=== PATIENT | female | born 1975 | race Caucasian/White ===

== ENCOUNTER 2020-10-15 09:43 | Emergency (ER) | payer OTHER, SELFPAY ==
--- NOTE | ~2020-10-15 | XR_ITS ---
EXAMINATION: XR wrist RT min 3V DATE: 10/15/2020 10:00 INDICATION: Right wrist injury and pain. TECHNIQUE: 4 views of right wrist were obtained. COMPARISON: None. FINDINGS: Bone alignment is normal. No fracture. Joint spaces are well maintained. IMPRESSION: 1. Normal right wrist. Reviewed, dictated and finalized at location A. IMPRESSION: 1. Normal right wrist.
[2020-10-15 09:50] VITALS: BP 150/79; PULSE 80; RESP 16; TEMP 36.3; O2SAT 100
--- NOTE | 2020-10-15 10:13 | ED.UPPEXIN ---
HPI - Extremity Injury (Upper) General Chief Complaint: Extremity Injury, Upper Stated Complaint: rt wrist injury Time Seen by Provider: 10/15/20 10:05 Source: patient and RN notes reviewed Mode of arrival: ambulatory Limitations: no limitations History of Present Illness HPI narrative: Patient presents today complaining of right wrist pain. Around midnight, she slammed her printer drawer closed at home and experienced sudden pain in her wrist. Denies numbness or tingling. Pain increases with movement of the wrist or thumb. She has been taking ibuprofen with some relief. She has also been wearing a wrist brace since the injury. Currently rates her pain at rest 2/10, which increases to 4/10 with movement. MD complaint: injury to: right and wrist Related Data Home Medications Medication Instructions Recorded Confirmed aspirin [Adult Low Dose Aspirin] 81 mg PO DAILY 10/15/20 10/15/20 atorvastatin 10/15/20 canagliflozin [Invokana] mg 10/15/20 liraglutide [Victoza 3-Marvel] mg SUBCUT 10/15/20 lisinopril 10/15/20 loratadine [Claritin] 10 mg PO DAILY 10/15/20 10/15/20 montelukast mg 10/15/20 Allergies Allergy/AdvReac Type Severity Reaction Status Date / Time amoxicillin Allergy Unknown Nausea and Verified 10/15/20 10:02 Vomiting glipizide Allergy Unknown NAUSEA AND Verified 10/15/20 10:02 VOMITING metformin Allergy Unknown Nausea and Verified 10/15/20 10:02 Vomiting hydrocodone AdvReac Unknown Nausea and Verified 10/15/20 10:02 Vomiting Review of Systems Review of Systems: Narrative: CONSTITUTIONAL: Denies body aches, fever, chills, or sweats. EYES: Denies visual changes, redness, or discharge. ENT: Denies rhinorrhea, congestion, sore throat, or otalgia. CARDIOVASCULAR: Denies chest pain, palpitations, or edema. RESPIRATORY: Denies cough or dyspnea. GASTROINTESTINAL: Denies abdominal pain, nausea, vomiting, or diarrhea. GENITOURINARY: Denies dysuria or hematuria. SKIN: Denies rash, itching, or wounds. MUSCULOSKELETAL: Denies back pain, or myalgia. + Right wrist injury NEUROLOGIC: Denies headache, numbness, tingling, or weakness. PSYCH: Denies depression or anxiety. [facility] Past Medical History Medical History (Updated 10/15/20 @ 10:18 by Rosanne Orlando, [employer], ) Diabetes Hypercholesterolemia Hypertension Comments At time of signature, I have reviewed and agree with nursing past medical, surgical, social and family history unless otherwise noted. Please see nursing chart for further information. There is no relevant family history pertinent to the presenting complaint Exam Narrative: Exam Narrative: GENERAL: Well-appearing, well-nourished, and in no acute distress. HEAD: Normocephalic, atraumatic. EYES: EOMI. No redness or drainage. Conjunctivae normal. ENT: Mucous membranes pink and moist. NECK: Normal AROM. CHEST: No respiratory distress. EXTREMITIES: Right wrist: Tenderness to the distal radius and thenar eminence without edema, ecchymosis, or erythema. No deformity noted. Full range of motion with increased pain with pronation. Distal sensation intact. Capillary refill normal. Radial pulse normal. SKIN: Warm, dry, no rash. Capillary refill normal. Normal skin turgor. NEURO: No focal deficits. Alert and oriented x3. Gait steady. PSYCH: Normal affect. No signs of depression or anxiety. Course Vital Signs Vital signs: Vital Signs Temperature 97.4 F L 10/15/20 09:50 Pulse Rate 80 10/15/20 09:50 Respiratory Rate 16 10/15/20 09:50 Blood Pressure 150/79 H 10/15/20 09:50 Pulse Oximetry 100 10/15/20 09:50 Temperature 97.4 F L 10/15/20 09:50 Pulse Rate 80 10/15/20 09:50 Respiratory Rate 16 10/15/20 09:50 Blood Pressure 150/79 H 10/15/20 09:50 Pulse Oximetry 100 10/15/20 09:50 Reviewed. Pt has been instructed to follow up with her PCP regarding her elevated blood pressure today. MDM - Extremity Injury (Upper) Differential Diagnosis
== END 2020-10-15 10:37 | disposition home or self-care (01) ==
PROVIDERS: Emergency Provider Nurse Practitioner; PCP Internal Medicine
DX: S63.501A Unspecified sprain of right wrist, initial encounter (principal); X50.9XXA Other and unspecified overexertion or strenuous movements or postures, initial encounter; E11.9 Type 2 diabetes mellitus without complications; E78.00 Pure hypercholesterolemia, unspecified; I10 Essential (primary) hypertension
CPT/HCPCS: 73110; 99203; G0463

== ENCOUNTER 2023-05-25 10:28 | Inpatient (IN) | payer OTHER, SELFPAY ==
[2023-05-25] VITALS (8 sets, daily range): BP systolic 146–175; BP diastolic 83–98; PULSE 108–119; RESP 18–19; TEMP 36.6–38.9; O2SAT 98–100; BMI 48.0
--- NOTE | ~2023-05-25 | XR_ITS ---
Clinical Indication: Cough PA and lateral views of the chest: Comparison: None Findings: The lungs are clear, without evidence of focal consolidation or pleural effusion. Cardiome diastinal silhouette is within normal limits. Bones and soft tissues are unremarkable. Impression: Normal chest. Reviewed, dictated and finalized at location . Impression: Normal chest.
--- NOTE | ~2023-05-25 | XR_ITS ---
EXAMINATION: XR tibia fibula RT 2V DATE: 05/26/2023 18:06 INDICATION: Right lower leg cellulitis. TECHNIQUE: 2 views of right tibia and fibula on 3 radiographs were obtained. COMPARISON: Right knee radiographs 05/09/2013 FINDINGS: Bone alignment is normal. No fracture. There is mild right knee osteoarthritis. There is dill bcutaneous edema in the lower leg. IMPRESSION: 1. Mild right knee osteoarthritis. Reviewed, dictated and finalized at location E.
--- NOTE | ~2023-05-25 | US_ITS ---
EXAMINATION:US venous doppler LE BI INDICATION:Leg swelling TECHNIQUE: Multiple grayscale, color flow and Doppler images of the right and left lower extremity de ep venous systems were obtained and reviewed. COMPARISON:No prior studies for comparison. FINDINGS: The common femoral, superficial femoral and popliteal veins demonstrate normal respiratory variation, augmentation and compressibility. Color flow is also seen within the posterior tibial, pe roneal, greater saphenous and profunda veins. There is right inguinal lymphadenopathy, largest measuring 3.9 x 2.6 x 1.9 cm. IMPRESSION: 1: No lower extremity deep venous thrombosis. 2: Right inguinal lymphadenopathy. Reviewed, dictated and finalized at location B.
--- NOTE | 2023-05-25 10:51 | ED.GENADULT ---
HPI - General Adult General Chief complaint: Unspecified Stated complaint: body aches, fever, lower leg red pain Time Seen by Provider: 05/25/23 10:42 History of Present Illness HPI narrative: Pt presents with low grade fever and body aches and redness to right leg since yesterday. Pt is daibetic as well. Pt has no prior history of celllulitis. Pt also has runny nose. Related Data Home Medications Medication Instructions Recorded Confirmed aspirin 81 mg tablet 81 mg PO DAILY 10/15/20 10/15/20 atorvastatin 20 mg tablet 10/15/20 canagliflozin 300 mg tablet mg 10/15/20 (Invokana) liraglutide 0.6 mg/0.1 mL (18 mg/3 mg subcut 10/15/20 mL) subcutaneous pen injector (Victoza 3-Marvel) lisinopril 10 mg tablet 10/15/20 loratadine 10 mg tablet (Claritin) 10 mg PO DAILY 10/15/20 10/15/20 montelukast 10 mg tablet mg 10/15/20 Allergies Allergy/AdvReac Type Severity Reaction Status Date / Time amoxicillin AdvReac Unknown Nausea and Verified 05/25/23 13:37 Vomiting glipizide AdvReac Unknown NAUSEA AND Verified 05/25/23 13:37 VOMITING hydrocodone AdvReac Unknown Nausea and Verified 05/25/23 10:43 Vomiting metformin AdvReac Unknown Nausea and Verified 05/25/23 13:37 Vomiting Review of Systems Review of Systems: All systems reviewed & are unremarkable except as noted in HPI and below PMFSH Past Medical History Medical History (Updated 05/25/23 @ 17:43 by Jose Jacobson APRN) Diabetes Hypercholesterolemia Hypertension JEREMY on CPAP Exam Const: General: cooperative, comfortable, no acute distress and well developed Nutritional Appearance: obese Orientation/consciousness: patient oriented x3 Limitations: no limitations Eyes: Conjunctivae: conjunctivae normal Neck: Neck: normal visual inspection and full ROM Resp: Effort & Inspection: normal respiratory effort and able to speak in complete sentences Auscultation: clear to auscultation bilaterally Cardio: Rate: regular rate Rhythm: regular rhythm GI: GI Palp: Yes Soft to palpation Percussion: Yes normal to percussion Auscultation: normal bowel sounds Skin: General skin exam: erythema (erythema to rle from ankle to just above knee) Neuro: General: patient oriented x3, moves all extremities and no meningeal signs Cranial nerves: Yes CN's II-XII intact bilaterally Extrem: General: full ROM and capillary refill normal Psych: Appearance: grossly normal Mental Status: mental status grossly normal Speech and movement: Normal speech and movement present Affect: normal affect Attitude: cooperative Thought content: Yes Normal thought content present Course Vital Signs Vital signs: Vital Signs Temperature 97.8 F 05/25/23 10:30 Pulse Rate 115 H 05/25/23 10:30 Respiratory Rate 18 05/25/23 10:30 Blood Pressure 154/98 H 05/25/23 10:30 Pulse Oximetry 100 05/25/23 10:30 Oxygen Delivery Room Air 05/25/23 10:30 Temperature 98.7 F 05/25/23 15:15 Pulse Rate 108 H 05/25/23 15:15 Respiratory Rate 19 05/25/23 15:15 Blood Pressure 175/89 H 05/25/23 15:15 Pulse Oximetry 98 05/25/23 15:15 Oxygen Delivery Room Air 05/25/23 10:30 Medical Decision Making MDM Narrative Medical decision making narrative: pt has what appears to be simple cellulitis but has progressed failrly quickly. pt is diabetic as well. will give ancef and check labs. wbc elevated glucose elevated others relativley normal. will admit for IV antibiotics. discussed with Tvao Nguyen and agrees to admit. Vital Signs Vital Signs: Vital Signs Temperature 97.8 F 05/25/23 10:30 Pulse Rate 115 H 05/25/23 10:30 Respiratory Rate 18 05/25/23 10:30 Blood Pressure 154/98 H 05/25/23 10:30 Pulse Oximetry 100 05/25/23 10:30 Oxygen Delivery Room Air 05/25/23 10:30 Temperature 98.7 F 05/25/23 15:15 Pulse Rate 108 H 05/25/23 15:15 Respiratory Rate 19 05/25/23 15:15 Blood Pressure 175/89 H 05/25/23 15:15
[2023-05-25 11:12] LABS: Hematocrit 39.3 % (37.0-47.0); Hemoglobin 12.9 g/dL (12.0-15.0); Mean Corpuscular HGB Conc 32.8 g/dl (32-36); Mean Corpuscular Hemoglobin 28.5 pg (26-34); Mean Corpuscular Volume 86.8 fl (80-100); Mean Platelet Volume 10.9 fl (7.4-10.4); Platelet Count Result 212 k/mm3 (150-375); Red Blood Count 4.53 M/mm3 (4.2-5.4); Red Cell Distribution Width 13.9 % (11.5-14.5); White Blood Count 13.6 K/mm3 (4.5-10.0)
[2023-05-25 11:22] LABS: Prothrombin Time 13.8 Seconds (11.1-14.7)
[2023-05-25 11:24] LABS: Lactic Acid Reflex 1.6 mmol/L (0.7-2.0); Partial Thromboplastin Time 41.1 SECONDS (22.3-36.8)
[2023-05-25 11:25] LABS: Alanine Aminotransferase 52 U/L (6-35); Albumin Level 3.5 g/dL (3.5-5.1); Alkaline Phosphatase 132 U/L (38-126); Anion Gap 7 mmol/L (8-16); Aspartate Amino Transferase 48 U/L (14-36); Bilirubin,Total 0.9 mg/dL (0.2-1.3); Blood Urea Nitrogen 16 mg/dL (7-17); Calcium 9.1 mg/dL (8.4-10.2); Carbon Dioxide 24 mmol/L (22-30); Chloride 98 mmol/L (98-107); Estimated CRCL calculation 122 ml/min; Estimated Glomerular Filt Rate > 60; Glucose 346 mg/dL (65-110); Potassium 3.9 mmol/L (3.4-5.0); Sodium 129 mmol/L (137-145)
[2023-05-25 11:27] LABS: Band Neutrophils Percent 15 % (0-6); Lymphocytes Absolute Manual 0.81 K/mm3 (1.1-4.5); Monocytes Absolute Manual 0.27 K/mm3 (0.1-0.90); Monocytes Percent Manual 2 % (3-9); Neutrophils Absolute Manual 12.51 K/mm3 (1.7-7.2); Neutrophils Percent Manual 77 % (46-73); Total Cells Counted 100
[2023-05-25 11:28] LABS: Platelet Estimate Adequate (Adequate); Schistocytes None Seen (NORMAL)
[2023-05-25 11:35] LABS: Appearance Urine Turbid (Clear); Bacteria Urine 4+ /hpf; Bilirubin Urine 2+ (Negative); Blood Urine Negative (Negative); Budding Yeast Urine Present /hpf; Color Urine Dark Yellow (Yellow); Glucose Urine UA 3+ mg/dL (Negative); Ketones Urine 3+ mg/dL (Negative); Leukocyte Esterase Ur Negative LEU/UL (Negative); Nitrate Urine Negative (Negative); Non Pathogenic Casts >20; Protein Urine 2+ mg/dL (Negative); RBC Urine >100 /hpf (0-2); Squamous Epithelial Cell Urine Many /hpf (Few); pH Urine 5.5 (5.0-9.0)
[2023-05-25 11:36] LABS: Specific Grav Ur 1.051 (1.001-1.035)
[2023-05-25 11:37] LABS: Add Urine Microscopic? YES
[2023-05-25] MEDS: ceFAZolin 1 GM/NS 50 ML 1 GM/50 ML BAG IVPB (11:46)
[2023-05-25 11:57] LABS: Influenza A QL RT-PCR Negative (Negative); Influenza B QL RT-PCR Negative (Negative); RSV RNA, RT-PCR Negative (Negative); SARS-CoV-2 RNA PCR Negative (Negative)
[2023-05-25 12:15] LABS: CRP 38.8 mg/dL (<1.0)
[2023-05-25 13:40] LABS: Glucose Point of Care 300 mg/dl (65-105)
--- NOTE | 2023-05-25 14:08 | PM.IMHP ---
H&P: HPI History of Present Illness Date/Time: 05/25/23 14:08 Chief Complaint: Cellulitis right lower extremity Narrative: This is a 47-year-old female patient insulin-dependent diabetic who presents to the emergency department with 2 day history viral symptoms as well as right lower extremity warmth erythema swelling and tenderness. Patient reports that her blood sugars have been higher than usual recently. She reports her some viral symptoms for several days and then she developed symptoms on Thursday (2 days ago) that included runny nose lightheadedness nausea fever. Patient reports noticing her right lower extremity being red tender so she presented to the emergency department today for evaluation. Patient does not recall any injury to the extremity. Patient reports a history of hypertension diabetes and seasonal allergies. She is also cholesterol medication for preventative measures. She also has a history of obstructive sleep apnea for which she uses CPAP. Patient denies smoking drug use or significant alcohol use. She has a past surgical history right knee arthroscopy and myomectomy. Review of Systems Review of Systems: All systems reviewed & are unremarkable except as noted in HPI and below PMFSH Past Medical History Medical History (Updated 05/25/23 @ 17:43 by Jose Jacobson APRN) Diabetes Hypercholesterolemia Hypertension JEREMY on CPAP Meds Home Medications and Allergies Home Medications Medication Instructions Recorded Confirmed Type aspirin 81 mg tablet 81 mg PO DAILY 10/15/20 10/15/20 History atorvastatin 20 mg tablet 10/15/20 History canagliflozin 300 mg tablet mg 10/15/20 History (Invokana) liraglutide 0.6 mg/0.1 mL (18 mg/3 mg subcut 10/15/20 History mL) subcutaneous pen injector (Victoza 3-Marvel) lisinopril 10 mg tablet 10/15/20 History loratadine 10 mg tablet (Claritin) 10 mg PO DAILY 10/15/20 10/15/20 History montelukast 10 mg tablet mg 10/15/20 History Allergies Allergy/AdvReac Type Severity Reaction Status Date / Time amoxicillin AdvReac Unknown Nausea and Verified 05/25/23 13:37 Vomiting glipizide AdvReac Unknown NAUSEA AND Verified 05/25/23 13:37 VOMITING hydrocodone AdvReac Unknown Nausea and Verified 05/25/23 10:43 Vomiting metformin AdvReac Unknown Nausea and Verified 05/25/23 13:37 Vomiting Vital Signs Vital Signs - 24 hr 05/25/23 10:30 05/25/23 12:31 05/25/23 12:46 Temperature 36.6 C Pulse Rate 115 H Respiratory Rate 18 Blood Pressure 154/98 H 148/96 H 146/90 H Pulse Oximetry 100 Oxygen Delivery Room Air 05/25/23 13:46 Temperature Pulse Rate Respiratory Rate Blood Pressure 159/86 H Pulse Oximetry Oxygen Delivery Exam Narrative: GENERAL: Generally well appearing, alert and oriented, in no apparent distress. She is pleasant and conversant in full sentences. HEENT: Pupils are equally round and briskly reactive to light. Extraocular muscles are intact. Oral mucous membranes are moist without lesions. NECK: The patient has no noted JVD. No adenopathy is appreciated. CHEST/LUNGS: Lungs are clear bilaterally without rhonchi, rales, or wheezes. There is no subcutaneous air appreciated. There is no tenderness to the chest wall. HEART: The patient has a regular rate and rhythm. No murmurs, rubs, or gallops are appreciated. Distal pulses are 2+. No carotid bruits appreciated. ABDOMEN: The patient?s abdomen is obese, soft, nontender, and nondistended. Bowel sounds are positive. No organomegaly is appreciated. No masses are appreciated. There are no peritoneal signs. There is no Morris?s sign. EXTREMITIES: Right lower extremity has blanchable erythema just above the knee down to mid foot that is mildly swollen tender to the touch and erythematous with mild breaking skin likely from shaving in a couple spots. Equivocal Homans. There is no focal long bone tenderness or deformity. SKIN: The patient?s skin is oth
[2023-05-25] MEDS: ceFAZolin 2 GM/D5W 50 ML 2 GM/50 ML BAG IVPB ×2 (15:52→22:51)
[2023-05-25 17:01] LABS: Glucose Point of Care 343 mg/dl (65-105)
[2023-05-25 17:40] LABS: Hemoglobin A1C 9.9 % (<5.7)
[2023-05-25] MEDS: ENOXAPARIN 40 MG/0.4 ML SYRINGE SUB-Q (18:28)
[2023-05-25] MEDS: INSULIN ASPART (*BKC) 100 UNITS/ML 10 UNITS SUB-Q (18:29)
[2023-05-25] MEDS: INSULIN ASPART (*BKC) 100 UNITS/ML SUB-Q ×2 (18:29→21:29)
[2023-05-25] MEDS: SODIUM CHLORIDE 0.9% IV 1,000 ML 999 ML IV CONT (18:34)
[2023-05-25] MEDS: INSULIN GLARGINE (*BKC) 100 UNITS/ML 25 UNITS SUB-Q (21:28)
[2023-05-25] MEDS: ACETAMINOPHEN 500 MG TABLET 1000 MG PO (21:29)
[2023-05-25] MEDS: MONTELUKAST SODIUM 10 MG TABLET PO (21:29)
[2023-05-25] MEDS: ATORVASTATIN 20 MG TABLET PO (21:29)
[2023-05-25 22:23] LABS: Glucose Point of Care 320 mg/dl (65-105)
[2023-05-26 00:37] VITALS: TEMP 37.2
[2023-05-26] MEDS: ACETAMINOPHEN 500 MG TABLET 1000 MG PO ×2 (05:28→12:50)
[2023-05-26] MEDS: ceFAZolin 2 GM/D5W 50 ML 2 GM/50 ML BAG IVPB ×2 (05:29→14:09)
[2023-05-26 06:00] VITALS: BP 176/102; PULSE 110; RESP 18; TEMP 37.7; O2SAT 96
[2023-05-26 06:52] LABS: Basophils Absolute Auto 0.1 K/mm3 (0.0-0.1); Basophils Percent Auto 0.4 % (0.2-1.2); Eosinophils Percent Auto 0.2 % (0-4.4); Hemoglobin 11.7 g/dL (12.0-15.0); Immature Granulocyte Percent A 1.4 % (0-0.5); Lymphocytes Absolute Auto 1.05 K/mm3 (0.9-3.2); Lymphocytes Percent Auto 7.6 % (18.3-44.2); Mean Corpuscular HGB Conc 31.6 g/dl (32-36); Mean Corpuscular Volume 88.5 fl (80-100); Monocytes Absolute Auto 0.6 K/mm3 (0.1-0.6); Monocytes Percent Auto 4.5 % (2.6-8.5); Neutrophils Absolute Auto 11.9 K/mm3 (1.3-6.7); Neutrophils Percent Auto 85.9 % (45.5-73.1); Platelet Count Result 213 k/mm3 (150-375); Red Blood Count 4.18 M/mm3 (4.2-5.4); Red Cell Distribution Width 14.3 % (11.5-14.5); White Blood Count 13.8 K/mm3 (4.5-10.0)
[2023-05-26 07:50] LABS: Glucose Point of Care 222 mg/dl (65-105)
[2023-05-26 08:12] LABS: Albumin Level 3.5 g/dL (3.5-5.1); Anion Gap 11 mmol/L (8-16); Blood Urea Nitrogen 12 mg/dL (7-17); Calcium 8.6 mg/dL (8.4-10.2); Carbon Dioxide 22 mmol/L (22-30); Chloride 98 mmol/L (98-107); Estimated CRCL calculation 141 ml/min; Estimated Glomerular Filt Rate > 60; Glucose 232 mg/dL (65-110); Phosphorus 2.8 mg/dL (2.5-4.5); Potassium 3.4 mmol/L (3.4-5.0); Sodium 131 mmol/L (137-145)
[2023-05-26] MEDS: INSULIN ASPART (*BKC) 100 UNITS/ML SUB-Q ×4 (08:38→20:55)
[2023-05-26 08:40] VITALS: O2SAT 93
[2023-05-26] MEDS: INSULIN GLARGINE (*BKC) 100 UNITS/ML 25 UNITS SUB-Q ×2 (08:40→20:54)
[2023-05-26] MEDS: LORATADINE 10 MG TABLET PO (08:41)
[2023-05-26] MEDS: VENLAFAXINE HCL XR 75 MG CAP.ER.24H 150 MG PO (08:42)
[2023-05-26] MEDS: ASPIRIN 81 MG ENTERIC TABLET PO (08:42)
[2023-05-26] MEDS: lisinopriL 20 MG TABLET PO (08:42)
--- NOTE | 2023-05-26 09:09 | P.PNIM_ITS ---
Progress Note: A&P Assessment and Plan (1) Sepsis: Onset Date: ~05/25/23 Code(s): A41.9 - Sepsis, unspecified organism Status: Acute Assessment and Plan: 05/26/23: * patient meeting sepsis criteria on admission white blood cell count 13.6, temp 102?, pulse 115 * blood and urine cultures obtained * currently on cefazolin IV, will switch to ampicillin 3 g q.6 hour and we will be adding vancomycin IV. * Will check a toxoplasma IgG and toxoplasma IgM antibodies considering she has new cats in the home. * white blood cell count 13.8, absolute neutrophils 11.9 temp this morning 99.8, pulse 110, blood pressure 176/102, she remains on room air. * Continue to monitor labs (2) Cellulitis: Code(s): L03.90 - Cellulitis, unspecified Status: Acute Assessment and Plan: 05/25/23:(Copied from chart) * Right lower extremity appearance of cellulitis started on Ancef in the emergency department will continue Ancef 2 g q.8 hours. * White blood cell count elevated at 13.6, trend daily labs 05/26/23: * white blood cell count 13.8 * patient originally on Ancef 2 g Q 8 hours, we switched to ampicillin 3 g to 6 hour and vancomycin IV * checking toxoplasma IgG and IgM antibodies since she reported new cats in the home and currently has a scratch on her right leg and a small scabbed area. * May need to get Infectious Disease involved if she does not start responding to treatment. * tib-fib x-ray showing subcutaneous edema in the lower leg, mild right knee osteoarthritis. (3) Diabetes mellitus, insulin dependent (IDDM), uncontrolled: Status: Acute Assessment and Plan: 05/25/23:(copied from chart) * Patient reports poor glycemic control with last A1c greater than. She is combination long-acting and short-acting insulin. We will continue therapeutic substitution patient's insulin regimen as well as ACHS fingerstick glucose and high-dose corrective insulin. A1c ordered. 05/26/23: * Hemoglobin A1c 9.9, blood sugars ranging 222-312 today * continue Lantus 25 units b.i.d. as this is her home regimen * continue aspart 10 units subQ daily as this is her home regimen * added high-dose sliding scale * she will need tight glycemic control considering this new sepsis related to her cellulitis, may need adjustments in her Lantus tomorrow. (4) Hypertension: Qualifiers: Hypertension type: primary hypertension Qualified Code(s): I10 - Essential (primary) hypertension Code(s): I10 - Essential (primary) hypertension Status: Acute Assessment and Plan: 05/25/23: (copied from chart) * Stable, continue home medications. Blood pressure reviewed on 05/25. 05/26/23: * blood pressure ranging 176/102 to 190/102 * continue lisinopril 20 mg daily * I added hydralazine 10 mg IV push Q 8 hour p.r.n. with parameters * I also started patient on Norvasc 2.5 mg to start as this is not part of her daily regimen. If she still remains hypertensive tomorrow we may be able to make adjustments here. (5) JEREMY on CPAP: Code(s): G47.33 - Obstructive sleep apnea (adult) (pediatric) Status: Acute Assessment and Plan: 05/25/23: (copied from chart) * Patient plans on bring in home CPAP unit. Encourage compliance. 05/26/23: * Patient will use home CPAP * no change in current treatment plan (6) Hyponatremia: Code(s): E87.1 - Hypo-osmolality and hyponatremia Status: Acute Assessment and Plan: 05/25/23: (copied from chart) * Mild hyponatremia somewhat suppressed by elevated glucose.
--- NOTE | 2023-05-26 09:09 | PM.IMPN ---
Progress Note: A&P Assessment and Plan (1) Sepsis: Onset Date: ~05/25/23 Code(s): A41.9 - Sepsis, unspecified organism Status: Acute Assessment and Plan: 05/26/23: patient meeting sepsis criteria on admission white blood cell count 13.6, temp 102?, pulse 115 blood and urine cultures obtained currently on cefazolin IV, will switch to ampicillin 3 g q.6 hour and we will be adding vancomycin IV. Will check a toxoplasma IgG and toxoplasma IgM antibodies considering she has new cats in the home. white blood cell count 13.8, absolute neutrophils 11.9 temp this morning 99.8, pulse 110, blood pressure 176/102, she remains on room air. Continue to monitor labs (2) Cellulitis: Code(s): L03.90 - Cellulitis, unspecified Status: Acute Assessment and Plan: 05/25/23:(Copied from chart) Right lower extremity appearance of cellulitis started on Ancef in the emergency department will continue Ancef 2 g q.8 hours. White blood cell count elevated at 13.6, trend daily labs 05/26/23: white blood cell count 13.8 patient originally on Ancef 2 g Q 8 hours, we switched to ampicillin 3 g to 6 hour and vancomycin IV checking toxoplasma IgG and IgM antibodies since she reported new cats in the home and currently has a scratch on her right leg and a small scabbed area. May need to get Infectious Disease involved if she does not start responding to treatment. tib-fib x-ray showing subcutaneous edema in the lower leg, mild right knee osteoarthritis. (3) Diabetes mellitus, insulin dependent (IDDM), uncontrolled: Status: Acute Assessment and Plan: 05/25/23:(copied from chart) Patient reports poor glycemic control with last A1c greater than. She is combination long-acting and short-acting insulin. We will continue therapeutic substitution patient's insulin regimen as well as ACHS fingerstick glucose and high-dose corrective insulin. A1c ordered. 05/26/23: Hemoglobin A1c 9.9, blood sugars ranging 222-312 today continue Lantus 25 units b.i.d. as this is her home regimen continue aspart 10 units subQ daily as this is her home regimen added high-dose sliding scale she will need tight glycemic control considering this new sepsis related to her cellulitis, may need adjustments in her Lantus tomorrow. (4) Hypertension: Qualifiers: Hypertension type: primary hypertension Qualified Code(s): I10 - Essential (primary) hypertension Code(s): I10 - Essential (primary) hypertension Status: Acute Assessment and Plan: 05/25/23: (copied from chart) Stable, continue home medications. Blood pressure reviewed on 05/25. 05/26/23: blood pressure ranging 176/102 to 190/102 continue lisinopril 20 mg daily I added hydralazine 10 mg IV push Q 8 hour p.r.n. with parameters I also started patient on Norvasc 2.5 mg to start as this is not part of her daily regimen. If she still remains hypertensive tomorrow we may be able to make adjustments here. (5) JEREMY on CPAP: Code(s): G47.33 - Obstructive sleep apnea (adult) (pediatric) Status: Acute Assessment and Plan: 05/25/23: (copied from chart) Patient plans on bring in home CPAP unit. Encourage compliance. 05/26/23: Patient will use home CPAP no change in current treatment plan (6) Hyponatremia: Code(s): E87.1 - Hypo-osmolality and hyponatremia Status: Acute Assessment and Plan: 05/25/23: (copied from chart) Mild hyponatremia somewhat suppressed by elevated glucose. Initial level 129. Trend with daily labs. Likely related to elevated glucose and active infection. 05/26/23: sodium level 132 continue to trend labs (7) Dehydration: Code(s): E86.0 - Dehydration Status: Acute Assessment and Plan: 05/25/23: (copied from chart) Urinalysis shows elevated specific gravity, positive ketones and greater than 20 urine casts. Overall it is a
[2023-05-26 10:01] LABS: Lactic Acid Reflex 1.2 mmol/L (0.7-2.0); Magnesium 1.8 mg/dL (1.6-2.3)
[2023-05-26 10:03] LABS: Alanine Aminotransferase 34 U/L (6-35); Albumin Level 3.3 g/dL (3.5-5.1); Alkaline Phosphatase 114 U/L (38-126); Anion Gap 9 mmol/L (8-16); Aspartate Amino Transferase 33 U/L (14-36); Bilirubin,Total 0.7 mg/dL (0.2-1.3); Blood Urea Nitrogen 12 mg/dL (7-17); Calcium 8.2 mg/dL (8.4-10.2); Carbon Dioxide 22 mmol/L (22-30); Chloride 99 mmol/L (98-107); Estimated CRCL calculation 141 ml/min; Estimated Glomerular Filt Rate > 60; Glucose 297 mg/dL (65-110); Potassium 3.4 mmol/L (3.4-5.0); Sodium 130 mmol/L (137-145)
[2023-05-26 11:29] LABS: Glucose Point of Care 312 mg/dl (65-105)
[2023-05-26 12:12] VITALS: BP 190/102
[2023-05-26] MEDS: amLODIPine BESYLATE 2.5 MG TABLET PO (12:50)
[2023-05-26 14:00] VITALS: BP 152/89; PULSE 106; RESP 26; TEMP 35.8; O2SAT 99
[2023-05-26] MEDS: traMADol HCL (*CRX) 50 MG TABLET PO ×2 (14:09→20:53)
[2023-05-26 16:42] LABS: Glucose Point of Care 279 mg/dl (65-105)
[2023-05-26] MEDS: VANCOMYCIN 1,250 MG/NS 250 ML 1,250 MG/250 ML BAG 166.67 MG IVPB ×2 (16:42)
[2023-05-26] MEDS: ENOXAPARIN 40 MG/0.4 ML SYRINGE SUB-Q (18:22)
[2023-05-26] MEDS: INSULIN ASPART (*BKC) 100 UNITS/ML 10 UNITS SUB-Q (18:25)
[2023-05-26 20:26] LABS: Glucose Point of Care 293 mg/dl (65-105)
[2023-05-26] MEDS: AMPICILLIN SULB 3 GM/NS 100 ML 3 GM/100 ML VIAL IVPB (20:27)
[2023-05-26 20:50] LABS: Procalcitonin 1.9 ng/mL
[2023-05-26] MEDS: ATORVASTATIN 20 MG TABLET PO (20:53)
[2023-05-26] MEDS: MONTELUKAST SODIUM 10 MG TABLET PO (20:53)
[2023-05-26 22:00] VITALS: BP 191/92; PULSE 116; RESP 16; TEMP 36.1; O2SAT 96
[2023-05-26] MEDS: hydrALAZINE HCL 20 MG/ML VIAL 10 MG IV PUSH (22:07)
[2023-05-27] MEDS: AMPICILLIN SULB 3 GM/NS 100 ML 3 GM/100 ML VIAL IVPB ×2 (00:30→06:36)
[2023-05-27 06:00] VITALS: BP 180/97; PULSE 102; RESP 18; TEMP 35.8; O2SAT 97
[2023-05-27 06:12] LABS: Basophils Absolute Auto 0.1 K/mm3 (0.0-0.1); Basophils Percent Auto 0.5 % (0.2-1.2); Eosinophils Percent Auto 0.2 % (0-4.4); Hematocrit 35.4 % (37.0-47.0); Hemoglobin 11.3 g/dL (12.0-15.0); Immature Granulocyte Percent A 2.1 % (0-0.5); Lymphocytes Absolute Auto 1.51 K/mm3 (0.9-3.2); Lymphocytes Percent Auto 10.4 % (18.3-44.2); Mean Corpuscular HGB Conc 31.9 g/dl (32-36); Mean Corpuscular Volume 87.8 fl (80-100); Mean Platelet Volume 10.8 fl (7.4-10.4); Monocytes Percent Auto 6.9 % (2.6-8.5); Neutrophils Absolute Auto 11.7 K/mm3 (1.3-6.7); Neutrophils Percent Auto 79.9 % (45.5-73.1); Platelet Count Result 218 k/mm3 (150-375); Red Blood Count 4.03 M/mm3 (4.2-5.4); Red Cell Distribution Width 14.4 % (11.5-14.5); White Blood Count 14.6 K/mm3 (4.5-10.0)
[2023-05-27 06:24] LABS: Albumin Level 3.3 g/dL (3.5-5.1); Anion Gap 8 mmol/L (8-16); Blood Urea Nitrogen 9 mg/dL (7-17); Calcium 8.1 mg/dL (8.4-10.2); Carbon Dioxide 26 mmol/L (22-30); Chloride 94 mmol/L (98-107); Estimated CRCL calculation 141 ml/min; Estimated Glomerular Filt Rate > 60; Glucose 245 mg/dL (65-110); Phosphorus 2.9 mg/dL (2.5-4.5); Potassium 3.4 mmol/L (3.4-5.0); Sodium 128 mmol/L (137-145)
[2023-05-27] MEDS: traMADol HCL (*CRX) 50 MG TABLET PO ×2 (06:44→21:13)
[2023-05-27 07:58] LABS: Glucose Point of Care 227 mg/dl (65-105)
[2023-05-27] MEDS: lisinopriL 20 MG TABLET PO (09:10)
[2023-05-27] MEDS: ASPIRIN 81 MG ENTERIC TABLET PO (09:10)
[2023-05-27] MEDS: VENLAFAXINE HCL XR 75 MG CAP.ER.24H 150 MG PO (09:10)
[2023-05-27] MEDS: LORATADINE 10 MG TABLET PO (09:10)
[2023-05-27] MEDS: amLODIPine BESYLATE 2.5 MG TABLET PO (09:10)
[2023-05-27] MEDS: INSULIN ASPART (*BKC) 100 UNITS/ML SUB-Q ×4 (09:11→21:14)
[2023-05-27] MEDS: INSULIN ASPART (*BKC) 100 UNITS/ML 10 UNITS SUB-Q (09:11)
[2023-05-27] MEDS: INSULIN GLARGINE (*BKC) 100 UNITS/ML 25 UNITS SUB-Q (09:19)
[2023-05-27 11:37] LABS: Glucose Point of Care 261 mg/dl (65-105)
[2023-05-27] MEDS: SULFAMETHOXAZOLE/TRIMETHOPRIM 800/160 MG DS TABLET 2 TAB PO ×2 (12:23→21:13)
[2023-05-27] MEDS: predniSONE 20 MG TABLET 60 MG PO (12:38)
--- NOTE | 2023-05-27 12:38 | P.PNIM_ITS ---
Progress Note: A&P Assessment and Plan (1) Sepsis: Onset Date: ~05/25/23 Code(s): A41.9 - Sepsis, unspecified organism Status: Acute Assessment and Plan: 05/26/23: * patient meeting sepsis criteria on admission white blood cell count 13.6, temp 102?, pulse 115 * blood and urine cultures obtained * currently on cefazolin IV, will switch to ampicillin 3 g q.6 hour and we will be adding vancomycin IV. * Will check a toxoplasma IgG and toxoplasma IgM antibodies considering she has new cats in the home. * white blood cell count 13.8, absolute neutrophils 11.9 temp this morning 99.8, pulse 110, blood pressure 176/102, she remains on room air. * Continue to monitor labs 05/27: Cultures negative to date. No change in borders erythema despite escalation of antibiotics. Suspect vasculitis redness cellulitis. Changed antibiotics to Bactrim 2 tabs b.i.d. and added prednisone. (2) Cellulitis: Code(s): L03.90 - Cellulitis, unspecified Status: Acute Assessment and Plan: 05/25/23:(Copied from chart) * Right lower extremity appearance of cellulitis started on Ancef in the emergency department will continue Ancef 2 g q.8 hours. * White blood cell count elevated at 13.6, trend daily labs 05/26/23: * white blood cell count 13.8 * patient originally on Ancef 2 g Q 8 hours, we switched to ampicillin 3 g to 6 hour and vancomycin IV * checking toxoplasma IgG and IgM antibodies since she reported new cats in the home and currently has a scratch on her right leg and a small scabbed area. * tib-fib x-ray showing subcutaneous edema in the lower leg, mild right knee osteoarthritis. 05/27: Cultures negative to date. No change in borders erythema despite escalation of antibiotics. Suspect vasculitis redness cellulitis. Changed antibiotics to Bactrim 2 tabs b.i.d. and added prednisone. (3) Diabetes mellitus, insulin dependent (IDDM), uncontrolled: Status: Acute Assessment and Plan: 05/25/23:(copied from chart) * Patient reports poor glycemic control with last A1c greater than. She is combination long-acting and short-acting insulin. We will continue therapeutic substitution patient's insulin regimen as well as ACHS fingerstick glucose and high-dose corrective insulin. A1c ordered. 05/26/23: * Hemoglobin A1c 9.9, blood sugars ranging 222-312 today * continue Lantus 25 units b.i.d. as this is her home regimen * continue aspart 10 units subQ daily as this is her home regimen * added high-dose sliding scale * she will need tight glycemic control considering this new sepsis related to her cellulitis, may need adjustments in her Lantus tomorrow. 05/27: Added prednisone which will escalate blood sugars. Will increase Lantus while on steroids. (4) Hypertension: Qualifiers: Hypertension type: primary hypertension Qualified Code(s): I10 - Essential (primary) hypertension Code(s): I10 - Essential (primary) hypertension Status: Acute Assessment and Plan: 05/25/23: (copied from chart) * Stable, continue home medications. Blood pressure reviewed on 05/25. 05/26/23: * blood pressure ranging 176/102 to 190/102 * continue lisinopril 20 mg daily * I added hydralazine 10 mg IV push Q 8 hour p.r.n. with parameters * I also started patient on Norvasc 2.5 mg to start as this is not part of her daily regimen. If she still remains hypertensive tomorrow we may be able to make adjustments here. 05/27: Blood pressures remain elevated. Patient notes forearm BP being used and incorrect size cuff in room. I alerted RN and they wi
--- NOTE | 2023-05-27 12:38 | PM.IMPN ---
Progress Note: A&P Assessment and Plan (1) Sepsis: Onset Date: ~05/25/23 Code(s): A41.9 - Sepsis, unspecified organism Status: Acute Assessment and Plan: 05/26/23: patient meeting sepsis criteria on admission white blood cell count 13.6, temp 102?, pulse 115 blood and urine cultures obtained currently on cefazolin IV, will switch to ampicillin 3 g q.6 hour and we will be adding vancomycin IV. Will check a toxoplasma IgG and toxoplasma IgM antibodies considering she has new cats in the home. white blood cell count 13.8, absolute neutrophils 11.9 temp this morning 99.8, pulse 110, blood pressure 176/102, she remains on room air. Continue to monitor labs 05/27: Cultures negative to date. No change in borders erythema despite escalation of antibiotics. Suspect vasculitis redness cellulitis. Changed antibiotics to Bactrim 2 tabs b.i.d. and added prednisone. (2) Cellulitis: Code(s): L03.90 - Cellulitis, unspecified Status: Acute Assessment and Plan: 05/25/23:(Copied from chart) Right lower extremity appearance of cellulitis started on Ancef in the emergency department will continue Ancef 2 g q.8 hours. White blood cell count elevated at 13.6, trend daily labs 05/26/23: white blood cell count 13.8 patient originally on Ancef 2 g Q 8 hours, we switched to ampicillin 3 g to 6 hour and vancomycin IV checking toxoplasma IgG and IgM antibodies since she reported new cats in the home and currently has a scratch on her right leg and a small scabbed area. tib-fib x-ray showing subcutaneous edema in the lower leg, mild right knee osteoarthritis. 05/27: Cultures negative to date. No change in borders erythema despite escalation of antibiotics. Suspect vasculitis redness cellulitis. Changed antibiotics to Bactrim 2 tabs b.i.d. and added prednisone. (3) Diabetes mellitus, insulin dependent (IDDM), uncontrolled: Status: Acute Assessment and Plan: 05/25/23:(copied from chart) Patient reports poor glycemic control with last A1c greater than. She is combination long-acting and short-acting insulin. We will continue therapeutic substitution patient's insulin regimen as well as ACHS fingerstick glucose and high-dose corrective insulin. A1c ordered. 05/26/23: Hemoglobin A1c 9.9, blood sugars ranging 222-312 today continue Lantus 25 units b.i.d. as this is her home regimen continue aspart 10 units subQ daily as this is her home regimen added high-dose sliding scale she will need tight glycemic control considering this new sepsis related to her cellulitis, may need adjustments in her Lantus tomorrow. 05/27: Added prednisone which will escalate blood sugars. Will increase Lantus while on steroids. (4) Hypertension: Qualifiers: Hypertension type: primary hypertension Qualified Code(s): I10 - Essential (primary) hypertension Code(s): I10 - Essential (primary) hypertension Status: Acute Assessment and Plan: 05/25/23: (copied from chart) Stable, continue home medications. Blood pressure reviewed on 05/25. 05/26/23: blood pressure ranging 176/102 to 190/102 continue lisinopril 20 mg daily I added hydralazine 10 mg IV push Q 8 hour p.r.n. with parameters I also started patient on Norvasc 2.5 mg to start as this is not part of her daily regimen. If she still remains hypertensive tomorrow we may be able to make adjustments here. 05/27: Blood pressures remain elevated. Patient notes forearm BP being used and incorrect size cuff in room. I alerted RN and they will obtain new BP with proper sized equipment and document. (5) JEREMY on CPAP: Code(s): G47.33 - Obstructive sleep apnea (adult) (pediatric) Status: Acute Assessment and Plan: 05/25/23: (copied from chart) Patient plans on bring in home CPAP unit. Encourage compliance. 05/26/23: Patient will use home CPAP no change in current treatment plan
[2023-05-27 14:00] VITALS: BP 145/88; PULSE 88; RESP 18; TEMP 36.5; O2SAT 97
[2023-05-27 16:58] LABS: Glucose Point of Care 264 mg/dl (65-105)
[2023-05-27] MEDS: ENOXAPARIN 40 MG/0.4 ML SYRINGE SUB-Q (17:27)
[2023-05-27] MEDS: ATORVASTATIN 20 MG TABLET PO (21:13)
[2023-05-27] MEDS: MONTELUKAST SODIUM 10 MG TABLET PO (21:13)
[2023-05-27] MEDS: INSULIN GLARGINE (*BKC) 100 UNITS/ML 35 UNITS SUB-Q (21:14)
[2023-05-27 21:15] LABS: Glucose Point of Care 332 mg/dl (65-105)
[2023-05-27 22:00] VITALS: BP 172/85; PULSE 103; RESP 24; TEMP 36.2; O2SAT 96
[2023-05-28 06:00] VITALS: BP 147/85; PULSE 78; RESP 22; TEMP 36.2; O2SAT 100
[2023-05-28 06:14] LABS: Hematocrit 35.5 % (37.0-47.0); Hemoglobin 11.4 g/dL (12.0-15.0); Mean Corpuscular HGB Conc 32.1 g/dl (32-36); Mean Corpuscular Hemoglobin 27.9 pg (26-34); Mean Corpuscular Volume 86.8 fl (80-100); Mean Platelet Volume 10.8 fl (7.4-10.4); Platelet Count Result 241 k/mm3 (150-375); Red Blood Count 4.09 M/mm3 (4.2-5.4); Red Cell Distribution Width 14.5 % (11.5-14.5); White Blood Count 16.9 K/mm3 (4.5-10.0)
[2023-05-28 06:27] LABS: Albumin Level 3.3 g/dL (3.5-5.1); Anion Gap 8 mmol/L (8-16); Blood Urea Nitrogen 11 mg/dL (7-17); Calcium 8.5 mg/dL (8.4-10.2); Carbon Dioxide 27 mmol/L (22-30); Chloride 97 mmol/L (98-107); Estimated CRCL calculation 166 ml/min; Estimated Glomerular Filt Rate > 60; Glucose 232 mg/dL (65-110); Potassium 3.5 mmol/L (3.4-5.0); Sodium 132 mmol/L (137-145)
[2023-05-28 07:00] LABS: Band Neutrophils Percent 4 % (0-6); Lymphocytes Absolute Manual 1.52 K/mm3 (1.1-4.5); Metamyelocytes Percent 2 %; Monocytes Percent Manual 3 % (3-9); Neutrophils Absolute Manual 14.53 K/mm3 (1.7-7.2); Neutrophils Percent Manual 82 % (46-73); Total Cells Counted 100
[2023-05-28 07:01] LABS: Platelet Estimate Adequate (Adequate); Schistocytes None Seen (NORMAL)
[2023-05-28 07:53] LABS: Glucose Point of Care 211 mg/dl (65-105)
[2023-05-28] MEDS: amLODIPine BESYLATE 2.5 MG TABLET PO (08:30)
[2023-05-28] MEDS: predniSONE 20 MG TABLET 60 MG PO (08:30)
[2023-05-28] MEDS: lisinopriL 20 MG TABLET PO (08:31)
[2023-05-28] MEDS: SULFAMETHOXAZOLE/TRIMETHOPRIM 800/160 MG DS TABLET 2 TAB PO ×2 (08:31→21:21)
[2023-05-28] MEDS: ASPIRIN 81 MG ENTERIC TABLET PO (08:31)
[2023-05-28] MEDS: VENLAFAXINE HCL XR 75 MG CAP.ER.24H 150 MG PO (08:31)
[2023-05-28] MEDS: LORATADINE 10 MG TABLET PO (08:31)
[2023-05-28] MEDS: INSULIN GLARGINE (*BKC) 100 UNITS/ML 35 UNITS SUB-Q ×2 (08:35→21:21)
[2023-05-28] MEDS: INSULIN ASPART (*BKC) 100 UNITS/ML SUB-Q ×4 (08:36→21:22)
[2023-05-28 09:10] LABS: Procalcitonin 0.9 ng/mL
[2023-05-28 11:38] LABS: Glucose Point of Care 390 mg/dl (65-105)
--- NOTE | 2023-05-28 11:51 | PM.IMPN ---
Progress Note: A&P Assessment and Plan (1) Sepsis: Onset Date: ~05/25/23 Code(s): A41.9 - Sepsis, unspecified organism Status: Acute Assessment and Plan: 05/26/23: patient meeting sepsis criteria on admission white blood cell count 13.6, temp 102?, pulse 115 blood and urine cultures obtained currently on cefazolin IV, will switch to ampicillin 3 g q.6 hour and we will be adding vancomycin IV. Will check a toxoplasma IgG and toxoplasma IgM antibodies considering she has new cats in the home. white blood cell count 13.8, absolute neutrophils 11.9 temp this morning 99.8, pulse 110, blood pressure 176/102, she remains on room air. Continue to monitor labs 05/27: Cultures negative to date. No change in borders erythema despite escalation of antibiotics. Suspect vasculitis redness cellulitis. Changed antibiotics to Bactrim 2 tabs b.i.d. and added prednisone. 05/28: Erythema beginning to resolve and splotchy areas and overall swelling of the leg is improved. No further extension of erythema. White blood cell count remains elevated but she is on steroids. Procalcitonin is improving. No fevers no chills. Tachycardia is resolved. (2) Vasculitis: Code(s): I77.6 - Arteritis, unspecified Status: Acute Assessment and Plan: Improving with steroids. Will plan to DC with total 7 days burst of steroids. (3) Diabetes mellitus, insulin dependent (IDDM), uncontrolled: Status: Acute Assessment and Plan: 05/25/23:(copied from chart) Patient reports poor glycemic control with last A1c greater than. She is combination long-acting and short-acting insulin. We will continue therapeutic substitution patient's insulin regimen as well as ACHS fingerstick glucose and high-dose corrective insulin. A1c ordered. 05/26/23: Hemoglobin A1c 9.9, blood sugars ranging 222-312 today continue Lantus 25 units b.i.d. as this is her home regimen continue aspart 10 units subQ daily as this is her home regimen added high-dose sliding scale she will need tight glycemic control considering this new sepsis related to her cellulitis, may need adjustments in her Lantus tomorrow. 05/27: Added prednisone which will escalate blood sugars. Will increase Lantus while on steroids. 05/28: Discussed increased Lantus regimen with patient. Will plan steroids for 7 days total and patient will increase Lantus for same duration. Blood sugars are much improved. (4) Hypertension: Qualifiers: Hypertension type: primary hypertension Qualified Code(s): I10 - Essential (primary) hypertension Code(s): I10 - Essential (primary) hypertension Status: Acute Assessment and Plan: 05/25/23: (copied from chart) Stable, continue home medications. Blood pressure reviewed on 05/25. 05/26/23: blood pressure ranging 176/102 to 190/102 continue lisinopril 20 mg daily I added hydralazine 10 mg IV push Q 8 hour p.r.n. with parameters I also started patient on Norvasc 2.5 mg to start as this is not part of her daily regimen. If she still remains hypertensive tomorrow we may be able to make adjustments here. 05/27: Blood pressures remain elevated. Patient notes forearm BP being used and incorrect size cuff in room. I alerted RN and they will obtain new BP with proper sized equipment and document. 05/28: Blood pressure much improved. (5) JEREMY on CPAP: Code(s): G47.33 - Obstructive sleep apnea (adult) (pediatric) Status: Acute Assessment and Plan: 05/25/23: (copied from chart) Patient plans on bring in home CPAP unit. Encourage compliance. 05/26/23: Patient will use home CPAP no change in current treatment plan No concerns (6) Hyponatremia: Code(s): E87.1 - Hypo-osmolality and hyponatremia Status: Acute Assessment and Plan: 05/25/23: (copied from chart) Mild hyponatremia somewhat suppressed by elevated glucose. Initial level
[2023-05-28 13:56] LABS: Sodium Urine Random 109 meq/L
[2023-05-28 14:00] VITALS: BP 143/79; PULSE 96; RESP 18; TEMP 36.2; O2SAT 97
[2023-05-28 16:41] LABS: Glucose Point of Care 389 mg/dl (65-105)
[2023-05-28] MEDS: INSULIN ASPART (*BKC) 100 UNITS/ML 10 UNITS SUB-Q (17:23)
[2023-05-28] MEDS: ENOXAPARIN 40 MG/0.4 ML SYRINGE SUB-Q (17:25)
[2023-05-28 20:49] VITALS: BP 151/85; PULSE 95; RESP 18; TEMP 35.9; O2SAT 99
[2023-05-28] MEDS: MONTELUKAST SODIUM 10 MG TABLET PO (21:21)
[2023-05-28] MEDS: ATORVASTATIN 20 MG TABLET PO (21:21)
[2023-05-28 21:40] LABS: Glucose Point of Care 319 mg/dl (65-105)
[2023-05-28 23:18] VITALS: PULSE 96; O2SAT 97
[2023-05-29 06:00] VITALS: BP 142/73; PULSE 92; RESP 14; TEMP 36.1; O2SAT 98
[2023-05-29 07:09] LABS: Mean Corpuscular HGB Conc 31.6 g/dl (32-36); Mean Corpuscular Hemoglobin 27.5 pg (26-34); Mean Corpuscular Volume 87.2 fl (80-100); Mean Platelet Volume 10.3 fl (7.4-10.4); Platelet Count Result 364 k/mm3 (150-375); Red Blood Count 4.36 M/mm3 (4.2-5.4); Red Cell Distribution Width 14.6 % (11.5-14.5); White Blood Count 18.2 K/mm3 (4.5-10.0)
[2023-05-29 07:21] LABS: Albumin Level 3.5 g/dL (3.5-5.1); Anion Gap 10 mmol/L (8-16); Blood Urea Nitrogen 13 mg/dL (7-17); Calcium 8.6 mg/dL (8.4-10.2); Carbon Dioxide 25 mmol/L (22-30); Chloride 100 mmol/L (98-107); Estimated CRCL calculation 141 ml/min; Estimated Glomerular Filt Rate > 60; Glucose 90 mg/dL (65-110); Potassium 3.3 mmol/L (3.4-5.0); Sodium 135 mmol/L (137-145)
[2023-05-29 07:34] LABS: Total Cells Counted 100
[2023-05-29 07:35] LABS: Band Neutrophils Percent 2 % (0-6); Lymphocytes Absolute Manual 2.91 K/mm3 (1.1-4.5); Lymphocytes Percent Manual 16 % (18-44); Metamyelocytes Percent 4 %; Monocytes Absolute Manual 1.09 K/mm3 (0.1-0.90); Monocytes Percent Manual 6 % (3-9); Myelocytes Percent 1 %; Neutrophils Absolute Manual 13.28 K/mm3 (1.7-7.2); Neutrophils Percent Manual 71 % (46-73); Platelet Estimate Adequate (Adequate); Schistocytes None Seen (NORMAL)
[2023-05-29 08:26] LABS: Glucose Point of Care 92 mg/dl (65-105)
[2023-05-29] MEDS: POTASSIUM CHLORIDE 20 MEQ ER TABLET 40 MEQ PO (08:28)
[2023-05-29] MEDS: predniSONE 20 MG TABLET 60 MG PO (08:29)
[2023-05-29] MEDS: VENLAFAXINE HCL XR 75 MG CAP.ER.24H 150 MG PO (08:29)
[2023-05-29] MEDS: lisinopriL 20 MG TABLET PO (08:29)
[2023-05-29] MEDS: ASPIRIN 81 MG ENTERIC TABLET PO (08:30)
[2023-05-29] MEDS: SULFAMETHOXAZOLE/TRIMETHOPRIM 800/160 MG DS TABLET 2 TAB PO (08:30)
[2023-05-29] MEDS: amLODIPine BESYLATE 2.5 MG TABLET PO (08:30)
[2023-05-29] MEDS: LORATADINE 10 MG TABLET PO (08:30)
[2023-05-29 09:41] LABS: Glucose Point of Care 148 mg/dl (65-105)
[2023-05-29 11:30] LABS: Glucose Point of Care 214 mg/dl (65-105)
--- NOTE | 2023-05-29 11:56 | PM.DS ---
DS: Admitting Diagnosis Discharge Date 05/29/2023 Admitting Diagnosis Cellulitis, diabetes mellitus insulin-dependent diabetes uncontrolled, hypertension, JEREMY on CPAP, hyponatremia, dehydration DS: Discharge Diagnosis Discharge Diagnosis (1) Sepsis: Onset Date: ~05/25/23 Code(s): A41.9 - Sepsis, unspecified organism Status: Acute (2) Vasculitis: Code(s): I77.6 - Arteritis, unspecified Status: Acute (3) Diabetes mellitus, insulin dependent (IDDM), uncontrolled: Status: Acute (4) Hypertension: Qualifiers: Hypertension type: primary hypertension Qualified Code(s): I10 - Essential (primary) hypertension Code(s): I10 - Essential (primary) hypertension Status: Acute (5) JEREMY on CPAP: Code(s): G47.33 - Obstructive sleep apnea (adult) (pediatric) Status: Acute Assessment and Plan: 05/25/23: (copied from chart) Patient plans on bring in home CPAP unit. Encourage compliance. 05/26/23: Patient will use home CPAP no change in current treatment plan No concerns (6) Hyponatremia: Code(s): E87.1 - Hypo-osmolality and hyponatremia Status: Acute (7) Dehydration: Code(s): E86.0 - Dehydration Status: Acute (8) Cellulitis: Qualifiers: Site of cellulitis: extremity Site of cellulitis of extremity: lower extremity Laterality: right Qualified Code(s): L03.115 - Cellulitis of right lower limb Code(s): L03.90 - Cellulitis, unspecified Status: Acute DS: Summary Hospital Course Reason for hospitalization: Patient admitted for presumed right lower extremity cellulitis Hospital Course: Patient was admitted for presumed right lower extremity cellulitis that was sudden onset prior to patient arrival. The erythema was extensive right lower extremity from the knee to the ankle and circumferential. There was an area excoriation presumed to be the nidus for cellulitic extension. Patient was admitted on IV antibiotics where she later spiked a fever and met sepsis criteria. Patient continued on IV antibiotics for several days without even minor improvement in location erythema and a continued darkening the erythematous tissue and loss of capillary refill in such tissue. Venous Doppler was negative for blood clot. The appearance of the erythema area now most consistent with vasculitis. Antibiotics changed to oral Bactrim (concern for toxoplasmosis/cat scratch fever by previous provider) and patient started on moderate burst of prednisone. After initiating prednisone patient had improvement in swelling improvement in erythema, improvement in sodium levels and patient feeling much better. Patient was kept overnight last night to make sure sodium stabilized and that she continued to improve. Today there was a marked improvement in erythema around the ankle as well as below the knee. Patient was noted to be hypertensive throughout the entire hospital stay. She was initiated on low-dose amlodipine as an additional blood pressure medication which we will continue on discharge. Patient informed lower extremity swelling as the most common side effect. Follow-up with primary care strongly emphasized as well as encouragement rheumatology and taking daily pictures her leg as it improves. Status at Discharge Cognitive/behavioral status at discharge: Awake alert oriented and very pleasant Functional status at discharge: independent ambulation Overall status at discharge: patient is back to baseline Time Spent with Patient Time attestation: Total time spent providing and/or coordinating discharge services: 40 minutes Time spent: Greater than 30 minutes Exam Narrative: General: Well nourished female, obese, in no acute distress Eyes: PERRLA, EOMI, Sclera clear Neck: supple, no JVD, trachea midline Respiratory: lungs clear to auscultation bilaterally, no adventitious lung sounds Cardiac: Minimally tachycardic, norm
[2023-05-29] MEDS: INSULIN ASPART (*BKC) 100 UNITS/ML SUB-Q (12:45)
[2023-05-29 19:35] LABS: Toxoplasma IgG Antibody <7.20 IU/mL (<7.20); Toxoplasma IgM Antibody <8.00 AU/mL (<8.00)
[2023-06-01 19:57] LABS: Osmolality, Urine 785 mOsm/kg (50-1200)
[2023-06-02 13:29] LABS: Chloride Rand Ur 68 mmol/L (32-290); Chloride/Creatinine Rand Ur 55 (38-318); Creatinine Random Urine 124 mg/dL (20-275)
--- NOTE | 2023-06-04 07:00 | PC.NURSE ---
Blood cx from 05/29 are negative.
--- NOTE | 2023-06-17 07:22 | PC.NURSE ---
Faxed referral to [facility] per pt request. Vu Jacobson APRN agrees with referral.
== END 2023-05-29 13:45 | disposition home or self-care (01) | DRG 872 ==
LOC: ANHED 13:25 → ANH3MEDSUR 14:57
PROVIDERS: Nurse Practitioner Acute Care; Admitting Provider Chiropractor; Emergency Provider Emergency Medicine; PCP Internal Medicine; Visit Provider Nurse Practitioner
DX: A41.9 Sepsis, unspecified organism (principal); L03.115 Cellulitis of right lower limb; E87.1 Hypo-osmolality and hyponatremia; Z68.42 Body mass index [BMI] 45.0-49.9, adult; S80.811A Abrasion, right lower leg, initial encounter; W55.03XA Scratched by cat, initial encounter; I77.6 Arteritis, unspecified; E11.9 Type 2 diabetes mellitus without complications; G47.33 Obstructive sleep apnea (adult) (pediatric); I10 Essential (primary) hypertension; E86.0 Dehydration; E66.9 Obesity, unspecified; E78.00 Pure hypercholesterolemia, unspecified; M17.11 Unilateral primary osteoarthritis, right knee; Z20.822 Contact with and (suspected) exposure to COVID-19
CPT/HCPCS: 36415; 71046; 73590; 80053; 80069; 81001; 82436; 82570; 82948; 83036; 83605; 83735; 83930; 83935; 84145; 84300; 85025; 85610; 85730; 86140; 86777; 87040; 87086; 87088; 87637; 93970; 96365; 96372; 96374; 99285; A9270; G0378; J0295; J0360; J0690; J1650; J1815; J3370; J7030; J7512

== ENCOUNTER 2023-08-09 22:49 | Observation (INO) | payer OTHER, SELFPAY ==
--- NOTE | ~2023-08-09 | XR_ITS ---
Clinical Indication: Cough PA and lateral views of the chest: Comparison: 05/25/2023 Findings: The lungs are clear, without evidence of focal consolidation or pleural effusion. Cardiome diastinal silhouette is within normal limits. Bones and soft tissues are unremarkable. Impression: Normal chest. Reviewed, dictated and finalized at location . [employer] Impression: Normal chest.
--- NOTE | ~2023-08-09 | CT_ITS ---
Clinical Indication: Shortness of breath, chest pain CT Scan of the Chest with Contrast: Technique: Contiguous sections were acquired throughout the chest after intravenous administration of 100 cc of Omnipaque 350. Dose reduction technique was used on this scan by utilizing automated expos ure control and iterative reconstruction technique. The dose-length product (DLP) was 1006.59 mGy-cm. Findings: There is no evidence of any significant mediastinal, hilar or axillary lymphadenopathy. There is no f illing defect in the pulmonary arterial tree to suggest pulmonary embolus. There is no evidence of ao rtic dissection or aneurysm. There is no evidence of pleural or pericardial effusion. There is focal airspace consolidation in the lingula, most likely focal pneumonia. Images through the upper abdomen reveal no abnormalities. Impression: No evidence of pulmonary embolus, aortic dissection, or aortic aneurysm. Probable focal lingular pneumonia. Reviewed, dictated and finalized at [facility]. [employer] Impression: No evidence of pulmonary embolus, aortic dissection, or aortic aneurysm. Probable focal lingular pneumonia.
[2023-08-09 23:08] VITALS: BP 105/80; PULSE 120; RESP 18; TEMP 36.8; O2SAT 97
--- NOTE | 2023-08-09 23:15 | ECG_ITS ---
Measurements Intervals [place] Rate: 118 P: 48 MA: 128 QRS: 5 QRSD: 94 T: 89 QT: 310 QTc: 435 Interpretive Statements SINUS TACHYCARDIA DELAYED PRECORDIAL R/S TRANSITION NONSPECIFIC ST & T-WAVE ABNORMALITY- HIGH LATERAL LEADS ABNORMAL ECG NO PREVIOUS ECG AVAILABLE FOR COMPARISON Electronically Signed On 08-10-2023 6:57:59 CLINICAL PSYCHOLOGIST by Cordell So D.O.
[2023-08-09 23:41] LABS: Basophils Percent Auto 0.4 % (0.2-1.2); Eosinophils Percent Auto 0.2 % (0-4.4); Hematocrit 40.1 % (37.0-47.0); Hemoglobin 13.1 g/dL (12.0-15.0); Immature Granulocyte Absolute 0.07 K/mm3 (0.00-0.031); Immature Granulocyte Percent A 0.7 % (0-0.5); Lymphocytes Absolute Auto 1.35 K/mm3 (0.9-3.2); Lymphocytes Percent Auto 12.7 % (18.3-44.2); Mean Corpuscular HGB Conc 32.7 g/dl (32-36); Mean Corpuscular Hemoglobin 28.6 pg (26-34); Mean Corpuscular Volume 87.6 fl (80-100); Mean Platelet Volume 10.1 fl (7.4-10.4); Monocytes Absolute Auto 0.7 K/mm3 (0.1-0.6); Monocytes Percent Auto 6.3 % (2.6-8.5); Neutrophils Absolute Auto 8.5 K/mm3 (1.3-6.7); Neutrophils Percent Auto 79.7 % (45.5-73.1); Platelet Count Result 266 k/mm3 (150-375); Red Blood Count 4.58 M/mm3 (4.2-5.4); White Blood Count 10.7 K/mm3 (4.5-10.0)
[2023-08-10] VITALS (21 sets, daily range): BP systolic 131–167; BP diastolic 73–97; PULSE 98–122; RESP 10–20; TEMP 36.4–37.1; O2SAT 93–100; BMI 48.5
[2023-08-10 00:01] LABS: Alanine Aminotransferase 46 U/L (6-35); Albumin Level 3.8 g/dL (3.5-5.1); Alkaline Phosphatase 112 U/L (38-126); Anion Gap 11 mmol/L (8-16); Aspartate Amino Transferase 26 U/L (14-36); Bilirubin,Total 0.9 mg/dL (0.2-1.3); Blood Urea Nitrogen 11 mg/dL (7-17); Calcium 8.8 mg/dL (8.4-10.2); Carbon Dioxide 25 mmol/L (22-30); Chloride 93 mmol/L (98-107); Estimated CRCL calculation 165 ml/min; Estimated Glomerular Filt Rate > 60; Glucose 557 mg/dL (65-110); Potassium 3.7 mmol/L (3.4-5.0); Sodium 129 mmol/L (137-145)
[2023-08-10 00:12] LABS: Glucose Point of Care 497 mg/dl (65-105)
[2023-08-10 00:16] LABS: Influenza A QL RT-PCR Negative (Negative); Influenza B QL RT-PCR Negative (Negative); RSV RNA, RT-PCR Negative (Negative); SARS-CoV-2 RNA PCR Positive (Negative)
[2023-08-10 01:18] LABS: Hemoglobin A1C > 14.0 % (<5.7)
[2023-08-10 01:22] LABS: Beta-Hydroxybutyrate/Acetoacetate 0.98 mmol/L (0.02-0.27)
[2023-08-10] MEDS: SODIUM CHLORIDE 0.9% IV 1,000 ML 999 ML IV CONT ×3 (01:45→05:20)
--- NOTE | 2023-08-10 01:48 | ED.SOB ---
HPI - SOB/Dyspnea General Chief Complaint: Shortness of Breath/Dyspnea Stated Complaint: sob, cough, covid positive Time Seen by Provider: 08/10/23 00:38 Source: patient and old records reviewed Mode of arrival: ambulatory Limitations: no limitations History of Present Illness HPI Narrative: Patient is a 48-year-old female who presents the ED with report of shortness of breath. Patient reports she has had ongoing URI symptoms since the beginning of the year. She tested positive for COVID-19 Thursday. She is vaccinated for COVID. Over the last 1-2 days, patient has had increased cough, increased difficulty breathing, chest pain, pain with taking deep breath. She also noted subjective wheezing and chest tightness. Denies fevers, abdominal pain, nausea, vomiting. She has had adequate p.o. intake. Denies new pain or swelling in lower extremities. States she has been dealing with a recurrent cellulitis/possible vasculitis in her right lower extremity for several month. Denies previous history of blood clots. Related Data Home Medications Medication Instructions Recorded Confirmed aspirin 81 mg tablet 81 mg PO DAILY 10/15/20 08/10/23 atorvastatin 20 mg tablet 20 mg PO HS 10/15/20 08/10/23 lisinopril 10 mg tablet 20 mg PO DAILY 10/15/20 08/10/23 loratadine 10 mg tablet (Claritin) 10 mg PO DAILY 10/15/20 08/10/23 montelukast 10 mg tablet 10 mg PO HS 10/15/20 08/10/23 insulin glargine-yfgn 100 unit/mL 25 unit subcut BID 05/25/23 08/10/23 (3 mL) subcutaneous pen (Semglee (insulin glargine-yfgn) Pen) insulin lispro-aabc 100 unit/mL 10 unit subcut HS 05/25/23 08/10/23 subcutaneous pen (Lyumjev KwikPen U-100 Insulin) tirzepatide 5 mg/0.5 mL 5 mg subcut WEEKLY 05/25/23 08/10/23 subcutaneous pen injector (Stephan) venlafaxine 150 mg 150 mg PO DAILY 05/25/23 08/10/23 capsule,extended release 24 hr albuterol sulfate 2.5 mg/3 mL 2.5 mg inhalation DAILY PRN 08/10/23 08/10/23 (0.083 %) solution for nebulization Shortness Of Breath cetirizine 10 mg tablet (All Day 10 mg PO DAILY 08/10/23 08/10/23 Allergy (cetirizine)) ergocalciferol (vitamin D2) 50,000 unit PO DAILY 08/10/23 08/10/23 fluticasone propionate 50 1 spray intranasal DAILY 08/10/23 08/10/23 mcg/actuation nasal spray,suspension mycophenolate mofetil 500 mg tablet 800 mg PO Q12H 08/10/23 08/10/23 prednisone 20 mg tablet 40 mg PO DAILY@0800 08/10/23 08/10/23 Allergies Allergy/AdvReac Type Severity Reaction Status Date / Time amoxicillin AdvReac Unknown Nausea and Verified 08/10/23 09:57 Vomiting glipizide AdvReac Unknown NAUSEA AND Verified 08/10/23 09:57 VOMITING hydrocodone AdvReac Unknown Nausea and Verified 08/10/23 09:57 Vomiting metformin AdvReac Unknown Nausea and Verified 08/10/23 09:57 Vomiting Review of Systems Review of Systems: CONSTITUTIONAL: Denies fever, chills, or sweats. ENT: Denies rhinorrhea, congestion, sore throat. CARDIOVASCULAR: See HPI. RESPIRATORY: See HPI. GASTROINTESTINAL: Denies abdominal pain, nausea, vomiting, or diarrhea. GENITOURINARY: Denies dysuria or hematuria. MUSCULOSKELETAL: See HPI. NEUROLOGIC: Denies headache, dizziness, numbness, or weakness. All systems reviewed & are unremarkable except as noted in HPI and below PMFSH Past Medical History Medical History Depression Diabetes Hypercholesterolemia Hypertension JEREMY on CPAP Surgical History Surgical History H/O arthroscopy H/O myomectomy Family History Family History Mother Myocardial infarction Diabetes mellitus Social History Social History Smoking status: Never smoker Alcohol intake: current Drinks per week: 1 Substance use: never Substance use type: does not use Do
[2023-08-10] MEDS: INSULIN HUMAN REGULAR (*BKC) 100 UNITS/ML IV PUSH ×2 (02:22→04:06)
[2023-08-10 02:33] LABS: Glucose Point of Care 466 mg/dl (65-105)
[2023-08-10 02:54] LABS: Appearance Urine Clear (Clear); Bilirubin Urine Negative (Negative); Blood Urine Negative (Negative); Color Urine Yellow (Yellow); Glucose Urine UA 3+ mg/dL (Negative); Ketones Urine 2+ mg/dL (Negative); Leukocyte Esterase Ur Negative LEU/UL (Negative); Nitrate Urine Negative (Negative); Protein Urine Negative (Negative); Urobilinogen Urine 0.2 mg/dL (<2.0); pH Urine 5.5 (5.0-9.0)
[2023-08-10 02:55] LABS: Add Urine Microscopic? NO; Specific Grav Ur 1.048 (1.001-1.035)
[2023-08-10 03:08] LABS: Magnesium 1.7 mg/dL (1.6-2.3)
[2023-08-10 03:20] LABS: NT Pro B Type Natriuretic Pept 29 pg/mL (19.9-100); Troponin I < 0.012 ng/mL (0.000-0.034)
[2023-08-10 03:25] LABS: INR 0.9; Partial Thromboplastin Time 27.3 SECONDS (22.3-36.8); Prothrombin Time 12.4 Seconds (11.1-14.7)
[2023-08-10 04:14] LABS: Glucose Point of Care 363 mg/dl (65-105)
[2023-08-10] MEDS: AZITHROMYCIN 500 MG/NS 250 ML 500 MG/250 ML BAG 250 MG IVPB (04:29)
[2023-08-10] MEDS: METOPROLOL TARTRATE INJ 5 MG/5 ML VIAL IV PUSH (05:02)
[2023-08-10] MEDS: INSULIN GLARGINE (*BKC) 100 UNITS/ML 25 UNITS SUB-Q (05:20)
[2023-08-10] MEDS: ACETAMINOPHEN 325 MG TABLET 650 MG PO ×3 (06:56→22:05)
[2023-08-10 08:34] LABS: Glucose Point of Care 337 mg/dl (65-105)
--- NOTE | 2023-08-10 09:13 | PM.IMHP ---
H&P: HPI History of Present Illness Date/Time: 08/10/23 09:13 Chief Complaint: cough, SOB Narrative: This is a 48-year-old female with past medical history of uncontrolled diabetes, hypertension, hyperlipidemia and depression the presents to the ED due to progressive cough and worsening shortness of breath. Patient states that she had been with friends and 1 of their friends stated that he tested positive for COVID and she soon started feeling ill and tested positive on 08/04/2023. Since then she has had uncontrollable cough and sinus congestion. She denies any fever, nausea, vomiting, diarrhea and chest pain. She does have some sputum production but not much. When she arrived to the ED she was found to have a O2 saturation of 98 on room air. Since arrival to the ED she has remained tachycardia between 100 and 120. Her sugars on arrival for 557 and she was given 10 units of regular insulin and fluids were started.?Blood sugar still elevated into upper 300s. Patient states that she takes 30 long-acting insulin in the morning and 30 at night. She does not slide herself but she is also Mounjaro once weekly and Lyumjev 10 units HS. patient states that she is compliant with her blood sugars after further questioning she states that she has been on 40 mg of prednisone since May that has been prescribed by her lithographic etcher for possible vasculitis. The vasculitis has improved but her sugars have been out of control. She is not test her sugars as she should due to state that it makes her depressed testing them. she also sees a ob gyn. Her last A1c was 9.9 and repeat was greater than 14. patient admitted for better control of her sugars and symptomatic control of COVID. [facility] Past Medical History Medical History Depression Diabetes Hypercholesterolemia Hypertension JEREMY on CPAP Surgical History Surgical History H/O arthroscopy H/O myomectomy Family History Family History Mother Myocardial infarction Diabetes mellitus Social History Social History Smoking status: Never smoker Alcohol intake: current Drinks per week: 1 Substance use: never Substance use type: does not use Lack of Transportation: No Lack of Food: Never True Current Housing: I Have Housing Concerned About Future Housing: No Difficulty Paying Gas/Electric Bills: No Difficulty Paying for Meds: YES Currently Unemployed: No Education: Associate Degree Difficulty w/ Childcare or Family Care: No Spiritual care concerns: No Meds Home Medications and Allergies Home Medications Medication Instructions Recorded Confirmed Type aspirin 81 mg tablet 81 mg PO DAILY 10/15/20 05/25/23 History atorvastatin 20 mg tablet 20 mg PO HS 10/15/20 05/25/23 History lisinopril 10 mg tablet 20 mg PO DAILY 10/15/20 05/25/23 History loratadine 10 mg tablet (Claritin) 10 mg PO DAILY 10/15/20 05/25/23 History montelukast 10 mg tablet 10 mg PO HS 10/15/20 05/25/23 History insulin glargine-yfgn 100 unit/mL 25 unit subcut BID 05/25/23 05/25/23 History (3 mL) subcutaneous pen (Semglee (insulin glargine-yfgn) Pen) insulin lispro-aabc 100 unit/mL 10 unit subcut HS 05/25/23 05/25/23 History subcutaneous pen (Lyumjev KwikPen U-100 Insulin) tirzepatide 5 mg/0.5 mL 5 mg subcut WEEKLY 05/25/23 05/25/23 History subcutaneous pen injector (Stephan) venlafaxine 150 mg 150 mg PO DAILY 05/25/23 05/25/23 History capsule,extended release 24 hr acetaminophen 500 mg tablet 1,000 mg PO Q6H PRN Pain Or Fever 05/29/23 Rx #0 tabs amlodipine 2.5 mg tablet 2.5 mg PO QAM #90 tabs 05/29/23 Rx prednisone 20 mg tablet 60 mg PO DAILY@0800 4 days #12 tabs 05/29/23 Rx sulfamethoxazole 800 2 tab PO Q12HR 5
[2023-08-10] MEDS: INSULIN ASPART (*BKC) 100 UNITS/ML SUB-Q ×3 (09:32→17:12)
[2023-08-10] MEDS: REMDESIVIR 200 MG/NS 250 ML 200 MG/250 ML BAG 250 MG IVPB (09:34)
--- NOTE | 2023-08-10 10:37 | PC.NURSE ---
Dietary called inquiring about last 2 phone request for a breakfast tray for pt. Per dietary they will send a new tray
--- NOTE | 2023-08-10 10:38 | PC.NURSE ---
Noted bilateral swelling, redness to bilateral lower extremities. Pt states she has had treatment for vasculitis since May 2023. Pedal pulse palpable, no open areas noted. Pt denies pain. Hospitalist aware.
[2023-08-10 11:37] LABS: Glucose Point of Care 307 mg/dl (65-105)
[2023-08-10] MEDS: SODIUM CHLORIDE 0.9% IV 1,000 ML 100 ML IV CONT ×2 (11:55→22:06)
[2023-08-10 13:51] LABS: Glucose Point of Care 268 mg/dl (65-105)
[2023-08-10 18:11] LABS: Glucose Point of Care 257 mg/dl (65-105)
--- NOTE | 2023-08-10 19:28 | ADMGEN ---
This patient, Camila Huitron, was admitted to Medical Room 244-. Patient/family oriented to hospital policies and general routines including ID bracelet, bed and alarms, visiting hours, pain management, procedures, bathroom and other care routines, personal items, smoking policy, room service/diet, and visiting hours. Information on how to activate the Rapid Response Team has been discussed. Patient/Family are encouraged to report perceived risks to care and to ask questions if they do not understand what they are told or what they should do.
[2023-08-10] MEDS: INSULIN GLARGINE (*BKC) 100 UNITS/ML 30 UNITS SUB-Q (20:24)
[2023-08-10 20:32] LABS: Glucose Point of Care 273 mg/dl (65-105)
[2023-08-11] VITALS (7 sets, daily range): BP systolic 140–151; BP diastolic 78–84; PULSE 100–119; RESP 18; TEMP 36.9–37.1; O2SAT 97–98; BMI 48.4
[2023-08-11] MEDS: AZITHROMYCIN 500 MG/NS 250 ML 500 MG/250 ML BAG 250 MG IVPB (04:48)
--- NOTE | 2023-08-11 05:35 | PC.NURSE ---
PATIENT IS C/O SEVERE IV SITE PAIN WITH AZITHROMYCIN INFUSION. HER NURSE DEIDRE FLUSHED IV WITHOUT DIFFICULTY, OBTAINED EXCELLENT BLOOD RETURN. SITE IS CLEAR OF EDEMA OR REDNESS. HE ALSO SLOWED RATE OF ABX. SHE IS CRYING WITH C/O OF INCREASING PAIN, EVEN WITH NO FLUIDS OR MEDS INFUSING. THIS FIBER OPTICS SUPERVISOR THEN WENT IN, FLUSHED IV EASILY, OBTAINED GOOD BLOOD RETURN, AND INSPECTED SITE THAT WAS FREE OF REDNESS OR EDEMA. PATIENT STATES TAKE IT OUT OR KNOCK ME OUT . HAS INCREASING SOBBING. DISCUSSED WITH DEIDRE AND DR. KEYS, WITH RECOMMENDATION TO HOLD PRESENTLY UNTIL DAY TEAM ARRIVES, MAY BE ABLE TO SWITCH TO ORAL ABX. APPROACHED ROOM, PATIENT QUITE, FIBER OPT[employer] SUPERVISOR ENTERED ROOM, PATIENT BEGAN SOBBING LOUDLY AND REFUSES TO LISTEN TO THIS NURSE, TALKING OVER FIBER OPTICS SUPERVISOR. INSTRUCTED DEIDRE TO REMOVE IV PER PATIENT REQUEST.
--- NOTE | 2023-08-11 06:00 | ECHO_ITS ---
Patient Info Name: Camila Huitron Age: 48 years : 1975 Gender: Female Ht: 65 in Wt: 300 lbs BSA: 2.58 m2 HR: 106 bpm BP: 151 / 84 mmHg Heart Rhythm: Tachycardia Technical Quality: Poor Exam Date: 08/11/2023 9:02 AM Exam Location: Echo Lab Patient Status: Inpatient Admit Date: 08/10/2023 Staff Ordering Physician: Josette Morillo PA-C Crew Leader Gluing: Simone Gannon RDCS Attending Provider: Marj Hernández DO Referring Physician: Ilia LARKIN; Exam Type: CA echo dop color flow w con Study Info Indications - pulmonary HTN Complete two-dimensional, color flow and Doppler transthoracic echocardiogram is performed with contrast to opacify the left ventricle and to improve the deliniation of the left ventricle endocardial borders. Contrast/Agitated Saline Contrast/Ag. Saline: Definity Amount: 3.00 ml Reason for Poor Study: poor echocardiographic windows Summary 1. Technically difficult study with limited views. 2. Left ventricular chamber dimension is normal. 3. Left ventricular systolic function is hyperdynamic, estimated at >70%. 4. The left ventricular diastolic function is grade I diastolic dysfunction. 5. Right ventricular systolic function is normal. 6. There is trace mitral valve regurgitation. 7. There is trace tricuspid valve regurgitation. Left Ventricle Left ventricular chamber dimension is normal. Left ventricular systolic function is hyperdynamic, estimated at >70%. The left ventricular diastolic function is grade I diastolic dysfunction. Right Ventricle Right ventricular chamber dimension is normal. Right ventricular systolic function is normal. Left Atria Left atrial chamber dimension is normal. Right Atria Right atrial chamber dimension is normal. Atrial Septum Intact interatrial septum visualized by color flow imaging. Aortic Valve The aortic valve is not well visualized. There is no aortic valve stenosis. There is no aortic valve regurgitation. Pulmonic Valve The pulmonic valve is not well visualized. Mitral Valve There is trace mitral valve regurgitation. Tricuspid Valve There is trace tricuspid valve regurgitation. Pericardium/Pleural There is no pericardial effusion. Inferior Vena Cava Inferior vena cava is not well visualized. Aorta The aortic root size at the sinus of Valsalva is normal. Left Ventricular Outflow Tract Name Value Normal LVOT 2D LVOT Diameter 2.01 cm LVOT Doppler LVOT Peak Gradient 4 mmHg LVOT Mean Gradient 2 mmHg LVOT VTI 18.85 cm LVOT VTI/AV VTI Ratio 0.83 LVOT Stroke Volume 59.59 ml LVOT CO 5.63 l/min LVOT CI 2.18 L/min/m2 Pulmonic Valve Name Value Normal RVOT Doppler RVOT Peak Gradient 3 mmHg
--- NOTE | 2023-08-11 06:01 | PC.NURSE ---
PATIENT CONTINUING TO BE BELLIGERENT WITH NURSING STAFF AND SUPERVISOR PATCHING STAFF. SHE IS SOBBING IN THE ROOM SCREAMING AT SUPERVISOR PATCHING STATING SHE IS HURTING FROM HER IV SITE THAT HAS BEEN FLUSHED MULTIPLE TIMES SHOWING GREAT BLOOD RETURN. SHE INSISTED RN TAKE OUT THIS IV AND THEN WAS COMPLIANT WITH PHLEBOTOMISTS.
--- NOTE | 2023-08-11 06:31 | PC.NURSE ---
PATIENTS RELAYS BETTER NUMBER TO BE REACHED AT IS [phone]
[2023-08-11 08:33] LABS: Glucose Point of Care 221 mg/dl (65-105)
[2023-08-11] MEDS: PERFLUTREN LIPID MICROSPHERES 1.5 ML VIAL DILUTED TO 10 ML TOTAL VOLUME IV PUSH (09:15)
[2023-08-11] MEDS: INSULIN ASPART (*BKC) 100 UNITS/ML SUB-Q ×2 (10:16→12:44)
[2023-08-11] MEDS: amLODIPine BESYLATE 2.5 MG TABLET PO (10:17)
[2023-08-11] MEDS: LORATADINE 10 MG TABLET PO (10:17)
[2023-08-11] MEDS: VENLAFAXINE HCL XR 75 MG CAP.ER.24H 150 MG PO (10:17)
[2023-08-11] MEDS: ASPIRIN 81 MG ENTERIC TABLET PO (10:17)
[2023-08-11] MEDS: predniSONE 20 MG TABLET 40 MG PO (10:18)
[2023-08-11] MEDS: FLUTICASONE PROPIONATE 0.05% NA SPR 16 GM BTL (*BKC) 1 SPRAY NASAL (10:18)
[2023-08-11] MEDS: lisinopriL 20 MG TABLET PO (10:18)
[2023-08-11] MEDS: INSULIN GLARGINE (*BKC) 100 UNITS/ML 30 UNITS SUB-Q (10:19)
--- NOTE | 2023-08-11 11:26 | IVDEFINITY ---
Prior to administration of IV Definity the patient was educated on the risks and benefits of the imaging enhancing agent including potential adverse side effects. The patient verbalized understanding. Allergies were verified. No exclusion criteria were identified and at least one of the following inclusion criteria were met: 1) physician request, 2) patient technically difficult to image (per the [place] [employer]ocardi[employer] guidelines of two or more segments not discernable within the apical view), or 3) questionable left ventricular function. ?
--- NOTE | 2023-08-11 11:36 | PM.DS ---
DS: Admitting Diagnosis Discharge Date 08/11/23 Admitting Diagnosis COVID positive, uncontrolled diabetes DS: Discharge Diagnosis Discharge Diagnosis (1) COVID-19: Code(s): U07.1 - COVID-19 Status: Acute Assessment and Plan: Patient tested positive for COVID on 08/04/2023. Patient requiring oxygen thus will not start on remdesivir or dexamethasone. Cough suppressant as needed. Contact isolation initiated Inhalers p.r.n. Labs have remained stable (2) Pneumonia: Qualifiers: Laterality: unspecified laterality Lung location: unspecified part of lung Pneumonia type: due to unspecified organism Qualified Code(s): J18.9 - Pneumonia, unspecified organism Code(s): J18.9 - Pneumonia, unspecified organism Status: Acute Assessment and Plan: CT of the chest showing focal lingular pneumonia. Patient started on Rocephin and azithromycin. Inhalers p.r.n. Not requiring oxygen at this time (3) Uncontrolled diabetes mellitus: Qualifiers: Diabetes mellitus type: type 2 Glycemic state: with hyperglycemia Qualified Code(s): E11.65 - Type 2 diabetes mellitus with hyperglycemia Status: Acute Assessment and Plan: Patient with history of uncontrolled diabetes. A1c greater than 14 at this time. Lantus 30 mg b.i.d. High-dose sliding scale Patient on prednisone and this is increasing her sugars. Patient does not check sugars regularly. (4) Vasculitis: Code(s): I77.6 - Arteritis, unspecified Status: Acute Assessment and Plan: Patient sees Rheumatology as an outpatient. Currently on prednisone daily. (5) Hypertension: Qualifiers: Hypertension type: unspecified Qualified Code(s): I10 - Essential (primary) hypertension Code(s): I10 - Essential (primary) hypertension Status: Acute Assessment and Plan: restart home medication once med list is reconciled DS: Summary Hospital Course Hospital Course: This is a 48-year-old female with past medical history of? uncontrolled diabetes, hypertension, hyperlipidemia and depression the presents to the ED due to progressive cough and worsening shortness of breath.? Patient states that she had been with friends and 1 of their friends stated that he tested positive for COVID and she soon started feeling ill and tested positive on 08/04/2023.? Since then she has had uncontrollable cough and sinus congestion.? She denies any fever, nausea, vomiting, diarrhea and chest pain.? She does have some sputum production but not much.? When she arrived to the ED she was found to have a O2 saturation of 98 on room air.? Since arrival to the ED she has remained tachycardia between 100 and 120.? Her sugars on arrival for 557 and she was given 10 units of regular insulin and fluids were started.?Blood sugar still elevated into upper 300s.? Patient states that she takes 30 long-acting insulin in the morning and 30 at night.? She does not slide herself but she is also Mounjaro once weekly and Lyumjev 10 units HS.? patient states that she is compliant with her blood sugars after further questioning she states that she has been on 40 mg of prednisone since May that has been prescribed by her liquor blender for possible vasculitis.? The vasculitis has improved but her sugars have been out of control.? She is not test her sugars as she should due to state that it makes her depressed testing them. she also sees a mounted police officer.? Her last A1c was 9.9 and repeat was greater than 14. patient admitted for better control of her sugars and symptomatic control of COVID. CT of the chest showed focal lingular pneumonia and she was started on Rocephin and azithromycin. Patient not requiring any further oxygen supplementation. Patient was transition to p.o. antibiotics. It was advised that the patient speak with her liquor blender about discontinuing/tapering her prednisone due to t
[2023-08-11 12:17] LABS: Glucose Point of Care 314 mg/dl (65-105)
[2023-08-11] MEDS: AZITHROMYCIN 250 MG TABLET 500 MG PO (12:44)
[2023-08-11 17:01] LABS: Glucose Point of Care 387 mg/dl (65-105)
--- NOTE | 2023-08-12 10:40 | PC.NURSE ---
ECHO report shown to Gabby Costa PA-C.
== END 2023-08-11 16:55 | disposition home or self-care (01) ==
LOC: ANHED 08-10 04:44 → ANH3MEDSUR 08-10 05:51 → ANH2MED 08-10 16:26
PROVIDERS: Emergency Medicine; Admitting Provider Internal Medicine; Emergency Provider Physician Assistant; PCP Internal Medicine; Visit Provider Internal Medicine
DX: U07.1 COVID-19 (principal); J18.9 Pneumonia, unspecified organism; E11.65 Type 2 diabetes mellitus with hyperglycemia; I77.6 Arteritis, unspecified; I11.9 Hypertensive heart disease without heart failure; E87.1 Hypo-osmolality and hyponatremia; I27.20 Pulmonary hypertension, unspecified; F32.A Depression, unspecified; E78.00 Pure hypercholesterolemia, unspecified; L03.115 Cellulitis of right lower limb; K76.0 Fatty (change of) liver, not elsewhere classified; R94.31 Abnormal electrocardiogram [ECG] [EKG]; G47.33 Obstructive sleep apnea (adult) (pediatric); Z99.89 Dependence on other enabling machines and devices; F10.90 Alcohol use, unspecified, uncomplicated; Z79.82 Long term (current) use of aspirin; Z79.4 Long term (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; Z79.51 Long term (current) use of inhaled steroids; Z79.52 Long term (current) use of 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s; Z79.899 Other long term (current) drug therapy
CPT/HCPCS: 36415; 71046; 71275; 80053; 81003; 82010; 82948; 83036; 83735; 83880; 84484; 85025; 85610; 85730; 87637; 93005; 96361; 96365; 96366; 96367; 96375; 96376; 99285; A9270; C8929; G0378; J0248; J0456; J0696; J1815; J7030; J7512; Q9957; Q9967

== ENCOUNTER 2023-08-18 20:20 | Emergency (ER) | payer OTHER, SELFPAY ==
--- NOTE | ~2023-08-18 | XR_ITS ---
EXAMINATION: XR chest 2V DATE: 08/18/2023 21:01 INDICATION: Productive cough. TECHNIQUE: Frontal and lateral views of the chest were obtained. COMPARISON: Chest 2 views 08/10/2023, chest CT 08/10/2023 FINDINGS: There are airspace opacities in lingula. No pleural effusion or pneumothorax. The heart siz e is normal. IMPRESSION: 1. Airspace opacities in lingula, consistent with atelectasis versus pneumonia. Reviewed, dictated and finalized at location E. ICAL APPEALS REVIEWER
[2023-08-18 20:41] VITALS: BP 166/113; PULSE 118; RESP 20; TEMP 36.7; O2SAT 97
--- NOTE | 2023-08-18 23:22 | ECG_ITS ---
Measurements Intervals Tamiment Rate: 113 P: 29 WV: 108 QRS: 7 QRSD: 93 T: 66 QT: 335 QTc: 460 Interpretive Statements SINUS TACHYCARDIA WITH SHORT WV INTERVAL NONSPECIFIC ST-T WAVE ABNORMALITY- HIGH LATERAL LEADS ABNORMAL ECG COMPARED TO ECG 08/09/2023 23:23:02 NO SIGNIFICANT CHANGES Electronically Signed On 08-19-2023 6:38:34 SOCIAL WORK LECTURER by Cordell So D.O.
--- NOTE | 2023-08-18 23:43 | ED.URI ---
HPI - URI/Sore Throat General Chief Complaint: Upper Respiratory Infection Stated Complaint: cough Time Seen by Provider: 08/18/23 22:40 Source: patient and old records reviewed Mode of arrival: ambulatory Limitations: no limitations History of Present Illness HPI Narrative: Patient is a 48-year-old female, with past medical history of diabetes, who presents to the ED with report of cough and shortness breath. Patient reports she was recently admitted to the hospital here for pneumonia, COVID-19, hyperglycemia. She received IV antibiotics while inpatient and was discharged on Levaquin and azithromycin. She finished the antibiotics on Thursday, but reports having worsening cough, worsening production of sputum, worsening shortness of breath. States she feels winded with exertion. Reports chest pain with coughing. Denies chest pain at rest. Denies fevers. Denies abdominal pain, nausea, vomiting, hemoptysis, lower extremity pain or swelling. Related Data Home Medications Medication Instructions Recorded Confirmed aspirin 81 mg tablet 81 mg PO DAILY 10/15/20 08/10/23 atorvastatin 20 mg tablet 20 mg PO HS 10/15/20 08/10/23 lisinopril 10 mg tablet 20 mg PO DAILY 10/15/20 08/10/23 loratadine 10 mg tablet (Claritin) 10 mg PO DAILY 10/15/20 08/10/23 montelukast 10 mg tablet 10 mg PO HS 10/15/20 08/10/23 insulin glargine-yfgn 100 unit/mL 25 unit subcut BID 05/25/23 08/10/23 (3 mL) subcutaneous pen (Semglee (insulin glargine-yfgn) Pen) insulin lispro-aabc 100 unit/mL 10 unit subcut HS 05/25/23 08/10/23 subcutaneous pen (Lyumjev KwikPen U-100 Insulin) tirzepatide 5 mg/0.5 mL 5 mg subcut WEEKLY 05/25/23 08/10/23 subcutaneous pen injector (Stephan) venlafaxine 150 mg 150 mg PO DAILY 05/25/23 08/10/23 capsule,extended release 24 hr albuterol sulfate 2.5 mg/3 mL 2.5 mg inhalation DAILY PRN 08/10/23 08/10/23 (0.083 %) solution for nebulization Shortness Of Breath cetirizine 10 mg tablet (All Day 10 mg PO DAILY 08/10/23 08/10/23 Allergy (cetirizine)) ergocalciferol (vitamin D2) 50,000 unit PO DAILY 08/10/23 08/10/23 fluticasone propionate 50 1 spray intranasal DAILY 08/10/23 08/10/23 mcg/actuation nasal spray,suspension mycophenolate mofetil 500 mg tablet 800 mg PO Q12H 08/10/23 08/10/23 prednisone 20 mg tablet 40 mg PO DAILY@0800 08/10/23 08/10/23 Allergies Allergy/AdvReac Type Severity Reaction Status Date / Time amoxicillin AdvReac Unknown Nausea and Verified 08/18/23 20:49 Vomiting glipizide AdvReac Unknown NAUSEA AND Verified 08/18/23 20:49 VOMITING hydrocodone AdvReac Unknown Nausea and Verified 08/18/23 20:49 Vomiting metformin AdvReac Unknown Nausea and Verified 08/18/23 20:49 Vomiting Review of Systems Review of Systems: CONSTITUTIONAL: Denies fever, chills, or sweats. CARDIOVASCULAR: See HPI RESPIRATORY: See HPI GASTROINTESTINAL: Denies abdominal pain, nausea, vomiting, or diarrhea. All systems reviewed & are unremarkable except as noted in HPI and below PMFSH Past Medical History Medical History Depression Diabetes Hypercholesterolemia Hypertension JEREMY on CPAP Surgical History Surgical History H/O arthroscopy H/O myomectomy Family History Family History Mother Myocardial infarction Diabetes mellitus Social History Social History Smoking status: Never smoker Alcohol intake: current Drinks per week: 1 Substance use: never Substance use type: does not use Do You Feel Safe in your Home?: Yes Lack of Transportation: No Lack of Food: Never True Current Housing: I Have Housing Concerned About Future Housing: No Difficulty Paying Gas/Electric Bills: No Difficulty Paying for Meds: YES Currently Une
[2023-08-19 00:03] LABS: Basophils Absolute Auto 0.1 K/mm3 (0.0-0.1); Basophils Percent Auto 0.4 % (0.2-1.2); Eosinophils Percent Auto 0.1 % (0-4.4); Hematocrit 41.8 % (37.0-47.0); Hemoglobin 13.8 g/dL (12.0-15.0); Immature Granulocyte Absolute 0.18 K/mm3 (0.00-0.031); Immature Granulocyte Percent A 1.5 % (0-0.5); Lymphocytes Absolute Auto 1.46 K/mm3 (0.9-3.2); Lymphocytes Percent Auto 12.4 % (18.3-44.2); Mean Corpuscular Hemoglobin 28.5 pg (26-34); Mean Corpuscular Volume 86.2 fl (80-100); Mean Platelet Volume 9.5 fl (7.4-10.4); Monocytes Absolute Auto 0.5 K/mm3 (0.1-0.6); Monocytes Percent Auto 3.9 % (2.6-8.5); Neutrophils Absolute Auto 9.7 K/mm3 (1.3-6.7); Neutrophils Percent Auto 81.7 % (45.5-73.1); Platelet Count Result 427 k/mm3 (150-375); Red Blood Count 4.85 M/mm3 (4.2-5.4); Red Cell Distribution Width 13.5 % (11.5-14.5); White Blood Count 11.8 K/mm3 (4.5-10.0)
[2023-08-19 00:27] LABS: D Dimer 0.33 ug/mL (<0.48); Troponin I < 0.012 ng/mL (0.000-0.034)
[2023-08-19 00:32] LABS: Alanine Aminotransferase 41 U/L (6-35); Albumin Level 4.2 g/dL (3.5-5.1); Alkaline Phosphatase 81 U/L (38-126); Anion Gap 7 mmol/L (8-16); Aspartate Amino Transferase 27 U/L (14-36); Bilirubin,Total 0.7 mg/dL (0.2-1.3); Blood Urea Nitrogen 12 mg/dL (7-17); Calcium 9.4 mg/dL (8.4-10.2); Carbon Dioxide 28 mmol/L (22-30); Chloride 97 mmol/L (98-107); Estimated CRCL calculation 165 ml/min; Estimated Glomerular Filt Rate > 60; Glucose 320 mg/dL (65-110); Potassium 4.2 mmol/L (3.4-5.0); Sodium 132 mmol/L (137-145)
[2023-08-19 01:43] VITALS: BP 158/88; PULSE 121; RESP 18; O2SAT 96
[2023-08-19 02:28] VITALS: O2SAT 100
== END 2023-08-19 02:30 | disposition home or self-care (01) ==
PROVIDERS: Emergency Provider Physician Assistant; PCP Internal Medicine
DX: J40 Bronchitis, not specified as acute or chronic (principal); J18.9 Pneumonia, unspecified organism; E11.9 Type 2 diabetes mellitus without complications; I10 Essential (primary) hypertension
CPT/HCPCS: 36415; 71046; 80053; 84484; 85025; 85380; 93005; 99284

== ENCOUNTER 2024-01-26 07:43 | Emergency (ER) | payer OTHER, SELFPAY ==
[2024-01-26 07:44] VITALS: BP 172/109; PULSE 109; RESP 17; TEMP 36.4; O2SAT 100
[2024-01-26 08:57] VITALS: BP 156/94; PULSE 100; RESP 20; O2SAT 100
[2024-01-26] MEDS: DOXYCYCLINE HYCLATE 100 MG TABLET PO (08:57)
--- NOTE | 2024-01-26 17:33 | ED.EAR ---
HPI - Ear Problem General Chief complaint: Ear Stated complaint: r ear pain Time Seen by Provider: 01/26/24 07:52 History of Present Illness HPI Narrative: 48-year-old female presenting to the emergency department for evaluation of bilateral ear pain. Patient reports symptoms started few days ago. Patient states initially was left and then migrated to the right. Patient also does have symptoms of sinus congestion. Related Data Home Medications Medication Instructions Recorded Confirmed aspirin 81 mg tablet 81 mg PO DAILY 10/15/20 08/10/23 atorvastatin 20 mg tablet 20 mg PO HS 10/15/20 08/10/23 lisinopril 10 mg tablet 20 mg PO DAILY 10/15/20 08/10/23 loratadine 10 mg tablet (Claritin) 10 mg PO DAILY 10/15/20 08/10/23 montelukast 10 mg tablet 10 mg PO HS 10/15/20 08/10/23 insulin glargine-yfgn 100 unit/mL 25 unit subcut BID 05/25/23 08/10/23 (3 mL) subcutaneous pen (Semglee (insulin glargine-yfgn) Pen) insulin lispro-aabc 100 unit/mL 10 unit subcut HS 05/25/23 08/10/23 subcutaneous pen (Lyumjev KwikPen U-100 Insulin) tirzepatide 5 mg/0.5 mL 5 mg subcut WEEKLY 05/25/23 08/10/23 subcutaneous pen injector (Mounjaro) venlafaxine 150 mg 150 mg PO DAILY 05/25/23 08/10/23 capsule,extended release 24 hr albuterol sulfate 2.5 mg/3 mL 2.5 mg inhalation DAILY PRN 08/10/23 08/10/23 (0.083 %) solution for nebulization Shortness Of Breath cetirizine 10 mg tablet (All Day 10 mg PO DAILY 08/10/23 08/10/23 Allergy (cetirizine)) ergocalciferol (vitamin D2) 50,000 unit PO DAILY 08/10/23 08/10/23 fluticasone propionate 50 1 spray intranasal DAILY 08/10/23 08/10/23 mcg/actuation nasal spray,suspension mycophenolate mofetil 500 mg tablet 800 mg PO Q12H 08/10/23 08/10/23 prednisone 20 mg tablet 40 mg PO DAILY@0800 08/10/23 08/10/23 Allergies Allergy/AdvReac Type Severity Reaction Status Date / Time amoxicillin AdvReac Unknown Nausea and Verified 01/26/24 08:38 Vomiting glipizide AdvReac Unknown NAUSEA AND Verified 01/26/24 08:38 VOMITING hydrocodone AdvReac Unknown Nausea and Verified 01/26/24 08:38 Vomiting metformin AdvReac Unknown Nausea and Verified 01/26/24 08:38 Vomiting Review of Systems Review of Systems: All systems reviewed & are unremarkable except as noted in HPI and below PMFSH Past Medical History Medical History Depression Diabetes Hypercholesterolemia Hypertension JEREMY on CPAP Surgical History Surgical History H/O arthroscopy H/O myomectomy Family History Family History Mother Myocardial infarction Diabetes mellitus Social History Social History Smoking status: Never smoker Alcohol intake: current Drinks per week: 1 Substance use: never Substance use type: does not use Do You Feel Safe in your Home?: Yes Lack of Transportation: No Lack of Food: Never True Current Housing: I Have Housing Concerned About Future Housing: No Difficulty Paying Gas/Electric Bills: No Difficulty Paying for Meds: YES Currently Unemployed: No Education: Associate Degree Difficulty w/ Childcare or Family Care: No Spiritual care concerns: No Exam Narrative: APPEARANCE: Well appearing, no pain, no distress, well-nourished. HEAD: normocephalic, atraumatic. EYES: PERRLA/EOMI, conjunctivae clear. NOSE: Normal no drainage EARS: Bilateral otitis media THROAT: Pharynx clear, no exudate. NECK: Supple. No adenopathy, no masses. RESPIRATORY: Airway patent, respirations nonlabored. Clear to auscultation bilaterally, no rales, rhonchi, wheezing. CARDIOVASCULAR: Regular rate and rhythm without murmurs rubs or gallops. ABDOMINAL: Soft, nontender, nondistended, normal bowel sounds MUSCULOSKELETAL: Moves all extremities
== END 2024-01-26 08:59 | disposition home or self-care (01) ==
PROVIDERS: Emergency Provider Emergency Medicine; PCP Internal Medicine
DX: H66.93 Otitis media, unspecified, bilateral (principal); E11.9 Type 2 diabetes mellitus without complications; I10 Essential (primary) hypertension
CPT/HCPCS: 99283; A9270

== ENCOUNTER 2024-02-06 13:42 | Emergency (ER) | payer OTHER, SELFPAY ==
--- NOTE | ~2024-02-06 | XR_ITS ---
EXAMINATION: XR chest 2V Exam Date/Time: 02/06/2024 14:40 CDT HISTORY: cough, congestion X 3 WEEKS Comparison: 08/18/2023. RESULT: Lines, tubes, and devices: None. Lungs and pleura: Clear. Cardiomediastinal silhouette: Stable. Other: No acute osseous or upper abdominal finding. IMPRESSION: No acute cardiopulmonary process. Reviewed, dictated and finalized at location K.
[2024-02-06 13:44] VITALS: BP 165/93; PULSE 116; RESP 20; TEMP 36.2; O2SAT 99
--- NOTE | 2024-02-06 14:07 | ED.URI ---
HPI - URI/Sore Throat General Chief Complaint: Upper Respiratory Infection Stated Complaint: ear infection Time Seen by Provider: 02/06/24 14:00 Source: patient Mode of arrival: ambulatory Limitations: no limitations History of Present Illness HPI Narrative: Patient is a 48 y/o female, with PMH of DM, vasculitis on chronic daily steroid therapy, who presents to the ED with c/o URI sx's. Patient reports she has had sinus drainage/pressure, elisa ear pain and ringing, cough, congestion, body aches, chills/diaphoresis intermittently for the past 3 weeks. Has been seen in the ED for this and Rx'd doxycycline. Reported initial improvement with doxycycline, though sx's persisted after completing the abx. Her PCP rx'd her another course of doxycycline, but patient denies improvement. She has also been taking dayquil, nyquil, sudafed w/o improvement. Denies known fevers. Denies ear drainage. Denies sob, CP, known sick contacts. Related Data Home Medications Medication Instructions Recorded Confirmed aspirin 81 mg tablet 81 mg PO DAILY 10/15/20 08/10/23 atorvastatin 20 mg tablet 20 mg PO HS 10/15/20 08/10/23 lisinopril 10 mg tablet 20 mg PO DAILY 10/15/20 08/10/23 loratadine 10 mg tablet (Claritin) 10 mg PO DAILY 10/15/20 08/10/23 montelukast 10 mg tablet 10 mg PO HS 10/15/20 08/10/23 insulin glargine-yfgn 100 unit/mL 25 unit subcut BID 05/25/23 08/10/23 (3 mL) subcutaneous pen (Semglee (insulin glargine-yfgn) Pen) insulin lispro-aabc 100 unit/mL 10 unit subcut HS 05/25/23 08/10/23 subcutaneous pen (Lyumjev KwikPen U-100 Insulin) tirzepatide 5 mg/0.5 mL 5 mg subcut WEEKLY 05/25/23 08/10/23 subcutaneous pen injector (Yonasunzakro) venlafaxine 150 mg 150 mg PO DAILY 05/25/23 08/10/23 capsule,extended release 24 hr albuterol sulfate 2.5 mg/3 mL 2.5 mg inhalation DAILY PRN 08/10/23 08/10/23 (0.083 %) solution for nebulization Shortness Of Breath cetirizine 10 mg tablet (All Day 10 mg PO DAILY 08/10/23 08/10/23 Allergy (cetirizine)) ergocalciferol (vitamin D2) 50,000 unit PO DAILY 08/10/23 08/10/23 fluticasone propionate 50 1 spray intranasal DAILY 08/10/23 08/10/23 mcg/actuation nasal spray,suspension mycophenolate mofetil 500 mg tablet 800 mg PO Q12H 08/10/23 08/10/23 prednisone 20 mg tablet 40 mg PO DAILY@0800 08/10/23 08/10/23 Allergies Allergy/AdvReac Type Severity Reaction Status Date / Time amoxicillin AdvReac Unknown Nausea and Verified 02/06/24 14:29 Vomiting glipizide AdvReac Unknown NAUSEA AND Verified 02/06/24 14:29 VOMITING hydrocodone AdvReac Unknown Nausea and Verified 02/06/24 14:29 Vomiting metformin AdvReac Unknown Nausea and Verified 02/06/24 14:29 Vomiting Review of Systems Review of Systems: CONSTITUTIONAL: See HPI. ENT: see HPI. CARDIOVASCULAR: Denies chest pain, palpitations, or edema. RESPIRATORY: See HPI. MUSCULOSKELETAL: Reports myalgia. NEUROLOGIC: Denies headache, dizziness, numbness, or weakness. All systems reviewed & are unremarkable except as noted in HPI and below PMFSH Past Medical History Medical History Depression Diabetes Hypercholesterolemia Hypertension JEREMY on CPAP Surgical History Surgical History H/O arthroscopy H/O myomectomy Family History Family History Mother Myocardial infarction Diabetes mellitus Social History Social History Smoking status: Never smoker Alcohol intake: current Drinks per week: 1 Substance use: never Substance use type: does not use Do You Feel Safe in your Home?: Yes Lack of Transportation: No Lack of Food: Never True Current Housing: I Have Housing Concerned About Future Housing: No Difficulty Paying Gas/Electric Bills: No Difficulty Pa
[2024-02-06 14:30] VITALS: O2SAT 99
[2024-02-06] MEDS: methylPREDNISolone SOD SUCC 125 MG VIAL IM (14:30)
[2024-02-06 14:43] LABS: Influenza A QL RT-PCR Negative (Negative); Influenza B QL RT-PCR Negative (Negative); RSV RNA, RT-PCR Negative (Negative); SARS-CoV-2 RNA PCR Negative (Negative)
[2024-02-06 15:21] VITALS: BP 170/90; PULSE 102; RESP 18; TEMP 36.4; O2SAT 100
== END 2024-02-06 15:24 | disposition home or self-care (01) ==
PROVIDERS: Emergency Medicine; Emergency Provider Physician Assistant; PCP Internal Medicine
DX: J01.90 Acute sinusitis, unspecified (principal); J06.9 Acute upper respiratory infection, unspecified; J40 Bronchitis, not specified as acute or chronic; I10 Essential (primary) hypertension; E11.9 Type 2 diabetes mellitus without complications; Z20.822 Contact with and (suspected) exposure to COVID-19
CPT/HCPCS: 71046; 87637; 96372; 99283; J2919

== ENCOUNTER 2024-09-22 19:53 | Observation (INO) | payer OTHER, SELFPAY ==
--- NOTE | ~2024-09-22 | CT_ITS ---
EXAMINATION: CTA chest PE protocol DATE: 09/22/2024 23:44 INDICATION: Shortness of breath. TECHNIQUE: Computed tomography angiography (CTA) of the chest was performed with 100 mL Omnipaque-350 intravenous contrast timed to evaluate the pulmonary arteries. Coronal maximum intensity projection 3D-reconstructions were created by the technologist. Automated exposure control and iterative reconst ruction technique were employed. The dose-length product was 1173.22 mGy-cm. COMPARISON: Chest CT 08/12/2024 FINDINGS: There is elevation of right hemidiaphragm. There is mild atelectasis in inferior right lung . No pleural effusion. The heart size is normal. No pericardial effusion. There is no pulmonary embol us. There is moderate thoracic spondylosis. IMPRESSION: 1. No pulmonary embolus. 2. Elevation of right hemidiaphragm with mild atelectasis at right lung base. Reviewed, dictated and finalized at location A. E RIDE OPERATOR
--- NOTE | ~2024-09-22 | XR_ITS ---
EXAMINATION: XR chest 1V portable DATE: 09/24/2024 10:41 INDICATION: Right basilar atelectasis TECHNIQUE: frontal view of the chest was obtained. COMPARISON: Chest radiograph dated 09/22/2024 FINDINGS: Again seen is elevation the right hemidiaphragm. Lungs remain clear with no focal airspace opacities, pulmonary edema, pleural effusion or pneumothorax. The cardiomediastinal silhouette is normal. IMPRESSION: 1. Unchanged elevation right hemidiaphragm. No other acute cardiopulmonary disease. Reviewed, dictated and finalized at location A. RATOR MAN IMPRESSION: 1. Unchanged elevation right hemidiaphragm. No other acute cardiopulmonary dise ase.
--- NOTE | ~2024-09-22 | XR_ITS ---
EXAMINATION: SNIFF TEST W/O CXR +FLUORO<1HR DATE: 07/02/11 11:13:00 INDICATION: Right diaphragmatic paralysis. Dyspnea. TECHNIQUE: Fluoroscopy was utilized for evaluation of diaphragmatic excursion with rapid inspiration. Fluoroscopy exposure time was 0.1 minutes. Total DAP was 17.528 Gycm^2 COMPARISON: None. FINDINGS: There is mild elevation the right hemidiaphragm. There is relatively symmetric caudal excursion of rivka th the left and right leaves of the diaphragm with rapid inspiration. Visualized portions of lung are clear. Heart size is normal. IMPRESSION: 1. Elevated right hemidiaphragm but with normal sniff test. No evidence of phrenic nerve palsy. Reviewed, dictated and finalized at location A. TOP MECHANIC IMPRESSION: 1. Elevated right hemidiaphragm but with normal sniff test. No evidence of phr enic nerve palsy.
--- NOTE | ~2024-09-22 | XR_ITS ---
EXAMINATION: XR chest 2V DATE: 09/22/2024 20:56 INDICATION: Shortness of breath. TECHNIQUE: Frontal and lateral views of the chest were obtained. COMPARISON: Chest single view 08/13/2024 FINDINGS: There is elevation of right hemidiaphragm. There is mild atelectasis at right lung base. No pleural effusion or pneumothorax. The heart size is normal. IMPRESSION: 1. Elevation of right hemidiaphragm with mild atelectasis at right lung base. Reviewed, dictated and finalized at location A. C ASSISTANT
--- OUTSIDE RECORDS SUMMARY | 2024-09-22 19:55 | XMS_ITS | Encounter Summary ---
Author Organization [facility] Healthcare Address [address] [place] [address] Care Team Providers Care Endorsement Clerk Name Role Phone Ann Serrano MD Unavailable [phone] Lynn Rodriguez MD Primary Care Provider Reason for Visit * Reason Onset Date Comments Cancel 09/02/2024 Encounter Details Date Type Department Care Team (Late st Contact Info) Description 09/02/2024 Telephone [facility] [place] [address] Tiffanie Cantu, PT Cancel Social History Tobacco Use Types Packs/Day Years Used Date Smoking Tobacco: Never Cigarettes Smokeless Tobacco: Never Alcohol Use Standard Drinks/Week Comments No 0 (1 standard drink = 0.6 oz pur e alcohol) AUDIT-C Answer Date Recorded Q1: How often do you have a drink containing alc ohol? Monthly or less 06/08/2023 Q2: How many drinks containi ng alcohol do you have on a typical day when you are drinking? 1 or 2 06/08/2023 Q3: How often do you have si x or more drinks on one occasion? Never 06/08/2023 PHQ-2 Answer Date Recorded PHQ-2 Total Score (If total score is 3 or more points, staff should administer the PHQ-9) 0 08/23/2024 Comments Unknown Sex and Gender Information Value Date Recorded Sex Assigned at Not on file Legal Sex Female 11:54 PM SENIOR REGULATORY AFFAIRS SPECIALIST Gender Identity Female 09/19/2020 8:37 AM SENIOR REGULATORY AFFAIRS SPECIALIST Sexual Orientation Straight 09/19/2020 8: 37 AM SENIOR REGULATORY AFFAIRS SPECIALIST documented as of this encounter Miscellaneous Notes * Telephone Encounter - Andria Ge - 09/02/2024 10:13 AM CST Pt cancelled their NEXT SCHEDULED Appt that was scheduled on 09/05/24. Reason Given: Patient comments: still recovering from hospital stay; limited mobility Action Taken: No Action Required OR REGULATORY AFFAIRS SPECIALIST documented in this encounter Plan of Treatment Not on file documented as of this encounter Visit Diagnoses Not on filedocumented in this encounter Care Teams Endorsement Clerk Relationship Specialty [place] [id number] [address] PCP - General Internal Medicine 04/06/24 Ann Serrano MD Referring Physician Endocrinology Diabetes & Metabolism 06/08/20 documented as of this encounter
--- OUTSIDE RECORDS SUMMARY | 2024-09-22 19:55 | XMS_ITS | Clinical Summary ---
Author Organization [facility] Address [address] [place] [address] Phone Care Team Providers Care Can Solderer Name Role Phone Masoud Hayes MD Primary Care Provider [phone] Allergies Active Allergy Reactions Criticality Noted Date Comments Amlodipine Nausea and Vomiting Low 07/31/2023 Amoxicillin-Pot Clavulanate Nausea and Vomiting Low 07/31/2023 Glipizide Nausea and Vomiting Low 07/31/2023 Hydrochlorothiazide Nausea and Vomiting Low 023 Hydrocodone Nausea and Vomiting Low 07/31/2023 Liraglutide Nausea and Vomiting Low 07/31/2023 Metformin Nausea and Vomiting Low 07/31/2023 Medications diphenhydrAMINE hcl (UNISOM SLEEPGELS) 50 mg Oral capsule Take 50 mg by mouth Daily LATE. Active loratadine (CLARITIN) 10 mg Oral tablet Take 10 mg by mouth daily. Active lisinopril (PRINIVIL) 20 mg Oral tabletIndicatio ns:Dyspnea,Ovidio a,Hyperlipidemi a,Diabetes mellitus (CMS/HCC),HTN (hypertension) Take 1 Tab by mouth daily. 90 Tab 1 2 Active cetirizine (ZyrTEC) 10 mg tablet Take 1 Tablet (10 mg) by mouth daily. 30 Tablet 08/13/2022 2:47 PM SUPERVISOR SHEARING 3 Active amLODIPine (NORVASC) 2.5 mg tablet Take 1 Tablet (2.5 mg) by mouth daily in the morning. 90 Tablet 05/29/2023 5:55 PM CDT 3 Active cyclobenzaprine (FLEXERIL) 5 mg Tablet TAKE 1-2 TABLETS BY MOUTH NIGHTLY TO REDUCE MUSCLE CRAMPS 60 Tablet 3 07/10/2023 3:38 PM SUPERVISOR SHEARING 3 Active hydroxychloroqu ine (PLAQUENIL) 200 mg tablet TAKE 2 TABLETS BY MOUTH ONCE DAILY 60 Tablet 3 07/10/2023 3:38 PM SUPERVISOR SHEARING 3 Active mycophenolate mofetil (CELLCEPT) 500 mg tablet TAKE 3 TABLETS BY MOUTH TWICE DAILY 180 Tablet 4 07/10/2023 3:38 PM SUPERVISOR SHEARING 3 Active insulin glargine (LANTUS) 100 unit/mL pen syringe Use what insurance will cover either lantus, basaglar or semglee: 40 units AM and 40 units before dinnertime; MDD is 100 units. 30 mL 3 11/19/2023 11:05 AM CDT 4 Active traMADoL (ULTRAM) 50 mg tablet Take 1 tablet (50 mg total) by mouth every 8 (eight) hours as needed for pain 30 Tablet 07/13/2024 12:19 PM SUPERVISOR SHEARING 4 Active methylPREDNISol one (Medrol, Marvel,) 4 mg Tablets, Dose Pack Take by oral route as directed per package instructions on package for 6 days. 21 Tablet 04/29/2024 5:14 PM CDT 4 Active venlafaxine (EFFEXOR XR) 150 mg Extended Release 24 hour capsule Take 150 mg by mouth daily. 3 Active atorvastatin (LIPITOR) 20 mg tablet Take 20 mg by mouth daily. 3 Active diclofenac sodium (VOLTAREN) 75 mg Tablet, Delayed Release (E.C.) Take 75 mg by mouth 2 times daily. 4 Active ergocalciferol (VITAMIN D2) 50,000 unit capsule Take 50,000 Units by mouth. 3 Active fluticasone propionate (FLONASE) 50 mcg/spray [place], Suspension nasal inhaler Administer 2 Sprays in each nostril 1 time daily as needed. 3 Active folic acid (FOLVITE) 1 mg tablet 4 Active gabapentin (NEURONTIN) 300 mg capsule 4 Active glucagon (BAQSIMI) 3 mg/spray [place], Non-Aerosol Administer 1 [place] in each nostril. 4 Active insulin glargine-yfgn 100 unit/mL pen syringe Inject 20 AM and 30 units PM daily; MDD is 70 units. 3 Active Lyumjev KwikPen U-100 Insulin 100 unit/mL Insulin Pen Inject 15 units before meals plus sliding scale 1 unit for every 25 points >150 ; MDD is 55 units. 3 Active methotrexate (RHEUMATREX) 2.5 mg Tablet 4 Active montelukast (SINGULAIR) 10 mg tablet Take 1 Tablet by mouth late in the day. 3 Active pantoprazole (PROTONIX) 40 mg Tablet, Delayed Release (E.C.) 4 Active medroxyPROGESTE Enoch (Provera) 10 mg tablet Take 1 Tablet (10 mg) by mouth from the 1st to the 10th of the month. 30 Tablet 2 05/25/2024 1:28 PM CDT 4 Active predniSONE (DELTASONE) 10 mg tablet Take 4 Tablets (40 mg) by mouth daily. 120 Tablet 3 09/11/2024 3:51 PM SUPERVISOR SHEARING 4 Active venlafaxine (EFFEXOR XR) 150 mg Extended Release 24 hour capsule Take 1 capsule (150 mg total) by mouth daily 30 Capsule 07/13/2024 12:19 PM SUPERVISOR SHEARING 4 Active tirzepatide (Mounjaro) 10 mg/0.5 mL Pen Injector Inject 10 mg under the skin every 7 days 2 mL 3 09/04/2024 11:00 AM SUPERVISOR SHEARING 4 Active Active Problems Patient Care Coordination No te Formatting of this note migh t be different from the original. Multisensor Intelligence Officer: Dr. Peraza Problem Noted Date Diagnosed Date Dyspnea 03/19/2012 Overview (03/22/2012): 02/11 EKG: NSR at 92 02/11 echo (TDS): EF 55%, trace MR, PA 24 Edema 03/19/2012 Hyperlipidemia 03/19/2012 Overview (03/19/2012): 02/11 cholesterol 235 HDL 51 LDL 153 triglyceride 155 Diabetes mellitus 03/19/2012 Overview (03/19/2012): 02/11 hemoglobin A1c 8.2 HTN (hypertension) Encounters Date Type Department Care Team Description 08/24/2024 External Device Data STL ABSTRACTION Provider, Abstract 08/23/2024 External Device Data [facility] ABSTRACTION Provider, Abstract 08/16/2024 External Device Data [facility] ABSTRACTION Provider, Abstract 08/09/2024 External Device Data ST[facility] ABSTRACTION Provider, Abstract 06/28/2024 Telephone [facility] Clinical Support [address] [place] [id number] Torri Nicholson RN Results from Last 3 Months Family History Medical History Relation Name Comments Diabetes Maternal Grandmother Bleeding Problem Mother Diabetes Mother Heart Attack Mother Uterine Cancer Mother Diabetes Paternal Grandmother Depression Sister Diabetes Sister Relation Name Status Comments Father Alive no heart diseas e Maternal Grandmother Mother Alive CAD & CM at 60 (Zora Peguero) Paternal Grandmother Sister Alive no heart diseas e Social History Tobacco Use Types Packs/Day Years Used Date Smoking Tobacco: Never Smokeless Tobacco: Never Alcohol Use Standard Drinks/Week Comments No 0 (1 standard drink = 0.6 oz pur e alcohol) Comments No Sex and Gender Information Value Date Recorded Sex Assigned at Not on file Legal Sex Female 6:10 AM SUPERVISOR SHEARING Gender Identity Not on file Sexual Orientation Not on file 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 file Not on file Not on file Last Filed Vital Signs Vital Sign Reading Time Taken Comments Blood Pressure 128/90 06/21/2024 10:51 AM SUPERVISOR SHEARING Pulse 82 03/22/2012 2:23 PM CDT Temperature - - Respiratory Rate 18 03/22/2012 2:23 PM CDT Oxygen Saturation 97% 03/22/2012 1:51 PM CDT Inhaled Oxygen Concentration - - Weight 141.2 kg (311 lb 3.2 oz) 024 10:51 AM SUPERVISOR SHEARING Height 167.6 cm (5' 6 ) 05/17/2024 11:2 7 AM CDT Body Mass Index 50.23 05/17/2024 11:27 AM CDT Plan of Treatment Health Maintenance Due Date Last Done Comments DIABETES ANNUAL RETINAL EXAM 1994 DIABETES MICROALBUMIN ANNUAL SCREEN 1994 LDL CHOLESTEROL ANNUAL 1994 HEPATITIS B VACCINES (1 of 3 - 19+ 3-dose series) 1995 DTAP/TDAP/TD VACCINES (2 - T d or Tdap) 10/03/2017 10/04/2007 COVID-19 Vaccine (2 - Jansse n risk series) 11/02/2020 10/05/2020 FIT-DNA Q 3 years 2021 FIT/FOBT Q 1 year 2021 Flex Sig/CT Colonography Q 5 years 2021 INFLUENZA VACCINE (#1) 2024 , 05/23/2022, 05/16/2020, Additional history exists BREAST CANCER SCREENING 12/28/2024 12/29/19 24, 02/25/2023, 01/01/2022 DIABETES HBA1C Q 6 MONTHS 02/11/2025 08/14/2024, DIABETES ANNUAL FOOT EXAM 04/06/2025 04/06/2024 CERVICAL CANCER SCREENING 05/17/2027 05/17/2024 COLORECTAL SCREENING 04/02/2032 04/02/2022, 04/02/20 Colorectal Cancer Screening 04/02/2032 Procedures Procedure Name Priority Date/Time Associated Diagnosis Comments CERV/VAG CYTO AGE BASED SCREEN PAP Routine 05/17/2024 4:26 PM CDT Screening for malignant neoplasm of cervix from Last 3 Months or Most Recently Relevant to Health Maintenance Results * CERV/VAG CYTO AGE BASED SCREEN PAP (05/17/2024 4:26 PM CDT) COMMENT (PAP): [facility] Comment: This order for age-based cervical cancer and STI screening follows ACOG guidelines(PB 168, 140, TVK384). See individual assays for performing site location. CLINICAL INFORMATION [facility] Comment:None given LAST MENSTRUAL PERIOD [facility] Comment:10/02/2023 PREV PAP: [facility] Comment:NONE GIVEN PREV BX: [facility] Comment:NONE GIVEN SOURCE [facility] Comment:Endocervix ADEQUACY: [facility] Comment: Satisfactory for evaluation. Endocervical/transformation zone component absent. PAP INTERP NICE- Ashley Comment: Cytology Results: Negative for intraepithelial lesion or malignancy. COMMENT (PAP TEST) Q uest Tixers[facility]ikki Ramirez Comment: This Pap test has been evaluated with computer assisted technology. MAINSPRING WINDER: Ni Ramirez Comment: MEF, CT(ASCP) CT screening location: [place] [address] [place] [address] EXPLANATORY NOTE Que TixersRikki Ramirez Comment: EXPLANATORY NOTE: The Pap is a screening test for cervical cancer. It is not a diagnostic test and is subject to false negative and false positive results. It is most reliable when a satisfactory sample, regularly obtained, is submitted with relevant clinical findings and history, and when the Pap result is evaluated along with historic and current clinical information. HPV E6/E7 Not Detected Not Detected NICERikki Ramirez Comment: Methodology: Orthodontic Laboratory Technician-Mediated Amplification This assay detects E6/E7 viral messenger RNA (mRNA) from 14 high-risk HPV types (16,18,31,33,35,39,45,51,52,56,58,59,66,68). Cervical sources are required for HPV testing. If a vaginal source from a patient who has had a total hysterectomy with removal of cervix was submitted, please contact the testing laboratory for alternative testing options. For additional information, please refer to http://education.[employer]/faq/XFJ816v8 (This link if provided for information/ educational purposes only.) Test Performed at: [facility] [id number] [id number] Torin Dunn MD SL Genital SWAB OF ENDOCERVIX / Unknown 05/17/2024 4:26 PM CDT 05/18/2024 3:48 AM CDT us Kendrick Teague MD PATHOLOGY/CYTOLOGY ORDERABLE S Final Result [facility] [phone] [employer] [id number] [id number] from Last 3 Months or Most Recently Relevant to Health Maintenance Insurance RX [employer] RX Member Subscriber Plan / Payer (Ef fective 2023-Present) Name:Walt Huitron Relation to Subscriber:Self Name:Walt Huitron Subscriber ID:Not on file Payer ID:Not on file Group ID:[id number] Type:RX Commercial Address: [address] [employer] (INTERNAL) [facility] Care Teams Can Solderer Relationship Specialty Start Date End Date Masoud Hayes MD PCP - General Internal Medicine 03/08/12
--- OUTSIDE RECORDS SUMMARY | 2024-09-22 19:55 | XMS_ITS | Encounter Summary ---
Author Organization [facility] Address [address] [place] [address] Phone Care Team Providers Care Leave Manager Name Role Phone Kishor Saleh MD Primary Care Provider [phone] Ann Serrano MD Unavailable [phone] No, Physician Primary Care Provider [phone] Kishor Saleh MD Primary Care Provider [phone] Lynn Rodriguez MD Primary Care Provider Encounter Details Date Type Department Care Team (Late st Contact Info) Description 09/30/2017 Orders Only [facility] Care ProviderStephenie MD [address] [place] [address] Social History Tobacco Use Types Packs/Day Years Used Date Smoking Tobacco: Never Smokeless Tobacco: Never Alcohol Use Standard Drinks/Week Comments No 0 (1 standard drink = 0.6 oz pur e alcohol) Comments Unknown Sex and Gender Information Value Date Recorded Sex Assigned at Not on file Legal Sex Female 11:54 PM LAB TESTER Gender Identity Female 09/19/2020 8:37 AM LAB TESTER Sexual Orientation Straight 09/19/2020 8: 37 AM LAB TESTER documented as of this encounter Plan of Treatment Not on file documented as of this encounter Procedures Procedure Name Priority Date/Time Associated Diagnosis Comments DISCHARGE LABORATORY CUMULATIVE REPORT 09/30/2017 12:00 AM LAB TESTER documented in this encounter Results * DISCHARGE LABORATORY CUMULATIVE REPORT (09/30/2017 12:00 AM LAB TESTER) Narrative 09/30/2017 12:00 AM LAB TESTER Ordered by an unspecified provider. us Historical Provider LAB BLOOD ORDERABLES Flora l Result documented in this encounter Visit Diagnoses Not on filedocumented in this encounter Additional Health Concerns Infection Onset Date Last Indicated Resolved Time COVID: Suspected 08/13/2022 08/13/2022 08/13/2022 1:16 PM LAB TESTER documented as of this encounter Care Teams Leave Manager Relationship Specialty Start Date End Date Kishor Saleh MD PCP - General 09/28/08 11/16/23 No, Physician PCP - General 11/17/23 12/28/23 Kishor Saleh MD [address] [facility] [address], [place] [address] PCP - General Internal Medicine 12/29/23 04/05/24 [place] [address] [facility] [address], [place] [address] PCP - General Internal Medicine 04/06/24 Ann Serrano MD Referring Physician Endocrinology Diabetes & Metabolism 06/08/20 documented as of this encounter
--- OUTSIDE RECORDS SUMMARY | 2024-09-22 19:55 | XMS_ITS | Continuity of Care Document ---
Author Organization [facility] [place] Address [address] [place] [address] Phone Care Team Providers Care Associate Professor Of English Name Role Phone Alex Ingram MD Unavailable Unavailable Allergies, Adverse Reactions, Alerts Substance Reaction Status Criticality No Known Allergies Active No Inform ation Medications Medication Instructions Dosage Effective Dates (start - stop) Status Comments atorvastatin 20 mg tablet take 1 tablet by oral route every day 20 MG - Active montelukast 10 mg tablet take 1 tablet by oral route every day in the evening 10 MG - Active lisinopril 10 mg tablet take 1 tablet by oral route every day 10 MG - Active Ozempic 1 mg/dose (2 mg/1.5 mL) subcutaneous pen injector inject (1MG) by subcutaneous route every week on the same day of each week - Active Ergocal 62.5 mcg (2,500 unit) capsule take one tablet daily - Active Proair Digihaler 90 mcg/actuation aerosol powder breath act, sensor inhale 2 puff by inhalation route every 4 - 6 hours as needed - Active loratadine 10 mg tablet take 1 tablet by oral route every day 10 MG - Active aspirin 81 mg chewable tablet chew 1 tablet by oral route every day 81 MG - Active Invokana 300 mg tablet take 1 tablet by oral route every day before the first meal of the day 300 MG - Active Procedures Procedure Date Refraction No Charge Optomap Fundus Photos 023 SCODI, Retina Eye Exam & Treatment No Charge Refraction No Charge [facility] Fundus Photos 022 Eye Exam & Treatment Office/outpatient Visit, Est Office/outpatient Visit, New Advance Directives Directive Yes / No Effective Date File Name No Information Encounters Encounter Description Practice Location Reason(s) For Visit Diagnoses Date Provider Providers Copied on Encounter [facility], [address], [place], [place], [id number], [place] [phone] SEC [place] Professional Complete Exam (chief complaint) Diabetes mellitus without complication 3 Juan Jose Johnson. [address] [facility], [facility] [address], [place], [place], [id number], [place]. tel:[phone] Specialist: Ann Serrano MD, [address] [place], [address]. tel:[phone] alist: Ann Serrano MD, [facility] [place], [address]. tel:[phone] ring Provider: Kishor Saleh MD, [address] [facility] [address], [place], [address]. tel:[phone] [facility], [address], [place], [place], [id number], [place] tel:[phone] SEC [place] Professional diabetic eye exam (chief complaint) Diabetes mellitus without complicationE pidemic keratoconjunc tivitis of both eyes 2 Juan Jose Johnson. [address] [facility], [address], [place], [place], [id number], [place]. tel:[phone] Specialist: Ann Serrano MD, [address] [place], [address]. tel:[phone] ring Provider: Kishor Saleh MD, [address] [facility] [address], [place], [address]. tel:[phone] Office/outpa tient Visit, Est [facility], [address], [place], [place], [id number], [place] tel:[phone] SEC Alexandre UNDERWOOD Professional 2 week EKC f/u (chief complaint) Epidemic keratoconjunc tivitis of both eyes 1 Juan Jose Johnson. [address], [facility] [address], [place], [place], [id number], [place]. tel:[phone] Specialist: Ann Serrano MD, [address] [place], [address]. tel:[phone] ring Provider: Kishor Saleh MD, [address] [facility] [address], [place], [address]. tel:[phone] Office/outpa tient Visit, [facility], [address] [place] [address] [address], [place], [place], [id number], tel:[phone] SEC Alexandre UNDERWOOD Professional Complete Exam (chief complaint) Epidemic keratoconjunc tivitis of both eyesCorneal opacity of both eyes 1 Juan Jose Johnson. [address], [facility] [address], [place], [place], [id number], [place]. tel:[phone] Specialist: Ann Serrano MD, [address] [place], [address]. tel:[phone] ring Provider: Kishor Saleh MD, [address] [facility] [address], [place], [address]. tel:[phone] Family History Family Member Type Diagnosis Age At Onset Problem Family history of Diabetes m anna Payers Payer name Insurance type Covered alliance party ID Boby altman(s) R CI [id number] Social History Type Description Quantity Date Captured Comments Alcohol Use Details Caffeine Use Details Tobacco Use Status Current non-smoker Smoking Status Never smoker Non-Smoking Tobacco Use Details : No Details Available : No Details Available Sex Female Chief Complaint And Reason For Visit From encounter dated '11/10/2022 08:30'. Complete Exam (chief complaint). Description: The 47 year old patient presents for evaluation of Complete Exam with OCT-MAC in the right eye and left eye. Pt is NIDDM II x 6 yrs, followed by Dr. Serrano, pt reports she hasn't checked BS lately and A1C was 8.9 in July. Pt reports she has been noticing difficulty seeing the computer and playing the piano, OU, x couple mos. Reason For Referral Reason For Referral No Information Plan Of Treatment Date Type Action Status Patient Education How to Give a Glucagon Shot: Care Instructions completed Patient Education Type 2 Diabetes: Care I nstructions completed Patient Education Pinkeye: Care Instructi ons completed Patient Education Pinkeye: Care Instructi ons completed History Of Present Illness Encounter Date Complaint History Of Prese nt Illness Complete Exam The 47 year old patient presents for evaluation of Complete Exam with OCT-MAC in the right eye and left eye. Pt is NIDDM II x 6 yrs, followed by Dr. Serrano, pt reports she hasn't checked BS lately and A1C was 8.9 in July. Pt reports she has been noticing difficulty seeing the computer and playing the piano, OU, x couple mos. diabetic eye exam The 46 year ol d client presents for a complete Type II diabetic exam ou. BS was 300 yesterday due to what she ate and last A1C was 7.1. Patient denies any changes in vision ou. 2 week EKC f/u The 45 year old female presents for evaluation of 2 week EKC f/u in the right eye and left eye. Patient states eyes were improving when she was using the FML qid but when she went down to BID OU she started having the same symptoms again. Patient using FML BID OU. BS checked this am @ 180. Complete Exam The 45 year old female presents for evaluation of Complete Exam in the right eye and left eye. DM2, Last A1c 8.5, last tested 10/21, BS 150 as of yesterday, followed by Dr. Serrano. Pt reports burning, tearing, milky discharge, light sensitivity, and blurred vision OU x 2 weeks. Pt went to her PCP and was given Polytrim, but stopped taking it because Polytrim started burning after a couple uses. Pt reports milky discharge has subsided, but still has all other symptoms. Functional Status Date Functional Assessmen t No Information Instructions Date Instruction Additional Infor ibrahima Impression/Plan Impression/Plan Impression/Plan Impression/Plan Assessments Type Assessment Date assessment Diabetes mellitus without compli cation Patient Care Teams Name Effective Dates (start - stop) Status Members No Information
--- OUTSIDE RECORDS SUMMARY | 2024-09-22 19:55 | XMS_ITS | Encounter Summary ---
Author Organization [facility] Address [address] [place] [address] Care Team Providers Care Assistant Professor Of Art Name Role Phone Ann Serrano MD Unavailable Lynn Rodriguez MD Primary Care Provider Reason for Visit * Reason Onset Date Comments Cancel 08/30/2024 Encounter Details Date Type Department Care Team (Late st Contact Info) Description 08/30/2024 Telephone [facility] at [address] [place] [address] Ele Vazquez, PT Cancel Social History Tobacco Use Types [...] on file Legal Sex Female 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 Reason Given: Reason for cancellation: Canceled via MyChart Patient comments: still recovering from hospital stay Action Taken: No Action Required UROY BRUSHER OPERATOR documented in this encounter Plan of Treatment Not on file documented as of this encounter Visit Diagnoses Not on filedocumented in this encounter Care Teams Assistant Professor Of Art Relationship Specialty [place] [id number] [address] PCP - General Internal Medicine 04/06/24 Ann Serrano MD Referring Physician Endocrinology Diabetes & Metabolism 06/08/20 documented as of this encounter
--- OUTSIDE RECORDS SUMMARY | 2024-09-22 19:55 | XMS_ITS | Referral Summary ---
Author Organization [facility] A Address [address] [place] [address] Care Team Providers Care Manager Flight Operations Name Role Phone Ann Serrano MD Unavailable [phone] Lynn Rodriguez MD Primary Care Provider Encounters Date Type Department Care Team Description 09/09/2024 Documentation [facility] at [address] [address] Tiffanie Cantu, PT PT Discharge 09/02/2024 Telephone [facility] at [address] [address] Tiffanie Cantu, PT Cancel 08/30/2024 Telephone [facility] at [address] [address] Ele Vazquez, PT Cancel 08/24/2024 Telephone [facility] [address] [place] [address] Yuki Mccain RN 08/23/2024 11:00 AM GUN FERTILIZER Office Visit [facility] Primary Care - [facility] [id number] [place] [address] [address], [place] [address] Lynn Rodriguez MD Mild intermittent extrinsic asthma without complication (Primary Dx); Impaired mobility; Acute hypoxic respiratory failure (HCC); History of respiratory syncytial virus (RSV) vaccination; Class 3 severe obesity due to excess calories with serious comorbidity and body mass index (BMI) of 45.0 to 49.9 in adult (HCC) 08/19/2024 Telephone [facility] [address] [place] [phone] Sarah Baird, RN Medical Question/Miscellane ous 08/19/2024 Telephone [facility] [address] [place] [phone] Sarah Baird, RN 08/18/2024 Telephone [facility] [address] [place] [phone] Sarah Baird, RN 08/17/2024 Telephone [facility] [address] [place] [phone] Sarah Baird, RN 08/09/2024 Orders Only [facility] Endocrinology Metabolism and Lipid [address] [facility] 13[address] [place] [address] [place] [address] Stephanie Sandoval RMA Uncontrolled type 2 diabetes mellitus with hyperglycemia (HCC) 08/09/2024 Telephone [facility] at [address] [address] Ele Vazquez, PT Cancel 08/05/2024 Telephone [facility] at [address] [address] Ele Vazquez, PT Cancel (excused) 08/04/2024 Telephone [facility] at [address] [address] Tiffanie Cantu, PT Appointment 07/29/2024 Plan of Care Documentation [facility] at [address] [address] 07/29/2024 12:00 PM GUN FERTILIZER Therapy [facility] at [address] [address] Tiffanie Cantu, PT Impaired mobility (Primary Dx); Lymphedema 07/13/2024 9:00 AM GUN FERTILIZER Office Visit 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) from Last 3 Months Allergies Active Allergy Reactions Criticality Noted Date Comments Amlodipine Swelling,Nausea And Vomiting Low 07/31/2023 Reaction: Swelling, Amoxicillin Nausea only Reaction: nausea, , Reaction: Nausea, Glipizide Nausea only Reaction: nausea, , Reaction: Nausea, Hydrochlorothiazide Stomach upset Reaction: GI upset, Hydrocodone Nausea only Reaction: Nausea, Metformin Nausea only,Vomiting Reaction: nausea, , Reaction: Nausea, , Reaction: Vomiting, Liraglutide Other (See comments) Low 09/01/2018 bruising Medications fluticasone (FLONASE) 50 mcg/actuation nasal spray Administer 2 sprays into each nostril daily. 16 g 11 018 Active Additional Information Patient taking differently:2 spray each nostrilAs needed, Reported on 01/17/2022 albuterol HFA (ProAir HFA) 90 mcg/actuation inhaler Inhale 2 puffs every 4 (four) hours as needed for wheezing or shortness of breath 8.5 g 1 020 Active ibuprofen (ADVIL,MOTRIN) 600 mg tabletIndication s:Acute sinusitis, recurrence not specified, unspecified location Take 1 tablet (600 mg total) by mouth every 6 (six) hours as needed for pain, fever or headaches (pain) 60 tablet 023 Active cetirizine (ZyrTEC) 10 mg tabletIndication s:Acute sinusitis, recurrence not specified, unspecified location Take 1 tablet (10 mg total) by mouth daily 30 tablet 023 Active albuterol 2.5 mg /3 mL (0.083 %) nebulizer solution Take 3 mL (2.5 mg total) by nebulization every 6 (six) hours as needed for wheezing 75 mL 1 024 Active clobetasoL (TEMOVATE) 0.05 % ointment APPLY TO AFFECTED AREA(S) TWICE DAILY FOR 2 WEEKS Active cyclobenzaprine (FLEXERIL) 5 mg tablet Take 2 tablets (10 mg total) by mouth nightly as needed 023 Active hydroxychloroqui ne (PLAQUENIL) 200 mg tablet Take 1 tablet (200 mg total) by mouth 2 (two) times a day 023 Active loratadine (CLARITIN) 10 mg tablet Take 1 tablet (10 mg total) by mouth daily Active glucagon (BAQSIMI) 3 mg/actuation spray,non-aeroso lIndications:Unc ontrolled type 2 diabetes mellitus with hyperglycemia (HCC) Administer 1 spray into one nostril as needed (In case of emergency low blood sugars) 1 each [address] (VOLTAREN) 75 mg EC tablet Take 1 tablet (75 mg total) by mouth 2 (two) times a day 024 Active lisinopriL (PRINIVIL,ZESTRI L) 20 mg tablet TAKE 1 TABLET BY MOUTH DAILY 90 tablet 3 024 Active atorvastatin (LIPITOR) 20 mg tablet TAKE 1 TABLET BY MOUTH DAILY 90 tablet 3 024 Active insulin glargine (LANTUS) 100 unit/mL (3 mL) pen for injectionIndicat ions:Uncontrolle d type 2 diabetes mellitus with hyperglycemia (HCC) 45 units twice daily 024 Active LYUMJEV 100 unit/mL pen for injectionIndicat ions:Uncontrolle d type 2 diabetes mellitus with hyperglycemia (HCC) Inject 15 units before meals plus sliding scale 1 unit for every 25 points >150 ; MDD is 55 units. 024 Active predniSONE (DELTASONE) 10 mg tablet Active traMADoL (ULTRAM) 50 mg tablet Take 1 tablet (50 mg total) by mouth every 8 (eight) hours as needed for pain 30 tablet Active ergocalciferol (Vitamin D2) 50,000 unit capsule TAKE 1 CAPSULE BY MOUTH TWICE A WEEK 26 capsule 1 Active venlafaxine XR (EFFEXOR-XR) 150 mg 24 hr capsule Take 1 capsule (150 mg total) by mouth daily 30 capsule Active Protonix 40 mg EC tablet 024 Active pamabrom (DIUREX MAX ORAL) 024 Active gabapentin (NEURONTIN) 300 mg capsule Active folic acid (FOLVITE) 1 mg tablet Active lancets 33 gauge miscIndications: Uncontrolled type 2 diabetes mellitus with hyperglycemia (HCC) Use to check blood sugar as directed up to 4 times daily. 400 each 3 024 Active tirzepatide (Mounjaro) 10 mg/0.5 mL pen injectorIndicati ons:Uncontrolled type 2 diabetes mellitus with hyperglycemia (HCC),Morbid obesity with BMI of 50.0-59.9, adult (HCC) Inject 10 mg under the skin every 7 days 2 mL 3 024 Active pen needle, diabetic (Pen Needle) 32 gauge x 5/32 needleIndication s:Uncontrolled type 2 diabetes mellitus with hyperglycemia (HCC) Use to inject insulin up as directed to 5 times daily. 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 Change sensor every 10 days. 9 each 3 024 Active blood glucose diagnostic stripIndications :Uncontrolled type 2 diabetes mellitus with hyperglycemia (HCC) Use to check blood sugar as directed up to 4 times dialy. 400 strip 3 025 Active acetaminophen (TYLENOL) 500 mg tablet Take 1 tablet (500 mg total) by mouth every 6 (six) hours as needed Active medroxyPROGESTER one (PROVERA) 10 mg tablet Take 1 tablet (10 mg total) by mouth Active methotrexate 2.5 mg tablet Take 5 tablets (12.5 mg total) by mouth Active methylPREDNISolo ne (MEDROL DOSEPACK) 4 mg Dosepack Take by oral route as directed per package instructions on package for 6 days. 024 Active montelukast (SINGULAIR) 10 mg tablet Take 1 tablet (10 mg total) by mouth nightly Active cyclobenzaprine (FLEXERIL) 10 mg tablet 3 Active FOLIC ACID ORAL Active gabapentin Active blood-glucose sensor (FreeStyle Silva 3 Sensor) deviceIndication s:Uncontrolled type 2 diabetes mellitus with hyperglycemia (HCC),nursing home (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) Use for continuous glucose monitoring. 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 Okay to use Tylenol or ibuprofen as needed for pain. Call back with any change in symptoms. Rest, fluids, avoiding heavy physical activity recommended until symptoms resolved. Plantar fasciitis 01/17/2022 Assessment & Plan (01/17/2022 10:23 AM CDT): Stretching exercises demonstrated. Ice her foot routinely. Increase ibuprofen to 600 mg 3 times a day with food and warned of GI and cardiovascular side effects. Wear shoes at all times. Podiatry referral if no improvement. Has immunity to COVID-19 virus 06/21/2021 Overview (06/30/2022): Pito vaccine 10/05/2020, Moderna booster and Pfizer bivalent booster Assessment & Plan (06/24/2021 3:28 PM GUN FERTILIZER): Pito vaccine 10/05/2020 and Moderna booster Jun 2021 Major depressive disorder 04/22/2021 Assessment & Plan (01/06/2024 9:09 AM CDT): Stable on current medication regimen. Assessment & Plan (01/17/2022 10:21 AM CDT): Stable on current medication regimen. Assessment & Plan (07/17/2021 2:07 PM GUN FERTILIZER): Better controlled on venlafaxine. Assessment & Plan (04/22/2021 8:25 AM CDT): Restart venlafaxine and warned of side effects and call back if any develop or if no improvement. Type 2 diabetes mellitus with hyperlipidemia 06/2020 Assessment & Plan (01/06/2024 9:09 AM CDT): A1c above goal. Will start Mounjaro soon. Continue other medications as directed by her windows administrator. Diet exercise discussed. Hopefully may be able to wean prednisone in the near future as well. Assessment & Plan (06/15/2023 10:48 AM GUN FERTILIZER): She knows that the steroids will exacerbate her hyperglycemia and should be in contact with her windows administrator for management. Assessment & Plan (06/08/2023 5:26 PM GUN FERTILIZER): Poor control of her diabetes prior to this hospitalization and even worse now on prednisone. Follow-up with her windows administrator for management. Diet exercise weight loss recommended. Assessment & Plan (01/21/2023 9:50 AM CDT): Blood sugars remain above goal. Hopefully the recent addition of mounjaro will help significantly. Discuss up titration of this and her mealtime insulin with her windows administrator. Diet exercise discussed. Check A1c and fasting blood sugar before next visit. Assessment & Plan (08/02/2022 12:16 PM GUN FERTILIZER): A1c poorly controlled. Importance of diet exercise weight loss discussed at length. Continue her Ozempic and insulin and needs to contact her windows administrator soon as possible for guidance on further therapy. Assessment & Plan (01/17/2022 10:22 AM CDT): Patient aware A1c grossly uncontrolled. Must work on diet exercise and weight loss. She has to get back on her insulin and should discuss this today with her windows administrator. Risks posed her health with poor glycemic control discussed. Assessment & Plan (07/13/2020 8:34 AM GUN FERTILIZER): A1c above goal. Importance of diet exercise weight loss discussed. Continue current medication regimen and follow-up with her windows administrator as they direct. 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 Unfortunately lab work and skin biopsy inconclusive. Discussed possible rheumatology 2nd opinion here at [facility] and patient will call back if desired. Assessment & Plan (06/15/2023 10:48 AM GUN FERTILIZER): Certainly making a case for underlying vasculitis as her condition changes rapidly with either the addition or subtraction of steroids. Restart prednisone taper. Call back when few days left so we can decrease her to 10 mg for a few days and plan on leaving her on 5 mg indefinitely. Dermatology referral for evaluation and possible biopsy. Call back with any change condition. Assessment & Plan (06/20/2020 9:35 AM GUN FERTILIZER): Unclear etiology but I am thinking of possible folliculitis/impetigo. She should wear disposable masks. Will try Keflex. Warned of side effects and call back if any develop. If she fails to improve would recommend prednisone taper for contact dermatitis. Call back if no improvement next week for further instructions. Will hold off on topical Neosporin. Class 3 severe obesity due t o excess calories with serious comorbidity and body mass index (BMI) of 45.0 to 49.9 in adult 07/08/2019 Assessment & Plan (08/26/2024 6:10 PM GUN FERTILIZER): Body mass index is 49.1 kg/m . BMI Follow-up includes: nutrition counseling, exercise counseling, and education provided. Assessment & Plan (07/13/2024 12:20 PM GUN FERTILIZER): - Increase Mounjaro to 10 mg weekly - Physical activity is limited due to chronic pain, encouraged her to increase physical activity as tolerated Assessment & Plan (04/06/2024 4:09 PM CDT): Counseled on weight loss and continuing DM medications and working on blood sugar control, exercising more, and limiting snacks and fatty foods Assessment & Plan (12/29/2023 12:58 PM CDT): - Weight has recently increased - Did not discuss lifestyle modifications in detail. Briefly discussed healthier snack options. She would greatly benefit from a CDE appointment. - Restarting Mounjaro 5 mg for once month --> 7.5 mg weekly injection. - Will continue to titrate up as tolerated. Assessment & Plan (11/18/2023 8:34 AM CDT): - Did not discuss lifestyle modifications in detail. Will address at next visit. - Restarting Mounjaro 5 mg for once month --> 7.5 mg weekly injection. - Will continue to titrate up as tolerated. Assessment & Plan (06/08/2023 5:23 PM GUN FERTILIZER): Patient is encouraged to lose weight with a combination of caloric reduction and increased exercise. Various strategies discussed. The long-term risks associated with continued morbid obesity discussed. Assessment & Plan (09/04/2022 2:34 PM GUN FERTILIZER): Patient is encouraged to lose weight with a combination of caloric reduction and increased exercise. Various strategies discussed. The long-term risks associated with continued morbid obesity discussed. Assessment & Plan (08/02/2022 12:16 PM GUN FERTILIZER): Patient is encouraged to lose weight with a combination of caloric reduction and increased exercise. Various strategies discussed. The long-term risks associated with continued morbid obesity discussed. Assessment & Plan (01/17/2022 10:21 AM CDT): Patient is encouraged to lose weight with a combination of caloric reduction and increased exercise. Various strategies discussed. The long-term risks associated with continued morbid obesity discussed. Assessment & Plan (04/22/2021 8:25 AM CDT): Patient is encouraged to lose weight with a combination of caloric reduction and increased exercise. Various strategies discussed. The long-term risks associated with continued morbid obesity discussed. Assessment & Plan (07/13/2020 8:34 AM GUN FERTILIZER): Patient is encouraged to lose weight with a combination of caloric reduction and increased exercise. Various strategies discussed. The long-term risks associated with continued morbid obesity discussed. Assessment & Plan (06/20/2020 9:35 AM GUN FERTILIZER): Patient is encouraged to lose weight with a combination of caloric reduction and increased exercise. Various strategies discussed. The long-term risks associated with continued morbid obesity discussed. Assessment & Plan (07/08/2019 8:44 AM GUN FERTILIZER): Patient is encouraged to lose weight with a combination of caloric reduction and increased exercise. Various strategies discussed. The long-term risks associated with continued morbid obesity discussed. Irregular menses 06/03/2019 Allergic rhinitis 07/05/2018 Assessment & Plan (02/23/2023 1:30 PM CDT): Nasal saline spray (Simply saline, Little Remedies, [place], [place]) 2 second sprays or 2 squeezes into each nostril while looking down over the sink, do not need to sniff in twice daily and as needed Followed by Flonase 2 sprays into each nostril while looking down over the sink, do not sniff in or blow nose after use for at least 30 minutes daily in the evening 30-60 minutes before CPAP use. Blood allergy testing - call with results Continue Claritin and Singulair daily Assessment & Plan (07/17/2021 2:07 PM GUN FERTILIZER): Claritin montelukast. Assessment & Plan (04/22/2021 8:25 AM CDT): Currently using Claritin and montelukast. She has not been trying Flonase as her nose is being to congested. Recommended sinus rinses her using a hot warm shower. Could also try Afrin for few days. Assessment & Plan (07/08/2019 8:43 AM GUN FERTILIZER): Add montelukast to her Claritin. She struggles with nasal sprays due to chronic congestion. Assessment & Plan (07/05/2018 9:24 AM GUN FERTILIZER): Try Afrin for 3 days along with initiating fluticasone. Stop Afrin in3 days and continue fluticasone indefinitely. continue Zyrtec. Mixed hyperlipidemia 07/02/2017 Assessment & Plan (07/13/2024 12:21 PM GUN FERTILIZER): - Last LDL 103, TG 308, TC 233 (12/2023), above goal - Need to optimize glycemic control. Plan to recheck FLP when glycemic control has improved - Continue Lipitor 20 mg daily - Consider increasing and/or adding another medication in order to further reduce LDL to goal < 70 mg/dL Assessment & Plan (04/06/2024 4:07 PM CDT): Labs up to date discussed continue current dose of statin and limiting carbs, fast foods, and snacking Discussed methods of weight loss including: -counseling on diet, exercise, and goals for weight loss - balanced low-calorie, low-fat/low-calorie, moderate-fat/low-calorie, or low-carbohydrate diets, as well as the Mediterranean diet - physical activity approximately 30 minutes or more, five to seven days a week, to prevent weight gain and to improve cardiovascular health Assessment & Plan (03/13/2024 7:39 PM CDT): Continue statin and optimize glycemic control Assessment & Plan (01/06/2024 9:07 AM CDT): Levels close to goal on her atorvastatin 20 mg daily. When other medical issues improved may consider increasing dose to 40 mg daily. Continue efforts at diet exercise. Assessment & Plan (12/29/2023 12:55 PM CDT): - Last LDL 96, TRIG 325 (07/2022), above goal - Ordered lipid panel today - Continue lipitor 20 mg daily. May consider increasing and/or adding another agent to reduce LDL to goal of <70 mg/dL and to reduce triglycerides. Assessment & Plan (11/18/2023 8:30 AM CDT): - Last LDL 96, TRIG 325 (07/2022), above goal - Plans to redraw lipid panel at next visit - Continue lipitor 20 mg daily. May consider increasing and/or adding another agent to reduce LDL to goal of <70 mg/dL and to reduce triglycerides. Assessment & Plan (09/12/2023 8:12 PM GUN FERTILIZER): Continue statin and optimize glycemic control Assessment & Plan (02/16/2023 8:14 PM CDT): Continue statin and optimize glycemic control Assessment & Plan (01/21/2023 9:50 AM CDT): Continue her atorvastatin and work on diet exercise and check lipids and LFTs before next visit. Assessment & Plan (08/02/2022 12:15 PM GUN FERTILIZER): Well controlled on current therapy and will check a lipid panel and LFTs in 6 months. Assessment & Plan (01/17/2022 10:21 AM CDT): Well controlled on current therapy and will check a lipid panel and LFTs in 6 months. Assessment & Plan (07/17/2021 2:06 PM GUN FERTILIZER): Well controlled on current therapy and will check a lipid panel and LFTs in 6 months. Assessment & Plan (06/24/2021 3:28 PM GUN FERTILIZER): Continue statin and optimize glycemic control Assessment & Plan (12/19/2020 7:53 AM CDT): Continue statin and optimize glycemic control Assessment & Plan (07/13/2020 8:34 AM GUN FERTILIZER): Well controlled on current therapy and will check a lipid panel and LFTs in 6 months. Assessment & Plan (06/08/2020 8:31 AM GUN FERTILIZER): LDL within goal. Continue statin and optimize glycemic control Assessment & Plan (07/08/2019 8:42 AM GUN FERTILIZER): Well controlled on current therapy and will check a lipid panel and LFTs in 12 months. Assessment & Plan (09/01/2018 2:22 PM GUN FERTILIZER): Continue statin, optimize glycemic control Assessment & Plan (07/05/2018 9:23 AM GUN FERTILIZER): Well controlled on current therapy and will check a lipid panel and LFTs in 6 months. Assessment & Plan (08/26/2017 4:27 PM GUN FERTILIZER): Start atorvastatin and check lipids and LFTs in 3-4 months. Call back for results. Vitamin D deficiency 07/02/2017 Assessment & Plan (07/13/2024 12:22 PM GUN FERTILIZER): - Last Vitamin D 42 (12/2023), replete - Continue chronic supplementation Assessment & Plan (03/13/2024 7:37 PM CDT): Continue long-term supplement Assessment & Plan (12/29/2023 12:57 PM CDT): - Last Vitamin D 37 (07/2022), at goal - Obtain new level today - Continue taking 50,000 units twice a week Assessment & Plan (11/18/2023 8:30 AM CDT): - Last Vitamin D 37 (07/2022), at goal - Obtain new level at next visit - Continue taking 50,000 units twice a week Assessment & Plan (09/12/2023 8:12 PM GUN FERTILIZER): Continue long-term supplement Assessment & Plan (02/16/2023 8:14 PM CDT): Continue long-term supplement Assessment & Plan (08/02/2022 12:15 PM GUN FERTILIZER): Continue current supplementation and check level in 1 year. Assessment & Plan (07/17/2021 2:06 PM GUN FERTILIZER): Continue current supplementation and check level in 1 year. Assessment & Plan (06/24/2021 3:29 PM GUN FERTILIZER): Continue long-term supplement Assessment & Plan (12/19/2020 7:53 AM CDT): Continue long-term supplement Assessment & Plan (07/13/2020 8:33 AM GUN FERTILIZER): Continue current supplementation and check level in 1 year. Assessment & Plan (06/08/2020 8:31 AM GUN FERTILIZER): Vitamin-D level within goal, continue chronic supplement Assessment & Plan (07/08/2019 8:42 AM GUN FERTILIZER): Continue current supplementation and check level in 1 year. Assessment & Plan (06/03/2019 8:24 AM CDT): Recently ran out of supplement, so we will restart and check her level today. Also check B12 Assessment & Plan (09/01/2018 2:22 PM GUN FERTILIZER): Continue supplement Assessment & Plan (07/05/2018 9:23 AM GUN FERTILIZER): Continue current supplementation and check level in 1 year. Assessment & Plan (08/26/2017 4:26 PM GUN FERTILIZER): Continue current supplementation and check level in 1 year. Uncontrolled type 2 diabetes mellitus with hyper glycemia 03/24/2016 Overview (07/05/2018): Cannot tolerate metformin, glipizide due to nausea/vomiting; Invokana works better than jardiance. Does not tolerate acarbose Assessment & Plan (08/26/2024 6:10 PM GUN FERTILIZER): Assessment & Plan (07/13/2024 12:20 PM GUN FERTILIZER): - Diabetes is complicated by hyperlipidemia, hypertension, morbid obesity and chronic steroid use. Uncontrolled. Lab Results Component Value Date HGBA1C 11.7 07/13/2024 Per [place], goal A1c is less 7% without significant hypoglycemia. - Management Goal: single digit A1c - New Regimen - Multiple Daily Injections Increase Mounjaro 10 mg weekly Lantus 45 units twice daily - AM and dinnertime Increase Lyumjev 18 units before each meal plus sliding scale 1:25 for glucoses >150 - She would greatly benefit for a CGM to titrate her insulin throughout the day. Studies have shown that just wearing a CGM can reduce an A1c by 1-2%, which would be greatly impactful for her glycemic control. Sent in prescriptions for both Dexcom G7 and SocialSafe Silva 3 CGM for olivares checking. Also discussed use of Dexcom Stelo. - Advised bolusing 10-15 minutes before each meal. - Advised annual dilated eye exam - due. Encouraged her to schedule this. - Advised checking blood glucose before driving - Discussed hypoglycemia risk, and treatment such as the rule of 15s and the use of glucagon - Annual labs are UTD. - Update me on consistent glycemia excursions or if there is any hypoglycemia. - Advised and ensured that I am available via phone or MyChart if they have any concerns for hypo/hyperglycemia, medication refills, etc. Assessment & Plan (04/06/2024 4:04 PM CDT): Last A1C Lab Results Component Value Date HGBA1C 11.4 (H) 12/29/2023 Not controlled Recommend diet change and exercise Low carb diet Continue current medication follows endo Dr. Serrano recently seen 03/2024 changes made: Increase Lantus to 45 units bid Increase Lyumjev to 15 units with meals, plus sliding scale. She should notify him of glucoses so we can adjust therapy, as indicated. Return visit 3 months to see the MANAGER BABY/PA, 6 months to see me. Assessment & Plan (03/13/2024 7:38 PM CDT): Still somewhat high glucoses; needs to increase basal insulin, take tid mealtime insulin plus a sliding scale. Hopefully someday her insurance will cover CGM of some sort. Assessment & Plan (12/29/2023 12:51 PM CDT): - Diabetes is complicated by HTN, HLD, steroid use, hyperglycemia and obesity. Uncontrolled. Lab Results Component Value Date HGBA1C 12.5 11/17/2023 Per [place] [employer], goal A1c is less 7% without significant hypoglycemia. - Continue current medication regimen at this time. Encouraged to start giving 10 units of Lyumjev for snacks. - She has still not received Mounjaro, states she thinks she may get a supply later today. Advised her to reach out and let us know, we could switch back to Ozempic. - Insurance does not cover CGMs. Will continue using glucometer. - Advised bolusing 5-10 minutes before each meal. - Advised annual dilated eye exam. - Advised checking blood glucose before driving - Discussed hypoglycemia risk, and treatment such as the rule of 15s and the use of glucagon. - Discussed sick rules, checking ketones if > 300 or if ill. - Labs ordered. - Update me on consistent glycemia excursions or if there is any hypoglycemia. - Advised and ensured that I am available via phone or [employer]hart if they have any concerns for hypo/hyperglycemia, medication refills, etc. Assessment & Plan (11/18/2023 8:23 AM CDT): - Diabetes is complicated by HTN, HLD, steroid use, hyperglycemia and obesity. Uncontrolled. Lab Results Component Value Date HGBA1C 12.5 11/17/2023 Per [place] [employer], goal A1c is less 7% without significant hypoglycemia. - Management Goal: re-start and adherence to medication regimen - Continue current medication regimen at this time. - Patient called local pharmacy to confirm that they do have prescriptions for her Semglee. She is going to fiber picker today after this visit. - Insurance does not cover CGMs. Will continue using glucometer. - Advised bolusing 10-15 minutes before each meal. - Advised annual dilated eye exam. - Advised checking blood glucose before driving - Discussed hypoglycemia risk, and treatment such as the rule of 15s and the use of glucagon. New prescription sent. - Discussed sick rules, checking ketones if > 300 or if ill. - Defer labs to later visit. - Update me on consistent glycemia excursions or if there is any hypoglycemia. - Advised and ensured that I am available via phone or MyChart if they have any concerns for hypo/hyperglycemia, medication refills, etc. Assessment & Plan (09/12/2023 8:13 PM GUN FERTILIZER): Very high glucoses; multifactorial including steroid therapy, recent COVID and general insulin resistance. Increasing Mounjaro but needs to also increase basal insulin, take tid mealtime insulin plus a sliding scale. Assessment & Plan (02/16/2023 8:15 PM CDT): Gucoses very high still; Semglee also tends to wear off so need to split dose. Also need to increase Mounjaro. Assessment & Plan (12/21/2022 5:05 PM CDT): Her most recent Hemoglobin A1c increased to 11.9% in 07/2022. BG logs were reviewed today. She is tolerating Ozempic 1mg well and without side effects at this time. Recommend switching to Mounjaro to help better manage BG and promote weight loss. She has been taking Semglee PM daily, consistently. Dosing has been recently increased. Recommend starting mealtime insulin with the biggest meal of the day. She is also taking lisinopril 20mg and atorvastatin 20mg daily. Assessment & Plan (06/24/2021 3:29 PM GUN FERTILIZER): Much improved but needs a little more basal insulin. Assessment & Plan (12/19/2020 7:53 AM CDT): Multiple medications, but now requires insulin. We can gradually adjust her Lantus based on her clinical response. Assessment & Plan (06/08/2020 8:32 AM GUN FERTILIZER): Glucoses somewhat better now that she is on Victoza (Ozempic was denied by her insurance). She may need additional medication, but for now we will see how she does with her current regimen with better diet and lifestyle. She also may do better with a Silva testing device or she can monitor more often, serving as a cue motivator. Assessment & Plan (07/08/2019 8:43 AM GUN FERTILIZER): Continue increased dose of Ozempic and also continue Invokana. Importance of dietary changes increase exercise weight loss discussed. Follow-up with her windows administrator as they direct. Assessment & Plan (06/03/2019 8:25 AM CDT): Somewhat suboptimal, would benefit from increasing Ozempic and continuing efforts with diet and lifestyle. Needs follow-up labs Assessment & Plan (09/01/2018 2:22 PM GUN FERTILIZER): Glucoses a little high, but she has bruising with Victoza so she may benefit by changing to weekly Ozempic, which is a little stronger, as well. Jardiance is been ineffective, so we may need to provide preauthorization for Invokana Assessment & Plan (07/05/2018 9:23 AM GUN FERTILIZER): A1c above goal. We stressed importance of increased exercise, reduce calories, weight loss. Could consider switching Victoza to ozempic. Otherwise does not tolerate metformin or sulfonylureas. May need insulin soon. She is directed to follow up with her windows administrator more quickly than her next scheduled appointment in November. Assessment & Plan (08/26/2017 4:26 PM GUN FERTILIZER): Continue current medication regimen and follow up with her windows administrator as they direct. Low carb diet weight loss recommended. Check blood sugars once daily. Start atorvastatin and check lipids and LFTs in 3-4 months. Anxiety state 12/17/2013 Overview (11/07/2016): ANXIETY STATE NOS Benign hypertension 12/17/2013 Overview (11/07/2016): BENIGN HYPERTENSION Assessment & Plan (07/13/2024 12:21 PM GUN FERTILIZER): - Above goal today - Encouraged her to monitor this at home - If elevated at next visit, consider increasing lisinopril Assessment & Plan (04/06/2024 4:05 PM CDT): Goal BP <130/80 Well controlled Continue current prescribed medication at current dose Encouraged low salt diet exercise 30mins daily and weight lose Assessment & Plan (01/06/2024 9:06 AM CDT): Pressure well controlled on lisinopril Assessment & Plan (12/29/2023 12:57 PM CDT): - Slightly above goal today - Continue Lisinopril and will continue to monitor. Was on Amlodipine in the past. - Consider increasing and/or adding another medication to further reduce blood pressure to goal <130/80 mmHg Assessment & Plan (11/18/2023 9:30 AM CDT): - Slightly above goal today - Recently stopped Amlodipine due to concerns of swelling - Continue Lisinopril and will continue to monitor. Assessment & Plan (06/08/2023 5:25 PM GUN FERTILIZER): Stop amlodipine with current issues of swelling. Pressure currently well controlled and should monitor at home Assessment & Plan (01/21/2023 9:49 AM CDT): Blood pressure well controlled on lisinopril Assessment & Plan (09/04/2022 2:34 PM GUN FERTILIZER): Blood pressure well controlled on her lisinopril. Assessment & Plan (08/02/2022 12:15 PM GUN FERTILIZER): Increase lisinopril to 20 mg daily. Monitor blood pressure at home call back if no improvement. Assessment & Plan (01/17/2022 10:21 AM CDT): Well controlled on the current regimen. Avoidance of salt, proper body weight, and routine exercise recommended. Assessment & Plan (07/17/2021 2:06 PM GUN FERTILIZER): Well controlled on the current regimen. Avoidance of salt, proper body weight, and routine exercise recommended. Assessment & Plan (04/22/2021 8:24 AM CDT): Well controlled on the current regimen. Avoidance of salt, proper body weight, and routine exercise recommended. Assessment & Plan (07/13/2020 8:34 AM GUN FERTILIZER): Well controlled on the current regimen. Avoidance of salt, proper body weight, and routine exercise recommended. Assessment & Plan (07/08/2019 8:42 AM GUN FERTILIZER): Well controlled on the current regimen. Avoidance of salt, proper body weight, and routine exercise recommended. Assessment & Plan (09/01/2018 2:21 PM GUN FERTILIZER): Blood pressure close to target, working on diet and lifestyle Assessment & Plan (07/05/2018 9:23 AM GUN FERTILIZER): Well controlled on the current regimen. Avoidance of salt, proper body weight, and routine exercise recommended. Assessment & Plan (08/26/2017 4:25 PM GUN FERTILIZER): Well controlled on the current regimen. Avoidance of salt, proper body weight, and routine exercise recommended. Anemia 12/29/2012 Extrinsic asthma 08/19/2012 Overview (06/03/2019): Description: frequent flares Assessment & Plan (08/26/2024 6:08 PM GUN FERTILIZER): Recent exacerbation due to CAP followed by RSV Symptoms improved Continue present plan and medication--albuterol prn, montelukast Assessment & Plan (07/13/2020 8:36 AM GUN FERTILIZER): Doing well on her Symbicort. Okay to discontinue and use albuterol only as needed. Restart Symbicort if uses her albuterol more than 2 times a week. Sleep apnea syndrome 04/01/2012 Overview (11/12/2017): Description: CPAP Assessment & Plan (01/06/2024 9:08 AM CDT): Patient is compliant with the CPAP machine and gets symptomatic relief. Assessment & Plan (08/02/2022 12:15 PM GUN FERTILIZER): Patient is compliant with the CPAP machine and gets symptomatic relief. Assessment & Plan (07/17/2021 2:06 PM GUN FERTILIZER): Repeat sleep study confirmed obstructive sleep apnea and waiting on insurance and supplier for her new APAP machine. Assessment & Plan (04/22/2021 8:25 AM CDT): Repeat sleep study to ensure continued presence of obstructive sleep apnea. Then order a new APAP machine and supplies. Call back if hypersomnia does not improve. Also call back if her leg twitching does not resolve with her new machine and may warrant treatment of restless leg syndrome. Assessment & Plan (07/13/2020 8:34 AM GUN FERTILIZER): Patient is compliant with the CPAP machine and gets symptomatic relief. Assessment & Plan (07/08/2019 8:42 AM GUN FERTILIZER): Patient is compliant with the CPAP machine and gets symptomatic relief. Female infertility associated with anovulation 0 09/21/2011 Resolved Problems Problem Noted Date Diagnosed Date Resolved Date Lymphedema 04/06/2024 08/26/2024 Assessment & Plan (04/06/2024 4:13 PM CDT): Chronic leg cellulitis with noted swelling, edema and discoloration Discussed order for occupational therapy for leg wrapping techniques, exercises, and physical health of legs to prevent infection and further swelling and/or damage to legs Hyperglycemia 11/18/2023 08/26/2024 Assessment & Plan (11/18/2023 8:28 AM CDT): - Glucose in clinic today is 444 mg/dL with small ketones. Given a bottle of water to drink. She is asymptomatic - no nausea/vomiting or abdominal pain. - Patient self administered 10 units of Lyumjev at 1:42 pm. - Upon sugar recheck, her blood sugar was 450 mg/dL and urine was still positive for small ketones. - Consulted plan with Dr. Mccullough. - Offered to send her to the ER, she declined. - Advised that since she is a Type 2 diabetic, she is less at risk for DKA. Counseled to keep drinking water, to take Semglee when she gets home, to monitor her blood sugars closely, and take additional corrective short acting in 2-3 hours if her blood sugars do not start to go down. Advised that if her high blood sugars do not resolve, if she starts feeling ill, develops nausea/vomiting and/or abdominal pain to go to the ED. Patient demonstrates understanding and is in agreement. Cellulitis 06/08/2023 08/26/2024 Assessment & Plan (04/06/2024 4:13 PM CDT): Chronic leg cellulitis with noted swelling, edema and discoloration Discussed order for occupational therapy for leg wrapping techniques, exercises, and physical health of legs to prevent infection and further swelling and/or damage to legs Assessment & Plan (06/15/2023 10:47 AM GUN FERTILIZER): Improved after addition of doxycycline to her Bactrim. Call back if symptoms worsen after doxycycline runs out Assessment & Plan (06/08/2023 5:25 PM GUN FERTILIZER): Seems like cellulitis slow to improve either due to poorly-controlled diabetes or resistant bacteria to Ancef seems more likely then vasculitis. Could also have has cat scratch disease. Z-Marvel and start doxycycline. Finish prednisone taper. Will see her back in the office in 1 week. Depending on her course, may need Dermatology/rheumatology evaluation for vasculitis if does not fully improve with the above therapy. Dyslipidemia 06/03/2019 07/13/2020 Healthcare maintenance 08/26/201708/26 Assessment & Plan (04/06/2024 4:08 PM CDT): -Pt feeling well without complaints Reviewed major chronic conditions, muscle aches, and lymphedema in legs Recommendations added Labs up to date Assessment & Plan (01/06/2024 9:08 AM CDT): Flu shot each May. Tetanus booster due July 2028.. Pneumovax completed. Consider Prevnar 20. COVID booster last done in May 2023.. Mammogram yearly. Colonoscopy due March 2027. Follow-up the cardiac care nurse for breast exam pelvic exam as they direct. Will see her back in about 6 months sooner if needed. Assessment & Plan (08/02/2022 12:17 PM GUN FERTILIZER): Flu shot each May. Tetanus booster every 10 years. Pneumovax completed. COVID booster recommended. Mammogram yearly. Colonoscopy due March 2027. Follow-up the cardiac care nurse for breast exam pelvic exam as they direct. Will see her back in 6 months with lab sooner if needed. Assessment & Plan (07/17/2021 2:08 PM GUN FERTILIZER): Flu shot each May. Tetanus booster every 10 years. Pneumovax completed. COVID vaccine completed. Mammogram yearly. Colonoscopy ordered and she should verify coverage before proceeding. Follow-up the cardiac care nurse for breast exam and pelvic exam as they direct. We will see her back in 1 year for physical and fasting lab sooner if needed. Assessment & Plan (07/13/2020 8:35 AM GUN FERTILIZER): Flu shot each May. Tetanus booster every 10 years. She has had a Pneumovax. Mammogram was abnormal back in August and she has delayed follow-up studies until now and she is urged to get her diagnostic and ultrasound studies done at her earliest convenience and she is aware of the risks posed her health with delay in proceeding. Follow-up the cardiac care nurse for breast exam and pelvic exam as they direct. We will see her back in 1 year for wellness visit fasting lab sooner if needed. Assessment & Plan (07/08/2019 8:43 AM GUN FERTILIZER): Flu shot each May. Tetanus booster every 10 years. Mammogram ordered. Will see her back in 1 year for physical and fasting lab sooner if needed. Assessment & Plan (07/05/2018 9:24 AM GUN FERTILIZER): Tetanus booster today. Flu shot each May. Mammogram ordered. Patient should follow-up the cardiac care nurse breast exam and pelvic exam. We will see her back in 1 year for wellness visit fasting lab sooner if needed. Assessment & Plan (08/26/2017 4:27 PM GUN FERTILIZER): Flu shot each May. Tetanus booster every 10 years. See her cardiac care nurse for breast exam mammogram and Pap smear is a direct. We will see her back in 1 year with fasting lab sooner if needed. Morbid obesity 08/26/2017 07/05/2018 Assessment & Plan (08/26/2017 4:28 PM GUN FERTILIZER): Patient is encouraged to lose weight with a combination of caloric reduction and increased exercise. Various strategies discussed. The long-term risks associated with continued morbid obesity discussed. Sinusitis, acute 02/04/2017 07/02/2017 Assessment & Plan (02/04/2017 4:02 PM CDT): Possibly more ethmoid sinusitis with presentation/assessment. Based on allergies and previous failed abx, recommended levaquin 500mg Qday x 10 days and flonase nasal spray Pt was advised to use OTC antihistamines, increase fluids and humidification, and mucinex OTC for alleviate of congestion and cough. Certainly, without improvement in symptoms, I advised her to f/u in office and we may complete a sinus CT Hypertension 05/13/2013 07/02/2017 Overview (11/07/2016): Hypertension Contact with or exposure to tuberculosis 03/21/2013 08/26/2024 Insomnia 08/19/2012 08/26/2024 Dyspnea 03/19/2012 08/26/2024 Overview (06/03/2019): 02/11 EKG: NSR at 92 02/11 echo (TDS): EF 55%, trace MR, PA 24 Edema 09/21/2011 08/26/2024 Immunizations Immunization Administration Dates Next Due Influenza, Quadrivalent, Rosita l Culture-based MDCK, Preservative Free, Antibiotic Free, Intramuscular 05/13/2023,05/23/2022 Influenza, Quadrivalent, Spl it, Intramuscular 05/03/2015 Influenza, Quadrivalent, Spl it, Preservative Free, Intramuscular 05/16/2020,05/07/2018 Influenza, Unspecified 05/16/2021,2020,04/22/2021(Defer red: Patient Refused),03/19/2021(Deferred: Patient Refused),05/12/2019,05/07/2017 [place] ([employer]) SARS-CoV-2 Vaccination 10/05/2020 Pneumococcal Conjugate Pcv20 04/06/2024 Pneumococcal Polysaccharide PPV23 08/03/2010, Td, adsorbed 07/05/2018 Tdap 10/04/2007 Social History Tobacco Use Types Packs/Day Years Used Date Smoking Tobacco: Never Cigarettes Smokeless Tobacco: Never Tobacco Cessation:Counseling Given: Not Answered Alcohol Use Standard Drinks/Week Comments No 0 [...] on file Legal Sex Female 11:54 PM GUN FERTILIZER Gender Identity Female 09/19/2020 8:37 AM GUN FERTILIZER Sexual Orientation Straight 09/19/2020 8: 37 AM GUN FERTILIZER Last Filed Vital Signs Vital Sign Reading Time Taken Comments Blood Pressure 124/88 08/23/2024 10:35 AM GUN FERTILIZER Pulse 91 08/23/2024 10:35 AM GUN FERTILIZER Temperature 36.5 C (97.7 F) 08/23/2024 10:35 AM GUN FERTILIZER Respiratory Rate 24 08/23/2024 10:35 AM GUN FERTILIZER Oxygen Saturation 98% 08/23/2024 10:35 AM GUN FERTILIZER Inhaled Oxygen Concentration - - Weight 138 kg (304 lb 3.8 oz) 08/23/2024 10:35 A M GUN FERTILIZER Height 167.6 cm (5' 6 ) 08/23/2024 10:35 AM GUN FERTILIZER Body Mass Index 49.1 08/23/2024 10:35 AM GUN FERTILIZER Plan of Treatment Not on file Procedures Procedure Name Priority Date/Time Associated Diagnosis Comments POCT HEMOGLOBIN A1C Routine 07/13/2024 9 :08 AM GUN FERTILIZER Uncontrolled type 2 diabetes mellitus with hyperglycemia (HCC) POCT GLUCOSE [id number] Routine 07/13/2024 9: 08 AM GUN FERTILIZER Uncontrolled type 2 diabetes mellitus with hyperglycemia (HCC) COMPREHENSIVE METABOLIC PANEL Routine 12/29/2023 1:40 PM CDT Benign hypertension Mixed hyperlipidemia LIPID PANEL Routine 12/29/2023 12:26 PM CDT Uncontrolled type 2 diabetes mellitus with hyperglycemia (HCC) Mixed hyperlipidemia ALBUMIN CREATININE RATIO, URINE Routine 12/29/2023 12:26 PM CDT Uncontrolled type 2 diabetes mellitus with hyperglycemia (HCC) SCREENING MAMMOGRAM BILATERAL W [facility] Schedule Routine, Read Routine (OP Routine) 12/29/2023 9:26 AM CDT Screening mammogram for breast cancer DIABETIC EYE EXAM Routine 11/10/2022 COLONOSCOPY 04/02/2022 9:28 AM CDT DIABETIC FOOT EXAM Routine 03/26/2021 from Last 3 Months or Most Recently Relevant to Health Maintenance Results * POCT glucose (07/13/2024 9:08 AM GUN FERTILIZER) Glucose Blood, POC 161 mg/dL Blood 07/13/2024 9:08 AM GUN FERTILIZER Shirley CHUN POINT OF CARE TEST ORDERA BLES Final Result * POCT hemoglobin A1c (07/13/2024 9:08 AM GUN FERTILIZER) Pathologist [facility] [place] Hemoglobin A1C, POC 11.7 4.0 - 5.6 % Blood 07/13/2024 9:08 AM GUN FERTILIZER Shirley CHUN POINT OF CARE TEST ORDERA BLES Final Result * (ABNORMAL) Comprehensive metabolic panel (12/29/2023 1:40 PM CDT) Pathologist [facility] [place] Glucose 121(H) 65 - 99 mg/dL [facility] Comment: Fasting reference interval For someone without known diabetes, a glucose value between 100 and 125 mg/dL is consistent with prediabetes and should be confirmed with a follow-up test. BUN 15 7 - 25 mg/dL [facility] [employer] ian Sheehan Creatinine 0.69 0.50 - 0.99 mg/dL [facility] [employer] ian Sheehan eGFR 108 > OR = 60 mL/min/1.7 3m2 [employer] ian Sheehan BUN/creat ratio SEE NOTE: 6 - 22 (calc) [employer] ian Sheehan Comment: Not Reported: BUN and Creatinine are within reference range. Sodium 138 135 - 146 mmol/L [employer] ian Sheehan Potassium, pl 4.1 3.5 - 5.3 mmol/L [employer] ian Sheehan Chloride 97(L) 98 - 110 mmol/L [facility] CO2 30 20 - 32 mmol/L [facility] Calcium 9.7 8.6 - 10.2 mg/dL [facility] [employer] ian Sheehan Protein, sr 7.0 6.1 - 8.1 g/dL [facility] Albumin 4.3 3.6 - 5.1 g/dL [facility] GLOBULIN 2.7 1.9 - 3.7 g/dL (calc) [facility] [employer] ian Sheehan Alb/glob ratio 1.6 1.0 - 2.5 (calc) [facility] Bilirubin, total 0.6 0.2 - 1.2 mg/dL [facility] [employer] ian Sheehan Alk phos 46 31 - 125 U/L [employer] ian Sheehan AST 13 10 - 35 U/L [facility] ian Sheehan ALT (SGPT) 32(H) 6 - 29 U/L [facility] ian Sheehan Blood 12/29/2023 1:40 PM CDT 12/29/2023 1:42 PM CDT Narrative [facility] - 12/30/2023 3:37 PM CDT FASTING:YES FASTING: YES Kishor Saleh MD LAB BLOOD ORDERABLES Final R esult Performing Organization Address City/[facility]/ZIP Co de Phone Number [facility] [address] [place] [address] * Albumin Creatinine Ratio, Urine (12/29/2023 12:26 PM CDT) Albumin Ur 14.1 mg/L Comment: Interpretive Data No reference range established. Current interpretive data was last revised 2018. Creatinine Ur 117.0 mg/dL [facility] Comment: Interpretive Data No reference range established. Current interpretive data was last revised 2018. Albumin Creatinine Ratio, Ur 12 1 - 29 mg/g [facility] Urine 12/29/2023 12:2 6 PM CDT 12/29/2023 1:04 PM CDT Shirley CHUN LAB URINE ORDERABLES Flora l Result Performing Organization Address [facility] Co de Phone Number [facility] Department [place] [address] * (ABNORMAL) Lipid panel (12/29/2023 12:26 PM CDT) Cholesterol 208(H) 30 - 199 mg/dL Comment: Interpretive Data Ages < or = 19 years Acceptable: <170 mg/dL Borderline high: 170-199 mg/dL High: >or= 200 mg/dL Ages > or = 20 years Desirable: <200 mg/dL Borderline high: 200-239 mg/dL High: >or= 240 mg/dL Literature References: 1. Expert Panel on Integrated Guidelines for Cardiovascular Health and Risk Reduction in Children and Adolescents. Pediatrics 2011;128:S213 2. NCEP Expert Panel. Circulation 2004;110:227 Current Interpretive Data was last revised on 2018. Triglycerides 265(H) <=149 mg/dL [facility] Comment: Interpretive Data Ages < or = 9 years Acceptable: <75 mg/dL Borderline high: 75-99 mg/dL High: >or= 100 mg/dL Ages 10 to 20 years Acceptable: <90 mg/dL Borderline high: 90-129 mg/dL High: >or= 130 mg/dL Ages > or = 20 years Desirable: <150 mg/dL Borderline high: 150-199 mg/dL High: 200-499 mg/dL Very high: >or= 499 mg/dL Literature References: 1. Expert Panel on Integrated Guidelines for Cardiovascular Health and Risk Reduction in Children and Adolescents. Pediatrics 2011;128:S213 2. NCEP Expert Panel. Circulation 2004;110:227 Current Interpretive Data was last revised on 2018. HDL 87 >=40 mg/dL [facility] Comment: Interpretive Data Ages < or = 19 years Acceptable: >45 mg/dL Borderline low: 40-45 mg/dL Low: <40 mg/dL Ages > or = 20 years Desirable: >or= 60 mg/dL Low: <40 mg/dL Literature References: 1. Expert Panel on Integrated Guidelines for Cardiovascular Health and Risk Reduction in Children and Adolescents. Pediatrics 2011;128:S213 2. NCEP Expert Panel. Circulation 2004;110:227 Current Interpretive Data was last revised on 2018. LDL, calculated 68 <=129 mg/dL [facility] Comment: Interpretive Data Ages < or = 19 years Acceptable: <110 mg/dL Borderline high: 110-129 mg/dL High: >or= 130 mg/dL Ages > or = 20 years Optimal: <100 mg/dL Near optimal: 100-129 mg/dL Borderline high: 130-159 mg/dL High: >160 mg/dL Literature References: 1. Expert Panel on Integrated Guidelines for Cardiovascular Health and Risk Reduction in Children and Adolescents. Pediatrics 2011;128:S213 2. NCEP Expert Panel. Circulation 2004;110:227 Current Interpretive Data was last revised on 2018. Non-HDL Cholesterol 121 mg/dL [facility] Comment: Interpretive Data Ages < or = 19 years Acceptable: <120 mg/dL Borderline high: 120-144 mg/dL High: >145 mg/dL Ages > or = 20 years When triglycerides are >200 mg/dL, Non-HDL cholesterol is a secondary target of therapy with treatment goals that are 30 mg/dL greater than the LDL cholesterol target. Literature References: 1. Expert Panel on Integrated Guidelines for Cardiovascular Health and Risk Reduction in Children and Adolescents. Pediatrics 2011;128:S213 2. NCEP Expert Panel. Circulation 2004;110:227 Current Interpretive Data was last revised on 2018. Chol/HDL ratio 2 [facility] Blood 12/29/2023 12:2 6 PM CDT 12/29/2023 1:04 PM CDT Shirley CHUN LAB BLOOD ORDERABLES Flora dowd Result [facility] Department [place] [address] * Screening Mammogram Bilateral W Vincenzo (12/29/2023 9:26 AM CDT) Anatomical Region Laterality Modality Breast Bilateral Mammography Narrative 12/30/2023 2:01 PM CDT Mammogram Technique: Bilateral Digital Breast Tomosynthesis, Bilateral C-view 2D Screening mammogram. Views obtained: bilateral craniocaudal and bilateral mediolateral oblique. Computer Aided Detection was performed. Mammogram Findings: The present examination has been compared to prior imaging studies performed at [facility] on 01/01/2022 and 02/25/2023, and at [facility]. [place], [place] on 09/12/2020. There are scattered areas of fibroglandular density. There is no suspicious abnormality in either breast. Impression: There is no mammographic evidence of malignancy. Annual screening mammography is recommended. OVERALL FINAL ASSESSMENT: BI-RADS CATEGORY 1: Negative. Procedure Note Vanna Mancia MD - 12/30/2023 Mammogram Technique: Bilateral Digital Breast Tomosynthesis, Bilateral C-view 2D Screening mammogram. Views obtained: bilateral craniocaudal and bilateral mediolateral oblique. Computer Aided Detection was performed. Mammogram Findings: The present examination has been compared to prior imaging studies performed at [facility] on 01/01/2022 and 02/25/2023, and at [facility]. [place], [place] on 09/12/2020. There are scattered areas of fibroglandular density. There is no suspicious abnormality in either breast. Impression: There is no mammographic evidence of malignancy. Annual screening mammography is recommended. OVERALL FINAL ASSESSMENT: BI-RADS CATEGORY 1: Negative. Kishor Saleh MD IMG MAMMO PROCEDURES Final R esult * Diabetic Eye Exam (11/10/2022) us Generic External Data Provider [facility] MA[facility] E Final Result * COLONOSCOPY (04/02/2022 9:28 AM CDT) Anatomical Region Laterality Modality Other Narrative Procedure Note Ad Camacho MD - 04/02/2022 9:28 AM CDT [facility] Patient Name: Camila Huitron Procedure Date: 04/02/2022 9:28 AM Date of : 1975 Admit Type: Outpatient Age: 46 Gender: Female Attending MD: Ad Camacho M.D. Room: [facility] ENDOSCOPY [facility]OM 2 Note Status: Finalized Patient Profile: This is a 46 year old female hx o HTN, morbidobesity, HLD, IDDM2 here for colon cancer screening. Noprior colonoscopies and no family hx of colon cance Procedure: Colonoscopy Indications: Screening for colorectal malignant neoplasm, Thisis the patient's first colonoscopy Referring MD: Kishor Saleh M.D. Providers: Ad Camacho M.D. Impression: - Two 3 to 4 mm polyps in the transverse colon, removed with a jumbo cold forceps. Resected and retrieved. - Three 3 to 4 mm polyps in the descending colon, removed with a jumbo cold forceps. Resected and retrieved. - One 3 mm polyp in the rectum, removed with ajumbo cold forceps. Resected and retrieved. - The distal rectum and anal verge are normal on retroflexion view. Recommendation: - Patient has a contact number available for emergencies. The signs and symptoms of potential delayed complications were discussed with thepatient. Return to normal activities tomorrow. Written discharge instructions were provided to thepatient. - Discharge patient to home (with escort). - Resume previous diet. - Continue present medications. - Await pathology results. - Repeat colonoscopy for surveillance based on pathology results. - Return to primary care physician as previously scheduled. Medicines: Monitored Anesthesia Care Complications: No immediate complications. Estimated Blood Loss: Estimated blood loss was minimal. Procedure: Pre-Anesthesia Assessment: - Prior to the procedure, a History and Physicalwas performed, and patient medications and allergieswere reviewed. The patient is competent. The risks and benefits of the procedure and the sedation optionsand risks were discussed with the patient. Allquestions were answered and informed consent was obtained. Patient identification and proposed procedure were verified by the physician, the nurse and the anesthesiologist in the endoscopy suite. MentalStatus Examination: normal. Prophylactic Antibiotics: The patient does not require prophylactic antibiotics. Prior Anticoagulants: The patient has taken no anticoagulant or antiplatelet agents. ASA Grade Assessment: II - A patient with mild systemicdisease. After reviewing the risks and benefits, the patient was deemed in satisfactory condition to undergo the procedure. The anesthesia plan was to use monitored anesthesia care (MAC). Immediately prior to administration of medications, the patient was re-assessed for adequacy to receive sedatives. The heart rate, respiratory rate, oxygen saturations, blood pressure, adequacy of pulmonary ventilation,and response to care were monitored throughout the procedure. The physical status of the patient was re-assessed after the procedure. The benefits, risks and alternatives of theprocedure and sedation were discussed and informed consentwas obtained. All questions were answered. Please referto the signed informed consent document in the medical record. The bowel preparation used was Miralax via split dose instruction. The bowel preparation usedwas bisacodyl tablets via split dose instruction. The scope was passed under direct vision. TheColonoscope [id number] was introduced through the anus and advanced to the the cecum, identified by appendiceal orifice and ileocecal valve. Thequality of the bowel preparation was good. Bowel prep was administered using a split dose. Findings: The perianal and digital rectal examinations were normal. Two sessile polyps were found in the transverse colon. The polypswere 3 to 4 mm in size. These polyps were removed with a jumbo cold forceps. Resection and retrieval were complete. Three sessile polyps were found in the descending colon. The polypswere 3 to 4 mm in size. These polyps were removed with a jumbo coldforceps. Resection and retrieval were complete. A 3 mm polyp was found in the rectum. The polyp was sessile. Thepolyp was removed with a jumbo cold forceps. Resection and retrieval were complete. The retroflexed view of the distal rectum and anal verge was normaland showed no anal or rectal abnormalities. Ad Camacho M.D. 04/02/2022 12:04:38 PM Number of Addenda: 0 Note Initiated On: 04/02/2022 9:28 AM Procedure Code(s): --- Professional --- 32031, Colonoscopy, flexible; with biopsy, single or multiple Diagnosis Code(s): --- Professional --- Z12.11, Encounter for screening for malignant neoplasm of colon D12.3, Benign neoplasm of transverse colon (hepatic flexure orsplenic flexure) D12.4, Benign neoplasm of descending colon D12.8, Benign neoplasm of rectum CPT copyright 2020 [employer]. All rights reserved. The codes documented in this report are preliminary and upon vegetable farmworker reviewmay be revised to meet current compliance requirements. Recognized by the [place] [employer] for promoting quality in endoscopy Ad Camacho MD ENDOSCOPY PROCEDURES Final Resul t * Diabetic Foot Exam (03/26/2021) Impressions Art Staley MA - 03/26/2021 In care everywhere Historical Provider HEALTH MAINTENANCE Final Result from Last 3 Months or Most Recently Relevant to Health Maintenance Insurance [employer] [facility] H[facility]/PPO Address: [address] [address] [place] [address] [facility]/PPO Address: [address] [address] Advance Directives For more information, please contact: [phone] * Full Code (Latest Code Status on File) Date Activated Date Inactivated Comments 04/02/2022 9:27 AM 04/02/2022 4:47 PM * Full Code Date Activated Date Inactivated Comments 04/02/2022 9:27 AM 04/02/2022 9:27 AM Care Teams Manager Flight Operations Relationship Specialty [place] [id number] [facility] [address] [place] [address] PCP - General Internal Medicine 04/06/24 Ann Serrano MD Referring Physician Endocrinology Diabetes & Metabolism 06/08/20
--- OUTSIDE RECORDS SUMMARY | 2024-09-22 19:55 | XMS_ITS | Clinical Summary ---
Author Organization [facility] Office Building A Address [address] [place] [address] Care Team Providers Care Manager Hi Name Role Phone Ann Serrano MD Unavailable [phone] Lynn Rodriguez MD Primary Care Provider Allergies Active Allergy Reactions Criticality Noted Date [...] with hyperglycemia (HCC) 45 units twice daily Active LYUMJEV 100 unit/mL pen for injectionIndicat ions:Uncontrolle d type 2 diabetes mellitus with hyperglycemia (HCC) Inject 15 units before meals plus sliding scale 1 unit for every 25 points >150 ; MDD is 55 units. 08/08/2 024 Active predniSONE (DELTASONE) 10 mg tablet Active traMADoL (ULTRAM) 50 mg tablet Take 1 tablet (50 mg total) by mouth every 8 (eight) hours as needed for pain 30 tablet Active ergocalciferol (Vitamin D2) 50,000 unit capsule TAKE 1 CAPSULE BY MOUTH TWICE A WEEK 26 capsule 1 024 Active venlafaxine XR (EFFEXOR-XR) 150 mg 24 hr capsule Take 1 capsule (150 mg total) by mouth daily 30 capsule 024 Active Protonix 40 mg EC tablet 024 Active pamabrom (DIUREX MAX ORAL) 024 Active gabapentin (NEURONTIN) 300 mg capsule 024 Active folic acid (FOLVITE) 1 mg tablet [...] s:Uncontrolled type 2 diabetes mellitus with hyperglycemia (HCC),snf (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) Use for [...] package instructions on package for 6 days. 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 07/13/2024 Assessment & Plan (07/13/2024 12:22 PM STATUARY PAINTER): - Further complicates diabetes management Need for vaccination 04/06/2024 Assessment & Plan (04/06/2024 4:14 PM CDT): Received pneumonia vaccine today history of pneumonia currently no complaints last bout in 08/2023 Head trauma 09/04/2022 Assessment & Plan (09/04/2022 2:35 PM STATUARY PAINTER): No signs of neurological abnormality on examination [...] booster Assessment & Plan (06/24/2021 3:28 PM STATUARY PAINTER): Pito vaccine 10/05/2020 and Moderna booster Jun 2021 Major depressive disorder 04/22/2021 Assessment & Plan (01/06/2024 9:09 AM CDT): Stable on current medication regimen. Assessment & Plan (01/17/2022 10:21 AM CDT): Stable on current medication regimen. Assessment & Plan (07/17/2021 2:07 PM STATUARY PAINTER): Better controlled on venlafaxine. Assessment & Plan (04/22/2021 8:25 AM CDT): Restart venlafaxine and warned of side effects and call back if any develop or if no improvement. Type 2 diabetes mellitus with hyperlipidemia 06/2020 Assessment & Plan (01/06/2024 9:09 AM CDT): A1c above goal. Will start Mounjaro soon. Continue other medications as directed by her flyer repairer. Diet exercise discussed. Hopefully may be able to wean prednisone in the near future as well. Assessment & Plan (06/15/2023 10:48 AM STATUARY PAINTER): She knows that the steroids will exacerbate her hyperglycemia and should be in contact with her flyer repairer for management. Assessment & Plan (06/08/2023 5:26 PM STATUARY PAINTER): Poor control of her diabetes prior to this hospitalization and even worse now on prednisone. Follow-up with her flyer repairer for management. Diet exercise weight loss recommended. Assessment & Plan (01/21/2023 9:50 AM CDT): Blood sugars remain above goal. Hopefully the recent addition of mounjaro will help significantly. Discuss up titration of this and her mealtime insulin with her flyer repairer. Diet exercise discussed. Check A1c and fasting blood sugar before next visit. Assessment & Plan (08/02/2022 12:16 PM STATUARY PAINTER): A1c poorly controlled. Importance of diet exercise weight loss discussed at length. Continue her Ozempic and insulin and needs to contact her flyer repairer soon as possible for guidance on further therapy. Assessment & Plan (01/17/2022 10:22 AM CDT): Patient aware A1c grossly uncontrolled. Must work on diet exercise and weight loss. She has to get back on her insulin and should discuss this today with her flyer repairer. Risks posed her health with poor glycemic control discussed. Assessment & Plan (07/13/2020 8:34 AM STATUARY PAINTER): A1c above goal. Importance of diet exercise weight loss discussed. Continue current medication regimen and follow-up with her flyer repairer as they direct. 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 Unfortunately lab work and skin biopsy inconclusive. Discussed possible rheumatology 2nd opinion here at [facility] and patient will call back if desired. Assessment & Plan (06/15/2023 10:48 AM STATUARY PAINTER): Certainly making a case for underlying vasculitis [...] condition. Assessment & Plan (06/20/2020 9:35 AM STATUARY PAINTER): Unclear etiology but I am thinking of [...] 07/08/2019 Assessment & Plan (08/26/2024 6:10 PM STATUARY PAINTER): Body mass index is 49.1 kg/m . BMI Follow-up includes: nutrition counseling, exercise counseling, and education provided. Assessment & Plan (07/13/2024 12:20 PM STATUARY PAINTER): - Increase Mounjaro to 10 mg weekly [...] tolerated. Assessment & Plan (06/08/2023 5:23 PM STATUARY PAINTER): Patient is encouraged to lose weight with a combination of caloric reduction and increased exercise. Various strategies discussed. The long-term risks associated with continued morbid obesity discussed. Assessment & Plan (09/04/2022 2:34 PM STATUARY PAINTER): Patient is encouraged to lose weight with a combination of caloric reduction and increased exercise. Various strategies discussed. The long-term risks associated with continued morbid obesity discussed. Assessment & Plan (08/02/2022 12:16 PM STATUARY PAINTER): Patient is encouraged to lose weight with [...] discussed. Assessment & Plan (07/13/2020 8:34 AM STATUARY PAINTER): Patient is encouraged to lose weight with a combination of caloric reduction and increased exercise. Various strategies discussed. The long-term risks associated with continued morbid obesity discussed. Assessment & Plan (06/20/2020 9:35 AM STATUARY PAINTER): Patient is encouraged to lose weight with a combination of caloric reduction and increased exercise. Various strategies discussed. The long-term risks associated with continued morbid obesity discussed. Assessment & Plan (07/08/2019 8:44 AM STATUARY PAINTER): Patient is encouraged to lose weight with a combination of caloric reduction and increased exercise. Various strategies discussed. The long-term risks associated with continued morbid obesity discussed. Irregular menses 06/03/2019 Allergic rhinitis 07/05/2018 Assessment & Plan (02/23/2023 1:30 PM CDT): Nasal saline spray (Simply saline, [employer] Remedies, [place], [place]) 2 second sprays or 2 squeezes into [...] daily Assessment & Plan (07/17/2021 2:07 PM STATUARY PAINTER): Claritin montelukast. Assessment & Plan (04/22/2021 8:25 AM CDT): Currently using Claritin and montelukast. She has not been trying Flonase as her nose is being to congested. Recommended sinus rinses her using a hot warm shower. Could also try Afrin for few days. Assessment & Plan (07/08/2019 8:43 AM STATUARY PAINTER): Add montelukast to her Claritin. She struggles with nasal sprays due to chronic congestion. Assessment & Plan (07/05/2018 9:24 AM STATUARY PAINTER): Try Afrin for 3 days along with initiating fluticasone. Stop Afrin in3 days and continue fluticasone indefinitely. continue Zyrtec. Mixed hyperlipidemia 07/02/2017 Assessment & Plan (07/13/2024 12:21 PM STATUARY PAINTER): - Last LDL 103, TG 308, TC [...] triglycerides. Assessment & Plan (09/12/2023 8:12 PM STATUARY PAINTER): Continue statin and optimize glycemic control Assessment & Plan (02/16/2023 8:14 PM CDT): Continue statin and optimize glycemic control Assessment & Plan (01/21/2023 9:50 AM CDT): Continue her atorvastatin and work on diet exercise and check lipids and LFTs before next visit. Assessment & Plan (08/02/2022 12:15 PM STATUARY PAINTER): Well controlled on current therapy and will check a lipid panel and LFTs in 6 months. Assessment & Plan (01/17/2022 10:21 AM CDT): Well controlled on current therapy and will check a lipid panel and LFTs in 6 months. Assessment & Plan (07/17/2021 2:06 PM STATUARY PAINTER): Well controlled on current therapy and will check a lipid panel and LFTs in 6 months. Assessment & Plan (06/24/2021 3:28 PM STATUARY PAINTER): Continue statin and optimize glycemic control Assessment & Plan (12/19/2020 7:53 AM CDT): Continue statin and optimize glycemic control Assessment & Plan (07/13/2020 8:34 AM STATUARY PAINTER): Well controlled on current therapy and will check a lipid panel and LFTs in 6 months. Assessment & Plan (06/08/2020 8:31 AM STATUARY PAINTER): LDL within goal. Continue statin and optimize glycemic control Assessment & Plan (07/08/2019 8:42 AM STATUARY PAINTER): Well controlled on current therapy and will check a lipid panel and LFTs in 12 months. Assessment & Plan (09/01/2018 2:22 PM STATUARY PAINTER): Continue statin, optimize glycemic control Assessment & Plan (07/05/2018 9:23 AM STATUARY PAINTER): Well controlled on current therapy and will check a lipid panel and LFTs in 6 months. Assessment & Plan (08/26/2017 4:27 PM STATUARY PAINTER): Start atorvastatin and check lipids and LFTs in 3-4 months. Call back for results. Vitamin D deficiency 07/02/2017 Assessment & Plan (07/13/2024 12:22 PM STATUARY PAINTER): - Last Vitamin D 42 (12/2023), replete [...] week Assessment & Plan (09/12/2023 8:12 PM STATUARY PAINTER): Continue long-term supplement Assessment & Plan (02/16/2023 8:14 PM CDT): Continue long-term supplement Assessment & Plan (08/02/2022 12:15 PM STATUARY PAINTER): Continue current supplementation and check level in 1 year. Assessment & Plan (07/17/2021 2:06 PM STATUARY PAINTER): Continue current supplementation and check level in 1 year. Assessment & Plan (06/24/2021 3:29 PM STATUARY PAINTER): Continue long-term supplement Assessment & Plan (12/19/2020 7:53 AM CDT): Continue long-term supplement Assessment & Plan (07/13/2020 8:33 AM STATUARY PAINTER): Continue current supplementation and check level in 1 year. Assessment & Plan (06/08/2020 8:31 AM STATUARY PAINTER): Vitamin-D level within goal, continue chronic supplement Assessment & Plan (07/08/2019 8:42 AM STATUARY PAINTER): Continue current supplementation and check level in 1 year. Assessment & Plan (06/03/2019 8:24 AM CDT): Recently ran out of supplement, so we will restart and check her level today. Also check B12 Assessment & Plan (09/01/2018 2:22 PM STATUARY PAINTER): Continue supplement Assessment & Plan (07/05/2018 9:23 AM STATUARY PAINTER): Continue current supplementation and check level in 1 year. Assessment & Plan (08/26/2017 4:26 PM STATUARY PAINTER): Continue current supplementation and check level in 1 year. Uncontrolled type 2 diabetes mellitus with hyper glycemia 03/24/2016 Overview (07/05/2018): Cannot tolerate metformin, glipizide due to nausea/vomiting; Invokana works better than jardiance. Does not tolerate acarbose Assessment & Plan (08/26/2024 6:10 PM STATUARY PAINTER): Assessment & Plan (07/13/2024 12:20 PM STATUARY PAINTER): - Diabetes is complicated by hyperlipidemia, hypertension, morbid obesity and chronic steroid use. Uncontrolled. Lab Results Component Value Date HGBA1C 11.7 07/13/2024 Per [place] [employer], goal A1c is less 7% [...] in prescriptions for both Dexcom G7 and Buzzoo Silva 3 CGM for olivares checking. Also [...] Return visit 3 months to see the INSTALLATION SUPERINTENDENT/PA, 6 months to see me. Assessment & [...] Component Value Date HGBA1C 12.5 11/17/2023 Per [place] [employer], goal A1c is less 7% [...] that I am available via phone or Emtricshart if they have any concerns for hypo/hyperglycemia, medication refills, etc. Assessment & Plan (11/18/2023 8:23 AM CDT): - Diabetes is complicated by HTN, HLD, steroid use, hyperglycemia and obesity. Uncontrolled. Lab Results Component Value Date HGBA1C 12.5 11/17/2023 Per [place] [employer], goal A1c is less 7% without significant hypoglycemia. - Management Goal: re-start and adherence to medication regimen - Continue current medication regimen at this time. - Patient called local pharmacy to confirm that they do have prescriptions for her Semglee. She is going to pickle pumper today after this visit. - Insurance does [...] etc. Assessment & Plan (09/12/2023 8:13 PM STATUARY PAINTER): Very high glucoses; multifactorial including steroid therapy, [...] daily. Assessment & Plan (06/24/2021 3:29 PM STATUARY PAINTER): Much improved but needs a little more basal insulin. Assessment & Plan (12/19/2020 7:53 AM CDT): Multiple medications, but now requires insulin. We can gradually adjust her Lantus based on her clinical response. Assessment & Plan (06/08/2020 8:32 AM STATUARY PAINTER): Glucoses somewhat better now that she is [...] motivator. Assessment & Plan (07/08/2019 8:43 AM STATUARY PAINTER): Continue increased dose of Ozempic and also continue Invokana. Importance of dietary changes increase exercise weight loss discussed. Follow-up with her flyer repairer as they direct. Assessment & Plan (06/03/2019 8:25 AM CDT): Somewhat suboptimal, would benefit from increasing Ozempic and continuing efforts with diet and lifestyle. Needs follow-up labs Assessment & Plan (09/01/2018 2:22 PM STATUARY PAINTER): Glucoses a little high, but she has bruising with Victoza so she may benefit by changing to weekly Ozempic, which is a little stronger, as well. Jardiance is been ineffective, so we may need to provide preauthorization for Invokana Assessment & Plan (07/05/2018 9:23 AM STATUARY PAINTER): A1c above goal. We stressed importance of increased exercise, reduce calories, weight loss. Could consider switching Victoza to ozempic. Otherwise does not tolerate metformin or sulfonylureas. May need insulin soon. She is directed to follow up with her flyer repairer more quickly than her next scheduled appointment in November. Assessment & Plan (08/26/2017 4:26 PM STATUARY PAINTER): Continue current medication regimen and follow up with her flyer repairer as they direct. Low carb diet weight loss recommended. Check blood sugars once daily. Start atorvastatin and check lipids and LFTs in 3-4 months. Anxiety state 12/17/2013 Overview (11/07/2016): ANXIETY STATE NOS Benign hypertension 12/17/2013 Overview (11/07/2016): BENIGN HYPERTENSION Assessment & Plan (07/13/2024 12:21 PM STATUARY PAINTER): - Above goal today - Encouraged her [...] monitor. Assessment & Plan (06/08/2023 5:25 PM STATUARY PAINTER): Stop amlodipine with current issues of swelling. Pressure currently well controlled and should monitor at home Assessment & Plan (01/21/2023 9:49 AM CDT): Blood pressure well controlled on lisinopril Assessment & Plan (09/04/2022 2:34 PM STATUARY PAINTER): Blood pressure well controlled on her lisinopril. Assessment & Plan (08/02/2022 12:15 PM STATUARY PAINTER): Increase lisinopril to 20 mg daily. Monitor blood pressure at home call back if no improvement. Assessment & Plan (01/17/2022 10:21 AM CDT): Well controlled on the current regimen. Avoidance of salt, proper body weight, and routine exercise recommended. Assessment & Plan (07/17/2021 2:06 PM STATUARY PAINTER): Well controlled on the current regimen. Avoidance of salt, proper body weight, and routine exercise recommended. Assessment & Plan (04/22/2021 8:24 AM CDT): Well controlled on the current regimen. Avoidance of salt, proper body weight, and routine exercise recommended. Assessment & Plan (07/13/2020 8:34 AM STATUARY PAINTER): Well controlled on the current regimen. Avoidance of salt, proper body weight, and routine exercise recommended. Assessment & Plan (07/08/2019 8:42 AM STATUARY PAINTER): Well controlled on the current regimen. Avoidance of salt, proper body weight, and routine exercise recommended. Assessment & Plan (09/01/2018 2:21 PM STATUARY PAINTER): Blood pressure close to target, working on diet and lifestyle Assessment & Plan (07/05/2018 9:23 AM STATUARY PAINTER): Well controlled on the current regimen. Avoidance of salt, proper body weight, and routine exercise recommended. Assessment & Plan (08/26/2017 4:25 PM STATUARY PAINTER): Well controlled on the current regimen. Avoidance of salt, proper body weight, and routine exercise recommended. Anemia 12/29/2012 Extrinsic asthma 08/19/2012 Overview (06/03/2019): Description: frequent flares Assessment & Plan (08/26/2024 6:08 PM STATUARY PAINTER): Recent exacerbation due to CAP followed by RSV Symptoms improved Continue present plan and medication--albuterol prn, montelukast Assessment & Plan (07/13/2020 8:36 AM STATUARY PAINTER): Doing well on her Symbicort. Okay to discontinue and use albuterol only as needed. Restart Symbicort if uses her albuterol more than 2 times a week. Sleep apnea syndrome 04/01/2012 Overview (11/12/2017): Description: CPAP Assessment & Plan (01/06/2024 9:08 AM CDT): Patient is compliant with the CPAP machine and gets symptomatic relief. Assessment & Plan (08/02/2022 12:15 PM STATUARY PAINTER): Patient is compliant with the CPAP machine and gets symptomatic relief. Assessment & Plan (07/17/2021 2:06 PM STATUARY PAINTER): Repeat sleep study confirmed obstructive sleep apnea [...] syndrome. Assessment & Plan (07/13/2020 8:34 AM STATUARY PAINTER): Patient is compliant with the CPAP machine and gets symptomatic relief. Assessment & Plan (07/08/2019 8:42 AM STATUARY PAINTER): Patient is compliant with the CPAP machine [...] legs Assessment & Plan (06/15/2023 10:47 AM STATUARY PAINTER): Improved after addition of doxycycline to her Bactrim. Call back if symptoms worsen after doxycycline runs out Assessment & Plan (06/08/2023 5:25 PM STATUARY PAINTER): Seems like cellulitis slow to improve either [...] yearly. Colonoscopy due March 2027. Follow-up the parent aide for breast exam pelvic exam as they direct. Will see her back in about 6 months sooner if needed. Assessment & Plan (08/02/2022 12:17 PM STATUARY PAINTER): Flu shot each May. Tetanus booster every 10 years. Pneumovax completed. COVID booster recommended. Mammogram yearly. Colonoscopy due March 2027. Follow-up the parent aide for breast exam pelvic exam as they direct. Will see her back in 6 months with lab sooner if needed. Assessment & Plan (07/17/2021 2:08 PM STATUARY PAINTER): Flu shot each May. Tetanus booster every 10 years. Pneumovax completed. COVID vaccine completed. Mammogram yearly. Colonoscopy ordered and she should verify coverage before proceeding. Follow-up the parent aide for breast exam and pelvic exam as they direct. We will see her back in 1 year for physical and fasting lab sooner if needed. Assessment & Plan (07/13/2020 8:35 AM STATUARY PAINTER): Flu shot each May. Tetanus booster every 10 years. She has had a Pneumovax. Mammogram was abnormal back in August and she has delayed follow-up studies until now and she is urged to get her diagnostic and ultrasound studies done at her earliest convenience and she is aware of the risks posed her health with delay in proceeding. Follow-up the parent aide for breast exam and pelvic exam as they direct. We will see her back in 1 year for wellness visit fasting lab sooner if needed. Assessment & Plan (07/08/2019 8:43 AM STATUARY PAINTER): Flu shot each May. Tetanus booster every 10 years. Mammogram ordered. Will see her back in 1 year for physical and fasting lab sooner if needed. Assessment & Plan (07/05/2018 9:24 AM STATUARY PAINTER): Tetanus booster today. Flu shot each May. Mammogram ordered. Patient should follow-up the parent aide breast exam and pelvic exam. We will see her back in 1 year for wellness visit fasting lab sooner if needed. Assessment & Plan (08/26/2017 4:27 PM STATUARY PAINTER): Flu shot each May. Tetanus booster every 10 years. See her parent aide for breast exam mammogram and Pap smear is a direct. We will see her back in 1 year with fasting lab sooner if needed. Morbid obesity 08/26/2017 07/05/2018 Assessment & Plan (08/26/2017 4:28 PM STATUARY PAINTER): Patient is encouraged to lose weight with [...] trace MR, PA 24 Edema 09/21/2011 08/26/2024 Encounters Date Type Department Care Team Description 09/09/2024 Documentation [facility] Services at [address] [address] Tiffanie Cantu, PT PT Discharge 09/02/2024 Telephone [facility] Services at [address] [address] Tiffanie Cantu, PT Cancel 08/30/2024 Telephone [facility] Services at [address] [address] Ele Vazquez, PT Cancel 08/24/2024 Telephone [facility] [address] [phone] Yuki Mccain RN 08/23/2024 11:00 AM STATUARY PAINTER Office Visit [facility] Primary Care - [address] [phone] Lynn Rodriguez MD Mild intermittent extrinsic asthma without complication (Primary Dx); Impaired mobility; Acute hypoxic respiratory failure (HCC); History of respiratory syncytial virus (RSV) vaccination; Class 3 severe obesity due to excess calories with serious comorbidity and body mass index (BMI) of 45.0 to 49.9 in adult (HCC) 08/19/2024 Telephone [facility] Services [address] [place] [id number] Sarah Baird, JOSHUA Medical Question/Miscellane ous 08/19/2024 Telephone [facility] [address] [address] Sarah Baird, RN 08/18/2024 Telephone [facility] [address] [place] [address] Sarah Baird, RN 08/17/2024 Telephone [facility] [address] [place] [phone] Sarah Baird, RN 08/09/2024 Orders Only [facility] Endocrinology Metabolism and Lipid [address] [facility] 13th [place] [address] [place] [phone] Stephanie Sandoval RMA Uncontrolled type 2 diabetes mellitus with hyperglycemia (HCC) 08/09/2024 Telephone [facility] Services at [address] [address] Ele Vazquez, PT Cancel 08/05/2024 Telephone [facility] Services at [address] [address] Ele Vazquez, PT Cancel (excused) 08/04/2024 Telephone [facility] Services at [address] [phone] Tiffanie Cantu, PT Appointment 07/29/2024 12:00 PM STATUARY PAINTER Therapy [facility] Services at [address] [id number] Tiffanie Cantu, PT Impaired mobility (Primary Dx); Lymphedema 07/29/2024 Plan of Care Documentation [facility] Services at [address] [address] 07/13/2024 9:00 AM STATUARY PAINTER Office Visit [facility] Endocrinology Metabolism and Lipid [address] 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; snf (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) from Last 3 Months Immunizations Immunization Administration Dates Next Due Influenza, Quadrivalent, Rosita l Culture-based MDCK, Preservative Free, Antibiotic Free, Intramuscular 05/13/2023,05/23/2022 Influenza, Quadrivalent, Spl it, Intramuscular 05/03/2015 Influenza, Quadrivalent, Spl it, Preservative Free, Intramuscular 05/16/2020,05/07/2018 Influenza, Unspecified 05/16/2021,2020,04/22/2021(Defer red: Patient Refused),03/19/2021(Deferred: Patient Refused),05/12/2019,05/07/2017 [employer] SARS-CoV-2 Vaccination 10/05/2020 Pneumococcal Conjugate Pcv20 04/06/2024 Pneumococcal Polysaccharide PPV23 08/03/2010, Td, adsorbed 07/05/2018 Tdap 10/04/2007 Surgical History Surgery Date Site/Laterality Comments OTHER SURGICAL HISTORY Sleep apnea: CPAP OTHER SURGICAL HISTORY Internal derangement of the knee: knee arthroscopy MYOMECTOMY Myomectomy COLONOSCOPY 04/02/2022 KNEE ARTHROSCOPY W/ LATERAL RELEASE ABDOMINAL SURGERY Medical History Medical History Date Comments Hypertension Hypertension Hx Other Medical Hyperlipidemia; Comments: [facility] 04/11/2014 - Hx Other Medical Diabetes; Comme nts: [facility] 04/11/2014 - Hx Other Medical Seasonal allerg ies; Comments: [facility] 04/11/2014 - Hx Other Medical Sleep apnea; Co mments: [facility] 04/11/2014 - Hx Other Medical 2012 Internal derang ement of the knee; Comments: [facility] 04/11/2014 - Hx Other Medical Depression; Com ments: [facility] 04/11/2014 - Hx Other Medical D and C Hx Other Medical D/C 02/2016 Hx Other Medical R knee meniscal repair 05/2014 Hx Other Medical Large uterine f ibroid resected 04/2015, uterine darby Hx Other Medical IVF transfer 2015 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 Morbid obesity (HCC) Hyperlipidemia Type 2 diabetes mellitus (HCC) Sleep apnea Depression Arthritis Family History Medical History Relation Name Comments Cancer Father Adam Skin cancer Father Adam Cancer, skin; Alzheimer's disease Maternal Grandmother Naomi Diabetes Maternal Grandmother Naomi Diabete s; Arthritis Mother Zora Diabetes Mother Zora Diabetes; Diabetes type II Mother Zora Diabetes me llitus type 2; Heart attack Mother Zora Myocardial infa rction; Heart disease Mother Zora Heart disease; Hyperlipidemia Mother Zora Hyperlipidemi a; Hypertension Mother Zora Hypertension; Diabetes Sister 1 Diabetes; Diabetes type II Sister 2 Diabetes me llitus type 2; Depression Sister 3 Scarlet Depression; Diabetes Sister 3 Scarlet Relation Name Status Comments Father Adam Maternal Grandmother Naomi Mother Zora Alive Paternal Grandmother Sister 1 Sister 2 Sister 3 Scarlet Social History Tobacco Use Types Packs/Day Years [...] on file Legal Sex Female 11:54 PM 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 PAINTER Gender Identity Female 09/19/2020 8:37 AM STATUARY PAINTER Sexual Orientation Straight 09/19/2020 8: 37 AM STATUARY PAINTER Obstetrics History Para Term AB IAB SAB Ectopic Multiple Livin g Live Births 1 1 1 Date Outcome GA Total Labor Labor/2nd/3rd Weight Sex Type Anes PTL Guillermina A1 A5 Name Clin Term Last Filed Vital Signs Vital Sign Reading Time Taken Comments Blood Pressure 124/88 08/23/2024 10:35 AM STATUARY PAINTER Pulse 91 08/23/2024 10:35 AM STATUARY PAINTER Temperature 36.5 C (97.7 F) 08/23/2024 10:35 AM STATUARY PAINTER Respiratory Rate 24 08/23/2024 10:35 AM STATUARY PAINTER Oxygen Saturation 98% 08/23/2024 10:35 AM STATUARY PAINTER Inhaled Oxygen Concentration - - Weight 138 kg (304 lb 3.8 oz) 08/23/2024 10:35 A M STATUARY PAINTER Height 167.6 cm (5' 6 ) 08/23/2024 10:35 AM STATUARY PAINTER Body Mass Index 49.1 08/23/2024 10:35 AM STATUARY PAINTER Plan of Treatment Health Maintenance Due Date Last Done Comments Cervical Cancer Screening 1975 Hepatitis C Screening 1975 Hepatitis B Screening 1994 Zoster Vaccine (1 of 2) 1995 Covid-19 Vaccine ( season) 2024 05/13/2023, 05/23/2022, 06/20/2021, Additional history exists Dilated Eye Exam 11/10/2024 11/10/2022, 03/2022, 04/23/2021, Additional history exists Albumin Creatinine Ratio, Urine 12/28/2024 12/29/2023, 12/29/2023, 07/08/2022, Additional history exists Breast Cancer Screening-Mammogram 12/28/2024 12/29/2023, 02/25/2023, 01/01/2022, Additional history exists Lipid Panel 12/28/2024 12/29/2023, 12/02, 07/08/2022, Additional history exists eGFR 12/28/2024 12/29/2023, 1201/2022, 01/14/2022, Additional history exists Regular Well Visit/Exam 18-64 01/04/2025 01/05/2024, 07/18/2022, 07/17/2021, Additional history exists Hemoglobin A1C 01/11/2025 07/13/2024, 12/02, 11/17/2023, Additional history exists Influenza Vaccine (#1) 2025 , 05/23/2022, 05/16/2021, Additional history exists Postponed from 04/03/2024 (Patient declined, but will receive in the future) Foot Exam 04/06/2025 04/06/2024, 07/03, 03/26/2021, Additional history exists Depression Screening 08/23/2025 08/23/2024, 06/15/2023, 06/08/2023, Additional history exists Colon Cancer Screening-Colonoscopy 04/02/2027 04/02/2022 DTaP/Tdap/Td Vaccine (3 - Td or Tdap) 07/05/2028 07/05/2018, 10/04/2007 Pneumococcal vaccine <65 Completed 024, 08/03/2010, 08/17/2009 Procedures Procedure Name Priority Date/Time Associated Diagnosis Comments POCT HEMOGLOBIN A1C Routine 07/13/2024 9 :08 AM STATUARY PAINTER Uncontrolled type 2 diabetes mellitus with hyperglycemia (HCC) POCT GLUCOSE 82216 Routine 07/13/2024 9: 08 AM STATUARY PAINTER Uncontrolled type 2 diabetes mellitus with hyperglycemia [...] Results * POCT glucose (07/13/2024 9:08 AM STATUARY PAINTER) Glucose Blood, POC 161 mg/dL Blood 07/13/2024 9:08 AM STATUARY PAINTER Shirley CHUN POINT OF CARE TEST ORDERA BLES Final Result * POCT hemoglobin A1c (07/13/2024 9:08 AM STATUARY PAINTER) Hemoglobin A1C, POC 11.7 4.0 - 5.6 % Blood 07/13/2024 9:08 AM STATUARY PAINTER Shirley CHUN POINT OF CARE TEST ORDERA BLES Final Result * (ABNORMAL) Comprehensive metabolic panel (12/29/2023 1:40 PM CDT) Glucose 121(H) 65 - 99 mg/dL [facility] Comment: Fasting reference interval For someone without known diabetes, a glucose value between 100 and 125 mg/dL is consistent with prediabetes and should be confirmed with a follow-up test. BUN 15 7 - 25 mg/dL [facility] Creatinine 0.69 0.50 - 0.99 mg/dL [facility] eGFR 108 > OR = 60 mL/min/1.7 3m2 [facility] BUN/creat ratio SEE NOTE: 6 - 22 (calc) [facility] Comment: Not Reported: BUN and Creatinine are within reference range. Sodium 138 135 - 146 mmol/L [facility] Potassium, pl 4.1 3.5 - 5.3 mmol/L [facility] Chloride 97(L) 98 - 110 mmol/L [facility] CO2 30 20 - 32 mmol/L [facility] Calcium 9.7 8.6 - 10.2 mg/dL [facility] Protein, sr 7.0 6.1 - 8.1 g/dL [facility] Albumin 4.3 3.6 - 5.1 g/dL [facility] GLOBULIN 2.7 1.9 - 3.7 g/dL (calc) [facility] Alb/glob ratio 1.6 1.0 - 2.5 (calc) [facility] Bilirubin, total 0.6 0.2 - 1.2 mg/dL [facility] Alk phos 46 31 - 125 U/L [facility] AST 13 10 - 35 U/L [facility] ALT (SGPT) 32(H) 6 - 29 U/L [facility] Blood 12/29/2023 1:40 PM CDT 12/29/2023 1:42 PM CDT Narrative [facility] - 12/30/2023 3:37 PM CDT FASTING:YES FASTING: YES Kishor Saleh MD LAB BLOOD ORDERABLES Final R esult Performing Organization Address City/[facility]/ZIP Co de Phone Number [employer] [facility] [address] [place] [address] * Albumin Creatinine Ratio, Urine (12/29/2023 12:26 PM CDT) Albumin Ur 14.1 mg/L Comment: Interpretive Data No reference range established. Current interpretive data was last revised 2018. Creatinine Ur 117.0 mg/dL [facility] Comment: Interpretive Data No reference range established. Current interpretive data was last revised 2018. Albumin Creatinine Ratio, Ur 12 1 - 29 mg/g [facility] Urine 12/29/2023 12:2 6 PM CDT 12/29/2023 1:04 PM CDT Shirley CHUN LAB URINE ORDERABLES Flora l Result Performing Organization Address [facility] Co de Phone Number [facility] [place] [address] * (ABNORMAL) Lipid panel (12/29/2023 12:26 PM [...] revised on 2018. Triglycerides 265(H) <=149 mg/dL [facility] Comment: Interpretive Data Ages < or = [...] revised on 2018. HDL 87 >=40 mg/dL [facility] Comment: Interpretive Data Ages < or = [...] on 2018. LDL, calculated 68 <=129 mg/dL [facility] Comment: Interpretive Data Ages < or = [...] revised on 2018. Non-HDL Cholesterol 121 mg/dL [facility] Comment: Interpretive Data Ages < or = [...] last revised on 2018. Chol/HDL ratio 2 [facility] Blood 12/29/2023 12:2 6 PM CDT 12/29/2023 1:04 PM CDT us Shirley CHUN LAB BLOOD ORDERABLES Flora dowd Result [facility] [place] [address] * Screening Mammogram Bilateral W Vincenzo (12/29/2023 9:26 AM CDT) Anatomical Region Laterality Modality Breast Bilateral Mammography Narrative 12/30/2023 2:01 PM CDT Mammogram Technique: Bilateral Digital Breast Tomosynthesis, Bilateral C-view 2D Screening mammogram. Views obtained: bilateral craniocaudal and bilateral mediolateral oblique. Computer Aided Detection was performed. Mammogram Findings: The present examination has been compared to prior imaging studies performed at [facility] on 01/01/2022 and 02/25/2023, and at [facility]. [place], [place] on 09/12/2020. There are scattered areas [...] compared to prior imaging studies performed at [facility] on 01/01/2022 and 02/25/2023, and at [facility]. [place], [place] on 09/12/2020. There are scattered areas of fibroglandular density. There is no suspicious abnormality in either breast. Impression: There is no mammographic evidence of malignancy. Annual screening mammography is recommended. OVERALL FINAL ASSESSMENT: BI-RADS CATEGORY 1: Negative. us Kishor Saleh MD IMG MAMMO PROCEDURES Final R esult * Diabetic Eye Exam (11/10/2022) us Generic External Data Provider [facility] MAINTENANC E Final Result * COLONOSCOPY (04/02/2022 9:28 AM CDT) Anatomical Region Laterality Modality Other Narrative Procedure Note Ad Camacho MD - 04/02/2022 9:28 AM CDT [facility] Patient Name: Camila Huitron Procedure Date: 04/02/2022 9:28 AM Date of : 1975 Admit Type: Outpatient Age: 46 Gender: Female Attending MD: Ad Camacho M.D. Room: [facility] ENDOSCOPY ROOM 2 Note Status: Finalized [...] scope was passed under direct vision. TheColonoscope [id number] was introduced through the anus and advanced [...] 9:28 AM Procedure Code(s): --- Professional --- 85249, Colonoscopy, flexible; with biopsy, single or multiple Diagnosis Code(s): --- Professional --- Z12.11, Encounter for screening for malignant neoplasm of colon D12.3, Benign neoplasm of transverse colon (hepatic flexure orsplenic flexure) D12.4, Benign neoplasm of descending colon D12.8, Benign neoplasm of rectum CPT copyright 2020 [employer]. All rights reserved. The codes documented in this report are preliminary and upon section repairer reviewmay be revised to meet current compliance requirements. Recognized by the [place] [employer] for promoting quality in endoscopy Ad Camacho MD ENDOSCOPY PROCEDURES Final Resul t * Diabetic Foot Exam (03/26/2021) Impressions Art Staley MA - 03/26/2021 In care everywhere Historical Provider HEALTH MAINTENANCE Final Result from Last 3 Months or Most Recently Relevant to Health Maintenance Insurance [facility] Advance Directives For more information, please contact: [phone] * Full Code (Latest Code Status on File) Date Activated Date Inactivated Comments 04/02/2022 9:27 AM 04/02/2022 4:47 PM * Full Code Date Activated Date Inactivated Comments 04/02/2022 9:27 AM 04/02/2022 9:27 AM Care Teams Manager Hi Relationship Specialty [place] [address] [facility] [address] [place] [address] PCP - General Internal Medicine 04/06/24 Ann Serrano MD Referring Physician Endocrinology Diabetes & Metabolism 06/08/20
--- OUTSIDE RECORDS SUMMARY | 2024-09-22 19:55 | XMS_ITS | Continuity of Care Document ---
Author Organization [facility] Address [address] [place] [address] Phone Care Team Providers Care Neurobiologist Name Role Phone Tiffany Cox MD Unavailable Unavai lable Allergies, Adverse Reactions, Alerts Substance Reaction Status Criticality glipizide Active No Information METFORMIN HCL Active No Information POTASSIUM CLAVULANATE Active No Inf ormation AMOXICILLIN TRIHYDRATE Active No In formation Medications Medication Instructions Dosage Effective Dates (start - stop) Status Comments LISINOPRIL 20 MG TABLET TAKE 1 TABLET BY MOUTH DAILY. 20 MG - Active cetirizine 10 mg tablet TAKE ONE TABLET BY MOUTH AT BEDTIME NO LATER THAN 10:00 IN THE EVENING 10 MG - Active Victoza 2-Marvel 0.6 mg/0.1 mL (18 mg/3 mL) Sub-Q Pen Injector inject 1.8 milliliter by subcutaneous route every day 10.8 MG - Active Tylenol-Codeine #3 300 mg-30 mg tablet take 1 by Oral route every 4 - 6 hours as needed for pain 1 - Active Flexeril 5 mg tablet take 1 tablet by or al route 3 times every day - Active Lovaza 1 gram capsule take 1 Capsule by Oral route 2 times every day 1 Capsule - Active Lasix 20 mg tablet take 1 Tablet by Ora l route 3 times every week Take Thursday, , Thursday as needed for leg swelling 1 Tablet - Active Klor-Con 10 mEq tablet,extended release take 1 Tablet by oral route 3 times every week take with food. Take only when you take the Lasix 10 MEQ - Active albuterol sulfate HFA 90 mcg/actuation Aerosol Inhaler inhale 2 - 4 puff by inhalation route every 4 hours as needed 2-4 puff - Active Advair HFA 115 mcg-21 mcg/actuation Aerosol Inhaler inhale 2 puff by inhalation route 2 times every day in the morning and evening 2.00 puff - Active Flonase 50 mcg/actuation Nasal [place] spray 1 spray by intranasal route every day in each nostril as needed - Active albuterol sulfate 2.5 mg/3 mL (0.083 %) Neb Solution inhale 1 Packet by Inhalation route every 4 hours PRN SHORTNESS OF BREATH 1 Packet - Active Lantus Solostar 100 unit/mL (3 mL) Sub-Q Insulin Pen inject 25 Unit by subcutaneous route every evening as per insulin protocol 25 Unit - Active venlafaxine ER 75 mg tablet,24 hr extended release take 1 tablet (75MG) by oral route every day in the evening at the same time each day with food 75 MG - Active Invokana 100 mg tablet take 1 tablet by oral route every day before the first meal of the day 100 MG - Active Advance Directives Directive Yes / No Effective Date File Name No Information Encounters Encounter Description Practice Location Reason(s) For Visit Diagnoses Date Provider Providers Copied on Encounter [facility], [address], [place], [place], [id number] , tel: [phone] [facility] No Information 5 Damien Allen. [address] [place] [address], [id number]. tel:[phone] [facility], [address], [place], [place], [address] , [place] tel: [phone] [facility] No Information 5-201 5 Damien Allen. [address] [place] [address], [id number]. tel:[phone] [facility], [address], [place], [place], [address] , [place] tel: [phone] [facility] No Information 4 Lee Zulma Allen. [address] [place] [address], [facility] [address], [place], [place], [address]. tel:[phone] [facility], [address], [place], [place], [address] , [place] tel: [phone] [facility] No Information 3 Lee Threats Tiffany. [address] [place] [address], [facility] [address], [place], [place], [id number]. tel:[phone] [facility], [address], [place], [place], [address] , [place] tel: [phone] [facility] Strain of right knee and leg 3 Shahmarcell Castellanos. [address] [place] [address], [facility], [place], [place], [id number], [place]. tel:[phone] Referring Provider: Tiffany Maya, [address] [place] [address], [place], [address] . tel:[phone] [facility], [address], [place], [place], [address] , [place] tel: [phone] [facility] No Information 3 Damienmissy Allen. [address] [place] [address], [facility] [address], [place], [place], [id number]. tel:[phone] [facility], [address], [place], [place], [id number] , [place] tel: [phone] [facility] Type II diabetes mellitusDyslipidemi aContact with or exposure to tuberculosis 3 Lee Zulma Carrizalesan. [address] [place] [address], [place], [place], [address]. tel:[phone] Referring Provider: Tiffany Maya, [address] [place] [address] [address], [place], [address] . tel:[phone] [facility], [address], [place], [place], [address] , [place] tel: [phone] [facility] Diabetes mellitus without mention of complication, type II or unspecified type, uncontrolledAllergi c rhinitis, cause unspecifiedExtrinsi c asthmaMorbid obesityDiabetes mellitus without mention of complication, type II or unspecified type, not stated as uncontrolled 0 3 Damien Allen. [address] [place] [address], [place] [address], [place], [place], [id number]. tel:[phone] Referring Provider: Tiffany Maya, [address] [place] [address], [place], [address] . tel:[phone] [facility], [address], [place], [place], [id number] , tel: [phone] [facility] No Information 3 Damien Allen. [address] [place] [address], [id number]. tel:[phone] [facility], [address], [place], [place], [address] , [place] tel: [phone] [facility] No Information 3 Sarah Cutler. [address] [place] [address], [place], [place], [id number], [place]. tel:[phone] [facility], [address], [place], [place], [address] , tel: [phone] [facility] Bronchitis, not specified as acute or chronicBronchitis, not specified as acute or chronic 3 Damien Allen. [address] [place] [address], [address], [id number]. tel:[phone] Referring Provider: Tiffany Maya, [address] [place] [address], [place], [address] . tel:[phone] [facility], [address], [place], [place], [id number] , tel: [phone] [facility] No Information 0 3 Sarah Cutler. [address], [address], [place], [place], [address], [place]. [phone] [facility], [address], [place], [place], [address] , tel: [phone] [facility] Diabetes mellitus without mention of complication, type II or unspecified type, uncontrolledEdemaIn fertility, female, associated with anovulationAllergic rhinitis, cause unspecifiedRoutine medical examMorbid obesityIrregular menses 3 Damien Maya Tiffany. [address], [address], [place], [place], [address]. [phone] Referring Provider: Tiffany Maya, [facility], [place], [address] . tel:[phone] Family History Family Member Type Diagnosis Age At Onset Problem (finding) Family history of migra ine Problem (finding) Family history of alzhe rj's disease Problem (finding) Family history of coronary arteriosclerosis Problem (finding) Family history of Menta l illness Problem (finding) Family history of Diabe sheila mellitus Problem (finding) Family history of depre ssion Payers Payer name Insurance type Covered constitution party ID Authoriza tion(s) Infinio OPEN ACCESS I II III CI [id number] Social History Type Description Quantity Date Captured Comments Sex Female Smoking Status No Information Chief Complaint And Reason For Visit No Information Reason For Referral Reason For Referral No Information History Of Present Illness Encounter Date Complaint History Of Prese nt Illness No Information Functional Status Date Functional Assessmen t No Information Instructions Date Instruction Additional Infor mation No Information Assessments Type Assessment Date No Information Patient Care Teams Name Effective Dates (start - stop) Status Members No Information
--- OUTSIDE RECORDS SUMMARY | 2024-09-22 19:56 | XMS_ITS | Clinical Summary ---
Author Organization [facility] Address [address] [place] [address] Care Team Providers Care Chief Deputy Sheriff Name Role Phone Kishor Saleh MD Primary Care Provider Source Comments [facility],non-owned Affiliates and Associated Physician Practices is amultiple site organization consisting of ambulatory clinics and hospital sitesin [place], [place], [place] and [place]. This disclosure is being madepursuant to the Care Everywhere program and may not contain all information available regarding this patient. Last updated 18.[facility] Allergies Active Allergy Reactions Criticality Noted Date Comments Amlodipine Base Nausea and/or Vomiting 07/31/20 23 Amoxicillin-Pot Clavulanate Nausea and/or Vomiting 07/31/2023 Glipizide Nausea and/or Vomiting 07/31/2023 Hydrochlorothiazide Nausea and/or Vomiting 07/04 Hydrocodone Nausea and/or Vomiting 07/31/2023 Liraglutide Nausea and/or Vomiting 07/31/2023 Metformin Nausea and/or Vomiting 07/31/2023 Medications * Be aware that medications may not be up to date on this document. Alwaysverify current medications with the patient. Medication Sig Dispensed Refills Start Date End Date Status albuterol (Proventil;Lara martin) (2.5 MG/3ML) 0.083% nebulizer solution Inhale 2.5 (two and one-half) mg by mouth every 6 hours as needed for Shortness of Breath or Wheezing Active atorvastatin (Lipitor) 20 MG tablet Take 1 (one) tablet by mouth at bedtime Active cetirizine (ZyrTEC) 10 MG tablet Take 1 (one) tablet by mouth once daily Active cyclobenzaprine (Flexeril) 10 MG tablet Take 1 (one) tablet by mouth nightly as needed for Muscle Spasms Active diphenhydrAMINE (Benadryl) 50 MG capsule Take 1 (one) capsule by mouth every 6 hours as needed for Itching or Allergies Active fluticasone propionate (Flonase) 50 MCG/ACT nasal spray [place] 2 (two) sprays into each nostril once daily as needed Active hydroxychloroqui ne (Plaquenil) 200 MG tablet Take 2 (two) tablets by mouth once daily Active insulin glargine (Lantus/Semglee) 100 units/mL pen Inject 40 (forty) Units subcutaneously 2 times daily, before breakfast and supper Active Insulin Lispro-aabc, 1 U Dial, (Lyumjev KwikPen) 100 UNIT/ML SOPN Inject 10-15 Units subcutaneously 3 times daily before meals Inject 10 units TID before each meal in addition to sliding scale of 1 unit for every glucose 50 mg/dL over 150 mg/dL (1:50 for BG > 150) Active montelukast (Singulair) 10 MG tablet Take 1 (one) tablet by mouth at bedtime Active tirzepatide (Mounjaro) 10 MG/0.5ML injection Inject 10 (ten) mg subcutaneously every 7 days on Thursday Active traMADol (Ultram) 50 MG tablet Take 1 (one) tablet by mouth every 8 hours as needed for Pain Active venlafaxine XR 24hr (Effexor XR) 150 MG capsule Take 1 (one) capsule by mouth at bedtime Active vitamin D, ergocalciferol, (Drisdol) 1.25 MG (21999 UT) capsule Take 1 (one) capsule by mouth every Thursday & Thursday Active acetaminophen (Tylenol) 500 MG tablet Take 1 (one) tablet by mouth every 6 hours as needed for Fever or Pain Maximum allowable Acetaminophen amount = 4 Grams (4000 mg) / 24 hours. Active diclofenac sodium EC (Voltaren) 75 MG tablet Take 1 (one) tablet by mouth 2 times daily Active folic acid (Folvite) 1 MG tablet Take 1 (one) tablet by mouth once daily Active gabapentin (Neurontin) 300 MG capsule Take 1 (one) capsule by mouth 3 times daily as needed Active methotrexate 2.5 MG tablet Take 5 (five) tablets by mouth twice daily once a week on Active pantoprazole EC (Protonix) 40 MG tablet Take 1 (one) tablet by mouth once daily Active predniSONE (Deltasone) 10 MG tablet Take 6 (six) tablets by mouth once daily for 5 days, THEN 5 (five) tablets once daily for 5 days, THEN 4 (four) tablets once daily for 60 days. 295 tablet 08/18/2024 10/27/2024 Active Active Problems Problem Noted Date Diagnosed Date Morbid obesity 08/14/2024 Uncontrolled diabetes mellitus with hyperglycemi a 08/14/2024 Acute hypoxic respiratory failure 08/13/2024 Encounters Date Type Department Care Team Description 08/13/2024 3:[address] - 08/18/2024 5:[address]ER Hospital Encounter [facility] [address] Telemetry [address] [place] [address] Alexus Ramirez MD Ramgopal, Britney Martin, MD Fatima, Noor E, MD Yu, Yang, MD Zhu, He, MD Hospitalist Discharge Disposition: Home or Self Care 08/13/2024 Travel from Last 3 Months Family History Medical History Relation Name Comments CAD (Coronary Artery Disease) Mother Diabetes - Type 2 Mother Relation Name Status Comments Mother Social History Tobacco Use Types Packs/Day Years Used Date Smoking Tobacco: Never Smokeless Tobacco: Never Tobacco Cessation:Counseling Given: Not Answered Alcohol Use Standard Drinks/Week Comments Yes 0 (1 standard drink = 0.6 oz pur e alcohol) 1 time per month AUDIT-C Answer Date Recorded Q1: How often do you have a drink containing alcohol? Patient unable to answer 08/13/2024 Q2: How many drinks containi ng alcohol do you have on a typical day when you are drinking? Patient unable to answer Q3: How often do you have si x or more drinks on one occasion? Patient unable to answer 08/13/2024 Overall Financial Resource Strain (CARDIA) Answe r Date Recorded How hard is it for you to pa y for the very basics like food, housing, medical care, and heating? Not hard at all 08/15/2024 Hunger Vital Sign Answer Date Recorded Within the past 12 months, y ou worried that your food would run out before you got the money to buy more. Never true 08/15/19 25 Within the past 12 months, t he food you bought just didn't last and you didn't have money to get more. Never true 08/15/2024 PRAPARE - Transportation Answer Date Re corded In the past 12 months, has l ack of transportation kept you from medical appointments or from getting medications? No 08/03 In the past 12 months, has l ack of transportation kept you from meetings, work, or from getting things needed for daily living? No 08/15/2024 Housing Stability Vital Sign Answer Lan e Recorded In the last 12 months, was t here a time when you were not able to pay the mortgage or rent on time? No 08/15/2024 Number of Times Moved in the Last Year Not on fi le 08/15/2024 At any time in the past 12 m [facility], were you homeless or living in a mcc (including now)? No 08/15/2024 Sex and Gender Information Value Date Recorded Sex Assigned at Not on file Gender Identity Not on file Sexual Orientation Not on file Last Filed Vital Signs Vital Sign Reading Time Taken Comments Blood Pressure 154/92 08/18/2024 12:[address] Pulse 102 08/18/2024 12:[address] Temperature 36.7 C (98.1 F) 08/18/2024 12:[address] Respiratory Rate 23 08/18/2024 12:[address] Oxygen Saturation 90% 08/18/2024 12: [address] Inhaled Oxygen Concentration 21% 08/18/2024 2 :[address] Weight 132.6 kg (292 lb 4.8 oz) 08/18/2024 4:[address] Height 167.6 cm (5' 6 ) 08/13/2024 5:[address] Body Mass Index 47.18 08/13/2024 5:[address] Plan of Treatment Health Maintenance Due Date Last Done Comments COLOGUARD (AGES 45-75) - COLON CA SCREENING [address] COLONOGRAPHY - COLON CA SCREENING 1976 FIT - COLON CA SCREENING 1976 FLEX SIG - COLON CA SCREENING 1976 Opioid Medication Agreement - Annual 1976 Opioid Medication Urine Drug Screening 1976 PAP SMEAR 1976 HIV SCREENING 1991 HEPATITIS C SCREENING 06/09/1994 DTAP/TDAP/TD VACCINES (1 - Tdap) 1995 HEPATITIS B VACCINE (1 of 3 - 19+ 3-dose series) 1995 PNEUMOCOCCAL VACCINE (1 of 2 - PCV) 1995 COVID-19 VACCINE (5 - season) 2024 05/13/2023, 05/23/2022, 06/20/2021, Additional history exists INFLUENZA VACCINE (#1) 2024 , 05/23/2022, 05/16/2021, Additional history exists DEPRESSION SCREENING 08/03/2024 DIABETES - URINE PROTEIN SCREENING 08/03/2024 DIABETES RETINOPATHY SCREENING 08/14/2024 DIABETES-FOOT EXAM WITH MONOFILAMENT 08/14/2024 DIABETES-HGB A1C 02/11/2025 08/14/2024, 06/2024, 11/17/2023 DIABETES-SERUM CREATININE 08/17/20252024, 08/16/2024, 08/15/2024, Additional history exists MAMMOGRAM 12/28/2025 12/29/2023, 12/02, 02/25/2023, Additional history exists ZOSTER VACCINE (1 of 2) 2026 COLONOSCOPY - COLON CA SCREENING 04/02/2032 04/02/2022 Colorectal Cancer Screening 04/02/2032 HIB VACCINE Aged Out No longer eligi ble based on patient's age to complete this topic HPV VACCINE Aged Out No longer eligi ble based on patient's age to complete this topic MENINGOCOCCAL (Group B) VACCINE Aged Out No longer eligible based on patient's age to complete this topic MENINGOCOCCAL VACCINE Aged Out No yamileth jack eligible based on patient's age to complete this topic Procedures Procedure Name Priority Date/Time Associated Diagnosis Comments CARDIAC RHYTHM STRIP ORDER 08/23/2024 2:[address] HOME O2 EVAL (DESATURATION SCREEN) Routine 08/18/2024 10:[address] GLUCOSE - POINT OF CARE Routine 08/18/2024 7:[address] GLUCOSE - POINT OF CARE Routine 08/17/2024 9:[address] GLUCOSE - POINT OF CARE Routine 08/17/2024 5:[address]ER GLUCOSE - POINT OF CARE Routine 08/17/2024 12:[address] GLUCOSE - POINT OF CARE Routine 08/17/2024 7:[address] CBC W/O DIFFERENTIAL AM Draw 08/17/2024 4:[address] BASIC METABOLIC PANEL (CALCIUM TOTAL) AM Draw 08/17/2024 4:[address] GLUCOSE - POINT OF CARE Routine 08/17/2024 12:[address] VANCOMYCIN LEVEL TROUGH Timed 08/16/2024 6:[address] GLUCOSE - POINT OF CARE Routine 08/16/2024 6:[address]ER CBC W/O DIFFERENTIAL AM Draw 08/16/2024 4:[address] BASIC METABOLIC PANEL (CALCIUM TOTAL) AM Draw 08/16/2024 4:[address] GLUCOSE - POINT OF CARE Routine 08/15/2024 10:[address]ER GLUCOSE - POINT OF CARE Routine 08/15/2024 4:[address] GLUCOSE - POINT OF CARE Routine 08/15/2024 2:[address] GLUCOSE - POINT OF CARE Routine 08/15/2024 12:[address] CULTURE BLOOD Timed 08/15/2024 8:[address]ER CULTURE BLOOD Timed 08/15/2024 8:[address] GLUCOSE - POINT OF CARE Routine 08/15/2024 5:[address] CBC W/O DIFFERENTIAL AM Draw 08/15/2024 3:[address] BASIC METABOLIC PANEL (CALCIUM TOTAL) AM Draw 08/15/2024 3:[address] GLUCOSE - POINT OF CARE Routine 08/14/2024 11:[address] GLUCOSE - POINT OF CARE Routine 08/14/2024 6:[address]ER GLUCOSE - POINT OF CARE Routine 08/14/2024 12:[address] GLUCOSE - POINT OF CARE Routine 08/14/2024 10:[address]ER GLUCOSE - POINT OF CARE Routine 08/14/2024 9:[address]ER GLUCOSE - POINT OF CARE Routine 08/14/2024 8:[address]ER GLUCOSE - POINT OF CARE Routine 08/14/2024 7:[address]ER GLUCOSE - POINT OF CARE Routine 08/14/2024 6:[address]ER GLUCOSE - POINT OF CARE Routine 08/14/2024 5:[address]ER GLUCOSE - POINT OF CARE Routine 08/14/2024 4:[address]ER GLUCOSE - POINT OF CARE Routine 08/14/2024 3:[address] HEMOGLOBIN A1C Routine 08/14/2024 3:[address]ER CBC W/O DIFFERENTIAL AM Draw 08/14/2024 3:[address] BASIC METABOLIC PANEL (CALCIUM TOTAL) AM Draw 08/14/2024 3:[address] GLUCOSE - POINT OF CARE Routine 08/14/2024 2:[address] GLUCOSE - POINT OF CARE Routine 08/14/2024 1:[address]ER GLUCOSE - POINT OF CARE Routine 08/14/2024 12:[address] GLUCOSE - POINT OF CARE Routine 08/13/2024 8:[address]ER STREP PNEUMONIAE ANTIGEN URINE Routine 08/13/2024 5:[address]ER LEGIONELLA ANTIGEN URINE Routine 08/13/2024 5:[address] RESPIRATORY PANEL WITH SARS-COV-2 BY PCR (STL) Routine 08/13/2024 5:[address] CULTURE BLOOD Timed 08/13/2024 5:[address] CULTURE MRSA Routine 08/13/2024 5:[address] DIFFERENTIAL MANUAL STAT 08/13/2024 5 :[address]ER PTT STAT 08/13/2024 5:[address] PT-INR STAT 08/13/2024 5:[address] PHOSPHORUS BLOOD STAT 08/13/2024 5:[address] MAGNESIUM BLOOD STAT 08/13/2024 5:[address] LIPASE BLOOD STAT 08/13/2024 5:[address] LACTIC ACID BLOOD STAT 08/13/2024 5:[address] COMPREHENSIVE METABOLIC PANEL STAT 08/13/2024 5:[address]ER CBC W AUTO DIFFERENTIAL STAT 08/13/2024 5:[address] B-TYPE NATRIURETIC PEPTIDE STAT 08/13/2024 5:[address] BCID PANEL Routine 08/13/2024 5:[address] CULTURE BLOOD Timed 08/13/2024 5:[address] GLUCOSE - POINT OF CARE Routine 08/13/2024 4:[address] BLOOD GASES ARTERIAL STAT 08/13/2024 4:[address] XR CHEST 1VW PORTABLE STAT 08/13/2024 4:[address] Acute hypoxic respiratory failure (HCC) from Last 3 Months Results * CARDIAC RHYTHM STRIP ORDER (08/23/2024 2:[address]) Narrative 08/23/2024 2:[address] Ordered by an unspecified provider. Scanned Document CARDIAC SERVICES ORD ERABLES * GLUCOSE - POINT OF CARE (08/18/2024 7:[address]) Only the most recent of28 resultswithin the time period is included. Glucose WB/POC 81 70 - 99 mg/dL 08/18/2024 7:[address] [facility] Specimen Type Cap Fingerstick 2024 7:[address] [facility] Blood BLOOD SPECIMEN / Unknown 08/18/2024 7:[address] 08/18/2024 7:[address] Young Mcwilliams MD LAB - POINT OF CARE ORDERABLES [facility] [address] [place] [address] * (ABNORMAL) CBC W/O DIFFERENTIAL (08/17/2024 4:[address]) Only the most recent of4 resultswithin the time period is included. WBC 16.3(H) 4.0 - 10.7 x10E9/L 08/17/2024 4:[address] [facility] RBC Count 3.51(L) 3.90 - 5.20 x10E12/L 08/17/2024 4:44 AM [facility] Hemoglobin 10.3(L) 11.9 - 15.8 g/dL 08/17/2024 4:44 AM [facility] Hematocrit 32.6(L) 34.8 - 46.1 % 08/17/2024 4:44 AM [facility] MCV 92.9 80.0 - 98.0 fL 08/17/2024 4:44 AM [facility] MCH 29.3 26.7 - 33.6 pg 08/17/2024 4:44 AM [facility] MCHC 31.6(L) 31.7 - 36.3 g/dL 08/17/2024 4:44 AM [facility] RDW-CV 15.8(H) 11.3 - 14.8 % 08/17/2024 4:44 AM [facility] Platelet Count 478(H) 150 - 420 x10E9/L 08/17/2024 4:44 AM [facility] MPV 10.4 7.8 - 11.4 fL 08/17/2024 4:44 AM [facility] NRBC 0.8(H) <=0.0 /100 WBC 08/17/2024 4:44 AM [facility] Blood BLOOD SPECIMEN / Unknown Venipuncture / Unknown 08/17/2024 4:[address] 08/17/2024 4:30 AM [facility] Alexus Ramirez MD LAB - HEMATOLOGY ORD ERABLES [facility] [address] [place] [address] * (ABNORMAL) BASIC METABOLIC PANEL (CALCIUM TOTAL) (08/17/2024 4:[address]) Only the most recent of4 resultswithin the time period is included. Glucose 139(H) 70 - 99 mg/dL 08/17/2024 4:53 AM [facility] Sodium 140 136 - 145 mmol/L 08/17/2024 4:53 AM [facility] Potassium 3.5 3.5 - 5.1 mmol/L 08/17/2024 4:53 AM [facility] Chloride 108(H) 98 - 107 mmol/L 08/17/2024 4:53 AM [facility] CO2 24 22 - 29 mmol/L 08/17/2024 4:53 AM [facility] Calcium 8.9 8.4 - 10.4 mg/dL 08/17/2024 4:53 AM [facility] Anion Gap 8 6 - 16 mmol/L 08/17/2024 4:53 AM [facility] BUN 15 5.3 - 18.7 mg/dL 08/17/2024 4:53 AM [facility] Creatinine 0.65 0.57 - 1.11 mg/dL 08/17/2024 4:53 AM [facility] eGFR by CKD-EPI >90 >=90 mL/min/1.7 3 m2 08/17/2024 4:53 AM [facility] Blood BLOOD SPECIMEN / Unknown Venipuncture / Unknown 08/17/2024 4:[address] 08/17/2024 4:[address] Alexus Ramirez MD LAB - CHEMISTRY MICHAEL [facility] Performing Organization Address City/[facility] Co de Phone Number [facility] [address] [place] [address] * (ABNORMAL) VANCOMYCIN LEVEL TROUGH (08/16/2024 6:[address]) [facility] Vancomycin Trough 6.1(L) 10.0 - 20.0 ug/mL 08/16/2024 7:[address] [facility] Blood BLOOD SPECIMEN / Unknown Venipuncture / Unknown 08/16/2024 6:[address] 08/16/2024 7:[address] Anatoliy Wyman MD LAB - CHEMISTRY ORDMarkos [facility]TGOMERY Performing Organization Address [facility] Co de Phone Number [facility] [address] [place], [place] [id number] * CULTURE BLOOD (08/15/2024 8:[address]) Only the most recent of4 resultswithin the time period is included. [facility] Signature Culture No growth day 5 LORENZO 08/20/2024 1:[address] [facility] Blood PERIPHERAL BLOOD / Unknown Venipuncture / Unknown 08/15/2024 8:[address] 08/15/2024 9:[address] Amadeo Milner MD LAB - MICROBIOLOGY O RDERABLES [facility] [address] [place] [address], [facility] [phone] * (ABNORMAL) HEMOGLOBIN A1C (08/14/2024 3:[address]) Hemoglobin A1c 10.1(H) <5.7 % 08/14/2024 3:[address] [facility] Estimated Average Glucose 243 mg/dL 08/14/2024 3:[address] [facility] Blood BLOOD SPECIMEN / Unknown Venipuncture / Unknown 08/14/2024 3:[address] 08/14/2024 3:[address] Narrative [facility] - 08/14/2024 3:[address] HbA1c Interpretation: Normal: < 5.7% Pre-diabetes: 5.7-6.4% Diabetes: Equal to or greater than 6.5% Test results diagnostic of diabetes should be repeated for confirmation. Treatment target values recommended by ADA and other clinical organizations should be used to evaluate metabolic control in patients. This test should not replace glucose testing for patients with Type 1 diabetes, pediatric patients, or women. Falsely low HbA1c results may be observed in patients with clinical conditions that shorten erythrocyte life span or decrease mean erythrocyte age such as the presence of unstable hemoglobin variants, elevated hemoglobin F level or other causes of hemolytic anemia. HbA1c may not accurately reflect glycemic control when clinical conditions that affect erythrocyte survival are present. Severe Iron deficiency anemia may yield falsely high results. Hemoglobin A1c assay should not be used to diagnose or monitor diabetes in patients with malignancy, recent blood transfusion, chronic kidney or liver disease. This method may yield falsely low results when hemoglobin (HbF) exceeds 5% in the specimen. The [facility] assay for the measurement of HbA1c is a National Glycohemoglobin Standardization Program (NGSP) certified method. Alexus Ramirez MD LAB - CHEMISTRY MIGUELMarkos MONTGOMERY Performing Organization Address City/[facility]/ZIP Co de Phone Number [facility] [address] [place] [address] * STREP PNEUMONIAE ANTIGEN URINE (08/13/2024 5:[address]) Streptococcus pneumoniae Antigen Urine Negative Negative 08/14/2024 8:[address] [facility] Urine URINE / Unknown Collection / Unknown 08/13/2024 5:[address] 08/13/2024 5:[address] Narrative [facility] - 08/14/2024 8:[address] Patients who have received the Streptococcus pneumoniae vaccines may test positive in the 48 hours following vaccination. It is recommended to avoid testing within five days of receiving vaccination. Testing pediatric patients is discouraged because of their high rates of nasal colonization with Streptococcus pneumoniae leading to false positive results. Samples from patients taking antibiotics for more than 24 hours may cause false negatives. Alexus Ramirez MD LAB - MICROBIOLOGY Blayne BABCOCK Performing Organization Address [facility] Co de Phone Number [facility] [address] [place] [id number] [phone] * LEGIONELLA ANTIGEN URINE (08/13/2024 5:[address]) Legionella Antigen Urine Negative Negative 08/14/2024 8:[address] [facility] Urine URINE / Unknown Collection / Unknown 08/13/2024 5:[address] 08/13/2024 5:[address] Narrative [facility] - 08/14/2024 8:[address] This assay detects Legionella pneumophila serogroup one (1) antigen. A negative test result does not rule out the possibility of Legionella infection due to other serogroups or species of Legionella. A positive result may indicate a recent or remote infection with serogroup 1. Alexus Ramirez MD LAB - MICROBIOLOGY [place] Performing Organization Address City/[facility]/ZIP Co de Phone Number [facility] [address] [place] [address], [facility] [phone] * (ABNORMAL) RESPIRATORY PANEL WITH SARS-COV-2 BY PCR (STL) (08/13/2024 5:[address]) Adenovirus PCR Not detected Not detected 08/13/2024 11:[address] [facility] Coronavirus 229E PCR Not detected Not detected 08/13/2024 11:[address] [facility] Coronavirus HKU1 PCR Not detected Not detected 08/13/2024 11:[address] [facility] Coronavirus NL63 PCR Not detected Not detected 08/13/2024 11:[address] [facility] Coronavirus OC43 PCR Not detected Not detected 08/13/2024 11:[address] [facility] COVID-19 PCR Not detected Not detected 08/13/2024 11:[address] [facility] Human Metapneumovirus PCR Not detected Not detected 08/13/2024 11:[address] [facility] Human Rhinovirus/Enterov irus PCR Not detected Not detected 08/13/2024 11:[address] [facility] Influenza A PCR Not detected Not detected 08/13/2024 11:[address] [facility] Influenza B PCR Not detected Not detected 08/13/2024 11:[address] [facility] Parainfluenza Virus 1 PCR Not detected Not detected 08/13/2024 11:[address] [facility] Parainfluenza Virus 2 PCR Not detected Not detected 08/13/2024 11:[address] [facility] Parainfluenza Virus 3 PCR Not detected Not detected 08/13/2024 11:[address] [facility] Parainfluenza Virus 4 PCR Not detected Not detected 08/13/2024 11:[address] [facility] Respiratory Syncytial Virus PCR Detected(A) Not detected 08/13/2024 11:[address] [facility] Bordetella parapertussis PCR Not detected Not detected 08/13/2024 11:[address] [facility] Bordetella pertussis PCR Not detected Not detected 08/13/2024 11:[address] [facility] Chlamydia pneumoniae PCR Not detected Not detected 08/13/2024 11:[address] [facility] Mycoplasma pneumoniae PCR Not detected Not detected 08/13/2024 11:[address] [facility] Microbiology SPECIMEN FROM NASOPHARYNGEAL STRUCTURE / Unknown Collection / Unknown 08/13/2024 5:[address] 08/13/2024 5:[address] Narrative [facility] - 08/13/2024 11:[address] Contact and Droplet Precautions Required. This nucleic amplification assay has received FDA authorization via the [place] Pathway. Alexus Ramirez MD LAB - MICROBIOLOGY [place] [facility] MICROBIOLOGY [address] [place] [address], [facility] [phone] * CULTURE MRSA (08/13/2024 5:[address]) Culture Negative for methicillin-resist ant Staphylococcus aureus (MRSA) LOERNZO 08/15/2024 8:[address] [facility] MICROBIOLOGY Microbiology SPECIMEN FROM NASAL FOSSAE / Unknown Collection / Unknown 08/13/2024 5:[address] 08/13/2024 5:[address] Alexus Ramirez MD LAB - MICROBIOLOGY O [place] [facility] MICROBIOLOGY [address] [place] [address], [facility] [phone] * (ABNORMAL) BCID PANEL (08/13/2024 5:[address]) Staphylococcus epidermidis Detected (A) Not detected 08/15/2024 2:[address] [facility] MICROBIOLOGY MECA/C (Methicillin-Resi stance Gene) Detected (A) Not detected 08/15/2024 2:03 AM [facility] MICROBIOLOGY Comment:Results indicate met hicillin-resistant Staphylococcus epidermidis. Methicillin-resistance detected. Blood PERIPHERAL BLOOD / Unknown Venipuncture / Unknown 08/13/2024 5:[address] 08/13/2024 5:[address] Narrative [facility] MICROBIOLOGY - 08/15/2024 2:[address] Blood Culture ID Panel performed by PointAcross multiplex PCR. The Test panel includes: Gram Positive Bacteria: Enterococcus faecalis, Enterococcus faecium, Listeria monocytogenes, Staphylococcus (genus), Staphylococcus aureus, Staphylococcus epidermidis, Staphylococcus lugdunensis, Streptococcus (genus), Streptococcus agalactiae (Group B), Streptococcus pneumoniae, Streptococcus pyogenes (Group A). Gram Negative Bacteria: Acinetobacter baumannii complex, Bacteroides fragilis, Haemophilus influenzae, Neisseria meningitidis (encapsulated), Pseudomonas aeruginosa, Stenotrophomonas maltophilia, Enterobacterales (formerly Enterobacteriaceae family), Enterobacter cloacae complex, Escherichia coli, Klebsiella (formerly Enterobacter) aerogenes, Klebsiella oxytoca, Klebsiella pneumoniae group, Proteus (genus), Salmonella species, Serratia marcescens. YEAST: Caroline albicans, Caroline auris, Caroline glabrata, Caroline krusei, Caroline parapsilosis, Caroline tropicalis, Cryptococcus neoformans/gattii. Antimicrobial Resistance Genes: CTX-M (extended-spectrum beta-lactamase), IMP (metallo beta-lactamase), KPC (carbapenemase), mcr-1 (colistin resistance determinant) mecA/C (methicillin-resistance), mecA/C and MREJ (methicillin-resistance - MRSA), NDM ([place]ira jgihnol-vbja-yovtfiyns), OXA-48-like (oxacillinase beta-lactamase),Ashly/B (vancomycin-resistance), VIM (Noa Intergrom-Encoded Metallo beta-lactamase). Alexus Ramirez MD LAB - MICROBIOLOGY O RDERABLES [facility] MICROBIOLOGY [address] [facility] [address] [place] [phone] * PTT (08/13/2024 5:[address]) PTT 28.4 23.0 - 38.4 sec 08/13/2024 5:[address] [facility] Blood BLOOD SPECIMEN / Unknown Venipuncture / Unknown 08/13/2024 5:[address] 08/13/2024 5:[address] Narrative [facility] - 08/13/2024 5:[address] Heparin Therapeutic Range for PTT: 69.0 - 110.0 seconds. Alexus Ramirez MD LAB - COAGULATION OR DERABLES Performing Organization Address [facility] Co de Phone Number [facility] [id number] [place] [address] * PT-INR (08/13/2024 5:[address]) PT 14.1 12.1 - 14.8 sec 08/13/2024 5:[address] [facility] INR 1.1 0.9 - 1.1 08/13/2024 5:[address] [facility] Blood BLOOD SPECIMEN / Unknown Venipuncture / Unknown 08/13/2024 5:[address] 08/13/2024 5:[address] Narrative [facility] - 08/13/2024 5:[address] Conventional Warfarin Anticoagulant Therapy: INR Reference Range: 2.0-3.0 Intensive Warfarin Anticoagulant Therapy: INR Reference Range: 2.5-3.5 Alexus Ramirez MD LAB - COAGULATION OR DERABLES Performing Organization Address [facility] de Phone Number [facility] [address] [place] [address] * (ABNORMAL) DIFFERENTIAL MANUAL (08/13/2024 5:[address]) Neutrophil % 90(H) 41 - 74 % 08/13/2024 6:[address] [facility] Lymphocyte % 4(L) 17 - 47 % 08/13/2024 6:34 PM [facility] Monocyte % 1(L) 3 - 11 % 08/13/2024 6:34 PM [facility] Basophil % 1 0 - 2 % 08/13/2024 6:34 PM [facility] Myelocyte % 3(H) 0% % 08/13/2024 6:[address] [facility] Promyelocyte % 1(H) 0% % 08/13/2024 6:34 PM [facility] Neutrophil Absolute 17.91(H) 1.60 - 7.50 x10E9/L 08/13/2024 6:34 PM [facility] Lymphocyte Absolute 0.80(L) 1.00 - 4.40 x10E9/L 08/13/2024 6:34 PM [facility] Monocyte Absolute 0.20 0.15 - 1.00 x10E9/L 08/13/2024 6:34 PM [facility] Basophil Absolute 0.20(H) 0.00 - 0.13 x10E9/L 08/13/2024 6:34 PM [facility] RBC Morphology REVIEWED 08/13/2024 6:34 PM [facility] Blood BLOOD SPECIMEN / Unknown Venipuncture / Unknown 08/13/2024 5:[address] 08/13/2024 5:[address] Alexus Ramirez MD LAB - HEMATOLOGY ORD ERABLES [facility] [address] [place] [address] * (ABNORMAL) CBC W AUTO DIFFERENTIAL (08/13/2024 5:[address]) WBC 19.9(H) 4.0 - 10.7 x10E9/L 08/13/2024 6:34 PM [facility] RBC Count 3.41(L) 3.90 - 5.20 x10E12/L 08/13/2024 6:34 PM [facility] Hemoglobin 10.1(L) 11.9 - 15.8 g/dL 08/13/2024 6:34 PM [facility] Hematocrit 31.0(L) 34.8 - 46.1 % 08/13/2024 6:34 PM [facility] MCV 90.9 80.0 - 98.0 fL 08/13/2024 6:34 PM [facility] MCH 29.6 26.7 - 33.6 pg 08/13/2024 6:34 PM [facility] MCHC 32.6 31.7 - 36.3 g/dL 08/13/2024 6:34 PM [facility] RDW-CV 15.2(H) 11.3 - 14.8 % 08/13/2024 6:34 PM [facility] Platelet Count 340 150 - 420 x10E9/L 08/13/2024 6:[address] [facility] MPV 11.4 7.8 - 11.4 fL 08/13/2024 6:[address] [facility] Blood BLOOD SPECIMEN / Unknown Venipuncture / Unknown 08/13/2024 5:[address] 08/13/2024 5:[address] Alexus Ramirez MD LAB - HEMATOLOGY ORD ERABLES Performing Organization Address [facility] Co de Phone Number [facility] [address] [place] [address] * B-TYPE NATRIURETIC PEPTIDE (08/13/2024 5:[address]ER) Pathologist [facility] BNP 43 <=100 pg/mL 08/13/2024 5:45 PM [facility] Blood BLOOD SPECIMEN / Unknown Venipuncture / Unknown 08/13/2024 5:[address] 08/13/2024 5:[address] Alexus Ramirez MD LAB - CHEMISTRY ORDE RABLES Performing Organization Address [facility] de Phone Number [facility] [address] [place] [address] * (ABNORMAL) COMPREHENSIVE METABOLIC PANEL (08/13/2024 5:[address]) Glucose 396(H) 70 - 99 mg/dL 08/13/2024 5:39 PM [facility] Sodium 135(L) 136 - 145 mmol/L 08/13/2024 5:39 PM [facility] Potassium 5.0 3.5 - 5.1 mmol/L 08/13/2024 5:39 PM [facility] Chloride 99 98 - 107 mmol/L 08/13/2024 5:39 PM [facility] CO2 26 22 - 29 mmol/L 08/13/2024 5:39 PM [facility] Calcium 9.2 8.4 - 10.4 mg/dL 08/13/2024 5:39 PM [facility] Anion Gap 10 6 - 16 mmol/L 08/13/2024 5:39 PM [facility] BUN 28(H) 5.3 - 18.7 mg/dL 08/13/2024 5:[address] [facility] Creatinine 0.89 0.57 - 1.11 mg/dL 08/13/2024 5:39 PM [facility] Alkaline Phosphatase 111 40 - 150 U/L 08/13/2024 5:[address] [facility] ALT 40 0 - 55 U/L 08/13/2024 5:[address] [facility] AST 15 5 - 34 U/L 08/13/2024 5:39 PM [facility] Protein Total 6.8 6.4 - 8.3 gm/dL 08/13/2024 5:39 PM [facility] Albumin 2.6(L) 3.4 - 5.0 gm/dL 08/13/2024 5:39 PM [facility] Bilirubin Total 0.2 0.2 - 1.2 mg/dL 08/13/2024 5:39 PM [facility] eGFR by CKD-EPI 80(L) >=90 mL/min/1.7 3 m2 08/13/2024 5:[address] [facility] Blood BLOOD SPECIMEN / Unknown Venipuncture / Unknown 08/13/2024 5:[address] 08/13/2024 5:[address] Alexus Ramirez MD LAB - CHEMISTRY [place]DMarkos [place] Performing Organization Address City/[facility]/ZIP Co de Phone Number [facility] [address] [place] [address] * PHOSPHORUS BLOOD (08/13/2024 5:[address]) Phosphorus 3.3 2.5 - 4.5 mg/dL 08/13/2024 5:[address] [facility] Blood BLOOD SPECIMEN / Unknown Venipuncture / Unknown 08/13/2024 5:[address] 08/13/2024 5:[address] Alexus Ramirez MD LAB - CHEMISTRY [place]arkos [place] Performing Organization Address City/[facility]/ZIP Co de Phone Number [facility] [address] [place] [address] * MAGNESIUM BLOOD (08/13/2024 5:[address]) Pathologist [facility] Magnesium 2.0 1.6 - 2.6 mg/dL 08/13/2024 5:[address] [facility] Blood BLOOD SPECIMEN / Unknown Venipuncture / Unknown 08/13/2024 5:[address] 08/13/2024 5:[address] Alexus Ramirez MD LAB - CHEMISTRY [place]HAEL [place] Performing Organization Address City/[facility]/ZIP Co de Phone Number [facility] [address] [place] [phone] * LIPASE BLOOD (08/13/2024 5:[address]) Pathologist [facility] Lipase 25 <60 U/L 08/13/2024 5:[address] [facility] Blood BLOOD SPECIMEN / Unknown Venipuncture / Unknown 08/13/2024 5:[address] 08/13/2024 5:[address] Alexus Ramierz MD LAB - CHEMISTRY [place]EL [place] Performing Organization Address [facility] Co de Phone Number [facility] [address] [place] [phone] * LACTIC ACID BLOOD (08/13/2024 5:[address]) [facility] Lactic Acid 1.5 <=2.0 mmol/L 08/13/2024 5:[address] [facility] Blood BLOOD SPECIMEN / Unknown Venipuncture / Unknown 08/13/2024 5:[address] 08/13/2024 5:[address] Alexus Ramirez MD LAB - CHEMISTRY [place]HAEL [place] Performing Organization Address [facility] Co de Phone Number [facility] [phone] [place] [address] [phone] * (ABNORMAL) BLOOD GASES ARTERIAL (08/13/2024 4:[address]) Pathologist [facility] pH Arterial 7.47(H) 7.35 - 7.45 pH 08/13/2024 4:[address] [facility] pO2 Arterial 99 80 - 100 mmHg 08/13/2024 4:[address] [facility] pCO2 Arterial 39 35 - 45 mmHg 08/13/2024 4:[address] [facility] HCO3 Arterial 28.4(H) 22.0 - 26.0 mmol/L 08/13/2024 4:[address] [facility] BE Arterial 4.5(H) -2.0 - 2.0 mmol/L 08/13/2024 4:[address] [facility] O2 Saturation Arterial 99 90 - 100 % 08/13/2024 4:[address] [facility] Sample Site Right RA 08/13/2024 4:[address] [facility] Mode APVcmv 08/13/2024 4:[address] [facility] O2 Device VENT 08/13/2024 4:[address] [facility] FI O2 50.0 % 08/13/2024 4:[address] [facility] Mechanical Tidal Volume (mL) 380 08/13/2024 4:[address] [facility] Mechanical Respiratory Rate (bpm) 22 08/13/2024 4:[address] [facility] PEEP (cmH2O) 10 08/13/2024 4:[address] [facility] Blood, arterial ARTERIAL BLOOD SPECIMEN / Unknown 08/13/2024 4:[address] 08/13/2024 4:[address] Alexus Ramirez MD LAB - BLOOD GASES OR DERABLES [facility] [id number] [phone] * XR CHEST 1VW PORTABLE (08/13/2024 4:[address]) Anatomical Region Laterality Modality Chest Computed Radiogr aphy 08/13/2024 4:[address] Impressions 08/13/2024 4:[address] IMPRESSION: Multiple tubing placements as noted above. Subtle linear streak is present in the left lung. Also the diaphragm.? Atelectasis or scarring. Unfortunately, we have no previous chest imaging studies available at this time. > Interpreting Provider: Ko Olguin MD on 08/13/2024 4:12 PM Narrative 08/13/2024 4:[address] PROCEDURE: XR CHEST 1VW PORTABLE DATE/TIME OF EXAM: 08/13/2024 4:05 PM CLINICAL INFORMATION: None relevant/not provided if blank. Indication: J96.01: Acute respiratory failure with hypoxia (HCC) Additional History: COMPARISON: None. FINDINGS: A single portable view of the chest is available. An endotracheal tube is present with the tip located an estimated 5.2 cm superior to the sherrie. An NG tube is present but the tip is off the lower edge of the image in the abdomen. A right jugular central line is present with the tip extending to the level of the right atrium. publicity manager wires obscure the chest bilaterally. Heart size is at the upper limits of normal. The right lung is clear. The left lung is clear with exception ill-defined streak of density parallel to the left diaphragm. Procedure Note Ko Olguin MD - 08/13/2024 PROCEDURE: XR CHEST 1VW PORTABLE DATE/TIME OF EXAM: 08/13/2024 4:05 PM CLINICAL INFORMATION: None relevant/not provided if blank. Indication: J96.01: Acute respiratory failure with hypoxia (HCC) Additional History: COMPARISON: None. FINDINGS: A single portable view of the chest is available. An endotracheal tubeis present with the tip located an estimated 5.2 cm superior to the sherrie.An NG tube is present but the tip is off the lower edge of the image in the abdomen. A right jugular central line is present with the tip extendingto the level of the right atrium. publicity manager wires obscure the chest bilaterally. Heart size is at the upper limits of normal. The right lungis clear. The left lung is clear with exception ill-defined streak ofdensity parallel to the left diaphragm. IMPRESSION: Multiple tubing placements as noted above. Subtle linear streak is present in the left lung. Also the diaphragm.? Atelectasis or scarring. Unfortunately, we have no previous chestimaging studies available at this time. > Interpreting Provider: Ko Olguin MD on 08/13/2024 4:12 PM Alexus Ramirez MD DIAGNOSTIC IMAGING O RDERABLES from Last 3 Months Advance Directives * Full Code (Latest Code Status on File) Date Activated Date Inactivated Comments 08/13/2024 3:54 PM 08/18/2024 6:24 PM Care Teams Chief Deputy Sheriff Relationship Specialty Start Date End Date Kishor Saleh MD [address] [facility] [address] [address] PCP - General Internal Medicine 07/31/23
--- OUTSIDE RECORDS SUMMARY | 2024-09-22 19:56 | XMS_ITS | Encounter Summary ---
Author Organization [facility] Address [address] [facility] [place] [address] Care Team Providers Care News Writer Name Role Phone Tiffany Cox MD Primary Care Provider Unavailable Kishor Saleh MD Primary Care Provider Encounter Details Date Type Department Care Team (Late st Contact Info) Description 07/03/2023 Lab Requisition [facility] [address] [place] [phone] [place] [address] [facility] [address] [place] [address] [place] [phone] Social History Tobacco Use Types Packs/Day Years Used Date Smoking Tobacco: Never Assessed Sex and Gender Information Value Date Recorded Sex Assigned at Not on file Gender Identity Not on file Sexual Orientation Not on file documented as of this encounter Plan of Treatment Not on file documented as of this encounter Visit Diagnoses Not on filedocumented in this encounter Additional Health Concerns Infection Onset Date Last Indicated Resolved Time COVID-19 Under Investigation 08/13/2024 08/13/2024 08/13/2024 11:30 PM MANAGER PAID documented as of this encounter Care Teams News Writer Relationship Specialty Start Date End Date Tiffany Cox MD PCP - General Internal Medicine 05/16/13 07/30/23 Kishor Saleh MD [address] [place] [address] [address] [place] [address] [place] [id number] PCP - General Internal Medicine 07/31/23 documented as of this encounter
--- OUTSIDE RECORDS SUMMARY | 2024-09-22 19:56 | XMS_ITS | Patient Health Summary ---
Author Organization [facility] [employer] Address [address] [place] [address] Care Team Providers Care Fruit Checker Name Role Phone Kishor Saleh MD Primary Care Provider [phone] Note from [facility],non-owned Affiliates and Associated Physician Practices is amultiple site organization consisting of ambulatory clinics and hospital sitesin [place], [place], [place] and [place]. This disclosure is being madepursuant to the Care Everywhere program and may not contain all information available regarding this patient. Last updated 18.[facility] Allergies * Amlodipine Base(Nausea and/or Vomiting) * Amoxicillin-Pot Clavulanate(Nausea and/or Vomiting) * Glipizide(Nausea and/or Vomiting) * Hydrochlorothiazide(Nausea and/or Vomiting) * Hydrocodone(Nausea and/or Vomiting) * Liraglutide(Nausea and/or Vomiting) * Metformin(Nausea and/or Vomiting) Medications * Be aware that medications may not be up to date on this document. Alwaysverify current medications with the patient. * albuterol (Proventil;Ventolin) (2.5 MG/3ML) 0.083% nebulizer solution Inhale 2.5 (two and one-half) mg by mouth every 6 hours as needed for Shortness of Breath or Wheezing * atorvastatin (Lipitor) 20 MG tablet Take 1 (one) tablet by mouth at bedtime * cetirizine (ZyrTEC) 10 MG tablet Take 1 (one) tablet by mouth once daily * cyclobenzaprine (Flexeril) 10 MG tablet Take 1 (one) tablet by mouth nightly as needed for Muscle Spasms * diphenhydrAMINE (Benadryl) 50 MG capsule Take 1 (one) capsule by mouth every 6 hours as needed for Itching or Allergies * fluticasone propionate (Flonase) 50 MCG/ACT nasal spray Badger 2 (two) sprays into each nostril once daily as needed * hydroxychloroquine (Plaquenil) 200 MG tablet Take 2 (two) tablets by mouth once daily * insulin glargine (Lantus/Semglee) 100 units/mL pen Inject 40 (forty) Units subcutaneously 2 times daily, before breakfast and supper * Insulin Lispro-aabc, 1 U Dial, (Lyumjev KwikPen) 100 UNIT/ML SOPN Inject 10-15 Units subcutaneously 3 times daily before meals Inject 10 units TID before each meal in addition to sliding scale of 1 unit for every glucose 50 mg/dL over 150 mg/dL (1:50 for BG > 150) * montelukast (Singulair) 10 MG tablet Take 1 (one) tablet by mouth at bedtime * tirzepatide (Mounjaro) 10 MG/0.5ML injection Inject 10 (ten) mg subcutaneously every 7 days on Thursday * traMADol (Ultram) 50 MG tablet Take 1 (one) tablet by mouth every 8 hours as needed for Pain * venlafaxine XR 24hr (Effexor XR) 150 MG capsule Take 1 (one) capsule by mouth at bedtime * vitamin D, ergocalciferol, (Drisdol) 1.25 MG (12878 UT) capsule Take 1 (one) capsule by mouth every Thursday & Thursday * acetaminophen (Tylenol) 500 MG tablet Take 1 (one) tablet by mouth every 6 hours as needed for Fever or Pain Maximum allowable Acetaminophen amount = 4 Grams (4000 mg) / 24 hours. * diclofenac sodium EC (Voltaren) 75 MG tablet Take 1 (one) tablet by mouth 2 times daily * folic acid (Folvite) 1 MG tablet Take 1 (one) tablet by mouth once daily * gabapentin (Neurontin) 300 MG capsule Take 1 (one) capsule by mouth 3 times daily as needed * methotrexate 2.5 MG tablet Take 5 (five) tablets by mouth twice daily once a week on * pantoprazole EC (Protonix) 40 MG tablet Take 1 (one) tablet by mouth once daily * predniSONE (Deltasone) 10 MG tablet(Started 08/18/2024) Take 6 (six) tablets by mouth once daily for 5 days, THEN 5 (five) tablets once daily for 5 days, THEN 4 (four) tablets once daily for 60 days. Active Problems Problem Noted Date Diagnosed Date Morbid obesity 08/14/2024 Uncontrolled diabetes mellitus with hyperglycemi a 08/14/2024 Acute hypoxic respiratory failure 08/13/2024 Social History Tobacco Use Types Packs/Day Years [...] any time in the past [address] [facility], were you homeless or living in a skilled nursing (including now)? No 08/15/2024 Sex and Gender Information Value Date Recorded Sex Assigned at Not on file Gender Identity Not on file Sexual Orientation Not on file Last Filed Vital Signs Vital Sign Reading Time Taken Comments Blood Pressure 154/92 08/18/2024 12:25 PM [facility] Pulse 102 08/18/2024 12:25 PM [facility] Temperature 36.7 C (98.1 F) 08/18/2024 12:25 PM [facility] Respiratory Rate 23 08/18/2024 12:2 5 PM [facility] Oxygen Saturation 90% 08/18/2024 12: 25 PM [facility] Inhaled Oxygen Concentration 21% 08/18/2024 2 :00 PM [facility] Weight 132.6 kg (292 lb 4.8 oz) 08/18/2024 4:00 AM [facility]AL [facility] Height 167.6 cm (5' 6 ) 08/13/2024 5:14 PM [facility] Body Mass Index 47.18 08/13/2024 5:14 PM [facility] Procedures * CARDIAC RHYTHM STRIP ORDER(Performed 08/23/2024) * HOME O2 EVAL (DESATURATION SCREEN)(Performed 08/18/2024) * GLUCOSE - POINT OF CARE(Performed 08/18/2024) * GLUCOSE - POINT OF CARE(Performed 08/17/2024) * GLUCOSE - POINT OF CARE(Performed 08/17/2024) * GLUCOSE - POINT OF CARE(Performed 08/17/2024) * GLUCOSE - POINT OF CARE(Performed 08/17/2024) * CBC W/O DIFFERENTIAL(Performed 08/17/2024) * BASIC METABOLIC PANEL (CALCIUM TOTAL)(Performed 08/17/2024) * GLUCOSE - POINT OF CARE(Performed 08/17/2024) * VANCOMYCIN LEVEL TROUGH(Performed 08/16/2024) * GLUCOSE - POINT OF CARE(Performed 08/16/2024) * CBC W/O DIFFERENTIAL(Performed 08/16/2024) * BASIC METABOLIC PANEL (CALCIUM TOTAL)(Performed 08/16/2024) * GLUCOSE - POINT OF CARE(Performed 08/15/2024) * GLUCOSE - POINT OF CARE(Performed 08/15/2024) * GLUCOSE - POINT OF CARE(Performed 08/15/2024) * GLUCOSE - POINT OF CARE(Performed 08/15/2024) * CULTURE BLOOD(Performed 08/15/2024) * CULTURE BLOOD(Performed 08/15/2024) * GLUCOSE - POINT OF CARE(Performed 08/15/2024) * CBC W/O DIFFERENTIAL(Performed 08/15/2024) * BASIC METABOLIC PANEL (CALCIUM TOTAL)(Performed 08/15/2024) * GLUCOSE - POINT OF CARE(Performed 08/14/2024) * GLUCOSE - POINT OF CARE(Performed 08/14/2024) * GLUCOSE - POINT OF CARE(Performed 08/14/2024) * GLUCOSE - POINT OF CARE(Performed 08/14/2024) * GLUCOSE - POINT OF CARE(Performed 08/14/2024) * GLUCOSE - POINT OF CARE(Performed 08/14/2024) * GLUCOSE - POINT OF CARE(Performed 08/14/2024) * GLUCOSE - POINT OF CARE(Performed 08/14/2024) * GLUCOSE - POINT OF CARE(Performed 08/14/2024) * GLUCOSE - POINT OF CARE(Performed 08/14/2024) * GLUCOSE - POINT OF CARE(Performed 08/14/2024) * HEMOGLOBIN A1C(Performed 08/14/2024) * CBC W/O DIFFERENTIAL(Performed 08/14/2024) * BASIC METABOLIC PANEL (CALCIUM TOTAL)(Performed 08/14/2024) * GLUCOSE - POINT OF CARE(Performed 08/14/2024) * GLUCOSE - POINT OF CARE(Performed 08/14/2024) * GLUCOSE - POINT OF CARE(Performed 08/14/2024) * GLUCOSE - POINT OF CARE(Performed 08/13/2024) * STREP PNEUMONIAE ANTIGEN URINE(Performed 08/13/2024) * LEGIONELLA ANTIGEN URINE(Performed 08/13/2024) * RESPIRATORY PANEL WITH SARS-COV-2 BY PCR (STL)(Performed 08/13/2024) * CULTURE BLOOD(Performed 08/13/2024) * CULTURE MRSA(Performed 08/13/2024) * DIFFERENTIAL MANUAL(Performed 08/13/2024) * PTT(Performed 08/13/2024) * PT-INR(Performed 08/13/2024) * PHOSPHORUS BLOOD(Performed 08/13/2024) * MAGNESIUM BLOOD(Performed 08/13/2024) * LIPASE BLOOD(Performed 08/13/2024) * LACTIC ACID BLOOD(Performed 08/13/2024) * COMPREHENSIVE METABOLIC PANEL(Performed 08/13/2024) * CBC W AUTO DIFFERENTIAL(Performed 08/13/2024) * B-TYPE NATRIURETIC PEPTIDE(Performed 08/13/2024) * BCID PANEL(Performed 08/13/2024) * CULTURE BLOOD(Performed 08/13/2024) * GLUCOSE - POINT OF CARE(Performed 08/13/2024) * BLOOD GASES ARTERIAL(Performed 08/13/2024) * XR CHEST 1VW PORTABLE(Performed 08/13/2024) Performed for Acute hypoxic respiratory failure (HCC) * IMMUNOFLUORESCENT STUDY DERM(Performed 07/01/2023) * DERMATOPATHOLOGY(Performed 07/01/2023) Results * CARDIAC RHYTHM STRIP ORDER (08/23/2024 2:41 AM [facility]) Narrative 08/23/2024 2:41 AM [facility] Ordered by an unspecified provider. Scanned Document CARDIAC SERVICES ORD ERABLES * GLUCOSE - POINT OF CARE (08/18/2024 7:46 AM [facility]) Only the most recent of28 resultswithin the time period is included. [facility] Glucose WB/POC 81 70 - 99 mg/dL 08/18/2024 7:51 AM [facility] Specimen Type Cap Fingerstick 2024 7:51 AM [facility] Blood BLOOD SPECIMEN / Unknown 08/18/2024 7:46 AM [facility] 08/18/2024 7:51 AM [facility] Young Mcwilliams MD LAB - POINT OF CARE ORDERABLES [facility] [address] [place] [address] * (ABNORMAL) CBC W/O DIFFERENTIAL (08/17/2024 4:16 AM [facility]) Only the most recent of4 resultswithin the time period is included. Pathologist [facility] WBC 16.3(H) 4.0 - 10.7 x10E9/L 08/17/2024 4:44 AM [facility] RBC Count 3.51(L) 3.90 - 5.20 x10E12/L 08/17/2024 4:44 AM [facility] Hemoglobin 10.3(L) 11.9 - 15.8 g/dL 08/17/2024 4:44 AM [facility] Hematocrit 32.6(L) 34.8 - 46.1 % 08/17/2024 4:44 AM [facility] MCV 92.9 80.0 - 98.0 fL 08/17/2024 4:44 AM [facility] MCH 29.3 26.7 - 33.6 pg 08/17/2024 4:44 AM [facility] MCHC 31.6(L) 31.7 - 36.3 g/dL 08/17/2024 4:44 AM [facility] RDW-CV 15.8(H) 11.3 - 14.8 % 08/17/2024 4:44 AM [facility] Platelet Count 478(H) 150 - 420 x10E9/L 08/17/2024 4:44 AM [facility] MPV 10.4 7.8 - 11.4 fL 08/17/2024 4:44 AM [facility] NRBC 0.8(H) <=0.0 /100 WBC 08/17/2024 4:44 AM [facility] Blood BLOOD SPECIMEN / Unknown Venipuncture / Unknown 08/17/2024 4:16 AM [facility] 08/17/2024 4:30 AM [facility] Alexus Ramirez MD LAB - HEMATOLOGY ORD ERABLES [facility] [address] [place] [address] * (ABNORMAL) BASIC METABOLIC PANEL (CALCIUM TOTAL) (08/17/2024 4:16 AM [facility]) Only the most recent of4 resultswithin the time period is included. Glucose 139(H) 70 - 99 mg/dL 08/17/2024 4:53 AM [facility] Sodium 140 136 - 145 mmol/L 08/17/2024 4:53 AM [facility] Potassium 3.5 3.5 - 5.1 mmol/L 08/17/2024 4:53 AM [facility] Chloride 108(H) 98 - 107 mmol/L 08/17/2024 4:53 AM [facility] CO2 24 22 - 29 mmol/L 08/17/2024 4:53 AM [facility] Calcium 8.9 8.4 - 10.4 mg/dL 08/17/2024 4:53 AM [facility] Anion Gap 8 6 - 16 mmol/L 08/17/2024 4:53 AM [facility] BUN 15 5.3 - 18.7 mg/dL 08/17/2024 4:53 AM [facility] Creatinine 0.65 0.57 - 1.11 mg/dL 08/17/2024 4:53 AM [facility] eGFR by CKD-EPI >90 >=90 mL/min/1.7 3 m2 08/17/2024 4:53 AM [facility] Blood BLOOD SPECIMEN / Unknown Venipuncture / Unknown 08/17/2024 4:16 AM [facility] 08/17/2024 4:30 AM [facility] Alexus Ramirez MD LAB - CHEMISTRY MICHAEL MONTGOMERY Performing Organization Address [facility] de Phone Number [facility] [address] [place] [address] * (ABNORMAL) VANCOMYCIN LEVEL TROUGH (08/16/2024 6:35 PM [facility]) [facility] Vancomycin Trough 6.1(L) 10.0 - 20.0 ug/mL 08/16/2024 7:22 PM [facility] Blood BLOOD SPECIMEN / Unknown Venipuncture / Unknown 08/16/2024 6:35 PM [facility] 08/16/2024 7:02 PM [facility] Anatoliy Wyman MD LAB - CHEMISTRY MICHAEL MONTGOMERY Performing Organization Address [facility] de Phone Number [facility] [address] [place] [address] * CULTURE BLOOD (08/15/2024 8:54 AM [facility]) Only the most recent of4 resultswithin the time period is included. [facility] Culture No growth day 5 LORENZO 08/20/2024 1:31 PM [facility] Blood PERIPHERAL BLOOD / Unknown Venipuncture / Unknown 08/15/2024 8:54 AM [facility] 08/15/2024 9:13 AM [facility] Amadeo Milner MD LAB - MICROBIOLOGY O RDERABLES [facility] [address] [place] [address], [facility] [phone] * (ABNORMAL) HEMOGLOBIN A1C (08/14/2024 3:27 AM [facility]) Hemoglobin A1c 10.1(H) <5.7 % 08/14/2024 3:48 AM [facility] Estimated Average Glucose 243 mg/dL 08/14/2024 3:48 AM [facility] Blood BLOOD SPECIMEN / Unknown Venipuncture / Unknown 08/14/2024 3:27 AM [facility] 08/14/2024 3:37 AM [facility] - 08/14/2024 3:48 AM [facility] HbA1c Interpretation: Normal: < 5.7% Pre-diabetes: 5.7-6.4% [...] exceeds 5% in the specimen. The [place]vo Alinity assay for the measurement of HbA1c is a National Glycohemoglobin Standardization Program (NGSP) certified method. Alexus Ramirez MD LAB - CHEMISTRY MICHAEL MONTGOMERY [facility] [address] [place] [address] * STREP PNEUMONIAE ANTIGEN URINE (08/13/2024 5:17 PM [facility]) Streptococcus pneumoniae Antigen Urine Negative Negative 08/14/2024 8:17 AM [facility] Urine URINE / Unknown Collection / Unknown 08/13/2024 5:17 PM [facility] 08/13/2024 5:22 PM [facility] Narrative [facility] - 08/14/2024 8:17 AM [facility] Patients who have received the Streptococcus pneumoniae [...] - MICROBIOLOGY Blayne BABCOCK Performing Organization Address [facility] Co de Phone Number [facility] [address] [place] [address], [facility] [phone] * LEGIONELLA ANTIGEN URINE (08/13/2024 5:17 PM METAL [facility]ONDER) Pathologist [facility] Legionella Antigen Urine Negative Negative 08/14/2024 8:21 AM [facility] Urine URINE / Unknown Collection / Unknown 08/13/2024 5:17 PM [facility] 08/13/2024 5:22 PM [facility] - 08/14/2024 8:21 AM [facility] This assay detects Legionella pneumophila serogroup one (1) antigen. A negative test result does not rule out the possibility of Legionella infection due to other serogroups or species of Legionella. A positive result may indicate a recent or remote infection with serogroup 1. Alexus Ramirez MD LAB - MICROBIOLOGY [place] Performing Organization Address City/[facility]/ZIP Co de Phone Number [facility] [address] [place] [address], [facility] [phone] * (ABNORMAL) RESPIRATORY PANEL WITH SARS-COV-2 BY PCR (STL) (08/13/2024 5:09 PM [facility]) Adenovirus PCR Not detected Not detected 08/13/2024 11:30 PM [facility] Coronavirus 229E PCR Not detected Not detected 08/13/2024 11:30 PM [facility] Coronavirus HKU1 PCR Not detected Not detected 08/13/2024 11:30 PM [facility] Coronavirus NL63 PCR Not detected Not detected 08/13/2024 11:30 PM [facility] Coronavirus OC43 PCR Not detected Not detected 08/13/2024 11:30 PM [facility] COVID-19 PCR Not detected Not detected 08/13/2024 11:30 PM [facility] Human Metapneumovirus PCR Not detected Not detected 08/13/2024 11:30 PM [facility] Human Rhinovirus/Enterov irus PCR Not detected Not detected 08/13/2024 11:30 PM [facility] Influenza A PCR Not detected Not detected 08/13/2024 11:30 PM [facility] Influenza B PCR Not detected Not detected 08/13/2024 11:30 PM [facility] Parainfluenza Virus 1 PCR Not detected Not detected 08/13/2024 11:30 PM [facility] Parainfluenza Virus 2 PCR Not detected Not detected 08/13/2024 11:30 PM [facility] Parainfluenza Virus 3 PCR Not detected Not detected 08/13/2024 11:30 PM [facility] Parainfluenza Virus 4 PCR Not detected Not detected 08/13/2024 11:30 PM [facility] Respiratory Syncytial Virus PCR Detected(A) Not detected 08/13/2024 11:30 PM [facility] Bordetella parapertussis PCR Not detected Not detected 08/13/2024 11:30 PM [facility] Bordetella pertussis PCR Not detected Not detected 08/13/2024 11:30 PM [facility] Chlamydia pneumoniae PCR Not detected Not detected 08/13/2024 11:30 PM [facility] Mycoplasma pneumoniae PCR Not detected Not detected 08/13/2024 11:30 PM [facility]DER [facility] Microbiology SPECIMEN FROM NASOPHARYNGEAL STRUCTURE / Unknown Collection / Unknown 08/13/2024 5:09 PM [facility] 08/13/2024 5:20 PM [facility] Narrative [facility] - 08/13/2024 11:30 PM [facility] Contact and Droplet Precautions Required. This nucleic amplification assay has received FDA authorization via the [place] Pathway. Alexus Ramirez MD LAB - MICROBIOLOGY [place] Performing Organization Address [facility]/ZIP Co de Phone Number [facility] [address] [place] [address], [facility] [phone] * CULTURE MRSA (08/13/2024 5:09 PM [facility]AL [facility]ONDER) Culture Negative for methicillin-resist ant Staphylococcus aureus (MRSA) LORENZO 08/15/2024 8:16 AM [facility]AL [facility]ONDER [facility] Microbiology SPECIMEN FROM NASAL FOSSAE / Unknown Collection / Unknown 08/13/2024 5:09 PM [facility] 08/13/2024 5:21 PM [facility] Aelxus Ramirez MD LAB - MICROBIOLOGY [place] Performing Organization Address [facility] de Phone Number [facility] [address] [place] [address], [facility] [phone] * (ABNORMAL) BCID PANEL (08/13/2024 5:08 PM [facility]AL [facility]DER) Staphylococcus epidermidis Detected (A) Not detected 08/15/2024 2:03 AM METAL BONDER [facility] MECA/C (Methicillin-Resi stance Gene) Detected (A) Not detected 08/15/2024 2:03 AM METAL BONDER [facility] Comment:Results indicate met hicillin-resistant Staphylococcus epidermidis. Methicillin-resistance detected. Blood PERIPHERAL BLOOD / Unknown Venipuncture / Unknown 08/13/2024 5:08 PM [facility]DER 08/13/2024 5:19 PM [facility] Narrative [facility] - 08/15/2024 2:03 AM [facility] Blood Culture ID Panel performed by [employer] multiplex PCR. The Test panel includes: Gram [...] and MREJ (methicillin-resistance - MRSA), NDM ([place] [id number]-grjqjkihe), OXA-48-like (oxacillinase beta-lactamase),Ashly/B (vancomycin-resistance), VIM (Noa Intergrom-Encoded Metallo beta-lactamase). Alexus Ramirez MD LAB - MICROBIOLOGY O RDERABLES [facility] [address] [place] [address], [facility] [phone] * PTT (08/13/2024 5:08 PM METAL [facility]ONDER) PTT 28.4 23.0 - 38.4 sec 08/13/2024 5:43 PM METAL BONDER [facility] Blood BLOOD SPECIMEN / Unknown Venipuncture / Unknown 08/13/2024 5:08 PM METAL [facility]ONDER 08/13/2024 5:21 PM METAL [facility]ONDER Narrative [facility] - 08/13/2024 5:43 PM METAL [facility]ONDER Heparin Therapeutic Range for PTT: 69.0 - 110.0 seconds. Alexus Ramirez MD LAB - COAGULATION OR DERABLES Performing Organization Address [facility] de Phone Number [facility] [address] [place] [address] * PT-INR (08/13/2024 5:08 PM METAL BONDER) [facility] PT 14.1 12.1 - 14.8 sec 08/13/2024 5:43 PM METAL [facility]ONDER [facility] INR 1.1 0.9 - 1.1 08/13/2024 5:43 PM METAL BONDER [facility] Blood BLOOD SPECIMEN / Unknown Venipuncture / Unknown 08/13/2024 5:08 PM METAL [facility]ONDER 08/13/2024 5:21 PM METAL BONDER Narrative [facility] - 08/13/2024 5:43 PM METAL BONDER Conventional Warfarin Anticoagulant Therapy: INR Reference Range: 2.0-3.0 Intensive Warfarin Anticoagulant Therapy: INR Reference Range: 2.5-3.5 Alexus Ramirez MD LAB - COAGULATION OR DERABLES Performing Organization Address [facility] de Phone Number [facility] [address] [place] [id number] * (ABNORMAL) DIFFERENTIAL MANUAL (08/13/2024 5:08 PM METAL BONDER) [facility] Neutrophil % 90(H) 41 - 74 % 08/13/2024 6:34 PM [facility] Lymphocyte % 4(L) 17 - 47 % 08/13/2024 6:34 PM [facility] Monocyte % 1(L) 3 - 11 % 08/13/2024 6:34 PM [facility] Basophil % 1 0 - 2 % 08/13/2024 6:34 PM [facility] Myelocyte % 3(H) 0% % 08/13/2024 6:34 PM METAL [facility]ONDER [facility] Promyelocyte % 1(H) 0% % 08/13/2024 6:34 PM [facility] Neutrophil Absolute 17.91(H) 1.60 - 7.50 x10E9/L 08/13/2024 6:34 PM METAL BONDER [facility] Lymphocyte Absolute 0.80(L) 1.00 - 4.40 x10E9/L 08/13/2024 6:34 PM METAL BONDER [facility] Monocyte Absolute 0.20 0.15 - 1.00 x10E9/L 08/13/2024 6:34 PM [facility] Basophil Absolute 0.20(H) 0.00 - 0.13 x10E9/L 08/13/2024 6:34 PM [facility] RBC Morphology REVIEWED 08/13/2024 6:34 PM [facility] Blood BLOOD SPECIMEN / Unknown Venipuncture / Unknown 08/13/2024 5:08 PM METAL BONDER 08/13/2024 5:21 PM METAL [facility]ONDER Alexus Ramirez MD LAB - HEMATOLOGY ORD ERABLES [facility] [address] [place] [address] * (ABNORMAL) CBC W AUTO DIFFERENTIAL (08/13/2024 5:08 PM METAL BONDER) WBC 19.9(H) 4.0 - 10.7 x10E9/L 08/13/2024 6:34 PM [facility] RBC Count 3.41(L) 3.90 - 5.20 x10E12/L 08/13/2024 6:34 PM [facility] Hemoglobin 10.1(L) 11.9 - 15.8 g/dL 08/13/2024 6:34 PM [facility] Hematocrit 31.0(L) 34.8 - 46.1 % 08/13/2024 6:34 PM [facility] MCV 90.9 80.0 - 98.0 fL 08/13/2024 6:34 PM [facility] MCH 29.6 26.7 - 33.6 pg 08/13/2024 6:34 PM [facility] MCHC 32.6 31.7 - 36.3 g/dL 08/13/2024 6:34 PM [facility] RDW-CV 15.2(H) 11.3 - 14.8 % 08/13/2024 6:34 PM [facility] Platelet Count 340 150 - 420 x10E9/L 08/13/2024 6:34 PM [facility] MPV 11.4 7.8 - 11.4 fL 08/13/2024 6:34 PM METAL BONDER [facility] Blood BLOOD SPECIMEN / Unknown Venipuncture / Unknown 08/13/2024 5:08 PM METAL BONDER 08/13/2024 5:21 PM METAL BONDER Alexus Ramirez MD LAB - HEMATOLOGY ORD ERABLES Performing Organization Address [facility] Co de Phone Number [facility] [id number] [place] [phone] * B-TYPE NATRIURETIC PEPTIDE (08/13/2024 5:08 PM METAL BONDER) BNP 43 <=100 pg/mL 08/13/2024 5:45 PM [facility] Blood BLOOD SPECIMEN / Unknown Venipuncture / Unknown 08/13/2024 5:08 PM METAL BONDER 08/13/2024 5:21 PM METAL BONDER Alexus Ramirez MD LAB - CHEMISTRY ORDE RABLES Performing Organization Address [facility] Co de Phone Number [facility] [id number] [place] [phone] * (ABNORMAL) COMPREHENSIVE METABOLIC PANEL (08/13/2024 5:08 PM METAL BONDER) Glucose 396(H) 70 - 99 mg/dL 08/13/2024 5:39 PM [facility] Sodium 135(L) 136 - 145 mmol/L 08/13/2024 5:39 PM [facility] Potassium 5.0 3.5 - 5.1 mmol/L 08/13/2024 5:39 PM [facility] Chloride 99 98 - 107 mmol/L 08/13/2024 5:39 PM [facility] CO2 26 22 - 29 mmol/L 08/13/2024 5:39 PM [facility] Calcium 9.2 8.4 - 10.4 mg/dL 08/13/2024 5:39 PM [facility] Anion Gap 10 6 - 16 mmol/L 08/13/2024 5:39 PM [facility] BUN 28(H) 5.3 - 18.7 mg/dL 08/13/2024 5:39 PM METAL BONDER [facility] Creatinine 0.89 0.57 - 1.11 mg/dL 08/13/2024 5:39 PM METAL BONDER [facility] Alkaline Phosphatase 111 40 - 150 U/L 08/13/2024 5:39 PM METAL BONDER [facility] ALT 40 0 - 55 U/L 08/13/2024 5:39 PM METAL BONDER [facility] AST 15 5 - 34 U/L 08/13/2024 5:39 PM METAL BONDER [facility] Protein Total 6.8 6.4 - 8.3 gm/dL 08/13/2024 5:39 PM METAL BONDER [facility] Albumin 2.6(L) 3.4 - 5.0 gm/dL 08/13/2024 5:39 PM METAL BONDER [facility] Bilirubin Total 0.2 0.2 - 1.2 mg/dL 08/13/2024 5:39 PM [facility] eGFR by CKD-EPI 80(L) >=90 mL/min/1.7 3 m2 08/13/2024 5:39 PM METAL BONDER [facility] Blood BLOOD SPECIMEN / Unknown Venipuncture / Unknown 08/13/2024 5:08 PM METAL BONDER 08/13/2024 5:21 PM METAL BONDER Alexus Ramirez MD LAB - CHEMISTRY MICHAEL MONTGOMERY Performing Organization Address City/[facility]/ZIP Co de Phone Number [facility] [address] [place], [place] [phone] * PHOSPHORUS BLOOD (08/13/2024 5:08 PM METAL BONDER) Phosphorus 3.3 2.5 - 4.5 mg/dL 08/13/2024 5:39 PM METAL BONDER [facility] Blood BLOOD SPECIMEN / Unknown Venipuncture / Unknown 08/13/2024 5:08 PM METAL BONDER 08/13/2024 5:21 PM METAL BONDER Alexus Ramirez MD LAB - CHEMISTRY MICHAEL MONTGOMERY Performing Organization Address City/[facility]/ZIP Co de Phone Number [facility] [address] [place], [place] [phone] * MAGNESIUM BLOOD (08/13/2024 5:08 PM METAL BONDER) Magnesium 2.0 1.6 - 2.6 mg/dL 08/13/2024 5:39 PM METAL BONDER [facility] Blood BLOOD SPECIMEN / Unknown Venipuncture / Unknown 08/13/2024 5:08 PM METAL BONDER 08/13/2024 5:21 PM METAL BONDER Alexus Ramirez MD LAB - CHEMISTRY MICHAEL MONTGOMERY Performing Organization Address [facility] Co de Phone Number [facility] [address] [place] [phone] * LIPASE BLOOD (08/13/2024 5:08 PM METAL BONDER) Lipase 25 <60 U/L 08/13/2024 5:39 PM METAL BONDER [facility] Blood BLOOD SPECIMEN / Unknown Venipuncture / Unknown 08/13/2024 5:08 PM METAL BONDER 08/13/2024 5:21 PM METAL BONDER Alexus Ramirez MD LAB - CHEMISTRY MICHAEL MONTGOMERY Performing Organization Address [facility] de Phone Number [facility] [address] [place] [phone] * LACTIC ACID BLOOD (08/13/2024 5:08 PM METAL BONDER) Lactic Acid 1.5 <=2.0 mmol/L 08/13/2024 5:39 PM METAL BONDER [facility] Blood BLOOD SPECIMEN / Unknown Venipuncture / Unknown 08/13/2024 5:08 PM METAL BONDER 08/13/2024 5:21 PM METAL BONDER Alexus Ramirez MD LAB - CHEMISTRY MICHAEL MONTGOMERY Performing Organization Address [facility] de Phone Number [facility] [address] [place] [phone] * (ABNORMAL) BLOOD GASES ARTERIAL (08/13/2024 4:16 PM METAL BONDER) pH Arterial 7.47(H) 7.35 - 7.45 pH 08/13/2024 4:34 PM METAL BONDER [facility] pO2 Arterial 99 80 - 100 mmHg 08/13/2024 4:34 PM METAL BONDER [facility] pCO2 Arterial 39 35 - 45 mmHg 08/13/2024 4:34 PM METAL BONDER [facility] HCO3 Arterial 28.4(H) 22.0 - 26.0 mmol/L 08/13/2024 4:34 PM METAL BONDER [facility] BE Arterial 4.5(H) -2.0 - 2.0 mmol/L 08/13/2024 4:34 PM METAL BONDER [facility] O2 Saturation Arterial 99 90 - 100 % 08/13/2024 4:34 PM METAL BONDER [facility] Sample Site Right RA 08/13/2024 4:34 PM METAL BONDER [facility] Mode APVcmv 08/13/2024 4:34 PM METAL BONDER [facility] O2 Device VENT 08/13/2024 4:34 PM METAL BONDER [facility] FI O2 50.0 % 08/13/2024 4:34 PM METAL BONDER [facility] Mechanical Tidal Volume (mL) 380 08/13/2024 4:34 PM METAL BONDER [facility] Mechanical Respiratory Rate (bpm) 22 08/13/2024 4:34 PM METAL BONDER [facility] PEEP (cmH2O) 10 08/13/2024 4:34 PM METAL BONDER [facility] Blood, arterial ARTERIAL BLOOD SPECIMEN / Unknown 08/13/2024 4:16 PM METAL BONDER 08/13/2024 4:16 PM METAL BONDER Alexus Ramirez MD LAB - BLOOD GASES OR DERABLES [facility] [address] [phone] * XR CHEST 1VW PORTABLE (08/13/2024 4:04 PM METAL BONDER) Anatomical Region Laterality Modality Chest Computed Radiogr aphy 08/13/2024 4:10 PM METAL BONDER Impressions 08/13/2024 4:12 PM METAL BONDER IMPRESSION: Multiple tubing placements as noted above. Subtle linear streak is present in the left lung. Also the diaphragm.? Atelectasis or scarring. Unfortunately, we have no previous chest imaging studies available at this time. > Interpreting Provider: Ko Olguin MD on 08/13/2024 4:12 PM Narrative 08/13/2024 4:12 PM METAL BONDER PROCEDURE: XR CHEST 1VW PORTABLE DATE/TIME OF [...] to the level of the right atrium. teletypesetter monitor wires obscure the chest bilaterally. Heart size [...] extendingto the level of the right atrium. teletypesetter monitor wires obscure the chest bilaterally. Heart size [...] Alexus Ramirez MD DIAGNOSTIC IMAGING O RDERABLES * IMMUNOFLUORESCENT STUDY DERM (07/01/2023 3:33 AM METAL BONDER) Case Report Dermatopathol ogmarcell Report Case: [id number] Authorizing Provider: Kendrick Christopher MD Collected: 07/01/2023 03:33 AM Ordering Location: [facility] DermPath Lab Received: 07/03/2023 12:13 PM Pathologist: Bella Schwab MD Specimen: Skin, right superior han 3:46 PM METAL BONDER DERMATOPATHOLOGY LABORATORY Final Diagnosis Specimen A. SKIN, right superior han: COLLOID BODIES (L98.9) (see microscopic description) (see fixed tissue results) 3:46 PM [facility] DERMATOPATHOLOGY [facility]OR[facility] Direct Immunofluorescence Report - Specimen A Specimen A IgA IgM IgG C3 CollV Fibrinogen Epidermis Negative Negative Negative Negative Negative Negative Basement Membrane Negative Negative Negative Negative 2+ Negative Vessels Negative Negative Negative Negative 2+ Negative Interstitium Colloid Colloid Colloid Negative Negative Non specific 3:46 PM [facility]AL [facility]ONDER DERMATOPATHOLOGY LABORATORY Clinical History Rash; R/O Leukocytoclas tic Vasculitis, Livedo Reticularis 3:46 PM [facility]Y [facility] Gross Description Specimen A: Received is one Jatinder's media filled container labeled with the patient's name and designated right superior han. The specimen consists of a punch biopsy measuring 5x4x4 mm. The specimen is submitted in whole for direct immunofluores cence testing. 3:46 PM [facility] Microscopic Description Specimen A. SKIN, right superior han: Controls were run in parallel. There is IgA, IgG and IgM in the papillary dermis consistent with colloid bodies. Staining is negative with C3. Collagen IV stains the basement membrane zone and vessels. Fibrinogen shows non-specific staining. Colloid bodies represent dyskeratotic keratinocytes that can be seen in lichenoid / interface dermatitis or in areas of chronic irritation / rubbing. See fixed tissue results. 3:46 PM [facility]ERMAT[facility] Disclaimer An external and internal positive and negative controls are appropriate for the histochemical , immunohistoch emical and immunofluores cence stain(s) in this case (if any), except where stated explicitly. The performance characteristi cs of the stain(s) cited in this report were developed and its performance characteristi c determined by the Dermatopathol ogy Laboratory at [facility], directed by Dr. Arnol Perea. These tests need not be, and therefore are not, approved by the [place] Food and Drug Administratio n. The tests are used for clinical purposes. Billing Codes Specimen Charges Stain Charges 04771 16520 56380 [id number] [id number] 44952 1 1 1 1 1 1 3 3:46 PM METAL BONDER DERMATOPATHOLOGY LABORATORY Embedded Images 3:46 PM METAL BONDER DERMATOPATHOLOGY LABORATORY Pathology/Cytolo gy TISSUE SPECIMEN FROM SKIN / Unknown 07/01/2023 3:33 AM METAL BONDER 07/03/2023 12:13 PM METAL BONDER Kendrick Christopher MD LAB - PATHOLOGY/CY TOLOGY ORDERABLES DERMATOPATHOLOGY LABORATORY [facility] - Department of Dermatology [facility] Medicine [address] [place] [address], [address] [phone] * DERMATOPATHOLOGY (07/01/2023 3:33 AM METAL BONDER) Case Report Dermatopathology Report Case: [id number] Authorizing Provider: Kendrick Christopher MD Collected: 07/01/2023 03:33 AM Ordering Location: [facility] DermPath Lab Received: 07/03/2023 12:12 PM Pathologist: Bella Schwab MD Specimen: Skin, right inferior knee 3:45 PM METAL BONDER DERMATOPATHOLOGY LABORATORY Final Diagnosis Specimen A. SKIN, right inferior knee: STASIS DERMATITIS (L30.8) DERMAL FIBROSIS (L90.5) (see microscopic description) 3:45 PM METAL [facility]ONDER DERMATOPATHOLOGY LABORATORY Clinical History Rash; R/O Leukocytoclastic Vasculitis, Livedo Reticularis 3 3:45 PM METAL BONDER DERMATOPATHOLOGY LABORATORY Gross Description Specimen A: Received is one formalin filled container labeled with the patient's name and designated right inferior knee. The specimen consists of a punch biopsy measuring 6x5x6 mm. Jar 0. 3 3:45 PM [facility] DERMATOPATH[facility]Y [facility] Microscopic Description Specimen A. SKIN, right inferior knee: There is focal spongiosis. The dermis shows a perivascular lymphocytic infiltrate surrounding dilated, thick-walled vessels, which are increased in number. There is dermal fibrosis. No vasculitis or vasculopathy of the dermal vessels is appreciated. Periodic acid-Migel (PAS) stain fails to highlight fungal elements in the available sections. Additional deeper sections were obtained and reviewed. 3 3:45 PM [facility] DERMATOPATHOLOGY [facility]ATORY Disclaimer An external and internal positive and negative controls are appropriate for the histochemical, immunohistochemical and immunofluorescence stain(s) in this case (if any), except where stated explicitly. The performance characteristics of the stain(s) cited in this report were developed and its performance characteristic determined by the Dermatopathology Laboratory at [facility], directed by Dr. Arnol Perea. These tests need not be, and therefore are not, approved by the [place] Food and Drug Administration. The tests are used for clinical purposes. Billing Codes Specimen Charges Stain Charges 34346 1 41157 1 3 3:45 PM [facility] DERMATOPATHOLOGY LABORATORY Embedded Images 3 3:45 PM [facility] DERMATOPATHOLOGY LAB[facility]ORY Pathology/Cytolo gy TISSUE SPECIMEN FROM SKIN / Unknown 07/01/2023 3:33 AM METAL BONDER 07/03/2023 12:12 PM METAL BONDER Kendrick Christopher MD LAB - PATHOLOGY/CY TOLOGY ORDERABLES DERMATOPATHOLOGY LABORATORY [facility] - Department of Dermatology [facility] [address] [place] [address], [address] [phone] Care Teams Fruit Checker Relationship Specialty Start Date End Date Kishor Saleh MD [address] [place] [address] DR SUT[place] [address] [place] [address] PCP - General Internal Medicine 07/31/23
--- OUTSIDE RECORDS SUMMARY | 2024-09-22 19:56 | XMS_ITS | Encounter Summary ---
Author Organization [facility] Address [address] [facility] [place] [address] Care Team Providers Care Firing Pin Gauger Name Role Phone Tiffany Cox MD Primary Care Provider Unavailable Kishor Saleh MD Primary Care Provider [phone] Encounter Details Date Type Department Care Team (Late st Contact Info) Description 07/03/2023 Lab Requisition [facility] - DermPath Lab [address] [place] [phone] [place] [address] [facility] [address] S[place] [address] [place] [address] Social History Tobacco Use Types Packs/Day [...] Under Investigation 08/13/2024 08/13/2024 08/13/2024 11:30 PM MACHINE 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
--- OUTSIDE RECORDS SUMMARY | 2024-09-22 19:56 | XMS_ITS | Encounter Summary ---
Author Organization [facility] Address [address] [place] [address] Care Team Providers Care Planting Material Carrier Name Role Phone Tiffany Cox MD Primary Care Provider Unavailable Kishor Saleh MD Primary Care Provider Encounter Details Date Type Department Care Team (Late st Contact Info) Description 07/03/2023 Lab Requisition [facility] - DermPath Lab [address] [facility] [place] [address] [place] [address] [address] Social History Tobacco Use Types Packs/Day Years Used Date Smoking Tobacco: Never Assessed Sex and Gender Information Value Date Recorded Sex Assigned at Not on file Gender Identity Not on file Sexual Orientation Not on file documented as of this encounter Plan of Treatment Not on file documented as of this encounter Procedures Procedure Name Priority Date/Time Associated Diagnosis Comments DERMATOPATHOLOGY Routine 07/01/2023 3:33 AM STATEMENT PROCESSOR documented in this encounter Results * DERMATOPATHOLOGY (07/01/2023 3:33 AM STATEMENT PROCESSOR) Case Report Dermatopathology Report Case: [id number] Authorizing Provider: Kendrick Christopher MD Collected: 07/01/2023 03:33 AM Ordering Location: [facility] DermPath Lab Received: 07/03/2023 12:12 PM Pathologist: Bella Schwab MD Specimen: Skin, right inferior knee 3:45 PM [facility] DERMATOPATHOLOGY LABORATORY Final Diagnosis Specimen A. SKIN, right inferior knee: STASIS DERMATITIS (L30.8) DERMAL FIBROSIS (L90.5) (see microscopic description) 3 3:45 PM [facility] DERMATOPATHOLOGY LABORATORY Clinical History Rash; R/O Leukocytoclastic Vasculitis, Livedo Reticularis 3 3:45 PM [facility] DERMATOPATHOLOGY LABORATORY Gross Description Specimen A: Received is one formalin filled container labeled with the patient's name and designated right inferior knee. The specimen consists of a punch biopsy measuring 6x5x6 mm. Jar 0. 3 3:45 PM [facility] DERMATOPATHOLOGY LABORATORY Microscopic Description Specimen [...] were obtained and reviewed. 3 3:45 PM [facility] DERMATOPATHOLOGY LABORATORY Disclaimer An external and internal positive and negative controls are appropriate for the histochemical, immunohistochemical and immunofluorescence stain(s) in this case (if any), except where stated explicitly. The performance characteristics of the stain(s) cited in this report were developed and its performance characteristic determined by the Dermatopathology Laboratory at [facility], directed by Dr. Arnol Perea. These tests need not be, and therefore are not, approved by the [place] Food and Drug Administration. The tests are used for clinical purposes. Billing Codes Specimen Charges Stain Charges 42834 1 70579 1 3 3:45 PM [facility] DERMATOPATHOLOGY LABORATORY Embedded Images 3 3:45 PM [facility] DERMATOPATHOLOGY LABORATORY Pathology/Cytolo gy TISSUE SPECIMEN FROM SKIN / Unknown 07/01/2023 3:33 AM STATEMENT PROCESSOR 07/03/2023 12:12 PM STATEMENT PROCESSOR Kendrick Christopher MD LAB - PATHOLOGY/CY TOLOGY ORDERABLES DERMATOPATHOLOGY LABORATORY [facility] - Department of Dermatology [facility] [address] [facility], [address]rd [address] [phone] documented in this encounter Visit Diagnoses Not on filedocumented in this encounter Additional Health Concerns Infection Onset Date Last Indicated Resolved Time COVID-19 Under Investigation 08/13/2024 08/13/2024 08/13/2024 11:30 PM STATEMENT PROCESSOR documented as of this encounter Care Teams Planting Material Carrier Relationship Specialty Start Date End Date Tiffany Cox MD PCP - General Internal Medicine 05/16/13 07/30/23 Kishor Saleh MD [address] [facility] [address] [address] PCP - General Internal Medicine 07/31/23 documented as of this encounter
--- OUTSIDE RECORDS SUMMARY | 2024-09-22 19:56 | XMS_ITS | Encounter Summary ---
Author Organization [facility] Address [address] [facility] [place] [address] Care Team Providers Care Sustainability Project Coordinator Name Role Phone Tiffany Cox MD Primary Care Provider Unavailable Kishor Saleh MD Primary Care Provider [phone] Encounter Details Date Type Department Care Team (Late st Contact Info) Description 07/03/2023 Lab Requisition [facility] - DermPath Lab [address] [place] [phone] [place] [address] [facility] [address] S[place] [address] [place] [address] Social History Tobacco Use Types Packs/Day [...] Under Investigation 08/13/2024 08/13/2024 08/13/2024 11:30 PM JEWEL 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
--- OUTSIDE RECORDS SUMMARY | 2024-09-22 19:56 | XMS_ITS | Encounter Summary ---
Author Organization [facility] Address [address] [place], [place] [address] Care Team Providers Care Headend Technician Name Role Phone Tiffany Cox MD Primary Care Provider Unavailable Kishor Saleh MD Primary Care Provider [phone] Encounter Details Date Type Department Care Team (Late st Contact Info) Description 07/03/2023 Lab Requisition [facility] - Derm[facility] Lab [address] [facility] [address] [place] [address] [place] [id number] [address] Social History Tobacco Use Types Packs/Day Years Used Date Smoking Tobacco: Never Assessed Sex and Gender Information Value Date Recorded Sex Assigned at Not on file Gender Identity Not on file Sexual Orientation Not on file documented as of this encounter Plan of Treatment Not on file documented as of this encounter Procedures Procedure Name Priority Date/Time Associated Diagnosis Comments IMMUNOFLUORESCENT STUDY DERM Routine 07/01/2023 3:33 AM [facility] documented in this encounter Results * IMMUNOFLUORESCENT STUDY DERM (07/01/2023 3:33 AM [facility]) Case Report Dermatopathol ogy Report Case: [id number] Authorizing Provider: Kendrick Christopher MD Collected: 07/01/2023 03:33 AM Ordering Location: [facility] Lab Received: 07/03/2023 12:13 PM Pathologist: Bella Schwab MD Specimen: Skin, right superior han 3:46 PM [facility] Final Diagnosis Specimen A. SKIN, right superior han: COLLOID BODIES (L98.9) (see microscopic description) (see fixed tissue results) 3 3:46 PM [facility] Direct Immunofluorescence Report - Specimen A Specimen A IgA IgM IgG C3 CollV Fibrinogen Epidermis Negative Negative Negative Negative Negative Negative Basement Membrane Negative Negative Negative Negative 2+ Negative Vessels Negative Negative Negative Negative 2+ Negative Interstitium Colloid Colloid Colloid Negative Negative Non specific 3 3:46 PM [facility] Clinical History Rash; R/O Leukocytoclas tic Vasculitis, Livedo Reticularis 3:46 PM [facility] Gross Description Specimen A: Received is one [employer] media filled container labeled with the patient's name and designated right superior han. The specimen consists of a punch biopsy measuring 5x4x4 mm. The specimen is submitted in whole for direct immunofluores cence testing. 3:46 PM [facility] Microscopic Description [...] irritation / rubbing. See fixed tissue results. 3 3:46 PM [facility] Disclaimer An external and internal positive and negative controls are appropriate for the histochemical , immunohistoch emical and immunofluores cence stain(s) in this case (if any), except where stated explicitly. The performance characteristi cs of the stain(s) cited in this report were developed and its performance characteristi c determined by the Dermatopathol ogy Laboratory at [facility], directed by Dr. Arnol Perea. These tests need not be, and therefore are not, approved by the [place] Food and Drug Administratio n. The tests are used for clinical purposes. Billing Codes Specimen Charges Stain Charges 31851 [id number] 1 1 1 1 1 1 3 3:46 PM [facility] Embedded Images 3 3:46 PM [facility] Pathology/Cytolo gy TISSUE SPECIMEN FROM SKIN / Unknown 07/01/2023 3:33 AM [facility] 07/03/2023 12:13 PM [facility] Kendrick Christopher MD LAB - PATHOLOGY/CY TOLOGY ORDERABLES DERMATOPATHOLOGY LABORATORY [facility] - Department of Dermatology [facility] [address] [place] [address], [address] [phone] documented in this encounter Visit Diagnoses Not on filedocumented in this encounter Additional Health Concerns Infection Onset Date Last Indicated Resolved Time COVID-19 Under Investigation 08/13/2024 08/13/2024 08/13/2024 11:30 PM [facility] documented as of this encounter Care Teams Headend Technician Relationship Specialty Start Date End Date Tiffany Cox MD PCP - General Internal Medicine 05/16/13 07/30/23 Kishor Saleh MD [address] [address] [place] [address] [place] [id number] PCP - General Internal Medicine 07/31/23 documented as of this encounter
--- OUTSIDE RECORDS SUMMARY | 2024-09-22 19:56 | XMS_ITS | Referral Summary ---
Author Organization [facility] Address [address] [place] [address] Care Team Providers Care Assisted Living Executive Director Name Role Phone Kishor Saleh MD Primary Care Provider Source Comments [facility],non-owned Affiliates and Associated Physician Practices is amultiple site organization consisting of ambulatory clinics and hospital sitesin [place], [place], [place] and [place]. This disclosure is being madepursuant to the Care Everywhere program and may not contain all information available regarding this patient. Last updated 18.[facility] Encounters Date Type Department Care Team Description 08/13/2024 3:43 PM FIRE SAFETY INSPECTOR - 08/18/2024 5:19 PM FIRE SAFETY INSPECTOR Hospital Encounter [facility] [address] [place], [place] [id number] Alexus Ramirez MD Ramgopal, Britney Martin, MD Fatima, Noor E, MD Yu, Yang, MD Zhu, He, MD Hospitalist Discharge Disposition: Home or Self Care 08/13/2024 Travel from Last 3 Months Allergies Active Allergy [...] fluticasone propionate (Flonase) 50 MCG/ACT nasal spray [place] 2 (two) sprays into each nostril once daily as needed Active hydroxychloroqui ne (Plaquenil) 200 MG tablet Take 2 (two) tablets by mouth once daily Active insulin glargine (Lantus/Semglee) 100 units/mL pen Inject 40 (forty) Units subcutaneously 2 times daily, before breakfast and supper Active Insulin Lispro-aabc, 1 U Dial, (Lorenza Flood) 100 UNIT/ML SOPN Inject 10-15 Units subcutaneously [...] Active vitamin D, ergocalciferol, (Drisdol) 1.25 MG (29321 UT) capsule Take 1 (one) capsule by [...] any time in the past 12 m [facility], were you homeless or living in a nursing home (including now)? No 08/15/2024 Sex and Gender Information Value Date Recorded Sex Assigned at Not on file Gender Identity Not on file Sexual Orientation Not on file Last Filed Vital Signs Vital Sign Reading Time Taken Comments Blood Pressure 154/92 08/18/2024 12:25 PM FIRE SAFETY INSPECTOR Pulse 102 08/18/2024 12:25 PM FIRE SAFETY INSPECTOR Temperature 36.7 C (98.1 F) 08/18/2024 12:25 PM FIRE SAFETY INSPECTOR Respiratory Rate 23 08/18/2024 12:2 5 PM FIRE SAFETY INSPECTOR Oxygen Saturation 90% 08/18/2024 12: 25 PM FIRE SAFETY INSPECTOR Inhaled Oxygen Concentration 21% 08/18/2024 2 :00 PM FIRE SAFETY INSPECTOR Weight 132.6 kg (292 lb 4.8 oz) 08/18/2024 4:00 AM FIRE SAFETY INSPECTOR Height 167.6 cm (5' 6 ) 08/13/2024 5:14 PM FIRE SAFETY INSPECTOR Body Mass Index 47.18 08/13/2024 5:14 PM FIRE SAFETY INSPECTOR Functional Status Functional Status Response Date of Assess ment Is person deaf or have serious hearing difficult y? No 08/15/2024 Is person blind or have serious difficulty seein g? No 08/15/2024 Does person have serious dif ficulty walking/climbing stairs? Yes 08/15/2024 Does person have difficulty dressing/bathing? Ye s 08/15/2024 Does person have difficulty doing errands alone? Yes 08/15/2024 Cognitive Status Response Date of Assessm ent Does person have difficulty concentrating/remembering/making decisions? No 08/15/2024 Plan of Treatment Not on file Procedures Procedure Name Priority Date/Time Associated Diagnosis Comments CARDIAC RHYTHM STRIP ORDER 08/23/2024 2:41 AM FIRE SAFETY INSPECTOR HOME O2 EVAL (DESATURATION SCREEN) Routine 08/18/2024 10:39 AM FIRE SAFETY INSPECTOR GLUCOSE - POINT OF CARE Routine 08/18/2024 7:46 AM FIRE SAFETY INSPECTOR GLUCOSE - POINT OF CARE Routine 08/17/2024 9:47 PM FIRE SAFETY INSPECTOR GLUCOSE - POINT OF CARE Routine 08/17/2024 5:03 PM FIRE SAFETY INSPECTOR GLUCOSE - POINT OF CARE Routine 08/17/2024 12:36 PM FIRE SAFETY INSPECTOR GLUCOSE - POINT OF CARE Routine 08/17/2024 7:48 AM FIRE SAFETY INSPECTOR CBC W/O DIFFERENTIAL AM Draw 08/17/2024 4:16 AM FIRE SAFETY INSPECTOR BASIC METABOLIC PANEL (CALCIUM TOTAL) AM Draw 08/17/2024 4:16 AM FIRE SAFETY INSPECTOR GLUCOSE - POINT OF CARE Routine 08/17/2024 12:18 AM FIRE SAFETY INSPECTOR VANCOMYCIN LEVEL TROUGH Timed 08/16/2024 6:35 PM FIRE SAFETY INSPECTOR GLUCOSE - POINT OF CARE Routine 08/16/2024 6:43 AM FIRE SAFETY INSPECTOR CBC W/O DIFFERENTIAL AM Draw 08/16/2024 4:59 AM FIRE SAFETY INSPECTOR BASIC METABOLIC PANEL (CALCIUM TOTAL) AM Draw 08/16/2024 4:59 AM FIRE SAFETY INSPECTOR GLUCOSE - POINT OF CARE Routine 08/15/2024 10:15 PM FIRE SAFETY INSPECTOR GLUCOSE - POINT OF CARE Routine 08/15/2024 4:36 PM FIRE SAFETY INSPECTOR GLUCOSE - POINT OF CARE Routine 08/15/2024 2:22 PM FIRE SAFETY INSPECTOR GLUCOSE - POINT OF CARE Routine 08/15/2024 12:24 PM FIRE SAFETY INSPECTOR CULTURE BLOOD Timed 08/15/2024 8:54 AM FIRE SAFETY INSPECTOR CULTURE BLOOD Timed 08/15/2024 8:45 AM FIRE SAFETY INSPECTOR GLUCOSE - POINT OF CARE Routine 08/15/2024 5:48 AM FIRE SAFETY INSPECTOR CBC W/O DIFFERENTIAL AM Draw 08/15/2024 3:33 AM FIRE SAFETY INSPECTOR BASIC METABOLIC PANEL (CALCIUM TOTAL) AM Draw 08/15/2024 3:33 AM FIRE SAFETY INSPECTOR GLUCOSE - POINT OF CARE Routine 08/14/2024 11:41 PM FIRE SAFETY INSPECTOR GLUCOSE - POINT OF CARE Routine 08/14/2024 6:04 PM FIRE SAFETY INSPECTOR GLUCOSE - POINT OF CARE Routine 08/14/2024 12:04 PM FIRE SAFETY INSPECTOR GLUCOSE - POINT OF CARE Routine 08/14/2024 10:07 AM FIRE SAFETY INSPECTOR GLUCOSE - POINT OF CARE Routine 08/14/2024 9:14 AM FIRE SAFETY INSPECTOR GLUCOSE - POINT OF CARE Routine 08/14/2024 8:22 AM FIRE SAFETY INSPECTOR GLUCOSE - POINT OF CARE Routine 08/14/2024 7:16 AM FIRE SAFETY INSPECTOR GLUCOSE - POINT OF CARE Routine 08/14/2024 6:28 AM FIRE SAFETY INSPECTOR GLUCOSE - POINT OF CARE Routine 08/14/2024 5:31 AM FIRE SAFETY INSPECTOR GLUCOSE - POINT OF CARE Routine 08/14/2024 4:30 AM FIRE SAFETY INSPECTOR GLUCOSE - POINT OF CARE Routine 08/14/2024 3:27 AM FIRE SAFETY INSPECTOR HEMOGLOBIN A1C Routine 08/14/2024 3:27 AM FIRE SAFETY INSPECTOR CBC W/O DIFFERENTIAL AM Draw 08/14/2024 3:27 AM FIRE SAFETY INSPECTOR BASIC METABOLIC PANEL (CALCIUM TOTAL) AM Draw 08/14/2024 3:27 AM FIRE SAFETY INSPECTOR GLUCOSE - POINT OF CARE Routine 08/14/2024 2:33 AM FIRE SAFETY INSPECTOR GLUCOSE - POINT OF CARE Routine 08/14/2024 1:29 AM FIRE SAFETY INSPECTOR GLUCOSE - POINT OF CARE Routine 08/14/2024 12:23 AM FIRE SAFETY INSPECTOR GLUCOSE - POINT OF CARE Routine 08/13/2024 8:07 PM FIRE SAFETY INSPECTOR STREP PNEUMONIAE ANTIGEN URINE Routine 08/13/2024 5:17 PM FIRE SAFETY INSPECTOR LEGIONELLA ANTIGEN URINE Routine 08/13/2024 5:17 PM FIRE SAFETY INSPECTOR RESPIRATORY PANEL WITH SARS-COV-2 BY PCR (STL) Routine 08/13/2024 5:09 PM FIRE SAFETY INSPECTOR CULTURE BLOOD Timed 08/13/2024 5:09 PM FIRE SAFETY INSPECTOR CULTURE MRSA Routine 08/13/2024 5:09 PM FIRE SAFETY INSPECTOR DIFFERENTIAL MANUAL STAT 08/13/2024 5 :08 PM FIRE SAFETY INSPECTOR PTT STAT 08/13/2024 5:08 PM FIRE SAFETY INSPECTOR PT-INR STAT 08/13/2024 5:08 PM FIRE SAFETY INSPECTOR PHOSPHORUS BLOOD STAT 08/13/2024 5:08 PM FIRE SAFETY INSPECTOR MAGNESIUM BLOOD STAT 08/13/2024 5:08 PM FIRE SAFETY INSPECTOR LIPASE BLOOD STAT 08/13/2024 5:08 PM FIRE SAFETY INSPECTOR LACTIC ACID BLOOD STAT 08/13/2024 5:0 8 PM FIRE SAFETY INSPECTOR COMPREHENSIVE METABOLIC PANEL STAT 08/13/2024 5:08 PM FIRE SAFETY INSPECTOR CBC W AUTO DIFFERENTIAL STAT 08/13/2024 5:08 PM FIRE SAFETY INSPECTOR B-TYPE NATRIURETIC PEPTIDE STAT 08/13/2024 5:08 PM FIRE SAFETY INSPECTOR BCID PANEL Routine 08/13/2024 5:08 PM FIRE SAFETY INSPECTOR CULTURE BLOOD Timed 08/13/2024 5:08 PM FIRE SAFETY INSPECTOR GLUCOSE - POINT OF CARE Routine 08/13/2024 4:48 PM FIRE SAFETY INSPECTOR BLOOD GASES ARTERIAL STAT 08/13/2024 4:16 PM FIRE SAFETY INSPECTOR XR CHEST 1VW PORTABLE STAT 08/13/2024 4:04 PM FIRE SAFETY INSPECTOR Acute hypoxic respiratory failure (HCC) from Last 3 Months Results * CARDIAC RHYTHM STRIP ORDER (08/23/2024 2:41 AM FIRE SAFETY INSPECTOR) Narrative 08/23/2024 2:41 AM FIRE SAFETY INSPECTOR Ordered by an unspecified provider. Scanned Document CARDIAC SERVICES ORD ERABLES * GLUCOSE - POINT OF CARE (08/18/2024 7:46 AM FIRE SAFETY INSPECTOR) Only the most recent of28 resultswithin the time period is included. Glucose WB/POC 81 70 - 99 mg/dL 08/18/2024 7:51 AM FIRE SAFETY INSPECTOR [facility] Specimen Type Cap Fingerstick 2024 7:51 AM FIRE SAFETY INSPECTOR [facility] Blood BLOOD SPECIMEN / Unknown 08/18/2024 7:46 AM FIRE SAFETY INSPECTOR 08/18/2024 7:51 AM FIRE SAFETY INSPECTOR Young Mcwilliams MD LAB - POINT OF CARE ORDERABLES [facility] [address] [place] [address] * (ABNORMAL) CBC W/O DIFFERENTIAL (08/17/2024 4:16 AM FIRE SAFETY INSPECTOR) Only the most recent of4 resultswithin the time period is included. WBC 16.3(H) 4.0 - 10.7 x10E9/L 08/17/2024 4:44 AM [facility] RBC Count 3.51(L) 3.90 - 5.20 x10E12/L 08/17/2024 4:44 AM [facility] Hemoglobin 10.3(L) 11.9 - 15.8 g/dL 08/17/2024 4:44 AM [facility] Hematocrit 32.6(L) 34.8 - 46.1 % 08/17/2024 4:44 AM [facility] MCV 92.9 80.0 - 98.0 fL 08/17/2024 4:44 AM [facility] MCH 29.3 26.7 - 33.6 pg 08/17/2024 4:44 AM [facility] MCHC 31.6(L) 31.7 - 36.3 g/dL 08/17/2024 4:44 AM [facility] RDW-CV 15.8(H) 11.3 - 14.8 % 08/17/2024 4:44 AM [facility] Platelet Count 478(H) 150 - 420 x10E9/L 08/17/2024 4:44 AM [facility] MPV 10.4 7.8 - 11.4 fL 08/17/2024 4:44 AM [facility] NRBC 0.8(H) <=0.0 /100 WBC 08/17/2024 4:44 AM [facility] Blood BLOOD SPECIMEN / Unknown Venipuncture / Unknown 08/17/2024 4:16 AM FIRE SAFETY INSPECTOR 08/17/2024 4:30 AM FIRE SAFETY INSPECTOR Alexus Ramirez MD LAB - HEMATOLOGY ORD ERABLES [facility] [id number] [place] [id number] * (ABNORMAL) BASIC METABOLIC PANEL (CALCIUM TOTAL) (08/17/2024 4:16 AM FIRE SAFETY INSPECTOR) Only the most recent of4 resultswithin the time period is included. Glucose 139(H) 70 - 99 mg/dL 08/17/2024 4:53 AM FIRE SAFETY INSPECTOR [facility] Sodium 140 136 - 145 mmol/L 08/17/2024 4:53 AM [facility] Potassium 3.5 3.5 - 5.1 mmol/L 08/17/2024 4:53 AM [facility] Chloride 108(H) 98 - 107 mmol/L 08/17/2024 4:53 AM [facility] CO2 24 22 - 29 mmol/L 08/17/2024 4:53 AM [facility] Calcium 8.9 8.4 - 10.4 mg/dL 08/17/2024 4:53 AM [facility] Anion Gap 8 6 - 16 mmol/L 08/17/2024 4:53 AM [facility] BUN 15 5.3 - 18.7 mg/dL 08/17/2024 4:53 AM [facility] Creatinine 0.65 0.57 - 1.11 mg/dL 08/17/2024 4:53 AM [facility] eGFR by CKD-EPI >90 >=90 mL/min/1.7 3 m2 08/17/2024 4:53 AM [facility] Blood BLOOD SPECIMEN / Unknown Venipuncture / Unknown 08/17/2024 4:16 AM FIRE SAFETY INSPECTOR 08/17/2024 4:30 AM [facility] Alexus Ramirez MD LAB - CHEMISTRY MICHAEL MONTGOMERY [facility] Organization Address City/State/ZIP Co de Phone Number [facility] [address] [place] [address] * (ABNORMAL) VANCOMYCIN LEVEL TROUGH (08/16/2024 6:35 PM FIRE SAFETY INSPECTOR) Vancomycin Trough 6.1(L) 10.0 - 20.0 ug/mL 08/16/2024 7:22 PM FIRE SAFETY INSPECTOR [facility] Blood BLOOD SPECIMEN / Unknown Venipuncture / Unknown 08/16/2024 6:35 PM FIRE SAFETY INSPECTOR 08/16/2024 7:02 PM FIRE SAFETY INSPECTOR Anatoliy Wyman MD LAB - CHEMISTRY MICHAEL MONTGOMERY [facility] [address] [place] [address] * CULTURE BLOOD (08/15/2024 8:54 AM FIRE SAFETY INSPECTOR) Only the most recent of4 resultswithin the time period is included. Culture No growth day 5 LORENZO 08/20/2024 1:31 [address] FIRE S[address]ETY INS[address]OR [facility] Blood PERIPHERAL BLOOD / Unknown Venipuncture / Unknown 08/15/2024 8:54 AM FIRE SAFETY INSPECTOR 08/15/2024 9:13 AM FIRE SAFETY INSPECTOR Amadeo Mliner MD LAB - MICROBIOLOGY O RDERAJANETTE Performing Organization Address City/[facility]/ZIP Co de Phone Number [facility] [address] [place], [place] [address] [phone] * (ABNORMAL) HEMOGLOBIN A1C (08/14/2024 3:27 AM FIRE SAFETY INSPECTOR) Hemoglobin A1c 10.1(H) <5.7 % 08/14/2024 3:48 AM FIRE SAFETY INSPECTOR [facility] Estimated Average Glucose 243 mg/dL 08/14/2024 3:48 AM FIRE SAFETY INSPECTOR [facility] Blood BLOOD SPECIMEN / Unknown Venipuncture / Unknown 08/14/2024 3:27 AM FIRE SAFETY INSPECTOR 08/14/2024 3:37 AM FIRE SAFETY INSPECTOR Narrative [facility] - 08/14/2024 3:48 AM FIRE SAFETY INSPECTOR HbA1c Interpretation: Normal: < 5.7% Pre-diabetes: 5.7-6.4% [...] MICHAEL MONTGOMERY Performing Organization Address [facility] Co de Phone Number [facility] [address] [place] [phone] * STREP PNEUMONIAE ANTIGEN URINE (08/13/2024 5:17 PM FIRE SAFETY INSPECTOR) Streptococcus pneumoniae Antigen Urine Negative Negative 08/14/2024 8:17 AM FIRE SAFETY INSPECTOR [facility] Urine URINE / Unknown Collection / Unknown 08/13/2024 5:17 PM FIRE SAFETY INSPECTOR 08/13/2024 5:22 PM FIRE SAFETY INSPECTOR Narrative [facility] - 08/14/2024 8:17 AM FIRE SAFETY INSPECTOR Patients who have received the Streptococcus pneumoniae [...] negatives. Alexus Ramirez MD LAB - MICROBIOLOGY O RDERABLES Performing Organization Address City/[facility]/ZIP Co de Phone Number [facility] [address] [place] [address] [phone] * LEGIONELLA ANTIGEN URINE (08/13/2024 5:17 PM FIRE SAFETY INSPECTOR) Legionella Antigen Urine Negative Negative 08/14/2024 8:21 AM FIRE SAFETY INS[address]OR [facility] Urine URINE / Unknown Collection / Unknown 08/13/2024 5:17 PM FIRE SAFETY INSPECTOR 08/13/2024 5:22 PM FIRE SAFETY INSPECTOR Narrative [facility] - 08/14/2024 8:21 AM FIRE SAFETY INSPECTOR This assay detects Legionella pneumophila serogroup one (1) antigen. A negative test result does not rule out the possibility of Legionella infection due to other serogroups or species of Legionella. A positive result may indicate a recent or remote infection with serogroup 1. Alexus Ramirez MD LAB - MICROBIOLOGY O RDERABLES [facility] [address] [place] [address], [facility] [phone] * (ABNORMAL) RESPIRATORY PANEL WITH SARS-COV-2 BY PCR (STL) (08/13/2024 5:09 PM FIRE SAFETY INSPECTOR) Pathologist [facility] Adenovirus PCR Not detected Not detected 08/13/2024 11:30 [address]ETY INS[address]OR [facility] Coronavirus 229E PCR Not detected Not detected 08/13/2024 11:30 PM FIRE SAFETY INSPECTOR [facility] Coronavirus HKU1 PCR Not detected Not detected 08/13/2024 11:30 PM FIRE SAFETY INSPECTOR [facility] Coronavirus NL63 PCR Not detected Not detected 08/13/2024 11:30 PM FIRE SAFETY INSPECTOR [facility] Coronavirus OC43 PCR Not detected Not detected 08/13/2024 11:30 PM FIRE SAFETY INSPECTOR [facility] COVID-19 PCR Not detected Not detected 08/13/2024 11:30 PM FIRE SAFETY INSPECTOR [facility] Human Metapneumovirus PCR Not detected Not detected 08/13/2024 11:30 PM FIRE SAFETY INSPECTOR [facility] Human Rhinovirus/Enterov irus PCR Not detected Not detected 08/13/2024 11:30 PM FIRE SAFETY INSPECTOR [facility] Influenza A PCR Not detected Not detected 08/13/2024 11:30 PM FIRE SAFETY INSPECTOR [facility] Influenza B PCR Not detected Not detected 08/13/2024 11:30 PM FIRE SAFETY INSPECTOR [facility] Parainfluenza Virus 1 PCR Not detected Not detected 08/13/2024 11:30 PM FIRE SAFETY INSPECTOR [facility] Parainfluenza Virus 2 PCR Not detected Not detected 08/13/2024 11:30 PM [address] SAFETY INS[address]OR [facility] Parainfluenza Virus 3 PCR Not detected Not detected 08/13/2024 11:30 PM FIRE SAFETY INSPECTOR [facility] Parainfluenza Virus 4 PCR Not detected Not detected 08/13/2024 11:30 PM FIRE SAFETY INSPECTOR [facility] Respiratory Syncytial Virus PCR Detected(A) Not detected 08/13/2024 11:30 PM FIRE SAFETY INSPECTOR [facility] Bordetella parapertussis PCR Not detected Not detected 08/13/2024 11:30 PM FIRE SAFETY INSPECTOR [facility] Bordetella pertussis PCR Not detected Not detected 08/13/2024 11:30 PM FIRE SAFETY INSPECTOR [facility] Chlamydia pneumoniae PCR Not detected Not detected 08/13/2024 11:30 PM FIRE SAFETY INSPECTOR [facility] Mycoplasma pneumoniae PCR Not detected Not detected 08/13/2024 11:30 PM FIRE SAFETY INSPECTOR [facility] Microbiology SPECIMEN FROM NASOPHARYNGEAL STRUCTURE / Unknown Collection / Unknown 08/13/2024 5:09 PM FIRE SAFETY INSPECTOR 08/13/2024 5:20 PM FIRE SAFETY INSPECTOR Narrative [facility] - 08/13/2024 11:30 PM FIRE SAFETY INSPECTOR Contact and Droplet Precautions Required. This nucleic amplification assay has received FDA authorization via the [place] [employer]. Alexus Ramirez MD LAB - MICROBIOLOGY O RDMERISSA [facility] [address] [place] [address], [facility] [phone] * CULTURE MRSA (08/13/2024 5:09 PM FIRE SAFETY INSPECTOR) Culture Negative for methicillin-resist ant Staphylococcus aureus (MRSA) LORENZO 08/15/2024 8:16 AM FIRE SAFETY INSPECTOR [facility] Microbiology SPECIMEN FROM NASAL FOSSAE / Unknown Collection / Unknown 08/13/2024 5:09 PM FIRE SAFETY INSPECTOR 08/13/2024 5:21 PM FIRE SAFETY INSPECTOR Alexus Ramirez MD LAB - MICROBIOLOGY O RDERAJANETTE Performing Organization Address City/[facility]/ZIP Co de Phone Number [facility] [address] [place] [address], [facility] [phone] * (ABNORMAL) BCID PANEL (08/13/2024 5:08 PM FIRE SAFETY INSPECTOR) Staphylococcus epidermidis Detected (A) Not detected 08/15/2024 2:03 AM FIRE SAFETY INSPECTOR [facility] MECA/C (Methicillin-Resi stance Gene) Detected (A) Not detected 08/15/2024 2:03 AM FIRE SAFETY INSPECTOR [facility] Comment:Results indicate met hicillin-resistant Staphylococcus epidermidis. Methicillin-resistance detected. Blood PERIPHERAL BLOOD / Unknown Venipuncture / Unknown 08/13/2024 5:08 PM FIRE SAFETY INSPECTOR 08/13/2024 5:19 PM FIRE SAFETY INSPECTOR Narrative [facility] - 08/15/2024 2:03 AM FIRE SAFETY INSPECTOR Blood Culture ID Panel performed by [employer] multiplex PCR. The Test panel includes: Gram [...] and MREJ (methicillin-resistance - MRSA), NDM ([place] bwiiedv-tyag-ckpedhxxj), OXA-48-like (oxacillinase beta-lactamase),Ashly/B (vancomycin-resistance), VIM ([place] Intergrom-Encoded [place] beta-lactamase). Alexus Ramirez MD LAB - MICROBIOLOGY O RDERABLES [facility] [address] [place] [address], [facility] [phone] * PTT (08/13/2024 5:08 PM FIRE SAFETY INSPECTOR) [facility] PTT 28.4 23.0 - 38.4 sec 08/13/2024 5:43 PM FIRE SAFETY INSPECTOR [facility] Blood BLOOD SPECIMEN / Unknown Venipuncture / Unknown 08/13/2024 5:08 PM FIRE SAFETY INSPECTOR 08/13/2024 5:21 PM FIRE SAFETY INSPECTOR Narrative [facility] - 08/13/2024 5:43 PM FIRE SAFETY INSPECTOR Heparin Therapeutic Range for PTT: 69.0 - 110.0 seconds. Alexus Ramirez MD LAB - COAGULATION OR DERABLES Performing Organization Address [facility] Co de Phone Number [facility] [id number] [place] [phone] * PT-INR (08/13/2024 5:08 PM FIRE SAFETY INSPECTOR) Pathologist [facility] PT 14.1 12.1 - 14.8 sec 08/13/2024 5:43 PM FIRE SAFETY INSPECTOR [facility] INR 1.1 0.9 - 1.1 08/13/2024 5:43 PM FIRE SAFETY INSPECTOR [facility] Blood BLOOD SPECIMEN / Unknown Venipuncture / Unknown 08/13/2024 5:08 PM FIRE SAFETY INSPECTOR 08/13/2024 5:21 PM FIRE SAFETY INSPECTOR Narrative [facility] - 08/13/2024 5:43 PM FIRE SAFETY INSPECTOR Conventional Warfarin Anticoagulant Therapy: INR Reference Range: 2.0-3.0 Intensive Warfarin Anticoagulant Therapy: INR Reference Range: 2.5-3.5 Alexus Ramirez MD LAB - COAGULATION OR DERABLES Performing Organization Address City/[facility] Co de Phone Number [facility] [id number] [place] [phone] * (ABNORMAL) DIFFERENTIAL MANUAL (08/13/2024 5:08 PM FIRE SAFETY INSPECTOR) Pathologist [facility] Neutrophil % 90(H) 41 - 74 % 08/13/2024 6:34 PM FIRE SAFETY INSPECTOR [facility] Lymphocyte % 4(L) 17 - 47 % 08/13/2024 6:34 PM FIRE SAFETY INSPECTOR [facility] Monocyte % 1(L) 3 - 11 % 08/13/2024 6:34 PM FIRE SAFETY INSPECTOR [facility] Basophil % 1 0 - 2 % 08/13/2024 6:34 PM FIRE SAFETY INSPECTOR [facility] Myelocyte % 3(H) 0% % 08/13/2024 6:34 PM FIRE SAFETY INSPECTOR [facility] Promyelocyte % 1(H) 0% % 08/13/2024 6:34 PM FIRE SAFETY INSPECTOR [facility] Neutrophil Absolute 17.91(H) 1.60 - 7.50 x10E9/L 08/13/2024 6:34 PM FIRE SAFETY INSPECTOR [facility] Lymphocyte Absolute 0.80(L) 1.00 - 4.40 x10E9/L 08/13/2024 6:34 PM FIRE SAFETY INSPECTOR [facility] Monocyte Absolute 0.20 0.15 - 1.00 x10E9/L 08/13/2024 6:34 PM FIRE SAFETY INSPECTOR [facility] Basophil Absolute 0.20(H) 0.00 - 0.13 x10E9/L 08/13/2024 6:34 PM FIRE SAFETY INSPECTOR [facility] RBC Morphology REVIEWED 08/13/2024 6:34 PM FIRE SAFETY INSPECTOR [facility] Blood BLOOD SPECIMEN / Unknown Venipuncture / Unknown 08/13/2024 5:08 PM FIRE SAFETY INSPECTOR 08/13/2024 5:21 PM FIRE SAFETY INSPECTOR Alexus Ramirez MD LAB - HEMATOLOGY ORD ERABLES [facility] [address] [place] [address] * (ABNORMAL) CBC W AUTO DIFFERENTIAL (08/13/2024 5:08 PM FIRE SAFETY INSPECTOR) WBC 19.9(H) 4.0 - 10.7 x10E9/L 08/13/2024 6:34 PM FIRE SAFETY INSPECTOR [facility] RBC Count 3.41(L) 3.90 - 5.20 x10E12/L 08/13/2024 6:34 PM FIRE SAFETY INSPECTOR [facility] Hemoglobin 10.1(L) 11.9 - 15.8 g/dL 08/13/2024 6:34 PM FIRE SAFETY INSPECTOR [facility] Hematocrit 31.0(L) 34.8 - 46.1 % 08/13/2024 6:34 PM FIRE SAFETY INSPECTOR [facility] MCV 90.9 80.0 - 98.0 fL 08/13/2024 6:34 PM FIRE SAFETY INSPECTOR [facility] MCH 29.6 26.7 - 33.6 pg 08/13/2024 6:34 PM [facility] MCHC 32.6 31.7 - 36.3 g/dL 08/13/2024 6:34 PM [facility] LABORATORY RDW-CV 15.2(H) 11.3 - 14.8 % 08/13/2024 6:34 PM [facility] Platelet Count 340 150 - 420 x10E9/L 08/13/2024 6:34 PM [facility] MPV 11.4 7.8 - 11.4 fL 08/13/2024 6:34 PM [facility] Blood BLOOD SPECIMEN / Unknown Venipuncture / Unknown 08/13/2024 5:08 PM FIRE SAFETY INSPECTOR 08/13/2024 5:21 PM FIRE SAFETY INSPECTOR Alexus Ramirez MD LAB - HEMATOLOGY ORD ERABLES Performing Organization Address [facility] Co de Phone Number [facility] [phone] [place] [phone] * B-TYPE NATRIURETIC PEPTIDE (08/13/2024 5:08 PM FIRE SAFETY INSPECTOR) Pathologist [facility] BNP 43 <=100 pg/mL 08/13/2024 5:45 PM [facility] Blood BLOOD SPECIMEN / Unknown Venipuncture / Unknown 08/13/2024 5:08 PM FIRE SAFETY INSPECTOR 08/13/2024 5:21 PM FIRE SAFETY INSPECTOR Alexus Ramirez MD LAB - CHEMISTRY ORDE RABLES Performing Organization Address City/[facility] Co de Phone Number [facility] [address] [place] [address] * (ABNORMAL) COMPREHENSIVE METABOLIC PANEL (08/13/2024 5:08 PM FIRE SAFETY INSPECTOR) Glucose 396(H) 70 - 99 mg/dL 08/13/2024 5:39 PM FIRE SAFETY INSPECTOR [facility] Sodium 135(L) 136 - 145 mmol/L 08/13/2024 5:39 PM [facility] Potassium 5.0 3.5 - 5.1 mmol/L 08/13/2024 5:39 PM FIRE SAFETY INSPECTOR [facility] Chloride 99 98 - 107 mmol/L 08/13/2024 5:39 PM [facility] CO2 26 22 - 29 mmol/L 08/13/2024 5:39 PM [facility] Calcium 9.2 8.4 - 10.4 mg/dL 08/13/2024 5:39 PM [facility] Anion Gap 10 6 - 16 mmol/L 08/13/2024 5:39 PM [facility] BUN 28(H) 5.3 - 18.7 mg/dL 08/13/2024 5:39 PM [facility] Creatinine 0.89 0.57 - 1.11 mg/dL 08/13/2024 5:39 PM [facility] Alkaline Phosphatase 111 40 - 150 U/L 08/13/2024 5:39 PM [facility] ALT 40 0 - 55 U/L 08/13/2024 5:39 PM [facility] AST 15 5 - 34 U/L 08/13/2024 5:39 PM [facility] Protein Total 6.8 6.4 - 8.3 gm/dL 08/13/2024 5:39 PM [facility] Albumin 2.6(L) 3.4 - 5.0 gm/dL 08/13/2024 5:39 PM [facility] Bilirubin Total 0.2 0.2 - 1.2 mg/dL 08/13/2024 5:39 PM [facility] eGFR by CKD-EPI 80(L) >=90 mL/min/1.7 3 m2 08/13/2024 5:39 PM [facility] Blood BLOOD SPECIMEN / Unknown Venipuncture / Unknown 08/13/2024 5:08 PM FIRE SAFETY INSPECTOR 08/13/2024 5:21 PM [facility] Alexus Ramirez MD LAB - CHEMISTRY MICHAEL MONTGOMERY [facility] [address] [place] [address] * PHOSPHORUS BLOOD (08/13/2024 5:08 PM [facility]) [facility] Signature Phosphorus 3.3 2.5 - 4.5 mg/dL 08/13/2024 5:39 PM FIRE SAFETY INSPECTOR [facility] Blood BLOOD SPECIMEN / Unknown Venipuncture / Unknown 08/13/2024 5:08 PM FIRE SAFETY INSPECTOR 08/13/2024 5:21 PM FIRE SAFETY INSPECTOR Alexus Ramirez MD LAB - CHEMISTRY MICHAEL MONTGOMERY Performing Organization Address [facility] Co de Phone Number [facility] [phone] [place] [phone] * MAGNESIUM BLOOD (08/13/2024 5:08 PM FIRE SAFETY INSPECTOR) Magnesium 2.0 1.6 - 2.6 mg/dL 08/13/2024 5:39 PM FIRE SAFETY INSPECTOR [facility] Blood BLOOD SPECIMEN / Unknown Venipuncture / Unknown 08/13/2024 5:08 PM FIRE SAFETY INSPECTOR 08/13/2024 5:21 PM FIRE SAFETY INSPECTOR Alexus Ramirez MD LAB - CHEMISTRY MICHAEL MONTGOMERY Performing Organization Address [facility] Co de Phone Number [facility] [phone] [place] [phone] * LIPASE BLOOD (08/13/2024 5:08 PM FIRE SAFETY INSPECTOR) Lipase 25 <60 U/L 08/13/2024 5:39 PM FIRE SAFETY INSPECTOR [facility] Blood BLOOD SPECIMEN / Unknown Venipuncture / Unknown 08/13/2024 5:08 PM FIRE SAFETY INSPECTOR 08/13/2024 5:21 PM FIRE SAFETY INSPECTOR Alexus Ramirez MD LAB - CHEMISTRY MICHAEL MONTGOMERY Performing Organization Address [facility] de Phone Number [facility] [phone] [place] [phone] * LACTIC ACID BLOOD (08/13/2024 5:08 PM FIRE SAFETY INSPECTOR) Lactic Acid 1.5 <=2.0 mmol/L 08/13/2024 5:39 PM FIRE SAFETY INSPECTOR [facility] Blood BLOOD SPECIMEN / Unknown Venipuncture / Unknown 08/13/2024 5:08 PM FIRE SAFETY INSPECTOR 08/13/2024 5:21 PM FIRE SAFETY INSPECTOR Alexus Ramirez MD LAB - CHEMISTRY MICHAEL MONTGOMERY Performing Organization Address [facility] Co de Phone Number [facility] [address] [place] [address] * (ABNORMAL) BLOOD GASES ARTERIAL (08/13/2024 4:16 PM FIRE SAFETY INSPECTOR) pH Arterial 7.47(H) 7.35 - 7.45 pH 08/13/2024 4:34 PM FIRE SAFETY INSPECTOR [facility] pO2 Arterial 99 80 - 100 mmHg 08/13/2024 4:34 PM FIRE SAFETY INSPECTOR [facility] pCO2 Arterial 39 35 - 45 mmHg 08/13/2024 4:34 PM FIRE SAFETY INSPECTOR [facility] HCO3 Arterial 28.4(H) 22.0 - 26.0 mmol/L 08/13/2024 4:34 PM FIRE SAFETY INSPECTOR [facility] BE Arterial 4.5(H) -2.0 - 2.0 mmol/L 08/13/2024 4:34 PM FIRE SAFETY INSPECTOR [facility] O2 Saturation Arterial 99 90 - 100 % 08/13/2024 4:34 PM FIRE SAFETY INSPECTOR [facility] Sample Site Right RA 08/13/2024 4:34 PM FIRE SAFETY INSPECTOR [facility] Mode APVcmv 08/13/2024 4:34 PM FIRE SAFETY INSPECTOR [facility] O2 Device VENT 08/13/2024 4:34 PM FIRE SAFETY INSPECTOR [facility] FI O2 50.0 % 08/13/2024 4:34 PM FIRE SAFETY INSPECTOR [facility] Mechanical Tidal Volume (mL) 380 08/13/2024 4:34 PM FIRE SAFETY INSPECTOR [facility] Mechanical Respiratory Rate (bpm) 22 08/13/2024 4:34 PM FIRE SAFETY INSPECTOR [facility] PEEP (cmH2O) 10 08/13/2024 4:34 PM FIRE SAFETY INSPECTOR [facility] Blood, arterial ARTERIAL BLOOD SPECIMEN / Unknown 08/13/2024 4:16 PM FIRE SAFETY INSPECTOR 08/13/2024 4:16 PM FIRE SAFETY INSPECTOR Alexus Ramirez MD LAB - BLOOD GASES OR DERABLES Performing Organization Address [facility]/ZIP Co de Phone Number [facility] [address] [place] [address], [place] [phone] * XR CHEST 1VW PORTABLE (08/13/2024 4:04 PM FIRE SAFETY INSPECTOR) Anatomical Region Laterality Modality Chest Computed Radiogr aphy 08/13/2024 4:10 PM FIRE SAFETY INSPECTOR Impressions 08/13/2024 4:12 PM FIRE SAFETY INSPECTOR IMPRESSION: Multiple tubing placements as noted above. Subtle linear streak is present in the left lung. Also the diaphragm.? Atelectasis or scarring. Unfortunately, we have no previous chest imaging studies available at this time. > Interpreting Provider: Ko Olguin MD on 08/13/2024 4:12 PM Narrative 08/13/2024 4:12 PM FIRE SAFETY INSPECTOR PROCEDURE: XR CHEST 1VW PORTABLE DATE/TIME OF [...] to the level of the right atrium. digital product specialist wires obscure the chest bilaterally. Heart size [...] extendingto the level of the right atrium. digital product specialist wires obscure the chest bilaterally. Heart size [...] 3:54 PM 08/18/2024 6:24 PM Care Teams Assisted Living Executive Director Relationship Specialty Start Date End Date Kishor Saleh MD [address] [place] [address] PCP - General Internal Medicine 07/31/23
[2024-09-22 20:28] VITALS: BP 188/96; PULSE 114; RESP 18; TEMP 36.4; O2SAT 97
--- NOTE | 2024-09-22 20:33 | ECG_ITS ---
Test Date: 2024-09-22 21:17:33 Measurements Intervals [place] Rate: P: 0 AK: 0 QRS: 0 QRSD: 0 T: 0 QT: 0 QTc: 0 Interpretive Statements SINUS TACHYCARDIA ATRIAL PREMATURE COMPLEX DELAYED PRECORDIAL R/S TRANSITION LEFT VENTRICULAR HYPERTROPHY WITH ST-T CHANGE BASELINE ARTIFACT- I, II, III, V4-V6 ABNORMAL ECG Compared to ECG 08/06/2024 05:16:52 NO SIGNIFICANT CHANGE Electronically Signed On 09-23-2024 09:44:43 COLOR CHECKER by Cordell So D.O.
[2024-09-22 22:47] VITALS: PULSE 102; O2SAT 97
[2024-09-22 22:52] VITALS: BP 169/86; PULSE 104; RESP 17; O2SAT 97
[2024-09-22 22:54] LABS: Basophils Percent Auto 0.2 % (0.2-1.2); Hematocrit 35.9 % (37.0-47.0); Hemoglobin 11.3 g/dL (12.0-15.0); Immature Granulocyte Absolute 0.24 K/mm3 (0.00-0.031); Immature Granulocyte Percent A 1.4 % (0-0.5); Lymphocytes Absolute Auto 0.65 K/mm3 (0.9-3.2); Lymphocytes Percent Auto 3.9 % (18.3-44.2); Mean Corpuscular HGB Conc 31.5 g/dl (32-36); Mean Corpuscular Hemoglobin 29.1 pg (26-34); Mean Corpuscular Volume 92.5 fl (80-100); Mean Platelet Volume 9.5 fl (7.4-10.4); Monocytes Absolute Auto 0.7 K/mm3 (0.1-0.6); Monocytes Percent Auto 4.3 % (2.6-8.5); Neutrophils Absolute Auto 15.2 K/mm3 (1.3-6.7); Neutrophils Percent Auto 90.2 % (45.5-73.1); Platelet Count Result 394 k/mm3 (150-375); Red Blood Count 3.88 M/mm3 (4.2-5.4); Red Cell Distribution Width 15.9 % (11.5-14.5); White Blood Count 16.8 K/mm3 (4.5-10.0)
[2024-09-22 23:08] LABS: Alanine Aminotransferase 72 U/L (6-35); Albumin Level 4.4 g/dL (3.5-5.1); Alkaline Phosphatase 66 U/L (38-126); Anion Gap 11 mmol/L (4-12); Aspartate Amino Transferase 29 U/L (14-36); Bilirubin,Total 0.6 mg/dL (0.2-1.3); Blood Urea Nitrogen 20 mg/dL (7-17); Calcium 9.4 mg/dL (8.4-10.2); Carbon Dioxide 28 mmol/L (22-30); Chloride 99 mmol/L (98-107); Estimated Glomerular Filt Rate > 60; Glucose 212 mg/dL (65-110); Potassium 4.2 mmol/L (3.4-5.0); Sodium 138 mmol/L (137-145)
--- NOTE | 2024-09-22 23:20 | PC.NURSE ---
Report to Mohini LEWIS
--- NOTE | 2024-09-22 23:21 | ED_ITS ---
HPI - SOB/Dyspnea General Chief Complaint: Shortness of Breath/Dyspnea <Fabienne Aldana APRN - Last Filed: 09/23/24 00:54> Stated Complaint: shortness of breath <Fabienne Aldana APRN - Last Filed: 09/23/24 00:54> Time Seen by Provider: 09/22/24 22:21 <Fabienne Aldana APRN - Last Filed: 09/23/24 00:54> History of Present Illness HPI Narrative: Patient is a 49-year-old female presents to the ER with increased shortness of breath and intermittent wheezing. She reports she had pneumonia last month and was intubated. Patient reports she was healing but then started having increased shortness of breath again 1 week ago. She reports she notices increased shortness of breath with any type of exertion. Patient endorses a history of diabetes, hypertension, autoimmune disorder for which she receives infusions, chronic pain. She denies abdominal pain, urinary symptoms, acute back pain. <Fabienne Aldana APRN - Last Filed: 09/23/24 00:54> Related Data Home Medications: Home Medications ?Medication ?Instructions ?Recorded ?Confirmed ?Last Taken ?Type atorvastatin 20 mg tablet 20 mg PO HS 10/15/20 07/31/24 05/24/23 History lisinopril 10 mg tablet 20 mg PO DAILY 10/15/20 07/31/24 05/24/23 History loratadine 10 mg tablet (Claritin) 10 mg PO DAILY 10/15/20 07/31/24 05/24/23 History montelukast 10 mg tablet 10 mg PO HS 10/15/20 07/31/24 Unknown History insulin glargine-yfgn 100 unit/mL 25 unit subcut BID 05/25/23 07/31/24 05/24/23 History (3 mL) subcutaneous pen (Semglee (insulin glargine-yfgn) Pen) insulin lispro-aabc 100 unit/mL 1 sliding scale dose subcut AC 05/25/23 08/09/24 05/24/23 History subcutaneous pen ([place] UnderwoodPen U-100 Insulin) tirzepatide 5 mg/0.5 mL 5 mg subcut WEEKLY 05/25/23 07/31/24 07/28/24 History subcutaneous pen injector (Stephan) venlafaxine 150 mg 150 mg PO DAILY 05/25/23 07/31/24 05/24/23 History capsule,extended release 24 hr albuterol sulfate 2.5 mg/3 mL 2.5 mg inhalation DAILY PRN 08/10/23 07/31/24 Unknown History (0.083 %) solution for nebulization Shortness Of Breath cetirizine 10 mg tablet (All Day 10 mg PO DAILY 08/10/23 07/31/24 07/30/24 History Allergy (cetirizine)) ergocalciferol (vitamin D2) 50,000 unit PO .COMPLEX 08/10/23 07/31/24 07/27/24 History fluticasone propionate 50 1 spray intranasal DAILY PRN 08/10/23 07/31/24 Unknown History mcg/actuation nasal allergy symptoms spray,suspension prednisone 20 mg tablet 40 mg PO DAILY@0800 08/10/23 07/31/24 Unknown History cyclobenzaprine 10 mg tablet 10 mg PO DAILY 07/31/24 07/31/24 Unknown History diclofenac sodium 75 mg 75 mg PO BID 07/31/24 07/31/24 Unknown History tablet,delayed release folic acid 1 mg tablet 1 mg PO DAILY 07/31/24 07/31/24 Unknown History gabapentin 300 mg capsule 300 mg PO TID 07/31/24 07/31/24 Unknown History hydroxychloroquine 200 mg tablet 200 mg PO BID 07/31/24 07/31/24 Unknown History insulin glargine 100 unit/mL (3 45 unit subcut BID 07/31/24 07/31/24 07/30/24 History mL) subcutaneous pen (Lantus Solostar U-100 Insulin) lisinopril 20 mg tablet 20 mg PO DAILY 07/31/24 07/31/24 Unknown History methotrexate sodium 2.5 mg tablet 12.5 mg PO WEEKLY 07/31/24 07/31/24 07/28/24 History pantoprazole 40 mg tablet,delayed 40 mg PO DAILY 07/31/24 07/31/24 Unknown History release <Fabienne Aldana, ROLLED MATERIALS WORKER - Last Filed: 09/23/24 00:54> Allergies/Adverse Reactions: Allergies Allergy/AdvReac Type Severity Reaction Status Date / Time amoxicillin AdvReac Unknown Nausea and Verified 07/31/24 08:23 Vomiting glipizide AdvReac Unknown NAUSEA AND Verified 02/06/24 14:29 VOMITING hydrocodone AdvReac Unknown Nausea and Verified 02/06/24 14:29 Vomiting metformin AdvReac Unknown Nausea and Verified 02/06/24 14:29 Vomiting <Fabienne Aldana APRN - Last Filed: 09/23/24 00:54> Review of Systems 2 Review of Systems: All systems reviewed & are unremarkable except as noted in HPI and below <Fabienne Aldana APRN - Last Filed: 09/23/24 00:54> REPLACED BY [facility] Past Medical History Medical History: Medical History Vasculitis Depression JEREMY on CPAP Hypertension Hypercholesterolemia Diabetes <Fabienne Aldana APRN - Last Filed: 09/23/24 00:54> Surgical History Surgical History: Surgical History H/O arthroscopy H/O myomectomy <Fabienne Aldana APRN - Last Filed: 09/23/24 00:54> Family History Family History: Family History Mother Diabetes mellitus Myocardial infarction Uterine cancer Father Cancer of blood vessel Sibling Diabetes mellitus <Fabienne Aldana APRN - Last Filed: 09/23/24 00:54> Social History Social History: Social History Smoking status: Never smoker Alcohol intake: never Drinks per week: 1 Substance use: never Substance use type: does not use Do You Feel Safe in your Home?: Yes Lack of Transportation: No Lack of Food: Never True Current Housing: I Have Housing Concerned About Future Housing: No Difficulty Paying Gas/Electric Bills: No Difficulty Paying for Meds: No Currently Unemployed: No Education: High School Diploma/GED Difficulty w/ Childcare or Family Care: No Spiritual care concerns: No <Fabienne Aldana APRN - Last Filed: 09/23/24 00:54> Exam 2 Narrative: GENERAL: Ill-appearing, obese, non-toxic, in no acute distress. HEAD: Normocephalic, atraumatic. NECK: Supple. No adenopathy, no masses. RESPIRATORY: Airway patent, respirations mildly labored. Clear to auscultation bilaterally, no rales, rhonchi, wheezing at time of examination. CARDIOVASCULAR: Tachycardia without murmurs, rubs, or gallops. Peripheral pulses 2+ and equal bilaterally, bilateral lower extremity edema ABDOMINAL: Soft, nontender, nondistended, no hepatosplenomegaly. Normoactive BS. MUSCULOSKELETAL: Moves all extremities. Strength/ROM intact without gross deformities. SKIN: Warm, dry, pallor. No rashes. NEURO: A&O X3. Speech clear. Cranial nerves II-XII grossly intact, No ataxic movements. PSYCHIATRIC: Appropriate mood and affect. Normal interaction. <Fabienne Aldana, BRAD - Last Filed: 09/23/24 00:54> Course COLLECTION SPECIALIST/PA Physician Supervision For this patient encounter, I reviewed the COLLECTION SPECIALIST or PA documentation, treatment plan, and medical decision making and had [id number] time with this patient. I performed all aspects of the MDM as documented. <Evelyne Marcum MD - Last Filed: 09/23/24 00:54> Vital Signs Vital signs: Vital Signs Temperature 97.6 F 09/22/24 20:28 Pulse Rate 114 H 09/22/24 20:28 Respiratory Rate 18 09/22/24 20:28 Blood Pressure 188/96 H 09/22/24 20:28 Pulse Oximetry 97 09/22/24 20:28 Oxygen Delivery Room Air 09/22/24 20:28 Temperature 97.6 F 09/22/24 20:28 Pulse Rate 104 H 09/22/24 22:52 Respiratory Rate 17 09/22/24 22:52 Blood Pressure 169/86 H 09/22/24 22:52 Pulse Oximetry 97 09/22/24 22:52 Oxygen Delivery Room Air 09/22/24 22:47 <Fabienne Aldana APRN - Last Filed: 09/23/24 00:54> Vital Signs Temperature 97.6 F 09/22/24 20:28 Pulse Rate 114 H 09/22/24 20:28 Respiratory Rate 18 09/22/24 20:28 Blood Pressure 188/96 H 09/22/24 20:28 Pulse Oximetry 97 09/22/24 20:28 Oxygen Delivery Room Air 09/22/24 20:28 Temperature 97.6 F 09/22/24 20:28 Pulse Rate 104 H 09/22/24 22:52 Respiratory Rate 17 09/22/24 22:52 Blood Pressure 169/86 H 09/22/24 22:52 Pulse Oximetry 97 09/22/24 22:52 Oxygen Delivery Room Air 09/22/24 22:47 <Evelyne Marcum MD - Last Filed: 09/23/24 00:54> MDM - SOB/Dyspnea MDM Narrative Medical decision making narrative: Patient is a 49-year-old female presents to the ER with increased shortness of breath and intermittent wheezing. She reports she had pneumonia last month and was intubated. Patient reports she was healing but then started having increased shortness of breath again 1 week ago. She reports she notices increased shortness of breath with any type of exertion. Patient endorses a history of diabetes, hypertension, autoimmune disorder for which she receives infusions, chronic pain. She denies abdominal pain, urinary symptoms, acute back pain. Labs Ordered: CBC, CMP, lactic acid, COVID/flu/RSV, CRP, UA, blood culture, TSH, troponin, INR, D-dimer, PTT, magnesium Imaging Ordered: Chest x-ray, CTA chest PE scan Medications Ordered: 1 L normal saline, ceftriaxone, Zithromax Results: Pt's chest CT scan indicates 1. No pulmonary embolus. 2. Elevation of right hemidiaphragm with mild atelectasis at right lung base. Risks: HEART score: high risk HEART Pathway for [email or web address] All calculations should be rechecked by clinician prior to use RESULT SUMMARY: 4 points HEART Pathway Score High risk 12-65% 30-day MACE Admit to hospital or observation. Further testing indicated. INPUTS: History ?> 2 = Highly suspicious EKG ?> 0 = Normal Age ?> 1 = 45-64 Risk factors ?> 1 = 1-2 risk factors Initial troponin ?> 0 = <=Normal limit Diagnosis: sepsis, pneumonia Patient Education/Shared MDM: Results shared with patient. She verbalizes understanding and is in agreement plan for admission. Spoke with hospitalist who also was in agreement for admitting patient. Patient will be given IV rehydration here in the ER and started on IV antibiotics. She will be admitted to the hospital on telemetry due to her tachycardia. <Fabienne Aldana APRN - Last Filed: 09/23/24 00:54> Differential Diagnosis Differential diagnosis: Likely acute exacerbation of chronic obstructive airways disease, congestive heart failure, community acquired pneumonia, asthma with exacerbation and pulmonary embolism <Fabienne Aldana APRN - Last Filed: 09/23/24 00:54> Lab Data Attestation: I reviewed the patient's lab results. <Fabienne Aldana APRN - Last Filed: 09/23/24 00:54> Result diagrams: 09/22/24 22:46 09/22/24 22:46 <Fabienne Aldana APRN - Last Filed: 09/23/24 00:54> Labs: Lab Results 09/22/24 09/22/24 09/23/24 Range/Units 22:46 23:33 00:36 WBC 16.8 H (4.5-10.0) K/mm3 RBC 3.88 L (4.2-5.4) M/mm3 Hgb 11.3 L (12.0-15.0) g/dL Hct 35.9 L (37.0-47.0) % MCV 92.5 (80-100) fl MCH 29.1 (26-34) pg MCHC 31.5 L (32-36) g/dl RDW 15.9 H (11.5-14.5) % Plt Count 394 H (150-375) k/mm3 MPV 9.5 (7.4-10.4) fl Immature Gran % (Auto) 1.4 H (0-0.5) % Neut % (Auto) 90.2 H (45.5-73.1) % Lymph % (Auto) 3.9 L (18.3-44.2) % [place] % (Auto) 4.3 (2.6-8.5) % Eos % (Auto) 0.0 (0-4.4) % Baso % (Auto) 0.2 (0.2-1.2) % Lymph # (Auto) 0.65 L (0.9-3.2) K/mm3 [place] # (Auto) 0.7 H (0.1-0.6) K/mm3 Eos # (Auto) 0.0 (0-0.3) K/mm3 Baso # (Auto) 0.0 (0.0-0.1) K/mm3 Abs Immat Gran (auto) 0.24 H (0.00-0.031) K/mm3 Absolute Neuts (auto) 15.2 H (1.3-6.7) K/mm3 Absolute Nucleated RBC 0.000 (0.0-0.012) K/mm3 Nucleated RBC % 0.0 (0.0-0.2) % PT 12.6 (11.1-14.7) Seconds INR 0.9 APTT 22.7 (22.3-36.8) Seconds D-Dimer 0.59 H (<0.48) ug/mL Sodium 138 (137-145) mmol/L Potassium 4.2 (3.4-5.0) mmol/L Chloride 99 (98-107) mmol/L Carbon Dioxide 28 (22-30) mmol/L Anion Gap 11 (4-12) mmol/L BUN 20 H D (7-17) mg/dL Creatinine 0.48 L (0.7-1.0) mg/dL Estim Creat Clear Calc Not Reportable Estimated GFR > 60 (59 - ) Glucose 212 H (65-110) mg/dL Lactic Acid 2.7 H (0.7-2.0) mmol/L Calcium 9.4 (8.4-10.2) mg/dL Magnesium 2.0 (1.6-2.3) mg/dL Total Bilirubin 0.6 (0.2-1.3) mg/dL AST 29 (14-36) U/L ALT 72 H (6-35) U/L Alkaline Phosphatase 66 (38-126) U/L Troponin I < 0.012 (0.000-0.034) ng/mL C-Reactive Protein 0.5 (<1.0) mg/dL NT-Pro-B Natriuret Pep 204 H (19.9-100) pg/mL Total Protein 8.0 (6.3-8.2) g/dL Albumin 4.4 (3.5-5.1) g/dL TSH (Reflex) 0.245 L (0.465-4.68) uIU/mL Free T4 Pending Influenza A (RT-PCR) Pending Influenza B (RT-PCR) Pending RSV (RT-PCR) Pending SARS-CoV-2 RNA (RT-PCR) Pending <Fabienne Aldana, ROLLED MATERIALS WORKER - Last Filed: 09/23/24 00:54> Lab Results 09/22/24 09/22/24 09/23/24 Range/Units 22:46 23:33 00:36 WBC 16.8 H (4.5-10.0) K/mm3 RBC 3.88 L (4.2-5.4) M/mm3 Hgb 11.3 L (12.0-15.0) g/dL Hct 35.9 L (37.0-47.0) % MCV 92.5 (80-100) fl MCH 29.1 (26-34) pg MCHC 31.5 L (32-36) g/dl RDW 15.9 H (11.5-14.5) % Plt Count 394 H (150-375) k/mm3 MPV 9.5 (7.4-10.4) fl Immature Gran % (Auto) 1.4 H (0-0.5) % Neut % (Auto) 90.2 H (45.5-73.1) % Lymph % (Auto) 3.9 L (18.3-44.2) % [place] % (Auto) 4.3 (2.6-8.5) % Eos % (Auto) 0.0 (0-4.4) % Baso % (Auto) 0.2 (0.2-1.2) % Lymph # (Auto) 0.65 L (0.9-3.2) K/mm3 [place] # (Auto) 0.7 H (0.1-0.6) K/mm3 Eos # (Auto) 0.0 (0-0.3) K/mm3 Baso # (Auto) 0.0 (0.0-0.1) K/mm3 Abs Immat Gran (auto) 0.24 H (0.00-0.031) K/mm3 Absolute Neuts (auto) 15.2 H (1.3-6.7) K/mm3 Absolute Nucleated RBC 0.000 (0.0-0.012) K/mm3 Nucleated RBC % 0.0 (0.0-0.2) % PT 12.6 (11.1-14.7) Seconds INR 0.9 APTT 22.7 (22.3-36.8) Seconds D-Dimer 0.59 H (<0.48) ug/mL Sodium 138 (137-145) mmol/L Potassium 4.2 (3.4-5.0) mmol/L Chloride 99 (98-107) mmol/L Carbon Dioxide 28 (22-30) mmol/L Anion Gap 11 (4-12) mmol/L BUN 20 H D (7-17) mg/dL Creatinine 0.48 L (0.7-1.0) mg/dL Estim Creat Clear Calc Not Reportable Estimated GFR > 60 (59 - ) Glucose 212 H (65-110) mg/dL Lactic Acid 2.7 H (0.7-2.0) mmol/L Calcium 9.4 (8.4-10.2) mg/dL Magnesium 2.0 (1.6-2.3) mg/dL Total Bilirubin 0.6 (0.2-1.3) mg/dL AST 29 (14-36) U/L ALT 72 H (6-35) U/L Alkaline Phosphatase 66 (38-126) U/L Troponin I < 0.012 (0.000-0.034) ng/mL C-Reactive Protein 0.5 (<1.0) mg/dL NT-Pro-B Natriuret Pep 204 H (19.9-100) pg/mL Total Protein 8.0 (6.3-8.2) g/dL Albumin 4.4 (3.5-5.1) g/dL TSH (Reflex) 0.245 L (0.465-4.68) uIU/mL Free T4 Pending Influenza A (RT-PCR) Pending Influenza B (RT-PCR) Pending RSV (RT-PCR) Pending SARS-CoV-2 RNA (RT-PCR) Pending <Evelyne Marcum MD - Last Filed: 09/23/24 00:54> Imaging Data Attestation: I personally reviewed and interpreted this imaging study as follows: < Fabienne Aldana APRN - Last Filed: 09/23/24 00:54> Radiologist's impression: Impressions Chest X-Ray 09/22/24 20:56 IMPRESSION: 1. Elevation of right hemidiaphragm with mild atelectasis at right lung base. Chest CTA 09/22/24 23:51 IMPRESSION: 1. No pulmonary embolus. 2. Elevation of right hemidiaphragm with mild atelectasis at right lung base. <Fabienne Aldana ROLLED MATERIALS WORKER - Last Filed: 09/23/24 00:54> Discharge Plan Discharge Clinical Impression: Sepsis, Community acquired pneumonia, Shortness of breath <Fabienne Aldana ROLLED MATERIALS WORKER - Last Filed: 09/23/24 00:54> Patient Disposition: Still a Patient <Fabienne Aldana APRN - Last Filed: 09/23/24 00:54> Condition: Stable <Fabienne Aldana APRN - Last Filed: 09/23/24 00:54> Patient Language: Azerbaijani <Fabienne Aldana APRN - Last Filed: 09/23/24 00:54> Prescriptions: No Action atorvastatin 20 mg tablet 20 mg PO HS Rx Instructions: Has been off since June due PCP order. lisinopril 10 mg tablet 20 mg PO DAILY montelukast 10 mg tablet 10 mg PO HS loratadine [Claritin] 10 mg Tablet 10 mg PO DAILY venlafaxine 150 mg capsule,extended release 24hr 150 mg PO DAILY Lorenza Flood U-100 Insulin 100 unit/mL insulin pen 1 sliding scale dose SUBCUT AC Rx Instructions: For blood sugar of 150 or less administer 18 units for blood sugar per 25 points greater than 150 administer 1 unit per 25 over insulin glargine-yfgn [Semglee(insulin glarg-yfgn)Pen] 100 unit/mL (3 mL) insulin pen 25 unit SUBCUT BID Mounjaro 5 mg/0.5 mL pen injector 5 mg SUBCUT WEEKLY Patient Comments: on Saturdays acetaminophen 500 mg Tablet 1,000 mg PO Q6H PRN (Reason: Pain Or Fever) Qty: 0 0RF tramadol 50 mg Tablet 50 mg PO Q4H PRN (Reason: Severe pain) Qty: 15 0RF albuterol sulfate 2.5 mg /3 mL (0.083 %) solution for nebulization 2.5 mg inhalation DAILY PRN (Reason: Shortness Of Breath) cetirizine [All Day Allergy (cetirizine)] 10 mg Tablet 10 mg PO DAILY fluticasone propionate 50 mcg/actuation [place],Suspension 1 spray INTRANASAL DAILY PRN (Reason: allergy symptoms) ergocalciferol (vitamin D2) 50,000 unit PO .COMPLEX Patient Comments: Patient takes on Wednesdays and Sundays Rx Instructions: 50,000 units orally twice a week; prednisone 20 mg tablet 40 mg PO DAILY@0800 cyclobenzaprine 10 mg tablet 10 mg PO DAILY Patient Comments: patient takes in the evening lisinopril 20 mg tablet 20 mg PO DAILY methotrexate sodium 2.5 mg tablet 12.5 mg PO WEEKLY Rx Instructions: on gabapentin 300 mg capsule 300 mg PO TID diclofenac sodium 75 mg tablet,delayed release (DR/EC) 75 mg PO BID folic acid 1 mg tablet 1 mg PO DAILY hydroxychloroquine 200 mg tablet 200 mg PO BID insulin glargine [Lantus Solostar U-100 Insulin] 100 unit/mL (3 mL) insulin pen 45 unit SUBCUT BID Patient Comments: in the morning and evening pantoprazole 40 mg tablet,delayed release (DR/EC) 40 mg PO DAILY <Fabienne Aldana APRN - Last Filed: 09/23/24 00:54> Follow-up/Referrals: PHYSICIAN NOT ON STAFF,NONSTAFF [Primary Care Provider] - <Fabienne Aldana APRN - Last Filed: 09/23/24 00:54>
[2024-09-22 23:38] LABS: INR 0.9; Prothrombin Time 12.6 Seconds (11.1-14.7)
[2024-09-22 23:39] LABS: Partial Thromboplastin Time 22.7 Seconds (22.3-36.8)
[2024-09-22 23:43] LABS: D Dimer 0.59 ug/mL (<0.48)
[2024-09-22 23:47] LABS: Lactic Acid Reflex 2.7 mmol/L (0.7-2.0)
[2024-09-22 23:52] LABS: NT Pro B Type Natriuretic Pept 204 pg/mL (19.9-100); Troponin I < 0.012 ng/mL (0.000-0.034)
[2024-09-23] VITALS (17 sets, daily range): BP systolic 147–164; BP diastolic 83–94; PULSE 91–114; RESP 16–20; TEMP 36.4–36.7; O2SAT 96–100; BMI 51.7
[2024-09-23 00:10] LABS: Thyroid Stimulating Hormone Reflex 0.245 uIU/mL (0.465-4.68)
--- OUTSIDE RECORDS SUMMARY | 2024-09-23 00:12 | XMS_ITS | Continuity of Care Document ---
Author Organization [facility] Address [address] [place] [address] Phone Care Team Providers Care Credentialer Name Role Phone Alex Ingram MD Unavailable [...] Diagnoses Date Provider Providers Copied on Encounter [facility], [address], [place], [place], [id number], [place] [phone] Professional Complete Exam (chief complaint) Diabetes mellitus without complication 3 Juan Jose Johnson. [address] [facility], [facility] [address], [place], [place], [id number], [place]. tel:[phone] Specialist: Ann Serrano MD, [address] [place], [address]. tel:[phone] alist: Ann Serrano MD, [facility] [place], [address]. tel:[phone] ring Provider: Kishor Saleh MD, [address] [facility] [address], [place], [address]. tel:[phone] [facility], [address], [place], [place], [id number], [place] tel:[phone] [place] Professional diabetic eye exam (chief complaint) Diabetes mellitus without complicationE pidemic keratoconjunc tivitis of both eyes 2 Juan Jose Johnson. [address] [facility], [address], [place], [place], [id number], [place]. tel:[phone] Specialist: Ann Serrano MD, [address] [place], [address]. tel:[phone] ring Provider: Kishor Saleh MD, [address] [facility] [address], [place], [address]. tel:[phone] Office/outpa tient Visit, Est [facility], [address], [place], [place], [id number], [place] tel:[phone] SEC Alexandre UNDERWOOD Professional 2 week EKC f/u (chief complaint) Epidemic keratoconjunc tivitis of both eyes 1 Juan Jose Johnson. [address] [employer], [facility] [address], [place], [place], [id number], [place]. tel:[phone] Specialist: Ann Serrano MD, [address] [place], [address]. tel:[phone] ring Provider: Kishor Saleh MD, [address] [facility] [address], [place], [address]. tel:[phone] Office/outpa tient Visit, [facility], [id number] [place] [address] [address], [place], [place], [id number], tel:[phone] SEC Alexandre UNDERWOOD Professional Complete Exam (chief complaint) Epidemic keratoconjunc tivitis of both eyesCorneal opacity of both eyes 1 Juan Jose Johnson. [address] [employer], [facility] [address], [place], [place], [id number], [place]. tel:[phone] Specialist: Ann Serrano MD, [address] [place], [address]. tel:[phone] ring Provider: Kishor Saleh MD, [address] [facility] [address], [place], [address]. tel:[phone] Family History Family Member Type Diagnosis Age At Onset Problem Family history of Diabetes m anna Payers Payer name Insurance type Covered libertarian ID Boby altman(s) R CI [id number] Social History Type Description Quantity Date Captured [...]
--- OUTSIDE RECORDS SUMMARY | 2024-09-23 00:12 | XMS_ITS | Encounter Summary ---
Author Organization [facility] Healthcare Address [address] [place] [address] Care Team Providers Care Brush Hand Name Role Phone Ann Serrano MD Unavailable [phone] Lynn Rodriguez MD Primary Care Provider Reason for Visit * Reason Onset Date Comments Cancel 08/30/2024 Encounter Details Date Type Department Care Team (Late st Contact Info) Description 08/30/2024 Telephone [facility] Rehabilitation Services at [address] [place] [address] Ele Vazquez, PT Cancel Social History Tobacco [...] on file Legal Sex Female 11:54 PM REAMING MACHINE TENDER Gender Identity Female 09/19/2020 8:37 AM REAMING MACHINE TENDER Sexual Orientation Straight 09/19/2020 8: 37 AM REAMING MACHINE TENDER documented as of this encounter Miscellaneous Notes * Telephone Encounter - Harry Butler - 08/30/2024 6:02 PM CST Pt cancelled their NEXT SCHEDULED Appt that was scheduled on 09/01/2024. Reason Given: Reason for cancellation: Canceled via MyChart Patient comments: still recovering from hospital stay Action Taken: No Action Required ING MACHINE TENDER documented in this encounter Plan of Treatment Not on file documented as of this encounter Visit Diagnoses Not on filedocumented in this encounter Care Teams Brush Hand Relationship Specialty [place] [address] [address] PCP - General Internal Medicine 04/06/24 Ann Serrano MD Referring Physician Endocrinology Diabetes & Metabolism 06/08/20 documented as of this encounter
--- OUTSIDE RECORDS SUMMARY | 2024-09-23 00:12 | XMS_ITS | Encounter Summary ---
Author Organization [facility] Address [address] [place] [address] Phone Care Team Providers Care Vessel Captain Name Role Phone Kishor Saleh MD Primary Care Provider [phone] Ann Serrano MD Unavailable [phone] No, Physician Primary Care Provider [phone] Kishor Saleh MD Primary Care Provider [phone] Lynn Rodriguez MD Primary Care Provider Encounter Details Date Type Department Care Team (Late st Contact Info) Description 09/30/2017 Orders Only [facility] ProviderStephenie MD [address] [place] [address] Social History Tobacco Use Types Packs/Day Years Used Date Smoking Tobacco: Never Smokeless Tobacco: Never Alcohol Use Standard Drinks/Week Comments No 0 (1 standard drink = 0.6 oz pur e alcohol) Comments Unknown Sex and Gender Information Value Date Recorded Sex Assigned at Not on file Legal Sex Female 11:54 PM CELL TUBER MACHINE Gender Identity Female 09/19/2020 8:37 AM CELL TUBER MACHINE Sexual Orientation Straight 09/19/2020 8: 37 AM CELL TUBER MACHINE documented as of this encounter Plan of Treatment Not on file documented as of this encounter Procedures Procedure Name Priority Date/Time Associated Diagnosis Comments DISCHARGE LABORATORY CUMULATIVE REPORT 09/30/2017 12:00 AM CELL TUBER MACHINE documented in this encounter Results * DISCHARGE LABORATORY CUMULATIVE REPORT (09/30/2017 12:00 AM CELL TUBER MACHINE) Narrative 09/30/2017 12:00 AM CELL TUBER MACHINE Ordered by an unspecified provider. us Historical Provider LAB BLOOD ORDERABLES Flora l Result documented in this encounter Visit Diagnoses Not on filedocumented in this encounter Additional Health Concerns Infection Onset Date Last Indicated Resolved Time COVID: Suspected 08/13/2022 08/13/2022 08/13/2022 1:16 PM CELL TUBER MACHINE documented as of this encounter Care Teams Vessel Captain Relationship Specialty Start Date End Date Kishor Saleh MD PCP - General 09/28/08 11/16/23 No, Physician PCP - General 11/17/23 12/28/23 Kishor Saleh MD [address] [facility] [address], [place] [address] PCP - General Internal Medicine 12/29/23 04/05/24 [place] [address] [facility] [address] [address] PCP - General Internal Medicine 04/06/24 Ann Serrano MD Referring Physician Endocrinology Diabetes & Metabolism 06/08/20 documented as of this encounter
--- OUTSIDE RECORDS SUMMARY | 2024-09-23 00:12 | XMS_ITS | Clinical Summary ---
Author Organization [facility] Address [address] [place] [address] Phone Care Team Providers Care Model Maker Apprentice Name Role Phone Masoud Hayes MD Primary Care Provider [phone] Allergies Active Allergy Reactions Criticality Noted Date [...] mouth daily. 30 Tablet 08/13/2022 2:47 PM DIRECTOR OF CATERING SALES 3 Active amLODIPine (NORVASC) 2.5 mg tablet Take 1 Tablet (2.5 mg) by mouth daily in the morning. 90 Tablet 05/29/2023 5:55 PM CDT 3 Active cyclobenzaprine (FLEXERIL) 5 mg Tablet TAKE 1-2 TABLETS BY MOUTH NIGHTLY TO REDUCE MUSCLE CRAMPS 60 Tablet 3 07/10/2023 3:38 PM DIRECTOR OF CATERING SALES 3 Active hydroxychloroqu ine (PLAQUENIL) 200 mg tablet TAKE 2 TABLETS BY MOUTH ONCE DAILY 60 Tablet 3 07/10/2023 3:38 PM DIRECTOR OF CATERING SALES 3 Active mycophenolate mofetil (CELLCEPT) 500 mg tablet TAKE 3 TABLETS BY MOUTH TWICE DAILY 180 Tablet 4 07/10/2023 3:38 PM DIRECTOR OF CATERING SALES 3 Active insulin glargine (LANTUS) 100 unit/mL [...] for pain 30 Tablet 07/13/2024 12:19 PM DIRECTOR OF CATERING SALES 4 Active methylPREDNISol one (Medrol, Marvel,) 4 [...] 3 Active fluticasone propionate (FLONASE) 50 mcg/spray [place], Suspension nasal inhaler Administer 2 Sprays in each nostril 1 time daily as needed. 3 Active folic acid (FOLVITE) 1 mg tablet 4 Active gabapentin (NEURONTIN) 300 mg capsule 4 Active glucagon (BAQSIMI) 3 mg/spray [place], Non-Aerosol Administer 1 [place] in each nostril. 4 Active insulin glargine-yfgn [...] daily. 120 Tablet 3 09/11/2024 3:51 PM DIRECTOR OF CATERING SALES 4 Active venlafaxine (EFFEXOR XR) 150 mg Extended Release 24 hour capsule Take 1 capsule (150 mg total) by mouth daily 30 Capsule 07/13/2024 12:19 PM DIRECTOR OF CATERING SALES 4 Active tirzepatide (Mounjaro) 10 mg/0.5 mL Pen Injector Inject 10 mg under the skin every 7 days 2 mL 3 09/04/2024 11:00 AM DIRECTOR OF CATERING SALES 4 Active Active Problems Patient Care Coordination No te Formatting of this note migh t be different from the original. Steel Heater: Dr. 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 Not on file Not on file Not on file Last Filed Vital Signs Vital Sign Reading Time Taken Comments Blood Pressure 128/90 06/21/2024 10:51 AM DIRECTOR OF CATERING SALES Pulse 82 03/22/2012 2:23 PM CDT Temperature - - Respiratory Rate 18 03/22/2012 2:23 PM CDT Oxygen Saturation 97% 03/22/2012 1:51 PM CDT Inhaled Oxygen Concentration - - Weight 141.2 kg (311 lb 3.2 oz) 024 10:51 AM DIRECTOR OF CATERING SALES Height 167.6 cm (5' 6 ) 05/17/2024 [...] 4:26 PM CDT) COMMENT (PAP): [facility] Comment: This order for age-based cervical cancer and STI screening follows ACOG guidelines(PB 168, 140, EYO530). See individual assays for performing site location. CLINICAL INFORMATION [facility] Comment:None given LAST MENSTRUAL PERIOD [facility] Comment:10/02/2023 PREV PAP: [facility] Comment:NONE GIVEN PREV BX: [facility] Comment:NONE GIVEN SOURCE [facility] Comment:Endocervix ADEQUACY: [facility] Comment: Satisfactory for evaluation. Endocervical/transformation zone component absent. PAP INTERP [employer] Ashley Comment: Cytology Results: Negative for intraepithelial lesion or malignancy. COMMENT (PAP TEST) Q uest [employer] Comment: This Pap test has been evaluated with computer assisted technology. FLAT SCREEN WORKER: Ni Ramirez Comment: MEF, CT(ASCP) CT screening location: [place] [address] [place] [address] EXPLANATORY NOTE Que [employer] Ramirez Comment: EXPLANATORY NOTE: The Pap is [...] information. HPV E6/E7 Not Detected Not Detected [employer]Rikki Ramirez Comment: Methodology: Pc Maintenance Technician-Mediated Amplification This assay detects E6/E7 viral messenger RNA (mRNA) from 14 high-risk HPV types (16,18,31,33,35,39,45,51,52,56,58,59,66,68). Cervical sources are required for HPV testing. If a vaginal source from a patient who has had a total hysterectomy with removal of cervix was submitted, please contact the testing laboratory for alternative testing options. For additional information, please refer to http://education.[employer]/faq/TBJ867f1 (This link if provided for information/ educational purposes only.) Test Performed at: [facility] [address] [address] Torin Dunn MD SL Genital SWAB OF ENDOCERVIX / Unknown 05/17/2024 4:26 PM CDT 05/18/2024 3:48 AM CDT us Kendrick Teague MD PATHOLOGY/CYTOLOGY ORDERABLE S Final Result [facility] [phone] YOU [employer] [address] [phone] from Last 3 Months or Most Recently Relevant to Health Maintenance Insurance RX [employer] RX Member Subscriber Plan / Payer (Ef fective 2023-Present) Name:Walt Huitron Relation to Subscriber:Self Name:Walt Huitron Subscriber ID:Not on file Payer ID:Not on file Group ID:[id number] Type:RX Commercial Address: [employer] PL[employer] (INTERNAL) [facility] Care Teams Model Maker Apprentice Relationship Specialty Start Date End Date Masoud Hayes MD PCP - General Internal Medicine 03/08/12
--- OUTSIDE RECORDS SUMMARY | 2024-09-23 00:12 | XMS_ITS | Encounter Summary ---
Author Organization [facility] Healthcare Address [address] [place] [address] Care Team Providers Care Prefinish Operator Name Role Phone Ann Serrano MD Unavailable [phone] Lynn Rodriguez MD Primary Care Provider Reason for Visit * Reason Onset Date Comments Cancel 09/02/2024 Encounter Details Date Type Department Care Team (Late st Contact Info) Description 09/02/2024 Telephone [facility] [place] [address] Tiffanie Cantu, PT Cancel Social History Tobacco [...] on file Legal Sex Female 11:54 PM CLEARANCE COORDINATOR Gender Identity Female 09/19/2020 8:37 AM CLEARANCE COORDINATOR Sexual Orientation Straight 09/19/2020 8: 37 AM CLEARANCE COORDINATOR documented as of this encounter Miscellaneous Notes * Telephone Encounter - Andria Ge - 09/02/2024 10:13 AM CST Pt cancelled their NEXT SCHEDULED Appt that was scheduled on 09/05/24. Reason Given: Patient comments: still recovering from hospital stay; limited mobility Action Taken: No Action Required RANCE COORDINATOR documented in this encounter Plan of Treatment Not on file documented as of this encounter Visit Diagnoses Not on filedocumented in this encounter Care Teams Prefinish Operator Relationship Specialty [place] [address] [address] PCP - General Internal Medicine 04/06/24 Ann Serrano MD Referring Physician Endocrinology Diabetes & Metabolism 06/08/20 documented as of this encounter
--- OUTSIDE RECORDS SUMMARY | 2024-09-23 00:12 | XMS_ITS | Continuity of Care Document ---
Author Organization [facility] Address [address] [place] [address] Phone Care Team Providers Care Stereotyper Helper Name Role Phone Tiffany Cox MD Unavailable [...] puff - Active Flonase 50 mcg/actuation Nasal Dingle spray 1 spray by intranasal route every [...] Diagnoses Date Provider Providers Copied on Encounter [facility], [address], [place], [place], [id number] , tel: [phone] [facility] No Information 5 Damien Allen. [address] [place] [address], [id number]. tel:[phone] [facility], [address], [place], [place], [address] , [place] tel: [phone] [facility] No Information 5-201 5 Damien Allen. [address] [place] [address], [id number]. tel:[phone] [facility], [address], [place], [place], [address] , [place] tel: [phone] [facility] No Information 4 Kay Zulma Allen. [address] [place] [address], [facility] [address], [place], [place], [id number]. tel:[phone] [facility], [address], [place], [place], [id number] , [place] tel: [phone] [facility] No Information 3 Kay Threats Tiffany. [address] [place] [address], [facility] [address], [place], [place], [id number]. tel:[phone] [facility], [address], [place], [place], [address] , [place] tel: [phone] [facility] Strain of right knee and leg 3 Shahmarcell Castellanos. [address] [place] [address], [facility], [place], [place], [id number], [place]. tel:[phone] Referring Provider: Tiffany Maya, [address] [place] [address], [place], [address] . tel:[phone] [facility], [address], [place], [place], [address] , [place] tel: [phone] [facility] No Information 3 Damienmissy Allen. [address] [place] [address], [facility] [address], [place], [place], [id number]. tel:[phone] [facility], [address], [place], [place], [address] , [place] tel: [phone] [facility] Type II diabetes mellitusDyslipidemi aContact with or exposure to tuberculosis 3 Kay Zulma Carrizalesan. [address] [place] [address], [place], [place], [id number]. tel:[phone] Referring Provider: Tiffany Maya, [address] [place] [address], [place], [address] . tel:[phone] [facility], [address], [place], [place], [address] , [place] tel: [phone] [facility] Diabetes mellitus without mention of complication, type II or unspecified type, uncontrolledAllergi c rhinitis, cause unspecifiedExtrinsi c asthmaMorbid obesityDiabetes mellitus without mention of complication, type II or unspecified type, not stated as uncontrolled 0 3 Damien Allen. [address] [place] [address], [place] [address], [place], [place], [id number]. tel:[phone] Referring Provider: Tiffany Maya, [address] [place] [address], [place], [address] . tel:[phone] [facility], [address], [place], [place], [id number] , tel: [phone] [facility] No Information 3 Damien Allen. [address] [place] [address], [id number]. tel:[phone] [facility], [address], [place], [place], [address] , [place] tel: [phone] [facility] No Information 3 Sarah Cutler. [address] [place] [address], [place], [place], [id number], [place]. tel:[phone] [employer], [address], [place], [place], [address] , tel: [phone] [facility] Bronchitis, not specified as acute or chronicBronchitis, not specified as acute or chronic 3 Damien Allen. [address] [place] [address], [address], [id number]. tel:[phone] Referring Provider: Tiffany Maya, [address] [place] [address], [place], [address] . tel:[phone] [employer], [address], [place], [place], [address] , tel: [phone] [facility] No Information 0 3 Sarah Cutler. [address], [place], [place], [address], [place]. [phone] [facility], [address], [place], [place], [id number] , tel: [phone] [facility] Diabetes mellitus without mention of complication, type II or unspecified type, uncontrolledEdemaIn fertility, female, associated with anovulationAllergic rhinitis, cause unspecifiedRoutine medical examMorbid obesityIrregular menses 3 Damien Maya Tiffany. [address], [address], [place], [place], [id number]. [phone] Referring Provider: Tiffany Maya, [facility], [place], [address] . tel:[phone] Family History Family Member Type Diagnosis Age At Onset Problem (finding) Family history of migra ine Problem (finding) Family history of alzhe rj's disease Problem (finding) Family history of coronary arteriosclerosis Problem (finding) Family history of Menta l illness Problem (finding) Family history of Diabe sheila mellitus Problem (finding) Family history of depre ssion Payers Payer name Insurance type Covered libertarian ID Authoriza tion(s) [employer] OPEN ACCESS I II III CI [id number] Social History Type Description Quantity Date Captured [...]
--- OUTSIDE RECORDS SUMMARY | 2024-09-23 00:12 | XMS_ITS | Referral Summary ---
Author Organization [facility] A Address [address] [place] [address] Care Team Providers Care Cleat Layer Name Role Phone Ann Serrano MD Unavailable [phone] Lynn Rodriguez MD Primary Care Provider Encounters Date Type Department Care Team Description 09/09/2024 Documentation [facility] at [address] [address] Tiffanie Cantu, PT PT Discharge 09/02/2024 Telephone [facility] at [address] [address] Tiffanie Cantu, PT Cancel 08/30/2024 Telephone [facility] at [address] [address] Ele Vazquez, PT Cancel 08/24/2024 Telephone [facility] [address] [place] [address] Yuki Mccain RN 08/23/2024 11:00 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 Office Visit [facility] - [facility] [id number] [place] [address] [address] [address] Lynn Rodriguez MD Mild intermittent extrinsic asthma without complication (Primary Dx); Impaired mobility; Acute hypoxic respiratory failure (HCC); History of respiratory syncytial virus (RSV) vaccination; Class 3 severe obesity due to excess calories with serious comorbidity and body mass index (BMI) of 45.0 to 49.9 in adult (HCC) 08/19/2024 Telephone [facility] [address] [place] [phone] Sarah Baird, RN Medical Question/Miscellane ous 08/19/2024 Telephone [facility] [address] [place] [phone] Sarah Baird, RN 08/18/2024 Telephone [facility] [address] [place] [phone] Sarah Baird, RN 08/17/2024 Telephone [facility] [address] [place] [phone] Sarah Baird, RN 08/09/2024 Orders Only [facility] Endocrinology Metabolism and Lipid [address] [facility] [address]th [place] [address] [place] [address] Stephanie Sandoval RMA Uncontrolled type 2 diabetes mellitus with hyperglycemia (HCC) 08/09/2024 Telephone [facility] at [address] [address] Ele Vazquez, PT Cancel 08/05/2024 Telephone [facility] at [address] [address] Ele Vazquez, PT Cancel (excused) 08/04/2024 Telephone [facility] at [address] [address] Tiffanie Cantu, PT Appointment 07/29/2024 Plan of Care Documentation [facility] at [address] [address] 07/29/2024 12:00 PM 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 Therapy [facility] at [address] [address] Tiffanie Cantu, PT Impaired mobility (Primary Dx); Lymphedema 07/13/2024 9:00 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 Office Visit [facility] Endocrinology Metabolism and Lipid [address] [facility] 13th [place] [address] [place] [id number] Shirley Teixeira PA Uncontrolled type 2 diabetes mellitus with hyperglycemia (HCC) (Primary Dx); Morbid obesity with BMI of 50.0-59.9, adult (HCC); Benign hypertension; Mixed hyperlipidemia; Vitamin D deficiency; residential 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 user; 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 Change sensor every 14 days 6 each 3 024 2024 Discontinued Active Problems Problem Noted Date Diagnosed Date Uncontrolled diabetes mellitus with hyperglycemi a 08/14/2024 Acute hypoxic respiratory failure 08/13/2024 Assessment & Plan (08/26/2024 6:09 PM 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): Recent hospitalization likely for CAP followed by RSV Symptoms resolved Impaired mobility 07/29/2024 residential (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 07/13/2024 termite renewal inspector 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 user 07/13/2024 Assessment & Plan (07/13/2024 12:22 PM 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): - Further complicates diabetes management Need for vaccination 04/06/2024 Assessment & Plan (04/06/2024 4:14 PM CDT): Received pneumonia vaccine today history of pneumonia currently no complaints last bout in 08/2023 Head trauma 09/04/2022 Assessment & Plan (09/04/2022 2:35 PM 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): No signs of neurological abnormality on examination [...] booster Assessment & Plan (06/24/2021 3:28 PM 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): Pito vaccine 10/05/2020 and Moderna booster Jun 2021 Major depressive disorder 04/22/2021 Assessment & Plan (01/06/2024 9:09 AM CDT): Stable on current medication regimen. Assessment & Plan (01/17/2022 10:21 AM CDT): Stable on current medication regimen. Assessment & Plan (07/17/2021 2:07 PM 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): Better controlled on venlafaxine. Assessment & Plan (04/22/2021 8:25 AM CDT): Restart venlafaxine and warned of side effects and call back if any develop or if no improvement. Type 2 diabetes mellitus with hyperlipidemia 06/2020 Assessment & Plan (01/06/2024 9:09 AM CDT): A1c above goal. Will start Mounjaro soon. Continue other medications as directed by her elementary assistant principal. Diet exercise discussed. Hopefully may be able to wean prednisone in the near future as well. Assessment & Plan (06/15/2023 10:48 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): She knows that the steroids will exacerbate her hyperglycemia and should be in contact with her elementary assistant principal for management. Assessment & Plan (06/08/2023 5:26 PM 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): Poor control of her diabetes prior to this hospitalization and even worse now on prednisone. Follow-up with her elementary assistant principal for management. Diet exercise weight loss recommended. Assessment & Plan (01/21/2023 9:50 AM CDT): Blood sugars remain above goal. Hopefully the recent addition of mounjaro will help significantly. Discuss up titration of this and her mealtime insulin with her elementary assistant principal. Diet exercise discussed. Check A1c and fasting blood sugar before next visit. Assessment & Plan (08/02/2022 12:16 PM 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): A1c poorly controlled. Importance of diet exercise weight loss discussed at length. Continue her Ozempic and insulin and needs to contact her elementary assistant principal soon as possible for guidance on further therapy. Assessment & Plan (01/17/2022 10:22 AM CDT): Patient aware A1c grossly uncontrolled. Must work on diet exercise and weight loss. She has to get back on her insulin and should discuss this today with her elementary assistant principal. Risks posed her health with poor glycemic control discussed. Assessment & Plan (07/13/2020 8:34 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): A1c above goal. Importance of diet exercise weight loss discussed. Continue current medication regimen and follow-up with her elementary assistant principal as they direct. 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 Unfortunately lab work and skin biopsy inconclusive. Discussed possible rheumatology 2nd opinion here at [facility] and patient will call back if desired. Assessment & Plan (06/15/2023 10:48 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): Certainly making a case for underlying vasculitis [...] condition. Assessment & Plan (06/20/2020 9:35 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): Unclear etiology but I am thinking of [...] 07/08/2019 Assessment & Plan (08/26/2024 6:10 PM 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): Body mass index is 49.1 kg/m . BMI Follow-up includes: nutrition counseling, exercise counseling, and education provided. Assessment & Plan (07/13/2024 12:20 PM 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): - Increase Mounjaro to 10 mg weekly [...] tolerated. Assessment & Plan (06/08/2023 5:23 PM 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): Patient is encouraged to lose weight with a combination of caloric reduction and increased exercise. Various strategies discussed. The long-term risks associated with continued morbid obesity discussed. Assessment & Plan (09/04/2022 2:34 PM 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): Patient is encouraged to lose weight with a combination of caloric reduction and increased exercise. Various strategies discussed. The long-term risks associated with continued morbid obesity discussed. Assessment & Plan (08/02/2022 12:16 PM 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): Patient is encouraged to lose weight with [...] discussed. Assessment & Plan (07/13/2020 8:34 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): Patient is encouraged to lose weight with a combination of caloric reduction and increased exercise. Various strategies discussed. The long-term risks associated with continued morbid obesity discussed. Assessment & Plan (06/20/2020 9:35 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): Patient is encouraged to lose weight with a combination of caloric reduction and increased exercise. Various strategies discussed. The long-term risks associated with continued morbid obesity discussed. Assessment & Plan (07/08/2019 8:44 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): Patient is encouraged to lose weight with a combination of caloric reduction and increased exercise. Various strategies discussed. The long-term risks associated with continued morbid obesity discussed. Irregular menses 06/03/2019 Allergic rhinitis 07/05/2018 Assessment & Plan (02/23/2023 1:30 PM CDT): Nasal saline spray (Simply saline, Little Remedies, [place], [place]) 2 second sprays or 2 squeezes into [...] daily Assessment & Plan (07/17/2021 2:07 PM 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): Claritin montelukast. Assessment & Plan (04/22/2021 8:25 AM CDT): Currently using Claritin and montelukast. She has not been trying Flonase as her nose is being to congested. Recommended sinus rinses her using a hot warm shower. Could also try Afrin for few days. Assessment & Plan (07/08/2019 8:43 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): Add montelukast to her Claritin. She struggles with nasal sprays due to chronic congestion. Assessment & Plan (07/05/2018 9:24 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): Try Afrin for 3 days along with initiating fluticasone. Stop Afrin in3 days and continue fluticasone indefinitely. continue Zyrtec. Mixed hyperlipidemia 07/02/2017 Assessment & Plan (07/13/2024 12:21 PM 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): - Last LDL 103, TG 308, TC [...] triglycerides. Assessment & Plan (09/12/2023 8:12 PM 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): Continue statin and optimize glycemic control Assessment & Plan (02/16/2023 8:14 PM CDT): Continue statin and optimize glycemic control Assessment & Plan (01/21/2023 9:50 AM CDT): Continue her atorvastatin and work on diet exercise and check lipids and LFTs before next visit. Assessment & Plan (08/02/2022 12:15 PM 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): Well controlled on current therapy and will check a lipid panel and LFTs in 6 months. Assessment & Plan (01/17/2022 10:21 AM CDT): Well controlled on current therapy and will check a lipid panel and LFTs in 6 months. Assessment & Plan (07/17/2021 2:06 PM 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): Well controlled on current therapy and will check a lipid panel and LFTs in 6 months. Assessment & Plan (06/24/2021 3:28 PM 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): Continue statin and optimize glycemic control Assessment & Plan (12/19/2020 7:53 AM CDT): Continue statin and optimize glycemic control Assessment & Plan (07/13/2020 8:34 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): Well controlled on current therapy and will check a lipid panel and LFTs in 6 months. Assessment & Plan (06/08/2020 8:31 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): LDL within goal. Continue statin and optimize glycemic control Assessment & Plan (07/08/2019 8:42 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): Well controlled on current therapy and will check a lipid panel and LFTs in 12 months. Assessment & Plan (09/01/2018 2:22 PM 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): Continue statin, optimize glycemic control Assessment & Plan (07/05/2018 9:23 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): Well controlled on current therapy and will check a lipid panel and LFTs in 6 months. Assessment & Plan (08/26/2017 4:27 PM 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): Start atorvastatin and check lipids and LFTs in 3-4 months. Call back for results. Vitamin D deficiency 07/02/2017 Assessment & Plan (07/13/2024 12:22 PM 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): - Last Vitamin D 42 (12/2023), replete [...] week Assessment & Plan (09/12/2023 8:12 PM 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): Continue long-term supplement Assessment & Plan (02/16/2023 8:14 PM CDT): Continue long-term supplement Assessment & Plan (08/02/2022 12:15 PM 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): Continue current supplementation and check level in 1 year. Assessment & Plan (07/17/2021 2:06 PM 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): Continue current supplementation and check level in 1 year. Assessment & Plan (06/24/2021 3:29 PM 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): Continue long-term supplement Assessment & Plan (12/19/2020 7:53 AM CDT): Continue long-term supplement Assessment & Plan (07/13/2020 8:33 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): Continue current supplementation and check level in 1 year. Assessment & Plan (06/08/2020 8:31 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): Vitamin-D level within goal, continue chronic supplement Assessment & Plan (07/08/2019 8:42 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): Continue current supplementation and check level in 1 year. Assessment & Plan (06/03/2019 8:24 AM CDT): Recently ran out of supplement, so we will restart and check her level today. Also check B12 Assessment & Plan (09/01/2018 2:22 PM 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): Continue supplement Assessment & Plan (07/05/2018 9:23 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): Continue current supplementation and check level in 1 year. Assessment & Plan (08/26/2017 4:26 PM 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): Continue current supplementation and check level in 1 year. Uncontrolled type 2 diabetes mellitus with hyper glycemia 03/24/2016 Overview (07/05/2018): Cannot tolerate metformin, glipizide due to nausea/vomiting; Invokana works better than jardiance. Does not tolerate acarbose Assessment & Plan (08/26/2024 6:10 PM 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): Assessment & Plan (07/13/2024 12:20 PM 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): - Diabetes is complicated by hyperlipidemia, hypertension, morbid obesity and chronic steroid use. Uncontrolled. Lab Results Component Value Date HGBA1C 11.7 07/13/2024 Per [employer], goal A1c is less 7% [...] in prescriptions for both Dexcom G7 and Sagence Silva 3 CGM for olivares checking. Also [...] Return visit 3 months to see the JAVA DEVELOPER ANALYST/PA, 6 months to see me. Assessment & [...] Component Value Date HGBA1C 12.5 11/17/2023 Per [employer], goal A1c is less 7% [...] that I am available via phone or [employer] if they have any concerns for hypo/hyperglycemia, medication refills, etc. Assessment & Plan (11/18/2023 8:23 AM CDT): - Diabetes is complicated by HTN, HLD, steroid use, hyperglycemia and obesity. Uncontrolled. Lab Results Component Value Date HGBA1C 12.5 11/17/2023 Per [employer], goal A1c is less 7% without significant hypoglycemia. - Management Goal: re-start and adherence to medication regimen - Continue current medication regimen at this time. - Patient called local pharmacy to confirm that they do have prescriptions for her Semglee. She is going to knot picker cloth today after this visit. - Insurance does [...] etc. Assessment & Plan (09/12/2023 8:13 PM 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): Very high glucoses; multifactorial including steroid therapy, [...] daily. Assessment & Plan (06/24/2021 3:29 PM 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): Much improved but needs a little more basal insulin. Assessment & Plan (12/19/2020 7:53 AM CDT): Multiple medications, but now requires insulin. We can gradually adjust her Lantus based on her clinical response. Assessment & Plan (06/08/2020 8:32 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): Glucoses somewhat better now that she is [...] motivator. Assessment & Plan (07/08/2019 8:43 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): Continue increased dose of Ozempic and also continue Invokana. Importance of dietary changes increase exercise weight loss discussed. Follow-up with her elementary assistant principal as they direct. Assessment & Plan (06/03/2019 8:25 AM CDT): Somewhat suboptimal, would benefit from increasing Ozempic and continuing efforts with diet and lifestyle. Needs follow-up labs Assessment & Plan (09/01/2018 2:22 PM 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): Glucoses a little high, but she has bruising with Victoza so she may benefit by changing to weekly Ozempic, which is a little stronger, as well. Jardiance is been ineffective, so we may need to provide preauthorization for Invokana Assessment & Plan (07/05/2018 9:23 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): A1c above goal. We stressed importance of increased exercise, reduce calories, weight loss. Could consider switching Victoza to ozempic. Otherwise does not tolerate metformin or sulfonylureas. May need insulin soon. She is directed to follow up with her elementary assistant principal more quickly than her next scheduled appointment in November. Assessment & Plan (08/26/2017 4:26 PM 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): Continue current medication regimen and follow up with her elementary assistant principal as they direct. Low carb diet weight loss recommended. Check blood sugars once daily. Start atorvastatin and check lipids and LFTs in 3-4 months. Anxiety state 12/17/2013 Overview (11/07/2016): ANXIETY STATE NOS Benign hypertension 12/17/2013 Overview (11/07/2016): BENIGN HYPERTENSION Assessment & Plan (07/13/2024 12:21 PM 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): - Above goal today - Encouraged her [...] monitor. Assessment & Plan (06/08/2023 5:25 PM 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): Stop amlodipine with current issues of swelling. Pressure currently well controlled and should monitor at home Assessment & Plan (01/21/2023 9:49 AM CDT): Blood pressure well controlled on lisinopril Assessment & Plan (09/04/2022 2:34 PM 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): Blood pressure well controlled on her lisinopril. Assessment & Plan (08/02/2022 12:15 PM 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): Increase lisinopril to 20 mg daily. Monitor blood pressure at home call back if no improvement. Assessment & Plan (01/17/2022 10:21 AM CDT): Well controlled on the current regimen. Avoidance of salt, proper body weight, and routine exercise recommended. Assessment & Plan (07/17/2021 2:06 PM 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): Well controlled on the current regimen. Avoidance of salt, proper body weight, and routine exercise recommended. Assessment & Plan (04/22/2021 8:24 AM CDT): Well controlled on the current regimen. Avoidance of salt, proper body weight, and routine exercise recommended. Assessment & Plan (07/13/2020 8:34 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): Well controlled on the current regimen. Avoidance of salt, proper body weight, and routine exercise recommended. Assessment & Plan (07/08/2019 8:42 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): Well controlled on the current regimen. Avoidance of salt, proper body weight, and routine exercise recommended. Assessment & Plan (09/01/2018 2:21 PM 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): Blood pressure close to target, working on diet and lifestyle Assessment & Plan (07/05/2018 9:23 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): Well controlled on the current regimen. Avoidance of salt, proper body weight, and routine exercise recommended. Assessment & Plan (08/26/2017 4:25 PM 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): Well controlled on the current regimen. Avoidance of salt, proper body weight, and routine exercise recommended. Anemia 12/29/2012 Extrinsic asthma 08/19/2012 Overview (06/03/2019): Description: frequent flares Assessment & Plan (08/26/2024 6:08 PM 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): Recent exacerbation due to CAP followed by RSV Symptoms improved Continue present plan and medication--albuterol prn, montelukast Assessment & Plan (07/13/2020 8:36 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): Doing well on her Symbicort. Okay to discontinue and use albuterol only as needed. Restart Symbicort if uses her albuterol more than 2 times a week. Sleep apnea syndrome 04/01/2012 Overview (11/12/2017): Description: CPAP Assessment & Plan (01/06/2024 9:08 AM CDT): Patient is compliant with the CPAP machine and gets symptomatic relief. Assessment & Plan (08/02/2022 12:15 PM 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): Patient is compliant with the CPAP machine and gets symptomatic relief. Assessment & Plan (07/17/2021 2:06 PM 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): Repeat sleep study confirmed obstructive sleep apnea [...] syndrome. Assessment & Plan (07/13/2020 8:34 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): Patient is compliant with the CPAP machine and gets symptomatic relief. Assessment & Plan (07/08/2019 8:42 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): Patient is compliant with the CPAP machine [...] legs Assessment & Plan (06/15/2023 10:47 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): Improved after addition of doxycycline to her Bactrim. Call back if symptoms worsen after doxycycline runs out Assessment & Plan (06/08/2023 5:25 PM 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): Seems like cellulitis slow to improve either [...] yearly. Colonoscopy due March 2027. Follow-up the oss architect for breast exam pelvic exam as they direct. Will see her back in about 6 months sooner if needed. Assessment & Plan (08/02/2022 12:17 PM 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): Flu shot each May. Tetanus booster every 10 years. Pneumovax completed. COVID booster recommended. Mammogram yearly. Colonoscopy due March 2027. Follow-up the oss architect for breast exam pelvic exam as they direct. Will see her back in 6 months with lab sooner if needed. Assessment & Plan (07/17/2021 2:08 PM 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): Flu shot each May. Tetanus booster every 10 years. Pneumovax completed. COVID vaccine completed. Mammogram yearly. Colonoscopy ordered and she should verify coverage before proceeding. Follow-up the oss architect for breast exam and pelvic exam as they direct. We will see her back in 1 year for physical and fasting lab sooner if needed. Assessment & Plan (07/13/2020 8:35 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): Flu shot each May. Tetanus booster every 10 years. She has had a Pneumovax. Mammogram was abnormal back in August and she has delayed follow-up studies until now and she is urged to get her diagnostic and ultrasound studies done at her earliest convenience and she is aware of the risks posed her health with delay in proceeding. Follow-up the oss architect for breast exam and pelvic exam as they direct. We will see her back in 1 year for wellness visit fasting lab sooner if needed. Assessment & Plan (07/08/2019 8:43 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): Flu shot each May. Tetanus booster every 10 years. Mammogram ordered. Will see her back in 1 year for physical and fasting lab sooner if needed. Assessment & Plan (07/05/2018 9:24 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): Tetanus booster today. Flu shot each May. Mammogram ordered. Patient should follow-up the oss architect breast exam and pelvic exam. We will see her back in 1 year for wellness visit fasting lab sooner if needed. Assessment & Plan (08/26/2017 4:27 PM 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): Flu shot each May. Tetanus booster every 10 years. See her oss architect for breast exam mammogram and Pap smear is a direct. We will see her back in 1 year with fasting lab sooner if needed. Morbid obesity 08/26/2017 07/05/2018 Assessment & Plan (08/26/2017 4:28 PM 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): Patient is encouraged to lose weight with [...] Unspecified 05/16/2021,2020,04/22/2021(Defer red: Patient Refused),03/19/2021(Deferred: Patient Refused),05/12/2019,05/07/2017 [facility] SARS-CoV-2 Vaccination 10/05/2020 Pneumococcal Conjugate Pcv20 [...] on file Legal Sex Female 11:54 PM 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 Gender Identity Female 09/19/2020 8:37 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 Sexual Orientation Straight 09/19/2020 8: 37 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 Last Filed Vital Signs Vital Sign Reading Time Taken Comments Blood Pressure 124/88 08/23/2024 10:35 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 Pulse 91 08/23/2024 10:35 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 Temperature 36.5 C (97.7 F) 08/23/2024 10:35 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 Respiratory Rate 24 08/23/2024 10:35 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 Oxygen Saturation 98% 08/23/2024 10:35 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 Inhaled Oxygen Concentration - - Weight 138 kg (304 lb 3.8 oz) 08/23/2024 10:35 A M 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 Height 167.6 cm (5' 6 ) 08/23/2024 10:35 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 Body Mass Index 49.1 08/23/2024 10:35 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 Plan of Treatment Not on file Procedures Procedure Name Priority Date/Time Associated Diagnosis Comments POCT HEMOGLOBIN A1C Routine 07/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 Uncontrolled type 2 diabetes mellitus with hyperglycemia (HCC) POCT GLUCOSE 18857 Routine 07/13/2024 9: 08 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 Uncontrolled type 2 diabetes mellitus with hyperglycemia [...] Results * POCT glucose (07/13/2024 9:08 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) Glucose Blood, POC 161 mg/dL Blood 07/13/2024 9:08 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 Shirley CHUN POINT OF CARE TEST ORDERA BLES Final Result * POCT hemoglobin A1c (07/13/2024 9:08 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 BUN 15 7 - 25 mg/dL [facility] [employer] ian Sheehan Creatinine 0.69 0.50 - 0.99 mg/dL [facility] [employer] ian Sheehan eGFR 108 > OR = 60 mL/min/1.7 3m2 [facility] BUN/creat ratio SEE NOTE: 6 - 22 (calc) [facility] Comment: Not Reported: BUN and Creatinine are within reference range. Sodium 138 135 - 146 mmol/L [facility] Potassium, pl 4.1 3.5 - 5.3 mmol/L [facility] Chloride 97(L) 98 - 110 mmol/L [employer] ian Sheehan CO2 30 20 - 32 mmol/L [employer] ian [facility] Calcium 9.7 8.6 - 10.2 mg/dL [facility] [employer] ian Sheehan Protein, sr 7.0 6.1 - 8.1 g/dL [employer] Albumin 4.3 3.6 - 5.1 g/dL [employer] GLOBULIN 2.7 1.9 - 3.7 g/dL (calc) [facility] [employer] [facility] Alb/glob ratio 1.6 1.0 - 2.5 (calc) [facility] [employer] [facility] Bilirubin, total 0.6 0.2 - 1.2 mg/dL [facility] [employer] ian Sheehan Alk phos 46 31 - 125 U/L [facility] AST 13 10 - 35 U/L [facility] ALT (SGPT) 32(H) 6 - 29 U/L [facility] Blood 12/29/2023 1:40 PM CDT 12/29/2023 1:42 PM CDT Narrative [facility] - 12/30/2023 3:37 PM CDT FASTING:YES FASTING: YES Kishor Saleh MD LAB BLOOD ORDERABLES Final R esult Performing Organization Address City/[facility]/ZIP Co de Phone Number [facility] [address] [place] [address] * Albumin Creatinine Ratio, Urine (12/29/2023 12:26 PM CDT) Albumin Ur 14.1 mg/L Comment: Interpretive Data No reference range established. Current interpretive data was last revised 2018. Creatinine Ur 117.0 mg/dL [facility] Comment: Interpretive Data No reference range established. Current interpretive data was last revised 2018. Albumin Creatinine Ratio, Ur 12 1 - 29 mg/g [facility] Urine 12/29/2023 12:2 6 PM CDT 12/29/2023 1:04 PM CDT Shirley CHUN LAB URINE ORDERABLES Flora l Result Performing Organization Address [facility] Co de Phone Number [facility] [place] [address] * (ABNORMAL) Lipid panel (12/29/2023 12:26 PM [...] on 2018. Triglycerides 265(H) <=149 mg/dL [facility] Comment: Interpretive Data Ages < or [...] on 2018. HDL 87 >=40 mg/dL [facility] Comment: Interpretive Data Ages < or [...] 2018. LDL, calculated 68 <=129 mg/dL [facility] Comment: Interpretive Data Ages < or [...] last revised on 2018. Chol/HDL ratio 2 [facility] Blood 12/29/2023 12:2 6 PM CDT 12/29/2023 1:04 PM CDT Shirley CHUN LAB BLOOD ORDERABLES Flora dowd Result [facility] [place] [address] * Screening Mammogram Bilateral W Vincenzo (12/29/2023 9:26 AM CDT) Anatomical Region Laterality Modality Breast Bilateral Mammography Narrative 12/30/2023 2:01 PM CDT Mammogram Technique: Bilateral Digital Breast Tomosynthesis, Bilateral C-view 2D Screening mammogram. Views obtained: bilateral craniocaudal and bilateral mediolateral oblique. Computer Aided Detection was performed. Mammogram Findings: The present examination has been compared to prior imaging studies performed at [facility]. [facility] on 01/01/2022 and 02/25/2023, and at [facility]. [place], [place] on 09/12/2020. There are scattered areas [...] compared to prior imaging studies performed at [facility]. [facility] on 01/01/2022 and 02/25/2023, and at [facility]. [place], [place] on 09/12/2020. There are scattered areas of fibroglandular density. There is no suspicious abnormality in either breast. Impression: There is no mammographic evidence of malignancy. Annual screening mammography is recommended. OVERALL FINAL ASSESSMENT: BI-RADS CATEGORY 1: Negative. Kishor Saleh MD IMG MAMMO PROCEDURES Final R esult * Diabetic Eye Exam (11/10/2022) us Generic External Data Provider [facility] Final Result * COLONOSCOPY (04/02/2022 9:28 AM CDT) Anatomical Region Laterality Modality Other Narrative Procedure Note Ad Camacho MD - 04/02/2022 9:28 AM CDT [facility] Patient Name: Camila Huitron Procedure Date: 04/02/2022 9:28 AM Date of : 1975 Admit Type: Outpatient Age: 46 Gender: Female Attending MD: Ad Camacho M.D. Room: [facility] ENDOSCOPY ROOM 2 Note Status: Finalized Patient [...] scope was passed under direct vision. TheColonoscope [id number] was introduced through the anus and advanced [...] 9:28 AM Procedure Code(s): --- Professional --- 10056, Colonoscopy, flexible; with biopsy, single or multiple Diagnosis Code(s): --- Professional --- Z12.11, Encounter for screening for malignant neoplasm of colon D12.3, Benign neoplasm of transverse colon (hepatic flexure orsplenic flexure) D12.4, Benign neoplasm of descending colon D12.8, Benign neoplasm of rectum CPT copyright 2020 [employer]. All rights reserved. The codes documented in this report are preliminary and upon woods warden reviewmay be revised to meet current compliance requirements. Recognized by the [employer] for promoting quality in endoscopy Ad Camacho MD ENDOSCOPY PROCEDURES Final Resul t * Diabetic Foot Exam (03/26/2021) Impressions Art Staley MA - 03/26/2021 In care everywhere Historical Provider HEALTH MAINTENANCE Final Result from Last 3 Months or Most Recently Relevant to Health Maintenance Insurance [employer] [facility] Advance Directives For more information, please contact: [phone] * Full Code (Latest Code Status on File) Date Activated Date Inactivated Comments 04/02/2022 9:27 AM 04/02/2022 4:47 PM * Full Code Date Activated Date Inactivated Comments 04/02/2022 9:27 AM 04/02/2022 9:27 AM Care Teams Cleat Layer Relationship Specialty [place] [id number] [facility] [address] [place] [address] PCP - General Internal Medicine 04/06/24 Ann Serrano MD Referring Physician Endocrinology Diabetes & Metabolism 06/08/20
--- OUTSIDE RECORDS SUMMARY | 2024-09-23 00:12 | XMS_ITS | Clinical Summary ---
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 07/13/2024 Assessment & Plan (07/13/2024 12:22 PM WASTEWATER ANALYST LAB ANALYST): - Further complicates diabetes management Need for vaccination 04/06/2024 Assessment & Plan (04/06/2024 4:14 PM CDT): Received pneumonia vaccine today history of pneumonia currently no complaints last bout in 08/2023 Head trauma 09/04/2022 Assessment & Plan (09/04/2022 2:35 PM WASTEWATER ANALYST LAB ANALYST): No signs of neurological abnormality on examination [...] booster Assessment & Plan (06/24/2021 3:28 PM WASTEWATER ANALYST LAB ANALYST): Pito vaccine 10/05/2020 and Moderna booster Jun 2021 Major depressive disorder 04/22/2021 Assessment & Plan (01/06/2024 9:09 AM CDT): Stable on current medication regimen. Assessment & Plan (01/17/2022 10:21 AM CDT): Stable on current medication regimen. Assessment & Plan (07/17/2021 2:07 PM WASTEWATER ANALYST LAB ANALYST): Better controlled on venlafaxine. Assessment & Plan (04/22/2021 8:25 AM CDT): Restart venlafaxine and warned of side effects and call back if any develop or if no improvement. Type 2 diabetes mellitus with hyperlipidemia 06/2020 Assessment & Plan (01/06/2024 9:09 AM CDT): A1c above goal. Will start Mounjaro soon. Continue other medications as directed by her aquatic centre manager. Diet exercise discussed. Hopefully may be able to wean prednisone in the near future as well. Assessment & Plan (06/15/2023 10:48 AM WASTEWATER ANALYST LAB ANALYST): She knows that the steroids will exacerbate her hyperglycemia and should be in contact with her aquatic centre manager for management. Assessment & Plan (06/08/2023 5:26 PM WASTEWATER ANALYST LAB ANALYST): Poor control of her diabetes prior to this hospitalization and even worse now on prednisone. Follow-up with her aquatic centre manager for management. Diet exercise weight loss recommended. Assessment & Plan (01/21/2023 9:50 AM CDT): Blood sugars remain above goal. Hopefully the recent addition of mounjaro will help significantly. Discuss up titration of this and her mealtime insulin with her aquatic centre manager. Diet exercise discussed. Check A1c and fasting blood sugar before next visit. Assessment & Plan (08/02/2022 12:16 PM WASTEWATER ANALYST LAB ANALYST): A1c poorly controlled. Importance of diet exercise weight loss discussed at length. Continue her Ozempic and insulin and needs to contact her aquatic centre manager soon as possible for guidance on further therapy. Assessment & Plan (01/17/2022 10:22 AM CDT): Patient aware A1c grossly uncontrolled. Must work on diet exercise and weight loss. She has to get back on her insulin and should discuss this today with her aquatic centre manager. Risks posed her health with poor glycemic control discussed. Assessment & Plan (07/13/2020 8:34 AM WASTEWATER ANALYST LAB ANALYST): A1c above goal. Importance of diet exercise weight loss discussed. Continue current medication regimen and follow-up with her aquatic centre manager as they direct. 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 Unfortunately lab work and skin biopsy inconclusive. Discussed possible rheumatology 2nd opinion here at [facility] and patient will call back if desired. Assessment & Plan (06/15/2023 10:48 AM WASTEWATER ANALYST LAB ANALYST): Certainly making a case for underlying vasculitis [...] condition. Assessment & Plan (06/20/2020 9:35 AM WASTEWATER ANALYST LAB ANALYST): Unclear etiology but I am thinking of [...] 07/08/2019 Assessment & Plan (08/26/2024 6:10 PM WASTEWATER ANALYST LAB ANALYST): Body mass index is 49.1 kg/m . BMI Follow-up includes: nutrition counseling, exercise counseling, and education provided. Assessment & Plan (07/13/2024 12:20 PM WASTEWATER ANALYST LAB ANALYST): - Increase Mounjaro to 10 mg weekly [...] tolerated. Assessment & Plan (06/08/2023 5:23 PM WASTEWATER ANALYST LAB ANALYST): Patient is encouraged to lose weight with a combination of caloric reduction and increased exercise. Various strategies discussed. The long-term risks associated with continued morbid obesity discussed. Assessment & Plan (09/04/2022 2:34 PM WASTEWATER ANALYST LAB ANALYST): Patient is encouraged to lose weight with a combination of caloric reduction and increased exercise. Various strategies discussed. The long-term risks associated with continued morbid obesity discussed. Assessment & Plan (08/02/2022 12:16 PM WASTEWATER ANALYST LAB ANALYST): Patient is encouraged to lose weight with [...] discussed. Assessment & Plan (07/13/2020 8:34 AM WASTEWATER ANALYST LAB ANALYST): Patient is encouraged to lose weight with a combination of caloric reduction and increased exercise. Various strategies discussed. The long-term risks associated with continued morbid obesity discussed. Assessment & Plan (06/20/2020 9:35 AM WASTEWATER ANALYST LAB ANALYST): Patient is encouraged to lose weight with a combination of caloric reduction and increased exercise. Various strategies discussed. The long-term risks associated with continued morbid obesity discussed. Assessment & Plan (07/08/2019 8:44 AM WASTEWATER ANALYST LAB ANALYST): Patient is encouraged to lose weight with a combination of caloric reduction and increased exercise. Various strategies discussed. The long-term risks associated with continued morbid obesity discussed. Irregular menses 06/03/2019 Allergic rhinitis 07/05/2018 Assessment & Plan (02/23/2023 1:30 PM CDT): Nasal saline spray (Simply saline, [employer] Remedies, [place], [place]) 2 second sprays or 2 squeezes into [...] daily Assessment & Plan (07/17/2021 2:07 PM WASTEWATER ANALYST LAB ANALYST): Claritin montelukast. Assessment & Plan (04/22/2021 8:25 AM CDT): Currently using Claritin and montelukast. She has not been trying Flonase as her nose is being to congested. Recommended sinus rinses her using a hot warm shower. Could also try Afrin for few days. Assessment & Plan (07/08/2019 8:43 AM WASTEWATER ANALYST LAB ANALYST): Add montelukast to her Claritin. She struggles with nasal sprays due to chronic congestion. Assessment & Plan (07/05/2018 9:24 AM WASTEWATER ANALYST LAB ANALYST): Try Afrin for 3 days along with initiating fluticasone. Stop Afrin in3 days and continue fluticasone indefinitely. continue Zyrtec. Mixed hyperlipidemia 07/02/2017 Assessment & Plan (07/13/2024 12:21 PM WASTEWATER ANALYST LAB ANALYST): - Last LDL 103, TG 308, TC [...] triglycerides. Assessment & Plan (09/12/2023 8:12 PM WASTEWATER ANALYST LAB ANALYST): Continue statin and optimize glycemic control Assessment & Plan (02/16/2023 8:14 PM CDT): Continue statin and optimize glycemic control Assessment & Plan (01/21/2023 9:50 AM CDT): Continue her atorvastatin and work on diet exercise and check lipids and LFTs before next visit. Assessment & Plan (08/02/2022 12:15 PM WASTEWATER ANALYST LAB ANALYST): Well controlled on current therapy and will check a lipid panel and LFTs in 6 months. Assessment & Plan (01/17/2022 10:21 AM CDT): Well controlled on current therapy and will check a lipid panel and LFTs in 6 months. Assessment & Plan (07/17/2021 2:06 PM WASTEWATER ANALYST LAB ANALYST): Well controlled on current therapy and will check a lipid panel and LFTs in 6 months. Assessment & Plan (06/24/2021 3:28 PM WASTEWATER ANALYST LAB ANALYST): Continue statin and optimize glycemic control Assessment & Plan (12/19/2020 7:53 AM CDT): Continue statin and optimize glycemic control Assessment & Plan (07/13/2020 8:34 AM WASTEWATER ANALYST LAB ANALYST): Well controlled on current therapy and will check a lipid panel and LFTs in 6 months. Assessment & Plan (06/08/2020 8:31 AM WASTEWATER ANALYST LAB ANALYST): LDL within goal. Continue statin and optimize glycemic control Assessment & Plan (07/08/2019 8:42 AM WASTEWATER ANALYST LAB ANALYST): Well controlled on current therapy and will check a lipid panel and LFTs in 12 months. Assessment & Plan (09/01/2018 2:22 PM WASTEWATER ANALYST LAB ANALYST): Continue statin, optimize glycemic control Assessment & Plan (07/05/2018 9:23 AM WASTEWATER ANALYST LAB ANALYST): Well controlled on current therapy and will check a lipid panel and LFTs in 6 months. Assessment & Plan (08/26/2017 4:27 PM WASTEWATER ANALYST LAB ANALYST): Start atorvastatin and check lipids and LFTs in 3-4 months. Call back for results. Vitamin D deficiency 07/02/2017 Assessment & Plan (07/13/2024 12:22 PM WASTEWATER ANALYST LAB ANALYST): - Last Vitamin D 42 (12/2023), replete [...] week Assessment & Plan (09/12/2023 8:12 PM WASTEWATER ANALYST LAB ANALYST): Continue long-term supplement Assessment & Plan (02/16/2023 8:14 PM CDT): Continue long-term supplement Assessment & Plan (08/02/2022 12:15 PM WASTEWATER ANALYST LAB ANALYST): Continue current supplementation and check level in 1 year. Assessment & Plan (07/17/2021 2:06 PM WASTEWATER ANALYST LAB ANALYST): Continue current supplementation and check level in 1 year. Assessment & Plan (06/24/2021 3:29 PM WASTEWATER ANALYST LAB ANALYST): Continue long-term supplement Assessment & Plan (12/19/2020 7:53 AM CDT): Continue long-term supplement Assessment & Plan (07/13/2020 8:33 AM WASTEWATER ANALYST LAB ANALYST): Continue current supplementation and check level in 1 year. Assessment & Plan (06/08/2020 8:31 AM WASTEWATER ANALYST LAB ANALYST): Vitamin-D level within goal, continue chronic supplement Assessment & Plan (07/08/2019 8:42 AM WASTEWATER ANALYST LAB ANALYST): Continue current supplementation and check level in 1 year. Assessment & Plan (06/03/2019 8:24 AM CDT): Recently ran out of supplement, so we will restart and check her level today. Also check B12 Assessment & Plan (09/01/2018 2:22 PM WASTEWATER ANALYST LAB ANALYST): Continue supplement Assessment & Plan (07/05/2018 9:23 AM WASTEWATER ANALYST LAB ANALYST): Continue current supplementation and check level in 1 year. Assessment & Plan (08/26/2017 4:26 PM WASTEWATER ANALYST LAB ANALYST): Continue current supplementation and check level in 1 year. Uncontrolled type 2 diabetes mellitus with hyper glycemia 03/24/2016 Overview (07/05/2018): Cannot tolerate metformin, glipizide due to nausea/vomiting; Invokana works better than jardiance. Does not tolerate acarbose Assessment & Plan (08/26/2024 6:10 PM WASTEWATER ANALYST LAB ANALYST): Assessment & Plan (07/13/2024 12:20 PM WASTEWATER ANALYST LAB ANALYST): - Diabetes is complicated by hyperlipidemia, hypertension, morbid obesity and chronic steroid use. Uncontrolled. Lab Results Component Value Date HGBA1C 11.7 07/13/2024 Per [place] [employer], goal A1c is less 7% [...] in prescriptions for both Dexcom G7 and [employer] Silva 3 CGM for olivares checking. Also [...] Return visit 3 months to see the PER DIEM/PA, 6 months to see me. Assessment & [...] Component Value Date HGBA1C 12.5 11/17/2023 Per [place] [employer], goal A1c is less 7% [...] that I am available via phone or [employer] Please[employer] if they have any concerns for hypo/hyperglycemia, medication refills, etc. Assessment & Plan (11/18/2023 8:23 AM CDT): - Diabetes is complicated by HTN, HLD, steroid use, hyperglycemia and obesity. Uncontrolled. Lab Results Component Value Date HGBA1C 12.5 11/17/2023 Per [place] [employer], goal A1c is less 7% without significant hypoglycemia. - Management Goal: re-start and adherence to medication regimen - Continue current medication regimen at this time. - Patient called local pharmacy to confirm that they do have prescriptions for her Semglee. She is going to pharmacy picking technician today after this visit. - Insurance does [...] etc. Assessment & Plan (09/12/2023 8:13 PM WASTEWATER ANALYST LAB ANALYST): Very high glucoses; multifactorial including steroid therapy, [...] daily. Assessment & Plan (06/24/2021 3:29 PM WASTEWATER ANALYST LAB ANALYST): Much improved but needs a little more basal insulin. Assessment & Plan (12/19/2020 7:53 AM CDT): Multiple medications, but now requires insulin. We can gradually adjust her Lantus based on her clinical response. Assessment & Plan (06/08/2020 8:32 AM WASTEWATER ANALYST LAB ANALYST): Glucoses somewhat better now that she is [...] motivator. Assessment & Plan (07/08/2019 8:43 AM WASTEWATER ANALYST LAB ANALYST): Continue increased dose of Ozempic and also continue Invokana. Importance of dietary changes increase exercise weight loss discussed. Follow-up with her aquatic centre manager as they direct. Assessment & Plan (06/03/2019 8:25 AM CDT): Somewhat suboptimal, would benefit from increasing Ozempic and continuing efforts with diet and lifestyle. Needs follow-up labs Assessment & Plan (09/01/2018 2:22 PM WASTEWATER ANALYST LAB ANALYST): Glucoses a little high, but she has bruising with Victoza so she may benefit by changing to weekly Ozempic, which is a little stronger, as well. Jardiance is been ineffective, so we may need to provide preauthorization for Invokana Assessment & Plan (07/05/2018 9:23 AM WASTEWATER ANALYST LAB ANALYST): A1c above goal. We stressed importance of increased exercise, reduce calories, weight loss. Could consider switching Victoza to ozempic. Otherwise does not tolerate metformin or sulfonylureas. May need insulin soon. She is directed to follow up with her aquatic centre manager more quickly than her next scheduled appointment in November. Assessment & Plan (08/26/2017 4:26 PM WASTEWATER ANALYST LAB ANALYST): Continue current medication regimen and follow up with her aquatic centre manager as they direct. Low carb diet weight loss recommended. Check blood sugars once daily. Start atorvastatin and check lipids and LFTs in 3-4 months. Anxiety state 12/17/2013 Overview (11/07/2016): ANXIETY STATE NOS Benign hypertension 12/17/2013 Overview (11/07/2016): BENIGN HYPERTENSION Assessment & Plan (07/13/2024 12:21 PM WASTEWATER ANALYST LAB ANALYST): - Above goal today - Encouraged her [...] monitor. Assessment & Plan (06/08/2023 5:25 PM WASTEWATER ANALYST LAB ANALYST): Stop amlodipine with current issues of swelling. Pressure currently well controlled and should monitor at home Assessment & Plan (01/21/2023 9:49 AM CDT): Blood pressure well controlled on lisinopril Assessment & Plan (09/04/2022 2:34 PM WASTEWATER ANALYST LAB ANALYST): Blood pressure well controlled on her lisinopril. Assessment & Plan (08/02/2022 12:15 PM WASTEWATER ANALYST LAB ANALYST): Increase lisinopril to 20 mg daily. Monitor blood pressure at home call back if no improvement. Assessment & Plan (01/17/2022 10:21 AM CDT): Well controlled on the current regimen. Avoidance of salt, proper body weight, and routine exercise recommended. Assessment & Plan (07/17/2021 2:06 PM WASTEWATER ANALYST LAB ANALYST): Well controlled on the current regimen. Avoidance of salt, proper body weight, and routine exercise recommended. Assessment & Plan (04/22/2021 8:24 AM CDT): Well controlled on the current regimen. Avoidance of salt, proper body weight, and routine exercise recommended. Assessment & Plan (07/13/2020 8:34 AM WASTEWATER ANALYST LAB ANALYST): Well controlled on the current regimen. Avoidance of salt, proper body weight, and routine exercise recommended. Assessment & Plan (07/08/2019 8:42 AM WASTEWATER ANALYST LAB ANALYST): Well controlled on the current regimen. Avoidance of salt, proper body weight, and routine exercise recommended. Assessment & Plan (09/01/2018 2:21 PM WASTEWATER ANALYST LAB ANALYST): Blood pressure close to target, working on diet and lifestyle Assessment & Plan (07/05/2018 9:23 AM WASTEWATER ANALYST LAB ANALYST): Well controlled on the current regimen. Avoidance of salt, proper body weight, and routine exercise recommended. Assessment & Plan (08/26/2017 4:25 PM WASTEWATER ANALYST LAB ANALYST): Well controlled on the current regimen. Avoidance of salt, proper body weight, and routine exercise recommended. Anemia 12/29/2012 Extrinsic asthma 08/19/2012 Overview (06/03/2019): Description: frequent flares Assessment & Plan (08/26/2024 6:08 PM WASTEWATER ANALYST LAB ANALYST): Recent exacerbation due to CAP followed by RSV Symptoms improved Continue present plan and medication--albuterol prn, montelukast Assessment & Plan (07/13/2020 8:36 AM WASTEWATER ANALYST LAB ANALYST): Doing well on her Symbicort. Okay to discontinue and use albuterol only as needed. Restart Symbicort if uses her albuterol more than 2 times a week. Sleep apnea syndrome 04/01/2012 Overview (11/12/2017): Description: CPAP Assessment & Plan (01/06/2024 9:08 AM CDT): Patient is compliant with the CPAP machine and gets symptomatic relief. Assessment & Plan (08/02/2022 12:15 PM WASTEWATER ANALYST LAB ANALYST): Patient is compliant with the CPAP machine and gets symptomatic relief. Assessment & Plan (07/17/2021 2:06 PM WASTEWATER ANALYST LAB ANALYST): Repeat sleep study confirmed obstructive sleep apnea [...] syndrome. Assessment & Plan (07/13/2020 8:34 AM WASTEWATER ANALYST LAB ANALYST): Patient is compliant with the CPAP machine and gets symptomatic relief. Assessment & Plan (07/08/2019 8:42 AM WASTEWATER ANALYST LAB ANALYST): Patient is compliant with the CPAP machine [...] legs Assessment & Plan (06/15/2023 10:47 AM WASTEWATER ANALYST LAB ANALYST): Improved after addition of doxycycline to her Bactrim. Call back if symptoms worsen after doxycycline runs out Assessment & Plan (06/08/2023 5:25 PM WASTEWATER ANALYST LAB ANALYST): Seems like cellulitis slow to improve either [...] yearly. Colonoscopy due March 2027. Follow-up the pharmacology professor for breast exam pelvic exam as they direct. Will see her back in about 6 months sooner if needed. Assessment & Plan (08/02/2022 12:17 PM WASTEWATER ANALYST LAB ANALYST): Flu shot each May. Tetanus booster every 10 years. Pneumovax completed. COVID booster recommended. Mammogram yearly. Colonoscopy due March 2027. Follow-up the pharmacology professor for breast exam pelvic exam as they direct. Will see her back in 6 months with lab sooner if needed. Assessment & Plan (07/17/2021 2:08 PM WASTEWATER ANALYST LAB ANALYST): Flu shot each May. Tetanus booster every 10 years. Pneumovax completed. COVID vaccine completed. Mammogram yearly. Colonoscopy ordered and she should verify coverage before proceeding. Follow-up the pharmacology professor for breast exam and pelvic exam as they direct. We will see her back in 1 year for physical and fasting lab sooner if needed. Assessment & Plan (07/13/2020 8:35 AM WASTEWATER ANALYST LAB ANALYST): Flu shot each May. Tetanus booster every 10 years. She has had a Pneumovax. Mammogram was abnormal back in August and she has delayed follow-up studies until now and she is urged to get her diagnostic and ultrasound studies done at her earliest convenience and she is aware of the risks posed her health with delay in proceeding. Follow-up the pharmacology professor for breast exam and pelvic exam as they direct. We will see her back in 1 year for wellness visit fasting lab sooner if needed. Assessment & Plan (07/08/2019 8:43 AM WASTEWATER ANALYST LAB ANALYST): Flu shot each May. Tetanus booster every 10 years. Mammogram ordered. Will see her back in 1 year for physical and fasting lab sooner if needed. Assessment & Plan (07/05/2018 9:24 AM WASTEWATER ANALYST LAB ANALYST): Tetanus booster today. Flu shot each May. Mammogram ordered. Patient should follow-up the pharmacology professor breast exam and pelvic exam. We will see her back in 1 year for wellness visit fasting lab sooner if needed. Assessment & Plan (08/26/2017 4:27 PM WASTEWATER ANALYST LAB ANALYST): Flu shot each May. Tetanus booster every 10 years. See her pharmacology professor for breast exam mammogram and Pap smear is a direct. We will see her back in 1 year with fasting lab sooner if needed. Morbid obesity 08/26/2017 07/05/2018 Assessment & Plan (08/26/2017 4:28 PM WASTEWATER ANALYST LAB ANALYST): Patient is encouraged to lose weight with [...] Type Department Care Team Description 09/09/2024 Documentation [facility] Services at [address] [address] Tiffanie Cantu, PT PT Discharge 09/02/2024 Telephone [facility] Services at [address] [address] Tiffanie Cantu, PT Cancel 08/30/2024 Telephone [facility] Services at [address] [address] Ele Vazquez, PT Cancel 08/24/2024 Telephone [facility] [address] [phone] Yuki Mccain RN 08/23/2024 11:00 AM WASTEWATER ANALYST LAB ANALYST Office Visit [facility] Primary Care - [address] [phone] Lynn Rodriguez MD Mild intermittent extrinsic asthma without complication (Primary Dx); Impaired mobility; Acute hypoxic respiratory failure (HCC); History of respiratory syncytial virus (RSV) vaccination; Class 3 severe obesity due to excess calories with serious comorbidity and body mass index (BMI) of 45.0 to 49.9 in adult (HCC) 08/19/2024 Telephone [facility] Home Care Services [address] [place] [id number] Sarah Baird, JOSHUA Medical Question/Miscellane ous 08/19/2024 Telephone [facility] [address] [address] Sarah Baird, RN 08/18/2024 Telephone [facility] Home Care Services [address] [place] [address] Sarah Baird, RN 08/17/2024 Telephone [facility] Home Care Services [address] [place] [id number] Sarah Baird, RN 08/09/2024 Orders Only [facility] Endocrinology Metabolism and Lipid [address] [facility] [address] [place] [address] [place] [phone] Stephanie Sandoval RMA Uncontrolled type 2 diabetes mellitus with hyperglycemia (HCC) 08/09/2024 Telephone [facility] Services at [address] [address] Ele Vazquez, PT Cancel 08/05/2024 Telephone [facility] at [address] [address] Ele Vazquez, PT Cancel (excused) 08/04/2024 Telephone [facility] Services at [address] [phone] Tiffanie Cantu, PT Appointment 07/29/2024 12:00 PM WASTEWATER ANALYST LAB ANALYST Therapy [facility] at [address] [id number] Tiffanie Cantu, PT Impaired mobility (Primary Dx); Lymphedema 07/29/2024 Plan of Care Documentation [facility] Services at [address] [id number] 07/13/2024 9:00 AM WASTEWATER ANALYST LAB ANALYST Office Visit [facility] Endocrinology Metabolism and Lipid [address] [facility] [address] [place] [address] [place] [phone] Shirley Teixeira PA Uncontrolled type 2 diabetes mellitus with hyperglycemia (HCC) (Primary Dx); Morbid obesity with BMI of 50.0-59.9, adult (HCC); Benign hypertension; Mixed hyperlipidemia; Vitamin D deficiency; terminal block assembler 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 user; MCC (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) from Last 3 Months Immunizations Immunization Administration Dates Next Due Influenza, Quadrivalent, Rosita l Culture-based MDCK, Preservative Free, Antibiotic Free, Intramuscular 05/13/2023,05/23/2022 Influenza, Quadrivalent, Spl it, Intramuscular 05/03/2015 Influenza, Quadrivalent, Spl it, Preservative Free, Intramuscular 05/16/2020,05/07/2018 Influenza, Unspecified 05/16/2021,2020,04/22/2021(Defer red: Patient Refused),03/19/2021(Deferred: Patient Refused),05/12/2019,05/07/2017 AngioScore (J&J) SARS-CoV-2 Vaccination 10/05/2020 Pneumococcal Conjugate Pcv20 04/06/2024 Pneumococcal Polysaccharide PPV23 08/03/2010, Td, adsorbed 07/05/2018 Tdap 10/04/2007 Surgical History Surgery Date Site/Laterality Comments OTHER SURGICAL HISTORY Sleep apnea: CPAP OTHER SURGICAL HISTORY Internal derangement of the knee: knee arthroscopy MYOMECTOMY Myomectomy COLONOSCOPY 04/02/2022 KNEE ARTHROSCOPY W/ LATERAL RELEASE ABDOMINAL SURGERY Medical History Medical History Date Comments Hypertension Hypertension Hx Other Medical Hyperlipidemia; Comments: [facility] 04/11/2014 - Hx Other Medical Diabetes; Comme nts: [facility] 04/11/2014 - Hx Other Medical Seasonal allerg ies; Comments: [facility] 04/11/2014 - Hx Other Medical Sleep apnea; Co mments: [facility] 04/11/2014 - Hx Other Medical 2012 Internal derang ement of the knee; Comments: [facility] 04/11/2014 - Hx Other Medical Depression; Com ments: [facility] 04/11/2014 - Hx Other Medical D and C Hx Other Medical D/C 02/2016 Hx Other Medical R knee meniscal repair 05/2014 Hx Other Medical Large uterine f ibroid resected 04/2015, uterine darby Hx Other Medical IVF transfer 2015 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 Sheikh Morbid obesity (HCC) [...] on file Legal Sex Female 11:54 PM WASTEWATER ANALYST LAB ANALYST Gender Identity Female 09/19/2020 8:37 AM WASTEWATER ANALYST LAB ANALYST Sexual Orientation Straight 09/19/2020 8: 37 AM WASTEWATER ANALYST LAB ANALYST Obstetrics History Para Term AB IAB SAB Ectopic Multiple Livin g Live Births 1 1 1 Date Outcome GA Total Labor Labor/2nd/3rd Weight Sex Type Anes PTL Guillermina A1 A5 Name Clin Term Last Filed Vital Signs Vital Sign Reading Time Taken Comments Blood Pressure 124/88 08/23/2024 10:35 AM WASTEWATER ANALYST LAB ANALYST Pulse 91 08/23/2024 10:35 AM WASTEWATER ANALYST LAB ANALYST Temperature 36.5 C (97.7 F) 08/23/2024 10:35 AM WASTEWATER ANALYST LAB ANALYST Respiratory Rate 24 08/23/2024 10:35 AM WASTEWATER ANALYST LAB ANALYST Oxygen Saturation 98% 08/23/2024 10:35 AM WASTEWATER ANALYST LAB ANALYST Inhaled Oxygen Concentration - - Weight 138 kg (304 lb 3.8 oz) 08/23/2024 10:35 A M WASTEWATER ANALYST LAB ANALYST Height 167.6 cm (5' 6 ) 08/23/2024 10:35 AM WASTEWATER ANALYST LAB ANALYST Body Mass Index 49.1 08/23/2024 10:35 AM WASTEWATER ANALYST LAB ANALYST Plan of Treatment Health Maintenance Due Date [...] HEMOGLOBIN A1C Routine 07/13/2024 9 :08 AM WASTEWATER ANALYST LAB ANALYST Uncontrolled type 2 diabetes mellitus with hyperglycemia (HCC) POCT GLUCOSE 01336 Routine 07/13/2024 9: 08 AM WASTEWATER ANALYST LAB ANALYST Uncontrolled type 2 diabetes mellitus with hyperglycemia [...] Results * POCT glucose (07/13/2024 9:08 AM WASTEWATER ANALYST LAB ANALYST) Glucose Blood, POC 161 mg/dL Blood 07/13/2024 9:08 AM WASTEWATER ANALYST LAB ANALYST Shirley CHUN POINT OF CARE TEST ORDERA BLES Final Result * POCT hemoglobin A1c (07/13/2024 9:08 AM WASTEWATER ANALYST LAB ANALYST) Hemoglobin A1C, POC 11.7 4.0 - 5.6 % Blood 07/13/2024 9:08 AM WASTEWATER ANALYST LAB ANALYST Shirley CHUN POINT OF CARE TEST ORDERA BLES Final Result * (ABNORMAL) Comprehensive metabolic panel (12/29/2023 1:40 PM CDT) Glucose 121(H) 65 - 99 mg/dL Aleshia iRatesPaula Sheehan Comment: Fasting reference interval For someone without known diabetes, a glucose value between 100 and 125 mg/dL is consistent with prediabetes and should be confirmed with a follow-up test. BUN 15 7 - 25 mg/dL Aleshia iRatesPaula Sheehan Creatinine 0.69 0.50 - 0.99 mg/dL Aleshia [employer]Paula Sheehan eGFR 108 > OR = 60 mL/min/1.7 3m2 Skinny MomPaula ian Sheehan BUN/creat ratio SEE NOTE: 6 - 22 (calc) Aleshia iRatesPaula Sheehan Comment: Not Reported: BUN and Creatinine are within reference range. Sodium 138 135 - 146 mmol/L Aleshia iRatesPaula Sheehan Potassium, pl 4.1 3.5 - 5.3 mmol/L Alesh[facility] [employer]-S ian Sheehan Chloride 97(L) 98 - 110 mmol/L [facility]lesh[facility] [employer]Paula Sheehan CO2 30 20 - 32 mmol/L Alesh[facility] [employer] ian Sheehan Calcium 9.7 8.6 - 10.2 mg/dL Alesh[facility] [employer]Paula Sheehan Protein, sr 7.0 6.1 - 8.1 g/dL Alesh[facility] [employer]Paula Sheehan Albumin 4.3 3.6 - 5.1 g/dL Alesh[facility] [employer] ian Sheehan GLOBULIN 2.7 1.9 - 3.7 g/dL (calc) Alesh[facility] [employer]Paula Sheehan Alb/glob ratio 1.6 1.0 - 2.5 (calc) [facility] [employer]Paula Sheehan Bilirubin, total 0.6 0.2 - 1.2 mg/dL [facility] [employer]Paula Sheehan Alk phos 46 31 - 125 U/L Aleshia iRatesS ian Sheehan AST 13 10 - 35 U/L Aleshia iRatesPaula Sheehan ALT (SGPT) 32(H) 6 - 29 U/L Aleshia iRatesPaula Sheehan Blood 12/29/2023 1:40 PM CDT 12/29/2023 1:42 PM CDT Narrative [facility] - 12/30/2023 3:37 PM CDT FASTING:YES FASTING: YES Kishor Saleh MD LAB BLOOD ORDERABLES Final R esult Performing Organization Address City/[facility]/ZIP Co de Phone Number [facility] [address] [place] [address] * Albumin Creatinine Ratio, Urine (12/29/2023 12:26 PM CDT) Albumin Ur 14.1 mg/L Comment: Interpretive Data No reference range established. Current interpretive data was last revised 2018. Creatinine Ur 117.0 mg/dL [facility] Comment: Interpretive Data No reference range established. Current interpretive data was last revised 2018. Albumin Creatinine Ratio, Ur 12 1 - 29 mg/g [facility] Urine 12/29/2023 12:2 6 PM CDT 12/29/2023 1:04 PM CDT Shirley CHUN LAB URINE ORDERABLES Flora l Result Performing Organization Address [facility] Co de Phone Number [facility] Department [place] [address] * (ABNORMAL) Lipid panel (12/29/2023 12:26 PM [...] revised on 2018. Triglycerides 265(H) <=149 mg/dL [facility] Comment: Interpretive Data Ages < [...] revised on 2018. HDL 87 >=40 mg/dL [facility] Comment: Interpretive Data Ages < [...] on 2018. LDL, calculated 68 <=129 mg/dL [facility] Comment: Interpretive Data Ages < [...] revised on 2018. Non-HDL Cholesterol 121 mg/dL [facility] Comment: Interpretive Data Ages < [...] revised on 2018. Chol/HDL ratio 2 [facility] Blood 12/29/2023 12:2 6 PM CDT 12/29/2023 1:04 PM CDT us Shirley CHUN LAB BLOOD ORDERABLES Flora dowd Result [facility] Department [place] [address] * Screening Mammogram Bilateral W Vincenzo (12/29/2023 [...] studies performed at [facility] on 01/01/2022 and 02/25/2023, and at [facility]. [place], [place] on 09/12/2020. There are scattered areas [...] studies performed at [facility] on 01/01/2022 and 02/25/2023, and at [facility]. [place], [place] on 09/12/2020. There are scattered areas of fibroglandular density. There is no suspicious abnormality in either breast. Impression: There is no mammographic evidence of malignancy. Annual screening mammography is recommended. OVERALL FINAL ASSESSMENT: BI-RADS CATEGORY 1: Negative. us Kishor Saleh MD IMG MAMMO PROCEDURES Final R esult * Diabetic Eye Exam (11/10/2022) us Generic External Data Provider [facility] MAINTENANC E Final Result * COLONOSCOPY (04/02/2022 9:28 AM CDT) Anatomical Region Laterality Modality Other Narrative Procedure Note Ad Camacho MD - 04/02/2022 9:28 AM CDT [facility] Patient Name: Camila Huitron Procedure Date: 04/02/2022 9:28 AM Date of : 1975 Admit Type: Outpatient Age: 46 Gender: Female Attending MD: Ad Camacho M.D. Room: [facility] ENDOSCOPY ROOM 2 Note Status: Finalized [...] scope was passed under direct vision. TheColonoscope [id number] was introduced through the anus and advanced [...] 9:28 AM Procedure Code(s): --- Professional --- 10860, Colonoscopy, flexible; with biopsy, single or multiple Diagnosis Code(s): --- Professional --- Z12.11, Encounter for screening for malignant neoplasm of colon D12.3, Benign neoplasm of transverse colon (hepatic flexure orsplenic flexure) D12.4, Benign neoplasm of descending colon D12.8, Benign neoplasm of rectum CPT copyright 2020 [employer]. All rights reserved. The codes documented in this report are preliminary and upon med care manager reviewmay be revised to meet current compliance requirements. Recognized by the [place] [employer] for promoting quality in endoscopy Ad Camacho MD ENDOSCOPY PROCEDURES Final Resul t * Diabetic Foot Exam (03/26/2021) Impressions Art Staley MA - 03/26/2021 In care everywhere Historical Provider HEALTH MAINTENANCE Final Result from Last 3 Months or Most Recently Relevant to Health Maintenance Insurance [employer] [facility] Advance Directives For more information, please contact: [phone] * Full Code (Latest Code Status on File) Date Activated Date Inactivated Comments 04/02/2022 9:27 AM 04/02/2022 4:47 PM * Full Code Date Activated Date Inactivated Comments 04/02/2022 9:27 AM 04/02/2022 9:27 AM Care Teams Infection Control Specialist Relationship Specialty [place] [address] [facility] [address] [place] [address] PCP - General Internal Medicine 04/06/24 Ann Serrano MD Referring Physician Endocrinology Diabetes & Metabolism 06/08/20
--- OUTSIDE RECORDS SUMMARY | 2024-09-23 00:13 | XMS_ITS | Encounter Summary ---
Author Organization [facility] Address [address] [place] [address] Care Team Providers Care Job Service Consultant Name Role Phone Tiffany Cox MD Primary Care Provider Unavailable Kishor Saleh MD Primary Care Provider Encounter Details Date Type Department Care Team (Late st Contact Info) Description 07/03/2023 Lab Requisition [facility] - DermPath Lab [address] [facility] [place] [address] [place] [id number] [address] Social History Tobacco Use Types [...] Diagnosis Comments DERMATOPATHOLOGY Routine 07/01/2023 3:33 AM GUNITE NOZZLE OPERATOR documented in this encounter Results * DERMATOPATHOLOGY (07/01/2023 3:33 AM GUNITE NOZZLE OPERATOR) Case Report Dermatopathology Report Case: [id number] Authorizing Provider: Kendrick Christopher MD Collected: 07/01/2023 03:33 AM Ordering Location: [facility] DermPath Lab Received: 07/03/2023 12:12 PM Pathologist: Bella Schwab MD Specimen: Skin, right inferior knee 3:45 PM [facility] DERMATOPATHOLOGY LABORATORY Final Diagnosis Specimen A. SKIN, right inferior knee: STASIS DERMATITIS (L30.8) DERMAL FIBROSIS (L90.5) (see microscopic description) 3 3:45 PM [facility] DERMATOPATHOLOGY [facility]ORAT[facility] Clinical History Rash; R/O Leukocytoclastic Vasculitis, Livedo Reticularis 3 3:45 PM [facility] DERMATOPATHOLOGY [facility]OR[facility] Gross Description Specimen A: Received is one formalin filled container labeled with the patient's name and designated right inferior knee. The specimen consists of a punch biopsy measuring 6x5x6 mm. Jar 0. 3 3:45 PM [facility] DERMATOPATHOLOGY [facility]OR[facility] Microscopic Description Specimen A. SKIN, [...] were obtained and reviewed. 3 3:45 PM [facility] DERMATOPATHOLOGY [facility]ORATORY Disclaimer An external and internal positive and negative controls are appropriate for the histochemical, immunohistochemical and immunofluorescence stain(s) in this case (if any), except where stated explicitly. The performance characteristics of the stain(s) cited in this report were developed and its performance characteristic determined by the Dermatopathology Laboratory at [facility], directed by Dr. Arnlo Perea. These tests need not be, and therefore are not, approved by the [place] Food and Drug Administration. The tests are used for clinical purposes. Billing Codes Specimen Charges Stain Charges 48356 1 78162 1 3 3:45 PM [facility] DERMATOPATHOLOGY [facility] Embedded Images 3 3:45 PM [facility] DERMATOPATHOLOGY [facility]OR[facility] Pathology/Cytolo gy TISSUE SPECIMEN FROM SKIN / Unknown 07/01/2023 3:33 AM GUNITE NOZZLE OPERATOR 07/03/2023 12:12 PM GUNITE NOZZLE OPERATOR Kendrick Christopher MD LAB - PATHOLOGY/CY TOLOGY ORDERABLES DERMATOPATHOLOGY LABORATORY [facility] - Department of Dermatology [facility] Specialized Medicine [address] [facility], [address] [phone] documented in this encounter Visit Diagnoses Not on filedocumented in this encounter Additional Health Concerns Infection Onset Date Last Indicated Resolved Time COVID-19 Under Investigation 08/13/2024 08/13/2024 08/13/2024 11:30 PM GUNITE NOZZLE OPERATOR documented as of this encounter Care Teams Job Service Consultant Relationship Specialty Start Date End Date Tiffany Cox MD PCP - General Internal Medicine 05/16/13 07/30/23 Kishor Saleh MD [address] [facility] [address] [address] PCP - General Internal Medicine 07/31/23 documented as of this encounter
--- OUTSIDE RECORDS SUMMARY | 2024-09-23 00:13 | XMS_ITS | Encounter Summary ---
Author Organization [facility] Address [address] [facility] [place] [address] Care Team Providers Care Assistant Pressman Name Role Phone Tiffany Cox MD Primary Care Provider Unavailable Kishor Saleh MD Primary Care Provider Encounter Details Date Type Department Care Team (Late st Contact Info) Description 07/03/2023 Lab Requisition [facility] - DermPath Lab [address] [place] [phone] [place] [address] [place] [address] [place] [id number] Social History Tobacco Use Types Packs/Day [...] Under Investigation 08/13/2024 08/13/2024 08/13/2024 11:30 PM 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
--- OUTSIDE RECORDS SUMMARY | 2024-09-23 00:13 | XMS_ITS | Encounter Summary ---
Author Organization [facility] Address [address] [place] [address] Care Team Providers Care Clinical Science Liaison Name Role Phone Tiffany Cox MD Primary Care Provider Unavailable Kishor Saleh MD Primary Care Provider Encounter Details Date Type Department Care Team (Late st Contact Info) Description 07/03/2023 Lab Requisition [facility] - DermPath Lab [address] [place] [phone] [place] [address] [facility] [address] [place] [address] [place] [address] Social History Tobacco Use Types Packs/Day [...] Under Investigation 08/13/2024 08/13/2024 08/13/2024 11:30 PM 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
--- OUTSIDE RECORDS SUMMARY | 2024-09-23 00:13 | XMS_ITS | Patient Health Summary ---
Author Organization [facility] Address [address] [facility] [place] [address] Care Team Providers Care Train Director Name Role Phone Kishor Saleh MD Primary Care Provider + [phone] [facility] from [facility],non-owned Affiliates and Associated Physician Practices is amultiple site organization consisting of ambulatory clinics and hospital sitesin [place], [place], [place] and [place]. This disclosure is being madepursuant to the Care Everywhere program and may not contain all information available regarding this patient. Last updated 18.[facility] Allergies * Amlodipine Base(Nausea and/or Vomiting) * [...] fluticasone propionate (Flonase) 50 MCG/ACT nasal spray [place] 2 (two) sprays into each nostril once [...] * vitamin D, ergocalciferol, (Drisdol) 1.25 MG (88200 UT) capsule Take 1 (one) capsule by [...] any time in the past 12 m [facility], were you homeless or living in a [facility] (including now)? No 08/15/2024 Sex and Gender Information Value Date Recorded Sex Assigned at Not on file Gender Identity Not on file Sexual Orientation Not on file Last Filed Vital Signs Vital Sign Reading Time Taken Comments Blood Pressure 154/92 08/18/2024 12:25 PM SPECIALTY SALES REPRESENTATIVE Pulse 102 08/18/2024 12:25 PM SPECIALTY SALES REPRESENTATIVE Temperature 36.7 C (98.1 F) 08/18/2024 12:25 PM SPECIALTY SALES REPRESENTATIVE Respiratory Rate 23 08/18/2024 12:2 5 PM SPECIALTY SALES REPRESENTATIVE Oxygen Saturation 90% 08/18/2024 12: 25 PM SPECIALTY SALES REPRESENTATIVE Inhaled Oxygen Concentration 21% 08/18/2024 2 :00 PM SPECIALTY SALES REPRESENTATIVE Weight 132.6 kg (292 lb 4.8 oz) 08/18/2024 4:00 AM SPECIALTY SALES REPRESENTATIVE Height 167.6 cm (5' 6 ) 08/13/2024 5:14 PM SPECIALTY SALES REPRESENTATIVE Body Mass Index 47.18 08/13/2024 5:14 PM SPECIALTY SALES REPRESENTATIVE Procedures * CARDIAC RHYTHM STRIP ORDER(Performed 08/23/2024) [...] CARDIAC RHYTHM STRIP ORDER (08/23/2024 2:41 AM SPECIALTY SALES REPRESENTATIVE) Narrative 08/23/2024 2:41 AM SPECIALTY SALES REPRESENTATIVE Ordered by an unspecified provider. Scanned Document CARDIAC SERVICES ORD ERABLES * GLUCOSE - POINT OF CARE (08/18/2024 7:46 AM SPECIALTY SALES REPRESENTATIVE) Only the most recent of28 resultswithin the time period is included. [facility] Glucose WB/POC 81 70 - 99 mg/dL 08/18/2024 7:51 AM SPECIALTY SALES REPRESENTATIVE [facility] Specimen Type Cap Fingerstick 2024 7:51 AM SPECIALTY SALES REPRESENTATIVE [facility] Blood BLOOD SPECIMEN / Unknown 08/18/2024 7:46 AM SPECIALTY SALES REPRESENTATIVE 08/18/2024 7:51 AM SPECIALTY SALES REPRESENTATIVE Young Mcwilliams MD LAB - POINT OF CARE ORDERABLES [facility] [address] [place] [address] * (ABNORMAL) CBC W/O DIFFERENTIAL (08/17/2024 4:16 AM SPECIALTY SALES REPRESENTATIVE) Only the most recent of4 resultswithin the time period is included. Pathologist [facility] WBC 16.3(H) 4.0 - 10.7 x10E9/L 08/17/2024 4:44 AM SPECIALTY SALES REPRESENTATIVE [facility] RBC Count 3.51(L) 3.90 - 5.20 x10E12/L 08/17/2024 4:44 AM SPECIALTY SALES REPRESENTATIVE [facility] Hemoglobin 10.3(L) 11.9 - 15.8 g/dL 08/17/2024 4:44 AM [facility] Hematocrit 32.6(L) 34.8 - 46.1 % 08/17/2024 4:44 AM [facility] MCV 92.9 80.0 - 98.0 fL 08/17/2024 4:44 AM [facility] MCH 29.3 26.7 - 33.6 pg 08/17/2024 4:44 AM [facility] MCHC 31.6(L) 31.7 - 36.3 g/dL 08/17/2024 4:44 AM [facility] RDW-CV 15.8(H) 11.3 - 14.8 % 08/17/2024 4:44 AM [facility] Platelet Count 478(H) 150 - 420 x10E9/L 08/17/2024 4:44 AM [facility] MPV 10.4 7.8 - 11.4 fL 08/17/2024 4:44 AM [facility] NRBC 0.8(H) <=0.0 /100 WBC 08/17/2024 4:44 AM [facility] Blood BLOOD SPECIMEN / Unknown Venipuncture / Unknown 08/17/2024 4:16 AM SPECIALTY SALES REPRESENTATIVE 08/17/2024 4:30 AM [facility] Alexus Ramirez MD LAB - HEMATOLOGY ORD ERABLES [facility] [address] [place] [address] * (ABNORMAL) BASIC METABOLIC PANEL (CALCIUM TOTAL) (08/17/2024 4:16 AM [facility]) Only the most recent of4 resultswithin the time period is included. Glucose 139(H) 70 - 99 mg/dL 08/17/2024 4:53 AM [facility] Sodium 140 136 - 145 mmol/L 08/17/2024 4:53 AM [facility] Potassium 3.5 3.5 - 5.1 mmol/L 08/17/2024 4:53 AM [facility] Chloride 108(H) 98 - 107 mmol/L 08/17/2024 4:53 AM [facility] CO2 24 22 - 29 mmol/L 08/17/2024 4:53 AM [facility] Calcium 8.9 8.4 - 10.4 mg/dL 08/17/2024 4:53 AM [facility] Anion Gap 8 6 - 16 mmol/L 08/17/2024 4:53 AM [facility] BUN 15 5.3 - 18.7 mg/dL 08/17/2024 4:53 AM [facility] Creatinine 0.65 0.57 - 1.11 mg/dL 08/17/2024 4:53 AM [facility] eGFR by CKD-EPI >90 >=90 mL/min/1.7 3 m2 08/17/2024 4:53 AM [facility] Blood BLOOD SPECIMEN / Unknown Venipuncture / Unknown 08/17/2024 4:16 AM SPECIALTY SALES REPRESENTATIVE 08/17/2024 4:30 AM SPECIALTY SALES REPRESENTATIVE Alexus Ramirez MD LAB - CHEMISTRY MICHAEL MONTGOMERY Performing Organization Address [facility] de Phone Number [facility] [address] [place] [address] * (ABNORMAL) VANCOMYCIN LEVEL TROUGH (08/16/2024 6:35 PM SPECIALTY SALES REPRESENTATIVE) [facility] Vancomycin Trough 6.1(L) 10.0 - 20.0 ug/mL 08/16/2024 7:22 PM SPECIALTY SALES REPRESENTATIVE [facility] Blood BLOOD SPECIMEN / Unknown Venipuncture / Unknown 08/16/2024 6:35 PM SPECIALTY SALES REPRESENTATIVE 08/16/2024 7:02 PM SPECIALTY SALES REPRESENTATIVE Anatoliy Wyman MD LAB - CHEMISTRY MICHAEL MONTGOMERY Performing Organization Address [facility] de Phone Number [facility] [address] [place] [address] * CULTURE BLOOD (08/15/2024 8:54 AM SPECIALTY SALES REPRESENTATIVE) Only the most recent of4 resultswithin the time period is included. [facility] Culture No growth day 5 LORENZO 08/20/2024 1:31 PM SPECIALTY SALES REPRESENTATIVE [facility] Blood PERIPHERAL BLOOD / Unknown Venipuncture / Unknown 08/15/2024 8:54 AM SPECIALTY SALES REPRESENTATIVE 08/15/2024 9:13 AM SPECIALTY SALES REPRESENTATIVE Amadeo Milner MD LAB - MICROBIOLOGY O RDERABLES [facility] [address] [place] [address], [facility] [phone] * (ABNORMAL) HEMOGLOBIN A1C (08/14/2024 3:27 AM SPECIALTY SALES REPRESENTATIVE) Hemoglobin A1c 10.1(H) <5.7 % 08/14/2024 3:48 AM SPECIALTY SALES REPRESENTATIVE [facility] Estimated Average Glucose 243 mg/dL 08/14/2024 3:48 AM SPECIALTY SALES REPRESENTATIVE [facility] Blood BLOOD SPECIMEN / Unknown Venipuncture / Unknown 08/14/2024 3:27 AM SPECIALTY SALES REPRESENTATIVE 08/14/2024 3:37 AM SPECIALTY SALES REPRESENTATIVE [facility] - 08/14/2024 3:48 AM SPECIALTY SALES REPRESENTATIVE HbA1c Interpretation: Normal: < 5.7% Pre-diabetes: 5.7-6.4% [...] Ramirez MD LAB - CHEMISTRY MICHAEL MONTGOMERY [facility] [address] [place] [address] * STREP PNEUMONIAE ANTIGEN URINE (08/13/2024 5:17 PM SPECIALTY SALES REPRESENTATIVE) Streptococcus pneumoniae Antigen Urine Negative Negative 08/14/2024 8:17 AM SPECIALTY SALES REPRESENTATIVE [facility] Urine URINE / Unknown Collection / Unknown 08/13/2024 5:17 PM SPECIALTY SALES REPRESENTATIVE 08/13/2024 5:22 PM SPECIALTY SALES REPRESENTATIVE Narrative [facility] - 08/14/2024 8:17 AM SPECIALTY SALES REPRESENTATIVE Patients who have received the Streptococcus pneumoniae [...] - MICROBIOLOGY Blayne BABCOCK Performing Organization Address [facility] Co de Phone Number [facility] [address] [place] [address], [facility] [phone] * LEGIONELLA ANTIGEN URINE (08/13/2024 5:17 PM SPECIALTY SALES REPRESENTATIVE) Pathologist [facility] Legionella Antigen Urine Negative Negative 08/14/2024 8:21 AM SPECIALTY SALES REPRESENTATIVE [facility] Urine URINE / Unknown Collection / Unknown 08/13/2024 5:17 PM SPECIALTY SALES REPRESENTATIVE 08/13/2024 5:22 PM SPECIALTY SALES REPRESENTATIVE [facility] - 08/14/2024 8:21 AM SPECIALTY SALES REPRESENTATIVE This assay detects Legionella pneumophila serogroup one (1) antigen. A negative test result does not rule out the possibility of Legionella infection due to other serogroups or species of Legionella. A positive result may indicate a recent or remote infection with serogroup 1. Alexus Ramirez MD LAB - MICROBIOLOGY O [place] Performing Organization Address City/[facility]/ZIP Co de Phone Number [facility] [address] [place] [address], [facility] [phone] * (ABNORMAL) RESPIRATORY PANEL WITH SARS-COV-2 BY PCR (STL) (08/13/2024 5:09 PM SPECIALTY SALES REPRESENTATIVE) Adenovirus PCR Not detected Not detected 08/13/2024 11:30 PM SPECIALTY SALES REPRESENTATIVE [facility] Coronavirus 229E PCR Not detected Not detected 08/13/2024 11:30 PM SPECIALTY SALES REPRESENTATIVE [facility] Coronavirus HKU1 PCR Not detected Not detected 08/13/2024 11:30 PM SPECIALTY SALES REPRESENTATIVE [facility] Coronavirus NL63 PCR Not detected Not detected 08/13/2024 11:30 PM SPECIALTY SALES REPRESENTATIVE [facility] Coronavirus OC43 PCR Not detected Not detected 08/13/2024 11:30 PM SPECIALTY SALES REPRESENTATIVE [facility] COVID-19 PCR Not detected Not detected 08/13/2024 11:30 PM SPECIALTY SALES REPRESENTATIVE [facility] Human Metapneumovirus PCR Not detected Not detected 08/13/2024 11:30 PM SPECIALTY SALES REPRESENTATIVE [facility] Human Rhinovirus/Enterov irus PCR Not detected Not detected 08/13/2024 11:30 PM SPECIALTY SALES REPRESENTATIVE [facility] Influenza A PCR Not detected Not detected 08/13/2024 11:30 PM SPECIALTY SALES REPRESENTATIVE [facility] Influenza B PCR Not detected Not detected 08/13/2024 11:30 PM SPECIALTY SALES REPRESENTATIVE [facility] Parainfluenza Virus 1 PCR Not detected Not detected 08/13/2024 11:30 PM SPECIALTY SALES REPRESENTATIVE [facility] Parainfluenza Virus 2 PCR Not detected Not detected 08/13/2024 11:30 PM SPECIALTY SALES REPRESENTATIVE [facility] Parainfluenza Virus 3 PCR Not detected Not detected 08/13/2024 11:30 PM SPECIALTY SALES REPRESENTATIVE [facility] Parainfluenza Virus 4 PCR Not detected Not detected 08/13/2024 11:30 PM SPECIALTY SALES REPRESENTATIVE [facility] Respiratory Syncytial Virus PCR Detected(A) Not detected 08/13/2024 11:30 PM SPECIALTY SALES REPRESENTATIVE [facility] Bordetella parapertussis PCR Not detected Not detected 08/13/2024 11:30 PM SPECIALTY SALES REPRESENTATIVE [facility] Bordetella pertussis PCR Not detected Not detected 08/13/2024 11:30 PM SPECIALTY SALES REPRESENTATIVE [facility] Chlamydia pneumoniae PCR Not detected Not detected 08/13/2024 11:30 PM SPECIALTY SALES REPRESENTATIVE [facility] Mycoplasma pneumoniae PCR Not detected Not detected 08/13/2024 11:30 PM SPECIALTY SALES REPRESENTATIVE [facility] Microbiology SPECIMEN FROM NASOPHARYNGEAL STRUCTURE / Unknown Collection / Unknown 08/13/2024 5:09 PM SPECIALTY SALES REPRESENTATIVE 08/13/2024 5:20 PM SPECIALTY SALES REPRESENTATIVE Narrative [facility] - 08/13/2024 11:30 PM SPECIALTY SALES REPRESENTATIVE Contact and Droplet Precautions Required. This nucleic amplification assay has received FDA authorization via the [place] Pathway. Alexus Ramirez MD LAB - MICROBIOLOGY O [place] Performing Organization Address [facility]/ZIP Co de Phone Number [facility] [address] [place] [address], [facility] [phone] * CULTURE MRSA (08/13/2024 5:09 PM SPECIALTY SALES REPRESENTATIVE) Culture Negative for methicillin-resist ant Staphylococcus aureus (MRSA) LORENZO 08/15/2024 8:16 AM SPECIALTY SALES REPRESENTATIVE [facility] Microbiology SPECIMEN FROM NASAL FOSSAE / Unknown Collection / Unknown 08/13/2024 5:09 PM SPECIALTY SALES REPRESENTATIVE 08/13/2024 5:21 PM SPECIALTY SALES REPRESENTATIVE Alexus Ramirez MD LAB - MICROBIOLOGY O [place] Performing Organization Address [facility] de Phone Number [facility] [address] [place] [address], [facility] [phone] * (ABNORMAL) BCID PANEL (08/13/2024 5:08 PM SPECIALTY SALES REPRESENTATIVE) Staphylococcus epidermidis Detected (A) Not detected 08/15/2024 2:03 AM SPECIALTY SALES REPRESENTATIVE [facility] MECA/C (Methicillin-Resi stance Gene) Detected (A) Not detected 08/15/2024 2:03 AM SPECIALTY SALES REPRESENTATIVE [facility] Comment:Results indicate met hicillin-resistant Staphylococcus epidermidis. Methicillin-resistance detected. Blood PERIPHERAL BLOOD / Unknown Venipuncture / Unknown 08/13/2024 5:08 PM SPECIALTY SALES REPRESENTATIVE 08/13/2024 5:19 PM SPECIALTY SALES REPRESENTATIVE Narrative [facility] - 08/15/2024 2:03 AM SPECIALTY SALES REPRESENTATIVE Blood Culture ID Panel performed by [employer] [...] and MREJ (methicillin-resistance - MRSA), NDM (New Ava ephvlum-ihnv-coyzrhsbu), OXA-48-like (oxacillinase beta-lactamase),Ashly/B (vancomycin-resistance), VIM (Noa Intergrom-Encoded Metallo beta-lactamase). Alexus Ramirez MD LAB - MICROBIOLOGY O RDERABLES [facility] [address] [place] [address], [facility] [phone] * PTT (08/13/2024 5:08 PM SPECIALTY SALES REPRESENTATIVE) PTT 28.4 23.0 - 38.4 sec 08/13/2024 5:43 PM SPECIALTY SALES REPRESENTATIVE [facility] Blood BLOOD SPECIMEN / Unknown Venipuncture / Unknown 08/13/2024 5:08 PM SPECIALTY SALES REPRESENTATIVE 08/13/2024 5:21 PM SPECIALTY SALES REPRESENTATIVE Narrative [facility] - 08/13/2024 5:43 PM SPECIALTY SALES REPRESENTATIVE Heparin Therapeutic Range for PTT: 69.0 - 110.0 seconds. Alexus Ramirez MD LAB - COAGULATION OR DERABLES Performing Organization Address [facility] de Phone Number [facility] [address] [place] [address] * PT-INR (08/13/2024 5:08 PM SPECIALTY SALES REPRESENTATIVE) [facility] PT 14.1 12.1 - 14.8 sec 08/13/2024 5:43 PM SPECIALTY SALES REPRESENTATIVE [facility] INR 1.1 0.9 - 1.1 08/13/2024 5:43 PM SPECIALTY SALES REPRESENTATIVE [facility] Blood BLOOD SPECIMEN / Unknown Venipuncture / Unknown 08/13/2024 5:08 PM SPECIALTY SALES REPRESENTATIVE 08/13/2024 5:21 PM SPECIALTY SALES REPRESENTATIVE Narrative [facility] - 08/13/2024 5:43 PM SPECIALTY SALES REPRESENTATIVE Conventional Warfarin Anticoagulant Therapy: INR Reference Range: 2.0-3.0 Intensive Warfarin Anticoagulant Therapy: INR Reference Range: 2.5-3.5 Alexus Ramirez MD LAB - COAGULATION OR DERABLES Performing Organization Address [facility] de Phone Number [facility] [address] [place] [phone] * (ABNORMAL) DIFFERENTIAL MANUAL (08/13/2024 5:08 PM SPECIALTY SALES REPRESENTATIVE) [facility] Neutrophil % 90(H) 41 - 74 % 08/13/2024 6:34 PM [facility] Lymphocyte % 4(L) 17 - 47 % 08/13/2024 6:34 PM [facility] Monocyte % 1(L) 3 - 11 % 08/13/2024 6:34 PM [facility] Basophil % 1 0 - 2 % 08/13/2024 6:34 PM [facility] Myelocyte % 3(H) 0% % 08/13/2024 6:34 PM SPECIALTY SALES REPRESENTATIVE [facility] Promyelocyte % 1(H) 0% % 08/13/2024 6:34 PM [facility] Neutrophil Absolute 17.91(H) 1.60 - 7.50 x10E9/L 08/13/2024 6:34 PM SPECIALTY SALES REPRESENTATIVE [facility] Lymphocyte Absolute 0.80(L) 1.00 - 4.40 x10E9/L 08/13/2024 6:34 PM SPECIALTY SALES REPRESENTATIVE [facility] Monocyte Absolute 0.20 0.15 - 1.00 x10E9/L 08/13/2024 6:34 PM [facility] Basophil Absolute 0.20(H) 0.00 - 0.13 x10E9/L 08/13/2024 6:34 PM [facility] RBC Morphology REVIEWED 08/13/2024 6:34 PM [facility] Blood BLOOD SPECIMEN / Unknown Venipuncture / Unknown 08/13/2024 5:08 PM SPECIALTY SALES REPRESENTATIVE 08/13/2024 5:21 PM SPECIALTY SALES REPRESENTATIVE Alexus Ramirez MD LAB - HEMATOLOGY ORD ERABLES [facility] [address] [place] [address] * (ABNORMAL) CBC W AUTO DIFFERENTIAL (08/13/2024 5:08 PM SPECIALTY SALES REPRESENTATIVE) WBC 19.9(H) 4.0 - 10.7 x10E9/L 08/13/2024 6:34 PM [facility] RBC Count 3.41(L) 3.90 - 5.20 x10E12/L 08/13/2024 6:34 PM [facility] Hemoglobin 10.1(L) 11.9 - 15.8 g/dL 08/13/2024 6:34 PM [facility] Hematocrit 31.0(L) 34.8 - 46.1 % 08/13/2024 6:34 PM [facility] MCV 90.9 80.0 - 98.0 fL 08/13/2024 6:34 PM [facility] MCH 29.6 26.7 - 33.6 pg 08/13/2024 6:34 PM [facility] MCHC 32.6 31.7 - 36.3 g/dL 08/13/2024 6:34 PM [facility] RDW-CV 15.2(H) 11.3 - 14.8 % 08/13/2024 6:34 PM [facility] Platelet Count 340 150 - 420 x10E9/L 08/13/2024 6:34 PM [facility] MPV 11.4 7.8 - 11.4 fL 08/13/2024 6:34 PM SPECIALTY SALES REPRESENTATIVE [facility] Blood BLOOD SPECIMEN / Unknown Venipuncture / Unknown 08/13/2024 5:08 PM SPECIALTY SALES REPRESENTATIVE 08/13/2024 5:21 PM SPECIALTY SALES REPRESENTATIVE Alexus Ramirez MD LAB - HEMATOLOGY ORD ERABLES Performing Organization Address [facility] Co de Phone Number [facility] [id number] [place] [phone] * B-TYPE NATRIURETIC PEPTIDE (08/13/2024 5:08 PM SPECIALTY SALES REPRESENTATIVE) BNP 43 <=100 pg/mL 08/13/2024 5:45 PM [facility] Blood BLOOD SPECIMEN / Unknown Venipuncture / Unknown 08/13/2024 5:08 PM SPECIALTY SALES REPRESENTATIVE 08/13/2024 5:21 PM SPECIALTY SALES REPRESENTATIVE Alexus Ramirez MD LAB - CHEMISTRY ORDE RABLES Performing Organization Address [facility] Co de Phone Number [facility] [address] [place] [address] * (ABNORMAL) COMPREHENSIVE METABOLIC PANEL (08/13/2024 5:08 PM SPECIALTY SALES REPRESENTATIVE) Glucose 396(H) 70 - 99 mg/dL 08/13/2024 5:39 PM [facility] Sodium 135(L) 136 - 145 mmol/L 08/13/2024 5:39 PM [facility] Potassium 5.0 3.5 - 5.1 mmol/L 08/13/2024 5:39 PM [facility] Chloride 99 98 - 107 mmol/L 08/13/2024 5:39 PM [facility] CO2 26 22 - 29 mmol/L 08/13/2024 5:39 PM [facility] Calcium 9.2 8.4 - 10.4 mg/dL 08/13/2024 5:39 PM [facility] Anion Gap 10 6 - 16 mmol/L 08/13/2024 5:39 PM [facility] BUN 28(H) 5.3 - 18.7 mg/dL 08/13/2024 5:39 PM SPECIALTY SALES REPRESENTATIVE [facility] Creatinine 0.89 0.57 - 1.11 mg/dL 08/13/2024 5:39 PM SPECIALTY SALES REPRESENTATIVE [facility] Alkaline Phosphatase 111 40 - 150 U/L 08/13/2024 5:39 PM SPECIALTY SALES REPRESENTATIVE [facility] ALT 40 0 - 55 U/L 08/13/2024 5:39 PM SPECIALTY SALES REPRESENTATIVE [facility] AST 15 5 - 34 U/L 08/13/2024 5:39 PM SPECIALTY SALES REPRESENTATIVE [facility] Protein Total 6.8 6.4 - 8.3 gm/dL 08/13/2024 5:39 PM SPECIALTY SALES REPRESENTATIVE [facility] Albumin 2.6(L) 3.4 - 5.0 gm/dL 08/13/2024 5:39 PM SPECIALTY SALES REPRESENTATIVE [facility] Bilirubin Total 0.2 0.2 - 1.2 mg/dL 08/13/2024 5:39 PM [facility] eGFR by CKD-EPI 80(L) >=90 mL/min/1.7 3 m2 08/13/2024 5:39 PM SPECIALTY SALES REPRESENTATIVE [facility] Blood BLOOD SPECIMEN / Unknown Venipuncture / Unknown 08/13/2024 5:08 PM SPECIALTY SALES REPRESENTATIVE 08/13/2024 5:21 PM SPECIALTY SALES REPRESENTATIVE Alexus Ramirez MD LAB - CHEMISTRY MICHAEL MONTGOMERY Performing Organization Address City/[facility]/ZIP Co de Phone Number [facility] [address] [place], [place] [id number] * PHOSPHORUS BLOOD (08/13/2024 5:08 PM SPECIALTY SALES REPRESENTATIVE) Phosphorus 3.3 2.5 - 4.5 mg/dL 08/13/2024 5:39 PM SPECIALTY SALES REPRESENTATIVE [facility] Blood BLOOD SPECIMEN / Unknown Venipuncture / Unknown 08/13/2024 5:08 PM SPECIALTY SALES REPRESENTATIVE 08/13/2024 5:21 PM SPECIALTY SALES REPRESENTATIVE Alexus Ramirez MD LAB - CHEMISTRY MICHAEL MONTGOMERY Performing Organization Address City/[facility]/ZIP Co de Phone Number [facility] [address] [place], [place] [id number] * MAGNESIUM BLOOD (08/13/2024 5:08 PM SPECIALTY SALES REPRESENTATIVE) Magnesium 2.0 1.6 - 2.6 mg/dL 08/13/2024 5:39 PM SPECIALTY SALES REPRESENTATIVE [facility] Blood BLOOD SPECIMEN / Unknown Venipuncture / Unknown 08/13/2024 5:08 PM SPECIALTY SALES REPRESENTATIVE 08/13/2024 5:21 PM SPECIALTY SALES REPRESENTATIVE Alexus Ramirez MD LAB - CHEMISTRY MICHAEL MONTGOMERY Performing Organization Address [facility] Co de Phone Number [facility] [address] [place] [address] * LIPASE BLOOD (08/13/2024 5:08 PM SPECIALTY SALES REPRESENTATIVE) Lipase 25 <60 U/L 08/13/2024 5:39 PM SPECIALTY SALES REPRESENTATIVE [facility] Blood BLOOD SPECIMEN / Unknown Venipuncture / Unknown 08/13/2024 5:08 PM SPECIALTY SALES REPRESENTATIVE 08/13/2024 5:21 PM SPECIALTY SALES REPRESENTATIVE Alexus Ramirez MD LAB - CHEMISTRY MICHAEL MONTGOMERY Performing Organization Address [facility] de Phone Number [facility] [address] [place] [id number] * LACTIC ACID BLOOD (08/13/2024 5:08 PM SPECIALTY SALES REPRESENTATIVE) Lactic Acid 1.5 <=2.0 mmol/L 08/13/2024 5:39 PM SPECIALTY SALES REPRESENTATIVE [facility] Blood BLOOD SPECIMEN / Unknown Venipuncture / Unknown 08/13/2024 5:08 PM SPECIALTY SALES REPRESENTATIVE 08/13/2024 5:21 PM SPECIALTY SALES REPRESENTATIVE Alexus Ramirez MD LAB - CHEMISTRY MICHAEL MONTGOMERY Performing Organization Address [facility] de Phone Number [facility] [address] [place] [address] [phone] * (ABNORMAL) BLOOD GASES ARTERIAL (08/13/2024 4:16 PM SPECIALTY SALES REPRESENTATIVE) pH Arterial 7.47(H) 7.35 - 7.45 pH 08/13/2024 4:34 PM SPECIALTY SALES REPRESENTATIVE [facility] RESP [facility]ERAP[facility] pO2 Arterial 99 80 - 100 mmHg 08/13/2024 4:34 PM SPECIALTY SALES REPRESENTATIVE [facility] RESP THERAPY pCO2 Arterial 39 35 - 45 mmHg 08/13/2024 4:34 PM SPECIALTY SALES REPRESENTATIVE [facility] RESP THERAPY HCO3 Arterial 28.4(H) 22.0 - 26.0 mmol/L 08/13/2024 4:34 PM SPECIALTY SALES REPRESENTATIVE [facility] RESP THERAPY BE Arterial 4.5(H) -2.0 - 2.0 mmol/L 08/13/2024 4:34 PM SPECIALTY SALES REPRESENTATIVE [facility] RESP THERAPY O2 Saturation Arterial 99 90 - 100 % 08/13/2024 4:34 PM SPECIALTY SALES REPRESENTATIVE [facility] RESP THERAPY Sample Site Right RA 08/13/2024 4:34 PM SPECIALTY SALES REPRESENTATIVE [facility] RESP THERAPY Mode APVcmv 08/13/2024 4:34 PM SPECIALTY SALES REPRESENTATIVE [facility] RESP THERAPY O2 Device VENT 08/13/2024 4:34 PM SPECIALTY SALES REPRESENTATIVE [facility] RESP THERAPY FI O2 50.0 % 08/13/2024 4:34 PM SPECIALTY SALES REPRESENTATIVE [facility] RESP THERAPY Mechanical Tidal Volume (mL) 380 08/13/2024 4:34 PM SPECIALTY SALES REPRESENTATIVE [facility] RESP THERAP[facility] Mechanical Respiratory Rate (bpm) 22 08/13/2024 4:34 PM SPECIALTY SALES REPRESENTATIVE [facility] RESP THERAP[facility] PEEP (cmH2O) 10 08/13/2024 4:34 PM SPECIALTY SALES REPRESENTATIVE [facility] RESP THERAPY Blood, arterial ARTERIAL BLOOD SPECIMEN / Unknown 08/13/2024 4:16 PM SPECIALTY SALES REPRESENTATIVE 08/13/2024 4:16 PM SPECIALTY SALES REPRESENTATIVE Alexus Ramirez MD LAB - BLOOD GASES OR DERABLES [facility] [id number] [phone] * XR CHEST 1VW PORTABLE (08/13/2024 4:04 PM SPECIALTY SALES REPRESENTATIVE) Anatomical Region Laterality Modality Chest Computed Radiogr aphy 08/13/2024 4:10 PM SPECIALTY SALES REPRESENTATIVE Impressions 08/13/2024 4:12 PM SPECIALTY SALES REPRESENTATIVE IMPRESSION: Multiple tubing placements as noted above. Subtle linear streak is present in the left lung. Also the diaphragm.? Atelectasis or scarring. Unfortunately, we have no previous chest imaging studies available at this time. > Interpreting Provider: Ko Olguin MD on 08/13/2024 4:12 PM Narrative 08/13/2024 4:12 PM SPECIALTY SALES REPRESENTATIVE PROCEDURE: XR CHEST 1VW PORTABLE DATE/TIME OF [...] to the level of the right atrium. quality assurance monitor chassis wires obscure the chest bilaterally. Heart size [...] extendingto the level of the right atrium. quality assurance monitor chassis wires obscure the chest bilaterally. Heart size [...] * IMMUNOFLUORESCENT STUDY DERM (07/01/2023 3:33 AM SPECIALTY SALES REPRESENTATIVE) Case Report Dermatopathol ogmarcell Report Case: [id number] Authorizing Provider: Kendrick Christopher MD Collected: 07/01/2023 03:33 AM Ordering Location: [facility] DermPath Lab Received: 07/03/2023 12:13 PM Pathologist: Bella Schwab MD Specimen: Skin, right superior han 3:46 PM SPECIALTY SALES REPRESENTATIVE DERMATOPATHOLOGY LABORATORY Final Diagnosis Specimen A. SKIN, right superior han: COLLOID BODIES (L98.9) (see microscopic description) (see fixed tissue results) 3:46 PM [facility] DERMATOPATHOLOGY LABORATORY Direct Immunofluorescence Report - Specimen A Specimen A IgA IgM IgG C3 CollV Fibrinogen Epidermis Negative Negative Negative Negative Negative Negative Basement Membrane Negative Negative Negative Negative 2+ Negative Vessels Negative Negative Negative Negative 2+ Negative Interstitium Colloid Colloid Colloid Negative Negative Non specific 3:46 PM SPECIALTY SALES REPRESENTATIVE DERMATOPATHOLOGY LABORATORY Clinical History Rash; R/O Leukocytoclas tic Vasculitis, Livedo Reticularis 3:46 PM [facility] DERMATOPATHOLOGY LABORATORY Gross Description Specimen A: Received is one Jatinder's media filled container labeled with the patient's name and designated right superior han. The specimen consists of a punch biopsy measuring 5x4x4 mm. The specimen is submitted in whole for direct immunofluores cence testing. 3:46 PM [facility] DERMATOPATHOLOGY LABORATORY Microscopic Description Specimen [...] rubbing. See fixed tissue results. 3:46 PM [facility] DERMATOPATHOLOGY LABORATORY Disclaimer An external and internal positive and negative controls are appropriate for the histochemical , immunohistoch emical and immunofluores cence stain(s) in this case (if any), except where stated explicitly. The performance characteristi cs of the stain(s) cited in this report were developed and its performance characteristi c determined by the Dermatopathol ogy Laboratory at [facility], directed by Dr. Arnol Perea. These tests need not be, and therefore are not, approved by the [place] Food and Drug Administratio n. The tests are used for clinical purposes. Billing Codes Specimen Charges Stain Charges 83752 68333 70241 43120 49747 06023 1 1 1 1 1 1 3 3:46 PM SPECIALTY SALES REPRESENTATIVE DERMATOPATHOLOGY LABORATORY Embedded Images 3:46 PM SPECIALTY SALES REPRESENTATIVE DERMATOPATHOLOGY LABORATORY Pathology/Cytolo gy TISSUE SPECIMEN FROM SKIN / Unknown 07/01/2023 3:33 AM SPECIALTY SALES REPRESENTATIVE 07/03/2023 12:13 PM SPECIALTY SALES REPRESENTATIVE Kendrick Christopher MD LAB - PATHOLOGY/CY TOLOGY ORDERABLES DERMATOPATHOLOGY LABORATORY [facility] - Department of Dermatology [facility] Medicine [address] [place] [address], [address] [phone] * DERMATOPATHOLOGY (07/01/2023 3:33 AM SPECIALTY SALES REPRESENTATIVE) Case Report Dermatopathology Report Case: [id number] Authorizing Provider: Kendrick Christopher MD Collected: 07/01/2023 03:33 AM Ordering Location: [facility] DermPath Lab Received: 07/03/2023 12:12 PM Pathologist: Bella Schwab MD Specimen: Skin, right inferior knee 3:45 PM SPECIALTY SALES REPRESENTATIVE DERMATOPATHOLOGY LABORATORY Final Diagnosis Specimen A. SKIN, right inferior knee: STASIS DERMATITIS (L30.8) DERMAL FIBROSIS (L90.5) (see microscopic description) 3:45 PM SPECIALTY SALES REPRESENTATIVE DERMATOPATHOLOGY LABORATORY Clinical History Rash; R/O Leukocytoclastic Vasculitis, Livedo Reticularis 3 3:45 PM SPECIALTY SALES REPRESENTATIVE DERMATOPATHOLOGY LABORATORY Gross Description Specimen A: Received is one formalin filled container labeled with the patient's name and designated right inferior knee. The specimen consists of a punch biopsy measuring 6x5x6 mm. Jar 0. 3 3:45 PM [facility] DERMATOPATHOLOGY LABORATORY Microscopic Description Specimen [...] were obtained and reviewed. 3 3:45 PM [facility] DERMATOPATHOLOGY LABORATORY Disclaimer An external and internal positive and negative controls are appropriate for the histochemical, immunohistochemical and immunofluorescence stain(s) in this case (if any), except where stated explicitly. The performance characteristics of the stain(s) cited in this report were developed and its performance characteristic determined by the Dermatopathology Laboratory at [facility], directed by Dr. Arnol Perea. These tests need not be, and therefore are not, approved by the [place] Food and Drug Administration. The tests are used for clinical purposes. Billing Codes Specimen Charges Stain Charges 44412 1 16156 1 3 3:45 PM [facility] DERMATOPATHOLOGY LABORATORY Embedded Images 3 3:45 PM [facility] DERMATOPATHOLOGY LABORATORY Pathology/Cytolo gy TISSUE SPECIMEN FROM SKIN / Unknown 07/01/2023 3:33 AM SPECIALTY SALES REPRESENTATIVE 07/03/2023 12:12 PM SPECIALTY SALES REPRESENTATIVE Kendrick Christopher MD LAB - PATHOLOGY/CY TOLOGY ORDERABLES DERMATOPATHOLOGY LABORATORY [facility] - Department of Dermatology [facility] [address] [place] [address], [address] [phone] Care Teams Train Director Relationship Specialty Start Date End Date Kishor Saleh MD [address] [place] [address] DR S[place] [address] [place] [id number] PCP - General Internal Medicine 07/31/23
--- OUTSIDE RECORDS SUMMARY | 2024-09-23 00:13 | XMS_ITS | Encounter Summary ---
Author Organization [facility] Address [address] [place] [address] Care Team Providers Care Business Segment Manager Name Role Phone Tiffany Cox MD Primary Care Provider Unavailable Kishor Saleh MD Primary Care Provider [phone] Encounter Details Date Type Department Care Team (Late st Contact Info) Description 07/03/2023 Lab Requisition [facility] - DermPath Lab [address] [facility] [place] [address] [place] [id number] [address] Social History Tobacco Use Types [...] IMMUNOFLUORESCENT STUDY DERM Routine 07/01/2023 3:33 AM BUSINESS PROCESS ENGINEER documented in this encounter Results * IMMUNOFLUORESCENT STUDY DERM (07/01/2023 3:33 AM BUSINESS PROCESS ENGINEER) Case Report Dermatopathol ogy Report Case: [id number] Authorizing Provider: Kendrick Christopher MD Collected: 07/01/2023 03:33 AM Ordering Location: [facility] DermPath Lab Received: 07/03/2023 12:13 PM Pathologist: Bella Schwab MD Specimen: Skin, right superior han 3:46 PM [facility] DERMATOPATHOLOGY LABORATORY Final Diagnosis Specimen A. SKIN, right superior han: COLLOID BODIES (L98.9) (see microscopic description) (see fixed tissue results) 3 3:46 PM [facility] DERMATOPATHOLOGY LABORATORY Direct Immunofluorescence Report - Specimen A Specimen A IgA IgM IgG C3 CollV Fibrinogen Epidermis Negative Negative Negative Negative Negative Negative Basement Membrane Negative Negative Negative Negative 2+ Negative Vessels Negative Negative Negative Negative 2+ Negative Interstitium Colloid Colloid Colloid Negative Negative Non specific 3 3:46 PM [facility] DERMATOPATHOLOGY LABORATORY Clinical History Rash; R/O Leukocytoclas tic Vasculitis, Livedo Reticularis 3:46 PM [facility] DERMATOPATHOLOGY LABORATORY Gross Description Specimen A: Received is one Jatinder's media filled container labeled with the patient's name and designated right superior han. The specimen consists of a punch biopsy measuring 5x4x4 mm. The specimen is submitted in whole for direct immunofluores cence testing. 3:46 PM [facility] DERMATOPATHOLOGY LABORATORY Microscopic Description Specimen [...] See fixed tissue results. 3 3:46 PM [facility] DERMATOPATHOLOGY LABORATORY Disclaimer An external and internal positive and negative controls are appropriate for the histochemical , immunohistoch emical and immunofluores cence stain(s) in this case (if any), except where stated explicitly. The performance characteristi cs of the stain(s) cited in this report were developed and its performance characteristi c determined by the Dermatopathol ogy Laboratory at [facility], directed by Dr. Arnol Perea. These tests need not be, and therefore are not, approved by the [place] Food and Drug Administratio n. The tests are used for clinical purposes. Billing Codes Specimen Charges Stain Charges 15670 50222 97263 06180 62269 94747 1 1 1 1 1 1 3 3:46 PM BUSINESS PROCESS ENGINEER DERMATOPATHOLOGY LABORATORY Embedded Images 3 3:46 PM BUSINESS PROCESS ENGINEER DERMATOPATHOLOGY LABORATORY Pathology/Cytolo gy TISSUE SPECIMEN FROM SKIN / Unknown 07/01/2023 3:33 AM BUSINESS PROCESS ENGINEER 07/03/2023 12:13 PM BUSINESS PROCESS ENGINEER Kendrick Christopher MD LAB - PATHOLOGY/CY TOLOGY ORDERABLES DERMATOPATHOLOGY LABORATORY [facility] - Department of Dermatology [facility] [address] [place] [address], [address] [phone] documented in this encounter Visit Diagnoses Not on filedocumented in this encounter Additional Health Concerns Infection Onset Date Last Indicated Resolved Time COVID-19 Under Investigation 08/13/2024 08/13/2024 08/13/2024 11:30 PM BUSINESS PROCESS ENGINEER documented as of this encounter Care Teams Business Segment Manager Relationship Specialty Start Date End Date Tiffany Cox MD PCP - General Internal Medicine 05/16/13 07/30/23 Kishor Saleh MD [address] [facility] [address] S[place] [place] [id number] PCP - General Internal Medicine 07/31/23 documented as of this encounter
--- OUTSIDE RECORDS SUMMARY | 2024-09-23 00:13 | XMS_ITS | Encounter Summary ---
Author Organization [facility] Address [address] [facility] [place] [address] Care Team Providers Care Production Cost Estimator Name Role Phone Tiffany Cox MD Primary Care Provider Unavailable Kishor Saleh MD Primary Care Provider Encounter Details Date Type Department Care Team (Late st Contact Info) Description 07/03/2023 Lab Requisition [facility] - DermPath Lab [address] [place] [phone] [place] [address] [facility] [address] S[place] [address] [place] [id number] Social History Tobacco Use Types Packs/Day [...] Under Investigation 08/13/2024 08/13/2024 08/13/2024 11:30 PM MECHANIC HELPER documented as of this encounter Care Teams Production Cost Estimator Relationship Specialty Start Date End Date Tiffany Cox MD PCP - General Internal Medicine 05/16/13 07/30/23 Kishor Saleh MD [address] [place] [address] DR S[place] [address] [place] [phone] PCP - General Internal Medicine 07/31/23 documented as of this encounter
--- OUTSIDE RECORDS SUMMARY | 2024-09-23 00:13 | XMS_ITS | Clinical Summary ---
Author Organization [facility] Address [address] [place] [address] Care Team Providers Care Behavioral Health Rn Name Role Phone Kishor Saleh MD Primary Care Provider Source Comments [facility],non-owned Affiliates and Associated Physician Practices is amultiple site organization consisting of ambulatory clinics and hospital sitesin [place], [place], [place] and [place]. This disclosure is being madepursuant to the Care Everywhere program and may not contain all information available regarding this patient. Last updated 18.[facility] Allergies Active Allergy Reactions Criticality Noted Date [...] fluticasone propionate (Flonase) 50 MCG/ACT nasal spray [place]ella 2 (two) sprays into each nostril once [...] Active vitamin D, ergocalciferol, (Drisdol) 1.25 MG (14677 UT) capsule Take 1 (one) capsule by [...] Department Care Team Description 08/13/2024 3:43 PM ASSISTANT PRINCIPAL - 08/18/2024 5:19 PM ASSISTANT PRINCIPAL Hospital Encounter DP 6N Telemetry [address] [place] [address] Alexus Ramirez MD Ramgopal, Britney Martin, MD [...] any time in the past 12 m [facility] [place], were you homeless or living in a [facility] (including now)? No 08/15/2024 Sex and Gender Information Value Date Recorded Sex Assigned at Not on file Gender Identity Not on file Sexual Orientation Not on file Last Filed Vital Signs Vital Sign Reading Time Taken Comments Blood Pressure 154/92 08/18/2024 12:25 PM ASSISTANT PRINCIPAL Pulse 102 08/18/2024 12:25 PM ASSISTANT PRINCIPAL Temperature 36.7 C (98.1 F) 08/18/2024 12:25 PM ASSISTANT PRINCIPAL Respiratory Rate 23 08/18/2024 12:2 5 PM ASSISTANT PRINCIPAL Oxygen Saturation 90% 08/18/2024 12: 25 PM ASSISTANT PRINCIPAL Inhaled Oxygen Concentration 21% 08/18/2024 2 :00 PM ASSISTANT PRINCIPAL Weight 132.6 kg (292 lb 4.8 oz) 08/18/2024 4:00 AM ASSISTANT PRINCIPAL Height 167.6 cm (5' 6 ) 08/13/2024 5:14 PM ASSISTANT PRINCIPAL Body Mass Index 47.18 08/13/2024 5:14 PM ASSISTANT PRINCIPAL Plan of Treatment Health Maintenance Due Date [...] CARDIAC RHYTHM STRIP ORDER 08/23/2024 2:41 AM ASSISTANT PRINCIPAL HOME O2 EVAL (DESATURATION SCREEN) Routine 08/18/2024 10:39 AM ASSISTANT PRINCIPAL GLUCOSE - POINT OF CARE Routine 08/18/2024 7:46 AM ASSISTANT PRINCIPAL GLUCOSE - POINT OF CARE Routine 08/17/2024 9:47 PM ASSISTANT PRINCIPAL GLUCOSE - POINT OF CARE Routine 08/17/2024 5:03 PM ASSISTANT PRINCIPAL GLUCOSE - POINT OF CARE Routine 08/17/2024 12:36 PM ASSISTANT PRINCIPAL GLUCOSE - POINT OF CARE Routine 08/17/2024 7:48 AM ASSISTANT PRINCIPAL CBC W/O DIFFERENTIAL AM Draw 08/17/2024 4:16 AM ASSISTANT PRINCIPAL BASIC METABOLIC PANEL (CALCIUM TOTAL) AM Draw 08/17/2024 4:16 AM ASSISTANT PRINCIPAL GLUCOSE - POINT OF CARE Routine 08/17/2024 12:18 AM ASSISTANT PRINCIPAL VANCOMYCIN LEVEL TROUGH Timed 08/16/2024 6:35 PM ASSISTANT PRINCIPAL GLUCOSE - POINT OF CARE Routine 08/16/2024 6:43 AM ASSISTANT PRINCIPAL CBC W/O DIFFERENTIAL AM Draw 08/16/2024 4:59 AM ASSISTANT PRINCIPAL BASIC METABOLIC PANEL (CALCIUM TOTAL) AM Draw 08/16/2024 4:59 AM ASSISTANT PRINCIPAL GLUCOSE - POINT OF CARE Routine 08/15/2024 10:15 PM ASSISTANT PRINCIPAL GLUCOSE - POINT OF CARE Routine 08/15/2024 4:36 PM ASSISTANT PRINCIPAL GLUCOSE - POINT OF CARE Routine 08/15/2024 2:22 PM ASSISTANT PRINCIPAL GLUCOSE - POINT OF CARE Routine 08/15/2024 12:24 PM ASSISTANT PRINCIPAL CULTURE BLOOD Timed 08/15/2024 8:54 AM ASSISTANT PRINCIPAL CULTURE BLOOD Timed 08/15/2024 8:45 AM ASSISTANT PRINCIPAL GLUCOSE - POINT OF CARE Routine 08/15/2024 5:48 AM ASSISTANT PRINCIPAL CBC W/O DIFFERENTIAL AM Draw 08/15/2024 3:33 AM ASSISTANT PRINCIPAL BASIC METABOLIC PANEL (CALCIUM TOTAL) AM Draw 08/15/2024 3:33 AM ASSISTANT PRINCIPAL GLUCOSE - POINT OF CARE Routine 08/14/2024 11:41 PM ASSISTANT PRINCIPAL GLUCOSE - POINT OF CARE Routine 08/14/2024 6:04 PM ASSISTANT PRINCIPAL GLUCOSE - POINT OF CARE Routine 08/14/2024 12:04 PM ASSISTANT PRINCIPAL GLUCOSE - POINT OF CARE Routine 08/14/2024 10:07 AM ASSISTANT PRINCIPAL GLUCOSE - POINT OF CARE Routine 08/14/2024 9:14 AM ASSISTANT PRINCIPAL GLUCOSE - POINT OF CARE Routine 08/14/2024 8:22 AM ASSISTANT PRINCIPAL GLUCOSE - POINT OF CARE Routine 08/14/2024 7:16 AM ASSISTANT PRINCIPAL GLUCOSE - POINT OF CARE Routine 08/14/2024 6:28 AM ASSISTANT PRINCIPAL GLUCOSE - POINT OF CARE Routine 08/14/2024 5:31 AM ASSISTANT PRINCIPAL GLUCOSE - POINT OF CARE Routine 08/14/2024 4:30 AM ASSISTANT PRINCIPAL GLUCOSE - POINT OF CARE Routine 08/14/2024 3:27 AM ASSISTANT PRINCIPAL HEMOGLOBIN A1C Routine 08/14/2024 3:27 AM ASSISTANT PRINCIPAL CBC W/O DIFFERENTIAL AM Draw 08/14/2024 3:27 AM ASSISTANT PRINCIPAL BASIC METABOLIC PANEL (CALCIUM TOTAL) AM Draw 08/14/2024 3:27 AM ASSISTANT PRINCIPAL GLUCOSE - POINT OF CARE Routine 08/14/2024 2:33 AM ASSISTANT PRINCIPAL GLUCOSE - POINT OF CARE Routine 08/14/2024 1:29 AM ASSISTANT PRINCIPAL GLUCOSE - POINT OF CARE Routine 08/14/2024 12:23 AM ASSISTANT PRINCIPAL GLUCOSE - POINT OF CARE Routine 08/13/2024 8:07 PM ASSISTANT PRINCIPAL STREP PNEUMONIAE ANTIGEN URINE Routine 08/13/2024 5:17 PM ASSISTANT PRINCIPAL LEGIONELLA ANTIGEN URINE Routine 08/13/2024 5:17 PM ASSISTANT PRINCIPAL RESPIRATORY PANEL WITH SARS-COV-2 BY PCR (STL) Routine 08/13/2024 5:09 PM ASSISTANT PRINCIPAL CULTURE BLOOD Timed 08/13/2024 5:09 PM ASSISTANT PRINCIPAL CULTURE MRSA Routine 08/13/2024 5:09 PM ASSISTANT PRINCIPAL DIFFERENTIAL MANUAL STAT 08/13/2024 5 :08 PM ASSISTANT PRINCIPAL PTT STAT 08/13/2024 5:08 PM ASSISTANT PRINCIPAL PT-INR STAT 08/13/2024 5:08 PM ASSISTANT PRINCIPAL PHOSPHORUS BLOOD STAT 08/13/2024 5:08 PM ASSISTANT PRINCIPAL MAGNESIUM BLOOD STAT 08/13/2024 5:08 PM ASSISTANT PRINCIPAL LIPASE BLOOD STAT 08/13/2024 5:08 PM ASSISTANT PRINCIPAL LACTIC ACID BLOOD STAT 08/13/2024 5:0 8 PM ASSISTANT PRINCIPAL COMPREHENSIVE METABOLIC PANEL STAT 08/13/2024 5:08 PM ASSISTANT PRINCIPAL CBC W AUTO DIFFERENTIAL STAT 08/13/2024 5:08 PM ASSISTANT PRINCIPAL B-TYPE NATRIURETIC PEPTIDE STAT 08/13/2024 5:08 PM ASSISTANT PRINCIPAL BCID PANEL Routine 08/13/2024 5:08 PM ASSISTANT PRINCIPAL CULTURE BLOOD Timed 08/13/2024 5:08 PM ASSISTANT PRINCIPAL GLUCOSE - POINT OF CARE Routine 08/13/2024 4:48 PM ASSISTANT PRINCIPAL BLOOD GASES ARTERIAL STAT 08/13/2024 4:16 PM ASSISTANT PRINCIPAL XR CHEST 1VW PORTABLE STAT 08/13/2024 4:04 PM ASSISTANT PRINCIPAL Acute hypoxic respiratory failure (HCC) from Last 3 Months Results * CARDIAC RHYTHM STRIP ORDER (08/23/2024 2:41 AM ASSISTANT PRINCIPAL) Narrative 08/23/2024 2:41 AM ASSISTANT PRINCIPAL Ordered by an unspecified provider. Scanned Document CARDIAC SERVICES ORD ERABLES * GLUCOSE - POINT OF CARE (08/18/2024 7:46 AM ASSISTANT PRINCIPAL) Only the most recent of28 resultswithin the time period is included. Glucose WB/POC 81 70 - 99 mg/dL 08/18/2024 7:51 AM ASSISTANT PRINCIPAL [facility] Specimen Type Cap Fingerstick 2024 7:51 AM ASSISTANT PRINCIPAL [facility] Blood BLOOD SPECIMEN / Unknown 08/18/2024 7:46 AM ASSISTANT PRINCIPAL 08/18/2024 7:51 AM ASSISTANT PRINCIPAL Young Mcwilliams MD LAB - POINT OF CARE ORDERABLES [facility] [address] [place] [address] * (ABNORMAL) CBC W/O DIFFERENTIAL (08/17/2024 4:16 AM ASSISTANT PRINCIPAL) Only the most recent of4 resultswithin the time period is included. WBC 16.3(H) 4.0 - 10.7 x10E9/L 08/17/2024 4:44 AM ASSISTANT PRINCIPAL [facility] RBC Count 3.51(L) 3.90 - 5.20 x10E12/L 08/17/2024 4:44 AM [facility] Hemoglobin 10.3(L) 11.9 - 15.8 g/dL 08/17/2024 4:44 AM [facility] Hematocrit 32.6(L) 34.8 - 46.1 % 08/17/2024 4:44 AM [facility] MCV 92.9 80.0 - 98.0 fL 08/17/2024 4:44 AM [facility] MCH 29.3 26.7 - 33.6 pg 08/17/2024 4:44 AM [facility] MCHC 31.6(L) 31.7 - 36.3 g/dL 08/17/2024 4:44 AM [facility] RDW-CV 15.8(H) 11.3 - 14.8 % 08/17/2024 4:44 AM [facility] Platelet Count 478(H) 150 - 420 x10E9/L 08/17/2024 4:44 AM [facility] MPV 10.4 7.8 - 11.4 fL 08/17/2024 4:44 AM [facility] NRBC 0.8(H) <=0.0 /100 WBC 08/17/2024 4:44 AM [facility] Blood BLOOD SPECIMEN / Unknown Venipuncture / Unknown 08/17/2024 4:16 AM ASSISTANT PRINCIPAL 08/17/2024 4:30 AM [facility] Alexus Ramirez MD LAB - HEMATOLOGY ORD ERABLES [facility] [address] [place] [address] * (ABNORMAL) BASIC METABOLIC PANEL (CALCIUM TOTAL) (08/17/2024 4:16 AM ASSISTANT PRINCIPAL) Only the most recent of4 resultswithin the time period is included. Glucose 139(H) 70 - 99 mg/dL 08/17/2024 4:53 AM [facility] Sodium 140 136 - 145 mmol/L 08/17/2024 4:53 AM [facility] Potassium 3.5 3.5 - 5.1 mmol/L 08/17/2024 4:53 AM [facility] Chloride 108(H) 98 - 107 mmol/L 08/17/2024 4:53 AM [facility] CO2 24 22 - 29 mmol/L 08/17/2024 4:53 AM [facility] Calcium 8.9 8.4 - 10.4 mg/dL 08/17/2024 4:53 AM [facility] Anion Gap 8 6 - 16 mmol/L 08/17/2024 4:53 AM [facility] BUN 15 5.3 - 18.7 mg/dL 08/17/2024 4:53 AM [facility] Creatinine 0.65 0.57 - 1.11 mg/dL 08/17/2024 4:53 AM [facility] eGFR by CKD-EPI >90 >=90 mL/min/1.7 3 m2 08/17/2024 4:53 AM [facility] Blood BLOOD SPECIMEN / Unknown Venipuncture / Unknown 08/17/2024 4:16 AM ASSISTANT PRINCIPAL 08/17/2024 4:30 AM ASSISTANT PRINCIPAL Alexus Ramirez MD LAB - CHEMISTRY MICHAEL MONTGOMERY Performing Organization Address City/[facility] Co de Phone Number [facility] [address] [place] [address] * (ABNORMAL) VANCOMYCIN LEVEL TROUGH (08/16/2024 6:35 PM ASSISTANT PRINCIPAL) [facility] Vancomycin Trough 6.1(L) 10.0 - 20.0 ug/mL 08/16/2024 7:22 PM ASSISTANT PRINCIPAL [facility] Blood BLOOD SPECIMEN / Unknown Venipuncture / Unknown 08/16/2024 6:35 PM ASSISTANT PRINCIPAL 08/16/2024 7:02 PM ASSISTANT PRINCIPAL Anatoliy Wyman MD LAB - CHEMISTRY ORDMarkos MONTGOMERY Performing Organization Address [facility] Co de Phone Number [facility] [address] [place], [place] [phone] * CULTURE BLOOD (08/15/2024 8:54 AM ASSISTANT PRINCIPAL) Only the most recent of4 resultswithin the time period is included. [facility] Signature Culture No growth day 5 LORENZO 08/20/2024 1:31 PM ASSISTANT PRINCIPAL [facility] Blood PERIPHERAL BLOOD / Unknown Venipuncture / Unknown 08/15/2024 8:54 AM ASSISTANT PRINCIPAL 08/15/2024 9:13 AM ASSISTANT PRINCIPAL Amadeo Milner MD LAB - MICROBIOLOGY O RDERABLES [facility] [address] [place] [address], [facility] [phone] * (ABNORMAL) HEMOGLOBIN A1C (08/14/2024 3:27 AM ASSISTANT PRINCIPAL) Hemoglobin A1c 10.1(H) <5.7 % 08/14/2024 3:48 AM ASSISTANT PRINCIPAL [facility] Estimated Average Glucose 243 mg/dL 08/14/2024 3:48 AM ASSISTANT PRINCIPAL [facility] Blood BLOOD SPECIMEN / Unknown Venipuncture / Unknown 08/14/2024 3:27 AM ASSISTANT PRINCIPAL 08/14/2024 3:37 AM ASSISTANT PRINCIPAL Narrative [facility] - 08/14/2024 3:48 AM ASSISTANT PRINCIPAL HbA1c Interpretation: Normal: < 5.7% Pre-diabetes: 5.7-6.4% [...] exceeds 5% in the specimen. The [employer] assay for the measurement of HbA1c is a National Glycohemoglobin Standardization Program (NGSP) certified method. Alexus Ramirez MD LAB - CHEMISTRY MIGUELMarkos MONTGOMERY Performing Organization Address City/[facility]/ZIP Co de Phone Number [facility] [address] [place] [address] * STREP PNEUMONIAE ANTIGEN URINE (08/13/2024 5:17 PM ASSISTANT PRINCIPAL) Streptococcus pneumoniae Antigen Urine Negative Negative 08/14/2024 8:17 AM ASSISTANT PRINCIPAL [facility] Urine URINE / Unknown Collection / Unknown 08/13/2024 5:17 PM ASSISTANT PRINCIPAL 08/13/2024 5:22 PM ASSISTANT PRINCIPAL Narrative [facility] - 08/14/2024 8:17 AM ASSISTANT PRINCIPAL Patients who have received the Streptococcus pneumoniae [...] - MICROBIOLOGY Blayne BABCOCK Performing Organization Address [facility] Co de Phone Number [facility] [address] [place] [id number] [phone] * LEGIONELLA ANTIGEN URINE (08/13/2024 5:17 PM ASSISTANT PRINCIPAL) Legionella Antigen Urine Negative Negative 08/14/2024 8:21 AM ASSISTANT PRINCIPAL [facility] Urine URINE / Unknown Collection / Unknown 08/13/2024 5:17 PM ASSISTANT PRINCIPAL 08/13/2024 5:22 PM ASSISTANT PRINCIPAL Narrative [facility] - 08/14/2024 8:21 AM ASSISTANT PRINCIPAL This assay detects Legionella pneumophila serogroup one (1) antigen. A negative test result does not rule out the possibility of Legionella infection due to other serogroups or species of Legionella. A positive result may indicate a recent or remote infection with serogroup 1. Alexus Ramirez MD LAB - MICROBIOLOGY [place] Performing Organization Address City/[facility]/ZIP Co de Phone Number [facility] [address] [place] [address], [facility] [phone] * (ABNORMAL) RESPIRATORY PANEL WITH SARS-COV-2 BY PCR (STL) (08/13/2024 5:09 PM ASSISTANT PRINCIPAL) Adenovirus PCR Not detected Not detected 08/13/2024 11:30 PM ASSISTANT PRINCIPAL [facility] Coronavirus 229E PCR Not detected Not detected 08/13/2024 11:30 PM ASSISTANT PRINCIPAL [facility] Coronavirus HKU1 PCR Not detected Not detected 08/13/2024 11:30 PM ASSISTANT PRINCIPAL [facility] Coronavirus NL63 PCR Not detected Not detected 08/13/2024 11:30 PM ASSISTANT PRINCIPAL [facility] Coronavirus OC43 PCR Not detected Not detected 08/13/2024 11:30 PM ASSISTANT PRINCIPAL [facility] COVID-19 PCR Not detected Not detected 08/13/2024 11:30 PM ASSISTANT PRINCIPAL [facility] Human Metapneumovirus PCR Not detected Not detected 08/13/2024 11:30 PM ASSISTANT PRINCIPAL [facility] Human Rhinovirus/Enterov irus PCR Not detected Not detected 08/13/2024 11:30 PM ASSISTANT PRINCIPAL [facility] Influenza A PCR Not detected Not detected 08/13/2024 11:30 PM ASSISTANT PRINCIPAL [facility] Influenza B PCR Not detected Not detected 08/13/2024 11:30 PM ASSISTANT PRINCIPAL [facility] Parainfluenza Virus 1 PCR Not detected Not detected 08/13/2024 11:30 PM ASSISTANT PRINCIPAL [facility] Parainfluenza Virus 2 PCR Not detected Not detected 08/13/2024 11:30 PM ASSISTANT PRINCIPAL [facility] Parainfluenza Virus 3 PCR Not detected Not detected 08/13/2024 11:30 PM ASSISTANT PRINCIPAL [facility] Parainfluenza Virus 4 PCR Not detected Not detected 08/13/2024 11:30 PM ASSISTANT PRINCIPAL [facility] Respiratory Syncytial Virus PCR Detected(A) Not detected 08/13/2024 11:30 PM ASSISTANT PRINCIPAL [facility] Bordetella parapertussis PCR Not detected Not detected 08/13/2024 11:30 PM ASSISTANT PRINCIPAL [facility] Bordetella pertussis PCR Not detected Not detected 08/13/2024 11:30 PM ASSISTANT PRINCIPAL [facility] Chlamydia pneumoniae PCR Not detected Not detected 08/13/2024 11:30 PM ASSISTANT PRINCIPAL [facility] Mycoplasma pneumoniae PCR Not detected Not detected 08/13/2024 11:30 PM ASSISTANT PRINCIPAL [facility] Microbiology SPECIMEN FROM NASOPHARYNGEAL STRUCTURE / Unknown Collection / Unknown 08/13/2024 5:09 PM ASSISTANT PRINCIPAL 08/13/2024 5:20 PM ASSISTANT PRINCIPAL Narrative [facility] - 08/13/2024 11:30 PM ASSISTANT PRINCIPAL Contact and Droplet Precautions Required. This nucleic amplification assay has received FDA authorization via the [place] Pathway. Alexus Ramirez MD LAB - MICROBIOLOGY O YOKO [facility] [address] [place] [address], [facility] [phone] * CULTURE MRSA (08/13/2024 5:09 PM ASSISTANT PRINCIPAL) Culture Negative for methicillin-resist ant Staphylococcus aureus (MRSA) LORENZO 08/15/2024 8:16 AM ASSISTANT PRINCIPAL [facility] Microbiology SPECIMEN FROM NASAL FOSSAE / Unknown Collection / Unknown 08/13/2024 5:09 PM ASSISTANT PRINCIPAL 08/13/2024 5:21 PM ASSISTANT PRINCIPAL Alexus Ramirez MD LAB - MICROBIOLOGY O Y[place] [facility] [address] [place] [address], [facility] [phone] * (ABNORMAL) BCID PANEL (08/13/2024 5:08 PM ASSISTANT PRINCIPAL) Staphylococcus epidermidis Detected (A) Not detected 08/15/2024 2:03 AM ASSISTANT PRINCIPAL [facility] MECA/C (Methicillin-Resi stance Gene) Detected (A) Not detected 08/15/2024 2:03 AM [facility] Comment:Results indicate met hicillin-resistant Staphylococcus epidermidis. Methicillin-resistance detected. Blood PERIPHERAL BLOOD / Unknown Venipuncture / Unknown 08/13/2024 5:08 PM ASSISTANT PRINCIPAL 08/13/2024 5:19 PM ASSISTANT PRINCIPAL Narrative [facility] - 08/15/2024 2:03 AM ASSISTANT PRINCIPAL Blood Culture ID Panel performed by [employer] multiplex PCR. The Test panel includes: Gram [...] and MREJ (methicillin-resistance - MRSA), NDM ([place] [id number]-qufbafirw), OXA-48-like (oxacillinase beta-lactamase),Ashly/B (vancomycin-resistance), VIM (Noa Intergrom-Encoded Metallo beta-lactamase). Alexus Ramirez MD LAB - MICROBIOLOGY O RDERABLES [facility] [address] [phone] * PTT (08/13/2024 5:08 PM ASSISTANT PRINCIPAL) PTT 28.4 23.0 - 38.4 sec 08/13/2024 5:43 PM ASSISTANT PRINCIPAL [facility] Blood BLOOD SPECIMEN / Unknown Venipuncture / Unknown 08/13/2024 5:08 PM ASSISTANT PRINCIPAL 08/13/2024 5:21 PM ASSISTANT PRINCIPAL Narrative [facility] - 08/13/2024 5:43 PM ASSISTANT PRINCIPAL Heparin Therapeutic Range for PTT: 69.0 - 110.0 seconds. Alexus Ramirez MD LAB - COAGULATION OR DERABLES Performing Organization Address [facility] Co de Phone Number [facility] [id number] [place] [phone] * PT-INR (08/13/2024 5:08 PM ASSISTANT PRINCIPAL) PT 14.1 12.1 - 14.8 sec 08/13/2024 5:43 PM ASSISTANT PRINCIPAL [facility] INR 1.1 0.9 - 1.1 08/13/2024 5:43 PM ASSISTANT PRINCIPAL [facility] Blood BLOOD SPECIMEN / Unknown Venipuncture / Unknown 08/13/2024 5:08 PM ASSISTANT PRINCIPAL 08/13/2024 5:21 PM ASSISTANT PRINCIPAL Narrative [facility] - 08/13/2024 5:43 PM ASSISTANT PRINCIPAL Conventional Warfarin Anticoagulant Therapy: INR Reference Range: 2.0-3.0 Intensive Warfarin Anticoagulant Therapy: INR Reference Range: 2.5-3.5 Alexus Ramirez MD LAB - COAGULATION OR DERABLES Performing Organization Address [facility] de Phone Number [facility] [address] [place] [address] * (ABNORMAL) DIFFERENTIAL MANUAL (08/13/2024 5:08 PM ASSISTANT PRINCIPAL) Neutrophil % 90(H) 41 - 74 % 08/13/2024 6:34 PM ASSISTANT PRINCIPAL [facility] Lymphocyte % 4(L) 17 - 47 % 08/13/2024 6:34 PM [facility] Monocyte % 1(L) 3 - 11 % 08/13/2024 6:34 PM [facility] Basophil % 1 0 - 2 % 08/13/2024 6:34 PM [facility] Myelocyte % 3(H) 0% % 08/13/2024 6:34 PM ASSISTANT PRINCIPAL [facility] Promyelocyte % 1(H) 0% % 08/13/2024 6:34 PM [facility] Neutrophil Absolute 17.91(H) 1.60 - 7.50 x10E9/L 08/13/2024 6:34 PM [facility] Lymphocyte Absolute 0.80(L) 1.00 - 4.40 x10E9/L 08/13/2024 6:34 PM [facility] Monocyte Absolute 0.20 0.15 - 1.00 x10E9/L 08/13/2024 6:34 PM [facility] Basophil Absolute 0.20(H) 0.00 - 0.13 x10E9/L 08/13/2024 6:34 PM [facility] RBC Morphology REVIEWED 08/13/2024 6:34 PM [facility] Blood BLOOD SPECIMEN / Unknown Venipuncture / Unknown 08/13/2024 5:08 PM ASSISTANT PRINCIPAL 08/13/2024 5:21 PM ASSISTANT PRINCIPAL Alexus Ramirez MD LAB - HEMATOLOGY ORD ERABLES [facility] [address] [place] [address] * (ABNORMAL) CBC W AUTO DIFFERENTIAL (08/13/2024 5:08 PM ASSISTANT PRINCIPAL) WBC 19.9(H) 4.0 - 10.7 x10E9/L 08/13/2024 6:34 PM [facility] RBC Count 3.41(L) 3.90 - 5.20 x10E12/L 08/13/2024 6:34 PM [facility] Hemoglobin 10.1(L) 11.9 - 15.8 g/dL 08/13/2024 6:34 PM [facility] Hematocrit 31.0(L) 34.8 - 46.1 % 08/13/2024 6:34 PM [facility] MCV 90.9 80.0 - 98.0 fL 08/13/2024 6:34 PM [facility] MCH 29.6 26.7 - 33.6 pg 08/13/2024 6:34 PM [facility] MCHC 32.6 31.7 - 36.3 g/dL 08/13/2024 6:34 PM [facility] RDW-CV 15.2(H) 11.3 - 14.8 % 08/13/2024 6:34 PM [facility] Platelet Count 340 150 - 420 x10E9/L 08/13/2024 6:34 PM ASSISTANT PRINCIPAL [facility] MPV 11.4 7.8 - 11.4 fL 08/13/2024 6:34 PM ASSISTANT PRINCIPAL [facility] Blood BLOOD SPECIMEN / Unknown Venipuncture / Unknown 08/13/2024 5:08 PM ASSISTANT PRINCIPAL 08/13/2024 5:21 PM ASSISTANT PRINCIPAL Alexus Ramirez MD LAB - HEMATOLOGY ORD ERABLES Performing Organization Address [facility] Co de Phone Number [facility] [address] [place] [address] * B-TYPE NATRIURETIC PEPTIDE (08/13/2024 5:08 PM ASSISTANT PRINCIPAL) Pathologist [facility] BNP 43 <=100 pg/mL 08/13/2024 5:45 PM [facility] LABORATORY Blood BLOOD SPECIMEN / Unknown Venipuncture / Unknown 08/13/2024 5:08 PM ASSISTANT PRINCIPAL 08/13/2024 5:21 PM ASSISTANT PRINCIPAL Alexus Ramirez MD LAB - CHEMISTRY ORDE RABLES Performing Organization Address [facility] de Phone Number [facility] [address] [place] [address] * (ABNORMAL) COMPREHENSIVE METABOLIC PANEL (08/13/2024 5:08 PM ASSISTANT PRINCIPAL) Glucose 396(H) 70 - 99 mg/dL 08/13/2024 5:39 PM [facility] Sodium 135(L) 136 - 145 mmol/L 08/13/2024 5:39 PM [facility] Potassium 5.0 3.5 - 5.1 mmol/L 08/13/2024 5:39 PM [facility] Chloride 99 98 - 107 mmol/L 08/13/2024 5:39 PM [facility] CO2 26 22 - 29 mmol/L 08/13/2024 5:39 PM [facility] Calcium 9.2 8.4 - 10.4 mg/dL 08/13/2024 5:39 PM [facility] Anion Gap 10 6 - 16 mmol/L 08/13/2024 5:39 PM [facility] BUN 28(H) 5.3 - 18.7 mg/dL 08/13/2024 5:39 PM ASSISTANT PRINCIPAL [facility] Creatinine 0.89 0.57 - 1.11 mg/dL 08/13/2024 5:39 PM [facility] Alkaline Phosphatase 111 40 - 150 U/L 08/13/2024 5:39 PM ASSISTANT PRINCIPAL [facility] ALT 40 0 - 55 U/L 08/13/2024 5:39 PM ASSISTANT PRINCIPAL [facility] AST 15 5 - 34 U/L 08/13/2024 5:39 PM [facility] Protein Total 6.8 6.4 - 8.3 gm/dL 08/13/2024 5:39 PM [facility] Albumin 2.6(L) 3.4 - 5.0 gm/dL 08/13/2024 5:39 PM [facility] Bilirubin Total 0.2 0.2 - 1.2 mg/dL 08/13/2024 5:39 PM [facility] eGFR by CKD-EPI 80(L) >=90 mL/min/1.7 3 m2 08/13/2024 5:39 PM ASSISTANT PRINCIPAL [facility] Blood BLOOD SPECIMEN / Unknown Venipuncture / Unknown 08/13/2024 5:08 PM ASSISTANT PRINCIPAL 08/13/2024 5:21 PM ASSISTANT PRINCIPAL Alexus Ramirez MD LAB - CHEMISTRY ORDMarkos [place] Performing Organization Address City/[facility]/ZIP Co de Phone Number [facility] [address] [place] [address] * PHOSPHORUS BLOOD (08/13/2024 5:08 PM ASSISTANT PRINCIPAL) Phosphorus 3.3 2.5 - 4.5 mg/dL 08/13/2024 5:39 PM ASSISTANT PRINCIPAL [facility] Blood BLOOD SPECIMEN / Unknown Venipuncture / Unknown 08/13/2024 5:08 PM ASSISTANT PRINCIPAL 08/13/2024 5:21 PM ASSISTANT PRINCIPAL Alexus Ramirez MD LAB - CHEMISTRY ORDMarkos [place] Performing Organization Address City/[facility]/ZIP Co de Phone Number [facility] [address] [place] [address] * MAGNESIUM BLOOD (08/13/2024 5:08 PM ASSISTANT PRINCIPAL) Pathologist [facility] Magnesium 2.0 1.6 - 2.6 mg/dL 08/13/2024 5:39 PM ASSISTANT PRINCIPAL [facility] Blood BLOOD SPECIMEN / Unknown Venipuncture / Unknown 08/13/2024 5:08 PM ASSISTANT PRINCIPAL 08/13/2024 5:21 PM ASSISTANT PRINCIPAL Alexus Ramirez MD LAB - CHEMISTRY MICHAEL [place] Performing Organization Address City/[facility]/ZIP Co de Phone Number [facility] [address] [place] [address] [phone] * LIPASE BLOOD (08/13/2024 5:08 PM ASSISTANT PRINCIPAL) Pathologist [facility] Lipase 25 <60 U/L 08/13/2024 5:39 PM ASSISTANT PRINCIPAL [facility] Blood BLOOD SPECIMEN / Unknown Venipuncture / Unknown 08/13/2024 5:08 PM ASSISTANT PRINCIPAL 08/13/2024 5:21 PM ASSISTANT PRINCIPAL Alexus Ramirez MD LAB - CHEMISTRY MICHAEL [place] Performing Organization Address [facility] Co de Phone Number [facility] [address] [place] [phone] * LACTIC ACID BLOOD (08/13/2024 5:08 PM ASSISTANT PRINCIPAL) [facility] Lactic Acid 1.5 <=2.0 mmol/L 08/13/2024 5:39 PM ASSISTANT PRINCIPAL [facility] Blood BLOOD SPECIMEN / Unknown Venipuncture / Unknown 08/13/2024 5:08 PM ASSISTANT PRINCIPAL 08/13/2024 5:21 PM ASSISTANT PRINCIPAL Alexus Ramirez MD LAB - CHEMISTRY MICHAEL [place] Performing Organization Address [facility] Co de Phone Number [facility] [id number] [place] [address] [phone] * (ABNORMAL) BLOOD GASES ARTERIAL (08/13/2024 4:16 PM ASSISTANT PRINCIPAL) Pathologist [facility] pH Arterial 7.47(H) 7.35 - 7.45 pH 08/13/2024 4:34 PM ASSISTANT PRINCIPAL [facility] RESP THERAP[facility] pO2 Arterial 99 80 - 100 mmHg 08/13/2024 4:34 PM ASSISTANT PRINCIPAL [facility] RESP THERAP[facility] pCO2 Arterial 39 35 - 45 mmHg 08/13/2024 4:34 PM ASSISTANT PRINCIPAL [facility] RESP THERAP[facility] HCO3 Arterial 28.4(H) 22.0 - 26.0 mmol/L 08/13/2024 4:34 PM ASSISTANT PRINCIPAL [facility] RESP THERAPY BE Arterial 4.5(H) -2.0 - 2.0 mmol/L 08/13/2024 4:34 PM ASSISTANT PRINCIPAL [facility] RESP THERAP[facility] O2 Saturation Arterial 99 90 - 100 % 08/13/2024 4:34 PM ASSISTANT PRINCIPAL [facility]ERAP[facility] Sample Site Right RA 08/13/2024 4:34 PM ASSISTANT PRINCIPAL [facility] RES[facility] THERAP[facility] Mode APVcmv 08/13/2024 4:34 PM ASSISTANT PRINCIPAL [facility] RESP THERAP[facility] O2 Device VENT 08/13/2024 4:34 PM ASSISTANT PRINCIPAL [facility]ERAP[facility] FI O2 50.0 % 08/13/2024 4:34 PM ASSISTANT PRINCIPAL [facility]ER[facility] Mechanical Tidal Volume (mL) 380 08/13/2024 4:34 PM ASSISTANT PRINCIPAL [facility]ERAP[facility] Mechanical Respiratory Rate (bpm) 22 08/13/2024 4:34 PM ASSISTANT PRINCIPAL [facility] RESP [facility]ERAP[facility] PEEP (cmH2O) 10 08/13/2024 4:34 PM ASSISTANT PRINCIPAL [facility] RESP THERAP[facility] Blood, arterial ARTERIAL BLOOD SPECIMEN / Unknown 08/13/2024 4:16 PM ASSISTANT PRINCIPAL 08/13/2024 4:16 PM ASSISTANT PRINCIPAL Alexus Ramirez MD LAB - BLOOD GASES OR DERABLES [facility] [id number] [phone] * XR CHEST 1VW PORTABLE (08/13/2024 4:04 PM ASSISTANT PRINCIPAL) Anatomical Region Laterality Modality Chest Computed Radiogr aphy 08/13/2024 4:10 PM ASSISTANT PRINCIPAL Impressions 08/13/2024 4:12 PM ASSISTANT PRINCIPAL IMPRESSION: Multiple tubing placements as noted above. Subtle linear streak is present in the left lung. Also the diaphragm.? Atelectasis or scarring. Unfortunately, we have no previous chest imaging studies available at this time. > Interpreting Provider: Ko Olguin MD on 08/13/2024 4:12 PM Narrative 08/13/2024 4:12 PM ASSISTANT PRINCIPAL PROCEDURE: XR CHEST 1VW PORTABLE DATE/TIME OF [...] to the level of the right atrium. ophthalmology surgical technician wires obscure the chest bilaterally. Heart size [...] extendingto the level of the right atrium. ophthalmology surgical technician wires obscure the chest bilaterally. Heart size [...] 3:54 PM 08/18/2024 6:24 PM Care Teams Behavioral Health Rn Relationship Specialty Start Date End Date Kishor Saleh MD 2 [facility] [address] [address] PCP - General Internal Medicine 07/31/23
--- OUTSIDE RECORDS SUMMARY | 2024-09-23 00:13 | XMS_ITS | Referral Summary ---
Author Organization [facility] Address [address] [place] [address] Care Team Providers Care Retort Furnace Operator Name Role Phone Kishor Saleh MD Primary Care Provider Source Comments [facility],non-owned Affiliates and Associated Physician Practices is amultiple site organization consisting of ambulatory clinics and hospital sitesin [place] and [place]. This disclosure is being madepursuant to the Care Everywhere program and may not contain all information available regarding this patient. Last updated 18.[facility] Encounters Date Type Department Care Team Description 08/13/2024 3:43 PM SERGEANT OF CORRECTIONS - 08/18/2024 5:19 PM SERGEANT OF CORRECTIONS Hospital Encounter [facility] 6N Tele[address] [place], [place] [id number] Alexus Ramirez MD Ramgopal, Britney Martin, MD [...] fluticasone propionate (Flonase) 50 MCG/ACT nasal spray [place] 2 (two) sprays into each nostril once [...] Active vitamin D, ergocalciferol, (Drisdol) 1.25 MG (80923 UT) capsule Take 1 (one) capsule by [...] any time in the past 12 m [facility], were you homeless or living in a usp (including now)? No 08/15/2024 Sex and Gender Information Value Date Recorded Sex Assigned at Not on file Gender Identity Not on file Sexual Orientation Not on file Last Filed Vital Signs Vital Sign Reading Time Taken Comments Blood Pressure 154/92 08/18/2024 12:25 PM SERGEANT OF CORRECTIONS Pulse 102 08/18/2024 12:25 PM SERGEANT OF CORRECTIONS Temperature 36.7 C (98.1 F) 08/18/2024 12:25 PM SERGEANT OF CORRECTIONS Respiratory Rate 23 08/18/2024 12:2 5 PM SERGEANT OF CORRECTIONS Oxygen Saturation 90% 08/18/2024 12: 25 PM SERGEANT OF CORRECTIONS Inhaled Oxygen Concentration 21% 08/18/2024 2 :00 PM SERGEANT OF CORRECTIONS Weight 132.6 kg (292 lb 4.8 oz) 08/18/2024 4:00 AM SERGEANT OF CORRECTIONS Height 167.6 cm (5' 6 ) 08/13/2024 5:14 PM SERGEANT OF CORRECTIONS Body Mass Index 47.18 08/13/2024 5:14 PM SERGEANT OF CORRECTIONS Functional Status Functional Status Response Date of [...] CARDIAC RHYTHM STRIP ORDER 08/23/2024 2:41 AM SERGEANT OF CORRECTIONS HOME O2 EVAL (DESATURATION SCREEN) Routine 08/18/2024 10:39 AM SERGEANT OF CORRECTIONS GLUCOSE - POINT OF CARE Routine 08/18/2024 7:46 AM SERGEANT OF CORRECTIONS GLUCOSE - POINT OF CARE Routine 08/17/2024 9:47 PM SERGEANT OF CORRECTIONS GLUCOSE - POINT OF CARE Routine 08/17/2024 5:03 PM SERGEANT OF CORRECTIONS GLUCOSE - POINT OF CARE Routine 08/17/2024 12:36 PM SERGEANT OF CORRECTIONS GLUCOSE - POINT OF CARE Routine 08/17/2024 7:48 AM SERGEANT OF CORRECTIONS CBC W/O DIFFERENTIAL AM Draw 08/17/2024 4:16 AM SERGEANT OF CORRECTIONS BASIC METABOLIC PANEL (CALCIUM TOTAL) AM Draw 08/17/2024 4:16 AM SERGEANT OF CORRECTIONS GLUCOSE - POINT OF CARE Routine 08/17/2024 12:18 AM SERGEANT OF CORRECTIONS VANCOMYCIN LEVEL TROUGH Timed 08/16/2024 6:35 PM SERGEANT OF CORRECTIONS GLUCOSE - POINT OF CARE Routine 08/16/2024 6:43 AM SERGEANT OF CORRECTIONS CBC W/O DIFFERENTIAL AM Draw 08/16/2024 4:59 AM SERGEANT OF CORRECTIONS BASIC METABOLIC PANEL (CALCIUM TOTAL) AM Draw 08/16/2024 4:59 AM SERGEANT OF CORRECTIONS GLUCOSE - POINT OF CARE Routine 08/15/2024 10:15 PM SERGEANT OF CORRECTIONS GLUCOSE - POINT OF CARE Routine 08/15/2024 4:36 PM SERGEANT OF CORRECTIONS GLUCOSE - POINT OF CARE Routine 08/15/2024 2:22 PM SERGEANT OF CORRECTIONS GLUCOSE - POINT OF CARE Routine 08/15/2024 12:24 PM SERGEANT OF CORRECTIONS CULTURE BLOOD Timed 08/15/2024 8:54 AM SERGEANT OF CORRECTIONS CULTURE BLOOD Timed 08/15/2024 8:45 AM SERGEANT OF CORRECTIONS GLUCOSE - POINT OF CARE Routine 08/15/2024 5:48 AM SERGEANT OF CORRECTIONS CBC W/O DIFFERENTIAL AM Draw 08/15/2024 3:33 AM SERGEANT OF CORRECTIONS BASIC METABOLIC PANEL (CALCIUM TOTAL) AM Draw 08/15/2024 3:33 AM SERGEANT OF CORRECTIONS GLUCOSE - POINT OF CARE Routine 08/14/2024 11:41 PM SERGEANT OF CORRECTIONS GLUCOSE - POINT OF CARE Routine 08/14/2024 6:04 PM SERGEANT OF CORRECTIONS GLUCOSE - POINT OF CARE Routine 08/14/2024 12:04 PM SERGEANT OF CORRECTIONS GLUCOSE - POINT OF CARE Routine 08/14/2024 10:07 AM SERGEANT OF CORRECTIONS GLUCOSE - POINT OF CARE Routine 08/14/2024 9:14 AM SERGEANT OF CORRECTIONS GLUCOSE - POINT OF CARE Routine 08/14/2024 8:22 AM SERGEANT OF CORRECTIONS GLUCOSE - POINT OF CARE Routine 08/14/2024 7:16 AM SERGEANT OF CORRECTIONS GLUCOSE - POINT OF CARE Routine 08/14/2024 6:28 AM SERGEANT OF CORRECTIONS GLUCOSE - POINT OF CARE Routine 08/14/2024 5:31 AM SERGEANT OF CORRECTIONS GLUCOSE - POINT OF CARE Routine 08/14/2024 4:30 AM SERGEANT OF CORRECTIONS GLUCOSE - POINT OF CARE Routine 08/14/2024 3:27 AM SERGEANT OF CORRECTIONS HEMOGLOBIN A1C Routine 08/14/2024 3:27 AM SERGEANT OF CORRECTIONS CBC W/O DIFFERENTIAL AM Draw 08/14/2024 3:27 AM SERGEANT OF CORRECTIONS BASIC METABOLIC PANEL (CALCIUM TOTAL) AM Draw 08/14/2024 3:27 AM SERGEANT OF CORRECTIONS GLUCOSE - POINT OF CARE Routine 08/14/2024 2:33 AM SERGEANT OF CORRECTIONS GLUCOSE - POINT OF CARE Routine 08/14/2024 1:29 AM SERGEANT OF CORRECTIONS GLUCOSE - POINT OF CARE Routine 08/14/2024 12:23 AM SERGEANT OF CORRECTIONS GLUCOSE - POINT OF CARE Routine 08/13/2024 8:07 PM SERGEANT OF CORRECTIONS STREP PNEUMONIAE ANTIGEN URINE Routine 08/13/2024 5:17 PM SERGEANT OF CORRECTIONS LEGIONELLA ANTIGEN URINE Routine 08/13/2024 5:17 PM SERGEANT OF CORRECTIONS RESPIRATORY PANEL WITH SARS-COV-2 BY PCR (STL) Routine 08/13/2024 5:09 PM SERGEANT OF CORRECTIONS CULTURE BLOOD Timed 08/13/2024 5:09 PM SERGEANT OF CORRECTIONS CULTURE MRSA Routine 08/13/2024 5:09 PM SERGEANT OF CORRECTIONS DIFFERENTIAL MANUAL STAT 08/13/2024 5 :08 PM SERGEANT OF CORRECTIONS PTT STAT 08/13/2024 5:08 PM SERGEANT OF CORRECTIONS PT-INR STAT 08/13/2024 5:08 PM SERGEANT OF CORRECTIONS PHOSPHORUS BLOOD STAT 08/13/2024 5:08 PM SERGEANT OF CORRECTIONS MAGNESIUM BLOOD STAT 08/13/2024 5:08 PM SERGEANT OF CORRECTIONS LIPASE BLOOD STAT 08/13/2024 5:08 PM SERGEANT OF CORRECTIONS LACTIC ACID BLOOD STAT 08/13/2024 5:0 8 PM SERGEANT OF CORRECTIONS COMPREHENSIVE METABOLIC PANEL STAT 08/13/2024 5:08 PM SERGEANT OF CORRECTIONS CBC W AUTO DIFFERENTIAL STAT 08/13/2024 5:08 PM SERGEANT OF CORRECTIONS B-TYPE NATRIURETIC PEPTIDE STAT 08/13/2024 5:08 PM SERGEANT OF CORRECTIONS BCID PANEL Routine 08/13/2024 5:08 PM SERGEANT OF CORRECTIONS CULTURE BLOOD Timed 08/13/2024 5:08 PM SERGEANT OF CORRECTIONS GLUCOSE - POINT OF CARE Routine 08/13/2024 4:48 PM SERGEANT OF CORRECTIONS BLOOD GASES ARTERIAL STAT 08/13/2024 4:16 PM SERGEANT OF CORRECTIONS XR CHEST 1VW PORTABLE STAT 08/13/2024 4:04 PM SERGEANT OF CORRECTIONS Acute hypoxic respiratory failure (HCC) from Last 3 Months Results * CARDIAC RHYTHM STRIP ORDER (08/23/2024 2:41 AM SERGEANT OF CORRECTIONS) Narrative 08/23/2024 2:41 AM SERGEANT OF CORRECTIONS Ordered by an unspecified provider. Scanned Document CARDIAC SERVICES ORD ERABLES * GLUCOSE - POINT OF CARE (08/18/2024 7:46 AM SERGEANT OF CORRECTIONS) Only the most recent of28 resultswithin the time period is included. Glucose WB/POC 81 70 - 99 mg/dL 08/18/2024 7:51 AM SERGEANT OF CORRECTIONS [facility] Specimen Type Cap Fingerstick 2024 7:51 AM SERGEANT OF CORRECTIONS [facility] Blood BLOOD SPECIMEN / Unknown 08/18/2024 7:46 AM SERGEANT OF CORRECTIONS 08/18/2024 7:51 AM SERGEANT OF CORRECTIONS Young Mcwilliams MD LAB - POINT OF CARE ORDERABLES [facility] [address] [place] [address] * (ABNORMAL) CBC W/O DIFFERENTIAL (08/17/2024 4:16 AM SERGEANT OF CORRECTIONS) Only the most recent of4 resultswithin the time period is included. WBC 16.3(H) 4.0 - 10.7 x10E9/L 08/17/2024 4:44 AM [facility] RBC Count 3.51(L) 3.90 - 5.20 x10E12/L 08/17/2024 4:44 AM [facility] Hemoglobin 10.3(L) 11.9 - 15.8 g/dL 08/17/2024 4:44 AM [facility] Hematocrit 32.6(L) 34.8 - 46.1 % 08/17/2024 4:44 AM [facility] MCV 92.9 80.0 - 98.0 fL 08/17/2024 4:44 AM [facility] MCH 29.3 26.7 - 33.6 pg 08/17/2024 4:44 AM [facility] MCHC 31.6(L) 31.7 - 36.3 g/dL 08/17/2024 4:44 AM [facility] RDW-CV 15.8(H) 11.3 - 14.8 % 08/17/2024 4:44 AM [facility] Platelet Count 478(H) 150 - 420 x10E9/L 08/17/2024 4:44 AM [facility] MPV 10.4 7.8 - 11.4 fL 08/17/2024 4:44 AM [facility] NRBC 0.8(H) <=0.0 /100 WBC 08/17/2024 4:44 AM [facility] Blood BLOOD SPECIMEN / Unknown Venipuncture / Unknown 08/17/2024 4:16 AM SERGEANT OF CORRECTIONS 08/17/2024 4:30 AM SERGEANT OF CORRECTIONS Alexus Ramirez MD LAB - HEMATOLOGY ORD ERABLES [facility] [id number] [place] [id number] * (ABNORMAL) BASIC METABOLIC PANEL (CALCIUM TOTAL) (08/17/2024 4:16 AM SERGEANT OF CORRECTIONS) Only the most recent of4 resultswithin the time period is included. Glucose 139(H) 70 - 99 mg/dL 08/17/2024 4:53 AM SERGEANT OF CORRECTIONS [facility] Sodium 140 136 - 145 mmol/L 08/17/2024 4:53 AM [facility] Potassium 3.5 3.5 - 5.1 mmol/L 08/17/2024 4:53 AM [facility] Chloride 108(H) 98 - 107 mmol/L 08/17/2024 4:53 AM [facility] CO2 24 22 - 29 mmol/L 08/17/2024 4:53 AM [facility] Calcium 8.9 8.4 - 10.4 mg/dL 08/17/2024 4:53 AM [facility] Anion Gap 8 6 - 16 mmol/L 08/17/2024 4:53 AM [facility] BUN 15 5.3 - 18.7 mg/dL 08/17/2024 4:53 AM [facility] Creatinine 0.65 0.57 - 1.11 mg/dL 08/17/2024 4:53 AM [facility] eGFR by CKD-EPI >90 >=90 mL/min/1.7 3 m2 08/17/2024 4:53 AM [facility] Blood BLOOD SPECIMEN / Unknown Venipuncture / Unknown 08/17/2024 4:16 AM SERGEANT OF CORRECTIONS 08/17/2024 4:30 AM [facility] Alexus Ramirez MD LAB - CHEMISTRY MICHAEL MONTGOMERY [facility] Organization Address City/State/ZIP Co de Phone Number [facility] [address] [place] [address] * (ABNORMAL) VANCOMYCIN LEVEL TROUGH (08/16/2024 6:35 PM SERGEANT OF CORRECTIONS) Vancomycin Trough 6.1(L) 10.0 - 20.0 ug/mL 08/16/2024 7:22 PM SERGEANT OF CORRECTIONS [facility] Blood BLOOD SPECIMEN / Unknown Venipuncture / Unknown 08/16/2024 6:35 PM SERGEANT OF CORRECTIONS 08/16/2024 7:02 PM SERGEANT OF CORRECTIONS Anatoliy Wyman MD LAB - CHEMISTRY MICHAEL MONTGOMERY [facility] [address] [place] [address] * CULTURE BLOOD (08/15/2024 8:54 AM SERGEANT OF CORRECTIONS) Only the most recent of4 resultswithin the time period is included. Culture No growth day 5 LORENZO 08/20/2024 1:31 PM SERGEANT OF CORRECTIONS [facility] Blood PERIPHERAL BLOOD / Unknown Venipuncture / Unknown 08/15/2024 8:54 AM SERGEANT OF CORRECTIONS 08/15/2024 9:13 AM SERGEANT OF CORRECTIONS Amadeo Milner MD LAB - MICROBIOLOGY O RDERAJANETTE Performing Organization Address City/[facility]/ZIP Co de Phone Number [facility] [address] [place], [place] [address] [phone] * (ABNORMAL) HEMOGLOBIN A1C (08/14/2024 3:27 AM SERGEANT OF CORRECTIONS) Hemoglobin A1c 10.1(H) <5.7 % 08/14/2024 3:48 AM SERGEANT OF CORRECTIONS [facility] Estimated Average Glucose 243 mg/dL 08/14/2024 3:48 AM SERGEANT OF CORRECTIONS [facility] Blood BLOOD SPECIMEN / Unknown Venipuncture / Unknown 08/14/2024 3:27 AM SERGEANT OF CORRECTIONS 08/14/2024 3:37 AM SERGEANT OF CORRECTIONS Narrative [facility] - 08/14/2024 3:48 AM SERGEANT OF CORRECTIONS HbA1c Interpretation: Normal: < 5.7% Pre-diabetes: 5.7-6.4% [...] - CHEMISTRY MICHAEL MONTGOMERY Performing Organization Address [facility] Co de Phone Number [facility] [address] [place] [address] * STREP PNEUMONIAE ANTIGEN URINE (08/13/2024 5:17 PM SERGEANT OF CORRECTIONS) Streptococcus pneumoniae Antigen Urine Negative Negative 08/14/2024 8:17 AM SERGEANT OF CORRECTIONS [facility] Urine URINE / Unknown Collection / Unknown 08/13/2024 5:17 PM SERGEANT OF CORRECTIONS 08/13/2024 5:22 PM SERGEANT OF CORRECTIONS Narrative [facility] - 08/14/2024 8:17 AM SERGEANT OF CORRECTIONS Patients who have received the Streptococcus pneumoniae [...] - MICROBIOLOGY O RDERABLES Performing Organization Address City/[facility]/ZIP Co de Phone Number [facility] [address] [place] [address] [phone] * LEGIONELLA ANTIGEN URINE (08/13/2024 5:17 PM SERGEANT OF CORRECTIONS) Legionella Antigen Urine Negative Negative 08/14/2024 8:21 AM SERGEANT OF CORRECTIONS [facility] Urine URINE / Unknown Collection / Unknown 08/13/2024 5:17 PM SERGEANT OF CORRECTIONS 08/13/2024 5:22 PM SERGEANT OF CORRECTIONS Narrative [facility] - 08/14/2024 8:21 AM SERGEANT OF CORRECTIONS This assay detects Legionella pneumophila serogroup one (1) antigen. A negative test result does not rule out the possibility of Legionella infection due to other serogroups or species of Legionella. A positive result may indicate a recent or remote infection with serogroup 1. Alexus Ramirez MD LAB - MICROBIOLOGY O RDERABLES [facility] [address] [place] [address], [facility] [phone] * (ABNORMAL) RESPIRATORY PANEL WITH SARS-COV-2 BY PCR (STL) (08/13/2024 5:09 PM SERGEANT OF CORRECTIONS) Pathologist [facility] Adenovirus PCR Not detected Not detected 08/13/2024 11:30 PM SERGEANT OF CORRECTIONS [facility] Coronavirus 229E PCR Not detected Not detected 08/13/2024 11:30 PM SERGEANT OF CORRECTIONS [facility] Coronavirus HKU1 PCR Not detected Not detected 08/13/2024 11:30 PM SERGEANT OF CORRECTIONS [facility] Coronavirus NL63 PCR Not detected Not detected 08/13/2024 11:30 PM SERGEANT OF CORRECTIONS [facility] Coronavirus OC43 PCR Not detected Not detected 08/13/2024 11:30 PM SERGEANT OF CORRECTIONS [facility] COVID-19 PCR Not detected Not detected 08/13/2024 11:30 PM SERGEANT OF CORRECTIONS [facility] Human Metapneumovirus PCR Not detected Not detected 08/13/2024 11:30 PM SERGEANT OF CORRECTIONS [facility] Human Rhinovirus/Enterov irus PCR Not detected Not detected 08/13/2024 11:30 PM SERGEANT OF CORRECTIONS [facility] Influenza A PCR Not detected Not detected 08/13/2024 11:30 PM SERGEANT OF CORRECTIONS [facility] Influenza B PCR Not detected Not detected 08/13/2024 11:30 PM SERGEANT OF CORRECTIONS [facility] Parainfluenza Virus 1 PCR Not detected Not detected 08/13/2024 11:30 PM SERGEANT OF CORRECTIONS [facility] Parainfluenza Virus 2 PCR Not detected Not detected 08/13/2024 11:30 PM SERGEANT OF CORRECTIONS [facility] Parainfluenza Virus 3 PCR Not detected Not detected 08/13/2024 11:30 PM SERGEANT OF CORRECTIONS [facility] Parainfluenza Virus 4 PCR Not detected Not detected 08/13/2024 11:30 PM SERGEANT OF CORRECTIONS [facility] Respiratory Syncytial Virus PCR Detected(A) Not detected 08/13/2024 11:30 PM SERGEANT OF CORRECTIONS [facility] Bordetella parapertussis PCR Not detected Not detected 08/13/2024 11:30 PM SERGEANT OF CORRECTIONS [facility] Bordetella pertussis PCR Not detected Not detected 08/13/2024 11:30 PM SERGEANT OF CORRECTIONS [facility] Chlamydia pneumoniae PCR Not detected Not detected 08/13/2024 11:30 PM SERGEANT OF CORRECTIONS [facility] Mycoplasma pneumoniae PCR Not detected Not detected 08/13/2024 11:30 PM SERGEANT OF CORRECTIONS [facility] Microbiology SPECIMEN FROM NASOPHARYNGEAL STRUCTURE / Unknown Collection / Unknown 08/13/2024 5:09 PM SERGEANT OF CORRECTIONS 08/13/2024 5:20 PM SERGEANT OF CORRECTIONS Narrative [facility] - 08/13/2024 11:30 PM SERGEANT OF CORRECTIONS Contact and Droplet Precautions Required. This nucleic amplification assay has received FDA authorization via the [place] [employer]. Alexus Ramirez MD LAB - MICROBIOLOGY O RDMERISSA [facility] [address] [place] [address], [facility] [phone] * CULTURE MRSA (08/13/2024 5:09 PM SERGEANT OF CORRECTIONS) Culture Negative for methicillin-resist ant Staphylococcus aureus (MRSA) LORENZO 08/15/2024 8:16 AM SERGEANT OF CORRECTIONS [facility] Microbiology SPECIMEN FROM NASAL FOSSAE / Unknown Collection / Unknown 08/13/2024 5:09 PM SERGEANT OF CORRECTIONS 08/13/2024 5:21 PM SERGEANT OF CORRECTIONS Alexus Ramirez MD LAB - MICROBIOLOGY O RDERAJANETTE Performing Organization Address City/[facility]/ZIP Co de Phone Number [facility] [address] [place] [address], [facility] [phone] * (ABNORMAL) BCID PANEL (08/13/2024 5:08 PM SERGEANT OF CORRECTIONS) Staphylococcus epidermidis Detected (A) Not detected 08/15/2024 2:03 AM SERGEANT OF CORRECTIONS [facility] MECA/C (Methicillin-Resi stance Gene) Detected (A) Not detected 08/15/2024 2:03 AM SERGEANT OF CORRECTIONS [facility] Comment:Results indicate met hicillin-resistant Staphylococcus epidermidis. Methicillin-resistance detected. Blood PERIPHERAL BLOOD / Unknown Venipuncture / Unknown 08/13/2024 5:08 PM SERGEANT OF CORRECTIONS 08/13/2024 5:19 PM SERGEANT OF CORRECTIONS Narrative [facility] - 08/15/2024 2:03 AM SERGEANT OF CORRECTIONS Blood Culture ID Panel performed by LiveRamp multiplex PCR. The Test panel includes: Gram [...] and MREJ (methicillin-resistance - MRSA), NDM ([place] cuijtae-bnoe-xvouiynyd), OXA-48-like (oxacillinase beta-lactamase),Ashly/B (vancomycin-resistance), VIM (Texline Intergrom-Encoded Metallo beta-lactamase). Alexus Ramirez MD LAB - MICROBIOLOGY O RDERABLES [facility] [address] [place] [address], [facility] [phone] * PTT (08/13/2024 5:08 PM SERGEANT OF CORRECTIONS) [facility] PTT 28.4 23.0 - 38.4 sec 08/13/2024 5:43 PM SERGEANT OF CORRECTIONS [facility] Blood BLOOD SPECIMEN / Unknown Venipuncture / Unknown 08/13/2024 5:08 PM SERGEANT OF CORRECTIONS 08/13/2024 5:21 PM SERGEANT OF CORRECTIONS Narrative [facility] - 08/13/2024 5:43 PM SERGEANT OF CORRECTIONS Heparin Therapeutic Range for PTT: 69.0 - 110.0 seconds. Alexus Ramirez MD LAB - COAGULATION OR DERABLES Performing Organization Address [facility] Co de Phone Number [facility] [phone] [place] [phone] * PT-INR (08/13/2024 5:08 PM SERGEANT OF CORRECTIONS) Pathologist [facility] PT 14.1 12.1 - 14.8 sec 08/13/2024 5:43 PM SERGEANT OF CORRECTIONS [facility] INR 1.1 0.9 - 1.1 08/13/2024 5:43 PM SERGEANT OF CORRECTIONS [facility] Blood BLOOD SPECIMEN / Unknown Venipuncture / Unknown 08/13/2024 5:08 PM SERGEANT OF CORRECTIONS 08/13/2024 5:21 PM SERGEANT OF CORRECTIONS Narrative [facility] - 08/13/2024 5:43 PM SERGEANT OF CORRECTIONS Conventional Warfarin Anticoagulant Therapy: INR Reference Range: 2.0-3.0 Intensive Warfarin Anticoagulant Therapy: INR Reference Range: 2.5-3.5 Alexus Ramirez MD LAB - COAGULATION OR DERABLES Performing Organization Address City/[facility] Co de Phone Number [facility] [phone] [place] [address] * (ABNORMAL) DIFFERENTIAL MANUAL (08/13/2024 5:08 PM SERGEANT OF CORRECTIONS) Pathologist [facility] Neutrophil % 90(H) 41 - 74 % 08/13/2024 6:34 PM SERGEANT OF CORRECTIONS [facility] Lymphocyte % 4(L) 17 - 47 % 08/13/2024 6:34 PM SERGEANT OF CORRECTIONS [facility] Monocyte % 1(L) 3 - 11 % 08/13/2024 6:34 PM SERGEANT OF CORRECTIONS [facility] Basophil % 1 0 - 2 % 08/13/2024 6:34 PM SERGEANT OF CORRECTIONS [facility] Myelocyte % 3(H) 0% % 08/13/2024 6:34 PM SERGEANT OF CORRECTIONS [facility] Promyelocyte % 1(H) 0% % 08/13/2024 6:34 PM SERGEANT OF CORRECTIONS [facility] Neutrophil Absolute 17.91(H) 1.60 - 7.50 x10E9/L 08/13/2024 6:34 PM SERGEANT OF CORRECTIONS [facility] Lymphocyte Absolute 0.80(L) 1.00 - 4.40 x10E9/L 08/13/2024 6:34 PM SERGEANT OF CORRECTIONS [facility] Monocyte Absolute 0.20 0.15 - 1.00 x10E9/L 08/13/2024 6:34 PM SERGEANT OF CORRECTIONS [facility] Basophil Absolute 0.20(H) 0.00 - 0.13 x10E9/L 08/13/2024 6:34 PM SERGEANT OF CORRECTIONS [facility] RBC Morphology REVIEWED 08/13/2024 6:34 PM SERGEANT OF CORRECTIONS [facility] Blood BLOOD SPECIMEN / Unknown Venipuncture / Unknown 08/13/2024 5:08 PM SERGEANT OF CORRECTIONS 08/13/2024 5:21 PM SERGEANT OF CORRECTIONS Alexus Ramirez MD LAB - HEMATOLOGY ORD ERABLES [facility] [address] [place] [address] * (ABNORMAL) CBC W AUTO DIFFERENTIAL (08/13/2024 5:08 PM SERGEANT OF CORRECTIONS) WBC 19.9(H) 4.0 - 10.7 x10E9/L 08/13/2024 6:34 PM SERGEANT OF CORRECTIONS [facility] RBC Count 3.41(L) 3.90 - 5.20 x10E12/L 08/13/2024 6:34 PM SERGEANT OF CORRECTIONS [facility] Hemoglobin 10.1(L) 11.9 - 15.8 g/dL 08/13/2024 6:34 PM SERGEANT OF CORRECTIONS [facility] Hematocrit 31.0(L) 34.8 - 46.1 % 08/13/2024 6:34 PM SERGEANT OF CORRECTIONS [facility] MCV 90.9 80.0 - 98.0 fL 08/13/2024 6:34 PM [employer] [facility] MCH 29.6 26.7 - 33.6 pg 08/13/2024 6:34 PM [facility] MCHC 32.6 31.7 - 36.3 g/dL 08/13/2024 6:34 PM [facility] RDW-CV 15.2(H) 11.3 - 14.8 % 08/13/2024 6:34 PM [facility] Platelet Count 340 150 - 420 x10E9/L 08/13/2024 6:34 PM [facility] MPV 11.4 7.8 - 11.4 fL 08/13/2024 6:34 PM [facility] Blood BLOOD SPECIMEN / Unknown Venipuncture / Unknown 08/13/2024 5:08 PM [employer] [employer] 08/13/2024 5:21 PM [facility] [employer] Alexus Ramirez MD LAB - HEMATOLOGY ORD ERABLES Performing Organization Address [facility] Co de Phone Number [facility] [phone] [place] [id number] * B-TYPE NATRIURETIC PEPTIDE (08/13/2024 5:08 PM [employer] [employer]) Pathologist [facility] BNP 43 <=100 pg/mL 08/13/2024 5:45 PM [facility] Blood BLOOD SPECIMEN / Unknown Venipuncture / Unknown 08/13/2024 5:08 PM [employer] [employer] 08/13/2024 5:21 PM [employer] Alexus Ramirez MD LAB - CHEMISTRY ORDE RABLES Performing Organization Address [facility] Co de Phone Number [facility] [address] [place] [address] * (ABNORMAL) COMPREHENSIVE METABOLIC PANEL (08/13/2024 5:08 PM SERGEANT OF CORRECTIONS) Glucose 396(H) 70 - 99 mg/dL 08/13/2024 5:39 PM [employer]GEANT OF CORRECTIONS [facility] Sodium 135(L) 136 - 145 mmol/L 08/13/2024 5:39 PM [facility] Potassium 5.0 3.5 - 5.1 mmol/L 08/13/2024 5:39 PM SERGEANT OF CORRECTIONS [facility] Chloride 99 98 - 107 mmol/L 08/13/2024 5:39 PM [facility] CO2 26 22 - 29 mmol/L 08/13/2024 5:39 PM [facility] Calcium 9.2 8.4 - 10.4 mg/dL 08/13/2024 5:39 PM [facility] Anion Gap 10 6 - 16 mmol/L 08/13/2024 5:39 PM [facility] BUN 28(H) 5.3 - 18.7 mg/dL 08/13/2024 5:39 PM [facility] Creatinine 0.89 0.57 - 1.11 mg/dL 08/13/2024 5:39 PM [facility] Alkaline Phosphatase 111 40 - 150 U/L 08/13/2024 5:39 PM [facility] ALT 40 0 - 55 U/L 08/13/2024 5:39 PM [facility] AST 15 5 - 34 U/L 08/13/2024 5:39 PM [facility] Protein Total 6.8 6.4 - 8.3 gm/dL 08/13/2024 5:39 PM [facility] Albumin 2.6(L) 3.4 - 5.0 gm/dL 08/13/2024 5:39 PM [facility] Bilirubin Total 0.2 0.2 - 1.2 mg/dL 08/13/2024 5:39 PM [facility] eGFR by CKD-EPI 80(L) >=90 mL/min/1.7 3 m2 08/13/2024 5:39 PM [facility] Blood BLOOD SPECIMEN / Unknown Venipuncture / Unknown 08/13/2024 5:08 PM [facility] [employer] CORRECTIONS 08/13/2024 5:21 PM [facility] Alexus Ramirez MD LAB - CHEMISTRY MICHAEL MONTGOMERY [facility] [address] [place] [address] * PHOSPHORUS BLOOD (08/13/2024 5:08 PM [facility]) [facility] Signature Phosphorus 3.3 2.5 - 4.5 mg/dL 08/13/2024 5:39 PM [employer]GE[employer] OF CORRECTIONS [facility] Blood BLOOD SPECIMEN / Unknown Venipuncture / Unknown 08/13/2024 5:08 PM [employer] CORRECTIONS 08/13/2024 5:21 PM [facility] [employer] Alexus Ramirez MD LAB - CHEMISTRY MICHAEL MONTGOMERY Performing Organization Address [facility] Co de Phone Number [facility] [phone] [place] [phone] * MAGNESIUM BLOOD (08/13/2024 5:08 PM SERGE[facility] OF CORRECTIONS) Magnesium 2.0 1.6 - 2.6 mg/dL 08/13/2024 5:39 PM [employer]GE[employer] OF CORRECTIONS [facility] Blood BLOOD SPECIMEN / Unknown Venipuncture / Unknown 08/13/2024 5:08 PM [employer]GE[employer] CORRECTIONS 08/13/2024 5:21 PM [facility] [employer]RECTIONS Alexus Ramirez MD LAB - CHEMISTRY MICHAEL MONTGOMERY Performing Organization Address [facility] Co de Phone Number [facility] [phone] [place] [phone] * LIPASE BLOOD (08/13/2024 5:08 PM [facility]GE[facility] OF CORRECTIONS) Lipase 25 <60 U/L 08/13/2024 5:39 PM [employer]GE[employer] OF CORRECTIONS [facility] Blood BLOOD SPECIMEN / Unknown Venipuncture / Unknown 08/13/2024 5:08 PM [employer] CORRECTIONS 08/13/2024 5:21 PM [facility] [employer]CTIONS Alexus Ramirez MD LAB - CHEMISTRY MICHAEL MONTGOMERY Performing Organization Address [facility] de Phone Number [facility] [phone] [place] [phone] * LACTIC ACID BLOOD (08/13/2024 5:08 PM SERGE[facility] OF CORRECTIONS) Lactic Acid 1.5 <=2.0 mmol/L 08/13/2024 5:39 PM [employer]GE[employer] OF CORRECTIONS [facility] Blood BLOOD SPECIMEN / Unknown Venipuncture / Unknown 08/13/2024 5:08 PM [employer]GE[employer] CORRECTIONS 08/13/2024 5:21 PM [facility] [employer]RECTIONS Alexus Ramirez MD LAB - CHEMISTRY MICHAEL MONTGOMERY Performing Organization Address [facility] Co de Phone Number [facility] [address] [place] [address] * (ABNORMAL) BLOOD GASES ARTERIAL (08/13/2024 4:16 PM SERGE[facility] OF CORRECTIONS) pH Arterial 7.47(H) 7.35 - 7.45 pH 08/13/2024 4:34 PM [facility] CORRECTIONS [facility] pO2 Arterial 99 80 - 100 mmHg 08/13/2024 4:34 PM [facility] CORRECTIONS [facility] pCO2 Arterial 39 35 - 45 mmHg 08/13/2024 4:34 PM [facility] CORRECTIONS [facility] HCO3 Arterial 28.4(H) 22.0 - 26.0 mmol/L 08/13/2024 4:34 PM [facility] OF CORRECTIONS [facility] BE Arterial 4.5(H) -2.0 - 2.0 mmol/L 08/13/2024 4:34 PM [facility] CORRECTIONS [facility] O2 Saturation Arterial 99 90 - 100 % 08/13/2024 4:34 PM [facility] CORRECTIONS [facility] Sample Site Right RA 08/13/2024 4:34 PM [facility]GE[facility] OF CORRECTIONS [facility] Mode APVcmv 08/13/2024 4:34 PM [facility]GE[facility] OF CORRECTIONS [facility] O2 Device VENT 08/13/2024 4:34 PM [facility]GE[facility] OF CORRECTIONS [facility] FI O2 50.0 % 08/13/2024 4:34 PM [facility]GE[facility] OF CORRECTIONS [facility] Mechanical Tidal Volume (mL) 380 08/13/2024 4:34 PM [facility] OF CORRECTIONS [facility] Mechanical Respiratory Rate (bpm) 22 08/13/2024 4:34 PM [facility]GE[facility] OF CORRECTIONS [facility] PEEP (cmH2O) 10 08/13/2024 4:34 PM [facility]GE[facility] OF CORRECTIONS [facility] Blood, arterial ARTERIAL BLOOD SPECIMEN / Unknown 08/13/2024 4:16 PM SERGE[employer] OF CORRECTIONS 08/13/2024 4:16 PM [facility]GE[employer] OF CORRECTIONS Alexus Ramirez MD LAB - BLOOD GASES OR DERABLES Performing Organization Address [facility]/ZIP Co de Phone Number [facility] [address] [place] [address], [place] [phone] * XR CHEST 1VW PORTABLE (08/13/2024 4:04 PM SERGEANT OF CORRECTIONS) Anatomical Region Laterality Modality Chest Computed Radiogr aphy 08/13/2024 4:10 PM [employer] OF CORRECTIONS Impressions 08/13/2024 4:12 PM SERGEANT OF CORRECTIONS IMPRESSION: Multiple tubing placements as noted above. Subtle linear streak is present in the left lung. Also the diaphragm.? Atelectasis or scarring. Unfortunately, we have no previous chest imaging studies available at this time. > Interpreting Provider: Ko Olguin MD on 08/13/2024 4:12 PM Narrative 08/13/2024 4:12 PM [facility] [employer] CORRECTIONS PROCEDURE: XR CHEST 1VW PORTABLE DATE/TIME OF [...] to the level of the right atrium. nut dehydrator operator wires obscure the chest bilaterally. Heart size [...] extendingto the level of the right atrium. nut dehydrator operator wires obscure the chest bilaterally. Heart size [...] 3:54 PM 08/18/2024 6:24 PM Care Teams Retort Furnace Operator Relationship Specialty Start Date End Date Kishor Saleh MD [address] [facility] [place] [address] PCP - General Internal Medicine 07/31/23
[2024-09-23] MEDS: SODIUM CHLORIDE 0.9% IV 1,000 ML 500 ML IV CONT (00:16)
[2024-09-23 00:17] LABS: CRP 0.5 mg/dL (<1.0)
[2024-09-23] MEDS: SODIUM CHLORIDE 0.9% IV 1,000 ML 999 ML IV CONT (00:17)
--- NOTE | 2024-09-23 00:52 | PM.IMHP ---
H&P: HPI History of Present Illness Date/Time: 09/23/24 00:52 Chief Complaint: Dyspnea, tachycardia, hypoxia at home Narrative: This is a 49-year-old female patient with a history of insulin-dependent type 2 diabetes, hypertension, obstructive sleep apnea, elevated cholesterol, vasculitis and autoimmune disorder who was recently admitted to the hospital about a month ago with pneumonia requiring intubation. Patient stated that she was breathing better after discharge until about a week ago when she started having increased difficulty breathing especially when bending over or with significant activity. Patient also reports that it feels difficult to get a full deep breath for this last week although sometimes she will end up getting 1 good deep breath. She denies fever or chills. She reports that prior to coming to the ER today her oxygen level dropped to 75% at home after she bent over to pick something up. She states that laying on her the right side of her body worsens her difficulty breathing. She states that her activity tolerance has decreased somewhat as well. Patient remains on oral steroids and has been on prednisone for months. She also gets IV infusions of Rituxan and has been on methotrexate. During previous ICU admission patient tested positive for RSV. On this visit her influenza RSV and COVID test are negative. In the emergency department chest x-ray showed elevation of the right hemidiaphragm with mild atelectasis at the right lung base. CTA was obtained negative for pulmonary embolus continues to demonstrate elevation of right hemidiaphragm with mild atelectasis at the right lung base. She was started on Rocephin and azithromycin for potential of infection/pneumonia in the location of this atelectasis. I reviewed the images and compared to prior CT scan and it does appear the right hemidiaphragm is a bit higher than it was previously. Previous nasal swabs have been negative for MRSA. Labs show white blood cell count of 16.8 but she has been chronically elevated while being on steroids. Lactic acid was 2.7 so she was treated with IV fluid bolus and started on Rocephin and azithromycin. Patient reports that she finally came to the ER today due to the low oxygen saturation as well as elevation of her heart rate to 145 while bending over. Review of Systems Review of Systems: All systems reviewed & are unremarkable except as noted in HPI and below PMFSH Past Medical History Medical History Vasculitis Depression JEREMY on CPAP Hypertension Hypercholesterolemia Diabetes Surgical History Surgical History H/O arthroscopy H/O myomectomy Family History Family History Mother Diabetes mellitus Myocardial infarction Uterine cancer Father Cancer of blood vessel Sibling Diabetes mellitus Social History Social History Smoking status: Never smoker Alcohol intake: current Drinks per week: 1 Substance use: never Substance use type: does not use Do You Feel Safe in your Home?: Yes Lack of Transportation: No Lack of Food: Never True Current Housing: I Have Housing Concerned About Future Housing: No Difficulty Paying Gas/Electric Bills: No Difficulty Paying for Meds: No Currently Unemployed: No Education: High School Diploma/GED Difficulty w/ Childcare or Family Care: No Spiritual care concerns: No Meds Home Medications and Allergies Home Medications ?Medication ?Instructions ?Recorded ?Confirmed ?Type atorvastatin 20 mg tablet 20 mg PO HS 10/15/20 09/23/24 History loratadine 10 mg tablet (Claritin) 10 mg PO DAILY 10/15/20 09/23/24 History montelukast 10 mg tablet 10 mg PO HS 10/15/20 09/23/24 History insulin lispro-aabc 100 unit/mL 1 sliding scale dose subcut AC 05/25/23 09/23/24 History subcutaneous pen (Lyumjev KwikPen U-100 Insulin) tirzepatide 5 mg/0.5 mL 10 mg subcut WEEKLY 05/25/23 09/23/24 History subcutaneous pen injector (Mounjaro) venlafaxine 150 mg 150 mg PO QPM 05/25/23 09/23/24 History capsule,extended release 24 hr tramadol 50 mg tablet 50 mg PO Q4H PRN Severe pain #15 05/29/23 09/23/24 Rx tabs albuterol sulfate 2.5 mg/3 mL 2.5 mg inhalation DAILY PRN 08/10/23 09/23/24 History (0.083 %) solution for nebulization Shortness Of Breath cetirizine 10 mg tablet (All Day 10 mg PO DAILY 08/10/23 09/23/24 History Allergy (cetirizine)) ergocalciferol (vitamin D2) 50,000 unit PO .COMPLEX 08/10/23 09/23/24 History fluticasone propionate 50 1 spray intranasal DAILY PRN 08/10/23 09/23/24 History mcg/actuation nasal allergy symptoms spray,suspension prednisone 20 mg tablet 40 mg PO DAILY@0800 08/10/23 09/23/24 History cyclobenzaprine 10 mg tablet 10 mg PO HS 07/31/24 09/23/24 History diclofenac sodium 75 mg 75 mg PO BID 07/31/24 09/23/24 History tablet,delayed release folic acid 1 mg tablet 1 mg PO DAILY 07/31/24 09/23/24 History gabapentin 300 mg capsule 300 mg PO TID 07/31/24 09/23/24 History hydroxychloroquine 200 mg tablet 400 mg PO HS 07/31/24 09/23/24 History insulin glargine 100 unit/mL (3 45 unit subcut BID 07/31/24 09/23/24 History mL) subcutaneous pen (Lantus Solostar U-100 Insulin) lisinopril 20 mg tablet 20 mg PO DAILY 07/31/24 09/23/24 History methotrexate sodium 2.5 mg tablet 12.5 mg PO WEEKLY 07/31/24 09/23/24 History pantoprazole 40 mg tablet,delayed 40 mg PO DAILY 07/31/24 09/23/24 History release acetaminophen 500 mg tablet 1,000 mg PO BID 09/23/24 09/23/24 History famotidine 20 mg tablet (Acid 20 mg PO HS 09/23/24 09/23/24 History Controller) magnesium 200 mg tablet 400 mg PO DAILY 09/23/24 09/23/24 History magnesium salicylate 162.5 1 tablet PO DAILY 09/23/24 09/23/24 History mg-caffeine 50 mg tablet (Diurex) potassium 99 mg tablet 99 mg PO HS 09/23/24 09/23/24 History Allergies Allergy/AdvReac Type Severity Reaction Status Date / Time amoxicillin AdvReac Unknown Nausea and Verified 07/31/24 08:23 Vomiting glipizide AdvReac Unknown NAUSEA AND Verified 02/06/24 14:29 VOMITING hydrocodone AdvReac Unknown Nausea and Verified 02/06/24 14:29 Vomiting metformin AdvReac Unknown Nausea and Verified 02/06/24 14:29 Vomiting Vital Signs Vital Signs - 24 hr 09/22/24 20:28 09/22/24 22:47 09/22/24 22:47 Temperature 36.4 C Pulse Rate 114 H 102 H Respiratory Rate 18 Blood Pressure 188/96 H Pulse Oximetry 97 97 Oxygen Delivery Room Air Room Air 09/22/24 22:52 Temperature Pulse Rate 104 H Respiratory Rate 17 Blood Pressure 169/86 H Pulse Oximetry 97 Oxygen Delivery Exam Narrative: GENERAL: awake, alert, oriented, obese, mild dyspnea noted HEAD: Normocephalic, atraumatic. NECK: Supple. No adenopathy, no masses. RESPIRATORY: Airway patent, respirations mildly labored. Clear to auscultation bilaterally, no rales, no rhonchi, no wheezing at time of examination. CARDIOVASCULAR: Tachycardia without murmurs, rubs, or gallops. Peripheral pulses 2+ and equal bilaterally, bilateral lower extremity edema that patient reports is baseline ABDOMINAL: Soft, nontender, nondistended, Normoactive BS. MUSCULOSKELETAL: Moves all extremities. Strength/ROM intact without gross deformities. Ambulatory with steady gait SKIN: Warm, dry, pallor. Chronic erythema lower extremities (vasculitis/PVD) NEURO: A&O X3. Speech clear. Cranial nerves II-XII grossly intact, No ataxic movements. PSYCHIATRIC: Appropriate mood and affect. Normal interaction. H&P: Results Labs Labs: Short CBC 09/22/24 Range/Units 22:46 WBC 16.8 H (4.5-10.0) K/mm3 Hgb 11.3 L (12.0-15.0) g/dL Hct 35.9 L (37.0-47.0) % Plt Count 394 H (150-375) k/mm3 BMP 09/22/24 22:46 Sodium 138 Potassium 4.2 Chloride 99 Carbon Dioxide 28 BUN 20 H D Creatinine 0.48 L Glucose 212 H Calcium 9.4 Cardiac Enzymes 09/22/24 Range/Units 22:46 Troponin I < 0.012 (0.000-0.034) ng/mL Liver Function 09/22/24 Range/Units 22:46 Total Bilirubin 0.6 (0.2-1.3) mg/dL AST 29 (14-36) U/L ALT 72 H (6-35) U/L Alkaline Phosphatase 66 (38-126) U/L Albumin 4.4 (3.5-5.1) g/dL Pulse Oximetry SpO2 results: 96-100% on room air Attestation: I personally reviewed and interpreted this pulse oximetry as follows: Interpretation: No need for supplemental oxygenation at this time Imaging Chest x-ray: Radiologist's impression: EXAMINATION: XR chest 2V DATE: 09/22/2024 20:56 INDICATION: Shortness of breath. TECHNIQUE: Frontal and lateral views of the chest were obtained. COMPARISON: Chest single view 08/13/2024 FINDINGS: There is elevation of right hemidiaphragm. There is mild atelectasis at right lung base. No pleural effusion or pneumothorax. The heart size is normal. IMPRESSION: 1. Elevation of right hemidiaphragm with mild atelectasis at right lung base. Reviewed, dictated and finalized at location A. VITIES THERAPIST CT scan - chest: Radiologist's impression: EXAMINATION: CTA chest PE protocol DATE: 09/22/2024 23:44 INDICATION: Shortness of breath. TECHNIQUE: Computed tomography angiography (CTA) of the chest was performed with 100 mL Omnipaque-350 intravenous contrast timed to evaluate the pulmonary arteries. Coronal maximum intensity projection 3D-reconstructions were created by the technologist. Automated exposure control and iterative reconstruction technique were employed. The dose-length product was 1173.22 mGy-cm. COMPARISON: Chest CT 08/12/2024 FINDINGS: There is elevation of right hemidiaphragm. There is mild atelectasis in inferior right lung. No pleural effusion. The heart size is normal. No pericardial effusion. There is no pulmonary embolus. There is moderate thoracic spondylosis. IMPRESSION: 1. No pulmonary embolus. 2. Elevation of right hemidiaphragm with mild atelectasis at right lung base. Reviewed, dictated and finalized at location A. VITIES THERAPIST Assessment and Plan Assessment and plan (1) Elevated hemidiaphragm: Code(s): J98.6 - Disorders of diaphragm Status: Acute Assessment and Plan: -Apparent new imaging finding with associated difficulty breathing, hypoxia and tachycardia with bending over -Mild right basal atelectasis on CT/CXR, ER started treatment for pneumonia since patient is immunocompromised -One week history of not feeling like she can get a deep breath most of the time -Worse when laying on right side -Patient recently intubated a month ago but was doing better at home until one week ago -No Botox injections -On Rituxan and methotrexate for autoimmune condition, uncertain significance related to this concern -Ordered Sniff test with 2 view CXR -Consult Pulmonology in the morning (2) Dyspnea: Code(s): R06.00 - Dyspnea, unspecified Status: Acute Assessment and Plan: -Negative for Flu/RSV/Covid -See above -On room air at rest, was 75% saturation at home after bending over to pick something up (3) Hypertension: Qualifiers: Hypertension type: unspecified Qualified Code(s): I10 - Essential (primary) hypertension Code(s): I10 - Essential (primary) hypertension Status: Acute Assessment and Plan: -Blood pressure elevated, likely wrong size BP cuff contributing to this -Patient reports better BP at home on lisinopril daily (4) Diabetes mellitus, insulin dependent (IDDM), uncontrolled: Status: Acute Assessment and Plan: -Glucose elevated, patient has been on prednisone since May 2024 -ACHS fingerstick glucose with high dose SSI -Resume home insulin or equivalent once Med Rec completed -Diet: Heart healthy with carb consistent (5) Morbidly obese: Code(s): E66.01 - Morbid (severe) obesity due to excess calories Status: Chronic Assessment and Plan: -Contributing factor to note (6) JEREMY on CPAP: Code(s): G47.33 - Obstructive sleep apnea (adult) (pediatric) Status: Chronic Assessment and Plan: -Autopap or home unit ordered (7) Lactic acidosis: Code(s): E87.20 - Acidosis, unspecified Status: Acute Assessment and Plan: -Lactic acid 2.7 on initial labs -Received IV fluids and antibiotics, treated for sepsis in ER -More likely related to diabetes than actually sepsis Plan -Admit to med/surg with tele -Sniff test and Pulmonology consult -Continue home medications when verified Quality VTE Prophylaxis VTE prophylaxis: pharmacologic ordered (Lovenox 40 mg BID) Hospitalist MIPS Advance Care Plan I have confirmed that the patient's Advanced Care Plan is present, code status is documented, or surrogate decision maker is listed in patient medical record.: Yes Medication Reconciliation I have utilized all available resources to obtain, update and review the patients current medications (includes all prescriptions, OTC, herbals, cannabis, and nutritional supplements).: Yes
[2024-09-23] MEDS: IPRATROPIUM 0.5 MG/ALBUTEROL SULFATE 2.5 MG AMPUL.NEB 3 ML INHALATION (01:15)
[2024-09-23 03:27] LABS: Reflex Lactic Acid Yes or No Add Lactic
[2024-09-23 04:21] LABS: Influenza A QL RT-PCR Negative (Negative); Influenza B QL RT-PCR Negative (Negative); RSV RNA, RT-PCR Negative (Negative); SARS-CoV-2 RNA PCR Negative (Negative)
[2024-09-23 04:26] LABS: Free T4 Free Thyroxine Reflex 0.92 ng/dL (0.78-2.19)
[2024-09-23 04:27] LABS: Color Urine Yellow (Yellow)
[2024-09-23 04:28] LABS: Add Urine Microscopic? YES; Appearance Urine Clear (Clear); Bilirubin Urine Negative (Negative); Blood Urine Negative (Negative); Glucose Urine UA Negative (Negative); Ketones Urine Negative (Negative); Leukocyte Esterase Ur Negative LEU/UL (Negative); Nitrate Urine Negative (Negative); Protein Urine 2+ mg/dL (Negative); Urobilinogen Urine 0.2 mg/dL (<2.0); pH Urine 6.5 (5.0-9.0)
[2024-09-23 04:44] LABS: Bacteria Urine None Seen /hpf; Non Pathogenic Casts 0-2; RBC Urine 0-2 /hpf (0-2); Squamous Epithelial Cell Urine None Seen /hpf (Few); WBC Urine 0-5 /hpf (0-3)
[2024-09-23] MEDS: AZITHROMYCIN 500 MG/NS 250 ML 500 MG/250 ML BAG 250 MG IVPB (04:58)
--- NOTE | 2024-09-23 05:44 | ADMGEN ---
This patient, Camila Huitron, was admitted to 2 Medical Room 240-. Patient/family oriented to hospital policies and general routines including ID bracelet, bed and alarms, visiting hours, pain management, procedures, bathroom and other care routines, personal items, smoking policy, room service/diet, and visiting hours. Information on how to activate the Rapid Response Team has been discussed. Patient/Family are encouraged to report perceived risks to care and to ask questions if they do not understand what they are told or what they should do.
[2024-09-23 07:58] LABS: Glucose Point of Care 133 mg/dl (65-105)
[2024-09-23 08:31] LABS: Basophils Absolute Auto 0.1 K/mm3 (0.0-0.1); Basophils Percent Auto 0.3 % (0.2-1.2); Eosinophils Percent Auto 0.1 % (0-4.4); Hematocrit 34.7 % (37.0-47.0); Hemoglobin 10.8 g/dL (12.0-15.0); Immature Granulocyte Absolute 0.12 K/mm3 (0.00-0.031); Immature Granulocyte Percent A 0.8 % (0-0.5); Lymphocytes Absolute Auto 1.81 K/mm3 (0.9-3.2); Lymphocytes Percent Auto 12.4 % (18.3-44.2); Mean Corpuscular HGB Conc 31.1 g/dl (32-36); Mean Corpuscular Hemoglobin 29.5 pg (26-34); Mean Corpuscular Volume 94.8 fl (80-100); Mean Platelet Volume 9.5 fl (7.4-10.4); Monocytes Absolute Auto 1.2 K/mm3 (0.1-0.6); Monocytes Percent Auto 8.2 % (2.6-8.5); Neutrophils Absolute Auto 11.5 K/mm3 (1.3-6.7); Neutrophils Percent Auto 78.2 % (45.5-73.1); Platelet Count Result 404 k/mm3 (150-375); Red Blood Count 3.66 M/mm3 (4.2-5.4); Red Cell Distribution Width 16.1 % (11.5-14.5); White Blood Count 14.6 K/mm3 (4.5-10.0)
[2024-09-23 08:42] LABS: Lactic Acid 2.6 mmol/L (0.7-2.0)
[2024-09-23 08:43] LABS: Alanine Aminotransferase 62 U/L (6-35); Albumin Level 4.1 g/dL (3.5-5.1); Alkaline Phosphatase 52 U/L (38-126); Anion Gap 7 mmol/L (4-12); Aspartate Amino Transferase 21 U/L (14-36); Bilirubin,Total 0.6 mg/dL (0.2-1.3); Blood Urea Nitrogen 15 mg/dL (7-17); Calcium 9.1 mg/dL (8.4-10.2); Carbon Dioxide 30 mmol/L (22-30); Chloride 102 mmol/L (98-107); Estimated CRCL calculation 156 ml/min; Estimated Glomerular Filt Rate > 60; Glucose 141 mg/dL (65-110); Magnesium 1.9 mg/dL (1.6-2.3); Phosphorus 3.8 mg/dL (2.5-4.5); Potassium 3.7 mmol/L (3.4-5.0); Sodium 139 mmol/L (137-145)
[2024-09-23 08:55] LABS: Procalcitonin 0.1 ng/mL
[2024-09-23 09:16] LABS: Hemoglobin A1C 7.8 % (<5.7)
--- NOTE | 2024-09-23 10:03 | P.CONPL_ITS ---
Assessment and Plan Assessment and plan (1) JEREMY on CPAP: Code(s): G47.33 - Obstructive sleep apnea (adult) (pediatric) Status: Chronic (2) Shortness of breath: Code(s): R06.02 - Shortness of breath Status: Acute Assessment and Plan: A 49-year-old morbidly obese female with sleep-disordered breathing managed with auto CPAP, autoimmune disease chronically on immunosuppressive treatment, a recent history of bilateral pneumonia treated with mechanical ventilation and a 7-day ICU stay last month, and insulin-dependent diabetes mellitus, presented with a one-week history of exertional dyspnea. Diagnostic imaging has revealed a new elevation of the right hemidiaphragm, accompanied by mild discoid atelectasis in the right lower lobe. The patient exhibits no signs of a respiratory infection and is currently being treated for a possible lower respiratory tract infection. On physical examination, her lungs are clear, and there is no evidence of paradoxical abdominal movement when supine. The clinical findings, along with imaging results, suggest the new right hemidiaphragm elevation could be due to diaphragm paralysis. This is a new development, as previous chest X-rays did not show diaphragm elevation. The left diaphragm appears normal on imaging. There is no history of recent cervical spine injury or other conditions that might explain diaphragm paralysis. Plan: Proceed with a sniff test to confirm right hemidiaphragm paralysis. The patient continues to use her home auto CPAP at night, and she reports no symptoms indicating uncontrolled sleep-disordered breathing prior to this hospitalization. Arrange for an ApneaLink study on home auto CPAP to assess if supplemental oxygen or a different ventilatory mode is necessary, particularly if there is evidence of abnormal nocturnal oxyhemoglobin desaturation. Continue with DVT prophylaxis as previously ordered. Given the absence of signs of a lower respiratory tract infection, it is recommended to discontinue antibiotic therapy. We will continue to monitor the patient in collaboration with your team. (3) Elevated hemidiaphragm: Code(s): J98.6 - Disorders of diaphragm Status: Acute (4) Diabetes mellitus, insulin dependent (IDDM), uncontrolled: Status: Acute (5) Morbidly obese: Code(s): E66.01 - Morbid (severe) obesity due to excess calories Status: Chronic (6) Vasculitis: Code(s): I77.6 - Arteritis, unspecified Status: Acute History of Present Illness History of Present Illness Consult date: 09/23/24 Chief complaint: sepsis, shortness of breath, pneumonia Narrative: A 49-year-old female presented with a one-week history of exertional dyspnea. Her past medical history is notable for morbid obesity, sleep-disordered breathing managed with auto CPAP, a history of autoimmune disease requiring chronic high-dose steroids, and a recent hospitalization for bilateral pneumonia with intubation and mechanical ventilation last month. The patient was in her usual state of health until late July of this year, when she exhibited signs of a respiratory infection. She was diagnosed with bilateral pneumonia, required intubation, and was treated in the intensive care unit for 7 days before being transferred to a tertiary center. She remained on mechanical ventilation for an additional day at [facility]. Following improvement of her bilateral pneumonia, she continued to recover as an outpatient until approximately one week ago, when she began experiencing exertional dyspnea, as well as dyspnea when supine or bending over. She denied other respiratory symptoms such as fever, chills, hemoptysis, wheezing, or lower extremity edema. The patient uses her auto CPAP nightly and reports good sleep quality. Although she had a sleep study several years ago, the specific pressure range of her auto CPAP is unknown. She denied any worsening of sleep quality in the past week since the onset of exertional dyspnea. In the emergency room, a chest X-ray and CT PA revealed a new elevation of the right hemidiaphragm, with minimal atelectasis in the right lower lobe, findings that are new compared to previous X-rays from last month. Regarding her autoimmune disease, the patient is on immunosuppressive treatment with steroids and Rituxan. The disease manifested as a reddish rash on her right thigh and has not been fully characterized. Her wringer machine operator is considering a diagnosis of vasculitis or rheumatoid arthritis. She is currently under the care of a wringer machine operator at the arthritis center. Her medical history also includes hypertension and diabetes mellitus, for which she is on insulin therapy. She is a never-smoker and has no history of asthma or exposure to harmful airborne substances. Review of Systems 2 Review of Systems: Patient has gained approximately 10 lb over the last year while on high-dose steroids. She sleeps with the head of the bed slightly elevated. She has no history of a nasal allergies. She has occasional acid reflux symptoms and using times [id number]. She has no history of abdominal pain. She has no urinary complaints. She has no history of thyroid disease. She has history of anxiety depression. The remainder of the 12 point system review is negative. [facility] Past Medical History Medical History Vasculitis Depression JEREMY on CPAP Hypertension Hypercholesterolemia Diabetes Surgical History Surgical History H/O arthroscopy H/O myomectomy Family History Family History Mother Diabetes mellitus Myocardial infarction Uterine cancer Father Cancer of blood vessel Sibling Diabetes mellitus Social History Social History Smoking status: Never smoker Alcohol intake: current Drinks per week: 1 Substance use: never Substance use type: does not use Do You Feel Safe in your Home?: Yes Lack of Transportation: No Lack of Food: Never True Current Housing: I Have Housing Concerned About Future Housing: No Difficulty Paying Gas/Electric Bills: No Difficulty Paying for Meds: No Currently Unemployed: No Education: High School Diploma/GED Difficulty w/ Childcare or Family Care: No Spiritual care concerns: No Meds Home Medications and Allergies Home Medications ?Medication ?Instructions ?Recorded ?Confirmed ?Type atorvastatin 20 mg tablet 20 mg PO HS 10/15/20 09/23/24 History loratadine 10 mg tablet (Claritin) 10 mg PO DAILY 10/15/20 09/23/24 History montelukast 10 mg tablet 10 mg PO HS 10/15/20 09/23/24 History insulin lispro-aabc 100 unit/mL 1 sliding scale dose subcut AC 05/25/23 09/23/24 History subcutaneous pen (Lyumjev KwikPen U-100 Insulin) tirzepatide 5 mg/0.5 mL 10 mg subcut WEEKLY 05/25/23 09/23/24 History subcutaneous pen injector (Jewellro) venlafaxine 150 mg 150 mg PO QPM 05/25/23 09/23/24 History capsule,extended release 24 hr tramadol 50 mg tablet 50 mg PO Q4H PRN Severe pain #15 05/29/23 09/23/24 Rx tabs albuterol sulfate 2.5 mg/3 mL 2.5 mg inhalation DAILY PRN 08/10/23 09/23/24 History (0.083 %) solution for nebulization Shortness Of Breath cetirizine 10 mg tablet (All Day 10 mg PO DAILY 08/10/23 09/23/24 History Allergy (cetirizine)) ergocalciferol (vitamin D2) 50,000 unit PO .COMPLEX 08/10/23 09/23/24 History fluticasone propionate 50 1 spray intranasal DAILY PRN 08/10/23 09/23/24 History mcg/actuation nasal allergy symptoms spray,suspension prednisone 20 mg tablet 40 mg PO DAILY@0800 08/10/23 09/23/24 History cyclobenzaprine 10 mg tablet 10 mg PO HS 07/31/24 09/23/24 History diclofenac sodium 75 mg 75 mg PO BID 07/31/24 09/23/24 History tablet,delayed release folic acid 1 mg tablet 1 mg PO DAILY 07/31/24 09/23/24 History gabapentin 300 mg capsule 300 mg PO TID 07/31/24 09/23/24 History hydroxychloroquine 200 mg tablet 400 mg PO HS 07/31/24 09/23/24 History insulin glargine 100 unit/mL (3 45 unit subcut BID 07/31/24 09/23/24 History mL) subcutaneous pen (Lantus Solostar U-100 Insulin) lisinopril 20 mg tablet 20 mg PO DAILY 07/31/24 09/23/24 History methotrexate sodium 2.5 mg tablet 12.5 mg PO WEEKLY 07/31/24 09/23/24 History pantoprazole 40 mg tablet,delayed 40 mg PO DAILY 07/31/24 09/23/24 History release acetaminophen 500 mg tablet 1,000 mg PO BID 09/23/24 09/23/24 History famotidine 20 mg tablet (Acid 20 mg PO HS 09/23/24 09/23/24 History Controller) magnesium 200 mg tablet 400 mg PO DAILY 09/23/24 09/23/24 History magnesium salicylate 162.5 1 tablet PO DAILY 09/23/24 09/23/24 History mg-caffeine 50 mg tablet (Diurex) potassium 99 mg tablet 99 mg PO HS 09/23/24 09/23/24 History Allergies Allergy/AdvReac Type Severity Reaction Status Date / Time amoxicillin AdvReac Unknown Nausea and Verified 07/31/24 08:23 Vomiting glipizide AdvReac Unknown NAUSEA AND Verified 02/06/24 14:29 VOMITING hydrocodone AdvReac Unknown Nausea and Verified 02/06/24 14:29 Vomiting metformin AdvReac Unknown Nausea and Verified 02/06/24 14:29 Vomiting Vital Signs Vital Signs - 24 hr 09/22/24 20:28 09/22/24 22:47 09/22/24 22:47 Temperature 36.4 C Pulse Rate 114 H 102 H Respiratory Rate 18 Blood Pressure 188/96 H Pulse Oximetry 97 97 Oxygen Delivery Room Air Room Air 09/22/24 22:52 09/23/24 01:15 09/23/24 01:20 Temperature Pulse Rate 104 H 99 96 Respiratory Rate 17 16 20 Blood Pressure 169/86 H 154/93 H Pulse Oximetry 97 100 Oxygen Delivery 09/23/24 01:25 09/23/24 03:00 09/23/24 05:24 Temperature Pulse Rate 96 92 100 Respiratory Rate 16 20 16 Blood Pressure 147/83 H 162/84 H Pulse Oximetry 96 98 Oxygen Delivery 09/23/24 05:38 09/23/24 05:53 09/23/24 06:04 Temperature 36.7 C Pulse Rate 100 106 H Respiratory Rate 16 20 Blood Pressure 162/84 H 154/90 H Pulse Oximetry 98 98 Oxygen Delivery Room Air 09/23/24 06:33 09/23/24 08:00 Temperature Pulse Rate 101 H 104 H Respiratory Rate Blood Pressure Pulse Oximetry Oxygen Delivery Exam 2 Narrative: GENERAL APPEARANCE: Well developed, well nourished, alert and cooperative, morbidly obese and appears to be in no acute distress while breathing ambient air SKIN: Inspection of the skin reveals no rashes, ulcerations or petechiae. HEENT: Sclerae anicteric and conjunctivae pink and moist. Extraocular movements were intact and pupils were equal, round. The oral mucosa, hard and soft palate, tongue and posterior pharynx were normal. NECK: Supple. There was no thyroid enlargement, and no tenderness, or masses were felt. CHEST: Normal AP diameter and normal contour without any kyphoscoliosis. LUNGS: Auscultation of the lungs revealed normal breath sounds without any other adventitious sounds or rubs. CARDIAC: There was a regular rate and rhythm without any murmurs, gallops, rubs. ABDOMEN: Soft and nontender with normal bowel sounds. There was no organomegaly. No paradoxical abdominal movements in supine position. LYMPH NODES: No lymphadenopathy was appreciated in the neck. EXTREMITIES: No cyanosis, clubbing or edema. NEUROLOGIC: Alert and oriented x 3. Normal affect. Results Laboratory Findings 09/23/24 08:14 09/23/24 08:14 ABG, PT/INR, D-dimer: PT/INR, D-dimer PT 12.6 Seconds (11.1-14.7) 09/22/24 22:46 INR 0.9 09/22/24 22:46 D-Dimer 0.59 ug/mL (<0.48) H 09/22/24 22:46 Abnormal lab findings: Abnormal Labs 09/22/24 09/22/24 09/23/24 22:46 23:33 03:04 WBC 16.8 H RBC 3.88 L Hgb 11.3 L Hct 35.9 L MCHC 31.5 L RDW 15.9 H Plt Count 394 H Immature Gran % (Auto) 1.4 H Neut % (Auto) 90.2 H Lymph % (Auto) 3.9 L Lymph # (Auto) 0.65 L [place]ie # (Auto) 0.7 H Abs Immat Gran (auto) 0.24 H Absolute Neuts (auto) 15.2 H D-Dimer 0.59 H BUN 20 H D Creatinine 0.48 L Glucose 212 H POC Capillary Glucose Hemoglobin A1c 7.8 H Lactic Acid 2.7 H ALT 72 H NT-Pro-B Natriuret Pep 204 H TSH (Reflex) 0.245 L Total T3 0.90 L Urine Protein 2+ H 09/23/24 09/23/24 07:43 08:14 WBC 14.6 H RBC 3.66 L Hgb 10.8 L Hct 34.7 L MCHC 31.1 L RDW 16.1 H Plt Count 404 H Immature Gran % (Auto) 0.8 H Neut % (Auto) 78.2 H Lymph % (Auto) 12.4 L Lymph # (Auto) [place]ie # (Auto) 1.2 H Abs Immat Gran (auto) 0.12 H Absolute Neuts (auto) 11.5 H D-Dimer BUN Creatinine 0.55 L Glucose 141 H POC Capillary Glucose 133 H Hemoglobin A1c Lactic Acid 2.6 H ALT 62 H NT-Pro-B Natriuret Pep TSH (Reflex) Total T3 Urine Protein
[2024-09-23] MEDS: predniSONE 20 MG TABLET 40 MG PO (10:12)
[2024-09-23] MEDS: lisinopriL 20 MG TABLET PO (10:12)
[2024-09-23] MEDS: GABAPENTIN 300 MG CAPSULE PO ×3 (10:12→17:15)
[2024-09-23] MEDS: MAGNESIUM OXIDE 400 MG TABLET PO (10:12)
[2024-09-23] MEDS: PANTOPRAZOLE 40 MG TABLET PO (10:12)
[2024-09-23] MEDS: INSULIN GLARGINE (*BKC) 100 UNITS/ML 35 UNITS SUB-Q ×2 (10:13→21:00)
[2024-09-23] MEDS: FOLIC ACID 1 MG TABLET PO (10:13)
[2024-09-23] MEDS: LORATADINE 10 MG TABLET PO (10:13)
[2024-09-23] MEDS: DICLOFENAC SOD 75 MG TABLET.EC PO ×2 (10:13→17:15)
[2024-09-23] MEDS: ENOXAPARIN 40 MG/0.4 ML SYRINGE SUB-Q ×2 (10:13→20:20)
[2024-09-23 11:56] LABS: Glucose Point of Care 150 mg/dl (65-105)
--- NOTE | 2024-09-23 14:31 | PM.IMPN ---
Progress Note: A&P Assessment and Plan (1) Elevated hemidiaphragm: Code(s): J98.6 - Disorders of diaphragm Status: Acute Assessment and Plan: -Apparent new imaging finding with associated difficulty breathing, hypoxia and tachycardia with bending over -Mild right basal atelectasis on CT/CXR, ER started treatment for pneumonia since patient is immunocompromised -One week history of not feeling like she can get a deep breath most of the time -Worse when laying on right side -Patient recently intubated a month ago but was doing better at home until one week ago -No Botox injections -On Rituxan and methotrexate for autoimmune condition, uncertain significance related to this concern -Ordered Sniff test with 2 view CXR -Consult Pulmonology in the morning (2) Dyspnea: Code(s): R06.00 - Dyspnea, unspecified Status: Acute Assessment and Plan: -Negative for Flu/RSV/Covid -See above -On room air at rest, was 75% saturation at home after bending over to pick something up (3) Hypertension: Qualifiers: Hypertension type: unspecified Qualified Code(s): I10 - Essential (primary) hypertension Code(s): I10 - Essential (primary) hypertension Status: Acute Assessment and Plan: -Blood pressure elevated, likely wrong size BP cuff contributing to this -Patient reports better BP at home on lisinopril daily (4) Diabetes mellitus, insulin dependent (IDDM), uncontrolled: Status: Acute Assessment and Plan: -Glucose elevated, patient has been on prednisone since May 2024 -ACHS fingerstick glucose with high dose SSI -Resume home insulin or equivalent once Med Rec completed -Diet: Heart healthy with carb consistent (5) Morbidly obese: Code(s): E66.01 - Morbid (severe) obesity due to excess calories Status: Chronic Assessment and Plan: -Contributing factor to note (6) JEREMY on CPAP: Code(s): G47.33 - Obstructive sleep apnea (adult) (pediatric) Status: Chronic Assessment and Plan: -Autopap or home unit ordered (7) Lactic acidosis: Code(s): E87.20 - Acidosis, unspecified Status: Acute Assessment and Plan: -Lactic acid 2.7 on initial labs -Received IV fluids and antibiotics, treated for sepsis in ER -More likely related to diabetes than actually sepsis Plan -Admit to med/surg with tele -Sniff test and Pulmonology consult -Continue home medications when verified Subjective Date/time seen: 09/23/24 14:31 Interval history: No acute events reported. Patient underwent a chest fluoroscopy for possible right william diaphragm paralysis. The fluoroscopy showed a normal motion of the right diaphragm. Will advise to use incentive spirometry regularly. As per HPI ,patient was recently admitted in ICU with mechanical ventilation for bilateral pneumonia. Patient is currently on ceftriaxone and azithromycin for possible PNA. Review of Systems Review of Systems: All systems reviewed & are unremarkable except as noted in HPI and below Exam Narrative: GENERAL: awake, alert, oriented, obese, mild dyspnea noted HEAD: Normocephalic, atraumatic. NECK: Supple. No adenopathy, no masses. RESPIRATORY: Airway patent, respirations mildly labored. Clear to auscultation bilaterally, no rales, no rhonchi, no wheezing at time of examination. CARDIOVASCULAR: Tachycardia without murmurs, rubs, or gallops. Peripheral pulses 2+ and equal bilaterally, bilateral lower extremity edema that patient reports is baseline ABDOMINAL: Soft, nontender, nondistended, Normoactive BS. MUSCULOSKELETAL: Moves all extremities. Strength/ROM intact without gross deformities. Ambulatory with steady gait SKIN: Warm, dry, pallor. Chronic erythema lower extremities (vasculitis/PVD) NEURO: A&O X3. Speech clear. Cranial nerves II-XII grossly intact, No ataxic movements. PSYCHIATRIC: Appropriate mood and affect. Normal interaction. Objective Data Vital Signs Vital Signs: Vital Signs - 24 hr 09/22/24 20:28 09/22/24 22:47 09/22/24 22:47 Temperature 97.6 F Pulse Rate 114 H 102 H Respiratory Rate 18 Blood Pressure 188/96 H Pulse Oximetry 97 97 Oxygen Delivery Room Air Room Air 09/22/24 22:52 09/23/24 01:15 09/23/24 01:20 Temperature Pulse Rate 104 H 99 96 Respiratory Rate 17 16 20 Blood Pressure 169/86 H 154/93 H Pulse Oximetry 97 100 Oxygen Delivery 09/23/24 01:25 09/23/24 03:00 09/23/24 05:24 Temperature Pulse Rate 96 92 100 Respiratory Rate 16 20 16 Blood Pressure 147/83 H 162/84 H Pulse Oximetry 96 98 Oxygen Delivery 09/23/24 05:38 09/23/24 05:53 09/23/24 06:04 Temperature 98.0 F Pulse Rate 100 106 H Respiratory Rate 16 20 Blood Pressure 162/84 H 154/90 H Pulse Oximetry 98 98 Oxygen Delivery Room Air 09/23/24 06:33 09/23/24 08:00 09/23/24 09:50 Temperature Pulse Rate 101 H 104 H Respiratory Rate Blood Pressure Pulse Oximetry Oxygen Delivery Room Air 09/23/24 12:00 Temperature Pulse Rate 113 H Respiratory Rate Blood Pressure Pulse Oximetry Oxygen Delivery Intake/Output Intake/Output: Intake & Output 09/20/24 09/21/24 09/22/24 09/23/24 23:59 23:59 23:59 23:59 Intake Total 2772 Balance 2772 Meds/Results Medications: Active Medications Generic Name Dose Route Start Last Admin Trade Name Freq PRN Reason Stop Dose Admin Acetaminophen 1,000 mg 09/23/24 06:39 Acetaminophen 500 Mg Tablet PO Q6H PRN pain/fever Acetylcysteine 200 mg 09/23/24 20:00 Acetylcysteine 20% Inhal Soln 800 Mg/4 Ml Vial INHALATION Q12HRT ZEE Albuterol 2.5 mg 09/23/24 20:00 Albuterol Sulfate Neb 2.5 Mg/3 Ml Inh INHALATION Q6HRT ZEE Albuterol/Ipratropium 3 ml 09/23/24 00:54 09/23/24 01:15 Ipratropium 0.5 Mg/Albuterol Sulfate 2.5 Mg Ampul.Neb 3 Ml INHALATION 3 ml Q6HRT PRN Administration Wheezing Atorvastatin Calcium 20 mg 09/23/24 21:00 Atorvastatin 20 Mg Tablet PO HS ZEE Cyclobenzaprine HCl 10 mg 09/23/24 21:00 Cyclobenzaprine Hcl 10 Mg Tablet PO HS ZEE Dextrose 12.5 gm 09/23/24 05:56 Dextrose 50% 25 Gm/50 Ml Syringe IV PUSH PRN PRN Hypoglycemia Protocol Diclofenac Sodium 75 mg 09/23/24 08:00 09/23/24 10:13 Diclofenac Sod 75 Mg Tablet.Ec PO 75 mg BIDWM ZEE Administration Enoxaparin Sodium 40 mg 09/23/24 09:00 09/23/24 10:13 Enoxaparin 40 Mg/0.4 Ml Syringe SUB-Q 40 mg Q12HR ZEE Administration Famotidine 20 mg 09/23/24 21:00 Famotidine 20 Mg Tablet PO HS ZEE Fluticasone Propionate 2 spray 09/23/24 06:39 Fluticasone Propionate 0.05% Na Spr 16 Gm Btl (*Bkc) NASAL DAILY PRN allergy symptoms Folic Acid 1 mg 09/23/24 09:00 09/23/24 10:13 Folic Acid 1 Mg Tablet PO 1 mg DAILY ZEE Administration Gabapentin 300 mg 09/23/24 09:00 09/23/24 12:37 Gabapentin 300 Mg Capsule PO 300 mg TID ZEE Administration Glucagon 1 mg 09/23/24 05:56 Glucagon For Inj 1 Mg Vial IM PRN PRN Hypoglycemia Protocol Glucose 15 gm 09/23/24 05:56 Glucose Oral Gel 15 Gm Of Glucse In 37.5 Gm Tube PO PRN PRN Hypoglycemia Protocol Hydroxychloroquine Sulfate 400 mg 09/23/24 21:00 Hydroxychloroquine Sulfate 200 Mg Tablet PO HS ZEE Ceftriaxone Sodium 1 gm in 50 mls @ 100 mls/hr 09/24/24 05:00 Rocephin 1 Gm/Ns 50 Ml IVPB Q24H ZEE Azithromycin 500 mg in 250 mls @ 250 mls/hr 09/24/24 05:00 Zithromax IVPB Q24H ZEE Dextrose 1,000 mls @ 100 mls/hr 09/23/24 05:56 Dextrose 5% 1,000 Ml IVPB PRN PRN Hypoglycemia Protocol Insulin Aspart 4 - 8 units 09/23/24 08:00 09/23/24 12:10 Insulin Aspart (*Bkc) 100 Units/Ml SUB-Q Not Given TIDWM [facility] Protocol Insulin Glargine 35 units 09/23/24 09:00 09/23/24 10:13 Insulin Glargine (*Bkc) 100 Units/Ml SUB-Q 35 units Q12HR ZEE Administration Lisinopril 20 mg 09/23/24 09:00 09/23/24 10:12 Lisinopril 20 Mg Tablet PO 20 mg DAILY ZEE Administration Loratadine 10 mg 09/23/24 09:00 09/23/24 10:13 Loratadine 10 Mg Tablet PO 10 mg DAILY ZEE Administration Magnesium Oxide 400 mg 09/23/24 09:00 09/23/24 10:12 Magnesium Oxide 400 Mg Tablet PO 400 mg DAILY ZEE Administration Montelukast Sodium 10 mg 09/23/24 21:00 Montelukast Sodium 10 Mg Tablet PO HS ZEE Pantoprazole Sodium 40 mg 09/23/24 09:00 09/23/24 10:12 Pantoprazole 40 Mg Tablet PO 40 mg DAILY ZEE Administration Prednisone 40 mg 09/23/24 08:00 09/23/24 10:12 Prednisone 20 Mg Tablet PO 40 mg DAILY@0800 ZEE Administration Tramadol HCl 50 mg 09/23/24 06:39 Tramadol Hcl (*Crx) 50 Mg Tablet PO Q4H PRN Severe pain Venlafaxine HCl 150 mg 09/23/24 18:00 Venlafaxine Hcl Xr 75 Mg Cap.Er.24h PO QPM [facility] Radiology Results: ITS Impressions Chest X-Ray 09/22/24 20:56 IMPRESSION: 1. Elevation of right hemidiaphragm with mild atelectasis at right lung base. Chest CTA 09/22/24 23:51 IMPRESSION: 1. No pulmonary embolus. 2. Elevation of right hemidiaphragm with mild atelectasis at right lung base. Chest Fluoroscopy 09/23/24 12:28 IMPRESSION: 1. Elevated right hemidiaphragm but with normal sniff test. No evidence of phrenic nerve palsy. Labs Labs: Laboratory Results - last 24 hr 09/22/24 09/22/24 09/23/24 22:46 23:33 00:36 WBC 16.8 H RBC 3.88 L Hgb 11.3 L Hct 35.9 L MCV 92.5 MCH 29.1 MCHC 31.5 L RDW 15.9 H Plt Count 394 H MPV 9.5 Immature Gran % (Auto) 1.4 H Neut % (Auto) 90.2 H Lymph % (Auto) 3.9 L [place] % (Auto) 4.3 Eos % (Auto) 0.0 Baso % (Auto) 0.2 Lymph # (Auto) 0.65 L [place] # (Auto) 0.7 H Eos # (Auto) 0.0 Baso # (Auto) 0.0 Abs Immat Gran (auto) 0.24 H Absolute Neuts (auto) 15.2 H Absolute Nucleated RBC 0.000 Nucleated RBC % 0.0 PT 12.6 INR 0.9 APTT 22.7 D-Dimer 0.59 H Sodium 138 Potassium 4.2 Chloride 99 Carbon Dioxide 28 Anion Gap 11 BUN 20 H D Creatinine 0.48 L Estim Creat Clear Calc Not Reportable Estimated GFR > 60 Glucose 212 H POC Capillary Glucose Hemoglobin A1c 7.8 H Lactic Acid 2.7 H Calcium 9.4 Phosphorus Magnesium 2.0 Total Bilirubin 0.6 AST 29 ALT 72 H Alkaline Phosphatase 66 Troponin I < 0.012 C-Reactive Protein 0.5 NT-Pro-B Natriuret Pep 204 H Total Protein 8.0 Albumin 4.4 Procalcitonin 0.1 TSH (Reflex) 0.245 L Free T4 0.92 Total T3 0.90 L Urine Color Urine Appearance Urine pH Ur Specific [place] Urine Protein Urine Glucose (UA) Urine Ketones Ur Blood (Man) Urine Nitrate Urine Bilirubin Urine Urobilinogen Leukocyte Esterase Rfl Urine RBC Urine WBC Ur Squamous Epith Cells Urine Bacteria Urine Casts Influenza A (RT-PCR) Negative Influenza B (RT-PCR) Negative RSV (RT-PCR) Negative SARS-CoV-2 RNA (RT-PCR) Negative 09/23/24 09/23/24 09/23/24 03:04 07:43 08:14 WBC 14.6 H RBC 3.66 L Hgb 10.8 L Hct 34.7 L MCV 94.8 MCH 29.5 MCHC 31.1 L RDW 16.1 H Plt Count 404 H MPV 9.5 Immature Gran % (Auto) 0.8 H Neut % (Auto) 78.2 H Lymph % (Auto) 12.4 L [place] % (Auto) 8.2 Eos % (Auto) 0.1 Baso % (Auto) 0.3 Lymph # (Auto) 1.81 [place] # (Auto) 1.2 H Eos # (Auto) 0.0 Baso # (Auto) 0.1 Abs Immat Gran (auto) 0.12 H Absolute Neuts (auto) 11.5 H Absolute Nucleated RBC 0.000 Nucleated RBC % 0.0 PT INR APTT D-Dimer Sodium 139 Potassium 3.7 Chloride 102 Carbon Dioxide 30 Anion Gap 7 BUN 15 D Creatinine 0.55 L Estim Creat Clear Calc 156 Estimated GFR > 60 Glucose 141 H POC Capillary Glucose 133 H Hemoglobin A1c Lactic Acid 2.6 H Calcium 9.1 Phosphorus 3.8 Magnesium 1.9 Total Bilirubin 0.6 AST 21 ALT 62 H Alkaline Phosphatase 52 Troponin I C-Reactive Protein NT-Pro-B Natriuret Pep Total Protein 7.0 Albumin 4.1 Procalcitonin TSH (Reflex) Free T4 Total T3 Urine Color Yellow Urine Appearance Clear Urine pH 6.5 Ur Specific [place] 1.010 Urine Protein 2+ H Urine Glucose (UA) Negative Urine Ketones Negative Ur Blood (Man) Negative Urine Nitrate Negative Urine Bilirubin Negative Urine Urobilinogen 0.2 Leukocyte Esterase Rfl Negative Urine RBC 0-2 Urine WBC 0-5 Ur Squamous Epith Cells None seen Urine Bacteria None seen Urine Casts 0-2 Influenza A (RT-PCR) Influenza B (RT-PCR) RSV (RT-PCR) SARS-CoV-2 RNA (RT-PCR) 09/23/24 11:32 WBC RBC Hgb Hct MCV MCH MCHC RDW Plt Count MPV Immature Gran % (Auto) Neut % (Auto) Lymph % (Auto) [place] % (Auto) Eos % (Auto) Baso % (Auto) Lymph # (Auto) [place] # (Auto) Eos # (Auto) Baso # (Auto) Abs Immat Gran (auto) Absolute Neuts (auto) Absolute Nucleated RBC Nucleated RBC % PT INR APTT D-Dimer Sodium Potassium Chloride Carbon Dioxide Anion Gap BUN Creatinine Estim Creat Clear Calc Estimated GFR Glucose POC Capillary Glucose 150 H Hemoglobin A1c Lactic Acid Calcium Phosphorus Magnesium Total Bilirubin AST ALT Alkaline Phosphatase Troponin I C-Reactive Protein NT-Pro-B Natriuret Pep Total Protein Albumin Procalcitonin TSH (Reflex) Free T4 Total T3 Urine Color Urine Appearance Urine pH Ur Specific [place] Urine Protein Urine Glucose (UA) Urine Ketones Ur Blood (Man) Urine Nitrate Urine Bilirubin Urine Urobilinogen Leukocyte Esterase Rfl Urine RBC Urine WBC Ur Squamous Epith Cells Urine Bacteria Urine Casts Influenza A (RT-PCR) Influenza B (RT-PCR) RSV (RT-PCR) SARS-CoV-2 RNA (RT-PCR) Quality VTE Prophylaxis VTE prophylaxis: pharmacologic ordered (Lovenox 40 mg BID) Hospitalist MIPS Advance Care Plan I have confirmed that the patient's Advanced Care Plan is present, code status is documented, or surrogate decision maker is listed in patient medical record.: Yes Medication Reconciliation I have utilized all available resources to obtain, update and review the patients current medications (includes all prescriptions, OTC, herbals, cannabis, and nutritional supplements).: Yes
[2024-09-23 17:08] LABS: Glucose Point of Care 275 mg/dl (65-105)
[2024-09-23] MEDS: INSULIN ASPART (*BKC) 100 UNITS/ML SUB-Q (17:15)
[2024-09-23] MEDS: VENLAFAXINE HCL XR 75 MG CAP.ER.24H 150 MG PO (17:18)
[2024-09-23] MEDS: ACETYLCYSTEINE 20% INHAL SOLN 800 MG/4 ML VIAL 200 MG INHALATION (19:53)
[2024-09-23] MEDS: ALBUTEROL SULFATE NEB 2.5 MG/3 ML INH INHALATION (19:53)
[2024-09-23] MEDS: MONTELUKAST SODIUM 10 MG TABLET PO (20:18)
[2024-09-23] MEDS: HYDROXYCHLOROQUINE SULFATE 200 MG TABLET 400 MG PO (20:18)
[2024-09-23] MEDS: CYCLOBENZAPRINE HCL 10 MG TABLET PO (20:18)
[2024-09-23] MEDS: FAMOTIDINE 20 MG TABLET PO (20:18)
[2024-09-23] MEDS: ATORVASTATIN 20 MG TABLET PO (20:18)
[2024-09-23 20:39] LABS: Glucose Point of Care 238 mg/dl (65-105)
[2024-09-24] VITALS (7 sets, daily range): BP systolic 154–163; BP diastolic 87–91; PULSE 92–119; RESP 18–70; TEMP 36.2–36.9; O2SAT 93–98
[2024-09-24] MEDS: ALBUTEROL SULFATE NEB 2.5 MG/3 ML INH INHALATION ×3 (01:54→13:55)
[2024-09-24] MEDS: AZITHROMYCIN 500 MG/NS 250 ML 500 MG/250 ML BAG 250 MG IVPB (05:30)
[2024-09-24 06:20] LABS: Basophils Absolute Auto 0.1 K/mm3 (0.0-0.1); Basophils Percent Auto 0.5 % (0.2-1.2); Eosinophils Percent Auto 0.4 % (0-4.4); Hematocrit 35.3 % (37.0-47.0); Hemoglobin 10.9 g/dL (12.0-15.0); Immature Granulocyte Absolute 0.08 K/mm3 (0.00-0.031); Immature Granulocyte Percent A 0.8 % (0-0.5); Lymphocytes Absolute Auto 2.82 K/mm3 (0.9-3.2); Lymphocytes Percent Auto 28.5 % (18.3-44.2); Mean Corpuscular HGB Conc 30.9 g/dl (32-36); Mean Corpuscular Hemoglobin 29.4 pg (26-34); Mean Corpuscular Volume 95.1 fl (80-100); Mean Platelet Volume 9.8 fl (7.4-10.4); Monocytes Absolute Auto 0.8 K/mm3 (0.1-0.6); Monocytes Percent Auto 7.8 % (2.6-8.5); Neutrophils Absolute Auto 6.1 K/mm3 (1.3-6.7); Platelet Count Result 358 k/mm3 (150-375); Red Blood Count 3.71 M/mm3 (4.2-5.4); Red Cell Distribution Width 16.1 % (11.5-14.5); White Blood Count 9.9 K/mm3 (4.5-10.0)
[2024-09-24 07:22] LABS: Alanine Aminotransferase 67 U/L (6-35); Albumin Level 3.8 g/dL (3.5-5.1); Alkaline Phosphatase 49 U/L (38-126); Anion Gap 8 mmol/L (4-12); Aspartate Amino Transferase 22 U/L (14-36); Bilirubin,Total 0.6 mg/dL (0.2-1.3); Blood Urea Nitrogen 16 mg/dL (7-17); Calcium 9.2 mg/dL (8.4-10.2); Carbon Dioxide 30 mmol/L (22-30); Chloride 101 mmol/L (98-107); Estimated CRCL calculation 156 ml/min; Estimated Glomerular Filt Rate > 60; Glucose 89 mg/dL (65-110); Potassium 3.7 mmol/L (3.4-5.0); Sodium 139 mmol/L (137-145)
--- NOTE | 2024-09-24 07:29 | PM.DS ---
DS: Admitting Diagnosis Discharge Date 09/24/2024 Admitting Diagnosis Dyspnea, tachycardia, hypoxia at home DS: Discharge Diagnosis Discharge Diagnosis (1) Elevated hemidiaphragm: Code(s): J98.6 - Disorders of diaphragm Status: Acute Assessment and Plan: -Apparent new imaging finding with associated difficulty breathing, hypoxia and tachycardia with bending over -Mild right basal atelectasis on CT/CXR, ER started treatment for pneumonia since patient is immunocompromised -One week history of not feeling like she can get a deep breath most of the time -Worse when laying on right side -Patient recently intubated a month ago but was doing better at home until one week ago -No Botox injections -On Rituxan and methotrexate for autoimmune condition, uncertain significance related to this concern -Ordered Sniff test with 2 view CXR -Consult Pulmonology in the morning (2) Dyspnea: Code(s): R06.00 - Dyspnea, unspecified Status: Acute Assessment and Plan: -Negative for Flu/RSV/Covid -See above -On room air at rest, was 75% saturation at home after bending over to pick something up (3) Hypertension: Qualifiers: Hypertension type: unspecified Qualified Code(s): I10 - Essential (primary) hypertension Code(s): I10 - Essential (primary) hypertension Status: Acute Assessment and Plan: -Blood pressure elevated, likely wrong size BP cuff contributing to this -Patient reports better BP at home on lisinopril daily (4) Diabetes mellitus, insulin dependent (IDDM), uncontrolled: Status: Acute Assessment and Plan: -Glucose elevated, patient has been on prednisone since May 2024 -ACHS fingerstick glucose with high dose SSI -Resume home insulin or equivalent once Med Rec completed -Diet: Heart healthy with carb consistent (5) Morbidly obese: Code(s): E66.01 - Morbid (severe) obesity due to excess calories Status: Chronic Assessment and Plan: -Contributing factor to note (6) JEREMY on CPAP: Code(s): G47.33 - Obstructive sleep apnea (adult) (pediatric) Status: Chronic Assessment and Plan: -Autopap or home unit ordered (7) Lactic acidosis: Code(s): E87.20 - Acidosis, unspecified Status: Acute Assessment and Plan: -Lactic acid 2.7 on initial labs -Received IV fluids and antibiotics, treated for sepsis in ER -More likely related to diabetes than actually sepsis DS: Summary Hospital Course Hospital Course: This is a 49-year-old female patient with a history of insulin-dependent type 2 diabetes, hypertension, obstructive sleep apnea, elevated cholesterol, vasculitis and autoimmune disorder who was recently admitted to the hospital about a month ago with pneumonia requiring intubation. Patient stated that she was breathing better after discharge until about a week ago when she started having increased difficulty breathing especially when bending over or with significant activity. Patient also reports that it feels difficult to get a full deep breath for this last week although sometimes she will end up getting 1 good deep breath. She denies fever or chills. She reports that prior to coming to the ER today her oxygen level dropped to 75% at home after she bent over to pick something up. She states that laying on her the right side of her body worsens her difficulty breathing. She states that her activity tolerance has decreased somewhat as well. Patient remains on oral steroids and has been on prednisone for months. She also gets IV infusions of Rituxan and has been on methotrexate. During previous ICU admission patient tested positive for RSV. On this visit her influenza RSV and COVID test are negative. In the emergency department chest x-ray showed elevation of the right hemidiaphragm with mild atelectasis at the right lung base. CTA was obtained negative for pulmonary embolus continues to demonstrate elevation of right hemidiaphragm with mild atelectasis at the right lung base. She was started on Rocephin and azithromycin for potential of infection/pneumonia in the location of this atelectasis. I reviewed the images and compared to prior CT scan and it does appear the right hemidiaphragm is a bit higher than it was previously. Previous nasal swabs have been negative for MRSA. Labs show white blood cell count of 16.8 but she has been chronically elevated while being on steroids. Lactic acid was 2.7 so she was treated with IV fluid bolus and started on Rocephin and azithromycin. Patient reports that she finally came to the ER today due to the low oxygen saturation as well as elevation of her heart rate to 145 while bending over. Patient underwent chest fluoroscopy for possible right hemidiaphragm paralysis. Fluoroscopy showed normal motion of the right diaphragm which makes paralysis unlikely. The elevated diaphragm is then related to basal atelectasis. As stated the patient has no signs of a lower respiratory tract infection. She reports no chest congestion or sputum production. Pt needs to continue use incentive spirometry at home and use the nebulized short-acting bronchodilator three times daily. If the X-ray still shows right basal atelectasis with an elevated diaphragm, she will need a follow-up appointment in the pulmonary clinic in approximately two weeks. The patient will also continue using CPAP at home for sleep-disordered breathing. Dsicuss with contact acid plant operator to consider diaphragmatic plication if necessary. Status at Discharge Cognitive/behavioral status at discharge: Stable Time Spent with Patient Time attestation: Total time spent providing and/or coordinating discharge services: 45 minutes Exam Narrative: GENERAL: awake, alert, oriented, obese, mild dyspnea noted HEAD: Normocephalic, atraumatic. NECK: Supple. No adenopathy, no masses. RESPIRATORY: Airway patent, respirations mildly labored. Clear to auscultation bilaterally, no rales, no rhonchi, no wheezing at time of examination. CARDIOVASCULAR: Tachycardia without murmurs, rubs, or gallops. Peripheral pulses 2+ and equal bilaterally, bilateral lower extremity edema that patient reports is baseline ABDOMINAL: Soft, nontender, nondistended, Normoactive BS. MUSCULOSKELETAL: Moves all extremities. Strength/ROM intact without gross deformities. Ambulatory with steady gait SKIN: Warm, dry, pallor. Chronic erythema lower extremities (vasculitis/PVD) NEURO: A&O X3. Speech clear. Cranial nerves II-XII grossly intact, No ataxic movements. PSYCHIATRIC: Appropriate mood and affect. Normal interaction. DS: Data Data Completed and Pending Labs on day of discharge: Labs from last 24 hours 09/24/24 09/23/24 09/23/24 05:22 20:03 16:59 WBC 9.9 RBC 3.71 L Hgb 10.9 L Hct 35.3 L MCV 95.1 MCH 29.4 MCHC 30.9 L RDW 16.1 H Plt Count 358 MPV 9.8 Immature Gran % (Auto) 0.8 H Neut % (Auto) 62.0 Lymph % (Auto) 28.5 [place] % (Auto) 7.8 Eos % (Auto) 0.4 Baso % (Auto) 0.5 Lymph # (Auto) 2.82 [place] # (Auto) 0.8 H Eos # (Auto) 0.0 Baso # (Auto) 0.1 Abs Immat Gran (auto) 0.08 H Absolute Neuts (auto) 6.1 Absolute Nucleated RBC 0.000 Nucleated RBC % 0.0 Sodium 139 Potassium 3.7 Chloride 101 Carbon Dioxide 30 Anion Gap 8 BUN 16 Creatinine 0.55 L Estim Creat Clear Calc 156 Estimated GFR > 60 Glucose 89 POC Capillary Glucose 238 H 275 H Hemoglobin A1c Lactic Acid Calcium 9.2 Phosphorus Magnesium 2.0 Total Bilirubin 0.6 AST 22 ALT 67 H Alkaline Phosphatase 49 Total Protein 7.0 Albumin 3.8 Procalcitonin 09/23/24 09/23/24 09/23/24 11:32 08:14 07:43 WBC 14.6 H RBC 3.66 L Hgb 10.8 L Hct 34.7 L MCV 94.8 MCH 29.5 MCHC 31.1 L RDW 16.1 H Plt Count 404 H MPV 9.5 Immature Gran % (Auto) 0.8 H Neut % (Auto) 78.2 H Lymph % (Auto) 12.4 L [place] % (Auto) 8.2 Eos % (Auto) 0.1 Baso % (Auto) 0.3 Lymph # (Auto) 1.81 [place] # (Auto) 1.2 H Eos # (Auto) 0.0 Baso # (Auto) 0.1 Abs Immat Gran (auto) 0.12 H Absolute Neuts (auto) 11.5 H Absolute Nucleated RBC 0.000 Nucleated RBC % 0.0 Sodium 139 Potassium 3.7 Chloride 102 Carbon Dioxide 30 Anion Gap 7 BUN 15 D Creatinine 0.55 L Estim Creat Clear Calc 156 Estimated GFR > 60 Glucose 141 H POC Capillary Glucose 150 H 133 H Hemoglobin A1c Lactic Acid 2.6 H Calcium 9.1 Phosphorus 3.8 Magnesium 1.9 Total Bilirubin 0.6 AST 21 ALT 62 H Alkaline Phosphatase 52 Total Protein 7.0 Albumin 4.1 Procalcitonin 09/22/24 22:46 WBC RBC Hgb Hct MCV MCH MCHC RDW Plt Count MPV Immature Gran % (Auto) Neut % (Auto) Lymph % (Auto) [place] % (Auto) Eos % (Auto) Baso % (Auto) Lymph # (Auto) [place] # (Auto) Eos # (Auto) Baso # (Auto) Abs Immat Gran (auto) Absolute Neuts (auto) Absolute Nucleated RBC Nucleated RBC % Sodium Potassium Chloride Carbon Dioxide Anion Gap BUN Creatinine Estim Creat Clear Calc Estimated GFR Glucose POC Capillary Glucose Hemoglobin A1c 7.8 H Lactic Acid Calcium Phosphorus Magnesium Total Bilirubin AST ALT Alkaline Phosphatase Total Protein Albumin Procalcitonin 0.1 Preliminary micro results at discharge 09/23/24 00:33 Blood Culture - Preliminary Blood Discharge Plan Discharge Attending physician on discharge: Frank Monk Consulting providers: Frank Buitrago Discharging Clinician: Frank Monk Anticipated Discharge Date/Time: 09/24/24 13:56 Patient Disposition: Home Health Service Activity: as tolerated Diet: heart healthy Discharge Instructions: Per Care Coordination Patient is current with [facility] for RN, PT, OT. Please resume services at discharge. [phone] RN please fax completed discharge instructions to [phone] Patient needs to continue use incentive spirometry at home and use the nebulized short-acting bronchodilator three times daily. Please follow up with Assistant Real Estate Manager. Take precautions to avoid falls. Rise slowly from a lying or sitting position. Pause before standing or walking. Contact your doctor or call 911 and come to the Emergency Room if you have any type of trauma, lightheadedness with standing or other worrisome symptoms. Avoid NSAIDs (ibuprofen, naproxen, Aleve). Tylenol is safe to take. Follow-up with your primary care provider and Assistant Real Estate Manager in 1-2 weeks. Please call for appointment. Thank you for using [facility] for your health care needs. Patient Instructions: Antibiotic Form Patient Language: Tajik Stand Alone Forms: General Discharge Information Follow-up/Referrals: PHYSICIAN NOT ON STAFF,NONSTAFF [Primary Care Provider] - Frank Buitrago MD [Physician] - Discharge Medications: Continued atorvastatin 20 mg tablet 20 mg PO HS Rx Instructions: Has been off since June due PCP order. montelukast 10 mg tablet 10 mg PO HS loratadine [Claritin] 10 mg Tablet 10 mg PO DAILY venlafaxine 150 mg capsule,extended release 24hr 150 mg PO QPM Yaumchato UnderwoodPen U-100 Insulin 100 unit/mL insulin pen 1 sliding scale dose SUBCUT AC Rx Instructions: For blood sugar of 150 or less administer 18 units for blood sugar per 25 points greater than 150 administer 1 unit per 25 over Mounjaro 5 mg/0.5 mL pen injector 10 mg SUBCUT WEEKLY Patient Comments: on Saturdays tramadol 50 mg Tablet 50 mg PO Q4H PRN (Reason: Severe pain) Qty: 15 0RF albuterol sulfate 2.5 mg /3 mL (0.083 %) solution for nebulization 2.5 mg inhalation DAILY PRN (Reason: Shortness Of Breath) cetirizine [All Day Allergy (cetirizine)] 10 mg Tablet 10 mg PO DAILY fluticasone propionate 50 mcg/actuation Goldvein,Suspension 1 spray INTRANASAL DAILY PRN (Reason: allergy symptoms) ergocalciferol (vitamin D2) 50,000 unit PO .COMPLEX Patient Comments: Patient takes on Wednesdays and Sundays Rx Instructions: 50,000 units orally twice a week; prednisone 20 mg tablet 40 mg PO DAILY@0800 cyclobenzaprine 10 mg tablet 10 mg PO HS Patient Comments: patient takes in the evening lisinopril 20 mg tablet 20 mg PO DAILY methotrexate sodium 2.5 mg tablet 12.5 mg PO WEEKLY Rx Instructions: on gabapentin 300 mg capsule 300 mg PO TID diclofenac sodium 75 mg tablet,delayed release (DR/EC) 75 mg PO BID folic acid 1 mg tablet 1 mg PO DAILY hydroxychloroquine 200 mg tablet 400 mg PO HS insulin glargine [Lantus Solostar U-100 Insulin] 100 unit/mL (3 mL) insulin pen 45 unit SUBCUT BID Patient Comments: in the morning and evening pantoprazole 40 mg tablet,delayed release (DR/EC) 40 mg PO DAILY Diurex 162.5-50 mg tablet 1 tablet PO DAILY magnesium 200 mg tablet 400 mg PO DAILY potassium 99 mg tablet 99 mg PO HS famotidine [Acid Controller] 20 mg tablet 20 mg PO HS acetaminophen 500 mg Tablet 1,000 mg PO BID Date of admission: 09/23/24 00:54 Primary Care Provider: PHYSICIAN NOT ON STAFF,NONSTAFF Admitting Provider: Helio Lombardi Attending physician on admission: Helio Lombardi Condition: Stable
[2024-09-24 08:14] LABS: Glucose Point of Care 98 mg/dl (65-105)
[2024-09-24] MEDS: DICLOFENAC SOD 75 MG TABLET.EC PO (09:37)
[2024-09-24] MEDS: GABAPENTIN 300 MG CAPSULE PO ×2 (09:37→14:05)
[2024-09-24] MEDS: MAGNESIUM OXIDE 400 MG TABLET PO (09:37)
[2024-09-24] MEDS: predniSONE 20 MG TABLET 40 MG PO (09:37)
[2024-09-24] MEDS: LORATADINE 10 MG TABLET PO (09:37)
[2024-09-24] MEDS: FOLIC ACID 1 MG TABLET PO (09:37)
[2024-09-24] MEDS: lisinopriL 20 MG TABLET PO (09:37)
[2024-09-24] MEDS: INSULIN GLARGINE (*BKC) 100 UNITS/ML 35 UNITS SUB-Q (09:37)
[2024-09-24] MEDS: PANTOPRAZOLE 40 MG TABLET PO (09:37)
[2024-09-24] MEDS: ENOXAPARIN 40 MG/0.4 ML SYRINGE SUB-Q (09:38)
[2024-09-24] MEDS: ACETYLCYSTEINE 20% INHAL SOLN 800 MG/4 ML VIAL 200 MG INHALATION (09:54)
[2024-09-24 12:10] LABS: Glucose Point of Care 154 mg/dl (65-105)
[2024-09-24] MEDS: INFLUENZA TRIVALENT VACCINE 45 MCG/0.5 ML SYRINGE IM (15:10)
== END 2024-09-24 15:35 | disposition home health service (06) ==
LOC: ANHED 09-23 00:54 → ANH2MED 09-23 13:43 → ANH3MEDSUR 09-26 07:38
PROVIDERS: Emergency Medicine; Nurse Practitioner; Admitting Provider Hospitalist; Emergency Provider Registered Nurse; Visit Provider General Practice
DX: J98.6 Disorders of diaphragm (principal); R06.00 Dyspnea, unspecified; I10 Essential (primary) hypertension; E11.9 Type 2 diabetes mellitus without complications; E66.01 Morbid (severe) obesity due to excess calories; Z68.43 Body mass index [BMI] 50.0-59.9, adult; G47.33 Obstructive sleep apnea (adult) (pediatric); E87.20 Acidosis, unspecified; E78.00 Pure hypercholesterolemia, unspecified; I77.6 Arteritis, unspecified; D89.89 Other specified disorders involving the immune mechanism, not elsewhere classified; Z99.89 Dependence on other enabling machines and devices; Z23 Encounter for immunization; Z20.822 Contact with and (suspected) exposure to COVID-19; Z79.85 Long-term (current) use of injectable non-insulin antidiabetic drugs; Z79.4 Long term (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; Z79.51 Long term (current) use of inhaled steroids; Z79.52 Long term (current) use of 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s; Z79.899 Other long term (current) drug therapy
CPT/HCPCS: 36415; 71045; 71046; 71275; 76000; 80053; 80069; 81001; 82948; 83036; 83605; 83735; 83880; 84145; 84439; 84443; 84480; 84484; 85025; 85380; 85610; 85730; 86140; 87040; 87637; 90471; 90656; 93005; 94640; 94762; 96361; 96365; 96366; 96372; 96376; 99285; A9270; G0008; G0378; J0456; J0696; J1650; J1815; J7030; J7512; Q9967

== ENCOUNTER 2024-10-03 02:23 | Inpatient (IN) | payer OTHER, SELFPAY ==
[2024-10-03] VITALS (31 sets, daily range): BP systolic 148–180; BP diastolic 91–109; PULSE 121–137; RESP 15–26; TEMP 36.4–37.1; O2SAT 93–98; BMI 49.4
--- NOTE | ~2024-10-03 | XR_ITS ---
EXAMINATION: XR chest 1V portable DATE: 10/07/2024 05:55 INDICATION: Pneumonia. TECHNIQUE: A single frontal view of the chest was obtained. COMPARISON: Chest single view 10/03/2024, chest CT 10/03/2024 FINDINGS: There is chronic elevation of right hemidiaphragm. There is mild atelectasis at right lung base. There are mild airspace opacities at left lung base. No pleural effusion or pneumothorax. The h eart size is normal. IMPRESSION: 1. Mild airspace opacities at left lung base, consistent with atelectasis versus pneumonia. 2. Chronic elevation of right hemidiaphragm with mild atelectasis at right lung base. Reviewed, dictated and finalized at location A. FORMER IMPRESSION: 1. Mild airspace opacities at left lung base, consistent with atelectasis versu s pneumonia. 2. Chronic elevation of right hemidiaphragm with mild atelectasis at right lung base.
--- NOTE | ~2024-10-03 | CT_ITS ---
Clinical Indication: Shortness of breath, tachycardia CT Scan of the Chest with Contrast: Technique: Contiguous sections were acquired throughout the chest after intravenous administration of 100 cc of Omnipaque 350. Dose reduction technique was used on this scan by utilizing automated expos ure control and iterative reconstruction technique. The dose-length product (DLP) was 991.84 mGy-cm. COMPARISON: 09/22/2024 Findings: There is no evidence of any significant mediastinal, hilar or axillary lymphadenopathy. There is no f illing defect in the pulmonary arterial tree to suggest pulmonary embolus. There is no evidence of ao rtic dissection or aneurysm. There is no evidence of pleural or pericardial effusion. Interval development of multiple focal, predominantly peripheral areas of groundglass opacity and mil d consolidation. Images through the upper abdomen reveal probable diffuse hepatic steatosis. Impression: No evidence of pulmonary embolus, aortic dissection, or aortic aneurysm. Interval development of multiple focal, predominantly peripheral areas of groundglass opacity and foc al consolidation. Findings suggest infectious/inflammatory process, including possibility of Covid 19 pneumonia. Clinical correlation required. Diffuse hepatic steatosis. Reviewed, dictated and finalized at [facility]. DIRECTOR/FINANCE Impression: No evidence of pulmonary embolus, aortic dissection, or aortic aneurysm. Interval development of multiple focal, predominantly peripheral areas of groun dglass opacity and focal consolidation. Findings suggest infectious/inflammator y process, including possibility of Covid 19 pneumonia. Clinical correlation re quired. Diffuse hepatic steatosis.
--- NOTE | ~2024-10-03 | XR_ITS ---
Portable chest x-ray Comparison: 09/24/2024 Clinical History: Shortness of breath Findings: Lungs are clear, without focal consolidation or pleural effusion. Stable elevation right h emidiaphragm. Cardiomediastinal silhouette is stable. Bones and soft tissues are unremarkable. Impression: No acute abnormality. Reviewed, dictated and finalized at location . [facility] Impression: No acute abnormality.
--- OUTSIDE RECORDS SUMMARY | 2024-10-03 02:24 | XMS_ITS | Encounter Summary ---
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 Reason Given: Patient comments: still recovering from hospital stay; limited mobility Action Taken: No Action Required UTER OPERATIONS TECHNICIAN documented in this encounter Plan of Treatment Not on file documented as of this encounter Visit Diagnoses Not on filedocumented in this encounter Care Teams Supervisor Sample Preparation Relationship Specialty [place] [id number] [address] PCP - General Internal Medicine 04/06/24 Ann Serrano MD Referring Physician Endocrinology Diabetes & Metabolism 06/08/20 documented as of this encounter
--- OUTSIDE RECORDS SUMMARY | 2024-10-03 02:24 | XMS_ITS | Continuity of Care Document ---
Author Organization [facility] Address [address] [place] [address] Phone Care Team Providers Care Metal Sprayer Production Name Role Phone Alex Ingram MD Unavailable [...] Diagnoses Date Provider Providers Copied on Encounter [facility], [address], [place], [place], [id number], [place] [phone] SEC Alexandre [place] Professional Complete Exam (chief complaint) Diabetes mellitus without complication 3 Juan Jose Johnson. [address] [facility], [facility] [address], [place], [place], [id number], [place]. tel:[phone] Specialist: Ann Serrano MD, [address] [place], [address]. tel:[phone] alist: Ann Serrano MD, [facility] [place], [address]. tel:[phone] ring Provider: Kishor Saleh MD, [address] [facility] [address], [place], [address]. tel:[phone] [facility], [address], [place], [place], [id number], [place] tel:[phone] SEC Alexandre [place] Professional diabetic eye exam (chief complaint) Diabetes mellitus without complicationE pidemic keratoconjunc tivitis of both eyes 2 Juan Jose Johnson. [address] [facility], [address], [place], [place], [id number], [place]. tel:[phone] Specialist: Ann Serrano MD, [address] [place], [address]. tel:[phone] ring Provider: Kishor Saleh MD, [address] [facility] [address], [place], [address]. tel:[phone] Office/outpa tient Visit, Est [facility], [address], [place], [place], [id number], [place] tel:[phone] SEC Alexandre UNDERWOOD Professional 2 week EKC f/u (chief complaint) Epidemic keratoconjunc tivitis of both eyes 1 Juan Jose Johnson. [address] [employer] [employer], [facility] [address], [place], [place], [id number], [place]. tel:[phone] Specialist: Ann Serrano MD, [address] [place], [address]. tel:[phone] ring Provider: Kishor Saleh MD, [address] [facility] [address], [place], [address]. tel:[phone] Office/outpa tient Visit, [facility], [address] [place] [address] [address], [place], [place], [id number], tel:[phone] SEC Alexandre UNDER[place]OD Professional Complete Exam (chief complaint) Epidemic keratoconjunc tivitis of both eyesCorneal opacity of both eyes 1 Juan Jose Johnson. [address], [facility] [address], [place], [place], [id number], [place]. tel:[phone] Specialist: Ann Serrano MD, [address] [place], [address]. tel:[phone] ring Provider: Kishor Saleh MD, [address] [facility] [address], [place], [address]. tel:[phone] Family History Family Member Type Diagnosis Age At Onset Problem Family history of Diabetes m anna Payers Payer name Insurance type Covered alliance party ID Boby altman(s) R CI [id number] Social History Type Description Quantity Date Captured [...]
--- OUTSIDE RECORDS SUMMARY | 2024-10-03 02:25 | XMS_ITS | Encounter Summary ---
Author Organization [facility] Address [address] [place] [address] Care Team Providers Care Ceo Na Name Role Phone Tiffany Cox MD Primary Care Provider Unavailable Kishor Saleh MD Primary Care Provider Encounter Details Date Type Department Care Team (Late st Contact Info) Description 07/03/2023 Lab Requisition [facility] [address] [place] [id number] [place] [address] [address] [place] [id number] Social History Tobacco Use Types Packs/Day [...] Under Investigation 08/13/2024 08/13/2024 08/13/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
--- OUTSIDE RECORDS SUMMARY | 2024-10-03 02:25 | XMS_ITS | Referral Summary ---
Author Organization [facility] A Address [address] [place] [address] Care Team Providers Care Fire Fighting Equipment Specialist Name Role Phone Ann Serrano MD Unavailable [phone] Lynn Rodriguez MD Primary Care Provider Encounters Date Type Department Care Team Description 09/09/2024 Documentation [facility] at [address] [address] Tiffanie Cantu, PT PT Discharge 09/02/2024 Telephone [facility] at [address] [address] Tiffanie Cantu, PT Cancel 08/30/2024 Telephone [facility] at [address] [address] Ele Vazquez, PT Cancel 08/24/2024 Telephone [facility] [address] [place] [address] Yuki Mccain RN 08/23/2024 11:00 AM CIRCUITS ENGINEER Office Visit [facility] - [facility] [id number] [place] [address] [address], [place] [address] yLnn Rodriguez MD Mild intermittent extrinsic asthma without complication (Primary Dx); Impaired mobility; Acute hypoxic respiratory failure (HCC); History of respiratory syncytial virus (RSV) vaccination; Class 3 severe obesity due to excess calories with serious comorbidity and body mass index (BMI) of 45.0 to 49.9 in adult (HCC) 08/19/2024 Telephone [facility] [address] [place] [phone] Sarah Baird, RN Medical Question/Miscellane ous 08/19/2024 Telephone [facility] [address] [place] [phone] Sarah Baird, RN 08/18/2024 Telephone [facility] [address] [place] [phone] Sarah Baird, RN 08/17/2024 Telephone [facility] [address] [place] [phone] Sarah Baird, RN 08/09/2024 Orders Only [facility]ocrinology Metabolism and Lipid [address] [facility] 13th [place] [address] [place] [address] Stephanie Sandoval RMA Uncontrolled type 2 diabetes mellitus with hyperglycemia (HCC) 08/09/2024 Telephone [facility] at [address] [address] Ele Vazquez, PT Cancel 08/05/2024 Telephone [facility] at [address] [address] Ele Vazquez, PT Cancel (excused) 08/04/2024 Telephone [facility] at [address] [address] Tiffanie Cantu, PT Appointment 07/29/2024 Plan of Care Documentation [facility] at [address] [address] 07/29/2024 12:00 PM CIRCUITS ENGINEER Therapy [facility] at [address] [address] Tiffanie Cantu, PT Impaired mobility (Primary Dx); Lymphedema 07/13/2024 9:00 AM CIRCUITS ENGINEER Office Visit [facility] Endocrinology Metabolism and Lipid [address] [facility] 13th [place] [address] [place] [id number] Shirley Teixeira PA Uncontrolled type 2 diabetes mellitus with hyperglycemia (HCC) (Primary Dx); Morbid obesity with BMI of 50.0-59.9, adult (HCC); Benign hypertension; Mixed hyperlipidemia; Vitamin D deficiency; 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; shelter (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) from Last [...] spray each nostrilAs needed, Reported on 01/17/2022 ibuprofen (ADVIL,MOTRIN) 600 mg tabletIndication s:Acute sinusitis, recurrence not specified, unspecified location Take 1 tablet (600 mg total) by mouth every 6 (six) hours as needed for pain, fever or headaches (pain) 60 tablet 023 Active cetirizine (ZyrTEC) 10 mg tabletIndication s:Acute sinusitis, recurrence not specified, unspecified location Take 1 tablet (10 mg total) by mouth daily 30 tablet 023 Active clobetasoL (TEMOVATE) 0.05 % ointment APPLY TO AFFECTED AREA(S) TWICE DAILY FOR 2 WEEKS 023 Active cyclobenzaprine (FLEXERIL) 5 mg tablet Take 2 tablets (10 mg total) by mouth nightly as needed 023 Active hydroxychloroqui ne (PLAQUENIL) 200 mg tablet Take 1 tablet (200 mg total) by mouth 2 (two) times a day Active loratadine (CLARITIN) 10 mg tablet Take [...] by mouth 2 (two) times a day Active lisinopriL (PRINIVIL,ZESTRI L) 20 mg tablet TAKE 1 TABLET BY MOUTH DAILY 90 tablet 3 024 Active atorvastatin (LIPITOR) 20 mg tablet TAKE 1 TABLET BY MOUTH DAILY 90 tablet 3 Active insulin glargine (LANTUS) 100 unit/mL (3 mL) pen for injectionIndicat ions:Uncontrolle d type 2 diabetes mellitus with hyperglycemia (HCC) 45 units twice daily 024 Active LYUMJEV 100 unit/mL pen for injectionIndicat ions:Uncontrolle d type 2 diabetes mellitus with hyperglycemia (HCC) Inject 15 units before meals plus sliding scale 1 unit for every 25 points >150 ; MDD is 55 units. Active predniSONE (DELTASONE) 10 mg tablet Active [...] capsule Active Protonix 40 mg EC tablet Active pamabrom (DIUREX MAX ORAL) Active gabapentin (NEURONTIN) 300 mg capsule Active [...] 400 each 3 024 Active blood-glucose sensor ([employer] G7 Sensor) deviceIndication s:Uncontrolled type 2 diabetes mellitus with hyperglycemia (HCC),lobsterman (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) Use for [...] Active cyclobenzaprine (FLEXERIL) 10 mg tablet 3 024 Active FOLIC ACID ORAL Active gabapentin Active albuterol HFA (ProAir HFA) 90 mcg/actuation inhaler Inhale 2 puffs every 4 (four) hours as needed for wheezing or shortness of breath 8.5 g 11 025 2025 Active albuterol 2.5 mg /3 mL (0.083 %) nebulizer solution USE 1 VIAL VIA NEBULIZER EVERY 6 HOURS NEEDED FOR WHEEZING (CAST IRON DIPPER RECOMMENDS NOT EXCEEDING 4 VIALS/DAY) 150 mL 3 025 Active albuterol HFA (ProAir HFA) 90 mcg/actuation inhaler Inhale 2 puffs every 4 (four) hours as needed for wheezing or shortness of breath 8.5 g 1 020 2024 Discontinued(R eorder) albuterol 2.5 mg /3 mL (0.083 %) nebulizer solution Take 3 mL (2.5 mg total) by nebulization every 6 (six) hours as needed for wheezing 75 mL 1 024 2024 Discontinued Active Problems Problem Noted Date Diagnosed Date Uncontrolled diabetes mellitus with hyperglycemi a 08/14/2024 Acute hypoxic respiratory failure 08/13/2024 Assessment & Plan (08/26/2024 6:09 PM CIRCUITS ENGINEER): Recent hospitalization likely for CAP followed by RSV Symptoms resolved Impaired mobility 07/29/2024 shelter (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 07/13/2024 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 07/13/2024 Assessment & Plan (07/13/2024 12:22 PM CIRCUITS ENGINEER): - Further complicates diabetes management Need for vaccination 04/06/2024 Assessment & Plan (04/06/2024 4:14 PM CDT): Received pneumonia vaccine today history of pneumonia currently no complaints last bout in 08/2023 Head trauma 09/04/2022 Assessment & Plan (09/04/2022 2:35 PM CIRCUITS ENGINEER): No signs of neurological abnormality on examination [...] booster Assessment & Plan (06/24/2021 3:28 PM CIRCUITS ENGINEER): Pito vaccine 10/05/2020 and Moderna booster Jun 2021 Major depressive disorder 04/22/2021 Assessment & Plan (01/06/2024 9:09 AM CDT): Stable on current medication regimen. Assessment & Plan (01/17/2022 10:21 AM CDT): Stable on current medication regimen. Assessment & Plan (07/17/2021 2:07 PM CIRCUITS ENGINEER): Better controlled on venlafaxine. Assessment & Plan (04/22/2021 8:25 AM CDT): Restart venlafaxine and warned of side effects and call back if any develop or if no improvement. Type 2 diabetes mellitus with hyperlipidemia 06/2020 Assessment & Plan (01/06/2024 9:09 AM CDT): A1c above goal. Will start Mounjaro soon. Continue other medications as directed by her tagman. Diet exercise discussed. Hopefully may be able to wean prednisone in the near future as well. Assessment & Plan (06/15/2023 10:48 AM CIRCUITS ENGINEER): She knows that the steroids will exacerbate her hyperglycemia and should be in contact with her tagman for management. Assessment & Plan (06/08/2023 5:26 PM CIRCUITS ENGINEER): Poor control of her diabetes prior to this hospitalization and even worse now on prednisone. Follow-up with her tagman for management. Diet exercise weight loss recommended. Assessment & Plan (01/21/2023 9:50 AM CDT): Blood sugars remain above goal. Hopefully the recent addition of mounjaro will help significantly. Discuss up titration of this and her mealtime insulin with her tagman. Diet exercise discussed. Check A1c and fasting blood sugar before next visit. Assessment & Plan (08/02/2022 12:16 PM CIRCUITS ENGINEER): A1c poorly controlled. Importance of diet exercise weight loss discussed at length. Continue her Ozempic and insulin and needs to contact her tagman soon as possible for guidance on further therapy. Assessment & Plan (01/17/2022 10:22 AM CDT): Patient aware A1c grossly uncontrolled. Must work on diet exercise and weight loss. She has to get back on her insulin and should discuss this today with her tagman. Risks posed her health with poor glycemic control discussed. Assessment & Plan (07/13/2020 8:34 AM CIRCUITS ENGINEER): A1c above goal. Importance of diet exercise weight loss discussed. Continue current medication regimen and follow-up with her tagman as they direct. 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 Unfortunately lab work and skin biopsy inconclusive. Discussed possible rheumatology 2nd opinion here at [facility] and patient will call back if desired. Assessment & Plan (06/15/2023 10:48 AM CIRCUITS ENGINEER): Certainly making a case for underlying vasculitis [...] condition. Assessment & Plan (06/20/2020 9:35 AM CIRCUITS ENGINEER): Unclear etiology but I am thinking of [...] 07/08/2019 Assessment & Plan (08/26/2024 6:10 PM CIRCUITS ENGINEER): Body mass index is 49.1 kg/m . BMI Follow-up includes: nutrition counseling, exercise counseling, and education provided. Assessment & Plan (07/13/2024 12:20 PM CIRCUITS ENGINEER): - Increase Mounjaro to 10 mg weekly [...] tolerated. Assessment & Plan (06/08/2023 5:23 PM CIRCUITS ENGINEER): Patient is encouraged to lose weight with a combination of caloric reduction and increased exercise. Various strategies discussed. The long-term risks associated with continued morbid obesity discussed. Assessment & Plan (09/04/2022 2:34 PM CIRCUITS ENGINEER): Patient is encouraged to lose weight with a combination of caloric reduction and increased exercise. Various strategies discussed. The long-term risks associated with continued morbid obesity discussed. Assessment & Plan (08/02/2022 12:16 PM CIRCUITS ENGINEER): Patient is encouraged to lose weight with [...] discussed. Assessment & Plan (07/13/2020 8:34 AM CIRCUITS ENGINEER): Patient is encouraged to lose weight with a combination of caloric reduction and increased exercise. Various strategies discussed. The long-term risks associated with continued morbid obesity discussed. Assessment & Plan (06/20/2020 9:35 AM CIRCUITS ENGINEER): Patient is encouraged to lose weight with a combination of caloric reduction and increased exercise. Various strategies discussed. The long-term risks associated with continued morbid obesity discussed. Assessment & Plan (07/08/2019 8:44 AM CIRCUITS ENGINEER): Patient is encouraged to lose weight with a combination of caloric reduction and increased exercise. Various strategies discussed. The long-term risks associated with continued morbid obesity discussed. Irregular menses 06/03/2019 Allergic rhinitis 07/05/2018 Assessment & Plan (02/23/2023 1:30 PM CDT): Nasal saline spray (Simply saline, [employer], [place], [place]) 2 second sprays or 2 squeezes into [...] daily Assessment & Plan (07/17/2021 2:07 PM CIRCUITS ENGINEER): Claritin montelukast. Assessment & Plan (04/22/2021 8:25 AM CDT): Currently using Claritin and montelukast. She has not been trying Flonase as her nose is being to congested. Recommended sinus rinses her using a hot warm shower. Could also try Afrin for few days. Assessment & Plan (07/08/2019 8:43 AM CIRCUITS ENGINEER): Add montelukast to her Claritin. She struggles with nasal sprays due to chronic congestion. Assessment & Plan (07/05/2018 9:24 AM CIRCUITS ENGINEER): Try Afrin for 3 days along with initiating fluticasone. Stop Afrin in3 days and continue fluticasone indefinitely. continue Zyrtec. Mixed hyperlipidemia 07/02/2017 Assessment & Plan (07/13/2024 12:21 PM CIRCUITS ENGINEER): - Last LDL 103, TG 308, TC [...] triglycerides. Assessment & Plan (09/12/2023 8:12 PM CIRCUITS ENGINEER): Continue statin and optimize glycemic control Assessment & Plan (02/16/2023 8:14 PM CDT): Continue statin and optimize glycemic control Assessment & Plan (01/21/2023 9:50 AM CDT): Continue her atorvastatin and work on diet exercise and check lipids and LFTs before next visit. Assessment & Plan (08/02/2022 12:15 PM CIRCUITS ENGINEER): Well controlled on current therapy and will check a lipid panel and LFTs in 6 months. Assessment & Plan (01/17/2022 10:21 AM CDT): Well controlled on current therapy and will check a lipid panel and LFTs in 6 months. Assessment & Plan (07/17/2021 2:06 PM CIRCUITS ENGINEER): Well controlled on current therapy and will check a lipid panel and LFTs in 6 months. Assessment & Plan (06/24/2021 3:28 PM CIRCUITS ENGINEER): Continue statin and optimize glycemic control Assessment & Plan (12/19/2020 7:53 AM CDT): Continue statin and optimize glycemic control Assessment & Plan (07/13/2020 8:34 AM CIRCUITS ENGINEER): Well controlled on current therapy and will check a lipid panel and LFTs in 6 months. Assessment & Plan (06/08/2020 8:31 AM CIRCUITS ENGINEER): LDL within goal. Continue statin and optimize glycemic control Assessment & Plan (07/08/2019 8:42 AM CIRCUITS ENGINEER): Well controlled on current therapy and will check a lipid panel and LFTs in 12 months. Assessment & Plan (09/01/2018 2:22 PM CIRCUITS ENGINEER): Continue statin, optimize glycemic control Assessment & Plan (07/05/2018 9:23 AM CIRCUITS ENGINEER): Well controlled on current therapy and will check a lipid panel and LFTs in 6 months. Assessment & Plan (08/26/2017 4:27 PM CIRCUITS ENGINEER): Start atorvastatin and check lipids and LFTs in 3-4 months. Call back for results. Vitamin D deficiency 07/02/2017 Assessment & Plan (07/13/2024 12:22 PM CIRCUITS ENGINEER): - Last Vitamin D 42 (12/2023), replete [...] week Assessment & Plan (09/12/2023 8:12 PM CIRCUITS ENGINEER): Continue long-term supplement Assessment & Plan (02/16/2023 8:14 PM CDT): Continue long-term supplement Assessment & Plan (08/02/2022 12:15 PM CIRCUITS ENGINEER): Continue current supplementation and check level in 1 year. Assessment & Plan (07/17/2021 2:06 PM CIRCUITS ENGINEER): Continue current supplementation and check level in 1 year. Assessment & Plan (06/24/2021 3:29 PM CIRCUITS ENGINEER): Continue long-term supplement Assessment & Plan (12/19/2020 7:53 AM CDT): Continue long-term supplement Assessment & Plan (07/13/2020 8:33 AM CIRCUITS ENGINEER): Continue current supplementation and check level in 1 year. Assessment & Plan (06/08/2020 8:31 AM CIRCUITS ENGINEER): Vitamin-D level within goal, continue chronic supplement Assessment & Plan (07/08/2019 8:42 AM CIRCUITS ENGINEER): Continue current supplementation and check level in 1 year. Assessment & Plan (06/03/2019 8:24 AM CDT): Recently ran out of supplement, so we will restart and check her level today. Also check B12 Assessment & Plan (09/01/2018 2:22 PM CIRCUITS ENGINEER): Continue supplement Assessment & Plan (07/05/2018 9:23 AM CIRCUITS ENGINEER): Continue current supplementation and check level in 1 year. Assessment & Plan (08/26/2017 4:26 PM CIRCUITS ENGINEER): Continue current supplementation and check level in 1 year. Uncontrolled type 2 diabetes mellitus with hyper glycemia 03/24/2016 Overview (07/05/2018): Cannot tolerate metformin, glipizide due to nausea/vomiting; Invokana works better than jardiance. Does not tolerate acarbose Assessment & Plan (08/26/2024 6:10 PM CIRCUITS ENGINEER): Assessment & Plan (07/13/2024 12:20 PM CIRCUITS ENGINEER): - Diabetes is complicated by hyperlipidemia, hypertension, morbid obesity and chronic steroid use. Uncontrolled. Lab Results Component Value Date HGBA1C 11.7 07/13/2024 Per [place] [employer], goal A1c is less 7% [...] in prescriptions for both Dexcom G7 and [employer] 3 CGM for olivares checking. Also [...] Return visit 3 months to see the DISPENSING OPTICIAN APPRENTICE/PA, 6 months to see me. Assessment & [...] Component Value Date HGBA1C 12.5 11/17/2023 Per [place] [employer], goal A1c is less 7% [...] that I am available via phone or [employer] if they have any concerns for hypo/hyperglycemia, medication refills, etc. Assessment & Plan (11/18/2023 8:23 AM CDT): - Diabetes is complicated by HTN, HLD, steroid use, hyperglycemia and obesity. Uncontrolled. Lab Results Component Value Date HGBA1C 12.5 11/17/2023 Per [place] [employer], goal A1c is less 7% without significant hypoglycemia. - Management Goal: re-start and adherence to medication regimen - Continue current medication regimen at this time. - Patient called local pharmacy to confirm that they do have prescriptions for her Semglee. She is going to sheepskin pickler today after this visit. - Insurance does [...] etc. Assessment & Plan (09/12/2023 8:13 PM CIRCUITS ENGINEER): Very high glucoses; multifactorial including steroid therapy, [...] daily. Assessment & Plan (06/24/2021 3:29 PM CIRCUITS ENGINEER): Much improved but needs a little more basal insulin. Assessment & Plan (12/19/2020 7:53 AM CDT): Multiple medications, but now requires insulin. We can gradually adjust her Lantus based on her clinical response. Assessment & Plan (06/08/2020 8:32 AM CIRCUITS ENGINEER): Glucoses somewhat better now that she is [...] motivator. Assessment & Plan (07/08/2019 8:43 AM CIRCUITS ENGINEER): Continue increased dose of Ozempic and also continue Invokana. Importance of dietary changes increase exercise weight loss discussed. Follow-up with her tagman as they direct. Assessment & Plan (06/03/2019 8:25 AM CDT): Somewhat suboptimal, would benefit from increasing Ozempic and continuing efforts with diet and lifestyle. Needs follow-up labs Assessment & Plan (09/01/2018 2:22 PM CIRCUITS ENGINEER): Glucoses a little high, but she has bruising with Victoza so she may benefit by changing to weekly Ozempic, which is a little stronger, as well. Jardiance is been ineffective, so we may need to provide preauthorization for Invokana Assessment & Plan (07/05/2018 9:23 AM CIRCUITS ENGINEER): A1c above goal. We stressed importance of increased exercise, reduce calories, weight loss. Could consider switching Victoza to ozempic. Otherwise does not tolerate metformin or sulfonylureas. May need insulin soon. She is directed to follow up with her tagman more quickly than her next scheduled appointment in November. Assessment & Plan (08/26/2017 4:26 PM CIRCUITS ENGINEER): Continue current medication regimen and follow up with her tagman as they direct. Low carb diet weight loss recommended. Check blood sugars once daily. Start atorvastatin and check lipids and LFTs in 3-4 months. Anxiety state 12/17/2013 Overview (11/07/2016): ANXIETY STATE NOS Benign hypertension 12/17/2013 Overview (11/07/2016): BENIGN HYPERTENSION Assessment & Plan (07/13/2024 12:21 PM CIRCUITS ENGINEER): - Above goal today - Encouraged her [...] monitor. Assessment & Plan (06/08/2023 5:25 PM CIRCUITS ENGINEER): Stop amlodipine with current issues of swelling. Pressure currently well controlled and should monitor at home Assessment & Plan (01/21/2023 9:49 AM CDT): Blood pressure well controlled on lisinopril Assessment & Plan (09/04/2022 2:34 PM CIRCUITS ENGINEER): Blood pressure well controlled on her lisinopril. Assessment & Plan (08/02/2022 12:15 PM CIRCUITS ENGINEER): Increase lisinopril to 20 mg daily. Monitor blood pressure at home call back if no improvement. Assessment & Plan (01/17/2022 10:21 AM CDT): Well controlled on the current regimen. Avoidance of salt, proper body weight, and routine exercise recommended. Assessment & Plan (07/17/2021 2:06 PM CIRCUITS ENGINEER): Well controlled on the current regimen. Avoidance of salt, proper body weight, and routine exercise recommended. Assessment & Plan (04/22/2021 8:24 AM CDT): Well controlled on the current regimen. Avoidance of salt, proper body weight, and routine exercise recommended. Assessment & Plan (07/13/2020 8:34 AM CIRCUITS ENGINEER): Well controlled on the current regimen. Avoidance of salt, proper body weight, and routine exercise recommended. Assessment & Plan (07/08/2019 8:42 AM CIRCUITS ENGINEER): Well controlled on the current regimen. Avoidance of salt, proper body weight, and routine exercise recommended. Assessment & Plan (09/01/2018 2:21 PM CIRCUITS ENGINEER): Blood pressure close to target, working on diet and lifestyle Assessment & Plan (07/05/2018 9:23 AM CIRCUITS ENGINEER): Well controlled on the current regimen. Avoidance of salt, proper body weight, and routine exercise recommended. Assessment & Plan (08/26/2017 4:25 PM CIRCUITS ENGINEER): Well controlled on the current regimen. Avoidance of salt, proper body weight, and routine exercise recommended. Anemia 12/29/2012 Extrinsic asthma 08/19/2012 Overview (06/03/2019): Description: frequent flares Assessment & Plan (08/26/2024 6:08 PM CIRCUITS ENGINEER): Recent exacerbation due to CAP followed by RSV Symptoms improved Continue present plan and medication--albuterol prn, montelukast Assessment & Plan (07/13/2020 8:36 AM CIRCUITS ENGINEER): Doing well on her Symbicort. Okay to discontinue and use albuterol only as needed. Restart Symbicort if uses her albuterol more than 2 times a week. Sleep apnea syndrome 04/01/2012 Overview (11/12/2017): Description: CPAP Assessment & Plan (01/06/2024 9:08 AM CDT): Patient is compliant with the CPAP machine and gets symptomatic relief. Assessment & Plan (08/02/2022 12:15 PM CIRCUITS ENGINEER): Patient is compliant with the CPAP machine and gets symptomatic relief. Assessment & Plan (07/17/2021 2:06 PM CIRCUITS ENGINEER): Repeat sleep study confirmed obstructive sleep apnea [...] syndrome. Assessment & Plan (07/13/2020 8:34 AM CIRCUITS ENGINEER): Patient is compliant with the CPAP machine and gets symptomatic relief. Assessment & Plan (07/08/2019 8:42 AM CIRCUITS ENGINEER): Patient is compliant with the CPAP machine [...] legs Assessment & Plan (06/15/2023 10:47 AM CIRCUITS ENGINEER): Improved after addition of doxycycline to her Bactrim. Call back if symptoms worsen after doxycycline runs out Assessment & Plan (06/08/2023 5:25 PM CIRCUITS ENGINEER): Seems like cellulitis slow to improve either [...] yearly. Colonoscopy due March 2027. Follow-up the co founder and chief strategy officer for breast exam pelvic exam as they direct. Will see her back in about 6 months sooner if needed. Assessment & Plan (08/02/2022 12:17 PM CIRCUITS ENGINEER): Flu shot each May. Tetanus booster every 10 years. Pneumovax completed. COVID booster recommended. Mammogram yearly. Colonoscopy due March 2027. Follow-up the co founder and chief strategy officer for breast exam pelvic exam as they direct. Will see her back in 6 months with lab sooner if needed. Assessment & Plan (07/17/2021 2:08 PM CIRCUITS ENGINEER): Flu shot each May. Tetanus booster every 10 years. Pneumovax completed. COVID vaccine completed. Mammogram yearly. Colonoscopy ordered and she should verify coverage before proceeding. Follow-up the co founder and chief strategy officer for breast exam and pelvic exam as they direct. We will see her back in 1 year for physical and fasting lab sooner if needed. Assessment & Plan (07/13/2020 8:35 AM CIRCUITS ENGINEER): Flu shot each May. Tetanus booster every 10 years. She has had a Pneumovax. Mammogram was abnormal back in August and she has delayed follow-up studies until now and she is urged to get her diagnostic and ultrasound studies done at her earliest convenience and she is aware of the risks posed her health with delay in proceeding. Follow-up the co founder and chief strategy officer for breast exam and pelvic exam as they direct. We will see her back in 1 year for wellness visit fasting lab sooner if needed. Assessment & Plan (07/08/2019 8:43 AM CIRCUITS ENGINEER): Flu shot each May. Tetanus booster every 10 years. Mammogram ordered. Will see her back in 1 year for physical and fasting lab sooner if needed. Assessment & Plan (07/05/2018 9:24 AM CIRCUITS ENGINEER): Tetanus booster today. Flu shot each May. Mammogram ordered. Patient should follow-up the co founder and chief strategy officer breast exam and pelvic exam. We will see her back in 1 year for wellness visit fasting lab sooner if needed. Assessment & Plan (08/26/2017 4:27 PM CIRCUITS ENGINEER): Flu shot each May. Tetanus booster every 10 years. See her co founder and chief strategy officer for breast exam mammogram and Pap smear is a direct. We will see her back in 1 year with fasting lab sooner if needed. Morbid obesity 08/26/2017 07/05/2018 Assessment & Plan (08/26/2017 4:28 PM CIRCUITS ENGINEER): Patient is encouraged to lose weight with [...] 92 02/11 echo (TDS): EF 55%, trace MRLAY 24 Edema 09/21/2011 08/26/2024 Immunizations Immunization Administration Dates Next Due Influenza, Quadrivalent, Rosita l Culture-based MDCK, Preservative Free, Antibiotic Free, Intramuscular 05/13/2023,05/23/2022 Influenza, Quadrivalent, Spl it, Intramuscular 05/03/2015 Influenza, Quadrivalent, Spl it, Preservative Free, Intramuscular 05/16/2020,05/07/2018 Influenza, Unspecified 05/16/2021,2020,04/22/2021(Defer red: Patient Refused),03/19/2021(Deferred: Patient Refused),05/12/2019,05/07/2017 Tapvalue (J&J) SARS-CoV-2 Vaccination 10/05/2020 Pneumococcal Conjugate Pcv20 [...] on file Legal Sex Female 11:54 PM CIRCUITS ENGINEER Gender Identity Female 09/19/2020 8:37 AM CIRCUITS ENGINEER Sexual Orientation Straight 09/19/2020 8: 37 AM CIRCUITS ENGINEER Last Filed Vital Signs Vital Sign Reading Time Taken Comments Blood Pressure 124/88 08/23/2024 10:35 AM CIRCUITS ENGINEER Pulse 91 08/23/2024 10:35 AM CIRCUITS ENGINEER Temperature 36.5 C (97.7 F) 08/23/2024 10:35 AM CIRCUITS ENGINEER Respiratory Rate 24 08/23/2024 10:35 AM CIRCUITS ENGINEER Oxygen Saturation 98% 08/23/2024 10:35 AM CIRCUITS ENGINEER Inhaled Oxygen Concentration - - Weight 138 kg (304 lb 3.8 oz) 08/23/2024 10:35 A M CIRCUITS ENGINEER Height 167.6 cm (5' 6 ) 08/23/2024 10:35 AM CIRCUITS ENGINEER Body Mass Index 49.1 08/23/2024 10:35 AM CIRCUITS ENGINEER Plan of Treatment Not on file Procedures Procedure Name Priority Date/Time Associated Diagnosis Comments POCT HEMOGLOBIN A1C Routine 07/13/2024 9 :08 AM CIRCUITS ENGINEER Uncontrolled type 2 diabetes mellitus with hyperglycemia (HCC) POCT GLUCOSE 74230 Routine 07/13/2024 9: 08 AM CIRCUITS ENGINEER Uncontrolled type 2 diabetes mellitus with hyperglycemia [...] Results * POCT glucose (07/13/2024 9:08 AM CIRCUITS ENGINEER) Glucose Blood, POC 161 mg/dL Blood 07/13/2024 9:08 AM CIRCUITS ENGINEER Result [facility] Shirley CHUN POINT OF CARE TEST ORDERA BLES Final Result * POCT hemoglobin A1c (07/13/2024 9:08 AM CIRCUITS ENGINEER) Hemoglobin A1C, POC 11.7 4.0 - 5.6 % Blood 07/13/2024 9:08 AM CIRCUITS ENGINEER Result [facility] Shirley CHUN POINT OF CARE TEST ORDERA BLES Final Result * (ABNORMAL) Comprehensive metabolic panel (12/29/2023 1:40 PM CDT) Glucose 121(H) 65 - 99 mg/dL [facility] Comment: Fasting reference interval For someone without known diabetes, a glucose value between 100 and 125 mg/dL is consistent with prediabetes and should be confirmed with a follow-up test. BUN 15 7 - 25 mg/dL [facility] Creatinine 0.69 0.50 - 0.99 mg/dL [facility] eGFR 108 > OR = 60 mL/min/1.7 3m2 [facility] BUN/creat ratio SEE NOTE: 6 - 22 (calc) [facility] Comment: Not Reported: BUN and Creatinine are within reference range. Sodium 138 135 - 146 mmol/L [facility] Potassium, pl 4.1 3.5 - 5.3 mmol/L [facility] [place] Chloride 97(L) 98 - 110 mmol/L [facility] CO2 30 20 - 32 mmol/L [facility] Calcium 9.7 8.6 - 10.2 mg/dL [facility] Protein, sr 7.0 6.1 - 8.1 g/dL [facility] Albumin 4.3 3.6 - 5.1 g/dL [facility] GLOBULIN 2.7 1.9 - 3.7 g/dL (calc) [facility] Alb/glob ratio 1.6 1.0 - 2.5 (calc) [facility] Bilirubin, total 0.6 0.2 - 1.2 mg/dL [facility] Alk phos 46 31 - 125 U/L [facility] AST 13 10 - 35 U/L [facility] ALT (SGPT) 32(H) 6 - 29 U/L [facility] Blood 12/29/2023 1:40 PM CDT 12/29/2023 1:42 PM CDT Narrative [facility] - 12/30/2023 3:37 PM CDT FASTING:YES FASTING: YES Kishor Saleh MD LAB BLOOD ORDERABLES Final R esult Performing Organization Address City/[facility]/ZIP Co de Phone Number [facility] [address] [place] [address] [place] [address] * Albumin Creatinine Ratio, Urine (12/29/2023 12:26 PM CDT) Albumin Ur 14.1 mg/L Comment: Interpretive Data No reference range established. Current interpretive data was last revised 2018. Creatinine Ur 117.0 mg/dL [facility] Comment: Interpretive Data No reference range established. Current interpretive data was last revised 2018. Albumin Creatinine Ratio, Ur 12 1 - 29 mg/g [facility] Urine 12/29/2023 12:2 6 PM CDT 12/29/2023 1:04 PM CDT Shirley CHUN LAB URINE ORDERABLES Flora l Result Performing Organization Address City/[facility]/ZIP Co de Phone Number [facility] Department [place] [address] * (ABNORMAL) Lipid panel (12/29/2023 12:26 PM [...] revised on 2018. Triglycerides 265(H) <=149 mg/dL [facility] Comment: Interpretive Data Ages < or [...] revised on 2018. HDL 87 >=40 mg/dL [facility] Comment: Interpretive Data Ages < or [...] 2018. LDL, calculated 68 <=129 mg/dL [facility] Comment: Interpretive Data Ages < or [...] revised on 2018. Non-HDL Cholesterol 121 mg/dL [facility] Comment: Interpretive Data Ages < or = [...] last revised on 2018. Chol/HDL ratio 2 [facility] Blood 12/29/2023 12:2 6 PM CDT 12/29/2023 1:04 PM CDT Shirley CHUN LAB BLOOD ORDERABLES Flora dowd Result [facility] Department [place] [address] * Screening Mammogram Bilateral W Vincenzo (12/29/2023 9:26 AM CDT) Anatomical Region Laterality Modality Breast Bilateral Mammography Narrative 12/30/2023 2:01 PM CDT Mammogram Technique: Bilateral Digital Breast Tomosynthesis, Bilateral C-view 2D Screening mammogram. Views obtained: bilateral craniocaudal and bilateral mediolateral oblique. Computer Aided Detection was performed. Mammogram Findings: The present examination has been compared to prior imaging studies performed at [facility] on 01/01/2022 and 02/25/2023, and at [facility] [place], [place] on 09/12/2020. There are scattered areas [...] compared to prior imaging studies performed at [facility] on 01/01/2022 and 02/25/2023, and at [facility] [place], [place] on 09/12/2020. There are scattered areas of fibroglandular density. There is no suspicious abnormality in either breast. Impression: There is no mammographic evidence of malignancy. Annual screening mammography is recommended. OVERALL FINAL ASSESSMENT: BI-RADS CATEGORY 1: Negative. Kishor Saleh MD IMG MAMMO PROCEDURES Final R esult * Diabetic Eye Exam (11/10/2022) Generic External Data Provider [facility] MAINTENANC E Final Result * COLONOSCOPY (04/02/2022 9:28 AM CDT) Anatomical Region Laterality Modality Other Narrative Procedure Note Ad Camacho MD - 04/02/2022 9:28 AM CDT [facility] Patient Name: Camila Huitron Procedure Date: 04/02/2022 9:28 AM Date of : 1975 Admit Type: Outpatient Age: 46 Gender: Female Attending MD: Ad Camacho M.D. Room: [facility] ENDOSCOPY ROOM 2 Note Status: Finalized [...] scope was passed under direct vision. TheColonoscope [id number] was introduced through the anus and advanced [...] 9:28 AM Procedure Code(s): --- Professional --- 80829, Colonoscopy, flexible; with biopsy, single or multiple Diagnosis Code(s): --- Professional --- Z12.11, Encounter for screening for malignant neoplasm of colon D12.3, Benign neoplasm of transverse colon (hepatic flexure orsplenic flexure) D12.4, Benign neoplasm of descending colon D12.8, Benign neoplasm of rectum CPT copyright 2020 [employer]. All rights reserved. The codes documented in this report are preliminary and upon moto mix operator reviewmay be revised to meet current compliance requirements. Recognized by the [employer] for promoting quality in endoscopy Ad Camacho MD ENDOSCOPY PROCEDURES Final Resul t * Diabetic Foot Exam (03/26/2021) Impressions Art Staley MA - 03/26/2021 In care everywhere Historical Provider HEALTH MAINTENANCE Final Result from Last 3 Months or Most Recently Relevant to Health Maintenance Insurance Materialise [facility]/PPO Address: [address] [place] [phone] [facility] H[facility]/PPO Address: [address] [place] [phone] Advance Directives For more information, please contact: [phone] * Full Code (Latest Code Status on File) Date Activated Date Inactivated Comments 04/02/2022 9:27 AM 04/02/2022 4:47 PM * Full Code Date Activated Date Inactivated Comments 04/02/2022 9:27 AM 04/02/2022 9:27 AM Care Teams Fire Fighting Equipment Specialist Relationship Specialty [place] [address] [facility] [address] [place] [address] PCP - General Internal Medicine 04/06/24 Ann Serrano MD Referring Physician Endocrinology Diabetes & Metabolism 06/08/20
--- OUTSIDE RECORDS SUMMARY | 2024-10-03 02:25 | XMS_ITS | Encounter Summary ---
Author Organization [facility] Address [address] [place] [address] Care Team Providers Care Outcomes Manager Name Role Phone Tiffany Cox MD Primary Care Provider Unavailable Kishor Saleh MD Primary Care Provider Encounter Details Date Type Department Care Team (Late st Contact Info) Description 07/03/2023 Lab Requisition [facility] - DermPath Lab [address] [place] [address] [place] [address] [address] Social History Tobacco Use Types [...] Diagnosis Comments DERMATOPATHOLOGY Routine 07/01/2023 3:33 AM STAFF NURSE documented in this encounter Results * DERMATOPATHOLOGY (07/01/2023 3:33 AM STAFF NURSE) Case Report Dermatopathology Report Case: [id number] Authorizing Provider: Kendrick Christopher MD Collected: 07/01/2023 03:33 AM Ordering Location: [facility] Lab Received: 07/03/2023 12:12 PM Pathologist: Bella Schwab MD Specimen: Skin, right inferior knee 3:45 PM [facility] DERMATOPATHOLOGY [facility]ORATORY Final Diagnosis Specimen A. SKIN, right inferior knee: STASIS DERMATITIS (L30.8) DERMAL FIBROSIS (L90.5) (see microscopic description) 3 3:45 PM [facility] DERMATOPATHOLOGY [facility]ORATORY Clinical History Rash; R/O Leukocytoclastic Vasculitis, Livedo Reticularis 3 3:45 PM [facility] DERMATOPATHOLOGY [facility]ORATORY Gross Description Specimen A: Received is one formalin filled container labeled with the patient's name and designated right inferior knee. The specimen consists of a punch biopsy measuring 6x5x6 mm. Jar 0. 3 3:45 PM [facility] DERMATOPATHOLOGY LABORATORY Microscopic Description Specimen A. SKIN, [...] were obtained and reviewed. 3 3:45 PM [facility] DERMATOPATHOLOGY LABORATORY Disclaimer An external and internal positive and negative controls are appropriate for the histochemical, immunohistochemical and immunofluorescence stain(s) in this case (if any), except where stated explicitly. The performance characteristics of the stain(s) cited in this report were developed and its performance characteristic determined by the Dermatopathology Laboratory at [facility], directed by Dr. Arnol Perea. These tests need not be, and therefore are not, approved by the [place] Food and Drug Administration. The tests are used for clinical purposes. Billing Codes Specimen Charges Stain Charges 35677 1 25791 1 3 3:45 PM [facility] DERMATOPATHOLOGY [facility]ORATORY Embedded Images 3 3:45 PM [facility] DERMATOP[facility]Y [facility]ORATORY Pathology/Cytolo gy TISSUE SPECIMEN FROM SKIN / Unknown 07/01/2023 3:33 AM STAFF NURSE 07/03/2023 12:12 PM STAFF NURSE Kendrick Christopher MD LAB - PATHOLOGY/CY TOLOGY ORDERABLES DERMATOPATHOLOGY LABORATORY [facility] - Department of Dermatology [facility] [address] [facility], [address] [phone] documented in this encounter Visit Diagnoses Not on filedocumented in this encounter Additional Health Concerns Infection Onset Date Last Indicated Resolved Time COVID-19 Under Investigation 08/13/2024 08/13/2024 08/13/2024 11:30 PM STAFF NURSE documented as of this encounter Care Teams Outcomes Manager Relationship Specialty Start Date End Date Tiffany Cox MD PCP - General Internal Medicine 05/16/13 07/30/23 Kishor Saleh MD 2 [facility] [address] [address] PCP - General Internal Medicine 07/31/23 documented as of this encounter
--- OUTSIDE RECORDS SUMMARY | 2024-10-03 02:25 | XMS_ITS | Clinical Summary ---
Author Organization [facility] Address [address] [place] [address] Phone Care Team Providers Care Junior Bookkeeper Name Role Phone Masoud Hayes MD Primary Care Provider [phone] Allergies Active Allergy Reactions Criticality Noted Date [...] mouth daily. 30 Tablet 08/13/2022 2:47 PM RADIOTELEPHONE OPERATOR 3 Active amLODIPine (NORVASC) 2.5 mg tablet Take 1 Tablet (2.5 mg) by mouth daily in the morning. 90 Tablet 05/29/2023 5:55 PM CDT 3 Active cyclobenzaprine (FLEXERIL) 5 mg Tablet TAKE 1-2 TABLETS BY MOUTH NIGHTLY TO REDUCE MUSCLE CRAMPS 60 Tablet 3 07/10/2023 3:38 PM RADIOTELEPHONE OPERATOR 3 Active hydroxychloroqu ine (PLAQUENIL) 200 mg tablet TAKE 2 TABLETS BY MOUTH ONCE DAILY 60 Tablet 3 07/10/2023 3:38 PM RADIOTELEPHONE OPERATOR 3 Active mycophenolate mofetil (CELLCEPT) 500 mg tablet TAKE 3 TABLETS BY MOUTH TWICE DAILY 180 Tablet 4 07/10/2023 3:38 PM RADIOTELEPHONE OPERATOR 3 Active insulin glargine (LANTUS) 100 unit/mL [...] for pain 30 Tablet 07/13/2024 12:19 PM RADIOTELEPHONE OPERATOR 4 Active methylPREDNISol one (Medrol, Marvel,) 4 [...] 3 Active fluticasone propionate (FLONASE) 50 mcg/spray Thrall, Suspension nasal inhaler Administer 2 Sprays in each nostril 1 time daily as needed. 3 Active folic acid (FOLVITE) 1 mg tablet 4 Active gabapentin (NEURONTIN) 300 mg capsule 4 Active glucagon (BAQSIMI) 3 mg/spray Thrall, Non-Aerosol Administer 1 Thrall in each nostril. 4 Active insulin glargine-yfgn [...] daily. 120 Tablet 3 09/11/2024 3:51 PM RADIOTELEPHONE OPERATOR 4 Active venlafaxine (EFFEXOR XR) 150 mg Extended Release 24 hour capsule Take 1 capsule (150 mg total) by mouth daily 30 Capsule 07/13/2024 12:19 PM RADIOTELEPHONE OPERATOR 4 Active tirzepatide (Mounjaro) 10 mg/0.5 mL Pen Injector Inject 10 mg under the skin every 7 days 2 mL 3 09/29/2024 4:41 PM RADIOTELEPHONE OPERATOR 4 Active Active Problems Patient Care Coordination No te Formatting of this note migh t be different from the original. Baggage Clerk: Dr. Peraza Problem Noted Date Diagnosed Date Dyspnea 03/19/2012 Overview (03/22/2012): 02/11 EKG: NSR at 92 02/11 echo (TDS): EF 55%, trace MR, PA 24 Edema 03/19/2012 Hyperlipidemia 03/19/2012 Overview (03/19/2012): 02/11 cholesterol 235 HDL 51 LDL 153 triglyceride 155 Diabetes mellitus 03/19/2012 Overview (03/19/2012): 02/11 hemoglobin A1c 8.2 HTN (hypertension) Encounters Date Type Department Care Team Description 09/27/2024 External Device Data STL ABSTRACTION Provider, Abstract 08/24/2024 External Device Data ST[facility] ABSTRACTION Provider, Abstract 08/23/2024 External Device Data ST[facility] ABSTRACTION Provider, Abstract 08/16/2024 External Device Data STL ABSTRACTION Provider, Abstract 08/09/2024 External Device Data STL ABSTRACTION Provider, Abstract from Last 3 Months Family History Medical [...] on file Legal Sex Female 6:10 AM RADIOTELEPHONE OPERATOR Gender Identity Not on file Sexual Orientation Not on file 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 on file Not on file Not on file Last Filed Vital Signs Vital Sign Reading Time Taken Comments Blood Pressure 128/90 06/21/2024 10:51 AM RADIOTELEPHONE OPERATOR Pulse 82 03/22/2012 2:23 PM CDT Temperature - - Respiratory Rate 18 03/22/2012 2:23 PM CDT Oxygen Saturation 97% 03/22/2012 1:51 PM CDT Inhaled Oxygen Concentration - - Weight 141.2 kg (311 lb 3.2 oz) 024 10:51 AM RADIOTELEPHONE OPERATOR Height 167.6 cm (5' 6 ) 05/17/2024 [...] PAP (05/17/2024 4:26 PM CDT) COMMENT (PAP): [facility] Comment: This order for age-based cervical cancer and STI screening follows ACOG guidelines(PB 168, 140, VSW625). See individual assays for performing site location. CLINICAL INFORMATION [facility] Comment:None given LAST MENSTRUAL PERIOD [facility] Comment:10/02/2023 PREV PAP: [facility] Comment:NONE GIVEN PREV BX: [facility] Comment:NONE GIVEN SOURCE [facility] Comment:Endocervix ADEQUACY: [facility] Comment: Satisfactory for evaluation. Endocervical/transformation zone component absent. PAP INTERP [facility] Comment: Cytology Results: Negative for intraepithelial lesion or malignancy. COMMENT (PAP TEST) [facility] Comment: This Pap test has been evaluated with computer assisted technology. SCHOOL HEALTH ASSISTANT: Ni Ramirez Comment: MEF, CT(ASCP) CT screening location: [place] [address] [place] [address] EXPLANATORY NOTE Que [facility] Ramirez Comment: EXPLANATORY NOTE: The Pap is [...] information. HPV E6/E7 Not Detected Not Detected [facility] Comment: Methodology: Management Sme-Mediated Amplification This assay detects E6/E7 viral messenger RNA (mRNA) from 14 high-risk HPV types (16,18,31,33,35,39,45,51,52,56,58,59,66,68). Cervical sources are required for HPV testing. If a vaginal source from a patient who has had a total hysterectomy with removal of cervix was submitted, please contact the testing laboratory for alternative testing options. For additional information, please refer to http://education.[employer]/faq/DHG755i6 (This link if provided for information/ educational purposes only.) Test Performed at: [facility] [address] [place] [address] Torin GUZMAN Genital SWAB OF ENDOCERVIX / Unknown 05/17/2024 4:26 PM CDT 05/18/2024 3:48 AM CDT us Kendrick Teague MD PATHOLOGY/CYTOLOGY ORDERABLE S Final Result [facility] [phone] [facility] [address] [place] [address] from Last 3 Months or Most Recently Relevant to Health Maintenance Insurance [employer] Business Plan [facility] [employer] [id number] [employer] Member Subscriber Plan / Payer (Ef fective 2023-Present) Name:Walt Huitron Relation to Subscriber:Self Name:Walt Huitron Subscriber ID:Not on file Payer ID:Not on file Group ID:[id number] Type:RX Commercial Address: [address] (INTERNAL) [facility] Care Teams Junior Bookkeeper Relationship Specialty Start Date End Date Masoud Hayes MD PCP - General Internal Medicine 03/08/12
--- OUTSIDE RECORDS SUMMARY | 2024-10-03 02:25 | XMS_ITS | Encounter Summary ---
Author Organization [facility] Address [address] [place] [address] Care Team Providers Care Business Account Specialist Name Role Phone Tiffany Cox MD Primary Care Provider Unavailable Kishor Saleh MD Primary Care Provider [phone] Encounter Details Date Type Department Care Team (Late st Contact Info) Description 07/03/2023 Lab Requisition [facility] - DermPath Lab [address] [place] [address] [place] [id number] [address] Social History Tobacco Use Types [...] IMMUNOFLUORESCENT STUDY DERM Routine 07/01/2023 3:33 AM BIZTALK DEVELOPER documented in this encounter Results * IMMUNOFLUORESCENT STUDY DERM (07/01/2023 3:33 AM BIZTALK DEVELOPER) Case Report Dermatopathol ogy Report Case: [id number] Authorizing Provider: Kendrick Christopher MD Collected: 07/01/2023 03:33 AM Ordering Location: [facility] DermPath Lab Received: 07/03/2023 12:13 PM Pathologist: Bella Schwab MD Specimen: Skin, right superior han 3:46 PM [facility] DERMATOPATHOLOGY LABORATORY Final Diagnosis Specimen A. SKIN, right superior han: COLLOID BODIES (L98.9) (see microscopic description) (see fixed tissue results) 3 3:46 PM [facility] DERMATOPATHOLOGY LABORATORY Direct Immunofluorescence Report - Specimen A Specimen A IgA IgM IgG C3 CollV Fibrinogen Epidermis Negative Negative Negative Negative Negative Negative Basement Membrane Negative Negative Negative Negative 2+ Negative Vessels Negative Negative Negative Negative 2+ Negative Interstitium Colloid Colloid Colloid Negative Negative Non specific 3 3:46 PM [facility] DERMATOPATHOLOGY LABORATORY Clinical History Rash; R/O Leukocytoclas tic Vasculitis, Livedo Reticularis 3:46 PM [facility] DERMATOPATHOLOGY LABORATORY Gross Description Specimen A: Received is one Jatinder's media filled container labeled with the patient's name and designated right superior han. The specimen consists of a punch biopsy measuring 5x4x4 mm. The specimen is submitted in whole for direct immunofluores cence testing. 3:46 PM [facility] DERMATOPATHOLOGY LABORATORY Microscopic Description Specimen A. SKIN, [...] See fixed tissue results. 3 3:46 PM [facility] DERMATOPATHOLOGY LABORATORY Disclaimer An external and internal positive and negative controls are appropriate for the histochemical , immunohistoch emical and immunofluores cence stain(s) in this case (if any), except where stated explicitly. The performance characteristi cs of the stain(s) cited in this report were developed and its performance characteristi c determined by the Dermatopathol ogy Laboratory at [facility], directed by Dr. Arnol Perea. These tests need not be, and therefore are not, approved by the [place] Food and Drug Administratio n. The tests are used for clinical purposes. Billing Codes Specimen Charges Stain Charges 33656 78675 09117 24611 35894 68500 1 1 1 1 1 1 3 3:46 PM BIZTALK DEVELOPER DERMATOPATHOLOGY LABORATORY Embedded Images 3 3:46 PM BIZTALK DEVELOPER DERMATOPATHOLOGY LABORATORY Pathology/Cytolo gy TISSUE SPECIMEN FROM SKIN / Unknown 07/01/2023 3:33 AM BIZTALK DEVELOPER 07/03/2023 12:13 PM BIZTALK DEVELOPER Kendrick Christopher MD LAB - PATHOLOGY/CY TOLOGY ORDERABLES DERMATOPATHOLOGY LABORATORY [facility] - Department of Dermatology [facility] [address] [place] [address], [address] [phone] documented in this encounter Visit Diagnoses Not on filedocumented in this encounter Additional Health Concerns Infection Onset Date Last Indicated Resolved Time COVID-19 Under Investigation 08/13/2024 08/13/2024 08/13/2024 11:30 PM BIZTALK DEVELOPER documented as of this encounter Care Teams Business Account Specialist Relationship Specialty Start Date End Date Tiffany Cox MD PCP - General Internal Medicine 05/16/13 07/30/23 Kishor Saleh MD [address] [place] [address] [place] [id number] PCP - General Internal Medicine 07/31/23 documented as of this encounter
--- OUTSIDE RECORDS SUMMARY | 2024-10-03 02:25 | XMS_ITS | Continuity of Care Document ---
Author Organization [facility] Address [address] [place] [address] Phone Care Team Providers Care Surg Nurse Name Role Phone Tiffany Cox MD Unavailable [...] puff - Active Flonase 50 mcg/actuation Nasal [place] spray 1 spray by intranasal route every [...] Diagnoses Date Provider Providers Copied on Encounter [facility], [address], [place], [place], [id number] , tel: [phone] [facility] No Information 5 Damien Allen. [address] [place] [address], [id number]. tel:[phone] [facility], [address], [place], [place], [address] , [place] tel: [phone] [facility] No Information 5-201 5 Damien Allen. [address] [place] [address], [id number]. tel:[phone] [facility], [address], [place], [place], [address] , [place] tel: [phone] [facility] No Information 4 Whitley Zulma Allen. [address] [place] [address], [facility], [place], [place], [id number]. tel:[phone] [facility], [address], [place], [place], [address] , [place] tel: [phone] [facility] No Information 3 Whitley Threats Tiffany. [address] [place] [address], [facility], [place], [place], [id number]. tel:[phone] [facility], [address], [place], [place], [address] , [place] tel: [phone] [facility] Strain of right knee and leg 3 Shahmarcell Castellanos. [address] [place] [address], [facility], [place], [place], [id number], [place]. tel:[phone] Referring Provider: Tiffany Maya, [address] [place] [address], [place], [address] . tel:[phone] [facility], [address], [place], [place], [address] , [place] tel: [phone] [facility] No Information 3 Whitleymissy Allen. [address] [place] [address], [facility], [place], [place], [address]. tel:[phone] [facility], [address], [place], [place], [address] , [place] tel: [phone] [facility] Type II diabetes mellitusDyslipidemi aContact with or exposure to tuberculosis 3 Whitley Zulma Carrizalesan. [address] [place] [address] 107, [place], [place], [address]. tel:[phone] Referring Provider: Tiffany Maya, [address] [place] [address] 107, [place], [address] . tel:[phone] [facility], [address], [place], [place], [address] , [place] tel: [phone] [facility] Diabetes mellitus without mention of complication, type II or unspecified type, uncontrolledAllergi c rhinitis, cause unspecifiedExtrinsi c asthmaMorbid obesityDiabetes mellitus without mention of complication, type II or unspecified type, not stated as uncontrolled 0 3 Dmaien Allen. [address] [place] [address], [place] [address], [place], [place], [address]. tel:[phone] Referring Provider: Tiffany Maya, [address] [place] [address] 107, [place], [address] . tel:[phone] [facility], [address], [place], [place], [address] , tel: [phone] [facility] No Information 3 Damien Allen. [address] [place] [address], [id number]. tel:[phone] [facility], [address], [place], [place], [address] , [place] tel: [phone] [facility] No Information 3 Sarah Cutler. [address] [place] [address], [place], [place], [address], [place]. tel:[phone] [facility], [address], [place], [place], [address] , tel: [phone] [facility] Bronchitis, not specified as acute or chronicBronchitis, not specified as acute or chronic 3 Damien Allen. [address] [place] [address], [address], [id number]. tel:[phone] Referring Provider: Tiffany Maya, [address] [place] [address] 107, [place], [address] . tel:[phone] [facility], [address], [place], [place], [id number] , tel: [phone] [facility] No Information 0 3 Sarah Cutler. [address], [address], [place], [place], [address], [place]. [phone] [facility], [address], [place], [place], [address] , tel: [phone] [facility] Diabetes mellitus without mention of complication, type II or unspecified type, uncontrolledEdemaIn fertility, female, associated with anovulationAllergic rhinitis, cause unspecifiedRoutine medical examMorbid obesityIrregular menses 3 Damien Maya Tiffany. [address], [address], [place], [place], [address]. [phone] Referring Provider: Tiffany Maya, [facility], [place], [address] . tel:[phone] Family History Family Member Type Diagnosis Age At Onset Problem (finding) Family history of depre ssion Problem (finding) Family history of Diabe sheila mellitus Problem (finding) Family history of Menta l illness Problem (finding) Family history of coronary arteriosclerosis Problem (finding) Family history of alzhe rj's disease Problem (finding) Family history of migra ine Payers Payer name Insurance type Covered libertarian ID Authoriza tiradha(s) [employer] OPEN ACCESS I II III CI [id number] Social History Type Description Quantity Date Captured [...]
--- OUTSIDE RECORDS SUMMARY | 2024-10-03 02:25 | XMS_ITS | Encounter Summary ---
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 Name Role Phone Tiffany Cox MD Primary Care Provider Unavailable Kishor Saleh MD Primary Care Provider Encounter Details Date Type Department Care Team (Late st Contact Info) Description 07/03/2023 Lab Requisition [facility] - [facility] Lab [address] [place] [id number] [place] [address] [facility] [address] [place] [address] [place] [address] Social History Tobacco Use Types Packs/Day [...] Under Investigation 08/13/2024 08/13/2024 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
--- OUTSIDE RECORDS SUMMARY | 2024-10-03 02:25 | XMS_ITS | Clinical Summary ---
Author Organization [facility] Address [address] [place] [address] Care Team Providers Care Char Filter Tank Tender Name Role Phone Kishor Saleh MD Primary Care Provider Source Comments [facility],non-owned Affiliates and Associated Physician Practices is amultiple site organization consisting of ambulatory clinics and hospital sitesin [place], [place], [place] and [place]. This disclosure is being madepursuant to the Care Everywhere program and may not contain all information available regarding this patient. Last updated 18.[facility] Allergies Active Allergy Reactions Criticality Noted Date [...] fluticasone propionate (Flonase) 50 MCG/ACT nasal spray [place] 2 (two) sprays into each nostril once [...] Active vitamin D, ergocalciferol, (Drisdol) 1.25 MG (68907 UT) capsule Take 1 (one) capsule by [...] Department Care Team Description 08/13/2024 3:43 PM SURG TECH - 08/18/2024 5:19 PM SURG TECH Hospital Encounter DP 6N Telemetry [address] [place] [address] Alexus Ramirez MD Ramgopal, Britney Martin, MD [...] any time in the past 12 m [facility], were you homeless or living in a long term (including now)? No 08/15/2024 Sex and Gender Information Value Date Recorded Sex Assigned at Not on file Gender Identity Not on file Sexual Orientation Not on file Last Filed Vital Signs Vital Sign Reading Time Taken Comments Blood Pressure 154/92 08/18/2024 12:25 PM SURG TECH Pulse 102 08/18/2024 12:25 PM SURG TECH Temperature 36.7 C (98.1 F) 08/18/2024 12:25 PM SURG TECH Respiratory Rate 23 08/18/2024 12:2 5 PM SURG TECH Oxygen Saturation 90% 08/18/2024 12: 25 PM SURG TECH Inhaled Oxygen Concentration 21% 08/18/2024 2 :00 PM SURG TECH Weight 132.6 kg (292 lb 4.8 oz) 08/18/2024 4:00 AM SURG TECH Height 167.6 cm (5' 6 ) 08/13/2024 5:14 PM SURG TECH Body Mass Index 47.18 08/13/2024 5:14 PM SURG TECH Plan of Treatment Health Maintenance Due Date [...] CARDIAC RHYTHM STRIP ORDER 08/23/2024 2:41 AM SURG TECH HOME O2 EVAL (DESATURATION SCREEN) Routine 08/18/2024 10:39 AM SURG TECH GLUCOSE - POINT OF CARE Routine 08/18/2024 7:46 AM SURG TECH GLUCOSE - POINT OF CARE Routine 08/17/2024 9:47 PM SURG TECH GLUCOSE - POINT OF CARE Routine 08/17/2024 5:03 PM SURG TECH GLUCOSE - POINT OF CARE Routine 08/17/2024 12:36 PM SURG TECH GLUCOSE - POINT OF CARE Routine 08/17/2024 7:48 AM SURG TECH CBC W/O DIFFERENTIAL AM Draw 08/17/2024 4:16 AM SURG TECH BASIC METABOLIC PANEL (CALCIUM TOTAL) AM Draw 08/17/2024 4:16 AM SURG TECH GLUCOSE - POINT OF CARE Routine 08/17/2024 12:18 AM SURG TECH VANCOMYCIN LEVEL TROUGH Timed 08/16/2024 6:35 PM SURG TECH GLUCOSE - POINT OF CARE Routine 08/16/2024 6:43 AM SURG TECH CBC W/O DIFFERENTIAL AM Draw 08/16/2024 4:59 AM SURG TECH BASIC METABOLIC PANEL (CALCIUM TOTAL) AM Draw 08/16/2024 4:59 AM SURG TECH GLUCOSE - POINT OF CARE Routine 08/15/2024 10:15 PM SURG TECH GLUCOSE - POINT OF CARE Routine 08/15/2024 4:36 PM SURG TECH GLUCOSE - POINT OF CARE Routine 08/15/2024 2:22 PM SURG TECH GLUCOSE - POINT OF CARE Routine 08/15/2024 12:24 PM SURG TECH CULTURE BLOOD Timed 08/15/2024 8:54 AM SURG TECH CULTURE BLOOD Timed 08/15/2024 8:45 AM SURG TECH GLUCOSE - POINT OF CARE Routine 08/15/2024 5:48 AM SURG TECH CBC W/O DIFFERENTIAL AM Draw 08/15/2024 3:33 AM SURG TECH BASIC METABOLIC PANEL (CALCIUM TOTAL) AM Draw 08/15/2024 3:33 AM SURG TECH GLUCOSE - POINT OF CARE Routine 08/14/2024 11:41 PM SURG TECH GLUCOSE - POINT OF CARE Routine 08/14/2024 6:04 PM SURG TECH GLUCOSE - POINT OF CARE Routine 08/14/2024 12:04 PM SURG TECH GLUCOSE - POINT OF CARE Routine 08/14/2024 10:07 AM SURG TECH GLUCOSE - POINT OF CARE Routine 08/14/2024 9:14 AM SURG TECH GLUCOSE - POINT OF CARE Routine 08/14/2024 8:22 AM SURG TECH GLUCOSE - POINT OF CARE Routine 08/14/2024 7:16 AM SURG TECH GLUCOSE - POINT OF CARE Routine 08/14/2024 6:28 AM SURG TECH GLUCOSE - POINT OF CARE Routine 08/14/2024 5:31 AM SURG TECH GLUCOSE - POINT OF CARE Routine 08/14/2024 4:30 AM SURG TECH GLUCOSE - POINT OF CARE Routine 08/14/2024 3:27 AM SURG TECH HEMOGLOBIN A1C Routine 08/14/2024 3:27 AM SURG TECH CBC W/O DIFFERENTIAL AM Draw 08/14/2024 3:27 AM SURG TECH BASIC METABOLIC PANEL (CALCIUM TOTAL) AM Draw 08/14/2024 3:27 AM SURG TECH GLUCOSE - POINT OF CARE Routine 08/14/2024 2:33 AM SURG TECH GLUCOSE - POINT OF CARE Routine 08/14/2024 1:29 AM SURG TECH GLUCOSE - POINT OF CARE Routine 08/14/2024 12:23 AM SURG TECH GLUCOSE - POINT OF CARE Routine 08/13/2024 8:07 PM SURG TECH STREP PNEUMONIAE ANTIGEN URINE Routine 08/13/2024 5:17 PM SURG TECH LEGIONELLA ANTIGEN URINE Routine 08/13/2024 5:17 PM SURG TECH RESPIRATORY PANEL WITH SARS-COV-2 BY PCR (STL) Routine 08/13/2024 5:09 PM SURG TECH CULTURE BLOOD Timed 08/13/2024 5:09 PM SURG TECH CULTURE MRSA Routine 08/13/2024 5:09 PM SURG TECH DIFFERENTIAL MANUAL STAT 08/13/2024 5 :08 PM SURG TECH PTT STAT 08/13/2024 5:08 PM SURG TECH PT-INR STAT 08/13/2024 5:08 PM SURG TECH PHOSPHORUS BLOOD STAT 08/13/2024 5:08 PM SURG TECH MAGNESIUM BLOOD STAT 08/13/2024 5:08 PM SURG TECH LIPASE BLOOD STAT 08/13/2024 5:08 PM SURG TECH LACTIC ACID BLOOD STAT 08/13/2024 5:0 8 PM SURG TECH COMPREHENSIVE METABOLIC PANEL STAT 08/13/2024 5:08 PM SURG TECH CBC W AUTO DIFFERENTIAL STAT 08/13/2024 5:08 PM SURG TECH B-TYPE NATRIURETIC PEPTIDE STAT 08/13/2024 5:08 PM SURG TECH BCID PANEL Routine 08/13/2024 5:08 PM SURG TECH CULTURE BLOOD Timed 08/13/2024 5:08 PM SURG TECH GLUCOSE - POINT OF CARE Routine 08/13/2024 4:48 PM SURG TECH BLOOD GASES ARTERIAL STAT 08/13/2024 4:16 PM SURG TECH XR CHEST 1VW PORTABLE STAT 08/13/2024 4:04 PM SURG TECH Acute hypoxic respiratory failure (HCC) from Last 3 Months Results * CARDIAC RHYTHM STRIP ORDER (08/23/2024 2:41 AM SURG TECH) Narrative 08/23/2024 2:41 AM SURG TECH Ordered by an unspecified provider. Scanned Document CARDIAC SERVICES ORD ERABLES * GLUCOSE - POINT OF CARE (08/18/2024 7:46 AM SURG TECH) Only the most recent of28 resultswithin the time period is included. Glucose WB/POC 81 70 - 99 mg/dL 08/18/2024 7:51 AM SURG TECH [facility] Specimen Type Cap Fingerstick 2024 7:51 AM SURG TECH [facility] Blood BLOOD SPECIMEN / Unknown 08/18/2024 7:46 AM SURG TECH 08/18/2024 7:51 AM SURG TECH Young Mcwilliams MD LAB - POINT OF CARE ORDERABLES [facility] [address] [place] [address] * (ABNORMAL) CBC W/O DIFFERENTIAL (08/17/2024 4:16 AM SURG TECH) Only the most recent of4 resultswithin the time period is included. WBC 16.3(H) 4.0 - 10.7 x10E9/L 08/17/2024 4:44 AM SURG TECH [facility] RBC Count 3.51(L) 3.90 - 5.20 x10E12/L 08/17/2024 4:44 AM [facility] Hemoglobin 10.3(L) 11.9 - 15.8 g/dL 08/17/2024 4:44 AM [facility] Hematocrit 32.6(L) 34.8 - 46.1 % 08/17/2024 4:44 AM [facility] MCV 92.9 80.0 - 98.0 fL 08/17/2024 4:44 AM [facility] MCH 29.3 26.7 - 33.6 pg 08/17/2024 4:44 AM [facility] MCHC 31.6(L) 31.7 - 36.3 g/dL 08/17/2024 4:44 AM [facility] RDW-CV 15.8(H) 11.3 - 14.8 % 08/17/2024 4:44 AM [facility] Platelet Count 478(H) 150 - 420 x10E9/L 08/17/2024 4:44 AM [facility] MPV 10.4 7.8 - 11.4 fL 08/17/2024 4:44 AM [facility] NRBC 0.8(H) <=0.0 /100 WBC 08/17/2024 4:44 AM [facility] Blood BLOOD SPECIMEN / Unknown Venipuncture / Unknown 08/17/2024 4:16 AM SURG TECH 08/17/2024 4:30 AM [facility] Alexus Ramirez MD LAB - HEMATOLOGY ORD ERABLES [facility] [address] [place] [address] * (ABNORMAL) BASIC METABOLIC PANEL (CALCIUM TOTAL) (08/17/2024 4:16 AM SURG TECH) Only the most recent of4 resultswithin the time period is included. Glucose 139(H) 70 - 99 mg/dL 08/17/2024 4:53 AM [facility] Sodium 140 136 - 145 mmol/L 08/17/2024 4:53 AM [facility] Potassium 3.5 3.5 - 5.1 mmol/L 08/17/2024 4:53 AM [facility] Chloride 108(H) 98 - 107 mmol/L 08/17/2024 4:53 AM [facility] CO2 24 22 - 29 mmol/L 08/17/2024 4:53 AM [facility] Calcium 8.9 8.4 - 10.4 mg/dL 08/17/2024 4:53 AM [facility] Anion Gap 8 6 - 16 mmol/L 08/17/2024 4:53 AM [facility] BUN 15 5.3 - 18.7 mg/dL 08/17/2024 4:53 AM [facility] Creatinine 0.65 0.57 - 1.11 mg/dL 08/17/2024 4:53 AM [facility] eGFR by CKD-EPI >90 >=90 mL/min/1.7 3 m2 08/17/2024 4:53 AM [facility] Blood BLOOD SPECIMEN / Unknown Venipuncture / Unknown 08/17/2024 4:16 AM SURG TECH 08/17/2024 4:30 AM SURG TECH Alexus Ramirez MD LAB - CHEMISTRY MICHAEL MONTGOMERY Performing Organization Address City/[facility] Co de Phone Number [facility] [address] [place] [address] * (ABNORMAL) VANCOMYCIN LEVEL TROUGH (08/16/2024 6:35 PM SURG TECH) [facility] Vancomycin Trough 6.1(L) 10.0 - 20.0 ug/mL 08/16/2024 7:22 PM SURG TECH [facility] Blood BLOOD SPECIMEN / Unknown Venipuncture / Unknown 08/16/2024 6:35 PM SURG TECH 08/16/2024 7:02 PM SURG TECH Anatoliy Wyman MD LAB - CHEMISTRY ORDMarkos MONTGOMERY Performing Organization Address [facility] Co de Phone Number [facility] [address] [place], [place] [id number] * CULTURE BLOOD (08/15/2024 8:54 AM SURG TECH) Only the most recent of4 resultswithin the time period is included. [facility] Signature Culture No growth day 5 LORENZO 08/20/2024 1:31 PM SURG TECH [facility] Blood PERIPHERAL BLOOD / Unknown Venipuncture / Unknown 08/15/2024 8:54 AM SURG TECH 08/15/2024 9:13 AM SURG TECH Amadeo Milner MD LAB - MICROBIOLOGY O RDERABLES [facility] [address] [place] [address], [facility] [phone] * (ABNORMAL) HEMOGLOBIN A1C (08/14/2024 3:27 AM SURG TECH) Hemoglobin A1c 10.1(H) <5.7 % 08/14/2024 3:48 AM SURG TECH [facility] Estimated Average Glucose 243 mg/dL 08/14/2024 3:48 AM SURG TECH [facility] Blood BLOOD SPECIMEN / Unknown Venipuncture / Unknown 08/14/2024 3:27 AM SURG TECH 08/14/2024 3:37 AM SURG TECH Narrative [facility] - 08/14/2024 3:48 AM SURG TECH HbA1c Interpretation: Normal: < 5.7% Pre-diabetes: 5.7-6.4% [...] exceeds 5% in the specimen. The Montalvo Nebel.TVnity assay for the measurement of HbA1c is a National Glycohemoglobin Standardization Program (NGSP) certified method. Alexus Ramirez MD LAB - CHEMISTRY MIGUELMarkos MONTGOMERY Performing Organization Address City/[facility]/ZIP Co de Phone Number [facility] [address] [place] [address] * STREP PNEUMONIAE ANTIGEN URINE (08/13/2024 5:17 PM SURG TECH) Streptococcus pneumoniae Antigen Urine Negative Negative 08/14/2024 8:17 AM SURG TECH [facility] Urine URINE / Unknown Collection / Unknown 08/13/2024 5:17 PM SURG TECH 08/13/2024 5:22 PM SURG TECH Narrative [facility] - 08/14/2024 8:17 AM SURG TECH Patients who have received the Streptococcus pneumoniae [...] - MICROBIOLOGY Blayne BABCOCK Performing Organization Address [facility] Co de Phone Number [facility] [address] [place] [id number] [phone] * LEGIONELLA ANTIGEN URINE (08/13/2024 5:17 PM SURG TECH) Legionella Antigen Urine Negative Negative 08/14/2024 8:21 AM SURG TECH [facility] Urine URINE / Unknown Collection / Unknown 08/13/2024 5:17 PM SURG TECH 08/13/2024 5:22 PM SURG TECH Narrative [facility] - 08/14/2024 8:21 AM SURG TECH This assay detects Legionella pneumophila serogroup one (1) antigen. A negative test result does not rule out the possibility of Legionella infection due to other serogroups or species of Legionella. A positive result may indicate a recent or remote infection with serogroup 1. Alexus Ramirez MD LAB - MICROBIOLOGY O YOKO Performing Organization Address City/[facility]/ZIP Co de Phone Number [facility] [address] [place] [address], [facility] [phone] * (ABNORMAL) RESPIRATORY PANEL WITH SARS-COV-2 BY PCR (STL) (08/13/2024 5:09 PM SURG TECH) Adenovirus PCR Not detected Not detected 08/13/2024 11:30 PM SURG TECH [facility] Coronavirus 229E PCR Not detected Not detected 08/13/2024 11:30 PM SURG TECH [facility] Coronavirus HKU1 PCR Not detected Not detected 08/13/2024 11:30 PM SURG TECH [facility] Coronavirus NL63 PCR Not detected Not detected 08/13/2024 11:30 PM SURG TECH [facility] Coronavirus OC43 PCR Not detected Not detected 08/13/2024 11:30 PM SURG TECH [facility] COVID-19 PCR Not detected Not detected 08/13/2024 11:30 PM SURG TECH [facility] Human Metapneumovirus PCR Not detected Not detected 08/13/2024 11:30 PM SURG TECH [facility] Human Rhinovirus/Enterov irus PCR Not detected Not detected 08/13/2024 11:30 PM SURG TECH [facility] Influenza A PCR Not detected Not detected 08/13/2024 11:30 PM SURG TECH [facility] Influenza B PCR Not detected Not detected 08/13/2024 11:30 PM SURG TECH [facility] Parainfluenza Virus 1 PCR Not detected Not detected 08/13/2024 11:30 PM SURG TECH [facility] Parainfluenza Virus 2 PCR Not detected Not detected 08/13/2024 11:30 PM SURG TECH [facility] Parainfluenza Virus 3 PCR Not detected Not detected 08/13/2024 11:30 PM SURG TECH [facility] Parainfluenza Virus 4 PCR Not detected Not detected 08/13/2024 11:30 PM SURG TECH [facility] Respiratory Syncytial Virus PCR Detected(A) Not detected 08/13/2024 11:30 PM SURG TECH [facility] Bordetella parapertussis PCR Not detected Not detected 08/13/2024 11:30 PM SURG TECH [facility] Bordetella pertussis PCR Not detected Not detected 08/13/2024 11:30 PM SURG TECH [facility] Chlamydia pneumoniae PCR Not detected Not detected 08/13/2024 11:30 PM SURG TECH [facility] Mycoplasma pneumoniae PCR Not detected Not detected 08/13/2024 11:30 PM SURG TECH [facility] Microbiology SPECIMEN FROM NASOPHARYNGEAL STRUCTURE / Unknown Collection / Unknown 08/13/2024 5:09 PM SURG TECH 08/13/2024 5:20 PM SURG TECH Narrative [facility] - 08/13/2024 11:30 PM SURG TECH Contact and Droplet Precautions Required. This nucleic amplification assay has received FDA authorization via the [place] Pathway. Alexus Ramirez MD LAB - MICROBIOLOGY O YOKO [facility] [address] [place] [address], [facility] [phone] * CULTURE MRSA (08/13/2024 5:09 PM SURG TECH) Culture Negative for methicillin-resist ant Staphylococcus aureus (MRSA) LORENZO 08/15/2024 8:16 AM SURG TECH [facility] Microbiology SPECIMEN FROM NASAL FOSSAE / Unknown Collection / Unknown 08/13/2024 5:09 PM SURG TECH 08/13/2024 5:21 PM SURG TECH Alexus Ramirez MD LAB - MICROBIOLOGY O YOKO [facility] [address] [place] [address], [facility] [phone] * (ABNORMAL) BCID PANEL (08/13/2024 5:08 PM SURG TECH) Staphylococcus epidermidis Detected (A) Not detected 08/15/2024 2:03 AM SURG TECH [facility] MECA/C (Methicillin-Resi stance Gene) Detected (A) Not detected 08/15/2024 2:03 AM [facility] Comment:Results indicate met hicillin-resistant Staphylococcus epidermidis. Methicillin-resistance detected. Blood PERIPHERAL BLOOD / Unknown Venipuncture / Unknown 08/13/2024 5:08 PM SURG TECH 08/13/2024 5:19 PM SURG TECH Narrative [facility] - 08/15/2024 2:03 AM SURG TECH Blood Culture ID Panel performed by Bloominous multiplex PCR. The Test panel includes: Gram [...] and MREJ (methicillin-resistance - MRSA), NDM ([place] dqxleqy-itfj-txkwollcd), OXA-48-like (oxacillinase beta-lactamase),Ashly/B (vancomycin-resistance), VIM (Noa Intergrom-Encoded Metallo beta-lactamase). Alexus Ramirez MD LAB - MICROBIOLOGY O RDERABLES [facility] [address] [facility] [address] [phone] * PTT (08/13/2024 5:08 PM SURG TECH) PTT 28.4 23.0 - 38.4 sec 08/13/2024 5:43 PM SURG TECH [facility] Blood BLOOD SPECIMEN / Unknown Venipuncture / Unknown 08/13/2024 5:08 PM SURG TECH 08/13/2024 5:21 PM SURG TECH Narrative [facility] - 08/13/2024 5:43 PM SURG TECH Heparin Therapeutic Range for PTT: 69.0 - 110.0 seconds. Alexus Ramirez MD LAB - COAGULATION OR DERABLES Performing Organization Address [facility] Co de Phone Number [facility] [phone] [place] [address] * PT-INR (08/13/2024 5:08 PM SURG TECH) PT 14.1 12.1 - 14.8 sec 08/13/2024 5:43 PM SURG TECH [facility] INR 1.1 0.9 - 1.1 08/13/2024 5:43 PM SURG TECH [facility] Blood BLOOD SPECIMEN / Unknown Venipuncture / Unknown 08/13/2024 5:08 PM SURG TECH 08/13/2024 5:21 PM SURG TECH Narrative [facility] - 08/13/2024 5:43 PM SURG TECH Conventional Warfarin Anticoagulant Therapy: INR Reference Range: 2.0-3.0 Intensive Warfarin Anticoagulant Therapy: INR Reference Range: 2.5-3.5 Alexus Ramirez MD LAB - COAGULATION OR DERABLES Performing Organization Address [facility] de Phone Number [facility] [address] [place] [address] * (ABNORMAL) DIFFERENTIAL MANUAL (08/13/2024 5:08 PM SURG TECH) Neutrophil % 90(H) 41 - 74 % 08/13/2024 6:34 PM SURG TECH [facility] Lymphocyte % 4(L) 17 - 47 % 08/13/2024 6:34 PM [facility] Monocyte % 1(L) 3 - 11 % 08/13/2024 6:34 PM [facility] Basophil % 1 0 - 2 % 08/13/2024 6:34 PM [facility] Myelocyte % 3(H) 0% % 08/13/2024 6:34 PM SURG TECH [facility] Promyelocyte % 1(H) 0% % 08/13/2024 6:34 PM [facility] Neutrophil Absolute 17.91(H) 1.60 - 7.50 x10E9/L 08/13/2024 6:34 PM [facility] Lymphocyte Absolute 0.80(L) 1.00 - 4.40 x10E9/L 08/13/2024 6:34 PM [facility] Monocyte Absolute 0.20 0.15 - 1.00 x10E9/L 08/13/2024 6:34 PM [facility] Basophil Absolute 0.20(H) 0.00 - 0.13 x10E9/L 08/13/2024 6:34 PM [facility] RBC Morphology REVIEWED 08/13/2024 6:34 PM [facility] Blood BLOOD SPECIMEN / Unknown Venipuncture / Unknown 08/13/2024 5:08 PM SURG TECH 08/13/2024 5:21 PM SURG TECH Alexus Ramirez MD LAB - HEMATOLOGY ORD ERABLES [facility] [address] [place] [address] * (ABNORMAL) CBC W AUTO DIFFERENTIAL (08/13/2024 5:08 PM SURG TECH) WBC 19.9(H) 4.0 - 10.7 x10E9/L 08/13/2024 6:34 PM [facility] RBC Count 3.41(L) 3.90 - 5.20 x10E12/L 08/13/2024 6:34 PM [facility] Hemoglobin 10.1(L) 11.9 - 15.8 g/dL 08/13/2024 6:34 PM [facility] Hematocrit 31.0(L) 34.8 - 46.1 % 08/13/2024 6:34 PM [facility] MCV 90.9 80.0 - 98.0 fL 08/13/2024 6:34 PM [facility] MCH 29.6 26.7 - 33.6 pg 08/13/2024 6:34 PM [facility] MCHC 32.6 31.7 - 36.3 g/dL 08/13/2024 6:34 PM [facility] RDW-CV 15.2(H) 11.3 - 14.8 % 08/13/2024 6:34 PM [facility] Platelet Count 340 150 - 420 x10E9/L 08/13/2024 6:34 PM SURG TECH [facility] MPV 11.4 7.8 - 11.4 fL 08/13/2024 6:34 PM SURG TECH [facility] Blood BLOOD SPECIMEN / Unknown Venipuncture / Unknown 08/13/2024 5:08 PM SURG TECH 08/13/2024 5:21 PM SURG TECH Alexus Ramirez MD LAB - HEMATOLOGY ORD ERABLES Performing Organization Address [facility] Co de Phone Number [facility] [address] [place] [address] * B-TYPE NATRIURETIC PEPTIDE (08/13/2024 5:08 PM SURG TECH) Pathologist [facility] BNP 43 <=100 pg/mL 08/13/2024 5:45 PM [facility] Blood BLOOD SPECIMEN / Unknown Venipuncture / Unknown 08/13/2024 5:08 PM SURG TECH 08/13/2024 5:21 PM SURG TECH Alexus Ramirez MD LAB - CHEMISTRY ORDE RABLES Performing Organization Address [facility] de Phone Number [facility] [address] [place] [address] * (ABNORMAL) COMPREHENSIVE METABOLIC PANEL (08/13/2024 5:08 PM SURG TECH) Glucose 396(H) 70 - 99 mg/dL 08/13/2024 5:39 PM [facility] Sodium 135(L) 136 - 145 mmol/L 08/13/2024 5:39 PM [facility] Potassium 5.0 3.5 - 5.1 mmol/L 08/13/2024 5:39 PM [facility] Chloride 99 98 - 107 mmol/L 08/13/2024 5:39 PM [facility] CO2 26 22 - 29 mmol/L 08/13/2024 5:39 PM [facility] Calcium 9.2 8.4 - 10.4 mg/dL 08/13/2024 5:39 PM [facility] Anion Gap 10 6 - 16 mmol/L 08/13/2024 5:39 PM [facility] BUN 28(H) 5.3 - 18.7 mg/dL 08/13/2024 5:39 PM SURG TECH [facility] Creatinine 0.89 0.57 - 1.11 mg/dL 08/13/2024 5:39 PM [facility] Alkaline Phosphatase 111 40 - 150 U/L 08/13/2024 5:39 PM SURG TECH [facility] ALT 40 0 - 55 U/L 08/13/2024 5:39 PM SURG TECH [facility] AST 15 5 - 34 U/L 08/13/2024 5:39 PM [facility] Protein Total 6.8 6.4 - 8.3 gm/dL 08/13/2024 5:39 PM [facility] Albumin 2.6(L) 3.4 - 5.0 gm/dL 08/13/2024 5:39 PM [facility] Bilirubin Total 0.2 0.2 - 1.2 mg/dL 08/13/2024 5:39 PM [facility] eGFR by CKD-EPI 80(L) >=90 mL/min/1.7 3 m2 08/13/2024 5:39 PM SURG TECH [facility] Blood BLOOD SPECIMEN / Unknown Venipuncture / Unknown 08/13/2024 5:08 PM SURG TECH 08/13/2024 5:21 PM SURG TECH Alexus Ramirez MD LAB - CHEMISTRY ORDMarkos [place] Performing Organization Address City/[facility]/ZIP Co de Phone Number [facility] [id number] [place] [address] * PHOSPHORUS BLOOD (08/13/2024 5:08 PM SURG TECH) Phosphorus 3.3 2.5 - 4.5 mg/dL 08/13/2024 5:39 PM SURG TECH [facility] Blood BLOOD SPECIMEN / Unknown Venipuncture / Unknown 08/13/2024 5:08 PM SURG TECH 08/13/2024 5:21 PM SURG TECH Alexus Ramirez MD LAB - CHEMISTRY [facility] [place] Performing Organization Address City/[facility]/ZIP Co de Phone Number [facility] [id number] [place] [address] * MAGNESIUM BLOOD (08/13/2024 5:08 PM SURG TECH) Pathologist [facility] Magnesium 2.0 1.6 - 2.6 mg/dL 08/13/2024 5:39 PM SURG TECH [facility] Blood BLOOD SPECIMEN / Unknown Venipuncture / Unknown 08/13/2024 5:08 PM SURG TECH 08/13/2024 5:21 PM SURG TECH Alexus Ramirez MD LAB - CHEMISTRY [facility] Performing Organization Address City/[facility]/ZIP Co de Phone Number [facility] [address] [place] [address] [phone] * LIPASE BLOOD (08/13/2024 5:08 PM SURG TECH) Pathologist [facility] Lipase 25 <60 U/L 08/13/2024 5:39 PM SURG TECH [facility] Blood BLOOD SPECIMEN / Unknown Venipuncture / Unknown 08/13/2024 5:08 PM SURG TECH 08/13/2024 5:21 PM SURG TECH Alexus Ramirez MD LAB - CHEMISTRY [facility] Performing Organization Address [facility] Co de Phone Number [facility] [address] [place] [phone] * LACTIC ACID BLOOD (08/13/2024 5:08 PM SURG TECH) [facility] Lactic Acid 1.5 <=2.0 mmol/L 08/13/2024 5:39 PM SURG TECH [facility] Blood BLOOD SPECIMEN / Unknown Venipuncture / Unknown 08/13/2024 5:08 PM SURG TECH 08/13/2024 5:21 PM SURG TECH Alexus Ramirez MD LAB - CHEMISTRY [facility] Performing Organization Address [facility] Co de Phone Number [facility] [phone] [place] [address] [phone] * (ABNORMAL) BLOOD GASES ARTERIAL (08/13/2024 4:16 PM SURG TECH) Pathologist [facility] pH Arterial 7.47(H) 7.35 - 7.45 pH 08/13/2024 4:34 PM SURG TECH [facility] pO2 Arterial 99 80 - 100 mmHg 08/13/2024 4:34 PM SURG TECH [facility] pCO2 Arterial 39 35 - 45 mmHg 08/13/2024 4:34 PM SURG TECH [facility] HCO3 Arterial 28.4(H) 22.0 - 26.0 mmol/L 08/13/2024 4:34 PM SURG TECH [facility] BE Arterial 4.5(H) -2.0 - 2.0 mmol/L 08/13/2024 4:34 PM SURG TECH [facility] O2 Saturation Arterial 99 90 - 100 % 08/13/2024 4:34 PM SURG TECH [facility] Sample Site Right RA 08/13/2024 4:34 PM SURG TECH [facility] Mode APVcmv 08/13/2024 4:34 PM SURG TECH [facility] O2 Device VENT 08/13/2024 4:34 PM SURG TECH [facility] FI O2 50.0 % 08/13/2024 4:34 PM SURG TECH [facility] Mechanical Tidal Volume (mL) 380 08/13/2024 4:34 PM SURG TECH [facility] Mechanical Respiratory Rate (bpm) 22 08/13/2024 4:34 PM SURG TECH [facility] PEEP (cmH2O) 10 08/13/2024 4:34 PM SURG TECH [facility] Blood, arterial ARTERIAL BLOOD SPECIMEN / Unknown 08/13/2024 4:16 PM SURG TECH 08/13/2024 4:16 PM SURG TECH Alexus Ramirez MD LAB - BLOOD GASES OR DERABLES [facility] [id number] [phone] * XR CHEST 1VW PORTABLE (08/13/2024 4:04 PM SURG TECH) Anatomical Region Laterality Modality Chest Computed Radiogr aphy 08/13/2024 4:10 PM SURG TECH Impressions 08/13/2024 4:12 PM SURG TECH IMPRESSION: Multiple tubing placements as noted above. Subtle linear streak is present in the left lung. Also the diaphragm.? Atelectasis or scarring. Unfortunately, we have no previous chest imaging studies available at this time. > Interpreting Provider: Ko Olguin MD on 08/13/2024 4:12 PM Narrative 08/13/2024 4:12 PM SURG TECH PROCEDURE: XR CHEST 1VW PORTABLE DATE/TIME OF [...] to the level of the right atrium. hydropulper operator wires obscure the chest bilaterally. Heart [...] extendingto the level of the right atrium. hydropulper operator wires obscure the chest bilaterally. Heart [...] 3:54 PM 08/18/2024 6:24 PM Care Teams Char Filter Tank Tender Relationship Specialty Start Date End Date Kishor Saleh MD [address] [facility] [address] [id number] PCP - General Internal Medicine 07/31/23
--- OUTSIDE RECORDS SUMMARY | 2024-10-03 02:25 | XMS_ITS | Clinical Summary ---
Author Organization [facility] Medical Office Building A Address [address] [place] [address] Care Team Providers Care Steam Press Operator Name Role Phone Ann Serrano MD Unavailable [phone] Lynn Rodriguez MD Primary Care Provider Allergies [...] hours as needed for pain 30 tablet 024 Active ergocalciferol (Vitamin D2) 50,000 unit capsule [...] s:Uncontrolled type 2 diabetes mellitus with hyperglycemia (HCC),half-way (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) Use for [...] tablet 3 024 Active FOLIC ACID ORAL 024 Active gabapentin 024 Active albuterol HFA (ProAir HFA) 90 mcg/actuation inhaler Inhale 2 puffs every 4 (four) hours as needed for wheezing or shortness of breath 8.5 g 11 025 2025 Active albuterol 2.5 mg /3 mL (0.083 %) nebulizer solution USE 1 VIAL VIA NEBULIZER EVERY 6 HOURS NEEDED FOR WHEEZING (ADVANCED MANAGER RECOMMENDS NOT EXCEEDING 4 VIALS/DAY) 150 mL [...] 08/13/2024 Assessment & Plan (08/26/2024 6:09 PM CRYPTOGRAPHIC CENTER SPECIALIST): Recent hospitalization likely for CAP followed by RSV Symptoms resolved Impaired mobility 07/29/2024 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 07/13/2024 half-way 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 user 07/13/2024 Assessment & Plan (07/13/2024 12:22 PM CRYPTOGRAPHIC CENTER SPECIALIST): - Further complicates diabetes management Need for vaccination 04/06/2024 Assessment & Plan (04/06/2024 4:14 PM CDT): Received pneumonia vaccine today history of pneumonia currently no complaints last bout in 08/2023 Head trauma 09/04/2022 Assessment & Plan (09/04/2022 2:35 PM CRYPTOGRAPHIC CENTER SPECIALIST): No signs of neurological abnormality on examination [...] booster Assessment & Plan (06/24/2021 3:28 PM CRYPTOGRAPHIC CENTER SPECIALIST): Pito vaccine 10/05/2020 and Moderna booster Jun 2021 Major depressive disorder 04/22/2021 Assessment & Plan (01/06/2024 9:09 AM CDT): Stable on current medication regimen. Assessment & Plan (01/17/2022 10:21 AM CDT): Stable on current medication regimen. Assessment & Plan (07/17/2021 2:07 PM CRYPTOGRAPHIC CENTER SPECIALIST): Better controlled on venlafaxine. Assessment & Plan (04/22/2021 8:25 AM CDT): Restart venlafaxine and warned of side effects and call back if any develop or if no improvement. Type 2 diabetes mellitus with hyperlipidemia 06/2020 Assessment & Plan (01/06/2024 9:09 AM CDT): A1c above goal. Will start Mounjaro soon. Continue other medications as directed by her side stitching machine operator. Diet exercise discussed. Hopefully may be able to wean prednisone in the near future as well. Assessment & Plan (06/15/2023 10:48 AM CRYPTOGRAPHIC CENTER SPECIALIST): She knows that the steroids will exacerbate her hyperglycemia and should be in contact with her side stitching machine operator for management. Assessment & Plan (06/08/2023 5:26 PM CRYPTOGRAPHIC CENTER SPECIALIST): Poor control of her diabetes prior to this hospitalization and even worse now on prednisone. Follow-up with her side stitching machine operator for management. Diet exercise weight loss recommended. Assessment & Plan (01/21/2023 9:50 AM CDT): Blood sugars remain above goal. Hopefully the recent addition of mounjaro will help significantly. Discuss up titration of this and her mealtime insulin with her side stitching machine operator. Diet exercise discussed. Check A1c and fasting blood sugar before next visit. Assessment & Plan (08/02/2022 12:16 PM CRYPTOGRAPHIC CENTER SPECIALIST): A1c poorly controlled. Importance of diet exercise weight loss discussed at length. Continue her Ozempic and insulin and needs to contact her side stitching machine operator soon as possible for guidance on further therapy. Assessment & Plan (01/17/2022 10:22 AM CDT): Patient aware A1c grossly uncontrolled. Must work on diet exercise and weight loss. She has to get back on her insulin and should discuss this today with her side stitching machine operator. Risks posed her health with poor glycemic control discussed. Assessment & Plan (07/13/2020 8:34 AM CRYPTOGRAPHIC CENTER SPECIALIST): A1c above goal. Importance of diet exercise weight loss discussed. Continue current medication regimen and follow-up with her side stitching machine operator as they direct. 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 Unfortunately lab work and skin biopsy inconclusive. Discussed possible rheumatology 2nd opinion here at [facility] and patient will call back if desired. Assessment & Plan (06/15/2023 10:48 AM CRYPTOGRAPHIC CENTER SPECIALIST): Certainly making a case for underlying vasculitis [...] condition. Assessment & Plan (06/20/2020 9:35 AM CRYPTOGRAPHIC CENTER SPECIALIST): Unclear etiology but I am thinking of [...] 07/08/2019 Assessment & Plan (08/26/2024 6:10 PM CRYPTOGRAPHIC CENTER SPECIALIST): Body mass index is 49.1 kg/m . BMI Follow-up includes: nutrition counseling, exercise counseling, and education provided. Assessment & Plan (07/13/2024 12:20 PM CRYPTOGRAPHIC CENTER SPECIALIST): - Increase Mounjaro to 10 mg weekly [...] tolerated. Assessment & Plan (06/08/2023 5:23 PM CRYPTOGRAPHIC CENTER SPECIALIST): Patient is encouraged to lose weight with a combination of caloric reduction and increased exercise. Various strategies discussed. The long-term risks associated with continued morbid obesity discussed. Assessment & Plan (09/04/2022 2:34 PM CRYPTOGRAPHIC CENTER SPECIALIST): Patient is encouraged to lose weight with a combination of caloric reduction and increased exercise. Various strategies discussed. The long-term risks associated with continued morbid obesity discussed. Assessment & Plan (08/02/2022 12:16 PM CRYPTOGRAPHIC CENTER SPECIALIST): Patient is encouraged to lose weight with [...] discussed. Assessment & Plan (07/13/2020 8:34 AM CRYPTOGRAPHIC CENTER SPECIALIST): Patient is encouraged to lose weight with a combination of caloric reduction and increased exercise. Various strategies discussed. The long-term risks associated with continued morbid obesity discussed. Assessment & Plan (06/20/2020 9:35 AM CRYPTOGRAPHIC CENTER SPECIALIST): Patient is encouraged to lose weight with a combination of caloric reduction and increased exercise. Various strategies discussed. The long-term risks associated with continued morbid obesity discussed. Assessment & Plan (07/08/2019 8:44 AM CRYPTOGRAPHIC CENTER SPECIALIST): Patient is encouraged to lose weight with a combination of caloric reduction and increased exercise. Various strategies discussed. The long-term risks associated with continued morbid obesity discussed. Irregular menses 06/03/2019 Allergic rhinitis 07/05/2018 Assessment & Plan (02/23/2023 1:30 PM CDT): Nasal saline spray (Simply saline, [employer] Rem[place], [place], [place]) 2 second sprays or 2 squeezes into [...] daily Assessment & Plan (07/17/2021 2:07 PM CRYPTOGRAPHIC CENTER SPECIALIST): Claritin montelukast. Assessment & Plan (04/22/2021 8:25 AM CDT): Currently using Claritin and montelukast. She has not been trying Flonase as her nose is being to congested. Recommended sinus rinses her using a hot warm shower. Could also try Afrin for few days. Assessment & Plan (07/08/2019 8:43 AM CRYPTOGRAPHIC CENTER SPECIALIST): Add montelukast to her Claritin. She struggles with nasal sprays due to chronic congestion. Assessment & Plan (07/05/2018 9:24 AM CRYPTOGRAPHIC CENTER SPECIALIST): Try Afrin for 3 days along with initiating fluticasone. Stop Afrin in3 days and continue fluticasone indefinitely. continue Zyrtec. Mixed hyperlipidemia 07/02/2017 Assessment & Plan (07/13/2024 12:21 PM CRYPTOGRAPHIC CENTER SPECIALIST): - Last LDL 103, TG 308, TC [...] triglycerides. Assessment & Plan (09/12/2023 8:12 PM CRYPTOGRAPHIC CENTER SPECIALIST): Continue statin and optimize glycemic control Assessment & Plan (02/16/2023 8:14 PM CDT): Continue statin and optimize glycemic control Assessment & Plan (01/21/2023 9:50 AM CDT): Continue her atorvastatin and work on diet exercise and check lipids and LFTs before next visit. Assessment & Plan (08/02/2022 12:15 PM CRYPTOGRAPHIC CENTER SPECIALIST): Well controlled on current therapy and will check a lipid panel and LFTs in 6 months. Assessment & Plan (01/17/2022 10:21 AM CDT): Well controlled on current therapy and will check a lipid panel and LFTs in 6 months. Assessment & Plan (07/17/2021 2:06 PM CRYPTOGRAPHIC CENTER SPECIALIST): Well controlled on current therapy and will check a lipid panel and LFTs in 6 months. Assessment & Plan (06/24/2021 3:28 PM CRYPTOGRAPHIC CENTER SPECIALIST): Continue statin and optimize glycemic control Assessment & Plan (12/19/2020 7:53 AM CDT): Continue statin and optimize glycemic control Assessment & Plan (07/13/2020 8:34 AM CRYPTOGRAPHIC CENTER SPECIALIST): Well controlled on current therapy and will check a lipid panel and LFTs in 6 months. Assessment & Plan (06/08/2020 8:31 AM CRYPTOGRAPHIC CENTER SPECIALIST): LDL within goal. Continue statin and optimize glycemic control Assessment & Plan (07/08/2019 8:42 AM CRYPTOGRAPHIC CENTER SPECIALIST): Well controlled on current therapy and will check a lipid panel and LFTs in 12 months. Assessment & Plan (09/01/2018 2:22 PM CRYPTOGRAPHIC CENTER SPECIALIST): Continue statin, optimize glycemic control Assessment & Plan (07/05/2018 9:23 AM CRYPTOGRAPHIC CENTER SPECIALIST): Well controlled on current therapy and will check a lipid panel and LFTs in 6 months. Assessment & Plan (08/26/2017 4:27 PM CRYPTOGRAPHIC CENTER SPECIALIST): Start atorvastatin and check lipids and LFTs in 3-4 months. Call back for results. Vitamin D deficiency 07/02/2017 Assessment & Plan (07/13/2024 12:22 PM CRYPTOGRAPHIC CENTER SPECIALIST): - Last Vitamin D 42 (12/2023), replete [...] week Assessment & Plan (09/12/2023 8:12 PM CRYPTOGRAPHIC CENTER SPECIALIST): Continue long-term supplement Assessment & Plan (02/16/2023 8:14 PM CDT): Continue long-term supplement Assessment & Plan (08/02/2022 12:15 PM CRYPTOGRAPHIC CENTER SPECIALIST): Continue current supplementation and check level in 1 year. Assessment & Plan (07/17/2021 2:06 PM CRYPTOGRAPHIC CENTER SPECIALIST): Continue current supplementation and check level in 1 year. Assessment & Plan (06/24/2021 3:29 PM CRYPTOGRAPHIC CENTER SPECIALIST): Continue long-term supplement Assessment & Plan (12/19/2020 7:53 AM CDT): Continue long-term supplement Assessment & Plan (07/13/2020 8:33 AM CRYPTOGRAPHIC CENTER SPECIALIST): Continue current supplementation and check level in 1 year. Assessment & Plan (06/08/2020 8:31 AM CRYPTOGRAPHIC CENTER SPECIALIST): Vitamin-D level within goal, continue chronic supplement Assessment & Plan (07/08/2019 8:42 AM CRYPTOGRAPHIC CENTER SPECIALIST): Continue current supplementation and check level in 1 year. Assessment & Plan (06/03/2019 8:24 AM CDT): Recently ran out of supplement, so we will restart and check her level today. Also check B12 Assessment & Plan (09/01/2018 2:22 PM CRYPTOGRAPHIC CENTER SPECIALIST): Continue supplement Assessment & Plan (07/05/2018 9:23 AM CRYPTOGRAPHIC CENTER SPECIALIST): Continue current supplementation and check level in 1 year. Assessment & Plan (08/26/2017 4:26 PM CRYPTOGRAPHIC CENTER SPECIALIST): Continue current supplementation and check level in 1 year. Uncontrolled type 2 diabetes mellitus with hyper glycemia 03/24/2016 Overview (07/05/2018): Cannot tolerate metformin, glipizide due to nausea/vomiting; Invokana works better than jardiance. Does not tolerate acarbose Assessment & Plan (08/26/2024 6:10 PM CRYPTOGRAPHIC CENTER SPECIALIST): Assessment & Plan (07/13/2024 12:20 PM CRYPTOGRAPHIC CENTER SPECIALIST): - Diabetes is complicated by hyperlipidemia, hypertension, morbid obesity and chronic steroid use. Uncontrolled. Lab Results Component Value Date HGBA1C 11.7 07/13/2024 Per [place] [employer], goal A1c is less 7% [...] in prescriptions for both Dexcom G7 and EarnixStyle Silva 3 CGM for olivares checking. Also [...] Return visit 3 months to see the BINDER COVERSTITCH/PA, 6 months to see me. Assessment & [...] Component Value Date HGBA1C 12.5 11/17/2023 Per [place] [employer], goal A1c is less 7% [...] Component Value Date HGBA1C 12.5 11/17/2023 Per [place] [employer], goal A1c is less 7% without significant hypoglycemia. - Management Goal: re-start and adherence to medication regimen - Continue current medication regimen at this time. - Patient called local pharmacy to confirm that they do have prescriptions for her Semglee. She is going to steel pickler today after this visit. - Insurance [...] etc. Assessment & Plan (09/12/2023 8:13 PM CRYPTOGRAPHIC CENTER SPECIALIST): Very high glucoses; multifactorial including steroid therapy, [...] daily. Assessment & Plan (06/24/2021 3:29 PM CRYPTOGRAPHIC CENTER SPECIALIST): Much improved but needs a little more basal insulin. Assessment & Plan (12/19/2020 7:53 AM CDT): Multiple medications, but now requires insulin. We can gradually adjust her Lantus based on her clinical response. Assessment & Plan (06/08/2020 8:32 AM CRYPTOGRAPHIC CENTER SPECIALIST): Glucoses somewhat better now that she is [...] motivator. Assessment & Plan (07/08/2019 8:43 AM CRYPTOGRAPHIC CENTER SPECIALIST): Continue increased dose of Ozempic and also continue Invokana. Importance of dietary changes increase exercise weight loss discussed. Follow-up with her side stitching machine operator as they direct. Assessment & Plan (06/03/2019 8:25 AM CDT): Somewhat suboptimal, would benefit from increasing Ozempic and continuing efforts with diet and lifestyle. Needs follow-up labs Assessment & Plan (09/01/2018 2:22 PM CRYPTOGRAPHIC CENTER SPECIALIST): Glucoses a little high, but she has bruising with Victoza so she may benefit by changing to weekly Ozempic, which is a little stronger, as well. Jardiance is been ineffective, so we may need to provide preauthorization for Invokana Assessment & Plan (07/05/2018 9:23 AM CRYPTOGRAPHIC CENTER SPECIALIST): A1c above goal. We stressed importance of increased exercise, reduce calories, weight loss. Could consider switching Victoza to ozempic. Otherwise does not tolerate metformin or sulfonylureas. May need insulin soon. She is directed to follow up with her side stitching machine operator more quickly than her next scheduled appointment in November. Assessment & Plan (08/26/2017 4:26 PM CRYPTOGRAPHIC CENTER SPECIALIST): Continue current medication regimen and follow up with her side stitching machine operator as they direct. Low carb diet weight loss recommended. Check blood sugars once daily. Start atorvastatin and check lipids and LFTs in 3-4 months. Anxiety state 12/17/2013 Overview (11/07/2016): ANXIETY STATE NOS Benign hypertension 12/17/2013 Overview (11/07/2016): BENIGN HYPERTENSION Assessment & Plan (07/13/2024 12:21 PM CRYPTOGRAPHIC CENTER SPECIALIST): - Above goal today - Encouraged her [...] monitor. Assessment & Plan (06/08/2023 5:25 PM CRYPTOGRAPHIC CENTER SPECIALIST): Stop amlodipine with current issues of swelling. Pressure currently well controlled and should monitor at home Assessment & Plan (01/21/2023 9:49 AM CDT): Blood pressure well controlled on lisinopril Assessment & Plan (09/04/2022 2:34 PM CRYPTOGRAPHIC CENTER SPECIALIST): Blood pressure well controlled on her lisinopril. Assessment & Plan (08/02/2022 12:15 PM CRYPTOGRAPHIC CENTER SPECIALIST): Increase lisinopril to 20 mg daily. Monitor blood pressure at home call back if no improvement. Assessment & Plan (01/17/2022 10:21 AM CDT): Well controlled on the current regimen. Avoidance of salt, proper body weight, and routine exercise recommended. Assessment & Plan (07/17/2021 2:06 PM CRYPTOGRAPHIC CENTER SPECIALIST): Well controlled on the current regimen. Avoidance of salt, proper body weight, and routine exercise recommended. Assessment & Plan (04/22/2021 8:24 AM CDT): Well controlled on the current regimen. Avoidance of salt, proper body weight, and routine exercise recommended. Assessment & Plan (07/13/2020 8:34 AM CRYPTOGRAPHIC CENTER SPECIALIST): Well controlled on the current regimen. Avoidance of salt, proper body weight, and routine exercise recommended. Assessment & Plan (07/08/2019 8:42 AM CRYPTOGRAPHIC CENTER SPECIALIST): Well controlled on the current regimen. Avoidance of salt, proper body weight, and routine exercise recommended. Assessment & Plan (09/01/2018 2:21 PM CRYPTOGRAPHIC CENTER SPECIALIST): Blood pressure close to target, working on diet and lifestyle Assessment & Plan (07/05/2018 9:23 AM CRYPTOGRAPHIC CENTER SPECIALIST): Well controlled on the current regimen. Avoidance of salt, proper body weight, and routine exercise recommended. Assessment & Plan (08/26/2017 4:25 PM CRYPTOGRAPHIC CENTER SPECIALIST): Well controlled on the current regimen. Avoidance of salt, proper body weight, and routine exercise recommended. Anemia 12/29/2012 Extrinsic asthma 08/19/2012 Overview (06/03/2019): Description: frequent flares Assessment & Plan (08/26/2024 6:08 PM CRYPTOGRAPHIC CENTER SPECIALIST): Recent exacerbation due to CAP followed by RSV Symptoms improved Continue present plan and medication--albuterol prn, montelukast Assessment & Plan (07/13/2020 8:36 AM CRYPTOGRAPHIC CENTER SPECIALIST): Doing well on her Symbicort. Okay to discontinue and use albuterol only as needed. Restart Symbicort if uses her albuterol more than 2 times a week. Sleep apnea syndrome 04/01/2012 Overview (11/12/2017): Description: CPAP Assessment & Plan (01/06/2024 9:08 AM CDT): Patient is compliant with the CPAP machine and gets symptomatic relief. Assessment & Plan (08/02/2022 12:15 PM CRYPTOGRAPHIC CENTER SPECIALIST): Patient is compliant with the CPAP machine and gets symptomatic relief. Assessment & Plan (07/17/2021 2:06 PM CRYPTOGRAPHIC CENTER SPECIALIST): Repeat sleep study confirmed obstructive sleep apnea [...] syndrome. Assessment & Plan (07/13/2020 8:34 AM CRYPTOGRAPHIC CENTER SPECIALIST): Patient is compliant with the CPAP machine and gets symptomatic relief. Assessment & Plan (07/08/2019 8:42 AM CRYPTOGRAPHIC CENTER SPECIALIST): Patient is compliant with the CPAP machine [...] legs Assessment & Plan (06/15/2023 10:47 AM CRYPTOGRAPHIC CENTER SPECIALIST): Improved after addition of doxycycline to her Bactrim. Call back if symptoms worsen after doxycycline runs out Assessment & Plan (06/08/2023 5:25 PM CRYPTOGRAPHIC CENTER SPECIALIST): Seems like cellulitis slow to improve either [...] yearly. Colonoscopy due March 2027. Follow-up the agricultural agent for breast exam pelvic exam as they direct. Will see her back in about 6 months sooner if needed. Assessment & Plan (08/02/2022 12:17 PM CRYPTOGRAPHIC CENTER SPECIALIST): Flu shot each May. Tetanus booster every 10 years. Pneumovax completed. COVID booster recommended. Mammogram yearly. Colonoscopy due March 2027. Follow-up the agricultural agent for breast exam pelvic exam as they direct. Will see her back in 6 months with lab sooner if needed. Assessment & Plan (07/17/2021 2:08 PM CRYPTOGRAPHIC CENTER SPECIALIST): Flu shot each May. Tetanus booster every 10 years. Pneumovax completed. COVID vaccine completed. Mammogram yearly. Colonoscopy ordered and she should verify coverage before proceeding. Follow-up the agricultural agent for breast exam and pelvic exam as they direct. We will see her back in 1 year for physical and fasting lab sooner if needed. Assessment & Plan (07/13/2020 8:35 AM CRYPTOGRAPHIC CENTER SPECIALIST): Flu shot each May. Tetanus booster every 10 years. She has had a Pneumovax. Mammogram was abnormal back in August and she has delayed follow-up studies until now and she is urged to get her diagnostic and ultrasound studies done at her earliest convenience and she is aware of the risks posed her health with delay in proceeding. Follow-up the agricultural agent for breast exam and pelvic exam as they direct. We will see her back in 1 year for wellness visit fasting lab sooner if needed. Assessment & Plan (07/08/2019 8:43 AM CRYPTOGRAPHIC CENTER SPECIALIST): Flu shot each May. Tetanus booster every 10 years. Mammogram ordered. Will see her back in 1 year for physical and fasting lab sooner if needed. Assessment & Plan (07/05/2018 9:24 AM CRYPTOGRAPHIC CENTER SPECIALIST): Tetanus booster today. Flu shot each May. Mammogram ordered. Patient should follow-up the agricultural agent breast exam and pelvic exam. We will see her back in 1 year for wellness visit fasting lab sooner if needed. Assessment & Plan (08/26/2017 4:27 PM CRYPTOGRAPHIC CENTER SPECIALIST): Flu shot each May. Tetanus booster every 10 years. See her agricultural agent for breast exam mammogram and Pap smear is a direct. We will see her back in 1 year with fasting lab sooner if needed. Morbid obesity 08/26/2017 07/05/2018 Assessment & Plan (08/26/2017 4:28 PM CRYPTOGRAPHIC CENTER SPECIALIST): Patient is encouraged to lose weight with [...] Type Department Care Team Description 09/09/2024 Documentation [facility] at [address] [address] Tiffanie Cantu, PT PT Discharge 09/02/2024 Telephone [facility] at [address] [address] Tiffanie Cantu, PT Cancel 08/30/2024 Telephone [facility] at [address] [address] Ele Vazquez, PT Cancel 08/24/2024 Telephone [facility] [address] [address] Yuki Mccain RN 08/23/2024 11:00 AM CRYPTOGRAPHIC CENTER SPECIALIST Office Visit [facility] Primary Care - [facility] [id number] [place] [address] [address] [address] Lynn Rodriguez MD Mild intermittent extrinsic asthma without complication (Primary Dx); Impaired mobility; Acute hypoxic respiratory failure (HCC); History of respiratory syncytial virus (RSV) vaccination; Class 3 severe obesity due to excess calories with serious comorbidity and body mass index (BMI) of 45.0 to 49.9 in adult (HCC) 08/19/2024 Telephone [facility] Home Care Services [address] [place] [id number] Sarah Baird, RN Medical Question/Miscellane ous 08/19/2024 Telephone [facility] [address] [place] [phone] Sarah Baird, RN 08/18/2024 Telephone [facility] [address] [place] [address] Sarah Baird, RN 08/17/2024 Telephone [facility] [address] [place] [id number] Sarah Baird, RN 08/09/2024 Orders Only [facility] Endocrinology Metabolism and Lipid [address] [facility] [address] [place] [address] [place] [id number] Stephanie Sandoval RMA Uncontrolled type 2 diabetes mellitus with hyperglycemia (HCC) 08/09/2024 Telephone [facility] at [address] [address] Ele Vazquez, PT Cancel 08/05/2024 Telephone [facility] at [address] [address] Ele Vazquez, PT Cancel (excused) 08/04/2024 Telephone [facility] at [address] [id number] Tiffanie Cantu, PT Appointment 07/29/2024 12:00 PM CRYPTOGRAPHIC CENTER SPECIALIST Therapy [facility] at [address] [address] Tiffanie Cantu, PT Impaired mobility (Primary Dx); Lymphedema 07/29/2024 Plan of Care Documentation [facility] at [address] [address] 07/13/2024 9:00 AM CRYPTOGRAPHIC CENTER SPECIALIST Office Visit [facility] Endocrinology Metabolism and Lipid [address] [facility] [address] [place] [address] [place] [phone] Shirley Teixeira PA Uncontrolled type 2 diabetes mellitus with hyperglycemia (HCC) (Primary Dx); Morbid obesity with BMI of 50.0-59.9, adult (HCC); Benign hypertension; Mixed hyperlipidemia; Vitamin D deficiency; intermodal dispatcher 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 user; half-way (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) from Last 3 Months Immunizations Immunization Administration Dates Next Due Influenza, Quadrivalent, Rosita l Culture-based MDCK, Preservative Free, Antibiotic Free, Intramuscular 05/13/2023,05/23/2022 Influenza, Quadrivalent, Spl it, Intramuscular 05/03/2015 Influenza, Quadrivalent, Spl it, Preservative Free, Intramuscular 05/16/2020,05/07/2018 Influenza, Unspecified 05/16/2021,2020,04/22/2021(Defer red: Patient Refused),03/19/2021(Deferred: Patient Refused),05/12/2019,05/07/2017 Zerply (J&J) SARS-CoV-2 Vaccination 10/05/2020 Pneumococcal Conjugate Pcv20 04/06/2024 Pneumococcal Polysaccharide PPV23 08/03/2010, Td, adsorbed 07/05/2018 Tdap 10/04/2007 Surgical History Surgery Date Site/Laterality Comments OTHER SURGICAL HISTORY Sleep apnea: CPAP OTHER SURGICAL HISTORY Internal derangement of the knee: knee arthroscopy MYOMECTOMY Myomectomy COLONOSCOPY 04/02/2022 KNEE ARTHROSCOPY W/ LATERAL RELEASE ABDOMINAL SURGERY Medical History Medical History Date Comments Hypertension Hypertension Hx Other Medical Hyperlipidemia; Comments: [facility] 04/11/2014 - Hx Other Medical Diabetes; Comme nts: [facility] 04/11/2014 - Hx Other Medical Seasonal allerg ies; Comments: [facility] 04/11/2014 - Hx Other Medical Sleep apnea; Co mments: [facility] 04/11/2014 - Hx Other Medical 2013 Internal derang ement of the knee; Comments: [facility] 04/11/2014 - Hx Other Medical Depression; Com ments: [facility] 04/11/2014 - Hx Other Medical D and C Hx Other Medical D/C 02/2016 Hx Other Medical R knee meniscal repair 05/2014 Hx Other Medical Large uterine f ibroid resected 04/2015, uterine darby Hx Other Medical IVF transfer 2015 Hx Other Medical 01: Bariatric Surgeon -- Dr Estefani Sheikh Morbid obesity (HCC) [...] on file Legal Sex Female 11:54 PM [employer] [employer] Gender Identity Female 09/19/2020 8:37 AM [facility] Sexual Orientation Straight 09/19/2020 8: 37 AM [facility] Obstetrics History Para Term AB IAB SAB Ectopic Multiple Livin g Live Births 1 1 1 Date Outcome GA Total Labor Labor/2nd/3rd Weight Sex Type Anes PTL Guillermina A1 A5 Name Clin Term Last Filed Vital Signs Vital Sign Reading Time Taken Comments Blood Pressure 124/88 08/23/2024 10:35 AM [facility] Pulse 91 08/23/2024 10:35 AM [facility] Temperature 36.5 C (97.7 F) 08/23/2024 10:35 AM [facility] Respiratory Rate 24 08/23/2024 10:35 AM [facility] Oxygen Saturation 98% 08/23/2024 10:35 AM [facility] Inhaled Oxygen Concentration - - Weight 138 kg (304 lb 3.8 oz) 08/23/2024 10:35 A M [facility] Height 167.6 cm (5' 6 ) 08/23/2024 10:35 AM [facility] [employer] Body Mass Index 49.1 08/23/2024 10:35 AM [facility] [employer] Plan of Treatment Health Maintenance Due Date [...] 07/08/2022, Additional history exists eGFR 12/28/2024 12/29/2023, 01/2022, 01/14/2022, Additional history exists Regular Well Visit/Exam [...] HEMOGLOBIN A1C Routine 07/13/2024 9 :08 AM [facility] [employer] Uncontrolled type 2 diabetes mellitus with hyperglycemia (HCC) POCT GLUCOSE 88647 Routine 07/13/2024 9: 08 AM [facility] [employer] [employer] Uncontrolled type 2 diabetes mellitus with hyperglycemia [...] Results * POCT glucose (07/13/2024 9:08 AM [facility] [employer]) Glucose Blood, POC 161 mg/dL Blood 07/13/2024 9:08 AM [facility] Shirley CHUN POINT OF CARE TEST ORDERA BLES Final Result * POCT hemoglobin A1c (07/13/2024 9:08 AM [facility] [employer]) Pathologist [facility] Hemoglobin A1C, POC 11.7 4.0 - 5.6 % Blood 07/13/2024 9:08 AM [facility] [employer] Result [facility] Shirley CHUN POINT OF CARE TEST ORDERA BLES Final Result * (ABNORMAL) Comprehensive metabolic panel (12/29/2023 1:40 PM CDT) Pathologist [facility] Glucose 121(H) 65 - 99 mg/dL [facility] Comment: Fasting reference interval For someone without known diabetes, a glucose value between 100 and 125 mg/dL is consistent with prediabetes and should be confirmed with a follow-up test. BUN 15 7 - 25 mg/dL [facility] Creatinine 0.69 0.50 - 0.99 mg/dL [facility] eGFR 108 > OR = 60 mL/min/1.7 3m2 [facility] ian [facility] BUN/creat ratio SEE NOTE: 6 - 22 (calc) [facility] Comment: Not Reported: BUN and Creatinine are within reference range. Sodium 138 135 - 146 mmol/L [facility] Potassium, pl 4.1 3.5 - 5.3 mmol/L [facility] Chloride 97(L) 98 - 110 mmol/L [facility] CO2 30 20 - 32 mmol/L [facility] ian [facility] Calcium 9.7 8.6 - 10.2 mg/dL [facility] Protein, sr 7.0 6.1 - 8.1 g/dL [facility] Albumin 4.3 3.6 - 5.1 g/dL [facility] GLOBULIN 2.7 1.9 - 3.7 g/dL (calc) [facility] Alb/glob ratio 1.6 1.0 - 2.5 (calc) [facility] Bilirubin, total 0.6 0.2 - 1.2 mg/dL [facility] Alk phos 46 31 - 125 U/L [facility] AST 13 10 - 35 U/L [facility] ALT (SGPT) 32(H) 6 - 29 U/L [facility] Blood 12/29/2023 1:40 PM CDT 12/29/2023 1:42 PM CDT Narrative [facility] - 12/30/2023 3:37 PM CDT FASTING:YES FASTING: YES Kishor Saleh MD LAB BLOOD ORDERABLES Final R esult Performing Organization Address City/[facility]/ZIP Co de Phone Number [facility] [address] [place] [address] * Albumin Creatinine Ratio, Urine (12/29/2023 12:26 PM CDT) Albumin Ur 14.1 mg/L Comment: Interpretive Data No reference range established. Current interpretive data was last revised 2018. Creatinine Ur 117.0 mg/dL [facility] Comment: Interpretive Data No reference range established. Current interpretive data was last revised 2018. Albumin Creatinine Ratio, Ur 12 1 - 29 mg/g [facility] Urine 12/29/2023 12:2 6 PM CDT 12/29/2023 1:04 PM CDT Shirley CHUN LAB URINE ORDERABLES Flora l Result Performing Organization Address City/[facility] Co de Phone Number [facility] [place] [address] * (ABNORMAL) Lipid panel (12/29/2023 12:26 PM [...] revised on 2018. Triglycerides 265(H) <=149 mg/dL [facility] Comment: Interpretive Data Ages < or = [...] revised on 2018. HDL 87 >=40 mg/dL [facility] Comment: Interpretive Data Ages < or [...] on 2018. LDL, calculated 68 <=129 mg/dL [facility] Comment: Interpretive Data Ages < or = [...] revised on 2018. Non-HDL Cholesterol 121 mg/dL [facility] Comment: Interpretive Data Ages < or [...] last revised on 2018. Chol/HDL ratio 2 [facility] Blood 12/29/2023 12:2 6 PM CDT 12/29/2023 1:04 PM CDT us Shirley CHUN LAB BLOOD ORDERABLES Flora dowd Result [facility] [place] [address] * Screening Mammogram Bilateral W Vincenzo (12/29/2023 9:26 AM CDT) Anatomical Region Laterality Modality Breast Bilateral Mammography Narrative 12/30/2023 2:01 PM CDT Mammogram Technique: Bilateral Digital Breast Tomosynthesis, Bilateral C-view 2D Screening mammogram. Views obtained: bilateral craniocaudal and bilateral mediolateral oblique. Computer Aided Detection was performed. Mammogram Findings: The present examination has been compared to prior imaging studies performed at [facility]. [facility] on 01/01/2022 and 02/25/2023, and at [facility]. [place], [place] on 09/12/2020. There are scattered areas [...] compared to prior imaging studies performed at [facility]. [facility] on 01/01/2022 and 02/25/2023, and at [facility]. [place], [place] on 09/12/2020. There are scattered areas of fibroglandular density. There is no suspicious abnormality in either breast. Impression: There is no mammographic evidence of malignancy. Annual screening mammography is recommended. OVERALL FINAL ASSESSMENT: BI-RADS CATEGORY 1: Negative. us Kishor Saleh MD IMG MAMMO PROCEDURES Final R esult * Diabetic Eye Exam (11/10/2022) us Generic External Data Provider HEALTH MAINTENANC E Final Result * COLONOSCOPY (04/02/2022 9:28 AM CDT) Anatomical Region Laterality Modality Other Narrative Procedure Note Ad Camacho MD - 04/02/2022 9:28 AM CDT [facility] Patient Name: Camila Huitron Procedure Date: 04/02/2022 9:28 AM Date of : 1975 Admit Type: Outpatient Age: 46 Gender: Female Attending MD: Ad Camacho M.D. Room: [facility] ENDOSCOPY ROOM 2 Note Status: Finalized [...] scope was passed under direct vision. TheColonoscope [id number] was introduced through the anus and advanced [...] 9:28 AM Procedure Code(s): --- Professional --- 33758, Colonoscopy, flexible; with biopsy, single or multiple Diagnosis Code(s): --- Professional --- Z12.11, Encounter for screening for malignant neoplasm of colon D12.3, Benign neoplasm of transverse colon (hepatic flexure orsplenic flexure) D12.4, Benign neoplasm of descending colon D12.8, Benign neoplasm of rectum CPT copyright 2020 [employer]. All rights reserved. The codes documented in this report are preliminary and upon charge weigher reviewmay be revised to meet current compliance requirements. Recognized by the [employer] for promoting quality in endoscopy Ad Camacho MD ENDOSCOPY PROCEDURES Final Resul t * Diabetic Foot Exam (03/26/2021) Adamariss Art Staley MA - 03/26/2021 In care everywhere Historical Provider HEALTH MAINTENANCE Final Result from Last 3 Months or Most Recently Relevant to Health Maintenance Insurance [employer] [facility] HMO/PPO Address: [address] [address] [place] [address] 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
--- OUTSIDE RECORDS SUMMARY | 2024-10-03 02:25 | XMS_ITS | Referral Summary ---
Author Organization [facility] Address [address] [facility] [place] [address] Care Team Providers Care Solderer Dipper Name Role Phone Kishor Saleh MD Primary Care Provider Source Comments [facility] [employer],non-owned Affiliates and Associated Physician Practices is amultiple site organization consisting of ambulatory clinics and hospital sitesin [place], [place], [place] and [place]. This disclosure is being madepursuant to the Care Everywhere program and may not contain all information available regarding this patient. Last updated 18.[facility] Encounters Date Type Department Care Team Description 08/13/2024 3:43 PM REGIONAL 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 - 08/18/2024 5:19 PM REGIONAL 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 Hospital Encounter [facility] [address]N [address] [place], [place] [id number] Alexus Ramirez MD Ramgopal, Britney Martin, MD Fatima, Noor E, MD Yu, Yang, MD Zhu, He, MD Hospitalist Discharge Disposition: Home or Self Care 08/13/2024 Travel from Last 3 Months Allergies Active Allergy Reactions Criticality Noted Date Comments Amlodipine Base Nausea and/or Vomiting 07/31/20 Amoxicillin-Pot Clavulanate Nausea and/or Vomiting 07/31/2023 Glipizide [...] fluticasone propionate (Flonase) 50 MCG/ACT nasal spray Yulan 2 (two) sprays into each nostril once [...] Active vitamin D, ergocalciferol, (Drisdol) 1.25 MG (68280 UT) capsule Take 1 (one) capsule by [...] time in the past 12 m [facility], were you homeless or living in a [facility] (including now)? No 08/15/2024 Sex and Gender Information Value Date Recorded Sex Assigned at Not on file Gender Identity Not on file Sexual Orientation Not on file Last Filed Vital Signs Vital Sign Reading Time Taken Comments Blood Pressure 154/92 08/18/2024 12:25 PM REGIONAL 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 Pulse 102 08/18/2024 12:25 PM REGIONAL 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 Temperature 36.7 C (98.1 F) 08/18/2024 12:25 PM REGIONAL 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 Respiratory Rate 23 08/18/2024 12:2 5 PM REGIONAL 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 Oxygen Saturation 90% 08/18/2024 12: 25 PM REGIONAL 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 Inhaled Oxygen Concentration 21% 08/18/2024 2 :00 PM REGIONAL 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 Weight 132.6 kg (292 lb 4.8 oz) 08/18/2024 4:00 AM REGIONAL 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 Height 167.6 cm (5' 6 ) 08/13/2024 5:14 PM REGIONAL 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 Body Mass Index 47.18 08/13/2024 5:14 PM REGIONAL 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 Functional Status Functional Status Response Date of [...] CARDIAC RHYTHM STRIP ORDER 08/23/2024 2:41 AM REGIONAL 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 HOME O2 EVAL (DESATURATION SCREEN) Routine 08/18/2024 10:39 AM REGIONAL 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 GLUCOSE - POINT OF CARE Routine 08/18/2024 7:46 AM REGIONAL 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 GLUCOSE - POINT OF CARE Routine 08/17/2024 9:47 PM REGIONAL 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 GLUCOSE - POINT OF CARE Routine 08/17/2024 5:03 PM REGIONAL 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 GLUCOSE - POINT OF CARE Routine 08/17/2024 12:36 PM REGIONAL 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 GLUCOSE - POINT OF CARE Routine 08/17/2024 7:48 AM REGIONAL 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 CBC W/O DIFFERENTIAL AM Draw 08/17/2024 4:16 AM REGIONAL 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 BASIC METABOLIC PANEL (CALCIUM TOTAL) AM Draw 08/17/2024 4:16 AM REGIONAL 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 GLUCOSE - POINT OF CARE Routine 08/17/2024 12:18 AM REGIONAL 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 VANCOMYCIN LEVEL TROUGH Timed 08/16/2024 6:35 PM REGIONAL 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 GLUCOSE - POINT OF CARE Routine 08/16/2024 6:43 AM REGIONAL 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 CBC W/O DIFFERENTIAL AM Draw 08/16/2024 4:59 AM REGIONAL 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 BASIC METABOLIC PANEL (CALCIUM TOTAL) AM Draw 08/16/2024 4:59 AM REGIONAL 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 GLUCOSE - POINT OF CARE Routine 08/15/2024 10:15 PM REGIONAL 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 GLUCOSE - POINT OF CARE Routine 08/15/2024 4:36 PM REGIONAL 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 GLUCOSE - POINT OF CARE Routine 08/15/2024 2:22 PM REGIONAL 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 GLUCOSE - POINT OF CARE Routine 08/15/2024 12:24 PM REGIONAL 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 CULTURE BLOOD Timed 08/15/2024 8:54 AM REGIONAL 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 CULTURE BLOOD Timed 08/15/2024 8:45 AM REGIONAL 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 GLUCOSE - POINT OF CARE Routine 08/15/2024 5:48 AM REGIONAL 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 CBC W/O DIFFERENTIAL AM Draw 08/15/2024 3:33 AM REGIONAL 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 BASIC METABOLIC PANEL (CALCIUM TOTAL) AM Draw 08/15/2024 3:33 AM REGIONAL 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 GLUCOSE - POINT OF CARE Routine 08/14/2024 11:41 PM REGIONAL 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 GLUCOSE - POINT OF CARE Routine 08/14/2024 6:04 PM REGIONAL 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 GLUCOSE - POINT OF CARE Routine 08/14/2024 12:04 PM REGIONAL 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 GLUCOSE - POINT OF CARE Routine 08/14/2024 10:07 AM REGIONAL 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 GLUCOSE - POINT OF CARE Routine 08/14/2024 9:14 AM REGIONAL 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 GLUCOSE - POINT OF CARE Routine 08/14/2024 8:22 AM REGIONAL 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 GLUCOSE - POINT OF CARE Routine 08/14/2024 7:16 AM REGIONAL 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 GLUCOSE - POINT OF CARE Routine 08/14/2024 6:28 AM REGIONAL 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 GLUCOSE - POINT OF CARE Routine 08/14/2024 5:31 AM REGIONAL 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 GLUCOSE - POINT OF CARE Routine 08/14/2024 4:30 AM REGIONAL 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 GLUCOSE - POINT OF CARE Routine 08/14/2024 3:27 AM REGIONAL 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 HEMOGLOBIN A1C Routine 08/14/2024 3:27 AM REGIONAL 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 CBC W/O DIFFERENTIAL AM Draw 08/14/2024 3:27 AM REGIONAL 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 BASIC METABOLIC PANEL (CALCIUM TOTAL) AM Draw 08/14/2024 3:27 AM REGIONAL 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 GLUCOSE - POINT OF CARE Routine 08/14/2024 2:33 AM REGIONAL 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 GLUCOSE - POINT OF CARE Routine 08/14/2024 1:29 AM REGIONAL 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 GLUCOSE - POINT OF CARE Routine 08/14/2024 12:23 AM REGIONAL 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 GLUCOSE - POINT OF CARE Routine 08/13/2024 8:07 PM REGIONAL 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 STREP PNEUMONIAE ANTIGEN URINE Routine 08/13/2024 5:17 PM REGIONAL 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 LEGIONELLA ANTIGEN URINE Routine 08/13/2024 5:17 PM REGIONAL 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 RESPIRATORY PANEL WITH SARS-COV-2 BY PCR (STL) Routine 08/13/2024 5:09 PM REGIONAL 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 CULTURE BLOOD Timed 08/13/2024 5:09 PM REGIONAL 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 CULTURE MRSA Routine 08/13/2024 5:09 PM REGIONAL 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 DIFFERENTIAL MANUAL STAT 08/13/2024 5 :08 PM REGIONAL 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 PTT STAT 08/13/2024 5:08 PM REGIONAL 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 PT-INR STAT 08/13/2024 5:08 PM REGIONAL 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 PHOSPHORUS BLOOD STAT 08/13/2024 5:08 PM REGIONAL 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 MAGNESIUM BLOOD STAT 08/13/2024 5:08 PM REGIONAL 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 LIPASE BLOOD STAT 08/13/2024 5:08 PM REGIONAL 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 LACTIC ACID BLOOD STAT 08/13/2024 5:0 8 PM REGIONAL 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 COMPREHENSIVE METABOLIC PANEL STAT 08/13/2024 5:08 PM REGIONAL 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 CBC W AUTO DIFFERENTIAL STAT 08/13/2024 5:08 PM REGIONAL 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 B-TYPE NATRIURETIC PEPTIDE STAT 08/13/2024 5:08 PM REGIONAL 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 BCID PANEL Routine 08/13/2024 5:08 PM REGIONAL 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 CULTURE BLOOD Timed 08/13/2024 5:08 PM REGIONAL 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 GLUCOSE - POINT OF CARE Routine 08/13/2024 4:48 PM REGIONAL 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 BLOOD GASES ARTERIAL STAT 08/13/2024 4:16 PM REGIONAL 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 XR CHEST 1VW PORTABLE STAT 08/13/2024 4:04 PM REGIONAL 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 Acute hypoxic respiratory failure (HCC) from Last 3 Months Results * CARDIAC RHYTHM STRIP ORDER (08/23/2024 2:41 AM REGIONAL 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) Narrative 08/23/2024 2:41 AM REGIONAL 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 Ordered by an unspecified provider. Scanned Document CARDIAC SERVICES ORD ERABLES * GLUCOSE - POINT OF CARE (08/18/2024 7:46 AM REGIONAL 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) Only the most recent of28 resultswithin the time period is included. Glucose WB/POC 81 70 - 99 mg/dL 08/18/2024 7:51 AM REGIONAL 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 [facility] Specimen Type Cap Fingerstick 2024 7:51 AM REGIONAL 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 [facility] Blood BLOOD SPECIMEN / Unknown 08/18/2024 7:46 AM REGIONAL 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 08/18/2024 7:51 AM REGIONAL 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 Young Mcwilliams MD LAB - POINT OF CARE ORDERABLES [facility] [address] [place] [address] * (ABNORMAL) CBC W/O DIFFERENTIAL (08/17/2024 4:16 AM REGIONAL 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) Only the most recent of4 resultswithin the time period is included. WBC 16.3(H) 4.0 - 10.7 x10E9/L 08/17/2024 4:44 AM [facility] RBC Count 3.51(L) 3.90 - 5.20 x10E12/L 08/17/2024 4:44 AM [facility] Hemoglobin 10.3(L) 11.9 - 15.8 g/dL 08/17/2024 4:44 AM [facility] Hematocrit 32.6(L) 34.8 - 46.1 % 08/17/2024 4:44 AM [facility] MCV 92.9 80.0 - 98.0 fL 08/17/2024 4:44 AM [facility] MCH 29.3 26.7 - 33.6 pg 08/17/2024 4:44 AM [facility] MCHC 31.6(L) 31.7 - 36.3 g/dL 08/17/2024 4:44 AM [facility] RDW-CV 15.8(H) 11.3 - 14.8 % 08/17/2024 4:44 AM [facility] Platelet Count 478(H) 150 - 420 x10E9/L 08/17/2024 4:44 AM [facility] MPV 10.4 7.8 - 11.4 fL 08/17/2024 4:44 AM [facility] NRBC 0.8(H) <=0.0 /100 WBC 08/17/2024 4:44 AM [facility] Blood BLOOD SPECIMEN / Unknown Venipuncture / Unknown 08/17/2024 4:16 AM REGIONAL 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 08/17/2024 4:30 AM REGIONAL 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 Alexus Ramirez MD LAB - HEMATOLOGY ORD ERABLES [facility] [id number] [place] [address] * (ABNORMAL) BASIC METABOLIC PANEL (CALCIUM TOTAL) (08/17/2024 4:16 AM REGIONAL 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) Only the most recent of4 resultswithin the time period is included. Glucose 139(H) 70 - 99 mg/dL 08/17/2024 4:53 AM REGIONAL 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 [facility] Sodium 140 136 - 145 mmol/L 08/17/2024 4:53 AM [facility] Potassium 3.5 3.5 - 5.1 mmol/L 08/17/2024 4:53 AM [facility] Chloride 108(H) 98 - 107 mmol/L 08/17/2024 4:53 AM [facility] CO2 24 22 - 29 mmol/L 08/17/2024 4:53 AM [facility] Calcium 8.9 8.4 - 10.4 mg/dL 08/17/2024 4:53 AM [facility] Anion Gap 8 6 - 16 mmol/L 08/17/2024 4:53 AM [facility] BUN 15 5.3 - 18.7 mg/dL 08/17/2024 4:53 AM [facility] Creatinine 0.65 0.57 - 1.11 mg/dL 08/17/2024 4:53 AM [facility] eGFR by CKD-EPI >90 >=90 mL/min/1.7 3 m2 08/17/2024 4:53 AM [facility] Blood BLOOD SPECIMEN / Unknown Venipuncture / Unknown 08/17/2024 4:16 AM REGIONAL 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 08/17/2024 4:30 AM [facility] Alexus Ramirez MD LAB - CHEMISTRY MICHAEL MONTGOMERY [facility] Organization Address City/State/ZIP Co de Phone Number [facility] [address] [place] [address] * (ABNORMAL) VANCOMYCIN LEVEL TROUGH (08/16/2024 6:35 PM REGIONAL 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) Vancomycin Trough 6.1(L) 10.0 - 20.0 ug/mL 08/16/2024 7:22 PM REGIONAL 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 [facility] Blood BLOOD SPECIMEN / Unknown Venipuncture / Unknown 08/16/2024 6:35 PM REGIONAL 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 08/16/2024 7:02 PM REGIONAL 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 Anatoliy Wyman MD LAB - CHEMISTRY MICHAEL MONTGOMERY [facility] [address] [place] [address] * CULTURE BLOOD (08/15/2024 8:54 AM REGIONAL 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) Only the most recent of4 resultswithin the time period is included. Culture No growth day 5 LORENZO 08/20/2024 1:31 PM REGIONAL 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 [facility] Blood PERIPHERAL BLOOD / Unknown Venipuncture / Unknown 08/15/2024 8:54 AM REGIONAL 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 08/15/2024 9:13 AM REGIONAL 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 Amadeo Milner MD LAB - MICROBIOLOGY O RDERAJANETTE Performing Organization Address City/[facility] [address]/ZIP Co de Phone Number [facility] [address] [place], [place] [address] [phone] * (ABNORMAL) HEMOGLOBIN A1C (08/14/2024 3:27 AM REGIONAL 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) Hemoglobin A1c 10.1(H) <5.7 % 08/14/2024 3:48 AM REGIONAL 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 [facility] Estimated Average Glucose 243 mg/dL 08/14/2024 3:48 AM REGIONAL 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 [facility] Blood BLOOD SPECIMEN / Unknown Venipuncture / Unknown 08/14/2024 3:27 AM REGIONAL 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 08/14/2024 3:37 AM REGIONAL 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 Narrative [facility] - 08/14/2024 3:48 AM REGIONAL 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 HbA1c Interpretation: Normal: < 5.7% Pre-diabetes: 5.7-6.4% [...] MICHAEL MONTGOMERY Performing Organization Address [facility] [address]/[facility] Co de Phone Number [facility] [address] [place] [address] * STREP PNEUMONIAE ANTIGEN URINE (08/13/2024 5:17 PM REGIONAL 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) Streptococcus pneumoniae Antigen Urine Negative Negative 08/14/2024 8:17 AM REGIONAL 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 [facility] Urine URINE / Unknown Collection / Unknown 08/13/2024 5:17 PM REGIONAL 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 08/13/2024 5:22 PM REGIONAL 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 Narrative [facility] - 08/14/2024 8:17 AM REGIONAL 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 Patients who have received the Streptococcus pneumoniae [...] - MICROBIOLOGY O RDERABLES Performing Organization Address City/[facility] [address]/ZIP Co de Phone Number [facility] [address] [place] [address] [phone] * LEGIONELLA ANTIGEN URINE (08/13/2024 5:17 PM REGIONAL 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) Legionella Antigen Urine Negative Negative 08/14/2024 8:21 AM REGIONAL 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 [facility] Urine URINE / Unknown Collection / Unknown 08/13/2024 5:17 PM REGIONAL 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 08/13/2024 5:22 PM REGIONAL 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 Narrative [facility] - 08/14/2024 8:21 AM REGIONAL 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 This assay detects Legionella pneumophila serogroup one (1) antigen. A negative test result does not rule out the possibility of Legionella infection due to other serogroups or species of Legionella. A positive result may indicate a recent or remote infection with serogroup 1. Alexus Ramirez MD LAB - MICROBIOLOGY O RDERABLES [facility] [address] [place] [address], [facility] [phone] * (ABNORMAL) RESPIRATORY PANEL WITH SARS-COV-2 BY PCR (STL) (08/13/2024 5:09 PM REGIONAL 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) Pathologist [facility] Adenovirus PCR Not detected Not detected 08/13/2024 11:30 PM REGIONAL 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 [facility] Coronavirus 229E PCR Not detected Not detected 08/13/2024 11:30 PM REGIONAL 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 [facility] Coronavirus HKU1 PCR Not detected Not detected 08/13/2024 11:30 PM REGIONAL 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 [facility] Coronavirus NL63 PCR Not detected Not detected 08/13/2024 11:30 PM REGIONAL 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 [facility] Coronavirus OC43 PCR Not detected Not detected 08/13/2024 11:30 PM REGIONAL 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 [facility] COVID-19 PCR Not detected Not detected 08/13/2024 11:30 PM REGIONAL 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 [facility] Human Metapneumovirus PCR Not detected Not detected 08/13/2024 11:30 PM REGIONAL 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 [facility] Human Rhinovirus/Enterov irus PCR Not detected Not detected 08/13/2024 11:30 PM REGIONAL 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 [facility] Influenza A PCR Not detected Not detected 08/13/2024 11:30 PM REGIONAL 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 [facility] Influenza B PCR Not detected Not detected 08/13/2024 11:30 PM REGIONAL 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 [facility] Parainfluenza Virus 1 PCR Not detected Not detected 08/13/2024 11:30 PM REGIONAL 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 [facility] Parainfluenza Virus 2 PCR Not detected Not detected 08/13/2024 11:30 PM REGIONAL 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 [facility] Parainfluenza Virus 3 PCR Not detected Not detected 08/13/2024 11:30 PM REGIONAL 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 [facility] Parainfluenza Virus 4 PCR Not detected Not detected 08/13/2024 11:30 PM REGIONAL 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 [facility] Respiratory Syncytial Virus PCR Detected(A) Not detected 08/13/2024 11:30 PM REGIONAL 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 [facility] Bordetella parapertussis PCR Not detected Not detected 08/13/2024 11:30 PM REGIONAL 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 [facility] Bordetella pertussis PCR Not detected Not detected 08/13/2024 11:30 PM REGIONAL 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 [facility] Chlamydia pneumoniae PCR Not detected Not detected 08/13/2024 11:30 PM REGIONAL 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 [facility] Mycoplasma pneumoniae PCR Not detected Not detected 08/13/2024 11:30 PM REGIONAL 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 [facility] Microbiology SPECIMEN FROM NASOPHARYNGEAL STRUCTURE / Unknown Collection / Unknown 08/13/2024 5:09 PM REGIONAL 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 08/13/2024 5:20 PM REGIONAL 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 Narrative [facility] - 08/13/2024 11:30 PM REGIONAL 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 Contact and Droplet Precautions Required. This nucleic amplification assay has received FDA authorization via the [place] [employer]. Alexus Ramirez MD LAB - MICROBIOLOGY O RDMERISSA [facility] [address] [place] [address], [facility] [phone] * CULTURE MRSA (08/13/2024 5:09 PM REGIONAL 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) Culture Negative for methicillin-resist ant Staphylococcus aureus (MRSA) LORENZO 08/15/2024 8:16 AM REGIONAL 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 [facility] Microbiology SPECIMEN FROM NASAL FOSSAE / Unknown Collection / Unknown 08/13/2024 5:09 PM REGIONAL 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 08/13/2024 5:21 PM REGIONAL 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 Alexus Ramirez MD LAB - MICROBIOLOGY O RDERAJANETTE Performing Organization Address City/[facility] [address]/ZIP Co de Phone Number [facility] [address] [place] [address], [facility] [phone] * (ABNORMAL) BCID PANEL (08/13/2024 5:08 PM REGIONAL 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) Staphylococcus epidermidis Detected (A) Not detected 08/15/2024 2:03 AM REGIONAL 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 [facility] MECA/C (Methicillin-Resi stance Gene) Detected (A) Not detected 08/15/2024 2:03 AM REGIONAL 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 [facility] Comment:Results indicate met hicillin-resistant Staphylococcus epidermidis. Methicillin-resistance detected. Blood PERIPHERAL BLOOD / Unknown Venipuncture / Unknown 08/13/2024 5:08 PM REGIONAL 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 08/13/2024 5:19 PM REGIONAL 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 Narrative [facility] - 08/15/2024 2:03 AM REGIONAL 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 Blood Culture ID Panel performed by [employer] multiplex PCR. The Test panel includes: Gram [...] and MREJ (methicillin-resistance - MRSA), NDM ([place] pkiknsh-rhgl-dgudfgrgj), OXA-48-like (oxacillinase beta-lactamase),Ashly/B (vancomycin-resistance), VIM (Noa Intergrom-Encoded Metallo beta-lactamase). Alexus Ramirez MD LAB - MICROBIOLOGY O RDERABLES [facility] [address] [place] [address], [facility] [phone] * PTT (08/13/2024 5:08 PM REGIONAL 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) [facility] PTT 28.4 23.0 - 38.4 sec 08/13/2024 5:43 PM REGIONAL 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 [facility] Blood BLOOD SPECIMEN / Unknown Venipuncture / Unknown 08/13/2024 5:08 PM REGIONAL 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 08/13/2024 5:21 PM REGIONAL 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 Narrative [facility] - 08/13/2024 5:43 PM REGIONAL 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 Heparin Therapeutic Range for PTT: 69.0 - 110.0 seconds. Alexus Ramirez MD LAB - COAGULATION OR DERABLES Performing Organization Address [facility] [address]/[facility] Co de Phone Number [facility] [id number] [place] [address] * PT-INR (08/13/2024 5:08 PM REGIONAL 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) Pathologist [facility] PT 14.1 12.1 - 14.8 sec 08/13/2024 5:43 PM REGIONAL 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 [facility] INR 1.1 0.9 - 1.1 08/13/2024 5:43 PM REGIONAL 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 [facility] Blood BLOOD SPECIMEN / Unknown Venipuncture / Unknown 08/13/2024 5:08 PM REGIONAL 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 08/13/2024 5:21 PM REGIONAL 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 Narrative [facility] - 08/13/2024 5:43 PM REGIONAL 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 Conventional Warfarin Anticoagulant Therapy: INR Reference Range: 2.0-3.0 Intensive Warfarin Anticoagulant Therapy: INR Reference Range: 2.5-3.5 Alexus Ramirez MD LAB - COAGULATION OR DERABLES Performing Organization Address City/[facility] [address]/[facility] Co de Phone Number [facility] [id number] [place] [address] * (ABNORMAL) DIFFERENTIAL MANUAL (08/13/2024 5:08 PM REGIONAL 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) Pathologist [facility] Neutrophil % 90(H) 41 - 74 % 08/13/2024 6:34 PM REGIONAL 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 [facility] Lymphocyte % 4(L) 17 - 47 % 08/13/2024 6:34 PM REGIONAL 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 [facility] Monocyte % 1(L) 3 - 11 % 08/13/2024 6:34 PM REGIONAL 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 [facility] Basophil % 1 0 - 2 % 08/13/2024 6:34 PM REGIONAL 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 [facility] Myelocyte % 3(H) 0% % 08/13/2024 6:34 PM REGIONAL 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 [facility] Promyelocyte % 1(H) 0% % 08/13/2024 6:34 PM REGIONAL 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 [facility] Neutrophil Absolute 17.91(H) 1.60 - 7.50 x10E9/L 08/13/2024 6:34 PM REGIONAL 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 [facility] Lymphocyte Absolute 0.80(L) 1.00 - 4.40 x10E9/L 08/13/2024 6:34 PM REGIONAL 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 [facility] Monocyte Absolute 0.20 0.15 - 1.00 x10E9/L 08/13/2024 6:34 PM 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 [facility] Basophil Absolute 0.20(H) 0.00 - 0.13 x10E9/L 08/13/2024 6:34 PM 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 [facility] RBC Morphology REVIEWED 08/13/2024 6:34 PM 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 [facility] Blood BLOOD SPECIMEN / Unknown Venipuncture / Unknown 08/13/2024 5:08 PM 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 08/13/2024 5:21 PM 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 Alexus Ramirez MD LAB - HEMATOLOGY ORD ERABLES [facility] [id number] [place] [address] * (ABNORMAL) CBC W AUTO DIFFERENTIAL (08/13/2024 5:08 PM 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) WBC 19.9(H) 4.0 - 10.7 x10E9/L 08/13/2024 6:34 PM 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 [facility] RBC Count 3.41(L) 3.90 - 5.20 x10E12/L 08/13/2024 6:34 PM 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 [facility] Hemoglobin 10.1(L) 11.9 - 15.8 g/dL 08/13/2024 6:34 PM 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 [facility] Hematocrit 31.0(L) 34.8 - 46.1 % 08/13/2024 6:34 PM 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 [facility] MCV 90.9 80.0 - 98.0 fL 08/13/2024 6:34 PM 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 [facility] MCH 29.6 26.7 - 33.6 pg 08/13/2024 6:34 PM [facility] MCHC 32.6 31.7 - 36.3 g/dL 08/13/2024 6:34 PM [facility] [facility] RDW-CV 15.2(H) 11.3 - 14.8 % 08/13/2024 6:34 PM [facility] Platelet Count 340 150 - 420 x10E9/L 08/13/2024 6:34 PM [facility] MPV 11.4 7.8 - 11.4 fL 08/13/2024 6:34 PM [facility] Blood BLOOD SPECIMEN / Unknown Venipuncture / Unknown 08/13/2024 5:08 PM REGIONAL 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 08/13/2024 5:21 PM REGIONAL 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 Alexus Ramirez MD LAB - HEMATOLOGY ORD ERABLES Performing Organization Address [facility] [address] [facility] Co de Phone Number [facility] [phone] [place] [phone] * B-TYPE NATRIURETIC PEPTIDE (08/13/2024 5:08 PM REGIONAL 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) Pathologist [facility] BNP 43 <=100 pg/mL 08/13/2024 5:45 PM [facility] Blood BLOOD SPECIMEN / Unknown Venipuncture / Unknown 08/13/2024 5:08 PM REGIONAL 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 08/13/2024 5:21 PM REGIONAL 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 Alexus Ramirez MD LAB - CHEMISTRY ORDE RABLES Performing Organization Address City/[facility] [address]/[facility] Co de Phone Number [facility] [id number] [place] [address] * (ABNORMAL) COMPREHENSIVE METABOLIC PANEL (08/13/2024 5:08 PM REGIONAL 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) Glucose 396(H) 70 - 99 mg/dL 08/13/2024 5:39 PM REGIONAL 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 [facility] Sodium 135(L) 136 - 145 mmol/L 08/13/2024 5:39 PM [facility] Potassium 5.0 3.5 - 5.1 mmol/L 08/13/2024 5:39 PM REGIONAL 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 [facility] Chloride 99 98 - 107 mmol/L 08/13/2024 5:39 PM [facility] CO2 26 22 - 29 mmol/L 08/13/2024 5:39 PM [facility] Calcium 9.2 8.4 - 10.4 mg/dL 08/13/2024 5:39 PM [facility] Anion Gap 10 6 - 16 mmol/L 08/13/2024 5:39 PM [facility] BUN 28(H) 5.3 - 18.7 mg/dL 08/13/2024 5:39 PM [facility] Creatinine 0.89 0.57 - 1.11 mg/dL 08/13/2024 5:39 PM [facility] Alkaline Phosphatase 111 40 - 150 U/L 08/13/2024 5:39 PM [facility] ALT 40 0 - 55 U/L 08/13/2024 5:39 PM [facility] AST 15 5 - 34 U/L 08/13/2024 5:39 PM [facility] Protein Total 6.8 6.4 - 8.3 gm/dL 08/13/2024 5:39 PM [facility] Albumin 2.6(L) 3.4 - 5.0 gm/dL 08/13/2024 5:39 PM [facility] Bilirubin Total 0.2 0.2 - 1.2 mg/dL 08/13/2024 5:39 PM [facility] eGFR by CKD-EPI 80(L) >=90 mL/min/1.7 3 m2 08/13/2024 5:39 PM [facility] Blood BLOOD SPECIMEN / Unknown Venipuncture / Unknown 08/13/2024 5:08 PM REGIONAL 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 08/13/2024 5:21 PM [facility] Alexus Ramirez MD LAB - CHEMISTRY MICHAEL MONTGOMERY [facility] [address] [place] [address] * PHOSPHORUS BLOOD (08/13/2024 5:08 PM [facility]) [facility] Signature Phosphorus 3.3 2.5 - 4.5 mg/dL 08/13/2024 5:39 PM REGIONAL 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 [facility] Blood BLOOD SPECIMEN / Unknown Venipuncture / Unknown 08/13/2024 5:08 PM REGIONAL 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 08/13/2024 5:21 PM REGIONAL 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 Alexus Ramirez MD LAB - CHEMISTRY MICHAEL MONTGOM[facility] Performing Organization Address [facility] [address]/[facility] Co de Phone Number [facility] [phone] [place] [phone] * MAGNESIUM BLOOD (08/13/2024 5:08 PM REGIONAL 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) Magnesium 2.0 1.6 - 2.6 mg/dL 08/13/2024 5:39 PM REGIONAL 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 [facility] Blood BLOOD SPECIMEN / Unknown Venipuncture / Unknown 08/13/2024 5:08 PM REGIONAL 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 08/13/2024 5:21 PM REGIONAL 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 Alexus Ramirez MD LAB - CHEMISTRY MICHAEL MONTGOM[facility] Performing Organization Address [facility] [address]/[facility] Co de Phone Number [facility] [phone] [place] [phone] * LIPASE BLOOD (08/13/2024 5:08 PM REGIONAL 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) Lipase 25 <60 U/L 08/13/2024 5:39 PM REGIONAL 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 [facility] Blood BLOOD SPECIMEN / Unknown Venipuncture / Unknown 08/13/2024 5:08 PM REGIONAL 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 08/13/2024 5:21 PM REGIONAL 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 Alexus Ramirez MD LAB - CHEMISTRY MICHAEL MONTGOMERY Performing Organization Address [facility] de Phone Number [facility] [phone] [place] [phone] * LACTIC ACID BLOOD (08/13/2024 5:08 PM REGIONAL 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) Lactic Acid 1.5 <=2.0 mmol/L 08/13/2024 5:39 PM REGIONAL 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 [facility] Blood BLOOD SPECIMEN / Unknown Venipuncture / Unknown 08/13/2024 5:08 PM REGIONAL 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 08/13/2024 5:21 PM REGIONAL 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 Alexus Ramirez MD LAB - CHEMISTRY MICHAEL MONTGOMERY Performing Organization Address [facility] [address]/[facility] Co de Phone Number [facility] [address] [place] [address] * (ABNORMAL) BLOOD GASES ARTERIAL (08/13/2024 4:16 PM REGIONAL 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) pH Arterial 7.47(H) 7.35 - 7.45 pH 08/13/2024 4:34 PM REGIONAL 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 [facility] pO2 Arterial 99 80 - 100 mmHg 08/13/2024 4:34 PM REGIONAL 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 [facility] pCO2 Arterial 39 35 - 45 mmHg 08/13/2024 4:34 PM REGIONAL MARKETING MANAGER [facility] HCO3 Arterial 28.4(H) 22.0 - 26.0 mmol/L 08/13/2024 4:34 PM REGIONAL MARKETING MANAGER [facility] BE Arterial 4.5(H) -2.0 - 2.0 mmol/L 08/13/2024 4:34 PM REGIONAL MARKETING MANAGER [facility] O2 Saturation Arterial 99 90 - 100 % 08/13/2024 4:34 PM REGIONAL MARKETING MANAGER [facility] Sample Site Right RA 08/13/2024 4:34 PM REGIONAL MARKETING MANAGER [facility] Mode APVcmv 08/13/2024 4:34 PM REGIONAL MARKETING MANAGER [facility] O2 Device VENT 08/13/2024 4:34 PM REGIONAL MARKETING MANAGER [facility] FI O2 50.0 % 08/13/2024 4:34 PM REGIONAL MARKETING MANAGER [facility] Mechanical Tidal Volume (mL) 380 08/13/2024 4:34 PM REGIONAL MARKETING MANAGER [facility] Mechanical Respiratory Rate (bpm) 22 08/13/2024 4:34 PM REGIONAL MARKETING MANAGER [facility] PEEP (cmH2O) 10 08/13/2024 4:34 PM REGIONAL MARKETING MANAGER [facility] Blood, arterial ARTERIAL BLOOD SPECIMEN / Unknown 08/13/2024 4:16 PM REGIONAL MARKETING MANAGER 08/13/2024 4:16 PM REGIONAL MARKETING MANAGER Alexus Ramirez MD LAB - BLOOD GASES OR DERABLES Performing Organization Address [facility] [address]/ZIP Co de Phone Number [facility] [address] [place] [address], [place] [phone] * XR CHEST 1VW PORTABLE (08/13/2024 4:04 PM REGIONAL MARKETING MANAGER) Anatomical Region Laterality Modality Chest Computed Radiogr aphy 08/13/2024 4:10 PM REGIONAL MARKETING MANAGER Impressions 08/13/2024 4:12 PM REGIONAL MARKETING MANAGER IMPRESSION: Multiple tubing placements as noted above. Subtle linear streak is present in the left lung. Also the diaphragm.? Atelectasis or scarring. Unfortunately, we have no previous chest imaging studies available at this time. > Interpreting Provider: Ko Olguin MD on 08/13/2024 4:12 PM Narrative 08/13/2024 4:12 PM REGIONAL MARKETING MANAGER PROCEDURE: XR CHEST 1VW PORTABLE DATE/TIME OF [...] to the level of the right atrium. monitor tech wires obscure the chest bilaterally. Heart size [...] extendingto the level of the right atrium. monitor tech wires obscure the chest bilaterally. Heart size [...] 3:54 PM 08/18/2024 6:24 PM Care Teams Solderer Dipper Relationship Specialty Start Date End Date Kishor Saleh MD [address] [place] [address] PCP - General Internal Medicine 07/31/23
--- OUTSIDE RECORDS SUMMARY | 2024-10-03 02:25 | XMS_ITS | Encounter Summary ---
Author Organization [facility] Address [address] [place] [address] Care Team Providers Care Ammonia Box Operator Name Role Phone Tiffany Cox MD Primary Care Provider Unavailable Kishor Saleh MD Primary Care Provider Encounter Details Date Type Department Care Team (Late st Contact Info) Description 07/03/2023 Lab Requisition [facility] [address] [place] [id number] [place] [address] [facility] [address] [address] [place] [id number] Social History Tobacco Use Types Packs/Day [...] Investigation 08/13/2024 08/13/2024 08/13/2024 11:30 PM MANAGER ANIMATION documented as of this encounter Care Teams Ammonia Box Operator Relationship Specialty Start Date End Date Tiffany Cox MD PCP - General Internal Medicine 05/16/13 07/30/23 Kishor Saleh MD [address] [place] [address] [address] [address] [place] [address] PCP - General Internal Medicine 07/31/23 documented as of this encounter
--- OUTSIDE RECORDS SUMMARY | 2024-10-03 02:25 | XMS_ITS | Encounter Summary ---
Author Organization [facility] Address [address] [place] [address] Phone Care Team Providers Care Modeling And Simulation Analyst Name Role Phone Kishor Saleh MD Primary Care Provider [phone] Ann Serrano MD Unavailable [phone] No, Physician Primary Care Provider [phone] Kishor Saleh MD Primary Care Provider [phone] Lynn Rodriguez MD Primary Care Provider Encounter Details Date Type Department Care Team (Late st Contact Info) Description 09/30/2017 Orders Only [facility] ProviderStephenie MD [address] [place] [address] Social History Tobacco Use Types Packs/Day Years Used Date Smoking Tobacco: Never Smokeless Tobacco: Never Alcohol Use Standard Drinks/Week Comments No 0 (1 standard drink = 0.6 oz pur e alcohol) Comments Unknown Sex and Gender Information Value Date Recorded Sex Assigned at Not on file Legal Sex Female 11:54 PM TREASURY CONSULTANT Gender Identity Female 09/19/2020 8:37 AM TREASURY CONSULTANT Sexual Orientation Straight 09/19/2020 8: 37 AM TREASURY CONSULTANT documented as of this encounter Plan of Treatment Not on file documented as of this encounter Procedures Procedure Name Priority Date/Time Associated Diagnosis Comments DISCHARGE LABORATORY CUMULATIVE REPORT 09/30/2017 12:00 AM TREASURY CONSULTANT documented in this encounter Results * DISCHARGE LABORATORY CUMULATIVE REPORT (09/30/2017 12:00 AM TREASURY CONSULTANT) Narrative 09/30/2017 12:00 AM TREASURY CONSULTANT Ordered by an unspecified provider. us Historical Provider LAB BLOOD ORDERABLES Flora l Result documented in this encounter Visit Diagnoses Not on filedocumented in this encounter Additional Health Concerns Infection Onset Date Last Indicated Resolved Time COVID: Suspected 08/13/2022 08/13/2022 08/13/2022 1:16 PM TREASURY CONSULTANT documented as of this encounter Care Teams Modeling And Simulation Analyst Relationship Specialty Start Date End Date Kishor Saleh MD PCP - General 09/28/08 11/16/23 No, Physician PCP - General 11/17/23 12/28/23 Kishor Saleh MD [address] [facility] [facility], [place] [address] PCP - General Internal Medicine 12/29/23 04/05/24 [place] [address] [facility] [address], [place] [address] PCP - General Internal Medicine 04/06/24 Ann Serrano MD Referring Physician Endocrinology Diabetes & Metabolism 06/08/20 documented as of this encounter
--- OUTSIDE RECORDS SUMMARY | 2024-10-03 02:25 | XMS_ITS | Patient Health Summary ---
Author Organization [facility] [employer] Address [address] [place] [address] Care Team Providers Care Shoe Stock Associate Name Role Phone Kishor Saleh MD Primary Care Provider + [phone] Note from [facility],non-owned Affiliates and Associated Physician Practices is amultiple site organization consisting of ambulatory clinics and hospital sitesin [place], [place], [place] and [place]. This disclosure is being madepursuant to the Care Everywhere program and may not contain all information available regarding this patient. Last updated 18.[facility] Allergies * Amlodipine Base(Nausea and/or Vomiting) * [...] fluticasone propionate (Flonase) 50 MCG/ACT nasal spray [place] 2 (two) sprays into each nostril once [...] * vitamin D, ergocalciferol, (Drisdol) 1.25 MG (60718 UT) capsule Take 1 (one) capsule by [...] in the past 12 m [facility], were you homeless or living in a chcf (including now)? No 08/15/2024 Sex and Gender Information Value Date Recorded Sex Assigned at Not on file Gender Identity Not on file Sexual Orientation Not on file Last Filed Vital Signs Vital Sign Reading Time Taken Comments Blood Pressure 154/92 08/18/2024 12:25 PM TERMINAL MAKE UP OPERATOR Pulse 102 08/18/2024 12:25 PM TERMINAL MAKE UP OPERATOR Temperature 36.7 C (98.1 F) 08/18/2024 12:25 PM TERMINAL MAKE UP OPERATOR Respiratory Rate 23 08/18/2024 12:2 5 PM TERMINAL MAKE UP OPERATOR Oxygen Saturation 90% 08/18/2024 12: 25 PM TERMINAL MAKE UP OPERATOR Inhaled Oxygen Concentration 21% 08/18/2024 2 :00 PM TERMINAL MAKE UP OPERATOR Weight 132.6 kg (292 lb 4.8 oz) 08/18/2024 4:00 AM TERMINAL MAKE UP OPERATOR Height 167.6 cm (5' 6 ) 08/13/2024 5:14 PM TERMINAL MAKE UP OPERATOR Body Mass Index 47.18 08/13/2024 5:14 PM TERMINAL MAKE UP OPERATOR Procedures * CARDIAC RHYTHM STRIP ORDER(Performed 08/23/2024) [...] CARDIAC RHYTHM STRIP ORDER (08/23/2024 2:41 AM TERMINAL MAKE UP OPERATOR) Narrative 08/23/2024 2:41 AM TERMINAL MAKE UP OPERATOR Ordered by an unspecified provider. Scanned Document CARDIAC SERVICES ORD ERABLES * GLUCOSE - POINT OF CARE (08/18/2024 7:46 AM TERMINAL MAKE UP OPERATOR) Only the most recent of28 resultswithin the time period is included. [facility] Glucose WB/POC 81 70 - 99 mg/dL 08/18/2024 7:51 AM TERMINAL MAKE UP OPERATOR [facility] Specimen Type Cap Fingerstick 2024 7:51 AM TERMINAL MAKE UP OPERATOR [facility] Blood BLOOD SPECIMEN / Unknown 08/18/2024 7:46 AM TERMINAL MAKE UP OPERATOR 08/18/2024 7:51 AM TERMINAL MAKE UP OPERATOR Young Mcwilliams MD LAB - POINT OF CARE ORDERABLES [facility] [address] [place] [address] * (ABNORMAL) CBC W/O DIFFERENTIAL (08/17/2024 4:16 AM TERMINAL MAKE UP OPERATOR) Only the most recent of4 resultswithin the time period is included. Pathologist [facility] WBC 16.3(H) 4.0 - 10.7 x10E9/L 08/17/2024 4:44 AM TERMINAL MAKE UP OPERATOR [facility] RBC Count 3.51(L) 3.90 - 5.20 x10E12/L 08/17/2024 4:44 AM TERMINAL MAKE UP OPERATOR [facility] Hemoglobin 10.3(L) 11.9 - 15.8 [...] Unknown Venipuncture / Unknown 08/17/2024 4:16 AM TERMINAL MAKE UP OPERATOR 08/17/2024 4:30 AM [facility] Alexus Ramirez MD LAB - HEMATOLOGY ORD ERABLES [facility] [address] [place] [address] * (ABNORMAL) BASIC METABOLIC PANEL (CALCIUM TOTAL) (08/17/2024 4:16 AM [facility]) Only the most recent of4 resultswithin [...] Unknown Venipuncture / Unknown 08/17/2024 4:16 AM TERMINAL MAKE UP OPERATOR 08/17/2024 4:30 AM TERMINAL MAKE UP OPERATOR Alexus Ramirez MD LAB - CHEMISTRY MICHAEL MONTGOMERY Performing Organization Address [facility] de Phone Number [facility] [address] [place] [address] * (ABNORMAL) VANCOMYCIN LEVEL TROUGH (08/16/2024 6:35 PM TERMINAL MAKE UP OPERATOR) [facility] Vancomycin Trough 6.1(L) 10.0 - 20.0 ug/mL 08/16/2024 7:22 PM TERMINAL MAKE UP OPERATOR [facility] Blood BLOOD SPECIMEN / Unknown Venipuncture / Unknown 08/16/2024 6:35 PM TERMINAL MAKE UP OPERATOR 08/16/2024 7:02 PM TERMINAL MAKE UP OPERATOR Anatoliy Wyman MD LAB - CHEMISTRY MICHAEL [facility] Performing Organization Address [facility] de Phone Number [facility] [address] [place] [address] * CULTURE BLOOD (08/15/2024 8:54 AM TERMINAL MAKE UP OPERATOR) Only the most recent of4 resultswithin the time period is included. [facility] Culture No growth day 5 LORENZO 08/20/2024 1:31 PM TERMINAL MAKE UP OPERATOR [facility] Blood PERIPHERAL BLOOD / Unknown Venipuncture / Unknown 08/15/2024 8:54 AM TERMINAL MAKE UP OPERATOR 08/15/2024 9:13 AM TERMINAL MAKE UP OPERATOR Amadeo Milner MD LAB - MICROBIOLOGY O RDERABLES [facility] [address] [place] [address], [facility] [phone] * (ABNORMAL) HEMOGLOBIN A1C (08/14/2024 3:27 AM TERMINAL MAKE UP OPERATOR) Hemoglobin A1c 10.1(H) <5.7 % 08/14/2024 3:48 AM TERMINAL MAKE UP OPERATOR [facility] Estimated Average Glucose 243 mg/dL 08/14/2024 3:48 AM TERMINAL MAKE UP OPERATOR [facility] Blood BLOOD SPECIMEN / Unknown Venipuncture / Unknown 08/14/2024 3:27 AM TERMINAL MAKE UP OPERATOR 08/14/2024 3:37 AM TERMINAL MAKE UP OPERATOR [facility] - 08/14/2024 3:48 AM TERMINAL MAKE UP OPERATOR HbA1c Interpretation: Normal: < 5.7% Pre-diabetes: 5.7-6.4% [...] Ramirez MD LAB - CHEMISTRY MICHAEL [facility]TG[facility] [address] [place] [address] * STREP PNEUMONIAE ANTIGEN URINE (08/13/2024 5:17 PM TERMINAL MAKE UP OPERATOR) Streptococcus pneumoniae Antigen Urine Negative Negative 08/14/2024 8:17 AM TERMINAL MAKE UP OPERATOR [facility] Urine URINE / Unknown Collection / Unknown 08/13/2024 5:17 PM TERMINAL MAKE UP OPERATOR 08/13/2024 5:22 PM TERMINAL MAKE UP OPERATOR Narrative [facility] - 08/14/2024 8:17 AM TERMINAL MAKE UP OPERATOR Patients who have received the Streptococcus pneumoniae [...] - MICROBIOLOGY Blayne BABCOCK Performing Organization Address [facility] Co de Phone Number [facility] [address] [place] [address], [facility] [phone] * LEGIONELLA ANTIGEN URINE (08/13/2024 5:17 PM TERMINAL MAKE UP OPERATOR) Pathologist [facility] Legionella Antigen Urine Negative Negative 08/14/2024 8:21 AM TERMINAL MAKE UP OPERATOR [facility] Urine URINE / Unknown Collection / Unknown 08/13/2024 5:17 PM TERMINAL MAKE UP OPERATOR 08/13/2024 5:22 PM TERMINAL MAKE UP OPERATOR [facility] MICROBIOLOGY - 08/14/2024 8:21 AM TERMINAL MAKE UP OPERATOR This assay detects Legionella pneumophila serogroup one (1) antigen. A negative test result does not rule out the possibility of Legionella infection due to other serogroups or species of Legionella. A positive result may indicate a recent or remote infection with serogroup 1. Alexus Ramirez MD LAB - MICROBIOLOGY [place] Performing Organization Address City/[facility]/ZIP Co de Phone Number [facility] [address] [place] [address], [facility] [phone] * (ABNORMAL) RESPIRATORY PANEL WITH SARS-COV-2 BY PCR (STL) (08/13/2024 5:09 PM TERMINAL MAKE UP OPERATOR) Adenovirus PCR Not detected Not detected 08/13/2024 11:30 PM TERMINAL MAKE UP OPERATOR [facility] Coronavirus 229E PCR Not detected Not detected 08/13/2024 11:30 PM TERMINAL MAKE UP OPERATOR [facility] Coronavirus HKU1 PCR Not detected Not detected 08/13/2024 11:30 PM TERMINAL MAKE UP OPERATOR [facility] Coronavirus NL63 PCR Not detected Not detected 08/13/2024 11:30 PM TERMINAL MAKE UP OPERATOR [facility] Coronavirus OC43 PCR Not detected Not detected 08/13/2024 11:30 PM TERMINAL MAKE UP OPERATOR [facility] COVID-19 PCR Not detected Not detected 08/13/2024 11:30 PM TERMINAL MAKE UP OPERATOR [facility] Human Metapneumovirus PCR Not detected Not detected 08/13/2024 11:30 PM TERMINAL MAKE UP OPERATOR [facility] Human Rhinovirus/Enterov irus PCR Not detected Not detected 08/13/2024 11:30 PM TERMINAL MAKE UP OPERATOR [facility] Influenza A PCR Not detected Not detected 08/13/2024 11:30 PM TERMINAL MAKE UP OPERATOR [facility] Influenza B PCR Not detected Not detected 08/13/2024 11:30 PM TERMINAL MAKE UP OPERATOR [facility] Parainfluenza Virus 1 PCR Not detected Not detected 08/13/2024 11:30 PM TERMINAL MAKE UP OPERATOR [facility] Parainfluenza Virus 2 PCR Not detected Not detected 08/13/2024 11:30 PM TERMINAL MAKE UP OPERATOR [facility] Parainfluenza Virus 3 PCR Not detected Not detected 08/13/2024 11:30 PM TERMINAL MAKE UP OPERATOR [facility] Parainfluenza Virus 4 PCR Not detected Not detected 08/13/2024 11:30 PM TERMINAL MAKE UP OPERATOR [facility] Respiratory Syncytial Virus PCR Detected(A) Not detected 08/13/2024 11:30 PM TERMINAL MAKE UP OPERATOR [facility] Bordetella parapertussis PCR Not detected Not detected 08/13/2024 11:30 PM TERMINAL MAKE UP OPERATOR [facility] Bordetella pertussis PCR Not detected Not detected 08/13/2024 11:30 PM TERMINAL MAKE UP OPERATOR [facility] Chlamydia pneumoniae PCR Not detected Not detected 08/13/2024 11:30 PM TERMINAL MAKE UP OPERATOR [facility] Mycoplasma pneumoniae PCR Not detected Not detected 08/13/2024 11:30 PM TERMINAL MAKE UP OPERATOR [facility] Microbiology SPECIMEN FROM NASOPHARYNGEAL STRUCTURE / Unknown Collection / Unknown 08/13/2024 5:09 PM TERMINAL MAKE UP OPERATOR 08/13/2024 5:20 PM TERMINAL MAKE UP OPERATOR Narrative [facility] - 08/13/2024 11:30 PM TERMINAL MAKE UP OPERATOR Contact and Droplet Precautions Required. This nucleic amplification assay has received FDA authorization via the [place] Pathway. Alexus Ramirez MD LAB - MICROBIOLOGY [place] Performing Organization Address [facility]/ZIP Co de Phone Number [facility] [address] [place] [address], [facility] [phone] * CULTURE MRSA (08/13/2024 5:09 PM TERMINAL MAKE UP OPERATOR) Culture Negative for methicillin-resist ant Staphylococcus aureus (MRSA) LORENZO 08/15/2024 8:16 AM TERMINAL MAKE UP OPERATOR [facility] Microbiology SPECIMEN FROM NASAL FOSSAE / Unknown Collection / Unknown 08/13/2024 5:09 PM TERMINAL MAKE UP OPERATOR 08/13/2024 5:21 PM TERMINAL MAKE UP OPERATOR Alexus Ramirez MD LAB - MICROBIOLOGY [place] Performing Organization Address [facility] de Phone Number [facility] [address] [place] [address], [facility] [phone] * (ABNORMAL) BCID PANEL (08/13/2024 5:08 PM TERMINAL MAKE UP OPERATOR) Staphylococcus epidermidis Detected (A) Not detected 08/15/2024 2:03 AM TERMINAL MAKE UP OPERATOR [facility] MECA/C (Methicillin-Resi stance Gene) Detected (A) Not detected 08/15/2024 2:03 AM TERMINAL MAKE UP OPERATOR [facility] Comment:Results indicate met hicillin-resistant Staphylococcus epidermidis. Methicillin-resistance detected. Blood PERIPHERAL BLOOD / Unknown Venipuncture / Unknown 08/13/2024 5:08 PM TERMINAL MAKE UP OPERATOR 08/13/2024 5:19 PM TERMINAL MAKE UP OPERATOR Narrative [facility] - 08/15/2024 2:03 AM TERMINAL MAKE UP OPERATOR Blood Culture ID Panel performed by [employer] [...] and MREJ (methicillin-resistance - MRSA), NDM ([place] yyvstnz-fmwl-wjyksnmlg), OXA-48-like (oxacillinase beta-lactamase),Ashly/B (vancomycin-resistance), VIM ([place] Intergrom-Encoded [place] beta-lactamase). Alexus Ramirez MD LAB - MICROBIOLOGY O RDERABLES [facility] [address] [place] [address], [facility] [phone] * PTT (08/13/2024 5:08 PM TERMINAL MAKE UP OPERATOR) PTT 28.4 23.0 - 38.4 sec 08/13/2024 5:43 PM TERMINAL MAKE UP OPERATOR [facility] Blood BLOOD SPECIMEN / Unknown Venipuncture / Unknown 08/13/2024 5:08 PM TERMINAL MAKE UP OPERATOR 08/13/2024 5:21 PM TERMINAL MAKE UP OPERATOR Narrative [facility] - 08/13/2024 5:43 PM TERMINAL MAKE UP OPERATOR Heparin Therapeutic Range for PTT: 69.0 - 110.0 seconds. Alexus Ramirez MD LAB - COAGULATION OR DERABLES Performing Organization Address [facility] de Phone Number [facility] [address] [place] [address] * PT-INR (08/13/2024 5:08 PM TERMINAL MAKE UP OPERATOR) [facility] PT 14.1 12.1 - 14.8 sec 08/13/2024 5:43 PM TERMINAL MAKE UP OPERATOR [facility] INR 1.1 0.9 - 1.1 08/13/2024 5:43 PM TERMINAL MAKE UP OPERATOR [facility] Blood BLOOD SPECIMEN / Unknown Venipuncture / Unknown 08/13/2024 5:08 PM TERMINAL MAKE UP OPERATOR 08/13/2024 5:21 PM TERMINAL MAKE UP OPERATOR Narrative [facility] - 08/13/2024 5:43 PM TERMINAL MAKE UP OPERATOR Conventional Warfarin Anticoagulant Therapy: INR Reference Range: 2.0-3.0 Intensive Warfarin Anticoagulant Therapy: INR Reference Range: 2.5-3.5 Alexus Ramirez MD LAB - COAGULATION OR DERABLES Performing Organization Address [facility] de Phone Number [facility] [address] [place] [phone] * (ABNORMAL) DIFFERENTIAL MANUAL (08/13/2024 5:08 PM TERMINAL MAKE UP OPERATOR) [facility] Neutrophil % 90(H) 41 - 74 [...] % 3(H) 0% % 08/13/2024 6:34 PM TERMINAL MAKE UP OPERATOR [facility] Promyelocyte % 1(H) 0% % 08/13/2024 6:34 PM [facility] Neutrophil Absolute 17.91(H) 1.60 - 7.50 x10E9/L 08/13/2024 6:34 PM TERMINAL MAKE UP OPERATOR [facility] Lymphocyte Absolute 0.80(L) 1.00 - 4.40 x10E9/L 08/13/2024 6:34 PM TERMINAL MAKE UP OPERATOR [facility] Monocyte Absolute 0.20 0.15 - 1.00 x10E9/L 08/13/2024 6:34 PM [facility] Basophil Absolute 0.20(H) 0.00 - 0.13 x10E9/L 08/13/2024 6:34 PM [facility] RBC Morphology REVIEWED 08/13/2024 6:34 PM [facility] Blood BLOOD SPECIMEN / Unknown Venipuncture / Unknown 08/13/2024 5:08 PM TERMINAL MAKE UP OPERATOR 08/13/2024 5:21 PM TERMINAL MAKE UP OPERATOR Alexus Ramirez MD LAB - HEMATOLOGY ORD ERABLES [facility] [address] [place] [address] * (ABNORMAL) CBC W AUTO DIFFERENTIAL (08/13/2024 5:08 PM TERMINAL MAKE UP OPERATOR) WBC 19.9(H) 4.0 - 10.7 x10E9/L 08/13/2024 [...] 7.8 - 11.4 fL 08/13/2024 6:34 PM TERMINAL MAKE UP OPERATOR [facility] Blood BLOOD SPECIMEN / Unknown Venipuncture / Unknown 08/13/2024 5:08 PM TERMINAL MAKE UP OPERATOR 08/13/2024 5:21 PM TERMINAL MAKE UP OPERATOR Alexus Ramirez MD LAB - HEMATOLOGY ORD ERABLES Performing Organization Address [facility] Co de Phone Number [facility] [id number] [place] [phone] * B-TYPE NATRIURETIC PEPTIDE (08/13/2024 5:08 PM TERMINAL MAKE UP OPERATOR) BNP 43 <=100 pg/mL 08/13/2024 5:45 PM [facility] Blood BLOOD SPECIMEN / Unknown Venipuncture / Unknown 08/13/2024 5:08 PM TERMINAL MAKE UP OPERATOR 08/13/2024 5:21 PM TERMINAL MAKE UP OPERATOR Alexus Ramirez MD LAB - CHEMISTRY ORDE RABLES Performing Organization Address [facility] Co de Phone Number [facility] [phone] [place] [phone] * (ABNORMAL) COMPREHENSIVE METABOLIC PANEL (08/13/2024 5:08 PM TERMINAL MAKE UP OPERATOR) Glucose 396(H) 70 - 99 mg/dL 08/13/2024 [...] 5.3 - 18.7 mg/dL 08/13/2024 5:39 PM TERMINAL MAKE UP OPERATOR [facility] Creatinine 0.89 0.57 - 1.11 mg/dL 08/13/2024 5:39 PM TERMINAL MAKE UP OPERATOR [facility] Alkaline Phosphatase 111 40 - 150 U/L 08/13/2024 5:39 PM TERMINAL MAKE UP OPERATOR [facility] ALT 40 0 - 55 U/L 08/13/2024 5:39 PM TERMINAL MAKE UP OPERATOR [facility] AST 15 5 - 34 U/L 08/13/2024 5:39 PM TERMINAL MAKE UP OPERATOR [facility] Protein Total 6.8 6.4 - 8.3 gm/dL 08/13/2024 5:39 PM TERMINAL MAKE UP OPERATOR [facility] Albumin 2.6(L) 3.4 - 5.0 gm/dL 08/13/2024 5:39 PM TERMINAL MAKE UP OPERATOR [facility] Bilirubin Total 0.2 0.2 - 1.2 mg/dL 08/13/2024 5:39 PM [facility] eGFR by CKD-EPI 80(L) >=90 mL/min/1.7 3 m2 08/13/2024 5:39 PM TERMINAL MAKE UP OPERATOR [facility] Blood BLOOD SPECIMEN / Unknown Venipuncture / Unknown 08/13/2024 5:08 PM TERMINAL MAKE UP OPERATOR 08/13/2024 5:21 PM TERMINAL MAKE UP OPERATOR Alexus Ramirez MD LAB - CHEMISTRY MICHAEL MONTGOMERY Performing Organization Address City/[facility]/ZIP Co de Phone Number [facility] [address] [place], [place] [phone] * PHOSPHORUS BLOOD (08/13/2024 5:08 PM TERMINAL MAKE UP OPERATOR) Phosphorus 3.3 2.5 - 4.5 mg/dL 08/13/2024 5:39 PM TERMINAL MAKE UP OPERATOR [facility] Blood BLOOD SPECIMEN / Unknown Venipuncture / Unknown 08/13/2024 5:08 PM TERMINAL MAKE UP OPERATOR 08/13/2024 5:21 PM TERMINAL MAKE UP OPERATOR Alexus Ramirez MD LAB - CHEMISTRY MICHAEL MONTGOMERY Performing Organization Address City/[facility]/ZIP Co de Phone Number [facility] [address] [place], [place] [id number] * MAGNESIUM BLOOD (08/13/2024 5:08 PM TERMINAL MAKE UP OPERATOR) Magnesium 2.0 1.6 - 2.6 mg/dL 08/13/2024 5:39 PM TERMINAL MAKE UP OPERATOR [facility] Blood BLOOD SPECIMEN / Unknown Venipuncture / Unknown 08/13/2024 5:08 PM TERMINAL MAKE UP OPERATOR 08/13/2024 5:21 PM TERMINAL MAKE UP OPERATOR Alexus Ramirez MD LAB - CHEMISTRY MICHAEL MONTGOMERY Performing Organization Address [facility] Co de Phone Number [facility] [address] [place] [address] * LIPASE BLOOD (08/13/2024 5:08 PM TERMINAL MAKE UP OPERATOR) Lipase 25 <60 U/L 08/13/2024 5:39 PM TERMINAL MAKE UP OPERATOR [facility] Blood BLOOD SPECIMEN / Unknown Venipuncture / Unknown 08/13/2024 5:08 PM TERMINAL MAKE UP OPERATOR 08/13/2024 5:21 PM TERMINAL MAKE UP OPERATOR Alexus Ramirez MD LAB - CHEMISTRY MICHAEL MONTGOMERY Performing Organization Address [facility] de Phone Number [facility] [address] [place] [address] * LACTIC ACID BLOOD (08/13/2024 5:08 PM TERMINAL MAKE UP OPERATOR) Lactic Acid 1.5 <=2.0 mmol/L 08/13/2024 5:39 PM TERMINAL MAKE UP OPERATOR [facility] Blood BLOOD SPECIMEN / Unknown Venipuncture / Unknown 08/13/2024 5:08 PM TERMINAL MAKE UP OPERATOR 08/13/2024 5:21 PM TERMINAL MAKE UP OPERATOR Alexus Ramirez MD LAB - CHEMISTRY MICHAEL MONTGOMERY Performing Organization Address [facility] de Phone Number [facility] [address] [place] [phone] * (ABNORMAL) BLOOD GASES ARTERIAL (08/13/2024 4:16 PM TERMINAL MAKE UP OPERATOR) pH Arterial 7.47(H) 7.35 - 7.45 pH 08/13/2024 4:34 PM TERMINAL MAKE UP OPERATOR [facility] pO2 Arterial 99 80 - 100 mmHg 08/13/2024 4:34 PM TERMINAL MAKE UP OPERATOR [facility] pCO2 Arterial 39 35 - 45 mmHg 08/13/2024 4:34 PM TERMINAL MAKE UP OPERATOR [facility] HCO3 Arterial 28.4(H) 22.0 - 26.0 mmol/L 08/13/2024 4:34 PM TERMINAL MAKE UP OPERATOR [facility] BE Arterial 4.5(H) -2.0 - 2.0 mmol/L 08/13/2024 4:34 PM TERMINAL MAKE UP OPERATOR [facility] O2 Saturation Arterial 99 90 - 100 % 08/13/2024 4:34 PM TERMINAL MAKE UP OPERATOR [facility] Sample Site Right RA 08/13/2024 4:34 PM TERMINAL MAKE UP OPERATOR [facility] Mode APVcmv 08/13/2024 4:34 PM TERMINAL MAKE UP OPERATOR [facility] O2 Device VENT 08/13/2024 4:34 PM TERMINAL MAKE UP OPERATOR [facility] FI O2 50.0 % 08/13/2024 4:34 PM TERMINAL MAKE UP OPERATOR [facility] Mechanical Tidal Volume (mL) 380 08/13/2024 4:34 PM TERMINAL MAKE UP OPERATOR [facility] Mechanical Respiratory Rate (bpm) 22 08/13/2024 4:34 PM TERMINAL MAKE UP OPERATOR [facility] PEEP (cmH2O) 10 08/13/2024 4:34 PM TERMINAL MAKE UP OPERATOR [facility] Blood, arterial ARTERIAL BLOOD SPECIMEN / Unknown 08/13/2024 4:16 PM TERMINAL MAKE UP OPERATOR 08/13/2024 4:16 PM TERMINAL MAKE UP OPERATOR Alexus Ramirez MD LAB - BLOOD GASES OR DERABLES [facility] [address] [phone] * XR CHEST 1VW PORTABLE (08/13/2024 4:04 PM TERMINAL MAKE UP OPERATOR) Anatomical Region Laterality Modality Chest Computed Radiogr aphy 08/13/2024 4:10 PM TERMINAL MAKE UP OPERATOR Impressions 08/13/2024 4:12 PM TERMINAL MAKE UP OPERATOR IMPRESSION: Multiple tubing placements as noted above. Subtle linear streak is present in the left lung. Also the diaphragm.? Atelectasis or scarring. Unfortunately, we have no previous chest imaging studies available at this time. > Interpreting Provider: Ko Olguin MD on 08/13/2024 4:12 PM Narrative 08/13/2024 4:12 PM TERMINAL MAKE UP OPERATOR PROCEDURE: XR CHEST 1VW PORTABLE DATE/TIME OF [...] to the level of the right atrium. monitoring analyst wires obscure the chest bilaterally. Heart size [...] an estimated 5.2 cm superior to the sherire.An NG tube is present but the tip is off the lower edge of the image in the abdomen. A right jugular central line is present with the tip extendingto the level of the right atrium. monitoring analyst wires obscure the chest bilaterally. Heart size [...] * IMMUNOFLUORESCENT STUDY DERM (07/01/2023 3:33 AM TERMINAL MAKE UP OPERATOR) Case Report Dermatopathol ogmarcell Report Case: [id number] Authorizing Provider: Kenrdick Christopher MD Collected: 07/01/2023 03:33 AM Ordering Location: [facility] Received: 07/03/2023 12:13 PM Pathologist: Bella Schwab MD Specimen: Skin, right superior han 3:46 PM TERMINAL MAKE UP OPERATOR [facility]ERMATOPATHOLOGY LABORATORY Final Diagnosis Specimen A. SKIN, right superior han: COLLOID BODIES (L98.9) (see microscopic description) (see fixed tissue results) 3:46 PM [facility] Direct Immunofluorescence Report - Specimen A Specimen A IgA IgM IgG C3 CollV Fibrinogen Epidermis Negative Negative Negative Negative Negative Negative Basement Membrane Negative Negative Negative Negative 2+ Negative Vessels Negative Negative Negative Negative 2+ Negative Interstitium Colloid Colloid Colloid Negative Negative Non specific 3:46 PM TERMINAL MAKE UP OPERATOR DERMATOPATHOLOGY LABORATORY Clinical History Rash; R/O Leukocytoclas tic Vasculitis, [place] Reticularis 3:46 PM [facility] LABORATORY Gross Description Specimen A: Received is one Jatinder's media filled container labeled with the patient's name and designated right superior han. The specimen consists of a punch biopsy measuring 5x4x4 mm. The specimen is submitted in whole for direct immunofluores cence testing. 3:46 PM [facility] DERMAT[facility]ORATORY Microscopic Description Specimen A. [...] rubbing. See fixed tissue results. 3:46 PM [facility] Disclaimer An external and internal positive and negative controls are appropriate for the histochemical , immunohistoch emical and immunofluores cence stain(s) in this case (if any), except where stated explicitly. The performance characteristi cs of the stain(s) cited in this report were developed and its performance characteristi c determined by the Dermatopathol ogy Laboratory at [facility], directed by Dr. Arnol Perea. These tests need not be, and therefore are not, approved by the [place] Food and Drug Administratio n. The tests are used for clinical purposes. Billing Codes Specimen Charges Stain Charges 97442 19968 95055 23191 22730 55992 1 1 1 1 1 1 3 3:46 PM [facility] [employer] [facility]PERATOR DERMATOPATHOLOGY LABORATORY Embedded Images 3:46 PM TERMINAL MAKE UP OPERATOR DERMATOPATHOLOGY LABORATORY Pathology/Cytolo gy TISSUE SPECIMEN FROM SKIN / Unknown 07/01/2023 3:33 AM TERMINAL MAKE UP OPERATOR 07/03/2023 12:13 PM TERMINAL MAKE UP OPERATOR Kendrick Christopher MD LAB - PATHOLOGY/CY TOLOGY ORDERABLES DERMATOPATHOLOGY LABORATORY [facility] - Department of Dermatology [facility] Medicine [address] [place] [address], [address] [phone] * DERMATOPATHOLOGY (07/01/2023 3:33 AM TERMINAL MAKE UP OPERATOR) Case Report Dermatopathology Report Case: [id number] Authorizing Provider: Kendrick Christopher MD Collected: 07/01/2023 03:33 AM Ordering Location: [facility] DermPath Lab Received: 07/03/2023 12:12 PM Pathologist: Bella Schwab MD Specimen: Skin, right inferior knee 3:45 PM TERMINAL MAKE UP OPERATOR DERMATOPATHOLOGY LABORATORY Final Diagnosis Specimen A. SKIN, right inferior knee: STASIS DERMATITIS (L30.8) DERMAL FIBROSIS (L90.5) (see microscopic description) 3:45 PM TERMINAL MAKE UP OPERATOR DERMATOPATHOLOGY LABORATORY Clinical History Rash; R/O Leukocytoclastic Vasculitis, Livedo Reticularis 3 3:45 PM TERMINAL MAKE UP OPERATOR DERMATOPATHOLOGY LABORATORY Gross Description Specimen A: Received is one formalin filled container labeled with the patient's name and designated right inferior knee. The specimen consists of a punch biopsy measuring 6x5x6 mm. Jar 0. 3 3:45 PM [facility] Microscopic Description Specimen A. [...] were obtained and reviewed. 3 3:45 PM [facility] Disclaimer An external and internal positive and negative controls are appropriate for the histochemical, immunohistochemical and immunofluorescence stain(s) in this case (if any), except where stated explicitly. The performance characteristics of the stain(s) cited in this report were developed and its performance characteristic determined by the Dermatopathology Laboratory at [facility], directed by Dr. Arnol Perea. These tests need not be, and therefore are not, approved by the [place] Food and Drug Administration. The tests are used for clinical purposes. Billing Codes Specimen Charges Stain Charges 47965 1 62528 1 3 3:45 PM [facility] Embedded Images 3 3:45 PM [facility] Pathology/Cytolo gy TISSUE SPECIMEN FROM SKIN / Unknown 07/01/2023 3:33 AM TERMINAL MAKE UP OPERATOR 07/03/2023 12:12 PM TERMINAL MAKE UP OPERATOR Kendrick Christopher MD LAB - PATHOLOGY/CY TOLOGY ORDERABLES DERMATOPATHOLOGY LABORATORY [facility] - Department of Dermatology [facility] [address] [place] [address], [address] [phone] Care Teams Shoe Stock Associate Relationship Specialty Start Date End Date Kishor Saleh MD [address] [place] [address] DR SUTHERLAND [address] [place] [address] PCP - General Internal Medicine 07/31/23
--- NOTE | 2024-10-03 02:32 | ECG_ITS ---
Test Date: 2024-10-03 02:44:48 Measurements Intervals [place] Rate: 127 P: 51 [place]: 129 QRS: -4 QRSD: 85 T: 88 QT: 308 QTc: 448 Interpretive Statements SINUS TACHYCARDIA LEFT VENTRICULAR HYPERTROPHY WITH ST-T CHANGE Compared to ECG 09/22/2024 21:17:33 NO SIGNIFICANT CHANGES Electronically Signed On 10-04-2024 15:46:04 ANESTHESIA RESIDENT by Gayle Zamarripa M.D.
[2024-10-03 02:46] LABS: Basophils Percent Auto 0.3 % (0.2-1.2); Eosinophils Percent Auto 0.5 % (0-4.4); Hematocrit 41.8 % (37.0-47.0); Hemoglobin 13.4 g/dL (12.0-15.0); Immature Granulocyte Absolute 0.05 K/mm3 (0.00-0.031); Immature Granulocyte Percent A 0.6 % (0-0.5); Lymphocytes Absolute Auto 1.43 K/mm3 (0.9-3.2); Lymphocytes Percent Auto 16.5 % (18.3-44.2); Mean Corpuscular HGB Conc 32.1 g/dl (32-36); Mean Corpuscular Hemoglobin 28.8 pg (26-34); Mean Corpuscular Volume 89.9 fl (80-100); Mean Platelet Volume 9.8 fl (7.4-10.4); Monocytes Absolute Auto 0.5 K/mm3 (0.1-0.6); Monocytes Percent Auto 6.1 % (2.6-8.5); Neutrophils Absolute Auto 6.6 K/mm3 (1.3-6.7); Platelet Count Result 357 k/mm3 (150-375); Red Blood Count 4.65 M/mm3 (4.2-5.4); Red Cell Distribution Width 15.8 % (11.5-14.5); White Blood Count 8.7 K/mm3 (4.5-10.0)
[2024-10-03 03:09] LABS: Alanine Aminotransferase 74 U/L (6-35); Albumin Level 4.1 g/dL (3.5-5.1); Alkaline Phosphatase 77 U/L (38-126); Anion Gap 11 mmol/L (4-12); Aspartate Amino Transferase 34 U/L (14-36); Bilirubin,Total 1.1 mg/dL (0.2-1.3); Blood Urea Nitrogen 8 mg/dL (7-17); Calcium 9.6 mg/dL (8.4-10.2); Carbon Dioxide 28 mmol/L (22-30); Chloride 94 mmol/L (98-107); Estimated CRCL calculation 163 ml/min; Estimated Glomerular Filt Rate > 60; Glucose 251 mg/dL (65-110); Potassium 4.1 mmol/L (3.4-5.0); Sodium 133 mmol/L (137-145)
[2024-10-03 03:23] LABS: Influenza A QL RT-PCR Positive (Negative); Influenza B QL RT-PCR Negative (Negative); RSV RNA, RT-PCR Negative (Negative); SARS-CoV-2 RNA PCR Negative (Negative)
--- OUTSIDE RECORDS SUMMARY | 2024-10-03 04:20 | XMS_ITS | Continuity of Care Document ---
Author Organization [facility] Address [address] [place] [address] Phone Care Team Providers Care Ambulatory Care Nurse Name Role Phone Tiffany Cox MD [...] route every day 10.8 MG - Active Flexeril 5 mg tablet take 1 tablet by or al route 3 times every day - Active Tylenol-Codeine #3 300 mg-30 mg tablet take 1 by Oral route every 4 - 6 hours as needed for pain 1 - Active Lovaza 1 gram capsule take [...] puff - Active Flonase 50 mcg/actuation Nasal [place] spray 1 spray by intranasal route every [...] Diagnoses Date Provider Providers Copied on Encounter [facility], [address], [place], [place], [id number] , tel: [phone] [facility] No Information 5 Damien Allen. [address] [place] [address], [id number]. tel:[phone] [facility], [address], [place], [place], [address] , [place] tel: [phone] [facility] No Information 5-201 5 Damien Allen. [address] [place] [address], [id number]. tel:[phone] [facility], [address], [place], [place], [address] , [place] tel: [phone] [facility] No Information 4 Harney Zulma Allen. [address] [place] [address], [facility] [address], [place], [place], [id number]. tel:[phone] [facility], [address], [place], [place], [address] , [place] tel: [phone] [facility] No Information 3 Harney Threats Tiffany. [address] [place] [address], [facility], [place], [place], [id number]. tel:[phone] [facility], [address], [place], [place], [id number] , [place] tel: [phone] [facility] Strain of right knee and leg 3 Shahmarcell Castellanos. [address] [place] [address], [facility], [place], [place], [id number], [place]. tel:[phone] Referring Provider: Tiffany Maya, [address] [place] [address], [place], [address] . tel:[phone] [facility], [address], [place], [place], [id number] , [place] tel: [phone] [facility] No Information 3 Harneymissy Allen. [address] [place] [address], [facility], [place], [place], [address]. tel:[phone] [facility], [address], [place], [place], [address] , [place] tel: [phone] [facility] Type II diabetes mellitusDyslipidemi aContact with or exposure to tuberculosis 3 Harney Zulma Carrizalesan. [address] [place] [address] 107, [place], [place], [address]. tel:[phone] Referring Provider: Tiffany Maya, [address] [place] [address] 107, [place], [address] . tel:[phone] [facility], [address], [place], [place], [address] , [place] tel: [phone] [facility] Diabetes mellitus without mention of complication, type II or unspecified type, uncontrolledAllergi c rhinitis, cause unspecifiedExtrinsi c asthmaMorbid obesityDiabetes mellitus without mention of complication, type II or unspecified type, not stated as uncontrolled 0 3 Damien Allen. [address] [place] [address], [place] [address], [place], [place], [address]. tel:[phone] Referring Provider: Tiffany Maya, [address] [place] [address], [place], [address] . tel:[phone] [facility], [address], [place], [place], [address] , tel: [phone] [facility] No Information 3 Damien Allen. [address] [place] [address], [id number]. tel:[phone] [facility], [address], [place], [place], [address] , [place] tel: [phone] [facility] No Information 3 Sarah Cutler. [address] [place] [address], [place], [place], [address], [place]. tel:[phone] [facility], [address], [place], [place], [address] , tel: [phone] [facility] Bronchitis, not specified as acute or chronicBronchitis, not specified as acute or chronic 3 Damien Allen. [address] [place] [address], [address], [id number]. tel:[phone] Referring Provider: Tiffany Maya, [address] [place] [address], [place], [address] . tel:[phone] [facility], [address], [place], [place], [address] , tel: [phone] [facility] No Information 0 3 Sarah Cutler. [address], [address], [place], [place], [address], [place]. [phone] [facility], [address], [place], [place], [address] , tel: [phone] [facility] Diabetes mellitus without mention of complication, type II or unspecified type, uncontrolledEdemaIn fertility, female, associated with anovulationAllergic rhinitis, cause unspecifiedRoutine medical examMorbid obesityIrregular menses 3 Damien Maya Tiffany. [address], [address], [place], [place], [id number]. [phone] Referring Provider: Tiffany Maya, [facility], [place], [address] . tel:[phone] Family History Family Member Type Diagnosis Age [...] type Covered constitution party ID Authoriza tion(s) medineering OPEN ACCESS I II III CI [id number] Social History Type Description Quantity Date Captured [...]
--- OUTSIDE RECORDS SUMMARY | 2024-10-03 04:20 | XMS_ITS | Encounter Summary ---
Author Organization [facility] Address [address] [place] [address] Care Team Providers Care Elevator Mechanic Name Role Phone Tiffany Cox MD Primary Care Provider Unavailable Kishor Saleh MD Primary Care Provider Encounter Details Date Type Department Care Team (Late st Contact Info) Description 07/03/2023 Lab Requisition [facility] - DermPath Lab [address] [facility] [place] [address] [place] [address] [address] Social History Tobacco Use Types [...] Diagnosis Comments DERMATOPATHOLOGY Routine 07/01/2023 3:33 AM SALES STORE CHECKER documented in this encounter Results * DERMATOPATHOLOGY (07/01/2023 3:33 AM SALES STORE CHECKER) Case Report Dermatopathology Report Case: [id number] Authorizing Provider: Kendrick Christopher MD Collected: 07/01/2023 03:33 AM Ordering Location: [facility]erm[facility] Lab Received: 07/03/2023 12:12 PM Pathologist: Bella Schwab MD Specimen: Skin, right inferior knee 3:45 PM [facility] DERMATOPATHOLOGY LABORATORY Final Diagnosis Specimen A. SKIN, right inferior knee: STASIS DERMATITIS (L30.8) DERMAL FIBROSIS (L90.5) (see microscopic description) 3 3:45 PM [facility] DERMATOPATHOLOGY LABORATORY Clinical History Rash; R/O Leukocytoclastic Vasculitis, Livedo Reticularis 3 3:45 PM [facility] DERMATOPATHOLOGY LABORATORY Gross Description Specimen A: Received is one formalin filled container labeled with the patient's name and designated right inferior knee. The specimen consists of a punch biopsy measuring 6x5x6 mm. Jar 0. 3 3:45 PM [facility] DERMATOPATHOLOGY LABORATORY Microscopic Description Specimen A. [...] obtained and reviewed. 3 3:45 PM [facility] DERMATOPATHOLOGY LABORATORY Disclaimer An external and internal positive and negative controls are appropriate for the histochemical, immunohistochemical and immunofluorescence stain(s) in this case (if any), except where stated explicitly. The performance characteristics of the stain(s) cited in this report were developed and its performance characteristic determined by the Dermatopathology Laboratory at [facility], directed by Dr. Arnol Perea. These tests need not be, and therefore are not, approved by the [place] Food and Drug Administration. The tests are used for clinical purposes. Billing Codes Specimen Charges Stain Charges 69491 1 89643 1 3 3:45 PM [facility] DERMATOPATHOLOGY LABORATORY Embedded Images 3 3:45 PM [facility] DERMATOPATHOLOGY LABORATORY Pathology/Cytolo gy TISSUE SPECIMEN FROM SKIN / Unknown 07/01/2023 3:33 AM SALES STORE CHECKER 07/03/2023 12:12 PM SALES STORE CHECKER Kendrick Christopher MD LAB - PATHOLOGY/CY TOLOGY ORDERABLES DERMATOPATHOLOGY LABORATORY [facility] - Department of Dermatology [facility] [address] [facility], [address] [phone] documented in this encounter Visit Diagnoses Not on filedocumented in this encounter Additional Health Concerns Infection Onset Date Last Indicated Resolved Time COVID-19 Under Investigation 08/13/2024 08/13/2024 08/13/2024 11:30 PM SALES STORE CHECKER documented as of this encounter Care Teams Elevator Mechanic Relationship Specialty Start Date End Date Tiffany Cox MD PCP - General Internal Medicine 05/16/13 07/30/23 Kishor Saleh MD [address] [facility] [address] [address] PCP - General Internal Medicine 07/31/23 documented as of this encounter
--- OUTSIDE RECORDS SUMMARY | 2024-10-03 04:20 | XMS_ITS | Referral Summary ---
Author Organization [facility] Address [address] [place] [address] Care Team Providers Care Director Of Culture Name Role Phone Kishor Saleh MD Primary Care Provider Source Comments [facility],non-owned Affiliates and Associated Physician Practices is amultiple site organization consisting of ambulatory clinics and hospital sitesin [place], [place], [place] and [place]. This disclosure is being madepursuant to the Care Everywhere program and may not contain all information available regarding this patient. Last updated 18.[facility] Encounters Date Type Department Care Team Description 08/13/2024 3:43 PM RETORT LOAD EXPEDITER - 08/18/2024 5:19 PM RETORT LOAD EXPEDITER Hospital Encounter [facility] [address]N Tele[address] [place], [place] [id number] Alexus Ramirez MD Ramgopal, Britney Martin, MD [...] fluticasone propionate (Flonase) 50 MCG/ACT nasal spray [place] 2 (two) sprays into each nostril once [...] Active vitamin D, ergocalciferol, (Drisdol) 1.25 MG (65079 UT) capsule Take 1 (one) capsule by [...] the past 12 m [facility], were you homeless or living in a half-way (including now)? No 08/15/2024 Sex and Gender Information Value Date Recorded Sex Assigned at Not on file Gender Identity Not on file Sexual Orientation Not on file Last Filed Vital Signs Vital Sign Reading Time Taken Comments Blood Pressure 154/92 08/18/2024 12:25 PM RETORT LOAD EXPEDITER Pulse 102 08/18/2024 12:25 PM RETORT LOAD EXPEDITER Temperature 36.7 C (98.1 F) 08/18/2024 12:25 PM RETORT LOAD EXPEDITER Respiratory Rate 23 08/18/2024 12:2 5 PM RETORT LOAD EXPEDITER Oxygen Saturation 90% 08/18/2024 12: 25 PM RETORT LOAD EXPEDITER Inhaled Oxygen Concentration 21% 08/18/2024 2 :00 PM RETORT LOAD EXPEDITER Weight 132.6 kg (292 lb 4.8 oz) 08/18/2024 4:00 AM RETORT LOAD EXPEDITER Height 167.6 cm (5' 6 ) 08/13/2024 5:14 PM RETORT LOAD EXPEDITER Body Mass Index 47.18 08/13/2024 5:14 PM RETORT LOAD EXPEDITER Functional Status Functional Status Response Date of [...] CARDIAC RHYTHM STRIP ORDER 08/23/2024 2:41 AM RETORT LOAD EXPEDITER HOME O2 EVAL (DESATURATION SCREEN) Routine 08/18/2024 10:39 AM RETORT LOAD EXPEDITER GLUCOSE - POINT OF CARE Routine 08/18/2024 7:46 AM RETORT LOAD EXPEDITER GLUCOSE - POINT OF CARE Routine 08/17/2024 9:47 PM RETORT LOAD EXPEDITER GLUCOSE - POINT OF CARE Routine 08/17/2024 5:03 PM RETORT LOAD EXPEDITER GLUCOSE - POINT OF CARE Routine 08/17/2024 12:36 PM RETORT LOAD EXPEDITER GLUCOSE - POINT OF CARE Routine 08/17/2024 7:48 AM RETORT LOAD EXPEDITER CBC W/O DIFFERENTIAL AM Draw 08/17/2024 4:16 AM RETORT LOAD EXPEDITER BASIC METABOLIC PANEL (CALCIUM TOTAL) AM Draw 08/17/2024 4:16 AM RETORT LOAD EXPEDITER GLUCOSE - POINT OF CARE Routine 08/17/2024 12:18 AM RETORT LOAD EXPEDITER VANCOMYCIN LEVEL TROUGH Timed 08/16/2024 6:35 PM RETORT LOAD EXPEDITER GLUCOSE - POINT OF CARE Routine 08/16/2024 6:43 AM RETORT LOAD EXPEDITER CBC W/O DIFFERENTIAL AM Draw 08/16/2024 4:59 AM RETORT LOAD EXPEDITER BASIC METABOLIC PANEL (CALCIUM TOTAL) AM Draw 08/16/2024 4:59 AM RETORT LOAD EXPEDITER GLUCOSE - POINT OF CARE Routine 08/15/2024 10:15 PM RETORT LOAD EXPEDITER GLUCOSE - POINT OF CARE Routine 08/15/2024 4:36 PM RETORT LOAD EXPEDITER GLUCOSE - POINT OF CARE Routine 08/15/2024 2:22 PM RETORT LOAD EXPEDITER GLUCOSE - POINT OF CARE Routine 08/15/2024 12:24 PM RETORT LOAD EXPEDITER CULTURE BLOOD Timed 08/15/2024 8:54 AM RETORT LOAD EXPEDITER CULTURE BLOOD Timed 08/15/2024 8:45 AM RETORT LOAD EXPEDITER GLUCOSE - POINT OF CARE Routine 08/15/2024 5:48 AM RETORT LOAD EXPEDITER CBC W/O DIFFERENTIAL AM Draw 08/15/2024 3:33 AM RETORT LOAD EXPEDITER BASIC METABOLIC PANEL (CALCIUM TOTAL) AM Draw 08/15/2024 3:33 AM RETORT LOAD EXPEDITER GLUCOSE - POINT OF CARE Routine 08/14/2024 11:41 PM RETORT LOAD EXPEDITER GLUCOSE - POINT OF CARE Routine 08/14/2024 6:04 PM RETORT LOAD EXPEDITER GLUCOSE - POINT OF CARE Routine 08/14/2024 12:04 PM RETORT LOAD EXPEDITER GLUCOSE - POINT OF CARE Routine 08/14/2024 10:07 AM RETORT LOAD EXPEDITER GLUCOSE - POINT OF CARE Routine 08/14/2024 9:14 AM RETORT LOAD EXPEDITER GLUCOSE - POINT OF CARE Routine 08/14/2024 8:22 AM RETORT LOAD EXPEDITER GLUCOSE - POINT OF CARE Routine 08/14/2024 7:16 AM RETORT LOAD EXPEDITER GLUCOSE - POINT OF CARE Routine 08/14/2024 6:28 AM RETORT LOAD EXPEDITER GLUCOSE - POINT OF CARE Routine 08/14/2024 5:31 AM RETORT LOAD EXPEDITER GLUCOSE - POINT OF CARE Routine 08/14/2024 4:30 AM RETORT LOAD EXPEDITER GLUCOSE - POINT OF CARE Routine 08/14/2024 3:27 AM RETORT LOAD EXPEDITER HEMOGLOBIN A1C Routine 08/14/2024 3:27 AM RETORT LOAD EXPEDITER CBC W/O DIFFERENTIAL AM Draw 08/14/2024 3:27 AM RETORT LOAD EXPEDITER BASIC METABOLIC PANEL (CALCIUM TOTAL) AM Draw 08/14/2024 3:27 AM RETORT LOAD EXPEDITER GLUCOSE - POINT OF CARE Routine 08/14/2024 2:33 AM RETORT LOAD EXPEDITER GLUCOSE - POINT OF CARE Routine 08/14/2024 1:29 AM RETORT LOAD EXPEDITER GLUCOSE - POINT OF CARE Routine 08/14/2024 12:23 AM RETORT LOAD EXPEDITER GLUCOSE - POINT OF CARE Routine 08/13/2024 8:07 PM RETORT LOAD EXPEDITER STREP PNEUMONIAE ANTIGEN URINE Routine 08/13/2024 5:17 PM RETORT LOAD EXPEDITER LEGIONELLA ANTIGEN URINE Routine 08/13/2024 5:17 PM RETORT LOAD EXPEDITER RESPIRATORY PANEL WITH SARS-COV-2 BY PCR (STL) Routine 08/13/2024 5:09 PM RETORT LOAD EXPEDITER CULTURE BLOOD Timed 08/13/2024 5:09 PM RETORT LOAD EXPEDITER CULTURE MRSA Routine 08/13/2024 5:09 PM RETORT LOAD EXPEDITER DIFFERENTIAL MANUAL STAT 08/13/2024 5 :08 PM RETORT LOAD EXPEDITER PTT STAT 08/13/2024 5:08 PM RETORT LOAD EXPEDITER PT-INR STAT 08/13/2024 5:08 PM RETORT LOAD EXPEDITER PHOSPHORUS BLOOD STAT 08/13/2024 5:08 PM RETORT LOAD EXPEDITER MAGNESIUM BLOOD STAT 08/13/2024 5:08 PM RETORT LOAD EXPEDITER LIPASE BLOOD STAT 08/13/2024 5:08 PM RETORT LOAD EXPEDITER LACTIC ACID BLOOD STAT 08/13/2024 5:0 8 PM RETORT LOAD EXPEDITER COMPREHENSIVE METABOLIC PANEL STAT 08/13/2024 5:08 PM RETORT LOAD EXPEDITER CBC W AUTO DIFFERENTIAL STAT 08/13/2024 5:08 PM RETORT LOAD EXPEDITER B-TYPE NATRIURETIC PEPTIDE STAT 08/13/2024 5:08 PM RETORT LOAD EXPEDITER BCID PANEL Routine 08/13/2024 5:08 PM RETORT LOAD EXPEDITER CULTURE BLOOD Timed 08/13/2024 5:08 PM RETORT LOAD EXPEDITER GLUCOSE - POINT OF CARE Routine 08/13/2024 4:48 PM RETORT LOAD EXPEDITER BLOOD GASES ARTERIAL STAT 08/13/2024 4:16 PM RETORT LOAD EXPEDITER XR CHEST 1VW PORTABLE STAT 08/13/2024 4:04 PM RETORT LOAD EXPEDITER Acute hypoxic respiratory failure (HCC) from Last 3 Months Results * CARDIAC RHYTHM STRIP ORDER (08/23/2024 2:41 AM RETORT LOAD EXPEDITER) Narrative 08/23/2024 2:41 AM RETORT LOAD EXPEDITER Ordered by an unspecified provider. Scanned Document CARDIAC SERVICES ORD ERABLES * GLUCOSE - POINT OF CARE (08/18/2024 7:46 AM RETORT LOAD EXPEDITER) Only the most recent of28 resultswithin the time period is included. Glucose WB/POC 81 70 - 99 mg/dL 08/18/2024 7:51 AM RETORT LOAD EXPEDITER [facility] Specimen Type Cap Fingerstick 2024 7:51 AM RETORT LOAD EXPEDITER [facility] Blood BLOOD SPECIMEN / Unknown 08/18/2024 7:46 AM RETORT LOAD EXPEDITER 08/18/2024 7:51 AM RETORT LOAD EXPEDITER Young Mcwilliams MD LAB - POINT OF CARE ORDERABLES [facility] [address] [place] [address] * (ABNORMAL) CBC W/O DIFFERENTIAL (08/17/2024 4:16 AM RETORT LOAD EXPEDITER) Only the most recent of4 resultswithin the time period is included. WBC 16.3(H) 4.0 - 10.7 x10E9/L 08/17/2024 4:44 AM [facility] RBC Count 3.51(L) 3.90 - 5.20 x10E12/L 08/17/2024 4:44 AM [facility] Hemoglobin 10.3(L) 11.9 - 15.8 g/dL 08/17/2024 4:44 AM [facility] Hematocrit 32.6(L) 34.8 - 46.1 % 08/17/2024 4:44 AM [facility] MCV 92.9 80.0 - 98.0 fL 08/17/2024 4:44 AM [facility] MCH 29.3 26.7 - 33.6 pg 08/17/2024 4:44 AM [facility] MCHC 31.6(L) 31.7 - 36.3 g/dL 08/17/2024 4:44 AM [facility] RDW-CV 15.8(H) 11.3 - 14.8 % 08/17/2024 4:44 AM [facility] Platelet Count 478(H) 150 - 420 x10E9/L 08/17/2024 4:44 AM [facility] MPV 10.4 7.8 - 11.4 fL 08/17/2024 4:44 AM [facility] NRBC 0.8(H) <=0.0 /100 WBC 08/17/2024 4:44 AM [facility] Blood BLOOD SPECIMEN / Unknown Venipuncture / Unknown 08/17/2024 4:16 AM RETORT LOAD EXPEDITER 08/17/2024 4:30 AM RETORT LOAD EXPEDITER Alexus Ramirez MD LAB - HEMATOLOGY ORD ERABLES [facility] [id number] [place] [address] * (ABNORMAL) BASIC METABOLIC PANEL (CALCIUM TOTAL) (08/17/2024 4:16 AM RETORT LOAD EXPEDITER) Only the most recent of4 resultswithin the time period is included. Glucose 139(H) 70 - 99 mg/dL 08/17/2024 4:53 AM RETORT LOAD EXPEDITER [facility] Sodium 140 136 - 145 mmol/L 08/17/2024 4:53 AM [facility] Potassium 3.5 3.5 - 5.1 mmol/L 08/17/2024 4:53 AM [facility] Chloride 108(H) 98 - 107 mmol/L 08/17/2024 4:53 AM [facility] CO2 24 22 - 29 mmol/L 08/17/2024 4:53 AM [facility] Calcium 8.9 8.4 - 10.4 mg/dL 08/17/2024 4:53 AM [facility] Anion Gap 8 6 - 16 mmol/L 08/17/2024 4:53 AM [facility] BUN 15 5.3 - 18.7 mg/dL 08/17/2024 4:53 AM [facility] Creatinine 0.65 0.57 - 1.11 mg/dL 08/17/2024 4:53 AM [facility] eGFR by CKD-EPI >90 >=90 mL/min/1.7 3 m2 08/17/2024 4:53 AM [facility] Blood BLOOD SPECIMEN / Unknown Venipuncture / Unknown 08/17/2024 4:16 AM RETORT LOAD EXPEDITER 08/17/2024 4:30 AM [facility] Alexus Ramirez MD LAB - CHEMISTRY MICHAEL MONTGOMERY [facility] Organization Address City/State/ZIP Co de Phone Number [facility] [address] [place] [address] * (ABNORMAL) VANCOMYCIN LEVEL TROUGH (08/16/2024 6:35 PM RETORT LOAD EXPEDITER) Vancomycin Trough 6.1(L) 10.0 - 20.0 ug/mL 08/16/2024 7:22 PM RETORT LOAD EXPEDITER [facility] Blood BLOOD SPECIMEN / Unknown Venipuncture / Unknown 08/16/2024 6:35 PM RETORT LOAD EXPEDITER 08/16/2024 7:02 PM RETORT LOAD EXPEDITER Anatoliy Wyman MD LAB - CHEMISTRY MICHAEL MONTGOMERY [facility] [address] [place] [address] * CULTURE BLOOD (08/15/2024 8:54 AM RETORT LOAD EXPEDITER) Only the most recent of4 resultswithin the time period is included. Culture No growth day 5 LORENZO 08/20/2024 1:31 PM RETORT LOAD EXPEDITER [facility] Blood PERIPHERAL BLOOD / Unknown Venipuncture / Unknown 08/15/2024 8:54 AM RETORT LOAD EXPEDITER 08/15/2024 9:13 AM RETORT LOAD EXPEDITER Amadeo Milner MD LAB - MICROBIOLOGY O RDERAJANETTE Performing Organization Address City/[facility]/ZIP Co de Phone Number [facility] [address] [place], [place] [address] [phone] * (ABNORMAL) HEMOGLOBIN A1C (08/14/2024 3:27 AM RETORT LOAD EXPEDITER) Hemoglobin A1c 10.1(H) <5.7 % 08/14/2024 3:48 AM RETORT LOAD EXPEDITER [facility] Estimated Average Glucose 243 mg/dL 08/14/2024 3:48 AM RETORT LOAD EXPEDITER [facility] Blood BLOOD SPECIMEN / Unknown Venipuncture / Unknown 08/14/2024 3:27 AM RETORT LOAD EXPEDITER 08/14/2024 3:37 AM RETORT LOAD EXPEDITER Narrative [facility] - 08/14/2024 3:48 AM RETORT LOAD EXPEDITER HbA1c Interpretation: Normal: < 5.7% Pre-diabetes: 5.7-6.4% [...] - CHEMISTRY MICHAEL MONTGOMERY Performing Organization Address [facility] Co de Phone Number [facility] [address] [place] [address] * STREP PNEUMONIAE ANTIGEN URINE (08/13/2024 5:17 PM RETORT LOAD EXPEDITER) Streptococcus pneumoniae Antigen Urine Negative Negative 08/14/2024 8:17 AM RETORT LOAD EXPEDITER [facility] Urine URINE / Unknown Collection / Unknown 08/13/2024 5:17 PM RETORT LOAD EXPEDITER 08/13/2024 5:22 PM RETORT LOAD EXPEDITER Narrative [facility] - 08/14/2024 8:17 AM RETORT LOAD EXPEDITER Patients who have received the Streptococcus pneumoniae [...] - MICROBIOLOGY O RDERABLES Performing Organization Address City/[facility]/ZIP Co de Phone Number [facility] [address] [place] [address] [phone] * LEGIONELLA ANTIGEN URINE (08/13/2024 5:17 PM RETORT LOAD EXPEDITER) Legionella Antigen Urine Negative Negative 08/14/2024 8:21 AM RETORT LOAD EXPEDITER [facility] Urine URINE / Unknown Collection / Unknown 08/13/2024 5:17 PM RETORT LOAD EXPEDITER 08/13/2024 5:22 PM RETORT LOAD EXPEDITER Narrative [facility] - 08/14/2024 8:21 AM RETORT LOAD EXPEDITER This assay detects Legionella pneumophila serogroup one (1) antigen. A negative test result does not rule out the possibility of Legionella infection due to other serogroups or species of Legionella. A positive result may indicate a recent or remote infection with serogroup 1. Alexus Ramirez MD LAB - MICROBIOLOGY O RDERABLES [facility] [address] [place] [address], [facility] [phone] * (ABNORMAL) RESPIRATORY PANEL WITH SARS-COV-2 BY PCR (STL) (08/13/2024 5:09 PM RETORT LOAD EXPEDITER) Pathologist [facility] Adenovirus PCR Not detected Not detected 08/13/2024 11:30 PM RETORT LOAD EXPEDITER [facility] Coronavirus 229E PCR Not detected Not detected 08/13/2024 11:30 PM RETORT LOAD EXPEDITER [facility] Coronavirus HKU1 PCR Not detected Not detected 08/13/2024 11:30 PM RETORT LOAD EXPEDITER [facility] Coronavirus NL63 PCR Not detected Not detected 08/13/2024 11:30 PM RETORT LOAD EXPEDITER [facility] Coronavirus OC43 PCR Not detected Not detected 08/13/2024 11:30 PM RETORT LOAD EXPEDITER [facility] COVID-19 PCR Not detected Not detected 08/13/2024 11:30 PM RETORT LOAD EXPEDITER [facility] Human Metapneumovirus PCR Not detected Not detected 08/13/2024 11:30 PM RETORT LOAD EXPEDITER [facility] Human Rhinovirus/Enterov irus PCR Not detected Not detected 08/13/2024 11:30 PM RETORT LOAD EXPEDITER [facility] Influenza A PCR Not detected Not detected 08/13/2024 11:30 PM RETORT LOAD EXPEDITER [facility] Influenza B PCR Not detected Not detected 08/13/2024 11:30 PM RETORT LOAD EXPEDITER [facility] Parainfluenza Virus 1 PCR Not detected Not detected 08/13/2024 11:30 PM RETORT LOAD EXPEDITER [facility] Parainfluenza Virus 2 PCR Not detected Not detected 08/13/2024 11:30 PM RETORT LOAD EXPEDITER [facility] Parainfluenza Virus 3 PCR Not detected Not detected 08/13/2024 11:30 PM RETORT LOAD EXPEDITER [facility] Parainfluenza Virus 4 PCR Not detected Not detected 08/13/2024 11:30 PM RETORT LOAD EXPEDITER [facility] Respiratory Syncytial Virus PCR Detected(A) Not detected 08/13/2024 11:30 PM RETORT LOAD EXPEDITER [facility] Bordetella parapertussis PCR Not detected Not detected 08/13/2024 11:30 PM RETORT LOAD EXPEDITER [facility] Bordetella pertussis PCR Not detected Not detected 08/13/2024 11:30 PM RETORT LOAD EXPEDITER [facility] Chlamydia pneumoniae PCR Not detected Not detected 08/13/2024 11:30 PM RETORT LOAD EXPEDITER [facility] Mycoplasma pneumoniae PCR Not detected Not detected 08/13/2024 11:30 PM RETORT LOAD EXPEDITER [facility] Microbiology SPECIMEN FROM NASOPHARYNGEAL STRUCTURE / Unknown Collection / Unknown 08/13/2024 5:09 PM RETORT LOAD EXPEDITER 08/13/2024 5:20 PM RETORT LOAD EXPEDITER Narrative [facility] - 08/13/2024 11:30 PM RETORT LOAD EXPEDITER Contact and Droplet Precautions Required. This nucleic amplification assay has received FDA authorization via the [place] [employer]. Alexus Ramirez MD LAB - MICROBIOLOGY O RDMERISSA [facility] [address] [place] [address], [facility] [phone] * CULTURE MRSA (08/13/2024 5:09 PM RETORT LOAD EXPEDITER) Culture Negative for methicillin-resist ant Staphylococcus aureus (MRSA) LORENZO 08/15/2024 8:16 AM RETORT LOAD EXPEDITER [facility] Microbiology SPECIMEN FROM NASAL FOSSAE / Unknown Collection / Unknown 08/13/2024 5:09 PM RETORT LOAD EXPEDITER 08/13/2024 5:21 PM RETORT LOAD EXPEDITER Alexus Ramirez MD LAB - MICROBIOLOGY O RDERAJANETTE Performing Organization Address City/[facility]/ZIP Co de Phone Number [facility] [address] [place] [address], [facility] [phone] * (ABNORMAL) BCID PANEL (08/13/2024 5:08 PM RETORT LOAD EXPEDITER) Staphylococcus epidermidis Detected (A) Not detected 08/15/2024 2:03 AM RETORT LOAD EXPEDITER [facility] MECA/C (Methicillin-Resi stance Gene) Detected (A) Not detected 08/15/2024 2:03 AM RETORT LOAD EXPEDITER [facility] Comment:Results indicate met hicillin-resistant Staphylococcus epidermidis. Methicillin-resistance detected. Blood PERIPHERAL BLOOD / Unknown Venipuncture / Unknown 08/13/2024 5:08 PM RETORT LOAD EXPEDITER 08/13/2024 5:19 PM RETORT LOAD EXPEDITER Narrative [facility] - 08/15/2024 2:03 AM RETORT LOAD EXPEDITER Blood Culture ID Panel performed by Ansible multiplex PCR. The Test panel includes: Gram [...] and MREJ (methicillin-resistance - MRSA), NDM ([place] [id number]), OXA-48-[id number] (oxacillinase beta-lactamase),Ashly/B (vancomycin-resistance), VIM (Noa Intergrom-Encoded Metallo beta-lactamase). Alexus Ramirez MD LAB - MICROBIOLOGY O RDERABLES [facility] [address] [place] [address], [facility] [phone] * PTT (08/13/2024 5:08 PM RETORT LOAD EXPEDITER) [facility] PTT 28.4 23.0 - 38.4 sec 08/13/2024 5:43 PM RETORT LOAD EXPEDITER [facility] Blood BLOOD SPECIMEN / Unknown Venipuncture / Unknown 08/13/2024 5:08 PM RETORT LOAD EXPEDITER 08/13/2024 5:21 PM RETORT LOAD EXPEDITER Narrative [facility] - 08/13/2024 5:43 PM RETORT LOAD EXPEDITER Heparin Therapeutic Range for PTT: 69.0 - 110.0 seconds. Alexus Ramirez MD LAB - COAGULATION OR DERABLES Performing Organization Address [facility] Co de Phone Number [facility] [id number] [place] [address] * PT-INR (08/13/2024 5:08 PM RETORT LOAD EXPEDITER) Pathologist [facility] PT 14.1 12.1 - 14.8 sec 08/13/2024 5:43 PM RETORT LOAD EXPEDITER [facility] INR 1.1 0.9 - 1.1 08/13/2024 5:43 PM RETORT LOAD EXPEDITER [facility] Blood BLOOD SPECIMEN / Unknown Venipuncture / Unknown 08/13/2024 5:08 PM RETORT LOAD EXPEDITER 08/13/2024 5:21 PM RETORT LOAD EXPEDITER Narrative [facility] - 08/13/2024 5:43 PM RETORT LOAD EXPEDITER Conventional Warfarin Anticoagulant Therapy: INR Reference Range: 2.0-3.0 Intensive Warfarin Anticoagulant Therapy: INR Reference Range: 2.5-3.5 Alexus Ramirez MD LAB - COAGULATION OR DERABLES Performing Organization Address City/[facility] Co de Phone Number [facility] [id number] [place] [address] * (ABNORMAL) DIFFERENTIAL MANUAL (08/13/2024 5:08 PM RETORT LOAD EXPEDITER) Pathologist [facility] Neutrophil % 90(H) 41 - 74 % 08/13/2024 6:34 PM RETORT LOAD EXPEDITER [facility] Lymphocyte % 4(L) 17 - 47 % 08/13/2024 6:34 PM RETORT LOAD EXPEDITER [facility] Monocyte % 1(L) 3 - 11 % 08/13/2024 6:34 PM RETORT LOAD EXPEDITER [facility] Basophil % 1 0 - 2 % 08/13/2024 6:34 PM RETORT LOAD EXPEDITER [facility] Myelocyte % 3(H) 0% % 08/13/2024 6:34 PM RETORT LOAD EXPEDITER [facility] Promyelocyte % 1(H) 0% % 08/13/2024 6:34 PM RETORT LOAD [facility] Neutrophil Absolute 17.91(H) 1.60 - 7.50 x10E9/L 08/13/2024 6:34 PM RETORT LOAD EXPEDITER [facility] Lymphocyte Absolute 0.80(L) 1.00 - 4.40 x10E9/L 08/13/2024 6:34 PM RETORT LOAD [facility] Monocyte Absolute 0.20 0.15 - 1.00 x10E9/L 08/13/2024 6:34 PM RETORT LOAD [facility] Basophil Absolute 0.20(H) 0.00 - 0.13 x10E9/L 08/13/2024 6:34 PM RETORT LOAD EXPEDITER [facility] RBC Morphology REVIEWED 08/13/2024 6:34 PM RETORT LOAD EXPEDITER [facility] Blood BLOOD SPECIMEN / Unknown Venipuncture / Unknown 08/13/2024 5:08 PM RETORT LOAD EXPEDITER 08/13/2024 5:21 PM RETORT LOAD EXPEDITER Alexus Ramirez MD LAB - HEMATOLOGY ORD ERABLES [facility] [id number] [place] [address] * (ABNORMAL) CBC W AUTO DIFFERENTIAL (08/13/2024 5:08 PM RETORT LOAD EXPEDITER) WBC 19.9(H) 4.0 - 10.7 x10E9/L 08/13/2024 6:34 PM RETORT LOAD [facility] RBC Count 3.41(L) 3.90 - 5.20 x10E12/L 08/13/2024 6:34 PM RETORT LOAD [facility] Hemoglobin 10.1(L) 11.9 - 15.8 g/dL 08/13/2024 6:34 PM RETORT LOAD [facility] Hematocrit 31.0(L) 34.8 - 46.1 % 08/13/2024 6:34 PM RETORT LOAD EXPEDITER [facility] MCV 90.9 80.0 - 98.0 fL 08/13/2024 6:34 PM RETORT LOAD EXPEDITER [facility] MCH 29.6 26.7 - 33.6 pg 08/13/2024 6:34 PM [facility] MCHC 32.6 31.7 - 36.3 g/dL 08/13/2024 6:34 PM [facility] RDW-CV 15.2(H) 11.3 - 14.8 % 08/13/2024 6:34 PM [facility] Platelet Count 340 150 - 420 x10E9/L 08/13/2024 6:34 PM [facility] MPV 11.4 7.8 - 11.4 fL 08/13/2024 6:34 PM [facility] Blood BLOOD SPECIMEN / Unknown Venipuncture / Unknown 08/13/2024 5:08 PM RETORT LOAD EXPEDITER 08/13/2024 5:21 PM RETORT LOAD EXPEDITER Alexus Ramirez MD LAB - HEMATOLOGY ORD ERABLES Performing Organization Address [facility] Co de Phone Number [facility] [id number] [place] [phone] * B-TYPE NATRIURETIC PEPTIDE (08/13/2024 5:08 PM RETORT LOAD EXPEDITER) Pathologist [facility] BNP 43 <=100 pg/mL 08/13/2024 5:45 PM [facility] Blood BLOOD SPECIMEN / Unknown Venipuncture / Unknown 08/13/2024 5:08 PM RETORT LOAD EXPEDITER 08/13/2024 5:21 PM RETORT LOAD EXPEDITER Alexus Ramirez MD LAB - CHEMISTRY ORDE RABLES Performing Organization Address [place]/[facility] Co de Phone Number [facility] [id number] [place] [address] * (ABNORMAL) COMPREHENSIVE METABOLIC PANEL (08/13/2024 5:08 PM RETORT LOAD EXPEDITER) Glucose 396(H) 70 - 99 mg/dL 08/13/2024 5:39 PM RETORT LOAD EXPEDITER [facility] Sodium 135(L) 136 - 145 mmol/L 08/13/2024 5:39 PM [facility] Potassium 5.0 3.5 - 5.1 mmol/L 08/13/2024 5:39 PM RETORT LOAD EXPEDITER [facility] Chloride 99 98 - 107 mmol/L 08/13/2024 5:39 PM [facility] CO2 26 22 - 29 mmol/L 08/13/2024 5:39 PM [facility] Calcium 9.2 8.4 - 10.4 mg/dL 08/13/2024 5:39 PM [facility] Anion Gap 10 6 - 16 mmol/L 08/13/2024 5:39 PM [facility] BUN 28(H) 5.3 - 18.7 mg/dL 08/13/2024 5:39 PM [facility] Creatinine 0.89 0.57 - 1.11 mg/dL 08/13/2024 5:39 PM [facility] Alkaline Phosphatase 111 40 - 150 U/L 08/13/2024 5:39 PM [facility] ALT 40 0 - 55 U/L 08/13/2024 5:39 PM [facility] AST 15 5 - 34 U/L 08/13/2024 5:39 PM [facility] Protein Total 6.8 6.4 - 8.3 gm/dL 08/13/2024 5:39 PM [facility] Albumin 2.6(L) 3.4 - 5.0 gm/dL 08/13/2024 5:39 PM [facility] Bilirubin Total 0.2 0.2 - 1.2 mg/dL 08/13/2024 5:39 PM [facility] eGFR by CKD-EPI 80(L) >=90 mL/min/1.7 3 m2 08/13/2024 5:39 PM [facility] Blood BLOOD SPECIMEN / Unknown Venipuncture / Unknown 08/13/2024 5:08 PM RETORT LOAD EXPEDITER 08/13/2024 5:21 PM [facility] Alexus Ramirez MD LAB - CHEMISTRY MICHAEL MONTGOMERY [facility] [id number] [place] [address] * PHOSPHORUS BLOOD (08/13/2024 5:08 PM [facility]) [facility] Signature Phosphorus 3.3 2.5 - 4.5 mg/dL 08/13/2024 5:39 PM RETORT LOAD EXPEDITER [facility] Blood BLOOD SPECIMEN / Unknown Venipuncture / Unknown 08/13/2024 5:08 PM RETORT LOAD EXPEDITER 08/13/2024 5:21 PM RETORT LOAD EXPEDITER Alexus Ramirez MD LAB - CHEMISTRY MICHAEL MONTGOMERY Performing Organization Address [facility] Co de Phone Number [facility] [phone] [place] [address] [phone] * MAGNESIUM BLOOD (08/13/2024 5:08 PM RETORT LOAD EXPEDITER) Magnesium 2.0 1.6 - 2.6 mg/dL 08/13/2024 5:39 PM RETORT LOAD EXPEDITER [facility] Blood BLOOD SPECIMEN / Unknown Venipuncture / Unknown 08/13/2024 5:08 PM RETORT LOAD EXPEDITER 08/13/2024 5:21 PM RETORT LOAD EXPEDITER Alexus Ramirez MD LAB - CHEMISTRY MICHAEL MONTGOM[facility] Performing Organization Address [facility] Co de Phone Number [facility] [phone] [place] [phone] * LIPASE BLOOD (08/13/2024 5:08 PM RETORT LOAD EXPEDITER) Lipase 25 <60 U/L 08/13/2024 5:39 PM RETORT LOAD EXPEDITER [facility] Blood BLOOD SPECIMEN / Unknown Venipuncture / Unknown 08/13/2024 5:08 PM RETORT LOAD EXPEDITER 08/13/2024 5:21 PM RETORT LOAD EXPEDITER Alexus Ramirez MD LAB - CHEMISTRY MICHAEL MONTGOMERY Performing Organization Address [facility] [[email or web address]] de Phone Number [facility] [phone] [place] [phone] * LACTIC ACID BLOOD (08/13/2024 5:08 PM RETORT LOAD EXPEDITER) Lactic Acid 1.5 <=2.0 mmol/L 08/13/2024 5:39 PM RETORT LOAD EXPEDITER [facility] Blood BLOOD SPECIMEN / Unknown Venipuncture / Unknown 08/13/2024 5:08 PM RETORT LOAD EXPEDITER 08/13/2024 5:21 PM RETORT LOAD EXPEDITER Alexus Ramirez MD LAB - CHEMISTRY MICHAEL MONTGOMERY Performing Organization Address [facility] Co de Phone Number [facility] [address] [place] [address] * (ABNORMAL) BLOOD GASES ARTERIAL (08/13/2024 4:16 PM RETORT LOAD EXPEDITER) pH Arterial 7.47(H) 7.35 - 7.45 pH 08/13/2024 4:34 PM RETORT LOAD EXPEDITER [facility] pO2 Arterial 99 80 - 100 mmHg 08/13/2024 4:34 PM RETORT LOAD EXPEDITER [facility] pCO2 Arterial 39 35 - 45 mmHg 08/13/2024 4:34 PM RETORT LOAD EXPEDITER [facility] HCO3 Arterial 28.4(H) 22.0 - 26.0 mmol/L 08/13/2024 4:34 PM RETORT LOAD EXPEDITER [facility] BE Arterial 4.5(H) -2.0 - 2.0 mmol/L 08/13/2024 4:34 PM RETORT LOAD EXPEDITER [facility] O2 Saturation Arterial 99 90 - 100 % 08/13/2024 4:34 PM RETORT LOAD EXPEDITER [facility] Sample Site Right RA 08/13/2024 4:34 PM RETORT LOAD EXPEDITER [facility] Mode APVcmv 08/13/2024 4:34 PM RETORT LOAD EXPEDITER [facility] O2 Device VENT 08/13/2024 4:34 PM RETORT LOAD EXPEDITER [facility] FI O2 50.0 % 08/13/2024 4:34 PM RETORT LOAD EXPEDITER [facility] Mechanical Tidal Volume (mL) 380 08/13/2024 4:34 PM RETORT LOAD EXPEDITER [facility] Mechanical Respiratory Rate (bpm) 22 08/13/2024 4:34 PM RETORT LOAD EXPEDITER [facility] PEEP (cmH2O) 10 08/13/2024 4:34 PM RETORT LOAD EXPEDITER [facility] Blood, arterial ARTERIAL BLOOD SPECIMEN / Unknown 08/13/2024 4:16 PM RETORT LOAD EXPEDITER 08/13/2024 4:16 PM RETORT LOAD EXPEDITER Alexus Ramirez MD LAB - BLOOD GASES OR DERABLES Performing Organization Address [facility]/ZIP Co de Phone Number [facility] [address] [place] [address], [place] [phone] * XR CHEST 1VW PORTABLE (08/13/2024 4:04 PM RETORT LOAD EXPEDITER) Anatomical Region Laterality Modality Chest Computed Radiogr aphy 08/13/2024 4:10 PM RETORT LOAD EXPEDITER Impressions 08/13/2024 4:12 PM RETORT LOAD EXPEDITER IMPRESSION: Multiple tubing placements as noted above. Subtle linear streak is present in the left lung. Also the diaphragm.? Atelectasis or scarring. Unfortunately, we have no previous chest imaging studies available at this time. > Interpreting Provider: Ko Olguin MD on 08/13/2024 4:12 PM Narrative 08/13/2024 4:12 PM RETORT LOAD EXPEDITER PROCEDURE: XR CHEST 1VW PORTABLE DATE/TIME OF [...] to the level of the right atrium. cardiac monitor wires obscure the chest bilaterally. Heart [...] extendingto the level of the right atrium. cardiac monitor wires obscure the chest bilaterally. Heart [...] 3:54 PM 08/18/2024 6:24 PM Care Teams Director Of Culture Relationship Specialty Start Date End Date Kishor Saleh MD [address] [address] PCP - General Internal Medicine 07/31/23
--- OUTSIDE RECORDS SUMMARY | 2024-10-03 04:20 | XMS_ITS | Patient Health Summary ---
Author Organization [facility] Plated Address [address] [place] [address] Care Team Providers Care Databases Software Consultant Name Role Phone Kishor Saleh MD Primary Care Provider [phone] Note from [facility],non-owned Affiliates and Associated Physician Practices is amultiple site organization consisting of ambulatory clinics and hospital sitesin [place], [place], [place] and [place]. This disclosure is being madepursuant to the Care Everywhere program and may not contain all information available regarding this patient. Last updated 18.[facility] Allergies * Amlodipine Base(Nausea and/or Vomiting) [...] fluticasone propionate (Flonase) 50 MCG/ACT nasal spray [place] 2 (two) sprays into each nostril once [...] * vitamin D, ergocalciferol, (Drisdol) 1.25 MG (36962 UT) capsule Take 1 (one) capsule by [...] time in the past 12 m [facility], were you homeless or living in a half-way (including now)? No 08/15/2024 Sex and Gender Information Value Date Recorded Sex Assigned at Not on file Gender Identity Not on file Sexual Orientation Not on file Last Filed Vital Signs Vital Sign Reading Time Taken Comments Blood Pressure 154/92 08/18/2024 12:25 PM SAW FEEDER Pulse 102 08/18/2024 12:25 PM SAW FEEDER Temperature 36.7 C (98.1 F) 08/18/2024 12:25 PM SAW FEEDER Respiratory Rate 23 08/18/2024 12:2 5 PM SAW FEEDER Oxygen Saturation 90% 08/18/2024 12: 25 PM SAW FEEDER Inhaled Oxygen Concentration 21% 08/18/2024 2 :00 PM SAW FEEDER Weight 132.6 kg (292 lb 4.8 oz) 08/18/2024 4:00 AM SAW FEEDER Height 167.6 cm (5' 6 ) 08/13/2024 5:14 PM SAW FEEDER Body Mass Index 47.18 08/13/2024 5:14 PM SAW FEEDER Procedures * CARDIAC RHYTHM STRIP ORDER(Performed 08/23/2024) [...] CARDIAC RHYTHM STRIP ORDER (08/23/2024 2:41 AM SAW FEEDER) Narrative 08/23/2024 2:41 AM SAW FEEDER Ordered by an unspecified provider. Scanned Document CARDIAC SERVICES ORD ERABLES * GLUCOSE - POINT OF CARE (08/18/2024 7:46 AM SAW FEEDER) Only the most recent of28 resultswithin the time period is included. [facility] Glucose WB/POC 81 70 - 99 mg/dL 08/18/2024 7:51 AM SAW FEEDER [facility] Specimen Type Cap Fingerstick 2024 7:51 AM SAW FEEDER [facility] Blood BLOOD SPECIMEN / Unknown 08/18/2024 7:46 AM SAW FEEDER 08/18/2024 7:51 AM SAW FEEDER Young Mcwilliams MD LAB - POINT OF CARE ORDERABLES [facility] [address] [place] [address] * (ABNORMAL) CBC W/O DIFFERENTIAL (08/17/2024 4:16 AM SAW FEEDER) Only the most recent of4 resultswithin the time period is included. Pathologist [facility] WBC 16.3(H) 4.0 - 10.7 x10E9/L 08/17/2024 4:44 AM SAW FEEDER [facility] RBC Count 3.51(L) 3.90 - 5.20 x10E12/L 08/17/2024 4:44 AM SAW FEEDER [facility] Hemoglobin 10.3(L) 11.9 - 15.8 g/dL 08/17/2024 4:44 AM [facility] Hematocrit 32.6(L) 34.8 - 46.1 % 08/17/2024 4:44 AM [facility] MCV 92.9 80.0 - 98.0 fL 08/17/2024 4:44 AM [facility] MCH 29.3 26.7 - 33.6 pg 08/17/2024 4:44 AM [facility] MCHC 31.6(L) 31.7 - 36.3 g/dL 08/17/2024 4:44 AM [facility] RDW-CV 15.8(H) 11.3 - 14.8 % 08/17/2024 4:44 AM [facility] Platelet Count 478(H) 150 - 420 x10E9/L 08/17/2024 4:44 AM [facility] MPV 10.4 7.8 - 11.4 fL 08/17/2024 4:44 AM [facility] NRBC 0.8(H) <=0.0 /100 WBC 08/17/2024 4:44 AM [facility] Blood BLOOD SPECIMEN / Unknown Venipuncture / Unknown 08/17/2024 4:16 AM SAW FEEDER 08/17/2024 4:30 AM [facility] Alexus Ramirez MD LAB - HEMATOLOGY ORD ERABLES [facility] [address] [place] [address] * (ABNORMAL) BASIC METABOLIC PANEL (CALCIUM TOTAL) (08/17/2024 4:16 AM [facility]) Only the most recent of4 resultswithin the time period is included. Glucose 139(H) 70 - 99 mg/dL 08/17/2024 4:53 AM [facility] Sodium 140 136 - 145 mmol/L 08/17/2024 4:53 AM [facility] Potassium 3.5 3.5 - 5.1 mmol/L 08/17/2024 4:53 AM [facility] Chloride 108(H) 98 - 107 mmol/L 08/17/2024 4:53 AM [facility] CO2 24 22 - 29 mmol/L 08/17/2024 4:53 AM [facility] Calcium 8.9 8.4 - 10.4 mg/dL 08/17/2024 4:53 AM [facility] Anion Gap 8 6 - 16 mmol/L 08/17/2024 4:53 AM [facility] BUN 15 5.3 - 18.7 mg/dL 08/17/2024 4:53 AM [facility] Creatinine 0.65 0.57 - 1.11 mg/dL 08/17/2024 4:53 AM [facility] eGFR by CKD-EPI >90 >=90 mL/min/1.7 3 m2 08/17/2024 4:53 AM [facility] Blood BLOOD SPECIMEN / Unknown Venipuncture / Unknown 08/17/2024 4:16 AM SAW FEEDER 08/17/2024 4:30 AM [facility]EDER Alexus Ramirez MD LAB - CHEMISTRY MICHAEL MONTGOMERY Performing Organization Address [facility] de Phone Number [facility] [address] [place] [address] * (ABNORMAL) VANCOMYCIN LEVEL TROUGH (08/16/2024 6:35 PM SAW FEEDER) [facility] Vancomycin Trough 6.1(L) 10.0 - 20.0 ug/mL 08/16/2024 7:22 PM SAW FEEDER [facility] Blood BLOOD SPECIMEN / Unknown Venipuncture / Unknown 08/16/2024 6:35 PM SAW FEEDER 08/16/2024 7:02 PM SAW FEEDER Anatoliy Wyman MD LAB - CHEMISTRY [place] [place] Performing Organization Address [facility] de Phone Number [facility] [address] [place] [address] * CULTURE BLOOD (08/15/2024 8:54 AM SAW FEEDER) Only the most recent of4 resultswithin the time period is included. [facility] Culture No growth day 5 LORENZO 08/20/2024 1:31 PM SAW FEEDER [facility] Blood PERIPHERAL BLOOD / Unknown Venipuncture / Unknown 08/15/2024 8:54 AM SAW FEEDER 08/15/2024 9:13 AM SAW FEEDER Amadeo Milner MD LAB - MICROBIOLOGY O RDERABLES [facility] [address] [place] [address], [facility] [phone] * (ABNORMAL) HEMOGLOBIN A1C (08/14/2024 3:27 AM SAW FEEDER) Hemoglobin A1c 10.1(H) <5.7 % 08/14/2024 3:48 AM SAW FEEDER [facility] Estimated Average Glucose 243 mg/dL 08/14/2024 3:48 AM SAW FEEDER [facility] Blood BLOOD SPECIMEN / Unknown Venipuncture / Unknown 08/14/2024 3:27 AM SAW FEEDER 08/14/2024 3:37 AM SAW FEEDER [facility] - 08/14/2024 3:48 AM SAW FEEDER HbA1c Interpretation: Normal: < 5.7% Pre-diabetes: 5.7-6.4% [...] Ramirez MD LAB - CHEMISTRY MICHAEL MONTGOMERY [facility] [address] [place] [address] * STREP PNEUMONIAE ANTIGEN URINE (08/13/2024 5:17 PM SAW FEEDER) Streptococcus pneumoniae Antigen Urine Negative Negative 08/14/2024 8:17 AM SAW FEEDER [facility] Urine URINE / Unknown Collection / Unknown 08/13/2024 5:17 PM SAW FEEDER 08/13/2024 5:22 PM SAW FEEDER Narrative [facility] - 08/14/2024 8:17 AM SAW FEEDER Patients who have received the Streptococcus pneumoniae [...] - MICROBIOLOGY Blayne BABCOCK Performing Organization Address [facility] Co de Phone Number [facility] [address] [place] [address], [facility] [phone] * LEGIONELLA ANTIGEN URINE (08/13/2024 5:17 PM SAW FEEDER) Pathologist [facility] Legionella Antigen Urine Negative Negative 08/14/2024 8:21 AM SAW FEEDER [facility] Urine URINE / Unknown Collection / Unknown 08/13/2024 5:17 PM SAW FEEDER 08/13/2024 5:22 PM SAW FEEDER [facility] - 08/14/2024 8:21 AM SAW FEEDER This assay detects Legionella pneumophila serogroup one (1) antigen. A negative test result does not rule out the possibility of Legionella infection due to other serogroups or species of Legionella. A positive result may indicate a recent or remote infection with serogroup 1. Alexus Ramirez MD LAB - MICROBIOLOGY [place] Performing Organization Address City/[facility]/ZIP Co de Phone Number [facility] [address] [place] [address], [facility] [phone] * (ABNORMAL) RESPIRATORY PANEL WITH SARS-COV-2 BY PCR (STL) (08/13/2024 5:09 PM SAW FEEDER) Adenovirus PCR Not detected Not detected 08/13/2024 11:30 PM SAW FEEDER [facility] Coronavirus 229E PCR Not detected Not detected 08/13/2024 11:30 PM SAW FEEDER [facility] Coronavirus HKU1 PCR Not detected Not detected 08/13/2024 11:30 PM SAW FEEDER [facility] Coronavirus NL63 PCR Not detected Not detected 08/13/2024 11:30 PM SAW FEEDER [facility] Coronavirus OC43 PCR Not detected Not detected 08/13/2024 11:30 PM SAW FEEDER [facility] COVID-19 PCR Not detected Not detected 08/13/2024 11:30 PM SAW FEEDER [facility] Human Metapneumovirus PCR Not detected Not detected 08/13/2024 11:30 PM SAW FEEDER [facility] Human Rhinovirus/Enterov irus PCR Not detected Not detected 08/13/2024 11:30 PM SAW FEEDER [facility] Influenza A PCR Not detected Not detected 08/13/2024 11:30 PM SAW FEEDER [facility] Influenza B PCR Not detected Not detected 08/13/2024 11:30 PM SAW FEEDER [facility] Parainfluenza Virus 1 PCR Not detected Not detected 08/13/2024 11:30 PM SAW FEEDER [facility] Parainfluenza Virus 2 PCR Not detected Not detected 08/13/2024 11:30 PM SAW FEEDER [facility] Parainfluenza Virus 3 PCR Not detected Not detected 08/13/2024 11:30 PM SAW FEEDER [facility] Parainfluenza Virus 4 PCR Not detected Not detected 08/13/2024 11:30 PM SAW FEEDER [facility] Respiratory Syncytial Virus PCR Detected(A) Not detected 08/13/2024 11:30 PM SAW FEEDER [facility] Bordetella parapertussis PCR Not detected Not detected 08/13/2024 11:30 PM SAW FEEDER [facility] Bordetella pertussis PCR Not detected Not detected 08/13/2024 11:30 PM SAW FEEDER [facility] Chlamydia pneumoniae PCR Not detected Not detected 08/13/2024 11:30 PM SAW FEEDER [facility] Mycoplasma pneumoniae PCR Not detected Not detected 08/13/2024 11:30 PM SAW FEEDER [facility] Microbiology SPECIMEN FROM NASOPHARYNGEAL STRUCTURE / Unknown Collection / Unknown 08/13/2024 5:09 PM SAW FEEDER 08/13/2024 5:20 PM SAW FEEDER Narrative [facility] - 08/13/2024 11:30 PM SAW FEEDER Contact and Droplet Precautions Required. This nucleic amplification assay has received FDA authorization via the [place] Pathway. Alexus Ramirez MD LAB - MICROBIOLOGY [place] Performing Organization Address [facility]/ZIP Co de Phone Number [facility] [address] [place] [address], [facility] [phone] * CULTURE MRSA (08/13/2024 5:09 PM SAW FEEDER) Culture Negative for methicillin-resist ant Staphylococcus aureus (MRSA) LORENZO 08/15/2024 8:16 AM SAW FEEDER [facility] Microbiology SPECIMEN FROM NASAL FOSSAE / Unknown Collection / Unknown 08/13/2024 5:09 PM SAW FEEDER 08/13/2024 5:21 PM SAW FEEDER lAexus Ramirez MD LAB - MICROBIOLOGY [place] Performing Organization Address [facility] de Phone Number [facility] [address] [place] [address], [facility] [phone] * (ABNORMAL) BCID PANEL (08/13/2024 5:08 PM SAW FEEDER) Staphylococcus epidermidis Detected (A) Not detected 08/15/2024 2:03 AM SAW FEEDER [facility] MECA/C (Methicillin-Resi stance Gene) Detected (A) Not detected 08/15/2024 2:03 AM SAW FEEDER [facility] Comment:Results indicate met hicillin-resistant Staphylococcus epidermidis. Methicillin-resistance detected. Blood PERIPHERAL BLOOD / Unknown Venipuncture / Unknown 08/13/2024 5:08 PM SAW FEEDER 08/13/2024 5:19 PM SAW FEEDER Narrative [facility] - 08/15/2024 2:03 AM SAW FEEDER Blood Culture ID Panel performed by [employer] [...] and MREJ (methicillin-resistance - MRSA), NDM ([place] mmioevi-fybn-fajfhkecg), OXA-48-like (oxacillinase beta-lactamase),Ashly/B (vancomycin-resistance), VIM ([place] Intergrom-Encoded Metallo beta-lactamase). Alexus Ramirez MD LAB - MICROBIOLOGY O RDERABLES [facility] [address] [place] [address], [facility] [phone] * PTT (08/13/2024 5:08 PM SAW FEEDER) PTT 28.4 23.0 - 38.4 sec 08/13/2024 5:43 PM SAW FEEDER [facility] Blood BLOOD SPECIMEN / Unknown Venipuncture / Unknown 08/13/2024 5:08 PM SAW FEEDER 08/13/2024 5:21 PM SAW FEEDER Narrative [facility] - 08/13/2024 5:43 PM SAW FEEDER Heparin Therapeutic Range for PTT: 69.0 - 110.0 seconds. Alexus Ramirez MD LAB - COAGULATION OR DERABLES Performing Organization Address [facility] de Phone Number [facility] [address] [place] [address] * PT-INR (08/13/2024 5:08 PM SAW FEEDER) [facility] PT 14.1 12.1 - 14.8 sec 08/13/2024 5:43 PM SAW FEEDER [facility] INR 1.1 0.9 - 1.1 08/13/2024 5:43 PM SAW FEEDER [facility] Blood BLOOD SPECIMEN / Unknown Venipuncture / Unknown 08/13/2024 5:08 PM SAW FEEDER 08/13/2024 5:21 PM SAW FEEDER Narrative [facility] - 08/13/2024 5:43 PM SAW FEEDER Conventional Warfarin Anticoagulant Therapy: INR Reference Range: 2.0-3.0 Intensive Warfarin Anticoagulant Therapy: INR Reference Range: 2.5-3.5 Alexus Ramirez MD LAB - COAGULATION OR DERABLES Performing Organization Address [facility] de Phone Number [facility] [address] [place] [phone] * (ABNORMAL) DIFFERENTIAL MANUAL (08/13/2024 5:08 PM SAW FEEDER) [facility] Neutrophil % 90(H) 41 - 74 % 08/13/2024 6:34 PM [facility] Lymphocyte % 4(L) 17 - 47 % 08/13/2024 6:34 PM [facility] Monocyte % 1(L) 3 - 11 % 08/13/2024 6:34 PM [facility] Basophil % 1 0 - 2 % 08/13/2024 6:34 PM [facility] Myelocyte % 3(H) 0% % 08/13/2024 6:34 PM SAW FEEDER [facility] Promyelocyte % 1(H) 0% % 08/13/2024 6:34 PM [facility] Neutrophil Absolute 17.91(H) 1.60 - 7.50 x10E9/L 08/13/2024 6:34 PM SAW FEEDER [facility] Lymphocyte Absolute 0.80(L) 1.00 - 4.40 x10E9/L 08/13/2024 6:34 PM SAW FEEDER [facility] Monocyte Absolute 0.20 0.15 - 1.00 x10E9/L 08/13/2024 6:34 PM [facility] Basophil Absolute 0.20(H) 0.00 - 0.13 x10E9/L 08/13/2024 6:34 PM [facility] RBC Morphology REVIEWED 08/13/2024 6:34 PM [facility] Blood BLOOD SPECIMEN / Unknown Venipuncture / Unknown 08/13/2024 5:08 PM SAW FEEDER 08/13/2024 5:21 PM SAW FEEDER Alexus Ramirez MD LAB - HEMATOLOGY ORD ERABLES [facility] [address] [place] [address] * (ABNORMAL) CBC W AUTO DIFFERENTIAL (08/13/2024 5:08 PM SAW FEEDER) WBC 19.9(H) 4.0 - 10.7 x10E9/L 08/13/2024 6:34 PM [facility] RBC Count 3.41(L) 3.90 - 5.20 x10E12/L 08/13/2024 6:34 PM [facility] Hemoglobin 10.1(L) 11.9 - 15.8 g/dL 08/13/2024 6:34 PM [facility] Hematocrit 31.0(L) 34.8 - 46.1 % 08/13/2024 6:34 PM [facility] MCV 90.9 80.0 - 98.0 fL 08/13/2024 6:34 PM [facility] MCH 29.6 26.7 - 33.6 pg 08/13/2024 6:34 PM [facility] MCHC 32.6 31.7 - 36.3 g/dL 08/13/2024 6:34 PM [facility] RDW-CV 15.2(H) 11.3 - 14.8 % 08/13/2024 6:34 PM [facility] Platelet Count 340 150 - 420 x10E9/L 08/13/2024 6:34 PM [facility] MPV 11.4 7.8 - 11.4 fL 08/13/2024 6:34 PM SAW FEEDER [facility] Blood BLOOD SPECIMEN / Unknown Venipuncture / Unknown 08/13/2024 5:08 PM SAW FEEDER 08/13/2024 5:21 PM SAW FEEDER Alexus Ramirez MD LAB - HEMATOLOGY ORD ERABLES Performing Organization Address [facility] Co de Phone Number [facility] [phone] [place] [phone] * B-TYPE NATRIURETIC PEPTIDE (08/13/2024 5:08 PM SAW FEEDER) BNP 43 <=100 pg/mL 08/13/2024 5:45 PM [facility] Blood BLOOD SPECIMEN / Unknown Venipuncture / Unknown 08/13/2024 5:08 PM SAW FEEDER 08/13/2024 5:21 PM SAW FEEDER Alexus Ramirez MD LAB - CHEMISTRY ORDE RABLES Performing Organization Address [facility] Co de Phone Number [facility] [phone] [place] [phone] * (ABNORMAL) COMPREHENSIVE METABOLIC PANEL (08/13/2024 5:08 PM SAW FEEDER) Glucose 396(H) 70 - 99 mg/dL 08/13/2024 5:39 PM [facility] Sodium 135(L) 136 - 145 mmol/L 08/13/2024 5:39 PM [facility] Potassium 5.0 3.5 - 5.1 mmol/L 08/13/2024 5:39 PM [facility] Chloride 99 98 - 107 mmol/L 08/13/2024 5:39 PM [facility] CO2 26 22 - 29 mmol/L 08/13/2024 5:39 PM [facility] Calcium 9.2 8.4 - 10.4 mg/dL 08/13/2024 5:39 PM [facility] Anion Gap 10 6 - 16 mmol/L 08/13/2024 5:39 PM [facility] BUN 28(H) 5.3 - 18.7 mg/dL 08/13/2024 5:39 PM SAW FEEDER [facility] Creatinine 0.89 0.57 - 1.11 mg/dL 08/13/2024 5:39 PM SAW FEEDER [facility] Alkaline Phosphatase 111 40 - 150 U/L 08/13/2024 5:39 PM SAW FEEDER [facility] ALT 40 0 - 55 U/L 08/13/2024 5:39 PM SAW FEEDER [facility] AST 15 5 - 34 U/L 08/13/2024 5:39 PM SAW FEEDER [facility] Protein Total 6.8 6.4 - 8.3 gm/dL 08/13/2024 5:39 PM SAW FEEDER [facility] Albumin 2.6(L) 3.4 - 5.0 gm/dL 08/13/2024 5:39 PM SAW FEEDER [facility] Bilirubin Total 0.2 0.2 - 1.2 mg/dL 08/13/2024 5:39 PM [facility] eGFR by CKD-EPI 80(L) >=90 mL/min/1.7 3 m2 08/13/2024 5:39 PM SAW FEEDER [facility] Blood BLOOD SPECIMEN / Unknown Venipuncture / Unknown 08/13/2024 5:08 PM SAW FEEDER 08/13/2024 5:21 PM SAW FEEDER Alexus Ramirez MD LAB - CHEMISTRY MICHAEL MONTGOMERY Performing Organization Address City/[facility]/ZIP Co de Phone Number [facility] [address] [place], [place] [id number] * PHOSPHORUS BLOOD (08/13/2024 5:08 PM SAW FEEDER) Phosphorus 3.3 2.5 - 4.5 mg/dL 08/13/2024 5:39 PM SAW FEEDER [facility] Blood BLOOD SPECIMEN / Unknown Venipuncture / Unknown 08/13/2024 5:08 PM SAW FEEDER 08/13/2024 5:21 PM SAW FEEDER Alexus Ramirez MD LAB - CHEMISTRY MICHAEL MONTGOM[place] Performing Organization Address City/[facility]/ZIP Co de Phone Number [facility] [address] [place], [place] [phone] * MAGNESIUM BLOOD (08/13/2024 5:08 PM SAW FEEDER) Magnesium 2.0 1.6 - 2.6 mg/dL 08/13/2024 5:39 PM SAW FEEDER [facility] Blood BLOOD SPECIMEN / Unknown Venipuncture / Unknown 08/13/2024 5:08 PM SAW FEEDER 08/13/2024 5:21 PM SAW FEEDER Alexus Ramirez MD LAB - CHEMISTRY MICHAEL MONTGOMERY Performing Organization Address [facility] Co de Phone Number [facility] [address] [place] [address] * LIPASE BLOOD (08/13/2024 5:08 PM SAW FEEDER) Lipase 25 <60 U/L 08/13/2024 5:39 PM SAW FEEDER [facility] Blood BLOOD SPECIMEN / Unknown Venipuncture / Unknown 08/13/2024 5:08 PM SAW FEEDER 08/13/2024 5:21 PM SAW FEEDER Alexus Ramirez MD LAB - CHEMISTRY MICHAEL MONTGOMERY Performing Organization Address [facility] de Phone Number [facility] [address] [place] [address] * LACTIC ACID BLOOD (08/13/2024 5:08 PM SAW FEEDER) Lactic Acid 1.5 <=2.0 mmol/L 08/13/2024 5:39 PM SAW FEEDER [facility] Blood BLOOD SPECIMEN / Unknown Venipuncture / Unknown 08/13/2024 5:08 PM SAW FEEDER 08/13/2024 5:21 PM SAW FEEDER Alexus Ramirez MD LAB - CHEMISTRY MICHAEL MONTGOMERY Performing Organization Address [facility] de Phone Number [facility] [address] [place] [phone] * (ABNORMAL) BLOOD GASES ARTERIAL (08/13/2024 4:16 PM SAW FEEDER) pH Arterial 7.47(H) 7.35 - 7.45 pH 08/13/2024 4:34 PM SAW FEEDER [facility] pO2 Arterial 99 80 - 100 mmHg 08/13/2024 4:34 PM SAW FEEDER [facility] pCO2 Arterial 39 35 - 45 mmHg 08/13/2024 4:34 PM SAW FEED[facility] RESP THERAPY HCO3 Arterial 28.4(H) 22.0 - 26.0 mmol/L 08/13/2024 4:34 PM [facility] RESP THERAPY BE Arterial 4.5(H) -2.0 - 2.0 mmol/L 08/13/2024 4:34 PM [facility] RESP THERAPY O2 Saturation Arterial 99 90 - 100 % 08/13/2024 4:34 PM [facility] RESP THERAP[facility] Sample Site Right RA 08/13/2024 4:34 PM [facility] RESP THERAPY Mode APVcmv 08/13/2024 4:34 PM [facility] RESP THERAP[facility] O2 Device VENT 08/13/2024 4:34 PM [facility] RESP THERAP[facility] FI O2 50.0 % 08/13/2024 4:34 PM [facility] RESP THERAPY Mechanical Tidal Volume (mL) 380 08/13/2024 4:34 PM [facility] RESP THERAP[facility] Mechanical Respiratory Rate (bpm) 22 08/13/2024 4:34 PM [facility] RESP THERAP[facility] PEEP (cmH2O) 10 08/13/2024 4:34 PM [facility] RESP THERAPY Blood, arterial ARTERIAL BLOOD SPECIMEN / Unknown 08/13/2024 4:16 PM [facility]ER 08/13/2024 4:16 PM [facility] Alexus Ramirez MD LAB - BLOOD GASES OR DERABLES [facility] RESP THERAPY [id number] [phone] * XR CHEST 1VW PORTABLE (08/13/2024 4:04 PM [facility]W FEEDER) Anatomical Region Laterality Modality Chest Computed Radiogr aphy 08/13/2024 4:10 PM [facility]ER Impressions 08/13/2024 4:12 PM [facility]ER IMPRESSION: Multiple tubing placements as noted above. Subtle linear streak is present in the left lung. Also the diaphragm.? Atelectasis or scarring. Unfortunately, we have no previous chest imaging studies available at this time. > Interpreting Provider: Ko Olguin MD on 08/13/2024 4:12 PM Narrative 08/13/2024 4:12 PM SAW FEEDER PROCEDURE: XR CHEST 1VW PORTABLE DATE/TIME OF [...] to the level of the right atrium. handle machine operator wires obscure the chest bilaterally. Heart [...] extendingto the level of the right atrium. handle machine operator wires obscure the chest bilaterally. Heart [...] * IMMUNOFLUORESCENT STUDY DERM (07/01/2023 3:33 AM SAW FEEDER) Case Report Dermatopathol ogmarcell Report Case: [id number] Authorizing Provider: Kendrick Christopher MD Collected: 07/01/2023 03:33 AM Ordering Location: [facility] DermPath Lab Received: 07/03/2023 12:13 PM Pathologist: Bella Schwab MD Specimen: Skin, right superior han 3:46 PM [facility] Final Diagnosis Specimen A. SKIN, right superior han: COLLOID BODIES (L98.9) (see microscopic description) (see fixed tissue results) 3:46 PM [facility] DERMATOPATHOLOGY LABORAT[facility] Direct Immunofluorescence Report - Specimen A Specimen A IgA IgM IgG C3 CollV Fibrinogen Epidermis Negative Negative Negative Negative Negative Negative Basement Membrane Negative Negative Negative Negative 2+ Negative Vessels Negative Negative Negative Negative 2+ Negative Interstitium Colloid Colloid Colloid Negative Negative Non specific 3:46 PM [facility] Clinical History Rash; R/O Leukocytoclas tic Vasculitis, Livedo Reticularis 3:46 PM [facility] DERMATOPATHOLOGY LABORATORY Gross Description Specimen A: Received is one Jatinder's media filled container labeled with the patient's name and designated right superior han. The specimen consists of a punch biopsy measuring 5x4x4 mm. The specimen is submitted in whole for direct immunofluores cence testing. 3:46 PM [facility] DERMATOPATHOLOGY LABORATORY Microscopic Description Specimen A. SKIN, [...] rubbing. See fixed tissue results. 3:46 PM [facility] DERMATOPATHOLOGY LABORATORY Disclaimer An external and internal positive and negative controls are appropriate for the histochemical , immunohistoch emical and immunofluores cence stain(s) in this case (if any), except where stated explicitly. The performance characteristi cs of the stain(s) cited in this report were developed and its performance characteristi c determined by the Dermatopathol ogy Laboratory at [facility], directed by Dr. Arnol Perea. These tests need not be, and therefore are not, approved by the [place] Food and Drug Administratio n. The tests are used for clinical purposes. Billing Codes Specimen Charges Stain Charges 77588 22408 05078 34265 13546 71893 1 1 1 1 1 1 3 3:46 PM [facility] Embedded Images 3:46 PM [facility] Pathology/Cytolo gy TISSUE SPECIMEN FROM SKIN / Unknown 07/01/2023 3:33 AM SAW FEEDER 07/03/2023 12:13 PM SAW FEEDER Kendrick Christopher MD LAB - PATHOLOGY/CY TOLOGY ORDERABLES DERMATOPATHOLOGY LABORATORY [facility] - Department of Dermatology [facility] Medicine [address] [place] [address], [address] [phone] * DERMATOPATHOLOGY (07/01/2023 3:33 AM SAW FEEDER) Case Report Dermatopathology Report Case: [id number] Authorizing Provider: Kendrick Christopher MD Collected: 07/01/2023 03:33 AM Ordering Location: [facility] DermPath Lab Received: 07/03/2023 12:12 PM Pathologist: Bella Schwab MD Specimen: Skin, right inferior knee 3:45 PM [facility] Final Diagnosis Specimen A. SKIN, right inferior knee: STASIS DERMATITIS (L30.8) DERMAL FIBROSIS (L90.5) (see microscopic description) 3:45 PM [facility] Clinical History Rash; R/O Leukocytoclastic Vasculitis, Livedo Reticularis 3 3:45 PM [facility] Gross Description Specimen A: Received is one formalin filled container labeled with the patient's name and designated right inferior knee. The specimen consists of a punch biopsy measuring 6x5x6 mm. Jar 0. 3 3:45 PM [facility] DERMATOPATHOLOGY LABORATORY Microscopic Description Specimen A. SKIN, [...] were obtained and reviewed. 3 3:45 PM [facility] DERMATOPATHOLOGY LABORATORY Disclaimer An external and internal positive and negative controls are appropriate for the histochemical, immunohistochemical and immunofluorescence stain(s) in this case (if any), except where stated explicitly. The performance characteristics of the stain(s) cited in this report were developed and its performance characteristic determined by the Dermatopathology Laboratory at [facility], directed by Dr. Arnol Perea. These tests need not be, and therefore are not, approved by the [place] Food and Drug Administration. The tests are used for clinical purposes. Billing Codes Specimen Charges Stain Charges 70488 1 64958 1 3 3:45 PM [facility] DERMATOPATHOLOGY LABORATORY Embedded Images 3 3:45 PM [facility] DERMATOPATHOLOGY LABORATORY Pathology/Cytolo gy TISSUE SPECIMEN FROM SKIN / Unknown 07/01/2023 3:33 AM SAW FEEDER 07/03/2023 12:12 PM SAW FEEDER Kendrick Christopher MD LAB - PATHOLOGY/CY TOLOGY ORDERABLES DERMATOPATHOLOGY LABORATORY [facility] - Department of Dermatology [facility] [address] [place] [address], [address] [phone] Care Teams Databases Software Consultant Relationship Specialty Start Date End Date Kishor Saleh MD [address] [place] [address] [address] [place] [id number] PCP - General Internal Medicine 07/31/23
--- OUTSIDE RECORDS SUMMARY | 2024-10-03 04:20 | XMS_ITS | Encounter Summary ---
Author Organization [facility] Address [address] [place] [address] Care Team Providers Care Drill Runner Helper Name Role Phone Tiffany Cox MD Primary Care Provider Unavailable Kishor Saleh MD Primary Care Provider Encounter Details Date Type Department Care Team (Late st Contact Info) Description 07/03/2023 Lab Requisition [facility] - DermPath Lab [address] [place] [phone] [place] [address] [facility] [address] [place] [id number] Social History Tobacco Use Types Packs/Day [...] Under Investigation 08/13/2024 08/13/2024 08/13/2024 11:30 PM OPEN CUT EXAMINER documented as of this encounter Care Teams Drill Runner Helper Relationship Specialty Start Date End Date Tiffany Cox MD PCP - General Internal Medicine 05/16/13 07/30/23 Kishor Saleh MD [address] [place] [address] DR [address] [place] [id number] PCP - General Internal Medicine 07/31/23 documented as of this encounter
--- OUTSIDE RECORDS SUMMARY | 2024-10-03 04:20 | XMS_ITS | Clinical Summary ---
Author Organization [facility] Address [address] [place] [address] Phone Care Team Providers Care Lab Support Technician Name Role Phone Masoud Hayes MD Primary Care Provider Allergies Active Allergy [...] mouth daily. 30 Tablet 08/13/2022 2:47 PM LOOP CUTTER 3 Active amLODIPine (NORVASC) 2.5 mg tablet Take 1 Tablet (2.5 mg) by mouth daily in the morning. 90 Tablet 05/29/2023 5:55 PM CDT 3 Active cyclobenzaprine (FLEXERIL) 5 mg Tablet TAKE 1-2 TABLETS BY MOUTH NIGHTLY TO REDUCE MUSCLE CRAMPS 60 Tablet 3 07/10/2023 3:38 PM LOOP CUTTER 3 Active hydroxychloroqu ine (PLAQUENIL) 200 mg tablet TAKE 2 TABLETS BY MOUTH ONCE DAILY 60 Tablet 3 07/10/2023 3:38 PM LOOP CUTTER 3 Active mycophenolate mofetil (CELLCEPT) 500 mg tablet TAKE 3 TABLETS BY MOUTH TWICE DAILY 180 Tablet 4 07/10/2023 3:38 PM LOOP CUTTER 3 Active insulin glargine (LANTUS) 100 unit/mL [...] for pain 30 Tablet 07/13/2024 12:19 PM LOOP CUTTER 4 Active methylPREDNISol one (Medrol, Marvel,) 4 [...] 3 Active fluticasone propionate (FLONASE) 50 mcg/spray [place], Suspension nasal inhaler Administer 2 Sprays in each nostril 1 time daily as needed. 3 Active folic acid (FOLVITE) 1 mg tablet 4 Active gabapentin (NEURONTIN) 300 mg capsule 4 Active glucagon (BAQSIMI) 3 mg/spray [place], Non-Aerosol Administer 1 [place] in each nostril. 4 Active insulin glargine-yfgn [...] daily. 120 Tablet 3 09/11/2024 3:51 PM LOOP CUTTER 4 Active venlafaxine (EFFEXOR XR) 150 mg Extended Release 24 hour capsule Take 1 capsule (150 mg total) by mouth daily 30 Capsule 07/13/2024 12:19 PM LOOP CUTTER 4 Active tirzepatide (Mounjaro) 10 mg/0.5 mL Pen Injector Inject 10 mg under the skin every 7 days 2 mL 3 09/29/2024 4:41 PM LOOP CUTTER 4 Active Active Problems Patient Care Coordination No te Formatting of this note migh t be different from the original. Hammer Runner: Dr. 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 Not on file Not on file Not on file Last Filed Vital Signs Vital Sign Reading Time Taken Comments Blood Pressure 128/90 06/21/2024 10:51 AM LOOP CUTTER Pulse 82 03/22/2012 2:23 PM CDT Temperature - - Respiratory Rate 18 03/22/2012 2:23 PM CDT Oxygen Saturation 97% 03/22/2012 1:51 PM CDT Inhaled Oxygen Concentration - - Weight 141.2 kg (311 lb 3.2 oz) 024 10:51 AM LOOP CUTTER Height 167.6 cm (5' 6 ) 05/17/2024 [...] PAP (05/17/2024 4:26 PM CDT) COMMENT (PAP): [facility] Comment: This order for age-based cervical cancer and STI screening follows ACOG guidelines(PB 168, 140, XDU627). See individual assays for performing site location. CLINICAL INFORMATION [facility] Comment:None given LAST MENSTRUAL PERIOD [facility] [place] Comment:10/02/2023 PREV PAP: [facility] Comment:NONE GIVEN PREV BX: [facility] Comment:NONE GIVEN SOURCE [facility] Comment:Endocervix ADEQUACY: [facility] Comment: Satisfactory for evaluation. Endocervical/transformation zone component absent. PAP INTERP [facility] [place] Comment: Cytology Results: Negative for intraepithelial lesion or malignancy. COMMENT (PAP TEST) [facility] [place] Comment: This Pap test has been evaluated with computer assisted technology. BUSINESS TRAVEL CONSULTANT: Ni Ramirez Comment: MEF, CT(ASCP) CT screening location: [place] [address] [place] [address] EXPLANATORY NOTE Que CogniscanRikki Ramirez Comment: EXPLANATORY NOTE: The Pap is [...] information. HPV E6/E7 Not Detected Not Detected bluebird bioRikki Ramirez Comment: Methodology: Take Out Waiter-Mediated Amplification This assay detects E6/E7 viral messenger RNA (mRNA) from 14 high-risk HPV types (16,18,31,33,35,39,45,51,52,56,58,59,66,68). Cervical sources are required for HPV testing. If a vaginal source from a patient who has had a total hysterectomy with removal of cervix was submitted, please contact the testing laboratory for alternative testing options. For additional information, please refer to http://education.Signdat/faq/POH109b4 (This link if provided for information/ educational purposes only.) Test Performed at: [facility] [address] [place] [address] Torin GUZMAN Genital SWAB OF ENDOCERVIX / Unknown 05/17/2024 4:26 PM CDT 05/18/2024 3:48 AM CDT us Kendrick Teague MD PATHOLOGY/CYTOLOGY ORDERABLE S Final Result [facility] [phone] [facility] [address] [place] [address] from Last 3 Months or Most Recently Relevant to Health Maintenance Insurance [employer] [facility] [employer] [id number] RX [employer] Member Subscriber Plan / Payer (Ef fective 2023-Present) Name:Walt Huitron Relation to Subscriber:Self Name:Walt Huitron Subscriber ID:Not on file Payer ID:Not on file Group ID:[id number] Type:RX Commercial Address: [address] [employer] (INTERNAL) [facility] Care Teams Lab Support Technician Relationship Specialty Start Date End Date Masoud Hayes MD PCP - General Internal Medicine 03/08/12
--- OUTSIDE RECORDS SUMMARY | 2024-10-03 04:20 | XMS_ITS | Encounter Summary ---
Author Organization [facility] Address [address] [facility] [place] [address] Care Team Providers Care Film Processing Shift Supervisor Name Role Phone Tiffany Cox MD Primary Care Provider Unavailable Kishor Saleh MD Primary Care Provider Encounter Details Date Type Department Care Team (Late st Contact Info) Description 07/03/2023 Lab Requisition [facility] Lab [address] [place] [phone] [place] [address] [address] [place] [address] Social History Tobacco Use Types Packs/Day [...] Under Investigation 08/13/2024 08/13/2024 08/13/2024 11:30 PM SOFTWARE REQUIREMENTS ENGINEER documented as of this encounter Care Teams Film Processing Shift Supervisor Relationship Specialty Start Date End Date Tiffany Cox MD PCP - General Internal Medicine 05/16/13 07/30/23 Kishor Saleh MD [address] [place] [address] [address] [place] [id number] PCP - General Internal Medicine 07/31/23 documented as of this encounter
--- OUTSIDE RECORDS SUMMARY | 2024-10-03 04:20 | XMS_ITS | Clinical Summary ---
Author Organization [facility] Address [address] [place] [address] Care Team Providers Care Topology Teacher Name Role Phone Kishor Saleh MD Primary Care Provider [phone] Source Comments [facility],non-owned Affiliates and Associated Physician Practices is amultiple site organization consisting of ambulatory clinics and hospital sitesin [place], [place] and [place]. This disclosure is being madepursuant to the Care Everywhere program and may not contain all information available regarding this patient. Last updated 18.[facility] Allergies Active Allergy Reactions Criticality Noted Date [...] fluticasone propionate (Flonase) 50 MCG/ACT nasal spray [facility] 2 (two) sprays into each nostril once [...] Active vitamin D, ergocalciferol, (Drisdol) 1.25 MG (24658 UT) capsule Take 1 (one) capsule by [...] Department Care Team Description 08/13/2024 3:43 PM TRACK LAYING EQUIPMENT OPERATOR - 08/18/2024 5:19 PM TRACK LAYING EQUIPMENT OPERATOR Hospital Encounter DP 6N Telemetry [address] [place] [address] Alexus Ramirez MD Ramgopal, Britney Martin, MD [...] any time in the past 12 [place], were you homeless or living in a intermediate (including now)? No 08/15/2024 Sex and Gender Information Value Date Recorded Sex Assigned at Not on file Gender Identity Not on file Sexual Orientation Not on file Last Filed Vital Signs Vital Sign Reading Time Taken Comments Blood Pressure 154/92 08/18/2024 12:25 PM TRACK LAYING EQUIPMENT OPERATOR Pulse 102 08/18/2024 12:25 PM TRACK LAYING EQUIPMENT OPERATOR Temperature 36.7 C (98.1 F) 08/18/2024 12:25 PM TRACK LAYING EQUIPMENT OPERATOR Respiratory Rate 23 08/18/2024 12:2 5 PM TRACK LAYING EQUIPMENT OPERATOR Oxygen Saturation 90% 08/18/2024 12: 25 PM TRACK LAYING EQUIPMENT OPERATOR Inhaled Oxygen Concentration 21% 08/18/2024 2 :00 PM TRACK LAYING EQUIPMENT OPERATOR Weight 132.6 kg (292 lb 4.8 oz) 08/18/2024 4:00 AM TRACK LAYING EQUIPMENT OPERATOR Height 167.6 cm (5' 6 ) 08/13/2024 5:14 PM TRACK LAYING EQUIPMENT OPERATOR Body Mass Index 47.18 08/13/2024 5:14 PM TRACK LAYING EQUIPMENT OPERATOR Plan of Treatment Health Maintenance Due Date [...] CARDIAC RHYTHM STRIP ORDER 08/23/2024 2:41 AM TRACK LAYING EQUIPMENT OPERATOR HOME O2 EVAL (DESATURATION SCREEN) Routine 08/18/2024 10:39 AM TRACK LAYING EQUIPMENT OPERATOR GLUCOSE - POINT OF CARE Routine 08/18/2024 7:46 AM TRACK LAYING EQUIPMENT OPERATOR GLUCOSE - POINT OF CARE Routine 08/17/2024 9:47 PM TRACK LAYING EQUIPMENT OPERATOR GLUCOSE - POINT OF CARE Routine 08/17/2024 5:03 PM TRACK LAYING EQUIPMENT OPERATOR GLUCOSE - POINT OF CARE Routine 08/17/2024 12:36 PM TRACK LAYING EQUIPMENT OPERATOR GLUCOSE - POINT OF CARE Routine 08/17/2024 7:48 AM TRACK LAYING EQUIPMENT OPERATOR CBC W/O DIFFERENTIAL AM Draw 08/17/2024 4:16 AM TRACK LAYING EQUIPMENT OPERATOR BASIC METABOLIC PANEL (CALCIUM TOTAL) AM Draw 08/17/2024 4:16 AM TRACK LAYING EQUIPMENT OPERATOR GLUCOSE - POINT OF CARE Routine 08/17/2024 12:18 AM TRACK LAYING EQUIPMENT OPERATOR VANCOMYCIN LEVEL TROUGH Timed 08/16/2024 6:35 PM TRACK LAYING EQUIPMENT OPERATOR GLUCOSE - POINT OF CARE Routine 08/16/2024 6:43 AM TRACK LAYING EQUIPMENT OPERATOR CBC W/O DIFFERENTIAL AM Draw 08/16/2024 4:59 AM TRACK LAYING EQUIPMENT OPERATOR BASIC METABOLIC PANEL (CALCIUM TOTAL) AM Draw 08/16/2024 4:59 AM TRACK LAYING EQUIPMENT OPERATOR GLUCOSE - POINT OF CARE Routine 08/15/2024 10:15 PM TRACK LAYING EQUIPMENT OPERATOR GLUCOSE - POINT OF CARE Routine 08/15/2024 4:36 PM TRACK LAYING EQUIPMENT OPERATOR GLUCOSE - POINT OF CARE Routine 08/15/2024 2:22 PM TRACK LAYING EQUIPMENT OPERATOR GLUCOSE - POINT OF CARE Routine 08/15/2024 12:24 PM TRACK LAYING EQUIPMENT OPERATOR CULTURE BLOOD Timed 08/15/2024 8:54 AM TRACK LAYING EQUIPMENT OPERATOR CULTURE BLOOD Timed 08/15/2024 8:45 AM TRACK LAYING EQUIPMENT OPERATOR GLUCOSE - POINT OF CARE Routine 08/15/2024 5:48 AM TRACK LAYING EQUIPMENT OPERATOR CBC W/O DIFFERENTIAL AM Draw 08/15/2024 3:33 AM TRACK LAYING EQUIPMENT OPERATOR BASIC METABOLIC PANEL (CALCIUM TOTAL) AM Draw 08/15/2024 3:33 AM TRACK LAYING EQUIPMENT OPERATOR GLUCOSE - POINT OF CARE Routine 08/14/2024 11:41 PM TRACK LAYING EQUIPMENT OPERATOR GLUCOSE - POINT OF CARE Routine 08/14/2024 6:04 PM TRACK LAYING EQUIPMENT OPERATOR GLUCOSE - POINT OF CARE Routine 08/14/2024 12:04 PM TRACK LAYING EQUIPMENT OPERATOR GLUCOSE - POINT OF CARE Routine 08/14/2024 10:07 AM TRACK LAYING EQUIPMENT OPERATOR GLUCOSE - POINT OF CARE Routine 08/14/2024 9:14 AM TRACK LAYING EQUIPMENT OPERATOR GLUCOSE - POINT OF CARE Routine 08/14/2024 8:22 AM TRACK LAYING EQUIPMENT OPERATOR GLUCOSE - POINT OF CARE Routine 08/14/2024 7:16 AM TRACK LAYING EQUIPMENT OPERATOR GLUCOSE - POINT OF CARE Routine 08/14/2024 6:28 AM TRACK LAYING EQUIPMENT OPERATOR GLUCOSE - POINT OF CARE Routine 08/14/2024 5:31 AM TRACK LAYING EQUIPMENT OPERATOR GLUCOSE - POINT OF CARE Routine 08/14/2024 4:30 AM TRACK LAYING EQUIPMENT OPERATOR GLUCOSE - POINT OF CARE Routine 08/14/2024 3:27 AM TRACK LAYING EQUIPMENT OPERATOR HEMOGLOBIN A1C Routine 08/14/2024 3:27 AM TRACK LAYING EQUIPMENT OPERATOR CBC W/O DIFFERENTIAL AM Draw 08/14/2024 3:27 AM TRACK LAYING EQUIPMENT OPERATOR BASIC METABOLIC PANEL (CALCIUM TOTAL) AM Draw 08/14/2024 3:27 AM TRACK LAYING EQUIPMENT OPERATOR GLUCOSE - POINT OF CARE Routine 08/14/2024 2:33 AM TRACK LAYING EQUIPMENT OPERATOR GLUCOSE - POINT OF CARE Routine 08/14/2024 1:29 AM TRACK LAYING EQUIPMENT OPERATOR GLUCOSE - POINT OF CARE Routine 08/14/2024 12:23 AM TRACK LAYING EQUIPMENT OPERATOR GLUCOSE - POINT OF CARE Routine 08/13/2024 8:07 PM TRACK LAYING EQUIPMENT OPERATOR STREP PNEUMONIAE ANTIGEN URINE Routine 08/13/2024 5:17 PM TRACK LAYING EQUIPMENT OPERATOR LEGIONELLA ANTIGEN URINE Routine 08/13/2024 5:17 PM TRACK LAYING EQUIPMENT OPERATOR RESPIRATORY PANEL WITH SARS-COV-2 BY PCR (STL) Routine 08/13/2024 5:09 PM TRACK LAYING EQUIPMENT OPERATOR CULTURE BLOOD Timed 08/13/2024 5:09 PM TRACK LAYING EQUIPMENT OPERATOR CULTURE MRSA Routine 08/13/2024 5:09 PM TRACK LAYING EQUIPMENT OPERATOR DIFFERENTIAL MANUAL STAT 08/13/2024 5 :08 PM TRACK LAYING EQUIPMENT OPERATOR PTT STAT 08/13/2024 5:08 PM TRACK LAYING EQUIPMENT OPERATOR PT-INR STAT 08/13/2024 5:08 PM TRACK LAYING EQUIPMENT OPERATOR PHOSPHORUS BLOOD STAT 08/13/2024 5:08 PM TRACK LAYING EQUIPMENT OPERATOR MAGNESIUM BLOOD STAT 08/13/2024 5:08 PM TRACK LAYING EQUIPMENT OPERATOR LIPASE BLOOD STAT 08/13/2024 5:08 PM TRACK LAYING EQUIPMENT OPERATOR LACTIC ACID BLOOD STAT 08/13/2024 5:0 8 PM TRACK LAYING EQUIPMENT OPERATOR COMPREHENSIVE METABOLIC PANEL STAT 08/13/2024 5:08 PM TRACK LAYING EQUIPMENT OPERATOR CBC W AUTO DIFFERENTIAL STAT 08/13/2024 5:08 PM TRACK LAYING EQUIPMENT OPERATOR B-TYPE NATRIURETIC PEPTIDE STAT 08/13/2024 5:08 PM TRACK LAYING EQUIPMENT OPERATOR BCID PANEL Routine 08/13/2024 5:08 PM TRACK LAYING EQUIPMENT OPERATOR CULTURE BLOOD Timed 08/13/2024 5:08 PM TRACK LAYING EQUIPMENT OPERATOR GLUCOSE - POINT OF CARE Routine 08/13/2024 4:48 PM TRACK LAYING EQUIPMENT OPERATOR BLOOD GASES ARTERIAL STAT 08/13/2024 4:16 PM TRACK LAYING EQUIPMENT OPERATOR XR CHEST 1VW PORTABLE STAT 08/13/2024 4:04 PM TRACK LAYING EQUIPMENT OPERATOR Acute hypoxic respiratory failure (HCC) from Last 3 Months Results * CARDIAC RHYTHM STRIP ORDER (08/23/2024 2:41 AM TRACK LAYING EQUIPMENT OPERATOR) Narrative 08/23/2024 2:41 AM TRACK LAYING EQUIPMENT OPERATOR Ordered by an unspecified provider. Scanned Document CARDIAC SERVICES ORD ERABLES * GLUCOSE - POINT OF CARE (08/18/2024 7:46 AM TRACK LAYING EQUIPMENT OPERATOR) Only the most recent of28 resultswithin the time period is included. Glucose WB/POC 81 70 - 99 mg/dL 08/18/2024 7:51 AM TRACK LAYING EQUIPMENT OPERATOR [facility] Specimen Type Cap Fingerstick 2024 7:51 AM TRACK LAYING EQUIPMENT OPERATOR [facility] Blood BLOOD SPECIMEN / Unknown 08/18/2024 7:46 AM TRACK LAYING EQUIPMENT OPERATOR 08/18/2024 7:51 AM TRACK LAYING EQUIPMENT OPERATOR Young Mcwilliams MD LAB - POINT OF CARE ORDERABLES [facility] [address] [place] [address] * (ABNORMAL) CBC W/O DIFFERENTIAL (08/17/2024 4:16 AM TRACK LAYING EQUIPMENT OPERATOR) Only the most recent of4 resultswithin the time period is included. WBC 16.3(H) 4.0 - 10.7 x10E9/L 08/17/2024 4:44 AM TRACK LAYING EQUIPMENT OPERATOR [facility] RBC Count 3.51(L) 3.90 - 5.20 x10E12/L 08/17/2024 4:44 AM [facility] Hemoglobin 10.3(L) 11.9 - 15.8 g/dL 08/17/2024 4:44 AM [facility] Hematocrit 32.6(L) 34.8 - 46.1 % 08/17/2024 4:44 AM [facility] MCV 92.9 80.0 - 98.0 fL 08/17/2024 4:44 AM [facility] MCH 29.3 26.7 - 33.6 pg 08/17/2024 4:44 AM [facility] MCHC 31.6(L) 31.7 - 36.3 g/dL 08/17/2024 4:44 AM [facility] RDW-CV 15.8(H) 11.3 - 14.8 % 08/17/2024 4:44 AM [facility] Platelet Count 478(H) 150 - 420 x10E9/L 08/17/2024 4:44 AM [facility] MPV 10.4 7.8 - 11.4 fL 08/17/2024 4:44 AM [facility] NRBC 0.8(H) <=0.0 /100 WBC 08/17/2024 4:44 AM [facility] Blood BLOOD SPECIMEN / Unknown Venipuncture / Unknown 08/17/2024 4:16 AM TRACK LAYING EQUIPMENT OPERATOR 08/17/2024 4:30 AM [facility] Alexus Ramirez MD LAB - HEMATOLOGY ORD ERABLES [facility] [address] [place] [address] * (ABNORMAL) BASIC METABOLIC PANEL (CALCIUM TOTAL) (08/17/2024 4:16 AM TRACK LAYING EQUIPMENT OPERATOR) Only the most recent of4 resultswithin the time period is included. Glucose 139(H) 70 - 99 mg/dL 08/17/2024 4:53 AM [facility] Sodium 140 136 - 145 mmol/L 08/17/2024 4:53 AM [facility] Potassium 3.5 3.5 - 5.1 mmol/L 08/17/2024 4:53 AM [facility] Chloride 108(H) 98 - 107 mmol/L 08/17/2024 4:53 AM [facility] CO2 24 22 - 29 mmol/L 08/17/2024 4:53 AM [facility] Calcium 8.9 8.4 - 10.4 mg/dL 08/17/2024 4:53 AM [facility] Anion Gap 8 6 - 16 mmol/L 08/17/2024 4:53 AM [facility] BUN 15 5.3 - 18.7 mg/dL 08/17/2024 4:53 AM [facility] Creatinine 0.65 0.57 - 1.11 mg/dL 08/17/2024 4:53 AM [facility] eGFR by CKD-EPI >90 >=90 mL/min/1.7 3 m2 08/17/2024 4:53 AM [facility] Blood BLOOD SPECIMEN / Unknown Venipuncture / Unknown 08/17/2024 4:16 AM TRACK LAYING EQUIPMENT OPERATOR 08/17/2024 4:30 AM TRACK LAYING EQUIPMENT OPERATOR Alexus Ramirez MD LAB - CHEMISTRY MICHAEL MONTGOMERY Performing Organization Address City/[facility] Co de Phone Number [facility] [address] [place] [address] * (ABNORMAL) VANCOMYCIN LEVEL TROUGH (08/16/2024 6:35 PM TRACK LAYING EQUIPMENT OPERATOR) [facility] Vancomycin Trough 6.1(L) 10.0 - 20.0 ug/mL 08/16/2024 7:22 PM TRACK LAYING EQUIPMENT OPERATOR [facility] Blood BLOOD SPECIMEN / Unknown Venipuncture / Unknown 08/16/2024 6:35 PM TRACK LAYING EQUIPMENT OPERATOR 08/16/2024 7:02 PM TRACK LAYING EQUIPMENT OPERATOR Anatoliy Wyman MD LAB - CHEMISTRY ORDMarkos MONTGOMERY Performing Organization Address [facility] Co de Phone Number [facility] [address] [place], [place] [address] * CULTURE BLOOD (08/15/2024 8:54 AM TRACK LAYING EQUIPMENT OPERATOR) Only the most recent of4 resultswithin the time period is included. [facility] Signature Culture No growth day 5 LORENZO 08/20/2024 1:31 PM TRACK LAYING EQUIPMENT OPERATOR [facility] Blood PERIPHERAL BLOOD / Unknown Venipuncture / Unknown 08/15/2024 8:54 AM TRACK LAYING EQUIPMENT OPERATOR 08/15/2024 9:13 AM TRACK LAYING EQUIPMENT OPERATOR Amadeo Milner MD LAB - MICROBIOLOGY O RDERABLES [facility] [address] [place] [address], [facility] [phone] * (ABNORMAL) HEMOGLOBIN A1C (08/14/2024 3:27 AM TRACK LAYING EQUIPMENT OPERATOR) Hemoglobin A1c 10.1(H) <5.7 % 08/14/2024 3:48 AM TRACK LAYING EQUIPMENT OPERATOR [facility] Estimated Average Glucose 243 mg/dL 08/14/2024 3:48 AM TRACK LAYING EQUIPMENT OPERATOR [facility] Blood BLOOD SPECIMEN / Unknown Venipuncture / Unknown 08/14/2024 3:27 AM TRACK LAYING EQUIPMENT OPERATOR 08/14/2024 3:37 AM TRACK LAYING EQUIPMENT OPERATOR Narrative [facility] - 08/14/2024 3:48 AM TRACK LAYING EQUIPMENT OPERATOR HbA1c Interpretation: Normal: < 5.7% Pre-diabetes: [...] exceeds 5% in the specimen. The [place] [employer] assay for the measurement of HbA1c is a National Glycohemoglobin Standardization Program (NGSP) certified method. Alexus Ramirez MD LAB - CHEMISTRY MIGUELMarkos MONTGOMERY Performing Organization Address City/[facility]/ZIP Co de Phone Number [facility] [address] [place] [address] * STREP PNEUMONIAE ANTIGEN URINE (08/13/2024 5:17 PM TRACK LAYING EQUIPMENT OPERATOR) Streptococcus pneumoniae Antigen Urine Negative Negative 08/14/2024 8:17 AM TRACK LAYING EQUIPMENT OPERATOR [facility] Urine URINE / Unknown Collection / Unknown 08/13/2024 5:17 PM TRACK LAYING EQUIPMENT OPERATOR 08/13/2024 5:22 PM TRACK LAYING EQUIPMENT OPERATOR Narrative [facility] - 08/14/2024 8:17 AM TRACK LAYING EQUIPMENT OPERATOR Patients who have received the Streptococcus [...] - MICROBIOLOGY Blayne BABCOCK Performing Organization Address [facility] Co de Phone Number [facility] [address] [place] [id number] [phone] * LEGIONELLA ANTIGEN URINE (08/13/2024 5:17 PM TRACK LAYING EQUIPMENT OPERATOR) Legionella Antigen Urine Negative Negative 08/14/2024 8:21 AM TRACK LAYING EQUIPMENT OPERATOR [facility] Urine URINE / Unknown Collection / Unknown 08/13/2024 5:17 PM TRACK LAYING EQUIPMENT OPERATOR 08/13/2024 5:22 PM TRACK LAYING EQUIPMENT OPERATOR Narrative [facility] - 08/14/2024 8:21 AM TRACK LAYING EQUIPMENT OPERATOR This assay detects Legionella pneumophila serogroup one (1) antigen. A negative test result does not rule out the possibility of Legionella infection due to other serogroups or species of Legionella. A positive result may indicate a recent or remote infection with serogroup 1. Alexus Ramirez MD LAB - MICROBIOLOGY O YOKO Performing Organization Address City/[facility]/ZIP Co de Phone Number [facility] [address] [place] [address], [facility] [phone] * (ABNORMAL) RESPIRATORY PANEL WITH SARS-COV-2 BY PCR (STL) (08/13/2024 5:09 PM TRACK LAYING EQUIPMENT OPERATOR) Adenovirus PCR Not detected Not detected 08/13/2024 11:30 PM TRACK LAYING EQUIPMENT OPERATOR [facility] Coronavirus 229E PCR Not detected Not detected 08/13/2024 11:30 PM TRACK LAYING EQUIPMENT OPERATOR [facility] Coronavirus HKU1 PCR Not detected Not detected 08/13/2024 11:30 PM TRACK LAYING EQUIPMENT OPERATOR [facility] Coronavirus NL63 PCR Not detected Not detected 08/13/2024 11:30 PM TRACK LAYING EQUIPMENT OPERATOR [facility] Coronavirus OC43 PCR Not detected Not detected 08/13/2024 11:30 PM TRACK LAYING EQUIPMENT OPERATOR [facility] COVID-19 PCR Not detected Not detected 08/13/2024 11:30 PM TRACK LAYING EQUIPMENT OPERATOR [facility] Human Metapneumovirus PCR Not detected Not detected 08/13/2024 11:30 PM TRACK LAYING EQUIPMENT OPERATOR [facility] Human Rhinovirus/Enterov irus PCR Not detected Not detected 08/13/2024 11:30 PM TRACK LAYING EQUIPMENT OPERATOR [facility] Influenza A PCR Not detected Not detected 08/13/2024 11:30 PM TRACK LAYING EQUIPMENT OPERATOR [facility] Influenza B PCR Not detected Not detected 08/13/2024 11:30 PM TRACK LAYING EQUIPMENT OPERATOR [facility] Parainfluenza Virus 1 PCR Not detected Not detected 08/13/2024 11:30 PM TRACK LAYING EQUIPMENT OPERATOR [facility] Parainfluenza Virus 2 PCR Not detected Not detected 08/13/2024 11:30 PM TRACK LAYING EQUIPMENT OPERATOR [facility] Parainfluenza Virus 3 PCR Not detected Not detected 08/13/2024 11:30 PM TRACK LAYING EQUIPMENT OPERATOR [facility] Parainfluenza Virus 4 PCR Not detected Not detected 08/13/2024 11:30 PM TRACK LAYING EQUIPMENT OPERATOR [facility] Respiratory Syncytial Virus PCR Detected(A) Not detected 08/13/2024 11:30 PM TRACK LAYING EQUIPMENT OPERATOR [facility] Bordetella parapertussis PCR Not detected Not detected 08/13/2024 11:30 PM TRACK LAYING EQUIPMENT OPERATOR [facility] Bordetella pertussis PCR Not detected Not detected 08/13/2024 11:30 PM TRACK LAYING EQUIPMENT OPERATOR [facility] Chlamydia pneumoniae PCR Not detected Not detected 08/13/2024 11:30 PM TRACK LAYING EQUIPMENT OPERATOR [facility] Mycoplasma pneumoniae PCR Not detected Not detected 08/13/2024 11:30 PM TRACK LAYING EQUIPMENT OPERATOR [facility] Microbiology SPECIMEN FROM NASOPHARYNGEAL STRUCTURE / Unknown Collection / Unknown 08/13/2024 5:09 PM TRACK LAYING EQUIPMENT OPERATOR 08/13/2024 5:20 PM TRACK LAYING EQUIPMENT OPERATOR Narrative [facility] - 08/13/2024 11:30 PM TRACK LAYING EQUIPMENT OPERATOR Contact and Droplet Precautions Required. This nucleic amplification assay has received FDA authorization via the [place] Pathway. Alexus Ramirez MD LAB - MICROBIOLOGY O YOKO [facility] [address] [place] [address], [facility] [phone] * CULTURE MRSA (08/13/2024 5:09 PM TRACK LAYING EQUIPMENT OPERATOR) Culture Negative for methicillin-resist ant Staphylococcus aureus (MRSA) LORENZO 08/15/2024 8:16 AM TRACK LAYING EQUIPMENT OPERATOR [facility] Microbiology SPECIMEN FROM NASAL FOSSAE / Unknown Collection / Unknown 08/13/2024 5:09 PM TRACK LAYING EQUIPMENT OPERATOR 08/13/2024 5:21 PM TRACK LAYING EQUIPMENT OPERATOR Alexus Ramirez MD LAB - MICROBIOLOGY O YOKO [facility] [address] [place] [address], [facility] [phone] * (ABNORMAL) BCID PANEL (08/13/2024 5:08 PM TRACK LAYING EQUIPMENT OPERATOR) Staphylococcus epidermidis Detected (A) Not detected 08/15/2024 2:03 AM TRACK LAYING EQUIPMENT OPERATOR [facility] MECA/C (Methicillin-Resi stance Gene) Detected (A) Not detected 08/15/2024 2:03 AM [facility] Comment:Results indicate met hicillin-resistant Staphylococcus epidermidis. Methicillin-resistance detected. Blood PERIPHERAL BLOOD / Unknown Venipuncture / Unknown 08/13/2024 5:08 PM TRACK LAYING EQUIPMENT OPERATOR 08/13/2024 5:19 PM TRACK LAYING EQUIPMENT OPERATOR Narrative [facility] - 08/15/2024 2:03 AM TRACK LAYING EQUIPMENT OPERATOR Blood Culture ID Panel performed by [facility] multiplex PCR. The Test panel includes: Gram [...] and MREJ (methicillin-resistance - MRSA), NDM ([place] [id number]), OXA-48-like (oxacillinase beta-lactamase),Ashly/B (vancomycin-resistance), VIM (Noa Intergrom-Encoded Metallo beta-lactamase). Alexus Ramirez MD LAB - MICROBIOLOGY O RDERABLES [facility] [address] [facility] [address] [place] [phone] * PTT (08/13/2024 5:08 PM TRACK LAYING EQUIPMENT OPERATOR) PTT 28.4 23.0 - 38.4 sec 08/13/2024 5:43 PM TRACK LAYING EQUIPMENT OPERATOR [facility] Blood BLOOD SPECIMEN / Unknown Venipuncture / Unknown 08/13/2024 5:08 PM TRACK LAYING EQUIPMENT OPERATOR 08/13/2024 5:21 PM TRACK LAYING EQUIPMENT OPERATOR Narrative [facility] - 08/13/2024 5:43 PM TRACK LAYING EQUIPMENT OPERATOR Heparin Therapeutic Range for PTT: 69.0 - 110.0 seconds. Alexus Ramirez MD LAB - COAGULATION OR DERABLES Performing Organization Address [facility] Co de Phone Number [facility] [id number] [place] [address] * PT-INR (08/13/2024 5:08 PM TRACK LAYING EQUIPMENT OPERATOR) PT 14.1 12.1 - 14.8 sec 08/13/2024 5:43 PM TRACK LAYING EQUIPMENT OPERATOR [facility] INR 1.1 0.9 - 1.1 08/13/2024 5:43 PM TRACK LAYING EQUIPMENT OPERATOR [facility] Blood BLOOD SPECIMEN / Unknown Venipuncture / Unknown 08/13/2024 5:08 PM TRACK LAYING EQUIPMENT OPERATOR 08/13/2024 5:21 PM TRACK LAYING EQUIPMENT OPERATOR Narrative [facility] - 08/13/2024 5:43 PM TRACK LAYING EQUIPMENT OPERATOR Conventional Warfarin Anticoagulant Therapy: INR Reference Range: 2.0-3.0 Intensive Warfarin Anticoagulant Therapy: INR Reference Range: 2.5-3.5 Alexus Ramirez MD LAB - COAGULATION OR DERABLES Performing Organization Address [facility] de Phone Number [facility] [address] [place] [phone] * (ABNORMAL) DIFFERENTIAL MANUAL (08/13/2024 5:08 PM TRACK LAYING EQUIPMENT OPERATOR) Neutrophil % 90(H) 41 - 74 % 08/13/2024 6:34 PM TRACK LAYING EQUIPMENT OPERATOR [facility] Lymphocyte % 4(L) 17 - 47 % 08/13/2024 6:34 PM [facility] Monocyte % 1(L) 3 - 11 % 08/13/2024 6:34 PM [facility] Basophil % 1 0 - 2 % 08/13/2024 6:34 PM [facility] Myelocyte % 3(H) 0% % 08/13/2024 6:34 PM [employer]MENT OPERATOR [facility] Promyelocyte % 1(H) 0% % 08/13/2024 6:34 PM [facility] Neutrophil Absolute 17.91(H) 1.60 - 7.50 x10E9/L 08/13/2024 6:34 PM [facility] Lymphocyte Absolute 0.80(L) 1.00 - 4.40 x10E9/L 08/13/2024 6:34 PM [facility] Monocyte Absolute 0.20 0.15 - 1.00 x10E9/L 08/13/2024 6:34 PM [facility] Basophil Absolute 0.20(H) 0.00 - 0.13 x10E9/L 08/13/2024 6:34 PM [facility] RBC Morphology REVIEWED 08/13/2024 6:34 PM [facility] Blood BLOOD SPECIMEN / Unknown Venipuncture / Unknown 08/13/2024 5:08 PM [employer] EQUIPMENT OPERATOR 08/13/2024 5:21 PM [employer] L[employer] EQUIPMENT OPERATOR Alexus Ramirez MD LAB - HEMATOLOGY ORD ERABLES [facility] [id number] [place] [address] * (ABNORMAL) CBC W AUTO DIFFERENTIAL (08/13/2024 5:08 PM [employer] LAYING EQUIPMENT OPERATOR) WBC 19.9(H) 4.0 - 10.7 x10E9/L 08/13/2024 6:34 PM [facility] RBC Count 3.41(L) 3.90 - 5.20 x10E12/L 08/13/2024 6:34 PM [facility] Hemoglobin 10.1(L) 11.9 - 15.8 g/dL 08/13/2024 6:34 PM [facility] Hematocrit 31.0(L) 34.8 - 46.1 % 08/13/2024 6:34 PM [facility] MCV 90.9 80.0 - 98.0 fL 08/13/2024 6:34 PM [facility] MCH 29.6 26.7 - 33.6 pg 08/13/2024 6:34 PM [facility] LABORATORY MCHC 32.6 31.7 - 36.3 g/dL 08/13/2024 6:34 PM [facility] RDW-CV 15.2(H) 11.3 - 14.8 % 08/13/2024 6:34 PM [facility] Platelet Count 340 150 - 420 x10E9/L 08/13/2024 6:34 PM TRACK LAYING EQUIPMENT OPERATOR [facility] MPV 11.4 7.8 - 11.4 fL 08/13/2024 6:34 PM TRACK LAYING EQUIPMENT OPERATOR [facility] Blood BLOOD SPECIMEN / Unknown Venipuncture / Unknown 08/13/2024 5:08 PM TRACK LAYING EQUIPMENT OPERATOR 08/13/2024 5:21 PM TRACK LAYING EQUIPMENT OPERATOR Alexus Ramirez MD LAB - HEMATOLOGY ORD ERABLES Performing Organization Address [facility] Co de Phone Number [facility] [address] [place] [address] * B-TYPE NATRIURETIC PEPTIDE (08/13/2024 5:08 PM TRACK LAYING EQUIPMENT OPERATOR) Pathologist [facility] [place] BNP 43 <=100 pg/mL 08/13/2024 5:45 PM [facility] Blood BLOOD SPECIMEN / Unknown Venipuncture / Unknown 08/13/2024 5:08 PM TRACK LAYING EQUIPMENT OPERATOR 08/13/2024 5:21 PM TRACK LAYING EQUIPMENT OPERATOR Alexus Ramirez MD LAB - CHEMISTRY ORDE RABLES Performing Organization Address [facility] de Phone Number [facility] [address] [place] [address] * (ABNORMAL) COMPREHENSIVE METABOLIC PANEL (08/13/2024 5:08 PM TRACK LAYING EQUIPMENT OPERATOR) Glucose 396(H) 70 - 99 mg/dL 08/13/2024 5:39 PM [facility] Sodium 135(L) 136 - 145 mmol/L 08/13/2024 5:39 PM [facility] Potassium 5.0 3.5 - 5.1 mmol/L 08/13/2024 5:39 PM [facility] Chloride 99 98 - 107 mmol/L 08/13/2024 5:39 PM [facility] CO2 26 22 - 29 mmol/L 08/13/2024 5:39 PM [facility] Calcium 9.2 8.4 - 10.4 mg/dL 08/13/2024 5:39 PM [facility] Anion Gap 10 6 - 16 mmol/L 08/13/2024 5:39 PM [facility] BUN 28(H) 5.3 - 18.7 mg/dL 08/13/2024 5:39 PM TRACK LAYING EQUIPMENT OPERATOR [facility] Creatinine 0.89 0.57 - 1.11 mg/dL 08/13/2024 5:39 PM [facility] Alkaline Phosphatase 111 40 - 150 U/L 08/13/2024 5:39 PM TRACK LAYING EQUIPMENT OPERATOR [facility] ALT 40 0 - 55 U/L 08/13/2024 5:39 PM TRACK LAYING EQUIPMENT OPERATOR [facility] AST 15 5 - 34 U/L 08/13/2024 5:39 PM [facility] Protein Total 6.8 6.4 - 8.3 gm/dL 08/13/2024 5:39 PM [facility] Albumin 2.6(L) 3.4 - 5.0 gm/dL 08/13/2024 5:39 PM [facility] Bilirubin Total 0.2 0.2 - 1.2 mg/dL 08/13/2024 5:39 PM [facility] eGFR by CKD-EPI 80(L) >=90 mL/min/1.7 3 m2 08/13/2024 5:39 PM TRACK LAYING EQUIPMENT OPERATOR [facility] Blood BLOOD SPECIMEN / Unknown Venipuncture / Unknown 08/13/2024 5:08 PM TRACK LAYING EQUIPMENT OPERATOR 08/13/2024 5:21 PM TRACK LAYING EQUIPMENT OPERATOR Alexus Ramirez MD LAB - CHEMISTRY ORDMarkos MONTGOMERY Performing Organization Address City/[facility]/ZIP Co de Phone Number [facility] [address] [place] [address] * PHOSPHORUS BLOOD (08/13/2024 5:08 PM TRACK LAYING EQUIPMENT OPERATOR) Phosphorus 3.3 2.5 - 4.5 mg/dL 08/13/2024 5:39 PM TRACK LAYING EQUIPMENT OPERATOR [facility] Blood BLOOD SPECIMEN / Unknown Venipuncture / Unknown 08/13/2024 5:08 PM TRACK LAYING EQUIPMENT OPERATOR 08/13/2024 5:21 PM TRACK LAYING EQUIPMENT OPERATOR Alexus Ramirez MD LAB - CHEMISTRY ORDMarkos MONTGOMERY Performing Organization Address City/[facility]/ZIP Co de Phone Number [facility] [address] [place] [address] * MAGNESIUM BLOOD (08/13/2024 5:08 PM TRACK LAYING EQUIPMENT OPERATOR) Pathologist [facility] [place] Magnesium 2.0 1.6 - 2.6 mg/dL 08/13/2024 5:39 PM TRACK LAYING EQUIPMENT OPERATOR [facility] Blood BLOOD SPECIMEN / Unknown Venipuncture / Unknown 08/13/2024 5:08 PM TRACK LAYING EQUIPMENT OPERATOR 08/13/2024 5:21 PM TRACK LAYING EQUIPMENT OPERATOR Alexus Ramirez MD LAB - CHEMISTRY MICHAEL MONTGOMERY Performing Organization Address City/[facility]/ZIP Co de Phone Number [facility] [address] [place] [phone] * LIPASE BLOOD (08/13/2024 5:08 PM TRACK LAYING EQUIPMENT OPERATOR) Pathologist [facility] [place] Lipase 25 <60 U/L 08/13/2024 5:39 PM TRACK LAYING EQUIPMENT OPERATOR [facility] Blood BLOOD SPECIMEN / Unknown Venipuncture / Unknown 08/13/2024 5:08 PM TRACK LAYING EQUIPMENT OPERATOR 08/13/2024 5:21 PM TRACK LAYING EQUIPMENT OPERATOR Alexus Ramirez MD LAB - CHEMISTRY MICHAEL MONTGOMERY Performing Organization Address [facility] Co de Phone Number [facility] [address] [place] [phone] * LACTIC ACID BLOOD (08/13/2024 5:08 PM TRACK LAYING EQUIPMENT OPERATOR) [facility] Lactic Acid 1.5 <=2.0 mmol/L 08/13/2024 5:39 PM TRACK LAYING EQUIPMENT OPERATOR [facility] Blood BLOOD SPECIMEN / Unknown Venipuncture / Unknown 08/13/2024 5:08 PM TRACK LAYING EQUIPMENT OPERATOR 08/13/2024 5:21 PM TRACK LAYING EQUIPMENT OPERATOR Alexus Ramirez MD LAB - CHEMISTRY MICHAEL MONTGOMERY Performing Organization Address [facility] Co de Phone Number [facility] [id number] [place] [address] [phone] * (ABNORMAL) BLOOD GASES ARTERIAL (08/13/2024 4:16 PM TRACK LAYING EQUIPMENT OPERATOR) Pathologist [facility] [place] pH Arterial 7.47(H) 7.35 - 7.45 pH 08/13/2024 4:34 PM TRACK LAYING EQUIPMENT OPERATOR [facility] pO2 Arterial 99 80 - 100 mmHg 08/13/2024 4:34 PM TRACK LAYING EQUIPMENT OPERATOR [facility] pCO2 Arterial 39 35 - 45 mmHg 08/13/2024 4:34 PM TRACK LAYING EQUIPMENT OPERATOR [facility] HCO3 Arterial 28.4(H) 22.0 - 26.0 mmol/L 08/13/2024 4:34 PM TRACK LAYING EQUIPMENT OPERATOR [facility] BE Arterial 4.5(H) -2.0 - 2.0 mmol/L 08/13/2024 4:34 PM TRACK LAYING EQUIPMENT OPERATOR [facility] O2 Saturation Arterial 99 90 - 100 % 08/13/2024 4:34 PM TRACK LAYING EQUIPMENT OPERATOR [facility] Sample Site Right RA 08/13/2024 4:34 PM TRACK LAYING EQUIPMENT OPERATOR [facility] Mode APVcmv 08/13/2024 4:34 PM TRACK LAYING EQUIPMENT OPERATOR [facility] O2 Device VENT 08/13/2024 4:34 PM TRACK LAYING EQUIPMENT OPERATOR [facility] FI O2 50.0 % 08/13/2024 4:34 PM TRACK LAYING EQUIPMENT OPERATOR [facility] Mechanical Tidal Volume (mL) 380 08/13/2024 4:34 PM TRACK LAYING EQUIPMENT OPERATOR [facility] Mechanical Respiratory Rate (bpm) 22 08/13/2024 4:34 PM TRACK LAYING EQUIPMENT OPERATOR [facility] PEEP (cmH2O) 10 08/13/2024 4:34 PM TRACK LAYING EQUIPMENT OPERATOR [facility] Blood, arterial ARTERIAL BLOOD SPECIMEN / Unknown 08/13/2024 4:16 PM TRACK LAYING EQUIPMENT OPERATOR 08/13/2024 4:16 PM TRACK LAYING EQUIPMENT OPERATOR Alexus Ramirez MD LAB - BLOOD GASES OR DERABLES [facility] [id number] [phone] * XR CHEST 1VW PORTABLE (08/13/2024 4:04 PM TRACK LAYING EQUIPMENT OPERATOR) Anatomical Region Laterality Modality Chest Computed Radiogr aphy 08/13/2024 4:10 PM TRACK LAYING EQUIPMENT OPERATOR Impressions 08/13/2024 4:12 PM TRACK LAYING EQUIPMENT OPERATOR IMPRESSION: Multiple tubing placements as noted above. Subtle linear streak is present in the left lung. Also the diaphragm.? Atelectasis or scarring. Unfortunately, we have no previous chest imaging studies available at this time. > Interpreting Provider: Ko Olguin MD on 08/13/2024 4:12 PM Narrative 08/13/2024 4:12 PM TRACK LAYING EQUIPMENT OPERATOR PROCEDURE: XR CHEST 1VW PORTABLE DATE/TIME [...] to the level of the right atrium. manager monitoring wires obscure the chest bilaterally. Heart size [...] extendingto the level of the right atrium. manager monitoring wires obscure the chest bilaterally. Heart size [...] 3:54 PM 08/18/2024 6:24 PM Care Teams Topology Teacher Relationship Specialty Start Date End Date Kishor Saleh MD 2 [facility] [address] [address] PCP - General Internal Medicine 07/31/23
--- OUTSIDE RECORDS SUMMARY | 2024-10-03 04:20 | XMS_ITS | Referral Summary ---
Author Organization [facility] A Address [address] [place] [address] Care Team Providers Care Field Irrigation Worker Name Role Phone Ann Serrano MD Unavailable [phone] Lynn Rodriguez MD Primary Care Provider Encounters Date Type Department Care Team Description 09/09/2024 Documentation [facility] Rehabilitation Services at [address] [address] Tiffanie Cantu, PT PT Discharge 09/02/2024 Telephone [facility] Rehabilitation Services at [address] [address] Tiffanie Cantu, PT Cancel 08/30/2024 Telephone [facility] Rehabilitation Services at [address] [address] Ele Vazquez, PT Cancel 08/24/2024 Telephone [facility] [address] [place] [address] Yuki Mccain RN 08/23/2024 11:00 AM FOOT PRESS OPERATOR Office Visit [facility] Primary Care - [facility] [id number] [place] [address] [address] [address] Lynn Rodriguez MD Mild intermittent extrinsic asthma without complication (Primary Dx); Impaired mobility; Acute hypoxic respiratory failure (HCC); History of respiratory syncytial virus (RSV) vaccination; Class 3 severe obesity due to excess calories with serious comorbidity and body mass index (BMI) of 45.0 to 49.9 in adult (HCC) 08/19/2024 Telephone [facility] Home Care Services [address] [place] [phone] Sarah Baird, RN Medical Question/Miscellane ous 08/19/2024 Telephone [facility] [address] [place] [phone] Sarah Baird, RN 08/18/2024 Telephone [facility] [address] [place] [phone] Sarah Baird, RN 08/17/2024 Telephone [facility] [address] [place] [phone] Sarah Baird, RN 08/09/2024 Orders Only [facility] Endocrinology Metabolism and Lipid [address] [facility] 13th [place] [address] [place] [address] Stephanie Sandoval RMA Uncontrolled type 2 diabetes mellitus with hyperglycemia (HCC) 08/09/2024 Telephone [facility] Rehabilitation Services at [address] [address] Ele Vazquez, PT Cancel 08/05/2024 Telephone [facility] Rehabilitation Services at [address] [address] Ele Vazquez, PT Cancel (excused) 08/04/2024 Telephone [facility] Rehabilitation Services at [address] [address] Tiffanie Cantu, PT Appointment 07/29/2024 Plan of Care Documentation [facility] Rehabilitation Services at [address] [address] 07/29/2024 12:00 PM FOOT PRESS OPERATOR Therapy [facility] Rehabilitation Services at [address] [address] Tiffanie Cantu, PT Impaired mobility (Primary Dx); Lymphedema 07/13/2024 9:00 AM FOOT PRESS OPERATOR Office Visit [facility] Endocrinology Metabolism and Lipid [address] [facility] 13th [place] [address] [place] [phone] Shirley Teixeira PA Uncontrolled type 2 diabetes mellitus with hyperglycemia (HCC) (Primary Dx); Morbid obesity with BMI of 50.0-59.9, adult (HCC); Benign hypertension; Mixed hyperlipidemia; Vitamin D deficiency; intermission coordinator 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 user; skilled nursing (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) from Last [...] 400 each 3 024 Active blood-glucose sensor ([employer] G7 Sensor) deviceIndication s:Uncontrolled type 2 diabetes mellitus with hyperglycemia (HCC),intermission coordinator (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) Use for [...] NEBULIZER EVERY 6 HOURS NEEDED FOR WHEEZING (LITHOGRAPH OPERATOR RECOMMENDS NOT EXCEEDING 4 VIALS/DAY) 150 mL [...] 08/13/2024 Assessment & Plan (08/26/2024 6:09 PM FOOT PRESS OPERATOR): Recent hospitalization likely for CAP followed by RSV Symptoms resolved Impaired mobility 07/29/2024 skilled nursing (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 07/13/2024 intermission coordinator 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 user 07/13/2024 Assessment & Plan (07/13/2024 12:22 PM FOOT PRESS OPERATOR): - Further complicates diabetes management Need for vaccination 04/06/2024 Assessment & Plan (04/06/2024 4:14 PM CDT): Received pneumonia vaccine today history of pneumonia currently no complaints last bout in 08/2023 Head trauma 09/04/2022 Assessment & Plan (09/04/2022 2:35 PM FOOT PRESS OPERATOR): No signs of neurological abnormality on [...] booster Assessment & Plan (06/24/2021 3:28 PM FOOT PRESS OPERATOR): Pito vaccine 10/05/2020 and Moderna booster Jun 2021 Major depressive disorder 04/22/2021 Assessment & Plan (01/06/2024 9:09 AM CDT): Stable on current medication regimen. Assessment & Plan (01/17/2022 10:21 AM CDT): Stable on current medication regimen. Assessment & Plan (07/17/2021 2:07 PM FOOT PRESS OPERATOR): Better controlled on venlafaxine. Assessment & Plan (04/22/2021 8:25 AM CDT): Restart venlafaxine and warned of side effects and call back if any develop or if no improvement. Type 2 diabetes mellitus with hyperlipidemia 06/2020 Assessment & Plan (01/06/2024 9:09 AM CDT): A1c above goal. Will start Mounjaro soon. Continue other medications as directed by her registered mail clerk. Diet exercise discussed. Hopefully may be able to wean prednisone in the near future as well. Assessment & Plan (06/15/2023 10:48 AM FOOT PRESS OPERATOR): She knows that the steroids will exacerbate her hyperglycemia and should be in contact with her registered mail clerk for management. Assessment & Plan (06/08/2023 5:26 PM FOOT PRESS OPERATOR): Poor control of her diabetes prior to this hospitalization and even worse now on prednisone. Follow-up with her registered mail clerk for management. Diet exercise weight loss recommended. Assessment & Plan (01/21/2023 9:50 AM CDT): Blood sugars remain above goal. Hopefully the recent addition of mounjaro will help significantly. Discuss up titration of this and her mealtime insulin with her registered mail clerk. Diet exercise discussed. Check A1c and fasting blood sugar before next visit. Assessment & Plan (08/02/2022 12:16 PM FOOT PRESS OPERATOR): A1c poorly controlled. Importance of diet exercise weight loss discussed at length. Continue her Ozempic and insulin and needs to contact her registered mail clerk soon as possible for guidance on further therapy. Assessment & Plan (01/17/2022 10:22 AM CDT): Patient aware A1c grossly uncontrolled. Must work on diet exercise and weight loss. She has to get back on her insulin and should discuss this today with her registered mail clerk. Risks posed her health with poor glycemic control discussed. Assessment & Plan (07/13/2020 8:34 AM FOOT PRESS OPERATOR): A1c above goal. Importance of diet exercise weight loss discussed. Continue current medication regimen and follow-up with her registered mail clerk as they direct. 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 Unfortunately lab work and skin biopsy inconclusive. Discussed possible rheumatology 2nd opinion here at [facility] and patient will call back if desired. Assessment & Plan (06/15/2023 10:48 AM FOOT PRESS OPERATOR): Certainly making a case for underlying [...] condition. Assessment & Plan (06/20/2020 9:35 AM FOOT PRESS OPERATOR): Unclear etiology but I am thinking [...] 07/08/2019 Assessment & Plan (08/26/2024 6:10 PM FOOT PRESS OPERATOR): Body mass index is 49.1 kg/m . BMI Follow-up includes: nutrition counseling, exercise counseling, and education provided. Assessment & Plan (07/13/2024 12:20 PM FOOT PRESS OPERATOR): - Increase Mounjaro to 10 mg [...] tolerated. Assessment & Plan (06/08/2023 5:23 PM FOOT PRESS OPERATOR): Patient is encouraged to lose weight with a combination of caloric reduction and increased exercise. Various strategies discussed. The long-term risks associated with continued morbid obesity discussed. Assessment & Plan (09/04/2022 2:34 PM FOOT PRESS OPERATOR): Patient is encouraged to lose weight with a combination of caloric reduction and increased exercise. Various strategies discussed. The long-term risks associated with continued morbid obesity discussed. Assessment & Plan (08/02/2022 12:16 PM FOOT PRESS OPERATOR): Patient is encouraged to lose weight [...] discussed. Assessment & Plan (07/13/2020 8:34 AM FOOT PRESS OPERATOR): Patient is encouraged to lose weight with a combination of caloric reduction and increased exercise. Various strategies discussed. The long-term risks associated with continued morbid obesity discussed. Assessment & Plan (06/20/2020 9:35 AM FOOT PRESS OPERATOR): Patient is encouraged to lose weight with a combination of caloric reduction and increased exercise. Various strategies discussed. The long-term risks associated with continued morbid obesity discussed. Assessment & Plan (07/08/2019 8:44 AM FOOT PRESS OPERATOR): Patient is encouraged to lose weight with a combination of caloric reduction and increased exercise. Various strategies discussed. The long-term risks associated with continued morbid obesity discussed. Irregular menses 06/03/2019 Allergic rhinitis 07/05/2018 Assessment & Plan (02/23/2023 1:30 PM CDT): Nasal saline spray (Simply saline, Little Remedies, [place], [place]) 2 second sprays or 2 squeezes into [...] daily Assessment & Plan (07/17/2021 2:07 PM FOOT PRESS OPERATOR): Claritin montelukast. Assessment & Plan (04/22/2021 8:25 AM CDT): Currently using Claritin and montelukast. She has not been trying Flonase as her nose is being to congested. Recommended sinus rinses her using a hot warm shower. Could also try Afrin for few days. Assessment & Plan (07/08/2019 8:43 AM FOOT PRESS OPERATOR): Add montelukast to her Claritin. She struggles with nasal sprays due to chronic congestion. Assessment & Plan (07/05/2018 9:24 AM FOOT PRESS OPERATOR): Try Afrin for 3 days along with initiating fluticasone. Stop Afrin in3 days and continue fluticasone indefinitely. continue Zyrtec. Mixed hyperlipidemia 07/02/2017 Assessment & Plan (07/13/2024 12:21 PM FOOT PRESS OPERATOR): - Last LDL 103, TG 308, [...] triglycerides. Assessment & Plan (09/12/2023 8:12 PM FOOT PRESS OPERATOR): Continue statin and optimize glycemic control Assessment & Plan (02/16/2023 8:14 PM CDT): Continue statin and optimize glycemic control Assessment & Plan (01/21/2023 9:50 AM CDT): Continue her atorvastatin and work on diet exercise and check lipids and LFTs before next visit. Assessment & Plan (08/02/2022 12:15 PM FOOT PRESS OPERATOR): Well controlled on current therapy and will check a lipid panel and LFTs in 6 months. Assessment & Plan (01/17/2022 10:21 AM CDT): Well controlled on current therapy and will check a lipid panel and LFTs in 6 months. Assessment & Plan (07/17/2021 2:06 PM FOOT PRESS OPERATOR): Well controlled on current therapy and will check a lipid panel and LFTs in 6 months. Assessment & Plan (06/24/2021 3:28 PM FOOT PRESS OPERATOR): Continue statin and optimize glycemic control Assessment & Plan (12/19/2020 7:53 AM CDT): Continue statin and optimize glycemic control Assessment & Plan (07/13/2020 8:34 AM FOOT PRESS OPERATOR): Well controlled on current therapy and will check a lipid panel and LFTs in 6 months. Assessment & Plan (06/08/2020 8:31 AM FOOT PRESS OPERATOR): LDL within goal. Continue statin and optimize glycemic control Assessment & Plan (07/08/2019 8:42 AM FOOT PRESS OPERATOR): Well controlled on current therapy and will check a lipid panel and LFTs in 12 months. Assessment & Plan (09/01/2018 2:22 PM FOOT PRESS OPERATOR): Continue statin, optimize glycemic control Assessment & Plan (07/05/2018 9:23 AM FOOT PRESS OPERATOR): Well controlled on current therapy and will check a lipid panel and LFTs in 6 months. Assessment & Plan (08/26/2017 4:27 PM FOOT PRESS OPERATOR): Start atorvastatin and check lipids and LFTs in 3-4 months. Call back for results. Vitamin D deficiency 07/02/2017 Assessment & Plan (07/13/2024 12:22 PM FOOT PRESS OPERATOR): - Last Vitamin D 42 (12/2023), [...] week Assessment & Plan (09/12/2023 8:12 PM FOOT PRESS OPERATOR): Continue long-term supplement Assessment & Plan (02/16/2023 8:14 PM CDT): Continue long-term supplement Assessment & Plan (08/02/2022 12:15 PM FOOT PRESS OPERATOR): Continue current supplementation and check level in 1 year. Assessment & Plan (07/17/2021 2:06 PM FOOT PRESS OPERATOR): Continue current supplementation and check level in 1 year. Assessment & Plan (06/24/2021 3:29 PM FOOT PRESS OPERATOR): Continue long-term supplement Assessment & Plan (12/19/2020 7:53 AM CDT): Continue long-term supplement Assessment & Plan (07/13/2020 8:33 AM FOOT PRESS OPERATOR): Continue current supplementation and check level in 1 year. Assessment & Plan (06/08/2020 8:31 AM FOOT PRESS OPERATOR): Vitamin-D level within goal, continue chronic supplement Assessment & Plan (07/08/2019 8:42 AM FOOT PRESS OPERATOR): Continue current supplementation and check level in 1 year. Assessment & Plan (06/03/2019 8:24 AM CDT): Recently ran out of supplement, so we will restart and check her level today. Also check B12 Assessment & Plan (09/01/2018 2:22 PM FOOT PRESS OPERATOR): Continue supplement Assessment & Plan (07/05/2018 9:23 AM FOOT PRESS OPERATOR): Continue current supplementation and check level in 1 year. Assessment & Plan (08/26/2017 4:26 PM FOOT PRESS OPERATOR): Continue current supplementation and check level in 1 year. Uncontrolled type 2 diabetes mellitus with hyper glycemia 03/24/2016 Overview (07/05/2018): Cannot tolerate metformin, glipizide due to nausea/vomiting; Invokana works better than jardiance. Does not tolerate acarbose Assessment & Plan (08/26/2024 6:10 PM FOOT PRESS OPERATOR): Assessment & Plan (07/13/2024 12:20 PM FOOT PRESS OPERATOR): - Diabetes is complicated by hyperlipidemia, hypertension, morbid obesity and chronic steroid use. Uncontrolled. Lab Results Component Value Date HGBA1C 11.7 07/13/2024 Per [employer], goal A1c is less 7% [...] in prescriptions for both Dexcom G7 and [employer] Silva 3 CGM for olivares checking. Also [...] Return visit 3 months to see the TISSUE REWINDER/PA, 6 months to see me. Assessment & [...] Component Value Date HGBA1C 12.5 11/17/2023 Per [employer], goal A1c is less 7% [...] that I am available via phone or [employer] if they have any concerns for hypo/hyperglycemia, medication refills, etc. Assessment & Plan (11/18/2023 8:23 AM CDT): - Diabetes is complicated by HTN, HLD, steroid use, hyperglycemia and obesity. Uncontrolled. Lab Results Component Value Date HGBA1C 12.5 11/17/2023 Per [employer], goal A1c is less 7% without significant hypoglycemia. - Management Goal: re-start and adherence to medication regimen - Continue current medication regimen at this time. - Patient called local pharmacy to confirm that they do have prescriptions for her Semglee. She is going to fruit or nut picker today after this visit. - Insurance [...] etc. Assessment & Plan (09/12/2023 8:13 PM FOOT PRESS OPERATOR): Very high glucoses; multifactorial including steroid [...] daily. Assessment & Plan (06/24/2021 3:29 PM FOOT PRESS OPERATOR): Much improved but needs a little more basal insulin. Assessment & Plan (12/19/2020 7:53 AM CDT): Multiple medications, but now requires insulin. We can gradually adjust her Lantus based on her clinical response. Assessment & Plan (06/08/2020 8:32 AM FOOT PRESS OPERATOR): Glucoses somewhat better now that she [...] motivator. Assessment & Plan (07/08/2019 8:43 AM FOOT PRESS OPERATOR): Continue increased dose of Ozempic and also continue Invokana. Importance of dietary changes increase exercise weight loss discussed. Follow-up with her registered mail clerk as they direct. Assessment & Plan (06/03/2019 8:25 AM CDT): Somewhat suboptimal, would benefit from increasing Ozempic and continuing efforts with diet and lifestyle. Needs follow-up labs Assessment & Plan (09/01/2018 2:22 PM FOOT PRESS OPERATOR): Glucoses a little high, but she has bruising with Victoza so she may benefit by changing to weekly Ozempic, which is a little stronger, as well. Jardiance is been ineffective, so we may need to provide preauthorization for Invokana Assessment & Plan (07/05/2018 9:23 AM FOOT PRESS OPERATOR): A1c above goal. We stressed importance of increased exercise, reduce calories, weight loss. Could consider switching Victoza to ozempic. Otherwise does not tolerate metformin or sulfonylureas. May need insulin soon. She is directed to follow up with her registered mail clerk more quickly than her next scheduled appointment in November. Assessment & Plan (08/26/2017 4:26 PM FOOT PRESS OPERATOR): Continue current medication regimen and follow up with her registered mail clerk as they direct. Low carb diet weight loss recommended. Check blood sugars once daily. Start atorvastatin and check lipids and LFTs in 3-4 months. Anxiety state 12/17/2013 Overview (11/07/2016): ANXIETY STATE NOS Benign hypertension 12/17/2013 Overview (11/07/2016): BENIGN HYPERTENSION Assessment & Plan (07/13/2024 12:21 PM FOOT PRESS OPERATOR): - Above goal today - Encouraged [...] monitor. Assessment & Plan (06/08/2023 5:25 PM FOOT PRESS OPERATOR): Stop amlodipine with current issues of swelling. Pressure currently well controlled and should monitor at home Assessment & Plan (01/21/2023 9:49 AM CDT): Blood pressure well controlled on lisinopril Assessment & Plan (09/04/2022 2:34 PM FOOT PRESS OPERATOR): Blood pressure well controlled on her lisinopril. Assessment & Plan (08/02/2022 12:15 PM FOOT PRESS OPERATOR): Increase lisinopril to 20 mg daily. Monitor blood pressure at home call back if no improvement. Assessment & Plan (01/17/2022 10:21 AM CDT): Well controlled on the current regimen. Avoidance of salt, proper body weight, and routine exercise recommended. Assessment & Plan (07/17/2021 2:06 PM FOOT PRESS OPERATOR): Well controlled on the current regimen. Avoidance of salt, proper body weight, and routine exercise recommended. Assessment & Plan (04/22/2021 8:24 AM CDT): Well controlled on the current regimen. Avoidance of salt, proper body weight, and routine exercise recommended. Assessment & Plan (07/13/2020 8:34 AM FOOT PRESS OPERATOR): Well controlled on the current regimen. Avoidance of salt, proper body weight, and routine exercise recommended. Assessment & Plan (07/08/2019 8:42 AM FOOT PRESS OPERATOR): Well controlled on the current regimen. Avoidance of salt, proper body weight, and routine exercise recommended. Assessment & Plan (09/01/2018 2:21 PM FOOT PRESS OPERATOR): Blood pressure close to target, working on diet and lifestyle Assessment & Plan (07/05/2018 9:23 AM FOOT PRESS OPERATOR): Well controlled on the current regimen. Avoidance of salt, proper body weight, and routine exercise recommended. Assessment & Plan (08/26/2017 4:25 PM FOOT PRESS OPERATOR): Well controlled on the current regimen. Avoidance of salt, proper body weight, and routine exercise recommended. Anemia 12/29/2012 Extrinsic asthma 08/19/2012 Overview (06/03/2019): Description: frequent flares Assessment & Plan (08/26/2024 6:08 PM FOOT PRESS OPERATOR): Recent exacerbation due to CAP followed by RSV Symptoms improved Continue present plan and medication--albuterol prn, montelukast Assessment & Plan (07/13/2020 8:36 AM FOOT PRESS OPERATOR): Doing well on her Symbicort. Okay to discontinue and use albuterol only as needed. Restart Symbicort if uses her albuterol more than 2 times a week. Sleep apnea syndrome 04/01/2012 Overview (11/12/2017): Description: CPAP Assessment & Plan (01/06/2024 9:08 AM CDT): Patient is compliant with the CPAP machine and gets symptomatic relief. Assessment & Plan (08/02/2022 12:15 PM FOOT PRESS OPERATOR): Patient is compliant with the CPAP machine and gets symptomatic relief. Assessment & Plan (07/17/2021 2:06 PM FOOT PRESS OPERATOR): Repeat sleep study confirmed obstructive sleep [...] syndrome. Assessment & Plan (07/13/2020 8:34 AM FOOT PRESS OPERATOR): Patient is compliant with the CPAP machine and gets symptomatic relief. Assessment & Plan (07/08/2019 8:42 AM FOOT PRESS OPERATOR): Patient is compliant with the CPAP [...] legs Assessment & Plan (06/15/2023 10:47 AM FOOT PRESS OPERATOR): Improved after addition of doxycycline to her Bactrim. Call back if symptoms worsen after doxycycline runs out Assessment & Plan (06/08/2023 5:25 PM FOOT PRESS OPERATOR): Seems like cellulitis slow to improve [...] yearly. Colonoscopy due March 2027. Follow-up the core rescuer for breast exam pelvic exam as they direct. Will see her back in about 6 months sooner if needed. Assessment & Plan (08/02/2022 12:17 PM FOOT PRESS OPERATOR): Flu shot each May. Tetanus booster every 10 years. Pneumovax completed. COVID booster recommended. Mammogram yearly. Colonoscopy due March 2027. Follow-up the core rescuer for breast exam pelvic exam as they direct. Will see her back in 6 months with lab sooner if needed. Assessment & Plan (07/17/2021 2:08 PM FOOT PRESS OPERATOR): Flu shot each May. Tetanus booster every 10 years. Pneumovax completed. COVID vaccine completed. Mammogram yearly. Colonoscopy ordered and she should verify coverage before proceeding. Follow-up the core rescuer for breast exam and pelvic exam as they direct. We will see her back in 1 year for physical and fasting lab sooner if needed. Assessment & Plan (07/13/2020 8:35 AM FOOT PRESS OPERATOR): Flu shot each May. Tetanus booster every 10 years. She has had a Pneumovax. Mammogram was abnormal back in August and she has delayed follow-up studies until now and she is urged to get her diagnostic and ultrasound studies done at her earliest convenience and she is aware of the risks posed her health with delay in proceeding. Follow-up the core rescuer for breast exam and pelvic exam as they direct. We will see her back in 1 year for wellness visit fasting lab sooner if needed. Assessment & Plan (07/08/2019 8:43 AM FOOT PRESS OPERATOR): Flu shot each May. Tetanus booster every 10 years. Mammogram ordered. Will see her back in 1 year for physical and fasting lab sooner if needed. Assessment & Plan (07/05/2018 9:24 AM FOOT PRESS OPERATOR): Tetanus booster today. Flu shot each May. Mammogram ordered. Patient should follow-up the core rescuer breast exam and pelvic exam. We will see her back in 1 year for wellness visit fasting lab sooner if needed. Assessment & Plan (08/26/2017 4:27 PM FOOT PRESS OPERATOR): Flu shot each May. Tetanus booster every 10 years. See her core rescuer for breast exam mammogram and Pap smear is a direct. We will see her back in 1 year with fasting lab sooner if needed. Morbid obesity 08/26/2017 07/05/2018 Assessment & Plan (08/26/2017 4:28 PM FOOT PRESS OPERATOR): Patient is encouraged to lose weight [...] Unspecified 05/16/2021,2020,04/22/2021(Defer red: Patient Refused),03/19/2021(Deferred: Patient Refused),05/12/2019,05/07/2017 [employer] ([employer] SARS-CoV-2 Vaccination 10/05/2020 Pneumococcal Conjugate Pcv20 [...] on file Legal Sex Female 11:54 PM FOOT PRESS OPERATOR Gender Identity Female 09/19/2020 8:37 AM FOOT PRESS OPERATOR Sexual Orientation Straight 09/19/2020 8: 37 AM FOOT PRESS OPERATOR Last Filed Vital Signs Vital Sign Reading Time Taken Comments Blood Pressure 124/88 08/23/2024 10:35 AM FOOT PRESS OPERATOR Pulse 91 08/23/2024 10:35 AM FOOT PRESS OPERATOR Temperature 36.5 C (97.7 F) 08/23/2024 10:35 AM FOOT PRESS OPERATOR Respiratory Rate 24 08/23/2024 10:35 AM FOOT PRESS OPERATOR Oxygen Saturation 98% 08/23/2024 10:35 AM FOOT PRESS OPERATOR Inhaled Oxygen Concentration - - Weight 138 kg (304 lb 3.8 oz) 08/23/2024 10:35 A M FOOT PRESS OPERATOR Height 167.6 cm (5' 6 ) 08/23/2024 10:35 AM FOOT PRESS OPERATOR Body Mass Index 49.1 08/23/2024 10:35 AM FOOT PRESS OPERATOR Plan of Treatment Not on file Procedures Procedure Name Priority Date/Time Associated Diagnosis Comments POCT HEMOGLOBIN A1C Routine 07/13/2024 9 :08 AM FOOT PRESS OPERATOR Uncontrolled type 2 diabetes mellitus with hyperglycemia (HCC) POCT GLUCOSE 99156 Routine 07/13/2024 9: 08 AM FOOT PRESS OPERATOR Uncontrolled type 2 diabetes mellitus with [...] Results * POCT glucose (07/13/2024 9:08 AM FOOT PRESS OPERATOR) Glucose Blood, POC 161 mg/dL Blood 07/13/2024 9:08 AM FOOT PRESS OPERATOR Result [facility] Shirley CHUN POINT OF CARE TEST ORDERA BLES Final Result * POCT hemoglobin A1c (07/13/2024 9:08 AM FOOT PRESS OPERATOR) Hemoglobin A1C, POC 11.7 4.0 - 5.6 % Blood 07/13/2024 9:08 AM FOOT PRESS OPERATOR Result [facility] Shirley CHUN POINT OF CARE TEST ORDERA BLES Final Result * (ABNORMAL) Comprehensive metabolic panel (12/29/2023 1:40 PM CDT) Glucose 121(H) 65 - 99 mg/dL [facility] Comment: Fasting reference interval For someone without known diabetes, a glucose value between 100 and 125 mg/dL is consistent with prediabetes and should be confirmed with a follow-up test. BUN 15 7 - 25 mg/dL [facility] ian Shee[facility] Creatinine 0.69 0.50 - 0.99 mg/dL [facility] eGFR 108 > OR = 60 mL/min/1.7 3m2 [facility] BUN/creat ratio SEE NOTE: 6 - 22 (calc) [facility] Comment: Not Reported: BUN and Creatinine are within reference range. Sodium 138 135 - 146 mmol/L [facility] Potassium, pl 4.1 3.5 - 5.3 mmol/L [facility] [place] Chloride 97(L) 98 - 110 mmol/L [facility] CO2 30 20 - 32 mmol/L [facility] Calcium 9.7 8.6 - 10.2 mg/dL [facility] Protein, sr 7.0 6.1 - 8.1 g/dL [facility] Albumin 4.3 3.6 - 5.1 g/dL [facility] GLOBULIN 2.7 1.9 - 3.7 g/dL (calc) [facility] Alb/glob ratio 1.6 1.0 - 2.5 (calc) [facility] Sheehan Bilirubin, total 0.6 0.2 - 1.2 [...] ORDERABLES Final R esult Performing Organization Address City/[facility]/ZIP Co de Phone Number [facility] [facility] [address] [place] [address] * Albumin Creatinine Ratio, Urine (12/29/2023 12:26 PM CDT) Albumin Ur 14.1 mg/L Comment: Interpretive Data No reference range established. Current interpretive data was last revised 2018. Creatinine Ur 117.0 mg/dL [facility] Comment: Interpretive Data No reference range established. Current interpretive data was last revised 2018. Albumin Creatinine Ratio, Ur 12 1 - 29 mg/g [facility] Urine 12/29/2023 12:2 6 PM CDT 12/29/2023 1:04 PM CDT Shirley CHUN LAB URINE ORDERABLES Flora l Result Performing Organization Address City/[facility]/ZIP Co de Phone Number [facility] Department [place] [address] * (ABNORMAL) Lipid panel (12/29/2023 12:26 PM [...] on 2018. Triglycerides 265(H) <=149 mg/dL [facility] Comment: Interpretive Data Ages < or [...] revised on 2018. HDL 87 >=40 mg/dL [facility] Comment: Interpretive Data Ages < or [...] 2018. LDL, calculated 68 <=129 mg/dL [facility] Comment: Interpretive Data Ages < or [...] revised on 2018. Non-HDL Cholesterol 121 mg/dL [facility] Comment: Interpretive Data Ages < or = [...] last revised on 2018. Chol/HDL ratio 2 [facility] Blood 12/29/2023 12:2 6 PM CDT 12/29/2023 1:04 PM CDT Shirley CHUN LAB BLOOD ORDERABLES Flora dowd Result [facility] Department [place] [address] * Screening Mammogram Bilateral W Vincenzo (12/29/2023 9:26 AM CDT) Anatomical Region Laterality Modality Breast Bilateral Mammography Narrative 12/30/2023 2:01 PM CDT Mammogram Technique: Bilateral Digital Breast Tomosynthesis, Bilateral C-view 2D Screening mammogram. Views obtained: bilateral craniocaudal and bilateral mediolateral oblique. Computer Aided Detection was performed. Mammogram Findings: The present examination has been compared to prior imaging studies performed at [facility]. [facility] on 01/01/2022 and 02/25/2023, and at [facility]. [place], [place] on 09/12/2020. There are scattered areas [...] compared to prior imaging studies performed at [facility]. [facility] on 01/01/2022 and 02/25/2023, and at [facility]. [place], [place] on 09/12/2020. There are scattered areas of fibroglandular density. There is no suspicious abnormality in either breast. Impression: There is no mammographic evidence of malignancy. Annual screening mammography is recommended. OVERALL FINAL ASSESSMENT: BI-RADS CATEGORY 1: Negative. Kishor Saleh MD IMG MAMMO PROCEDURES Final R esult * Diabetic Eye Exam (11/10/2022) Generic External Data Provider [facility] MAIN[facility] E Final Result * COLONOSCOPY (04/02/2022 9:28 AM CDT) Anatomical Region Laterality Modality Other Narrative Procedure Note Ad Camacho MD - 04/02/2022 9:28 AM CDT [facility] Patient Name: Camila Huitron Procedure Date: 04/02/2022 9:28 AM Date of : 1975 Admit Type: Outpatient Age: 46 Gender: Female Attending MD: Ad Camacho M.D. Room: [facility] 2 Note Status: Finalized [...] scope was passed under direct vision. TheColonoscope [id number] was introduced through the anus and advanced [...] 9:28 AM Procedure Code(s): --- Professional --- 89000, Colonoscopy, flexible; with biopsy, single or multiple Diagnosis Code(s): --- Professional --- Z12.11, Encounter for screening for malignant neoplasm of colon D12.3, Benign neoplasm of transverse colon (hepatic flexure orsplenic flexure) D12.4, Benign neoplasm of descending colon D12.8, Benign neoplasm of rectum CPT copyright 2020 [employer]. All rights reserved. The codes documented in this report are preliminary and upon automotive porter reviewmay be revised to meet current compliance requirements. Recognized by the [employer] for promoting quality in endoscopy Ad Camacho MD ENDOSCOPY PROCEDURES Final Resul t * Diabetic Foot Exam (03/26/2021) Impressions Art Staley MA - 03/26/2021 In care everywhere Historical Provider HEALTH MAINTENANCE Final Result from Last 3 Months or Most Recently Relevant to Health Maintenance Insurance [employer] [facility] Advance Directives For more information, please contact: [phone] * Full Code (Latest Code Status on File) Date Activated Date Inactivated Comments 04/02/2022 9:27 AM 04/02/2022 4:47 PM * Full Code Date Activated Date Inactivated Comments 04/02/2022 9:27 AM 04/02/2022 9:27 AM 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
--- OUTSIDE RECORDS SUMMARY | 2024-10-03 04:20 | XMS_ITS | Clinical Summary ---
Author Organization [facility] Medical Office Building A Address [address] [place] [address] Care Team Providers Care Oracle Iam Consultant Name Role Phone Ann Serrano MD Unavailable [phone] Lynn Rodriguez MD Primary Care Provider Allergies [...] s:Uncontrolled type 2 diabetes mellitus with hyperglycemia (HCC),shelter (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) Use for [...] NEBULIZER EVERY 6 HOURS NEEDED FOR WHEEZING (PHOTOGRAPHY SALES ASSOCIATE RECOMMENDS NOT EXCEEDING 4 VIALS/DAY) 150 mL [...] 08/13/2024 Assessment & Plan (08/26/2024 6:09 PM CASSANDRA DEVELOPER): Recent hospitalization likely for CAP followed by RSV Symptoms resolved Impaired mobility 07/29/2024 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 (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 07/13/2024 shelter 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 user 07/13/2024 Assessment & Plan (07/13/2024 12:22 PM CASSANDRA DEVELOPER): - Further complicates diabetes management Need for vaccination 04/06/2024 Assessment & Plan (04/06/2024 4:14 PM CDT): Received pneumonia vaccine today history of pneumonia currently no complaints last bout in 08/2023 Head trauma 09/04/2022 Assessment & Plan (09/04/2022 2:35 PM CASSANDRA DEVELOPER): No signs of neurological abnormality on examination [...] booster Assessment & Plan (06/24/2021 3:28 PM CASSANDRA DEVELOPER): Pito vaccine 10/05/2020 and Moderna booster Jun 2021 Major depressive disorder 04/22/2021 Assessment & Plan (01/06/2024 9:09 AM CDT): Stable on current medication regimen. Assessment & Plan (01/17/2022 10:21 AM CDT): Stable on current medication regimen. Assessment & Plan (07/17/2021 2:07 PM CASSANDRA DEVELOPER): Better controlled on venlafaxine. Assessment & Plan (04/22/2021 8:25 AM CDT): Restart venlafaxine and warned of side effects and call back if any develop or if no improvement. Type 2 diabetes mellitus with hyperlipidemia 06/2020 Assessment & Plan (01/06/2024 9:09 AM CDT): A1c above goal. Will start Mounjaro soon. Continue other medications as directed by her staffing analyst. Diet exercise discussed. Hopefully may be able to wean prednisone in the near future as well. Assessment & Plan (06/15/2023 10:48 AM CASSANDRA DEVELOPER): She knows that the steroids will exacerbate her hyperglycemia and should be in contact with her staffing analyst for management. Assessment & Plan (06/08/2023 5:26 PM CASSANDRA DEVELOPER): Poor control of her diabetes prior to this hospitalization and even worse now on prednisone. Follow-up with her staffing analyst for management. Diet exercise weight loss recommended. Assessment & Plan (01/21/2023 9:50 AM CDT): Blood sugars remain above goal. Hopefully the recent addition of mounjaro will help significantly. Discuss up titration of this and her mealtime insulin with her staffing analyst. Diet exercise discussed. Check A1c and fasting blood sugar before next visit. Assessment & Plan (08/02/2022 12:16 PM CASSANDRA DEVELOPER): A1c poorly controlled. Importance of diet exercise weight loss discussed at length. Continue her Ozempic and insulin and needs to contact her staffing analyst soon as possible for guidance on further therapy. Assessment & Plan (01/17/2022 10:22 AM CDT): Patient aware A1c grossly uncontrolled. Must work on diet exercise and weight loss. She has to get back on her insulin and should discuss this today with her staffing analyst. Risks posed her health with poor glycemic control discussed. Assessment & Plan (07/13/2020 8:34 AM CASSANDRA DEVELOPER): A1c above goal. Importance of diet exercise weight loss discussed. Continue current medication regimen and follow-up with her staffing analyst as they direct. 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 Unfortunately lab work and skin biopsy inconclusive. Discussed possible rheumatology 2nd opinion here at [facility] and patient will call back if desired. Assessment & Plan (06/15/2023 10:48 AM CASSANDRA DEVELOPER): Certainly making a case for underlying vasculitis [...] condition. Assessment & Plan (06/20/2020 9:35 AM CASSANDRA DEVELOPER): Unclear etiology but I am thinking of [...] 07/08/2019 Assessment & Plan (08/26/2024 6:10 PM CASSANDRA DEVELOPER): Body mass index is 49.1 kg/m . BMI Follow-up includes: nutrition counseling, exercise counseling, and education provided. Assessment & Plan (07/13/2024 12:20 PM CASSANDRA DEVELOPER): - Increase Mounjaro to 10 mg weekly [...] tolerated. Assessment & Plan (06/08/2023 5:23 PM CASSANDRA DEVELOPER): Patient is encouraged to lose weight with a combination of caloric reduction and increased exercise. Various strategies discussed. The long-term risks associated with continued morbid obesity discussed. Assessment & Plan (09/04/2022 2:34 PM CASSANDRA DEVELOPER): Patient is encouraged to lose weight with a combination of caloric reduction and increased exercise. Various strategies discussed. The long-term risks associated with continued morbid obesity discussed. Assessment & Plan (08/02/2022 12:16 PM CASSANDRA DEVELOPER): Patient is encouraged to lose weight with [...] discussed. Assessment & Plan (07/13/2020 8:34 AM CASSANDRA DEVELOPER): Patient is encouraged to lose weight with a combination of caloric reduction and increased exercise. Various strategies discussed. The long-term risks associated with continued morbid obesity discussed. Assessment & Plan (06/20/2020 9:35 AM CASSANDRA DEVELOPER): Patient is encouraged to lose weight with a combination of caloric reduction and increased exercise. Various strategies discussed. The long-term risks associated with continued morbid obesity discussed. Assessment & Plan (07/08/2019 8:44 AM CASSANDRA DEVELOPER): Patient is encouraged to lose weight with a combination of caloric reduction and increased exercise. Various strategies discussed. The long-term risks associated with continued morbid obesity discussed. Irregular menses 06/03/2019 Allergic rhinitis 07/05/2018 Assessment & Plan (02/23/2023 1:30 PM CDT): Nasal saline spray (Simply saline, [employer], [place], [place]) 2 second sprays or 2 squeezes into [...] daily Assessment & Plan (07/17/2021 2:07 PM CASSANDRA DEVELOPER): Claritin montelukast. Assessment & Plan (04/22/2021 8:25 AM CDT): Currently using Claritin and montelukast. She has not been trying Flonase as her nose is being to congested. Recommended sinus rinses her using a hot warm shower. Could also try Afrin for few days. Assessment & Plan (07/08/2019 8:43 AM CASSANDRA DEVELOPER): Add montelukast to her Claritin. She struggles with nasal sprays due to chronic congestion. Assessment & Plan (07/05/2018 9:24 AM CASSANDRA DEVELOPER): Try Afrin for 3 days along with initiating fluticasone. Stop Afrin in3 days and continue fluticasone indefinitely. continue Zyrtec. Mixed hyperlipidemia 07/02/2017 Assessment & Plan (07/13/2024 12:21 PM CASSANDRA DEVELOPER): - Last LDL 103, TG 308, TC [...] triglycerides. Assessment & Plan (09/12/2023 8:12 PM CASSANDRA DEVELOPER): Continue statin and optimize glycemic control Assessment & Plan (02/16/2023 8:14 PM CDT): Continue statin and optimize glycemic control Assessment & Plan (01/21/2023 9:50 AM CDT): Continue her atorvastatin and work on diet exercise and check lipids and LFTs before next visit. Assessment & Plan (08/02/2022 12:15 PM CASSANDRA DEVELOPER): Well controlled on current therapy and will check a lipid panel and LFTs in 6 months. Assessment & Plan (01/17/2022 10:21 AM CDT): Well controlled on current therapy and will check a lipid panel and LFTs in 6 months. Assessment & Plan (07/17/2021 2:06 PM CASSANDRA DEVELOPER): Well controlled on current therapy and will check a lipid panel and LFTs in 6 months. Assessment & Plan (06/24/2021 3:28 PM CASSANDRA DEVELOPER): Continue statin and optimize glycemic control Assessment & Plan (12/19/2020 7:53 AM CDT): Continue statin and optimize glycemic control Assessment & Plan (07/13/2020 8:34 AM CASSANDRA DEVELOPER): Well controlled on current therapy and will check a lipid panel and LFTs in 6 months. Assessment & Plan (06/08/2020 8:31 AM CASSANDRA DEVELOPER): LDL within goal. Continue statin and optimize glycemic control Assessment & Plan (07/08/2019 8:42 AM CASSANDRA DEVELOPER): Well controlled on current therapy and will check a lipid panel and LFTs in 12 months. Assessment & Plan (09/01/2018 2:22 PM CASSANDRA DEVELOPER): Continue statin, optimize glycemic control Assessment & Plan (07/05/2018 9:23 AM CASSANDRA DEVELOPER): Well controlled on current therapy and will check a lipid panel and LFTs in 6 months. Assessment & Plan (08/26/2017 4:27 PM CASSANDRA DEVELOPER): Start atorvastatin and check lipids and LFTs in 3-4 months. Call back for results. Vitamin D deficiency 07/02/2017 Assessment & Plan (07/13/2024 12:22 PM CASSANDRA DEVELOPER): - Last Vitamin D 42 (12/2023), replete [...] week Assessment & Plan (09/12/2023 8:12 PM CASSANDRA DEVELOPER): Continue long-term supplement Assessment & Plan (02/16/2023 8:14 PM CDT): Continue long-term supplement Assessment & Plan (08/02/2022 12:15 PM CASSANDRA DEVELOPER): Continue current supplementation and check level in 1 year. Assessment & Plan (07/17/2021 2:06 PM CASSANDRA DEVELOPER): Continue current supplementation and check level in 1 year. Assessment & Plan (06/24/2021 3:29 PM CASSANDRA DEVELOPER): Continue long-term supplement Assessment & Plan (12/19/2020 7:53 AM CDT): Continue long-term supplement Assessment & Plan (07/13/2020 8:33 AM CASSANDRA DEVELOPER): Continue current supplementation and check level in 1 year. Assessment & Plan (06/08/2020 8:31 AM CASSANDRA DEVELOPER): Vitamin-D level within goal, continue chronic supplement Assessment & Plan (07/08/2019 8:42 AM CASSANDRA DEVELOPER): Continue current supplementation and check level in 1 year. Assessment & Plan (06/03/2019 8:24 AM CDT): Recently ran out of supplement, so we will restart and check her level today. Also check B12 Assessment & Plan (09/01/2018 2:22 PM CASSANDRA DEVELOPER): Continue supplement Assessment & Plan (07/05/2018 9:23 AM CASSANDRA DEVELOPER): Continue current supplementation and check level in 1 year. Assessment & Plan (08/26/2017 4:26 PM CASSANDRA DEVELOPER): Continue current supplementation and check level in 1 year. Uncontrolled type 2 diabetes mellitus with hyper glycemia 03/24/2016 Overview (07/05/2018): Cannot tolerate metformin, glipizide due to nausea/vomiting; Invokana works better than jardiance. Does not tolerate acarbose Assessment & Plan (08/26/2024 6:10 PM CASSANDRA DEVELOPER): Assessment & Plan (07/13/2024 12:20 PM CASSANDRA DEVELOPER): - Diabetes is complicated by hyperlipidemia, hypertension, morbid obesity and chronic steroid use. Uncontrolled. Lab Results Component Value Date HGBA1C 11.7 07/13/2024 Per [place] [employer], goal A1c is less 7% [...] in prescriptions for both Dexcom G7 [facility] CGM for olivares checking. Also [...] Return visit 3 months to see the VETERINARY MEDICINE DOCTOR/PA, 6 months to see me. Assessment & [...] Component Value Date HGBA1C 12.5 11/17/2023 Per [place] [employer], goal A1c is less 7% [...] Component Value Date HGBA1C 12.5 11/17/2023 Per [place] [employer], goal A1c is less 7% without significant hypoglycemia. - Management Goal: re-start and adherence to medication regimen - Continue current medication regimen at this time. - Patient called local pharmacy to confirm that they do have prescriptions for her Semglee. She is going to pecan picker today after this visit. - Insurance [...] etc. Assessment & Plan (09/12/2023 8:13 PM CASSANDRA DEVELOPER): Very high glucoses; multifactorial including steroid therapy, [...] daily. Assessment & Plan (06/24/2021 3:29 PM CASSANDRA DEVELOPER): Much improved but needs a little more basal insulin. Assessment & Plan (12/19/2020 7:53 AM CDT): Multiple medications, but now requires insulin. We can gradually adjust her Lantus based on her clinical response. Assessment & Plan (06/08/2020 8:32 AM CASSANDRA DEVELOPER): Glucoses somewhat better now that she is [...] motivator. Assessment & Plan (07/08/2019 8:43 AM CASSANDRA DEVELOPER): Continue increased dose of Ozempic and also continue Invokana. Importance of dietary changes increase exercise weight loss discussed. Follow-up with her staffing analyst as they direct. Assessment & Plan (06/03/2019 8:25 AM CDT): Somewhat suboptimal, would benefit from increasing Ozempic and continuing efforts with diet and lifestyle. Needs follow-up labs Assessment & Plan (09/01/2018 2:22 PM CASSANDRA DEVELOPER): Glucoses a little high, but she has bruising with Victoza so she may benefit by changing to weekly Ozempic, which is a little stronger, as well. Jardiance is been ineffective, so we may need to provide preauthorization for Invokana Assessment & Plan (07/05/2018 9:23 AM CASSANDRA DEVELOPER): A1c above goal. We stressed importance of increased exercise, reduce calories, weight loss. Could consider switching Victoza to ozempic. Otherwise does not tolerate metformin or sulfonylureas. May need insulin soon. She is directed to follow up with her staffing analyst more quickly than her next scheduled appointment in November. Assessment & Plan (08/26/2017 4:26 PM CASSANDRA DEVELOPER): Continue current medication regimen and follow up with her staffing analyst as they direct. Low carb diet weight loss recommended. Check blood sugars once daily. Start atorvastatin and check lipids and LFTs in 3-4 months. Anxiety state 12/17/2013 Overview (11/07/2016): ANXIETY STATE NOS Benign hypertension 12/17/2013 Overview (11/07/2016): BENIGN HYPERTENSION Assessment & Plan (07/13/2024 12:21 PM CASSANDRA DEVELOPER): - Above goal today - Encouraged her [...] monitor. Assessment & Plan (06/08/2023 5:25 PM CASSANDRA DEVELOPER): Stop amlodipine with current issues of swelling. Pressure currently well controlled and should monitor at home Assessment & Plan (01/21/2023 9:49 AM CDT): Blood pressure well controlled on lisinopril Assessment & Plan (09/04/2022 2:34 PM CASSANDRA DEVELOPER): Blood pressure well controlled on her lisinopril. Assessment & Plan (08/02/2022 12:15 PM CASSANDRA DEVELOPER): Increase lisinopril to 20 mg daily. Monitor blood pressure at home call back if no improvement. Assessment & Plan (01/17/2022 10:21 AM CDT): Well controlled on the current regimen. Avoidance of salt, proper body weight, and routine exercise recommended. Assessment & Plan (07/17/2021 2:06 PM CASSANDRA DEVELOPER): Well controlled on the current regimen. Avoidance of salt, proper body weight, and routine exercise recommended. Assessment & Plan (04/22/2021 8:24 AM CDT): Well controlled on the current regimen. Avoidance of salt, proper body weight, and routine exercise recommended. Assessment & Plan (07/13/2020 8:34 AM CASSANDRA DEVELOPER): Well controlled on the current regimen. Avoidance of salt, proper body weight, and routine exercise recommended. Assessment & Plan (07/08/2019 8:42 AM CASSANDRA DEVELOPER): Well controlled on the current regimen. Avoidance of salt, proper body weight, and routine exercise recommended. Assessment & Plan (09/01/2018 2:21 PM CASSANDRA DEVELOPER): Blood pressure close to target, working on diet and lifestyle Assessment & Plan (07/05/2018 9:23 AM CASSANDRA DEVELOPER): Well controlled on the current regimen. Avoidance of salt, proper body weight, and routine exercise recommended. Assessment & Plan (08/26/2017 4:25 PM CASSANDRA DEVELOPER): Well controlled on the current regimen. Avoidance of salt, proper body weight, and routine exercise recommended. Anemia 12/29/2012 Extrinsic asthma 08/19/2012 Overview (06/03/2019): Description: frequent flares Assessment & Plan (08/26/2024 6:08 PM CASSANDRA DEVELOPER): Recent exacerbation due to CAP followed by RSV Symptoms improved Continue present plan and medication--albuterol prn, montelukast Assessment & Plan (07/13/2020 8:36 AM CASSANDRA DEVELOPER): Doing well on her Symbicort. Okay to discontinue and use albuterol only as needed. Restart Symbicort if uses her albuterol more than 2 times a week. Sleep apnea syndrome 04/01/2012 Overview (11/12/2017): Description: CPAP Assessment & Plan (01/06/2024 9:08 AM CDT): Patient is compliant with the CPAP machine and gets symptomatic relief. Assessment & Plan (08/02/2022 12:15 PM CASSANDRA DEVELOPER): Patient is compliant with the CPAP machine and gets symptomatic relief. Assessment & Plan (07/17/2021 2:06 PM CASSANDRA DEVELOPER): Repeat sleep study confirmed obstructive sleep apnea [...] syndrome. Assessment & Plan (07/13/2020 8:34 AM CASSANDRA DEVELOPER): Patient is compliant with the CPAP machine and gets symptomatic relief. Assessment & Plan (07/08/2019 8:42 AM CASSANDRA DEVELOPER): Patient is compliant with the CPAP machine [...] legs Assessment & Plan (06/15/2023 10:47 AM CASSANDRA DEVELOPER): Improved after addition of doxycycline to her Bactrim. Call back if symptoms worsen after doxycycline runs out Assessment & Plan (06/08/2023 5:25 PM CASSANDRA DEVELOPER): Seems like cellulitis slow to improve either [...] yearly. Colonoscopy due March 2027. Follow-up the basin finish operator tig welder for breast exam pelvic exam as they direct. Will see her back in about 6 months sooner if needed. Assessment & Plan (08/02/2022 12:17 PM CASSANDRA DEVELOPER): Flu shot each May. Tetanus booster every 10 years. Pneumovax completed. COVID booster recommended. Mammogram yearly. Colonoscopy due March 2027. Follow-up the basin finish operator tig welder for breast exam pelvic exam as they direct. Will see her back in 6 months with lab sooner if needed. Assessment & Plan (07/17/2021 2:08 PM CASSANDRA DEVELOPER): Flu shot each May. Tetanus booster every 10 years. Pneumovax completed. COVID vaccine completed. Mammogram yearly. Colonoscopy ordered and she should verify coverage before proceeding. Follow-up the basin finish operator tig welder for breast exam and pelvic exam as they direct. We will see her back in 1 year for physical and fasting lab sooner if needed. Assessment & Plan (07/13/2020 8:35 AM CASSANDRA DEVELOPER): Flu shot each May. Tetanus booster every 10 years. She has had a Pneumovax. Mammogram was abnormal back in August and she has delayed follow-up studies until now and she is urged to get her diagnostic and ultrasound studies done at her earliest convenience and she is aware of the risks posed her health with delay in proceeding. Follow-up the basin finish operator tig welder for breast exam and pelvic exam as they direct. We will see her back in 1 year for wellness visit fasting lab sooner if needed. Assessment & Plan (07/08/2019 8:43 AM CASSANDRA DEVELOPER): Flu shot each May. Tetanus booster every 10 years. Mammogram ordered. Will see her back in 1 year for physical and fasting lab sooner if needed. Assessment & Plan (07/05/2018 9:24 AM CASSANDRA DEVELOPER): Tetanus booster today. Flu shot each May. Mammogram ordered. Patient should follow-up the basin finish operator tig welder breast exam and pelvic exam. We will see her back in 1 year for wellness visit fasting lab sooner if needed. Assessment & Plan (08/26/2017 4:27 PM CASSANDRA DEVELOPER): Flu shot each May. Tetanus booster every 10 years. See her basin finish operator tig welder for breast exam mammogram and Pap smear is a direct. We will see her back in 1 year with fasting lab sooner if needed. Morbid obesity 08/26/2017 07/05/2018 Assessment & Plan (08/26/2017 4:28 PM CASSANDRA DEVELOPER): Patient is encouraged to lose weight with [...] Type Department Care Team Description 09/09/2024 Documentation [facility] at [address] [address] Tiffanie Cantu, PT PT Discharge 09/02/2024 Telephone [facility] at [address] [address] Tiffanie Cantu, PT Cancel 08/30/2024 Telephone [facility] at [address] [address] Ele Vazquez, PT Cancel 08/24/2024 Telephone [facility] [address] [phone] Yuki Mccain RN 08/23/2024 11:00 AM CASSANDRA DEVELOPER Office Visit [facility] Primary Care - [facility] [id number] [place] [address] [address], [place] [address] Lynn Rodriguez MD Mild intermittent extrinsic asthma without complication (Primary Dx); Impaired mobility; Acute hypoxic respiratory failure (HCC); History of respiratory syncytial virus (RSV) vaccination; Class 3 severe obesity due to excess calories with serious comorbidity and body mass index (BMI) of 45.0 to 49.9 in adult (HCC) 08/19/2024 Telephone [facility] Home Care Services [address] [place] [id number] Sarah Baird, RN Medical Question/Miscellane ous 08/19/2024 Telephone [facility] [address] [place] [id number] Sarah Baird, RN 08/18/2024 Telephone [facility] [address] [place] [phone] Sarah Baird, RN 08/17/2024 Telephone [facility] [address] [place] [phone] Sarah Baird, RN 08/09/2024 Orders Only [facility] Endocrinology Metabolism and Lipid [address] [facility] [address] [place] [address] [place] [id number] Stephanie Sanodval RMA Uncontrolled type 2 diabetes mellitus with hyperglycemia (HCC) 08/09/2024 Telephone [facility] at [address] [address] Ele Vazquez, PT Cancel 08/05/2024 Telephone [facility] at [address] [address] Ele Vazquez, PT Cancel (excused) 08/04/2024 Telephone [facility] at [address] [phone] Tiffanie Cantu, PT Appointment 07/29/2024 12:00 PM CASSANDRA DEVELOPER Therapy [facility] at [address] [address] Tiffanie Cantu, PT Impaired mobility (Primary Dx); Lymphedema 07/29/2024 Plan of Care Documentation [facility] at [address] [address] 07/13/2024 9:00 AM CASSANDRA DEVELOPER Office Visit [facility] Endocrinology Metabolism and Lipid [address] [facility] [address]th [place] [address] [place] [phone] Shirley Teixeira PA Uncontrolled type 2 diabetes mellitus with hyperglycemia (HCC) (Primary Dx); Morbid obesity with BMI of 50.0-59.9, adult (HCC); Benign hypertension; Mixed hyperlipidemia; Vitamin D deficiency; 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 user; shelter (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) from Last 3 Months Immunizations Immunization Administration Dates Next Due Influenza, Quadrivalent, Rosita l Culture-based MDCK, Preservative Free, Antibiotic Free, Intramuscular 05/13/2023,05/23/2022 Influenza, Quadrivalent, Spl it, Intramuscular 05/03/2015 Influenza, Quadrivalent, Spl it, Preservative Free, Intramuscular 05/16/2020,05/07/2018 Influenza, Unspecified 05/16/2021,2020,04/22/2021(Defer red: Patient Refused),03/19/2021(Deferred: Patient Refused),05/12/2019,05/07/2017 [employer] SARS-CoV-2 Vaccination 10/05/2020 Pneumococcal Conjugate Pcv20 04/06/2024 Pneumococcal Polysaccharide PPV23 08/03/2010, Td, adsorbed 07/05/2018 Tdap 10/04/2007 Surgical History Surgery Date Site/Laterality Comments OTHER SURGICAL HISTORY Sleep apnea: CPAP OTHER SURGICAL HISTORY Internal derangement of the knee: knee arthroscopy MYOMECTOMY Myomectomy COLONOSCOPY 04/02/2022 KNEE ARTHROSCOPY W/ LATERAL RELEASE ABDOMINAL SURGERY Medical History Medical History Date Comments Hypertension Hypertension Hx Other Medical Hyperlipidemia; Comments: [facility] 04/11/2014 - Hx Other Medical Diabetes; Comme nts: [facility] 04/11/2014 - Hx Other Medical Seasonal allerg [...] IVF transfer 2015 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 Morbid obesity (HCC) [...] on file Legal Sex Female 11:54 PM CASSANDRA DEVELOPER Gender Identity Female 09/19/2020 8:37 AM CASSANDRA DEVELOPER Sexual Orientation Straight 09/19/2020 8: 37 AM CASSANDRA DEVELOPER Obstetrics History Para Term AB IAB SAB Ectopic Multiple Livin g Live Births 1 1 1 Date Outcome GA Total Labor Labor/2nd/3rd Weight Sex Type Anes PTL Guillermina A1 A5 Name Clin Term Last Filed Vital Signs Vital Sign Reading Time Taken Comments Blood Pressure 124/88 08/23/2024 10:35 AM CASSANDRA DEVELOPER Pulse 91 08/23/2024 10:35 AM CASSANDRA DEVELOPER Temperature 36.5 C (97.7 F) 08/23/2024 10:35 AM CASSANDRA DEVELOPER Respiratory Rate 24 08/23/2024 10:35 AM CASSANDRA DEVELOPER Oxygen Saturation 98% 08/23/2024 10:35 AM CASSANDRA DEVELOPER Inhaled Oxygen Concentration - - Weight 138 kg (304 lb 3.8 oz) 08/23/2024 10:35 A M CASSANDRA DEVELOPER Height 167.6 cm (5' 6 ) 08/23/2024 10:35 AM CASSANDRA DEVELOPER Body Mass Index 49.1 08/23/2024 10:35 AM CASSANDRA DEVELOPER Plan of Treatment Health Maintenance Due Date [...] HEMOGLOBIN A1C Routine 07/13/2024 9 :08 AM CASSANDRA DEVELOPER Uncontrolled type 2 diabetes mellitus with hyperglycemia (HCC) POCT GLUCOSE 62504 Routine 07/13/2024 9: 08 AM CASSANDRA DEVELOPER Uncontrolled type 2 diabetes mellitus with hyperglycemia [...] Results * POCT glucose (07/13/2024 9:08 AM CASSANDRA DEVELOPER) Glucose Blood, POC 161 mg/dL Blood 07/13/2024 9:08 AM CASSANDRA DEVELOPER Shirley CHUN POINT OF CARE TEST ORDERA BLES Final Result * POCT hemoglobin A1c (07/13/2024 9:08 AM CASSANDRA DEVELOPER) Pathologist [facility] Hemoglobin A1C, POC 11.7 4.0 - 5.6 % Blood 07/13/2024 9:08 AM CASSANDRA DEVELOPER Result [facility] Shirley CHUN POINT OF CARE TEST ORDERA BLES Final Result * (ABNORMAL) Comprehensive metabolic panel (12/29/2023 1:40 PM CDT) Pathologist [facility] Glucose 121(H) 65 - 99 mg/dL Aleshia IvisysPaula [facility] Comment: Fasting reference interval For someone without known diabetes, a glucose value between 100 and 125 mg/dL is consistent with prediabetes and should be confirmed with a follow-up test. BUN 15 7 - 25 mg/dL Aleshia Ivisys ian Sheehan Creatinine 0.69 0.50 - 0.99 mg/dL Aleshia Ivisys ian Sheehan eGFR 108 > OR = 60 mL/min/1.7 3m2 [facility] ian [facility] BUN/creat ratio SEE NOTE: 6 - 22 (calc) Aleshia IvisysPaula Sheehan Comment: Not Reported: BUN and Creatinine are within reference range. Sodium 138 135 - 146 mmol/L Aleshia IvisysPaula Sheehan Potassium, pl 4.1 3.5 - 5.3 mmol/L [facility] Chloride 97(L) 98 - 110 mmol/L Aleshia [facility]Paula [facility] CO2 30 20 - 32 mmol/L [employer]- ian Sheehan Calcium 9.7 8.6 - 10.2 mg/dL Aleshia [facility] Protein, sr 7.0 6.1 - 8.1 g/dL [employer] Albumin 4.3 3.6 - 5.1 g/dL Aleshia [facility]- ian Sheehan GLOBULIN 2.7 1.9 - 3.7 g/dL (calc) Aleshia IvisysPaula Sheehan Alb/glob ratio 1.6 1.0 - 2.5 (calc) Aleshia IvisysPaula Sheehan Bilirubin, total 0.6 0.2 - 1.2 mg/dL [facility] Alk phos 46 31 - 125 [...] ORDERABLES Final R esult Performing Organization Address City/[facility]/ZIP Co de Phone Number [facility] [address] [place] [address] * Albumin Creatinine Ratio, Urine (12/29/2023 12:26 PM CDT) Albumin Ur 14.1 mg/L Comment: Interpretive Data No reference range established. Current interpretive data was last revised 2018. Creatinine Ur 117.0 mg/dL [facility] Comment: Interpretive Data No reference range established. Current interpretive data was last revised 2018. Albumin Creatinine Ratio, Ur 12 1 - 29 mg/g [facility] Urine 12/29/2023 12:2 6 PM CDT 12/29/2023 1:04 PM CDT Shirley CHUN LAB URINE ORDERABLES Flora l Result Performing Organization Address City/[facility] Co de Phone Number [facility] [place] [address] * (ABNORMAL) Lipid panel (12/29/2023 12:26 PM [...] revised on 2018. Triglycerides 265(H) <=149 mg/dL [facility] Comment: Interpretive Data Ages < [...] revised on 2018. HDL 87 >=40 mg/dL [facility] Comment: Interpretive Data Ages < or [...] on 2018. LDL, calculated 68 <=129 mg/dL [facility] Comment: Interpretive Data Ages < [...] revised on 2018. Non-HDL Cholesterol 121 mg/dL [facility] Comment: Interpretive Data Ages < or [...] last revised on 2018. Chol/HDL ratio 2 [facility] Blood 12/29/2023 12:2 6 PM CDT 12/29/2023 1:04 PM CDT us Shirley CHUN LAB BLOOD ORDERABLES Flora dowd Result [facility] One [facility] [place] [address] * Screening Mammogram Bilateral W Vincenzo (12/29/2023 9:26 AM CDT) Anatomical Region Laterality Modality Breast Bilateral Mammography Narrative 12/30/2023 2:01 PM CDT Mammogram Technique: Bilateral Digital Breast Tomosynthesis, Bilateral C-view 2D Screening mammogram. Views obtained: bilateral craniocaudal and bilateral mediolateral oblique. Computer Aided Detection was performed. Mammogram Findings: The present examination has been compared to prior imaging studies performed at [facility]. [facility] on 01/01/2022 and 02/25/2023, and at [facility]. [place], [place] on 09/12/2020. There are scattered areas [...] compared to prior imaging studies performed at [facility]. [facility] on 01/01/2022 and 02/25/2023, and at [facility]. [place], [place] on 09/12/2020. There are scattered areas [...] Camacho MD - 04/02/2022 9:28 AM CDT [facility] Patient Name: Camila Huitron Procedure Date: 04/02/2022 9:28 AM Date of : 1975 Admit Type: Outpatient Age: 46 Gender: Female Attending MD: Ad Camacho M.D. Room: [facility] ENDOSCOPY ROOM 2 Note Status: Finalized Patient [...] scope was passed under direct vision. TheColonoscope [id number] was introduced through the anus and advanced [...] 9:28 AM Procedure Code(s): --- Professional --- 45002, Colonoscopy, flexible; with biopsy, single or multiple Diagnosis Code(s): --- Professional --- Z12.11, Encounter for screening for malignant neoplasm of colon D12.3, Benign neoplasm of transverse colon (hepatic flexure orsplenic flexure) D12.4, Benign neoplasm of descending colon D12.8, Benign neoplasm of rectum CPT copyright 2020 [employer]. All rights reserved. The codes documented in this report are preliminary and upon tattoo designer reviewmay be revised to meet current compliance requirements. Recognized by the [employer] for promoting quality in endoscopy Ad Camacho MD ENDOSCOPY PROCEDURES Final Resul t * Diabetic Foot Exam (03/26/2021) Adamariss Art Staley MA - 03/26/2021 In care everywhere Historical Provider HEALTH MAINTENANCE Final Result from Last 3 Months or Most Recently Relevant to Health Maintenance Insurance [employer] [facility] H[facility]/PPO Address: [address] [address] [place] [address] R [facility] H[facility]/PPO Address: [address] [address] Advance Directives For more information, please contact: [phone] * Full Code (Latest Code Status on File) Date Activated Date Inactivated Comments 04/02/2022 9:27 AM 04/02/2022 4:47 PM * Full Code Date Activated Date Inactivated Comments 04/02/2022 9:27 AM 04/02/2022 9:27 AM Care Teams Oracle Iam Consultant Relationship Specialty [place] [address] [facility] [address] [place] [address] PCP - General Internal Medicine 04/06/24 Ann Serrano MD Referring Physician Endocrinology Diabetes & Metabolism 06/08/20
--- OUTSIDE RECORDS SUMMARY | 2024-10-03 04:20 | XMS_ITS | Encounter Summary ---
Author Organization [facility] Healthcare Address [address] [place] [address] Care Team Providers Care Director Trading Name Role Phone Ann Serrano MD Unavailable [phone] Lynn Rodriguez MD Primary Care Provider Reason for Visit * Reason Onset Date Comments Cancel 09/02/2024 Encounter Details Date Type Department Care Team (Late st Contact Info) Description 09/02/2024 Telephone [facility] [place] [address] Tiffanie Cantu, PT Cancel Social History Tobacco [...] on file Legal Sex Female 11:54 PM MEMBER OF CONGRESS Gender Identity Female 09/19/2020 8:37 AM MEMBER OF CONGRESS Sexual Orientation Straight 09/19/2020 8: 37 AM MEMBER OF CONGRESS documented as of this encounter Miscellaneous Notes * Telephone Encounter - Andria Ge - 09/02/2024 10:13 AM CST Pt cancelled their NEXT SCHEDULED Appt that was scheduled on 09/05/24. Reason Given: Patient comments: still recovering from hospital stay; limited mobility Action Taken: No Action Required ER [facility] CONGRESS documented in this encounter Plan of Treatment Not on file documented as of this encounter Visit Diagnoses Not on filedocumented in this encounter Care Teams Director Trading Relationship Specialty [place] [address] [address] PCP - General Internal Medicine 04/06/24 Ann Serrano MD Referring Physician Endocrinology Diabetes & Metabolism 06/08/20 documented as of this encounter
--- OUTSIDE RECORDS SUMMARY | 2024-10-03 04:20 | XMS_ITS | Continuity of Care Document ---
Author Organization [facility] Address [address] [place] [address] Phone Care Team Providers Care Piano Stringer Name Role Phone Alex Ingram MD Unavailable [...] Diagnoses Date Provider Providers Copied on Encounter [facility], [address], [place], [place], [id number], [place] [phone] SEC [place] Professional Complete Exam (chief complaint) Diabetes mellitus without complication 3 Juan Jose Johnson. [address] [facility], [place], [place], [id number], [place]. tel:[phone] Specialist: Ann Serrano MD, [address] [place], [address]. tel:[phone] alist: Ann Serrano MD, [facility] [place], [address]. tel:[phone] ring Provider: Kishor Saleh MD, [address] [facility] [address], [place], [address]. tel:[phone] [facility], [address], [place], [place], [address], [place] tel:[phone] SEC [place] Professional diabetic eye exam (chief complaint) Diabetes mellitus without complicationE pidemic keratoconjunc tivitis of both eyes 2 Juan Jose Johnson. [address] [facility], [address], [place], [place], [id number], [place]. tel:[phone] Specialist: Ann Serrano MD, [address] [place], [address]. tel:[phone] ring Provider: Kishor Saleh MD, [address] [facility] [address], [place], [address]. tel:[phone] Office/outpa tient Visit, Est [facility], [address], [place], [place], [address], [place] tel:[phone] SEC [place]re [place] Professional 2 week EKC f/u (chief complaint) Epidemic keratoconjunc tivitis of both eyes 1 Juan Jose Johnson. [address], [place], [place], [address], [place]. tel:[phone] Specialist: Ann Serrano MD, [address] [place], [address]. tel:[phone] ring Provider: Kishor Saleh MD, [address] [facility] [address], [place], [address]. tel:[phone] Office/outpa tient Visit, [facility], [address] [place] [address] [address], [place], [place], [address], tel:[phone] SEC Alexandre [place] Professional Complete Exam (chief complaint) Epidemic keratoconjunc tivitis of both eyesCorneal opacity of both eyes 1 Juan Jose Johnson. [address], [address], [place], [place], [address], [place]. tel:[phone] Specialist: Ann Serrano MD, [address] [place], [address]. tel:[phone] ring Provider: Kishor Saleh MD, [address] [facility] [address], [place], [address]. tel:[phone] Family History Family Member Type Diagnosis Age At Onset Problem Family history of Diabetes m anna Payers Payer name Insurance type Covered green party ID Boby altman(s) R CI [id number] Social History Type Description Quantity Date Captured [...]
--- OUTSIDE RECORDS SUMMARY | 2024-10-03 04:20 | XMS_ITS | Encounter Summary ---
Author Organization [facility] Address [address] [place] [address] Care Team Providers Care Leadership Program Intern Name Role Phone Tiffany Cox MD Primary Care Provider Unavailable Kishor Saleh MD Primary Care Provider Encounter Details Date Type Department Care Team (Late st Contact Info) Description 07/03/2023 Lab Requisition [facility] - [facility] Lab [address] [place] [address] [place] [address] [address] Social History Tobacco Use Types [...] IMMUNOFLUORESCENT STUDY DERM Routine 07/01/2023 3:33 AM DATABASE OPERATOR documented in this encounter Results * IMMUNOFLUORESCENT STUDY DERM (07/01/2023 3:33 AM DATABASE OPERATOR) Case Report Dermatopathol ogy Report Case: [id number] Authorizing Provider: Kendrick Christopher MD Collected: 07/01/2023 03:33 AM Ordering Location: [facility] Received: 07/03/2023 12:13 PM Pathologist: Bella Schwab MD Specimen: Skin, right superior han 3:46 PM [facility] DERMAT[facility] Final Diagnosis Specimen A. SKIN, right superior han: COLLOID BODIES (L98.9) (see microscopic description) (see fixed tissue results) 3 3:46 PM [facility] DERMAT[facility]OR[facility] Direct Immunofluorescence Report - Specimen A Specimen A IgA IgM IgG C3 CollV Fibrinogen Epidermis Negative Negative Negative Negative Negative Negative Basement Membrane Negative Negative Negative Negative 2+ Negative Vessels Negative Negative Negative Negative 2+ Negative Interstitium Colloid Colloid Colloid Negative Negative Non specific 3 3:46 PM [facility] DER[facility] Clinical History Rash; R/O Leukocytoclas tic Vasculitis, Livedo Reticularis 3:46 PM [facility] Gross Description Specimen A: Received is one Jatinder's media filled container labeled with the patient's name and designated right superior han. The specimen consists of a punch biopsy measuring 5x4x4 mm. The specimen is submitted in whole for direct immunofluores cence testing. 3:46 PM [facility] DER[facility] Microscopic Description Specimen A. SKIN, [...] See fixed tissue results. 3 3:46 PM [facility] DER[facility] Disclaimer An external and internal positive and negative controls are appropriate for the histochemical , immunohistoch emical and immunofluores cence stain(s) in this case (if any), except where stated explicitly. The performance characteristi cs of the stain(s) cited in this report were developed and its performance characteristi c determined by the Dermatopathol ogy Laboratory at [facility], directed by Dr. Arnol Perea. These tests need not be, and therefore are not, approved by the [place] Food and Drug Administratio n. The tests are used for clinical purposes. Billing Codes Specimen Charges Stain Charges 42037 75089 61081 02164 17927 51446 1 1 1 1 1 1 3 3:46 PM DATABASE OPERATOR DERMATOPATHOLOGY LABORATORY Embedded Images 3 3:46 PM DATABASE OPERATOR DERMATOPATHOLOGY LABORATORY Pathology/Cytolo gy TISSUE SPECIMEN FROM SKIN / Unknown 07/01/2023 3:33 AM DATABASE OPERATOR 07/03/2023 12:13 PM DATABASE OPERATOR Kendrick Christopher MD LAB - PATHOLOGY/CY TOLOGY ORDERABLES DERMATOPATHOLOGY LABORATORY [facility] - Department of Dermatology [facility] Specialized Medicine [address] [place] [address], [address] [phone] documented in this encounter Visit Diagnoses Not on filedocumented in this encounter Additional Health Concerns Infection Onset Date Last Indicated Resolved Time COVID-19 Under Investigation 08/13/2024 08/13/2024 08/13/2024 11:30 PM DATABASE OPERATOR documented as of this encounter Care Teams Leadership Program Intern Relationship Specialty Start Date End Date Tiffany Cox MD PCP - General Internal Medicine 05/16/13 07/30/23 Kishor Saleh MD [address] [facility] [address] [place] [address] [place] [address] PCP - General Internal Medicine 07/31/23 documented as of this encounter
--- OUTSIDE RECORDS SUMMARY | 2024-10-03 04:20 | XMS_ITS | Encounter Summary ---
Author Organization [facility] Address [address] [place] [address] Phone Care Team Providers Care Controlled Atmospheric Furnace Brazer Name Role Phone Kishor Saleh MD Primary Care Provider [phone] Ann Serrano MD Unavailable [phone] No, Physician Primary Care Provider [phone] Kishor Saleh MD Primary Care Provider [phone] Lynn Rodriguez MD Primary Care Provider Encounter Details Date Type Department Care Team (Late st Contact Info) Description 09/30/2017 Orders Only [facility] ProviderStephenie MD [address] [place] [address] Social History Tobacco Use Types Packs/Day Years Used Date Smoking Tobacco: Never Smokeless Tobacco: Never Alcohol Use Standard Drinks/Week Comments No 0 (1 standard drink = 0.6 oz pur e alcohol) Comments Unknown Sex and Gender Information Value Date Recorded Sex Assigned at Not on file Legal Sex Female 11:54 PM COMMUNICATION CENTER COORDINATOR Gender Identity Female 09/19/2020 8:37 AM COMMUNICATION CENTER COORDINATOR Sexual Orientation Straight 09/19/2020 8: 37 AM COMMUNICATION CENTER COORDINATOR documented as of this encounter Plan of Treatment Not on file documented as of this encounter Procedures Procedure Name Priority Date/Time Associated Diagnosis Comments DISCHARGE LABORATORY CUMULATIVE REPORT 09/30/2017 12:00 AM COMMUNICATION CENTER COORDINATOR documented in this encounter Results * DISCHARGE LABORATORY CUMULATIVE REPORT (09/30/2017 12:00 AM COMMUNICATION CENTER COORDINATOR) Narrative 09/30/2017 12:00 AM COMMUNICATION CENTER COORDINATOR Ordered by an unspecified provider. us Historical Provider LAB BLOOD ORDERABLES Flora l Result documented in this encounter Visit Diagnoses Not on filedocumented in this encounter Additional Health Concerns Infection Onset Date Last Indicated Resolved Time COVID: Suspected 08/13/2022 08/13/2022 08/13/2022 1:16 PM COMMUNICATION CENTER COORDINATOR documented as of this encounter Care Teams Controlled Atmospheric Furnace Brazer Relationship Specialty Start Date End Date Kishor Saleh MD PCP - General 09/28/08 11/16/23 No, Physician PCP - General 11/17/23 12/28/23 Kishor Saleh MD [address] [facility] [address], [place] [address] PCP - General Internal Medicine 12/29/23 04/05/24 [place] [address] [facility] [address], [place] [address] PCP - General Internal Medicine 04/06/24 Ann Serrano MD Referring Physician Endocrinology Diabetes & Metabolism 06/08/20 documented as of this encounter
--- OUTSIDE RECORDS SUMMARY | 2024-10-03 04:21 | XMS_ITS | Encounter Summary ---
Author Organization [facility] Address [address] [facility] [place] [address] Care Team Providers Care Auto Body Detailer Name Role Phone Tiffany Cox MD Primary Care Provider Unavailable Kishor Saleh MD Primary Care Provider Encounter Details Date Type Department Care Team (Late st Contact Info) Description 07/03/2023 Lab Requisition [facility] Lab [address] [place] [id number] [place] [address] [facility] [facility] [address] [place] [address] [place] [address] Social History Tobacco Use Types Packs/Day [...] Under Investigation 08/13/2024 08/13/2024 08/13/2024 11:30 PM SAW RUNNER documented as of this encounter Care Teams Auto Body Detailer Relationship Specialty Start Date End Date Tiffany Cox MD PCP - General Internal Medicine 05/16/13 07/30/23 Kishor Saleh MD [address] [place] [address] [address] [place] [address] [place] [address] PCP - General Internal Medicine 07/31/23 documented as of this encounter
[2024-10-03] MEDS: IPRATROPIUM 0.5 MG/ALBUTEROL SULFATE 2.5 MG AMPUL.NEB 3 ML INHALATION ×3 (04:31→14:16)
[2024-10-03] MEDS: SODIUM CHLORIDE 0.9% IV 1,000 ML 999 ML IV CONT (04:41)
[2024-10-03 04:42] LABS: Alveolar/Arterial O2 Gradient 41.1 mmHg; Base Excess ABG 2.7 mEq/l (+/-2.0); Fractional Inspired Oxygen 21 %; HCO3 ABG 25.5 mEq/l (22.0-26.0); Modified Allen's Test Pass; Oxygen Content ABG 18.1 %vol (16.0-22.0); Oxygen Saturation ABG 95.1 % (95.0-100.0); PCO2 ABG 33.8 mmHg (35.0-45.0); PO2 ABG 68.2 mmHg (80.0-100.0); PO2 FiO2 Ratio Arterial Blood 3.25 %; Site Drawn RIGHT RADIAL; Total Hemoglobin 13.8 g/dL (12.0-18.0); pH ABG 7.496 (7.350-7.450)
[2024-10-03 05:05] LABS: Lactic Acid Reflex 2.4 mmol/L (0.7-2.0); Magnesium 1.3 mg/dL (1.6-2.3)
[2024-10-03 05:16] LABS: INR 0.9; Prothrombin Time 12.5 Seconds (11.1-14.7)
[2024-10-03 05:17] LABS: Partial Thromboplastin Time 26.9 Seconds (22.3-36.8)
[2024-10-03 05:18] LABS: NT Pro B Type Natriuretic Pept 66 pg/mL (19.9-100); Troponin I 0.032 ng/mL (0.000-0.034)
[2024-10-03 05:24] LABS: Procalcitonin 0.1 ng/mL
[2024-10-03] MEDS: MAGNESIUM SULF 2 GM/WATER 50ML 2 GM/50 ML BAG IVPB (05:54)
--- NOTE | 2024-10-03 06:09 | ED_ITS ---
HPI - General Adult General Chief complaint: Shortness of Breath/Dyspnea Stated complaint: real sob again, elevated HR and BP Time Seen by Provider: 10/03/24 04:15 History of Present Illness HPI narrative: Patient 49-year-old female who presents emergency department with chief complaint of shortness of breath high heart rate and blood pressure. Patient states she has been feeling short of breath since this morning reports that she noticed that her oxygen levels were lower than where it has been in her heart rates been up in the 130s and 140s. The patient reports he has also had some nausea vomiting as well patient was recently admitted to the hospital and was discharged the patient at that time had an elevated hemidiaphragm and acute hypoxic respiratory failure Related Data Home Medications ?Medication ?Instructions ?Recorded ?Confirmed ?Last Taken ?Type atorvastatin 20 mg tablet 20 mg PO HS 10/15/20 09/23/24 05/24/23 History loratadine 10 mg tablet (Claritin) 10 mg PO DAILY 10/15/20 09/23/24 05/24/23 History montelukast 10 mg tablet 10 mg PO HS 10/15/20 09/23/24 Unknown History insulin lispro-aabc 100 unit/mL 1 sliding scale dose subcut AC 05/25/23 09/23/24 05/24/23 History subcutaneous pen (Lyumgarimav KwAlan U-100 Insulin) tirzepatide 5 mg/0.5 mL 10 mg subcut WEEKLY 05/25/23 09/23/24 07/28/24 History subcutaneous pen injector (Mounjaro) venlafaxine 150 mg 150 mg PO QPM 05/25/23 09/23/24 05/24/23 History capsule,extended release 24 hr albuterol sulfate 2.5 mg/3 mL 2.5 mg inhalation DAILY PRN 08/10/23 09/23/24 Unknown History (0.083 %) solution for nebulization Shortness Of Breath cetirizine 10 mg tablet (All Day 10 mg PO DAILY 08/10/23 09/23/24 07/30/24 History Allergy (cetirizine)) ergocalciferol (vitamin D2) 50,000 unit PO .COMPLEX 08/10/23 09/23/24 07/27/24 History fluticasone propionate 50 1 spray intranasal DAILY PRN 08/10/23 09/23/24 Unknown History mcg/actuation nasal allergy symptoms spray,suspension prednisone 20 mg tablet 40 mg PO DAILY@0800 08/10/23 09/23/24 Unknown History cyclobenzaprine 10 mg tablet 10 mg PO HS 07/31/24 09/23/24 Unknown History diclofenac sodium 75 mg 75 mg PO BID 07/31/24 09/23/24 Unknown History tablet,delayed release folic acid 1 mg tablet 1 mg PO DAILY 07/31/24 09/23/24 Unknown History gabapentin 300 mg capsule 300 mg PO TID 07/31/24 09/23/24 Unknown History hydroxychloroquine 200 mg tablet 400 mg PO HS 07/31/24 09/23/24 Unknown History insulin glargine 100 unit/mL (3 45 unit subcut BID 07/31/24 09/23/24 07/30/24 History mL) subcutaneous pen (Lantus Solostar U-100 Insulin) lisinopril 20 mg tablet 20 mg PO DAILY 07/31/24 09/23/24 Unknown History methotrexate sodium 2.5 mg tablet 12.5 mg PO WEEKLY 07/31/24 09/23/24 07/28/24 History pantoprazole 40 mg tablet,delayed 40 mg PO DAILY 07/31/24 09/23/24 Unknown History release acetaminophen 500 mg tablet 1,000 mg PO BID 09/23/24 09/23/24 Unknown History famotidine 20 mg tablet (Acid 20 mg PO HS 09/23/24 09/23/24 Unknown History Controller) magnesium 200 mg tablet 400 mg PO DAILY 09/23/24 09/23/24 Unknown History magnesium salicylate 162.5 1 tablet PO DAILY 09/23/24 09/23/24 Unknown History mg-caffeine 50 mg tablet (Diurex) potassium 99 mg tablet 99 mg PO HS 09/23/24 09/23/24 Unknown History Allergies Allergy/AdvReac Type Severity Reaction Status Date / Time amoxicillin AdvReac Unknown Nausea and Verified 07/31/24 08:23 Vomiting glipizide AdvReac Unknown NAUSEA AND Verified 02/06/24 14:29 VOMITING hydrocodone AdvReac Unknown Nausea and Verified 02/06/24 14:29 Vomiting metformin AdvReac Unknown Nausea and Verified 02/06/24 14:29 Vomiting Review of Systems 2 Review of Systems: A 10 system review of systems was completed on the patient and is negative except for what is stated in the HPI. Nursing and ancillary documentation was reviewed. [facility] Past Medical History Medical History Vasculitis Depression JEREMY on CPAP Hypertension Hypercholesterolemia Diabetes Surgical History Surgical History H/O arthroscopy H/O myomectomy Family History Family History Mother Diabetes mellitus Myocardial infarction Uterine cancer Father Cancer of blood vessel Sibling Diabetes mellitus Social History Social History Smoking status: Never smoker Alcohol intake: current Drinks per week: 1 Substance use: never Substance use type: does not use Do You Feel Safe in your Home?: Yes Lack of Transportation: No Lack of Food: Never True Current Housing: I Have Housing Concerned About Future Housing: No Difficulty Paying Gas/Electric Bills: No Difficulty Paying for Meds: No Currently Unemployed: No Education: High School Diploma/GED Difficulty w/ Childcare or Family Care: No Spiritual care concerns: No Exam 2 Narrative: Differential diagnosis includes pulmonary embolism, upper respiratory infection, influenza, COVID, RSV, Course Vital Signs Vital signs: Vital Signs Temperature 36.4 C 10/03/24 02:28 Pulse Rate 129 H 10/03/24 02:28 Respiratory Rate 16 10/03/24 02:28 Blood Pressure 180/109 H 10/03/24 02:28 Pulse Oximetry 93 10/03/24 02:28 Temperature 36.4 C 10/03/24 02:28 Pulse Rate 126 H 10/03/24 04:31 Respiratory Rate 17 10/03/24 04:31 Blood Pressure 180/109 H 10/03/24 02:28 Pulse Oximetry 98 10/03/24 06:26 Oxygen Delivery Nasal Cannula 10/03/24 06:26 Oxygen Flow Rate 2 10/03/24 06:26 Medical Decision Making MDM Narrative Medical decision making narrative: Differential diagnosis includes pneumonia, pulmonary embolism, COVID, flu, RSV Laboratory studies were obtained on the patient which showed a normal CBC CMP showed just a glucose 251 magnesium was low 1.3 patient was given 2 g of magnesium sulfate. The patient was positive for influenza CT chest showed no evidence of pulmonary embolism but out development of multifocal pneumonia The patient was positive for influenza The patient was given Rocephin Zithromax and also was started on Tamiflu Vital Signs Vital Signs: Vital Signs Temperature 36.4 C 10/03/24 02:28 Pulse Rate 129 H 10/03/24 02:28 Respiratory Rate 16 10/03/24 02:28 Blood Pressure 180/109 H 10/03/24 02:28 Pulse Oximetry 93 10/03/24 02:28 Temperature 36.4 C 10/03/24 02:28 Pulse Rate 126 H 10/03/24 04:31 Respiratory Rate 17 10/03/24 04:31 Blood Pressure 180/109 H 10/03/24 02:28 Pulse Oximetry 98 10/03/24 06:26 Oxygen Delivery Nasal Cannula 10/03/24 06:26 Oxygen Flow Rate 2 10/03/24 06:26 Lab Data 10/03/24 02:40 10/03/24 02:40 Labs: Lab Results 10/03/24 10/03/24 10/03/24 Range/Units 02:40 04:42 05:53 WBC 8.7 (4.5-10.0) K/mm3 RBC 4.65 (4.2-5.4) M/mm3 Hgb 13.4 (12.0-15.0) g/dL Hct 41.8 (37.0-47.0) % MCV 89.9 (80-100) fl MCH 28.8 (26-34) pg MCHC 32.1 (32-36) g/dl RDW 15.8 H (11.5-14.5) % Plt Count 357 (150-375) k/mm3 MPV 9.8 (7.4-10.4) fl Immature Gran % (Auto) 0.6 H (0-0.5) % Neut % (Auto) 76.0 H (45.5-73.1) % Lymph % (Auto) 16.5 L (18.3-44.2) % [place] % (Auto) 6.1 (2.6-8.5) % Eos % (Auto) 0.5 (0-4.4) % Baso % (Auto) 0.3 (0.2-1.2) % Lymph # (Auto) 1.43 (0.9-3.2) K/mm3 [place] # (Auto) 0.5 (0.1-0.6) K/mm3 Eos # (Auto) 0.0 (0-0.3) K/mm3 Baso # (Auto) 0.0 (0.0-0.1) K/mm3 Abs Immat Gran (auto) 0.05 H (0.00-0.031) K/mm3 Absolute Neuts (auto) 6.6 (1.3-6.7) K/mm3 Absolute Nucleated RBC 0.000 (0.0-0.012) K/mm3 Nucleated RBC % 0.0 (0.0-0.2) % PT 12.5 (11.1-14.7) Seconds INR 0.9 APTT 26.9 (22.3-36.8) Seconds Sodium 133 L (137-145) mmol/L Potassium 4.1 (3.4-5.0) mmol/L Chloride 94 L (98-107) mmol/L Carbon Dioxide 28 (22-30) mmol/L Anion Gap 11 (4-12) mmol/L BUN 8 D (7-17) mg/dL Creatinine 0.50 L (0.7-1.0) mg/dL Estim Creat Clear Calc 163 ml/min Estimated GFR > 60 (59 - ) Glucose 251 H (65-110) mg/dL Lactic Acid 2.4 H (0.7-2.0) mmol/L Calcium 9.6 (8.4-10.2) mg/dL Magnesium 1.3 L (1.6-2.3) mg/dL Total Bilirubin 1.1 (0.2-1.3) mg/dL AST 34 (14-36) U/L ALT 74 H (6-35) U/L Alkaline Phosphatase 77 (38-126) U/L Troponin I 0.032 (0.000-0.034) ng/mL NT-Pro-B Natriuret Pep 66 (19.9-100) pg/mL Total Protein 7.0 (6.3-8.2) g/dL Albumin 4.1 (3.5-5.1) g/dL Procalcitonin 0.1 ng/mL Urine Color Yellow (Yellow) Urine Appearance Clear (Clear) Urine pH 7.0 (5.0-9.0) Ur Specific [place] 1.039 H (1.001-1.035) Urine Protein 1+ H (Negative) mg/dL Urine Glucose (UA) 2+ H (Negative) mg/dL Urine Ketones 3+ H (Negative) mg/dL Ur Blood (Man) Negative (Negative) Urine Nitrate Negative (Negative) Urine Bilirubin Negative (Negative) Urine Urobilinogen 0.2 (<2.0) mg/dL Leukocyte Esterase Rfl Negative (Negative) JAYDEN/UL Urine RBC 0-2 (0-2) /hpf Urine WBC 0-5 (0-3) /hpf Ur Squamous Epith Cells None seen (Few) /hpf Urine Bacteria None seen /hpf Urine Casts 0-2 Influenza A (RT-PCR) Positive A (Negative) Influenza B (RT-PCR) Negative (Negative) RSV (RT-PCR) Negative (Negative) SARS-CoV-2 RNA (RT-PCR) Negative (Negative) ABG Data ABG results: 10/03/24 04:34 Puncture Site Right radial ABG pH 7.496 H ABG pCO2 33.8 L ABG pO2 68.2 L ABG PO2/FiO2 Ratio 3.25 ABG HCO3 25.5 ABG O2 Saturation 95.1 ABG O2 Content 18.1 ABG Base Excess 2.7 A-a Gradient 41.1 Oxyhemoglobin 93.0 Total Hemoglobin 13.8 O2 Delivery Device Not Reportable O2 Liters/Min Not Reportable FiO2 21 Discharge Plan Discharge Clinical Impression: Acute hypoxic respiratory failure, Influenza Pneumonia Qualifiers: Pneumonia type: due to unspecified organism Laterality: unspecified laterality Lung location: unspecified part of lung Qualified Code(s): J18.9 - Pneumonia, unspecified organism Patient Disposition: Still a Patient Condition: Stable Patient Language: Tanzanian Prescriptions: No Action atorvastatin 20 mg tablet 20 mg PO HS Rx Instructions: Has been off since June due PCP order. montelukast 10 mg tablet 10 mg PO HS loratadine [Claritin] 10 mg Tablet 10 mg PO DAILY venlafaxine 150 mg capsule,extended release 24hr 150 mg PO QPM Lorenza Flood U-100 Insulin 100 unit/mL insulin pen 1 sliding scale dose SUBCUT AC Rx Instructions: For blood sugar of 150 or less administer 18 units for blood sugar per 25 points greater than 150 administer 1 unit per 25 over Mounjaro 5 mg/0.5 mL pen injector 10 mg SUBCUT WEEKLY Patient Comments: on Saturdays tramadol 50 mg Tablet 50 mg PO Q4H PRN (Reason: Severe pain) Qty: 15 0RF albuterol sulfate 2.5 mg /3 mL (0.083 %) solution for nebulization 2.5 mg inhalation DAILY PRN (Reason: Shortness Of Breath) cetirizine [All Day Allergy (cetirizine)] 10 mg Tablet 10 mg PO DAILY fluticasone propionate 50 mcg/actuation [place],Suspension 1 spray INTRANASAL DAILY PRN (Reason: allergy symptoms) ergocalciferol (vitamin D2) 50,000 unit PO .COMPLEX Patient Comments: Patient takes on Wednesdays and Sundays Rx Instructions: 50,000 units orally twice a week; prednisone 20 mg tablet 40 mg PO DAILY@0800 cyclobenzaprine 10 mg tablet 10 mg PO HS Patient Comments: patient takes in the evening lisinopril 20 mg tablet 20 mg PO DAILY methotrexate sodium 2.5 mg tablet 12.5 mg PO WEEKLY Rx Instructions: on gabapentin 300 mg capsule 300 mg PO TID diclofenac sodium 75 mg tablet,delayed release (DR/EC) 75 mg PO BID folic acid 1 mg tablet 1 mg PO DAILY hydroxychloroquine 200 mg tablet 400 mg PO HS insulin glargine [Lantus Solostar U-100 Insulin] 100 unit/mL (3 mL) insulin pen 45 unit SUBCUT BID Patient Comments: in the morning and evening pantoprazole 40 mg tablet,delayed release (DR/EC) 40 mg PO DAILY Diurex 162.5-50 mg tablet 1 tablet PO DAILY magnesium 200 mg tablet 400 mg PO DAILY potassium 99 mg tablet 99 mg PO HS famotidine [Acid Controller] 20 mg tablet 20 mg PO HS acetaminophen 500 mg Tablet 1,000 mg PO BID Follow-up/Referrals: Michael,Lynn Burrows [Other] Time of Disposition: 06:59
[2024-10-03 06:15] LABS: Add Urine Microscopic? YES; Appearance Urine Clear (Clear); Bacteria Urine None Seen /hpf; Bilirubin Urine Negative (Negative); Blood Urine Negative (Negative); Color Urine Yellow (Yellow); Glucose Urine UA 2+ mg/dL (Negative); Ketones Urine 3+ mg/dL (Negative); Leukocyte Esterase Ur Negative LEU/UL (Negative); Nitrate Urine Negative (Negative); Non Pathogenic Casts 0-2; Protein Urine 1+ mg/dL (Negative); RBC Urine 0-2 /hpf (0-2); Specific Grav Ur 1.039 (1.001-1.035); Squamous Epithelial Cell Urine None Seen /hpf (Few); Urobilinogen Urine 0.2 mg/dL (<2.0); WBC Urine 0-5 /hpf (0-3)
--- NOTE | 2024-10-03 07:26 | PC.NURSE ---
Called [facility] for assistance with cultures because of difficult draw.
[2024-10-03 07:48] LABS: Reflex Lactic Acid Yes or No Add Lactic
[2024-10-03] MEDS: OSELTAMIVIR PHOSPHATE 75 MG CAPSULE PO ×2 (08:37→20:42)
[2024-10-03] MEDS: AZITHROMYCIN 500 MG/NS 250 ML 500 MG/250 ML BAG 250 MG IVPB (10:03)
[2024-10-03 10:53] LABS: Lactic Acid 1.7 mmol/L (0.7-2.0)
[2024-10-03] MEDS: ONDANSETRON INJ 4 MG/2 ML VIAL IV PUSH ×2 (12:24→18:35)
--- NOTE | 2024-10-03 13:27 | PC.NURSE ---
Pt states nausea has improved after medication administration. Water provided.
--- NOTE | 2024-10-03 16:05 | ADMGEN ---
This patient, Camila Huitron, was admitted to IMU Room 210-01 on 10/03/24 at 1434. Patient/family oriented to hospital policies and general routines including ID bracelet, bed and alarms, visiting hours, pain management, procedures, bathroom and other care routines, personal items, smoking policy, room service/diet, and visiting hours. Information on how to activate the Rapid Response Team has been discussed. Patient/Family are encouraged to report perceived risks to care and to ask questions if they do not understand what they are told or what they should do.
--- NOTE | 2024-10-03 16:35 | P.HP_ITS ---
H&P: HPI History of Present Illness Date/Time: 10/03/24 16:35 Chief Complaint: Shortness of Breath/Dyspnea Narrative: 49-year-old female patient with a history of insulin-dependent type 2 diabetes, hypertension, obstructive sleep apnea, elevated cholesterol, vasculitis and autoimmune disorder who was recently admitted to the hospital about a month ago with pneumonia requiring intubation and 10 days ago for difficulty breathing and right side diaphragm paralysis(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 Fluoroscopy showed normal motion of the right diaphragm which makes paralysis unlikely. The elevated diaphragm is then related to basal atelectasis.Discharged with advise to use incentive spirometry.Today she presents to emergency department with chief complaint of shortness of breath high heart rate and blood pressure. Patient states she has been feeling short of breath since this morning reports that she noticed that her oxygen levels were lower than where it has been in her heart rates been up in the 130s and 140s. The patient reports he has also had some nausea vomiting . Pertinent ED labs: WBC 8.7, he hemoglobin 13.4, hematocrit 41.8, platelets 357, sodium 133, potassium 4.1, creatinine 0.5, GFR more than 60, glucose 251, lactic acid decreased from 2.4-1.7. Blood glass: PH 7.4, pCO2 33.8, PO2 68.2 UA no significant finding Influenza A positive. Negative for RSV and COVID CTA chest: No evidence of pulmonary embolus, aortic dissection, or aortic aneurysm.Interval development of multiple focal, predominantly peripheral areas of groundglass opacity and focal consolidation. Findings suggest inf ectious/inflammatory process, including possibility of Covid 19 pneumonia. Clinical correlation required.Diffuse hepatic steatosis. Patient has obesity hypoventilation syndrome, will be admitted in the setting of RSV infection. Patient denies any smoking, drinking or using illicit drugs. Of note patient was previously transferred to tertiary care hospital due to rheumatology and pulmonology coverage on 08/13/2024. during my evaluation patient has increased HR possibly due to albuterol treatment she received 2 times in ED. BP is 150's will obtain EKG and give Metoprolol 2.5mg IV x 1. Will change to Xopenex. CTA negative for PE. Review of Systems Review of Systems: A 10 system review of systems was completed on the patient and is negative except for what is stated in the HPI. Nursing and ancillary documentation was reviewed. [facility] Past Medical History Medical History Vasculitis Depression JEREMY on CPAP Hypertension Hypercholesterolemia Diabetes Surgical History Surgical History H/O arthroscopy H/O myomectomy Family History Family History Mother Diabetes mellitus Myocardial infarction Uterine cancer Father Cancer of blood vessel Sibling Diabetes mellitus Social History Social History Smoking status: Never smoker Alcohol intake: never Drinks per week: 1 Substance use: never Substance use type: does not use Do You Feel Safe in your Home?: Yes Lack of Transportation: No Lack of Food: Never True Current Housing: I Have Housing Concerned About Future Housing: No Difficulty Paying Gas/Electric Bills: No Difficulty Paying for Meds: No Currently Unemployed: No Education: High School Diploma/GED Difficulty w/ Childcare or Family Care: No Spiritual care concerns: No Meds Home Medications and Allergies Home Medications ?Medication ?Instructions ?Recorded ?Confirmed ?Type atorvastatin 20 mg tablet 20 mg PO HS 10/15/20 10/03/24 History loratadine 10 mg tablet (Claritin) 10 mg PO DAILY 10/15/20 10/03/24 History montelukast 10 mg tablet 10 mg PO HS 10/15/20 10/03/24 History insulin lispro-aabc 100 unit/mL 1 sliding scale dose subcut AC 05/25/23 10/03/24 History subcutaneous pen (Lyumjev KwikPen U-100 Insulin) tirzepatide 5 mg/0.5 mL 10 mg subcut WEEKLY 05/25/23 10/03/24 History subcutaneous pen injector (Jewellro) venlafaxine 150 mg 150 mg PO QPM 05/25/23 10/03/24 History capsule,extended release 24 hr tramadol 50 mg tablet 50 mg PO Q4H PRN Severe pain #15 05/29/23 10/03/24 Rx tabs albuterol sulfate 2.5 mg/3 mL 2.5 mg inhalation DAILY PRN 08/10/23 10/03/24 History (0.083 %) solution for nebulization Shortness Of Breath cetirizine 10 mg tablet (All Day 10 mg PO DAILY 08/10/23 10/03/24 History Allergy (cetirizine)) ergocalciferol (vitamin D2) 50,000 unit PO .COMPLEX 08/10/23 10/03/24 History fluticasone propionate 50 1 spray intranasal DAILY PRN 08/10/23 10/03/24 History mcg/actuation nasal allergy symptoms spray,suspension prednisone 20 mg tablet 40 mg PO DAILY@0800 08/10/23 10/03/24 History cyclobenzaprine 10 mg tablet 10 mg PO HS 07/31/24 10/03/24 History diclofenac sodium 75 mg 75 mg PO BID 07/31/24 10/03/24 History tablet,delayed release folic acid 1 mg tablet 1 mg PO DAILY 07/31/24 10/03/24 History gabapentin 300 mg capsule 300 mg PO TID 07/31/24 10/03/24 History hydroxychloroquine 200 mg tablet 400 mg PO HS 07/31/24 10/03/24 History insulin glargine 100 unit/mL (3 45 unit subcut BID 07/31/24 10/03/24 History mL) subcutaneous pen (Lantus Solostar U-100 Insulin) lisinopril 20 mg tablet 20 mg PO DAILY 07/31/24 10/03/24 History methotrexate sodium 2.5 mg tablet 12.5 mg PO WEEKLY 07/31/24 10/03/24 History pantoprazole 40 mg tablet,delayed 40 mg PO DAILY 07/31/24 10/03/24 History release acetaminophen 500 mg tablet 1,000 mg PO BID 09/23/24 10/03/24 History famotidine 20 mg tablet (Acid 20 mg PO HS 09/23/24 10/03/24 History Controller) magnesium 200 mg tablet 400 mg PO DAILY 09/23/24 10/03/24 History magnesium salicylate 162.5 1 tablet PO DAILY 09/23/24 10/03/24 History mg-caffeine 50 mg tablet (Diurex) potassium 99 mg tablet 99 mg PO HS 09/23/24 10/03/24 History albuterol sulfate 90 mcg/actuation 2 puff inhalation Q8H PRN 10/03/24 10/03/24 History aerosol inhaler shortness of breath or wheezing Allergies Allergy/AdvReac Type Severity Reaction Status Date / Time amoxicillin AdvReac Unknown Nausea and Verified 07/31/24 08:23 Vomiting glipizide AdvReac Unknown NAUSEA AND Verified 02/06/24 14:29 VOMITING hydrocodone AdvReac Unknown Nausea and Verified 02/06/24 14:29 Vomiting metformin AdvReac Unknown Nausea and Verified 02/06/24 14:29 Vomiting Vital Signs Vital Signs - 24 hr 10/03/24 02:28 10/03/24 02:31 10/03/24 04:31 Temperature 97.6 F Pulse Rate 129 H 126 H Respiratory Rate 16 17 Blood Pressure 180/109 H Pulse Oximetry 93 93 Oxygen Delivery Room Air Oxygen Flow Rate 10/03/24 04:45 10/03/24 06:26 10/03/24 07:23 Temperature Pulse Rate 129 H Respiratory Rate 21 H Blood Pressure Pulse Oximetry 98 98 98 Oxygen Delivery Nasal Cannula Nasal Cannula Oxygen Flow Rate 2 2 10/03/24 07:30 10/03/24 07:45 10/03/24 08:00 Temperature Pulse Rate 129 H 130 H 130 H Respiratory Rate 18 18 21 H Blood Pressure Pulse Oximetry 96 97 97 Oxygen Delivery Oxygen Flow Rate 10/03/24 08:15 10/03/24 08:30 10/03/24 08:40 Temperature Pulse Rate 127 H 130 H 131 H Respiratory Rate 18 15 15 Blood Pressure 161/107 H Pulse Oximetry 97 97 96 Oxygen Delivery Oxygen Flow Rate 10/03/24 08:49 10/03/24 08:49 10/03/24 08:58 Temperature Pulse Rate 136 H 136 H 137 H Respiratory Rate 20 20 26 H Blood Pressure Pulse Oximetry 95 Oxygen Delivery Nasal Cannula Oxygen Flow Rate 2 10/03/24 12:03 10/03/24 12:08 10/03/24 14:19 Temperature 98.4 F Pulse Rate 130 H 131 H Respiratory Rate 26 H 24 H Blood Pressure 148/97 H Pulse Oximetry 98 Oxygen Delivery Oxygen Flow Rate 10/03/24 14:29 Temperature Pulse Rate 135 H Respiratory Rate 20 Blood Pressure Pulse Oximetry Oxygen Delivery Oxygen Flow Rate Exam Narrative: Differential diagnosis includes pulmonary embolism, upper respiratory infection, influenza, COVID, RSV, Const: Other: GENERAL: awake, alert, oriented, obese, mild dyspnea noted HEAD: Normocephalic, atraumatic. NECK: Supple. No adenopathy, no masses. RESPIRATORY: Airway patent, respirations mildly labored. Clear to auscultation bilaterally, no rales, no rhonchi, no wheezing at time of examination. CARDIOVASCULAR: Tachycardia without murmurs, rubs, or gallops. Peripheral pulses 2+ and equal bilaterally, bilateral lower extremity edema that patient reports is baseline ABDOMINAL: Soft, nontender, nondistended, Normoactive BS. MUSCULOSKELETAL: Moves all extremities. Strength/ROM intact without gross deformities. Ambulatory with steady gait SKIN: Warm, dry, pallor. Chronic erythema lower extremities (vasculitis/PVD) NEURO: A&O X3. Speech clear. Cranial nerves II-XII grossly intact, No ataxic movements. PSYCHIATRIC: Appropriate mood and affect. Normal interaction. H&P: Results Labs Labs: Short CBC 10/03/24 Range/Units 02:40 WBC 8.7 (4.5-10.0) K/mm3 Hgb 13.4 (12.0-15.0) g/dL Hct 41.8 (37.0-47.0) % Plt Count 357 (150-375) k/mm3 BMP 10/03/24 02:40 Sodium 133 L Potassium 4.1 Chloride 94 L Carbon Dioxide 28 BUN 8 D Creatinine 0.50 L Glucose 251 H Calcium 9.6 Cardiac Enzymes 10/03/24 Range/Units 04:42 Troponin I 0.032 (0.000-0.034) ng/mL Liver Function 10/03/24 Range/Units 02:40 Total Bilirubin 1.1 (0.2-1.3) mg/dL AST 34 (14-36) U/L ALT 74 H (6-35) U/L Alkaline Phosphatase 77 (38-126) U/L Albumin 4.1 (3.5-5.1) g/dL Urine 10/03/24 Range/Units 05:53 Urine Color Yellow (Yellow) Urine Appearance Clear (Clear) Urine pH 7.0 (5.0-9.0) Ur Specific [place] 1.039 H (1.001-1.035) Urine Protein 1+ H (Negative) mg/dL Urine Glucose (UA) 2+ H (Negative) mg/dL Assessment and Plan Assessment and plan (1) Influenza: Code(s): J11.1 - Influenza due to unidentified influenza virus with other respiratory manifestations Status: Acute (2) Pneumonia: Qualifiers: Laterality: unspecified laterality Lung location: unspecified part of lung Pneumonia type: due to unspecified organism Qualified Code(s): J18.9 - Pneumonia, unspecified organism Code(s): J18.9 - Pneumonia, unspecified organism Status: Acute (3) Acute hypoxic respiratory failure: Code(s): J96.01 - Acute respiratory failure with hypoxia Status: Acute (4) Lactic acidosis: Code(s): E87.20 - Acidosis, unspecified Status: Acute (5) Diabetes mellitus, insulin dependent (IDDM), uncontrolled: Status: Acute (6) Morbidly obese: Code(s): E66.01 - Morbid (severe) obesity due to excess calories Status: Chronic (7) Hyponatremia: Code(s): E87.1 - Hypo-osmolality and hyponatremia Status: Acute Plan PNA Influenza A positive On Tamiflu Vital signs improved and stable Continue Ceftraixone and Azithromycin monitor cultures Order nasal MRSA Recent history of intubation Comorbid condition: Obesity hypoventilation syndrome Consult pulmonology Incentive spirometry encourage oral intake Tachycardia Possible due to Albuterol induced Changed to Xopenex CTA negative for PE EKG obtained No hx of A.Fib Metoprolol 2.5 mg IV x 1. Obstructive sleep apnea/obesity hypoventilation syndrome Autopap or home unit ordered Autoimmune condition Continue Rituxan and methotrexate Continue home dose prednisone 20 mg p.o. q.d. Hypertension Continue home med Diabetes mellitus Continue insulin glargine 45 units b.i.d. Mild sliding scale Hypoglycemic protocol DVT prophylaxis Lovenox 40 mg subQ Quality VTE Prophylaxis VTE prophylaxis: pharmacologic ordered Hospitalist MIPS Advance Care Plan I have confirmed that the patient's Advanced Care Plan is present, code status is documented, or surrogate decision maker is listed in patient medical record.: Yes Medication Reconciliation I have utilized all available resources to obtain, update and review the patients current medications (includes all prescriptions, OTC, herbals, cannabis, and nutritional supplements).: Yes
[2024-10-03 16:39] LABS: Glucose Point of Care 280 mg/dl (65-105)
--- NOTE | 2024-10-03 18:00 | ECG_ITS ---
Test Date: 2024-10-03 18:17:33 Measurements Intervals [place] Rate: 128 P: 130 NM: 129 QRS: 177 QRSD: 82 T: 62 QT: 304 QTc: 444 Interpretive Statements SINUS TACHYCARDIA ARM LEADS REVERSED [INVERTED P AND QRS IN I] ABNORMAL RHYTHM ECG Compared to ECG 10/03/2024 02:44:48 LEAD REVERSAL NOW PRESENT Electronically Signed On 10-04-2024 16:12:49 VALIDATION ANALYST by Gayle Zamarripa M.D.
[2024-10-03] MEDS: VENLAFAXINE HCL XR 75 MG CAP.ER.24H 150 MG PO (18:31)
[2024-10-03] MEDS: METOPROLOL TARTRATE INJ 5 MG/5 ML VIAL 2.5 MG IV PUSH (18:31)
[2024-10-03 20:23] LABS: Glucose Point of Care 282 mg/dl (65-105)
[2024-10-03] MEDS: ATORVASTATIN 20 MG TABLET PO (20:41)
[2024-10-03] MEDS: FAMOTIDINE 20 MG TABLET PO (20:41)
[2024-10-03] MEDS: ACETAMINOPHEN 500 MG TABLET 1000 MG PO (20:42)
[2024-10-03] MEDS: CYCLOBENZAPRINE HCL 10 MG TABLET PO (20:42)
[2024-10-03] MEDS: MONTELUKAST SODIUM 10 MG TABLET PO (20:42)
[2024-10-03] MEDS: LEVALBUTEROL NEB 1.25 MG/3 ML INHALATION (20:46)
[2024-10-04] VITALS (28 sets, daily range): BP systolic 147–185; BP diastolic 86–112; PULSE 102–126; RESP 20–22; TEMP 36.7–36.8; O2SAT 94–98
[2024-10-04] MEDS: LEVALBUTEROL NEB 1.25 MG/3 ML INHALATION ×4 (02:45→20:56)
[2024-10-04 07:55] LABS: Glucose Point of Care 259 mg/dl (65-105)
--- NOTE | 2024-10-04 08:37 | P.CONPL_ITS ---
Assessment and Plan Assessment and plan (1) JEREMY on CPAP: Code(s): G47.33 - Obstructive sleep apnea (adult) (pediatric) Status: Chronic (2) Shortness of breath: Code(s): R06.02 - Shortness of breath Status: Acute Assessment and Plan: A 49-year-old morbidly obese female presents with sleep-disordered breathing managed by auto CPAP, autoimmune disease on chronic immunosuppressive therapy, recent bilateral pneumonia requiring mechanical ventilation and a 7-day ICU stay last month, and insulin-dependent diabetes mellitus. She reports a few days of mild cough and shortness of breath. A CTA revealed new scattered bilateral infiltrates, with no evidence of pulmonary embolism or pleural effusions. She tested positive for influenza A and is currently being treated with Tamiflu and antibiotics for a possible bacterial coinfection. Plan: Continue the current regimen of Tamiflu and antibiotics to address the possible bacterial coinfection. Administer short-acting bronchodilators as needed. Increase Lovenox to twice daily for enhanced DVT prophylaxis. The patient will continue using her home CPAP for known sleep apnea. I will continue to follow up with the patient in collaboration with you. (3) Elevated hemidiaphragm: Code(s): J98.6 - Disorders of diaphragm Status: Acute (4) Diabetes mellitus, insulin dependent (IDDM), uncontrolled: Status: Acute (5) Morbidly obese: Code(s): E66.01 - Morbid (severe) obesity due to excess calories Status: Chronic (6) Vasculitis: Code(s): I77.6 - Arteritis, unspecified Status: Acute History of Present Illness History of Present Illness Consult date: 10/04/24 Chief complaint: multifocal pneumonia, influenza, hypoxia Narrative: This patient is well known to our Pulmonary Services. She presents with a history of sleep-disordered breathing, managed with CPAP at home, diabetes mellitus, morbid obesity, and an autoimmune disease requiring chronic steroid therapy. Last week, she was hospitalized due to shortness of breath and diagnosed with an elevated right diaphragm. Chest fluoroscopy revealed normal diaphragm motion, making paralysis unlikely. Following her discharge, she was advised to continue using her CPAP. Recently, she developed a cough with clear sputum production and palpitations. Evaluations indicated an elevated heart rate and blood pressure, and she tested positive for influenza A. A chest CT scan ruled out pulmonary embolism but showed scattered bilateral infiltrates without pleural effusions. She is currently undergoing treatment for influenza A pneumonia and receiving antibiotics for a potential bacterial coinfection. Her respiratory status has improved since yesterday. She used her home CPAP machine last night and continues to experience mild coughing without fever, chills, or hemoptysis. Wheezing was noted but resolved following nebulized treatment. Review of Systems 2 Review of Systems: All systems reviewed & are unremarkable except as noted in HPI and below (HPI and below) PMFSH Past Medical History Medical History Vasculitis Depression JEREMY on CPAP Hypertension Hypercholesterolemia Diabetes Surgical History Surgical History H/O arthroscopy H/O myomectomy Family History Family History Mother Diabetes mellitus Myocardial infarction Uterine cancer Father Cancer of blood vessel Sibling Diabetes mellitus Social History Social History Smoking status: Never smoker Alcohol intake: never Drinks per week: 1 Substance use: never Substance use type: does not use Do You Feel Safe in your Home?: Yes Lack of Transportation: No Lack of Food: Never True Current Housing: I Have Housing Concerned About Future Housing: No Difficulty Paying Gas/Electric Bills: No Difficulty Paying for Meds: No Currently Unemployed: No Education: High School Diploma/GED Difficulty w/ Childcare or Family Care: No Spiritual care concerns: No Meds Home Medications and Allergies Home Medications ?Medication ?Instructions ?Recorded ?Confirmed ?Type atorvastatin 20 mg tablet 20 mg PO HS 10/15/20 10/03/24 History loratadine 10 mg tablet (Claritin) 10 mg PO DAILY 10/15/20 10/03/24 History montelukast 10 mg tablet 10 mg PO HS 10/15/20 10/03/24 History insulin lispro-aabc 100 unit/mL 1 sliding scale dose subcut AC 05/25/23 10/03/24 History subcutaneous pen (Lyumjev KwikPen U-100 Insulin) tirzepatide 5 mg/0.5 mL 10 mg subcut WEEKLY 05/25/23 10/03/24 History subcutaneous pen injector (Stephan) venlafaxine 150 mg 150 mg PO QPM 05/25/23 10/03/24 History capsule,extended release 24 hr tramadol 50 mg tablet 50 mg PO Q4H PRN Severe pain #15 05/29/23 10/03/24 Rx tabs albuterol sulfate 2.5 mg/3 mL 2.5 mg inhalation DAILY PRN 08/10/23 10/03/24 History (0.083 %) solution for nebulization Shortness Of Breath cetirizine 10 mg tablet (All Day 10 mg PO DAILY 08/10/23 10/03/24 History Allergy (cetirizine)) ergocalciferol (vitamin D2) 50,000 unit PO .COMPLEX 08/10/23 10/03/24 History fluticasone propionate 50 1 spray intranasal DAILY PRN 08/10/23 10/03/24 History mcg/actuation nasal allergy symptoms spray,suspension prednisone 20 mg tablet 40 mg PO DAILY@0800 08/10/23 10/03/24 History cyclobenzaprine 10 mg tablet 10 mg PO HS 07/31/24 10/03/24 History diclofenac sodium 75 mg 75 mg PO BID 07/31/24 10/03/24 History tablet,delayed release folic acid 1 mg tablet 1 mg PO DAILY 07/31/24 10/03/24 History gabapentin 300 mg capsule 300 mg PO TID 07/31/24 10/03/24 History hydroxychloroquine 200 mg tablet 400 mg PO HS 07/31/24 10/03/24 History insulin glargine 100 unit/mL (3 45 unit subcut BID 07/31/24 10/03/24 History mL) subcutaneous pen (Lantus Solostar U-100 Insulin) lisinopril 20 mg tablet 20 mg PO DAILY 07/31/24 10/03/24 History methotrexate sodium 2.5 mg tablet 12.5 mg PO WEEKLY 07/31/24 10/03/24 History pantoprazole 40 mg tablet,delayed 40 mg PO DAILY 07/31/24 10/03/24 History release acetaminophen 500 mg tablet 1,000 mg PO BID 09/23/24 10/03/24 History famotidine 20 mg tablet (Acid 20 mg PO HS 09/23/24 10/03/24 History Controller) magnesium 200 mg tablet 400 mg PO DAILY 09/23/24 10/03/24 History magnesium salicylate 162.5 1 tablet PO DAILY 09/23/24 10/03/24 History mg-caffeine 50 mg tablet (Diurex) potassium 99 mg tablet 99 mg PO HS 09/23/24 10/03/24 History albuterol sulfate 90 mcg/actuation 2 puff inhalation Q8H PRN 10/03/24 10/03/24 History aerosol inhaler shortness of breath or wheezing Allergies Allergy/AdvReac Type Severity Reaction Status Date / Time amoxicillin AdvReac Unknown Nausea and Verified 07/31/24 08:23 Vomiting glipizide AdvReac Unknown NAUSEA AND Verified 02/06/24 14:29 VOMITING hydrocodone AdvReac Unknown Nausea and Verified 02/06/24 14:29 Vomiting metformin AdvReac Unknown Nausea and Verified 02/06/24 14:29 Vomiting Vital Signs Vital Signs - 24 hr 10/03/24 08:40 10/03/24 08:49 10/03/24 08:49 Temperature Pulse Rate 131 H 136 H 136 H Respiratory Rate 15 20 20 Blood Pressure 161/107 H Pulse Oximetry 96 95 Oxygen Delivery Nasal Cannula Oxygen Flow Rate 2 Fraction of Inspired Oxygen 10/03/24 08:58 10/03/24 12:03 10/03/24 12:08 Temperature 36.9 C Pulse Rate 137 H 130 H Respiratory Rate 26 H 26 H Blood Pressure 148/97 H Pulse Oximetry 98 Oxygen Delivery Oxygen Flow Rate Fraction of Inspired Oxygen 10/03/24 14:19 10/03/24 14:29 10/03/24 14:34 Temperature 36.9 C Pulse Rate 131 H 135 H 132 H Respiratory Rate 24 H 20 20 Blood Pressure 154/91 H Pulse Oximetry 96 Oxygen Delivery Oxygen Flow Rate Fraction of Inspired Oxygen 10/03/24 14:34 10/03/24 16:00 10/03/24 16:00 Temperature 37.0 C Pulse Rate 136 H 132 H 133 H Respiratory Rate 24 H Blood Pressure 159/99 H Pulse Oximetry 94 Oxygen Delivery Oxygen Flow Rate Fraction of Inspired Oxygen 10/03/24 18:00 10/03/24 18:31 10/03/24 20:00 Temperature 37.1 C Pulse Rate 128 H 130 H 124 H Respiratory Rate 23 H Blood Pressure 161/99 H Pulse Oximetry 98 Oxygen Delivery Oxygen Flow Rate Fraction of Inspired Oxygen 10/03/24 20:00 10/03/24 20:15 10/03/24 20:46 Temperature Pulse Rate 121 H 123 H 126 H Respiratory Rate 22 H 22 H Blood Pressure Pulse Oximetry 96 Oxygen Delivery Nasal Cannula Oxygen Flow Rate 2 Fraction of Inspired Oxygen 10/03/24 20:51 10/03/24 20:57 10/03/24 22:00 Temperature Pulse Rate 126 H 123 H 126 H Respiratory Rate 22 H Blood Pressure Pulse Oximetry 96 Oxygen Delivery Nasal Cannula Oxygen Flow Rate 2 Fraction of Inspired Oxygen 28 10/03/24 23:10 10/03/24 23:31 10/03/24 23:50 Temperature 37.0 C Pulse Rate 126 H 122 H 122 H Respiratory Rate 22 H 22 H Blood Pressure 157/96 H Pulse Oximetry 96 94 94 Oxygen Delivery CPAP Nasal Cannula Oxygen Flow Rate 1 Fraction of Inspired Oxygen 10/04/24 00:00 10/04/24 02:00 10/04/24 02:45 Temperature Pulse Rate 116 H 111 H 120 H Respiratory Rate 20 Blood Pressure Pulse Oximetry Oxygen Delivery Oxygen Flow Rate Fraction of Inspired Oxygen 10/04/24 02:45 10/04/24 02:55 10/04/24 04:00 Temperature Pulse Rate 116 H 112 H 126 H Respiratory Rate 20 Blood Pressure Pulse Oximetry 95 Oxygen Delivery CPAP Oxygen Flow Rate Fraction of Inspired Oxygen 10/04/24 04:13 10/04/24 04:15 10/04/24 07:43 Temperature 36.7 C Pulse Rate 118 H 118 H Respiratory Rate 22 H 22 H Blood Pressure 158/108 H Pulse Oximetry 98 98 96 Oxygen Delivery CPAP Nasal Cannula Oxygen Flow Rate 1 Fraction of Inspired Oxygen 28 10/04/24 07:43 10/04/24 07:53 10/04/24 08:07 Temperature 36.7 C Pulse Rate 118 H 118 H 116 H Respiratory Rate 20 20 22 H Blood Pressure 166/112 H Pulse Oximetry 96 Oxygen Delivery Oxygen Flow Rate Fraction of Inspired Oxygen Exam 2 Narrative: GENERAL APPEARANCE: Well developed, well nourished, alert and cooperative, morbidly obese and appears to be in no acute distress while breathing ambient air SKIN: Inspection of the skin reveals no rashes, ulcerations or petechiae. HEENT: Sclerae anicteric and conjunctivae pink and moist. Extraocular movements were intact and pupils were equal, round. The oral mucosa, hard and soft palate, tongue and posterior pharynx were normal. NECK: Supple. There was no thyroid enlargement, and no tenderness, or masses were felt. CHEST: Normal AP diameter and normal contour without any kyphoscoliosis. LUNGS: Auscultation of the lungs revealed normal breath sounds without any other adventitious sounds or rubs. CARDIAC: There was a regular rate and rhythm without any murmurs, gallops, rubs. ABDOMEN: Soft and nontender with normal bowel sounds. There was no organomegaly. No paradoxical abdominal movements in supine position. LYMPH NODES: No lymphadenopathy was appreciated in the neck. EXTREMITIES: No cyanosis, clubbing or edema. NEUROLOGIC: Alert and oriented x 3. Normal affect. Results Laboratory Findings 10/03/24 02:40 10/03/24 02:40 ABG, PT/INR, D-dimer: ABG ABG pH 7.496 (7.350-7.450) H 10/03/24 04:34 ABG pCO2 33.8 mmHg (35.0-45.0) L 10/03/24 04:34 ABG pO2 68.2 mmHg (80.0-100.0) L 10/03/24 04:34 ABG O2 Saturation 95.1 % (95.0-100.0) 10/03/24 04:34 PT/INR, D-dimer PT 12.5 Seconds (11.1-14.7) 10/03/24 04:42 INR 0.9 10/03/24 04:42 Abnormal lab findings: Abnormal Labs 10/03/24 10/03/24 10/03/24 02:40 04:34 04:42 RDW 15.8 H Immature Gran % (Auto) 0.6 H Neut % (Auto) 76.0 H Lymph % (Auto) 16.5 L Abs Immat Gran (auto) 0.05 H ABG pH 7.496 H ABG pCO2 33.8 L ABG pO2 68.2 L Sodium 133 L Chloride 94 L Creatinine 0.50 L Glucose 251 H POC Capillary Glucose Lactic Acid 2.4 H Magnesium 1.3 L ALT 74 H Ur Specific [place] Urine Protein Urine Glucose (UA) Urine Ketones Influenza A (RT-PCR) Positive A 10/03/24 10/03/24 10/03/24 05:53 16:34 20:04 RDW Immature Gran % (Auto) Neut % (Auto) Lymph % (Auto) Abs Immat Gran (auto) ABG pH ABG pCO2 ABG pO2 Sodium Chloride Creatinine Glucose POC Capillary Glucose 280 H 282 H Lactic Acid Magnesium ALT Ur Specific [place] 1.039 H Urine Protein 1+ H Urine Glucose (UA) 2+ H Urine Ketones 3+ H Influenza A (RT-PCR) 10/04/24 07:40 RDW Immature Gran % (Auto) Neut % (Auto) Lymph % (Auto) Abs Immat Gran (auto) ABG pH ABG pCO2 ABG pO2 Sodium Chloride Creatinine Glucose POC Capillary Glucose 259 H Lactic Acid Magnesium ALT Ur Specific [place] Urine Protein Urine Glucose (UA) Urine Ketones Influenza A (RT-PCR)
[2024-10-04] MEDS: PANTOPRAZOLE 40 MG TABLET PO (08:49)
[2024-10-04] MEDS: lisinopriL 20 MG TABLET PO (08:49)
[2024-10-04] MEDS: MAGNESIUM OXIDE 400 MG TABLET PO (08:50)
[2024-10-04] MEDS: GABAPENTIN 300 MG CAPSULE PO ×3 (08:50→17:07)
[2024-10-04] MEDS: predniSONE 20 MG TABLET 40 MG PO (08:50)
[2024-10-04] MEDS: DICLOFENAC SOD 75 MG TABLET.EC PO ×2 (08:50→17:07)
[2024-10-04] MEDS: LORATADINE 10 MG TABLET PO (08:50)
[2024-10-04] MEDS: OSELTAMIVIR PHOSPHATE 75 MG CAPSULE PO ×2 (08:50→21:46)
[2024-10-04] MEDS: FOLIC ACID 1 MG TABLET PO (08:50)
[2024-10-04] MEDS: ACETAMINOPHEN 500 MG TABLET 1000 MG PO ×2 (08:50→21:46)
[2024-10-04] MEDS: ENOXAPARIN 40 MG/0.4 ML SYRINGE SUB-Q (08:51)
[2024-10-04] MEDS: AZITHROMYCIN 500 MG/NS 250 ML 500 MG/250 ML BAG 250 MG IVPB (08:51)
[2024-10-04] MEDS: INSULIN GLARGINE (*BKC) 100 UNITS/ML 45 UNITS SUB-Q ×2 (08:52→17:47)
[2024-10-04] MEDS: INSULIN ASPART (*BKC) 100 UNITS/ML SUB-Q ×3 (08:52→17:47)
[2024-10-04 09:47] LABS: Lactic Acid Reflex 1.9 mmol/L (0.7-2.0)
--- NOTE | 2024-10-04 10:45 | ECG_ITS ---
Test Date: 2024-10-04 11:06:26 Measurements Intervals [place] Rate: 114 P: 48 MI: 126 QRS: 5 QRSD: 85 T: 137 QT: 340 QTc: 470 Interpretive Statements SINUS TACHYCARDIA ST DEVIATION AND MODERATE T-WAVE ABNORMALITY, CONSIDER LATERAL ISCHEMIA [-0.1+ mV T-WAVE IN I/aVL/V5/V6] Compared to ECG 10/03/2024 18:17:33 T-wave abnormality now present Possible ischemia now present Electronically Signed On 10-05-2024 10:58:05 MAINTENANCE TEAM LEADER by Ferny Vasquez M.D.
--- NOTE | 2024-10-04 10:46 | PC.NURSE ---
Notified Dr Estrada of patient sustained HR 118. Received order for EKG to confirm ST rhythm. Order read back and verified.
[2024-10-04] MEDS: SODIUM CHLORIDE 0.9% IV 250 ML 999 ML IV CONT (11:28)
[2024-10-04 11:49] LABS: Glucose Point of Care 335 mg/dl (65-105)
--- NOTE | 2024-10-04 14:54 | PM.IMPN ---
Progress Note: A&P Assessment and Plan (1) Influenza: Code(s): J11.1 - Influenza due to unidentified influenza virus with other respiratory manifestations Status: Acute (2) Pneumonia: Qualifiers: Laterality: unspecified laterality Lung location: unspecified part of lung Pneumonia type: due to unspecified organism Qualified Code(s): J18.9 - Pneumonia, unspecified organism Code(s): J18.9 - Pneumonia, unspecified organism Status: Acute (3) Acute hypoxic respiratory failure: Code(s): J96.01 - Acute respiratory failure with hypoxia Status: Acute (4) Lactic acidosis: Code(s): E87.20 - Acidosis, unspecified Status: Acute (5) Diabetes mellitus, insulin dependent (IDDM), uncontrolled: Status: Acute (6) Morbidly obese: Code(s): E66.01 - Morbid (severe) obesity due to excess calories Status: Chronic (7) Hyponatremia: Code(s): E87.1 - Hypo-osmolality and hyponatremia Status: Acute Plan PNA Influenza A positive On Tamiflu Vital signs improved and stable Continue Ceftriaxone and Azithromycin monitor cultures Order nasal MRSA Recent history of intubation Comorbid condition: Obesity hypoventilation syndrome Consult pulmonology Incentive spirometry encourage oral intake Acute hypoxemic resp failure on supplemental oxygen by nasal cannula continue titrating Tachycardia Possible due to Albuterol induced Changed to Xopenex CTA negative for PE EKG showed ST No hx of A.Fib Metoprolol 2.5 mg IV x 1. On IVF and monitor Obstructive sleep apnea/obesity hypoventilation syndrome Autopap or home unit ordered Autoimmune condition Continue Rituxan and methotrexate Continue home dose prednisone 20 mg p.o. q.d. Hypertension Continue home med Diabetes mellitus Continue insulin glargine 45 units b.i.d. Mild sliding scale Hypoglycemic protocol DVT prophylaxis Lovenox 40 mg subQ Subjective Date/time seen: 10/04/24 14:54 Interval history: Comfortable at bedside Review of Systems Review of Systems: A 10 system review of systems was completed on the patient and is negative except for what is stated in the HPI. Nursing and ancillary documentation was reviewed. Exam Narrative: Differential diagnosis includes pulmonary embolism, upper respiratory infection, influenza, COVID, RSV, Const: Other: GENERAL: awake, alert, oriented, obese, mild dyspnea noted HEAD: Normocephalic, atraumatic. NECK: Supple. No adenopathy, no masses. RESPIRATORY: Airway patent, respirations mildly labored. Clear to auscultation bilaterally, no rales, no rhonchi, no wheezing at time of examination. CARDIOVASCULAR: Tachycardia without murmurs, rubs, or gallops. Peripheral pulses 2+ and equal bilaterally, bilateral lower extremity edema that patient reports is baseline ABDOMINAL: Soft, nontender, nondistended, Normoactive BS. MUSCULOSKELETAL: Moves all extremities. Strength/ROM intact without gross deformities. Ambulatory with steady gait SKIN: Warm, dry, pallor. Chronic erythema lower extremities (vasculitis/PVD) NEURO: A&O X3. Speech clear. Cranial nerves II-XII grossly intact, No ataxic movements. PSYCHIATRIC: Appropriate mood and affect. Normal interaction. Objective Data Vital Signs Vital Signs: Vital Signs - 24 hr 10/03/24 16:00 10/03/24 16:00 10/03/24 18:00 Temperature 98.6 F Pulse Rate 132 H 133 H 128 H Respiratory Rate 24 H Blood Pressure 159/99 H Pulse Oximetry 94 Oxygen Delivery Oxygen Flow Rate Fraction of Inspired Oxygen 10/03/24 18:31 10/03/24 20:00 10/03/24 20:00 Temperature 98.7 F Pulse Rate 130 H 124 H 121 H Respiratory Rate 23 H Blood Pressure 161/99 H Pulse Oximetry 98 Oxygen Delivery Oxygen Flow Rate Fraction of Inspired Oxygen 10/03/24 20:15 10/03/24 20:46 10/03/24 20:51 Temperature Pulse Rate 123 H 126 H 126 H Respiratory Rate 22 H 22 H Blood Pressure Pulse Oximetry 96 96 Oxygen Delivery Nasal Cannula Nasal Cannula Oxygen Flow Rate 2 2 Fraction of Inspired Oxygen 28 10/03/24 20:57 10/03/24 22:00 10/03/24 23:10 Temperature Pulse Rate 123 H 126 H 126 H Respiratory Rate 22 H Blood Pressure Pulse Oximetry 96 Oxygen Delivery CPAP Oxygen Flow Rate Fraction of Inspired Oxygen 10/03/24 23:31 10/03/24 23:50 10/04/24 00:00 Temperature 98.6 F Pulse Rate 122 H 122 H 116 H Respiratory Rate 22 H 22 H Blood Pressure 157/96 H Pulse Oximetry 94 94 Oxygen Delivery Nasal Cannula Oxygen Flow Rate 1 Fraction of Inspired Oxygen 10/04/24 02:00 10/04/24 02:45 10/04/24 02:45 Temperature Pulse Rate 111 H 120 H 116 H Respiratory Rate 20 Blood Pressure Pulse Oximetry 95 Oxygen Delivery CPAP Oxygen Flow Rate Fraction of Inspired Oxygen 10/04/24 02:55 10/04/24 04:00 10/04/24 04:13 Temperature 98.1 F Pulse Rate 112 H 126 H 118 H Respiratory Rate 20 22 H Blood Pressure 158/108 H Pulse Oximetry 98 Oxygen Delivery Oxygen Flow Rate Fraction of Inspired Oxygen 10/04/24 04:15 10/04/24 07:43 10/04/24 07:43 Temperature Pulse Rate 118 H 118 H Respiratory Rate 22 H 20 Blood Pressure Pulse Oximetry 98 96 Oxygen Delivery CPAP Nasal Cannula Oxygen Flow Rate 1 Fraction of Inspired Oxygen 28 10/04/24 07:53 10/04/24 08:00 10/04/24 08:00 Temperature Pulse Rate 118 H 120 H Respiratory Rate 20 Blood Pressure Pulse Oximetry 97 Oxygen Delivery Nasal Cannula Oxygen Flow Rate 1 Fraction of Inspired Oxygen 10/04/24 08:07 10/04/24 10:00 10/04/24 11:59 Temperature 98.1 F 98.0 F Pulse Rate 116 H 118 H 113 H Respiratory Rate 22 H 22 H Blood Pressure 166/112 H 147/86 H Pulse Oximetry 96 95 Oxygen Delivery Oxygen Flow Rate Fraction of Inspired Oxygen 10/04/24 12:00 10/04/24 12:00 10/04/24 13:31 Temperature Pulse Rate 121 H 114 H Respiratory Rate 20 Blood Pressure Pulse Oximetry 96 Oxygen Delivery Nasal Cannula Oxygen Flow Rate 1 Fraction of Inspired Oxygen 10/04/24 13:49 Temperature Pulse Rate 117 H Respiratory Rate 20 Blood Pressure Pulse Oximetry Oxygen Delivery Oxygen Flow Rate Fraction of Inspired Oxygen Intake/Output Intake/Output: Intake & Output 10/01/24 10/02/24 10/03/24 10/04/24 23:59 23:59 23:59 23:59 Intake Total 1870 1080 Output Total 800 600 Balance 1070 480 Meds/Results Medications: Active Medications Generic Name Dose Route Start Last Admin Trade Name Freq PRN Reason Stop Dose Admin Acetaminophen 650 mg 10/03/24 08:20 Acetaminophen 325 Mg Tablet PO Q4H PRN Mild Pain (1-3) or Fever Acetaminophen 1,000 mg 10/03/24 21:00 10/04/24 08:50 Acetaminophen 500 Mg Tablet PO 1,000 mg Q12HR ZEE Administration Hydrocodone Bitart/Acetaminophen 1 tab 10/03/24 08:20 Hydrocodone/Acetaminophen (*Crx) 5-325 Mg Tablet PO Q4H PRN Pain Rated 4-6 Atorvastatin Calcium 20 mg 10/03/24 21:00 10/03/24 20:41 Atorvastatin 20 Mg Tablet PO 20 mg HS ZEE Administration Cyclobenzaprine HCl 10 mg 10/03/24 21:00 10/03/24 20:42 Cyclobenzaprine Hcl 10 Mg Tablet PO 10 mg HS ZEE Administration Dextrose 12.5 gm 10/03/24 17:04 Dextrose 50% 25 Gm/50 Ml Syringe IV PUSH PRN PRN Hypoglycemia Protocol Diclofenac Sodium 75 mg 10/04/24 09:00 10/04/24 08:50 Diclofenac Sod 75 Mg Tablet.Ec PO 75 mg BID ZEE Administration Enoxaparin Sodium 40 mg 10/04/24 09:00 10/04/24 08:51 Enoxaparin 40 Mg/0.4 Ml Syringe SUB-Q 40 mg DAILY ZEE Administration Famotidine 20 mg 10/03/24 21:00 10/03/24 20:41 Famotidine 20 Mg Tablet PO 20 mg HS ZEE Administration Fluticasone Propionate 1 spray 10/03/24 17:02 Fluticasone Propionate 0.05% Na Spr 16 Gm Btl (*Bkc) NASAL DAILY PRN allergy symptoms Folic Acid 1 mg 10/04/24 09:00 10/04/24 08:50 Folic Acid 1 Mg Tablet PO 1 mg DAILY ZEE Administration Gabapentin 300 mg 10/04/24 09:00 10/04/24 13:14 Gabapentin 300 Mg Capsule PO 300 mg TID ZEE Administration Glucagon 1 mg 10/03/24 17:04 Glucagon For Inj 1 Mg Vial IM PRN PRN Hypoglycemia Protocol Glucose 15 gm 10/03/24 17:04 Glucose Oral Gel 15 Gm Of Glucse In 37.5 Gm Tube PO PRN PRN Hypoglycemia Protocol Ceftriaxone Sodium 1 gm in 50 mls @ 100 mls/hr 10/04/24 08:00 10/04/24 10:26 Rocephin 1 Gm/Ns 50 Ml IVPB Infused Q24H ZEE Infusion Azithromycin 500 mg in 250 mls @ 250 mls/hr 10/04/24 09:00 10/04/24 08:51 Zithromax IVPB 250 mls/hr Q24H ZEE Administration Dextrose 1,000 mls @ 100 mls/hr 10/03/24 17:04 Dextrose 5% 1,000 Ml IVPB PRN PRN Hypoglycemia Protocol Insulin Aspart 2 - 5 units 10/04/24 08:00 10/04/24 11:48 Insulin Aspart (*Bkc) 100 Units/Ml SUB-Q 4 units TIDWM ZEE Administration Protocol Insulin Glargine 45 units 10/04/24 09:00 10/04/24 08:52 Insulin Glargine (*Bkc) 100 Units/Ml SUB-Q 45 units BID ZEE Administration Levalbuterol HCl 1.25 mg 10/03/24 20:00 10/04/24 13:31 Levalbuterol Neb 1.25 Mg/3 Ml INHALATION 1.25 mg Q6HRT ZEE Administration Lisinopril 20 mg 10/04/24 09:00 10/04/24 08:49 Lisinopril 20 Mg Tablet PO 20 mg DAILY ZEE Administration Loratadine 10 mg 10/04/24 09:00 10/04/24 08:50 Loratadine 10 Mg Tablet PO 10 mg DAILY ZEE Administration Magnesium Oxide 400 mg 10/04/24 09:00 10/04/24 08:50 Magnesium Oxide 400 Mg Tablet PO 400 mg DAILY ZEE Administration Methotrexate 12.5 mg 10/06/24 09:00 Methotrexate 2.5 Mg Tab (*Chemo) PO Th@0900 ZEE Montelukast Sodium 10 mg 10/03/24 21:00 10/03/24 20:42 Montelukast Sodium 10 Mg Tablet PO 10 mg HS ZEE Administration Ondansetron HCl 4 mg 10/03/24 12:14 10/03/24 18:35 Ondansetron Inj 4 Mg/2 Ml Vial IV PUSH 4 mg Q4H PRN Administration Nausea And Vomiting Oseltamivir Phosphate 75 mg 10/03/24 21:00 10/04/24 08:50 Oseltamivir Phosphate 75 Mg Capsule PO 10/08/24 20:59 75 mg Q12HR ZEE Administration Pantoprazole Sodium 40 mg 10/04/24 09:00 10/04/24 08:49 Pantoprazole 40 Mg Tablet PO 40 mg DAILY ZEE Administration Prednisone 40 mg 10/04/24 08:00 10/04/24 08:50 Prednisone 20 Mg Tablet PO 40 mg DAILY@0800 ZEE Administration Venlafaxine HCl 150 mg 10/03/24 18:00 10/03/24 18:31 Venlafaxine Hcl Xr 75 Mg Cap.Er.24h PO 150 mg QPM ZEE Administration Radiology Results: ITS Impressions Chest CTA 10/03/24 06:48 Impression: No evidence of pulmonary embolus, aortic dissection, or aortic aneurysm. Interval development of multiple focal, predominantly peripheral areas of groundglass opacity and focal consolidation. Findings suggest infectious/inflammatory process, including possibility of Covid 19 pneumonia. Clinical correlation required. Diffuse hepatic steatosis. Chest X-Ray 10/03/24 07:36 Impression: No acute abnormality. Labs Labs: Laboratory Results - last 24 hr 10/03/24 10/03/24 10/04/24 16:34 20:04 07:40 POC Capillary Glucose 280 H 282 H 259 H Lactic Acid 10/04/24 10/04/24 09:13 11:40 POC Capillary Glucose 335 H Lactic Acid 1.9
[2024-10-04 16:01] LABS: Glucose Point of Care 401 mg/dl (65-105)
[2024-10-04] MEDS: VENLAFAXINE HCL XR 75 MG CAP.ER.24H 150 MG PO (17:07)
[2024-10-04] MEDS: SODIUM CHLORIDE 0.9% IV 1,000 ML 75 ML IV CONT (17:07)
[2024-10-04 20:32] LABS: Glucose Point of Care 379 mg/dl (65-105)
[2024-10-04] MEDS: INSULIN ASPART (*BKC) 100 UNITS/ML 10 UNITS SUB-Q (21:44)
[2024-10-04] MEDS: METOPROLOL TARTRATE INJ 5 MG/5 ML VIAL IV PUSH (21:45)
[2024-10-04] MEDS: INSULIN GLARGINE (*BKC) 100 UNITS/ML 15 UNITS SUB-Q (21:45)
[2024-10-04] MEDS: ATORVASTATIN 20 MG TABLET PO (21:46)
[2024-10-04] MEDS: CYCLOBENZAPRINE HCL 10 MG TABLET PO (21:46)
[2024-10-04] MEDS: MONTELUKAST SODIUM 10 MG TABLET PO (21:46)
[2024-10-04] MEDS: FAMOTIDINE 20 MG TABLET PO (21:46)
[2024-10-05] VITALS (34 sets, daily range): BP systolic 160–180; BP diastolic 80–101; PULSE 89–116; RESP 18–24; TEMP 36.5–36.9; O2SAT 93–98
[2024-10-05 00:01] LABS: Glucose Point of Care 299 mg/dl (65-105)
[2024-10-05] MEDS: LEVALBUTEROL NEB 1.25 MG/3 ML INHALATION ×4 (03:06→20:33)
[2024-10-05 04:55] LABS: Hematocrit 36.4 % (37.0-47.0); Hemoglobin 11.5 g/dL (12.0-15.0); Mean Corpuscular HGB Conc 31.6 g/dl (32-36); Mean Corpuscular Volume 91.9 fl (80-100); Platelet Count Result 303 k/mm3 (150-375); Red Blood Count 3.96 M/mm3 (4.2-5.4); White Blood Count 9.1 K/mm3 (4.5-10.0)
[2024-10-05 05:12] LABS: Anion Gap 9 mmol/L (4-12); Blood Urea Nitrogen 8 mg/dL (7-17); Calcium 8.8 mg/dL (8.4-10.2); Carbon Dioxide 27 mmol/L (22-30); Chloride 100 mmol/L (98-107); Estimated CRCL calculation 155 ml/min; Estimated Glomerular Filt Rate > 60; Glucose 217 mg/dL (65-110); Potassium 3.5 mmol/L (3.4-5.0); Sodium 136 mmol/L (137-145)
[2024-10-05] MEDS: SODIUM CHLORIDE 0.9% IV 1,000 ML 75 ML IV CONT ×2 (06:24→20:28)
[2024-10-05 07:47] LABS: Glucose Point of Care 207 mg/dl (65-105)
[2024-10-05] MEDS: INSULIN ASPART (*BKC) 100 UNITS/ML SUB-Q ×3 (08:35→16:37)
[2024-10-05] MEDS: INSULIN ASPART (*BKC) 100 UNITS/ML 9 UNITS SUB-Q ×3 (08:35→16:38)
[2024-10-05] MEDS: lisinopriL 20 MG TABLET PO (09:07)
[2024-10-05] MEDS: ACETAMINOPHEN 500 MG TABLET 1000 MG PO ×2 (09:07→20:26)
[2024-10-05] MEDS: OSELTAMIVIR PHOSPHATE 75 MG CAPSULE PO ×2 (09:07→20:26)
[2024-10-05] MEDS: DICLOFENAC SOD 75 MG TABLET.EC PO ×2 (09:08→16:39)
[2024-10-05] MEDS: predniSONE 20 MG TABLET 40 MG PO (09:08)
[2024-10-05] MEDS: LORATADINE 10 MG TABLET PO (09:08)
[2024-10-05] MEDS: MAGNESIUM OXIDE 400 MG TABLET PO (09:08)
[2024-10-05] MEDS: ENOXAPARIN 40 MG/0.4 ML SYRINGE SUB-Q (09:09)
[2024-10-05] MEDS: PANTOPRAZOLE 40 MG TABLET PO (09:09)
[2024-10-05] MEDS: INSULIN GLARGINE (*BKC) 100 UNITS/ML 45 UNITS SUB-Q ×2 (09:12→20:27)
[2024-10-05] MEDS: FOLIC ACID 1 MG TABLET PO (09:13)
[2024-10-05] MEDS: GABAPENTIN 300 MG CAPSULE PO ×3 (09:13→16:38)
[2024-10-05] MEDS: METOPROLOL TARTRATE INJ 5 MG/5 ML VIAL IV PUSH ×4 (09:15→20:27)
[2024-10-05] MEDS: AZITHROMYCIN 500 MG/NS 250 ML 500 MG/250 ML BAG 250 MG IVPB (09:45)
--- NOTE | 2024-10-05 11:02 | PM.PNPUL ---
Progress Note: A&P Assessment and Plan (1) Pneumonia: Qualifiers: Laterality: unspecified laterality Lung location: unspecified part of lung Pneumonia type: due to unspecified organism Qualified Code(s): J18.9 - Pneumonia, unspecified organism Code(s): J18.9 - Pneumonia, unspecified organism Status: Acute (2) JEREMY on CPAP: Code(s): G47.33 - Obstructive sleep apnea (adult) (pediatric) Status: Chronic (3) Acute hypoxic respiratory failure: Code(s): J96.01 - Acute respiratory failure with hypoxia Status: Acute Assessment and Plan: A 49-year-old morbidly obese female presents with sleep-disordered breathing managed by auto CPAP, autoimmune disease on chronic immunosuppressive therapy, recent bilateral pneumonia requiring mechanical ventilation and a 7-day ICU stay last month, and insulin-dependent diabetes mellitus. She reports a few days of mild cough and shortness of breath. A CTA revealed new scattered bilateral infiltrates, with no evidence of pulmonary embolism or pleural effusions. She tested positive for influenza A and is currently being treated with Tamiflu and antibiotics for a possible bacterial coinfection. Over the last 24 hours her respiratory status has remained essentially unchanged. She is receiving nebulized short-acting bronchodilators for mild congestion. WBC not elevated. Plan: Continue with current regimen, out of bed to chair, DVT prophylaxis. Switch patient to subQ heparin twice daily for DVT prophylaxis, given her morbid obesity and increased risk for thromboembolic event. Anticipate discharge home in 1-2 days. (4) Diabetes mellitus, insulin dependent (IDDM), uncontrolled: Status: Acute (5) Morbidly obese: Code(s): E66.01 - Morbid (severe) obesity due to excess calories Status: Chronic (6) Vasculitis: Code(s): I77.6 - Arteritis, unspecified Status: Acute Subjective Date/time seen: 10/05/24 11:02 Interval history: Patient continues to have mild cough but has not been able to cough up any phlegm. No fever chills. No shortness of breath while on supplemental oxygen. Nebulized short-acting bronchodilators seems to help with mild chest congestion. Oxygen flow down to 1 liter/minute. She used own home CPAP device last night. She slept well. Review of Systems Review of Systems: All systems reviewed & are unremarkable except as noted in HPI and below (HPI and below) Exam Narrative: GENERAL APPEARANCE: Well developed, well nourished, alert and cooperative, morbidly obese and appears to be in no acute distress while breathing ambient air SKIN: Inspection of the skin reveals no rashes, ulcerations or petechiae. HEENT: Sclerae anicteric and conjunctivae pink and moist. Extraocular movements were intact and pupils were equal, round. The oral mucosa, hard and soft palate, tongue and posterior pharynx were normal. NECK: Supple. There was no thyroid enlargement, and no tenderness, or masses were felt. CHEST: Normal AP diameter and normal contour without any kyphoscoliosis. LUNGS: Auscultation of the lungs revealed normal breath sounds without any other adventitious sounds or rubs. CARDIAC: There was a regular rate and rhythm without any murmurs, gallops, rubs. ABDOMEN: Soft and nontender with normal bowel sounds. There was no organomegaly. No paradoxical abdominal movements in supine position. LYMPH NODES: No lymphadenopathy was appreciated in the neck. EXTREMITIES: No cyanosis, clubbing or edema. NEUROLOGIC: Alert and oriented x 3. Normal affect. Objective Data Vital Signs Vital Signs: Vital Signs - 24 hr 10/04/24 11:59 10/04/24 12:00 10/04/24 12:00 Temperature 36.7 C Pulse Rate 113 H 121 H Respiratory Rate 22 H Blood Pressure 147/86 H Pulse Oximetry 95 96 Oxygen Delivery Nasal Cannula Oxygen Flow Rate 1 10/04/24 13:31 10/04/24 13:49 10/04/24 14:00 Temperature Pulse Rate 114 H 117 H 113 H Respiratory Rate 20 20 Blood Pressure Pulse Oximetry Oxygen Delivery Oxygen Flow Rate 10/04/24 16:00 10/04/24 16:00 10/04/24 16:26 Temperature 36.7 C Pulse Rate 112 H 113 H Respiratory Rate 22 H Blood Pressure 152/106 H Pulse Oximetry 95 96 Oxygen Delivery Nasal Cannula Oxygen Flow Rate 1 10/04/24 18:00 10/04/24 20:00 10/04/24 20:00 Temperature Pulse Rate 115 H 121 H 120 H Respiratory Rate 22 H Blood Pressure Pulse Oximetry 96 Oxygen Delivery Nasal Cannula Oxygen Flow Rate 1 10/04/24 20:07 10/04/24 20:56 10/04/24 21:08 Temperature 36.7 C Pulse Rate 116 H 112 H 114 H Respiratory Rate 20 20 20 Blood Pressure 185/105 H Pulse Oximetry 95 Oxygen Delivery Oxygen Flow Rate 10/04/24 21:45 10/04/24 22:00 10/04/24 23:11 Temperature 36.8 C Pulse Rate 122 H 104 H 102 H Respiratory Rate 20 Blood Pressure 163/95 H Pulse Oximetry 94 Oxygen Delivery Oxygen Flow Rate 10/04/24 23:55 10/05/24 00:00 10/05/24 02:00 Temperature Pulse Rate 102 H 104 H 102 H Respiratory Rate 20 Blood Pressure Pulse Oximetry 94 Oxygen Delivery Nasal Cannula Oxygen Flow Rate 1 10/05/24 03:06 10/05/24 03:19 10/05/24 04:00 Temperature Pulse Rate 110 H 114 H 102 H Respiratory Rate 20 20 Blood Pressure Pulse Oximetry Oxygen Delivery Oxygen Flow Rate 10/05/24 04:10 10/05/24 05:05 10/05/24 06:00 Temperature 36.9 C Pulse Rate 99 103 H 104 H Respiratory Rate 18 20 Blood Pressure 160/80 H Pulse Oximetry 94 94 Oxygen Delivery Nasal Cannula Oxygen Flow Rate 1 10/05/24 08:00 10/05/24 08:00 10/05/24 08:03 Temperature 36.6 C Pulse Rate 116 H 108 H Respiratory Rate 20 Blood Pressure 169/95 H Pulse Oximetry 93 97 Oxygen Delivery Nasal Cannula Oxygen Flow Rate 1 10/05/24 08:39 10/05/24 08:39 10/05/24 08:50 Temperature Pulse Rate 103 H 103 H 110 H Respiratory Rate 20 20 20 Blood Pressure Pulse Oximetry 93 Oxygen Delivery Nasal Cannula Oxygen Flow Rate 1 10/05/24 09:15 10/05/24 10:00 Temperature Pulse Rate 113 H 99 Respiratory Rate Blood Pressure Pulse Oximetry Oxygen Delivery Oxygen Flow Rate Intake/Output Intake/Output: Intake & Output 10/02/24 10/03/24 10/04/24 10/05/24 23:59 23:59 23:59 23:59 Intake Total 1870 2070 1786.2 Output Total 800 2900 1400 Balance 1070 -830 386.2 Meds/Results Medications: Active Medications Generic Name Dose Route Start Last Admin Trade Name Freq PRN Reason Stop Dose Admin Acetaminophen 650 mg 10/03/24 08:20 Acetaminophen 325 Mg Tablet PO Q4H PRN Mild Pain (1-3) or Fever Acetaminophen 1,000 mg 10/03/24 21:00 10/05/24 09:07 Acetaminophen 500 Mg Tablet PO 1,000 mg Q12HR ZEE Administration Hydrocodone Bitart/Acetaminophen 1 tab 10/03/24 08:20 Hydrocodone/Acetaminophen (*Crx) 5-325 Mg Tablet PO Q4H PRN Pain Rated 4-6 Atorvastatin Calcium 20 mg 10/03/24 21:00 10/04/24 21:46 Atorvastatin 20 Mg Tablet PO 20 mg HS ZEE Administration Cyclobenzaprine HCl 10 mg 10/03/24 21:00 10/04/24 21:46 Cyclobenzaprine Hcl 10 Mg Tablet PO 10 mg HS ZEE Administration Dextrose 12.5 gm 10/04/24 17:29 Dextrose 50% 25 Gm/50 Ml Syringe IV PUSH PRN PRN Hypoglycemia Protocol Diclofenac Sodium 75 mg 10/04/24 09:00 10/05/24 09:08 Diclofenac Sod 75 Mg Tablet.Ec PO 75 mg BID ZEE Administration Enoxaparin Sodium 40 mg 10/04/24 09:00 10/05/24 09:09 Enoxaparin 40 Mg/0.4 Ml Syringe SUB-Q 40 mg DAILY ZEE Administration Famotidine 20 mg 10/03/24 21:00 10/04/24 21:46 Famotidine 20 Mg Tablet PO 20 mg HS ZEE Administration Fluticasone Propionate 1 spray 10/03/24 17:02 Fluticasone Propionate 0.05% Na Spr 16 Gm Btl (*Bkc) NASAL DAILY PRN allergy symptoms Folic Acid 1 mg 10/04/24 09:00 10/05/24 09:13 Folic Acid 1 Mg Tablet PO 1 mg DAILY ZEE Administration Gabapentin 300 mg 10/04/24 09:00 10/05/24 09:13 Gabapentin 300 Mg Capsule PO 300 mg TID ZEE Administration Glucagon 1 mg 10/04/24 17:29 Glucagon For Inj 1 Mg Vial IM PRN PRN Hypoglycemia Protocol Glucose 15 gm 10/04/24 17:29 Glucose Oral Gel 15 Gm Of Glucse In 37.5 Gm Tube PO PRN PRN Hypoglycemia Protocol Ceftriaxone Sodium 1 gm in 50 mls @ 100 mls/hr 10/04/24 08:00 10/05/24 09:28 Rocephin 1 Gm/Ns 50 Ml IVPB Infused Q24H ZEE Infusion Azithromycin 500 mg in 250 mls @ 250 mls/hr 10/04/24 09:00 10/05/24 09:45 Zithromax IVPB 250 mls/hr Q24H ZEE Administration Sodium Chloride 1,000 mls @ 75 mls/hr 10/04/24 14:55 10/05/24 06:24 Normal Saline Iv IV CONT 75 mls/hr .[id number] ZEE Administration Dextrose 1,000 mls @ 100 mls/hr 10/04/24 17:29 Dextrose 5% 1,000 Ml IVPB PRN PRN Hypoglycemia Protocol Insulin Aspart 4 - 8 units 10/04/24 17:40 10/05/24 08:35 Insulin Aspart (*Bkc) 100 Units/Ml SUB-Q 4 units TIDWM ZEE Administration Protocol Insulin Aspart 9 units 10/05/24 08:00 10/05/24 08:35 Insulin Aspart (*Bkc) 100 Units/Ml 0.067 units/kg (9 units) 9 units SUB-Q Administration TIDWM ZEE Insulin Glargine 45 units 10/05/24 09:00 10/05/24 09:12 Insulin Glargine (*Bkc) 100 Units/Ml SUB-Q 45 units Q12H ZEE Administration Levalbuterol HCl 1.25 mg 10/03/24 20:00 10/05/24 08:38 Levalbuterol Neb 1.25 Mg/3 Ml INHALATION 1.25 mg Q6HRT ZEE Administration Lisinopril 20 mg 10/04/24 09:00 10/05/24 09:07 Lisinopril 20 Mg Tablet PO 20 mg DAILY ZEE Administration Loratadine 10 mg 10/04/24 09:00 10/05/24 09:08 Loratadine 10 Mg Tablet PO 10 mg DAILY ZEE Administration Magnesium Oxide 400 mg 10/04/24 09:00 10/05/24 09:08 Magnesium Oxide 400 Mg Tablet PO 400 mg DAILY ZEE Administration Methotrexate 12.5 mg 10/06/24 09:00 Methotrexate 2.5 Mg Tab (*Chemo) PO Th@0900 ZEE Metoprolol Tartrate 5 mg 10/04/24 20:27 10/05/24 09:15 Metoprolol Tartrate Inj 5 Mg/5 Ml Vial IV PUSH 5 mg Q4H PRN Administration SBP greater than 160 Montelukast Sodium 10 mg 10/03/24 21:00 10/04/24 21:46 Montelukast Sodium 10 Mg Tablet PO 10 mg HS ZEE Administration Ondansetron HCl 4 mg 10/03/24 12:14 10/03/24 18:35 Ondansetron Inj 4 Mg/2 Ml Vial IV PUSH 4 mg Q4H PRN Administration Nausea And Vomiting Oseltamivir Phosphate 75 mg 10/03/24 21:00 10/05/24 09:07 Oseltamivir Phosphate 75 Mg Capsule PO 10/08/24 20:59 75 mg Q12HR ZEE Administration Pantoprazole Sodium 40 mg 10/04/24 09:00 10/05/24 09:09 Pantoprazole 40 Mg Tablet PO 40 mg DAILY ZEE Administration Prednisone 40 mg 10/04/24 08:00 10/05/24 09:08 Prednisone 20 Mg Tablet PO 40 mg DAILY@0800 ZEE Administration Venlafaxine HCl 150 mg 10/03/24 18:00 10/04/24 17:07 Venlafaxine Hcl Xr 75 Mg Cap.Er.24h PO 150 mg QPM ZEE Administration Radiology Results: ITS Impressions Chest CTA 10/03/24 06:48 Impression: No evidence of pulmonary embolus, aortic dissection, or aortic aneurysm. Interval development of multiple focal, predominantly peripheral areas of groundglass opacity and focal consolidation. Findings suggest infectious/inflammatory process, including possibility of Covid 19 pneumonia. Clinical correlation required. Diffuse hepatic steatosis. Chest X-Ray 10/03/24 07:36 Impression: No acute abnormality. Labs Labs: Laboratory Results - last 24 hr 10/04/24 10/04/24 10/04/24 11:40 15:51 20:09 WBC RBC Hgb Hct MCV MCH MCHC RDW Plt Count MPV Sodium Potassium Chloride Carbon Dioxide Anion Gap BUN Creatinine Estim Creat Clear Calc Estimated GFR Glucose POC Capillary Glucose 335 H 401 H 379 H Calcium 10/04/24 10/05/24 10/05/24 23:57 04:25 07:35 WBC 9.1 RBC 3.96 L Hgb 11.5 L Hct 36.4 L MCV 91.9 MCH 29.0 MCHC 31.6 L RDW 16.0 H Plt Count 303 MPV 10.0 Sodium 136 L Potassium 3.5 Chloride 100 Carbon Dioxide 27 Anion Gap 9 BUN 8 Creatinine 0.54 L Estim Creat Clear Calc 155 Estimated GFR > 60 Glucose 217 H POC Capillary Glucose 299 H 207 H Calcium 8.8
[2024-10-05 11:51] LABS: Glucose Point of Care 265 mg/dl (65-105)
[2024-10-05 15:46] LABS: Glucose Point of Care 296 mg/dl (65-105)
--- NOTE | 2024-10-05 15:51 | PM.IMPN ---
Progress Note: A&P Assessment and Plan (1) Influenza: Code(s): J11.1 - Influenza due to unidentified influenza virus with other respiratory manifestations Status: Acute (2) Pneumonia: Qualifiers: Laterality: unspecified laterality Lung location: unspecified part of lung Pneumonia type: due to unspecified organism Qualified Code(s): J18.9 - Pneumonia, unspecified organism Code(s): J18.9 - Pneumonia, unspecified organism Status: Acute (3) Acute hypoxic respiratory failure: Code(s): J96.01 - Acute respiratory failure with hypoxia Status: Acute (4) Lactic acidosis: Code(s): E87.20 - Acidosis, unspecified Status: Acute (5) Diabetes mellitus, insulin dependent (IDDM), uncontrolled: Status: Acute (6) Morbidly obese: Code(s): E66.01 - Morbid (severe) obesity due to excess calories Status: Chronic (7) Hyponatremia: Code(s): E87.1 - Hypo-osmolality and hyponatremia Status: Acute Plan PNA Influenza A positive On Tamiflu Vital signs improved and stable Continue Ceftriaxone and Azithromycin monitor cultures Order nasal MRSA Recent history of intubation Comorbid condition: Obesity hypoventilation syndrome Consult pulmonology Incentive spirometry encourage oral intake Acute hypoxemic resp failure on supplemental oxygen by nasal cannula continue titrating Tachycardia Possible due to Albuterol induced Changed to Xopenex CTA negative for PE EKG showed ST No hx of A.Fib Metoprolol 2.5 mg IV x 1. On IVF and monitor Obstructive sleep apnea/obesity hypoventilation syndrome Autopap or home unit ordered Autoimmune condition Continue Rituxan and methotrexate Continue home dose prednisone 20 mg p.o. q.d. Hypertension Continue home med Diabetes mellitus Continue insulin glargine 45 units b.i.d. Mild sliding scale Hypoglycemic protocol DVT prophylaxis Lovenox 40 mg subQ Subjective Date/time seen: 10/05/24 15:51 Interval history: Comfortable at bedside monitor Review of Systems Review of Systems: A 10 system review of systems was completed on the patient and is negative except for what is stated in the HPI. Nursing and ancillary documentation was reviewed. Exam Narrative: Differential diagnosis includes pulmonary embolism, upper respiratory infection, influenza, COVID, RSV, Const: Other: GENERAL: awake, alert, oriented, obese, mild dyspnea noted HEAD: Normocephalic, atraumatic. NECK: Supple. No adenopathy, no masses. RESPIRATORY: Airway patent, respirations mildly labored. Clear to auscultation bilaterally, no rales, no rhonchi, no wheezing at time of examination. CARDIOVASCULAR: Tachycardia without murmurs, rubs, or gallops. Peripheral pulses 2+ and equal bilaterally, bilateral lower extremity edema that patient reports is baseline ABDOMINAL: Soft, nontender, nondistended, Normoactive BS. MUSCULOSKELETAL: Moves all extremities. Strength/ROM intact without gross deformities. Ambulatory with steady gait SKIN: Warm, dry, pallor. Chronic erythema lower extremities (vasculitis/PVD) NEURO: A&O X3. Speech clear. Cranial nerves II-XII grossly intact, No ataxic movements. PSYCHIATRIC: Appropriate mood and affect. Normal interaction. Objective Data Vital Signs Vital Signs: Vital Signs - 24 hr 10/04/24 16:00 10/04/24 16:00 10/04/24 16:26 Temperature 98.1 F Pulse Rate 112 H 113 H Respiratory Rate 22 H Blood Pressure 152/106 H Pulse Oximetry 95 96 Oxygen Delivery Nasal Cannula Oxygen Flow Rate 1 10/04/24 18:00 10/04/24 20:00 10/04/24 20:00 Temperature Pulse Rate 115 H 121 H 120 H Respiratory Rate 22 H Blood Pressure Pulse Oximetry 96 Oxygen Delivery Nasal Cannula Oxygen Flow Rate 1 10/04/24 20:07 10/04/24 20:56 10/04/24 21:08 Temperature 98.1 F Pulse Rate 116 H 112 H 114 H Respiratory Rate 20 20 20 Blood Pressure 185/105 H Pulse Oximetry 95 Oxygen Delivery Oxygen Flow Rate 10/04/24 21:45 10/04/24 22:00 10/04/24 23:11 Temperature 98.3 F Pulse Rate 122 H 104 H 102 H Respiratory Rate 20 Blood Pressure 163/95 H Pulse Oximetry 94 Oxygen Delivery Oxygen Flow Rate 10/04/24 23:55 10/05/24 00:00 10/05/24 02:00 Temperature Pulse Rate 102 H 104 H 102 H Respiratory Rate 20 Blood Pressure Pulse Oximetry 94 Oxygen Delivery Nasal Cannula Oxygen Flow Rate 1 10/05/24 03:06 10/05/24 03:19 10/05/24 04:00 Temperature Pulse Rate 110 H 114 H 102 H Respiratory Rate 20 20 Blood Pressure Pulse Oximetry Oxygen Delivery Oxygen Flow Rate 10/05/24 04:10 10/05/24 05:05 10/05/24 06:00 Temperature 98.4 F Pulse Rate 99 103 H 104 H Respiratory Rate 18 20 Blood Pressure 160/80 H Pulse Oximetry 94 94 Oxygen Delivery Nasal Cannula Oxygen Flow Rate 1 10/05/24 08:00 10/05/24 08:00 10/05/24 08:03 Temperature 97.8 F Pulse Rate 116 H 108 H Respiratory Rate 20 Blood Pressure 169/95 H Pulse Oximetry 93 97 Oxygen Delivery Nasal Cannula Oxygen Flow Rate 1 10/05/24 08:39 10/05/24 08:39 10/05/24 08:50 Temperature Pulse Rate 103 H 103 H 110 H Respiratory Rate 20 20 20 Blood Pressure Pulse Oximetry 93 Oxygen Delivery Nasal Cannula Oxygen Flow Rate 1 10/05/24 09:15 10/05/24 10:00 10/05/24 11:47 Temperature Pulse Rate 113 H 99 Respiratory Rate Blood Pressure Pulse Oximetry 93 Oxygen Delivery Nasal Cannula Oxygen Flow Rate 1 10/05/24 11:58 10/05/24 12:00 10/05/24 12:56 Temperature 97.8 F Pulse Rate 108 H 103 H 107 H Respiratory Rate 20 Blood Pressure 180/100 H Pulse Oximetry 98 Oxygen Delivery Oxygen Flow Rate 10/05/24 14:00 10/05/24 14:00 10/05/24 14:01 Temperature Pulse Rate 103 H 104 H Respiratory Rate 20 Blood Pressure Pulse Oximetry 94 98 Oxygen Delivery Room Air Nasal Cannula Oxygen Flow Rate 1 10/05/24 14:01 10/05/24 14:12 10/05/24 15:16 Temperature Pulse Rate 108 H 105 H Respiratory Rate 20 24 H Blood Pressure Pulse Oximetry 95 Oxygen Delivery Room Air Oxygen Flow Rate 10/05/24 15:47 Temperature Pulse Rate 110 H Respiratory Rate 20 Blood Pressure Pulse Oximetry 94 Oxygen Delivery Autopap Oxygen Flow Rate Intake/Output Intake/Output: Intake & Output 10/02/24 10/03/24 10/04/24 10/05/24 23:59 23:59 23:59 23:59 Intake Total 1870 2070 2036.2 Output Total 800 2900 1400 Balance 1070 -830 636.2 Meds/Results Medications: Active Medications Generic Name Dose Route Start Last Admin Trade Name Freq PRN Reason Stop Dose Admin Acetaminophen 650 mg 10/03/24 08:20 Acetaminophen 325 Mg Tablet PO Q4H PRN Mild Pain (1-3) or Fever Acetaminophen 1,000 mg 10/03/24 21:00 10/05/24 09:07 Acetaminophen 500 Mg Tablet PO 1,000 mg Q12HR ZEE Administration Hydrocodone Bitart/Acetaminophen 1 tab 10/03/24 08:20 Hydrocodone/Acetaminophen (*Crx) 5-325 Mg Tablet PO Q4H PRN Pain Rated 4-6 Atorvastatin Calcium 20 mg 10/03/24 21:00 10/04/24 21:46 Atorvastatin 20 Mg Tablet PO 20 mg HS ZEE Administration Cyclobenzaprine HCl 10 mg 10/03/24 21:00 10/04/24 21:46 Cyclobenzaprine Hcl 10 Mg Tablet PO 10 mg HS ZEE Administration Dextrose 12.5 gm 10/04/24 17:29 Dextrose 50% 25 Gm/50 Ml Syringe IV PUSH PRN PRN Hypoglycemia Protocol Diclofenac Sodium 75 mg 10/04/24 09:00 10/05/24 09:08 Diclofenac Sod 75 Mg Tablet.Ec PO 75 mg BID ZEE Administration Enoxaparin Sodium 40 mg 10/04/24 09:00 10/05/24 09:09 Enoxaparin 40 Mg/0.4 Ml Syringe SUB-Q 40 mg DAILY ZEE Administration Famotidine 20 mg 10/03/24 21:00 10/04/24 21:46 Famotidine 20 Mg Tablet PO 20 mg HS ZEE Administration Fluticasone Propionate 1 spray 10/03/24 17:02 Fluticasone Propionate 0.05% Na Spr 16 Gm Btl (*Bkc) NASAL DAILY PRN allergy symptoms Folic Acid 1 mg 10/04/24 09:00 10/05/24 09:13 Folic Acid 1 Mg Tablet PO 1 mg DAILY ZEE Administration Gabapentin 300 mg 10/04/24 09:00 10/05/24 12:00 Gabapentin 300 Mg Capsule PO 300 mg TID ZEE Administration Glucagon 1 mg 10/04/24 17:29 Glucagon For Inj 1 Mg Vial IM PRN PRN Hypoglycemia Protocol Glucose 15 gm 10/04/24 17:29 Glucose Oral Gel 15 Gm Of Glucse In 37.5 Gm Tube PO PRN PRN Hypoglycemia Protocol Ceftriaxone Sodium 1 gm in 50 mls @ 100 mls/hr 10/04/24 08:00 10/05/24 09:28 Rocephin 1 Gm/Ns 50 Ml IVPB Infused Q24H ZEE Infusion Azithromycin 500 mg in 250 mls @ 250 mls/hr 10/04/24 09:00 10/05/24 09:45 Zithromax IVPB 250 mls/hr Q24H ZEE Administration Sodium Chloride 1,000 mls @ 75 mls/hr 10/04/24 14:55 10/05/24 06:24 Normal Saline Iv IV CONT 75 mls/hr .[id number] ZEE Administration Dextrose 1,000 mls @ 100 mls/hr 10/04/24 17:29 Dextrose 5% 1,000 Ml IVPB PRN PRN Hypoglycemia Protocol Insulin Aspart 4 - 8 units 10/04/24 17:40 10/05/24 11:59 Insulin Aspart (*Bkc) 100 Units/Ml SUB-Q 5 units TIDWM ZEE Administration Protocol Insulin Aspart 9 units 10/05/24 08:00 10/05/24 11:59 Insulin Aspart (*Bkc) 100 Units/Ml 0.067 units/kg (9 units) 9 units SUB-Q Administration TIDWM ZEE Insulin Glargine 45 units 10/05/24 09:00 10/05/24 09:12 Insulin Glargine (*Bkc) 100 Units/Ml SUB-Q 45 units Q12H ZEE Administration Levalbuterol HCl 1.25 mg 10/03/24 20:00 10/05/24 14:00 Levalbuterol Neb 1.25 Mg/3 Ml INHALATION 1.25 mg Q6HRT ZEE Administration Lisinopril 20 mg 10/04/24 09:00 10/05/24 09:07 Lisinopril 20 Mg Tablet PO 20 mg DAILY ZEE Administration Loratadine 10 mg 10/04/24 09:00 10/05/24 09:08 Loratadine 10 Mg Tablet PO 10 mg DAILY ZEE Administration Magnesium Oxide 400 mg 10/04/24 09:00 10/05/24 09:08 Magnesium Oxide 400 Mg Tablet PO 400 mg DAILY ZEE Administration Methotrexate 12.5 mg 10/06/24 09:00 Methotrexate 2.5 Mg Tab (*Chemo) PO Th@0900 ZEE Metoprolol Tartrate 5 mg 10/04/24 20:27 10/05/24 12:56 Metoprolol Tartrate Inj 5 Mg/5 Ml Vial IV PUSH 5 mg Q4H PRN Administration SBP greater than 160 Montelukast Sodium 10 mg 10/03/24 21:00 10/04/24 21:46 Montelukast Sodium 10 Mg Tablet PO 10 mg HS ZEE Administration Ondansetron HCl 4 mg 10/03/24 12:14 10/03/24 18:35 Ondansetron Inj 4 Mg/2 Ml Vial IV PUSH 4 mg Q4H PRN Administration Nausea And Vomiting Oseltamivir Phosphate 75 mg 10/03/24 21:00 10/05/24 09:07 Oseltamivir Phosphate 75 Mg Capsule PO 10/08/24 20:59 75 mg Q12HR ZEE Administration Pantoprazole Sodium 40 mg 10/04/24 09:00 10/05/24 09:09 Pantoprazole 40 Mg Tablet PO 40 mg DAILY ZEE Administration Prednisone 40 mg 10/04/24 08:00 10/05/24 09:08 Prednisone 20 Mg Tablet PO 40 mg DAILY@0800 ZEE Administration Venlafaxine HCl 150 mg 10/03/24 18:00 10/04/24 17:07 Venlafaxine Hcl Xr 75 Mg Cap.Er.24h PO 150 mg QPM ZEE Administration Radiology Results: ITS Impressions Chest CTA 10/03/24 06:48 Impression: No evidence of pulmonary embolus, aortic dissection, or aortic aneurysm. Interval development of multiple focal, predominantly peripheral areas of groundglass opacity and focal consolidation. Findings suggest infectious/inflammatory process, including possibility of Covid 19 pneumonia. Clinical correlation required. Diffuse hepatic steatosis. Chest X-Ray 10/03/24 07:36 Impression: No acute abnormality. Labs Labs: Laboratory Results - last 24 hr 10/04/24 10/04/24 10/04/24 15:51 20:09 23:57 WBC RBC Hgb Hct MCV MCH MCHC RDW Plt Count MPV Sodium Potassium Chloride Carbon Dioxide Anion Gap BUN Creatinine Estim Creat Clear Calc Estimated GFR Glucose POC Capillary Glucose 401 H 379 H 299 H Calcium 10/05/24 10/05/24 10/05/24 04:25 07:35 11:34 WBC 9.1 RBC 3.96 L Hgb 11.5 L Hct 36.4 L MCV 91.9 MCH 29.0 MCHC 31.6 L RDW 16.0 H Plt Count 303 MPV 10.0 Sodium 136 L Potassium 3.5 Chloride 100 Carbon Dioxide 27 Anion Gap 9 BUN 8 Creatinine 0.54 L Estim Creat Clear Calc 155 Estimated GFR > 60 Glucose 217 H POC Capillary Glucose 207 H 265 H Calcium 8.8 10/05/24 15:38 WBC RBC Hgb Hct MCV MCH MCHC RDW Plt Count MPV Sodium Potassium Chloride Carbon Dioxide Anion Gap BUN Creatinine Estim Creat Clear Calc Estimated GFR Glucose POC Capillary Glucose 296 H Calcium Quality VTE Prophylaxis VTE prophylaxis: pharmacologic ordered
[2024-10-05] MEDS: VENLAFAXINE HCL XR 75 MG CAP.ER.24H 150 MG PO (17:31)
[2024-10-05] MEDS: ATORVASTATIN 20 MG TABLET PO (20:25)
[2024-10-05] MEDS: FAMOTIDINE 20 MG TABLET PO (20:26)
[2024-10-05] MEDS: CYCLOBENZAPRINE HCL 10 MG TABLET PO (20:26)
[2024-10-05] MEDS: MONTELUKAST SODIUM 10 MG TABLET PO (20:26)
[2024-10-05 20:34] LABS: Glucose Point of Care 286 mg/dl (65-105)
[2024-10-06] VITALS (32 sets, daily range): BP systolic 142–190; BP diastolic 72–109; PULSE 85–120; RESP 18–22; TEMP 36.4–36.9; O2SAT 93–100
[2024-10-06] MEDS: METOPROLOL TARTRATE INJ 5 MG/5 ML VIAL IV PUSH ×3 (01:03→21:38)
[2024-10-06] MEDS: LEVALBUTEROL NEB 1.25 MG/3 ML INHALATION ×4 (02:13→20:05)
[2024-10-06 05:19] LABS: Basophils Percent Auto 0.3 % (0.2-1.2); Eosinophils Absolute Auto 0.1 K/mm3 (0-0.3); Eosinophils Percent Auto 0.4 % (0-4.4); Hematocrit 37.7 % (37.0-47.0); Hemoglobin 11.9 g/dL (12.0-15.0); Immature Granulocyte Absolute 0.15 K/mm3 (0.00-0.031); Immature Granulocyte Percent A 1.3 % (0-0.5); Lymphocytes Absolute Auto 2.71 K/mm3 (0.9-3.2); Lymphocytes Percent Auto 24.3 % (18.3-44.2); Mean Corpuscular HGB Conc 31.6 g/dl (32-36); Mean Corpuscular Hemoglobin 29.3 pg (26-34); Mean Corpuscular Volume 92.9 fl (80-100); Monocytes Percent Auto 9.3 % (2.6-8.5); Neutrophils Absolute Auto 7.2 K/mm3 (1.3-6.7); Neutrophils Percent Auto 64.4 % (45.5-73.1); Platelet Count Result 314 k/mm3 (150-375); Red Blood Count 4.06 M/mm3 (4.2-5.4); Red Cell Distribution Width 16.1 % (11.5-14.5); White Blood Count 11.2 K/mm3 (4.5-10.0)
[2024-10-06 05:30] LABS: Alanine Aminotransferase 68 U/L (6-35); Albumin Level 3.9 g/dL (3.5-5.1); Alkaline Phosphatase 48 U/L (38-126); Anion Gap 9 mmol/L (4-12); Aspartate Amino Transferase 28 U/L (14-36); Bilirubin,Total 0.5 mg/dL (0.2-1.3); Blood Urea Nitrogen 10 mg/dL (7-17); Calcium 8.9 mg/dL (8.4-10.2); Carbon Dioxide 25 mmol/L (22-30); Chloride 102 mmol/L (98-107); Estimated CRCL calculation 176 ml/min; Estimated Glomerular Filt Rate > 60; Glucose 102 mg/dL (65-110); Sodium 136 mmol/L (137-145)
[2024-10-06 05:31] LABS: Lactic Acid Reflex 1.5 mmol/L (0.7-2.0)
[2024-10-06 07:46] LABS: Glucose Point of Care 88 mg/dl (65-105)
[2024-10-06] MEDS: ACETAMINOPHEN 500 MG TABLET 1000 MG PO ×2 (09:22→20:48)
[2024-10-06] MEDS: MAGNESIUM OXIDE 400 MG TABLET PO (09:22)
[2024-10-06] MEDS: DICLOFENAC SOD 75 MG TABLET.EC PO ×2 (09:22→17:20)
[2024-10-06] MEDS: LORATADINE 10 MG TABLET PO (09:23)
[2024-10-06] MEDS: OSELTAMIVIR PHOSPHATE 75 MG CAPSULE PO ×2 (09:23→20:48)
[2024-10-06] MEDS: PANTOPRAZOLE 40 MG TABLET PO (09:24)
[2024-10-06] MEDS: lisinopriL 20 MG TABLET PO (09:24)
[2024-10-06] MEDS: FOLIC ACID 1 MG TABLET PO (09:24)
[2024-10-06] MEDS: GABAPENTIN 300 MG CAPSULE PO ×3 (09:24→17:20)
[2024-10-06] MEDS: INSULIN GLARGINE (*BKC) 100 UNITS/ML 45 UNITS SUB-Q ×2 (09:29→20:53)
[2024-10-06] MEDS: INSULIN ASPART (*BKC) 100 UNITS/ML 9 UNITS SUB-Q ×3 (09:29→17:28)
--- NOTE | 2024-10-06 10:05 | P.PNPL_ITS ---
Progress Note: A&P Assessment and Plan (1) JEREMY on CPAP: Code(s): G47.33 - Obstructive sleep apnea (adult) (pediatric) Status: Chronic (2) Pneumonia: Qualifiers: Laterality: unspecified laterality Lung location: unspecified part of lung Pneumonia type: due to unspecified organism Qualified Code(s): J18.9 - Pneumonia, unspecified organism Code(s): J18.9 - Pneumonia, unspecified organism Status: Acute (3) Acute hypoxic respiratory failure: Code(s): J96.01 - Acute respiratory failure with hypoxia Status: Acute Assessment and Plan: A 49-year-old morbidly obese female presents with sleep-disordered breathing managed by auto CPAP, autoimmune disease on chronic immunosuppressive therapy, recent bilateral pneumonia requiring mechanical ventilation and a 7-day ICU stay last month, and insulin-dependent diabetes mellitus. She reports a few days of mild cough and shortness of breath. A CTA revealed new scattered bilateral infiltrates, with no evidence of pulmonary embolism or pleural effusions. She tested positive for influenza A and is currently being treated with Tamiflu and antibiotics for a possible bacterial coinfection. Over the last 24 hours her oxygen requirements have significantly decreased and is currently breathing room air. However she continues to have a chest congestion with cough but no sputum production. On physical exam she has no wheezing. WBC not elevated. Plan: Continue with current regimen, out of bed to chair, DVT prophylaxis. Repeat chest x-ray in a.m., add Mucinex to current regimen. (4) Morbidly obese: Code(s): E66.01 - Morbid (severe) obesity due to excess calories Status: Chronic (5) Diabetes mellitus, insulin dependent (IDDM), uncontrolled: Status: Acute (6) Influenza: Code(s): J11.1 - Influenza due to unidentified influenza virus with other respiratory manifestations Status: Acute (7) Vasculitis: Code(s): I77.6 - Arteritis, unspecified Status: Acute Subjective Date/time seen: 10/06/24 10:05 Interval history: Patient continues to have a mild cough with no significant sputum production. She has no fever chills hemoptysis. Currently on room air. Nebulized short- acting bronchodilators seem to provide some help as far as coughing. Using own CPAP machine at night. Review of Systems Review of Systems: All systems reviewed & are unremarkable except as noted in HPI and below (HPI and below) Exam Narrative: GENERAL APPEARANCE: Well developed, well nourished, alert and cooperative, morbidly obese and appears to be in no acute distress while breathing ambient air SKIN: Inspection of the skin reveals no rashes, ulcerations or petechiae. HEENT: Sclerae anicteric and conjunctivae pink and moist. Extraocular movements were intact and pupils were equal, round. The oral mucosa, hard and soft palate, tongue and posterior pharynx were normal. NECK: Supple. There was no thyroid enlargement, and no tenderness, or masses were felt. CHEST: Normal AP diameter and normal contour without any kyphoscoliosis. LUNGS: Auscultation of the lungs revealed normal breath sounds without any other adventitious sounds or rubs. CARDIAC: There was a regular rate and rhythm without any murmurs, gallops, rubs. ABDOMEN: Soft and nontender with normal bowel sounds. There was no organomegaly. No paradoxical abdominal movements in supine position. LYMPH NODES: No lymphadenopathy was appreciated in the neck. EXTREMITIES: No cyanosis, clubbing or edema. NEUROLOGIC: Alert and oriented x 3. Normal affect. Objective Data Vital Signs Vital Signs: Vital Signs - 24 hr 10/05/24 11:47 10/05/24 11:58 10/05/24 12:00 Temperature 36.6 C Pulse Rate 108 H 103 H Respiratory Rate 20 Blood Pressure 180/100 H Pulse Oximetry 93 98 Oxygen Delivery Nasal Cannula Oxygen Flow Rate 1 Fraction of Inspired Oxygen 10/05/24 12:56 10/05/24 14:00 10/05/24 14:00 Temperature Pulse Rate 107 H 103 H Respiratory Rate Blood Pressure Pulse Oximetry 94 Oxygen Delivery Room Air Oxygen Flow Rate Fraction of Inspired Oxygen 10/05/24 14:01 10/05/24 14:01 10/05/24 14:12 Temperature Pulse Rate 104 H 108 H 105 H Respiratory Rate 20 20 24 H Blood Pressure Pulse Oximetry 98 Oxygen Delivery Nasal Cannula Oxygen Flow Rate 1 Fraction of Inspired Oxygen 10/05/24 15:16 10/05/24 15:47 10/05/24 16:00 Temperature Pulse Rate 110 H 107 H Respiratory Rate 20 Blood Pressure Pulse Oximetry 95 94 Oxygen Delivery Room Air Autopap Oxygen Flow Rate Fraction of Inspired Oxygen 10/05/24 16:18 10/05/24 16:41 10/05/24 18:00 Temperature 36.9 C Pulse Rate 112 H 105 H 103 H Respiratory Rate 22 H Blood Pressure 176/101 H Pulse Oximetry 98 Oxygen Delivery Oxygen Flow Rate Fraction of Inspired Oxygen 10/05/24 19:56 10/05/24 20:00 10/05/24 20:08 Temperature 36.5 C Pulse Rate 94 98 99 Respiratory Rate 18 22 H Blood Pressure 167/98 H Pulse Oximetry 97 96 Oxygen Delivery Room Air Oxygen Flow Rate Fraction of Inspired Oxygen 10/05/24 20:27 10/05/24 20:34 10/05/24 20:34 Temperature Pulse Rate 103 H 89 Respiratory Rate 20 Blood Pressure Pulse Oximetry 94 Oxygen Delivery Room Air Oxygen Flow Rate Fraction of Inspired Oxygen 10/05/24 20:40 10/05/24 22:00 10/06/24 00:00 Temperature Pulse Rate 95 93 115 H Respiratory Rate 20 Blood Pressure Pulse Oximetry Oxygen Delivery Oxygen Flow Rate Fraction of Inspired Oxygen 10/06/24 00:35 10/06/24 01:03 10/06/24 01:04 Temperature 36.4 C Pulse Rate 99 98 99 Respiratory Rate 22 H 22 H Blood Pressure 172/109 H Pulse Oximetry 98 98 Oxygen Delivery Room Air Oxygen Flow Rate Fraction of Inspired Oxygen 28 10/06/24 02:00 10/06/24 02:13 10/06/24 02:20 Temperature Pulse Rate 97 105 H 93 Respiratory Rate 18 18 Blood Pressure Pulse Oximetry Oxygen Delivery Oxygen Flow Rate Fraction of Inspired Oxygen 10/06/24 03:52 10/06/24 03:53 10/06/24 04:00 Temperature 36.8 C Pulse Rate 86 93 87 Respiratory Rate 20 18 Blood Pressure 145/74 H Pulse Oximetry 100 98 Oxygen Delivery Autopap Oxygen Flow Rate Fraction of Inspired Oxygen 10/06/24 06:00 10/06/24 07:56 10/06/24 07:56 Temperature Pulse Rate 108 H 100 Respiratory Rate 18 Blood Pressure Pulse Oximetry 95 Oxygen Delivery Room Air Oxygen Flow Rate Fraction of Inspired Oxygen 10/06/24 07:57 10/06/24 08:10 Temperature 36.9 C Pulse Rate 85 103 H Respiratory Rate 20 18 Blood Pressure 142/72 H Pulse Oximetry 100 Oxygen Delivery Oxygen Flow Rate Fraction of Inspired Oxygen Intake/Output Intake/Output: Intake & Output 10/03/24 10/04/24 10/05/24 10/06/24 23:59 23:59 23:59 23:59 Intake Total 1870 0 4146.2 790 Output Total 800 2900 2050 500 Balance 1070 -830 2096.2 290 Meds/Results Medications: Active Medications Generic Name Dose Route Start Last Admin Trade Name Freq PRN Reason Stop Dose Admin Acetaminophen 650 mg 10/03/24 08:20 Acetaminophen 325 Mg Tablet PO Q4H PRN Mild Pain (1-3) or Fever Acetaminophen 1,000 mg 10/03/24 21:00 10/06/24 09:22 Acetaminophen 500 Mg Tablet PO 1,000 mg Q12HR ZEE Administration Hydrocodone Bitart/Acetaminophen 1 tab 10/03/24 08:20 Hydrocodone/Acetaminophen (*Crx) 5-325 Mg Tablet PO Q4H PRN Pain Rated 4-6 Atorvastatin Calcium 20 mg 10/03/24 21:00 10/05/24 20:25 Atorvastatin 20 Mg Tablet PO 20 mg HS ZEE Administration Azithromycin 500 mg 10/06/24 09:15 Azithromycin 250 Mg Tablet PO 10/07/24 09:01 DAILY ZEE Cefdinir 300 mg 10/06/24 09:15 Cefdinir 300 Mg Capsule PO 10/09/24 21:01 Q12HR ZEE Cyclobenzaprine HCl 10 mg 10/03/24 21:00 10/05/24 20:26 Cyclobenzaprine Hcl 10 Mg Tablet PO 10 mg HS ZEE Administration Dextrose 12.5 gm 10/04/24 17:29 Dextrose 50% 25 Gm/50 Ml Syringe IV PUSH PRN PRN Hypoglycemia Protocol Diclofenac Sodium 75 mg 10/04/24 09:00 10/06/24 09:22 Diclofenac Sod 75 Mg Tablet.Ec PO 75 mg BID ZEE Administration Enoxaparin Sodium 40 mg 10/04/24 09:00 10/05/24 09:09 Enoxaparin 40 Mg/0.4 Ml Syringe SUB-Q 40 mg DAILY ZEE Administration Famotidine 20 mg 10/03/24 21:00 10/05/24 20:26 Famotidine 20 Mg Tablet PO 20 mg HS ZEE Administration Fluticasone Propionate 1 spray 10/03/24 17:02 Fluticasone Propionate 0.05% Na Spr 16 Gm Btl (*Bkc) NASAL DAILY PRN allergy symptoms Folic Acid 1 mg 10/04/24 09:00 10/06/24 09:24 Folic Acid 1 Mg Tablet PO 1 mg DAILY ZEE Administration Gabapentin 300 mg 10/04/24 09:00 10/06/24 09:24 Gabapentin 300 Mg Capsule PO 300 mg TID ZEE Administration Glucagon 1 mg 10/04/24 17:29 Glucagon For Inj 1 Mg Vial IM PRN PRN Hypoglycemia Protocol Glucose 15 gm 10/04/24 17:29 Glucose Oral Gel 15 Gm Of Glucse In 37.5 Gm Tube PO PRN PRN Hypoglycemia Protocol Sodium Chloride 1,000 mls @ 75 mls/hr 10/04/24 14:55 10/05/24 20:28 Normal Saline Iv IV CONT 75 mls/hr .[id number] ZEE Administration Dextrose 1,000 mls @ 100 mls/hr 10/04/24 17:29 Dextrose 5% 1,000 Ml IVPB PRN PRN Hypoglycemia Protocol Insulin Aspart 4 - 8 units 10/04/24 17:40 10/06/24 09:08 Insulin Aspart (*Bkc) 100 Units/Ml SUB-Q Not Given TIDWM [facility] Protocol Insulin Aspart 9 units 10/05/24 08:00 10/06/24 09:29 Insulin Aspart (*Bkc) 100 Units/Ml 0.067 units/kg (9 units) 9 units SUB-Q Administration TIDWM [facility] Insulin Glargine 45 units 10/05/24 09:00 10/06/24 09:29 Insulin Glargine (*Bkc) 100 Units/Ml SUB-Q 45 units Q12H ZEE Administration Levalbuterol HCl 1.25 mg 10/03/24 20:00 10/06/24 07:56 Levalbuterol Neb 1.25 Mg/3 Ml INHALATION 1.25 mg Q6HRT ZEE Administration Lisinopril 20 mg 10/04/24 09:00 10/06/24 09:24 Lisinopril 20 Mg Tablet PO 20 mg DAILY ZEE Administration Loratadine 10 mg 10/04/24 09:00 10/06/24 09:23 Loratadine 10 Mg Tablet PO 10 mg DAILY ZEE Administration Magnesium Oxide 400 mg 10/04/24 09:00 10/06/24 09:22 Magnesium Oxide 400 Mg Tablet PO 400 mg DAILY ZEE Administration Methotrexate 12.5 mg 10/06/24 09:00 Methotrexate 2.5 Mg Tab (*Chemo) PO Th@0900 [facility] Metoprolol Tartrate 5 mg 10/04/24 20:27 10/06/24 01:03 Metoprolol Tartrate Inj 5 Mg/5 Ml Vial IV PUSH 5 mg Q4H PRN Administration SBP greater than 160 Montelukast Sodium 10 mg 10/03/24 21:00 10/05/24 20:26 Montelukast Sodium 10 Mg Tablet PO 10 mg HS ZEE Administration Ondansetron HCl 4 mg 10/03/24 12:14 10/03/24 18:35 Ondansetron Inj 4 Mg/2 Ml Vial IV PUSH 4 mg Q4H PRN Administration Nausea And Vomiting Oseltamivir Phosphate 75 mg 10/03/24 21:00 10/06/24 09:23 Oseltamivir Phosphate 75 Mg Capsule PO 10/08/24 20:59 75 mg Q12HR ZEE Administration Pantoprazole Sodium 40 mg 10/04/24 09:00 10/06/24 09:24 Pantoprazole 40 Mg Tablet PO 40 mg DAILY ZEE Administration Prednisone 40 mg 10/04/24 08:00 10/05/24 09:08 Prednisone 20 Mg Tablet PO 40 mg DAILY@0800 ZEE Administration Venlafaxine HCl 150 mg 10/03/24 18:00 10/05/24 17:31 Venlafaxine Hcl Xr 75 Mg Cap.Er.24h PO 150 mg QPM ZEE Administration Radiology Results: ITS Impressions Chest CTA 10/03/24 06:48 Impression: No evidence of pulmonary embolus, aortic dissection, or aortic aneurysm. Interval development of multiple focal, predominantly peripheral areas of groundglass opacity and focal consolidation. Findings suggest infectious/inflammatory process, including possibility of Covid 19 pneumonia. Clinical correlation required. Diffuse hepatic steatosis. Chest X-Ray 10/03/24 07:36 Impression: No acute abnormality. Labs Labs: Laboratory Results - last 24 hr 10/05/24 10/05/24 10/05/24 11:34 15:38 20:10 WBC RBC Hgb Hct MCV MCH MCHC RDW Plt Count MPV Immature Gran % (Auto) Neut % (Auto) Lymph % (Auto) [place] % (Auto) Eos % (Auto) Baso % (Auto) Lymph # (Auto) [place] # (Auto) Eos # (Auto) Baso # (Auto) Abs Immat Gran (auto) Absolute Neuts (auto) Absolute Nucleated RBC Nucleated RBC % Sodium Potassium Chloride Carbon Dioxide Anion Gap BUN Creatinine Estim Creat Clear Calc Estimated GFR Glucose POC Capillary Glucose 265 H 296 H 286 H Lactic Acid Calcium Magnesium Total Bilirubin AST ALT Alkaline Phosphatase Total Protein Albumin 10/06/24 10/06/24 05:13 07:36 WBC 11.2 H RBC 4.06 L Hgb 11.9 L Hct 37.7 MCV 92.9 MCH 29.3 MCHC 31.6 L RDW 16.1 H Plt Count 314 MPV 10.0 Immature Gran % (Auto) 1.3 H Neut % (Auto) 64.4 Lymph % (Auto) 24.3 [place] % (Auto) 9.3 H Eos % (Auto) 0.4 Baso % (Auto) 0.3 Lymph # (Auto) 2.71 [place] # (Auto) 1.0 H Eos # (Auto) 0.1 Baso # (Auto) 0.0 Abs Immat Gran (auto) 0.15 H Absolute Neuts (auto) 7.2 H Absolute Nucleated RBC 0.000 Nucleated RBC % 0.0 Sodium 136 L Potassium 4.0 Chloride 102 Carbon Dioxide 25 Anion Gap 9 BUN 10 Creatinine 0.47 L Estim Creat Clear Calc 176 Estimated GFR > 60 Glucose 102 POC Capillary Glucose 88 Lactic Acid 1.5 Calcium 8.9 Magnesium 2.0 Total Bilirubin 0.5 AST 28 ALT 68 H Alkaline Phosphatase 48 Total Protein 7.0 Albumin 3.9
[2024-10-06] MEDS: predniSONE 20 MG TABLET 40 MG PO (11:00)
[2024-10-06] MEDS: BENZONATATE 100 MG CAPSULE 200 MG PO ×2 (11:01→17:19)
[2024-10-06] MEDS: SODIUM CHLORIDE 0.9% IV 1,000 ML 75 ML IV CONT (11:03)
[2024-10-06 11:35] LABS: Glucose Point of Care 125 mg/dl (65-105)
[2024-10-06] MEDS: CEFDINIR 300 MG CAPSULE PO ×2 (11:53→20:48)
[2024-10-06] MEDS: AZITHROMYCIN 250 MG TABLET 500 MG PO (11:53)
[2024-10-06 15:49] LABS: Glucose Point of Care 235 mg/dl (65-105)
--- NOTE | 2024-10-06 16:08 | PM.IMPN ---
Progress Note: A&P Assessment and Plan (1) Influenza: Code(s): J11.1 - Influenza due to unidentified influenza virus with other respiratory manifestations Status: Acute (2) Pneumonia: Qualifiers: Laterality: unspecified laterality Lung location: unspecified part of lung Pneumonia type: due to unspecified organism Qualified Code(s): J18.9 - Pneumonia, unspecified organism Code(s): J18.9 - Pneumonia, unspecified organism Status: Acute (3) Acute hypoxic respiratory failure: Code(s): J96.01 - Acute respiratory failure with hypoxia Status: Acute (4) Lactic acidosis: Code(s): E87.20 - Acidosis, unspecified Status: Acute (5) Diabetes mellitus, insulin dependent (IDDM), uncontrolled: Status: Acute (6) Morbidly obese: Code(s): E66.01 - Morbid (severe) obesity due to excess calories Status: Chronic (7) Hyponatremia: Code(s): E87.1 - Hypo-osmolality and hyponatremia Status: Acute Plan PNA Influenza A positive On Tamiflu Vital signs improved and stable Continue Ceftriaxone and Azithromycin monitor cultures Order nasal MRSA Recent history of intubation Comorbid condition: Obesity hypoventilation syndrome Consult pulmonology Incentive spirometry encourage oral intake Acute hypoxemic resp failure now on room air continue titrating Tachycardia Possible due to Albuterol induced Changed to Xopenex CTA negative for PE EKG showed ST No hx of A.Fib Metoprolol 2.5 mg IV x 1. On IVF and monitor Obstructive sleep apnea/obesity hypoventilation syndrome Autopap or home unit ordered Autoimmune condition Continue Rituxan and methotrexate Continue home dose prednisone 20 mg p.o. q.d. Hypertension Continue home med Diabetes mellitus Continue insulin glargine 45 units b.i.d. Mild sliding scale Hypoglycemic protocol DVT prophylaxis Lovenox 40 mg subQ Subjective Date/time seen: 10/06/24 16:08 Interval history: Comfortable at bedside now on room air Review of Systems Review of Systems: A 10 system review of systems was completed on the patient and is negative except for what is stated in the HPI. Nursing and ancillary documentation was reviewed. Exam Narrative: Differential diagnosis includes pulmonary embolism, upper respiratory infection, influenza, COVID, RSV, Const: Other: GENERAL: awake, alert, oriented, obese, mild dyspnea noted HEAD: Normocephalic, atraumatic. NECK: Supple. No adenopathy, no masses. RESPIRATORY: Airway patent, respirations mildly labored. Clear to auscultation bilaterally, no rales, no rhonchi, no wheezing at time of examination. CARDIOVASCULAR: Tachycardia without murmurs, rubs, or gallops. Peripheral pulses 2+ and equal bilaterally, bilateral lower extremity edema that patient reports is baseline ABDOMINAL: Soft, nontender, nondistended, Normoactive BS. MUSCULOSKELETAL: Moves all extremities. Strength/ROM intact without gross deformities. Ambulatory with steady gait SKIN: Warm, dry, pallor. Chronic erythema lower extremities (vasculitis/PVD) NEURO: A&O X3. Speech clear. Cranial nerves II-XII grossly intact, No ataxic movements. PSYCHIATRIC: Appropriate mood and affect. Normal interaction. Objective Data Vital Signs Vital Signs: Vital Signs - 24 hr 10/05/24 16:18 10/05/24 16:41 10/05/24 18:00 Temperature 98.4 F Pulse Rate 112 H 105 H 103 H Respiratory Rate 22 H Blood Pressure 176/101 H Pulse Oximetry 98 Oxygen Delivery Fraction of Inspired Oxygen 10/05/24 19:56 10/05/24 20:00 10/05/24 20:08 Temperature 97.7 F Pulse Rate 94 98 99 Respiratory Rate 18 22 H Blood Pressure 167/98 H Pulse Oximetry 97 96 Oxygen Delivery Room Air Fraction of Inspired Oxygen 10/05/24 20:27 10/05/24 20:34 10/05/24 20:34 Temperature Pulse Rate 103 H 89 Respiratory Rate 20 Blood Pressure Pulse Oximetry 94 Oxygen Delivery Room Air Fraction of Inspired Oxygen 10/05/24 20:40 10/05/24 22:00 10/06/24 00:00 Temperature Pulse Rate 95 93 115 H Respiratory Rate 20 Blood Pressure Pulse Oximetry Oxygen Delivery Fraction of Inspired Oxygen 10/06/24 00:35 10/06/24 01:03 10/06/24 01:04 Temperature 97.6 F Pulse Rate 99 98 99 Respiratory Rate 22 H 22 H Blood Pressure 172/109 H Pulse Oximetry 98 98 Oxygen Delivery Room Air Fraction of Inspired Oxygen 28 10/06/24 02:00 10/06/24 02:13 10/06/24 02:20 Temperature Pulse Rate 97 105 H 93 Respiratory Rate 18 18 Blood Pressure Pulse Oximetry Oxygen Delivery Fraction of Inspired Oxygen 10/06/24 03:52 10/06/24 03:53 10/06/24 04:00 Temperature 98.2 F Pulse Rate 86 93 87 Respiratory Rate 20 18 Blood Pressure 145/74 H Pulse Oximetry 100 98 Oxygen Delivery Autopap Fraction of Inspired Oxygen 10/06/24 06:00 10/06/24 07:56 10/06/24 07:56 Temperature Pulse Rate 108 H 100 Respiratory Rate 18 Blood Pressure Pulse Oximetry 95 Oxygen Delivery Room Air Fraction of Inspired Oxygen 10/06/24 07:57 10/06/24 08:10 10/06/24 11:51 Temperature 98.4 F 97.7 F Pulse Rate 85 103 H 101 H Respiratory Rate 20 18 20 Blood Pressure 142/72 H 183/91 H Pulse Oximetry 100 97 Oxygen Delivery Fraction of Inspired Oxygen 10/06/24 14:20 10/06/24 14:34 10/06/24 15:53 Temperature 97.8 F Pulse Rate 104 H 106 H 113 H Respiratory Rate 18 18 20 Blood Pressure 171/89 H Pulse Oximetry 93 Oxygen Delivery Fraction of Inspired Oxygen Intake/Output Intake/Output: Intake & Output 10/03/24 10/04/24 10/05/24 10/06/24 23:59 23:59 23:59 23:59 Intake Total 1870 2070 4146.2 2030 Output Total 800 2900 2050 500 Balance 1070 -830 2096.2 1530 Meds/Results Medications: Active Medications Generic Name Dose Route Start Last Admin Trade Name Freq PRN Reason Stop Dose Admin Acetaminophen 650 mg 10/03/24 08:20 Acetaminophen 325 Mg Tablet PO Q4H PRN Mild Pain (1-3) or Fever Acetaminophen 1,000 mg 10/03/24 21:00 10/06/24 09:22 Acetaminophen 500 Mg Tablet PO 1,000 mg Q12HR ZEE Administration Hydrocodone Bitart/Acetaminophen 1 tab 10/03/24 08:20 Hydrocodone/Acetaminophen (*Crx) 5-325 Mg Tablet PO Q4H PRN Pain Rated 4-6 Atorvastatin Calcium 20 mg 10/03/24 21:00 10/05/24 20:25 Atorvastatin 20 Mg Tablet PO 20 mg HS ZEE Administration Azithromycin 500 mg 10/06/24 09:15 10/06/24 11:53 Azithromycin 250 Mg Tablet PO 10/07/24 09:01 500 mg DAILY ZEE Administration Benzonatate 200 mg 10/06/24 13:00 10/06/24 11:01 Benzonatate 100 Mg Capsule PO 200 mg TID ZEE Administration Cefdinir 300 mg 10/06/24 09:15 10/06/24 11:53 Cefdinir 300 Mg Capsule PO 10/09/24 21:01 300 mg Q12HR ZEE Administration Cyclobenzaprine HCl 10 mg 10/03/24 21:00 10/05/24 20:26 Cyclobenzaprine Hcl 10 Mg Tablet PO 10 mg HS ZEE Administration Dextrose 12.5 gm 10/04/24 17:29 Dextrose 50% 25 Gm/50 Ml Syringe IV PUSH PRN PRN Hypoglycemia Protocol Diclofenac Sodium 75 mg 10/04/24 09:00 10/06/24 09:22 Diclofenac Sod 75 Mg Tablet.Ec PO 75 mg BID ZEE Administration Enoxaparin Sodium 40 mg 10/06/24 21:00 Enoxaparin 40 Mg/0.4 Ml Syringe SUB-Q Q12HR ZEE Famotidine 20 mg 10/03/24 21:00 10/05/24 20:26 Famotidine 20 Mg Tablet PO 20 mg HS ZEE Administration Fluticasone Propionate 1 spray 10/03/24 17:02 Fluticasone Propionate 0.05% Na Spr 16 Gm Btl (*Bkc) NASAL DAILY PRN allergy symptoms Folic Acid 1 mg 10/04/24 09:00 10/06/24 09:24 Folic Acid 1 Mg Tablet PO 1 mg DAILY ZEE Administration Gabapentin 300 mg 10/04/24 09:00 10/06/24 13:02 Gabapentin 300 Mg Capsule PO 300 mg TID ZEE Administration Glucagon 1 mg 10/04/24 17:29 Glucagon For Inj 1 Mg Vial IM PRN PRN Hypoglycemia Protocol Glucose 15 gm 10/04/24 17:29 Glucose Oral Gel 15 Gm Of Glucse In 37.5 Gm Tube PO PRN PRN Hypoglycemia Protocol Guaifenesin/Dextromethorphan 1 tab 10/06/24 21:00 Guaifenesin 600 Mg/Dextromethorphan 30 Mg Sr Tab 12 Hr PO Q12HR ZEE Sodium Chloride 1,000 mls @ 75 mls/hr 10/04/24 14:55 10/06/24 11:03 Normal Saline Iv IV CONT 75 mls/hr .[id number] ZEE Administration Dextrose 1,000 mls @ 100 mls/hr 10/04/24 17:29 Dextrose 5% 1,000 Ml IVPB PRN PRN Hypoglycemia Protocol Insulin Aspart 4 - 8 units 10/04/24 17:40 10/06/24 13:00 Insulin Aspart (*Bkc) 100 Units/Ml SUB-Q Not Given TIDWM [facility] Protocol Insulin Aspart 9 units 10/05/24 08:00 10/06/24 13:03 Insulin Aspart (*Bkc) 100 Units/Ml 0.067 units/kg (9 units) 9 units SUB-Q Administration TIDWM [facility] Insulin Glargine 45 units 10/05/24 09:00 10/06/24 09:29 Insulin Glargine (*Bkc) 100 Units/Ml SUB-Q 45 units Q12H ZEE Administration Levalbuterol HCl 1.25 mg 10/03/24 20:00 10/06/24 14:20 Levalbuterol Neb 1.25 Mg/3 Ml INHALATION 1.25 mg Q6HRT ZEE Administration Lisinopril 20 mg 10/04/24 09:00 10/06/24 09:24 Lisinopril 20 Mg Tablet PO 20 mg DAILY ZEE Administration Loratadine 10 mg 10/04/24 09:00 10/06/24 09:23 Loratadine 10 Mg Tablet PO 10 mg DAILY ZEE Administration Magnesium Oxide 400 mg 10/04/24 09:00 10/06/24 09:22 Magnesium Oxide 400 Mg Tablet PO 400 mg DAILY [facility] Administration Methotrexate 12.5 mg 10/06/24 09:00 Methotrexate 2.5 Mg Tab (*Chemo) PO Th@0900 [facility] Metoprolol Tartrate 5 mg 10/04/24 20:27 10/06/24 01:03 Metoprolol Tartrate Inj 5 Mg/5 Ml Vial IV PUSH 5 mg Q4H PRN Administration SBP greater than 160 Montelukast Sodium 10 mg 10/03/24 21:00 10/05/24 20:26 Montelukast Sodium 10 Mg Tablet PO 10 mg HS [facility] Administration Ondansetron HCl 4 mg 10/03/24 12:14 10/03/24 18:35 Ondansetron Inj 4 Mg/2 Ml Vial IV PUSH 4 mg Q4H PRN Administration Nausea And Vomiting Oseltamivir Phosphate 75 mg 10/03/24 21:00 10/06/24 09:23 Oseltamivir Phosphate 75 Mg Capsule PO 10/08/24 20:59 75 mg Q12HR ZEE Administration Pantoprazole Sodium 40 mg 10/04/24 09:00 10/06/24 09:24 Pantoprazole 40 Mg Tablet PO 40 mg DAILY ZEE Administration Prednisone 40 mg 10/04/24 08:00 10/06/24 11:00 Prednisone 20 Mg Tablet PO 40 mg DAILY@0800 ZEE Administration Venlafaxine HCl 150 mg 10/03/24 18:00 10/05/24 17:31 Venlafaxine Hcl Xr 75 Mg Cap.Er.24h PO 150 mg QPM ZEE Administration Radiology Results: ITS Impressions Chest CTA 10/03/24 06:48 Impression: No evidence of pulmonary embolus, aortic dissection, or aortic aneurysm. Interval development of multiple focal, predominantly peripheral areas of groundglass opacity and focal consolidation. Findings suggest infectious/inflammatory process, including possibility of Covid 19 pneumonia. Clinical correlation required. Diffuse hepatic steatosis. Chest X-Ray 10/03/24 07:36 Impression: No acute abnormality. Labs Labs: Laboratory Results - last 24 hr 10/05/24 10/06/24 10/06/24 20:10 05:13 07:36 WBC 11.2 H RBC 4.06 L Hgb 11.9 L Hct 37.7 MCV 92.9 MCH 29.3 MCHC 31.6 L RDW 16.1 H Plt Count 314 MPV 10.0 Immature Gran % (Auto) 1.3 H Neut % (Auto) 64.4 Lymph % (Auto) 24.3 Creek % (Auto) 9.3 H Eos % (Auto) 0.4 Baso % (Auto) 0.3 Lymph # (Auto) 2.71 Creek # (Auto) 1.0 H Eos # (Auto) 0.1 Baso # (Auto) 0.0 Abs Immat Gran (auto) 0.15 H Absolute Neuts (auto) 7.2 H Absolute Nucleated RBC 0.000 Nucleated RBC % 0.0 Sodium 136 L Potassium 4.0 Chloride 102 Carbon Dioxide 25 Anion Gap 9 BUN 10 Creatinine 0.47 L Estim Creat Clear Calc 176 Estimated GFR > 60 Glucose 102 POC Capillary Glucose 286 H 88 Lactic Acid 1.5 Calcium 8.9 Magnesium 2.0 Total Bilirubin 0.5 AST 28 ALT 68 H Alkaline Phosphatase 48 Total Protein 7.0 Albumin 3.9 10/06/24 10/06/24 11:26 15:31 WBC RBC Hgb Hct MCV MCH MCHC RDW Plt Count MPV Immature Gran % (Auto) Neut % (Auto) Lymph % (Auto) Creek % (Auto) Eos % (Auto) Baso % (Auto) Lymph # (Auto) Creek # (Auto) Eos # (Auto) Baso # (Auto) Abs Immat Gran (auto) Absolute Neuts (auto) Absolute Nucleated RBC Nucleated RBC % Sodium Potassium Chloride Carbon Dioxide Anion Gap BUN Creatinine Estim Creat Clear Calc Estimated GFR Glucose POC Capillary Glucose 125 H 235 H Lactic Acid Calcium Magnesium Total Bilirubin AST ALT Alkaline Phosphatase Total Protein Albumin Quality VTE Prophylaxis VTE prophylaxis: pharmacologic ordered
[2024-10-06] MEDS: VENLAFAXINE HCL XR 75 MG CAP.ER.24H 150 MG PO (17:20)
[2024-10-06] MEDS: INSULIN ASPART (*BKC) 100 UNITS/ML SUB-Q (17:27)
[2024-10-06 20:40] LABS: Glucose Point of Care 379 mg/dl (65-105)
[2024-10-06] MEDS: ATORVASTATIN 20 MG TABLET PO (20:48)
[2024-10-06] MEDS: guaiFENesin 600 MG/DEXTROMETHORPHAN 30 MG SR TAB 12 HR 1 TAB PO (20:48)
[2024-10-06] MEDS: CYCLOBENZAPRINE HCL 10 MG TABLET PO (20:48)
[2024-10-06] MEDS: MONTELUKAST SODIUM 10 MG TABLET PO (20:48)
[2024-10-06] MEDS: ENOXAPARIN 40 MG/0.4 ML SYRINGE SUB-Q (20:49)
[2024-10-06] MEDS: FAMOTIDINE 20 MG TABLET PO (20:49)
[2024-10-06] MEDS: hydrALAZINE HCL 20 MG/ML VIAL 5 MG IV PUSH (22:59)
[2024-10-07] VITALS (20 sets, daily range): BP systolic 142–193; BP diastolic 78–126; PULSE 80–114; RESP 17–20; TEMP 35.7–36.4; O2SAT 94–100
[2024-10-07] MEDS: LEVALBUTEROL NEB 1.25 MG/3 ML INHALATION ×4 (01:49→20:03)
[2024-10-07] MEDS: hydrALAZINE HCL 20 MG/ML VIAL 10 MG IV PUSH (01:59)
--- NOTE | 2024-10-07 03:56 | PC.NURSE ---
Addendum entered by Bhavana Beyer RN 10/07/24 07:45: I told Bhavana LEWIS verbally during report that the prn metoprolol was given at 0643 and that the pt's BP was 182/100. Addendum entered by Bhavana Beyer RN 10/07/24 06:57: At 0548 pt's blood pressure was 176/100. I notified Bertha Ramirez the collection manager provider. She said she would get back to me soon. She was on the floor and talked to me 0635 and said to give the prn metoprolol again. I got the pt's blood pressure again at 0643 to be 182/100 pulse 107, at that time I also gave the prn metoprolol. James said she would notify the on coming provider. Original Note: Got report that pt received prn metoprolol at 1723 in IMU before being down graded to 3MS. At 2030 pt's Blood pressure was 190/88. The pt reported no pain and was not exhibiting any symptoms of hypertension. I called Salima Lara NP who was collection manager. I informed her of the pt's blood pressure and told her that the pt has an order for 5mg metoprolol IV prn for SBP above 160 q4HR but it has not been 4hr since her last dose. Salima Lara said to give the prn dose of metoprolol as soon as she is able to have it again. At 2121 the pt's blood pressure was 186/108. The patient received the prn 5mg of metoprolol IV at 2138. At 2247 the pt's blood pressure was 172/106. I again called Salima Lara NP and informed her of the new blood pressure. Salima Lara gave an order for 5mg hydralazine IV once which I gave at 2259. At 0020 the pt's blood pressure was 182/108. I called Bertha CHUN who was the collection manager provider. She asked that we take the blood pressure again with another cuff to ensure that was a correct reading and call her back. chimney construction supervisor Radha assisted me in taking the pt's blood pressure with another cuff and using a doppler. The blood pressure was then read as 193/126 at 0130. Bertha Ramirez was informed of that blood pressure and gave an order for 10mg hydralazine IV which I gave at 0159. At 0303 pt's blood pressure was 144/78.
[2024-10-07 06:22] LABS: Basophils Absolute Auto 0.1 K/mm3 (0.0-0.1); Basophils Percent Auto 0.5 % (0.2-1.2); Eosinophils Percent Auto 0.1 % (0-4.4); Hematocrit 35.2 % (37.0-47.0); Hemoglobin 11.1 g/dL (12.0-15.0); Immature Granulocyte Absolute 0.24 K/mm3 (0.00-0.031); Lymphocytes Absolute Auto 2.42 K/mm3 (0.9-3.2); Lymphocytes Percent Auto 20.1 % (18.3-44.2); Mean Corpuscular HGB Conc 31.5 g/dl (32-36); Mean Corpuscular Volume 91.9 fl (80-100); Mean Platelet Volume 9.7 fl (7.4-10.4); Monocytes Percent Auto 8.3 % (2.6-8.5); Neutrophils Absolute Auto 8.3 K/mm3 (1.3-6.7); Nucleated Red Blood Cells Perc 0.2 % (0.0-0.2); Platelet Count Result 314 k/mm3 (150-375); Red Blood Count 3.83 M/mm3 (4.2-5.4); Red Cell Distribution Width 16.5 % (11.5-14.5)
[2024-10-07 06:33] LABS: Lactic Acid Reflex 2.2 mmol/L (0.7-2.0)
[2024-10-07 06:38] LABS: Alanine Aminotransferase 60 U/L (6-35); Albumin Level 3.9 g/dL (3.5-5.1); Alkaline Phosphatase 55 U/L (38-126); Anion Gap 9 mmol/L (4-12); Aspartate Amino Transferase 23 U/L (14-36); Bilirubin,Total 0.4 mg/dL (0.2-1.3); Blood Urea Nitrogen 8 mg/dL (7-17); Calcium 9.1 mg/dL (8.4-10.2); Carbon Dioxide 29 mmol/L (22-30); Chloride 100 mmol/L (98-107); Estimated CRCL calculation 168 ml/min; Estimated Glomerular Filt Rate > 60; Glucose 182 mg/dL (65-110); Magnesium 1.7 mg/dL (1.6-2.3); Potassium 3.5 mmol/L (3.4-5.0); Sodium 138 mmol/L (137-145)
[2024-10-07] MEDS: METOPROLOL TARTRATE INJ 5 MG/5 ML VIAL IV PUSH (06:41)
[2024-10-07 07:57] LABS: Glucose Point of Care 151 mg/dl (65-105)
[2024-10-07 09:20] LABS: Reflex Lactic Acid Yes or No Add Lactic
[2024-10-07] MEDS: AZITHROMYCIN 250 MG TABLET 500 MG PO (09:29)
[2024-10-07] MEDS: PANTOPRAZOLE 40 MG TABLET PO (09:29)
[2024-10-07] MEDS: LORATADINE 10 MG TABLET PO (09:29)
[2024-10-07] MEDS: guaiFENesin 600 MG/DEXTROMETHORPHAN 30 MG SR TAB 12 HR 1 TAB PO ×2 (09:29→22:13)
[2024-10-07] MEDS: DICLOFENAC SOD 75 MG TABLET.EC PO ×2 (09:29→17:22)
[2024-10-07] MEDS: BENZONATATE 100 MG CAPSULE 200 MG PO ×3 (09:30→17:22)
[2024-10-07] MEDS: ACETAMINOPHEN 500 MG TABLET 1000 MG PO ×2 (09:30→22:16)
[2024-10-07] MEDS: OSELTAMIVIR PHOSPHATE 75 MG CAPSULE PO ×2 (09:30→22:15)
[2024-10-07] MEDS: MAGNESIUM OXIDE 400 MG TABLET PO (09:30)
[2024-10-07] MEDS: lisinopriL 20 MG TABLET PO (09:31)
[2024-10-07] MEDS: CEFDINIR 300 MG CAPSULE PO ×2 (09:31→22:14)
[2024-10-07] MEDS: FOLIC ACID 1 MG TABLET PO (09:31)
[2024-10-07] MEDS: GABAPENTIN 300 MG CAPSULE PO ×3 (09:31→17:21)
[2024-10-07] MEDS: ENOXAPARIN 40 MG/0.4 ML SYRINGE SUB-Q ×2 (09:31→22:13)
[2024-10-07] MEDS: INSULIN GLARGINE (*BKC) 100 UNITS/ML 45 UNITS SUB-Q ×2 (09:32→22:18)
[2024-10-07] MEDS: INSULIN ASPART (*BKC) 100 UNITS/ML 9 UNITS SUB-Q ×3 (09:34→17:22)
--- NOTE | 2024-10-07 10:05 | P.PNPL_ITS ---
Progress Note: A&P Assessment and Plan (1) JEREMY on CPAP: Code(s): G47.33 - Obstructive sleep apnea (adult) (pediatric) Status: Chronic (2) Pneumonia: Qualifiers: Laterality: unspecified laterality Lung location: unspecified part of lung Pneumonia type: due to unspecified organism Qualified Code(s): J18.9 - Pneumonia, unspecified organism Code(s): J18.9 - Pneumonia, unspecified organism Status: Acute (3) Acute hypoxic respiratory failure: Code(s): J96.01 - Acute respiratory failure with hypoxia Status: Acute Assessment and Plan: A 49-year-old morbidly obese female presents with sleep-disordered breathing managed by auto CPAP, autoimmune disease on chronic immunosuppressive therapy, recent bilateral pneumonia requiring mechanical ventilation and a 7-day ICU stay last month, and insulin-dependent diabetes mellitus. She reports a few days of mild cough and shortness of breath. A CTA revealed new scattered bilateral infiltrates, with no evidence of pulmonary embolism or pleural effusions. She tested positive for influenza A and is currently being treated with Tamiflu and antibiotics for a possible bacterial coinfection. Over the last 48 hours her oxygen requirements have significantly decreased and is currently breathing room air. Cough also improved over the last 24 hours. Physical exam showed clear lungs bilaterally. Plan: The patient is cleared for discharge home from a respiratory perspective. She should continue using her CPAP device for sleep apnea. For cough management, she can continue taking Mucinex DM and Tessalon Perles as needed. It is important for her to complete the 5-day course of Tamiflu. The patient intends to follow up with her primary care provider and inspectors and regulatory officers regarding her autoimmune disease, for which she has been on a relatively high dose of steroids. I will conclude my involvement, but please feel free to contact me with any questions. (4) Morbidly obese: Code(s): E66.01 - Morbid (severe) obesity due to excess calories Status: Chronic (5) Diabetes mellitus, insulin dependent (IDDM), uncontrolled: Status: Acute (6) Influenza: Code(s): J11.1 - Influenza due to unidentified influenza virus with other respiratory manifestations Status: Acute (7) Vasculitis: Code(s): I77.6 - Arteritis, unspecified Status: Acute Subjective Date/time seen: 10/07/24 10:05 Interval history: Patient doing better. Cough much improved over the last 24 hours. No other respiratory symptoms. Using home CPAP. Eager to go home. Review of Systems Review of Systems: All systems reviewed & are unremarkable except as noted in HPI and below (HPI and below) Exam Narrative: GENERAL APPEARANCE: Well developed, well nourished, alert and cooperative, morbidly obese and appears to be in no acute distress while breathing ambient air SKIN: Inspection of the skin reveals no rashes, ulcerations or petechiae. HEENT: Sclerae anicteric and conjunctivae pink and moist. Extraocular movements were intact and pupils were equal, round. The oral mucosa, hard and soft palate, tongue and posterior pharynx were normal. NECK: Supple. There was no thyroid enlargement, and no tenderness, or masses were felt. CHEST: Normal AP diameter and normal contour without any kyphoscoliosis. LUNGS: Auscultation of the lungs revealed normal breath sounds without any other adventitious sounds or rubs. CARDIAC: There was a regular rate and rhythm without any murmurs, gallops, rubs. ABDOMEN: Soft and nontender with normal bowel sounds. There was no organomegaly. No paradoxical abdominal movements in supine position. LYMPH NODES: No lymphadenopathy was appreciated in the neck. EXTREMITIES: No cyanosis, clubbing or edema. NEUROLOGIC: Alert and oriented x 3. Normal affect. Objective Data Vital Signs Vital Signs: Vital Signs - 24 hr 10/06/24 11:51 10/06/24 12:00 10/06/24 14:00 Temperature 36.5 C Pulse Rate 101 H 104 H 112 H Respiratory Rate 20 Blood Pressure 183/91 H Pulse Oximetry 97 Oxygen Delivery 10/06/24 14:20 10/06/24 14:34 10/06/24 15:53 Temperature 36.6 C Pulse Rate 104 H 106 H 113 H Respiratory Rate 18 18 20 Blood Pressure 171/89 H Pulse Oximetry 93 Oxygen Delivery 10/06/24 16:00 10/06/24 17:23 10/06/24 18:00 Temperature Pulse Rate 115 H 115 H 115 H Respiratory Rate Blood Pressure Pulse Oximetry Oxygen Delivery 10/06/24 20:05 10/06/24 20:08 10/06/24 20:18 Temperature Pulse Rate 114 H 111 H Respiratory Rate 20 20 Blood Pressure Pulse Oximetry 99 Oxygen Delivery Room Air 10/06/24 20:30 10/06/24 21:22 10/06/24 21:38 Temperature 36.4 C L Pulse Rate 114 H 120 H Respiratory Rate 20 Blood Pressure 190/88 H 186/108 H Pulse Oximetry 99 Oxygen Delivery 10/06/24 22:47 10/07/24 00:20 10/07/24 01:02 Temperature Pulse Rate Respiratory Rate Blood Pressure 172/106 H 182/108 H 178/104 H Pulse Oximetry Oxygen Delivery 10/07/24 01:30 10/07/24 01:35 10/07/24 01:50 Temperature Pulse Rate 99 Respiratory Rate 20 Blood Pressure 193/126 H 193/126 H Pulse Oximetry Oxygen Delivery 10/07/24 01:50 10/07/24 03:03 10/07/24 05:48 Temperature 36.4 C Pulse Rate 99 102 H 98 Respiratory Rate 20 Blood Pressure 144/78 H 176/100 H Pulse Oximetry 97 99 Oxygen Delivery 10/07/24 06:41 10/07/24 06:43 10/07/24 07:45 Temperature 36.3 C L Pulse Rate 107 H 91 Respiratory Rate 17 Blood Pressure 182/100 H 188/102 H Pulse Oximetry 99 Oxygen Delivery 10/07/24 08:26 Temperature Pulse Rate 99 Respiratory Rate 20 Blood Pressure Pulse Oximetry Oxygen Delivery Intake/Output Intake/Output: Intake & Output 10/04/24 10/05/24 10/06/24 10/07/24 23:59 23:59 23:59 23:59 Intake Total 2070 4146.2 2890 350 Output Total 2900 2050 850 Balance -830 2096.2 2040 350 Meds/Results Medications: Active Medications Generic Name Dose Route Start Last Admin Trade Name David PRN Reason Stop Dose Admin Acetaminophen 650 mg 10/03/24 08:20 Acetaminophen 325 Mg Tablet PO Q4H PRN Mild Pain (1-3) or Fever Acetaminophen 1,000 mg 10/03/24 21:00 10/07/24 09:30 Acetaminophen 500 Mg Tablet PO 1,000 mg Q12HR ZEE Administration Hydrocodone Bitart/Acetaminophen 1 tab 10/03/24 08:20 Hydrocodone/Acetaminophen (*Crx) 5-325 Mg Tablet PO Q4H PRN Pain Rated 4-6 Atorvastatin Calcium 20 mg 10/03/24 21:00 10/06/24 20:48 Atorvastatin 20 Mg Tablet PO 20 mg HS ZEE Administration Benzonatate 200 mg 10/06/24 13:00 10/07/24 09:30 Benzonatate 100 Mg Capsule PO 200 mg TID ZEE Administration Cefdinir 300 mg 10/06/24 09:15 10/07/24 09:31 Cefdinir 300 Mg Capsule PO 10/09/24 21:01 300 mg Q12HR ZEE Administration Cyclobenzaprine HCl 10 mg 10/03/24 21:00 10/06/24 20:48 Cyclobenzaprine Hcl 10 Mg Tablet PO 10 mg HS ZEE Administration Dextrose 12.5 gm 10/04/24 17:29 Dextrose 50% 25 Gm/50 Ml Syringe IV PUSH PRN PRN Hypoglycemia Protocol Diclofenac Sodium 75 mg 10/04/24 09:00 10/07/24 09:29 Diclofenac Sod 75 Mg Tablet.Ec PO 75 mg BID ZEE Administration Enoxaparin Sodium 40 mg 10/06/24 21:00 10/07/24 09:31 Enoxaparin 40 Mg/0.4 Ml Syringe SUB-Q 40 mg Q12HR ZEE Administration Famotidine 20 mg 10/03/24 21:00 10/06/24 20:49 Famotidine 20 Mg Tablet PO 20 mg HS ZEE Administration Fluticasone Propionate 1 spray 10/03/24 17:02 Fluticasone Propionate 0.05% Na Spr 16 Gm Btl (*Bkc) NASAL DAILY PRN allergy symptoms Folic Acid 1 mg 10/04/24 09:00 10/07/24 09:31 Folic Acid 1 Mg Tablet PO 1 mg DAILY ZEE Administration Gabapentin 300 mg 10/04/24 09:00 10/07/24 09:31 Gabapentin 300 Mg Capsule PO 300 mg TID ZEE Administration Glucagon 1 mg 10/04/24 17:29 Glucagon For Inj 1 Mg Vial IM PRN PRN Hypoglycemia Protocol Glucose 15 gm 10/04/24 17:29 Glucose Oral Gel 15 Gm Of Glucse In 37.5 Gm Tube PO PRN PRN Hypoglycemia Protocol Guaifenesin/Dextromethorphan 1 tab 10/06/24 21:00 10/07/24 09:29 Guaifenesin 600 Mg/Dextromethorphan 30 Mg Sr Tab 12 Hr PO 1 tab Q12HR ZEE Administration Dextrose 1,000 mls @ 100 mls/hr 10/04/24 17:29 Dextrose 5% 1,000 Ml IVPB PRN PRN Hypoglycemia Protocol Insulin Aspart 4 - 8 units 10/04/24 17:40 10/07/24 09:23 Insulin Aspart (*Bkc) 100 Units/Ml SUB-Q Not Given TIDWM [facility] Protocol Insulin Aspart 9 units 10/05/24 08:00 10/07/24 09:34 Insulin Aspart (*Bkc) 100 Units/Ml 0.067 units/kg (9 units) 9 units SUB-Q Administration TIDWM [facility] Insulin Glargine 45 units 10/05/24 09:00 10/07/24 09:32 Insulin Glargine (*Bkc) 100 Units/Ml SUB-Q 45 units Q12H ZEE Administration Levalbuterol HCl 1.25 mg 10/03/24 20:00 10/07/24 08:26 Levalbuterol Neb 1.25 Mg/3 Ml INHALATION 1.25 mg Q6HRT ZEE Administration Lisinopril 20 mg 10/04/24 09:00 10/07/24 09:31 Lisinopril 20 Mg Tablet PO 20 mg DAILY [facility] Administration Loratadine 10 mg 10/04/24 09:00 10/07/24 09:29 Loratadine 10 Mg Tablet PO 10 mg DAILY ZEE Administration Magnesium Oxide 400 mg 10/04/24 09:00 10/07/24 09:30 Magnesium Oxide 400 Mg Tablet PO 400 mg DAILY [facility] Administration Methotrexate 12.5 mg 10/06/24 09:00 10/06/24 17:54 Methotrexate 2.5 Mg Tab (*Chemo) PO Not Given Th@0900 [facility] Metoprolol Tartrate 5 mg 10/04/24 20:27 10/07/24 06:41 Metoprolol Tartrate Inj 5 Mg/5 Ml Vial IV PUSH 5 mg Q4H PRN Administration SBP greater than 160 Montelukast Sodium 10 mg 10/03/24 21:00 10/06/24 20:48 Montelukast Sodium 10 Mg Tablet PO 10 mg HS [facility] Administration Ondansetron HCl 4 mg 10/03/24 12:14 10/03/24 18:35 Ondansetron Inj 4 Mg/2 Ml Vial IV PUSH 4 mg Q4H PRN Administration Nausea And Vomiting Oseltamivir Phosphate 75 mg 10/03/24 21:00 10/07/24 09:30 Oseltamivir Phosphate 75 Mg Capsule PO 10/08/24 20:59 75 mg Q12HR ZEE Administration Pantoprazole Sodium 40 mg 10/04/24 09:00 10/07/24 09:29 Pantoprazole 40 Mg Tablet PO 40 mg DAILY ZEE Administration Venlafaxine HCl 150 mg 10/03/24 18:00 10/06/24 17:20 Venlafaxine Hcl Xr 75 Mg Cap.Er.24h PO 150 mg QPM ZEE Administration Radiology Results: ITS Impressions Chest CTA 10/03/24 06:48 Impression: No evidence of pulmonary embolus, aortic dissection, or aortic aneurysm. Interval development of multiple focal, predominantly peripheral areas of groundglass opacity and focal consolidation. Findings suggest infectious/inflammatory process, including possibility of Covid 19 pneumonia. Clinical correlation required. Diffuse hepatic steatosis. Chest X-Ray 10/07/24 06:13 IMPRESSION: 1. Mild airspace opacities at left lung base, consistent with atelectasis versus pneumonia. 2. Chronic elevation of right hemidiaphragm with mild atelectasis at right lung base. Labs Labs: Laboratory Results - last 24 hr 10/06/24 10/06/24 10/06/24 11:26 15:31 20:09 WBC RBC Hgb Hct MCV MCH MCHC RDW Plt Count MPV Immature Gran % (Auto) Neut % (Auto) Lymph % (Auto) [place] % (Auto) Eos % (Auto) Baso % (Auto) Lymph # (Auto) [place] # (Auto) Eos # (Auto) Baso # (Auto) Abs Immat Gran (auto) Absolute Neuts (auto) Absolute Nucleated RBC Nucleated RBC % Sodium Potassium Chloride Carbon Dioxide Anion Gap BUN Creatinine Estim Creat Clear Calc Estimated GFR Glucose POC Capillary Glucose 125 H 235 H 379 H Lactic Acid Calcium Magnesium Total Bilirubin AST ALT Alkaline Phosphatase Total Protein Albumin 10/07/24 10/07/24 10/07/24 06:13 07:52 09:28 WBC 12.0 H RBC 3.83 L Hgb 11.1 L Hct 35.2 L MCV 91.9 MCH 29.0 MCHC 31.5 L RDW 16.5 H Plt Count 314 MPV 9.7 Immature Gran % (Auto) 2.0 H Neut % (Auto) 69.0 Lymph % (Auto) 20.1 [place] % (Auto) 8.3 Eos % (Auto) 0.1 Baso % (Auto) 0.5 Lymph # (Auto) 2.42 [place] # (Auto) 1.0 H Eos # (Auto) 0.0 Baso # (Auto) 0.1 Abs Immat Gran (auto) 0.24 H Absolute Neuts (auto) 8.3 H Absolute Nucleated RBC 0.020 H Nucleated RBC % 0.2 Sodium 138 Potassium 3.5 Chloride 100 Carbon Dioxide 29 Anion Gap 9 BUN 8 Creatinine 0.50 L Estim Creat Clear Calc 168 Estimated GFR > 60 Glucose 182 H POC Capillary Glucose 151 H Lactic Acid 2.2 H 2.0 Calcium 9.1 Magnesium 1.7 Total Bilirubin 0.4 AST 23 ALT 60 H Alkaline Phosphatase 55 Total Protein 7.0 Albumin 3.9
[2024-10-07 12:00] LABS: Glucose Point of Care 156 mg/dl (65-105)
--- NOTE | 2024-10-07 12:33 | P.PNIM_ITS ---
Progress Note: A&P Assessment and Plan (1) Influenza: Code(s): J11.1 - Influenza due to unidentified influenza virus with other respiratory manifestations Status: Acute (2) Pneumonia: Qualifiers: Laterality: unspecified laterality Lung location: unspecified part of lung Pneumonia type: due to unspecified organism Qualified Code(s): J18.9 - Pneumonia, unspecified organism Code(s): J18.9 - Pneumonia, unspecified organism Status: Acute (3) Acute hypoxic respiratory failure: Code(s): J96.01 - Acute respiratory failure with hypoxia Status: Acute (4) Lactic acidosis: Code(s): E87.20 - Acidosis, unspecified Status: Acute (5) Diabetes mellitus, insulin dependent (IDDM), uncontrolled: Status: Acute (6) Morbidly obese: Code(s): E66.01 - Morbid (severe) obesity due to excess calories Status: Chronic (7) Hyponatremia: Code(s): E87.1 - Hypo-osmolality and hyponatremia Status: Acute Plan PNA Influenza A positive On Tamiflu Vital signs improved and stable Continue Ceftriaxone and Azithromycin monitor cultures Order nasal MRSA Recent history of intubation Comorbid condition: Obesity hypoventilation syndrome Consult pulmonology Incentive spirometry encourage oral intake Acute hypoxemic resp failure now on room air continue titrating Tachycardia Possible due to Albuterol induced Changed to Xopenex CTA negative for PE EKG showed ST No hx of A.Fib IVF and Metoprolol 6.25mg bid monitor Obstructive sleep apnea/obesity hypoventilation syndrome Autopap or home unit ordered Autoimmune condition Continue Rituxan and methotrexate Continue home dose prednisone 20 mg p.o. q.d. Hypertension with elevated blood pressure Continue home med Added isosorbide mononitrate and metorprolol Diabetes mellitus Continue insulin glargine 45 units b.i.d. Mild sliding scale Hypoglycemic protocol DVT prophylaxis Lovenox 40 mg subQ Subjective Date/time seen: 10/07/24 12:33 Interval history: Comfortable at bedside however heart still elevated adn needing IV metoprolol restarted IVF and placed her on Metoprolol 6.25mg bid po Review of Systems 2 Review of Systems: A 10 system review of systems was completed on the patient and is negative except for what is stated in the HPI. Nursing and ancillary documentation was reviewed. Exam Narrative: Differential diagnosis includes pulmonary embolism, upper respiratory infection, influenza, COVID, RSV, Const: Other: GENERAL: awake, alert, oriented, obese, mild dyspnea noted HEAD: Normocephalic, atraumatic. NECK: Supple. No adenopathy, no masses. RESPIRATORY: Airway patent, respirations mildly labored. Clear to auscultation bilaterally, no rales, no rhonchi, no wheezing at time of examination. CARDIOVASCULAR: Tachycardia without murmurs, rubs, or gallops. Peripheral pulses 2+ and equal bilaterally, bilateral lower extremity edema that patient reports is baseline ABDOMINAL: Soft, nontender, nondistended, Normoactive BS. MUSCULOSKELETAL: Moves all extremities. Strength/ROM intact without gross deformities. Ambulatory with steady gait SKIN: Warm, dry, pallor. Chronic erythema lower extremities (vasculitis/PVD) NEURO: A&O X3. Speech clear. Cranial nerves II-XII grossly intact, No ataxic movements. PSYCHIATRIC: Appropriate mood and affect. Normal interaction. Objective Data Vital Signs Vital Signs: Vital Signs - 24 hr 10/06/24 14:00 10/06/24 14:20 10/06/24 14:34 Temperature Pulse Rate 112 H 104 H 106 H Respiratory Rate 18 18 Blood Pressure Pulse Oximetry Oxygen Delivery 10/06/24 15:53 10/06/24 16:00 10/06/24 17:23 Temperature 97.8 F Pulse Rate 113 H 115 H 115 H Respiratory Rate 20 Blood Pressure 171/89 H Pulse Oximetry 93 Oxygen Delivery 10/06/24 18:00 10/06/24 20:05 10/06/24 20:08 Temperature Pulse Rate 115 H 114 H Respiratory Rate 20 Blood Pressure Pulse Oximetry 99 Oxygen Delivery Room Air 10/06/24 20:18 10/06/24 20:30 10/06/24 21:22 Temperature 97.5 F L Pulse Rate 111 H 114 H Respiratory Rate 20 20 Blood Pressure 190/88 H 186/108 H Pulse Oximetry 99 Oxygen Delivery 10/06/24 21:38 10/06/24 22:47 10/07/24 00:20 Temperature Pulse Rate 120 H Respiratory Rate Blood Pressure 172/106 H 182/108 H Pulse Oximetry Oxygen Delivery 10/07/24 01:02 10/07/24 01:30 10/07/24 01:35 Temperature Pulse Rate Respiratory Rate Blood Pressure 178/104 H 193/126 H 193/126 H Pulse Oximetry Oxygen Delivery 10/07/24 01:50 10/07/24 01:50 10/07/24 03:03 Temperature Pulse Rate 99 99 102 H Respiratory Rate 20 Blood Pressure 144/78 H Pulse Oximetry 97 Oxygen Delivery 10/07/24 05:48 10/07/24 06:41 10/07/24 06:43 Temperature 97.6 F Pulse Rate 98 107 H Respiratory Rate 20 Blood Pressure 176/100 H 182/100 H Pulse Oximetry 99 Oxygen Delivery 10/07/24 07:45 10/07/24 08:26 10/07/24 09:30 Temperature 97.3 F L Pulse Rate 91 99 Respiratory Rate 17 20 Blood Pressure 188/102 H Pulse Oximetry 99 Oxygen Delivery Room Air Intake/Output Intake/Output: Intake & Output 10/04/24 10/05/24 10/06/24 10/07/24 23:59 23:59 23:59 23:59 Intake Total 2070 4146.2 2890 590 Output Total 2900 2050 850 Balance -830 2096.2 2040 590 Meds/Results Medications: Active Medications Generic Name Dose Route Start Last Admin Trade Name Freq PRN Reason Stop Dose Admin Acetaminophen 650 mg 10/03/24 08:20 Acetaminophen 325 Mg Tablet PO Q4H PRN Mild Pain (1-3) or Fever Acetaminophen 1,000 mg 10/03/24 21:00 10/07/24 09:30 Acetaminophen 500 Mg Tablet PO 1,000 mg Q12HR ZEE Administration Hydrocodone Bitart/Acetaminophen 1 tab 10/03/24 08:20 Hydrocodone/Acetaminophen (*Crx) 5-325 Mg Tablet PO Q4H PRN Pain Rated 4-6 Atorvastatin Calcium 20 mg 10/03/24 21:00 10/06/24 20:48 Atorvastatin 20 Mg Tablet PO 20 mg HS ZEE Administration Benzonatate 200 mg 10/06/24 13:00 10/07/24 09:30 Benzonatate 100 Mg Capsule PO 200 mg TID ZEE Administration Cefdinir 300 mg 10/06/24 09:15 10/07/24 09:31 Cefdinir 300 Mg Capsule PO 10/09/24 21:01 300 mg Q12HR ZEE Administration Cyclobenzaprine HCl 10 mg 10/03/24 21:00 10/06/24 20:48 Cyclobenzaprine Hcl 10 Mg Tablet PO 10 mg HS ZEE Administration Dextrose 12.5 gm 10/04/24 17:29 Dextrose 50% 25 Gm/50 Ml Syringe IV PUSH PRN PRN Hypoglycemia Protocol Diclofenac Sodium 75 mg 10/04/24 09:00 10/07/24 09:29 Diclofenac Sod 75 Mg Tablet.Ec PO 75 mg BID ZEE Administration Enoxaparin Sodium 40 mg 10/06/24 21:00 10/07/24 09:31 Enoxaparin 40 Mg/0.4 Ml Syringe SUB-Q 40 mg Q12HR ZEE Administration Famotidine 20 mg 10/03/24 21:00 10/06/24 20:49 Famotidine 20 Mg Tablet PO 20 mg HS ZEE Administration Fluticasone Propionate 1 spray 10/03/24 17:02 Fluticasone Propionate 0.05% Na Spr 16 Gm Btl (*Bkc) NASAL DAILY PRN allergy symptoms Folic Acid 1 mg 10/04/24 09:00 10/07/24 09:31 Folic Acid 1 Mg Tablet PO 1 mg DAILY ZEE Administration Gabapentin 300 mg 10/04/24 09:00 10/07/24 09:31 Gabapentin 300 Mg Capsule PO 300 mg TID ZEE Administration Glucagon 1 mg 10/04/24 17:29 Glucagon For Inj 1 Mg Vial IM PRN PRN Hypoglycemia Protocol Glucose 15 gm 10/04/24 17:29 Glucose Oral Gel 15 Gm Of Glucse In 37.5 Gm Tube PO PRN PRN Hypoglycemia Protocol Guaifenesin/Dextromethorphan 1 tab 10/06/24 21:00 10/07/24 09:29 Guaifenesin 600 Mg/Dextromethorphan 30 Mg Sr Tab 12 Hr PO 1 tab Q12HR ZEE Administration Dextrose 1,000 mls @ 100 mls/hr 10/04/24 17:29 Dextrose 5% 1,000 Ml IVPB PRN PRN Hypoglycemia Protocol Magnesium Sulfate/Dextrose 1 gm in 100 mls @ 100 mls/hr 10/07/24 12:27 Magnesium Sulf 1 Gm/D5w 100 Ml IVPB 10/07/24 13:26 ONCE ONE Sodium Chloride 1,000 mls @ 75 mls/hr 10/07/24 12:30 Normal Saline Iv IV CONT .[id number] ZEE Insulin Aspart 4 - 8 units 10/04/24 17:40 10/07/24 12:03 Insulin Aspart (*Bkc) 100 Units/Ml SUB-Q Not Given TIDWM [facility] Protocol Insulin Aspart 9 units 10/05/24 08:00 10/07/24 09:34 Insulin Aspart (*Bkc) 100 Units/Ml 0.067 units/kg (9 units) 9 units SUB-Q Administration TIDWM [facility] Insulin Glargine 45 units 10/05/24 09:00 10/07/24 09:32 Insulin Glargine (*Bkc) 100 Units/Ml SUB-Q 45 units Q12H ZEE Administration Isosorbide Dinitrate 5 mg 10/07/24 13:00 Isosorbide Dinitrate 5 Mg Tablet PO TID ZEE Levalbuterol HCl 1.25 mg 10/03/24 20:00 10/07/24 08:26 Levalbuterol Neb 1.25 Mg/3 Ml INHALATION 1.25 mg Q6HRT ZEE Administration Lisinopril 20 mg 10/04/24 09:00 10/07/24 09:31 Lisinopril 20 Mg Tablet PO 20 mg DAILY ZEE Administration Loratadine 10 mg 10/04/24 09:00 10/07/24 09:29 Loratadine 10 Mg Tablet PO 10 mg DAILY ZEE Administration Magnesium Oxide 400 mg 10/04/24 09:00 10/07/24 09:30 Magnesium Oxide 400 Mg Tablet PO 400 mg DAILY [facility] Administration Methotrexate 12.5 mg 10/06/24 09:00 10/06/24 17:54 Methotrexate 2.5 Mg Tab (*Chemo) PO Not Given Th@0900 [facility] Metoprolol Tartrate 6.25 mg 10/07/24 12:35 Metoprolol Tartrate 6.25 Mg Tablet PO Q12HR [facility] Montelukast Sodium 10 mg 10/03/24 21:00 10/06/24 20:48 Montelukast Sodium 10 Mg Tablet PO 10 mg HS [facility] Administration Ondansetron HCl 4 mg 10/03/24 12:14 10/03/24 18:35 Ondansetron Inj 4 Mg/2 Ml Vial IV PUSH 4 mg Q4H PRN Administration Nausea And Vomiting Oseltamivir Phosphate 75 mg 10/03/24 21:00 10/07/24 09:30 Oseltamivir Phosphate 75 Mg Capsule PO 10/08/24 20:59 75 mg Q12HR ZEE Administration Pantoprazole Sodium 40 mg 10/04/24 09:00 10/07/24 09:29 Pantoprazole 40 Mg Tablet PO 40 mg DAILY ZEE Administration Venlafaxine HCl 150 mg 10/03/24 18:00 10/06/24 17:20 Venlafaxine Hcl Xr 75 Mg Cap.Er.24h PO 150 mg QPM ZEE Administration Radiology Results: ITS Impressions Chest CTA 10/03/24 06:48 Impression: No evidence of pulmonary embolus, aortic dissection, or aortic aneurysm. Interval development of multiple focal, predominantly peripheral areas of jazmine undglass opacity and focal consolidation. Findings suggest infectious/inflammatory process, including possibility of Covid 19 pneumonia. Clinical correlation required. Diffuse hepatic steatosis. Chest X-Ray 10/07/24 06:13 IMPRESSION: 1. Mild airspace opacities at left lung base, consistent with atelectasis versus pneumonia. 2. Chronic elevation of right hemidiaphragm with mild atelectasis at right lung base. Labs Labs: Laboratory Results - last 24 hr 10/06/24 10/06/24 10/07/24 15:31 20:09 06:13 WBC 12.0 H RBC 3.83 L Hgb 11.1 L Hct 35.2 L MCV 91.9 MCH 29.0 MCHC 31.5 L RDW 16.5 H Plt Count 314 MPV 9.7 Immature Gran % (Auto) 2.0 H Neut % (Auto) 69.0 Lymph % (Auto) 20.1 [place] % (Auto) 8.3 Eos % (Auto) 0.1 Baso % (Auto) 0.5 Lymph # (Auto) 2.42 [place] # (Auto) 1.0 H Eos # (Auto) 0.0 Baso # (Auto) 0.1 Abs Immat Gran (auto) 0.24 H Absolute Neuts (auto) 8.3 H Absolute Nucleated RBC 0.020 H Nucleated RBC % 0.2 Sodium 138 Potassium 3.5 Chloride 100 Carbon Dioxide 29 Anion Gap 9 BUN 8 Creatinine 0.50 L Estim Creat Clear Calc 168 Estimated GFR > 60 Glucose 182 H POC Capillary Glucose 235 H 379 H Lactic Acid 2.2 H Calcium 9.1 Magnesium 1.7 Total Bilirubin 0.4 AST 23 ALT 60 H Alkaline Phosphatase 55 Total Protein 7.0 Albumin 3.9 10/07/24 10/07/24 10/07/24 07:52 09:28 11:47 WBC RBC Hgb Hct MCV MCH MCHC RDW Plt Count MPV Immature Gran % (Auto) Neut % (Auto) Lymph % (Auto) [place] % (Auto) Eos % (Auto) Baso % (Auto) Lymph # (Auto) [place] # (Auto) Eos # (Auto) Baso # (Auto) Abs Immat Gran (auto) Absolute Neuts (auto) Absolute Nucleated RBC Nucleated RBC % Sodium Potassium Chloride Carbon Dioxide Anion Gap BUN Creatinine Estim Creat Clear Calc Estimated GFR Glucose POC Capillary Glucose 151 H 156 H Lactic Acid 2.0 Calcium Magnesium Total Bilirubin AST ALT Alkaline Phosphatase Total Protein Albumin Quality VTE Prophylaxis VTE prophylaxis: pharmacologic ordered
[2024-10-07] MEDS: SODIUM CHLORIDE 0.9% IV 1,000 ML 75 ML IV CONT (13:09)
[2024-10-07] MEDS: MAGNESIUM SULF 1 GM/D5W 100 ML 1 GM/100 ML BAG IVPB (13:09)
[2024-10-07] MEDS: METOPROLOL TARTRATE 6.25 MG TABLET PO ×2 (13:12→22:13)
[2024-10-07] MEDS: ISOSORBIDE DINITRATE 5 MG TABLET PO ×2 (13:12→17:21)
[2024-10-07 17:08] LABS: Glucose Point of Care 147 mg/dl (65-105)
[2024-10-07] MEDS: VENLAFAXINE HCL XR 75 MG CAP.ER.24H 150 MG PO (17:24)
[2024-10-07 21:34] LABS: Glucose Point of Care 125 mg/dl (65-105)
[2024-10-07] MEDS: ATORVASTATIN 20 MG TABLET PO (22:15)
[2024-10-07] MEDS: CYCLOBENZAPRINE HCL 10 MG TABLET PO (22:15)
[2024-10-07] MEDS: MONTELUKAST SODIUM 10 MG TABLET PO (22:16)
[2024-10-07] MEDS: FAMOTIDINE 20 MG TABLET PO (22:16)
[2024-10-08] MEDS: LEVALBUTEROL NEB 1.25 MG/3 ML INHALATION ×2 (02:24→09:04)
[2024-10-08 02:26] VITALS: PULSE 108; RESP 18; O2SAT 94
[2024-10-08 02:36] VITALS: PULSE 104; RESP 18
[2024-10-08 06:00] VITALS: BP 156/96; PULSE 94; RESP 18; TEMP 36.3; O2SAT 99
[2024-10-08] MEDS: SODIUM CHLORIDE 0.9% IV 1,000 ML 75 ML IV CONT (06:10)
[2024-10-08 06:41] LABS: Basophils Absolute Auto 0.1 K/mm3 (0.0-0.1); Basophils Percent Auto 0.5 % (0.2-1.2); Eosinophils Absolute Auto 0.1 K/mm3 (0-0.3); Eosinophils Percent Auto 0.9 % (0-4.4); Hematocrit 35.1 % (37.0-47.0); Hemoglobin 10.9 g/dL (12.0-15.0); Immature Granulocyte Absolute 0.18 K/mm3 (0.00-0.031); Immature Granulocyte Percent A 1.9 % (0-0.5); Lymphocytes Absolute Auto 2.64 K/mm3 (0.9-3.2); Lymphocytes Percent Auto 28.4 % (18.3-44.2); Mean Corpuscular HGB Conc 31.1 g/dl (32-36); Mean Corpuscular Hemoglobin 29.3 pg (26-34); Mean Corpuscular Volume 94.4 fl (80-100); Monocytes Absolute Auto 1.1 K/mm3 (0.1-0.6); Monocytes Percent Auto 11.4 % (2.6-8.5); Neutrophils Absolute Auto 5.3 K/mm3 (1.3-6.7); Neutrophils Percent Auto 56.9 % (45.5-73.1); Nucleated Red Blood Cells Perc 0.2 % (0.0-0.2); Platelet Count Result 305 k/mm3 (150-375); Red Blood Count 3.72 M/mm3 (4.2-5.4); Red Cell Distribution Width 16.5 % (11.5-14.5); White Blood Count 9.3 K/mm3 (4.5-10.0)
[2024-10-08 07:00] LABS: Alanine Aminotransferase 57 U/L (6-35); Albumin Level 3.7 g/dL (3.5-5.1); Alkaline Phosphatase 51 U/L (38-126); Anion Gap 8 mmol/L (4-12); Aspartate Amino Transferase 25 U/L (14-36); Bilirubin,Total 0.4 mg/dL (0.2-1.3); Blood Urea Nitrogen 9 mg/dL (7-17); Calcium 8.7 mg/dL (8.4-10.2); Carbon Dioxide 28 mmol/L (22-30); Chloride 104 mmol/L (98-107); Estimated CRCL calculation 150 ml/min; Estimated Glomerular Filt Rate > 60; Glucose 110 mg/dL (65-110); Magnesium 1.6 mg/dL (1.6-2.3); Potassium 3.4 mmol/L (3.4-5.0); Sodium 140 mmol/L (137-145)
[2024-10-08 08:09] LABS: Glucose Point of Care 106 mg/dl (65-105)
[2024-10-08 09:04] VITALS: PULSE 105; RESP 20; O2SAT 96
[2024-10-08 09:13] VITALS: PULSE 109; RESP 20
[2024-10-08] MEDS: FOLIC ACID 1 MG TABLET PO (10:23)
[2024-10-08] MEDS: CEFDINIR 300 MG CAPSULE PO (10:23)
[2024-10-08] MEDS: ACETAMINOPHEN 500 MG TABLET 1000 MG PO (10:23)
[2024-10-08] MEDS: BENZONATATE 100 MG CAPSULE 200 MG PO (10:23)
[2024-10-08] MEDS: guaiFENesin 600 MG/DEXTROMETHORPHAN 30 MG SR TAB 12 HR 1 TAB PO (10:24)
[2024-10-08] MEDS: DICLOFENAC SOD 75 MG TABLET.EC PO (10:24)
[2024-10-08] MEDS: OSELTAMIVIR PHOSPHATE 75 MG CAPSULE PO (10:24)
[2024-10-08] MEDS: ENOXAPARIN 40 MG/0.4 ML SYRINGE SUB-Q (10:24)
[2024-10-08] MEDS: GABAPENTIN 300 MG CAPSULE PO (10:24)
[2024-10-08 10:25] VITALS: PULSE 109
[2024-10-08] MEDS: METOPROLOL TARTRATE 6.25 MG TABLET PO (10:25)
[2024-10-08] MEDS: PANTOPRAZOLE 40 MG TABLET PO (10:25)
[2024-10-08] MEDS: MAGNESIUM OXIDE 400 MG TABLET PO (10:25)
[2024-10-08] MEDS: LORATADINE 10 MG TABLET PO (10:25)
[2024-10-08] MEDS: lisinopriL 20 MG TABLET PO (10:26)
[2024-10-08] MEDS: ISOSORBIDE DINITRATE 5 MG TABLET PO (10:26)
--- NOTE | 2024-10-08 11:18 | PM.DS ---
DS: Admitting Diagnosis Discharge Date 10/08/24 Admitting Diagnosis Shortness of Breath/Dyspnea DS: Discharge Diagnosis Discharge Diagnosis (1) Acute hypoxic respiratory failure: Code(s): J96.01 - Acute respiratory failure with hypoxia Status: Acute (2) Pneumonia: Qualifiers: Laterality: unspecified laterality Lung location: unspecified part of lung Pneumonia type: due to unspecified organism Qualified Code(s): J18.9 - Pneumonia, unspecified organism Code(s): J18.9 - Pneumonia, unspecified organism Status: Acute DS: Summary Hospital Course Hospital Course: 49-year-old female patient with a history of insulin-dependent type 2 diabetes, hypertension, obstructive sleep apnea, elevated cholesterol, vasculitis and autoimmune disorder who was recently admitted to the hospital about a month ago with pneumonia requiring intubation and 10 days ago for difficulty breathing and right side diaphragm paralysis(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 Fluoroscopy showed normal motion of the right diaphragm which makes paralysis unlikely. The elevated diaphragm is then related to basal atelectasis.Discharged with advise to use incentive spirometry.Today she presents to emergency department with chief complaint of shortness of breath high heart rate and blood pressure. Patient states she has been feeling short of breath since this morning reports that she noticed that her oxygen levels were lower than where it has been in her heart rates been up in the 130s and 140s. The patient reports he has also had some nausea vomiting . Pertinent ED labs: WBC 8.7, he hemoglobin 13.4, hematocrit 41.8, platelets 357, sodium 133, potassium 4.1, creatinine 0.5, GFR more than 60, glucose 251, lactic acid decreased from 2.4-1.7. Blood glass: PH 7.4, pCO2 33.8, PO2 68.2 UA no significant finding Influenza A positive. Negative for RSV and COVID CTA chest: No evidence of pulmonary embolus, aortic dissection, or aortic aneurysm.Interval development of multiple focal, predominantly peripheral areas of groundglass opacity and focal consolidation. Findings suggest infectious/inflammatory process, including possibility of Covid 19 pneumonia. Clinical correlation required.Diffuse hepatic steatosis. Patient has obesity hypoventilation syndrome, will be admitted in the setting of RSV infection. Patient denies any smoking, drinking or using illicit drugs. Of note patient was previously transferred to tertiary care hospital due to rheumatology and pulmonology coverage on 08/13/2024. during my evaluation patient has increased HR possibly due to albuterol treatment she received 2 times in ED. BP is 150's will obtain EKG and give Metoprolol 2.5mg IV x 1. Will change to Xopenex. CTA negative for PE. Patient was managed for pneumonia with Rocephin and Azithromycin, completed 5 days of Erythromycin, discharged on 9 more days of Cefdinir to complete a total of 14 days of antibiotics, given patient on immunosuppressive therapy. She was initially on oxygen but was successfully weaned off. Added Metoprolol 12.5mg bid and Isosorbide mononitrate to control her blood pressure. Discussed with patient to follow up with PCP in 3-5 days for continued blood pressure meds adjustment. F/ ith PCP in 3-5 days Time Spent with Patient Time attestation: Total time spent providing and/or coordinating discharge services: DS: Data Data Completed and Pending Labs on day of discharge: Labs from last 24 hours 10/08/24 10/08/24 10/07/24 07:59 06:03 20:20 WBC 9.3 RBC 3.72 L Hgb 10.9 L Hct 35.1 L MCV 94.4 MCH 29.3 MCHC 31.1 L RDW 16.5 H Plt Count 305 MPV 10.0 Immature Gran % (Auto) 1.9 H Neut % (Auto) 56.9 Lymph % (Auto) 28.4 [place] % (Auto) 11.4 H Eos % (Auto) 0.9 Baso % (Auto) 0.5 Lymph # (Auto) 2.64 [place] # (Auto) 1.1 H Eos # (Auto) 0.1 Baso # (Auto) 0.1 Abs Immat Gran (auto) 0.18 H Absolute Neuts (auto) 5.3 Absolute Nucleated RBC 0.020 H Nucleated RBC % 0.2 Sodium 140 Potassium 3.4 Chloride 104 Carbon Dioxide 28 Anion Gap 8 BUN 9 Creatinine 0.57 L Estim Creat Clear Calc 150 Estimated GFR > 60 Glucose 110 POC Capillary Glucose 106 H 125 H Calcium 8.7 Magnesium 1.6 Total Bilirubin 0.4 AST 25 ALT 57 H Alkaline Phosphatase 51 Total Protein 6.0 L Albumin 3.7 10/07/24 10/07/24 16:52 11:47 WBC RBC Hgb Hct MCV MCH MCHC RDW Plt Count MPV Immature Gran % (Auto) Neut % (Auto) Lymph % (Auto) [place] % (Auto) Eos % (Auto) Baso % (Auto) Lymph # (Auto) [place] # (Auto) Eos # (Auto) Baso # (Auto) Abs Immat Gran (auto) Absolute Neuts (auto) Absolute Nucleated RBC Nucleated RBC % Sodium Potassium Chloride Carbon Dioxide Anion Gap BUN Creatinine Estim Creat Clear Calc Estimated GFR Glucose POC Capillary Glucose 147 H 156 H Calcium Magnesium Total Bilirubin AST ALT Alkaline Phosphatase Total Protein Albumin Preliminary micro results at discharge 10/03/24 08:26 Blood Culture - Preliminary Blood 10/03/24 08:14 Blood Culture - Preliminary Blood Discharge Plan Discharge Attending physician on discharge: Sushant Estrada Consulting providers: Frank Buitrago Discharging Clinician: Sushant Estrada Anticipated Discharge Date/Time: 10/08/24 11:13 Patient Disposition: Home, Self-Care Activity: as tolerated Diet: regular Patient Instructions: Antibiotic Form Patient Language: [place] Citizen Stand Alone Forms: General Discharge Information Follow-up/Referrals: Michael,Lynn Burrows [Other] (F/u with PCP in 3-5 days ) Frank Buitrago MD [Physician] - (F/u with Pulm as instructed ) Discharge Medications: New isosorbide dinitrate 5 mg Tablet 5 mg PO TID 30 Days Qty: 90 0RF metoprolol tartrate 25 mg tablet 12.5 mg PO BID 30 Days Qty: 30 0RF cefdinir 300 mg Capsule 300 mg PO Q12HR 9 Days Qty: 18 0RF metoprolol tartrate 25 mg tablet 12.5 mg PO BID 30 Days Qty: 30 0RF Continued atorvastatin 20 mg tablet 20 mg PO HS Rx Instructions: Has been off since June due PCP order. montelukast 10 mg tablet 10 mg PO HS loratadine [Claritin] 10 mg Tablet 10 mg PO DAILY venlafaxine 150 mg capsule,extended release 24hr 150 mg PO QPM Lyumchato UnderwoodPen U-100 Insulin 100 unit/mL insulin pen 1 sliding scale dose SUBCUT AC Rx Instructions: For blood sugar of 150 or less administer 18 units for blood sugar per 25 points greater than 150 administer 1 unit per 25 over Mounjaro 5 mg/0.5 mL pen injector 10 mg SUBCUT WEEKLY Patient Comments: on Saturdays tramadol 50 mg Tablet 50 mg PO Q4H PRN (Reason: Severe pain) Qty: 15 0RF albuterol sulfate 2.5 mg /3 mL (0.083 %) solution for nebulization 2.5 mg inhalation DAILY PRN (Reason: Shortness Of Breath) cetirizine [All Day Allergy (cetirizine)] 10 mg Tablet 10 mg PO DAILY fluticasone propionate 50 mcg/actuation [place],Suspension 1 spray INTRANASAL DAILY PRN (Reason: allergy symptoms) ergocalciferol (vitamin D2) 50,000 unit PO .COMPLEX Patient Comments: Patient takes on Wednesdays and Sundays Rx Instructions: 50,000 units orally twice a week; prednisone 20 mg tablet 40 mg PO DAILY@0800 cyclobenzaprine 10 mg tablet 10 mg PO HS Patient Comments: patient takes in the evening lisinopril 20 mg tablet 20 mg PO DAILY methotrexate sodium 2.5 mg tablet 12.5 mg PO WEEKLY Rx Instructions: on gabapentin 300 mg capsule 300 mg PO TID diclofenac sodium 75 mg tablet,delayed release (DR/EC) 75 mg PO BID folic acid 1 mg tablet 1 mg PO DAILY hydroxychloroquine 200 mg tablet 400 mg PO HS insulin glargine [Lantus Solostar U-100 Insulin] 100 unit/mL (3 mL) insulin pen 45 unit SUBCUT BID Patient Comments: in the morning and evening pantoprazole 40 mg tablet,delayed release (DR/EC) 40 mg PO DAILY Diurex 162.5-50 mg tablet 1 tablet PO DAILY magnesium 200 mg tablet 400 mg PO DAILY potassium 99 mg tablet 99 mg PO HS famotidine [Acid Controller] 20 mg tablet 20 mg PO HS acetaminophen 500 mg Tablet 1,000 mg PO BID albuterol sulfate 90 mcg/actuation HFA aerosol inhaler 2 puff INHALATION Q8H PRN (Reason: shortness of breath or wheezing) Date of admission: 10/03/24 11:47 Primary Care Provider: Michael,Lynn Burrows Admitting Provider: Marietta Desouza Attending physician on admission: Marietta Desouza Condition: Stable
[2024-10-08 11:56] LABS: Glucose Point of Care 175 mg/dl (65-105)
== END 2024-10-08 12:55 | disposition home or self-care (01) | DRG 193 ==
LOC: ANHED 07:00 → ANHIMU 09:13 → ANH3MEDSUR 10-07 15:20 → ANHIMU 10-11 12:56
PROVIDERS: Internal Medicine; Admitting Provider Family Medicine; Emergency Provider Emergency Medicine; Visit Provider Internal Medicine
DX: J18.9 Pneumonia, unspecified organism (principal); J96.01 Acute respiratory failure with hypoxia; E66.2 Morbid (severe) obesity with alveolar hypoventilation; E87.20 Acidosis, unspecified; E87.1 Hypo-osmolality and hyponatremia; J11.1 Influenza due to unidentified influenza virus with other respiratory manifestations; B33.8 Other specified viral diseases; E11.9 Type 2 diabetes mellitus without complications; E78.5 Hyperlipidemia, unspecified; F32.A Depression, unspecified; I10 Essential (primary) hypertension; I77.6 Arteritis, unspecified; R00.0 Tachycardia, unspecified; Z79.4 Long term (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; Z99.89 Dependence on other enabling machines and devices; Z79.85 Long-term (current) use of injectable non-insulin antidiabetic drugs; Z20.822 Contact with and (suspected) exposure to COVID-19
CPT/HCPCS: 36415; 36600; 71045; 71275; 80048; 80053; 81001; 82805; 82948; 83605; 83735; 83880; 84145; 84484; 85018; 85025; 85027; 85610; 85730; 87040; 87637; 93005; 94640; 96361; 96365; 96367; 96368; 99285; A9270; G0378; J0360; J0456; J0696; J1650; J1815; J2405; J3475; J7030; J7050; J7512; Q9967

== ENCOUNTER 2024-12-08 17:44 | Emergency (ER) | payer OTHER, SELFPAY ==
[2024-12-08 17:48] VITALS: BP 160/98; PULSE 110; RESP 16; TEMP 36.6; O2SAT 98
--- OUTSIDE RECORDS SUMMARY | 2024-12-08 17:48 | XMS_ITS | Encounter Summary ---
Author Organization [facility] Address [address] [place] [address] Care Team Providers Care Aircraft Ordnance Systems Mechanic Name Role Phone Tiffany Cox MD Primary Care Provider Unavailable Kishor Saleh MD Primary Care Provider Encounter Details Date Type Department Care Team (Late st Contact Info) Description 07/03/2023 Lab Requisition [facility] - DermPath Lab [address] [place] [address] [place] [id number] [address] Social History Tobacco Use Types Packs/Day Years Used Date Smoking Tobacco: Never Assessed Comments Unknown Sex and Gender Information Value Date Recorded Sex Assigned at Not on file Legal Sex Female 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 Gender Identity Not on file Sexual Orientation Not on file documented as of this encounter Plan of Treatment Not on file documented as of this encounter Procedures Procedure Name Priority Date/Time Associated Diagnosis Comments DERMATOPATHOLOGY Routine 07/01/2023 3:33 AM MACHINE CLOTHING WORKER documented in this encounter Results * DERMATOPATHOLOGY (07/01/2023 3:33 AM MACHINE CLOTHING WORKER) Case Report Dermatopathology Report Case: [id number] Authorizing Provider: Kendrick Christopher MD Collected: 07/01/2023 03:33 AM Ordering Location: [facility] DermPath Lab Received: 07/03/2023 12:12 PM Pathologist: Bella Schwab MD Specimen: Skin, right inferior knee 3:45 PM [facility]MAT[facility] Final Diagnosis Specimen A. SKIN, right inferior knee: STASIS DERMATITIS (L30.8) DERMAL FIBROSIS (L90.5) (see microscopic description) 3:45 PM [facility]MAT[facility] Clinical History Rash; R/O Leukocytoclastic Vasculitis, Livedo Reticularis 3:45 PM [facility] Gross Description Specimen A: Received is one formalin filled container labeled with the patient's name and designated right inferior knee. The specimen consists of a punch biopsy measuring 6x5x6 mm. Jar 0. 3:45 PM [facility]ERMATOPATH[facility] Microscopic Description Specimen [...] Additional deeper sections were obtained and reviewed. 3:45 PM [facility]ERMATOPATH[facility] Disclaimer An external and internal positive and negative controls are appropriate for the histochemical, immunohistochemical and immunofluorescence stain(s) in this case (if any), except where stated explicitly. The performance characteristics of the stain(s) cited in this report were developed and its performance characteristic determined by the Dermatopathology Laboratory at [facility], directed by Dr. Arnol Perea. These tests need not be, and therefore are not, approved by the [place] Food and Drug Administration. The tests are used for clinical purposes. Billing Codes Specimen Charges Stain Charges 86453 1 44818 1 3 3:45 PM [facility]MAT[facility] Embedded Images 3 3:45 PM [facility]MAT[facility] Pathology/Cytolo gy TISSUE SPECIMEN FROM SKIN / Unknown 07/01/2023 3:33 AM MACHINE CLOTHING WORKER 07/03/2023 12:12 PM MACHINE CLOTHING WORKER us Kendrick Christopher MD LAB - PATHOLOGY/CYTOLOGY O RDERABLES Final Result DERMATOPATHOLOGY LABORATORY [facility] - Department of Dermatology [facility] Medicine [address] [place] [address], [address] [phone] documented in this encounter Visit Diagnoses Not on filedocumented in this encounter Additional Health Concerns Infection Onset Date Last Indicated Resolved Time COVID-19 Under Investigation 08/13/2024 08/13/2024 08/13/2024 11:30 PM MACHINE CLOTHING WORKER documented as of this encounter Care Teams Aircraft Ordnance Systems Mechanic Relationship Specialty Start Date End Date Tiffany Cox MD PCP - General Internal Medicine 05/16/13 07/30/23 Kishor Saleh MD [address] [place] [address] DR [address] [place] [id number] PCP - General Internal Medicine 07/31/23 documented as of this encounter
--- OUTSIDE RECORDS SUMMARY | 2024-12-08 17:48 | XMS_ITS | Clinical Summary ---
Author Organization [facility] [employer] Address [address] [place] [address] Care Team Providers Care Tax Director Name Role Phone Kishor Saleh MD Primary Care Provider Source Comments [facility] [employer],non-owned Affiliates and Associated Physician Practices is amultiple site organization consisting of ambulatory clinics and hospital sitesin [place], [place], [place] and [place]. This disclosure is being madepursuant to the Care Everywhere program and may not contain all information available regarding this patient. Last updated 18.[facility] [employer] Allergies Active Allergy Reactions Criticality Noted Date [...] document. Alwaysverify current medications with the patient. albuterol (Proventil;Sergio tolin) (2.5 MG/3ML) 0.083% nebulizer solution Inhale 2.5 (two and one-half) mg by mouth every 6 hours as needed for Shortness of Breath or Wheezing Active atorvastatin (Lipitor) 20 MG tablet Take 1 (one) tablet by mouth at bedtime Active cetirizine (ZyrTEC) 10 MG tablet Take 1 (one) tablet by mouth once daily Active cyclobenzaprin e (Flexeril) 10 MG tablet Take 1 (one) tablet by mouth nightly as needed for Muscle Spasms Active diphenhydrAMIN E (Benadryl) 50 MG capsule Take 1 (one) capsule by mouth every 6 hours as needed for Itching or Allergies Active fluticasone propionate (Flonase) 50 MCG/ACT nasal spray [place] 2 (two) sprays into each nostril once daily as needed Active hydroxychloroq uine (Plaquenil) 200 MG tablet Take 2 (two) tablets by mouth once daily Active insulin glargine (Lantus/Semgle e) 100 units/mL pen Inject 40 (forty) Units [...] by mouth at bedtime Active vitamin D, ergocalciferol , (Drisdol) 1.25 MG (48815 UT) capsule Take 1 (one) capsule by [...] (one) tablet by mouth once daily Active Active Problems Problem Noted Date Diagnosed Date Morbid obesity 08/14/2024 Uncontrolled diabetes mellitus with hyperglycemi a 08/14/2024 Acute hypoxic respiratory failure 08/13/2024 Family History Medical History Relation Name Comments [...] [facility] were you homeless or living in a halfway (including now)? 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 Gender Identity Not on file Sexual Orientation Not on file Last Filed Vital Signs Vital Sign Reading Time Taken Comments Blood Pressure 154/92 08/18/2024 12:25 PM MANGLE ROLL OPERATOR Pulse 102 08/18/2024 12:25 PM MANGLE ROLL OPERATOR Temperature 36.7 C (98.1 F) 08/18/2024 12:25 PM MANGLE ROLL OPERATOR Respiratory Rate 23 08/18/2024 12:2 5 PM MANGLE ROLL OPERATOR Oxygen Saturation 90% 08/18/2024 12: 25 PM MANGLE ROLL OPERATOR Inhaled Oxygen Concentration 21% 08/18/2024 2 :00 PM MANGLE ROLL OPERATOR Weight 132.6 kg (292 lb 4.8 oz) 08/18/2024 4:00 AM MANGLE ROLL OPERATOR Height 167.6 cm (5' 6 ) 08/13/2024 5:14 PM MANGLE ROLL OPERATOR Body Mass Index 47.18 08/13/2024 5:14 PM MANGLE ROLL OPERATOR Plan of Treatment Health Maintenance Due Date Last Done Comments COLOGUARD (AGES 45-75) - COLON CA SCREENING [address] COLONOGRAPHY - COLON CA SCREENING 1976 FIT - COLON CA SCREENING 1976 FLEX SIG - COLON CA SCREENING 1976 PAP SMEAR 1976 HIV SCREENING 1991 HEPATITIS C SCREENING 06/09/1994 DTAP/TDAP/TD VACCINES (1 - Tdap) 1995 HEPATITIS B VACCINE (1 of 3 - 19+ 3-dose series) 1995 PNEUMOCOCCAL VACCINE (1 of 2 - PCV) 1995 COVID-19 VACCINE ( season) 2024 05/13/2023, 05/23/2022, 06/20/2021, Additional history exists DEPRESSION SCREENING 08/03/2024 DIABETES - URINE PROTEIN SCREENING 08/03/2024 DIABETES RETINOPATHY SCREENING 08/14/2024 DIABETES-FOOT EXAM WITH MONOFILAMENT 08/14/2024 DIABETES-HGB A1C 02/11/2025 08/14/2024, 06/2024, 11/17/2023 INFLUENZA VACCINE (Season Ended) 2025 05/13/2023, 05/23/2022, 05/16/2021, Additional history exists DIABETES-SERUM CREATININE 08/17/20252024, 08/16/2024, 08/15/2024, Additional history [...] complete this topic MENINGOCOCCAL (Group B) VACCINE SHARED DECISION-MAKING Aged Out No longer eligible based on patient's age to complete this topic MENINGOCOCCAL GROUPS A/C/Y/W VACCINE Aged Out No longer eligible based on patient's age to complete this topic Procedures Procedure Name Priority Date/Time Associated Diagnosis Comments BASIC METABOLIC PANEL (CALCIUM TOTAL) AM Draw 08/17/2024 4:16 AM MANGLE ROLL OPERATOR HEMOGLOBIN A1C Routine 08/14/2024 3:27 AM MANGLE ROLL OPERATOR from Last 3 Months or Most Recently Relevant to Health Maintenance Results * (ABNORMAL) BASIC METABOLIC PANEL (CALCIUM TOTAL) (08/17/2024 4:16 AM MANGLE ROLL OPERATOR) Glucose 139(H) 70 - 99 mg/dL 08/17/2024 4:53 AM MANGLE ROLL OPERATOR [facility] Sodium 140 136 - 145 mmol/L 08/17/2024 4:53 AM MANGLE ROLL OPERATOR [facility] Potassium 3.5 3.5 - 5.1 mmol/L 08/17/2024 4:53 AM MANGLE ROLL OPERATOR [facility] Chloride 108(H) 98 - 107 mmol/L 08/17/2024 4:53 AM MANGLE ROLL OPERATOR [facility] CO2 24 22 - 29 mmol/L 08/17/2024 4:53 AM MANGLE ROLL OPERATOR [facility] Calcium 8.9 8.4 - 10.4 mg/dL 08/17/2024 4:53 AM [facility] Anion Gap 8 6 - 16 mmol/L 08/17/2024 4:53 AM [facility] BUN 15 5.3 - 18.7 mg/dL 08/17/2024 4:53 AM [facility] Creatinine 0.65 0.57 - 1.11 mg/dL 08/17/2024 4:53 AM [facility] eGFR by CKD-EPI >90 >=90 mL/min/1.7 3 m2 08/17/2024 4:53 AM [facility] Blood BLOOD SPECIMEN / Unknown Venipuncture / Unknown 08/17/2024 4:16 AM MANGLE ROLL OPERATOR 08/17/2024 4:[address] [facility] Alexus Ramirez MD LAB - CHEMISTRY ORDERABLES Final Result [facility] [address] [place] [address] * (ABNORMAL) HEMOGLOBIN A1C (08/14/2024 3:[address] [facility]) Hemoglobin A1c 10.1(H) <5.7 % 08/14/2024 3:48 AM [facility] Estimated Average Glucose 243 mg/dL 08/14/2024 3:48 AM [facility] Blood BLOOD SPECIMEN / Unknown Venipuncture / Unknown 08/14/2024 3:27 AM MANGLE ROLL OPERATOR 08/14/2024 3:[address] [facility] Narrative [facility] - 08/14/2024 3:[address] [facility] HbA1c Interpretation: Normal: < 5.7% Pre-diabetes: 5.7-6.4% [...] method. Alexus Ramirez MD LAB - CHEMISTRY ORDERABLES Final Result [facility] [address] [place] [address] from Last 3 Months or Most Recently Relevant to Health Maintenance Insurance [facility] [employer] Advance Directives * Full Code (Latest Code Status on File) Date Activated Date Inactivated Comments 08/13/2024 3:54 PM 08/18/2024 6:24 PM Care Teams Tax Director Relationship Specialty Start Date End Date Kishor Saleh MD [address] [facility] [address] [address] [place] [id number] PCP - General Internal Medicine 07/31/23
--- OUTSIDE RECORDS SUMMARY | 2024-12-08 17:48 | XMS_ITS | Clinical Summary ---
Author Organization [facility] Address [address] [place] [address] Phone Care Team Providers Care Cadmium Liquor Maker Name Role Phone Masoud Hayes MD Primary Care Provider [phone] Allergies Active Allergy Reactions Criticality Noted Date [...] mouth daily. 30 Tablet 08/13/2022 2:47 PM CRABBER 3 Active amLODIPine (NORVASC) 2.5 mg tablet Take 1 Tablet (2.5 mg) by mouth daily in the morning. 90 Tablet 05/29/2023 5:55 PM CDT 3 Active cyclobenzaprine (FLEXERIL) 5 mg Tablet TAKE 1-2 TABLETS BY MOUTH NIGHTLY TO REDUCE MUSCLE CRAMPS 60 Tablet 3 07/10/2023 3:38 PM CRABBER 3 Active hydroxychloroqu ine (PLAQUENIL) 200 mg tablet TAKE 2 TABLETS BY MOUTH ONCE DAILY 60 Tablet 3 07/10/2023 3:38 PM CRABBER 3 Active mycophenolate mofetil (CELLCEPT) 500 mg tablet TAKE 3 TABLETS BY MOUTH TWICE DAILY 180 Tablet 4 07/10/2023 3:38 PM CRABBER 3 Active insulin glargine (LANTUS) 100 unit/mL [...] for pain 30 Tablet 07/13/2024 12:19 PM CRABBER 4 Active methylPREDNISol one (Medrol, Marvel,) 4 [...] 3 Active fluticasone propionate (FLONASE) 50 mcg/spray [place], Suspension nasal inhaler Administer 2 Sprays in each nostril 1 time daily as needed. 3 Active folic acid (FOLVITE) 1 mg tablet 4 Active gabapentin (NEURONTIN) 300 mg capsule 4 Active glucagon (BAQSIMI) 3 mg/spray [place], Non-Aerosol Administer 1 [place] in each nostril. 4 Active insulin glargine-yfgn 100 unit/mL pen syringe Inject 20 AM and 30 units PM daily; MDD is 70 units. 3 Active Lyletitia UnderwoodPen U-100 Insulin 100 unit/mL Insulin Pen Inject [...] daily. 120 Tablet 3 09/11/2024 3:51 PM CRABBER 4 Active venlafaxine (EFFEXOR XR) 150 mg Extended Release 24 hour capsule Take 1 capsule (150 mg total) by mouth daily 30 Capsule 07/13/2024 12:19 PM CRABBER 4 Active tirzepatide (Mounjaro) 10 mg/0.5 mL Pen Injector Inject 10 mg under the skin every 7 days 2 mL 3 09/29/2024 4:41 PM CRABBER 4 Active isosorbide dinitrate (ISORDIL) 5 mg tablet Take 1 Tablet (5 mg) by mouth 3 times daily. 90 Tablet 10/10/2024 4:41 PM CDT 5 Active metoprolol tartrate (LOPRESSOR) 25 mg tablet Take 0.5 Tablets (12.5 mg) by mouth 2 times daily. 30 Tablet 10/10/2024 4:41 PM CDT 5 Active tirzepatide (Mounjaro) 12.5 mg/0.5 mL Pen Injector Inject 0.5 mL (12.5 mg total) under the skin every 7 days 2 mL 3 10/20/2024 10:04 AM CDT 5 Active budesonide-form oteroL (SYMBICORT) 160-4.5 mcg/actuation HFA Aerosol Inhaler Inhale 2 puffs by mouth 2 (two) times a day. Rinse mouth with water after use. Do not swallow. 10.2 Gram 11 11/02/2024 2:13 PM CDT 5 Active inhalational spacing device (EasiVent Holding Chamber) Spacer USE WITH INHALER. 1 Each 11/02/2024 2:13 PM CDT 5 Active sulfamethoxazol e-trimethoprim (BACTRIM DS) 800-160 mg tablet Take 1 tablet (160 mg of trimethoprim total) by mouth 3 (three) times a week 12 Tablet 1 11/02/2024 2:13 PM CDT 5 Active traMADol (ULTRAM) 50 mg tablet Take 1 tablet (50 mg total) by mouth every 8 (eight) hours as needed for pain. 30 Tablet 11/18/2024 12:24 PM CDT 5 Active doxycycline hyclate (VIBRAMYCIN) 100 mg capsule Take 1 Capsule (100 mg) by mouth 2 times daily for 10 days. 20 Capsule 11/30/2024 4:18 PM CDT 5 12/11/19 25 Active Active Problems Patient Care Coordination No te Formatting of this note migh t be different from the original. 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 Peraza Problem Noted Date Diagnosed Date Dyspnea 03/19/2012 Overview (03/22/2012): 02/11 EKG: NSR at 92 02/11 echo (TDS): EF 55%, trace MR, PA 24 Edema 03/19/2012 Hyperlipidemia 03/19/2012 Overview (03/19/2012): 02/11 cholesterol 235 HDL 51 LDL 153 triglyceride 155 Diabetes mellitus 03/19/2012 Overview (03/19/2012): 02/11 hemoglobin A1c 8.2 HTN (hypertension) Encounters Date Type Department Care Team Description 11/15/2024 External Device Data STL ABSTRACTION Provider, Abstract 11/15/2024 External Device Data STL ABSTRACTION Provider, Abstract 11/01/2024 External Device Data ST[facility] ABSTRACTION Provider, Abstract 10/19/2024 External Device Data STL ABSTRACTION Provider, Abstract 10/11/2024 External Device Data ST[facility] ABSTRACTION Provider, Abstract 10/11/2024 External Device Data ST[facility] ABSTRACTION Provider, Abstract 10/10/2024 External Device Data ST[facility] ABSTRACTION Provider, Abstract 10/08/2024 External Device Data ST[facility] ABSTRACTION Provider, Abstract 10/07/2024 External Device Data STL ABSTRACTION Provider, Abstract 10/04/2024 External Device Data STL ABSTRACTION Provider, Abstract 09/27/2024 External Device Data STL ABSTRACTION Provider, [...] on file Legal Sex Female 6:10 AM CRABBER Gender Identity Not on file Sexual Orientation Not on file 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 Not on file Not on file Not on file Last Filed Vital Signs Vital Sign Reading Time Taken Comments Blood Pressure 128/90 06/21/2024 10:51 AM CRABBER Pulse 82 03/22/2012 2:23 PM CDT Temperature - - Respiratory Rate 18 03/22/2012 2:23 PM CDT Oxygen Saturation 97% 03/22/2012 1:51 PM CDT Inhaled Oxygen Concentration - - Weight 141.2 kg (311 lb 3.2 oz) 024 10:51 AM CRABBER Height 167.6 cm (5' 6 ) 05/17/2024 11:2 7 AM CDT Body Mass Index 50.23 05/17/2024 11:27 AM CDT Plan of Treatment Upcoming Encounters Date Type Department Care Team (Late st Contact Info) Description 12/29/2024 11:30 AM CDT Office Visit [facility] 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 [place] [phone] Health Maintenance Due Date Last Done Comments [...] 5 years 2021 INFLUENZA VACCINE (#1) 2024 3, 05/23/2022, 05/16/2020, Additional history exists BREAST CANCER SCREENING 12/28/2024 12/29/19 24, 12/29/2023, 02/25/2023, Additional history exists DIABETES HBA1C Q 6 MONTHS 02/11/2025 08/14/2024, DIABETES ANNUAL FOOT EXAM 04/06/2025 04/06/2024 PAP SMEAR 05/17/2027 05/17/2024 CERVICAL CANCER SCREENING 05/17/2029 HPV/Cotest (21-29) 05/17/2029 05/17/2024 HPV/Cotest (30-65) 05/17/2029 05/17/2024 COLORECTAL SCREENING 04/02/2032 04/02/2022, 04/02/20 22 Colorectal Cancer Screening 04/02/2032 Procedures Procedure Name Priority Date/Time Associated Diagnosis Comments CERV/VAG CYTO AGE BASED SCREEN PAP Routine 05/17/2024 4:26 PM CDT Screening for malignant neoplasm of cervix from Last 3 Months or Most Recently Relevant to Health Maintenance Results * CERV/VAG CYTO AGE BASED SCREEN PAP (05/17/2024 4:26 PM CDT) COMMENT (PAP): [facility] Comment: This order for age-based cervical cancer and STI screening follows ACOG guidelines(PB 168, 140, VFP814). See individual assays for performing site location. CLINICAL INFORMATION [facility] Comment:None given LAST MENSTRUAL PERIOD [facility] Comment:10/02/2023 PREV PAP: [facility] Comment:NONE GIVEN PREV BX: [facility] Comment:NONE GIVEN SOURCE [facility] Comment:Endocervix ADEQUACY: [facility] Comment: Satisfactory for evaluation. Endocervical/transformation zone component absent. PAP INTERP [facility] Comment: Cytology Results: Negative for intraepithelial lesion or malignancy. COMMENT (PAP TEST) [facility] Comment: This Pap test has been evaluated with computer assisted technology. SCRAP IRON LOADER: [facility] Comment: MEF, CT(ASCP) CT screening location: [place] [address] [place] [address] EXPLANATORY NOTE [facility] Comment: EXPLANATORY NOTE: The Pap is [...] information. HPV E6/E7 Not Detected Not Detected [facility] Comment: Methodology: Aquatic Habitat Biologist-Mediated Amplification This assay detects E6/E7 viral messenger RNA (mRNA) from 14 high-risk HPV types (16,18,31,33,35,39,45,51,52,56,58,59,66,68). Cervical sources are required for HPV testing. If a vaginal source from a patient who has had a total hysterectomy with removal of cervix was submitted, please contact the testing laboratory for alternative testing options. For additional information, please refer to [email or web address] (This link if provided for information/ educational purposes only.) Test Performed at: [facility] [id number] [phone] Torin Dunn MD SL Genital SWAB OF ENDOCERVIX / Unknown 05/17/2024 4:26 PM CDT 05/18/2024 3:48 AM CDT Kendrick Teague MD PATHOLOGY/CYTOLOGY ORDERABLE S Final Result [facility] [phone] [facility] [id number] [phone] from Last 3 Months or Most Recently Relevant to Health Maintenance Insurance [id number] [id number] [facility] Address: [facility] [id number] [place] [address] RX [employer] RX Member Subscriber Plan / Payer (Ef fective 2023-Present) Name:Walt Huitron Relation to Subscriber:Self Name:Walt Huitron Subscriber ID:Not on file Payer ID:Not on file Group ID:[id number] Type:RX Commercial Address: [address] RX OLIVEIRA PLANS (INTERNAL) [facility] Care Teams Cadmium Liquor Maker Relationship Specialty Start Date End Date Masoud Hayes MD PCP - General Internal Medicine 03/08/12
--- OUTSIDE RECORDS SUMMARY | 2024-12-08 17:48 | XMS_ITS | Continuity of Care Document ---
Author Organization [id number] Address [address] [facility] [address] [place] [address] Insurance Providers Payer Plan Claims Address Claims Phone Policy Number Group Number Relation Employer Guarantor Name Guarantor Guarantor Address Guarantor Phone RX MEDIMP ACT RX MEDIM PACT [place] tel:[phone] [id number] Self Camila Huitron 1975 [address] [place] [address] RX OLIVEIRA PLANS (INTER NAL) RX OLIVEIRA PLANS (INTE RNAL) [id number] Self Camila Huitron 1975 [address] [place], [place] [id number] Critical access hospital [address], [place] [address] tel:[phone] Self Camila Huitron 1975 [facility] [place] [address] Problems Condition ICD9 code ICD10 code SNOMED code Start Date End Date S tatus Cellulitis, unspecified L03.90 Working Hypo-osmolality and hyponatremia E87.1 Working Essential (primary) hypertension I10 Working Obstructive sleep apnea (adult) (pediatric) G47.33 Worki ng Dehydration E86.0 Working Cellulitis, unspecified L03.90 Final Essential (primary) hypertension I10 Final Obstructive sleep apnea (adult) (pediatric) G47.33 Final Hypo-osmolality and hyponatremia E87.1 Final Dehydration E86.0 Final Sepsis, unspecified organism A41.9 Final Arteritis, unspecified I77.6 F inal COVID-19 U07.1 Working Pneumonia, unspecified organism J18.9 Working Type 2 diabetes mellitus with hyperglycemia E11.65 Workin g Arteritis, unspecified I77.6 W orking Essential (primary) hypertension I10 Working COVID-19 U07.1 Final Pneumonia, unspecified organism J18.9 Final Type 2 diabetes mellitus with hyperglycemia E11.65 Final Arteritis, unspecified I77.6 F inal Essential (primary) hypertension I10 Final Results No Results Allergies, adverse reactions, alerts No known allergies and adverse reactions Medications No administered medications reported Vital Signs No vital signs reported Social History No smoking Hx information available
--- OUTSIDE RECORDS SUMMARY | 2024-12-08 17:48 | XMS_ITS | Encounter Summary ---
Author Organization [facility] Address [address] [place] [address] Care Team Providers Care Physical Chemistry Teacher Name Role Phone Tiffany Cox MD Primary Care Provider Unavailable Kishor Saleh MD Primary Care Provider [phone] Encounter Details Date Type Department Care Team (Late st Contact Info) Description 07/03/2023 Lab Requisition [facility] [address] [place] [id number] [place] [address] [address] [place] [id number] Social History Tobacco Use Types Packs/Day Years Used Date Smoking Tobacco: Never Assessed Comments Unknown Sex and Gender Information Value Date Recorded Sex Assigned at Not on file Legal Sex Female 4:50 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 Gender Identity Not on file Sexual Orientation Not on file documented as of this encounter Plan of Treatment Not on file documented as of this encounter Visit Diagnoses Not on filedocumented in this encounter Additional Health Concerns Infection Onset Date Last Indicated Resolved Time COVID-19 Under Investigation 08/13/2024 08/13/2024 08/13/2024 11:30 PM SCIENTIFIC PROCESS OPERATOR documented as of this encounter Care Teams Physical Chemistry Teacher Relationship Specialty Start Date End Date Tiffany Cox MD PCP - General Internal Medicine 05/16/13 07/30/23 Kishor Saleh MD [address] [place] [address] [address] [address] [place] [id number] PCP - General Internal Medicine 07/31/23 documented as of this encounter
--- OUTSIDE RECORDS SUMMARY | 2024-12-08 17:48 | XMS_ITS | Referral Summary ---
Author Organization [facility] A Address [address] [place] [address] Care Team Providers Care Sausage Wrapper Name Role Phone Ann Serrano MD Unavailable [phone] Lynn Rodriguez MD Primary Care Provider Encounters Date Type Department Care Team Description 11/30/2024 3:30 PM CDT Office Visit [facility] Con[facility] at [address] [phone] Minnie House NP Acute non-recurrent frontal sinusitis (Primary Dx) 11/09/2024 Results Follow-Up [facility] Pulmonary at [place] [address] [facility] [address] [place] [phone] Josiah Doan DO Chronic respiratory failure with hypoxia (HCC) (Primary Dx); Hypoxia 11/09/2024 7:18 AM CDT - 11/09/2024 11:59 PM CDT Hospital Encounter [facility] Respiratory [address] [place] [address] Severe persistent asthma without complication (HCC) Discharge Disposition: Discharge to home or self care 11/07/2024 Results Follow-Up [facility] at [address] [phone] Karley Rubi NP 11/07/2024 2:30 PM CDT Ancillary Procedure [facility] Imaging at [address] [phone] Wheezing 11/07/2024 2:00 PM CDT Office Visit [facility] at [address] [phone] Karley Rubi NP Sore throat (Primary Dx); Wheezing; History of asthma 11/01/2024 1:00 PM CDT Office Visit [facility] Pulmonary at [address] [place] [address] Josiah Doan DO Severe persistent asthma without complication (HCC) (Primary Dx); Obstructive sleep apnea; Immunosuppression due to drug therapy; Class 3 severe obesity due to excess calories with serious comorbidity and body mass index (BMI) of 45.0 to 49.9 in adult (HCC) 10/25/2024 Telephone [facility] Endocrinology Metabolism and Lipid [address] [facility] 5th [place] [address] [place] [phone] Lesia Arenas RN eye exam 10/25/2024 Orders Only [facility] Endocrinology Metabolism and Lipid [address] [facility] 13th [place] [address] [place] [phone] Stephenie Cruz MD 10/12/2024 9:00 AM CDT Telemedicine [facility] Endocrinology Metabolism and Lipid [address] [facility] 13th [place] [address] [place] [phone] Shirley Teixeira PA Uncontrolled type 2 diabetes mellitus with hyperglycemia (HCC) (Primary Dx); Mixed hyperlipidemia; Class 3 severe obesity due to excess calories with serious comorbidity and body mass index (BMI) of 45.0 to 49.9 in adult (HCC); 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); longterm 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 user 10/07/2024 Ancillary Procedure [facility] 10/03/2024 Ancillary Procedure [facility] 10/03/2024 Ancillary Procedure [facility] 09/24/2024 Ancillary Procedure [facility] 09/22/2024 Ancillary Procedure [facility] 09/22/2024 Ancillary Procedure [facility] from Last 3 Months Allergies Active Allergy [...] Other (See comments) Low 09/01/2018 bruising Medications ibuprofen (ADVIL,MOTRIN) 600 mg tabletIndication s:Acute sinusitis, [...] TWICE DAILY FOR 2 WEEKS 023 Active hydroxychloroqui ne (PLAQUENIL) 200 mg [...] Active predniSONE (DELTASONE) 10 mg tablet Active venlafaxine XR (EFFEXOR-XR) 150 mg 24 [...] to 4 times daily. 400 each 3 Active pen needle, diabetic (Pen Needle) 32 gauge x 5/32 needleIndication s:Uncontrolled type 2 diabetes mellitus with hyperglycemia (HCC) Use to inject insulin up as directed to 5 times daily. 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 Change sensor every 10 days. 9 each 3 Active blood glucose diagnostic stripIndications :Uncontrolled type 2 diabetes mellitus with hyperglycemia (HCC) Use to check blood sugar as directed up to 4 times dialy. 400 strip 3 Active acetaminophen (TYLENOL) 500 mg tablet Take 1 tablet (500 mg total) by mouth every 6 (six) hours as needed Active methotrexate 2.5 mg tablet Take 5 tablets (12.5 mg total) by mouth Active montelukast (SINGULAIR) 10 mg tablet Take 1 tablet (10 mg total) by mouth nightly Active cyclobenzaprine (FLEXERIL) 10 mg tablet 3 Active albuterol HFA (ProAir HFA) 90 mcg/actuation inhaler Inhale 2 puffs every 4 (four) hours as needed for wheezing or shortness of breath 8.5 g 11 025 2025 Active albuterol 2.5 mg /3 mL (0.083 %) nebulizer solution USE 1 VIAL VIA NEBULIZER EVERY 6 HOURS NEEDED FOR WHEEZING (SPREADING MACHINE OPERATOR RECOMMENDS NOT EXCEEDING 4 VIALS/DAY) 150 mL 3 Active isosorbide dinitrate (ISORDIL) 5 mg tablet Take 1 tablet (5 mg total) by mouth 3 (three) times a day Active metoprolol tartrate (LOPRESSOR) 25 mg immediate release tablet Take 0.5 tablets (12.5 mg total) by mouth 2 (two) times a day Active budesonide-formo teroL (SYMBICORT) 160-4.5 mcg/actuation inhaler Inhale 2 puffs 2 (two) times a day Rinse mouth with water after use. Do not swallow. 1 each Active inhalational spacing device spacer 1 each daily 1 each Active sulfamethoxazole -trimethoprim (BACTRIM DS) 800-160 mg per tablet Take 1 tablet (160 mg of trimethoprim total) by mouth 3 (three) times a week 12 tablet 1 2024 Active traMADoL (ULTRAM) 50 mg tablet Take 1 tablet (50 mg total) by mouth every 8 (eight) hours as needed for pain 30 tablet Active Mounjaro 12.5 mg/0.5 mL pen injector injectionIndicat ions:Uncontrolle d type 2 diabetes mellitus with hyperglycemia (HCC),Class 3 severe obesity due to excess calories with serious comorbidity and body mass index (BMI) of 45.0 to 49.9 in adult ([facility]) INJECT THE CONTENTS OF ONE PEN SUBCUTANEOUSLY WEEKLY DIRECTED 2 mL Active doxycycline (VIBRAMYCIN) 100 mg capsuleIndicatio ns:Acute non-recurrent frontal sinusitis Take 1 tablet/capsule (100 mg total) by mouth 2 (two) times a day for 10 days 20 tablet/cap rudy 2024 Active Vitamin D2 1,250 mcg (50,000 unit) capsule TAKE 1 CAPSULE BY MOUTH TWICE WEEKLY 26 capsule 3 Active traMADoL (ULTRAM) 50 mg tablet Take 1 tablet (50 mg total) by mouth every 8 (eight) hours as needed for pain 30 tablet 024 2024 Discontinued ergocalciferol (Vitamin D2) 50,000 unit capsule TAKE 1 CAPSULE BY MOUTH TWICE A WEEK 26 capsule 1 024 2024 Discontinued tirzepatide (Mounjaro) 12.5 mg/0.5 mL pen injector injectionIndicat ions:Uncontrolle d type 2 diabetes mellitus with hyperglycemia (HCC),Class 3 severe obesity due to excess calories with serious comorbidity and body mass index (BMI) of 45.0 to 49.9 in adult (HCC) Inject 0.5 mL (12.5 mg total) under the skin every 7 days 2 mL 3 025 2024 Discontinued Active Problems Problem Noted Date Diagnosed Date Uncontrolled diabetes mellitus with hyperglycemi a 08/14/2024 Acute hypoxic respiratory failure 08/13/2024 Assessment & Plan (08/26/2024 6:09 PM RETAIL RECEIVING CLERK): Recent hospitalization likely for CAP followed by RSV Symptoms resolved 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 07/13/2024 Assessment & Plan (07/13/2024 12:22 PM RETAIL RECEIVING CLERK): - Further complicates diabetes management Need for vaccination 04/06/2024 Assessment & Plan (04/06/2024 4:14 PM CDT): Received pneumonia vaccine today history of pneumonia currently no complaints last bout in 08/2023 Head trauma 09/04/2022 Assessment & Plan (09/04/2022 2:35 PM RETAIL RECEIVING CLERK): No signs of neurological abnormality on examination [...] booster Assessment & Plan (06/24/2021 3:28 PM RETAIL RECEIVING CLERK): Pito vaccine 10/05/2020 and Moderna booster Jun 2021 Major depressive disorder 04/22/2021 Assessment & Plan (01/06/2024 9:09 AM CDT): Stable on current medication regimen. Assessment & Plan (01/17/2022 10:21 AM CDT): Stable on current medication regimen. Assessment & Plan (07/17/2021 2:07 PM RETAIL RECEIVING CLERK): Better controlled on venlafaxine. Assessment & Plan (04/22/2021 8:25 AM CDT): Restart venlafaxine and warned of side effects and call back if any develop or if no improvement. Type 2 diabetes mellitus with hyperlipidemia 06/2020 Assessment & Plan (01/06/2024 9:09 AM CDT): A1c above goal. Will start Mounjaro soon. Continue other medications as directed by her fibreglass lay up worker. Diet exercise discussed. Hopefully may be able to wean prednisone in the near future as well. Assessment & Plan (06/15/2023 10:48 AM RETAIL RECEIVING CLERK): She knows that the steroids will exacerbate her hyperglycemia and should be in contact with her fibreglass lay up worker for management. Assessment & Plan (06/08/2023 5:26 PM RETAIL RECEIVING CLERK): Poor control of her diabetes prior to this hospitalization and even worse now on prednisone. Follow-up with her fibreglass lay up worker for management. Diet exercise weight loss recommended. Assessment & Plan (01/21/2023 9:50 AM CDT): Blood sugars remain above goal. Hopefully the recent addition of mounjaro will help significantly. Discuss up titration of this and her mealtime insulin with her fibreglass lay up worker. Diet exercise discussed. Check A1c and fasting blood sugar before next visit. Assessment & Plan (08/02/2022 12:16 PM RETAIL RECEIVING CLERK): A1c poorly controlled. Importance of diet exercise weight loss discussed at length. Continue her Ozempic and insulin and needs to contact her fibreglass lay up worker soon as possible for guidance on further therapy. Assessment & Plan (01/17/2022 10:22 AM CDT): Patient aware A1c grossly uncontrolled. Must work on diet exercise and weight loss. She has to get back on her insulin and should discuss this today with her fibreglass lay up worker. Risks posed her health with poor glycemic control discussed. Assessment & Plan (07/13/2020 8:34 AM RETAIL RECEIVING CLERK): A1c above goal. Importance of diet exercise weight loss discussed. Continue current medication regimen and follow-up with her fibreglass lay up worker as they direct. 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 Unfortunately lab work and skin biopsy inconclusive. Discussed possible rheumatology 2nd opinion here at [facility] and patient will call back if desired. Assessment & Plan (06/15/2023 10:48 AM RETAIL RECEIVING CLERK): Certainly making a case for underlying vasculitis [...] condition. Assessment & Plan (06/20/2020 9:35 AM RETAIL RECEIVING CLERK): Unclear etiology but I am thinking of [...] 49.9 in adult 07/08/2019 Assessment & Plan (10/12/2024 11:34 AM CDT): - Increase Mounjaro to 12.5 mg once a week - Encourage to increase physical activity as tolerated Assessment & Plan (08/26/2024 6:10 PM RETAIL RECEIVING CLERK): Body mass index is 49.1 kg/m . BMI Follow-up includes: nutrition counseling, exercise counseling, and education provided. Assessment & Plan (07/13/2024 12:20 PM RETAIL RECEIVING CLERK): - Increase Mounjaro to 10 mg weekly [...] tolerated. Assessment & Plan (06/08/2023 5:23 PM RETAIL RECEIVING CLERK): Patient is encouraged to lose weight with a combination of caloric reduction and increased exercise. Various strategies discussed. The long-term risks associated with continued morbid obesity discussed. Assessment & Plan (09/04/2022 2:34 PM RETAIL RECEIVING CLERK): Patient is encouraged to lose weight with a combination of caloric reduction and increased exercise. Various strategies discussed. The long-term risks associated with continued morbid obesity discussed. Assessment & Plan (08/02/2022 12:16 PM RETAIL RECEIVING CLERK): Patient is encouraged to lose weight with [...] discussed. Assessment & Plan (07/13/2020 8:34 AM RETAIL RECEIVING CLERK): Patient is encouraged to lose weight with a combination of caloric reduction and increased exercise. Various strategies discussed. The long-term risks associated with continued morbid obesity discussed. Assessment & Plan (06/20/2020 9:35 AM RETAIL RECEIVING CLERK): Patient is encouraged to lose weight with a combination of caloric reduction and increased exercise. Various strategies discussed. The long-term risks associated with continued morbid obesity discussed. Assessment & Plan (07/08/2019 8:44 AM RETAIL RECEIVING CLERK): Patient is encouraged to lose weight with a combination of caloric reduction and increased exercise. Various strategies discussed. The long-term risks associated with continued morbid obesity discussed. Irregular menses 06/03/2019 Allergic rhinitis 07/05/2018 Assessment & Plan (02/23/2023 1:30 PM CDT): Nasal saline spray (Simply saline, [employer] Remedies, [place], [place]) 2 second sprays or 2 squeezes into [...] daily Assessment & Plan (07/17/2021 2:07 PM RETAIL RECEIVING CLERK): Claritin montelukast. Assessment & Plan (04/22/2021 8:25 AM CDT): Currently using Claritin and montelukast. She has not been trying Flonase as her nose is being to congested. Recommended sinus rinses her using a hot warm shower. Could also try Afrin for few days. Assessment & Plan (07/08/2019 8:43 AM RETAIL RECEIVING CLERK): Add montelukast to her Claritin. She struggles with nasal sprays due to chronic congestion. Assessment & Plan (07/05/2018 9:24 AM RETAIL RECEIVING CLERK): Try Afrin for 3 days along with initiating fluticasone. Stop Afrin in3 days and continue fluticasone indefinitely. continue Zyrtec. Mixed hyperlipidemia 07/02/2017 Assessment & Plan (10/12/2024 11:33 AM CDT): - Last LDL 103, TG 308, TC 233 (12/2023), above goal - Continue Lipitor 20 mg daily - Need to repeat lipid panel - Consider increasing and/or adding another medication in order to further reduce LDL to goal < 70 mg/dL Assessment & Plan (07/13/2024 12:21 PM RETAIL RECEIVING CLERK): - Last LDL 103, TG 308, TC [...] triglycerides. Assessment & Plan (09/12/2023 8:12 PM RETAIL RECEIVING CLERK): Continue statin and optimize glycemic control Assessment & Plan (02/16/2023 8:14 PM CDT): Continue statin and optimize glycemic control Assessment & Plan (01/21/2023 9:50 AM CDT): Continue her atorvastatin and work on diet exercise and check lipids and LFTs before next visit. Assessment & Plan (08/02/2022 12:15 PM RETAIL RECEIVING CLERK): Well controlled on current therapy and will check a lipid panel and LFTs in 6 months. Assessment & Plan (01/17/2022 10:21 AM CDT): Well controlled on current therapy and will check a lipid panel and LFTs in 6 months. Assessment & Plan (07/17/2021 2:06 PM RETAIL RECEIVING CLERK): Well controlled on current therapy and will check a lipid panel and LFTs in 6 months. Assessment & Plan (06/24/2021 3:28 PM RETAIL RECEIVING CLERK): Continue statin and optimize glycemic control Assessment & Plan (12/19/2020 7:53 AM CDT): Continue statin and optimize glycemic control Assessment & Plan (07/13/2020 8:34 AM RETAIL RECEIVING CLERK): Well controlled on current therapy and will check a lipid panel and LFTs in 6 months. Assessment & Plan (06/08/2020 8:31 AM RETAIL RECEIVING CLERK): LDL within goal. Continue statin and optimize glycemic control Assessment & Plan (07/08/2019 8:42 AM RETAIL RECEIVING CLERK): Well controlled on current therapy and will check a lipid panel and LFTs in 12 months. Assessment & Plan (09/01/2018 2:22 PM RETAIL RECEIVING CLERK): Continue statin, optimize glycemic control Assessment & Plan (07/05/2018 9:23 AM RETAIL RECEIVING CLERK): Well controlled on current therapy and will check a lipid panel and LFTs in 6 months. Assessment & Plan (08/26/2017 4:27 PM RETAIL RECEIVING CLERK): Start atorvastatin and check lipids and LFTs in 3-4 months. Call back for results. Vitamin D deficiency 07/02/2017 Assessment & Plan (07/13/2024 12:22 PM RETAIL RECEIVING CLERK): - Last Vitamin D 42 (12/2023), replete [...] week Assessment & Plan (09/12/2023 8:12 PM RETAIL RECEIVING CLERK): Continue long-term supplement Assessment & Plan (02/16/2023 8:14 PM CDT): Continue long-term supplement Assessment & Plan (08/02/2022 12:15 PM RETAIL RECEIVING CLERK): Continue current supplementation and check level in 1 year. Assessment & Plan (07/17/2021 2:06 PM RETAIL RECEIVING CLERK): Continue current supplementation and check level in 1 year. Assessment & Plan (06/24/2021 3:29 PM RETAIL RECEIVING CLERK): Continue long-term supplement Assessment & Plan (12/19/2020 7:53 AM CDT): Continue long-term supplement Assessment & Plan (07/13/2020 8:33 AM RETAIL RECEIVING CLERK): Continue current supplementation and check level in 1 year. Assessment & Plan (06/08/2020 8:31 AM RETAIL RECEIVING CLERK): Vitamin-D level within goal, continue chronic supplement Assessment & Plan (07/08/2019 8:42 AM RETAIL RECEIVING CLERK): Continue current supplementation and check level in 1 year. Assessment & Plan (06/03/2019 8:24 AM CDT): Recently ran out of supplement, so we will restart and check her level today. Also check B12 Assessment & Plan (09/01/2018 2:22 PM RETAIL RECEIVING CLERK): Continue supplement Assessment & Plan (07/05/2018 9:23 AM RETAIL RECEIVING CLERK): Continue current supplementation and check level in 1 year. Assessment & Plan (08/26/2017 4:26 PM RETAIL RECEIVING CLERK): Continue current supplementation and check level in 1 year. Uncontrolled type 2 diabetes mellitus with hyper glycemia 03/24/2016 Overview (07/05/2018): Cannot tolerate metformin, glipizide due to nausea/vomiting; Invokana works better than jardiance. Does not tolerate acarbose Assessment & Plan (10/12/2024 11:32 AM CDT): - Diabetes is complicated by hyperlipidemia, hypertension, obesity and chronic steroid use. Control is improving with most recent A1c 7.8%. Lab Results Component Value Date HGBA1C 11.7 07/13/2024 Per [place] [employer], goal A1c is less 7% without significant hypoglycemia. - Management Goal: A1c <7.0% - Increase Mounjaro to 12.5 mg once a week - Continue Lantus 45 units twice daily - Lyumjev 16 units with breakfast and lunch, 18 units with dinner 1:25 > 150 mg/dL - She is going to re-start Dexcom G7 CGM. Given instructions on how to connect to clinic - Advised bolusing <5 minutes before each meal. - Advised annual dilated eye exam - DUE. - Advised checking blood glucose before driving - Discussed hypoglycemia risk, and treatment such as the rule of 15s and the use of glucagon - Annual labs are due at next visit. - Update me on consistent glycemia excursions or if there is any hypoglycemia. - Advised and ensured that I am available via phone or [facility] if they have any concerns for hypo/hyperglycemia, medication refills, etc. Assessment & Plan (08/26/2024 6:10 PM RETAIL RECEIVING CLERK): Assessment & Plan (07/13/2024 12:20 PM RETAIL RECEIVING CLERK): - Diabetes is complicated by hyperlipidemia, hypertension, [...] in prescriptions for both Dexcom G7 and [employer] Silva 3 CGM for olivares checking. Also [...] that I am available via phone or [facility] if they have any concerns for hypo/hyperglycemia, [...] Return visit 3 months to see the ROAD OILING TRUCK DRIVER/PA, 6 months to see me. Assessment & [...] that I am available via phone or Prev[facility] if they have any concerns for hypo/hyperglycemia, [...] for her Semglee. She is going to moss picker today after this visit. - Insurance [...] etc. Assessment & Plan (09/12/2023 8:13 PM RETAIL RECEIVING CLERK): Very high glucoses; multifactorial including steroid therapy, [...] daily. Assessment & Plan (06/24/2021 3:29 PM RETAIL RECEIVING CLERK): Much improved but needs a little more basal insulin. Assessment & Plan (12/19/2020 7:53 AM CDT): Multiple medications, but now requires insulin. We can gradually adjust her Lantus based on her clinical response. Assessment & Plan (06/08/2020 8:32 AM RETAIL RECEIVING CLERK): Glucoses somewhat better now that she is [...] motivator. Assessment & Plan (07/08/2019 8:43 AM RETAIL RECEIVING CLERK): Continue increased dose of Ozempic and also continue Invokana. Importance of dietary changes increase exercise weight loss discussed. Follow-up with her fibreglass lay up worker as they direct. Assessment & Plan (06/03/2019 8:25 AM CDT): Somewhat suboptimal, would benefit from increasing Ozempic and continuing efforts with diet and lifestyle. Needs follow-up labs Assessment & Plan (09/01/2018 2:22 PM RETAIL RECEIVING CLERK): Glucoses a little high, but she has bruising with Victoza so she may benefit by changing to weekly Ozempic, which is a little stronger, as well. Jardiance is been ineffective, so we may need to provide preauthorization for Invokana Assessment & Plan (07/05/2018 9:23 AM RETAIL RECEIVING CLERK): A1c above goal. We stressed importance of increased exercise, reduce calories, weight loss. Could consider switching Victoza to ozempic. Otherwise does not tolerate metformin or sulfonylureas. May need insulin soon. She is directed to follow up with her fibreglass lay up worker more quickly than her next scheduled appointment in November. Assessment & Plan (08/26/2017 4:26 PM RETAIL RECEIVING CLERK): Continue current medication regimen and follow up with her fibreglass lay up worker as they direct. Low carb diet weight loss recommended. Check blood sugars once daily. Start atorvastatin and check lipids and LFTs in 3-4 months. Anxiety state 12/17/2013 Overview (11/07/2016): ANXIETY STATE NOS Benign hypertension 12/17/2013 Overview (11/07/2016): BENIGN HYPERTENSION Assessment & Plan (07/13/2024 12:21 PM RETAIL RECEIVING CLERK): - Above goal today - Encouraged her [...] monitor. Assessment & Plan (06/08/2023 5:25 PM RETAIL RECEIVING CLERK): Stop amlodipine with current issues of swelling. Pressure currently well controlled and should monitor at home Assessment & Plan (01/21/2023 9:49 AM CDT): Blood pressure well controlled on lisinopril Assessment & Plan (09/04/2022 2:34 PM RETAIL RECEIVING CLERK): Blood pressure well controlled on her lisinopril. Assessment & Plan (08/02/2022 12:15 PM RETAIL RECEIVING CLERK): Increase lisinopril to 20 mg daily. Monitor blood pressure at home call back if no improvement. Assessment & Plan (01/17/2022 10:21 AM CDT): Well controlled on the current regimen. Avoidance of salt, proper body weight, and routine exercise recommended. Assessment & Plan (07/17/2021 2:06 PM RETAIL RECEIVING CLERK): Well controlled on the current regimen. Avoidance of salt, proper body weight, and routine exercise recommended. Assessment & Plan (04/22/2021 8:24 AM CDT): Well controlled on the current regimen. Avoidance of salt, proper body weight, and routine exercise recommended. Assessment & Plan (07/13/2020 8:34 AM RETAIL RECEIVING CLERK): Well controlled on the current regimen. Avoidance of salt, proper body weight, and routine exercise recommended. Assessment & Plan (07/08/2019 8:42 AM RETAIL RECEIVING CLERK): Well controlled on the current regimen. Avoidance of salt, proper body weight, and routine exercise recommended. Assessment & Plan (09/01/2018 2:21 PM RETAIL RECEIVING CLERK): Blood pressure close to target, working on diet and lifestyle Assessment & Plan (07/05/2018 9:23 AM RETAIL RECEIVING CLERK): Well controlled on the current regimen. Avoidance of salt, proper body weight, and routine exercise recommended. Assessment & Plan (08/26/2017 4:25 PM RETAIL RECEIVING CLERK): Well controlled on the current regimen. Avoidance of salt, proper body weight, and routine exercise recommended. Anemia 12/29/2012 Extrinsic asthma 08/19/2012 Overview (06/03/2019): Description: frequent flares Assessment & Plan (08/26/2024 6:08 PM RETAIL RECEIVING CLERK): Recent exacerbation due to CAP followed by RSV Symptoms improved Continue present plan and medication--albuterol prn, montelukast Assessment & Plan (07/13/2020 8:36 AM RETAIL RECEIVING CLERK): Doing well on her Symbicort. Okay to discontinue and use albuterol only as needed. Restart Symbicort if uses her albuterol more than 2 times a week. Sleep apnea syndrome 04/01/2012 Overview (11/12/2017): Description: CPAP Assessment & Plan (01/06/2024 9:08 AM CDT): Patient is compliant with the CPAP machine and gets symptomatic relief. Assessment & Plan (08/02/2022 12:15 PM RETAIL RECEIVING CLERK): Patient is compliant with the CPAP machine and gets symptomatic relief. Assessment & Plan (07/17/2021 2:06 PM RETAIL RECEIVING CLERK): Repeat sleep study confirmed obstructive sleep apnea [...] syndrome. Assessment & Plan (07/13/2020 8:34 AM RETAIL RECEIVING CLERK): Patient is compliant with the CPAP machine and gets symptomatic relief. Assessment & Plan (07/08/2019 8:42 AM RETAIL RECEIVING CLERK): Patient is compliant with the CPAP machine [...] legs Assessment & Plan (06/15/2023 10:47 AM RETAIL RECEIVING CLERK): Improved after addition of doxycycline to her Bactrim. Call back if symptoms worsen after doxycycline runs out Assessment & Plan (06/08/2023 5:25 PM RETAIL RECEIVING CLERK): Seems like cellulitis slow to improve either [...] yearly. Colonoscopy due March 2027. Follow-up the press feeder [facility] for breast exam pelvic exam as they direct. Will see her back in about 6 months sooner if needed. Assessment & Plan (08/02/2022 12:17 PM RETAIL RECEIVING CLERK): Flu shot each May. Tetanus booster every 10 years. Pneumovax completed. COVID booster recommended. Mammogram yearly. Colonoscopy due March 2027. Follow-up the press feeder [facility] for breast exam pelvic exam as they direct. Will see her back in 6 months with lab sooner if needed. Assessment & Plan (07/17/2021 2:08 PM RETAIL RECEIVING CLERK): Flu shot each May. Tetanus booster every 10 years. Pneumovax completed. COVID vaccine completed. Mammogram yearly. Colonoscopy ordered and she should verify coverage before proceeding. Follow-up the press feeder [facility] for breast exam and pelvic exam as they direct. We will see her back in 1 year for physical and fasting lab sooner if needed. Assessment & Plan (07/13/2020 8:35 AM RETAIL RECEIVING CLERK): Flu shot each May. Tetanus booster every 10 years. She has had a Pneumovax. Mammogram was abnormal back in August and she has delayed follow-up studies until now and she is urged to get her diagnostic and ultrasound studies done at her earliest convenience and she is aware of the risks posed her health with delay in proceeding. Follow-up the press feeder [facility] for breast exam and pelvic exam as they direct. We will see her back in 1 year for wellness visit fasting lab sooner if needed. Assessment & Plan (07/08/2019 8:43 AM RETAIL RECEIVING CLERK): Flu shot each May. Tetanus booster every 10 years. Mammogram ordered. Will see her back in 1 year for physical and fasting lab sooner if needed. Assessment & Plan (07/05/2018 9:24 AM RETAIL RECEIVING CLERK): Tetanus booster today. Flu shot each May. Mammogram ordered. Patient should follow-up the press [employer] breast exam and pelvic exam. We will see her back in 1 year for wellness visit fasting lab sooner if needed. Assessment & Plan (08/26/2017 4:27 PM RETAIL RECEIVING CLERK): Flu shot each May. Tetanus booster every 10 years. See her press feeder [employer] for breast exam mammogram and Pap smear is a direct. We will see her back in 1 year with fasting lab sooner if needed. Morbid obesity 08/26/2017 07/05/2018 Assessment & Plan (08/26/2017 4:28 PM RETAIL RECEIVING CLERK): Patient is encouraged to lose weight with [...] Unspecified 05/16/2021,2020,04/22/2021(Defer red: Patient Refused),03/19/2021(Deferred: Patient Refused),05/12/2019,05/07/2017 [employer] (J[employer]J) SARS-CoV-2 Vaccination 10/05/2020 Pneumococcal Conjugate Pcv20 04/06/2024 Pneumococcal Polysaccharide PPV23 08/03/2010, Td, adsorbed 07/05/2018 Tdap 10/04/2007 Social History Tobacco Use Types Packs/Day Years Used Date Smoking Tobacco: Never Passive Smoke Exposure: Never Smokeless Tobacco: Never Tobacco Cessation:Counseling Given: [...] on file Legal Sex Female 11:54 PM RETAIL RECEIVING CLERK Gender Identity Female 09/19/2020 8:37 AM RETAIL RECEIVING CLERK Sexual Orientation Straight 09/19/2020 8: 37 AM RETAIL RECEIVING CLERK Last Filed Vital Signs Vital Sign Reading Time Taken Comments Blood Pressure 147/85 11/30/2024 3:24 PM CDT Pulse 110 11/30/2024 3:24 PM CDT Temperature 36.4 C (97.6 F) 11/30/2024 3:24 PM CDT Respiratory Rate 20 11/30/2024 3:24 PM CDT Oxygen Saturation 98% 11/30/2024 3:24 PM CDT Inhaled Oxygen Concentration - - Weight 141.1 kg (311 lb) 11/30/2024 3:24 PM CDT Height 167.6 cm (5' 6 ) 11/01/2024 12:56 PM CDT Body Mass Index 50.2 11/01/2024 12:56 PM CDT Plan of Treatment Not on file Procedures Procedure Name Priority Date/Time Associated Diagnosis Comments BASIC METABOLIC PANEL Routine 11/09/2024 2:14 PM CDT Immunosuppression due to drug therapy PULMONARY FUNCTION TEST (PFT) Routine 11/09/2024 8:13 AM CDT Severe persistent asthma without complication (HCC) XR CHEST PA LATERAL 2 VIEWS Schedule JOSE, Read JOSE (Appt Today, Awaiting Results) 11/07/2024 2:35 PM CDT Wheezing POC INFLUENZA A/B, COVID-19 ANTIGEN Routine 11/07/2024 2:18 PM CDT Sore throat POCT RAPID STREP Routine 11/07/2024 2:08 PM CDT Sore throat XR TRANSFER OF OUTSIDE FILMS Routine 10/07/2024 12:00 AM RETAIL RECEIVING CLERK XR TRANSFER OF OUTSIDE FILMS Routine 10/03/2024 12:[address] RE[address] BODY OUTSIDE REFERENCE Routine 10/03/2024 12:00 AM RETAIL RECEIVING CLERK XR TRANSFER OF OUTSIDE FILMS Routine 09/24/2024 12:00 AM RETAIL RECEIVING CLERK XR TRANSFER OF OUTSIDE FILMS Routine 09/22/2024 12:00 [address] RETAIL RECE[address]ING CL[address] CT BODY OUTSIDE REFERENCE Routine 09/22/2024 12:00 AM RETAIL RECEIVING CLERK POCT HEMOGLOBIN A1C Routine 07/13/2024 9:08 AM RETAIL RECEIVING CLERK Uncontrolled type 2 diabetes mellitus with hyperglycemia (HCC) LIPID PANEL Routine 12/29/2023 12:26 PM CDT [...] Relevant to Health Maintenance Results * (ABNORMAL) Basic metabolic panel (11/09/2024 2:14 PM CDT) Glucose 300(H) 65 - 139 mg/dL Aleshia MamaThad Sheehan Comment: Non-fasting reference interval BUN 22 7 - 25 mg/dL Aleshia MontenegroFoodziePaula Sheehan Creatinine 0.77 0.50 - 0.99 mg/dL Aleshia BioActorPaula Sheehan eGFR 95 > OR = 60 mL/min/1.7 3m2 Aleshia Sheehan BUN/creat ratio SEE NOTE: 6 - 22 (calc) Aleshia Montenegro-Paula Sheehan Comment: Not Reported: BUN and Creatinine are within reference range. Sodium 137 135 - 146 mmol/L Aleshia MontenegroFoodziePaula Sheehan Potassium, pl 4.8 3.5 - 5.3 mmol/L Aleshia MontenegroFoodziePaula Sheehan Chloride 98 98 - 110 mmol/L Aleshia MontenegroFoodziePaula Sheehan CO2 28 20 - 32 mmol/L Aleshia BioActorS ian Sheehan Calcium 10.0 8.6 - 10.2 mg/dL Aleshia BioActorPaula Sheehan Blood 11/09/2024 2:14 PM CDT 11/09/2024 2:14 PM CDT Narrative [facility] - 11/10/2024 2:33 AM CDT FASTING:NO FASTING: NO Josiah Doan DO LAB BLOOD ORDERABLES Flora dowd Result [facility] [address] [place] [address] * Pulmonary Function Test - (11/09/2024 8:13 AM CDT) Anatomical Region Laterality Modality PFT 11/09/2024 7:23 AM CDT Narrative 11/09/2024 9:27 AM CDT PFT performed at:->[facility] Normal spirometry without obstruction or change post bronchodilator therapy. Lung volumes demonstrate concomitant restrictive ventilatory impairment. DLCO is reduced compatible with diffusion impairment. Findings can be seen with emphysema or other pulmonary vascular or pulmonary parenchymal process. Suggest clinical correlation. Electronically signed by Wallace Mendoza MD, [facility] Pulmonary and Critical Care Medicine [facility] Josiah Lucian Franki DO PFT ORDERABLES Final Res ult * XR Chest Pa Lateral 2 Views (11/07/2024 2:35 PM CDT) Anatomical Region Laterality Modality Body, Chest N/A Digital Radiogra phy 11/07/2024 3:24 PM CDT Narrative 11/07/2024 3:24 PM CDT EXAM DESCRIPTION: XR CHEST PA LATERAL 2 VIEWS REASON FOR STUDY: cough Pt complains of cough since , worsening last night. History of asthma. No surgery to heart, lungs, or chest. Non-smoker. TECHNIQUE: Frontal and lateral views of the chest. COMPARISON: None FINDINGS: LUNGS AND PLEURA: No focal airspace opacity, pleural effusion, or pneumothorax identified. HEART/MEDIASTINUM: Trachea midline. Cardiac silhouette normal in size. Mediastinal contours appear normal. BONES: Unremarkable. CHEST WALL: Unremarkable. UPPER ABDOMEN: Moderately elevated right hemidiaphragm. IMPRESSION: No acute abnormality identified. THIS IS AN ELECTRONICALLY VERIFIED FINAL REPORT 11/07/2024 3:24 PM - Electronically signed by Piyush DIAZ T: Report ID: [id number] Reading Location: [id number] Procedure Note Piyush Phipps MD - 11/07/2024 EXAM DESCRIPTION: XR CHEST PA LATERAL 2 VIEWS REASON FOR STUDY: cough Pt complains of cough since , worsening last night. History ofasthma. No surgery to heart, lungs, or chest. Non-smoker. TECHNIQUE: Frontal and lateral views of the chest. COMPARISON: None FINDINGS: LUNGS AND PLEURA: No focal airspace opacity, pleural effusion,or pneumothorax identified. HEART/MEDIASTINUM: Trachea midline. Cardiac silhouette normal in size. Mediastinal contours appear normal. BONES: Unremarkable. CHEST WALL: Unremarkable. UPPER ABDOMEN: Moderately elevated right hemidiaphragm. IMPRESSION: No acute abnormality identified. THIS IS AN ELECTRONICALLY VERIFIED FINAL REPORT 11/07/2024 3:24 PM - Electronically signed by Piyush Phipps M.D. 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 us Not In File Miscellaneous IMG XR PROCEDURES Flora l Result Performing Organization Address [facility] Co de Phone Number [facility] * CT Body Outside Reference (10/03/2024 12:00 AM RETAIL RECEIVING CLERK) Narrative [facility] - 10/25/2024 8:10 AM CDT This order has been auto-finalized and does not contain a result. us Not In File Miscellaneous IMG CT PROCEDURES Flora l Result Performing Organization Address [facility] de Phone Number [facility] * XR Outside Reference (10/03/2024 12:00 AM RETAIL RECEIVING CLERK) Narrative [facility] - 10/25/2024 8:10 AM CDT This order has been auto-finalized and does not contain a result. us Not In File Miscellaneous IMG XR PROCEDURES Flora l Result Performing Organization Address [facility] de Phone Number [facility] * XR Outside Reference (09/24/2024 12:00 AM RETAIL RECEIVING CLERK) Narrative [facility] - 10/25/2024 8:10 AM CDT This order has been auto-finalized and does not contain a result. us Not In File Miscellaneous IMG XR PROCEDURES Flora l Result Performing Organization Address [facility] de Phone Number [facility] * CT Body Outside Reference (09/22/2024 12:00 AM RETAIL RECEIVING CLERK) Narrative [facility] - 10/25/2024 8:10 AM CDT This order has been auto-finalized and does not contain a result. us Not In File Miscellaneous IMG CT PROCEDURES Flora l Result Performing Organization Address City/[facility] Co de Phone Number [facility] * XR Outside Reference (09/22/2024 12:00 AM RETAIL RECEIVING CLERK) Narrative [facility] - 10/25/2024 8:10 AM CDT This order has been auto-finalized and does not contain a result. us Not In File Miscellaneous IMG XR PROCEDURES Flora l Result Performing Organization Address [facility] de Phone Number [facility] * POCT hemoglobin A1c (07/13/2024 9:08 AM RETAIL RECEIVING CLERK) Hemoglobin A1C, POC 11.7 4.0 - 5.6 % Blood 07/13/2024 9:08 AM RETAIL RECEIVING CLERK us Shirley CHUN POINT OF CARE TEST ORDERA BLES Final Result * Albumin Creatinine Ratio, Urine (12/29/2023 12:26 PM CDT) Albumin Ur 14.1 mg/L Comment: Interpretive Data No reference range established. Current interpretive data was last revised 2018. Creatinine Ur 117.0 mg/dL [facility] Comment: Interpretive Data No reference range established. Current interpretive data was last revised 2018. Albumin Creatinine Ratio, Ur 12 1 - 29 mg/g [facility] Urine 12/29/2023 12:2 6 PM CDT 12/29/2023 1:04 PM CDT us Shirley CHUN LAB URINE ORDERABLES Flora l Result Performing Organization Address [facility] Co de Phone Number [facility] [place] [address] * (ABNORMAL) Lipid panel (12/29/2023 12:26 PM [...] revised on 2018. Triglycerides 265(H) <=149 mg/dL [facility] Comment: Interpretive Data Ages < [...] on 2018. HDL 87 >=40 mg/dL [facility] Comment: Interpretive Data Ages < [...] 2018. LDL, calculated 68 <=129 mg/dL [facility] Comment: Interpretive Data Ages < [...] 2018. Non-HDL Cholesterol 121 mg/dL [facility] Comment: Interpretive Data Ages < or [...] last revised on 2018. Chol/HDL ratio [address] [facility] Blood 12/29/2023 12:2 6 PM CDT 12/29/2023 1:04 PM CDT Shirley CHUN LAB BLOOD ORDERABLES Flora l Result [facility] Department [place] [address] * Screening Mammogram Bilateral W Vincenzo (12/29/2023 9:26 AM CDT) Anatomical Region Laterality Modality Breast Bilateral Mammography Narrative 12/30/2023 2:01 PM CDT Mammogram Technique: Bilateral Digital Breast Tomosynthesis, Bilateral C-view 2D Screening mammogram. Views obtained: bilateral craniocaudal and bilateral mediolateral oblique. Computer Aided Detection was performed. Mammogram Findings: The present examination has been compared to prior imaging studies performed at [facility] on 01/01/2022 and 02/25/2023, and at [facility]. [place], [place] on 09/12/2020. There are scattered areas [...] compared to prior imaging studies performed at [facility] on 01/01/2022 and 02/25/2023, and at [facility]. [place], [place] on 09/12/2020. There are scattered areas [...] Camacho MD - 04/02/2022 9:28 AM CDT [facility] Patient Name: Camila Huitron Procedure Date: 04/02/2022 9:28 AM Date of : 1975 Admit Type: Outpatient Age: 46 Gender: Female Attending MD: Ad Camacho M.D. Room: [facility] ENDOSCOPY ROOM 2 Note Status: Finalized [...] scope was passed under direct vision. TheColonoscope [id number] was introduced through the anus and advanced [...] 9:28 AM Procedure Code(s): --- Professional --- 52565, Colonoscopy, flexible; with biopsy, single or multiple Diagnosis Code(s): --- Professional --- Z12.11, Encounter for screening for malignant neoplasm of colon D12.3, Benign neoplasm of transverse colon (hepatic flexure orsplenic flexure) D12.4, Benign neoplasm of descending colon D12.8, Benign neoplasm of rectum CPT copyright 2020 [employer]. All rights reserved. The codes documented in this report are preliminary and upon pulverizer reviewmay be revised to meet current compliance requirements. Recognized by the [employer] for promoting quality in endoscopy Ad Camacho MD ENDOSCOPY PROCEDURES Final Resul t * Diabetic Foot Exam (03/26/2021) Impressions Art Staley MA - 03/26/2021 In care everywhere Historical Provider HEALTH MAINTENANCE Final Result from Last 3 Months or Most Recently Relevant to Health Maintenance Insurance [employer] [facility] Advance Directives For more information, please contact: [phone] * Full Code (Latest Code Status on File) Date Activated Date Inactivated Comments 04/02/2022 9:27 AM 04/02/2022 4:47 PM * Full Code Date Activated Date Inactivated Comments 04/02/2022 9:27 AM 04/02/2022 9:27 AM Care Teams Sausage Wrapper Relationship Specialty [place] [address] [facility] [address] [place] [address] PCP - General Internal Medicine 04/06/24 Ann Serrano MD Referring Physician Endocrinology Diabetes & Metabolism 06/08/20
--- OUTSIDE RECORDS SUMMARY | 2024-12-08 17:48 | XMS_ITS | Encounter Summary ---
Author Organization [facility] Address [address] [place] [address] Phone Care Team Providers Care Securities Teller Name Role Phone Kishor Saleh MD Primary Care Provider [phone] Ann Serrano MD Unavailable [phone] No, Physician Primary Care Provider [phone] Kishor Saleh MD Primary Care Provider [phone] Lynn Rodriguez MD Primary Care Provider Encounter Details Date Type Department Care Team (Late st Contact Info) Description 09/30/2017 Orders Only [facility] ProviderStephenie MD [address] [place] [id number] Social History Tobacco Use Types Packs/Day Years Used Date Smoking Tobacco: Never Smokeless Tobacco: Never Alcohol Use Standard Drinks/Week Comments No 0 (1 standard drink = 0.6 oz pur e alcohol) Comments Unknown Sex and Gender Information Value Date Recorded Sex Assigned at Not on file Legal Sex Female 11:54 PM UTILITY BILL COLLECTOR Gender Identity Female 09/19/2020 8:37 AM UTILITY BILL COLLECTOR Sexual Orientation Straight 09/19/2020 8: 37 AM UTILITY BILL COLLECTOR documented as of this encounter Plan of Treatment Not on file documented as of this encounter Procedures Procedure Name Priority Date/Time Associated Diagnosis Comments DISCHARGE LABORATORY CUMULATIVE REPORT 09/30/2017 12:00 AM UTILITY BILL COLLECTOR documented in this encounter Results * DISCHARGE LABORATORY CUMULATIVE REPORT (09/30/2017 12:00 AM UTILITY BILL COLLECTOR) Narrative 09/30/2017 12:00 AM UTILITY BILL COLLECTOR Ordered by an unspecified provider. us Historical Provider LAB BLOOD ORDERABLES Flora l Result documented in this encounter Visit Diagnoses Not on filedocumented in this encounter Additional Health Concerns Infection Onset Date Last Indicated Resolved Time COVID: Suspected 08/13/2022 08/13/2022 08/13/2022 1:16 PM UTILITY BILL COLLECTOR COVID: Suspected 11/07/2024 11/07/2024 11/07/2024 2:20 PM CDT documented as of this encounter Care Teams Securities Teller Relationship Specialty Start Date End Date Kishor Saleh MD PCP - General 09/28/08 11/16/23 No, Physician PCP - General 11/17/23 12/28/23 Kishor Saleh MD [address] [facility] [address], [place] [address] PCP - General Internal Medicine 12/29/23 04/05/24 [place] [address] [facility] [address] [place] [address] PCP - General Internal Medicine 04/06/24 Ann Serrano MD Referring Physician Endocrinology Diabetes & Metabolism 06/08/20 documented as of this encounter
--- OUTSIDE RECORDS SUMMARY | 2024-12-08 17:48 | XMS_ITS | Encounter Summary ---
Author Organization [facility] Healthcare Address [address] [place] [address] Care Team Providers Care Secondary School Teacher Librarian Name Role Phone Ann Serrano MD Unavailable [phone] Lynn Rodriguez MD Primary Care Provider Encounter Details Date Type Department Care Team (Late st Contact Info) Description 11/07/2024 Results Follow-Up [facility] at [address] [address] Karley Rubi, DRILLING FOREMAN [address] [place] [address] [address] [place] [address] Social History Tobacco Use Types Packs/Day Years Used Date Smoking Tobacco: Never Passive Smoke Exposure: Never Smokeless Tobacco: Never Alcohol Use Standard [...] on file Legal Sex Female 11:54 PM CURB HOP Gender Identity Female 09/19/2020 8:37 AM CURB HOP Sexual Orientation Straight 09/19/2020 8: 37 AM CURB HOP documented as of this encounter Plan of Treatment Not on file documented as of this encounter Visit Diagnoses Not on filedocumented in this encounter Additional Health Concerns Infection Onset Date Last Indicated Resolved Time COVID: Suspected 11/07/2024 11/07/2024 11/07/2024 2:20 PM CDT documented as of this encounter Care Teams Secondary School Teacher Librarian Relationship Specialty [place] [address] [facility] [address] [place] [address] PCP - General Internal Medicine 04/06/24 Ann Serrano MD Referring Physician Endocrinology Diabetes & Metabolism 06/08/20 documented as of this encounter
--- OUTSIDE RECORDS SUMMARY | 2024-12-08 17:48 | XMS_ITS | Encounter Summary ---
Author Organization [facility] Health Address [address] [facility] [place] [address] Care Team Providers Care Client Administrator Name Role Phone Tiffany Cox MD Primary Care Provider Unavailable Kishor Saleh MD Primary Care Provider [phone] Encounter Details Date Type Department Care Team (Late st Contact Info) Description 07/03/2023 Lab Requisition [facility] [address] [place] [id number] [place] [address] [facility] [address] [place] [address] [place] [address] Social History Tobacco Use Types Packs/Day Years Used Date Smoking Tobacco: Never Assessed Comments Unknown Sex and Gender Information Value Date Recorded Sex Assigned at Not on file Legal Sex Female 4:50 AM ADMINISTRATIVE DIRECTOR Gender Identity Not on file Sexual Orientation Not on file documented as of this encounter Plan of Treatment Not on file documented as of this encounter Visit Diagnoses Not on filedocumented in this encounter Additional Health Concerns Infection Onset Date Last Indicated Resolved Time COVID-19 Under Investigation 08/13/2024 08/13/2024 08/13/2024 11:30 PM ADMINISTRATIVE DIRECTOR documented as of this encounter Care Teams Client Administrator Relationship Specialty Start Date End Date Tiffany Cox MD PCP - General Internal Medicine 05/16/13 07/30/23 Kishor Saleh MD [address] [place] [address] [address] [place] [address] [place] [address] PCP - General Internal Medicine 07/31/23 documented as of this encounter
--- OUTSIDE RECORDS SUMMARY | 2024-12-08 17:48 | XMS_ITS | Encounter Summary ---
Author Organization [facility] Address [address] [place] [address] Care Team Providers Care Manager Loan Name Role Phone Tiffany Cox MD Primary Care Provider Unavailable Kishor Saleh MD Primary Care Provider [phone] Encounter Details Date Type Department Care Team (Late st Contact Info) Description 07/03/2023 Lab Requisition [facility] - DermPath Lab [address] [place] [address] [place] [id number] [address] Social History Tobacco Use Types Packs/Day Years Used Date Smoking Tobacco: Never Assessed Comments Unknown Sex and Gender Information Value Date Recorded Sex Assigned at Not on file Legal Sex Female 4:50 AM MARINE GEOLOGIST Gender Identity Not on file Sexual Orientation Not on file documented as of this encounter Plan of Treatment Not on file documented as of this encounter Procedures Procedure Name Priority Date/Time Associated Diagnosis Comments IMMUNOFLUORESCENT STUDY DERM Routine 07/01/2023 3:33 AM MARINE GEOLOGIST documented in this encounter Results * IMMUNOFLUORESCENT STUDY DERM (07/01/2023 3:33 AM MARINE GEOLOGIST) Case Report Dermatopathol ogy Report Case: [id number] Authorizing Provider: Kendrick Christopher MD Collected: 07/01/2023 03:33 AM Ordering Location: [facility] DermPath Lab Received: 07/03/2023 12:13 PM Pathologist: Bella Schwab MD Specimen: Skin, right superior han 3:46 PM [facility] DERMATOPATHOLOGY LABORATORY Final Diagnosis Specimen A. SKIN, right superior han: COLLOID BODIES (L98.9) (see microscopic description) (see fixed tissue results) 3:46 PM MARINE GEOLOGIST DERMATOPATHOLOGY LABORATORY Direct Immunofluorescence Report - Specimen A Specimen A IgA IgM IgG C3 CollV Fibrinogen Epidermis Negative Negative Negative Negative Negative Negative Basement Membrane Negative Negative Negative Negative 2+ Negative Vessels Negative Negative Negative Negative 2+ Negative Interstitium Colloid Colloid Colloid Negative Negative Non specific 3 3:46 PM MARINE GEOLOGIST DERMATOPATHOLOGY LABORATORY Clinical History Rash; R/O Leukocytoclas tic Vasculitis, Livedo Reticularis 3:46 PM MARINE GEOLOGIST DERMATOPATHOLOGY LABORATORY Gross Description Specimen A: Received is one Jatinder's media filled container labeled with the patient's name and designated right superior han. The specimen consists of a punch biopsy measuring 5x4x4 mm. The specimen is submitted in whole for direct immunofluores cence testing. 3:46 PM [facility] DERMATOPATHOLOGY LABORATORY Microscopic Description Specimen A. [...] rubbing. See fixed tissue results. 3:46 PM MARINE GEOLOGIST DERMATOPATHOLOGY LABORATORY Disclaimer An external and internal positive and negative controls are appropriate for the histochemical , immunohistoch emical and immunofluores cence stain(s) in this case (if any), except where stated explicitly. The performance characteristi cs of the stain(s) cited in this report were developed and its performance characteristi c determined by the Dermatopathol ogy Laboratory at [facility], directed by Dr. Arnol Perea. These tests need not be, and therefore are not, approved by the [place] Food and Drug Administratio n. The tests are used for clinical purposes. Billing Codes Specimen Charges Stain Charges 28586 06448 [id number] [id number] [id number] 07582 1 1 1 1 1 1 3 3:46 PM MARINE GEOLOGIST DERMATOPATHOLOGY LABORATORY Embedded Images 3 3:46 PM MARINE GEOLOGIST DERMATOPATHOLOGY LABORATORY Pathology/Cytolo gy TISSUE SPECIMEN FROM SKIN / Unknown 07/01/2023 3:33 AM MARINE GEOLOGIST 07/03/2023 12:13 PM MARINE GEOLOGIST Kendrick Christopher MD LAB - PATHOLOGY/CYTOLOGY O RDERABLES Final Result DERMATOPATHOLOGY LABORATORY [facility] - Department of Dermatology [address], [address] [phone] documented in this encounter Visit Diagnoses Not on filedocumented in this encounter Additional Health Concerns Infection Onset Date Last Indicated Resolved Time COVID-19 Under Investigation 08/13/2024 08/13/2024 08/13/2024 11:30 PM MARINE GEOLOGIST documented as of this encounter Care Teams Manager Loan Relationship Specialty Start Date End Date Tiffany Cox MD PCP - General Internal Medicine 05/16/13 07/30/23 Kishor Saleh MD [address] [place] [address] [address] [place] [id number] PCP - General Internal Medicine 07/31/23 documented as of this encounter
--- OUTSIDE RECORDS SUMMARY | 2024-12-08 17:48 | XMS_ITS | Encounter Summary ---
Author Organization [facility] Address [address] [place] [address] Phone Care Team Providers Care Railroad Construction Director Name Role Phone Ann Serrano MD Unavailable [phone] No, Physician Primary Care Provider [phone] Kishor Saleh MD Primary Care Provider [phone] Lynn Rodriguez MD Primary Care Provider Reason for Visit * Reason Onset Date Comments Prior Auth 12/11/2023 Mounjaro 7.5mg/0 .5ml Encounter Details Date Type Department Care Team (Late st Contact Info) Description 12/11/2023 Telephone [facility] Endocrinology Metabolism and Lipid [address] [facility] [address]th [place] [address] [place] [address] Stephanie Sandoval RMA Prior Auth (Mounjaro 7.5mg/0.5ml) Social History Tobacco Use Types Packs/Day Years [...] on file Legal Sex Female 11:54 PM TRACTOR EXPERT Gender Identity Female 09/19/2020 8:37 AM TRACTOR EXPERT Sexual Orientation Straight 09/19/2020 8: 37 AM TRACTOR EXPERT documented as of this encounter Miscellaneous Notes * Telephone Encounter - Janet Taylor V. - 12/06/2024 11:15 AM CDT [place]: [id number] Mounjaro 7.5MG/0.5ML pen-injectors [employer]:[id number] Status:Approved 12/06/2024-12/06/2025 * Telephone Encounter - Shawna Owen - 12/29/2023 10:30 AM CDT [place]: [id number] [employer] Electronic Prior Authorization #[id number] Mounjaro 7.5MG/0.5ML pen-injectors Status: Approved Effective Dates: 12/14/23 to 12/13/24 * Telephone Encounter - Dacia Sandhu RMA - 12/14/2023 7:19 AM CDT [place]: [id number] [employer] Electronic Prior Authorization Mounjaro 7.5MG/0.5ML pen-injectors Status: pending * Telephone Encounter - Stephanie Sandoval RMA - 12/11/2023 4:02 PM CDT Mounjaro 7.5mg/0.5ml [facility] [id number] documented in this encounter Plan of Treatment Not on file documented as of this encounter Visit Diagnoses Not on filedocumented in this encounter Additional Health Concerns Infection Onset Date Last Indicated Resolved Time COVID: Suspected 11/07/2024 11/07/2024 11/07/2024 2:20 PM CDT documented as of this encounter Care Teams Railroad Construction Director Relationship Specialty Start Date End Date No, Physician PCP - General 11/17/23 12/28/23 Kishor Saleh MD [address] [place] [address] PCP - General Internal Medicine 12/29/23 04/05/24 [place] [address] [place] [address] PCP - General Internal Medicine 04/06/24 Ann Serrano MD Referring Physician Endocrinology Diabetes & Metabolism 06/08/20 documented as of this encounter
--- OUTSIDE RECORDS SUMMARY | 2024-12-08 17:48 | XMS_ITS | Encounter Summary ---
Author Organization [facility] Address [address] [facility] [place] [address] Care Team Providers Care Security Checker Name Role Phone Tiffany Cox MD Primary Care Provider Unavailable Kishor Saleh MD Primary Care Provider Encounter Details Date Type Department Care Team (Late st Contact Info) Description 07/03/2023 Lab Requisition [facility] - DermPath Lab [address] [place] [id number] [place] [id number] [facility] [address] [place] [address] Social History Tobacco Use Types Packs/Day Years Used Date Smoking Tobacco: Never Assessed Comments Unknown Sex and Gender Information Value Date Recorded Sex Assigned at Not on file Legal Sex Female 4:50 AM INSULATION CUTTER AND FORMER Gender Identity Not on file Sexual Orientation Not on file documented as of this encounter Plan of Treatment Not on file documented as of this encounter Visit Diagnoses Not on filedocumented in this encounter Additional Health Concerns Infection Onset Date Last Indicated Resolved Time COVID-19 Under Investigation 08/13/2024 08/13/2024 08/13/2024 11:30 PM INSULATION CUTTER AND FORMER documented as of this encounter Care Teams Security Checker Relationship Specialty Start Date End Date Tiffany Cox MD PCP - General Internal Medicine 05/16/13 07/30/23 Kishor Saleh MD [address] [place] [address] DR [address] [place] [id number] PCP - General Internal Medicine 07/31/23 documented as of this encounter
--- OUTSIDE RECORDS SUMMARY | 2024-12-08 17:48 | XMS_ITS | Clinical Summary ---
Author Organization [facility] A Address [address] [place] [address] Care Team Providers Care Avionics Systems Repairer Name Role Phone Ann Serrano MD Unavailable [phone] Lynn Rodriguez MD Primary Care Provider Allergies [...] emergency low blood sugars) 1 each [address] (VOLTAREN) 75 mg EC [...] times daily. 400 each 3 024 Active pen needle, diabetic (Pen Needle) 32 gauge x 5/32 needleIndication s:Uncontrolled type 2 diabetes mellitus with hyperglycemia (HCC) Use to inject insulin up as directed to 5 times daily. 400 each 3 024 Active blood-glucose sensor (Dexcom G7 Sensor) deviceIndication s:Uncontrolled type 2 diabetes mellitus with hyperglycemia (HCC),longterm (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) Use for [...] NEBULIZER EVERY 6 HOURS NEEDED FOR WHEEZING (METER TESTER RECOMMENDS NOT EXCEEDING 4 VIALS/DAY) 150 mL [...] after use. Do not swallow. 1 each 11 Active inhalational spacing device spacer 1 each daily 1 each Active sulfamethoxazole -trimethoprim (BACTRIM DS) 800-160 mg per tablet Take 1 tablet (160 mg of trimethoprim total) by mouth 3 (three) times a week 12 tablet 1 025 2024 Active traMADoL (ULTRAM) 50 mg tablet Take 1 tablet (50 mg total) by mouth every 8 (eight) hours as needed for pain 30 tablet 025 Active Mounjaro 12.5 mg/0.5 mL pen injector injectionIndicat ions:Uncontrolle d type 2 diabetes mellitus with hyperglycemia (HCC),Class 3 severe obesity due to excess calories with serious comorbidity and body mass index (BMI) of 45.0 to 49.9 in adult (HCC) INJECT THE CONTENTS OF ONE PEN SUBCUTANEOUSLY WEEKLY DIRECTED 2 mL 11 025 Active doxycycline (VIBRAMYCIN) 100 mg capsuleIndicatio ns:Acute non-recurrent frontal sinusitis Take 1 tablet/capsule (100 mg total) by mouth 2 (two) times a day for 10 days 20 tablet/cap rudy 025 2024 Active Vitamin D2 1,250 mcg (50,000 unit) capsule TAKE 1 CAPSULE BY MOUTH TWICE WEEKLY 26 capsule 3 025 Active traMADoL (ULTRAM) 50 mg tablet Take [...] 08/13/2024 Assessment & Plan (08/26/2024 6:09 PM DATABASE ADMIN): Recent hospitalization likely for CAP followed by RSV Symptoms resolved Impaired mobility 07/29/2024 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 07/13/2024 longterm 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 user 07/13/2024 Assessment & Plan (07/13/2024 12:22 PM DATABASE ADMIN): - Further complicates diabetes management Need for vaccination 04/06/2024 Assessment & Plan (04/06/2024 4:14 PM CDT): Received pneumonia vaccine today history of pneumonia currently no complaints last bout in 08/2023 Head trauma 09/04/2022 Assessment & Plan (09/04/2022 2:35 PM DATABASE ADMIN): No signs of neurological abnormality on examination [...] booster Assessment & Plan (06/24/2021 3:28 PM DATABASE ADMIN): Pito vaccine 10/05/2020 and Moderna booster Jun 2021 Major depressive disorder 04/22/2021 Assessment & Plan (01/06/2024 9:09 AM CDT): Stable on current medication regimen. Assessment & Plan (01/17/2022 10:21 AM CDT): Stable on current medication regimen. Assessment & Plan (07/17/2021 2:07 PM DATABASE ADMIN): Better controlled on venlafaxine. Assessment & Plan (04/22/2021 8:25 AM CDT): Restart venlafaxine and warned of side effects and call back if any develop or if no improvement. Type 2 diabetes mellitus with hyperlipidemia 06/2020 Assessment & Plan (01/06/2024 9:09 AM CDT): A1c above goal. Will start Mounjaro soon. Continue other medications as directed by her photocopying equipment mechanic. Diet exercise discussed. Hopefully may be able to wean prednisone in the near future as well. Assessment & Plan (06/15/2023 10:48 AM DATABASE ADMIN): She knows that the steroids will exacerbate her hyperglycemia and should be in contact with her photocopying equipment mechanic for management. Assessment & Plan (06/08/2023 5:26 PM DATABASE ADMIN): Poor control of her diabetes prior to this hospitalization and even worse now on prednisone. Follow-up with her photocopying equipment mechanic for management. Diet exercise weight loss recommended. Assessment & Plan (01/21/2023 9:50 AM CDT): Blood sugars remain above goal. Hopefully the recent addition of mounjaro will help significantly. Discuss up titration of this and her mealtime insulin with her photocopying equipment mechanic. Diet exercise discussed. Check A1c and fasting blood sugar before next visit. Assessment & Plan (08/02/2022 12:16 PM DATABASE ADMIN): A1c poorly controlled. Importance of diet exercise weight loss discussed at length. Continue her Ozempic and insulin and needs to contact her photocopying equipment mechanic soon as possible for guidance on further therapy. Assessment & Plan (01/17/2022 10:22 AM CDT): Patient aware A1c grossly uncontrolled. Must work on diet exercise and weight loss. She has to get back on her insulin and should discuss this today with her photocopying equipment mechanic. Risks posed her health with poor glycemic control discussed. Assessment & Plan (07/13/2020 8:34 AM DATABASE ADMIN): A1c above goal. Importance of diet exercise weight loss discussed. Continue current medication regimen and follow-up with her photocopying equipment mechanic as they direct. 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 Unfortunately lab work and skin biopsy inconclusive. Discussed possible rheumatology 2nd opinion here at [facility] and patient will call back if desired. Assessment & Plan (06/15/2023 10:48 AM DATABASE ADMIN): Certainly making a case for underlying vasculitis [...] condition. Assessment & Plan (06/20/2020 9:35 AM DATABASE ADMIN): Unclear etiology but I am thinking of [...] tolerated Assessment & Plan (08/26/2024 6:10 PM DATABASE ADMIN): Body mass index is 49.1 kg/m . BMI Follow-up includes: nutrition counseling, exercise counseling, and education provided. Assessment & Plan (07/13/2024 12:20 PM DATABASE ADMIN): - Increase Mounjaro to 10 mg weekly [...] tolerated. Assessment & Plan (06/08/2023 5:23 PM DATABASE ADMIN): Patient is encouraged to lose weight with a combination of caloric reduction and increased exercise. Various strategies discussed. The long-term risks associated with continued morbid obesity discussed. Assessment & Plan (09/04/2022 2:34 PM DATABASE ADMIN): Patient is encouraged to lose weight with a combination of caloric reduction and increased exercise. Various strategies discussed. The long-term risks associated with continued morbid obesity discussed. Assessment & Plan (08/02/2022 12:16 PM DATABASE ADMIN): Patient is encouraged to lose weight with [...] discussed. Assessment & Plan (07/13/2020 8:34 AM DATABASE ADMIN): Patient is encouraged to lose weight with a combination of caloric reduction and increased exercise. Various strategies discussed. The long-term risks associated with continued morbid obesity discussed. Assessment & Plan (06/20/2020 9:35 AM DATABASE ADMIN): Patient is encouraged to lose weight with a combination of caloric reduction and increased exercise. Various strategies discussed. The long-term risks associated with continued morbid obesity discussed. Assessment & Plan (07/08/2019 8:44 AM DATABASE ADMIN): Patient is encouraged to lose weight with a combination of caloric reduction and increased exercise. Various strategies discussed. The long-term risks associated with continued morbid obesity discussed. Irregular menses 06/03/2019 Allergic rhinitis 07/05/2018 Assessment & Plan (02/23/2023 1:30 PM CDT): Nasal saline spray (Simply saline, Little Remedies, Ethan, Kennedy) 2 second sprays or 2 squeezes into [...] daily Assessment & Plan (07/17/2021 2:07 PM DATABASE ADMIN): Claritin montelukast. Assessment & Plan (04/22/2021 8:25 AM CDT): Currently using Claritin and montelukast. She has not been trying Flonase as her nose is being to congested. Recommended sinus rinses her using a hot warm shower. Could also try Afrin for few days. Assessment & Plan (07/08/2019 8:43 AM DATABASE ADMIN): Add montelukast to her Claritin. She struggles with nasal sprays due to chronic congestion. Assessment & Plan (07/05/2018 9:24 AM DATABASE ADMIN): Try Afrin for 3 days along with [...] mg/dL Assessment & Plan (07/13/2024 12:21 PM DATABASE ADMIN): - Last LDL 103, TG 308, TC [...] triglycerides. Assessment & Plan (09/12/2023 8:12 PM DATABASE ADMIN): Continue statin and optimize glycemic control Assessment & Plan (02/16/2023 8:14 PM CDT): Continue statin and optimize glycemic control Assessment & Plan (01/21/2023 9:50 AM CDT): Continue her atorvastatin and work on diet exercise and check lipids and LFTs before next visit. Assessment & Plan (08/02/2022 12:15 PM DATABASE ADMIN): Well controlled on current therapy and will check a lipid panel and LFTs in 6 months. Assessment & Plan (01/17/2022 10:21 AM CDT): Well controlled on current therapy and will check a lipid panel and LFTs in 6 months. Assessment & Plan (07/17/2021 2:06 PM DATABASE ADMIN): Well controlled on current therapy and will check a lipid panel and LFTs in 6 months. Assessment & Plan (06/24/2021 3:28 PM DATABASE ADMIN): Continue statin and optimize glycemic control Assessment & Plan (12/19/2020 7:53 AM CDT): Continue statin and optimize glycemic control Assessment & Plan (07/13/2020 8:34 AM DATABASE ADMIN): Well controlled on current therapy and will check a lipid panel and LFTs in 6 months. Assessment & Plan (06/08/2020 8:31 AM DATABASE ADMIN): LDL within goal. Continue statin and optimize glycemic control Assessment & Plan (07/08/2019 8:42 AM DATABASE ADMIN): Well controlled on current therapy and will check a lipid panel and LFTs in 12 months. Assessment & Plan (09/01/2018 2:22 PM DATABASE ADMIN): Continue statin, optimize glycemic control Assessment & Plan (07/05/2018 9:23 AM DATABASE ADMIN): Well controlled on current therapy and will check a lipid panel and LFTs in 6 months. Assessment & Plan (08/26/2017 4:27 PM DATABASE ADMIN): Start atorvastatin and check lipids and LFTs in 3-4 months. Call back for results. Vitamin D deficiency 07/02/2017 Assessment & Plan (07/13/2024 12:22 PM DATABASE ADMIN): - Last Vitamin D 42 (12/2023), replete [...] week Assessment & Plan (09/12/2023 8:12 PM DATABASE ADMIN): Continue long-term supplement Assessment & Plan (02/16/2023 8:14 PM CDT): Continue long-term supplement Assessment & Plan (08/02/2022 12:15 PM DATABASE ADMIN): Continue current supplementation and check level in 1 year. Assessment & Plan (07/17/2021 2:06 PM DATABASE ADMIN): Continue current supplementation and check level in 1 year. Assessment & Plan (06/24/2021 3:29 PM DATABASE ADMIN): Continue long-term supplement Assessment & Plan (12/19/2020 7:53 AM CDT): Continue long-term supplement Assessment & Plan (07/13/2020 8:33 AM DATABASE ADMIN): Continue current supplementation and check level in 1 year. Assessment & Plan (06/08/2020 8:31 AM DATABASE ADMIN): Vitamin-D level within goal, continue chronic supplement Assessment & Plan (07/08/2019 8:42 AM DATABASE ADMIN): Continue current supplementation and check level in 1 year. Assessment & Plan (06/03/2019 8:24 AM CDT): Recently ran out of supplement, so we will restart and check her level today. Also check B12 Assessment & Plan (09/01/2018 2:22 PM DATABASE ADMIN): Continue supplement Assessment & Plan (07/05/2018 9:23 AM DATABASE ADMIN): Continue current supplementation and check level in 1 year. Assessment & Plan (08/26/2017 4:26 PM DATABASE ADMIN): Continue current supplementation and check level in [...] Component Value Date HGBA1C 11.7 07/13/2024 Per [place] [employer], goal A1c is less 7% [...] that I am available via phone or [facility] [employer] if they have any concerns for hypo/hyperglycemia, medication refills, etc. Assessment & Plan (08/26/2024 6:10 PM DATABASE ADMIN): Assessment & Plan (07/13/2024 12:20 PM DATABASE ADMIN): - Diabetes is complicated by hyperlipidemia, hypertension, morbid obesity and chronic steroid use. Uncontrolled. Lab Results Component Value Date HGBA1C 11.7 07/13/2024 Per [place], goal A1c is less 7% [...] in prescriptions for both Dexcom G7 and FreeStyle Silva 3 CGM for olivares checking. Also [...] Return visit 3 months to see the CROTCH PIECE BASTER/PA, 6 months to see me. Assessment & [...] Component Value Date HGBA1C 12.5 11/17/2023 Per [place], goal A1c is less 7% [...] Component Value Date HGBA1C 12.5 11/17/2023 Per [place], goal A1c is less 7% [...] etc. Assessment & Plan (09/12/2023 8:13 PM DATABASE ADMIN): Very high glucoses; multifactorial including steroid therapy, [...] daily. Assessment & Plan (06/24/2021 3:29 PM DATABASE ADMIN): Much improved but needs a little more basal insulin. Assessment & Plan (12/19/2020 7:53 AM CDT): Multiple medications, but now requires insulin. We can gradually adjust her Lantus based on her clinical response. Assessment & Plan (06/08/2020 8:32 AM DATABASE ADMIN): Glucoses somewhat better now that she is [...] motivator. Assessment & Plan (07/08/2019 8:43 AM DATABASE ADMIN): Continue increased dose of Ozempic and also continue Invokana. Importance of dietary changes increase exercise weight loss discussed. Follow-up with her photocopying equipment mechanic as they direct. Assessment & Plan (06/03/2019 8:25 AM CDT): Somewhat suboptimal, would benefit from increasing Ozempic and continuing efforts with diet and lifestyle. Needs follow-up labs Assessment & Plan (09/01/2018 2:22 PM DATABASE ADMIN): Glucoses a little high, but she has bruising with Victoza so she may benefit by changing to weekly Ozempic, which is a little stronger, as well. Jardiance is been ineffective, so we may need to provide preauthorization for Invokana Assessment & Plan (07/05/2018 9:23 AM DATABASE ADMIN): A1c above goal. We stressed importance of increased exercise, reduce calories, weight loss. Could consider switching Victoza to ozempic. Otherwise does not tolerate metformin or sulfonylureas. May need insulin soon. She is directed to follow up with her photocopying equipment mechanic more quickly than her next scheduled appointment in November. Assessment & Plan (08/26/2017 4:26 PM DATABASE ADMIN): Continue current medication regimen and follow up with her photocopying equipment mechanic as they direct. Low carb diet weight loss recommended. Check blood sugars once daily. Start atorvastatin and check lipids and LFTs in 3-4 months. Anxiety state 12/17/2013 Overview (11/07/2016): ANXIETY STATE NOS Benign hypertension 12/17/2013 Overview (11/07/2016): BENIGN HYPERTENSION Assessment & Plan (07/13/2024 12:21 PM DATABASE ADMIN): - Above goal today - Encouraged her [...] monitor. Assessment & Plan (06/08/2023 5:25 PM DATABASE ADMIN): Stop amlodipine with current issues of swelling. Pressure currently well controlled and should monitor at home Assessment & Plan (01/21/2023 9:49 AM CDT): Blood pressure well controlled on lisinopril Assessment & Plan (09/04/2022 2:34 PM DATABASE ADMIN): Blood pressure well controlled on her lisinopril. Assessment & Plan (08/02/2022 12:15 PM DATABASE ADMIN): Increase lisinopril to 20 mg daily. Monitor blood pressure at home call back if no improvement. Assessment & Plan (01/17/2022 10:21 AM CDT): Well controlled on the current regimen. Avoidance of salt, proper body weight, and routine exercise recommended. Assessment & Plan (07/17/2021 2:06 PM DATABASE ADMIN): Well controlled on the current regimen. Avoidance of salt, proper body weight, and routine exercise recommended. Assessment & Plan (04/22/2021 8:24 AM CDT): Well controlled on the current regimen. Avoidance of salt, proper body weight, and routine exercise recommended. Assessment & Plan (07/13/2020 8:34 AM DATABASE ADMIN): Well controlled on the current regimen. Avoidance of salt, proper body weight, and routine exercise recommended. Assessment & Plan (07/08/2019 8:42 AM DATABASE ADMIN): Well controlled on the current regimen. Avoidance of salt, proper body weight, and routine exercise recommended. Assessment & Plan (09/01/2018 2:21 PM DATABASE ADMIN): Blood pressure close to target, working on diet and lifestyle Assessment & Plan (07/05/2018 9:23 AM DATABASE ADMIN): Well controlled on the current regimen. Avoidance of salt, proper body weight, and routine exercise recommended. Assessment & Plan (08/26/2017 4:25 PM DATABASE ADMIN): Well controlled on the current regimen. Avoidance of salt, proper body weight, and routine exercise recommended. Anemia 12/29/2012 Extrinsic asthma 08/19/2012 Overview (06/03/2019): Description: frequent flares Assessment & Plan (08/26/2024 6:08 PM DATABASE ADMIN): Recent exacerbation due to CAP followed by RSV Symptoms improved Continue present plan and medication--albuterol prn, montelukast Assessment & Plan (07/13/2020 8:36 AM DATABASE ADMIN): Doing well on her Symbicort. Okay to discontinue and use albuterol only as needed. Restart Symbicort if uses her albuterol more than 2 times a week. Sleep apnea syndrome 04/01/2012 Overview (11/12/2017): Description: CPAP Assessment & Plan (01/06/2024 9:08 AM CDT): Patient is compliant with the CPAP machine and gets symptomatic relief. Assessment & Plan (08/02/2022 12:15 PM DATABASE ADMIN): Patient is compliant with the CPAP machine and gets symptomatic relief. Assessment & Plan (07/17/2021 2:06 PM DATABASE ADMIN): Repeat sleep study confirmed obstructive sleep apnea [...] syndrome. Assessment & Plan (07/13/2020 8:34 AM DATABASE ADMIN): Patient is compliant with the CPAP machine and gets symptomatic relief. Assessment & Plan (07/08/2019 8:42 AM DATABASE ADMIN): Patient is compliant with the CPAP machine [...] legs Assessment & Plan (06/15/2023 10:47 AM DATABASE ADMIN): Improved after addition of doxycycline to her Bactrim. Call back if symptoms worsen after doxycycline runs out Assessment & Plan (06/08/2023 5:25 PM DATABASE ADMIN): Seems like cellulitis slow to improve either [...] yearly. Colonoscopy due March 2027. Follow-up the sock mender for breast exam pelvic exam as they direct. Will see her back in about 6 months sooner if needed. Assessment & Plan (08/02/2022 12:17 PM DATABASE ADMIN): Flu shot each May. Tetanus booster every 10 years. Pneumovax completed. COVID booster recommended. Mammogram yearly. Colonoscopy due March 2027. Follow-up the sock mender for breast exam pelvic exam as they direct. Will see her back in 6 months with lab sooner if needed. Assessment & Plan (07/17/2021 2:08 PM DATABASE ADMIN): Flu shot each May. Tetanus booster every 10 years. Pneumovax completed. COVID vaccine completed. Mammogram yearly. Colonoscopy ordered and she should verify coverage before proceeding. Follow-up the sock mender for breast exam and pelvic exam as they direct. We will see her back in 1 year for physical and fasting lab sooner if needed. Assessment & Plan (07/13/2020 8:35 AM DATABASE ADMIN): Flu shot each May. Tetanus booster every 10 years. She has had a Pneumovax. Mammogram was abnormal back in August and she has delayed follow-up studies until now and she is urged to get her diagnostic and ultrasound studies done at her earliest convenience and she is aware of the risks posed her health with delay in proceeding. Follow-up the sock mender for breast exam and pelvic exam as they direct. We will see her back in 1 year for wellness visit fasting lab sooner if needed. Assessment & Plan (07/08/2019 8:43 AM DATABASE ADMIN): Flu shot each May. Tetanus booster every 10 years. Mammogram ordered. Will see her back in 1 year for physical and fasting lab sooner if needed. Assessment & Plan (07/05/2018 9:24 AM DATABASE ADMIN): Tetanus booster today. Flu shot each May. Mammogram ordered. Patient should follow-up the sock mender breast exam and pelvic exam. We will see her back in 1 year for wellness visit fasting lab sooner if needed. Assessment & Plan (08/26/2017 4:27 PM DATABASE ADMIN): Flu shot each May. Tetanus booster every 10 years. See her sock mender for breast exam mammogram and Pap smear is a direct. We will see her back in 1 year with fasting lab sooner if needed. Morbid obesity 08/26/2017 07/05/2018 Assessment & Plan (08/26/2017 4:28 PM DATABASE ADMIN): Patient is encouraged to lose weight with [...] Description 11/30/2024 3:30 PM CDT Office Visit [facility] at [address] [phone] Minnie House NP Acute non-recurrent frontal sinusitis (Primary Dx) 11/09/2024 7:18 AM CDT - 11/09/2024 11:59 PM CDT Hospital Encounter [facility] [address] [place] [address] Severe persistent asthma without complication (HCC) Discharge Disposition: Discharge to home or self care 11/09/2024 Results Follow-Up [facility] at [address] [place] [phone] Josiah Doan DO Chronic respiratory failure with hypoxia (HCC) (Primary Dx); Hypoxia 11/07/2024 2:30 PM CDT Ancillary Procedure [facility] Imaging at [address] [phone] Wheezing 11/07/2024 2:00 PM CDT Office Visit [facility] at [address] [phone] Karley Rubi NP Sore throat (Primary Dx); Wheezing; History of asthma 11/07/2024 Results Follow-Up [facility] at [address] [phone] Karley Rubi NP 11/01/2024 1:00 PM CDT Office Visit [facility] at [address] [place] [address] Josiah Doan DO Severe persistent asthma without complication (HCC) (Primary Dx); Obstructive sleep apnea; Immunosuppression due to drug therapy; Class 3 severe obesity due to excess calories with serious comorbidity and body mass index (BMI) of 45.0 to 49.9 in adult (HCC) 10/25/2024 Telephone [facility] Endocrinology Metabolism and Lipid [address] [place] [address] [place] [address] Leisa Arenas RN eye exam 10/25/2024 Orders Only [facility] Endocrinology Metabolism and Lipid [address] [place] [address] [place] [address] Stephenie Cruz MD 10/12/2024 9:00 AM CDT Telemedicine [facility] Endocrinology Metabolism and Lipid [address] [place] [address] [place] [address] Shirley Teixeira PA Uncontrolled type 2 diabetes mellitus with hyperglycemia (HCC) (Primary Dx); Mixed hyperlipidemia; Class 3 severe obesity due to excess calories with serious comorbidity and body mass index (BMI) of 45.0 to 49.9 in adult (HCC); 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); terminal worker 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 user 10/07/2024 Ancillary Procedure [facility] 10/03/2024 Ancillary Procedure [facility] 10/03/2024 Ancillary Procedure [facility] 09/24/2024 Ancillary Procedure [facility] 09/22/2024 Ancillary Procedure [facility] 09/22/2024 Ancillary Procedure [facility] from Last 3 Months Immunizations Immunization Administration Dates Next Due Influenza, Quadrivalent, Rosita l Culture-based MDCK, Preservative Free, Antibiotic Free, Intramuscular 05/13/2023,05/23/2022 Influenza, Quadrivalent, Spl it, Intramuscular 05/03/2015 Influenza, Quadrivalent, Spl it, Preservative Free, Intramuscular 05/16/2020,05/07/2018 Influenza, Unspecified 05/16/2021,2020,04/22/2021(Defer red: Patient Refused),03/19/2021(Deferred: Patient Refused),05/12/2019,05/07/2017 [employer] ([employer]) SARS-CoV-2 Vaccination 10/05/2020 Pneumococcal Conjugate Pcv20 04/06/2024 Pneumococcal Polysaccharide PPV23 08/03/2010, Td, adsorbed 07/05/2018 Tdap 10/04/2007 Surgical History Surgery Date Site/Laterality Comments OTHER SURGICAL HISTORY Sleep apnea: CPAP OTHER SURGICAL HISTORY Internal derangement of the knee: knee arthroscopy MYOMECTOMY Myomectomy COLONOSCOPY 04/02/2022 KNEE ARTHROSCOPY W/ LATERAL RELEASE ABDOMINAL SURGERY Medical History Medical History Date Comments Hypertension Hypertension Hx Other Medical Hyperlipidemia; Comments: CLW 04/11/2014 - Hx Other Medical Diabetes; Comme nts: CL 04/11/2014 - Hx Other Medical Seasonal allerg ies; Comments: W 04/11/2014 - Hx Other Medical Sleep apnea; Co mments: [facility] 04/11/2014 - Hx Other Medical 2012 Internal derang ement of the knee; Comments: [facility] 04/11/2014 - Hx Other Medical Depression; Com ments: [facility] 04/11/2014 - Hx Other Medical D and C Hx Other Medical D/C 02/2016 Hx Other Medical R knee meniscal repair 05/2014 Hx Other Medical Large uterine f ibroid resected 04/2015, uterine darby Hx Other Medical IVF transfer 2015 Hx Other Medical 01: Gas Manager -- Dr Estefani Sheikh Morbid obesity (HCC) [...] on file Legal Sex Female 11:54 PM DATABASE ADMIN Gender Identity Female 09/19/2020 8:37 AM DATABASE ADMIN Sexual Orientation Straight 09/19/2020 8: 37 AM DATABASE ADMIN Obstetrics History Para Term AB IAB SAB [...] 11/01/2024 12:56 PM CDT Plan of Treatment Health Maintenance Due Date Last Done Comments Cervical Cancer Screening 1975 Hepatitis C Screening 1975 Hepatitis B Screening 1994 Zoster Vaccine (1 of 2) 1995 Covid-19 Vaccine (5 - 2023-2 5 season) 2024 05/13/2023, 05/23/2022, 06/20/2021, Additional history exists Dilated Eye Exam 11/10/2024 11/10/2022, 03/2022, 04/23/2021, Additional history exists Albumin Creatinine Ratio, Urine 12/28/2024 12/29/2023, 12/29/2023, 07/08/2022, Additional history exists Breast Cancer Screening-Mammogram 12/28/2024 12/29/2023, 02/25/2023, 01/01/2022, Additional history exists Lipid Panel 12/28/2024 12/29/2023, 12/02, 07/08/2022, Additional history exists Regular Well Visit/Exam 18-64 01/04/2025, 07/18/2022, 07/17/2021, Additional history exists Hemoglobin A1C 02/11/2025 08/14/2024, 07/03, 12/29/2023, Additional history exists Influenza Vaccine (Season Ended) 2025 05/13/2023, 05/23/2022, 05/16/2021, Additional history exists Foot Exam 04/06/2025 04/06/2024, 07/03, 03/26/2021, Additional history exists Depression Screening 08/23/2025 08/23/2024, 06/15/2023, 06/08/2023, Additional history exists eGFR 11/09/2025 11/09/2024, 12/02, 07/08/2022, Additional history exists Colon Cancer Screening-Colonoscopy 04/02/20272021 DTaP/Tdap/Td Vaccine (3 - Td or Tdap) [...] OF OUTSIDE FILMS Routine 10/07/2024 12:00 AM DATABASE ADMIN XR TRANSFER OF OUTSIDE FILMS Routine 10/03/2024 12:[address] BODY OUTSIDE REFERENCE Routine 10/03/2024 12:00 AM DATABASE ADMIN XR TRANSFER OF OUTSIDE FILMS Routine 09/24/2024 12:00 AM DATABASE ADMIN XR TRANSFER OF OUTSIDE FILMS Routine 09/22/2024 12:[address] BODY OUTSIDE REFERENCE Routine 09/22/2024 12:00 AM DATABASE ADMIN POCT HEMOGLOBIN A1C Routine 07/13/2024 9:08 AM DATABASE ADMIN Uncontrolled type 2 diabetes mellitus with hyperglycemia [...] CDT) Glucose 300(H) 65 - 139 mg/dL [facility] Comment: Non-fasting reference interval BUN 22 7 - 25 mg/dL [facility] Creatinine 0.77 0.50 - 0.99 mg/dL [facility] eGFR 95 > OR = 60 mL/min/1.7 3m2 [facility] BUN/creat ratio SEE NOTE: 6 - 22 (calc) [facility] Comment: Not Reported: BUN and Creatinine are within reference range. Sodium 137 135 - 146 mmol/L [facility] Potassium, pl 4.8 3.5 - 5.3 mmol/L [facility] Chloride 98 98 - 110 mmol/L [facility] CO2 28 20 - 32 mmol/L [facility] Calcium 10.0 8.6 - 10.2 mg/dL [facility] Blood 11/09/2024 2:14 PM CDT 11/09/2024 2:14 PM CDT Narrative [facility] - 11/10/2024 2:33 AM CDT FASTING:NO FASTING: NO us Josiah Doan DO LAB BLOOD ORDERABLES Flora l Result [facility] [address] [place], [place] [address] * Pulmonary Function Test - (11/09/2024 8:13 AM CDT) Anatomical Region Laterality Modality PFT 11/09/2024 7:23 AM CDT Narrative 11/09/2024 9:27 AM CDT PFT performed at:->[facility] Normal spirometry without obstruction or change post bronchodilator therapy. Lung volumes demonstrate concomitant restrictive ventilatory impairment. DLCO is reduced compatible with diffusion impairment. Findings can be seen with emphysema or other pulmonary vascular or pulmonary parenchymal process. Suggest clinical correlation. Electronically signed by Wallace Mendoza MD, [facility] Critical [facility] Josiah Doan DO PFT ORDERABLES Final Res ult * [...] signed by Piyush DIAZ T: Report ID: [id number] Reading Location: [id number] Procedure Note Piyush Phipps MD - 11/07/2024 [...] Piyush Phipps M.D. AR T: Report ID: [id number] Reading Location: [place] [address] Karley Rubi [employer] IMG XR PROCEDURES Final Re sult * POC Influenza A/B, COVID-19 antigen (11/07/2024 2:18 PM CDT) Pathologist [facility] Influenza A Ag, POC Negative Negative [facility] Influenza B Ag, POC Negative Negative [facility] COVID-19 Ag POC Presumptive Negative Presumptive Negative, Invalid [facility] Nasal 11/07/2024 2:18 PM CDT Karley Rubi NP POINT OF CARE TEST ORDERAB LES Final Result Performing Organization Address City/State/[facility] Co de Phone Number [facility] [address] [place] [address] * POCT rapid strep A (11/07/2024 2:08 PM CDT) Pathologist [facility] Rapid Strep A, POC Negative Negative Swab 11/07/2024 2:08 PM CDT Karley Rubi NP POINT OF CARE TEST ORDERAB LES Final Result * XR Outside Reference (10/07/2024 12:00 AM DATABASE ADMIN) Narrative [facility] - 10/25/2024 8:10 AM CDT This order has been auto-finalized and does not contain a result. Not In File Miscellaneous IMG XR PROCEDURES Flora l Result Performing Organization Address [facility] de Phone Number [email or web address] * CT Body Outside Reference (10/03/2024 12:00 AM DATABASE ADMIN) Narrative [facility] - 10/25/2024 8:10 AM CDT This order has been auto-finalized and does not contain a result. us Not In File Miscellaneous IMG CT PROCEDURES Flora l Result Performing Organization Address [facility] de Phone Number [email or web address] * XR Outside Reference (10/03/2024 12:00 AM DATABASE ADMIN) Narrative [facility] - 10/25/2024 8:10 AM CDT This order has been auto-finalized and does not contain a result. us Not In File Miscellaneous IMG XR PROCEDURES Flora l Result Performing Organization Address [facility] de Phone Number [email or web address] * XR Outside Reference (09/24/2024 12:00 AM DATABASE ADMIN) Narrative [facility] - 10/25/2024 8:10 AM CDT This order has been auto-finalized and does not contain a result. us Not In File Miscellaneous IMG XR PROCEDURES Flora l Result Performing Organization Address [facility] de Phone Number [email or web address] * CT Body Outside Reference (09/22/2024 12:00 AM DATABASE ADMIN) Narrative [facility] - 10/25/2024 8:10 AM CDT This order has been auto-finalized and does not contain a result. us Not In File Miscellaneous IMG CT PROCEDURES Flora l Result Performing Organization Address [facility]/ZIP Co de Phone Number [email or web address] * XR Outside Reference (09/22/2024 12:00 AM DATABASE ADMIN) Narrative [facility] - 10/25/2024 8:10 AM CDT This order has been auto-finalized and does not contain a result. us Not In File Miscellaneous IMG XR PROCEDURES Flora l Result Performing Organization Address [facility] de Phone Number [email or web address] * POCT hemoglobin A1c (07/13/2024 9:08 AM DATABASE ADMIN) Hemoglobin A1C, POC 11.7 4.0 - 5.6 % Blood 07/13/2024 9:08 AM DATABASE ADMIN Shirley CHUN POINT OF CARE TEST ORDERA BLES Final Result * Albumin Creatinine Ratio, Urine (12/29/2023 12:26 PM CDT) Albumin Ur 14.1 mg/L Comment: Interpretive Data No reference range established. Current interpretive data was last revised 2018. Creatinine Ur 117.0 mg/dL [facility] Comment: Interpretive Data No reference range established. Current interpretive data was last revised 2018. Albumin Creatinine Ratio, Ur 12 1 - 29 mg/g [facility] Urine 12/29/2023 12:2 6 PM CDT 12/29/2023 1:04 PM CDT Shirley CHUN LAB URINE ORDERABLES Flora l Result Performing Organization Address [facility] de Phone Number [facility] Department [place] [address] * (ABNORMAL) Lipid panel (12/29/2023 12:26 PM [...] 2018. Triglycerides 265(H) <=149 mg/dL [facility] Comment: Interpretive Data Ages < [...] 2018. HDL 87 >=40 mg/dL [facility] Comment: Interpretive Data Ages < [...] LDL, calculated 68 <=129 mg/dL [facility] Comment: Interpretive Data Ages < [...] on 2018. Non-HDL Cholesterol 121 mg/dL [facility] Comment: Interpretive Data Ages < or [...] last revised on 2018. Chol/HDL ratio 2 [facility] Blood 12/29/2023 12:2 6 PM CDT 12/29/2023 1:04 PM CDT us Shirley CHUN LAB BLOOD ORDERABLES Flora dowd Result [facility] Department [place] [address] * Screening Mammogram Bilateral W Vincenzo (12/29/2023 9:26 AM CDT) Anatomical Region Laterality Modality Breast Bilateral Mammography Narrative 12/30/2023 2:01 PM CDT Mammogram Technique: Bilateral Digital Breast Tomosynthesis, Bilateral C-view 2D Screening mammogram. Views obtained: bilateral craniocaudal and bilateral mediolateral oblique. Computer Aided Detection was performed. Mammogram Findings: The present examination has been compared to prior imaging studies performed at [facility]. [facility] on 01/01/2022 and 02/25/2023, and at [facility]. [place], [place] on 09/12/2020. There are scattered areas [...] compared to prior imaging studies performed at [facility]. [facility] on 01/01/2022 and 02/25/2023, and at [facility]. [place], [place] on 09/12/2020. There are scattered areas of fibroglandular density. There is no suspicious abnormality in either breast. Impression: There is no mammographic evidence of malignancy. Annual screening mammography is recommended. OVERALL FINAL ASSESSMENT: BI-RADS CATEGORY 1: Negative. Kishor Saleh MD IMG MAMMO PROCEDURES Final R esult * Diabetic Eye Exam (11/10/2022) Generic External Data Provider [facility] Final Result * COLONOSCOPY (04/02/2022 9:28 AM CDT) Anatomical Region Laterality Modality Other Narrative Procedure Note Ad Camacho MD - 04/02/2022 9:[address] [facility] Patient Name: Camila Huitron Procedure Date: 04/02/2022 9:28 AM Date of : 1975 Admit Type: Outpatient Age: 46 Gender: Female Attending MD: Ad Camacho M.D. Room: [facility] 2 Note Status: Finalized Patient [...] scope was passed under direct vision. TheColonoscope [id number] was introduced through the anus and advanced [...] normaland showed no anal or rectal abnormalities. Yixi Doug, M.D. 04/02/2022 12:04:38 PM Number of Addenda: 0 Note Initiated On: 04/02/2022 9:28 AM Procedure Code(s): --- Professional --- 13584, Colonoscopy, flexible; with biopsy, single or multiple Diagnosis Code(s): --- Professional --- Z12.11, Encounter for screening for malignant neoplasm of colon D12.3, Benign neoplasm of transverse colon (hepatic flexure orsplenic flexure) D12.4, Benign neoplasm of descending colon D12.8, Benign neoplasm of rectum CPT copyright 2020 [employer]. All rights reserved. The codes documented in this report are preliminary and upon paper guillotine operator reviewmay be revised to meet current compliance requirements. Recognized by the [employer] for promoting quality in endoscopy Ad Camacho MD ENDOSCOPY PROCEDURES Final Resul t * Diabetic Foot Exam (03/26/2021) Impressions Art Staley MA - 03/26/2021 In care everywhere Historical Provider HEALTH MAINTENANCE Final Result from Last 3 Months or Most Recently Relevant to Health Maintenance Insurance [employer] [facility] Advance Directives For more information, please contact: [phone] * Full Code (Latest Code Status on File) Date Activated Date Inactivated Comments 04/02/2022 9:27 AM 04/02/2022 4:47 PM * Full Code Date Activated Date Inactivated Comments 04/02/2022 9:27 AM 04/02/2022 9:27 AM Care Teams [employer] Repairer Relationship Specialty [place] [id number] [address] PCP - General Internal Medicine 04/06/24 Ann Serrano MD Referring Physician Endocrinology Diabetes & Metabolism 06/08/20
--- OUTSIDE RECORDS SUMMARY | 2024-12-08 19:58 | XMS_ITS | Clinical Summary ---
Author Organization [facility] A Address [address] [place] [address] Care Team Providers Care Business Director Name Role Phone Ann Serrano MD Unavailable [phone] Lynn Rodriguez MD Primary Care Provider Allergies [...] s:Uncontrolled type 2 diabetes mellitus with hyperglycemia (HCC),senior care (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) Use for [...] NEBULIZER EVERY 6 HOURS NEEDED FOR WHEEZING (MAIL EXAMINER RECOMMENDS NOT EXCEEDING 4 VIALS/DAY) 150 mL [...] 08/13/2024 Assessment & Plan (08/26/2024 6:09 PM REGISTERED MIDWIFE): Recent hospitalization likely for CAP followed by RSV Symptoms resolved Impaired mobility 07/29/2024 development expert (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 07/13/2024 senior care 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 user 07/13/2024 Assessment & Plan (07/13/2024 12:22 PM REGISTERED MIDWIFE): - Further complicates diabetes management Need for vaccination 04/06/2024 Assessment & Plan (04/06/2024 4:14 PM CDT): Received pneumonia vaccine today history of pneumonia currently no complaints last bout in 08/2023 Head trauma 09/04/2022 Assessment & Plan (09/04/2022 2:35 PM REGISTERED MIDWIFE): No signs of neurological abnormality on examination [...] booster Assessment & Plan (06/24/2021 3:28 PM REGISTERED MIDWIFE): Pito vaccine 10/05/2020 and Moderna booster Jun 2021 Major depressive disorder 04/22/2021 Assessment & Plan (01/06/2024 9:09 AM CDT): Stable on current medication regimen. Assessment & Plan (01/17/2022 10:21 AM CDT): Stable on current medication regimen. Assessment & Plan (07/17/2021 2:07 PM REGISTERED MIDWIFE): Better controlled on venlafaxine. Assessment & Plan (04/22/2021 8:25 AM CDT): Restart venlafaxine and warned of side effects and call back if any develop or if no improvement. Type 2 diabetes mellitus with hyperlipidemia 06/2020 Assessment & Plan (01/06/2024 9:09 AM CDT): A1c above goal. Will start Mounjaro soon. Continue other medications as directed by her correction officer. Diet exercise discussed. Hopefully may be able to wean prednisone in the near future as well. Assessment & Plan (06/15/2023 10:48 AM REGISTERED MIDWIFE): She knows that the steroids will exacerbate her hyperglycemia and should be in contact with her correction officer for management. Assessment & Plan (06/08/2023 5:26 PM REGISTERED MIDWIFE): Poor control of her diabetes prior to this hospitalization and even worse now on prednisone. Follow-up with her correction officer for management. Diet exercise weight loss recommended. Assessment & Plan (01/21/2023 9:50 AM CDT): Blood sugars remain above goal. Hopefully the recent addition of mounjaro will help significantly. Discuss up titration of this and her mealtime insulin with her correction officer. Diet exercise discussed. Check A1c and fasting blood sugar before next visit. Assessment & Plan (08/02/2022 12:16 PM REGISTERED MIDWIFE): A1c poorly controlled. Importance of diet exercise weight loss discussed at length. Continue her Ozempic and insulin and needs to contact her correction officer soon as possible for guidance on further therapy. Assessment & Plan (01/17/2022 10:22 AM CDT): Patient aware A1c grossly uncontrolled. Must work on diet exercise and weight loss. She has to get back on her insulin and should discuss this today with her correction officer. Risks posed her health with poor glycemic control discussed. Assessment & Plan (07/13/2020 8:34 AM REGISTERED MIDWIFE): A1c above goal. Importance of diet exercise weight loss discussed. Continue current medication regimen and follow-up with her correction officer as they direct. 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 Unfortunately lab work and skin biopsy inconclusive. Discussed possible rheumatology 2nd opinion here at [facility] and patient will call back if desired. Assessment & Plan (06/15/2023 10:48 AM REGISTERED MIDWIFE): Certainly making a case for underlying vasculitis [...] condition. Assessment & Plan (06/20/2020 9:35 AM REGISTERED MIDWIFE): Unclear etiology but I am thinking of [...] tolerated Assessment & Plan (08/26/2024 6:10 PM REGISTERED MIDWIFE): Body mass index is 49.1 kg/m . BMI Follow-up includes: nutrition counseling, exercise counseling, and education provided. Assessment & Plan (07/13/2024 12:20 PM REGISTERED MIDWIFE): - Increase Mounjaro to 10 mg weekly [...] tolerated. Assessment & Plan (06/08/2023 5:23 PM REGISTERED MIDWIFE): Patient is encouraged to lose weight with a combination of caloric reduction and increased exercise. Various strategies discussed. The long-term risks associated with continued morbid obesity discussed. Assessment & Plan (09/04/2022 2:34 PM REGISTERED MIDWIFE): Patient is encouraged to lose weight with a combination of caloric reduction and increased exercise. Various strategies discussed. The long-term risks associated with continued morbid obesity discussed. Assessment & Plan (08/02/2022 12:16 PM REGISTERED MIDWIFE): Patient is encouraged to lose weight with [...] discussed. Assessment & Plan (07/13/2020 8:34 AM REGISTERED MIDWIFE): Patient is encouraged to lose weight with a combination of caloric reduction and increased exercise. Various strategies discussed. The long-term risks associated with continued morbid obesity discussed. Assessment & Plan (06/20/2020 9:35 AM REGISTERED MIDWIFE): Patient is encouraged to lose weight with a combination of caloric reduction and increased exercise. Various strategies discussed. The long-term risks associated with continued morbid obesity discussed. Assessment & Plan (07/08/2019 8:44 AM REGISTERED MIDWIFE): Patient is encouraged to lose weight with a combination of caloric reduction and increased exercise. Various strategies discussed. The long-term risks associated with continued morbid obesity discussed. Irregular menses 06/03/2019 Allergic rhinitis 07/05/2018 Assessment & Plan (02/23/2023 1:30 PM CDT): Nasal saline spray (Simply saline, [employer], [place], [place]) 2 second sprays or 2 squeezes into [...] daily Assessment & Plan (07/17/2021 2:07 PM REGISTERED MIDWIFE): Claritin montelukast. Assessment & Plan (04/22/2021 8:25 AM CDT): Currently using Claritin and montelukast. She has not been trying Flonase as her nose is being to congested. Recommended sinus rinses her using a hot warm shower. Could also try Afrin for few days. Assessment & Plan (07/08/2019 8:43 AM REGISTERED MIDWIFE): Add montelukast to her Claritin. She struggles with nasal sprays due to chronic congestion. Assessment & Plan (07/05/2018 9:24 AM REGISTERED MIDWIFE): Try Afrin for 3 days along with [...] mg/dL Assessment & Plan (07/13/2024 12:21 PM REGISTERED MIDWIFE): - Last LDL 103, TG 308, TC [...] triglycerides. Assessment & Plan (09/12/2023 8:12 PM REGISTERED MIDWIFE): Continue statin and optimize glycemic control Assessment & Plan (02/16/2023 8:14 PM CDT): Continue statin and optimize glycemic control Assessment & Plan (01/21/2023 9:50 AM CDT): Continue her atorvastatin and work on diet exercise and check lipids and LFTs before next visit. Assessment & Plan (08/02/2022 12:15 PM REGISTERED MIDWIFE): Well controlled on current therapy and will check a lipid panel and LFTs in 6 months. Assessment & Plan (01/17/2022 10:21 AM CDT): Well controlled on current therapy and will check a lipid panel and LFTs in 6 months. Assessment & Plan (07/17/2021 2:06 PM REGISTERED MIDWIFE): Well controlled on current therapy and will check a lipid panel and LFTs in 6 months. Assessment & Plan (06/24/2021 3:28 PM REGISTERED MIDWIFE): Continue statin and optimize glycemic control Assessment & Plan (12/19/2020 7:53 AM CDT): Continue statin and optimize glycemic control Assessment & Plan (07/13/2020 8:34 AM REGISTERED MIDWIFE): Well controlled on current therapy and will check a lipid panel and LFTs in 6 months. Assessment & Plan (06/08/2020 8:31 AM REGISTERED MIDWIFE): LDL within goal. Continue statin and optimize glycemic control Assessment & Plan (07/08/2019 8:42 AM REGISTERED MIDWIFE): Well controlled on current therapy and will check a lipid panel and LFTs in 12 months. Assessment & Plan (09/01/2018 2:22 PM REGISTERED MIDWIFE): Continue statin, optimize glycemic control Assessment & Plan (07/05/2018 9:23 AM REGISTERED MIDWIFE): Well controlled on current therapy and will check a lipid panel and LFTs in 6 months. Assessment & Plan (08/26/2017 4:27 PM REGISTERED MIDWIFE): Start atorvastatin and check lipids and LFTs in 3-4 months. Call back for results. Vitamin D deficiency 07/02/2017 Assessment & Plan (07/13/2024 12:22 PM REGISTERED MIDWIFE): - Last Vitamin D 42 (12/2023), replete [...] week Assessment & Plan (09/12/2023 8:12 PM REGISTERED MIDWIFE): Continue long-term supplement Assessment & Plan (02/16/2023 8:14 PM CDT): Continue long-term supplement Assessment & Plan (08/02/2022 12:15 PM REGISTERED MIDWIFE): Continue current supplementation and check level in 1 year. Assessment & Plan (07/17/2021 2:06 PM REGISTERED MIDWIFE): Continue current supplementation and check level in 1 year. Assessment & Plan (06/24/2021 3:29 PM REGISTERED MIDWIFE): Continue long-term supplement Assessment & Plan (12/19/2020 7:53 AM CDT): Continue long-term supplement Assessment & Plan (07/13/2020 8:33 AM REGISTERED MIDWIFE): Continue current supplementation and check level in 1 year. Assessment & Plan (06/08/2020 8:31 AM REGISTERED MIDWIFE): Vitamin-D level within goal, continue chronic supplement Assessment & Plan (07/08/2019 8:42 AM REGISTERED MIDWIFE): Continue current supplementation and check level in 1 year. Assessment & Plan (06/03/2019 8:24 AM CDT): Recently ran out of supplement, so we will restart and check her level today. Also check B12 Assessment & Plan (09/01/2018 2:22 PM REGISTERED MIDWIFE): Continue supplement Assessment & Plan (07/05/2018 9:23 AM REGISTERED MIDWIFE): Continue current supplementation and check level in 1 year. Assessment & Plan (08/26/2017 4:26 PM REGISTERED MIDWIFE): Continue current supplementation and check level in [...] Component Value Date HGBA1C 11.7 07/13/2024 Per [place] [employer], goal A1c is less 7% [...] that I am available via phone or wiMANhart if they have any concerns for hypo/hyperglycemia, medication refills, etc. Assessment & Plan (08/26/2024 6:10 PM REGISTERED MIDWIFE): Assessment & Plan (07/13/2024 12:20 PM REGISTERED MIDWIFE): - Diabetes is complicated by hyperlipidemia, hypertension, morbid obesity and chronic steroid use. Uncontrolled. Lab Results Component Value Date HGBA1C 11.7 07/13/2024 Per [place] [employer], goal A1c is less 7% [...] Return visit 3 months to see the JOB PRESS FEEDER/PA, 6 months to see me. Assessment & [...] Component Value Date HGBA1C 12.5 11/17/2023 Per [place] [employer], goal A1c is less 7% [...] Component Value Date HGBA1C 12.5 11/17/2023 Per [place] [employer], goal A1c is less 7% without significant hypoglycemia. - Management Goal: re-start and adherence to medication regimen - Continue current medication regimen at this time. - Patient called local pharmacy to confirm that they do have prescriptions for her Semglee. She is going to filler picker today after this visit. - Insurance [...] etc. Assessment & Plan (09/12/2023 8:13 PM REGISTERED MIDWIFE): Very high glucoses; multifactorial including steroid therapy, [...] daily. Assessment & Plan (06/24/2021 3:29 PM REGISTERED MIDWIFE): Much improved but needs a little more basal insulin. Assessment & Plan (12/19/2020 7:53 AM CDT): Multiple medications, but now requires insulin. We can gradually adjust her Lantus based on her clinical response. Assessment & Plan (06/08/2020 8:32 AM REGISTERED MIDWIFE): Glucoses somewhat better now that she is [...] motivator. Assessment & Plan (07/08/2019 8:43 AM REGISTERED MIDWIFE): Continue increased dose of Ozempic and also continue Invokana. Importance of dietary changes increase exercise weight loss discussed. Follow-up with her correction officer as they direct. Assessment & Plan (06/03/2019 8:25 AM CDT): Somewhat suboptimal, would benefit from increasing Ozempic and continuing efforts with diet and lifestyle. Needs follow-up labs Assessment & Plan (09/01/2018 2:22 PM REGISTERED MIDWIFE): Glucoses a little high, but she has bruising with Victoza so she may benefit by changing to weekly Ozempic, which is a little stronger, as well. Jardiance is been ineffective, so we may need to provide preauthorization for Invokana Assessment & Plan (07/05/2018 9:23 AM REGISTERED MIDWIFE): A1c above goal. We stressed importance of increased exercise, reduce calories, weight loss. Could consider switching Victoza to ozempic. Otherwise does not tolerate metformin or sulfonylureas. May need insulin soon. She is directed to follow up with her correction officer more quickly than her next scheduled appointment in November. Assessment & Plan (08/26/2017 4:26 PM REGISTERED MIDWIFE): Continue current medication regimen and follow up with her correction officer as they direct. Low carb diet weight loss recommended. Check blood sugars once daily. Start atorvastatin and check lipids and LFTs in 3-4 months. Anxiety state 12/17/2013 Overview (11/07/2016): ANXIETY STATE NOS Benign hypertension 12/17/2013 Overview (11/07/2016): BENIGN HYPERTENSION Assessment & Plan (07/13/2024 12:21 PM REGISTERED MIDWIFE): - Above goal today - Encouraged her [...] monitor. Assessment & Plan (06/08/2023 5:25 PM REGISTERED MIDWIFE): Stop amlodipine with current issues of swelling. Pressure currently well controlled and should monitor at home Assessment & Plan (01/21/2023 9:49 AM CDT): Blood pressure well controlled on lisinopril Assessment & Plan (09/04/2022 2:34 PM REGISTERED MIDWIFE): Blood pressure well controlled on her lisinopril. Assessment & Plan (08/02/2022 12:15 PM REGISTERED MIDWIFE): Increase lisinopril to 20 mg daily. Monitor blood pressure at home call back if no improvement. Assessment & Plan (01/17/2022 10:21 AM CDT): Well controlled on the current regimen. Avoidance of salt, proper body weight, and routine exercise recommended. Assessment & Plan (07/17/2021 2:06 PM REGISTERED MIDWIFE): Well controlled on the current regimen. Avoidance of salt, proper body weight, and routine exercise recommended. Assessment & Plan (04/22/2021 8:24 AM CDT): Well controlled on the current regimen. Avoidance of salt, proper body weight, and routine exercise recommended. Assessment & Plan (07/13/2020 8:34 AM REGISTERED MIDWIFE): Well controlled on the current regimen. Avoidance of salt, proper body weight, and routine exercise recommended. Assessment & Plan (07/08/2019 8:42 AM REGISTERED MIDWIFE): Well controlled on the current regimen. Avoidance of salt, proper body weight, and routine exercise recommended. Assessment & Plan (09/01/2018 2:21 PM REGISTERED MIDWIFE): Blood pressure close to target, working on diet and lifestyle Assessment & Plan (07/05/2018 9:23 AM REGISTERED MIDWIFE): Well controlled on the current regimen. Avoidance of salt, proper body weight, and routine exercise recommended. Assessment & Plan (08/26/2017 4:25 PM REGISTERED MIDWIFE): Well controlled on the current regimen. Avoidance of salt, proper body weight, and routine exercise recommended. Anemia 12/29/2012 Extrinsic asthma 08/19/2012 Overview (06/03/2019): Description: frequent flares Assessment & Plan (08/26/2024 6:08 PM REGISTERED MIDWIFE): Recent exacerbation due to CAP followed by RSV Symptoms improved Continue present plan and medication--albuterol prn, montelukast Assessment & Plan (07/13/2020 8:36 AM REGISTERED MIDWIFE): Doing well on her Symbicort. Okay to discontinue and use albuterol only as needed. Restart Symbicort if uses her albuterol more than 2 times a week. Sleep apnea syndrome 04/01/2012 Overview (11/12/2017): Description: CPAP Assessment & Plan (01/06/2024 9:08 AM CDT): Patient is compliant with the CPAP machine and gets symptomatic relief. Assessment & Plan (08/02/2022 12:15 PM REGISTERED MIDWIFE): Patient is compliant with the CPAP machine and gets symptomatic relief. Assessment & Plan (07/17/2021 2:06 PM REGISTERED MIDWIFE): Repeat sleep study confirmed obstructive sleep apnea [...] syndrome. Assessment & Plan (07/13/2020 8:34 AM REGISTERED MIDWIFE): Patient is compliant with the CPAP machine and gets symptomatic relief. Assessment & Plan (07/08/2019 8:42 AM REGISTERED MIDWIFE): Patient is compliant with the CPAP machine [...] legs Assessment & Plan (06/15/2023 10:47 AM REGISTERED MIDWIFE): Improved after addition of doxycycline to her Bactrim. Call back if symptoms worsen after doxycycline runs out Assessment & Plan (06/08/2023 5:25 PM REGISTERED MIDWIFE): Seems like cellulitis slow to improve either [...] yearly. Colonoscopy due March 2027. Follow-up the red cross worker for breast exam pelvic exam as they direct. Will see her back in about 6 months sooner if needed. Assessment & Plan (08/02/2022 12:17 PM REGISTERED MIDWIFE): Flu shot each May. Tetanus booster every 10 years. Pneumovax completed. COVID booster recommended. Mammogram yearly. Colonoscopy due March 2027. Follow-up the red cross worker for breast exam pelvic exam as they direct. Will see her back in 6 months with lab sooner if needed. Assessment & Plan (07/17/2021 2:08 PM REGISTERED MIDWIFE): Flu shot each May. Tetanus booster every 10 years. Pneumovax completed. COVID vaccine completed. Mammogram yearly. Colonoscopy ordered and she should verify coverage before proceeding. Follow-up the red cross worker for breast exam and pelvic exam as they direct. We will see her back in 1 year for physical and fasting lab sooner if needed. Assessment & Plan (07/13/2020 8:35 AM REGISTERED MIDWIFE): Flu shot each May. Tetanus booster every 10 years. She has had a Pneumovax. Mammogram was abnormal back in August and she has delayed follow-up studies until now and she is urged to get her diagnostic and ultrasound studies done at her earliest convenience and she is aware of the risks posed her health with delay in proceeding. Follow-up the red cross worker for breast exam and pelvic exam as they direct. We will see her back in 1 year for wellness visit fasting lab sooner if needed. Assessment & Plan (07/08/2019 8:43 AM REGISTERED MIDWIFE): Flu shot each May. Tetanus booster every 10 years. Mammogram ordered. Will see her back in 1 year for physical and fasting lab sooner if needed. Assessment & Plan (07/05/2018 9:24 AM REGISTERED MIDWIFE): Tetanus booster today. Flu shot each May. Mammogram ordered. Patient should follow-up the red cross worker breast exam and pelvic exam. We will see her back in 1 year for wellness visit fasting lab sooner if needed. Assessment & Plan (08/26/2017 4:27 PM REGISTERED MIDWIFE): Flu shot each May. Tetanus booster every 10 years. See her red cross worker for breast exam mammogram and Pap smear is a direct. We will see her back in 1 year with fasting lab sooner if needed. Morbid obesity 08/26/2017 07/05/2018 Assessment & Plan (08/26/2017 4:28 PM REGISTERED MIDWIFE): Patient is encouraged to lose weight with [...] Description 11/30/2024 3:30 PM CDT Office Visit [facility] at [address] [phone] Minnie House NP Acute non-recurrent frontal sinusitis (Primary Dx) 11/09/2024 7:18 AM CDT - 11/09/2024 11:59 PM CDT Hospital Encounter [facility] [address] [place] [address] Severe persistent asthma without complication (HCC) Discharge Disposition: Discharge to home or self care 11/09/2024 Results Follow-Up [facility] at [address] [place] [phone] Josiah Doan DO Chronic respiratory failure with hypoxia (HCC) (Primary Dx); Hypoxia 11/07/2024 2:30 PM CDT Ancillary Procedure [facility] at [address] [phone] Wheezing 11/07/2024 2:00 PM CDT Office Visit [facility] at [address] [phone] Karley Rubi NP Sore throat (Primary Dx); Wheezing; History of asthma 11/07/2024 Results Follow-Up [facility] at [address] [phone] Karley Rubi NP 11/01/2024 1:00 PM CDT Office Visit [facility] at [address] [place] [address] Josiah Doan DO Severe persistent asthma without complication (HCC) (Primary Dx); Obstructive sleep apnea; Immunosuppression due to drug therapy; Class 3 severe obesity due to excess calories with serious comorbidity and body mass index (BMI) of 45.0 to 49.9 in adult (HCC) 10/25/2024 Telephone [facility] Endocrinology Metabolism and Lipid [address] [place] [address] [place] [address] Leisa Arenas RN eye exam 10/25/2024 Orders Only [facility] Endocrinology Metabolism and Lipid [address] [place] [address] [place] [address] Stephenie Cruz MD 10/12/2024 9:00 AM CDT Telemedicine [facility] Endocrinology Metabolism and Lipid [address] [place] [address] [place] [address] Shirley Teixeira PA Uncontrolled type 2 diabetes mellitus with hyperglycemia (HCC) (Primary Dx); Mixed hyperlipidemia; Class 3 severe obesity due to excess calories with serious comorbidity and body mass index (BMI) of 45.0 to 49.9 in adult (HCC); development expert (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); development expert 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 user 10/07/2024 Ancillary Procedure [facility] [...] Unspecified 05/16/2021,2020,04/22/2021(Defer red: Patient Refused),03/19/2021(Deferred: Patient Refused),05/12/2019,05/07/2017 [employer] ([employer]) SARS-CoV-2 Vaccination 10/05/2020 Pneumococcal Conjugate Pcv20 [...] Hx Other Medical Sleep apnea; Co mments: [facility] 04/11/2014 - Hx Other Medical 2012 Internal derang ement of the knee; Comments: [facility] 04/11/2014 - Hx Other Medical Depression; Com ments: [facility] 04/11/2014 - Hx Other Medical D and C Hx Other Medical D/C 02/2016 Hx Other Medical R knee meniscal repair 05/2014 Hx Other Medical Large uterine f ibroid resected 04/2015, uterine darby Hx Other Medical IVF transfer 2015 Hx Other Medical 01: [employer] Representative -- Dr Estefani Sheikh Morbid obesity (HCC) Hyperlipidemia Type 2 diabetes mellitus (HCC) Sleep apnea Depression Arthritis Family History Medical History Relation Name Comments Cancer Father Adam Skin cancer Father Adam Cancer, skin; Alzheimer's disease Maternal Grandmother Naomi Diabetes Maternal Grandmother Naomi Diabete s; Arthritis Mother Zora Diabetes Mother Zroa Diabetes; Diabetes type II Mother Zora Diabetes [...] on file Legal Sex Female 11:54 PM REGISTERED MIDWIFE Gender Identity Female 09/19/2020 8:37 AM REGISTERED MIDWIFE Sexual Orientation Straight 09/19/2020 8: 37 AM REGISTERED MIDWIFE Obstetrics History Para Term AB IAB SAB [...] OF OUTSIDE FILMS Routine 10/07/2024 12:00 AM REGISTERED MIDWIFE XR TRANSFER OF OUTSIDE FILMS Routine 10/03/2024 12:[address] BODY OUTSIDE REFERENCE Routine 10/03/2024 12:00 AM REGISTERED MIDWIFE XR TRANSFER OF OUTSIDE FILMS Routine 09/24/2024 12:00 AM REGISTERED MIDWIFE XR TRANSFER OF OUTSIDE FILMS Routine 09/22/2024 12:[address] BODY OUTSIDE REFERENCE Routine 09/22/2024 12:00 AM REGISTERED MIDWIFE POCT HEMOGLOBIN A1C Routine 07/13/2024 9:08 AM REGISTERED MIDWIFE Uncontrolled type 2 diabetes mellitus with hyperglycemia [...] Glucose 300(H) 65 - 139 mg/dL [facility] Sno[employer]ad Sheehan Comment: Non-fasting reference interval BUN 22 7 - 25 mg/dL Pilo Sheehan Creatinine 0.77 0.50 - 0.99 mg/dL [facility] SnoobeThad Sheehan eGFR 95 > OR = 60 mL/min/1.7 3m2 Pilo Sheehan BUN/creat ratio SEE NOTE: 6 - 22 (calc) [facility] SnoobeThad Sheehan Comment: Not Reported: BUN and Creatinine are within reference range. Sodium 137 135 - 146 mmol/L [facility] [employer] Sheehan Potassium, pl 4.8 3.5 - 5.3 mmol/L [facility] [employer] LogisticsPaula Sheehan Chloride 98 98 - 110 mmol/L [place] [place] Sheehan CO2 28 20 - 32 mmol/L [place] [employer] ian Sheehan Calcium 10.0 8.6 - 10.2 mg/dL [facility] SnoobeThad Sheehan Blood 11/09/2024 2:14 PM CDT 11/09/2024 2:14 PM CDT Narrative [facility] - 11/10/2024 2:33 AM CDT FASTING:NO FASTING: NO us Josiah Doan DO LAB BLOOD ORDERABLES Flora l Result [facility] [address] [place] [address] * Pulmonary Function Test - (11/09/2024 8:13 AM CDT) Anatomical Region Laterality Modality PFT 11/09/2024 7:23 AM CDT Narrative 11/09/2024 9:27 AM CDT PFT performed at:->[facility] Normal spirometry without obstruction or change post bronchodilator therapy. Lung volumes demonstrate concomitant restrictive ventilatory impairment. DLCO is reduced compatible with diffusion impairment. Findings can be seen with emphysema or other pulmonary vascular or pulmonary parenchymal process. Suggest clinical correlation. Electronically signed by Wallace Mendoza MD, [facility] Josiah Doan DO PFT ORDERABLES [...] signed by Piyush DIAZ T: Report ID: [id number] Reading Location: [id number] Procedure Note Piyush Phipps MD - 11/07/2024 [...] Piyush Phipps M.D. AR T: Report ID: [id number] Reading Location: [place] [address] Karley Rubi JOB [employer]ESS [employer]EDER IMG XR PROCEDURES Final Re sult * POC Influenza A/B, COVID-19 antigen (11/07/2024 2:18 PM CDT) Pathologist [facility] Influenza A Ag, POC Negative Negative [facility] [place] CC EDW Influenza B Ag, POC Negative Negative [facility] COVID-19 Ag POC Presumptive Negative Presumptive Negative, Invalid [facility] CC EDW Nasal 11/07/2024 2:18 PM CDT Karley Rubi NP POINT OF CARE TEST ORDERAB LES Final Result Performing Organization Address City/State/[facility] Co de Phone Number [facility] EDW [address] [place] [address] * POCT rapid strep A (11/07/2024 2:08 PM CDT) Pathologist [facility] Rapid Strep A, POC Negative Negative Swab 11/07/2024 2:08 PM CDT Karley Rubi NP POINT OF CARE TEST ORDERAB LES Final Result * XR Outside Reference (10/07/2024 12:00 AM REGISTERED MIDWIFE) Narrative [facility] - 10/25/2024 8:10 AM CDT This order has been auto-finalized and does not contain a result. Not In File Miscellaneous IMG XR PROCEDURES Flora l Result Performing Organization Address [facility] de Phone Number [facility] * CT Body Outside Reference (10/03/2024 12:00 AM REGISTERED MIDWIFE) Narrative [facility] - 10/25/2024 8:10 AM CDT This order has been auto-finalized and does not contain a result. us Not In File Miscellaneous IMG CT PROCEDURES Flora l Result Performing Organization Address [facility] de Phone Number [facility] * XR Outside Reference (10/03/2024 12:00 AM REGISTERED MIDWIFE) Narrative [facility] - 10/25/2024 8:10 AM CDT This order has been auto-finalized and does not contain a result. us Not In File Miscellaneous IMG XR PROCEDURES Flora l Result Performing Organization Address [facility] de Phone Number [facility] * XR Outside Reference (09/24/2024 12:00 AM REGISTERED MIDWIFE) Narrative [facility] - 10/25/2024 8:10 AM CDT This order has been auto-finalized and does not contain a result. us Not In File Miscellaneous IMG XR PROCEDURES Flora l Result Performing Organization Address [facility] de Phone Number [facility] * CT Body Outside Reference (09/22/2024 12:00 AM REGISTERED MIDWIFE) Narrative [facility] - 10/25/2024 8:10 AM CDT This order has been auto-finalized and does not contain a result. us Not In File Miscellaneous IMG CT PROCEDURES Flora l Result Performing Organization Address [facility]/ZIP Co de Phone Number [facility] * XR Outside Reference (09/22/2024 12:00 AM REGISTERED MIDWIFE) Narrative [facility] - 10/25/2024 8:10 AM CDT This order has been auto-finalized and does not contain a result. us Not In File Miscellaneous IMG XR PROCEDURES Flora l Result Performing Organization Address [facility] de Phone Number [facility] * POCT hemoglobin A1c (07/13/2024 9:08 AM REGISTERED MIDWIFE) Hemoglobin A1C, POC 11.7 4.0 - 5.6 % Blood 07/13/2024 9:08 AM REGISTERED MIDWIFE Shirley CHUN POINT OF CARE TEST ORDERA BLES Final Result * Albumin Creatinine Ratio, Urine (12/29/2023 12:26 PM CDT) Albumin Ur 14.1 mg/L Comment: Interpretive Data No reference range established. Current interpretive data was last revised 2018. Creatinine Ur 117.0 mg/dL [facility] Comment: Interpretive Data No reference range established. Current interpretive data was last revised 2018. Albumin Creatinine Ratio, Ur 12 1 - 29 mg/g [facility] Urine 12/29/2023 12:2 6 PM CDT 12/29/2023 1:04 PM CDT Shirley CHUN LAB URINE ORDERABLES Flora l Result Performing Organization Address [facility] de Phone Number [facility] [place] [address] * (ABNORMAL) Lipid panel (12/29/2023 12:26 PM [...] revised on 2018. Triglycerides 265(H) <=149 mg/dL [facility] Comment: Interpretive Data Ages < or [...] revised on 2018. HDL 87 >=40 mg/dL [facility] Comment: Interpretive Data Ages < or [...] on 2018. LDL, calculated 68 <=129 mg/dL [facility] Comment: Interpretive Data Ages < or [...] on 2018. Non-HDL Cholesterol 121 mg/dL [facility] Comment: Interpretive Data Ages < or [...] last revised on 2018. Chol/HDL ratio 2 [facility] Blood 12/29/2023 12:2 6 PM CDT 12/29/2023 1:04 PM CDT us Shirley CHUN LAB BLOOD ORDERABLES Flora dowd Result [facility] Department [place] [address] * Screening Mammogram Bilateral W Vincenzo (12/29/2023 9:26 AM CDT) Anatomical Region Laterality Modality Breast Bilateral Mammography Narrative 12/30/2023 2:01 PM CDT Mammogram Technique: Bilateral Digital Breast Tomosynthesis, Bilateral C-view 2D Screening mammogram. Views obtained: bilateral craniocaudal and bilateral mediolateral oblique. Computer Aided Detection was performed. Mammogram Findings: The present examination has been compared to prior imaging studies performed at [facility] on 01/01/2022 and 02/25/2023, and at [facility]. [place], [place] on 09/12/2020. There are scattered areas [...] compared to prior imaging studies performed at [facility]. [facility] on 01/01/2022 and 02/25/2023, and at [facility]. [place], [place] on 09/12/2020. There are scattered areas of fibroglandular density. There is no suspicious abnormality in either breast. Impression: There is no mammographic evidence of malignancy. Annual screening mammography is recommended. OVERALL FINAL ASSESSMENT: BI-RADS CATEGORY 1: Negative. Kishor Saleh MD IMG MAMMO PROCEDURES Final R esult * Diabetic Eye Exam (11/10/2022) Generic External Data Provider [facility] MAINTENANC E Final Result * COLONOSCOPY (04/02/2022 9:28 AM CDT) Anatomical Region Laterality Modality Other Narrative Procedure Note Ad Camacho MD - 04/02/2022 9:28 AM CDT [facility] Patient Name: Camila Huitron Procedure Date: 04/02/2022 9:28 AM Date of : 1975 Admit Type: Outpatient Age: 46 Gender: Female Attending MD: Ad Camacho M.D. Room: [facility] ENDOSCOPY ROOM 2 Note Status: [...] scope was passed under direct vision. TheColonoscope [id number] was introduced through the anus and advanced [...] 9:28 AM Procedure Code(s): --- Professional --- 27921, Colonoscopy, flexible; with biopsy, single or multiple Diagnosis Code(s): --- Professional --- Z12.11, Encounter for screening for malignant neoplasm of colon D12.3, Benign neoplasm of transverse colon (hepatic flexure orsplenic flexure) D12.4, Benign neoplasm of descending colon D12.8, Benign neoplasm of rectum CPT copyright 2020 [employer]. All rights reserved. The codes documented in this report are preliminary and upon patternmaker helper reviewmay be revised to meet current compliance requirements. Recognized by the [employer] for promoting quality in endoscopy Ad Camacho MD ENDOSCOPY PROCEDURES Final Resul t * Diabetic Foot Exam (03/26/2021) Impressions Art Staley MA - 03/26/2021 In care everywhere Historical Provider HEALTH MAINTENANCE Final Result from Last 3 Months or Most Recently Relevant to Health Maintenance Insurance [employer] [facility] Advance Directives For more information, please contact: [phone] * Full Code (Latest Code Status on File) Date Activated Date Inactivated Comments 04/02/2022 9:27 AM 04/02/2022 4:47 PM * Full Code Date Activated Date Inactivated Comments 04/02/2022 9:27 AM 04/02/2022 9:27 AM Care Teams Business Director Relationship Specialty [place] [id number] [address] PCP - General Internal Medicine 04/06/24 Ann Serrano MD Referring Physician Endocrinology Diabetes & Metabolism 06/08/20
--- OUTSIDE RECORDS SUMMARY | 2024-12-08 19:58 | XMS_ITS | Referral Summary ---
Author Organization [facility] Building A Address [address] [place] [address] Care Team Providers Care Groundskeeper Porter Name Role Phone Ann Serrano MD Unavailable [phone] Lynn Rodriguez MD Primary Care Provider Encounters Date Type Department Care Team Description 11/30/2024 3:30 PM CDT Office Visit [facility] at [address] [phone] Minnie House NP Acute non-recurrent frontal sinusitis (Primary Dx) 11/09/2024 Results Follow-Up [facility] Pulmonary at [place] [address] [facility] [address] [place] [phone] Josiah Doan DO Chronic respiratory failure with hypoxia (HCC) (Primary Dx); Hypoxia 11/09/2024 7:18 AM CDT - 11/09/2024 11:59 PM CDT Hospital Encounter [facility] [address] [place] [address] Severe persistent asthma without complication (HCC) Discharge Disposition: Discharge to home or self care 11/07/2024 Results Follow-Up [facility] at [address] [phone] Karley Rubi NP 11/07/2024 2:30 PM CDT Ancillary Procedure [facility] Imaging at [address] [phone] Wheezing 11/07/2024 2:00 PM CDT Office Visit [facility] at [address] [phone] Karley Rubi NP Sore throat (Primary Dx); Wheezing; History of asthma 11/01/2024 1:00 PM CDT Office Visit [facility] Pulmonary at [address] [place] [address] Josiah Doan DO Severe persistent asthma without complication (HCC) (Primary Dx); Obstructive sleep apnea; Immunosuppression due to drug therapy; Class 3 severe obesity due to excess calories with serious comorbidity and body mass index (BMI) of 45.0 to 49.9 in adult (HCC) 10/25/2024 Telephone [facility] Endocrinology Metabolism and Lipid [address] [facility] 5th [place] [address] [place] [phone] Leisa Arenas RN eye exam 10/25/2024 Orders Only [facility] Endocrinology Metabolism and Lipid [address] [facility] 13th [place] [address] [place] [phone] Stephenie Cruz MD 10/12/2024 9:00 AM CDT Telemedicine [facility] Endocrinology Metabolism and Lipid [address] [facility] [address] 13th [place] [address] [place] [phone] Shirley Teixeira PA Uncontrolled type 2 diabetes mellitus with hyperglycemia (HCC) (Primary Dx); Mixed hyperlipidemia; Class 3 severe obesity due to excess calories with serious comorbidity and body mass index (BMI) of 45.0 to 49.9 in adult (HCC); intermission coordinator (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); longterm systemic [...] daily. 400 each 3 Active blood-glucose sensor (Metrigocom G7 Sensor) deviceIndication s:Uncontrolled type 2 diabetes [...] NEBULIZER EVERY 6 HOURS NEEDED FOR WHEEZING (PARASITOLOGY TEACHER RECOMMENDS NOT EXCEEDING 4 VIALS/DAY) 150 mL [...] (BMI) of 45.0 to 49.9 in adult ([facility]) INJECT THE CONTENTS OF ONE [...] 08/13/2024 Assessment & Plan (08/26/2024 6:09 PM MACHINIST APPRENTICE): Recent hospitalization likely for CAP followed by RSV Symptoms resolved Impaired mobility 07/29/2024 intermission coordinator (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 07/13/2024 intermission coordinator 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 user 07/13/2024 Assessment & Plan (07/13/2024 12:22 PM MACHINIST APPRENTICE): - Further complicates diabetes management Need for vaccination 04/06/2024 Assessment & Plan (04/06/2024 4:14 PM CDT): Received pneumonia vaccine today history of pneumonia currently no complaints last bout in 08/2023 Head trauma 09/04/2022 Assessment & Plan (09/04/2022 2:35 PM MACHINIST APPRENTICE): No signs of neurological abnormality on examination [...] booster Assessment & Plan (06/24/2021 3:28 PM MACHINIST APPRENTICE): Pito vaccine 10/05/2020 and Moderna booster Jun 2021 Major depressive disorder 04/22/2021 Assessment & Plan (01/06/2024 9:09 AM CDT): Stable on current medication regimen. Assessment & Plan (01/17/2022 10:21 AM CDT): Stable on current medication regimen. Assessment & Plan (07/17/2021 2:07 PM MACHINIST APPRENTICE): Better controlled on venlafaxine. Assessment & Plan (04/22/2021 8:25 AM CDT): Restart venlafaxine and warned of side effects and call back if any develop or if no improvement. Type 2 diabetes mellitus with hyperlipidemia 06/2020 Assessment & Plan (01/06/2024 9:09 AM CDT): A1c above goal. Will start Mounjaro soon. Continue other medications as directed by her chargeback specialist. Diet exercise discussed. Hopefully may be able to wean prednisone in the near future as well. Assessment & Plan (06/15/2023 10:48 AM MACHINIST APPRENTICE): She knows that the steroids will exacerbate her hyperglycemia and should be in contact with her chargeback specialist for management. Assessment & Plan (06/08/2023 5:26 PM MACHINIST APPRENTICE): Poor control of her diabetes prior to this hospitalization and even worse now on prednisone. Follow-up with her chargeback specialist for management. Diet exercise weight loss recommended. Assessment & Plan (01/21/2023 9:50 AM CDT): Blood sugars remain above goal. Hopefully the recent addition of mounjaro will help significantly. Discuss up titration of this and her mealtime insulin with her chargeback specialist. Diet exercise discussed. Check A1c and fasting blood sugar before next visit. Assessment & Plan (08/02/2022 12:16 PM MACHINIST APPRENTICE): A1c poorly controlled. Importance of diet exercise weight loss discussed at length. Continue her Ozempic and insulin and needs to contact her chargeback specialist soon as possible for guidance on further therapy. Assessment & Plan (01/17/2022 10:22 AM CDT): Patient aware A1c grossly uncontrolled. Must work on diet exercise and weight loss. She has to get back on her insulin and should discuss this today with her chargeback specialist. Risks posed her health with poor glycemic control discussed. Assessment & Plan (07/13/2020 8:34 AM MACHINIST APPRENTICE): A1c above goal. Importance of diet exercise weight loss discussed. Continue current medication regimen and follow-up with her chargeback specialist as they direct. 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 Unfortunately lab work and skin biopsy inconclusive. Discussed possible rheumatology 2nd opinion here at [facility] and patient will call back if desired. Assessment & Plan (06/15/2023 10:48 AM MACHINIST APPRENTICE): Certainly making a case for underlying vasculitis [...] condition. Assessment & Plan (06/20/2020 9:35 AM MACHINIST APPRENTICE): Unclear etiology but I am thinking of [...] tolerated Assessment & Plan (08/26/2024 6:10 PM MACHINIST APPRENTICE): Body mass index is 49.1 kg/m . BMI Follow-up includes: nutrition counseling, exercise counseling, and education provided. Assessment & Plan (07/13/2024 12:20 PM MACHINIST APPRENTICE): - Increase Mounjaro to 10 mg weekly [...] tolerated. Assessment & Plan (06/08/2023 5:23 PM MACHINIST APPRENTICE): Patient is encouraged to lose weight with a combination of caloric reduction and increased exercise. Various strategies discussed. The long-term risks associated with continued morbid obesity discussed. Assessment & Plan (09/04/2022 2:34 PM MACHINIST APPRENTICE): Patient is encouraged to lose weight with a combination of caloric reduction and increased exercise. Various strategies discussed. The long-term risks associated with continued morbid obesity discussed. Assessment & Plan (08/02/2022 12:16 PM MACHINIST APPRENTICE): Patient is encouraged to lose weight with [...] discussed. Assessment & Plan (07/13/2020 8:34 AM MACHINIST APPRENTICE): Patient is encouraged to lose weight with a combination of caloric reduction and increased exercise. Various strategies discussed. The long-term risks associated with continued morbid obesity discussed. Assessment & Plan (06/20/2020 9:35 AM MACHINIST APPRENTICE): Patient is encouraged to lose weight with a combination of caloric reduction and increased exercise. Various strategies discussed. The long-term risks associated with continued morbid obesity discussed. Assessment & Plan (07/08/2019 8:44 AM MACHINIST APPRENTICE): Patient is encouraged to lose weight with a combination of caloric reduction and increased exercise. Various strategies discussed. The long-term risks associated with continued morbid obesity discussed. Irregular menses 06/03/2019 Allergic rhinitis 07/05/2018 Assessment & Plan (02/23/2023 1:30 PM CDT): Nasal saline spray (Simply saline, Little Remedies, [place], Joanna) 2 second sprays or 2 squeezes into [...] daily Assessment & Plan (07/17/2021 2:07 PM MACHINIST APPRENTICE): Claritin montelukast. Assessment & Plan (04/22/2021 8:25 AM CDT): Currently using Claritin and montelukast. She has not been trying Flonase as her nose is being to congested. Recommended sinus rinses her using a hot warm shower. Could also try Afrin for few days. Assessment & Plan (07/08/2019 8:43 AM MACHINIST APPRENTICE): Add montelukast to her Claritin. She struggles with nasal sprays due to chronic congestion. Assessment & Plan (07/05/2018 9:24 AM MACHINIST APPRENTICE): Try Afrin for 3 days along with [...] mg/dL Assessment & Plan (07/13/2024 12:21 PM MACHINIST APPRENTICE): - Last LDL 103, TG 308, TC [...] triglycerides. Assessment & Plan (09/12/2023 8:12 PM MACHINIST APPRENTICE): Continue statin and optimize glycemic control Assessment & Plan (02/16/2023 8:14 PM CDT): Continue statin and optimize glycemic control Assessment & Plan (01/21/2023 9:50 AM CDT): Continue her atorvastatin and work on diet exercise and check lipids and LFTs before next visit. Assessment & Plan (08/02/2022 12:15 PM MACHINIST APPRENTICE): Well controlled on current therapy and will check a lipid panel and LFTs in 6 months. Assessment & Plan (01/17/2022 10:21 AM CDT): Well controlled on current therapy and will check a lipid panel and LFTs in 6 months. Assessment & Plan (07/17/2021 2:06 PM MACHINIST APPRENTICE): Well controlled on current therapy and will check a lipid panel and LFTs in 6 months. Assessment & Plan (06/24/2021 3:28 PM MACHINIST APPRENTICE): Continue statin and optimize glycemic control Assessment & Plan (12/19/2020 7:53 AM CDT): Continue statin and optimize glycemic control Assessment & Plan (07/13/2020 8:34 AM MACHINIST APPRENTICE): Well controlled on current therapy and will check a lipid panel and LFTs in 6 months. Assessment & Plan (06/08/2020 8:31 AM MACHINIST APPRENTICE): LDL within goal. Continue statin and optimize glycemic control Assessment & Plan (07/08/2019 8:42 AM MACHINIST APPRENTICE): Well controlled on current therapy and will check a lipid panel and LFTs in 12 months. Assessment & Plan (09/01/2018 2:22 PM MACHINIST APPRENTICE): Continue statin, optimize glycemic control Assessment & Plan (07/05/2018 9:23 AM MACHINIST APPRENTICE): Well controlled on current therapy and will check a lipid panel and LFTs in 6 months. Assessment & Plan (08/26/2017 4:27 PM MACHINIST APPRENTICE): Start atorvastatin and check lipids and LFTs in 3-4 months. Call back for results. Vitamin D deficiency 07/02/2017 Assessment & Plan (07/13/2024 12:22 PM MACHINIST APPRENTICE): - Last Vitamin D 42 (12/2023), replete [...] week Assessment & Plan (09/12/2023 8:12 PM MACHINIST APPRENTICE): Continue long-term supplement Assessment & Plan (02/16/2023 8:14 PM CDT): Continue long-term supplement Assessment & Plan (08/02/2022 12:15 PM MACHINIST APPRENTICE): Continue current supplementation and check level in 1 year. Assessment & Plan (07/17/2021 2:06 PM MACHINIST APPRENTICE): Continue current supplementation and check level in 1 year. Assessment & Plan (06/24/2021 3:29 PM MACHINIST APPRENTICE): Continue long-term supplement Assessment & Plan (12/19/2020 7:53 AM CDT): Continue long-term supplement Assessment & Plan (07/13/2020 8:33 AM MACHINIST APPRENTICE): Continue current supplementation and check level in 1 year. Assessment & Plan (06/08/2020 8:31 AM MACHINIST APPRENTICE): Vitamin-D level within goal, continue chronic supplement Assessment & Plan (07/08/2019 8:42 AM MACHINIST APPRENTICE): Continue current supplementation and check level in 1 year. Assessment & Plan (06/03/2019 8:24 AM CDT): Recently ran out of supplement, so we will restart and check her level today. Also check B12 Assessment & Plan (09/01/2018 2:22 PM MACHINIST APPRENTICE): Continue supplement Assessment & Plan (07/05/2018 9:23 AM MACHINIST APPRENTICE): Continue current supplementation and check level in 1 year. Assessment & Plan (08/26/2017 4:26 PM MACHINIST APPRENTICE): Continue current supplementation and check level in [...] Component Value Date HGBA1C 11.7 07/13/2024 Per [place] [employer], goal A1c is less 7% [...] that I am available via phone or Cura TV[employer] if they have any concerns for hypo/hyperglycemia, medication refills, etc. Assessment & Plan (08/26/2024 6:10 PM MACHINIST APPRENTICE): Assessment & Plan (07/13/2024 12:20 PM MACHINIST APPRENTICE): - Diabetes is complicated by hyperlipidemia, hypertension, morbid obesity and chronic steroid use. Uncontrolled. Lab Results Component Value Date HGBA1C 11.7 07/13/2024 Per [place] [employer], goal A1c is less 7% [...] in prescriptions for both Dexcom G7 and Flimmer Silva 3 CGM for olivares checking. Also [...] that I am available via phone or Cura TVhart if they have any concerns for hypo/hyperglycemia, [...] Return visit 3 months to see the GLUE JOINTER OPERATOR/PA, 6 months to see me. Assessment & [...] Component Value Date HGBA1C 12.5 11/17/2023 Per [place] [employer], goal A1c is less 7% [...] that I am available via phone or Cura TVhart if they have any concerns for hypo/hyperglycemia, medication refills, etc. Assessment & Plan (11/18/2023 8:23 AM CDT): - Diabetes is complicated by HTN, HLD, steroid use, hyperglycemia and obesity. Uncontrolled. Lab Results Component Value Date HGBA1C 12.5 11/17/2023 Per [place] [employer], goal A1c is less 7% without significant hypoglycemia. - Management Goal: re-start and adherence to medication regimen - Continue current medication regimen at this time. - Patient called local pharmacy to confirm that they do have prescriptions for her Semglee. She is going to pickling drum operator today after this visit. - Insurance does [...] etc. Assessment & Plan (09/12/2023 8:13 PM MACHINIST APPRENTICE): Very high glucoses; multifactorial including steroid therapy, [...] daily. Assessment & Plan (06/24/2021 3:29 PM MACHINIST APPRENTICE): Much improved but needs a little more basal insulin. Assessment & Plan (12/19/2020 7:53 AM CDT): Multiple medications, but now requires insulin. We can gradually adjust her Lantus based on her clinical response. Assessment & Plan (06/08/2020 8:32 AM MACHINIST APPRENTICE): Glucoses somewhat better now that she is [...] motivator. Assessment & Plan (07/08/2019 8:43 AM MACHINIST APPRENTICE): Continue increased dose of Ozempic and also continue Invokana. Importance of dietary changes increase exercise weight loss discussed. Follow-up with her chargeback specialist as they direct. Assessment & Plan (06/03/2019 8:25 AM CDT): Somewhat suboptimal, would benefit from increasing Ozempic and continuing efforts with diet and lifestyle. Needs follow-up labs Assessment & Plan (09/01/2018 2:22 PM MACHINIST APPRENTICE): Glucoses a little high, but she has bruising with Victoza so she may benefit by changing to weekly Ozempic, which is a little stronger, as well. Jardiance is been ineffective, so we may need to provide preauthorization for Invokana Assessment & Plan (07/05/2018 9:23 AM MACHINIST APPRENTICE): A1c above goal. We stressed importance of increased exercise, reduce calories, weight loss. Could consider switching Victoza to ozempic. Otherwise does not tolerate metformin or sulfonylureas. May need insulin soon. She is directed to follow up with her chargeback specialist more quickly than her next scheduled appointment in November. Assessment & Plan (08/26/2017 4:26 PM MACHINIST APPRENTICE): Continue current medication regimen and follow up with her chargeback specialist as they direct. Low carb diet weight loss recommended. Check blood sugars once daily. Start atorvastatin and check lipids and LFTs in 3-4 months. Anxiety state 12/17/2013 Overview (11/07/2016): ANXIETY STATE NOS Benign hypertension 12/17/2013 Overview (11/07/2016): BENIGN HYPERTENSION Assessment & Plan (07/13/2024 12:21 PM MACHINIST APPRENTICE): - Above goal today - Encouraged her [...] monitor. Assessment & Plan (06/08/2023 5:25 PM MACHINIST APPRENTICE): Stop amlodipine with current issues of swelling. Pressure currently well controlled and should monitor at home Assessment & Plan (01/21/2023 9:49 AM CDT): Blood pressure well controlled on lisinopril Assessment & Plan (09/04/2022 2:34 PM MACHINIST APPRENTICE): Blood pressure well controlled on her lisinopril. Assessment & Plan (08/02/2022 12:15 PM MACHINIST APPRENTICE): Increase lisinopril to 20 mg daily. Monitor blood pressure at home call back if no improvement. Assessment & Plan (01/17/2022 10:21 AM CDT): Well controlled on the current regimen. Avoidance of salt, proper body weight, and routine exercise recommended. Assessment & Plan (07/17/2021 2:06 PM MACHINIST APPRENTICE): Well controlled on the current regimen. Avoidance of salt, proper body weight, and routine exercise recommended. Assessment & Plan (04/22/2021 8:24 AM CDT): Well controlled on the current regimen. Avoidance of salt, proper body weight, and routine exercise recommended. Assessment & Plan (07/13/2020 8:34 AM MACHINIST APPRENTICE): Well controlled on the current regimen. Avoidance of salt, proper body weight, and routine exercise recommended. Assessment & Plan (07/08/2019 8:42 AM MACHINIST APPRENTICE): Well controlled on the current regimen. Avoidance of salt, proper body weight, and routine exercise recommended. Assessment & Plan (09/01/2018 2:21 PM MACHINIST APPRENTICE): Blood pressure close to target, working on diet and lifestyle Assessment & Plan (07/05/2018 9:23 AM MACHINIST APPRENTICE): Well controlled on the current regimen. Avoidance of salt, proper body weight, and routine exercise recommended. Assessment & Plan (08/26/2017 4:25 PM MACHINIST APPRENTICE): Well controlled on the current regimen. Avoidance of salt, proper body weight, and routine exercise recommended. Anemia 12/29/2012 Extrinsic asthma 08/19/2012 Overview (06/03/2019): Description: frequent flares Assessment & Plan (08/26/2024 6:08 PM MACHINIST APPRENTICE): Recent exacerbation due to CAP followed by RSV Symptoms improved Continue present plan and medication--albuterol prn, montelukast Assessment & Plan (07/13/2020 8:36 AM MACHINIST APPRENTICE): Doing well on her Symbicort. Okay to discontinue and use albuterol only as needed. Restart Symbicort if uses her albuterol more than 2 times a week. Sleep apnea syndrome 04/01/2012 Overview (11/12/2017): Description: CPAP Assessment & Plan (01/06/2024 9:08 AM CDT): Patient is compliant with the CPAP machine and gets symptomatic relief. Assessment & Plan (08/02/2022 12:15 PM MACHINIST APPRENTICE): Patient is compliant with the CPAP machine and gets symptomatic relief. Assessment & Plan (07/17/2021 2:06 PM MACHINIST APPRENTICE): Repeat sleep study confirmed obstructive sleep apnea [...] syndrome. Assessment & Plan (07/13/2020 8:34 AM MACHINIST APPRENTICE): Patient is compliant with the CPAP machine and gets symptomatic relief. Assessment & Plan (07/08/2019 8:42 AM MACHINIST APPRENTICE): Patient is compliant with the CPAP machine [...] legs Assessment & Plan (06/15/2023 10:47 AM MACHINIST APPRENTICE): Improved after addition of doxycycline to her Bactrim. Call back if symptoms worsen after doxycycline runs out Assessment & Plan (06/08/2023 5:25 PM MACHINIST APPRENTICE): Seems like cellulitis slow to improve either [...] yearly. Colonoscopy due March 2027. Follow-up the director camp for breast exam pelvic exam as they direct. Will see her back in about 6 months sooner if needed. Assessment & Plan (08/02/2022 12:17 PM MACHINIST APPRENTICE): Flu shot each May. Tetanus booster every 10 years. Pneumovax completed. COVID booster recommended. Mammogram yearly. Colonoscopy due March 2027. Follow-up the director camp for breast exam pelvic exam as they direct. Will see her back in 6 months with lab sooner if needed. Assessment & Plan (07/17/2021 2:08 PM MACHINIST APPRENTICE): Flu shot each May. Tetanus booster every 10 years. Pneumovax completed. COVID vaccine completed. Mammogram yearly. Colonoscopy ordered and she should verify coverage before proceeding. Follow-up the director camp for breast exam and pelvic exam as they direct. We will see her back in 1 year for physical and fasting lab sooner if needed. Assessment & Plan (07/13/2020 8:35 AM MACHINIST APPRENTICE): Flu shot each May. Tetanus booster every 10 years. She has had a Pneumovax. Mammogram was abnormal back in August and she has delayed follow-up studies until now and she is urged to get her diagnostic and ultrasound studies done at her earliest convenience and she is aware of the risks posed her health with delay in proceeding. Follow-up the director camp for breast exam and pelvic exam as they direct. We will see her back in 1 year for wellness visit fasting lab sooner if needed. Assessment & Plan (07/08/2019 8:43 AM MACHINIST APPRENTICE): Flu shot each May. Tetanus booster every 10 years. Mammogram ordered. Will see her back in 1 year for physical and fasting lab sooner if needed. Assessment & Plan (07/05/2018 9:24 AM MACHINIST APPRENTICE): Tetanus booster today. Flu shot each May. Mammogram ordered. Patient should follow-up the director camp breast exam and pelvic exam. We will see her back in 1 year for wellness visit fasting lab sooner if needed. Assessment & Plan (08/26/2017 4:27 PM MACHINIST APPRENTICE): Flu shot each May. Tetanus booster every 10 years. See her director camp for breast exam mammogram and Pap smear is a direct. We will see her back in 1 year with fasting lab sooner if needed. Morbid obesity 08/26/2017 07/05/2018 Assessment & Plan (08/26/2017 4:28 PM MACHINIST APPRENTICE): Patient is encouraged to lose weight with [...] Unspecified 05/16/2021,2020,04/22/2021(Defer red: Patient Refused),03/19/2021(Deferred: Patient Refused),05/12/2019,05/07/2017 Diffon (J&J) SARS-CoV-2 Vaccination 10/05/2020 Pneumococcal Conjugate Pcv20 [...] on file Legal Sex Female 11:54 PM MACHINIST APPRENTICE Gender Identity Female 09/19/2020 8:37 AM MACHINIST APPRENTICE Sexual Orientation Straight 09/19/2020 8: 37 AM MACHINIST APPRENTICE Last Filed Vital Signs Vital Sign Reading [...] OF OUTSIDE FILMS Routine 10/07/2024 12:00 AM MACHINIST APPRENTICE XR TRANSFER OF OUTSIDE FILMS Routine 10/03/2024 12:[address] BODY OUTSIDE REFERENCE Routine 10/03/2024 12:00 AM MACHINIST APPRENTICE XR TRANSFER OF OUTSIDE FILMS Routine 09/24/2024 12:00 AM MACHINIST APPRENTICE XR TRANSFER OF OUTSIDE FILMS Routine 09/22/2024 12:[address] BODY OUTSIDE REFERENCE Routine 09/22/2024 12:00 AM MACHINIST APPRENTICE POCT HEMOGLOBIN A1C Routine 07/13/2024 9:08 AM MACHINIST APPRENTICE Uncontrolled type 2 diabetes mellitus with hyperglycemia [...] Glucose 300(H) 65 - 139 mg/dL Aleshia [facility] Plus[facility]ad Sheehan Comment: Non-fasting reference interval BUN 22 7 - 25 mg/dL Aleshia [email or web address] [email or web address] Creatinine 0.77 0.50 - 0.99 mg/dL Aleshia Senior[facility]ula Sheehan eGFR 95 > OR = 60 mL/min/1.7 3m2 Aleshia Sheehan BUN/creat ratio SEE NOTE: 6 - 22 (calc) Aleshia [place]-Paula Sheehan Comment: Not Reported: BUN and Creatinine are within reference range. Sodium 137 135 - 146 mmol/L Aleshia [email or web address] Sheehan Potassium, pl 4.8 3.5 - 5.3 mmol/L Aleshia [email or web address] Sheehan Chloride 98 98 - 110 mmol/L Aleshia [email or web address] Sheehan CO2 28 20 - 32 mmol/L Aleshia SeniorlinkS ian Sheehan Calcium 10.0 8.6 - 10.2 mg/dL Aleshia SeniorlinkPaula Sheehan Blood 11/09/2024 2:14 PM CDT 11/09/2024 2:14 PM CDT Narrative [facility] - 11/10/2024 2:33 AM CDT FASTING:NO FASTING: NO Josiah Doan DO LAB BLOOD ORDERABLES Flora dowd Result [facility] [address] [place], [place] [address] * Pulmonary Function Test - (11/09/2024 8:13 AM CDT) Anatomical Region Laterality Modality PFT 11/09/2024 7:23 AM CDT Narrative 11/09/2024 9:27 AM CDT PFT performed at:->[facility] Normal spirometry without obstruction or change post bronchodilator therapy. Lung volumes demonstrate concomitant restrictive ventilatory impairment. DLCO is reduced compatible with diffusion impairment. Findings can be seen with emphysema or other pulmonary vascular or pulmonary parenchymal process. Suggest clinical correlation. Electronically signed by Wallace Mendoza MD, [facility] Pul[facility] Critical [facility] Medicine [facility] Josiah Lucian Franki DO [...] signed by Piyush DIAZ T: Report ID: [id number] Reading Location: [id number] Procedure Note Piyush Phipps MD - 11/07/2024 [...] Piyush Phipps M.D. AR T: Report ID: [id number] Reading Location: [place] [address] Karley Rubi GLUE JOINTER OPERATOR IMG XR PROCEDURES Final Re sult * POC Influenza A/B, COVID-19 antigen (11/07/2024 2:18 PM CDT) Influenza A Ag, POC Negative Negative [facility] Influenza B Ag, POC Negative Negative [facility] COVID-19 Ag POC Presumptive Negative Presumptive Negative, Invalid [facility] Nasal 11/07/2024 2:18 PM CDT Karley Rubi GLUE JOINTER OPERATOR POINT OF CARE TEST ORDERAB LES Final Result [facility] [address] [place] [address] * POCT rapid strep A (11/07/2024 2:08 PM CDT) Rapid Strep A, POC Negative Negative Swab 11/07/2024 2:08 PM CDT us Karley Rubi NP POINT OF CARE TEST ORDERAB LES Final Result * XR Outside Reference (10/07/2024 12:00 AM MACHINIST APPRENTICE) Narrative [facility] - 10/25/2024 8:10 AM CDT This order has been auto-finalized and does not contain a result. us Not In File Miscellaneous IMG XR PROCEDURES Flora l Result Performing Organization Address [facility] Co de Phone Number [facility] * CT Body Outside Reference (10/03/2024 12:00 AM MACHINIST APPRENTICE) Narrative [facility] - 10/25/2024 8:10 AM CDT This order has been auto-finalized and does not contain a result. us Not In File Miscellaneous IMG CT PROCEDURES Flora l Result Performing Organization Address [facility] de Phone Number [facility] * XR Outside Reference (10/03/2024 12:00 AM MACHINIST APPRENTICE) Narrative [facility] - 10/25/2024 8:10 AM CDT This order has been auto-finalized and does not contain a result. us Not In File Miscellaneous IMG XR PROCEDURES Flora l Result Performing Organization Address [facility] de Phone Number [facility] * XR Outside Reference (09/24/2024 12:00 AM MACHINIST APPRENTICE) Narrative [facility] - 10/25/2024 8:10 AM CDT This order has been auto-finalized and does not contain a result. us Not In File Miscellaneous IMG XR PROCEDURES Flora l Result Performing Organization Address [facility] de Phone Number [facility] * CT Body Outside Reference (09/22/2024 12:00 AM MACHINIST APPRENTICE) Narrative [facility] - 10/25/2024 8:10 AM CDT This order has been auto-finalized and does not contain a result. us Not In File Miscellaneous IMG CT PROCEDURES Flora l Result Performing Organization Address [facility] Co de Phone Number [facility] * XR Outside Reference (09/22/2024 12:00 AM MACHINIST APPRENTICE) Narrative [facility] - 10/25/2024 8:10 AM CDT This order has been auto-finalized and does not contain a result. us Not In File Miscellaneous IMG XR PROCEDURES Flora l Result Performing Organization Address [facility] de Phone Number [facility] * POCT hemoglobin A1c (07/13/2024 9:08 AM MACHINIST APPRENTICE) Hemoglobin A1C, POC 11.7 4.0 - 5.6 % Blood 07/13/2024 9:08 AM MACHINIST APPRENTICE us Shirley CHUN POINT OF CARE TEST ORDERA BLES Final Result * Albumin Creatinine Ratio, Urine (12/29/2023 12:26 PM CDT) Albumin Ur 14.1 mg/L Comment: Interpretive Data No reference range established. Current interpretive data was last revised 2018. Creatinine Ur 117.0 mg/dL [facility] Comment: Interpretive Data No reference range established. Current interpretive data was last revised 2018. Albumin Creatinine Ratio, Ur 12 1 - 29 mg/g [facility] Urine 12/29/2023 12:2 6 PM CDT 12/29/2023 1:04 PM CDT us Shirley CHUN LAB URINE ORDERABLES Flora l Result Performing Organization Address [facility] Co de Phone Number [facility] [place] [address] * (ABNORMAL) Lipid panel (12/29/2023 12:26 PM [...] revised on 2018. Triglycerides 265(H) <=149 mg/dL [facility] Comment: Interpretive Data Ages < or [...] on 2018. HDL 87 >=40 mg/dL [facility] Comment: Interpretive Data Ages < or [...] 2018. LDL, calculated 68 <=129 mg/dL [facility] Comment: Interpretive Data Ages < or [...] revised on 2018. Non-HDL Cholesterol 121 mg/dL [facility] Comment: Interpretive Data Ages < [...] last revised on 2018. Chol/HDL ratio 2 [facility] Blood 12/29/2023 12:2 6 PM CDT 12/29/2023 1:04 PM CDT Shirley CHNU LAB BLOOD ORDERABLES Flora l Result [facility] Department [place] [address] * Screening Mammogram Bilateral W Vincenzo (12/29/2023 9:26 AM CDT) Anatomical Region Laterality Modality Breast Bilateral Mammography Narrative 12/30/2023 2:01 PM CDT Mammogram Technique: Bilateral Digital Breast Tomosynthesis, Bilateral C-view 2D Screening mammogram. Views obtained: bilateral craniocaudal and bilateral mediolateral oblique. Computer Aided Detection was performed. Mammogram Findings: The present examination has been compared to prior imaging studies performed at [facility]. [facility] on 01/01/2022 and 02/25/2023, and at [facility]. [place], [place] on 09/12/2020. There are scattered areas [...] compared to prior imaging studies performed at [facility]. [facility] on 01/01/2022 and 02/25/2023, and at [facility]. [place], [place] on 09/12/2020. There are scattered areas [...] Camacho MD - 04/02/2022 9:28 AM CDT [facility] Patient Name: Camila Huitron Procedure Date: 04/02/2022 9:28 AM Date of : 1975 Admit Type: Outpatient Age: 46 Gender: Female Attending MD: Ad Camacho M.D. Room: [facility] ENDOSCOPY ROOM 2 Note Status: Finalized Patient [...] scope was passed under direct vision. TheColonoscope [id number] was introduced through the anus and advanced [...] 9:28 AM Procedure Code(s): --- Professional --- 01043, Colonoscopy, flexible; with biopsy, single or multiple Diagnosis Code(s): --- Professional --- Z12.11, Encounter for screening for malignant neoplasm of colon D12.3, Benign neoplasm of transverse colon (hepatic flexure orsplenic flexure) D12.4, Benign neoplasm of descending colon D12.8, Benign neoplasm of rectum CPT copyright 2020 [employer]. All rights reserved. The codes documented in this report are preliminary and upon switch box installer reviewmay be revised to meet current compliance requirements. Recognized by the [employer] [employer] for promoting quality in endoscopy Ad Camacho MD ENDOSCOPY PROCEDURES Final Resul t * Diabetic Foot Exam (03/26/2021) Impressions Art Staley MA - 03/26/2021 In care everywhere Historical Provider HEALTH MAINTENANCE Final Result from Last 3 Months or Most Recently Relevant to Health Maintenance Insurance Cass [employer] [facility] H[facility]/PPO Address: [address] [place], [place] [id number] [facility] H[facility]/PPO Address: [address] [place] [address] Advance Directives For more information, please contact: [phone] * Full Code (Latest Code Status on File) Date Activated Date Inactivated Comments 04/02/2022 9:27 AM 04/02/2022 4:47 PM * Full Code Date Activated Date Inactivated Comments 04/02/2022 9:27 AM 04/02/2022 9:27 AM Care Teams Groundskeeper Porter Relationship Specialty [place] [address] [facility] [address] [place] [address] PCP - General Internal Medicine 04/06/24 Ann Serrano MD Referring Physician Endocrinology Diabetes & Metabolism 06/08/20
--- OUTSIDE RECORDS SUMMARY | 2024-12-08 19:58 | XMS_ITS | Encounter Summary ---
Author Organization [facility] Healthcare Address [address] [place] [address] Care Team Providers Care Blow Mold Machine Operator Name Role Phone Ann Serrano MD Unavailable [phone] Lynn Rodriguez MD Primary Care Provider Encounter Details Date Type Department Care Team (Late st Contact Info) Description 11/07/2024 Results Follow-Up [facility] Medical Group Convenient Care at [address] [address] Karley Rubi, FOREST EXAMINER [address] [place] [address] [address] [place] [address] Social History Tobacco Use Types [...] on file Legal Sex Female 11:54 PM LOCKSTITCH COAT JOINER Gender Identity Female 09/19/2020 8:37 AM LOCKSTITCH COAT JOINER Sexual Orientation Straight 09/19/2020 8: 37 AM LOCKSTITCH COAT JOINER documented as of this encounter Plan of Treatment Not on file documented as of this encounter Visit Diagnoses Not on filedocumented in this encounter Additional Health Concerns Infection Onset Date Last Indicated Resolved Time COVID: Suspected 11/07/2024 11/07/2024 11/07/2024 2:20 PM CDT documented as of this encounter Care Teams Blow Mold Machine Operator Relationship Specialty [place] [address] [facility] [address] [place] [address] PCP - General Internal Medicine 04/06/24 Ann Serrano MD Referring Physician Endocrinology Diabetes & Metabolism 06/08/20 documented as of this encounter
--- OUTSIDE RECORDS SUMMARY | 2024-12-08 19:58 | XMS_ITS | Encounter Summary ---
Author Organization [facility] Address [address] [place] [address] Phone Care Team Providers Care Machine Sneller Name Role Phone Kishor Saleh MD Primary Care Provider [phone] Ann Serrano MD Unavailable [phone] No, Physician Primary Care Provider [phone] Kishor Saleh MD Primary Care Provider [phone] Lynn Rodriguez MD Primary Care Provider Encounter Details Date Type Department Care Team (Late st Contact Info) Description 09/30/2017 Orders Only [facility] ProviderStephenie MD [address] [place] [address] Social History Tobacco Use Types Packs/Day Years Used Date Smoking Tobacco: Never Smokeless Tobacco: Never Alcohol Use Standard Drinks/Week Comments No 0 (1 standard drink = 0.6 oz pur e alcohol) Comments Unknown Sex and Gender Information Value Date Recorded Sex Assigned at Not on file Legal Sex Female 11:54 PM CHIEF BANK EXAMINER Gender Identity Female 09/19/2020 8:37 AM CHIEF BANK EXAMINER Sexual Orientation Straight 09/19/2020 8: 37 AM CHIEF BANK EXAMINER documented as of this encounter Plan of Treatment Not on file documented as of this encounter Procedures Procedure Name Priority Date/Time Associated Diagnosis Comments DISCHARGE LABORATORY CUMULATIVE REPORT 09/30/2017 12:00 AM CHIEF BANK EXAMINER documented in this encounter Results * DISCHARGE LABORATORY CUMULATIVE REPORT (09/30/2017 12:00 AM CHIEF BANK EXAMINER) Narrative 09/30/2017 12:00 AM CHIEF BANK EXAMINER Ordered by an unspecified provider. us Historical Provider LAB BLOOD ORDERABLES Flora l Result documented in this encounter Visit Diagnoses Not on filedocumented in this encounter Additional Health Concerns Infection Onset Date Last Indicated Resolved Time COVID: Suspected 08/13/2022 08/13/2022 08/13/2022 1:16 PM CHIEF BANK EXAMINER COVID: Suspected 11/07/2024 11/07/2024 11/07/2024 2:20 PM CDT documented as of this encounter Care Teams Machine Sneller Relationship Specialty Start Date End Date Kishor Saleh MD PCP - General 09/28/08 11/16/23 No, Physician PCP - General 11/17/23 12/28/23 Kishor Saleh MD [address] [facility] [address], [place] [address] PCP - General Internal Medicine 12/29/23 04/05/24 [place] [address] [facility] [address] [place] [address] PCP - General Internal Medicine 04/06/24 Ann Serrano MD Referring Physician Endocrinology Diabetes & Metabolism 06/08/20 documented as of this encounter
--- OUTSIDE RECORDS SUMMARY | 2024-12-08 19:58 | XMS_ITS | Clinical Summary ---
Author Organization [facility] Address [address] [place] [address] Care Team Providers Care Pattern Carrier Name Role Phone Kishor Saleh MD Primary Care Provider [phone] Source Comments [facility],non-owned Affiliates and Associated Physician Practices is amultiple site organization consisting of ambulatory clinics and hospital sitesin [place], [place], [place] and [place]. This disclosure is being madepursuant to the Care Everywhere program and may not contain all information available regarding this patient. Last updated 18.[facility] Allergies Active Allergy Reactions Criticality Noted Date [...] fluticasone propionate (Flonase) 50 MCG/ACT nasal spray [place] 2 (two) sprays into each nostril once [...] vitamin D, ergocalciferol , (Drisdol) 1.25 MG (10921 UT) capsule Take 1 (one) capsule by [...] any time in the past 12 m [facility], were you homeless or living in a correction (including now)? No 08/15/2024 Comments Unknown Sex and Gender Information Value Date Recorded Sex Assigned at Not on file Legal Sex Female 4:50 AM SUPERVISOR MENDING Gender Identity Not on file Sexual Orientation Not on file Last Filed Vital Signs Vital Sign Reading Time Taken Comments Blood Pressure 154/92 08/18/2024 12:25 PM SUPERVISOR MENDING Pulse 102 08/18/2024 12:25 PM SUPERVISOR MENDING Temperature 36.7 C (98.1 F) 08/18/2024 12:25 PM SUPERVISOR MENDING Respiratory Rate 23 08/18/2024 12:2 5 PM SUPERVISOR MENDING Oxygen Saturation 90% 08/18/2024 12: 25 PM SUPERVISOR MENDING Inhaled Oxygen Concentration 21% 08/18/2024 2 :00 PM SUPERVISOR MENDING Weight 132.6 kg (292 lb 4.8 oz) 08/18/2024 4:00 AM SUPERVISOR MENDING Height 167.6 cm (5' 6 ) 08/13/2024 5:14 PM SUPERVISOR MENDING Body Mass Index 47.18 08/13/2024 5:14 PM SUPERVISOR MENDING Plan of Treatment Health Maintenance Due Date [...] (CALCIUM TOTAL) AM Draw 08/17/2024 4:16 AM SUPERVISOR MENDING HEMOGLOBIN A1C Routine 08/14/2024 3:27 AM SUPERVISOR MENDING from Last 3 Months or Most Recently Relevant to Health Maintenance Results * (ABNORMAL) BASIC METABOLIC PANEL (CALCIUM TOTAL) (08/17/2024 4:16 AM SUPERVISOR MENDING) Glucose 139(H) 70 - 99 mg/dL 08/17/2024 4:53 AM SUPERVISOR MENDING [facility] Sodium 140 136 - 145 mmol/L 08/17/2024 4:53 AM SUPERVISOR MENDING [facility] Potassium 3.5 3.5 - 5.1 mmol/L 08/17/2024 4:53 AM SUPERVISOR MENDING [facility] Chloride 108(H) 98 - 107 mmol/L 08/17/2024 4:53 AM SUPERVISOR MENDING [facility] CO2 24 22 - 29 mmol/L 08/17/2024 4:53 AM SUPERVISOR MENDING [facility] Calcium 8.9 8.4 - 10.4 [...] Unknown Venipuncture / Unknown 08/17/2024 4:16 AM SUPERVISOR MENDING 08/17/2024 4:30 AM [facility] Alexus Ramirez MD LAB - CHEMISTRY ORDERABLES Final Result [facility] [address] [place] [address] * (ABNORMAL) HEMOGLOBIN A1C (08/14/2024 3:27 AM [facility]) Hemoglobin A1c 10.1(H) <5.7 % 08/14/2024 3:48 AM [facility] Estimated Average Glucose 243 mg/dL 08/14/2024 3:48 AM [facility] Blood BLOOD SPECIMEN / Unknown Venipuncture / Unknown 08/14/2024 3:27 AM SUPERVISOR MENDING 08/14/2024 3:37 AM [facility] Narrative [facility] - 08/14/2024 3:48 AM [facility] HbA1c Interpretation: Normal: < 5.7% Pre-diabetes: 5.7-6.4% [...] MD LAB - CHEMISTRY ORDERABLES Final Result [facility] [address] [place] [address] from Last 3 Months or Most Recently Relevant to Health Maintenance Insurance [facility] [employer] Advance Directives * Full Code (Latest Code Status on File) Date Activated Date Inactivated Comments 08/13/2024 3:54 PM 08/18/2024 6:24 PM Care Teams Pattern Carrier Relationship Specialty Start Date End Date iKshor Saleh MD [address] [place] [address] [place] [address] PCP - General Internal Medicine 07/31/23
--- OUTSIDE RECORDS SUMMARY | 2024-12-08 19:58 | XMS_ITS | Clinical Summary ---
Author Organization [facility] Address [address] [address] [place] [address] Phone Care Team Providers Care Unmanned Equipment Operator Name Role Phone Masoud Hayes MD Primary Care Provider [phone] Allergies Active Allergy Reactions Criticality Noted Date [...] mouth daily. 30 Tablet 08/13/2022 2:47 PM SENIOR NET APPLICATION DEVELOPER 3 Active amLODIPine (NORVASC) 2.5 mg tablet Take 1 Tablet (2.5 mg) by mouth daily in the morning. 90 Tablet 05/29/2023 5:55 PM CDT 3 Active cyclobenzaprine (FLEXERIL) 5 mg Tablet TAKE 1-2 TABLETS BY MOUTH NIGHTLY TO REDUCE MUSCLE CRAMPS 60 Tablet 3 07/10/2023 3:38 PM SENIOR NET APPLICATION DEVELOPER 3 Active hydroxychloroqu ine (PLAQUENIL) 200 mg tablet TAKE 2 TABLETS BY MOUTH ONCE DAILY 60 Tablet 3 07/10/2023 3:38 PM SENIOR NET APPLICATION DEVELOPER 3 Active mycophenolate mofetil (CELLCEPT) 500 mg tablet TAKE 3 TABLETS BY MOUTH TWICE DAILY 180 Tablet 4 07/10/2023 3:38 PM SENIOR NET APPLICATION DEVELOPER 3 Active insulin glargine (LANTUS) 100 unit/mL [...] for pain 30 Tablet 07/13/2024 12:19 PM SENIOR NET APPLICATION DEVELOPER 4 Active methylPREDNISol one (Medrol, Marvel,) 4 [...] 3 Active fluticasone propionate (FLONASE) 50 mcg/spray Colony, Suspension nasal inhaler Administer 2 Sprays in each nostril 1 time daily as needed. 3 Active folic acid (FOLVITE) 1 mg tablet 4 Active gabapentin (NEURONTIN) 300 mg capsule 4 Active glucagon (BAQSIMI) 3 mg/spray Colony, Non-Aerosol Administer 1 Colony in each nostril. 4 Active insulin glargine-yfgn [...] daily. 120 Tablet 3 09/11/2024 3:51 PM SENIOR NET APPLICATION DEVELOPER 4 Active venlafaxine (EFFEXOR XR) 150 mg Extended Release 24 hour capsule Take 1 capsule (150 mg total) by mouth daily 30 Capsule 07/13/2024 12:19 PM SENIOR NET APPLICATION DEVELOPER 4 Active tirzepatide (Mounjaro) 10 mg/0.5 mL Pen Injector Inject 10 mg under the skin every 7 days 2 mL 3 09/29/2024 4:41 PM SENIOR NET APPLICATION DEVELOPER 4 Active isosorbide dinitrate (ISORDIL) 5 mg [...] migh t be different from the original. Yarn Winder: Dr. 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 Not on file Not on file Not on file Last Filed Vital Signs Vital Sign Reading Time Taken Comments Blood Pressure 128/90 06/21/2024 10:51 AM SENIOR NET APPLICATION DEVELOPER Pulse 82 03/22/2012 2:23 PM CDT Temperature - - Respiratory Rate 18 03/22/2012 2:23 PM CDT Oxygen Saturation 97% 03/22/2012 1:51 PM CDT Inhaled Oxygen Concentration - - Weight 141.2 kg (311 lb 3.2 oz) 024 10:51 AM SENIOR NET APPLICATION DEVELOPER Height 167.6 cm (5' 6 ) 05/17/2024 11:2 7 AM CDT Body Mass Index 50.23 05/17/2024 11:27 AM CDT Plan of Treatment Upcoming Encounters Date Type Department Care Team (Late st Contact Info) Description 12/29/2024 11:30 AM CDT Office Visit [facility] ARTIFICIAL STONE APPLICATOR Medical [facility] [address] [facility] [address] [place] [address] Kendrick Teague MD [address] [facility] [address] [place] [phone] Health Maintenance Due Date Last Done Comments [...] PAP (05/17/2024 4:26 PM CDT) COMMENT (PAP): [facility] [place] Comment: This order for age-based cervical cancer and STI screening follows ACOG guidelines(PB 168, 140, VKJ803). See individual assays for performing site location. CLINICAL INFORMATION [facility] [place] Comment:None given LAST MENSTRUAL PERIOD [facility] [place] Comment:10/02/2023 PREV PAP: [facility] [place] Comment:NONE GIVEN PREV BX: [facility] [place] Comment:NONE GIVEN SOURCE [facility] [place] Comment:Endocervix ADEQUACY: [facility] [place] Comment: Satisfactory for evaluation. Endocervical/transformation zone component absent. PAP INTERP [facility] [place] Comment: Cytology Results: Negative for intraepithelial lesion or malignancy. COMMENT (PAP TEST) [facility] [place] Comment: This Pap test has been evaluated with computer assisted technology. CONCHE OPERATOR: [facility] [place] Comment: MEF, CT(ASCP) CT screening location: [place] [address] [place] [address] EXPLANATORY NOTE [facility] Comment: EXPLANATORY NOTE: The Pap is [...] information. HPV E6/E7 Not Detected Not Detected [facility] [place] Comment: Methodology: Public Affairs Specialist-Mediated Amplification This assay detects E6/E7 viral messenger RNA (mRNA) from 14 high-risk HPV types (16,18,31,33,35,39,45,51,52,56,58,59,66,68). Cervical sources are required for HPV testing. If a vaginal source from a patient who has had a total hysterectomy with removal of cervix was submitted, please contact the testing laboratory for alternative testing options. For additional information, please refer to http://education.webtide.Prong/faq/GZX905p4 (This link if provided for information/ educational purposes only.) Test Performed at: [facility] [address] [phone] Torin Dunn MD SL [facility]ital SWAB OF ENDOCERVIX / Unknown 05/17/2024 4:26 PM CDT 05/18/2024 3:48 AM CDT Kendrick Teague MD PATHOLOGY/CYTOLOGY ORDERABLE S Final Result [facility] [phone] [facility] [address] [address] [phone] from Last 3 Months or Most Recently Relevant to Health Maintenance Insurance [place] [id number] [facility] Address: [facility] [address] [place] [address] RX [employer] Member Subscriber Plan / Payer (Ef fective 2023-Present) Name:Walt Huitron Relation to Subscriber:Self Name:Walt Huitron Subscriber ID:Not on file Payer ID:Not on file Group ID:[id number] Type:RX Commercial Address: [place] [place] PL[employer] (INTERNAL) [facility] Internal Plans Care Teams Unmanned Equipment Operator Relationship Specialty Start Date End Date Masoud Hayes MD PCP - General Internal Medicine 03/08/12
--- OUTSIDE RECORDS SUMMARY | 2024-12-08 19:59 | XMS_ITS | Encounter Summary ---
Author Organization [facility] Health Address [address] [facility] [place] [address] Care Team Providers Care Squeegee Operator Name Role Phone Tiffany Cox MD Primary Care Provider Unavailable Kishor Saleh MD Primary Care Provider [phone] Encounter Details Date Type Department Care Team (Late st Contact Info) Description 07/03/2023 Lab Requisition [facility] DermPath Lab [address] [place] [phone] [place] [address] [facility] [address] S[address] [place] [address] Social History Tobacco Use Types Packs/Day Years Used Date Smoking Tobacco: Never Assessed Comments Unknown Sex and Gender Information Value Date Recorded Sex Assigned at Not on file Legal Sex Female 4:50 AM RISK MANAGEMENT INTERN Gender Identity Not on file Sexual Orientation Not on file documented as of this encounter Plan of Treatment Not on file documented as of this encounter Visit Diagnoses Not on filedocumented in this encounter Additional Health Concerns Infection Onset Date Last Indicated Resolved Time COVID-19 Under Investigation 08/13/2024 08/13/2024 08/13/2024 11:30 PM RISK MANAGEMENT INTERN documented as of this encounter Care Teams Squeegee Operator Relationship Specialty Start Date End Date Tiffany Cox MD PCP - General Internal Medicine 05/16/13 07/30/23 Kishor Saleh MD [address] [place] [address] DR S[address] [place] [id number] PCP - General Internal Medicine 07/31/23 documented as of this encounter
--- OUTSIDE RECORDS SUMMARY | 2024-12-08 19:59 | XMS_ITS | Encounter Summary ---
Author Organization [facility] Address [address] [facility] [place] [address] Care Team Providers Care Mobile Application Architect Name Role Phone Tiffany Cox MD Primary Care Provider Unavailable Kishor Saleh MD Primary Care Provider Encounter Details Date Type Department Care Team (Late st Contact Info) Description 07/03/2023 Lab Requisition [facility] DermPath Lab [address] [place] [address] [place] [address] [address] Social History Tobacco Use Types Packs/Day Years Used Date Smoking Tobacco: Never Assessed Comments Unknown Sex and Gender Information Value Date Recorded Sex Assigned at Not on file Legal Sex Female 4:50 AM PNEUMATIC TUBE OPERATOR Gender Identity Not on file Sexual Orientation Not on file documented as of this encounter Plan of Treatment Not on file documented as of this encounter Procedures Procedure Name Priority Date/Time Associated Diagnosis Comments DERMATOPATHOLOGY Routine 07/01/2023 3:33 AM PNEUMATIC TUBE OPERATOR documented in this encounter Results * DERMATOPATHOLOGY (07/01/2023 3:33 AM PNEUMATIC TUBE OPERATOR) Case Report Dermatopathology Report Case: [id number] Authorizing Provider: Kendrick Christopher MD Collected: 07/01/2023 03:33 AM Ordering Location: [facility] DermPath Lab Received: 07/03/2023 12:12 PM Pathologist: Bella Schwab MD Specimen: Skin, right inferior knee 3:45 PM [facility] DERMATOPATHOLOGY LABORATORY Final Diagnosis Specimen A. SKIN, right inferior knee: STASIS DERMATITIS (L30.8) DERMAL FIBROSIS (L90.5) (see microscopic description) 3:45 PM [facility] DERMATOPATHOLOGY LABORATORY Clinical History Rash; R/O Leukocytoclastic Vasculitis, Livedo Reticularis 3:45 PM [facility] DERMATOPATHOLOGY LABORATORY Gross Description Specimen A: Received is one formalin filled container labeled with the patient's name and designated right inferior knee. The specimen consists of a punch biopsy measuring 6x5x6 mm. Jar 0. 3:45 PM [facility] DERMATOPATHOLOGY LABORATORY Microscopic Description Specimen [...] sections were obtained and reviewed. 3:45 PM [facility] DERMATOPATHOLOGY LABORATORY Disclaimer An external and internal positive and negative controls are appropriate for the histochemical, immunohistochemical and immunofluorescence stain(s) in this case (if any), except where stated explicitly. The performance characteristics of the stain(s) cited in this report were developed and its performance characteristic determined by the Dermatopathology Laboratory at [facility], directed by Dr. Arnol Perea. These tests need not be, and therefore are not, approved by the [place] Food and Drug Administration. The tests are used for clinical purposes. Billing Codes Specimen Charges Stain Charges 19672 1 71318 1 3 3:45 PM [facility] DERMATOPATHOLOGY LABORATORY Embedded Images 3 3:45 PM [facility] DERMATOPATHOLOGY LABORATORY Pathology/Cytolo gy TISSUE SPECIMEN FROM SKIN / Unknown 07/01/2023 3:33 AM PNEUMATIC TUBE OPERATOR 07/03/2023 12:12 PM PNEUMATIC TUBE OPERATOR us Kendrick Christopher MD LAB - PATHOLOGY/CYTOLOGY O RDERABLES Final Result DERMATOPATHOLOGY LABORATORY [facility] - Department of Dermatology [facility] Medicine [address] [place] [address], [address] [phone] documented in this encounter Visit Diagnoses Not on filedocumented in this encounter Additional Health Concerns Infection Onset Date Last Indicated Resolved Time COVID-19 Under Investigation 08/13/2024 08/13/2024 08/13/2024 11:30 PM PNEUMATIC TUBE OPERATOR documented as of this encounter Care Teams Mobile Application Architect Relationship Specialty Start Date End Date Tiffany Cox MD PCP - General Internal Medicine 05/16/13 07/30/23 Kishor Saleh MD [address] [place] [address] DR S[address] [address] [place] [id number] PCP - General Internal Medicine 07/31/23 documented as of this encounter
--- OUTSIDE RECORDS SUMMARY | 2024-12-08 19:59 | XMS_ITS | Encounter Summary ---
Author Organization [facility] Address [address] [facility] [place] [address] Care Team Providers Care Bonding Supervisor Name Role Phone Tiffany Cox MD Primary Care Provider Unavailable Kishor Saleh MD Primary Care Provider Encounter Details Date Type Department Care Team (Late st Contact Info) Description 07/03/2023 Lab Requisition [facility] - DermPath Lab [address] [place] [address] [place] [address] [address] Social History Tobacco Use Types Packs/Day Years Used Date Smoking Tobacco: Never Assessed Comments Unknown Sex and Gender Information Value Date Recorded Sex Assigned at Not on file Legal Sex Female 4:50 AM CDL TRUCK DRIVER Gender Identity Not on file Sexual Orientation Not on file documented as of this encounter Plan of Treatment Not on file documented as of this encounter Procedures Procedure Name Priority Date/Time Associated Diagnosis Comments IMMUNOFLUORESCENT STUDY DERM Routine 07/01/2023 3:33 AM CDL TRUCK DRIVER documented in this encounter Results * IMMUNOFLUORESCENT STUDY DERM (07/01/2023 3:33 AM CDL TRUCK DRIVER) Case Report Dermatopathol ogy Report Case: [id number] Authorizing Provider: Kendrick Christopher MD Collected: 07/01/2023 03:33 AM Ordering Location: [facility] DermPath Lab Received: 07/03/2023 12:13 PM Pathologist: Bella Schwab MD Specimen: Skin, right superior han 3:46 PM [facility] DERMATOPATHOLOGY LABORATORY Final Diagnosis Specimen A. SKIN, right superior han: COLLOID BODIES (L98.9) (see microscopic description) (see fixed tissue results) 3:46 PM CDL TRUCK DRIVER DERMATOPATHOLOGY LABORATORY Direct Immunofluorescence Report - Specimen A Specimen A IgA IgM IgG C3 CollV Fibrinogen Epidermis Negative Negative Negative Negative Negative Negative Basement Membrane Negative Negative Negative Negative 2+ Negative Vessels Negative Negative Negative Negative 2+ Negative Interstitium Colloid Colloid Colloid Negative Negative Non specific 3 3:46 PM CDL TRUCK DRIVER DERMATOPATHOLOGY LABORATORY Clinical History Rash; R/O Leukocytoclas tic Vasculitis, Livedo Reticularis 3:46 PM [facility] TRUCK DRIVER DERMATOPATHOLOGY LABORATORY Gross Description Specimen A: Received is one Jatinder's media filled container labeled with the patient's name and designated right superior han. The specimen consists of a punch biopsy measuring 5x4x4 mm. The specimen is submitted in whole for direct immunofluores cence testing. 3:46 PM [facility] DERMATOPATHOLOGY LABORATORY Microscopic Description Specimen A. [...] rubbing. See fixed tissue results. 3:46 PM CDL TRUCK DRIVER DERMATOPATHOLOGY LABORATORY Disclaimer An external and internal positive and negative controls are appropriate for the histochemical , immunohistoch emical and immunofluores cence stain(s) in this case (if any), except where stated explicitly. The performance characteristi cs of the stain(s) cited in this report were developed and its performance characteristi c determined by the Dermatopathol ogy Laboratory at [facility], directed by Dr. Arnol Perea. These tests need not be, and therefore are not, approved by the [place] Food and Drug Administratio n. The tests are used for clinical purposes. Billing Codes Specimen Charges Stain Charges 71896 30510 46470 35886 13560 01271 1 1 1 1 1 1 3 3:46 PM CDL TRUCK DRIVER DERMATOPATHOLOGY LABORATORY Embedded Images 3 3:46 PM CDL TRUCK DRIVER DERMATOPATHOLOGY LABORATORY Pathology/Cytolo gy TISSUE SPECIMEN FROM SKIN / Unknown 07/01/2023 3:33 AM CDL TRUCK DRIVER 07/03/2023 12:13 PM CDL TRUCK DRIVER Kendrick Christopher MD LAB - PATHOLOGY/CYTOLOGY O RDERABLES Final Result DERMATOPATHOLOGY LABORATORY [facility] - Department of Dermatology [address], [address] [phone] documented in this encounter Visit Diagnoses Not on filedocumented in this encounter Additional Health Concerns Infection Onset Date Last Indicated Resolved Time COVID-19 Under Investigation 08/13/2024 08/13/2024 08/13/2024 11:30 PM CDL TRUCK DRIVER documented as of this encounter Care Teams Bonding Supervisor Relationship Specialty Start Date End Date Tiffany Cox MD PCP - General Internal Medicine 05/16/13 07/30/23 Kishor Saleh MD [address] [place] [address] [address] [place] [address] PCP - General Internal Medicine 07/31/23 documented as of this encounter
--- OUTSIDE RECORDS SUMMARY | 2024-12-08 19:59 | XMS_ITS | Encounter Summary ---
Author Organization [facility] Health Address [address] [place] [place] [address] Care Team Providers Care Supervisor Heat Treating Name Role Phone Tiffany Cox MD Primary Care Provider Unavailable Kishor Saleh MD Primary Care Provider [phone] Encounter Details Date Type Department Care Team (Late st Contact Info) Description 07/03/2023 Lab Requisition [facility] [address] [place] [phone] [place] [address] [facility] [address] [place] [address] Social History Tobacco Use Types Packs/Day Years Used Date Smoking Tobacco: Never Assessed Comments Unknown Sex and Gender Information Value Date Recorded Sex Assigned at Not on file Legal Sex Female 4:50 AM DEICER TESTER Gender Identity Not on file Sexual Orientation Not on file documented as of this encounter Plan of Treatment Not on file documented as of this encounter Visit Diagnoses Not on filedocumented in this encounter Additional Health Concerns Infection Onset Date Last Indicated Resolved Time COVID-19 Under Investigation 08/13/2024 08/13/2024 08/13/2024 11:30 PM DEICER TESTER documented as of this encounter Care Teams Supervisor Heat Treating Relationship Specialty Start Date End Date Tiffany Cox MD PCP - General Internal Medicine 05/16/13 07/30/23 Kishor Saleh MD [address] [place] [address] [address] [place] [address] PCP - General Internal Medicine 07/31/23 documented as of this encounter
--- OUTSIDE RECORDS SUMMARY | 2024-12-08 19:59 | XMS_ITS | Encounter Summary ---
Author Organization [facility] Address [address] [place] [address] Phone Care Team Providers Care Testing Engineer Name Role Phone Ann Serrano MD Unavailable [phone] No, Physician Primary Care Provider [phone] Kishor Saleh MD Primary Care Provider [phone] Lynn Rodriguez MD Primary Care Provider Reason for Visit * Reason Onset Date Comments Prior Auth 12/11/2023 Mounjaro 7.5mg/0 .5ml Encounter Details Date Type Department Care Team (Late st Contact Info) Description 12/11/2023 Telephone [facility] Endocrinology Metabolism and Lipid [address] [facility] [place] Medicine 13th [place] [address] [place] [address] Stephanie Sandoval RMA Prior Auth [...] on file Legal Sex Female 11:54 PM INFORMATION RESOURCES DIRECTOR Gender Identity Female 09/19/2020 8:37 AM INFORMATION RESOURCES DIRECTOR Sexual Orientation Straight 09/19/2020 8: 37 AM INFORMATION RESOURCES DIRECTOR documented as of this encounter Miscellaneous Notes * Telephone Encounter - Janet Taylor V. - 12/06/2024 11:15 AM CDT [place]: [id number] Mounjaro 7.5MG/0.5ML pen-injectors [employer]:[id number] Status:Approved 12/06/2024-12/06/2025 * Telephone Encounter - Shawna Owen - 12/29/2023 10:30 AM CDT [place]: [id number] [employer] Electronic Prior Authorization #[id number] Mounjaro 7.5MG/0.5ML pen-injectors Status: Approved Effective Dates: [...] documented as of this encounter Care Teams Testing Engineer Relationship Specialty Start Date End Date No, Physician PCP - General 11/17/23 12/28/23 Kishor Saleh MD [address] [place] [address] PCP - General Internal Medicine 12/29/23 04/05/24 [place] [address] [address] [place] [address] PCP - General Internal Medicine 04/06/24 Ann Serrano MD Referring Physician Endocrinology Diabetes & Metabolism 06/08/20 documented as of this encounter
--- OUTSIDE RECORDS SUMMARY | 2024-12-08 19:59 | XMS_ITS | Encounter Summary ---
Author Organization [facility] Health Address [address] [place] [address] Care Team Providers Care Body And Frame Technician Name Role Phone Tiffany Cox MD Primary Care Provider Unavailable Kishor Saleh MD Primary Care Provider Encounter Details Date Type Department Care Team (Late st Contact Info) Description 07/03/2023 Lab Requisition [facility] [address] [place] [phone] [place] [address] [facility] [address] [address] [place] [address] Social History Tobacco Use Types Packs/Day Years Used Date Smoking Tobacco: Never Assessed Comments Unknown Sex and Gender Information Value Date Recorded Sex Assigned at Not on file Legal Sex Female 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 Gender Identity Not on file Sexual Orientation Not on file documented as of this encounter Plan of Treatment Not on file documented as of this encounter Visit Diagnoses Not on filedocumented in this encounter Additional Health Concerns Infection Onset Date Last Indicated Resolved Time COVID-19 Under Investigation 08/13/2024 08/13/2024 08/13/2024 11:30 PM BRIQUETTING MACHINE OPERATOR documented as of this encounter Care Teams Body And Frame Technician Relationship Specialty Start Date End Date Tiffany Cox MD PCP - General Internal Medicine 05/16/13 07/30/23 Kishor Saleh MD [address] [place] [address] [address] [place] [id number] PCP - General Internal Medicine 07/31/23 documented as of this encounter
--- NOTE | 2024-12-08 20:23 | ED_ITS ---
HPI - Back Pain/Injury General Chief Complaint: Back Pain/Injury Stated Complaint: low back pain radiating down right leg Time Seen by Provider: 12/08/24 19:51 Source: patient Mode of arrival: ambulatory Limitations: no limitations History of Present Illness HPI Narrative: This is a 49-year-old female, with history of sciatica diabetes and hypertension, presents to the emergency department complaining of right-sided lower back pain for the past day. The patient states she was standing and twisted when she said ?it when out. ? She denies trauma, fevers, loss of sensation in the groin or loss of bowel or bladder control. She complains of paresthesias and numbness extending to the right foot which is chronic for her. She has no other complaints at this time. Related Data Home Medications ?Medication ?Instructions ?Recorded ?Confirmed ?Last Taken ?Type atorvastatin 20 mg tablet 20 mg PO HS 10/15/20 10/03/24 05/24/23 History loratadine 10 mg tablet (Claritin) 10 mg PO DAILY 10/15/20 10/03/24 05/24/23 History montelukast 10 mg tablet 10 mg PO HS 10/15/20 10/03/24 Unknown History insulin lispro-aabc 100 unit/mL 1 sliding scale dose subcut AC 05/25/23 10/03/24 05/24/23 History subcutaneous pen (Lyumjev KwikPen U-100 Insulin) tirzepatide 5 mg/0.5 mL 10 mg subcut WEEKLY 05/25/23 10/03/24 07/28/24 History subcutaneous pen injector (Stephan) venlafaxine 150 mg 150 mg PO QPM 05/25/23 10/03/24 05/24/23 History capsule,extended release 24 hr albuterol sulfate 2.5 mg/3 mL 2.5 mg inhalation DAILY PRN 08/10/23 10/03/24 Unknown History (0.083 %) solution for nebulization Shortness Of Breath cetirizine 10 mg tablet (All Day 10 mg PO DAILY 08/10/23 10/03/24 07/30/24 History Allergy (cetirizine)) ergocalciferol (vitamin D2) 50,000 unit PO .COMPLEX 08/10/23 10/03/24 07/27/24 History fluticasone propionate 50 1 spray intranasal DAILY PRN 08/10/23 10/03/24 Unknown History mcg/actuation nasal allergy symptoms spray,suspension prednisone 20 mg tablet 40 mg PO DAILY@0800 08/10/23 10/03/24 Unknown History cyclobenzaprine 10 mg tablet 10 mg PO HS 07/31/24 12/08/24 12/07/24 History diclofenac sodium 75 mg 75 mg PO BID 07/31/24 10/03/24 Unknown History tablet,delayed release folic acid 1 mg tablet 1 mg PO DAILY 07/31/24 10/03/24 Unknown History gabapentin 300 mg capsule 300 mg PO TID 07/31/24 10/03/24 Unknown History hydroxychloroquine 200 mg tablet 400 mg PO HS 07/31/24 10/03/24 Unknown History insulin glargine 100 unit/mL (3 45 unit subcut BID 07/31/24 10/03/24 07/30/24 History mL) subcutaneous pen (Lantus Solostar U-100 Insulin) lisinopril 20 mg tablet 20 mg PO DAILY 07/31/24 10/03/24 Unknown History methotrexate sodium 2.5 mg tablet 12.5 mg PO WEEKLY 07/31/24 10/03/24 07/28/24 History pantoprazole 40 mg tablet,delayed 40 mg PO DAILY 07/31/24 10/03/24 Unknown History release acetaminophen 500 mg tablet 1,000 mg PO BID 09/23/24 10/03/24 Unknown History famotidine 20 mg tablet (Acid 20 mg PO HS 09/23/24 10/03/24 Unknown History Controller) magnesium 200 mg tablet 400 mg PO DAILY 09/23/24 10/03/24 Unknown History magnesium salicylate 162.5 1 tablet PO DAILY 09/23/24 10/03/24 Unknown History mg-caffeine 50 mg tablet (Diurex) potassium 99 mg tablet 99 mg PO HS 09/23/24 10/03/24 Unknown History albuterol sulfate 90 mcg/actuation 2 puff inhalation Q8H PRN 10/03/24 10/03/24 Unknown History aerosol inhaler shortness of breath or wheezing Allergies Allergy/AdvReac Type Severity Reaction Status Date / Time amoxicillin AdvReac Unknown Nausea and Verified 12/08/24 17:46 Vomiting glipizide AdvReac Unknown NAUSEA AND Verified 12/08/24 17:46 VOMITING hydrocodone AdvReac Unknown Nausea and Verified 12/08/24 17:46 Vomiting metformin AdvReac Unknown Nausea and Verified 12/08/24 17:46 Vomiting Review of Systems Review of Systems: All systems reviewed & are unremarkable except as noted in HPI and below PMFSH Past Medical History Medical History Vasculitis Depression JEREMY on CPAP Hypertension Hypercholesterolemia Diabetes Surgical History Surgical History H/O arthroscopy H/O myomectomy Family History Family History Mother Diabetes mellitus Myocardial infarction Uterine cancer Father Cancer of blood vessel Sibling Diabetes mellitus Social History Social History Smoking status: Never smoker Alcohol intake: never Drinks per week: 1 Substance use: never Substance use type: does not use Do You Feel Safe in your Home?: Yes Lack of Transportation: No Lack of Food: Never True Current Housing: I Have Housing Concerned About Future Housing: No Difficulty Paying Gas/Electric Bills: No Difficulty Paying for Meds: No Currently Unemployed: No Education: High School Diploma/GED Difficulty w/ Childcare or Family Care: No Spiritual care concerns: No Exam Narrative: GENERAL: Well-developed, well-nourished, and in no acute distress. HEAD: Normocephalic, atraumatic. EYES: PERRLA and EOMI. NECK: Supple. No midline spine tenderness to palpation, no step-off or crepitus CHEST: Clear to auscultation. No respiratory distress. No wheezes rales or rhonchi HEART: Regular rate and rhythm. No murmur heard. Normal peripheral pulses. BACK: No midline spine tenderness to palpation, no step-off or crepitus. Tender to palpation over the right lumbar paraspinal musculature from approximately L4-S1 with some spasm EXTREMITIES: Normal range of motion. No edema. SKIN: Warm, dry, no rash. NEURO: Alert and oriented x3. No focal deficit. Moving all 4 limbs spontaneously PSYCH: Normal mood and affect. Course Course Emergency Course: 20:42 - The patient's exam is consistent with sciatica. I do not suspect fractu re, cauda equina or epidural abscess at this time. Will discharge with recommendation for Tylenol, lidocaine patches, muscle relaxers, rest and primary care follow-up. I discussed the findings and recommendations with the patient. Discussed return and emergency precautions including signs/symptoms of cauda equina epidural abscess. The patient voiced understanding and agreement with the plan. All questions answered to her satisfaction. Vital Signs Vital signs: Vital Signs Temperature 97.8 F 12/08/24 17:48 Pulse Rate 110 H 12/08/24 17:48 Respiratory Rate 16 12/08/24 17:48 Blood Pressure 160/98 H 12/08/24 17:48 Pulse Oximetry 98 12/08/24 17:48 Oxygen Delivery Room Air 12/08/24 17:48 Temperature 97.8 F 12/08/24 17:48 Pulse Rate 110 H 12/08/24 17:48 Respiratory Rate 16 12/08/24 17:48 Blood Pressure 160/98 H 12/08/24 17:48 Pulse Oximetry 98 12/08/24 17:48 Oxygen Delivery Room Air 12/08/24 17:48 MDM - Back Pain/Injury MDM Narrative Medical decision making narrative: Plan: Pain control, muscle relaxers, primary care follow-up Differential Diagnosis Differential diagnosis: Likely lumbar radiculopathy, sciatica, strain of lumbar region and other Discharge Plan Discharge Clinical Impression: Sciatica Qualifiers: Laterality: right Qualified Code(s): M54.31 - Sciatica, right side Acute right-sided low back pain Qualifiers: Sciatica presence: with sciatica Sciatica laterality: sciatica of right side Qualified Code(s): M54.41 - Lumbago with sciatica, right side Patient Disposition: Home Condition: Stable Instructions: Antibiotic Form, Sciatica (ED) Additional Instructions: You were seen in the emergency department. Your exam is consistent with sciatica. I do not suspect a fracture at this time. I recommend Tylenol, muscle relaxers (3 times a day) lidocaine patches, rest and primary care follow- up. If you develop fevers with severe back pain, loss of sensation in the groin, loss of bowel/bladder control, or if you have other emergent concerns for life, limb, or eyesight, return to the emergency department. Patient Language: Wolof Prescriptions: New lidocaine 5 % adhesive patch,medicated 1 patch topical DAILY Qty: 30 0RF Rx Instructions: leave on most painful area for up to 12 hrs No Action atorvastatin 20 mg tablet 20 mg PO HS Rx Instructions: Has been off since June due PCP order. montelukast 10 mg tablet 10 mg PO HS loratadine [Claritin] 10 mg Tablet 10 mg PO DAILY venlafaxine 150 mg capsule,extended release 24hr 150 mg PO QPM Lyumjebernice MitchellikPen U-100 Insulin 100 unit/mL insulin pen 1 sliding scale dose SUBCUT AC Rx Instructions: For blood sugar of 150 or less administer 18 units for blood sugar per 25 points greater than 150 administer 1 unit per 25 over Mounjaro 5 mg/0.5 mL pen injector 10 mg SUBCUT WEEKLY Patient Comments: on Saturdays tramadol 50 mg Tablet 50 mg PO Q4H PRN (Reason: Severe pain) Qty: 15 0RF albuterol sulfate 2.5 mg /3 mL (0.083 %) solution for nebulization 2.5 mg inhalation DAILY PRN (Reason: Shortness Of Breath) cetirizine [All Day Allergy (cetirizine)] 10 mg Tablet 10 mg PO DAILY fluticasone propionate 50 mcg/actuation [place],Suspension 1 spray INTRANASAL DAILY PRN (Reason: allergy symptoms) ergocalciferol (vitamin D2) 50,000 unit PO .COMPLEX Patient Comments: Patient takes on Wednesdays and Sundays Rx Instructions: 50,000 units orally twice a week; prednisone 20 mg tablet 40 mg PO DAILY@0800 cyclobenzaprine 10 mg tablet 10 mg PO HS Patient Comments: patient takes in the evening lisinopril 20 mg tablet 20 mg PO DAILY methotrexate sodium 2.5 mg tablet 12.5 mg PO WEEKLY Rx Instructions: on gabapentin 300 mg capsule 300 mg PO TID diclofenac sodium 75 mg tablet,delayed release (DR/EC) 75 mg PO BID folic acid 1 mg tablet 1 mg PO DAILY hydroxychloroquine 200 mg tablet 400 mg PO HS insulin glargine [Lantus Solostar U-100 Insulin] 100 unit/mL (3 mL) insulin pen 45 unit SUBCUT BID Patient Comments: in the morning and evening pantoprazole 40 mg tablet,delayed release (DR/EC) 40 mg PO DAILY Diurex 162.5-50 mg tablet 1 tablet PO DAILY magnesium 200 mg tablet 400 mg PO DAILY potassium 99 mg tablet 99 mg PO HS famotidine [Acid Controller] 20 mg tablet 20 mg PO HS acetaminophen 500 mg Tablet 1,000 mg PO BID albuterol sulfate 90 mcg/actuation HFA aerosol inhaler 2 puff INHALATION Q8H PRN (Reason: shortness of breath or wheezing) isosorbide dinitrate 5 mg Tablet 5 mg PO TID 30 Days Qty: 90 0RF metoprolol tartrate 25 mg tablet 12.5 mg PO BID 30 Days Qty: 30 0RF cefdinir 300 mg Capsule 300 mg PO Q12HR 9 Days Qty: 18 0RF Follow-up/Referrals: ADRIANNE SOMMERS [Other] - 2 Weeks UNKNOWN,DOCTOR [Primary Care Provider] - Time of Disposition: 20:24
[2024-12-08] MEDS: LIDOCAINE 5% PATCH 1 PATCH TRANSDERM (20:30)
[2024-12-08] MEDS: CYCLOBENZAPRINE HCL 10 MG TABLET PO (20:30)
[2024-12-08] MEDS: KETOROLAC 30 MG/ML VIAL (*BKC) IM (20:30)
== END 2024-12-08 21:04 | disposition home or self-care (01) ==
PROVIDERS: Emergency Provider Preventive Medicine Aerospace Medicine
DX: M54.41 Lumbago with sciatica, right side (principal); E11.9 Type 2 diabetes mellitus without complications; I10 Essential (primary) hypertension; Z79.4 Long term (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; G47.33 Obstructive sleep apnea (adult) (pediatric); Z99.89 Dependence on other enabling machines and devices; E78.00 Pure hypercholesterolemia, unspecified
CPT/HCPCS: 96372; 99283; A9270; J1885

== ENCOUNTER 2024-12-14 20:26 | Inpatient (IN) | payer OTHER, SELFPAY ==
--- NOTE | ~2024-12-14 | US_ITS ---
US renal BI Ordering provider: Debora Zepeda PA-C History: . hypodensity in the left kidney on CT . Comparison: None. Technique: Ultrasound bilateral kidneys. Findings: RIGHT KIDNEY: Measures 12.8x 5.6x 7.6 cm in length which is normal in size. No renal cysts. No renal mass or visualized echogenic stones. Otherwise, normal echotexture and contour. No hydronephrosis. No rmal renal cortical thickness. LEFT KIDNEY: Measures 14.6x 7.5x 5.8 cm in length which is normal in size. No renal cysts. No renal m ass or visualized echogenic stones. Otherwise, normal echotexture and contour. No hydronephrosis. Nor mal renal cortical thickness. The hypodensity seen on CT is not demonstrated on this study. Follow-up advised. BLADDER: Normal. Ureteral jets were not seen bilaterally. IMPRESSION: No definite abnormality seen in both kidneys. The mentioned hypodensity seen on CT is not demonstrated in the left kidney. Follow-up advised. Reviewed, dictated and finalized at location A. IMPRESSION: No definite abnormality seen in both kidneys. The mentioned hypodensity seen on CT is not demonstrated in the left kidney. Fo llow-up advised.
--- OUTSIDE RECORDS SUMMARY | 2024-12-14 20:28 | XMS_ITS | Clinical Summary ---
Author Organization [facility] Address [address] [place] [address] Phone Care Team Providers Care Human Resource Management Instructor Name Role Phone Masoud Hayes MD Primary Care Provider [phone] Allergies Active Allergy Reactions Criticality Noted Date Comments Amlodipine Nausea and Vomiting Low 07/31/2023 Amoxicillin-Pot Clavulanate Nausea and Vomiting Low 07/31/2023 Glipizide Nausea and Vomiting Low 07/31/2023 Hydrochlorothiazide Nausea and Vomiting Low 023 Hydrocodone Nausea and Vomiting Low 07/31/2023 Liraglutide Nausea and Vomiting Low 07/31/2023 Metformin Nausea and Vomiting Low 07/31/2023 Medications diphenhydrAMIN E hcl (UNISOM SLEEPGELS) 50 mg Oral capsule Take 50 mg by mouth Daily LATE. Active loratadine (CLARITIN) 10 mg Oral tablet Take 10 mg by mouth daily. Active lisinopril (PRINIVIL) 20 mg Oral tabletIndicati ons:Dyspnea,Ed sukhjinder,Hyperlipid emia,Diabetes mellitus (CMS/HCC),HTN (hypertension) Take 1 Tab by mouth daily. 90 Tab 1 2 Active cetirizine (ZyrTEC) 10 mg tablet Take 1 Tablet (10 mg) by mouth daily. 30 Tablet 08/13/2022 2:47 PM RESIDENT SERVICES MANAGER 3 Active amLODIPine (NORVASC) 2.5 mg tablet Take 1 Tablet (2.5 mg) by mouth daily in the morning. 90 Tablet 05/29/2023 5:55 PM CDT 3 Active cyclobenzaprin e (FLEXERIL) 5 mg Tablet TAKE 1-2 TABLETS BY MOUTH NIGHTLY TO REDUCE MUSCLE CRAMPS 60 Tablet 3 07/10/2023 3:38 PM RESIDENT SERVICES MANAGER 3 Active hydroxychloroq uine (PLAQUENIL) 200 mg tablet TAKE 2 TABLETS BY MOUTH ONCE DAILY 60 Tablet 3 07/10/2023 3:38 PM RESIDENT SERVICES MANAGER 3 Active mycophenolate mofetil (CELLCEPT) 500 mg tablet TAKE 3 TABLETS BY MOUTH TWICE DAILY 180 Tablet 4 07/10/2023 3:38 PM RESIDENT SERVICES MANAGER 3 Active insulin glargine (LANTUS) 100 unit/mL [...] for pain 30 Tablet 07/13/2024 12:19 PM RESIDENT SERVICES MANAGER 4 Active methylPREDNISo lone (Medrol, Marvel,) 4 mg Tablets, Dose Pack [...] 3 Active fluticasone propionate (FLONASE) 50 mcg/spray [place], Suspension nasal inhaler Administer 2 Sprays in each nostril 1 time daily as needed. 3 Active folic acid (FOLVITE) 1 mg tablet 4 Active gabapentin (NEURONTIN) 300 mg capsule 4 Active glucagon (BAQSIMI) 3 mg/spray [place], Non-Aerosol Administer 1 [place] in each nostril. 4 Active insulin glargine-yfgn [...] mg Tablet, Delayed Release (E.C.) 4 Active medroxyPROGEST ERone (Provera) 10 mg tablet Take 1 Tablet (10 mg) by mouth from the 1st to the 10th of the month. 30 Tablet 2 05/25/2024 1:28 PM CDT 4 Active predniSONE (DELTASONE) 10 mg tablet Take 4 Tablets (40 mg) by mouth daily. 120 Tablet 3 09/11/2024 3:51 PM RESIDENT SERVICES MANAGER 4 Active venlafaxine (EFFEXOR XR) 150 mg Extended Release 24 hour capsule Take 1 capsule (150 mg total) by mouth daily 30 Capsule 07/13/2024 12:19 PM RESIDENT SERVICES MANAGER 4 Active tirzepatide (Mounjaro) 10 mg/0.5 mL Pen Injector Inject 10 mg under the skin every 7 days 2 mL 3 09/29/2024 4:41 PM RESIDENT SERVICES MANAGER 4 Active isosorbide dinitrate (ISORDIL) 5 mg [...] 3 10/20/2024 10:04 AM CDT 5 Active budesonide-for moteroL (SYMBICORT) 160-4.5 mcg/actuation HFA Aerosol Inhaler Inhale 2 puffs by mouth 2 (two) times a day. Rinse mouth with water after use. Do not swallow. 10.2 Gram 11 11/02/2024 2:13 PM CDT 5 Active inhalational spacing device (Easi[employer]ent [employer] Chamber) Spacer USE WITH INHALER. 1 Each 11/02/2024 2:13 PM CDT 5 Active sulfamethoxazo le-trimethopri m (BACTRIM DS) 800-160 mg tablet Take 1 tablet (160 mg of trimethoprim total) by mouth 3 (three) times a week 12 Tablet 1 11/02/2024 2:13 PM CDT 5 Active traMADol (ULTRAM) 50 mg tablet Take 1 tablet (50 mg total) by mouth every 8 (eight) hours as needed for pain. 30 Tablet 11/18/2024 12:24 PM CDT 5 Active lidocaine (LIDODERM) 5 % Adhesive Patch, Medicated Apply 1 patch topically daily; leave on most painful area for up to 12 hrs 30 Patch 12/09/2024 12:37 PM CDT 5 Active doxycycline hyclate (VIBRAMYCIN) 100 mg capsule Take 1 Capsule (100 mg) by mouth 2 times daily for 10 days. 20 Capsule 11/30/2024 4:18 PM CDT 5 12/11/19 25 Active Problems Patient Care Coordination No te Formatting of this note migh t be different from the original. Bowling Ball Engraver: Dr. 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 Not on file Not on file Last Filed Vital Signs Vital Sign Reading Time Taken Comments Blood Pressure 128/90 06/21/2024 10:51 AM RESIDENT SERVICES MANAGER Pulse 82 03/22/2012 2:23 PM CDT Temperature - - Respiratory Rate 18 03/22/2012 2:23 PM CDT Oxygen Saturation 97% 03/22/2012 1:51 PM CDT Inhaled Oxygen Concentration - - Weight 141.2 kg (311 lb 3.2 oz) 024 10:51 AM RESIDENT SERVICES MANAGER Height 167.6 cm (5' 6 ) 05/17/2024 11:2 7 AM CDT Body Mass Index 50.23 05/17/2024 11:27 AM CDT Plan of Treatment Upcoming Encounters Date Type Department Care Team (Late st Contact Info) Description 12/29/2024 11:30 AM CDT Office Visit [facility] BASE CLOTH INSPECTOR Medical [facility] [address] [facility] [address] [place] [address] Kendrick Teague MD [address] [facility] [address] [place] [address] Health Maintenance Due Date Last Done Comments [...] PAP (05/17/2024 4:26 PM CDT) COMMENT (PAP): [facility] Comment: This order for age-based cervical cancer and STI screening follows ACOG guidelines(PB 168, 140, WYE088). See individual assays for performing site location. CLINICAL INFORMATION [facility] Comment:None given LAST MENSTRUAL PERIOD [facility] [place] Comment:10/02/2023 PREV PAP: [facility] [place] Comment:NONE GIVEN PREV BX: [facility] [place] Comment:NONE GIVEN SOURCE [facility] [place] Comment:Endocervix ADEQUACY: [facility] Comment: Satisfactory for evaluation. Endocervical/transformation zone component absent. PAP INTERP [facility] Comment: Cytology Results: Negative for intraepithelial lesion or malignancy. COMMENT (PAP TEST) Q uiSECUREtracRikki Ramirez Comment: This Pap test has been evaluated with computer assisted technology. LABORER CONSTRUCTION OR LEAK GANG: Ni Ramirez Comment: MEF, CT(ASCP) CT screening location: [place] [address] [place] [address] EXPLANATORY NOTE Que ShipeyRikki Ramirez Comment: EXPLANATORY NOTE: The Pap is [...] information. HPV E6/E7 Not Detected Not Detected [facility] Comment: Methodology: Outside Sales Professional-Mediated Amplification This assay detects E6/E7 viral messenger RNA (mRNA) from 14 high-risk HPV types (16,18,31,33,35,39,45,51,52,56,58,59,66,68). Cervical sources are required for HPV testing. If a vaginal source from a patient who has had a total hysterectomy with removal of cervix was submitted, please contact the testing laboratory for alternative testing options. For additional information, please refer to http://education.ClearSaleing/faq/JUE323t0 (This link if provided for information/ educational purposes only.) Test Performed at: [facility] [address] [id number] Torin GUZMAN Genital SWAB OF ENDOCERVIX / Unknown 05/17/2024 4:26 PM CDT 05/18/2024 3:48 AM CDT us Kendrick Teague MD PATHOLOGY/CYTOLOGY ORDERABLE S Final Result [facility] [phone] [facility] [address] [id number] from Last 3 Months or Most Recently Relevant to Health Maintenance Insurance [place] [id number] RX [employer] Member Subscriber Plan / Payer (Ef fective 2023-Present) Name:Walt Huitron Relation to Subscriber:Self Name:Walt Huitron Subscriber ID:Not on file Payer ID:Not on file Group ID:[id number] Type:RX Commercial Address: [address] [employer] (INTERNAL) [facility] Care Teams Human Resource Management Instructor Relationship Specialty Start Date End Date Masoud Hayes MD PCP - General Internal Medicine 03/08/12
--- OUTSIDE RECORDS SUMMARY | 2024-12-14 20:28 | XMS_ITS | Clinical Summary ---
[facility] Address [address] [place] [address] Care Team Providers Care Cash Analyst Name Role Phone Ann Serrano MD Unavailable [phone] Lynn Rodriguez MD Primary Care Provider Allergies [...] BY MOUTH DAILY 90 tablet 3 Active atorvastatin (LIPITOR) 20 mg tablet TAKE [...] s:Uncontrolled type 2 diabetes mellitus with hyperglycemia (HCC),alf (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) Use for [...] NEBULIZER EVERY 6 HOURS NEEDED FOR WHEEZING (JOURNEYMAN PIPEFITTER RECOMMENDS NOT EXCEEDING 4 VIALS/DAY) 150 mL [...] (BMI) of 45.0 to 49.9 in adult INJECT THE CONTENTS OF ONE PEN SUBCUTANEOUSLY WEEKLY DIRECTED 2 mL 025 Active Vitamin D2 1,250 mcg (50,000 unit) capsule TAKE 1 CAPSULE BY MOUTH TWICE WEEKLY 26 capsule 3 025 Active lidocaine (LIDODERM) 5 % Apply 1 patch topically daily; leave on most painful area for up to 12 hrs 025 Active traMADoL (ULTRAM) 50 mg tablet [...] (BMI) of 45.0 to 49.9 in adult Inject 0.5 mL (12.5 mg total) under the skin every 7 days 2 mL 3 025 2024 Discontinued doxycycline (VIBRAMYCIN) 100 mg capsuleIndicatio ns:Acute non-recurrent frontal sinusitis Take 1 tablet/capsule (100 mg total) by mouth 2 (two) times a day for 10 days 20 tablet/cap rudy 025 2024 Active Problems Problem Noted Date Diagnosed Date Uncontrolled diabetes mellitus with hyperglycemi a 08/14/2024 Acute hypoxic respiratory failure 08/13/2024 Assessment & Plan (08/26/2024 6:09 PM LANGUAGES AND LITERATURE INSTRUCTOR): Recent hospitalization likely for CAP followed by RSV Symptoms resolved Impaired mobility 07/29/2024 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 07/13/2024 ferry terminal 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 user 07/13/2024 Assessment & Plan (07/13/2024 12:22 PM LANGUAGES AND LITERATURE INSTRUCTOR): - Further complicates diabetes management Need for vaccination 04/06/2024 Assessment & Plan (04/06/2024 4:14 PM CDT): Received pneumonia vaccine today history of pneumonia currently no complaints last bout in 08/2023 Head trauma 09/04/2022 Assessment & Plan (09/04/2022 2:35 PM LANGUAGES AND LITERATURE INSTRUCTOR): No signs of neurological abnormality on examination [...] booster Assessment & Plan (06/24/2021 3:28 PM LANGUAGES AND LITERATURE INSTRUCTOR): Pito vaccine 10/05/2020 and Moderna booster Jun 2021 Major depressive disorder 04/22/2021 Assessment & Plan (01/06/2024 9:09 AM CDT): Stable on current medication regimen. Assessment & Plan (01/17/2022 10:21 AM CDT): Stable on current medication regimen. Assessment & Plan (07/17/2021 2:07 PM LANGUAGES AND LITERATURE INSTRUCTOR): Better controlled on venlafaxine. Assessment & Plan (04/22/2021 8:25 AM CDT): Restart venlafaxine and warned of side effects and call back if any develop or if no improvement. Type 2 diabetes mellitus with hyperlipidemia 06/2020 Assessment & Plan (01/06/2024 9:09 AM CDT): A1c above goal. Will start Mounjaro soon. Continue other medications as directed by her overlock sleeve setter. Diet exercise discussed. Hopefully may be able to wean prednisone in the near future as well. Assessment & Plan (06/15/2023 10:48 AM LANGUAGES AND LITERATURE INSTRUCTOR): She knows that the steroids will exacerbate her hyperglycemia and should be in contact with her overlock sleeve setter for management. Assessment & Plan (06/08/2023 5:26 PM LANGUAGES AND LITERATURE INSTRUCTOR): Poor control of her diabetes prior to this hospitalization and even worse now on prednisone. Follow-up with her overlock sleeve setter for management. Diet exercise weight loss recommended. Assessment & Plan (01/21/2023 9:50 AM CDT): Blood sugars remain above goal. Hopefully the recent addition of mounjaro will help significantly. Discuss up titration of this and her mealtime insulin with her overlock sleeve setter. Diet exercise discussed. Check A1c and fasting blood sugar before next visit. Assessment & Plan (08/02/2022 12:16 PM LANGUAGES AND LITERATURE INSTRUCTOR): A1c poorly controlled. Importance of diet exercise weight loss discussed at length. Continue her Ozempic and insulin and needs to contact her overlock sleeve setter soon as possible for guidance on further therapy. Assessment & Plan (01/17/2022 10:22 AM CDT): Patient aware A1c grossly uncontrolled. Must work on diet exercise and weight loss. She has to get back on her insulin and should discuss this today with her overlock sleeve setter. Risks posed her health with poor glycemic control discussed. Assessment & Plan (07/13/2020 8:34 AM LANGUAGES AND LITERATURE INSTRUCTOR): A1c above goal. Importance of diet exercise weight loss discussed. Continue current medication regimen and follow-up with her overlock sleeve setter as they direct. 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 Unfortunately lab work and skin biopsy inconclusive. Discussed possible rheumatology 2nd opinion here at [facility] and patient will call back if desired. Assessment & Plan (06/15/2023 10:48 AM LANGUAGES AND LITERATURE INSTRUCTOR): Certainly making a case for underlying vasculitis [...] condition. Assessment & Plan (06/20/2020 9:35 AM LANGUAGES AND LITERATURE INSTRUCTOR): Unclear etiology but I am thinking of [...] tolerated Assessment & Plan (08/26/2024 6:10 PM LANGUAGES AND LITERATURE INSTRUCTOR): Body mass index is 49.1 kg/m . BMI Follow-up includes: nutrition counseling, exercise counseling, and education provided. Assessment & Plan (07/13/2024 12:20 PM LANGUAGES AND LITERATURE INSTRUCTOR): - Increase Mounjaro to 10 mg weekly [...] tolerated. Assessment & Plan (06/08/2023 5:23 PM LANGUAGES AND LITERATURE INSTRUCTOR): Patient is encouraged to lose weight with a combination of caloric reduction and increased exercise. Various strategies discussed. The long-term risks associated with continued morbid obesity discussed. Assessment & Plan (09/04/2022 2:34 PM LANGUAGES AND LITERATURE INSTRUCTOR): Patient is encouraged to lose weight with a combination of caloric reduction and increased exercise. Various strategies discussed. The long-term risks associated with continued morbid obesity discussed. Assessment & Plan (08/02/2022 12:16 PM LANGUAGES AND LITERATURE INSTRUCTOR): Patient is encouraged to lose weight with [...] discussed. Assessment & Plan (07/13/2020 8:34 AM LANGUAGES AND LITERATURE INSTRUCTOR): Patient is encouraged to lose weight with a combination of caloric reduction and increased exercise. Various strategies discussed. The long-term risks associated with continued morbid obesity discussed. Assessment & Plan (06/20/2020 9:35 AM LANGUAGES AND LITERATURE INSTRUCTOR): Patient is encouraged to lose weight with a combination of caloric reduction and increased exercise. Various strategies discussed. The long-term risks associated with continued morbid obesity discussed. Assessment & Plan (07/08/2019 8:44 AM LANGUAGES AND LITERATURE INSTRUCTOR): Patient is encouraged to lose weight with a combination of caloric reduction and increased exercise. Various strategies discussed. The long-term risks associated with continued morbid obesity discussed. Irregular menses 06/03/2019 Allergic rhinitis 07/05/2018 Assessment & Plan (02/23/2023 1:30 PM CDT): Nasal saline spray (Simply saline, [employer], [place], [place]) 2 second sprays or 2 squeezes into [...] daily Assessment & Plan (07/17/2021 2:07 PM LANGUAGES AND LITERATURE INSTRUCTOR): Claritin montelukast. Assessment & Plan (04/22/2021 8:25 AM CDT): Currently using Claritin and montelukast. She has not been trying Flonase as her nose is being to congested. Recommended sinus rinses her using a hot warm shower. Could also try Afrin for few days. Assessment & Plan (07/08/2019 8:43 AM LANGUAGES AND LITERATURE INSTRUCTOR): Add montelukast to her [place]. She struggles with nasal sprays due to chronic congestion. Assessment & Plan (07/05/2018 9:24 AM LANGUAGES AND LITERATURE INSTRUCTOR): Try Afrin for 3 days along with [...] mg/dL Assessment & Plan (07/13/2024 12:21 PM LANGUAGES AND LITERATURE INSTRUCTOR): - Last LDL 103, TG 308, TC [...] triglycerides. Assessment & Plan (09/12/2023 8:12 PM LANGUAGES AND LITERATURE INSTRUCTOR): Continue statin and optimize glycemic control Assessment & Plan (02/16/2023 8:14 PM CDT): Continue statin and optimize glycemic control Assessment & Plan (01/21/2023 9:50 AM CDT): Continue her atorvastatin and work on diet exercise and check lipids and LFTs before next visit. Assessment & Plan (08/02/2022 12:15 PM LANGUAGES AND LITERATURE INSTRUCTOR): Well controlled on current therapy and will check a lipid panel and LFTs in 6 months. Assessment & Plan (01/17/2022 10:21 AM CDT): Well controlled on current therapy and will check a lipid panel and LFTs in 6 months. Assessment & Plan (07/17/2021 2:06 PM LANGUAGES AND LITERATURE INSTRUCTOR): Well controlled on current therapy and will check a lipid panel and LFTs in 6 months. Assessment & Plan (06/24/2021 3:28 PM LANGUAGES AND LITERATURE INSTRUCTOR): Continue statin and optimize glycemic control Assessment & Plan (12/19/2020 7:53 AM CDT): Continue statin and optimize glycemic control Assessment & Plan (07/13/2020 8:34 AM LANGUAGES AND LITERATURE INSTRUCTOR): Well controlled on current therapy and will check a lipid panel and LFTs in 6 months. Assessment & Plan (06/08/2020 8:31 AM LANGUAGES AND LITERATURE INSTRUCTOR): LDL within goal. Continue statin and optimize glycemic control Assessment & Plan (07/08/2019 8:42 AM LANGUAGES AND LITERATURE INSTRUCTOR): Well controlled on current therapy and will check a lipid panel and LFTs in 12 months. Assessment & Plan (09/01/2018 2:22 PM LANGUAGES AND LITERATURE INSTRUCTOR): Continue statin, optimize glycemic control Assessment & Plan (07/05/2018 9:23 AM LANGUAGES AND LITERATURE INSTRUCTOR): Well controlled on current therapy and will check a lipid panel and LFTs in 6 months. Assessment & Plan (08/26/2017 4:27 PM LANGUAGES AND LITERATURE INSTRUCTOR): Start atorvastatin and check lipids and LFTs in 3-4 months. Call back for results. Vitamin D deficiency 07/02/2017 Assessment & Plan (07/13/2024 12:22 PM LANGUAGES AND LITERATURE INSTRUCTOR): - Last Vitamin D 42 (12/2023), replete [...] week Assessment & Plan (09/12/2023 8:12 PM LANGUAGES AND LITERATURE INSTRUCTOR): Continue long-term supplement Assessment & Plan (02/16/2023 8:14 PM CDT): Continue long-term supplement Assessment & Plan (08/02/2022 12:15 PM LANGUAGES AND LITERATURE INSTRUCTOR): Continue current supplementation and check level in 1 year. Assessment & Plan (07/17/2021 2:06 PM LANGUAGES AND LITERATURE INSTRUCTOR): Continue current supplementation and check level in 1 year. Assessment & Plan (06/24/2021 3:29 PM LANGUAGES AND LITERATURE INSTRUCTOR): Continue long-term supplement Assessment & Plan (12/19/2020 7:53 AM CDT): Continue long-term supplement Assessment & Plan (07/13/2020 8:33 AM LANGUAGES AND LITERATURE INSTRUCTOR): Continue current supplementation and check level in 1 year. Assessment & Plan (06/08/2020 8:31 AM LANGUAGES AND LITERATURE INSTRUCTOR): Vitamin-D level within goal, continue chronic supplement Assessment & Plan (07/08/2019 8:42 AM LANGUAGES AND LITERATURE INSTRUCTOR): Continue current supplementation and check level in 1 year. Assessment & Plan (06/03/2019 8:24 AM CDT): Recently ran out of supplement, so we will restart and check her level today. Also check B12 Assessment & Plan (09/01/2018 2:22 PM LANGUAGES AND LITERATURE INSTRUCTOR): Continue supplement Assessment & Plan (07/05/2018 9:23 AM LANGUAGES AND LITERATURE INSTRUCTOR): Continue current supplementation and check level in 1 year. Assessment & Plan (08/26/2017 4:26 PM LANGUAGES AND LITERATURE INSTRUCTOR): Continue current supplementation and check level in [...] Component Value Date HGBA1C 11.7 07/13/2024 Per [place] [employer], goal A1c is less 7% [...] etc. Assessment & Plan (08/26/2024 6:10 PM LANGUAGES AND LITERATURE INSTRUCTOR): Assessment & Plan (07/13/2024 12:20 PM LANGUAGES AND LITERATURE INSTRUCTOR): - Diabetes is complicated by hyperlipidemia, hypertension, morbid obesity and chronic steroid use. Uncontrolled. Lab Results Component Value Date HGBA1C 11.7 07/13/2024 Per [place] [employer], goal A1c is less 7% [...] in prescriptions for both Dexcom G7 and AssociaStyle Silva 3 CGM for olivares checking. Also [...] diet Continue current medication follows endo Dr. Serarno recently seen 03/2024 changes made: Increase Lantus to 45 units bid Increase Lyumjev to 15 units with meals, plus sliding scale. She should notify him of glucoses so we can adjust therapy, as indicated. Return visit 3 months to see the BED PLACEMENT COORDINATOR/PA, 6 months to see me. Assessment & [...] Component Value Date HGBA1C 12.5 11/17/2023 Per [place] [employer], goal A1c is less 7% [...] Component Value Date HGBA1C 12.5 11/17/2023 Per [place] [employer], goal A1c is less 7% [...] that I am available via phone or [employer] [facility] if they have any concerns for hypo/hyperglycemia, medication refills, etc. Assessment & Plan (09/12/2023 8:13 PM LANGUAGES AND LITERATURE INSTRUCTOR): Very high glucoses; multifactorial including steroid therapy, [...] daily. Assessment & Plan (06/24/2021 3:29 PM LANGUAGES AND LITERATURE INSTRUCTOR): Much improved but needs a little more basal insulin. Assessment & Plan (12/19/2020 7:53 AM CDT): Multiple medications, but now requires insulin. We can gradually adjust her Lantus based on her clinical response. Assessment & Plan (06/08/2020 8:32 AM LANGUAGES AND LITERATURE INSTRUCTOR): Glucoses somewhat better now that she is [...] motivator. Assessment & Plan (07/08/2019 8:43 AM LANGUAGES AND LITERATURE INSTRUCTOR): Continue increased dose of Ozempic and also continue Invokana. Importance of dietary changes increase exercise weight loss discussed. Follow-up with her overlock sleeve setter as they direct. Assessment & Plan (06/03/2019 8:25 AM CDT): Somewhat suboptimal, would benefit from increasing Ozempic and continuing efforts with diet and lifestyle. Needs follow-up labs Assessment & Plan (09/01/2018 2:22 PM LANGUAGES AND LITERATURE INSTRUCTOR): Glucoses a little high, but she has bruising with Victoza so she may benefit by changing to weekly Ozempic, which is a little stronger, as well. Jardiance is been ineffective, so we may need to provide preauthorization for Invokana Assessment & Plan (07/05/2018 9:23 AM LANGUAGES AND LITERATURE INSTRUCTOR): A1c above goal. We stressed importance of increased exercise, reduce calories, weight loss. Could consider switching Victoza to ozempic. Otherwise does not tolerate metformin or sulfonylureas. May need insulin soon. She is directed to follow up with her overlock sleeve setter more quickly than her next scheduled appointment in November. Assessment & Plan (08/26/2017 4:26 PM LANGUAGES AND LITERATURE INSTRUCTOR): Continue current medication regimen and follow up with her overlock sleeve setter as they direct. Low carb diet weight loss recommended. Check blood sugars once daily. Start atorvastatin and check lipids and LFTs in 3-4 months. Anxiety state 12/17/2013 Overview (11/07/2016): ANXIETY STATE NOS Benign hypertension 12/17/2013 Overview (11/07/2016): BENIGN HYPERTENSION Assessment & Plan (07/13/2024 12:21 PM LANGUAGES AND LITERATURE INSTRUCTOR): - Above goal today - Encouraged her [...] monitor. Assessment & Plan (06/08/2023 5:25 PM LANGUAGES AND LITERATURE INSTRUCTOR): Stop amlodipine with current issues of swelling. Pressure currently well controlled and should monitor at home Assessment & Plan (01/21/2023 9:49 AM CDT): Blood pressure well controlled on lisinopril Assessment & Plan (09/04/2022 2:34 PM LANGUAGES AND LITERATURE INSTRUCTOR): Blood pressure well controlled on her lisinopril. Assessment & Plan (08/02/2022 12:15 PM LANGUAGES AND LITERATURE INSTRUCTOR): Increase lisinopril to 20 mg daily. Monitor blood pressure at home call back if no improvement. Assessment & Plan (01/17/2022 10:21 AM CDT): Well controlled on the current regimen. Avoidance of salt, proper body weight, and routine exercise recommended. Assessment & Plan (07/17/2021 2:06 PM LANGUAGES AND LITERATURE INSTRUCTOR): Well controlled on the current regimen. Avoidance of salt, proper body weight, and routine exercise recommended. Assessment & Plan (04/22/2021 8:24 AM CDT): Well controlled on the current regimen. Avoidance of salt, proper body weight, and routine exercise recommended. Assessment & Plan (07/13/2020 8:34 AM LANGUAGES AND LITERATURE INSTRUCTOR): Well controlled on the current regimen. Avoidance of salt, proper body weight, and routine exercise recommended. Assessment & Plan (07/08/2019 8:42 AM LANGUAGES AND LITERATURE INSTRUCTOR): Well controlled on the current regimen. Avoidance of salt, proper body weight, and routine exercise recommended. Assessment & Plan (09/01/2018 2:21 PM LANGUAGES AND LITERATURE INSTRUCTOR): Blood pressure close to target, working on diet and lifestyle Assessment & Plan (07/05/2018 9:23 AM LANGUAGES AND LITERATURE INSTRUCTOR): Well controlled on the current regimen. Avoidance of salt, proper body weight, and routine exercise recommended. Assessment & Plan (08/26/2017 4:25 PM LANGUAGES AND LITERATURE INSTRUCTOR): Well controlled on the current regimen. Avoidance of salt, proper body weight, and routine exercise recommended. Anemia 12/29/2012 Extrinsic asthma 08/19/2012 Overview (06/03/2019): Description: frequent flares Assessment & Plan (08/26/2024 6:08 PM LANGUAGES AND LITERATURE INSTRUCTOR): Recent exacerbation due to CAP followed by RSV Symptoms improved Continue present plan and medication--albuterol prn, montelukast Assessment & Plan (07/13/2020 8:36 AM LANGUAGES AND LITERATURE INSTRUCTOR): Doing well on her S [id number]|2024-12-14 22:04:00|2024-12-14 22:04:00|ED_ITS|[facility]NAM|Health Information Management|[id number]|"HPI - General Adult General Chief complaint: Nausea/Vomiting/Diarrhea Stated complaint: stomach cramps bloody stools Time Seen by Provider: 12/14/24 20:48 History of Present Illness HPI narrative: 49-year-old female patient with a history of insulin-dependent type 2 diabetes, hypertension, obstructive sleep apnea, elevated cholesterol, vasculitis and autoimmune disorder presenting for nausea vomiting abdominal pain bloody diarrhea x 1 day. . Symptoms started 430am on 12/13. Patient has pain that is worse in the left lower quadrant is crampy and comes and goes. Her diarrhea has had blood mixed into the stool as well as blood on the toilet paper when wiping. She has had chills but no fevers. No chest pain difficulty breathing or urinary symptoms. Patient had been in the process of further workup of her vasculitis however her music composer in April and she has not established with a new 1 yet. Related Data Home Medications Medication Instructions Recorded Confirmed Last Taken Type atorvastatin 20 mg tablet 20 mg PO HS 10/15/20 10/03/24 05/24/23 History loratadine 10 mg tablet (Claritin) 10 mg PO DAILY 10/15/20 10/03/24 05/24/23 History montelukast 10 mg tablet 10 mg PO HS 10/15/20 10/03/24 Unknown History insulin lispro-aabc 100 unit/mL 1 sliding scale dose subcut AC 05/25/23 10/03/24 05/24/23 History subcutaneous pen (Lyumjebernice KwikPen U-100 Insulin) tirzepatide 5 mg/0.5 mL 10 mg subcut WEEKLY 05/25/23 10/03/24 07/28/24 History subcutaneous pen injector (Stephan) venlafaxine 150 mg 150 mg PO QPM 05/25/23 10/03/24 05/24/23 History capsule,extended release 24 hr albuterol sulfate 2.5 mg/3 mL 2.5 mg inhalation DAILY PRN 08/10/23 10/03/24 Unknown History (0.083 %) solution for nebulization Shortness Of Breath cetirizine 10 mg tablet (All Day 10 mg PO DAILY 08/10/23 10/03/24 07/30/24 History Allergy (cetirizine)) ergocalciferol (vitamin D2) 50,000 unit PO .COMPLEX 08/10/23 10/03/24 07/27/24 History fluticasone propionate 50 1 spray intranasal DAILY PRN 08/10/23 10/03/24 Unknown History mcg/actuation nasal allergy symptoms spray,suspension prednisone 20 mg tablet 40 mg PO DAILY@0800 08/10/23 10/03/24 Unknown History cyclobenzaprine 10 mg tablet 10 mg PO HS 07/31/24 12/08/24 12/07/24 History diclofenac sodium 75 mg 75 mg PO BID 07/31/24 10/03/24 Unknown History tablet,delayed release folic acid 1 mg tablet 1 mg PO DAILY 07/31/24 10/03/24 Unknown History gabapentin 300 mg capsule 300 mg PO TID 07/31/24 10/03/24 Unknown History hydroxychloroquine 200 mg tablet 400 mg PO HS 07/31/24 10/03/24 Unknown History insulin glargine 100 unit/mL (3 45 unit subcut BID 07/31/24 10/03/24 07/30/24 History mL) subcutaneous pen (Lantus Solostar U-100 Insulin) lisinopril 20 mg tablet 20 mg PO DAILY 07/31/24 10/03/24 Unknown History methotrexate sodium 2.5 mg tablet 12.5 mg PO WEEKLY 07/31/24 10/03/24 07/28/24 History pantoprazole 40 mg tablet,delayed 40 mg PO DAILY 07/31/24 10/03/24 Unknown History release acetaminophen 500 mg tablet 1,000 mg PO BID 09/23/24 10/03/24 Unknown History famotidine 20 mg tablet (Acid 20 mg PO HS 09/23/24 10/03/24 Unknown History Controller) magnesium 200 mg tablet 400 mg PO DAILY 09/23/24 10/03/24 Unknown History magnesium salicylate 162.5 1 tablet PO DAILY 09/23/24 10/03/24 Unknown History mg-caffeine 50 mg tablet (Diurex) potassium 99 mg tablet 99 mg PO HS 09/23/24 10/03/24 Unknown History albuterol sulfate 90 mcg/actuation 2 puff inhalation Q8H PRN 10/03/24 10/03/24 Unknown History aerosol inhaler shortness of breath or wheezing Allergies Allergy/AdvReac Type Severity Reaction Status Date / Time amoxicillin AdvReac Unknown Nausea and Verified 12/08/24 17:46 Vomiting glipizide AdvReac Unknown NAUSEA AND Verified 12/08/24 17:46 VOMITING hydrocodone AdvReac Unknown Nausea and Verified 12/08/24 17:46 Vomiting metformin AdvReac Unknown Nausea and Verified 12/08/24 17:46 Vomiting PMFSH Past Medical History Medical History Vasculitis Depression JEREMY on CPAP Hypertension Hypercholesterolemia Diabetes Surgical History Surgical History H/O arthroscopy H/O myomectomy Family History Family History Mother Diabetes mellitus Myocardial infarction Uterine cancer Father Cancer of blood vessel Sibling Diabetes mellitus Social History Social History Smoking status: Never smoker Alcohol intake: never Drinks per week: 1 Substance use: never Substance use type: does not use Do You Feel Safe in your Home?: Yes Lack of Transportation: No Lack of Food: Never True Current Housing: I Have Housing Concerned About Future Housing: No Difficulty Paying Gas/Electric Bills: No Difficulty Paying for Meds: No Currently Unemployed: No Education: High School Diploma/GED Difficulty w/ Childcare or Family Care: No Spiritual care concerns: No Exam 2 Narrative: APPEARANCE: Morbidly obese, clearly in pain Head: atraumatic. EYES: EOMI, NOSE: Atraumatic NECK: Trachea midline RESPIRATORY: No increased rate of breathing CTAB CARDIOVASCULAR: RRR, no peripheral edema ABDOMINAL: Obese, tenderness in the left lower quadrant without guarding or rebound physical exam limited by body habitus Rectal exam: Reddish brown stool in the vault, Hemoccult positive, no external hemorrhoids MUSCULOSKELETAl: No obvious deformities NEURO: Alert. Moving 4/4 extremities SKIN:: Warm dry PSYCHIATRIC: Normal affect Course Vital Signs Vital signs: Vital Signs Temperature 98.7 F 12/14/24 20:35 Pulse Rate 114 H 12/14/24 20:35 Respiratory Rate 18 12/14/24 20:35 Pulse Oximetry 100 12/14/24 20:35 Oxygen Delivery Room Air 12/14/24 20:35 Temperature 98.7 F 12/14/24 20:35 Pulse Rate 107 H 12/14/24 20:48 Respiratory Rate 20 12/14/24 20:48 Blood Pressure 153/82 H 12/14/24 20:48 Pulse Oximetry 100 12/14/24 20:48 Oxygen Delivery Room Air 12/14/24 20:35 Medical Decision Making [facility] Narrative Medical decision making narrative: -Course: 49-year-old female with multiple medical comorbidities on chronic steroids presenting with nausea vomiting and bloody diarrhea. Tenderness in left lower quadrant. She has brownish red stool in the rectal vault that is Hemoccult positive. She is given 2 L of normal saline, antiemetics, pain medication. Workup significant for white 15. Unclear if due to chronic steroid use versus infection. Hemoglobin 12.5. BUN and creatinine baseline. Urine infection. Viral swabs negative. CT abdomen pelvis showed inflammation of the transverse colon, infectious versus inflammatory. Ischemic less likely. Lactic still pending. After fluid resuscitation patient is still tachycardic at 110s. She will be started on ceftriaxone and Flagyl to cover infectious colitis. Started on lactated Ringer maintenance fluids. Stress dose steroids were discussed with the hospitalist but we'll hold off for GI input. Patient be admitted hospital for further management. DDX includes but is not limited to: Gastroenteritis, infectious versus inflammatory colitis, vasculitis, viral syndrome Independent EKG interpretation: Rhythm [sinus], Rate [108], [place] -[normal], [place] -[normal], QRS [narrow], QTC [normal], T waves -[negative for concerning inversions], ST Segments - [Negative for concerning elevations] Final interpretations: Sinus tachycardia Vital Signs Vital Signs: Vital Signs Temperature 98.7 F 12/14/24 20:35 Pulse Rate 114 H 12/14/24 20:35 Respiratory Rate 18 12/14/24 20:35 Pulse Oximetry 100 12/14/24 20:35 Oxygen Delivery Room Air 12/14/24 20:35 Temperature 98.7 F 12/14/24 20:35 Pulse Rate 107 H 12/14/24 20:48 Respiratory Rate 20 12/14/24 20:48 Blood Pressure 153/82 H 12/14/24 20:48 Pulse Oximetry 100 12/14/24 20:48 Oxygen Delivery Room Air 12/14/24 20:35 Lab Data 12/14/24 21:35 12/14/24 21:34 Labs: Lab Results 12/14/24 12/14/24 12/14/24 Range/Units 21:34 21:35 21:40 WBC 15.3 H (4.5-10.0) K/mm3 RBC 4.35 (4.2-5.4) M/mm3 Hgb 12.5 (12.0-15.0) g/dL Hct 40.2 (37.0-47.0) % MCV 92.4 (80-100) fl MCH 28.7 (26-34) pg MCHC 31.1 L (32-36) g/dl RDW 17.2 H (11.5-14.5) % Plt Count 349 (150-375) k/mm3 MPV 10.5 H (7.4-10.4) fl Immature Gran % (Auto) 1.6 H (0-0.5) % Neut % (Auto) 76.8 H (45.5-73.1) % Lymph % (Auto) 11.3 L (18.3-44.2) % [place] % (Auto) 9.1 H (2.6-8.5) % Eos % (Auto) 0.7 (0-4.4) % Baso % (Auto) 0.5 (0.2-1.2) % Lymph # (Auto) 1.73 (0.9-3.2) K/mm3 [place] # (Auto) 1.4 H (0.1-0.6) K/mm3 Eos # (Auto) 0.1 (0-0.3) K/mm3 Baso # (Auto) 0.1 (0.0-0.1) K/mm3 Abs Immat Gran (auto) 0.25 H (0.00-0.031) K/mm3 Absolute Neuts (auto) 11.7 H (1.3-6.7) K/mm3 Absolute Nucleated RBC 0.000 (0.0-0.012) K/mm3 Nucleated RBC % 0.0 (0.0-0.2) % PT 12.3 (11.1-14.7) Seconds INR 0.9 APTT 22.9 (22.3-36.8) Seconds Sodium 137 (137-145) mmol/L Potassium 4.0 (3.4-5.0) mmol/L Chloride 102 (98-107) mmol/L Carbon Dioxide 26 (22-30) mmol/L Anion Gap 9 (4-12) mmol/L BUN 16 (7-17) mg/dL Creatinine 0.59 L (0.7-1.0) mg/dL Estim Creat Clear Calc Not Reportable Estimated GFR > 60 (59 - ) Glucose 107 (65-110) mg/dL Calcium 8.8 (8.4-10.2) mg/dL Total Bilirubin 0.9 (0.2-1.3) mg/dL AST 35 (14-36) U/L ALT 58 H (6-35) U/L Alkaline Phosphatase 49 (38-126) U/L Total Protein 7.0 (6.3-8.2) g/dL Albumin 4.0 (3.5-5.1) g/dL Lipase 155 (23-300) U/L Urine Color Yellow (Yellow) Urine Appearance Cloudy H (Clear) Urine pH 7.0 (5.0-9.0) Ur Specific [place] 1.008 (1.001-1.035) Urine Protein Negative (Negative) mg/dL Urine Glucose (UA) Negative (Negative) mg/dL Urine Ketones Negative (Negative) mg/dL Ur Blood (Man) Negative (Negative) Urine Nitrate Negative (Negative) Urine Bilirubin Negative (Negative) Urine Urobilinogen 0.2 (<2.0) mg/dL Leukocyte Esterase Rfl Negative (Negative) JAYDEN/UL Urine RBC 0-2 (0-2) /hpf Urine WBC 0-5 (0-3) /hpf Ur Squamous Epith Cells None seen (Few) /hpf Urine Bacteria None seen /hpf Urine Casts 0-2 POC Urine HCG, Qual (Negative) Influenza A (RT-PCR) Pending Influenza B (RT-PCR) Pending RSV (RT-PCR) Pending SARS-CoV-2 RNA (RT-PCR) Pending Blood Type Pending Antibody Screen Pending 12/14/24 Range/Units 21:43 WBC (4.5-10.0) K/mm3 RBC (4.2-5.4) M/mm3 Hgb (12.0-15.0) g/dL Hct (37.0-47.0) % MCV (80-100) fl MCH (26-34) pg MCHC (32-36) g/dl RDW (11.5-14.5) % Plt Count (150-375) k/mm3 MPV (7.4-10.4) fl Immature Gran % (Auto) (0-0.5) % Neut % (Auto) (45.5-73.1) % Lymph % (Auto) (18.3-44.2) % [place] % (Auto) (2.6-8.5) % Eos % (Auto) (0-4.4) % Baso % (Auto) (0.2-1.2) % Lymph # (Auto) (0.9-3.2) K/mm3 [place] # (Auto) (0.1-0.6) K/mm3 Eos # (Auto) (0-0.3) K/mm3 Baso # (Auto) (0.0-0.1) K/mm3 Abs Immat Gran (auto) (0.00-0.031) K/mm3 Absolute Neuts (auto) (1.3-6.7) K/mm3 Absolute Nucleated RBC (0.0-0.012) K/mm3 Nucleated RBC % (0.0-0.2) % PT (11.1-14.7) Seconds INR APTT (22.3-36.8) Seconds Sodium (137-145) mmol/L Potassium (3.4-5.0) mmol/L Chloride (98-107) mmol/L Carbon Dioxide (22-30) mmol/L Anion Gap (4-12) mmol/L BUN (7-17) mg/dL Creatinine (0.7-1.0) mg/dL Estim Creat Clear Calc Estimated GFR (59 - ) Glucose (65-110) mg/dL Calcium (8.4-10.2) mg/dL Total Bilirubin (0.2-1.3) mg/dL AST (14-36) U/L ALT (6-35) U/L Alkaline Phosphatase (38-126) U/L Total Protein (6.3-8.2) g/dL Albumin (3.5-5.1) g/dL Lipase (23-300) U/L Urine Color (Yellow) Urine Appearance (Clear) Urine pH (5.0-9.0) Ur Specific [place] (1.001-1.035) Urine Protein (Negative) mg/dL Urine Glucose (UA) (Negative) mg/dL Urine Ketones (Negative) mg/dL Ur Blood (Man) (Negative) Urine Nitrate (Negative) Urine Bilirubin (Negative) Urine Urobilinogen (<2.0) mg/dL Leukocyte Esterase Rfl (Negative) JAYDEN/UL Urine RBC (0-2) /hpf Urine WBC (0-3) /hpf Ur Squamous Epith Cells (Few) /hpf Urine Bacteria /hpf Urine Casts POC Urine HCG, Qual Negative (Negative) Influenza A (RT-PCR) Influenza B (RT-PCR) RSV (RT-PCR) SARS-CoV-2 RNA (RT-PCR) Blood Type Antibody Screen Discharge Plan Discharge Clinical Impression: Colitis Patient Disposition: Still a Patient Condition: Stable Instructions: Antibiotic Form Patient Language: Palestinian Prescriptions: No Action atorvastatin 20 mg tablet 20 mg PO HS Rx Instructions: Has been off since June due PCP order. montelukast 10 mg tablet 10 mg PO HS loratadine [Claritin] 10 mg Tablet 10 mg PO DAILY venlafaxine 150 mg capsule,extended release 24hr 150 mg PO QPM Lorenza Flood U-100 Insulin 100 unit/mL insulin pen 1 sliding scale dose SUBCUT AC Rx Instructions: For blood sugar of 150 or less administer 18 units for blood sugar per 25 points greater than 150 administer 1 unit per 25 over M[place]jaro 5 mg/0.5 mL pen injector 10 mg SUBCUT WEEKLY Patient Comments: on Saturdays tramadol 50 mg Tablet 50 mg PO Q4H PRN (Reason: Severe pain) Qty: 15 0RF lidocaine 5 % adhesive patch,medicated 1 patch topical DAILY Qty: 30 0RF Rx Instructions: leave on most painful area for up to 12 hrs albuterol sulfate 2.5 mg /3 mL (0.083 %) solution for nebulization 2.5 mg inhalation DAILY PRN (Reason: Shortness Of Breath) cetirizine [All Day Allergy (cetirizine)] 10 mg Tablet 10 mg PO DAILY fluticasone propionate 50 mcg/actuation [place],Suspension 1 spray INTRANASAL DAILY PRN (Reason: allergy symptoms) ergocalciferol (vitamin D2) 50,000 unit PO .COMPLEX Patient Comments: Patient takes on Wednesdays and Sundays Rx Instructions: 50,000 units orally twice a week; prednisone 20 mg tablet 40 mg PO DAILY@0800 cyclobenzaprine 10 mg tablet 10 mg PO HS Patient Comments: patient takes in the evening lisinopril 20 mg tablet 20 mg PO DAILY methotrexate sodium 2.5 mg tablet 12.5 mg PO WEEKLY Rx Instructions: on gabapentin 300 mg capsule 300 mg PO TID diclofenac sodium 75 mg tablet,delayed release (DR/EC) 75 mg PO BID folic acid 1 mg tablet 1 mg PO DAILY hydroxychloroquine 200 mg tablet 400 mg PO HS insulin glargine [Lantus Solostar U-100 Insulin] 100 unit/mL (3 mL) insulin pen 45 unit SUBCUT BID Patient Comments: in the morning and evening pantoprazole 40 mg tablet,delayed release (DR/EC) 40 mg PO DAILY Diurex 162.5-50 mg tablet 1 tablet PO DAILY magnesium 200 mg tablet 400 mg PO DAILY potassium 99 mg tablet 99 mg PO HS famotidine [Acid Controller] 20 mg tablet 20 mg PO HS acetaminophen 500 mg Tablet 1,000 mg PO BID albuterol sulfate 90 mcg/actuation HFA aerosol inhaler 2 puff INHALATION Q8H PRN (Reason: shortness of breath or wheezing) isosorbide dinitrate 5 mg Tablet 5 mg PO TID 30 Days Qty: 90 0RF metoprolol tartrate 25 mg tablet 12.5 mg PO BID 30 Days Qty: 30 0RF cefdinir 300 mg Capsule 300 mg PO Q12HR 9 Days Qty: 18 0RF Follow-up/Referrals: UNKNOWN,DOCTOR [Primary Care Provider] - "
--- OUTSIDE RECORDS SUMMARY | 2024-12-14 20:29 | XMS_ITS | Encounter Summary ---
Author Organization [facility] Healthcare Address [address] [place] [id number] Care Team Providers Care Alining Inspector Name Role Phone Ann Serrano MD Unavailable [phone] Lynn Rodriguez MD Primary Care Provider Reason for Visit * Reason Comments Follow-up Encounter Details Date Type Department Care Team (Late st Contact Info) Description 12/13/2024 2:30 PM CDT Office Visit [facility] Pulmonary at [address] [place] [address] [address] [place] [address] Social History Tobacco Use Types Packs/Day Years [...] on file Legal Sex Female 11:54 PM XRAY TECH Gender Identity Female 09/19/2020 8:37 AM XRAY TECH Sexual Orientation Straight 09/19/2020 8: 37 AM XRAY TECH documented as of this encounter Last Filed Vital Signs Vital Sign Reading Time Taken Comments Blood Pressure 150/98 12/13/2024 2:30 PM CDT Pulse 110 12/13/2024 2:30 PM CDT Temperature 36.3 C (97.3 F) 12/13/2024 2:30 PM CDT Respiratory Rate - - Oxygen Saturation 99% 12/13/2024 2:30 PM CDT Inhaled Oxygen Concentration - - Weight 148.8 kg (328 lb 1.6 oz) 12/13/2024 2:30 PM CDT Height 167.6 cm (5' 6 ) 12/13/2024 2:30 PM CDT Body Mass Index 52.96 12/13/2024 2:30 PM CDT documented in this encounter Plan of Treatment Not on file documented as of this encounter Visit Diagnoses Not on filedocumented in this encounter Historical Medications * This list may reflect changes made after this encounter. lidocaine (LIDODERM) 5 % Apply 1 patch topically daily; leave on most painful area for up to 12 hrs 12/08/2024 added in this encounter Care Teams Alining Inspector Relationship Specialty [place] [id number] [place] [address] PCP - General Internal Medicine 04/06/24 Ann Serrano MD Referring Physician Endocrinology Diabetes & Metabolism 06/08/20 documented as of this encounter
--- OUTSIDE RECORDS SUMMARY | 2024-12-14 20:29 | XMS_ITS | Encounter Summary ---
Author Organization [facility] Health Address [address] [place] [address] Care Team Providers Care Catering Driver Name Role Phone Tiffany Cox MD Primary Care Provider Unavailable Kishor Saleh MD Primary Care Provider Encounter Details Date Type Department Care Team (Late st Contact Info) Description 07/03/2023 Lab Requisition [facility] [address] [place] [id number] [place] [address] [address] [place] [address] [place] [id number] Social History Tobacco Use Types Packs/Day Years Used Date Smoking Tobacco: Never Assessed Comments Unknown Sex and Gender Information Value Date Recorded Sex Assigned at Not on file Legal Sex Female 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 Gender Identity Not on file Sexual Orientation Not on file documented as of this encounter Plan of Treatment Not on file documented as of this encounter Visit Diagnoses Not on filedocumented in this encounter Additional Health Concerns Infection Onset Date Last Indicated Resolved Time COVID-19 Under Investigation 08/13/2024 08/13/2024 08/13/2024 11:30 PM ACQUISITION MARKETING MANAGER documented as of this encounter Care Teams Catering Driver Relationship Specialty Start Date End Date Tiffany Cox MD PCP - General Internal Medicine 05/16/13 07/30/23 Kishor Saleh MD [address] [place] [address] [address] [place] [address] [place] [id number] PCP - General Internal Medicine 07/31/23 documented as of this encounter
--- OUTSIDE RECORDS SUMMARY | 2024-12-14 20:29 | XMS_ITS | Referral Summary ---
Author Organization [facility] Medical Office Building A Address [address] [place] [address] Care Team Providers Care Wool Sacker Name Role Phone Ann Serrano MD Unavailable [phone] Lynn Rodriguez MD Primary Care Provider Encounters Date Type Department Care Team Description 12/13/2024 2:30 PM CDT Office Visit [facility] Pulmonary at [address] [place] [phone] Josiah Doan DO 11/30/2024 3:30 PM CDT Office Visit [facility] Con[facility]ient [facility] at [address] [phone] Minnie House NP Acute non-recurrent frontal sinusitis (Primary Dx) 11/09/2024 Results Follow-Up [facility] Pulmonary at [address] [phone] Josiah Doan, Chronic respiratory failure with hypoxia (HCC) (Primary Dx); Hypoxia 11/09/2024 7:18 AM CDT - 11/09/2024 11:59 PM CDT Hospital Encounter [facility] Respiratory [address] [place] [address] Severe persistent asthma without complication (HCC) Discharge Disposition: Discharge to home or self care 11/07/2024 Results Follow-Up [facility] at [address] [phone] Karley Rubi NP 11/07/2024 2:30 PM CDT Ancillary Procedure [facility] at [address] [phone] Wheezing 11/07/2024 2:00 PM CDT Office Visit [facility] at [address] [phone] Karley Rubi NP Sore throat (Primary Dx); Wheezing; History of asthma 11/01/2024 1:00 PM CDT Office Visit [facility] Pulmonary at [address] [place] [address] Josiah Doan DO Severe persistent asthma without complication (HCC) (Primary Dx); Obstructive sleep apnea; Immunosuppression due to drug therapy; Class 3 severe obesity due to excess calories with serious comorbidity and body mass index (BMI) of 45.0 to 49.9 in adult 10/25/2024 Telephone [facility] Endocrinology Metabolism and Lipid [address] [facility] Medicine 5th [place] [address] [place] [address] Leisa Arenas, RN eye exam 10/25/2024 Orders Only [facility] Endocrinology Metabolism and Lipid [address] [facility] Medicine 13th [place] [address] [place] [phone] Stephenie Cruz MD 10/12/2024 9:00 AM CDT Telemedicine [facility] Endocrinology Metabolism and Lipid [address] [facility] 13th [place] [address] [place] [address] Shirley Teixeira PA Uncontrolled type 2 diabetes mellitus with hyperglycemia (HCC) (Primary Dx); Mixed hyperlipidemia; Class 3 severe obesity due to excess calories with serious comorbidity and body mass index (BMI) of 45.0 to 49.9 in adult (HCC); penitentiary (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); penitentiary 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 user 10/07/2024 Ancillary Procedure [facility] [...] 400 each 3 024 Active blood-glucose sensor (Fipeo G7 Sensor) deviceIndication s:Uncontrolled type 2 diabetes mellitus with hyperglycemia (HCC),continuous churn buttermaker (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) Use for [...] (FLEXERIL) 10 mg tablet 3 024 Active albuterol HFA (ProAir HFA) 90 mcg/actuation inhaler Inhale 2 puffs every 4 (four) hours as needed for wheezing or shortness of breath 8.5 g 2025 Active albuterol 2.5 mg /3 mL (0.083 %) nebulizer solution USE 1 VIAL VIA NEBULIZER EVERY 6 HOURS NEEDED FOR WHEEZING (STENCILING MACHINE TENDER RECOMMENDS NOT EXCEEDING 4 VIALS/DAY) 150 mL [...] PEN SUBCUTANEOUSLY WEEKLY DIRECTED 2 mL Active Vitamin D2 1,250 mcg (50,000 unit) capsule TAKE 1 CAPSULE BY MOUTH TWICE WEEKLY 26 capsule 3 Active lidocaine (LIDODERM) 5 % Apply 1 patch topically daily; leave on most painful area for up to 12 hrs Active traMADoL (ULTRAM) 50 mg tablet Take [...] 08/13/2024 Assessment & Plan (08/26/2024 6:09 PM FINANCIAL COMPLIANCE EXAMINER): Recent hospitalization likely for CAP followed by RSV Symptoms resolved Impaired mobility 07/29/2024 continuous churn buttermaker (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 07/13/2024 continuous churn buttermaker 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 user 07/13/2024 Assessment & Plan (07/13/2024 12:22 PM FINANCIAL COMPLIANCE EXAMINER): - Further complicates diabetes management Need for vaccination 04/06/2024 Assessment & Plan (04/06/2024 4:14 PM CDT): Received pneumonia vaccine today history of pneumonia currently no complaints last bout in 08/2023 Head trauma 09/04/2022 Assessment & Plan (09/04/2022 2:35 PM FINANCIAL COMPLIANCE EXAMINER): No signs of neurological abnormality on examination [...] booster Assessment & Plan (06/24/2021 3:28 PM FINANCIAL COMPLIANCE EXAMINER): Pito vaccine 10/05/2020 and Moderna booster Jun 2021 Major depressive disorder 04/22/2021 Assessment & Plan (01/06/2024 9:09 AM CDT): Stable on current medication regimen. Assessment & Plan (01/17/2022 10:21 AM CDT): Stable on current medication regimen. Assessment & Plan (07/17/2021 2:07 PM FINANCIAL COMPLIANCE EXAMINER): Better controlled on venlafaxine. Assessment & Plan (04/22/2021 8:25 AM CDT): Restart venlafaxine and warned of side effects and call back if any develop or if no improvement. Type 2 diabetes mellitus with hyperlipidemia 06/2020 Assessment & Plan (01/06/2024 9:09 AM CDT): A1c above goal. Will start Mounjaro soon. Continue other medications as directed by her pickling tank operator. Diet exercise discussed. Hopefully may be able to wean prednisone in the near future as well. Assessment & Plan (06/15/2023 10:48 AM FINANCIAL COMPLIANCE EXAMINER): She knows that the steroids will exacerbate her hyperglycemia and should be in contact with her pickling tank operator for management. Assessment & Plan (06/08/2023 5:26 PM FINANCIAL COMPLIANCE EXAMINER): Poor control of her diabetes prior to this hospitalization and even worse now on prednisone. Follow-up with her pickling tank operator for management. Diet exercise weight loss recommended. Assessment & Plan (01/21/2023 9:50 AM CDT): Blood sugars remain above goal. Hopefully the recent addition of mounjaro will help significantly. Discuss up titration of this and her mealtime insulin with her pickling tank operator. Diet exercise discussed. Check A1c and fasting blood sugar before next visit. Assessment & Plan (08/02/2022 12:16 PM FINANCIAL COMPLIANCE EXAMINER): A1c poorly controlled. Importance of diet exercise weight loss discussed at length. Continue her Ozempic and insulin and needs to contact her pickling tank operator soon as possible for guidance on further therapy. Assessment & Plan (01/17/2022 10:22 AM CDT): Patient aware A1c grossly uncontrolled. Must work on diet exercise and weight loss. She has to get back on her insulin and should discuss this today with her pickling tank operator. Risks posed her health with poor glycemic control discussed. Assessment & Plan (07/13/2020 8:34 AM FINANCIAL COMPLIANCE EXAMINER): A1c above goal. Importance of diet exercise weight loss discussed. Continue current medication regimen and follow-up with her pickling tank operator as they direct. 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 Unfortunately lab work and skin biopsy inconclusive. Discussed possible rheumatology 2nd opinion here at [facility] and patient will call back if desired. Assessment & Plan (06/15/2023 10:48 AM FINANCIAL COMPLIANCE EXAMINER): Certainly making a case for underlying vasculitis [...] condition. Assessment & Plan (06/20/2020 9:35 AM FINANCIAL COMPLIANCE EXAMINER): Unclear etiology but I am thinking of [...] tolerated Assessment & Plan (08/26/2024 6:10 PM FINANCIAL COMPLIANCE EXAMINER): Body mass index is 49.1 kg/m . BMI Follow-up includes: nutrition counseling, exercise counseling, and education provided. Assessment & Plan (07/13/2024 12:20 PM FINANCIAL COMPLIANCE EXAMINER): - Increase Mounjaro to 10 mg weekly [...] tolerated. Assessment & Plan (06/08/2023 5:23 PM FINANCIAL COMPLIANCE EXAMINER): Patient is encouraged to lose weight with a combination of caloric reduction and increased exercise. Various strategies discussed. The long-term risks associated with continued morbid obesity discussed. Assessment & Plan (09/04/2022 2:34 PM FINANCIAL COMPLIANCE EXAMINER): Patient is encouraged to lose weight with a combination of caloric reduction and increased exercise. Various strategies discussed. The long-term risks associated with continued morbid obesity discussed. Assessment & Plan (08/02/2022 12:16 PM FINANCIAL COMPLIANCE EXAMINER): Patient is encouraged to lose weight with [...] discussed. Assessment & Plan (07/13/2020 8:34 AM FINANCIAL COMPLIANCE EXAMINER): Patient is encouraged to lose weight with a combination of caloric reduction and increased exercise. Various strategies discussed. The long-term risks associated with continued morbid obesity discussed. Assessment & Plan (06/20/2020 9:35 AM FINANCIAL COMPLIANCE EXAMINER): Patient is encouraged to lose weight with a combination of caloric reduction and increased exercise. Various strategies discussed. The long-term risks associated with continued morbid obesity discussed. Assessment & Plan (07/08/2019 8:44 AM FINANCIAL COMPLIANCE EXAMINER): Patient is encouraged to lose weight with a combination of caloric reduction and increased exercise. Various strategies discussed. The long-term risks associated with continued morbid obesity discussed. Irregular menses 06/03/2019 Allergic rhinitis 07/05/2018 Assessment & Plan (02/23/2023 1:30 PM CDT): Nasal saline spray (Simply saline, Little Remedies, [place], [place]) 2 second sprays or 2 squeezes into [...] daily Assessment & Plan (07/17/2021 2:07 PM FINANCIAL COMPLIANCE EXAMINER): Claritin montelukast. Assessment & Plan (04/22/2021 8:25 AM CDT): Currently using Claritin and montelukast. She has not been trying Flonase as her nose is being to congested. Recommended sinus rinses her using a hot warm shower. Could also try Afrin for few days. Assessment & Plan (07/08/2019 8:43 AM FINANCIAL COMPLIANCE EXAMINER): Add montelukast to her Claritin. She struggles with nasal sprays due to chronic congestion. Assessment & Plan (07/05/2018 9:24 AM FINANCIAL COMPLIANCE EXAMINER): Try Afrin for 3 days along with [...] mg/dL Assessment & Plan (07/13/2024 12:21 PM FINANCIAL COMPLIANCE EXAMINER): - Last LDL 103, TG 308, TC [...] triglycerides. Assessment & Plan (09/12/2023 8:12 PM FINANCIAL COMPLIANCE EXAMINER): Continue statin and optimize glycemic control Assessment & Plan (02/16/2023 8:14 PM CDT): Continue statin and optimize glycemic control Assessment & Plan (01/21/2023 9:50 AM CDT): Continue her atorvastatin and work on diet exercise and check lipids and LFTs before next visit. Assessment & Plan (08/02/2022 12:15 PM FINANCIAL COMPLIANCE EXAMINER): Well controlled on current therapy and will check a lipid panel and LFTs in 6 months. Assessment & Plan (01/17/2022 10:21 AM CDT): Well controlled on current therapy and will check a lipid panel and LFTs in 6 months. Assessment & Plan (07/17/2021 2:06 PM FINANCIAL COMPLIANCE EXAMINER): Well controlled on current therapy and will check a lipid panel and LFTs in 6 months. Assessment & Plan (06/24/2021 3:28 PM FINANCIAL COMPLIANCE EXAMINER): Continue statin and optimize glycemic control Assessment & Plan (12/19/2020 7:53 AM CDT): Continue statin and optimize glycemic control Assessment & Plan (07/13/2020 8:34 AM FINANCIAL COMPLIANCE EXAMINER): Well controlled on current therapy and will check a lipid panel and LFTs in 6 months. Assessment & Plan (06/08/2020 8:31 AM FINANCIAL COMPLIANCE EXAMINER): LDL within goal. Continue statin and optimize glycemic control Assessment & Plan (07/08/2019 8:42 AM FINANCIAL COMPLIANCE EXAMINER): Well controlled on current therapy and will check a lipid panel and LFTs in 12 months. Assessment & Plan (09/01/2018 2:22 PM FINANCIAL COMPLIANCE EXAMINER): Continue statin, optimize glycemic control Assessment & Plan (07/05/2018 9:23 AM FINANCIAL COMPLIANCE EXAMINER): Well controlled on current therapy and will check a lipid panel and LFTs in 6 months. Assessment & Plan (08/26/2017 4:27 PM FINANCIAL COMPLIANCE EXAMINER): Start atorvastatin and check lipids and LFTs in 3-4 months. Call back for results. Vitamin D deficiency 07/02/2017 Assessment & Plan (07/13/2024 12:22 PM FINANCIAL COMPLIANCE EXAMINER): - Last Vitamin D 42 (12/2023), replete [...] week Assessment & Plan (09/12/2023 8:12 PM FINANCIAL COMPLIANCE EXAMINER): Continue long-term supplement Assessment & Plan (02/16/2023 8:14 PM CDT): Continue long-term supplement Assessment & Plan (08/02/2022 12:15 PM FINANCIAL COMPLIANCE EXAMINER): Continue current supplementation and check level in 1 year. Assessment & Plan (07/17/2021 2:06 PM FINANCIAL COMPLIANCE EXAMINER): Continue current supplementation and check level in 1 year. Assessment & Plan (06/24/2021 3:29 PM FINANCIAL COMPLIANCE EXAMINER): Continue long-term supplement Assessment & Plan (12/19/2020 7:53 AM CDT): Continue long-term supplement Assessment & Plan (07/13/2020 8:33 AM FINANCIAL COMPLIANCE EXAMINER): Continue current supplementation and check level in 1 year. Assessment & Plan (06/08/2020 8:31 AM FINANCIAL COMPLIANCE EXAMINER): Vitamin-D level within goal, continue chronic supplement Assessment & Plan (07/08/2019 8:42 AM FINANCIAL COMPLIANCE EXAMINER): Continue current supplementation and check level in 1 year. Assessment & Plan (06/03/2019 8:24 AM CDT): Recently ran out of supplement, so we will restart and check her level today. Also check B12 Assessment & Plan (09/01/2018 2:22 PM FINANCIAL COMPLIANCE EXAMINER): Continue supplement Assessment & Plan (07/05/2018 9:23 AM FINANCIAL COMPLIANCE EXAMINER): Continue current supplementation and check level in 1 year. Assessment & Plan (08/26/2017 4:26 PM FINANCIAL COMPLIANCE EXAMINER): Continue current supplementation and check level in [...] Component Value Date HGBA1C 11.7 07/13/2024 Per [employer], goal A1c is less 7% without significant hypoglycemia. - Management Goal: A1c <7.0% - Increase Mounjaro to 12.5 mg once a week - Continue Lantus 45 units twice daily - Lyumjev 16 units with breakfast and lunch, 18 units with dinner 1:25 > 150 mg/dL - She is going to re-start [employer] G7 CGM. Given instructions on how to [...] etc. Assessment & Plan (08/26/2024 6:10 PM FINANCIAL COMPLIANCE EXAMINER): Assessment & Plan (07/13/2024 12:20 PM FINANCIAL COMPLIANCE EXAMINER): - Diabetes is complicated by hyperlipidemia, hypertension, morbid obesity and chronic steroid use. Uncontrolled. Lab Results Component Value Date HGBA1C 11.7 07/13/2024 Per [employer], goal A1c is less 7% [...] in prescriptions for both Dexcom G7 and [employer]Style Silva 3 CGM for olivares checking. Also [...] Return visit 3 months to see the ENGLISH FACULTY MEMBER/PA, 6 months to see me. Assessment & [...] Component Value Date HGBA1C 12.5 11/17/2023 Per [employer], goal A1c is less 7% [...] that I am available via phone or [employer] if they have any concerns for hypo/hyperglycemia, medication refills, etc. Assessment & Plan (11/18/2023 8:23 AM CDT): - Diabetes is complicated by HTN, HLD, steroid use, hyperglycemia and obesity. Uncontrolled. Lab Results Component Value Date HGBA1C 12.5 11/17/2023 Per [employer], goal A1c is less 7% without significant hypoglycemia. - Management Goal: re-start and adherence to medication regimen - Continue current medication regimen at this time. - Patient called local pharmacy to confirm that they do have prescriptions for her Semglee. She is going to pick up driver today after this visit. - Insurance does [...] etc. Assessment & Plan (09/12/2023 8:13 PM FINANCIAL COMPLIANCE EXAMINER): Very high glucoses; multifactorial including steroid therapy, [...] daily. Assessment & Plan (06/24/2021 3:29 PM FINANCIAL COMPLIANCE EXAMINER): Much improved but needs a little more basal insulin. Assessment & Plan (12/19/2020 7:53 AM CDT): Multiple medications, but now requires insulin. We can gradually adjust her Lantus based on her clinical response. Assessment & Plan (06/08/2020 8:32 AM FINANCIAL COMPLIANCE EXAMINER): Glucoses somewhat better now that she is [...] motivator. Assessment & Plan (07/08/2019 8:43 AM FINANCIAL COMPLIANCE EXAMINER): Continue increased dose of Ozempic and also continue Invokana. Importance of dietary changes increase exercise weight loss discussed. Follow-up with her pickling tank operator as they direct. Assessment & Plan (06/03/2019 8:25 AM CDT): Somewhat suboptimal, would benefit from increasing Ozempic and continuing efforts with diet and lifestyle. Needs follow-up labs Assessment & Plan (09/01/2018 2:22 PM FINANCIAL COMPLIANCE EXAMINER): Glucoses a little high, but she has bruising with Victoza so she may benefit by changing to weekly Ozempic, which is a little stronger, as well. Jardiance is been ineffective, so we may need to provide preauthorization for Invokana Assessment & Plan (07/05/2018 9:23 AM FINANCIAL COMPLIANCE EXAMINER): A1c above goal. We stressed importance of increased exercise, reduce calories, weight loss. Could consider switching Victoza to ozempic. Otherwise does not tolerate metformin or sulfonylureas. May need insulin soon. She is directed to follow up with her pickling tank operator more quickly than her next scheduled appointment in November. Assessment & Plan (08/26/2017 4:26 PM FINANCIAL COMPLIANCE EXAMINER): Continue current medication regimen and follow up with her pickling tank operator as they direct. Low carb diet weight loss recommended. Check blood sugars once daily. Start atorvastatin and check lipids and LFTs in 3-4 months. Anxiety state 12/17/2013 Overview (11/07/2016): ANXIETY STATE NOS Benign hypertension 12/17/2013 Overview (11/07/2016):Formatting of this note might be different [id number]||2024-12-14 22:29:00|CT_ITS|[facility]|Imaging|[id number]|"CT abdomen pelvis w con Ordering provider: Ton Chandler MD History: 49 years Female with . Diffuse abdominal pain, n/v/d bloody diarrhea . Comparison: None. Technique: CT abdomen and pelvis with IV and without oral contrast. Automated exposure control and it erative reconstruction technique were employed. The dose-length product was 1968.52 mGy-cm. 100 mL Omnipaque 350 was given IV. Findings: VISUALIZED LOWER CHEST: Subsegmental atelectasis in the right lung base. Dependent atelectatic change s. Otherwise, Normal. UPPER ABDOMINAL ORGANS: Liver: Focal areas of fat infiltration are seen in both lobes in the area of the interlobar fissure. Gallbladder: Normal. Spleen: Normal. Stomach/duodenum: Normal. Pancreas: Normal. Adrenals: Normal. Kidneys: Scarring is seen in the left kidney upper pole with adjacent soft tissue density most likely a cyst measuring 1.6 cm. Follow-up ultrasound is advised. PELVIC ORGANS: The bladder is normal. BOWEL AND MESENTERY: Colon: Thickening of the midportion of the transverse colon with surrounding fat stranding suggestive of colitis. No significant enhancement seen. Diverticulitis is less likely. Normal appendix. Small Bowel: Normal. No obstruction. Peritoneum/mesentery: No free air or free fluid. No mesenteric lymphadenopathy. RETROPERITONEUM: Normal aorta. No retroperitoneal lymphadenopathy. MUSCULOSKELETAL: Superficial soft tissues: Soft tissue density seen posterior to the umbilicus which may be fluid clin ical evaluation advised. Otherwise,The superficial soft tissues are normal. Bones: Age appropriate degenerative changes of the spine. Bilateral sacroiliitis. IMPRESSION: 1. Colitis involving the midportion of the transverse colon. Clinical correlation and follow-up advi sed. Ischemia is less likely. 2. Hypodensity in the left kidney with the study most likely a cyst ultrasound evaluation advised. Reviewed, dictated and finalized at location A. IMPRESSION: 1. Colitis involving the midportion of the transverse colon. Clinical correlat ion and follow-up advised. Ischemia is less likely. 2. Hypodensity in the left kidney with the study most likely a cyst ultrasound evaluation advised. "
--- OUTSIDE RECORDS SUMMARY | 2024-12-14 20:29 | XMS_ITS | Encounter Summary ---
Author Organization [facility] Address [address] [place] [address] Care Team Providers Care Inventory Accountant Name Role Phone Tiffany Cox MD Primary Care Provider Unavailable Kishor Saleh MD Primary Care Provider Encounter Details Date Type Department Care Team (Late st Contact Info) Description 07/03/2023 Lab Requisition [facility] - DermPath Lab [address] [place] [address] [place] [address] [address] Social History Tobacco Use Types Packs/Day Years Used Date Smoking Tobacco: Never Assessed Comments Unknown Sex and Gender Information Value Date Recorded Sex Assigned at Not on file Legal Sex Female 4:50 AM TRANSIT PROOF MACHINE OPERATOR Gender Identity Not on file Sexual Orientation Not on file documented as of this encounter Plan of Treatment Not on file documented as of this encounter Procedures Procedure Name Priority Date/Time Associated Diagnosis Comments DERMATOPATHOLOGY Routine 07/01/2023 3:33 AM TRANSIT PROOF MACHINE OPERATOR documented in this encounter Results * DERMATOPATHOLOGY (07/01/2023 3:33 AM TRANSIT PROOF MACHINE OPERATOR) Case Report Dermatopathology Report Case: [id number] Authorizing Provider: Kendrick Christopher MD Collected: 07/01/2023 03:33 AM Ordering Location: [facility] DermPath Lab Received: 07/03/2023 12:12 PM Pathologist: Bella Schwab MD Specimen: Skin, right inferior knee 3:45 PM [facility]OLOG[facility] Final Diagnosis Specimen A. SKIN, right inferior knee: STASIS DERMATITIS (L30.8) DERMAL FIBROSIS (L90.5) (see microscopic description) 3:45 PM [facility] DERMATOPATHOLOGY [facility]ORAT[facility] Clinical History Rash; R/O Leukocytoclastic Vasculitis, Livedo Reticularis 3:45 PM [facility] Gross Description Specimen A: Received is one formalin filled container labeled with the patient's name and designated right inferior knee. The specimen consists of a punch biopsy measuring 6x5x6 mm. Jar 0. 3:45 PM [facility]ATH[facility] Microscopic Description Specimen A. SKIN, [...] were obtained and reviewed. 3:45 PM [facility]MAT[facility]ATH[facility] Disclaimer An external and internal positive and negative controls are appropriate for the histochemical, immunohistochemical and immunofluorescence stain(s) in this case (if any), except where stated explicitly. The performance characteristics of the stain(s) cited in this report were developed and its performance characteristic determined by the Dermatopathology Laboratory at [facility], directed by Dr. Arnol Perea. These tests need not be, and therefore are not, approved by the [place] Food and Drug Administration. The tests are used for clinical purposes. Billing Codes Specimen Charges Stain Charges 21160 1 93907 1 3 3:45 PM [facility] Embedded Images 3 3:45 PM [facility] Pathology/Cytolo gy TISSUE SPECIMEN FROM SKIN / Unknown 07/01/2023 3:33 AM TRANSIT PROOF MACHINE OPERATOR 07/03/2023 12:12 PM TRANSIT PROOF MACHINE OPERATOR us Kendrick Christopher MD LAB - PATHOLOGY/CYTOLOGY O RDERABLES Final Result DERMATOPATHOLOGY LABORATORY [facility] - Department of Dermatology [facility] Medicine [address] [place] [address], [address] [phone] documented in this encounter Visit Diagnoses Not on filedocumented in this encounter Additional Health Concerns Infection Onset Date Last Indicated Resolved Time COVID-19 Under Investigation 08/13/2024 08/13/2024 08/13/2024 11:30 PM TRANSIT PROOF MACHINE OPERATOR documented as of this encounter Care Teams Inventory Accountant Relationship Specialty Start Date End Date Tiffany Cox MD PCP - General Internal Medicine 05/16/13 07/30/23 Kishor Saleh MD [address] [place] [address] DR [address] [place] [address] PCP - General Internal Medicine 07/31/23 documented as of this encounter
--- OUTSIDE RECORDS SUMMARY | 2024-12-14 20:29 | XMS_ITS | Continuity of Care Document ---
Author Organization [employer] [facility] Address [address] [facility] [address] [place] [address] Phone Care Team Providers Care Gre Tutor Name Role Phone Alex Ingram MD Unavailable [...] Diagnoses Date Provider Providers Copied on Encounter [facility], [address], [place], [place], [id number], [place] [phone] [place] Professional Complete Exam (chief complaint) Diabetes mellitus without complication 3 Juan Jose Johnson. [address] [facility], [facility] [address], [place], [place], [id number], [place]. tel:[phone] Specialist: Ann Serrano MD, [address] [place], [address]. tel:[phone] alist: Ann Serrano MD, [facility] [place], [address]. tel:[phone] ring Provider: Kishor Saleh MD, [address] [facility] [address], [place], [address]. tel:[phone] [facility], [address], [place], [place], [id number], [place] tel:[phone] [place] Professional diabetic eye exam (chief complaint) Diabetes mellitus without complicationE pidemic keratoconjunc tivitis of both eyes 2 Juan Jose Johnson. [address] [facility], [address], [place], [place], [address], [place]. tel:[phone] Specialist: Ann Serrano MD, [address] [place], [address]. tel:[phone] ring Provider: Kishor Saleh MD, [address] [facility] [address], [place], [address]. tel:[phone] Office/outpa tient Visit, [facility], [address], [place], [place], [address], [place] tel:[phone] SEC [place]re [place] Professional 2 week EKC f/u (chief complaint) Epidemic keratoconjunc tivitis of both eyes 1 Juan Jose Johnson. [address] [employer], [facility] [address], [place], [place], [id number], [place]. tel:[phone] Specialist: Ann Serrano MD, [address] [place], [address]. tel:[phone] ring Provider: Kishor Saleh MD, [address] [facility] [address], [place], [address]. tel:[phone] Office/outpa tient Visit, [facility], [address] [place] [address] [address], [place], [place], [address], tel:[phone] SEC [place]re [place] Professional Complete Exam (chief complaint) Epidemic keratoconjunc tivitis of both eyesCorneal opacity of both eyes 1 Juan Jose Johnson. [address] [employer], [facility] [address], [place], [place], [id number], [place]. tel:[phone] Specialist: Ann Serrano MD, [address] [place], [address]. tel:[phone] ring Provider: Kishor Saleh MD, [address] [facility] [address], [place], [address]. tel:[phone] Family History Family Member Type Diagnosis Age At Onset Problem Family history of Diabetes m anna Payers Payer name Insurance type Covered libertarian ID Boby altman(s) R CI [id number] Social History Type Description Quantity Date Captured [...]
--- OUTSIDE RECORDS SUMMARY | 2024-12-14 20:29 | XMS_ITS | Clinical Summary ---
Author Organization [facility] Address [address] [place] [address] Care Team Providers Care Driver Courier Name Role Phone Kishor Saleh MD Primary Care Provider Source Comments [facility],non-owned Affiliates and Associated Physician Practices is amultiple site organization consisting of ambulatory clinics and hospital sitesin [place], [place], [place] and [place]. This disclosure is being madepursuant to the Care Everywhere program and may not contain all information available regarding this patient. Last updated 18.[facility] Allergies Active Allergy Reactions Criticality Noted Date [...] fluticasone propionate (Flonase) 50 MCG/ACT nasal spray Lyle 2 (two) sprays into each nostril once [...] vitamin D, ergocalciferol , (Drisdol) 1.25 MG (84376 UT) capsule Take 1 (one) capsule by [...] No 08/15/2024 Housing Stability Vital Sign Answer Lna e Recorded In the last 12 months, was t here a time when you were not able to pay the mortgage or rent on time? No 08/15/2024 Number of Times Moved in the Last Year Not on fi le 08/15/2024 At any time in the past 12 m [facility], were you homeless or living in a fpc (including now)? No 08/15/2024 Comments Unknown Sex and Gender Information Value Date Recorded Sex Assigned at Not on file Legal Sex Female 4:50 AM NON EMERGENCY SERVICES AMBULANCE DRIVER Gender Identity Not on file Sexual Orientation Not on file Last Filed Vital Signs Vital Sign Reading Time Taken Comments Blood Pressure 154/92 08/18/2024 12:25 PM NON EMERGENCY SERVICES AMBULANCE DRIVER Pulse 102 08/18/2024 12:25 PM NON EMERGENCY SERVICES AMBULANCE DRIVER Temperature 36.7 C (98.1 F) 08/18/2024 12:25 PM NON EMERGENCY SERVICES AMBULANCE DRIVER Respiratory Rate 23 08/18/2024 12:2 5 PM NON EMERGENCY SERVICES AMBULANCE DRIVER Oxygen Saturation 90% 08/18/2024 12: 25 PM NON EMERGENCY SERVICES AMBULANCE DRIVER Inhaled Oxygen Concentration 21% 08/18/2024 2 :00 PM NON EMERGENCY SERVICES AMBULANCE DRIVER Weight 132.6 kg (292 lb 4.8 oz) 08/18/2024 4:00 AM NON EMERGENCY SERVICES AMBULANCE DRIVER Height 167.6 cm (5' 6 ) 08/13/2024 5:14 PM NON EMERGENCY SERVICES AMBULANCE DRIVER Body Mass Index 47.18 08/13/2024 5:14 PM NON EMERGENCY SERVICES AMBULANCE DRIVER Plan of Treatment Health Maintenance Due Date [...] (CALCIUM TOTAL) AM Draw 08/17/2024 4:16 AM NON EMERGENCY SERVICES AMBULANCE DRIVER HEMOGLOBIN A1C Routine 08/14/2024 3:27 AM NON EMERGENCY SERVICES AMBULANCE DRIVER from Last 3 Months or Most Recently Relevant to Health Maintenance Results * (ABNORMAL) BASIC METABOLIC PANEL (CALCIUM TOTAL) (08/17/2024 4:16 AM NON EMERGENCY SERVICES AMBULANCE DRIVER) Glucose 139(H) 70 - 99 mg/dL 08/17/2024 4:53 AM NON EMERGENCY SERVICES AMBULANCE DRIVER [facility] Sodium 140 136 - 145 mmol/L 08/17/2024 4:53 AM NON EMERGENCY SERVICES AMBULANCE DRIVER [facility] Potassium 3.5 3.5 - 5.1 mmol/L 08/17/2024 4:53 AM NON EMERGENCY SERVICES AMBULANCE DRIVER [facility] Chloride 108(H) 98 - 107 mmol/L 08/17/2024 4:53 AM NON EMERGENCY SERVICES AMBULANCE DRIVER [facility] CO2 24 22 - 29 mmol/L 08/17/2024 4:53 AM NON EMERGENCY SERVICES AMBULANCE DRIVER [facility] Calcium 8.9 8.4 - 10.4 mg/dL 08/17/2024 4:[address] [facility] Anion Gap 8 6 - 16 mmol/L 08/17/2024 4:[address] [facility] BUN 15 5.3 - 18.7 mg/dL 08/17/2024 4:[address] [facility] Creatinine 0.65 0.57 - 1.11 mg/dL 08/17/2024 4:[address] [facility] eGFR by CKD-EPI >90 >=90 mL/min/1.7 3 m2 08/17/2024 4:[address] [facility] Blood BLOOD SPECIMEN / Unknown Venipuncture / Unknown 08/17/2024 4:16 AM NON EMERGENCY SERVICES AMBULANCE DRIVER 08/17/2024 4:30 AM [facility] Alexus Ramirez MD LAB - CHEMISTRY ORDERABLES Final Result [facility] [address] [place] [address] * (ABNORMAL) HEMOGLOBIN A1C (08/14/2024 3:27 AM [facility]) Hemoglobin A1c 10.1(H) <5.7 % 08/14/2024 3:[address] [facility] Estimated Average Glucose 243 mg/dL 08/14/2024 3:[address] [facility] Blood BLOOD SPECIMEN / Unknown Venipuncture / Unknown 08/14/2024 3:27 AM NON EMERGENCY SERVICES AMBULANCE DRIVER 08/14/2024 3:37 AM [facility] Narrative [facility] - 08/14/2024 3:48 AM [facility] HbA1c Interpretation: Normal: < 5.7% Pre-diabetes: 5.7-6.4% [...] MD LAB - CHEMISTRY ORDERABLES Final Result [facility] [address] [place] [address] from Last 3 Months or Most Recently Relevant to Health Maintenance [facility] [employer] Advance Directives * Full Code (Latest Code Status on File) Date Activated Date Inactivated Comments 08/13/2024 3:54 PM 08/18/2024 6:24 PM Care Teams Driver Courier Relationship Specialty Start Date End Date Kishor Saleh MD [address] [facility] [address] [place] [address] PCP - General Internal Medicine 07/31/23
--- OUTSIDE RECORDS SUMMARY | 2024-12-14 20:29 | XMS_ITS | Encounter Summary ---
Author Organization [facility] Address [address] [place] [address] Care Team Providers Care Signal Technician Name Role Phone Tiffany Cox MD Primary Care Provider Unavailable Kishor Saleh MD Primary Care Provider Encounter Details Date Type Department Care Team (Late st Contact Info) Description 07/03/2023 Lab Requisition [facility] [address] [place] [phone] [place] [address] [facility] [address] [place] [address] Social History Tobacco Use Types Packs/Day Years Used Date Smoking Tobacco: Never Assessed Comments Unknown Sex and Gender Information Value Date Recorded Sex Assigned at Not on file Legal Sex Female 4:50 AM PHARMACY ANALYST Gender Identity Not on file Sexual Orientation Not on file documented as of this encounter Plan of Treatment Not on file documented as of this encounter Visit Diagnoses Not on filedocumented in this encounter Additional Health Concerns Infection Onset Date Last Indicated Resolved Time COVID-19 Under Investigation 08/13/2024 08/13/2024 08/13/2024 11:30 PM PHARMACY ANALYST documented as of this encounter Care Teams Signal Technician Relationship Specialty Start Date End Date Tiffany Cox MD PCP - General Internal Medicine 05/16/13 07/30/23 Kishor Saleh MD [address] [place] [address] DR [address] [place] [address] PCP - General Internal Medicine 07/31/23 documented as of this encounter
--- OUTSIDE RECORDS SUMMARY | 2024-12-14 20:29 | XMS_ITS | Encounter Summary ---
Author Organization [facility] Address [address] [place] [address] Care Team Providers Care Solution Developer Name Role Phone Tiffany Cox MD Primary Care Provider Unavailable Kishor Saleh MD Primary Care Provider Encounter Details Date Type Department Care Team (Late st Contact Info) Description 07/03/2023 Lab Requisition [facility]erm[facility] Lab [address] [place] [phone] [place] [address] [facility] [address] [place] [address] Social History Tobacco Use Types Packs/Day Years Used Date Smoking Tobacco: Never Assessed Comments Unknown Sex and Gender Information Value Date Recorded Sex Assigned at Not on file Legal Sex Female 4:50 AM PHOTO LAB TECHNICIAN Gender Identity Not on file Sexual Orientation Not on file documented as of this encounter Plan of Treatment Not on file documented as of this encounter Visit Diagnoses Not on filedocumented in this encounter Additional Health Concerns Infection Onset Date Last Indicated Resolved Time COVID-19 Under Investigation 08/13/2024 08/13/2024 08/13/2024 11:30 PM PHOTO LAB TECHNICIAN documented as of this encounter Care Teams Solution Developer Relationship Specialty Start Date End Date Tiffany Cox MD PCP - General Internal Medicine 05/16/13 07/30/23 Kishor Saleh MD [address] [place] [address] [address] [place] [address] PCP - General Internal Medicine 07/31/23 documented as of this encounter
--- OUTSIDE RECORDS SUMMARY | 2024-12-14 20:29 | XMS_ITS | Encounter Summary ---
Author Organization [facility] Address [address] [place] [address] Care Team Providers Care Fur Stretcher Name Role Phone Tiffany Cox MD Primary Care Provider Unavailable Kishor Saleh MD Primary Care Provider Encounter Details Date Type Department Care Team (Late st Contact Info) Description 07/03/2023 Lab Requisition [facility] - DermPath Lab [address] [place] [address] [place] [address] [address] Social History Tobacco Use Types Packs/Day Years Used Date Smoking Tobacco: Never Assessed Comments Unknown Sex and Gender Information Value Date Recorded Sex Assigned at Not on file Legal Sex Female 4:50 AM BINDER STRIPPER HAND Gender Identity Not on file Sexual Orientation Not on file documented as of this encounter Plan of Treatment Not on file documented as of this encounter Procedures Procedure Name Priority Date/Time Associated Diagnosis Comments IMMUNOFLUORESCENT STUDY DERM Routine 07/01/2023 3:33 AM BINDER STRIPPER HAND documented in this encounter Results * IMMUNOFLUORESCENT STUDY DERM (07/01/2023 3:33 AM BINDER STRIPPER HAND) Case Report Dermatopathol ogy Report Case: [id number] Authorizing Provider: Kendrick Christopher MD Collected: 07/01/2023 03:33 AM Ordering Location: [facility] DermPath Lab Received: 07/03/2023 12:13 PM Pathologist: Bella Schwab MD Specimen: Skin, right superior han 3:46 PM [facility] DERMATOPATHOLOGY LABORATORY Final Diagnosis Specimen A. SKIN, right superior han: COLLOID BODIES (L98.9) (see microscopic description) (see fixed tissue results) 3:46 PM BINDER STRIP[employer] HAND DERMATOPATHOLOGY LABORATORY Direct Immunofluorescence Report - Specimen A Specimen A IgA IgM IgG C3 CollV Fibrinogen Epidermis Negative Negative Negative Negative Negative Negative Basement Membrane Negative Negative Negative Negative 2+ Negative Vessels Negative Negative Negative Negative 2+ Negative Interstitium Colloid Colloid Colloid Negative Negative Non specific 3 3:46 PM [facility] DERMATOPATHOLOGY LABORATORY Clinical History Rash; R/O Leukocytoclas tic Vasculitis, Livedo Reticularis 3:46 PM [facility] DERMATOPATHOLOGY LABORATORY Gross Description Specimen A: Received [...] rubbing. See fixed tissue results. 3:46 PM BINDER STRIP[facility] HAND DERMATOPATHOLOGY LABORATORY Disclaimer An external and internal positive and negative controls are appropriate for the histochemical , immunohistoch emical and immunofluores cence stain(s) in this case (if any), except where stated explicitly. The performance characteristi cs of the stain(s) cited in this report were developed and its performance characteristi c determined by the Dermatopathol ogy Laboratory at [facility], directed by Dr. Arnol Perea. These tests need not be, and therefore are not, approved by the [place] Food and Drug Administratio n. The tests are used for clinical purposes. Billing Codes Specimen Charges Stain Charges 48705 [id number] [id number] 1 1 1 1 1 1 3 3:46 PM BINDER STRIP[employer] [facility] DERMATOPATHOLOGY LABORATORY Embedded Images 3 3:46 PM [facility] DERMATOPATHOLOGY LABORATORY Pathology/Cytolo gy TISSUE SPECIMEN FROM SKIN / Unknown 07/01/2023 3:33 AM BINDER STRIPPER HAND 07/03/2023 12:13 PM BINDER STRIPPER HAND Kendrick Christopher MD LAB - PATHOLOGY/CYTOLOGY O RDERABLES Final Result DERMATOPATHOLOGY LABORATORY [facility] - Department of Dermatology [address], [address] [phone] documented in this encounter Visit Diagnoses Not on filedocumented in this encounter Additional Health Concerns Infection Onset Date Last Indicated Resolved Time COVID-19 Under Investigation 08/13/2024 08/13/2024 08/13/2024 11:30 PM BINDER STRIPPER HAND documented as of this encounter Care Teams Fur Stretcher Relationship Specialty Start Date End Date Tiffany Cox MD PCP - General Internal Medicine 05/16/13 07/30/23 Kishor Saleh MD [address] [place] [address] DR [address] [place] [address] PCP - General Internal Medicine 07/31/23 documented as of this encounter
[2024-12-14 20:35] VITALS: PULSE 114; RESP 18; TEMP 37.1; O2SAT 100
[2024-12-14 20:48] VITALS: BP 153/82; PULSE 107; RESP 20; O2SAT 100
--- OUTSIDE RECORDS SUMMARY | 2024-12-14 20:55 | XMS_ITS | Clinical Summary ---
Author Organization [facility] Address [address] [place] [address] Phone Care Team Providers Care Cabin Agent Name Role Phone Masoud Hayes MD Primary Care Provider [phone] Allergies Active Allergy Reactions Criticality Noted Date [...] mouth daily. 30 Tablet 08/13/2022 2:47 PM VIBRATORY PILE DRIVER 3 Active amLODIPine (NORVASC) 2.5 mg tablet Take 1 Tablet (2.5 mg) by mouth daily in the morning. 90 Tablet 05/29/2023 5:55 PM CDT 3 Active cyclobenzaprin e (FLEXERIL) 5 mg Tablet TAKE 1-2 TABLETS BY MOUTH NIGHTLY TO REDUCE MUSCLE CRAMPS 60 Tablet 3 07/10/2023 3:38 PM VIBRATORY PILE DRIVER 3 Active hydroxychloroq uine (PLAQUENIL) 200 mg tablet TAKE 2 TABLETS BY MOUTH ONCE DAILY 60 Tablet 3 07/10/2023 3:38 PM VIBRATORY PILE DRIVER 3 Active mycophenolate mofetil (CELLCEPT) 500 mg tablet TAKE 3 TABLETS BY MOUTH TWICE DAILY 180 Tablet 4 07/10/2023 3:38 PM VIBRATORY PILE DRIVER 3 Active insulin glargine (LANTUS) 100 unit/mL [...] for pain 30 Tablet 07/13/2024 12:19 PM VIBRATORY PILE DRIVER 4 Active methylPREDNISo lone (Medrol, Marvel,) 4 [...] 3 Active fluticasone propionate (FLONASE) 50 mcg/spray [place], Suspension nasal inhaler Administer 2 Sprays in each nostril 1 time daily as needed. 3 Active folic acid (FOLVITE) 1 mg tablet 4 Active gabapentin (NEURONTIN) 300 mg capsule 4 Active glucagon (BAQSIMI) 3 mg/spray [place], Non-Aerosol Administer 1 [place] in each nostril. 4 Active insulin glargine-yfgn [...] daily. 120 Tablet 3 09/11/2024 3:51 PM VIBRATORY PILE DRIVER 4 Active venlafaxine (EFFEXOR XR) 150 mg Extended Release 24 hour capsule Take 1 capsule (150 mg total) by mouth daily 30 Capsule 07/13/2024 12:19 PM VIBRATORY PILE DRIVER 4 Active tirzepatide (Mounjaro) 10 mg/0.5 mL Pen Injector Inject 10 mg under the skin every 7 days 2 mL 3 09/29/2024 4:41 PM VIBRATORY PILE DRIVER 4 Active isosorbide dinitrate (ISORDIL) 5 mg [...] migh t be different from the original. Butcher Supervisor: Dr. 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 Not on file Not on file Not on file Last Filed Vital Signs Vital Sign Reading Time Taken Comments Blood Pressure 128/90 06/21/2024 10:51 AM VIBRATORY PILE DRIVER Pulse 82 03/22/2012 2:23 PM CDT Temperature - - Respiratory Rate 18 03/22/2012 2:23 PM CDT Oxygen Saturation 97% 03/22/2012 1:51 PM CDT Inhaled Oxygen Concentration - - Weight 141.2 kg (311 lb 3.2 oz) 024 10:51 AM VIBRATORY PILE DRIVER Height 167.6 cm (5' 6 ) 05/17/2024 11:2 7 AM CDT Body Mass Index 50.23 05/17/2024 11:27 AM CDT Plan of Treatment Upcoming Encounters Date Type Department Care Team (Late st Contact Info) Description 12/29/2024 11:30 AM CDT Office Visit [facility] OFFSET PRESS OPERATOR [facility] [address] [place] [address] Kendrick Teague MD [address] [place] [address] Health Maintenance Due Date Last [...] PAP (05/17/2024 4:26 PM CDT) COMMENT (PAP): [facility] Comment: This order for age-based cervical cancer and STI screening follows ACOG guidelines(PB 168, 140, FQZ252). See individual assays for performing site location. CLINICAL INFORMATION [facility] Comment:None given LAST MENSTRUAL PERIOD [facility]- [place] Comment:10/02/2023 PREV PAP: [facility]- [place] Comment:NONE GIVEN PREV BX: [facility] [place] Comment:NONE GIVEN SOURCE [facility]- [place] Comment:Endocervix ADEQUACY: [facility] Comment: Satisfactory for evaluation. Endocervical/transformation zone component absent. PAP INTERP [facility] Comment: Cytology Results: Negative for intraepithelial lesion or malignancy. COMMENT (PAP TEST) Q umobilePeopleRikki Ramirez Comment: This Pap test has been evaluated with computer assisted technology. DROSS PULLER: Ni Ramirez Comment: MEF, CT(ASCP) CT screening location: [place] [address] [place] [address] EXPLANATORY NOTE Que EaselRikki Ramirez Comment: EXPLANATORY NOTE: The Pap is [...] information. HPV E6/E7 Not Detected Not Detected [facility] Comment: Methodology: Credit Operations Processor-Mediated Amplification This assay detects E6/E7 viral messenger RNA (mRNA) from 14 high-risk HPV types (16,18,31,33,35,39,45,51,52,56,58,59,66,68). Cervical sources are required for HPV testing. If a vaginal source from a patient who has had a total hysterectomy with removal of cervix was submitted, please contact the testing laboratory for alternative testing options. For additional information, please refer to http://education.[employer]/faq/VOX962o7 (This link if provided for information/ educational purposes only.) Test Performed at: [facility] [id number] [id number] Torin GUZMAN Genital SWAB OF ENDOCERVIX / Unknown 05/17/2024 4:26 PM CDT 05/18/2024 3:48 AM CDT us Kendrick Teague MD PATHOLOGY/CYTOLOGY ORDERABLE S Final Result [facility] [phone] [facility] [id number] [id number] from Last 3 Months or Most Recently Relevant to Health Maintenance Insurance Riiid [id number] RX [employer] Member Subscriber Plan / Payer (Ef fective 2023-Present) Name:Walt Huitron Relation to Subscriber:Self Name:Walt Huitron Subscriber ID:Not on file Payer ID:Not on file Group ID:[id number] Type:RX Commercial Address: [address] [employer] (INTERNAL) [facility] Care Teams Cabin Agent Relationship Specialty Start Date End Date Masoud Hayes MD PCP - General Internal Medicine 03/08/12
--- OUTSIDE RECORDS SUMMARY | 2024-12-14 20:55 | XMS_ITS | Clinical Summary ---
Author Organization [facility] Address [address] [place] [address] Care Team Providers Care Computer Aided Design Operator Name Role Phone Ann Serrano MD Unavailable [phone] Lynn Rodriguez MD Primary Care Provider Allergies [...] s:Uncontrolled type 2 diabetes mellitus with hyperglycemia (HCC),custodial (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) Use for [...] NEBULIZER EVERY 6 HOURS NEEDED FOR WHEEZING (ACCOUNT SERVICES MANAGER RECOMMENDS NOT EXCEEDING 4 VIALS/DAY) 150 [...] a day for 10 days 20 tablet/cap rduy 025 2024 Active Problems Problem Noted Date Diagnosed Date Uncontrolled diabetes mellitus with hyperglycemi a 08/14/2024 Acute hypoxic respiratory failure 08/13/2024 Assessment & Plan (08/26/2024 6:09 PM INSOLE TAPER): Recent hospitalization likely for CAP followed by RSV Symptoms resolved 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 07/13/2024 Assessment & Plan (07/13/2024 12:22 PM INSOLE TAPER): - Further complicates diabetes management Need for vaccination 04/06/2024 Assessment & Plan (04/06/2024 4:14 PM CDT): Received pneumonia vaccine today history of pneumonia currently no complaints last bout in 08/2023 Head trauma 09/04/2022 Assessment & Plan (09/04/2022 2:35 PM INSOLE TAPER): No signs of neurological abnormality on examination [...] booster Assessment & Plan (06/24/2021 3:28 PM INSOLE TAPER): Pito vaccine 10/05/2020 and Moderna booster Jun 2021 Major depressive disorder 04/22/2021 Assessment & Plan (01/06/2024 9:09 AM CDT): Stable on current medication regimen. Assessment & Plan (01/17/2022 10:21 AM CDT): Stable on current medication regimen. Assessment & Plan (07/17/2021 2:07 PM INSOLE TAPER): Better controlled on venlafaxine. Assessment & Plan (04/22/2021 8:25 AM CDT): Restart venlafaxine and warned of side effects and call back if any develop or if no improvement. Type 2 diabetes mellitus with hyperlipidemia 06/2020 Assessment & Plan (01/06/2024 9:09 AM CDT): A1c above goal. Will start Mounjaro soon. Continue other medications as directed by her cutter and presser. Diet exercise discussed. Hopefully may be able to wean prednisone in the near future as well. Assessment & Plan (06/15/2023 10:48 AM INSOLE TAPER): She knows that the steroids will exacerbate her hyperglycemia and should be in contact with her cutter and presser for management. Assessment & Plan (06/08/2023 5:26 PM INSOLE TAPER): Poor control of her diabetes prior to this hospitalization and even worse now on prednisone. Follow-up with her cutter and presser for management. Diet exercise weight loss recommended. Assessment & Plan (01/21/2023 9:50 AM CDT): Blood sugars remain above goal. Hopefully the recent addition of mounjaro will help significantly. Discuss up titration of this and her mealtime insulin with her cutter and presser. Diet exercise discussed. Check A1c and fasting blood sugar before next visit. Assessment & Plan (08/02/2022 12:16 PM INSOLE TAPER): A1c poorly controlled. Importance of diet exercise weight loss discussed at length. Continue her Ozempic and insulin and needs to contact her cutter and presser soon as possible for guidance on further therapy. Assessment & Plan (01/17/2022 10:22 AM CDT): Patient aware A1c grossly uncontrolled. Must work on diet exercise and weight loss. She has to get back on her insulin and should discuss this today with her cutter and presser. Risks posed her health with poor glycemic control discussed. Assessment & Plan (07/13/2020 8:34 AM INSOLE TAPER): A1c above goal. Importance of diet exercise weight loss discussed. Continue current medication regimen and follow-up with her cutter and presser as they direct. 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 Unfortunately lab work and skin biopsy inconclusive. Discussed possible rheumatology 2nd opinion here at [facility] and patient will call back if desired. Assessment & Plan (06/15/2023 10:48 AM INSOLE TAPER): Certainly making a case for underlying vasculitis [...] condition. Assessment & Plan (06/20/2020 9:35 AM INSOLE TAPER): Unclear etiology but I am thinking of [...] tolerated Assessment & Plan (08/26/2024 6:10 PM INSOLE TAPER): Body mass index is 49.1 kg/m . BMI Follow-up includes: nutrition counseling, exercise counseling, and education provided. Assessment & Plan (07/13/2024 12:20 PM INSOLE TAPER): - Increase Mounjaro to 10 mg weekly [...] tolerated. Assessment & Plan (06/08/2023 5:23 PM INSOLE TAPER): Patient is encouraged to lose weight with a combination of caloric reduction and increased exercise. Various strategies discussed. The long-term risks associated with continued morbid obesity discussed. Assessment & Plan (09/04/2022 2:34 PM INSOLE TAPER): Patient is encouraged to lose weight with a combination of caloric reduction and increased exercise. Various strategies discussed. The long-term risks associated with continued morbid obesity discussed. Assessment & Plan (08/02/2022 12:16 PM INSOLE TAPER): Patient is encouraged to lose weight with [...] discussed. Assessment & Plan (07/13/2020 8:34 AM INSOLE TAPER): Patient is encouraged to lose weight with a combination of caloric reduction and increased exercise. Various strategies discussed. The long-term risks associated with continued morbid obesity discussed. Assessment & Plan (06/20/2020 9:35 AM INSOLE TAPER): Patient is encouraged to lose weight with a combination of caloric reduction and increased exercise. Various strategies discussed. The long-term risks associated with continued morbid obesity discussed. Assessment & Plan (07/08/2019 8:44 AM INSOLE TAPER): Patient is encouraged to lose weight with a combination of caloric reduction and increased exercise. Various strategies discussed. The long-term risks associated with continued morbid obesity discussed. Irregular menses 06/03/2019 Allergic rhinitis 07/05/2018 Assessment & Plan (02/23/2023 1:30 PM CDT): Nasal saline spray (Simply saline, Little Remedies, [place], [place]) 2 second sprays or 2 squeezes into [...] daily Assessment & Plan (07/17/2021 2:07 PM INSOLE TAPER): Claritin montelukast. Assessment & Plan (04/22/2021 8:25 AM CDT): Currently using Claritin and montelukast. She has not been trying Flonase as her nose is being to congested. Recommended sinus rinses her using a hot warm shower. Could also try Afrin for few days. Assessment & Plan (07/08/2019 8:43 AM INSOLE TAPER): Add montelukast to her [place]. She struggles with nasal sprays due to chronic congestion. Assessment & Plan (07/05/2018 9:24 AM INSOLE TAPER): Try Afrin for 3 days along with [...] mg/dL Assessment & Plan (07/13/2024 12:21 PM INSOLE TAPER): - Last LDL 103, TG 308, TC [...] triglycerides. Assessment & Plan (09/12/2023 8:12 PM INSOLE TAPER): Continue statin and optimize glycemic control Assessment & Plan (02/16/2023 8:14 PM CDT): Continue statin and optimize glycemic control Assessment & Plan (01/21/2023 9:50 AM CDT): Continue her atorvastatin and work on diet exercise and check lipids and LFTs before next visit. Assessment & Plan (08/02/2022 12:15 PM INSOLE TAPER): Well controlled on current therapy and will check a lipid panel and LFTs in 6 months. Assessment & Plan (01/17/2022 10:21 AM CDT): Well controlled on current therapy and will check a lipid panel and LFTs in 6 months. Assessment & Plan (07/17/2021 2:06 PM INSOLE TAPER): Well controlled on current therapy and will check a lipid panel and LFTs in 6 months. Assessment & Plan (06/24/2021 3:28 PM INSOLE TAPER): Continue statin and optimize glycemic control Assessment & Plan (12/19/2020 7:53 AM CDT): Continue statin and optimize glycemic control Assessment & Plan (07/13/2020 8:34 AM INSOLE TAPER): Well controlled on current therapy and will check a lipid panel and LFTs in 6 months. Assessment & Plan (06/08/2020 8:31 AM INSOLE TAPER): LDL within goal. Continue statin and optimize glycemic control Assessment & Plan (07/08/2019 8:42 AM INSOLE TAPER): Well controlled on current therapy and will check a lipid panel and LFTs in 12 months. Assessment & Plan (09/01/2018 2:22 PM INSOLE TAPER): Continue statin, optimize glycemic control Assessment & Plan (07/05/2018 9:23 AM INSOLE TAPER): Well controlled on current therapy and will check a lipid panel and LFTs in 6 months. Assessment & Plan (08/26/2017 4:27 PM INSOLE TAPER): Start atorvastatin and check lipids and LFTs in 3-4 months. Call back for results. Vitamin D deficiency 07/02/2017 Assessment & Plan (07/13/2024 12:22 PM INSOLE TAPER): - Last Vitamin D 42 (12/2023), replete [...] week Assessment & Plan (09/12/2023 8:12 PM INSOLE TAPER): Continue long-term supplement Assessment & Plan (02/16/2023 8:14 PM CDT): Continue long-term supplement Assessment & Plan (08/02/2022 12:15 PM INSOLE TAPER): Continue current supplementation and check level in 1 year. Assessment & Plan (07/17/2021 2:06 PM INSOLE TAPER): Continue current supplementation and check level in 1 year. Assessment & Plan (06/24/2021 3:29 PM INSOLE TAPER): Continue long-term supplement Assessment & Plan (12/19/2020 7:53 AM CDT): Continue long-term supplement Assessment & Plan (07/13/2020 8:33 AM INSOLE TAPER): Continue current supplementation and check level in 1 year. Assessment & Plan (06/08/2020 8:31 AM INSOLE TAPER): Vitamin-D level within goal, continue chronic supplement Assessment & Plan (07/08/2019 8:42 AM INSOLE TAPER): Continue current supplementation and check level in 1 year. Assessment & Plan (06/03/2019 8:24 AM CDT): Recently ran out of supplement, so we will restart and check her level today. Also check B12 Assessment & Plan (09/01/2018 2:22 PM INSOLE TAPER): Continue supplement Assessment & Plan (07/05/2018 9:23 AM INSOLE TAPER): Continue current supplementation and check level in 1 year. Assessment & Plan (08/26/2017 4:26 PM INSOLE TAPER): Continue current supplementation and check level in [...] Component Value Date HGBA1C 11.7 07/13/2024 Per [place] [employer], goal A1c is less 7% [...] etc. Assessment & Plan (08/26/2024 6:10 PM INSOLE TAPER): Assessment & Plan (07/13/2024 12:20 PM INSOLE TAPER): - Diabetes is complicated by hyperlipidemia, hypertension, morbid obesity and chronic steroid use. Uncontrolled. Lab Results Component Value Date HGBA1C 11.7 07/13/2024 Per [place] [employer], goal A1c is less 7% [...] in prescriptions for both Dexcom G7 and [employer] Silva 3 CGM for olivares checking. Also [...] Return visit 3 months to see the DIRECTOR ORACLE RETAIL/PA, 6 months to see me. Assessment & [...] Component Value Date HGBA1C 12.5 11/17/2023 Per [place] [employer], goal A1c is less 7% [...] Component Value Date HGBA1C 12.5 11/17/2023 Per [place] [employer], goal A1c is less 7% without significant hypoglycemia. - Management Goal: re-start and adherence to medication regimen - Continue current medication regimen at this time. - Patient called local pharmacy to confirm that they do have prescriptions for her Semglee. She is going to crop picker today after this visit. - Insurance [...] that I am available via phone or Element Powerhart if they have any concerns for hypo/hyperglycemia, medication refills, etc. Assessment & Plan (09/12/2023 8:13 PM INSOLE TAPER): Very high glucoses; multifactorial including steroid therapy, [...] daily. Assessment & Plan (06/24/2021 3:29 PM INSOLE TAPER): Much improved but needs a little more basal insulin. Assessment & Plan (12/19/2020 7:53 AM CDT): Multiple medications, but now requires insulin. We can gradually adjust her Lantus based on her clinical response. Assessment & Plan (06/08/2020 8:32 AM INSOLE TAPER): Glucoses somewhat better now that she is [...] motivator. Assessment & Plan (07/08/2019 8:43 AM INSOLE TAPER): Continue increased dose of Ozempic and also continue Invokana. Importance of dietary changes increase exercise weight loss discussed. Follow-up with her cutter and presser as they direct. Assessment & Plan (06/03/2019 8:25 AM CDT): Somewhat suboptimal, would benefit from increasing Ozempic and continuing efforts with diet and lifestyle. Needs follow-up labs Assessment & Plan (09/01/2018 2:22 PM INSOLE TAPER): Glucoses a little high, but she has bruising with Victoza so she may benefit by changing to weekly Ozempic, which is a little stronger, as well. Jardiance is been ineffective, so we may need to provide preauthorization for Invokana Assessment & Plan (07/05/2018 9:23 AM INSOLE TAPER): A1c above goal. We stressed importance of increased exercise, reduce calories, weight loss. Could consider switching Victoza to ozempic. Otherwise does not tolerate metformin or sulfonylureas. May need insulin soon. She is directed to follow up with her cutter and presser more quickly than her next scheduled appointment in November. Assessment & Plan (08/26/2017 4:26 PM INSOLE TAPER): Continue current medication regimen and follow up with her cutter and presser as they direct. Low carb diet weight loss recommended. Check blood sugars once daily. Start atorvastatin and check lipids and LFTs in 3-4 months. Anxiety state 12/17/2013 Overview (11/07/2016): ANXIETY STATE NOS Benign hypertension 12/17/2013 Overview (11/07/2016): BENIGN HYPERTENSION Assessment & Plan (07/13/2024 12:21 PM INSOLE TAPER): - Above goal today - Encouraged her [...] monitor. Assessment & Plan (06/08/2023 5:25 PM INSOLE TAPER): Stop amlodipine with current issues of swelling. Pressure currently well controlled and should monitor at home Assessment & Plan (01/21/2023 9:49 AM CDT): Blood pressure well controlled on lisinopril Assessment & Plan (09/04/2022 2:34 PM INSOLE TAPER): Blood pressure well controlled on her lisinopril. Assessment & Plan (08/02/2022 12:15 PM INSOLE TAPER): Increase lisinopril to 20 mg daily. Monitor blood pressure at home call back if no improvement. Assessment & Plan (01/17/2022 10:21 AM CDT): Well controlled on the current regimen. Avoidance of salt, proper body weight, and routine exercise recommended. Assessment & Plan (07/17/2021 2:06 PM INSOLE TAPER): Well controlled on the current regimen. Avoidance of salt, proper body weight, and routine exercise recommended. Assessment & Plan (04/22/2021 8:24 AM CDT): Well controlled on the current regimen. Avoidance of salt, proper body weight, and routine exercise recommended. Assessment & Plan (07/13/2020 8:34 AM INSOLE TAPER): Well controlled on the current regimen. Avoidance of salt, proper body weight, and routine exercise recommended. Assessment & Plan (07/08/2019 8:42 AM INSOLE TAPER): Well controlled on the current regimen. Avoidance of salt, proper body weight, and routine exercise recommended. Assessment & Plan (09/01/2018 2:21 PM INSOLE TAPER): Blood pressure close to target, working on diet and lifestyle Assessment & Plan (07/05/2018 9:23 AM INSOLE TAPER): Well controlled on the current regimen. Avoidance of salt, proper body weight, and routine exercise recommended. Assessment & Plan (08/26/2017 4:25 PM INSOLE TAPER): Well controlled on the current regimen. Avoidance of salt, proper body weight, and routine exercise recommended. Anemia 12/29/2012 Extrinsic asthma 08/19/2012 Overview (06/03/2019): Description: frequent flares Assessment & Plan (08/26/2024 6:08 PM INSOLE TAPER): Recent exacerbation due to CAP followed by RSV Symptoms improved Continue present plan and medication--albuterol prn, montelukast Assessment & Plan (07/13/2020 8:36 AM INSOLE TAPER): Doing well on her S [id number]|2024-12-14 20:29:00|2024-12-14 20:28:00|XMS_ITS|[facility] DAGORD[facility]|External Medical Summaries|[id number]|" Encounter Summary Created on: December 14, 2024 Camila Huitron : 1975 Sex: Female Author Organization [facility] Address [address] [facility] [address] [place] [address] Phone Care Team Providers Care Computer Aided Design Operator Name Role Phone Kishor Saleh MD Primary Care Provider [phone] Ann Serrano MD Unavailable [phone] No, Physician Primary Care Provider Kishor Saleh MD Primary Care Provider [phone] Lynn Rodriguez MD Primary Care Provider Encounter Details Date Type Department Care Team (Late st Contact Info) Description 09/30/2017 Orders Only [facility] Provider, MD [place] [facility] [place] [id number] Social History Tobacco Use Types Packs/Day Years Used Date Smoking Tobacco: Never Smokeless Tobacco: Never Alcohol Use Standard Drinks/Week Comments No 0 (1 standard drink = 0.6 oz pur e alcohol) Comments Unknown Sex and Gender Information Value Date Recorded Sex Assigned at Not on file Legal Sex Female 11:54 PM INSOLE TAPER Gender Identity Female 09/19/2020 8:37 AM INSOLE TAPER Sexual Orientation Straight 09/19/2020 8: 37 AM INSOLE TAPER documented as of this encounter Plan of Treatment Not on file documented as of this encounter Procedures Procedure Name Priority Date/Time Associated Diagnosis Comments DISCHARGE LABORATORY CUMULATIVE REPORT 09/30/2017 12:00 AM INSOLE TAPER documented in this encounter Results * DISCHARGE LABORATORY CUMULATIVE REPORT (09/30/2017 12:00 AM INSOLE TAPER) Narrative 09/30/2017 12:00 AM INSOLE TAPER Ordered by an unspecified provider. Historical Provider LAB BLOOD ORDERABLES Flora l Result documented in this encounter Visit Diagnoses Not on filedocumented in this encounter Additional Health Concerns Infection Onset Date Last Indicated Resolved Time COVID: Suspected 08/13/2022 08/13/2022 08/13/2022 1:16 PM INSOLE TAPER COVID: Suspected 11/07/2024 11/07/2024 11/07/2024 2:20 PM CDT documented as of this encounter Care Teams Computer Aided Design Operator Relationship Specialty Start Date End Date Kishor Saleh MD PCP - General 09/28/08 11/16/23 No, Physician PCP - General 11/17/23 12/28/23 Kishor Saleh MD [address] [facility] [address] [place] [address] PCP - General Internal Medicine 12/29/23 04/05/24 [place] [address] [facility] [address] [place] [address] PCP - General Internal Medicine 04/06/24 Ann Serrano MD Referring Physician Endocrinology Diabetes & Metabolism 06/08/20 documented as of this encounter "
--- OUTSIDE RECORDS SUMMARY | 2024-12-14 20:56 | XMS_ITS | Encounter Summary ---
Author Organization [facility] Address [address] [place] [address] Care Team Providers Care Water Filtration Technician Name Role Phone Tiffany Cox MD Primary Care Provider Unavailable Kishor Saleh MD Primary Care Provider Encounter Details Date Type Department Care Team (Late st Contact Info) Description 07/03/[address] [facility] - DermPath Lab [address] [place] [address] [place] [address] [address] Social History Tobacco Use Types Packs/Day Years Used Date Smoking Tobacco: Never Assessed Comments Unknown Sex and Gender Information Value Date Recorded Sex Assigned at Not on file Legal Sex Female 4:50 AM CONTAINER FINISHER Gender Identity Not on file Sexual Orientation Not on file documented as of this encounter Plan of Treatment Not on file documented as of this encounter Procedures Procedure Name Priority Date/Time Associated Diagnosis Comments DERMATOPATHOLOGY Routine 07/01/2023 3:33 AM CONTAINER FINISHER documented in this encounter Results * DERMATOPATHOLOGY (07/01/2023 3:33 AM CONTAINER FINISHER) Case Report Dermatopathology Report Case: [id number] Authorizing Provider: Kendrick Christopher MD Collected: 07/01/2023 03:33 AM Ordering Location: [facility] DermPath Lab Received: 07/03/2023 12:12 PM Pathologist: Bella Schwab MD Specimen: Skin, right inferior knee 3:45 PM [facility] DERMATOPATHOLOGY [facility]ORATORY Final Diagnosis Specimen A. SKIN, right inferior knee: STASIS DERMATITIS (L30.8) DERMAL FIBROSIS (L90.5) (see microscopic description) 3:45 PM [facility] DERMATOPATHOLOGY LABORATORY Clinical History Rash; R/O Leukocytoclastic Vasculitis, Livedo Reticularis 3:45 PM [facility] DERMATOPATHOLOGY [facility]ORAT[facility] Gross Description Specimen A: Received is one formalin filled container labeled with the patient's name and designated right inferior knee. The specimen consists of a punch biopsy measuring 6x5x6 mm. Jar 0. 3:45 PM [facility] DERMATOPATHOLOGY LABORATORY [...] sections were obtained and reviewed. 3:45 PM [facility] DERMATOPATHOLOGY LABORATORY Disclaimer An external and internal positive and negative controls are appropriate for the histochemical, immunohistochemical and immunofluorescence stain(s) in this case (if any), except where stated explicitly. The performance characteristics of the stain(s) cited in this report were developed and its performance characteristic determined by the Dermatopathology Laboratory at [facility], directed by Dr. Arnol Perea. These tests need not be, and therefore are not, approved by the [place] Food and Drug Administration. The tests are used for clinical purposes. Billing Codes Specimen Charges Stain Charges 03807 1 04322 1 3 3:45 PM [facility] DERMATOPATHOLOGY [facility]OR[facility] Embedded Images 3 3:45 PM [facility] DERMATOPATHOLOGY [facility]ORY Pathology/Cytolo gy TISSUE SPECIMEN FROM SKIN / Unknown 07/01/2023 3:33 AM CONTAINER FINISHER 07/03/2023 12:12 PM CONTAINER FINISHER us Kendrick Christopher MD LAB - PATHOLOGY/CYTOLOGY O RDERABLES Final Result DERMATOPATHOLOGY LABORATORY [facility] - Department of Dermatology [facility] Medicine [address] [place] [address], [address] [phone] documented in this encounter Visit Diagnoses Not on filedocumented in this encounter Additional Health Concerns Infection Onset Date Last Indicated Resolved Time COVID-19 Under Investigation 08/13/2024 08/13/2024 08/13/2024 11:30 PM CONTAINER FINISHER documented as of this encounter Care Teams Water Filtration Technician Relationship Specialty Start Date End Date Tiffany Cox MD PCP - General Internal Medicine 05/16/13 07/30/23 Kishor Saleh MD [address] [place] [address] [address] [place] [id number] PCP - General Internal Medicine 07/31/23 documented as of this encounter
--- OUTSIDE RECORDS SUMMARY | 2024-12-14 20:56 | XMS_ITS | Encounter Summary ---
Author Organization [facility] Health Address [address] [facility] [place] [address] Care Team Providers Care Driller Operator Name Role Phone Tiffany Cox MD Primary Care Provider Unavailable Kishor Saleh MD Primary Care Provider Encounter Details Date Type Department Care Team (Late st Contact Info) Description 07/03/2023 Lab Requisition [facility] [address] [place] [phone] [place] [address] [facility] [address] S[address] [place] [address] Social History Tobacco Use Types Packs/Day Years Used Date Smoking Tobacco: Never Assessed Comments Unknown Sex and Gender Information Value Date Recorded Sex Assigned at Not on file Legal Sex Female 4:50 AM MICA LAMINATING MACHINE FEEDER Gender Identity Not on file Sexual Orientation Not on file documented as of this encounter Plan of Treatment Not on file documented as of this encounter Visit Diagnoses Not on filedocumented in this encounter Additional Health Concerns Infection Onset Date Last Indicated Resolved Time COVID-19 Under Investigation 08/13/2024 08/13/2024 08/13/2024 11:30 PM MICA LAMINATING MACHINE FEEDER documented as of this encounter Care Teams Driller Operator Relationship Specialty Start Date End Date Tiffany Cox MD PCP - General Internal Medicine 05/16/13 07/30/23 Kishor Saleh MD [address] [place] [address] [address] S[address] [place] [address] PCP - General Internal Medicine 07/31/23 documented as of this encounter
--- OUTSIDE RECORDS SUMMARY | 2024-12-14 20:56 | XMS_ITS | Encounter Summary ---
Author Organization [facility] Address [address] [facility] [place] [address] Care Team Providers Care Flight Manager Name Role Phone Tiffany Cox MD Primary Care Provider Unavailable Kishor Saleh MD Primary Care Provider Encounter Details Date Type Department Care Team (Late st Contact Info) Description 07/03/2023 Lab Requisition [facility] - DermPath Lab [address] [place] [address] [place] [address] [address] Social History Tobacco Use Types Packs/Day Years Used Date Smoking Tobacco: Never Assessed Comments Unknown Sex and Gender Information Value Date Recorded Sex Assigned at Not on file Legal Sex Female 4:50 AM MATERIAL PREPARATION WORKER Gender Identity Not on file Sexual Orientation Not on file documented as of this encounter Plan of Treatment Not on file documented as of this encounter Procedures Procedure Name Priority Date/Time Associated Diagnosis Comments IMMUNOFLUORESCENT STUDY DERM Routine 07/01/2023 3:33 AM MATERIAL PREPARATION WORKER documented in this encounter Results * IMMUNOFLUORESCENT STUDY DERM (07/01/2023 3:33 AM MATERIAL PREPARATION WORKER) Case Report Dermatopathol ogy Report Case: [id number] Authorizing Provider: Kendrick Christopher MD Collected: 07/01/2023 03:33 AM Ordering Location: [facility] DermPath Lab Received: 07/03/2023 12:13 PM Pathologist: Bella Schwab MD Specimen: Skin, right superior han 3:46 PM [facility] DERMATOPATHOLOGY LABORATORY Final Diagnosis Specimen A. SKIN, right superior han: COLLOID BODIES (L98.9) (see microscopic description) (see fixed tissue results) 3:46 PM MATERIAL PREPARATION WORKER DERMATOPATHOLOGY LABORATORY Direct Immunofluorescence Report - Specimen A Specimen A IgA IgM IgG C3 CollV Fibrinogen Epidermis Negative Negative Negative Negative Negative Negative Basement Membrane Negative Negative Negative Negative 2+ Negative Vessels Negative Negative Negative Negative 2+ Negative Interstitium Colloid Colloid Colloid Negative Negative Non specific 3 3:46 PM MATERIAL PREPARATION WORKER DERMATOPATHOLOGY LABORATORY Clinical History Rash; R/O Leukocytoclas tic Vasculitis, Livedo Reticularis 3:46 PM MATERIAL PREPARATION WORKER DERMATOPATHOLOGY LABORATORY Gross Description Specimen A: Received [...] rubbing. See fixed tissue results. 3:46 PM MATERIAL PREPARATION WORKER DERMATOPATHOLOGY LABORATORY Disclaimer An external and internal positive and negative controls are appropriate for the histochemical , immunohistoch emical and immunofluores cence stain(s) in this case (if any), except where stated explicitly. The performance characteristi cs of the stain(s) cited in this report were developed and its performance characteristi c determined by the Dermatopathol ogy Laboratory at [facility], directed by Dr. Arnol Perea. These tests need not be, and therefore are not, approved by the [place] Food and Drug Administratio n. The tests are used for clinical purposes. Billing Codes Specimen Charges Stain Charges 57277 75455 96884 [id number] 69007 1 1 1 1 1 1 3 3:46 PM MATERIAL PREPARATION WORKER DERMATOPATHOLOGY LABORATORY Embedded Images 3 3:46 PM MATERIAL PREPARATION WORKER DERMATOPATHOLOGY LABORATORY Pathology/Cytolo gy TISSUE SPECIMEN FROM SKIN / Unknown 07/01/2023 3:33 AM MATERIAL PREPARATION WORKER 07/03/2023 12:13 PM MATERIAL PREPARATION WORKER Kendrick Christopher MD LAB - PATHOLOGY/CYTOLOGY O RDERABLES Final Result DERMATOPATHOLOGY LABORATORY [facility] - Department of Dermatology [address], [address] [phone] documented in this encounter Visit Diagnoses Not on filedocumented in this encounter Additional Health Concerns Infection Onset Date Last Indicated Resolved Time COVID-19 Under Investigation 08/13/2024 08/13/2024 08/13/2024 11:30 PM MATERIAL PREPARATION WORKER documented as of this encounter Care Teams Flight Manager Relationship Specialty Start Date End Date Tiffany Cox MD PCP - General Internal Medicine 05/16/13 07/30/23 Kishor Saleh MD [address] [place] [address] DR S[address] [place] [address] PCP - General Internal Medicine 07/31/23 documented as of this encounter
--- OUTSIDE RECORDS SUMMARY | 2024-12-14 20:56 | XMS_ITS | Encounter Summary ---
Author Organization [facility] Healthcare Address [address] [place] [address] Care Team Providers Care Sewing Machine Operator Name Role Phone Ann Serrano MD Unavailable [phone] Lynn Rodriguez MD Primary Care Provider Reason for Visit * Reason Comments Follow-up Encounter Details Date Type Department Care Team (Late st Contact Info) Description 12/13/2024 2:30 PM CDT Office Visit [facility] Pulmonary at [address] [place] [address] [address] Do[address] [place] [address] Social History Tobacco Use Types [...] on file Legal Sex Female 11:54 PM DIESEL ENGINE ERECTOR Gender Identity Female 09/19/2020 8:37 AM DIESEL ENGINE ERECTOR Sexual Orientation Straight 09/19/2020 8: 37 AM DIESEL ENGINE ERECTOR documented as of this encounter Last Filed [...] 12/08/2024 added in this encounter Care Teams Sewing Machine Operator Relationship Specialty [place] [address] [place] [address] PCP - General Internal Medicine 04/06/24 Ann Serrano MD Referring Physician Endocrinology Diabetes & Metabolism 06/08/20 documented as of this encounter
--- OUTSIDE RECORDS SUMMARY | 2024-12-14 20:56 | XMS_ITS | Encounter Summary ---
Author Organization [facility] Address [address] [place] [address] Phone Care Team Providers Care Microsoft Access Developer Name Role Phone Kishor Saleh MD Primary Care Provider [phone] Ann Serrano MD Unavailable No, Physician Primary Care Provider [phone] Kishor Saleh MD Primary Care Provider [phone] Lynn Rodriguez MD Primary Care Provider Encounter Details Date Type Department Care Team (Late st Contact Info) Description 09/30/2017 Orders Only [facility] ProviderStephenie MD [address] [place] [address] Social History Tobacco Use Types Packs/Day Years Used Date Smoking Tobacco: Never Smokeless Tobacco: Never Alcohol Use Standard Drinks/Week Comments No 0 (1 standard drink = 0.6 oz pur e alcohol) Comments Unknown Sex and Gender Information Value Date Recorded Sex Assigned at Not on file Legal Sex Female 11:54 PM GANG PUNCH OPERATOR Gender Identity Female 09/19/2020 8:37 AM GANG PUNCH OPERATOR Sexual Orientation Straight 09/19/2020 8: 37 AM GANG PUNCH OPERATOR documented as of this encounter Plan of Treatment Not on file documented as of this encounter Procedures Procedure Name Priority Date/Time Associated Diagnosis Comments DISCHARGE LABORATORY CUMULATIVE REPORT 09/30/2017 12:00 AM GANG PUNCH OPERATOR documented in this encounter Results * DISCHARGE LABORATORY CUMULATIVE REPORT (09/30/2017 12:00 AM GANG PUNCH OPERATOR) Narrative 09/30/2017 12:00 AM GANG PUNCH OPERATOR Ordered by an unspecified provider. us Historical Provider LAB BLOOD ORDERABLES Flora l Result documented in this encounter Visit Diagnoses Not on filedocumented in this encounter Additional Health Concerns Infection Onset Date Last Indicated Resolved Time COVID: Suspected 08/13/2022 08/13/2022 08/13/2022 1:16 PM GANG PUNCH OPERATOR COVID: Suspected 11/07/2024 11/07/2024 11/07/2024 2:20 PM CDT documented as of this encounter Care Teams Microsoft Access Developer Relationship Specialty Start Date End Date Kishor Saleh MD PCP - General 09/28/08 11/16/23 No, Physician PCP - General 11/17/23 12/28/23 Kishor Saleh MD [address] [facility] [address] [address] PCP - General Internal Medicine 12/29/23 04/05/24 [place] [address] [facility] [address] [place] [address] PCP - General Internal Medicine 04/06/24 Ann Serrano MD Referring Physician Endocrinology Diabetes & Metabolism 06/08/20 documented as of this encounter
--- OUTSIDE RECORDS SUMMARY | 2024-12-14 20:56 | XMS_ITS | Encounter Summary ---
Author Organization [facility] Healthcare Address [address] [place] [address] Care Team Providers Care Land Commissioner Name Role Phone Ann Serrano MD Unavailable [phone] Lynn Rodriguez MD Primary Care Provider Encounter Details Date Type Department Care Team (Late st Contact Info) Description 11/07/2024 Results Follow-Up [facility] Con[facility]ient Care at [address] [address] Karley Rubi, LONG FILLER CIGAR ROLLER MACHINE [address] [place] [address] [address] [place] [address] Social History Tobacco Use Types [...] on file Legal Sex Female 11:54 PM LIQUOR GALLERY OPERATOR Gender Identity Female 09/19/2020 8:37 AM LIQUOR GALLERY OPERATOR Sexual Orientation Straight 09/19/2020 8: 37 AM LIQUOR GALLERY OPERATOR documented as of this encounter Plan of Treatment Not on file documented as of this encounter Visit Diagnoses Not on filedocumented in this encounter Additional Health Concerns Infection Onset Date Last Indicated Resolved Time COVID: Suspected 11/07/2024 11/07/2024 11/07/2024 2:20 PM CDT documented as of this encounter Care Teams Land Commissioner Relationship Specialty [place] [address] [facility] [address] [place] [address] PCP - General Internal Medicine 04/06/24 Ann Serrano MD Referring Physician Endocrinology Diabetes & Metabolism 06/08/20 documented as of this encounter
--- OUTSIDE RECORDS SUMMARY | 2024-12-14 20:56 | XMS_ITS | Clinical Summary ---
Author Organization [facility] [employer] [employer] Address [address] [facility] [place] [address] Care Team Providers Care Forester Aide Name Role Phone Kishor Saleh MD Primary Care Provider Source Comments [facility] [employer] [facility],non-owned Affiliates and Associated Physician Practices is amultiple site organization consisting of ambulatory clinics and hospital sitesin [place], [place], [place] and [place]. This disclosure is being madepursuant to the Care Everywhere program and may not contain all information available regarding this patient. Last updated 18.[facility] Allergies Active Allergy Reactions Criticality Noted Date [...] fluticasone propionate (Flonase) 50 MCG/ACT nasal spray [place] 2 (two) sprays into each nostril once [...] vitamin D, ergocalciferol , (Drisdol) 1.25 MG (40555 UT) capsule Take 1 (one) capsule by [...] any time in the past 12 m [facility], were you homeless or living in a assisted (including now)? No 08/15/2024 Comments Unknown Sex and Gender Information Value Date Recorded Sex Assigned at Not on file Legal Sex Female 4:50 AM KINDERGARTEN ASSISTANT Gender Identity Not on file Sexual Orientation Not on file Last Filed Vital Signs Vital Sign Reading Time Taken Comments Blood Pressure 154/92 08/18/2024 12:25 PM KINDERGARTEN ASSISTANT Pulse 102 08/18/2024 12:25 PM KINDERGARTEN ASSISTANT Temperature 36.7 C (98.1 F) 08/18/2024 12:25 PM KINDERGARTEN ASSISTANT Respiratory Rate 23 08/18/2024 12:2 5 PM KINDERGARTEN ASSISTANT Oxygen Saturation 90% 08/18/2024 12: 25 PM KINDERGARTEN ASSISTANT Inhaled Oxygen Concentration 21% 08/18/2024 2 :00 PM KINDERGARTEN ASSISTANT Weight 132.6 kg (292 lb 4.8 oz) 08/18/2024 4:00 AM KINDERGARTEN ASSISTANT Height 167.6 cm (5' 6 ) 08/13/2024 5:14 PM KINDERGARTEN ASSISTANT Body Mass Index 47.18 08/13/2024 5:14 PM KINDERGARTEN ASSISTANT Plan of Treatment Health Maintenance Due Date [...] (CALCIUM TOTAL) AM Draw 08/17/2024 4:16 AM KINDERGARTEN ASSISTANT HEMOGLOBIN A1C Routine 08/14/2024 3:27 AM KINDERGARTEN ASSISTANT from Last 3 Months or Most Recently Relevant to Health Maintenance Results * (ABNORMAL) BASIC METABOLIC PANEL (CALCIUM TOTAL) (08/17/2024 4:16 AM KINDERGARTEN ASSISTANT) Glucose 139(H) 70 - 99 mg/dL 08/17/2024 4:53 AM KINDERGARTEN ASSISTANT [facility] Sodium 140 136 - 145 mmol/L 08/17/2024 4:53 AM KINDERGARTEN ASSISTANT [facility] Potassium 3.5 3.5 - 5.1 mmol/L 08/17/2024 4:53 AM KINDERGARTEN ASSISTANT [facility] Chloride 108(H) 98 - 107 mmol/L 08/17/2024 4:53 AM KINDERGARTEN ASSISTANT [facility] CO2 24 22 - 29 mmol/L 08/17/2024 4:53 AM KINDERGARTEN ASSISTANT [facility] Calcium 8.9 8.4 - 10.4 [...] Unknown Venipuncture / Unknown 08/17/2024 4:16 AM KINDERGARTEN ASSISTANT 08/17/2024 4:30 AM [facility] Alexus Ramirez MD LAB - CHEMISTRY ORDERABLES Final Result [facility] [address] [place] [address] * (ABNORMAL) HEMOGLOBIN A1C (08/14/2024 3:27 AM [facility]) Hemoglobin A1c 10.1(H) <5.7 % 08/14/2024 3:48 AM [facility] Estimated Average Glucose 243 mg/dL 08/14/2024 3:48 AM [facility] Blood BLOOD SPECIMEN / Unknown Venipuncture / Unknown 08/14/2024 3:27 AM KINDERGARTEN ASSISTANT 08/14/2024 3:37 AM [facility] Narrative [facility] - 08/14/2024 3:48 AM [facility] HbA1c Interpretation: Normal: < 5.7% [...] MD LAB - CHEMISTRY ORDERABLES Final Result [facility] [address] [place] [address] from Last 3 Months or Most Recently Relevant to Health Maintenance Insurance [facility] [employer] Advance Directives * Full Code (Latest Code Status on File) Date Activated Date Inactivated Comments 08/13/2024 3:54 PM 08/18/2024 6:24 PM Care Teams Forester Aide Relationship Specialty Start Date End Date Kishor Saleh MD [address] [facility] [address] [address] [place] [address] PCP - General Internal Medicine 07/31/23
--- OUTSIDE RECORDS SUMMARY | 2024-12-14 20:56 | XMS_ITS | Continuity of Care Document ---
Author Organization [facility] Address [address] [facility] [address] [place] [address] Phone Care Team Providers Care Environmental Health And Safety Leader Name Role Phone Alex Ingram MD Unavailable [...] Diagnoses Date Provider Providers Copied on Encounter [facility], [address], [place], [place], [id number], [place] [phone] SEC [place] Professional Complete Exam (chief complaint) Diabetes mellitus without complication 3 Juan Jose Johnson. [address] [facility], [facility] [address], [place], [place], [id number], [place]. tel:[phone] Specialist: Ann Serrano MD, [address] [place], [address]. tel:[phone] alist: Ann Serrano MD, [facility] [place], [address]. tel:[phone] ring Provider: Kishor Saleh MD, [address] [facility] [address], [place], [address]. tel:[phone] [facility], [address], [place], [place], [id number], [place] tel:[phone] SEC [place] Professional diabetic eye exam (chief complaint) Diabetes mellitus without complicationE pidemic keratoconjunc tivitis of both eyes 2 Juan Jose Johnson. [address] [facility], [address], [place], [place], [id number], [place]. tel:[phone] Specialist: Ann Serrano MD, [address] [place], [address]. tel:[phone] ring Provider: Kishor Saleh MD, [address] [facility] [address], [place], [address]. tel:[phone] Office/outpa tient Visit, Est [facility], [address], [place], [place], [id number], [place] tel:[phone] SEC Alexandre [place] Professional 2 week EKC f/u (chief complaint) Epidemic keratoconjunc tivitis of both eyes 1 Juan Jose Johnson. [address] [employer], [facility] [address], [place], [place], [id number], [place]. tel:[phone] Specialist: Ann Serrano MD, [address] [place], [address]. tel:[phone] ring Provider: Kishor Saleh MD, [address] [facility] [address], [place], [address]. tel:[phone] Office/outpa tient Visit, [facility], [address] [place] [address] [address], [place], [place], [id number], tel:[phone] SEC Alexandre UNDERWOOD Professional Complete Exam (chief complaint) Epidemic keratoconjunc tivitis of both eyesCorneal opacity of both eyes 1 Juan Jose Johnson. [address] [employer], [facility], [place], [place], [id number], [place]. tel:[phone] Specialist: Ann Serrano MD, [address] [place], [address]. tel:[phone] ring Provider: Kishor Saleh MD, [address] [facility] [address], [place], [address]. tel:[phone] Family History Family Member Type Diagnosis Age At Onset Problem Family history of Diabetes m an[place] Payers Payer name Insurance type Covered alliance party ID Boby altman(s) R CI [id number] Social History Type Description Quantity Date Captured [...] II x 6 yrs, followed by Dr. Serrnao, pt reports she hasn't checked BS lately [...]
--- OUTSIDE RECORDS SUMMARY | 2024-12-14 20:56 | XMS_ITS | Encounter Summary ---
Author Organization [facility] Health Address [address] [facility] [place] [address] Care Team Providers Care Rivet Catcher Name Role Phone Tiffany Cox MD Primary Care Provider Unavailable Kishor Saleh MD Primary Care Provider [phone] Encounter Details Date Type Department Care Team (Late st Contact Info) Description 07/03/2023 Lab Requisition [facility] [address] [place] [id number] [place] [address] [facility] [address] [place] [address] Social History Tobacco Use Types Packs/Day Years Used Date Smoking Tobacco: Never Assessed Comments Unknown Sex and Gender Information Value Date Recorded Sex Assigned at Not on file Legal Sex Female 4:50 AM INSURANCE INSTRUCTOR Gender Identity Not on file Sexual Orientation Not on file documented as of this encounter Plan of Treatment Not on file documented as of this encounter Visit Diagnoses Not on filedocumented in this encounter Additional Health Concerns Infection Onset Date Last Indicated Resolved Time COVID-19 Under Investigation 08/13/2024 08/13/2024 08/13/2024 11:30 PM INSURANCE INSTRUCTOR documented as of this encounter Care Teams Rivet Catcher Relationship Specialty Start Date End Date Tiffany Cox MD PCP - General Internal Medicine 05/16/13 07/30/23 Kishor Saleh MD [address] [place] [address] DR S[place] [place] [address] PCP - General Internal Medicine 07/31/23 documented as of this encounter
--- OUTSIDE RECORDS SUMMARY | 2024-12-14 20:56 | XMS_ITS | Encounter Summary ---
Author Organization [facility] Health Address [address] [facility] [place] [address] Care Team Providers Care Harvester Operator Name Role Phone Tiffany Cox MD Primary Care Provider Unavailable Kishor Saleh MD Primary Care Provider Encounter Details Date Type Department Care Team (Late st Contact Info) Description 07/03/2023 Lab Requisition [facility] [address] [place] [phone] [place] [address] [facility] [address] [place] [address] Social History Tobacco Use Types Packs/Day Years Used Date Smoking Tobacco: Never Assessed Comments Unknown Sex and Gender Information Value Date Recorded Sex Assigned at Not on file Legal Sex Female 4:50 AM ACTUARIAL ASSISTANT Gender Identity Not on file Sexual Orientation Not on file documented as of this encounter Plan of Treatment Not on file documented as of this encounter Visit Diagnoses Not on filedocumented in this encounter Additional Health Concerns Infection Onset Date Last Indicated Resolved Time COVID-19 Under Investigation 08/13/2024 08/13/2024 08/13/2024 11:30 PM ACTUARIAL ASSISTANT documented as of this encounter Care Teams Harvester Operator Relationship Specialty Start Date End Date Tiffany Cox MD PCP - General Internal Medicine 05/16/13 07/30/23 Kishor Saleh MD [address] [place] [address] DR [address] [place] [address] PCP - General Internal Medicine 07/31/23 documented as of this encounter
--- OUTSIDE RECORDS SUMMARY | 2024-12-14 20:56 | XMS_ITS | Referral Summary ---
Author Organization [facility] Medical Office Building A Address [address] [place] [address] Care Team Providers Care Casualty Insurance Claim Adjuster Name Role Phone Ann Serrano MD Unavailable [phone] Lynn Rodriguez MD Primary Care Provider Encounters Date Type Department Care Team Description 12/13/2024 2:30 PM CDT Office Visit [facility] Pulmonary at [address] [place] [phone] Josiah Doan DO 11/30/2024 3:30 PM CDT Office Visit [facility] Con[facility] Care at [address] [phone] Minnie House NP Acute non-recurrent frontal sinusitis (Primary Dx) 11/09/2024 Results Follow-Up [facility] Pulmonary at [address] [phone] Josiah Doan, Chronic respiratory failure with hypoxia (HCC) (Primary Dx); Hypoxia 11/09/2024 7:18 AM CDT - 11/09/2024 11:59 PM CDT Hospital Encounter [facility] Respiratory [address] [place] [address] Severe persistent asthma without complication (HCC) Discharge Disposition: Discharge to home or self care 11/07/2024 Results Follow-Up [facility] at [address] [phone] Karley Rubi NP 11/07/2024 2:30 PM CDT Ancillary Procedure [facility] at [address] [phone] Wheezing 11/07/2024 2:00 PM CDT Office Visit [facility] at [address] [phone] Karley Rubi NP Sore throat (Primary Dx); Wheezing; History of asthma 11/01/2024 1:00 PM CDT Office Visit [facility] Pul[facility] at [address] [place] [address] Josiah Doan DO Severe persistent asthma without complication (HCC) (Primary Dx); Obstructive sleep apnea; Immunosuppression due to drug therapy; Class 3 severe obesity due to excess calories with serious comorbidity and body mass index (BMI) of 45.0 to 49.9 in adult 10/25/2024 Telephone [facility] Endocrinology Metabolism and Lipid [address] [facility] 5th [place] [address] [place] [address] Leisa Arenas, RN eye exam 10/25/2024 Orders Only [facility]ocrinology Metabolism and Lipid [address] [facility] 13th [place] [address] [place] [address] Stephenie Cruz MD 10/12/2024 9:00 AM CDT Telemedicine [facility] Endocrinology Metabolism and Lipid [address] [facility] 13th [place] [address] [place] [address] Shirley Teixeira PA Uncontrolled type 2 diabetes mellitus with hyperglycemia (HCC) (Primary Dx); Mixed hyperlipidemia; Class 3 severe obesity due to excess calories with serious comorbidity and body mass index (BMI) of 45.0 to 49.9 in adult (HCC); custodial (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); custodial 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 user 10/07/2024 Ancillary Procedure [facility] [...] 400 each 3 024 Active blood-glucose sensor ([employer] G7 Sensor) deviceIndication s:Uncontrolled type 2 diabetes mellitus with hyperglycemia (HCC),medical terminologist (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) Use for [...] NEBULIZER EVERY 6 HOURS NEEDED FOR WHEEZING (LAWYERS RECOMMENDS NOT EXCEEDING 4 VIALS/DAY) 150 mL [...] 08/13/2024 Assessment & Plan (08/26/2024 6:09 PM RAISE MINER): Recent hospitalization likely for CAP followed by RSV Symptoms resolved Impaired mobility 07/29/2024 medical terminologist (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 07/13/2024 medical terminologist 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 user 07/13/2024 Assessment & Plan (07/13/2024 12:22 PM RAISE MINER): - Further complicates diabetes management Need for vaccination 04/06/2024 Assessment & Plan (04/06/2024 4:14 PM CDT): Received pneumonia vaccine today history of pneumonia currently no complaints last bout in 08/2023 Head trauma 09/04/2022 Assessment & Plan (09/04/2022 2:35 PM RAISE MINER): No signs of neurological abnormality on examination [...] booster Assessment & Plan (06/24/2021 3:28 PM RAISE MINER): Pito vaccine 10/05/2020 and Moderna booster Jun 2021 Major depressive disorder 04/22/2021 Assessment & Plan (01/06/2024 9:09 AM CDT): Stable on current medication regimen. Assessment & Plan (01/17/2022 10:21 AM CDT): Stable on current medication regimen. Assessment & Plan (07/17/2021 2:07 PM RAISE MINER): Better controlled on venlafaxine. Assessment & Plan (04/22/2021 8:25 AM CDT): Restart venlafaxine and warned of side effects and call back if any develop or if no improvement. Type 2 diabetes mellitus with hyperlipidemia 06/2020 Assessment & Plan (01/06/2024 9:09 AM CDT): A1c above goal. Will start Mounjaro soon. Continue other medications as directed by her commercial loan specialist. Diet exercise discussed. Hopefully may be able to wean prednisone in the near future as well. Assessment & Plan (06/15/2023 10:48 AM RAISE MINER): She knows that the steroids will exacerbate her hyperglycemia and should be in contact with her commercial loan specialist for management. Assessment & Plan (06/08/2023 5:26 PM RAISE MINER): Poor control of her diabetes prior to this hospitalization and even worse now on prednisone. Follow-up with her commercial loan specialist for management. Diet exercise weight loss recommended. Assessment & Plan (01/21/2023 9:50 AM CDT): Blood sugars remain above goal. Hopefully the recent addition of mounjaro will help significantly. Discuss up titration of this and her mealtime insulin with her commercial loan specialist. Diet exercise discussed. Check A1c and fasting blood sugar before next visit. Assessment & Plan (08/02/2022 12:16 PM RAISE MINER): A1c poorly controlled. Importance of diet exercise weight loss discussed at length. Continue her Ozempic and insulin and needs to contact her commercial loan specialist soon as possible for guidance on further therapy. Assessment & Plan (01/17/2022 10:22 AM CDT): Patient aware A1c grossly uncontrolled. Must work on diet exercise and weight loss. She has to get back on her insulin and should discuss this today with her commercial loan specialist. Risks posed her health with poor glycemic control discussed. Assessment & Plan (07/13/2020 8:34 AM RAISE MINER): A1c above goal. Importance of diet exercise weight loss discussed. Continue current medication regimen and follow-up with her commercial loan specialist as they direct. 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 Unfortunately lab work and skin biopsy inconclusive. Discussed possible rheumatology 2nd opinion here at [facility] and patient will call back if desired. Assessment & Plan (06/15/2023 10:48 AM RAISE MINER): Certainly making a case for underlying vasculitis [...] condition. Assessment & Plan (06/20/2020 9:35 AM RAISE MINER): Unclear etiology but I am thinking of [...] tolerated Assessment & Plan (08/26/2024 6:10 PM RAISE MINER): Body mass index is 49.1 kg/m . BMI Follow-up includes: nutrition counseling, exercise counseling, and education provided. Assessment & Plan (07/13/2024 12:20 PM RAISE MINER): - Increase Mounjaro to 10 mg weekly [...] tolerated. Assessment & Plan (06/08/2023 5:23 PM RAISE MINER): Patient is encouraged to lose weight with a combination of caloric reduction and increased exercise. Various strategies discussed. The long-term risks associated with continued morbid obesity discussed. Assessment & Plan (09/04/2022 2:34 PM RAISE MINER): Patient is encouraged to lose weight with a combination of caloric reduction and increased exercise. Various strategies discussed. The long-term risks associated with continued morbid obesity discussed. Assessment & Plan (08/02/2022 12:16 PM RAISE MINER): Patient is encouraged to lose weight with [...] discussed. Assessment & Plan (07/13/2020 8:34 AM RAISE MINER): Patient is encouraged to lose weight with a combination of caloric reduction and increased exercise. Various strategies discussed. The long-term risks associated with continued morbid obesity discussed. Assessment & Plan (06/20/2020 9:35 AM RAISE MINER): Patient is encouraged to lose weight with a combination of caloric reduction and increased exercise. Various strategies discussed. The long-term risks associated with continued morbid obesity discussed. Assessment & Plan (07/08/2019 8:44 AM RAISE MINER): Patient is encouraged to lose weight with a combination of caloric reduction and increased exercise. Various strategies discussed. The long-term risks associated with continued morbid obesity discussed. Irregular menses 06/03/2019 Allergic rhinitis 07/05/2018 Assessment & Plan (02/23/2023 1:30 PM CDT): Nasal saline spray (Simply saline, Little Remedies, Novelty, Newell) 2 second sprays or 2 squeezes into [...] daily Assessment & Plan (07/17/2021 2:07 PM RAISE MINER): Claritin montelukast. Assessment & Plan (04/22/2021 8:25 AM CDT): Currently using Claritin and montelukast. She has not been trying Flonase as her nose is being to congested. Recommended sinus rinses her using a hot warm shower. Could also try Afrin for few days. Assessment & Plan (07/08/2019 8:43 AM RAISE MINER): Add montelukast to her Claritin. She struggles with nasal sprays due to chronic congestion. Assessment & Plan (07/05/2018 9:24 AM RAISE MINER): Try Afrin for 3 days along with [...] mg/dL Assessment & Plan (07/13/2024 12:21 PM RAISE MINER): - Last LDL 103, TG 308, TC [...] triglycerides. Assessment & Plan (09/12/2023 8:12 PM RAISE MINER): Continue statin and optimize glycemic control Assessment & Plan (02/16/2023 8:14 PM CDT): Continue statin and optimize glycemic control Assessment & Plan (01/21/2023 9:50 AM CDT): Continue her atorvastatin and work on diet exercise and check lipids and LFTs before next visit. Assessment & Plan (08/02/2022 12:15 PM RAISE MINER): Well controlled on current therapy and will check a lipid panel and LFTs in 6 months. Assessment & Plan (01/17/2022 10:21 AM CDT): Well controlled on current therapy and will check a lipid panel and LFTs in 6 months. Assessment & Plan (07/17/2021 2:06 PM RAISE MINER): Well controlled on current therapy and will check a lipid panel and LFTs in 6 months. Assessment & Plan (06/24/2021 3:28 PM RAISE MINER): Continue statin and optimize glycemic control Assessment & Plan (12/19/2020 7:53 AM CDT): Continue statin and optimize glycemic control Assessment & Plan (07/13/2020 8:34 AM RAISE MINER): Well controlled on current therapy and will check a lipid panel and LFTs in 6 months. Assessment & Plan (06/08/2020 8:31 AM RAISE MINER): LDL within goal. Continue statin and optimize glycemic control Assessment & Plan (07/08/2019 8:42 AM RAISE MINER): Well controlled on current therapy and will check a lipid panel and LFTs in 12 months. Assessment & Plan (09/01/2018 2:22 PM RAISE MINER): Continue statin, optimize glycemic control Assessment & Plan (07/05/2018 9:23 AM RAISE MINER): Well controlled on current therapy and will check a lipid panel and LFTs in 6 months. Assessment & Plan (08/26/2017 4:27 PM RAISE MINER): Start atorvastatin and check lipids and LFTs in 3-4 months. Call back for results. Vitamin D deficiency 07/02/2017 Assessment & Plan (07/13/2024 12:22 PM RAISE MINER): - Last Vitamin D 42 (12/2023), replete [...] week Assessment & Plan (09/12/2023 8:12 PM RAISE MINER): Continue long-term supplement Assessment & Plan (02/16/2023 8:14 PM CDT): Continue long-term supplement Assessment & Plan (08/02/2022 12:15 PM RAISE MINER): Continue current supplementation and check level in 1 year. Assessment & Plan (07/17/2021 2:06 PM RAISE MINER): Continue current supplementation and check level in 1 year. Assessment & Plan (06/24/2021 3:29 PM RAISE MINER): Continue long-term supplement Assessment & Plan (12/19/2020 7:53 AM CDT): Continue long-term supplement Assessment & Plan (07/13/2020 8:33 AM RAISE MINER): Continue current supplementation and check level in 1 year. Assessment & Plan (06/08/2020 8:31 AM RAISE MINER): Vitamin-D level within goal, continue chronic supplement Assessment & Plan (07/08/2019 8:42 AM RAISE MINER): Continue current supplementation and check level in 1 year. Assessment & Plan (06/03/2019 8:24 AM CDT): Recently ran out of supplement, so we will restart and check her level today. Also check B12 Assessment & Plan (09/01/2018 2:22 PM RAISE MINER): Continue supplement Assessment & Plan (07/05/2018 9:23 AM RAISE MINER): Continue current supplementation and check level in 1 year. Assessment & Plan (08/26/2017 4:26 PM RAISE MINER): Continue current supplementation and check level in [...] Component Value Date HGBA1C 11.7 07/13/2024 Per [place] [employer], goal A1c is less 7% without significant hypoglycemia. - Management Goal: A1c <7.0% - Increase Mounjaro to 12.5 mg once a week - Continue Lantus 45 units twice daily - Lyumjev 16 units with breakfast and lunch, 18 units with dinner 1:25 > 150 mg/dL - She is going to re-start [employer] G7 CGM. Given instructions on how to [...] etc. Assessment & Plan (08/26/2024 6:10 PM RAISE MINER): Assessment & Plan (07/13/2024 12:20 PM RAISE MINER): - Diabetes is complicated by hyperlipidemia, hypertension, morbid obesity and chronic steroid use. Uncontrolled. Lab Results Component Value Date HGBA1C 11.7 07/13/2024 Per [place] [employer], goal A1c is less 7% [...] in prescriptions for both Dexcom G7 and [employer] Silva 3 CGM for olivares checking. Also [...] Return visit 3 months to see the AUTO CRANE DRIVER/PA, 6 months to see me. Assessment [...] Component Value Date HGBA1C 12.5 11/17/2023 Per [place] [employer], goal A1c is less 7% [...] that I am available via phone or [employer] if they have any concerns for hypo/hyperglycemia, medication refills, etc. Assessment & Plan (11/18/2023 8:23 AM CDT): - Diabetes is complicated by HTN, HLD, steroid use, hyperglycemia and obesity. Uncontrolled. Lab Results Component Value Date HGBA1C 12.5 11/17/2023 Per [place] [employer], goal A1c is less 7% without significant hypoglycemia. - Management Goal: re-start and adherence to medication regimen - Continue current medication regimen at this time. - Patient called local pharmacy to confirm that they do have prescriptions for her Semglee. She is going to tile picker today after this visit. - Insurance [...] etc. Assessment & Plan (09/12/2023 8:13 PM RAISE MINER): Very high glucoses; multifactorial including steroid therapy, [...] daily. Assessment & Plan (06/24/2021 3:29 PM RAISE MINER): Much improved but needs a little more basal insulin. Assessment & Plan (12/19/2020 7:53 AM CDT): Multiple medications, but now requires insulin. We can gradually adjust her Lantus based on her clinical response. Assessment & Plan (06/08/2020 8:32 AM RAISE MINER): Glucoses somewhat better now that she is [...] motivator. Assessment & Plan (07/08/2019 8:43 AM RAISE MINER): Continue increased dose of Ozempic and also continue Invokana. Importance of dietary changes increase exercise weight loss discussed. Follow-up with her commercial loan specialist as they direct. Assessment & Plan (06/03/2019 8:25 AM CDT): Somewhat suboptimal, would benefit from increasing Ozempic and continuing efforts with diet and lifestyle. Needs follow-up labs Assessment & Plan (09/01/2018 2:22 PM RAISE MINER): Glucoses a little high, but she has bruising with Victoza so she may benefit by changing to weekly Ozempic, which is a little stronger, as well. Jardiance is been ineffective, so we may need to provide preauthorization for Invokana Assessment & Plan (07/05/2018 9:23 AM RAISE MINER): A1c above goal. We stressed importance of increased exercise, reduce calories, weight loss. Could consider switching Victoza to ozempic. Otherwise does not tolerate metformin or sulfonylureas. May need insulin soon. She is directed to follow up with her commercial loan specialist more quickly than her next scheduled appointment in November. Assessment & Plan (08/26/2017 4:26 PM RAISE MINER): Continue current medication regimen and follow up with her commercial loan specialist as they direct. Low carb diet weight loss recommended. Check blood sugars once daily. Start atorvastatin and check lipids and LFTs in 3-4 months. Anxiety state 12/17/2013 Overview (11/07/2016): ANXIETY STATE NOS Benign hypertension 12/17/2013 Overview (11/07/2016):Formatting of this note might be different [id number]|2024-12-14 20:29:00|2024-12-14 20:28:00|XMS_ITS|BKG DAEMON|External Medical Summaries|[id number]|" Encounter Summary Created on: December 14, 2024 Camila Huitron : 1975 Sex: Female Author Organization [facility] Healthcare Address [address] [place] [id number] Care Team Providers Care Casualty Insurance Claim Adjuster Name Role Phone Ann Serrano MD Unavailable [phone] Lynn Rodriguez MD Primary Care Provider Encounter Details Date Type Department Care Team (Late st Contact Info) Description 11/07/2024 Results Follow-Up [facility] at [address] [phone] Karley Rubi NP [address] [place] [address] [address] [place] [address] Social History Tobacco Use Types [...] on file Legal Sex Female 11:54 PM RAISE MINER Gender Identity Female 09/19/2020 8:37 AM RAISE MINER Sexual Orientation Straight 09/19/2020 8: 37 AM RAISE MINER documented as of this encounter Plan of Treatment Not on file documented as of this encounter Visit Diagnoses Not on filedocumented in this encounter Additional Health Concerns Infection Onset Date Last Indicated Resolved Time COVID: Suspected 11/07/2024 11/07/2024 11/07/2024 2:20 PM CDT documented as of this encounter Care Teams Casualty Insurance Claim Adjuster Relationship Specialty [place] [id number] [address] PCP - General Internal Medicine 04/06/24 Ann Serrano MD Referring Physician Endocrinology Diabetes & Metabolism 06/08/20 documented as of this encounter "
[2024-12-14 21:44] LABS: BEDSIDEPREGUCG Negative (Negative)
[2024-12-14] MEDS: ONDANSETRON INJ 4 MG/2 ML VIAL IV PUSH (21:46)
[2024-12-14] MEDS: HYDROmorphone HCL INJ (*CRX) 2 MG/ML VIAL 0.5 MG IV PUSH (21:47)
[2024-12-14 21:48] LABS: Basophils Absolute Auto 0.1 K/mm3 (0.0-0.1); Basophils Percent Auto 0.5 % (0.2-1.2); Eosinophils Absolute Auto 0.1 K/mm3 (0-0.3); Eosinophils Percent Auto 0.7 % (0-4.4); Hematocrit 40.2 % (37.0-47.0); Hemoglobin 12.5 g/dL (12.0-15.0); Immature Granulocyte Absolute 0.25 K/mm3 (0.00-0.031); Immature Granulocyte Percent A 1.6 % (0-0.5); Lymphocytes Absolute Auto 1.73 K/mm3 (0.9-3.2); Lymphocytes Percent Auto 11.3 % (18.3-44.2); Mean Corpuscular HGB Conc 31.1 g/dl (32-36); Mean Corpuscular Hemoglobin 28.7 pg (26-34); Mean Corpuscular Volume 92.4 fl (80-100); Mean Platelet Volume 10.5 fl (7.4-10.4); Monocytes Absolute Auto 1.4 K/mm3 (0.1-0.6); Monocytes Percent Auto 9.1 % (2.6-8.5); Neutrophils Absolute Auto 11.7 K/mm3 (1.3-6.7); Neutrophils Percent Auto 76.8 % (45.5-73.1); Platelet Count Result 349 k/mm3 (150-375); Red Blood Count 4.35 M/mm3 (4.2-5.4); Red Cell Distribution Width 17.2 % (11.5-14.5); White Blood Count 15.3 K/mm3 (4.5-10.0)
[2024-12-14] MEDS: FAMOTIDINE 20 MG/2 ML VIAL IV PUSH (21:49)
[2024-12-14] MEDS: SODIUM CHLORIDE 0.9% IV 2,000 ML 999 ML IV CONT (21:50)
[2024-12-14 21:53] LABS: Add Urine Microscopic? YES; Appearance Urine Cloudy (Clear); Bacteria Urine None Seen /hpf; Bilirubin Urine Negative (Negative); Blood Urine Negative (Negative); Color Urine Yellow (Yellow); Glucose Urine UA Negative (Negative); Ketones Urine Negative (Negative); Leukocyte Esterase Ur Negative LEU/UL (Negative); Nitrate Urine Negative (Negative); Non Pathogenic Casts 0-2; Protein Urine Negative (Negative); RBC Urine 0-2 /hpf (0-2); Specific Grav Ur 1.008 (1.001-1.035); Squamous Epithelial Cell Urine None Seen /hpf (Few); Urobilinogen Urine 0.2 mg/dL (<2.0); WBC Urine 0-5 /hpf (0-3)
[2024-12-14 22:00] LABS: INR 0.9; Partial Thromboplastin Time 22.9 Seconds (22.3-36.8); Prothrombin Time 12.3 Seconds (11.1-14.7)
[2024-12-14 22:03] LABS: Alanine Aminotransferase 58 U/L (6-35); Alkaline Phosphatase 49 U/L (38-126); Anion Gap 9 mmol/L (4-12); Aspartate Amino Transferase 35 U/L (14-36); Bilirubin,Total 0.9 mg/dL (0.2-1.3); Blood Urea Nitrogen 16 mg/dL (7-17); Calcium 8.8 mg/dL (8.4-10.2); Carbon Dioxide 26 mmol/L (22-30); Chloride 102 mmol/L (98-107); Estimated Glomerular Filt Rate > 60; Glucose 107 mg/dL (65-110); Lipase 155 U/L (23-300); Sodium 137 mmol/L (137-145)
--- NOTE | 2024-12-14 22:04 | ED.GENADULT ---
HPI - General Adult General Chief complaint: Nausea/Vomiting/Diarrhea Stated complaint: stomach cramps bloody stools Time Seen by Provider: 12/14/24 20:48 History of Present Illness HPI narrative: 49-year-old female patient with a history of insulin-dependent type 2 diabetes, hypertension, obstructive sleep apnea, elevated cholesterol, vasculitis and autoimmune disorder presenting for nausea vomiting abdominal pain bloody diarrhea x 1 day. . Symptoms started 430am on 12/13. Patient has pain that is worse in the left lower quadrant is crampy and comes and goes. Her diarrhea has had blood mixed into the stool as well as blood on the toilet paper when wiping. She has had chills but no fevers. No chest pain difficulty breathing or urinary symptoms. 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 Related Data Home Medications Medication Instructions Recorded Confirmed Last Taken Type atorvastatin 20 mg tablet 20 mg PO HS 10/15/20 10/03/24 05/24/23 History loratadine 10 mg tablet (Claritin) 10 mg PO DAILY 10/15/20 10/03/24 05/24/23 History montelukast 10 mg tablet 10 mg PO HS 10/15/20 10/03/24 Unknown History insulin lispro-aabc 100 unit/mL 1 sliding scale dose subcut AC 05/25/23 10/03/24 05/24/23 History subcutaneous pen (Lyumjev KwikPen U-100 Insulin) tirzepatide 5 mg/0.5 mL 10 mg subcut WEEKLY 05/25/23 10/03/24 07/28/24 History subcutaneous pen injector (Mounjaro) venlafaxine 150 mg 150 mg PO QPM 05/25/23 10/03/24 05/24/23 History capsule,extended release 24 hr albuterol sulfate 2.5 mg/3 mL 2.5 mg inhalation DAILY PRN 08/10/23 10/03/24 Unknown History (0.083 %) solution for nebulization Shortness Of Breath cetirizine 10 mg tablet (All Day 10 mg PO DAILY 08/10/23 10/03/24 07/30/24 History Allergy (cetirizine)) ergocalciferol (vitamin D2) 50,000 unit PO .COMPLEX 08/10/23 10/03/24 07/27/24 History fluticasone propionate 50 1 spray intranasal DAILY PRN 08/10/23 10/03/24 Unknown History mcg/actuation nasal allergy symptoms spray,suspension prednisone 20 mg tablet 40 mg PO DAILY@0800 08/10/23 10/03/24 Unknown History cyclobenzaprine 10 mg tablet 10 mg PO HS 07/31/24 12/08/24 12/07/24 History diclofenac sodium 75 mg 75 mg PO BID 07/31/24 10/03/24 Unknown History tablet,delayed release folic acid 1 mg tablet 1 mg PO DAILY 07/31/24 10/03/24 Unknown History gabapentin 300 mg capsule 300 mg PO TID 07/31/24 10/03/24 Unknown History hydroxychloroquine 200 mg tablet 400 mg PO HS 07/31/24 10/03/24 Unknown History insulin glargine 100 unit/mL (3 45 unit subcut BID 07/31/24 10/03/24 07/30/24 History mL) subcutaneous pen (Lantus Solostar U-100 Insulin) lisinopril 20 mg tablet 20 mg PO DAILY 07/31/24 10/03/24 Unknown History methotrexate sodium 2.5 mg tablet 12.5 mg PO WEEKLY 07/31/24 10/03/24 07/28/24 History pantoprazole 40 mg tablet,delayed 40 mg PO DAILY 07/31/24 10/03/24 Unknown History release acetaminophen 500 mg tablet 1,000 mg PO BID 09/23/24 10/03/24 Unknown History famotidine 20 mg tablet (Acid 20 mg PO HS 09/23/24 10/03/24 Unknown History Controller) magnesium 200 mg tablet 400 mg PO DAILY 09/23/24 10/03/24 Unknown History magnesium salicylate 162.5 1 tablet PO DAILY 09/23/24 10/03/24 Unknown History mg-caffeine 50 mg tablet (Diurex) potassium 99 mg tablet 99 mg PO HS 09/23/24 10/03/24 Unknown History albuterol sulfate 90 mcg/actuation 2 puff inhalation Q8H PRN 10/03/24 10/03/24 Unknown History aerosol inhaler shortness of breath or wheezing Allergies Allergy/AdvReac Type Severity Reaction Status Date / Time amoxicillin AdvReac Unknown Nausea and Verified 12/08/24 17:46 Vomiting glipizide AdvReac Unknown NAUSEA AND Verified 12/08/24 17:46 VOMITING hydrocodone AdvReac Unknown Nausea and Verified 12/08/24 17:46 Vomiting metformin AdvReac Unknown Nausea and Verified 12/08/24 17:46 Vomiting PMFSH Past Medical History Medical History Vasculitis Depression JEREMY on CPAP Hypertension Hypercholesterolemia Diabetes Surgical History Surgical History H/O arthroscopy H/O myomectomy Family History Family History Mother Diabetes mellitus Myocardial infarction Uterine cancer Father Cancer of blood vessel Sibling Diabetes mellitus Social History Social History Smoking status: Never smoker Alcohol intake: never Drinks per week: 1 Substance use: never Substance use type: does not use Do You Feel Safe in your Home?: Yes Lack of Transportation: No Lack of Food: Never True Current Housing: I Have Housing Concerned About Future Housing: No Difficulty Paying Gas/Electric Bills: No Difficulty Paying for Meds: No Currently Unemployed: No Education: High School Diploma/GED Difficulty w/ Childcare or Family Care: No Spiritual care concerns: No Exam Narrative: APPEARANCE: Morbidly obese, clearly in pain Head: atraumatic. EYES: EOMI, NOSE: Atraumatic NECK: Trachea midline RESPIRATORY: No increased rate of breathing CTAB CARDIOVASCULAR: RRR, no peripheral edema ABDOMINAL: Obese, tenderness in the left lower quadrant without guarding or rebound physical exam limited by body habitus Rectal exam: Reddish brown stool in the vault, Hemoccult positive, no external hemorrhoids MUSCULOSKELETAl: No obvious deformities NEURO: Alert. Moving 4/4 extremities SKIN:: Warm dry PSYCHIATRIC: Normal affect Course Vital Signs Vital signs: Vital Signs Temperature 98.7 F 12/14/24 20:35 Pulse Rate 114 H 12/14/24 20:35 Respiratory Rate 18 12/14/24 20:35 Pulse Oximetry 100 12/14/24 20:35 Oxygen Delivery Room Air 12/14/24 20:35 Temperature 98.7 F 12/14/24 20:35 Pulse Rate 107 H 12/14/24 20:48 Respiratory Rate 20 12/14/24 20:48 Blood Pressure 153/82 H 12/14/24 20:48 Pulse Oximetry 100 12/14/24 20:48 Oxygen Delivery Room Air 12/14/24 20:35 Medical Decision Making MDM Narrative Medical decision making narrative: -Course: 49-year-old female with multiple medical comorbidities on chronic steroids presenting with nausea vomiting and bloody diarrhea. Tenderness in left lower quadrant. She has brownish red stool in the rectal vault that is Hemoccult positive. She is given 2 L of normal saline, antiemetics, pain medication. Workup significant for white 15. Unclear if due to chronic steroid use versus infection. Hemoglobin 12.5. BUN and creatinine baseline. Urine infection. Viral swabs negative. CT abdomen pelvis showed inflammation of the transverse colon, infectious versus inflammatory. Ischemic less likely. Lactic still pending. After fluid resuscitation patient is still tachycardic at 110s. She will be started on ceftriaxone and Flagyl to cover infectious colitis. Started on lactated Ringer maintenance fluids. Stress dose steroids were discussed with the hospitalist but we'll hold off for GI input. Patient be admitted hospital for further management. DDX includes but is not limited to: Gastroenteritis, infectious versus inflammatory colitis, vasculitis, viral syndrome Independent EKG interpretation: Rhythm [sinus], Rate [108], [place] -[normal], [place] -[normal], QRS [narrow], QTC [normal], T waves -[negative for concerning inversions], ST Segments - [Negative for concerning elevations] Final interpretations: Sinus tachycardia Vital Signs Vital Signs: Vital Signs Temperature 98.7 F 12/14/24 20:35 Pulse Rate 114 H 12/14/24 20:35 Respiratory Rate 18 12/14/24 20:35 Pulse Oximetry 100 12/14/24 20:35 Oxygen Delivery Room Air 12/14/24 20:35 Temperature 98.7 F 12/14/24 20:35 Pulse Rate 107 H 12/14/24 20:48 Respiratory Rate 20 12/14/24 20:48 Blood Pressure 153/82 H 12/14/24 20:48 Pulse Oximetry 100 12/14/24 20:48 Oxygen Delivery Room Air 12/14/24 20:35 Lab Data 12/14/24 21:35 12/14/24 21:34 Labs: Lab Results 0512/14/24 12/14/24 Range/Units 21:34 21:35 21:40 WBC 15.3 H (4.5-10.0) K/mm3 RBC 4.35 (4.2-5.4) M/mm3 Hgb 12.5 (12.0-15.0) g/dL Hct 40.2 (37.0-47.0) % MCV 92.4 (80-100) fl MCH 28.7 (26-34) pg MCHC 31.1 L (32-36) g/dl RDW 17.2 H (11.5-14.5) % Plt Count 349 (150-375) k/mm3 MPV 10.5 H (7.4-10.4) fl Immature Gran % (Auto) 1.6 H (0-0.5) % Neut % (Auto) 76.8 H (45.5-73.1) % Lymph % (Auto) 11.3 L (18.3-44.2) % [place] % (Auto) 9.1 H (2.6-8.5) % Eos % (Auto) 0.7 (0-4.4) % Baso % (Auto) 0.5 (0.2-1.2) % Lymph # (Auto) 1.73 (0.9-3.2) K/mm3 [place] # (Auto) 1.4 H (0.1-0.6) K/mm3 Eos # (Auto) 0.1 (0-0.3) K/mm3 Baso # (Auto) 0.1 (0.0-0.1) K/mm3 Abs Immat Gran (auto) 0.25 H (0.00-0.031) K/mm3 Absolute Neuts (auto) 11.7 H (1.3-6.7) K/mm3 Absolute Nucleated RBC 0.000 (0.0-0.012) K/mm3 Nucleated RBC % 0.0 (0.0-0.2) % PT 12.3 (11.1-14.7) Seconds INR 0.9 APTT 22.9 (22.3-36.8) Seconds Sodium 137 (137-145) mmol/L Potassium 4.0 (3.4-5.0) mmol/L Chloride 102 (98-107) mmol/L Carbon Dioxide 26 (22-30) mmol/L Anion Gap 9 (4-12) mmol/L BUN 16 (7-17) mg/dL Creatinine 0.59 L (0.7-1.0) mg/dL Estim Creat Clear Calc Not Reportable Estimated GFR > 60 (59 - ) Glucose 107 (65-110) mg/dL Calcium 8.8 (8.4-10.2) mg/dL Total Bilirubin 0.9 (0.2-1.3) mg/dL AST 35 (14-36) U/L ALT 58 H (6-35) U/L Alkaline Phosphatase 49 (38-126) U/L Total Protein 7.0 (6.3-8.2) g/dL Albumin 4.0 (3.5-5.1) g/dL Lipase 155 (23-300) U/L Urine Color Yellow (Yellow) Urine Appearance Cloudy H (Clear) Urine pH 7.0 (5.0-9.0) Ur Specific [place] 1.008 (1.001-1.035) Urine Protein Negative (Negative) mg/dL Urine Glucose (UA) Negative (Negative) mg/dL Urine Ketones Negative (Negative) mg/dL Ur Blood (Man) Negative (Negative) Urine Nitrate Negative (Negative) Urine Bilirubin Negative (Negative) Urine Urobilinogen 0.2 (<2.0) mg/dL Leukocyte Esterase Rfl Negative (Negative) JAYDEN/UL Urine RBC 0-2 (0-2) /hpf Urine WBC 0-5 (0-3) /hpf Ur Squamous Epith Cells None seen (Few) /hpf Urine Bacteria None seen /hpf Urine Casts 0-2 POC Urine HCG, Qual (Negative) Influenza A (RT-PCR) Pending Influenza B (RT-PCR) Pending RSV (RT-PCR) Pending SARS-CoV-2 RNA (RT-PCR) Pending Blood Type Pending Antibody Screen Pending 12/14/24 Range/Units 21:43 WBC (4.5-10.0) K/mm3 RBC (4.2-5.4) M/mm3 Hgb (12.0-15.0) g/dL Hct (37.0-47.0) % MCV (80-100) fl MCH (26-34) pg MCHC (32-36) g/dl RDW (11.5-14.5) % Plt Count (150-375) k/mm3 MPV (7.4-10.4) fl Immature Gran % (Auto) (0-0.5) % Neut % (Auto) (45.5-73.1) % Lymph % (Auto) (18.3-44.2) % [place] % (Auto) (2.6-8.5) % Eos % (Auto) (0-4.4) % Baso % (Auto) (0.2-1.2) % Lymph # (Auto) (0.9-3.2) K/mm3 [place] # (Auto) (0.1-0.6) K/mm3 Eos # (Auto) (0-0.3) K/mm3 Baso # (Auto) (0.0-0.1) K/mm3 Abs Immat Gran (auto) (0.00-0.031) K/mm3 Absolute Neuts (auto) (1.3-6.7) K/mm3 Absolute Nucleated RBC (0.0-0.012) K/mm3 Nucleated RBC % (0.0-0.2) % PT (11.1-14.7) Seconds INR APTT (22.3-36.8) Seconds Sodium (137-145) mmol/L Potassium (3.4-5.0) mmol/L Chloride (98-107) mmol/L Carbon Dioxide (22-30) mmol/L Anion Gap (4-12) mmol/L BUN (7-17) mg/dL Creatinine (0.7-1.0) mg/dL Estim Creat Clear Calc Estimated GFR (59 - ) Glucose (65-110) mg/dL Calcium (8.4-10.2) mg/dL Total Bilirubin (0.2-1.3) mg/dL AST (14-36) U/L ALT (6-35) U/L Alkaline Phosphatase (38-126) U/L Total Protein (6.3-8.2) g/dL Albumin (3.5-5.1) g/dL Lipase (23-300) U/L Urine Color (Yellow) Urine Appearance (Clear) Urine pH (5.0-9.0) Ur Specific [place] (1.001-1.035) Urine Protein (Negative) mg/dL Urine Glucose (UA) (Negative) mg/dL Urine Ketones (Negative) mg/dL Ur Blood (Man) (Negative) Urine Nitrate (Negative) Urine Bilirubin (Negative) Urine Urobilinogen (<2.0) mg/dL Leukocyte Esterase Rfl (Negative) JAYDEN/UL Urine RBC (0-2) /hpf Urine WBC (0-3) /hpf Ur Squamous Epith Cells (Few) /hpf Urine Bacteria /hpf Urine Casts POC Urine HCG, Qual Negative (Negative) Influenza A (RT-PCR) Influenza B (RT-PCR) RSV (RT-PCR) SARS-CoV-2 RNA (RT-PCR) Blood Type Antibody Screen Discharge Plan Discharge Clinical Impression: Colitis Patient Disposition: Still a Patient Condition: Stable Instructions: Antibiotic Form Patient Language: Hungarian Prescriptions: No Action atorvastatin 20 mg tablet 20 mg PO HS Rx Instructions: Has been off since June due PCP order. montelukast 10 mg tablet 10 mg PO HS loratadine [Claritin] 10 mg Tablet 10 mg PO DAILY venlafaxine 150 mg capsule,extended release 24hr 150 mg PO QPM Lorenza Flood U-100 Insulin 100 unit/mL insulin pen 1 sliding scale dose SUBCUT AC Rx Instructions: For blood sugar of 150 or less administer 18 units for blood sugar per 25 points greater than 150 administer 1 unit per 25 over Mounjaro 5 mg/0.5 mL pen injector 10 mg SUBCUT WEEKLY Patient Comments: on Saturdays tramadol 50 mg Tablet 50 mg PO Q4H PRN (Reason: Severe pain) Qty: 15 0RF lidocaine 5 % adhesive patch,medicated 1 patch topical DAILY Qty: 30 0RF Rx Instructions: leave on most painful area for up to 12 hrs albuterol sulfate 2.5 mg /3 mL (0.083 %) solution for nebulization 2.5 mg inhalation DAILY PRN (Reason: Shortness Of Breath) cetirizine [All Day Allergy (cetirizine)] 10 mg Tablet 10 mg PO DAILY fluticasone propionate 50 mcg/actuation [place],Suspension 1 spray INTRANASAL DAILY PRN (Reason: allergy symptoms) ergocalciferol (vitamin D2) 50,000 unit PO .COMPLEX Patient Comments: Patient takes on Wednesdays and Sundays Rx Instructions: 50,000 units orally twice a week; prednisone 20 mg tablet 40 mg PO DAILY@0800 cyclobenzaprine 10 mg tablet 10 mg PO HS Patient Comments: patient takes in the evening lisinopril 20 mg tablet 20 mg PO DAILY methotrexate sodium 2.5 mg tablet 12.5 mg PO WEEKLY Rx Instructions: on gabapentin 300 mg capsule 300 mg PO TID diclofenac sodium 75 mg tablet,delayed release (DR/EC) 75 mg PO BID folic acid 1 mg tablet 1 mg PO DAILY hydroxychloroquine 200 mg tablet 400 mg PO HS insulin glargine [Lantus Solostar U-100 Insulin] 100 unit/mL (3 mL) insulin pen 45 unit SUBCUT BID Patient Comments: in the morning and evening pantoprazole 40 mg tablet,delayed release (DR/EC) 40 mg PO DAILY Diurex 162.5-50 mg tablet 1 tablet PO DAILY magnesium 200 mg tablet 400 mg PO DAILY potassium 99 mg tablet 99 mg PO HS famotidine [Acid Controller] 20 mg tablet 20 mg PO HS acetaminophen 500 mg Tablet 1,000 mg PO BID albuterol sulfate 90 mcg/actuation HFA aerosol inhaler 2 puff INHALATION Q8H PRN (Reason: shortness of breath or wheezing) isosorbide dinitrate 5 mg Tablet 5 mg PO TID 30 Days Qty: 90 0RF metoprolol tartrate 25 mg tablet 12.5 mg PO BID 30 Days Qty: 30 0RF cefdinir 300 mg Capsule 300 mg PO Q12HR 9 Days Qty: 18 0RF Follow-up/Referrals: UNKNOWN,DOCTOR [Primary Care Provider] -
[2024-12-14 22:36] LABS: Influenza A QL RT-PCR Negative (Negative); Influenza B QL RT-PCR Negative (Negative); RSV RNA, RT-PCR Negative (Negative); SARS-CoV-2 RNA PCR Negative (Negative)
--- NOTE | 2024-12-14 23:37 | ECG_ITS ---
Test Date: 2024-12-14 23:46:04 Measurements Intervals [place] Rate: 108 P: 50 ID: 116 QRS: 12 QRSD: 94 T: 82 QT: 352 QTc: 472 Interpretive Statements SINUS TACHYCARDIA WITH SHORT ID INTERVAL NONSPECIFIC ST & T-WAVE ABNORMALITY ABNORMAL RHYTHM ECG Compared to ECG 10/04/2024 11:06:26 Short ID interval now present Possible ischemia no longer present T-wave abnormality still present Electronically Signed On 12-15-2024 15:57:52 CDT by Ferny Vasquez M.D.
--- NOTE | 2024-12-14 23:51 | PM.IMHP ---
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 Pertinent ED labs: WBC 15.3, hemoglobin 12.5, hematocrit 40.2, platelet 349, sodium 137, potassium 4, creatinine 0.59, GFR greater than 60 UA has no significant findings. Abdomen/pelvic CT: 1. Colitis involving the midportion of the transverse colon. Clinical correlation and follow-up advised. Ischemia is less likely. 2. Hypodensity in the left kidney, with the study most likely a cyst ultrasound evaluation advised. Patient reports that from morning, she had episodes of nausea, vomiting, and diarrhea (blood-tinged). Patient has a long history of autoimmune disease, and as per the patient, her visual manager was not able to diagnose the particular disease but was leaning towards vasculitis. Her regular visual manager, unfortunately, in April 2024, and her new rheumatology appointment is in January 2025. Patient is on chronic prednisone 40 mg p.o. q.d.. The patient will be admitted to the colitis setting. The patient will be started on Ciprofloxacin and Metronidazole. Gastroenterology will be consulted. Lactic acid is pending. Not considering the stress dose steroids due to the possibility of steroid-induced gastritis. The patient had a screening colonoscopy 2 years ago, and it was non-significant except for polyps. Patient is tachycardic, possibly due to dehydration. [facility] Past Medical History Medical History Vasculitis Depression JEREMY on CPAP Hypertension Hypercholesterolemia Diabetes Surgical History Surgical History H/O arthroscopy H/O myomectomy Family History Family History Mother Diabetes mellitus Myocardial infarction Uterine cancer Father Cancer of blood vessel Sibling Diabetes mellitus Social History Social History Smoking status: Never smoker Alcohol intake: never Drinks per week: 1 Substance use: never Substance use type: does not use Do You Feel Safe in your Home?: Yes Lack of Transportation: No Lack of Food: Never True Current Housing: I Have Housing Concerned About Future Housing: No Difficulty Paying Gas/Electric Bills: No Difficulty Paying for Meds: No Currently Unemployed: No Education: High School Diploma/GED Difficulty w/ Childcare or Family Care: No Spiritual care concerns: No Meds Home Medications and Allergies Home Medications Medication Instructions Recorded Confirmed Type atorvastatin 20 mg tablet 20 mg PO HS 10/15/20 10/03/24 History loratadine 10 mg tablet (Claritin) 10 mg PO DAILY 10/15/20 10/03/24 History montelukast 10 mg tablet 10 mg PO HS 10/15/20 10/03/24 History insulin lispro-aabc 100 unit/mL 1 sliding scale dose subcut AC 05/25/23 10/03/24 History subcutaneous pen (Lyumjev KwikPen U-100 Insulin) tirzepatide 5 mg/0.5 mL 10 mg subcut WEEKLY 05/25/23 10/03/24 History subcutaneous pen injector (Mounjaro) venlafaxine 150 mg 150 mg PO QPM 05/25/23 10/03/24 History capsule,extended release 24 hr tramadol 50 mg tablet 50 mg PO Q4H PRN Severe pain #15 05/29/23 10/03/24 Rx tabs albuterol sulfate 2.5 mg/3 mL 2.5 mg inhalation DAILY PRN 08/10/23 10/03/24 History (0.083 %) solution for nebulization Shortness Of Breath cetirizine 10 mg tablet (All Day 10 mg PO DAILY 08/10/23 10/03/24 History Allergy (cetirizine)) ergocalciferol (vitamin D2) 50,000 unit PO .COMPLEX 08/10/23 10/03/24 History fluticasone propionate 50 1 spray intranasal DAILY PRN 08/10/23 10/03/24 History mcg/actuation nasal allergy symptoms spray,suspension prednisone 20 mg tablet 40 mg PO DAILY@0800 08/10/23 10/03/24 History cyclobenzaprine 10 mg tablet 10 mg PO HS 07/31/24 12/08/24 History diclofenac sodium 75 mg 75 mg PO BID 07/31/24 10/03/24 History tablet,delayed release folic acid 1 mg tablet 1 mg PO DAILY 07/31/24 10/03/24 History gabapentin 300 mg capsule 300 mg PO TID 07/31/24 10/03/24 History hydroxychloroquine 200 mg tablet 400 mg PO HS 07/31/24 10/03/24 History insulin glargine 100 unit/mL (3 45 unit subcut BID 07/31/24 10/03/24 History mL) subcutaneous pen (Lantus Solostar U-100 Insulin) lisinopril 20 mg tablet 20 mg PO DAILY 07/31/24 10/03/24 History methotrexate sodium 2.5 mg tablet 12.5 mg PO WEEKLY 07/31/24 10/03/24 History pantoprazole 40 mg tablet,delayed 40 mg PO DAILY 07/31/24 10/03/24 History release acetaminophen 500 mg tablet 1,000 mg PO BID 09/23/24 10/03/24 History famotidine 20 mg tablet (Acid 20 mg PO HS 09/23/24 10/03/24 History Controller) magnesium 200 mg tablet 400 mg PO DAILY 09/23/24 10/03/24 History magnesium salicylate 162.5 1 tablet PO DAILY 09/23/24 10/03/24 History mg-caffeine 50 mg tablet (Diurex) potassium 99 mg tablet 99 mg PO HS 09/23/24 10/03/24 History albuterol sulfate 90 mcg/actuation 2 puff inhalation Q8H PRN 10/03/24 10/03/24 History aerosol inhaler shortness of breath or wheezing cefdinir 300 mg capsule 300 mg PO Q12HR 9 days #18 caps 10/08/24 Rx isosorbide dinitrate 5 mg tablet 5 mg PO TID 30 days #90 tabs 10/08/24 Rx metoprolol tartrate 25 mg tablet 12.5 mg (1/2 x 25 mg) PO BID 30 10/08/24 Rx days #30 tabs lidocaine 5 % topical patch 1 patch topical DAILY #30 ea 12/08/24 Rx Allergies Allergy/AdvReac Type Severity Reaction Status Date / Time amoxicillin AdvReac Unknown Nausea and Verified 12/08/24 17:46 Vomiting glipizide AdvReac Unknown NAUSEA AND Verified 12/08/24 17:46 VOMITING hydrocodone AdvReac Unknown Nausea and Verified 12/08/24 17:46 Vomiting metformin AdvReac Unknown Nausea and Verified 12/08/24 17:46 Vomiting Vital Signs Vital Signs - 24 hr 12/14/24 20:35 12/14/24 20:48 Temperature 98.7 F Pulse Rate 114 H 107 H Respiratory Rate 18 20 Blood Pressure 153/82 H Pulse Oximetry 100 100 Oxygen Delivery Room Air H&P: Results Labs Labs: Short CBC 12/14/24 Range/Units 21:35 WBC 15.3 H (4.5-10.0) K/mm3 Hgb 12.5 (12.0-15.0) g/dL Hct 40.2 (37.0-47.0) % Plt Count 349 (150-375) k/mm3 BMP 12/14/24 21:34 Sodium 137 Potassium 4.0 Chloride 102 Carbon Dioxide 26 BUN 16 Creatinine 0.59 L Glucose 107 Calcium 8.8 Liver Function 12/14/24 Range/Units 21:34 Total Bilirubin 0.9 (0.2-1.3) mg/dL AST 35 (14-36) U/L ALT 58 H (6-35) U/L Alkaline Phosphatase 49 (38-126) U/L Albumin 4.0 (3.5-5.1) g/dL Urine 12/14/24 Range/Units 21:40 Urine Color Yellow (Yellow) Urine Appearance Cloudy H (Clear) Urine pH 7.0 (5.0-9.0) Ur Specific [place] 1.008 (1.001-1.035) Urine Protein Negative (Negative) mg/dL Urine Glucose (UA) Negative (Negative) mg/dL Assessment and Plan Assessment and plan (1) Colitis: Code(s): K52.9 - Noninfective gastroenteritis and colitis, unspecified Status: Acute (2) Dehydration: Code(s): E86.0 - Dehydration Status: Acute (3) JEREMY on CPAP: Code(s): G47.33 - Obstructive sleep apnea (adult) (pediatric) Status: Chronic Plan Colitis/Diarrhea Start ciprofloxacin and Flagyl Will start clear liquid and advanced as tolerated PPI b.i.d. GI consult Order C.Diff Ordered stool studies As per patient colonoscopy 2 years ago no significant finding except for polyps On chronic steroids Obstructive sleep apnea/obesity hypoventilation syndrome Autopap or home unit ordered Autoimmune condition Continue Rituxan and methotrexate Continue home dose prednisone 20 mg p.o. q.d. Hypertension Continue home med Diabetes mellitus Continue insulin glargine 45 units b.i.d. Mild sliding scale Hypoglycemic protocol Medical reconciliation pending DVT prophylaxis SCD Hospitalist MIPS Advance Care Plan I have confirmed that the patient's Advanced Care Plan is present, code status is documented, or surrogate decision maker is listed in patient medical record.: Yes Medication Reconciliation I have utilized all available resources to obtain, update and review the patients current medications (includes all prescriptions, OTC, herbals, cannabis, and nutritional supplements).: Yes
[2024-12-15] VITALS (10 sets, daily range): BP systolic 147–192; BP diastolic 81–99; PULSE 98–117; RESP 18–20; TEMP 35.7–37.1; O2SAT 90–98; BMI 53.8
[2024-12-15 00:22] LABS: Lactic Acid Reflex 1.5 mmol/L (0.7-2.0)
--- NOTE | 2024-12-15 00:56 | PC.NURSE ---
Pt was able to stand and pivot to a wheelchair to use the restroom. Pt stated after using the restroom her stomach started feeling queezy . ED RN notified. Pt was also unable to provide a stool sample at this time.
[2024-12-15] MEDS: ONDANSETRON INJ 4 MG/2 ML VIAL (00:59)
[2024-12-15] MEDS: metroNIDAZOLE 500 MG/ISO 100ML 500 MG/100 ML BAG 100 MG IVPB ×3 (00:59→16:41)
[2024-12-15] MEDS: HYDROmorphone HCL INJ (*CRX) 2 MG/ML VIAL 0.5 MG IV PUSH (01:16)
[2024-12-15] MEDS: LACTATED RINGERS 1,000 ML 125 ML IV CONT ×3 (01:16→13:35)
--- NOTE | 2024-12-15 02:28 | ADMGEN ---
This patient, Camila Huitron, was admitted to [facility] Surg Room 329-01. Patient/family oriented to hospital policies and general routines including ID bracelet, bed and alarms, visiting hours, pain management, procedures, bathroom and other care routines, personal items, smoking policy, room service/diet, and visiting hours. Information on how to activate the Rapid Response Team has been discussed. Patient/Family are encouraged to report perceived risks to care and to ask questions if they do not understand what they are told or what they should do.
[2024-12-15] MEDS: CIPROFLOXACIN 400 MG/D5W 200ML 200 ML 200 MG IVPB ×2 (03:02→13:37)
[2024-12-15] MEDS: MORPHINE SULFATE (*CRX) 2 MG/ML INJ IV PUSH (07:12)
[2024-12-15] MEDS: predniSONE 20 MG TABLET 40 MG PO (08:26)
[2024-12-15] MEDS: FOLIC ACID 1 MG TABLET PO (08:27)
[2024-12-15] MEDS: ACETAMINOPHEN 500 MG TABLET 1000 MG PO ×2 (08:27→16:41)
[2024-12-15] MEDS: GABAPENTIN 300 MG CAPSULE PO ×2 (08:27→13:37)
[2024-12-15] MEDS: LORATADINE 10 MG TABLET PO (08:28)
[2024-12-15] MEDS: lisinopriL 20 MG TABLET PO (08:28)
[2024-12-15] MEDS: VENLAFAXINE HCL XR 75 MG CAP.ER.24H 150 MG PO (08:28)
[2024-12-15] MEDS: PANTOPRAZOLE SODIUM IV 40 MG VIAL IV PUSH ×2 (08:28→20:56)
[2024-12-15] MEDS: MAGNESIUM OXIDE 400 MG TABLET PO (08:28)
[2024-12-15] MEDS: LIDOCAINE 5% PATCH 1 PATCH TOPICAL (08:32)
--- NOTE | 2024-12-15 08:33 | PM.IMPN ---
Progress Note: A&P Assessment and Plan (1) Colitis: Code(s): K52.9 - Noninfective gastroenteritis and colitis, unspecified Status: Acute Assessment and Plan: CT abdomen/pelvis: Colitis involving the midportion of the transverse colon. Clinical correlation and follow-up advised. Ischemia is less likely. DDX: acute infectious/inflammatory vs ischemic vs motility disorder vs IBD Antibiotics: cipro and flagyl started on 12/14 Blood cultures obtained: pending Gentle IV fluid resuscitation On chronic steroids PPI BID C diff and stool culture ordered Diet: advance as tolerated Per patient colonoscopy 2 years ago no significant finding except for polyps Monitor vital signs, I&Os, track stool output, watch for bloody stools, neuro status and patient is a fall risk Monitor serum electrolytes and CBC GI consulted continue supportive care with pain management and antiemetics Patient advised to follow up in the office as outpatient if symptoms persist will consider repeat colonoscopy at that time If diarrhea returns will check stool studies (2) Abnormal finding on diagnostic imaging of left kidney: Code(s): R93.422 - Abnormal radiologic findings on diagnostic imaging of left kidney Status: Acute Assessment and Plan: CT abdomen/pelvis: Hypodensity in the left kidney with the study most likely a cyst ultrasound evaluation advised. US ordered (3) Diabetes mellitus, insulin dependent (IDDM), uncontrolled: Status: Acute Assessment and Plan: - hypoglycemia protocol - POC blood glucose ACHS - home medication - 45 units lantus, SSI - correct regimen ordered - SSI, monitor and resume lantus when returned to diet - A1C 7.8 on 09/22 (4) Hypertension: Qualifiers: Hypertension type: unspecified Qualified Code(s): I10 - Essential (primary) hypertension Code(s): I10 - Essential (primary) hypertension Status: Acute Assessment and Plan: Chronic, continue home medications - lisinopril 20 mg daily - metoprolol 12.5 mg BID - blood pressures remain stable, continue to monitor (5) Autoimmune disease: Code(s): 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 q.d. 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 Patient is pleasant lying comfortably in bed. She is tolerating her diet well denying any abdominal pain and vomiting/diarrhea since admission. She continues to endorse slight nausea but states that her appetite is still present. She has no other complaints denying chest pain, palpitations, and shortness of breath. She is having increased sciatic pain since admission. Gabapentin dose increased. Patient has follow up with PCP in 1 week about sciatic pain. Review of Systems Review of Systems: All systems reviewed & are unremarkable except as noted in HPI and below Exam Narrative: AF HR 107 RR 18 SPO2 90 BP 163/93 General: female in no acute respiratory distress who is nontoxic appearing, lying semi recumbent in bed. HEENT: Normocephalic. Atraumatic. Extraocular movement intact. Sclera clear and anicteric. No facial asymmetry. Chest: Lungs are clear to auscultation bilaterally. No wheezes or crackles. CV: Heart was regular rate and rhythm. S1-S2. No murmurs, gallops, or rubs. Abd: Abdomen was soft. Nontender. Nondistended. Positive bowel sounds. Ext: No clubbing, cyanosis, or edema. DP pulses bilaterally. Neuro: Patient is alert and oriented x4. Speech is clear. Objective Data Vital Signs Vital Signs: Vital Signs - 24 hr 12/14/24 20:35 12/14/24 20:48 12/15/24 00:00 Temperature 98.7 F 96.6 F L Pulse Rate 114 H 107 H 111 H Respiratory Rate 18 20 20 Blood Pressure 153/82 H 147/81 H Pulse Oximetry 100 100 95 Oxygen Delivery Room Air 12/15/24 02:25 12/15/24 04:00 12/15/24 05:10 Temperature 98.1 F Pulse Rate 112 H 111 H Respiratory Rate 20 Blood Pressure 166/84 H Pulse Oximetry 98 Oxygen Delivery Room Air 12/15/24 08:00 Temperature 98.8 F Pulse Rate 113 H Respiratory Rate 18 Blood Pressure 158/99 H Pulse Oximetry 94 Oxygen Delivery Intake/Output Intake/Output: Intake & Output 12/12/24 12/13/24 12/14/24 12/15/24 23:59 23:59 23:59 23:59 Intake Total 2566.7 Balance 2566.7 Meds/Results Medications: Active Medications Generic Name Dose Route Start Last Admin Trade Name Freq PRN Reason Stop Dose Admin Acetaminophen 1,000 mg 12/15/24 09:00 12/15/24 08:27 Acetaminophen 500 Mg Tablet PO 1,000 mg BID ZEE Administration Albuterol 2.5 mg 12/15/24 06:06 Albuterol Sulfate Neb 2.5 Mg/3 Ml Inh INHALATION DAILYRT PRN Shortness Of Breath Albuterol 2 puff 12/15/24 06:06 Albuterol Sulfate (*Sp) Aerosol 1 Puff INHALATION Q8H PRN shortness of breath or wheezing Atorvastatin Calcium 20 mg 12/15/24 21:00 Atorvastatin 20 Mg Tablet PO HS ZEE Cyclobenzaprine HCl 10 mg 12/15/24 21:00 Cyclobenzaprine Hcl 10 Mg Tablet PO HS ZEE Folic Acid 1 mg 12/15/24 09:00 12/15/24 08:27 Folic Acid 1 Mg Tablet PO 1 mg DAILY ZEE Administration Gabapentin 300 mg 12/15/24 09:00 12/15/24 08:27 Gabapentin 300 Mg Capsule PO 300 mg TID ZEE Administration Hydroxychloroquine Sulfate 400 mg 12/15/24 21:00 Hydroxychloroquine Sulfate 200 Mg Tablet PO HS ZEE Metronidazole 500 mg in 100 mls @ 100 mls/hr 12/15/24 08:00 12/15/24 08:32 Flagyl 500 Mg/Iso Soln 100 Ml IVPB 100 mls/hr Q8H ZEE Administration Lactated Ringer's 1,000 mls @ 125 mls/hr 12/14/24 23:40 12/15/24 03:00 Lr - Lactated Ringers Iv IV CONT 125 mls/hr .Q8H ZEE Administration Ciprofloxacin/Dextrose 200 mls @ 200 mls/hr 12/15/24 02:00 12/15/24 03:02 Cipro 400 Mg/D5w 200 Ml IVPB 200 mls/hr Q12H ZEE Administration Lidocaine 1 patch 12/15/24 09:00 12/15/24 08:32 Lidocaine 5% Patch TOPICAL 1 patch DAILY ZEE Administration Lisinopril 20 mg 12/15/24 09:00 12/15/24 08:28 Lisinopril 20 Mg Tablet PO 20 mg DAILY ZEE Administration Loratadine 10 mg 12/15/24 09:00 12/15/24 08:28 Loratadine 10 Mg Tablet PO 01/14/25 08:59 10 mg DAILY ZEE Administration Magnesium Oxide 400 mg 12/15/24 09:00 12/15/24 08:28 Magnesium Oxide 400 Mg Tablet PO 400 mg DAILY ZEE Administration Montelukast Sodium 10 mg 12/15/24 21:00 Montelukast Sodium 10 Mg Tablet PO HS [facility] Morphine Sulfate 2 mg 12/15/24 06:08 12/15/24 07:12 Morphine Sulfate (*Crx) 2 Mg/Ml Inj IV PUSH 2 mg Q4H PRN Administration Pain Rated 7-10 Non-Formulary Medication 0 each 12/15/24 06:58 Nonformulary Nutritional Supplement XX 12/16/24 06:57 PRN PRN PROTOCOL Non-Formulary Medication 1 each 12/15/24 07:00 Nonformulary Nutritional Supplement XX 12/16/24 06:59 PRN PRN PROTOCOL Pantoprazole Sodium 40 mg 12/15/24 09:00 12/15/24 08:28 Pantoprazole Sodium Iv 40 Mg Vial IV PUSH 40 mg Q12HR ZEE Administration Prednisone 40 mg 12/15/24 08:00 12/15/24 08:26 Prednisone 20 Mg Tablet PO 40 mg DAILY@0800 ZEE Administration Tramadol HCl 50 mg 12/15/24 06:06 Tramadol Hcl (*Crx) 50 Mg Tablet PO Q4H PRN Severe pain Venlafaxine HCl 150 mg 12/15/24 09:00 12/15/24 08:28 Venlafaxine Hcl Xr 75 Mg Cap.Er.24h PO 150 mg QAM ZEE Administration Radiology Results: ITS Impressions Abdomen/Pelvis CT 12/14/24 22:29 IMPRESSION: 1. Colitis involving the midportion of the transverse colon. Clinical correlation and follow-up advised. Ischemia is less likely. 2. Hypodensity in the left kidney with the study most likely a cyst ultrasound evaluation advised. Labs Labs: Laboratory Results - last 24 hr 12/14/24 12/14/24 12/14/24 21:34 21:35 21:40 WBC 15.3 H RBC 4.35 Hgb 12.5 Hct 40.2 MCV 92.4 MCH 28.7 MCHC 31.1 L RDW 17.2 H Plt Count 349 MPV 10.5 H Immature Gran % (Auto) 1.6 H Neut % (Auto) 76.8 H Lymph % (Auto) 11.3 L Coke % (Auto) 9.1 H Eos % (Auto) 0.7 Baso % (Auto) 0.5 Lymph # (Auto) 1.73 Coke # (Auto) 1.4 H Eos # (Auto) 0.1 Baso # (Auto) 0.1 Abs Immat Gran (auto) 0.25 H Absolute Neuts (auto) 11.7 H Absolute Nucleated RBC 0.000 Nucleated RBC % 0.0 PT 12.3 INR 0.9 APTT 22.9 Sodium 137 Potassium 4.0 Chloride 102 Carbon Dioxide 26 Anion Gap 9 BUN 16 Creatinine 0.59 L Estim Creat Clear Calc Not Reportable Estimated GFR > 60 Glucose 107 Lactic Acid Calcium 8.8 Total Bilirubin 0.9 AST 35 ALT 58 H Alkaline Phosphatase 49 Total Protein 7.0 Albumin 4.0 Lipase 155 Urine Color Yellow Urine Appearance Cloudy H Urine pH 7.0 Ur Specific Mal[place] 1.008 Urine Protein Negative Urine Glucose (UA) Negative Urine Ketones Negative Ur Blood (Man) Negative Urine Nitrate Negative Urine Bilirubin Negative Urine Urobilinogen 0.2 Leukocyte Esterase Rfl Negative Urine RBC 0-2 Urine WBC 0-5 Ur Squamous Epith Cells None seen Urine Bacteria None seen Urine Casts 0-2 POC Urine HCG, Qual Influenza A (RT-PCR) Negative Influenza B (RT-PCR) Negative RSV (RT-PCR) Negative SARS-CoV-2 RNA (RT-PCR) Negative Blood Type B Positive Antibody Screen Negative 12/14/24 12/14/24 21:43 23:54 WBC RBC Hgb Hct MCV MCH MCHC RDW Plt Count MPV Immature Gran % (Auto) Neut % (Auto) Lymph % (Auto) Coke % (Auto) Eos % (Auto) Baso % (Auto) Lymph # (Auto) Coke # (Auto) Eos # (Auto) Baso # (Auto) Abs Immat Gran (auto) Absolute Neuts (auto) Absolute Nucleated RBC Nucleated RBC % PT INR APTT Sodium Potassium Chloride Carbon Dioxide Anion Gap BUN Creatinine Estim Creat Clear Calc Estimated GFR Glucose Lactic Acid 1.5 Calcium Total Bilirubin AST ALT Alkaline Phosphatase Total Protein Albumin Lipase Urine Color Urine Appearance Urine pH Ur Specific Malo Urine Protein Urine Glucose (UA) Urine Ketones Ur Blood (Man) Urine Nitrate Urine Bilirubin Urine Urobilinogen Leukocyte Esterase Rfl Urine RBC Urine WBC Ur Squamous Epith Cells Urine Bacteria Urine Casts POC Urine HCG, Qual Negative Influenza A (RT-PCR) Influenza B (RT-PCR) RSV (RT-PCR) SARS-CoV-2 RNA (RT-PCR) Blood Type Antibody Screen Quality VTE Prophylaxis VTE prophylaxis: mechanical ordered
--- NOTE | 2024-12-15 09:45 | P.CONGI_ITS ---
Assessment and Plan Assessment and plan (1) Colitis: Code(s): K52.9 - Noninfective gastroenteritis and colitis, unspecified Status: Acute (2) Nausea and vomiting: Qualifiers: Vomiting type: bilious vomiting Qualified Code(s): R11.14 - Bilious vomiting Code(s): R11.2 - Nausea with vomiting, unspecified Status: Acute (3) Hematochezia: Code(s): K92.1 - Melena Status: Acute (4) Hepatic steatosis: Code(s): K76.0 - Fatty (change of) liver, not elsewhere classified Status: Acute Plan 1. Colitis/hematochezia/personal history of colon polyps/bilateral lower quadrant abdominal pain/diarrhea: Last colonoscopy per patient was performed 2- 3 years ago in [facility] at which time she had polyps removed and was advised to have a repeat [address] scan showed colitis involving the midportion of the transverse colon. Labs show WBC is 15, HGB 13, HCT 40, MCV 92, platelets 349, INR 0.9. No signs of active GI bleeding. Patient admits to an acute onset of GI symptoms starting yesterday around 4:00 a.m. During that time patient was having lower abdominal pain, nausea, vomiting and diarrhea. Patient admits to bilateral lower quadrant abdominal pain that is crampy and intermittent in nature. This pain would increase in severity prior to bowel movements. Patient states she is only having mild nausea since admission without vomiting. Prior to yesterday the patient was having daily bowel movements that were formed non urgent. She states she had a few episodes of diarrhea yesterday and 1 time noticed a trace amount of blood on the toilet paper. Denies any prior history of hemorrhoids. No bowel movements since admission. DDX: Acute infectious/inflammatory etiology versus ischemic versus motility disorder versus IBD. * Patient is on Cipro and Flagyl, continue * on prednisone * continue supportive care with pain management and antiemetics * Patient advised to follow up in the office as outpatient if symptoms persist will consider repeat colonoscopy at that time * If diarrhea returns will check stool studies Thank you very much for allowing me to share in the care of this very nice patient. This report may have been done utilizing a voice recognition system. Attempts have been made to correct errors. However, there may be uncorrected grammatical, spelling, and recognition errors present. GI Consult Note Consult date/time: 12/15/24 09:45 Reason for consult: Colitis HPI: Camila Huitron is a 49 year old female with PMSH of diabetes, HTN, JEREMY, HLD, vasculitis and autoimmune disorder, and depression. Patient presented to the emergency room yesterday with complaints of nausea, vomiting, abdominal pain and bloody diarrhea x1 day. GI has been consulted for colitis. Patient's Yves was present at bedside throughout the entire visit. Patient complains of acute onset of GI symptoms yesterday around 4:00 a.m.. She states that she started having bilateral lower quadrant abdominal pain that is intermittent and crampy in nature. Pain increased prior to bowel movements. Pain has improved but not resolved since admission. Admits to mild nausea since admission but denies any vomiting. At home the patient was on Protonix 40 mg daily and famotidine 20 mg daily and reflux was well controlled. Yesterday evening she started having diarrhea at which time she states she noticed a trace amount of blood on the toilet paper. Prior to yesterday she was having daily bowel movements of formed and not urgent. Denies bloating, odynophagia, dysphagia, reflux, regurgitation, early satiety, unexplained weight loss, appetite loss, constipation or melena. Patient has been on Mounjaro for almost 1 year without any recent dose changes and denies any GI symptoms after starting medication. Patient uses ibuprofen a few times daily for the past few years. Denies any aspirin or anticoagulant use. She denies any alcohol, tobacco, or marijuana use. Family history negative for CRC or IBD. ENDOSCOPY HISTORY: EGD: Patient has never had an EGD COLONOSCOPY: Per patient last colonoscopy was performed 2-3 years ago in [facility] and per patient she had polyps removed and was advised to follow-up in 5 years LABS AND STOOL STUDIES: Labs 12/14/2024: Sodium 137, potassium 4.0, BUN 16, creatinine 0.59, GFR 60, calcium 8.8 WBC 15, Hgb 13, Hct 40, MCV 92, platelets 349, INR 0.9 Total bilirubin 0.9, AST 35, ALT 58, Alkaline Phos 49, albumin 4.0, lipase 155, lactic acid 1.5 IMAGING: CT abd/pelvis w/contrast 12/14/2024: Findings: VISUALIZED LOWER CHEST: Subsegmental atelectasis in the right lung base. Dependent atelectatic changes. Otherwise, Normal. UPPER ABDOMINAL ORGANS: Liver: Focal areas of fat infiltration are seen in both lobes in the area of the interlobar fissure. Gallbladder: Normal. Spleen: Normal. Stomach/duodenum: Normal. Pancreas: Normal. Adrenals: Normal. Kidneys: Scarring is seen in the left kidney upper pole with adjacent soft tissue density most likely a cyst measuring 1.6 cm. Follow-up ultrasound is advised. PELVIC ORGANS: The bladder is normal. BOWEL AND MESENTERY: Colon: Thickening of the midportion of the transverse colon with surrounding fat stranding suggestive of colitis. No significant enhancement seen. Diverticulitis is less likely. Normal appendix. Small Bowel: Normal. No obstruction. Peritoneum/mesentery: No free air or free fluid. No mesenteric lymphadenopathy. RETROPERITONEUM: Normal aorta. No retroperitoneal lymphadenopathy. MUSCULOSKELETAL: Superficial soft tissues: Soft tissue density seen posterior to the umbilicus which may be fluid clinical evaluation advised. Otherwise,The superficial soft tissues are normal. Bones: Age appropriate degenerative changes of the spine. Bilateral sacroiliitis. IMPRESSION: 1. Colitis involving the midportion of the transverse colon. Clinical correlation and follow-up advised. Ischemia is less likely. 2. Hypodensity in the left kidney with the study most likely a cyst ultrasound evaluation advised. Abdominal Ultrasound 08/07/2024: FINDINGS: Hepatic steatosis. No hepatic space-occupying mass lesion. Normal hepatopedal portal venous flow direction. The pancreatic tail is not optimally demonstrated but the pancreas otherwise appears unremarkable. No pancreatic duct dilatation is detected. No gallstones or gallbladder wall thickening. No pericholecystic fluid collection. The common bile duct measures 3.4 mm, normal. IMPRESSION: Hepatic steatosis Review of Systems 2 Constitutional: Constitutional: Reports as per HPI and Reports body ache(s) ENT: Reports as per HPI Cardiovascular: Cardiovascular: Reports as per HPI, Denies chest pain and Denies dyspnea Respiratory: Respiratory: Denies cough and Denies dyspnea Gastrointestinal: Gastrointestinal: Reports as per HPI Musculoskeletal: Musculoskeletal: Reports as per HPI and Reports back pain Comments: Patient complains of lower back pain with ambulation Integumentary/Breasts: Skin/Breast: Reports as per HPI Psychiatric: Psychiatric: Reports as per HPI Endocrine: Endocrine: Reports no additional endocrine complaints Hematologic/Lymphatic: Hematologic/Lymphatic: Reports no additional hematologic/lymphatic complaints [facility] Past Medical History Medical History Vasculitis Depression JEREMY on CPAP Hypertension Hypercholesterolemia Diabetes Surgical History Surgical History H/O arthroscopy H/O myomectomy Family History Family History Mother Diabetes mellitus Myocardial infarction Uterine cancer Father Cancer of blood vessel Sibling Diabetes mellitus Social History Social History Smoking status: Never smoker Alcohol intake: never Drinks per week: 1 Substance use: never Substance use type: does not use Do You Feel Safe in your Home?: Yes Lack of Transportation: No Lack of Food: Never True Current Housing: I Have Housing Concerned About Future Housing: No Difficulty Paying Gas/Electric Bills: No Difficulty Paying for Meds: No Currently Unemployed: No Education: Trade/Vocational Certificate Difficulty w/ Childcare or Family Care: No Spiritual care concerns: No Meds Home Medications and Allergies Home Medications Medication Instructions Recorded Confirmed Type atorvastatin 20 mg tablet 20 mg PO HS 10/15/20 12/15/24 History loratadine 10 mg tablet (Claritin) 10 mg PO DAILY 10/15/20 12/15/24 History montelukast 10 mg tablet 10 mg PO HS 10/15/20 12/15/24 History insulin lispro-aabc 100 unit/mL 1 sliding scale dose subcut AC 05/25/23 12/15/24 History subcutaneous pen (Lyumjev KwikPen U-100 Insulin) tirzepatide 5 mg/0.5 mL 10 mg subcut WEEKLY 05/25/23 12/15/24 History subcutaneous pen injector (Mounjaro) venlafaxine 150 mg 150 mg PO QAM 05/25/23 12/15/24 History capsule,extended release 24 hr tramadol 50 mg tablet 50 mg PO Q4H PRN Severe pain #15 05/29/23 12/15/24 Rx tabs albuterol sulfate 2.5 mg/3 mL 2.5 mg inhalation DAILY PRN 08/10/23 12/15/24 History (0.083 %) solution for nebulization Shortness Of Breath cetirizine 10 mg tablet (All Day 10 mg PO DAILY 08/10/23 12/15/24 History Allergy (cetirizine)) ergocalciferol (vitamin D2) 50,000 unit PO .COMPLEX 08/10/23 12/15/24 History prednisone 20 mg tablet 40 mg PO DAILY@0800 08/10/23 12/15/24 History cyclobenzaprine 10 mg tablet 10 mg PO HS 07/31/24 12/15/24 History diclofenac sodium 75 mg 75 mg PO BID 07/31/24 12/15/24 History tablet,delayed release folic acid 1 mg tablet 1 mg PO DAILY 07/31/24 12/15/24 History gabapentin 300 mg capsule 300 mg PO TID 07/31/24 12/15/24 History hydroxychloroquine 200 mg tablet 400 mg PO HS 07/31/24 12/15/24 History insulin glargine 100 unit/mL (3 45 unit subcut BID 07/31/24 12/15/24 History mL) subcutaneous pen (Lantus Solostar U-100 Insulin) lisinopril 20 mg tablet 20 mg PO DAILY 07/31/24 12/15/24 History methotrexate sodium 2.5 mg tablet 12.5 mg PO WEEKLY 07/31/24 12/15/24 History pantoprazole 40 mg tablet,delayed 40 mg PO DAILY 07/31/24 12/15/24 History release acetaminophen 500 mg tablet 1,000 mg PO BID 09/23/24 12/15/24 History famotidine 20 mg tablet (Acid 20 mg PO HS 09/23/24 12/15/24 History Controller) magnesium 200 mg tablet 400 mg PO DAILY 09/23/24 12/15/24 History magnesium salicylate 162.5 1 tablet PO DAILY 09/23/24 12/15/24 History mg-caffeine 50 mg tablet (Diurex) potassium 99 mg tablet 99 mg PO HS 09/23/24 12/15/24 History albuterol sulfate 90 mcg/actuation 2 puff inhalation Q8H PRN 10/03/24 12/15/24 History aerosol inhaler shortness of breath or wheezing metoprolol tartrate 25 mg tablet 12.5 mg (1/2 x 25 mg) PO BID 30 10/08/24 12/15/24 Rx days #30 tabs lidocaine 5 % topical patch 1 patch topical DAILY #30 ea 12/08/24 12/15/24 Rx sulfamethoxazole 800 1 tablet PO 3XW 12/15/24 12/15/24 History mg-trimethoprim 160 mg tablet (Bactrim DS) Allergies Allergy/AdvReac Type Severity Reaction Status Date / Time amoxicillin AdvReac Unknown Nausea and Verified 12/08/24 17:46 Vomiting glipizide AdvReac Unknown NAUSEA AND Verified 12/08/24 17:46 VOMITING hydrocodone AdvReac Unknown Nausea and Verified 12/08/24 17:46 Vomiting metformin AdvReac Unknown Nausea and Verified 12/08/24 17:46 Vomiting Vital Signs Vital Signs - 24 hr 12/14/24 20:35 12/14/24 20:48 12/15/24 00:00 Temperature 98.7 F 96.6 F L Pulse Rate 114 H 107 H 111 H Respiratory Rate 18 20 20 Blood Pressure 153/82 H 147/81 H Pulse Oximetry 100 100 95 Oxygen Delivery Room Air 12/15/24 02:25 12/15/24 04:00 12/15/24 05:10 Temperature 98.1 F Pulse Rate 112 H 111 H Respiratory Rate 20 Blood Pressure 166/84 H Pulse Oximetry 98 Oxygen Delivery Room Air 12/15/24 08:00 Temperature 98.8 F Pulse Rate 113 H Respiratory Rate 18 Blood Pressure 158/99 H Pulse Oximetry 94 Oxygen Delivery Exam 2 Const: General: cooperative, comfortable, no acute distress and well developed Nutritional Appearance: obese Orientation/consciousness: oriented to person, oriented to place, oriented to time and patient oriented x3 HENMT: Head: normal to inspection, normocephalic and atraumatic Mouth: Yes Normal oral and palatal mucosa present and Yes moist mucous membranes Eyes: General: appearance normal, both eyes and all related structures C onjunctivae: conjunctivae normal Sclera: sclerae normal Pupils: Equal, round and reactive pupils present Neck: Neck: normal visual inspection Chest: Chest palpation & inspection: normal inspection of the chest Resp: Effort & Inspection: normal respiratory effort and able to speak in complete sentences Auscultation: clear to auscultation bilaterally Cardio: Jugular venous distension: no JVD Rate: regular rate Rhythm: r egular rhythm Heart sounds: S1 normal heart sound present and S2 normal heart sound present GI: Inspection: normal to inspection GI Palp: Yes Soft to palpation and Yes No hepatosplenomegaly present Auscultation: normal bowel sounds Rectal Exam: deferred Skin: General skin exam: normal color and no rashes or lesions noted Neuro: General: oriented to person, oriented to place, oriented to time and patient oriented x3 Cranial nerves: Yes Equal, round and reactive pupils present Speech: normal speech Extrem: General: normal to inspection and edema Psych: Appearance: grossly normal and well kempt Affect: normal affect Results Labs 12/14/24 21:35 12/14/24 21:34 Labs: Short CBC 12/14/24 Range/Units 21:35 WBC 15.3 H (4.5-10.0) K/mm3 Hgb 12.5 (12.0-15.0) g/dL Hct 40.2 (37.0-47.0) % Plt Count 349 (150-375) k/mm3 BMP 12/14/24 21:34 Sodium 137 Potassium 4.0 Chloride 102 Carbon Dioxide 26 BUN 16 Creatinine 0.59 L Glucose 107 Calcium 8.8 Liver Function 12/14/24 Range/Units 21:34 Total Bilirubin 0.9 (0.2-1.3) mg/dL AST 35 (14-36) U/L ALT 58 H (6-35) U/L Alkaline Phosphatase 49 (38-126) U/L Albumin 4.0 (3.5-5.1) g/dL Urine 12/14/24 Range/Units 21:40 Urine Color Yellow (Yellow) Urine Appearance Cloudy H (Clear) Urine pH 7.0 (5.0-9.0) Ur Specific [place] 1.008 (1.001-1.035) Urine Protein Negative (Negative) mg/dL Urine Glucose (UA) Negative (Negative) mg/dL
[2024-12-15] MEDS: METOPROLOL TARTRATE 12.5 MG TABLET PO ×2 (10:15→16:41)
--- NOTE | 2024-12-15 11:06 | P.CDI_ITS ---
CDI Query Clarification Request Patient with a BMI of 53.9 please provide a diagnosis to accompany this finding: * Overweight * Obesity * Morbid Obesity * Other/Unknown <Jane Fulton RN - Last Filed: 12/15/24 11:07> Clarified Diagnosis Clarified Diagnosis: Morbid obesity <Debora Zepeda PA-C - Last Filed: 12/15/24 13:53>
[2024-12-15 16:37] LABS: Glucose Point of Care 279 mg/dl (65-105)
[2024-12-15] MEDS: GABAPENTIN 400 MG CAPSULE PO (16:41)
[2024-12-15] MEDS: INSULIN ASPART (*BKC) 100 UNITS/ML SUB-Q (16:43)
[2024-12-15] MEDS: MONTELUKAST SODIUM 10 MG TABLET PO (20:56)
[2024-12-15] MEDS: ATORVASTATIN 20 MG TABLET PO (20:56)
[2024-12-15] MEDS: CYCLOBENZAPRINE HCL 10 MG TABLET PO (20:56)
[2024-12-15] MEDS: HYDROXYCHLOROQUINE SULFATE 200 MG TABLET 400 MG PO (20:56)
[2024-12-15 21:36] LABS: Glucose Point of Care 206 mg/dl (65-105)
[2024-12-16] VITALS (11 sets, daily range): BP systolic 151–161; BP diastolic 84–92; PULSE 88–111; RESP 16–20; TEMP 36.5–36.8; O2SAT 95–97
[2024-12-16] MEDS: metroNIDAZOLE 500 MG/ISO 100ML 500 MG/100 ML BAG 100 MG IVPB ×4 (00:16→23:14)
[2024-12-16] MEDS: CIPROFLOXACIN 400 MG/D5W 200ML 200 ML 200 MG IVPB ×2 (02:21→12:32)
[2024-12-16 06:56] LABS: Hematocrit 35.6 % (37.0-47.0); Hemoglobin 10.8 g/dL (12.0-15.0); Mean Corpuscular HGB Conc 30.3 g/dl (32-36); Mean Corpuscular Hemoglobin 28.9 pg (26-34); Mean Corpuscular Volume 95.2 fl (80-100); Mean Platelet Volume 10.4 fl (7.4-10.4); Platelet Count Result 302 k/mm3 (150-375); Red Blood Count 3.74 M/mm3 (4.2-5.4); White Blood Count 17.7 K/mm3 (4.5-10.0)
[2024-12-16 07:09] LABS: Alanine Aminotransferase 47 U/L (6-35); Albumin Level 3.5 g/dL (3.5-5.1); Alkaline Phosphatase 50 U/L (38-126); Anion Gap 5 mmol/L (4-12); Aspartate Amino Transferase 24 U/L (14-36); Bilirubin,Total 0.7 mg/dL (0.2-1.3); Blood Urea Nitrogen 7 mg/dL (7-17); Calcium 8.5 mg/dL (8.4-10.2); Carbon Dioxide 28 mmol/L (22-30); Chloride 102 mmol/L (98-107); Estimated CRCL calculation 160 ml/min; Estimated Glomerular Filt Rate > 60; Glucose 161 mg/dL (65-110); Potassium 3.7 mmol/L (3.4-5.0); Sodium 135 mmol/L (137-145)
[2024-12-16 07:43] LABS: Glucose Point of Care 174 mg/dl (65-105)
[2024-12-16] MEDS: LACTATED RINGERS 1,000 ML 125 ML IV CONT (08:28)
[2024-12-16] MEDS: VENLAFAXINE HCL XR 75 MG CAP.ER.24H 150 MG PO (08:33)
[2024-12-16] MEDS: LORATADINE 10 MG TABLET PO (08:33)
[2024-12-16] MEDS: GABAPENTIN 400 MG CAPSULE PO ×3 (08:33→17:05)
[2024-12-16] MEDS: FOLIC ACID 1 MG TABLET PO (08:33)
[2024-12-16] MEDS: ACETAMINOPHEN 500 MG TABLET 1000 MG PO ×2 (08:33→17:05)
[2024-12-16] MEDS: predniSONE 20 MG TABLET 40 MG PO (08:33)
[2024-12-16] MEDS: MAGNESIUM OXIDE 400 MG TABLET PO (08:33)
[2024-12-16] MEDS: METOPROLOL TARTRATE 12.5 MG TABLET PO ×2 (08:34→17:05)
[2024-12-16] MEDS: PANTOPRAZOLE SODIUM IV 40 MG VIAL IV PUSH ×2 (08:34→20:41)
[2024-12-16] MEDS: lisinopriL 20 MG TABLET PO (08:34)
[2024-12-16] MEDS: LIDOCAINE 5% PATCH 1 PATCH TOPICAL (08:37)
--- NOTE | 2024-12-16 09:27 | P.PNIM_ITS ---
Progress Note: A&P Assessment and Plan (1) Colitis: Code(s): K52.9 - Noninfective gastroenteritis and colitis, unspecified Status: Acute Assessment and Plan: CT abdomen/pelvis: Colitis involving the midportion of the transverse colon. Clinical correlation and follow-up advised. Ischemia is less likely. DDX: acute infectious/inflammatory vs ischemic vs motility disorder vs IBD Antibiotics: cipro and flagyl started on 12/14 Blood cultures obtained: NGTD On chronic steroids PPI BID C diff and stool culture ordered Diet: advance as tolerated. Per patient colonoscopy 2 years ago no significant finding except for polyps Monitor vital signs, I&Os, track stool output, watch for bloody stools, neuro status and patient is a fall risk Monitor serum electrolytes and CBC GI consulted * continue supportive care with pain management and antiemetics * Patient advised to follow up in the office as outpatient if symptoms persist will consider repeat colonoscopy at that time * If diarrhea returns will check stool studies Denies nausea/vomiting/diarrhea. Tolerating a diet and will be advanced to a regular diabetic. (2) Abnormal finding on diagnostic imaging of left kidney: Code(s): R93.422 - Abnormal radiologic findings on diagnostic imaging of left kidney Status: Acute Assessment and Plan: CT abdomen/pelvis: Hypodensity in the left kidney with the study most likely a cyst ultrasound evaluation advised. Renal US showed no definite abnormality in both kidneys. (3) Diabetes mellitus, insulin dependent (IDDM), uncontrolled: Status: Acute Assessment and Plan: - hypoglycemia protocol - POC blood glucose ACHS - home medication - 45 units lantus BID, SSI - correct regimen ordered - SSI, resume lantus at 30 units daily - A1C 7.8 on 09/22 Blood glucose levels are stable in the morning with drastic increase throughout the day. Will resume lantus at 30 units daily for her am dose. Continue holding nightly as morning glucose stable. 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 q.d. 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 Patient is pleasant lying comfortably in bed. She states that the nausea vomiting have completely resolved and is no longer endorsing either. She has yet to have a regular diet this tolerating the full liquid well and will be advanced today. She continues to endorse abdominal discomfort but states that is well controlled on the current regimen. She has yet to have a bowel movement but is passing gas. She has no other complaints chest pain, palpitations, and shortness of breath. Review of Systems Review of Systems: All systems reviewed & are unremarkable except as noted in HPI and below Exam Narrative: AF HR 100 RR 20 SpO2 96 BP 154/91 General: female in no acute respiratory distress who is nontoxic appearing, lying semi recumbent in bed. HEENT: Normocephalic. Atraumatic. Extraocular movement intact. Sclera clear and anicteric. No facial asymmetry. Chest: Lungs are clear to auscultation bilaterally. No wheezes or crackles. CV: Heart was regular rate and rhythm. S1-S2. No murmurs, gallops, or rubs. Abd: Abdomen was soft. Nontender. Nondistended. Positive bowel sounds. Ext: No clubbing, cyanosis, or edema. DP pulses bilaterally. Neuro: Patient is alert and oriented x4. Speech is clear. Objective Data Vital Signs Vital Signs: Vital Signs - 24 hr 12/15/24 12:00 12/15/24 12:00 12/15/24 15:52 Temperature 96.3 F L 97.0 F L Pulse Rate 107 H 109 H 103 H Respiratory Rate 18 20 Blood Pressure 163/93 H 192/95 H Pulse Oximetry 90 93 Oxygen Delivery 12/15/24 16:00 12/15/24 20:00 12/15/24 20:25 Temperature 97.3 F L Pulse Rate 106 H 101 H 98 Respiratory Rate 20 Blood Pressure 163/81 H Pulse Oximetry 96 Oxygen Delivery 12/15/24 20:56 12/15/24 22:52 12/16/24 00:02 Temperature Pulse Rate 100 Respiratory Rate Blood Pressure Pulse Oximetry 96 Oxygen Delivery Autopap Autopap 12/16/24 04:04 12/16/24 04:35 12/16/24 08:00 Temperature 98.3 F 98.2 F Pulse Rate 88 90 99 Respiratory Rate 20 20 Blood Pressure 160/85 H 151/84 H Pulse Oximetry 97 96 Oxygen Delivery 12/16/24 08:34 Temperature Pulse Rate 103 H Respiratory Rate Blood Pressure Pulse Oximetry Oxygen Delivery Intake/Output Intake/Output: Intake & Output 12/13/24 12/14/24 12/15/24 12/16/24 23:59 23:59 23:59 23:59 Intake Total 4646.7 2240 Balance 4646.7 2240 Meds/Results Medications: Active Medications Generic Name Dose Route Start Last Admin Trade Name Freq PRN Reason Stop Dose Admin Acetaminophen 1,000 mg 12/15/24 09:00 12/16/24 08:33 Acetaminophen 500 Mg Tablet PO 1,000 mg BID ZEE Administration Albuterol 2.5 mg 12/15/24 06:06 Albuterol Sulfate Neb 2.5 Mg/3 Ml Inh INHALATION DAILYRT PRN Shortness Of Breath Albuterol 2 puff 12/15/24 06:06 Albuterol Sulfate (*Sp) Aerosol 1 Puff INHALATION Q8H PRN shortness of breath or wheezing Atorvastatin Calcium 20 mg 12/15/24 21:00 12/15/24 20:56 Atorvastatin 20 Mg Tablet PO 20 mg HS ZEE Administration Cyclobenzaprine HCl 10 mg 12/15/24 21:00 12/15/24 20:56 Cyclobenzaprine Hcl 10 Mg Tablet PO 10 mg HS ZEE Administration Dextrose 12.5 gm 12/15/24 13:58 Dextrose 50% 25 Gm/50 Ml Syringe IV PUSH PRN PRN Hypoglycemia Protocol Folic Acid 1 mg 12/15/24 09:00 12/16/24 08:33 Folic Acid 1 Mg Tablet PO 1 mg DAILY ZEE Administration Gabapentin 400 mg 12/15/24 17:00 12/16/24 08:33 Gabapentin 400 Mg Capsule PO 400 mg TID ZEE Administration Glucagon 1 mg 12/15/24 13:58 Glucagon For Inj 1 Mg Vial IM PRN PRN Hypoglycemia Protocol Glucose 15 gm 12/15/24 13:58 Glucose Oral Gel 15 Gm Of Glucse In 37.5 Gm Tube PO PRN PRN Hypoglycemia Protocol Hydroxychloroquine Sulfate 400 mg 12/15/24 21:00 12/15/24 20:56 Hydroxychloroquine Sulfate 200 Mg Tablet PO 400 mg HS ZEE Administration Metronidazole 500 mg in 100 mls @ 100 mls/hr 12/15/24 08:00 12/16/24 08:31 Flagyl 500 Mg/Iso Soln 100 Ml IVPB 100 mls/hr Q8H ZEE Administration Lactated Ringer's 1,000 mls @ 125 mls/hr 12/14/24 23:40 12/16/24 08:37 Lr - Lactated Ringers Iv IV CONT Not Given .Q8H ZEE Ciprofloxacin/Dextrose 200 mls @ 200 mls/hr 12/15/24 02:00 12/16/24 03:21 Cipro 400 Mg/D5w 200 Ml IVPB Infused Q12H ZEE Infusion Dextrose 1,000 mls @ 100 mls/hr 12/15/24 13:58 Dextrose 5% 1,000 Ml IVPB PRN PRN Hypoglycemia Protocol Insulin Aspart 2 - 5 units 12/15/24 17:00 12/16/24 08:36 Insulin Aspart (*Bkc) 100 Units/Ml SUB-Q Not Given TIDWM ZEE Protocol Lidocaine 1 patch 12/15/24 09:00 12/16/24 08:37 Lidocaine 5% Patch TOPICAL 1 patch DAILY ZEE Administration Lisinopril 20 mg 12/15/24 09:00 12/16/24 08:34 Lisinopril 20 Mg Tablet PO 20 mg DAILY ZEE Administration Loratadine 10 mg 12/15/24 09:00 12/16/24 08:33 Loratadine 10 Mg Tablet PO 01/14/25 08:59 10 mg DAILY ZEE Administration Magnesium Oxide 400 mg 12/15/24 09:00 12/16/24 08:33 Magnesium Oxide 400 Mg Tablet PO 400 mg DAILY ZEE Administration Metoprolol Tartrate 12.5 mg 12/15/24 09:00 12/16/24 08:34 Metoprolol Tartrate 12.5 Mg Tablet PO 12.5 mg BID ZEE Administration Montelukast Sodium 10 mg 12/15/24 21:00 12/15/24 20:56 Montelukast Sodium 10 Mg Tablet PO 10 mg HS ZEE Administration Morphine Sulfate 2 mg 12/15/24 06:08 12/15/24 07:12 Morphine Sulfate (*Crx) 2 Mg/Ml Inj IV PUSH 2 mg Q4H PRN Administration Pain Rated 7-10 Pantoprazole Sodium 40 mg 12/15/24 09:00 12/16/24 08:34 Pantoprazole Sodium Iv 40 Mg Vial IV PUSH 40 mg Q12HR ZEE Administration Prednisone 40 mg 12/15/24 08:00 12/16/24 08:33 Prednisone 20 Mg Tablet PO 40 mg DAILY@0800 ZEE Administration Tramadol HCl 50 mg 12/15/24 06:06 Tramadol Hcl (*Crx) 50 Mg Tablet PO Q4H PRN Severe pain Venlafaxine HCl 150 mg 12/15/24 09:00 12/16/24 08:33 Venlafaxine Hcl Xr 75 Mg Cap.Er.24h PO 150 mg QAM ZEE Administration Radiology Results: ITS Impressions Abdomen/Pelvis CT 12/14/24 22:29 IMPRESSION: 1. Colitis involving the midportion of the transverse colon. Clinical correlation and follow-up advised. Ischemia is less likely. 2. Hypodensity in the left kidney with the study most likely a cyst ultrasound evaluation advised. Renal Ultrasound 12/15/24 16:11 IMPRESSION: No definite abnormality seen in both kidneys. The mentioned hypodensity seen on CT is not demonstrated in the left kidney. Follow-up advised. Labs Labs: Laboratory Results - last 24 hr 12/15/24 12/15/24 12/16/24 16:35 20:29 06:36 WBC 17.7 H RBC 3.74 L Hgb 10.8 L Hct 35.6 L MCV 95.2 MCH 28.9 MCHC 30.3 L RDW 17.0 H Plt Count 302 MPV 10.4 Sodium 135 L Potassium 3.7 Chloride 102 Carbon Dioxide 28 Anion Gap 5 BUN 7 D Creatinine 0.55 L Estim Creat Clear Calc 160 Estimated GFR > 60 Glucose 161 H POC Capillary Glucose 279 H 206 H Calcium 8.5 Total Bilirubin 0.7 AST 24 ALT 47 H Alkaline Phosphatase 50 Total Protein 6.0 L Albumin 3.5 12/16/24 07:41 WBC RBC Hgb Hct MCV MCH MCHC RDW Plt Count MPV Sodium Potassium Chloride Carbon Dioxide Anion Gap BUN Creatinine Estim Creat Clear Calc Estimated GFR Glucose POC Capillary Glucose 174 H Calcium Total Bilirubin AST ALT Alkaline Phosphatase Total Protein Albumin Quality VTE Prophylaxis VTE prophylaxis: mechanical ordered
[2024-12-16 11:58] LABS: Glucose Point of Care 345 mg/dl (65-105)
[2024-12-16] MEDS: INSULIN ASPART (*BKC) 100 UNITS/ML SUB-Q ×2 (12:30→17:04)
--- NOTE | 2024-12-16 16:32 | WPDGIPROGNO ---
Progress Note: A&P Assessment and Plan (1) Colitis: Code(s): K52.9 - Noninfective gastroenteritis and colitis, unspecified Status: Acute Assessment and Plan: this is clinically better no more diarrhea and pain much better advance diet on abx hopefully home tomorrow (2) Diabetes mellitus, insulin dependent (IDDM), uncontrolled: Status: Acute Assessment and Plan: also noted that she is on high dose steroid to treat autoimmune condition (3) Hypertension: Qualifiers: Hypertension type: unspecified Qualified Code(s): I10 - Essential (primary) hypertension Code(s): I10 - Essential (primary) hypertension Status: Acute (4) Autoimmune disease: Code(s): M35.9 - Systemic involvement of connective tissue, unspecified Status: Acute Assessment and Plan: she is on Rituxan, methotrexate and prednisone (5) JEREMY on CPAP: Code(s): G47.33 - Obstructive sleep apnea (adult) (pediatric) Status: Chronic Assessment and Plan: Continue CPAP on home settings (6) Immunocompromised: Code(s): D84.9 - Immunodeficiency, unspecified Status: Acute Assessment and Plan: due to medications that she is using Time Spent With Patient Time with patient: 25 - 35 minutes Subjective Date/time seen: 12/16/24 16:32 Interval history: no diarrhea since admission, pain is much better and eating more Review of Systems Review of Systems: All systems reviewed & are unremarkable except as noted in HPI and below Exam Const: General: comfortable and no acute distress Other: obese HENMT: Face/Nose/Sinus: Normal nares present Eyes: General: appearance normal, both eyes and all related structures Neck: Neck: supple Resp: Auscultation: clear to auscultation bilaterally Cardio: Rate: regular rate Rhythm: regular rhythm GI: Inspection: non-distended GI Palp: Yes Soft to palpation, Yes Tenderness to palpation present (GI) (mild ttp in lower abdomen, no rebound) and No Guarding due to palpation present (GI) Auscultation: normal bowel sounds Skin: General skin exam: normal color Neuro: Speech: normal speech Motor exam (neuro): 5/5 motor strength present throughout Extrem: General: pedal edema Psych: Mental Status: mental status grossly normal Objective Data Vital Signs Vital Signs: Vital Signs - 24 hr 12/15/24 20:00 12/15/24 20:25 12/15/24 20:56 Temperature 97.3 F L Pulse Rate 101 H 98 Respiratory Rate 20 Blood Pressure 163/81 H Pulse Oximetry 96 96 Oxygen Delivery Autopap 12/15/24 22:52 12/16/24 00:02 12/16/24 04:04 Temperature Pulse Rate 100 88 Respiratory Rate Blood Pressure Pulse Oximetry Oxygen Delivery Autopap 12/16/24 04:35 12/16/24 08:00 12/16/24 08:00 Temperature 98.3 F 98.2 F Pulse Rate 90 99 104 H Respiratory Rate 20 20 Blood Pressure 160/85 H 151/84 H Pulse Oximetry 97 96 Oxygen Delivery 12/16/24 08:33 12/16/24 08:34 12/16/24 12:00 Temperature 97.7 F Pulse Rate 103 H 100 Respiratory Rate 20 Blood Pressure 154/91 H Pulse Oximetry 96 Oxygen Delivery Room Air 12/16/24 12:00 12/16/24 16:00 Temperature Pulse Rate 105 H 111 H Respiratory Rate Blood Pressure Pulse Oximetry Oxygen Delivery Intake/Output Intake/Output: Intake & Output 12/13/24 12/14/24 12/15/24 12/16/24 23:59 23:59 23:59 23:59 Intake Total 4646.7 2580 Balance 4646.7 2580 Meds/Results Medications: Active Medications Generic Name Dose Route Start Last Admin Trade Name Freq PRN Reason Stop Dose Admin Acetaminophen 1,000 mg 12/15/24 09:00 12/16/24 08:33 Acetaminophen 500 Mg Tablet PO 1,000 mg BID ZEE Administration Albuterol 2.5 mg 12/15/24 06:06 Albuterol Sulfate Neb 2.5 Mg/3 Ml Inh INHALATION DAILYRT PRN Shortness Of Breath Albuterol 2 puff 12/15/24 06:06 Albuterol Sulfate (*Sp) Aerosol 1 Puff INHALATION Q8H PRN shortness of breath or wheezing Atorvastatin Calcium 20 mg 12/15/24 21:00 12/15/24 20:56 Atorvastatin 20 Mg Tablet PO 20 mg HS ZEE Administration Cyclobenzaprine HCl 10 mg 12/15/24 21:00 12/15/24 20:56 Cyclobenzaprine Hcl 10 Mg Tablet PO 10 mg HS ZEE Administration Dextrose 12.5 gm 12/15/24 13:58 Dextrose 50% 25 Gm/50 Ml Syringe IV PUSH PRN PRN Hypoglycemia Protocol Folic Acid 1 mg 12/15/24 09:00 12/16/24 08:33 Folic Acid 1 Mg Tablet PO 1 mg DAILY ZEE Administration Gabapentin 400 mg 12/15/24 17:00 12/16/24 12:31 Gabapentin 400 Mg Capsule PO 400 mg TID ZEE Administration Glucagon 1 mg 12/15/24 13:58 Glucagon For Inj 1 Mg Vial IM PRN PRN Hypoglycemia Protocol Glucose 15 gm 12/15/24 13:58 Glucose Oral Gel 15 Gm Of Glucse In 37.5 Gm Tube PO PRN PRN Hypoglycemia Protocol Hydroxychloroquine Sulfate 400 mg 12/15/24 21:00 12/15/24 20:56 Hydroxychloroquine Sulfate 200 Mg Tablet PO 400 mg HS ZEE Administration Metronidazole 500 mg in 100 mls @ 100 mls/hr 12/15/24 08:00 12/16/24 09:31 Flagyl 500 Mg/Iso Soln 100 Ml IVPB Infused Q8H ZEE Infusion Ciprofloxacin/Dextrose 200 mls @ 200 mls/hr 12/15/24 02:00 12/16/24 12:32 Cipro 400 Mg/D5w 200 Ml IVPB 200 mls/hr Q12H ZEE Administration Dextrose 1,000 mls @ 100 mls/hr 12/15/24 13:58 Dextrose 5% 1,000 Ml IVPB PRN PRN Hypoglycemia Protocol Insulin Aspart 2 - 5 units 12/15/24 17:00 12/16/24 12:30 Insulin Aspart (*Bkc) 100 Units/Ml SUB-Q 4 units TIDWM ZEE Administration Protocol Insulin Glargine 30 units 12/17/24 09:00 Insulin Glargine (*Bkc) 100 Units/Ml 0.2 units/kg (30 units) SUB-Q DAILY ZEE Lidocaine 1 patch 12/15/24 09:00 12/16/24 08:37 Lidocaine 5% Patch TOPICAL 1 patch DAILY ZEE Administration Lisinopril 20 mg 12/15/24 09:00 12/16/24 08:34 Lisinopril 20 Mg Tablet PO 20 mg DAILY ZEE Administration Loratadine 10 mg 12/15/24 09:00 12/16/24 08:33 Loratadine 10 Mg Tablet PO 01/14/25 08:59 10 mg DAILY ZEE Administration Magnesium Oxide 400 mg 12/15/24 09:00 12/16/24 08:33 Magnesium Oxide 400 Mg Tablet PO 400 mg DAILY ZEE Administration Metoprolol Tartrate 12.5 mg 12/15/24 09:00 12/16/24 08:34 Metoprolol Tartrate 12.5 Mg Tablet PO 12.5 mg BID ZEE Administration Montelukast Sodium 10 mg 12/15/24 21:00 12/15/24 20:56 Montelukast Sodium 10 Mg Tablet PO 10 mg HS ZEE Administration Morphine Sulfate 2 mg 12/15/24 06:08 12/15/24 07:12 Morphine Sulfate (*Crx) 2 Mg/Ml Inj IV PUSH 2 mg Q4H PRN Administration Pain Rated 7-10 Pantoprazole Sodium 40 mg 12/15/24 09:00 12/16/24 08:34 Pantoprazole Sodium Iv 40 Mg Vial IV PUSH 40 mg Q12HR ZEE Administration Prednisone 40 mg 12/15/24 08:00 12/16/24 08:33 Prednisone 20 Mg Tablet PO 40 mg DAILY@0800 ZEE Administration Tramadol HCl 50 mg 12/15/24 06:06 Tramadol Hcl (*Crx) 50 Mg Tablet PO Q4H PRN Severe pain Venlafaxine HCl 150 mg 12/15/24 09:00 12/16/24 08:33 Venlafaxine Hcl Xr 75 Mg Cap.Er.24h PO 150 mg QAM ZEE Administration Radiology Results: ITS Impressions Abdomen/Pelvis CT 12/14/24 22:29 IMPRESSION: 1. Colitis involving the midportion of the transverse colon. Clinical correlation and follow-up advised. Ischemia is less likely. 2. Hypodensity in the left kidney with the study most likely a cyst ultrasound evaluation advised. Renal Ultrasound 12/15/24 16:11 IMPRESSION: No definite abnormality seen in both kidneys. The mentioned hypodensity seen on CT is not demonstrated in the left kidney. Follow-up advised. Labs Labs: Laboratory Results - last 24 hr 12/15/24 12/15/24 12/16/24 16:35 20:29 06:36 WBC 17.7 H RBC 3.74 L Hgb 10.8 L Hct 35.6 L MCV 95.2 MCH 28.9 MCHC 30.3 L RDW 17.0 H Plt Count 302 MPV 10.4 Sodium 135 L Potassium 3.7 Chloride 102 Carbon Dioxide 28 Anion Gap 5 BUN 7 D Creatinine 0.55 L Estim Creat Clear Calc 160 Estimated GFR > 60 Glucose 161 H POC Capillary Glucose 279 H 206 H Calcium 8.5 Total Bilirubin 0.7 AST 24 ALT 47 H Alkaline Phosphatase 50 Total Protein 6.0 L Albumin 3.5 12/16/24 12/16/24 07:41 11:44 WBC RBC Hgb Hct MCV MCH MCHC RDW Plt Count MPV Sodium Potassium Chloride Carbon Dioxide Anion Gap BUN Creatinine Estim Creat Clear Calc Estimated GFR Glucose POC Capillary Glucose 174 H 345 H Calcium Total Bilirubin AST ALT Alkaline Phosphatase Total Protein Albumin
[2024-12-16 16:34] LABS: Glucose Point of Care 351 mg/dl (65-105)
[2024-12-16] MEDS: ATORVASTATIN 20 MG TABLET PO (20:42)
[2024-12-16] MEDS: MONTELUKAST SODIUM 10 MG TABLET PO (20:42)
[2024-12-16] MEDS: CYCLOBENZAPRINE HCL 10 MG TABLET PO (20:42)
[2024-12-16] MEDS: HYDROXYCHLOROQUINE SULFATE 200 MG TABLET 400 MG PO (20:42)
[2024-12-16] MEDS: INSULIN ASPART (*BKC) 100 UNITS/ML 6 UNITS SUB-Q (21:37)
[2024-12-16 21:50] LABS: Glucose Point of Care 280 mg/dl (65-105)
[2024-12-17] VITALS (9 sets, daily range): BP systolic 146–175; BP diastolic 67–97; PULSE 88–110; RESP 16–18; TEMP 36.2–36.7; O2SAT 95–99
[2024-12-17] MEDS: CIPROFLOXACIN 400 MG/D5W 200ML 200 ML 200 MG IVPB (01:06)
[2024-12-17 05:59] LABS: Hematocrit 38.5 % (37.0-47.0); Hemoglobin 11.7 g/dL (12.0-15.0); Mean Corpuscular HGB Conc 30.4 g/dl (32-36); Mean Corpuscular Hemoglobin 28.7 pg (26-34); Mean Corpuscular Volume 94.4 fl (80-100); Mean Platelet Volume 10.1 fl (7.4-10.4); Platelet Count Result 347 k/mm3 (150-375); Red Blood Count 4.08 M/mm3 (4.2-5.4); Red Cell Distribution Width 16.9 % (11.5-14.5); White Blood Count 17.3 K/mm3 (4.5-10.0)
[2024-12-17 06:11] LABS: Alanine Aminotransferase 57 U/L (6-35); Albumin Level 4.1 g/dL (3.5-5.1); Alkaline Phosphatase 53 U/L (38-126); Anion Gap 8 mmol/L (4-12); Aspartate Amino Transferase 33 U/L (14-36); Bilirubin,Total 0.5 mg/dL (0.2-1.3); Blood Urea Nitrogen 10 mg/dL (7-17); Calcium 9.2 mg/dL (8.4-10.2); Carbon Dioxide 31 mmol/L (22-30); Chloride 97 mmol/L (98-107); Estimated CRCL calculation 138 ml/min; Estimated Glomerular Filt Rate > 60; Glucose 172 mg/dL (65-110); Potassium 3.7 mmol/L (3.4-5.0); Sodium 136 mmol/L (137-145)
[2024-12-17 07:59] LABS: Glucose Point of Care 167 mg/dl (65-105)
[2024-12-17] MEDS: GABAPENTIN 400 MG CAPSULE PO ×2 (08:50→12:03)
[2024-12-17] MEDS: PANTOPRAZOLE SODIUM IV 40 MG VIAL IV PUSH (08:50)
[2024-12-17] MEDS: VENLAFAXINE HCL XR 75 MG CAP.ER.24H 150 MG PO (08:50)
[2024-12-17] MEDS: LORATADINE 10 MG TABLET PO (08:50)
[2024-12-17] MEDS: ACETAMINOPHEN 500 MG TABLET 1000 MG PO (08:50)
[2024-12-17] MEDS: predniSONE 20 MG TABLET 40 MG PO (08:50)
[2024-12-17] MEDS: MAGNESIUM OXIDE 400 MG TABLET PO (08:50)
[2024-12-17] MEDS: FOLIC ACID 1 MG TABLET PO (08:50)
[2024-12-17] MEDS: lisinopriL 20 MG TABLET PO (08:50)
[2024-12-17] MEDS: metroNIDAZOLE 500 MG/ISO 100ML 500 MG/100 ML BAG 100 MG IVPB (08:51)
[2024-12-17] MEDS: LIDOCAINE 5% PATCH 1 PATCH TOPICAL (08:51)
[2024-12-17] MEDS: METOPROLOL TARTRATE 12.5 MG TABLET PO (08:51)
[2024-12-17] MEDS: INSULIN GLARGINE (*BKC) 100 UNITS/ML 30 UNITS SUB-Q (08:55)
[2024-12-17 09:12] LABS: Magnesium 1.9 mg/dL (1.6-2.3)
[2024-12-17 11:30] LABS: Glucose Point of Care 233 mg/dl (65-105)
[2024-12-17] MEDS: POTASSIUM CHLORIDE 20 MEQ ER TABLET 40 MEQ PO (12:03)
[2024-12-17] MEDS: INSULIN ASPART (*BKC) 100 UNITS/ML SUB-Q (12:04)
--- NOTE | 2024-12-17 13:44 | P.DS_ITS ---
DS: Admitting Diagnosis Discharge Date 12/17/2024 Admitting Diagnosis colitis abnormal finding on diagnostic imaging of left kidney DM HTN Autoimmune disease JEREMY DS: Discharge Diagnosis Discharge Diagnosis (1) Colitis: Code(s): K52.9 - Noninfective gastroenteritis and colitis, unspecified Status: Acute (2) Abnormal finding on diagnostic imaging of left kidney: Code(s): R93.422 - Abnormal radiologic findings on diagnostic imaging of left kidney Status: Acute (3) Diabetes mellitus, insulin dependent (IDDM), uncontrolled: Status: Acute (4) Hypertension: Qualifiers: Hypertension type: unspecified Qualified Code(s): I10 - Essential (primary) hypertension Code(s): I10 - Essential (primary) hypertension Status: Acute (5) Autoimmune disease: Code(s): M35.9 - Systemic involvement of connective tissue, unspecified Status: Acute (6) JEREMY on CPAP: Code(s): G47.33 - Obstructive sleep apnea (adult) (pediatric) Status: Chronic DS: Summary Hospital Course Reason for hospitalization: colitis abnormal finding on diagnostic imaging of left kidney DM HTN Autoimmune disease JEREMY Hospital Course: 49-year-old female with a past medical history of insulin-dependent type 2 diabetes, hypertension, obstructive sleep apnea, elevated cholesterol, vasculitis, and autoimmune disorder who had multiple admissions to [facility], including pneumonia requiring intubation, difficulty breathing, and 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 Patient not meeting sepsis criteria on admission. CT abdomen pelvis showed colitis involving the midportion of the transverse colon. Ischemia is less likely. Patient started on IV antibiotics and placed on bowel rest. GI was consulted and patient is to follow-up in the outpatient setting if symptoms persist to repeat colonoscopy. Throughout admission patient had her diet advanced and was tolerating a low-fat diet at time discharge denying any nausea vomiting or increased abdominal pain. At time of discharge patient was transition to p.o. antibiotics to complete course for colitis. Patient's CT abdomen pelvis also showed a hypodensity in the left kidney. A renal ultrasound was obtained and was unremarkable. Patient continued to have good urine output and BUN/creatinine remains within normal limits. Throughout admission patient was noted to be tachycardic. Of note this appears chronic from prior admission back in October. EKG showed sinus tachycardia with no signs of ischemia. Patient denies any chest pain or feelings of palpitations as well as dizziness and lightheadedness. She was supposed to be on metoprolol at home however her prescription was not refilled. Resumed patient's home metoprolol during admission and heart rates were better controlled. Discussed with her prior to discharge that she is to follow up with her primary care provider about the metoprolol dose as she is still intermittently tachycardic with exertion. She stated understanding. During admission patient was on a lower insulin dosage given that she was on a well controlled diabetic diet. Her glucose levels were fairly well controlled during admission. On discharge she states that she will continue her home insulin as prescribed but does use a Dexcom to closely monitor her glucose levels. She states that her glucose is well controlled on her home dose and she plans to follow-up with her bankman as scheduled. Prior discharge patient had no complaints denying chest pain, shortness a breath, palpitations, nausea/vomiting, and abdominal pain. Patient discharged home with family in a stable condition. She is to follow up with her primary care provider in 1 week and her specialist as scheduled. Status at Discharge Functional status at discharge: independent ambulation Time Spent with Patient Time attestation: Total time spent providing and/or coordinating discharge services: Time spent: Greater than 30 minutes Exam Narrative: AF HR 100 RR 20 SpO2 96 BP 154/91 General: female in no acute respiratory distress who is nontoxic appearing, lying semi recumbent in bed. HEENT: Normocephalic. Atraumatic. Extraocular movement intact. Sclera clear and anicteric. No facial asymmetry. Chest: Lungs are clear to auscultation bilaterally. No wheezes or crackles. CV: Heart was regular rate and rhythm. S1-S2. No murmurs, gallops, or rubs. Abd: Abdomen was soft. Nontender. Nondistended. Positive bowel sounds. Ext: No clubbing, cyanosis, or edema. DP pulses bilaterally. Neuro: Patient is alert and oriented x4. Speech is clear. DS: Data Data Completed and Pending Completed studies during hospitalization: renal us abdomen/pelvis ct Labs on day of discharge: Labs from last 24 hours 12/17/24 12/17/24 12/17/24 11:16 07:55 05:49 WBC 17.3 H RBC 4.08 L Hgb 11.7 L Hct 38.5 MCV 94.4 MCH 28.7 MCHC 30.4 L RDW 16.9 H Plt Count 347 MPV 10.1 Sodium 136 L Potassium 3.7 Chloride 97 L Carbon Dioxide 31 H Anion Gap 8 BUN 10 Creatinine 0.65 L Estim Creat Clear Calc 138 Estimated GFR > 60 Glucose 172 H POC Capillary Glucose 233 H 167 H Calcium 9.2 Magnesium 1.9 Total Bilirubin 0.5 AST 33 ALT 57 H Alkaline Phosphatase 53 Total Protein 7.0 Albumin 4.1 12/16/24 12/16/24 20:52 16:31 WBC RBC Hgb Hct MCV MCH MCHC RDW Plt Count MPV Sodium Potassium Chloride Carbon Dioxide Anion Gap BUN Creatinine Estim Creat Clear Calc Estimated GFR Glucose POC Capillary Glucose 280 H 351 H Calcium Magnesium Total Bilirubin AST ALT Alkaline Phosphatase Total Protein Albumin Preliminary micro results at discharge 12/14/24 23:54 Blood Culture - Preliminary Blood 12/14/24 23:54 Blood Culture - Preliminary Blood Discharge Plan Discharge Attending physician on discharge: Sushant Estrada Discharging Clinician: Debora Zepeda Anticipated Discharge Date/Time: 12/17/24 12:37 Patient Disposition: Home Activity: as tolerated Diet: as tolerated and diabetic Discharge Instructions: Discharge disposition: Patient admitted to the hospital for nausea/vomiting and diarrhea, diagnosed with colitis Evaluated by GI during admission Follow up in the office as outpatient if symptoms persist will consider repeat colonoscopy at that time Take medications as prescribed Ciprofloxacin course to be completed on 12/24 Flagyl course to be completed on 12/24 Attached is information on these medications During admission patient was noted to have continued tachycardia Resumed patient's metoprolol 12.5 mg twice a day, attached is information on this medication Continue this medication as prescribed and follow-up with your primary care provider Monitor blood pressures Take caution while standing, rising, or moving Change positions slowly taking a break between each position change If you standing feel dizzy sit back down and take a break Closely monitor glucose levels, continue dexcom use Follow up with primary care provider in regards to insulin Encouraged to continue with yearly vaccinations Return to the emergency department if he developed sudden shortness of breath, chest pain, nausea, vomiting, upset stomach or intractable diarrhea Return to the emergency department if you develop fever greater than 101.5 Follow-up with the primary care physician within 1-2 weeks Thank you for [facility] for your healthcare needs Patient Instructions: Antibiotic Form, Ciprofloxacin (By mouth), Metoprolol (By mouth), Metronidazole (By mouth), Colitis (ED) Patient Language: Thai Stand Alone Forms: General Discharge Information Follow-up/Referrals: MichaelLynn Burrows [Other] - 1 Week Discharge Medications: New ciprofloxacin HCl 500 mg tablet 500 mg PO Q12H Qty: 14 0RF metronidazole 500 mg tablet 500 mg PO Q8H 7 Days Qty: 21 0RF Continued atorvastatin 20 mg tablet 20 mg PO HS Rx Instructions: Has been off since June due PCP order. montelukast 10 mg tablet 10 mg PO HS loratadine [Claritin] 10 mg Tablet 10 mg PO DAILY venlafaxine 150 mg capsule,extended release 24hr 150 mg PO QAM Lorenza Flood U-100 Insulin 100 unit/mL insulin pen 1 sliding scale dose SUBCUT AC Rx Instructions: For blood sugar of 150 or less administer 18 units for blood sugar per 25 points greater than 150 administer 1 unit per 25 over Mounjaro 5 mg/0.5 mL pen injector 10 mg SUBCUT WEEKLY Patient Comments: on Saturdays tramadol 50 mg Tablet 50 mg PO Q4H PRN (Reason: Severe pain) Qty: 15 0RF lidocaine 5 % adhesive patch,medicated 1 patch topical DAILY Qty: 30 0RF Rx Instructions: leave on most painful area for up to 12 hrs metoprolol tartrate 25 mg tablet 12.5 mg PO BID 30 Days Qty: 30 0RF albuterol sulfate 2.5 mg /3 mL (0.083 %) solution for nebulization 2.5 mg inhalation DAILY PRN (Reason: Shortness Of Breath) cetirizine [All Day Allergy (cetirizine)] 10 mg Tablet 10 mg PO DAILY ergocalciferol (vitamin D2) 50,000 unit PO .COMPLEX Patient Comments: Patient takes on Wednesdays and Sundays Rx Instructions: 50,000 units orally twice a week; prednisone 20 mg tablet 40 mg PO DAILY@0800 cyclobenzaprine 10 mg tablet 10 mg PO HS Patient Comments: patient takes in the evening lisinopril 20 mg tablet 20 mg PO DAILY methotrexate sodium 2.5 mg tablet 12.5 mg PO WEEKLY Rx Instructions: on diclofenac sodium 75 mg tablet,delayed release (DR/EC) 75 mg PO BID folic acid 1 mg tablet 1 mg PO DAILY hydroxychloroquine 200 mg tablet 400 mg PO HS insulin glargine [Lantus Solostar U-100 Insulin] 100 unit/mL (3 mL) insulin pen 45 unit SUBCUT BID Patient Comments: in the morning and evening pantoprazole 40 mg tablet,delayed release (DR/EC) 40 mg PO DAILY Diurex 162.5-50 mg tablet 1 tablet PO DAILY magnesium 200 mg tablet 400 mg PO DAILY potassium 99 mg tablet 99 mg PO HS famotidine [Acid Controller] 20 mg tablet 20 mg PO HS acetaminophen 500 mg Tablet 1,000 mg PO BID albuterol sulfate 90 mcg/actuation HFA aerosol inhaler 2 puff INHALATION Q8H PRN (Reason: shortness of breath or wheezing) Changed gabapentin 300 mg capsule 400 mg PO TID Qty: 30 0RF Discontinued sulfamethoxazole-trimethoprim [Bactrim DS] 800-160 mg tablet 1 tablet PO 3XW Patient Comments: Thursday, Thursday, Thursday Date of admission: 12/14/24 23:39 Primary Care Provider: MichaelLynn Burrows Admitting Provider: Frank Monk Attending physician on admission: Debora Zepeda Condition: Stable Hospitalist MIPS Heart Failure (Exclusion) Patient has history of Heart Transplant or Left Ventricular Assistive Device?: No IF YES, STOP HERE Heart Failure (Qualifier) Patient has current or prior documentation of LVEF less than or equal to 40%, or mod/servere depressed LVSF?: No IF NO, STOP HERE
== END 2024-12-17 16:15 | disposition home or self-care (01) | DRG 392 ==
LOC: ANHED 23:50 → ANH3MEDSUR 12-15 00:32
PROVIDERS: Student in an Organized Health Care Education/Training Program; Admitting Provider General Practice; Emergency Provider Emergency Medicine; Visit Provider Student in an Organized Health Care Education/Training Program
DX: K52.9 Noninfective gastroenteritis and colitis, unspecified (principal); Z68.43 Body mass index [BMI] 50.0-59.9, adult; K92.1 Melena; D84.9 Immunodeficiency, unspecified; E11.9 Type 2 diabetes mellitus without complications; E86.0 Dehydration; E66.01 Morbid (severe) obesity due to excess calories; F32.A Depression, unspecified; G47.33 Obstructive sleep apnea (adult) (pediatric); I10 Essential (primary) hypertension; I77.6 Arteritis, unspecified; Z79.4 Long term (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; Z99.89 Dependence on other enabling machines and devices; E78.00 Pure hypercholesterolemia, unspecified; Z79.85 Long-term (current) use of injectable non-insulin antidiabetic drugs; Z20.822 Contact with and (suspected) exposure to COVID-19
CPT/HCPCS: 36415; 74177; 76775; 80053; 81001; 81025; 82948; 83605; 83690; 83735; 85025; 85027; 85610; 85730; 86850; 86900; 86901; 87040; 87637; 93005; 96361; 96365; 96375; 99285; A9270; J0696; J0744; J1171; J1815; J1836; J2270; J2405; J2470; J7030; J7120; J7512; Q9967

== ENCOUNTER 2024-12-19 00:44 | Emergency (ER) | payer OTHER, SELFPAY ==
[2024-12-19] VITALS (11 sets, daily range): BP systolic 185–197; BP diastolic 100–110; PULSE 91–119; RESP 15–21; TEMP 36.4; O2SAT 94–100
--- OUTSIDE RECORDS SUMMARY | 2024-12-19 00:45 | XMS_ITS | Clinical Summary ---
Author Organization [facility] Address [address] [place] [address] Phone Care Team Providers Care Baked And Graphite Inspector Name Role Phone Masoud Hayes MD Primary [...] Tab by mouth daily. 90 Tab 1 03/22/20 12 Active cetirizine (ZyrTEC) 10 mg tablet Take 1 Tablet (10 mg) by mouth daily. 30 Tablet 08/13/2022 2:47 PM CONSERVATION SCIENCE TEACHER 08/13/19 23 Active amLODIPine (NORVASC) 2.5 mg tablet Take 1 Tablet (2.5 mg) by mouth daily in the morning. 90 Tablet 05/29/2023 5:55 PM CDT 05/29/20 23 Active cyclobenzaprin e (FLEXERIL) 5 mg Tablet TAKE 1-2 TABLETS BY MOUTH NIGHTLY TO REDUCE MUSCLE CRAMPS 60 Tablet 3 07/10/2023 3:38 PM CONSERVATION SCIENCE TEACHER 06/23/20 23 Active hydroxychloroq uine (PLAQUENIL) 200 mg tablet TAKE 2 TABLETS BY MOUTH ONCE DAILY 60 Tablet 3 07/10/2023 3:38 PM CONSERVATION SCIENCE TEACHER 06/23/20 23 Active mycophenolate mofetil (CELLCEPT) 500 mg tablet TAKE 3 TABLETS BY MOUTH TWICE DAILY 180 Tablet 4 07/10/2023 3:38 PM CONSERVATION SCIENCE TEACHER 06/23/20 23 Active insulin glargine (LANTUS) 100 unit/mL pen syringe Use what insurance will cover either lantus, basaglar or semglee: 40 units AM and 40 units before dinnertime; MDD is 100 units. 30 mL 3 11/19/2023 11:05 AM CDT 11/18/19 24 Active traMADoL (ULTRAM) 50 mg tablet Take 1 tablet (50 mg total) by mouth every 8 (eight) hours as needed for pain 30 Tablet 07/13/2024 12:19 PM CONSERVATION SCIENCE TEACHER 04/27/20 24 Active methylPREDNISo lone (Medrol, Marvel,) 4 mg Tablets, Dose Pack Take by oral route as directed per package instructions on package for 6 days. 21 Tablet 04/29/2024 5:14 PM CDT 04/29/20 24 Active venlafaxine (EFFEXOR XR) 150 mg Extended Release 24 hour capsule Take 150 mg by mouth daily. 05/01/20 23 Active atorvastatin (LIPITOR) 20 mg tablet Take 20 mg by mouth daily. 08/09/19 23 Active diclofenac sodium (VOLTAREN) 75 mg Tablet, Delayed Release (E.C.) Take 75 mg by mouth 2 times daily. 12/29/19 24 Active ergocalciferol (VITAMIN D2) 50,000 unit capsule Take 50,000 Units by mouth. 04/28/20 23 Active fluticasone propionate (FLONASE) 50 mcg/spray Zearing, Suspension nasal inhaler Administer 2 Sprays in each nostril 1 time daily as needed. 02/24/20 23 Active folic acid (FOLVITE) 1 mg tablet 05/03/20 24 Active gabapentin (NEURONTIN) 300 mg capsule 05/03/20 24 Active glucagon (BAQSIMI) 3 mg/spray Zearing, Non-Aerosol Administer 1 Zearing in each nostril. 11/17/19 24 Active insulin glargine-yfgn 100 unit/mL pen syringe Inject 20 AM and 30 units PM daily; MDD is 70 units. 02/17/20 Active Lyletitia UnderwoodPen U-100 Insulin 100 unit/mL Insulin Pen Inject 15 units before meals plus sliding scale 1 unit for every 25 points >150 ; MDD is 55 units. 02/17/20 Active methotrexate (RHEUMATREX) 2.5 mg Tablet 05/03/20 24 Active montelukast (SINGULAIR) 10 mg tablet Take 1 Tablet by mouth late in the day. 04/28/20 23 Active pantoprazole (PROTONIX) 40 mg Tablet, Delayed Release (E.C.) 04/19/20 24 Active medroxyPROGEST ERone (Provera) 10 mg tablet Take 1 Tablet (10 mg) by mouth from the 1st to the 10th of the month. 30 Tablet 2 05/25/2024 1:28 PM CDT 05/17/20 24 Active predniSONE (DELTASONE) 10 mg tablet Take 4 Tablets (40 mg) by mouth daily. 120 Tablet 3 09/11/2024 3:51 PM CONSERVATION SCIENCE TEACHER 06/17/20 24 Active venlafaxine (EFFEXOR XR) 150 mg Extended Release 24 hour capsule Take 1 capsule (150 mg total) by mouth daily 30 Capsule 07/13/2024 12:19 PM CONSERVATION SCIENCE TEACHER 07/10/20 24 Active tirzepatide (Mounjaro) 10 mg/0.5 mL Pen Injector Inject 10 mg under the skin every 7 days 2 mL 3 09/29/2024 4:41 PM CONSERVATION SCIENCE TEACHER 07/13/20 24 Active isosorbide dinitrate (ISORDIL) 5 mg tablet Take 1 Tablet (5 mg) by mouth 3 times daily. 90 Tablet 10/10/2024 4:41 PM CDT 10/09/19 25 Active tirzepatide (Mounjaro) 12.5 mg/0.5 mL Pen Injector Inject 0.5 mL (12.5 mg total) under the skin every 7 days 2 mL 3 10/20/2024 10:04 AM CDT 10/13/19 25 Active budesonide-for moteroL (SYMBICORT) 160-4.5 mcg/actuation HFA Aerosol Inhaler Inhale 2 puffs by mouth 2 (two) times a day. Rinse mouth with water after use. Do not swallow. 10.2 Gram 11 11/02/2024 2:13 PM CDT 11/02/19 25 Active inhalational spacing device (EasiVent Holding Chamber) Spacer USE WITH INHALER. 1 Each 11/02/2024 2:13 PM CDT 11/02/19 25 Active sulfamethoxazo le-trimethopri m (BACTRIM DS) 800-160 mg tablet Take 1 tablet (160 mg of trimethoprim total) by mouth 3 (three) times a week 12 Tablet 1 11/02/2024 2:13 PM CDT 11/02/19 25 Active traMADol (ULTRAM) 50 mg tablet Take 1 tablet (50 mg total) by mouth every 8 (eight) hours as needed for pain. 30 Tablet 11/18/2024 12:24 PM CDT 11/18/19 25 Active lidocaine (LIDODERM) 5 % Adhesive Patch, Medicated Apply 1 patch topically daily; leave on most painful area for up to 12 hrs 30 Patch 12/09/2024 12:37 PM CDT 12/09/19 25 Active metoprolol tartrate (LOPRESSOR) 25 mg tablet Take 0.5 Tablets (12.5 mg) by mouth 2 times daily. 30 Tablet 12/18/2024 3:18 PM CDT 12/18/19 25 Active ciprofloxacin HCl (CIPRO) 500 mg tablet Take 1 Tablet (500 mg) by mouth every 12 hours for 7 days. 14 Tablet 12/18/2024 3:18 PM CDT 12/18/19 25 025 Active metroNIDAZOLE (FLAGYL) 500 mg tablet Take 1 Tablet (500 mg) by mouth every 8 hours for 7 days. 21 Tablet 12/18/2024 3:18 PM CDT 12/18/19 25 025 Active metoprolol tartrate (LOPRESSOR) 25 mg tablet Take 0.5 Tablets (12.5 mg) by mouth 2 times daily. 30 Tablet 10/10/2024 4:41 PM CDT 10/09/19 25 025 Discontinu ed(Reorder ) doxycycline hyclate (VIBRAMYCIN) 100 mg capsule Take 1 Capsule (100 mg) by mouth 2 times daily for 10 days. 20 Capsule 11/30/2024 4:18 PM CDT 12/01/19 25 025 Active Problems Patient Care Coordination No te Formatting of this note migh t be different from the original. Insulation Technician: Dr. 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 Not on file Not on file Not on file Last Filed Vital Signs Vital Sign Reading Time Taken Comments Blood Pressure 128/90 06/21/2024 10:51 AM CONSERVATION SCIENCE TEACHER Pulse 82 03/22/2012 2:23 PM CDT Temperature - - Respiratory Rate 18 03/22/2012 2:23 PM CDT Oxygen Saturation 97% 03/22/2012 1:51 PM CDT Inhaled Oxygen Concentration - - Weight 141.2 kg (311 lb 3.2 oz) 024 10:51 AM CONSERVATION SCIENCE TEACHER Height 167.6 cm (5' 6 ) 05/17/2024 11:2 7 AM CDT Body Mass Index 50.23 05/17/2024 11:27 AM CDT Plan of Treatment Upcoming Encounters Date Type Department Care Team (Late st Contact Info) Description 12/29/2024 11:30 AM CDT Office Visit [facility] CRIME SCENE TECHNICIAN [facility] [address] [address] [place] [phone] Kendrick Teague MD [facility] [address] [place] [address] Health Maintenance Due Date Last [...] 05/17/2029 05/17/2024 COLORECTAL SCREENING 04/02/2032 04/02/2022, 04/02/20 Colorectal Cancer Screening 04/02/2032 Procedures Procedure Name Priority Date/Time Associated Diagnosis Comments CERV/VAG CYTO AGE BASED SCREEN PAP Routine 05/17/2024 4:26 PM CDT Screening for malignant neoplasm of cervix from Last 3 Months or Most Recently Relevant to Health Maintenance Results * CERV/VAG CYTO AGE BASED SCREEN PAP (05/17/2024 4:26 PM CDT) COMMENT (PAP): [facility] [place] Comment: This order for age-based cervical cancer and STI screening follows ACOG guidelines(PB 168, 140, PGC735). See individual assays for performing site location. CLINICAL INFORMATION [facility] [place] Comment:None given LAST MENSTRUAL PERIOD [facility] [place] Comment:10/02/2023 PREV PAP: [facility] [place] Comment:NONE GIVEN PREV BX: [facility] [place] Comment:NONE GIVEN SOURCE [facility] [place] Comment:Endocervix ADEQUACY: [facility] [place] Comment: Satisfactory for evaluation. Endocervical/transformation zone component absent. PAP INTERP [facility] [place] Comment: Cytology Results: Negative for intraepithelial lesion or malignancy. COMMENT (PAP TEST) [facility] [place] Comment: This Pap test has been evaluated with computer assisted technology. CHIP UNLOADER: Ni Ramirez Comment: MEF, CT(ASCP) CT screening location: [place] [address] [place] [address] EXPLANATORY NOTE [employer] Ashley Comment: EXPLANATORY NOTE: The Pap is a [...] information. HPV E6/E7 Not Detected Not Detected [employer] [place] Comment: Methodology: Plc Controls Engineer-Mediated Amplification This assay detects E6/E7 viral messenger RNA (mRNA) from 14 high-risk HPV types (16,18,31,33,35,39,45,51,52,56,58,59,66,68). Cervical sources are required for HPV testing. If a vaginal source from a patient who has had a total hysterectomy with removal of cervix was submitted, please contact the testing laboratory for alternative testing options. For additional information, please refer to http://education.[employer]/faq/HDM490v2 (This link if provided for information/ educational purposes only.) Test Performed at: [facility] [address] [place] [address] Torin GUZMAN Genital SWAB OF ENDOCERVIX / Unknown 05/17/2024 4:26 PM CDT 05/18/2024 3:48 AM CDT Kendrick Teague MD PATHOLOGY/CYTOLOGY ORDERABLE S Final Result [facility] [phone] [employer] [address] [place] [address] from Last 3 Months or Most Recently Relevant to Health Maintenance Insurance [employer] [id number] RX [employer] RX Member Subscriber Plan / Payer (Ef fective 2023-Present) Name:Walt Huitron Relation to Subscriber:Self Name:Walt Huitron Subscriber ID:Not on file Payer ID:Not on file Group ID:[id number] Type:RX Commercial Address: [place], [place] RX [employer] PLANS (INTERNAL) [facility] Care Teams Baked And Graphite Inspector Relationship Specialty Start Date End Date Masoud Hayes MD PCP - General Internal Medicine 03/08/12
--- OUTSIDE RECORDS SUMMARY | 2024-12-19 00:46 | XMS_ITS | Encounter Summary ---
Author Organization [facility] Health Address [address] [facility] [place] [address] Care Team Providers Care Online Marketer Name Role Phone Tiffany Cox MD Primary Care Provider Unavailable Kishor Saleh MD Primary Care Provider Encounter Details Date Type Department Care Team (Late st Contact Info) Description 07/03/2023 Lab Requisition [facility] [address] [place] [id number] [place] [id number] [facility] [address] [place] [id number] Social History Tobacco Use Types Packs/Day Years Used Date Smoking Tobacco: Never Assessed Comments Unknown Sex and Gender Information Value Date Recorded Sex Assigned at Not on file Legal Sex Female 4:50 AM CUSTOM FRAMING SPECIALIST Gender Identity Not on file Sexual Orientation Not on file documented as of this encounter Plan of Treatment Not on file documented as of this encounter Visit Diagnoses Not on filedocumented in this encounter Additional Health Concerns Infection Onset Date Last Indicated Resolved Time COVID-19 Under Investigation 08/13/2024 08/13/2024 08/13/2024 11:30 PM CUSTOM FRAMING SPECIALIST documented as of this encounter Care Teams Online Marketer Relationship Specialty Start Date End Date Tiffany Cox MD PCP - General Internal Medicine 05/16/13 07/30/23 Kishor Saleh MD [address] [place] [address] [address] [place] [id number] PCP - General Internal Medicine 07/31/23 documented as of this encounter
--- OUTSIDE RECORDS SUMMARY | 2024-12-19 00:46 | XMS_ITS | Encounter Summary ---
Author Organization [facility] Healthcare Address [address] [place] [id number] Care Team Providers Care Wireless Sales Associate Name Role Phone Ann Serrano MD Unavailable [phone] Lynn Rodriguez MD Primary Care Provider Encounter Details Date Type Department Care Team (Late st Contact Info) Description 11/07/2024 Results Follow-Up [facility] at [address] [address] Karley Rubi, GUEST SERVICE MANAGER [address] [place] [address] [address] [place] [address] XR Chest Pa Lateral 2 Views Social History Tobacco Use Types Packs/Day Years [...] on file Legal Sex Female 11:54 PM GREEN CHAIN OFFBEARER Gender Identity Female 09/19/2020 8:37 AM GREEN CHAIN OFFBEARER Sexual Orientation Straight 09/19/2020 8: 37 AM GREEN CHAIN OFFBEARER documented as of this encounter Plan of Treatment Not on file documented as of this encounter Visit Diagnoses Not on filedocumented in this encounter Additional Health Concerns Infection Onset Date Last Indicated Resolved Time COVID: Suspected 11/07/2024 11/07/2024 11/07/2024 2:20 PM CDT documented as of this encounter Care Teams Wireless Sales Associate Relationship Specialty [place] [address] [id number] [place] [address] PCP - General Internal Medicine 04/06/24 Ann Serrano MD Referring Physician Endocrinology Diabetes & Metabolism 06/08/20 documented as of this encounter
--- OUTSIDE RECORDS SUMMARY | 2024-12-19 00:46 | XMS_ITS | Referral Summary ---
Author Organization [facility] Building A Address [address] [place] [address] Care Team Providers Care Legal Transcriber Name Role Phone Ann Serrano MD Unavailable [phone] Lynn Rodriguez MD Primary Care Provider Encounters Date Type Department Care Team Description 12/13/2024 2:30 PM CDT Office Visit [facility] Medical Group Pulmonary at [address] [place] [phone] Josiah Doan DO Moderate persistent asthma without complication (Primary Dx); Class 3 severe obesity due to excess calories with serious comorbidity and body mass index (BMI) of 45.0 to 49.9 in adult; Chronic hypoxic respiratory failure (HCC); jail 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 user 11/30/2024 3:30 PM CDT Office Visit [facility] Convenient [facility] at [address] [phone] Minnie Huose NP Acute non-recurrent frontal sinusitis (Primary Dx) 11/09/2024 Results Follow-Up [facility] Medical Group Pulmonary at [address] [phone] Josiah Doan DO Pulmonary Function Test - 11/09/2024 7:18 AM CDT - 11/09/2024 11:59 PM CDT Hospital Encounter [facility] Respiratory [address] [place] [address] Severe persistent asthma without complication (HCC) Discharge Disposition: Discharge to home or self care 11/07/2024 Results Follow-Up [facility] at [address] [phone] Karley Rubi, ERIN XR Chest Pa Lateral 2 Views 11/07/2024 2:30 PM CDT Ancillary Procedure [facility] Medical Group Imaging at [address] [phone] Wheezing 11/07/2024 2:00 PM CDT Office Visit [facility] at [address] [phone] Karley Rubi NP Sore throat (Primary Dx); Wheezing; History of asthma 11/01/2024 1:00 PM CDT Office Visit [facility] Group Pulmonary at [address] [place] [address] Josiah Doan DO Severe persistent asthma without complication (HCC) (Primary Dx); Obstructive sleep apnea; Immunosuppression due to drug therapy; Class 3 severe obesity due to excess calories with serious comorbidity and body mass index (BMI) of 45.0 to 49.9 in adult 10/25/2024 Telephone [facility] Endocrinology Metabolism and Lipid [address] [place] [address] [place] [address] Leisa Arenas RN eye exam 10/25/2024 Orders Only [facility] Endocrinology Metabolism and Lipid [address] [place] [address] [place] [phone] Stephenie Cruz MD 10/12/2024 9:00 AM CDT Telemedicine [facility] Endocrinology Metabolism and Lipid [address] [place] [address] [place] [address] Shirley Teixeira PA Uncontrolled type 2 diabetes mellitus with hyperglycemia (HCC) (Primary Dx); Mixed hyperlipidemia; Class 3 severe obesity due to excess calories with serious comorbidity and body mass index (BMI) of 45.0 to 49.9 in adult (HCC); monogram and letter paster (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); jail 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 user 10/07/2024 Ancillary Procedure [facility] [...] 400 each 3 024 Active blood-glucose sensor ([employer] G7 Sensor) deviceIndication s:Uncontrolled type 2 diabetes mellitus with hyperglycemia (HCC),monogram and letter paster (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) Use for [...] NEBULIZER EVERY 6 HOURS NEEDED FOR WHEEZING (WATCHGUARD RECOMMENDS NOT EXCEEDING 4 VIALS/DAY) 150 mL [...] PEN SUBCUTANEOUSLY WEEKLY DIRECTED 2 mL 11 Active Vitamin D2 1,250 mcg (50,000 unit) capsule TAKE 1 CAPSULE BY MOUTH TWICE WEEKLY 26 capsule 3 05/05/2 025 Active lidocaine (LIDODERM) 5 % Apply 1 patch topically daily; leave on most painful area for up to 12 hrs Active ergocalciferol (Vitamin D2) 50,000 unit capsule [...] Active Problems Problem Noted Date Diagnosed Date Chronic hypoxic respiratory failure 12/16/2024 Uncontrolled diabetes mellitus with hyperglycemi a 08/14/2024 Acute hypoxic respiratory failure 08/13/2024 Assessment & Plan (08/26/2024 6:09 PM BOARDMARKER): Recent hospitalization likely for CAP followed by RSV Symptoms resolved Impaired mobility 07/29/2024 jail (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 07/13/2024 monogram and letter paster 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 user 07/13/2024 Assessment & Plan (07/13/2024 12:22 PM BOARDMARKER): - Further complicates diabetes management Need for vaccination 04/06/2024 Assessment & Plan (04/06/2024 4:14 PM CDT): Received pneumonia vaccine today history of pneumonia currently no complaints last bout in 08/2023 Head trauma 09/04/2022 Assessment & Plan (09/04/2022 2:35 PM BOARDMARKER): No signs of neurological abnormality on examination [...] booster Assessment & Plan (06/24/2021 3:28 PM BOARDMARKER): Pito vaccine 10/05/2020 and Moderna booster Jun 2021 Major depressive disorder 04/22/2021 Assessment & Plan (01/06/2024 9:09 AM CDT): Stable on current medication regimen. Assessment & Plan (01/17/2022 10:21 AM CDT): Stable on current medication regimen. Assessment & Plan (07/17/2021 2:07 PM BOARDMARKER): Better controlled on venlafaxine. Assessment & Plan (04/22/2021 8:25 AM CDT): Restart venlafaxine and warned of side effects and call back if any develop or if no improvement. Type 2 diabetes mellitus with hyperlipidemia 06/2020 Assessment & Plan (01/06/2024 9:09 AM CDT): A1c above goal. Will start Mounjaro soon. Continue other medications as directed by her e learning coordinator. Diet exercise discussed. Hopefully may be able to wean prednisone in the near future as well. Assessment & Plan (06/15/2023 10:48 AM BOARDMARKER): She knows that the steroids will exacerbate her hyperglycemia and should be in contact with her e learning coordinator for management. Assessment & Plan (06/08/2023 5:26 PM BOARDMARKER): Poor control of her diabetes prior to this hospitalization and even worse now on prednisone. Follow-up with her e learning coordinator for management. Diet exercise weight loss recommended. Assessment & Plan (01/21/2023 9:50 AM CDT): Blood sugars remain above goal. Hopefully the recent addition of mounjaro will help significantly. Discuss up titration of this and her mealtime insulin with her e learning coordinator. Diet exercise discussed. Check A1c and fasting blood sugar before next visit. Assessment & Plan (08/02/2022 12:16 PM BOARDMARKER): A1c poorly controlled. Importance of diet exercise weight loss discussed at length. Continue her Ozempic and insulin and needs to contact her e learning coordinator soon as possible for guidance on further therapy. Assessment & Plan (01/17/2022 10:22 AM CDT): Patient aware A1c grossly uncontrolled. Must work on diet exercise and weight loss. She has to get back on her insulin and should discuss this today with her e learning coordinator. Risks posed her health with poor glycemic control discussed. Assessment & Plan (07/13/2020 8:34 AM BOARDMARKER): A1c above goal. Importance of diet exercise weight loss discussed. Continue current medication regimen and follow-up with her e learning coordinator as they direct. 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 Unfortunately lab work and skin biopsy inconclusive. Discussed possible rheumatology 2nd opinion here at [facility] and patient will call back if desired. Assessment & Plan (06/15/2023 10:48 AM BOARDMARKER): Certainly making a case for underlying vasculitis [...] condition. Assessment & Plan (06/20/2020 9:35 AM BOARDMARKER): Unclear etiology but I am thinking of [...] tolerated Assessment & Plan (08/26/2024 6:10 PM BOARDMARKER): Body mass index is 49.1 kg/m . BMI Follow-up includes: nutrition counseling, exercise counseling, and education provided. Assessment & Plan (07/13/2024 12:20 PM BOARDMARKER): - Increase Mounjaro to 10 mg weekly [...] tolerated. Assessment & Plan (06/08/2023 5:23 PM BOARDMARKER): Patient is encouraged to lose weight with a combination of caloric reduction and increased exercise. Various strategies discussed. The long-term risks associated with continued morbid obesity discussed. Assessment & Plan (09/04/2022 2:34 PM BOARDMARKER): Patient is encouraged to lose weight with a combination of caloric reduction and increased exercise. Various strategies discussed. The long-term risks associated with continued morbid obesity discussed. Assessment & Plan (08/02/2022 12:16 PM BOARDMARKER): Patient is encouraged to lose weight with [...] discussed. Assessment & Plan (07/13/2020 8:34 AM BOARDMARKER): Patient is encouraged to lose weight with a combination of caloric reduction and increased exercise. Various strategies discussed. The long-term risks associated with continued morbid obesity discussed. Assessment & Plan (06/20/2020 9:35 AM BOARDMARKER): Patient is encouraged to lose weight with a combination of caloric reduction and increased exercise. Various strategies discussed. The long-term risks associated with continued morbid obesity discussed. Assessment & Plan (07/08/2019 8:44 AM BOARDMARKER): Patient is encouraged to lose weight with a combination of caloric reduction and increased exercise. Various strategies discussed. The long-term risks associated with continued morbid obesity discussed. Irregular menses 06/03/2019 Allergic rhinitis 07/05/2018 Assessment & Plan (02/23/2023 1:30 PM CDT): Nasal saline spray (Simply saline, [employer], [place], [place]) 2 second sprays or 2 squeezes into [...] daily Assessment & Plan (07/17/2021 2:07 PM BOARDMARKER): Claritin montelukast. Assessment & Plan (04/22/2021 8:25 AM CDT): Currently using Claritin and montelukast. She has not been trying Flonase as her nose is being to congested. Recommended sinus rinses her using a hot warm shower. Could also try Afrin for few days. Assessment & Plan (07/08/2019 8:43 AM BOARDMARKER): Add montelukast to her Claritin. She struggles with nasal sprays due to chronic congestion. Assessment & Plan (07/05/2018 9:24 AM BOARDMARKER): Try Afrin for 3 days along with [...] mg/dL Assessment & Plan (07/13/2024 12:21 PM BOARDMARKER): - Last LDL 103, TG 308, TC [...] triglycerides. Assessment & Plan (09/12/2023 8:12 PM BOARDMARKER): Continue statin and optimize glycemic control Assessment & Plan (02/16/2023 8:14 PM CDT): Continue statin and optimize glycemic control Assessment & Plan (01/21/2023 9:50 AM CDT): Continue her atorvastatin and work on diet exercise and check lipids and LFTs before next visit. Assessment & Plan (08/02/2022 12:15 PM BOARDMARKER): Well controlled on current therapy and will check a lipid panel and LFTs in 6 months. Assessment & Plan (01/17/2022 10:21 AM CDT): Well controlled on current therapy and will check a lipid panel and LFTs in 6 months. Assessment & Plan (07/17/2021 2:06 PM BOARDMARKER): Well controlled on current therapy and will check a lipid panel and LFTs in 6 months. Assessment & Plan (06/24/2021 3:28 PM BOARDMARKER): Continue statin and optimize glycemic control Assessment & Plan (12/19/2020 7:53 AM CDT): Continue statin and optimize glycemic control Assessment & Plan (07/13/2020 8:34 AM BOARDMARKER): Well controlled on current therapy and will check a lipid panel and LFTs in 6 months. Assessment & Plan (06/08/2020 8:31 AM BOARDMARKER): LDL within goal. Continue statin and optimize glycemic control Assessment & Plan (07/08/2019 8:42 AM BOARDMARKER): Well controlled on current therapy and will check a lipid panel and LFTs in 12 months. Assessment & Plan (09/01/2018 2:22 PM BOARDMARKER): Continue statin, optimize glycemic control Assessment & Plan (07/05/2018 9:23 AM BOARDMARKER): Well controlled on current therapy and will check a lipid panel and LFTs in 6 months. Assessment & Plan (08/26/2017 4:27 PM BOARDMARKER): Start atorvastatin and check lipids and LFTs in 3-4 months. Call back for results. Vitamin D deficiency 07/02/2017 Assessment & Plan (07/13/2024 12:22 PM BOARDMARKER): - Last Vitamin D 42 (12/2023), replete [...] week Assessment & Plan (09/12/2023 8:12 PM BOARDMARKER): Continue long-term supplement Assessment & Plan (02/16/2023 8:14 PM CDT): Continue long-term supplement Assessment & Plan (08/02/2022 12:15 PM BOARDMARKER): Continue current supplementation and check level in 1 year. Assessment & Plan (07/17/2021 2:06 PM BOARDMARKER): Continue current supplementation and check level in 1 year. Assessment & Plan (06/24/2021 3:29 PM BOARDMARKER): Continue long-term supplement Assessment & Plan (12/19/2020 7:53 AM CDT): Continue long-term supplement Assessment & Plan (07/13/2020 8:33 AM BOARDMARKER): Continue current supplementation and check level in 1 year. Assessment & Plan (06/08/2020 8:31 AM BOARDMARKER): Vitamin-D level within goal, continue chronic supplement Assessment & Plan (07/08/2019 8:42 AM BOARDMARKER): Continue current supplementation and check level in 1 year. Assessment & Plan (06/03/2019 8:24 AM CDT): Recently ran out of supplement, so we will restart and check her level today. Also check B12 Assessment & Plan (09/01/2018 2:22 PM BOARDMARKER): Continue supplement Assessment & Plan (07/05/2018 9:23 AM BOARDMARKER): Continue current supplementation and check level in 1 year. Assessment & Plan (08/26/2017 4:26 PM BOARDMARKER): Continue current supplementation and check level in [...] Component Value Date HGBA1C 11.7 07/13/2024 Per [employer], goal A1c is less 7% [...] etc. Assessment & Plan (08/26/2024 6:10 PM BOARDMARKER): Assessment & Plan (07/13/2024 12:20 PM BOARDMARKER): - Diabetes is complicated by hyperlipidemia, hypertension, morbid obesity and chronic steroid use. Uncontrolled. Lab Results Component Value Date HGBA1C 11.7 07/13/2024 Per [employer], goal A1c is less 7% [...] in prescriptions for both Dexcom G7 and Stiki DigitalStyle Silva 3 CGM for olivares checking. Also [...] Return visit 3 months to see the SPRAY MAKER/PA, 6 months to see me. Assessment & [...] Component Value Date HGBA1C 12.5 11/17/2023 Per [employer], goal A1c is less 7% [...] that I am available via phone or Boomsethart if they have any concerns for hypo/hyperglycemia, medication refills, etc. Assessment & Plan (11/18/2023 8:23 AM CDT): - Diabetes is complicated by HTN, HLD, steroid use, hyperglycemia and obesity. Uncontrolled. Lab Results Component Value Date HGBA1C 12.5 11/17/2023 Per [employer], goal A1c is less 7% without significant hypoglycemia. - Management Goal: re-start and adherence to medication regimen - Continue current medication regimen at this time. - Patient called local pharmacy to confirm that they do have prescriptions for her Semglee. She is going to chicken picker today after this visit. - Insurance [...] etc. Assessment & Plan (09/12/2023 8:13 PM BOARDMARKER): Very high glucoses; multifactorial including steroid therapy, [...] daily. Assessment & Plan (06/24/2021 3:29 PM BOARDMARKER): Much improved but needs a little more basal insulin. Assessment & Plan (12/19/2020 7:53 AM CDT): Multiple medications, but now requires insulin. We can gradually adjust her Lantus based on her clinical response. Assessment & Plan (06/08/2020 8:32 AM BOARDMARKER): Glucoses somewhat better now that she is [...] motivator. Assessment & Plan (07/08/2019 8:43 AM BOARDMARKER): Continue increased dose of Ozempic and also continue Invokana. Importance of dietary changes increase exercise weight loss discussed. Follow-up with her e learning coordinator as they direct. Assessment & Plan (06/03/2019 8:25 AM CDT): Somewhat suboptimal, would benefit from increasing Ozempic and continuing efforts with diet and lifestyle. Needs follow-up labs Assessment & Plan (09/01/2018 2:22 PM BOARDMARKER): Glucoses a little high, but she has bruising with Victoza so she may benefit by changing to weekly Ozempic, which is a little stronger, as well. Jardiance is been ineffective, so we may need to provide preauthorization for Invokana Assessment & Plan (07/05/2018 9:23 AM BOARDMARKER): A1c above goal. We stressed importance of increased exercise, reduce calories, weight loss. Could consider switching Victoza to ozempic. Otherwise does not tolerate metformin or sulfonylureas. May need insulin soon. She is directed to follow up with her e learning coordinator more quickly than her next scheduled appointment in November. Assessment & Plan (08/26/2017 4:26 PM BOARDMARKER): Continue current medication regimen and follow up with her e learning coordinator as they direct. Low carb diet weight loss recommended. Check blood sugars once daily. Start atorvastatin and check lipids and LFTs in 3-4 months. Anxiety state 12/17/2013 Overview (11/07/2016): ANXIETY STATE NOS Benign hypertension 12/17/2013 Overview (11/07/2016): BENIGN HYPERTENSION [id number]|2024-12-19 02:30:00|2024-12-19 02:29:00|XMS_ITS|BKG DAEMON|External Medical Summaries|[id number]|" Encounter Summary Created on: December 19, 2024 Tomy Camila Olvera : 1975 Sex: Female Author Organization [facility] Address [address] [place] [address] Care Team Providers Care Legal Transcriber Name Role Phone Tiffany Cox MD Primary Care Provider Unavailable Kishor Saleh MD Primary Care Provider Encounter Details Date Type Department Care Team (Late st Contact Info) Description 07/03/2023 Lab Requisition [facility] - DermPath Lab [address] [place] [phone] [place] [id number] [address] Social History Tobacco Use Types Packs/Day Years Used Date Smoking Tobacco: Never Assessed Comments Unknown Sex and Gender Information Value Date Recorded Sex Assigned at Not on file Legal Sex Female 4:50 AM BOARDMARKER Gender Identity Not on file Sexual Orientation Not on file documented as of this encounter Plan of Treatment Not on file documented as of this encounter Procedures Procedure Name Priority Date/Time Associated Diagnosis Comments DERMATOPATHOLOGY Routine 07/01/2023 3:33 AM BOARDMARKER documented in this encounter Results * DERMATOPATHOLOGY (07/01/2023 3:33 AM BOARDMARKER) Case Report Dermatopathology Report Case: [id number] Authorizing Provider: Kendrick Christopher MD Collected: 07/01/2023 03:33 AM Ordering Location: [facility] DermPath Lab Received: 07/03/2023 12:12 PM Pathologist: Bella Schwab MD Specimen: Skin, right inferior knee 3:45 PM [facility] DERMATOPATHOLOGY LABORATORY Final Diagnosis Specimen A. SKIN, right inferior knee: STASIS DERMATITIS (L30.8) DERMAL FIBROSIS (L90.5) (see microscopic description) 3:45 PM [facility] DERMATOPATHOLOGY LABORATORY Clinical History Rash; R/O Leukocytoclastic Vasculitis, Livedo Reticularis 3:45 PM [facility] DERMATOPATHOLOGY LABORATORY Gross Description Specimen A: Received is one formalin filled container labeled with the patient's name and designated right inferior knee. The specimen consists of a punch biopsy measuring 6x5x6 mm. Jar 0. 3:45 PM [facility] DERMATOPATHOLOGY LABORATORY Microscopic Description Specimen A. [...] sections were obtained and reviewed. 3:45 PM [facility] DERMATOPATHOLOGY LABORATORY Disclaimer An external and internal positive and negative controls are appropriate for the histochemical, immunohistochemical and immunofluorescence stain(s) in this case (if any), except where stated explicitly. The performance characteristics of the stain(s) cited in this report were developed and its performance characteristic determined by the Dermatopathology Laboratory at [facility], directed by Dr. Arnol Perea. These tests need not be, and therefore are not, approved by the [place] Food and Drug Administration. The tests are used for clinical purposes. Billing Codes Specimen Charges Stain Charges 52360 1 99596 1 3 3:45 PM [facility] DERMATOPATHOLOGY LABORATORY Embedded Images 3 3:45 PM [facility] DERMATOPATHOLOGY LABORATORY Pathology/Cytolo gy TISSUE SPECIMEN FROM SKIN / Unknown 07/01/2023 3:33 AM BOARDMARKER 07/03/2023 12:12 PM BOARDMARKER Kendrick Christopher MD LAB - PATHOLOGY/CYTOLOGY O RDERABLES Final Result DERMATOPATHOLOGY LABORATORY [facility] - Department of Dermatology [facility] Medicine [address] [place] [address], [address] [phone] documented in this encounter Visit Diagnoses Not on filedocumented in this encounter Additional Health Concerns Infection Onset Date Last Indicated Resolved Time COVID-19 Under Investigation 08/13/2024 08/13/2024 08/13/2024 11:30 PM BOARDMARKER documented as of this encounter Care Teams Legal Transcriber Relationship Specialty Start Date End Date Tiffany Cox MD PCP - General Internal Medicine 05/16/13 07/30/23 Kishor Saleh MD [address] [place] [address] [address] PCP - General Internal Medicine 07/31/23 documented as of this encounter "
--- OUTSIDE RECORDS SUMMARY | 2024-12-19 00:46 | XMS_ITS | Encounter Summary ---
Author Organization [facility] Address [address] [facility] [place] [address] Care Team Providers Care Cook Candy Name Role Phone Tiffany Cox MD Primary Care Provider Unavailable Kishor Saleh MD Primary Care Provider Encounter Details Date Type Department Care Team (Late st Contact Info) Description 07/03/2023 Lab Requisition [facility] - DermPath Lab [address] [place] [address] [place] [address] [address] Social History Tobacco Use Types Packs/Day Years Used Date Smoking Tobacco: Never Assessed Comments Unknown Sex and Gender Information Value Date Recorded Sex Assigned at Not on file Legal Sex Female 4:50 AM INTERNAL CONTROLS CONSULTANT Gender Identity Not on file Sexual Orientation Not on file documented as of this encounter Plan of Treatment Not on file documented as of this encounter Procedures Procedure Name Priority Date/Time Associated Diagnosis Comments DERMATOPATHOLOGY Routine 07/01/2023 3:33 AM INTERNAL CONTROLS CONSULTANT documented in this encounter Results * DERMATOPATHOLOGY (07/01/2023 3:33 AM INTERNAL CONTROLS CONSULTANT) Case Report Dermatopathology Report Case: [id number] Authorizing Provider: Kendrick Christopher MD Collected: 07/01/2023 03:33 AM Ordering Location: [facility] DermPath Lab Received: 07/03/2023 12:12 PM Pathologist: Bella Schwab MD Specimen: Skin, right inferior knee 3:45 PM [facility] DERMATOPATHOLOGY [facility]ORATORY Final Diagnosis Specimen A. SKIN, right inferior knee: STASIS DERMATITIS (L30.8) DERMAL FIBROSIS (L90.5) (see microscopic description) 3:45 PM [facility] DERMATOPATHOLOGY LABORATORY Clinical History Rash; R/O Leukocytoclastic Vasculitis, Livedo Reticularis 3:45 PM [facility] DERMATOPATHOLOGY [facility]ORATORY Gross Description Specimen A: Received is one formalin filled container labeled with the patient's name and designated right inferior knee. The specimen consists of a punch biopsy measuring 6x5x6 mm. Jar 0. 3:45 PM [facility] DERMATOPATHOLOGY LABORATORY Microscopic Description Specimen A. [...] sections were obtained and reviewed. 3:45 PM [facility] DERMATOPATHOLOGY LABORATORY Disclaimer An external and internal positive and negative controls are appropriate for the histochemical, immunohistochemical and immunofluorescence stain(s) in this case (if any), except where stated explicitly. The performance characteristics of the stain(s) cited in this report were developed and its performance characteristic determined by the Dermatopathology Laboratory at [facility], directed by Dr. Arnol Perea. These tests need not be, and therefore are not, approved by the [place] Food and Drug Administration. The tests are used for clinical purposes. Billing Codes Specimen Charges Stain Charges 32830 1 68786 1 3 3:45 PM [facility] DERMATOPATHOLOGY LABORATORY Embedded Images 3 3:45 PM [facility] DERMATOPATHOLOGY [facility]ORATORY Pathology/Cytolo gy TISSUE SPECIMEN FROM SKIN / Unknown 07/01/2023 3:33 AM INTERNAL CONTROLS CONSULTANT 07/03/2023 12:12 PM INTERNAL CONTROLS CONSULTANT us Kendrick Christopher MD LAB - PATHOLOGY/CYTOLOGY O RDERABLES Final Result DERMATOPATHOLOGY LABORATORY [facility] - Department of Dermatology [facility] Medicine [address] [place] [address], [address] [phone] documented in this encounter Visit Diagnoses Not on filedocumented in this encounter Additional Health Concerns Infection Onset Date Last Indicated Resolved Time COVID-19 Under Investigation 08/13/2024 08/13/2024 08/13/2024 11:30 PM INTERNAL CONTROLS CONSULTANT documented as of this encounter Care Teams Cook Candy Relationship Specialty Start Date End Date Tiffany Cox MD PCP - General Internal Medicine 05/16/13 07/30/23 Kishor Saleh MD [address] [place] [address] DR S[address] [place] [id number] PCP - General Internal Medicine 07/31/23 documented as of this encounter
--- OUTSIDE RECORDS SUMMARY | 2024-12-19 00:46 | XMS_ITS | Continuity of Care Document ---
Author Organization [facility] Address [address] [place] [address] Phone Care Team Providers Care Contract Law Specialist Name Role Phone Tiffany Cox MD Unavailable [...] puff - Active Flonase 50 mcg/actuation Nasal [place] spray 1 spray by intranasal route every [...] Diagnoses Date Provider Providers Copied on Encounter [facility], [address], [place], [place], [address] , tel: [phone] [facility] No Information 5 Damien Allen. [address] [place] [address], [id number]. tel:[phone] [facility], [address], [place], [place], [address] , [place] tel: [phone] [facility] No Information 5-201 5 Damien Allen. [address] [place] [address], [id number]. tel:[phone] [facility], [address], [place], [place], [address] , [place] tel: [phone] [facility] No Information 4 Damien Zulma Allen. [address] [place] [address], [facility] [address], [place], [place], [id number]. tel:[phone] [facility], [address], [place], [place], [address] , [place] tel: [phone] [facility] No Information 3 Graves Threats Tiffany. [address] [place] [address], [facility] [address], [place], [place], [id number]. tel:[phone] [facility], [address], [place], [place], [address] , [place] tel: [phone] [facility] Strain of right knee and leg 3 Shahmarcell Castellanos. [address] [place] [address], [facility], [place], [place], [id number], [place]. tel:[phone] Referring Provider: Tiffany Maya, [address] [place] [address], [place], [address] . tel:[phone] [facility], [address], [place], [place], [address] , [place] tel: [phone] [facility] No Information 3 Damienmissy Allen. [address] [place] [address], [facility] [address], [place], [place], [id number]. tel:[phone] [facility], [address], [place], [place], [address] , [place] tel: [phone] [facility] Type II diabetes mellitusDyslipidemi aContact with or exposure to tuberculosis 3 Graves Zulma Carrizalesan. [address] [place] [address] 107, [place], [place], [address]. tel:[phone] Referring Provider: Tiffany Maya, [address] [place] [address] 107, [place], [address] . tel:[phone] [facility], [address], [place], [place], [address] , [place] tel: [phone] [facility] Diabetes mellitus without mention of complication, type II or unspecified type, uncontrolledAllergi c rhinitis, cause unspecifiedExtrinsi c asthmaMorbid obesityDiabetes mellitus without mention of complication, type II or unspecified type, not stated as uncontrolled 0 3 Damien Allen. [address] [place] [address], [place] [address], [place], [place], [address]. tel:[phone] Referring Provider: Tiffany Maya, [address] [place] [address] 107, [place], [address] . tel:[phone] [facility], [address], [place], [place], [address] , tel: [phone] [facility] No Information 3 Damien Allen. [address] [place] [address], [id number]. tel:[phone] [facility], [address], [place], [place], [address] , [place] tel: [phone] [facility] No Information 3 Sarah Cutler. [address] [place] [address], [place], [place], [id number], [place]. tel:[phone] [facility], [address], [place], [place], [address] , tel: [phone] [facility] Bronchitis, not specified as acute or chronicBronchitis, not specified as acute or chronic 3 Damien Allen. [address] [place] [address], [address], [id number]. tel:[phone] Referring Provider: Tiffany Maya, [address] [place] [address] 107, [place], [address] . tel:[phone] [facility], [address], [place], [place], [address] , tel: [phone] [facility] No Information 0 3 Sarah Cutler. [address], [address], [place], [place], [address], [place]. [phone] [facility], [address], [place], [place], [address] , tel: [phone] [facility] Diabetes mellitus without mention of complication, type II or unspecified type, uncontrolledEdemaIn fertility, female, associated with anovulationAllergic rhinitis, cause unspecifiedRoutine medical examMorbid obesityIrregular menses 3 Damien Maya Tiffany. [address], [address], [place], [place], [address]. [phone] Referring Provider: Tiffany Maya, [facility], [place], [address] . tel:[phone] Family History Family Member Type Diagnosis Age At Onset Problem (finding) Family history of depre ssion Problem (finding) Family history of Diabe sheila mellitus Problem (finding) Family history of Menta l illness Problem (finding) Family history of coronary arteriosclerosis Problem (finding) Family history of alzhe rj's disease Problem (finding) Family history of migra ine Payers Payer name Insurance type Covered democrat ID Authoriza tiradha(s) [employer] OPEN ACCESS I II III CI [id number] Social History Type Description Quantity Date Captured [...]
--- OUTSIDE RECORDS SUMMARY | 2024-12-19 00:46 | XMS_ITS | Encounter Summary ---
Author Organization [facility] Address [address] [facility] [place] [address] Care Team Providers Care Pre Planning Advisor Name Role Phone Tiffany Cox MD Primary Care Provider Unavailable Kishor Saleh MD Primary Care Provider Encounter Details Date Type Department Care Team (Late st Contact Info) Description 07/03/2023 Lab Requisition [facility] - [facility] Lab [address] [place] [id number] [place] [address] [facility] [address] [place] [address] Social History Tobacco Use Types Packs/Day Years Used Date Smoking Tobacco: Never Assessed Comments Unknown Sex and Gender Information Value Date Recorded Sex Assigned at Not on file Legal Sex Female 4:50 AM PADDED BOX SEWER Gender Identity Not on file Sexual Orientation Not on file documented as of this encounter Plan of Treatment Not on file documented as of this encounter Visit Diagnoses Not on filedocumented in this encounter Additional Health Concerns Infection Onset Date Last Indicated Resolved Time COVID-19 Under Investigation 08/13/2024 08/13/2024 08/13/2024 11:30 PM PADDED BOX SEWER documented as of this encounter Care Teams Pre Planning Advisor Relationship Specialty Start Date End Date Tiffany Cox MD PCP - General Internal Medicine 05/16/13 07/30/23 Kishor Saleh MD [address] [place] [address] DR S[address] [place] [address] PCP - General Internal Medicine 07/31/23 documented as of this encounter
--- OUTSIDE RECORDS SUMMARY | 2024-12-19 00:46 | XMS_ITS | Clinical Summary ---
Author Organization [facility] Address [address] [facility] [place] [address] Care Team Providers Care Staff Counsel Name Role Phone Kishor Saleh MD Primary Care Provider [phone] Source Comments [facility],non-owned Affiliates and Associated Physician Practices is amultiple site organization consisting of ambulatory clinics and hospital sitesin [place], [place], [place] and [place]. This disclosure is being madepursuant to the Care Everywhere program and may not contain all information available regarding this patient. Last updated 18.[facility] Allergies Active Allergy Reactions Criticality Noted Date [...] fluticasone propionate (Flonase) 50 MCG/ACT nasal spray [place] 2 (two) sprays into each nostril once [...] vitamin D, ergocalciferol , (Drisdol) 1.25 MG (68636 UT) capsule Take 1 (one) capsule by [...] any time in the past 12 m [facility], were you homeless or living in a long-term (including now)? No 08/15/2024 Comments Unknown Sex and Gender Information Value Date Recorded Sex Assigned at Not on file Legal Sex Female 4:50 AM BUYER GRAIN Gender Identity Not on file Sexual Orientation Not on file Last Filed Vital Signs Vital Sign Reading Time Taken Comments Blood Pressure 154/92 08/18/2024 12:25 PM BUYER GRAIN Pulse 102 08/18/2024 12:25 PM BUYER GRAIN Temperature 36.7 C (98.1 F) 08/18/2024 12:25 PM BUYER GRAIN Respiratory Rate 23 08/18/2024 12:2 5 PM BUYER GRAIN Oxygen Saturation 90% 08/18/2024 12: 25 PM BUYER GRAIN Inhaled Oxygen Concentration 21% 08/18/2024 2 :00 PM BU[employer]ER GRAIN Weight 132.6 kg (292 lb 4.8 oz) 08/18/2024 4:00 AM BUYER GRAIN Height 167.6 cm (5' 6 ) 08/13/2024 5:14 PM BUYER GRAIN Body Mass Index 47.18 08/13/2024 5:14 PM BUYER GRAIN Plan of Treatment Health Maintenance Due Date [...] (CALCIUM TOTAL) AM Draw 08/17/2024 4:16 AM BUYER GRAIN HEMOGLOBIN A1C Routine 08/14/2024 3:27 AM BUYER GRAIN from Last 3 Months or Most Recently Relevant to Health Maintenance Results * (ABNORMAL) BASIC METABOLIC PANEL (CALCIUM TOTAL) (08/17/2024 4:16 AM BUYER GRAIN) Glucose 139(H) 70 - 99 mg/dL 08/17/2024 4:53 AM BUYER GRAIN [facility] Sodium 140 136 - 145 mmol/L 08/17/2024 4:53 AM BU[facility]ER G[facility]IN [facility] Potassium 3.5 3.5 - 5.1 mmol/L 08/17/2024 4:53 AM BUYER GRAIN [facility] Chloride 108(H) 98 - 107 mmol/L 08/17/2024 4:53 AM BUYER GRAIN [facility] CO2 24 22 - 29 mmol/L 08/17/2024 4:53 AM BUYER GRAIN [facility] Calcium 8.9 8.4 - 10.4 mg/dL 08/17/2024 4:53 AM [facility] Anion Gap 8 6 - 16 mmol/L 08/17/2024 4:53 AM [facility] BUN 15 5.3 - 18.7 mg/dL 08/17/2024 4:53 AM [facility] Creatinine 0.65 0.57 - 1.11 mg/dL 08/17/2024 4:53 AM [facility] eGFR by CKD-EPI >90 >=90 mL/min/1.7 3 m2 08/17/2024 4:53 AM [facility] Blood BLOOD SPECIMEN / Unknown Venipuncture / Unknown 08/17/2024 4:16 AM BUYER GRAIN 08/17/2024 4:30 AM [facility] Alexus Ramirez MD LAB - CHEMISTRY ORDERABLES Final Result [facility] [address] [place] [address] * (ABNORMAL) HEMOGLOBIN A1C (08/14/2024 3:27 AM [facility]) Hemoglobin A1c 10.1(H) <5.7 % 08/14/2024 3:48 AM [facility] Estimated Average Glucose 243 mg/dL 08/14/2024 3:48 AM [facility] Blood BLOOD SPECIMEN / Unknown Venipuncture / Unknown 08/14/2024 3:27 AM BUYER GRAIN 08/14/2024 3:37 AM [facility] Narrative [facility] - 08/14/2024 3:48 AM [facility] HbA1c Interpretation: Normal: < 5.7% Pre-diabetes: [...] MD LAB - CHEMISTRY ORDERABLES Final Result [facility] [address] [place] [address] from Last 3 Months or Most Recently Relevant to Health Maintenance Insurance [facility] Advance Directives * Full Code (Latest Code Status on File) Date Activated Date Inactivated Comments 08/13/2024 3:54 PM 08/18/2024 6:24 PM Care Teams Staff Counsel Relationship Specialty Start Date End Date Kishor Saleh MD [address] [facility] [address] S[place] [address] [place] [id number] PCP - General Internal Medicine 07/31/23
--- OUTSIDE RECORDS SUMMARY | 2024-12-19 00:46 | XMS_ITS | Clinical Summary ---
Author Organization [facility] A Address [address] [place] [address] Care Team Providers Care Netsuite Developer Name Role Phone Ann Serrano MD Unavailable [phone] Lynn Rodriguez MD Primary Care Provider Allergies [...] NEBULIZER EVERY 6 HOURS NEEDED FOR WHEEZING (BOND UNDERWRITER RECOMMENDS NOT EXCEEDING 4 VIALS/DAY) 150 mL [...] WEEKLY DIRECTED 2 mL 11 025 Active Vitamin D2 1,250 mcg (50,000 unit) capsule TAKE 1 CAPSULE BY MOUTH TWICE WEEKLY 26 capsule 3 025 Active lidocaine (LIDODERM) 5 % Apply 1 patch topically daily; leave on most painful area for up to 12 hrs 025 Active ergocalciferol (Vitamin D2) 50,000 unit capsule [...] 08/13/2024 Assessment & Plan (08/26/2024 6:09 PM ADDICTION THERAPIST): Recent hospitalization likely for CAP followed by RSV Symptoms resolved Impaired mobility 07/29/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 07/13/2024 terminal press operator 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 user 07/13/2024 Assessment & Plan (07/13/2024 12:22 PM ADDICTION THERAPIST): - Further complicates diabetes management Need for vaccination 04/06/2024 Assessment & Plan (04/06/2024 4:14 PM CDT): Received pneumonia vaccine today history of pneumonia currently no complaints last bout in 08/2023 Head trauma 09/04/2022 Assessment & Plan (09/04/2022 2:35 PM ADDICTION THERAPIST): No signs of neurological abnormality on examination [...] booster Assessment & Plan (06/24/2021 3:28 PM ADDICTION THERAPIST): Pito vaccine 10/05/2020 and Moderna booster Jun 2021 Major depressive disorder 04/22/2021 Assessment & Plan (01/06/2024 9:09 AM CDT): Stable on current medication regimen. Assessment & Plan (01/17/2022 10:21 AM CDT): Stable on current medication regimen. Assessment & Plan (07/17/2021 2:07 PM ADDICTION THERAPIST): Better controlled on venlafaxine. Assessment & Plan (04/22/2021 8:25 AM CDT): Restart venlafaxine and warned of side effects and call back if any develop or if no improvement. Type 2 diabetes mellitus with hyperlipidemia 06/2020 Assessment & Plan (01/06/2024 9:09 AM CDT): A1c above goal. Will start Mounjaro soon. Continue other medications as directed by her tankage grinder operator. Diet exercise discussed. Hopefully may be able to wean prednisone in the near future as well. Assessment & Plan (06/15/2023 10:48 AM ADDICTION THERAPIST): She knows that the steroids will exacerbate her hyperglycemia and should be in contact with her tankage grinder operator for management. Assessment & Plan (06/08/2023 5:26 PM ADDICTION THERAPIST): Poor control of her diabetes prior to this hospitalization and even worse now on prednisone. Follow-up with her tankage grinder operator for management. Diet exercise weight loss recommended. Assessment & Plan (01/21/2023 9:50 AM CDT): Blood sugars remain above goal. Hopefully the recent addition of mounjaro will help significantly. Discuss up titration of this and her mealtime insulin with her tankage grinder operator. Diet exercise discussed. Check A1c and fasting blood sugar before next visit. Assessment & Plan (08/02/2022 12:16 PM ADDICTION THERAPIST): A1c poorly controlled. Importance of diet exercise weight loss discussed at length. Continue her Ozempic and insulin and needs to contact her tankage grinder operator soon as possible for guidance on further therapy. Assessment & Plan (01/17/2022 10:22 AM CDT): Patient aware A1c grossly uncontrolled. Must work on diet exercise and weight loss. She has to get back on her insulin and should discuss this today with her tankage grinder operator. Risks posed her health with poor glycemic control discussed. Assessment & Plan (07/13/2020 8:34 AM ADDICTION THERAPIST): A1c above goal. Importance of diet exercise weight loss discussed. Continue current medication regimen and follow-up with her tankage grinder operator as they direct. 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 Unfortunately lab work and skin biopsy inconclusive. Discussed possible rheumatology 2nd opinion here at [facility] and patient will call back if desired. Assessment & Plan (06/15/2023 10:48 AM ADDICTION THERAPIST): Certainly making a case for underlying vasculitis [...] condition. Assessment & Plan (06/20/2020 9:35 AM ADDICTION THERAPIST): Unclear etiology but I am thinking of [...] tolerated Assessment & Plan (08/26/2024 6:10 PM ADDICTION THERAPIST): Body mass index is 49.1 kg/m . BMI Follow-up includes: nutrition counseling, exercise counseling, and education provided. Assessment & Plan (07/13/2024 12:20 PM ADDICTION THERAPIST): - Increase Mounjaro to 10 mg weekly [...] tolerated. Assessment & Plan (06/08/2023 5:23 PM ADDICTION THERAPIST): Patient is encouraged to lose weight with a combination of caloric reduction and increased exercise. Various strategies discussed. The long-term risks associated with continued morbid obesity discussed. Assessment & Plan (09/04/2022 2:34 PM ADDICTION THERAPIST): Patient is encouraged to lose weight with a combination of caloric reduction and increased exercise. Various strategies discussed. The long-term risks associated with continued morbid obesity discussed. Assessment & Plan (08/02/2022 12:16 PM ADDICTION THERAPIST): Patient is encouraged to lose weight with [...] discussed. Assessment & Plan (07/13/2020 8:34 AM ADDICTION THERAPIST): Patient is encouraged to lose weight with a combination of caloric reduction and increased exercise. Various strategies discussed. The long-term risks associated with continued morbid obesity discussed. Assessment & Plan (06/20/2020 9:35 AM ADDICTION THERAPIST): Patient is encouraged to lose weight with a combination of caloric reduction and increased exercise. Various strategies discussed. The long-term risks associated with continued morbid obesity discussed. Assessment & Plan (07/08/2019 8:44 AM ADDICTION THERAPIST): Patient is encouraged to lose weight with a combination of caloric reduction and increased exercise. Various strategies discussed. The long-term risks associated with continued morbid obesity discussed. Irregular menses 06/03/2019 Allergic rhinitis 07/05/2018 Assessment & Plan (02/23/2023 1:30 PM CDT): Nasal saline spray (Simply saline, [place] Rem[place]ies, [place], [place]) 2 second sprays or 2 squeezes into [...] daily Assessment & Plan (07/17/2021 2:07 PM ADDICTION THERAPIST): Claritin montelukast. Assessment & Plan (04/22/2021 8:25 AM CDT): Currently using Claritin and montelukast. She has not been trying Flonase as her nose is being to congested. Recommended sinus rinses her using a hot warm shower. Could also try Afrin for few days. Assessment & Plan (07/08/2019 8:43 AM ADDICTION THERAPIST): Add montelukast to her Claritin. She struggles with nasal sprays due to chronic congestion. Assessment & Plan (07/05/2018 9:24 AM ADDICTION THERAPIST): Try Afrin for 3 days along with [...] mg/dL Assessment & Plan (07/13/2024 12:21 PM ADDICTION THERAPIST): - Last LDL 103, TG 308, TC [...] triglycerides. Assessment & Plan (09/12/2023 8:12 PM ADDICTION THERAPIST): Continue statin and optimize glycemic control Assessment & Plan (02/16/2023 8:14 PM CDT): Continue statin and optimize glycemic control Assessment & Plan (01/21/2023 9:50 AM CDT): Continue her atorvastatin and work on diet exercise and check lipids and LFTs before next visit. Assessment & Plan (08/02/2022 12:15 PM ADDICTION THERAPIST): Well controlled on current therapy and will check a lipid panel and LFTs in 6 months. Assessment & Plan (01/17/2022 10:21 AM CDT): Well controlled on current therapy and will check a lipid panel and LFTs in 6 months. Assessment & Plan (07/17/2021 2:06 PM ADDICTION THERAPIST): Well controlled on current therapy and will check a lipid panel and LFTs in 6 months. Assessment & Plan (06/24/2021 3:28 PM ADDICTION THERAPIST): Continue statin and optimize glycemic control Assessment & Plan (12/19/2020 7:53 AM CDT): Continue statin and optimize glycemic control Assessment & Plan (07/13/2020 8:34 AM ADDICTION THERAPIST): Well controlled on current therapy and will check a lipid panel and LFTs in 6 months. Assessment & Plan (06/08/2020 8:31 AM ADDICTION THERAPIST): LDL within goal. Continue statin and optimize glycemic control Assessment & Plan (07/08/2019 8:42 AM ADDICTION THERAPIST): Well controlled on current therapy and will check a lipid panel and LFTs in 12 months. Assessment & Plan (09/01/2018 2:22 PM ADDICTION THERAPIST): Continue statin, optimize glycemic control Assessment & Plan (07/05/2018 9:23 AM ADDICTION THERAPIST): Well controlled on current therapy and will check a lipid panel and LFTs in 6 months. Assessment & Plan (08/26/2017 4:27 PM ADDICTION THERAPIST): Start atorvastatin and check lipids and LFTs in 3-4 months. Call back for results. Vitamin D deficiency 07/02/2017 Assessment & Plan (07/13/2024 12:22 PM ADDICTION THERAPIST): - Last Vitamin D 42 (12/2023), replete [...] week Assessment & Plan (09/12/2023 8:12 PM ADDICTION THERAPIST): Continue long-term supplement Assessment & Plan (02/16/2023 8:14 PM CDT): Continue long-term supplement Assessment & Plan (08/02/2022 12:15 PM ADDICTION THERAPIST): Continue current supplementation and check level in 1 year. Assessment & Plan (07/17/2021 2:06 PM ADDICTION THERAPIST): Continue current supplementation and check level in 1 year. Assessment & Plan (06/24/2021 3:29 PM ADDICTION THERAPIST): Continue long-term supplement Assessment & Plan (12/19/2020 7:53 AM CDT): Continue long-term supplement Assessment & Plan (07/13/2020 8:33 AM ADDICTION THERAPIST): Continue current supplementation and check level in 1 year. Assessment & Plan (06/08/2020 8:31 AM ADDICTION THERAPIST): Vitamin-D level within goal, continue chronic supplement Assessment & Plan (07/08/2019 8:42 AM ADDICTION THERAPIST): Continue current supplementation and check level in 1 year. Assessment & Plan (06/03/2019 8:24 AM CDT): Recently ran out of supplement, so we will restart and check her level today. Also check B12 Assessment & Plan (09/01/2018 2:22 PM ADDICTION THERAPIST): Continue supplement Assessment & Plan (07/05/2018 9:23 AM ADDICTION THERAPIST): Continue current supplementation and check level in 1 year. Assessment & Plan (08/26/2017 4:26 PM ADDICTION THERAPIST): Continue current supplementation and check level in [...] Component Value Date HGBA1C 11.7 07/13/2024 Per [place] [employer], goal A1c is less 7% [...] that I am available via phone or [employer] if they have any concerns for hypo/hyperglycemia, medication refills, etc. Assessment & Plan (08/26/2024 6:10 PM ADDICTION THERAPIST): Assessment & Plan (07/13/2024 12:20 PM ADDICTION THERAPIST): - Diabetes is complicated by hyperlipidemia, hypertension, morbid obesity and chronic steroid use. Uncontrolled. Lab Results Component Value Date HGBA1C 11.7 07/13/2024 Per [place] [employer], goal A1c is less 7% [...] in prescriptions for both Dexcom G7 and [employer] Silva 3 CGM for olivares checking. Also [...] Return visit 3 months to see the RIB KNITTER/PA, 6 months to see me. Assessment & [...] Component Value Date HGBA1C 12.5 11/17/2023 Per [place] [employer], goal A1c is less 7% [...] Component Value Date HGBA1C 12.5 11/17/2023 Per [place] [employer], goal A1c is less 7% without significant hypoglycemia. - Management Goal: re-start and adherence to medication regimen - Continue current medication regimen at this time. - Patient called local pharmacy to confirm that they do have prescriptions for her Semglee. 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 - Insurance does [...] etc. Assessment & Plan (09/12/2023 8:13 PM ADDICTION THERAPIST): Very high glucoses; multifactorial including steroid therapy, [...] daily. Assessment & Plan (06/24/2021 3:29 PM ADDICTION THERAPIST): Much improved but needs a little more basal insulin. Assessment & Plan (12/19/2020 7:53 AM CDT): Multiple medications, but now requires insulin. We can gradually adjust her Lantus based on her clinical response. Assessment & Plan (06/08/2020 8:32 AM ADDICTION THERAPIST): Glucoses somewhat better now that she is [...] motivator. Assessment & Plan (07/08/2019 8:43 AM ADDICTION THERAPIST): Continue increased dose of Ozempic and also continue Invokana. Importance of dietary changes increase exercise weight loss discussed. Follow-up with her tankage grinder operator as they direct. Assessment & Plan (06/03/2019 8:25 AM CDT): Somewhat suboptimal, would benefit from increasing Ozempic and continuing efforts with diet and lifestyle. Needs follow-up labs Assessment & Plan (09/01/2018 2:22 PM ADDICTION THERAPIST): Glucoses a little high, but she has bruising with Victoza so she may benefit by changing to weekly Ozempic, which is a little stronger, as well. Jardiance is been ineffective, so we may need to provide preauthorization for Invokana Assessment & Plan (07/05/2018 9:23 AM ADDICTION THERAPIST): A1c above goal. We stressed importance of increased exercise, reduce calories, weight loss. Could consider switching Victoza to ozempic. Otherwise does not tolerate metformin or sulfonylureas. May need insulin soon. She is directed to follow up with her tankage grinder operator more quickly than her next scheduled appointment in November. Assessment & Plan (08/26/2017 4:26 PM ADDICTION THERAPIST): Continue current medication regimen and follow up with her tankage grinder operator as they direct. Low carb diet weight loss recommended. Check blood sugars once daily. Start atorvastatin and check lipids and LFTs in 3-4 months. Anxiety state 12/17/2013 Overview (11/07/2016): ANXIETY STATE NOS Benign hypertension 12/17/2013 Overview (11/07/2016): BENIGN HYPERTENSION Assessment & Plan (07/13/2024 12:21 PM ADDICTION THERAPIST): - Above goal today - Encouraged her [...] monitor. Assessment & Plan (06/08/2023 5:25 PM ADDICTION THERAPIST): Stop amlodipine with current issues of swelling. Pressure currently well controlled and should monitor at home Assessment & Plan (01/21/2023 9:49 AM CDT): Blood pressure well controlled on lisinopril Assessment & Plan (09/04/2022 2:34 PM ADDICTION THERAPIST): Blood pressure well controlled on her lisinopril. Assessment & Plan (08/02/2022 12:15 PM ADDICTION THERAPIST): Increase lisinopril to 20 mg daily. Monitor blood pressure at home call back if no improvement. Assessment & Plan (01/17/2022 10:21 AM CDT): Well controlled on the current regimen. Avoidance of salt, proper body weight, and routine exercise recommended. Assessment & Plan (07/17/2021 2:06 PM ADDICTION THERAPIST): Well controlled on the current regimen. Avoidance of salt, proper body weight, and routine exercise recommended. Assessment & Plan (04/22/2021 8:24 AM CDT): Well controlled on the current regimen. Avoidance of salt, proper body weight, and routine exercise recommended. Assessment & Plan (07/13/2020 8:34 AM ADDICTION THERAPIST): Well controlled on the current regimen. Avoidance of salt, proper body weight, and routine exercise recommended. Assessment & Plan (07/08/2019 8:42 AM ADDICTION THERAPIST): Well controlled on the current regimen. Avoidance of salt, proper body weight, and routine exercise recommended. Assessment & Plan (09/01/2018 2:21 PM ADDICTION THERAPIST): Blood pressure close to target, working on diet and lifestyle Assessment & Plan (07/05/2018 9:23 AM ADDICTION THERAPIST): Well controlled on the current regimen. Avoidance of salt, proper body weight, and routine exercise recommended. Assessment & Plan (08/26/2017 4:25 PM ADDICTION THERAPIST): Well controlled on the current regimen. Avoidance of salt, proper body weight, and routine exercise recommended. Anemia 12/29/2012 Moderate persistent asthma without complication 08/19/2012 Overview (06/03/2019): Description: frequent flares Assessment & Plan (08/26/2024 6:08 PM ADDICTION THERAPIST): Recent exacerbation due to CAP followed by RSV Symptoms improved Continue present plan and medication--albuterol prn, montelukast Assessment & Plan (07/13/2020 8:36 AM ADDICTION THERAPIST): Doing well on her Symbicort. Okay to discontinue and use albuterol only as needed. Restart Symbicort if uses her albuterol more than 2 times a week. Sleep apnea syndrome 04/01/2012 Overview (11/12/2017) [id number]|2024-12-19 02:30:00|2024-12-19 02:29:00|XMS_ITS|JAKUB BEATTY|External Medical Summaries|[id number]|" Clinical Summary Created on: December 19, 2024 Camila Huitron : 1975 Sex: Female Author Organization [facility] Address [address] [place] [address] Care Team Providers Care Netsuite Developer Name Role Phone Kishor Saleh MD Primary Care Provider Source Comments [facility],non-owned Affiliates and Associated Physician Practices is amultiple site organization consisting of ambulatory clinics and hospital sitesin [place], [place], [place] and [place]. This disclosure is being madepursuant to the Care Everywhere program and may not contain all information available regarding this patient. Last updated 18.[facility] Allergies Active Allergy Reactions Criticality Noted Date [...] fluticasone propionate (Flonase) 50 MCG/ACT nasal spray Fraser 2 (two) sprays into each nostril once daily as needed Active hydroxychloroq uine (Plaquenil) 200 MG tablet Take 2 (two) tablets by mouth once daily Active insulin glargine (Lantus/Semgle e) 100 units/mL pen Inject 40 (forty) Units subcutaneously 2 times daily, before breakfast and supper Active Insulin Lispro-aabc, 1 U Dial, (Lyumjev KwikBud) 100 UNIT/ML SOPN Inject 10-15 Units subcutaneously [...] vitamin D, ergocalciferol , (Drisdol) 1.25 MG (53676 UT) capsule Take 1 (one) capsule by [...] money to buy more. Never true 08/15/19 Within the past 12 months, t he [...] any time in the past 12 [facility], were you homeless or living in a penitentiary (including now)? No 08/15/2024 Comments Unknown Sex and Gender Information Value Date Recorded Sex Assigned at Not on file Legal Sex Female 4:50 AM ADDICTION THERAPIST Gender Identity Not on file Sexual Orientation Not on file Last Filed Vital Signs Vital Sign Reading Time Taken Comments Blood Pressure 154/92 08/18/2024 12:25 PM ADDICTION THERAPIST Pulse 102 08/18/2024 12:25 PM ADDICTION THERAPIST Temperature 36.7 C (98.1 F) 08/18/2024 12:25 PM ADDICTION THERAPIST Respiratory Rate 23 08/18/2024 12:2 5 PM ADDICTION THERAPIST Oxygen Saturation 90% 08/18/2024 12: 25 PM ADDICTION THERAPIST Inhaled Oxygen Concentration 21% 08/18/2024 2 :00 PM ADDICTION THERAPIST Weight 132.6 kg (292 lb 4.8 oz) 08/18/2024 4:00 AM ADDICTION THERAPIST Height 167.6 cm (5' 6 ) 08/13/2024 5:14 PM ADDICTION THERAPIST Body Mass Index 47.18 08/13/2024 5:14 PM ADDICTION THERAPIST Plan of Treatment Health Maintenance Due Date [...] (CALCIUM TOTAL) AM Draw 08/17/2024 4:16 AM ADDICTION THERAPIST HEMOGLOBIN A1C Routine 08/14/2024 3:27 AM ADDICTION THERAPIST from Last 3 Months or Most Recently Relevant to Health Maintenance Results * (ABNORMAL) BASIC METABOLIC PANEL (CALCIUM TOTAL) (08/17/2024 4:16 AM ADDICTION THERAPIST) Glucose 139(H) 70 - 99 mg/dL 08/17/2024 4:53 AM [facility] Sodium 140 136 - 145 mmol/L 08/17/2024 4:53 AM [facility] Potassium 3.5 3.5 - 5.1 mmol/L 08/17/2024 4:53 AM [facility] Chloride 108(H) 98 - 107 mmol/L 08/17/2024 4:53 AM [facility] CO2 24 22 - 29 mmol/L 08/17/2024 4:53 AM [facility] Calcium 8.9 8.4 - 10.4 mg/dL 08/17/2024 4:53 AM [facility] Anion Gap 8 6 - 16 mmol/L 08/17/2024 4:53 AM [facility] BUN 15 5.3 - 18.7 mg/dL 08/17/2024 4:53 AM [facility] Creatinine 0.65 0.57 - 1.11 mg/dL 08/17/2024 4:53 AM [facility] eGFR by CKD-EPI >90 >=90 mL/min/1.7 3 m2 08/17/2024 4:53 AM [facility] Blood BLOOD SPECIMEN / Unknown Venipuncture / Unknown 08/17/2024 4:16 AM ADDICTION THERAPIST 08/17/2024 4:30 AM ADDICTION THERAPIST Alexus Ramirez MD LAB - CHEMISTRY ORDERABLES Final Result Performing Organization Address [facility] Co de Phone Number [facility] [address] [place] [address] * (ABNORMAL) HEMOGLOBIN A1C (08/14/2024 3:27 AM ADDICTION THERAPIST) Hemoglobin A1c 10.1(H) <5.7 % 08/14/2024 3:48 AM ADDICTION THERAPIST [facility] Estimated Average Glucose 243 mg/dL 08/14/2024 3:48 AM ADDICTION THERAPIST [facility] Blood BLOOD SPECIMEN / Unknown Venipuncture / Unknown 08/14/2024 3:27 AM ADDICTION THERAPIST 08/14/2024 3:37 AM ADDICTION THERAPIST Narrative [facility] - 08/14/2024 3:48 AM ADDICTION THERAPIST HbA1c Interpretation: Normal: < 5.7% Pre-diabetes: 5.7-6.4% [...] MD LAB - CHEMISTRY ORDERABLES Final Result Performing Organization Address [facility] Co de Phone Number [facility] [address] [place] [address] from Last 3 Months or Most Recently Relevant to Health Maintenance Insurance [employer] [facility] [employer] [id number] [id number] Advance Directives * Full Code (Latest Code Status on File) Date Activated Date Inactivated Comments 08/13/2024 3:54 PM 08/18/2024 6:24 PM Care Teams Netsuite Developer Relationship Specialty Start Date End Date Kishor Salhe MD [address] [address] [place] [id number] PCP - General Internal Medicine 07/31/23 "
--- OUTSIDE RECORDS SUMMARY | 2024-12-19 00:46 | XMS_ITS | Encounter Summary ---
Author Organization [facility] Address [address] [place] [address] Care Team Providers Care Group Sales Representative Name Role Phone Tiffany Cox MD Primary Care Provider Unavailable Kishor Saleh MD Primary Care Provider Encounter Details Date Type Department Care Team (Late st Contact Info) Description 07/03/2023 Lab Requisition [facility] [address] [place] [id number] [place] [id number] [place] [address] [place] [id number] Social History Tobacco Use Types Packs/Day Years Used Date Smoking Tobacco: Never Assessed Comments Unknown Sex and Gender Information Value Date Recorded Sex Assigned at Not on file Legal Sex Female 4:50 AM CASING SOAKER Gender Identity Not on file Sexual Orientation Not on file documented as of this encounter Plan of Treatment Not on file documented as of this encounter Visit Diagnoses Not on filedocumented in this encounter Additional Health Concerns Infection Onset Date Last Indicated Resolved Time COVID-19 Under Investigation 08/13/2024 08/13/2024 08/13/2024 11:30 PM CASING SOAKER documented as of this encounter Care Teams Group Sales Representative Relationship Specialty Start Date End Date Tiffany Cox MD PCP - General Internal Medicine 05/16/13 07/30/23 Kishor Saleh MD [address] [place] [address] [address] [place] [id number] PCP - General Internal Medicine 07/31/23 documented as of this encounter
--- OUTSIDE RECORDS SUMMARY | 2024-12-19 00:46 | XMS_ITS | Encounter Summary ---
Author Organization [facility] Address [address] [place] [address] Care Team Providers Care Base Brander Name Role Phone Tiffany Cox MD Primary Care Provider Unavailable Kishor Saleh MD Primary Care Provider Encounter Details Date Type Department Care Team (Late st Contact Info) Description 07/03/2023 Lab Requisition [facility] - DermPath Lab [address] [place] [address] [place] [id number] [address] Social History Tobacco Use Types Packs/Day Years Used Date Smoking Tobacco: Never Assessed Comments Unknown Sex and Gender Information Value Date Recorded Sex Assigned at Not on file Legal Sex Female 4:50 AM INSIDE SALES ENGINEER Gender Identity Not on file Sexual Orientation Not on file documented as of this encounter Plan of Treatment Not on file documented as of this encounter Procedures Procedure Name Priority Date/Time Associated Diagnosis Comments IMMUNOFLUORESCENT STUDY DERM Routine 07/01/2023 3:33 AM INSIDE SALES ENGINEER documented in this encounter Results * IMMUNOFLUORESCENT STUDY DERM (07/01/2023 3:33 AM INSIDE SALES ENGINEER) Case Report Dermatopathol ogy Report Case: [id number] Authorizing Provider: Kendrcik Christopher MD Collected: 07/01/2023 03:33 AM Ordering Location: [facility] Received: 07/03/2023 12:13 PM Pathologist: Bella Schwab MD Specimen: Skin, right superior han 3:46 PM [facility] DERMATOPATHOLOGY [facility]ORATORY Final Diagnosis Specimen A. SKIN, right superior han: COLLOID BODIES (L98.9) (see microscopic description) (see fixed tissue results) 3:46 PM INSIDE SALES ENGINEER DERMATOPATHOLOGY LABORATORY Direct Immunofluorescence Report - Specimen A Specimen A IgA IgM IgG C3 CollV Fibrinogen Epidermis Negative Negative Negative Negative Negative Negative Basement Membrane Negative Negative Negative Negative 2+ Negative Vessels Negative Negative Negative Negative 2+ Negative Interstitium Colloid Colloid Colloid Negative Negative Non specific 3 3:46 PM INSIDE SALES ENGINEER DERMATOPATHOLOGY LABORATORY Clinical History Rash; R/O Leukocytoclas tic Vasculitis, Livedo Reticularis 3:46 PM INSIDE SALES ENGINEER DERMATOPATHOLOGY LABORATORY Gross Description Specimen A: Received is one Jatinder's media filled container labeled with the patient's name and designated right superior han. The specimen consists of a punch biopsy measuring 5x4x4 mm. The specimen is submitted in whole for direct immunofluores cence testing. 3:46 PM [facility] DERMATOPATHOLOGY [facility]ORATORY [...] rubbing. See fixed tissue results. 3:46 PM INSIDE SALES ENGINEER DERMATOPATHOLOGY LABORATORY Disclaimer An external and internal positive and negative controls are appropriate for the histochemical , immunohistoch emical and immunofluores cence stain(s) in this case (if any), except where stated explicitly. The performance characteristi cs of the stain(s) cited in this report were developed and its performance characteristi c determined by the Dermatopathol ogy Laboratory at [facility], directed by Dr. Arnol Perea. These tests need not be, and therefore are not, approved by the [place] Food and Drug Administratio n. The tests are used for clinical purposes. Billing Codes Specimen Charges Stain Charges 16288 17090 71141 43396 80453 09519 1 1 1 1 1 1 3 3:46 PM INSIDE SALES ENGINEER DERMATOPATHOLOGY LABORATORY Embedded Images 3 3:46 PM INSIDE SALES ENGINEER DERMATOPATHOLOGY LABORATORY Pathology/Cytolo gy TISSUE SPECIMEN FROM SKIN / Unknown 07/01/2023 3:33 AM INSIDE SALES ENGINEER 07/03/2023 12:13 PM INSIDE SALES ENGINEER Kendrick Christopher MD LAB - PATHOLOGY/CYTOLOGY O RDERABLES Final Result DERMATOPATHOLOGY LABORATORY [facility] - Department of Dermatology [address], [address] [phone] documented in this encounter Visit Diagnoses Not on filedocumented in this encounter Additional Health Concerns Infection Onset Date Last Indicated Resolved Time COVID-19 Under Investigation 08/13/2024 08/13/2024 08/13/2024 11:30 PM INSIDE SALES ENGINEER documented as of this encounter Care Teams Base Brander Relationship Specialty Start Date End Date Tiffany Cox MD PCP - General Internal Medicine 05/16/13 07/30/23 Kishor Saleh MD [address] [place] [address] [address] [place] [id number] PCP - General Internal Medicine 07/31/23 documented as of this encounter
--- OUTSIDE RECORDS SUMMARY | 2024-12-19 00:46 | XMS_ITS | Encounter Summary ---
Author Organization [facility] Address [address] [place] [address] Phone Care Team Providers Care Manager Environmental Services Name Role Phone Kishor Saleh MD Primary Care Provider [phone] Ann Serrano MD Unavailable [phone] No, Physician Primary Care Provider [phone] Kishor Saleh MD Primary Care Provider [phone] Lynn Rodriguez MD Primary Care Provider Encounter Details Date Type Department Care Team (Late st Contact Info) Description 09/30/2017 Orders Only [facility] ProviderStephenie MD [address] [place] [address] Social History Tobacco Use Types Packs/Day Years Used Date Smoking Tobacco: Never Smokeless Tobacco: Never Alcohol Use Standard Drinks/Week Comments No 0 (1 standard drink = 0.6 oz pur e alcohol) Comments Unknown Sex and Gender Information Value Date Recorded Sex Assigned at Not on file Legal Sex Female 11:54 PM SHUTTLE BUS DRIVER Gender Identity Female 09/19/2020 8:37 AM SHUTTLE BUS DRIVER Sexual Orientation Straight 09/19/2020 8: 37 AM SHUTTLE BUS DRIVER documented as of this encounter Plan of Treatment Not on file documented as of this encounter Procedures Procedure Name Priority Date/Time Associated Diagnosis Comments DISCHARGE LABORATORY CUMULATIVE REPORT 09/30/2017 12:00 AM SHUTTLE BUS DRIVER documented in this encounter Results * DISCHARGE LABORATORY CUMULATIVE REPORT (09/30/2017 12:00 AM SHUTTLE BUS DRIVER) Narrative 09/30/2017 12:00 AM SHUTTLE BUS DRIVER Ordered by an unspecified provider. us Historical Provider LAB BLOOD ORDERABLES Flora l Result documented in this encounter Visit Diagnoses Not on filedocumented in this encounter Additional Health Concerns Infection Onset Date Last Indicated Resolved Time COVID: Suspected 08/13/2022 08/13/2022 08/13/2022 1:16 PM SHUTTLE BUS DRIVER COVID: Suspected 11/07/2024 11/07/2024 11/07/2024 2:20 PM CDT documented as of this encounter Care Teams Manager Environmental Services Relationship Specialty Start Date End Date Kishor Saleh MD PCP - General 09/28/08 11/16/23 No, Physician PCP - General 11/17/23 12/28/23 Kishor Saleh MD [id number] [address], [place] [address] PCP - General Internal Medicine 12/29/23 04/05/24 [place] [address] [facility] [address] [place] [address] PCP - General Internal Medicine 04/06/24 Ann Serrano MD Referring Physician Endocrinology Diabetes & Metabolism 06/08/20 documented as of this encounter
--- OUTSIDE RECORDS SUMMARY | 2024-12-19 02:29 | XMS_ITS | Clinical Summary ---
Author Organization [facility] Address [address] [place] [address] Phone Care Team Providers Care Resilient Tile Installer Name Role Phone Masoud Hayes MD Primary Care Provider [phone] Allergies Active Allergy Reactions Criticality Noted Date [...] mouth daily. 30 Tablet 08/13/2022 2:47 PM IT SECURITY PROJECT MANAGER 08/13/19 23 Active amLODIPine (NORVASC) 2.5 mg tablet Take 1 Tablet (2.5 mg) by mouth daily in the morning. 90 Tablet 05/29/2023 5:55 PM CDT 05/29/20 23 Active cyclobenzaprin e (FLEXERIL) 5 mg Tablet TAKE 1-2 TABLETS BY MOUTH NIGHTLY TO REDUCE MUSCLE CRAMPS 60 Tablet 3 07/10/2023 3:38 PM IT SECURITY PROJECT MANAGER 06/23/20 23 Active hydroxychloroq uine (PLAQUENIL) 200 mg tablet TAKE 2 TABLETS BY MOUTH ONCE DAILY 60 Tablet 3 07/10/2023 3:38 PM IT SECURITY PROJECT MANAGER 06/23/20 23 Active mycophenolate mofetil (CELLCEPT) 500 mg tablet TAKE 3 TABLETS BY MOUTH TWICE DAILY 180 Tablet 4 07/10/2023 3:38 PM IT SECURITY PROJECT MANAGER 06/23/20 23 Active insulin glargine (LANTUS) 100 [...] for pain 30 Tablet 07/13/2024 12:19 PM IT SECURITY PROJECT MANAGER 04/27/20 24 Active methylPREDNISo lone (Medrol, Marvel,) [...] 23 Active fluticasone propionate (FLONASE) 50 mcg/spray [place], Suspension nasal inhaler Administer 2 Sprays in each nostril 1 time daily as needed. 02/24/20 23 Active folic acid (FOLVITE) 1 mg tablet 05/03/20 24 Active gabapentin (NEURONTIN) 300 mg capsule 05/03/20 24 Active glucagon (BAQSIMI) 3 mg/spray [place], Non-Aerosol Administer 1 [place] in each nostril. 11/17/19 24 Active insulin [...] daily. 120 Tablet 3 09/11/2024 3:51 PM IT SECURITY PROJECT MANAGER 06/17/20 24 Active venlafaxine (EFFEXOR XR) 150 mg Extended Release 24 hour capsule Take 1 capsule (150 mg total) by mouth daily 30 Capsule 07/13/2024 12:19 PM IT SECURITY PROJECT MANAGER 07/10/20 24 Active tirzepatide (Mounjaro) 10 mg/0.5 mL Pen Injector Inject 10 mg under the skin every 7 days 2 mL 3 09/29/2024 4:41 PM IT SECURITY PROJECT MANAGER 07/13/20 24 Active isosorbide dinitrate (ISORDIL) 5 [...] migh t be different from the original. Product Representative: Dr. 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 Not on file Not on file Not on file Last Filed Vital Signs Vital Sign Reading Time Taken Comments Blood Pressure 128/90 06/21/2024 10:51 AM IT SECURITY PROJECT MANAGER Pulse 82 03/22/2012 2:23 PM CDT Temperature - - Respiratory Rate 18 03/22/2012 2:23 PM CDT Oxygen Saturation 97% 03/22/2012 1:51 PM CDT Inhaled Oxygen Concentration - - Weight 141.2 kg (311 lb 3.2 oz) 024 10:51 AM IT SECURITY PROJECT MANAGER Height 167.6 cm (5' 6 ) 05/17/2024 11:2 7 AM CDT Body Mass Index 50.23 05/17/2024 11:27 AM CDT Plan of Treatment Upcoming Encounters Date Type Department Care Team (Late st Contact Info) Description 12/29/2024 11:30 AM CDT Office Visit [facility]3] LAB SUPPORT SERVICE TECH Medical [facility] [address] [address] [place] [id number] Kendrick Teague MD [facility] [address] [place] [address] Health Maintenance Due Date Last [...] PAP (05/17/2024 4:26 PM CDT) COMMENT (PAP): [facility] Comment: This order for age-based cervical cancer and STI screening follows ACOG guidelines(PB 168, 140, LFG040). See individual assays for performing site location. CLINICAL INFORMATION [facility] Comment:None given LAST MENSTRUAL PERIOD [facility] Comment:10/02/2023 PREV PAP: [facility] Comment:NONE GIVEN PREV BX: [facility] Comment:NONE GIVEN SOURCE [facility] Comment:Endocervix ADEQUACY: [facility] Comment: Satisfactory for evaluation. Endocervical/transformation zone component absent. PAP INTERP [facility] Comment: Cytology Results: Negative for intraepithelial lesion or malignancy. COMMENT (PAP TEST) [facility] Comment: This Pap test has been evaluated with computer assisted technology. VISUAL MERCHANDISER: Ni Ramirez Comment: MEF, CT(ASCP) CT screening location: [place] [address] [place] [address] EXPLANATORY NOTE [facility] Comment: EXPLANATORY NOTE: The Pap is [...] information. HPV E6/E7 Not Detected Not Detected [facility] Comment: Methodology: Composing Room Machinist Apprentice-Mediated Amplification This assay detects E6/E7 viral messenger RNA (mRNA) from 14 high-risk HPV types (16,18,31,33,35,39,45,51,52,56,58,59,66,68). Cervical sources are required for HPV testing. If a vaginal source from a patient who has had a total hysterectomy with removal of cervix was submitted, please contact the testing laboratory for alternative testing options. For additional information, please refer to http://education.ShopAdvisor/faq/SJR717k4 (This link if provided for information/ educational purposes only.) Test Performed at: [facility] [address] [place] [address] Torin GUZMAN Genital SWAB OF ENDOCERVIX / Unknown 05/17/2024 4:26 PM CDT 05/18/2024 3:48 AM CDT Kendrick Teague MD PATHOLOGY/CYTOLOGY ORDERABLE S Final Result [facility] [phone] [employer] [address] [place] [address] from Last 3 Months or Most Recently Relevant to Health Maintenance Insurance Agent Panda [id number] RX [employer] Member Subscriber Plan / Payer (Ef fective 2023-Present) Name:Walt Huitron Relation to Subscriber:Self Name:Walt Huitron Subscriber ID:Not on file Payer ID:Not on file Group ID:[id number] Type:RX Commercial Address: [place], [place] RX [employer] PLANS (INTERNAL) [facility] Care Teams Resilient Tile Installer Relationship Specialty Start Date End Date Masoud Hayes MD PCP - General Internal Medicine 03/08/12
--- OUTSIDE RECORDS SUMMARY | 2024-12-19 02:30 | XMS_ITS | Clinical Summary ---
Author Organization [facility] A Address [address] [place] [address] Care Team Providers Care Tank Truck Mechanic Name Role Phone Ann Serrano MD Unavailable [phone] Lynn Rodriguez MD Primary Care Provider Allergies [...] s:Uncontrolled type 2 diabetes mellitus with hyperglycemia (HCC),retirement (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) Use for [...] NEBULIZER EVERY 6 HOURS NEEDED FOR WHEEZING (RADIO EQUIPMENT INSTALLER RECOMMENDS NOT EXCEEDING 4 VIALS/DAY) 150 mL [...] 08/13/2024 Assessment & Plan (08/26/2024 6:09 PM POLE FRAMER): Recent hospitalization likely for CAP followed by RSV Symptoms resolved Impaired mobility 07/29/2024 retirement (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 07/13/2024 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 07/13/2024 Assessment & Plan (07/13/2024 12:22 PM POLE FRAMER): - Further complicates diabetes management Need for vaccination 04/06/2024 Assessment & Plan (04/06/2024 4:14 PM CDT): Received pneumonia vaccine today history of pneumonia currently no complaints last bout in 08/2023 Head trauma 09/04/2022 Assessment & Plan (09/04/2022 2:35 PM POLE FRAMER): No signs of neurological abnormality on examination [...] booster Assessment & Plan (06/24/2021 3:28 PM POLE FRAMER): Pito vaccine 10/05/2020 and Moderna booster Jun 2021 Major depressive disorder 04/22/2021 Assessment & Plan (01/06/2024 9:09 AM CDT): Stable on current medication regimen. Assessment & Plan (01/17/2022 10:21 AM CDT): Stable on current medication regimen. Assessment & Plan (07/17/2021 2:07 PM POLE FRAMER): Better controlled on venlafaxine. Assessment & Plan (04/22/2021 8:25 AM CDT): Restart venlafaxine and warned of side effects and call back if any develop or if no improvement. Type 2 diabetes mellitus with hyperlipidemia 06/2020 Assessment & Plan (01/06/2024 9:09 AM CDT): A1c above goal. Will start Mounjaro soon. Continue other medications as directed by her tank truck mechanic. Diet exercise discussed. Hopefully may be able to wean prednisone in the near future as well. Assessment & Plan (06/15/2023 10:48 AM POLE FRAMER): She knows that the steroids will exacerbate her hyperglycemia and should be in contact with her tank truck mechanic for management. Assessment & Plan (06/08/2023 5:26 PM POLE FRAMER): Poor control of her diabetes prior to this hospitalization and even worse now on prednisone. Follow-up with her tank truck mechanic for management. Diet exercise weight loss recommended. Assessment & Plan (01/21/2023 9:50 AM CDT): Blood sugars remain above goal. Hopefully the recent addition of mounjaro will help significantly. Discuss up titration of this and her mealtime insulin with her tank truck mechanic. Diet exercise discussed. Check A1c and fasting blood sugar before next visit. Assessment & Plan (08/02/2022 12:16 PM POLE FRAMER): A1c poorly controlled. Importance of diet exercise weight loss discussed at length. Continue her Ozempic and insulin and needs to contact her tank truck mechanic soon as possible for guidance on further therapy. Assessment & Plan (01/17/2022 10:22 AM CDT): Patient aware A1c grossly uncontrolled. Must work on diet exercise and weight loss. She has to get back on her insulin and should discuss this today with her tank truck mechanic. Risks posed her health with poor glycemic control discussed. Assessment & Plan (07/13/2020 8:34 AM POLE FRAMER): A1c above goal. Importance of diet exercise weight loss discussed. Continue current medication regimen and follow-up with her tank truck mechanic as they direct. 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 Unfortunately lab work and skin biopsy inconclusive. Discussed possible rheumatology 2nd opinion here at [facility] and patient will call back if desired. Assessment & Plan (06/15/2023 10:48 AM POLE FRAMER): Certainly making a case for underlying vasculitis [...] condition. Assessment & Plan (06/20/2020 9:35 AM POLE FRAMER): Unclear etiology but I am thinking of [...] tolerated Assessment & Plan (08/26/2024 6:10 PM POLE FRAMER): Body mass index is 49.1 kg/m . BMI Follow-up includes: nutrition counseling, exercise counseling, and education provided. Assessment & Plan (07/13/2024 12:20 PM POLE FRAMER): - Increase Mounjaro to 10 mg weekly [...] tolerated. Assessment & Plan (06/08/2023 5:23 PM POLE FRAMER): Patient is encouraged to lose weight with a combination of caloric reduction and increased exercise. Various strategies discussed. The long-term risks associated with continued morbid obesity discussed. Assessment & Plan (09/04/2022 2:34 PM POLE FRAMER): Patient is encouraged to lose weight with a combination of caloric reduction and increased exercise. Various strategies discussed. The long-term risks associated with continued morbid obesity discussed. Assessment & Plan (08/02/2022 12:16 PM POLE FRAMER): Patient is encouraged to lose weight with [...] discussed. Assessment & Plan (07/13/2020 8:34 AM POLE FRAMER): Patient is encouraged to lose weight with a combination of caloric reduction and increased exercise. Various strategies discussed. The long-term risks associated with continued morbid obesity discussed. Assessment & Plan (06/20/2020 9:35 AM POLE FRAMER): Patient is encouraged to lose weight with a combination of caloric reduction and increased exercise. Various strategies discussed. The long-term risks associated with continued morbid obesity discussed. Assessment & Plan (07/08/2019 8:44 AM POLE FRAMER): Patient is encouraged to lose weight with a combination of caloric reduction and increased exercise. Various strategies discussed. The long-term risks associated with continued morbid obesity discussed. Irregular menses 06/03/2019 Allergic rhinitis 07/05/2018 Assessment & Plan (02/23/2023 1:30 PM CDT): Nasal saline spray (Simply saline, Little Remedies, [place], [place]) 2 second sprays or 2 squeezes into [...] daily Assessment & Plan (07/17/2021 2:07 PM POLE FRAMER): Claritin montelukast. Assessment & Plan (04/22/2021 8:25 AM CDT): Currently using Claritin and montelukast. She has not been trying Flonase as her nose is being to congested. Recommended sinus rinses her using a hot warm shower. Could also try Afrin for few days. Assessment & Plan (07/08/2019 8:43 AM POLE FRAMER): Add montelukast to her Claritin. She struggles with nasal sprays due to chronic congestion. Assessment & Plan (07/05/2018 9:24 AM POLE FRAMER): Try Afrin for 3 days along with [...] mg/dL Assessment & Plan (07/13/2024 12:21 PM POLE FRAMER): - Last LDL 103, TG 308, TC [...] triglycerides. Assessment & Plan (09/12/2023 8:12 PM POLE FRAMER): Continue statin and optimize glycemic control Assessment & Plan (02/16/2023 8:14 PM CDT): Continue statin and optimize glycemic control Assessment & Plan (01/21/2023 9:50 AM CDT): Continue her atorvastatin and work on diet exercise and check lipids and LFTs before next visit. Assessment & Plan (08/02/2022 12:15 PM POLE FRAMER): Well controlled on current therapy and will check a lipid panel and LFTs in 6 months. Assessment & Plan (01/17/2022 10:21 AM CDT): Well controlled on current therapy and will check a lipid panel and LFTs in 6 months. Assessment & Plan (07/17/2021 2:06 PM POLE FRAMER): Well controlled on current therapy and will check a lipid panel and LFTs in 6 months. Assessment & Plan (06/24/2021 3:28 PM POLE FRAMER): Continue statin and optimize glycemic control Assessment & Plan (12/19/2020 7:53 AM CDT): Continue statin and optimize glycemic control Assessment & Plan (07/13/2020 8:34 AM POLE FRAMER): Well controlled on current therapy and will check a lipid panel and LFTs in 6 months. Assessment & Plan (06/08/2020 8:31 AM POLE FRAMER): LDL within goal. Continue statin and optimize glycemic control Assessment & Plan (07/08/2019 8:42 AM POLE FRAMER): Well controlled on current therapy and will check a lipid panel and LFTs in 12 months. Assessment & Plan (09/01/2018 2:22 PM POLE FRAMER): Continue statin, optimize glycemic control Assessment & Plan (07/05/2018 9:23 AM POLE FRAMER): Well controlled on current therapy and will check a lipid panel and LFTs in 6 months. Assessment & Plan (08/26/2017 4:27 PM POLE FRAMER): Start atorvastatin and check lipids and LFTs in 3-4 months. Call back for results. Vitamin D deficiency 07/02/2017 Assessment & Plan (07/13/2024 12:22 PM POLE FRAMER): - Last Vitamin D 42 (12/2023), replete [...] week Assessment & Plan (09/12/2023 8:12 PM POLE FRAMER): Continue long-term supplement Assessment & Plan (02/16/2023 8:14 PM CDT): Continue long-term supplement Assessment & Plan (08/02/2022 12:15 PM POLE FRAMER): Continue current supplementation and check level in 1 year. Assessment & Plan (07/17/2021 2:06 PM POLE FRAMER): Continue current supplementation and check level in 1 year. Assessment & Plan (06/24/2021 3:29 PM POLE FRAMER): Continue long-term supplement Assessment & Plan (12/19/2020 7:53 AM CDT): Continue long-term supplement Assessment & Plan (07/13/2020 8:33 AM POLE FRAMER): Continue current supplementation and check level in 1 year. Assessment & Plan (06/08/2020 8:31 AM POLE FRAMER): Vitamin-D level within goal, continue chronic supplement Assessment & Plan (07/08/2019 8:42 AM POLE FRAMER): Continue current supplementation and check level in 1 year. Assessment & Plan (06/03/2019 8:24 AM CDT): Recently ran out of supplement, so we will restart and check her level today. Also check B12 Assessment & Plan (09/01/2018 2:22 PM POLE FRAMER): Continue supplement Assessment & Plan (07/05/2018 9:23 AM POLE FRAMER): Continue current supplementation and check level in 1 year. Assessment & Plan (08/26/2017 4:26 PM POLE FRAMER): Continue current supplementation and check level in [...] Component Value Date HGBA1C 11.7 07/13/2024 Per [place] [employer], goal A1c is less 7% [...] that I am available via phone or Parallel Engineshart if they have any concerns for hypo/hyperglycemia, medication refills, etc. Assessment & Plan (08/26/2024 6:10 PM POLE FRAMER): Assessment & Plan (07/13/2024 12:20 PM POLE FRAMER): - Diabetes is complicated by hyperlipidemia, hypertension, morbid obesity and chronic steroid use. Uncontrolled. Lab Results Component Value Date HGBA1C 11.7 07/13/2024 Per [place] [employer], goal A1c is less 7% [...] in prescriptions for both Dexcom G7 and Platter Silva 3 CGM for olivares checking. Also [...] Return visit 3 months to see the FOUNDRY ENGINEER/PA, 6 months to see me. Assessment & [...] Component Value Date HGBA1C 12.5 11/17/2023 Per [place] [employer], goal A1c is less 7% [...] Component Value Date HGBA1C 12.5 11/17/2023 Per [place] [employer], goal A1c is less 7% without significant hypoglycemia. - Management Goal: re-start and adherence to medication regimen - Continue current medication regimen at this time. - Patient called local pharmacy to confirm that they do have prescriptions for her Semglee. She is going to curing pickling packer today after this visit. - Insurance does [...] etc. Assessment & Plan (09/12/2023 8:13 PM POLE FRAMER): Very high glucoses; multifactorial including steroid therapy, [...] daily. Assessment & Plan (06/24/2021 3:29 PM POLE FRAMER): Much improved but needs a little more basal insulin. Assessment & Plan (12/19/2020 7:53 AM CDT): Multiple medications, but now requires insulin. We can gradually adjust her Lantus based on her clinical response. Assessment & Plan (06/08/2020 8:32 AM POLE FRAMER): Glucoses somewhat better now that she is [...] motivator. Assessment & Plan (07/08/2019 8:43 AM POLE FRAMER): Continue increased dose of Ozempic and also continue Invokana. Importance of dietary changes increase exercise weight loss discussed. Follow-up with her tank truck mechanic as they direct. Assessment & Plan (06/03/2019 8:25 AM CDT): Somewhat suboptimal, would benefit from increasing Ozempic and continuing efforts with diet and lifestyle. Needs follow-up labs Assessment & Plan (09/01/2018 2:22 PM POLE FRAMER): Glucoses a little high, but she has bruising with Victoza so she may benefit by changing to weekly Ozempic, which is a little stronger, as well. Jardiance is been ineffective, so we may need to provide preauthorization for Invokana Assessment & Plan (07/05/2018 9:23 AM POLE FRAMER): A1c above goal. We stressed importance of increased exercise, reduce calories, weight loss. Could consider switching Victoza to ozempic. Otherwise does not tolerate metformin or sulfonylureas. May need insulin soon. She is directed to follow up with her tank truck mechanic more quickly than her next scheduled appointment in November. Assessment & Plan (08/26/2017 4:26 PM POLE FRAMER): Continue current medication regimen and follow up with her tank truck mechanic as they direct. Low carb diet weight loss recommended. Check blood sugars once daily. Start atorvastatin and check lipids and LFTs in 3-4 months. Anxiety state 12/17/2013 Overview (11/07/2016): ANXIETY STATE NOS Benign hypertension 12/17/2013 Overview (11/07/2016): BENIGN HYPERTENSION Assessment & Plan (07/13/2024 12:21 PM POLE FRAMER): - Above goal today - Encouraged her [...] monitor. Assessment & Plan (06/08/2023 5:25 PM POLE FRAMER): Stop amlodipine with current issues of swelling. Pressure currently well controlled and should monitor at home Assessment & Plan (01/21/2023 9:49 AM CDT): Blood pressure well controlled on lisinopril Assessment & Plan (09/04/2022 2:34 PM POLE FRAMER): Blood pressure well controlled on her lisinopril. Assessment & Plan (08/02/2022 12:15 PM POLE FRAMER): Increase lisinopril to 20 mg daily. Monitor blood pressure at home call back if no improvement. Assessment & Plan (01/17/2022 10:21 AM CDT): Well controlled on the current regimen. Avoidance of salt, proper body weight, and routine exercise recommended. Assessment & Plan (07/17/2021 2:06 PM POLE FRAMER): Well controlled on the current regimen. Avoidance of salt, proper body weight, and routine exercise recommended. Assessment & Plan (04/22/2021 8:24 AM CDT): Well controlled on the current regimen. Avoidance of salt, proper body weight, and routine exercise recommended. Assessment & Plan (07/13/2020 8:34 AM POLE FRAMER): Well controlled on the current regimen. Avoidance of salt, proper body weight, and routine exercise recommended. Assessment & Plan (07/08/2019 8:42 AM POLE FRAMER): Well controlled on the current regimen. Avoidance of salt, proper body weight, and routine exercise recommended. Assessment & Plan (09/01/2018 2:21 PM POLE FRAMER): Blood pressure close to target, working on diet and lifestyle Assessment & Plan (07/05/2018 9:23 AM POLE FRAMER): Well controlled on the current regimen. Avoidance of salt, proper body weight, and routine exercise recommended. Assessment & Plan (08/26/2017 4:25 PM POLE FRAMER): Well controlled on the current regimen. Avoidance of salt, proper body weight, and routine exercise recommended. Anemia 12/29/2012 Moderate persistent asthma without complication 08/19/2012 Overview (06/03/2019): Description: frequent flares Assessment & Plan (08/26/2024 6:08 PM POLE FRAMER): Recent exacerbation due to CAP followed by RSV Symptoms improved Continue present plan and medication--albuterol prn, montelukast Assessment & Plan (07/13/2020 8:36 AM POLE FRAMER): Doing well on her Symbicort. Okay to discontinue and use albuterol only as needed. Restart Symbicort if uses her albuterol more than 2 times a week. Sleep apnea syndrome 04/01/2012 Overview (11/12/2017) [id number]|2024-12-19 02:30:00|2024-12-19 02:29:00|XMS_ITS|JAKUB BEATTY|External Medical Summaries|[id number]|" Referral Summary Created on: December 19, 2024 Camila Huitron : 1975 Sex: Female Author Organization [facility] Building A Address [address] [place] [address] Care Team Providers Care Tank Truck Mechanic Name Role Phone Ann Serrano MD Unavailable [phone] Lynn Rodriguez MD Primary Care Provider Encounters Date Type Department Care Team Description 12/13/2024 2:30 PM CDT Office Visit [facility] Pulmonary at [address] [phone] Josiah Doan DO Moderate persistent asthma without complication (Primary Dx); Class 3 severe obesity due to excess calories with serious comorbidity and body mass index (BMI) of 45.0 to 49.9 in adult; Chronic hypoxic respiratory failure (HCC); retirement 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 user 11/30/2024 3:30 PM CDT Office Visit [facility] at [address] [phone] Minnie House NP Acute non-recurrent frontal sinusitis (Primary Dx) 11/09/2024 Results [facility] at [address] [phone] Josiah Doan DO Pulmonary Function Test - 11/09/2024 7:18 AM CDT - 11/09/2024 11:59 PM CDT Hospital Encounter [facility] Respiratory [address] [place] [address] Severe persistent asthma without complication (HCC) Discharge Disposition: Discharge to home or self care 11/07/2024 Results Follow-Up [facility] at [address] [phone] Karley Rubi, ERIN XR Chest Pa Lateral 2 Views 11/07/2024 2:30 PM CDT Ancillary Procedure [facility] Imaging at [address] [phone] Wheezing 11/07/2024 2:00 PM CDT Office Visit [facility] at [address] [phone] Karley Rubi, ERIN Sore throat (Primary Dx); Wheezing; History of asthma 11/01/2024 1:00 PM CDT Office Visit [facility] Pulmonary at [address] [phone] Josiah Doan DO Severe persistent asthma without complication (HCC) (Primary Dx); Obstructive sleep apnea; Immunosuppression due to drug therapy; Class 3 severe obesity due to excess calories with serious comorbidity and body mass index (BMI) of 45.0 to 49.9 in adult 10/25/2024 Telephone [facility] Endocrinology Metabolism and Lipid [address] [facility] [address] [place] [address] [place] [phone] Leisa Arenas, RN eye exam 10/25/2024 Orders Only [facility] Endocrinology Metabolism and Lipid [address] [facility] [address] [place] [address] [place] [phone] ProviderStephenie MD 10/12/2024 9:00 AM CDT Telemedicine [facility] Endocrinology Metabolism and Lipid [address] [facility] [address] [place] [address] [place] [phone] Shirley Teixeira PA Uncontrolled type 2 diabetes mellitus with hyperglycemia (HCC) (Primary Dx); Mixed hyperlipidemia; Class 3 severe obesity due to excess calories with serious comorbidity and body mass index (BMI) of 45.0 to 49.9 in adult (HCC); retirement (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); retirement 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 user 10/07/2024 Ancillary Procedure [facility] [...] mg total) by mouth daily 30 tablet Active clobetasoL (TEMOVATE) 0.05 % ointment APPLY TO AFFECTED AREA(S) TWICE DAILY FOR 2 WEEKS Active hydroxychloroqui ne (PLAQUENIL) 200 mg tablet [...] daily. 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 07/13/2024 Assessment & Plan (07/13/2024 12:22 PM POLE FRAMER): - Further complicates diabetes management Need for vaccination 04/06/2024 Assessment & Plan (04/06/2024 4:14 PM CDT): Received pneumonia vaccine today history of pneumonia currently no complaints last bout in 08/2023 Head trauma 09/04/2022 Assessment & Plan (09/04/2022 2:35 PM POLE FRAMER): No signs of neurological abnormality on examination [...] booster Assessment & Plan (06/24/2021 3:28 PM POLE FRAMER): Pito vaccine 10/05/2020 and Moderna booster Jun 2021 Major depressive disorder 04/22/2021 Assessment & Plan (01/06/2024 9:09 AM CDT): Stable on current medication regimen. Assessment & Plan (01/17/2022 10:21 AM CDT): Stable on current medication regimen. Assessment & Plan (07/17/2021 2:07 PM POLE FRAMER): Better controlled on venlafaxine. Assessment & Plan (04/22/2021 8:25 AM CDT): Restart venlafaxine and warned of side effects and call back if any develop or if no improvement. Type 2 diabetes mellitus with hyperlipidemia 06/2020 Assessment & Plan (01/06/2024 9:09 AM CDT): A1c above goal. Will start Mounjaro soon. Continue other medications as directed by her tank truck mechanic. Diet exercise discussed. Hopefully may be able to wean prednisone in the near future as well. Assessment & Plan (06/15/2023 10:48 AM POLE FRAMER): She knows that the steroids will exacerbate her hyperglycemia and should be in contact with her tank truck mechanic for management. Assessment & Plan (06/08/2023 5:26 PM POLE FRAMER): Poor control of her diabetes prior to this hospitalization and even worse now on prednisone. Follow-up with her tank truck mechanic for management. Diet exercise weight loss recommended. Assessment & Plan (01/21/2023 9:50 AM CDT): Blood sugars remain above goal. Hopefully the recent addition of mounjaro will help significantly. Discuss up titration of this and her mealtime insulin with her tank truck mechanic. Diet exercise discussed. Check A1c and fasting blood sugar before next visit. Assessment & Plan (08/02/2022 12:16 PM POLE FRAMER): A1c poorly controlled. Importance of diet exercise weight loss discussed at length. Continue her Ozempic and insulin and needs to contact her tank truck mechanic soon as possible for guidance on further therapy. Assessment & Plan (01/17/2022 10:22 AM CDT): Patient aware A1c grossly uncontrolled. Must work on diet exercise and weight loss. She has to get back on her insulin and should discuss this today with her tank truck mechanic. Risks posed her health with poor glycemic control discussed. Assessment & Plan (07/13/2020 8:34 AM POLE FRAMER): A1c above goal. Importance of diet exercise weight loss discussed. Continue current medication regimen and follow-up with her tank truck mechanic as they direct. 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 Unfortunately lab work and skin biopsy inconclusive. Discussed possible rheumatology 2nd opinion here at [facility] and patient will call back if desired. Assessment & Plan (06/15/2023 10:48 AM POLE FRAMER): Certainly making a case for underlying vasculitis [...] condition. Assessment & Plan (06/20/2020 9:35 AM POLE FRAMER): Unclear etiology but I am thinking of [...] tolerated Assessment & Plan (08/26/2024 6:10 PM POLE FRAMER): Body mass index is 49.1 kg/m . BMI Follow-up includes: nutrition counseling, exercise counseling, and education provided. Assessment & Plan (07/13/2024 12:20 PM POLE FRAMER): - Increase Mounjaro to 10 mg weekly [...] tolerated. Assessment & Plan (06/08/2023 5:23 PM POLE FRAMER): Patient is encouraged to lose weight with a combination of caloric reduction and increased exercise. Various strategies discussed. The long-term risks associated with continued morbid obesity discussed. Assessment & Plan (09/04/2022 2:34 PM POLE FRAMER): Patient is encouraged to lose weight with a combination of caloric reduction and increased exercise. Various strategies discussed. The long-term risks associated with continued morbid obesity discussed. Assessment & Plan (08/02/2022 12:16 PM POLE FRAMER): Patient is encouraged to lose weight with [...] discussed. Assessment & Plan (07/13/2020 8:34 AM POLE FRAMER): Patient is encouraged to lose weight with a combination of caloric reduction and increased exercise. Various strategies discussed. The long-term risks associated with continued morbid obesity discussed. Assessment & Plan (06/20/2020 9:35 AM POLE FRAMER): Patient is encouraged to lose weight with a combination of caloric reduction and increased exercise. Various strategies discussed. The long-term risks associated with continued morbid obesity discussed. Assessment & Plan (07/08/2019 8:44 AM POLE FRAMER): Patient is encouraged to lose weight with a combination of caloric reduction and increased exercise. Various strategies discussed. The long-term risks associated with continued morbid obesity discussed. Irregular menses 06/03/2019 Allergic rhinitis 07/05/2018 Assessment & Plan (02/23/2023 1:30 PM CDT): Nasal saline spray (Simply saline, Little Remedies, [place], [place]) 2 second sprays or 2 squeezes into [...] daily Assessment & Plan (07/17/2021 2:07 PM POLE FRAMER): Claritin montelukast. Assessment & Plan (04/22/2021 8:25 AM CDT): Currently using Claritin and montelukast. She has not been trying Flonase as her nose is being to congested. Recommended sinus rinses her using a hot warm shower. Could also try Afrin for few days. Assessment & Plan (07/08/2019 8:43 AM POLE FRAMER): Add montelukast to her Claritin. She struggles with nasal sprays due to chronic congestion. Assessment & Plan (07/05/2018 9:24 AM POLE FRAMER): Try Afrin for 3 days along with [...] mg/dL Assessment & Plan (07/13/2024 12:21 PM POLE FRAMER): - Last LDL 103, TG 308, TC [...] triglycerides. Assessment & Plan (09/12/2023 8:12 PM POLE FRAMER): Continue statin and optimize glycemic control Assessment & Plan (02/16/2023 8:14 PM CDT): Continue statin and optimize glycemic control Assessment & Plan (01/21/2023 9:50 AM CDT): Continue her atorvastatin and work on diet exercise and check lipids and LFTs before next visit. Assessment & Plan (08/02/2022 12:15 PM POLE FRAMER): Well controlled on current therapy and will check a lipid panel and LFTs in 6 months. Assessment & Plan (01/17/2022 10:21 AM CDT): Well controlled on current therapy and will check a lipid panel and LFTs in 6 months. Assessment & Plan (07/17/2021 2:06 PM POLE FRAMER): Well controlled on current therapy and will check a lipid panel and LFTs in 6 months. Assessment & Plan (06/24/2021 3:28 PM POLE FRAMER): Continue statin and optimize glycemic control Assessment & Plan (12/19/2020 7:53 AM CDT): Continue statin and optimize glycemic control Assessment & Plan (07/13/2020 8:34 AM POLE FRAMER): Well controlled on current therapy and will check a lipid panel and LFTs in 6 months. Assessment & Plan (06/08/2020 8:31 AM POLE FRAMER): LDL within goal. Continue statin and optimize glycemic control Assessment & Plan (07/08/2019 8:42 AM POLE FRAMER): Well controlled on current therapy and will check a lipid panel and LFTs in 12 months. Assessment & Plan (09/01/2018 2:22 PM POLE FRAMER): Continue statin, optimize glycemic control Assessment & Plan (07/05/2018 9:23 AM POLE FRAMER): Well controlled on current therapy and will check a lipid panel and LFTs in 6 months. Assessment & Plan (08/26/2017 4:27 PM POLE FRAMER): Start atorvastatin and check lipids and LFTs in 3-4 months. Call back for results. Vitamin D deficiency 07/02/2017 Assessment & Plan (07/13/2024 12:22 PM POLE FRAMER): - Last Vitamin D 42 (12/2023), replete [...] week Assessment & Plan (09/12/2023 8:12 PM POLE FRAMER): Continue long-term supplement Assessment & Plan (02/16/2023 8:14 PM CDT): Continue long-term supplement Assessment & Plan (08/02/2022 12:15 PM POLE FRAMER): Continue current supplementation and check level in 1 year. Assessment & Plan (07/17/2021 2:06 PM POLE FRAMER): Continue current supplementation and check level in 1 year. Assessment & Plan (06/24/2021 3:29 PM POLE FRAMER): Continue long-term supplement Assessment & Plan (12/19/2020 7:53 AM CDT): Continue long-term supplement Assessment & Plan (07/13/2020 8:33 AM POLE FRAMER): Continue current supplementation and check level in 1 year. Assessment & Plan (06/08/2020 8:31 AM POLE FRAMER): Vitamin-D level within goal, continue chronic supplement Assessment & Plan (07/08/2019 8:42 AM POLE FRAMER): Continue current supplementation and check level in 1 year. Assessment & Plan (06/03/2019 8:24 AM CDT): Recently ran out of supplement, so we will restart and check her level today. Also check B12 Assessment & Plan (09/01/2018 2:22 PM POLE FRAMER): Continue supplement Assessment & Plan (07/05/2018 9:23 AM POLE FRAMER): Continue current supplementation and check level in 1 year. Assessment & Plan (08/26/2017 4:26 PM POLE FRAMER): Continue current supplementation and check level in [...] Component Value Date HGBA1C 11.7 07/13/2024 Per [place] [employer], goal A1c is less 7% [...] that I am available via phone or Parallel Engineshart if they have any concerns for hypo/hyperglycemia, medication refills, etc. Assessment & Plan (08/26/2024 6:10 PM POLE FRAMER): Assessment & Plan (07/13/2024 12:20 PM POLE FRAMER): - Diabetes is complicated by hyperlipidemia, hypertension, morbid obesity and chronic steroid use. Uncontrolled. Lab Results Component Value Date HGBA1C 11.7 07/13/2024 Per [place] [employer], goal A1c is less 7% [...] in prescriptions for both Dexcom G7 and Platter Silva 3 CGM for olivares checking. Also [...] Return visit 3 months to see the FOUNDRY ENGINEER/PA, 6 months to see me. Assessment & [...] Component Value Date HGBA1C 12.5 11/17/2023 Per [place] [employer], goal A1c is less 7% [...] that I am available via phone or Alliance Cardt if they have any concerns for hypo/hyperglycemia, medication refills, etc. Assessment & Plan (11/18/2023 8:23 AM CDT): - Diabetes is complicated by HTN, HLD, steroid use, hyperglycemia and obesity. Uncontrolled. Lab Results Component Value Date HGBA1C 12.5 11/17/2023 Per [place] [employer], goal A1c is less 7% without significant hypoglycemia. - Management Goal: re-start and adherence to medication regimen - Continue current medication regimen at this time. - Patient called local pharmacy to confirm that they do have prescriptions for her Semglee. She is going to curing pickling packer today after this visit. - Insurance does [...] etc. Assessment & Plan (09/12/2023 8:13 PM POLE FRAMER): Very high glucoses; multifactorial including steroid therapy, [...] daily. Assessment & Plan (06/24/2021 3:29 PM POLE FRAMER): Much improved but needs a little more basal insulin. Assessment & Plan (12/19/2020 7:53 AM CDT): Multiple medications, but now requires insulin. We can gradually adjust her Lantus based on her clinical response. Assessment & Plan (06/08/2020 8:32 AM POLE FRAMER): Glucoses somewhat better now that she is [...] motivator. Assessment & Plan (07/08/2019 8:43 AM POLE FRAMER): Continue increased dose of Ozempic and also continue Invokana. Importance of dietary changes increase exercise weight loss discussed. Follow-up with her tank truck mechanic as they direct. Assessment & Plan (06/03/2019 8:25 AM CDT): Somewhat suboptimal, would benefit from increasing Ozempic and continuing efforts with diet and lifestyle. Needs follow-up labs Assessment & Plan (09/01/2018 2:22 PM POLE FRAMER): Glucoses a little high, but she has bruising with Victoza so she may benefit by changing to weekly Ozempic, which is a little stronger, as well. Jardiance is been ineffective, so we may need to provide preauthorization for Invokana Assessment & Plan (07/05/2018 9:23 AM POLE FRAMER): A1c above goal. We stressed importance of increased exercise, reduce calories, weight loss. Could consider switching Victoza to ozempic. Otherwise does not tolerate metformin or sulfonylureas. May need insulin soon. She is directed to follow up with her tank truck mechanic more quickly than her next scheduled appointment in November. Assessment & Plan (08/26/2017 4:26 PM POLE FRAMER): Continue current medication regimen and follow up with her tank truck mechanic as they direct. Low carb diet weight loss recommended. Check blood sugars once daily. Start atorvastatin and check lipids and LFTs in 3-4 months. Anxiety state 12/17/2013 Overview (11/07/2016): ANXIETY STATE NOS Benign hypertension 12/17/2013 Overview (11/07/2016): BENIGN HYPERTENSION
--- OUTSIDE RECORDS SUMMARY | 2024-12-19 02:30 | XMS_ITS | Encounter Summary ---
Author Organization [facility] Health Address [address] [place] [address] Care Team Providers Care Dairy Husbandry Worker Name Role Phone Tiffany Cox MD Primary Care Provider Unavailable Kishor Saleh MD Primary Care Provider [phone] Encounter Details Date Type Department Care Team (Late st Contact Info) Description 07/03/2023 Lab Requisition [facility] [address] [place] [id number] [place] [address] [facility] [address] S[place] [address] [place] [address] Social History Tobacco Use Types Packs/Day Years Used Date Smoking Tobacco: Never Assessed Comments Unknown Sex and Gender Information Value Date Recorded Sex Assigned at Not on file Legal Sex Female 4:50 AM COMMERCIAL DRIVER'S LICENSE DRIVER Gender Identity Not on file Sexual Orientation Not on file documented as of this encounter Plan of Treatment Not on file documented as of this encounter Visit Diagnoses Not on filedocumented in this encounter Additional Health Concerns Infection Onset Date Last Indicated Resolved Time COVID-19 Under Investigation 08/13/2024 08/13/2024 08/13/2024 11:30 PM COMMERCIAL DRIVER'S LICENSE DRIVER documented as of this encounter Care Teams Dairy Husbandry Worker Relationship Specialty Start Date End Date Tiffany Cox MD PCP - General Internal Medicine 05/16/13 07/30/23 Kishor Saleh MD [address] [place] [address] DR S[address] [place] [address] PCP - General Internal Medicine 07/31/23 documented as of this encounter
--- OUTSIDE RECORDS SUMMARY | 2024-12-19 02:30 | XMS_ITS | Continuity of Care Document ---
Author Organization [facility] Address [address] [place] [address] Phone Care Team Providers Care Hris Developer Name Role Phone Tiffany Cox MD Unavailable [...] puff - Active Flonase 50 mcg/actuation Nasal [place] spray 1 spray by intranasal route every [...] Diagnoses Date Provider Providers Copied on Encounter [facility], [address], [place], [place], [id number] , tel: [phone] [facility] No Information 5 Damien Allen. [address] [place] [address], [id number]. tel:[phone] [facility], [address], [place], [place], [id number] , [place] tel: [phone] [facility] No Information 5-201 5 Damien Allen. [address] [place] [address], [id number]. tel:[phone] [facility], [address], [place], [place], [address] , [place] tel: [phone] [facility] No Information 4 Damien Zulma Allen. [address] [place] [address], [facility] [address], [place], [place], [id number]. tel:[phone] [facility], [address], [place], [place], [address] , [place] tel: [phone] [facility] No Information 3 Knott Threats Tiffany. [address] [place] [address], [facility] [address], [place], [place], [id number]. tel:[phone] [facility], [address], [place], [place], [address] , [place] tel: [phone] [facility] Strain of right knee and leg 3 Shahmarcell Castellanos. [address] [place] [address], [facility], [place], [place], [address], [place]. tel:[phone] Referring Provider: Tiffany Maya, [address] [place] [address], [place], [address] . tel:[phone] [facility], [address], [place], [place], [address] , [place] tel: [phone] [facility] No Information 3 Damienmissy Allen. [address] [place] [address], [facility] [address], [place], [place], [address]. tel:[phone] [facility], [address], [place], [place], [address] , [place] tel: [phone] [facility] Type II diabetes mellitusDyslipidemi aContact with or exposure to tuberculosis 3 Knott Zulma Carrizalesan. [address] [place] [address] 107, [place], [place], [address]. tel:[phone] Referring Provider: Tiffany Maya, [address] [place] [address] 107, [place], [address] . tel:[phone] [facility], [address], [place], [place], [address] , [place] tel: [phone] [facility] Diabetes mellitus without mention of complication, type II or unspecified type, uncontrolledAllergi c rhinitis, cause unspecifiedExtrinsi c asthmaMorbid obesityDiabetes mellitus without mention of complication, type II or unspecified type, not stated as uncontrolled 0 3 Damien Allen. [address] [place] [address], [place] [address], [place], [place], [id number]. tel:[phone] Referring Provider: Tiffany Maya, [address] [place] [address], [place], [address] . tel:[phone] [facility], [address], [place], [place], [address] , tel: [phone] [facility] No Information 3 Damien Allen. [address] [place] [address], [id number]. tel:[phone] [facility], [address], [place], [place], [address] , [place] tel: [phone] [facility] No Information 3 Sarah Cutler. [address] [place] [address], [place], [place], [address], [place]. tel:[phone] [facility], [address], [place], [place], [address] , tel: [phone] [facility] Bronchitis, not specified as acute or chronicBronchitis, not specified as acute or chronic 3 Damien Allen. [address] [place] [address], [address], [id number]. tel:[phone] Referring Provider: Tiffany Maya, [address] [place] [address], [place], [address] . tel:[phone] [facility], [address], [place], [place], [address] , tel: [phone] [facility] No Information 0 3 Sarah Cutler. [address], [address], [place], [place], [address], [place]. [phone] [facility], [address], [place], [place], [address] , tel: [phone] [facility] Diabetes mellitus without mention of complication, type II or unspecified type, uncontrolledEdemaIn fertility, female, associated with anovulationAllergic rhinitis, cause unspecifiedRoutine medical examMorbid obesityIrregular menses 3 Damien Maya Tiffany. [address], [address], [place], [place], [address]. [phone] Referring Provider: Tiffany Maya, [facility], [place], [address] . tel:[phone] Family History Family Member Type Diagnosis Age [...] type Covered constitution party ID Authoriza tion(s) [employer] [employer] [employer] [place] OPEN ACCESS I II III CI [id number] Social History Type Description Quantity Date Captured [...]
--- OUTSIDE RECORDS SUMMARY | 2024-12-19 02:30 | XMS_ITS | Encounter Summary ---
Author Organization [facility] Healthcare Address [address] [place] [address] Care Team Providers Care Calender Supervisor Name Role Phone Ann Serrano MD Unavailable [phone] Lynn Rodriguez MD Primary Care Provider Encounter Details Date Type Department Care Team (Late st Contact Info) Description 11/07/2024 Results Follow-Up [facility] at [address] [address] Karley Rubi, HAND CIGAR MAKER [address] [place] [address] [address] [place] [address] XR Chest Pa Lateral 2 [...] on file Legal Sex Female 11:54 PM PSYCHOLOGY DEPARTMENT CHAIR Gender Identity Female 09/19/2020 8:37 AM PSYCHOLOGY DEPARTMENT CHAIR Sexual Orientation Straight 09/19/2020 8: 37 AM PSYCHOLOGY DEPARTMENT CHAIR documented as of this encounter Plan of Treatment Not on file documented as of this encounter Visit Diagnoses Not on filedocumented in this encounter Additional Health Concerns Infection Onset Date Last Indicated Resolved Time COVID: Suspected 11/07/2024 11/07/2024 11/07/2024 2:20 PM CDT documented as of this encounter Care Teams Calender Supervisor Relationship Specialty [place] [address] [place] [address] PCP - General Internal Medicine 04/06/24 Ann Serrano MD Referring Physician Endocrinology Diabetes & Metabolism 06/08/20 documented as of this encounter
--- OUTSIDE RECORDS SUMMARY | 2024-12-19 02:30 | XMS_ITS | Encounter Summary ---
Author Organization [facility] Health Address [address] [facility] [place] [address] Care Team Providers Care Cutter Gas Name Role Phone Tiffany Cox MD Primary Care Provider Unavailable Kishor Saleh MD Primary Care Provider [phone] Encounter Details Date Type Department Care Team (Late st Contact Info) Description 07/03/2023 Lab Requisition [facility] [address] [place] [id number] [place] [address] [facility] [address] S[place] [address] [place] [address] Social History Tobacco Use Types Packs/Day Years Used Date Smoking Tobacco: Never Assessed Comments Unknown Sex and Gender Information Value Date Recorded Sex Assigned at Not on file Legal Sex Female 4:50 AM MEDICAL TECHNOLOGIST GENERALIST Gender Identity Not on file Sexual Orientation Not on file documented as of this encounter Plan of Treatment Not on file documented as of this encounter Visit Diagnoses Not on filedocumented in this encounter Additional Health Concerns Infection Onset Date Last Indicated Resolved Time COVID-19 Under Investigation 08/13/2024 08/13/2024 08/13/2024 11:30 PM MEDICAL TECHNOLOGIST GENERALIST documented as of this encounter Care Teams Cutter Gas Relationship Specialty Start Date End Date Tiffany Cox MD PCP - General Internal Medicine 05/16/13 07/30/23 Kishor Saleh MD [address] [place] [address] [address] [place] [address] [place] [address] PCP - General Internal Medicine 07/31/23 documented as of this encounter
--- OUTSIDE RECORDS SUMMARY | 2024-12-19 02:30 | XMS_ITS | Encounter Summary ---
Author Organization [facility] Address [address] [place] [address] Phone Care Team Providers Care Assistant Professor Of Criminal Justice Name Role Phone Kishor Saleh MD Primary Care Provider [phone] Ann Serrano MD Unavailable [phone] No, Physician Primary Care Provider [phone] Kishor Saleh MD Primary Care Provider [phone] Lynn Rodriguez MD Primary Care Provider Encounter Details Date Type Department Care Team (Late st Contact Info) Description 09/30/2017 Orders Only [facility] ProviderStephenie MD [address] [place] [address] Social History Tobacco Use Types Packs/Day Years Used Date Smoking Tobacco: Never Smokeless Tobacco: Never Alcohol Use Standard Drinks/Week Comments No 0 (1 standard drink = 0.6 oz pur e alcohol) Comments Unknown Sex and Gender Information Value Date Recorded Sex Assigned at Not on file Legal Sex Female 11:54 PM POULTRY FARMWORKER Gender Identity Female 09/19/2020 8:37 AM POULTRY FARMWORKER Sexual Orientation Straight 09/19/2020 8: 37 AM POULTRY FARMWORKER documented as of this encounter Plan of Treatment Not on file documented as of this encounter Procedures Procedure Name Priority Date/Time Associated Diagnosis Comments DISCHARGE LABORATORY CUMULATIVE REPORT 09/30/2017 12:00 AM POULTRY FARMWORKER documented in this encounter Results * DISCHARGE LABORATORY CUMULATIVE REPORT (09/30/2017 12:00 AM POULTRY FARMWORKER) Narrative 09/30/2017 12:00 AM POULTRY FARMWORKER Ordered by an unspecified provider. us Historical Provider LAB BLOOD ORDERABLES Flora l Result documented in this encounter Visit Diagnoses Not on filedocumented in this encounter Additional Health Concerns Infection Onset Date Last Indicated Resolved Time COVID: Suspected 08/13/2022 08/13/2022 08/13/2022 1:16 PM POULTRY FARMWORKER COVID: Suspected 11/07/2024 11/07/2024 11/07/2024 2:20 PM CDT documented as of this encounter Care Teams Assistant Professor Of Criminal Justice Relationship Specialty Start Date End Date Kishor Saleh MD PCP - General 09/28/08 11/16/23 No, Physician PCP - General 11/17/23 12/28/23 Kishor Saleh MD [address] [facility] [address] [address] PCP - General Internal Medicine 12/29/23 04/05/24 [place] [address] [facility] [address] [place] [address] PCP - General Internal Medicine 04/06/24 Ann Serrano MD Referring Physician Endocrinology Diabetes & Metabolism 06/08/20 documented as of this encounter
--- OUTSIDE RECORDS SUMMARY | 2024-12-19 02:30 | XMS_ITS | Encounter Summary ---
Author Organization [facility] Health Address [address] [facility] [place] [address] Care Team Providers Care Senior Oracle Adf Developer Name Role Phone Tiffany oCx MD Primary Care Provider Unavailable Kishor Saleh MD Primary Care Provider [phone] Encounter Details Date Type Department Care Team (Late st Contact Info) Description 07/03/2023 Lab Requisition [facility] [address] [place] [phone] [place] [address] [facility] [address] [place] [address] [place] [address] Social History Tobacco Use Types Packs/Day Years Used Date Smoking Tobacco: Never Assessed Comments Unknown Sex and Gender Information Value Date Recorded Sex Assigned at Not on file Legal Sex Female 4:50 AM THERAPEUTIC CONSULTANT Gender Identity Not on file Sexual Orientation Not on file documented as of this encounter Plan of Treatment Not on file documented as of this encounter Visit Diagnoses Not on filedocumented in this encounter Additional Health Concerns Infection Onset Date Last Indicated Resolved Time COVID-19 Under Investigation 08/13/2024 08/13/2024 08/13/2024 11:30 PM THERAPEUTIC CONSULTANT documented as of this encounter Care Teams Senior Oracle Adf Developer Relationship Specialty Start Date End Date Tiffany Cox MD PCP - General Internal Medicine 05/16/13 07/30/23 Kishor Saleh MD [address] [place] [address] [address] [place] [address] [place] [address] PCP - General Internal Medicine 07/31/23 documented as of this encounter
--- OUTSIDE RECORDS SUMMARY | 2024-12-19 02:30 | XMS_ITS | Encounter Summary ---
Author Organization [facility] Address [address] [place] [address] Care Team Providers Care Client Account Specialist Name Role Phone Tiffany Cox MD Primary Care Provider Unavailable Kishor Saleh MD Primary Care Provider Encounter Details Date Type Department Care Team (Late st Contact Info) Description 07/03/2023 Lab Requisition [facility] [address] [place] [address] [place] [id number] [address] Social History Tobacco Use Types Packs/Day Years Used Date Smoking Tobacco: Never Assessed Comments Unknown Sex and Gender Information Value Date Recorded Sex Assigned at Not on file Legal Sex Female 4:50 AM TRAINING AND QUALITY MANAGER Gender Identity Not on file Sexual Orientation Not on file documented as of this encounter Plan of Treatment Not on file documented as of this encounter Procedures Procedure Name Priority Date/Time Associated Diagnosis Comments IMMUNOFLUORESCENT STUDY DERM Routine 07/01/2023 3:33 AM TRAINING AND QUALITY MANAGER documented in this encounter Results * IMMUNOFLUORESCENT STUDY DERM (07/01/2023 3:33 AM TRAINING AND QUALITY MANAGER) Case Report Dermatopathol ogy Report Case: [id number] Authorizing Provider: Kendrick Christopher MD Collected: 07/01/2023 03:33 AM Ordering Location: [facility] Received: 07/03/2023 12:13 PM Pathologist: Bella cShwab MD Specimen: Skin, right superior han 3:46 PM [facility]ER[facility] Final Diagnosis Specimen A. SKIN, right superior han: COLLOID BODIES (L98.9) (see microscopic description) (see fixed tissue results) 3:46 PM TRAINING AND QUALITY MANAGER DERMATOPATHOLOGY LABORATORY Direct Immunofluorescence Report - Specimen A Specimen A IgA IgM IgG C3 CollV Fibrinogen Epidermis Negative Negative Negative Negative Negative Negative Basement Membrane Negative Negative Negative Negative 2+ Negative Vessels Negative Negative Negative Negative 2+ Negative Interstitium Colloid Colloid Colloid Negative Negative Non specific 3 3:46 PM TRAINING AND QUALITY MANAGER DERMATOPATHOLOGY LABORATORY Clinical History Rash; R/O Leukocytoclas tic Vasculitis, Livedo Reticularis 3:46 PM TRAINING AND QUALITY MANAGER DERMATOPATHOLOGY LABORATORY Gross Description Specimen A: Received is one Jatinder's media filled container labeled with the patient's name and designated right superior han. The specimen consists of a punch biopsy measuring 5x4x4 mm. The specimen is submitted in whole for direct immunofluores cence testing. 3:46 PM [facility]ERMAT[facility] Microscopic [...] rubbing. See fixed tissue results. 3:46 PM TRAINING AND QUALITY MANAGER DERMATOPATHOLOGY LABORATORY Disclaimer An external and internal positive and negative controls are appropriate for the histochemical , immunohistoch emical and immunofluores cence stain(s) in this case (if any), except where stated explicitly. The performance characteristi cs of the stain(s) cited in this report were developed and its performance characteristi c determined by the Dermatopathol ogy Laboratory at [facility], directed by Dr. Arnol Perea. These tests need not be, and therefore are not, approved by the [place] Food and Drug Administratio n. The tests are used for clinical purposes. Billing Codes Specimen Charges Stain Charges 19426 [id number] 1 1 1 1 1 1 3 3:46 PM TRAINING AND QUALITY MANAGER DERMATOPATHOLOGY LABORATORY Embedded Images 3 3:46 PM TRAINING AND QUALITY MANAGER DERMATOPATHOLOGY LABORATORY Pathology/Cytolo gy TISSUE SPECIMEN FROM SKIN / Unknown 07/01/2023 3:33 AM TRAINING AND QUALITY MANAGER 07/03/2023 12:13 PM TRAINING AND QUALITY MANAGER Kendrick Christopher MD LAB - PATHOLOGY/CYTOLOGY O RDERABLES Final Result DERMATOPATHOLOGY LABORATORY [facility] - Department of Dermatology [address] [phone] documented in this encounter Visit Diagnoses Not on filedocumented in this encounter Additional Health Concerns Infection Onset Date Last Indicated Resolved Time COVID-19 Under Investigation 08/13/2024 08/13/2024 08/13/2024 11:30 PM TRAINING AND QUALITY MANAGER documented as of this encounter Care Teams Client Account Specialist Relationship Specialty Start Date End Date Tiffany Cox MD PCP - General Internal Medicine 05/16/13 07/30/23 Kishor Saleh MD [address] [place] [address] [address] [place] [id number] PCP - General Internal Medicine 07/31/23 documented as of this encounter
[2024-12-19 02:32] LABS: Basophils Absolute Auto 0.1 K/mm3 (0.0-0.1); Basophils Percent Auto 0.3 % (0.2-1.2); Eosinophils Percent Auto 0.1 % (0-4.4); Hematocrit 37.8 % (37.0-47.0); Hemoglobin 11.7 g/dL (12.0-15.0); Immature Granulocyte Absolute 0.26 K/mm3 (0.00-0.031); Immature Granulocyte Percent A 1.5 % (0-0.5); Lymphocytes Absolute Auto 1.52 K/mm3 (0.9-3.2); Lymphocytes Percent Auto 8.8 % (18.3-44.2); Mean Corpuscular Hemoglobin 28.7 pg (26-34); Mean Corpuscular Volume 92.6 fl (80-100); Mean Platelet Volume 10.3 fl (7.4-10.4); Monocytes Absolute Auto 1.2 K/mm3 (0.1-0.6); Monocytes Percent Auto 7.1 % (2.6-8.5); Neutrophils Absolute Auto 14.2 K/mm3 (1.3-6.7); Neutrophils Percent Auto 82.2 % (45.5-73.1); Platelet Count Result 365 k/mm3 (150-375); Red Blood Count 4.08 M/mm3 (4.2-5.4); White Blood Count 17.3 K/mm3 (4.5-10.0)
[2024-12-19 02:40] LABS: Alanine Aminotransferase 57 U/L (6-35); Alkaline Phosphatase 65 U/L (38-126); Anion Gap 9 mmol/L (4-12); Aspartate Amino Transferase 31 U/L (14-36); Bilirubin,Total 0.3 mg/dL (0.2-1.3); Blood Urea Nitrogen 15 mg/dL (7-17); Carbon Dioxide 27 mmol/L (22-30); Chloride 100 mmol/L (98-107); Estimated CRCL calculation 136 ml/min; Estimated Glomerular Filt Rate > 60; Glucose 282 mg/dL (65-110); Lipase 265 U/L (23-300); Potassium 3.8 mmol/L (3.4-5.0); Sodium 136 mmol/L (137-145)
[2024-12-19] MEDS: diphenhydrAMINE HCl INJ 50 MG/ML VIAL 25 MG IV PUSH (02:54)
[2024-12-19] MEDS: METOCLOPRAMIDE HCL INJ 10 MG/2 ML VIAL IV PUSH (02:54)
[2024-12-19] MEDS: SODIUM CHLORIDE 0.9% IV 200 ML (02:54)
--- NOTE | 2024-12-19 03:58 | ED_ITS ---
HPI - Abdominal Pain General Chief Complaint: Abdominal Pain Stated Complaint: colitis Time Seen by Provider: 12/19/24 01:57 History of Present Illness HPI narrative: 49F recently admitted for colitis discharged yesterday presents with nausea/vomiting/cramping starting again today. Feels exactly the same as prior. Related Data Home Medications Medication Instructions Recorded Confirmed Last Taken Type atorvastatin 20 mg tablet 20 mg PO HS 10/15/20 12/15/24 12/13/24 History loratadine 10 mg tablet (Claritin) 10 mg PO DAILY 10/15/20 12/15/24 05/24/23 History montelukast 10 mg tablet 10 mg PO HS 10/15/20 12/15/24 12/13/24 History insulin lispro-aabc 100 unit/mL 1 sliding scale dose subcut AC 05/25/23 12/15/24 12/13/24 History subcutaneous pen (Lyumjev KwikPen U-100 Insulin) tirzepatide 5 mg/0.5 mL 10 mg subcut WEEKLY 05/25/23 12/15/24 12/10/24 History subcutaneous pen injector (Jewellro) venlafaxine 150 mg 150 mg PO QAM 05/25/23 12/15/24 12/13/24 History capsule,extended release 24 hr albuterol sulfate 2.5 mg/3 mL 2.5 mg inhalation DAILY PRN 08/10/23 12/15/24 Unknown History (0.083 %) solution for nebulization Shortness Of Breath cetirizine 10 mg tablet (All Day 10 mg PO DAILY 08/10/23 12/15/24 12/13/24 History Allergy (cetirizine)) ergocalciferol (vitamin D2) 50,000 unit PO .COMPLEX 08/10/23 12/15/24 12/11/24 History prednisone 20 mg tablet 40 mg PO DAILY@0800 08/10/23 12/15/24 12/13/24 History cyclobenzaprine 10 mg tablet 10 mg PO HS 07/31/24 12/15/24 12/13/24 History diclofenac sodium 75 mg 75 mg PO BID 07/31/24 12/15/24 12/13/24 History tablet,delayed release folic acid 1 mg tablet 1 mg PO DAILY 07/31/24 12/15/24 12/13/24 History hydroxychloroquine 200 mg tablet 400 mg PO HS 07/31/24 12/15/24 12/13/24 History insulin glargine 100 unit/mL (3 45 unit subcut BID 07/31/24 12/15/24 12/13/24 History mL) subcutaneous pen (Lantus Solostar U-100 Insulin) lisinopril 20 mg tablet 20 mg PO DAILY 07/31/24 12/15/24 12/13/24 History methotrexate sodium 2.5 mg tablet 12.5 mg PO WEEKLY 07/31/24 12/15/24 07/28/24 History pantoprazole 40 mg tablet,delayed 40 mg PO DAILY 07/31/24 12/15/24 12/13/24 History release acetaminophen 500 mg tablet 1,000 mg PO BID 09/23/24 12/15/24 12/13/24 History famotidine 20 mg tablet (Acid 20 mg PO HS 09/23/24 12/15/24 12/13/24 History Controller) magnesium 200 mg tablet 400 mg PO DAILY 09/23/24 12/15/24 12/13/24 History magnesium salicylate 162.5 1 tablet PO DAILY 09/23/24 12/15/24 Unknown History mg-caffeine 50 mg tablet (Diurex) potassium 99 mg tablet 99 mg PO HS 09/23/24 12/15/24 12/13/24 History albuterol sulfate 90 mcg/actuation 2 puff inhalation Q8H PRN 10/03/24 12/15/24 Unknown History aerosol inhaler shortness of breath or wheezing Allergies Allergy/AdvReac Type Severity Reaction Status Date / Time amoxicillin AdvReac Unknown Nausea and Verified 12/19/24 00:48 Vomiting glipizide AdvReac Unknown NAUSEA AND Verified 12/19/24 00:48 VOMITING hydrocodone AdvReac Unknown Nausea and Verified 12/19/24 00:48 Vomiting metformin AdvReac Unknown Nausea and Verified 12/19/24 00:48 Vomiting Review of Systems 2 Review of Systems: All systems reviewed & are unremarkable except as noted in HPI and below PMFSH Past Medical History Medical History (Updated 12/19/24 @ 03:56 by Rebekah Kc MD) Immunocompromised Vasculitis Depression JEREMY on CPAP Hypertension Hypercholesterolemia Diabetes Surgical History Surgical History H/O arthroscopy H/O myomectomy Family History Family History Mother Diabetes mellitus Myocardial infarction Uterine cancer Father Cancer of blood vessel Sibling Diabetes mellitus Social History Social History Smoking status: Never smoker Alcohol intake: never Drinks per week: 1 Substance use: never Substance use type: does not use Do You Feel Safe in your Home?: Yes Lack of Transportation: No Lack of Food: Never True Current Housing: I Have Housing Concerned About Future Housing: No Difficulty Paying Gas/Electric Bills: No Difficulty Paying for Meds: No Currently Unemployed: No Education: Trade/Vocational Certificate Difficulty w/ Childcare or Family Care: No Spiritual care concerns: No Exam 2 Narrative: EXAMINATION OF ORGAN SYSTEMS/BODY AREAS: Constitutional: Vital signs per nursing GENERAL: Appears slightly uncomfortable HEAD: Normal with no signs of head trauma. EYES: EOMI, conjunctiva normal ENT: Hearing grossly intact LUNGS: Nonlabored breathing. HEART: Tachycardic ABD: [Soft], [nontender to palpation] EXT: Normal range of motion SKIN: [No rashes or lesions.] NEURO: [Alert and oriented x 3. No gross focal sensory or strength deficits.] PSYCH: Normal affect Course Vital Signs Vital signs: Vital Signs Temperature 97.6 F 12/19/24 00:45 Pulse Rate 119 H 12/19/24 00:45 Respiratory Rate 21 H 12/19/24 00:45 Blood Pressure 193/100 H 12/19/24 00:45 Pulse Oximetry 94 12/19/24 00:45 Oxygen Delivery Room Air 12/19/24 00:45 Temperature 97.6 F 12/19/24 00:45 Pulse Rate 93 12/19/24 03:46 Respiratory Rate 20 12/19/24 03:46 Blood Pressure 187/108 H 12/19/24 03:46 Pulse Oximetry 97 12/19/24 03:46 Oxygen Delivery Room Air 12/19/24 00:45 MDM - Abdominal Pain MDM Narrative Medical decision making narrative: 1) Differential diagnosis: SBO, gastro 2) Comorbidities: colitis, DM 3) External notes reviewed: admission records 4) History sources independently obtained from: family at bedside 5) Discussion of management with: 6) Independent interpretation of: 7) Diagnostic tests or therapies considered but not ordered: CT A/P; pt had one a few days ago and has no new symptoms since 8) Social determinants of health: [] 9) Shared decision makinF p/w n/v, feels the same as when she was here. SDM no new imaging, will get labs and give meds and re-eval. Labs at her baseline from 2d ago.l on reeval, pt feeling better, no new abd pain or tenderness, no further emesis/nausea; agreeable to outpt mgmt w/ return precautions. Lab Data 12/19/24 02:23 12/19/24 02:23 Labs: Lab Results 12/19/24 Range/Units 02:23 WBC 17.3 H (4.5-10.0) K/mm3 RBC 4.08 L (4.2-5.4) M/mm3 Hgb 11.7 L (12.0-15.0) g/dL Hct 37.8 (37.0-47.0) % MCV 92.6 (80-100) fl MCH 28.7 (26-34) pg MCHC 31.0 L (32-36) g/dl RDW 17.0 H (11.5-14.5) % Plt Count 365 (150-375) k/mm3 MPV 10.3 (7.4-10.4) fl Immature Gran % (Auto) 1.5 H (0-0.5) % Neut % (Auto) 82.2 H (45.5-73.1) % Lymph % (Auto) 8.8 L (18.3-44.2) % Johnston % (Auto) 7.1 (2.6-8.5) % Eos % (Auto) 0.1 (0-4.4) % Baso % (Auto) 0.3 (0.2-1.2) % Lymph # (Auto) 1.52 (0.9-3.2) K/mm3 Johnston # (Auto) 1.2 H (0.1-0.6) K/mm3 Eos # (Auto) 0.0 (0-0.3) K/mm3 Baso # (Auto) 0.1 (0.0-0.1) K/mm3 Abs Immat Gran (auto) 0.26 H (0.00-0.031) K/mm3 Absolute Neuts (auto) 14.2 H (1.3-6.7) K/mm3 Absolute Nucleated RBC 0.000 (0.0-0.012) K/mm3 Nucleated RBC % 0.0 (0.0-0.2) % Sodium 136 L (137-145) mmol/L Potassium 3.8 (3.4-5.0) mmol/L Chloride 100 (98-107) mmol/L Carbon Dioxide 27 (22-30) mmol/L Anion Gap 9 (4-12) mmol/L BUN 15 D (7-17) mg/dL Creatinine 0.64 L (0.7-1.0) mg/dL Estim Creat Clear Calc 136 ml/min Estimated GFR > 60 (59 - ) Glucose 282 H (65-110) mg/dL Calcium 9.0 (8.4-10.2) mg/dL Total Bilirubin 0.3 (0.2-1.3) mg/dL AST 31 (14-36) U/L ALT 57 H (6-35) U/L Alkaline Phosphatase 65 (38-126) U/L Total Protein 7.0 (6.3-8.2) g/dL Albumin 4.0 (3.5-5.1) g/dL Lipase 265 (23-300) U/L Discharge Plan Discharge Clinical Impression: Nausea & vomiting Patient Disposition: Home Condition: Stable Instructions: Acute Nausea and Vomiting (ED) Additional Instructions: Please follow up with your doctor; you can always return for any further issues. Try the medications as prescribed Patient Language: Tunisian Prescriptions: New famotidine 20 mg tablet 20 mg PO DAILY Qty: 30 0RF dicyclomine 20 mg tablet 20 mg PO TID PRN (Reason: abdominal pain) Qty: 30 0RF ondansetron 4 mg tablet,disintegrating 4 mg PO Q8H PRN (Reason: nausea and vomiting) Qty: 14 0RF No Action atorvastatin 20 mg tablet 20 mg PO HS Rx Instructions: Has been off since June due PCP order. montelukast 10 mg tablet 10 mg PO HS loratadine [Claritin] 10 mg Tablet 10 mg PO DAILY venlafaxine 150 mg capsule,extended release 24hr 150 mg PO WAQAR Flood U-100 Insulin 100 unit/mL insulin pen 1 sliding scale dose SUBCUT AC Rx Instructions: For blood sugar of 150 or less administer 18 units for blood sugar per 25 points greater than 150 administer 1 unit per 25 over Mounjaro 5 mg/0.5 mL pen injector 10 mg SUBCUT WEEKLY Patient Comments: on Saturdays tramadol 50 mg Tablet 50 mg PO Q4H PRN (Reason: Severe pain) Qty: 15 0RF lidocaine 5 % adhesive patch,medicated 1 patch topical DAILY Qty: 30 0RF Rx Instructions: leave on most painful area for up to 12 hrs gabapentin 300 mg capsule 400 mg PO TID Qty: 30 0RF metoprolol tartrate 25 mg tablet 12.5 mg PO BID 30 Days Qty: 30 0RF ciprofloxacin HCl 500 mg tablet 500 mg PO Q12H Qty: 14 0RF metronidazole 500 mg tablet 500 mg PO Q8H 7 Days Qty: 21 0RF albuterol sulfate 2.5 mg /3 mL (0.083 %) solution for nebulization 2.5 mg inhalation DAILY PRN (Reason: Shortness Of Breath) cetirizine [All Day Allergy (cetirizine)] 10 mg Tablet 10 mg PO DAILY ergocalciferol (vitamin D2) 50,000 unit PO .COMPLEX Patient Comments: Patient takes on Wednesdays and Sundays Rx Instructions: 50,000 units orally twice a week; prednisone 20 mg tablet 40 mg PO DAILY@0800 cyclobenzaprine 10 mg tablet 10 mg PO HS Patient Comments: patient takes in the evening lisinopril 20 mg tablet 20 mg PO DAILY methotrexate sodium 2.5 mg tablet 12.5 mg PO WEEKLY Rx Instructions: on diclofenac sodium 75 mg tablet,delayed release (DR/EC) 75 mg PO BID folic acid 1 mg tablet 1 mg PO DAILY hydroxychloroquine 200 mg tablet 400 mg PO HS insulin glargine [Lantus Solostar U-100 Insulin] 100 unit/mL (3 mL) insulin pen 45 unit SUBCUT BID Patient Comments: in the morning and evening pantoprazole 40 mg tablet,delayed release (DR/EC) 40 mg PO DAILY Diurex 162.5-50 mg tablet 1 tablet PO DAILY magnesium 200 mg tablet 400 mg PO DAILY potassium 99 mg tablet 99 mg PO HS famotidine [Acid Controller] 20 mg tablet 20 mg PO HS acetaminophen 500 mg Tablet 1,000 mg PO BID albuterol sulfate 90 mcg/actuation HFA aerosol inhaler 2 puff INHALATION Q8H PRN (Reason: shortness of breath or wheezing) Follow-up/Referrals: Lynn Rodriguez [Other]
== END 2024-12-19 04:07 | disposition home or self-care (01) ==
PROVIDERS: Emergency Provider Emergency Medicine
DX: R11.2 Nausea with vomiting, unspecified (principal); I10 Essential (primary) hypertension; E78.00 Pure hypercholesterolemia, unspecified; E11.9 Type 2 diabetes mellitus without complications; G47.33 Obstructive sleep apnea (adult) (pediatric); F32.A Depression, unspecified; Z79.899 Other long term (current) drug therapy; Z79.85 Long-term (current) use of injectable non-insulin antidiabetic drugs; Z79.4 Long term (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
CPT/HCPCS: 36415; 80053; 83690; 85025; 96361; 96374; 96375; 99284; J1200; J2765

== ENCOUNTER 2025-02-17 03:04 | Emergency (ER) | payer OTHER, SELFPAY ==
[2025-02-17] VITALS (9 sets, daily range): BP systolic 137–157; BP diastolic 82–87; PULSE 99–111; RESP 17–20; TEMP 36.3–36.6; O2SAT 93–97
--- OUTSIDE RECORDS SUMMARY | 2025-02-17 03:08 | XMS_ITS | Clinical Summary ---
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 Art[employer] Name Role Phone Ann Serrano MD Unavailable [phone] Lynn Rodriguez MD Primary Care Provider Allergies [...] 09/01/2018 bruising Medications ibuprofen (ADVIL,MOTRIN) 600 mg tabletIndications :Acute sinusitis, recurrence not specified, unspecified location Take 1 tablet (600 mg total) by mouth every 6 (six) hours as needed for pain, fever or headaches (pain) 60 tablet 023 Active cetirizine (ZyrTEC) 10 mg tabletIndications :Acute sinusitis, recurrence not specified, unspecified location Take 1 tablet (10 mg total) by mouth daily 30 tablet 023 Active hydroxychloroquin e (PLAQUENIL) 200 mg tablet Take 1 tablet (200 mg total) by mouth 2 (two) times a day 023 Active loratadine (CLARITIN) 10 mg tablet Take 1 tablet (10 mg total) by mouth daily Active diclofenac DR (VOLTAREN) 75 mg EC tablet Take 1 tablet (75 mg total) by mouth 2 (two) times a day Active predniSONE (DELTASONE) 10 mg tablet Active venlafaxine XR (EFFEXOR-XR) 150 mg 24 hr capsule Take 1 capsule (150 mg total) by mouth daily 30 capsule Active Protonix 40 mg EC tablet Active pamabrom (DIUREX MAX ORAL) Active gabapentin (NEURONTIN) 300 mg capsule Active folic acid (FOLVITE) 1 mg tablet Active lancets 33 gauge miscIndications:U ncontrolled type 2 diabetes mellitus with hyperglycemia (HCC) Use to check blood sugar as directed up to 4 times daily. 400 each 3 Active blood-glucose sensor (Nanoogo G7 Sensor) deviceIndications :Uncontrolled type 2 diabetes mellitus with hyperglycemia (HCC),detention (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) Use for continuous glucose monitor. Change sensor every 10 days. 9 each 3 Active blood glucose diagnostic stripIndications: Uncontrolled type 2 diabetes mellitus with hyperglycemia [...] cyclobenzaprine (FLEXERIL) 10 mg tablet 3 Active budesonide-formot Rochelle (SYMBICORT) 160-4.5 mcg/actuation inhaler Inhale 2 puffs 2 (two) times a day Rinse mouth with water after use. Do not swallow. 1 each Active inhalational spacing device spacer 1 each daily 1 each Active traMADoL (ULTRAM) 50 mg tablet Take 1 tablet (50 mg total) by mouth every 8 (eight) hours as needed for pain 30 tablet Active Vitamin D2 1,250 mcg (50,000 unit) capsule TAKE 1 CAPSULE BY MOUTH TWICE WEEKLY 26 capsule 3 Active lidocaine (LIDODERM) 5 % Apply 1 patch topically daily; leave on most painful area for up to 12 hrs Active famotidine (PEPCID) 20 mg tablet Take 1 tablet (20 mg total) by mouth daily Active dicyclomine (BENTYL) 20 mg tablet Take 1 tablet (20 mg total) by mouth 3 (three) times a day as needed Active LYUMJEV 100 unit/mL pen for injectionIndicati ons:Uncontrolled type 2 diabetes mellitus with hyperglycemia (HCC) INJECT SUBCUTANEOUSLY 10 UNITS BEFORE MEALS PLUS SLIDING SCALE 1 UNIT FOR EVERY 25 POINTS >150; MAXIMUM DAILY DOSE: 55 UNITS 60 mL Active albuterol 2.5 mg /3 mL (0.083 %) nebulizer solution USE 1 VIAL VIA NEBULIZER EVERY 6 HOURS NEEDED FOR WHEEZING (ESL INSTRUCTOR RECOMMENDS NOT EXCEEDING 4 VIALS/DAY) 600 mL Active albuterol HFA (PROVENTIL HFA,VENTOLIN HFA,PROAIR HFA) 90 mcg/actuation inhaler USE 2 INHALATIONS BY MOUTH EVERY 4 HOURS NEEDED FOR WHEEZING OR SHORTNESS OF BREATH 51 g Active Baqsimi 3 mg/actuation spray,non-aerosol Indications:Uncon trolled type 2 diabetes mellitus with hyperglycemia (HCC) INSERT DEVICE TIP INTO 1 NOSTRIL PUSH DEVICE PLUNGER UNTIL GREEN LINE DISAPPEARS. NEEDED IN CASE OF EMERGENCY LOW BLOOD SUGARS. 1 each Active tirzepatide (Mounjaro) 15 mg/0.5 mL pen injector injectionIndicati ons:Uncontrolled type 2 diabetes mellitus with hyperglycemia (HCC) Inject 0.5 mL (15 mg total) under the skin every 7 days 6 mL Active lisinopriL (PRINIVIL,ZESTRIL ) 40 mg tablet Take 1 tablet (40 mg total) by mouth daily 90 tablet 3 025 2025 Active atorvastatin (LIPITOR) 40 mg tabletIndications :Uncontrolled type 2 diabetes mellitus with hyperglycemia (HCC),Mixed hyperlipidemia Take 1 tablet (40 mg total) by mouth daily 90 tablet 3 025 2025 Active buprenorphine (Belbuca) 150 mcg film buccal filmIndications:C hronic right-sided low back pain with right-sided sciatica,Sacroili itis,Radiculopath y, lumbosacral region Apply 1 each (150 mcg total) to cheek 2 (two) times a day 60 each Active metoprolol tartrate (LOPRESSOR) 25 mg immediate release tablet Take 0.5 tablets (12.5 mg total) by mouth 2 (two) times a day 90 tablet 1 025 2024 Active insulin glargine (LANTUS) 100 unit/mL (3 mL) pen for injectionIndicati ons:Uncontrolled type 2 diabetes mellitus with hyperglycemia (HCC) INJECT SUBCUTANEOUSLY 40 UNITS TWICE DAILY 75 mL 3 Active sulfamethoxazole- trimethoprim (BACTRIM DS) 800-160 mg per tablet TAKE 1 TABLET BY MOUTH 3 TIMES WEEKLY 12 tablet 1 Active pen needle, diabetic (Izabella 2nd Gen Pen Needle) 32 gauge x 5/32 needle USE TO INJECT INSULIN UP TO 5 TIMES DAILY DIRECTED 450 each 3 Active predniSONE (DELTASONE) 10 mg tablet Take 4 tablets (40 mg) by mouth daily for 30 days, THEN 3.5 tablets (35 mg) daily for 30 days, THEN 3 tablets (30 mg) daily. 315 tablet 025 2024 Active zolpidem (AMBIEN) 10 mg tabletIndications :Sleep-Onset Insomnia Take 1 tablet (10 mg total) by mouth nightly as needed for sleep (for sleep study) 1 tablet 025 2024 Active insulin glargine (LANTUS) 100 unit/mL (3 mL) pen for injectionIndicati ons:Uncontrolled type 2 diabetes mellitus with hyperglycemia (HCC) 45 units twice daily 024 2024 Discontinued pen needle, diabetic (Pen Needle) 32 gauge x 5/32 needleIndications :Uncontrolled type 2 diabetes mellitus with hyperglycemia (HCC) Use to inject insulin up as directed to 5 times daily. 400 each 3 024 2024 Discontinued sulfamethoxazole- trimethoprim (BACTRIM DS) 800-160 mg per tablet TAKE 1 TABLET BY MOUTH 3 TIMES WEEKLY 12 tablet 1 025 2024 Discontinued Active Problems Problem Noted Date Diagnosed Date Spinal stenosis of lumbar re gion with neurogenic claudication 02/06/2025 Assessment & Plan (02/15/2025 10:37 AM CDT): Recent LESI by pain management Awaiting results Follow up pain management Chronic right-sided low back pain with right-kevin ed sciatica 01/10/2025 Sacroiliitis 01/10/2025 Assessment & Plan (02/15/2025 10:36 AM CDT): Recent LESI by pain management Radiculopathy, lumbosacral region 01/10/2025 Assessment & Plan (02/15/2025 10:37 AM CDT): Recent LESI by pain management Awaiting results Follow up pain management Dysphagia 12/30/2024 Lymphedema 12/29/2024 Assessment & Plan (02/15/2025 10:36 AM CDT): Improving She has started lymphedema therapy Autoimmune disease 12/21/2024 Assessment & Plan (02/15/2025 10:38 AM CDT): Unknown autoimmune disorder She has been advised to stop hydroxychloroquine, but she felt dizzy so she went back on it Strongly advised to taper off prednisone Follow up rheumatology Assessment & Plan (12/21/2024 7:52 PM CDT): Lung disease likely to be attributed at least partially to an autoimmune disorder Continue present plan and medication Follow up rheumatology Chronic hypoxic respiratory failure 12/16/2024 Assessment & Plan (02/15/2025 10:36 AM CDT): Likely multifactorial--morbid obesity, asthma, ?autoimmune disease Symptoms improved Continue present plan and medications Supplemental Os on exertion Follow up pulmonary Assessment & Plan (12/21/2024 7:51 PM CDT): Likely multifactorial--morbid obesity, asthma, autoimmune disease Symptoms improved Continue present plan and medications Supplemental Os on exertion Follow up pulmonary Impaired mobility 07/29/2024 detention (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 07/13/2024 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 Assessment & Plan (01/17/2022 10:21 AM CDT): Stable on current medication regimen. Assessment & Plan (07/17/2021 2:07 PM [employer]): Better controlled on venlafaxine. Assessment & Plan (04/22/2021 8:25 AM CDT): Restart venlafaxine and warned of side effects and call back if any develop or if no improvement. 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 Unfortunately lab work and skin biopsy inconclusive. Discussed possible rheumatology 2nd opinion here at [facility] and patient will call back if desired. Assessment & Plan (06/15/2023 10:48 AM [employer]): Certainly making a case for underlying vasculitis [...] condition. Assessment & Plan (06/20/2020 9:35 AM [employer]): Unclear etiology but I am thinking of [...] comorbidity and body mass index (BMI) of 50.0 to 59.9 in adult 07/08/2019 Assessment & Plan (02/15/2025 10:35 AM CDT): Body mass index is 53.59 kg/m . BMI Follow-up includes: nutrition counseling, exercise counseling, and education provided. Assessment & Plan (12/21/2024 7:50 PM CDT): Body mass index is 51.65 kg/m . BMI Follow-up includes: nutrition counseling, exercise counseling, and education provided. Assessment & Plan (10/12/2024 11:34 AM CDT): - Increase Mounjaro to 12.5 mg once a week - Encourage to increase physical activity as tolerated Assessment & Plan (08/26/2024 6:10 PM [employer]): Body mass index is 49.1 kg/m . BMI Follow-up includes: nutrition counseling, exercise counseling, and education provided. Assessment & Plan (07/13/2024 12:20 PM [employer]): - Increase Mounjaro to 10 mg weekly [...] tolerated. Assessment & Plan (06/08/2023 5:23 PM [employer]): Patient is encouraged to lose weight with a combination of caloric reduction and increased exercise. Various strategies discussed. The long-term risks associated with continued morbid obesity discussed. Assessment & Plan (09/04/2022 2:34 PM [employer]): Patient is encouraged to lose weight with a combination of caloric reduction and increased exercise. Various strategies discussed. The long-term risks associated with continued morbid obesity discussed. Assessment & Plan (08/02/2022 12:16 PM [employer]): Patient is encouraged to lose weight with [...] discussed. Assessment & Plan (07/13/2020 8:34 AM [employer]): Patient is encouraged to lose weight with a combination of caloric reduction and increased exercise. Various strategies discussed. The long-term risks associated with continued morbid obesity discussed. Assessment & Plan (06/20/2020 9:35 AM [employer]): Patient is encouraged to lose weight with a combination of caloric reduction and increased exercise. Various strategies discussed. The long-term risks associated with continued morbid obesity discussed. Assessment & Plan (07/08/2019 8:44 AM [employer]): Patient is encouraged to lose weight with a combination of caloric reduction and increased exercise. Various strategies discussed. The long-term risks associated with continued morbid obesity discussed. Irregular menses 06/03/2019 Allergic rhinitis 07/05/2018 Assessment & Plan (02/23/2023 1:30 PM CDT): Nasal saline spray (Simply saline, [employer], [place], [place]) 2 second sprays or 2 squeezes into [...] daily Assessment & Plan (07/17/2021 2:07 PM [employer]): Claritin montelukast. Assessment & Plan (04/22/2021 8:25 AM CDT): Currently using Claritin and montelukast. She has not been trying Flonase as her nose is being to congested. Recommended sinus rinses her using a hot warm shower. Could also try Afrin for few days. Assessment & Plan (07/08/2019 8:43 AM [employer]): Add montelukast to her Claritin. She struggles with nasal sprays due to chronic congestion. Assessment & Plan (07/05/2018 9:24 AM [employer]): Try Afrin for 3 days along with initiating fluticasone. Stop Afrin in3 days and continue fluticasone indefinitely. continue Zyrtec. Mixed hyperlipidemia 07/02/2017 Assessment & Plan (02/15/2025 10:35 AM CDT): Lab Results Component Value Date LDLCALC 127 01/09/2025 LDL goal <70 No side effects of prescribed medication Continue statin Assessment & Plan (01/09/2025 11:27 AM CDT): - Last LDL 103, TG 308, TC 233 (12/2023), at goal - Continue Lipitor 20 mg daily - Need to optimize glycemic control - Repeat lipid panel today - Consider increasing and/or adding another medication in order to further reduce LDL to goal < 70 mg/dL Assessment & Plan (12/21/2024 7:50 PM CDT): Lab Results Component Value Date LDLCALC 68 12/29/2023 LDL goal <70 No side effects of prescribed medication Continue statin Assessment & Plan (10/12/2024 11:33 AM CDT): - Last LDL 103, TG 308, TC 233 (12/2023), above goal - Continue Lipitor 20 mg daily - Need to repeat lipid panel - Consider increasing and/or adding another medication in order to further reduce LDL to goal < 70 mg/dL Assessment & Plan (07/13/2024 12:21 PM [employer]): - Last LDL 103, TG 308, TC [...] triglycerides. Assessment & Plan (09/12/2023 8:12 PM [employer]): Continue statin and optimize glycemic control Assessment & Plan (02/16/2023 8:14 PM CDT): Continue statin and optimize glycemic control Assessment & Plan (01/21/2023 9:50 AM CDT): Continue her atorvastatin and work on diet exercise and check lipids and LFTs before next visit. Assessment & Plan (08/02/2022 12:15 PM [employer]): Well controlled on current therapy and will check a lipid panel and LFTs in 6 months. Assessment & Plan (01/17/2022 10:21 AM CDT): Well controlled on current therapy and will check a lipid panel and LFTs in 6 months. Assessment & Plan (07/17/2021 2:06 PM [employer]): Well controlled on current therapy and will check a lipid panel and LFTs in 6 months. Assessment & Plan (06/24/2021 3:28 PM [employer]): Continue statin and optimize glycemic control Assessment & Plan (12/19/2020 7:53 AM CDT): Continue statin and optimize glycemic control Assessment & Plan (07/13/2020 8:34 AM [employer]): Well controlled on current therapy and will check a lipid panel and LFTs in 6 months. Assessment & Plan (06/08/2020 8:31 AM [employer]): LDL within goal. Continue statin and optimize glycemic control Assessment & Plan (07/08/2019 8:42 AM [employer]): Well controlled on current therapy and will check a lipid panel and LFTs in 12 months. Assessment & Plan (09/01/2018 2:22 PM [employer]): Continue statin, optimize glycemic control Assessment & Plan (07/05/2018 9:23 AM [employer]): Well controlled on current therapy and will check a lipid panel and LFTs in 6 months. Assessment & Plan (08/26/2017 4:27 PM [employer]): Start atorvastatin and check lipids and LFTs in 3-4 months. Call back for results. Vitamin D deficiency 07/02/2017 Assessment & Plan (07/13/2024 12:22 PM [employer]): - Last Vitamin D 42 (12/2023), replete [...] week Assessment & Plan (09/12/2023 8:12 PM [employer]): Continue long-term supplement Assessment & Plan (02/16/2023 8:14 PM CDT): Continue long-term supplement Assessment & Plan (08/02/2022 12:15 PM [employer]): Continue current supplementation and check level in 1 year. Assessment & Plan (07/17/2021 2:06 PM [employer]): Continue current supplementation and check level in 1 year. Assessment & Plan (06/24/2021 3:29 PM [employer]): Continue long-term supplement Assessment & Plan (12/19/2020 7:53 AM CDT): Continue long-term supplement Assessment & Plan (07/13/2020 8:33 AM [employer]): Continue current supplementation and check level in 1 year. Assessment & Plan (06/08/2020 8:31 AM [employer]): Vitamin-D level within goal, continue chronic supplement Assessment & Plan (07/08/2019 8:42 AM [employer]): Continue current supplementation and check level in 1 year. Assessment & Plan (06/03/2019 8:24 AM CDT): Recently ran out of supplement, so we will restart and check her level today. Also check B12 Assessment & Plan (09/01/2018 2:22 PM [employer]): Continue supplement Assessment & Plan (07/05/2018 9:23 AM [employer]): Continue current supplementation and check level in 1 year. Assessment & Plan (08/26/2017 4:26 PM [employer]): Continue current supplementation and check level in 1 year. Uncontrolled type 2 diabetes mellitus with hyper glycemia 03/24/2016 Overview (07/05/2018): Cannot tolerate metformin, glipizide due to nausea/vomiting; Invokana works better than jardiance. Does not tolerate acarbose Assessment & Plan (02/15/2025 10:34 AM CDT): Last A1C Lab Results Component Value Date HGBA1C 8.9 (A) 01/09/2025 Not at goal Increase morning and evening Lantus Increasing Mounjaro to 15 mg Low carb diet Continue current medication Assessment & Plan (01/09/2025 11:30 AM CDT): - Diabetes is complicated by hypertension, hyperlipidemia, obesity and steroid use. Control is above goal but improving! Lab Results Component Value Date HGBA1C 8.9 (A) 01/09/2025 Per [place] [employer], goal A1c is less 7% without significant hypoglycemia. - Management Goal: A1c <7.5% - Increase Mounjaro to 15 mg once weekly - Continue Lantus 45 units twice daily - Lyumjev with meals. Continue sliding scale 1:25 > 150 mg/dL. - Consider SGLT2 inhibitor once A1c <8.5%. - Consider insulin pumps - she will think about this. Given handouts today - she will schedule with CDEs to discuss in further detail. - Continue management with Dexcom G7 CGM. - Advised bolusing <5 minutes before each meal. - Advised annual dilated eye exam - up to date. - Advised checking blood glucose before driving - Discussed hypoglycemia risk, and treatment such as the rule of 15s and the use of glucagon - Annual labs are DUE. Ordered today. - Update me on consistent glycemia excursions or if there is any hypoglycemia. - Advised and ensured that I am available via phone or MyChart if they have any concerns for hypo/hyperglycemia, medication refills, etc. Assessment & Plan (10/12/2024 11:32 AM CDT): - Diabetes is complicated by hyperlipidemia, hypertension, obesity and chronic steroid use. Control is improving with most recent A1c 7.8%. Lab Results Component Value Date HGBA1C 11.7 07/13/2024 Per [place] [employer], goal A1c is less 7% [...] that I am available via phone or Ringhart if they have any concerns for hypo/hyperglycemia, medication refills, etc. Assessment & Plan (08/26/2024 6:10 PM [employer]): Assessment & Plan (07/13/2024 12:20 PM [employer]): - Diabetes is complicated by hyperlipidemia, hypertension, morbid obesity and chronic steroid use. Uncontrolled. Lab Results Component Value Date HGBA1C 11.7 07/13/2024 Per [place] [employer], goal A1c is less 7% [...] in prescriptions for both Dexcom G7 and [place] [employer] Silva 3 CGM for mcmillan checking. Also discussed use of Dexcom Stelo. [...] visit 3 months to see the MANAGER CONTRACT/PA, 6 months to see me. Assessment & [...] Component Value Date HGBA1C 12.5 11/17/2023 Per [place] [employer], goal A1c is less 7% without significant hypoglycemia. - Continue current medication regimen at this time. Encouraged to start giving 10 units of Lyumjev for snacks. - She has still not received Moungloria, states she thinks she may get a [...] Component Value Date HGBA1C 12.5 11/17/2023 Per [place] [employer], goal A1c is less 7% without significant hypoglycemia. - Management Goal: re-start and adherence to medication regimen - Continue current medication regimen at this time. - Patient called local pharmacy to confirm that they do have prescriptions for her Semglee. She is going to tack picker today after this visit. - Insurance [...] that I am available via phone or Ringhart if they have any concerns for hypo/hyperglycemia, medication refills, etc. Assessment & Plan (09/12/2023 8:13 PM [employer]): Very high glucoses; multifactorial including steroid therapy, [...] daily. Assessment & Plan (06/24/2021 3:29 PM [employer]): Much improved but needs a little more basal insulin. Assessment & Plan (12/19/2020 7:53 AM CDT): Multiple medications, but now requires insulin. We can gradually adjust her Lantus based on her clinical response. Assessment & Plan (06/08/2020 8:32 AM [employer]): Glucoses somewhat better now that she is [...] motivator. Assessment & Plan (07/08/2019 8:43 AM [employer]): Continue increased dose of Ozempic and also continue Invokana. Importance of dietary changes increase exercise weight loss discussed. Follow-up with her network operations manager as they direct. Assessment & Plan (06/03/2019 8:25 AM CDT): Somewhat suboptimal, would benefit from increasing Ozempic and continuing efforts with diet and lifestyle. Needs follow-up labs Assessment & Plan (09/01/2018 2:22 PM [employer]): Glucoses a little high, but she has bruising with Victoza so she may benefit by changing to weekly Ozempic, which is a little stronger, as well. Jardiance is been ineffective, so we may need to provide preauthorization for Invokana Assessment & Plan (07/05/2018 9:23 AM [employer]): A1c above goal. We stressed importance of increased exercise, reduce calories, weight loss. Could consider switching Victoza to ozempic. Otherwise does not tolerate metformin or sulfonylureas. May need insulin soon. She is directed to follow up with her network operations manager more quickly than her next scheduled appointment in November. Assessment & Plan (08/26/2017 4:26 PM [employer]): Continue current medication regimen and follow up with her network operations manager as they direct. Low carb diet weight loss recommended. Check blood sugars once daily. Start atorvastatin and check lipids and LFTs in 3-4 months. Anxiety state 12/17/2013 Overview (11/07/2016): ANXIETY STATE NOS Benign hypertension 12/17/2013 Overview (11/07/2016): BENIGN HYPERTENSION Assessment & Plan (02/15/2025 10:35 AM CDT): Assessment & Plan (01/09/2025 11:28 AM CDT): - Well above goal today - She is on lisinopril 20 mg daily. Plan to increase this to 40 mg daily. - She has a BP cuff at home. She is going to check daily for the next week and send me BP readings. Will adjust/add antihypertensives as needed to achieve BP goal <130/80 mmHg Assessment & Plan (07/13/2024 12:21 PM [employer]): - Above goal today - Encouraged her [...] monitor. Assessment & Plan (06/08/2023 5:25 PM [employer]): Stop amlodipine with current issues of swelling. Pressure currently well controlled and should monitor at home Assessment & Plan (01/21/2023 9:49 AM CDT): Blood pressure well controlled on lisinopril Assessment & Plan (09/04/2022 2:34 PM [employer]): Blood pressure well controlled on her lisinopril. Assessment & Plan (08/02/2022 12:15 PM [employer]): Increase lisinopril to 20 mg daily. Monitor blood pressure at home call back if no improvement. Assessment & Plan (01/17/2022 10:21 AM CDT): Well controlled on the current regimen. Avoidance of salt, proper body weight, and routine exercise recommended. 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 Avoidance of salt, proper body weight, and routine exercise recommended. Assessment & Plan (04/22/2021 8:24 AM CDT): Well controlled on the current regimen. Avoidance of salt, proper body weight, and routine exercise recommended. Assessment & Plan (07/13/2020 8:34 AM [employer]): Well controlled on the current regimen. Avoidance of salt, proper body weight, and routine exercise recommended. Assessment & Plan (07/08/2019 8:42 AM [employer]): Well controlled on the current regimen. Avoidance of salt, proper body weight, and routine exercise recommended. Assessment & Plan (09/01/2018 2:21 PM [employer]): Blood pressure close to target, working on diet and lifestyle Assessment & Plan (07/05/2018 9:23 AM [employer]): Well controlled on the current regimen. Avoidance of salt, proper body weight, and routine exercise recommended. Assessment & Plan (08/26/2017 4:25 PM [employer]): Well controlled on the current regimen. Avoidance of salt, proper body weight, and routine exercise recommended. Anemia 12/29/2012 Moderate persistent asthma without complication 08/19/2012 Overview (06/03/2019): Description: frequent flares Assessment & Plan (02/15/2025 10:35 AM CDT): Symptoms improved Continue present plan and medication--albuterol prn, Symbicort Follow up pulmonary Assessment & Plan (12/21/2024 7:50 PM CDT): Symptoms improved Continue present plan and medication--albuterol prn, montelukast Assessment & Plan (08/26/2024 6:08 PM [employer]): Recent exacerbation due to CAP followed by RSV Symptoms improved Continue present plan and medication--albuterol prn, montelukast Assessment & Plan (07/13/2020 8:36 AM [employer]): Doing well on her Symbicort. Okay to discontinue and use albuterol only as needed. Restart Symbicort if uses her albuterol more than 2 times a week. Obstructive sleep apnea 04/01/2012 Overview (11/12/2017): Description: CPAP Assessment & Plan (01/06/2024 9:08 AM CDT): Patient is compliant with the CPAP machine and gets symptomatic relief. Assessment & Plan (08/02/2022 12:15 PM [employer]): Patient is compliant with the CPAP machine and gets symptomatic relief. Assessment & Plan (07/17/2021 2:06 PM [employer]): Repeat sleep study confirmed obstructive sleep apnea [...] syndrome. Assessment & Plan (07/13/2020 8:34 AM [employer]): Patient is compliant with the CPAP machine and gets symptomatic relief. Assessment & Plan (07/08/2019 8:42 AM [employer]): Patient is compliant with the CPAP machine and gets symptomatic relief. Female infertility associated with anovulation 0 09/21/2011 Resolved Problems Problem Noted Date Diagnosed Date Resolved Date Decreased functional mobility and endurance 12/29/2024 02/15/2025 Uncontrolled diabetes mellit us with hyperglycemia 08/14/2024 12/21/2024 Acute hypoxic respiratory failure 08/13/2024 12/21/2024 Assessment & Plan (08/26/2024 6:09 PM [employer]): Recent hospitalization likely for CAP followed by RSV Symptoms resolved Lymphedema 04/06/2024 08/26/2024 Assessment & Plan (04/06/2024 4:13 PM CDT): Chronic leg cellulitis with noted swelling, edema and discoloration Discussed order for occupational therapy for leg wrapping techniques, exercises, and physical health of legs to prevent infection and further swelling and/or damage to legs Need for vaccination 04/06/202412/21/2 025 Assessment & Plan (04/06/2024 4:14 PM CDT): Received pneumonia vaccine today history of pneumonia currently no complaints last bout in 08/2023 Hyperglycemia 11/18/2023 08/26/2024 Assessment & Plan (11/18/2023 [...] legs Assessment & Plan (06/15/2023 10:47 AM [employer]): Improved after addition of doxycycline to her Bactrim. Call back if symptoms worsen after doxycycline runs out Assessment & Plan (06/08/2023 5:25 PM [employer]): Seems like cellulitis slow to improve either [...] not fully improve with the above therapy. Head trauma 09/04/2022 12/21/2024 Assessment & Plan (09/04/2022 2:35 PM [employer]): No signs of neurological abnormality on examination today. Okay to use Tylenol or ibuprofen as needed for pain. Call back with any change in symptoms. Rest, fluids, avoiding heavy physical activity recommended until symptoms resolved. Plantar fasciitis 01/17/2022 12/21/2024 Assessment & Plan (01/17/2022 10:23 AM CDT): Stretching exercises demonstrated. Ice her foot routinely. Increase ibuprofen to 600 mg 3 times a day with food and warned of GI and cardiovascular side effects. Wear shoes at all times. Podiatry referral if no improvement. Type 2 diabetes mellitus with hyperlipidemia 12/21/2024 Assessment & Plan (01/06/2024 9:09 AM CDT): A1c above goal. Will start Mounjaro soon. Continue other medications as directed by her network operations manager. Diet exercise discussed. Hopefully may be able to wean prednisone in the near future as well. Assessment & Plan (06/15/2023 10:48 AM [employer]): She knows that the steroids will exacerbate her hyperglycemia and should be in contact with her network operations manager for management. Assessment & Plan (06/08/2023 5:26 PM [employer]): Poor control of her diabetes prior to this hospitalization and even worse now on prednisone. Follow-up with her network operations manager for management. Diet exercise weight loss recommended. Assessment & Plan (01/21/2023 9:50 AM CDT): Blood sugars remain above goal. Hopefully the recent addition of mounjaro will help significantly. Discuss up titration of this and her mealtime insulin with her network operations manager. Diet exercise discussed. Check A1c and fasting blood sugar before next visit. Assessment & Plan (08/02/2022 12:16 PM [employer]): A1c poorly controlled. Importance of diet exercise weight loss discussed at length. Continue her Ozempic and insulin and needs to contact her network operations manager soon as possible for guidance on further therapy. Assessment & Plan (01/17/2022 10:22 AM CDT): Patient aware A1c grossly uncontrolled. Must work on diet exercise and weight loss. She has to get back on her insulin and should discuss this today with her network operations manager. Risks posed her health with poor glycemic control discussed. Assessment & Plan (07/13/2020 8:34 AM [employer]): A1c above goal. Importance of diet exercise weight loss discussed. Continue current medication regimen and follow-up with her network operations manager as they direct. Dyslipidemia 06/03/2019 07/13/2020 Healthcare maintenance 08/26/201708/26 Assessment [...] yearly. Colonoscopy due March 2027. Follow-up the training and development assistant for breast exam pelvic exam as they direct. Will see her back in about 6 months sooner if needed. Assessment & Plan (08/02/2022 12:17 PM [employer]): Flu shot each May. Tetanus booster every 10 years. Pneumovax completed. COVID booster recommended. Mammogram yearly. Colonoscopy due March 2027. Follow-up the training and development assistant for breast exam pelvic exam as they direct. Will see her back in 6 months with lab sooner if needed. Assessment & Plan (07/17/2021 2:08 PM [employer]): Flu shot each May. Tetanus booster every 10 years. Pneumovax completed. COVID vaccine completed. Mammogram yearly. Colonoscopy ordered and she should verify coverage before proceeding. Follow-up the training and development assistant for breast exam and pelvic exam as they direct. We will see her back in 1 year for physical and fasting lab sooner if needed. Assessment & Plan (07/13/2020 8:35 AM [employer]): Flu shot each May. Tetanus booster every 10 years. She has had a Pneumovax. Mammogram was abnormal back in August and she has delayed follow-up studies until now and she is urged to get her diagnostic and ultrasound studies done at her earliest convenience and she is aware of the risks posed her health with delay in proceeding. Follow-up the training and development assistant for breast exam and pelvic exam as they direct. We will see her back in 1 year for wellness visit fasting lab sooner if needed. Assessment & Plan (07/08/2019 8:43 AM [employer]): Flu shot each May. Tetanus booster every 10 years. Mammogram ordered. Will see her back in 1 year for physical and fasting lab sooner if needed. Assessment & Plan (07/05/2018 9:24 AM [employer]): Tetanus booster today. Flu shot each May. Mammogram ordered. Patient should follow-up the training and development assistant breast exam and pelvic exam. We will see her back in 1 year for wellness visit fasting lab sooner if needed. Assessment & Plan (08/26/2017 4:27 PM [employer]): Flu shot each May. Tetanus booster every 10 years. See her training and development assistant for breast exam mammogram and Pap smear is a direct. We will see her back in 1 year with fasting lab sooner if needed. Morbid obesity with BMI of 50.0-59.9, adult 08/26/2017 02/15/2025 Assessment & Plan (01/09/2025 11:31 AM CDT): - Increase Stephan as above - She is following with Pain Management, hopefully will decrease prednisone dose soon - Encouraged her to try water aerobics Assessment & Plan (08/26/2017 4:28 PM [employer]): Patient is encouraged to lose weight with [...] Encounters Date Type Department Care Team Description 02/16/2025 9:00 AM CDT Therapy [facility] Rehabilitation Services at [facility] [address] [place] [address] Adelina Little, PT Lymphedema (Primary Dx); Decreased functional mobility and endurance 02/15/2025 9:15 AM CDT Office Visit [facility] Primary Care at [facility] - [address] [place] [address] Lynn Rodriguez MD Uncontrolled type 2 diabetes mellitus with hyperglycemia (HCC) (Primary Dx); Benign hypertension; Mixed hyperlipidemia; Morbid obesity with BMI of 50.0-59.9, adult (HCC); Moderate persistent asthma without complication; Class 3 severe obesity due to excess calories with serious comorbidity and body mass index (BMI) of 50.0 to 59.9 in adult; lobsterman (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); Chronic hypoxic respiratory failure (HCC); Lymphedema; Sacroiliitis; Radiculopathy, lumbosacral region; Spinal stenosis of lumbar region with neurogenic claudication; Autoimmune disease 02/14/2025 12:59 PM CDT - 02/14/2025 11:59 PM CDT Hospital Encounter [facility] [address] [place] [address] Adam Corrales MD Radiculopathy, lumbosacral region [M54.17] (Primary Dx); Spinal stenosis of lumbar region with neurogenic claudication Discharge Disposition: Discharge to home or self care 02/09/2025 9:00 AM CDT Therapy [facility] Rehabilitation Services at [address] [address] Adelina Little, PT Lymphedema (Primary Dx); Decreased functional mobility and endurance 02/09/2025 Orders Only [facility] Sleep Medicine at [address] [address] Iqra Jensen MD JEREMY (obstructive sleep apnea) (Primary Dx) 02/07/2025 12:00 PM CDT Therapy [facility] Services at [address] [address] Ele Vazquez, PT Lymphedema (Primary Dx); Decreased functional mobility and endurance 02/07/2025 Plan of Care Documentation [facility] Rehabilitation Services at [address] [address] 02/06/2025 9:30 AM CDT - 02/06/2025 11:59 PM CDT Hospital Encounter [facility] Pain Management [address] [place] [address] [address] [place] [address] Amada Baldwin NP Spinal stenosis of lumbar region with neurogenic claudication (Primary Dx); Radiculopathy, lumbosacral region; Sacroiliitis; Chronic right-sided low back pain with right-sided sciatica; Uncontrolled type 2 diabetes mellitus with hyperglycemia (HCC); Morbid obesity with BMI of 50.0-59.9, adult (HCC); Benign hypertension Discharge Disposition: Discharge to home or self care 02/02/2025 3:02 PM CDT - 02/02/2025 5:37 PM CDT Emergency [facility] Emergency Department [address] [place] [address] Sumit Yu MD Fall, initial encounter (Primary Dx) Discharge Disposition: Discharge to home or self care 02/02/2025 2:04 PM CDT - 02/02/2025 11:59 PM CDT Hospital Encounter [facility] Imaging and Radiology [address] [place] [address] Adam Corrales MD Chronic low back pain with sciatica, sciatica laterality unspecified, unspecified back pain laterality Discharge Disposition: Discharge to home or self care 02/02/2025 Telephone [facility] Rehabilitation Services at [address] [address] Adelina Little, PT Appointment 01/30/2025 12:00 PM CDT Therapy [facility] Rehabilitation Services at [address] [address] Tiffanie Cantu, PT Lymphedema (Primary Dx); Decreased functional mobility and endurance 01/24/2025 10:15 AM CDT Lab [facility] [address] [place] [phone] 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 9:49 AM CDT - 01/24/2025 11:59 PM CDT Hospital Encounter [facility]) [address] [place] [address] Lucian Trinidad MD PhD Cutaneous vasculitis Discharge Disposition: Discharge to home or self care 01/24/2025 9:00 AM CDT Office Visit [facility] Rheumatology [address] 5th [place] [address] [place] [address] Lucian Trinidad MD PhD 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 Results Follow-Up [facility] Rheumatology [address] 5[address] [place] [address] [place] [address] Lucian Trinidad MD PhD XR Wrist Right 3 or More Views 01/23/2025 12:00 PM CDT Therapy [facility] Rehabilitation Services at [address] [place], [place] [id number] Tiffanie Cantu, PT Lymphedema (Primary Dx); Decreased functional mobility and endurance 01/23/2025 Telephone [facility] Gastroenterology at [address] [place] [address] Graciela Shultz 01/20/2025 2:00 PM CDT Therapy [facility] Rehabilitation Services at [address] [place] [address] Tiffanie Cantu, PT Lymphedema (Primary Dx); Decreased functional mobility and endurance 01/19/2025 7:00 PM CDT - 01/19/2025 11:59 PM CDT Hospital Encounter [facility] Sleep Diagnostic Center [address] [place] [address] Obstructive sleep apnea Discharge Disposition: Discharge to home or self care 01/18/2025 3:00 PM CDT Therapy [facility] Rehabilitation Services at [address] [place] [address] Tiffanie Cantu, PT Lymphedema (Primary Dx); Decreased functional mobility and endurance 01/11/2025 1:00 PM CDT Therapy [facility] Services at [address] [place] [id number] Tiffanie Cantu, PT Lymphedema (Primary Dx); Decreased functional mobility and endurance 01/10/2025 12:21 PM CDT - 01/10/2025 11:59 PM CDT Hospital Encounter [facility] [address] [place] [address] Adam Corrales MD Chronic low back pain with sciatica, sciatica laterality unspecified, unspecified back pain laterality (Primary Dx); Acute right-sided low back pain with right-sided sciatica; Sacroiliitis; Radiculopathy, lumbosacral region; Chronic right-sided low back pain with right-sided sciatica Discharge Disposition: Discharge to home or self care 01/09/2025 3:10 PM CDT Lab [facility] [address] [place] [address] 01/09/2025 2:55 PM CDT Lab [facility] ([facility]) [address] [place] [phone] Uncontrolled type 2 diabetes mellitus with hyperglycemia (HCC); Obstructive sleep apnea; Iron deficiency; Restless leg syndrome 01/09/2025 11:30 AM CDT - 01/09/2025 11:59 PM CDT Hospital Encounter [facility] Breast Imaging [facility] ([facility]) [address] [place] [address] Screening mammogram, encounter for Discharge Disposition: Discharge to home or self care 01/09/2025 10:30 AM CDT Office Visit [facility] Endocrinology Metabolism and Lipid [address] 13th [place] [address] Shirley Teixeira PA Uncontrolled type 2 diabetes mellitus with hyperglycemia (HCC) (Primary Dx); Benign hypertension; Mixed hyperlipidemia; Morbid obesity with BMI of 50.0-59.9, adult (HCC); 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; detention (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); Encounter for comprehensive diabetic foot examination, type 2 diabetes mellitus (HCC) 01/09/2025 Results Follow-Up [facility] Sleep Medicine at [address] [place] [address] Iqra Jensen MD [facility] 01/09/2025 Results Follow-Up [facility] Endocrinology Metabolism and Lipid [address] [place] [address] [place] [address] Shirley Teixeira PA Vitamin D 25 hydroxy, Vitamin B12, TSH, Additional followed-up results: 6 01/06/2025 2:00 PM CDT Therapy [facility] Rehabilitation Services at [address] [address] Tiffanie Cantu, PT Lymphedema (Primary Dx); Decreased functional mobility and endurance 01/06/2025 Plan of Care Documentation [facility] Rehabilitation Services at [address] [address] 01/06/2025 Documentation [facility] Rehabilitation Services at [address] [address] Tiffanie Cantu, PT compression script 01/06/2025 Plan of Care Documentation [facility] Rehabilitation Services at [address] [address] 01/04/2025 12:00 PM CDT Therapy [facility] Services at [address] [address] Tiffanie Cantu, PT Lymphedema (Primary Dx); Decreased functional mobility and endurance 01/03/2025 Results Follow-Up [facility] Pulmonary at [address] [place] [address] Canelo Doan DO Transthoracic Echo (TTE) Complete W Doppler/CF 01/02/2025 9:30 AM CDT Office Visit [facility] Sleep Medicine at [address] [place] [address] Iqra Jensen MD Obstructive sleep apnea (Primary Dx); Hypersomnia; Obesity, unspecified class, unspecified obesity type, unspecified whether serious comorbidity present; Iron deficiency; Restless leg syndrome 12/30/2024 Telephone [facility] Gastroenterology at [address] [place] [address] Ad Camacho MD 12/29/2024 9:00 AM CDT Therapy [facility] Rehabilitation Services at [address] [place] [address] Ele Vazquez PT Lymphedema (Primary Dx); Decreased functional mobility and endurance 12/29/2024 Plan of Care Documentation [facility] Rehabilitation Services at [address] [address] 12/23/2024 6:57 AM CDT - 12/23/2024 11:59 PM CDT Hospital Encounter [facility] Cardiology 1 [place] [address] Hypoxia Discharge Disposition: Discharge to home or self care 12/22/2024 Telephone [facility] Gastroenterology at [address], [place] [address] Alex Billings MD 12/21/2024 2:30 PM CDT Office Visit [facility] Medical [facility] Primary Care at [place] [id number] [facility] [address] [place] [phone] Lynn Rodriguez MD Acute right-sided low back pain with right-sided sciatica (Primary Dx); Dysphagia, unspecified type; Lymphedema; Uncontrolled type 2 diabetes mellitus with hyperglycemia (HCC); Benign hypertension; Mixed hyperlipidemia; Moderate persistent asthma without complication; Class 3 severe obesity due to excess calories with serious comorbidity and body mass index (BMI) of 50.0 to 59.9 in adult; Chronic hypoxic respiratory failure (HCC); Autoimmune disease 12/14/2024 10:10 AM CDT Ancillary Procedure [facility] 12/13/2024 2:30 PM CDT Office Visit [facility] Pulmonary at [place] [address] [facility] [address] [place] [address] Canelo Doan DO Moderate persistent asthma without complication (Primary Dx); Class 3 severe obesity due to excess calories with serious comorbidity and body mass index (BMI) of 45.0 to 49.9 in adult; Chronic hypoxic respiratory failure (HCC); 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 11/30/2024 3:30 PM CDT Office Visit [facility] at [address] [address] Minnie House NP Acute non-recurrent frontal sinusitis (Primary Dx) from Last 3 Months Immunizations Immunization Administration Dates Next Due Influenza, Quadrivalent, Rosita l Culture-based MDCK, Preservative Free, Antibiotic Free, Intramuscular 05/13/2023,05/23/2022 Influenza, Quadrivalent, Spl it, Intramuscular 05/03/2015 Influenza, Quadrivalent, Spl it, Preservative Free, Intramuscular 05/16/2020,05/07/2018 Influenza, Unspecified 05/16/2021,2020,04/22/2021(Defer red: Patient Refused),03/19/2021(Deferred: Patient Refused),05/12/2019,05/07/2017 Sermo (J&J) SARS-CoV-2 Vaccination 10/05/2020 Pneumococcal Conjugate Pcv20 04/06/2024 Pneumococcal Polysaccharide PPV23 08/03/2010, Td, adsorbed 07/05/2018 Tdap 10/04/2007 Surgical History Surgery Date Site/Laterality Comments OTHER SURGICAL HISTORY Sleep apnea: CPAP OTHER SURGICAL HISTORY Internal derangement of the knee: knee arthroscopy MYOMECTOMY Myomectomy COLONOSCOPY 04/02/2022 KNEE ARTHROSCOPY W/ LATERAL RELEASE ABDOMINAL SURGERY Medical History Medical History Date Comments Hypertension Hypertension Hx Other Medical Hyperlipidemia; Comments: [facility] 04/11/2014 - Hx Other Medical Diabetes; Comme nts: [facility] 04/11/2014 - Hx Other Medical Seasonal allerg ies; Comments: W 04/11/2014 - Hx Other Medical Sleep apnea; Co mments: W 04/11/2014 - Hx Other Medical 2013 Internal derang ement of the knee; Comments: W 04/11/2014 - Hx Other Medical Depression; Com ments: [facility] 04/11/2014 - Hx Other Medical D and C Hx Other Medical D/C 02/2016 Hx Other Medical R knee meniscal repair 05/2014 Hx Other Medical Large uterine f ibroid resected 04/2015, uterine darby Hx Other Medical IVF transfer 2015 Hx Other Medical 01: 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 Intelligence 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 -- Dr Estefani Sheikh Morbid obesity (HCC) Hyperlipidemia Type 2 diabetes mellitus (HCC) Sleep apnea Depression Arthritis Family History Medical History Relation Name Comments Cancer Father Adam Skin cancer Father Adam Cancer, skin; Alzheimer's disease Maternal Grandmother Naomi Diabetes Maternal Grandmother Naomi Diabete s; Arthritis Mother Zora Breast cancer Mother Zora Diabetes Mother Zora Diabetes; Diabetes [...] points, staff should administer the PHQ-9) 0 02/15/2025 Personal Safety Answer Date Recorded Have you ever been in or are you currently in a harmful physical or emotional relationship or is someone making you feel afraid or unsafe? Denies 02/02/2025 Comments No Sex and Gender Information Value Date Recorded Sex Assigned at Not on file Legal Sex Female 11:54 PM [employer] Gender Identity Female 09/19/2020 8:37 AM [employer] Sexual Orientation Straight 09/19/2020 8: 37 AM [employer] SERVICE Obstetrics History Para Term AB IAB SAB Ectopic Multiple Livin g Live Births 0 0 0 Last Filed Vital Signs Vital Sign Reading Time Taken Comments Blood Pressure 144/76 02/15/2025 8:43 AM CDT Pulse 104 02/15/2025 8:43 AM CDT Temperature 36.7 C (98.1 F) 02/15/2025 8:43 AM CDT Respiratory Rate 18 02/15/2025 8:43 AM CDT Oxygen Saturation 97% 02/15/2025 8:43 AM CDT Inhaled Oxygen Concentration - - Weight 150.6 kg (332 lb) 02/15/2025 8:43 AM CDT Height 167.6 cm (5' 6) 02/15/2025 8:43 AM CDT Body Mass Index 53.59 02/15/2025 8:43 AM CDT Plan of Treatment Upcoming Encounters Date Type Department Care Team (Latest Contact Info) Description 04/27/2025 7:30 AM CDT Hospital Encounter [address] [address] Ad Camacho MD [address] [facility] [place] [address] 04/27/2025 7:30 AM CDT - 04/27/2025 8:00 AM CDT Surgery [address] [address] Ad Camacho MD [address] [facility] [address] [place] [address] ESOPHAGOGASTRODUODENOSCOPY Scheduled Procedures Name Priority Associated Diagnoses Date/Ti me ESOPHAGOGASTRODUODENOSCOPY Dysphagia, unspecified type 04/27/2025 7:30 AM CDT Health Maintenance Due Date Last Done Comments Cervical Cancer Screening 1976 Hepatitis C Screening 1976 Hepatitis B Screening 1994 Zoster Vaccine (1 of 2) 1995 Covid-19 Vaccine (2023-2 5 season) 2024 05/13/2023, 05/23/2022, 06/20/2021, Additional history exists Dilated Eye Exam 11/10/2024 11/10/2022, 03/2022, 04/23/2021, Additional history exists Regular Well Visit/Exam 18-64 01/04/2025, 07/18/2022, 07/17/2021, Additional history exists Influenza Vaccine (#1) 2025 3, 05/23/2022, 05/16/2021, Additional history exists Foot Exam 04/06/2025 04/06/2024, 07/03, 03/26/2021, Additional history exists Hemoglobin A1C 07/11/2025 01/09/2025, 08/03, 07/13/2024, Additional history exists Albumin Creatinine Ratio, Urine 01/09/2026 01/09/2025, 12/29/2023, 12/29/2023, Additional history exists Breast Cancer Screening-Mammogram 01/09/2026 01/09/2025, 12/29/2023, 02/25/2023, Additional history exists Lipid Panel 01/09/2026 01/09/2025, 12/02, 12/29/2023, Additional history exists Depression Screening 02/15/2026 02/15/2025, 12/21/2024, 08/23/2024, Additional history exists eGFR 02/15/2026 02/15/2025, 06/0 04/2025, 11/09/2024, Additional history exists Colon Cancer Screening-Colonoscopy 04/02/20272021 DTaP/Tdap/Td Vaccine (3 - Td or Tdap) 07/05/2028 07/05/2018, 10/04/2007 Pneumococcal vaccine <65 Completed 024, 08/03/2010, 08/17/2009 Procedures Procedure Name Priority Date/Time Associated Diagnosis Comments NOTE Routine 02/15/2025 10:41 AM CDT C4 COMPLEMENT Routine 02/15/2025 10:41 AM CDT Cutaneous vasculitis C3 COMPLEMENT Routine 02/15/2025 10:41 AM CDT Cutaneous vasculitis CREATINE KINASE (CK), TOTAL Routine 02/15/2025 10:41 AM CDT Cutaneous vasculitis CYCLIC CITRUL PEPTIDE ANTIBODY, IGG Routine 02/15/2025 10:41 AM CDT Cutaneous vasculitis RHEUMATOID FACTOR Routine 02/15/2025 10:41 AM CDT Cutaneous vasculitis ANTI-DOUBLE STRANDED DNA ANTIBODIES Routine 02/15/2025 10:41 AM CDT Cutaneous vasculitis LALO QUALITATIVE WITH REFLEX TO LALO QUANTITATIVE Routine 02/15/2025 10:41 AM CDT Cutaneous vasculitis COMPREHENSIVE METABOLIC PANEL Routine 02/15/2025 10:41 AM CDT Cutaneous vasculitis CBC WITH AUTO DIFFERENTIAL Routine 02/15/2025 10:41 AM CDT Cutaneous vasculitis ERYTHROCYTE SEDIMENTATION RATE Routine 02/15/2025 10:41 AM CDT Cutaneous vasculitis CRP, HIGH SENSITIVITY Routine 02/15/2025 10:41 AM CDT Cutaneous vasculitis URINALYSIS AND REFLEX TO MICROSCOPIC Routine 02/15/2025 10:41 AM CDT Cutaneous vasculitis PROTEIN / CREATININE RATIO, URINE, RANDOM Routine 02/15/2025 10:41 AM CDT Cutaneous vasculitis PROTEINASE-3 ANTIBODY Routine 02/15/2025 10:41 AM CDT Cutaneous vasculitis MYELOPEROXIDASE ANTIBODY Routine 02/15/2025 10:41 AM CDT Cutaneous vasculitis PAIN MGMT IMAGING LUMBAR/CAUDAL EPIDURAL STEROID INJ Schedule Routine, Read Routine (OP Routine) 02/14/2025 1:38 PM CDT Spinal stenosis of lumbar region with neurogenic claudication MRI LUMBAR SPINE WO CONTRAST Schedule Routine, Read Routine (OP Routine) 02/02/2025 6:25 PM CDT Chronic low back pain with sciatica, sciatica laterality unspecified, unspecified back pain laterality XR HIP RIGHT W PELVIS 2 OR 3 VIEWS ED 02/02/2025 4:26 PM CDT XR KNEE RIGHT 4 OR MORE VIEWS ED 02/02/2025 4:06 PM CDT XR CHEST 1 VIEW ED 02/02/2025 4:[address] HEAD CERVICAL FACIAL WO CONTRAST ED 02/02/2025 3:32 PM CDT NEUROMUSCULAR SPECIMEN TRACKING OUTPATIENT Routine 01/27/2025 2:03 PM CDT Cutaneous vasculitis XR WRIST LEFT 3 OR MORE VIEWS Schedule Routine, Read Routine (OP Routine) 01/24/2025 10:49 AM CDT Cutaneous vasculitis XR HAND RIGHT 3 OR MORE VIEWS Schedule Routine, Read Routine (OP Routine) 01/24/2025 10:49 AM CDT Cutaneous vasculitis XR HAND LEFT 3 OR MORE VIEWS Schedule Routine, Read Routine (OP Routine) 01/24/2025 10:49 AM CDT Cutaneous vasculitis XR WRIST RIGHT 3 OR MORE VIEWS Schedule Routine, Read Routine (OP Routine) 01/24/2025 10:49 AM CDT Cutaneous vasculitis ANTI-NEUTROPHILIC CYTOPLASMIC ANTIBODY (ANCA) WITH REFLEX TO MPO AND PR3 ABS Routine 01/24/2025 9:41 AM CDT Cutaneous vasculitis KATHIE ANTIBODY EVALUATION WITH REFLEX Routine 01/24/2025 9:41 AM CDT Cutaneous vasculitis NEUROMUSCULAR TESTING Routine 01/24/2025 12:00 AM CDT Cutaneous vasculitis EGFR Routine 01/09/2025 12:30 PM CDT Uncontrolled type 2 diabetes mellitus with hyperglycemia (HCC) DIFFERENTIAL AUTO Routine 01/09/2025 12:30 PM CDT Uncontrolled type 2 diabetes mellitus with hyperglycemia (HCC) FERRITIN Routine 01/09/2025 12:30 PM CDT Obstructive sleep apnea Iron deficiency Restless leg syndrome CBC WITH AUTO DIFFERENTIAL Routine 01/09/2025 12:30 PM CDT Uncontrolled type 2 diabetes mellitus with hyperglycemia (HCC) COMPREHENSIVE METABOLIC PANEL Routine 01/09/2025 12:30 PM CDT Uncontrolled type 2 diabetes mellitus with hyperglycemia (HCC) ALBUMIN CREATININE RATIO, URINE Routine 01/09/2025 12:30 PM CDT Uncontrolled type 2 diabetes mellitus with hyperglycemia (HCC) LIPID PANEL Routine 01/09/2025 12:30 PM CDT Uncontrolled type 2 diabetes mellitus with hyperglycemia (HCC) TSH Routine 01/09/2025 12:30 PM CDT Uncontrolled type 2 diabetes mellitus with hyperglycemia (HCC) VITAMIN B12 Routine 01/09/2025 12:30 PM CDT Uncontrolled type 2 diabetes mellitus with hyperglycemia (HCC) VITAMIN D 25 HYDROXY Routine 01/09/2025 12:30 PM CDT Uncontrolled type 2 diabetes mellitus with hyperglycemia (HCC) SCREENING MAMMOGRAM BILATERAL W VINCENZO Schedule Routine, Read Routine (OP Routine) 01/09/2025 12:12 PM CDT Screening mammogram, encounter for POCT HEMOGLOBIN A1C Routine 01/09/2025 10:44 AM CDT Uncontrolled type 2 diabetes mellitus with hyperglycemia (HCC) POCT GLUCOSE Routine 01/09/2025 10:43 AM CDT Uncontrolled type 2 diabetes mellitus with hyperglycemia (HCC) TRANSTHORACIC ECHO (TTE) COMPLETE W DOPPLER/CF WO CONTRAST Routine 12/23/2024 7:[address] BODY OUTSIDE REFERENCE Routine 12/14/2024 10:10 AM CDT DIABETIC EYE EXAM Routine 11/10/2022 COLONOSCOPY 04/02/2022 9:28 AM CDT DIABETIC FOOT EXAM Routine 03/26/2021 from Last 3 Months or Most Recently Relevant to Health Maintenance Results * LALO ab ql w/rflx to LALO qn (02/15/2025 10:41 AM CDT) LALO, qual NEGATIVE NEGATIVE [facility] Comment: LALO IFA is a first line screen for detecting the presence of up to approximately 150 autoantibodies in various autoimmune diseases. A negative LALO IFA result suggests an LALO-associated autoimmune disease is not present at this time, but is not definitive. If there is high clinical suspicion for Sjogren's syndrome, testing for anti-SS-A/Ro antibody should be considered. Anti-Ashly-1 antibody should be considered for clinically suspected inflammatory myopathies. AC-0: Negative International Consensus on LALO Patterns (https://doi.org/10.1515/ivxt-9056-0035) For additional information, please refer to http://education.[employer]/faq/LZY047 (This link is being provided for informational/ educational purposes only.) Blood 02/15/2025 10:4 1 AM CDT 02/15/2025 10:43 AM CDT Narrative [facility] - 02/16/2025 3:55 PM CDT FASTING:YES FASTING: YES Lucian Trinidad MD PhD LAB BLOOD ORDERABLE S Final Result Performing Organization Address City/[facility] Co de Phone Number [facility] [address] [place] [address] * Anti-double stranded DNA abs (02/15/2025 10:41 AM CDT) DNA (DS) ab <1 IU/mL [facility] Comment: IU/mL Interpretation < or = 4 Negative 5-9 Indeterminate > or = 10 Positive Blood 02/15/2025 10:4 1 AM CDT 02/15/2025 10:43 AM CDT Narrative [facility] - 02/16/2025 7:07 AM CDT FASTING:YES FASTING: YES Lucian Trinidad MD PhD LAB BLOOD ORDERABLE S Final Result [facility] [address] [place] [address] * NOTE (02/15/2025 10:41 AM CDT) Pathologist [facility] Comment: This urine was analyzed for the presence of WBC, RBC, bacteria, casts, and other formed elements. Only those elements seen were reported. 02/15/2025 10:4 1 AM CDT 02/15/2025 10:43 AM CDT Narrative [facility] - 02/16/2025 6:35 AM CDT FASTING:YES FASTING: YES Lucian Trinidad MD PhD LAB BLOOD ORDERABLE S Final Result Performing Organization Address [facility] de Phone Number [facility] [address] [place] [address] * C4 complement (02/15/2025 10:41 AM CDT) [facility] Complement component C4C 24 15 - 57 mg/dL [facility] Blood 02/15/2025 10:4 1 AM CDT 02/15/2025 10:43 AM CDT Narrative [facility] - 02/16/2025 7:26 AM CDT FASTING:YES FASTING: YES Lucian Trinidad MD PhD LAB BLOOD ORDERABLE S Final Result Performing Organization Address [facility] de Phone Number [facility] [address] [place] [address] * PR3 - proteinase 3, Ab (02/15/2025 10:41 AM CDT) [facility] Proteinase-3 ab <1.0 [facility] Comment: Value Interpretation ----- <1.0 No Antibody Detected > or = 1.0 Antibody Detected Autoantibodies to proteinase-3 (NM-3) are accepted as characteristic for granulomatosis with polyangiitis (GPA, Brent's), and are detectable in 95% of the histologically proven cases. The cytoplasmic IFA pattern, (c-ANCA), is based largely on autoantibody to NM-3 which serves as the primary antigen. These autoantibodies are present in active disease. Blood 02/15/2025 10:4 1 AM CDT 02/15/2025 10:43 AM CDT Narrative [facility] - 02/16/2025 7:07 AM CDT FASTING:YES FASTING: YES Lucian Trinidad MD PhD LAB BLOOD ORDERABLE S Final Result Performing Organization Address [facility] de Phone Number [facility] [address] [place] [address] * MPO - myeloperoxidase antibody (02/15/2025 10:41 AM CDT) MYELOPEROXIDASE ANTIBODY <1.0 [facility] Comment: Value Interpretation ----- <1.0 No Antibody Detected > or = 1.0 Antibody Detected Autoantibodies to myeloperoxidase (MPO) are commonly associated with the following small-vessel vasculitides: microscopic polyangiitis, polyarteritis nodosa, Churg-Kyrie syndrome, necrotizing and crescentic glomerulonephritis and occasionally granulomatosis with polyangiitis (GPA, Brent's). The perinuclear IFA pattern, (p-ANCA) is based largely on autoantibody to myeloperoxidase which serves as the primary antigen. These autoantibodies are present in active disease. Blood 02/15/2025 10:4 1 AM CDT 02/15/2025 10:43 AM CDT Narrative [facility] - 02/16/2025 7:07 AM CDT FASTING:YES FASTING: YES Lucian Trinidad MD PhD LAB BLOOD ORDERABLE S Final Result Performing Organization Address [facility] Co de Phone Number [facility] [address] [place] [address] * (ABNORMAL) Urinalysis reflex to microscopic (02/15/2025 10:41 AM CDT) Color, ur YELLOW YELLOW [facility] Appearance, ur CLOUDY(A) CLEAR [facility] Specific gravity 1.039(H) 1.001 - 1.035 [facility] pH, ur < OR = 5.0(A) 5.0 - 8.0 [facility] Glucose, ur 2+(A) NEGATIVE [facility] Bilirubin, ur NEGATIVE NEGATIVE [facility] Ketones, ur TRACE(A) NEGATIVE [facility] Blood, ur 1+(A) NEGATIVE [facility] Protein, ur, quant 1+(A) NEGATIVE [facility] Nitrites, ur NEGATIVE NEGATIVE [facility] Leukocyte esterase, ur NEGATIVE NEGATIVE [facility] WBC, ur NONE SEEN < OR = 5 /HPF [facility] RBC, ur NONE SEEN < OR = 2 /HPF [facility] Epithelial cells, squamous, ur 20-40(A) < OR = 5 /HPF [facility] Bacteria, ur, quant FEW(A) NONE SEEN /HPF [facility] Hyaline cast NONE SEEN NONE SEEN /LPF [facility] Yeast, ur MANY(A) NONE SEEN /HPF [facility] Urine 02/15/2025 10:4 1 AM CDT 02/15/2025 10:43 AM CDT Narrative [facility] - 02/16/2025 6:35 AM CDT FASTING:YES FASTING: YES us Lucian Trinidad MD PhD LAB URINE ORDERABLE S Final Result [facility] [address] [place] [address] * (ABNORMAL) CBC with auto differential (02/15/2025 10:41 AM CDT) WBC 17.6(H) 3.8 - 10.8 Thousand/ uL [facility] RBC, POC 4.21 3.80 - 5.10 Million/u L [facility] Hgb 12.7 11.7 - 15.5 g/dL [facility] Hct 39.5 35.0 - 45.0 % [facility] MCV 93.8 80.0 - 100.0 fL [facility] MCH 30.2 27.0 - 33.0 pg [facility] MCHC 32.2 32.0 - 36.0 g/dL [facility] Comment: For adults, a slight decrease in the calculated MCHC value (in the range of 30 to 32 g/dL) is most likely not clinically significant; however, it should be interpreted with caution in correlation with other red cell parameters and the patient's clinical condition. Rdw 14.2 11.0 - 15.0 % [facility] Platelets 403(H) 140 - 400 Thousand/ uL [facility] MPV 10.6 7.5 - 12.5 fL [facility] Neutrophils, abs 15,664(H) 1,500 - 7,800 cells/uL [facility] Lymphocytes, abs 1,056 850 - 3,900 cells/uL [facility] Monocyte abs 827 200 - 950 cells/uL [facility] Eosinophils, abs 0(L) 15 - 500 cells/uL [facility] Basophils, abs 53 0 - 200 cells/uL [facility] Neutrophils 89 % [facility] Lymphocyte pct 6.0 % [facility] Monocytes 4.7 % [facility] Eosinophils 0.0 % [facility] Basophils 0.3 % [facility] Blood 02/15/2025 10:4 1 AM CDT 02/15/2025 10:43 AM CDT Narrative [facility] - 02/16/2025 4:26 AM CDT FASTING:YES FASTING: YES us Lucian Trinidad MD PhD LAB BLOOD ORDERABLE S Final Result [facility] [address] [address] * Cyclic citrul peptide antibody, IgG (02/15/2025 10:41 AM CDT) Cyclic citrullinated peptide ab, IgG <16 UNITS [facility] Comment: Reference Range Negative: <20 Weak Positive: 20-39 Moderate Positive: 40-59 Strong Positive: >59 Blood 02/15/2025 10:4 1 AM CDT 02/15/2025 10:43 AM CDT Narrative [facility] - 02/16/2025 4:08 PM CDT FASTING:YES FASTING: YES us Lucian Trinidad MD PhD LAB BLOOD ORDERABLE S Final Result Performing Organization Address City/[facility] Co de Phone Number [facility] [address] [place] [address] * (ABNORMAL) Protein / creatinine ratio, urine, random (02/15/2025 10:41 AM CDT) Pathologist [facility] Creatinine, ur 209 20 - 275 mg/dL [facility] Protein/creatin ine ratio 177 24 - 184 mg/g creat [facility] Protein/Creatin ine Ratio 0.177 0.024 - 0.184 mg/mg creat [facility] Protein, ur, quant 37(H) 5 - 24 mg/dL [facility] Urine 02/15/2025 10:4 1 AM CDT 02/15/2025 10:43 AM CDT Narrative [facility] - 02/16/2025 4:43 AM CDT FASTING:YES FASTING: YES us Lucian Trinidad MD PhD LAB URINE ORDERABLE S Final Result Performing Organization Address City/[facility] Co de Phone Number [facility] [address] [place] [address] * Erythrocyte sedimentation rate (02/15/2025 10:41 AM CDT) Erythrocyte sedimentation rate 6 < OR = 20 mm/h [facility] Blood 02/15/2025 10:4 1 AM CDT 02/15/2025 10:43 AM CDT Narrative [facility] - 02/16/2025 7:26 AM CDT FASTING:YES FASTING: YES us Lucian Trinidad MD PhD LAB BLOOD ORDERABLE S Final Result Performing Organization Address [facility] de Phone Number [facility] [address] [place] [address] * Rheumatoid factor (02/15/2025 10:41 AM CDT) Rheumatoid factor, quant <10 <14 IU/mL [facility] Blood 02/15/2025 10:4 1 AM CDT 02/15/2025 10:43 AM CDT Narrative [facility] - 02/16/2025 6:07 AM CDT FASTING:YES FASTING: YES us Lucian Trinidad MD PhD LAB BLOOD ORDERABLE S Final Result Performing Organization Address [facility] de Phone Number [facility] [address] [place] [address] * C3 complement (02/15/2025 10:41 AM CDT) Pathologist [facility] Complement component C3C 188 83 - 193 mg/dL [facility] Blood 02/15/2025 10:4 1 AM CDT 02/15/2025 10:43 AM CDT Narrative [facility] - 02/16/2025 7:26 AM CDT FASTING:YES FASTING: YES us Lucian Trinidad MD PhD LAB BLOOD ORDERABLE S Final Result Performing Organization Address [facility] de Phone Number [facility] [address] [place] [address] * CRP (cardiac risk) (02/15/2025 10:41 AM CDT) hsCRP 2.9 mg/L [facility] Comment: Reference Range Optimal <1.0 Yobani TAN et al. Endocr Pract.2017;23(Suppl 2):1-87. For ages >17 Years: hs-CRP mg/L Risk According to AHA/CDC Guidelines <1.0 Lower relative cardiovascular risk. 1.0-3.0 Average relative cardiovascular risk. 3.1-10.0 Higher relative cardiovascular risk. Consider retesting in 1 to 2 weeks to exclude a benign transient elevation in the baseline CRP value secondary to infection or inflammation. >10.0 Persistent elevation, upon retesting, may be associated with infection and inflammation. Corey TA, Adenike GA, Piyush RW, et al. Markers of inflammation and cardiovascular disease: application to clinical and public health practice: A statement for healthcare professionals from the Centers for Disease Control and Prevention and the [place] [employer]. Circulation 2003; 107(3): 499-511. Blood 02/15/2025 10:4 1 AM CDT 02/15/2025 10:43 AM CDT Narrative [facility] - 02/16/2025 6:07 AM CDT FASTING:YES FASTING: YES us Lucian Trinidad MD PhD LAB BLOOD ORDERABLE S Final Result Performing Organization Address [facility] de Phone Number [facility] [address] [place] [address] * Creatine kinase (CK), total (02/15/2025 10:41 AM CDT) [facility] CK 82 20 - 239 U/L [facility] Blood 02/15/2025 10:4 1 AM CDT 02/15/2025 10:43 AM CDT Narrative [facility] - 02/16/2025 5:36 AM CDT FASTING:YES FASTING: YES us Lucian Trinidad MD PhD LAB BLOOD ORDERABLE S Final Result Performing Organization Address [facility] de Phone Number [facility] [address] [place] [address] * (ABNORMAL) Comprehensive metabolic panel (02/15/2025 10:41 AM CDT) Glucose 279(H) 65 - 99 mg/dL [facility] Comment: Fasting reference interval For someone without known diabetes, a glucose value >125 mg/dL indicates that they may have diabetes and this should be confirmed with a follow-up test. BUN 24 7 - 25 mg/dL [facility] Creatinine 0.88 0.50 - 0.99 mg/dL [facility] eGFR 81 > OR = 60 mL/min/1.7 3m2 [facility] BUN/creat ratio SEE NOTE: 6 - 22 (calc) [facility] Comment: Not Reported: BUN and Creatinine are within reference range. Sodium 139 135 - 146 mmol/L [facility] Potassium, pl 4.8 3.5 - 5.3 mmol/L [facility] Chloride 100 98 - 110 mmol/L [facility] CO2 29 20 - 32 mmol/L [facility] Calcium 9.6 8.6 - 10.2 mg/dL [facility] Protein, sr 6.5 6.1 - 8.1 g/dL [facility] Albumin 4.3 3.6 - 5.1 g/dL [facility] GLOBULIN 2.2 1.9 - 3.7 g/dL (calc) [facility] Alb/glob ratio 2.0 1.0 - 2.5 (calc) [facility] Bilirubin, total 0.5 0.2 - 1.2 mg/dL [facility] Alk phos 50 31 - 125 U/L [facility] AST 18 10 - 35 U/L [facility] ALT (SGPT) 65(H) 6 - 29 U/L [facility] Blood 02/15/2025 10:4 1 AM CDT 02/15/2025 10:43 AM CDT Narrative [facility] - 02/16/2025 5:36 AM CDT FASTING:YES FASTING: YES us Lucian Trinidad MD PhD LAB BLOOD ORDERABLE S Final Result [facility] [address] [address] * Imaging Lumbar/Caudal Epidural Steroid INJ ([id number]) (02/14/2025 1:38 PM CDT) Narrative [facility] - 02/14/2025 1:38 PM CDT The images from this study are not interpreted by Radiology. Please refer to the physician's procedure / OR operative note. us Amada Baldwin MANAGER CONTRACT IMG PAIN MGMT PROCEDURE S Final Result [facility] * MRI Lumbar Spine WO Contrast (02/02/2025 6:25 PM CDT) Anatomical Region Laterality Modality Spine N/A Magnetic Resonan ce 02/06/2025 9:01 AM CDT Impressions 02/06/2025 9:01 AM CDT Significant multilevel disease with multilevel spinal stenosis with disc herniations are seen L3-L4 and L5-S1. The L3-L4 related inferiorly behind the body of L4. Facet joint arthropathy. Electronically signed by: Kota Mcmillan M.D. Narrative 02/06/2025 9:01 AM CDT EXAMINATION: MRI LUMBAR SPINE WO CONTRAST HISTORY: 49-year-old woman low back pain. TECHNIQUE: Multiplanar multisequence spin-echo images obtained FINDINGS: Correlation is made with sagittal reformatted images of the lumbar spine obtained at on outside CT abdomen pelvis of 12/14/2024. Additionally the patient has an MRI dated 10/03/2008. When compared with the CT from 2024, the alignment remains anatomic. The degree of degeneration is similar however there is significant progression of degenerative disease since 2008. Current examination demonstrates normal alignment. Vertebral body heights are normal. Narrowing and degeneration L2-L3 L3-L4 L4-L5 L5-S1 associated with ventral defects at all levels. Bone marrow signal intensity demonstrates chronic degenerative changes within the bone marrow with sclerosis at L4-L5 L5-S1. The remaining bone marrow signal intensity is normal. The conus medullaris is normal. Transaxial images: T12-L1 disc space normal. Moderate facet joint disease. No stenosis L1-L2 disc space normal moderate facet joint disease without stenosis L2-L3 demonstrates broad-based diffuse disc bulging with significant facet joint disease, Central and lateral recess spinal stenosis, epidural lipomatosis. Foraminal stenosis bilaterally worse on the right than the left. L3-L4 demonstrates broad-based diffuse disc bulging, short pedicles, epidural lipomatosis and facet joint disease with central and lateral recess stenosis and bilateral foraminal stenosis worse on the left than the right. There appears to be a synovial cyst arising from the facet joint on the left side L3-L4. This is projected superiorly. There is disc herniation to the right the midline with inferior migration behind the body of L4. L4-L5 demonstrates broad-based bulge with foraminal stenosis right worse than left. Moderate facet joint disease. L5-S1 demonstrates a large disc herniation central and left the midline extending into the lateral recess and intervertebral foramen on the left side with foraminal encroachment and root compression. Mild facet joint disease. When compared with the previous study, these findings are progressed. Procedure Note Kota Mcmillan MD - 02/06/2025 EXAMINATION: MRI LUMBAR SPINE WO CONTRAST HISTORY: 49-year-old woman low back pain. TECHNIQUE: Multiplanar multisequence spin-echo images obtained FINDINGS: Correlation is made with sagittal reformatted images of the lumbar spine obtained at on outside CT abdomen pelvis of 12/14/2024. Additionally the patient has an MRI dated 10/03/2008. When compared with the CT from 2024, the alignment remains anatomic. The degree of degeneration is similar however there is significant progression of degenerative disease since 2008. Current examination demonstrates normal alignment. Vertebral body heights are normal. Narrowing and degeneration L2-L3 L3-L4 L4-L5 L5-S1 associated with ventral defects at all levels. Bone marrow signal intensity demonstrates chronic degenerative changes within the bone marrow with sclerosis at L4-L5 L5-S1. The remaining bone marrow signal intensity is normal. The conus medullaris is normal. Transaxial images: T12-L1 disc space normal. Moderate facet joint disease. No stenosis L1-L2 disc space normal moderate facet joint disease without stenosis L2-L3 demonstrates broad-based diffuse disc bulging with significant facet joint disease, Central and lateral recess spinal stenosis, epidural lipomatosis. Foraminal stenosis bilaterally worse on the right than the left. L3-L4 demonstrates broad-based diffuse disc bulging, short pedicles, epidural lipomatosis and facet joint disease with central and lateral recess stenosis and bilateral foraminal stenosis worse on the left than the right. There appears to be a synovial cyst arising from the facet joint on the left side L3-L4. This is projected superiorly. There is disc herniation to the right the midline with inferior migration behind the body of L4. L4-L5 demonstrates broad-based bulge with foraminal stenosis right worse than left. Moderate facet joint disease. L5-S1 demonstrates a large disc herniation central and left the midline extending into the lateral recess and intervertebral foramen on the left side with foraminal encroachment and root compression. Mild facet joint disease. When compared with the previous study, these findings are progressed. IMPRESSION: Significant multilevel disease with multilevel spinal stenosis with disc herniations are seen L3-L4 and L5-S1. The L3-L4 related inferiorly behind the body of L4. Facet joint arthropathy. Electronically signed by: Kota Mcmillan M.D. Adam Corrales MD IMG MRI PROCEDURES Fi nal Result * XR Hip Right 2 or 3 Views W Pelvis (02/02/2025 4:26 PM CDT) Anatomical Region Laterality Modality Lower Extremities, Hip, Pelvis Right C omputed Radiography 02/02/2025 4:30 PM CDT Impressions 02/02/2025 4:30 PM CDT No fracture or dislocation is seen. Electronically signed by: Kan Desai M.D. Narrative 02/02/2025 4:30 PM CDT EXAMINATION: XR HIP RIGHT 2 OR 3 VIEWS W PELVIS HISTORY: The patient is a 41-year-old female who presents with a fall. TECHNIQUE: AP view of the pelvis along with AP and frog-leg view of the right hip. FINDINGS: No fracture or dislocation is seen. Both hip joints are well preserved. Procedure Note Kan Desai MD - 02/02/2025 EXAMINATION: XR HIP RIGHT 2 OR 3 VIEWS W PELVIS HISTORY: The patient is a 41-year-old female who presents with a fall. TECHNIQUE: AP view of the pelvis along with AP and frog-leg view of the right hip. FINDINGS: No fracture or dislocation is seen. Both hip joints are well preserved. IMPRESSION: No fracture or dislocation is seen. Electronically signed by: Kan Desai M.D. Sumit Yu MD IMG XR PROCEDURES Final Result * XR Knee Right 4 or More Views (02/02/2025 4:06 PM CDT) Anatomical Region Laterality Modality Lower Extremities, Knee Right Computed Radiography 02/02/2025 4:08 PM CDT Impressions 02/02/2025 4:08 PM CDT No fracture or dislocation is seen. Electronically signed by: Kan Desai M.D. Narrative 02/02/2025 4:08 PM CDT EXAMINATION: XR KNEE RIGHT 4 OR MORE VIEWS HISTORY: The patient is a 49-year-old female who presents with a fall. TECHNIQUE: 4 views. FINDINGS: No fracture or dislocation is seen. The tibiofemoral and the patellofemoral joints are normal. Procedure Note Kan Desai MD - 02/02/2025 EXAMINATION: XR KNEE RIGHT 4 OR MORE VIEWS HISTORY: The patient is a 49-year-old female who presents with a fall. TECHNIQUE: 4 views. FINDINGS: No fracture or dislocation is seen. The tibiofemoral and the patellofemoral joints are normal. IMPRESSION: No fracture or dislocation is seen. Electronically signed by: Kan Desai M.D. Sumit Yu MD G XR PROCEDURES Final Result * XR Chest 1 Vw (02/02/2025 4:06 PM CDT) Anatomical Region Laterality Modality Body, Chest N/A Computed Radiogr aphy 02/02/2025 4:07 PM CDT Impressions 02/02/2025 4:07 PM CDT No active disease. Electronically signed by: Kan Desai M.D. Narrative 02/02/2025 4:07 PM CDT EXAMINATION: XR CHEST 1 VIEW HISTORY: The patient is a 49-year-old female who presents with a fall. Comparison made with the previous study dated 11/17/2024. TECHNIQUE: AP portable view of the chest. FINDINGS: Lungs clear. Cardiovascular structures unremarkable. Procedure Note Kan Desai MD - 02/02/2025 EXAMINATION: XR CHEST 1 VIEW HISTORY: The patient is a 49-year-old female who presents with a fall. Comparison made with the previous study dated 11/17/2024. TECHNIQUE: AP portable view of the chest. FINDINGS: Lungs clear. Cardiovascular structures unremarkable. IMPRESSION: No active disease. Electronically signed by: Kan Desai M.D. Sumit Yu MD IMG XR PROCEDURES Final Result * CT Head Cervical Face WO Contrast (02/02/2025 3:32 PM CDT) Anatomical Region Laterality Modality Head and Neck N/A Computed Tomogra phy 02/02/2025 3:42 PM CDT Impressions 02/02/2025 3:42 PM CDT No intracranial bleed, mass or acute infarct. No fracture of the facial bones. No fracture of the cervical spine. Electronically signed by: Kan Desai M.D. Narrative 02/02/2025 3:42 PM CDT EXAMINATION: CT HEAD CERVICAL FACIAL WO CONTRAST HISTORY: The patient is a 49-year-old female who presents with a fall, injuring her head and face. TECHNIQUE: Axial images were obtained through the brain with thin sections and viewed both in soft tissue and bone window settings. Following this, coronal and sagittal reconstructions were performed. Axial images were obtained through the facial bones with thin sections and viewed both in soft tissue and bone window settings. Following this, coronal and sagittal reconstructions were performed. Axial images were obtained through the cervical spine with thin sections and viewed both in soft tissue and bone window settings. Following this, coronal and sagittal reconstructions were performed. FINDINGS: Axial images through the brain reveals the 4th, 3rd and lateral ventricles to be normal in size and position. Cerebral sulci not prominent. No intracerebral hemorrhage or extra-axial fluid collection is noted. Images obtained in the coronal and sagittal planes adds no further information. Axial images obtained at bone window settings reveal the cranial vault to be intact. Mastoid air cells and paranasal sinuses are normally aerated. Axial images through the facial bones reveals the zygomatic bones, maxillary antral galvan, nasal bones and orbital margins to be intact. Paranasal sinuses are normally aerated. Both mandibles are intact as are the temporal mandibular joints. Both globes are intact as are the extraocular muscles. Images obtained in the coronal and sagittal planes adds no further information. Images through the cervical spine reveals alignment to be normal with no fracture or dislocation seen. Small degenerative osteophytes are seen radiating anteriorly off the bodies of C5 and C6. The disc spaces and facet joints are well preserved. No spinal stenosis. No prevertebral soft tissue swelling. Neurocentral joints are normal. The relationship of C1-C2 is well preserved. There is no narrowing of the neural foramina. The visualized lung apices are grossly normal. Procedure Note Kan Desai MD - 02/02/2025 EXAMINATION: CT HEAD CERVICAL FACIAL WO CONTRAST HISTORY: The patient is a 49-year-old female who presents with a fall, injuring her head and face. TECHNIQUE: Axial images were obtained through the brain with thin sections and viewed both in soft tissue and bone window settings. Following this, coronal and sagittal reconstructions were performed. Axial images were obtained through the facial bones with thin sections and viewed both in soft tissue and bone window settings. Following this, coronal and sagittal reconstructions were performed. Axial images were obtained through the cervical spine with thin sections and viewed both in soft tissue and bone window settings. Following this, coronal and sagittal reconstructions were performed. FINDINGS: Axial images through the brain reveals the 4th, 3rd and lateral ventricles to be normal in size and position. Cerebral sulci not prominent. No intracerebral hemorrhage or extra-axial fluid collection is noted. Images obtained in the coronal and sagittal planes adds no further information. Axial images obtained at bone window settings reveal the cranial vault to be intact. Mastoid air cells and paranasal sinuses are normally aerated. Axial images through the facial bones reveals the zygomatic bones, maxillary antral galvan, nasal bones and orbital margins to be intact. Paranasal sinuses are normally aerated. Both mandibles are intact as are the temporal mandibular joints. Both globes are intact as are the extraocular muscles. Images obtained in the coronal and sagittal planes adds no further information. Images through the cervical spine reveals alignment to be normal with no fracture or dislocation seen. Small degenerative osteophytes are seen radiating anteriorly off the bodies of C5 and C6. The disc spaces and facet joints are well preserved. No spinal stenosis. No prevertebral soft tissue swelling. Neurocentral joints are normal. The relationship of C1-C2 is well preserved. There is no narrowing of the neural foramina. The visualized lung apices are grossly normal. IMPRESSION: No intracranial bleed, mass or acute infarct. No fracture of the facial bones. No fracture of the cervical spine. Electronically signed by: Kan Desai M.D. Lizzette Garsia MD IMG CT PROCEDURES Final Result * Neuromuscular Specimen Tracking Outpatient Blood (01/27/2025 2:03 PM CDT) Blood Narrative [facility] - 01/27/2025 2:03 PM CDT Blood draw complete us Lucian Trinidad MD PhD LAB BLOOD ORDERABLE S Final Result [facility] Department [place] [address] * XR Hand Right 3 or More Views (01/24/2025 10:49 AM CDT) Anatomical Region Laterality Modality Upper Extremities, Hand Right Computed Radiography 01/24/2025 11:0 8 AM CDT Impressions 01/24/2025 11:08 AM CDT 1. Normal radiographic examinations of the hands and wrists. Electronically signed by: Onel Elias M.D. Narrative 01/24/2025 11:08 AM CDT EXAMINATION: XR HAND LEFT 3 OR MORE VIEWS, XR WRIST RIGHT 3 OR MORE VIEWS, XR HAND RIGHT 3 OR MORE VIEWS, XR WRIST LEFT 3 OR MORE VIEWS HISTORY: Bilateral hand and wrist pain FINDINGS: 3 view examinations of both hands and both wrists are read without comparison. Joint spaces, mineralization, and alignment of the hands and wrists are normal and symmetric. There is no erosion or periosteal reaction. There is no ankylosis, subluxation, or fracture. Procedure Note Onel Elias MD - 01/24/2025 EXAMINATION: XR HAND LEFT 3 OR MORE VIEWS, XR WRIST RIGHT 3 OR MORE VIEWS, XR HAND RIGHT 3 OR MORE VIEWS, XR WRIST LEFT 3 OR MORE VIEWS HISTORY: Bilateral hand and wrist pain FINDINGS: 3 view examinations of both hands and both wrists are read without comparison. Joint spaces, mineralization, and alignment of the hands and wrists are normal and symmetric. There is no erosion or periosteal reaction. There is no ankylosis, subluxation, or fracture. IMPRESSION: 1. Normal radiographic examinations of the hands and wrists. Electronically signed by: Onel Elias M.D. Lucian Trinidad MD PhD IMG XR PROCEDURES F inal Result * XR Hand Left 3 or More Views (01/24/2025 10:49 AM CDT) Anatomical Region Laterality Modality Upper Extremities, Hand Left Computed Radiography 01/24/2025 11:0 8 AM CDT Impressions 01/24/2025 11:08 AM CDT 1. Normal radiographic examinations of the hands and wrists. Electronically signed by: Onel Elias M.D. Narrative 01/24/2025 11:08 AM CDT EXAMINATION: XR HAND LEFT 3 OR MORE VIEWS, XR WRIST RIGHT 3 OR MORE VIEWS, XR HAND RIGHT 3 OR MORE VIEWS, XR WRIST LEFT 3 OR MORE VIEWS HISTORY: Bilateral hand and wrist pain FINDINGS: 3 view examinations of both hands and both wrists are read without comparison. Joint spaces, mineralization, and alignment of the hands and wrists are normal and symmetric. There is no erosion or periosteal reaction. There is no ankylosis, subluxation, or fracture. Procedure Note Onel Elias MD - 01/24/2025 EXAMINATION: XR HAND LEFT 3 OR MORE VIEWS, XR WRIST RIGHT 3 OR MORE VIEWS, XR HAND RIGHT 3 OR MORE VIEWS, XR WRIST LEFT 3 OR MORE VIEWS HISTORY: Bilateral hand and wrist pain FINDINGS: 3 view examinations of both hands and both wrists are read without comparison. Joint spaces, mineralization, and alignment of the hands and wrists are normal and symmetric. There is no erosion or periosteal reaction. There is no ankylosis, subluxation, or fracture. IMPRESSION: 1. Normal radiographic examinations of the hands and wrists. Electronically signed by: Onel Elias M.D. Lucian Trinidad MD PhD IMG XR PROCEDURES F inal Result * XR Wrist Right 3 or More Views (01/24/2025 10:49 AM CDT) Anatomical Region Laterality Modality Upper Extremities, Wrist Right Compute d Radiography 01/24/2025 11:0 8 AM CDT Impressions 01/24/2025 11:08 AM CDT 1. Normal radiographic examinations of the hands and wrists. Electronically signed by: Onel Elias M.D. Narrative 01/24/2025 11:08 AM CDT EXAMINATION: XR HAND LEFT 3 OR MORE VIEWS, XR WRIST RIGHT 3 OR MORE VIEWS, XR HAND RIGHT 3 OR MORE VIEWS, XR WRIST LEFT 3 OR MORE VIEWS HISTORY: Bilateral hand and wrist pain FINDINGS: 3 view examinations of both hands and both wrists are read without comparison. Joint spaces, mineralization, and alignment of the hands and wrists are normal and symmetric. There is no erosion or periosteal reaction. There is no ankylosis, subluxation, or fracture. Procedure Note Onel Elias MD - 01/24/2025 EXAMINATION: XR HAND LEFT 3 OR MORE VIEWS, XR WRIST RIGHT 3 OR MORE VIEWS, XR HAND RIGHT 3 OR MORE VIEWS, XR WRIST LEFT 3 OR MORE VIEWS HISTORY: Bilateral hand and wrist pain FINDINGS: 3 view examinations of both hands and both wrists are read without comparison. Joint spaces, mineralization, and alignment of the hands and wrists are normal and symmetric. There is no erosion or periosteal reaction. There is no ankylosis, subluxation, or fracture. IMPRESSION: 1. Normal radiographic examinations of the hands and wrists. Electronically signed by: Onel Elias M.D. Lucian Trinidad MD PhD IM XR PROCEDURES F inal Result * XR Wrist Left 3 or More Views (01/24/2025 10:49 AM CDT) Anatomical Region Laterality Modality Upper Extremities, Wrist Left Compute d Radiography 01/24/2025 11:0 8 AM CDT Impressions 01/24/2025 11:08 AM CDT 1. Normal radiographic examinations of the hands and wrists. Electronically signed by: Onel Elias M.D. Narrative 01/24/2025 11:08 AM CDT EXAMINATION: XR HAND LEFT 3 OR MORE VIEWS, XR WRIST RIGHT 3 OR MORE VIEWS, XR HAND RIGHT 3 OR MORE VIEWS, XR WRIST LEFT 3 OR MORE VIEWS HISTORY: Bilateral hand and wrist pain FINDINGS: 3 view examinations of both hands and both wrists are read without comparison. Joint spaces, mineralization, and alignment of the hands and wrists are normal and symmetric. There is no erosion or periosteal reaction. There is no ankylosis, subluxation, or fracture. Procedure Note Onel Elias MD - 01/24/2025 EXAMINATION: XR HAND LEFT 3 OR MORE VIEWS, XR WRIST RIGHT 3 OR MORE VIEWS, XR HAND RIGHT 3 OR MORE VIEWS, XR WRIST LEFT 3 OR MORE VIEWS HISTORY: Bilateral hand and wrist pain FINDINGS: 3 view examinations of both hands and both wrists are read without comparison. Joint spaces, mineralization, and alignment of the hands and wrists are normal and symmetric. There is no erosion or periosteal reaction. There is no ankylosis, subluxation, or fracture. IMPRESSION: 1. Normal radiographic examinations of the hands and wrists. Electronically signed by: Onel Elias M.D. Lucian Trinidad MD PhD IMG XR PROCEDURES F inal Result * KATHIE ab eval w/reflex (01/24/2025 9:41 AM CDT) KATHIE ab Negative Negative Comment: Interpretive Data Positive Screens will be reflexed to specific testing for Antibodies against the following antigens: Ashly-1 Ab, COMPUTER NETWORK SPECIALIST Ab, Scl-70 Ab, Bradshaw Ab, SS-A/Ro Ab, and SS- B/La Ab. Further testing for dsDNA, Centromere, or Ribosomal P antibodies is suggested in patient with a positive screen and negative specific antibodies. Current interpretive data was last revised on 2023. Blood 01/24/2025 9:41 AM CDT 01/24/2025 10:43 AM CDT us Lucian Trinidad MD PhD LAB BLOOD ORDERABLE S Final Result Performing Organization Address City/[facility] Co de Phone Number [facility] [place] [address] * Anti-Neutrophilic Cytoplasmic Antibody (ANCA) with Reflex to MPO and PR3 Abs (01/24/2025 9:41 AM CDT) Pathologist [facility] ANCA Negative Blood 01/24/2025 9:41 AM CDT 01/24/2025 10:43 AM CDT us Lucian Trinidad MD PhD LAB BLOOD ORDERABLE S Final Result Performing Organization Address [facility] Co de Phone Number [facility] [place] [place] [address] * Neuromuscular Testing Blood (01/24/2025 12:00 AM CDT) Blood (Serum) 01/24/2025 01/25/2025 Narrative [facility] - 02/06/2025 4:56 PM CDT Please click on the PDF link to view the report containing this result us Lucian Trinidad MD PhD LAB PATHOLOGY ORDER DAVI Final Result Performing Organization Address City/[facility]/ZIP Co de Phone Number [facility] Room [address] [place] [id number] * eGFR (01/09/2025 12:30 PM CDT) [facility] eGFR >90 >=60 mL/min/1. 73 m2 Comment: Interpretive Data Reference Interval Normal >/= 90 mL/min/1.73m2 Mildly decreased* 60 - 89 mL/min/1.73m2 Mildly to moderately decreased 45 - 59 mL/min/1.73m2 Moderately to severely decreased 30 - 44 mL/min/1.73m2 Severely decreased 15 - 29 mL/min/1.73m2 Kidney Failure < 15 mL/min/1.73m2 *Relative to young adult level Estimated glomerular filtration rate is determined by the 2020 CKD-EPI equation recommended by the National Kidney Foundation (A Unifying Approach to GFR Estimation: Recommendations of the NKF-ASK Task Force on Reassessing the Inclusion of Race in Diagnosing Kidney Disease, JASN 2020). The CKD-EPI equation should not be used for patients with unstable renal function and has not been validated in children and those over 70. Current interpretive data was last reviewed 2021. Blood 01/09/2025 12:3 0 PM CDT 01/09/2025 1:21 PM CDT us Shirley CHUN LAB BLOOD ORDERABLES Flora dowd Result [facility] Department [place] [address] * (ABNORMAL) Differential, auto (01/09/2025 12:30 PM CDT) Pathologist [facility] Neutrophil abs 10.98(H) 1.50 - 6.50 K/cumm Imm gran abs 0.13(H) 0.00 - 0.10 K/cumm [facility] Lymphocyte abs 1.66 0.80 - 3.30 K/cumm [facility] Monocyte abs 1.29(H) 0.20 - 0.80 K/cumm [facility] Eosinophil abs 0.05 0.00 - 0.50 K/cumm [facility] Basophil abs 0.06 0.00 - 0.10 K/cumm [facility] Neutrophil pct 77.5 % [facility] Comment: Interpretive Data Percent cell count reference ranges are not reported, since discordance with absolute values may lead to misinterpretation of CBC data. Current Interpretive Data was last revised on 2017. Imm gran pct 0.9 % [facility] Comment: Interpretive Data Percent cell count reference ranges are not reported, since discordance with absolute values may lead to misinterpretation of CBC data. Current Interpretive Data was last revised on 2017. Lymphocyte pct 11.7 % [facility] Comment: Interpretive Data Percent cell count reference ranges are not reported, since discordance with absolute values may lead to misinterpretation of CBC data. Current Interpretive Data was last revised on 2017. Monocyte pct 9.1 % [facility] Comment: Interpretive Data Percent cell count reference ranges are not reported, since discordance with absolute values may lead to misinterpretation of CBC data. Current Interpretive Data was last revised on 2017. Eosinophil pct 0.4 % [facility] Comment: Interpretive Data Percent cell count reference ranges are not reported, since discordance with absolute values may lead to misinterpretation of CBC data. Current Interpretive Data was last revised on 2017. Basophil pct 0.4 % [facility] Comment: Interpretive Data Percent cell count reference ranges are not reported, since discordance with absolute values may lead to misinterpretation of CBC data. Current Interpretive Data was last revised on 2017. Blood 01/09/2025 12:3 0 PM CDT 01/09/2025 1:18 PM CDT us Shirley CHUN LAB BLOOD ORDERABLES Flora dowd Result [facility] Department [place] [address] * (ABNORMAL) CBC with auto differential (01/09/2025 12:30 PM CDT) WBC 14.17(H) 3.80 - 9.90 K/cumm Hgb 12.2 11.9 - 15.5 g/dL [facility] Hct 38.2 35.6 - 45.5 % [facility] Plt 417(H) 150 - 400 K/cumm [facility] MPV 10.2 9.1 - 12.3 fL [facility] RBC 4.21 3.90 - 5.20 M/cumm [facility] MCV 90.7 81.3 - 96.4 fL [facility] MCH 29.0 27.1 - 33.3 pg [facility] MCHC 31.9(L) 32.3 - 35.7 g/dL [facility] RDW CV 16.4(H) 11.1 - 14.9 % [facility] RDW SD 54.8(H) 35.7 - 48.1 fL [facility] NRBC abs 0.00 0.00 - 0.01 K/cumm [facility] Blood 01/09/2025 12:3 0 PM CDT 01/09/2025 1:18 PM CDT Shirley CHUN LAB BLOOD ORDERABLES Flora l Result Performing Organization Address [facility] Co de Phone Number [facility] Department [place] [address] * Albumin Creatinine Ratio, Urine (01/09/2025 12:30 PM CDT) Albumin Ur 37.8 mg/L Comment: Interpretive Data No reference range established. Current interpretive data was last revised 2018. Creatinine Ur 353.8 mg/dL [facility] Comment: Interpretive Data No reference range established. Current interpretive data was last revised 2018. Albumin Creatinine Ratio, Ur 11 1 - 29 mg/g [facility] Urine 01/09/2025 12:3 0 PM CDT 01/09/2025 1:18 PM CDT Shirley CHUN LAB URINE ORDERABLES Flora l Result Performing Organization Address City/[facility]/ZIP Co de Phone Number [facility] [place] [address] * Vitamin D 25 hydroxy (01/09/2025 12:30 PM CDT) Pathologist [facility] Vitamin D 25-OH 38 30 - 80 ng/mL Blood 01/09/2025 12:3 0 PM CDT 01/09/2025 1:18 PM CDT Shirley CHUN LAB BLOOD ORDERABLES Flora l Result Performing Organization Address City/[facility] Co de Phone Number [facility] [place] [place] [address] * TSH (01/09/2025 12:30 PM CDT) [facility] Thyroid Stimulating Hormone 1.92 0.30 - 4.20 mcIUnit/mL Blood 01/09/2025 12:3 0 PM CDT 01/09/2025 1:18 PM CDT Result [facility] Shirley CHUN LAB BLOOD ORDERABLES Flora l Result Performing Organization Address [facility] Co de Phone Number [facility] [place] [place] [address] * Ferritin (01/09/2025 12:30 PM CDT) [facility] Ferritin 42 13 - 150 ng/mL Blood 01/09/2025 12:3 0 PM CDT 01/09/2025 1:18 PM CDT Iqra Jensen MD LAB BLOOD ORDERABLES Final Resul t Performing Organization Address [facility] Co de Phone Number [facility] [place] [address] * Vitamin B12 (01/09/2025 12:30 PM CDT) Pathologist [facility] Vitamin B12 415 230 - 1,250 pg/mL Blood 01/09/2025 12:3 0 PM CDT 01/09/2025 1:18 PM CDT us Shirley CHUN LAB BLOOD ORDERABLES Flora dowd Result [facility] Department [place] [address] * (ABNORMAL) Lipid panel (01/09/2025 12:30 PM CDT) Cholesterol 260(H) 30 - 199 mg/dL Comment: Interpretive Data [...] Data was last revised on 2018. Triglycerides 334(H) <=149 mg/dL [facility] Comment: Interpretive Data Ages < or [...] Data was last revised on 2018. HDL 75 >=40 mg/dL [facility] Comment: Interpretive Data Ages < or [...] was last revised on 2018. LDL, calculated 127 <=129 mg/dL [facility] Comment: Interpretive Data Ages < or = 19 years Acceptable: <110 mg/dL Borderline high: 110-129 mg/dL High: >or= 130 mg/dL Ages > or = 20 years Optimal: <100 mg/dL Near optimal: 100-129 mg/dL Borderline high: 130-159 mg/dL High: >160 mg/dL Calculated using the Sundeep LDL-C estimating equation. This equation was implemented on 2024. Prior to this date LDL-C was estimated using the Friedewald equation. Literature References: 1. Expert Panel on Integrated Guidelines for Cardiovascular Health and Risk Reduction in Children and Adolescents. Pediatrics 2011;128:S213 2. NCEP Expert Panel. Circulation 2004;110:227 3. Sundeep Jara et al. PHILIP Cardiol. 2019December 01;5(5):540-548. doi: 10.1001/jamacardio.2020.0013 Current Interpretive Data was last revised on 2024. Non-HDL Cholesterol 185 mg/dL [facility] Comment: Interpretive Data [...] was last revised on 2018. Chol/HDL ratio [address] [facility] Blood 01/09/2025 12:3 0 PM CDT 01/09/2025 1:18 PM CDT us Shirley CHUN LAB BLOOD ORDERABLES Flora dowd Result [facility] Department [place] [address] * (ABNORMAL) Comprehensive metabolic panel (01/09/2025 12:30 PM CDT) Sodium 139 135 - 145 mmol/L Potassium, pl 4.4 3.3 - 4.9 mmol/L [facility] Chloride 99 97 - 110 mmol/L [facility] CO2 27 22 - 32 mmol/L [facility] Anion gap 13 2 - 15 mmol/L [facility] BUN 22 6 - 25 mg/dL [facility] Creatinine 0.74 0.60 - 1.10 mg/dL [facility] Glucose 314(H) 70 - 199 mg/dL [facility] Comment: Interpretive Data Fasting glucose >/= 126 mg/dl is diagnostic for diabetes. Fasting is defined as no caloric intake for at least 8 hours. Fasting glucose between 100 mg/dl to 125 mg/dl is diagnostic of prediabetes. In a patient with classic symptoms of hyperglycemia or hyperglycemic crisis, a random glucose >/= 200 mg/dl is diagnostic for diabetes. In the absence of unequivocal hyperglycemia, results should be confirmed by repeat testing. The classification and Diagnosis of Diabetes Diabetes Care 2021; 46: S19-S40. Current interpretive data was last revised 2022. Calcium 9.2 8.5 - 10.3 mg/dL [facility] Bilirubin, total 0.3 0.1 - 1.2 mg/dL [facility] Protein, pl 6.7 6.5 - 8.5 g/dL [facility] Albumin 4.0 3.5 - 5.0 g/dL [facility] Alk phos 54 40 - 130 Units/L [facility] ALT 69(H) 7 - 45 Units/L [facility] AST 25 10 - 45 Units/L [facility] Blood 01/09/2025 12:3 0 PM CDT 01/09/2025 1:18 PM CDT Shirley CHUN LAB BLOOD ORDERABLES Flora dowd Result [facility] Department [place] [address] * Screening Mammogram Bilateral W Vincenzo (01/09/2025 12:12 PM CDT) Anatomical Region Laterality Modality Breast Bilateral Mammography Impressions 01/10/2025 1:19 PM CDT Bilateral No evidence of malignancy in either breast. OVERALL BI-RADS FINAL ASSESSMENT: 1 - Negative RECOMMENDATION: Recommend bilateral annual screening mammography. Narrative 01/10/2025 1:19 PM CDT EXAMINATION: Screening Mammogram Bilateral W Vincenzo: 01/09/2025 COMPARISON: Relevant prior studies available at the time of interpretation were reviewed. TECHNIQUE: Mammography was performed with 2D and digital breast tomosynthesis (DBT) images. CAD was utilized. BREAST PARENCHYMAL COMPOSITION: There are scattered areas of fibroglandular density. FINDINGS: Bilateral There is no suspicious mass, calcification, or architectural distortion in either breast. us Self Screening Mammogram IMG MAMMO PROCEDURES Fi nal Result * (ABNORMAL) POCT hemoglobin A1c (01/09/2025 10:44 AM CDT) Hemoglobin A1C, POC 8.9(A) 4.0 - 5.6 % Blood 01/09/2025 10:4 4 AM CDT us Shirley CHUN POINT OF CARE TEST ORDERA BLES Final Result * POCT glucose (01/09/2025 10:43 AM CDT) Glucose Blood, POC 164 Normal Fasting 70 - 100, Random <200 mg/dL Blood 01/09/2025 10:4 3 AM CDT us Shirley CHUN POINT OF CARE TEST ORDERA BLES Final Result * TRANSTHORACIC ECHO (TTE) COMPLETE W DOPPLER/CF WO CONTRAST (12/23/2024 7:43 AM CDT) Estimated EF 55-60 % CONS SCIMAGE Anatomical Region Laterality Modality Ultrasound 12/23/2024 7:09 AM CDT Narrative 12/23/2024 9:46 AM CDT [address] [place] [address] Echocardiogram Report Patient Name: WALT HUITRON : 1975 Study Date: 12/23/2024 7:09:04 AM Gender: F Tech: MANAGER CONTRACT Location: Echo Lab 1 Ref Provider: CANELO DOAN Height(Cm): 168 BSA: 2.6 Weight(Kg): 145.1 Quality: Adequate Order Provider: CANELO DOAN PROCEDURES: Echocardiographic Report: Transthoracic echocardiogram with complete 2D, M-Mode, and color Doppler examination. INDICATIONS: R09.02 Hypoxemia. MEASUREMENTS: 2D/MM Value Range Doppler Value Range EF Teich MM 59.0 % [ 54.0 - 74.0 ] JAMISON Vmax 3.12 cm2 Estimated EF 55-60 % AV Mean PG 3 mmHg LVIDd MM 5.20 cm [ 3.80 - 5.20 ] AV Peak Alex 1.15 m/s [ 1.00 - 1.70 ] LVIDs MM 3.50 cm [ 2.20 - 3.50 ] AV VTI 25.18 cm LVPWd MM 1.10 cm [ 0.60 - 0.90 ] LVOT Diam 2.33 cm IVSd MM 1.50 cm [ 0.60 - 0.90 ] LVOT Peak Alex 0.84 m/s [ 0.70 - 1.10 ] LA Dimension MM 3.83 cm [ 2.70 - 3.80 ] LVOT VTI 16.85 cm AoR Diam MM 2.97 cm [ 2.70 - 3.70 ] MV E Peak Alex 0.94 m/s [ 0.60 - 1.30 ] ACS MM 1.86 cm MV A Peak Alex 0.86 m/s [ 1.00 - 1.20 ] MV Mean PG 2 mmHg MV PHT 37 msec [ 20 - 100 ] MVA 6.00 MV Decel Time 103 msec [ 104 - 258 ] PV Peak Alex 0.89 m/s [ 0.40 - 0.80 ] TR Peak Alex 2.14 m/s [ 1.00 - 2.80 ] TR Peak PG 18 mmHg RVSP 21.00 mmHg [ 10.00 - 36.00 ] E` 0.10 m/s E/E` 9.14 [ <= 10.00 ] PA Pressure 21.00 mmHg [ 10.00 - 36.00 ] 2D/MM Value Range Doppler Value Range - FINDINGS: Atrial Septum: Normal atrial septum. Left Ventricle: Normal left ventricular systolic function with no focal wall motion abnormalities. Normal left ventricular size. Normal left ventricular wall thickness. Normal left ventricular diastolic function. Ejection Fraction is estimated to be 55-60 %. Left Atrium: The left atrium is normal in size. Right Ventricle: Normal right ventricular size. Normal right ventricular systolic function. Right Atrium: The right atrium is normal in size. Aortic Valve: Normal structure of the aortic valve. Mitral Valve: Normal structure of the mitral valve. Pulmonic Valve: Normal structure of the pulmonic valve. Tricuspid Valve: Normal right ventricular systolic pressure. Estimated peak RVSP is 25-30 mmHg. Mild tricuspid regurgitation. Pericardium: Normal pericardium with no significant pericardial effusion. Aorta: Normal aortic root. Sinus of Valsalva is normal. Aortic arch is normal. Descending aorta is normal. IVC: Normal size and normal respiratory collapse consistent with normal right atrial pressure (<5 mmHg). Pulmonary Artery: Normal pulmonary artery size. CONCLUSIONS: Left ventricle was not well seen but probably Normal left ventricular systolic function with no clear focal wall motion abnormalities. Normal left ventricular size. Normal left ventricular wall thickness. Normal left ventricular diastolic function. Ejection Fraction is estimated to be 55-60 %. Normal right ventricular systolic pressure. Estimated peak RVSP is 25-30 mmHg. Mild tricuspid regurgitation. Technically difficult study with suboptimal views. Electronically Signed By: German Weathers MD 12/23/2024 9:45:42 AM CDT Procedure Note German Weathers MD - 12/23/[address] [place] [address] Echocardiogram Report Patient Name: WALT HUITRON : 1975 Study Date: 12/23/2024 7:09:04 AM Gender: F Tech: MANAGER CONTRACT Location: Echo Lab 1 Ref Provider: CANELO DOAN Height(Cm): 168 BSA: 2.6 Weight(Kg): 145.1 Quality: Adequate Order Provider: CANELO DOAN PROCEDURES: Echocardiographic Report: Transthoracic echocardiogram with complete 2D, M-Mode, and color Dopplerexamination. INDICATIONS: R09.02 Hypoxemia. MEASUREMENTS: 2D/MM Value Range Doppler ValueRange EF Teich MM 59.0 % [ 54.0 - 74.0 ] JAMISON Vmax 3.12cm2 Estimated EF 55-60 % AV Mean PG 3 mmHg LVIDd MM 5.20 cm [ 3.80 - 5.20 ] AV Peak Alex 1.15 m/s[ 1.00 - 1.70 ] LVIDs MM 3.50 cm [ 2.20 - 3.50 ] AV VTI 25.18cm LVPWd MM 1.10 cm [ 0.60 - 0.90 ] LVOT Diam 2.33cm IVSd MM 1.50 cm [ 0.60 - 0.90 ] LVOT Peak Alex 0.84 m/s[ 0.70 - 1.10 ] LA Dimension MM 3.83 cm [ 2.70 - 3.80 ] LVOT VTI 16.85cm AoR Diam MM 2.97 cm [ 2.70 - 3.70 ] MV E Peak Alex 0.94 m/s[ 0.60 - 1.30 ] ACS MM 1.86 cm MV A Peak Alex 0.86 m/s[ 1.00 - 1.20 ] MV Mean PG 2 mmHg MV PHT 37 msec [ 20 - 100 ] MVA 6.00 MV Decel Time 103 msec [ 104 - 258 ] PV Peak Alex 0.89 m/s [ 0.40 - 0.80 ] TR Peak Alex 2.14 m/s [ 1.00 - 2.80 ] TR Peak PG 18 mmHg RVSP 21.00 mmHg [ 10.00 - 36.00 ] E` 0.10 m/s E/E` 9.14 [ <= 10.00 ] PA Pressure 21.00 mmHg [ 10.00 - 36.00 ] 2D/MM Value Range Doppler ValueRange - FINDINGS: Atrial Septum: Normal atrial septum. Left Ventricle: Normal left ventricular systolic function with no focal wall motionabnormalities. Normal left ventricular size. Normal left ventricular wall thickness. Normal leftventricular diastolic function. Ejection Fraction is estimated to be 55-60 %. Left Atrium: The left atrium is normal in size. Right Ventricle: Normal right ventricular size. Normal right ventricular systolicfunction. Right Atrium: The right atrium is normal in size. Aortic Valve: Normal structure of the aortic valve. Mitral Valve: Normal structure of the mitral valve. Pulmonic Valve: Normal structure of the pulmonic valve. Tricuspid Valve: Normal right ventricular systolic pressure. Estimated peak RVSP is 25-30mmHg. Mild tricuspid regurgitation. Pericardium: Normal pericardium with no significant pericardial effusion. Aorta: Normal aortic root. Sinus of Valsalva is normal. Aortic arch is normal.Descending aorta is normal. IVC: Normal size and normal respiratory collapse consistent with normal rightatrial pressure (<5 mmHg). Pulmonary Artery: Normal pulmonary artery size. CONCLUSIONS: Left ventricle was not well seen but probably Normal left ventricularsystolic function with no clear focal wall motion abnormalities. Normal left ventricularsize. Normal left ventricular wall thickness. Normal left ventricular diastolic function.Ejection Fraction is estimated to be 55-60 %. Normal right ventricular systolic pressure. Estimated peak RVSP is 25-30mmHg. Mild tricuspid regurgitation. Technically difficult study with suboptimal views. Electronically Signed By: German Weathers MD 12/23/2024 9:45:42 AM CDT us Canelo Lucianjose angel Doan DO CV ECHO PROCEDURES Final Result * CT Body Outside Reference (12/14/2024 10:10 AM CDT) Narrative VIVIANA - 01/02/2025 11:11 AM CDT This order has been auto-finalized and does not contain a result. us Not In File Miscellaneous IMG CT PROCEDURES Flora l Result [id number] * Diabetic Eye Exam (11/10/2022) us Generic External Data Provider HEALTH MAINTENANC E Final Result * COLONOSCOPY (04/02/2022 9:28 AM CDT) Anatomical Region Laterality Modality Other Narrative Procedure Note Ad Camacho MD - 04/02/2022 9:28 AM CDT [facility] Patient Name: Walt Huitron Procedure Date: 04/02/2022 9:28 AM Date of : 1975 Admit Type: Outpatient Age: 46 Gender: Female Attending MD: Ad Camacho M.D. Room: [facility] ENDOSCOPY ROOM 2 Note Status: [...] scope was passed under direct vision. TheColonoscope [id number] was introduced through the anus and advanced [...] 9:28 AM Procedure Code(s): --- Professional --- 13649, Colonoscopy, flexible; with biopsy, single or multiple Diagnosis Code(s): --- Professional --- Z12.11, Encounter for screening for malignant neoplasm of colon D12.3, Benign neoplasm of transverse colon (hepatic flexure orsplenic flexure) D12.4, Benign neoplasm of descending colon D12.8, Benign neoplasm of rectum CPT copyright 2020 [employer]. All rights reserved. The codes documented in this report are preliminary and upon manager integrity reviewmay be revised to meet current compliance requirements. Recognized by the [employer] for promoting quality in endoscopy Ad Camacho MD ENDOSCOPY PROCEDURES Final Resul t * Diabetic Foot Exam (03/26/2021) Adamariss Art Staley MA - 03/26/2021 In care everywhere Historical Provider HEALTH MAINTENANCE Final Result from Last 3 Months or Most Recently Relevant to Health Maintenance Insurance [employer] [facility] Advance Directives For more information, please contact: [phone] * Full Code (Latest Code Status on File) Date Activated Date Inactivated Comments 04/02/2022 9:27 AM 04/02/2022 4:47 PM * Full Code Date Activated Date Inactivated Comments 04/02/2022 9:27 AM 04/02/2022 9:27 AM Care Teams Fabricator Artificial Breast Relationship Specialty [place] [address] [facility] [address] [place] [address] PCP - General Internal Medicine 04/06/24 Ann Serrano MD Referring Physician Endocrinology Diabetes & Metabolism 06/08/20
--- OUTSIDE RECORDS SUMMARY | 2025-02-17 03:08 | XMS_ITS | Continuity of Care Document ---
Author Organization [employer] Address [address] [facility] [address] [place] [address] Insurance Providers Payer Plan Claims Address Claims Phone Policy Number Group Number Relation Employer Guarantor Name Guarantor Guarantor Address Guarantor Phone RX MEDIMP ACT RX MEDIM PACT [employer] tel:[phone] [id number] Self Camila Huitron 1975 [address] [place] [address] RX [employer]A PLANS (INTER NAL) RX [employer] PLANS (INTE RNAL) [id number] Self Camila Huitron 1975 [address] [place], [place] [id number] [facility] [address], [place] [address] tel:[phone] Self Camila Huitron 1975 [facility] [place] [address] Problems Condition ICD9 code ICD10 code SNOMED [...]
--- OUTSIDE RECORDS SUMMARY | 2025-02-17 03:08 | XMS_ITS | Clinical Summary ---
Author Organization [facility] Address [address] [place] [address] Phone Care Team Providers Care Yeast Washer Name Role Phone Masoud Hayes MD Primary Care Provider [phone] Allergies Active Allergy Reactions Criticality Noted Date [...] mouth daily. 30 Tablet 08/13/2022 2:47 PM INFORMATION TECHNOLOGY TEACHER 3 Active amLODIPine (NORVASC) 2.5 mg tablet Take 1 Tablet (2.5 mg) by mouth daily in the morning. 90 Tablet 05/29/2023 5:55 PM CDT 3 Active cyclobenzaprine (FLEXERIL) 5 mg Tablet TAKE 1-2 TABLETS BY MOUTH NIGHTLY TO REDUCE MUSCLE CRAMPS 60 Tablet 3 07/10/2023 3:38 PM INFORMATION TECHNOLOGY TEACHER 3 Active hydroxychloroqu ine (PLAQUENIL) 200 mg tablet TAKE 2 TABLETS BY MOUTH ONCE DAILY 60 Tablet 3 07/10/2023 3:38 PM INFORMATION TECHNOLOGY TEACHER 3 Active mycophenolate mofetil (CELLCEPT) 500 mg tablet TAKE 3 TABLETS BY MOUTH TWICE DAILY 180 Tablet 4 07/10/2023 3:38 PM INFORMATION TECHNOLOGY TEACHER 3 Active insulin glargine (LANTUS) 100 unit/mL [...] for pain 30 Tablet 07/13/2024 12:19 PM INFORMATION TECHNOLOGY TEACHER 4 Active methylPREDNISol one (Medrol, Marvel,) 4 [...] 3 Active fluticasone propionate (FLONASE) 50 mcg/spray [place], Suspension nasal inhaler Administer 2 Sprays in each nostril 1 time daily as needed. 3 Active folic acid (FOLVITE) 1 mg tablet 4 Active gabapentin (NEURONTIN) 300 mg capsule 4 Active glucagon (BAQSIMI) 3 mg/spray [place], Non-Aerosol Administer 1 [place] in each nostril. 4 Active insulin glargine-yfgn [...] Tablet (10 mg) by mouth from the to the 10th of the month. 30 Tablet 2 05/25/2024 1:28 PM CDT 4 Active predniSONE (DELTASONE) 10 mg tablet Take 4 Tablets (40 mg) by mouth daily. 120 Tablet 3 09/11/2024 3:51 PM INFORMATION TECHNOLOGY TEACHER 4 Active venlafaxine (EFFEXOR XR) 150 mg Extended Release 24 hour capsule Take 1 capsule (150 mg total) by mouth daily 30 Capsule 07/13/2024 12:19 PM INFORMATION TECHNOLOGY TEACHER 4 Active tirzepatide (Mounjaro) 10 mg/0.5 mL Pen Injector Inject 10 mg under the skin every 7 days 2 mL 3 09/29/2024 4:41 PM INFORMATION TECHNOLOGY TEACHER 4 Active isosorbide dinitrate (ISORDIL) 5 mg [...] Patch 12/09/2024 12:37 PM CDT 5 Active metoprolol tartrate (LOPRESSOR) 25 mg tablet Take 0.5 Tablets (12.5 mg) by mouth 2 times daily. 30 Tablet 12/18/2024 3:18 PM CDT 5 Active dicyclomine (BENTYL) 20 mg tablet Take 1 Tablet (20 mg) by mouth 3 times daily as needed for abdominal pain. 30 Tablet 12/20/2024 4:02 PM CDT 5 Active famotidine (PEPCID) 20 mg tablet Take 1 Tablet (20 mg) by mouth daily. 30 Tablet 12/20/2024 4:02 PM CDT 5 Active ondansetron (ZOFRAN ODT) 4 mg Tablet, Rapid Dissolve Dissolve 1 Tablet (4 mg) by mouth every 8 hours as needed for nausea and vomiting. 14 Tablet 12/20/2024 4:02 PM CDT 5 Active cyclobenzaprine (FLEXERIL) 10 mg tablet 4 Active albuterol sulfate HFA 90 mcg/actuation aerosol inhaler Take 2 Puffs by inhalation. 5 09/26/19 26 Active blood sugar diagnostic Strip Use to check blood sugar as directed up to 4 times dialy. 5 Active Insulin [place], Disposable, 32 gauge x Needle Use to inject insulin up as directed to 5 times daily. 4 Active lancets 33 gauge Use to check blood sugar as directed up to 4 times daily. 4 Active Blood-Glucose Sensor ([place] G7 Sensor) Device Use for continuous glucose monitor. Change sensor every 10 days. 4 Active methylPREDNISol one (Medrol, Marvel,) 4 mg Tablets, Dose Pack TAKE DIRECTED ON PACKAGE. 21 Tablet 12/29/2024 2:23 PM CDT 5 Active tirzepatide (Mounjaro) 15 mg/0.5 mL Pen Injector Inject 0.5 mL (15 mg total) under the skin every 7 days 6 mL 3 5 Active buprenorphine HCL (Belbuca) 150 mcg Film Apply 1 each (150 mcg total) to cheek 2 (two) times a day 60 Each 5 Active zolpidem (AMBIEN) 10 mg tablet Take 1 Tablet (10 mg) by mouth nightly as needed for sleep study. 1 Tablet 02/13/2025 1:13 PM CDT 5 Active Active Problems Patient Care Coordination No te Formatting of this note migh t be different from the original. Pharmacist'S Aide: Dr. Peraza Problem Noted Date Diagnosed Date Dyspnea 03/19/2012 Overview (03/22/2012): 02/11 EKG: NSR at 92 02/11 echo (TDS): EF 55%, trace MR, PA 24 Edema 03/19/2012 Hyperlipidemia 03/19/2012 Overview (03/19/2012): 02/11 cholesterol 235 HDL 51 LDL 153 triglyceride 155 Diabetes mellitus 03/19/2012 Overview (03/19/2012): 02/11 hemoglobin A1c 8.2 HTN (hypertension) Encounters Date Type Department Care Team Description 02/14/2025 External Device Data ST[facility] ABSTRACTION Provider, Abstract 01/24/2025 External Device Data [facility] ABSTRACTION Provider, Abstract 01/18/2025 External Device Data [facility] ABSTRACTION Provider, Abstract 12/29/2024 11:30 AM CDT Office Visit [facility] LOOPING INSPECTOR Medical [facility] [address] [place] [address] Kendrick Teague MD Menopausal symptoms (Primary Dx) 12/22/2024 External Device Data STL ABSTRACTION Provider, Abstract 12/20/2024 External Device Data ST[facility] ABSTRACTION Provider, Abstract [...] on file Legal Sex Female 6:10 AM INFORMATION TECHNOLOGY TEACHER Gender Identity Not on file Sexual Orientation Not on file 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 on file Not on file Not on file Last Filed Vital Signs Vital Sign Reading Time Taken Comments Blood Pressure 146/88 12/29/2024 11:30 AM CDT Pulse 82 03/22/2012 2:23 PM CDT Temperature - - Respiratory Rate 18 03/22/2012 2:23 PM CDT Oxygen Saturation 97% 03/22/2012 1:51 PM CDT Inhaled Oxygen Concentration - - Weight 145.6 kg (321 lb) 12/29/2024 11:30 AM CDT Height 167.6 cm (5' 6) 12/29/2024 11:30 AM CDT Body Mass Index 51.81 12/29/2024 11:30 AM CDT Plan of Treatment Health Maintenance Due Date Last Done Comments DIABETES ANNUAL RETINAL EXAM 1994 DIABETES MICROALBUMIN ANNUAL SCREEN 1994 LDL CHOLESTEROL ANNUAL 1994 HEPATITIS B VACCINES (1 of 3 - 19+ 3-dose series) 1995 COVID-19 Vaccine (2 - Jansse n risk series) 11/02/2020 10/05/2020 FIT-DNA Q 3 years 2021 FIT/FOBT Q 1 year 2021 Flex Sig/CT Colonography Q 5 years 2021 BREAST CANCER SCREENING 12/28/2024 12/29/19 24, 12/29/2023, 02/25/2023, Additional history exists DIABETES HBA1C Q 6 MONTHS 02/11/20252024, 07/13/2024, 12/29/2023 INFLUENZA VACCINE (#1) 2025 , 05/23/2022, 05/16/2020, Additional history exists DIABETES ANNUAL FOOT EXAM 04/06/2025 04/06/2024 PAP SMEAR 05/17/2027 05/17/2024 DTAP/TDAP/TD VACCINES (3 - T d or Tdap) 07/05/2028 07/05/2018, 10/04/2007 CERVICAL CANCER SCREENING 05/17/2029 HPV/Cotest (21-29) 05/17/2029 [...] PAP (05/17/2024 4:26 PM CDT) COMMENT (PAP): [facility] [place] Comment: This order for age-based cervical cancer and STI screening follows ACOG guidelines(PB 168, 140, VPH689). See individual assays for performing site location. CLINICAL INFORMATION [facility] [place] Comment:None given LAST MENSTRUAL PERIOD [facility] [place] Comment:10/02/2023 PREV PAP: [facility] [place] Comment:NONE GIVEN PREV BX: [facility] [place] Comment:NONE GIVEN SOURCE [facility] [place] Comment:Endocervix ADEQUACY: [facility] [place] Comment: Satisfactory for evaluation. Endocervical/transformation zone component absent. PAP INTERP [facility] [place] Comment: Cytology Results: Negative for intraepithelial lesion or malignancy. COMMENT (PAP TEST) [facility] [place] Comment: This Pap test has been evaluated with computer assisted technology. NAIL TECHNICIAN: [facility] [place] Comment: MEF, CT(ASCP) CT screening location: [place] [address] [place] [address] EXPLANATORY NOTE [facility] [place] Comment: EXPLANATORY NOTE: The Pap is a [...] information. HPV E6/E7 Not Detected Not Detected [facility] [place] Comment: Methodology: Vessel Slag Worker-Mediated Amplification This assay detects E6/E7 viral messenger RNA (mRNA) from 14 high-risk HPV types (16,18,31,33,35,39,45,51,52,56,58,59,66,68). Cervical sources are required for HPV testing. If a vaginal source from a patient who has had a total hysterectomy with removal of cervix was submitted, please contact the testing laboratory for alternative testing options. For additional information, please refer to http://education.DNA Guide/faq/IKL113k1 (This link if provided for information/ educational purposes only.) Test Performed at: [email or web address] [id number] [place] [address] Torin GUZMAN Genital SWAB OF ENDOCERVIX / Unknown 05/17/2024 4:26 PM CDT 05/18/2024 3:48 AM CDT us Kendrick Teague MD PATHOLOGY/CYTOLOGY ORDERABLE S Final Result [facility] [phone] [facility] [address] [place] [address] from Last 3 Months or Most Recently Relevant to Health Maintenance Insurance [employer] Member Subscriber Plan / Payer (Ef fective 2023-Present) Name:Walt Huitron Relation to Subscriber:Self Name:Walt Huitron Subscriber ID:Not on file Payer ID:Not on file Group ID:[id number] Type:RX Commercial Address: [address] [employer] (INTERNAL) [facility] Care Teams Yeast Washer Relationship Specialty Start Date End Date Masoud Hayes MD PCP - General Internal Medicine 03/08/12
--- OUTSIDE RECORDS SUMMARY | 2025-02-17 03:08 | XMS_ITS | Referral Summary ---
Author Organization [facility] A Address [address] [place] [address] Care Team Providers Care Auger Press Operator Name Role Phone Ann Serrano MD Unavailable [phone] Lynn Rodriguez MD Primary Care Provider Encounters Date Type Department Care Team Description 02/16/2025 9:00 AM CDT Therapy [facility] Rehabilitation Services at [address] [id number] Adelina Little, PT Lymphedema (Primary Dx); Decreased functional mobility and endurance 02/15/2025 9:15 AM CDT Office Visit [facility] Primary Care at [place] [phone] [address] Lynn Rodriguez MD Uncontrolled type 2 diabetes mellitus with hyperglycemia (HCC) (Primary Dx); Benign hypertension; Mixed hyperlipidemia; Morbid obesity with BMI of 50.0-59.9, adult (HCC); Moderate persistent asthma without complication; Class 3 severe obesity due to excess calories with serious comorbidity and body mass index (BMI) of 50.0 to 59.9 in adult; [employer] (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); Chronic hypoxic respiratory failure (HCC); Lymphedema; Sacroiliitis; Radiculopathy, lumbosacral region; Spinal stenosis of lumbar region with neurogenic claudication; Autoimmune disease 02/14/2025 12:59 PM CDT - 02/14/2025 11:59 PM CDT Hospital Encounter [facility] [address] [place] [address] Adam Corrales MD Radiculopathy, lumbosacral region [M54.17] (Primary Dx); Spinal stenosis of lumbar region with neurogenic claudication Discharge Disposition: Discharge to home or self care 02/09/2025 Orders Only [facility] Sleep Medicine at [address] [address], [place] [address] Iqra Jensen MD JEERMY (obstructive sleep apnea) (Primary Dx) 02/09/2025 9:00 AM CDT Therapy [facility] at [address] [address] Adelina Little, PT Lymphedema (Primary Dx); Decreased functional mobility and endurance 02/07/2025 Plan of Care Documentation [facility] at [address] [address] 02/07/2025 12:00 PM CDT Therapy [facility] at [address] [address] Ele Vazquez, PT Lymphedema (Primary Dx); Decreased functional mobility and endurance 02/06/2025 9:30 AM CDT - 02/06/2025 11:59 PM CDT Hospital Encounter [facility] [address] [place] [address] Amada Baldwin NP Spinal stenosis of lumbar region with neurogenic claudication (Primary Dx); Radiculopathy, lumbosacral region; Sacroiliitis; Chronic right-sided low back pain with right-sided sciatica; Uncontrolled type 2 diabetes mellitus with hyperglycemia (HCC); Morbid obesity with BMI of 50.0-59.9, adult (HCC); Benign hypertension Discharge Disposition: Discharge to home or self care 02/02/2025 3:02 PM CDT - 02/02/2025 5:37 PM CDT Emergency [facility] Emergency Department [address] [place] [address] Sumit Yu MD Fall, initial encounter (Primary Dx) Discharge Disposition: Discharge to home or self care 02/02/2025 Telephone [facility] at [address] [place] [address] Adelina Little, PT Appointment 02/02/2025 2:04 PM CDT - 02/02/2025 11:59 PM CDT Hospital Encounter [facility] Radiology [address] [place] [address] Adam Corrales MD Chronic low back pain with sciatica, sciatica laterality unspecified, unspecified back pain laterality Discharge Disposition: Discharge to home or self care 01/30/2025 12:00 PM CDT Therapy [facility] at [address] [address] Tiffanie Cantu, FLACA Lymphedema (Primary Dx); Decreased functional mobility and endurance 01/24/2025 Results Follow-Up [facility] Rheumatology [address] [place] [address] Advanced Medicine 5th [place] [address] Lucian Trinidad MD PhD XR Wrist Right 3 or More Views 01/24/2025 9:49 AM CDT - 01/24/2025 11:59 PM CDT Hospital Encounter [facility] [address] [place] [address] Lucian Trinidad MD PhD Cutaneous vasculitis Discharge Disposition: Discharge to home or self care 01/24/2025 10:15 AM CDT Lab [facility]) [address] [place] [phone] 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 9:00 AM CDT Office Visit [facility] Rheumatology [address] [place] [address] Medicine 5th [place] [address] [place] [address] Lucian Trinidad MD PhD Cutaneous vasculitis 01/23/2025 Telephone [facility] Gastroenterology at [address] [place] [address] Graciela Shultz 01/23/2025 12:00 PM CDT Therapy [facility] at [address] [address] Tiffanie Cantu, PT Lymphedema (Primary Dx); Decreased functional mobility and endurance 01/20/2025 2:00 PM CDT Therapy [facility] at [address] [address] Tiffanie Cantu, PT Lymphedema (Primary Dx); Decreased functional mobility and endurance 01/19/2025 7:00 PM CDT - 01/19/2025 11:59 PM CDT Hospital Encounter [facility] [address] [place] [address] Obstructive sleep apnea Discharge Disposition: Discharge to home or self care 01/18/2025 3:00 PM CDT Therapy [facility] at [address] [address] Tiffanie Cantu, PT Lymphedema (Primary Dx); Decreased functional mobility and endurance 01/11/2025 1:00 PM CDT Therapy [facility] at [address] [address] Tiffanie Cantu, PT Lymphedema (Primary Dx); Decreased functional mobility and endurance 01/10/2025 12:21 PM CDT - 01/10/2025 11:59 PM CDT Hospital Encounter [facility] [address] [place] [address] Adam Corrales MD Chronic low back pain with sciatica, sciatica laterality unspecified, unspecified back pain laterality (Primary Dx); Acute right-sided low back pain with right-sided sciatica; Sacroiliitis; Radiculopathy, lumbosacral region; Chronic right-sided low back pain with right-sided sciatica Discharge Disposition: Discharge to home or self care 01/09/2025 Results Follow-Up [facility] Medical [facility] Sleep Medicine at [place] [address] [facility] [address] [place] [address] Iqra Jensen MD [facility] 01/09/2025 Results Follow-Up [facility] Endocrinology Metabolism and Lipid [address] [facility] Advanced Medicine 13th [place] [address] [place] [address] Shirley Teixeira PA Vitamin D 25 hydroxy, Vitamin B12, TSH, Additional followed-up results: 6 01/09/2025 3:10 PM CDT Lab [facility] ([facility]) [address] [place] [address] 01/09/2025 2:55 PM CDT Lab [facility] ([facility]) [address] [place] [address] Uncontrolled type 2 diabetes mellitus with hyperglycemia (HCC); Obstructive sleep apnea; Iron deficiency; Restless leg syndrome 01/09/2025 11:30 AM CDT - 01/09/2025 11:59 PM CDT Hospital Encounter [facility] Breast Imaging [facility] Advanced [facility] [address] [place] [address] Screening mammogram, encounter for Discharge Disposition: Discharge to home or self care 01/09/2025 10:30 AM CDT Office Visit [facility] Endocrinology Metabolism and Lipid [address] [facility] Medicine 13th [place] [address] [place] [address] Shirley Teixeira PA Uncontrolled type 2 diabetes mellitus with hyperglycemia (HCC) (Primary Dx); Benign hypertension; Mixed hyperlipidemia; Morbid obesity with BMI of 50.0-59.9, adult (HCC); alf 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 user; [employer] (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); Encounter for comprehensive diabetic foot examination, type 2 diabetes mellitus (HCC) 01/06/2025 Plan of Care Documentation [facility] at [address] [address] 01/06/2025 Documentation [facility] at [address] [address] Tiffanie Cantu, PT compression script 01/06/2025 Plan of Care Documentation [facility] Services at [address] [address] 01/06/2025 2:00 PM CDT Therapy [facility] Services at [address] [address] Tiffanie Cantu, PT Lymphedema (Primary Dx); Decreased functional mobility and endurance 01/04/2025 12:00 PM CDT Therapy [facility] Services at [address] [address] Tiffanie Cantu, PT Lymphedema (Primary Dx); Decreased functional mobility and endurance 01/03/2025 Results Follow-Up [facility] Medical Group Pulmonary at [address] [phone] Canelo Doan DO Transthoracic Echo (TTE) Complete W Doppler/CF 01/02/2025 9:30 AM CDT Office Visit [facility] Sleep Medicine at [address] [phone] Iqra Jensen MD Obstructive sleep apnea (Primary Dx); Hypersomnia; Obesity, unspecified class, unspecified obesity type, unspecified whether serious comorbidity present; Iron deficiency; Restless leg syndrome 12/30/2024 Telephone [facility] Medical [facility] Gastroenterology at [address] [place] [phone] Ad Camacho MD 12/29/2024 Plan of Care Documentation [facility] Services at [address] [address] 12/29/2024 9:00 AM CDT Therapy [facility] at [address] [address] Ele Vazquez, PT Lymphedema (Primary Dx); Decreased functional mobility and endurance 12/23/2024 6:57 AM CDT - 12/23/2024 11:59 PM CDT Hospital Encounter [facility] Card[facility] [address] [place] [address] Hypoxia Discharge Disposition: Discharge to home or self care 12/22/2024 Telephone [facility] Gastroenterology at [facility] Emergency Department [address] [place] [address] [address] [place] [address] Aelx Billings MD 12/21/2024 2:30 PM CDT Office Visit [facility] Primary Care at [facility] [address] [facility] [address], [place] [address] Lynn Rodriguez MD Acute right-sided low back [...] Films 12/13/2024 2:30 PM CDT Office Visit [facility] Pulmonary at [address] [place] [address] Canelo Doan DO Moderate persistent asthma without complication (Primary Dx); Class 3 severe obesity due to excess calories with serious comorbidity and body mass index (BMI) of 45.0 to 49.9 in adult; Chronic hypoxic respiratory failure (HCC); alf 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 user 11/30/2024 3:30 PM CDT Office Visit [facility] Convenient Care at [address] [address] Minnie House NP Acute non-recurrent frontal sinusitis (Primary Dx) from Last 3 Months Allergies Active Allergy [...] 2 (two) times a day 024 Active predniSONE (DELTASONE) 10 mg tablet 024 Active venlafaxine XR (EFFEXOR-XR) 150 mg 24 hr capsule Take 1 capsule (150 mg total) by mouth daily 30 capsule 024 Active Protonix 40 mg EC tablet 024 Active pamabrom (DIUREX MAX ORAL) 024 Active gabapentin (NEURONTIN) 300 mg capsule 024 Active folic acid (FOLVITE) 1 mg tablet 024 Active lancets 33 gauge miscIndications:U ncontrolled type 2 diabetes mellitus with hyperglycemia (HCC) Use to check blood sugar as directed up to 4 times daily. 400 each 3 024 Active blood-glucose sensor (HItviews G7 Sensor) deviceIndications :Uncontrolled type 2 diabetes mellitus with hyperglycemia (HCC),[employer] (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) Use for continuous glucose monitor. Change sensor every 10 days. 9 each 3 024 Active blood glucose diagnostic stripIndications: Uncontrolled type 2 diabetes mellitus with hyperglycemia (HCC) Use to check blood sugar as directed up to 4 times dialy. 400 strip 3 025 Active acetaminophen (TYLENOL) 500 mg tablet Take 1 tablet (500 mg total) by mouth every 6 (six) hours as needed Active methotrexate 2.5 mg tablet Take 5 tablets (12.5 mg total) by mouth 024 Active montelukast (SINGULAIR) 10 mg tablet Take 1 tablet (10 mg total) by mouth nightly Active cyclobenzaprine (FLEXERIL) 10 mg tablet 3 024 Active budesonide-formot Rochelle (SYMBICORT) 160-4.5 mcg/actuation inhaler [...] NEBULIZER EVERY 6 HOURS NEEDED FOR WHEEZING (TALCER RECOMMENDS NOT EXCEEDING 4 VIALS/DAY) 600 mL 6 Active albuterol HFA (PROVENTIL HFA,VENTOLIN HFA,PROAIR HFA) 90 mcg/actuation inhaler USE 2 INHALATIONS BY MOUTH EVERY 4 HOURS NEEDED FOR WHEEZING OR SHORTNESS OF BREATH 51 g 3 Active Baqsimi 3 mg/actuation spray,non-aerosol Indications:Uncon trolled type 2 diabetes mellitus with hyperglycemia (HCC) INSERT DEVICE TIP INTO 1 NOSTRIL PUSH DEVICE PLUNGER UNTIL GREEN LINE DISAPPEARS. NEEDED IN CASE OF EMERGENCY LOW BLOOD SUGARS. 1 each 3 Active tirzepatide (Mounjaro) 15 mg/0.5 mL pen injector injectionIndicati ons:Uncontrolled type 2 diabetes mellitus with hyperglycemia (HCC) Inject 0.5 mL (15 mg total) under the skin every 7 days 6 mL 3 Active lisinopriL (PRINIVIL,ZESTRIL ) 40 mg tablet [...] exertion Follow up pulmonary Impaired mobility 07/29/2024 [employer] (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 07/13/2024 [employer] 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 user 07/13/2024 Assessment & Plan (07/13/2024 12:22 PM [facility]): - Further complicates diabetes management Has immunity to COVID-19 virus 06/21/2021 Overview (06/30/2022): Pito vaccine 10/05/2020, Moderna booster and Pfizer bivalent booster Assessment & Plan (06/24/2021 3:28 PM [facility]): Pito vaccine 10/05/2020 and Moderna booster Jun 2021 Major depressive disorder 04/22/2021 Assessment & Plan (01/06/2024 9:09 AM CDT): Stable on current medication regimen. Assessment & Plan (01/17/2022 10:21 AM CDT): Stable on current medication regimen. Assessment & Plan (07/17/2021 2:07 PM [facility]): Better controlled on venlafaxine. Assessment & Plan (04/22/2021 8:25 AM CDT): Restart venlafaxine and warned of side effects and call back if any develop or if no improvement. 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 Unfortunately lab work and skin biopsy inconclusive. Discussed possible rheumatology 2nd opinion here at [facility] and patient will call back if desired. Assessment & Plan (06/15/2023 10:48 AM [facility]): Certainly making a case for underlying vasculitis [...] condition. Assessment & Plan (06/20/2020 9:35 AM [facility]): Unclear etiology but I am thinking of [...] tolerated Assessment & Plan (08/26/2024 6:10 PM [facility]): Body mass index is 49.1 kg/m . BMI Follow-up includes: nutrition counseling, exercise counseling, and education provided. Assessment & Plan (07/13/2024 12:20 PM [facility]): - Increase Mounjaro to 10 mg weekly [...] tolerated. Assessment & Plan (06/08/2023 5:23 PM [facility]): Patient is encouraged to lose weight with a combination of caloric reduction and increased exercise. Various strategies discussed. The long-term risks associated with continued morbid obesity discussed. Assessment & Plan (09/04/2022 2:34 PM [facility]): Patient is encouraged to lose weight with a combination of caloric reduction and increased exercise. Various strategies discussed. The long-term risks associated with continued morbid obesity discussed. Assessment & Plan (08/02/2022 12:16 PM [facility]): Patient is encouraged to lose weight with [...] discussed. Assessment & Plan (07/13/2020 8:34 AM [facility]): Patient is encouraged to lose weight with a combination of caloric reduction and increased exercise. Various strategies discussed. The long-term risks associated with continued morbid obesity discussed. Assessment & Plan (06/20/2020 9:35 AM [facility]): Patient is encouraged to lose weight with a combination of caloric reduction and increased exercise. Various strategies discussed. The long-term risks associated with continued morbid obesity discussed. Assessment & Plan (07/08/2019 8:44 AM [facility]): Patient is encouraged to lose weight with a combination of caloric reduction and increased exercise. Various strategies discussed. The long-term risks associated with continued morbid obesity discussed. Irregular menses 06/03/2019 Allergic rhinitis 07/05/2018 Assessment & Plan (02/23/2023 1:30 PM CDT): Nasal saline spray (Simply saline, Little Remedies, [place], [place]) 2 second sprays or 2 squeezes into [...] daily Assessment & Plan (07/17/2021 2:07 PM [facility]): Claritin montelukast. Assessment & Plan (04/22/2021 8:25 AM CDT): Currently using Claritin and montelukast. She has not been trying Flonase as her nose is being to congested. Recommended sinus rinses her using a hot warm shower. Could also try Afrin for few days. Assessment & Plan (07/08/2019 8:43 AM [facility]): Add montelukast to her Claritin. She struggles with nasal sprays due to chronic congestion. Assessment & Plan (07/05/2018 9:24 AM [facility]): Try Afrin for 3 days along with [...] mg/dL Assessment & Plan (07/13/2024 12:21 PM [facility]): - Last LDL 103, TG 308, TC [...] triglycerides. Assessment & Plan (09/12/2023 8:12 PM [facility]): Continue statin and optimize glycemic control Assessment & Plan (02/16/2023 8:14 PM CDT): Continue statin and optimize glycemic control Assessment & Plan (01/21/2023 9:50 AM CDT): Continue her atorvastatin and work on diet exercise and check lipids and LFTs before next visit. Assessment & Plan (08/02/2022 12:15 PM [facility]): Well controlled on current therapy and will check a lipid panel and LFTs in 6 months. Assessment & Plan (01/17/2022 10:21 AM CDT): Well controlled on current therapy and will check a lipid panel and LFTs in 6 months. Assessment & Plan (07/17/2021 2:06 PM [facility]): Well controlled on current therapy and will check a lipid panel and LFTs in 6 months. Assessment & Plan (06/24/2021 3:28 PM [facility]): Continue statin and optimize glycemic control Assessment & Plan (12/19/2020 7:53 AM CDT): Continue statin and optimize glycemic control Assessment & Plan (07/13/2020 8:34 AM [facility]): Well controlled on current therapy and will check a lipid panel and LFTs in 6 months. Assessment & Plan (06/08/2020 8:31 AM [facility]): LDL within goal. Continue statin and optimize glycemic control Assessment & Plan (07/08/2019 8:42 AM [facility]): Well controlled on current therapy and will check a lipid panel and LFTs in 12 months. Assessment & Plan (09/01/2018 2:22 PM [facility]): Continue statin, optimize glycemic control Assessment & Plan (07/05/2018 9:23 AM [facility]): Well controlled on current therapy and will check a lipid panel and LFTs in 6 months. Assessment & Plan (08/26/2017 4:27 PM [facility]): Start atorvastatin and check lipids and LFTs in 3-4 months. Call back for results. Vitamin D deficiency 07/02/2017 Assessment & Plan (07/13/2024 12:22 PM [facility]): - Last Vitamin D 42 (12/2023), replete [...] week Assessment & Plan (09/12/2023 8:12 PM [facility]): Continue long-term supplement Assessment & Plan (02/16/2023 8:14 PM CDT): Continue long-term supplement Assessment & Plan (08/02/2022 12:15 PM [facility]): Continue current supplementation and check level in 1 year. Assessment & Plan (07/17/2021 2:06 PM [facility]): Continue current supplementation and check level in 1 year. Assessment & Plan (06/24/2021 3:29 PM [facility]): Continue long-term supplement Assessment & Plan (12/19/2020 7:53 AM CDT): Continue long-term supplement Assessment & Plan (07/13/2020 8:33 AM [facility]): Continue current supplementation and check level in 1 year. Assessment & Plan (06/08/2020 8:31 AM [facility]): Vitamin-D level within goal, continue chronic supplement Assessment & Plan (07/08/2019 8:42 AM [facility]): Continue current supplementation and check level in 1 year. Assessment & Plan (06/03/2019 8:24 AM CDT): Recently ran out of supplement, so we will restart and check her level today. Also check B12 Assessment & Plan (09/01/2018 2:22 PM [facility]): Continue supplement Assessment & Plan (07/05/2018 9:23 AM [facility]): Continue current supplementation and check level in 1 year. Assessment & Plan (08/26/2017 4:26 PM [facility]): Continue current supplementation and check level in [...] Value Date HGBA1C 8.9 (A) 01/09/2025 Per [employer], goal A1c is less 7% [...] that I am available via phone or Epiphytet if they have any concerns for hypo/hyperglycemia, medication refills, etc. Assessment & Plan (10/12/2024 11:32 AM CDT): - Diabetes is complicated by hyperlipidemia, hypertension, obesity and chronic steroid use. Control is improving with most recent A1c 7.8%. Lab Results Component Value Date HGBA1C 11.7 07/13/2024 Per [employer], goal A1c is less 7% [...] that I am available via phone or Epiphytet if they have any concerns for hypo/hyperglycemia, medication refills, etc. Assessment & Plan (08/26/2024 6:10 PM [facility]): Assessment & Plan (07/13/2024 12:20 PM [facility]): - Diabetes is complicated by hyperlipidemia, hypertension, morbid obesity and chronic steroid use. Uncontrolled. Lab Results Component Value Date HGBA1C 11.7 07/13/2024 Per [employer], goal A1c is less 7% [...] in prescriptions for both Dexcom G7 and [employer] Silva 3 CGM for mcmillan checking. Also [...] Return visit 3 months to see the SHODER FILLER/PA, 6 months to see me. Assessment & [...] Component Value Date HGBA1C 12.5 11/17/2023 Per [employer], goal A1c is less 7% [...] that I am available via phone or [employer] if they have any concerns for hypo/hyperglycemia, medication refills, etc. Assessment & Plan (11/18/2023 8:23 AM CDT): - Diabetes is complicated by HTN, HLD, steroid use, hyperglycemia and obesity. Uncontrolled. Lab Results Component Value Date HGBA1C 12.5 11/17/2023 Per [employer], goal A1c is less 7% [...] etc. Assessment & Plan (09/12/2023 8:13 PM [facility]): Very high glucoses; multifactorial including steroid therapy, [...] daily. Assessment & Plan (06/24/2021 3:29 PM [facility]): Much improved but needs a little more basal insulin. Assessment & Plan (12/19/2020 7:53 AM CDT): Multiple medications, but now requires insulin. We can gradually adjust her Lantus based on her clinical response. Assessment & Plan (06/08/2020 8:32 AM [facility]): Glucoses somewhat better now that she is [...] motivator. Assessment & Plan (07/08/2019 8:43 AM [facility]): Continue increased dose of Ozempic and also continue Invokana. Importance of dietary changes increase exercise weight loss discussed. Follow-up with her digital sales assistant as they direct. Assessment & Plan (06/03/2019 8:25 AM CDT): Somewhat suboptimal, would benefit from increasing Ozempic and continuing efforts with diet and lifestyle. Needs follow-up labs Assessment & Plan (09/01/2018 2:22 PM [facility]): Glucoses a little high, but she has bruising with Victoza so she may benefit by changing to weekly Ozempic, which is a little stronger, as well. Jardiance is been ineffective, so we may need to provide preauthorization for Invokana Assessment & Plan (07/05/2018 9:23 AM [facility]): A1c above goal. We stressed importance of increased exercise, reduce calories, weight loss. Could consider switching Victoza to ozempic. Otherwise does not tolerate metformin or sulfonylureas. May need insulin soon. She is directed to follow up with her digital sales assistant more quickly than her next scheduled appointment in November. Assessment & Plan (08/26/2017 4:26 PM [facility]): Continue current medication regimen and follow up with her digital sales assistant as they direct. Low carb diet weight [...] mmHg Assessment & Plan (07/13/2024 12:21 PM [facility]): - Above goal today - Encouraged her [...] monitor. Assessment & Plan (06/08/2023 5:25 PM [facility]): Stop amlodipine with current issues of swelling. Pressure currently well controlled and should monitor at home Assessment & Plan (01/21/2023 9:49 AM CDT): Blood pressure well controlled on lisinopril Assessment & Plan (09/04/2022 2:34 PM [facility]): Blood pressure well controlled on her lisinopril. Assessment & Plan (08/02/2022 12:15 PM [facility]): Increase lisinopril to 20 mg daily. Monitor blood pressure at home call back if no improvement. Assessment & Plan (01/17/2022 10:21 AM CDT): Well controlled on the current regimen. Avoidance of salt, proper body weight, and routine exercise recommended. Assessment & Plan (07/17/2021 2:06 PM [facility]): Well controlled on the current regimen. Avoidance of salt, proper body weight, and routine exercise recommended. Assessment & Plan (04/22/2021 8:24 AM CDT): Well controlled on the current regimen. Avoidance of salt, proper body weight, and routine exercise recommended. Assessment & Plan (07/13/2020 8:34 AM [facility]): Well controlled on the current regimen. Avoidance of salt, proper body weight, and routine exercise recommended. Assessment & Plan (07/08/2019 8:42 AM [facility]): Well controlled on the current regimen. Avoidance of salt, proper body weight, and routine exercise recommended. Assessment & Plan (09/01/2018 2:21 PM [facility]): Blood pressure close to target, working on diet and lifestyle Assessment & Plan (07/05/2018 9:23 AM [facility]): Well controlled on the current regimen. Avoidance of salt, proper body weight, and routine exercise recommended. Assessment & Plan (08/26/2017 4:25 PM [facility]): Well controlled on the current regimen. Avoidance [...] montelukast Assessment & Plan (08/26/2024 6:08 PM [facility]): Recent exacerbation due to CAP followed by RSV Symptoms improved Continue present plan and medication--albuterol prn, montelukast Assessment & Plan (07/13/2020 8:36 AM [facility]): Doing well on her Symbicort. Okay to discontinue and use albuterol only as needed. Restart Symbicort if uses her albuterol more than 2 times a week. Obstructive sleep apnea 04/01/2012 Overview (11/12/2017): Description: CPAP Assessment & Plan (01/06/2024 9:08 AM CDT): Patient is compliant with the CPAP machine and gets symptomatic relief. Assessment & Plan (08/02/2022 12:15 PM [facility]): Patient is compliant with the CPAP machine and gets symptomatic relief. Assessment & Plan (07/17/2021 2:06 PM [facility]): Repeat sleep study confirmed obstructive sleep apnea [...] syndrome. Assessment & Plan (07/13/2020 8:34 AM [facility]): Patient is compliant with the CPAP machine and gets symptomatic relief. Assessment & Plan (07/08/2019 8:42 AM [facility]): Patient is compliant with the CPAP machine and gets symptomatic relief. Female infertility associated with anovulation 0 09/21/2011 Resolved Problems Problem Noted Date Diagnosed Date Resolved Date Decreased functional mobility and endurance 12/29/2024 02/15/2025 Uncontrolled diabetes mellit us with hyperglycemia 08/14/2024 12/21/2024 Acute hypoxic respiratory failure 08/13/2024 12/21/2024 Assessment & Plan (08/26/2024 6:09 PM [facility]): Recent hospitalization likely for CAP followed by RSV Symptoms resolved Lymphedema 04/06/2024 08/26/2024 Assessment & Plan (04/06/2024 4:13 PM CDT): Chronic leg cellulitis with noted swelling, edema and discoloration Discussed order for occupational therapy for leg wrapping techniques, exercises, and physical health of legs to prevent infection and further swelling and/or damage to legs Need for vaccination 04/06/2024 025 Assessment & Plan (04/06/2024 4:14 PM [...] legs Assessment & Plan (06/15/2023 10:47 AM [facility]): Improved after addition of doxycycline to her Bactrim. Call back if symptoms worsen after doxycycline runs out Assessment & Plan (06/08/2023 5:25 PM [facility]): Seems like cellulitis slow to improve either [...] 12/21/2024 Assessment & Plan (09/04/2022 2:35 PM [facility]): No signs of neurological abnormality on examination [...] Continue other medications as directed by her digital sales assistant. Diet exercise discussed. Hopefully may be able to wean prednisone in the near future as well. Assessment & Plan (06/15/2023 10:48 AM [facility]): She knows that the steroids will exacerbate her hyperglycemia and should be in contact with her digital sales assistant for management. Assessment & Plan (06/08/2023 5:26 PM [facility]): Poor control of her diabetes prior to this hospitalization and even worse now on prednisone. Follow-up with her digital sales assistant for management. Diet exercise weight loss recommended. Assessment & Plan (01/21/2023 9:50 AM CDT): Blood sugars remain above goal. Hopefully the recent addition of mounjaro will help significantly. Discuss up titration of this and her mealtime insulin with her digital sales assistant. Diet exercise discussed. Check A1c and fasting blood sugar before next visit. Assessment & Plan (08/02/2022 12:16 PM [facility]): A1c poorly controlled. Importance of diet exercise weight loss discussed at length. Continue her Ozempic and insulin and needs to contact her digital sales assistant soon as possible for guidance on further therapy. Assessment & Plan (01/17/2022 10:22 AM CDT): Patient aware A1c grossly uncontrolled. Must work on diet exercise and weight loss. She has to get back on her insulin and should discuss this today with her digital sales assistant. Risks posed her health with poor glycemic control discussed. Assessment & Plan (07/13/2020 8:34 AM [facility]): A1c above goal. Importance of diet exercise weight loss discussed. Continue current medication regimen and follow-up with her digital sales assistant as they direct. Dyslipidemia 06/03/2019 07/13/2020 Healthcare [...] yearly. Colonoscopy due March 2027. Follow-up the step finisher for breast exam pelvic exam as they direct. Will see her back in about 6 months sooner if needed. Assessment & Plan (08/02/2022 12:17 PM [facility]): Flu shot each May. Tetanus booster every 10 years. Pneumovax completed. COVID booster recommended. Mammogram yearly. Colonoscopy due March 2027. Follow-up the step finisher for breast exam pelvic exam as they direct. Will see her back in 6 months with lab sooner if needed. Assessment & Plan (07/17/2021 2:08 PM [facility]): Flu shot each May. Tetanus booster every 10 years. Pneumovax completed. COVID vaccine completed. Mammogram yearly. Colonoscopy ordered and she should verify coverage before proceeding. Follow-up the step finisher for breast exam and pelvic exam as they direct. We will see her back in 1 year for physical and fasting lab sooner if needed. Assessment & Plan (07/13/2020 8:35 AM [facility]): Flu shot each May. Tetanus booster every 10 years. She has had a Pneumovax. Mammogram was abnormal back in August and she has delayed follow-up studies until now and she is urged to get her diagnostic and ultrasound studies done at her earliest convenience and she is aware of the risks posed her health with delay in proceeding. Follow-up the step finisher for breast exam and pelvic exam as they direct. We will see her back in 1 year for wellness visit fasting lab sooner if needed. Assessment & Plan (07/08/2019 8:43 AM [facility]): Flu shot each May. Tetanus booster every 10 years. Mammogram ordered. Will see her back in 1 year for physical and fasting lab sooner if needed. Assessment & Plan (07/05/2018 9:24 AM [facility]): Tetanus booster today. Flu shot each May. Mammogram ordered. Patient should follow-up the step finisher breast exam and pelvic exam. We will see her back in 1 year for wellness visit fasting lab sooner if needed. Assessment & Plan (08/26/2017 4:27 PM [facility]): Flu shot each May. Tetanus booster every 10 years. See her step finisher for breast exam mammogram and Pap smear is a direct. We will see her back in 1 year with fasting lab sooner if needed. Morbid obesity with BMI of 50.0-59.9, adult 08/26/2017 02/15/2025 Assessment & Plan (01/09/2025 11:31 AM CDT): - Increase Mounjaro as above - She is following with Pain Management, hopefully will decrease prednisone dose soon - Encouraged her to try water aerobics Assessment & Plan (08/26/2017 4:28 PM [facility]): Patient is encouraged to lose weight with [...] Unspecified 05/16/2021,2020,04/22/2021(Defer red: Patient Refused),03/19/2021(Deferred: Patient Refused),05/12/2019,05/07/2017 3DVista (J&J) SARS-CoV-2 Vaccination 10/05/2020 Pneumococcal Conjugate Pcv20 [...] on file Legal Sex Female 11:54 PM [facility] Gender Identity Female 09/19/2020 8:37 AM [facility] Sexual Orientation Straight 09/19/2020 8: 37 AM [facility] Last Filed Vital Signs Vital Sign Reading [...] Description 04/27/2025 7:30 AM CDT Hospital Encounter [address] [address] Ad Camacho MD [address] [place] [address] [address] [address] 04/27/2025 7:30 AM CDT - 04/27/2025 8:00 AM CDT Surgery [address] [address] Ad Camacho MD [address] [place] [address] [address] [place] [address] ESOPHAGOGASTRODUODENOSCOPY Scheduled Procedures Name Priority Associated Diagnoses Date/Ti me ESOPHAGOGASTRODUODENOSCOPY Dysphagia, unspecified type 04/27/2025 7:30 AM CDT Procedures Procedure Name Priority Date/Time Associated Diagnosis [...] CDT) LALO, qual NEGATIVE NEGATIVE [facility] [place] Comment: LALO IFA is a first line [...] AC-0: Negative International Consensus on LALO Patterns (https://doi.org/10.1515/dvhu-9754-8940) For additional information, please refer to http://education.SocialSign.in.Info/faq/RET713 (This link is being provided for informational/ educational purposes only.) Blood 02/15/2025 10:4 1 AM CDT 02/15/2025 10:43 AM CDT Narrative [facility] - 02/16/2025 3:55 PM CDT FASTING:YES FASTING: YES us Lucian Trinidad MD PhD LAB BLOOD ORDERABLE S Final Result [facility] [address] [address] [facility] [place] [address] * Anti-double stranded DNA abs (02/15/2025 10:41 [...] ORDERABLE S Final Result Performing Organization Address [facility] de Phone Number [facility] [address] [place] [address] * NOTE (02/15/2025 10:41 AM CDT) Note [facility] Comment: This urine was analyzed for the presence of WBC, RBC, bacteria, casts, and other formed elements. Only those elements seen were reported. 02/15/2025 10:4 1 AM CDT 02/15/2025 10:43 AM CDT Narrative [facility] - 02/16/2025 6:35 AM CDT FASTING:YES FASTING: YES Lucian Trinidad MD PhD LAB BLOOD ORDERABLE S Final Result Performing Organization Address [facility] de Phone Number [facility] [address] [place] [address] * C4 complement (02/15/2025 10:41 AM CDT) [facility] Complement component C4C 24 15 - 57 mg/dL [facility] Blood 02/15/2025 10:4 1 AM CDT 02/15/2025 10:43 AM CDT Narrative [facility] - 02/16/2025 7:26 AM CDT FASTING:YES FASTING: YES Lucian Trinidad MD PhD LAB BLOOD ORDERABLE S Final Result Performing Organization Address [facility] de Phone Number [facility] [address] [place] [address] * PR3 - proteinase 3, Ab (02/15/2025 10:41 AM CDT) Proteinase-3 ab <1.0 [facility] Comment: Value Interpretation ----- <1.0 No Antibody Detected > or = 1.0 Antibody Detected Autoantibodies to proteinase-3 (SC-3) are accepted as characteristic for granulomatosis with polyangiitis (GPA, Brent's), and are detectable in 95% of the histologically proven cases. The cytoplasmic IFA pattern, (c-ANCA), is based largely on autoantibody to SC-3 which serves as the primary antigen. These autoantibodies are present in active disease. Blood 02/15/2025 10:4 1 AM CDT 02/15/2025 10:43 AM CDT [facility] - 02/16/2025 7:07 AM CDT FASTING:YES FASTING: YES Lucian Trinidad MD PhD LAB BLOOD ORDERABLE S Final Result [facility] [address] [place] [address] * MPO - myeloperoxidase antibody (02/15/2025 10:41 AM CDT) MYELOPEROXIDASE ANTIBODY <1.0 [facility]@ [facility] [place] Comment: Value Interpretation ----- <1.0 No Antibody [...] AM CDT 02/15/2025 10:43 AM CDT Narrative [employer] - 02/16/2025 7:07 AM CDT FASTING:YES FASTING: YES us Lucian Trinidad MD PhD LAB BLOOD ORDERABLE S Final Result Performing Organization Address [facility]/ZIP Co de Phone Number PILO [facility] [address] [address] [address] * (ABNORMAL) Urinalysis reflex to microscopic (02/15/2025 10:41 AM CDT) Color, ur YELLOW YELLOW [facility] [place] Appearance, ur CLOUDY(A) CLEAR [facility] [place] Specific gravity 1.039(H) 1.001 - 1.035 [facility] [place] pH, ur < OR = 5.0(A) 5.0 - 8.0 [facility] [place] Glucose, ur 2+(A) NEGATIVE [facility] [place] Bilirubin, ur NEGATIVE NEGATIVE [facility] [place] Ketones, ur TRACE(A) NEGATIVE [facility] [place] Blood, ur 1+(A) NEGATIVE [facility] [place] Protein, ur, quant 1+(A) NEGATIVE [facility] [place] Nitrites, ur NEGATIVE NEGATIVE [facility] [place] Leukocyte esterase, ur NEGATIVE NEGATIVE [facility] [place] WBC, ur NONE SEEN < OR = 5 /HPF [facility] [place] RBC, ur NONE SEEN < OR = 2 /HPF [facility] [place] Epithelial cells, squamous, ur 20-40(A) < OR = 5 /HPF [facility] [place] Bacteria, ur, quant FEW(A) NONE SEEN /HPF [facility] [place] Hyaline cast NONE SEEN NONE SEEN /LPF [facility] [place] Yeast, ur MANY(A) NONE SEEN /HPF [facility] [place] Urine 02/15/2025 10:4 1 AM CDT 02/15/2025 10:43 AM CDT Narrative [facility] - 02/16/2025 6:35 AM CDT FASTING:YES FASTING: YES us Lucian Trinidad MD PhD LAB URINE ORDERABLE S Final Result Performing Organization Address [facility]/ZIP Co de Phone Number PILO [facility] [address] [address] [address] * (ABNORMAL) CBC with auto differential (02/15/2025 10:41 AM CDT) Pathologist [facility] WBC 17.6(H) 3.8 - 10.8 Thousand/ uL [...] ORDERABLE S Final Result Performing Organization Address [facility] de Phone Number [facility] [address] [place] [address] * Cyclic citrul peptide antibody, IgG (02/15/2025 10:41 AM CDT) Pathologist [facility] Cyclic citrullinated peptide ab, IgG <16 UNITS [facility] Comment: Reference Range Negative: <20 Weak Positive: 20-39 Moderate Positive: 40-59 Strong Positive: >59 Blood 02/15/2025 10:4 1 AM CDT 02/15/2025 10:43 AM CDT Narrative [facility] - 02/16/2025 4:08 PM CDT FASTING:YES FASTING: YES us Lucian Trinidad MD PhD LAB BLOOD ORDERABLE S Final Result Performing Organization Address [facility] Phone Number [facility] [address] [place] [address] * (ABNORMAL) Protein / creatinine ratio, urine, random (02/15/2025 10:41 AM CDT) Pathologist [facility] Creatinine, ur 209 20 - 275 mg/dL [...] ORDERABLE S Final Result Performing Organization Address [facility] de Phone Number [facility] [address] [place] [address] * Erythrocyte sedimentation rate (02/15/2025 10:41 AM CDT) Erythrocyte sedimentation rate 6 < OR = 20 mm/h [facility] Blood 02/15/2025 10:4 1 AM CDT 02/15/2025 10:43 AM CDT Narrative [facility] - 02/16/2025 7:26 AM CDT FASTING:YES FASTING: YES us Lucian Trinidad MD PhD LAB BLOOD ORDERABLE S Final Result [facility] [address] [place] [address] * Rheumatoid factor (02/15/2025 10:41 AM CDT) Rheumatoid factor, quant <10 <14 IU/mL [facility] Blood 02/15/2025 10:4 1 AM CDT 02/15/2025 10:43 AM CDT Narrative [facility] - 02/16/2025 6:07 AM CDT FASTING:YES FASTING: YES us Lucian Trinidad MD PhD LAB BLOOD ORDERABLE S Final Result Performing Organization Address City/[facility]/ZIP Co de Phone Number [facility] [address] [place] [address] * C3 complement (02/15/2025 10:41 AM CDT) Complement component C3C 188 83 - 193 mg/dL [facility] Blood 02/15/2025 10:4 1 AM CDT 02/15/2025 10:43 AM CDT Narrative [facility] - 02/16/2025 7:26 AM CDT FASTING:YES FASTING: YES Lucian Trinidad MD PhD LAB BLOOD ORDERABLE S Final Result Performing Organization Address City/[facility]/ZIP Co de Phone Number [facility] [address] [place] [address] * CRP (cardiac risk) (02/15/2025 10:41 AM CDT) hsCRP 2.9 mg/L [facility] Comment: Reference Range Optimal <1.0 Yobani TAN [...] for Disease Control and Prevention and the [employer]. Circulation 2003; 107(3): 499-511. Blood 02/15/2025 10:4 1 AM CDT 02/15/2025 10:43 AM CDT Narrative [facility] - 02/16/2025 6:07 AM CDT FASTING:YES FASTING: YES us Lucian Trinidad MD PhD LAB BLOOD ORDERABLE S Final Result [facility] [address] [facility] [place] [address] * Creatine kinase (CK), total (02/15/2025 10:41 AM CDT) Pathologist [facility] CK 82 20 - 239 U/L [facility] Blood 02/15/2025 10:4 1 AM CDT 02/15/2025 10:43 AM CDT Narrative [facility] - 02/16/2025 5:36 AM CDT FASTING:YES FASTING: YES us Lucian Trinidad MD PhD LAB BLOOD ORDERABLE S Final Result [facility] [address] [address] [address] * (ABNORMAL) Comprehensive metabolic panel (02/15/2025 10:41 [...] 02/16/2025 5:36 AM CDT FASTING:YES FASTING: YES Lucian Trinidad MD PhD LAB BLOOD ORDERABLE S Final Result [facility] [address] [place] [address] * Imaging Lumbar/Caudal Epidural Steroid INJ (50331) (02/14/2025 1:38 PM CDT) Narrative [facility] - 02/14/2025 1:38 PM CDT The images from this study are not interpreted by Radiology. Please refer to the physician's procedure / OR operative note. Amada Baldwin SHODER FILLER IMG PAIN MGMT PROCEDURE S Final Result Performing Organization Address [facility]/ZIP Co de Phone Number [facility] * MRI Lumbar Spine WO Contrast [...] by: Kan Desai M.D. Sumit Yu MD [facility] [place] XR PROCEDURES Final Result * XR Knee Right 4 or More Views (02/02/2025 4:06 PM CDT) Anatomical Region Laterality Modality Lower Extremities, Knee Right Computed Radiography 02/02/2025 4:08 PM CDT Impressions 02/02/2025 4:08 PM CDT No fracture or dislocation is seen. Electronically signed by: Kna Desai M.D. Narrative 02/02/2025 4:08 PM CDT [...] seen. Electronically signed by: Kan Desai M.D. us Sumit Yu MD [facility] [place] XR PROCEDURES Final Result * XR Chest [...] spine. Electronically signed by: Kan Desai M.D. us Lizzette Garsia MD IMG CT PROCEDURES Final Result * Neuromuscular Specimen Tracking Outpatient Blood (01/27/2025 2:03 PM CDT) Blood Narrative [facility] - 01/27/2025 2:03 PM CDT Blood draw complete us Lucian Trinidad MD PhD LAB BLOOD ORDERABLE S Final Result [facility] Department [place] [address] * XR Hand Right 3 or More [...] Antibodies against the following antigens: Ashly-1 Ab, HEALTH EDUCATION ASSISTANT Ab, Scl-70 Ab, Bradshaw Ab, SS-A/Ro Ab, and SS- B/La Ab. Further testing for dsDNA, Centromere, or Ribosomal P antibodies is suggested in patient with a positive screen and negative specific antibodies. Current interpretive data was last revised on 2023. Blood 01/24/2025 9:41 AM CDT 01/24/2025 10:43 AM CDT Lucian Trinidad MD PhD LAB BLOOD ORDERABLE S Final Result Performing Organization Address [facility] Phone Number [facility] [employer] [place] [address] * Anti-Neutrophilic Cytoplasmic Antibody (ANCA) with Reflex to MPO and PR3 Abs (01/24/2025 9:41 AM CDT) ANCA Negative Blood 01/24/2025 9:41 AM CDT 01/24/2025 10:43 AM CDT Lucian Trinidad MD PhD LAB BLOOD ORDERABLE S Final Result Performing Organization Address [facility] Co de Phone Number [facility] [place] [address] * Neuromuscular Testing Blood (01/24/2025 12:00 AM CDT) Blood (Serum) 01/24/2025 01/25/2025 Narrative [facility] - 02/06/2025 4:56 PM CDT Please click on the PDF link to view the report containing this result Lucian Trinidad MD PhD LAB PATHOLOGY ORDER DAVI Final Result [facility] Room [address] [place] [address] * eGFR (01/09/2025 12:30 PM CDT) eGFR >90 >=60 mL/min/1. 73 m2 Comment: [...] 0 PM CDT 01/09/2025 1:21 PM CDT Shirley CHUN LAB BLOOD ORDERABLES Flora l Result [facility] Department [place] [address] * (ABNORMAL) Differential, auto (01/09/2025 12:30 PM CDT) Neutrophil abs 10.98(H) 1.50 - 6.50 K/cumm Imm gran abs 0.13(H) 0.00 - 0.10 K/cumm [facility] Lymphocyte abs 1.66 0.80 - 3.30 K/cumm [facility] Monocyte abs 1.29(H) 0.20 - 0.80 K/cumm [facility] Eosinophil abs 0.05 0.00 - 0.50 K/cumm [facility] Basophil abs 0.06 0.00 - 0.10 K/cumm [facility] Neutrophil pct 77.5 % [facility] Comment: Interpretive Data Percent cell count reference ranges are not reported, since discordance with absolute values may lead to misinterpretation of CBC data. Current Interpretive Data was last revised on 2017. Imm gran pct 0.9 % [facility] Comment: Interpretive Data Percent cell count reference ranges are not reported, since discordance with absolute values may lead to misinterpretation of CBC data. Current Interpretive Data was last revised on 2017. Lymphocyte pct 11.7 % [facility] Comment: Interpretive Data Percent cell count reference ranges are not reported, since discordance with absolute values may lead to misinterpretation of CBC data. Current Interpretive Data was last revised on 2017. Monocyte pct 9.1 % [facility] Comment: Interpretive Data Percent cell count reference ranges are not reported, since discordance with absolute values may lead to misinterpretation of CBC data. Current Interpretive Data was last revised on 2017. Eosinophil pct 0.4 % [facility] Comment: Interpretive Data Percent cell count reference ranges are not reported, since discordance with absolute values may lead to misinterpretation of CBC data. Current Interpretive Data was last revised on 2017. Basophil pct 0.4 % [facility] Comment: Interpretive Data Percent cell count reference ranges are not reported, since discordance with absolute values may lead to misinterpretation of CBC data. Current Interpretive Data was last revised on 2017. Blood 01/09/2025 12:3 0 PM CDT 01/09/2025 1:18 PM CDT us Shirley CHUN LAB BLOOD ORDERABLES Flora dowd Result [facility] Department [place] [address] * (ABNORMAL) CBC with auto differential (01/09/2025 12:30 PM CDT) [facility] WBC 14.17(H) 3.80 - 9.90 K/cumm Hgb 12.2 11.9 - 15.5 g/dL [facility] Hct 38.2 35.6 - 45.5 % [facility] Plt 417(H) 150 - 400 K/cumm [facility] MPV 10.2 9.1 - 12.3 fL [facility] RBC 4.21 3.90 - 5.20 M/cumm [facility] MCV 90.7 81.3 - 96.4 fL [facility] MCH 29.0 27.1 - 33.3 pg [facility] MCHC 31.9(L) 32.3 - 35.7 g/dL [facility] RDW CV 16.4(H) 11.1 - 14.9 % [facility] RDW SD 54.8(H) 35.7 - 48.1 fL [facility] NRBC abs 0.00 0.00 - 0.01 K/cumm [facility] Blood 01/09/2025 12:3 0 PM CDT 01/09/2025 1:18 PM CDT us Shirley CHUN LAB BLOOD ORDERABLES Flora dowd Result [facility] Department [place] [address] * Albumin Creatinine Ratio, Urine (01/09/2025 12:30 PM CDT) [facility] Albumin Ur 37.8 mg/L Comment: Interpretive Data No reference range established. Current interpretive data was last revised 2018. Creatinine Ur 353.8 mg/dL [facility] Comment: Interpretive Data No reference range established. Current interpretive data was last revised 2018. Albumin Creatinine Ratio, Ur 11 1 - 29 mg/g [facility] Urine 01/09/2025 12:3 0 PM CDT 01/09/2025 1:18 PM CDT us Shirley CHUN LAB URINE ORDERABLES Flora l Result Performing Organization Address City/[facility] Co de Phone Number [facility] [place] [address] * Vitamin D 25 hydroxy (01/09/2025 12:30 PM CDT) Vitamin D 25-OH 38 30 - 80 ng/mL Blood 01/09/2025 12:3 0 PM CDT 01/09/2025 1:18 PM CDT Shirley CHUN LAB BLOOD ORDERABLES Flora l Result Performing Organization Address [facility] de Phone Number [facility] [place] [address] * TSH (01/09/2025 12:30 PM CDT) Thyroid Stimulating Hormone 1.92 0.30 - 4.20 mcIUnit/mL Blood 01/09/2025 12:3 0 PM CDT 01/09/2025 1:18 PM CDT Result [facility] Shirley CHUN LAB BLOOD ORDERABLES Flora l Result Performing Organization Address [facility] Co de Phone Number [facility] [place] [address] * Ferritin (01/09/2025 12:30 PM CDT) Ferritin 42 13 - 150 ng/mL Blood 01/09/2025 12:3 0 PM CDT 01/09/2025 1:18 PM CDT Iqra Jensen MD LAB BLOOD ORDERABLES Final Resul t Performing Organization Address City/[facility] Co de Phone Number [facility] [place] [address] * Vitamin B12 (01/09/2025 12:30 PM CDT) Vitamin B12 415 230 - 1,250 pg/mL Blood 01/09/2025 12:3 0 PM CDT 01/09/2025 1:18 PM CDT us Shirley CHUN LAB BLOOD ORDERABLES Flora l Result [facility] Department [place] [address] * (ABNORMAL) Lipid panel (01/09/2025 12:30 PM [...] revised on 2018. Triglycerides 334(H) <=149 mg/dL [facility] Comment: Interpretive Data Ages < or [...] revised on 2018. HDL 75 >=40 mg/dL [facility] Comment: Interpretive Data Ages < or [...] on 2018. LDL, calculated 127 <=129 mg/dL [facility] Comment: Interpretive Data Ages < or [...] 3. Sundeep Jara et al. PHILIP Cardiol. 2020 December 01;5(5):540-548. doi: 10.1001/jamacardio.2020.0013 Current Interpretive Data was last revised on 2024. Non-HDL Cholesterol 185 mg/dL [facility] Comment: Interpretive Data Ages < or [...] last revised on 2018. Chol/HDL ratio 3 [facility] Blood 01/09/2025 12:3 0 PM CDT 01/09/2025 1:18 PM CDT Shirley CHUN LAB BLOOD ORDERABLES Flora dowd Result [facility] Department [place] [address] * (ABNORMAL) Comprehensive metabolic panel (01/09/2025 12:30 PM CDT) [facility] Sodium 139 135 - 145 mmol/L Potassium, pl 4.4 3.3 - 4.9 mmol/L [facility] Chloride 99 97 - 110 mmol/L [facility] CO2 27 22 - 32 mmol/L [facility] Anion gap 13 2 - 15 mmol/L [facility] BUN 22 6 - 25 mg/dL [facility] Creatinine 0.74 0.60 - 1.10 mg/dL [facility] Glucose 314(H) 70 - 199 mg/dL [facility] Comment: Interpretive Data Fasting glucose >/= 126 [...] 2022. Calcium 9.2 8.5 - 10.3 mg/dL [facility] Bilirubin, total 0.3 0.1 - 1.2 mg/dL [facility] Protein, pl 6.7 6.5 - 8.5 g/dL [facility] Albumin 4.0 3.5 - 5.0 g/dL [facility] Alk phos 54 40 - 130 Units/L [facility] ALT 69(H) 7 - 45 Units/L [facility] AST 25 10 - 45 Units/L [facility] Blood 01/09/2025 12:3 0 PM CDT 01/09/2025 1:18 PM CDT Shirley CHUN LAB BLOOD ORDERABLES Flora l Result SALMA HERCULESH [facility] Department [place] [address] * Screening Mammogram Bilateral W Vincenzo (01/09/2025 [...] calcification, or architectural distortion in either breast. Self Screening Mammogram IMG MAMMO PROCEDURES Fi nal Result * (ABNORMAL) POCT hemoglobin A1c (01/09/2025 10:44 AM CDT) Hemoglobin A1C, POC 8.9(A) 4.0 - 5.6 % Blood 01/09/2025 10:4 4 AM CDT Shirley CHUN POINT OF CARE TEST ORDERA [...] AM CDT Narrative 12/23/2024 9:46 AM CDT [address] [place] [address] Echocardiogram Report Patient Name: WALT HUITRON : 1975 Study Date: 12/23/2024 7:09:04 AM Gender: F Tech: SHODER FILLER Location: Echo Lab 1 Ref Provider: CANELO [...] study with suboptimal views. Electronically Signed By: eGrman Weathers MD 12/23/2024 9:45:42 AM CDT Procedure Note German Weathers MD - 12/23/[address] [address] Echocardiogram Report Patient Name: WALT HUITRON : 1975 Study Date: 12/23/2024 7:09:04 AM Gender: F Tech: SHODER FILLER Location: Echo Lab 1 Ref Provider: CANELO [...] Outside Reference (12/14/2024 10:10 AM CDT) Narrative [facility] - 01/02/2025 11:11 AM CDT This order has been auto-finalized and does not contain a result. us Not In File Miscellaneous IMG CT PROCEDURES Flora l Result [facility] * Diabetic Eye Exam (11/10/2022) us Generic External Data Provider [facility] Final Result * COLONOSCOPY (04/02/2022 9:28 AM CDT) Anatomical Region Laterality Modality Other Narrative Procedure Note Ad Camacho MD - 04/02/2022 9:28 AM CDT [facility] Patient Name: Walt Huitron Procedure Date: 04/02/2022 9:28 AM Date of : 1975 Admit Type: Outpatient Age: 46 Gender: Female Attending MD: Ad Camacho M.D. Room: [facility] 2 Note Status: Finalized [...] scope was passed under direct vision. TheColonoscope [id number] was introduced through the anus and advanced [...] 9:28 AM Procedure Code(s): --- Professional --- 05004, Colonoscopy, flexible; with biopsy, single or multiple Diagnosis Code(s): --- Professional --- Z12.11, Encounter for screening for malignant neoplasm of colon D12.3, Benign neoplasm of transverse colon (hepatic flexure orsplenic flexure) D12.4, Benign neoplasm of descending colon D12.8, Benign neoplasm of rectum CPT copyright 2020 [employer]. All rights reserved. The codes documented in this report are preliminary and upon courtroom deputy or calendar clerk reviewmay be revised to meet current compliance requirements. Recognized by the [employer] for promoting quality in endoscopy Ad Camacho MD ENDOSCOPY PROCEDURES Final Resul t * Diabetic Foot Exam (03/26/2021) Impressions Art Staley MA - 03/26/2021 In care everywhere Historical Provider HEALTH MAINTENANCE Final Result from Last 3 Months or Most Recently Relevant to Health Maintenance Insurance [employer] [facility] [place] [address] [facility] H[facility]/PPO Address: [address] [place] [phone] [facility] HMO/PPO Address: [address] [place], [place] [id number] Advance Directives For more information, please contact: [phone] * Full Code (Latest Code Status on File) Date Activated Date Inactivated Comments 04/02/2022 9:27 AM 04/02/2022 4:47 PM * Full Code Date Activated Date Inactivated Comments 04/02/2022 9:27 AM 04/02/2022 9:27 AM Care Teams Auger Press Operator Relationship Specialty [place] [address] [address] PCP - General Internal Medicine 04/06/24 Ann Serrano MD Referring Physician Endocrinology Diabetes & Metabolism 06/08/20
--- OUTSIDE RECORDS SUMMARY | 2025-02-17 03:09 | XMS_ITS | Encounter Summary ---
Author Organization [facility] Health Address [address] [facility] [place] [address] Care Team Providers Care Visualization Developer Name Role Phone Tiffany Cox MD Primary Care Provider Unavailable Kishor Saleh MD Primary Care Provider Encounter Details Date Type Department Care Team (Late st Contact Info) Description 07/03/2023 Lab Requisition [facility] [address] [place] [id number] [place] [address] [facility] [address] [place] [address] Social History Tobacco Use Types Packs/Day Years Used Date Smoking Tobacco: Never Assessed Comments Unknown Sex and Gender Information Value Date Recorded Sex Assigned at Not on file Legal Sex Female 4:50 AM BINGO USHER Gender Identity Not on file Sexual Orientation Not on file documented as of this encounter Plan of Treatment Not on file documented as of this encounter Visit Diagnoses Not on filedocumented in this encounter Additional Health Concerns Infection Onset Date Last Indicated Resolved Time COVID-19 Under Investigation 08/13/2024 08/13/2024 08/13/2024 11:30 PM BINGO USHER documented as of this encounter Care Teams Visualization Developer Relationship Specialty Start Date End Date Tiffany Cox MD PCP - General Internal Medicine 05/16/13 07/30/23 Kishor Saleh MD [address] [place] [address] DR [address] [place] [address] PCP - General Internal Medicine 07/31/23 documented as of this encounter
--- OUTSIDE RECORDS SUMMARY | 2025-02-17 03:09 | XMS_ITS | Encounter Summary ---
Author Organization [facility] Address [address] [place] [address] Phone Care Team Providers Care Seed Corn Production Manager Name Role Phone Ann Serrano MD Unavailable [phone] Lynn Rodriguez MD Primary Care Provider Encounter Details Date Type Department Care Team (Late st Contact Info) Description 01/09/2025 Results Follow-Up [facility] Endocrinology Metabolism and Lipid [address] [facility] 13th [place] [address] [place] [phone] Shirley Teixeira PA [address] [place] [address] Vitamin D 25 hydroxy, Vitamin B12, TSH, Additional followed-up results: 6 Social History Tobacco Use Types Packs/Day Years [...] points, staff should administer the PHQ-9) 0 12/21/2024 Comments No Sex and Gender Information Value Date Recorded Sex Assigned at Not on file Legal Sex Female 11:54 PM NUCLEAR REACTOR OPERATOR Gender Identity Female 09/19/2020 8:37 AM NUCLEAR REACTOR OPERATOR Sexual Orientation Straight 09/19/2020 8: 37 AM NUCLEAR REACTOR OPERATOR documented as of this encounter Ordered Prescriptions Prescription Sig Dispense Quantity Refills Last Filled Start Date End Date atorvastatin (LIPITOR) 40 mg tabletIndications:Un controlled type 2 diabetes mellitus with hyperglycemia (HCC),Mixed hyperlipidemia Take 1 tablet (40 mg total) by mouth daily 90 tablet 3 01/09/2025 documented in this encounter Plan of Treatment Upcoming Encounters Date Type Department Care Team (Latest Contact Info) Description 04/27/2025 7:30 AM CDT Hospital Encounter [address] [address]dA Garcia MD [address] [place] [address] [address] [place] [address] 04/27/2025 7:30 AM CDT - 04/27/2025 8:00 AM CDT Surgery [address] [address]Ad Garcia MD [address] [place] [address] [address] [place] [address] ESOPHAGOGASTRODUODENOSCOPY Scheduled Orders Name Type Priority Associated Diagnoses Orde r Schedule Hepatic function panel Lab Routine Elevated liver function tests Expected: 01/12/2025, Expires: 01/09/2026 Scheduled Procedures Name Priority Associated Diagnoses Date/Ti co ESOPHAGOGASTRODUODENOSCOPY Dysphagia, unspecified type 04/27/2025 7:30 AM CDT documented as of this encounter Visit Diagnoses Diagnosis Dysphagia- Primary Elevated liver function tests- Primary Other abnormal blood chemistry Uncontrolled type 2 diabetes mellitus with hyperglycemia (HCC) Mixed hyperlipidemia Dysphagia, unspecified type documented in this encounter Discontinued Medications Medication Sig Discontinue Reason Start Date End Da te atorvastatin (LIPITOR) 20 mg tablet TAKE 1 TABLET BY MOUTH ONCE DAILY 01/04/2025 01/09/2025 documented as of this encounter Care Teams Seed Corn Production Manager Relationship Specialty [place] [address] [facility] [address], [place] [address] PCP - General Internal Medicine 04/06/24 Ann Serrano MD Referring Physician Endocrinology Diabetes & Metabolism 06/08/20 documented as of this encounter
--- OUTSIDE RECORDS SUMMARY | 2025-02-17 03:09 | XMS_ITS | Encounter Summary ---
Author Organization [facility] Address [address] [place] [address] Phone Care Team Providers Care Snowsport Instructor Name Role Phone Ann Serrano MD Unavailable [phone] Lynn Rodriguez MD Primary Care Provider Encounter Details Date Type Department Care Team (Late st Contact Info) Description 01/24/2025 Results Follow-Up [facility] Rheumatology [address] [facility] 5th [place] [address] [place] [address] Lucian Trinidad MD PhD [address] [place] [address] XR Wrist Right 3 or More Views Social History Tobacco Use Types Packs/Day [...] on file Legal Sex Female 11:54 PM SLIP FEEDER Gender Identity Female 09/19/2020 8:37 AM SLIP FEEDER Sexual Orientation Straight 09/19/2020 8: 37 AM SLIP FEEDER documented as of this encounter Plan of Treatment Upcoming Encounters Date Type Department Care Team (Latest Contact Info) Description 04/27/2025 7:30 AM CDT Hospital Encounter [address] [address] Ad Camacho MD [address] [facility] [address] [place] [address] 04/27/2025 7:30 AM CDT - 04/27/2025 8:00 AM CDT Surgery [address] [address] Ad Camacho MD [address] [facility] [address] [place] [address] ESOPHAGOGASTRODUODENOSCOPY Scheduled Procedures Name Priority Associated Diagnoses Date/Ti wv ESOPHAGOGASTRODUODENOSCOPY Dysphagia, unspecified type 04/27/2025 7:30 AM CDT documented as of this encounter Visit Diagnoses Not on filedocumented in this encounter Care Teams Snowsport Instructor Relationship Specialty [place] [address] [address] PCP - General Internal Medicine 04/06/24 Ann Serrano MD Referring Physician Endocrinology Diabetes & Metabolism 06/08/20 documented as of this encounter
--- OUTSIDE RECORDS SUMMARY | 2025-02-17 03:09 | XMS_ITS | Encounter Summary ---
Author Organization [facility] Address [address] [place] [address] Care Team Providers Care Grain Blender Name Role Phone Ann Serrano MD Unavailable [phone] Lynn Rodriguez MD Primary Care Provider Encounter Details Date Type Department Care Team (Late st Contact Info) Description 01/09/2025 Results Follow-Up [facility] Sleep Medicine at [address] [place] [address] Iqra Jensen MD [address] [place] [address] [address] [place] [address] Ferritin Social History Tobacco Use Types Packs/Day Years [...] on file Legal Sex Female 11:54 PM YOUTH COORDINATOR Gender Identity Female 09/19/2020 8:37 AM YOUTH COORDINATOR Sexual Orientation Straight 09/19/2020 8: 37 AM YOUTH COORDINATOR documented as of this encounter Miscellaneous Notes * Result Encounter Note - Amada Paredes MA - 01/10/2025 8:49 AM CDT Pt informed. Sent message with medication she should take. * Result Encounter Note - Iqra Jensen MD - 01/09/2025 5:30 PM CDT Let patient know that the ferritin level was low and to start taking OTC Ferrous sulfate 325 mg every other day with either orange juice or Vitamin C 100 or 200mg. Will recheck it in 3 months. documented in this encounter Plan of Treatment Upcoming Encounters Date Type Department Care Team (Latest Contact Info) Description 04/27/2025 7:30 AM CDT Hospital Encounter [address] [address] Ad Camacho MD [address] [place] [address] [address] [place] [address] 04/27/2025 7:30 AM CDT - 04/27/2025 8:00 AM CDT Surgery [address] [address] Ad Camacho MD [address] [place] [address] [address] [place] [address] ESOPHAGOGASTRODUODENOSCOPY Scheduled Procedures Name Priority Associated Diagnoses Date/Ti hi ESOPHAGOGASTRODUODENOSCOPY Dysphagia, unspecified type 04/27/2025 7:30 AM CDT documented as of this encounter Visit Diagnoses Not on filedocumented in this encounter Care Teams Grain Blender Relationship Specialty [place] [address] [address] PCP - General Internal Medicine 04/06/24 Ann Serrano MD Referring Physician Endocrinology Diabetes & Metabolism 06/08/20 documented as of this encounter
--- OUTSIDE RECORDS SUMMARY | 2025-02-17 03:09 | XMS_ITS | Encounter Summary ---
Author Organization [facility] Address [address] [place] [address] Phone Care Team Providers Care Spring Assembler Supervisor Name Role Phone Kishor Saleh MD Primary Care Provider [phone] Ann Serrano MD Unavailable [phone] No, Physician Primary Care Provider [phone] Kishor Saleh MD Primary Care Provider [phone] Lynn Rodriguez MD Primary Care Provider Encounter Details Date Type Department Care Team (Late st Contact Info) Description 09/30/2017 Orders Only [facility] ProviderStephenie MD [address] [place] [address] Social History Tobacco Use Types Packs/Day Years Used Date Smoking Tobacco: Never Smokeless Tobacco: Never Alcohol Use Standard Drinks/Week Comments No 0 (1 standard drink = 0.6 oz pur e alcohol) Comments Unknown Sex and Gender Information Value Date Recorded Sex Assigned at Not on file Legal Sex Female 11:54 PM AUTO DAMAGE INSURANCE APPRAISER Gender Identity Female 09/19/2020 8:37 AM AUTO DAMAGE INSURANCE APPRAISER Sexual Orientation Straight 09/19/2020 8: 37 AM AUTO DAMAGE INSURANCE APPRAISER documented as of this encounter Plan of Treatment Upcoming Encounters Date Type Department Care Team (Latest Contact Info) Description 04/27/2025 7:30 AM CDT Hospital Encounter [facility] [address] [place] [address] Ad Camacho MD [address] [place] [address] [address] [place] [address] 04/27/2025 7:30 AM CDT - 04/27/2025 8:00 AM CDT Surgery [facility] [address] [place] [address] Ad Camacho MD [address] [place] [address] [place] [address] [address] ESOPHAGOGASTRODUODENOSCOPY Scheduled Procedures Name Priority Associated Diagnoses Date/Ti me ESOPHAGOGASTRODUODENOSCOPY Dysphagia, unspecified type 04/27/2025 7:30 AM CDT documented as of this encounter Procedures Procedure Name Priority Date/Time Associated Diagnosis Comments DISCHARGE LABORATORY CUMULATIVE REPORT 09/30/2017 12:00 AM AUTO DAMAGE INSURANCE APPRAISER documented in this encounter Results * DISCHARGE LABORATORY CUMULATIVE REPORT (09/30/2017 12:00 AM AUTO DAMAGE INSURANCE APPRAISER) Narrative 09/30/2017 12:00 AM AUTO DAMAGE INSURANCE APPRAISER Ordered by an unspecified provider. us Historical Provider LAB BLOOD ORDERABLES Flora l Result documented in this encounter Visit Diagnoses Not on filedocumented in this encounter Additional Health Concerns Infection Onset Date Last Indicated Resolved Time COVID: Suspected 08/13/2022 08/13/2022 08/13/2022 1:16 PM AUTO DAMAGE INSURANCE APPRAISER COVID: Suspected 11/07/2024 11/07/2024 11/07/2024 2:20 PM CDT documented as of this encounter Care Teams Spring Assembler Supervisor Relationship Specialty Start Date End Date Kishor Saleh MD PCP - General 09/28/08 11/16/23 No, Physician PCP - General 11/17/23 12/28/23 Kishor Saleh MD [address] [address] PCP - General Internal Medicine 12/29/23 04/05/24 [place] [address] [facility] [address] [address] PCP - General Internal Medicine 04/06/24 Ann Serrano MD Referring Physician Endocrinology Diabetes & Metabolism 06/08/20 documented as of this encounter
--- OUTSIDE RECORDS SUMMARY | 2025-02-17 03:09 | XMS_ITS | Encounter Summary ---
Author Organization [facility] Healthcare Address [address] [place] [address] Care Team Providers Care Electronic Lab Technician Name Role Phone Ann Serrano MD Unavailable [phone] Lynn Rodriguez MD Primary Care Provider Reason for Visit * Reason Comments PT Treatment * Consultation (Routine) - Authorized Specialty Diagnoses / Procedures Referred By Contmary anne sosa Referred To Contact Physical Therapy Diagn[place] [address] [facility] [address] [place] [address] Phone: tel: fax: [facility] Rehabilitation Services at [address] [address] Phone: tel: fax: Referral ID Status Reason Start Date Expiration Date Visits Requested Visits Authorized [id number] Authorized Specialty Services Required 12/21/2024 01/20/2026 24 24 Encounter Details Date Type Department Care Team (Late st Contact Info) Description 02/16/2025 9:00 AM CDT Therapy [facility] Rehabilitation Services at [address] [address] Adelina Little, PT Lymphedema (Primary Dx); Decreased functional mobility and endurance Social History Tobacco Use Types Packs/Day Years [...] on file Legal Sex Female 11:54 PM STAFF ANESTHETIST Gender Identity Female 09/19/2020 8:37 AM STAFF ANESTHETIST Sexual Orientation Straight 09/19/2020 8: 37 AM STAFF ANESTHETIST documented as of this encounter Progress Notes * Adelina Little, PT - 02/16/2025 9:00 AM CDT [facility] Physical Therapy Visit Daily PT Treatment Note Plan of Care Camila Huitron 1975 49 y.o. female ICD-10-CM 1. Lymphedema I89.0 2. Decreased functional mobility and endurance Z74.09 Patient Name and Birthday verified. Yes Subjective: Patient denies falls since last visit. She ordered Crocs which were supposed to come today but have not yet arrived. She notes she is now on metropolol for her increased heart rate and feels it is getting better. She noted she feels her thigh pieces are loose. Objective: Arrives in sandals wearing both lower extremity garments (above and below knee) and carrying foot piece (wearing sandals) Vitals at beginning of session: Heart rate 111 pulse ox 99% Pre-MLD: Right distal han at 3 cm above lateral malleolus: 30.8 cm. Post-MLD: 30.8 cm. Pre-MLD for garment adjustment: Right calf at 5 cm below knee joint line: 48.7 cm at largest point. Right distal thigh: 65.7 cm. Right proximal thigh: 78.5 cm Left distal calf post-MLD for garment adjustment: 61.7 cm. Left proximal thigh: 77.8 Treatment Provided: Total Therapy Visits: 11 Lynn Rodriguez, * Surgery: --- Eval Date PT Treatment Started: 12/29/2024 Last Progress Note: 01/30/25 (8th visit) Visit: --- POC: Epic - 2x/week (12wks) - 03/23/2025 Sent Progress Note Due: Visit 18- Precautions: -- MD Specific Treatment: -- Involved Side: BILATERAL Initials [place] [facility] [place]25 [facility] [place]/30/25 02/07/2025 NE 02/09/25 NE 02/16/25 # of visits / Approved 02/23 03/26 04/26 05/26 06/26 [facility] - no auth needed Exp: Start Time / End Time 12:00 PM / 1:00 PM 12:00 PM / 1:00 PM 12:05 PM 1:05 PM 09:05 / 09:58 09:05 / 09:58 Late d/t No close parking available Timed/Total Treatment Minutes 55 / 55 45 /45 60/60 53 / 53 53 / 53 Pain In / Pain Out 2-3 / 2-3 Back 5 / 4 4/3 R wrist 0 / 0 Back 4 / 3 R Leg/Knee 4 / 3 R leg 6/6 Back 6/6 POC Progress note MLD Therapist 2. Patient/family return demonstration 2) supine with bolster:clavicles, axillae, and superficial and deepabdomen, -seated axillo -inguinal anastomosis, left lower leg,foot(leg on the table knee flexed, hip lat rotated b 1)supine with bolster:clavicles, axillae, and superficial and deepabdomen,ant thighs, -prone with bolster: post thighs,ant/post lower legs and feet including sustained hold prox to areaof redness on R post leg 1.Supine: Inguino-axillo, inguinal, RLE. Prone: R posterior thigh, calf. Lposterior thigh, calf. Interinguinal anastamoses. 2.Supine: Axillary, abdominal. Seated: Supraclavicular ,axillo -inguinal anastomosis, left lower leg,foot(leg on the table knee flexed, hip lat rotated) 1.Supine: Inguino-axillo, inguinal, RLE. Prone: R posterior thigh, calf. 2.Supraclavicular, axillary, abdominal, inguino-axillo return demo, inguinal. Compression Advised pt bring in compression when it arrives PT cut and fit lower leg and PAc bands,elisa -pt donned iend of visit with no VC Trimmed length and width of bilateral lower legs. Measured and fit bilateral thigh Patient donned right with verbal cues, and left independently Discussed shoes compatible with PAC band--[facility]. [facility] with heel strap, velcro strap sandals Patient did not have time to don this morning so left at home Fitted thigh piece based upon new measurements Practice donning/doffin upper/lowe leg piece with education on horizontal straps, avoiding gapping,and consistent pressure Exercises to support lymphatic system Shoulder circles recipocal together or apart forward and backward-make motion as big as you can Pillow assisted deep breathing Wide leg side bend left/right Wide leg trunk rotation left right Stand at a wall raise up on your heels then toes. Frisian floor Pump ankles up and down. Spread and curl toes 1.8x 3.8x to L 4.8x to R/L 6.10x with elisa UE support 7.10x R/LLE 8.10x 9.10x 1.Standing 10x 7.10x 8.10x Educated 12/29/2024 patient on brief overview components of lymphatic care (initial) 01/11 pt signed release for [employer]steps to get compression through insurance 02/09: Educated patient to bring in compression even if she does not have time to don/doff it so that it can be adjusted by size HOme program: MLD clavicles, axillae, and abdomen 01/11/25 MLD upper body, thighs, post knees, axillo-inguinal anastomoses Therapist confirmed patient understanding of explanations and instructions at the end of therapy session: Yes Prognosis: Excellent to Good All Goals New as of 12/29/2024 Pt. Goals: To be achieved by DC . Be able to work craft shows on a regular basis -Not assessed 01/30/25 STGs to be achieved by 10th visit Treatment Goals Pt to achieve a score of 27 on the LLIS - Met 01/30/25 Patient to be independent in deep breathing for improved lymphatic flow with/without instruction sheet -Not met 01/30/25 Patient to be independent in self MLD of clavicular nodes and abdomen with/without instruction sheet -Not met 01/30/25 Decrease BILATERAL involved limb volume by 10% - Partially Met = 5% 01/30/25 Improve LEFS to 50% Met 01/30/25 Independent in don/doff garment -Not met 01/30/25 LTGs to be achieved by 03/23/2025 Pt to achieve a score of 20 on the LLIS Patient to be independent in self MLD with/without instruction sheet Patient to be independent in HEP to promote lymphatic flow with/without instruction sheet Stable limb volume Independent in don/doff maintenance garment. Safe balance score on DGI Independent in Hep lymphatic flow, strength and endurance Patient/family involved in setting goals. Patient/family agrees with goals and treatment plan. Assessment: This session incorporated continued training on donning/doffing garment with verbal, visual, and tactile cues to avoid gaps and for horizontal strap placement. Also included MLD to lower leg on right side (wearing gloves due to weeeping wounds) in supine and prone in addition to other MLD. Plan: Next session: Monitor fit of reduction garment, and modify as needed. Review MLD and review exercises to promote lymphatic flow. Might teach self-rib rocking for lymphatic flow and diaphragm ifindicated. Adelina Little, PT documented in this encounter Plan of Treatment Upcoming Encounters Date Type Department Care Team (Latest Contact Info) Description 04/27/2025 7:30 AM CDT Hospital Encounter [address] [address] Ad Camacho MD [address] [place] [address] [place] [address] 04/27/2025 7:30 AM CDT - 04/27/2025 8:00 AM CDT Surgery [address] [address] Ad Camacho MD [address] [facility] [place] [address] ESOPHAGOGASTRODUODENOSCOPY Scheduled Procedures Name Priority Associated Diagnoses Date/Ti or ESOPHAGOGASTRODUODENOSCOPY Dysphagia, unspecified type 04/27/2025 7:30 AM CDT documented as of this encounter Visit Diagnoses Diagnosis Dysphagia- Primary Lymphedema- Primary Other noninfectious lymphedema Decreased functional mobility and endurance Dysphagia, unspecified type documented in this encounter Care Teams Electronic Lab Technician Relationship Specialty [place] [address] [address] PCP - General Internal Medicine 04/06/24 Ann Serrano MD Referring Physician Endocrinology Diabetes & Metabolism 06/08/20 documented as of this encounter
--- OUTSIDE RECORDS SUMMARY | 2025-02-17 03:09 | XMS_ITS | Encounter Summary ---
Author Organization [facility] Health Address [address] [place] [address] Care Team Providers Care Vapor Coater Name Role Phone Tiffany Cox MD Primary Care Provider Unavailable Kishor Saleh MD Primary Care Provider [phone] Encounter Details Date Type Department Care Team (Late st Contact Info) Description 07/03/2023 Lab Requisition [facility] - DermPath Lab [address] [place] [id number] [place] [address] [facility] [address] [address] [place] [address] Social History Tobacco Use Types Packs/Day Years Used Date Smoking Tobacco: Never Assessed Comments Unknown Sex and Gender Information Value Date Recorded Sex Assigned at Not on file Legal Sex Female 4:50 AM HEAD BUTLER Gender Identity Not on file Sexual Orientation Not on file documented as of this encounter Plan of Treatment Not on file documented as of this encounter Visit Diagnoses Not on filedocumented in this encounter Additional Health Concerns Infection Onset Date Last Indicated Resolved Time COVID-19 Under Investigation 08/13/2024 08/13/2024 08/13/2024 11:30 PM HEAD BUTLER documented as of this encounter Care Teams Vapor Coater Relationship Specialty Start Date End Date Tiffany Cox MD PCP - General Internal Medicine 05/16/13 07/30/23 Kishor Saleh MD [address] [place] [address] DR [address] [place] [address] PCP - General Internal Medicine 07/31/23 documented as of this encounter
--- OUTSIDE RECORDS SUMMARY | 2025-02-17 03:09 | XMS_ITS | Encounter Summary ---
Author Organization [facility] Address [address] [facility] [place] [address] Care Team Providers Care Chef Manager Name Role Phone Tiffany Cox MD Primary Care Provider Unavailable Kishor Saleh MD Primary Care Provider Encounter Details Date Type Department Care Team (Late st Contact Info) Description 07/03/2023 Lab Requisition [facility] - DermPath Lab [address] [place] [address] [place] [address] [address] Social History Tobacco Use Types Packs/Day Years Used Date Smoking Tobacco: Never Assessed Comments Unknown Sex and Gender Information Value Date Recorded Sex Assigned at Not on file Legal Sex Female 4:50 AM RECLAMATION ENGINEER Gender Identity Not on file Sexual Orientation Not on file documented as of this encounter Plan of Treatment Not on file documented as of this encounter Procedures Procedure Name Priority Date/Time Associated Diagnosis Comments IMMUNOFLUORESCENT STUDY DERM Routine 07/01/2023 3:33 AM RECLAMATION ENGINEER documented in this encounter Results * IMMUNOFLUORESCENT STUDY DERM (07/01/2023 3:33 AM RECLAMATION ENGINEER) Case Report Dermatopathol ogy Report Case: [id number] Authorizing Provider: Kendrick Christopher MD Collected: 07/01/2023 03:33 AM Ordering Location: [facility] DermPath Lab Received: 07/03/2023 12:13 PM Pathologist: Bella Schwab MD Specimen: Skin, right superior han 3:46 PM [facility] DERMATOPATHOLOGY LABORATORY Final Diagnosis Specimen A. SKIN, right superior han: COLLOID BODIES (L98.9) (see microscopic description) (see fixed tissue results) 3 3:46 PM [facility] DERMATOPATHOLOGY LABORATORY at 1546 RECLAMATION ENGINEER Direct Immunofluorescence Report - Specimen A Specimen A IgA IgM IgG C3 CollV Fibrinogen Epidermis Negative Negative Negative Negative Negative Negative Basement Membrane Negative Negative Negative Negative 2+ Negative Vessels Negative Negative Negative Negative 2+ Negative Interstitium Colloid Colloid Colloid Negative Negative Non specific 3 3:46 PM [facility] DERMATOPATHOLOGY LABORATORY Clinical History Rash; R/O Leukocytoclas tic Vasculitis, Livedo Reticularis 3 3:46 PM [facility] DERMATOPATHOLOGY LABORATORY Gross Description Specimen A: Received is one Jatinder's media filled container labeled with the patient's name and designated right superior han. The specimen consists of a punch biopsy measuring 5x4x4 mm. The specimen is submitted in whole for direct immunofluores cence testing. 3:46 PM [facility] DERMATOPATHOLOGY LABORATORY Microscopic Description [...] See fixed tissue results. 3 3:46 PM [facility] DERMATOPATHOLOGY LABORATORY Disclaimer An [...] purposes. Billing Codes Specimen Charges Stain Charges 96918 [id number] 1 1 1 1 1 1 3 3:46 PM RECLAMATION ENGINEER DERMATOPATHOLOGY LABORATORY Embedded Images 3 3:46 PM RECLAMATION ENGINEER DERMATOPATHOLOGY LABORATORY Pathology/Cytolo gy TISSUE SPECIMEN FROM SKIN / Unknown 07/01/2023 3:33 AM RECLAMATION ENGINEER 07/03/2023 12:13 PM RECLAMATION ENGINEER Kendrick Christopher MD LAB - PATHOLOGY/CYTOLOGY O RDERABLES Final Result DERMATOPATHOLOGY LABORATORY [facility] - Department of Dermatology [facility] Medicine [address] [place] [address], [address] [phone] documented in this encounter Visit Diagnoses Not on filedocumented in this encounter Additional Health Concerns Infection Onset Date Last Indicated Resolved Time COVID-19 Under Investigation 08/13/2024 08/13/2024 08/13/2024 11:30 PM RECLAMATION ENGINEER documented as of this encounter Care Teams Chef Manager Relationship Specialty Start Date End Date Tiffany Cox MD PCP - General Internal Medicine 05/16/13 07/30/23 Kishor Saleh MD [address] [place] [address] DR [address] [place] [address] PCP - General Internal Medicine 07/31/23 documented as of this encounter
--- OUTSIDE RECORDS SUMMARY | 2025-02-17 03:09 | XMS_ITS | Encounter Summary ---
Author Organization [facility] Health Address [address] [place] [address] Care Team Providers Care Real Estate Salesperson Name Role Phone Tiffany Cox MD Primary Care Provider Unavailable Kishor Saleh MD Primary Care Provider Encounter Details Date Type Department Care Team (Late st Contact Info) Description 07/03/2023 Lab Requisition [facility] - DermPath Lab [address] [place] [phone] [place] [address] [facility] [address] [address] [place] [address] Social History Tobacco Use Types Packs/Day Years Used Date Smoking Tobacco: Never Assessed Comments Unknown Sex and Gender Information Value Date Recorded Sex Assigned at Not on file Legal Sex Female 4:50 AM SYSTEMS TESTER Gender Identity Not on file Sexual Orientation Not on file documented as of this encounter Plan of Treatment Not on file documented as of this encounter Visit Diagnoses Not on filedocumented in this encounter Additional Health Concerns Infection Onset Date Last Indicated Resolved Time COVID-19 Under Investigation 08/13/2024 08/13/2024 08/13/2024 11:30 PM SYSTEMS TESTER documented as of this encounter Care Teams Real Estate Salesperson Relationship Specialty Start Date End Date Tiffany Cox MD PCP - General Internal Medicine 05/16/13 07/30/23 Kishor Saleh MD [address] [place] [address] DR [address] [place] [address] PCP - General Internal Medicine 07/31/23 documented as of this encounter
--- OUTSIDE RECORDS SUMMARY | 2025-02-17 03:09 | XMS_ITS | Encounter Summary ---
Author Organization [facility] Healthcare Address [address] [place] [address] Care Team Providers Care Slubber Frame Changer Name Role Phone Ann Serrano MD Unavailable [phone] Lynn Rodriguez MD Primary Care Provider Encounter Details Date Type Department Care Team (Late st Contact Info) Description 01/03/2025 Results Follow-Up [facility] Medical Group Pulmonary at [address] [place] [address] [address] [place] [address] Transthoracic Echo (TTE) Complete W Doppler/CF Social History Tobacco Use Types Packs/Day Years [...] should administer the PHQ-9) 0 12/21/2024 Comments Unknown Sex and Gender Information Value Date Recorded Sex Assigned at Not on file Legal Sex Female 11:54 PM IMAGING SCHEDULER Gender Identity Female 09/19/2020 8:37 AM IMAGING SCHEDULER Sexual Orientation Straight 09/19/2020 8: 37 AM IMAGING SCHEDULER documented as of this encounter Plan of Treatment Upcoming Encounters Date Type Department Care Team (Latest Contact Info) Description 04/27/2025 7:30 AM CDT Hospital Encounter [address] [address] Ad Camacho MD [address] [facility] [address] [place] [address] 04/27/2025 7:30 AM CDT - 04/27/2025 8:00 AM CDT Surgery [address] [address] Ad Camacho MD [address] [facility] [address] [place] [address] ESOPHAGOGASTRODUODENOSCOPY Scheduled Procedures Name Priority Associated Diagnoses Date/Ti ga ESOPHAGOGASTRODUODENOSCOPY Dysphagia, unspecified type 04/27/2025 7:30 AM CDT documented as of this encounter Visit Diagnoses Not on filedocumented in this encounter Care Teams Slubber Frame Changer Relationship Specialty [place] [address] [address] PCP - General Internal Medicine 04/06/24 Ann Serrano MD Referring Physician Endocrinology Diabetes & Metabolism 06/08/20 documented as of this encounter
--- OUTSIDE RECORDS SUMMARY | 2025-02-17 03:09 | XMS_ITS | Encounter Summary ---
Author Organization [facility] Address [address] [facility] [place] [address] Care Team Providers Care Shoemaker Apprentice Name Role Phone Tiffany Cox MD Primary Care Provider Unavailable Kishor Saleh MD Primary Care Provider Encounter Details Date Type Department Care Team (Late st Contact Info) Description 07/03/2023 Lab Requisition [facility] - DermPath Lab [address] [place] [address] [place] [address] [address] Social History Tobacco Use Types Packs/Day Years Used Date Smoking Tobacco: Never Assessed Comments Unknown Sex and Gender Information Value Date Recorded Sex Assigned at Not on file Legal Sex Female 4:50 AM GUNSTOCK SPRAY UNIT ADJUSTER Gender Identity Not on file Sexual Orientation Not on file documented as of this encounter Plan of Treatment Not on file documented as of this encounter Procedures Procedure Name Priority Date/Time Associated Diagnosis Comments DERMATOPATHOLOGY Routine 07/01/2023 3:33 AM GUNSTOCK SPRAY UNIT ADJUSTER documented in this encounter Results * DERMATOPATHOLOGY (07/01/2023 3:33 AM GUNSTOCK SPRAY UNIT ADJUSTER) Case Report Dermatopathology Report Case: [id number] Authorizing Provider: Kendrick Christopher MD Collected: 07/01/2023 03:33 AM Ordering Location: [facility] DermPath Lab Received: 07/03/2023 12:12 PM Pathologist: Bella Schwab MD Specimen: Skin, right inferior knee 3:45 PM [facility] DERMATOPATHOLOGY LABORATORY Final Diagnosis Specimen A. SKIN, right inferior knee: STASIS DERMATITIS (L30.8) DERMAL FIBROSIS (L90.5) (see microscopic description) 3 3:45 PM [facility] DERMATOPATHOLOGY LABORATORY at [address] GUNSTOCK SPRAY UNIT ADJUSTER Clinical History Rash; R/O Leukocytoclastic Vasculitis, Livedo Reticularis 3 3:45 PM [facility] DERMATOPATHOLOGY LABORATORY Gross Description Specimen A: Received is one formalin filled container labeled with the patient's name and designated right inferior knee. The specimen consists of a punch biopsy measuring 6x5x6 mm. Jar 0. 3:45 PM [facility] DERMATOPATHOLOGY LABORATORY Microscopic Description Specimen [...] sections were obtained and reviewed. 3:45 PM [facility] DERMATOPATHOLOGY LABORATORY Disclaimer An external and internal positive and negative controls are appropriate for the histochemical, immunohistochemical and immunofluorescence stain(s) in this case (if any), except where stated explicitly. The performance characteristics of the stain(s) cited in this report were developed and its performance characteristic determined by the Dermatopathology Laboratory at [facility], directed by Dr. Arnol Perea. These tests need not be, and therefore are not, approved by the [place] Food and Drug Administration. The tests are used for clinical purposes. Billing Codes Specimen Charges Stain Charges [id number] 1 [id number] 1 3 3:45 PM [facility] DERMATOPATHOLOGY LABORATORY Embedded Images 3 3:45 PM [facility] DERMATOPATHOLOGY LABORATORY Pathology/Cytolo gy TISSUE SPECIMEN FROM SKIN / Unknown 07/01/2023 3:33 AM GUNSTOCK SPRAY UNIT ADJUSTER 07/03/2023 12:12 PM GUNSTOCK SPRAY UNIT ADJUSTER Kendrick Christopher MD LAB - PATHOLOGY/CYTOLOGY O RDERABLES Final Result DERMATOPATHOLOGY LABORATORY [facility] - Department of Dermatology [facility] Medicine [address] [place] [address], [address] [phone] documented in this encounter Visit Diagnoses Not on filedocumented in this encounter Additional Health Concerns Infection Onset Date Last Indicated Resolved Time COVID-19 Under Investigation 08/13/2024 08/13/2024 08/13/2024 11:30 PM GUNSTOCK SPRAY UNIT ADJUSTER documented as of this encounter Care Teams Shoemaker Apprentice Relationship Specialty Start Date End Date Tiffany Cox MD PCP - General Internal Medicine 05/16/13 07/30/23 Kishor Saleh MD [address] [place] [address] [address] [address] [place] [address] PCP - General Internal Medicine 07/31/23 documented as of this encounter
--- OUTSIDE RECORDS SUMMARY | 2025-02-17 03:09 | XMS_ITS | Clinical Summary ---
Author Organization [facility] Address [address] [place] [address] Care Team Providers Care Stunt Driver Name Role Phone Kishor Saleh MD Primary Care Provider Source Comments [facility],non-owned Affiliates and Associated Physician Practices is amultiple site organization consisting of ambulatory clinics and hospital sitesin [place], [place], [place] and [place]. This disclosure is being madepursuant to the Care Everywhere program and may not contain all information available regarding this patient. Last updated 18.[facility] [employer] Allergies Active Allergy Reactions Criticality Noted Date [...] fluticasone propionate (Flonase) 50 MCG/ACT nasal spray [place] 2 (two) sprays into each nostril once [...] vitamin D, ergocalciferol , (Drisdol) 1.25 MG (66374 UT) capsule Take 1 (one) capsule by [...] were you homeless or living in a group home (including now)? No 08/15/2024 Comments Unknown Sex and Gender Information Value Date Recorded Sex Assigned at Not on file Legal Sex Female 4:50 AM LATEXER Gender Identity Not on file Sexual Orientation Not on file Last Filed Vital Signs Vital Sign Reading Time Taken Comments Blood Pressure 154/92 08/18/2024 12:25 PM LATEXER Pulse 102 08/18/2024 12:25 PM LATEXER Temperature 36.7 C (98.1 F) 08/18/2024 12:25 PM LATEXER Respiratory Rate 23 08/18/2024 12:2 5 PM LATEXER Oxygen Saturation 90% 08/18/2024 12: 25 PM LATEXER Inhaled Oxygen Concentration 21% 08/18/2024 2 :00 PM LATEXER Weight 132.6 kg (292 lb 4.8 oz) 08/18/2024 4:00 AM LATEXER Height 167.6 cm (5' 6) 08/13/2024 5:14 PM LATEXER Body Mass Index 47.18 08/13/2024 5:14 PM LATEXER Plan of Treatment Health Maintenance Due Date Last Done Comments COLOGUARD (AGES 45-75) - COLON CA SCREENING 1976 CT COLONOGRAPHY - COLON CA SCREENING 1976 FIT - COLON CA SCREENING 1976 FLEX SIG - COLON CA SCREENING 1976 HIV SCREENING 1991 HEPATITIS C SCREENING 06/09/1994 DTAP/TDAP/TD VACCINES (1 - Tdap) 1995 HEPATITIS B VACCINE (1 of 3 - 19+ 3-dose series) 1995 PNEUMOCOCCAL VACCINE (1 of 2 - PCV) 1995 PAP SMEAR 1997 COVID-19 VACCINE ( season) 2024 05/13/2023, 05/23/2022, 06/20/2021, Additional history exists DEPRESSION SCREENING 08/03/2024 DIABETES - URINE PROTEIN SCREENING 08/03/2024 DIABETES RETINOPATHY SCREENING 08/14/2024 DIABETES-FOOT EXAM WITH MONOFILAMENT 08/14/2024 DIABETES-HGB A1C 02/11/2025 08/14/2024, 06/2024, 11/17/2023 INFLUENZA VACCINE (#1) 2025 , 05/23/2022, 05/16/2021, Additional history exists DIABETES-SERUM CREATININE 08/17/20252024, 08/16/2024, 08/15/2024, Additional history exists MAMMOGRAM 12/28/2025 12/29/2023, 12/02, 02/25/2023, Additional history exists ZOSTER VACCINE (1 of 2) 2026 COLON MONITORING 04/02/2032 04/02/2022 COLONOSCOPY - COLON CA SCREENING 04/02/2032 04/02/2022 [...] (CALCIUM TOTAL) AM Draw 08/17/2024 4:16 AM LATEXER HEMOGLOBIN A1C Routine 08/14/2024 3:27 AM LATEXER from Last 3 Months or Most Recently Relevant to Health Maintenance Results * (ABNORMAL) BASIC METABOLIC PANEL (CALCIUM TOTAL) (08/17/2024 4:16 AM LATEXER) Glucose 139(H) 70 - 99 mg/dL 08/17/2024 4:53 AM [facility]ER [facility] Sodium 140 136 - 145 mmol/L 08/17/2024 4:53 AM LATEXER [facility] Potassium 3.5 3.5 - 5.1 mmol/L 08/17/2024 4:53 AM LATEXER [facility] Chloride 108(H) 98 - 107 mmol/L 08/17/2024 4:53 AM [facility]EXER [facility] CO2 24 22 - 29 mmol/L 08/17/2024 4:53 AM [facility]EXER [facility] Calcium 8.9 8.4 - 10.4 mg/dL 08/17/2024 4:53 AM [facility] Anion Gap 8 6 - 16 mmol/L 08/17/2024 4:53 AM [facility] BUN 15 5.3 - 18.7 mg/dL 08/17/2024 4:53 AM [facility] Creatinine 0.65 0.57 - 1.11 mg/dL 08/17/2024 4:53 AM [facility] eGFR by CKD-EPI >90 >=90 mL/min/1.7 3 m2 08/17/2024 4:53 AM [facility] Blood BLOOD SPECIMEN / Unknown Venipuncture / Unknown 08/17/2024 4:16 AM LATEXER 08/17/2024 4:30 AM [facility] Alexus Ramirez MD LAB - CHEMISTRY ORDERABLES Final Result [facility] [id number] [place] [address] * (ABNORMAL) HEMOGLOBIN A1C (08/14/2024 3:27 AM [facility]) Hemoglobin A1c 10.1(H) <5.7 % 08/14/2024 3:48 AM [facility] Estimated Average Glucose 243 mg/dL 08/14/2024 3:48 AM [facility] Blood BLOOD SPECIMEN / Unknown Venipuncture / Unknown 08/14/2024 3:27 AM LATEXER 08/14/2024 3:37 AM [facility] Narrative [facility] - 08/14/2024 3:48 AM [facility] MD LAB - CHEMISTRY ORDERABLES Final Result [facility] [id number] [place] [address] from Last 3 Months or Most Recently Relevant to Health Maintenance Insurance [facility] Advance Directives * Full Code (Latest Code Status on File) Date Activated Date Inactivated Comments 08/13/2024 3:54 PM 08/18/2024 6:24 PM Care Teams Stunt Driver Relationship Specialty Start Date End Date Kishor Saleh MD 2 [facility] [address] [address] PCP - General Internal Medicine 07/31/23
--- NOTE | 2025-02-17 03:58 | ED.BACK ---
HPI - Back Pain/Injury General Chief Complaint: Back Pain/Injury Stated Complaint: BACK PAIN, FEET NUMBNESS Time Seen by Provider: 02/17/25 03:40 History of Present Illness HPI Narrative: 49-year-old female with a history of type 2 diabetes, hypertension, JEREMY, morbid obesity, peripheral neuropathy. She presents to the emergency department with complaints of a headache, back pain, bilateral paresthesias in her legs. She states she had an epidural pain injection with her specialist at [facility] where she received an injection for chronic lumbar pain and sciatica nerve pain. She states that she initially felt better after the injection and went about her day without difficulty. Since Thursday she has been having progressively worsening headache that got worse today without any traumatic injury. States that the paresthesias she gets in her legs from chronic neuropathy is slightly worse as well as having midline back pain. No fever or chills. No falls. She has had epidural injections in the past without any complications but was told that this could happen. Has not been able to be in touch with her specialist yet so she came to the ER. Has not tried anything for symptom control at home. Related Data Home Medications ?Medication ?Instructions ?Recorded ?Confirmed ?Last Taken ?Type atorvastatin 20 mg tablet 20 mg PO HS 10/15/20 12/15/24 12/13/24 History loratadine 10 mg tablet (Claritin) 10 mg PO DAILY 10/15/20 12/15/24 05/24/23 History montelukast 10 mg tablet 10 mg PO HS 10/15/20 12/15/24 12/13/24 History insulin lispro-aabc 100 unit/mL 1 sliding scale dose subcut AC 05/25/23 12/15/24 12/13/24 History subcutaneous pen (Lyumjev KwikPen U-100 Insulin) tirzepatide 5 mg/0.5 mL 10 mg subcut WEEKLY 05/25/23 12/15/24 12/10/24 History subcutaneous pen injector (Stephan) venlafaxine 150 mg 150 mg PO QAM 05/25/23 12/15/24 12/13/24 History capsule,extended release 24 hr albuterol sulfate 2.5 mg/3 mL 2.5 mg inhalation DAILY PRN 08/10/23 12/15/24 Unknown History (0.083 %) solution for nebulization Shortness Of Breath cetirizine 10 mg tablet (All Day 10 mg PO DAILY 08/10/23 12/15/24 12/13/24 History Allergy (cetirizine)) ergocalciferol (vitamin D2) 50,000 unit PO .COMPLEX 08/10/23 12/15/24 12/11/24 History prednisone 20 mg tablet 40 mg PO DAILY@0800 08/10/23 12/15/24 12/13/24 History cyclobenzaprine 10 mg tablet 10 mg PO HS 07/31/24 12/15/24 12/13/24 History diclofenac sodium 75 mg 75 mg PO BID 07/31/24 12/15/24 12/13/24 History tablet,delayed release folic acid 1 mg tablet 1 mg PO DAILY 07/31/24 12/15/24 12/13/24 History hydroxychloroquine 200 mg tablet 400 mg PO HS 07/31/24 12/15/24 12/13/24 History insulin glargine 100 unit/mL (3 45 unit subcut BID 07/31/24 12/15/24 12/13/24 History mL) subcutaneous pen (Lantus Solostar U-100 Insulin) lisinopril 20 mg tablet 20 mg PO DAILY 07/31/24 12/15/24 12/13/24 History methotrexate sodium 2.5 mg tablet 12.5 mg PO WEEKLY 07/31/24 12/15/24 07/28/24 History pantoprazole 40 mg tablet,delayed 40 mg PO DAILY 07/31/24 12/15/24 12/13/24 History release acetaminophen 500 mg tablet 1,000 mg PO BID 09/23/24 12/15/24 12/13/24 History famotidine 20 mg tablet (Acid 20 mg PO HS 09/23/24 12/15/24 12/13/24 History Controller) magnesium 200 mg tablet 400 mg PO DAILY 09/23/24 12/15/24 12/13/24 History magnesium salicylate 162.5 1 tablet PO DAILY 09/23/24 12/15/24 Unknown History mg-caffeine 50 mg tablet (Diurex) potassium 99 mg tablet 99 mg PO HS 09/23/24 12/15/24 12/13/24 History albuterol sulfate 90 mcg/actuation 2 puff inhalation Q8H PRN 10/03/24 12/15/24 Unknown History aerosol inhaler shortness of breath or wheezing Allergies Allergy/AdvReac Type Severity Reaction Status Date / Time amoxicillin AdvReac Unknown Nausea and Verified 02/17/25 03:14 Vomiting glipizide AdvReac Unknown NAUSEA AND Verified 02/17/25 03:14 VOMITING hydrocodone AdvReac Unknown Nausea and Verified 02/17/25 03:14 Vomiting metformin AdvReac Unknown Nausea and Verified 02/17/25 03:14 Vomiting Review of Systems Review of Systems: As reviewed above in HPI [facility] Past Medical History Medical History Immunocompromised Vasculitis Depression JEREMY on CPAP Hypertension Hypercholesterolemia Diabetes Surgical History Surgical History H/O arthroscopy H/O myomectomy Family History Family History Mother Diabetes mellitus Myocardial infarction Uterine cancer Father Cancer of blood vessel Sibling Diabetes mellitus Social History Social History Smoking status: Never smoker Alcohol intake: never Drinks per week: 1 Substance use: never Substance use type: does not use Do You Feel Safe in your Home?: Yes Lack of Transportation: No Lack of Food: Never True Current Housing: I Have Housing Concerned About Future Housing: No Difficulty Paying Gas/Electric Bills: No Difficulty Paying for Meds: No Currently Unemployed: No Education: Trade/Vocational Certificate Difficulty w/ Childcare or Family Care: No Spiritual care concerns: No Exam Narrative: GENERAL: Uncomfortable appearing but not any acute distress HEAD: [Normocephalic, atraumatic.] EYES: [PERRLA and EOMI.] ENT: Nares clear, no rhinorrhea or epistaxis. Mucous membranes moist. NECK: Supple. CHEST: [Clear to auscultation. No respiratory distress.] HEART: [Regular rate and rhythm]. No murmur heard. [Normal peripheral pulses.] ABDOMEN: [Soft, nondistended], [nontender], [No rigidity or guarding] EXTREMITIES: Normal range of motion. No midline spinal tenderness on examination, previous dural puncture site is clean without any erythema, redness or tenderness, fluctuance or masses on palpation. EHL and FHL 5/5, good strength in both legs. SKIN: Warm and dry extremities, redness to the bilateral extremities likely stasis dermatitis without overt signs of cellulitis NEURO: No focal deficits. Alert and oriented x3 PSYCH: [Normal mood and affect.] Course Vital Signs Vital signs: Vital Signs Temperature 36.4 C L 02/17/25 03:06 Pulse Rate 111 H 02/17/25 03:06 Respiratory Rate 20 02/17/25 03:06 Blood Pressure 137/82 02/17/25 03:06 Pulse Oximetry 97 02/17/25 03:06 Oxygen Delivery Room Air 02/17/25 03:06 Temperature 36.3 C L 02/17/25 06:21 Pulse Rate 99 02/17/25 06:21 Respiratory Rate 17 02/17/25 06:21 Blood Pressure 157/82 H 02/17/25 06:21 Pulse Oximetry 94 02/17/25 06:21 Oxygen Delivery Room Air 02/17/25 03:34 MDM - Back Pain/Injury MDM Narrative Medical decision making narrative: 49-year-old female with a history of type 2 diabetes, hypertension, JEREMY, morbid obesity, peripheral neuropathy. She presents to the emergency department with complaints of a headache, back pain, bilateral paresthesias in her legs. She states she had an epidural pain injection with her specialist at [facility] where she received an injection for chronic lumbar pain and sciatica nerve pain. She states that she initially felt better after the injection and went about her day without difficulty. Since Thursday she has been having progressively worsening headache that got worse today without any traumatic injury. States that the paresthesias she gets in her legs from chronic neuropathy is slightly worse as well as having midline back pain. No fever or chills. No falls. She has had epidural injections in the past without any complications but was told that this could happen. Has not been able to be in touch with her specialist yet so she came to the ER. Has not tried anything for symptom control at home. Examination reveals No midline spinal tenderness on examination, previous dural puncture site is clean without any erythema, redness or tenderness, fluctuance or masses on palpation. EHL and FHL 5/5, good strength in both legs. She is mildly tachycardic but likely from pain, afebrile, no respiratory complaints, unremarkable blood pressure. Given patient's historical features and recent dural puncture this is likely the source of her headache with low suspicion for other process such as intracranial pathology. Migraine headache, tension headache also possible. She was given oral caffeine, IV Compazine, diphenhydramine, magnesium, Decadron and fluids. Laboratory studies were ordered. No present indication for advanced CT imaging and she will be re-evaluated after treatment regimen for improvement. Patient re-evaluated and had complete symptomatic resolution. Laboratory studies are reassuring, normal hemoglobin at her baseline, slight leukocytosis of 11.4 but down trending from her previous elevations. Normal platelet count. Normal coagulation panel. Normal electrolytes. Normal creatinine. LFTs at baseline. I discussed next steps with the patient including outpatient follow-up with her provider that gave her the epidural injections as if he has any recurrent or persistent symptoms they might be able to offer her a blood patch. Will also prescribe some medications for symptom control in the interim. Patient comfortable with the plan and safe for discharge home at this time. Medical Records Attestation: I reviewed the patient's medical records. Lab Data Attestation: I reviewed the patient's lab results. 02/17/25 04:24 02/17/25 04:24 Labs: Lab Results 02/17/25 Range/Units 04:24 WBC 11.4 H (4.5-10.0) K/mm3 RBC 3.76 L (4.2-5.4) M/mm3 Hgb 11.2 L (12.0-15.0) g/dL Hct 35.5 L (37.0-47.0) % MCV 94.4 (80-100) fl MCH 29.8 (26-34) pg MCHC 31.5 L (32-36) g/dl RDW 14.9 H (11.5-14.5) % Plt Count 333 (150-375) k/mm3 MPV 10.4 (7.4-10.4) fl Immature Gran % (Auto) 1.4 H (0-0.5) % Neut % (Auto) 62.1 (45.5-73.1) % Lymph % (Auto) 25.8 (18.3-44.2) % [place] % (Auto) 9.7 H (2.6-8.5) % Eos % (Auto) 0.4 (0-4.4) % Baso % (Auto) 0.6 (0.2-1.2) % Lymph # (Auto) 2.94 (0.9-3.2) K/mm3 [place] # (Auto) 1.1 H (0.1-0.6) K/mm3 Eos # (Auto) 0.1 (0-0.3) K/mm3 Baso # (Auto) 0.1 (0.0-0.1) K/mm3 Abs Immat Gran (auto) 0.16 H (0.00-0.031) K/mm3 Absolute Neuts (auto) 7.1 H (1.3-6.7) K/mm3 Absolute Nucleated RBC 0.000 (0.0-0.012) K/mm3 Nucleated RBC % 0.0 (0.0-0.2) % PT 12.0 (11.1-14.7) Seconds INR 0.9 APTT 25.9 (22.3-36.8) Seconds Sodium 136 L (137-145) mmol/L Potassium 4.0 (3.4-5.0) mmol/L Chloride 100 (98-107) mmol/L Carbon Dioxide 28 (22-30) mmol/L Anion Gap 8 (4-12) mmol/L BUN 20 H (7-17) mg/dL Creatinine 0.65 L (0.7-1.0) mg/dL Estim Creat Clear Calc 135 ml/min Estimated GFR > 60 (59 - ) Glucose 284 H (65-110) mg/dL Calcium 9.0 (8.4-10.2) mg/dL Total Bilirubin 0.4 (0.2-1.3) mg/dL AST 33 (14-36) U/L ALT 74 H (6-35) U/L Alkaline Phosphatase 62 (38-126) U/L Total Protein 5.9 L (6.3-8.2) g/dL Albumin 3.6 (3.5-5.1) g/dL Discharge Plan Discharge Clinical Impression: Post lumbar puncture headache Patient Disposition: Home Condition: Stable Instructions: Antibiotic Form, Epidural Blood Patch (DC) Additional Instructions: Your symptoms are consistent with a post dural puncture headache which is a common complication. We have treated this with a combination of pain and headache medications as well as caffeine which is a remedy for these symptoms. If you have any recurrent symptoms, new or worsening symptoms like this or any other concerns from the epidural injection you would need to see your provider for definitive treatment such as a blood patch to fix the puncture leak, but at this juncture no urgent or emergent need with the symptom improvement. Patient Language: Burmese Prescriptions: New prochlorperazine maleate [Compazine] 5 mg tablet 5 mg PO Q8H PRN (Reason: Headache) 1 Days Qty: 10 0RF ketorolac 10 mg tablet 10 mg PO Q8H PRN (Reason: pain) 3 Days Qty: 10 0RF Rx Instructions: maximum total duration of 5 days from all oral, intranasal, or parenteral formulations No Action atorvastatin 20 mg tablet 20 mg PO HS Rx Instructions: Has been off since June due PCP order. montelukast 10 mg tablet 10 mg PO HS loratadine [Claritin] 10 mg Tablet 10 mg PO DAILY venlafaxine 150 mg capsule,extended release 24hr 150 mg PO WAQAR Flood U-100 Insulin 100 unit/mL insulin pen 1 sliding scale dose SUBCUT AC Rx Instructions: For blood sugar of 150 or less administer 18 units for blood sugar per 25 points greater than 150 administer 1 unit per 25 over Mounjaro 5 mg/0.5 mL pen injector 10 mg SUBCUT WEEKLY Patient Comments: on Saturdays tramadol 50 mg Tablet 50 mg PO Q4H PRN (Reason: Severe pain) Qty: 15 0RF lidocaine 5 % adhesive patch,medicated 1 patch topical DAILY Qty: 30 0RF Rx Instructions: leave on most painful area for up to 12 hrs gabapentin 300 mg capsule 400 mg PO TID Qty: 30 0RF metoprolol tartrate 25 mg tablet 12.5 mg PO BID 30 Days Qty: 30 0RF ciprofloxacin HCl 500 mg tablet 500 mg PO Q12H Qty: 14 0RF metronidazole 500 mg tablet 500 mg PO Q8H 7 Days Qty: 21 0RF famotidine 20 mg tablet 20 mg PO DAILY Qty: 30 0RF dicyclomine 20 mg tablet 20 mg PO TID PRN (Reason: abdominal pain) Qty: 30 0RF ondansetron 4 mg tablet,disintegrating 4 mg PO Q8H PRN (Reason: nausea and vomiting) Qty: 14 0RF albuterol sulfate 2.5 mg /3 mL (0.083 %) solution for nebulization 2.5 mg inhalation DAILY PRN (Reason: Shortness Of Breath) cetirizine [All Day Allergy (cetirizine)] 10 mg Tablet 10 mg PO DAILY ergocalciferol (vitamin D2) 50,000 unit PO .COMPLEX Patient Comments: Patient takes on Wednesdays and Sundays Rx Instructions: 50,000 units orally twice a week; prednisone 20 mg tablet 40 mg PO DAILY@0800 cyclobenzaprine 10 mg tablet 10 mg PO HS Patient Comments: patient takes in the evening lisinopril 20 mg tablet 20 mg PO DAILY methotrexate sodium 2.5 mg tablet 12.5 mg PO WEEKLY Rx Instructions: on diclofenac sodium 75 mg tablet,delayed release (DR/EC) 75 mg PO BID folic acid 1 mg tablet 1 mg PO DAILY hydroxychloroquine 200 mg tablet 400 mg PO HS insulin glargine [Lantus Solostar U-100 Insulin] 100 unit/mL (3 mL) insulin pen 45 unit SUBCUT BID Patient Comments: in the morning and evening pantoprazole 40 mg tablet,delayed release (DR/EC) 40 mg PO DAILY Diurex 162.5-50 mg tablet 1 tablet PO DAILY magnesium 200 mg tablet 400 mg PO DAILY potassium 99 mg tablet 99 mg PO HS famotidine [Acid Controller] 20 mg tablet 20 mg PO HS acetaminophen 500 mg Tablet 1,000 mg PO BID albuterol sulfate 90 mcg/actuation HFA aerosol inhaler 2 puff INHALATION Q8H PRN (Reason: shortness of breath or wheezing) Follow-up/Referrals: PHYSICIAN NOT ON STAFF,NONSTAFF [Primary Care Provider] - Time of Disposition: 06:09
[2025-02-17] MEDS: SODIUM CHLORIDE 0.9% IV 1,000 ML 999 ML IV CONT (04:16)
[2025-02-17] MEDS: dexAMETHasone SOD PHOS INJ 10 MG/ML 1 ML VIAL IV PUSH (04:17)
[2025-02-17] MEDS: PROCHLORPERAZINE EDISYLATE 10 MG/2 ML VIAL IV PUSH (04:17)
[2025-02-17] MEDS: CAFFEINE 200 MG TABLET 300 MG PO (04:18)
--- OUTSIDE RECORDS SUMMARY | 2025-02-17 04:32 | XMS_ITS | Clinical Summary ---
Author Organization [facility] Address [address] [place] [address] Phone Care Team Providers Care Interface Designer Name Role Phone Masoud Hayes MD Primary Care Provider [phone] Allergies Active Allergy Reactions Criticality Noted Date [...] mouth daily. 30 Tablet 08/13/2022 2:47 PM SHOPFITTER 3 Active amLODIPine (NORVASC) 2.5 mg tablet Take 1 Tablet (2.5 mg) by mouth daily in the morning. 90 Tablet 05/29/2023 5:55 PM CDT 3 Active cyclobenzaprine (FLEXERIL) 5 mg Tablet TAKE 1-2 TABLETS BY MOUTH NIGHTLY TO REDUCE MUSCLE CRAMPS 60 Tablet 3 07/10/2023 3:38 PM SHOPFITTER 3 Active hydroxychloroqu ine (PLAQUENIL) 200 mg tablet TAKE 2 TABLETS BY MOUTH ONCE DAILY 60 Tablet 3 07/10/2023 3:38 PM SHOPFITTER 3 Active mycophenolate mofetil (CELLCEPT) 500 mg tablet TAKE 3 TABLETS BY MOUTH TWICE DAILY 180 Tablet 4 07/10/2023 3:38 PM SHOPFITTER 3 Active insulin glargine (LANTUS) 100 unit/mL [...] for pain 30 Tablet 07/13/2024 12:19 PM SHOPFITTER 4 Active methylPREDNISol one (Medrol, Marvel,) 4 [...] 3 Active fluticasone propionate (FLONASE) 50 mcg/spray Bow[place], Suspension nasal inhaler Administer 2 Sprays in each nostril 1 time daily as needed. 3 Active folic acid (FOLVITE) 1 mg tablet 4 Active gabapentin (NEURONTIN) 300 mg capsule 4 Active glucagon (BAQSIMI) 3 mg/spray Bowers, Non-Aerosol Administer 1 Bowers in each nostril. 4 Active insulin glargine-yfgn [...] daily. 120 Tablet 3 09/11/2024 3:51 PM SHOPFITTER 4 Active venlafaxine (EFFEXOR XR) 150 mg Extended Release 24 hour capsule Take 1 capsule (150 mg total) by mouth daily 30 Capsule 07/13/2024 12:19 PM SHOPFITTER 4 Active tirzepatide (Mounjaro) 10 mg/0.5 mL Pen Injector Inject 10 mg under the skin every 7 days 2 mL 3 09/29/2024 4:41 PM SHOPFITTER 4 Active isosorbide dinitrate (ISORDIL) 5 mg [...] to 4 times dialy. 5 Active Insulin [place], Disposable, 32 gauge x Needle Use to inject insulin up as directed to 5 times daily. 4 Active lancets 33 gauge Use to check blood sugar as directed up to 4 times daily. 4 Active Blood-Glucose Sensor ([employer] G7 Sensor) Device Use for continuous glucose [...] migh t be different from the original. Building Pressure Washer: Dr. Peraza Problem Noted Date Diagnosed Date Dyspnea 03/19/2012 Overview (03/22/2012): 02/11 EKG: NSR at 92 02/11 echo (TDS): EF 55%, trace MR, PA 24 Edema 03/19/2012 Hyperlipidemia 03/19/2012 Overview (03/19/2012): 02/11 cholesterol 235 HDL 51 LDL 153 triglyceride 155 Diabetes mellitus 03/19/2012 Overview (03/19/2012): 02/11 hemoglobin A1c 8.2 HTN (hypertension) Encounters Date Type Department Care Team Description 02/15/2025 External Device Data [facility] Provider, Abstract 02/14/2025 External Device Data [facility] Provider, Abstract 01/24/2025 External Device Data [facility] Provider, Abstract 01/18/2025 External Device Data [facility] Provider, Abstract 12/29/2024 11:30 AM CDT Office Visit [facility] [employer] [facility] [place] [address] [place] [address] Kendrick Teague MD Menopausal symptoms (Primary Dx) [...] on file Legal Sex Female 6:10 AM SHOPFITTER Gender Identity Not on file Sexual Orientation Not on file 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 See individual assays for performing site location. CLINICAL INFORMATION [facility] Comment:None given LAST MENSTRUAL PERIOD [facility] Comment:10/02/2023 PREV PAP: [facility] [place] Comment:NONE GIVEN PREV BX: [facility] [place] Comment:NONE GIVEN SOURCE [facility] [place] Comment:Endocervix ADEQUACY: [facility] [place] Comment: Satisfactory for evaluation. Endocervical/transformation zone component absent. PAP INTERP [facility] [place] Comment: Cytology Results: Negative for intraepithelial lesion or malignancy. COMMENT (PAP TEST) [facility] [place] Comment: This Pap test has been evaluated with computer assisted technology. DRILLER PORTABLE: [facility] [place] Comment: MEF, CT(ASCP) CT screening location: [place] [address] [place] [address] EXPLANATORY NOTE [facility] [place] Comment: EXPLANATORY NOTE: The Pap is a [...] information. HPV E6/E7 Not Detected Not Detected [facility] Comment: Methodology: Shuttlecock Assembler-Mediated Amplification This assay detects E6/E7 viral messenger RNA (mRNA) from 14 high-risk HPV types (16,18,31,33,35,39,45,51,52,56,58,59,66,68). Cervical sources are required for HPV testing. If a vaginal source from a patient who has had a total hysterectomy with removal of cervix was submitted, please contact the testing laboratory for alternative testing options. For additional information, please refer to http://education.[employer]/faq/MLT380l8 (This link if provided for information/ educational purposes only.) Test Performed at: [facility] [id number] [place] [address] Torin GUZMAN Genital SWAB OF ENDOCERVIX / Unknown 05/17/2024 4:26 PM CDT 05/18/2024 3:48 AM CDT us Kendrick Teague MD PATHOLOGY/CYTOLOGY ORDERABLE S Final Result [facility] [phone] [facility] [address] [place] [address] from Last 3 Months or Most Recently Relevant to Health Maintenance Insurance RX [employer] RX Member Subscriber Plan / Payer (Ef fective 2023-Present) Name:Walt Huitron Relation to Subscriber:Self Name:Walt Huitron Subscriber ID:Not on file Payer ID:Not on file Group ID:[id number] Type:RX Commercial Address: [address] [employer] (INTERNAL) [facility] Care Teams Interface Designer Relationship Specialty Start Date End Date Masoud Hayes MD PCP - General Internal Medicine 03/08/12
--- OUTSIDE RECORDS SUMMARY | 2025-02-17 04:32 | XMS_ITS | Encounter Summary ---
Author Organization [facility] Address [address] [place] [address] Care Team Providers Care Nickel Operator Name Role Phone Masoud Hayes MD Primary Care Provider [phone] Encounter Details Date Type Department Care Team (Late st Contact Info) Description 02/15/2025 External Device Data [facility] Provider, Abstract NO ADDRESS ON FILE Social History Tobacco Use Types Packs/Day Years Used Date Smoking Tobacco: Never Smokeless Tobacco: Never Alcohol Use Standard Drinks/Week Comments No 0 (1 standard drink = 0.6 oz pur e alcohol) Comments No Sex and Gender Information Value Date Recorded Sex Assigned at Not on file Legal Sex Female 6: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 SUPERVISOR [employer] Gender Identity Not on file Sexual Orientation Not on file 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
--- OUTSIDE RECORDS SUMMARY | 2025-02-17 04:33 | XMS_ITS | Clinical Summary ---
Author Organization [facility] Building A Address [address] [place] [address] Care Team Providers Care Glass Enamel Mixer Name Role Phone Ann Serrano MD Unavailable [phone] Lynn Rodriguez MD Primary Care Provider Allergies [...] daily. 400 each 3 Active blood-glucose sensor ([employer] G7 Sensor) deviceIndications :Uncontrolled type 2 diabetes mellitus with hyperglycemia (HCC),skilled nursing (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) Use for [...] NEBULIZER EVERY 6 HOURS NEEDED FOR WHEEZING (SPRING SALVAGE WORKER RECOMMENDS NOT EXCEEDING 4 VIALS/DAY) 600 mL [...] exertion Follow up pulmonary Impaired mobility 07/29/2024 skilled nursing (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 07/13/2024 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 07/13/2024 Assessment & Plan (07/13/2024 12:22 PM FOREST RESOURCE SPECIALIST): - Further complicates diabetes management Has immunity to COVID-19 virus 06/21/2021 Overview (06/30/2022): Pito vaccine 10/05/2020, Moderna booster and Pfizer bivalent booster Assessment & Plan (06/24/2021 3:28 PM FOREST RESOURCE SPECIALIST): Pito vaccine 10/05/2020 and Moderna booster Jun 2021 Major depressive disorder 04/22/2021 Assessment & Plan (01/06/2024 9:09 AM CDT): Stable on current medication regimen. Assessment & Plan (01/17/2022 10:21 AM CDT): Stable on current medication regimen. Assessment & Plan (07/17/2021 2:07 PM FOREST RESOURCE SPECIALIST): Better controlled on venlafaxine. Assessment & [...] Discussed possible rheumatology 2nd opinion here at [facility] and patient will call back if desired. Assessment & Plan (06/15/2023 10:48 AM FOREST RESOURCE SPECIALIST): Certainly making a case for underlying [...] condition. Assessment & Plan (06/20/2020 9:35 AM FOREST RESOURCE SPECIALIST): Unclear etiology but I am thinking [...] tolerated Assessment & Plan (08/26/2024 6:10 PM FOREST RESOURCE SPECIALIST): Body mass index is 49.1 kg/m . BMI Follow-up includes: nutrition counseling, exercise counseling, and education provided. Assessment & Plan (07/13/2024 12:20 PM FOREST RESOURCE SPECIALIST): - Increase Mounjaro to 10 mg [...] tolerated. Assessment & Plan (06/08/2023 5:23 PM FOREST RESOURCE SPECIALIST): Patient is encouraged to lose weight with a combination of caloric reduction and increased exercise. Various strategies discussed. The long-term risks associated with continued morbid obesity discussed. Assessment & Plan (09/04/2022 2:34 PM FOREST RESOURCE SPECIALIST): Patient is encouraged to lose weight with a combination of caloric reduction and increased exercise. Various strategies discussed. The long-term risks associated with continued morbid obesity discussed. Assessment & Plan (08/02/2022 12:16 PM FOREST RESOURCE SPECIALIST): Patient is encouraged to lose weight [...] discussed. Assessment & Plan (07/13/2020 8:34 AM FOREST RESOURCE SPECIALIST): Patient is encouraged to lose weight with a combination of caloric reduction and increased exercise. Various strategies discussed. The long-term risks associated with continued morbid obesity discussed. Assessment & Plan (06/20/2020 9:35 AM FOREST RESOURCE SPECIALIST): Patient is encouraged to lose weight with a combination of caloric reduction and increased exercise. Various strategies discussed. The long-term risks associated with continued morbid obesity discussed. Assessment & Plan (07/08/2019 8:44 AM FOREST RESOURCE SPECIALIST): Patient is encouraged to lose weight with a combination of caloric reduction and increased exercise. Various strategies discussed. The long-term risks associated with continued morbid obesity discussed. Irregular menses 06/03/2019 Allergic rhinitis 07/05/2018 Assessment & Plan (02/23/2023 1:30 PM CDT): Nasal saline spray (Simply saline, [employer], [place], [place]) 2 second sprays or 2 squeezes into [...] daily Assessment & Plan (07/17/2021 2:07 PM FOREST RESOURCE SPECIALIST): Claritin montelukast. Assessment & Plan (04/22/2021 8:25 AM CDT): Currently using Claritin and montelukast. She has not been trying Flonase as her nose is being to congested. Recommended sinus rinses her using a hot warm shower. Could also try Afrin for few days. Assessment & Plan (07/08/2019 8:43 AM FOREST RESOURCE SPECIALIST): Add montelukast to her Claritin. She struggles with nasal sprays due to chronic congestion. Assessment & Plan (07/05/2018 9:24 AM FOREST RESOURCE SPECIALIST): Try Afrin for 3 days along [...] mg/dL Assessment & Plan (07/13/2024 12:21 PM FOREST RESOURCE SPECIALIST): - Last LDL 103, TG 308, [...] triglycerides. Assessment & Plan (09/12/2023 8:12 PM FOREST RESOURCE SPECIALIST): Continue statin and optimize glycemic control Assessment & Plan (02/16/2023 8:14 PM CDT): Continue statin and optimize glycemic control Assessment & Plan (01/21/2023 9:50 AM CDT): Continue her atorvastatin and work on diet exercise and check lipids and LFTs before next visit. Assessment & Plan (08/02/2022 12:15 PM FOREST RESOURCE SPECIALIST): Well controlled on current therapy and will check a lipid panel and LFTs in 6 months. Assessment & Plan (01/17/2022 10:21 AM CDT): Well controlled on current therapy and will check a lipid panel and LFTs in 6 months. Assessment & Plan (07/17/2021 2:06 PM FOREST RESOURCE SPECIALIST): Well controlled on current therapy and will check a lipid panel and LFTs in 6 months. Assessment & Plan (06/24/2021 3:28 PM FOREST RESOURCE SPECIALIST): Continue statin and optimize glycemic control Assessment & Plan (12/19/2020 7:53 AM CDT): Continue statin and optimize glycemic control Assessment & Plan (07/13/2020 8:34 AM FOREST RESOURCE SPECIALIST): Well controlled on current therapy and will check a lipid panel and LFTs in 6 months. Assessment & Plan (06/08/2020 8:31 AM FOREST RESOURCE SPECIALIST): LDL within goal. Continue statin and optimize glycemic control Assessment & Plan (07/08/2019 8:42 AM FOREST RESOURCE SPECIALIST): Well controlled on current therapy and will check a lipid panel and LFTs in 12 months. Assessment & Plan (09/01/2018 2:22 PM FOREST RESOURCE SPECIALIST): Continue statin, optimize glycemic control Assessment & Plan (07/05/2018 9:23 AM FOREST RESOURCE SPECIALIST): Well controlled on current therapy and will check a lipid panel and LFTs in 6 months. Assessment & Plan (08/26/2017 4:27 PM FOREST RESOURCE SPECIALIST): Start atorvastatin and check lipids and LFTs in 3-4 months. Call back for results. Vitamin D deficiency 07/02/2017 Assessment & Plan (07/13/2024 12:22 PM FOREST RESOURCE SPECIALIST): - Last Vitamin D 42 (12/2023), [...] week Assessment & Plan (09/12/2023 8:12 PM FOREST RESOURCE SPECIALIST): Continue long-term supplement Assessment & Plan (02/16/2023 8:14 PM CDT): Continue long-term supplement Assessment & Plan (08/02/2022 12:15 PM FOREST RESOURCE SPECIALIST): Continue current supplementation and check level in 1 year. Assessment & Plan (07/17/2021 2:06 PM FOREST RESOURCE SPECIALIST): Continue current supplementation and check level in 1 year. Assessment & Plan (06/24/2021 3:29 PM FOREST RESOURCE SPECIALIST): Continue long-term supplement Assessment & Plan (12/19/2020 7:53 AM CDT): Continue long-term supplement Assessment & Plan (07/13/2020 8:33 AM FOREST RESOURCE SPECIALIST): Continue current supplementation and check level in 1 year. Assessment & Plan (06/08/2020 8:31 AM FOREST RESOURCE SPECIALIST): Vitamin-D level within goal, continue chronic supplement Assessment & Plan (07/08/2019 8:42 AM FOREST RESOURCE SPECIALIST): Continue current supplementation and check level in 1 year. Assessment & Plan (06/03/2019 8:24 AM CDT): Recently ran out of supplement, so we will restart and check her level today. Also check B12 Assessment & Plan (09/01/2018 2:22 PM FOREST RESOURCE SPECIALIST): Continue supplement Assessment & Plan (07/05/2018 9:23 AM FOREST RESOURCE SPECIALIST): Continue current supplementation and check level in 1 year. Assessment & Plan (08/26/2017 4:26 PM FOREST RESOURCE SPECIALIST): Continue current supplementation and check level [...] Value Date HGBA1C 8.9 (A) 01/09/2025 Per [place] [employer], goal A1c is less 7% [...] Component Value Date HGBA1C 11.7 07/13/2024 Per [place] [employer], goal A1c is less 7% [...] that I am available via phone or [employer] if they have any concerns for hypo/hyperglycemia, medication refills, etc. Assessment & Plan (08/26/2024 6:10 PM FOREST RESOURCE SPECIALIST): Assessment & Plan (07/13/2024 12:20 PM FOREST RESOURCE SPECIALIST): - Diabetes is complicated by hyperlipidemia, hypertension, morbid obesity and chronic steroid use. Uncontrolled. Lab Results Component Value Date HGBA1C 11.7 07/13/2024 Per [place] [employer], goal A1c is less 7% [...] in prescriptions for both Dexcom G7 and LabPixiesStyle Silva 3 CGM for mcmillan checking. Also [...] Return visit 3 months to see the ASSOCIATE WEB DEVELOPER/PA, 6 months to see me. Assessment & [...] Component Value Date HGBA1C 12.5 11/17/2023 Per [place] [employer], goal A1c is less 7% [...] Component Value Date HGBA1C 12.5 11/17/2023 Per [place] [employer], goal A1c is less 7% without significant hypoglycemia. - Management Goal: re-start and adherence to medication regimen - Continue current medication regimen at this time. - Patient called local pharmacy to confirm that they do have prescriptions for her Semglee. She is going to quill picking machine operator today after this visit. - Insurance [...] that I am available via phone or [employer] if they have any concerns for hypo/hyperglycemia, medication refills, etc. Assessment & Plan (09/12/2023 8:13 PM FOREST RESOURCE SPECIALIST): Very high glucoses; multifactorial including steroid [...] daily. Assessment & Plan (06/24/2021 3:29 PM FOREST RESOURCE SPECIALIST): Much improved but needs a little more basal insulin. Assessment & Plan (12/19/2020 7:53 AM CDT): Multiple medications, but now requires insulin. We can gradually adjust her Lantus based on her clinical response. Assessment & Plan (06/08/2020 8:32 AM FOREST RESOURCE SPECIALIST): Glucoses somewhat better now that she [...] motivator. Assessment & Plan (07/08/2019 8:43 AM FOREST RESOURCE SPECIALIST): Continue increased dose of Ozempic and also continue Invokana. Importance of dietary changes increase exercise weight loss discussed. Follow-up with her mix crusher operator as they direct. Assessment & Plan (06/03/2019 8:25 AM CDT): Somewhat suboptimal, would benefit from increasing Ozempic and continuing efforts with diet and lifestyle. Needs follow-up labs Assessment & Plan (09/01/2018 2:22 PM FOREST RESOURCE SPECIALIST): Glucoses a little high, but she has bruising with Victoza so she may benefit by changing to weekly Ozempic, which is a little stronger, as well. Jardiance is been ineffective, so we may need to provide preauthorization for Invokana Assessment & Plan (07/05/2018 9:23 AM FOREST RESOURCE SPECIALIST): A1c above goal. We stressed importance of increased exercise, reduce calories, weight loss. Could consider switching Victoza to ozempic. Otherwise does not tolerate metformin or sulfonylureas. May need insulin soon. She is directed to follow up with her mix crusher operator more quickly than her next scheduled appointment in November. Assessment & Plan (08/26/2017 4:26 PM FOREST RESOURCE SPECIALIST): Continue current medication regimen and follow up with her mix crusher operator as they direct. Low carb diet [...] mmHg Assessment & Plan (07/13/2024 12:21 PM FOREST RESOURCE SPECIALIST): - Above goal today - Encouraged [...] monitor. Assessment & Plan (06/08/2023 5:25 PM FOREST RESOURCE SPECIALIST): Stop amlodipine with current issues of swelling. Pressure currently well controlled and should monitor at home Assessment & Plan (01/21/2023 9:49 AM CDT): Blood pressure well controlled on lisinopril Assessment & Plan (09/04/2022 2:34 PM FOREST RESOURCE SPECIALIST): Blood pressure well controlled on her lisinopril. Assessment & Plan (08/02/2022 12:15 PM FOREST RESOURCE SPECIALIST): Increase lisinopril to 20 mg daily. Monitor blood pressure at home call back if no improvement. Assessment & Plan (01/17/2022 10:21 AM CDT): Well controlled on the current regimen. Avoidance of salt, proper body weight, and routine exercise recommended. Assessment & Plan (07/17/2021 2:06 PM FOREST RESOURCE SPECIALIST): Well controlled on the current regimen. Avoidance of salt, proper body weight, and routine exercise recommended. Assessment & Plan (04/22/2021 8:24 AM CDT): Well controlled on the current regimen. Avoidance of salt, proper body weight, and routine exercise recommended. Assessment & Plan (07/13/2020 8:34 AM FOREST RESOURCE SPECIALIST): Well controlled on the current regimen. Avoidance of salt, proper body weight, and routine exercise recommended. Assessment & Plan (07/08/2019 8:42 AM FOREST RESOURCE SPECIALIST): Well controlled on the current regimen. Avoidance of salt, proper body weight, and routine exercise recommended. Assessment & Plan (09/01/2018 2:21 PM FOREST RESOURCE SPECIALIST): Blood pressure close to target, working on diet and lifestyle Assessment & Plan (07/05/2018 9:23 AM FOREST RESOURCE SPECIALIST): Well controlled on the current regimen. Avoidance of salt, proper body weight, and routine exercise recommended. Assessment & Plan (08/26/2017 4:25 PM FOREST RESOURCE SPECIALIST): Well controlled on the current regimen. [...] montelukast Assessment & Plan (08/26/2024 6:08 PM FOREST RESOURCE SPECIALIST): Recent exacerbation due to CAP followed by RSV Symptoms improved Continue present plan and medication--albuterol prn, montelukast Assessment & Plan (07/13/2020 8:36 AM FOREST RESOURCE SPECIALIST): Doing well on her Symbicort. Okay to discontinue and use albuterol only as needed. Restart Symbicort if uses her albuterol more than 2 times a week. Obstructive sleep apnea 04/01/2012 Overview (11/12/2017): Description: CPAP Assessment & Plan (01/06/2024 9:08 AM CDT): Patient is compliant with the CPAP machine and gets symptomatic relief. Assessment & Plan (08/02/2022 12:15 PM FOREST RESOURCE SPECIALIST): Patient is compliant with the CPAP machine and gets symptomatic relief. Assessment & Plan (07/17/2021 2:06 PM FOREST RESOURCE SPECIALIST): Repeat sleep study confirmed obstructive sleep [...] syndrome. Assessment & Plan (07/13/2020 8:34 AM FOREST RESOURCE SPECIALIST): Patient is compliant with the CPAP machine and gets symptomatic relief. Assessment & Plan (07/08/2019 8:42 AM FOREST RESOURCE SPECIALIST): Patient is compliant with the CPAP machine and gets symptomatic relief. Female infertility associated with anovulation 0 09/21/2011 Resolved Problems Problem Noted Date Diagnosed Date Resolved Date Decreased functional mobility and endurance 12/29/2024 02/15/2025 Uncontrolled diabetes mellit us with hyperglycemia 08/14/2024 12/21/2024 Acute hypoxic respiratory failure 08/13/2024 12/21/2024 Assessment & Plan (08/26/2024 6:09 PM FOREST RESOURCE SPECIALIST): Recent hospitalization likely for CAP followed [...] legs Assessment & Plan (06/15/2023 10:47 AM FOREST RESOURCE SPECIALIST): Improved after addition of doxycycline to her Bactrim. Call back if symptoms worsen after doxycycline runs out Assessment & Plan (06/08/2023 5:25 PM FOREST RESOURCE SPECIALIST): Seems like cellulitis slow to improve [...] 12/21/2024 Assessment & Plan (09/04/2022 2:35 PM FOREST RESOURCE SPECIALIST): No signs of neurological abnormality on [...] Continue other medications as directed by her mix crusher operator. Diet exercise discussed. Hopefully may be able to wean prednisone in the near future as well. Assessment & Plan (06/15/2023 10:48 AM FOREST RESOURCE SPECIALIST): She knows that the steroids will exacerbate her hyperglycemia and should be in contact with her mix crusher operator for management. Assessment & Plan (06/08/2023 5:26 PM FOREST RESOURCE SPECIALIST): Poor control of her diabetes prior to this hospitalization and even worse now on prednisone. Follow-up with her mix crusher operator for management. Diet exercise weight loss recommended. Assessment & Plan (01/21/2023 9:50 AM CDT): Blood sugars remain above goal. Hopefully the recent addition of mounjaro will help significantly. Discuss up titration of this and her mealtime insulin with her mix crusher operator. Diet exercise discussed. Check A1c and fasting blood sugar before next visit. Assessment & Plan (08/02/2022 12:16 PM FOREST RESOURCE SPECIALIST): A1c poorly controlled. Importance of diet exercise weight loss discussed at length. Continue her Ozempic and insulin and needs to contact her mix crusher operator soon as possible for guidance on further therapy. Assessment & Plan (01/17/2022 10:22 AM CDT): Patient aware A1c grossly uncontrolled. Must work on diet exercise and weight loss. She has to get back on her insulin and should discuss this today with her mix crusher operator. Risks posed her health with poor glycemic control discussed. Assessment & Plan (07/13/2020 8:34 AM FOREST RESOURCE SPECIALIST): A1c above goal. Importance of diet exercise weight loss discussed. Continue current medication regimen and follow-up with her mix crusher operator as they direct. Dyslipidemia 06/03/2019 07/13/2020 Healthcare [...] yearly. Colonoscopy due March 2027. Follow-up the redevelopment specialist for breast exam pelvic exam as they direct. Will see her back in about 6 months sooner if needed. Assessment & Plan (08/02/2022 12:17 PM FOREST RESOURCE SPECIALIST): Flu shot each May. Tetanus booster every 10 years. Pneumovax completed. COVID booster recommended. Mammogram yearly. Colonoscopy due March 2027. Follow-up the redevelopment specialist for breast exam pelvic exam as they direct. Will see her back in 6 months with lab sooner if needed. Assessment & Plan (07/17/2021 2:08 PM FOREST RESOURCE SPECIALIST): Flu shot each May. Tetanus booster every 10 years. Pneumovax completed. COVID vaccine completed. Mammogram yearly. Colonoscopy ordered and she should verify coverage before proceeding. Follow-up the redevelopment specialist for breast exam and pelvic exam as they direct. We will see her back in 1 year for physical and fasting lab sooner if needed. Assessment & Plan (07/13/2020 8:35 AM FOREST RESOURCE SPECIALIST): Flu shot each May. Tetanus booster every 10 years. She has had a Pneumovax. Mammogram was abnormal back in August and she has delayed follow-up studies until now and she is urged to get her diagnostic and ultrasound studies done at her earliest convenience and she is aware of the risks posed her health with delay in proceeding. Follow-up the redevelopment specialist for breast exam and pelvic exam as they direct. We will see her back in 1 year for wellness visit fasting lab sooner if needed. Assessment & Plan (07/08/2019 8:43 AM FOREST RESOURCE SPECIALIST): Flu shot each May. Tetanus booster every 10 years. Mammogram ordered. Will see her back in 1 year for physical and fasting lab sooner if needed. Assessment & Plan (07/05/2018 9:24 AM FOREST RESOURCE SPECIALIST): Tetanus booster today. Flu shot each May. Mammogram ordered. Patient should follow-up the redevelopment specialist breast exam and pelvic exam. We will see her back in 1 year for wellness visit fasting lab sooner if needed. Assessment & Plan (08/26/2017 4:27 PM FOREST RESOURCE SPECIALIST): Flu shot each May. Tetanus booster every 10 years. See her redevelopment specialist for breast exam mammogram and Pap smear [...] aerobics Assessment & Plan (08/26/2017 4:28 PM FOREST RESOURCE SPECIALIST): Patient is encouraged to lose weight [...] Team Description 02/16/2025 9:00 AM CDT Therapy [facility] at [facility] [address] [place] [address] Adelina Little, PT Lymphedema (Primary Dx); Decreased functional mobility and endurance 02/15/2025 9:15 AM CDT Office Visit [facility] - [id number] [place] [address] Lynn Rodriguez MD Uncontrolled type 2 diabetes mellitus with hyperglycemia (HCC) (Primary Dx); Benign hypertension; Mixed hyperlipidemia; Morbid obesity with BMI of 50.0-59.9, adult (HCC); Moderate persistent asthma without complication; Class 3 severe obesity due to excess calories with serious comorbidity and body mass index (BMI) of 50.0 to 59.9 in adult; terminal superintendent (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); Chronic hypoxic respiratory failure (HCC); Lymphedema; Sacroiliitis; Radiculopathy, lumbosacral region; Spinal stenosis of lumbar region with neurogenic claudication; Autoimmune disease 02/14/2025 12:59 PM CDT - 02/14/2025 11:59 PM CDT Hospital Encounter [facility] [address] [place] [id number] Adam Corrales MD Radiculopathy, lumbosacral region [M54.17] (Primary Dx); Spinal stenosis of lumbar region with neurogenic claudication Discharge Disposition: Discharge to home or self care 02/09/2025 9:00 AM CDT Therapy [facility] at [address] [address] Adelina Little, PT Lymphedema (Primary Dx); Decreased functional mobility and endurance 02/09/2025 Orders Only [facility] Sleep Medicine at [address] [address] Iqra Jensen MD JEREMY (obstructive sleep apnea) (Primary Dx) 02/07/2025 12:00 PM CDT Therapy [facility] at [address] [address] Ele Vazquez, PT Lymphedema (Primary Dx); Decreased functional mobility and endurance 02/07/2025 Plan of Care Documentation [facility] at [address] [address] 02/06/2025 9:30 AM CDT - 02/06/2025 11:59 PM CDT Hospital Encounter [facility] [address] [place] [address] [address] [place] [address] Amada [place] NP Spinal stenosis of lumbar region with neurogenic claudication (Primary Dx); Radiculopathy, lumbosacral region; Sacroiliitis; Chronic right-sided low back pain with right-sided sciatica; Uncontrolled type 2 diabetes mellitus with hyperglycemia (HCC); Morbid obesity with BMI of 50.0-59.9, adult (HCC); Benign hypertension Discharge Disposition: Discharge to home or self care 02/02/2025 3:02 PM CDT - 02/02/2025 5:37 PM CDT Emergency [facility] Emergency Department [address] [place] [id number] Sumit Yu MD Fall, initial encounter (Primary Dx) Discharge Disposition: Discharge to home or self care 02/02/2025 2:04 PM CDT - 02/02/2025 11:59 PM CDT Hospital Encounter [facility] Imaging and Radiology [address] [place] [phone] Adam Corrales MD Chronic low back pain with sciatica, sciatica laterality unspecified, unspecified back pain laterality Discharge Disposition: Discharge to home or self care 02/02/2025 Telephone [facility] at [address] [address] Adelina Little, PT Appointment 01/30/2025 12:00 PM CDT Therapy [facility] at [address] [address] Tiffanie Cantu, PT Lymphedema (Primary Dx); Decreased functional mobility and endurance 01/24/2025 10:15 AM CDT Lab [facility] [address] [place] [phone] 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 9:49 AM CDT - 01/24/2025 11:59 PM CDT Hospital Encounter [facility] [address] [place] [address] Lucian Trinidad MD PhD Cutaneous vasculitis Discharge Disposition: Discharge to home or self care 01/24/2025 9:00 AM CDT Office Visit [facility] [address] [place] [address] [place] [address] Lucian Trinidad MD PhD 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 Results Follow-Up [facility] [address] [place] [address] [place] [address] Lucian Trinidad MD PhD XR Wrist Right 3 or More Views 01/23/2025 12:00 PM CDT Therapy [facility] Rehabilitation Services at [address] [place], [place] [id number] Tiffanie Cantu, PT Lymphedema (Primary Dx); Decreased functional mobility and endurance 01/23/2025 Telephone [facility] Gastroenterology at [address] [place] [address] Graciela Shultz 01/20/2025 2:00 PM CDT Therapy [facility] Rehabilitation Services at [address] [place] [address] Tiffanie Cantu, PT Lymphedema (Primary Dx); Decreased functional mobility and endurance 01/19/2025 7:00 PM CDT - 01/19/2025 11:59 PM CDT Hospital Encounter [facility] [address] [place] [address] Obstructive sleep apnea Discharge Disposition: Discharge to home or self care 01/18/2025 3:00 PM CDT Therapy [facility] Rehabilitation Services at [address] [place] [address] Tiffanie Cantu, PT Lymphedema (Primary Dx); Decreased functional mobility and endurance 01/11/2025 1:00 PM CDT Therapy [facility] Rehabilitation Services at [address] [place] [phone] Tiffanie Cantu, PT Lymphedema (Primary Dx); Decreased functional mobility and endurance 01/10/2025 12:21 PM CDT - 01/10/2025 11:59 PM CDT Hospital Encounter [facility] [address] [place] [address] Adam Corrales MD Chronic low back pain with sciatica, sciatica laterality unspecified, unspecified back pain laterality (Primary Dx); Acute right-sided low back pain with right-sided sciatica; Sacroiliitis; Radiculopathy, lumbosacral region; Chronic right-sided low back pain with right-sided sciatica Discharge Disposition: Discharge to home or self care 01/09/2025 3:10 PM CDT Lab [facility] Advanced [facility] ([facility]) [address] [place] [address] 01/09/2025 2:55 PM CDT Lab [facility] Advanced [facility] Advanced Medicine ([facility]) [address] [place] [phone] Uncontrolled type 2 diabetes mellitus with hyperglycemia (HCC); Obstructive sleep apnea; Iron deficiency; Restless leg syndrome 01/09/2025 11:30 AM CDT - 01/09/2025 11:59 PM CDT Hospital Encounter [facility] Advanced [facility] Breast Imaging [facility] Advanced Medicine ([facility]) [address] [place] [address] Screening mammogram, encounter for Discharge Disposition: Discharge to home or self care 01/09/2025 10:30 AM CDT Office Visit [facility] Met[facility] and Lipid [address] [facility] 13[address] [place] [address] [place] [address] Shirley Teixeira PA Uncontrolled type 2 diabetes mellitus with hyperglycemia (HCC) (Primary Dx); Benign hypertension; Mixed hyperlipidemia; Morbid obesity with BMI of 50.0-59.9, adult (HCC); 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; skilled nursing (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); Encounter for comprehensive diabetic foot examination, type 2 diabetes mellitus (HCC) 01/09/2025 Results Follow-Up [facility] Sleep Medicine at [address] [place] [address] Iqra Jensen MD [facility] 01/09/2025 Results Follow-Up [facility] Metabolism and Lipid [address] [facility] 13th [place] [address] [place] [address] Shirley Teixeira PA Vitamin D 25 hydroxy, Vitamin B12, TSH, Additional followed-up results: 6 01/06/2025 2:00 PM CDT Therapy [facility] Rehabilitation Services at [address] [address] Tiffanie Cantu, PT Lymphedema (Primary Dx); Decreased functional mobility and endurance 01/06/2025 Plan of Care Documentation [facility] Rehabilitation Services at [address] [address] 01/06/2025 Documentation [facility] Rehabilitation Services at [address] [address] Tiffanie Cantu, PT compression script 01/06/2025 Plan of Care Documentation [facility] Rehabilitation Services at [address] [address] 01/04/2025 12:00 PM CDT Therapy [facility] Services at [address] [address] Tiffanie Cantu, PT Lymphedema (Primary Dx); Decreased functional mobility and endurance 01/03/2025 Results Follow-Up [facility] Pulmonary at [address] [place] [address] Canelo Doan DO Transthoracic Echo (TTE) Complete W Doppler/CF 01/02/2025 9:30 AM CDT Office Visit [facility] Sleep Medicine at [address] [place] [address] Iqra Jensen MD Obstructive sleep apnea (Primary Dx); Hypersomnia; Obesity, unspecified class, unspecified obesity type, unspecified whether serious comorbidity present; Iron deficiency; Restless leg syndrome 12/30/2024 Telephone [facility] Gastroenterology at [address] [place] [address] Ad Camacho MD 12/29/2024 9:00 AM CDT Therapy [facility] Rehabilitation Services at [address] [place] [address] Ele Vazquez PT Lymphedema (Primary Dx); Decreased functional mobility and endurance 12/29/2024 Plan of Care Documentation [facility] Rehabilitation Services at [address] [address] 12/23/2024 6:57 AM CDT - 12/23/2024 11:59 PM CDT Hospital Encounter [facility] Cardiology 1 [place] [address] Hypoxia Discharge Disposition: Discharge to home or self care 12/22/2024 Telephone [facility] Gastroenterology at [address], [place] [address] Alex Billings MD 12/21/2024 2:30 PM CDT Office Visit [facility] Medical [facility] Primary Care at [place] [id number] [facility] [address] [place] [phone] Lynn Rodriguez MD Acute right-sided low back [...] Films 12/13/2024 2:30 PM CDT Office Visit [facility] Pulmonary at [place] [address] [facility] [address] [place] [address] Canelo Doan DO Moderate persistent asthma without complication (Primary Dx); Class 3 severe obesity due to excess calories with serious comorbidity and body mass index (BMI) of 45.0 to 49.9 in adult; Chronic hypoxic respiratory failure (HCC); 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 11/30/2024 3:30 PM CDT Office Visit [facility] at [address] [address] Minnie House NP Acute non-recurrent frontal sinusitis (Primary Dx) from Last 3 Months Immunizations Immunization Administration Dates Next Due Influenza, Quadrivalent, Rosita l Culture-based MDCK, Preservative Free, Antibiotic Free, Intramuscular 05/13/2023,05/23/2022 Influenza, Quadrivalent, Spl it, Intramuscular 05/03/2015 Influenza, Quadrivalent, Spl it, Preservative Free, Intramuscular 05/16/2020,05/07/2018 Influenza, Unspecified 05/16/2021,2020,04/22/2021(Defer red: Patient Refused),03/19/2021(Deferred: Patient Refused),05/12/2019,05/07/2017 Quellan (J&J) SARS-CoV-2 Vaccination 10/05/2020 Pneumococcal Conjugate Pcv20 [...] Other Medical Hyperlipidemia; Comments: [facility] 04/11/2014 - Hx Other Medical Diabetes; Comme nts: [facility] 04/11/2014 - Hx Other Medical [...] IVF transfer 2015 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 Morbid [...] on file Legal Sex Female 11:54 PM FOREST RESOURCE SPECIALIST Gender Identity Female 09/19/2020 8:37 AM FOREST RESOURCE SPECIALIST Sexual Orientation Straight 09/19/2020 8: 37 AM FOREST RESOURCE SPECIALIST Obstetrics History Para Term AB IAB [...] Description 04/27/2025 7:30 AM CDT Hospital Encounter [address] [address] Ad Camacho MD [address] [facility] [place] [place] [address] 04/27/2025 7:30 AM CDT - 04/27/2025 8:00 AM CDT Surgery [address] [address] Ad Camacho MD [address] [facility] [place] [address] ESOPHAGOGASTRODUODENOSCOPY Scheduled Procedures Name Priority Associated Diagnoses [...] CDT) LALO, qual NEGATIVE NEGATIVE [facility] Comment: LALO IFA is a first line [...] AC-0: Negative International Consensus on LALO Patterns (https://doi.org/10.1515/ulqs-7004-5623) For additional information, please refer to http://education.Veeva/faq/FIK355 (This link is being provided for informational/ educational purposes only.) Blood 02/15/2025 10:4 1 AM CDT 02/15/2025 10:43 AM CDT Narrative [facility] - 02/16/2025 3:55 PM CDT FASTING:YES FASTING: YES Lucian Trinidad MD PhD LAB BLOOD ORDERABLE S Final Result Performing Organization Address City/[facility] Co de Phone Number [facility] [address] [place] [address] * Anti-double stranded DNA abs (02/15/2025 10:41 AM CDT) DNA (DS) ab <1 IU/mL [facility] Comment: IU/mL Interpretation < or = 4 Negative 5-9 Indeterminate > or = 10 Positive Blood 02/15/2025 10:4 1 AM CDT 02/15/2025 10:43 AM CDT Narrative [facility] - 02/16/2025 7:07 AM CDT FASTING:YES FASTING: YES Lucian Trinidad MD PhD LAB BLOOD ORDERABLE S Final Result [facility] [address] [place] [address] * NOTE (02/15/2025 10:41 AM CDT) Pathologist [facility] Note [facility] Comment: This urine was analyzed for the presence of WBC, RBC, bacteria, casts, and other formed elements. Only those elements seen were reported. 02/15/2025 10:4 1 AM CDT 02/15/2025 10:43 AM CDT Narrative [facility] - 02/16/2025 6:35 AM CDT FASTING:YES FASTING: YES Lucian Trinidad MD PhD LAB BLOOD ORDERABLE S Final Result Performing Organization Address [facility] de Phone Number [facility] [address] [place] [address] * C4 complement (02/15/2025 10:41 AM CDT) [facility] Complement component C4C 24 15 - 57 mg/dL [facility] nexsaida Blood 02/15/2025 10:4 1 AM CDT 02/15/2025 10:43 AM CDT Narrative [facility] - 02/16/2025 7:26 AM CDT FASTING:YES FASTING: YES Lucian Trinidad MD PhD LAB BLOOD ORDERABLE S Final Result Performing Organization Address [facility] de Phone Number [facility] [address] [place] [address] * PR3 - proteinase 3, Ab (02/15/2025 10:41 AM CDT) [facility] Proteinase-3 ab <1.0 [facility] Comment: Value Interpretation ----- <1.0 No Antibody Detected > or = 1.0 Antibody Detected Autoantibodies to proteinase-3 (TX-3) are accepted as characteristic for granulomatosis with polyangiitis (GPA, Brent's), and are detectable in 95% of the histologically proven cases. The cytoplasmic IFA pattern, (c-ANCA), is based largely on autoantibody to TX-3 which serves as the primary antigen. These autoantibodies are present in active disease. Blood 02/15/2025 10:4 1 AM CDT 02/15/2025 10:43 AM CDT Narrative [facility] - 02/16/2025 7:07 AM CDT FASTING:YES FASTING: YES Lucian Trinidad MD PhD LAB BLOOD ORDERABLE S Final Result Performing Organization Address [facility] de Phone Number [facility] [address] [place] [address] * MPO - myeloperoxidase antibody (02/15/2025 10:41 AM CDT) MYELOPEROXIDASE ANTIBODY <1.0 [facility] Comment: Value Interpretation ----- <1.0 No Antibody [...] ORDERABLE S Final Result Performing Organization Address [facility] Co de Phone Number [facility] [address] [place] [address] * (ABNORMAL) Urinalysis reflex to microscopic (02/15/2025 10:41 AM CDT) Color, ur YELLOW YELLOW [facility] Appearance, ur CLOUDY(A) CLEAR [facility] Specific gravity 1.039(H) 1.001 - 1.035 [facility] pH, ur < OR = 5.0(A) 5.0 - 8.0 [facility] Glucose, ur 2+(A) NEGATIVE [facility] Bilirubin, ur NEGATIVE NEGATIVE [facility] Ketones, ur TRACE(A) NEGATIVE [facility] Blood, ur 1+(A) NEGATIVE [facility] Protein, ur, quant 1+(A) NEGATIVE [facility] Nitrites, ur NEGATIVE NEGATIVE [facility] Leukocyte esterase, ur NEGATIVE NEGATIVE [facility] WBC, ur NONE SEEN < OR = 5 /HPF [facility] RBC, ur NONE SEEN < OR = 2 /HPF [facility] Epithelial cells, squamous, ur 20-40(A) < OR = 5 /HPF [facility] Bacteria, ur, quant FEW(A) NONE SEEN /HPF [facility] Hyaline cast NONE SEEN NONE SEEN /LPF [facility] Yeast, ur MANY(A) NONE SEEN /HPF [facility] Urine 02/15/2025 10:4 1 AM CDT 02/15/2025 10:43 AM CDT Narrative [facility] - 02/16/2025 6:35 AM CDT FASTING:YES FASTING: YES us Lucian Trinidad MD PhD LAB URINE ORDERABLE S Final Result [facility] [address] [place] [address] * (ABNORMAL) CBC with auto differential (02/15/2025 [...] BLOOD ORDERABLE S Final Result [facility] [address] [place] [address] * Cyclic citrul peptide antibody, IgG (02/15/2025 [...] ORDERABLE S Final Result Performing Organization Address City/[facility] Co de Phone Number [facility] [address] [place] [address] * (ABNORMAL) Protein / creatinine ratio, urine, random (02/15/2025 10:41 AM CDT) Pathologist [facility] Creatinine, ur 209 20 - 275 mg/dL [...] ORDERABLE S Final Result Performing Organization Address City/[facility] Co de Phone Number [facility] [address] [place] [address] * Erythrocyte sedimentation rate (02/15/2025 10:41 AM CDT) Erythrocyte sedimentation rate 6 < OR = 20 mm/h [facility] Blood 02/15/2025 10:4 1 AM CDT 02/15/2025 10:43 AM CDT Narrative [facility] - 02/16/2025 7:26 AM CDT FASTING:YES FASTING: YES us Lucian Trinidad MD PhD LAB BLOOD ORDERABLE S Final Result Performing Organization Address [facility] de Phone Number [facility] [address] [place] [address] * Rheumatoid factor (02/15/2025 10:41 AM CDT) Rheumatoid factor, quant <10 <14 IU/mL [facility] Blood 02/15/2025 10:4 1 AM CDT 02/15/2025 10:43 AM CDT Narrative [facility] - 02/16/2025 6:07 AM CDT FASTING:YES FASTING: YES us Lucian Trinidad MD PhD LAB BLOOD ORDERABLE S Final Result Performing Organization Address [facility] de Phone Number [facility] [address] [place] [address] * C3 complement (02/15/2025 10:41 AM CDT) Pathologist [facility] Complement component C3C 188 83 - 193 mg/dL [facility] Blood 02/15/2025 10:4 1 AM CDT 02/15/2025 10:43 AM CDT Narrative [facility] - 02/16/2025 7:26 AM CDT FASTING:YES FASTING: YES us Lucian Trinidad MD PhD LAB BLOOD ORDERABLE S Final Result Performing Organization Address [facility] de Phone Number [facility] [address] [place] [address] * CRP (cardiac risk) (02/15/2025 10:41 AM [...] for Disease Control and Prevention and the [place] [employer]. Circulation 2003; 107(3): 499-511. Blood 02/15/2025 10:4 1 AM CDT 02/15/2025 10:43 AM CDT Narrative [facility] - 02/16/2025 6:07 AM CDT FASTING:YES FASTING: YES us Lucian Trinidad MD PhD LAB BLOOD ORDERABLE S Final Result Performing Organization Address [facility] de Phone Number [facility] [employer] [facility] [address] [place] [address] * Creatine kinase (CK), total (02/15/2025 10:41 AM CDT) [facility] CK 82 20 - 239 U/L [employer] Blood 02/15/2025 10:4 1 AM CDT 02/15/2025 10:43 AM CDT Narrative [facility] - 02/16/2025 5:36 AM CDT FASTING:YES FASTING: YES us Lucian Trinidad MD PhD LAB BLOOD ORDERABLE S Final Result Performing Organization Address [facility] de Phone Number [facility] [address] [place] [address] * (ABNORMAL) Comprehensive metabolic panel (02/15/2025 10:41 [...] 5:36 AM CDT FASTING:YES FASTING: YES us Lucina Trinidad MD PhD LAB BLOOD ORDERABLE S Final Result [facility] [address] [place] [address] * Imaging Lumbar/Caudal Epidural Steroid INJ (89700) (02/14/2025 1:38 PM CDT) Narrative [facility] - 02/14/2025 1:38 PM CDT The images from this study are not interpreted by Radiology. Please refer to the physician's procedure / OR operative note. us Amada [place] ASSOCIATE WEB DEVELOPER IMG PAIN MGMT PROCEDURE S Final Result [...] (01/27/2025 2:03 PM CDT) Blood Narrative [facility] - 01/27/2025 2:03 PM CDT Blood draw complete us Lucian Trinidad MD PhD LAB BLOOD ORDERABLE S Final Result [facility] Department [place] [address] * XR Hand Right 3 or More [...] Antibodies against the following antigens: Ashly-1 Ab, TELEHEALTH DIRECTOR Ab, Scl-70 Ab, [place]shaw Ab, SS-A/Ro Ab, and SS- B/La Ab. Further testing for dsDNA, Centromere, or Ribosomal P antibodies is suggested in patient with a positive screen and negative specific antibodies. Current interpretive data was last revised on 2023. Blood 01/24/2025 9:41 AM CDT 01/24/2025 10:43 AM CDT us Lucian Trinidad MD PhD LAB BLOOD ORDERABLE S Final Result Performing Organization Address City/[facility] Co de Phone Number [facility] [place] [address] * Anti-Neutrophilic Cytoplasmic Antibody (ANCA) with Reflex to MPO and PR3 Abs (01/24/2025 9:41 AM CDT) Pathologist [facility] ANCA Negative Blood 01/24/2025 9:41 AM CDT 01/24/2025 10:43 AM CDT us Lucian Trinidad MD PhD LAB BLOOD ORDERABLE S Final Result Performing Organization Address [facility] Co de Phone Number [facility] [place] [address] * Neuromuscular Testing Blood (01/24/2025 12:00 AM CDT) Blood (Serum) 01/24/2025 01/25/2025 Narrative [facility] - 02/06/2025 4:56 PM CDT Please click on the PDF link to view the report containing this result us Lucian Trinidad MD PhD LAB PATHOLOGY ORDER DAVI Final Result Performing Organization Address City/[facility]/ZIP Co de Phone Number [facility] Room [address] [place] [address] * eGFR (01/09/2025 12:30 PM CDT) [facility] eGFR >90 >=60 mL/min/1. 73 m2 Comment: [...] CHUN LAB BLOOD ORDERABLES Flora dowd Result [facility] Department [place] [address] * (ABNORMAL) Differential, auto (01/09/2025 12:30 PM CDT) Pathologist [facility] Neutrophil abs 10.98(H) 1.50 - 6.50 K/cumm Imm gran abs 0.13(H) 0.00 - 0.10 K/cumm [facility] Lymphocyte abs 1.66 0.80 - 3.30 K/cumm [facility] Monocyte abs 1.29(H) 0.20 - 0.80 K/cumm [facility] Eosinophil abs 0.05 0.00 - 0.50 K/cumm [facility] Basophil abs 0.06 0.00 - 0.10 K/cumm [facility] Neutrophil pct 77.5 % [facility] Comment: Interpretive Data Percent cell count reference ranges are not reported, since discordance with absolute values may lead to misinterpretation of CBC data. Current Interpretive Data was last revised on 2017. Imm gran pct 0.9 % [facility] Comment: Interpretive Data Percent cell count reference ranges are not reported, since discordance with absolute values may lead to misinterpretation of CBC data. Current Interpretive Data was last revised on 2017. Lymphocyte pct 11.7 % [facility] Comment: Interpretive Data Percent cell count reference ranges are not reported, since discordance with absolute values may lead to misinterpretation of CBC data. Current Interpretive Data was last revised on 2017. Monocyte pct 9.1 % [facility] Comment: Interpretive Data Percent cell count reference ranges are not reported, since discordance with absolute values may lead to misinterpretation of CBC data. Current Interpretive Data was last revised on 2017. Eosinophil pct 0.4 % [facility] Comment: Interpretive Data Percent cell count reference ranges are not reported, since discordance with absolute values may lead to misinterpretation of CBC data. Current Interpretive Data was last revised on 2017. Basophil pct 0.4 % [facility] Comment: Interpretive Data Percent cell count reference ranges are not reported, since discordance with absolute values may lead to misinterpretation of CBC data. Current Interpretive Data was last revised on 2017. Blood 01/09/2025 12:3 0 PM CDT 01/09/2025 1:18 PM CDT us Shirley CHUN LAB BLOOD ORDERABLES Flora dowd Result [facility] [place] [address] * (ABNORMAL) CBC with auto differential (01/09/2025 12:30 PM CDT) WBC 14.17(H) 3.80 - 9.90 K/cumm Hgb 12.2 11.9 - 15.5 g/dL [facility] Hct 38.2 35.6 - 45.5 % [facility] Plt 417(H) 150 - 400 K/cumm [facility] MPV 10.2 9.1 - 12.3 fL [facility] RBC 4.21 3.90 - 5.20 M/cumm [facility] MCV 90.7 81.3 - 96.4 fL [facility] MCH 29.0 27.1 - 33.3 pg [facility] MCHC 31.9(L) 32.3 - 35.7 g/dL [facility] RDW CV 16.4(H) 11.1 - 14.9 % [facility] RDW SD 54.8(H) 35.7 - 48.1 fL [facility] NRBC abs 0.00 0.00 - 0.01 K/cumm [facility] Blood 01/09/2025 12:3 0 PM CDT 01/09/2025 1:18 PM CDT Shirley CHUN LAB BLOOD ORDERABLES Flora l Result Performing Organization Address [facility] Co de Phone Number [facility] Department [place] [address] * Albumin Creatinine Ratio, Urine (01/09/2025 12:30 PM CDT) Albumin Ur 37.8 mg/L Comment: Interpretive Data No reference range established. Current interpretive data was last revised 2018. Creatinine Ur 353.8 mg/dL [facility] Comment: Interpretive Data No reference range established. Current interpretive data was last revised 2018. Albumin Creatinine Ratio, Ur 11 1 - 29 mg/g [facility] Urine 01/09/2025 12:3 0 PM CDT 01/09/2025 1:18 PM CDT Shirley CHUN LAB URINE ORDERABLES Flora l Result Performing Organization Address City/[facility]/ZIP Co de Phone Number [facility] [place] [address] * Vitamin D 25 hydroxy (01/09/2025 12:30 PM CDT) Pathologist [facility] Vitamin D 25-OH 38 30 - 80 ng/mL Blood 01/09/2025 12:3 0 PM CDT 01/09/2025 1:18 PM CDT Shirley CHUN LAB BLOOD ORDERABLES Flora l Result Performing Organization Address City/[facility] Co de Phone Number [facility] [place] [address] * TSH (01/09/2025 12:30 PM CDT) [facility] Thyroid Stimulating Hormone 1.92 0.30 - 4.20 mcIUnit/mL Blood 01/09/2025 12:3 0 PM CDT 01/09/2025 1:18 PM CDT Result [facility] [facility] LAB BLOOD ORDERABLES Flora l Result Performing Organization Address [facility] Co de Phone Number [facility] [place] [address] * Ferritin (01/09/2025 12:30 PM CDT) [facility] Ferritin 42 13 - 150 ng/mL Blood 01/09/2025 12:3 0 PM CDT 01/09/2025 1:18 PM CDT Iqra Jensen MD LAB BLOOD ORDERABLES Final Resul t Performing Organization Address [facility] Co de Phone Number [facility] [address] * Vitamin B12 (01/09/2025 12:30 PM CDT) Pathologist [facility] Vitamin B12 415 230 - 1,250 pg/mL Blood 01/09/2025 12:3 0 PM CDT 01/09/2025 1:18 PM CDT us [facility] CH[facility] LAB BLOOD ORDERABLES Flora dowd Result [facility] [place] [address] * (ABNORMAL) Lipid panel (01/09/2025 12:30 PM [...] revised on 2018. Triglycerides 334(H) <=149 mg/dL [facility] Comment: Interpretive Data Ages < or [...] on 2018. HDL 75 >=40 mg/dL [facility] Comment: Interpretive Data Ages < or [...] on 2018. LDL, calculated 127 <=129 mg/dL [facility] Comment: Interpretive Data Ages < or [...] revised on 2024. Non-HDL Cholesterol 185 mg/dL [facility] Comment: Interpretive Data Ages < or [...] last revised on 2018. Chol/HDL ratio 3 [facility] Blood 01/09/2025 12:3 0 PM CDT 01/09/2025 1:18 PM CDT us [facility] LAB BLOOD ORDERABLES Flora dowd Result [facility] [place] [address] * (ABNORMAL) Comprehensive metabolic panel (01/09/2025 12:30 PM CDT) Sodium 139 135 - 145 mmol/L Potassium, pl 4.4 3.3 - 4.9 mmol/L [facility] Chloride 99 97 - 110 mmol/L [facility] CO2 27 22 - 32 mmol/L [facility] Anion gap 13 2 - 15 mmol/L [facility] BUN 22 6 - 25 mg/dL [facility] Creatinine 0.74 0.60 - 1.10 mg/dL [facility] Glucose 314(H) 70 - 199 mg/dL [facility] Comment: Interpretive Data Fasting glucose >/= 126 [...] 2022. Calcium 9.2 8.5 - 10.3 mg/dL [facility] Bilirubin, total 0.3 0.1 - 1.2 mg/dL [facility] Protein, pl 6.7 6.5 - 8.5 g/dL [facility] Albumin 4.0 3.5 - 5.0 g/dL [facility] Alk phos 54 40 - 130 Units/L [facility] ALT 69(H) 7 - 45 Units/L [facility] AST 25 10 - 45 Units/L [facility] Blood 01/09/2025 12:3 0 PM CDT 01/09/2025 1:18 PM CDT Shirley CHUN LAB BLOOD ORDERABLES Flora dowd Result [facility] [place] [address] * Screening Mammogram Bilateral W Vincenzo (01/09/2025 [...] AM CDT Narrative 12/23/2024 9:46 AM CDT [address] [place] [address] Echocardiogram Report Patient Name: WALT HUITRON : 1975 Study Date: 12/23/2024 7:09:04 AM Gender: F Tech: ASSOCIATE WEB DEVELOPER Location: Echo Lab 1 Ref Provider: CANELO [...] Procedure Note German Weathers MD - 12/23/[address] [place] [address] Echocardiogram Report Patient Name: WALT HUITRON : 1975 Study Date: 12/23/2024 7:09:04 AM Gender: F Tech: ASSOCIATE WEB DEVELOPER Location: Echo Lab 1 Ref Provider: CANELO [...] Camacho MD - 04/02/2022 9:28 AM CDT [facility] Patient Name: Walt Huitron Procedure Date: 04/02/2022 [...] scope was passed under direct vision. TheColonoscope [id number] was introduced through the anus and advanced [...] 9:28 AM Procedure Code(s): --- Professional --- 42385, Colonoscopy, flexible; with biopsy, single or multiple Diagnosis Code(s): --- Professional --- Z12.11, Encounter for screening for malignant neoplasm of colon D12.3, Benign neoplasm of transverse colon (hepatic flexure orsplenic flexure) D12.4, Benign neoplasm of descending colon D12.8, Benign neoplasm of rectum CPT copyright 2020 [employer]. All rights reserved. The codes documented in this report are preliminary and upon doctor naturopathic reviewmay be revised to meet current compliance requirements. Recognized by the [employer] for promoting quality in endoscopy Ad Camacho MD ENDOSCOPY PROCEDURES Final Resul t * Diabetic Foot Exam (03/26/2021) Adamariss Art Staley MA - 03/26/2021 In care everywhere Historical Provider HEALTH MAINTENANCE Final Result from Last 3 Months or Most Recently Relevant to Health Maintenance Insurance [email or web address] [facility] Advance Directives For more information, please contact: [phone] * Full Code (Latest Code Status on File) Date Activated Date Inactivated Comments 04/02/2022 9:27 AM 04/02/2022 4:47 PM * Full Code Date Activated Date Inactivated Comments 04/02/2022 9:27 AM 04/02/2022 9:27 AM Care Teams Glass Enamel Mixer Relationship Specialty [place] [address] [facility] [address] [place] [address] PCP - General Internal Medicine 04/06/24 Ann Serrano MD Referring Physician Endocrinology Diabetes & Metabolism 06/08/20
--- OUTSIDE RECORDS SUMMARY | 2025-02-17 04:33 | XMS_ITS | Encounter Summary ---
Author Organization [facility] Address [address] [place] [address] Phone Care Team Providers Care Director Call Name Role Phone Ann Serrano MD Unavailable [phone] Lynn Rodriguez MD Primary Care Provider Encounter Details Date Type Department Care Team (Late st Contact Info) Description 01/24/2025 Results Follow-Up [facility] Rheumatology [address] [facility] 5th [place] [address] [place] [address] Lucian Trinidad MD PhD [address] [place] [address] XR Wrist Right 3 or [...] on file Legal Sex Female 11:54 PM HEDIS ABSTRACTOR Gender Identity Female 09/19/2020 8:37 AM HEDIS ABSTRACTOR Sexual Orientation Straight 09/19/2020 8: 37 AM HEDIS ABSTRACTOR documented as of this encounter Plan of Treatment Upcoming Encounters Date Type Department Care Team (Latest Contact Info) Description 04/27/2025 7:30 AM CDT Hospital Encounter [address] [address] Ad Camacho MD [address] [facility] [address] [place] [address] 04/27/2025 7:30 AM CDT - 04/27/2025 8:00 AM CDT Surgery [address] [address] Ad Camacho MD 4 [facility] [address] [place] [address] ESOPHAGOGASTRODUODENOSCOPY Scheduled Procedures Name Priority Associated Diagnoses Date/Ti ut ESOPHAGOGASTRODUODENOSCOPY Dysphagia, unspecified type 04/27/2025 7:30 AM CDT documented as of this encounter Visit Diagnoses Not on filedocumented in this encounter Care Teams Director Call Relationship Specialty [place] [address] [address] PCP - General Internal Medicine 04/06/24 Ann Serrano MD Referring Physician Endocrinology Diabetes & Metabolism 06/08/20 documented as of this encounter
--- OUTSIDE RECORDS SUMMARY | 2025-02-17 04:33 | XMS_ITS | Encounter Summary ---
Author Organization [facility] Healthcare Address [address] [place] [address] Care Team Providers Care Customs Director Name Role Phone Ann Serrano MD Unavailable [phone] Lynn Rodriguez MD Primary Care Provider Encounter Details Date Type Department Care Team (Late st Contact Info) Description 01/09/2025 Results Follow-Up [facility] Medical Group Sleep Medicine at [address] [place] [address] Iqra Jensen MD [address] [place] [address] [address] [place] [address] Ferritin Social History Tobacco Use [...] on file Legal Sex Female 11:54 PM FLAT CLOTHIER Gender Identity Female 09/19/2020 8:37 AM FLAT CLOTHIER Sexual Orientation Straight 09/19/2020 8: 37 AM FLAT CLOTHIER documented as of this encounter Miscellaneous Notes [...] Description 04/27/2025 7:30 AM CDT Hospital Encounter [address] [address] Ad Camacho MD [address] [place] [address] [address] [place] [address] 04/27/2025 7:30 AM CDT - 04/27/2025 8:00 AM CDT Surgery [address] [address] Ad Camacho MD [address] [place] [address] [address] [place] [address] ESOPHAGOGASTRODUODENOSCOPY Scheduled Procedures Name Priority Associated Diagnoses Date/Ti de ESOPHAGOGASTRODUODENOSCOPY Dysphagia, unspecified type 04/27/2025 7:30 AM CDT documented as of this encounter Visit Diagnoses Not on filedocumented in this encounter Care Teams Customs Director Relationship Specialty [place] [address] [address] PCP - General Internal Medicine 04/06/24 Ann Serrano MD Referring Physician Endocrinology Diabetes & Metabolism 06/08/20 documented as of this encounter
--- OUTSIDE RECORDS SUMMARY | 2025-02-17 04:33 | XMS_ITS | Encounter Summary ---
Author Organization [facility] Health Address [address] [facility] [place] [address] Care Team Providers Care Food Processing Scientist Name Role Phone Tiffany Cox MD Primary Care Provider Unavailable Kishor Saleh MD Primary Care Provider Encounter Details Date Type Department Care Team (Late st Contact Info) Description 07/03/2023 Lab Requisition [facility] - Derm[facility] Lab [address] [place] [id number] [place] [address] [facility] [address] [place] [address] Social History Tobacco Use Types Packs/Day Years Used Date Smoking Tobacco: Never Assessed Comments Unknown Sex and Gender Information Value Date Recorded Sex Assigned at Not on file Legal Sex Female 4:50 AM FARMER CASH GRAIN Gender Identity Not on file Sexual Orientation Not on file documented as of this encounter Plan of Treatment Not on file documented as of this encounter Visit Diagnoses Not on filedocumented in this encounter Additional Health Concerns Infection Onset Date Last Indicated Resolved Time COVID-19 Under Investigation 08/13/2024 08/13/2024 08/13/2024 11:30 PM FARMER CASH GRAIN documented as of this encounter Care Teams Food Processing Scientist Relationship Specialty Start Date End Date Tiffany Cox MD PCP - General Internal Medicine 05/16/13 07/30/23 Kishor Saleh MD [address] [place] [address] [address] [place] [address] PCP - General Internal Medicine 07/31/23 documented as of this encounter
--- OUTSIDE RECORDS SUMMARY | 2025-02-17 04:33 | XMS_ITS | Encounter Summary ---
Author Organization [facility] Health Address [address] [facility] [place] [address] Care Team Providers Care Stemmer Machine Name Role Phone Tiffany Cox MD Primary Care Provider Unavailable Kishor Saleh MD Primary Care Provider Encounter Details Date Type Department Care Team (Late st Contact Info) Description 07/03/2023 Lab Requisition [facility]erm[facility] Lab [address] [place] [address] [place] [address] [facility] [address] [place] [address] Social History Tobacco Use Types Packs/Day Years Used Date Smoking Tobacco: Never Assessed Comments Unknown Sex and Gender Information Value Date Recorded Sex Assigned at Not on file Legal Sex Female 4:50 AM OIL WELL SERVICES SUPERINTENDENT Gender Identity Not on file Sexual Orientation Not on file documented as of this encounter Plan of Treatment Not on file documented as of this encounter Visit Diagnoses Not on filedocumented in this encounter Additional Health Concerns Infection Onset Date Last Indicated Resolved Time COVID-19 Under Investigation 08/13/2024 08/13/2024 08/13/2024 11:30 PM OIL WELL SERVICES SUPERINTENDENT documented as of this encounter Care Teams Stemmer Machine Relationship Specialty Start Date End Date Tiffany Cox MD PCP - General Internal Medicine 05/16/13 07/30/23 Kishor Saleh MD [address] [place] [address] [address] [place] [address] PCP - General Internal Medicine 07/31/23 documented as of this encounter
--- OUTSIDE RECORDS SUMMARY | 2025-02-17 04:33 | XMS_ITS | Encounter Summary ---
Author Organization [facility] Address [address] [facility] [place] [address] Care Team Providers Care Manager Spanish Name Role Phone Tiffany Cox MD Primary Care Provider Unavailable Kishor Saleh MD Primary Care Provider Encounter Details Date Type Department Care Team (Late st Contact Info) Description 07/03/2023 Lab Requisition [facility] - DermPath Lab [address] [place] [address] [place] [address] [address] Social History Tobacco Use Types Packs/Day Years Used Date Smoking Tobacco: Never Assessed Comments Unknown Sex and Gender Information Value Date Recorded Sex Assigned at Not on file Legal Sex Female 4:50 AM ENVIRONMENTAL LABORATORY TECHNICIAN Gender Identity Not on file Sexual Orientation Not on file documented as of this encounter Plan of Treatment Not on file documented as of this encounter Procedures Procedure Name Priority Date/Time Associated Diagnosis Comments IMMUNOFLUORESCENT STUDY DERM Routine 07/01/2023 3:33 AM ENVIRONMENTAL LABORATORY TECHNICIAN documented in this encounter Results * IMMUNOFLUORESCENT STUDY DERM (07/01/2023 3:33 AM ENVIRONMENTAL LABORATORY TECHNICIAN) Case Report Dermatopathol ogy Report Case: [id number] Authorizing Provider: Kendrick Christopher MD Collected: 07/01/2023 03:33 AM Ordering Location: [facility] DermPath Lab Received: 07/03/2023 12:13 PM Pathologist: Bella Schwab MD Specimen: Skin, right superior han 3:46 PM [facility] Final Diagnosis Specimen A. SKIN, right superior han: COLLOID BODIES (L98.9) (see microscopic description) (see fixed tissue results) 3 3:46 PM [facility] DERMAT[facility]OR[facility] at 1546 ENVIRONMENTAL LABORATORY TECHNICIAN Direct Immunofluorescence Report - Specimen A Specimen A IgA IgM IgG C3 CollV Fibrinogen Epidermis Negative Negative Negative Negative Negative Negative Basement Membrane Negative Negative Negative Negative 2+ Negative Vessels Negative Negative Negative Negative 2+ Negative Interstitium Colloid Colloid Colloid Negative Negative Non specific 3 3:46 PM [facility] Clinical History Rash; R/O Leukocytoclas tic Vasculitis, Livedo Reticularis 3 3:46 PM [facility] Gross Description Specimen A: Received is one Jatinder's media filled container labeled with the patient's name and designated right superior han. The specimen consists of a punch biopsy measuring 5x4x4 mm. The specimen is submitted in whole for direct immunofluores cence testing. 3:46 PM [facility] Microscopic Description Specimen A. [...] See fixed tissue results. 3 3:46 PM [facility] Disclaimer An external and internal positive and negative controls are appropriate for the histochemical , immunohistoch emical and immunofluores cence stain(s) in this case (if any), except where stated explicitly. The performance characteristi cs of the stain(s) cited in this report were developed and its performance characteristi c determined by the Dermatopathol ogy Laboratory at [facility], directed by Dr. Arnol Perea. These tests need not be, and therefore are not, approved by the [place] Food and Drug Administratio n. The tests are used for clinical purposes. Billing Codes Specimen Charges Stain Charges 17344 74301 36574 21113 82894 60439 1 1 1 1 1 1 3 3:46 PM ENVIRONMENTAL LABORATORY TECHNICIAN DERMATOPATHOLOGY LABORATORY Embedded Images 3 3:46 PM ENVIRONMENTAL LABORATORY TECHNICIAN DERMATOPATHOLOGY LABORATORY Pathology/Cytolo gy TISSUE SPECIMEN FROM SKIN / Unknown 07/01/2023 3:33 AM ENVIRONMENTAL LABORATORY TECHNICIAN 07/03/2023 12:13 PM ENVIRONMENTAL LABORATORY TECHNICIAN Kendrick Christopher MD LAB - PATHOLOGY/CYTOLOGY O RDERABLES Final Result DERMATOPATHOLOGY LABORATORY [facility] - Department of Dermatology [facility] [address] [place] [address], [address]rd [address] [phone] documented in this encounter Visit Diagnoses Not on filedocumented in this encounter Additional Health Concerns Infection Onset Date Last Indicated Resolved Time COVID-19 Under Investigation 08/13/2024 08/13/2024 08/13/2024 11:30 PM ENVIRONMENTAL LABORATORY TECHNICIAN documented as of this encounter Care Teams Manager Spanish Relationship Specialty Start Date End Date Tiffany Cox MD PCP - General Internal Medicine 05/16/13 07/30/23 Kishor Saleh MD [address] [place] [address] [address] [place] [address] PCP - General Internal Medicine 07/31/23 documented as of this encounter
--- OUTSIDE RECORDS SUMMARY | 2025-02-17 04:33 | XMS_ITS | Encounter Summary ---
Author Organization [facility] Healthcare Address [address] [place] [address] Care Team Providers Care Process Development Technician Name Role Phone Ann Serrano MD Unavailable [phone] Lynn Rodriguez MD Primary Care Provider Encounter Details Date Type Department Care Team (Late st Contact Info) Description 01/03/2025 Results Follow-Up [facility] Medical Group Pulmonary at [address] [place] [address] Josiah Doan [address] [place] [address] Transthoracic Echo (TTE) Complete W [...] on file Legal Sex Female 11:54 PM TRANSPORT COMPANY MANAGER Gender Identity Female 09/19/2020 8:37 AM TRANSPORT COMPANY MANAGER Sexual Orientation Straight 09/19/2020 8: 37 AM TRANSPORT COMPANY MANAGER documented as of this encounter Plan of Treatment Upcoming Encounters Date Type Department Care Team (Latest Contact Info) Description 04/27/2025 7:30 AM CDT Hospital Encounter [address] [address] Ad Camacho MD [address] [facility] [address] [place] [address] 04/27/2025 7:30 AM CDT - 04/27/2025 8:00 AM CDT Surgery [address] [address] Ad Camacho MD [address] [facility] [address] [place] [address] ESOPHAGOGASTRODUODENOSCOPY Scheduled Procedures Name Priority Associated Diagnoses Date/Ti la ESOPHAGOGASTRODUODENOSCOPY Dysphagia, unspecified type 04/27/2025 7:30 AM CDT documented as of this encounter Visit Diagnoses Not on filedocumented in this encounter Care Teams Process Development Technician Relationship Specialty [place] [address] [address] PCP - General Internal Medicine 04/06/24 Ann Serrano MD Referring Physician Endocrinology Diabetes & Metabolism 06/08/20 documented as of this encounter
--- OUTSIDE RECORDS SUMMARY | 2025-02-17 04:33 | XMS_ITS | Encounter Summary ---
Author Organization [facility] Address [address] [place] [address] Phone Care Team Providers Care Puzzle Assembler Name Role Phone Ann Serrano MD Unavailable [phone] Lynn Rodriguez MD Primary Care Provider Encounter Details Date Type Department Care Team (Late st Contact Info) Description 01/09/2025 Results Follow-Up [facility] Endocrinology Metabolism and Lipid [address] [facility] Advanced Medicine 13th [place] [address] [place] [address] Shirley Teixeira PA [address] [place] [address] Vitamin D 25 hydroxy, Vitamin B12, TSH, [...] on file Legal Sex Female 11:54 PM REFINERY OPERATOR POLYMERIZATION PLANT Gender Identity Female 09/19/2020 8:37 AM REFINERY OPERATOR POLYMERIZATION PLANT Sexual Orientation Straight 09/19/2020 8: 37 AM REFINERY OPERATOR POLYMERIZATION PLANT documented as of this encounter Ordered Prescriptions [...] Description 04/27/2025 7:30 AM CDT Hospital Encounter [address] [address]Ad Garcia MD [address] [place] [address] [address] [place] [address] 04/27/2025 7:30 AM CDT - 04/27/2025 8:00 AM CDT Surgery [address] [address]Ad Garcia MD [address] [place] [address] [address] [place] [address] ESOPHAGOGASTRODUODENOSCOPY Scheduled Orders Name Type Priority Associated [...] documented as of this encounter Care Teams Puzzle Assembler Relationship Specialty [place] [address] [facility] [address], [place] [address] PCP - General Internal Medicine 04/06/24 Ann Serrano MD Referring Physician Endocrinology Diabetes & Metabolism 06/08/20 documented as of this encounter
--- OUTSIDE RECORDS SUMMARY | 2025-02-17 04:33 | XMS_ITS | Encounter Summary ---
Author Organization [facility] Healthcare Address [address] [place] [address] Care Team Providers Care Automotive Parts Salesperson Name Role Phone Ann Serrano MD Unavailable [phone] Lynn Rodriguez MD Primary Care Provider Reason for Visit * Reason Comments PT Treatment * Consultation (Routine) - Authorized Specialty Diagnoses / Procedures Referred By Contmary anne sosa Referred To Contact Physical Therapy [place] [address] [facility] [address] [place] [address] Phone: tel: fax: [facility] Rehabilitation Services at [address] [address] Phone: tel: fax: Referral ID Status Reason Start Date Expiration Date Visits Requested Visits Authorized [id number] Authorized Specialty Services Required 12/21/2024 01/20/2026 24 24 Encounter Details Date Type Department Care Team (Late st Contact Info) Description 02/16/2025 9:00 AM CDT Therapy [facility] Rehabilitation Services at [address] [address] Adelina Little, PT Lymphedema (Primary [...] on file Legal Sex Female 11:54 PM SOFTWARE SECURITY CONSULTANT Gender Identity Female 09/19/2020 8:37 AM SOFTWARE SECURITY CONSULTANT Sexual Orientation Straight 09/19/2020 8: 37 AM SOFTWARE SECURITY CONSULTANT documented as of this encounter Progress Notes * Adelina Little, PT - 02/16/2025 9:00 AM CDT [facility] Physical Therapy Visit Daily [...] Treatment: -- Involved Side: BILATERAL Initials [place] [facility] [place]25 [facility] [place]/30/25 02/07/2025 [place] 02[place]25 [place] 02/16/25 # of visits / Approved 02/23 03/26 04/26 05/26 06/26 [facility] - no auth needed Exp: Start [...] Discussed shoes compatible with PAC band--Dr. Painter [facility] with heel strap, velcro strap sandals Patient [...] raise up on your heels then toes. Bulgarian floor Pump ankles up and down. Spread [...] Description 04/27/2025 7:30 AM CDT Hospital Encounter [address] [address] Ad Camacho MD [address] [place] [address] [place] [address] 04/27/2025 7:30 AM CDT - 04/27/2025 8:00 AM CDT Surgery [address] [address] Ad Camacho MD [address] [facility] [place] [place] [address] ESOPHAGOGASTRODUODENOSCOPY Scheduled Procedures Name Priority Associated Diagnoses Date/Ti ak ESOPHAGOGASTRODUODENOSCOPY Dysphagia, unspecified type 04/27/2025 7:30 AM CDT documented as of this encounter Visit Diagnoses Diagnosis Dysphagia- Primary Lymphedema- Primary Other noninfectious lymphedema Decreased functional mobility and endurance Dysphagia, unspecified type documented in this encounter Care Teams Automotive Parts Salesperson Relationship Specialty [place] [address] [address] PCP - General Internal Medicine 04/06/24 Ann Serrano MD Referring Physician Endocrinology Diabetes & Metabolism 06/08/20 documented as of this encounter
--- OUTSIDE RECORDS SUMMARY | 2025-02-17 04:33 | XMS_ITS | Encounter Summary ---
Author Organization [facility] Address [address] [facility] [place] [address] Care Team Providers Care Ultimate Hoops Scoreboard Operator Name Role Phone Tiffany Cox MD Primary Care Provider Unavailable Kishor Saleh MD Primary Care Provider [phone] Encounter Details Date Type Department Care Team (Late st Contact Info) Description 07/03/2023 Lab Requisition [facility] [address] [place] [id number] [place] [address] [facility] [address] [address] [place] [id number] Social History Tobacco Use Types Packs/Day Years Used Date Smoking Tobacco: Never Assessed Comments Unknown Sex and Gender Information Value Date Recorded Sex Assigned at Not on file Legal Sex Female 4:50 AM DENITRATOR Gender Identity Not on file Sexual Orientation Not on file documented as of this encounter Plan of Treatment Not on file documented as of this encounter Visit Diagnoses Not on filedocumented in this encounter Additional Health Concerns Infection Onset Date Last Indicated Resolved Time COVID-19 Under Investigation 08/13/2024 08/13/2024 08/13/2024 11:30 PM DENITRATOR documented as of this encounter Care Teams Ultimate Hoops Scoreboard Operator Relationship Specialty Start Date End Date Tiffany Cox MD PCP - General Internal Medicine 05/16/13 07/30/23 Kishor Saleh MD [address] [place] [address] [address] [address] [place] [id number] PCP - General Internal Medicine 07/31/23 documented as of this encounter
--- OUTSIDE RECORDS SUMMARY | 2025-02-17 04:33 | XMS_ITS | Clinical Summary ---
Author Organization [facility] Address [address] [facility] [place] [address] Care Team Providers Care Realty Specialist Name Role Phone Kishor Saleh MD Primary Care Provider Source Comments [facility],non-owned Affiliates and Associated Physician Practices is amultiple site organization consisting of ambulatory clinics and hospital sitesin [place], [place], [place] and [place]. This disclosure is being madepursuant to the Care Everywhere program and may not contain all information available regarding this patient. Last updated 18.[facility] Allergies Active Allergy Reactions Criticality Noted Date [...] fluticasone propionate (Flonase) 50 MCG/ACT nasal spray [place] 2 (two) sprays into each nostril once [...] vitamin D, ergocalciferol , (Drisdol) 1.25 MG (25631 UT) capsule Take 1 (one) capsule by [...] any time in the past 12 m [facility], were you homeless or living in a snf (including now)? No 08/15/2024 Comments Unknown Sex and Gender Information Value Date Recorded Sex Assigned at Not on file Legal Sex Female 4:50 AM GAS PLUMBING INSPECTOR Gender Identity Not on file Sexual Orientation Not on file Last Filed Vital Signs Vital Sign Reading Time Taken Comments Blood Pressure 154/92 08/18/2024 12:25 PM GAS PLUMBING INSPECTOR Pulse 102 08/18/2024 12:25 PM GAS PLUMBING INSPECTOR Temperature 36.7 C (98.1 F) 08/18/2024 12:25 PM GAS PLUMBING INSPECTOR Respiratory Rate 23 08/18/2024 12:2 5 PM GAS PLUMBING INSPECTOR Oxygen Saturation 90% 08/18/2024 12: 25 PM GAS PLUMBING INSPECTOR Inhaled Oxygen Concentration 21% 08/18/2024 2 :00 PM GAS PLUMBING INSPECTOR Weight 132.6 kg (292 lb 4.8 oz) 08/18/2024 4:00 AM GAS PLUMBING INSPECTOR Height 167.6 cm (5' 6) 08/13/2024 5:14 PM GAS PLUMBING INSPECTOR Body Mass Index 47.18 08/13/2024 5:14 PM GAS PLUMBING INSPECTOR Plan of Treatment Health Maintenance Due Date [...] (CALCIUM TOTAL) AM Draw 08/17/2024 4:16 AM GAS PLUMBING INSPECTOR HEMOGLOBIN A1C Routine 08/14/2024 3:27 AM GAS PLUMBING INSPECTOR from Last 3 Months or Most Recently Relevant to Health Maintenance Results * (ABNORMAL) BASIC METABOLIC PANEL (CALCIUM TOTAL) (08/17/2024 4:16 AM GAS PLUMBING INSPECTOR) Glucose 139(H) 70 - 99 mg/dL 08/17/2024 4:53 AM GAS PLUMBING INSPECTOR [facility] Sodium 140 136 - 145 mmol/L 08/17/2024 4:53 AM GAS PLUMBING INSPECTOR [facility] Potassium 3.5 3.5 - 5.1 mmol/L 08/17/2024 4:53 AM GAS PLUMBING INSPECTOR [facility] Chloride 108(H) 98 - 107 mmol/L 08/17/2024 4:53 AM GAS PLUMBING INSPECTOR [facility] CO2 24 22 - 29 mmol/L 08/17/2024 4:53 AM GAS PLUMBING INSPECTOR [facility] Calcium 8.9 8.4 - 10.4 mg/dL 08/17/2024 4:53 AM [facility] Anion Gap 8 6 - 16 mmol/L 08/17/2024 4:53 AM [facility] BUN 15 5.3 - 18.7 mg/dL 08/17/2024 4:53 AM [facility] Creatinine 0.65 0.57 - 1.11 mg/dL 08/17/2024 4:53 AM [facility] eGFR by CKD-EPI >90 >=90 mL/min/1.7 3 m2 08/17/2024 4:53 AM [facility] Blood BLOOD SPECIMEN / Unknown Venipuncture / Unknown 08/17/2024 4:16 AM GAS PLUMBING INSPECTOR 08/17/2024 4:30 AM [facility] Alexus Ramirez MD LAB - CHEMISTRY ORDERABLES Final Result [facility] [address] [place] [address] * (ABNORMAL) HEMOGLOBIN A1C (08/14/2024 3:27 AM [facility]) Hemoglobin A1c 10.1(H) <5.7 % 08/14/2024 3:48 AM [facility] Estimated Average Glucose 243 mg/dL 08/14/2024 3:48 AM [facility] Blood BLOOD SPECIMEN / Unknown Venipuncture / Unknown 08/14/2024 3:27 AM GAS PLUMBING INSPECTOR 08/14/2024 3:37 AM [facility] Narrative [facility] - 08/14/2024 3:48 AM [facility] [...] MD LAB - CHEMISTRY ORDERABLES Final Result [facility] [address] [place] [address] from Last 3 Months or Most Recently Relevant to Health Maintenance Insurance [facility] Advance Directives * Full Code (Latest Code Status on File) Date Activated Date Inactivated Comments 08/13/2024 3:54 PM 08/18/2024 6:24 PM Care Teams Realty Specialist Relationship Specialty Start Date End Date Kishor Saleh MD [address] [facility] [address] [address] PCP - General Internal Medicine 07/31/23
--- OUTSIDE RECORDS SUMMARY | 2025-02-17 04:33 | XMS_ITS | Encounter Summary ---
Author Organization [facility] [employer] [facility] Address [address] [place] [address] Phone Care Team Providers Care Thaw Shed Heater Tender Name Role Phone Kishor Saleh MD Primary Care Provider [phone] Ann Serrano MD Unavailable [phone] No, Physician Primary Care Provider [phone] Kishor Saleh MD Primary Care Provider [phone] Lynn Rodriguez MD Primary Care Provider Encounter Details Date Type Department Care Team (Late st Contact Info) Description 09/30/2017 Orders Only [facility] ProviderStephenie MD [address] [place] [address] Social History Tobacco Use Types Packs/Day Years Used Date Smoking Tobacco: Never Smokeless Tobacco: Never Alcohol Use Standard Drinks/Week Comments No 0 (1 standard drink = 0.6 oz pur e alcohol) Comments Unknown Sex and Gender Information Value Date Recorded Sex Assigned at Not on file Legal Sex Female 11:54 PM FASHION DIRECTOR 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 PLAN SALES Gender Identity Female 09/19/2020 8:37 AM FASHION DIRECTOR [employer]Y PLAN SALES Sexual Orientation Straight 09/19/2020 8: 37 AM FASHION DIRECTOR PARTY PLAN SALES documented as of this encounter Plan of Treatment Upcoming Encounters Date Type Department Care Team (Latest Contact Info) Description 04/27/2025 7:30 AM CDT Hospital Encounter [facility] [address] [place] [address] Ad Camacho MD [address] [place] [address] [address] [place] [address] 04/27/2025 7:30 AM CDT - 04/27/2025 8:00 AM CDT Surgery [facility] [address] [place] [address] Ad Camacho MD [address] [place] [address] [address], [place] [address] ESOPHAGOGASTRODUODENOSCOPY Scheduled Procedures Name Priority Associated Diagnoses Date/Ti me ESOPHAGOGASTRODUODENOSCOPY Dysphagia, unspecified type 04/27/2025 7:30 AM CDT documented as of this encounter Procedures Procedure Name Priority Date/Time Associated Diagnosis Comments DISCHARGE LABORATORY CUMULATIVE REPORT 09/30/2017 12:00 AM FASHION DIRECTOR [employer]Y PLAN SALES documented in this encounter Results * DISCHARGE LABORATORY CUMULATIVE REPORT (09/30/2017 12:00 AM FASHION DIRECTOR [employer]Y PLAN SALES) Narrative 09/30/2017 12:00 AM FASHION DIRECTOR PARTY PLAN SALES Ordered by an unspecified provider. us Historical Provider LAB BLOOD ORDERABLES Flora l Result documented in this encounter Visit Diagnoses Not on filedocumented in this encounter Additional Health Concerns Infection Onset Date Last Indicated Resolved Time COVID: Suspected 08/13/2022 08/13/2022 08/13/2022 1:16 PM FASHION DIRECTOR [employer]Y PLAN SALES COVID: Suspected 11/07/2024 11/07/2024 11/07/2024 2:20 PM CDT documented as of this encounter Care Teams Thaw Shed Heater Tender Relationship Specialty Start Date End Date Kishor Saleh MD PCP - General 09/28/08 11/16/23 No, Physician PCP - General 11/17/23 12/28/23 Kishor Saleh MD [address] [address] PCP - General Internal Medicine 12/29/23 04/05/24 [place] [address] [facility] [address], [place] [address] PCP - General Internal Medicine 04/06/24 Ann Serrano MD Referring Physician Endocrinology Diabetes & Metabolism 06/08/20 documented as of this encounter
--- OUTSIDE RECORDS SUMMARY | 2025-02-17 04:33 | XMS_ITS | Referral Summary ---
Author Organization [facility] Medical Office Building A Address [address] [place] [address] Care Team Providers Care Display Fabricator Name Role Phone Ann Serrano MD Unavailable [phone] Lynn Rodriguez MD Primary Care Provider Encounters Date Type Department Care Team Description 02/16/2025 9:00 AM CDT Therapy [facility] Rehabilitation Services at [address] [id number] Adelina Little, PT Lymphedema (Primary Dx); Decreased functional mobility and endurance 02/15/2025 9:15 AM CDT Office Visit [facility] Primary Care at [place] [id number] [address] Lynn Rodriguez MD Uncontrolled type 2 diabetes mellitus with hyperglycemia (HCC) (Primary Dx); Benign hypertension; Mixed hyperlipidemia; Morbid obesity with BMI of 50.0-59.9, adult (HCC); Moderate persistent asthma without complication; Class 3 severe obesity due to excess calories with serious comorbidity and body mass index (BMI) of 50.0 to 59.9 in adult; oil heaterman (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); Chronic hypoxic respiratory failure (HCC); Lymphedema; Sacroiliitis; Radiculopathy, lumbosacral region; Spinal stenosis of lumbar region with neurogenic claudication; Autoimmune disease 02/14/2025 12:59 PM CDT - 02/14/2025 11:59 PM CDT Hospital Encounter [facility] [address] [place] [id number] Adam Corrales MD Radiculopathy, lumbosacral region [M54.17] (Primary Dx); Spinal stenosis of lumbar region with neurogenic claudication Discharge Disposition: Discharge to home or self care 02/09/2025 Orders Only [facility] Sleep Medicine at [address] [address], [place] [address] Iqra Jensen MD JEREMY (obstructive sleep apnea) (Primary Dx) 02/09/2025 9:00 AM CDT Therapy [facility] at [address] [address] Adelina Little, PT Lymphedema (Primary Dx); Decreased functional mobility and endurance 02/07/2025 Plan of Care Documentation [facility] Services at [address] [address] 02/07/2025 12:00 PM CDT Therapy [facility] Services at [address] [address] Ele Vazquez, PT Lymphedema (Primary Dx); Decreased functional mobility and endurance 02/06/2025 9:30 AM CDT - 02/06/2025 11:59 PM CDT Hospital Encounter [facility] [address] [place] [address] Amada Baldwin NP Spinal stenosis of lumbar region with neurogenic claudication (Primary Dx); Radiculopathy, lumbosacral region; Sacroiliitis; Chronic right-sided low back pain with right-sided sciatica; Uncontrolled type 2 diabetes mellitus with hyperglycemia (HCC); Morbid obesity with BMI of 50.0-59.9, adult (HCC); Benign hypertension Discharge Disposition: Discharge to home or self care 02/02/2025 3:02 PM CDT - 02/02/2025 5:37 PM CDT Emergency [facility] Emergency Department [address] [place] [phone] Sumit Yu MD Fall, initial encounter (Primary Dx) Discharge Disposition: Discharge to home or self care 02/02/2025 Telephone [facility] Services at [address] [place] [address] Adelina Little, PT Appointment 02/02/2025 2:04 PM CDT - 02/02/2025 11:59 PM CDT Hospital Encounter [facility] and Radiology [address] [place] [address] Adam Corrales MD Chronic low back pain with sciatica, sciatica laterality unspecified, unspecified back pain laterality Discharge Disposition: Discharge to home or self care 01/30/2025 12:00 PM CDT Therapy [facility] Services at [address] [address] Tiffanie Cantu, FLACA Lymphedema (Primary Dx); Decreased functional mobility and endurance 01/24/2025 Results Follow-Up [facility] [address] [place] [address] Advanced Medicine 5th [place] [address] Lucian Trinidad MD PhD XR Wrist Right 3 or More Views 01/24/2025 9:49 AM CDT - 01/24/2025 11:59 PM CDT Hospital Encounter [facility] [address] [place] [address] Lucian Trinidad MD PhD Cutaneous vasculitis Discharge Disposition: Discharge to home or self care 01/24/2025 10:15 AM CDT Lab [facility] [address] [place] [phone] 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 9:00 AM CDT Office Visit [facility] [address] [place] [address] Medicine 5th [place] [address] [place] [address] Lucian Trinidad MD PhD Cutaneous vasculitis 01/23/2025 Telephone [facility] Gastroenterology at [address] [place] [address] Graciela Shultz 01/23/2025 12:00 PM CDT Therapy [facility] Services at [address] [address] Tiffanie Cantu, PT Lymphedema (Primary Dx); Decreased functional mobility and endurance 01/20/2025 2:00 PM CDT Therapy [facility] Rehabilitation Services at [address] [address] Tiffanie Cantu, PT Lymphedema (Primary Dx); Decreased functional mobility and endurance 01/19/2025 7:00 PM CDT - 01/19/2025 11:59 PM CDT Hospital Encounter [facility] [address] [place] [address] Obstructive sleep apnea Discharge Disposition: Discharge to home or self care 01/18/2025 3:00 PM CDT Therapy [facility] Services at [address] [address] Tiffanie Cantu, PT Lymphedema (Primary Dx); Decreased functional mobility and endurance 01/11/2025 1:00 PM CDT Therapy [facility] Rehabilitation Services at [address] [address] Tiffanie Cantu, PT Lymphedema (Primary Dx); Decreased functional mobility and endurance 01/10/2025 12:21 PM CDT - 01/10/2025 11:59 PM CDT Hospital Encounter [facility] [address] [place] [address] Adam Corrales MD Chronic low back pain with sciatica, sciatica laterality unspecified, unspecified back pain laterality (Primary Dx); Acute right-sided low back pain with right-sided sciatica; Sacroiliitis; Radiculopathy, lumbosacral region; Chronic right-sided low back pain with right-sided sciatica Discharge Disposition: Discharge to home or self care 01/09/2025 Results Follow-Up [facility] Sleep Medicine at [place] [address] [place] [address] Iqra Jensen MD [facility] 01/09/2025 Results Follow-Up [facility] Metabolism and Lipid [address] [facility] Advanced Medicine 13th [place] [address] [place] [address] Shirley Teixeira PA Vitamin D 25 hydroxy, Vitamin B12, TSH, Additional followed-up results: 6 01/09/2025 3:10 PM CDT Lab [facility] ([facility]) [address] [place] [address] 01/09/2025 2:55 PM CDT Lab [facility]) [address] [place] [address] Uncontrolled type 2 diabetes mellitus with hyperglycemia (HCC); Obstructive sleep apnea; Iron deficiency; Restless leg syndrome 01/09/2025 11:30 AM CDT - 01/09/2025 11:59 PM CDT Hospital Encounter [facility] Breast Imaging [facility] Advanced 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); Encounter for comprehensive diabetic foot examination, type 2 diabetes mellitus (HCC) 01/06/2025 Plan of Care Documentation [facility] Rehabilitation Services at [address] [address] 01/06/2025 Documentation [facility] Services at [address] [address] Tiffanie Cantu, PT compression script 01/06/2025 Plan of Care Documentation [facility] Rehabilitation Services at [address] [address] 01/06/2025 2:00 PM CDT Therapy [facility] Services at [address] [address] Tiffanie Cantu, PT Lymphedema (Primary Dx); Decreased functional mobility and endurance 01/04/2025 12:00 PM CDT Therapy [facility] Services at [address] [address] Tiffanie Cantu, PT Lymphedema (Primary Dx); Decreased functional mobility and endurance 01/03/2025 Results Follow-Up [facility] Pulmonary at [address] [phone] Canelo Doan DO Transthoracic Echo (TTE) Complete W Doppler/CF 01/02/2025 9:30 AM CDT Office Visit [facility] Sleep Medicine at [address] [phone] Iqra Jensen MD Obstructive sleep apnea (Primary Dx); Hypersomnia; Obesity, unspecified class, unspecified obesity type, unspecified whether serious comorbidity present; Iron deficiency; Restless leg syndrome 12/30/2024 Telephone [facility] Gastroenterology at [address] [place] [phone] Ad Camacho MD 12/29/2024 Plan of Care Documentation [facility] Services at [address] [address] 12/29/2024 9:00 AM CDT Therapy [facility] Services at [address] [address] Ele Vazquez, PT Lymphedema (Primary Dx); Decreased functional mobility and endurance 12/23/2024 6:57 AM CDT - 12/23/2024 11:59 PM CDT Hospital Encounter [facility] [address] [place] [address] Hypoxia Discharge Disposition: Discharge to home or self care 12/22/2024 Telephone [facility] Gastroenterology at [facility] [address] [place] [address] [address] [place] [address] Alex Billings MD 12/21/2024 2:30 PM CDT Office Visit [facility] Primary Care at [facility] [address] [facility] [address], [place] [address] Lynn Rodriguez MD Acute right-sided low back [...] Films 12/13/2024 2:30 PM CDT Office Visit [facility] Pulmonary at [address] [place] [address] Canelo Doan DO Moderate persistent asthma without complication (Primary Dx); Class 3 severe obesity due to excess calories with serious comorbidity and body mass index (BMI) of 45.0 to 49.9 in adult; Chronic hypoxic respiratory failure (HCC); jail 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 user 11/30/2024 3:30 PM CDT Office Visit [facility] Convenient Care at [address] [address] Minnie House NP Acute non-recurrent [...] 400 each 3 024 Active blood-glucose sensor (The Skimm G7 Sensor) deviceIndications :Uncontrolled type 2 diabetes mellitus with hyperglycemia (HCC),oil heaterman (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) Use for [...] NEBULIZER EVERY 6 HOURS NEEDED FOR WHEEZING (FREEZER PERSON RECOMMENDS NOT EXCEEDING 4 VIALS/DAY) 600 mL [...] exertion Follow up pulmonary Impaired mobility 07/29/2024 oil heaterman (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 07/13/2024 oil heaterman 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 user 07/13/2024 Assessment & Plan (07/13/2024 12:22 PM PHYSICIAN'S AIDE): - Further complicates diabetes management Has immunity to COVID-19 virus 06/21/2021 Overview (06/30/2022): Pito vaccine 10/05/2020, Moderna booster and Pfizer bivalent booster Assessment & Plan (06/24/2021 3:28 PM PHYSICIAN'S AIDE): Pito vaccine 10/05/2020 and Moderna booster Jun 2021 Major depressive disorder 04/22/2021 Assessment & Plan (01/06/2024 9:09 AM CDT): Stable on current medication regimen. Assessment & Plan (01/17/2022 10:21 AM CDT): Stable on current medication regimen. Assessment & Plan (07/17/2021 2:07 PM PHYSICIAN'S AIDE): Better controlled on venlafaxine. Assessment & Plan (04/22/2021 8:25 AM CDT): Restart venlafaxine and warned of side effects and call back if any develop or if no improvement. 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 Unfortunately lab work and skin biopsy inconclusive. Discussed possible rheumatology 2nd opinion here at [facility] and patient will call back if desired. Assessment & Plan (06/15/2023 10:48 AM PHYSICIAN'S AIDE): Certainly making a case for underlying vasculitis [...] condition. Assessment & Plan (06/20/2020 9:35 AM PHYSICIAN'S AIDE): Unclear etiology but I am thinking of [...] tolerated Assessment & Plan (08/26/2024 6:10 PM PHYSICIAN'S AIDE): Body mass index is 49.1 kg/m . BMI Follow-up includes: nutrition counseling, exercise counseling, and education provided. Assessment & Plan (07/13/2024 12:20 PM PHYSICIAN'S AIDE): - Increase Mounjaro to 10 mg weekly [...] tolerated. Assessment & Plan (06/08/2023 5:23 PM PHYSICIAN'S AIDE): Patient is encouraged to lose weight with a combination of caloric reduction and increased exercise. Various strategies discussed. The long-term risks associated with continued morbid obesity discussed. Assessment & Plan (09/04/2022 2:34 PM PHYSICIAN'S AIDE): Patient is encouraged to lose weight with a combination of caloric reduction and increased exercise. Various strategies discussed. The long-term risks associated with continued morbid obesity discussed. Assessment & Plan (08/02/2022 12:16 PM PHYSICIAN'S AIDE): Patient is encouraged to lose weight with [...] discussed. Assessment & Plan (07/13/2020 8:34 AM PHYSICIAN'S AIDE): Patient is encouraged to lose weight with a combination of caloric reduction and increased exercise. Various strategies discussed. The long-term risks associated with continued morbid obesity discussed. Assessment & Plan (06/20/2020 9:35 AM PHYSICIAN'S AIDE): Patient is encouraged to lose weight with a combination of caloric reduction and increased exercise. Various strategies discussed. The long-term risks associated with continued morbid obesity discussed. Assessment & Plan (07/08/2019 8:44 AM PHYSICIAN'S AIDE): Patient is encouraged to lose weight with a combination of caloric reduction and increased exercise. Various strategies discussed. The long-term risks associated with continued morbid obesity discussed. Irregular menses 06/03/2019 Allergic rhinitis 07/05/2018 Assessment & Plan (02/23/2023 1:30 PM CDT): Nasal saline spray (Simply saline, Little Remedies, [place], Roseboom) 2 second sprays or 2 squeezes into [...] daily Assessment & Plan (07/17/2021 2:07 PM PHYSICIAN'S AIDE): Claritin montelukast. Assessment & Plan (04/22/2021 8:25 AM CDT): Currently using Claritin and montelukast. She has not been trying Flonase as her nose is being to congested. Recommended sinus rinses her using a hot warm shower. Could also try Afrin for few days. Assessment & Plan (07/08/2019 8:43 AM PHYSICIAN'S AIDE): Add montelukast to her Claritin. She struggles with nasal sprays due to chronic congestion. Assessment & Plan (07/05/2018 9:24 AM PHYSICIAN'S AIDE): Try Afrin for 3 days along with [...] mg/dL Assessment & Plan (07/13/2024 12:21 PM PHYSICIAN'S AIDE): - Last LDL 103, TG 308, TC [...] triglycerides. Assessment & Plan (09/12/2023 8:12 PM PHYSICIAN'S AIDE): Continue statin and optimize glycemic control Assessment & Plan (02/16/2023 8:14 PM CDT): Continue statin and optimize glycemic control Assessment & Plan (01/21/2023 9:50 AM CDT): Continue her atorvastatin and work on diet exercise and check lipids and LFTs before next visit. Assessment & Plan (08/02/2022 12:15 PM PHYSICIAN'S AIDE): Well controlled on current therapy and will check a lipid panel and LFTs in 6 months. Assessment & Plan (01/17/2022 10:21 AM CDT): Well controlled on current therapy and will check a lipid panel and LFTs in 6 months. Assessment & Plan (07/17/2021 2:06 PM PHYSICIAN'S AIDE): Well controlled on current therapy and will check a lipid panel and LFTs in 6 months. Assessment & Plan (06/24/2021 3:28 PM PHYSICIAN'S AIDE): Continue statin and optimize glycemic control Assessment & Plan (12/19/2020 7:53 AM CDT): Continue statin and optimize glycemic control Assessment & Plan (07/13/2020 8:34 AM PHYSICIAN'S AIDE): Well controlled on current therapy and will check a lipid panel and LFTs in 6 months. Assessment & Plan (06/08/2020 8:31 AM PHYSICIAN'S AIDE): LDL within goal. Continue statin and optimize glycemic control Assessment & Plan (07/08/2019 8:42 AM PHYSICIAN'S AIDE): Well controlled on current therapy and will check a lipid panel and LFTs in 12 months. Assessment & Plan (09/01/2018 2:22 PM PHYSICIAN'S AIDE): Continue statin, optimize glycemic control Assessment & Plan (07/05/2018 9:23 AM PHYSICIAN'S AIDE): Well controlled on current therapy and will check a lipid panel and LFTs in 6 months. Assessment & Plan (08/26/2017 4:27 PM PHYSICIAN'S AIDE): Start atorvastatin and check lipids and LFTs in 3-4 months. Call back for results. Vitamin D deficiency 07/02/2017 Assessment & Plan (07/13/2024 12:22 PM PHYSICIAN'S AIDE): - Last Vitamin D 42 (12/2023), replete [...] week Assessment & Plan (09/12/2023 8:12 PM PHYSICIAN'S AIDE): Continue long-term supplement Assessment & Plan (02/16/2023 8:14 PM CDT): Continue long-term supplement Assessment & Plan (08/02/2022 12:15 PM PHYSICIAN'S AIDE): Continue current supplementation and check level in 1 year. Assessment & Plan (07/17/2021 2:06 PM PHYSICIAN'S AIDE): Continue current supplementation and check level in 1 year. Assessment & Plan (06/24/2021 3:29 PM PHYSICIAN'S AIDE): Continue long-term supplement Assessment & Plan (12/19/2020 7:53 AM CDT): Continue long-term supplement Assessment & Plan (07/13/2020 8:33 AM PHYSICIAN'S AIDE): Continue current supplementation and check level in 1 year. Assessment & Plan (06/08/2020 8:31 AM PHYSICIAN'S AIDE): Vitamin-D level within goal, continue chronic supplement Assessment & Plan (07/08/2019 8:42 AM PHYSICIAN'S AIDE): Continue current supplementation and check level in 1 year. Assessment & Plan (06/03/2019 8:24 AM CDT): Recently ran out of supplement, so we will restart and check her level today. Also check B12 Assessment & Plan (09/01/2018 2:22 PM PHYSICIAN'S AIDE): Continue supplement Assessment & Plan (07/05/2018 9:23 AM PHYSICIAN'S AIDE): Continue current supplementation and check level in 1 year. Assessment & Plan (08/26/2017 4:26 PM PHYSICIAN'S AIDE): Continue current supplementation and check level in [...] Value Date HGBA1C 8.9 (A) 01/09/2025 Per [place] [employer], goal A1c is less 7% [...] that I am available via phone or SharedReview[employer] if they have any concerns for hypo/hyperglycemia, medication refills, etc. Assessment & Plan (10/12/2024 11:32 AM CDT): - Diabetes is complicated by hyperlipidemia, hypertension, obesity and chronic steroid use. Control is improving with most recent A1c 7.8%. Lab Results Component Value Date HGBA1C 11.7 07/13/2024 Per [place] [employer], goal A1c is less 7% [...] that I am available via phone or Shared[employer] if they have any concerns for hypo/hyperglycemia, medication refills, etc. Assessment & Plan (08/26/2024 6:10 PM PHYSICIAN'S AIDE): Assessment & Plan (07/13/2024 12:20 PM PHYSICIAN'S AIDE): - Diabetes is complicated by hyperlipidemia, hypertension, morbid obesity and chronic steroid use. Uncontrolled. Lab Results Component Value Date HGBA1C 11.7 07/13/2024 Per [place] [employer], goal A1c is less 7% [...] in prescriptions for both Dexcom G7 and Clinithink Silva 3 CGM for mcmillan checking. Also [...] Return visit 3 months to see the BASS GUITAR TEACHER/PA, 6 months to see me. Assessment & [...] Component Value Date HGBA1C 12.5 11/17/2023 Per [place] [employer], goal A1c is less 7% [...] that I am available via phone or [employer] if they have any concerns for hypo/hyperglycemia, medication refills, etc. Assessment & Plan (11/18/2023 8:23 AM CDT): - Diabetes is complicated by HTN, HLD, steroid use, hyperglycemia and obesity. Uncontrolled. Lab Results Component Value Date HGBA1C 12.5 11/17/2023 Per [place] [employer], goal A1c is less 7% without significant hypoglycemia. - Management Goal: re-start and adherence to medication regimen - Continue current medication regimen at this time. - Patient called local pharmacy to confirm that they do have prescriptions for her Semglee. She is going to pick up worker today after this visit. - Insurance does [...] etc. Assessment & Plan (09/12/2023 8:13 PM PHYSICIAN'S AIDE): Very high glucoses; multifactorial including steroid therapy, [...] daily. Assessment & Plan (06/24/2021 3:29 PM PHYSICIAN'S AIDE): Much improved but needs a little more basal insulin. Assessment & Plan (12/19/2020 7:53 AM CDT): Multiple medications, but now requires insulin. We can gradually adjust her Lantus based on her clinical response. Assessment & Plan (06/08/2020 8:32 AM PHYSICIAN'S AIDE): Glucoses somewhat better now that she is [...] motivator. Assessment & Plan (07/08/2019 8:43 AM PHYSICIAN'S AIDE): Continue increased dose of Ozempic and also continue Invokana. Importance of dietary changes increase exercise weight loss discussed. Follow-up with her sericulture teacher as they direct. Assessment & Plan (06/03/2019 8:25 AM CDT): Somewhat suboptimal, would benefit from increasing Ozempic and continuing efforts with diet and lifestyle. Needs follow-up labs Assessment & Plan (09/01/2018 2:22 PM PHYSICIAN'S AIDE): Glucoses a little high, but she has bruising with Victoza so she may benefit by changing to weekly Ozempic, which is a little stronger, as well. Jardiance is been ineffective, so we may need to provide preauthorization for Invokana Assessment & Plan (07/05/2018 9:23 AM PHYSICIAN'S AIDE): A1c above goal. We stressed importance of increased exercise, reduce calories, weight loss. Could consider switching Victoza to ozempic. Otherwise does not tolerate metformin or sulfonylureas. May need insulin soon. She is directed to follow up with her sericulture teacher more quickly than her next scheduled appointment in November. Assessment & Plan (08/26/2017 4:26 PM PHYSICIAN'S AIDE): Continue current medication regimen and follow up with her sericulture teacher as they direct. Low carb diet weight [...] mmHg Assessment & Plan (07/13/2024 12:21 PM PHYSICIAN'S AIDE): - Above goal today - Encouraged her [...] monitor. Assessment & Plan (06/08/2023 5:25 PM PHYSICIAN'S AIDE): Stop amlodipine with current issues of swelling. Pressure currently well controlled and should monitor at home Assessment & Plan (01/21/2023 9:49 AM CDT): Blood pressure well controlled on lisinopril Assessment & Plan (09/04/2022 2:34 PM PHYSICIAN'S AIDE): Blood pressure well controlled on her lisinopril. Assessment & Plan (08/02/2022 12:15 PM PHYSICIAN'S AIDE): Increase lisinopril to 20 mg daily. Monitor blood pressure at home call back if no improvement. Assessment & Plan (01/17/2022 10:21 AM CDT): Well controlled on the current regimen. Avoidance of salt, proper body weight, and routine exercise recommended. Assessment & Plan (07/17/2021 2:06 PM PHYSICIAN'S AIDE): Well controlled on the current regimen. Avoidance of salt, proper body weight, and routine exercise recommended. Assessment & Plan (04/22/2021 8:24 AM CDT): Well controlled on the current regimen. Avoidance of salt, proper body weight, and routine exercise recommended. Assessment & Plan (07/13/2020 8:34 AM PHYSICIAN'S AIDE): Well controlled on the current regimen. Avoidance of salt, proper body weight, and routine exercise recommended. Assessment & Plan (07/08/2019 8:42 AM PHYSICIAN'S AIDE): Well controlled on the current regimen. Avoidance of salt, proper body weight, and routine exercise recommended. Assessment & Plan (09/01/2018 2:21 PM PHYSICIAN'S AIDE): Blood pressure close to target, working on diet and lifestyle Assessment & Plan (07/05/2018 9:23 AM PHYSICIAN'S AIDE): Well controlled on the current regimen. Avoidance of salt, proper body weight, and routine exercise recommended. Assessment & Plan (08/26/2017 4:25 PM PHYSICIAN'S AIDE): Well controlled on the current regimen. Avoidance [...] montelukast Assessment & Plan (08/26/2024 6:08 PM PHYSICIAN'S AIDE): Recent exacerbation due to CAP followed by RSV Symptoms improved Continue present plan and medication--albuterol prn, montelukast Assessment & Plan (07/13/2020 8:36 AM PHYSICIAN'S AIDE): Doing well on her Symbicort. Okay to discontinue and use albuterol only as needed. Restart Symbicort if uses her albuterol more than 2 times a week. Obstructive sleep apnea 04/01/2012 Overview (11/12/2017): Description: CPAP Assessment & Plan (01/06/2024 9:08 AM CDT): Patient is compliant with the CPAP machine and gets symptomatic relief. Assessment & Plan (08/02/2022 12:15 PM PHYSICIAN'S AIDE): Patient is compliant with the CPAP machine and gets symptomatic relief. Assessment & Plan (07/17/2021 2:06 PM PHYSICIAN'S AIDE): Repeat sleep study confirmed obstructive sleep apnea [...] syndrome. Assessment & Plan (07/13/2020 8:34 AM PHYSICIAN'S AIDE): Patient is compliant with the CPAP machine and gets symptomatic relief. Assessment & Plan (07/08/2019 8:42 AM PHYSICIAN'S AIDE): Patient is compliant with the CPAP machine and gets symptomatic relief. Female infertility associated with anovulation 0 09/21/2011 Resolved Problems Problem Noted Date Diagnosed Date Resolved Date Decreased functional mobility and endurance 12/29/2024 02/15/2025 Uncontrolled diabetes mellit us with hyperglycemia 08/14/2024 12/21/2024 Acute hypoxic respiratory failure 08/13/2024 12/21/2024 Assessment & Plan (08/26/2024 6:09 PM PHYSICIAN'S AIDE): Recent hospitalization likely for CAP followed by [...] legs Assessment & Plan (06/15/2023 10:47 AM PHYSICIAN'S AIDE): Improved after addition of doxycycline to her Bactrim. Call back if symptoms worsen after doxycycline runs out Assessment & Plan (06/08/2023 5:25 PM PHYSICIAN'S AIDE): Seems like cellulitis slow to improve either [...] 12/21/2024 Assessment & Plan (09/04/2022 2:35 PM PHYSICIAN'S AIDE): No signs of neurological abnormality on examination [...] Continue other medications as directed by her sericulture teacher. Diet exercise discussed. Hopefully may be able to wean prednisone in the near future as well. Assessment & Plan (06/15/2023 10:48 AM PHYSICIAN'S AIDE): She knows that the steroids will exacerbate her hyperglycemia and should be in contact with her sericulture teacher for management. Assessment & Plan (06/08/2023 5:26 PM PHYSICIAN'S AIDE): Poor control of her diabetes prior to this hospitalization and even worse now on prednisone. Follow-up with her sericulture teacher for management. Diet exercise weight loss recommended. Assessment & Plan (01/21/2023 9:50 AM CDT): Blood sugars remain above goal. Hopefully the recent addition of mounjaro will help significantly. Discuss up titration of this and her mealtime insulin with her sericulture teacher. Diet exercise discussed. Check A1c and fasting blood sugar before next visit. Assessment & Plan (08/02/2022 12:16 PM PHYSICIAN'S AIDE): A1c poorly controlled. Importance of diet exercise weight loss discussed at length. Continue her Ozempic and insulin and needs to contact her sericulture teacher soon as possible for guidance on further therapy. Assessment & Plan (01/17/2022 10:22 AM CDT): Patient aware A1c grossly uncontrolled. Must work on diet exercise and weight loss. She has to get back on her insulin and should discuss this today with her sericulture teacher. Risks posed her health with poor glycemic control discussed. Assessment & Plan (07/13/2020 8:34 AM PHYSICIAN'S AIDE): A1c above goal. Importance of diet exercise weight loss discussed. Continue current medication regimen and follow-up with her sericulture teacher as they direct. Dyslipidemia 06/03/2019 07/13/2020 Healthcare [...] yearly. Colonoscopy due March 2027. Follow-up the client delivery manager for breast exam pelvic exam as they direct. Will see her back in about 6 months sooner if needed. Assessment & Plan (08/02/2022 12:17 PM PHYSICIAN'S AIDE): Flu shot each May. Tetanus booster every 10 years. Pneumovax completed. COVID booster recommended. Mammogram yearly. Colonoscopy due March 2027. Follow-up the client delivery manager for breast exam pelvic exam as they direct. Will see her back in 6 months with lab sooner if needed. Assessment & Plan (07/17/2021 2:08 PM PHYSICIAN'S AIDE): Flu shot each May. Tetanus booster every 10 years. Pneumovax completed. COVID vaccine completed. Mammogram yearly. Colonoscopy ordered and she should verify coverage before proceeding. Follow-up the client delivery manager for breast exam and pelvic exam as they direct. We will see her back in 1 year for physical and fasting lab sooner if needed. Assessment & Plan (07/13/2020 8:35 AM PHYSICIAN'S AIDE): Flu shot each May. Tetanus booster every 10 years. She has had a Pneumovax. Mammogram was abnormal back in August and she has delayed follow-up studies until now and she is urged to get her diagnostic and ultrasound studies done at her earliest convenience and she is aware of the risks posed her health with delay in proceeding. Follow-up the client delivery manager for breast exam and pelvic exam as they direct. We will see her back in 1 year for wellness visit fasting lab sooner if needed. Assessment & Plan (07/08/2019 8:43 AM PHYSICIAN'S AIDE): Flu shot each May. Tetanus booster every 10 years. Mammogram ordered. Will see her back in 1 year for physical and fasting lab sooner if needed. Assessment & Plan (07/05/2018 9:24 AM PHYSICIAN'S AIDE): Tetanus booster today. Flu shot each May. Mammogram ordered. Patient should follow-up the client delivery manager breast exam and pelvic exam. We will see her back in 1 year for wellness visit fasting lab sooner if needed. Assessment & Plan (08/26/2017 4:27 PM PHYSICIAN'S AIDE): Flu shot each May. Tetanus booster every 10 years. See her client delivery manager for breast exam mammogram and Pap smear [...] aerobics Assessment & Plan (08/26/2017 4:28 PM PHYSICIAN'S AIDE): Patient is encouraged to lose weight with [...] Unspecified 05/16/2021,2020,04/22/2021(Defer red: Patient Refused),03/19/2021(Deferred: Patient Refused),05/12/2019,05/07/2017 [employer] ([employer]) SARS-CoV-2 Vaccination 10/05/2020 Pneumococcal Conjugate Pcv20 [...] on file Legal Sex Female 11:54 PM PHYSICIAN'S AIDE Gender Identity Female 09/19/2020 8:37 AM PHYSICIAN'S AIDE Sexual Orientation Straight 09/19/2020 8: 37 AM PHYSICIAN'S AIDE Last Filed Vital Signs Vital Sign Reading [...] 04/27/2025 7:30 AM CDT Hospital Encounter [address] [address] Ad Camacho MD [address] [place] [address] [address], [place] [address] 04/27/2025 7:30 AM CDT - 04/27/2025 8:00 AM CDT Surgery [address] [address] Ad Camacho MD [address] [place] [address] [address] [place] [address] ESOPHAGOGASTRODUODENOSCOPY Scheduled Procedures Name Priority Associated Diagnoses [...] CDT) LALO, qual NEGATIVE NEGATIVE [facility] [place] Comment: LALO IFA is a first line [...] AC-0: Negative International Consensus on LALO Patterns (https://doi.org/10.1515/ktxg-0378-8984) For additional information, please refer to http://education.[employer].Play for Job/faq/IPJ536 (This link is being provided for informational/ educational purposes only.) Blood 02/15/2025 10:4 1 AM CDT 02/15/2025 10:43 AM CDT Narrative [facility] - 02/16/2025 3:55 PM CDT FASTING:YES FASTING: YES us uLcian Trinidad MD PhD LAB BLOOD ORDERABLE S Final Result [facility] [address] [address] [facility] [place] [address] * Anti-double stranded DNA abs (02/15/2025 10:41 [...] ORDERABLE S Final Result Performing Organization Address [facility] de Phone Number [facility] [address] [place] [address] * NOTE (02/15/2025 10:41 AM CDT) Note [facility] Comment: This urine was analyzed for the presence of WBC, RBC, bacteria, casts, and other formed elements. Only those elements seen were reported. 02/15/2025 10:4 1 AM CDT 02/15/2025 10:43 AM CDT Narrative [facility] - 02/16/2025 6:35 AM CDT FASTING:YES FASTING: YES Lucian Trinidad MD PhD LAB BLOOD ORDERABLE S Final Result Performing Organization Address [facility] de Phone Number [facility] [address] [place] [address] * C4 complement (02/15/2025 10:41 AM CDT) [facility] Complement component C4C 24 15 - 57 mg/dL [facility] Blood 02/15/2025 10:4 1 AM CDT 02/15/2025 10:43 AM CDT Narrative [facility] - 02/16/2025 7:26 AM CDT FASTING:YES FASTING: YES Lucian Trinidad MD PhD LAB BLOOD ORDERABLE S Final Result Performing Organization Address [facility] de Phone Number [facility] [address] [place] [address] * PR3 - proteinase 3, Ab (02/15/2025 10:41 AM CDT) Proteinase-3 ab <1.0 [facility] Comment: Value Interpretation ----- <1.0 No Antibody Detected > or = 1.0 Antibody Detected Autoantibodies to proteinase-3 (TN-3) are accepted as characteristic for granulomatosis with polyangiitis (GPA, Brent's), and are detectable in 95% of the histologically proven cases. The cytoplasmic IFA pattern, (c-ANCA), is based largely on autoantibody to TN-3 which serves as the primary antigen. These autoantibodies are present in active disease. Blood 02/15/2025 10:4 1 AM CDT 02/15/2025 10:43 AM CDT [facility] - 02/16/2025 7:07 AM CDT FASTING:YES FASTING: YES Lucian Trinidad MD PhD LAB BLOOD ORDERABLE S Final Result Team [facility] [address] [place] [address] * MPO - myeloperoxidase antibody (02/15/2025 10:41 AM CDT) MYELOPEROXIDASE ANTIBODY <1.0 [facility] [place] Comment: Value Interpretation ----- <1.0 No Antibody [...] AM CDT 02/15/2025 10:43 AM CDT Narrative [facility] - 02/16/2025 7:07 AM CDT FASTING:YES FASTING: YES us Lucian Trinidad MD PhD LAB BLOOD ORDERABLE S Final Result Performing Organization Address [facility]/ZIP Co de Phone Number PILO [facility] [address] [address] [address] * (ABNORMAL) Urinalysis reflex to microscopic (02/15/2025 10:41 AM CDT) Color, ur YELLOW YELLOW [facility] [place] Appearance, ur CLOUDY(A) CLEAR [facility] [place] Specific gravity 1.039(H) 1.001 - 1.035 [facility] pH, ur < OR = 5.0(A) 5.0 - 8.0 [facility] [place] Glucose, ur 2+(A) NEGATIVE [facility] Bilirubin, ur NEGATIVE NEGATIVE [facility] Ketones, ur TRACE(A) NEGATIVE [facility] Blood, ur 1+(A) NEGATIVE [facility] [place] Protein, ur, quant 1+(A) NEGATIVE [facility] Nitrites, ur NEGATIVE NEGATIVE [facility] Leukocyte esterase, ur NEGATIVE NEGATIVE [facility] WBC, ur NONE SEEN < OR = 5 /HPF [facility] [place] RBC, ur NONE SEEN < OR = 2 /HPF [facility] Epithelial cells, squamous, ur 20-40(A) < OR = 5 /HPF [facility] [place] Bacteria, ur, quant FEW(A) NONE SEEN /HPF [facility] [place] Hyaline cast NONE SEEN NONE SEEN /LPF [facility] [place] Yeast, ur MANY(A) NONE SEEN /HPF [facility] [place] Urine 02/15/2025 10:4 1 AM CDT 02/15/2025 10:43 AM CDT Narrative [facility] - 02/16/2025 6:35 AM CDT FASTING:YES FASTING: YES us Lucian Trinidad MD PhD LAB URINE ORDERABLE S Final Result Performing Organization Address [facility]/ZIP Co de Phone Number PILO [facility] [address] [address] [address] * (ABNORMAL) CBC with auto differential (02/15/2025 10:41 AM CDT) Pathologist [facility] WBC 17.6(H) 3.8 - 10.8 Thousand/ uL [...] ORDERABLE S Final Result Performing Organization Address [facility] de Phone Number [facility] [address] [place] [address] * Cyclic citrul peptide antibody, IgG (02/15/2025 10:41 AM CDT) Pathologist [facility] Cyclic citrullinated peptide ab, IgG <16 UNITS [facility] Comment: Reference Range Negative: <20 Weak Positive: 20-39 Moderate Positive: 40-59 Strong Positive: >59 Blood 02/15/2025 10:4 1 AM CDT 02/15/2025 10:43 AM CDT Narrative [facility] - 02/16/2025 4:08 PM CDT FASTING:YES FASTING: YES us Lucian Trinidad MD PhD LAB BLOOD ORDERABLE S Final Result Performing Organization Address [place] [facility] Phone Number [facility] [address] [place] [address] * (ABNORMAL) Protein / creatinine ratio, urine, random (02/15/2025 10:41 AM CDT) Pathologist [facility] Creatinine, ur 209 20 - 275 [...] ORDERABLE S Final Result Performing Organization Address [facility] de Phone Number [facility] [address] [place] [address] * Erythrocyte sedimentation rate (02/15/2025 10:41 AM CDT) Erythrocyte sedimentation rate 6 < OR = 20 mm/h [facility] Blood 02/15/2025 10:4 1 AM CDT 02/15/2025 10:43 AM CDT Narrative [facility] - 02/16/2025 7:26 AM CDT FASTING:YES FASTING: YES us Lucian Trinidad MD PhD LAB BLOOD ORDERABLE S Final Result [facility] [address] [place] [address] * Rheumatoid factor (02/15/2025 10:41 AM CDT) Rheumatoid factor, quant <10 <14 IU/mL [facility] Blood 02/15/2025 10:4 1 AM CDT 02/15/2025 10:43 AM CDT Narrative [facility] - 02/16/2025 6:07 AM CDT FASTING:YES FASTING: YES us Lucian Trinidad MD PhD LAB BLOOD ORDERABLE S Final Result Performing Organization Address City/[facility]/ZIP Co de Phone Number [facility] [address] [place] [address] * C3 complement (02/15/2025 10:41 AM CDT) Complement component C3C 188 83 - 193 mg/dL [facility] Blood 02/15/2025 10:4 1 AM CDT 02/15/2025 10:43 AM CDT Narrative [facility] - 02/16/2025 7:26 AM CDT FASTING:YES FASTING: YES Lucian Trinidad MD PhD LAB BLOOD ORDERABLE S Final Result Performing Organization Address City/[facility]/ZIP Co de Phone Number [facility] [address] [place] [address] * CRP (cardiac risk) (02/15/2025 10:41 AM [...] for Disease Control and Prevention and the [place] [employer]. Circulation 2003; 107(3): 499-511. Blood 02/15/2025 10:4 1 AM CDT 02/15/2025 10:43 AM CDT Narrative [facility] - 02/16/2025 6:07 AM CDT FASTING:YES FASTING: YES us Lucian Trinidad MD PhD LAB BLOOD ORDERABLE S Final Result [facility] [address] [facility] [place] [address] * Creatine kinase (CK), total (02/15/2025 10:41 AM CDT) Pathologist [facility] CK 82 20 - 239 U/L [facility] Blood 02/15/2025 10:4 1 AM CDT 02/15/2025 10:43 AM CDT Narrative [facility] - 02/16/2025 5:36 AM CDT FASTING:YES FASTING: YES us Lucian Trinidad MD PhD LAB BLOOD ORDERABLE S Final Result [facility] [address] [address] [address] * (ABNORMAL) Comprehensive metabolic panel (02/15/2025 10:41 [...] ORDERABLE S Final Result [facility] [address] [place] [address] * Imaging Lumbar/Caudal Epidural Steroid INJ ([address]) (02/14/2025 1:38 PM CDT) Narrative [facility] - 02/14/2025 1:38 PM CDT The images from this study are not interpreted by Radiology. Please refer to the physician's procedure / OR operative note. Amada Baldwin BASS GUITAR TEACHER IMG PAIN MGMT PROCEDURE S Final Result Performing Organization Address [facility]/ZIP Co de Phone Number [facility] * MRI [...] by: Kan Desai M.D. Sumit Yu MD [facility] XR PROCEDURES Final Result * XR Knee [...] Kan Desai M.D. us Sumit Yu MD [facility] XR PROCEDURES Final Result * XR Chest [...] (01/27/2025 2:03 PM CDT) Blood Narrative [facility] - 01/27/2025 2:03 PM CDT Blood draw complete us Lucian Trinidad MD PhD LAB BLOOD ORDERABLE S Final Result [facility] [place] [address] * XR Hand Right 3 or More [...] Antibodies against the following antigens: Ashly-1 Ab, GRAVEL ROOFER Ab, Scl-70 Ab, Bradshaw Ab, SS-A/Ro Ab, and SS- B/La Ab. Further testing for dsDNA, Centromere, or Ribosomal P antibodies is suggested in patient with a positive screen and negative specific antibodies. Current interpretive data was last revised on 2023. Blood 01/24/2025 9:41 AM CDT 01/24/2025 10:43 AM CDT Lucian Trinidad MD PhD LAB BLOOD ORDERABLE S Final Result Performing Organization Address [facility] Phone Number [facility] [place] [address] * Anti-Neutrophilic Cytoplasmic Antibody (ANCA) with Reflex to MPO and PR3 Abs (01/24/2025 9:41 AM CDT) ANCA Negative Blood 01/24/2025 9:41 AM CDT 01/24/2025 10:43 AM CDT Lucian Trinidad MD PhD LAB BLOOD ORDERABLE S Final Result Performing Organization Address [facility] Co de Phone Number [facility] [place] [address] * Neuromuscular Testing Blood (01/24/2025 12:00 AM CDT) Blood (Serum) 01/24/2025 01/25/2025 Narrative [facility] - 02/06/2025 4:56 PM CDT Please click on the PDF link to view the report containing this result Lucian Trinidad MD PhD LAB PATHOLOGY ORDER DAVI Final Result [facility] Room [address] [place] [address] * eGFR (01/09/2025 12:30 PM CDT) eGFR [...] ORDERABLES Flora l Result [facility] [place] [address] * (ABNORMAL) Differential, auto (01/09/2025 12:30 PM CDT) Neutrophil abs 10.98(H) 1.50 - 6.50 K/cumm Imm gran abs 0.13(H) 0.00 - 0.10 K/cumm [facility] Lymphocyte abs 1.66 0.80 - 3.30 K/cumm [facility] Monocyte abs 1.29(H) 0.20 - 0.80 K/cumm [facility] Eosinophil abs 0.05 0.00 - 0.50 K/cumm [facility] Basophil abs 0.06 0.00 - 0.10 K/cumm [facility] Neutrophil pct 77.5 % [facility] Comment: Interpretive Data Percent cell count reference ranges are not reported, since discordance with absolute values may lead to misinterpretation of CBC data. Current Interpretive Data was last revised on 2017. Imm gran pct 0.9 % [facility] Comment: Interpretive Data Percent cell count reference ranges are not reported, since discordance with absolute values may lead to misinterpretation of CBC data. Current Interpretive Data was last revised on 2017. Lymphocyte pct 11.7 % [facility] Comment: Interpretive Data Percent cell count reference ranges are not reported, since discordance with absolute values may lead to misinterpretation of CBC data. Current Interpretive Data was last revised on 2017. Monocyte pct 9.1 % [facility] Comment: Interpretive Data Percent cell count reference ranges are not reported, since discordance with absolute values may lead to misinterpretation of CBC data. Current Interpretive Data was last revised on 2017. Eosinophil pct 0.4 % [facility] Comment: Interpretive Data Percent cell count reference ranges are not reported, since discordance with absolute values may lead to misinterpretation of CBC data. Current Interpretive Data was last revised on 2017. Basophil pct 0.4 % [facility] Comment: Interpretive Data Percent cell count reference ranges are not reported, since discordance with absolute values may lead to misinterpretation of CBC data. Current Interpretive Data was last revised on 2017. Blood 01/09/2025 12:3 0 PM CDT 01/09/2025 1:18 PM CDT us Shirley CHUN LAB BLOOD ORDERABLES Flora dowd Result [facility] [place] [address] * (ABNORMAL) CBC with auto differential (01/09/2025 12:30 PM CDT) [facility] WBC 14.17(H) 3.80 - 9.90 K/cumm Hgb 12.2 11.9 - 15.5 g/dL [facility] Hct 38.2 35.6 - 45.5 % [facility] Plt 417(H) 150 - 400 K/cumm [facility] MPV 10.2 9.1 - 12.3 fL [facility] RBC 4.21 3.90 - 5.20 M/cumm [facility] MCV 90.7 81.3 - 96.4 fL [facility] MCH 29.0 27.1 - 33.3 pg [facility] MCHC 31.9(L) 32.3 - 35.7 g/dL [facility] RDW CV 16.4(H) 11.1 - 14.9 % [facility] RDW SD 54.8(H) 35.7 - 48.1 fL [facility] NRBC abs 0.00 0.00 - 0.01 K/cumm [facility] Blood 01/09/2025 12:3 0 PM CDT 01/09/2025 1:18 PM CDT us Shirley CHUN LAB BLOOD ORDERABLES Flora dowd Result [facility] Department [place] [address] * Albumin Creatinine Ratio, Urine (01/09/2025 12:30 PM CDT) [facility] Albumin Ur 37.8 mg/L Comment: Interpretive Data No reference range established. Current interpretive data was last revised 2018. Creatinine Ur 353.8 mg/dL [facility] Comment: Interpretive Data No reference range established. Current interpretive data was last revised 2018. Albumin Creatinine Ratio, Ur 11 1 - 29 mg/g [facility] Urine 01/09/2025 12:3 0 PM CDT 01/09/2025 1:18 PM CDT us Shirley CHUN LAB URINE ORDERABLES Flora l Result Performing Organization Address City/[facility] Co de Phone Number [facility] [place] [address] * Vitamin D 25 hydroxy (01/09/2025 12:30 PM CDT) Vitamin D 25-OH 38 30 - 80 ng/mL Blood 01/09/2025 12:3 0 PM CDT 01/09/2025 1:18 PM CDT Shirley CHUN LAB BLOOD ORDERABLES Flora l Result Performing Organization Address [facility] de Phone Number [facility] [place] [place] [address] * TSH (01/09/2025 12:30 PM CDT) Thyroid Stimulating Hormone 1.92 0.30 - 4.20 mcIUnit/mL Blood 01/09/2025 12:3 0 PM CDT 01/09/2025 1:18 PM CDT Result [facility] Shirley CHUN LAB BLOOD ORDERABLES Flora l Result Performing Organization Address [facility] Co de Phone Number [facility] [place] [address] * Ferritin (01/09/2025 12:30 PM CDT) Ferritin 42 13 - 150 ng/mL Blood 01/09/2025 12:3 0 PM CDT 01/09/2025 1:18 PM CDT Iqra Jensen MD LAB BLOOD ORDERABLES Final Resul t Performing Organization Address City/[facility] Co de Phone Number [facility] [place] [place] [address] * Vitamin B12 (01/09/2025 12:30 PM CDT) Vitamin B12 415 230 - 1,250 pg/mL Blood 01/09/2025 12:3 0 PM CDT 01/09/2025 1:18 PM CDT us Shirley CHUN LAB BLOOD ORDERABLES Flora l Result [facility] [place] [address] * (ABNORMAL) Lipid panel (01/09/2025 12:30 PM [...] revised on 2018. Triglycerides 334(H) <=149 mg/dL [facility] Comment: Interpretive Data Ages < or [...] revised on 2018. HDL 75 >=40 mg/dL [facility] Comment: Interpretive Data Ages < or [...] on 2018. LDL, calculated 127 <=129 mg/dL [facility] Comment: Interpretive Data Ages < or [...] revised on 2024. Non-HDL Cholesterol 185 mg/dL [facility] Comment: Interpretive Data Ages < or [...] last revised on 2018. Chol/HDL ratio 3 [facility] Blood 01/09/2025 12:3 0 PM CDT 01/09/2025 1:18 PM CDT Shirley CHUN LAB BLOOD ORDERABLES Flora dowd Result [facility] [place] [address] * (ABNORMAL) Comprehensive metabolic panel (01/09/2025 12:30 PM CDT) [facility] Sodium 139 135 - 145 mmol/L Potassium, pl 4.4 3.3 - 4.9 mmol/L [facility] Chloride 99 97 - 110 mmol/L [facility] CO2 27 22 - 32 mmol/L [facility] Anion gap 13 2 - 15 mmol/L [facility] BUN 22 6 - 25 mg/dL [facility] Creatinine 0.74 0.60 - 1.10 mg/dL [facility] Glucose 314(H) 70 - 199 mg/dL [facility] Comment: Interpretive Data Fasting glucose >/= 126 [...] Calcium 9.2 8.5 - 10.3 mg/dL [facility] Bilirubin, total 0.3 0.1 - 1.2 mg/dL [facility] Protein, pl 6.7 6.5 - 8.5 g/dL [facility] Albumin 4.0 3.5 - 5.0 g/dL [facility] Alk phos 54 40 - 130 Units/L [facility] ALT 69(H) 7 - 45 Units/L [facility] AST 25 10 - 45 Units/L [facility] Blood 01/09/2025 12:3 0 PM CDT 01/09/2025 1:18 PM CDT Shirley CHUN LAB BLOOD ORDERABLES Flora l Result SALMA HERCULESH [facility] [place] [address] * Screening Mammogram Bilateral W Vincenzo (01/09/2025 [...] AM CDT Narrative 12/23/2024 9:46 AM CDT [address] [place] [address] Echocardiogram Report Patient Name: WALT HUITRON : 1975 Study Date: 12/23/2024 7:09:04 AM Gender: F Tech: BASS GUITAR TEACHER Location: Echo Lab 1 Ref Provider: CANELO [...] Procedure Note German Weathers MD - 12/23/[address] [address] Echocardiogram Report Patient Name: WALT HUITRON : 1975 Study Date: 12/23/2024 7:09:04 AM Gender: F Tech: BASS GUITAR TEACHER Location: Echo Lab 1 Ref Provider: CANELO [...] Miscellaneous IMG CT PROCEDURES Flora l Result [facility] * Diabetic Eye Exam (11/10/2022) us Generic External Data Provider [facility] MAINTENANC E Final Result * COLONOSCOPY (04/02/2022 9:28 AM CDT) Anatomical Region Laterality Modality Other Narrative Procedure Note Ad Camacho MD - 04/02/2022 9:28 AM CDT [facility] Patient Name: Walt Huitron Procedure Date: 04/02/2022 9:28 AM Date of : 1975 Admit Type: Outpatient Age: 46 Gender: Female Attending MD: Ad Camacho M.D. Room: [facility] ENDOSCOPY ROOM 2 Note Status: Finalized [...] scope was passed under direct vision. TheColonoscope [id number] was introduced through the anus and advanced [...] 9:28 AM Procedure Code(s): --- Professional --- 04828, Colonoscopy, flexible; with biopsy, single or multiple Diagnosis Code(s): --- Professional --- Z12.11, Encounter for screening for malignant neoplasm of colon D12.3, Benign neoplasm of transverse colon (hepatic flexure orsplenic flexure) D12.4, Benign neoplasm of descending colon D12.8, Benign neoplasm of rectum CPT copyright 2020 [employer]. All rights reserved. The codes documented in this report are preliminary and upon medical billing coder reviewmay be revised to meet current compliance requirements. Recognized by the [employer] for promoting quality in endoscopy Ad Camacho MD ENDOSCOPY PROCEDURES Final Resul t * Diabetic Foot Exam (03/26/2021) Impressions Art Staley MA - 03/26/2021 In care everywhere Historical Provider HEALTH MAINTENANCE Final Result from Last 3 Months or Most Recently Relevant to Health Maintenance Insurance Prote[employer]-dor [facility] [place] [address] [facility] Advance Directives For more information, please contact: [phone] * Full Code (Latest Code Status on File) Date Activated Date Inactivated Comments 04/02/2022 9:27 AM 04/02/2022 4:47 PM * Full Code Date Activated Date Inactivated Comments 04/02/2022 9:27 AM 04/02/2022 9:27 AM Care Teams Display Fabricator Relationship Specialty [place] [id number] [address] PCP - General Internal Medicine 04/06/24 Ann Serrano MD Referring Physician Endocrinology Diabetes & Metabolism 06/08/20
--- OUTSIDE RECORDS SUMMARY | 2025-02-17 04:33 | XMS_ITS | Encounter Summary ---
Author Organization [facility] Address [address] [place] [address] Care Team Providers Care Marketing Analyst Name Role Phone Tiffany Cox MD Primary Care Provider Unavailable Kishor Saleh MD Primary Care Provider Encounter Details Date Type Department Care Team (Late st Contact Info) Description 07/03/2023 Lab Requisition [facility] - DermPath Lab [address] [place] [address] [place] [address] [address] Social History Tobacco Use Types Packs/Day Years Used Date Smoking Tobacco: Never Assessed Comments Unknown Sex and Gender Information Value Date Recorded Sex Assigned at Not on file Legal Sex Female 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 Gender Identity Not on file Sexual Orientation Not on file documented as of this encounter Plan of Treatment Not on file documented as of this encounter Procedures Procedure Name Priority Date/Time Associated Diagnosis Comments DERMATOPATHOLOGY Routine 07/01/2023 3:33 AM PIPE 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 SKIN, right inferior knee: STASIS DERMATITIS (L30.8) DERMAL FIBROSIS (L90.5) (see microscopic description) 3 3:45 PM [facility] DERMATOPATHOLOGY LABORATORY at [address] PIPE AND BOILER [employer]OV[employer] SUPERVISOR Clinical History Rash; R/O Leukocytoclastic Vasculitis, Livedo Reticularis 3 3:45 PM [facility] DERMATOPATHOLOGY [facility]ORATORY Gross Description Specimen A: Received is one formalin filled container labeled with the patient's name and designated right inferior knee. The specimen consists of a punch biopsy measuring 6x5x6 mm. Jar 0. 3:45 PM [facility] DERMATOPATHOLOGY [facility]ORATORY Microscopic Description Specimen A. [...] sections were obtained and reviewed. 3:45 PM [facility] DERMATOPATHOLOGY LABORATORY Disclaimer An external and internal positive and negative controls are appropriate for the histochemical, immunohistochemical and immunofluorescence stain(s) in this case (if any), except where stated explicitly. The performance characteristics of the stain(s) cited in this report were developed and its performance characteristic determined by the Dermatopathology Laboratory at [facility], directed by Dr. Arnol Perea. These tests need not be, and therefore are not, approved by the [place] Food and Drug Administration. The tests are used for clinical purposes. Billing Codes Specimen Charges Stain Charges 46880 1 72588 1 3 3:45 PM [facility] DERMATOPATHOLOGY [facility]ORATORY Embedded Images 3 3:45 PM [facility] DERMATOPATHOLOGY [facility]ORATORY Pathology/Cytolo gy TISSUE SPECIMEN FROM SKIN / Unknown 07/01/2023 3:33 AM PIPE [employer] BOIL[employer]OVERS SUPERVISOR 07/03/2023 12:12 PM PIPE [employer] BOILER COVERS SUPERVISOR Kendrick Christopher MD LAB - PATHOLOGY/CYTOLOGY O RDERABLES Final Result DERMATOPATHOLOGY LABORATORY [facility] - Department of Dermatology [facility] Medicine [address] [place] [address], [address] [phone] documented in this encounter Visit Diagnoses Not on filedocumented in this encounter Additional Health Concerns Infection Onset Date Last Indicated Resolved Time COVID-19 Under Investigation 08/13/2024 08/13/2024 08/13/2024 11:30 PM PIPE AND BOILER COVERS SUPERVISOR documented as of this encounter Care Teams Marketing Analyst Relationship Specialty Start Date End Date Tiffany Cox MD PCP - General Internal Medicine 05/16/13 07/30/23 Kishor Saleh MD [address] [place] [address] DR S[address] [place] [address] PCP - General Internal Medicine 07/31/23 documented as of this encounter
[2025-02-17 04:46] LABS: INR 0.9; Prothrombin Time 12.0 Seconds (11.1-14.7)
[2025-02-17 04:47] LABS: Alanine Aminotransferase 74 U/L (6-35); Albumin Level 3.6 g/dL (3.5-5.1); Alkaline Phosphatase 62 U/L (38-126); Anion Gap 8 mmol/L (4-12); Aspartate Amino Transferase 33 U/L (14-36); Bilirubin,Total 0.4 mg/dL (0.2-1.3); Blood Urea Nitrogen 20 mg/dL (7-17); Calcium 9.0 mg/dL (8.4-10.2); Carbon Dioxide 28 mmol/L (22-30); Chloride 100 mmol/L (98-107); Estimated CRCL calculation 135 ml/min; Estimated Glomerular Filt Rate > 60; Glucose 284 mg/dL (65-110); Partial Thromboplastin Time 25.9 Seconds (22.3-36.8); Potassium 4.0 mmol/L (3.4-5.0); Sodium 136 mmol/L (137-145); Total Protein 5.9 g/dL (6.3-8.2)
[2025-02-17 04:49] LABS: Hematocrit 35.5 % (37.0-47.0); Hemoglobin 11.2 g/dL (12.0-15.0); Immature Granulocyte Percent A 1.4 % (0-0.5); Lymphocytes Absolute Auto 2.94 K/mm3 (0.9-3.2); Mean Corpuscular HGB Conc 31.5 g/dl (32-36); Mean Corpuscular Hemoglobin 29.8 pg (26-34); Mean Corpuscular Volume 94.4 fl (80-100); Nucleated Red Blood Cells Absolute Auto 0.000 K/mm3 (0.0-0.012); Nucleated Red Blood Cells Perc 0.0 % (0.0-0.2); Platelet Count Result 333 k/mm3 (150-375); Red Blood Count 3.76 M/mm3 (4.2-5.4); White Blood Count 11.4 K/mm3 (4.5-10.0)
== END 2025-02-17 06:22 | disposition home or self-care (01) ==
PROVIDERS: Emergency Provider Student in an Organized Health Care Education/Training Program
DX: G97.1 Other reaction to spinal and lumbar puncture (principal); I10 Essential (primary) hypertension; E11.42 Type 2 diabetes mellitus with diabetic polyneuropathy; E66.01 Morbid (severe) obesity due to excess calories; Z68.43 Body mass index [BMI] 50.0-59.9, adult; E78.00 Pure hypercholesterolemia, unspecified; D84.9 Immunodeficiency, unspecified; G47.33 Obstructive sleep apnea (adult) (pediatric); F32.A Depression, unspecified; Z79.4 Long term (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; Z79.899 Other long term (current) drug therapy; Z79.85 Long-term (current) use of injectable non-insulin antidiabetic drugs; Y84.4 Aspiration of fluid as the cause of abnormal reaction of the patient, or of later complication, without mention of misadventure at the time of the procedure
CPT/HCPCS: 36415; 80053; 85025; 85610; 85730; 96361; 96374; 96375; 99284; A9270; J0780; J1100; J1200; J7030

== ENCOUNTER 2025-02-27 10:15 | Inpatient (IN) | payer OTHER, SELFPAY ==
--- NOTE | ~2025-02-27 | US_ITS ---
EXAMINATION: US venous doppler LE RT DATE: 02/28/2025 09:27 INDICATION: Asymmetric right lower limb pain, swelling and erythema. TECHNIQUE: Grayscale ultrasound images without and with compression and Doppler ultrasound images of the right lower extremity veins were obtained. COMPARISON: None. FINDINGS: The visualized portions of right common femoral vein, profunda (deep) femoral vein, femoral vein, pop liteal vein, peroneal trunk, posterior tibial veins, peroneal veins, gastrocnemius vein and greater s aphenous vein outflow are patent. IMPRESSION: 1. No deep venous thrombosis in the right lower limb. Reviewed, dictated and finalized at location A.
--- NOTE | ~2025-02-27 | XR_ITS ---
EXAMINATION: XR chest 1V portable Exam Date/Time: 02/27/2025 13:10 CDT HISTORY: edema Comparison: 10/07/2024; sniff test 09/23/2024. RESULT: Lines, tubes, and devices: None. Lungs and pleura: Persistent right hemidiaphragm elevation. Right basilar streaky scar/atelectasis. Lungs otherwise clear. Cardiomediastinal silhouette: Stable. Other: No acute osseous or upper abdominal finding. IMPRESSION: No acute cardiopulmonary process. Chronic right hemidiaphragm elevation. Reviewed, dictated and finalized at location K.
[2025-02-27 10:22] VITALS: BP 192/86; PULSE 103; RESP 20; TEMP 36.1; O2SAT 97
--- NOTE | 2025-02-27 10:39 | PC.NURSE ---
Pt back from Xray and CT. SPO2 at 79% on 2lo2. increased to 4lo2 with pulse ox staying around 79%. Pulse ox moved to ear. Spo2 at 87%. Dr Burns notified.
--- OUTSIDE RECORDS SUMMARY | 2025-02-27 10:44 | XMS_ITS | Clinical Summary ---
Author Organization [facility] Address [address] [place] [address] Phone Care Team Providers Care Concrete Journeyman Name Role Phone Masoud Hayes MD Primary Care Provider [phone] Allergies Active Allergy Reactions Criticality Noted Date [...] (10 mg) by mouth daily. 30 Tablet 3 2:47 PM UTILITY AIDE 08/13/19 23 Active amLODIPine (NORVASC) 2.5 mg tablet Take 1 Tablet (2.5 mg) by mouth daily in the morning. 90 Tablet 3 5:55 PM CDT 05/29/20 23 Active cyclobenzaprine (FLEXERIL) 5 mg Tablet TAKE 1-2 TABLETS BY MOUTH NIGHTLY TO REDUCE MUSCLE CRAMPS 60 Tablet 3 3 3:38 PM UTILITY AIDE 06/23/20 23 Active hydroxychloroqu ine (PLAQUENIL) 200 mg tablet TAKE 2 TABLETS BY MOUTH ONCE DAILY 60 Tablet 3 3 3:38 PM UTILITY AIDE 06/23/20 23 Active mycophenolate mofetil (CELLCEPT) 500 mg tablet TAKE 3 TABLETS BY MOUTH TWICE DAILY 180 Tablet 4 3 3:38 PM UTILITY AIDE 06/23/20 23 Active insulin glargine (LANTUS) 100 unit/mL pen syringe Use what insurance will cover either lantus, basaglar or semglee: 40 units AM and 40 units before dinnertime; MDD is 100 units. 30 mL 3 4 11:05 AM CDT 11/18/19 24 Active traMADoL (ULTRAM) 50 mg tablet Take 1 tablet (50 mg total) by mouth every 8 (eight) hours as needed for pain 30 Tablet 4 12:19 PM UTILITY AIDE 04/27/20 24 Active methylPREDNISol one (Medrol, Marvel,) 4 mg Tablets, Dose Pack Take by oral route as directed per package instructions on package for 6 days. 21 Tablet 4 5:14 PM CDT 04/29/20 24 Active venlafaxine [...] 23 Active fluticasone propionate (FLONASE) 50 mcg/spray [place], Suspension nasal inhaler Administer 2 Sprays in each nostril 1 time daily as needed. 02/24/20 23 Active folic acid (FOLVITE) 1 mg tablet 05/03/20 24 Active gabapentin (NEURONTIN) 300 mg capsule 05/03/20 24 Active glucagon (BAQSIMI) 3 mg/spray [place], Non-Aerosol Administer 1 [place] in each nostril. 11/17/19 24 Active insulin glargine-yfgn 100 unit/mL pen syringe Inject 20 AM and 30 units PM daily; MDD is 70 units. 02/17/20 23 Active Lyletitia Flood U-100 Insulin 100 unit/mL Insulin Pen Inject 15 units before meals plus sliding scale 1 unit for every 25 points >150 ; MDD is 55 units. 02/17/20 23 Active methotrexate (RHEUMATREX) 2.5 mg Tablet 05/03/20 24 Active montelukast (SINGULAIR) 10 mg tablet Take 1 Tablet by mouth late in the day. 04/28/20 23 Active pantoprazole (PROTONIX) 40 mg Tablet, Delayed Release (E.C.) 04/19/20 24 Active medroxyPROGESTE Enoch (Provera) 10 mg tablet Take 1 Tablet (10 mg) by mouth from the 1st to the 10th of the month. 30 Tablet 2 4 1:28 PM CDT 05/17/20 24 Active predniSONE (DELTASONE) 10 mg tablet Take 4 Tablets (40 mg) by mouth daily. 120 Tablet 3 5 3:51 PM UTILITY AIDE 06/17/20 24 Active tirzepatide (Mounjaro) 10 mg/0.5 mL Pen Injector Inject 10 mg under the skin every 7 days 2 mL 3 5 4:41 PM UTILITY AIDE 07/13/20 24 Active isosorbide dinitrate (ISORDIL) 5 mg tablet Take 1 Tablet (5 mg) by mouth 3 times daily. 90 Tablet 5 4:41 PM CDT 10/09/19 25 Active tirzepatide (Mounjaro) 12.5 mg/0.5 mL Pen Injector Inject 0.5 mL (12.5 mg total) under the skin every 7 days 2 mL 3 5 10:04 AM CDT 10/13/19 25 Active budesonide-form oteroL (SYMBICORT) 160-4.5 mcg/actuation HFA Aerosol Inhaler Inhale 2 puffs by mouth 2 (two) times a day. Rinse mouth with water after use. Do not swallow. 10.2 Gram 11 5 2:13 PM CDT 11/02/19 25 Active inhalational spacing device (EasiVent Holding Chamber) Spacer USE WITH INHALER. 1 Each 5 2:13 PM CDT 11/02/19 25 Active sulfamethoxazol e-trimethoprim (BACTRIM DS) 800-160 mg tablet Take 1 tablet (160 mg of trimethoprim total) by mouth 3 (three) times a week 12 Tablet 1 5 2:13 PM CDT 11/02/19 25 Active traMADol (ULTRAM) 50 mg tablet Take 1 tablet (50 mg total) by mouth every 8 (eight) hours as needed for pain. 30 Tablet 5 12:24 PM CDT 11/18/19 25 Active lidocaine (LIDODERM) 5 % Adhesive Patch, Medicated Apply 1 patch topically daily; leave on most painful area for up to 12 hrs 30 Patch 5 12:37 PM CDT 12/09/19 25 Active metoprolol tartrate (LOPRESSOR) 25 mg tablet Take 0.5 Tablets (12.5 mg) by mouth 2 times daily. 30 Tablet 5 3:18 PM CDT 12/18/19 25 Active dicyclomine (BENTYL) 20 mg tablet Take 1 Tablet (20 mg) by mouth 3 times daily as needed for abdominal pain. 30 Tablet 5 4:02 PM CDT 12/20/19 25 Active famotidine (PEPCID) 20 mg tablet Take 1 Tablet (20 mg) by mouth daily. 30 Tablet 5 4:02 PM CDT 12/20/19 25 Active ondansetron (ZOFRAN ODT) 4 mg Tablet, Rapid Dissolve Dissolve 1 Tablet (4 mg) by mouth every 8 hours as needed for nausea and vomiting. 14 Tablet 5 4:02 PM CDT 12/20/19 25 Active cyclobenzaprine (FLEXERIL) 10 mg tablet 07/11/20 24 Active albuterol sulfate HFA 90 mcg/actuation aerosol inhaler Take 2 Puffs by inhalation. 09/26/19 25 2025 Active blood sugar diagnostic Strip Use to check blood sugar as directed up to 4 times dialy. 08/09/19 25 Active Insulin Florence, Disposable, 32 gauge x 5/32 Needle Use to inject insulin up as directed to 5 times daily. 07/13/20 24 Active lancets 33 gauge Use to check blood sugar as directed up to 4 times daily. 07/13/20 24 Active Blood-Glucose Sensor (Quippi G7 Sensor) Device Use for continuous glucose monitor. Change sensor every 10 days. 07/13/20 24 Active methylPREDNISol one (Medrol, Marvel,) 4 mg Tablets, Dose Pack TAKE DIRECTED ON PACKAGE. 21 Tablet 5 2:23 PM CDT 12/30/19 25 Active tirzepatide (Mounjaro) 15 mg/0.5 mL Pen Injector Inject 0.5 mL (15 mg total) under the skin every 7 days 6 mL 3 01/10/20 25 Active buprenorphine HCL (Belbuca) 150 mcg Film Apply 1 each (150 mcg total) to cheek 2 (two) times a day 60 Each 01/12/20 25 Active zolpidem (AMBIEN) 10 mg tablet Take 1 Tablet (10 mg) by mouth nightly as needed for sleep study. 1 Tablet 5 1:13 PM CDT 02/10/20 25 Active ketorolac tromethamine (TORADOL) 10 mg tablet Take 1 Tablet (10 mg) by mouth every 8 hours as needed for pain for 3 days. MAXIMUM TOTAL DURATION OF 5 DAYS. 10 Tablet 5 5:26 PM CDT 02/18/20 25 Active prochlorperazin e maleate (COMPAZINE) 10 mg tablet Take 0.5 Tablets (5 mg) by mouth every 8 hours as needed FOR HEADACHE. 5 Tablet 5 5:26 PM CDT 02/18/20 25 Active venlafaxine (EFFEXOR XR) 150 mg Extended Release 24 hour capsule Take 1 capsule (150 mg total) by mouth daily 100 Capsule 1 5 12:33 PM CDT 02/21/20 25 Active venlafaxine (EFFEXOR XR) 150 mg Extended Release 24 hour capsule Take 1 capsule (150 mg total) by mouth daily 30 Capsule 4 12:19 PM UTILITY AIDE 07/10/20 24 2024 Discontinued Active Problems Patient Care Coordination No te Formatting of this note migh t be different from the original. Reading Teacher: Dr. 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 See individual assays for performing site location. CLINICAL INFORMATION [facility] [place] Comment:None given LAST MENSTRUAL PERIOD [facility] [place] Comment:10/02/2023 PREV PAP: [facility] [place] Comment:NONE GIVEN PREV BX: [facility] [place] Comment:NONE GIVEN SOURCE [facility] [place] Comment:Endocervix ADEQUACY: [facility] [place] Comment: Satisfactory for evaluation. Endocervical/transformation zone component absent. PAP INTERP [facility] [place] Comment: Cytology Results: Negative for intraepithelial lesion or malignancy. COMMENT (PAP TEST) [facility] [place] Comment: This Pap test has been evaluated with computer assisted technology. DIRECTOR OF LITIGATION: Ni Ramirez Comment: MEF, CT(ASCP) CT screening location: [place] [address] [place] [address] EXPLANATORY NOTE Que Roberto Ramirez Comment: EXPLANATORY NOTE: The Pap is [...] information. HPV E6/E7 Not Detected Not Detected [facility] [place] Comment: Methodology: Ordnance Artificer-Mediated Amplification This assay detects E6/E7 viral messenger RNA (mRNA) from 14 high-risk HPV types (16,18,31,33,35,39,45,51,52,56,58,59,66,68). Cervical sources are required for HPV testing. If a vaginal source from a patient who has had a total hysterectomy with removal of cervix was submitted, please contact the testing laboratory for alternative testing options. For additional information, please refer to http://education.[employer]/faq/XQI265z7 (This link if provided for information/ educational purposes only.) Test [facility] [address] [address] [phone] Torin Dunn MD SL Genital SWAB OF ENDOCERVIX / Unknown 05/17/2024 4:26 PM CDT 05/18/2024 3:48 AM CDT us Kendrick Teague MD PATHOLOGY/CYTOLOGY ORDERABLE S Final Result [facility] [phone] [facility] [address] [address] [phone] from Last 3 Months or Most Recently Relevant to Health Maintenance Insurance [employer] [id number] RX [employer] RX Member Subscriber Plan / Payer (Ef fective 2023-Present) Name:Walt Huitron Relation to Subscriber:Self Name:Walt Huitron Subscriber ID:Not on file Payer ID:Not on file Group ID:[id number] Type:RX Commercial Address: [address] [employer] PL[employer] (INTERNAL) [facility] Care Teams Concrete Journeyman Relationship Specialty Start Date End Date Masoud Hayes MD PCP - General Internal Medicine 03/08/12
--- OUTSIDE RECORDS SUMMARY | 2025-02-27 10:45 | XMS_ITS | Referral Summary ---
Author Organization [facility] A Address [address] [place] [address] Care Team Providers Care Mass Communications Professor Name Role Phone Ann Serrano MD Unavailable [phone] Lynn Rodriguez MD Primary Care Provider Encounters Date Type Department Care Team Description 02/21/[address] [facility] at [address] [address] Adelina Little, PT Appointment 02/20/2025 1:00 PM CDT - 02/20/2025 11:59 PM CDT Hospital Encounter [facility] [address] [place] [address] Adam Corrales MD Postdural puncture headache [G97.1] (Primary Dx); New onset of headaches Discharge Disposition: Discharge to home or self care 02/16/2025 9:[address] [facility] at [address] [address] Adelina Little, PT Lymphedema (Primary Dx); Decreased functional mobility and endurance 02/15/2025 9:15 AM CDT Office Visit [facility] Primary Care at [facility] - [address] [place] [phone] Lynn Rodriguez MD Uncontrolled type 2 diabetes mellitus with hyperglycemia (HCC) (Primary Dx); Benign hypertension; Mixed hyperlipidemia; Morbid obesity with BMI of 50.0-59.9, adult (HCC); Moderate persistent asthma without complication; Class 3 severe obesity due to excess calories with serious comorbidity and body mass index (BMI) of 50.0 to 59.9 in adult; 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 [id number] [place] [address] Adam Corrales MD Radiculopathy, lumbosacral region [M54.17] (Primary Dx); Spinal stenosis of lumbar region with neurogenic claudication Discharge Disposition: Discharge to home or self care 02/09/2025 Orders Only [facility] Sleep Medicine at [address] [phone] Iqra Jensen MD JEREMY (obstructive sleep apnea) (Primary Dx) 02/09/2025 9:00 AM CDT Therapy [facility] at [address] [address] Adelina Little, PT Lymphedema (Primary Dx); Decreased functional mobility and endurance 02/07/2025 Plan of Care Documentation [facility] at [address] [address] 02/07/2025 12:[address] [facility] at [address] [address] Ele Vazquez, PT Lymphedema (Primary Dx); Decreased functional mobility and endurance 02/06/2025 9:30 AM CDT - 02/06/2025 11:59 PM CDT Hospital Encounter [facility] [address] [place] [address] [address] [place] [address] Amada Baldwin NP Spinal stenosis of lumbar region with neurogenic claudication (Primary Dx); Radiculopathy, lumbosacral region; Sacroiliitis; Chronic right-sided low back pain with right-sided sciatica; Uncontrolled type 2 diabetes mellitus with hyperglycemia (HCC); Morbid obesity with BMI of 50.0-59.9, adult (HCC); Benign hypertension Discharge Disposition: Discharge to home or self care 02/02/2025 3:02 PM CDT - 02/02/2025 5:[address] [facility] Emergency Department [id number] [place] [address] Sumit Yu MD Fall, initial encounter (Primary Dx) Discharge Disposition: Discharge to home or self care 02/02/[address] [facility] at [address] [address] Adelina Little, PT Appointment 02/02/2025 2:04 PM CDT - 02/02/2025 11:59 PM CDT Hospital Encounter [facility] Radiology [address] [place] [address] Adam Corrales MD Chronic low back pain with sciatica, sciatica laterality unspecified, unspecified back pain laterality Discharge Disposition: Discharge to home or self care 01/30/2025 12:[address] [facility] at [address] [address] Tiffanie Cantu, PT Lymphedema (Primary Dx); Decreased functional mobility and endurance 01/24/2025 Results Follow-Up [facility] Rheumatology [facility] Advanced Medicine 5th [place] [address] [place] [id number] Lucian Trinidad MD PhD XR Wrist Right 3 or More Views 01/24/2025 9:49 AM CDT - 01/24/2025 11:59 PM CDT Hospital Encounter [facility] [address] [place] [address] Lucian Trinidad MD PhD Cutaneous vasculitis Discharge Disposition: Discharge to home or self care 01/24/2025 10:15 AM CDT Lab [facility] [address] [place] [address] 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 9:00 AM CDT Office Visit [facility] Rheumatology [address] [facility] 5th [place] [address] [place] [address] Lucian Trinidad MD PhD Cutaneous vasculitis 01/23/2025 Telephone [facility] Gastroenterology at [address] [place] [address] Graciela Shultz 01/23/2025 12:[address] [facility] at [address] [address] Tiffanie Cantu, PT Lymphedema (Primary Dx); Decreased functional mobility and endurance 01/20/2025 2:[address] [facility] at [address] [address] Tiffanie Cantu, PT Lymphedema (Primary Dx); Decreased functional mobility and endurance 01/19/2025 7:00 PM CDT - 01/19/2025 11:59 PM CDT Hospital Encounter [facility] [address] [place] [address] Obstructive sleep apnea Discharge Disposition: Discharge to home or self care 01/18/2025 3:[address] [facility] at [address] [address] Tiffanie Cantu, PT Lymphedema (Primary Dx); Decreased functional mobility and endurance 01/11/2025 1:[address] [facility] at [address] [place] [address] Tiffanie Cantu, PT Lymphedema (Primary Dx); Decreased functional mobility and endurance 01/10/2025 12:21 PM CDT - 01/10/2025 11:59 PM CDT Hospital Encounter [facility] [address] [place] [address] Adam Corrales MD Chronic low back pain with sciatica, sciatica laterality unspecified, unspecified back pain laterality (Primary Dx); Acute right-sided low back pain with right-sided sciatica; Sacroiliitis; Radiculopathy, lumbosacral region; Chronic right-sided low back pain with right-sided sciatica Discharge Disposition: Discharge to home or self care 01/09/2025 Results Follow-Up [facility] Sleep Medicine at [address] [place] [address] Iqra Jensen MD Ferritin 01/09/2025 Results Follow-Up [facility] Endocrinology Metabolism and Lipid [address] [facility] Medicine 13th [place] [address] [place] [address] Shirley Teixeira PA Vitamin D 25 hydroxy, Vitamin B12, TSH, Additional followed-up results: 6 01/09/2025 3:10 PM CDT Lab [facility] ([facility]) [address] [place] [address] 01/09/2025 2:55 PM CDT Lab [facility] ([facility]) [address] [place] [phone] Uncontrolled type 2 diabetes mellitus with hyperglycemia (HCC); Obstructive sleep apnea; Iron deficiency; Restless leg syndrome 01/09/2025 11:30 AM CDT - 01/09/2025 11:59 PM CDT Hospital Encounter [facility] Breast Imaging [facility] ([facility]) [address] [place] [address] Screening mammogram, encounter for Discharge Disposition: Discharge to home or self care 01/09/2025 10:30 AM CDT Office Visit [facility] Endocrinology Metabolism and Lipid [address] [facility] Medicine 13th [place] [address] [place] [address] Shirley Teixeira PA Uncontrolled type 2 diabetes mellitus with hyperglycemia (HCC) (Primary Dx); Benign hypertension; Mixed hyperlipidemia; Morbid obesity with BMI of 50.0-59.9, adult (HCC); prison 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 at [address] [address] 01/06/2025 Documentation [facility] at [address] [address] Tiffanie Cantu, PT compression script 01/06/[address] [facility] at [address] [address] 01/06/2025 2:00 PM CDT Therapy [facility] at [address] [address] Tiffanie Cantu, PT Lymphedema (Primary Dx); Decreased functional mobility and endurance 01/04/2025 12:00 PM CDT Therapy [facility] at [address] [address] Tiffanie Cantu, PT Lymphedema (Primary Dx); Decreased functional mobility and endurance 01/03/2025 Results Follow-Up [facility] Pulmonary at [address] [phone] Canelo Doan DO Transthoracic Echo (TTE) Complete W Doppler/CF 01/02/2025 9:30 AM CDT Office Visit [facility] Sleep Medicine at [address] [place] [phone] Iqra Jensen MD Obstructive sleep apnea (Primary Dx); Hypersomnia; Obesity, unspecified class, unspecified obesity type, unspecified whether serious comorbidity present; Iron deficiency; Restless leg syndrome 12/30/2024 Telephone [facility] Gastroenterology at [address] [place] [phone] Ad Camacho MD 12/29/20[address] [facility] at [address] [address] 12/29/2024 9:[address] [facility] at [facility] [address] [facility] [address] [place] [address] Ele Vazquez PT Lymphedema (Primary Dx); Decreased functional mobility and endurance 12/23/2024 6:57 AM CDT - 12/23/2024 11:59 PM CDT Hospital Encounter [facility] Cardiology [address] [place] [address] Hypoxia Discharge Disposition: Discharge to home or self care 12/22/2024 Telephone [facility] Gastroenterology at [address] [address] Alex Billings MD 12/21/2024 2:30 PM CDT Office Visit [facility] Primary Care at [address] [facility] [address], [place] [address] Lynn Rodriguez MD Acute right-sided low back [...] Films 12/13/2024 2:30 PM CDT Office Visit [facility] Pulmonary at [place] [address] [facility] [address] [place] [address] Canelo Doan DO Moderate persistent asthma without complication (Primary Dx); Class 3 severe obesity due to excess calories with serious comorbidity and body mass index (BMI) of 45.0 to 49.9 in adult; Chronic hypoxic respiratory failure (HCC); prison 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 user 11/30/2024 3:30 PM CDT Office Visit [facility] Convenient Care at [address] [address] Trower, Minnie M., OFFICE MANAGER RECEPTIONIST Acute non-recurrent frontal sinusitis (Primary Dx) from [...] pain, fever or headaches (pain) 60 tablet 08/13/19 23 Active cetirizine (ZyrTEC) 10 mg tabletIndications :Acute sinusitis, recurrence not specified, unspecified location Take 1 tablet (10 mg total) by mouth daily 30 tablet 08/13/19 23 Active hydroxychloroquin e (PLAQUENIL) 200 mg tablet Take 1 tablet (200 mg total) by mouth 2 (two) times a day 07/09/20 23 Active loratadine (CLARITIN) 10 mg tablet Take 1 tablet (10 mg total) by mouth daily Active diclofenac DR (VOLTAREN) 75 mg EC tablet Take 1 tablet (75 mg total) by mouth 2 (two) times a day 12/29/19 24 Active predniSONE (DELTASONE) 10 mg tablet 02/26/20 24 Active Protonix 40 mg EC tablet 04/19/20 24 Active pamabrom (DIUREX MAX ORAL) 04/20/20 24 Active gabapentin (NEURONTIN) 300 mg capsule 05/03/20 24 Active folic acid (FOLVITE) 1 mg tablet 05/03/20 24 Active lancets 33 gauge miscIndications:U ncontrolled type 2 diabetes mellitus with hyperglycemia (HCC) Use to check blood sugar as directed up to 4 times daily. 400 each 3 07/13/20 24 Active blood-glucose sensor (Dexcom G7 Sensor) deviceIndications :Uncontrolled type 2 diabetes mellitus with hyperglycemia (HCC),prison (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) Use for continuous glucose monitor. Change sensor every 10 days. 9 each 3 07/13/20 24 Active blood glucose diagnostic stripIndications: Uncontrolled type 2 diabetes mellitus with hyperglycemia (HCC) Use to check blood sugar as directed up to 4 times dialy. 400 strip 3 08/09/19 25 Active acetaminophen (TYLENOL) 500 mg tablet Take 1 tablet (500 mg total) by mouth every 6 (six) hours as needed Active methotrexate 2.5 mg tablet Take 5 tablets (12.5 mg total) by mouth 04/20/20 24 Active montelukast (SINGULAIR) 10 mg tablet Take 1 tablet (10 mg total) by mouth nightly Active cyclobenzaprine (FLEXERIL) 10 mg tablet 3 07/11/20 24 Active budesonide-formot [place] (SYMBICORT) 160-4.5 mcg/actuation inhaler Inhale 2 puffs 2 (two) times a day Rinse mouth with water after use. Do not swallow. 1 each 11 11/02/19 25 Active inhalational spacing device spacer 1 each daily 1 each 11/02/19 25 Active traMADoL (ULTRAM) 50 mg tablet Take 1 tablet (50 mg total) by mouth every 8 (eight) hours as needed for pain 30 tablet 11/18/19 25 Active Vitamin D2 1,250 mcg (50,000 unit) capsule TAKE 1 CAPSULE BY MOUTH TWICE WEEKLY 26 capsule 3 12/06/19 25 Active lidocaine (LIDODERM) 5 % Apply 1 patch topically daily; leave on most painful area for up to 12 hrs 12/09/19 25 Active famotidine (PEPCID) 20 mg tablet Take 1 tablet (20 mg total) by mouth daily 12/20/19 25 Active dicyclomine (BENTYL) 20 mg tablet Take 1 tablet (20 mg total) by mouth 3 (three) times a day as needed 12/20/19 25 Active LYUMJEV 100 unit/mL pen for injectionIndicati ons:Uncontrolled type 2 diabetes mellitus with hyperglycemia (HCC) INJECT SUBCUTANEOUSLY 10 UNITS BEFORE MEALS PLUS SLIDING SCALE 1 UNIT FOR EVERY 25 POINTS >150; MAXIMUM DAILY DOSE: 55 UNITS 60 mL 3 01/05/20 25 Active albuterol 2.5 mg /3 mL (0.083 %) nebulizer solution USE 1 VIAL VIA NEBULIZER EVERY 6 HOURS NEEDED FOR WHEEZING (SOLUTIONS MANAGER RECOMMENDS NOT EXCEEDING 4 VIALS/DAY) 600 mL 6 01/05/20 25 Active albuterol HFA (PROVENTIL HFA,VENTOLIN HFA,PROAIR HFA) 90 mcg/actuation inhaler USE 2 INHALATIONS BY MOUTH EVERY 4 HOURS NEEDED FOR WHEEZING OR SHORTNESS OF BREATH 51 g 01/05/20 25 Active Baqsimi 3 mg/actuation spray,non-aerosol Indications:Uncon trolled type 2 diabetes mellitus with hyperglycemia (HCC) INSERT DEVICE TIP INTO 1 NOSTRIL PUSH DEVICE PLUNGER UNTIL GREEN LINE DISAPPEARS. NEEDED IN CASE OF EMERGENCY LOW BLOOD SUGARS. 1 each 01/05/20 25 Active lisinopriL (PRINIVIL,ZESTRIL ) 40 mg tablet Take 1 tablet (40 mg total) by mouth daily 90 tablet 01/10/20 25 026 Active atorvastatin (LIPITOR) 40 mg tabletIndications :Uncontrolled type 2 diabetes mellitus with hyperglycemia (HCC),Mixed hyperlipidemia Take 1 tablet (40 mg total) by mouth daily 90 tablet 01/10/20 25 026 Active buprenorphine (Belbuca) 150 mcg film buccal filmIndications:C hronic right-sided low back pain with right-sided sciatica,Sacroili itis,Radiculopath y, lumbosacral region Apply 1 each (150 mcg total) to cheek 2 (two) times a day 60 each 01/12/20 25 Active metoprolol tartrate (LOPRESSOR) 25 mg immediate release tablet Take 0.5 tablets (12.5 mg total) by mouth 2 (two) times a day 90 tablet 1 01/18/20 25 025 Active insulin glargine (LANTUS) 100 unit/mL (3 mL) pen for injectionIndicati ons:Uncontrolled type 2 diabetes mellitus with hyperglycemia (HCC) INJECT SUBCUTANEOUSLY 40 UNITS TWICE DAILY 75 mL 3 01/27/20 25 Active sulfamethoxazole- trimethoprim (BACTRIM DS) 800-160 mg per tablet TAKE 1 TABLET BY MOUTH 3 TIMES WEEKLY 12 tablet 1 01/27/20 25 Active pen needle, diabetic (Izabella 2nd Gen Pen Needle) 32 gauge x 5/32 needle USE TO INJECT INSULIN UP TO 5 TIMES DAILY DIRECTED 450 each 3 01/27/20 25 Active predniSONE (DELTASONE) 10 mg tablet Take 4 tablets (40 mg) by mouth daily for 30 days, THEN 3.5 tablets (35 mg) daily for 30 days, THEN 3 tablets (30 mg) daily. 315 tablet 02/03/20 25 025 Active zolpidem (AMBIEN) 10 mg tabletIndications :Sleep-Onset Insomnia Take 1 tablet (10 mg total) by mouth nightly as needed for sleep (for sleep study) 1 tablet 02/10/20 25 025 Active venlafaxine XR (EFFEXOR-XR) 150 mg 24 hr capsule Take 1 capsule (150 mg total) by mouth daily 100 capsule 1 02/21/20 25 Active tirzepatide (Mounjaro) 15 mg/0.5 mL pen injector injectionIndicati ons:Uncontrolled type 2 diabetes mellitus with hyperglycemia (HCC) Inject 0.5 mL (15 mg total) under the skin every 7 days 6 mL 3 02/23/20 25 Active venlafaxine XR (EFFEXOR-XR) 150 mg 24 hr capsule Take 1 capsule (150 mg total) by mouth daily 30 capsule 07/10/20 24 025 Disconti nued(Reo rder) tirzepatide (Mounjaro) 15 mg/0.5 mL pen injector injectionIndicati ons:Uncontrolled type 2 diabetes mellitus with hyperglycemia (HCC) Inject 0.5 mL (15 mg total) under the skin every 7 days 6 mL 3 01/10/20 25 025 Disconti nued(Reo rder) Active Problems Problem Noted Date Diagnosed Date [...] Follow up pulmonary Impaired mobility 07/29/2024 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 Assessment & Plan (01/17/2022 10:21 AM CDT): Stable on current medication regimen. Assessment & Plan (07/17/2021 2:07 PM MANAGER SWITCH): Better controlled on venlafaxine. Assessment & Plan (04/22/2021 8:25 AM CDT): Restart venlafaxine and warned of side effects and call back if any develop or if no improvement. 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 Unfortunately lab work and skin biopsy inconclusive. Discussed possible rheumatology 2nd opinion here at [facility] and patient will call back if desired. Assessment & Plan (06/15/2023 10:48 AM MANAGER SWITCH): Certainly making a case for underlying vasculitis [...] condition. Assessment & Plan (06/20/2020 9:35 AM MANAGER SWITCH): Unclear etiology but I am thinking of [...] tolerated Assessment & Plan (08/26/2024 6:10 PM MANAGER SWITCH): Body mass index is 49.1 kg/m . BMI Follow-up includes: nutrition counseling, exercise counseling, and education provided. Assessment & Plan (07/13/2024 12:20 PM MANAGER SWITCH): - Increase Mounjaro to 10 mg weekly [...] tolerated. Assessment & Plan (06/08/2023 5:23 PM MANAGER SWITCH): Patient is encouraged to lose weight with a combination of caloric reduction and increased exercise. Various strategies discussed. The long-term risks associated with continued morbid obesity discussed. Assessment & Plan (09/04/2022 2:34 PM MANAGER SWITCH): Patient is encouraged to lose weight with a combination of caloric reduction and increased exercise. Various strategies discussed. The long-term risks associated with continued morbid obesity discussed. Assessment & Plan (08/02/2022 12:16 PM MANAGER SWITCH): Patient is encouraged to lose weight with [...] discussed. Assessment & Plan (07/13/2020 8:34 AM MANAGER SWITCH): Patient is encouraged to lose weight with a combination of caloric reduction and increased exercise. Various strategies discussed. The long-term risks associated with continued morbid obesity discussed. Assessment & Plan (06/20/2020 9:35 AM MANAGER SWITCH): Patient is encouraged to lose weight with a combination of caloric reduction and increased exercise. Various strategies discussed. The long-term risks associated with continued morbid obesity discussed. Assessment & Plan (07/08/2019 8:44 AM MANAGER SWITCH): Patient is encouraged to lose weight with a combination of caloric reduction and increased exercise. Various strategies discussed. The long-term risks associated with continued morbid obesity discussed. Irregular menses 06/03/2019 Allergic rhinitis 07/05/2018 Assessment & Plan (02/23/2023 1:30 PM CDT): Nasal saline spray (Simply saline, [employer] Remedies, [place], [place]) 2 second sprays or 2 squeezes [...] daily Assessment & Plan (07/17/2021 2:07 PM MANAGER SWITCH): Claritin montelukast. Assessment & Plan (04/22/2021 8:25 AM CDT): Currently using Claritin and montelukast. She has not been trying Flonase as her nose is being to congested. Recommended sinus rinses her using a hot warm shower. Could also try Afrin for few days. Assessment & Plan (07/08/2019 8:43 AM MANAGER SWITCH): Add montelukast to her Claritin. She struggles with nasal sprays due to chronic congestion. Assessment & Plan (07/05/2018 9:24 AM MANAGER SWITCH): Try Afrin for 3 days along with [...] mg/dL Assessment & Plan (07/13/2024 12:21 PM MANAGER SWITCH): - Last LDL 103, TG 308, TC [...] triglycerides. Assessment & Plan (09/12/2023 8:12 PM MANAGER SWITCH): Continue statin and optimize glycemic control Assessment & Plan (02/16/2023 8:14 PM CDT): Continue statin and optimize glycemic control Assessment & Plan (01/21/2023 9:50 AM CDT): Continue her atorvastatin and work on diet exercise and check lipids and LFTs before next visit. Assessment & Plan (08/02/2022 12:15 PM MANAGER SWITCH): Well controlled on current therapy and will check a lipid panel and LFTs in 6 months. Assessment & Plan (01/17/2022 10:21 AM CDT): Well controlled on current therapy and will check a lipid panel and LFTs in 6 months. Assessment & Plan (07/17/2021 2:06 PM MANAGER SWITCH): Well controlled on current therapy and will check a lipid panel and LFTs in 6 months. Assessment & Plan (06/24/2021 3:28 PM MANAGER SWITCH): Continue statin and optimize glycemic control Assessment & Plan (12/19/2020 7:53 AM CDT): Continue statin and optimize glycemic control Assessment & Plan (07/13/2020 8:34 AM MANAGER SWITCH): Well controlled on current therapy and will check a lipid panel and LFTs in 6 months. Assessment & Plan (06/08/2020 8:31 AM MANAGER SWITCH): LDL within goal. Continue statin and optimize glycemic control Assessment & Plan (07/08/2019 8:42 AM MANAGER SWITCH): Well controlled on current therapy and will check a lipid panel and LFTs in 12 months. Assessment & Plan (09/01/2018 2:22 PM MANAGER SWITCH): Continue statin, optimize glycemic control Assessment & Plan (07/05/2018 9:23 AM MANAGER SWITCH): Well controlled on current therapy and will check a lipid panel and LFTs in 6 months. Assessment & Plan (08/26/2017 4:27 PM MANAGER SWITCH): Start atorvastatin and check lipids and LFTs in 3-4 months. Call back for results. Vitamin D deficiency 07/02/2017 Assessment & Plan (07/13/2024 12:22 PM MANAGER SWITCH): - Last Vitamin D 42 (12/2023), replete [...] week Assessment & Plan (09/12/2023 8:12 PM MANAGER SWITCH): Continue long-term supplement Assessment & Plan (02/16/2023 8:14 PM CDT): Continue long-term supplement Assessment & Plan (08/02/2022 12:15 PM MANAGER SWITCH): Continue current supplementation and check level in 1 year. Assessment & Plan (07/17/2021 2:06 PM MANAGER SWITCH): Continue current supplementation and check level in 1 year. Assessment & Plan (06/24/2021 3:29 PM MANAGER SWITCH): Continue long-term supplement Assessment & Plan (12/19/2020 7:53 AM CDT): Continue long-term supplement Assessment & Plan (07/13/2020 8:33 AM MANAGER SWITCH): Continue current supplementation and check level in 1 year. Assessment & Plan (06/08/2020 8:31 AM MANAGER SWITCH): Vitamin-D level within goal, continue chronic supplement Assessment & Plan (07/08/2019 8:42 AM MANAGER SWITCH): Continue current supplementation and check level in 1 year. Assessment & Plan (06/03/2019 8:24 AM CDT): Recently ran out of supplement, so we will restart and check her level today. Also check B12 Assessment & Plan (09/01/2018 2:22 PM MANAGER SWITCH): Continue supplement Assessment & Plan (07/05/2018 9:23 AM MANAGER SWITCH): Continue current supplementation and check level in 1 year. Assessment & Plan (08/26/2017 4:26 PM MANAGER SWITCH): Continue current supplementation and check level in [...] Value Date HGBA1C 8.9 (A) 01/09/2025 Per [place] [employer], goal A1c is less 7% [...] Component Value Date HGBA1C 11.7 07/13/2024 Per [employer] [employer], goal A1c is less 7% [...] etc. Assessment & Plan (08/26/2024 6:10 PM MANAGER SWITCH): Assessment & Plan (07/13/2024 12:20 PM MANAGER SWITCH): - Diabetes is complicated by hyperlipidemia, hypertension, morbid obesity and chronic steroid use. Uncontrolled. Lab Results Component Value Date HGBA1C 11.7 07/13/2024 Per [employer] [employer], goal A1c is less 7% [...] in prescriptions for both Dexcom G7 and KILTRStyle Silva 3 CGM for mcmillan checking. Also [...] Return visit 3 months to see the OFFICE MANAGER RECEPTIONIST/PA, 6 months to see me. Assessment & [...] Component Value Date HGBA1C 12.5 11/17/2023 Per [employer] [employer], goal A1c is less 7% [...] that I am available via phone or [facility] if they have any concerns for hypo/hyperglycemia, medication refills, etc. Assessment & Plan (11/18/2023 8:23 AM CDT): - Diabetes is complicated by HTN, HLD, steroid use, hyperglycemia and obesity. Uncontrolled. Lab Results Component Value Date HGBA1C 12.5 11/17/2023 Per [employer] [employer], goal A1c is less 7% without significant hypoglycemia. - Management Goal: re-start and adherence to medication regimen - Continue current medication regimen at this time. - Patient called local pharmacy to confirm that they do have prescriptions for her Semglee. 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 - Insurance [...] etc. Assessment & Plan (09/12/2023 8:13 PM MANAGER SWITCH): Very high glucoses; multifactorial including steroid therapy, [...] daily. Assessment & Plan (06/24/2021 3:29 PM MANAGER SWITCH): Much improved but needs a little more basal insulin. Assessment & Plan (12/19/2020 7:53 AM CDT): Multiple medications, but now requires insulin. We can gradually adjust her Lantus based on her clinical response. Assessment & Plan (06/08/2020 8:32 AM MANAGER SWITCH): Glucoses somewhat better now that she is [...] motivator. Assessment & Plan (07/08/2019 8:43 AM MANAGER SWITCH): Continue increased dose of Ozempic and also continue Invokana. Importance of dietary changes increase exercise weight loss discussed. Follow-up with her sales and marketing intern as they direct. Assessment & Plan (06/03/2019 8:25 AM CDT): Somewhat suboptimal, would benefit from increasing Ozempic and continuing efforts with diet and lifestyle. Needs follow-up labs Assessment & Plan (09/01/2018 2:22 PM MANAGER SWITCH): Glucoses a little high, but she has bruising with Victoza so she may benefit by changing to weekly Ozempic, which is a little stronger, as well. Jardiance is been ineffective, so we may need to provide preauthorization for Invokana Assessment & Plan (07/05/2018 9:23 AM MANAGER SWITCH): A1c above goal. We stressed importance of increased exercise, reduce calories, weight loss. Could consider switching Victoza to ozempic. Otherwise does not tolerate metformin or sulfonylureas. May need insulin soon. She is directed to follow up with her sales and marketing intern more quickly than her next scheduled appointment in November. Assessment & Plan (08/26/2017 4:26 PM MANAGER SWITCH): Continue current medication regimen and follow up with her sales and marketing intern as they direct. Low carb diet weight [...] mmHg Assessment & Plan (07/13/2024 12:21 PM MANAGER SWITCH): - Above goal today - Encouraged her [...] monitor. Assessment & Plan (06/08/2023 5:25 PM MANAGER SWITCH): Stop amlodipine with current issues of swelling. Pressure currently well controlled and should monitor at home Assessment & Plan (01/21/2023 9:49 AM CDT): Blood pressure well controlled on lisinopril Assessment & Plan (09/04/2022 2:34 PM MANAGER SWITCH): Blood pressure well controlled on her lisinopril. Assessment & Plan (08/02/2022 12:15 PM MANAGER SWITCH): Increase lisinopril to 20 mg daily. Monitor blood pressure at home call back if no improvement. Assessment & Plan (01/17/2022 10:21 AM CDT): Well controlled on the current regimen. Avoidance of salt, proper body weight, and routine exercise recommended. Assessment & Plan (07/17/2021 2:06 PM MANAGER SWITCH): Well controlled on the current regimen. Avoidance of salt, proper body weight, and routine exercise recommended. Assessment & Plan (04/22/2021 8:24 AM CDT): Well controlled on the current regimen. Avoidance of salt, proper body weight, and routine exercise recommended. Assessment & Plan (07/13/2020 8:34 AM MANAGER SWITCH): Well controlled on the current regimen. Avoidance of salt, proper body weight, and routine exercise recommended. Assessment & Plan (07/08/2019 8:42 AM MANAGER SWITCH): Well controlled on the current regimen. Avoidance of salt, proper body weight, and routine exercise recommended. Assessment & Plan (09/01/2018 2:21 PM MANAGER SWITCH): Blood pressure close to target, working on diet and lifestyle Assessment & Plan (07/05/2018 9:23 AM MANAGER SWITCH): Well controlled on the current regimen. Avoidance of salt, proper body weight, and routine exercise recommended. Assessment & Plan (08/26/2017 4:25 PM MANAGER SWITCH): Well controlled on the current regimen. Avoidance [...] montelukast Assessment & Plan (08/26/2024 6:08 PM MANAGER SWITCH): Recent exacerbation due to CAP followed by RSV Symptoms improved Continue present plan and medication--albuterol prn, montelukast Assessment & Plan (07/13/2020 8:36 AM MANAGER SWITCH): Doing well on her Symbicort. Okay to discontinue and use albuterol only as needed. Restart Symbicort if uses her albuterol more than 2 times a week. Obstructive sleep apnea 04/01/2012 Overview (11/12/2017): Description: CPAP Assessment & Plan (01/06/2024 9:08 AM CDT): Patient is compliant with the CPAP machine and gets symptomatic relief. Assessment & Plan (08/02/2022 12:15 PM MANAGER SWITCH): Patient is compliant with the CPAP machine and gets symptomatic relief. Assessment & Plan (07/17/2021 2:06 PM MANAGER SWITCH): Repeat sleep study confirmed obstructive sleep apnea [...] syndrome. Assessment & Plan (07/13/2020 8:34 AM MANAGER SWITCH): Patient is compliant with the CPAP machine and gets symptomatic relief. Assessment & Plan (07/08/2019 8:42 AM MANAGER SWITCH): Patient is compliant with the CPAP machine and gets symptomatic relief. Female infertility associated with anovulation 0 09/21/2011 Resolved Problems Problem Noted Date Diagnosed Date Resolved Date Decreased functional mobility and endurance 12/29/2024 02/15/2025 Uncontrolled diabetes mellit us with hyperglycemia 08/14/2024 12/21/2024 Acute hypoxic respiratory failure 08/13/2024 12/21/2024 Assessment & Plan (08/26/2024 6:09 PM MANAGER SWITCH): Recent hospitalization likely for CAP followed by [...] legs Assessment & Plan (06/15/2023 10:47 AM MANAGER SWITCH): Improved after addition of doxycycline to her Bactrim. Call back if symptoms worsen after doxycycline runs out Assessment & Plan (06/08/2023 5:25 PM MANAGER SWITCH): Seems like cellulitis slow to improve either [...] 12/21/2024 Assessment & Plan (09/04/2022 2:35 PM MANAGER SWITCH): No signs of neurological abnormality on examination [...] Continue other medications as directed by her sales and marketing intern. Diet exercise discussed. Hopefully may be able to wean prednisone in the near future as well. Assessment & Plan (06/15/2023 10:48 AM MANAGER SWITCH): She knows that the steroids will exacerbate her hyperglycemia and should be in contact with her sales and marketing intern for management. Assessment & Plan (06/08/2023 5:26 PM MANAGER SWITCH): Poor control of her diabetes prior to this hospitalization and even worse now on prednisone. Follow-up with her sales and marketing intern for management. Diet exercise weight loss recommended. Assessment & Plan (01/21/2023 9:50 AM CDT): Blood sugars remain above goal. Hopefully the recent addition of mounjaro will help significantly. Discuss up titration of this and her mealtime insulin with her sales and marketing intern. Diet exercise discussed. Check A1c and fasting blood sugar before next visit. Assessment & Plan (08/02/2022 12:16 PM MANAGER SWITCH): A1c poorly controlled. Importance of diet exercise weight loss discussed at length. Continue her Ozempic and insulin and needs to contact her sales and marketing intern soon as possible for guidance on further therapy. Assessment & Plan (01/17/2022 10:22 AM CDT): Patient aware A1c grossly uncontrolled. Must work on diet exercise and weight loss. She has to get back on her insulin and should discuss this today with her sales and marketing intern. Risks posed her health with poor glycemic control discussed. Assessment & Plan (07/13/2020 8:34 AM MANAGER SWITCH): A1c above goal. Importance of diet exercise weight loss discussed. Continue current medication regimen and follow-up with her sales and marketing intern as they direct. Dyslipidemia 06/03/2019 07/13/2020 Healthcare [...] yearly. Colonoscopy due March 2027. Follow-up the cane burner for breast exam pelvic exam as they direct. Will see her back in about 6 months sooner if needed. Assessment & Plan (08/02/2022 12:17 PM MANAGER SWITCH): Flu shot each May. Tetanus booster every 10 years. Pneumovax completed. COVID booster recommended. Mammogram yearly. Colonoscopy due March 2027. Follow-up the cane burner for breast exam pelvic exam as they direct. Will see her back in 6 months with lab sooner if needed. Assessment & Plan (07/17/2021 2:08 PM MANAGER SWITCH): Flu shot each May. Tetanus booster every 10 years. Pneumovax completed. COVID vaccine completed. Mammogram yearly. Colonoscopy ordered and she should verify coverage before proceeding. Follow-up the cane burner for breast exam and pelvic exam as they direct. We will see her back in 1 year for physical and fasting lab sooner if needed. Assessment & Plan (07/13/2020 8:35 AM MANAGER SWITCH): Flu shot each May. Tetanus booster every 10 years. She has had a Pneumovax. Mammogram was abnormal back in August and she has delayed follow-up studies until now and she is urged to get her diagnostic and ultrasound studies done at her earliest convenience and she is aware of the risks posed her health with delay in proceeding. Follow-up the cane burner for breast exam and pelvic exam as they direct. We will see her back in 1 year for wellness visit fasting lab sooner if needed. Assessment & Plan (07/08/2019 8:43 AM MANAGER SWITCH): Flu shot each May. Tetanus booster every 10 years. Mammogram ordered. Will see her back in 1 year for physical and fasting lab sooner if needed. Assessment & Plan (07/05/2018 9:24 AM MANAGER SWITCH): Tetanus booster today. Flu shot each May. Mammogram ordered. Patient should follow-up the cane burner breast exam and pelvic exam. We will see her back in 1 year for wellness visit fasting lab sooner if needed. Assessment & Plan (08/26/2017 4:27 PM MANAGER SWITCH): Flu shot each May. Tetanus booster every 10 years. See her cane burner for breast exam mammogram and Pap smear [...] aerobics Assessment & Plan (08/26/2017 4:28 PM MANAGER SWITCH): Patient is encouraged to lose weight with [...] Unspecified 05/16/2021,2020,04/22/2021(Defer red: Patient Refused),03/19/2021(Deferred: Patient Refused),05/12/2019,05/07/2017 [employer] (J&J) SARS-CoV-2 Vaccination 10/05/2020 Pneumococcal Conjugate Pcv20 [...] on file Legal Sex Female 11:54 PM MANAGER SWITCH Gender Identity Female 09/19/2020 8:37 AM MANAGER SWITCH Sexual Orientation Straight 09/19/2020 8: 37 AM MANAGER SWITCH Last Filed Vital Signs Vital Sign Reading Time Taken Comments Blood Pressure 145/84 02/20/2025 2:30 PM CDT Pulse 100 02/20/2025 2:30 PM CDT Temperature 36.6 C (97.8 F) 02/20/2025 1:49 PM CDT Respiratory Rate 16 02/20/2025 2:30 PM CDT Oxygen Saturation 99% 02/20/2025 2:30 PM CDT Inhaled Oxygen Concentration - - Weight 150.6 kg (332 lb) 02/15/2025 8:43 AM CDT Height 167.6 cm (5' 6) 02/15/2025 8:43 AM CDT Body Mass Index 53.59 02/15/2025 8:43 AM CDT Plan of Treatment Upcoming Encounters Date Type Department Care Team (Latest Contact Info) Description 04/27/2025 7:30 AM CDT Hospital Encounter [address] [address] Ad Camacho MD [address] [facility] [place] [address] 04/27/2025 7:30 AM CDT - 04/27/2025 8:00 AM CDT Surgery [address] [address]Ad Garcia MD [address] [facility] [place] [address] ESOPHAGOGASTRODUODENOSCOPY Scheduled Procedures Name Priority Associated Diagnoses Date/Ti wv ESOPHAGOGASTRODUODENOSCOPY Dysphagia, unspecified type 04/27/2025 7:30 AM CDT Procedures Procedure Name Priority Date/Time Associated Diagnosis Comments PAIN MGMT IMAGING EPIDURAL BLOOD PATCH Schedule Routine, Read Routine (OP Routine) 02/20/2025 2:32 PM CDT New onset of headaches NOTE Routine 02/15/2025 10:41 AM CDT C4 COMPLEMENT Routine 02/15/2025 10:41 AM CDT Cutaneous vasculitis C3 COMPLEMENT Routine 02/15/2025 10:41 AM CDT Cutaneous vasculitis ALDOLASE Routine 02/15/2025 10:41 AM CDT Cutaneous vasculitis [...] Routine 02/15/2025 10:41 AM CDT Cutaneous vasculitis CRYOGLOBULIN, SERUM AND PLASMA Routine 02/15/2025 10:41 AM CDT Cutaneous vasculitis [...] Recently Relevant to Health Maintenance Results * Imaging Epidural Blood Patch (54012) (02/20/2025 2:32 PM CDT) Narrative [facility] - 02/20/2025 2:33 PM CDT The images from this study are not interpreted by Radiology. Please refer to the physician's procedure / OR operative note. us Adam Corrales MD IMG PAIN MGMT PROCEDU RES Final Result [facility] * LALO ab ql w/rflx to LALO qn (02/15/2025 10:41 AM CDT) LALO, qual NEGATIVE NEGATIVE [facility] Comment: LALO IFA is a first line [...] AC-0: Negative International Consensus on LALO Patterns (https://doi.org/10.1515/uags-4126-4174) For additional information, please refer to http://education.Filement/faq/URP342 (This link is being provided for informational/ educational purposes only.) Blood 02/15/2025 10:4 1 AM CDT 02/15/2025 10:43 AM CDT Narrative [facility] - 02/21/2025 7:05 PM CDT FASTING:YES FASTING: YES Lucian Trinidad MD PhD LAB BLOOD ORDERABLE S Final Result Performing Organization Address [facility] de Phone Number [facility] [address] [place] [address] * Anti-double stranded DNA abs (02/15/2025 10:41 AM CDT) Pathologist [facility] DNA (DS) ab <1 IU/mL [facility] Comment: IU/mL Interpretation < or = 4 Negative 5-9 Indeterminate > or = 10 Positive Blood 02/15/2025 10:4 1 AM CDT 02/15/2025 10:43 AM CDT Narrative [facility] - 02/21/2025 7:05 PM CDT FASTING:YES FASTING: YES Lucian Trinidad MD PhD LAB BLOOD ORDERABLE S Final Result Performing Organization Address [facility] Co de Phone Number [facility] [address] [place] [address] * NOTE (02/15/2025 10:41 AM CDT) Note [facility] Comment: This urine was analyzed for the presence of WBC, RBC, bacteria, casts, and other formed elements. Only those elements seen were reported. 02/15/2025 10:4 1 AM CDT 02/15/2025 10:43 AM CDT Narrative [facility] - 02/21/2025 7:05 PM CDT FASTING:YES FASTING: YES Lucian Trinidad MD PhD LAB BLOOD ORDERABLE S Final Result Performing Organization Address [facility] de Phone Number [facility] [address] [place] [address] * C4 complement (02/15/2025 10:41 AM CDT) Complement component C4C 24 15 - 57 mg/dL [facility] Blood 02/15/2025 10:4 1 AM CDT 02/15/2025 10:43 AM CDT Narrative [facility] - 02/21/2025 7:05 PM CDT FASTING:YES FASTING: YES Lucian Trinidad MD PhD LAB BLOOD ORDERABLE S Final Result Performing Organization Address [facility] Phone Number [facility] [address] [place] [address] * PR3 - proteinase 3, Ab (02/15/2025 10:41 AM CDT) Proteinase-3 ab <1.0 [facility] Comment: Value Interpretation ----- <1.0 No Antibody Detected > or = 1.0 Antibody Detected Autoantibodies to proteinase-3 (AK-3) are accepted as characteristic for granulomatosis with polyangiitis (GPA, Brent's), and are detectable in 95% of the histologically proven cases. The cytoplasmic IFA pattern, (c-ANCA), is based largely on autoantibody to AK-3 which serves as the primary antigen. These autoantibodies are present in active disease. Blood 02/15/2025 10:4 1 AM CDT 02/15/2025 10:43 AM CDT Narrative [facility] - 02/21/2025 7:05 PM CDT FASTING:YES FASTING: YES Lucian Trinidad MD PhD LAB BLOOD ORDERABLE S Final Result Performing Organization Address [facility] de Phone Number [facility] [address] [place] [address] * MPO - myeloperoxidase antibody (02/15/2025 10:41 AM CDT) MYELOPEROXIDASE ANTIBODY <1.0 AI [facility] Comment: Value Interpretation ----- <1.0 No Antibody [...] 02/15/2025 10:43 AM CDT Narrative [facility] - 02/21/2025 7:05 PM CDT FASTING:YES FASTING: YES Lucian Trinidad MD PhD LAB BLOOD ORDERABLE S Final Result Performing Organization Address [facility] de Phone Number [facility] [address] [place] [address] * (ABNORMAL) Urinalysis reflex to microscopic (02/15/2025 10:41 AM CDT) Color, ur YELLOW YELLOW [facility] Appearance, ur CLOUDY(A) CLEAR [facility] Specific gravity 1.039(H) 1.001 - 1.035 [facility] pH, ur < OR = 5.0(A) 5.0 - 8.0 [facility] Glucose, ur 2+(A) NEGATIVE [facility] Bilirubin, ur NEGATIVE NEGATIVE [facility] Ketones, ur TRACE(A) NEGATIVE [facility] Blood, ur 1+(A) NEGATIVE [facility] Protein, ur, quant 1+(A) NEGATIVE [facility] Nitrites, ur NEGATIVE NEGATIVE [facility] Leukocyte esterase, ur NEGATIVE NEGATIVE [facility] WBC, ur NONE SEEN < OR = 5 /HPF [facility] RBC, ur NONE SEEN < OR = 2 /HPF [facility] Epithelial cells, squamous, ur 20-40(A) < OR = 5 /HPF [facility] Bacteria, ur, quant FEW(A) NONE SEEN /HPF [facility] Hyaline cast NONE SEEN NONE SEEN /LPF [facility] Yeast, ur MANY(A) NONE SEEN /HPF [facility] Urine 02/15/2025 10:4 1 AM CDT 02/15/2025 10:43 AM CDT Narrative [facility] - 02/21/2025 7:05 PM CDT FASTING:YES FASTING: YES us Lucian Trinidad MD PhD LAB URINE ORDERABLE S Final Result [facility] [address] [place] [address] * (ABNORMAL) CBC with auto differential (02/15/2025 [...] 02/15/2025 10:43 AM CDT Narrative [facility] - 02/21/2025 7:05 PM CDT FASTING:YES FASTING: YES us Lucian Trinidad MD PhD LAB BLOOD ORDERABLE S Final Result [facility] [address] [address] * Cyclic citrul peptide antibody, IgG (02/15/2025 10:41 AM CDT) [facility] Cyclic citrullinated peptide ab, IgG <16 UNITS [facility] Comment: Reference Range Negative: <20 Weak Positive: 20-39 Moderate Positive: 40-59 Strong Positive: >59 Blood 02/15/2025 10:4 1 AM CDT 02/15/2025 10:43 AM CDT Narrative [facility] - 02/21/2025 7:05 PM CDT FASTING:YES FASTING: YES Lucian Trinidad MD PhD LAB BLOOD ORDERABLE S Final Result Performing Organization Address [facility] Co de Phone Number [facility] [address] [place] [address] * (ABNORMAL) Protein / creatinine ratio, urine, random (02/15/2025 10:41 AM CDT) Creatinine, ur 209 20 - 275 mg/dL [facility] Protein/creatin ine ratio 177 24 - 184 mg/g creat [facility] Protein/Creatin ine Ratio 0.177 0.024 - 0.184 mg/mg creat [facility] Protein, ur, quant 37(H) 5 - 24 mg/dL [facility] Urine 02/15/2025 10:4 1 AM CDT 02/15/2025 10:43 AM CDT Narrative [facility] - 02/21/2025 7:05 PM CDT FASTING:YES FASTING: YES us Lucian Trinidad MD PhD LAB URINE ORDERABLE S Final Result Performing Organization Address [facility] Co de Phone Number [facility] [address] [place] [address] * Cryoglobulin, Serum and Plasma (02/15/2025 10:41 AM CDT) Cryoglobulin, Qual Negative Negative [facility] Comment: The Cryocrit is primarily intended for following a patient with previously defined and quantitated cryoglobulins. The cryocrit may consist of cryoglobulins, fibrins, complement, or mixtures of these. Blood 02/15/2025 10:4 1 AM CDT 02/15/2025 10:43 AM CDT Narrative [facility] - 02/21/2025 7:05 PM CDT FASTING:YES FASTING: YES us Lucian Trinidad MD PhD LAB BLOOD ORDERABLE S Final Result Performing Organization Address [facility] Co de Phone Number [facility] [address] [place] [address] * Aldolase (02/15/2025 10:41 AM CDT) ALDOLASE 6.6 < OR = 8.1 U/L [facility] Blood 02/15/2025 10:4 1 AM CDT 02/15/2025 10:43 AM CDT Narrative [facility] - 02/21/2025 7:05 PM CDT FASTING:YES FASTING: YES us Lucian Trinidad MD PhD LAB BLOOD ORDERABLE S Final Result Performing Organization Address [facility] de Phone Number [facility] [address] [place] [address] * Erythrocyte sedimentation rate (02/15/2025 10:41 AM CDT) Erythrocyte sedimentation rate 6 < OR = 20 mm/h [facility] Blood 02/15/2025 10:4 1 AM CDT 02/15/2025 10:43 AM CDT Narrative [facility] - 02/21/2025 7:05 PM CDT FASTING:YES FASTING: YES Lucian Trinidad MD PhD LAB BLOOD ORDERABLE S Final Result Performing Organization Address [facility] de Phone Number [facility] [address] [place] [address] * Rheumatoid factor (02/15/2025 10:41 AM CDT) Rheumatoid factor, quant <10 <14 IU/mL [facility] Blood 02/15/2025 10:4 1 AM CDT 02/15/2025 10:43 AM CDT Narrative [facility] - 02/21/2025 7:05 PM CDT FASTING:YES FASTING: YES Lucian Trinidad MD PhD LAB BLOOD ORDERABLE S Final Result Performing Organization Address [facility] de Phone Number [facility] [address] [place] [address] * C3 complement (02/15/2025 10:41 AM CDT) Pathologist [facility] Complement component C3C 188 83 - 193 mg/dL [facility] Blood 02/15/2025 10:4 1 AM CDT 02/15/2025 10:43 AM CDT Narrative [facility] - 02/21/2025 7:05 PM CDT FASTING:YES FASTING: YES Lucian Trinidad MD PhD LAB BLOOD ORDERABLE S Final Result Performing Organization Address [facility] Phone Number [facility] [address] [place] [address] * CRP (cardiac risk) (02/15/2025 10:41 AM CDT) Pathologist [facility] hsCRP 2.9 mg/L [facility] Comment: Reference Range Optimal <1.0 Yobani PS et al. Endocr Pract.2017;23(Suppl 2):1-87. For ages [...] for Disease Control and Prevention and the [place] [employer]. Circulation 2003; 107(3): 499-511. Blood 02/15/2025 10:4 1 AM CDT 02/15/2025 10:43 AM CDT Narrative QUEST - 02/21/2025 7:05 PM CDT FASTING:YES FASTING: YES Lucian Trinidad MD PhD LAB BLOOD ORDERABLE S Final Result Performing Organization Address [facility]/ZIP Co de Phone Number PILO [facility] [address] [place] [address] * Creatine kinase (CK), total (02/15/2025 10:41 AM CDT) CK 82 20 - 239 U/L [facility] Blood 02/15/2025 10:4 1 AM CDT 02/15/2025 10:43 AM CDT Narrative QUEST - 02/21/2025 7:05 PM CDT FASTING:YES FASTING: YES Lucian Trinidad MD PhD LAB BLOOD ORDERABLE S Final Result Performing Organization Address [facility] de Phone Number [facility] [address] [place] [address] * (ABNORMAL) Comprehensive metabolic panel (02/15/2025 10:41 [...] 02/15/2025 10:43 AM CDT Narrative QUEST - 02/21/2025 7:05 PM CDT FASTING:YES FASTING: YES us Lucian Trinidad MD PhD LAB BLOOD ORDERABLE S Final Result Performing Organization Address [facility]/ZIP Co de Phone Number QUEST [facility] [address] [place] [address] * Imaging Lumbar/Caudal Epidural Steroid INJ ([id number]) (02/14/2025 1:38 PM CDT) Narrative [facility] - 02/14/2025 1:38 PM CDT The images from this study are not interpreted by Radiology. Please refer to the physician's procedure / OR operative note. us Amada Baldwin OFFICE MANAGER RECEPTIONIST IMG PAIN MGMT PROCEDURE S Final Result Performing Organization Address City/[facility]/ZIP Co de Phone Number [facility] * MRI [...] IMG XR PROCEDURES Final Result * XR Chest [...] (01/27/2025 2:03 PM CDT) Blood Narrative SALMA HERCULES - 01/27/2025 2:03 PM CDT Blood draw complete us Lucian Trinidad MD PhD LAB BLOOD ORDERABLE S Final Result [facility] Department [place] [address] * XR Hand Right 3 or More [...] wrists. Electronically signed by: Onel Elias M.D. us Lucian Trinidad MD PhD IMG XR PROCEDURES F inal Result * KATHIE ab eval w/reflex (01/24/2025 9:41 AM CDT) KATHIE ab Negative Negative Comment: Interpretive Data Positive Screens will be reflexed to specific testing for Antibodies against the following antigens: Ashly-1 Ab, FINANCIAL OPERATIONS ANALYST Ab, Scl-70 Ab, Bradshaw Ab, SS-A/Ro Ab, and SS- B/La Ab. Further testing for dsDNA, Centromere, or Ribosomal P antibodies is suggested in patient with a positive screen and negative specific antibodies. Current interpretive data was last revised on 2023. Blood 01/24/2025 9:41 AM CDT 01/24/2025 10:43 AM CDT us Lucian Trinidad MD PhD LAB BLOOD ORDERABLE S Final Result [facility] Department [place] [address] * Anti-Neutrophilic Cytoplasmic Antibody (ANCA) with Reflex to MPO and PR3 Abs (01/24/2025 9:41 AM CDT) ANCA Negative Blood 01/24/2025 9:41 AM CDT 01/24/2025 10:43 AM CDT Lucian Trinidad MD PhD LAB BLOOD ORDERABLE S Final Result Performing Organization Address City/[facility]/ZIP Co de Phone Number SALMA RUIZ [facility] Department [place] [address] * Neuromuscular Testing Blood (01/24/2025 12:00 AM CDT) Blood (Serum) 01/24/2025 01/25/2025 Narrative [facility] - 02/06/2025 4:56 PM CDT Please click on the PDF link to view the report containing this result Lucian Trinidad MD PhD LAB PATHOLOGY ORDER DAVI Final Result Performing Organization Address City/[facility]/ZIP Co de Phone Number [facility] Room [address] [place] [address] * eGFR (01/09/2025 12:30 PM CDT) eGFR [...] CDT Shirley CHUN LAB BLOOD ORDERABLES Flora nile Result [facility] Department [place] [address] * (ABNORMAL) Differential, auto (01/09/2025 12:30 PM CDT) Neutrophil abs 10.98(H) 1.50 - 6.50 K/cumm Imm gran abs 0.13(H) 0.00 - 0.10 K/cumm [facility] Lymphocyte abs 1.66 0.80 - 3.30 K/cumm [facility] Monocyte abs 1.29(H) 0.20 - 0.80 K/cumm [facility] Eosinophil abs 0.05 0.00 - 0.50 K/cumm [facility] Basophil abs 0.06 0.00 - 0.10 K/cumm [facility] Neutrophil pct 77.5 % [facility] Comment: Interpretive Data Percent cell count reference ranges are not reported, since discordance with absolute values may lead to misinterpretation of CBC data. Current Interpretive Data was last revised on 2017. Imm gran pct 0.9 % [facility] Comment: Interpretive Data Percent cell count reference ranges are not reported, since discordance with absolute values may lead to misinterpretation of CBC data. Current Interpretive Data was last revised on 2017. Lymphocyte pct 11.7 % [facility] Comment: Interpretive Data Percent cell count reference ranges are not reported, since discordance with absolute values may lead to misinterpretation of CBC data. Current Interpretive Data was last revised on 2017. Monocyte pct 9.1 % [facility] Comment: Interpretive Data Percent cell count reference ranges are not reported, since discordance with absolute values may lead to misinterpretation of CBC data. Current Interpretive Data was last revised on 2017. Eosinophil pct 0.4 % [facility] Comment: Interpretive Data Percent cell count reference ranges are not reported, since discordance with absolute values may lead to misinterpretation of CBC data. Current Interpretive Data was last revised on 2017. Basophil pct 0.4 % [facility] Comment: Interpretive Data Percent cell count reference ranges are not reported, since discordance with absolute values may lead to misinterpretation of CBC data. Current Interpretive Data was last revised on 2017. Blood 01/09/2025 12:3 0 PM CDT 01/09/2025 1:18 PM CDT us Shirley CHUN LAB BLOOD ORDERABLES Flora dowd Result [facility] Department [place] [address] * (ABNORMAL) CBC with auto differential (01/09/2025 12:30 PM CDT) WBC 14.17(H) 3.80 - 9.90 K/cumm Hgb 12.2 11.9 - 15.5 g/dL [facility] Hct 38.2 35.6 - 45.5 % [facility] Plt 417(H) 150 - 400 K/cumm [facility] MPV 10.2 9.1 - 12.3 fL [facility] RBC 4.21 3.90 - 5.20 M/cumm [facility] MCV 90.7 81.3 - 96.4 fL [facility] MCH 29.0 27.1 - 33.3 pg [facility] MCHC 31.9(L) 32.3 - 35.7 g/dL [facility] RDW CV 16.4(H) 11.1 - 14.9 % [facility] RDW SD 54.8(H) 35.7 - 48.1 fL [facility] NRBC abs 0.00 0.00 - 0.01 K/cumm [facility] Blood 01/09/2025 12:3 0 PM CDT 01/09/2025 1:18 PM CDT Shirley CHUN LAB BLOOD ORDERABLES Flora l Result Performing Organization Address City/[facility]/ZIP Co de Phone Number [facility] Department [place] [address] * Albumin Creatinine Ratio, Urine (01/09/2025 12:30 PM CDT) Albumin Ur 37.8 mg/L Comment: Interpretive Data No reference range established. Current interpretive data was last revised 2018. Creatinine Ur 353.8 mg/dL [facility] Comment: Interpretive Data No reference range established. Current interpretive data was last revised 2018. Albumin Creatinine Ratio, Ur 11 1 - 29 mg/g [facility] Urine 01/09/2025 12:3 0 PM CDT 01/09/2025 1:18 PM CDT Shirley CHUN LAB URINE ORDERABLES Flora l Result Performing Organization Address City/[facility]/ZIP Co de Phone Number [facility] Department [place] [address] * Vitamin D 25 hydroxy (01/09/2025 12:30 PM CDT) Vitamin D 25-OH 38 30 - 80 ng/mL Blood 01/09/2025 12:3 0 PM CDT 01/09/2025 1:18 PM CDT Shirley CHUN LAB BLOOD ORDERABLES Flora l Result [facility] [place] [address] * TSH (01/09/2025 12:30 PM CDT) Thyroid Stimulating Hormone 1.92 0.30 - 4.20 mcIUnit/mL Blood 01/09/2025 12:3 0 PM CDT 01/09/2025 1:18 PM CDT Shirley CHUN LAB BLOOD ORDERABLES Flora l Result Performing Organization Address [facility] de Phone Number [facility] Department [place] [address] * Ferritin (01/09/2025 12:30 PM CDT) Pathologist [facility] Ferritin 42 13 - 150 ng/mL Blood 01/09/2025 12:3 0 PM CDT 01/09/2025 1:18 PM CDT Result [facility] Iqra Jensen MD LAB BLOOD ORDERABLES Final Resul t Performing Organization Address [facility] de Phone Number [facility] Department [place] [address] * Vitamin B12 (01/09/2025 12:30 PM CDT) Pathologist [facility] Vitamin B12 415 230 - 1,250 pg/mL Blood 01/09/2025 12:3 0 PM CDT 01/09/2025 1:18 PM CDT Result [facility] Shirley CHUN LAB BLOOD ORDERABLES Flora l Result Performing Organization Address [facility] de Phone Number [facility] [place] [address] * (ABNORMAL) Lipid panel (01/09/2025 12:30 PM CDT) Pathologist [facility] Cholesterol 260(H) 30 - 199 mg/dL Comment: [...] revised on 2018. Triglycerides 334(H) <=149 mg/dL [facility] Comment: Interpretive Data Ages < or [...] revised on 2018. HDL 75 >=40 mg/dL [facility] Comment: Interpretive Data Ages < or [...] on 2018. LDL, calculated 127 <=129 mg/dL [facility] Comment: Interpretive Data Ages < or = 19 years Acceptable: <110 mg/dL Borderline high: 110-129 mg/dL High: >or= 130 mg/dL Ages > or = 20 years Optimal: <100 mg/dL Near optimal: 100-129 mg/dL Borderline high: 130-159 mg/dL High: >160 mg/dL Calculated using the Urbano LDL-C estimating equation. This equation was implemented on 2024. Prior to this date LDL-C was estimated using the Friedewald equation. Literature References: 1. Expert Panel on Integrated Guidelines for Cardiovascular Health and Risk Reduction in Children and Adolescents. Pediatrics 2011;128:S213 2. NCEP Expert Panel. Circulation 2004;110:227 3. Sundeep M et al. PHILIP Cardiol. 2020 December 01;5(5):540-548. doi: 10.1001/jamacardio.2020.0013 Current Interpretive Data was last revised on 2024. Non-HDL Cholesterol 185 mg/dL [facility] Comment: Interpretive Data Ages < or [...] last revised on 2018. Chol/HDL ratio 3 [facility] Blood 01/09/2025 12:3 0 PM CDT 01/09/2025 1:18 PM CDT Shirley CHUN LAB BLOOD ORDERABLES Flora dowd Result [facility] Department [place] [address] * (ABNORMAL) Comprehensive metabolic panel (01/09/2025 12:30 PM CDT) Sodium 139 135 - 145 mmol/L Potassium, pl 4.4 3.3 - 4.9 mmol/L [facility] Chloride 99 97 - 110 mmol/L [facility] CO2 27 22 - 32 mmol/L [facility] Anion gap 13 2 - 15 mmol/L [facility] BUN 22 6 - 25 mg/dL [facility] Creatinine 0.74 0.60 - 1.10 mg/dL [facility] Glucose 314(H) 70 - 199 mg/dL [facility] Comment: Interpretive Data Fasting glucose >/= 126 [...] Calcium 9.2 8.5 - 10.3 mg/dL [facility] Bilirubin, total 0.3 0.1 - 1.2 mg/dL [facility] Protein, pl 6.7 6.5 - 8.5 g/dL [facility] Albumin 4.0 3.5 - 5.0 g/dL [facility] Alk phos 54 40 - 130 Units/L [facility] ALT 69(H) 7 - 45 Units/L [facility] AST 25 10 - 45 Units/L [facility] Blood 01/09/2025 12:3 0 PM CDT 01/09/2025 1:18 PM CDT Shirley CHUN LAB BLOOD ORDERABLES Flora nile Result [facility] Department [place] [address] * Screening Mammogram Bilateral W Vincenzo (01/09/2025 [...] AM CDT Narrative 12/23/2024 9:46 AM CDT [address] [address] Echocardiogram Report Patient Name: WALT HUITRON : 1975 Study Date: 12/23/2024 7:09:04 AM Gender: F Tech: OFFICE MANAGER RECEPTIONIST Location: Echo Lab 1 Ref Provider: CANELO [...] Procedure Note German Weathers MD - 12/23/[address] [address] Echocardiogram Report Patient Name: WALT HUITRON : 1975 Study Date: 12/23/2024 7:09:04 AM Gender: F Tech: OFFICE MANAGER RECEPTIONIST Location: Echo Lab 1 Ref Provider: CANELO [...] MD 12/23/2024 9:45:42 AM CDT us Canelo Doan DO CV ECHO PROCEDURES Final Result * CT Body Outside Reference (12/14/2024 10:10 AM CDT) Narrative [facility] - 01/02/2025 11:11 AM CDT This order has been auto-finalized and does not contain a result. us Not In File Miscellaneous IMG CT PROCEDURES Flora nile Result [facility] * Diabetic Eye Exam (11/10/2022) us Generic External Data Provider [facility] Final Result * COLONOSCOPY (04/02/2022 9:28 AM CDT) Anatomical Region Laterality Modality Other Narrative Procedure Note Ad Camacho MD - 04/02/2022 9:28 AM CDT [facility] Patient Name: Walt Huitron Procedure Date: 04/02/2022 9:28 AM Date of : 1975 Admit Type: Outpatient Age: 46 Gender: Female Attending MD: Ad Camacho M.D. Room: [facility] ENDOSCOPY ROOM 2 Note Status: Finalized Patient [...] scope was passed under direct vision. TheColonoscope [id number] was introduced through the anus and advanced [...] 9:28 AM Procedure Code(s): --- Professional --- 19291, Colonoscopy, flexible; with biopsy, single or multiple Diagnosis Code(s): --- Professional --- Z12.11, Encounter for screening for malignant neoplasm of colon D12.3, Benign neoplasm of transverse colon (hepatic flexure orsplenic flexure) D12.4, Benign neoplasm of descending colon D12.8, Benign neoplasm of rectum CPT copyright 2020 [employer]. All rights reserved. The codes documented in this report are preliminary and upon asbestos abatement worker reviewmay be revised to meet current compliance requirements. Recognized by the [place] [employer] for promoting quality in endoscopy Ad Camacho MD ENDOSCOPY PROCEDURES Final Resul t * Diabetic Foot Exam (03/26/2021) Impressions Art Staley MA - 03/26/2021 In care everywhere Historical Provider HEALTH MAINTENANCE Final Result from Last 3 Months or Most Recently Relevant to Health Maintenance Insurance [facility] Advance Directives For more information, please contact: [phone] * Full Code (Latest Code Status on File) Date Activated Date Inactivated Comments 04/02/2022 9:27 AM 04/02/2022 4:47 PM * Full Code Date Activated Date Inactivated Comments 04/02/2022 9:27 AM 04/02/2022 9:27 AM Care Teams Mass Communications Professor Relationship Specialty [place] [address] [address] PCP - General Internal Medicine 04/06/24 Ann Serrano MD Referring Physician Endocrinology Diabetes & Metabolism 06/08/20
--- OUTSIDE RECORDS SUMMARY | 2025-02-27 10:45 | XMS_ITS | Clinical Summary ---
Author Organization [facility] Address [address] [place] [address] Care Team Providers Care Hospice Fellow Name Role Phone Kishor Saleh MD Primary Care Provider [phone] Source Comments [facility],non-owned Affiliates and Associated Physician Practices is amultiple site organization consisting of ambulatory clinics and hospital sitesin [place], [place], [place] and [place]. This disclosure is being madepursuant to the Care Everywhere program and may not contain all information available regarding this patient. Last updated 18.[facility] Allergies Active Allergy Reactions Criticality Noted Date [...] fluticasone propionate (Flonase) 50 MCG/ACT nasal spray [place] 2 (two) sprays into each nostril once [...] vitamin D, ergocalciferol , (Drisdol) 1.25 MG (44804 UT) capsule Take 1 (one) capsule by [...] any time in the past 12 m [facility], were you homeless or living in a jail (including now)? No 08/15/2024 Comments Unknown Sex and Gender Information Value Date Recorded Sex Assigned at Not on file Legal Sex Female 4:50 AM CAPSULE MACHINE OPERATOR Gender Identity Not on file Sexual Orientation Not on file Last Filed Vital Signs Vital Sign Reading Time Taken Comments Blood Pressure 154/92 08/18/2024 12:25 PM CAPSULE MACHINE OPERATOR Pulse 102 08/18/2024 12:25 PM CAPSULE MACHINE OPERATOR Temperature 36.7 C (98.1 F) 08/18/2024 12:25 PM CAPSULE MACHINE OPERATOR Respiratory Rate 23 08/18/2024 12:2 5 PM CAPSULE MACHINE OPERATOR Oxygen Saturation 90% 08/18/2024 12: 25 PM CAPSULE MACHINE OPERATOR Inhaled Oxygen Concentration 21% 08/18/2024 2 :00 PM CAPSULE MACHINE OPERATOR Weight 132.6 kg (292 lb 4.8 oz) 08/18/2024 4:00 AM CAPSULE MACHINE OPERATOR Height 167.6 cm (5' 6) 08/13/2024 5:14 PM CAPSULE MACHINE OPERATOR Body Mass Index 47.18 08/13/2024 5:14 PM CAPSULE MACHINE OPERATOR Plan of Treatment Health Maintenance Due [...] (CALCIUM TOTAL) AM Draw 08/17/2024 4:16 AM CAPSULE MACHINE OPERATOR HEMOGLOBIN A1C Routine 08/14/2024 3:27 AM CAPSULE MACHINE OPERATOR from Last 3 Months or Most Recently Relevant to Health Maintenance Results * (ABNORMAL) BASIC METABOLIC PANEL (CALCIUM TOTAL) (08/17/2024 4:16 AM CAPSULE MACHINE OPERATOR) Glucose 139(H) 70 - 99 mg/dL 08/17/2024 4:53 AM CAPSULE MACHINE OPERATOR [facility] Sodium 140 136 - 145 mmol/L 08/17/2024 4:53 AM CAPSULE MACHINE OPERATOR [facility] Potassium 3.5 3.5 - 5.1 mmol/L 08/17/2024 4:53 AM CAPSULE MACHINE OPERATOR [facility] Chloride 108(H) 98 - 107 mmol/L 08/17/2024 4:53 AM CAPSULE MACHINE OPERATOR [facility] CO2 24 22 - 29 mmol/L 08/17/2024 4:53 AM CAPSULE MACHINE OPERATOR [facility] Calcium 8.9 8.4 - 10.4 mg/dL 08/17/2024 4:53 AM [facility] Anion Gap 8 6 - 16 mmol/L 08/17/2024 4:53 AM [facility] BUN 15 5.3 - 18.7 mg/dL 08/17/2024 4:53 AM [facility] Creatinine 0.65 0.57 - 1.11 mg/dL 08/17/2024 4:53 AM [facility] eGFR by CKD-EPI >90 >=90 mL/min/1.7 3 m2 08/17/2024 4:53 AM [facility] Blood BLOOD SPECIMEN / Unknown Venipuncture / Unknown 08/17/2024 4:16 AM CAPSULE MACHINE OPERATOR 08/17/2024 4:30 AM [facility] Alexus Ramirez MD LAB - CHEMISTRY ORDERABLES Final Result [facility] [address] [place] [address] * (ABNORMAL) HEMOGLOBIN A1C (08/14/2024 3:27 AM [facility]) Hemoglobin A1c 10.1(H) <5.7 % 08/14/2024 3:48 AM [facility] Estimated Average Glucose 243 mg/dL 08/14/2024 3:48 AM [facility] Blood BLOOD SPECIMEN / Unknown Venipuncture / Unknown 08/14/2024 3:27 AM CAPSULE MACHINE OPERATOR 08/14/2024 3:37 AM [facility] Narrative [facility] - 08/14/2024 3:48 AM [facility] HbA1c Interpretation: Normal: < 5.7% Pre-diabetes: [...] Result [facility] [address] [place] [address] from Last 3 Months or Most Recently Relevant to Health Maintenance Insurance [facility] Advance Directives * Full Code (Latest Code Status on File) Date Activated Date Inactivated Comments 08/13/2024 3:54 PM 08/18/2024 6:24 PM Care Teams Hospice Fellow Relationship Specialty Start Date End Date Kishor Saleh MD 2 [facility] [address] [address] PCP - General Internal Medicine 07/31/23
--- OUTSIDE RECORDS SUMMARY | 2025-02-27 10:45 | XMS_ITS | Encounter Summary ---
Author Organization [facility] Address [address] [place] [address] Care Team Providers Care Sweat Band Separator Name Role Phone Tiffany Cox MD Primary Care Provider Unavailable Kishor Saleh MD Primary Care Provider Encounter Details Date Type Department Care Team (Late st Contact Info) Description 07/03/2023 Lab Requisition [facility] - DermPath Lab [address] [place] [address] [place] [address] [address] Social History Tobacco Use Types Packs/Day Years Used Date Smoking Tobacco: Never Assessed Comments Unknown Sex and Gender Information Value Date Recorded Sex Assigned at Not on file Legal Sex Female 4:50 AM MACHINE BANDER AND CELLOPHANER HELPER Gender Identity Not on file Sexual Orientation Not on file documented as of this encounter Plan of Treatment Not on file documented as of this encounter Procedures Procedure Name Priority Date/Time Associated Diagnosis Comments IMMUNOFLUORESCENT STUDY DERM Routine 07/01/2023 3:33 AM MACHINE BANDER AND CELLOPHANER HELPER documented in this encounter Results * IMMUNOFLUORESCENT STUDY DERM (07/01/2023 3:33 AM MACHINE BANDER AND CELLOPHANER HELPER) Case Report Dermatopathol ogy Report Case: [id number] Authorizing Provider: Kendrick Christopher MD Collected: 07/01/2023 03:33 AM Ordering Location: [facility] Received: 07/03/2023 12:13 PM Pathologist: Bella Schwab MD Specimen: Skin, right superior han 3:46 PM [facility] DERMATOPATHOLOGY [facility]OR[facility] Final Diagnosis Specimen A. SKIN, right superior han: COLLOID BODIES (L98.9) (see microscopic description) (see fixed tissue results) 3 3:46 PM [facility] DERMATOPATHOLOGY LABORATORY at 1546 MACHINE BANDER AND CELLOPHANER HELPER Direct Immunofluorescence Report - Specimen A Specimen A IgA IgM IgG C3 CollV Fibrinogen Epidermis Negative Negative Negative Negative Negative Negative Basement Membrane Negative Negative Negative Negative 2+ Negative Vessels Negative Negative Negative Negative 2+ Negative Interstitium Colloid Colloid Colloid Negative Negative Non specific 3 3:46 PM [facility] DERMATOPATHOLOGY [facility]OR[facility] Clinical History Rash; R/O Leukocytoclas tic Vasculitis, Livedo Reticularis 3 3:46 PM [facility] DERMATOPATHOLOGY [facility]OR[facility] Gross Description Specimen A: Received is one Jatinder's media filled container labeled with the patient's name and designated right superior han. The specimen consists of a punch biopsy measuring 5x4x4 mm. The specimen is submitted in whole for direct immunofluores cence testing. 3:46 PM [facility] DERMATOPATH[facility] Microscopic Description Specimen A. [...] See fixed tissue results. 3 3:46 PM [facility] DERMATOPATHOLOGY [facility] Disclaimer An external and internal positive and negative controls are appropriate for the histochemical , immunohistoch emical and immunofluores cence stain(s) in this case (if any), except where stated explicitly. The performance characteristi cs of the stain(s) cited in this report were developed and its performance characteristi c determined by the Dermatopathol ogy Laboratory at [facility], directed by Dr. Arnol Perea. These tests need not be, and therefore are not, approved by the [place] Food and Drug Administratio n. The tests are used for clinical purposes. Billing Codes Specimen Charges Stain Charges 72854 66833 45350 88228 54987 86420 1 1 1 1 1 1 3 3:46 PM MACHINE BANDER AND CELLOPHANER HELPER DERMATOPATHOLOGY LABORATORY Embedded Images 3 3:46 PM MACHINE BANDER AND CELLOPHANER HELPER DERMATOPATHOLOGY LABORATORY Pathology/Cytolo gy TISSUE SPECIMEN FROM SKIN / Unknown 07/01/2023 3:33 AM MACHINE BANDER AND CELLOPHANER HELPER 07/03/2023 12:13 PM MACHINE BANDER AND CELLOPHANER HELPER Kendrick Christopher MD LAB - PATHOLOGY/CYTOLOGY O RDERABLES Final Result DERMATOPATHOLOGY LABORATORY [facility] - Department of Dermatology [facility] Medicine [address] [place] [address], [address] [phone] documented in this encounter Visit Diagnoses Not on filedocumented in this encounter Additional Health Concerns Infection Onset Date Last Indicated Resolved Time COVID-19 Under Investigation 08/13/2024 08/13/2024 08/13/2024 11:30 PM MACHINE BANDER AND CELLOPHANER HELPER documented as of this encounter Care Teams Sweat Band Separator Relationship Specialty Start Date End Date Tiffany Cox MD PCP - General Internal Medicine 05/16/13 07/30/23 Kishor Saleh MD [address] [place] [address] [address] [place] [address] PCP - General Internal Medicine 07/31/23 documented as of this encounter
--- OUTSIDE RECORDS SUMMARY | 2025-02-27 10:45 | XMS_ITS | Encounter Summary ---
Author Organization [facility] Address [address] [facility] [place] [address] Care Team Providers Care Air Support Control Officer Name Role Phone Tiffany Cox MD Primary Care Provider Unavailable Kishor Saleh MD Primary Care Provider [phone] Encounter Details Date Type Department Care Team (Late st Contact Info) Description 07/03/2023 Lab Requisition [facility] - Derm[facility] Lab [address] [place] [phone] [place] [address] [facility] [address] [place] [address] Social History Tobacco Use Types Packs/Day Years Used Date Smoking Tobacco: Never Assessed Comments Unknown Sex and Gender Information Value Date Recorded Sex Assigned at Not on file Legal Sex Female 4:50 AM FURNITURE ASSEMBLER Gender Identity Not on file Sexual Orientation Not on file documented as of this encounter Plan of Treatment Not on file documented as of this encounter Visit Diagnoses Not on filedocumented in this encounter Additional Health Concerns Infection Onset Date Last Indicated Resolved Time COVID-19 Under Investigation 08/13/2024 08/13/2024 08/13/2024 11:30 PM FURNITURE ASSEMBLER documented as of this encounter Care Teams Air Support Control Officer Relationship Specialty Start Date End Date Tiffany Cox MD PCP - General Internal Medicine 05/16/13 07/30/23 Kishor Saleh MD [address] [place] [address] [address] [place] [id number] PCP - General Internal Medicine 07/31/23 documented as of this encounter
--- OUTSIDE RECORDS SUMMARY | 2025-02-27 10:45 | XMS_ITS | Encounter Summary ---
Author Organization [facility] Address [address] [place] [address] Phone Care Team Providers Care Trench Digger Helper Name Role Phone Ann Serrano MD Unavailable [phone] Lynn Rodrigeuz MD Primary Care Provider Encounter Details Date Type Department Care Team (Late st Contact Info) Description 01/09/2025 Results Follow[facility] Endocrinology Metabolism and Lipid [address] [facility] Advanced [facility] 13th [place] [address] [place] [phone] Shirley Teixeira PA [address] [place] [address] Vitamin D 25 hydroxy, Vitamin B12, TSH, [...] on file Legal Sex Female 11:54 PM PHYSIOGNOMIST Gender Identity Female 09/19/2020 8:37 AM PHYSIOGNOMIST Sexual Orientation Straight 09/19/2020 8: 37 AM PHYSIOGNOMIST documented as of this encounter Ordered Prescriptions [...] Description 04/27/2025 7:30 AM CDT Hospital Encounter [address] [address]Ad Garcia MD [address] [place] [address] [address] [place] [address] 04/27/2025 7:30 AM CDT - 04/27/2025 8:00 AM CDT Surgery [address] [address]Ad Garcia MD [address] [place] [address] [address] [place] [address] ESOPHAGOGASTRODUODENOSCOPY Scheduled Orders Name Type Priority Associated Diagnoses Orde r Schedule Hepatic function panel Lab Routine Elevated liver function tests Expected: 01/12/2025, Expires: 01/09/2026 Scheduled Procedures Name Priority Associated Diagnoses Date/Ti il ESOPHAGOGASTRODUODENOSCOPY Dysphagia, unspecified type 04/27/2025 7:30 AM [...] documented as of this encounter Care Teams Trench Digger Helper Relationship Specialty [place] [address] [facility] [address] [address] PCP - General Internal Medicine 04/06/24 Ann Serrano MD Referring Physician Endocrinology Diabetes & Metabolism 06/08/20 documented as of this encounter
--- OUTSIDE RECORDS SUMMARY | 2025-02-27 10:45 | XMS_ITS | Encounter Summary ---
Author Organization [facility] Address [address] [place] [address] Care Team Providers Care Communications Technician Name Role Phone Tiffany Cox MD Primary Care Provider Unavailable Kishor Saleh MD Primary Care Provider Encounter Details Date Type Department Care Team (Late st Contact Info) Description 07/03/[address] [facility] - [facility] Lab [address] [place] [address] [place] [address] [address] Social History Tobacco Use Types Packs/Day Years Used Date Smoking Tobacco: Never Assessed Comments Unknown Sex and Gender Information Value Date Recorded Sex Assigned at Not on file Legal Sex Female 4:50 AM CORPORATE LAW ASSISTANT Gender Identity Not on file Sexual Orientation Not on file documented as of this encounter Plan of Treatment Not on file documented as of this encounter Procedures Procedure Name Priority Date/Time Associated Diagnosis Comments DERMATOPATHOLOGY Routine 07/01/2023 3:33 AM CORPORATE LAW ASSISTANT documented in this encounter Results * DERMATOPATHOLOGY (07/01/2023 3:33 AM CORPORATE LAW ASSISTANT) Case Report Dermatopathology Report Case: [id number] Authorizing Provider: Kendrick Christopher MD Collected: 07/01/2023 03:33 AM Ordering Location: [facility] Received: 07/03/2023 12:12 PM Pathologist: Bella Schwab MD Specimen: Skin, right inferior knee 3:45 PM [facility] DERMATOPATHOLOGY [facility]ORATORY Final Diagnosis Specimen A. SKIN, right inferior knee: STASIS DERMATITIS (L30.8) DERMAL FIBROSIS (L90.5) (see microscopic description) 3 3:45 PM [facility] DERMATOPATHOLOGY LABORATORY at [address] CORPORATE LAW ASSISTANT Clinical History Rash; R/O Leukocytoclastic Vasculitis, Livedo Reticularis 3 3:45 PM [facility] DERMATOPATHOLOGY [facility]ORAT[facility] Gross Description Specimen A: Received is one formalin filled container labeled with the patient's name and designated right inferior knee. The specimen consists of a punch biopsy measuring 6x5x6 mm. Jar 0. 3:45 PM [facility] DERMATOPATHOLOGY [facility]ATORY Microscopic Description Specimen [...] sections were obtained and reviewed. 3:45 PM [facility] DERMATOPATH[facility]Y [facility]ORATORY Disclaimer An external and internal positive and negative controls are appropriate for the histochemical, immunohistochemical and immunofluorescence stain(s) in this case (if any), except where stated explicitly. The performance characteristics of the stain(s) cited in this report were developed and its performance characteristic determined by the Dermatopathology Laboratory at [facility], directed by Dr. Arnol Perea. These tests need not be, and therefore are not, approved by the [place] Food and Drug Administration. The tests are used for clinical purposes. Billing Codes Specimen Charges Stain Charges 63005 1 50790 1 3 3:45 PM [facility] DERMATOPATHOLOGY LABORATORY Embedded Images 3 3:45 PM [facility] DERMATOPATH[facility]Y [facility]ATORY Pathology/Cytolo gy TISSUE SPECIMEN FROM SKIN / Unknown 07/01/2023 3:33 AM CORPORATE LAW ASSISTANT 07/03/2023 12:12 PM CORPORATE LAW ASSISTANT Kendrick Christopher MD LAB - PATHOLOGY/CYTOLOGY O RDERABLES Final Result DERMATOPATHOLOGY LABORATORY [facility] - Department of Dermatology [facility] Medicine [address] [place] [address], [address] [phone] documented in this encounter Visit Diagnoses Not on filedocumented in this encounter Additional Health Concerns Infection Onset Date Last Indicated Resolved Time COVID-19 Under Investigation 08/13/2024 08/13/2024 08/13/2024 11:30 PM CORPORATE LAW ASSISTANT documented as of this encounter Care Teams Communications Technician Relationship Specialty Start Date End Date Tiffany Cox MD PCP - General Internal Medicine 05/16/13 07/30/23 Kishor Saleh MD [address] [place] [address] [address] [place] [id number] PCP - General Internal Medicine 07/31/23 documented as of this encounter
--- OUTSIDE RECORDS SUMMARY | 2025-02-27 10:45 | XMS_ITS | Encounter Summary ---
Author Organization [facility] Address [address] [place] [address] Care Team Providers Care Station Repairer Name Role Phone Tiffany Cox MD Primary Care Provider Unavailable Kishor Saleh MD Primary Care Provider Encounter Details Date Type Department Care Team (Late st Contact Info) Description 07/03/2023 Lab Requisition [facility] - [facility]erm[facility] Lab [address] [place] [phone] [place] [address] [facility] [address] [place] [address] Social History Tobacco Use Types Packs/Day Years Used Date Smoking Tobacco: Never Assessed Comments Unknown Sex and Gender Information Value Date Recorded Sex Assigned at Not on file Legal Sex Female 4:50 AM GAME ROOM ATTENDANT Gender Identity Not on file Sexual Orientation Not on file documented as of this encounter Plan of Treatment Not on file documented as of this encounter Visit Diagnoses Not on filedocumented in this encounter Additional Health Concerns Infection Onset Date Last Indicated Resolved Time COVID-19 Under Investigation 08/13/2024 08/13/2024 08/13/2024 11:30 PM GAME ROOM ATTENDANT documented as of this encounter Care Teams Station Repairer Relationship Specialty Start Date End Date Tiffany Cox MD PCP - General Internal Medicine 05/16/13 07/30/23 Kishor Saleh MD [address] [place] [address] [address] [place] [id number] PCP - General Internal Medicine 07/31/23 documented as of this encounter
--- OUTSIDE RECORDS SUMMARY | 2025-02-27 10:45 | XMS_ITS | Encounter Summary ---
Author Organization [facility] Address [address] [place] [address] Care Team Providers Care Division Plant Engineer Name Role Phone Tiffany Cox MD Primary Care Provider Unavailable Kishor Saleh MD Primary Care Provider Encounter Details Date Type Department Care Team (Late st Contact Info) Description 07/03/2023 Lab Requisition [facility] Lab [address] [place] [phone] [place] [address] [facility] [address] [place] [address] Social History Tobacco Use Types Packs/Day Years Used Date Smoking Tobacco: Never Assessed Comments Unknown Sex and Gender Information Value Date Recorded Sex Assigned at Not on file Legal Sex Female 4:50 AM BACKWINDER Gender Identity Not on file Sexual Orientation Not on file documented as of this encounter Plan of Treatment Not on file documented as of this encounter Visit Diagnoses Not on filedocumented in this encounter Additional Health Concerns Infection Onset Date Last Indicated Resolved Time COVID-19 Under Investigation 08/13/2024 08/13/2024 08/13/2024 11:30 PM BACKWINDER documented as of this encounter Care Teams Division Plant Engineer Relationship Specialty Start Date End Date Tiffany Cox MD PCP - General Internal Medicine 05/16/13 07/30/23 Kishor Saleh MD [address] [place] [address] [address] [place] [id number] PCP - General Internal Medicine 07/31/23 documented as of this encounter
--- OUTSIDE RECORDS SUMMARY | 2025-02-27 10:45 | XMS_ITS | Clinical Summary ---
Author Organization [facility] Building A Address [address] [place] [address] Care Team Providers Care Clothespin Machine Operator Name Role Phone Ann Serrano MD Unavailable [phone] Lynn Rodriguez MD Primary Care Provider Allergies [...] each 3 07/13/20 24 Active blood-glucose sensor ([employer] G7 Sensor) deviceIndications :Uncontrolled type 2 diabetes mellitus with hyperglycemia (HCC),FDC (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) Use for [...] area for up to 12 hrs 12/09/19 Active famotidine (PEPCID) 20 mg tablet Take 1 tablet (20 mg total) by mouth daily 12/20/19 25 Active dicyclomine (BENTYL) 20 mg tablet Take 1 tablet (20 mg total) by mouth 3 (three) times a day as needed 12/20/19 Active LYUMJEV 100 unit/mL pen for injectionIndicati ons:Uncontrolled type 2 diabetes mellitus with hyperglycemia (HCC) INJECT SUBCUTANEOUSLY 10 UNITS BEFORE MEALS PLUS SLIDING SCALE 1 UNIT FOR EVERY 25 POINTS >150; MAXIMUM DAILY DOSE: 55 UNITS 60 mL 3 01/05/20 25 Active albuterol 2.5 mg /3 mL (0.083 %) nebulizer solution USE 1 VIAL VIA NEBULIZER EVERY 6 HOURS NEEDED FOR WHEEZING (ENTERTAINER OR VARIETY ARTIST RECOMMENDS NOT EXCEEDING 4 VIALS/DAY) 600 mL [...] total) by mouth daily 90 tablet 3 01/10/20 25 026 Active atorvastatin (LIPITOR) 40 mg tabletIndications :Uncontrolled type 2 diabetes mellitus with hyperglycemia (HCC),Mixed hyperlipidemia Take 1 tablet (40 mg total) by mouth daily 90 tablet 3 01/10/20 25 026 Active buprenorphine (Belbuca) 150 [...] SUBCUTANEOUSLY 40 UNITS TWICE DAILY 75 mL 01/27/20 25 Active sulfamethoxazole- trimethoprim (BACTRIM DS) [...] exertion Follow up pulmonary Impaired mobility 07/29/2024 rn long term care (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 07/13/2024 FDC 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 user 07/13/2024 Assessment & Plan (07/13/2024 12:22 PM INSIDE SALES LEAD): - Further complicates diabetes management Has immunity to COVID-19 virus 06/21/2021 Overview (06/30/2022): Pito vaccine 10/05/2020, Moderna booster and Pfizer bivalent booster Assessment & Plan (06/24/2021 3:28 PM INSIDE SALES LEAD): Pito vaccine 10/05/2020 and Moderna booster Jun 2021 Major depressive disorder 04/22/2021 Assessment & Plan (01/06/2024 9:09 AM CDT): Stable on current medication regimen. Assessment & Plan (01/17/2022 10:21 AM CDT): Stable on current medication regimen. Assessment & Plan (07/17/2021 2:07 PM INSIDE SALES LEAD): Better controlled on venlafaxine. Assessment & Plan (04/22/2021 8:25 AM CDT): Restart venlafaxine and warned of side effects and call back if any develop or if no improvement. 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 Unfortunately lab work and skin biopsy inconclusive. Discussed possible rheumatology 2nd opinion here at [facility] and patient will call back if desired. Assessment & Plan (06/15/2023 10:48 AM INSIDE SALES LEAD): Certainly making a case for underlying vasculitis [...] condition. Assessment & Plan (06/20/2020 9:35 AM INSIDE SALES LEAD): Unclear etiology but I am thinking of [...] tolerated Assessment & Plan (08/26/2024 6:10 PM INSIDE SALES LEAD): Body mass index is 49.1 kg/m . BMI Follow-up includes: nutrition counseling, exercise counseling, and education provided. Assessment & Plan (07/13/2024 12:20 PM INSIDE SALES LEAD): - Increase Mounjaro to 10 mg weekly [...] tolerated. Assessment & Plan (06/08/2023 5:23 PM INSIDE SALES LEAD): Patient is encouraged to lose weight with a combination of caloric reduction and increased exercise. Various strategies discussed. The long-term risks associated with continued morbid obesity discussed. Assessment & Plan (09/04/2022 2:34 PM INSIDE SALES LEAD): Patient is encouraged to lose weight with a combination of caloric reduction and increased exercise. Various strategies discussed. The long-term risks associated with continued morbid obesity discussed. Assessment & Plan (08/02/2022 12:16 PM INSIDE SALES LEAD): Patient is encouraged to lose weight with [...] discussed. Assessment & Plan (07/13/2020 8:34 AM INSIDE SALES LEAD): Patient is encouraged to lose weight with a combination of caloric reduction and increased exercise. Various strategies discussed. The long-term risks associated with continued morbid obesity discussed. Assessment & Plan (06/20/2020 9:35 AM INSIDE SALES LEAD): Patient is encouraged to lose weight with a combination of caloric reduction and increased exercise. Various strategies discussed. The long-term risks associated with continued morbid obesity discussed. Assessment & Plan (07/08/2019 8:44 AM INSIDE SALES LEAD): Patient is encouraged to lose weight with a combination of caloric reduction and increased exercise. Various strategies discussed. The long-term risks associated with continued morbid obesity discussed. Irregular menses 06/03/2019 Allergic rhinitis 07/05/2018 Assessment & Plan (02/23/2023 1:30 PM CDT): Nasal saline spray (Simply saline, [employer]edies, [place], [place]) 2 second sprays or 2 squeezes into [...] daily Assessment & Plan (07/17/2021 2:07 PM INSIDE SALES LEAD): Claritin montelukast. Assessment & Plan (04/22/2021 8:25 AM CDT): Currently using Claritin and montelukast. She has not been trying Flonase as her nose is being to congested. Recommended sinus rinses her using a hot warm shower. Could also try Afrin for few days. Assessment & Plan (07/08/2019 8:43 AM INSIDE SALES LEAD): Add montelukast to her Claritin. She struggles with nasal sprays due to chronic congestion. Assessment & Plan (07/05/2018 9:24 AM INSIDE SALES LEAD): Try Afrin for 3 days along with [...] mg/dL Assessment & Plan (07/13/2024 12:21 PM INSIDE SALES LEAD): - Last LDL 103, TG 308, TC [...] triglycerides. Assessment & Plan (09/12/2023 8:12 PM INSIDE SALES LEAD): Continue statin and optimize glycemic control Assessment & Plan (02/16/2023 8:14 PM CDT): Continue statin and optimize glycemic control Assessment & Plan (01/21/2023 9:50 AM CDT): Continue her atorvastatin and work on diet exercise and check lipids and LFTs before next visit. Assessment & Plan (08/02/2022 12:15 PM INSIDE SALES LEAD): Well controlled on current therapy and will check a lipid panel and LFTs in 6 months. Assessment & Plan (01/17/2022 10:21 AM CDT): Well controlled on current therapy and will check a lipid panel and LFTs in 6 months. Assessment & Plan (07/17/2021 2:06 PM INSIDE SALES LEAD): Well controlled on current therapy and will check a lipid panel and LFTs in 6 months. Assessment & Plan (06/24/2021 3:28 PM INSIDE SALES LEAD): Continue statin and optimize glycemic control Assessment & Plan (12/19/2020 7:53 AM CDT): Continue statin and optimize glycemic control Assessment & Plan (07/13/2020 8:34 AM INSIDE SALES LEAD): Well controlled on current therapy and will check a lipid panel and LFTs in 6 months. Assessment & Plan (06/08/2020 8:31 AM INSIDE SALES LEAD): LDL within goal. Continue statin and optimize glycemic control Assessment & Plan (07/08/2019 8:42 AM INSIDE SALES LEAD): Well controlled on current therapy and will check a lipid panel and LFTs in 12 months. Assessment & Plan (09/01/2018 2:22 PM INSIDE SALES LEAD): Continue statin, optimize glycemic control Assessment & Plan (07/05/2018 9:23 AM INSIDE SALES LEAD): Well controlled on current therapy and will check a lipid panel and LFTs in 6 months. Assessment & Plan (08/26/2017 4:27 PM INSIDE SALES LEAD): Start atorvastatin and check lipids and LFTs in 3-4 months. Call back for results. Vitamin D deficiency 07/02/2017 Assessment & Plan (07/13/2024 12:22 PM INSIDE SALES LEAD): - Last Vitamin D 42 (12/2023), replete [...] week Assessment & Plan (09/12/2023 8:12 PM INSIDE SALES LEAD): Continue long-term supplement Assessment & Plan (02/16/2023 8:14 PM CDT): Continue long-term supplement Assessment & Plan (08/02/2022 12:15 PM INSIDE SALES LEAD): Continue current supplementation and check level in 1 year. Assessment & Plan (07/17/2021 2:06 PM INSIDE SALES LEAD): Continue current supplementation and check level in 1 year. Assessment & Plan (06/24/2021 3:29 PM INSIDE SALES LEAD): Continue long-term supplement Assessment & Plan (12/19/2020 7:53 AM CDT): Continue long-term supplement Assessment & Plan (07/13/2020 8:33 AM INSIDE SALES LEAD): Continue current supplementation and check level in 1 year. Assessment & Plan (06/08/2020 8:31 AM INSIDE SALES LEAD): Vitamin-D level within goal, continue chronic supplement Assessment & Plan (07/08/2019 8:42 AM INSIDE SALES LEAD): Continue current supplementation and check level in 1 year. Assessment & Plan (06/03/2019 8:24 AM CDT): Recently ran out of supplement, so we will restart and check her level today. Also check B12 Assessment & Plan (09/01/2018 2:22 PM INSIDE SALES LEAD): Continue supplement Assessment & Plan (07/05/2018 9:23 AM INSIDE SALES LEAD): Continue current supplementation and check level in 1 year. Assessment & Plan (08/26/2017 4:26 PM INSIDE SALES LEAD): Continue current supplementation and check level in [...] Value Date HGBA1C 8.9 (A) 01/09/2025 Per [place] [employer], goal A1c is less 7% without significant hypoglycemia. - Management Goal: A1c <7.5% - Increase Mounjaro to 15 mg once weekly - Continue Lantus 45 units twice daily - Lorenza with meals. Continue sliding scale 1:25 > [...] Component Value Date HGBA1C 11.7 07/13/2024 Per [place] [employer], goal A1c is less 7% [...] that I am available via phone or [employer] if they have any concerns for hypo/hyperglycemia, medication refills, etc. Assessment & Plan (08/26/2024 6:10 PM INSIDE SALES LEAD): Assessment & Plan (07/13/2024 12:20 PM INSIDE SALES LEAD): - Diabetes is complicated by hyperlipidemia, hypertension, morbid obesity and chronic steroid use. Uncontrolled. Lab Results Component Value Date HGBA1C 11.7 07/13/2024 Per [place] [employer], goal A1c is less 7% [...] in prescriptions for both Dexcom G7 and StunnStyle Silva 3 CGM for mcmillan checking. Also [...] Return visit 3 months to see the SENIOR CLINICAL DATA MANAGER/PA, 6 months to see me. Assessment & [...] Component Value Date HGBA1C 12.5 11/17/2023 Per [place] [employer], goal A1c is less 7% [...] Component Value Date HGBA1C 12.5 11/17/2023 Per [place] [employer], goal A1c is less 7% without significant hypoglycemia. - Management Goal: re-start and adherence to medication regimen - Continue current medication regimen at this time. - Patient called local pharmacy to confirm that they do have prescriptions for her Semglee. She is going to chart picker today after this visit. - Insurance [...] that I am available via phone or [employer] if they have any concerns for hypo/hyperglycemia, medication refills, etc. Assessment & Plan (09/12/2023 8:13 PM INSIDE SALES LEAD): Very high glucoses; multifactorial including steroid therapy, [...] daily. Assessment & Plan (06/24/2021 3:29 PM INSIDE SALES LEAD): Much improved but needs a little more basal insulin. Assessment & Plan (12/19/2020 7:53 AM CDT): Multiple medications, but now requires insulin. We can gradually adjust her Lantus based on her clinical response. Assessment & Plan (06/08/2020 8:32 AM INSIDE SALES LEAD): Glucoses somewhat better now that she is [...] motivator. Assessment & Plan (07/08/2019 8:43 AM INSIDE SALES LEAD): Continue increased dose of Ozempic and also continue Invokana. Importance of dietary changes increase exercise weight loss discussed. Follow-up with her automatic trimming sewer as they direct. Assessment & Plan (06/03/2019 8:25 AM CDT): Somewhat suboptimal, would benefit from increasing Ozempic and continuing efforts with diet and lifestyle. Needs follow-up labs Assessment & Plan (09/01/2018 2:22 PM INSIDE SALES LEAD): Glucoses a little high, but she has bruising with Victoza so she may benefit by changing to weekly Ozempic, which is a little stronger, as well. Jardiance is been ineffective, so we may need to provide preauthorization for Invokana Assessment & Plan (07/05/2018 9:23 AM INSIDE SALES LEAD): A1c above goal. We stressed importance of increased exercise, reduce calories, weight loss. Could consider switching Victoza to ozempic. Otherwise does not tolerate metformin or sulfonylureas. May need insulin soon. She is directed to follow up with her automatic trimming sewer more quickly than her next scheduled appointment in November. Assessment & Plan (08/26/2017 4:26 PM INSIDE SALES LEAD): Continue current medication regimen and follow up with her automatic trimming sewer as they direct. Low carb diet weight [...] mmHg Assessment & Plan (07/13/2024 12:21 PM INSIDE SALES LEAD): - Above goal today - Encouraged her [...] monitor. Assessment & Plan (06/08/2023 5:25 PM INSIDE SALES LEAD): Stop amlodipine with current issues of swelling. Pressure currently well controlled and should monitor at home Assessment & Plan (01/21/2023 9:49 AM CDT): Blood pressure well controlled on lisinopril Assessment & Plan (09/04/2022 2:34 PM INSIDE SALES LEAD): Blood pressure well controlled on her lisinopril. Assessment & Plan (08/02/2022 12:15 PM INSIDE SALES LEAD): Increase lisinopril to 20 mg daily. Monitor blood pressure at home call back if no improvement. Assessment & Plan (01/17/2022 10:21 AM CDT): Well controlled on the current regimen. Avoidance of salt, proper body weight, and routine exercise recommended. Assessment & Plan (07/17/2021 2:06 PM INSIDE SALES LEAD): Well controlled on the current regimen. Avoidance of salt, proper body weight, and routine exercise recommended. Assessment & Plan (04/22/2021 8:24 AM CDT): Well controlled on the current regimen. Avoidance of salt, proper body weight, and routine exercise recommended. Assessment & Plan (07/13/2020 8:34 AM INSIDE SALES LEAD): Well controlled on the current regimen. Avoidance of salt, proper body weight, and routine exercise recommended. Assessment & Plan (07/08/2019 8:42 AM INSIDE SALES LEAD): Well controlled on the current regimen. Avoidance of salt, proper body weight, and routine exercise recommended. Assessment & Plan (09/01/2018 2:21 PM INSIDE SALES LEAD): Blood pressure close to target, working on diet and lifestyle Assessment & Plan (07/05/2018 9:23 AM INSIDE SALES LEAD): Well controlled on the current regimen. Avoidance of salt, proper body weight, and routine exercise recommended. Assessment & Plan (08/26/2017 4:25 PM INSIDE SALES LEAD): Well controlled on the current regimen. Avoidance [...] montelukast Assessment & Plan (08/26/2024 6:08 PM INSIDE SALES LEAD): Recent exacerbation due to CAP followed by RSV Symptoms improved Continue present plan and medication--albuterol prn, montelukast Assessment & Plan (07/13/2020 8:36 AM INSIDE SALES LEAD): Doing well on her Symbicort. Okay to discontinue and use albuterol only as needed. Restart Symbicort if uses her albuterol more than 2 times a week. Obstructive sleep apnea 04/01/2012 Overview (11/12/2017): Description: CPAP Assessment & Plan (01/06/2024 9:08 AM CDT): Patient is compliant with the CPAP machine and gets symptomatic relief. Assessment & Plan (08/02/2022 12:15 PM INSIDE SALES LEAD): Patient is compliant with the CPAP machine and gets symptomatic relief. Assessment & Plan (07/17/2021 2:06 PM INSIDE SALES LEAD): Repeat sleep study confirmed obstructive sleep apnea [...] syndrome. Assessment & Plan (07/13/2020 8:34 AM INSIDE SALES LEAD): Patient is compliant with the CPAP machine and gets symptomatic relief. Assessment & Plan (07/08/2019 8:42 AM INSIDE SALES LEAD): Patient is compliant with the CPAP machine and gets symptomatic relief. Female infertility associated with anovulation 0 09/21/2011 Resolved Problems Problem Noted Date Diagnosed Date Resolved Date Decreased functional mobility and endurance 12/29/2024 02/15/2025 Uncontrolled diabetes mellit us with hyperglycemia 08/14/2024 12/21/2024 Acute hypoxic respiratory failure 08/13/2024 12/21/2024 Assessment & Plan (08/26/2024 6:09 PM INSIDE SALES LEAD): Recent hospitalization likely for CAP followed by [...] legs Assessment & Plan (06/15/2023 10:47 AM INSIDE SALES LEAD): Improved after addition of doxycycline to her Bactrim. Call back if symptoms worsen after doxycycline runs out Assessment & Plan (06/08/2023 5:25 PM INSIDE SALES LEAD): Seems like cellulitis slow to improve either [...] 12/21/2024 Assessment & Plan (09/04/2022 2:35 PM INSIDE SALES LEAD): No signs of neurological abnormality on examination [...] Continue other medications as directed by her automatic trimming sewer. Diet exercise discussed. Hopefully may be able to wean prednisone in the near future as well. Assessment & Plan (06/15/2023 10:48 AM INSIDE SALES LEAD): She knows that the steroids will exacerbate her hyperglycemia and should be in contact with her automatic trimming sewer for management. Assessment & Plan (06/08/2023 5:26 PM INSIDE SALES LEAD): Poor control of her diabetes prior to this hospitalization and even worse now on prednisone. Follow-up with her automatic trimming sewer for management. Diet exercise weight loss recommended. Assessment & Plan (01/21/2023 9:50 AM CDT): Blood sugars remain above goal. Hopefully the recent addition of mounjaro will help significantly. Discuss up titration of this and her mealtime insulin with her automatic trimming sewer. Diet exercise discussed. Check A1c and fasting blood sugar before next visit. Assessment & Plan (08/02/2022 12:16 PM INSIDE SALES LEAD): A1c poorly controlled. Importance of diet exercise weight loss discussed at length. Continue her Ozempic and insulin and needs to contact her automatic trimming sewer soon as possible for guidance on further therapy. Assessment & Plan (01/17/2022 10:22 AM CDT): Patient aware A1c grossly uncontrolled. Must work on diet exercise and weight loss. She has to get back on her insulin and should discuss this today with her automatic trimming sewer. Risks posed her health with poor glycemic control discussed. Assessment & Plan (07/13/2020 8:34 AM INSIDE SALES LEAD): A1c above goal. Importance of diet exercise weight loss discussed. Continue current medication regimen and follow-up with her automatic trimming sewer as they direct. Dyslipidemia 06/03/2019 07/13/2020 Healthcare [...] yearly. Colonoscopy due March 2027. Follow-up the special forces senior sergeant for breast exam pelvic exam as they direct. Will see her back in about 6 months sooner if needed. Assessment & Plan (08/02/2022 12:17 PM INSIDE SALES LEAD): Flu shot each May. Tetanus booster every 10 years. Pneumovax completed. COVID booster recommended. Mammogram yearly. Colonoscopy due March 2027. Follow-up the special forces senior sergeant for breast exam pelvic exam as they direct. Will see her back in 6 months with lab sooner if needed. Assessment & Plan (07/17/2021 2:08 PM INSIDE SALES LEAD): Flu shot each May. Tetanus booster every 10 years. Pneumovax completed. COVID vaccine completed. Mammogram yearly. Colonoscopy ordered and she should verify coverage before proceeding. Follow-up the special forces senior sergeant for breast exam and pelvic exam as they direct. We will see her back in 1 year for physical and fasting lab sooner if needed. Assessment & Plan (07/13/2020 8:35 AM INSIDE SALES LEAD): Flu shot each May. Tetanus booster every 10 years. She has had a Pneumovax. Mammogram was abnormal back in August and she has delayed follow-up studies until now and she is urged to get her diagnostic and ultrasound studies done at her earliest convenience and she is aware of the risks posed her health with delay in proceeding. Follow-up the special forces senior sergeant for breast exam and pelvic exam as they direct. We will see her back in 1 year for wellness visit fasting lab sooner if needed. Assessment & Plan (07/08/2019 8:43 AM INSIDE SALES LEAD): Flu shot each May. Tetanus booster every 10 years. Mammogram ordered. Will see her back in 1 year for physical and fasting lab sooner if needed. Assessment & Plan (07/05/2018 9:24 AM INSIDE SALES LEAD): Tetanus booster today. Flu shot each May. Mammogram ordered. Patient should follow-up the special forces senior sergeant breast exam and pelvic exam. We will see her back in 1 year for wellness visit fasting lab sooner if needed. Assessment & Plan (08/26/2017 4:27 PM INSIDE SALES LEAD): Flu shot each May. Tetanus booster every 10 years. See her special forces senior sergeant for breast exam mammogram and Pap smear [...] aerobics Assessment & Plan (08/26/2017 4:28 PM INSIDE SALES LEAD): Patient is encouraged to lose weight with [...] Type Department Care Team Description 02/21/2025 Telephone [facility] at [address] [place] [id number] Adelina Little, PT Appointment 02/20/2025 1:00 PM CDT - 02/20/2025 11:59 PM CDT Hospital Encounter [facility] [id number] [place] [id number] Adam Corrales MD Postdural puncture headache [G97.1] (Primary Dx); New onset of headaches Discharge Disposition: Discharge to home or self care 02/16/2025 9:00 AM CDT Therapy [facility] at [address] [address] Adelina Little, PT Lymphedema (Primary Dx); Decreased functional mobility and endurance 02/15/2025 9:15 AM CDT Office Visit [facility] Primary Care at [address] [phone] Lynn Rodriguez MD Uncontrolled type 2 diabetes mellitus with hyperglycemia (HCC) (Primary Dx); Benign hypertension; Mixed hyperlipidemia; Morbid obesity with BMI of 50.0-59.9, adult (HCC); Moderate persistent asthma without complication; Class 3 severe obesity due to excess calories with serious comorbidity and body mass index (BMI) of 50.0 to 59.9 in adult; FDC (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); Chronic hypoxic respiratory failure (HCC); Lymphedema; Sacroiliitis; Radiculopathy, lumbosacral region; Spinal stenosis of lumbar region with neurogenic claudication; Autoimmune disease 02/14/2025 12:59 PM CDT - 02/14/2025 11:59 PM CDT Hospital [facility] [address] [place] [id number] Adam Corrales MD Radiculopathy, lumbosacral region [M54.17] (Primary Dx); Spinal stenosis of lumbar region with neurogenic claudication Discharge Disposition: Discharge to home or self care 02/09/2025 9:00 AM CDT Therapy [facility] at [address] [address] Adelina Little, PT Lymphedema (Primary Dx); Decreased functional mobility and endurance 02/09/2025 Orders Only [facility] Medicine at [address] [phone] Iqra Jensen MD JEREMY (obstructive sleep apnea) (Primary Dx) 02/07/2025 12:00 PM CDT Therapy [facility] at [address] [address] Ele Vazquez, PT Lymphedema (Primary Dx); Decreased functional mobility and endurance 02/07/2025 Plan of Care Documentation [facility] at [address] [id number] 02/06/2025 9:30 AM CDT - 02/06/2025 11:59 PM CDT Hospital Encounter [facility] [address] [facility] [address] [place] [address] Amada Baldwin, ERIN Spinal stenosis of lumbar region with neurogenic claudication (Primary Dx); Radiculopathy, lumbosacral region; Sacroiliitis; Chronic right-sided low back pain with right-sided sciatica; Uncontrolled type 2 diabetes mellitus with hyperglycemia (HCC); Morbid obesity with BMI of 50.0-59.9, adult (HCC); Benign hypertension Discharge Disposition: Discharge to home or self care 02/02/2025 3:02 PM CDT - 02/02/2025 5:37 PM CDT Emergency [facility] Emergency Department [id number] [place] [id number] Sumit Yu MD Fall, initial encounter (Primary Dx) Discharge Disposition: Discharge to home or self care 02/02/2025 2:04 PM CDT - 02/02/2025 11:59 PM CDT Hospital Encounter [facility] Imaging and Radiology [address] [place] [address] Adam Corrales MD Chronic low back pain with sciatica, sciatica laterality unspecified, unspecified back pain laterality Discharge Disposition: Discharge to home or self care 02/02/2025 Telephone [facility] Rehabilitation Services at [address] [address] Adelina Little, PT Appointment 01/30/2025 12:00 PM CDT Therapy [facility] Services at [address] [place] [address] Tiffanie Cantu, PT Lymphedema (Primary Dx); Decreased functional mobility and endurance 01/24/2025 10:15 AM CDT Lab [facility] [address] [place] [address] 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 9:49 AM CDT - 01/24/2025 11:59 PM CDT Hospital Encounter [facility] Radiology [facility]) [address] [place] [address] Lucian Trinidad MD PhD Cutaneous vasculitis Discharge Disposition: Discharge to home or self care 01/24/2025 9:00 AM CDT Office Visit [facility] Rheumatology [address] [facility] Advanced Medicine 5th [place] [address] [place] [phone] Lucian Trinidad MD PhD 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 Results Follow-Up [facility] Rheumatology [address] [facility] Medicine 5th [place] [address] [place] [address] Lucian Trinidad MD PhD XR Wrist Right 3 or More Views 01/23/2025 12:00 PM CDT Therapy [facility] Services at [address] [address] Tiffanie Cantu, PT Lymphedema (Primary Dx); Decreased functional mobility and endurance 01/23/2025 Telephone [facility] Gastroenterology at [address] [phone] Graciela Shultz 01/20/2025 2:00 PM CDT Therapy [facility] at [address] [address] Tiffanie Cantu, PT Lymphedema (Primary Dx); Decreased functional mobility and endurance 01/19/2025 7:00 PM CDT - 01/19/2025 11:59 PM CDT Hospital Encounter [facility] [address] [place] [address] Obstructive sleep apnea Discharge Disposition: Discharge to home or self care 01/18/2025 3:00 PM CDT Therapy [facility] at [address] [address] Tiffanie Cantu, PT Lymphedema (Primary Dx); Decreased functional mobility and endurance 01/11/2025 1:00 PM CDT Therapy [facility] Services at [facility] [address] [facility] [address] [place] [address] Tiffanie Cantu, PT Lymphedema (Primary Dx); Decreased functional mobility and endurance 01/10/2025 12:21 PM CDT - 01/10/2025 11:59 PM CDT Hospital Encounter [facility] [address] [place] [address] Adam Corrales MD Chronic low back pain with sciatica, sciatica laterality unspecified, unspecified back pain laterality (Primary Dx); Acute right-sided low back pain with right-sided sciatica; Sacroiliitis; Radiculopathy, lumbosacral region; Chronic right-sided low back pain with right-sided sciatica Discharge Disposition: Discharge to home or self care 01/09/2025 3:10 PM CDT Lab [facility] Advanced [facility]) [address] [place] [address] 01/09/2025 2:55 PM CDT Lab [facility] Advanced [facility] ([facility]) [address] [place] [phone] Uncontrolled type 2 diabetes mellitus with hyperglycemia (HCC); Obstructive sleep apnea; Iron deficiency; Restless leg syndrome 01/09/2025 11:30 AM CDT - 01/09/2025 11:59 PM CDT Hospital Encounter [facility] Breast [facility] ([facility]) [address] [place] [address] Screening mammogram, encounter for Discharge Disposition: Discharge to home or self care 01/09/2025 10:30 AM CDT Office Visit [facility] Endocrinology Metabolism and Lipid [address] [facility] 13th [place] [address] [place] [address] Shirley Teixeira PA Uncontrolled type 2 diabetes mellitus with hyperglycemia (HCC) (Primary Dx); Benign hypertension; Mixed hyperlipidemia; Morbid obesity with BMI of 50.0-59.9, adult (HCC); FDC 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 user; rn long term care (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); Encounter for comprehensive diabetic foot examination, type 2 diabetes mellitus (HCC) 01/09/2025 Results Follow-Up [facility] Sleep Medicine at [address] [place] [phone] Iqra Jensen MD Ferritin 01/09/2025 Results Follow-Up [facility] Endocrinology Metabolism and Lipid [address] [facility] 13th [place] [address] [place] [address] Shirley Teixeira PA Vitamin D 25 hydroxy, Vitamin B12, TSH, Additional followed-up results: 6 01/06/2025 2:00 PM CDT Therapy [facility] Rehabilitation Services at [address] [address] Tiffanie Cantu, PT Lymphedema (Primary Dx); Decreased functional mobility and endurance 01/06/2025 Plan of Care Documentation [facility] Services at [address] [address] 01/06/2025 Documentation [facility] Services at [address] [address] Tiffanie Cantu, PT compression script 01/06/2025 Plan of Care Documentation [facility] Services at [address] [address] 01/04/2025 12:00 PM CDT Therapy [facility] Services at [address] [address] Tiffanie Cantu, PT Lymphedema (Primary Dx); Decreased functional mobility and endurance 01/03/2025 Results Follow-Up [facility] Pulmonary at [address] [place] [phone] Canelo Doan DO Transthoracic Echo (TTE) Complete W Doppler/CF 01/02/2025 9:30 AM CDT Office Visit [facility] Sleep Medicine at [address] [place] [address] Iqra Jensen MD Obstructive sleep apnea (Primary Dx); Hypersomnia; Obesity, unspecified class, unspecified obesity type, unspecified whether serious comorbidity present; Iron deficiency; Restless leg syndrome 12/30/2024 Telephone [facility] Gastroenterology at [address] [place] [phone] Ad Camacho MD 12/29/2024 9:00 AM CDT Therapy [facility] Services at [address] [address] Ele Vazquez PT Lymphedema (Primary Dx); Decreased functional mobility and endurance 12/29/2024 Plan of Care Documentation [facility] Services at [address] [id number] 12/23/2024 6:57 AM CDT - 12/23/2024 11:59 PM CDT Hospital Encounter [facility] Cardiology 1 [place] [address] Hypoxia Discharge Disposition: Discharge to home or self care 12/22/2024 Telephone [facility] Gastroenterology at [address] [place] [phone] Alex Billings MD 12/21/2024 2:30 PM CDT Office Visit [facility] Primary Care at [facility] [address] [place] [address] [place] [phone] Lynn Rodriguez MD Acute right-sided low back [...] Films 12/13/2024 2:30 PM CDT Office Visit [facility] Pulmonary at [address] [place] [address] Canelo Doan DO Moderate persistent asthma without complication (Primary Dx); Class 3 severe obesity due to excess calories with serious comorbidity and body mass index (BMI) of 45.0 to 49.9 in adult; Chronic hypoxic respiratory failure (HCC); rn long term care 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 user 11/30/2024 3:30 PM CDT Office Visit [facility] Convenient Care at [address] [phone] Minnie House NP Acute non-recurrent frontal sinusitis (Primary Dx) from Last 3 Months Immunizations Immunization Administration Dates Next Due Influenza, Quadrivalent, Rosita l Culture-based MDCK, Preservative Free, Antibiotic Free, Intramuscular 05/13/2023,05/23/2022 Influenza, Quadrivalent, Spl it, Intramuscular 05/03/2015 Influenza, Quadrivalent, Spl it, Preservative Free, Intramuscular 05/16/2020,05/07/2018 Influenza, Unspecified 05/16/2021,2020,04/22/2021(Defer red: Patient Refused),03/19/2021(Deferred: Patient Refused),05/12/2019,05/07/2017 [employer] ([employer]) SARS-CoV-2 Vaccination 10/05/2020 Pneumococcal Conjugate Pcv20 [...] - Hx Other Medical Diabetes; Comme nts: W 04/11/2014 - Hx Other Medical Seasonal allerg [...] IVF transfer 2015 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 Morbid obesity (HCC) [...] on file Legal Sex Female 11:54 PM INSIDE SALES LEAD Gender Identity Female 09/19/2020 8:37 AM INSIDE SALES LEAD Sexual Orientation Straight 09/19/2020 8: 37 AM INSIDE SALES LEAD Obstetrics History Para Term AB IAB SAB [...] Description 04/27/2025 7:30 AM CDT Hospital Encounter [address] [address] Ad Camacho MD [address] [facility] [address] [place] [address] 04/27/2025 7:30 AM CDT - 04/27/2025 8:00 AM CDT Surgery [address] [address] Ad Camacho MD [address] [facility] [place] [address] ESOPHAGOGASTRODUODENOSCOPY Scheduled Procedures Name Priority Associated Diagnoses [...] 2025 , 05/23/2022, 05/16/2021, Additional history exists Foot Exam [...] Maintenance Results * Imaging Epidural Blood Patch (91144) (02/20/2025 2:32 PM CDT) Narrative RAD_PACS_[facility] - 02/20/2025 2:33 PM CDT The images from this study are not interpreted by Radiology. Please refer to the physician's procedure / OR operative note. us Adam Corrales MD IMG PAIN MGMT PROCEDU RES Final Result RAD_PACS_[facility] * LALO ab ql w/rflx to LALO qn (02/15/2025 10:41 AM CDT) LALO, qual NEGATIVE NEGATIVE [facility] [place] Comment: LALO IFA is a first line [...] AC-0: Negative International Consensus on LALO Patterns (https://doi.org/10.1515/mqlw-0817-9349) For additional information, please refer to http://education.[employer]/faq/MFK517 (This link is being provided for informational/ educational purposes only.) Blood 02/15/2025 10:4 1 AM CDT 02/15/2025 10:43 AM CDT Narrative [facility] - 02/21/2025 7:05 PM CDT FASTING:YES FASTING: YES us Lucian Trinidad MD PhD LAB BLOOD ORDERABLE S Final Result Performing Organization Address [facility] de Phone Number [facility] [facility] [address] [place] [address] * Anti-double stranded DNA abs (02/15/2025 10:41 AM CDT) DNA (DS) ab <1 IU/mL [facility] Comment: IU/mL Interpretation < or = 4 Negative 5-9 Indeterminate > or = 10 Positive Blood 02/15/2025 10:4 1 AM CDT 02/15/2025 10:43 AM CDT Narrative [facility] - 02/21/2025 7:05 PM CDT FASTING:YES FASTING: YES us Lucian Trinidad MD PhD LAB BLOOD ORDERABLE S Final Result Performing Organization Address [facility] de Phone Number [facility] [address] [place] [address] * NOTE (02/15/2025 10:41 AM CDT) Note [facility] Comment: This urine was analyzed for the presence of WBC, RBC, bacteria, casts, and other formed elements. Only those elements seen were reported. 02/15/2025 10:4 1 AM CDT 02/15/2025 10:43 AM CDT Narrative [facility] - 02/21/2025 7:05 PM CDT FASTING:YES FASTING: YES Lucian Trinidad MD PhD LAB BLOOD ORDERABLE S Final Result Performing Organization Address [facility] de Phone Number [facility] [address] [place] [address] * C4 complement (02/15/2025 10:41 AM CDT) Complement component C4C 24 15 - 57 mg/dL [facility] Blood 02/15/2025 10:4 1 AM CDT 02/15/2025 10:43 AM CDT Narrative [facility] - 02/21/2025 7:05 PM CDT FASTING:YES FASTING: YES Lucian Trinidad MD PhD LAB BLOOD ORDERABLE S Final Result Performing Organization Address [facility] de Phone Number [facility] [address] [place] [address] * PR3 - proteinase 3, Ab (02/15/2025 10:41 AM CDT) Proteinase-3 ab <1.0 AI [facility] Comment: Value Interpretation ----- <1.0 No Antibody Detected > or = 1.0 Antibody Detected Autoantibodies to proteinase-3 (CA-3) are accepted as characteristic for granulomatosis with polyangiitis (GPA, Brent's), and are detectable in 95% of the histologically proven cases. The cytoplasmic IFA pattern, (c-ANCA), is based largely on autoantibody to CA-3 which serves as the primary antigen. These autoantibodies are present in active disease. Blood 02/15/2025 10:4 1 AM CDT 02/15/2025 10:43 AM CDT Narrative [facility] - 02/21/2025 7:05 PM CDT FASTING:YES FASTING: YES Lucian Trinidad MD PhD LAB BLOOD ORDERABLE S Final Result Performing Organization Address [facility] de Phone Number PILO [facility] [address] [place] [address] * MPO - myeloperoxidase antibody (02/15/2025 10:41 AM CDT) Pathologist [facility] MYELOPEROXIDASE ANTIBODY <1.0 AI [facility] [employer] [place] Comment: Value Interpretation ----- <1.0 No Antibody [...] Final Result Performing Organization Address [facility] de Phone Number [facility] [address] [place] [address] * (ABNORMAL) Urinalysis reflex to microscopic (02/15/2025 10:41 AM CDT) Color, ur YELLOW YELLOW [facility] Appearance, ur CLOUDY(A) CLEAR [facility] Specific gravity 1.039(H) 1.001 - 1.035 [facility] pH, ur < OR = 5.0(A) 5.0 - 8.0 [facility] [place] [facility] Glucose, ur 2+(A) NEGATIVE [facility] [place] [facility] Bilirubin, ur NEGATIVE NEGATIVE [facility] Ketones, ur TRACE(A) NEGATIVE [facility] [place] [facility] Blood, ur 1+(A) NEGATIVE [facility] [place] [facility] Protein, ur, quant 1+(A) NEGATIVE [facility] [place] [facility] Nitrites, ur NEGATIVE NEGATIVE [facility] [place] [facility] Leukocyte esterase, ur NEGATIVE NEGATIVE [facility] [place] [facility] WBC, ur NONE SEEN < OR = 5 /HPF [facility] [place] RBC, ur NONE SEEN < OR = 2 /HPF [facility] [place] [facility] Epithelial cells, squamous, ur 20-40(A) < OR = 5 /HPF [facility] [place] [facility] Bacteria, ur, quant FEW(A) NONE SEEN /HPF [facility] [place] [facility] Hyaline cast NONE SEEN NONE SEEN /LPF [facility] Yeast, ur MANY(A) NONE SEEN /HPF [facility] [place] [facility] Urine 02/15/2025 10:4 1 AM CDT 02/15/2025 10:43 AM CDT Narrative [facility] - 02/21/2025 7:05 PM CDT FASTING:YES FASTING: YES us Lucian Trinidad MD PhD LAB URINE ORDERABLE S Final Result [facility] [facility] [address] [place] [address] * (ABNORMAL) CBC with auto differential (02/15/2025 [...] BLOOD ORDERABLE S Final Result [facility] [facility] [address] [place] [address] * Cyclic citrul peptide antibody, IgG (02/15/2025 10:41 AM CDT) Pathologist [facility] Cyclic citrullinated peptide ab, IgG <16 UNITS [facility] Comment: Reference Range Negative: <20 Weak Positive: 20-39 Moderate Positive: 40-59 Strong Positive: >59 Blood 02/15/2025 10:4 1 AM CDT 02/15/2025 10:43 AM CDT Narrative [facility] - 02/21/2025 7:05 PM CDT FASTING:YES FASTING: YES Lucian Trinidad MD PhD LAB BLOOD ORDERABLE S Final Result [facility] [address] [place] [address] * (ABNORMAL) Protein / creatinine ratio, urine, [...] ORDERABLE S Final Result Performing Organization Address [facility]/ZIP Co de Phone Number [facility] [address] [place] [address] * Cryoglobulin, Serum and Plasma (02/15/2025 10:41 AM CDT) Cryoglobulin, Qual Negative Negative [facility] Comment: The Cryocrit is primarily intended for following a patient with previously defined and quantitated cryoglobulins. The cryocrit may consist of cryoglobulins, fibrins, complement, or mixtures of these. Blood 02/15/2025 10:4 1 AM CDT 02/15/2025 10:43 AM CDT Narrative [facility] - 02/21/2025 7:05 PM CDT FASTING:YES FASTING: YES us Lucian Trinidad MD PhD LAB BLOOD ORDERABLE S Final Result Performing Organization Address City/[facility]/ZIP Co de Phone Number [facility] [address] [place] [address] * Aldolase (02/15/2025 10:41 AM CDT) ALDOLASE 6.6 < OR = 8.1 U/L [facility] Blood 02/15/2025 10:4 1 AM CDT 02/15/2025 10:43 AM CDT Narrative [facility] - 02/21/2025 7:05 PM CDT FASTING:YES FASTING: YES us Lucian Trinidad MD PhD LAB BLOOD ORDERABLE S Final Result Performing Organization Address City/[facility]/ZIP Co de Phone Number [facility] [facility] [address] [place] [address] * Erythrocyte sedimentation rate (02/15/2025 10:41 AM CDT) Pathologist [facility] Erythrocyte sedimentation rate 6 < OR = 20 mm/h [facility] Blood 02/15/2025 10:4 1 AM CDT 02/15/2025 10:43 AM CDT Narrative [facility] - 02/21/2025 7:05 PM CDT FASTING:YES FASTING: YES Lucian Trinidad MD PhD LAB BLOOD ORDERABLE S Final Result Performing Organization Address [facility] de Phone Number QUEST [facility] [facility] [address] [place] [address] * Rheumatoid factor (02/15/2025 10:41 AM CDT) Rheumatoid factor, quant <10 <14 IU/mL [facility] Blood 02/15/2025 10:4 1 AM CDT 02/15/2025 10:43 AM CDT Narrative [facility] - 02/21/2025 7:05 PM CDT FASTING:YES FASTING: YES Lucian Trinidad MD PhD LAB BLOOD ORDERABLE S Final Result Performing Organization Address City/[facility]/ZIP Co de Phone Number [facility] [address] [address] [facility] [place], [place] [address] * C3 complement (02/15/2025 10:41 AM CDT) Complement component C3C 188 83 - 193 mg/dL [facility] Blood 02/15/2025 10:4 1 AM CDT 02/15/2025 10:43 AM CDT Narrative [facility] - 02/21/2025 7:05 PM CDT FASTING:YES FASTING: YES us Lucian Trinidad MD PhD LAB BLOOD ORDERABLE S Final Result PILO [facility] [address] [place] [address] * CRP (cardiac risk) (02/15/2025 10:41 AM CDT) Pathologist [facility] hsCRP 2.9 mg/L [facility] Comment: Reference Range Optimal <1.0 Vaishaliinger PS et al. Endocr Pract.2017;23(Suppl 2):1-87. For [...] may be associated with infection and inflammation. Nicole TA, Adenike GA, Piyush RW, et al. Markers of inflammation and cardiovascular disease: application to clinical and public health practice: A statement for healthcare professionals from the Centers for Disease Control and Prevention and the [place] [employer]. Circulation 2003; 107(3): 499-511. Blood 02/15/2025 10:4 1 AM CDT 02/15/2025 10:43 AM CDT Narrative [facility] - 02/21/2025 7:05 PM CDT FASTING:YES FASTING: YES us Lucian Trinidad MD PhD LAB BLOOD ORDERABLE S Final Result Performing Organization Address [facility] Co de Phone Number [facility] [address] [place] [address] * Creatine kinase (CK), total (02/15/2025 10:41 AM CDT) Pathologist [facility] CK 82 20 - 239 U/L [facility] Blood 02/15/2025 10:4 1 AM CDT 02/15/2025 10:43 AM CDT Narrative [facility] - 02/21/2025 7:05 PM CDT FASTING:YES FASTING: YES Lucian Trinidad MD PhD LAB BLOOD ORDERABLE S Final Result Performing Organization Address [facility] de Phone Number QUEST [facility] [address] [place] [address] * (ABNORMAL) Comprehensive metabolic panel (02/15/2025 10:41 AM CDT) Pathologist [facility] Glucose 279(H) 65 - 99 mg/dL [facility] [...] BLOOD ORDERABLE S Final Result [facility] [facility] [address] [place] [address] * Imaging Lumbar/Caudal Epidural Steroid INJ ([id number]) (02/14/2025 1:38 PM CDT) Narrative RAD_PACS_[facility] - 02/14/2025 1:38 PM CDT The images from this study are not interpreted by Radiology. Please refer to the physician's procedure / OR operative note. us Amada Baldwin SENIOR CLINICAL DATA MANAGER IMG PAIN MGMT PROCEDURE S Final Result RAD_PACS_[facility] * MRI Lumbar Spine WO Contrast (02/02/2025 6:25 PM CDT) Anatomical Region Laterality Modality Spine N/A Magnetic Resonan ce 02/06/2025 9:0 1 AM CDT Impressions 02/06/2025 9:01 AM CDT [...] arthropathy. Electronically signed by: Kota Mcmillan M.D. us Adam Corrales MD IMG MRI PROCEDURES Fi [...] Kan Desai M.D. us Sumit Yu MD IM XR PROCEDURES Final Result * XR Chest [...] disease. Electronically signed by: Kan Desai M.D. us Sumit Yu MD IM XR PROCEDURES Final Result * CT Head [...] Blood (01/27/2025 2:03 PM CDT) Blood Narrative [facility] - 01/27/2025 2:03 PM CDT Blood draw complete us Lucian Trinidad MD PhD LAB BLOOD ORDERABLE S Final Result [facility] [place] [address] * XR Hand Right 3 or More [...] Antibodies against the following antigens: Ashly-1 Ab, GAS DISPENSER Ab, Scl-70 Ab, Bradshaw Ab, SS-A/Ro Ab, and SS- B/La Ab. Further testing for dsDNA, Centromere, or Ribosomal P antibodies is suggested in patient with a positive screen and negative specific antibodies. Current interpretive data was last revised on 2023. Blood 01/24/2025 9:41 AM CDT 01/24/2025 10:43 AM CDT us Lucian Trinidad MD PhD LAB BLOOD ORDERABLE S Final Result SALMA [facility] Department of Laboratories [place], [place] [id number] * Anti-Neutrophilic Cytoplasmic Antibody (ANCA) with Reflex to MPO and PR3 Abs (01/24/2025 9:41 AM CDT) ANCA Negative Blood 01/24/2025 9:41 AM CDT 01/24/2025 10:43 AM CDT us Lucian Trinidad MD PhD LAB BLOOD ORDERABLE S Final Result SALMA [facility] [place] [address] * Neuromuscular Testing Blood (01/24/2025 12:00 AM CDT) Blood (Serum) 01/24/2025 01/25/2025 Narrative [facility] - 02/06/2025 4:56 PM CDT Please click on the PDF link to view the report containing this result us Lucian Trinidad MD PhD LAB PATHOLOGY ORDER DAVI Final Result Performing Organization Address City/[facility]/ZIP Co de Phone Number [facility] Room [address] [place] [address] * eGFR (01/09/2025 12:30 PM CDT) eGFR [...] of Race in Diagnosing Kidney Disease, JASN 202). The CKD-EPI equation should not be used for patients with unstable renal function and has not been validated in children and those over 70. Current interpretive data was last reviewed 2021. Blood 01/09/2025 12:3 0 PM CDT 01/09/2025 1:21 PM CDT Shirley CHUN LAB BLOOD ORDERABLES Flora dowd Result [facility] [place] [address] * (ABNORMAL) Differential, auto (01/09/2025 12:30 PM CDT) Neutrophil abs 10.98(H) 1.50 - 6.50 K/cumm Imm gran abs 0.13(H) 0.00 - 0.10 K/cumm [facility] Lymphocyte abs 1.66 0.80 - 3.30 K/cumm [facility] Monocyte abs 1.29(H) 0.20 - 0.80 K/cumm [facility] Eosinophil abs 0.05 0.00 - 0.50 K/cumm ORO [facility] Basophil abs 0.06 0.00 - 0.10 K/cumm [facility] Neutrophil pct 77.5 % [facility] Comment: Interpretive Data Percent cell count reference ranges are not reported, since discordance with absolute values may lead to misinterpretation of CBC data. Current Interpretive Data was last revised on 2017. Imm gran pct 0.9 % [facility] Comment: Interpretive Data Percent cell count reference ranges are not reported, since discordance with absolute values may lead to misinterpretation of CBC data. Current Interpretive Data was last revised on 2017. Lymphocyte pct 11.7 % [facility] Comment: Interpretive Data Percent cell count reference ranges are not reported, since discordance with absolute values may lead to misinterpretation of CBC data. Current Interpretive Data was last revised on 2017. Monocyte pct 9.1 % [facility] Comment: Interpretive Data Percent cell count reference ranges are not reported, since discordance with absolute values may lead to misinterpretation of CBC data. Current Interpretive Data was last revised on 2017. Eosinophil pct 0.4 % [facility] Comment: Interpretive Data Percent cell count reference ranges are not reported, since discordance with absolute values may lead to misinterpretation of CBC data. Current Interpretive Data was last revised on 2017. Basophil pct 0.4 % [facility] Comment: Interpretive Data Percent cell count reference ranges are not reported, since discordance with absolute values may lead to misinterpretation of CBC data. Current Interpretive Data was last revised on 2017. Blood 01/09/2025 12:3 0 PM CDT 01/09/2025 1:18 PM CDT Shirley CHUN LAB BLOOD ORDERABLES Flora l Result Performing Organization Address City/[facility]/ZIP Co de Phone Number [facility] [place] [address] * (ABNORMAL) CBC with auto differential (01/09/2025 12:30 PM CDT) WBC 14.17(H) 3.80 - 9.90 K/cumm Hgb 12.2 11.9 - 15.5 g/dL [facility] Hct 38.2 35.6 - 45.5 % [facility] Plt 417(H) 150 - 400 K/cumm [facility] MPV 10.2 9.1 - 12.3 fL [facility] RBC 4.21 3.90 - 5.20 M/cumm [facility] MCV 90.7 81.3 - 96.4 fL [facility] MCH 29.0 27.1 - 33.3 pg [facility] MCHC 31.9(L) 32.3 - 35.7 g/dL [facility] RDW CV 16.4(H) 11.1 - 14.9 % [facility] RDW SD 54.8(H) 35.7 - 48.1 fL [facility] NRBC abs 0.00 0.00 - 0.01 K/cumm [facility] Blood 01/09/2025 12:3 0 PM CDT 01/09/2025 1:18 PM CDT Shirley CHUN LAB BLOOD ORDERABLES Flora l Result Performing Organization Address [facility]/ZIP Co de Phone Number [facility] Department [place] [address] * Albumin Creatinine Ratio, Urine (01/09/2025 12:30 PM CDT) Albumin Ur 37.8 mg/L Comment: Interpretive Data No reference range established. Current interpretive data was last revised 2018. Creatinine Ur 353.8 mg/dL [facility] Comment: Interpretive Data No reference range established. Current interpretive data was last revised 2018. Albumin Creatinine Ratio, Ur 11 1 - 29 mg/g [facility] Urine 01/09/2025 12:3 0 PM CDT 01/09/2025 1:18 PM CDT Shirley CHUN LAB URINE ORDERABLES Flora l Result Performing Organization Address [facility] de Phone Number [facility] [place] [address] * Vitamin D 25 hydroxy (01/09/2025 12:30 PM CDT) Pathologist [facility] Vitamin D 25-OH 38 30 - 80 ng/mL Blood 01/09/2025 12:3 0 PM CDT 01/09/2025 1:18 PM CDT Result [facility] Shirley CHUN LAB BLOOD ORDERABLES Flora l Result Performing Organization Address [facility] Co de Phone Number [facility] [place] [address] * TSH (01/09/2025 12:30 PM CDT) Thyroid Stimulating Hormone 1.92 0.30 - 4.20 mcIUnit/mL Blood 01/09/2025 12:3 0 PM CDT 01/09/2025 1:18 PM CDT Shirley CHUN LAB BLOOD ORDERABLES Flora l Result Performing Organization Address [facility] Co de Phone Number [facility] [place] [address] * Ferritin (01/09/2025 12:30 PM CDT) Ferritin 42 13 - 150 ng/mL Blood 01/09/2025 12:3 0 PM CDT 01/09/2025 1:18 PM CDT us Iqra Jensen MD LAB BLOOD ORDERABLES Final Resul t Performing Organization Address [facility] Co de Phone Number [facility] [place] [address] * Vitamin B12 (01/09/2025 12:30 PM CDT) Pathologist [facility] Vitamin B12 415 230 - 1,250 pg/mL Blood 01/09/2025 12:3 0 PM CDT 01/09/2025 1:18 PM CDT us Shirley CHUN LAB BLOOD ORDERABLES Flora l Result Performing Organization Address [facility] de Phone Number [facility] [place] [address] * (ABNORMAL) Lipid panel (01/09/2025 12:30 PM [...] revised on 2018. Triglycerides 334(H) <=149 mg/dL [facility] Comment: Interpretive Data Ages [...] revised on 2018. HDL 75 >=40 mg/dL [facility] Comment: Interpretive Data Ages [...] on 2018. LDL, calculated 127 <=129 mg/dL [facility] Comment: Interpretive Data Ages [...] on 2024. Non-HDL Cholesterol 185 mg/dL [facility] Comment: Interpretive Data Ages [...] last revised on 2018. Chol/HDL ratio 3 [facility] Blood 01/09/2025 12:3 0 PM CDT 01/09/2025 1:18 PM CDT Shirley CHUN LAB BLOOD ORDERABLES Flora dowd Result [facility] [place] [address] * (ABNORMAL) Comprehensive metabolic panel (01/09/2025 12:30 PM CDT) Sodium 139 135 - 145 mmol/L Potassium, pl 4.4 3.3 - 4.9 mmol/L [facility] Chloride 99 97 - 110 mmol/L [facility] CO2 27 22 - 32 mmol/L [facility] Anion gap 13 2 - 15 mmol/L [facility] BUN 22 6 - 25 mg/dL [facility] Creatinine 0.74 0.60 - 1.10 mg/dL [facility] Glucose 314(H) 70 - 199 mg/dL [facility] Comment: Interpretive Data Fasting glucose >/= [...] Calcium 9.2 8.5 - 10.3 mg/dL [facility] Bilirubin, total 0.3 0.1 - 1.2 mg/dL [facility] Protein, pl 6.7 6.5 - 8.5 g/dL [facility] Albumin 4.0 3.5 - 5.0 g/dL [facility] Alk phos 54 40 - 130 Units/L [facility] ALT 69(H) 7 - 45 Units/L [facility] AST 25 10 - 45 Units/L [facility] Blood 01/09/2025 12:3 0 PM CDT 01/09/2025 1:18 PM CDT Shirley CHUN LAB BLOOD ORDERABLES Flora dowd Result [facility] [place] [address] * Screening Mammogram Bilateral W Vincenzo (01/09/2025 [...] POCT hemoglobin A1c (01/09/2025 10:44 AM CDT) Pathologist [facility] Hemoglobin A1C, POC 8.9(A) 4.0 - 5.6 % Blood 01/09/2025 10:4 4 AM CDT Shirley CHUN POINT OF CARE TEST ORDERA BLES Final Result * POCT glucose (01/09/2025 10:43 AM CDT) Pathologist [facility] Glucose Blood, POC 164 Normal Fasting 70 - 100, Random <200 mg/dL Blood 01/09/2025 10:4 3 AM CDT Shirley CHUN POINT OF CARE TEST ORDERA BLES Final Result * TRANSTHORACIC ECHO (TTE) COMPLETE W DOPPLER/CF WO CONTRAST (12/23/2024 7:43 AM CDT) Pathologist [facility] Estimated EF 55-60 % CONS SCIMAGE Anatomical Region Laterality Modality Ultrasound 12/23/2024 7:09 AM CDT Narrative 12/23/2024 9:46 AM CDT [address] [address] Echocardiogram Report Patient Name: WALT HUITRON : 1975 Study Date: 12/23/2024 7:09:04 AM Gender: F Tech: SENIOR CLINICAL DATA MANAGER Location: Echo Lab 1 Ref Provider: CANELO [...] with suboptimal views. Electronically Signed By: German Waethers MD 12/23/2024 9:45:42 AM CDT Procedure Note German Weathers MD - 12/23/[address] [address] Echocardiogram Report Patient Name: WALT HUITRON : 1975 Study Date: 12/23/2024 7:09:04 AM Gender: F Tech: SENIOR CLINICAL DATA MANAGER Location: Echo Lab 1 Ref Provider: CANELO [...] Camacho MD - 04/02/2022 9:28 AM CDT [facility] Patient Name: Walt Huitron Procedure Date: 04/02/2022 9:28 AM Date of : 1975 Admit Type: Outpatient Age: 46 Gender: Female Attending MD: Ad Camacho M.D. Room: [facility] ENDOSCOPY ROOM 2 Note Status: Finalized Patient [...] scope was passed under direct vision. TheColonoscope [id number] was introduced through the anus and advanced [...] 9:28 AM Procedure Code(s): --- Professional --- 61873, Colonoscopy, flexible; with biopsy, single or multiple Diagnosis Code(s): --- Professional --- Z12.11, Encounter for screening for malignant neoplasm of colon D12.3, Benign neoplasm of transverse colon (hepatic flexure orsplenic flexure) D12.4, Benign neoplasm of descending colon D12.8, Benign neoplasm of rectum CPT copyright 2020 [employer]. All rights reserved. The codes documented in this report are preliminary and upon study manager reviewmay be revised to meet current compliance requirements. Recognized by the [place] [employer] for promoting quality in endoscopy Ad Camacho MD ENDOSCOPY PROCEDURES Final Resul t * Diabetic Foot Exam (03/26/2021) Impressions Art Staley MA - 03/26/2021 In care everywhere Historical Provider HEALTH MAINTENANCE Final Result from Last 3 Months or Most Recently Relevant to Health Maintenance Insurance [employer] [facility] Advance Directives For more information, please contact: [phone] * Full Code (Latest Code Status on File) Date Activated Date Inactivated Comments 04/02/2022 9:27 AM 04/02/2022 4:47 PM * Full Code Date Activated Date Inactivated Comments 04/02/2022 9:27 AM 04/02/2022 9:27 AM Care Teams Clothespin Machine Operator Relationship Specialty [place] [address] [facility] [address] [place] [address] PCP - General Internal Medicine 04/06/24 Ann Serrano MD Referring Physician Endocrinology Diabetes & Metabolism 06/08/20
--- OUTSIDE RECORDS SUMMARY | 2025-02-27 10:45 | XMS_ITS | Encounter Summary ---
Author Organization [facility] Address [address] [place] [address] Phone Care Team Providers Care Java J2Ee Application Developer Name Role Phone Ann Serrano MD Unavailable [phone] Lynn Rodriguez MD Primary Care Provider Encounter Details Date Type Department Care Team (Late st Contact Info) Description 01/24/2025 Results Follow-Up [facility] Rheumatology [address] [facility] 5th [place] [address] [place] [address] Lucian Trinidad MD PhD [address] [place] [address] XR Wrist Right 3 or [...] on file Legal Sex Female 11:54 PM MOVING CONSULTANT Gender Identity Female 09/19/2020 8:37 AM MOVING CONSULTANT Sexual Orientation Straight 09/19/2020 8: 37 AM MOVING CONSULTANT documented as of this encounter Plan of Treatment Upcoming Encounters Date Type Department Care Team (Latest Contact Info) Description 04/27/2025 7:30 AM CDT Hospital Encounter [address] [address] Ad Camacho MD [address] [facility] [address] [place] [address] 04/27/2025 7:30 AM CDT - 04/27/2025 8:00 AM CDT Surgery [address] [address] Ad Camacho MD [address] [facility] [address] [place] [address] ESOPHAGOGASTRODUODENOSCOPY Scheduled Procedures Name Priority Associated Diagnoses Date/Ti nv ESOPHAGOGASTRODUODENOSCOPY Dysphagia, unspecified type 04/27/2025 7:30 AM CDT documented as of this encounter Visit Diagnoses Not on filedocumented in this encounter Care Teams Java J2Ee Application Developer Relationship Specialty [place] [address] [address] PCP - General Internal Medicine 04/06/24 Ann Serrano MD Referring Physician Endocrinology Diabetes & Metabolism 06/08/20 documented as of this encounter
--- OUTSIDE RECORDS SUMMARY | 2025-02-27 10:45 | XMS_ITS | Encounter Summary ---
Author Organization [facility] Healthcare Address [address] [place] [address] Care Team Providers Care Ad Copy Writer Name Role Phone Ann Serrano MD Unavailable [phone] Lynn Rodriguez MD Primary Care Provider Encounter Details Date Type Department Care Team (Late st Contact Info) Description 01/03/2025 Results Follow-Up [facility] Medical Group Pulmonary at [address] [place] [address] Josiah Doan [address] [place] [address] Transthoracic Echo (TTE) Complete W [...] on file Legal Sex Female 11:54 PM ENTERPRISE RESOURCE PLANNING CONSULTANT Gender Identity Female 09/19/2020 8:37 AM ENTERPRISE RESOURCE PLANNING CONSULTANT Sexual Orientation Straight 09/19/2020 8: 37 AM ENTERPRISE RESOURCE PLANNING CONSULTANT documented as of this encounter Plan of Treatment Upcoming Encounters Date Type Department Care Team (Latest Contact Info) Description 04/27/2025 7:30 AM CDT Hospital Encounter [address] [address] Ad Camacho MD [address] [facility] [address] [place] [address] 04/27/2025 7:30 AM CDT - 04/27/2025 8:00 AM CDT Surgery [address] [address] Ad Camacho MD [address] [facility] [address] [place] [address] ESOPHAGOGASTRODUODENOSCOPY Scheduled Procedures Name Priority Associated Diagnoses Date/Ti la ESOPHAGOGASTRODUODENOSCOPY Dysphagia, unspecified type 04/27/2025 7:30 AM CDT documented as of this encounter Visit Diagnoses Not on filedocumented in this encounter Care Teams Ad Copy Writer Relationship Specialty [place] [address] [address] PCP - General Internal Medicine 04/06/24 Ann Serrano MD Referring Physician Endocrinology Diabetes & Metabolism 06/08/20 documented as of this encounter
--- OUTSIDE RECORDS SUMMARY | 2025-02-27 10:45 | XMS_ITS | Encounter Summary ---
Author Organization [facility] Healthcare Address [address] [place] [address] Care Team Providers Care Senior Naval Parachutist Name Role Phone Ann Serrano MD Unavailable [phone] Lynn Rodriguez MD Primary Care Provider Encounter Details Date Type Department Care Team (Late st Contact Info) Description 01/09/2025 Results Follow-Up [facility] Medical Group Sleep Medicine at [address] [place] [address] Iqra Jensen MD [address] [place] [address] [address] [place] [address] Ferritin Social History Tobacco Use [...] on file Legal Sex Female 11:54 PM MEAT MARKET MANAGER Gender Identity Female 09/19/2020 8:37 AM MEAT MARKET MANAGER Sexual Orientation Straight 09/19/2020 8: 37 AM MEAT MARKET MANAGER documented as of this encounter Miscellaneous Notes [...] Description 04/27/2025 7:30 AM CDT Hospital Encounter [address] [address] Ad Camacho MD [address] [place] [address] [address] [place] [address] 04/27/2025 7:30 AM CDT - 04/27/2025 8:00 AM CDT Surgery [address] [address] Ad Camacho MD [address] [place] [address] [address] [place] [address] ESOPHAGOGASTRODUODENOSCOPY Scheduled Procedures Name Priority Associated Diagnoses Date/Ti mo ESOPHAGOGASTRODUODENOSCOPY Dysphagia, unspecified type 04/27/2025 7:30 AM CDT documented as of this encounter Visit Diagnoses Not on filedocumented in this encounter Care Teams Senior Naval Parachutist Relationship Specialty [place] [address] [address] PCP - General Internal Medicine 04/06/24 Ann Serrano MD Referring Physician Endocrinology Diabetes & Metabolism 06/08/20 documented as of this encounter
--- OUTSIDE RECORDS SUMMARY | 2025-02-27 10:45 | XMS_ITS | Encounter Summary ---
Author Organization [facility] Address [address] [place] [address] Phone Care Team Providers Care [employer] Executive Director Name Role Phone Kishor Saleh MD Primary Care Provider [phone] Ann Serrano MD Unavailable [phone] No, Physician Primary Care Provider [phone] Kishor Saleh MD Primary Care Provider [phone] Lynn Rodriguez MD Primary Care Provider Encounter Details Date Type Department Care Team (Late st Contact Info) Description 09/30/2017 Orders Only [facility] ProviderStephenie MD [address] [place] [address] Social History Tobacco Use Types Packs/Day Years Used Date Smoking Tobacco: Never Smokeless Tobacco: Never Alcohol Use Standard Drinks/Week Comments No 0 (1 standard drink = 0.6 oz pur e alcohol) Comments Unknown Sex and Gender Information Value Date Recorded Sex Assigned at Not on file Legal Sex Female 11:54 PM GAS FLOW REGULATOR Gender Identity Female 09/19/2020 8:37 AM GAS FLOW REGULATOR Sexual Orientation Straight 09/19/2020 8: 37 AM GAS FLOW REGULATOR documented as of this encounter Plan of Treatment Upcoming Encounters Date Type Department Care Team (Latest Contact Info) Description 04/27/2025 7:30 AM CDT Hospital Encounter [facility] [address] [place] [address] Ad Camacho MD [address] [place] [address] [address] [place] [address] 04/27/2025 7:30 AM CDT - 04/27/2025 8:00 AM CDT Surgery [facility] [address] [place] [address] Ad Camacho MD [address] [place] [address] [address], [place] [address] ESOPHAGOGASTRODUODENOSCOPY Scheduled Procedures Name Priority Associated Diagnoses Date/Ti me ESOPHAGOGASTRODUODENOSCOPY Dysphagia, unspecified type 04/27/2025 7:30 AM CDT documented as of this encounter Procedures Procedure Name Priority Date/Time Associated Diagnosis Comments DISCHARGE LABORATORY CUMULATIVE REPORT 09/30/2017 12:00 AM GAS FLOW REGULATOR documented in this encounter Results * DISCHARGE LABORATORY CUMULATIVE REPORT (09/30/2017 12:00 AM GAS FLOW REGULATOR) Narrative 09/30/2017 12:00 AM GAS FLOW REGULATOR Ordered by an unspecified provider. us Historical Provider LAB BLOOD ORDERABLES Flora l Result documented in this encounter Visit Diagnoses Not on filedocumented in this encounter Additional Health Concerns Infection Onset Date Last Indicated Resolved Time COVID: Suspected 08/13/2022 08/13/2022 08/13/2022 1:16 PM GAS FLOW REGULATOR COVID: Suspected 11/07/2024 11/07/2024 11/07/2024 2:20 PM CDT documented as of this encounter Care Teams [employer] Executive Director Relationship Specialty Start Date End Date Kishor Saleh MD PCP - General 09/28/08 11/16/23 No, Physician PCP - General 11/17/23 12/28/23 Kishor Saleh MD [address] [address] PCP - General Internal Medicine 12/29/23 04/05/24 [place] [address] [facility] [address] [address] PCP - General Internal Medicine 04/06/24 Ann Serrano MD Referring Physician Endocrinology Diabetes & Metabolism 06/08/20 documented as of this encounter
--- OUTSIDE RECORDS SUMMARY | 2025-02-27 11:49 | XMS_ITS | Clinical Summary ---
Author Organization [facility] Address [address] [place] [address] Phone Care Team Providers Care Croze Cutter Helper Name Role Phone Masoud Hayes MD Primary Care Provider [phone] Allergies Active Allergy Reactions Criticality Noted Date [...] mouth daily. 30 Tablet 3 2:47 PM ETHYLBENZENE CONVERTER OPERATOR 08/13/19 23 Active amLODIPine (NORVASC) 2.5 mg tablet Take 1 Tablet (2.5 mg) by mouth daily in the morning. 90 Tablet 3 5:55 PM CDT 05/29/20 23 Active cyclobenzaprine (FLEXERIL) 5 mg Tablet TAKE 1-2 TABLETS BY MOUTH NIGHTLY TO REDUCE MUSCLE CRAMPS 60 Tablet 3 3 3:38 PM ETHYLBENZENE CONVERTER OPERATOR 06/23/20 23 Active hydroxychloroqu ine (PLAQUENIL) 200 mg tablet TAKE 2 TABLETS BY MOUTH ONCE DAILY 60 Tablet 3 3 3:38 PM ETHYLBENZENE CONVERTER OPERATOR 06/23/20 23 Active mycophenolate mofetil (CELLCEPT) 500 mg tablet TAKE 3 TABLETS BY MOUTH TWICE DAILY 180 Tablet 4 3 3:38 PM ETHYLBENZENE CONVERTER OPERATOR 06/23/20 23 Active insulin glargine (LANTUS) 100 [...] for pain 30 Tablet 4 12:19 PM ETHYLBENZENE CONVERTER OPERATOR 04/27/20 24 Active methylPREDNISol one (Medrol, Marvel,) [...] 23 Active fluticasone propionate (FLONASE) 50 mcg/spray Hayes, Suspension nasal inhaler Administer 2 Sprays in each nostril 1 time daily as needed. 02/24/20 23 Active folic acid (FOLVITE) 1 mg tablet 05/03/20 24 Active gabapentin (NEURONTIN) 300 mg capsule 05/03/20 24 Active glucagon (BAQSIMI) 3 mg/spray Hayes, Non-Aerosol Administer 1 Hayes in each nostril. 11/17/19 24 Active insulin [...] daily. 120 Tablet 3 5 3:51 PM ETHYLBENZENE CONVERTER OPERATOR 06/17/20 24 Active tirzepatide (Mounjaro) 10 mg/0.5 mL Pen Injector Inject 10 mg under the skin every 7 days 2 mL 3 5 4:41 PM ETHYLBENZENE CONVERTER OPERATOR 07/13/20 24 Active isosorbide dinitrate (ISORDIL) 5 [...] 4 times dialy. 08/09/19 25 Active Insulin Roy, Disposable, 32 gauge x 5/32 Needle Use to inject insulin up as directed to 5 times daily. 07/13/20 24 Active lancets 33 gauge Use to check blood sugar as directed up to 4 times daily. 07/13/20 24 Active Blood-Glucose Sensor (BioCurity G7 Sensor) Device Use for continuous glucose [...] mouth daily 30 Capsule 4 12:19 PM ETHYLBENZENE CONVERTER OPERATOR 07/10/20 24 2024 Discontinued Active Problems Patient Care Coordination No te Formatting of this note migh t be different from the original. Auto Cleaner: Dr. Peraza Problem Noted Date Diagnosed Date [...] Abstract 12/29/2024 11:30 AM CDT Office Visit [facility] SOLUTION SPECIALIST Medical 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 See individual assays for performing site location. CLINICAL INFORMATION [facility] [place] Comment:None given LAST MENSTRUAL PERIOD [facility] [place] Comment:10/02/2023 PREV PAP: [facility] [place] Comment:NONE GIVEN PREV BX: [facility] [place] Comment:NONE GIVEN SOURCE [facility] [place] Comment:Endocervix ADEQUACY: [facility] [place] Comment: Satisfactory for evaluation. Endocervical/transformation zone component absent. PAP INTERP [facility] [place] Comment: Cytology Results: Negative for intraepithelial lesion or malignancy. COMMENT (PAP TEST) [facility] [place] Comment: This Pap test has been evaluated with computer assisted technology. FIRST BEATER: Ni Ramirez Comment: MEF, CT(ASCP) CT screening location: [place] [address] [place] [address] EXPLANATORY NOTE Que Roberto Ramirez Comment: EXPLANATORY [...] information. HPV E6/E7 Not Detected Not Detected [facility] [place] Comment: Methodology: Stereotype Finisher-Mediated Amplification This assay detects E6/E7 viral messenger RNA (mRNA) from 14 high-risk HPV types (16,18,31,33,35,39,45,51,52,56,58,59,66,68). Cervical sources are required for HPV testing. If a vaginal source from a patient who has had a total hysterectomy with removal of cervix was submitted, please contact the testing laboratory for alternative testing options. For additional information, please refer to http://education.Familiar/faq/PZQ667r1 (This link if provided for information/ educational purposes only.) [facility]: [facility] [address] [address] [id number] Torin Dunn MD SL Genital SWAB OF ENDOCERVIX / Unknown 05/17/2024 4:26 PM CDT 05/18/2024 3:48 AM CDT us Kendrick Teague MD PATHOLOGY/CYTOLOGY ORDERABLE S Final Result [facility] [phone] [facility] [address] [address] [phone] from Last 3 Months or Most Recently Relevant to Health Maintenance Insurance [place] [id number] RX [employer] RX Member Subscriber Plan / Payer (Ef fective 2023-Present) Name:Walt Huitron Relation to Subscriber:Self Name:Walt Huitron Subscriber ID:Not on file Payer ID:Not on file Group ID:[id number] Type:RX Commercial Address: [address] [employer] PLANS (INTERNAL) [facility] Care Teams Croze Cutter Helper Relationship Specialty Start Date End Date Masoud Hayes MD PCP - General Internal Medicine 03/08/12
--- OUTSIDE RECORDS SUMMARY | 2025-02-27 11:50 | XMS_ITS | Referral Summary ---
Author Organization [facility] Medical Office Building A Address [address] [place] [address] Care Team Providers Care Interdisciplinary Professor Name Role Phone Ann Serrano MD Unavailable [phone] Lynn Rodriguez MD Primary Care Provider Encounters Date Type Department Care Team Description 02/21/2025 Telephone [facility] Services at [address] [address] Adelina Little, PT Appointment 02/20/2025 1:00 PM CDT - 02/20/2025 11:59 PM CDT Hospital Encounter [facility] [address] [place] [address] Adam Corrales MD Postdural puncture headache [G97.1] (Primary Dx); New onset of headaches Discharge Disposition: Discharge to home or self care 02/16/2025 9:00 AM CDT Therapy [facility] at [address] [address] Adelina Little, PT Lymphedema (Primary Dx); Decreased functional mobility and endurance 02/15/2025 9:15 AM CDT Office Visit [facility] Primary Care at [facility] - [address] [place] [phone] Lynn Rodriguez MD Uncontrolled type 2 diabetes mellitus with hyperglycemia (HCC) (Primary Dx); Benign hypertension; Mixed hyperlipidemia; Morbid obesity with BMI of 50.0-59.9, adult (HCC); Moderate persistent asthma without complication; Class 3 severe obesity due to excess calories with serious comorbidity and body mass index (BMI) of 50.0 to 59.9 in adult; personnel consultant (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); Chronic hypoxic respiratory failure (HCC); Lymphedema; Sacroiliitis; Radiculopathy, lumbosacral region; Spinal stenosis of lumbar region with neurogenic claudication; Autoimmune disease 02/14/2025 12:59 PM CDT - 02/14/2025 11:59 PM CDT Hospital Encounter [facility] [address] [place] [address] Adam Corrales MD Radiculopathy, lumbosacral region [M54.17] (Primary Dx); Spinal stenosis of lumbar region with neurogenic claudication Discharge Disposition: Discharge to home or self care 02/09/2025 Orders Only [facility] Sleep Medicine at [address] [phone] Iqra Jensen MD JEREMY (obstructive sleep apnea) (Primary Dx) 02/09/2025 9:00 AM CDT Therapy [facility] at [address] [address] Adelina Little, PT Lymphedema (Primary Dx); Decreased functional mobility and endurance 02/07/2025 Plan of Care Documentation [facility] at [address] [address] 02/07/2025 12:00 PM CDT Therapy [facility] at [address] [address] Ele Vazquez, PT Lymphedema (Primary Dx); Decreased functional mobility and endurance 02/06/2025 9:30 AM CDT - 02/06/2025 11:59 PM CDT Hospital Encounter [facility] [address] [place] [address] [address] [place] [address] Amada Baldwin NP Spinal stenosis of lumbar region with neurogenic claudication (Primary Dx); Radiculopathy, lumbosacral region; Sacroiliitis; Chronic right-sided low back pain with right-sided sciatica; Uncontrolled type 2 diabetes mellitus with hyperglycemia (HCC); Morbid obesity with BMI of 50.0-59.9, adult (HCC); Benign hypertension Discharge Disposition: Discharge to home or self care 02/02/2025 3:02 PM CDT - 02/02/2025 5:37 PM CDT Emergency [facility] Emergency Department [id number] [place] [address] Sumit Yu MD Fall, initial encounter (Primary Dx) Discharge Disposition: Discharge to home or self care 02/02/2025 Telephone [facility] at [address] [address] Adelina Little, PT Appointment 02/02/2025 2:04 PM CDT - 02/02/2025 11:59 PM CDT Hospital Encounter [facility] Imaging and Radiology [address] [place] [address] Adam Corrales MD Chronic low back pain with sciatica, sciatica laterality unspecified, unspecified back pain laterality Discharge Disposition: Discharge to home or self care 01/30/2025 12:00 PM CDT Therapy [facility] at [address] [address] iTffanie Cantu, PT Lymphedema (Primary Dx); Decreased functional mobility and endurance 01/24/2025 Results Follow-Up [facility] Rheumatology [facility] 5th [place] [address] [place] [id number] Lucian Trinidad MD PhD XR Wrist Right 3 or More Views 01/24/2025 9:49 AM CDT - 01/24/2025 11:59 PM CDT Hospital Encounter [facility] [address] [place] [address] Lucian Trinidad MD PhD Cutaneous vasculitis Discharge Disposition: Discharge to home or self care 01/24/2025 10:15 AM CDT Lab [facility] [address] [place] [address] 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 9:00 AM CDT Office Visit [facility] Rheumatology [address] [facility] 5th [place] [address] [place] [address] Lucian Trinidad MD PhD Cutaneous vasculitis 01/23/2025 Telephone [facility] Gastroenterology at [address] [place] [address] Graciela Shultz 01/23/2025 12:00 PM CDT Therapy [facility] at [address] [address] Tiffanie Cantu, PT Lymphedema (Primary Dx); Decreased functional mobility and endurance 01/20/2025 2:00 PM CDT Therapy [facility] at [address] [address] Tiffanie Cantu, PT Lymphedema (Primary Dx); Decreased functional mobility and endurance 01/19/2025 7:00 PM CDT - 01/19/2025 11:59 PM CDT Hospital Encounter [facility] [address] [place] [address] Obstructive sleep apnea Discharge Disposition: Discharge to home or self care 01/18/2025 3:00 PM CDT Therapy [facility] at [address] [address] Tiffanie Cantu, PT Lymphedema (Primary Dx); Decreased functional mobility and endurance 01/11/2025 1:00 PM CDT Therapy [facility] at [address] [place] [address] Tiffanie Cantu, PT Lymphedema (Primary Dx); Decreased functional mobility and endurance 01/10/2025 12:21 PM CDT - 01/10/2025 11:59 PM CDT Hospital Encounter [facility] [address] [place] [address] Adam Corrales MD Chronic low back pain with sciatica, sciatica laterality unspecified, unspecified back pain laterality (Primary Dx); Acute right-sided low back pain with right-sided sciatica; Sacroiliitis; Radiculopathy, lumbosacral region; Chronic right-sided low back pain with right-sided sciatica Discharge Disposition: Discharge to home or self care 01/09/2025 Results Follow-Up [facility] Sleep Medicine at [address] [place] [address] Iqra Jensen MD Ferritin 01/09/2025 Results Follow-Up [facility] Endocrinology Metabolism and Lipid [address] [facility] 13th [place] [address] [place] [address] Shirley Teixeira PA Vitamin D 25 hydroxy, Vitamin B12, TSH, Additional followed-up results: 6 01/09/2025 3:10 PM CDT Lab [facility] ([facility]) [address] [place] [address] 01/09/2025 2:55 PM CDT Lab [facility] ([facility]) [address] [place] [address] Uncontrolled type 2 diabetes mellitus with hyperglycemia (HCC); Obstructive sleep apnea; Iron deficiency; Restless leg syndrome 01/09/2025 11:30 AM CDT - 01/09/2025 11:59 PM CDT Hospital Encounter [facility] [place] [facility] ([facility]) [address] [place] [address] Screening mammogram, encounter for Discharge Disposition: Discharge to home or self care 01/09/2025 10:30 AM CDT Office Visit [facility] Endocrinology Metabolism and Lipid [address] [facility] 13th [place] [address] [place] [address] Shirley Teixeira PA Uncontrolled type 2 diabetes mellitus with hyperglycemia (HCC) (Primary Dx); Benign hypertension; Mixed hyperlipidemia; Morbid obesity with BMI of 50.0-59.9, adult (HCC); half-way 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 user; personnel consultant (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); Encounter for comprehensive diabetic foot examination, type 2 diabetes mellitus (HCC) 01/06/2025 Plan of Care Documentation [facility] at [address] [address] 01/06/2025 Documentation [facility] at [address] [address] Tiffanie Cantu, PT compression script 01/06/2025 Plan of Care Documentation [facility] at [address] [address] 01/06/2025 2:00 PM CDT Therapy [facility] at [address] [address] Tiffanie Cantu, PT Lymphedema (Primary Dx); Decreased functional mobility and endurance 01/04/2025 12:00 PM CDT Therapy [facility] at [address] [address] Tiffanie Cantu, PT Lymphedema (Primary Dx); Decreased functional mobility and endurance 01/03/2025 Results Follow-Up [facility] Pulmonary at [address] [phone] Canelo Doan DO Transthoracic Echo (TTE) Complete W Doppler/CF 01/02/2025 9:30 AM CDT Office Visit [facility] Sleep Medicine at [address] [place] [phone] Iqra Jensen MD Obstructive sleep apnea (Primary Dx); Hypersomnia; Obesity, unspecified class, unspecified obesity type, unspecified whether serious comorbidity present; Iron deficiency; Restless leg syndrome 12/30/2024 Telephone [facility] Gastroenterology at [address] [place] [phone] Ad Camacho MD 12/29/2024 Plan of Care Documentation [facility] Services at [address] [address] 12/29/2024 9:00 AM CDT Therapy [facility] at [facility] [address] [facility] [address] [place] [address] Ele Vazquez PT Lymphedema (Primary Dx); Decreased functional mobility and endurance 12/23/2024 6:57 AM CDT - 12/23/2024 11:59 PM CDT Hospital Encounter [facility] Cardiology [address] [place] [address] Hypoxia Discharge Disposition: Discharge to home or self care 12/22/2024 Telephone [facility] Gastroenterology at [address], [place] [address] Alex Billings MD 12/21/2024 2:30 PM CDT Office Visit [facility] Primary Care at [address] [facility] [address], [place] [address] Lynn Rodriguez MD Acute right-sided low back [...] Films 12/13/2024 2:30 PM CDT Office Visit [facility] Pulmonary at [place] [address] [facility] [address] [place] [address] Canelo Doan DO Moderate persistent asthma without complication (Primary Dx); Class 3 severe obesity due to excess calories with serious comorbidity and body mass index (BMI) of 45.0 to 49.9 in adult; Chronic hypoxic respiratory failure (HCC); half-way 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 user 11/30/2024 3:30 PM CDT Office Visit [facility] Convenient Care at [address] [address] Trower, Minnie M., FAMILY DAY CARER Acute non-recurrent frontal sinusitis (Primary Dx) from [...] :Uncontrolled type 2 diabetes mellitus with hyperglycemia (HCC),half-way [...] NEBULIZER EVERY 6 HOURS NEEDED FOR WHEEZING (GERMAN INSTRUCTOR RECOMMENDS NOT EXCEEDING 4 VIALS/DAY) 600 [...] exertion Follow up pulmonary Impaired mobility 07/29/2024 personnel consultant (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 07/13/2024 half-way 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 user 07/13/2024 Assessment & Plan (07/13/2024 12:22 PM CLIENT SERVICE CONSULTANT): - Further complicates diabetes management Has immunity to COVID-19 virus 06/21/2021 Overview (06/30/2022): Pito vaccine 10/05/2020, Moderna booster and Pfizer bivalent booster Assessment & Plan (06/24/2021 3:28 PM CLIENT SERVICE CONSULTANT): Pito vaccine 10/05/2020 and Moderna booster Jun 2021 Major depressive disorder 04/22/2021 Assessment & Plan (01/06/2024 9:09 AM CDT): Stable on current medication regimen. Assessment & Plan (01/17/2022 10:21 AM CDT): Stable on current medication regimen. Assessment & Plan (07/17/2021 2:07 PM CLIENT SERVICE CONSULTANT): Better controlled on venlafaxine. Assessment & Plan (04/22/2021 8:25 AM CDT): Restart venlafaxine and warned of side effects and call back if any develop or if no improvement. 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 Unfortunately lab work and skin biopsy inconclusive. Discussed possible rheumatology 2nd opinion here at [facility] and patient will call back if desired. Assessment & Plan (06/15/2023 10:48 AM CLIENT SERVICE CONSULTANT): Certainly making a case for underlying vasculitis [...] condition. Assessment & Plan (06/20/2020 9:35 AM CLIENT SERVICE CONSULTANT): Unclear etiology but I am thinking of [...] tolerated Assessment & Plan (08/26/2024 6:10 PM CLIENT SERVICE CONSULTANT): Body mass index is 49.1 kg/m . BMI Follow-up includes: nutrition counseling, exercise counseling, and education provided. Assessment & Plan (07/13/2024 12:20 PM CLIENT SERVICE CONSULTANT): - Increase Mounjaro to 10 mg weekly [...] tolerated. Assessment & Plan (06/08/2023 5:23 PM CLIENT SERVICE CONSULTANT): Patient is encouraged to lose weight with a combination of caloric reduction and increased exercise. Various strategies discussed. The long-term risks associated with continued morbid obesity discussed. Assessment & Plan (09/04/2022 2:34 PM CLIENT SERVICE CONSULTANT): Patient is encouraged to lose weight with a combination of caloric reduction and increased exercise. Various strategies discussed. The long-term risks associated with continued morbid obesity discussed. Assessment & Plan (08/02/2022 12:16 PM CLIENT SERVICE CONSULTANT): Patient is encouraged to lose weight with [...] discussed. Assessment & Plan (07/13/2020 8:34 AM CLIENT SERVICE CONSULTANT): Patient is encouraged to lose weight with a combination of caloric reduction and increased exercise. Various strategies discussed. The long-term risks associated with continued morbid obesity discussed. Assessment & Plan (06/20/2020 9:35 AM CLIENT SERVICE CONSULTANT): Patient is encouraged to lose weight with a combination of caloric reduction and increased exercise. Various strategies discussed. The long-term risks associated with continued morbid obesity discussed. Assessment & Plan (07/08/2019 8:44 AM CLIENT SERVICE CONSULTANT): Patient is encouraged to lose weight with a combination of caloric reduction and increased exercise. Various strategies discussed. The long-term risks associated with continued morbid obesity discussed. Irregular menses 06/03/2019 Allergic rhinitis 07/05/2018 Assessment & Plan (02/23/2023 1:30 PM CDT): Nasal saline spray (Simply saline, Little Remedies, Boronda, Mayer) 2 second sprays or 2 squeezes into [...] daily Assessment & Plan (07/17/2021 2:07 PM CLIENT SERVICE CONSULTANT): Claritin montelukast. Assessment & Plan (04/22/2021 8:25 AM CDT): Currently using Claritin and montelukast. She has not been trying Flonase as her nose is being to congested. Recommended sinus rinses her using a hot warm shower. Could also try Afrin for few days. Assessment & Plan (07/08/2019 8:43 AM CLIENT SERVICE CONSULTANT): Add montelukast to her Claritin. She struggles with nasal sprays due to chronic congestion. Assessment & Plan (07/05/2018 9:24 AM CLIENT SERVICE CONSULTANT): Try Afrin for 3 days along with [...] mg/dL Assessment & Plan (07/13/2024 12:21 PM CLIENT SERVICE CONSULTANT): - Last LDL 103, TG 308, TC [...] triglycerides. Assessment & Plan (09/12/2023 8:12 PM CLIENT SERVICE CONSULTANT): Continue statin and optimize glycemic control Assessment & Plan (02/16/2023 8:14 PM CDT): Continue statin and optimize glycemic control Assessment & Plan (01/21/2023 9:50 AM CDT): Continue her atorvastatin and work on diet exercise and check lipids and LFTs before next visit. Assessment & Plan (08/02/2022 12:15 PM CLIENT SERVICE CONSULTANT): Well controlled on current therapy and will check a lipid panel and LFTs in 6 months. Assessment & Plan (01/17/2022 10:21 AM CDT): Well controlled on current therapy and will check a lipid panel and LFTs in 6 months. Assessment & Plan (07/17/2021 2:06 PM CLIENT SERVICE CONSULTANT): Well controlled on current therapy and will check a lipid panel and LFTs in 6 months. Assessment & Plan (06/24/2021 3:28 PM CLIENT SERVICE CONSULTANT): Continue statin and optimize glycemic control Assessment & Plan (12/19/2020 7:53 AM CDT): Continue statin and optimize glycemic control Assessment & Plan (07/13/2020 8:34 AM CLIENT SERVICE CONSULTANT): Well controlled on current therapy and will check a lipid panel and LFTs in 6 months. Assessment & Plan (06/08/2020 8:31 AM CLIENT SERVICE CONSULTANT): LDL within goal. Continue statin and optimize glycemic control Assessment & Plan (07/08/2019 8:42 AM CLIENT SERVICE CONSULTANT): Well controlled on current therapy and will check a lipid panel and LFTs in 12 months. Assessment & Plan (09/01/2018 2:22 PM CLIENT SERVICE CONSULTANT): Continue statin, optimize glycemic control Assessment & Plan (07/05/2018 9:23 AM CLIENT SERVICE CONSULTANT): Well controlled on current therapy and will check a lipid panel and LFTs in 6 months. Assessment & Plan (08/26/2017 4:27 PM CLIENT SERVICE CONSULTANT): Start atorvastatin and check lipids and LFTs in 3-4 months. Call back for results. Vitamin D deficiency 07/02/2017 Assessment & Plan (07/13/2024 12:22 PM CLIENT SERVICE CONSULTANT): - Last Vitamin D 42 (12/2023), replete [...] week Assessment & Plan (09/12/2023 8:12 PM CLIENT SERVICE CONSULTANT): Continue long-term supplement Assessment & Plan (02/16/2023 8:14 PM CDT): Continue long-term supplement Assessment & Plan (08/02/2022 12:15 PM CLIENT SERVICE CONSULTANT): Continue current supplementation and check level in 1 year. Assessment & Plan (07/17/2021 2:06 PM CLIENT SERVICE CONSULTANT): Continue current supplementation and check level in 1 year. Assessment & Plan (06/24/2021 3:29 PM CLIENT SERVICE CONSULTANT): Continue long-term supplement Assessment & Plan (12/19/2020 7:53 AM CDT): Continue long-term supplement Assessment & Plan (07/13/2020 8:33 AM CLIENT SERVICE CONSULTANT): Continue current supplementation and check level in 1 year. Assessment & Plan (06/08/2020 8:31 AM CLIENT SERVICE CONSULTANT): Vitamin-D level within goal, continue chronic supplement Assessment & Plan (07/08/2019 8:42 AM CLIENT SERVICE CONSULTANT): Continue current supplementation and check level in 1 year. Assessment & Plan (06/03/2019 8:24 AM CDT): Recently ran out of supplement, so we will restart and check her level today. Also check B12 Assessment & Plan (09/01/2018 2:22 PM CLIENT SERVICE CONSULTANT): Continue supplement Assessment & Plan (07/05/2018 9:23 AM CLIENT SERVICE CONSULTANT): Continue current supplementation and check level in 1 year. Assessment & Plan (08/26/2017 4:26 PM CLIENT SERVICE CONSULTANT): Continue current supplementation and check level in [...] Value Date HGBA1C 8.9 (A) 01/09/2025 Per [place] [employer], goal A1c is less 7% [...] Component Value Date HGBA1C 11.7 07/13/2024 Per [place] [employer], goal A1c is less 7% [...] etc. Assessment & Plan (08/26/2024 6:10 PM CLIENT SERVICE CONSULTANT): Assessment & Plan (07/13/2024 12:20 PM CLIENT SERVICE CONSULTANT): - Diabetes is complicated by hyperlipidemia, hypertension, morbid obesity and chronic steroid use. Uncontrolled. Lab Results Component Value Date HGBA1C 11.7 07/13/2024 Per [place] [employer], goal A1c is less 7% [...] in prescriptions for both Dexcom G7 and JuxinliStyle Silva 3 CGM for mcmillan checking. Also [...] Return visit 3 months to see the FAMILY DAY CARER/PA, 6 months to see me. Assessment & [...] Component Value Date HGBA1C 12.5 11/17/2023 Per [place] [employer], goal A1c is less 7% [...] that I am available via phone or [employer]amp[employer] if they have any concerns for hypo/hyperglycemia, medication refills, etc. Assessment & Plan (11/18/2023 8:23 AM CDT): - Diabetes is complicated by HTN, HLD, steroid use, hyperglycemia and obesity. Uncontrolled. Lab Results Component Value Date HGBA1C 12.5 11/17/2023 Per [place] [employer], goal A1c is less 7% without significant hypoglycemia. - Management Goal: re-start and adherence to medication regimen - Continue current medication regimen at this time. - Patient called local pharmacy to confirm that they do have prescriptions for her Semglee. She is going to pepper picker today after this visit. - Insurance [...] etc. Assessment & Plan (09/12/2023 8:13 PM CLIENT SERVICE CONSULTANT): Very high glucoses; multifactorial including steroid therapy, [...] daily. Assessment & Plan (06/24/2021 3:29 PM CLIENT SERVICE CONSULTANT): Much improved but needs a little more basal insulin. Assessment & Plan (12/19/2020 7:53 AM CDT): Multiple medications, but now requires insulin. We can gradually adjust her Lantus based on her clinical response. Assessment & Plan (06/08/2020 8:32 AM CLIENT SERVICE CONSULTANT): Glucoses somewhat better now that she is [...] motivator. Assessment & Plan (07/08/2019 8:43 AM CLIENT SERVICE CONSULTANT): Continue increased dose of Ozempic and also continue Invokana. Importance of dietary changes increase exercise weight loss discussed. Follow-up with her construction engineer as they direct. Assessment & Plan (06/03/2019 8:25 AM CDT): Somewhat suboptimal, would benefit from increasing Ozempic and continuing efforts with diet and lifestyle. Needs follow-up labs Assessment & Plan (09/01/2018 2:22 PM CLIENT SERVICE CONSULTANT): Glucoses a little high, but she has bruising with Victoza so she may benefit by changing to weekly Ozempic, which is a little stronger, as well. Jardiance is been ineffective, so we may need to provide preauthorization for Invokana Assessment & Plan (07/05/2018 9:23 AM CLIENT SERVICE CONSULTANT): A1c above goal. We stressed importance of increased exercise, reduce calories, weight loss. Could consider switching Victoza to ozempic. Otherwise does not tolerate metformin or sulfonylureas. May need insulin soon. She is directed to follow up with her construction engineer more quickly than her next scheduled appointment in November. Assessment & Plan (08/26/2017 4:26 PM CLIENT SERVICE CONSULTANT): Continue current medication regimen and follow up with her construction engineer as they direct. Low carb diet weight [...] mmHg Assessment & Plan (07/13/2024 12:21 PM CLIENT SERVICE CONSULTANT): - Above goal today - Encouraged her [...] monitor. Assessment & Plan (06/08/2023 5:25 PM CLIENT SERVICE CONSULTANT): Stop amlodipine with current issues of swelling. Pressure currently well controlled and should monitor at home Assessment & Plan (01/21/2023 9:49 AM CDT): Blood pressure well controlled on lisinopril Assessment & Plan (09/04/2022 2:34 PM CLIENT SERVICE CONSULTANT): Blood pressure well controlled on her lisinopril. Assessment & Plan (08/02/2022 12:15 PM CLIENT SERVICE CONSULTANT): Increase lisinopril to 20 mg daily. Monitor blood pressure at home call back if no improvement. Assessment & Plan (01/17/2022 10:21 AM CDT): Well controlled on the current regimen. Avoidance of salt, proper body weight, and routine exercise recommended. Assessment & Plan (07/17/2021 2:06 PM CLIENT SERVICE CONSULTANT): Well controlled on the current regimen. Avoidance of salt, proper body weight, and routine exercise recommended. Assessment & Plan (04/22/2021 8:24 AM CDT): Well controlled on the current regimen. Avoidance of salt, proper body weight, and routine exercise recommended. Assessment & Plan (07/13/2020 8:34 AM CLIENT SERVICE CONSULTANT): Well controlled on the current regimen. Avoidance of salt, proper body weight, and routine exercise recommended. Assessment & Plan (07/08/2019 8:42 AM CLIENT SERVICE CONSULTANT): Well controlled on the current regimen. Avoidance of salt, proper body weight, and routine exercise recommended. Assessment & Plan (09/01/2018 2:21 PM CLIENT SERVICE CONSULTANT): Blood pressure close to target, working on diet and lifestyle Assessment & Plan (07/05/2018 9:23 AM CLIENT SERVICE CONSULTANT): Well controlled on the current regimen. Avoidance of salt, proper body weight, and routine exercise recommended. Assessment & Plan (08/26/2017 4:25 PM CLIENT SERVICE CONSULTANT): Well controlled on the current regimen. Avoidance [...] montelukast Assessment & Plan (08/26/2024 6:08 PM CLIENT SERVICE CONSULTANT): Recent exacerbation due to CAP followed by RSV Symptoms improved Continue present plan and medication--albuterol prn, montelukast Assessment & Plan (07/13/2020 8:36 AM CLIENT SERVICE CONSULTANT): Doing well on her Symbicort. Okay to discontinue and use albuterol only as needed. Restart Symbicort if uses her albuterol more than 2 times a week. Obstructive sleep apnea 04/01/2012 Overview (11/12/2017): Description: CPAP Assessment & Plan (01/06/2024 9:08 AM CDT): Patient is compliant with the CPAP machine and gets symptomatic relief. Assessment & Plan (08/02/2022 12:15 PM CLIENT SERVICE CONSULTANT): Patient is compliant with the CPAP machine and gets symptomatic relief. Assessment & Plan (07/17/2021 2:06 PM CLIENT SERVICE CONSULTANT): Repeat sleep study confirmed obstructive sleep apnea [...] syndrome. Assessment & Plan (07/13/2020 8:34 AM CLIENT SERVICE CONSULTANT): Patient is compliant with the CPAP machine and gets symptomatic relief. Assessment & Plan (07/08/2019 8:42 AM CLIENT SERVICE CONSULTANT): Patient is compliant with the CPAP machine and gets symptomatic relief. Female infertility associated with anovulation 0 09/21/2011 Resolved Problems Problem Noted Date Diagnosed Date Resolved Date Decreased functional mobility and endurance 12/29/2024 02/15/2025 Uncontrolled diabetes mellit us with hyperglycemia 08/14/2024 12/21/2024 Acute hypoxic respiratory failure 08/13/2024 12/21/2024 Assessment & Plan (08/26/2024 6:09 PM CLIENT SERVICE CONSULTANT): Recent hospitalization likely for CAP followed by [...] legs Assessment & Plan (06/15/2023 10:47 AM CLIENT SERVICE CONSULTANT): Improved after addition of doxycycline to her Bactrim. Call back if symptoms worsen after doxycycline runs out Assessment & Plan (06/08/2023 5:25 PM CLIENT SERVICE CONSULTANT): Seems like cellulitis slow to improve either [...] 12/21/2024 Assessment & Plan (09/04/2022 2:35 PM CLIENT SERVICE CONSULTANT): No signs of neurological abnormality on examination [...] Continue other medications as directed by her construction engineer. Diet exercise discussed. Hopefully may be able to wean prednisone in the near future as well. Assessment & Plan (06/15/2023 10:48 AM CLIENT SERVICE CONSULTANT): She knows that the steroids will exacerbate her hyperglycemia and should be in contact with her construction engineer for management. Assessment & Plan (06/08/2023 5:26 PM CLIENT SERVICE CONSULTANT): Poor control of her diabetes prior to this hospitalization and even worse now on prednisone. Follow-up with her construction engineer for management. Diet exercise weight loss recommended. Assessment & Plan (01/21/2023 9:50 AM CDT): Blood sugars remain above goal. Hopefully the recent addition of mounjaro will help significantly. Discuss up titration of this and her mealtime insulin with her construction engineer. Diet exercise discussed. Check A1c and fasting blood sugar before next visit. Assessment & Plan (08/02/2022 12:16 PM CLIENT SERVICE CONSULTANT): A1c poorly controlled. Importance of diet exercise weight loss discussed at length. Continue her Ozempic and insulin and needs to contact her construction engineer soon as possible for guidance on further therapy. Assessment & Plan (01/17/2022 10:22 AM CDT): Patient aware A1c grossly uncontrolled. Must work on diet exercise and weight loss. She has to get back on her insulin and should discuss this today with her construction engineer. Risks posed her health with poor glycemic control discussed. Assessment & Plan (07/13/2020 8:34 AM CLIENT SERVICE CONSULTANT): A1c above goal. Importance of diet exercise weight loss discussed. Continue current medication regimen and follow-up with her construction engineer as they direct. Dyslipidemia 06/03/2019 07/13/2020 Healthcare [...] yearly. Colonoscopy due March 2027. Follow-up the software product specialist for breast exam pelvic exam as they direct. Will see her back in about 6 months sooner if needed. Assessment & Plan (08/02/2022 12:17 PM CLIENT SERVICE CONSULTANT): Flu shot each May. Tetanus booster every 10 years. Pneumovax completed. COVID booster recommended. Mammogram yearly. Colonoscopy due March 2027. Follow-up the software product specialist for breast exam pelvic exam as they direct. Will see her back in 6 months with lab sooner if needed. Assessment & Plan (07/17/2021 2:08 PM CLIENT SERVICE CONSULTANT): Flu shot each May. Tetanus booster every 10 years. Pneumovax completed. COVID vaccine completed. Mammogram yearly. Colonoscopy ordered and she should verify coverage before proceeding. Follow-up the software product specialist for breast exam and pelvic exam as they direct. We will see her back in 1 year for physical and fasting lab sooner if needed. Assessment & Plan (07/13/2020 8:35 AM CLIENT SERVICE CONSULTANT): Flu shot each May. Tetanus booster every 10 years. She has had a Pneumovax. Mammogram was abnormal back in August and she has delayed follow-up studies until now and she is urged to get her diagnostic and ultrasound studies done at her earliest convenience and she is aware of the risks posed her health with delay in proceeding. Follow-up the software product specialist for breast exam and pelvic exam as they direct. We will see her back in 1 year for wellness visit fasting lab sooner if needed. Assessment & Plan (07/08/2019 8:43 AM CLIENT SERVICE CONSULTANT): Flu shot each May. Tetanus booster every 10 years. Mammogram ordered. Will see her back in 1 year for physical and fasting lab sooner if needed. Assessment & Plan (07/05/2018 9:24 AM CLIENT SERVICE CONSULTANT): Tetanus booster today. Flu shot each May. Mammogram ordered. Patient should follow-up the software product specialist breast exam and pelvic exam. We will see her back in 1 year for wellness visit fasting lab sooner if needed. Assessment & Plan (08/26/2017 4:27 PM CLIENT SERVICE CONSULTANT): Flu shot each May. Tetanus booster every 10 years. See her software product specialist for breast exam mammogram and Pap [...] aerobics Assessment & Plan (08/26/2017 4:28 PM CLIENT SERVICE CONSULTANT): Patient is encouraged to lose weight with [...] Unspecified 05/16/2021,2020,04/22/2021(Defer red: Patient Refused),03/19/2021(Deferred: Patient Refused),05/12/2019,05/07/2017 Next 1 Interactive (J&J) SARS-CoV-2 Vaccination 10/05/2020 Pneumococcal Conjugate Pcv20 [...] on file Legal Sex Female 11:54 PM CLIENT SERVICE CONSULTANT Gender Identity Female 09/19/2020 8:37 AM CLIENT SERVICE CONSULTANT Sexual Orientation Straight 09/19/2020 8: 37 AM CLIENT SERVICE CONSULTANT Last Filed Vital Signs Vital Sign Reading [...] Description 04/27/2025 7:30 AM CDT Hospital Encounter [address] [address] Ad Camacho MD [address] [facility] [place] [address] 04/27/2025 7:30 AM CDT - 04/27/2025 8:00 AM CDT Surgery [address] [address]Ad Garcia MD [address] [facility] [place] [address] ESOPHAGOGASTRODUODENOSCOPY Scheduled Procedures Name Priority Associated Diagnoses [...] Maintenance Results * Imaging Epidural Blood Patch (52671) (02/20/2025 2:32 PM CDT) Narrative RAD_PACS_[facility] - 02/20/2025 2:33 PM CDT The images from this study are not interpreted by Radiology. Please refer to the physician's procedure / OR operative note. us Adam Corrales MD IMG PAIN MGMT PROCEDU RES Final Result RAD_PACS_[facility] * LALO ab ql w/rflx to LALO qn (02/15/2025 10:41 AM CDT) LALO, qual NEGATIVE NEGATIVE [facility] Comment: LALO IFA is a first line [...] AC-0: Negative International Consensus on LALO Patterns (https://doi.org/10.1515/hhnl-7165-3549) For additional information, please refer to http://education.Qraved/faq/TAN866 (This link is being provided for informational/ educational purposes only.) Blood 02/15/2025 10:4 1 AM CDT 02/15/2025 10:43 AM CDT Narrative [facility] - 02/21/2025 7:05 PM CDT FASTING:YES FASTING: YES Lucian Trinidad MD PhD LAB BLOOD ORDERABLE S Final Result Performing Organization Address [facility] de Phone Number [facility] [address] [place] [address] * Anti-double stranded DNA abs (02/15/2025 10:41 AM CDT) Pathologist [facility] DNA (DS) ab <1 IU/mL [facility] Comment: IU/mL Interpretation < or = 4 Negative 5-9 Indeterminate > or = 10 Positive Blood 02/15/2025 10:4 1 AM CDT 02/15/2025 10:43 AM CDT Narrative [facility] - 02/21/2025 7:05 PM CDT FASTING:YES FASTING: YES Lucian Trinidad MD PhD LAB BLOOD ORDERABLE S Final Result Performing Organization Address [facility] Co de Phone Number [facility] [address] [place] [address] * NOTE (02/15/2025 10:41 AM CDT) Note [...] ORDERABLE S Final Result Performing Organization Address [facility] de Phone Number [facility] [address] [place] [address] * C4 complement (02/15/2025 10:41 AM CDT) Complement component C4C 24 15 - 57 mg/dL [facility] Blood 02/15/2025 10:4 1 AM CDT 02/15/2025 10:43 AM CDT Narrative [facility] - 02/21/2025 7:05 PM CDT FASTING:YES FASTING: YES Lucian Trinidad MD PhD LAB BLOOD ORDERABLE S Final Result Performing Organization Address [facility] Phone Number [facility] [address] [place] [address] * PR3 - proteinase 3, Ab (02/15/2025 10:41 AM CDT) Proteinase-3 ab <1.0 [facility] Comment: Value Interpretation ----- <1.0 No Antibody Detected > or = 1.0 Antibody Detected Autoantibodies to proteinase-3 (MA-3) are accepted as characteristic for granulomatosis with polyangiitis (GPA, Brent's), and are detectable in 95% of the histologically proven cases. The cytoplasmic IFA pattern, (c-ANCA), is based largely on autoantibody to MA-3 which serves as the primary antigen. These autoantibodies are present in active disease. Blood 02/15/2025 10:4 1 AM CDT 02/15/2025 10:43 AM CDT Narrative [facility] - 02/21/2025 7:05 PM CDT FASTING:YES FASTING: YES Lucian Trinidad MD PhD LAB BLOOD ORDERABLE S Final Result Performing Organization Address [facility] de Phone Number [facility] [address] [place] [address] * MPO - myeloperoxidase antibody (02/15/2025 10:41 AM CDT) MYELOPEROXIDASE ANTIBODY <1.0 AI [facility] Comment: Value Interpretation ----- <1.0 No Antibody [...] ORDERABLE S Final Result Performing Organization Address [facility] de Phone Number [facility] [address] [place] [address] * (ABNORMAL) Urinalysis reflex to microscopic (02/15/2025 10:41 AM CDT) Color, ur YELLOW YELLOW [facility] Appearance, ur CLOUDY(A) CLEAR [facility] Specific gravity 1.039(H) 1.001 - 1.035 [facility] pH, ur < OR = 5.0(A) 5.0 - 8.0 [facility] Glucose, ur 2+(A) NEGATIVE [facility] Bilirubin, ur NEGATIVE NEGATIVE [facility] Ketones, ur TRACE(A) NEGATIVE [facility] Blood, ur 1+(A) NEGATIVE [facility] Protein, ur, quant 1+(A) NEGATIVE [facility] Nitrites, ur NEGATIVE NEGATIVE [facility] Leukocyte esterase, ur NEGATIVE NEGATIVE [facility] WBC, ur NONE SEEN < OR = 5 /HPF [facility] RBC, ur NONE SEEN < OR = 2 /HPF [facility] Epithelial cells, squamous, ur 20-40(A) < OR = 5 /HPF [facility] Bacteria, ur, quant FEW(A) NONE SEEN /HPF [facility] Hyaline cast NONE SEEN NONE SEEN /LPF [facility] Yeast, ur MANY(A) NONE SEEN /HPF [facility] Urine 02/15/2025 10:4 1 AM CDT 02/15/2025 10:43 AM CDT Narrative [facility] - 02/21/2025 7:05 PM CDT FASTING:YES FASTING: YES us Lucian Trinidad MD PhD LAB URINE ORDERABLE S Final Result [facility] [address] [place] [address] * (ABNORMAL) CBC with auto differential (02/15/2025 [...] BLOOD ORDERABLE S Final Result [facility] [address] [address] * Cyclic citrul peptide antibody, IgG (02/15/2025 10:41 AM CDT) [facility] Cyclic citrullinated peptide ab, IgG <16 UNITS [facility] Comment: Reference Range Negative: <20 Weak Positive: 20-39 Moderate Positive: 40-59 Strong Positive: >59 Blood 02/15/2025 10:4 1 AM CDT 02/15/2025 10:43 AM CDT Narrative [facility] - 02/21/2025 7:05 PM CDT FASTING:YES FASTING: YES Lucian Trinidad MD PhD LAB BLOOD ORDERABLE S Final Result Performing Organization Address [facility] Co de Phone Number [facility] [address] [place] [address] * (ABNORMAL) Protein / creatinine ratio, urine, [...] ORDERABLE S Final Result Performing Organization Address [facility] Co de Phone Number [facility] [address] [place] [address] * Cryoglobulin, Serum and Plasma (02/15/2025 10:41 [...] ORDERABLE S Final Result Performing Organization Address [facility] Co de Phone Number [facility] [address] [place] [address] * Aldolase (02/15/2025 10:41 AM CDT) ALDOLASE 6.6 < OR = 8.1 U/L [facility] Blood 02/15/2025 10:4 1 AM CDT 02/15/2025 10:43 AM CDT Narrative [facility] - 02/21/2025 7:05 PM CDT FASTING:YES FASTING: YES us Lucian Trinidad MD PhD LAB BLOOD ORDERABLE S Final Result Performing Organization Address [facility] de Phone Number [facility] [address] [place] [address] * Erythrocyte sedimentation rate (02/15/2025 10:41 AM CDT) Erythrocyte sedimentation rate 6 < OR = 20 mm/h [facility] Blood 02/15/2025 10:4 1 AM CDT 02/15/2025 10:43 AM CDT Narrative [facility] - 02/21/2025 7:05 PM CDT FASTING:YES FASTING: YES Lucian Trinidad MD PhD LAB BLOOD ORDERABLE S Final Result Performing Organization Address [facility] de Phone Number [facility] [address] [place] [address] * Rheumatoid factor (02/15/2025 10:41 AM CDT) Rheumatoid factor, quant <10 <14 IU/mL [facility] Blood 02/15/2025 10:4 1 AM CDT 02/15/2025 10:43 AM CDT Narrative [facility] - 02/21/2025 7:05 PM CDT FASTING:YES FASTING: YES Lucian Trinidad MD PhD LAB BLOOD ORDERABLE S Final Result Performing Organization Address [facility] de Phone Number [facility] [address] [place] [address] * C3 complement (02/15/2025 10:41 AM CDT) Pathologist [facility] Complement component C3C 188 83 - 193 mg/dL [facility] Blood 02/15/2025 10:4 1 AM CDT 02/15/2025 10:43 AM CDT Narrative [facility] - 02/21/2025 7:05 PM CDT FASTING:YES FASTING: YES Lucian Trinidad MD PhD LAB BLOOD ORDERABLE S Final Result Performing Organization Address [facility] Phone Number [facility] [address] [place] [address] * CRP (cardiac risk) (02/15/2025 10:41 AM CDT) Pathologist [facility] hsCRP 2.9 mg/L [facility] Comment: Reference Range Optimal <1.0 Yobani [...] for Disease Control and Prevention and the [place] [employer]. Circulation 2003; 107(3): 499-511. Blood 02/15/2025 10:4 1 AM CDT 02/15/2025 10:43 AM CDT Narrative [facility] - 02/21/2025 7:05 PM CDT FASTING:YES FASTING: YES Lucian Trinidad MD PhD LAB BLOOD ORDERABLE S Final Result Performing Organization Address [facility]/ZIP Co de Phone Number PILO [facility] [address] [place] [address] * Creatine kinase (CK), total (02/15/2025 10:41 AM CDT) CK 82 20 - 239 U/L [facility] Blood 02/15/2025 10:4 1 AM CDT 02/15/2025 10:43 AM CDT Narrative [facility] - 02/21/2025 7:05 PM CDT FASTING:YES FASTING: YES Lucian Trinidad MD PhD LAB BLOOD ORDERABLE S Final Result Performing Organization Address [facility] de Phone Number [facility] [address] [place] [address] * (ABNORMAL) Comprehensive metabolic panel (02/15/2025 10:41 [...] ORDERABLE S Final Result Performing Organization Address [facility]/ZIP Co de Phone Number [facility] [address] [place] [address] * Imaging Lumbar/Caudal Epidural Steroid INJ (30316) (02/14/2025 1:38 PM CDT) Narrative [facility]_PACS[facility] - 02/14/2025 1:38 PM CDT The images from this study are not interpreted by Radiology. Please refer to the physician's procedure / OR operative note. us Amada Baldwin FAMILY DAY CARER IMG PAIN MGMT PROCEDURE S Final Result Performing Organization Address City/[facility]/ZIP Co de Phone Number RAD_PACS_[facility] * MRI [...] PhD LAB BLOOD ORDERABLE S Final Result [facility] [place] [address] * XR Hand Right 3 or More [...] Antibodies against the following antigens: Ashly-1 Ab, SHANK TURNER Ab, Scl-70 Ab, Bradshaw Ab, SS-A/Ro Ab, and SS- B/La Ab. Further testing for dsDNA, Centromere, or Ribosomal P antibodies is suggested in patient with a positive screen and negative specific antibodies. Current interpretive data was last revised on 2023. Blood 01/24/2025 9:41 AM CDT 01/24/2025 10:43 AM CDT us Lucian Trinidad MD PhD LAB BLOOD ORDERABLE S Final Result [facility] Department [place] [address] * Anti-Neutrophilic Cytoplasmic Antibody (ANCA) with Reflex to MPO and PR3 Abs (01/24/2025 9:41 AM CDT) ANCA Negative Blood 01/24/2025 9:41 AM CDT 01/24/2025 10:43 AM CDT Lucian Trinidad MD PhD LAB BLOOD ORDERABLE S Final Result Performing Organization Address City/[facility]/ZIP Co de Phone Number SALMA RUIZ [facility] [place] [address] * Neuromuscular Testing Blood (01/24/2025 12:00 AM CDT) Blood (Serum) 01/24/2025 01/25/2025 Narrative NEUROMUSCULAR CLINICAL LABORATORY - 02/06/2025 4:56 PM CDT Please click on the PDF link to view the report containing this result Lucian Trinidad MD PhD LAB PATHOLOGY ORDER DAVI Final Result Performing Organization Address City/[facility]/ZIP Co de Phone Number NEUROMUSCULAR CLINICAL LABORATORY Room [address] [place] [address] * eGFR (01/09/2025 12:30 PM CDT) eGFR [...] CHUN LAB BLOOD ORDERABLES Flora nile Result [facility] [place] [address] * (ABNORMAL) Differential, auto (01/09/2025 12:30 PM CDT) Neutrophil abs 10.98(H) 1.50 - 6.50 K/cumm Imm gran abs 0.13(H) 0.00 - 0.10 K/cumm [facility] Lymphocyte abs 1.66 0.80 - 3.30 K/cumm [facility] Monocyte abs 1.29(H) 0.20 - 0.80 K/cumm [facility] Eosinophil abs 0.05 0.00 - 0.50 K/cumm [facility] Basophil abs 0.06 0.00 - 0.10 K/cumm [facility] Neutrophil pct 77.5 % [facility] Comment: Interpretive Data Percent cell count reference ranges are not reported, since discordance with absolute values may lead to misinterpretation of CBC data. Current Interpretive Data was last revised on 2017. Imm gran pct 0.9 % [facility] Comment: Interpretive Data Percent cell count reference ranges are not reported, since discordance with absolute values may lead to misinterpretation of CBC data. Current Interpretive Data was last revised on 2017. Lymphocyte pct 11.7 % [facility] Comment: Interpretive Data Percent cell count reference ranges are not reported, since discordance with absolute values may lead to misinterpretation of CBC data. Current Interpretive Data was last revised on 2017. Monocyte pct 9.1 % [facility] Comment: Interpretive Data Percent cell count reference ranges are not reported, since discordance with absolute values may lead to misinterpretation of CBC data. Current Interpretive Data was last revised on 2017. Eosinophil pct 0.4 % [facility] Comment: Interpretive Data Percent cell count reference ranges are not reported, since discordance with absolute values may lead to misinterpretation of CBC data. Current Interpretive Data was last revised on 2017. Basophil pct 0.4 % [facility] Comment: Interpretive Data Percent cell count reference ranges are not reported, since discordance with absolute values may lead to misinterpretation of CBC data. Current Interpretive Data was last revised on 2017. Blood 01/09/2025 12:3 0 PM CDT 01/09/2025 1:18 PM CDT us Shirley CHUN LAB BLOOD ORDERABLES Flora dowd Result [facility] [place] [address] * (ABNORMAL) CBC with auto differential (01/09/2025 12:30 PM CDT) WBC 14.17(H) 3.80 - 9.90 K/cumm Hgb 12.2 11.9 - 15.5 g/dL [facility] Hct 38.2 35.6 - 45.5 % [facility] Plt 417(H) 150 - 400 K/cumm [facility] MPV 10.2 9.1 - 12.3 fL [facility] RBC 4.21 3.90 - 5.20 M/cumm [facility] MCV 90.7 81.3 - 96.4 fL [facility] MCH 29.0 27.1 - 33.3 pg [facility] MCHC 31.9(L) 32.3 - 35.7 g/dL [facility] RDW CV 16.4(H) 11.1 - 14.9 % [facility] RDW SD 54.8(H) 35.7 - 48.1 fL [facility] NRBC abs 0.00 0.00 - 0.01 K/cumm [facility] Blood 01/09/2025 12:3 0 PM CDT 01/09/2025 1:18 PM CDT Shirley CHUN LAB BLOOD ORDERABLES Flora l Result Performing Organization Address City/[facility]/ZIP Co de Phone Number [facility] [place] [address] * Albumin Creatinine Ratio, Urine (01/09/2025 12:30 PM CDT) Albumin Ur 37.8 mg/L Comment: Interpretive Data No reference range established. Current interpretive data was last revised 2018. Creatinine Ur 353.8 mg/dL [facility] Comment: Interpretive Data No reference range established. Current interpretive data was last revised 2018. Albumin Creatinine Ratio, Ur 11 1 - 29 mg/g [facility] Urine 01/09/2025 12:3 0 PM CDT 01/09/2025 1:18 PM CDT Shirley CHUN LAB URINE ORDERABLES Flora l Result Performing Organization Address City/[facility]/ZIP Co de Phone Number [facility] [place] [address] * Vitamin D 25 hydroxy (01/09/2025 12:30 PM CDT) Vitamin D 25-OH 38 30 - 80 ng/mL Blood 01/09/2025 12:3 0 PM CDT 01/09/2025 1:18 PM CDT Shirley CHUN LAB BLOOD ORDERABLES Flora l Result [facility] [place] [address] * TSH (01/09/2025 12:30 PM CDT) Thyroid Stimulating Hormone 1.92 0.30 - 4.20 mcIUnit/mL Blood 01/09/2025 12:3 0 PM CDT 01/09/2025 1:18 PM CDT Shirley CHUN LAB BLOOD ORDERABLES Flora l Result Performing Organization Address [facility] de Phone Number [facility] [place] [address] * Ferritin (01/09/2025 12:30 PM CDT) Pathologist [facility] Ferritin 42 13 - 150 ng/mL Blood 01/09/2025 12:3 0 PM CDT 01/09/2025 1:18 PM CDT Result [facility] Iqra Jensen MD LAB BLOOD ORDERABLES Final Resul t Performing Organization Address [facility] de Phone Number [facility] [place] [address] * Vitamin B12 (01/09/2025 12:30 PM CDT) Pathologist [facility] Vitamin B12 415 230 - 1,250 pg/mL Blood 01/09/2025 12:3 0 PM CDT 01/09/2025 1:18 PM CDT Result [facility] Shirley CHUN LAB BLOOD ORDERABLES Flora l Result Performing Organization Address [facility] de Phone Number [facility] [place] [address] * (ABNORMAL) Lipid panel (01/09/2025 12:30 PM CDT) Pathologist [facility] Cholesterol 260(H) 30 - 199 mg/dL Comment: [...] revised on 2018. Triglycerides 334(H) <=149 mg/dL [facility] Comment: Interpretive Data Ages < or [...] revised on 2018. HDL 75 >=40 mg/dL [facility] Comment: Interpretive Data Ages < or [...] on 2018. LDL, calculated 127 <=129 mg/dL [facility] Comment: Interpretive Data Ages < or [...] revised on 2024. Non-HDL Cholesterol 185 mg/dL [facility] Comment: Interpretive Data Ages < or [...] last revised on 2018. Chol/HDL ratio 3 [facility] Blood 01/09/2025 12:3 0 PM CDT 01/09/2025 1:18 PM CDT Shirley CHUN LAB BLOOD ORDERABLES Flora dowd Result [facility] [place] [address] * (ABNORMAL) Comprehensive metabolic panel (01/09/2025 12:30 PM CDT) Sodium 139 135 - 145 mmol/L Potassium, pl 4.4 3.3 - 4.9 mmol/L [facility] Chloride 99 97 - 110 mmol/L [facility] CO2 27 22 - 32 mmol/L [facility] Anion gap 13 2 - 15 mmol/L [facility] BUN 22 6 - 25 mg/dL [facility] Creatinine 0.74 0.60 - 1.10 mg/dL [facility] Glucose 314(H) 70 - 199 mg/dL [facility] [...] Calcium 9.2 8.5 - 10.3 mg/dL [facility] Bilirubin, total 0.3 0.1 - 1.2 mg/dL [facility] Protein, pl 6.7 6.5 - 8.5 g/dL [facility] Albumin 4.0 3.5 - 5.0 g/dL [facility] Alk phos 54 40 - 130 Units/L [facility] ALT 69(H) 7 - 45 Units/L [facility] AST 25 10 - 45 Units/L [facility] Blood 01/09/2025 12:3 0 PM CDT 01/09/2025 1:18 PM CDT Shirley CHUN LAB BLOOD ORDERABLES Flora nile Result [facility] [place] [address] * Screening Mammogram Bilateral W Vincenzo (01/09/2025 [...] AM CDT Narrative 12/23/2024 9:46 AM CDT [address] [address] Echocardiogram Report Patient Name: WALT HUITRON : 1975 Study Date: 12/23/2024 7:09:04 AM Gender: F Tech: [employer] Location: Echo Lab 1 Ref Provider: CANELO [...] Procedure Note German Weathers MD - 12/23/[address] [address] Echocardiogram Report Patient Name: WALT HUITRON : 1975 Study Date: 12/23/2024 7:09:04 AM Gender: F Tech: [employer] Location: Echo Lab 1 Ref Provider: CANELO DOAN Height(Cm): 168 BSA: 2.6 Weight(Kg): 145.1 Quality: Adequate Order Provider: CANELO DAON PROCEDURES: Echocardiographic Report: Transthoracic echocardiogram with complete [...] Exam (11/10/2022) us Generic External Data Provider [facility] Final Result * COLONOSCOPY (04/02/2022 9:28 AM CDT) Anatomical Region Laterality Modality Other Narrative Procedure Note Ad Camacho MD - 04/02/2022 9:28 AM CDT [facility] Patient Name: Walt Huitron Procedure Date: 04/02/2022 9:28 AM Date of : 1975 Admit Type: Outpatient Age: 46 Gender: Female Attending MD: Ad Camacho M.D. Room: [facility] ENDOSCOPY ROOM 2 Note Status: Finalized [...] scope was passed under direct vision. TheColonoscope [id number] was introduced through the anus and advanced [...] 9:28 AM Procedure Code(s): --- Professional --- 51368, Colonoscopy, flexible; with biopsy, single or multiple Diagnosis Code(s): --- Professional --- Z12.11, Encounter for screening for malignant neoplasm of colon D12.3, Benign neoplasm of transverse colon (hepatic flexure orsplenic flexure) D12.4, Benign neoplasm of descending colon D12.8, Benign neoplasm of rectum CPT copyright 2020 [employer]. All rights reserved. The codes documented in this report are preliminary and upon meter/relay technician reviewmay be revised to meet current compliance requirements. Recognized by the [employer] for promoting quality in endoscopy Ad Camacho MD ENDOSCOPY PROCEDURES Final Resul t * Diabetic Foot Exam (03/26/2021) Impressions Art Staley MA - 03/26/2021 In care everywhere Historical Provider HEALTH MAINTENANCE Final Result from Last 3 Months or Most Recently Relevant to Health Maintenance Insurance [facility] Advance Directives For more information, please contact: [phone] * Full Code (Latest Code Status on File) Date Activated Date Inactivated Comments 04/02/2022 9:27 AM 04/02/2022 4:47 PM * Full Code Date Activated Date Inactivated Comments 04/02/2022 9:27 AM 04/02/2022 9:27 AM Care Teams Interdisciplinary Professor Relationship Specialty [place] [id number] [address] PCP - General Internal Medicine 04/06/24 Ann Serrano MD Referring Physician Endocrinology Diabetes & Metabolism 06/08/20
--- OUTSIDE RECORDS SUMMARY | 2025-02-27 11:50 | XMS_ITS | Clinical Summary ---
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 Assessment & Plan (01/17/2022 10:21 AM CDT): Stable on current medication regimen. Assessment & Plan (07/17/2021 2:07 PM PERINATAL SPECIALIST): Better controlled on venlafaxine. Assessment & [...] Discussed possible rheumatology 2nd opinion here at [facility] and patient will call back if desired. Assessment & Plan (06/15/2023 10:48 AM PERINATAL SPECIALIST): Certainly making a case for underlying [...] condition. Assessment & Plan (06/20/2020 9:35 AM PERINATAL SPECIALIST): Unclear etiology but I am thinking [...] tolerated Assessment & Plan (08/26/2024 6:10 PM PERINATAL SPECIALIST): Body mass index is 49.1 kg/m . BMI Follow-up includes: nutrition counseling, exercise counseling, and education provided. Assessment & Plan (07/13/2024 12:20 PM PERINATAL SPECIALIST): - Increase Mounjaro to 10 mg [...] tolerated. Assessment & Plan (06/08/2023 5:23 PM PERINATAL SPECIALIST): Patient is encouraged to lose weight with a combination of caloric reduction and increased exercise. Various strategies discussed. The long-term risks associated with continued morbid obesity discussed. Assessment & Plan (09/04/2022 2:34 PM PERINATAL SPECIALIST): Patient is encouraged to lose weight with a combination of caloric reduction and increased exercise. Various strategies discussed. The long-term risks associated with continued morbid obesity discussed. Assessment & Plan (08/02/2022 12:16 PM PERINATAL SPECIALIST): Patient is encouraged to lose weight [...] discussed. Assessment & Plan (07/13/2020 8:34 AM PERINATAL SPECIALIST): Patient is encouraged to lose weight with a combination of caloric reduction and increased exercise. Various strategies discussed. The long-term risks associated with continued morbid obesity discussed. Assessment & Plan (06/20/2020 9:35 AM PERINATAL SPECIALIST): Patient is encouraged to lose weight with a combination of caloric reduction and increased exercise. Various strategies discussed. The long-term risks associated with continued morbid obesity discussed. Assessment & Plan (07/08/2019 8:44 AM PERINATAL SPECIALIST): Patient is encouraged to lose weight with a combination of caloric reduction and increased exercise. Various strategies discussed. The long-term risks associated with continued morbid obesity discussed. Irregular menses 06/03/2019 Allergic rhinitis 07/05/2018 Assessment & Plan (02/23/2023 1:30 PM CDT): Nasal saline spray (Simply saline, Little Remedies, [place], [place]) 2 second sprays or 2 squeezes into [...] daily Assessment & Plan (07/17/2021 2:07 PM PERINATAL SPECIALIST): Claritin montelukast. Assessment & Plan (04/22/2021 8:25 AM CDT): Currently using Claritin and montelukast. She has not been trying Flonase as her nose is being to congested. Recommended sinus rinses her using a hot warm shower. Could also try Afrin for few days. Assessment & Plan (07/08/2019 8:43 AM PERINATAL SPECIALIST): Add montelukast to her Claritin. She struggles with nasal sprays due to chronic congestion. Assessment & Plan (07/05/2018 9:24 AM PERINATAL SPECIALIST): Try Afrin for 3 days along [...] mg/dL Assessment & Plan (07/13/2024 12:21 PM PERINATAL SPECIALIST): - Last LDL 103, TG 308, [...] triglycerides. Assessment & Plan (09/12/2023 8:12 PM PERINATAL SPECIALIST): Continue statin and optimize glycemic control Assessment & Plan (02/16/2023 8:14 PM CDT): Continue statin and optimize glycemic control Assessment & Plan (01/21/2023 9:50 AM CDT): Continue her atorvastatin and work on diet exercise and check lipids and LFTs before next visit. Assessment & Plan (08/02/2022 12:15 PM PERINATAL SPECIALIST): Well controlled on current therapy and will check a lipid panel and LFTs in 6 months. Assessment & Plan (01/17/2022 10:21 AM CDT): Well controlled on current therapy and will check a lipid panel and LFTs in 6 months. Assessment & Plan (07/17/2021 2:06 PM PERINATAL SPECIALIST): Well controlled on current therapy and will check a lipid panel and LFTs in 6 months. Assessment & Plan (06/24/2021 3:28 PM PERINATAL SPECIALIST): Continue statin and optimize glycemic control Assessment & Plan (12/19/2020 7:53 AM CDT): Continue statin and optimize glycemic control Assessment & Plan (07/13/2020 8:34 AM PERINATAL SPECIALIST): Well controlled on current therapy and will check a lipid panel and LFTs in 6 months. Assessment & Plan (06/08/2020 8:31 AM PERINATAL SPECIALIST): LDL within goal. Continue statin and optimize glycemic control Assessment & Plan (07/08/2019 8:42 AM PERINATAL SPECIALIST): Well controlled on current therapy and will check a lipid panel and LFTs in 12 months. Assessment & Plan (09/01/2018 2:22 PM PERINATAL SPECIALIST): Continue statin, optimize glycemic control Assessment & Plan (07/05/2018 9:23 AM PERINATAL SPECIALIST): Well controlled on current therapy and will check a lipid panel and LFTs in 6 months. Assessment & Plan (08/26/2017 4:27 PM PERINATAL SPECIALIST): Start atorvastatin and check lipids and LFTs in 3-4 months. Call back for results. Vitamin D deficiency 07/02/2017 Assessment & Plan (07/13/2024 12:22 PM PERINATAL SPECIALIST): - Last Vitamin D 42 (12/2023), [...] week Assessment & Plan (09/12/2023 8:12 PM PERINATAL SPECIALIST): Continue long-term supplement Assessment & Plan (02/16/2023 8:14 PM CDT): Continue long-term supplement Assessment & Plan (08/02/2022 12:15 PM PERINATAL SPECIALIST): Continue current supplementation and check level in 1 year. Assessment & Plan (07/17/2021 2:06 PM PERINATAL SPECIALIST): Continue current supplementation and check level in 1 year. Assessment & Plan (06/24/2021 3:29 PM PERINATAL SPECIALIST): Continue long-term supplement Assessment & Plan (12/19/2020 7:53 AM CDT): Continue long-term supplement Assessment & Plan (07/13/2020 8:33 AM PERINATAL SPECIALIST): Continue current supplementation and check level in 1 year. Assessment & Plan (06/08/2020 8:31 AM PERINATAL SPECIALIST): Vitamin-D level within goal, continue chronic supplement Assessment & Plan (07/08/2019 8:42 AM PERINATAL SPECIALIST): Continue current supplementation and check level in 1 year. Assessment & Plan (06/03/2019 8:24 AM CDT): Recently ran out of supplement, so we will restart and check her level today. Also check B12 Assessment & Plan (09/01/2018 2:22 PM PERINATAL SPECIALIST): Continue supplement Assessment & Plan (07/05/2018 9:23 AM PERINATAL SPECIALIST): Continue current supplementation and check level in 1 year. Assessment & Plan (08/26/2017 4:26 PM PERINATAL SPECIALIST): Continue current supplementation and check level [...] Value Date HGBA1C 8.9 (A) 01/09/2025 Per [employer], goal A1c is less 7% [...] Component Value Date HGBA1C 11.7 07/13/2024 Per [employer], goal A1c is less 7% [...] that I am available via phone or [employer] Adventurer[employer] if they have any concerns for hypo/hyperglycemia, medication refills, etc. Assessment & Plan (08/26/2024 6:10 PM PERINATAL SPECIALIST): Assessment & Plan (07/13/2024 12:20 PM PERINATAL SPECIALIST): - Diabetes is complicated by hyperlipidemia, hypertension, morbid obesity and chronic steroid use. Uncontrolled. Lab Results Component Value Date HGBA1C 11.7 07/13/2024 Per [employer], goal A1c is less 7% [...] in prescriptions for both Dexcom G7 and IvaluaStyle Silva 3 CGM for mcmillan checking. Also [...] Return visit 3 months to see the FILING MACHINE OPERATOR/PA, 6 months to see me. Assessment [...] Component Value Date HGBA1C 12.5 11/17/2023 Per [employer], goal A1c is less 7% [...] Component Value Date HGBA1C 12.5 11/17/2023 Per [employer], goal A1c is less 7% [...] that I am available via phone or [employer] if they have any concerns for hypo/hyperglycemia, medication refills, etc. Assessment & Plan (09/12/2023 8:13 PM PERINATAL SPECIALIST): Very high glucoses; multifactorial including steroid [...] daily. Assessment & Plan (06/24/2021 3:29 PM PERINATAL SPECIALIST): Much improved but needs a little more basal insulin. Assessment & Plan (12/19/2020 7:53 AM CDT): Multiple medications, but now requires insulin. We can gradually adjust her Lantus based on her clinical response. Assessment & Plan (06/08/2020 8:32 AM PERINATAL SPECIALIST): Glucoses somewhat better now that she [...] motivator. Assessment & Plan (07/08/2019 8:43 AM PERINATAL SPECIALIST): Continue increased dose of Ozempic and also continue Invokana. Importance of dietary changes increase exercise weight loss discussed. Follow-up with her sanitarian as they direct. Assessment & Plan (06/03/2019 8:25 AM CDT): Somewhat suboptimal, would benefit from increasing Ozempic and continuing efforts with diet and lifestyle. Needs follow-up labs Assessment & Plan (09/01/2018 2:22 PM PERINATAL SPECIALIST): Glucoses a little high, but she has bruising with Victoza so she may benefit by changing to weekly Ozempic, which is a little stronger, as well. Jardiance is been ineffective, so we may need to provide preauthorization for Invokana Assessment & Plan (07/05/2018 9:23 AM PERINATAL SPECIALIST): A1c above goal. We stressed importance of increased exercise, reduce calories, weight loss. Could consider switching Victoza to ozempic. Otherwise does not tolerate metformin or sulfonylureas. May need insulin soon. She is directed to follow up with her sanitarian more quickly than her next scheduled appointment in November. Assessment & Plan (08/26/2017 4:26 PM PERINATAL SPECIALIST): Continue current medication regimen and follow up with her sanitarian as they direct. Low carb diet weight [...] mmHg Assessment & Plan (07/13/2024 12:21 PM PERINATAL SPECIALIST): - Above goal today - Encouraged [...] monitor. Assessment & Plan (06/08/2023 5:25 PM PERINATAL SPECIALIST): Stop amlodipine with current issues of swelling. Pressure currently well controlled and should monitor at home Assessment & Plan (01/21/2023 9:49 AM CDT): Blood pressure well controlled on lisinopril Assessment & Plan (09/04/2022 2:34 PM PERINATAL SPECIALIST): Blood pressure well controlled on her lisinopril. Assessment & Plan (08/02/2022 12:15 PM PERINATAL SPECIALIST): Increase lisinopril to 20 mg daily. Monitor blood pressure at home call back if no improvement. Assessment & Plan (01/17/2022 10:21 AM CDT): Well controlled on the current regimen. Avoidance of salt, proper body weight, and routine exercise recommended. Assessment & Plan (07/17/2021 2:06 PM PERINATAL SPECIALIST): Well controlled on the current regimen. Avoidance of salt, proper body weight, and routine exercise recommended. Assessment & Plan (04/22/2021 8:24 AM CDT): Well controlled on the current regimen. Avoidance of salt, proper body weight, and routine exercise recommended. Assessment & Plan (07/13/2020 8:34 AM PERINATAL SPECIALIST): Well controlled on the current regimen. Avoidance of salt, proper body weight, and routine exercise recommended. Assessment & Plan (07/08/2019 8:42 AM PERINATAL SPECIALIST): Well controlled on the current regimen. Avoidance of salt, proper body weight, and routine exercise recommended. Assessment & Plan (09/01/2018 2:21 PM PERINATAL SPECIALIST): Blood pressure close to target, working on diet and lifestyle Assessment & Plan (07/05/2018 9:23 AM PERINATAL SPECIALIST): Well controlled on the current regimen. Avoidance of salt, proper body weight, and routine exercise recommended. Assessment & Plan (08/26/2017 4:25 PM PERINATAL SPECIALIST): Well controlled on the current regimen. [...] montelukast Assessment & Plan (08/26/2024 6:08 PM PERINATAL SPECIALIST): Recent exacerbation due to CAP followed by RSV Symptoms improved Continue present plan and medication--albuterol prn, montelukast Assessment & Plan (07/13/2020 8:36 AM PERINATAL SPECIALIST): Doing well on her Symbicort. Okay to discontinue and use albuterol only as needed. Restart Symbicort if uses her albuterol more than 2 times a week. Obstructive sleep apnea 04/01/2012 Overview (11/12/2017): Description: CPAP Assessment & Plan (01/06/2024 9:08 AM CDT): Patient is compliant with the CPAP machine and gets symptomatic relief. Assessment & Plan (08/02/2022 12:15 PM PERINATAL SPECIALIST): Patient is compliant with the CPAP machine and gets symptomatic relief. Assessment & Plan (07/17/2021 2:06 PM PERINATAL SPECIALIST): Repeat sleep study confirmed obstructive sleep [...] syndrome. Assessment & Plan (07/13/2020 8:34 AM PERINATAL SPECIALIST): Patient is compliant with the CPAP machine and gets symptomatic relief. Assessment & Plan (07/08/2019 8:42 AM PERINATAL SPECIALIST): Patient is compliant with the CPAP machine and gets symptomatic relief. 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 Call back if symptoms worsen after doxycycline runs out Assessment & Plan (06/08/2023 5:25 PM PERINATAL SPECIALIST): Seems like cellulitis slow to improve [...] 12/21/2024 Assessment & Plan (09/04/2022 2:35 PM PERINATAL SPECIALIST): No signs of neurological abnormality on [...] Continue other medications as directed by her sanitarian. Diet exercise discussed. Hopefully may be able to wean prednisone in the near future as well. Assessment & Plan (06/15/2023 10:48 AM PERINATAL SPECIALIST): She knows that the steroids will exacerbate her hyperglycemia and should be in contact with her sanitarian for management. Assessment & Plan (06/08/2023 5:26 PM PERINATAL SPECIALIST): Poor control of her diabetes prior to this hospitalization and even worse now on prednisone. Follow-up with her sanitarian for management. Diet exercise weight loss recommended. Assessment & Plan (01/21/2023 9:50 AM CDT): Blood sugars remain above goal. Hopefully the recent addition of mounjaro will help significantly. Discuss up titration of this and her mealtime insulin with her sanitarian. Diet exercise discussed. Check A1c and fasting blood sugar before next visit. Assessment & Plan (08/02/2022 12:16 PM PERINATAL SPECIALIST): A1c poorly controlled. Importance of diet exercise weight loss discussed at length. Continue her Ozempic and insulin and needs to contact her sanitarian soon as possible for guidance on further therapy. Assessment & Plan (01/17/2022 10:22 AM CDT): Patient aware A1c grossly uncontrolled. Must work on diet exercise and weight loss. She has to get back on her insulin and should discuss this today with her sanitarian. Risks posed her health with poor glycemic control discussed. Assessment & Plan (07/13/2020 8:34 AM PERINATAL SPECIALIST): A1c above goal. Importance of diet exercise weight loss discussed. Continue current medication regimen and follow-up with her sanitarian as they direct. Dyslipidemia 06/03/2019 07/13/2020 Healthcare [...] yearly. Colonoscopy due March 2027. Follow-up the marketing communications leader for breast exam pelvic exam as they direct. Will see her back in about 6 months sooner if needed. Assessment & Plan (08/02/2022 12:17 PM PERINATAL SPECIALIST): Flu shot each May. Tetanus booster every 10 years. Pneumovax completed. COVID booster recommended. Mammogram yearly. Colonoscopy due March 2027. Follow-up the marketing communications leader for breast exam pelvic exam as they direct. Will see her back in 6 months with lab sooner if needed. Assessment & Plan (07/17/2021 2:08 PM PERINATAL SPECIALIST): Flu shot each May. Tetanus booster every 10 years. Pneumovax completed. COVID vaccine completed. Mammogram yearly. Colonoscopy ordered and she should verify coverage before proceeding. Follow-up the marketing communications leader for breast exam and pelvic exam as they direct. We will see her back in 1 year for physical and fasting lab sooner if needed. Assessment & Plan (07/13/2020 8:35 AM PERINATAL SPECIALIST): Flu shot each May. Tetanus booster every 10 years. She has had a Pneumovax. Mammogram was abnormal back in August and she has delayed follow-up studies until now and she is urged to get her diagnostic and ultrasound studies done at her earliest convenience and she is aware of the risks posed her health with delay in proceeding. Follow-up the marketing communications leader for breast exam and pelvic exam as they direct. We will see her back in 1 year for wellness visit fasting lab sooner if needed. Assessment & Plan (07/08/2019 8:43 AM PERINATAL SPECIALIST): Flu shot each May. Tetanus booster every 10 years. Mammogram ordered. Will see her back in 1 year for physical and fasting lab sooner if needed. Assessment & Plan (07/05/2018 9:24 AM PERINATAL SPECIALIST): Tetanus booster today. Flu shot each May. Mammogram ordered. Patient should follow-up the marketing communications leader breast exam and pelvic exam. We will see her back in 1 year for wellness visit fasting lab sooner if needed. Assessment & Plan (08/26/2017 4:27 PM PERINATAL SPECIALIST): Flu shot each May. Tetanus booster every 10 years. See her marketing communications leader for breast exam mammogram and Pap smear [...] aerobics Assessment & Plan (08/26/2017 4:28 PM PERINATAL SPECIALIST): Patient is encouraged to lose weight [...] Type Department Care Team Description 02/21/2025 Telephone [facility] at [address] [place] [id number] Adelina Little, PT Appointment 02/20/2025 1:00 PM CDT - 02/20/2025 11:59 PM CDT Hospital Encounter [facility] [id number] [place] [id number] Adam Corrales MD Postdural puncture headache [G97.1] (Primary Dx); New onset of headaches Discharge Disposition: Discharge to home or self care 02/16/2025 9:00 AM CDT Therapy [facility] at [address] [address] Adelina Little, PT Lymphedema (Primary Dx); Decreased functional mobility and endurance 02/15/2025 9:15 AM CDT Office Visit [facility] at [address] [phone] Lynn Rodriguez MD Uncontrolled type 2 diabetes mellitus with hyperglycemia (HCC) (Primary Dx); Benign hypertension; Mixed hyperlipidemia; Morbid obesity with BMI of 50.0-59.9, adult (HCC); Moderate persistent asthma without complication; Class 3 severe obesity due to excess calories with serious comorbidity and body mass index (BMI) of 50.0 to 59.9 in adult; MCC (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); Chronic hypoxic respiratory failure (HCC); Lymphedema; Sacroiliitis; Radiculopathy, lumbosacral region; Spinal stenosis of lumbar region with neurogenic claudication; Autoimmune disease 02/14/2025 12:59 PM CDT - 02/14/2025 11:59 PM CDT Hospital [facility] [address] [place] [id number] Adam Corrales MD Radiculopathy, lumbosacral region [M54.17] (Primary Dx); Spinal stenosis of lumbar region with neurogenic claudication Discharge Disposition: Discharge to home or self care 02/09/2025 9:00 AM CDT Therapy [facility] at [address] [address] Adelina Little, PT Lymphedema (Primary Dx); Decreased functional mobility and endurance 02/09/2025 Orders Only [facility] at [address] [phone] Iqra Jensen MD JEREMY (obstructive sleep apnea) (Primary Dx) 02/07/2025 12:00 PM CDT Therapy [facility] at [address] [address] Ele Vazquez, PT Lymphedema (Primary Dx); Decreased functional mobility and endurance 02/07/2025 Plan of Care Documentation [facility] at [address] [address] 02/06/2025 9:30 AM CDT - 02/06/2025 11:59 PM CDT Hospital Encounter [facility] [address] [facility] [address] [place] [address] Amada Baldwin, ERIN Spinal stenosis of lumbar region with neurogenic claudication (Primary Dx); Radiculopathy, lumbosacral region; Sacroiliitis; Chronic right-sided low back pain with right-sided sciatica; Uncontrolled type 2 diabetes mellitus with hyperglycemia (HCC); Morbid obesity with BMI of 50.0-59.9, adult (HCC); Benign hypertension Discharge Disposition: Discharge to home or self care 02/02/2025 3:02 PM CDT - 02/02/2025 5:37 PM CDT Emergency [facility] [id number] [place] [id number] Sumit Yu MD Fall, initial encounter (Primary Dx) Discharge Disposition: Discharge to home or self care 02/02/2025 2:04 PM CDT - 02/02/2025 11:59 PM CDT Hospital Encounter [facility] [address] [place] [id number] Adam Corrales MD Chronic low back pain with sciatica, sciatica laterality unspecified, unspecified back pain laterality Discharge Disposition: Discharge to home or self care 02/02/2025 Telephone [facility] at [address] [address] Adelina Little, PT Appointment 01/30/2025 12:00 PM CDT Therapy [facility] at [address] [place] [address] Tiffanie Cantu, PT Lymphedema (Primary Dx); Decreased functional mobility and endurance 01/24/2025 10:[address] 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 [address] [place] [address] Lucian Trinidad MD PhD Cutaneous vasculitis Discharge Disposition: Discharge to home or self care 01/24/2025 9:00 AM CDT Office Visit [facility] [address] [facility] 5th [place] [address] [place] [phone] Lucian Trinidad MD PhD 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 Results Follow-Up [facility] [address] [facility] 5th [place] [address] [place] [address] Lucian Trinidad MD PhD XR Wrist Right 3 or More Views 01/23/2025 12:00 PM CDT Therapy [facility] at [address] [address] Tiffanie Cantu, PT Lymphedema (Primary Dx); Decreased functional mobility and endurance 01/23/2025 Telephone [facility] at [address] [phone] Graciela Shultz 01/20/2025 2:00 PM CDT Therapy [facility] at [address] [address] Tiffanie Cantu, PT Lymphedema (Primary Dx); Decreased functional mobility and endurance 01/19/2025 7:00 PM CDT - 01/19/2025 11:59 PM CDT Hospital Encounter [facility] [address] [place] [address] Obstructive sleep apnea Discharge Disposition: Discharge to home or self care 01/18/2025 3:00 PM CDT Therapy [facility] at [address] [address] Tiffanie Cantu, PT Lymphedema (Primary Dx); Decreased functional mobility and endurance 01/11/2025 1:00 PM CDT Therapy [facility] at [facility] [address] [facility] [address] [place] [address] Tiffanie Cantu, PT Lymphedema (Primary Dx); Decreased functional mobility and endurance 01/10/2025 12:21 PM CDT - 01/10/2025 11:59 PM CDT Hospital Encounter [facility] [address] [place] [address] Adam Corrales MD Chronic low back pain with sciatica, sciatica laterality unspecified, unspecified back pain laterality (Primary Dx); Acute right-sided low back pain with right-sided sciatica; Sacroiliitis; Radiculopathy, lumbosacral region; Chronic right-sided low back pain with right-sided sciatica Discharge Disposition: Discharge to home or self care 01/09/2025 3:10 PM CDT Lab [facility] [address] [place] [address] 01/09/2025 2:55 PM CDT Lab [facility] [place] [facility] ([facility]) [address] [place] [phone] Uncontrolled type 2 diabetes mellitus with hyperglycemia (HCC); Obstructive sleep apnea; Iron deficiency; Restless leg syndrome 01/09/2025 11:30 AM CDT - 01/09/2025 11:59 PM CDT Hospital Encounter [facility] [address] [place] [address] Screening mammogram, encounter for Discharge Disposition: Discharge to home or self care 01/09/2025 10:30 AM CDT Office Visit [facility] Endocrinology Metabolism and Lipid [address] 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 13th [place] [address] [place] [address] Shirley Teixeira PA Vitamin D 25 hydroxy, Vitamin B12, TSH, Additional followed-up results: 6 01/06/2025 2:00 PM CDT Therapy [facility] at [address] [address] Tiffanie Cantu, PT Lymphedema (Primary Dx); Decreased functional mobility and endurance 01/06/2025 Plan of Care Documentation [facility] at [address] [address] 01/06/2025 Documentation [facility] at [address] [address] Tiffanie Cantu, PT compression script 01/06/2025 Plan of Care Documentation [facility] at [address] [address] 01/04/2025 12:00 PM CDT Therapy [facility] at [address] [address] Tiffanie Cantu, PT Lymphedema (Primary Dx); Decreased functional mobility and endurance 01/03/2025 Results Follow-Up [facility] Pulmonary at [address] [place] [phone] Canelo Doan DO Transthoracic Echo (TTE) Complete W Doppler/CF 01/02/2025 9:30 AM CDT Office Visit [facility] Sleep Medicine at [address] [place] [phone] Iqra Jensen MD Obstructive sleep apnea (Primary Dx); Hypersomnia; Obesity, unspecified class, unspecified obesity type, unspecified whether serious comorbidity present; Iron deficiency; Restless leg syndrome 12/30/2024 Telephone [facility] Gastroenterology at [address] [place] [phone] Ad Camacho MD 12/29/2024 9:00 AM CDT Therapy [facility] Services at [address] [address] Ele Vazquez PT Lymphedema (Primary Dx); Decreased functional mobility and endurance 12/29/2024 Plan of Care Documentation [facility] Services at [address] [phone] 12/23/2024 6:57 AM CDT - 12/23/2024 11:59 PM CDT Hospital Encounter [facility] Cardiology 1 [place] [address] Hypoxia Discharge Disposition: Discharge to home or self care 12/22/2024 Telephone [facility] Gastroenterology at [address] [place] [phone] Alex Billings MD 12/21/2024 2:30 PM CDT Office Visit [facility] Primary Care at [facility] [address] [place] [address] [place] [phone] Lynn Rodriguez MD Acute right-sided low back [...] Films 12/13/2024 2:30 PM CDT Office Visit [facility] Pulmonary at [address] [place] [address] Canelo Doan DO Moderate persistent asthma without complication (Primary Dx); Class 3 severe obesity due to excess calories with serious comorbidity and body mass index (BMI) of 45.0 to 49.9 in adult; Chronic hypoxic respiratory failure (HCC); upstairs maid 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 user 11/30/2024 3:30 PM CDT Office Visit [facility] Convenient Care at [address] [phone] Minnie House NP Acute non-recurrent frontal sinusitis (Primary Dx) from Last 3 Months Immunizations Immunization Administration Dates Next Due Influenza, Quadrivalent, Rosita l Culture-based MDCK, Preservative Free, Antibiotic Free, Intramuscular 05/13/2023,05/23/2022 Influenza, Quadrivalent, Spl it, Intramuscular 05/03/2015 Influenza, Quadrivalent, Spl it, Preservative Free, Intramuscular 05/16/2020,05/07/2018 Influenza, Unspecified 05/16/2021,2020,04/22/2021(Defer red: Patient Refused),03/19/2021(Deferred: Patient Refused),05/12/2019,05/07/2017 Telarix (J&J) SARS-CoV-2 Vaccination 10/05/2020 Pneumococcal Conjugate Pcv20 [...] IVF transfer 2015 Hx 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 Morbid obesity (HCC) [...] on file Legal Sex Female 11:54 PM PERINATAL SPECIALIST Gender Identity Female 09/19/2020 8:37 AM PERINATAL SPECIALIST Sexual Orientation Straight 09/19/2020 8: 37 AM PERINATAL SPECIALIST Obstetrics History Para Term AB IAB [...] Description 04/27/2025 7:30 AM CDT Hospital Encounter [address] [address] Ad Camacho MD 4 [facility] [address] [place] [address] 04/27/2025 7:30 AM CDT - 04/27/2025 8:00 AM CDT Surgery [address] [address] Ad Camacho MD 4 [facility] [address] [place] [address] ESOPHAGOGASTRODUODENOSCOPY Scheduled Procedures Name Priority Associated Diagnoses [...] Maintenance Results * Imaging Epidural Blood Patch (39993) (02/20/2025 2:32 PM CDT) Narrative RAD_PACS_[facility] - 02/20/2025 2:33 PM CDT The images from this study are not interpreted by Radiology. Please refer to the physician's procedure / OR operative note. us Aadm Corrales MD IMG PAIN MGMT PROCEDU RES Final Result RAD_PACS_[facility] * LALO ab ql w/rflx to LALO qn (02/15/2025 10:41 AM CDT) LALO, qual NEGATIVE NEGATIVE [facility] Comment: LALO IFA is a first line [...] AC-0: Negative International Consensus on LALO Patterns (https://doi.org/10.1515/dfep-3569-2984) For additional information, please refer to http://education.Knowledge Factor/faq/KIA464 (This link is being provided for informational/ educational purposes only.) Blood 02/15/2025 10:4 1 AM CDT 02/15/2025 10:43 AM CDT Narrative [facility] - 02/21/2025 7:05 PM CDT FASTING:YES FASTING: YES us Lucian Trinidad MD PhD LAB BLOOD ORDERABLE S Final Result Performing Organization Address [facility] de Phone Number [facility] [address] [place] [address] * Anti-double stranded DNA abs (02/15/2025 10:41 AM CDT) DNA (DS) ab <1 IU/mL [facility] Comment: IU/mL Interpretation < or = 4 Negative 5-9 Indeterminate > or = 10 Positive Blood 02/15/2025 10:4 1 AM CDT 02/15/2025 10:43 AM CDT Narrative [facility] - 02/21/2025 7:05 PM CDT FASTING:YES FASTING: YES us Lucian Trinidad MD PhD LAB BLOOD ORDERABLE S Final Result Performing Organization Address [facility] de Phone Number [facility] [address] [place] [address] * NOTE (02/15/2025 10:41 AM CDT) Note [facility] Comment: This urine was analyzed for the presence of WBC, RBC, bacteria, casts, and other formed elements. Only those elements seen were reported. 02/15/2025 10:4 1 AM CDT 02/15/2025 10:43 AM CDT Narrative [facility] - 02/21/2025 7:05 PM CDT FASTING:YES FASTING: YES Lucian Trinidad MD PhD LAB BLOOD ORDERABLE S Final Result Performing Organization Address [facility] de Phone Number [facility] [address] [place] [address] * C4 complement (02/15/2025 10:41 AM CDT) Complement component C4C 24 15 - 57 mg/dL [facility] Blood 02/15/2025 10:4 1 AM CDT 02/15/2025 10:43 AM CDT Narrative [facility] - 02/21/2025 7:05 PM CDT FASTING:YES FASTING: YES Lucian Trinidad MD PhD LAB BLOOD ORDERABLE S Final Result Performing Organization Address [facility] de Phone Number [facility] [address] [place] [address] * PR3 - proteinase 3, Ab (02/15/2025 10:41 AM CDT) Proteinase-3 ab <1.0 AI [facility] Comment: Value Interpretation ----- <1.0 [...] ORDERABLE S Final Result Performing Organization Address [facility] de Phone Number [facility] [address] [place] [address] * MPO - myeloperoxidase antibody (02/15/2025 10:41 AM CDT) Pathologist [facility] MYELOPEROXIDASE ANTIBODY <1.0 [facility] Comment: Value Interpretation ----- <1.0 No Antibody [...] ORDERABLE S Final Result Performing Organization Address [facility] de Phone Number [facility] [address] [place] [address] * (ABNORMAL) Urinalysis reflex to microscopic (02/15/2025 10:41 AM CDT) Color, ur YELLOW YELLOW [facility] Appearance, ur CLOUDY(A) CLEAR [facility] Specific gravity 1.039(H) 1.001 - 1.035 [facility] pH, ur < OR = 5.0(A) 5.0 - 8.0 [facility] Glucose, ur 2+(A) NEGATIVE [facility] Bilirubin, ur NEGATIVE NEGATIVE [facility] Ketones, ur TRACE(A) NEGATIVE [facility] Blood, ur 1+(A) NEGATIVE [facility] Protein, ur, quant 1+(A) NEGATIVE [facility] Nitrites, ur NEGATIVE NEGATIVE [facility] Leukocyte esterase, ur NEGATIVE NEGATIVE [facility] WBC, ur NONE SEEN < OR = 5 /HPF [facility] RBC, ur NONE SEEN < OR = 2 /HPF [facility] Epithelial cells, squamous, ur 20-40(A) < OR = 5 /HPF [facility] Bacteria, ur, quant FEW(A) NONE SEEN /HPF [facility] Hyaline cast NONE SEEN NONE SEEN /LPF [facility] Yeast, ur MANY(A) NONE SEEN /HPF [facility] Urine 02/15/2025 10:4 1 AM CDT 02/15/2025 10:43 AM CDT Narrative [facility] - 02/21/2025 7:05 PM CDT FASTING:YES FASTING: YES us Lucian Trinidad MD PhD LAB URINE ORDERABLE S Final Result [facility] [address] [place] [address] * (ABNORMAL) CBC with auto differential (02/15/2025 [...] BLOOD ORDERABLE S Final Result [facility] [address] [place] [address] * Cyclic citrul peptide antibody, IgG (02/15/2025 [...] LAB BLOOD ORDERABLE S Final Result [facility] [address] [place] [phone] * (ABNORMAL) Protein / creatinine ratio, urine, [...] ORDERABLE S Final Result Performing Organization Address [facility]/ZIP Co de Phone Number [facility] [address] [place] [address] * Cryoglobulin, Serum and Plasma (02/15/2025 10:41 AM CDT) Cryoglobulin, Qual Negative Negative [facility] Comment: The Cryocrit is primarily [...] ORDERABLE S Final Result Performing Organization Address City/[facility]/ZIP Co de Phone Number [facility] [address] [facility] [place] [address] * Aldolase (02/15/2025 10:41 AM CDT) ALDOLASE 6.6 < OR = 8.1 U/L [facility] Blood 02/15/2025 10:4 1 AM CDT 02/15/2025 10:43 AM CDT Narrative [facility] - 02/21/2025 7:05 PM CDT FASTING:YES FASTING: YES us Lucian Trinidad MD PhD LAB BLOOD ORDERABLE S Final Result Performing Organization Address City/[facility]/ZIP Co de Phone Number [facility] [address] [place] [address] * Erythrocyte sedimentation rate (02/15/2025 10:41 AM CDT) Pathologist [facility] Erythrocyte sedimentation rate 6 < OR = 20 mm/h [facility] Blood 02/15/2025 10:4 1 AM CDT 02/15/2025 10:43 AM CDT Narrative [facility] - 02/21/2025 7:05 PM CDT FASTING:YES FASTING: YES Lucian Trinidad MD PhD LAB BLOOD ORDERABLE S Final Result Performing Organization Address [facility] de Phone Number [facility] [address] [place] [address] * Rheumatoid factor (02/15/2025 10:41 AM CDT) Rheumatoid factor, quant <10 <14 IU/mL [facility] Blood 02/15/2025 10:4 1 AM CDT 02/15/2025 10:43 AM CDT Narrative [facility] - 02/21/2025 7:05 PM CDT FASTING:YES FASTING: YES Lucian Trinidad MD PhD LAB BLOOD ORDERABLE S Final Result Performing Organization Address City/[facility]/ZIP Co de Phone Number [facility] [address] [facility] [place], [place] [address] * C3 complement (02/15/2025 10:41 AM CDT) Complement component C3C 188 83 - 193 mg/dL [facility] Blood 02/15/2025 10:4 1 AM CDT 02/15/2025 10:43 AM CDT Narrative [facility] - 02/21/2025 7:05 PM CDT FASTING:YES FASTING: YES us Lucian Trinidad MD PhD LAB BLOOD ORDERABLE S Final Result [facility] [address] [place] [address] * CRP (cardiac risk) (02/15/2025 10:41 AM CDT) Pathologist [facility] hsCRP 2.9 mg/L [facility] Comment: Reference Range Optimal <1.0 Vaishaliinger [...] for Disease Control and Prevention and the [employer]. Circulation 2003; 107(3): 499-511. Blood 02/15/2025 10:4 1 AM CDT 02/15/2025 10:43 AM CDT Narrative [facility] - 02/21/2025 7:05 PM CDT FASTING:YES FASTING: YES us Lucian Trinidad MD PhD LAB BLOOD ORDERABLE S Final Result Performing Organization Address [facility] Co de Phone Number [facility] [address] [place] [address] * Creatine kinase (CK), total (02/15/2025 10:41 AM CDT) Pathologist [facility] CK 82 20 - 239 U/L [facility] Blood 02/15/2025 10:4 1 AM CDT 02/15/2025 10:43 AM CDT Narrative [facility] - 02/21/2025 7:05 PM CDT FASTING:YES FASTING: YES Lucian Trinidad MD PhD LAB BLOOD ORDERABLE S Final Result Performing Organization Address [facility] de Phone Number [facility] [address] [place] [address] * (ABNORMAL) Comprehensive metabolic panel (02/15/2025 10:41 AM CDT) Pathologist [facility] Glucose 279(H) 65 - 99 mg/dL [facility] [...] BLOOD ORDERABLE S Final Result [facility] [address] [place] [address] * Imaging Lumbar/Caudal Epidural Steroid INJ (248[address]) (02/14/2025 1:38 PM CDT) Narrative [facility] - 02/14/2025 1:38 PM CDT The images from this study are not interpreted by Radiology. Please refer to the physician's procedure / OR operative note. us Amada Baldwin FILING MACHINE OPERATOR IMG PAIN MGMT PROCEDURE S Final Result [...] CDT) Blood Narrative [facility] - 01/27/2025 2:03 PM CDT Blood draw complete us Lucian Trinidad MD PhD LAB BLOOD ORDERABLE S Final Result [facility] [place] [address] * XR Hand Right 3 or More [...] Antibodies against the following antigens: Ashly-1 Ab, CHEMICAL MAKER Ab, Scl-70 Ab, Bradshaw Ab, SS-A/Ro Ab, [...] S Final Result SALMA [facility] Department of Laboratories [place], [place] [id number] * Anti-Neutrophilic Cytoplasmic Antibody (ANCA) with Reflex to MPO and PR3 Abs (01/24/2025 9:41 AM CDT) ANCA Negative Blood 01/24/2025 9:41 AM CDT 01/24/2025 10:43 AM CDT us Lucian Trinidad MD PhD LAB BLOOD ORDERABLE S Final Result SALMA [facility] [place] [address] * Neuromuscular Testing Blood (01/24/2025 12:00 AM CDT) Blood (Serum) 01/24/2025 01/25/2025 Narrative [facility] - 02/06/2025 4:56 PM CDT Please click on the PDF link to view the report containing this result us Lucian Trinidad MD PhD LAB PATHOLOGY ORDER DAVI Final Result Performing Organization Address City/[facility]/ZIP Co de Phone Number [facility] Room [address] [place] [address] * eGFR (01/09/2025 12:30 PM CDT) eGFR [...] BLOOD ORDERABLES Flora dowd Result [facility] [place] [address] * (ABNORMAL) Differential, auto (01/09/2025 12:30 PM CDT) Neutrophil abs 10.98(H) 1.50 - 6.50 K/cumm Imm gran abs 0.13(H) 0.00 - 0.10 K/cumm [facility] Lymphocyte abs 1.66 0.80 - 3.30 K/cumm [facility] Monocyte abs 1.29(H) 0.20 - 0.80 K/cumm [facility] Eosinophil abs 0.05 0.00 - 0.50 K/cumm [facility] Basophil abs 0.06 0.00 - 0.10 K/cumm [facility] Neutrophil pct 77.5 % [facility] Comment: Interpretive Data Percent cell count reference ranges are not reported, since discordance with absolute values may lead to misinterpretation of CBC data. Current Interpretive Data was last revised on 2017. Imm gran pct 0.9 % [facility] Comment: Interpretive Data Percent cell count reference ranges are not reported, since discordance with absolute values may lead to misinterpretation of CBC data. Current Interpretive Data was last revised on 2017. Lymphocyte pct 11.7 % [facility] Comment: Interpretive Data Percent cell count reference ranges are not reported, since discordance with absolute values may lead to misinterpretation of CBC data. Current Interpretive Data was last revised on 2017. Monocyte pct 9.1 % [facility] Comment: Interpretive Data Percent cell count reference ranges are not reported, since discordance with absolute values may lead to misinterpretation of CBC data. Current Interpretive Data was last revised on 2017. Eosinophil pct 0.4 % [facility] Comment: Interpretive Data Percent cell count reference ranges are not reported, since discordance with absolute values may lead to misinterpretation of CBC data. Current Interpretive Data was last revised on 2017. Basophil pct 0.4 % [facility] Comment: Interpretive Data Percent cell count reference ranges are not reported, since discordance with absolute values may lead to misinterpretation of CBC data. Current Interpretive Data was last revised on 2017. Blood 01/09/2025 12:3 0 PM CDT 01/09/2025 1:18 PM CDT Shirley CHUN LAB BLOOD ORDERABLES Flora l Result Performing Organization Address City/[facility]/ZIP Co de Phone Number [facility] [place] [address] * (ABNORMAL) CBC with auto differential (01/09/2025 12:30 PM CDT) WBC 14.17(H) 3.80 - 9.90 K/cumm Hgb 12.2 11.9 - 15.5 g/dL [facility] Hct 38.2 35.6 - 45.5 % [facility] [address]t 417(H) 150 - 400 K/cumm [facility] MPV 10.2 9.1 - 12.3 fL [facility] RBC 4.21 3.90 - 5.20 M/cumm [facility] MCV 90.7 81.3 - 96.4 fL [facility] MCH 29.0 27.1 - 33.3 pg [facility] MCHC 31.9(L) 32.3 - 35.7 g/dL [facility] RDW CV 16.4(H) 11.1 - 14.9 % [facility] RDW SD 54.8(H) 35.7 - 48.1 fL [facility] NRBC abs 0.00 0.00 - 0.01 K/cumm [facility] Blood 01/09/2025 12:3 0 PM CDT 01/09/2025 1:18 PM CDT Shirley CHUN LAB BLOOD ORDERABLES Flora l Result Performing Organization Address [facility]/ZIP Co de Phone Number [facility] [place] [address] * Albumin Creatinine Ratio, Urine (01/09/2025 12:30 PM CDT) Albumin Ur 37.8 mg/L Comment: Interpretive Data No reference range established. Current interpretive data was last revised 2018. Creatinine Ur 353.8 mg/dL [facility] Comment: Interpretive Data No reference range established. Current interpretive data was last revised 2018. Albumin Creatinine Ratio, Ur 11 1 - 29 mg/g [facility] Urine 01/09/2025 12:3 0 PM CDT 01/09/2025 1:18 PM CDT Shirley CHUN LAB URINE ORDERABLES Flora l Result Performing Organization Address [facility] de Phone Number [facility] [place] [address] * Vitamin D 25 hydroxy (01/09/2025 12:30 PM CDT) Pathologist [facility] Vitamin D 25-OH 38 30 - 80 ng/mL Blood 01/09/2025 12:3 0 PM CDT 01/09/2025 1:18 PM CDT Result [facility] Shirley CHUN LAB BLOOD ORDERABLES Flora l Result Performing Organization Address [facility] Co de Phone Number [facility] [place] [address] * TSH (01/09/2025 12:30 PM CDT) Thyroid Stimulating Hormone 1.92 0.30 - 4.20 mcIUnit/mL Blood 01/09/2025 12:3 0 PM CDT 01/09/2025 1:18 PM CDT Shirley CHUN LAB BLOOD ORDERABLES Flora l Result Performing Organization Address [facility] Co de Phone Number [facility] [place] [address] * Ferritin (01/09/2025 12:30 PM CDT) Ferritin 42 13 - 150 ng/mL Blood 01/09/2025 12:3 0 PM CDT 01/09/2025 1:18 PM CDT us Iqra Jensen MD LAB BLOOD ORDERABLES Final Resul t Performing Organization Address [facility] Co de Phone Number [facility] [place] [address] * Vitamin B12 (01/09/2025 12:30 PM CDT) Pathologist [facility] Vitamin B12 415 230 - 1,250 pg/mL Blood 01/09/2025 12:3 0 PM CDT 01/09/2025 1:18 PM CDT us Shirley CHUN LAB BLOOD ORDERABLES Flora l Result Performing Organization Address [facility] de Phone Number [facility] [place] [address] * (ABNORMAL) Lipid panel (01/09/2025 12:30 PM [...] revised on 2018. Triglycerides 334(H) <=149 mg/dL [facility] Comment: Interpretive Data Ages < or = [...] revised on 2018. HDL 75 >=40 mg/dL [facility] Comment: Interpretive Data Ages < or = [...] on 2018. LDL, calculated 127 <=129 mg/dL [facility] Comment: Interpretive Data Ages < or = [...] 2024. Non-HDL Cholesterol 185 mg/dL [facility] Comment: Interpretive Data Ages < or = [...] last revised on 2018. Chol/HDL ratio 3 [facility] Blood 01/09/2025 12:3 0 PM CDT 01/09/2025 1:18 PM CDT Shirley CHUN LAB BLOOD ORDERABLES Flora dowd Result [facility] [place] [address] * (ABNORMAL) Comprehensive metabolic panel (01/09/2025 12:30 PM CDT) Sodium 139 135 - 145 mmol/L Potassium, pl 4.4 3.3 - 4.9 mmol/L [facility] Chloride 99 97 - 110 mmol/L [facility] CO2 27 22 - 32 mmol/L [facility] Anion gap 13 2 - 15 mmol/L [facility] BUN 22 6 - 25 mg/dL [facility] Creatinine 0.74 0.60 - 1.10 mg/dL [facility] Glucose 314(H) 70 - 199 mg/dL [facility] Comment: Interpretive Data Fasting glucose >/= 126 [...] - 10.3 mg/dL [facility] Bilirubin, total 0.3 0.1 - 1.2 mg/dL [facility] Protein, pl 6.7 6.5 - 8.5 g/dL [facility] Albumin 4.0 3.5 - 5.0 g/dL [facility] Alk phos 54 40 - 130 Units/L [facility] ALT 69(H) 7 - 45 Units/L [facility] AST 25 10 - 45 Units/L [facility] Blood 01/09/2025 12:3 0 PM CDT 01/09/2025 1:18 PM CDT Shirley CHUN LAB BLOOD ORDERABLES Flora dowd Result [facility] [place] [address] * Screening Mammogram Bilateral W Vincenzo (01/09/2025 [...] hemoglobin A1c (01/09/2025 10:44 AM CDT) Pathologist [facility] Hemoglobin A1C, POC 8.9(A) 4.0 - 5.6 % Blood 01/09/2025 10:4 4 AM CDT Shirley CHUN POINT OF CARE TEST ORDERA BLES Final Result * POCT glucose (01/09/2025 10:43 AM CDT) Pathologist [facility] Glucose Blood, POC 164 Normal Fasting 70 - 100, Random <200 mg/dL Blood 01/09/2025 10:4 3 AM CDT Shirley CHUN POINT OF CARE TEST ORDERA BLES Final Result * TRANSTHORACIC ECHO (TTE) COMPLETE W DOPPLER/CF WO CONTRAST (12/23/2024 7:43 AM CDT) Pathologist [facility] Estimated EF 55-60 % CONS SCIMAGE Anatomical Region Laterality Modality Ultrasound 12/23/2024 7:09 AM CDT Narrative 12/23/2024 9:46 AM CDT [address] [address] Echocardiogram Report Patient Name: WALT HUITRON : 1975 Study Date: 12/23/2024 7:09:04 AM Gender: F Tech: FILING MACHINE OPERATOR Location: Echo Lab 1 Ref Provider: CANELO [...] Procedure Note German Weathers MD - 12/23/[address] [address] Echocardiogram Report Patient Name: WALT HUITRON : 1975 Study Date: 12/23/2024 7:09:04 AM Gender: F Tech: FILING MACHINE OPERATOR Location: Echo Lab 1 Ref Provider: CANELO [...] 04/02/2022 9:28 AM CDT [facility] Patient Name: Walt Huitron Procedure Date: 04/02/2022 9:28 AM Date of : 1975 Admit Type: Outpatient Age: 46 Gender: Female Attending MD: Ad Camacho M.D. Room: [facility] ENDOSCOPY ROOM 2 Note Status: Finalized Patient [...] scope was passed under direct vision. TheColonoscope [id number] was introduced through the anus and advanced [...] 9:28 AM Procedure Code(s): --- Professional --- 74173, Colonoscopy, flexible; with biopsy, single or multiple Diagnosis Code(s): --- Professional --- Z12.11, Encounter for screening for malignant neoplasm of colon D12.3, Benign neoplasm of transverse colon (hepatic flexure orsplenic flexure) D12.4, Benign neoplasm of descending colon D12.8, Benign neoplasm of rectum CPT copyright 2020 [employer]. All rights reserved. The codes documented in this report are preliminary and upon cigar inspector reviewmay be revised to meet current compliance requirements. Recognized by the [employer] for promoting quality in endoscopy Ad Camacho MD ENDOSCOPY PROCEDURES Final Resul t * Diabetic Foot Exam (03/26/2021) Impressions Art Staley MA - 03/26/2021 In care everywhere Historical Provider HEALTH MAINTENANCE Final Result from Last 3 Months or Most Recently Relevant to Health Maintenance Insurance [employer] [facility] Advance Directives For more information, please contact: [phone] * Full Code (Latest Code Status on File) Date Activated Date Inactivated Comments 04/02/2022 9:27 AM 04/02/2022 4:47 PM * Full Code Date Activated Date Inactivated Comments 04/02/2022 9:27 AM 04/02/2022 9:27 AM Care Teams Optical Goods Drilling Machine Operator Relationship Specialty [place] [address] [facility] [address] [place] [address] PCP - General Internal Medicine 04/06/24 Ann Serrano MD Referring Physician Endocrinology Diabetes & Metabolism 06/08/20
--- OUTSIDE RECORDS SUMMARY | 2025-02-27 11:51 | XMS_ITS | Encounter Summary ---
Author Organization [facility] Address [address] [place] [address] Care Team Providers Care Student Affairs Vice President Name Role Phone Ann Serrano MD Unavailable [phone] Lynn Rodriguez MD Primary Care Provider Encounter Details Date Type Department Care Team (Late st Contact Info) Description 01/03/2025 Results Follow-Up [facility] Pulmonary at [address] [place] [address] Josiah Doan [address] [place] [address] Transthoracic Echo (TTE) Complete W [...] on file Legal Sex Female 11:54 PM TUGBOAT PILOT Gender Identity Female 09/19/2020 8:37 AM TUGBOAT PILOT Sexual Orientation Straight 09/19/2020 8: 37 AM TUGBOAT PILOT documented as of this encounter Plan of Treatment Upcoming Encounters Date Type Department Care Team (Latest Contact Info) Description 04/27/2025 7:30 AM CDT Hospital Encounter [address] [address] Ad Camacho MD [address] [facility] [address] [place] [address] 04/27/2025 7:30 AM CDT - 04/27/2025 8:00 AM CDT Surgery [address] [address] Ad Camacho MD [address] [facility] [place] [address] ESOPHAGOGASTRODUODENOSCOPY Scheduled Procedures Name Priority Associated Diagnoses Date/Ti ar ESOPHAGOGASTRODUODENOSCOPY Dysphagia, unspecified type 04/27/2025 7:30 AM CDT documented as of this encounter Visit Diagnoses Not on filedocumented in this encounter Care Teams Student Affairs Vice President Relationship Specialty [place] [address] [address] PCP - General Internal Medicine 04/06/24 Ann Serrano MD Referring Physician Endocrinology Diabetes & Metabolism 06/08/20 documented as of this encounter
--- OUTSIDE RECORDS SUMMARY | 2025-02-27 11:51 | XMS_ITS | Encounter Summary ---
Author Organization [facility] [employer] [facility] Address [address] [place] [address] Phone Care Team Providers Care Senior Java J2Ee Developer Name Role Phone Kishor Saleh MD Primary Care Provider [phone] Ann Serrano MD Unavailable [phone] No, Physician Primary Care Provider [phone] Kishor Saleh MD Primary Care Provider [phone] Lynn Rodriguez MD Primary Care Provider Encounter Details Date Type Department Care Team (Late st Contact Info) Description 09/30/2017 Orders Only [facility] ProviderStephenie MD [address] [place] [address] Social History Tobacco Use Types Packs/Day Years Used Date Smoking Tobacco: Never Smokeless Tobacco: Never Alcohol Use Standard Drinks/Week Comments No 0 (1 standard drink = 0.6 oz pur e alcohol) Comments Unknown Sex and Gender Information Value Date Recorded Sex Assigned at Not on file Legal Sex Female 11:54 PM ANDROID DEVELOPER Gender Identity Female 09/19/2020 8:37 AM ANDROID DEVELOPER Sexual Orientation Straight 09/19/2020 8: 37 AM ANDROID DEVELOPER documented as of this encounter Plan of Treatment Upcoming Encounters Date Type Department Care Team (Latest Contact Info) Description 04/27/2025 7:30 AM CDT Hospital Encounter [facility] [address] [place] [address] Ad Camacho MD [address] [place] [address] [address] [place] [address] 04/27/2025 7:30 AM CDT - 04/27/2025 8:00 AM CDT Surgery [facility] [address] [place] [address] Ad Camacho MD [address] [place] [address] [place] [address] ESOPHAGOGASTRODUODENOSCOPY Scheduled Procedures Name Priority Associated Diagnoses Date/Ti me ESOPHAGOGASTRODUODENOSCOPY Dysphagia, unspecified type 04/27/2025 7:30 AM CDT documented as of this encounter Procedures Procedure Name Priority Date/Time Associated Diagnosis Comments DISCHARGE LABORATORY CUMULATIVE REPORT 09/30/2017 12:00 AM ANDROID DEVELOPER documented in this encounter Results * DISCHARGE LABORATORY CUMULATIVE REPORT (09/30/2017 12:00 AM ANDROID DEVELOPER) Narrative 09/30/2017 12:00 AM ANDROID DEVELOPER Ordered by an unspecified provider. us Historical Provider LAB BLOOD ORDERABLES Flora l Result documented in this encounter Visit Diagnoses Not on filedocumented in this encounter Additional Health Concerns Infection Onset Date Last Indicated Resolved Time COVID: Suspected 08/13/2022 08/13/2022 08/13/2022 1:16 PM ANDROID DEVELOPER COVID: Suspected 11/07/2024 11/07/2024 11/07/2024 2:20 PM CDT documented as of this encounter Care Teams Senior Java J2Ee Developer Relationship Specialty Start Date End Date Kishor Saleh MD PCP - General 09/28/08 11/16/23 No, Physician PCP - General 11/17/23 12/28/23 Kishor Saleh MD [address] [address] PCP - General Internal Medicine 12/29/23 04/05/24 [place] [address] [facility] [address], [place] [address] PCP - General Internal Medicine 04/06/24 Ann Serrano MD Referring Physician Endocrinology Diabetes & Metabolism 06/08/20 documented as of this encounter
--- OUTSIDE RECORDS SUMMARY | 2025-02-27 11:51 | XMS_ITS | Clinical Summary ---
Author Organization [facility] Address [address] [facility] [place] [address] Care Team Providers Care Guide Escort Name Role Phone Kishor Saleh MD Primary Care Provider [phone] Source Comments [facility],non-owned Affiliates and Associated Physician Practices is amultiple site organization consisting of ambulatory clinics and hospital sitesin [place], [place], [place] and [place]. This disclosure is being madepursuant to the Care Everywhere program and may not contain all information available regarding this patient. Last updated 18.[facility] [facility] Allergies Active Allergy Reactions Criticality Noted Date [...] fluticasone propionate (Flonase) 50 MCG/ACT nasal spray Parker 2 (two) sprays into each nostril once [...] vitamin D, ergocalciferol , (Drisdol) 1.25 MG (02518 UT) capsule Take 1 (one) capsule by [...] any time in the past 12 m [facility], were you homeless or living in a retirement (including now)? No 08/15/2024 Comments Unknown Sex and Gender Information Value Date Recorded Sex Assigned at Not on file Legal Sex Female 4:50 AM RESPIRATORY THERAPIST ASSISTANT Gender Identity Not on file Sexual Orientation Not on file Last Filed Vital Signs Vital Sign Reading Time Taken Comments Blood Pressure 154/92 08/18/2024 12:25 PM RESPIRATORY THERAPIST ASSISTANT Pulse 102 08/18/2024 12:25 PM RESPIRATORY THERAPIST ASSISTANT Temperature 36.7 C (98.1 F) 08/18/2024 12:25 PM RESPIRATORY THERAPIST ASSISTANT Respiratory Rate 23 08/18/2024 12:2 5 PM RESPIRATORY THERAPIST ASSISTANT Oxygen Saturation 90% 08/18/2024 12: 25 PM RESPIRATORY THERAPIST ASSISTANT Inhaled Oxygen Concentration 21% 08/18/2024 2 :00 PM RESPIRATORY THERAPIST ASSISTANT Weight 132.6 kg (292 lb 4.8 oz) 08/18/2024 4:00 AM RESPIRATORY THERAPIST ASSISTANT Height 167.6 cm (5' 6) 08/13/2024 5:14 PM RESPIRATORY THERAPIST ASSISTANT Body Mass Index 47.18 08/13/2024 5:14 PM RESPIRATORY THERAPIST ASSISTANT Plan of Treatment Health Maintenance Due [...] (CALCIUM TOTAL) AM Draw 08/17/2024 4:16 AM RESPIRATORY THERAPIST ASSISTANT HEMOGLOBIN A1C Routine 08/14/2024 3:27 AM RESPIRATORY THERAPIST ASSISTANT from Last 3 Months or Most Recently Relevant to Health Maintenance Results * (ABNORMAL) BASIC METABOLIC PANEL (CALCIUM TOTAL) (08/17/2024 4:16 AM RESPIRATORY THERAPIST ASSISTANT) Glucose 139(H) 70 - 99 mg/dL 08/17/2024 4:53 AM RESPIRATORY THERAPIST ASSISTANT [facility] Sodium 140 136 - 145 mmol/L 08/17/2024 4:53 AM RESPIRATORY THERAPIST ASSISTANT [facility] Potassium 3.5 3.5 - 5.1 mmol/L 08/17/2024 4:53 AM RESPIRATORY THERAPIST ASSISTANT [facility] Chloride 108(H) 98 - 107 mmol/L 08/17/2024 4:53 AM RESPIRATORY THERAPIST ASSISTANT [facility] CO2 24 22 - 29 mmol/L 08/17/2024 4:53 AM RESPIRATORY THERAPIST ASSISTANT [facility] Calcium 8.9 8.4 - 10.4 mg/dL 08/17/2024 4:53 AM [facility] Anion Gap 8 6 - 16 mmol/L 08/17/2024 4:53 AM [facility] BUN 15 5.3 - 18.7 mg/dL 08/17/2024 4:53 AM [facility] Creatinine 0.65 0.57 - 1.11 mg/dL 08/17/2024 4:53 AM [facility] eGFR by CKD-EPI >90 >=90 mL/min/1.7 3 m2 08/17/2024 4:53 AM [facility] Blood BLOOD SPECIMEN / Unknown Venipuncture / Unknown 08/17/2024 4:16 AM RESPIRATORY THERAPIST ASSISTANT 08/17/2024 4:30 AM [facility] Alexus Ramirez MD LAB - CHEMISTRY ORDERABLES Final Result [facility] [address] [place] [address] * (ABNORMAL) HEMOGLOBIN A1C (08/14/2024 3:27 AM [facility]) Hemoglobin A1c 10.1(H) <5.7 % 08/14/2024 3:48 AM [facility] Estimated Average Glucose 243 mg/dL 08/14/2024 3:48 AM [facility] Blood BLOOD SPECIMEN / Unknown Venipuncture / Unknown 08/14/2024 3:27 AM RESPIRATORY THERAPIST ASSISTANT 08/14/2024 3:37 AM [facility] Narrative [facility] - 08/14/2024 3:48 AM [facility] HbA1c Interpretation: Normal: < 5.7% Pre-diabetes: 5.7-6.4% [...] MD LAB - CHEMISTRY ORDERABLES Final Result [facility] [address] [place] [address] from Last 3 Months or Most Recently Relevant to Health Maintenance Insurance [facility] Advance Directives * Full Code (Latest Code Status on File) Date Activated Date Inactivated Comments 08/13/2024 3:54 PM 08/18/2024 6:24 PM Care Teams Guide Escort Relationship Specialty Start Date End Date Kishor Saleh MD [address] [facility] [address] [address] PCP - General Internal Medicine 07/31/23
--- OUTSIDE RECORDS SUMMARY | 2025-02-27 11:51 | XMS_ITS | Encounter Summary ---
Author Organization [facility] Address [address] [facility] [address] Care Team Providers Care General Accounting Clerk Name Role Phone Tiffany Cox MD Primary Care Provider Unavailable Kishor Saleh MD Primary Care Provider [phone] Encounter Details Date Type Department Care Team (Late st Contact Info) Description 07/03/2023 Lab Requisition [facility] - DermPath Lab [address] [place] [address] [place] [address] [address] Social History Tobacco Use Types Packs/Day Years Used Date Smoking Tobacco: Never Assessed Comments Unknown Sex and Gender Information Value Date Recorded Sex Assigned at Not on file Legal Sex Female 4:50 AM PRIMARY SCHOOL TEACHER Gender Identity Not on file Sexual Orientation Not on file documented as of this encounter Plan of Treatment Not on file documented as of this encounter Procedures Procedure Name Priority Date/Time Associated Diagnosis Comments IMMUNOFLUORESCENT STUDY DERM Routine 07/01/2023 3:33 AM PRIMARY SCHOOL TEACHER documented in this encounter Results * IMMUNOFLUORESCENT STUDY DERM (07/01/2023 3:33 AM PRIMARY SCHOOL TEACHER) Case Report Dermatopathol ogy Report Case: [id number] Authorizing Provider: Kendrick Christopher MD Collected: 07/01/2023 03:33 AM Ordering Location: [facility] Received: 07/03/2023 12:13 PM Pathologist: Bella Schwab MD Specimen: Skin, right superior han 3:46 PM [facility] Final Diagnosis Specimen A. SKIN, right superior han: COLLOID BODIES (L98.9) (see microscopic description) (see fixed tissue results) 3 3:46 PM [facility] at [address]46 PRIMARY SCHOOL TEACHER Direct Immunofluorescence Report - Specimen A Specimen A IgA IgM IgG C3 CollV Fibrinogen Epidermis Negative Negative Negative Negative Negative Negative Basement Membrane Negative Negative Negative Negative 2+ Negative Vessels Negative Negative Negative Negative 2+ Negative Interstitium Colloid Colloid Colloid Negative Negative Non specific 3 3:46 PM [facility] Clinical History Rash; R/O Leukocytoclas tic Vasculitis, Livedo Reticularis 3 3:46 PM [facility] Gross Description Specimen A: Received is one Jatinder's media filled container labeled with the patient's name and designated right superior han. The specimen consists of a punch biopsy measuring 5x4x4 mm. The specimen is submitted in whole for direct immunofluores cence testing. 3:46 PM [facility] Microscopic Description Specimen A. [...] See fixed tissue results. 3 3:46 PM [facility] Disclaimer An external and internal positive and negative controls are appropriate for the histochemical , immunohistoch emical and immunofluores cence stain(s) in this case (if any), except where stated explicitly. The performance characteristi cs of the stain(s) cited in this report were developed and its performance characteristi c determined by the Dermatopathol ogy Laboratory at [facility], directed by Dr. Arnol Perea. These tests need not be, and therefore are not, approved by the [place] Food and Drug Administratio n. The tests are used for clinical purposes. Billing Codes Specimen Charges Stain Charges 13033 [id number] 60152 [id number] [id number] 1 1 1 1 1 1 3 3:46 PM PRIMARY SCHOOL TEACHER DERMATOPATH[facility]Y LAB[facility]ORY Embedded Images 3 3:46 PM PRIMARY SCHOOL TEACHER DERMATOPATHOLOGY LAB[facility]ORY Pathology/Cytolo gy TISSUE SPECIMEN FROM SKIN / Unknown 07/01/2023 3:33 AM PRIMARY SCHOOL TEACHER 07/03/2023 12:13 PM PRIMARY SCHOOL TEACHER Kendrick Christopher MD LAB - PATHOLOGY/CYTOLOGY O RDERABLES Final Result [facility]ER[facility]OPATHOLOGY LABORAT[facility] - Department of Dermatology [facility] Medicine [address] [place] [address], [address] [phone] documented in this encounter Visit Diagnoses Not on filedocumented in this encounter Additional Health Concerns Infection Onset Date Last Indicated Resolved Time COVID-19 Under Investigation 08/13/2024 08/13/2024 08/13/2024 11:30 PM PRIMARY SCHOOL TEACHER documented as of this encounter Care Teams General Accounting Clerk Relationship Specialty Start Date End Date Tiffany Cox MD PCP - General Internal Medicine 05/16/13 07/30/23 Kishor Saleh MD [address] [place] [address] [address] [place] [address] PCP - General Internal Medicine 07/31/23 documented as of this encounter
--- OUTSIDE RECORDS SUMMARY | 2025-02-27 11:51 | XMS_ITS | Encounter Summary ---
Author Organization [facility] Address [address] [facility] [place] [address] Care Team Providers Care Metal Riveting Machine Operator Name Role Phone Tiffany Cox MD Primary Care Provider Unavailable Kishor Saleh MD Primary Care Provider Encounter Details Date Type Department Care Team (Late st Contact Info) Description 07/03/2023 Lab Requisition [facility] - DermPath Lab [address] [place] [id number] [place] [address] [facility] [address] [place] [address] Social History Tobacco Use Types Packs/Day Years Used Date Smoking Tobacco: Never Assessed Comments Unknown Sex and Gender Information Value Date Recorded Sex Assigned at Not on file Legal Sex Female 4:50 AM COMPANY MARKER Gender Identity Not on file Sexual Orientation Not on file documented as of this encounter Plan of Treatment Not on file documented as of this encounter Visit Diagnoses Not on filedocumented in this encounter Additional Health Concerns Infection Onset Date Last Indicated Resolved Time COVID-19 Under Investigation 08/13/2024 08/13/2024 08/13/2024 11:30 PM COMPANY MARKER documented as of this encounter Care Teams Metal Riveting Machine Operator Relationship Specialty Start Date End Date Tiffany Cox MD PCP - General Internal Medicine 05/16/13 07/30/23 Kishor Saleh MD [address] [place] [address] [address] [place] [address] PCP - General Internal Medicine 07/31/23 documented as of this encounter
--- OUTSIDE RECORDS SUMMARY | 2025-02-27 11:51 | XMS_ITS | Encounter Summary ---
Author Organization [facility] Address [address] [place] [address] Care Team Providers Care Yarn Hauler Name Role Phone Ann Serrano MD Unavailable [phone] Lnyn Rodriguez MD Primary Care Provider Encounter Details Date Type Department Care Team (Late st Contact Info) Description 01/09/2025 Results Follow-Up [facility] Sleep Medicine at [address] [place] [address] Iqra Jensen MD [address] [place] [address] [address] [place] [address] Ferritin Social History Tobacco Use [...] on file Legal Sex Female 11:54 PM CRACKING AND FANNING MACHINE OPERATOR Gender Identity Female 09/19/2020 8:37 AM CRACKING AND FANNING MACHINE OPERATOR Sexual Orientation Straight 09/19/2020 8: 37 AM CRACKING AND FANNING MACHINE OPERATOR documented as of this encounter Miscellaneous [...] 04/27/2025 7:30 AM CDT Hospital Encounter [address] [address] Ad Camacho MD [address] [place] [address] [address] [place] [address] 04/27/2025 7:30 AM CDT - 04/27/2025 8:00 AM CDT Surgery [address] [address] Ad Camacho MD [address] [place] [address] [address] [place] [address] ESOPHAGOGASTRODUODENOSCOPY Scheduled Procedures Name Priority Associated Diagnoses Date/Ti de ESOPHAGOGASTRODUODENOSCOPY Dysphagia, unspecified type 04/27/2025 7:30 AM CDT documented as of this encounter Visit Diagnoses Not on filedocumented in this encounter Care Teams Yarn Hauler Relationship Specialty [place] [address] [address] PCP - General Internal Medicine 04/06/24 Ann Serrano MD Referring Physician Endocrinology Diabetes & Metabolism 06/08/20 documented as of this encounter
--- OUTSIDE RECORDS SUMMARY | 2025-02-27 11:51 | XMS_ITS | Encounter Summary ---
Author Organization [facility] Health Address [address] [place] [address] Care Team Providers Care Patient Care Coordinator Name Role Phone Tiffany Cox MD Primary Care Provider Unavailable Kishor Saleh MD Primary Care Provider Encounter Details Date Type Department Care Team (Late st Contact Info) Description 07/03/2023 Lab Requisition [facility] [address] [place] [phone] [place] [address] [facility] [address] S[address] [place] [address] Social History Tobacco Use Types Packs/Day Years Used Date Smoking Tobacco: Never Assessed Comments Unknown Sex and Gender Information Value Date Recorded Sex Assigned at Not on file Legal Sex Female 4:50 AM ADVERTISING SUPERVISOR Gender Identity Not on file Sexual Orientation Not on file documented as of this encounter Plan of Treatment Not on file documented as of this encounter Visit Diagnoses Not on filedocumented in this encounter Additional Health Concerns Infection Onset Date Last Indicated Resolved Time COVID-19 Under Investigation 08/13/2024 08/13/2024 08/13/2024 11:30 PM ADVERTISING SUPERVISOR documented as of this encounter Care Teams Patient Care Coordinator Relationship Specialty Start Date End Date Tiffany Cox MD PCP - General Internal Medicine 05/16/13 07/30/23 Kishor Saleh MD [address] [place] [address] DR S[address] [place] [address] PCP - General Internal Medicine 07/31/23 documented as of this encounter
--- OUTSIDE RECORDS SUMMARY | 2025-02-27 11:51 | XMS_ITS | Encounter Summary ---
Author Organization [facility] Address [address] [place] [address] Phone Care Team Providers Care Batcher Operator Name Role Phone Ann Serrano MD Unavailable [phone] Lynn Rodriguez MD Primary Care Provider Encounter Details Date Type Department Care Team (Late st Contact Info) Description 01/09/2025 Results Follow-Up [facility] Endocrinology Metabolism and Lipid [address] [facility] 13th [place] [address] [place] [phone] Shirley Teixeira PA [address] [place] [address] Vitamin D 25 hydroxy, Vitamin B12, TSH, [...] on file Legal Sex Female 11:54 PM AUTOMOTIVE GLAZIER Gender Identity Female 09/19/2020 8:37 AM AUTOMOTIVE GLAZIER Sexual Orientation Straight 09/19/2020 8: 37 AM AUTOMOTIVE GLAZIER documented as of this encounter Ordered Prescriptions [...] Description 04/27/2025 7:30 AM CDT Hospital Encounter [address] [address]Ad Garcia MD [address] [place] [address] [address] [place] [address] 04/27/2025 7:30 AM CDT - 04/27/2025 8:00 AM CDT Surgery [address] [address]Ad Garcia MD [address] [place] [address] [address] [place] [address] ESOPHAGOGASTRODUODENOSCOPY Scheduled Orders Name Type Priority Associated Diagnoses Orde r Schedule Hepatic function panel Lab Routine Elevated liver function tests Expected: 01/12/2025, Expires: 01/09/2026 Scheduled Procedures Name Priority Associated Diagnoses Date/Ti nh ESOPHAGOGASTRODUODENOSCOPY Dysphagia, unspecified type 04/27/2025 7:30 AM [...] documented as of this encounter Care Teams Batcher Operator Relationship Specialty [place] [address] [facility] [address], [place] [address] PCP - General Internal Medicine 04/06/24 Ann Serrano MD Referring Physician Endocrinology Diabetes & Metabolism 06/08/20 documented as of this encounter
--- OUTSIDE RECORDS SUMMARY | 2025-02-27 11:51 | XMS_ITS | Encounter Summary ---
Author Organization [facility] Address [address] [facility] [place] [address] Care Team Providers Care Recruitment Assistant Name Role Phone Tiffany Cox MD Primary Care Provider Unavailable Kishor Saleh MD Primary Care Provider Encounter Details Date Type Department Care Team (Late st Contact Info) Description 07/03/2023 Lab Requisition [facility] - Derm[facility] Lab [address] [place] [address] [place] [address] [address] Social History Tobacco Use Types Packs/Day Years Used Date Smoking Tobacco: Never Assessed Comments Unknown Sex and Gender Information Value Date Recorded Sex Assigned at Not on file Legal Sex Female 4:50 AM OUTPATIENT THERAPIST Gender Identity Not on file Sexual Orientation Not on file documented as of this encounter Plan of Treatment Not on file documented as of this encounter Procedures Procedure Name Priority Date/Time Associated Diagnosis Comments DERMATOPATHOLOGY Routine 07/01/2023 3:33 AM OUTPATIENT THERAPIST documented in this encounter Results * DERMATOPATHOLOGY (07/01/2023 3:33 AM OUTPATIENT THERAPIST) Case Report Dermatopathology Report Case: [id number] Authorizing Provider: Kendrick Christopher MD Collected: 07/01/2023 03:33 AM Ordering Location: [facility] DermPath Lab Received: 07/03/2023 12:12 PM Pathologist: Bella Schwab MD Specimen: Skin, right inferior knee 3:45 PM [facility] [[email or web address]] DERMATOPATHOLOGY LABORATORY Final Diagnosis Specimen A. SKIN, right inferior knee: STASIS DERMATITIS (L30.8) DERMAL FIBROSIS (L90.5) (see microscopic description) 3 3:45 PM [facility] [[email or web address]] DERMATOPATHOLOGY LABORATORY at 1545 OUTPATIENT THERAPIST Clinical History Rash; R/O Leukocytoclastic Vasculitis, Livedo Reticularis 3 3:45 PM [facility] [[email or web address]] DERMATOPATHOLOGY LABORATORY Gross Description Specimen A: Received is one formalin filled container labeled with the patient's name and designated right inferior knee. The specimen consists of a punch biopsy measuring 6x5x6 mm. Jar 0. 3:45 PM [facility] [[email or web address]] DERMATOPATHOLOGY LABORATORY Microscopic Description Specimen A. SKIN, [...] sections were obtained and reviewed. 3:45 PM [facility] [[email or web address]] DERMATOPATHOLOGY LABORATORY Disclaimer An external and internal positive and negative controls are appropriate for the histochemical, immunohistochemical and immunofluorescence stain(s) in this case (if any), except where stated explicitly. The performance characteristics of the stain(s) cited in this report were developed and its performance characteristic determined by the Dermatopathology Laboratory at [facility], directed by Dr. Arnol Perea. These tests need not be, and therefore are not, approved by the [place] Food and Drug Administration. The tests are used for clinical purposes. Billing Codes Specimen Charges Stain Charges 31018 1 37445 1 3 3:45 PM [facility] [[email or web address]] DERMATOPATHOLOGY LABORATORY Embedded Images 3 3:45 PM [facility] [[email or web address]] DERMATOPATHOLOGY LABORATORY Pathology/Cytolo gy TISSUE SPECIMEN FROM SKIN / Unknown 07/01/2023 3:33 AM OUTPATIENT THERAPIST 07/03/2023 12:12 PM OUTPATIENT THERAPIST Kendrick Christopher MD LAB - PATHOLOGY/CYTOLOGY O RDERABLES Final Result DERMATOPATHOLOGY LABORATORY [facility] - Department of Dermatology [facility] [place] [facility] Medicine [address] [place] [address], [address] [phone] documented in this encounter Visit Diagnoses Not on filedocumented in this encounter Additional Health Concerns Infection Onset Date Last Indicated Resolved Time COVID-19 Under Investigation 08/13/2024 08/13/2024 08/13/2024 11:30 PM OUTPATIENT THERAPIST documented as of this encounter Care Teams Recruitment Assistant Relationship Specialty Start Date End Date Tiffany Cox MD PCP - General Internal Medicine 05/16/13 07/30/23 Kishor Saleh MD [address] [place] [address] DR [address] [place] [address] PCP - General Internal Medicine 07/31/23 documented as of this encounter
--- OUTSIDE RECORDS SUMMARY | 2025-02-27 11:51 | XMS_ITS | Encounter Summary ---
Author Organization [facility] Address [address] [place] [address] Phone Care Team Providers Care Executive Administrative Assistant Name Role Phone Ann Serrano MD Unavailable [phone] Lynn Rodriguez MD Primary Care Provider Encounter Details Date Type Department Care Team (Late st Contact Info) Description 01/24/2025 Results Follow-Up [facility] Rheumatology [address] [facility] 5th [place] [address] [place] [address] Lucian Trinidad MD PhD [address] [place] [address] XR Wrist Right 3 or [...] on file Legal Sex Female 11:54 PM ORDERLY Gender Identity Female 09/19/2020 8:37 AM ORDERLY Sexual Orientation Straight 09/19/2020 8: 37 AM ORDERLY documented as of this encounter Plan of Treatment Upcoming Encounters Date Type Department Care Team (Latest Contact Info) Description 04/27/2025 7:30 AM CDT Hospital Encounter [address] [address] Ad Camacho MD [address] [facility] [address] [place] [address] 04/27/2025 7:30 AM CDT - 04/27/2025 8:00 AM CDT Surgery [address] [address] Ad Camacho MD [address] [facility] [address] [place] [address] ESOPHAGOGASTRODUODENOSCOPY Scheduled Procedures Name Priority Associated Diagnoses Date/Ti tx ESOPHAGOGASTRODUODENOSCOPY Dysphagia, unspecified type 04/27/2025 7:30 AM CDT documented as of this encounter Visit Diagnoses Not on filedocumented in this encounter Care Teams Executive Administrative Assistant Relationship Specialty [place] [id number] [address] PCP - General Internal Medicine 04/06/24 Ann Serrano MD Referring Physician Endocrinology Diabetes & Metabolism 06/08/20 documented as of this encounter
--- OUTSIDE RECORDS SUMMARY | 2025-02-27 11:51 | XMS_ITS | Encounter Summary ---
Author Organization [facility] Health Address [address] [place] [address] Care Team Providers Care Insurance Specialist Name Role Phone Tiffany Cox MD Primary Care Provider Unavailable Kishor Saleh MD Primary Care Provider Encounter Details Date Type Department Care Team (Late st Contact Info) Description 07/03/2023 Lab Requisition [facility] [address] [place] [phone] [place] [address] [facility] [address] [place] [address] Social History Tobacco Use Types Packs/Day Years Used Date Smoking Tobacco: Never Assessed Comments Unknown Sex and Gender Information Value Date Recorded Sex Assigned at Not on file 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 Gender Identity Not on file Sexual Orientation Not on file documented as of this encounter Plan of Treatment Not on file documented as of this encounter Visit Diagnoses Not on filedocumented in this encounter Additional Health Concerns Infection Onset Date Last Indicated Resolved Time COVID-19 Under Investigation 08/13/2024 08/13/2024 08/13/2024 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
[2025-02-27 12:22] LABS: Hematocrit 35.2 % (37.0-47.0); Hemoglobin 11.3 g/dL (12.0-15.0); Immature Granulocyte Percent A 1.7 % (0-0.5); Lymphocytes Absolute Auto 0.78 K/mm3 (0.9-3.2); Mean Corpuscular HGB Conc 32.1 g/dl (32-36); Mean Corpuscular Hemoglobin 29.7 pg (26-34); Mean Corpuscular Volume 92.4 fl (80-100); Nucleated Red Blood Cells Absolute Auto 0.000 K/mm3 (0.0-0.012); Nucleated Red Blood Cells Perc 0.0 % (0.0-0.2); Platelet Count Result 351 k/mm3 (150-375); Red Blood Count 3.81 M/mm3 (4.2-5.4); White Blood Count 11.9 K/mm3 (4.5-10.0)
--- NOTE | 2025-02-27 12:25 | ED_ITS ---
HPI - General Adult General Chief complaint: Extremity Problem,Nontraumatic Stated complaint: right leg pain, redness, edema, fluid leak Time Seen by Provider: 02/27/25 11:34 History of Present Illness HPI narrative: 49-year-old female history of cellulitis versus vasculitis presented to the emergency department for evaluation for worsening lower extremity edema. Patient also reports she does have a longstanding history of lower extremity edema. Patient reports she has had extensive cardiac workup but denies any abnormalities. Patient states she does not take a diuretic. Patient states she takes 40 mg of prednisone daily for the Related Data Home Medications ?Medication ?Instructions ?Recorded ?Confirmed ?Last Taken ?Type atorvastatin 20 mg tablet 20 mg PO HS 10/15/20 02/27/25 12/13/24 History loratadine 10 mg tablet (Claritin) 10 mg PO DAILY 10/15/20 02/27/25 05/24/23 History montelukast 10 mg tablet 10 mg PO HS 10/15/20 02/27/25 12/13/24 History insulin lispro-aabc 100 unit/mL 1 sliding scale dose subcut AC 05/25/23 02/27/25 12/13/24 History subcutaneous pen (Lyumjev KwikPen U-100 Insulin) tirzepatide 5 mg/0.5 mL 10 mg subcut WEEKLY 05/25/23 02/27/25 12/10/24 History subcutaneous pen injector (Mounjaro) venlafaxine 150 mg 150 mg PO QAM 05/25/23 02/27/25 12/13/24 History capsule,extended release 24 hr albuterol sulfate 2.5 mg/3 mL 2.5 mg inhalation DAILY PRN 08/10/23 02/27/25 Unknown History (0.083 %) solution for nebulization Shortness Of Breath cetirizine 10 mg tablet (All Day 10 mg PO DAILY 08/10/23 02/27/25 02/27/25 History Allergy (cetirizine)) ergocalciferol (vitamin D2) 50,000 unit PO .COMPLEX 08/10/23 02/27/25 12/11/24 History prednisone 20 mg tablet 40 mg PO DAILY@0800 08/10/23 02/27/25 02/27/25 History cyclobenzaprine 10 mg tablet 10 mg PO HS 12/02/27/25 12/13/24 History diclofenac sodium 75 mg 75 mg PO BID 07/31/24 02/27/25 12/13/24 History tablet,delayed release folic acid 1 mg tablet 1 mg PO DAILY 07/31/24 02/27/25 12/13/24 History hydroxychloroquine 200 mg tablet 400 mg PO HS 07/31/24 02/27/25 12/13/24 History insulin glargine 100 unit/mL (3 45 unit subcut BID 07/31/24 02/27/25 02/27/25 History mL) subcutaneous pen (Lantus Solostar U-100 Insulin) lisinopril 20 mg tablet 40 mg PO HS 07/31/24 02/27/25 12/13/24 History methotrexate sodium 2.5 mg tablet 12.5 mg PO WEEKLY 07/31/24 02/27/25 07/28/24 History pantoprazole 40 mg tablet,delayed 40 mg PO DAILY 07/31/24 02/27/25 12/13/24 History release acetaminophen 500 mg tablet 1,000 mg PO BID 09/23/24 02/27/25 12/13/24 History famotidine 20 mg tablet (Acid 20 mg PO HS 09/23/24 02/27/25 12/13/24 History Controller) magnesium 200 mg tablet 400 mg PO DAILY 09/23/24 02/27/25 12/13/24 History magnesium salicylate 162.5 1 tablet PO DAILY 09/23/24 02/27/25 Unknown History mg-caffeine 50 mg tablet (Diurex) potassium 99 mg tablet 99 mg PO DAILY 09/23/24 02/27/25 02/27/25 History albuterol sulfate 90 mcg/actuation 2 puff inhalation Q8H PRN 10/03/24 02/27/25 Unknown History aerosol inhaler shortness of breath or wheezing gabapentin 300 mg capsule 300 mg PO TID 02/27/25 02/27/25 02/27/25 History Allergies Allergy/AdvReac Type Severity Reaction Status Date / Time amoxicillin AdvReac Unknown Nausea and Verified 02/27/25 10:29 Vomiting glipizide AdvReac Unknown NAUSEA AND Verified 02/27/25 10:29 VOMITING hydrocodone AdvReac Unknown Nausea and Verified 02/27/25 10:29 Vomiting metformin AdvReac Unknown Nausea and Verified 02/27/25 10:29 Vomiting Review of Systems 2 Review of Systems: All systems reviewed & are unremarkable except as noted in HPI and below PMFSH Past Medical History Medical History Immunocompromised Vasculitis Depression JEREMY on CPAP Hypertension Hypercholesterolemia Diabetes Surgical History Surgical History H/O arthroscopy H/O myomectomy Family History Family History Mother Diabetes mellitus Myocardial infarction Uterine cancer Father Cancer of blood vessel Sibling Diabetes mellitus Social History Social History Smoking status: Never smoker Second hand tobacco smoke exposure: Yes (not often) Alcohol intake: never Drinks per week: 1 Substance use: never Substance use type: does not use Do You Feel Safe in your Home?: Yes Lack of Transportation: No Lack of Food: Never True Current Housing: I Have Housing Concerned About Future Housing: No Difficulty Paying Gas/Electric Bills: No Difficulty Paying for Meds: No Currently Unemployed: No Education: High School Diploma/GED Difficulty w/ Childcare or Family Care: No Spiritual care concerns: No Exam 2 Narrative: APPEARANCE: Well appearing, no pain, no distress, well-nourished. HEAD: normocephalic, atraumatic. EYES: PERRLA/EOMI, conjunctivae clear. NOSE: Normal no drainage EARS:TMS clear with good light reflex. THROAT: Pharynx clear, no exudate. NECK: Supple. No adenopathy, no masses. RESPIRATORY: Airway patent, respirations nonlabored. Clear to auscultation bilaterally, no rales, rhonchi, wheezing. CARDIOVASCULAR: Regular rate and rhythm without murmurs rubs or gallops. ABDOMINAL: Soft, nontender, nondistended, normal bowel sounds MUSCULOSKELETAL: Moves all extremities. Strength/ROM intact, +3 pitting edema NEURO: Alert. Cranial nerves II through XII intact. Good gait. Good coordination SKIN: Bilateral lower extremity edema and erythema worse on the right than left Course Vital Signs Vital signs: Vital Signs Temperature 96.9 F L 02/27/25 10:22 Pulse Rate 103 H 02/27/25 10:22 Respiratory Rate 20 02/27/25 10:22 Blood Pressure 192/86 H 02/27/25 10:22 Pulse Oximetry 97 02/27/25 10:22 Oxygen Delivery Room Air 02/27/25 10:22 Temperature 97.5 F L 02/27/25 14:39 Pulse Rate 105 H 02/27/25 14:39 Respiratory Rate 20 02/27/25 14:39 Blood Pressure 172/99 H 02/27/25 14:39 Pulse Oximetry 98 02/27/25 14:39 Oxygen Delivery Room Air 02/27/25 15:20 Medical Decision Making MDM Narrative Medical decision making narrative: 41-year-old female with history of vasculitis and possible cellulitis presented emergency department for evaluation for worsening lower extremity edema and erythema. Patient is currently on a steroid taper from 40 mg daily and she is currently decreased down to 30 mg daily. Patient reports her symptoms started when she began the taper at 35 mg daily. Patient reports he does have a significant cardiac workup and has had no abnormalities identified. Patient does have multiple areas of skin breakdown on legs bilaterally with +3 pitting edema. Blood cultures were ordered and patient was started on IV antibiotics. Patient was also treated with IV Lasix. I discussed the case with the hospitalist patient will be admitted for further evaluation. No further steroids were given in the emergency department. Differential Diagnosis Differential Diagnosis: Vasculitis, cellulitis, CHF, DVT Vital Signs Vital Signs: Vital Signs Temperature 96.9 F L 02/27/25 10:22 Pulse Rate 103 H 02/27/25 10:22 Respiratory Rate 20 02/27/25 10:22 Blood Pressure 192/86 H 02/27/25 10:22 Pulse Oximetry 97 02/27/25 10:22 Oxygen Delivery Room Air 02/27/25 10:22 Temperature 97.5 F L 02/27/25 14:39 Pulse Rate 105 H 02/27/25 14:39 Respiratory Rate 20 02/27/25 14:39 Blood Pressure 172/99 H 02/27/25 14:39 Pulse Oximetry 98 02/27/25 14:39 Oxygen Delivery Room Air 02/27/25 15:20 Lab Data Lab results reviewed: Yes I reviewed the patient's lab results. 02/27/25 12:12 02/27/25 12:12 Labs: Lab Results 02/27/25 02/27/25 Range/Units 11:04 12:12 WBC 11.9 H (4.5-10.0) K/mm3 RBC 3.81 L (4.2-5.4) M/mm3 Hgb 11.3 L (12.0-15.0) g/dL Hct 35.2 L (37.0-47.0) % MCV 92.4 (80-100) fl MCH 29.7 (26-34) pg MCHC 32.1 (32-36) g/dl RDW 14.6 H (11.5-14.5) % Plt Count 351 (150-375) k/mm3 MPV 10.4 (7.4-10.4) fl Immature Gran % (Auto) 1.7 H (0-0.5) % Neut % (Auto) 86.7 H (45.5-73.1) % Lymph % (Auto) 6.6 L (18.3-44.2) % [place] % (Auto) 4.5 (2.6-8.5) % Eos % (Auto) 0.0 (0-4.4) % Baso % (Auto) 0.5 (0.2-1.2) % Lymph # (Auto) 0.78 L (0.9-3.2) K/mm3 [place] # (Auto) 0.5 (0.1-0.6) K/mm3 Eos # (Auto) 0.0 (0-0.3) K/mm3 Baso # (Auto) 0.1 (0.0-0.1) K/mm3 Abs Immat Gran (auto) 0.20 H (0.00-0.031) K/mm3 Absolute Neuts (auto) 10.3 H (1.3-6.7) K/mm3 Absolute Nucleated RBC 0.000 (0.0-0.012) K/mm3 Nucleated RBC % 0.0 (0.0-0.2) % Sodium 136 L (137-145) mmol/L Potassium 4.6 (3.4-5.0) mmol/L Chloride 102 (98-107) mmol/L Carbon Dioxide 25 (22-30) mmol/L Anion Gap 9 (4-12) mmol/L BUN 19 H (7-17) mg/dL Creatinine 0.67 L (0.7-1.0) mg/dL Estim Creat Clear Calc 130 ml/min Estimated GFR > 60 (59 - ) Glucose 326 H (65-110) mg/dL POC Capillary Glucose 311 H (65-105) mg/dl Calcium 9.2 (8.4-10.2) mg/dL Total Bilirubin 0.3 (0.2-1.3) mg/dL AST 32 (14-36) U/L ALT 76 H (6-35) U/L Alkaline Phosphatase 73 (38-126) U/L Total Protein 6.5 (6.3-8.2) g/dL Albumin 3.8 (3.5-5.1) g/dL Imaging Data My impression: No acute cardiopulmonary abnormality Discharge Plan Discharge Clinical Impression: Vasculitis Cellulitis Qualifiers: Site of cellulitis: extremity Site of cellulitis of extremity: lower extremity Laterality: right Qualified Code(s): L03.115 - Cellulitis of right lower limb Patient Disposition: Still a Patient Condition: Stable
[2025-02-27 12:47] LABS: Alanine Aminotransferase 76 U/L (6-35); Albumin Level 3.8 g/dL (3.5-5.1); Alkaline Phosphatase 73 U/L (38-126); Anion Gap 9 mmol/L (4-12); Aspartate Amino Transferase 32 U/L (14-36); Bilirubin,Total 0.3 mg/dL (0.2-1.3); Blood Urea Nitrogen 19 mg/dL (7-17); Calcium 9.2 mg/dL (8.4-10.2); Carbon Dioxide 25 mmol/L (22-30); Chloride 102 mmol/L (98-107); Estimated CRCL calculation 130 ml/min; Estimated Glomerular Filt Rate > 60; Glucose 326 mg/dL (65-110); Potassium 4.6 mmol/L (3.4-5.0); Sodium 136 mmol/L (137-145); Total Protein 6.5 g/dL (6.3-8.2)
[2025-02-27 13:17] VITALS: BP 158/107; PULSE 98; RESP 20; O2SAT 99
[2025-02-27] MEDS: ceFAZolin 1 GM in SODIUM CHLORIDE 0.9% IV 50 ML 100 ML IVPB ×2 (13:35→21:33)
[2025-02-27] MEDS: FUROSEMIDE INJ 40 MG/4 ML VIAL IV PUSH ×2 (13:35→20:10)
[2025-02-27 14:04] VITALS: BP 179/113; PULSE 100; RESP 20; O2SAT 98
--- NOTE | 2025-02-27 14:20 | P.HP_ITS ---
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 The patient presents here from home for further evaluation of worsening lower extremity edema and redness. She reports onset of worsening symptoms over the last week. Reporting accompanying chills. She denies accompanying fever. She reports a past medical history significant for vasculitis and lower extremity edema that has been ongoing/intermittent for years. She has been on Prednisone 40 mg for vasculitis since early 2023. Recently started decreasing her steroid dose to in the 30s when the redness returned. She reports she has undergone extensive cardiac workup to rule out a cardiac etiology for her lower extremity edema, however workup showed no abnormalities. She is not currently on a daily diuretic. Initial VS at presentation: 96.9? F, HR 103, R 20, 192/86, and 97% on RA. ED workup showed: WBC 11.9, hemoglobin 11.3, no significant electrolyte derangements, creatinine 0.67 and GFR >60, glucose 326, BNP 88. CXR showed no acute cardiopulmonary process and chronic right hemidiaphragm elevation. Review of Systems Review of Systems: All systems reviewed & are unremarkable except as noted in HPI and below PMFSH Past Medical History Medical History Immunocompromised Vasculitis Depression JEREMY on CPAP Hypertension Hypercholesterolemia Diabetes Surgical History Surgical History H/O arthroscopy H/O myomectomy Family History Family History Mother Diabetes mellitus Myocardial infarction Uterine cancer Father Cancer of blood vessel Sibling Diabetes mellitus Social History Social History Smoking status: Never smoker Second hand tobacco smoke exposure: Yes (not often) Alcohol intake: never Drinks per week: 1 Substance use: never Substance use type: does not use Do You Feel Safe in your Home?: Yes Lack of Transportation: No Lack of Food: Never True Current Housing: I Have Housing Concerned About Future Housing: No Difficulty Paying Gas/Electric Bills: No Difficulty Paying for Meds: No Currently Unemployed: No Education: High School Diploma/GED Difficulty w/ Childcare or Family Care: No Spiritual care concerns: No Meds Home Medications and Allergies Home Medications ?Medication ?Instructions ?Recorded ?Confirmed ?Type atorvastatin 20 mg tablet 20 mg PO HS 10/15/20 02/27/25 History loratadine 10 mg tablet (Claritin) 10 mg PO DAILY 10/15/20 02/27/25 History montelukast 10 mg tablet 10 mg PO HS 10/15/20 02/27/25 History insulin lispro-aabc 100 unit/mL 1 sliding scale dose subcut AC 05/25/23 02/27/25 History subcutaneous pen (Lyumjev KwikPen U-100 Insulin) tirzepatide 5 mg/0.5 mL 10 mg subcut WEEKLY 05/25/23 02/27/25 History subcutaneous pen injector (Mounjaro) venlafaxine 150 mg 150 mg PO QAM 05/25/23 02/27/25 History capsule,extended release 24 hr tramadol 50 mg tablet 50 mg PO Q4H PRN Severe pain #15 05/29/23 02/27/25 Rx tabs albuterol sulfate 2.5 mg/3 mL 2.5 mg inhalation DAILY PRN 08/10/23 02/27/25 History (0.083 %) solution for nebulization Shortness Of Breath cetirizine 10 mg tablet (All Day 10 mg PO DAILY 08/10/23 02/27/25 History Allergy (cetirizine)) ergocalciferol (vitamin D2) 50,000 unit PO .COMPLEX 08/10/23 02/27/25 History prednisone 20 mg tablet 40 mg PO DAILY@0800 08/10/23 02/27/25 History cyclobenzaprine 10 mg tablet 10 mg PO HS 07/31/24 02/27/25 History diclofenac sodium 75 mg 75 mg PO BID 07/31/24 02/27/25 History tablet,delayed release folic acid 1 mg tablet 1 mg PO DAILY 07/31/24 02/27/25 History hydroxychloroquine 200 mg tablet 400 mg PO HS 07/31/24 02/27/25 History insulin glargine 100 unit/mL (3 45 unit subcut BID 07/31/24 02/27/25 History mL) subcutaneous pen (Lantus Solostar U-100 Insulin) lisinopril 20 mg tablet 40 mg PO HS 07/31/24 02/27/25 History methotrexate sodium 2.5 mg tablet 12.5 mg PO WEEKLY 07/31/24 02/27/25 History pantoprazole 40 mg tablet,delayed 40 mg PO DAILY 07/31/24 02/27/25 History release acetaminophen 500 mg tablet 1,000 mg PO BID 09/23/24 02/27/25 History famotidine 20 mg tablet (Acid 20 mg PO HS 09/23/24 02/27/25 History Controller) magnesium 200 mg tablet 400 mg PO DAILY 09/23/24 02/27/25 History magnesium salicylate 162.5 1 tablet PO DAILY 09/23/24 02/27/25 History mg-caffeine 50 mg tablet (Diurex) potassium 99 mg tablet 99 mg PO DAILY 09/23/24 02/27/25 History albuterol sulfate 90 mcg/actuation 2 puff inhalation Q8H PRN 10/03/24 02/27/25 History aerosol inhaler shortness of breath or wheezing metoprolol tartrate 25 mg tablet 12.5 mg (1/2 x 25 mg) PO BID 30 12/17/24 02/27/25 Rx days #30 tabs dicyclomine 20 mg tablet 20 mg PO TID PRN abdominal pain 12/19/24 02/27/25 Rx #30 tabs famotidine 20 mg tablet 20 mg PO DAILY #30 tabs 12/19/24 02/27/25 Rx ondansetron 4 mg disintegrating 4 mg PO Q8H PRN nausea and 12/19/24 02/27/25 Rx tablet vomiting #14 tabs prochlorperazine maleate 5 mg 5 mg PO Q8H PRN Headache 24 hours 02/17/25 02/27/25 Rx tablet (Compazine) #10 tabs gabapentin 300 mg capsule 300 mg PO TID 02/27/25 02/27/25 History Allergies Allergy/AdvReac Type Severity Reaction Status Date / Time amoxicillin AdvReac Unknown Nausea and Verified 02/27/25 10:29 Vomiting glipizide AdvReac Unknown NAUSEA AND Verified 02/27/25 10:29 VOMITING hydrocodone AdvReac Unknown Nausea and Verified 02/27/25 10:29 Vomiting metformin AdvReac Unknown Nausea and Verified 02/27/25 10:29 Vomiting Vital Signs Vital Signs - 24 hr 02/27/25 10:22 02/27/25 13:17 02/27/25 14:04 Temperature 96.9 F L Pulse Rate 103 H 98 100 Respiratory Rate 20 20 20 Blood Pressure 192/86 H 158/107 H 179/113 H Pulse Oximetry 97 99 98 Oxygen Delivery Room Air Exam Const: General: comfortable and no acute distress Other: , female, nontoxic appearance, obese body habitus HENMT: Face/Nose/Sinus: Normal nares present Mouth: Yes moist mucous membranes Eyes: General: appearance normal, both eyes and all related structures Sclera: sclerae normal Pupils: Equal, round and reactive pupils present EOM: EOMs intact bilaterally Resp: Effort & Inspection: normal respiratory effort Auscultation: clear to auscultation bilaterally Cardio: Rate: regular rate Rhythm: regular rhythm Other: S1-S2 present without murmur, rub, ectopy GI: Other: Abdomen soft, nondistended, nontender. Normoactive bowel sounds in all quadrants. Skin: Other: See lower extremity exam Neuro: Speech: normal speech Motor exam (neuro): 5/5 motor strength present throughout Sensory Exam: normal sensation Other: A&O x4 Extrem: General: edema Other: erythema significantly worse to the RLE, modest erythema to the LLE. scant weeping to BLE. No overt heat to the touch. 3+ pitting edema. Psych: Mental Status: mental status grossly normal Affect: normal affect Other: Good insight judgment, pleasant H&P: Results Labs Labs: Short CBC 02/27/25 Range/Units 12:12 WBC 11.9 H (4.5-10.0) K/mm3 Hgb 11.3 L (12.0-15.0) g/dL Hct 35.2 L (37.0-47.0) % Plt Count 351 (150-375) k/mm3 BMP 02/27/25 12:12 Sodium 136 L Potassium 4.6 Chloride 102 Carbon Dioxide 25 BUN 19 H Creatinine 0.67 L Glucose 326 H Calcium 9.2 Liver Function 02/27/25 Range/Units 12:12 Total Bilirubin 0.3 (0.2-1.3) mg/dL AST 32 (14-36) U/L ALT 76 H (6-35) U/L Alkaline Phosphatase 73 (38-126) U/L Albumin 3.8 (3.5-5.1) g/dL Assessment and Plan Assessment and plan (1) Cellulitis: Qualifiers: Laterality: right Site of cellulitis: extremity Site of cellulitis of extremity: lower extremity Qualified Code(s): L03.115 - Cellulitis of right lower limb Code(s): L03.90 - Cellulitis, unspecified Status: Acute Assessment and Plan: - started on Ancef on 02/27 - wound RN consulted -> feels erythema secondary to vasculitis versus true infection - worsening LE edema, BNP WNL and CXR showed no concerns for volume overload. low suspicion for CHF component. however started on Lasix 40 mg IV, will assess for clinical improvement with diuresis. monitor renal function. Patient reporting improvement in lower extremity edema with elevation and Lasix administration. - analgesics prn - monitor WBC, mild leukocytosis noted upon admission. Secondary to steroid c ourse verses cellulitis? - check CRP Clinical exam showed significantly worse erythema to the right lower extremity compared to the left lower extremity. Will check ultrasound to rule out DVT. No history of DVT. High suspicion for recurrent vasculitis as the erythema and swelling worsened with tapering the patient's prednisone. However given significant asymmetric erythema, will treat for cellulitis as well. Patient agreeable to plan. (2) Vasculitis: Code(s): I77.6 - Arteritis, unspecified Status: Chronic Assessment and Plan: - continue prednisone 40 mg daily - likely component to patient's current symptomatology (3) Diabetes mellitus, insulin dependent (IDDM), uncontrolled: Status: Acute Assessment and Plan: - hypoglycemia protocol - POC blood glucose ACHS - home medication: Hold home sliding scale and Mounjaro (NF). Continue Lantus 45 units b.i.d. - correct regimen ordered - high dose TIDWM, based off BMI - A1C 7.8% in 09/2024, update (4) Hypertension: Qualifiers: Hypertension type: unspecified Qualified Code(s): I10 - Essential (primary) hypertension Code(s): I10 - Essential (primary) hypertension Status: Chronic Assessment and Plan: - chronic, currently 179/113 - continue home medications: Metoprolol, lisinopril - monitor (5) JEREMY on CPAP: Code(s): G47.33 - Obstructive sleep apnea (adult) (pediatric) Status: Chronic Assessment and Plan: - continue home CPAP Plan Diet: Diabetic GI Prophylaxis: N/a DVT Prophylaxis: Lovenox SQ IV fluids: None Lines/Tubes: Peripheral IV Code Status: Full code Quality VTE Prophylaxis VTE prophylaxis: pharmacologic ordered Hospitalist MIPS Advance Care Plan I have confirmed that the patient's Advanced Care Plan is present, code status is documented, or surrogate decision maker is listed in patient medical record.: Yes Medication Reconciliation I have utilized all available resources to obtain, update and review the patients current medications (includes all prescriptions, OTC, herbals, cannabis, and nutritional supplements).: Yes
[2025-02-27 14:23] LABS: NT Pro B Type Natriuretic Pept 88 pg/mL (19.9-100)
[2025-02-27 14:31] VITALS: BMI 52.0; BMI 52.4
--- NOTE | 2025-02-27 14:32 | ADMGEN ---
This patient, Camila Huitron, was admitted to Medical Room 243-01. Patient/family oriented to hospital policies and general routines including ID bracelet, bed and alarms, visiting hours, pain management, procedures, bathroom and other care routines, personal items, smoking policy, room service/diet, and visiting hours. Information on how to activate the Rapid Response Team has been discussed. Patient/Family are encouraged to report perceived risks to care and to ask questions if they do not understand what they are told or what they should do.
[2025-02-27 14:39] VITALS: BP 172/99; PULSE 105; RESP 20; TEMP 36.4; O2SAT 98
[2025-02-27] MEDS: INSULIN ASPART (*BKC) 100 UNITS/ML SUB-Q (18:01)
[2025-02-27 20:10] VITALS: PULSE 105; RESP 20; O2SAT 98
[2025-02-27 20:45] VITALS: BP 186/96; PULSE 102; RESP 20; TEMP 35.8; O2SAT 99
[2025-02-27] MEDS: IBUPROFEN 600 MG TABLET PO (23:01)
[2025-02-28] VITALS (7 sets, daily range): BP systolic 131–148; BP diastolic 78–86; PULSE 78–110; RESP 18–20; TEMP 36–36.7; O2SAT 94–96
[2025-02-28] MEDS: CYCLOBENZAPRINE HCL 10 MG TABLET PO ×2 (00:52→20:22)
[2025-02-28] MEDS: HYDROXYCHLOROQUINE SULFATE 200 MG TABLET 400 MG PO ×2 (00:52→20:22)
[2025-02-28] MEDS: INSULIN GLARGINE (*BKC) 100 UNITS/ML 45 UNITS SUB-Q ×3 (00:52→20:22)
[2025-02-28] MEDS: METOPROLOL TARTRATE 12.5 MG TABLET PO ×3 (00:52→20:22)
[2025-02-28] MEDS: ATORVASTATIN 20 MG TABLET PO ×2 (00:52→20:22)
[2025-02-28 05:20] LABS: Hematocrit 35.5 % (37.0-47.0); Hemoglobin 11.2 g/dL (12.0-15.0); Immature Granulocyte Percent A 1.1 % (0-0.5); Lymphocytes Absolute Auto 3.39 K/mm3 (0.9-3.2); Mean Corpuscular HGB Conc 31.5 g/dl (32-36); Mean Corpuscular Hemoglobin 29.2 pg (26-34); Mean Corpuscular Volume 92.4 fl (80-100); Nucleated Red Blood Cells Absolute Auto 0.000 K/mm3 (0.0-0.012); Nucleated Red Blood Cells Perc 0.0 % (0.0-0.2); Platelet Count Result 359 k/mm3 (150-375); Red Blood Count 3.84 M/mm3 (4.2-5.4); White Blood Count 13.6 K/mm3 (4.5-10.0)
[2025-02-28] MEDS: ceFAZolin 1 GM in SODIUM CHLORIDE 0.9% IV 50 ML 100 ML IVPB ×3 (05:37→21:19)
[2025-02-28 05:51] LABS: Anion Gap 6 mmol/L (4-12); Blood Urea Nitrogen 13 mg/dL (7-17); CRP 0.6 mg/dL (<1.0); Calcium 8.9 mg/dL (8.4-10.2); Carbon Dioxide 32 mmol/L (22-30); Chloride 98 mmol/L (98-107); Estimated CRCL calculation 125 ml/min; Estimated Glomerular Filt Rate > 60; Glucose 115 mg/dL (65-110); Potassium 3.1 mmol/L (3.4-5.0); Sodium 136 mmol/L (137-145)
[2025-02-28] MEDS: traMADol HCL (*CRX) 50 MG TABLET PO ×2 (06:14→12:56)
[2025-02-28] MEDS: MAGNESIUM OXIDE 400 MG TABLET PO (08:23)
[2025-02-28] MEDS: PANTOPRAZOLE 40 MG TABLET PO (08:23)
[2025-02-28] MEDS: DICLOFENAC SOD 75 MG TABLET.EC PO ×2 (08:23→17:16)
[2025-02-28] MEDS: FAMOTIDINE 20 MG TABLET PO (08:23)
[2025-02-28] MEDS: VENLAFAXINE HCL XR 75 MG CAP.ER.24H 150 MG PO (08:23)
[2025-02-28] MEDS: POTASSIUM CHLORIDE 10 MEQ ER TABLET PO (08:23)
[2025-02-28] MEDS: FOLIC ACID 1 MG TABLET PO (08:23)
[2025-02-28] MEDS: LORATADINE 10 MG TABLET PO (08:23)
[2025-02-28] MEDS: GABAPENTIN 300 MG CAPSULE PO ×3 (08:23→17:16)
[2025-02-28] MEDS: POTASSIUM CHLORIDE 20 MEQ ER TABLET PO (08:23)
[2025-02-28] MEDS: FUROSEMIDE INJ 40 MG/4 ML VIAL IV PUSH ×2 (08:28→20:22)
[2025-02-28] MEDS: IBUPROFEN 600 MG TABLET PO (08:28)
[2025-02-28] MEDS: ENOXAPARIN 40 MG/0.4 ML SYRINGE SUB-Q (08:29)
--- NOTE | 2025-02-28 12:09 | P.PNIM_ITS ---
Progress Note: A&P Assessment and Plan (1) Cellulitis: Qualifiers: Laterality: right Site of cellulitis: extremity Site of cellulitis of extremity: lower extremity Qualified Code(s): L03.115 - Cellulitis of right lower limb Code(s): L03.90 - Cellulitis, unspecified Status: Acute Assessment and Plan: 02/28/25: * Agree that pt's legs appear Cellulitis in nature. * Continue analgesia as ordered. * WBC's have trended upward to 13.6 today from 11.9 yesterday. Etiology infection vs. Steroids. Concern for infection in setting of CRP being petar at 0.6. * Continue steroids given pt's concomitant Vasculitis. * Continue Ancef in current setting. (2) Vasculitis: Code(s): I77.6 - Arteritis, unspecified Status: Chronic Assessment and Plan: 02/28/25: * Likely contributing underlying dx, however, pt's CRP is normal and she has increasing WBC count. Unsure if due to actual infection or dosing of Predn isone. * Continue treatment for concomitant infection and Vasculitis. * Wound nurse consulted, she recommends continued elevation, diuretics and compression if able to tolerate. (3) Diabetes mellitus, insulin dependent (IDDM), uncontrolled: Status: Acute Assessment and Plan: 02/28/25: * Continue TID dosing of insulin with meals and Lantus 45 units BID. * Check A1C with AM labs. * Continue hypoglycemic protocol * Continue Glucose checks AC and HS (4) Hypertension: Qualifiers: Hypertension type: unspecified Qualified Code(s): I10 - Essential (primary) hypertension Code(s): I10 - Essential (primary) hypertension Status: Chronic Assessment and Plan: 02/28/25: * Continue BP meds. Current BP showing good control at 131/78. (5) JEREMY on CPAP: Code(s): G47.33 - Obstructive sleep apnea (adult) (pediatric) Status: Chronic Assessment and Plan: 02/28/25: * Continue home CPAP Time Spent With Patient Time with patient: 15 - 25 minutes Subjective Date/time seen: 02/28/25 12:09 Interval history: This pt was evaluated, sitting in bed at this time and appears comfortable. She states the redness in her legs is looking better, and they are starting to feel better, although they remain swollen and red. Venous doppler was performed today and was negative for DVT in RLE. Wound nurse has consulted and she advises elevation and compression with continued diuresis. Pt without any new acute complaints or symptoms. Review of Systems Review of Systems: All systems reviewed & are unremarkable except as noted in HPI and below Exam Const: General: comfortable and no acute distress Other: Morbidly obese female pt lying supine in bed with legs elevated. HENMT: Face/Nose/Sinus: Normal nares present Mouth: Yes moist mucous membranes Eyes: General: appearance normal, both eyes and all related structures EOM: EOMs intact bilaterally Neck: Neck: supple and no JVD Lymphatic: lymphadenopathy not noted Resp: Effort & Inspection: normal respiratory effort Auscultation: clear to auscultation bilaterally Cardio: Rate: regular rate Rhythm: regular rhythm Heart sounds: no gallops, no murmurs and no rubs Skin: Lesions: lesion noted (Multiple popped blisters on BLE. Mild weeping.) Other: BLE are erythematous and red from the level of the mid han to foot. They are edematous R>L. Neuro: Speech: normal speech Motor exam (neuro): 5/5 motor strength present throughout and Normal motor muscle tone present throughout Sensory Exam: norm al sensation Extrem: General: normal exam except as noted, edema and pedal edema Psych: Mental Status: mental status grossly normal Affect: normal affect Objective Data Vital Signs Vital Signs: Vital Signs - 24 hr 02/27/25 13:17 02/27/25 14:04 02/27/25 14:39 Temperature 97.5 F L Pulse Rate 98 100 105 H Respiratory Rate 20 20 20 Blood Pressure 158/107 H 179/113 H 172/99 H Pulse Oximetry 99 98 98 Oxygen Delivery 02/27/25 15:20 02/27/25 20:10 02/27/25 20:45 Temperature 96.5 F L Pulse Rate 105 H 102 H Respiratory Rate 20 20 Blood Pressure 186/96 H Pulse Oximetry 98 99 Oxygen Delivery Room Air Room Air 02/27/25 22:46 02/28/25 00:52 02/28/25 04:52 Temperature 96.8 F L Pulse Rate 78 99 Respiratory Rate 18 Blood Pressure 131/78 Pulse Oximetry 96 Oxygen Delivery Autopap 02/28/25 08:23 02/28/25 08:25 Temperature Pulse Rate 96 Respiratory Rate Blood Pressure Pulse Oximetry Oxygen Delivery Room Air Intake/Output Intake/Output: Intake & Output 02/25/25 02/26/25 02/27/25 02/28/25 23:59 23:59 23:59 23:59 Intake Total 740 420 Balance 740 420 Meds/Results Medications: Active Medications Generic Name Dose Route Start Last Admin Trade Name Freq PRN Reason Stop Dose Admin Acetaminophen 650 mg 02/27/25 14:36 Acetaminophen 325 Mg Tablet PO Q6H PRN Mild Pain (1-3) or Fever Albuterol 2.5 mg 02/27/25 23:35 Albuterol Sulfate Neb 2.5 Mg/3 Ml Inh INHALATION DAILY PRN Shortness Of Breath Albuterol 2 puff 02/27/25 23:35 Albuterol Sulfate (*Sp) Aerosol 1 Puff INHALATION Q8HRT PRN shortness of breath or wheezing Atorvastatin Calcium 20 mg 02/27/25 23:50 02/28/25 00:52 Atorvastatin 20 Mg Tablet PO 20 mg HS ZEE Administration Cyclobenzaprine HCl 10 mg 02/27/25 23:50 02/28/25 00:52 Cyclobenzaprine Hcl 10 Mg Tablet PO 10 mg HS ZEE Administration Dextrose 12.5 gm 02/27/25 14:34 Dextrose 50% 25 Gm/50 Ml Syringe IV PUSH PRN PRN Hypoglycemia Protocol Diclofenac Sodium 75 mg 02/28/25 08:00 02/28/25 08:23 Diclofenac Sod 75 Mg Tablet.Ec PO 75 mg BIDWM ZEE Administration Enoxaparin Sodium 40 mg 02/28/25 09:00 02/28/25 08:29 Enoxaparin 40 Mg/0.4 Ml Syringe SUB-Q 40 mg DAILY ZEE Administration Ergocalciferol 1,250 mcg 03/01/25 09:00 Ergocalciferol (Vitamin D2) 1,250 Mcg (50,000 Units) Capsule PO SuWe ZEE Famotidine 20 mg 02/28/25 09:00 02/28/25 08:23 Famotidine 20 Mg Tablet PO 20 mg DAILY ZEE Administration Folic Acid 1 mg 02/28/25 09:00 02/28/25 08:23 Folic Acid 1 Mg Tablet PO 1 mg DAILY ZEE Administration Furosemide 40 mg 02/27/25 21:00 02/28/25 08:28 Furosemide Inj 40 Mg/4 Ml Vial IV PUSH 40 mg Q12HR ZEE Administration Gabapentin 300 mg 02/28/25 09:00 02/28/25 08:23 Gabapentin 300 Mg Capsule PO 300 mg TID ZEE Administration Glucagon 1 mg 02/27/25 14:34 Glucagon For Inj 1 Mg Vial IM PRN PRN Hypoglycemia Protocol Glucose 15 gm 02/27/25 14:34 Glucose Oral Gel 15 Gm Of Glucse In 37.5 Gm Tube PO PRN PRN Hypoglycemia Protocol Hydroxychloroquine Sulfate 400 mg 02/27/25 23:50 02/28/25 00:52 Hydroxychloroquine Sulfate 200 Mg Tablet PO 400 mg HS ZEE Administration Cefazolin Sodium 1 gm/ Sodium 50 mls @ 100 mls/hr 02/27/25 22:00 02/28/25 07:00 Chloride IVPB Infused Q8HR ZEE Infusion Dextrose 1,000 mls @ 100 mls/hr 02/27/25 14:34 Dextrose 5% 1,000 Ml IVPB PRN PRN Hypoglycemia Protocol Ibuprofen 600 mg 02/27/25 14:36 02/28/25 08:28 Ibuprofen 600 Mg Tablet PO 600 mg Q6H PRN Administration Pain Rated 4-6 Insulin Aspart 4 - 8 units 02/27/25 17:00 02/28/25 08:24 Insulin Aspart (*Bkc) 100 Units/Ml SUB-Q Not Given TIDWM ZEE Protocol Insulin Glargine 45 units 02/27/25 23:45 02/28/25 08:29 Insulin Glargine (*Bkc) 100 Units/Ml SUB-Q 45 units Q12HR ZEE Administration Lisinopril 40 mg 02/27/25 23:50 02/28/25 00:52 Lisinopril 20 Mg Tablet PO 40 mg HS ZEE Administration Loratadine 10 mg 02/28/25 09:00 02/28/25 08:23 Loratadine 10 Mg Tablet PO 10 mg DAILY ZEE Administration Magnesium Oxide 400 mg 02/28/25 09:00 02/28/25 08:23 Magnesium Oxide 400 Mg Tablet PO 400 mg DAILY ZEE Administration Metoprolol Tartrate 12.5 mg 02/27/25 23:45 02/28/25 08:23 Metoprolol Tartrate 12.5 Mg Tablet PO 12.5 mg Q12HR ZEE Administration Pantoprazole Sodium 40 mg 02/28/25 09:00 02/28/25 08:23 Pantoprazole 40 Mg Tablet PO 40 mg DAILY ZEE Administration Potassium Chloride 10 meq 02/28/25 09:00 02/28/25 08:23 Potassium Chloride 10 Meq Er Tablet PO 10 meq DAILY ZEE Administration Prednisone 40 mg 02/28/25 08:00 02/28/25 08:24 Prednisone 20 Mg Tablet PO 40 mg DAILY@0800 ZEE Administration Tramadol HCl 50 mg 02/27/25 23:35 02/28/25 06:14 Tramadol Hcl (*Crx) 50 Mg Tablet PO 50 mg Q4H PRN Administration Severe pain 7-10 Venlafaxine HCl 150 mg 02/28/25 09:00 02/28/25 08:23 Venlafaxine Hcl Xr 75 Mg Cap.Er.24h PO 150 mg QAM ZEE Administration Radiology Results: ITS Impressions Chest X-Ray 02/27/25 13:23 IMPRESSION: No acute cardiopulmonary process. Chronic right hemidiaphragm elevation. Venous Doppler Study 02/28/25 09:33 IMPRESSION: 1. No deep venous thrombosis in the right lower limb. Labs Labs: Laboratory Results - last 24 hr 02/27/25 02/27/25 02/27/25 12:12 13:33 16:52 WBC 11.9 H RBC 3.81 L Hgb 11.3 L Hct 35.2 L MCV 92.4 MCH 29.7 MCHC 32.1 RDW 14.6 H Plt Count 351 MPV 10.4 Immature Gran % (Auto) 1.7 H Neut % (Auto) 86.7 H Lymph % (Auto) 6.6 L [place] % (Auto) 4.5 Eos % (Auto) 0.0 Baso % (Auto) 0.5 Lymph # (Auto) 0.78 L [place] # (Auto) 0.5 Eos # (Auto) 0.0 Baso # (Auto) 0.1 Abs Immat Gran (auto) 0.20 H Absolute Neuts (auto) 10.3 H Absolute Nucleated RBC 0.000 Nucleated RBC % 0.0 Sodium 136 L Potassium 4.6 Chloride 102 Carbon Dioxide 25 Anion Gap 9 BUN 19 H Creatinine 0.67 L Estim Creat Clear Calc 130 Estimated GFR > 60 Glucose 326 H POC Capillary Glucose 248 H Calcium 9.2 Total Bilirubin 0.3 AST 32 ALT 76 H Alkaline Phosphatase 73 C-Reactive Protein NT-Pro-B Natriuret Pep 88 Total Protein 6.5 Albumin 3.8 02/27/25 02/28/25 02/28/25 20:47 04:44 08:15 WBC 13.6 H RBC 3.84 L Hgb 11.2 L Hct 35.5 L MCV 92.4 MCH 29.2 MCHC 31.5 L RDW 14.6 H Plt Count 359 MPV 10.3 Immature Gran % (Auto) 1.1 H Neut % (Auto) 62.6 Lymph % (Auto) 24.9 [place] % (Auto) 10.2 H Eos % (Auto) 0.6 Baso % (Auto) 0.6 Lymph # (Auto) 3.39 H [place] # (Auto) 1.4 H Eos # (Auto) 0.1 Baso # (Auto) 0.1 Abs Immat Gran (auto) 0.15 H Absolute Neuts (auto) 8.5 H Absolute Nucleated RBC 0.000 Nucleated RBC % 0.0 Sodium 136 L Potassium 3.1 L Chloride 98 Carbon Dioxide 32 H Anion Gap 6 BUN 13 D Creatinine 0.71 Estim Creat Clear Calc 125 Estimated GFR > 60 Glucose 115 H POC Capillary Glucose 179 H 127 H Calcium 8.9 Total Bilirubin AST ALT Alkaline Phosphatase C-Reactive Protein 0.6 NT-Pro-B Natriuret Pep Total Protein Albumin 02/28/25 11:53 WBC RBC Hgb Hct MCV MCH MCHC RDW Plt Count MPV Immature Gran % (Auto) Neut % (Auto) Lymph % (Auto) [place] % (Auto) Eos % (Auto) Baso % (Auto) Lymph # (Auto) [place] # (Auto) Eos # (Auto) Baso # (Auto) Abs Immat Gran (auto) Absolute Neuts (auto) Absolute Nucleated RBC Nucleated RBC % Sodium Potassium Chloride Carbon Dioxide Anion Gap BUN Creatinine Estim Creat Clear Calc Estimated GFR Glucose POC Capillary Glucose 216 H Calcium Total Bilirubin AST ALT Alkaline Phosphatase C-Reactive Protein NT-Pro-B Natriuret Pep Total Protein Albumin Quality VTE Prophylaxis VTE prophylaxis: pharmacologic ordered
[2025-02-28] MEDS: INSULIN ASPART (*BKC) 100 UNITS/ML SUB-Q ×2 (12:57→17:16)
[2025-03-01 05:10] LABS: Hematocrit 38.8 % (37.0-47.0); Hemoglobin 12.3 g/dL (12.0-15.0); Immature Granulocyte Percent A 1.4 % (0-0.5); Lymphocytes Absolute Auto 2.63 K/mm3 (0.9-3.2); Mean Corpuscular HGB Conc 31.7 g/dl (32-36); Mean Corpuscular Hemoglobin 29.4 pg (26-34); Mean Corpuscular Volume 92.8 fl (80-100); Nucleated Red Blood Cells Absolute Auto 0.000 K/mm3 (0.0-0.012); Nucleated Red Blood Cells Perc 0.0 % (0.0-0.2); Platelet Count Result 375 k/mm3 (150-375); Red Blood Count 4.18 M/mm3 (4.2-5.4); White Blood Count 14.4 K/mm3 (4.5-10.0)
[2025-03-01 05:22] LABS: INR 0.9; Partial Thromboplastin Time 24.8 Seconds (22.3-36.8); Prothrombin Time 12.8 Seconds (11.1-14.7)
[2025-03-01 05:25] LABS: Hemoglobin A1C 8.6 % (<5.7)
[2025-03-01 05:30] LABS: Alanine Aminotransferase 65 U/L (6-35); Albumin Level 3.8 g/dL (3.5-5.1); Alkaline Phosphatase 55 U/L (38-126); Anion Gap 6 mmol/L (4-12); Aspartate Amino Transferase 27 U/L (14-36); Bilirubin,Total 0.5 mg/dL (0.2-1.3); Blood Urea Nitrogen 13 mg/dL (7-17); Calcium 9.0 mg/dL (8.4-10.2); Carbon Dioxide 35 mmol/L (22-30); Chloride 95 mmol/L (98-107); Estimated CRCL calculation 110 ml/min; Estimated Glomerular Filt Rate > 60; Glucose 125 mg/dL (65-110); Magnesium 2.1 mg/dL (1.6-2.3); Potassium 3.4 mmol/L (3.4-5.0); Sodium 136 mmol/L (137-145); Total Protein 6.5 g/dL (6.3-8.2)
[2025-03-01 05:35] VITALS: BP 146/90; PULSE 97; RESP 16; TEMP 36.2; O2SAT 99
[2025-03-01] MEDS: ceFAZolin 1 GM in SODIUM CHLORIDE 0.9% IV 50 ML 100 ML IVPB ×3 (06:13→22:21)
[2025-03-01 08:28] VITALS: PULSE 96
[2025-03-01] MEDS: GABAPENTIN 300 MG CAPSULE PO ×3 (08:28→17:28)
[2025-03-01] MEDS: DICLOFENAC SOD 75 MG TABLET.EC PO ×2 (08:28→17:28)
[2025-03-01] MEDS: METOPROLOL TARTRATE 12.5 MG TABLET PO ×2 (08:28→20:16)
[2025-03-01] MEDS: FOLIC ACID 1 MG TABLET PO (08:28)
[2025-03-01] MEDS: ERGOCALCIFEROL (VITAMIN D2) 1,250 MCG (50,000 UNITS) CAPSULE 1250 MCG PO (08:28)
[2025-03-01] MEDS: PANTOPRAZOLE 40 MG TABLET PO (08:28)
[2025-03-01] MEDS: VENLAFAXINE HCL XR 75 MG CAP.ER.24H 150 MG PO (08:28)
[2025-03-01] MEDS: MAGNESIUM OXIDE 400 MG TABLET PO (08:28)
[2025-03-01] MEDS: LORATADINE 10 MG TABLET PO (08:28)
[2025-03-01] MEDS: FAMOTIDINE 20 MG TABLET PO (08:28)
[2025-03-01] MEDS: POTASSIUM CHLORIDE 10 MEQ ER TABLET PO (08:28)
[2025-03-01] MEDS: ENOXAPARIN 40 MG/0.4 ML SYRINGE SUB-Q (08:29)
[2025-03-01] MEDS: FUROSEMIDE INJ 40 MG/4 ML VIAL IV PUSH ×2 (08:29→20:16)
[2025-03-01] MEDS: INSULIN GLARGINE (*BKC) 100 UNITS/ML 45 UNITS SUB-Q ×2 (08:29→20:17)
[2025-03-01 13:48] VITALS: BP 126/68; PULSE 94; RESP 18; TEMP 36.6; O2SAT 94
--- NOTE | 2025-03-01 15:33 | P.PNIM_ITS ---
Progress Note: A&P Assessment and Plan (1) Cellulitis of right lower extremity: Code(s): L03.115 - Cellulitis of right lower limb Status: Acute Plan Cellulitis: Qualifiers: Laterality: right Site of cellulitis: extremity Site of cellulitis of extremity: lower extremity Qualified Code(s): L03.115 - Cellulitis of right lower limb Code(s): L03.90 - Cellulitis, unspecified Status: Acute Assessment and Plan: Leukocytosis persists and and trending up Physical examination showed cellulitis of right lower extremity with blister continue pus Continue Ancef and clindamycin Diabetes mellitus, insulin dependent (IDDM), uncontrolled: Status: Acute Assessment and Plan: Continue TID dosing of insulin with meals and Lantus 45 units BID. * Check A1C with AM labs. * Continue hypoglycemic protocol * Continue Glucose checks AC and HS Hypertension: Qualifiers: Hypertension type: unspecified Qualified Code(s): I10 - Essential (primary) hypertension Code(s): I10 - Essential (primary) hypertension Status: Chronic Assessment and Plan: 02/28/25: * Continue BP meds. Current BP showing good control at 131/78. JEREMY on CPAP: Code(s): G47.33 - Obstructive sleep apnea (adult) (pediatric) Status: Chronic Assessment and Plan: 02/28/25: * Continue home CPAP Subjective Date/time seen: 03/01/25 15:33 Interval history: I saw exam patient today. Patient is afebrile Leukocytosis persists and and trending up Physical examination showed cellulitis of right lower extremity with blister continue pus Exam Narrative: GENERAL: Pleasant, in no acute distress. Well-nourished. - EYES: EOMI. Anicteric. - HENT: Moist mucous membranes. - LUNGS: Clear to auscultation bilateral ly, no wheezing, rhonchi, or rales. - CARDIOVASCULAR: Regular rate and rhyth m. No murmur. No JVD. - ABDOMEN: Soft, non-tender and non-dist ended. No palpable masses. - EXTREMITIES: No edema. Peripheral puls es 2+. Non-tender. - NEUROLOGIC: No focal neurological defi cits. CN II-XII grossly intact. - PSYCHIATRIC: Awake, Alert and oriented x 3. Appropriate mood and affect. - SKIN: No rashes or lesions. Warm. - LYMPH: No cervical lymphadenopathy. Objective Data Vital Signs Vital Signs: Vital Signs - 24 hr 02/28/25 20:20 02/28/25 20:22 02/28/25 21:04 Temperature 98.1 F Pulse Rate 110 H 78 110 H Respiratory Rate 18 18 Blood Pressure 148/85 H Pulse Oximetry 94 94 Oxygen Delivery Room Air 03/01/25 05:35 03/01/25 08:28 03/01/25 08:30 Temperature 97.1 F L Pulse Rate 97 96 Respiratory Rate 16 Blood Pressure 146/90 H Pulse Oximetry 99 Oxygen Delivery Room Air 03/01/25 13:48 Temperature 97.9 F Pulse Rate 94 Respiratory Rate 18 Blood Pressure 126/68 Pulse Oximetry 94 Oxygen Delivery Intake/Output Intake/Output: Intake & Output 02/26/25 02/27/25 02/28/25 03/01/25 23:59 23:59 23:59 23:59 Intake Total 740 1000 1010 Balance 740 1000 1010 Meds/Results Medications: Active Medications Generic Name Dose Route Start Last Admin Trade Name Freq PRN Reason Stop Dose Admin Acetaminophen 650 mg 02/27/25 14:36 Acetaminophen 325 Mg Tablet PO Q6H PRN Mild Pain (1-3) or Fever Albuterol 2.5 mg 02/27/25 23:35 Albuterol Sulfate Neb 2.5 Mg/3 Ml Inh INHALATION DAILY PRN Shortness Of Breath Albuterol 2 puff 02/27/25 23:35 Albuterol Sulfate (*Sp) Aerosol 1 Puff INHALATION Q8HRT PRN shortness of breath or wheezing Atorvastatin Calcium 20 mg 02/27/25 23:50 02/28/25 20:22 Atorvastatin 20 Mg Tablet PO 20 mg HS ZEE Administration Cyclobenzaprine HCl 10 mg 02/27/25 23:50 02/28/25 20:22 Cyclobenzaprine Hcl 10 Mg Tablet PO 10 mg HS ZEE Administration Dextrose 12.5 gm 02/27/25 14:34 Dextrose 50% 25 Gm/50 Ml Syringe IV PUSH PRN PRN Hypoglycemia Protocol Diclofenac Sodium 75 mg 02/28/25 08:00 03/01/25 08:28 Diclofenac Sod 75 Mg Tablet.Ec PO 75 mg BIDWM ZEE Administration Enoxaparin Sodium 40 mg 02/28/25 09:00 03/01/25 08:29 Enoxaparin 40 Mg/0.4 Ml Syringe SUB-Q 40 mg DAILY ZEE Administration Ergocalciferol 1,250 mcg 03/01/25 09:00 03/01/25 08:28 Ergocalciferol (Vitamin D2) 1,250 Mcg (50,000 Units) Capsule PO 1,250 mcg SuWe ZEE Administration Famotidine 20 mg 02/28/25 09:00 03/01/25 08:28 Famotidine 20 Mg Tablet PO 20 mg DAILY ZEE Administration Folic Acid 1 mg 02/28/25 09:00 03/01/25 08:28 Folic Acid 1 Mg Tablet PO 1 mg DAILY ZEE Administration Furosemide 40 mg 02/27/25 21:00 03/01/25 08:29 Furosemide Inj 40 Mg/4 Ml Vial IV PUSH 40 mg Q12HR ZEE Administration Gabapentin 300 mg 02/28/25 09:00 03/01/25 13:30 Gabapentin 300 Mg Capsule PO 300 mg TID ZEE Administration Glucagon 1 mg 02/27/25 14:34 Glucagon For Inj 1 Mg Vial IM PRN PRN Hypoglycemia Protocol Glucose 15 gm 02/27/25 14:34 Glucose Oral Gel 15 Gm Of Glucse In 37.5 Gm Tube PO PRN PRN Hypoglycemia Protocol Hydroxychloroquine Sulfate 400 mg 02/27/25 23:50 02/28/25 20:22 Hydroxychloroquine Sulfate 200 Mg Tablet PO 400 mg HS ZEE Administration Cefazolin Sodium 1 gm/ Sodium 50 mls @ 100 mls/hr 02/27/25 22:00 03/01/25 14:00 Chloride IVPB Infused Q8HR ZEE Infusion Dextrose 1,000 mls @ 100 mls/hr 02/27/25 14:34 Dextrose 5% 1,000 Ml IVPB PRN PRN Hypoglycemia Protocol Ibuprofen 600 mg 02/27/25 14:36 02/28/25 08:28 Ibuprofen 600 Mg Tablet PO 600 mg Q6H PRN Administration Pain Rated 4-6 Insulin Aspart 4 - 8 units 02/27/25 17:00 03/01/25 11:54 Insulin Aspart (*Bkc) 100 Units/Ml SUB-Q Not Given TIDWM [facility] Protocol Insulin Glargine 45 units 02/27/25 23:45 03/01/25 08:29 Insulin Glargine (*Bkc) 100 Units/Ml SUB-Q 45 units Q12HR ZEE Administration Lisinopril 40 mg 02/27/25 23:50 02/28/25 20:21 Lisinopril 20 Mg Tablet PO 40 mg HS ZEE Administration Loratadine 10 mg 02/28/25 09:00 03/01/25 08:28 Loratadine 10 Mg Tablet PO 10 mg DAILY ZEE Administration Magnesium Oxide 400 mg 02/28/25 09:00 03/01/25 08:28 Magnesium Oxide 400 Mg Tablet PO 400 mg DAILY ZEE Administration Metoprolol Tartrate 12.5 mg 02/27/25 23:45 03/01/25 08:28 Metoprolol Tartrate 12.5 Mg Tablet PO 12.5 mg Q12HR ZEE Administration Pantoprazole Sodium 40 mg 02/28/25 09:00 03/01/25 08:28 Pantoprazole 40 Mg Tablet PO 40 mg DAILY ZEE Administration Potassium Chloride 10 meq 02/28/25 09:00 03/01/25 08:28 Potassium Chloride 10 Meq Er Tablet PO 10 meq DAILY ZEE Administration Prednisone 40 mg 02/28/25 08:00 03/01/25 08:28 Prednisone 20 Mg Tablet PO 40 mg DAILY@0800 ZEE Administration Tramadol HCl 50 mg 02/27/25 23:35 02/28/25 12:56 Tramadol Hcl (*Crx) 50 Mg Tablet PO 50 mg Q4H PRN Administration Severe pain 7-10 Venlafaxine HCl 150 mg 02/28/25 09:00 03/01/25 08:28 Venlafaxine Hcl Xr 75 Mg Cap.Er.24h PO 150 mg QAM ZEE Administration Radiology Results: ITS Impressions Chest X-Ray 02/27/25 13:23 IMPRESSION: No acute cardiopulmonary process. Chronic right hemidiaphragm elevation. Venous Doppler Study 02/28/25 09:33 IMPRESSION: 1. No deep venous thrombosis in the right lower limb. Labs Labs: Laboratory Results - last 24 hr 02/28/25 02/28/25 03/01/25 17:03 21:09 05:00 WBC 14.4 H RBC 4.18 L Hgb 12.3 Hct 38.8 MCV 92.8 MCH 29.4 MCHC 31.7 L RDW 14.6 H Plt Count 375 MPV 10.2 Immature Gran % (Auto) 1.4 H Neut % (Auto) 71.2 Lymph % (Auto) 18.2 L [place] % (Auto) 8.3 Eos % (Auto) 0.3 Baso % (Auto) 0.6 Lymph # (Auto) 2.63 [place] # (Auto) 1.2 H Eos # (Auto) 0.1 Baso # (Auto) 0.1 Abs Immat Gran (auto) 0.20 H Absolute Neuts (auto) 10.3 H Absolute Nucleated RBC 0.000 Nucleated RBC % 0.0 PT 12.8 INR 0.9 APTT 24.8 Sodium 136 L Potassium 3.4 Chloride 95 L Carbon Dioxide 35 H Anion Gap 6 BUN 13 Creatinine 0.81 Estim Creat Clear Calc 110 Estimated GFR > 60 Glucose 125 H POC Capillary Glucose 250 H 245 H Hemoglobin A1c 8.6 H Calcium 9.0 Magnesium 2.1 Total Bilirubin 0.5 AST 27 ALT 65 H Alkaline Phosphatase 55 Total Protein 6.5 Albumin 3.8 03/01/25 03/01/25 07:30 11:53 WBC RBC Hgb Hct MCV MCH MCHC RDW Plt Count MPV Immature Gran % (Auto) Neut % (Auto) Lymph % (Auto) [place] % (Auto) Eos % (Auto) Baso % (Auto) Lymph # (Auto) [place] # (Auto) Eos # (Auto) Baso # (Auto) Abs Immat Gran (auto) Absolute Neuts (auto) Absolute Nucleated RBC Nucleated RBC % PT INR APTT Sodium Potassium Chloride Carbon Dioxide Anion Gap BUN Creatinine Estim Creat Clear Calc Estimated GFR Glucose POC Capillary Glucose 140 H 166 H Hemoglobin A1c Calcium Magnesium Total Bilirubin AST ALT Alkaline Phosphatase Total Protein Albumin
[2025-03-01] MEDS: INSULIN ASPART (*BKC) 100 UNITS/ML SUB-Q (17:28)
[2025-03-01] MEDS: CLINDAMYCIN 600 MG/D5W 50 ML 600 MG/50 ML PIGGYBACK 100 MG IVPB (18:18)
[2025-03-01 20:16] VITALS: PULSE 100
[2025-03-01] MEDS: ATORVASTATIN 20 MG TABLET PO (20:16)
[2025-03-01] MEDS: HYDROXYCHLOROQUINE SULFATE 200 MG TABLET 400 MG PO (20:16)
[2025-03-01] MEDS: CYCLOBENZAPRINE HCL 10 MG TABLET PO (20:16)
[2025-03-01 20:56] VITALS: BP 136/76; PULSE 111; RESP 18; TEMP 36.7; O2SAT 95
[2025-03-01 21:10] VITALS: PULSE 109; O2SAT 96
[2025-03-02] VITALS (7 sets, daily range): BP systolic 122–126; BP diastolic 69–90; PULSE 84–103; RESP 16–20; TEMP 36.3–36.6; O2SAT 95–99
[2025-03-02 05:02] LABS: Potassium 3.6 mmol/L (3.4-5.0)
[2025-03-02] MEDS: ceFAZolin 1 GM in SODIUM CHLORIDE 0.9% IV 50 ML 100 ML IVPB ×2 (07:02→13:08)
[2025-03-02] MEDS: METOPROLOL TARTRATE 12.5 MG TABLET PO ×2 (08:16→20:25)
[2025-03-02] MEDS: PANTOPRAZOLE 40 MG TABLET PO (08:17)
[2025-03-02] MEDS: DICLOFENAC SOD 75 MG TABLET.EC PO ×2 (08:17→17:25)
[2025-03-02] MEDS: LORATADINE 10 MG TABLET PO (08:17)
[2025-03-02] MEDS: POTASSIUM CHLORIDE 10 MEQ ER TABLET PO (08:17)
[2025-03-02] MEDS: GABAPENTIN 300 MG CAPSULE PO ×3 (08:17→17:25)
[2025-03-02] MEDS: FOLIC ACID 1 MG TABLET PO (08:17)
[2025-03-02] MEDS: MAGNESIUM OXIDE 400 MG TABLET PO (08:17)
[2025-03-02] MEDS: VENLAFAXINE HCL XR 75 MG CAP.ER.24H 150 MG PO (08:17)
[2025-03-02] MEDS: INSULIN GLARGINE (*BKC) 100 UNITS/ML 45 UNITS SUB-Q ×2 (08:17→20:48)
[2025-03-02] MEDS: FAMOTIDINE 20 MG TABLET PO (08:17)
[2025-03-02] MEDS: ENOXAPARIN 40 MG/0.4 ML SYRINGE SUB-Q (08:18)
[2025-03-02] MEDS: CLINDAMYCIN 600 MG/D5W 50 ML 600 MG/50 ML PIGGYBACK 100 MG IVPB ×2 (08:20→17:28)
[2025-03-02] MEDS: FUROSEMIDE INJ 40 MG/4 ML VIAL IV PUSH ×2 (08:30→20:25)
--- NOTE | 2025-03-02 10:10 | P.PNIM_ITS ---
Progress Note: A&P Assessment and Plan (1) Cellulitis of right lower extremity: Code(s): L03.115 - Cellulitis of right lower limb Status: Acute Plan Cellulitis: Qualifiers: Laterality: right Site of cellulitis: extremity Site of cellulitis of extremity: lower extremity Qualified Code(s): L03.115 - Cellulitis of right lower limb Code(s): L03.90 - Cellulitis, unspecified Status: Acute Assessment and Plan: Leukocytosis persists and and trending up Physical examination showed cellulitis of right lower extremity with blister continue pus Continue clindamycin changed Ancef to cefepime to cover Pseudomonas infection Diabetes mellitus, insulin dependent (IDDM), uncontrolled: Status: Acute Assessment and Plan: Continue TID dosing of insulin with meals and Lantus 45 units BID. * Check A1C with AM labs. * Continue hypoglycemic protocol * Continue Glucose checks AC and HS Hypertension: Qualifiers: Hypertension type: unspecified Qualified Code(s): I10 - Essential (primary) hypertension Code(s): I10 - Essential (primary) hypertension Status: Chronic Assessment and Plan: 02/28/25: * Continue BP meds. Current BP showing good control at 131/78. JEREMY on CPAP: Code(s): G47.33 - Obstructive sleep apnea (adult) (pediatric) Status: Chronic Assessment and Plan: 02/28/25: * Continue home CPAP Subjective Date/time seen: 03/02/25 10:10 Interval history: I saw exam patient today. Patient is afebrile Leukocytosis persists and and trending up Physical examination showed cellulitis of right lower extremity, cellulitis improving Exam Narrative: GENERAL: Pleasant, in no acute distress. Well-nourished. - EYES: EOMI. Anicteric. - HENT: Moist mucous membranes. - LUNGS: Clear to auscultation bilateral ly, no wheezing, rhonchi, or rales. - CARDIOVASCULAR: Regular rate and rhyth m. No murmur. No JVD. - ABDOMEN: Soft, non-tender and non-dist ended. No palpable masses. - EXTREMITIES: No edema. Peripheral puls es 2+. Non-tender. - NEUROLOGIC: No focal neurological defi cits. CN II-XII grossly intact. - PSYCHIATRIC: Awake, Alert and oriented x 3. Appropriate mood and affect. - SKIN: No rashes or lesions. Warm. - LYMPH: No cervical lymphadenopathy. Objective Data Vital Signs Vital Signs: Vital Signs - 24 hr 03/01/25 13:48 03/01/25 20:10 03/01/25 20:16 Temperature 97.9 F Pulse Rate 94 100 Respiratory Rate 18 Blood Pressure 126/68 Pulse Oximetry 94 Oxygen Delivery Room Air 03/01/25 20:56 03/01/25 21:10 03/01/25 21:10 Temperature 98.1 F Pulse Rate 111 H 109 H Respiratory Rate 18 Blood Pressure 136/76 Pulse Oximetry 95 96 96 Oxygen Delivery Room Air 03/02/25 05:53 03/02/25 08:15 03/02/25 08:16 Temperature 97.8 F Pulse Rate 84 84 Respiratory Rate 18 Blood Pressure 122/90 Pulse Oximetry 99 Oxygen Delivery Room Air Intake/Output Intake/Output: Intake & Output 02/27/25 02/28/25 03/01/25 03/02/25 23:59 23:59 23:59 23:59 Intake Total 740 1000 1880 1190 Balance 740 1000 1880 1190 Meds/Results Medications: Active Medications Generic Name Dose Route Start Last Admin Trade Name Freq PRN Reason Stop Dose Admin Acetaminophen 650 mg 02/27/25 14:36 Acetaminophen 325 Mg Tablet PO Q6H PRN Mild Pain (1-3) or Fever Albuterol 2.5 mg 02/27/25 23:35 Albuterol Sulfate Neb 2.5 Mg/3 Ml Inh INHALATION DAILY PRN Shortness Of Breath Albuterol 2 puff 02/27/25 23:35 Albuterol Sulfate (*Sp) Aerosol 1 Puff INHALATION Q8HRT PRN shortness of breath or wheezing Atorvastatin Calcium 20 mg 02/27/25 23:50 03/01/25 20:16 Atorvastatin 20 Mg Tablet PO 20 mg HS ZEE Administration Cyclobenzaprine HCl 10 mg 02/27/25 23:50 03/01/25 20:16 Cyclobenzaprine Hcl 10 Mg Tablet PO 10 mg HS ZEE Administration Dextrose 12.5 gm 02/27/25 14:34 Dextrose 50% 25 Gm/50 Ml Syringe IV PUSH PRN PRN Hypoglycemia Protocol Diclofenac Sodium 75 mg 02/28/25 08:00 03/02/25 08:17 Diclofenac Sod 75 Mg Tablet.Ec PO 75 mg BIDWM ZEE Administration Enoxaparin Sodium 40 mg 02/28/25 09:00 03/02/25 08:18 Enoxaparin 40 Mg/0.4 Ml Syringe SUB-Q 40 mg DAILY ZEE Administration Ergocalciferol 1,250 mcg 03/01/25 09:00 03/01/25 08:28 Ergocalciferol (Vitamin D2) 1,250 Mcg (50,000 Units) Capsule PO 1,250 mcg SuWe ZEE Administration Famotidine 20 mg 02/28/25 09:00 03/02/25 08:17 Famotidine 20 Mg Tablet PO 20 mg DAILY ZEE Administration Folic Acid 1 mg 02/28/25 09:00 03/02/25 08:17 Folic Acid 1 Mg Tablet PO 1 mg DAILY ZEE Administration Furosemide 40 mg 02/27/25 21:00 03/02/25 08:30 Furosemide Inj 40 Mg/4 Ml Vial IV PUSH 40 mg Q12HR ZEE Administration Gabapentin 300 mg 02/28/25 09:00 03/02/25 08:17 Gabapentin 300 Mg Capsule PO 300 mg TID ZEE Administration Glucagon 1 mg 02/27/25 14:34 Glucagon For Inj 1 Mg Vial IM PRN PRN Hypoglycemia Protocol Glucose 15 gm 02/27/25 14:34 Glucose Oral Gel 15 Gm Of Glucse In 37.5 Gm Tube PO PRN PRN Hypoglycemia Protocol Hydroxychloroquine Sulfate 400 mg 02/27/25 23:50 03/01/25 20:16 Hydroxychloroquine Sulfate 200 Mg Tablet PO 400 mg HS ZEE Administration Cefazolin Sodium 1 gm/ Sodium 50 mls @ 100 mls/hr 02/27/25 22:00 03/02/25 09:51 Chloride IVPB Infused Q8HR ZEE Infusion Dextrose 1,000 mls @ 100 mls/hr 02/27/25 14:34 Dextrose 5% 1,000 Ml IVPB PRN PRN Hypoglycemia Protocol Clindamycin Phosphate 600 mg in 50 mls @ 100 mls/hr 03/01/25 18:00 03/02/25 08:50 Clindamycin 600 Mg/D5w 50 Ml IVPB Infused Q8H ZEE Infusion Ibuprofen 600 mg 02/27/25 14:36 02/28/25 08:28 Ibuprofen 600 Mg Tablet PO 600 mg Q6H PRN Administration Pain Rated 4-6 Insulin Aspart 4 - 8 units 02/27/25 17:00 03/02/25 08:16 Insulin Aspart (*Bkc) 100 Units/Ml SUB-Q Not Given TIDWM [facility] Protocol Insulin Glargine 45 units 02/27/25 23:45 03/02/25 08:17 Insulin Glargine (*Bkc) 100 Units/Ml SUB-Q 45 units Q12HR ZEE Administration Lisinopril 40 mg 02/27/25 23:50 03/01/25 20:16 Lisinopril 20 Mg Tablet PO 40 mg HS ZEE Administration Loratadine 10 mg 02/28/25 09:00 03/02/25 08:17 Loratadine 10 Mg Tablet PO 10 mg DAILY ZEE Administration Magnesium Oxide 400 mg 02/28/25 09:00 03/02/25 08:17 Magnesium Oxide 400 Mg Tablet PO 400 mg DAILY ZEE Administration Metoprolol Tartrate 12.5 mg 02/27/25 23:45 03/02/25 08:16 Metoprolol Tartrate 12.5 Mg Tablet PO 12.5 mg Q12HR ZEE Administration Pantoprazole Sodium 40 mg 02/28/25 09:00 03/02/25 08:17 Pantoprazole 40 Mg Tablet PO 40 mg DAILY ZEE Administration Potassium Chloride 10 meq 02/28/25 09:00 03/02/25 08:17 Potassium Chloride 10 Meq Er Tablet PO 10 meq DAILY ZEE Administration Tramadol HCl 50 mg 02/27/25 23:35 02/28/25 12:56 Tramadol Hcl (*Crx) 50 Mg Tablet PO 50 mg Q4H PRN Administration Severe pain 7-10 Venlafaxine HCl 150 mg 02/28/25 09:00 03/02/25 08:17 Venlafaxine Hcl Xr 75 Mg Cap.Er.24h PO 150 mg QAM ZEE Administration Radiology Results: ITS Impressions Chest X-Ray 02/27/25 13:23 IMPRESSION: No acute cardiopulmonary process. Chronic right hemidiaphragm elevation. Venous Doppler Study 02/28/25 09:33 IMPRESSION: 1. No deep venous thrombosis in the right lower limb. Labs Labs: Laboratory Results - last 24 hr 03/01/25 03/01/25 03/01/25 11:53 17:13 19:47 Potassium POC Capillary Glucose 166 H 234 H 279 H 03/02/25 03/02/25 04:29 07:58 Potassium 3.6 POC Capillary Glucose 101
[2025-03-02] MEDS: CEFEPIME 2 GM in SODIUM CHLORIDE 0.9% IV 50 ML 100 ML IVPB (18:00)
[2025-03-02] MEDS: ATORVASTATIN 20 MG TABLET PO (20:25)
[2025-03-02] MEDS: HYDROXYCHLOROQUINE SULFATE 200 MG TABLET 400 MG PO (20:25)
[2025-03-02] MEDS: CYCLOBENZAPRINE HCL 10 MG TABLET PO (20:25)
[2025-03-03] VITALS (9 sets, daily range): BP systolic 109–158; BP diastolic 57–84; PULSE 102–109; RESP 16–18; TEMP 36.2–36.8; O2SAT 91–97
[2025-03-03] MEDS: CEFEPIME 2 GM in SODIUM CHLORIDE 0.9% IV 50 ML 100 ML IVPB ×3 (01:59→17:10)
[2025-03-03] MEDS: CLINDAMYCIN 600 MG/D5W 50 ML 600 MG/50 ML PIGGYBACK 100 MG IVPB ×3 (02:32→17:43)
[2025-03-03] MEDS: METOPROLOL TARTRATE 12.5 MG TABLET PO ×2 (08:27→20:43)
[2025-03-03] MEDS: MAGNESIUM OXIDE 400 MG TABLET PO (08:27)
[2025-03-03] MEDS: VENLAFAXINE HCL XR 75 MG CAP.ER.24H 150 MG PO (08:27)
[2025-03-03] MEDS: GABAPENTIN 300 MG CAPSULE PO ×3 (08:27→17:10)
[2025-03-03] MEDS: POTASSIUM CHLORIDE 10 MEQ ER TABLET PO (08:29)
[2025-03-03] MEDS: FOLIC ACID 1 MG TABLET PO (08:29)
[2025-03-03] MEDS: IBUPROFEN 600 MG TABLET PO (08:29)
[2025-03-03] MEDS: FAMOTIDINE 20 MG TABLET PO (08:29)
[2025-03-03] MEDS: LORATADINE 10 MG TABLET PO (08:29)
[2025-03-03] MEDS: PANTOPRAZOLE 40 MG TABLET PO (08:29)
[2025-03-03] MEDS: DICLOFENAC SOD 75 MG TABLET.EC PO ×2 (08:29→17:10)
[2025-03-03] MEDS: ENOXAPARIN 40 MG/0.4 ML SYRINGE SUB-Q (08:30)
[2025-03-03] MEDS: FUROSEMIDE INJ 40 MG/4 ML VIAL IV PUSH ×2 (08:30→20:42)
[2025-03-03] MEDS: INSULIN GLARGINE (*BKC) 100 UNITS/ML 45 UNITS SUB-Q ×2 (08:32→20:46)
[2025-03-03 08:41] LABS: Hematocrit 38.3 % (37.0-47.0); Hemoglobin 12.3 g/dL (12.0-15.0); Mean Corpuscular HGB Conc 32.1 g/dl (32-36); Mean Corpuscular Hemoglobin 29.8 pg (26-34); Mean Corpuscular Volume 92.7 fl (80-100); Platelet Count Result 401 k/mm3 (150-375); Red Blood Count 4.13 M/mm3 (4.2-5.4); White Blood Count 12.7 K/mm3 (4.5-10.0)
[2025-03-03 09:00] LABS: Alanine Aminotransferase 49 U/L (6-35); Albumin Level 3.6 g/dL (3.5-5.1); Alkaline Phosphatase 53 U/L (38-126); Anion Gap 5 mmol/L (4-12); Aspartate Amino Transferase 31 U/L (14-36); Bilirubin,Total 0.5 mg/dL (0.2-1.3); Blood Urea Nitrogen 18 mg/dL (7-17); Calcium 8.6 mg/dL (8.4-10.2); Carbon Dioxide 32 mmol/L (22-30); Chloride 98 mmol/L (98-107); Estimated CRCL calculation 101 ml/min; Estimated Glomerular Filt Rate > 60; Glucose 159 mg/dL (65-110); Potassium 3.4 mmol/L (3.4-5.0); Sodium 135 mmol/L (137-145); Total Protein 6.1 g/dL (6.3-8.2)
--- NOTE | 2025-03-03 09:21 | P.PNIM_ITS ---
Progress Note: A&P Assessment and Plan (1) Cellulitis of right lower extremity: Code(s): L03.115 - Cellulitis of right lower limb Status: Acute Plan Cellulitis: Qualifiers: Laterality: right Site of cellulitis: extremity Site of cellulitis of extremity: lower extremity Qualified Code(s): L03.115 - Cellulitis of right lower limb Code(s): L03.90 - Cellulitis, unspecified Status: Acute Assessment and Plan: Leukocytosis persists and and trending up Physical examination showed cellulitis of right lower extremity with blister continue pus Was on clindamycin changed Ancef, changed to cefepime to cover Pseudomonas infection on 03/02 Cellulitis improving Leukocytosis is trending down Patient is afebrile Continue current treatment Diabetes mellitus, insulin dependent (IDDM), uncontrolled: Status: Acute Assessment and Plan: Continue TID dosing of insulin with meals and Lantus 45 units BID. Glucose is controlled in the target range Hypertension: Qualifiers: Hypertension type: unspecified Qualified Code(s): I10 - Essential (primary) hypertension Code(s): I10 - Essential (primary) hypertension Status: Chronic Assessment and Plan: Continue BP meds. Current BP showing good control at 131/78. JEREMY on CPAP: Code(s): G47.33 - Obstructive sleep apnea (adult) (pediatric) Status: Chronic Continue home CPAP Subjective Date/time seen: 03/03/25 09:21 Interval history: I saw exam patient today. Patient is afebrile Leukocytosis improving Physical examination showed cellulitis of right lower extremity, cellulitis improving Patient denies chest pain of breath, abdomen pain nausea vomiting diarrhea. Leg pain is improving Exam Narrative: GENERAL: Pleasant, in no acute distress. Well-nourished. - EYES: EOMI. Anicteric. - HENT: Moist mucous membranes. - LUNGS: Clear to auscultation bilateral ly, no wheezing, rhonchi, or rales. - CARDIOVASCULAR: Regular rate and rhyth m. No murmur. No JVD. - ABDOMEN: Soft, non-tender and non-dist ended. No palpable masses. - EXTREMITIES: No edema. Peripheral puls es 2+. Non-tender. - NEUROLOGIC: No focal neurological defi cits. CN II-XII grossly intact. - PSYCHIATRIC: Awake, Alert and oriented x 3. Appropriate mood and affect. - SKIN: Redness, tender swelling of rig ht lower extremity with scattered small abscess - LYMPH: No cervical lymphadenopathy. Objective Data Vital Signs Vital Signs: Vital Signs - 24 hr 03/02/25 14:00 03/02/25 19:59 03/02/25 20:00 Temperature 97.4 F L Pulse Rate 94 103 H Respiratory Rate 16 20 Blood Pressure 126/69 Pulse Oximetry 99 99 Oxygen Delivery Room Air Room Air Fraction of Inspired Oxygen 21 03/02/25 20:25 03/02/25 20:30 03/02/25 22:13 Temperature 97.7 F Pulse Rate 95 98 103 H Respiratory Rate 20 Blood Pressure 122/73 Pulse Oximetry 95 96 Oxygen Delivery Fraction of Inspired Oxygen 03/03/25 01:24 03/03/25 04:18 03/03/25 04:30 Temperature 98.3 F Pulse Rate 105 H 103 H 106 H Respiratory Rate 18 Blood Pressure 122/76 Pulse Oximetry 96 96 91 Oxygen Delivery Fraction of Inspired Oxygen 03/03/25 08:27 Temperature Pulse Rate 104 H Respiratory Rate Blood Pressure Pulse Oximetry Oxygen Delivery Fraction of Inspired Oxygen Intake/Output Intake/Output: Intake & Output 02/28/25 03/01/25 03/02/25 03/03/25 23:59 23:59 23:59 23:59 Intake Total 1000 1879 2059 650 Balance 1000 1879 2059 650 Meds/Results Medications: Active Medications Generic Name Dose Route Start Last Admin Trade Name Freq PRN Reason Stop Dose Admin Acetaminophen 650 mg 02/27/25 14:36 Acetaminophen 325 Mg Tablet PO Q6H PRN Mild Pain (1-3) or Fever Albuterol 2.5 mg 02/27/25 23:35 Albuterol Sulfate Neb 2.5 Mg/3 Ml Inh INHALATION DAILY PRN Shortness Of Breath Albuterol 2 puff 02/27/25 23:35 Albuterol Sulfate (*Sp) Aerosol 1 Puff INHALATION Q8HRT PRN shortness of breath or wheezing Atorvastatin Calcium 20 mg 02/27/25 23:50 03/02/25 20:25 Atorvastatin 20 Mg Tablet PO 20 mg HS ZEE Administration Cyclobenzaprine HCl 10 mg 02/27/25 23:50 03/02/25 20:25 Cyclobenzaprine Hcl 10 Mg Tablet PO 10 mg HS ZEE Administration Dextrose 12.5 gm 02/27/25 14:34 Dextrose 50% 25 Gm/50 Ml Syringe IV PUSH PRN PRN Hypoglycemia Protocol Diclofenac Sodium 75 mg 02/28/25 08:00 03/03/25 08:29 Diclofenac Sod 75 Mg Tablet.Ec PO 75 mg BIDWM ZEE Administration Enoxaparin Sodium 40 mg 02/28/25 09:00 03/03/25 08:30 Enoxaparin 40 Mg/0.4 Ml Syringe SUB-Q 40 mg DAILY ZEE Administration Ergocalciferol 1,250 mcg 03/01/25 09:00 03/01/25 08:28 Ergocalciferol (Vitamin D2) 1,250 Mcg (50,000 Units) Capsule PO 1,250 mcg SuWe ZEE Administration Famotidine 20 mg 02/28/25 09:00 03/03/25 08:29 Famotidine 20 Mg Tablet PO 20 mg DAILY ZEE Administration Folic Acid 1 mg 02/28/25 09:00 03/03/25 08:29 Folic Acid 1 Mg Tablet PO 1 mg DAILY ZEE Administration Furosemide 40 mg 02/27/25 21:00 03/03/25 08:30 Furosemide Inj 40 Mg/4 Ml Vial IV PUSH 40 mg Q12HR ZEE Administration Gabapentin 300 mg 02/28/25 09:00 03/03/25 08:27 Gabapentin 300 Mg Capsule PO 300 mg TID ZEE Administration Glucagon 1 mg 02/27/25 14:34 Glucagon For Inj 1 Mg Vial IM PRN PRN Hypoglycemia Protocol Glucose 15 gm 02/27/25 14:34 Glucose Oral Gel 15 Gm Of Glucse In 37.5 Gm Tube PO PRN PRN Hypoglycemia Protocol Hydroxychloroquine Sulfate 400 mg 02/27/25 23:50 03/02/25 20:25 Hydroxychloroquine Sulfate 200 Mg Tablet PO 400 mg HS ZEE Administration Dextrose 1,000 mls @ 100 mls/hr 02/27/25 14:34 Dextrose 5% 1,000 Ml IVPB PRN PRN Hypoglycemia Protocol Clindamycin Phosphate 600 mg in 50 mls @ 100 mls/hr 03/01/25 18:00 03/03/25 03:02 Clindamycin 600 Mg/D5w 50 Ml IVPB Infused Q8H ZEE Infusion Cefepime HCl 2 gm/ Sodium 50 mls @ 100 mls/hr 03/02/25 18:00 03/03/25 02:29 Chloride IVPB Infused Q8H ZEE Infusion Ibuprofen 600 mg 02/27/25 14:36 03/03/25 08:29 Ibuprofen 600 Mg Tablet PO 600 mg Q6H PRN Administration Pain Rated 4-6 Insulin Aspart 4 - 8 units 02/27/25 17:00 03/03/25 08:41 Insulin Aspart (*Bkc) 100 Units/Ml SUB-Q Not Given TIDWM [facility] Protocol Insulin Glargine 45 units 02/27/25 23:45 03/03/25 08:32 Insulin Glargine (*Bkc) 100 Units/Ml SUB-Q 45 units Q12HR ZEE Administration Lisinopril 40 mg 02/27/25 23:50 03/02/25 20:25 Lisinopril 20 Mg Tablet PO 40 mg HS ZEE Administration Loratadine 10 mg 02/28/25 09:00 03/03/25 08:29 Loratadine 10 Mg Tablet PO 10 mg DAILY ZEE Administration Magnesium Oxide 400 mg 02/28/25 09:00 03/03/25 08:27 Magnesium Oxide 400 Mg Tablet PO 400 mg DAILY ZEE Administration Metoprolol Tartrate 12.5 mg 02/27/25 23:45 03/03/25 08:27 Metoprolol Tartrate 12.5 Mg Tablet PO 12.5 mg Q12HR ZEE Administration Pantoprazole Sodium 40 mg 02/28/25 09:00 03/03/25 08:29 Pantoprazole 40 Mg Tablet PO 40 mg DAILY ZEE Administration Potassium Chloride 10 meq 02/28/25 09:00 03/03/25 08:29 Potassium Chloride 10 Meq Er Tablet PO 10 meq DAILY ZEE Administration Tramadol HCl 50 mg 02/27/25 23:35 02/28/25 12:56 Tramadol Hcl (*Crx) 50 Mg Tablet PO 50 mg Q4H PRN Administration Severe pain 7-10 Venlafaxine HCl 150 mg 02/28/25 09:00 03/03/25 08:27 Venlafaxine Hcl Xr 75 Mg Cap.Er.24h PO 150 mg QAM ZEE Administration Radiology Results: ITS Impressions Chest X-Ray 02/27/25 13:23 IMPRESSION: No acute cardiopulmonary process. Chronic right hemidiaphragm elevation. Venous Doppler Study 02/28/25 09:33 IMPRESSION: 1. No deep venous thrombosis in the right lower limb. Labs Labs: Laboratory Results - last 24 hr 03/02/25 03/02/2503/02/25 12:03 16:44 20:28 WBC RBC Hgb Hct MCV MCH MCHC RDW Plt Count MPV Sodium Potassium Chloride Carbon Dioxide Anion Gap BUN Creatinine Estim Creat Clear Calc Estimated GFR Glucose POC Capillary Glucose 95 108 H 141 H Calcium Total Bilirubin AST ALT Alkaline Phosphatase Total Protein Albumin 03/03/25 03/03/25 07:54 08:32 WBC 12.7 H RBC 4.13 L Hgb 12.3 Hct 38.3 MCV 92.7 MCH 29.8 MCHC 32.1 RDW 14.7 H Plt Count 401 H MPV 10.2 Sodium 135 L Potassium 3.4 Chloride 98 Carbon Dioxide 32 H Anion Gap 5 BUN 18 H Creatinine 0.89 Estim Creat Clear Calc 101 Estimated GFR > 60 Glucose 159 H POC Capillary Glucose 113 H Calcium 8.6 Total Bilirubin 0.5 AST 31 ALT 49 H Alkaline Phosphatase 53 Total Protein 6.1 L Albumin 3.6
[2025-03-03] MEDS: CYCLOBENZAPRINE HCL 10 MG TABLET PO (20:43)
[2025-03-03] MEDS: HYDROXYCHLOROQUINE SULFATE 200 MG TABLET 400 MG PO (20:43)
[2025-03-03] MEDS: ATORVASTATIN 20 MG TABLET PO (20:43)
[2025-03-04] MEDS: CEFEPIME 2 GM in SODIUM CHLORIDE 0.9% IV 50 ML 100 ML IVPB ×3 (01:32→17:18)
[2025-03-04] MEDS: CLINDAMYCIN 600 MG/D5W 50 ML 600 MG/50 ML PIGGYBACK 100 MG IVPB ×3 (02:08→18:19)
[2025-03-04 04:34] VITALS: BP 145/81; PULSE 100; RESP 18; TEMP 36.4; O2SAT 98
[2025-03-04 05:42] LABS: Potassium 3.6 mmol/L (3.4-5.0)
[2025-03-04 08:05] VITALS: O2SAT 94
[2025-03-04] MEDS: PANTOPRAZOLE 40 MG TABLET PO (08:43)
[2025-03-04] MEDS: DICLOFENAC SOD 75 MG TABLET.EC PO ×2 (08:43→17:18)
[2025-03-04] MEDS: FAMOTIDINE 20 MG TABLET PO (08:43)
[2025-03-04] MEDS: GABAPENTIN 300 MG CAPSULE PO ×3 (08:43→17:18)
[2025-03-04] MEDS: POTASSIUM CHLORIDE 10 MEQ ER TABLET PO (08:43)
[2025-03-04] MEDS: MAGNESIUM OXIDE 400 MG TABLET PO (08:43)
[2025-03-04] MEDS: IBUPROFEN 600 MG TABLET PO (08:43)
[2025-03-04] MEDS: FOLIC ACID 1 MG TABLET PO (08:43)
[2025-03-04 08:44] VITALS: PULSE 100
[2025-03-04] MEDS: METOPROLOL TARTRATE 12.5 MG TABLET PO ×2 (08:44→21:16)
[2025-03-04] MEDS: VENLAFAXINE HCL XR 75 MG CAP.ER.24H 150 MG PO (08:44)
[2025-03-04] MEDS: ENOXAPARIN 40 MG/0.4 ML SYRINGE SUB-Q (08:44)
[2025-03-04] MEDS: LORATADINE 10 MG TABLET PO (08:44)
[2025-03-04] MEDS: INSULIN GLARGINE (*BKC) 100 UNITS/ML 45 UNITS SUB-Q ×2 (08:45→21:14)
[2025-03-04] MEDS: FUROSEMIDE INJ 40 MG/4 ML VIAL IV PUSH ×2 (08:46→21:16)
--- NOTE | 2025-03-04 09:40 | P.PNIM_ITS ---
Progress Note: A&P Assessment and Plan (1) Cellulitis of right lower extremity: Code(s): L03.115 - Cellulitis of right lower limb Status: Acute Plan Cellulitis: Qualifiers: Laterality: right Site of cellulitis: extremity Site of cellulitis of extremity: lower extremity Qualified Code(s): L03.115 - Cellulitis of right lower limb Code(s): L03.90 - Cellulitis, unspecified Status: Acute Assessment and Plan: Leukocytosis persists and and trending up Physical examination showed cellulitis of right lower extremity with blister continue pus Was on clindamycin changed Ancef, changed to cefepime to cover Pseudomonas infection on 03/02 Cellulitis improving Leukocytosis is trending down Patient is afebrile Continue current treatment Follow-up of procalcitonin 0.1 May change to oral antibiotics tomorrow if cellulitis continue to improve Diabetes mellitus, insulin dependent (IDDM), uncontrolled: Status: Acute Assessment and Plan: Continue TID dosing of insulin with meals and Lantus 45 units BID. Glucose is controlled in the target range Hypertension: Qualifiers: Hypertension type: unspecified Qualified Code(s): I10 - Essential (primary) hypertension Code(s): I10 - Essential (primary) hypertension Status: Chronic Assessment and Plan: Continue BP meds. Current BP showing good control at 131/78. JEREMY on CPAP: Code(s): G47.33 - Obstructive sleep apnea (adult) (pediatric) Status: Chronic Continue home CPAP Subjective Date/time seen: 03/04/25 09:40 Interval history: I saw exam patient today. Patient is afebrile cellulitis of right lower extremity continue to improve Patient denies chest pain of breath, abdomen pain nausea vomiting diarrhea. Exam Narrative: GENERAL: Pleasant, in no acute distress. Well-nourished. - EYES: EOMI. Anicteric. - HENT: Moist mucous membranes. - LUNGS: Clear to auscultation bilateral ly, no wheezing, rhonchi, or rales. - CARDIOVASCULAR: Regular rate and rhyth m. No murmur. No JVD. - ABDOMEN: Soft, non-tender and non-dist ended. No palpable masses. - EXTREMITIES: No edema. Peripheral puls es 2+. Non-tender. - NEUROLOGIC: No focal neurological defi cits. CN II-XII grossly intact. - PSYCHIATRIC: Awake, Alert and oriented x 3. Appropriate mood and affect. - SKIN: Redness, tender swelling of rig ht lower extremity with scattered small abscess - LYMPH: No cervical lymphadenopathy. Objective Data Vital Signs Vital Signs: Vital Signs - 24 hr 03/03/25 13:59 03/03/25 18:56 03/03/25 18:56 Temperature 97.2 F L Pulse Rate 102 H Respiratory Rate 16 Blood Pressure 118/69 109/57 L 110/71 Pulse Oximetry 97 Oxygen Delivery 03/03/25 18:56 03/03/25 20:00 03/03/25 20:43 Temperature Pulse Rate 109 H Respiratory Rate Blood Pressure 111/73 Pulse Oximetry Oxygen Delivery Room Air 03/03/25 21:44 03/03/25 22:26 03/04/25 04:34 Temperature 98 F 97.6 F Pulse Rate 109 H 107 H 100 Respiratory Rate 18 18 Blood Pressure 158/84 H 145/81 H Pulse Oximetry 93 95 98 Oxygen Delivery 03/04/25 08:05 03/04/25 08:40 03/04/25 08:44 Temperature Pulse Rate 100 Respiratory Rate Blood Pressure Pulse Oximetry 94 Oxygen Delivery Room Air Room Air Intake/Output Intake/Output: Intake & Output 03/01/25 03/02/25 03/03/25 03/04/25 23:59 23:59 23:59 23:59 Intake Total 1879 2059 1570 540 Balance 1879 2059 1569 540 Meds/Results Medications: Active Medications Generic Name Dose Route Start Last Admin Trade Name Freq PRN Reason Stop Dose Admin Acetaminophen 650 mg 02/27/25 14:36 Acetaminophen 325 Mg Tablet PO Q6H PRN Mild Pain (1-3) or Fever Albuterol 2.5 mg 02/27/25 23:35 Albuterol Sulfate Neb 2.5 Mg/3 Ml Inh INHALATION DAILY PRN Shortness Of Breath Albuterol 2 puff 02/27/25 23:35 Albuterol Sulfate (*Sp) Aerosol 1 Puff INHALATION Q8HRT PRN shortness of breath or wheezing Atorvastatin Calcium 20 mg 02/27/25 23:50 03/03/25 20:43 Atorvastatin 20 Mg Tablet PO 20 mg HS ZEE Administration Cyclobenzaprine HCl 10 mg 02/27/25 23:50 03/03/25 20:43 Cyclobenzaprine Hcl 10 Mg Tablet PO 10 mg HS ZEE Administration Dextrose 12.5 gm 02/27/25 14:34 Dextrose 50% 25 Gm/50 Ml Syringe IV PUSH PRN PRN Hypoglycemia Protocol Diclofenac Sodium 75 mg 02/28/25 08:00 03/04/25 08:43 Diclofenac Sod 75 Mg Tablet.Ec PO 75 mg BIDWM ZEE Administration Enoxaparin Sodium 40 mg 02/28/25 09:00 03/04/25 08:44 Enoxaparin 40 Mg/0.4 Ml Syringe SUB-Q 40 mg DAILY ZEE Administration Ergocalciferol 1,250 mcg 03/01/25 09:00 03/01/25 08:28 Ergocalciferol (Vitamin D2) 1,250 Mcg (50,000 Units) Capsule PO 1,250 mcg SuWe ZEE Administration Famotidine 20 mg 02/28/25 09:00 03/04/25 08:43 Famotidine 20 Mg Tablet PO 20 mg DAILY ZEE Administration Folic Acid 1 mg 02/28/25 09:00 03/04/25 08:43 Folic Acid 1 Mg Tablet PO 1 mg DAILY ZEE Administration Furosemide 40 mg 02/27/25 21:00 03/04/25 08:46 Furosemide Inj 40 Mg/4 Ml Vial IV PUSH 40 mg Q12HR ZEE Administration Gabapentin 300 mg 02/28/25 09:00 03/04/25 08:43 Gabapentin 300 Mg Capsule PO 300 mg TID ZEE Administration Glucagon 1 mg 02/27/25 14:34 Glucagon For Inj 1 Mg Vial IM PRN PRN Hypoglycemia Protocol Glucose 15 gm 02/27/25 14:34 Glucose Oral Gel 15 Gm Of Glucse In 37.5 Gm Tube PO PRN PRN Hypoglycemia Protocol Hydroxychloroquine Sulfate 400 mg 02/27/25 23:50 03/03/25 20:43 Hydroxychloroquine Sulfate 200 Mg Tablet PO 400 mg HS ZEE Administration Dextrose 1,000 mls @ 100 mls/hr 02/27/25 14:34 Dextrose 5% 1,000 Ml IVPB PRN PRN Hypoglycemia Protocol Clindamycin Phosphate 600 mg in 50 mls @ 100 mls/hr 03/01/25 18:00 03/04/25 02:38 Clindamycin 600 Mg/D5w 50 Ml IVPB Infused Q8H ZEE Infusion Cefepime HCl 2 gm/ Sodium 50 mls @ 100 mls/hr 03/02/25 18:00 03/04/25 02:02 Chloride IVPB Infused Q8H ZEE Infusion Ibuprofen 600 mg 02/27/25 14:36 03/04/25 08:43 Ibuprofen 600 Mg Tablet PO 600 mg Q6H PRN Administration Pain Rated 4-6 Insulin Aspart 4 - 8 units 02/27/25 17:00 03/04/25 07:59 Insulin Aspart (*Bkc) 100 Units/Ml SUB-Q Not Given TIDWM [facility] Protocol Insulin Glargine 45 units 02/27/25 23:45 03/04/25 08:45 Insulin Glargine (*Bkc) 100 Units/Ml SUB-Q 45 units Q12HR ZEE Administration Lisinopril 40 mg 02/27/25 23:50 03/03/25 20:43 Lisinopril 20 Mg Tablet PO 40 mg HS ZEE Administration Loratadine 10 mg 02/28/25 09:00 03/04/25 08:44 Loratadine 10 Mg Tablet PO 10 mg DAILY ZEE Administration Magnesium Oxide 400 mg 02/28/25 09:00 03/04/25 08:43 Magnesium Oxide 400 Mg Tablet PO 400 mg DAILY ZEE Administration Metoprolol Tartrate 12.5 mg 02/27/25 23:45 03/04/25 08:44 Metoprolol Tartrate 12.5 Mg Tablet PO 12.5 mg Q12HR ZEE Administration Pantoprazole Sodium 40 mg 02/28/25 09:00 03/04/25 08:43 Pantoprazole 40 Mg Tablet PO 40 mg DAILY ZEE Administration Potassium Chloride 10 meq 02/28/25 09:00 03/04/25 08:43 Potassium Chloride 10 Meq Er Tablet PO 10 meq DAILY ZEE Administration Tramadol HCl 50 mg 02/27/25 23:35 02/28/25 12:56 Tramadol Hcl (*Crx) 50 Mg Tablet PO 50 mg Q4H PRN Administration Severe pain 7-10 Venlafaxine HCl 150 mg 02/28/25 09:00 03/04/25 08:44 Venlafaxine Hcl Xr 75 Mg Cap.Er.24h PO 150 mg QAM ZEE Administration Radiology Results: ITS Impressions Chest X-Ray 02/27/25 13:23 IMPRESSION: No acute cardiopulmonary process. Chronic right hemidiaphragm elevation. Venous Doppler Study 02/28/25 09:33 IMPRESSION: 1. No deep venous thrombosis in the right lower limb. Labs Labs: Laboratory Results - last 24 hr 03/03/25 03/03/25 03/03/25 11:56 16:51 20:39 Potassium POC Capillary Glucose 160 H 172 H 231 H 03/04/25 03/04/25 05:10 07:49 Potassium 3.6 POC Capillary Glucose 164 H
[2025-03-04 09:52] LABS: Hematocrit 39.2 % (37.0-47.0); Hemoglobin 12.2 g/dL (12.0-15.0); Immature Granulocyte Percent A 1.3 % (0-0.5); Lymphocytes Absolute Auto 2.18 K/mm3 (0.9-3.2); Mean Corpuscular HGB Conc 31.1 g/dl (32-36); Mean Corpuscular Hemoglobin 29.0 pg (26-34); Mean Corpuscular Volume 93.1 fl (80-100); Nucleated Red Blood Cells Absolute Auto 0.000 K/mm3 (0.0-0.012); Nucleated Red Blood Cells Perc 0.0 % (0.0-0.2); Platelet Count Result 410 k/mm3 (150-375); Red Blood Count 4.21 M/mm3 (4.2-5.4); White Blood Count 12.1 K/mm3 (4.5-10.0)
[2025-03-04 09:56] LABS: Anion Gap 8 mmol/L (4-12); Blood Urea Nitrogen 19 mg/dL (7-17); Calcium 8.8 mg/dL (8.4-10.2); Carbon Dioxide 25 mmol/L (22-30); Chloride 99 mmol/L (98-107); Estimated CRCL calculation 96 ml/min; Estimated Glomerular Filt Rate > 60; Glucose 181 mg/dL (65-110); Sodium 132 mmol/L (137-145)
[2025-03-04 10:20] LABS: Procalcitonin 0.1 ng/mL
[2025-03-04] MEDS: INSULIN ASPART (*BKC) 100 UNITS/ML SUB-Q ×2 (12:28→17:18)
[2025-03-04 14:00] VITALS: BP 123/65; PULSE 100; RESP 16; TEMP 36.2; O2SAT 94
[2025-03-04 20:25] VITALS: BP 100/65; PULSE 106; RESP 18; TEMP 36.1; O2SAT 93
[2025-03-04 21:16] VITALS: PULSE 110
[2025-03-04] MEDS: CYCLOBENZAPRINE HCL 10 MG TABLET PO (21:16)
[2025-03-04] MEDS: ATORVASTATIN 20 MG TABLET PO (21:16)
[2025-03-04] MEDS: HYDROXYCHLOROQUINE SULFATE 200 MG TABLET 400 MG PO (21:16)
[2025-03-05] VITALS (8 sets, daily range): BP systolic 101–130; BP diastolic 61–81; PULSE 97–109; RESP 14–20; TEMP 36.3–36.4; O2SAT 92–98
[2025-03-05] MEDS: CEFEPIME 2 GM in SODIUM CHLORIDE 0.9% IV 50 ML 100 ML IVPB ×3 (02:00→17:18)
[2025-03-05] MEDS: CLINDAMYCIN 600 MG/D5W 50 ML 600 MG/50 ML PIGGYBACK 100 MG IVPB ×3 (02:37→17:57)
[2025-03-05 05:35] LABS: Hematocrit 36.7 % (37.0-47.0); Hemoglobin 11.8 g/dL (12.0-15.0); Immature Granulocyte Percent A 1.9 % (0-0.5); Lymphocytes Absolute Auto 1.85 K/mm3 (0.9-3.2); Mean Corpuscular HGB Conc 32.2 g/dl (32-36); Mean Corpuscular Hemoglobin 29.6 pg (26-34); Mean Corpuscular Volume 92.0 fl (80-100); Nucleated Red Blood Cells Absolute Auto 0.000 K/mm3 (0.0-0.012); Nucleated Red Blood Cells Perc 0.0 % (0.0-0.2); Platelet Count Result 348 k/mm3 (150-375); Red Blood Count 3.99 M/mm3 (4.2-5.4); White Blood Count 10.8 K/mm3 (4.5-10.0)
[2025-03-05 05:58] LABS: Anion Gap 4 mmol/L (4-12); Blood Urea Nitrogen 21 mg/dL (7-17); Calcium 8.6 mg/dL (8.4-10.2); Carbon Dioxide 28 mmol/L (22-30); Chloride 96 mmol/L (98-107); Estimated CRCL calculation 88 ml/min; Estimated Glomerular Filt Rate 57; Glucose 164 mg/dL (65-110); Potassium 3.7 mmol/L (3.4-5.0); Sodium 128 mmol/L (137-145)
--- NOTE | 2025-03-05 07:27 | P.PNIM_ITS ---
Progress Note: A&P Assessment and Plan (1) Hypertension: Qualifiers: Hypertension type: unspecified Qualified Code(s): I10 - Essential (primary) hypertension Code(s): I10 - Essential (primary) hypertension Status: Chronic (2) Diabetes mellitus, insulin dependent (IDDM), uncontrolled: Status: Acute (3) Cellulitis: Qualifiers: Laterality: right Site of cellulitis: extremity Site of cellulitis of extremity: lower extremity Qualified Code(s): L03.115 - Cellulitis of right lower limb Code(s): L03.90 - Cellulitis, unspecified Status: Acute (4) Vasculitis: Code(s): I77.6 - Arteritis, unspecified Status: Chronic (5) JEREMY on CPAP: Code(s): G47.33 - Obstructive sleep apnea (adult) (pediatric) Status: Chronic Plan 49-year-old female with history of insulin-dependent diabetes mellitus, hypertension, JEREMY on CPAP, hypercholesterolemia, vasculitis, autoimmune disorder, presents to [place] on 02/07/2025 with worsening bilateral lower extremity edema. The patient was tapering her prednisone down which is when the redness started. She thought the redness was improving after the prednisone was increased again on this admission. However, on 03/01/2025 the prednisone was actually discontinued. There is no documentation or attention as to why this was discontinued. Around the same time her antibiotics were increased to clindamycin and cefepime. At this point we will continue the current regimen since the patient believes her infection is improved. Asked nurse to emmett the borders with surgical marker. The leukocytosis has been improving since the discontinuation of prednisone. Blood cultures from 02/07/2025 her pending. Patient reports feeling dizzy for the past few days. He was placed on Lasix 40 mg IV b.i.d. and that has been continued throughout. She appears clinically dry at the mucous membranes has elevated serum creatinine. She thinks her swelling has greatly improved. Discontinue Lasix and follow the renal function. Check orthostatic blood pressures. Continue current insulin regimen. Blood sugars at goal. Patient wishes to be full code. Lovenox 40 mg subQ q.day. Subjective Date/time seen: 03/05/25 07:27 Interval history: No major acute overnight events. Patient does report that over the past few days she has a bit of dizziness. Reports her Lasix is working really well and her legs are much less swollen than usual. She feels the affection is improved because it is when from red to pink. The surface area of the infection has not decreased. She reports improvement since a few days prior. Review of Systems Review of Systems: All systems reviewed & are unremarkable except as noted in HPI and below (Subjective) Exam Const: General: comfortable and no acute distress Other: A&O x3 HENMT: Mouth: Yes dry mucous membranes Eyes: Pupils: Equal, round and reactive pupils present Neck: Neck: supple Resp: Effort & Inspection: normal respiratory effort Auscultation: clear to auscultation bilaterally Cardio: Rate: regular rate Rhythm: regular rhythm Heart sounds: no gallops GI: Inspection: non-distended GI Palp: Yes Soft to palpation Skin: Other: Light red blanching erythema which is warm to touch over the anterior lateral right lower extremity distal to the knee. Bilateral lower extremities trace pitting edema. Feet cold to touch, faint pedal pulses. Good sensation. Neuro: Motor exam (neuro): 5/5 motor strength present throughout Extrem: General: edema Objective Data Vital Signs Vital Signs: Vital Signs - 24 hr 03/04/25 08:05 03/04/25 08:40 03/04/25 08:44 Temperature Pulse Rate 100 Respiratory Rate Blood Pressure Pulse Oximetry 94 Oxygen Delivery Room Air Room Air 03/04/25 14:00 03/04/25 20:00 03/04/25 20:25 Temperature 97.2 F L 97 F L Pulse Rate 100 106 H Respiratory Rate 16 18 Blood Pressure 123/65 100/65 Pulse Oximetry 94 93 Oxygen Delivery Room Air 03/04/25 21:16 03/05/25 05:36 Temperature 97.6 F Pulse Rate 110 H 97 Respiratory Rate 14 Blood Pressure 112/61 Pulse Oximetry 92 Oxygen Delivery Intake/Output Intake/Output: Intake & Output 03/02/25 03/03/25 03/04/25 03/05/25 23:59 23:59 23:59 23:59 Intake Total 2059 1570 1220 100 Balance 2059 1570 1220 100 Meds/Results Medications: Active Medications Generic Name Dose Route Start Last Admin Trade Name Freq PRN Reason Stop Dose Admin Acetaminophen 650 mg 02/27/25 14:36 Acetaminophen 325 Mg Tablet PO Q6H PRN Mild Pain (1-3) or Fever Albuterol 2.5 mg 02/27/25 23:35 Albuterol Sulfate Neb 2.5 Mg/3 Ml Inh INHALATION DAILY PRN Shortness Of Breath Albuterol 2 puff 02/27/25 23:35 Albuterol Sulfate (*Sp) Aerosol 1 Puff INHALATION Q8HRT PRN shortness of breath or wheezing Atorvastatin Calcium 20 mg 02/27/25 23:50 03/04/25 21:16 Atorvastatin 20 Mg Tablet PO 20 mg HS ZEE Administration Cyclobenzaprine HCl 10 mg 02/27/25 23:50 03/04/25 21:16 Cyclobenzaprine Hcl 10 Mg Tablet PO 10 mg HS ZEE Administration Dextrose 12.5 gm 02/27/25 14:34 Dextrose 50% 25 Gm/50 Ml Syringe IV PUSH PRN PRN Hypoglycemia Protocol Diclofenac Sodium 75 mg 02/28/25 08:00 03/04/25 17:18 Diclofenac Sod 75 Mg Tablet.Ec PO 75 mg BIDWM ZEE Administration Enoxaparin Sodium 40 mg 02/28/25 09:00 03/04/25 08:44 Enoxaparin 40 Mg/0.4 Ml Syringe SUB-Q 40 mg DAILY ZEE Administration Ergocalciferol 1,250 mcg 03/01/25 09:00 03/01/25 08:28 Ergocalciferol (Vitamin D2) 1,250 Mcg (50,000 Units) Capsule PO 1,250 mcg SuWe ZEE Administration Famotidine 20 mg 02/28/25 09:00 03/04/25 08:43 Famotidine 20 Mg Tablet PO 20 mg DAILY ZEE Administration Folic Acid 1 mg 02/28/25 09:00 03/04/25 08:43 Folic Acid 1 Mg Tablet PO 1 mg DAILY ZEE Administration Furosemide 40 mg 02/27/25 21:00 03/04/25 21:16 Furosemide Inj 40 Mg/4 Ml Vial IV PUSH 40 mg Q12HR ZEE Administration Gabapentin 300 mg 02/28/25 09:00 03/04/25 17:18 Gabapentin 300 Mg Capsule PO 300 mg TID ZEE Administration Glucagon 1 mg 02/27/25 14:34 Glucagon For Inj 1 Mg Vial IM PRN PRN Hypoglycemia Protocol Glucose 15 gm 02/27/25 14:34 Glucose Oral Gel 15 Gm Of Glucse In 37.5 Gm Tube PO PRN PRN Hypoglycemia Protocol Hydroxychloroquine Sulfate 400 mg 02/27/25 23:50 03/04/25 21:16 Hydroxychloroquine Sulfate 200 Mg Tablet PO 400 mg HS EZE Administration Dextrose 1,000 mls @ 100 mls/hr 02/27/25 14:34 Dextrose 5% 1,000 Ml IVPB PRN PRN Hypoglycemia Protocol Clindamycin Phosphate 600 mg in 50 mls @ 100 mls/hr 03/01/25 18:00 03/05/25 03:07 Clindamycin 600 Mg/D5w 50 Ml IVPB Infused Q8H ZEE Infusion Cefepime HCl 2 gm/ Sodium 50 mls @ 100 mls/hr 03/02/25 18:00 03/05/25 02:30 Chloride IVPB Infused Q8H ZEE Infusion Ibuprofen 600 mg 02/27/25 14:36 03/04/25 08:43 Ibuprofen 600 Mg Tablet PO 600 mg Q6H PRN Administration Pain Rated 4-6 Insulin Aspart 4 - 8 units 02/27/25 17:00 03/04/25 17:18 Insulin Aspart (*Bkc) 100 Units/Ml SUB-Q 4 units TIDWM ZEE Administration Protocol Insulin Glargine 45 units 02/27/25 23:45 03/04/25 21:14 Insulin Glargine (*Bkc) 100 Units/Ml SUB-Q 45 units Q12HR ZEE Administration Lisinopril 40 mg 02/27/25 23:50 03/04/25 21:16 Lisinopril 20 Mg Tablet PO 40 mg HS ZEE Administration Loratadine 10 mg 02/28/25 09:00 03/04/25 08:44 Loratadine 10 Mg Tablet PO 10 mg DAILY ZEE Administration Magnesium Oxide 400 mg 02/28/25 09:00 03/04/25 08:43 Magnesium Oxide 400 Mg Tablet PO 400 mg DAILY ZEE Administration Metoprolol Tartrate 12.5 mg 02/27/25 23:45 03/04/25 21:16 Metoprolol Tartrate 12.5 Mg Tablet PO 12.5 mg Q12HR ZEE Administration Pantoprazole Sodium 40 mg 02/28/25 09:00 03/04/25 08:43 Pantoprazole 40 Mg Tablet PO 40 mg DAILY ZEE Administration Potassium Chloride 10 meq 02/28/25 09:00 03/04/25 08:43 Potassium Chloride 10 Meq Er Tablet PO 10 meq DAILY ZEE Administration Tramadol HCl 50 mg 02/27/25 23:35 02/28/25 12:56 Tramadol Hcl (*Crx) 50 Mg Tablet PO 50 mg Q4H PRN Administration Severe pain 7-10 Venlafaxine HCl 150 mg 02/28/25 09:00 03/04/25 08:44 Venlafaxine Hcl Xr 75 Mg Cap.Er.24h PO 150 mg QAM ZEE Administration Radiology Results: ITS Impressions Chest X-Ray 02/27/25 13:23 IMPRESSION: No acute cardiopulmonary process. Chronic right hemidiaphragm elevation. Venous Doppler Study 02/28/25 09:33 IMPRESSION: 1. No deep venous thrombosis in the right lower limb. Labs Labs: Laboratory Results - last 24 hr 03/04/25 03/04/25 03/04/25 05:10 07:49 12:11 WBC 12.1 H RBC 4.21 Hgb 12.2 Hct 39.2 MCV 93.1 MCH 29.0 MCHC 31.1 L RDW 14.6 H Plt Count 410 H MPV 10.4 Immature Gran % (Auto) 1.3 H Neut % (Auto) 67.7 Lymph % (Auto) 18.1 L [place] % (Auto) 11.4 H Eos % (Auto) 0.8 Baso % (Auto) 0.7 Lymph # (Auto) 2.18 [place] # (Auto) 1.4 H Eos # (Auto) 0.1 Baso # (Auto) 0.1 Abs Immat Gran (auto) 0.16 H Absolute Neuts (auto) 8.2 H Absolute Nucleated RBC 0.000 Nucleated RBC % 0.0 Sodium 132 L Potassium 3.6 Chloride 99 Carbon Dioxide 25 Anion Gap 8 BUN 19 H Creatinine 0.94 Estim Creat Clear Calc 96 Estimated GFR > 60 Glucose 181 H POC Capillary Glucose 164 H 210 H Calcium 8.8 Procalcitonin 0.1 03/04/25 03/04/25 03/05/25 16:51 20:28 04:51 WBC 10.8 H RBC 3.99 L Hgb 11.8 L Hct 36.7 L MCV 92.0 MCH 29.6 MCHC 32.2 RDW 14.2 Plt Count 348 MPV 10.4 Immature Gran % (Auto) 1.9 H Neut % (Auto) 67.0 Lymph % (Auto) 17.1 L [place] % (Auto) 11.6 H Eos % (Auto) 1.4 Baso % (Auto) 1.0 Lymph # (Auto) 1.85 [place] # (Auto) 1.3 H Eos # (Auto) 0.2 Baso # (Auto) 0.1 Abs Immat Gran (auto) 0.21 H Absolute Neuts (auto) 7.3 H Absolute Nucleated RBC 0.000 Nucleated RBC % 0.0 Sodium 128 L Potassium 3.7 Chloride 96 L Carbon Dioxide 28 Anion Gap 4 BUN 21 H Creatinine 1.03 H Estim Creat Clear Calc 88 Estimated GFR 57 L Glucose 164 H POC Capillary Glucose 211 H 210 H Calcium 8.6 Procalcitonin
[2025-03-05] MEDS: METOPROLOL TARTRATE 12.5 MG TABLET PO ×2 (09:04→21:03)
[2025-03-05] MEDS: DICLOFENAC SOD 75 MG TABLET.EC PO ×2 (09:04→17:18)
[2025-03-05] MEDS: FAMOTIDINE 20 MG TABLET PO (09:04)
[2025-03-05] MEDS: LORATADINE 10 MG TABLET PO (09:04)
[2025-03-05] MEDS: MAGNESIUM OXIDE 400 MG TABLET PO (09:04)
[2025-03-05] MEDS: FOLIC ACID 1 MG TABLET PO (09:04)
[2025-03-05] MEDS: GABAPENTIN 300 MG CAPSULE PO ×3 (09:04→17:18)
[2025-03-05] MEDS: PANTOPRAZOLE 40 MG TABLET PO (09:04)
[2025-03-05] MEDS: ENOXAPARIN 40 MG/0.4 ML SYRINGE SUB-Q (09:05)
[2025-03-05] MEDS: POTASSIUM CHLORIDE 10 MEQ ER TABLET PO (09:05)
[2025-03-05] MEDS: VENLAFAXINE HCL XR 75 MG CAP.ER.24H 150 MG PO (09:05)
[2025-03-05] MEDS: INSULIN GLARGINE (*BKC) 100 UNITS/ML 45 UNITS SUB-Q ×2 (09:06→21:04)
[2025-03-05] MEDS: ERGOCALCIFEROL (VITAMIN D2) 1,250 MCG (50,000 UNITS) CAPSULE 1250 MCG PO (09:12)
[2025-03-05] MEDS: INSULIN ASPART (*BKC) 100 UNITS/ML SUB-Q ×2 (12:12→17:18)
[2025-03-05] MEDS: CYCLOBENZAPRINE HCL 10 MG TABLET PO (21:03)
[2025-03-05] MEDS: HYDROXYCHLOROQUINE SULFATE 200 MG TABLET 400 MG PO (21:04)
[2025-03-05] MEDS: ATORVASTATIN 20 MG TABLET PO (21:04)
[2025-03-05] MEDS: ACETAMINOPHEN 325 MG TABLET 650 MG PO (21:14)
[2025-03-06] MEDS: CEFEPIME 2 GM in SODIUM CHLORIDE 0.9% IV 50 ML 100 ML IVPB ×3 (01:50→17:14)
[2025-03-06] MEDS: SODIUM CHLORIDE 0.9% IV 50 ML 100 ML (02:33)
[2025-03-06] MEDS: CLINDAMYCIN 600 MG/D5W 50 ML 600 MG/50 ML PIGGYBACK 100 MG IVPB ×3 (02:34→17:57)
[2025-03-06 04:35] VITALS: BP 131/68; PULSE 91; RESP 20; TEMP 36.1; O2SAT 94
[2025-03-06 05:19] LABS: Hematocrit 35.2 % (37.0-47.0); Hemoglobin 11.4 g/dL (12.0-15.0); Immature Granulocyte Percent A 1.4 % (0-0.5); Lymphocytes Absolute Auto 1.74 K/mm3 (0.9-3.2); Mean Corpuscular HGB Conc 32.4 g/dl (32-36); Mean Corpuscular Hemoglobin 29.6 pg (26-34); Mean Corpuscular Volume 91.4 fl (80-100); Nucleated Red Blood Cells Absolute Auto 0.000 K/mm3 (0.0-0.012); Nucleated Red Blood Cells Perc 0.0 % (0.0-0.2); Platelet Count Result 325 k/mm3 (150-375); Red Blood Count 3.85 M/mm3 (4.2-5.4); White Blood Count 9.5 K/mm3 (4.5-10.0)
[2025-03-06 05:58] LABS: Anion Gap 5 mmol/L (4-12); Blood Urea Nitrogen 23 mg/dL (7-17); Calcium 8.8 mg/dL (8.4-10.2); Carbon Dioxide 26 mmol/L (22-30); Chloride 101 mmol/L (98-107); Estimated CRCL calculation 82 ml/min; Estimated Glomerular Filt Rate 52; Glucose 195 mg/dL (65-110); Magnesium 2.1 mg/dL (1.6-2.3); Potassium 3.8 mmol/L (3.4-5.0); Sodium 132 mmol/L (137-145)
[2025-03-06] MEDS: FOLIC ACID 1 MG TABLET PO (08:37)
[2025-03-06] MEDS: FAMOTIDINE 20 MG TABLET PO (08:37)
[2025-03-06] MEDS: GABAPENTIN 300 MG CAPSULE PO ×3 (08:37→17:14)
[2025-03-06] MEDS: DICLOFENAC SOD 75 MG TABLET.EC PO ×2 (08:37→17:14)
[2025-03-06 08:38] VITALS: PULSE 91
[2025-03-06] MEDS: LORATADINE 10 MG TABLET PO (08:38)
[2025-03-06] MEDS: MAGNESIUM OXIDE 400 MG TABLET PO (08:38)
[2025-03-06] MEDS: VENLAFAXINE HCL XR 75 MG CAP.ER.24H 150 MG PO (08:38)
[2025-03-06] MEDS: PANTOPRAZOLE 40 MG TABLET PO (08:38)
[2025-03-06] MEDS: METOPROLOL TARTRATE 12.5 MG TABLET PO ×2 (08:38→20:42)
[2025-03-06] MEDS: POTASSIUM CHLORIDE 10 MEQ ER TABLET PO (08:38)
[2025-03-06] MEDS: ENOXAPARIN 40 MG/0.4 ML SYRINGE SUB-Q (08:38)
[2025-03-06] MEDS: INSULIN GLARGINE (*BKC) 100 UNITS/ML 45 UNITS SUB-Q ×2 (08:39→20:41)
--- NOTE | 2025-03-06 10:43 | PCNWS ---
Weekly nutritional screen. Patient is tolerating current diet with adequate intake. No weight loss reported. No nutritional needs at this time.
[2025-03-06] MEDS: IBUPROFEN 600 MG TABLET PO (10:54)
[2025-03-06] MEDS: INSULIN ASPART (*BKC) 100 UNITS/ML SUB-Q ×2 (12:06→17:15)
--- NOTE | 2025-03-06 12:33 | PM.IMPN ---
Progress Note: A&P Assessment and Plan (1) Hypertension: Qualifiers: Hypertension type: unspecified Qualified Code(s): I10 - Essential (primary) hypertension Code(s): I10 - Essential (primary) hypertension Status: Chronic (2) Diabetes mellitus, insulin dependent (IDDM), uncontrolled: Status: Acute (3) Cellulitis: Qualifiers: Laterality: right Site of cellulitis: extremity Site of cellulitis of extremity: lower extremity Qualified Code(s): L03.115 - Cellulitis of right lower limb Code(s): L03.90 - Cellulitis, unspecified Status: Acute (4) Vasculitis: Code(s): I77.6 - Arteritis, unspecified Status: Chronic (5) JEREMY on CPAP: Code(s): G47.33 - Obstructive sleep apnea (adult) (pediatric) Status: Chronic Plan 49-year-old female with history of insulin-dependent diabetes mellitus, hypertension, JEREMY on CPAP, hypercholesterolemia, vasculitis, autoimmune disorder, presents to [facility] on 02/07/2025 with worsening bilateral lower extremity edema. The patient was tapering her prednisone down which is when the redness started. She thought the redness was improving after the prednisone was increased again on this admission. However, on 03/01/2025 the prednisone was actually discontinued. There is no documentation or attention as to why this was discontinued. Around the same time her antibiotics were increased to clindamycin and cefepime. At this point we will continue the current regimen since the patient believes her infection is improved. The leukocytosis has been improving since the discontinuation of prednisone. Blood cultures from 02/27/2025 no growth final. 03/05/2025: Patient reports feeling dizzy. She was placed on Lasix 40 mg IV b.i.d. since admission which were continued throughout. She appeared clinically dry. Discontinue Lasix. Check orthostatic vital signs. 03/06/2025: Bump in serum creatinine. Orthostatic blood pressures nearly positive. Start lactated Ringer's at 100 cc an trend renal function. Continue cefepime and vancomycin. Today there has been no change in the erythema, the patient show me pictures of the infection prior to cefepime being added and it was much worse so we will continue current regimen. Patient wishes to be full code. Lovenox 40 mg subQ q.day. continue current insulin regimen. Blood sugars at goal. Diabetic consistent diet. Ambulate with assistance. Subjective Date/time seen: 03/06/25 12:33 Interval history: She reports her swelling and erythema of the same. Still feels a bit dizzy standing up Review of Systems Review of Systems: All systems reviewed & are unremarkable except as noted in HPI and below (Subjective) Exam Const: General: comfortable and no acute distress HENMT: Mouth: Yes moist mucous membranes Eyes: Pupils: Equal, round and reactive pupils present Neck: Neck: supple Resp: Effort & Inspection: normal respiratory effort Auscultation: clear to auscultation bilaterally Cardio: Rate: regular rate Rhythm: regular rhythm GI: Inspection: non-distended GI Palp: Yes Soft to palpation Skin: Other: Erythema unchanged Extrem: General: no edema Objective Data Vital Signs Vital Signs: Vital Signs - 24 hr 03/05/25 14:00 03/05/25 14:04 03/05/25 14:06 Temperature Pulse Rate 104 H Respiratory Rate 18 Blood Pressure 125/81 101/67 108/70 Pulse Oximetry 98 Oxygen Delivery Fraction of Inspired Oxygen 03/05/25 14:06 03/05/25 20:00 03/05/25 21:03 Temperature Pulse Rate 102 H 109 H Respiratory Rate 20 Blood Pressure 108/70 Pulse Oximetry 98 Oxygen Delivery Room Air Fraction of Inspired Oxygen 21 03/05/25 21:15 03/06/25 04:35 03/06/25 08:30 Temperature 97.3 F L 96.9 F L Pulse Rate 109 H 91 Respiratory Rate 16 20 Blood Pressure 130/80 131/68 Pulse Oximetry 98 94 Oxygen Delivery Room Air Fraction of Inspired Oxygen 03/06/25 08:38 Temperature Pulse Rate 91 Respiratory Rate Blood Pressure Pulse Oximetry Oxygen Delivery Fraction of Inspired Oxygen Intake/Output Intake/Output: Intake & Output 03/03/25 03/04/25 03/05/25 03/06/25 23:59 23:59 23:59 23:59 Intake Total 1570 1220 900 690 Balance 1570 1220 900 690 Meds/Results Medications: Active Medications Generic Name Dose Route Start Last Admin Trade Name Freq PRN Reason Stop Dose Admin Acetaminophen 650 mg 02/27/25 14:36 03/05/25 21:14 Acetaminophen 325 Mg Tablet PO 650 mg Q6H PRN Administration Mild Pain (1-3) or Fever Albuterol 2.5 mg 02/27/25 23:35 Albuterol Sulfate Neb 2.5 Mg/3 Ml Inh INHALATION DAILY PRN Shortness Of Breath Albuterol 2 puff 02/27/25 23:35 Albuterol Sulfate (*Sp) Aerosol 1 Puff INHALATION Q8HRT PRN shortness of breath or wheezing Atorvastatin Calcium 20 mg 02/27/25 23:50 03/05/25 21:04 Atorvastatin 20 Mg Tablet PO 20 mg HS ZEE Administration Cyclobenzaprine HCl 10 mg 02/27/25 23:50 03/05/25 21:03 Cyclobenzaprine Hcl 10 Mg Tablet PO 10 mg HS ZEE Administration Dextrose 12.5 gm 02/27/25 14:34 Dextrose 50% 25 Gm/50 Ml Syringe IV PUSH PRN PRN Hypoglycemia Protocol Diclofenac Sodium 75 mg 02/28/25 08:00 03/06/25 08:37 Diclofenac Sod 75 Mg Tablet.Ec PO 75 mg BIDWM ZEE Administration Enoxaparin Sodium 40 mg 02/28/25 09:00 03/06/25 08:38 Enoxaparin 40 Mg/0.4 Ml Syringe SUB-Q 40 mg DAILY ZEE Administration Ergocalciferol 1,250 mcg 03/01/25 09:00 03/05/25 09:12 Ergocalciferol (Vitamin D2) 1,250 Mcg (50,000 Units) Capsule PO 1,250 mcg SuWe ZEE Administration Famotidine 20 mg 02/28/25 09:00 03/06/25 08:37 Famotidine 20 Mg Tablet PO 20 mg DAILY ZEE Administration Folic Acid 1 mg 02/28/25 09:00 03/06/25 08:37 Folic Acid 1 Mg Tablet PO 1 mg DAILY ZEE Administration Furosemide 40 mg 02/27/25 21:00 03/04/25 21:16 Furosemide Inj 40 Mg/4 Ml Vial IV PUSH 40 mg Q12HR ZEE Administration Gabapentin 300 mg 02/28/25 09:00 03/06/25 12:06 Gabapentin 300 Mg Capsule PO 300 mg TID ZEE Administration Glucagon 1 mg 02/27/25 14:34 Glucagon For Inj 1 Mg Vial IM PRN PRN Hypoglycemia Protocol Glucose 15 gm 02/27/25 14:34 Glucose Oral Gel 15 Gm Of Glucse In 37.5 Gm Tube PO PRN PRN Hypoglycemia Protocol Hydroxychloroquine Sulfate 400 mg 02/27/25 23:50 03/05/25 21:04 Hydroxychloroquine Sulfate 200 Mg Tablet PO 400 mg HS ZEE Administration Dextrose 1,000 mls @ 100 mls/hr 02/27/25 14:34 Dextrose 5% 1,000 Ml IVPB PRN PRN Hypoglycemia Protocol Clindamycin Phosphate 600 mg in 50 mls @ 100 mls/hr 03/01/25 18:00 03/06/25 10:02 Clindamycin 600 Mg/D5w 50 Ml IVPB 100 mls/hr Q8H ZEE Administration Cefepime HCl 2 gm/ Sodium 50 mls @ 100 mls/hr 03/02/25 18:00 03/06/25 09:35 Chloride IVPB 100 mls/hr Q8H ZEE Administration Ibuprofen 600 mg 02/27/25 14:36 03/06/25 10:54 Ibuprofen 600 Mg Tablet PO 600 mg Q6H PRN Administration Pain Rated 4-6 Insulin Aspart 4 - 8 units 02/27/25 17:00 03/06/25 12:06 Insulin Aspart (*Bkc) 100 Units/Ml SUB-Q 4 units TIDWM ZEE Administration Protocol Insulin Glargine 45 units 02/27/25 23:45 03/06/25 08:39 Insulin Glargine (*Bkc) 100 Units/Ml SUB-Q 45 units Q12HR ZEE Administration Lisinopril 40 mg 02/27/25 23:50 03/05/25 21:02 Lisinopril 20 Mg Tablet PO 40 mg HS ZEE Administration Loratadine 10 mg 02/28/25 09:00 03/06/25 08:38 Loratadine 10 Mg Tablet PO 10 mg DAILY ZEE Administration Magnesium Oxide 400 mg 02/28/25 09:00 03/06/25 08:38 Magnesium Oxide 400 Mg Tablet PO 400 mg DAILY ZEE Administration Metoprolol Tartrate 12.5 mg 02/27/25 23:45 03/06/25 08:38 Metoprolol Tartrate 12.5 Mg Tablet PO 12.5 mg Q12HR ZEE Administration Pantoprazole Sodium 40 mg 02/28/25 09:00 03/06/25 08:38 Pantoprazole 40 Mg Tablet PO 40 mg DAILY ZEE Administration Potassium Chloride 10 meq 02/28/25 09:00 03/06/25 08:38 Potassium Chloride 10 Meq Er Tablet PO 10 meq DAILY ZEE Administration Tramadol HCl 50 mg 02/27/25 23:35 02/28/25 12:56 Tramadol Hcl (*Crx) 50 Mg Tablet PO 50 mg Q4H PRN Administration Severe pain 7-10 Venlafaxine HCl 150 mg 02/28/25 09:00 03/06/25 08:38 Venlafaxine Hcl Xr 75 Mg Cap.Er.24h PO 150 mg QAM ZEE Administration Radiology Results: ITS Impressions Chest X-Ray 02/27/25 13:23 IMPRESSION: No acute cardiopulmonary process. Chronic right hemidiaphragm elevation. Venous Doppler Study 02/28/25 09:33 IMPRESSION: 1. No deep venous thrombosis in the right lower limb. Labs Labs: Laboratory Results - last 24 hr 03/05/25 03/05/25 03/06/25 17:05 20:00 04:34 WBC 9.5 RBC 3.85 L Hgb 11.4 L Hct 35.2 L MCV 91.4 MCH 29.6 MCHC 32.4 RDW 14.3 Plt Count 325 MPV 10.7 H Immature Gran % (Auto) 1.4 H Neut % (Auto) 64.5 Lymph % (Auto) 18.3 [place] % (Auto) 13.3 H Eos % (Auto) 1.7 Baso % (Auto) 0.8 Lymph # (Auto) 1.74 [place] # (Auto) 1.3 H Eos # (Auto) 0.2 Baso # (Auto) 0.1 Abs Immat Gran (auto) 0.13 H Absolute Neuts (auto) 6.1 Absolute Nucleated RBC 0.000 Nucleated RBC % 0.0 Sodium 132 L Potassium 3.8 Chloride 101 Carbon Dioxide 26 Anion Gap 5 BUN 23 H Creatinine 1.11 H Estim Creat Clear Calc 82 Estimated GFR 52 L Glucose 195 H POC Capillary Glucose 231 H 266 H Calcium 8.8 Magnesium 2.1 03/06/25 03/06/25 07:46 11:45 WBC RBC Hgb Hct MCV MCH MCHC RDW Plt Count MPV Immature Gran % (Auto) Neut % (Auto) Lymph % (Auto) [place] % (Auto) Eos % (Auto) Baso % (Auto) Lymph # (Auto) [place] # (Auto) Eos # (Auto) Baso # (Auto) Abs Immat Gran (auto) Absolute Neuts (auto) Absolute Nucleated RBC Nucleated RBC % Sodium Potassium Chloride Carbon Dioxide Anion Gap BUN Creatinine Estim Creat Clear Calc Estimated GFR Glucose POC Capillary Glucose 180 H 242 H Calcium Magnesium
[2025-03-06 14:00] VITALS: BP 124/68; PULSE 102; RESP 16; TEMP 36.7; O2SAT 97
[2025-03-06] MEDS: LACTATED RINGERS 1,000 ML 100 ML IV CONT (14:41)
[2025-03-06 20:42] VITALS: PULSE 107
[2025-03-06] MEDS: HYDROXYCHLOROQUINE SULFATE 200 MG TABLET 400 MG PO (20:42)
[2025-03-06] MEDS: CYCLOBENZAPRINE HCL 10 MG TABLET PO (20:42)
[2025-03-06] MEDS: ATORVASTATIN 20 MG TABLET PO (20:42)
[2025-03-06 21:36] VITALS: BP 144/83; PULSE 109; RESP 18; TEMP 36.4; O2SAT 99
[2025-03-06 23:10] VITALS: PULSE 108; O2SAT 99
[2025-03-07] MEDS: CEFEPIME 2 GM in SODIUM CHLORIDE 0.9% IV 50 ML 100 ML IVPB ×2 (01:07→10:26)
[2025-03-07] MEDS: CLINDAMYCIN 600 MG/D5W 50 ML 600 MG/50 ML PIGGYBACK 100 MG IVPB ×2 (01:42→09:52)
[2025-03-07 02:22] VITALS: O2SAT 99
[2025-03-07] MEDS: LACTATED RINGERS 1,000 ML 100 ML IV CONT (03:35)
[2025-03-07 05:13] LABS: Hematocrit 35.7 % (37.0-47.0); Hemoglobin 11.4 g/dL (12.0-15.0); Immature Granulocyte Percent A 1.2 % (0-0.5); Lymphocytes Absolute Auto 1.44 K/mm3 (0.9-3.2); Mean Corpuscular HGB Conc 31.9 g/dl (32-36); Mean Corpuscular Hemoglobin 29.3 pg (26-34); Mean Corpuscular Volume 91.8 fl (80-100); Nucleated Red Blood Cells Absolute Auto 0.000 K/mm3 (0.0-0.012); Nucleated Red Blood Cells Perc 0.0 % (0.0-0.2); Platelet Count Result 338 k/mm3 (150-375); Red Blood Count 3.89 M/mm3 (4.2-5.4); White Blood Count 8.8 K/mm3 (4.5-10.0)
[2025-03-07 05:44] LABS: Anion Gap 3 mmol/L (4-12); Blood Urea Nitrogen 17 mg/dL (7-17); Calcium 9.1 mg/dL (8.4-10.2); Carbon Dioxide 28 mmol/L (22-30); Chloride 99 mmol/L (98-107); Estimated CRCL calculation 95 ml/min; Estimated Glomerular Filt Rate > 60; Glucose 222 mg/dL (65-110); Magnesium 2.1 mg/dL (1.6-2.3); Potassium 4.5 mmol/L (3.4-5.0); Sodium 130 mmol/L (137-145)
[2025-03-07 06:00] VITALS: BP 107/61; PULSE 96; RESP 20; TEMP 36.3; O2SAT 98
[2025-03-07] MEDS: DICLOFENAC SOD 75 MG TABLET.EC PO (08:39)
[2025-03-07 08:40] VITALS: PULSE 96
[2025-03-07] MEDS: LORATADINE 10 MG TABLET PO (08:40)
[2025-03-07] MEDS: ENOXAPARIN 40 MG/0.4 ML SYRINGE SUB-Q (08:40)
[2025-03-07] MEDS: VENLAFAXINE HCL XR 75 MG CAP.ER.24H 150 MG PO (08:40)
[2025-03-07] MEDS: FAMOTIDINE 20 MG TABLET PO (08:40)
[2025-03-07] MEDS: FOLIC ACID 1 MG TABLET PO (08:40)
[2025-03-07] MEDS: INSULIN GLARGINE (*BKC) 100 UNITS/ML 45 UNITS SUB-Q (08:40)
[2025-03-07] MEDS: PANTOPRAZOLE 40 MG TABLET PO (08:40)
[2025-03-07] MEDS: POTASSIUM CHLORIDE 10 MEQ ER TABLET PO (08:40)
[2025-03-07] MEDS: GABAPENTIN 300 MG CAPSULE PO ×2 (08:40→12:30)
[2025-03-07] MEDS: METOPROLOL TARTRATE 12.5 MG TABLET PO (08:40)
[2025-03-07] MEDS: MAGNESIUM OXIDE 400 MG TABLET PO (08:40)
[2025-03-07] MEDS: INSULIN ASPART (*BKC) 100 UNITS/ML SUB-Q (12:30)
--- NOTE | 2025-03-07 13:12 | PM.DS ---
DS: Admitting Diagnosis Discharge Date 03/07/2025 Admitting Diagnosis cellulitis DS: Discharge Diagnosis Discharge Diagnosis (1) Hypertension: Qualifiers: Hypertension type: unspecified Qualified Code(s): I10 - Essential (primary) hypertension Code(s): I10 - Essential (primary) hypertension Status: Chronic (2) Cellulitis: Qualifiers: Laterality: right Site of cellulitis: extremity Site of cellulitis of extremity: lower extremity Qualified Code(s): L03.115 - Cellulitis of right lower limb Code(s): L03.90 - Cellulitis, unspecified Status: Acute DS: Summary Hospital Course Hospital Course: presents with right lower extremity redness more than usual and bilateral swelling. She received Lasix in the swelling improved but had a kidney injury. Kidney injury resolved with fluid resuscitation. Patient is to follow-up with her PCP. She has chronic venous stasis and had a acute on chronic venous stasis episode. She received antibiotics cefepime and clindamycin with improvement of the redness, there was some superimposed bacterial infection but not much. She is discharged on doxycycline which he took before. Is an appointment tomorrow with her bilingual teacher assistant and advised her to keep that so they can re-evaluate her dermatitis. Patient was amenable to this plan. She reports her redness is back to her baseline. Time Spent with Patient Time attestation: Total time spent providing and/or coordinating discharge services: Exam Const: General: comfortable and no acute distress HENMT: Mouth: Yes moist mucous membranes Eyes: Pupils: Equal, round and reactive pupils present Neck: Neck: supple Resp: Effort & Inspection: normal respiratory effort Cardio: Rate: regular rate Rhythm: regular rhythm GI: Inspection: non-distended GI Palp: Yes Soft to palpation Neuro: Motor exam (neuro): 5/5 motor strength present throughout Extrem: General: edema ( 1+ pitting edema bilateral lower extremities below the knees. ) Other: erythema of the right lower extremity distal to the knee. No tenderness to palpation, no active drainage. No increased warmth to touch compared to the left lower extremity. DS: Data Data Completed and Pending Labs on day of discharge: Labs from last 24 hours 03/07/25 03/07/25 03/07/25 11:43 07:33 04:42 WBC 8.8 RBC 3.89 L Hgb 11.4 L Hct 35.7 L MCV 91.8 MCH 29.3 MCHC 31.9 L RDW 14.6 H Plt Count 338 MPV 10.8 H Immature Gran % (Auto) 1.2 H Neut % (Auto) 66.9 Lymph % (Auto) 16.3 L [place] % (Auto) 12.9 H Eos % (Auto) 1.9 Baso % (Auto) 0.8 Lymph # (Auto) 1.44 [place] # (Auto) 1.1 H Eos # (Auto) 0.2 Baso # (Auto) 0.1 Abs Immat Gran (auto) 0.11 H Absolute Neuts (auto) 5.9 Absolute Nucleated RBC 0.000 Nucleated RBC % 0.0 Sodium 130 L Potassium 4.5 Chloride 99 Carbon Dioxide 28 Anion Gap 3 L BUN 17 Creatinine 0.95 Estim Creat Clear Calc 95 Estimated GFR > 60 Glucose 222 H POC Capillary Glucose 219 H 188 H Calcium 9.1 Magnesium 2.1 03/06/25 03/06/25 20:17 17:03 WBC RBC Hgb Hct MCV MCH MCHC RDW Plt Count MPV Immature Gran % (Auto) Neut % (Auto) Lymph % (Auto) [place] % (Auto) Eos % (Auto) Baso % (Auto) Lymph # (Auto) [place] # (Auto) Eos # (Auto) Baso # (Auto) Abs Immat Gran (auto) Absolute Neuts (auto) Absolute Nucleated RBC Nucleated RBC % Sodium Potassium Chloride Carbon Dioxide Anion Gap BUN Creatinine Estim Creat Clear Calc Estimated GFR Glucose POC Capillary Glucose 233 H 209 H Calcium Magnesium Discharge Plan Discharge Attending physician on discharge: Madiha Masters Consulting providers: Jesusita Santiago Discharging Clinician: Madiha Masters Patient Disposition: Home Activity: december shower Diet: as tolerated Patient Instructions: Antibiotic Form Patient Language: Bhutanese Stand Alone Forms: General Discharge Information Follow-up/Referrals: Michael,Lynn [Other] Discharge Medications: Continued atorvastatin 20 mg tablet 20 mg PO HS loratadine [Claritin] 10 mg Tablet 10 mg PO DAILY venlafaxine 150 mg capsule,extended release 24hr 150 mg PO QAM Lyumjev KwikPen U-100 Insulin 100 unit/mL insulin pen 1 sliding scale dose SUBCUT AC Rx Instructions: For blood sugar of 150 or less administer 18 units for blood sugar per 25 points greater than 150 administer 1 unit per 25 over Mounjaro 5 mg/0.5 mL pen injector 10 mg SUBCUT WEEKLY Patient Comments: on Saturdays tramadol 50 mg Tablet 50 mg PO Q4H PRN (Reason: Severe pain) Qty: 15 0RF metoprolol tartrate 25 mg tablet 12.5 mg PO BID 30 Days Qty: 30 0RF famotidine 20 mg tablet 20 mg PO DAILY Qty: 30 0RF ondansetron 4 mg tablet,disintegrating 4 mg PO Q8H PRN (Reason: nausea and vomiting) Qty: 14 0RF albuterol sulfate 2.5 mg /3 mL (0.083 %) solution for nebulization 2.5 mg inhalation DAILY PRN (Reason: Shortness Of Breath) cetirizine [All Day Allergy (cetirizine)] 10 mg Tablet 10 mg PO DAILY ergocalciferol (vitamin D2) 50,000 unit PO .COMPLEX Patient Comments: Patient takes on Wednesdays and Sundays Rx Instructions: 50,000 units orally twice a week; prednisone 20 mg tablet 40 mg PO DAILY@0800 cyclobenzaprine 10 mg tablet 10 mg PO HS Patient Comments: patient takes in the evening lisinopril 20 mg tablet 40 mg PO HS folic acid 1 mg tablet 1 mg PO DAILY hydroxychloroquine 200 mg tablet 400 mg PO HS insulin glargine [Lantus Solostar U-100 Insulin] 100 unit/mL (3 mL) insulin pen 45 unit SUBCUT BID Patient Comments: in the morning and evening pantoprazole 40 mg tablet,delayed release (DR/EC) 40 mg PO DAILY magnesium 200 mg tablet 400 mg PO DAILY potassium 99 mg tablet 99 mg PO DAILY famotidine [Acid Controller] 20 mg tablet 20 mg PO HS acetaminophen 500 mg Tablet 1,000 mg PO BID albuterol sulfate 90 mcg/actuation HFA aerosol inhaler 2 puff INHALATION Q8H PRN (Reason: shortness of breath or wheezing) gabapentin 300 mg capsule 300 mg PO TID Discontinued montelukast 10 mg tablet 10 mg PO HS dicyclomine 20 mg tablet 20 mg PO TID PRN (Reason: abdominal pain) Qty: 30 0RF methotrexate sodium 2.5 mg tablet 12.5 mg PO WEEKLY Rx Instructions: on diclofenac sodium 75 mg tablet,delayed release (DR/EC) 75 mg PO BID Diurex 162.5-50 mg tablet 1 tablet PO DAILY prochlorperazine maleate [Compazine] 5 mg tablet 5 mg PO Q8H PRN (Reason: Headache) 1 Days Qty: 10 0RF Date of admission: 03/01/25 16:17 Primary Care Provider: Michael,Lynn Admitting Provider: Marietta Desouza Attending physician on admission: Marietta Desouza Condition: Stable Hospitalist MIPS Heart Failure (Exclusion) Patient has history of Heart Transplant or Left Ventricular Assistive Device?: No IF YES, STOP HERE Heart Failure (Qualifier) Patient has current or prior documentation of LVEF less than or equal to 40%, or mod/servere depressed LVSF?: No IF NO, STOP HERE
== END 2025-03-07 13:50 | disposition home or self-care (01) | DRG 603 ==
LOC: ANHED 13:08 → ANH2MED 13:28
PROVIDERS: Hospitalist; Nurse Practitioner Adult Health; Student in an Organized Health Care Education/Training Program; Admitting Provider Family Medicine; Emergency Provider Emergency Medicine; Visit Provider General Practice
DX: L03.115 Cellulitis of right lower limb (principal); D84.9 Immunodeficiency, unspecified; I77.6 Arteritis, unspecified; I87.8 Other specified disorders of veins; I10 Essential (primary) hypertension; E78.00 Pure hypercholesterolemia, unspecified; G47.33 Obstructive sleep apnea (adult) (pediatric); F32.A Depression, unspecified; Z79.4 Long term (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
CPT/HCPCS: 36415; 71045; 80048; 80053; 82948; 83036; 83735; 83880; 84132; 84145; 85025; 85027; 85610; 85730; 86140; 87040; 93971; 96365; 96375; 99212; 99285; A9270; G0378; G0463; J0690; J0692; J1650; J1815; J1938; J7120; J7512

== ENCOUNTER 2025-05-24 08:10 | Inpatient (IN) | payer OTHER, SELFPAY ==
--- OUTSIDE RECORDS SUMMARY | 2025-05-22 11:39 | XMS_ITS | Encounter Summary ---
Author Organization [facility] Healthcare Address [address] [place] [address] Care Team Providers Care Security Systems Sales Representative Name Role Phone Ann Serrano MD Unavailable [phone] Lynn Rodriguez MD Primary Care Provider Reason for Referral * Diagnostic Imaging (Routine) - Closed Specialty Diagnoses / Procedures Referred By Feliz t Referred To Contact Diagnoses Spinal stenosis of lumbar region with neurogenic claudication Procedures Imaging Lumbar/Sacral Selective Nerve Root INJ (TFE) Right (28443) Amada Baldwin NP [id number] [place] [address] Phone: tel: fax: [place] [address] Phone: tel: fax: Referral ID Status Reason Start Date Expiration Date Visits Re quested Visits Authorized [id number] Closed 03/23/2025 04/22/2026 1 1 Reason for Visit * Diagnostic Imaging (Routine) - Closed Specialty Diagnoses / Procedures Referred By Contac t Referred To Contact Diagnoses Spinal stenosis of lumbar region with neurogenic claudication Procedures Imaging Lumbar/Sacral Selective Nerve Root INJ (TFE) Right ([id number]) [place] [address] [place] [address] Phone: tel: fax: [facility] [id number] [place] [address] Phone: tel: fax: Referral ID Status Reason Start Date Expiration Date Visits Re quested Visits Authorized [id number] Closed 03/23/2025 04/22/2026 1 1 Encounter Details Date Type Department Care Team (Late st Contact Info) Description 05/22/2025 11:39 AM CDT - 05/22/2025 11:59 PM CDT Hospital Encounter [facility] [id number] [place] [id number] [place] [address] [facility] [address] [place] [address] Radiculopathy, lumbosacral region [M54.17] (Primary Dx); Spinal stenosis of lumbar region with neurogenic claudication Discharge Disposition: Discharge to home or self care Social History Tobacco Use Types Packs/Day Years [...] making you feel afraid or unsafe? Denies 03/20/2025 Comments No Sex and Gender Information Value Date Recorded Sex Assigned at Not on file Legal Sex Female 11:54 PM PRESS SECRETARY Gender Identity Female 09/19/2020 8:37 AM PRESS SECRETARY Sexual Orientation Straight 09/19/2020 8: 37 AM PRESS SECRETARY documented as of this encounter Last Filed Vital Signs Vital Sign Reading Time Taken Comments Blood Pressure 124/77 05/22/2025 12:55 PM CDT Pulse 110 05/22/2025 12:55 PM CDT Temperature 36.2 C (97.2 F) 05/22/2025 12:18 PM CDT Respiratory Rate 16 05/22/2025 12:55 PM CDT Oxygen Saturation 98% 05/22/2025 12:55 PM CDT Inhaled Oxygen Concentration - - Weight - - Height - - Body Mass Index - - documented in this encounter Discharge Instructions * Discharge Instructions* Janet Lee RN - 05/22/2025 12:30 PM CDT Transforaminal epidural Initially you may notice some relief from the lidocaine. You then may notice a slight increase in pain after the procedure. This should start to improve within the next 24-48 hours. It may take as long as 72 hours before the steroid kicks in and you notice a gradual improvement inyour pain/symptoms. If you are taking pain medications you may continue to take them. You may restart your medications the day after the procedure. If you are going to physical therapy continue to do so. You may not drive until numbness wear off. If you experience pain at the injection site, you may apply ice to the affected area for area for 20 minutes every 2 hours. No heat to the injection site for 24 hours. No tub bath or soaking in water(pools/jacuzzi, etc.) for 24 hours. If you develop ANY other symptoms, such as severe pain, headache, visual changes, new numbness or weakness any where on your body, loss of control of your bowels or bladder, or have signs of infection (temperature of 100.4 or greater, drainage at the injection site) Call the Pain Management Center i mmediately at [phone]. After hours, contact the [facility] Programmer at [phone] and she will reach your physician for you. In case of emergency call 911 Pay attention to how pain changes, even today, this helps with the diagnosis Watch for leg numbness and weakness documented in this encounter Medications at Time of Discharge acetaminophen (TYLENOL) 500 mg tablet Take 1 tablet (500 mg total) by mouth every 6 (six) hours as needed albuterol 2.5 mg /3 mL (0.083 %) nebulizer solution USE 1 VIAL VIA NEBULIZER EVERY 6 HOURS NEEDED FOR WHEEZING ([employer] RECOMMENDS NOT EXCEEDING 4 VIALS/DAY) 600 mL 6 5 albuterol HFA (PROVENTIL HFA,VENTOLIN HFA,PROAIR HFA) 90 mcg/actuation inhaler USE 2 INHALATIONS BY MOUTH EVERY 4 HOURS NEEDED FOR WHEEZING OR SHORTNESS OF BREATH 51 g 3 5 atorvastatin (LIPITOR) 40 mg tabletIndications:U ncontrolled type 2 diabetes mellitus with hyperglycemia (HCC),Mixed hyperlipidemia Take 1 tablet (40 mg total) by mouth daily 90 tablet 3 5 01/10/20 26 Baqsimi 3 mg/actuation spray,non-aerosolIn dications:Uncontrol led type 2 diabetes mellitus with hyperglycemia (HCC) INSERT DEVICE TIP INTO 1 NOSTRIL PUSH DEVICE PLUNGER UNTIL GREEN LINE DISAPPEARS. NEEDED IN CASE OF EMERGENCY LOW BLOOD SUGARS. 1 each 3 5 benzonatate (TESSALON) 200 mg capsuleIndications: Acute cough Take 1 capsule (200 mg total) by mouth every 8 (eight) hours as needed for cough 20 capsule 5 blood glucose diagnostic stripIndications:Un controlled type 2 diabetes mellitus with hyperglycemia (HCC) Use to check blood sugar as directed up to 4 times dialy. 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 Change sensor every 10 days. 9 each 3 4 budesonide-formoter oL (SYMBICORT) 160-4.5 mcg/actuation inhaler Inhale 2 puffs 2 (two) times a day Rinse mouth with water after use. Do not swallow. 1 each 11 5 buprenorphine (Belbuca) 150 mcg film buccal filmIndications:Chr onic right-sided low back pain with right-sided sciatica,Sacroiliit is,Radiculopathy, lumbosacral region Apply 1 each (150 mcg total) to cheek 2 (two) times a day 60 each 5 cyclobenzaprine (FLEXERIL) 10 mg tablet Take 1 tablet (10 mg total) by mouth nightly as needed for muscle spasms 30 tablet [address] (VOLTAREN) 75 mg EC tablet TAKE 1 TABLET BY MOUTH TWICE DAILY 180 tablet 3 5 dicyclomine (BENTYL) 20 mg tablet Take 1 tablet (20 mg total) by mouth 3 (three) times a day as needed 5 famotidine (PEPCID) 20 mg tablet Take 1 tablet (20 mg total) by mouth daily 5 folic acid (FOLVITE) 1 mg tablet 4 furosemide (LASIX) 40 mg tabletIndications:L ymphedema Take 1 tablet (40 mg total) by mouth daily 90 tablet 1 5 09/06/19 26 gabapentin (NEURONTIN) 300 mg capsule 4 hydroxychloroquine (PLAQUENIL) 200 mg tablet Take 1 tablet (200 mg total) by mouth 2 (two) times a day 60 tablet 5 ibuprofen (ADVIL,MOTRIN) 600 mg tabletIndications:A cute sinusitis, recurrence not specified, unspecified location Take 1 tablet (600 mg total) by mouth every 6 (six) hours as needed for pain, fever or headaches (pain) 60 tablet 3 inhalational spacing device spacer 1 each daily 1 each 5 insulin glargine (LANTUS) 100 unit/mL (3 mL) pen for injectionIndication s:Uncontrolled type 2 diabetes mellitus with hyperglycemia (HCC) INJECT SUBCUTANEOUSLY 40 UNITS TWICE DAILY 75 mL 3 5 lancets 33 gauge miscIndications:Unc ontrolled type 2 diabetes mellitus with hyperglycemia (HCC) Use to check blood sugar as directed up to 4 times daily. 400 each 3 4 lidocaine (LIDODERM) 5 % Apply 1 patch topically daily; leave on most painful area for up to 12 hrs 5 lisinopriL (PRINIVIL,ZESTRIL) 40 mg tablet Take 1 tablet (40 mg total) by mouth daily 90 tablet 3 5 01/10/20 26 loratadine (CLARITIN) 10 mg tablet Take 1 tablet (10 mg total) by mouth daily LYUMJEV 100 unit/mL pen for injectionIndication s:Uncontrolled type 2 diabetes mellitus with hyperglycemia (HCC) INJECT SUBCUTANEOUSLY 10 UNITS BEFORE MEALS PLUS SLIDING SCALE 1 UNIT FOR EVERY 25 POINTS >150; MAXIMUM DAILY DOSE: 55 UNITS 60 mL 3 5 metoprolol tartrate (LOPRESSOR) 25 mg immediate release tablet Take 0.5 tablets (12.5 mg total) by mouth 2 (two) times a day 90 tablet 1 5 11/09/19 26 omeprazole (PriLOSEC) 40 mg capsule Take 1 capsule (40 mg total) by mouth daily 90 capsule 1 5 pen needle, diabetic (Izabella 2nd Gen Pen Needle) 32 gauge x /32 needle USE TO INJECT INSULIN UP TO 5 TIMES DAILY DIRECTED 450 each 3 5 potassium chloride ER (KLOR-CON) 20 mEq CR tabletIndications:L ymphedema Take 1 tablet (20 mEq total) by mouth daily 90 tablet 1 5 09/06/19 26 predniSONE (DELTASONE) 10 mg tablet 4 predniSONE (DELTASONE) 10 mg tablet Take 4 tablets (40 mg) by mouth daily for 30 days, THEN 3.5 tablets (35 mg) daily for 30 days, THEN 3 tablets (30 mg) daily. 315 tablet 5 08/01/20 25 sulfamethoxazole-tr imethoprim (BACTRIM DS) 800-160 mg per tablet TAKE 1 TABLET BY MOUTH 3 TIMES WEEKLY 24 tablet 1 5 tirzepatide (Mounjaro) 15 mg/0.5 mL pen injector injectionIndication s:Uncontrolled type 2 diabetes mellitus with hyperglycemia (HCC) Inject 0.5 mL (15 mg total) under the skin every 7 days 6 mL 3 5 traMADoL (ULTRAM) 50 mg tablet Take 1 tablet (50 mg total) by mouth every 8 (eight) hours as needed for pain 30 tablet 5 venlafaxine XR (EFFEXOR-XR) 150 mg 24 hr capsule Take 1 capsule (150 mg total) by mouth daily 90 capsule 1 5 Vitamin D2 1,250 mcg (50,000 unit) capsule TAKE 1 CAPSULE BY MOUTH TWICE WEEKLY 26 capsule 3 5 documented as of this encounter Discharge Disposition Disposition Code Departure Means Destination Discharge to home or self care documented in this encounter H&P Notes * Adam Corrales MD - 05/22/2025 12:15 PM CDT Patient Name: Camila Huitron : 1975 Today's Date: 05/22/2025 PCP: Lynn Rodriguez MD Most recent H&P reviewed, no pertinent changes noted. Encounter Diagnosis Name Primary? Spinal stenosis of lumbar region with neurogenic claudication Vitals BP 124/77 Pulse 110 Temp 97.2 ??F (36.2 ??C) (Temporal) Resp 16 LMP 05/17/2021 (Approximate) SpO2 98% Allergies Allergen Reactions Amoxicillin Nausea only Reaction: nausea, , Reaction: Nausea, Glipizide Nausea only Reaction: nausea, , Reaction: Nausea, Hydrochlorothiazide Stomach upset Reaction: GI upset, Hydrocodone Nausea only Reaction: Nausea, Metformin Nausea only and Vomiting Reaction: nausea, , Reaction: Nausea, , Reaction: Vomiting, Amlodipine Swelling and Nausea And Vomiting Reaction: Swelling, Victoza 2-Marvel [Liraglutide] Other (See comments) bruising Past Medical History: Diagnosis Date Arthritis Depression HX OTHER MEDICAL Hyperlipidemia; Comments: [facility] 04/11/2014 - HX OTHER MEDICAL Diabetes; Comments: [facility] 04/11/2014 - HX OTHER MEDICAL Seasonal allergies; Comments: [facility] 04/11/2014 - HX OTHER MEDICAL Sleep apnea; Comments: [facility] 04/11/2014 - HX OTHER MEDICAL 2013 Internal derangement of the knee; Comments: [facility] 04/11/2014 - HX OTHER MEDICAL Depression; Comments: [facility] 04/11/2014 - HX OTHER MEDICAL D and C HX OTHER MEDICAL D/C 02/2016 HX OTHER MEDICAL R knee meniscal repair 05/2014 HX OTHER MEDICAL Large uterine fibroid resected 04/2015, uterine darby HX OTHER MEDICAL IVF transfer 01/2016 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 Hyperlipidemia Hypertension Hypertension Morbid obesity (HCC) Sleep apnea Type 2 diabetes mellitus Past Surgical History: Procedure Laterality Date ABDOMINAL SURGERY COLONOSCOPY 04/02/2022 KNEE ARTHROSCOPY W/ LATERAL RELEASE MYOMECTOMY Myomectomy OTHER SURGICAL HISTORY Sleep apnea: CPAP OTHER SURGICAL HISTORY Internal derangement of the knee: knee arthroscopy Social History Tobacco Use Smoking status: Never Passive exposure: Never Smokeless tobacco: Never Substance and Sexual Activity Drug use: No Sexual activity: Defer Partners: Male control/protection: None Alcohol Use: Patient Unable To Answer (08/13/2024) Received from [facility] Health AUDIT-C Q1: How often do you have a drink containing alcohol?: Patient unable to answer Q2: How many drinks containing alcohol do you have on a typical day when you are drinking?: Patientunable to answer Q3: How often do you have six or more drinks on one occasion?: Patient unable to answer Family History Problem Relation Age of Onset Breast cancer Mother 86 Heart disease Mother 79 Heart disease; Hypertension Mother Hypertension; Diabetes Mother Diabetes; Heart attack Mother 54 Myocardial infarction; Hyperlipidemia Mother Hyperlipidemia; Diabetes type II Mother Diabetes mellitus type 2; Arthritis Mother Diabetes Sister Diabetes; Diabetes type II Sister Diabetes mellitus type 2; Depression Sister Depression; Diabetes Sister Diabetes Maternal Grandmother Diabetes; Alzheimer's disease Maternal Grandmother Skin cancer Father Cancer, skin; Cancer Father HOME MEDICATIONS: acetaminophen (TYLENOL) 500 mg tablet albuterol 2.5 mg /3 mL (0.083 %) nebulizer solution albuterol HFA (PROVENTIL HFA,VENTOLIN HFA,PROAIR HFA) 90 mcg/actuation inhaler atorvastatin (LIPITOR) 40 mg tablet Baqsimi 3 mg/actuation spray,non-aerosol benzonatate (TESSALON) 200 mg capsule blood glucose diagnostic strip blood-glucose sensor (Crowdboostercom G7 Sensor) device budesonide-formoteroL (SYMBICORT) 160-4.5 mcg/actuation inhaler buprenorphine (Belbuca) 150 mcg film buccal film cetirizine (ZyrTEC) 10 mg tablet cyclobenzaprine (FLEXERIL) [address] (VOLTAREN) 75 mg EC tablet dicyclomine (BENTYL) 20 mg tablet famotidine (PEPCID) 20 mg tablet folic acid (FOLVITE) 1 mg tablet furosemide (LASIX) 40 mg tablet gabapentin (NEURONTIN) 300 mg capsule hydroxychloroquine (PLAQUENIL) 200 mg tablet ibuprofen (ADVIL,MOTRIN) 600 mg tablet inhalational spacing device spacer insulin glargine (LANTUS) 100 unit/mL (3 mL) pen for injection lancets 33 gauge misc lidocaine (LIDODERM) 5 % lisinopriL (PRINIVIL,ZESTRIL) 40 mg tablet loratadine (CLARITIN) 10 mg tablet LYUMJEV 100 unit/mL pen for injection metoprolol tartrate (LOPRESSOR) 25 mg immediate release tablet omeprazole (PriLOSEC) 40 mg capsule pen needle, diabetic (Izabella 2nd Gen Pen Needle) 32 gauge x 5/32 needle potassium chloride ER (KLOR-CON) 20 mEq CR tablet predniSONE (DELTASONE) 10 mg tablet predniSONE (DELTASONE) 10 mg tablet sulfamethoxazole-trimethoprim (BACTRIM DS) 800-160 mg per tablet tirzepatide (Mounjaro) 15 mg/0.5 mL pen injector injection traMADoL (ULTRAM) 50 mg tablet venlafaxine XR (EFFEXOR-XR) 150 mg 24 hr capsule Vitamin D2 1,250 mcg (50,000 unit) capsule cyclobenzaprine (FLEXERIL) 10 mg tablet ROS: WNL for patient. PE: Alert and oriented. Normal pupils. Normal respiratory effort. Abdomen not distended. CN 2-12 grossly intact. Plan: Right L3-4 and L4-5 transforaminal epidural steroid injection documented in this encounter Miscellaneous Notes * Op Note - Adam Corrales MD - 05/22/2025 12:15 PM CDT Procedure: Right Transforaminal Epidural Steroid Injection (2 level) Diagnosis: Lumbar radiculopathy, spinal stenosis Indication for Procedure: Please see office note detailing need for epidural steroid injection. Surgeon: Tushar Corrales Anesthesia: Local Complications: None Description of Procedure: Informed Consent: Risks, benefits, complications, and alternatives to proceeding with the procedurewere discussed in detail with the patient. Questions were solicited and answered, and the patient endorsed explicit understanding and consent to proceed. The patient was informed risks included but are not limited to: serious infection, bleeding/bruising, allergic reaction, nerve or organ injury, paralysis, increased pain, worsening mobility, lack of pain relief, stroke, and . The patient was then allowed to place themself in the prone position on the operating room table. The back was prepped with chlorhexidine and draped in the usual sterile fashion. Fluoroscopy was utilized to identify and number the lumbar vertebrae. The C-arm was then obliqued to the right and an oblique view of the right L3/4 neuroforamen noted. Next, under AP, oblique, and lateral fluoro, a #22gauge spinal needle was advanced under fluoroscopic guidance until the tip lie at the neuroforamen. After negative aspiration, 0.5 ml Omnipaque contrast was injected, revealing appropriate spread. Again after negative aspiration, 1.5 ml of 10mg decadron in QS 3 ml PSF 1% Lidocaine was injected. This identical procedure was done concurrently for the right L4/5 level. Aseptic technique was utilized throughout. Location/laterality were confirmed with the patient and staff during timeout. The patient tolerated the procedure well, and there were no apparent complications. There were no neurosensory changes. The patient was brought to the recovery area. Vital signs stable. Injection site clean, dry, and intact. Post procedure instructions were given to the patientand a follow up confirmed. 24-hour contact information provided. The patient was instructed to callin the event of severe pain, bleeding, neurological deficit, fever, or other significant concerns, and to call 911 if there is any concern for any emergency. The patient denies complaints and is discharged. * Addendum Note - Jasmin Cai RN - 05/22/2025 12:15 PM CDTEncounter addended by: Jasmin Cai RN on: 05/23/2025 7:29 AM Actions taken: Charge Capture section accepted documented in this encounter Plan of Treatment Not on file documented as of this encounter Procedures Procedure Name Priority Date/Time Associated Diagnosis Comments PAIN MGMT IMAGING LUMBAR/SACRAL SELECTIVE NERVE ROOT INJ (TFE) RIGHT Schedule Routine, Read Routine (OP Routine) 05/22/2025 12:41 PM CDT Spinal stenosis of lumbar region with neurogenic claudication documented in this encounter Results * Imaging Lumbar/Sacral Selective Nerve Root INJ (TFE) Right ([id number]) (05/22/2025 12:41 PM CDT) Narrative RAD_PACS_ - 05/22/2025 12:46 PM CDT The images from this study are not interpreted by Radiology. Please refer to the physician's procedure / OR operative note. us Amada Baldwin NP IMG PAIN MGMT PROCEDURE S Final Result RAD_PACS_CH documented in this encounter Visit Diagnoses Diagnosis Radiculopathy, lumbosacral region [M54.17]- Primary Thoracic or lumbosacral neuritis or radiculitis, unspecified Spinal stenosis of lumbar region with neurogenic claudication documented in this encounter Administered Medications Inactive Administered Medications - up to 3 most recent administrations Medication Order MAR Action Action Date Dose Rate Site dexAMETHasone (DECADRON) preservative free solution intralumbar, Administer over 2 Minutes, As needed, Starting on 05/22/25 at 1243, Intra-Op Given 05/22/2025 12:43 PM CDT 10 mg iohexoL (OMNIPAQUE) 300 mg iodine/mL injection solution As needed, Starting on 05/22/25 at 1243, Intra-Op Given 05/22/2025 12:43 PM CDT 1 mL lidocaine (XYLOCAINE) 20 mg/mL (2 %) injection As needed, Starting on 05/22/25 at 1243, Intra-Op, Indications: Administration of Local AnesthesiaIndications:Administrati on of Local Anesthesia Given 05/22/2025 12:43 PM CDT 3 mL documented in this encounter Care Teams Security Systems Sales Representative Relationship Specialty [place] [id number] [address] PCP - General Internal Medicine 04/06/24 Ann Serrano MD Referring Physician Endocrinology Diabetes & Metabolism 06/08/20 documented as of this encounter
[2025-05-24] VITALS (9 sets, daily range): BP systolic 137–160; BP diastolic 74–94; PULSE 88–108; RESP 16–18; TEMP 36.3–36.6; O2SAT 95–100; BMI 53.3
--- NOTE | ~2025-05-24 | US_ITS ---
RIGHT LOWER EXTREMITY VENOUS DUPLEX Clinical History: R leg swollen, hot to touch COMPARISON: 02/28/2025 TECHNIQUE: Grayscale, color, duplex/spectral Doppler sonography right leg FINDINGS/IMPRESSION: 1. Probable thrombus within calf veins. 2. No [id number] DVT. Reviewed, dictated and finalized at location R.
--- OUTSIDE RECORDS SUMMARY | 2025-05-24 08:22 | XMS_ITS | Encounter Summary ---
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 States that she has a having worseningof numbness and tingling of bilateral legs and increasingly difficulty ambulating due to lower extremity weakness. History of autoimmune disease. Patient informed of inability to do lab work and no radiology available in-house. Patient states that she will cancel her appointment and follow up with her primary care doctor. documented in this encounter Plan of Treatment Not on file documented as of this encounter Visit Diagnoses Not on filedocumented in this encounter Care Teams Military Equipment Specialist Relationship Specialty [place] [address] [address] PCP - General Internal Medicine 04/06/24 Ann Serrano MD Referring Physician Endocrinology Diabetes & Metabolism 06/08/20 documented as of this encounter
--- OUTSIDE RECORDS SUMMARY | 2025-05-24 08:22 | XMS_ITS | Continuity of Care Document ---
Author Organization [employer] Address [address] [facility] [address] [place] [address] Insurance Providers Payer Plan Claims Address Claims Phone Policy Number Group Number Relation Employer Guarantor Name Guarantor Guarantor Address Guarantor Phone RX MEDIMP ACT RX MEDIM PACT [employer] [place] tel:[phone] [id number] Self Camila Huitron 1975 [address] [place] [address] RX OLIVEIRA PLANS (INTER NAL) RX OLIVEIRA PLANS (INTE RNAL) [id number] Self Camila Huitron 1975 [address] [place], [place] [id number] [facility] [address], [place] [address] tel:[phone] Self Camila Huitron 1975 [place] [address] Problems Condition ICD9 code ICD10 code SNOMED [...]
--- OUTSIDE RECORDS SUMMARY | 2025-05-24 08:23 | XMS_ITS | Clinical Summary ---
Author Organization [facility] Address [address] [place] [address] Phone Care Team Providers Care Legal Librarian Name Role Phone Masoud Hayes MD Primary Care Provider [phone] Allergies Active Allergy Reactions Criticality Noted Date [...] daily. Active lisinopril (PRINIVIL) 20 mg Oral tabletIndication s:Dyspnea,Edema, Hyperlipidemia,D iabetes mellitus,HTN (hypertension) Take 1 Tab by mouth daily. 90 Tab 1 2 Active cetirizine (ZyrTEC) 10 mg tablet Take 1 Tablet (10 mg) by mouth daily. 30 Tablet 08/13/2022 2:47 PM QUARTZ MOUNTER 3 Active amLODIPine (NORVASC) 2.5 mg tablet Take 1 Tablet (2.5 mg) by mouth daily in the morning. 90 Tablet 05/29/2023 5:55 PM CDT 3 Active cyclobenzaprine (FLEXERIL) 5 mg Tablet TAKE 1-2 TABLETS BY MOUTH NIGHTLY TO REDUCE MUSCLE CRAMPS 60 Tablet 3 07/10/2023 3:38 PM QUARTZ MOUNTER 3 Active hydroxychloroqui ne (PLAQUENIL) 200 mg tablet TAKE 2 TABLETS BY MOUTH ONCE DAILY 60 Tablet 3 07/10/2023 3:38 PM QUARTZ MOUNTER 3 Active mycophenolate mofetil (CELLCEPT) 500 mg tablet TAKE 3 TABLETS BY MOUTH TWICE DAILY 180 Tablet 4 07/10/2023 3:38 PM QUARTZ MOUNTER 3 Active insulin glargine (LANTUS) 100 unit/mL [...] for pain 30 Tablet 07/13/2024 12:19 PM QUARTZ MOUNTER 4 Active methylPREDNISolo ne (Medrol, Marvel,) 4 mg Tablets, Dose Pack [...] 3 Active fluticasone propionate (FLONASE) 50 mcg/spray [place], Suspension nasal inhaler Administer 2 Sprays in each nostril 1 time daily as needed. 3 Active folic acid (FOLVITE) 1 mg tablet 4 Active gabapentin (NEURONTIN) 300 mg capsule 4 Active glucagon (BAQSIMI) 3 mg/spray [place], Non-Aerosol Administer 1 [place] in each nostril. 4 Active insulin glargine-yfgn [...] mg Tablet, Delayed Release (E.C.) 4 Active medroxyPROGESTER one (Provera) 10 mg tablet Take 1 Tablet (10 mg) by mouth from the 1st to the 10th of the month. 30 Tablet 2 05/25/2024 1:28 PM CDT 4 Active predniSONE (DELTASONE) 10 mg tablet Take 4 Tablets (40 mg) by mouth daily. 120 Tablet 3 09/11/2024 3:51 PM QUARTZ MOUNTER 4 Active tirzepatide (Mounjaro) 10 mg/0.5 mL Pen Injector Inject 10 mg under the skin every 7 days 2 mL 3 09/29/2024 4:41 PM QUARTZ MOUNTER 4 Active isosorbide dinitrate (ISORDIL) 5 mg tablet Take 1 Tablet (5 mg) by mouth 3 times daily. 90 Tablet 10/10/2024 4:41 PM CDT 5 Active tirzepatide (Mounjaro) 12.5 mg/0.5 mL Pen Injector Inject 0.5 mL (12.5 mg total) under the skin every 7 days 2 mL 3 10/20/2024 10:04 AM CDT 5 Active budesonide-formo teroL (SYMBICORT) 160-4.5 mcg/actuation HFA Aerosol Inhaler Inhale 2 puffs by mouth 2 (two) times a day. Rinse mouth with water after use. Do not swallow. 10.2 Gram 11 11/02/2024 2:13 PM CDT 5 Active inhalational spacing device (EasiVent Holding Chamber) Spacer USE WITH INHALER. 1 Each 11/02/2024 2:13 PM CDT 5 Active sulfamethoxazole -trimethoprim (BACTRIM DS) 800-160 mg tablet Take 1 [...] inhaler Take 2 Puffs by inhalation. 5 026 Active blood sugar diagnostic Strip Use to check blood sugar as directed up to 4 times dialy. 5 Active Insulin [place], Disposable, 32 gauge x /32 Needle Use to inject insulin up as directed to 5 times daily. 4 Active lancets 33 gauge Use to check blood sugar as directed up to 4 times daily. 4 Active Blood-Glucose Sensor (Siri G7 Sensor) Device Use for continuous glucose monitor. Change sensor every 10 days. 4 Active methylPREDNISolo ne (Medrol, Marvel,) 4 mg Tablets, Dose Pack [...] times a day 60 Each 5 Active ketorolac tromethamine (TORADOL) 10 mg tablet Take 1 Tablet (10 mg) by mouth every 8 hours as needed for pain for 3 days. MAXIMUM TOTAL DURATION OF 5 DAYS. 10 Tablet 02/17/2025 5:26 PM CDT 5 Active prochlorperazine maleate (COMPAZINE) 10 mg tablet Take 0.5 Tablets (5 mg) by mouth every 8 hours as needed FOR HEADACHE. 5 Tablet 02/17/2025 5:26 PM CDT 5 Active venlafaxine (EFFEXOR XR) 150 mg Extended Release 24 hour capsule Take 1 capsule (150 mg total) by mouth daily 100 Capsule 1 02/21/2025 12:33 PM CDT 5 Active furosemide (LASIX) 40 mg tablet Take 1 tablet (40 mg total) by mouth daily 90 Tablet 1 03/10/2025 3:08 PM CDT 5 Active potassium CHLORIDE (K-DUR,KLOR-CON M20) 20 mEq Extended Release tablet Take 1 tablet (20 mEq total) by mouth daily 90 Tablet 1 03/10/2025 3:08 PM CDT 5 Active benzonatate (TESSALON) 200 mg capsule Take 1 Capsule (200 mg) by mouth every 8 hours as needed for cough. 20 Capsule 03/13/2025 6:51 PM CDT 5 Active omeprazole (PriLOSEC) 40 mg Capsule, Delayed Release(E.C.) Take 1 capsule (40 mg total) by mouth daily 90 Capsule 1 03/24/2025 3:13 PM CDT 5 Active buprenorphine HCL (Belbuca) 150 mcg Film Apply 1 film (150 mcg total) to cheek 2 (two) times a day 60 Each 04/02/2025 3:02 PM CDT 5 Active Active Problems Patient Care Coordination No te Formatting of this note migh t be different from the original. Real Estate Operations Manager: Dr. Peraza Problem Noted Date Diagnosed Date Dyspnea 03/19/2012 Overview (03/22/2012): 02/11 EKG: NSR at 92 02/11 echo (TDS): EF 55%, trace MR, PA 24 Edema 03/19/2012 Hyperlipidemia 03/19/2012 Overview (03/19/2012): 02/11 cholesterol 235 HDL 51 LDL 153 triglyceride 155 Diabetes mellitus 03/19/2012 Overview (03/19/2012): 02/11 hemoglobin A1c 8.2 HTN (hypertension) Encounters Date Type Department Care Team Description 05/16/2025 External Device Data ST[facility] ABSTRACTION Provider, Abstract 05/02/2025 External Device Data [facility] ABSTRACTION Provider, Abstract 04/11/2025 External Device Data [place] ABSTRACTION Provider, Abstract 03/14/2025 External Device Data [place] ABSTRACTION Provider, Abstract [...] on file Legal Sex Female 6:10 AM QUARTZ MOUNTER Gender Identity Not on file Sexual Orientation Not on file 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 See individual assays for performing site location. CLINICAL INFORMATION [facility] [place] Comment:None given LAST MENSTRUAL PERIOD [facility] [place] Comment:10/02/2023 PREV PAP: [facility] [place] Comment:NONE GIVEN PREV BX: [facility] [place] Comment:NONE GIVEN SOURCE [facility] [place] Comment:Endocervix ADEQUACY: [facility] [place] Comment: Satisfactory for evaluation. Endocervical/transformation zone component absent. PAP INTERP [facility] [place] Comment: Cytology Results: Negative for intraepithelial lesion or malignancy. COMMENT (PAP TEST) [facility] [place] Comment: This Pap test has been evaluated with computer assisted technology. SUPERVISOR THROWING DEPARTMENT: Ni Ramirez Comment: MEF, CT(ASCP) CT screening location: [place] [address] [place] [address] EXPLANATORY NOTE [facility] Comment: EXPLANATORY NOTE: The Pap is [...] information. HPV E6/E7 Not Detected Not Detected [facility] [place] Comment: Methodology: Prototyper-Mediated Amplification This assay detects E6/E7 viral messenger RNA (mRNA) from 14 high-risk HPV types (16,18,31,33,35,39,45,51,52,56,58,59,66,68). Cervical sources are required for HPV testing. If a vaginal source from a patient who has had a total hysterectomy with removal of cervix was submitted, please contact the testing laboratory for alternative testing options. For additional information, please refer to http://education.Omnisio/faq/KUX597j6 (This link if provided for information/ educational purposes only.) Test Performed at: [email or web address] [id number] [id number] Torin GUZMAN Genital SWAB OF ENDOCERVIX / Unknown 05/17/2024 4:26 PM CDT 05/18/2024 3:48 AM CDT us Kendrick Teague MD PATHOLOGY/CYTOLOGY ORDERABLE S Final Result [facility] [phone] [facility] [address] [id number] from Last 3 Months or Most Recently Relevant to Health Maintenance Insurance [employer] [id number] RX [employer] RX Member Subscriber Plan / Payer (Ef fective 2023-Present) Name:Walt Huitron Relation to Subscriber:Self Name:Walt Huitron Subscriber ID:Not on file Payer ID:Not on file Group ID:[id number] Type:RX Commercial Address: [address] [employer] (INTERNAL) [facility] Care Teams Legal Librarian Relationship Specialty Start Date End Date Masoud Hayes MD PCP - General Internal Medicine 03/08/12
--- OUTSIDE RECORDS SUMMARY | 2025-05-24 08:23 | XMS_ITS | Encounter Summary ---
Author Organization [facility] Address [address] [place] [address] Care Team Providers Care Vice President Of Product Marketing Name Role Phone Tiffany Cox MD Primary Care Provider Unavailable Kishor Saleh MD Primary Care Provider [phone] Encounter Details Date Type Department Care Team (Late st Contact Info) Description 07/03/2023 Lab Requisition [facility] - [facility] Lab [address] [place] [address] [place] [address] [place] [address] Social History Tobacco Use Types Packs/Day Years Used Date Smoking Tobacco: Never Assessed Comments Unknown Sex and Gender Information Value Date Recorded Sex Assigned at Not on file Legal Sex Female 4:50 AM DIRECTOR OF ASSISTED LIVING Gender Identity Not on file Sexual Orientation Not on file documented as of this encounter Plan of Treatment Not on file documented as of this encounter Visit Diagnoses Not on filedocumented in this encounter Additional Health Concerns Infection Onset Date Last Indicated Resolved Time COVID-19 Under Investigation 08/13/2024 08/13/2024 08/13/2024 11:30 PM DIRECTOR OF ASSISTED LIVING documented as of this encounter Care Teams Vice President Of Product Marketing Relationship Specialty Start Date End Date Tiffany Cox MD PCP - General Internal Medicine 05/16/13 07/30/23 Kishor Saleh MD [address] [place] [address] [address] [place] [address] PCP - General Internal Medicine 07/31/23 documented as of this encounter
--- OUTSIDE RECORDS SUMMARY | 2025-05-24 08:23 | XMS_ITS | Encounter Summary ---
Author Organization [facility] Address [address] [place] [address] Phone Care Team Providers Care Manager Programming Name Role Phone Kishor Saleh MD Primary Care Provider [phone] Ann Serrano MD Unavailable [phone] No, Physician Primary Care Provider [phone] Kishor Saleh MD Primary Care Provider [phone] Lynn Rodriguez MD Primary Care Provider Encounter Details Date Type Department Care Team (Late st Contact Info) Description 09/30/2017 Orders Only [facility] ProviderStephenie MD [address] [place] [address] Social History Tobacco Use Types Packs/Day Years Used Date Smoking Tobacco: Never Smokeless Tobacco: Never Alcohol Use Standard Drinks/Week Comments No 0 (1 standard drink = 0.6 oz pur e alcohol) Comments Unknown Sex and Gender Information Value Date Recorded Sex Assigned at Not on file Legal Sex Female 11:54 PM STIFF LEG DERRICK OPERATOR Gender Identity Female 09/19/2020 8:37 AM STIFF LEG DERRICK OPERATOR Sexual Orientation Straight 09/19/2020 8: 37 AM STIFF LEG DERRICK OPERATOR documented as of this encounter Plan of Treatment Not on file documented as of this encounter Procedures Procedure Name Priority Date/Time Associated Diagnosis Comments DISCHARGE LABORATORY CUMULATIVE REPORT 09/30/2017 12:00 AM STIFF LEG DERRICK OPERATOR documented in this encounter Results * DISCHARGE LABORATORY CUMULATIVE REPORT (09/30/2017 12:00 AM STIFF LEG DERRICK OPERATOR) Narrative 09/30/2017 12:00 AM STIFF LEG DERRICK OPERATOR Ordered by an unspecified provider. us Historical Provider LAB BLOOD ORDERABLES Folra l Result documented in this encounter Visit Diagnoses Not on filedocumented in this encounter Additional Health Concerns Infection Onset Date Last Indicated Resolved Time COVID: Suspected 08/13/2022 08/13/2022 08/13/2022 1:16 PM STIFF LEG DERRICK OPERATOR COVID: Suspected 11/07/2024 11/07/2024 11/07/2024 2:20 PM CDT COVID: Suspected 03/13/2025 03/13/2025 03/13/2025 3:44 PM CDT documented as of this encounter Care Teams Manager Programming Relationship Specialty Start Date End Date Kishor Saleh MD PCP - General 09/28/08 11/16/23 No, Physician PCP - General 11/17/23 12/28/23 Kishor Saleh MD [address] [place] [address] PCP - General Internal Medicine 12/29/23 04/05/24 [place] [address] [facility] [address] [place] [address] PCP - General Internal Medicine 04/06/24 Ann Serrano MD Referring Physician Endocrinology Diabetes & Metabolism 06/08/20 documented as of this encounter
--- OUTSIDE RECORDS SUMMARY | 2025-05-24 08:23 | XMS_ITS | Encounter Summary ---
Author Organization [facility] Address [address] [place] [address] Care Team Providers Care Fur Cutter Name Role Phone Tiffany Cox MD Primary Care Provider Unavailable Kishor Saleh MD Primary Care Provider Encounter Details Date Type Department Care Team (Late st Contact Info) Description 07/03/2023 Lab Requisition [facility] Lab [address] [place] [address] [place] [address] [address] Social History Tobacco Use Types Packs/Day Years Used Date Smoking Tobacco: Never Assessed Comments Unknown Sex and Gender Information Value Date Recorded Sex Assigned at Not on file Legal Sex Female 4:50 AM CONTRACT POST OFFICE CLERK Gender Identity Not on file Sexual Orientation Not on file documented as of this encounter Plan of Treatment Not on file documented as of this encounter Procedures Procedure Name Priority Date/Time Associated Diagnosis Comments DERMATOPATHOLOGY Routine 07/01/2023 3:33 AM CONTRACT POST OFFICE CLERK documented in this encounter Results * DERMATOPATHOLOGY (07/01/2023 3:33 AM CONTRACT POST OFFICE CLERK) Case Report Dermatopathology Report Case: [id number] Authorizing Provider: Kendrick Christopher MD Collected: 07/01/2023 03:33 AM Ordering Location: [facility] Received: 07/03/2023 12:12 PM Pathologist: Bella Schwab MD Specimen: Skin, right inferior knee 3:45 PM [facility] DERMAT[facility]OR[facility] Final Diagnosis Specimen A. SKIN, right inferior knee: STASIS DERMATITIS (L30.8) DERMAL FIBROSIS (L90.5) (see microscopic description) 3 3:45 PM [facility] DERMATOPATHOLOGY LABORATORY at 1545 CONTRACT POST OFFICE CLERK Clinical History Rash; R/O Leukocytoclastic Vasculitis, Livedo [...] determined by the Dermatopathology Laboratory at [facility], directed by Dr. Arnol Perea. These tests need not be, and therefore are not, approved by the [place] Food and Drug Administration. The tests are used for clinical purposes. Billing Codes Specimen Charges Stain Charges 84619 1 71406 1 3 3:45 PM [facility] DERMATOPATH[facility]OR[facility]ORY Embedded Images 3 3:45 PM [facility] DERMATOPATH[facility]Y [facility]OR[facility]ORY Pathology/Cytolo gy TISSUE SPECIMEN FROM SKIN / Unknown 07/01/2023 3:33 AM CONTRACT POST OFFICE CLERK 07/03/2023 12:12 PM CONTRACT POST OFFICE CLERK Kendrick Christopher MD LAB - PATHOLOGY/CYTOLOGY O RDERABLES Final Result DERMATOPATHOLOGY LABORATORY [facility] - Department of Dermatology [facility] Medicine [address] [place] [address], [address] [phone] documented in this encounter Visit Diagnoses Not on filedocumented in this encounter Additional Health Concerns Infection Onset Date Last Indicated Resolved Time COVID-19 Under Investigation 08/13/2024 08/13/2024 08/13/2024 11:30 PM CONTRACT POST OFFICE CLERK documented as of this encounter Care Teams Fur Cutter Relationship Specialty Start Date End Date Tiffany Cox MD PCP - General Internal Medicine 05/16/13 07/30/23 Kishor Salhe MD [address] [place] [address] [address] [address] [place] [address] PCP - General Internal Medicine 07/31/23 documented as of this encounter
--- OUTSIDE RECORDS SUMMARY | 2025-05-24 08:23 | XMS_ITS | Clinical Summary ---
Author Organization [facility] Medical Office Building A Address [address] [place] [address] Care Team Providers Care Graining Press Operator Name Role Phone Ann Serrano MD Unavailable [phone] Lynn Rodriguez MD Primary Care Provider Allergies [...] by mouth daily 30 tablet 023 Active loratadine (CLARITIN) 10 mg tablet Take 1 tablet (10 mg total) by mouth daily Active predniSONE (DELTASONE) 10 mg tablet 024 Active gabapentin (NEURONTIN) 300 mg capsule 024 Active folic acid (FOLVITE) 1 mg tablet 024 Active lancets 33 gauge miscIndications: Uncontrolled type 2 diabetes mellitus with hyperglycemia (HCC) Use to check blood sugar as directed up to 4 times daily. 400 each 3 024 Active blood-glucose sensor (Access Mobile G7 Sensor) deviceIndication s:Uncontrolled type 2 diabetes mellitus with hyperglycemia (HCC),intermediate manager (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) Use [...] every 6 (six) hours as needed Active budesonide-formo teroL (SYMBICORT) 160-4.5 mcg/actuation inhaler Inhale 2 puffs 2 (two) times a day Rinse mouth with water after use. Do not swallow. 1 each 11 Active inhalational spacing device spacer 1 each daily 1 each 025 Active traMADoL (ULTRAM) 50 mg tablet Take 1 tablet (50 mg total) by mouth every 8 (eight) hours as needed for pain 30 tablet 025 Active Vitamin D2 1,250 mcg (50,000 [...] needed Active LYUMJEV 100 unit/mL pen for injectionIndicat ions:Uncontrolle d type 2 diabetes mellitus with hyperglycemia (HCC) INJECT SUBCUTANEOUSLY 10 UNITS BEFORE MEALS PLUS SLIDING SCALE 1 UNIT FOR EVERY 25 POINTS >150; MAXIMUM DAILY DOSE: 55 UNITS 60 mL 3 Active albuterol 2.5 mg /3 mL (0.083 %) nebulizer solution USE 1 VIAL VIA NEBULIZER EVERY 6 HOURS NEEDED FOR WHEEZING (TECHNICAL ILLUSTRATOR RECOMMENDS NOT EXCEEDING 4 VIALS/DAY) 600 mL 6 Active albuterol HFA (PROVENTIL HFA,VENTOLIN HFA,PROAIR HFA) 90 mcg/actuation inhaler USE 2 INHALATIONS BY MOUTH EVERY 4 HOURS NEEDED FOR WHEEZING OR SHORTNESS OF BREATH 51 g Active Baqsimi 3 mg/actuation spray,non-aeroso lIndications:Unc ontrolled type 2 diabetes mellitus with hyperglycemia (HCC) INSERT DEVICE TIP INTO 1 NOSTRIL PUSH DEVICE PLUNGER UNTIL GREEN LINE DISAPPEARS. NEEDED IN CASE OF EMERGENCY LOW BLOOD SUGARS. 1 each Active lisinopriL (PRINIVIL,ZESTRI L) 40 mg tablet Take 1 tablet (40 mg total) by mouth daily 90 tablet 2025 Active atorvastatin (LIPITOR) 40 mg tabletIndication s:Uncontrolled type 2 diabetes mellitus with hyperglycemia (HCC),Mixed hyperlipidemia Take 1 tablet (40 mg total) by mouth daily 90 tablet 2025 Active insulin glargine (LANTUS) 100 unit/mL (3 mL) pen for injectionIndicat ions:Uncontrolle d type 2 diabetes mellitus with hyperglycemia (HCC) INJECT SUBCUTANEOUSLY 40 UNITS TWICE DAILY 75 mL Active pen needle, diabetic (Izabella 2nd Gen Pen Needle) 32 gauge x 5/32 needle USE TO INJECT INSULIN UP TO 5 TIMES DAILY DIRECTED 450 each Active tirzepatide (Mounjaro) 15 mg/0.5 mL pen injector injectionIndicat ions:Uncontrolle d type 2 diabetes mellitus with hyperglycemia (HCC) Inject 0.5 mL (15 mg total) under the skin every 7 days 6 mL Active furosemide (LASIX) 40 mg tabletIndication s:Lymphedema Take 1 tablet (40 mg total) by mouth daily 90 tablet 025 2025 Active potassium chloride ER (KLOR-CON) 20 mEq CR tabletIndication s:Lymphedema Take 1 tablet (20 mEq total) by mouth daily 90 tablet 025 2025 Active benzonatate (TESSALON) 200 mg capsuleIndicatio ns:Acute cough Take 1 capsule (200 mg total) by mouth every 8 (eight) hours as needed for cough 20 capsule 025 Active sulfamethoxazole -trimethoprim (BACTRIM DS) 800-160 mg per tablet TAKE 1 TABLET BY MOUTH 3 TIMES WEEKLY 24 tablet [address] (VOLTAREN) 75 mg EC tablet TAKE 1 TABLET BY MOUTH TWICE DAILY 180 tablet 3 025 Active omeprazole (PriLOSEC) 40 mg capsule Take 1 capsule (40 mg total) by mouth daily 90 capsule 1 025 Active buprenorphine (Belbuca) 150 mcg film buccal filmIndications: Chronic right-sided low back pain with right-sided sciatica,Sacroil iitis,Radiculopa thy, lumbosacral region Apply 1 each (150 mcg total) to cheek 2 (two) times a day 60 each 025 Active hydroxychloroqui ne (PLAQUENIL) 200 mg tablet Take 1 tablet (200 mg total) by mouth 2 (two) times a day 60 tablet 025 Active predniSONE (DELTASONE) 10 mg tablet Take 4 tablets (40 mg) by mouth daily for 30 days, THEN 3.5 tablets (35 mg) daily for 30 days, THEN 3 tablets (30 mg) daily. 315 tablet 025 2024 Active venlafaxine XR (EFFEXOR-XR) 150 mg 24 hr capsule Take 1 capsule (150 mg total) by mouth daily 90 capsule 1 025 Active metoprolol tartrate (LOPRESSOR) 25 mg immediate release tablet Take 0.5 tablets (12.5 mg total) by mouth 2 (two) times a day 90 tablet 1 025 2025 Active cyclobenzaprine (FLEXERIL) 10 mg tablet Take 1 tablet (10 mg total) by mouth nightly as needed for muscle spasms 30 tablet 1 025 Active hydroxychloroqui ne (PLAQUENIL) 200 mg tablet Take 1 tablet (200 mg total) by mouth 2 (two) times a day 023 2024 Discontinued(Sharan cyr) pamabrom (DIUREX MAX ORAL) 024 2024 Discontinued(P atient Reported) methotrexate 2.5 mg tablet Take 5 tablets (12.5 mg total) by mouth 2024 Discontinued(P atient Reported) montelukast (SINGULAIR) 10 mg tablet Take 1 tablet (10 mg total) by mouth nightly 2024 Discontinued(P atient Reported) cyclobenzaprine (FLEXERIL) 10 mg tablet 3 024 2024 Discontinued(R eorder) metoprolol tartrate (LOPRESSOR) 25 mg immediate release tablet Take 0.5 tablets (12.5 mg total) by mouth 2 (two) times a day 90 tablet 1 025 2024 Discontinued(R eorder) predniSONE (DELTASONE) 10 mg tablet Take 4 tablets (40 mg) by mouth daily for 30 days, THEN 3.5 tablets (35 mg) daily for 30 days, THEN 3 tablets (30 mg) daily. 315 tablet 2024 Discontinued venlafaxine XR (EFFEXOR-XR) 150 mg 24 hr capsule Take 1 capsule (150 mg total) by mouth daily 100 capsule 1 025 2024 Discontinued(R eorder) doxycycline hyclate 100 mg capsule 2024 Discontinued(P atient Reported) Active Problems Problem Noted Date Diagnosed Date Cellulitis of right lower extremity 03/12/2025 Assessment & Plan (03/12/2025 2:22 PM CDT): Recent hospitalization Symptoms improving Continue to monitor Spinal stenosis of lumbar re gion with [...] Dysphagia 12/30/2024 Lymphedema 12/29/2024 Assessment & Plan (03/12/2025 2:20 PM CDT): Improved Continue furosemide Continue lymphedema therapy Assessment & Plan (02/15/2025 10:36 AM CDT): [...] exertion Follow up pulmonary Impaired mobility 07/29/2024 intermediate manager (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 07/13/2024 [facility] 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 user 07/13/2024 Assessment & Plan (07/13/2024 12:22 PM WATER SKI ASSEMBLER): - Further complicates diabetes management Has immunity to COVID-19 virus 06/21/2021 Overview (06/30/2022): Pito vaccine 10/05/2020, Moderna booster and Pfizer bivalent booster Assessment & Plan (06/24/2021 3:28 PM WATER SKI ASSEMBLER): Pito vaccine 10/05/2020 and Moderna booster Jun 2021 Major depressive disorder 04/22/2021 Assessment & Plan (01/06/2024 9:09 AM CDT): Stable on current medication regimen. Assessment & Plan (01/17/2022 10:21 AM CDT): Stable on current medication regimen. Assessment & Plan (07/17/2021 2:07 PM WATER SKI ASSEMBLER): Better controlled on venlafaxine. Assessment & Plan (04/22/2021 8:25 AM CDT): Restart venlafaxine and warned of side effects and call back if any develop or if no improvement. 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 Unfortunately lab work and skin biopsy inconclusive. Discussed possible rheumatology 2nd opinion here at [facility] and patient will call back if desired. Assessment & Plan (06/15/2023 10:48 AM WATER SKI ASSEMBLER): Certainly making a case for underlying vasculitis [...] condition. Assessment & Plan (06/20/2020 9:35 AM WATER SKI ASSEMBLER): Unclear etiology but I am thinking of [...] tolerated Assessment & Plan (08/26/2024 6:10 PM WATER SKI ASSEMBLER): Body mass index is 49.1 kg/m . BMI Follow-up includes: nutrition counseling, exercise counseling, and education provided. Assessment & Plan (07/13/2024 12:20 PM WATER SKI ASSEMBLER): - Increase Mounjaro to 10 mg weekly [...] tolerated. Assessment & Plan (06/08/2023 5:23 PM WATER SKI ASSEMBLER): Patient is encouraged to lose weight with a combination of caloric reduction and increased exercise. Various strategies discussed. The long-term risks associated with continued morbid obesity discussed. Assessment & Plan (09/04/2022 2:34 PM WATER SKI ASSEMBLER): Patient is encouraged to lose weight with a combination of caloric reduction and increased exercise. Various strategies discussed. The long-term risks associated with continued morbid obesity discussed. Assessment & Plan (08/02/2022 12:16 PM WATER SKI ASSEMBLER): Patient is encouraged to lose weight with [...] discussed. Assessment & Plan (07/13/2020 8:34 AM WATER SKI ASSEMBLER): Patient is encouraged to lose weight with a combination of caloric reduction and increased exercise. Various strategies discussed. The long-term risks associated with continued morbid obesity discussed. Assessment & Plan (06/20/2020 9:35 AM WATER SKI ASSEMBLER): Patient is encouraged to lose weight with a combination of caloric reduction and increased exercise. Various strategies discussed. The long-term risks associated with continued morbid obesity discussed. Assessment & Plan (07/08/2019 8:44 AM WATER SKI ASSEMBLER): Patient is encouraged to lose weight with a combination of caloric reduction and increased exercise. Various strategies discussed. The long-term risks associated with continued morbid obesity discussed. Irregular menses 06/03/2019 Allergic rhinitis 07/05/2018 Assessment & Plan (02/23/2023 1:30 PM CDT): Nasal saline spray (Simply saline, Little Remedies, [place], [place]) 2 second sprays or 2 squeezes into [...] daily Assessment & Plan (07/17/2021 2:07 PM WATER SKI ASSEMBLER): Claritin montelukast. Assessment & Plan (04/22/2021 8:25 AM CDT): Currently using Claritin and montelukast. She has not been trying Flonase as her nose is being to congested. Recommended sinus rinses her using a hot warm shower. Could also try Afrin for few days. Assessment & Plan (07/08/2019 8:43 AM WATER SKI ASSEMBLER): Add montelukast to her Claritin. She struggles with nasal sprays due to chronic congestion. Assessment & Plan (07/05/2018 9:24 AM WATER SKI ASSEMBLER): Try Afrin for 3 days along with [...] mg/dL Assessment & Plan (07/13/2024 12:21 PM WATER SKI ASSEMBLER): - Last LDL 103, TG 308, TC [...] triglycerides. Assessment & Plan (09/12/2023 8:12 PM WATER SKI ASSEMBLER): Continue statin and optimize glycemic control Assessment & Plan (02/16/2023 8:14 PM CDT): Continue statin and optimize glycemic control Assessment & Plan (01/21/2023 9:50 AM CDT): Continue her atorvastatin and work on diet exercise and check lipids and LFTs before next visit. Assessment & Plan (08/02/2022 12:15 PM WATER SKI ASSEMBLER): Well controlled on current therapy and will check a lipid panel and LFTs in 6 months. Assessment & Plan (01/17/2022 10:21 AM CDT): Well controlled on current therapy and will check a lipid panel and LFTs in 6 months. Assessment & Plan (07/17/2021 2:06 PM WATER SKI ASSEMBLER): Well controlled on current therapy and will check a lipid panel and LFTs in 6 months. Assessment & Plan (06/24/2021 3:28 PM WATER SKI ASSEMBLER): Continue statin and optimize glycemic control Assessment & Plan (12/19/2020 7:53 AM CDT): Continue statin and optimize glycemic control Assessment & Plan (07/13/2020 8:34 AM WATER SKI ASSEMBLER): Well controlled on current therapy and will check a lipid panel and LFTs in 6 months. Assessment & Plan (06/08/2020 8:31 AM WATER SKI ASSEMBLER): LDL within goal. Continue statin and optimize glycemic control Assessment & Plan (07/08/2019 8:42 AM WATER SKI ASSEMBLER): Well controlled on current therapy and will check a lipid panel and LFTs in 12 months. Assessment & Plan (09/01/2018 2:22 PM WATER SKI ASSEMBLER): Continue statin, optimize glycemic control Assessment & Plan (07/05/2018 9:23 AM WATER SKI ASSEMBLER): Well controlled on current therapy and will check a lipid panel and LFTs in 6 months. Assessment & Plan (08/26/2017 4:27 PM WATER SKI ASSEMBLER): Start atorvastatin and check lipids and LFTs in 3-4 months. Call back for results. Vitamin D deficiency 07/02/2017 Assessment & Plan (07/13/2024 12:22 PM WATER SKI ASSEMBLER): - Last Vitamin D 42 (12/2023), replete [...] week Assessment & Plan (09/12/2023 8:12 PM WATER SKI ASSEMBLER): Continue long-term supplement Assessment & Plan (02/16/2023 8:14 PM CDT): Continue long-term supplement Assessment & Plan (08/02/2022 12:15 PM WATER SKI ASSEMBLER): Continue current supplementation and check level in 1 year. Assessment & Plan (07/17/2021 2:06 PM WATER SKI ASSEMBLER): Continue current supplementation and check level in 1 year. Assessment & Plan (06/24/2021 3:29 PM WATER SKI ASSEMBLER): Continue long-term supplement Assessment & Plan (12/19/2020 7:53 AM CDT): Continue long-term supplement Assessment & Plan (07/13/2020 8:33 AM WATER SKI ASSEMBLER): Continue current supplementation and check level in 1 year. Assessment & Plan (06/08/2020 8:31 AM WATER SKI ASSEMBLER): Vitamin-D level within goal, continue chronic supplement Assessment & Plan (07/08/2019 8:42 AM WATER SKI ASSEMBLER): Continue current supplementation and check level in 1 year. Assessment & Plan (06/03/2019 8:24 AM CDT): Recently ran out of supplement, so we will restart and check her level today. Also check B12 Assessment & Plan (09/01/2018 2:22 PM WATER SKI ASSEMBLER): Continue supplement Assessment & Plan (07/05/2018 9:23 AM WATER SKI ASSEMBLER): Continue current supplementation and check level in 1 year. Assessment & Plan (08/26/2017 4:26 PM WATER SKI ASSEMBLER): Continue current supplementation and check level in 1 year. Uncontrolled type 2 diabetes mellitus with hyper glycemia 03/24/2016 Overview (07/05/2018): Cannot tolerate metformin, glipizide due to nausea/vomiting; Invokana works better than jardiance. Does not tolerate acarbose Assessment & Plan (03/12/2025 2:20 PM CDT): Last A1C Lab Results Component Value Date HGBA1C 8.9 (A) 01/09/2025 Not at goal Increase morning and evening Lantus Increasing Mounjaro to 15 mg Low carb diet Continue current medication Assessment & Plan (02/15/2025 10:34 AM CDT): [...] Value Date HGBA1C 8.9 (A) 01/09/2025 Per [place] [employer], goal A1c is less 7% [...] that I am available via phone or Pharmaron Holdinghart if they have any concerns for hypo/hyperglycemia, medication refills, etc. Assessment & Plan (10/12/2024 11:32 AM CDT): - Diabetes is complicated by hyperlipidemia, hypertension, obesity and chronic steroid use. Control is improving with most recent A1c 7.8%. Lab Results Component Value Date HGBA1C 11.7 07/13/2024 Per [place] [employer], goal A1c is less 7% [...] that I am available via phone or Pharmaron [employer]hart if they have any concerns for hypo/hyperglycemia, medication refills, etc. Assessment & Plan (08/26/2024 6:10 PM WATER SKI ASSEMBLER): Assessment & Plan (07/13/2024 12:20 PM WATER SKI ASSEMBLER): - Diabetes is complicated by hyperlipidemia, hypertension, morbid obesity and chronic steroid use. Uncontrolled. Lab Results Component Value Date HGBA1C 11.7 07/13/2024 Per [place] [employer], goal A1c is less 7% [...] in prescriptions for both Dexcom G7 and Workshareyle Silva 3 CGM for olivares checking. Also [...] Return visit 3 months to see the FLOOR COVERINGS SALESPERSON/PA, 6 months to see me. Assessment & [...] Component Value Date HGBA1C 12.5 11/17/2023 Per [place] [employer], goal A1c is less 7% [...] Component Value Date HGBA1C 12.5 11/17/2023 Per [place] [employer], goal A1c is less 7% [...] etc. Assessment & Plan (09/12/2023 8:13 PM WATER SKI ASSEMBLER): Very high glucoses; multifactorial including steroid therapy, [...] daily. Assessment & Plan (06/24/2021 3:29 PM WATER SKI ASSEMBLER): Much improved but needs a little more basal insulin. Assessment & Plan (12/19/2020 7:53 AM CDT): Multiple medications, but now requires insulin. We can gradually adjust her Lantus based on her clinical response. Assessment & Plan (06/08/2020 8:32 AM WATER SKI ASSEMBLER): Glucoses somewhat better now that she is [...] motivator. Assessment & Plan (07/08/2019 8:43 AM WATER SKI ASSEMBLER): Continue increased dose of Ozempic and also continue Invokana. Importance of dietary changes increase exercise weight loss discussed. Follow-up with her screw eye assembler as they direct. Assessment & Plan (06/03/2019 8:25 AM CDT): Somewhat suboptimal, would benefit from increasing Ozempic and continuing efforts with diet and lifestyle. Needs follow-up labs Assessment & Plan (09/01/2018 2:22 PM WATER SKI ASSEMBLER): Glucoses a little high, but she has bruising with Victoza so she may benefit by changing to weekly Ozempic, which is a little stronger, as well. Jardiance is been ineffective, so we may need to provide preauthorization for Invokana Assessment & Plan (07/05/2018 9:23 AM WATER SKI ASSEMBLER): A1c above goal. We stressed importance of increased exercise, reduce calories, weight loss. Could consider switching Victoza to ozempic. Otherwise does not tolerate metformin or sulfonylureas. May need insulin soon. She is directed to follow up with her screw eye assembler more quickly than her next scheduled appointment in November. Assessment & Plan (08/26/2017 4:26 PM WATER SKI ASSEMBLER): Continue current medication regimen and follow up with her screw eye assembler as they direct. Low carb diet weight loss recommended. Check blood sugars once daily. Start atorvastatin and check lipids and LFTs in 3-4 months. Anxiety state 12/17/2013 Overview (11/07/2016): ANXIETY STATE NOS Benign hypertension 12/17/2013 Overview (11/07/2016): BENIGN HYPERTENSION Assessment & Plan (03/12/2025 2:20 PM CDT): Goal BP <130/80 Well controlled Continue current prescribed medication at current dose Encouraged low salt diet Assessment & Plan (02/15/2025 10:35 AM CDT): [...] mmHg Assessment & Plan (07/13/2024 12:21 PM WATER SKI ASSEMBLER): - Above goal today - Encouraged her [...] monitor. Assessment & Plan (06/08/2023 5:25 PM WATER SKI ASSEMBLER): Stop amlodipine with current issues of swelling. Pressure currently well controlled and should monitor at home Assessment & Plan (01/21/2023 9:49 AM CDT): Blood pressure well controlled on lisinopril Assessment & Plan (09/04/2022 2:34 PM WATER SKI ASSEMBLER): Blood pressure well controlled on her lisinopril. Assessment & Plan (08/02/2022 12:15 PM WATER SKI ASSEMBLER): Increase lisinopril to 20 mg daily. Monitor blood pressure at home call back if no improvement. Assessment & Plan (01/17/2022 10:21 AM CDT): Well controlled on the current regimen. Avoidance of salt, proper body weight, and routine exercise recommended. Assessment & Plan (07/17/2021 2:06 PM WATER SKI ASSEMBLER): Well controlled on the current regimen. Avoidance of salt, proper body weight, and routine exercise recommended. Assessment & Plan (04/22/2021 8:24 AM CDT): Well controlled on the current regimen. Avoidance of salt, proper body weight, and routine exercise recommended. Assessment & Plan (07/13/2020 8:34 AM WATER SKI ASSEMBLER): Well controlled on the current regimen. Avoidance of salt, proper body weight, and routine exercise recommended. Assessment & Plan (07/08/2019 8:42 AM WATER SKI ASSEMBLER): Well controlled on the current regimen. Avoidance of salt, proper body weight, and routine exercise recommended. Assessment & Plan (09/01/2018 2:21 PM WATER SKI ASSEMBLER): Blood pressure close to target, working on diet and lifestyle Assessment & Plan (07/05/2018 9:23 AM WATER SKI ASSEMBLER): Well controlled on the current regimen. Avoidance of salt, proper body weight, and routine exercise recommended. Assessment & Plan (08/26/2017 4:25 PM WATER SKI ASSEMBLER): Well controlled on the current regimen. Avoidance [...] montelukast Assessment & Plan (08/26/2024 6:08 PM WATER SKI ASSEMBLER): Recent exacerbation due to CAP followed by RSV Symptoms improved Continue present plan and medication--albuterol prn, montelukast Assessment & Plan (07/13/2020 8:36 AM WATER SKI ASSEMBLER): Doing well on her Symbicort. Okay to discontinue and use albuterol only as needed. Restart Symbicort if uses her albuterol more than 2 times a week. JEREMY (obstructive sleep apnea) 04/01/2012 Overview (11/12/2017): Description: CPAP Assessment & Plan (01/06/2024 9:08 AM CDT): Patient is compliant with the CPAP machine and gets symptomatic relief. Assessment & Plan (08/02/2022 12:15 PM WATER SKI ASSEMBLER): Patient is compliant with the CPAP machine and gets symptomatic relief. Assessment & Plan (07/17/2021 2:06 PM WATER SKI ASSEMBLER): Repeat sleep study confirmed obstructive sleep apnea [...] syndrome. Assessment & Plan (07/13/2020 8:34 AM WATER SKI ASSEMBLER): Patient is compliant with the CPAP machine and gets symptomatic relief. Assessment & Plan (07/08/2019 8:42 AM WATER SKI ASSEMBLER): Patient is compliant with the CPAP machine and gets symptomatic relief. Female infertility associated with anovulation 0 09/21/2011 Resolved Problems Problem Noted Date Diagnosed Date Resolved Date Decreased functional mobility and endurance 12/29/2024 02/15/2025 Uncontrolled diabetes mellit us with hyperglycemia 08/14/2024 12/21/2024 Acute hypoxic respiratory failure 08/13/2024 12/21/2024 Assessment & Plan (08/26/2024 6:09 PM WATER SKI ASSEMBLER): Recent hospitalization likely for CAP followed by [...] legs Assessment & Plan (06/15/2023 10:47 AM WATER SKI ASSEMBLER): Improved after addition of doxycycline to her Bactrim. Call back if symptoms worsen after doxycycline runs out Assessment & Plan (06/08/2023 5:25 PM WATER SKI ASSEMBLER): Seems like cellulitis slow to improve either [...] 12/21/2024 Assessment & Plan (09/04/2022 2:35 PM WATER SKI ASSEMBLER): No signs of neurological abnormality on examination [...] Continue other medications as directed by her screw eye assembler. Diet exercise discussed. Hopefully may be able to wean prednisone in the near future as well. Assessment & Plan (06/15/2023 10:48 AM WATER SKI ASSEMBLER): She knows that the steroids will exacerbate her hyperglycemia and should be in contact with her screw eye assembler for management. Assessment & Plan (06/08/2023 5:26 PM WATER SKI ASSEMBLER): Poor control of her diabetes prior to this hospitalization and even worse now on prednisone. Follow-up with her screw eye assembler for management. Diet exercise weight loss recommended. Assessment & Plan (01/21/2023 9:50 AM CDT): Blood sugars remain above goal. Hopefully the recent addition of mounjaro will help significantly. Discuss up titration of this and her mealtime insulin with her screw eye assembler. Diet exercise discussed. Check A1c and fasting blood sugar before next visit. Assessment & Plan (08/02/2022 12:16 PM WATER SKI ASSEMBLER): A1c poorly controlled. Importance of diet exercise weight loss discussed at length. Continue her Ozempic and insulin and needs to contact her screw eye assembler soon as possible for guidance on further therapy. Assessment & Plan (01/17/2022 10:22 AM CDT): Patient aware A1c grossly uncontrolled. Must work on diet exercise and weight loss. She has to get back on her insulin and should discuss this today with her screw eye assembler. Risks posed her health with poor glycemic control discussed. Assessment & Plan (07/13/2020 8:34 AM WATER SKI ASSEMBLER): A1c above goal. Importance of diet exercise weight loss discussed. Continue current medication regimen and follow-up with her screw eye assembler as they direct. Dyslipidemia 06/03/2019 07/13/2020 Healthcare [...] yearly. Colonoscopy due March 2027. Follow-up the staff physical therapist for breast exam pelvic exam as they direct. Will see her back in about 6 months sooner if needed. Assessment & Plan (08/02/2022 12:17 PM WATER SKI ASSEMBLER): Flu shot each May. Tetanus booster every 10 years. Pneumovax completed. COVID booster recommended. Mammogram yearly. Colonoscopy due March 2027. Follow-up the staff physical therapist for breast exam pelvic exam as they direct. Will see her back in 6 months with lab sooner if needed. 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 Tetanus booster every 10 years. Pneumovax completed. COVID vaccine completed. Mammogram yearly. Colonoscopy ordered and she should verify coverage before proceeding. Follow-up the staff physical therapist for breast exam and pelvic exam as they direct. We will see her back in 1 year for physical and fasting lab sooner if needed. Assessment & Plan (07/13/2020 8:35 AM WATER SKI ASSEMBLER): Flu shot each May. Tetanus booster every 10 years. She has had a Pneumovax. Mammogram was abnormal back in August and she has delayed follow-up studies until now and she is urged to get her diagnostic and ultrasound studies done at her earliest convenience and she is aware of the risks posed her health with delay in proceeding. Follow-up the staff physical therapist for breast exam and pelvic exam as they direct. We will see her back in 1 year for wellness visit fasting lab sooner if needed. Assessment & Plan (07/08/2019 8:43 AM WATER SKI ASSEMBLER): Flu shot each May. Tetanus booster every 10 years. Mammogram ordered. Will see her back in 1 year for physical and fasting lab sooner if needed. Assessment & Plan (07/05/2018 9:24 AM WATER SKI ASSEMBLER): Tetanus booster today. Flu shot each May. Mammogram ordered. Patient should follow-up the staff physical therapist breast exam and pelvic exam. We will see her back in 1 year for wellness visit fasting lab sooner if needed. Assessment & Plan (08/26/2017 4:27 PM WATER SKI ASSEMBLER): Flu shot each May. Tetanus booster every 10 years. See her staff physical therapist for breast exam mammogram and Pap smear [...] aerobics Assessment & Plan (08/26/2017 4:28 PM WATER SKI ASSEMBLER): Patient is encouraged to lose weight with [...] 02/11 echo (TDS): EF 55%, trace MR, LAY 24 Edema 09/21/2011 08/26/2024 Encounters Date Type Department Care Team Description 05/23/20 Telephone [facility] [place] [address] [place] [address] Jory Sage NP 05/22/20 11:39 AM CDT - 05/22/20 11:59 PM CDT Hospital Encounter [facility] [address] [place] [address] Adam Corrales MD Radiculopathy, lumbosacral region [M54.17] (Primary Dx); Spinal stenosis of lumbar region with neurogenic claudication Discharge Disposition: Discharge to home or self care 05/15/20 Telephone [facility] [address] [place] [address] Tigist Shultz 04/18/20 Telephone [facility] [address] [place] [address] Tigist Shultz 04/07/20 9:30 AM CDT Office Visit [facility] Sleep Medicine at [address] [place] [phone] Iqra Jensen MD JEREMY (obstructive sleep apnea) (Primary Dx); Hypersomnia; Obesity, unspecified class, unspecified obesity type, unspecified whether serious comorbidity present; Restless leg syndrome 04/06/20 Telephone [facility] [place] [place] [facility] [address] [place] [address] [address] [place] [phone] Iqra Jensen MD 04/04/20 11:30 AM CDT Lab [facility] Endocrinology Metabolism and Lipid [address] 5th [place] [address] [place] [phone] Elevated liver function test s 04/04/20 11:00 AM CDT Office Visit [facility] Rheumatology [address] [place] [address] [place] [phone] Lucian Trinidad MD PhD penitentiary 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 user (Primary Dx); Dermatitis 04/04/20 Results Follow-Up [facility] Endocrinology Metabolism and Lipid [address] [place] [address] [place] [address] Shirley Hicks PA Hepatic function panel 04/04/20 Telephone [facility] at [facility] [address] [place] [address] Ele Vazquez, PT 03/30/20 25 Telephone [facility] Sleep Medicine at [place] [address] [place] [address] Iqra Jensen MD 03/29/20 Results Follow-Up [facility] Gastroenterology at [address] [place] [address] Ad Camacho MD Surgical pathology 03/28/20 7:00 PM CDT - 03/28/20 11:59 PM CDT Hospital Encounter [facility] [address] [place] [address] JEREMY (obstructive sleep apnea ) Discharge Disposition: Discharge to home or self care 03/27/20 Telephone [facility] at [address] [address] Adelina Little, PT Appointment 03/23/20 1:00 PM CDT - 03/23/20 11:59 PM CDT Hospital Encounter [facility] [address] [place] [phone] Amada Baldwin NP Spinal stenosis of lumbar region with neurogenic claudication (Primary Dx); Radiculopathy, lumbosacral region; Uncontrolled type 2 diabetes mellitus with hyperglycemia (HCC); Benign hypertension Discharge Disposition: Discharge to home or self care 03/23/20 Telephone [facility] at [address] [address] Adelina Little, PT Cancel (08/05 NS/Cx - Date PT Treatment Started: 12/29/2024/) 03/21/20 2:30 PM CDT Office Visit [facility] Pulmonary at [address] [place] [address] Josiah Doan DO Chronic hypoxic respiratory failure (HCC) (Primary Dx) 03/20/20 8:39 AM CDT Anesthesia Event [address] [address] Agatha Helton MD Gill, Matthew, CRNA 03/20/20 8:30 AM CDT - 03/20/20 9:00 AM CDT Surgery [address] [address] Ad Camacho MD ESOPHAGOGASTRODUODENOSCOPY BIOPSY 03/20/20 7:30 AM CDT - 03/20/20 9:42 AM CDT Hospital Encounter [facility] [address] [place] [address] Ad Camacho MD Dysphagia, unspecified type Discharge Disposition: Discharge to home or self care 03/20/20 Orders Only [facility] Gastroenterology at [address] [address] Ad Camacho MD 03/17/20 Telephone [facility] Gastroenterology at [address] [phone] Ml Burnette EGD Reschedule 03/14/20 Telephone [facility] Gastroenterology at [address] [address] Ml Burnette EGD 03/13/20 1:45 PM CDT Office Visit [facility] Convenient Care at [address] [place] [phone] Awa Spann NP Left acute otitis media (Primary Dx); Acute cough 03/13/20 12:00 PM CDT Therapy [facility] at [address] [place] [address] Tiffanie Cantu, FLACA Lymphedema (Primary Dx) 03/10/20 11:30 AM CDT Office Visit [facility] Primary Care at [facility] - [address] [place] [address] [place] [phone] Lynn Rodriguez MD Cellulitis of right lower extremity (Primary Dx); Lymphedema; Benign hypertension 03/09/20 Telephone [facility] Primary Care at [facility] - [address] [place] [address] [place] [phone] Lynn Rodriguez MD MARY Questions 03/08/20 25 Telephone [facility] at [address] [address] Tiffanie Cantu, PT Appointment 03/01/20 25 Telephone [facility] at [address] [address] Adelina Little, PT Appointment 02/22/20 25 Telephone [facility] at [address] [address] Adelina Little, PT Appointment from Last 3 Months Immunizations Immunization Administration Dates Next Due Influenza, Quadrivalent, Rosita l Culture-based MDCK, Preservative Free, Antibiotic Free, Intramuscular 05/13/2023,05/23/2022 Influenza, Quadrivalent, Spl it, Intramuscular 05/03/2015 Influenza, Quadrivalent, Spl it, Preservative Free, Intramuscular 05/16/2020,05/07/2018 Influenza, Unspecified 05/16/2021,2020,04/22/2021(Defer red: Patient Refused),03/19/2021(Deferred: Patient Refused),05/12/2019,05/07/2017 [employer] SARS-CoV-2 Vaccination 10/05/2020 Pneumococcal Conjugate Pcv20 04/06/2024 Pneumococcal Polysaccharide PPV23 08/03/2010, Td, adsorbed 07/05/2018 Tdap 10/04/2007 Surgical History Surgery Date Site/Laterality Comments OTHER SURGICAL HISTORY Sleep apnea: CPAP OTHER SURGICAL HISTORY Internal derangement of the knee: knee arthroscopy MYOMECTOMY Myomectomy COLONOSCOPY 04/02/2022 KNEE ARTHROSCOPY W/ LATERAL RELEASE ABDOMINAL SURGERY Medical History Medical History Date Comments Hypertension Hypertension Hx Other Medical Hyperlipidemia; Comments: W 04/11/2014 - Hx Other Medical Diabetes; Comme [...] IVF transfer 2015 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 Morbid obesity (HCC) Hyperlipidemia Type 2 diabetes mellitus Sleep apnea Depression Arthritis Family History Medical [...] Name Status Comments Father Adam Maternal Grandmother Namoi Mother Zora Alive Paternal Grandmother Sister 1 [...] on file Legal Sex Female 11:54 PM WATER SKI ASSEMBLER Gender Identity Female 09/19/2020 8:37 AM WATER SKI ASSEMBLER Sexual Orientation Straight 09/19/2020 8: 37 AM WATER SKI ASSEMBLER Obstetrics History Para Term AB IAB SAB Ectopic Multiple Livin g Live Births 0 0 0 Last Filed Vital Signs Vital Sign Reading Time Taken Comments Blood Pressure 124/77 05/22/2025 12:55 PM CDT Pulse 110 05/22/2025 12:55 PM CDT Temperature 36.2 C (97.2 F) 05/22/2025 12:18 PM CDT Respiratory Rate 16 05/22/2025 12:5 5 PM CDT Oxygen Saturation 98% 05/22/2025 12: 55 PM CDT Inhaled Oxygen Concentration - - Weight 146.7 kg (323 lb 6.4 oz) 04/07/2025 9:02 AM CDT Height 167.6 cm (5' 6) 04/04/2025 10:3 7 AM CDT Body Mass Index 52.2 04/04/2025 10:37 AM CDT Plan of Treatment Health Maintenance Due Date Last Done Comments Cervical Cancer Screening 1975 Hepatitis C Screening 1975 Hepatitis B Screening 1994 Dilated Eye Exam 11/10/2024 11/10/2022, 03/2022, 04/23/2021, Additional history exists Regular Well Visit/Exam 18-64 01/04/2025 01/05/2024, 07/18/2022, 07/17/2021, Additional history exists Covid-19 Vaccine ( season) 2025 05/13/2023, 05/23/2022, 06/20/2021, Additional history exists Influenza Vaccine (#1) 2025 , 05/13/2023, 05/23/2022, Additional history exists Foot Exam 04/06/2025 04/06/2024, 07/03, 03/26/2021, Additional history exists Hemoglobin A1C 07/11/2025 01/09/2025, 08/03, 07/13/2024, Additional history exists Albumin Creatinine Ratio, Urine 01/09/2026 01/09/2025, 12/29/2023, 12/29/2023, Additional history exists Breast Cancer Screening-Mammogram 01/09/2026 01/09/2025, 12/29/2023, 02/25/2023, Additional history exists Lipid Panel 01/09/2026 01/09/2025, 12/02, 12/29/2023, Additional history exists Depression Screening 02/15/2026 02/15/2025, 12/21/2024, 08/23/2024, Additional history exists eGFR 02/15/2026 02/15/2025, 0604/2025, 11/09/2024, Additional history exists Zoster Vaccine (1 of 2) 03/10/2026 Post poned from 1995 (Patient declined, but will receive in the future) Colon Cancer Screening-Colonoscopy 04/02/2027 04/02/2022 DTaP/Tdap/Td Vaccine (3 - Td or Tdap) 07/05/2028 07/05/2018, 10/04/2007 Pneumococcal vaccine <65 Completed 024, 08/03/2010, 08/17/2009 Procedures Procedure Name Priority Date/Time Associated Diagnosis Comments PAIN MGMT IMAGING LUMBAR/SACRAL SELECTIVE NERVE ROOT INJ (TFE) RIGHT Schedule Routine, Read Routine (OP Routine) 05/22/2025 12:41 PM CDT Spinal stenosis of lumbar region with neurogenic claudication HEPATIC FUNCTION PANEL Routine 11:23 AM CDT Elevated liver function tests PSG (SIMPLE) Routine 03/30/2025 JEREMY (obstructive sleep apnea) SURGICAL PATHOLOGY STAT 03/20/2025 11:37 AM CDT Dysphagia, unspecified type ESOPHAGOGASTRODUODENOSCOPY BIOPSY 03/20/2025 8:32 AM CDT Dysphagia, unspecified type POCT GLUCOSE DEVICE Routine 03/20/2025 8:15 AM CDT EGD 03/20/2025 7:43 AM CDT POCT RESPIRATORY SYNCYTIAL VIRUS Routine 03/13/2025 3:43 PM CDT Acute cough POC INFLUENZA A/B, COVID-19 ANTIGEN Routine 03/13/2025 3:43 PM CDT Acute cough COMPREHENSIVE METABOLIC PANEL Routine 10:41 AM CDT Cutaneous vasculitis LIPID PANEL Routine 01/09/2025 12:30 PM CDT Uncontrolled type 2 diabetes mellitus with hyperglycemia (HCC) ALBUMIN CREATININE RATIO, URINE Routine 01/09/2025 12:30 PM CDT Uncontrolled type 2 diabetes mellitus with hyperglycemia (HCC) SCREENING MAMMOGRAM BILATERA L W VINCENZO Schedule Routine, Read Routine (OP Routine) 01/09/2025 12:12 PM CDT Screening mammogram, encounter for POCT HEMOGLOBIN A1C Routine 01/09/2025 10:44 AM CDT Uncontrolled type 2 diabetes mellitus with hyperglycemia (HCC) DIABETIC EYE EXAM Routine 11/10/2022 COLONOSCOPY 04/02/2022 9:28 AM CDT DIABETIC FOOT EXAM Routine 03/26/2021 from Last 3 Months or Most Recently Relevant to Health Maintenance Results * Imaging Lumbar/Sacral Selective Nerve Root INJ (TFE) Right ([id number]) (05/22/2025 12:41 PM CDT) Narrative [facility] - 05/22/2025 12:46 PM CDT The images from this study are not interpreted by Radiology. Please refer to the physician's procedure / OR operative note. us Amada Baldwin FLOOR COVERINGS SALESPERSON IMG PAIN MGMT PROCEDURE S Final Result [facility] * Hepatic function panel (04/04/2025 11:23 AM CDT) Direct Bilirubin 0.11 0.00 - 0.20 mg/dL THOMAS PIERRE Comment:Please note new refe rence range for Direct Bilirubin effective 12/29/24 AST (SGOT) 16 11 - 47 IU/L [facility] ALT (SGPT) 43 6 - 53 IU/L [facility] Alk Phos, Total 75 35 - 129 IU/L [facility] Albumin 4.3 3.5 - 5.2 g/dL [facility] Total Bilirubin 0.23 0.20 - 1.40 mg/dL [facility] Total Protein 7.2 6.1 - 8.4 g/dL [facility] Blood 04/04/2025 11:2 3 AM CDT 04/04/2025 12:43 PM CDT Shirley Teixeira [facility] LAB BLOOD ORDERABLE S Final Result [facility] * PSG (03/30/2025) Impressions Iqra Jensen MD - 03/30/2025 Baseline Polysomnogram History: Walt Huitron is a 49 y.o. female who presents for baseline polysomnogram. Reason for sleep study: Obstructive sleep apnea Easton sleepiness score: 6 Weight: 311 lbs BMI: 50.23 Procedure: This overnight diagnostic baseline polysomnogram was performed with the survey technologist in attendance. Patient is studied with multiple channel polysomnography to include EEG, sleep stage recording, cardio-respiratory monitoring, monitoring for limb movements as well as videotaping. Central, frontal, occipital and temporal EEG, bilateral EOG, submental EMG, oral and nasal airflow, thoracoabdominal motion, bilateral anterior tibialis EMG, one lead EKG, snore sensor, pulse oximetry and transcutaneous CO2 were monitored. Sleep stages, periodic limb movements, EEG arousals and respiratory events were scored according to the criteria from The [place] [employer] (AASM) Manual for the scoring of sleep and associated events - version 2.6. Findings: Baseline parameters: Baseline heart rate =99/m, Oxygen saturation =96% Sleep architecture: Polysomnogram revealed total recording time of 399.5 minutes and total sleep time of 85.0 minutes with sleep efficiency of 21.3%. Sleep onset latency was 30.9 minutes. N1 11.8%, N2 84.1%, N3 4.1% and REM 0.0% accounted for the total sleep time. EEG profile: EEG was reviewed. Snoring profile: The patient had audible breathing. Respiratory analysis: A total of 0 obstructive apneas, 0 mixed apneas, 0 central apneas and 3 hypopneas were seen with AHI of 2.1 per hour. In addition, 0 Respiratory Effort Related Arousals (RERAs) were seen with AHI+RERA index or respiratory disturbance index (RDI) of 2.1. Oximetry data: Lowest oxygen saturation was 86%. The patient had an O2 saturation < 88% for 0.6 minutes. Lowest oxygen saturation was associated with a respiratory event. TcCO2 data: Baseline TcCO2 was 35 mmHg and the maximum TcCO2 was 39 mmHg during the study. Limb movement profile: A total of 264 periodic limb movements were noted, of which 19 movements were associated with arousal. Total movement index was 186.4 per hour and movement with arousal index was 13.4 per hour. Parasomnia profile: No abnormal behavior to suggest parasomnia was noted. EKG analysis: revealed tachycardia. Interpretation and Recommendations: This is an abnormal polysomnogram due to the presence of: 1. Many periodic limb movements of sleep (PLMS) noted. PLMS can be associated with conditions such as restless leg syndrome, iron deficiency anemia, uremia, peripheral neuropathy, and use of medications such as tricyclic antidepressants. Clinical correlation is recommended. 2. Prolonged sleep latency and reduced sleep efficiency: Patient has prolonged sleep onset latency of 30.9 minutes and reduced sleep efficiency of 21.3%. Factors like, psychiatric illness, insomnia or chronic pain may be contributory as well as poor sleep hygiene and/or daytime napping. Clinical correlation is recommended. 3. EKG analysis revealed tachycardia. Clinical correlation is recommended. Iqra Jensen MD [facility] Sleep Medicine Narrative Iqra Jensen MD - 03/30/2025 In lab study is ready for review us Iqra Jensen MD [facility] ORDERABLES Final Re sult * Surgical pathology (03/20/2025 11:37 AM CDT) Tissue (Gastric/Stomach biopsy) 03/20/2025 8:52 AM CDT Tissue specimen (specimen) (Esophageal biopsy) 03/20/2025 8:53 AM CDT Tissue specimen (specimen) (Esophageal biopsy) 03/20/2025 8:53 AM CDT Narrative PATHOLOGY [facility] - 03/21/2025 2:54 PM CDT EPIC results best viewed via link to PDF [facility] Department of Pathology [address] [place], [place] [id number] Note to Patients: This report may contain a detailed description of human tissue sent by a health care provider to the laboratory for pathologic evaluation. The content of this report is essential for diagnosis and may provide important critical findings. This information may be unfamiliar to patients to review without a medical professional present. It is advised that the patient review this report in the presence of a health care provider who can answer questions and explain the details. Final Report Patient Name: WALT HUITRON Address: [address] [place] [address] Gender: F : 1975 (Age: 49) Service: Gastro Location: [facility] Hospital #: [id number] Patient Type: [facility] Taken: 03/20/2025 Received: 03/20/2025 Accessioned: 03/20/2025 Reported: 03/21/2025 Physician(s):Ad Camacho MD Diagnosis: A. Stomach, biopsy: - Antral and oxyntic type gastric mucosa showing mild chronic active gastritis with erosion. - Negative for intestinal metaplasia and dysplasia. - Negative for Helicobacter. B. Distal esophagus, biopsy: - Squamocolumnar epithelium with mixed inflammation compatible with reflux related changes. - Negative for intestinal metaplasia and dysplasia. C. Proximal esophagus, biopsy: - Fragments of benign squamous epithelium. Kendrick Antoine M.D. Report Electronically Reviewed and Signed Out By Kendrick Antoine M.D. 03/21/2025 14:54:24 Specimen(s) Received: A: Gastric biopsy B: Distal esophageal biopsy C: Proximal esophageal biopsy Microscopic Description: A. Sections show antral and oxyntic-type gastric mucosa showing mild chronic active gastritis with erosion. There is no evidence of intestinal metaplasia or dysplasia. In order to classify the gastritis further, a Helicobacter immunohistochemical stain was performed with adequate controls and is negative. B. Sections show fragments of squamocolumnar epithelium with mixed inflammation compatible with reflux related changes. There is no evidence of intestinal metaplasia or dysplasia. C. Sections show fragments of benign squamous epithelium. No significant inflammatory infiltrate is seen. No fungal elements or viral cytopathic effect is seen. There is no evidence of dysplasia. No glandular mucosa is present. Clinical History: Dysphagia. EGD. Gross Description: The specimen is submitted in three formalin containers labeled WALT HUITRON. A. The first container is labeled gastric biopsy. It is 4 sesay tissue fragments between 1 and 2 mm. All in A. B. The second container is labeled distal esophagus. It is 3 sesay tissue fragments between 1 and 2 mm. All in B. C. The third container is labeled proximal esophagus. It is 2 sesay tissue fragments between <1 and 1 mm. All in C. T.A. Anjel Marcial P.A./Keya Vera M.D. REPORT IMAGES AND SCANNED DOCUMENTS, IF INCLUDED, ONLY VIEWABLE IN PDF VERSION OF REPORT The performance characteristics of some immunohistochemical stains, fluorescence in-situ hybridization tests and immunophenotyping by flow cytometry cited in this report (if any) were determined by the Surgical Pathology Department at [facility] as part of an ongoing quality control operator program and in compliance with federally mandated regulations drawn from the Clinical Laboratory Improvement Act of 1988 (CLIA '88). Some of these tests rely on the use of analyte specific reagents and are subject to specific labeling requirements by the US Food and Drug Administration. Such diagnostic tests may only be performed in a facility that is certified by the Department of Health and Human Services as a high complexity laboratory under CLIA '88. The FDA has determined that such clearance or approval is not necessary. This test is used for clinical purposes. It should not be regarded as investigational or for research. Nevertheless, federal rules concerning the medical use of analyte specific reagents require that the following disclaimer be attached to the report: This test was developed and its performance characteristics determined by the Surgical Pathology Department [facility]. It has not been cleared or approved by the U. S. Food and Drug Administration. Note for decalcified specimens: This assay has not been validated on decalcified tissues. Results should be interpreted with caution given the possibility of false negativity on decalcified specimens us Yixi Tu MD LAB PATHOLOGY ORDERABLES Final R esult Performing Organization Address City/[facility]/ZIP Co de Phone Number PATHOLOGY [facility] [address] [place] [address] * POCT glucose (03/20/2025 8:15 AM CDT) Glucose, POC 193 70 - 199 mg/dL Blood 03/20/2025 8:15 AM CDT 03/20/2025 8:15 AM CDT Ad Camacho MD LAB POCT ORDERABLES - DEVICE Fin al Result Performing Organization Address [facility] de Phone Number [facility] 1 [facility] Department [place] [address] * EGD (03/20/2025 7:43 AM CDT) Anatomical Region Laterality Modality Other Narrative Procedure Note Ad Camacho MD - 03/20/2025 7:43 AM CDT [facility] Patient Name: Walt Huitron Procedure Date: 03/20/2025 7:43 AM Date of : 1975 Admit Type: Outpatient Age: 49 Gender: Female Attending MD: Ad Camacho M.D., Room: [facility] ENDOSCOPY ROOM 3 Note Status: Finalized Patient Profile: This is a 49 year old female HTN, morbid obesity,HLD, IDDM2, JEREMY, here for EGD to evaluate for dysphagiaand globus sensation that started beginning of the year when she was intubated for PNA. She feels likefood, drink and pills get stuck around her throat intermittently but eventually goes down. She alsohas globus sensation with discomfort in her throat even without swallowing. She does not have any reflux or heartburn. She does take famotine at night time for brain fog. Procedure: Upper GI endoscopy Indications: Dysphagia, Globus sensation Referring MD: Lynn Rodriguez M.D. Providers: Ad Camacho M.D. Impression: - Z-line irregular, at the gastroesophagealjunction. Biopsied. - Longitudinally marked mucosa in the esophagus. Biopsied for EoE. - A small amount of food (residue) in thestomach. - Erosive gastropathy with no bleeding and nostigmata of recent bleeding. Biopsied. - Erythematous mucosa in the antrum and prepyloric region of the stomach. Biopsied. - Normal examined duodenum. Recommendation: - Patient has a contact number available for emergencies. The signs and symptoms of potential delayed complications were discussed with thepatient. Return to normal activities tomorrow. Written discharge instructions were provided to thepatient. - Discharge patient to home (with escort). - Gastroparesis diet. - No ibuprofen, naproxen, or other non-steroidal anti-inflammatory drugs. - Await pathology results. - Use Prilosec (omeprazole) 40 mg PO daily. - Return to referring provider as previouslyscheduled. Medicines: Monitored Anesthesia Care Complications: No immediate [...] procedure were verified by the physician, the security police and the library technician in the endoscopy suite. Mental Status Examination: normal. Prophylactic Antibiotics: The patient does not require prophylactic antibiotics. Prior Anticoagulants: The patient has taken no anticoagulant or antiplatelet agents. Afterreviewing the risks and benefits, the patient was deemed in satisfactory condition to undergo the procedure.The anesthesia plan was to use monitored anesthesiacare (MAC). Immediately prior to administration of medications, the patient was re-assessed foradequacy to receive sedatives. The heart rate, respiratory rate, oxygen saturations, blood pressure, adequacyof pulmonary ventilation, and response to care were monitored throughout the procedure. The physical status of the patient was re-assessed after the procedure. The benefits, risks, and alternatives to theprocedure and sedation were discussed and informed consentwas obtained. The scope was passed under direct vision. The Endoscope [id number] was introduced through the mouth, and advanced to the second partof duodenum. The upper GI endoscopy was accomplished without difficulty. The patient tolerated the procedure well. Findings: The Z-line was irregular and was found at the gastroesophagealjunction. Biopsies were taken with a cold forceps for histology. Mucosal changes characterized by longitudinal markings were found inthe entire esophagus but most pronounced from mid to distal esophagus. Biopsies were taken with a cold forceps for histology from distal and proximal esophagus to evaluate for EoE. A small amount of food (residue) was found in the gastric fundus andin the gastric body. A single localized small erosion with no bleeding and no stigmata of recent bleeding was found in the prepyloric region of the stomach. Biopsies were taken with a cold forceps for Helicobacter pyloritesting. Mildly erythematous mucosa was found in the gastric antrum and in the prepyloric region of the stomach. Biopsies were taken with a cold forceps for Helicobacter pylori testing. The examined duodenum was normal. Ad Camacho M.D. 03/20/2025 9:05:01 AM Number of Addenda: 0 Note Initiated On: 03/20/2025 7:43 AM Procedure Code(s): --- Professional --- 38814, Esophagogastroduodenoscopy, flexible, transoral; with biopsy, single or multiple --- Technical --- 26934, Esophagogastroduodenoscopy, flexible, transoral; with biopsy, single or multiple Diagnosis Code(s): --- Professional --- K22.89, Other specified disease of esophagus K31.89, Other diseases of stomach and duodenum R13.10, Dysphagia, unspecified R09.A2, Foreign body sensation, throat --- Technical --- K22.89, Other specified disease of esophagus K31.89, Other diseases of stomach and duodenum R13.10, Dysphagia, unspecified R09.A2, Foreign body sensation, throat CPT copyright 2022 [employer]. All rights reserved. The codes documented in this report are preliminary and upon belt loop machine operator reviewmay be revised to meet current compliance requirements. Recognized by the [employer] for promoting quality in endoscopy Ad Camacho MD ENDOSCOPY PROCEDURES Final Resul t * POC Influenza A/B, COVID-19 antigen (03/13/2025 3:43 PM CDT) Pathologist [facility] Influenza A Ag, POC Negative Negative [facility] Influenza B Ag, POC Negative Negative [facility] COVID-19 Ag POC Presumptive Negative Presumptive Negative, Invalid [facility] Swab 03/13/2025 3:43 PM CDT Nara Harris NP POINT OF CARE TEST MICHAEL MONTGOMERY Final Result [facility] [address] [id number] * POCT respiratory syncytial virus (03/13/2025 3:43 PM CDT) RSV Rapid Ag Negative Negative, Invalid Swab 03/13/2025 3:43 PM CDT Nara Harris NP POINT OF CARE TEST ORDMarkos MONTGOMERY Final Result * (ABNORMAL) Comprehensive metabolic panel (02/15/2025 10:41 [...] ORDERABLE S Final Result Performing Organization Address City/[facility]/ZIP Co de Phone Number [facility] [address] [place] [place] [address] * Albumin Creatinine Ratio, Urine (01/09/2025 12:30 PM CDT) Albumin Ur 37.8 mg/L Comment: Interpretive Data No reference range established. Current interpretive data was last revised 2018. Creatinine Ur 353.8 mg/dL [facility] Comment: Interpretive Data No reference range established. Current interpretive data was last revised 2018. Albumin Creatinine Ratio, Ur 11 1 - 29 mg/g [facility] Urine 01/09/2025 12:3 0 PM CDT 01/09/2025 1:18 PM CDT [facility] LAB URINE ORDERABLE S Final Result Performing Organization Address [facility] Co de Phone Number [facility] Department [place] [address] * (ABNORMAL) Lipid panel (01/09/2025 12:30 PM [...] 2018. Triglycerides 334(H) <=149 mg/dL [facility] Comment: Interpretive Data Ages < [...] 2018. HDL 75 >=40 mg/dL [facility] Comment: Interpretive Data Ages < [...] LDL, calculated 127 <=129 mg/dL [facility] Comment: Interpretive Data Ages < [...] 2024. Non-HDL Cholesterol 185 mg/dL [facility] Comment: Interpretive Data Ages < [...] last revised on 2018. Chol/HDL ratio 3 [facility] Blood 01/09/2025 12:3 0 PM CDT 01/09/2025 1:18 PM CDT Shirley Hicks PR LAB BLOOD ORDERABLE S Final Result [facility] Department [place] [address] * Screening Mammogram Bilateral W Vincenzo (01/09/2025 [...] CDT Shirley CHUN POINT OF CARE TEST ORDERABLES Final Result * Diabetic Eye Exam (11/10/2022) us Generic External Data Provider [facility] E Final Result * COLONOSCOPY (04/02/2022 9:28 AM CDT) Anatomical Region Laterality Modality Other Narrative Procedure Note Ad Camacho MD - 04/02/2022 9:28 AM CDT [facility] Patient Name: Walt Huitron Procedure Date: 04/02/2022 9:28 AM Date of : 1975 Admit Type: Outpatient Age: 46 Gender: Female Attending MD: Ad Camacho M.D. Room: [facility] ENDOSCOPY ROOM 2 Note Status: Finalized [...] scope was passed under direct vision. TheColonoscope [id number] was introduced through the anus and advanced [...] 9:28 AM Procedure Code(s): --- Professional --- 17566, Colonoscopy, flexible; with biopsy, single or multiple Diagnosis Code(s): --- Professional --- Z12.11, Encounter for screening for malignant neoplasm of colon D12.3, Benign neoplasm of transverse colon (hepatic flexure orsplenic flexure) D12.4, Benign neoplasm of descending colon D12.8, Benign neoplasm of rectum CPT copyright 2020 [employer]. All rights reserved. The codes documented in this report are preliminary and upon belt loop machine operator reviewmay be revised to meet current compliance requirements. Recognized by the [employer] for promoting quality in endoscopy us Ad Camacho MD ENDOSCOPY PROCEDURES Final Resul t * Diabetic Foot Exam (03/26/2021) Impressions Art Staley MA - 03/26/2021 In care everywhere us Historical Provider MD HEALTH MAINTENANCE Final Result from Last 3 Months or Most Recently Relevant to Health Maintenance Insurance [facility] H[facility]/PPO Address: [address] [address] [place] [address] [facility] [address] Advance Directives For more information, please contact: [phone] * Full Code (Latest Code Status on File) Date Activated Date Inactivated Comments 03/20/2025 7:48 AM 03/20/2025 1:42 PM * Full Code Date Activated Date Inactivated Comments 03/20/2025 7:48 AM 03/20/2025 7:48 AM * Full Code Date Activated Date Inactivated Comments 04/02/2022 9:27 AM 04/02/2022 4:47 PM * Full Code Date Activated Date Inactivated Comments 04/02/2022 9:27 AM 04/02/2022 9:27 AM Care Teams Graining Press Operator Relationship Specialty [place] [address] [facility] [address], [place] [address] PCP - General Internal Medicine 04/06/24 Ann Serrano MD Referring Physician Endocrinology Diabetes & Metabolism 06/08/20
--- OUTSIDE RECORDS SUMMARY | 2025-05-24 08:23 | XMS_ITS | Encounter Summary ---
Author Organization [facility] Address [address] [place] [address] Care Team Providers Care Diversity Manager Name Role Phone Tiffany Cox MD Primary Care Provider Unavailable Kishor Saleh MD Primary Care Provider Encounter Details Date Type Department Care Team (Late st Contact Info) Description 07/03/2023 Lab Requisition [facility] Lab [address] [place] [phone] [place] [address] [facility] [address] [place] [address] Social History Tobacco Use Types Packs/Day Years Used Date Smoking Tobacco: Never Assessed Comments Unknown Sex and Gender Information Value Date Recorded Sex Assigned at Not on file Legal Sex Female 4:50 AM SINGLE POINTED OPERATOR Gender Identity Not on file Sexual Orientation Not on file documented as of this encounter Plan of Treatment Not on file documented as of this encounter Visit Diagnoses Not on filedocumented in this encounter Additional Health Concerns Infection Onset Date Last Indicated Resolved Time COVID-19 Under Investigation 08/13/2024 08/13/2024 08/13/2024 11:30 PM SINGLE POINTED OPERATOR documented as of this encounter Care Teams Diversity Manager Relationship Specialty Start Date End Date Tiffany Cox MD PCP - General Internal Medicine 05/16/13 07/30/23 Kishor Saleh MD [address] [place] [address] DR [address] [place] [address] PCP - General Internal Medicine 07/31/23 documented as of this encounter
--- OUTSIDE RECORDS SUMMARY | 2025-05-24 08:23 | XMS_ITS | Encounter Summary ---
Author Organization [facility] Address [address] [facility] [place] [address] Care Team Providers Care Java Programmer Name Role Phone Tiffany Cox MD Primary Care Provider Unavailable Kishor Saleh MD Primary Care Provider Encounter Details Date Type Department Care Team (Late st Contact Info) Description 07/03/2023 Lab Requisition [facility] Lab [address] [place] [phone] [place] [address] [facility] [address] [place] [address] [place] [address] Social History Tobacco Use Types Packs/Day Years Used Date Smoking Tobacco: Never Assessed Comments Unknown Sex and Gender Information Value Date Recorded Sex Assigned at Not on file Legal Sex Female 4:50 AM PROOF CLERK Gender Identity Not on file Sexual Orientation Not on file documented as of this encounter Plan of Treatment Not on file documented as of this encounter Visit Diagnoses Not on filedocumented in this encounter Additional Health Concerns Infection Onset Date Last Indicated Resolved Time COVID-19 Under Investigation 08/13/2024 08/13/2024 08/13/2024 11:30 PM PROOF CLERK documented as of this encounter Care Teams Java Programmer Relationship Specialty Start Date End Date Tiffany Cox MD PCP - General Internal Medicine 05/16/13 07/30/23 Kishor Saleh MD [address] [place] [address] DR [address] [place] [address] PCP - General Internal Medicine 07/31/23 documented as of this encounter
--- OUTSIDE RECORDS SUMMARY | 2025-05-24 08:23 | XMS_ITS | Clinical Summary ---
Author Organization [email or web address] Address [address] [place] [address] Care Team Providers Care Bolt Maker Name Role Phone Kishor Saleh MD Primary Care Provider Source Comments [email or web address],non-owned Affiliates and Associated Physician Practices is amultiple site organization consisting of ambulatory clinics and hospital sitesin [place], [place], [place] and [place]. This disclosure is being madepursuant to the Care Everywhere program and may not contain all information available regarding this patient. Last updated 18.[email or web address] Allergies Active Allergy Reactions Criticality Noted Date [...] fluticasone propionate (Flonase) 50 MCG/ACT nasal spray [place] 2 (two) sprays into each nostril once [...] vitamin D, ergocalciferol , (Drisdol) 1.25 MG (17251 UT) capsule Take 1 (one) capsule by [...] any time in the past 12 m [facility], were you homeless or living in a snf (including now)? No 08/15/2024 Comments Unknown Sex and Gender Information Value Date Recorded Sex Assigned at Not on file Legal Sex Female 4:50 AM AUTOMOTIVE TIRE WORKER Gender Identity Not on file Sexual Orientation Not on file Last Filed Vital Signs Vital Sign Reading Time Taken Comments Blood Pressure 154/92 08/18/2024 12:25 PM AUTOMOTIVE TIRE WORKER Pulse 102 08/18/2024 12:25 PM AUTOMOTIVE TIRE WORKER Temperature 36.7 C (98.1 F) 08/18/2024 12:25 PM AUTOMOTIVE TIRE WORKER Respiratory Rate 23 08/18/2024 12:2 5 PM AUTOMOTIVE TIRE WORKER Oxygen Saturation 90% 08/18/2024 12: 25 PM AUTOMOTIVE TIRE WORKER Inhaled Oxygen Concentration 21% 08/18/2024 2 :00 PM AUTOMOTIVE TIRE WORKER Weight 132.6 kg (292 lb 4.8 oz) 08/18/2024 4:00 AM AUTOMOTIVE TIRE WORKER Height 167.6 cm (5' 6) 08/13/2024 5:14 PM AUTOMOTIVE TIRE WORKER Body Mass Index 47.18 08/13/2024 5:14 PM AUTOMOTIVE TIRE WORKER Plan of Treatment Health Maintenance Due [...] 2 - PCV) 1995 PAP SMEAR 1997 DEPRESSION SCREENING 08/03/2024 DIABETES - URINE PROTEIN SCREENING 08/03/2024 DIABETES RETINOPATHY SCREENING 08/14/2024 DIABETES-FOOT EXAM WITH MONOFILAMENT 08/14/2024 DIABETES-HGB A1C 02/11/2025 08/14/2024, 06/2024, 11/17/2023 COVID-19 VACCINE ( season) 2025 05/13/2023, 05/23/2022, 06/20/2021, Additional history exists INFLUENZA VACCINE (#1) 2025 , 05/23/2022, 05/16/2021, [...] (CALCIUM TOTAL) AM Draw 08/17/2024 4:16 AM AUTOMOTIVE TIRE WORKER HEMOGLOBIN A1C Routine 08/14/2024 3:27 AM AUTOMOTIVE TIRE WORKER from Last 3 Months or Most Recently Relevant to Health Maintenance Results * (ABNORMAL) BASIC METABOLIC PANEL (CALCIUM TOTAL) (08/17/2024 4:16 AM AUTOMOTIVE TIRE WORKER) Glucose 139(H) 70 - 99 mg/dL 08/17/2024 4:53 AM AUTOMOTIVE TIRE WORKER [facility] Sodium 140 136 - 145 mmol/L 08/17/2024 4:53 AM AUTOMOTIVE TIRE WORKER [facility] Potassium 3.5 3.5 - 5.1 mmol/L 08/17/2024 4:53 AM AUTOMOTIVE TIRE WORKER [facility] Chloride 108(H) 98 - 107 mmol/L 08/17/2024 4:53 AM AUTOMOTIVE TIRE WORKER [facility] CO2 24 22 - 29 mmol/L 08/17/2024 4:53 AM AUTOMOTIVE TIRE WORKER [facility] Calcium 8.9 8.4 - 10.4 mg/dL 08/17/2024 4:53 AM [facility] Anion Gap 8 6 - 16 mmol/L 08/17/2024 4:53 AM [facility] BUN 15 5.3 - 18.7 mg/dL 08/17/2024 4:53 AM [facility] Creatinine 0.65 0.57 - 1.11 mg/dL 08/17/2024 4:53 AM [facility] eGFR by CKD-EPI >90 >=90 mL/min/1.7 3 m2 08/17/2024 4:53 AM [facility] Blood BLOOD SPECIMEN / Unknown Venipuncture / Unknown 08/17/2024 4:16 AM AUTOMOTIVE TIRE WORKER 08/17/2024 4:30 AM [facility] Alexus Ramirez MD LAB - CHEMISTRY ORDERABLES Final Result [facility] [address] [place] [address] * (ABNORMAL) HEMOGLOBIN A1C (08/14/2024 3:27 AM [facility]) Hemoglobin A1c 10.1(H) <5.7 % 08/14/2024 3:48 AM [facility] Estimated Average Glucose 243 mg/dL 08/14/2024 3:48 AM [facility] Blood BLOOD SPECIMEN / Unknown Venipuncture / Unknown 08/14/2024 3:27 AM AUTOMOTIVE TIRE WORKER 08/14/2024 3:37 AM [facility] Narrative [facility] - 08/14/2024 3:48 AM [facility] HbA1c Interpretation: Normal: < 5.7% Pre-diabetes: 5.7-6.4% [...] MD LAB - CHEMISTRY ORDERABLES Final Result [facility] [address] [place] [address] from Last 3 Months or Most Recently Relevant to Health Maintenance Insurance [facility] [place] [address] [facility] [place] [address] Advance Directives * Full Code (Latest Code Status on File) Date Activated Date Inactivated Comments 08/13/2024 3:54 PM 08/18/2024 6:24 PM Care Teams Bolt Maker Relationship Specialty Start Date End Date Kishor Saleh MD [address] [facility] [address] [address] PCP - General Internal Medicine 07/31/23
--- OUTSIDE RECORDS SUMMARY | 2025-05-24 08:23 | XMS_ITS | Encounter Summary ---
Author Organization [facility] Address [address] [place] [address] Care Team Providers Care Apartment Leasing Agent Name Role Phone Tiffany Cox MD Primary Care Provider Unavailable Kishor Saleh MD Primary Care Provider [phone] Encounter Details Date Type Department Care Team (Late st Contact Info) Description 07/03/2023 Lab Requisition [facility] - DermPath Lab [address] [place] [address] [place] [address] [address] Social History Tobacco Use Types Packs/Day Years Used Date Smoking Tobacco: Never Assessed Comments Unknown Sex and Gender Information Value Date Recorded Sex Assigned at Not on file Legal Sex Female 4:50 AM TELEVISION SERVICE ENGINEER Gender Identity Not on file Sexual Orientation Not on file documented as of this encounter Plan of Treatment Not on file documented as of this encounter Procedures Procedure Name Priority Date/Time Associated Diagnosis Comments IMMUNOFLUORESCENT STUDY DERM Routine 07/01/2023 3:33 AM TELEVISION SERVICE ENGINEER documented in this encounter Results * IMMUNOFLUORESCENT STUDY DERM (07/01/2023 3:33 AM TELEVISION SERVICE ENGINEER) Case Report Dermatopathol ogy Report Case: [id number] Authorizing Provider: Kendrick Christopher MD Collected: 07/01/2023 03:33 AM Ordering Location: [facility] Derm[facility] Lab Received: 07/03/2023 12:13 PM Pathologist: Bella Schwab MD Specimen: Skin, right superior han 3:46 PM [facility] Final Diagnosis Specimen A. SKIN, right superior han: COLLOID BODIES (L98.9) (see microscopic description) (see fixed tissue results) 3 3:46 PM [facility] at 1546 TELEVISION SERVICE ENGINEER Direct Immunofluorescence Report - Specimen A Specimen A IgA IgM IgG C3 CollV Fibrinogen Epidermis Negative Negative Negative Negative Negative Negative Basement Membrane Negative Negative Negative Negative 2+ Negative Vessels Negative Negative Negative Negative 2+ Negative Interstitium Colloid Colloid Colloid Negative Negative Non specific 3 3:46 PM [facility] Clinical History Rash; R/O Leukocytoclas tic Vasculitis, Livedo Reticularis 3 3:46 PM [facility] Gross Description Specimen A: Received is one Jatinder's media filled container labeled with the patient's name and designated right superior han. The specimen consists of a punch biopsy measuring 5x4x4 mm. The specimen is submitted in whole for direct immunofluores cence testing. 3:46 PM [facility] Microscopic Description Specimen A. [...] See fixed tissue results. 3 3:46 PM [facility] Disclaimer An external and internal positive and negative controls are appropriate for the histochemical , immunohistoch emical and immunofluores cence stain(s) in this case (if any), except where stated explicitly. The performance characteristi cs of the stain(s) cited in this report were developed and its performance characteristi c determined by the Dermatopathol ogy Laboratory at [facility], directed by Dr. Arnol Perea. These tests need not be, and therefore are not, approved by the [place] Food and Drug Administratio n. The tests are used for clinical purposes. Billing Codes Specimen Charges Stain Charges 25849 [id number] 1 1 1 1 1 1 3 3:46 PM TELEVISION SERVICE ENGINEER DERMATOPATHOLOGY LABORATORY Embedded Images 3 3:46 PM TELEVISION SERVICE ENGINEER DERMATOPATHOLOGY LABORATORY Pathology/Cytolo gy TISSUE SPECIMEN FROM SKIN / Unknown 07/01/2023 3:33 AM TELEVISION SERVICE ENGINEER 07/03/2023 12:13 PM TELEVISION SERVICE ENGINEER Kendrick Christopher MD LAB - PATHOLOGY/CYTOLOGY O RDERABLES Final Result DERMATOPATHOLOGY LABORATORY [facility] - Department of Dermatology [facility] Medicine [address] [place] [address], [address] [phone] documented in this encounter Visit Diagnoses Not on filedocumented in this encounter Additional Health Concerns Infection Onset Date Last Indicated Resolved Time COVID-19 Under Investigation 08/13/2024 08/13/2024 08/13/2024 11:30 PM TELEVISION SERVICE ENGINEER documented as of this encounter Care Teams Apartment Leasing Agent Relationship Specialty Start Date End Date Tiffany Cox MD PCP - General Internal Medicine 05/16/13 07/30/23 Kishor Saleh MD [address] [place] [address] [address] [place] [address] [place] [address] PCP - General Internal Medicine 07/31/23 documented as of this encounter
--- OUTSIDE RECORDS SUMMARY | 2025-05-24 09:45 | XMS_ITS | Encounter Summary ---
Author Organization [facility] Health Address [address] [place] [address] Care Team Providers Care Podiatric Foot And Ankle Specialist Name Role Phone Tiffany Cox MD Primary Care Provider Unavailable Kishor Saleh MD Primary Care Provider Encounter Details Date Type Department Care Team (Late st Contact Info) Description 07/03/2023 Lab Requisition [facility] [address] [place] [phone] [place] [address] [facility] [address] [place] [address] Social History Tobacco Use Types Packs/Day Years Used Date Smoking Tobacco: Never Assessed Comments Unknown Sex and Gender Information Value Date Recorded Sex Assigned at Not on file Legal Sex Female 4:50 AM PUBLIC AFFAIRS SPECIALIST Gender Identity Not on file Sexual Orientation Not on file documented as of this encounter Plan of Treatment Not on file documented as of this encounter Visit Diagnoses Not on filedocumented in this encounter Additional Health Concerns Infection Onset Date Last Indicated Resolved Time COVID-19 Under Investigation 08/13/2024 08/13/2024 08/13/2024 11:30 PM PUBLIC AFFAIRS SPECIALIST documented as of this encounter Care Teams Podiatric Foot And Ankle Specialist Relationship Specialty Start Date End Date Tiffany Cox MD PCP - General Internal Medicine 05/16/13 07/30/23 Kishor Saleh MD [address] [place] [address] [address] [place] [address] PCP - General Internal Medicine 07/31/23 documented as of this encounter
--- OUTSIDE RECORDS SUMMARY | 2025-05-24 09:45 | XMS_ITS | Clinical Summary ---
Author Organization [facility] Address [address] [place] [address] Phone Care Team Providers Care Pony Cylinder Press Operator Name Role Phone Masoud Hayes MD Primary Care Provider [phone] Allergies Active Allergy Reactions Criticality Noted Date [...] mouth daily. 30 Tablet 08/13/2022 2:47 PM WATER JET OPERATOR 3 Active amLODIPine (NORVASC) 2.5 mg tablet Take 1 Tablet (2.5 mg) by mouth daily in the morning. 90 Tablet 05/29/2023 5:55 PM CDT 3 Active cyclobenzaprine (FLEXERIL) 5 mg Tablet TAKE 1-2 TABLETS BY MOUTH NIGHTLY TO REDUCE MUSCLE CRAMPS 60 Tablet 3 07/10/2023 3:38 PM WATER JET OPERATOR 3 Active hydroxychloroqui ne (PLAQUENIL) 200 mg tablet TAKE 2 TABLETS BY MOUTH ONCE DAILY 60 Tablet 3 07/10/2023 3:38 PM WATER JET OPERATOR 3 Active mycophenolate mofetil (CELLCEPT) 500 mg tablet TAKE 3 TABLETS BY MOUTH TWICE DAILY 180 Tablet 4 07/10/2023 3:38 PM WATER JET OPERATOR 3 Active insulin glargine (LANTUS) 100 [...] for pain 30 Tablet 07/13/2024 12:19 PM WATER JET OPERATOR 4 Active methylPREDNISolo ne (Medrol, Marvel,) 4 [...] 3 Active fluticasone propionate (FLONASE) 50 mcg/spray [place], Suspension nasal inhaler Administer 2 Sprays in each nostril 1 time daily as needed. 3 Active folic acid (FOLVITE) 1 mg tablet 4 Active gabapentin (NEURONTIN) 300 mg capsule 4 Active glucagon (BAQSIMI) 3 mg/spray [place], Non-Aerosol Administer 1 [place] in each nostril. 4 Active insulin glargine-yfgn [...] daily. 120 Tablet 3 09/11/2024 3:51 PM WATER JET OPERATOR 4 Active tirzepatide (Mounjaro) 10 mg/0.5 mL Pen Injector Inject 10 mg under the skin every 7 days 2 mL 3 09/29/2024 4:41 PM WATER JET OPERATOR 4 Active isosorbide dinitrate (ISORDIL) 5 mg [...] to 4 times dialy. 5 Active Insulin Esko, Disposable, 32 gauge x /32 Needle Use to inject insulin up as directed to 5 times daily. 4 Active lancets 33 gauge Use to check blood sugar as directed up to 4 times daily. 4 Active Blood-Glucose Sensor (Mir Tesen G7 Sensor) Device Use for continuous glucose [...] migh t be different from the original. Transaction Manager: Dr. 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 See individual assays for performing site location. CLINICAL INFORMATION [facility] Comment:None given LAST MENSTRUAL PERIOD [facility] Comment:10/02/2023 PREV PAP: [facility] Comment:NONE GIVEN PREV BX: [facility] Comment:NONE GIVEN SOURCE [facility] Comment:Endocervix ADEQUACY: [facility] Comment: Satisfactory for evaluation. Endocervical/transformation zone component absent. PAP INTERP [facility] Comment: Cytology Results: Negative for intraepithelial lesion or malignancy. COMMENT (PAP TEST) Q [facility] Ashley Comment: This Pap test has been evaluated with computer assisted technology. GRAIN MILL PRODUCTS INSPECTOR: Ni Ramirez Comment: MEF, CT(ASCP) CT screening location: [place] [address] [place] [address] EXPLANATORY NOTE Que [facility] Medical[facility]ikki Ramirez Comment: EXPLANATORY NOTE: The Pap is [...] information. HPV E6/E7 Not Detected Not Detected [facility] Comment: Methodology: Transport Conductor-Mediated Amplification This assay detects E6/E7 viral messenger RNA (mRNA) from 14 high-risk HPV types (16,18,31,33,35,39,45,51,52,56,58,59,66,68). Cervical sources are required for HPV testing. If a vaginal source from a patient who has had a total hysterectomy with removal of cervix was submitted, please contact the testing laboratory for alternative testing options. For additional information, please refer to http://education.[facility]/faq/GZW223d4 (This link if provided for information/ educational purposes only.) Test Performed at: [facility] [id number] [phone] Torin GUZMAN Genital SWAB OF ENDOCERVIX / Unknown 05/17/2024 4:26 PM CDT 05/18/2024 3:48 AM CDT us Kendrick Teague MD PATHOLOGY/CYTOLOGY ORDERABLE S Final Result [facility] [phone] [facility] [id number] [phone] from Last 3 Months or Most Recently Relevant to Health Maintenance Insurance [employer] [id number] RX [employer] RX Member Subscriber Plan / Payer (Ef fective 2023-Present) Name:Walt Huitron Relation to Subscriber:Self Name:Walt Huitron Subscriber ID:Not on file Payer ID:Not on file Group ID:[id number] Type:RX Commercial Address: [address] [employer] (INTERNAL) [facility] Care Teams Pony Cylinder Press Operator Relationship Specialty Start Date End Date Masoud Hayes MD PCP - General Internal Medicine 03/08/12
--- OUTSIDE RECORDS SUMMARY | 2025-05-24 09:45 | XMS_ITS | Clinical Summary ---
Author Organization [email or web address] Address [address] [place] [address] Care Team Providers Care Sheet Metal Lay Out Worker Name Role Phone Kishor Saleh MD Primary Care Provider Source Comments [email or web address],non-owned Affiliates and Associated Physician Practices is amultiple site organization consisting of ambulatory clinics and hospital sitesin [place], [place]. This disclosure is being madepursuant to the Care Everywhere program and may not contain all information available regarding this patient. Last updated 18.[email or web address] Allergies Active Allergy Reactions Criticality Noted Date [...] fluticasone propionate (Flonase) 50 MCG/ACT nasal spray Adel 2 (two) sprays into each nostril once [...] vitamin D, ergocalciferol , (Drisdol) 1.25 MG (62846 UT) capsule Take 1 (one) capsule by [...] any time in the past 12 m [facility], were you homeless or living in a nursing home (including now)? No 08/15/2024 Comments Unknown Sex and Gender Information Value Date Recorded Sex Assigned at Not on file Legal Sex Female 4:50 AM NON DESTRUCTIVE TESTING INSPECTOR Gender Identity Not on file Sexual Orientation Not on file Last Filed Vital Signs Vital Sign Reading Time Taken Comments Blood Pressure 154/92 08/18/2024 12:25 PM NON DESTRUCTIVE TESTING INSPECTOR Pulse 102 08/18/2024 12:25 PM NON DESTRUCTIVE TESTING INSPECTOR Temperature 36.7 C (98.1 F) 08/18/2024 12:25 PM NON DESTRUCTIVE TESTING INSPECTOR Respiratory Rate 23 08/18/2024 12:2 5 PM NON DESTRUCTIVE TESTING INSPECTOR Oxygen Saturation 90% 08/18/2024 12: 25 PM NON DESTRUCTIVE TESTING INSPECTOR Inhaled Oxygen Concentration 21% 08/18/2024 2 :00 PM NON DESTRUCTIVE TESTING INSPECTOR Weight 132.6 kg (292 lb 4.8 oz) 08/18/2024 4:00 AM NON DESTRUCTIVE TESTING INSPECTOR Height 167.6 cm (5' 6) 08/13/2024 5:14 PM NON DESTRUCTIVE TESTING INSPECTOR Body Mass Index 47.18 08/13/2024 5:14 PM NON DESTRUCTIVE TESTING INSPECTOR Plan of Treatment Health Maintenance Due [...] TOTAL) AM Draw 08/17/2024 4:16 AM NON DESTRUCTIVE TESTING INSPECTOR HEMOGLOBIN A1C Routine 08/14/2024 3:27 AM NON DESTRUCTIVE TESTING INSPECTOR from Last 3 Months or Most Recently Relevant to Health Maintenance Results * (ABNORMAL) BASIC METABOLIC PANEL (CALCIUM TOTAL) (08/17/2024 4:16 AM NON DESTRUCTIVE TESTING INSPECTOR) Glucose 139(H) 70 - 99 mg/dL 08/17/2024 4:53 AM NON DESTRUCTIVE TESTING INSPECTOR [facility] Sodium 140 136 - 145 mmol/L 08/17/2024 4:53 AM NON DESTRUCTIVE TESTING INSPECTOR [facility] Potassium 3.5 3.5 - 5.1 mmol/L 08/17/2024 4:53 AM NON DESTRUCTIVE TESTING INSPECTOR [facility] Chloride 108(H) 98 - 107 mmol/L 08/17/2024 4:53 AM NON DESTRUCTIVE TESTING INSPECTOR [facility] CO2 24 22 - 29 mmol/L 08/17/2024 4:53 AM NON DESTRUCTIVE TESTING INSPECTOR [facility] Calcium 8.9 8.4 - 10.4 mg/dL 08/17/2024 4:53 AM [facility] Anion Gap 8 6 - 16 mmol/L 08/17/2024 4:53 AM [facility] BUN 15 5.3 - 18.7 mg/dL 08/17/2024 4:53 AM [facility] Creatinine 0.65 0.57 - 1.11 mg/dL 08/17/2024 4:53 AM [facility] eGFR by CKD-EPI >90 >=90 mL/min/1.7 3 m2 08/17/2024 4:53 AM [facility] Blood BLOOD SPECIMEN / Unknown Venipuncture / Unknown 08/17/2024 4:16 AM NON DESTRUCTIVE TESTING INSPECTOR 08/17/2024 4:30 AM [facility] Alexus Ramirez MD LAB - CHEMISTRY ORDERABLES Final Result [facility] [address] [place] [address] * (ABNORMAL) HEMOGLOBIN A1C (08/14/2024 3:27 AM [facility]) Hemoglobin A1c 10.1(H) <5.7 % 08/14/2024 3:48 AM [facility] Estimated Average Glucose 243 mg/dL 08/14/2024 3:48 AM [facility] Blood BLOOD SPECIMEN / Unknown Venipuncture / Unknown 08/14/2024 3:27 AM NON DESTRUCTIVE TESTING INSPECTOR 08/14/2024 3:37 AM [facility] Narrative [facility] - 08/14/2024 3:48 AM [facility] HbA1c Interpretation: Normal: < 5.7% Pre-diabetes: [...] Result [facility] [address] [place] [address] from Last 3 Months or Most Recently Relevant to Health Maintenance Insurance [facility] Advance Directives * Full Code (Latest Code Status on File) Date Activated Date Inactivated Comments 08/13/2024 3:54 PM 08/18/2024 6:24 PM Care Teams Sheet Metal Lay Out Worker Relationship Specialty Start Date End Date Kishor Saleh MD [address] [facility] [address] [address] PCP - General Internal Medicine 07/31/23
--- OUTSIDE RECORDS SUMMARY | 2025-05-24 09:45 | XMS_ITS | Encounter Summary ---
Author Organization [facility] Address [address] [facility] [place] [address] Care Team Providers Care Healthcare Economics Consultant Name Role Phone Tiffany Cox MD Primary Care Provider Unavailable Kishor Saleh MD Primary Care Provider [phone] Encounter Details Date Type Department Care Team (Late st Contact Info) Description 07/03/2023 Lab Requisition [facility] [address] [place] [address] [place] [address] [address] Social History Tobacco Use Types Packs/Day Years Used Date Smoking Tobacco: Never Assessed Comments Unknown Sex and Gender Information Value Date Recorded Sex Assigned at Not on file Legal Sex Female 4:50 AM STATION BAGGAGE PORTER Gender Identity Not on file Sexual Orientation Not on file documented as of this encounter Plan of Treatment Not on file documented as of this encounter Procedures Procedure Name Priority Date/Time Associated Diagnosis Comments IMMUNOFLUORESCENT STUDY DERM Routine 07/01/2023 3:33 AM STATION BAGGAGE PORTER documented in this encounter Results * IMMUNOFLUORESCENT STUDY DERM (07/01/2023 3:33 AM STATION BAGGAGE PORTER) Case Report Dermatopathol ogy Report Case: [id number] Authorizing Provider: Kendrick Christopher MD Collected: 07/01/2023 03:33 AM Ordering Location: [facility] Received: 07/03/2023 12:13 PM Pathologist: Bella Schwab MD Specimen: Skin, right superior han 3:46 PM [facility] Final Diagnosis Specimen A. SKIN, right superior han: COLLOID BODIES (L98.9) (see microscopic description) (see fixed tissue results) 3 3:46 PM [facility] DERMATOPATH[facility] at [address] Direct Immunofluorescence Report - Specimen A Specimen A IgA IgM IgG C3 CollV Fibrinogen Epidermis Negative Negative Negative Negative Negative Negative Basement Membrane Negative Negative Negative Negative 2+ Negative Vessels Negative Negative Negative Negative 2+ Negative Interstitium Colloid Colloid Colloid Negative Negative Non specific 3 3:46 PM [facility] Clinical History Rash; R/O Leukocytoclas tic Vasculitis, Livedo Reticularis 3 3:46 PM [facility]ERMATOPATHOLOGY [facility] Gross Description Specimen A: Received is one Jatinder's media filled container labeled with the patient's name and designated right superior han. The specimen consists of a punch biopsy measuring 5x4x4 mm. The specimen is submitted in whole for direct immunofluores cence testing. 3:46 PM [facility] Microscopic Description Specimen [...] See fixed tissue results. 3 3:46 PM [facility] Disclaimer An external [...] purposes. Billing Codes Specimen Charges Stain Charges 77396 [id number] [id number] [id number] 1 1 1 1 1 1 3 3:46 PM [facility] Embedded Images 3 3:46 PM [facility] Pathology/Cytolo gy TISSUE SPECIMEN FROM SKIN / Unknown 07/01/2023 3:33 AM STATION BAGGAGE PORTER 07/03/2023 12:13 PM [facility]AGGAGE PORTER Kendrick Christopher MD LAB - PATHOLOGY/CYTOLOGY O RDERABLES Final Result [facility]OPATHOLOGY LABORATORY [facility] - Department of Dermatology [facility] Medicine [address] [place] [address], [address] [phone] documented in this encounter Visit Diagnoses Not on filedocumented in this encounter Additional Health Concerns Infection Onset Date Last Indicated Resolved Time COVID-19 Under Investigation 08/13/2024 08/13/2024 08/13/2024 11:30 PM STATION BAGGAGE PORTER documented as of this encounter Care Teams Healthcare Economics Consultant Relationship Specialty Start Date End Date Tiffany Cox MD PCP - General Internal Medicine 05/16/13 07/30/23 Kishor Saleh MD [address] [place] [address] DR [address] [place] [address] PCP - General Internal Medicine 07/31/23 documented as of this encounter
--- OUTSIDE RECORDS SUMMARY | 2025-05-24 09:45 | XMS_ITS | Encounter Summary ---
Author Organization [facility] Address [address] [place] [address] Care Team Providers Care Newspaper Photojournalist Name Role Phone Tiffany Cox MD Primary Care Provider Unavailable Kishor Saleh MD Primary Care Provider [phone] Encounter Details Date Type Department Care Team (Late st Contact Info) Description 07/03/2023 Lab Requisition [facility] Lab [address] [place] [address] [place] [address] [address] Social History Tobacco Use Types Packs/Day Years Used Date Smoking Tobacco: Never Assessed Comments Unknown Sex and Gender Information Value Date Recorded Sex Assigned at Not on file Legal Sex Female 4:50 AM CHUCK BONER Gender Identity Not on file Sexual Orientation Not on file documented as of this encounter Plan of Treatment Not on file documented as of this encounter Procedures Procedure Name Priority Date/Time Associated Diagnosis Comments DERMATOPATHOLOGY Routine 07/01/2023 3:33 AM CHUCK BONER documented in this encounter Results * DERMATOPATHOLOGY (07/01/2023 3:33 AM CHUCK BONER) Case Report Dermatopathology Report Case: [id number] Authorizing Provider: Kendrick Christopher MD Collected: 07/01/2023 03:33 AM Ordering Location: [facility] Derm[facility] Received: 07/03/2023 12:12 PM Pathologist: Bella Schwab MD Specimen: Skin, right inferior knee 3:45 PM [facility] Final Diagnosis Specimen A. SKIN, right inferior knee: STASIS DERMATITIS (L30.8) DERMAL FIBROSIS (L90.5) (see microscopic description) 3 3:45 PM [facility] DERMATOPATHOLOGY LABORATORY at [address] Clinical History Rash; R/O Leukocytoclastic Vasculitis, Livedo Reticularis 3 3:45 PM [facility] DERMATOPATHOLOGY LABORATORY Gross Description Specimen A: Received is one formalin filled container labeled with the patient's name and designated right inferior knee. The specimen consists of a punch biopsy measuring 6x5x6 mm. Jar 0. 3:45 PM [facility] [...] sections were obtained and reviewed. 3:45 PM [facility] DERMATOPATHOLOGY LABORATORY Disclaimer An external and internal positive and negative controls are appropriate for the histochemical, immunohistochemical and immunofluorescence stain(s) in this case (if any), except where stated explicitly. The performance characteristics of the stain(s) cited in this report were developed and its performance characteristic determined by the Dermatopathology Laboratory at [facility], directed by Dr. Arnol Perea. These tests need not be, and therefore are not, approved by the [place] Food and Drug Administration. The tests are used for clinical purposes. Billing Codes Specimen Charges Stain Charges 48429 1 [id number] 1 3 3:45 PM [facility] DERMATOPATHOLOGY LABORATORY Embedded Images 3 3:45 PM [facility] DERMATOPATHOLOGY LAB[facility]ORY Pathology/Cytolo gy TISSUE SPECIMEN FROM SKIN / Unknown 07/01/2023 3:33 AM CHUCK BONER 07/03/2023 12:12 PM CHUCK BONER Kendrick Christopher MD LAB - PATHOLOGY/CYTOLOGY O RDERABLES Final Result DERMATOPATHOLOGY LABORATORY [facility] - Department of Dermatology [facility] Medicine [address] [place] [address], [address] [phone] documented in this encounter Visit Diagnoses Not on filedocumented in this encounter Additional Health Concerns Infection Onset Date Last Indicated Resolved Time COVID-19 Under Investigation 08/13/2024 08/13/2024 08/13/2024 11:30 PM CHUCK BONER documented as of this encounter Care Teams Newspaper Photojournalist Relationship Specialty Start Date End Date Tiffany Cox MD PCP - General Internal Medicine 05/16/13 07/30/23 Kishor Saleh MD [address] [place] [address] DR [address] [place] [address] PCP - General Internal Medicine 07/31/23 documented as of this encounter
--- OUTSIDE RECORDS SUMMARY | 2025-05-24 09:45 | XMS_ITS | Encounter Summary ---
Author Organization [facility] Health Address [address] [place] [address] Care Team Providers Care Ammonia Box Operator Name Role Phone Tiffany Cox MD Primary Care Provider Unavailable Kishor Saleh MD Primary Care Provider Encounter Details Date Type Department Care Team (Late st Contact Info) Description 07/03/2023 Lab Requisition [facility] [address] [place] [phone] [place] [address] [facility] [address] [place] [address] Social History Tobacco Use Types Packs/Day Years Used Date Smoking Tobacco: Never Assessed Comments Unknown Sex and Gender Information Value Date Recorded Sex Assigned at Not on file Legal Sex Female 4:50 AM MACHINE HEEL SEAT FITTER Gender Identity Not on file Sexual Orientation Not on file documented as of this encounter Plan of Treatment Not on file documented as of this encounter Visit Diagnoses Not on filedocumented in this encounter Additional Health Concerns Infection Onset Date Last Indicated Resolved Time COVID-19 Under Investigation 08/13/2024 08/13/2024 08/13/2024 11:30 PM MACHINE HEEL SEAT FITTER documented as of this encounter Care Teams Ammonia Box Operator Relationship Specialty Start Date End Date Tiffany Cox MD PCP - General Internal Medicine 05/16/13 07/30/23 Kishor Saleh MD [address] [place] [address] [address] [place] [address] PCP - General Internal Medicine 07/31/23 documented as of this encounter
--- OUTSIDE RECORDS SUMMARY | 2025-05-24 09:45 | XMS_ITS | Encounter Summary ---
Author Organization [facility] Health Address [address] [place] [address] Care Team Providers Care Manager Activities Name Role Phone Tiffany Cox MD Primary Care Provider Unavailable Kishor Saleh MD Primary Care Provider Encounter Details Date Type Department Care Team (Late st Contact Info) Description 07/03/2023 Lab Requisition [facility] [address] [place] [phone] [place] [address] [facility] [address] [place] [address] Social History Tobacco Use Types Packs/Day Years Used Date Smoking Tobacco: Never Assessed Comments Unknown Sex and Gender Information Value Date Recorded Sex Assigned at Not on file Legal Sex Female 4:50 AM LAB REP Gender Identity Not on file Sexual Orientation Not on file documented as of this encounter Plan of Treatment Not on file documented as of this encounter Visit Diagnoses Not on filedocumented in this encounter Additional Health Concerns Infection Onset Date Last Indicated Resolved Time COVID-19 Under Investigation 08/13/2024 08/13/2024 08/13/2024 11:30 PM LAB REP documented as of this encounter Care Teams Manager Activities Relationship Specialty Start Date End Date Tiffany Cox MD PCP - General Internal Medicine 05/16/13 07/30/23 Kishor Saleh MD [address] [place] [address] [address] [place] [address] PCP - General Internal Medicine 07/31/23 documented as of this encounter
--- NOTE | 2025-05-24 10:20 | PC.NURSE ---
Per EDP blood cultures are not needed prior to starting antibiotic
[2025-05-24 10:21] LABS: Hematocrit 35.7 % (37.0-47.0); Hemoglobin 11.2 g/dL (12.0-15.0); Immature Granulocyte Percent A 1.4 % (0-0.5); Lymphocytes Absolute Auto 0.74 K/mm3 (0.9-3.2); Mean Corpuscular HGB Conc 31.4 g/dl (32-36); Mean Corpuscular Hemoglobin 28.9 pg (26-34); Mean Corpuscular Volume 92.0 fl (80-100); Nucleated Red Blood Cells Absolute Auto 0.000 K/mm3 (0.0-0.012); Nucleated Red Blood Cells Perc 0.0 % (0.0-0.2); Platelet Count Result 279 k/mm3 (150-375); Red Blood Count 3.88 M/mm3 (4.2-5.4); White Blood Count 15.2 K/mm3 (4.5-10.0)
[2025-05-24] MEDS: KETOROLAC 15 MG/ML VIAL (*BKC) IV PUSH (10:27)
[2025-05-24] MEDS: LACTATED RINGERS 1,000 ML 999 ML IV CONT (10:27)
[2025-05-24] MEDS: ceFAZolin 2 GM in SODIUM CHLORIDE 0.9% IV 50 ML 100 ML IVPB (10:28)
--- NOTE | 2025-05-24 10:34 | ED.GENADULT ---
HPI - General Adult General Chief complaint: Extremity Problem,Nontraumatic Stated complaint: Lower extremity edema Time Seen by Provider: 05/24/25 08:42 History of Present Illness HPI narrative: This is a 41-year-old female with history of chronic lower extremity edema from venous stasis, recurrent cellulitis and possible vasculitis presenting with a red swollen leg. Starting yesterday she notes that her right leg get swollen. This has occurred many times in the past and is unclear if there is a cellulitic infection versus a vasculitis flare. She is currently on 50 mg of prednisone which he has a higher dose than she is typically on. She does not have any systemic signs of illness such as fevers chills nausea vomiting or diarrhea. Related Data Home Medications ?Medication ?Instructions ?Recorded ?Confirmed ?Last Taken ?Type atorvastatin 20 mg tablet 20 mg PO HS 10/15/20 02/27/25 12/13/24 History loratadine 10 mg tablet (Claritin) 10 mg PO DAILY 10/15/20 02/27/25 05/24/23 History insulin lispro-aabc 100 unit/mL 1 sliding scale dose subcut AC 05/25/23 02/27/25 12/13/24 History subcutaneous pen (Lyumjev KwikPen U-100 Insulin) tirzepatide 5 mg/0.5 mL 10 mg subcut WEEKLY 05/25/23 02/27/25 12/10/24 History subcutaneous pen injector (Mounjaro) venlafaxine 150 mg 150 mg PO QAM 05/25/23 02/27/25 12/13/24 History capsule,extended release 24 hr albuterol sulfate 2.5 mg/3 mL 2.5 mg inhalation DAILY PRN 08/10/23 02/27/25 Unknown History (0.083 %) solution for nebulization Shortness Of Breath cetirizine 10 mg tablet (All Day 10 mg PO DAILY 08/10/23 02/27/25 02/27/25 History Allergy (cetirizine)) ergocalciferol (vitamin D2) 50,000 unit PO .COMPLEX 08/10/23 02/27/25 12/11/24 History prednisone 20 mg tablet 40 mg PO DAILY@0800 08/10/23 02/27/25 02/27/25 History cyclobenzaprine 10 mg tablet 10 mg PO HS 07/31/24 02/27/25 12/13/24 History folic acid 1 mg tablet 1 mg PO DAILY 07/31/24 02/27/25 12/13/24 History hydroxychloroquine 200 mg tablet 400 mg PO HS 07/31/24 02/27/25 12/13/24 History insulin glargine 100 unit/mL (3 45 unit subcut BID 07/31/24 02/27/25 02/27/25 History mL) subcutaneous pen (Lantus Solostar U-100 Insulin) lisinopril 20 mg tablet 40 mg PO HS 07/31/24 02/27/25 12/13/24 History pantoprazole 40 mg tablet,delayed 40 mg PO DAILY 07/31/24 02/27/25 12/13/24 History release acetaminophen 500 mg tablet 1,000 mg PO BID 09/23/24 02/27/25 12/13/24 History famotidine 20 mg tablet (Acid 20 mg PO HS 09/23/24 02/27/25 12/13/24 History Controller) magnesium 200 mg tablet 400 mg PO DAILY 09/23/24 02/27/25 12/13/24 History potassium 99 mg tablet 99 mg PO DAILY 09/23/24 02/27/25 02/27/25 History albuterol sulfate 90 mcg/actuation 2 puff inhalation Q8H PRN 10/03/24 02/27/25 Unknown History aerosol inhaler shortness of breath or wheezing gabapentin 300 mg capsule 300 mg PO TID 02/27/25 02/27/25 02/27/25 History Allergies Allergy/AdvReac Type Severity Reaction Status Date / Time amoxicillin AdvReac Unknown Nausea and Verified 05/24/25 08:24 Vomiting glipizide AdvReac Unknown NAUSEA AND Verified 05/24/25 08:24 VOMITING hydrocodone AdvReac Unknown Nausea and Verified 05/24/25 08:24 Vomiting metformin AdvReac Unknown Nausea and Verified 05/24/25 08:24 Vomiting PMFSH Past Medical History Medical History Immunocompromised Vasculitis Depression JEREMY on CPAP Hypertension Hypercholesterolemia Diabetes Surgical History Surgical History H/O arthroscopy H/O myomectomy Family History Family History Mother Diabetes mellitus Myocardial infarction Uterine cancer Father Cancer of blood vessel Sibling Diabetes mellitus Social History Social History Smoking status: Never smoker Second hand tobacco smoke exposure: Yes (not often) Alcohol intake: never Drinks per week: 1 Substance use: never Substance use type: does not use Do You Feel Safe in your Home?: Yes Lack of Transportation: No Lack of Food: Never True Current Housing: I Have Housing Concerned About Future Housing: No Difficulty Paying Gas/Electric Bills: No Difficulty Paying for Meds: No Currently Unemployed: No Education: High School Diploma/GED Difficulty w/ Childcare or Family Care: No Spiritual care concerns: No Exam Narrative: APPEARANCE: No apparent distress. Head: atraumatic. EYES: EOMI, NOSE: Atraumatic NECK: Trachea midline RESPIRATORY: No increased rate of breathing clear to auscultation CARDIOVASCULAR: RRR, no peripheral edema ABDOMINAL: Non-distended soft nontender MUSCULOSKELETAl: No obvious deformities NEURO: Alert. Moving 4/4 extremities SKIN:: Right leg is edematous, erythematous and warm to the touch. No blisters or fluctuant masses. Left leg is edematous but not erythematous and not warm to the touch. PSYCHIATRIC: Normal affect Course Vital Signs Vital signs: Vital Signs Temperature 97.4 F L 05/24/25 08:20 Pulse Rate 105 H 05/24/25 08:20 Respiratory Rate 18 05/24/25 08:20 Blood Pressure 154/87 H 05/24/25 08:20 Pulse Oximetry 100 05/24/25 08:20 Oxygen Delivery Room Air 05/24/25 08:20 Temperature 97.4 F L 05/24/25 08:20 Pulse Rate 97 05/24/25 11:50 Respiratory Rate 17 05/24/25 11:50 Blood Pressure 149/84 H 05/24/25 11:50 Pulse Oximetry 100 05/24/25 11:50 Oxygen Delivery Room Air 05/24/25 08:20 Medical Decision Making MDM Narrative Medical decision making narrative: -Course: 49 year old female with chronic edema lower extremities, recurrent cellulitis and possible vasculitis presenting with a red painful right leg. Review of the EMR shows that she has had similar presentations in the past so is unclear whether this is vasculitis versus cellulitis versus both. Our initial plan was to get some basic labs and then trial the patient on a course of outpatient antibiotics as her vasculitis only presents when her prednisone is tapered and shes currently on a higher dose. However her initial lactic was 3.1. Despite 1 L of LR it increased to 3.8. Her white count is elevated although this is hard to decipher due to her chronic steroid use. With her tachycardia, elevated white count and elevated lactic the patient technically meets sepsis criteria. Patient will be given a 30 cc/kilogram bolus of ideal body weight. She will be started on antibiotics for cellulitis. A ultrasound was obtained which was concerning for thrombus in her calf although imaging was sub-optimal due to body habitus. She will be started on Eliquis. Patient be admitted the hospital for further management of her cellulitis. -DDX includes but is not limited to: Cellulitis, vasculitis, DVT Vital Signs Vital Signs: Vital Signs Temperature 97.4 F L 05/24/25 08:20 Pulse Rate 105 H 05/24/25 08:20 Respiratory Rate 18 05/24/25 08:20 Blood Pressure 154/87 H 05/24/25 08:20 Pulse Oximetry 100 05/24/25 08:20 Oxygen Delivery Room Air 05/24/25 08:20 Temperature 97.4 F L 05/24/25 08:20 Pulse Rate 97 05/24/25 11:50 Respiratory Rate 17 05/24/25 11:50 Blood Pressure 149/84 H 05/24/25 11:50 Pulse Oximetry 100 05/24/25 11:50 Oxygen Delivery Room Air 05/24/25 08:20 Lab Data 05/24/25 10:15 05/24/25 10:15 Labs: Lab Results 05/24/25 05/24/25 Range/Units 10:15 13:00 WBC 15.2 H (4.5-10.0) K/mm3 RBC 3.88 L (4.2-5.4) M/mm3 Hgb 11.2 L (12.0-15.0) g/dL Hct 35.7 L (37.0-47.0) % MCV 92.0 (80-100) fl MCH 28.9 (26-34) pg MCHC 31.4 L (32-36) g/dl RDW 15.7 H (11.5-14.5) % Plt Count 279 (150-375) k/mm3 MPV 10.8 H (7.4-10.4) fl Immature Gran % (Auto) 1.4 H (0-0.5) % Neut % (Auto) 88.8 H (45.5-73.1) % Lymph % (Auto) 4.9 L (18.3-44.2) % [place] % (Auto) 4.6 (2.6-8.5) % Eos % (Auto) 0.1 (0-4.4) % Baso % (Auto) 0.2 (0.2-1.2) % Lymph # (Auto) 0.74 L (0.9-3.2) K/mm3 [place] # (Auto) 0.7 H (0.1-0.6) K/mm3 Eos # (Auto) 0.0 (0-0.3) K/mm3 Baso # (Auto) 0.0 (0.0-0.1) K/mm3 Abs Immat Gran (auto) 0.22 H (0.00-0.031) K/mm3 Absolute Neuts (auto) 13.5 H (1.3-6.7) K/mm3 Absolute Nucleated RBC 0.000 (0.0-0.012) K/mm3 Nucleated RBC % 0.0 (0.0-0.2) % Sodium 133 L (137-145) mmol/L Potassium 4.3 (3.4-5.0) mmol/L Chloride 96 L (98-107) mmol/L Carbon Dioxide 31 H (22-30) mmol/L Anion Gap 6 (4-12) mmol/L BUN 27 H D (7-17) mg/dL Creatinine 0.94 (0.7-1.0) mg/dL Estim Creat Clear Calc 97 ml/min Estimated GFR > 60 (59 - ) Glucose 406 H (65-110) mg/dL Lactic Acid 3.1 H 3.8 H (0.7-2.0) mmol/L Calcium 9.0 (8.4-10.2) mg/dL Total Bilirubin 0.4 (0.2-1.3) mg/dL AST 23 (14-36) U/L ALT 70 H (6-35) U/L Alkaline Phosphatase 86 (38-126) U/L Total Protein 6.2 L (6.3-8.2) g/dL Albumin 3.6 (3.5-5.1) g/dL Discharge Plan Discharge Clinical Impression: Sepsis, Cellulitis, Acute deep vein thrombosis of calf Patient Disposition: Still a Patient Condition: Stable Patient Language: Somali Prescriptions: No Action atorvastatin 20 mg tablet 20 mg PO HS loratadine [Claritin] 10 mg Tablet 10 mg PO DAILY venlafaxine 150 mg capsule,extended release 24hr 150 mg PO QAM Lyumjev KwikPen U-100 Insulin 100 unit/mL insulin pen 1 sliding scale dose SUBCUT AC Rx Instructions: For blood sugar of 150 or less administer 18 units for blood sugar per 25 points greater than 150 administer 1 unit per 25 over Mounjaro 5 mg/0.5 mL pen injector 10 mg SUBCUT WEEKLY Patient Comments: on Saturdays tramadol 50 mg Tablet 50 mg PO Q4H PRN (Reason: Severe pain) Qty: 15 0RF metoprolol tartrate 25 mg tablet 12.5 mg PO BID 30 Days Qty: 30 0RF famotidine 20 mg tablet 20 mg PO DAILY Qty: 30 0RF ondansetron 4 mg tablet,disintegrating 4 mg PO Q8H PRN (Reason: nausea and vomiting) Qty: 14 0RF albuterol sulfate 2.5 mg /3 mL (0.083 %) solution for nebulization 2.5 mg inhalation DAILY PRN (Reason: Shortness Of Breath) cetirizine [All Day Allergy (cetirizine)] 10 mg Tablet 10 mg PO DAILY ergocalciferol (vitamin D2) 50,000 unit PO .COMPLEX Patient Comments: Patient takes on Wednesdays and Sundays Rx Instructions: 50,000 units orally twice a week; prednisone 20 mg tablet 40 mg PO DAILY@0800 cyclobenzaprine 10 mg tablet 10 mg PO HS Patient Comments: patient takes in the evening lisinopril 20 mg tablet 40 mg PO HS folic acid 1 mg tablet 1 mg PO DAILY hydroxychloroquine 200 mg tablet 400 mg PO HS insulin glargine [Lantus Solostar U-100 Insulin] 100 unit/mL (3 mL) insulin pen 45 unit SUBCUT BID Patient Comments: in the morning and evening pantoprazole 40 mg tablet,delayed release (DR/EC) 40 mg PO DAILY magnesium 200 mg tablet 400 mg PO DAILY potassium 99 mg tablet 99 mg PO DAILY famotidine [Acid Controller] 20 mg tablet 20 mg PO HS acetaminophen 500 mg Tablet 1,000 mg PO BID albuterol sulfate 90 mcg/actuation HFA aerosol inhaler 2 puff INHALATION Q8H PRN (Reason: shortness of breath or wheezing) gabapentin 300 mg capsule 300 mg PO TID doxycycline hyclate 100 mg capsule 100 mg PO BID Qty: 14 0RF Follow-up/Referrals: UNKNOWN,DOCTOR [Primary Care Provider]
[2025-05-24 10:40] LABS: Alanine Aminotransferase 70 U/L (6-35); Albumin Level 3.6 g/dL (3.5-5.1); Alkaline Phosphatase 86 U/L (38-126); Anion Gap 6 mmol/L (4-12); Aspartate Amino Transferase 23 U/L (14-36); Bilirubin,Total 0.4 mg/dL (0.2-1.3); Blood Urea Nitrogen 27 mg/dL (7-17); Calcium 9.0 mg/dL (8.4-10.2); Carbon Dioxide 31 mmol/L (22-30); Chloride 96 mmol/L (98-107); Estimated CRCL calculation 97 ml/min; Estimated Glomerular Filt Rate > 60; Glucose 406 mg/dL (65-110); Potassium 4.3 mmol/L (3.4-5.0); Sodium 133 mmol/L (137-145); Total Protein 6.2 g/dL (6.3-8.2)
--- NOTE | 2025-05-24 14:23 | PM.IMHP ---
H&P: HPI History of Present Illness Date/Time: 05/24/25 14:23 Chief Complaint: Redness to right lower leg Narrative: 49-year-old female with a past medical history of JEREMY on CPAP, depression, possible vasculitis, DM2, recurrent cellulitis, unknown autoimmune disease on chronic steroids presents to the ED on 05/24/2025 with complaints of red swollen right leg. Patient noticed yesterday her leg had become bright red and swollen. This has occurred many times in the past for her. She denies fevers, chills, nausea, diarrhea. Patient was hypertensive and tachycardic on arrival. No fever. 100% on room air Leukocytosis at 15.2. Sodium 133, BUN 27, glucose 406. Lactic acid 3.1. ALT 70 Right lower extremity Doppler with probable thrombus within calf veins Review of Systems Review of Systems: All systems reviewed & are unremarkable except as noted in HPI and below PMFSH Past Medical History Medical History Immunocompromised Vasculitis Depression JEREMY on CPAP Hypertension Hypercholesterolemia Diabetes Surgical History Surgical History H/O arthroscopy H/O myomectomy Family History Family History Mother Diabetes mellitus Myocardial infarction Uterine cancer Father Cancer of blood vessel Sibling Diabetes mellitus Social History Social History Smoking status: Never smoker Second hand tobacco smoke exposure: Yes (not often) Alcohol intake: never Drinks per week: 1 Substance use: never Substance use type: does not use Do You Feel Safe in your Home?: Yes Lack of Transportation: No Lack of Food: Never True Current Housing: I Have Housing Concerned About Future Housing: No Difficulty Paying Gas/Electric Bills: No Difficulty Paying for Meds: No Currently Unemployed: No Education: Trade/Vocational Certificate Difficulty w/ Childcare or Family Care: No Spiritual care concerns: No Meds Home Medications and Allergies Home Medications ?Medication ?Instructions ?Recorded ?Confirmed ?Type atorvastatin 20 mg tablet 40 mg PO HS 10/15/20 05/24/25 History insulin lispro-aabc 100 unit/mL 1 sliding scale dose subcut AC 05/25/23 05/24/25 History subcutaneous pen (Lyumjev KwikPen U-100 Insulin) tirzepatide 5 mg/0.5 mL 12.5 mg subcut WEEKLY 05/25/23 05/24/25 History subcutaneous pen injector (Stephan) venlafaxine 150 mg 150 mg PO QAM 05/25/23 05/24/25 History capsule,extended release 24 hr tramadol 50 mg tablet 50 mg PO Q4H PRN Severe pain #15 05/29/23 05/24/25 Rx tabs albuterol sulfate 2.5 mg/3 mL 2.5 mg inhalation DAILY PRN 08/10/23 05/24/25 History (0.083 %) solution for nebulization Shortness Of Breath cetirizine 10 mg tablet (All Day 10 mg PO DAILY 08/10/23 05/24/25 History Allergy (cetirizine)) ergocalciferol (vitamin D2) 50,000 unit PO .COMPLEX 08/10/23 05/24/25 History prednisone 20 mg tablet 50 mg PO DAILY@0800 08/10/23 05/24/25 History cyclobenzaprine 10 mg tablet 10 mg PO HS 07/31/24 05/24/25 History Held on 05/24/25. Instructions: Patient no longer taking folic acid 1 mg tablet 1 mg PO DAILY 07/31/24 05/24/25 History hydroxychloroquine 200 mg tablet 200 mg PO BID 07/31/24 05/24/25 History insulin glargine 100 unit/mL (3 45 unit subcut BID 07/31/24 05/24/25 History mL) subcutaneous pen (Lantus Solostar U-100 Insulin) lisinopril 20 mg tablet 40 mg PO HS 07/31/24 05/24/25 History pantoprazole 40 mg tablet,delayed 40 mg PO HS 07/31/24 05/24/25 History release acetaminophen 500 mg tablet 1,000 mg PO BID 09/23/24 05/24/25 History famotidine 20 mg tablet (Acid 20 mg PO HS 09/23/24 05/24/25 History Controller) magnesium 200 mg tablet 400 mg PO HS 09/23/24 05/24/25 History potassium 99 mg tablet 99 mg PO DAILY 09/23/24 05/24/25 History albuterol sulfate 90 mcg/actuation 2 puff inhalation Q8H PRN 10/03/24 05/24/25 History aerosol inhaler shortness of breath or wheezing metoprolol tartrate 25 mg tablet 12.5 mg (1/2 x 25 mg) PO BID 30 12/17/24 05/24/25 Rx days #30 tabs gabapentin 300 mg capsule 300 mg PO TID 02/27/25 05/24/25 History ascorbic acid (vitamin C) 1,000 mg 1,000 mg PO .Q12hr 05/24/25 05/24/25 History tablet buprenorphine HCl 150 mcg buccal 150 mcg buccal ONCE PRN pain 05/24/25 05/24/25 History film diclofenac sodium 75 mg 75 mg PO BID 05/24/25 05/24/25 History tablet,delayed release ferrous sulfate 325 mg (65 mg 325 mg PO DAILY 05/24/25 05/24/25 History iron) tablet (iron) furosemide 40 mg tablet (Lasix) 40 mg PO DAILY 05/24/25 05/24/25 History glucosamine-chondroitin 1,500 mg PO DAILY 05/24/25 05/24/25 History omeprazole 40 mg capsule,delayed 40 mg PO DAILY 05/24/25 05/24/25 History release rituximab 10 mg/mL See Rx Instructions IV [id number] 05/24/25 05/24/25 History concentrate,intravenous (Rituxan) sulfamethoxazole 800 1 tablet PO .3xwk 05/24/25 05/24/25 History mg-trimethoprim 160 mg tablet (Bactrim DS) Allergies Allergy/AdvReac Type Severity Reaction Status Date / Time amoxicillin AdvReac Unknown Nausea and Verified 05/24/25 15:40 Vomiting glipizide AdvReac Unknown NAUSEA AND Verified 05/24/25 15:40 VOMITING hydrocodone AdvReac Unknown Nausea and Verified 05/24/25 15:40 Vomiting metformin AdvReac Unknown Nausea and Verified 05/24/25 15:40 Vomiting Vital Signs Vital Signs - 24 hr 05/24/25 08:20 05/24/25 10:16 05/24/25 10:29 Temperature 97.4 F L Pulse Rate 105 H 95 88 Respiratory Rate 18 16 16 Blood Pressure 154/87 H 160/94 H 160/94 H Pulse Oximetry 100 98 98 Oxygen Delivery Room Air 05/24/25 11:50 Temperature Pulse Rate 97 Respiratory Rate 17 Blood Pressure 149/84 H Pulse Oximetry 100 Oxygen Delivery Exam Narrative: GENERAL: non-toxic appearing, in no acute distress. HEAD: Normocephalic, atraumatic. EYES: PERRLA. Conjunctivae clear. NOSE: Normal no drainage. THROAT: Pharynx clear, no exudate. NECK: Trachea midline. No adenopathy, no masses. RESPIRATORY: Airway patent, respirations nonlabored. CTA. CARDIOVASCULAR: Regular rate and rhythm BREASTS: Defer GASTROINTESTINAL: Abdomen is soft and nontender. No organomegaly. Bowel sounds normal in all quadrants. Obese GENITOURINARY: Defer MUSCULOSKELETAL: Moves all extremities. No gross deformities. SKIN: Right leg edematous and erythematous between knee and ankle. Warm to touch. No blisters or open wounds. A few scattered scabs. Left leg also edematous but not erythematous NEURO: A&O X4. Speech clear PSYCHIATRIC: Normal interaction H&P: Results Labs Labs: Short CBC 05/24/25 Range/Units 10:15 WBC 15.2 H (4.5-10.0) K/mm3 Hgb 11.2 L (12.0-15.0) g/dL Hct 35.7 L (37.0-47.0) % Plt Count 279 (150-375) k/mm3 BMP 05/24/25 10:15 Sodium 133 L Potassium 4.3 Chloride 96 L Carbon Dioxide 31 H BUN 27 H D Creatinine 0.94 Glucose 406 H Calcium 9.0 Liver Function 05/24/25 Range/Units 10:15 Total Bilirubin 0.4 (0.2-1.3) mg/dL AST 23 (14-36) U/L ALT 70 H (6-35) U/L Alkaline Phosphatase 86 (38-126) U/L Albumin 3.6 (3.5-5.1) g/dL Assessment and Plan Assessment and plan (1) Cellulitis: Qualifiers: Site of cellulitis: extremity Site of cellulitis of extremity: lower extremity Laterality: right Qualified Code(s): L03.115 - Cellulitis of right lower limb Code(s): L03.90 - Cellulitis, unspecified Status: Acute Assessment and Plan: Right lower leg is edematous and erythematous. Warm to touch and tender. White count is elevated but patient is on chronic steroids. -- meets SIRS criteria however, patient is on chronic steroids, is frequently tachycardic - lactic acid: 3.1-->3.8-->2.6 - lactic elevated, procalcitonin added -3 L bolus LR given - started on Ancef Q 8 - blood cultures drawn on 05/24 - CBC, CMP, Lactate, INR (2) Acute deep vein thrombosis of calf: Qualifiers: Laterality: right Qualified Code(s): I82.4Z1 - Acute embolism and thrombosis of unspecified deep veins of right distal lower extremity Code(s): I82.4Z9 - Acute embolism and thrombosis of unspecified deep veins of unspecified distal lower extremity Status: Acute Assessment and Plan: Venous Doppler reveals probable thrombosis in calf vein. -start apixaban (3) Diabetes mellitus, insulin dependent (IDDM), uncontrolled: Status: Chronic Assessment and Plan: - hypoglycemia protocol - POC blood glucose ACHS - home medication: Lantus 45 units b.i.d., kiwiPen, Mounjaro - correct regimen ordered: Lantus 36 units b.i.d., high-dose correction scale - A1C 8.6 in January (4) Autoimmune disease: Code(s): M35.9 - Systemic involvement of connective tissue, unspecified Status: Chronic Assessment and Plan: Unknown autoimmune disease patient is currently getting worked up for. -Rituxan every 6 months -prednisone 50 mg daily -hydroxychloroquine 200 mg b.i.d. Plan Diet: Diabetic GI prophylaxis: PPI DVT prophylaxis: Apixaban lines/drains: PIV Fluids: 3 L LR Code status: Full Quality VTE Prophylaxis VTE prophylaxis: pharmacologic ordered Hospitalist [facility] [place] Advance Care Plan I have confirmed that the patient's Advanced Care Plan is present, code status is documented, or surrogate decision maker is listed in patient medical record.: Yes Medication Reconciliation I have utilized all available resources to obtain, update and review the patients current medications (includes all prescriptions, OTC, herbals, cannabis, and nutritional supplements).: Yes
[2025-05-24] MEDS: LACTATED RINGERS 2,000 ML 999 ML IV CONT (14:30)
[2025-05-24] MEDS: APIXABAN 5 MG TABLET 10 MG PO ×2 (14:31→21:49)
--- NOTE | 2025-05-24 15:22 | ADMGEN ---
This patient, Camila Hutiron, was admitted to Medical Room 250-01. Patient/family oriented to hospital policies and general routines including ID bracelet, bed and alarms, visiting hours, pain management, procedures, bathroom and other care routines, personal items, smoking policy, room service/diet, and visiting hours. Information on how to activate the Rapid Response Team has been discussed. Patient/Family are encouraged to report perceived risks to care and to ask questions if they do not understand what they are told or what they should do.
[2025-05-24] MEDS: INSULIN GLARGINE (*BKC) 100 UNITS/ML 36 UNITS SUB-Q (17:23)
[2025-05-24] MEDS: INSULIN ASPART (*BKC) 100 UNITS/ML 16 UNITS SUB-Q (17:25)
[2025-05-24] MEDS: traMADol HCL (*CRX) 50 MG TABLET PO (18:45)
[2025-05-24] MEDS: ATORVASTATIN 40 MG TABLET PO (21:48)
[2025-05-24] MEDS: ASCORBIC ACID 500 MG TABLET 1000 MG PO (21:48)
[2025-05-24] MEDS: FAMOTIDINE 20 MG TABLET PO (21:51)
[2025-05-24] MEDS: PANTOPRAZOLE 40 MG TABLET PO (21:52)
[2025-05-24] MEDS: MAGNESIUM OXIDE 400 MG TABLET PO (21:52)
[2025-05-24] MEDS: SULFAMETHOXAZOLE/TRIMETHOPRIM 800/160 MG DS TABLET 1 TAB PO (21:53)
[2025-05-24] MEDS: WATER FOR IRRIGATION, STERILE 1,000 ML BOTTLE 1000 ML (21:54)
[2025-05-25] VITALS (7 sets, daily range): BP systolic 134–147; BP diastolic 77–84; PULSE 96–103; RESP 16–18; TEMP 36.3–37.1; O2SAT 93–98
[2025-05-25 00:15] LABS: Procalcitonin 0.1 ng/mL
[2025-05-25] MEDS: ceFAZolin 2 GM in SODIUM CHLORIDE 0.9% IV 50 ML 100 ML IVPB ×4 (00:22→23:59)
[2025-05-25 04:42] LABS: Hematocrit 35.2 % (37.0-47.0); Hemoglobin 10.9 g/dL (12.0-15.0); Immature Granulocyte Percent A 1.4 % (0-0.5); Lymphocytes Absolute Auto 2.56 K/mm3 (0.9-3.2); Mean Corpuscular HGB Conc 31.0 g/dl (32-36); Mean Corpuscular Hemoglobin 28.8 pg (26-34); Mean Corpuscular Volume 92.9 fl (80-100); Nucleated Red Blood Cells Absolute Auto 0.000 K/mm3 (0.0-0.012); Nucleated Red Blood Cells Perc 0.0 % (0.0-0.2); Platelet Count Result 276 k/mm3 (150-375); Red Blood Count 3.79 M/mm3 (4.2-5.4); White Blood Count 15.0 K/mm3 (4.5-10.0)
[2025-05-25 05:01] LABS: Anion Gap 4 mmol/L (4-12); Blood Urea Nitrogen 25 mg/dL (7-17); Calcium 9.1 mg/dL (8.4-10.2); Carbon Dioxide 33 mmol/L (22-30); Chloride 98 mmol/L (98-107); Estimated CRCL calculation 113 ml/min; Estimated Glomerular Filt Rate > 60; Glucose 103 mg/dL (65-110); Potassium 3.9 mmol/L (3.4-5.0); Sodium 135 mmol/L (137-145)
--- NOTE | 2025-05-25 07:15 | P.PNIM_ITS ---
Progress Note: A&P Assessment and Plan (1) Cellulitis: Qualifiers: Laterality: right Site of cellulitis: extremity Site of cellulitis of extremity: lower extremity Qualified Code(s): L03.115 - Cellulitis of right lower limb Code(s): L03.90 - Cellulitis, unspecified Status: Acute Assessment and Plan: Right lower leg is edematous and erythematous. Warm to touch and tender. White count is elevated but patient is on chronic steroids. * meets SIRS criteria however, patient is on chronic steroids, is frequently tachycardic * lactic acid: 3.1-->3.8-->2.6 * lactic elevated, procalcitonin added * 3 L bolus LR given * started on Ancef Q 8 * blood cultures drawn on 05/24, still pending * CBC, CMP, Lactate, INR * Continue cefazolin and Septra (2) Acute deep vein thrombosis of calf: Qualifiers: Laterality: right Qualified Code(s): I82.4Z1 - Acute embolism and thrombosis of unspecified deep veins of right distal lower extremity Code(s): I82.4Z9 - Acute embolism and thrombosis of unspecified deep veins of unspecified distal lower extremity Status: Acute Assessment and Plan: * Venous Doppler: Probable thrombus within calf veins. No [id number] DVT. * start apixaban * Monitor vital signs, I&Os, shortness of breath and chest pain. Patient is a fall risk * Monitor serum electrolytes, PTT, CBC, WBC, temperature curve and cultures. * Continue Eliquis 10 mg q.12 hours, 5 mg q.12 hours starting on 05/31 (3) Diabetes mellitus, insulin dependent (IDDM), uncontrolled: Status: Chronic Assessment and Plan: * hypoglycemia protocol * POC blood glucose ACHS * home medication: Lantus 45 units b.i.d., kiwiPen, Mounjaro * correct regimen ordered: Lantus 36 units b.i.d., high-dose correction scale * A1C 8.6 in January (4) Autoimmune disease: Code(s): M35.9 - Systemic involvement of connective tissue, unspecified Status: Chronic Assessment and Plan: * Unknown autoimmune disease patient is currently getting worked up for. * Rituxan every 6 months * prednisone 50 mg daily * hydroxychloroquine 200 mg b.i.d. Plan Diet: Diabetic GI prophylaxis: PPI DVT prophylaxis: Apixaban lines/drains: PIV Fluids: 3 L LR Code status: Full Subjective Date/time seen: 05/25/25 07:15 Interval history: 49-year-old female with a past medical history of JEREMY on CPAP, depression, possible vasculitis, DM2, recurrent cellulitis, unknown autoimmune disease on chronic steroids presents to the ED on 05/24/2025 with complaints of red swollen right leg. 05/25/2025 Patient sitting comfortably in bed at time of examination. Denies any chest pain, shortness Sage breath, nausea/vomiting or abdominal pain at this time. Still endorsing right lower extremity pain from the calf along with numbness/tingling on both lower extremities. Pulses remain intact and right lower extremity appears bright red and tender to the touch. Continue apixaban and antibiotic coverage for cellulitis. Blood cultures still pending. Review of Systems Review of Systems: All systems reviewed & are unremarkable except as noted in HPI and below Exam Narrative: GENERAL: non-toxic appearing, in no acute distress. HEAD: Normocephalic, atraumatic. EYES: PERRLA. Conjunctivae clear. NOSE: Normal no drainage. THROAT: Pharynx clear, no exudate. NECK: Trachea midline. No adenopathy, no masses. RESPIRATORY: Airway patent, respirations nonlabored. CTA. CARDIOVASCULAR: Regular rate and rhythm BREASTS: Defer GASTROINTESTINAL: Abdomen is soft and nontender. No organomegaly. Bowel sounds normal in all quadrants. Obese GENITOURINARY: Defer MUSCULOSKELETAL: Moves all extremities. No gross deformities. SKIN: Right leg edematous and erythematous between knee and ankle. Warm to touch. No blisters or open wounds. A few scattered scabs. Left leg also edematous but not erythematous NEURO: A&O X4. Speech clear PSYCHIATRIC: Normal interaction Objective Data Vital Signs Vital Signs: Vital Signs - 24 hr 05/24/25 08:20 05/24/25 10:16 05/24/25 10:29 Temperature 97.4 F L Pulse Rate 105 H 95 88 Respiratory Rate 18 16 16 Blood Pressure 154/87 H 160/94 H 160/94 H Pulse Oximetry 100 98 98 Oxygen Delivery Room Air Fraction of Inspired Oxygen 05/24/25 11:50 05/24/25 14:31 05/24/25 15:11 Temperature 97.6 F Pulse Rate 97 101 H 97 Respiratory Rate 17 18 18 Blood Pressure 149/84 H 155/79 H 156/85 H Pulse Oximetry 100 99 98 Oxygen Delivery Fraction of Inspired Oxygen 05/24/25 16:00 05/24/25 21:30 05/24/25 21:30 Temperature 97.9 F Pulse Rate 100 105 H 105 H Respiratory Rate 18 Blood Pressure 137/87 Pulse Oximetry 97 95 95 Oxygen Delivery CPAP CPAP Fraction of Inspired Oxygen 21 05/24/25 21:56 05/25/25 06:00 Temperature 97.7 F 98.7 F Pulse Rate 108 H 100 Respiratory Rate 18 18 Blood Pressure 149/74 H 147/84 H Pulse Oximetry 95 95 Oxygen Delivery Fraction of Inspired Oxygen Intake/Output Intake/Output: Intake & Output 05/22/25 05/23/25 05/24/25 05/25/25 23:59 23:59 23:59 23:59 Intake Total 1840 250 Balance 1840 250 Meds/Results Medications: Active Medications Generic Name Dose Route Start Last Admin Trade Name Freq PRN Reason Stop Dose Admin Apixaban 10 mg 05/24/25 21:00 05/24/25 21:49 Apixaban 5 Mg Tablet PO 05/30/25 21:01 10 mg Q12HR ZEE Administration Apixaban 5 mg 05/31/25 09:00 Apixaban 5 Mg Tablet PO Q12HR ZEE Ascorbic Acid 1,000 mg 05/24/25 21:00 05/24/25 21:48 Ascorbic Acid 500 Mg Tablet PO 1,000 mg Q12HR ZEE Administration Atorvastatin Calcium 40 mg 05/24/25 21:00 05/24/25 21:48 Atorvastatin 40 Mg Tablet PO 40 mg HS ZEE Administration Dextrose 12.5 gm 05/24/25 15:37 Dextrose 50% 25 Gm/50 Ml Syringe IV PUSH PRN PRN Hypoglycemia Protocol Diclofenac Sodium 75 mg 05/25/25 09:00 Diclofenac Sod 75 Mg Tablet.Ec PO BID ZEE Famotidine 20 mg 05/24/25 21:00 05/24/25 21:51 Famotidine 20 Mg Tablet PO 20 mg HS ZEE Administration Ferrous Sulfate 325 mg 05/25/25 09:00 Ferrous Sulfate 325 Mg Tablet BY MOUTH DAILY ZEE Folic Acid 1 mg 05/25/25 09:00 Folic Acid 1 Mg Tablet PO DAILY ZEE Furosemide 40 mg 05/25/25 09:00 Furosemide 40 Mg Tablet PO DAILY ZEE Gabapentin 300 mg 05/25/25 09:00 Gabapentin 300 Mg Capsule PO TID ZEE Glucagon 1 mg 05/24/25 15:37 Glucagon For Inj 1 Mg Vial IM PRN PRN Hypoglycemia Protocol Glucose 15 gm 05/24/25 15:37 Glucose Oral Gel 15 Gm Of Glucse In 37.5 Gm Tube PO PRN PRN Hypoglycemia Protocol Hydroxychloroquine Sulfate 200 mg 05/25/25 09:00 Hydroxychloroquine Sulfate 200 Mg Tablet PO BID ZEE Dextrose 1,000 mls @ 100 mls/hr 05/24/25 15:37 Dextrose 5% 1,000 Ml IVPB PRN PRN Hypoglycemia Protocol Cefazolin Sodium 2 gm/ Sodium 50 mls @ 100 mls/hr 05/25/25 00:00 05/25/25 00:52 Chloride IVPB Infused Q8H ZEE Infusion Insulin Aspart 4 - 8 units 05/24/25 17:00 05/24/25 17:21 Insulin Aspart (*Bkc) 100 Units/Ml SUB-Q Not Given TIDWM [facility] Protocol Insulin Glargine 36 units 05/24/25 17:00 05/24/25 17:23 Insulin Glargine (*Bkc) 100 Units/Ml SUB-Q 36 units BID ZEE Administration Lisinopril 40 mg 05/24/25 21:00 05/24/25 21:51 Lisinopril 20 Mg Tablet PO 40 mg HS ZEE Administration Loratadine 10 mg 05/25/25 09:00 Loratadine 10 Mg Tablet PO QAM ZEE Magnesium Oxide 400 mg 05/24/25 21:00 05/24/25 21:52 Magnesium Oxide 400 Mg Tablet PO 400 mg HS ZEE Administration Metoprolol Tartrate 12.5 mg 05/25/25 09:00 Metoprolol Tartrate 12.5 Mg Tablet PO Q12HR ZEE Pantoprazole Sodium 40 mg 05/24/25 21:00 05/24/25 21:52 Pantoprazole 40 Mg Tablet PO 40 mg HS ZEE Administration Potassium Chloride 10 meq 05/25/25 08:00 Potassium Chloride 10 Meq Er Tablet PO BIDWM ZEE Prednisone 50 mg 05/25/25 08:00 Prednisone 10 Mg Tablet PO DAILY@0800 ZEE Tramadol HCl 50 mg 05/24/25 18:35 05/24/25 18:45 Tramadol Hcl (*Crx) 50 Mg Tablet PO 50 mg Q4H PRN Administration Severe Pain Trimethoprim/Sulfamethoxazole 1 tab 05/24/25 21:00 05/24/25 21:53 Sulfamethoxazole/Trimethoprim 800/160 Mg Ds Tablet PO 1 tab [email or web address] Administration Venlafaxine HCl 150 mg 05/25/25 09:00 Venlafaxine Hcl Xr 75 Mg Cap.Er.24h PO QAM [facility] Labs Labs: Laboratory Results - last 24 hr 05/24/25 05/24/25 05/24/25 10:15 13:00 17:02 WBC 15.2 H RBC 3.88 L Hgb 11.2 L Hct 35.7 L MCV 92.0 MCH 28.9 MCHC 31.4 L RDW 15.7 H Plt Count 279 MPV 10.8 H Immature Gran % (Auto) 1.4 H Neut % (Auto) 88.8 H Lymph % (Auto) 4.9 L [place] % (Auto) 4.6 Eos % (Auto) 0.1 Baso % (Auto) 0.2 Lymph # (Auto) 0.74 L [place] # (Auto) 0.7 H Eos # (Auto) 0.0 Baso # (Auto) 0.0 Abs Immat Gran (auto) 0.22 H Absolute Neuts (auto) 13.5 H Absolute Nucleated RBC 0.000 Nucleated RBC % 0.0 Sodium 133 L Potassium 4.3 Chloride 96 L Carbon Dioxide 31 H Anion Gap 6 BUN 27 H D Creatinine 0.94 Estim Creat Clear Calc 97 Estimated GFR > 60 Glucose 406 H POC Capillary Glucose 469 H Lactic Acid 3.1 H 3.8 H Calcium 9.0 Total Bilirubin 0.4 AST 23 ALT 70 H Alkaline Phosphatase 86 Total Protein 6.2 L Albumin 3.6 Procalcitonin 05/24/25 05/24/25 05/24/25 18:33 20:49 23:37 WBC RBC Hgb Hct MCV MCH MCHC RDW Plt Count MPV Immature Gran % (Auto) Neut % (Auto) Lymph % (Auto) [place] % (Auto) Eos % (Auto) Baso % (Auto) Lymph # (Auto) [place] # (Auto) Eos # (Auto) Baso # (Auto) Abs Immat Gran (auto) Absolute Neuts (auto) Absolute Nucleated RBC Nucleated RBC % Sodium Potassium Chloride Carbon Dioxide Anion Gap BUN Creatinine Estim Creat Clear Calc Estimated GFR Glucose POC Capillary Glucose 245 H Lactic Acid 2.6 H 1.4 Calcium Total Bilirubin AST ALT Alkaline Phosphatase Total Protein Albumin Procalcitonin 0.1 05/25/25 04:23 WBC 15.0 H RBC 3.79 L Hgb 10.9 L Hct 35.2 L MCV 92.9 MCH 28.8 MCHC 31.0 L RDW 15.9 H Plt Count 276 MPV 10.7 H Immature Gran % (Auto) 1.4 H Neut % (Auto) 74.9 H Lymph % (Auto) 17.1 L [place] % (Auto) 6.0 Eos % (Auto) 0.3 Baso % (Auto) 0.3 Lymph # (Auto) 2.56 [place] # (Auto) 0.9 H Eos # (Auto) 0.1 Baso # (Auto) 0.1 Abs Immat Gran (auto) 0.21 H Absolute Neuts (auto) 11.2 H Absolute Nucleated RBC 0.000 Nucleated RBC % 0.0 Sodium 135 L Potassium 3.9 Chloride 98 Carbon Dioxide 33 H Anion Gap 4 BUN 25 H Creatinine 0.80 Estim Creat Clear Calc 113 Estimated GFR > 60 Glucose 103 POC Capillary Glucose Lactic Acid Calcium 9.1 Total Bilirubin AST ALT Alkaline Phosphatase Total Protein Albumin Procalcitonin Quality VTE Prophylaxis VTE prophylaxis: pharmacologic ordered
[2025-05-25] MEDS: FOLIC ACID 1 MG TABLET PO (08:49)
[2025-05-25] MEDS: FUROSEMIDE 40 MG TABLET PO (08:49)
[2025-05-25] MEDS: GABAPENTIN 300 MG CAPSULE PO ×3 (08:49→16:06)
[2025-05-25] MEDS: POTASSIUM CHLORIDE 10 MEQ ER TABLET PO ×2 (08:49→16:06)
[2025-05-25] MEDS: FERROUS SULFATE 325 MG TABLET BY MOUTH (08:50)
[2025-05-25] MEDS: VENLAFAXINE HCL XR 75 MG CAP.ER.24H 150 MG PO (08:50)
[2025-05-25] MEDS: DICLOFENAC SOD 75 MG TABLET.EC PO ×2 (08:50→16:07)
[2025-05-25] MEDS: LORATADINE 10 MG TABLET PO (08:50)
[2025-05-25] MEDS: APIXABAN 5 MG TABLET 10 MG PO ×2 (08:51→20:16)
[2025-05-25] MEDS: ASCORBIC ACID 500 MG TABLET 1000 MG PO ×2 (08:51→20:16)
[2025-05-25] MEDS: METOPROLOL TARTRATE 12.5 MG TABLET PO ×2 (08:51→20:17)
[2025-05-25] MEDS: HYDROXYCHLOROQUINE SULFATE 200 MG TABLET PO ×2 (08:51→16:07)
[2025-05-25] MEDS: INSULIN GLARGINE (*BKC) 100 UNITS/ML 36 UNITS SUB-Q ×2 (08:56→17:01)
[2025-05-25] MEDS: traMADol HCL (*CRX) 50 MG TABLET PO ×2 (09:01→20:15)
[2025-05-25] MEDS: INSULIN ASPART (*BKC) 100 UNITS/ML SUB-Q (11:37)
[2025-05-25] MEDS: INSULIN ASPART (*BKC) 100 UNITS/ML 10 UNITS SUB-Q (17:03)
[2025-05-25] MEDS: SODIUM CHLORIDE 0.9% IV 1,000 ML 150 ML IRRIGATION (18:26)
[2025-05-25 20:00] LABS: NT Pro B Type Natriuretic Pept 225 pg/mL (19.9-100)
[2025-05-25] MEDS: INSULIN GLARGINE (*BKC) 100 UNITS/ML 9 UNITS SUB-Q (20:13)
[2025-05-25] MEDS: INSULIN ASPART (*BKC) 100 UNITS/ML 8 UNITS SUB-Q (20:14)
[2025-05-25] MEDS: FAMOTIDINE 20 MG TABLET PO (20:15)
[2025-05-25] MEDS: MAGNESIUM OXIDE 400 MG TABLET PO (20:15)
[2025-05-25] MEDS: ATORVASTATIN 40 MG TABLET PO (20:16)
[2025-05-25] MEDS: PANTOPRAZOLE 40 MG TABLET PO (20:16)
[2025-05-26] VITALS (8 sets, daily range): BP systolic 137–157; BP diastolic 76–89; PULSE 94–121; RESP 16–20; TEMP 36.1–36.8; O2SAT 93–99
--- NOTE | 2025-05-26 07:14 | P.PNIM_ITS ---
Progress Note: A&P Assessment and Plan (1) Cellulitis: Qualifiers: Laterality: right Site of cellulitis: extremity Site of cellulitis of extremity: lower extremity Qualified Code(s): L03.115 - Cellulitis of right lower limb Code(s): L03.90 - Cellulitis, unspecified Status: Acute Assessment and Plan: Right lower leg is edematous and erythematous. Warm to touch and tender. White count is elevated but patient is on chronic steroids. * meets SIRS criteria however, patient is on chronic steroids, is frequently tachycardic * lactic acid: 3.1-->3.8-->2.6 * lactic elevated, procalcitonin added * 3 L bolus LR given * started on Ancef Q 8 * blood cultures drawn on 05/24, still pending * CBC, CMP, Lactate, INR * Continue cefazolin and Septra (2) Acute deep vein thrombosis of calf: Qualifiers: Laterality: right Qualified Code(s): I82.4Z1 - Acute embolism and thrombosis of unspecified deep veins of right distal lower extremity Code(s): I82.4Z9 - Acute embolism and thrombosis of unspecified deep veins of unspecified distal lower extremity Status: Acute Assessment and Plan: * Venous Doppler: Probable thrombus within calf veins. No [id number] DVT. * start apixaban * Monitor vital signs, I&Os, shortness of breath and chest pain. Patient is a fall risk * Monitor serum electrolytes, PTT, CBC, WBC, temperature curve and cultures. * Continue Eliquis 10 mg q.12 hours, 5 mg q.12 hours starting on 05/31 (3) Diabetes mellitus, insulin dependent (IDDM), uncontrolled: Status: Chronic Assessment and Plan: * hypoglycemia protocol * POC blood glucose ACHS * home medication: Lantus 45 units b.i.d., kiwiPen, Mounjaro * correct regimen ordered: Lantus 36 units b.i.d., high-dose correction scale * A1C 8.6 in January (4) Autoimmune disease: Code(s): M35.9 - Systemic involvement of connective tissue, unspecified Status: Chronic Assessment and Plan: * Unknown autoimmune disease patient is currently getting worked up for. * Rituxan every 6 months * prednisone 50 mg daily * hydroxychloroquine 200 mg b.i.d. Plan Diet: Diabetic GI prophylaxis: PPI DVT prophylaxis: Apixaban lines/drains: PIV Fluids: 3 L LR Code status: Full Subjective Date/time seen: 05/26/25 07:14 Interval history: 49-year-old female with a past medical history of JEREMY on CPAP, depression, possible vasculitis, DM2, recurrent cellulitis, unknown autoimmune disease on chronic steroids presents to the ED on 05/24/2025 with complaints of red swollen right leg. 05/26/2025 Patient sitting comfortably in bed at time of examination. Denies any chest pain, shortness of breath, nausea/vomiting or abdominal pain at this time. Lower extremity redness seems to have improved greatly, patient endorsing significant pain relief in lower extremities. Remains afebrile, leukocytosis down trending. Blood culture still pending. No other complaints or concerns at this time. Review of Systems Review of Systems: All systems reviewed & are unremarkable except as noted in HPI and below Exam Narrative: GENERAL: non-toxic appearing, in no acute distress. HEAD: Normocephalic, atraumatic. EYES: PERRLA. Conjunctivae clear. NOSE: Normal no drainage. THROAT: Pharynx clear, no exudate. NECK: Trachea midline. No adenopathy, no masses. RESPIRATORY: Airway patent, respirations nonlabored. CTA. CARDIOVASCULAR: Regular rate and rhythm BREASTS: Defer GASTROINTESTINAL: Abdomen is soft and nontender. No organomegaly. Bowel sounds normal in all quadrants. Obese GENITOURINARY: Defer MUSCULOSKELETAL: Moves all extremities. No gross deformities. SKIN: Improving edema and erythema and right lower leg between knee and ankle. No blisters or open wounds. A few scattered scabs. Left leg also edematous but not erythematous NEURO: A&O X4. Speech clear PSYCHIATRIC: Normal interaction Objective Data Vital Signs Vital Signs: Vital Signs - 24 hr 05/25/25 08:43 05/25/25 08:47 05/25/25 08:51 Temperature 98.4 F Pulse Rate 100 101 H 100 Respiratory Rate 16 16 Blood Pressure 134/82 Pulse Oximetry 98 98 Oxygen Delivery Room Air Fraction of Inspired Oxygen 21 05/25/25 14:00 05/25/25 14:35 05/25/25 19:47 Temperature 98 F 97.3 F L Pulse Rate 103 H 103 H Respiratory Rate 18 18 Blood Pressure 140/77 147/80 H Pulse Oximetry 93 96 Oxygen Delivery Room Air Fraction of Inspired Oxygen 05/25/25 20:00 05/25/25 20:17 05/26/25 06:00 Temperature 97.5 F L Pulse Rate 96 94 Respiratory Rate 18 Blood Pressure 148/88 H Pulse Oximetry 95 Oxygen Delivery Room Air Fraction of Inspired Oxygen Intake/Output Intake/Output: Intake & Output 05/23/25 05/24/25 05/25/25 05/26/25 23:59 23:59 23:59 23:59 Intake Total 1840 1070 1450 Balance 1840 1070 1450 Meds/Results Medications: Active Medications Generic Name Dose Route Start Last Admin Trade Name Freq PRN Reason Stop Dose Admin Apixaban 10 mg 05/24/25 21:00 05/25/25 20:16 Apixaban 5 Mg Tablet PO 05/30/25 21:01 10 mg Q12HR ZEE Administration Apixaban 5 mg 05/31/25 09:00 Apixaban 5 Mg Tablet PO Q12HR ZEE Ascorbic Acid 1,000 mg 05/24/25 21:00 05/25/25 20:16 Ascorbic Acid 500 Mg Tablet PO 1,000 mg Q12HR ZEE Administration Atorvastatin Calcium 40 mg 05/24/25 21:00 05/25/25 20:16 Atorvastatin 40 Mg Tablet PO 40 mg HS ZEE Administration Dextrose 12.5 gm 05/24/25 15:37 Dextrose 50% 25 Gm/50 Ml Syringe IV PUSH PRN PRN Hypoglycemia Protocol Diclofenac Sodium 75 mg 05/25/25 09:00 05/25/25 16:07 Diclofenac Sod 75 Mg Tablet.Ec PO 75 mg BID ZEE Administration Famotidine 20 mg 05/24/25 21:00 05/25/25 20:15 Famotidine 20 Mg Tablet PO 20 mg HS ZEE Administration Ferrous Sulfate 325 mg 05/25/25 09:00 05/25/25 08:50 Ferrous Sulfate 325 Mg Tablet BY MOUTH 325 mg DAILY ZEE Administration Folic Acid 1 mg 05/25/25 09:00 05/25/25 08:49 Folic Acid 1 Mg Tablet PO 1 mg DAILY ZEE Administration Furosemide 40 mg 05/25/25 09:00 05/25/25 08:49 Furosemide 40 Mg Tablet PO 40 mg DAILY ZEE Administration Gabapentin 300 mg 05/25/25 09:00 05/25/25 16:06 Gabapentin 300 Mg Capsule PO 300 mg TID ZEE Administration Glucagon 1 mg 05/24/25 15:37 Glucagon For Inj 1 Mg Vial IM PRN PRN Hypoglycemia Protocol Glucose 15 gm 05/24/25 15:37 Glucose Oral Gel 15 Gm Of Glucse In 37.5 Gm Tube PO PRN PRN Hypoglycemia Protocol Hydroxychloroquine Sulfate 200 mg 05/25/25 09:00 05/25/25 16:07 Hydroxychloroquine Sulfate 200 Mg Tablet PO 200 mg BID ZEE Administration Dextrose 1,000 mls @ 100 mls/hr 05/24/25 15:37 Dextrose 5% 1,000 Ml IVPB PRN PRN Hypoglycemia Protocol Cefazolin Sodium 2 gm/ Sodium 50 mls @ 100 mls/hr 05/25/25 00:00 05/26/25 00:29 Chloride IVPB Infused Q8H ZEE Infusion Insulin Aspart 4 - 8 units 05/24/25 17:00 05/25/25 16:54 Insulin Aspart (*Bkc) 100 Units/Ml SUB-Q Not Given TIDWM [facility] Protocol Insulin Glargine 45 units 05/26/25 09:00 Insulin Glargine (*Bkc) 100 Units/Ml SUB-Q BID ZEE Lisinopril 40 mg 05/24/25 21:00 05/25/25 20:17 Lisinopril 20 Mg Tablet PO 40 mg HS ZEE Administration Loratadine 10 mg 05/25/25 09:00 05/25/25 08:50 Loratadine 10 Mg Tablet PO 10 mg QAM ZEE Administration Magnesium Oxide 400 mg 05/24/25 21:00 05/25/25 20:15 Magnesium Oxide 400 Mg Tablet PO 400 mg HS ZEE Administration Metoprolol Tartrate 12.5 mg 05/25/25 09:00 05/25/25 20:17 Metoprolol Tartrate 12.5 Mg Tablet PO 12.5 mg Q12HR ZEE Administration Pantoprazole Sodium 40 mg 05/24/25 21:00 05/25/25 20:16 Pantoprazole 40 Mg Tablet PO 40 mg HS ZEE Administration Potassium Chloride 10 meq 05/25/25 08:00 05/25/25 16:06 Potassium Chloride 10 Meq Er Tablet PO 10 meq BIDWM ZEE Administration Prednisone 50 mg 05/25/25 08:00 05/25/25 08:51 Prednisone 10 Mg Tablet PO 50 mg DAILY@0800 ZEE Administration Tramadol HCl 50 mg 05/24/25 18:35 05/25/25 20:15 Tramadol Hcl (*Crx) 50 Mg Tablet PO 50 mg Q4H PRN Administration Severe Pain Trimethoprim/Sulfamethoxazole 1 tab 05/24/25 21:00 05/24/25 21:53 Sulfamethoxazole/Trimethoprim 800/160 Mg Ds Tablet PO 1 tab [email or web address] [facility] Administration Venlafaxine HCl 150 mg 05/25/25 09:00 05/25/25 08:50 Venlafaxine Hcl Xr 75 Mg Cap.Er.24h PO 150 mg QAM ZEE Administration Labs Labs: Laboratory Results - last 24 hr 05/25/25 05/25/25 05/25/25 04:23 07:42 11:28 POC Capillary Glucose 104 206 H NT-Pro-B Natriuret Pep 225 H 05/25/25 05/25/25 05/25/25 16:42 18:11 19:46 POC Capillary Glucose 422 H 473 H 405 H NT-Pro-B Natriuret Pep 05/25/25 22:48 POC Capillary Glucose 283 H NT-Pro-B Natriuret Pep Quality VTE Prophylaxis VTE prophylaxis: pharmacologic ordered
[2025-05-26 08:18] LABS: Hematocrit 39.1 % (37.0-47.0); Hemoglobin 12.1 g/dL (12.0-15.0); Immature Granulocyte Percent A 2.2 % (0-0.5); Lymphocytes Absolute Auto 2.60 K/mm3 (0.9-3.2); Mean Corpuscular HGB Conc 30.9 g/dl (32-36); Mean Corpuscular Hemoglobin 29.2 pg (26-34); Mean Corpuscular Volume 94.2 fl (80-100); Nucleated Red Blood Cells Absolute Auto 0.000 K/mm3 (0.0-0.012); Nucleated Red Blood Cells Perc 0.0 % (0.0-0.2); Platelet Count Result 324 k/mm3 (150-375); Red Blood Count 4.15 M/mm3 (4.2-5.4); White Blood Count 14.8 K/mm3 (4.5-10.0)
[2025-05-26 08:27] LABS: Alanine Aminotransferase 55 U/L (6-35); Albumin Level 3.6 g/dL (3.5-5.1); Alkaline Phosphatase 71 U/L (38-126); Anion Gap 8 mmol/L (4-12); Aspartate Amino Transferase 24 U/L (14-36); Bilirubin,Total 0.5 mg/dL (0.2-1.3); Blood Urea Nitrogen 24 mg/dL (7-17); Calcium 9.1 mg/dL (8.4-10.2); Carbon Dioxide 28 mmol/L (22-30); Chloride 98 mmol/L (98-107); Estimated CRCL calculation 126 ml/min; Estimated Glomerular Filt Rate > 60; Glucose 111 mg/dL (65-110); Potassium 4.1 mmol/L (3.4-5.0); Sodium 134 mmol/L (137-145); Total Protein 6.2 g/dL (6.3-8.2)
[2025-05-26] MEDS: ceFAZolin 2 GM in SODIUM CHLORIDE 0.9% IV 50 ML 100 ML IVPB ×3 (08:31→23:05)
[2025-05-26] MEDS: INSULIN GLARGINE (*BKC) 100 UNITS/ML 45 UNITS SUB-Q ×2 (08:37→16:49)
[2025-05-26] MEDS: GABAPENTIN 300 MG CAPSULE PO ×3 (08:41→16:48)
[2025-05-26] MEDS: FOLIC ACID 1 MG TABLET PO (08:41)
[2025-05-26] MEDS: FERROUS SULFATE 325 MG TABLET BY MOUTH (08:41)
[2025-05-26] MEDS: DICLOFENAC SOD 75 MG TABLET.EC PO ×2 (08:41→16:48)
[2025-05-26] MEDS: HYDROXYCHLOROQUINE SULFATE 200 MG TABLET PO ×2 (08:42→16:49)
[2025-05-26] MEDS: FUROSEMIDE 40 MG TABLET PO (08:42)
[2025-05-26] MEDS: METOPROLOL TARTRATE 12.5 MG TABLET PO ×2 (08:43→21:53)
[2025-05-26] MEDS: VENLAFAXINE HCL XR 75 MG CAP.ER.24H 150 MG PO (08:43)
[2025-05-26] MEDS: POTASSIUM CHLORIDE 10 MEQ ER TABLET PO ×2 (08:44→16:49)
[2025-05-26] MEDS: APIXABAN 5 MG TABLET 10 MG PO ×2 (08:44→21:54)
[2025-05-26] MEDS: LORATADINE 10 MG TABLET PO (08:45)
[2025-05-26] MEDS: ASCORBIC ACID 500 MG TABLET 1000 MG PO ×2 (08:45→21:54)
[2025-05-26] MEDS: INSULIN ASPART (*BKC) 100 UNITS/ML SUB-Q ×2 (12:08→16:50)
[2025-05-26] MEDS: MAGNESIUM OXIDE 400 MG TABLET PO (21:53)
[2025-05-26] MEDS: PANTOPRAZOLE 40 MG TABLET PO (21:53)
[2025-05-26] MEDS: FAMOTIDINE 20 MG TABLET PO (21:53)
[2025-05-26] MEDS: guaiFENesin 12 HR 600 MG TABCR PO (21:53)
[2025-05-26] MEDS: ATORVASTATIN 40 MG TABLET PO (21:53)
[2025-05-26] MEDS: SULFAMETHOXAZOLE/TRIMETHOPRIM 800/160 MG DS TABLET 1 TAB PO (21:54)
[2025-05-26] MEDS: FLUTICASONE PROPIONATE 0.05% NA SPR 16 GM BTL (*BKC) 1 SPRAY NASAL (21:54)
[2025-05-26] MEDS: INSULIN ASPART (*BKC) 100 UNITS/ML 6 UNITS SUB-Q (23:05)
[2025-05-27] VITALS: BP 140/80; PULSE 98; RESP 18; TEMP 36.4; O2SAT 98
[2025-05-27 04:45] LABS: Hematocrit 38.8 % (37.0-47.0); Hemoglobin 12.3 g/dL (12.0-15.0); Immature Granulocyte Percent A 2.7 % (0-0.5); Lymphocytes Absolute Auto 2.30 K/mm3 (0.9-3.2); Mean Corpuscular HGB Conc 31.7 g/dl (32-36); Mean Corpuscular Hemoglobin 28.9 pg (26-34); Mean Corpuscular Volume 91.1 fl (80-100); Nucleated Red Blood Cells Absolute Auto 0.000 K/mm3 (0.0-0.012); Nucleated Red Blood Cells Perc 0.0 % (0.0-0.2); Platelet Count Result 352 k/mm3 (150-375); Red Blood Count 4.26 M/mm3 (4.2-5.4); White Blood Count 14.2 K/mm3 (4.5-10.0)
[2025-05-27 05:10] LABS: Alanine Aminotransferase 55 U/L (6-35); Albumin Level 3.8 g/dL (3.5-5.1); Alkaline Phosphatase 66 U/L (38-126); Anion Gap 5 mmol/L (4-12); Aspartate Amino Transferase 25 U/L (14-36); Bilirubin,Total 0.4 mg/dL (0.2-1.3); Blood Urea Nitrogen 23 mg/dL (7-17); Calcium 9.3 mg/dL (8.4-10.2); Carbon Dioxide 33 mmol/L (22-30); Chloride 97 mmol/L (98-107); Estimated CRCL calculation 114 ml/min; Estimated Glomerular Filt Rate > 60; Glucose 131 mg/dL (65-110); Potassium 4.0 mmol/L (3.4-5.0); Sodium 135 mmol/L (137-145); Total Protein 6.6 g/dL (6.3-8.2)
[2025-05-27 06:00] VITALS: BP 134/72; PULSE 98; RESP 18; TEMP 36.7; O2SAT 98
[2025-05-27] MEDS: INSULIN GLARGINE (*BKC) 100 UNITS/ML 45 UNITS SUB-Q (08:14)
[2025-05-27] MEDS: DICLOFENAC SOD 75 MG TABLET.EC PO (08:17)
[2025-05-27 08:18] VITALS: PULSE 98
[2025-05-27] MEDS: METOPROLOL TARTRATE 12.5 MG TABLET PO (08:18)
[2025-05-27] MEDS: FERROUS SULFATE 325 MG TABLET BY MOUTH (08:18)
[2025-05-27] MEDS: LORATADINE 10 MG TABLET PO (08:18)
[2025-05-27] MEDS: FOLIC ACID 1 MG TABLET PO (08:18)
[2025-05-27] MEDS: HYDROXYCHLOROQUINE SULFATE 200 MG TABLET PO (08:18)
[2025-05-27] MEDS: FUROSEMIDE 40 MG TABLET PO (08:18)
[2025-05-27] MEDS: POTASSIUM CHLORIDE 10 MEQ ER TABLET PO (08:19)
[2025-05-27] MEDS: GABAPENTIN 300 MG CAPSULE PO (08:19)
[2025-05-27] MEDS: APIXABAN 5 MG TABLET 10 MG PO (08:19)
[2025-05-27] MEDS: ceFAZolin 2 GM in SODIUM CHLORIDE 0.9% IV 50 ML 100 ML IVPB (08:23)
[2025-05-27] MEDS: VENLAFAXINE HCL XR 75 MG CAP.ER.24H 150 MG PO (08:33)
[2025-05-27] MEDS: FLUTICASONE PROPIONATE 0.05% NA SPR 16 GM BTL (*BKC) 1 SPRAY NASAL (08:33)
[2025-05-27] MEDS: ASCORBIC ACID 500 MG TABLET 1000 MG PO (08:33)
--- NOTE | 2025-05-27 08:45 | P.DS_ITS ---
DS: Admitting Diagnosis Discharge Date 05/27/2025 Admitting Diagnosis Cellulitis, DVT DS: Discharge Diagnosis Discharge Diagnosis (1) Cellulitis: Qualifiers: Laterality: right Site of cellulitis: extremity Site of cellulitis of extremity: lower extremity Qualified Code(s): L03.115 - Cellulitis of right lower limb Code(s): L03.90 - Cellulitis, unspecified Status: Acute Assessment and Plan: Right lower leg is edematous and erythematous. Warm to touch and tender. White count is elevated but patient is on chronic steroids. * meets SIRS criteria however, patient is on chronic steroids, is frequently tachycardic * lactic acid: 3.1-->3.8-->2.6 * lactic elevated, procalcitonin added * 3 L bolus LR given * started on Ancef Q 8 * blood cultures drawn on 05/24, still pending * CBC, CMP, Lactate, INR * Continue cefazolin and Septra (2) Acute deep vein thrombosis of calf: Qualifiers: Laterality: right Qualified Code(s): I82.4Z1 - Acute embolism and thrombosis of unspecified deep veins of right distal lower extremity Code(s): I82.4Z9 - Acute embolism and thrombosis of unspecified deep veins of unspecified distal lower extremity Status: Acute Assessment and Plan: * Venous Doppler: Probable thrombus within calf veins. No [id number] DVT. * start apixaban * Monitor vital signs, I&Os, shortness of breath and chest pain. Patient is a fall risk * Monitor serum electrolytes, PTT, CBC, WBC, temperature curve and cultures. * Continue Eliquis 10 mg q.12 hours, 5 mg q.12 hours starting on 05/31 (3) Diabetes mellitus, insulin dependent (IDDM), uncontrolled: Status: Chronic Assessment and Plan: * hypoglycemia protocol * POC blood glucose ACHS * home medication: Lantus 45 units b.i.d., Stephan Denson * correct regimen ordered: Lantus 36 units b.i.d., high-dose correction scale * A1C 8.6 in January (4) Autoimmune disease: Code(s): M35.9 - Systemic involvement of connective tissue, unspecified Status: Chronic Assessment and Plan: * Unknown autoimmune disease patient is currently getting worked up for. * Rituxan every 6 months * prednisone 50 mg daily * hydroxychloroquine 200 mg b.i.d. Plan Diet: Diabetic GI prophylaxis: PPI DVT prophylaxis: Apixaban lines/drains: PIV Fluids: 3 L LR Code status: Full DS: Summary Hospital Course Reason for hospitalization: Redness to right lower leg Hospital Course: Per HPI: 49-year-old female with a past medical history of JEREMY on CPAP, depression, possible vasculitis, DM2, recurrent cellulitis, unknown autoimmune disease on chronic steroids presents to the ED on 05/24/2025 with complaints of red swollen right leg. Patient noticed yesterday her leg had become bright red and swollen. This has occurred many times in the past for her. She denies fevers, chills, nausea, diarrhea. Patient was hypertensive and tachycardic on arrival. No fever. 100% on room air Leukocytosis at 15.2. Sodium 133, BUN 27, glucose 406. Lactic acid 3.1. ALT 70 Right lower extremity Doppler with probable thrombus within calf veins Hospital Course: Cefazolin and Septra were continued throughout hospitalization. Blood cultures were drawn on 05/24. On 05/27, we had preliminary growth results showing no growth to date. Given a probable thrombus within the calf veins, Eliquis 10 mg q.12 hours were initiated. These will be recommended to continue through 05/30. From then on starting on 05/31, Eliquis 5 mg b.i.d. will be recommended. Patient was monitored for the next few days and cellulitis/erythema continued to improve. By 05/27, patient states that her level of erythema is near baseline, stating that she always has some amount of swelling/redness to the lower extremities. Given hemodynamic stability, lack of growth of blood cultures and ability to intake p.o. medications, plan for discharge at this time. She will be prescribed Eliquis and advised to follow-up with her primary care physician regarding further management. She will likely need 3+ months of Eliquis. She will also be prescribed clindamycin for cellulitis. Plan for discharge at this time. Status at Discharge Functional status at discharge: independent ambulation Overall status at discharge: patient is back to baseline Time Spent with Patient Time attestation: Total time spent providing and/or coordinating discharge services: 28 Exam Narrative: GENERAL: non-toxic appearing, in no acute distress. HEAD: Normocephalic, atraumatic. EYES: PERRLA. Conjunctivae clear. NOSE: Normal no drainage. THROAT: Pharynx clear, no exudate. NECK: Trachea midline. No adenopathy, no masses. RESPIRATORY: Airway patent, respirations nonlabored. CTA. CARDIOVASCULAR: Regular rate and rhythm BREASTS: Defer GASTROINTESTINAL: Abdomen is soft and nontender. No organomegaly. Bowel sounds normal in all quadrants. Obese GENITOURINARY: Defer MUSCULOSKELETAL: Moves all extremities. No gross deformities. SKIN: Improving edema and erythema and right lower leg between knee and ankle. No blisters or open wounds. A few scattered scabs. Left leg also edematous but not erythematous NEURO: A&O X4. Speech clear PSYCHIATRIC: Normal interaction DS: Data Data Completed and Pending Labs on day of discharge: Labs from last 24 hours 05/27/25 05/27/25 05/26/25 08:12 04:35 22:46 WBC 14.2 H RBC 4.26 Hgb 12.3 Hct 38.8 MCV 91.1 MCH 28.9 MCHC 31.7 L RDW 15.8 H Plt Count 352 MPV 10.3 Immature Gran % (Auto) 2.7 H Neut % (Auto) 71.7 Lymph % (Auto) 16.2 L [place] % (Auto) 8.6 H Eos % (Auto) 0.4 Baso % (Auto) 0.4 Lymph # (Auto) 2.30 [place] # (Auto) 1.2 H Eos # (Auto) 0.1 Baso # (Auto) 0.1 Abs Immat Gran (auto) 0.39 H Absolute Neuts (auto) 10.2 H Absolute Nucleated RBC 0.000 Nucleated RBC % 0.0 Sodium 135 L Potassium 4.0 Chloride 97 L Carbon Dioxide 33 H Anion Gap 5 BUN 23 H Creatinine 0.79 Estim Creat Clear Calc 114 Estimated GFR > 60 Glucose 131 H POC Capillary Glucose 129 H 302 H Calcium 9.3 Total Bilirubin 0.4 AST 25 ALT 55 H Alkaline Phosphatase 66 Total Protein 6.6 Albumin 3.8 05/26/25 05/26/25 05/26/25 20:06 16:32 11:51 WBC RBC Hgb Hct MCV MCH MCHC RDW Plt Count MPV Immature Gran % (Auto) Neut % (Auto) Lymph % (Auto) [place] % (Auto) Eos % (Auto) Baso % (Auto) Lymph # (Auto) [place] # (Auto) Eos # (Auto) Baso # (Auto) Abs Immat Gran (auto) Absolute Neuts (auto) Absolute Nucleated RBC Nucleated RBC % Sodium Potassium Chloride Carbon Dioxide Anion Gap BUN Creatinine Estim Creat Clear Calc Estimated GFR Glucose POC Capillary Glucose 387 H 328 H 279 H Calcium Total Bilirubin AST ALT Alkaline Phosphatase Total Protein Albumin Preliminary micro results at discharge 05/24/25 13:00 Blood Culture - Preliminary Blood 05/24/25 13:01 Blood Culture - Preliminary Blood Discharge Plan Discharge Attending physician on discharge: Frank Monk Consulting providers: Justus Anderson Discharging Clinician: Justus Anderson Anticipated Discharge Date/Time: 05/27/25 08:24 Patient Disposition: Home Activity: as tolerated Diet: heart healthy Discharge Instructions: You are going to be prescribed Eliquis for your Venous Thrombosis. You will be prescribed 10mg of the Eliquis to be taken twice daily until the pm dose on 05/30. Then on 05/31 you will start taking 5mg twice daily. Hold Diclofenac while taking Eliquis due to increased risk of bleeding. Discuss with your primary care physician regarding alternatives. You will be prescribed Clindamycin to be taken for 5 additional days for your cellulitis. The dose will be 450mg to be taken three times daily. Take all medications as prescribed even if feeling better Eat well balanced meals and stay hydrated Strict bleeding precautions since you are being started on Eliquis including shaving with an electric razor, holding pressure for greater than 20 minutes for injury, protection of had with any falls, etc. Change positions slowly taking a break in between each position change If you should experience any chest pain, shortness of breath, temps >100.4 or any other worrisome symptoms please follow up with your PCP come back to the hospital Follow up with your primary in 1 weeks It has been a pleasure taking care of you thank you for using our services Patient Instructions: Antibiotic Form, Apixaban (By mouth) Patient Language: Italian Stand Alone Forms: General Discharge Information Follow-up/Referrals: Michael,Lynn [Other] Discharge Medications: New Eliquis 5 mg Tablet 10 mg PO Q12HR Qty: 14 0RF Rx Instructions: Take 10mg twice daily until the PM dose on 05/20 - then start taking 5mg twice daily starting in the AM of 05/31 Eliquis 5 mg Tablet 5 mg PO Q12HR Qty: 60 0RF clindamycin HCl [Cleocin HCl] 150 mg capsule 450 mg PO Q8H Qty: 15 0RF Continued atorvastatin 20 mg tablet 40 mg PO HS venlafaxine 150 mg capsule,extended release 24hr 150 mg PO QAM Lyumjev KwikPen U-100 Insulin 100 unit/mL insulin pen 1 sliding scale dose SUBCUT AC Rx Instructions: For blood sugar of 150 or less administer 18 units for blood sugar per 25 points greater than 150 administer 1 unit per 25 over Mounjaro 5 mg/0.5 mL pen injector 12.5 mg SUBCUT WEEKLY Patient Comments: on Saturdays tramadol 50 mg Tablet 50 mg PO Q4H PRN (Reason: Severe pain) Qty: 15 0RF metoprolol tartrate 25 mg tablet 12.5 mg PO BID 30 Days Qty: 30 0RF glucosamine-chondroitin 1,500 mg PO DAILY Rx Instructions: 1500mg/1103mg furosemide [Lasix] 40 mg tablet 40 mg PO DAILY ascorbic acid (vitamin C) 1,000 mg tablet 1,000 mg PO .Q12hr Rx Instructions: patient takes gummies omeprazole 40 mg capsule,delayed release(DR/EC) 40 mg PO DAILY ferrous sulfate [iron] 325 mg (65 mg iron) tablet 325 mg PO DAILY Rituxan 10 mg/mL concentrate See Rx Instructions IV [id number] Rx Instructions: intravenously every 6 months; buprenorphine HCl 150 mcg film 150 mcg buccal ONCE PRN (Reason: pain) albuterol sulfate 2.5 mg /3 mL (0.083 %) solution for nebulization 2.5 mg inhalation DAILY PRN (Reason: Shortness Of Breath) cetirizine [All Day Allergy (cetirizine)] 10 mg Tablet 10 mg PO DAILY ergocalciferol (vitamin D2) 50,000 unit PO .COMPLEX Patient Comments: Patient takes on Wednesdays and Sundays Rx Instructions: 50,000 units orally twice a week; prednisone 20 mg tablet 50 mg PO DAILY@0800 lisinopril 20 mg tablet 40 mg PO HS folic acid 1 mg tablet 1 mg PO DAILY hydroxychloroquine 200 mg tablet 200 mg PO BID insulin glargine [Lantus Solostar U-100 Insulin] 100 unit/mL (3 mL) insulin pen 45 unit SUBCUT BID Patient Comments: in the morning and evening pantoprazole 40 mg tablet,delayed release (DR/EC) 40 mg PO HS magnesium 200 mg tablet 400 mg PO HS famotidine [Acid Controller] 20 mg tablet 20 mg PO HS acetaminophen 500 mg Tablet 1,000 mg PO BID albuterol sulfate 90 mcg/actuation HFA aerosol inhaler 2 puff INHALATION Q8H PRN (Reason: shortness of breath or wheezing) gabapentin 300 mg capsule 300 mg PO TID Held diclofenac sodium 75 mg tablet,delayed release (DR/EC) 75 mg PO BID Hold Instructions: Resume on 08/27/25. Hold Diclofenac while taking Eliquis due to increased risk of bleeding. Discuss with your primary care physician regarding alternatives. Discontinued sulfamethoxazole-trimethoprim [Bactrim DS] 800-160 mg tablet 1 tablet PO .3xwk Rx Instructions: Takes in evenings on Thursday, Thursday, and Thursday cyclobenzaprine 10 mg tablet 10 mg PO HS Patient Comments: patient takes in the evening potassium 99 mg tablet 99 mg PO DAILY Date of admission: 05/24/25 14:24 Primary Care Provider: Michael,Lynn Admitting Provider: Frank Monk Attending physician on admission: Frank Monk Condition: Stable Quality VTE Prophylaxis VTE prophylaxis: pharmacologic ordered
== END 2025-05-27 11:12 | disposition home or self-care (01) | DRG 603 ==
LOC: ANHED 14:05 → ANH2MED 15:03
PROVIDERS: Nurse Practitioner Adult Health; Admitting Provider General Practice; Emergency Provider Emergency Medicine; Visit Provider Physician Assistant
DX: L03.115 Cellulitis of right lower limb (principal); I82.4Z1 Acute embolism and thrombosis of unspecified deep veins of right distal lower extremity; G47.33 Obstructive sleep apnea (adult) (pediatric); E11.9 Type 2 diabetes mellitus without complications; M35.9 Systemic involvement of connective tissue, unspecified; I10 Essential (primary) hypertension; E78.00 Pure hypercholesterolemia, unspecified; F32.A Depression, unspecified; I87.8 Other specified disorders of veins; I77.6 Arteritis, unspecified; Z79.52 Long term (current) use of 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s
CPT/HCPCS: 36415; 80048; 80053; 82948; 83605; 83880; 84145; 85025; 87040; 93971; 96365; 96375; 97161; 97165; 99285; J0690; A9270; J1815; J1885; J7030; J7120; J7512

== ENCOUNTER 2025-06-20 15:26 | Emergency (ER) | payer OTHER, SELFPAY ==
[2025-06-20 15:42] VITALS: BP 174/93; PULSE 110; RESP 18; TEMP 36.6; O2SAT 96
--- NOTE | 2025-06-20 17:57 | ED.GENADULT ---
HPI - General Adult General Chief complaint: Unspecified <MERE Taylor Last Filed: 06/20/25 18:06> Stated complaint: I have a pill stuck in my sinuses' <MERE Taylor Last Filed: 06/20/25 18:06> Time Seen by Provider: 06/20/25 17:57 <MERE Taylor Last Filed: 06/20/25 18:06> Focused HPI: Patient is a 50 y/o female, with PMH of vasculitis, blood clots on Eliquis, who presents to the ED with c/o L sided facial/sinus pressure. Patient reports she was taking her normal medications today and began choking on a pill. States she coughed up the pill but then felt it go into her L sinus cavity. Feels pain/pressure in L facial cheek/up towards L eye. Reports yellow/brown discharge from L sided nose. Denies fevers. GENERAL: Well-appearing, morbidly obese with BMI of 51.8, and in no acute distress. HEAD: Normocephalic, atraumatic. ENT: TTP to L facial cheek/maxillary sinus region. Scant amount of clear/light yellow drainage from L nare. CHEST: Clear to auscultation. ?No respiratory distress. HEART: Regular rate and rhythm.? NEURO: ?Alert and oriented x3. Patient screened in triage and initial orders placed.? ?Additional care and disposition to be based upon?diagnostic testing and treatment. <MERE Taylor Last Filed: 06/20/25 18:06> Source: patient <MERE Taylor Last Filed: 06/20/25 18:06> Mode of arrival: ambulatory <MERE Taylor Last Filed: 06/20/25 18:06> Limitations: no limitations <MERE Taylor Last Filed: 06/20/25 18:06> History of Present Illness HPI narrative: Agree with hpi <Grant Negro DO - Last Filed: 06/20/25 23:05> Related Data Home medications: Home Medications ?Medication ?Instructions ?Recorded ?Confirmed ?Last Taken ?Type atorvastatin 20 mg tablet 40 mg PO HS 10/15/20 05/24/25 05/24/25 History insulin lispro-aabc 100 unit/mL 1 sliding scale dose subcut AC 05/25/23 05/24/25 05/24/25 History subcutaneous pen (Lyumjev KwikPen U-100 Insulin) tirzepatide 5 mg/0.5 mL 12.5 mg subcut WEEKLY 05/25/23 05/24/25 12/10/24 History subcutaneous pen injector (Stephan) venlafaxine 150 mg 150 mg PO QAM 05/25/23 05/24/25 05/24/25 History capsule,extended release 24 hr albuterol sulfate 2.5 mg/3 mL 2.5 mg inhalation DAILY PRN 08/10/23 05/24/25 05/24/25 History (0.083 %) solution for nebulization Shortness Of Breath cetirizine 10 mg tablet (All Day 10 mg PO DAILY 08/10/23 05/24/25 05/24/25 History Allergy (cetirizine)) ergocalciferol (vitamin D2) 50,000 unit PO .COMPLEX 08/10/23 05/24/25 05/24/25 History prednisone 20 mg tablet 50 mg PO DAILY@0800 08/10/23 05/24/25 05/24/25 History folic acid 1 mg tablet 1 mg PO DAILY 07/31/24 05/24/25 05/24/25 History hydroxychloroquine 200 mg tablet 200 mg PO BID 07/31/24 05/24/25 05/24/25 History insulin glargine 100 unit/mL (3 45 unit subcut BID 07/31/24 05/24/25 05/24/25 History mL) subcutaneous pen (Lantus Solostar U-100 Insulin) lisinopril 20 mg tablet 40 mg PO HS 07/31/24 05/24/25 05/24/25 History pantoprazole 40 mg tablet,delayed 40 mg PO HS 07/31/24 05/24/25 05/24/25 History release acetaminophen 500 mg tablet 1,000 mg PO BID 09/23/24 05/24/25 05/24/25 History famotidine 20 mg tablet (Acid 20 mg PO HS 09/23/24 05/24/25 05/24/25 History Controller) magnesium 200 mg tablet 400 mg PO HS 09/23/24 05/24/25 05/24/25 History albuterol sulfate 90 mcg/actuation 2 puff inhalation Q8H PRN 10/03/24 05/24/25 05/24/25 History aerosol inhaler shortness of breath or wheezing gabapentin 300 mg capsule 300 mg PO TID 02/27/25 05/24/25 05/24/25 History ascorbic acid (vitamin C) 1,000 mg 1,000 mg PO .Q12hr 05/24/25 05/24/25 05/24/25 History tablet buprenorphine HCl 150 mcg buccal 150 mcg buccal ONCE PRN pain 05/24/25 05/24/25 Unknown History film diclofenac sodium 75 mg 75 mg PO BID 05/24/25 05/24/25 05/24/25 History tablet,delayed release Held on 05/27/25. Instructions: Resume on 08/27/25. Hold Diclofenac while taking Eliquis due to increased risk of bleeding. Discuss with your primary care physician regarding alternatives. ferrous sulfate 325 mg (65 mg 325 mg PO DAILY 05/24/25 05/24/25 05/24/25 History iron) tablet (iron) furosemide 40 mg tablet (Lasix) 40 mg PO DAILY 05/24/25 05/24/25 05/24/25 History glucosamine-chondroitin 1,500 mg PO DAILY 05/24/25 05/24/25 05/24/25 History omeprazole 40 mg capsule,delayed 40 mg PO DAILY 05/24/25 05/24/25 05/24/25 History release rituximab 10 mg/mL See Rx Instructions IV [id number] 05/24/25 05/24/25 Unknown History concentrate,intravenous (Rituxan) <Josette Morillo PA-C - Last Filed: 06/20/25 18:06> Allergies/adverse reactions: Allergies Allergy/AdvReac Type Severity Reaction Status Date / Time amoxicillin AdvReac Unknown Nausea and Verified 06/20/25 19:24 Vomiting glipizide AdvReac Unknown NAUSEA AND Verified 06/20/25 19:24 VOMITING hydrocodone AdvReac Unknown Nausea and Verified 06/20/25 19:24 Vomiting metformin AdvReac Unknown Nausea and Verified 06/20/25 19:24 Vomiting <MERE Taylor Last Filed: 06/20/25 18:06> [facility] Past Medical History Medical History: Medical History Immunocompromised Vasculitis Depression JEREMY on CPAP Hypertension Hypercholesterolemia Diabetes <MERE Taylor Last Filed: 06/20/25 18:06> Surgical History Surgical History: Surgical History H/O arthroscopy H/O myomectomy <MERE Taylor Last Filed: 06/20/25 18:06> Family History Family History: Family History Mother Diabetes mellitus Myocardial infarction Uterine cancer Father Cancer of blood vessel Sibling Diabetes mellitus <MERE Taylor Last Filed: 06/20/25 18:06> Social History Social History: Social History Smoking status: Never smoker Second hand tobacco smoke exposure: Yes (not often) Alcohol intake: never Drinks per week: 1 Substance use: never Substance use type: does not use Do You Feel Safe in your Home?: Yes Lack of Transportation: No Lack of Food: Never True Current Housing: I Have Housing Concerned About Future Housing: No Difficulty Paying Gas/Electric Bills: No Difficulty Paying for Meds: No Currently Unemployed: No Education: Trade/Vocational Certificate Difficulty w/ Childcare or Family Care: No Spiritual care concerns: No <MERE Taylor Last Filed: 06/20/25 18:06> Course Vital Signs Vital signs: Vital Signs Temperature 97.9 F 06/20/25 15:42 Pulse Rate 110 H 06/20/25 15:42 Respiratory Rate 18 06/20/25 15:42 Blood Pressure 174/93 H 06/20/25 15:42 Pulse Oximetry 96 06/20/25 15:42 Temperature 97.8 F 06/20/25 18:02 Pulse Rate 111 H 06/20/25 20:58 Respiratory Rate 20 06/20/25 20:58 Blood Pressure 146/99 H 06/20/25 20:58 Pulse Oximetry 97 06/20/25 20:58 Oxygen Delivery Room Air 06/20/25 19:20 <Josette Morillo PA-C - Last Filed: 06/20/25 18:06> Vital Signs Temperature 97.9 F 06/20/25 15:42 Pulse Rate 110 H 06/20/25 15:42 Respiratory Rate 18 06/20/25 15:42 Blood Pressure 174/93 H 06/20/25 15:42 Pulse Oximetry 96 06/20/25 15:42 Temperature 97.8 F 06/20/25 18:02 Pulse Rate 111 H 06/20/25 20:58 Respiratory Rate 20 06/20/25 20:58 Blood Pressure 146/99 H 06/20/25 20:58 Pulse Oximetry 97 06/20/25 20:58 Oxygen Delivery Room Air 06/20/25 19:20 <Grant Negro DO - Last Filed: 06/20/25 23:05> Medical Decision Making MDM Narrative Medical decision making narrative: MSE by LEVI in triage. <Josette Morillo PA-C - Last Filed: 06/20/25 18:06> MSE by LEVI in triage. 50-year-old female Presenting for possible foreign body and left nose. On initial evaluation patient was in no acute distress afebrile, hemodynamic stable. Differentials include but are not limited to: Sinusitis, nasal foreign body Notable exam findings: Small amount of irritation to the left knee are without visible foreign body Patient was given atomized lidocaine for better visualization and I was not able to identify any specific foreign body or pill within the nasal cavity. I suspect that the pill may have dissolved already and there is no pill to remove at this time. I did discuss the case with Dr. Lopez, ENT, who agrees with this and does recommend the patient aggressively irrigate her nose with saline and he will see her in the clinic tomorrow when she is able to arrive. I discussed this with the patient and she is agreeable to this plan. Given strict return precautions. <Grant Negro DO - Last Filed: 06/20/25 23:05> Vital Signs Vital Signs: Vital Signs Temperature 97.9 F 06/20/25 15:42 Pulse Rate 110 H 06/20/25 15:42 Respiratory Rate 18 06/20/25 15:42 Blood Pressure 174/93 H 06/20/25 15:42 Pulse Oximetry 96 06/20/25 15:42 Temperature 97.8 F 06/20/25 18:02 Pulse Rate 111 H 06/20/25 20:58 Respiratory Rate 20 06/20/25 20:58 Blood Pressure 146/99 H 06/20/25 20:58 Pulse Oximetry 97 06/20/25 20:58 Oxygen Delivery Room Air 06/20/25 19:20 <MERE Taylor Last Filed: 06/20/25 18:06> Vital Signs Temperature 97.9 F 06/20/25 15:42 Pulse Rate 110 H 06/20/25 15:42 Respiratory Rate 18 06/20/25 15:42 Blood Pressure 174/93 H 06/20/25 15:42 Pulse Oximetry 96 06/20/25 15:42 Temperature 97.8 F 06/20/25 18:02 Pulse Rate 111 H 06/20/25 20:58 Respiratory Rate 20 06/20/25 20:58 Blood Pressure 146/99 H 06/20/25 20:58 Pulse Oximetry 97 06/20/25 20:58 Oxygen Delivery Room Air 06/20/25 19:20 <Grant Negro DO - Last Filed: 06/20/25 23:05> Discharge Plan Discharge Clinical Impression: Acute foreign body of nose Qualifiers: Encounter type: initial encounter Qualified Code(s): S00.35XA - Superficial foreign body of nose, initial encounter <MERE Taylor Last Filed: 06/20/25 18:06> Patient Disposition: Home <MERE Taylor Last Filed: 06/20/25 18:06> Condition: Stable <MERE Taylor Last Filed: 06/20/25 18:06> Instructions: Antibiotic Form <MERE Taylor Last Filed: 06/20/25 18:06> Additional Instructions: Aggressively irrigate your nose with saline. Call ENT tomorrow, Dr. Lange will see you tomorrow. Return to the ED for new or worsening symptoms. <Josette Morillo PA-C - Last Filed: 06/20/25 18:06> Patient Language: Sudanese <Josette Morillo PA-C - Last Filed: 06/20/25 18:06> Prescriptions: No Action atorvastatin 20 mg tablet 40 mg PO HS venlafaxine 150 mg capsule,extended release 24hr 150 mg PO QAM Lorenza Flood U-100 Insulin 100 unit/mL insulin pen 1 sliding scale dose SUBCUT AC Rx Instructions: For blood sugar of 150 or less administer 18 units for blood sugar per 25 points greater than 150 administer 1 unit per 25 over Mounjaro 5 mg/0.5 mL pen injector 12.5 mg SUBCUT WEEKLY Patient Comments: on Saturdays tramadol 50 mg Tablet 50 mg PO Q4H PRN (Reason: Severe pain) Qty: 15 0RF metoprolol tartrate 25 mg tablet 12.5 mg PO BID 30 Days Qty: 30 0RF glucosamine-chondroitin 1,500 mg PO DAILY Rx Instructions: 1500mg/1103mg diclofenac sodium 75 mg tablet,delayed release (DR/EC) 75 mg PO BID furosemide [Lasix] 40 mg tablet 40 mg PO DAILY ascorbic acid (vitamin C) 1,000 mg tablet 1,000 mg PO .Q12hr Rx Instructions: patient takes gummies omeprazole 40 mg capsule,delayed release(DR/EC) 40 mg PO DAILY ferrous sulfate [iron] 325 mg (65 mg iron) tablet 325 mg PO DAILY Rituxan 10 mg/mL concentrate See Rx Instructions IV [id number] Rx Instructions: intravenously every 6 months; buprenorphine HCl 150 mcg film 150 mcg buccal ONCE PRN (Reason: pain) Eliquis 5 mg Tablet 5 mg PO Q12HR Qty: 60 0RF clindamycin HCl [Cleocin HCl] 150 mg capsule 450 mg PO Q8H Qty: 15 0RF albuterol sulfate 2.5 mg /3 mL (0.083 %) solution for nebulization 2.5 mg inhalation DAILY PRN (Reason: Shortness Of Breath) cetirizine [All Day Allergy (cetirizine)] 10 mg Tablet 10 mg PO DAILY ergocalciferol (vitamin D2) 50,000 unit PO .COMPLEX Patient Comments: Patient takes on Wednesdays and Sundays Rx Instructions: 50,000 units orally twice a week; prednisone 20 mg tablet 50 mg PO DAILY@0800 lisinopril 20 mg tablet 40 mg PO HS folic acid 1 mg tablet 1 mg PO DAILY hydroxychloroquine 200 mg tablet 200 mg PO BID insulin glargine [Lantus Solostar U-100 Insulin] 100 unit/mL (3 mL) insulin pen 45 unit SUBCUT BID Patient Comments: in the morning and evening pantoprazole 40 mg tablet,delayed release (DR/EC) 40 mg PO HS magnesium 200 mg tablet 400 mg PO HS famotidine [Acid Controller] 20 mg tablet 20 mg PO HS acetaminophen 500 mg Tablet 1,000 mg PO BID albuterol sulfate 90 mcg/actuation HFA aerosol inhaler 2 puff INHALATION Q8H PRN (Reason: shortness of breath or wheezing) gabapentin 300 mg capsule 300 mg PO TID <Josette Morillo PA-C - Last Filed: 06/20/25 18:06> Follow-up/Referrals: Sander Lange MD [Physician, Ear, Nose, Throat] PHYSICIAN,PACKAGING LINE ATTENDANT [Non-Staff, Internal Medicine] <Josette Morillo PA-C - Last Filed: 06/20/25 18:06>
[2025-06-20 18:02] VITALS: BP 152/93; PULSE 122; RESP 28; TEMP 36.6; O2SAT 94
[2025-06-20 19:20] VITALS: BP 153/93; PULSE 110; RESP 20; O2SAT 97
[2025-06-20 19:23] VITALS: BP 153/93; PULSE 110; RESP 20; O2SAT 97
[2025-06-20] MEDS: ACETAMINOPHEN 500 MG TABLET 1000 MG PO (19:34)
[2025-06-20] MEDS: LIDOCAINE 4% PF INJ 5 ML AMP INFILTRATE (20:22)
[2025-06-20 20:58] VITALS: BP 146/99; PULSE 111; RESP 20; O2SAT 97
--- OUTSIDE RECORDS SUMMARY | 2025-06-21 02:52 | XMS_ITS | Encounter Summary ---
Author Organization [facility] Address [address] [place] [address] Care Team Providers Care Cnc Grinder Name Role Phone Masoud Hayes MD Primary Care Provider [phone] Encounter Details Date Type Department Care Team (Late st Contact Info) Description 06/20/2025 External Device Data [facility] ABSTRACTION Provider, Abstract NO ADDRESS ON FILE Social History Tobacco Use Types Packs/Day Years Used Date Smoking Tobacco: Never Smokeless Tobacco: Never Alcohol Use Standard Drinks/Week Comments No 0 (1 standard drink = 0.6 oz pur e alcohol) Comments No Sex and Gender Information Value Date Recorded Sex Assigned at Not on file Legal Sex Female 6:10 AM [employer] Gender Identity Not on file Sexual Orientation Not on file 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
--- OUTSIDE RECORDS SUMMARY | 2025-06-21 02:53 | XMS_ITS | Clinical Summary ---
Author Organization [facility] Address [address] [place] [address] Phone Care Team Providers Care Radiographer Mammographer Name Role Phone Masoud Hayes MD Primary Care Provider [phone] Allergies Active Allergy Reactions Criticality Noted Date [...] mouth daily. 30 Tablet 3 2:47 PM RECORDS CUSTODIAN 08/13/19 23 Active amLODIPine (NORVASC) 2.5 mg tablet Take 1 Tablet (2.5 mg) by mouth daily in the morning. 90 Tablet 3 5:55 PM CDT 05/29/20 23 Active cyclobenzaprine (FLEXERIL) 5 mg Tablet TAKE 1-2 TABLETS BY MOUTH NIGHTLY TO REDUCE MUSCLE CRAMPS 60 Tablet 3 3 3:38 PM RECORDS CUSTODIAN 06/23/20 23 Active hydroxychloroqu ine (PLAQUENIL) 200 mg tablet TAKE 2 TABLETS BY MOUTH ONCE DAILY 60 Tablet 3 3 3:38 PM RECORDS CUSTODIAN 06/23/20 23 Active mycophenolate mofetil (CELLCEPT) 500 mg tablet TAKE 3 TABLETS BY MOUTH TWICE DAILY 180 Tablet 4 3 3:38 PM RECORDS CUSTODIAN 06/23/20 23 Active insulin glargine (LANTUS) 100 [...] for pain 30 Tablet 4 12:19 PM RECORDS CUSTODIAN 04/27/20 24 Active methylPREDNISol one (Medrol, Marvel,) [...] 23 Active fluticasone propionate (FLONASE) 50 mcg/spray [place]un, Suspension nasal inhaler Administer 2 Sprays in each nostril 1 time daily as needed. 02/24/20 23 Active folic acid (FOLVITE) 1 mg tablet 05/03/20 24 Active gabapentin (NEURONTIN) 300 mg capsule 05/03/20 24 Active glucagon (BAQSIMI) 3 mg/spray Falun, Non-Aerosol Administer 1 Falun in each nostril. 11/17/19 24 Active insulin glargine-yfgn 100 unit/mL pen syringe Inject 20 AM and 30 units PM daily; MDD is 70 units. 02/17/20 Active Lyumjev KwikPen U-100 Insulin 100 unit/mL [...] daily. 120 Tablet 3 5 3:51 PM RECORDS CUSTODIAN 06/17/20 24 Active tirzepatide (Mounjaro) 10 mg/0.5 mL Pen Injector Inject 10 mg under the skin every 7 days 2 mL 3 5 4:41 PM RECORDS CUSTODIAN 07/13/20 24 Active isosorbide dinitrate (ISORDIL) 5 mg tablet Take 1 Tablet (5 mg) by mouth 3 times daily. 90 Tablet 5 4:41 PM CDT 10/09/19 25 Active tirzepatide (Mounjaro) 12.5 mg/0.5 mL Pen Injector Inject 0.5 mL (12.5 mg total) under the skin every 7 days 2 mL 3 5 10:04 AM CDT 10/13/19 25 Active inhalational spacing device ([employer] [...] 4 times dialy. 08/09/19 25 Active Insulin [place]o, Disposable, 32 gauge x 5/32 Needle Use to inject insulin up as directed to 5 times daily. 07/13/20 24 Active lancets 33 gauge Use to check blood sugar as directed up to 4 times daily. 07/13/20 24 Active Blood-Glucose Sensor (Starvine G7 Sensor) Device Use for continuous glucose [...] a day 60 Each 01/12/20 25 Active ketorolac tromethamine (TORADOL) 10 mg [...] 5 12:33 PM CDT 02/21/20 25 Active furosemide (LASIX) 40 mg tablet Take 1 tablet (40 mg total) by mouth daily 90 Tablet 1 5 3:08 PM CDT 03/10/20 25 Active potassium CHLORIDE (K-DUR,KLOR-CON M20) 20 mEq Extended Release tablet Take 1 tablet (20 mEq total) by mouth daily 90 Tablet 1 5 3:08 PM CDT 03/10/20 25 Active omeprazole (PriLOSEC) 40 mg Capsule, Delayed Release(E.C.) Take 1 capsule (40 mg total) by mouth daily 90 Capsule 1 5 3:13 PM CDT 03/20/20 25 Active buprenorphine HCL (Belbuca) 150 mcg Film Apply 1 film (150 mcg total) to cheek 2 (two) times a day 60 Each 5 3:02 PM CDT 03/27/20 25 Active budesonide-form oteroL (SYMBICORT) 160-4.5 mcg/actuation HFA Aerosol Inhaler Inhale 2 puffs by mouth 2 (two) times a day. Rinse mouth with water after use. Do not swallow. 10.2 Gram 11 5 2:13 PM CDT 11/02/19 25 2024 Discontinued benzonatate (TESSALON) 200 mg capsule Take 1 Capsule (200 mg) by mouth every 8 hours as needed for cough. 20 Capsule 5 6:51 PM CDT 03/13/20 25 2024 Discontinued Active Problems Patient Care Coordination No te Formatting of this note migh t be different from the original. Smoking Tobacco Packer Hand: Dr. Peraza Problem Noted Date Diagnosed Date Dyspnea 03/19/2012 Overview (03/22/2012): 02/11 EKG: NSR at 92 02/11 echo (TDS): EF 55%, trace MR, PA 24 Edema 03/19/2012 Hyperlipidemia 03/19/2012 Overview (03/19/2012): 02/11 cholesterol 235 HDL 51 LDL 153 triglyceride 155 Diabetes mellitus 03/19/2012 Overview (03/19/2012): 02/11 hemoglobin A1c 8.2 HTN (hypertension) Encounters Date Type Department Care Team Description 06/20/2025 External Device Data [facility] ABSTRACTION Provider, Abstract 05/16/2025 External Device Data [facility] ABSTRACTION Provider, [...] on file Legal Sex Female 6:10 AM RECORDS CUSTODIAN Gender Identity Not on file Sexual Orientation Not on file 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 See individual assays for performing site location. CLINICAL INFORMATION [facility] Comment:None given LAST MENSTRUAL PERIOD [facility] Comment:10/02/2023 PREV PAP: [facility] Comment:NONE GIVEN PREV BX: [facility] [place] Comment:NONE GIVEN SOURCE [facility] [place] Comment:Endocervix ADEQUACY: [facility] Comment: Satisfactory for evaluation. Endocervical/transformation zone component absent. PAP INTERP [facility] Comment: Cytology Results: Negative for intraepithelial lesion or malignancy. COMMENT (PAP TEST) [facility] Comment: This Pap test has been evaluated with computer assisted technology. MOLDER LABELS: Ni Ramirez Comment: MEF, CT(ASCP) CT screening location: [place] [address] [place] [address] EXPLANATORY NOTE [facility] Comment: EXPLANATORY NOTE: The Pap is [...] information. HPV E6/E7 Not Detected Not Detected [facility] Comment: Methodology: Floorwalker-Mediated Amplification This assay detects E6/E7 viral messenger RNA (mRNA) from 14 high-risk HPV types (16,18,31,33,35,39,45,51,52,56,58,59,66,68). Cervical sources are required for HPV testing. If a vaginal source from a patient who has had a total hysterectomy with removal of cervix was submitted, please contact the testing laboratory for alternative testing options. For additional information, please refer to http://education.VivoText/faq/OTE840x8 (This link if provided for information/ educational purposes only.) Test Performed at: [facility] [address] [place] [address] Torin GUZMAN Genital SWAB OF ENDOCERVIX / Unknown 05/17/2024 4:26 PM CDT 05/18/2024 3:48 AM CDT Kendrick Teague MD PATHOLOGY/CYTOLOGY ORDERABLE S Final Result Performing Organization Address City/[facility] Phone Number [facility] [phone] [facility] [address] [facility] [place] [phone] from Last 3 Months or Most Recently Relevant to Health Maintenance Insurance [employer] [facility] Operation Supply Drop [id number] RX [employer] Member Subscriber Plan / Payer (Ef fective 2023-Present) Name:Walt Huitron Relation to Subscriber:Self Name:Walt Huitron Subscriber ID:Not on file Payer ID:Not on file Group ID:[id number] Type:RX Commercial Address: [address] [employer] (INTERNAL) [facility] Care Teams Radiographer Mammographer Relationship Specialty Start Date End Date Masoud Hayes MD PCP - General Internal Medicine 03/08/12
--- OUTSIDE RECORDS SUMMARY | 2025-06-21 02:53 | XMS_ITS | Clinical Summary ---
Author Organization [facility] A Address [address] [place] [address] Care Team Providers Care Business Computers Teacher Name Role Phone Ann Serrano MD Unavailable [phone] Lynn Rodriguez MD Primary Care Provider Allergies [...] Other (See comments) Low 09/01/2018 bruising Medications cetirizine (ZyrTEC) 10 mg tabletIndication s:Acute sinusitis, recurrence not specified, unspecified location Take 1 tablet (10 mg total) by mouth daily 30 tablet 023 Active loratadine (CLARITIN) 10 mg tablet Take 1 tablet (10 mg total) by mouth daily Active gabapentin (NEURONTIN) 300 mg capsule 024 Active folic acid (FOLVITE) 1 mg tablet 024 Active lancets 33 gauge miscIndications: Uncontrolled type 2 diabetes mellitus with hyperglycemia (HCC) Use to check blood sugar as directed up to 4 times daily. 400 each 3 024 Active blood-glucose sensor (Dexcom G7 Sensor) deviceIndication s:Uncontrolled type 2 diabetes mellitus with hyperglycemia (HCC),superintendent terminal (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) Use [...] every 6 (six) hours as needed Active inhalational spacing device spacer 1 each [...] for up to 12 hrs 025 Active famotidine (PEPCID) 20 mg tablet Take 1 tablet (20 mg total) by mouth daily 025 Active dicyclomine (BENTYL) 20 mg tablet Take 1 tablet (20 mg total) by mouth 3 (three) times a day as needed 025 Active LYUMJEV 100 unit/mL pen for injectionIndicat ions:Uncontrolle d type 2 diabetes mellitus with hyperglycemia ([facility]) INJECT SUBCUTANEOUSLY 10 UNITS BEFORE MEALS PLUS SLIDING SCALE 1 UNIT FOR EVERY 25 POINTS >150; MAXIMUM DAILY DOSE: 55 UNITS 60 mL 3 Active albuterol 2.5 mg /3 mL (0.083 %) nebulizer solution USE 1 VIAL VIA NEBULIZER EVERY 6 HOURS NEEDED FOR WHEEZING (RIG SUPERINTENDENT RECOMMENDS NOT EXCEEDING 4 VIALS/DAY) 600 mL 6 025 Active albuterol HFA (PROVENTIL HFA,VENTOLIN HFA,PROAIR HFA) 90 mcg/actuation inhaler USE 2 INHALATIONS BY MOUTH EVERY 4 HOURS NEEDED FOR WHEEZING OR SHORTNESS OF BREATH 51 g 3 025 Active Baqsimi 3 mg/actuation spray,non-aeroso lIndications:Unc ontrolled type 2 diabetes mellitus with hyperglycemia (HCC) INSERT DEVICE TIP INTO 1 NOSTRIL PUSH DEVICE PLUNGER UNTIL GREEN LINE DISAPPEARS. NEEDED IN CASE OF EMERGENCY LOW BLOOD SUGARS. 1 each Active lisinopriL (PRINIVIL,ZESTRI L) 40 mg tablet Take 1 tablet (40 mg total) by mouth daily 90 tablet 025 2025 Active atorvastatin (LIPITOR) 40 mg tabletIndication s:Uncontrolled type 2 diabetes mellitus with hyperglycemia (HCC),Mixed hyperlipidemia Take 1 tablet (40 mg total) by mouth daily 90 tablet 3 025 2025 Active insulin glargine (LANTUS) 100 unit/mL [...] every 7 days 6 mL 3 Active omeprazole (PriLOSEC) 40 mg capsule Take 1 capsule (40 mg total) by mouth daily 90 capsule 1 Active predniSONE (DELTASONE) 10 mg tablet Take 4 tablets (40 mg) by mouth daily for 30 days, THEN 3.5 tablets (35 mg) daily for 30 days, THEN 3 tablets (30 mg) daily. 315 tablet 2024 Active venlafaxine XR (EFFEXOR-XR) 150 mg 24 hr capsule Take 1 capsule (150 mg total) by mouth daily 90 capsule 1 Active metoprolol tartrate (LOPRESSOR) 25 mg immediate release tablet Take 0.5 tablets (12.5 mg total) by mouth 2 (two) times a day 90 tablet 1 025 2025 Active cyclobenzaprine (FLEXERIL) 10 mg tablet Take 1 tablet (10 mg total) by mouth nightly as needed for muscle spasms 30 tablet 1 Active hydroxychloroqui ne (PLAQUENIL) 200 mg tabletIndication s:Rheumatoid Arthritis Take 1 tablet (200 mg total) by mouth 2 (two) times a day 180 tablet Active Eliquis 5 mg tablet Active buprenorphine (Belbuca) 150 mcg film buccal filmIndications: Chronic right-sided low back pain with right-sided sciatica,Sacroil iitis,Radiculopa thy, lumbosacral region Apply 1 each (150 mcg total) to cheek 2 (two) times a day 60 each 1 025 2025 Active sulfamethoxazole -trimethoprim (BACTRIM) 800-160 mg per tablet Take 1 tablet (160 mg of trimethoprim total) by mouth 3 (three) times a week 24 tablet 1 Active potassium chloride ER (KLOR-CON) 20 mEq CR tabletIndication s:Lymphedema Take 1 tablet (20 mEq total) by mouth daily 90 tablet 1 025 2025 Active furosemide (LASIX) 40 mg tabletIndication s:Lymphedema Take 1 tablet (40 mg total) by mouth daily 90 tablet 1 025 2025 Active budesonide-formo teroL (SYMBICORT) 160-4.5 mcg/actuation inhalerIndicatio ns:Moderate persistent asthma without complication Inhale 2 puffs 2 (two) times a day Rinse mouth with water after use. Do not swallow. 30.6 g 3 Active ibuprofen (ADVIL,MOTRIN) 600 mg tabletIndication s:Acute sinusitis, recurrence not specified, unspecified location Take 1 tablet (600 mg total) by mouth every 6 (six) hours as needed for pain, fever or headaches (pain) 60 tablet 023 2024 Discontinued predniSONE (DELTASONE) 10 mg tablet 024 2024 Discontinued(D uplicate order) budesonide-formo teroL (SYMBICORT) 160-4.5 mcg/actuation inhaler Inhale 2 puffs 2 (two) times a day Rinse mouth with water after use. Do not swallow. 1 each 11 025 2024 Discontinued(R eorder) furosemide (LASIX) 40 mg tabletIndication s:Lymphedema Take 1 tablet (40 mg total) by mouth daily 90 tablet 1 025 2024 Discontinued(R eorder) potassium chloride ER (KLOR-CON) 20 mEq CR tabletIndication s:Lymphedema Take 1 tablet (20 mEq total) by mouth daily 90 tablet 1 025 2024 Discontinued(R eorder) benzonatate (TESSALON) 200 mg capsuleIndicatio ns:Acute cough Take 1 capsule (200 mg total) by mouth every 8 (eight) hours as needed for cough 20 capsule 025 2024 Discontinued(P atient Reported) sulfamethoxazole -trimethoprim (BACTRIM DS) 800-160 mg per tablet TAKE 1 TABLET BY MOUTH 3 TIMES WEEKLY 24 tablet 1 025 2024 Discontinued(R eorder) diclofenac DR (VOLTAREN) 75 mg EC tablet TAKE 1 TABLET BY MOUTH TWICE DAILY 180 tablet 3 2024 Discontinued buprenorphine (Belbuca) 150 mcg film buccal filmIndications: Chronic right-sided low back pain with right-sided sciatica,Sacroil iitis,Radiculopa thy, lumbosacral region Apply 1 each (150 mcg total) to cheek 2 (two) times a day 60 each 025 2024 Discontinued(R eorder) hydroxychloroqui ne (PLAQUENIL) 200 mg tablet Take 1 tablet (200 mg total) by mouth 2 (two) times a day 60 tablet 025 2024 Discontinued(R eorder) meclizine (ANTIVERT) 12.5 mg tabletIndication s:Vertigo Take 1 tablet (12.5 mg total) by mouth 3 (three) times a day as needed for dizziness 90 tablet 4 2024 Discontinued(P atient Reported) budesonide-formo teroL (SYMBICORT) 160-4.5 mcg/actuation inhalerIndicatio ns:Moderate persistent asthma without complication Inhale 2 puffs 2 (two) times a day Rinse mouth with water after use. Do not swallow. 1 each 025 2024 Discontinued(R eorder) sulfamethoxazole -trimethoprim (BACTRIM) 800-160 mg per tablet Take 1 tablet (160 mg of trimethoprim total) by mouth 3 (three) times a week 24 tablet 1 025 2024 Discontinued Active Problems Problem Noted Date Diagnosed Date Acute deep vein thrombosis (DVT) of right lower extremity 06/02/2025 Assessment & Plan (06/02/2025 10:00 AM CDT): Continue taking Eliquis 5 mg b.i.d. Follow-up with vascular to assess need for further anticoagulation. Return to the hospital if redness, warmth, and/or pain returns in the right lower leg. Cellulitis of right lower extremity 03/12/2025 Assessment [...] skilled nursing (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 07/13/2024 superintendent terminal 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 user 07/13/2024 Assessment & Plan (07/13/2024 12:22 PM ACOUSTICAL MATERIAL WORKER): - Further complicates diabetes management Has immunity to COVID-19 virus 06/21/2021 Overview (06/30/2022): Pito vaccine 10/05/2020, Moderna booster and Palette bivalent booster Assessment & Plan (06/24/2021 3:28 PM ACOUSTICAL MATERIAL WORKER): Pito vaccine 10/05/2020 and Moderna booster Jun 2021 Major depressive disorder 04/22/2021 Assessment & Plan (01/06/2024 9:09 AM CDT): Stable on current medication regimen. Assessment & Plan (01/17/2022 10:21 AM CDT): Stable on current medication regimen. Assessment & Plan (07/17/2021 2:07 PM ACOUSTICAL MATERIAL WORKER): Better controlled on venlafaxine. Assessment & Plan (04/22/2021 8:25 AM CDT): Restart venlafaxine and warned of side effects and call back if any develop or if no improvement. 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 Unfortunately lab work and skin biopsy inconclusive. Discussed possible rheumatology 2nd opinion here at [facility] and patient will call back if desired. Assessment & Plan (06/15/2023 10:48 AM ACOUSTICAL MATERIAL WORKER): Certainly making a case for underlying vasculitis [...] condition. Assessment & Plan (06/20/2020 9:35 AM ACOUSTICAL MATERIAL WORKER): Unclear etiology but I am thinking of [...] tolerated Assessment & Plan (08/26/2024 6:10 PM ACOUSTICAL MATERIAL WORKER): Body mass index is 49.1 kg/m . BMI Follow-up includes: nutrition counseling, exercise counseling, and education provided. Assessment & Plan (07/13/2024 12:20 PM ACOUSTICAL MATERIAL WORKER): - Increase Mounjaro to 10 mg weekly [...] tolerated. Assessment & Plan (06/08/2023 5:23 PM ACOUSTICAL MATERIAL WORKER): Patient is encouraged to lose weight with a combination of caloric reduction and increased exercise. Various strategies discussed. The long-term risks associated with continued morbid obesity discussed. Assessment & Plan (09/04/2022 2:34 PM ACOUSTICAL MATERIAL WORKER): Patient is encouraged to lose weight with a combination of caloric reduction and increased exercise. Various strategies discussed. The long-term risks associated with continued morbid obesity discussed. Assessment & Plan (08/02/2022 12:16 PM ACOUSTICAL MATERIAL WORKER): Patient is encouraged to lose weight with [...] discussed. Assessment & Plan (07/13/2020 8:34 AM ACOUSTICAL MATERIAL WORKER): Patient is encouraged to lose weight with a combination of caloric reduction and increased exercise. Various strategies discussed. The long-term risks associated with continued morbid obesity discussed. Assessment & Plan (06/20/2020 9:35 AM ACOUSTICAL MATERIAL WORKER): Patient is encouraged to lose weight with a combination of caloric reduction and increased exercise. Various strategies discussed. The long-term risks associated with continued morbid obesity discussed. Assessment & Plan (07/08/2019 8:44 AM ACOUSTICAL MATERIAL WORKER): Patient is encouraged to lose weight with a combination of caloric reduction and increased exercise. Various strategies discussed. The long-term risks associated with continued morbid obesity discussed. Irregular menses 06/03/2019 Allergic rhinitis 07/05/2018 Assessment & Plan (06/02/2025 10:00 AM CDT): Continue taking Claritin. Use Flonase nasal spray once daily. Assessment & Plan (02/23/2023 1:30 PM CDT): Nasal saline spray (Simply saline, Little Remedies, [place], Bynum) 2 second sprays or 2 squeezes into [...] daily Assessment & Plan (07/17/2021 2:07 PM ACOUSTICAL MATERIAL WORKER): Claritin montelukast. Assessment & Plan (04/22/2021 8:25 AM CDT): Currently using Claritin and montelukast. She has not been trying Flonase as her nose is being to congested. Recommended sinus rinses her using a hot warm shower. Could also try Afrin for few days. Assessment & Plan (07/08/2019 8:43 AM ACOUSTICAL MATERIAL WORKER): Add montelukast to her Claritin. She struggles with nasal sprays due to chronic congestion. Assessment & Plan (07/05/2018 9:24 AM ACOUSTICAL MATERIAL WORKER): Try Afrin for 3 days along with [...] mg/dL Assessment & Plan (07/13/2024 12:21 PM ACOUSTICAL MATERIAL WORKER): - Last LDL 103, TG 308, TC [...] triglycerides. Assessment & Plan (09/12/2023 8:12 PM ACOUSTICAL MATERIAL WORKER): Continue statin and optimize glycemic control Assessment & Plan (02/16/2023 8:14 PM CDT): Continue statin and optimize glycemic control Assessment & Plan (01/21/2023 9:50 AM CDT): Continue her atorvastatin and work on diet exercise and check lipids and LFTs before next visit. Assessment & Plan (08/02/2022 12:15 PM ACOUSTICAL MATERIAL WORKER): Well controlled on current therapy and will check a lipid panel and LFTs in 6 months. Assessment & Plan (01/17/2022 10:21 AM CDT): Well controlled on current therapy and will check a lipid panel and LFTs in 6 months. Assessment & Plan (07/17/2021 2:06 PM ACOUSTICAL MATERIAL WORKER): Well controlled on current therapy and will check a lipid panel and LFTs in 6 months. Assessment & Plan (06/24/2021 3:28 PM ACOUSTICAL MATERIAL WORKER): Continue statin and optimize glycemic control Assessment & Plan (12/19/2020 7:53 AM CDT): Continue statin and optimize glycemic control Assessment & Plan (07/13/2020 8:34 AM ACOUSTICAL MATERIAL WORKER): Well controlled on current therapy and will check a lipid panel and LFTs in 6 months. Assessment & Plan (06/08/2020 8:31 AM ACOUSTICAL MATERIAL WORKER): LDL within goal. Continue statin and optimize glycemic control Assessment & Plan (07/08/2019 8:42 AM ACOUSTICAL MATERIAL WORKER): Well controlled on current therapy and will check a lipid panel and LFTs in 12 months. Assessment & Plan (09/01/2018 2:22 PM ACOUSTICAL MATERIAL WORKER): Continue statin, optimize glycemic control Assessment & Plan (07/05/2018 9:23 AM ACOUSTICAL MATERIAL WORKER): Well controlled on current therapy and will check a lipid panel and LFTs in 6 months. Assessment & Plan (08/26/2017 4:27 PM ACOUSTICAL MATERIAL WORKER): Start atorvastatin and check lipids and LFTs in 3-4 months. Call back for results. Vitamin D deficiency 07/02/2017 Assessment & Plan (07/13/2024 12:22 PM ACOUSTICAL MATERIAL WORKER): - Last Vitamin D 42 (12/2023), replete [...] week Assessment & Plan (09/12/2023 8:12 PM ACOUSTICAL MATERIAL WORKER): Continue long-term supplement Assessment & Plan (02/16/2023 8:14 PM CDT): Continue long-term supplement Assessment & Plan (08/02/2022 12:15 PM ACOUSTICAL MATERIAL WORKER): Continue current supplementation and check level in 1 year. Assessment & Plan (07/17/2021 2:06 PM ACOUSTICAL MATERIAL WORKER): Continue current supplementation and check level in 1 year. Assessment & Plan (06/24/2021 3:29 PM ACOUSTICAL MATERIAL WORKER): Continue long-term supplement Assessment & Plan (12/19/2020 7:53 AM CDT): Continue long-term supplement Assessment & Plan (07/13/2020 8:33 AM ACOUSTICAL MATERIAL WORKER): Continue current supplementation and check level in 1 year. Assessment & Plan (06/08/2020 8:31 AM ACOUSTICAL MATERIAL WORKER): Vitamin-D level within goal, continue chronic supplement Assessment & Plan (07/08/2019 8:42 AM ACOUSTICAL MATERIAL WORKER): Continue current supplementation and check level in 1 year. Assessment & Plan (06/03/2019 8:24 AM CDT): Recently ran out of supplement, so we will restart and check her level today. Also check B12 Assessment & Plan (09/01/2018 2:22 PM ACOUSTICAL MATERIAL WORKER): Continue supplement Assessment & Plan (07/05/2018 9:23 AM ACOUSTICAL MATERIAL WORKER): Continue current supplementation and check level in 1 year. Assessment & Plan (08/26/2017 4:26 PM ACOUSTICAL MATERIAL WORKER): Continue current supplementation and check level in [...] that I am available via phone or [facility] if they have any concerns for hypo/hyperglycemia, [...] that I am available via phone or [facility] if they have any concerns for hypo/hyperglycemia, medication refills, etc. Assessment & Plan (08/26/2024 6:10 PM ACOUSTICAL MATERIAL WORKER): Assessment & Plan (07/13/2024 12:20 PM ACOUSTICAL MATERIAL WORKER): - Diabetes is complicated by hyperlipidemia, hypertension, [...] that I am available via phone or [facility] if they have any concerns for hypo/hyperglycemia, [...] Return visit 3 months to see the JET HANDLER/PA, 6 months to see me. Assessment & [...] for her Semglee. She is going to clam picker today after this visit. - Insurance [...] that I am available via phone or [facility] if they have any concerns for hypo/hyperglycemia, medication refills, etc. Assessment & Plan (09/12/2023 8:13 PM ACOUSTICAL MATERIAL WORKER): Very high glucoses; multifactorial including steroid therapy, [...] daily. Assessment & Plan (06/24/2021 3:29 PM ACOUSTICAL MATERIAL WORKER): Much improved but needs a little more basal insulin. Assessment & Plan (12/19/2020 7:53 AM CDT): Multiple medications, but now requires insulin. We can gradually adjust her Lantus based on her clinical response. Assessment & Plan (06/08/2020 8:32 AM ACOUSTICAL MATERIAL WORKER): Glucoses somewhat better now that she is [...] motivator. Assessment & Plan (07/08/2019 8:43 AM ACOUSTICAL MATERIAL WORKER): Continue increased dose of Ozempic and also continue Invokana. Importance of dietary changes increase exercise weight loss discussed. Follow-up with her top carrier as they direct. Assessment & Plan (06/03/2019 8:25 AM CDT): Somewhat suboptimal, would benefit from increasing Ozempic and continuing efforts with diet and lifestyle. Needs follow-up labs Assessment & Plan (09/01/2018 2:22 PM ACOUSTICAL MATERIAL WORKER): Glucoses a little high, but she has bruising with Victoza so she may benefit by changing to weekly Ozempic, which is a little stronger, as well. Jardiance is been ineffective, so we may need to provide preauthorization for Invokana Assessment & Plan (07/05/2018 9:23 AM ACOUSTICAL MATERIAL WORKER): A1c above goal. We stressed importance of increased exercise, reduce calories, weight loss. Could consider switching Victoza to ozempic. Otherwise does not tolerate metformin or sulfonylureas. May need insulin soon. She is directed to follow up with her top carrier more quickly than her next scheduled appointment in November. Assessment & Plan (08/26/2017 4:26 PM ACOUSTICAL MATERIAL WORKER): Continue current medication regimen and follow up with her top carrier as they direct. Low carb diet weight [...] mmHg Assessment & Plan (07/13/2024 12:21 PM ACOUSTICAL MATERIAL WORKER): - Above goal today - Encouraged her [...] monitor. Assessment & Plan (06/08/2023 5:25 PM ACOUSTICAL MATERIAL WORKER): Stop amlodipine with current issues of swelling. Pressure currently well controlled and should monitor at home Assessment & Plan (01/21/2023 9:49 AM CDT): Blood pressure well controlled on lisinopril Assessment & Plan (09/04/2022 2:34 PM ACOUSTICAL MATERIAL WORKER): Blood pressure well controlled on her lisinopril. Assessment & Plan (08/02/2022 12:15 PM ACOUSTICAL MATERIAL WORKER): Increase lisinopril to 20 mg daily. Monitor blood pressure at home call back if no improvement. Assessment & Plan (01/17/2022 10:21 AM CDT): Well controlled on the current regimen. Avoidance of salt, proper body weight, and routine exercise recommended. Assessment & Plan (07/17/2021 2:06 PM ACOUSTICAL MATERIAL WORKER): Well controlled on the current regimen. Avoidance of salt, proper body weight, and routine exercise recommended. Assessment & Plan (04/22/2021 8:24 AM CDT): Well controlled on the current regimen. Avoidance of salt, proper body weight, and routine exercise recommended. Assessment & Plan (07/13/2020 8:34 AM ACOUSTICAL MATERIAL WORKER): Well controlled on the current regimen. Avoidance of salt, proper body weight, and routine exercise recommended. Assessment & Plan (07/08/2019 8:42 AM ACOUSTICAL MATERIAL WORKER): Well controlled on the current regimen. Avoidance of salt, proper body weight, and routine exercise recommended. Assessment & Plan (09/01/2018 2:21 PM ACOUSTICAL MATERIAL WORKER): Blood pressure close to target, working on diet and lifestyle Assessment & Plan (07/05/2018 9:23 AM ACOUSTICAL MATERIAL WORKER): Well controlled on the current regimen. Avoidance of salt, proper body weight, and routine exercise recommended. Assessment & Plan (08/26/2017 4:25 PM ACOUSTICAL MATERIAL WORKER): Well controlled on the current regimen. Avoidance [...] montelukast Assessment & Plan (08/26/2024 6:08 PM ACOUSTICAL MATERIAL WORKER): Recent exacerbation due to CAP followed by RSV Symptoms improved Continue present plan and medication--albuterol prn, montelukast Assessment & Plan (07/13/2020 8:36 AM ACOUSTICAL MATERIAL WORKER): Doing well on her Symbicort. Okay to discontinue and use albuterol only as needed. Restart Symbicort if uses her albuterol more than 2 times a week. JEREMY (obstructive sleep apnea) 04/01/2012 Overview (11/12/2017): Description: CPAP Assessment & Plan (01/06/2024 9:08 AM CDT): Patient is compliant with the CPAP machine and gets symptomatic relief. Assessment & Plan (08/02/2022 12:15 PM ACOUSTICAL MATERIAL WORKER): Patient is compliant with the CPAP machine and gets symptomatic relief. Assessment & Plan (07/17/2021 2:06 PM ACOUSTICAL MATERIAL WORKER): Repeat sleep study confirmed obstructive sleep apnea [...] syndrome. Assessment & Plan (07/13/2020 8:34 AM ACOUSTICAL MATERIAL WORKER): Patient is compliant with the CPAP machine and gets symptomatic relief. Assessment & Plan (07/08/2019 8:42 AM ACOUSTICAL MATERIAL WORKER): Patient is compliant with the CPAP machine and gets symptomatic relief. Female infertility associated with anovulation 0 09/21/2011 Resolved Problems Problem Noted Date Diagnosed Date Resolved Date Decreased functional mobility and endurance 12/29/2024 02/15/2025 Uncontrolled diabetes mellit us with hyperglycemia 08/14/2024 12/21/2024 Acute hypoxic respiratory failure 08/13/2024 12/21/2024 Assessment & Plan (08/26/2024 6:09 PM ACOUSTICAL MATERIAL WORKER): Recent hospitalization likely for CAP followed by [...] legs Assessment & Plan (06/15/2023 10:47 AM ACOUSTICAL MATERIAL WORKER): Improved after addition of doxycycline to her Bactrim. Call back if symptoms worsen after doxycycline runs out Assessment & Plan (06/08/2023 5:25 PM ACOUSTICAL MATERIAL WORKER): Seems like cellulitis slow to improve either [...] 12/21/2024 Assessment & Plan (09/04/2022 2:35 PM ACOUSTICAL MATERIAL WORKER): No signs of neurological abnormality on examination [...] Continue other medications as directed by her top carrier. Diet exercise discussed. Hopefully may be able to wean prednisone in the near future as well. Assessment & Plan (06/15/2023 10:48 AM ACOUSTICAL MATERIAL WORKER): She knows that the steroids will exacerbate her hyperglycemia and should be in contact with her top carrier for management. Assessment & Plan (06/08/2023 5:26 PM ACOUSTICAL MATERIAL WORKER): Poor control of her diabetes prior to this hospitalization and even worse now on prednisone. Follow-up with her top carrier for management. Diet exercise weight loss recommended. Assessment & Plan (01/21/2023 9:50 AM CDT): Blood sugars remain above goal. Hopefully the recent addition of mounjaro will help significantly. Discuss up titration of this and her mealtime insulin with her top carrier. Diet exercise discussed. Check A1c and fasting blood sugar before next visit. Assessment & Plan (08/02/2022 12:16 PM ACOUSTICAL MATERIAL WORKER): A1c poorly controlled. Importance of diet exercise weight loss discussed at length. Continue her Ozempic and insulin and needs to contact her top carrier soon as possible for guidance on further therapy. Assessment & Plan (01/17/2022 10:22 AM CDT): Patient aware A1c grossly uncontrolled. Must work on diet exercise and weight loss. She has to get back on her insulin and should discuss this today with her top carrier. Risks posed her health with poor glycemic control discussed. Assessment & Plan (07/13/2020 8:34 AM ACOUSTICAL MATERIAL WORKER): A1c above goal. Importance of diet exercise weight loss discussed. Continue current medication regimen and follow-up with her top carrier as they direct. Dyslipidemia 06/03/2019 07/13/2020 Healthcare [...] yearly. Colonoscopy due March 2027. Follow-up the underwriter for breast exam pelvic exam as they direct. Will see her back in about 6 months sooner if needed. Assessment & Plan (08/02/2022 12:17 PM ACOUSTICAL MATERIAL WORKER): Flu shot each May. Tetanus booster every 10 years. Pneumovax completed. COVID booster recommended. Mammogram yearly. Colonoscopy due March 2027. Follow-up the underwriter for breast exam pelvic exam as they direct. Will see her back in 6 months with lab sooner if needed. Assessment & Plan (07/17/2021 2:08 PM ACOUSTICAL MATERIAL WORKER): Flu shot each May. Tetanus booster every 10 years. Pneumovax completed. COVID vaccine completed. Mammogram yearly. Colonoscopy ordered and she should verify coverage before proceeding. Follow-up the underwriter for breast exam and pelvic exam as they direct. We will see her back in 1 year for physical and fasting lab sooner if needed. Assessment & Plan (07/13/2020 8:35 AM ACOUSTICAL MATERIAL WORKER): Flu shot each May. Tetanus booster every 10 years. She has had a Pneumovax. Mammogram was abnormal back in August and she has delayed follow-up studies until now and she is urged to get her diagnostic and ultrasound studies done at her earliest convenience and she is aware of the risks posed her health with delay in proceeding. Follow-up the underwriter for breast exam and pelvic exam as they direct. We will see her back in 1 year for wellness visit fasting lab sooner if needed. Assessment & Plan (07/08/2019 8:43 AM ACOUSTICAL MATERIAL WORKER): Flu shot each May. Tetanus booster every 10 years. Mammogram ordered. Will see her back in 1 year for physical and fasting lab sooner if needed. Assessment & Plan (07/05/2018 9:24 AM ACOUSTICAL MATERIAL WORKER): Tetanus booster today. Flu shot each May. Mammogram ordered. Patient should follow-up the underwriter breast exam and pelvic exam. We will see her back in 1 year for wellness visit fasting lab sooner if needed. Assessment & Plan (08/26/2017 4:27 PM ACOUSTICAL MATERIAL WORKER): Flu shot each May. Tetanus booster every 10 years. See her underwriter for breast exam mammogram and Pap smear [...] aerobics Assessment & Plan (08/26/2017 4:28 PM ACOUSTICAL MATERIAL WORKER): Patient is encouraged to lose weight with [...] Date Type Department Care Team Description 06/20/2025 Telephone [facility] Primary Care at [facility] - [address] [place] [address] [phone] Lynn Rodriguez MD Medical Question/Miscellan eous 06/09/2025 Telephone [facility] Primary Care at [facility] - [address] [place] [phone] Lynn Rodriguez MD 06/06/2025 9:23 AM ACOUSTICAL MATERIAL WORKER - 06/06/2025 11:59 PM ACOUSTICAL MATERIAL WORKER Hospital Encounter [facility] [address] [place] [address] Darshan Frank NP Chronic right-sided low back pain with right-sided sciatica (Primary Dx); Spinal stenosis of lumbar region with neurogenic claudication Discharge Disposition: Discharge to home or self care 06/06/2025 Documentation [facility] [address] [place] [id number] Clayton Basurto RN Prior Auth (Belbuca 150mcg films) 06/02/2025 9:00 AM CDT Office Visit [facility] Primary Care at [facility] - [address] [place] [address] [place] [phone] Jesica Mina NP Acute deep vein thrombosis (DVT) of right lower extremity, unspecified vein (HCC) (Primary Dx); Allergic rhinitis, unspecified seasonality, unspecified trigger; Vertigo 05/31/2025 Telephone [facility] Primary Care at [facility] - [address] [place] [address] [place] [phone] Lynn Rodriguez MD MARY Questions 05/23/2025 Telephone [facility] Care at [address] [place] [address] Jory Sage NP 05/22/2025 11:39 AM CDT - 05/22/2025 11:59 PM CDT Hospital Encounter [facility] [address] [place] [address] Adam Corrales MD Radiculopathy, lumbosacral region [M54.17] (Primary Dx); Spinal stenosis of lumbar region with neurogenic claudication Discharge Disposition: Discharge to home or self care 05/15/2025 Telephone [facility] [place] [address] Tigist Shultz 04/18/2025 Telephone [facility] [address] [place] [address] Tigist Shultz 04/07/2025 9:30 AM CDT Office Visit [facility] Sleep Medicine at [address] [place] [address] Iqra Jensen MD JEREMY (obstructive sleep apnea) (Primary Dx); Hypersomnia; Obesity, unspecified class, unspecified obesity type, unspecified whether serious comorbidity present; Restless leg syndrome 04/06/[address] [facility] [address] [facility] [address] [place] [phone] Iqra Jensen MD 04/04/2025 11:30 AM CDT Lab [facility] Endocrinology Metabolism and Lipid [address] [facility] 5th [address] [place] [address] Elevated liver function tests 04/04/2025 11:00 AM CDT Office Visit [facility] Rheumatology [address] [facility] 5th Floor [address] [place] [phone] Lucian Trinidad MD PhD superintendent terminal 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 user (Primary Dx); Dermatitis 04/04/2025 Results Follow-Up [facility] Endocrinology Metabolism and Lipid [address] [facility] 13th [address] [place] [phone] Shirley Hicks PA Hepatic function panel 04/04/2025 Telephone [facility] at [address] [address] Ele Vazquez, PT 03/30/2025 Telephone [facility] Sleep Medicine at [address], [place] [address] Iqra Jensen MD 03/29/2025 Results Follow-Up [facility] Gastroenterology at [address] [place] [address] Ad Camacho MD Surgical pathology 03/28/2025 7:00 PM CDT - 03/28/2025 11:59 PM CDT Hospital Encounter [facility] [address] [place] [address] JEREMY (obstructive sleep apnea) Discharge Disposition: Discharge to home or self care 03/27/2025 Telephone [facility] at [address] [address] Adelina Little, PT Appointment 03/23/2025 1:00 PM CDT - 03/23/2025 11:59 PM CDT Hospital Encounter [facility] [address] [place] [address] Amada Baldwin NP Spinal stenosis of lumbar region with neurogenic claudication (Primary Dx); Radiculopathy, lumbosacral region; Uncontrolled type 2 diabetes mellitus with hyperglycemia (HCC); Benign hypertension Discharge Disposition: Discharge to home or self care 03/23/2025 Telephone [facility] at [address] [place] [address] Adelina Little, PT Cancel (08/05 NS/Cx - Date PT Treatment Started: 12/29/2024/) 03/21/2025 2:30 PM CDT Office Visit [facility] Pulmonary at [address] [place] [address] Josiah Doan DO Chronic hypoxic respiratory failure (HCC) (Primary Dx) from Last 3 Months Immunizations Immunization Administration Dates Next Due Influenza, Quadrivalent, Rosita l Culture-based MDCK, Preservative Free, Antibiotic Free, Intramuscular 05/13/2023,05/23/2022 Influenza, Quadrivalent, Spl it, Intramuscular 05/03/2015 Influenza, Quadrivalent, Spl it, Preservative Free, Intramuscular 05/16/2020,05/07/2018 Influenza, Trivalent, Preser vative Free, Intramuscular 09/24/2024 Influenza, Unspecified 05/16/2021,2020,04/22/2021(Defer red: Patient Refused),03/19/2021(Deferred: Patient Refused),05/12/2019,05/07/2017 Chargeback (J&J) SARS-CoV-2 Vaccination 10/05/2020 Pneumococcal Conjugate Pcv20 05/30/2024,04/06/20 Pneumococcal Polysaccharide PPV23 08/03/2010, Td, adsorbed 07/05/2018 [...] - Hx Other Medical Diabetes; Comme nts: CLW 04/11/2014 - Hx Other Medical Seasonal allerg ies; Comments: CLW 04/11/2014 - Hx Other Medical Sleep apnea; Co mments: [facility] 04/11/2014 - Hx Other Medical 2013 Internal derang ement of the knee; Comments: [facility] 04/11/2014 - Hx Other Medical Depression; Com ments: [facility] 04/11/2014 - Hx Other Medical D and C Hx Other Medical D/C 02/2016 Hx Other Medical R knee meniscal repair 05/2014 Hx Other Medical Large uterine f ibroid resected 04/2015, uterine darby Hx Other Medical IVF transfer 2015 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 Denies 03/20/2025 Comments No Sex and Gender Information Value Date Recorded Sex Assigned at Not on file Legal Sex Female 11:54 PM ACOUSTICAL MATERIAL WORKER Gender Identity Female 09/19/2020 8:37 AM ACOUSTICAL MATERIAL WORKER Sexual Orientation Straight 09/19/2020 8: 37 AM ACOUSTICAL MATERIAL WORKER Obstetrics History Para Term AB IAB SAB Ectopic Multiple Livin g Live Births 0 0 0 Last Filed Vital Signs Vital Sign Reading Time Taken Comments Blood Pressure 147/94 06/06/2025 9:34 AM ACOUSTICAL MATERIAL WORKER Pulse 123 06/06/2025 9:34 AM ACOUSTICAL MATERIAL WORKER Temperature 36.5 C (97.7 F) 06/02/2025 9:10 AM CDT Respiratory Rate 18 06/06/2025 9:34 AM ACOUSTICAL MATERIAL WORKER Oxygen Saturation 99% 06/06/2025 9:34 AM ACOUSTICAL MATERIAL WORKER Inhaled Oxygen Concentration - - Weight 145.4 kg (320 lb 8 oz) 06/02/2025 9:10 AM CDT Height 167.6 cm (5' 6) 06/02/2025 9:10 AM CDT Body Mass Index 51.73 06/02/2025 9:10 AM CDT Plan of Treatment Health Maintenance Due Date Last Done Comments Cervical Cancer Screening 1976 Hepatitis C Screening 1976 Hepatitis B Screening 1994 Dilated Eye Exam 11/10/2024 11/10/2022, 03/2022, 04/23/2021, Additional history exists Regular Well Visit/Exam 18-64 01/04/2025, 07/18/2022, 07/17/2021, Additional history exists Foot Exam 04/06/2025 04/06/2024, 07/03, 03/26/2021, Additional history exists Hemoglobin A1C 07/11/2025 01/09/2025, 08/03, 07/13/2024, Additional history exists Covid-19 Vaccine (2024-09 6 season) 2025 05/02/2025, 05/13/2023, 05/23/2022, Additional history exists Albumin Creatinine Ratio, Urine 01/09/2026 01/09/2025, 12/29/2023, 12/29/2023, Additional history exists Breast Cancer Screening-Mammogram 01/09/2026 01/09/2025, 12/29/2023, 02/25/2023, Additional history exists Lipid Panel 01/09/2026 01/09/2025, 12/02, 12/29/2023, Additional history exists eGFR 02/15/2026 02/15/2025, 06/0 04/2025, 11/09/2024, Additional history exists Depression Screening 06/02/2026 06/02/2025, 02/15/2025, 12/21/2024, Additional history exists Colon Cancer Screening-Colonoscopy 04/02/20272021 DTaP/Tdap/Td Vaccine (4 - Td or Tdap) 03/31/2035 03/31/2025, 07/05/2018, 10/04/2007 Pneumococcal vaccine <65 Completed 024, 04/06/2024, 08/03/2010, Additional history exists Influenza Vaccine Completed 05/02/2025, , 05/13/2023, Additional history exists Zoster Vaccine Completed 05/02/2025, 03/31/2025 Procedures Procedure Name Priority Date/Time Associated Diagnosis Comments PAIN MGMT IMAGING LUMBAR/SACRAL SELECTIVE NERVE ROOT INJ (TFE) RIGHT Schedule Routine, Read Routine (OP Routine) 05/22/2025 12:41 PM CDT Spinal stenosis of lumbar region with neurogenic claudication HEPATIC FUNCTION PANEL Routine 04/04/2025 11:23 AM CDT Elevated liver function tests PSG (SIMPLE) Routine 03/30/2025 JEREMY (obstructive sleep apnea) COMPREHENSIVE METABOLIC PANEL Routine 02/15/2025 10:41 AM CDT Cutaneous vasculitis LIPID PANEL [...] Lumbar/Sacral Selective Nerve Root INJ (TFE) Right (03409) (05/22/2025 12:41 PM CDT) Narrative [facility] - 05/22/2025 12:46 PM CDT The images from this study are not interpreted by Radiology. Please refer to the physician's procedure / OR operative note. us Amada Baldwin JET HANDLER IMG PAIN MGMT PROCEDURE S Final Result [facility] * Hepatic function panel (04/04/2025 11:23 AM CDT) Direct Bilirubin 0.11 0.00 - 0.20 mg/dL [facility] Comment:Please note new refe rence range for [...] CDT 04/04/2025 12:43 PM CDT Shirley Teixeira [facility] LAB BLOOD ORDERABLE S Final Result [facility] * PSG (03/30/2025) Impressions Iqra Jensen MD - 03/30/2025 Baseline Polysomnogram History: Camila Huitron is a 49 y.o. female who presents for baseline polysomnogram. Reason for sleep study: Obstructive sleep apnea [place] sleepiness score: 6 Weight: 311 lbs BMI: 50.23 Procedure: This overnight diagnostic baseline polysomnogram was performed with the manufacturing technologist in attendance. Patient is studied with [...] scored according to the criteria from The [employer] (AASM) Manual for [...] Clinical correlation is recommended. Iqra Jensen MD [facility] Sleep Medicine Narrative Iqra Jensen MD - 03/30/2025 In lab study is ready for review Iqra Jensen MD [facility] ORDERABLES Final Re sult * (ABNORMAL) Comprehensive metabolic panel (02/15/2025 10:41 [...] BLOOD ORDERABLE S Final Result [facility] [address] [phone] * Albumin Creatinine Ratio, Urine (01/09/2025 12:30 PM CDT) Albumin Ur 37.8 mg/L Comment: Interpretive Data No reference range established. Current interpretive data was last revised 2018. Creatinine Ur 353.8 mg/dL [facility] Comment: Interpretive Data No reference range established. Current interpretive data was last revised 2018. Albumin Creatinine Ratio, Ur 11 1 - 29 mg/g [facility] Urine 01/09/2025 12:3 0 PM CDT 01/09/2025 1:18 PM CDT Shirley CHUN LAB URINE ORDERABLE S Final Result [facility] Department [place] [address] * (ABNORMAL) Lipid panel (01/09/2025 12:30 PM [...] revised on 2018. Triglycerides 334(H) <=149 mg/dL [facility] Comment: Interpretive Data Ages < or = [...] revised on 2018. HDL 75 >=40 mg/dL [facility] Comment: Interpretive Data Ages < or = [...] on 2018. LDL, calculated 127 <=129 mg/dL [facility] Comment: Interpretive Data Ages < or = [...] 3. Sundeep M et al. PHILIP Cardiol. 2019December 01;5(5):540-548. doi: 10.1001/jamacardio.2020.0013 Current Interpretive Data was last revised on 2024. Non-HDL Cholesterol 185 mg/dL [facility] Comment: Interpretive Data Ages < or = [...] last revised on 2018. Chol/HDL ratio 3 [facility] Blood 01/09/2025 12:3 0 PM CDT 01/09/2025 1:18 PM CDT Shirley Teixeira [facility] LAB BLOOD ORDERABLE S Final Result [facility] Department [place] [address] * Screening Mammogram Bilateral W Vincenzo (01/09/2025 [...] Blood 01/09/2025 10:4 4 AM CDT Shirley Teixeira [facility] LAY POINT OF CARE TEST ORDERABLES Final Result * Diabetic Eye Exam (11/10/2022) Generic External Data Provider HEALTH MAINTENANC E Final Result * COLONOSCOPY (04/02/2022 9:28 AM CDT) Anatomical Region Laterality Modality Other Narrative Procedure Note Ad Camacho MD - 04/02/2022 9:28 AM CDT [facility] Patient Name: Camila Huitron Procedure [...] scope was passed under direct vision. TheColonoscope [id number] was introduced through the anus and advanced [...] 9:28 AM Procedure Code(s): --- Professional --- 61633, Colonoscopy, flexible; with biopsy, single or multiple Diagnosis Code(s): --- Professional --- Z12.11, Encounter for screening for malignant neoplasm of colon D12.3, Benign neoplasm of transverse colon (hepatic flexure orsplenic flexure) D12.4, Benign neoplasm of descending colon D12.8, Benign neoplasm of rectum CPT copyright 2020 [employer]. All rights reserved. The codes documented in this report are preliminary and upon industrial court magistrate reviewmay be revised to meet current compliance requirements. Recognized by the [employer] Society for G[employer]oscopy for promoting quality in endoscopy Ad Camacho MD ENDOSCOPY PROCEDURES Final Resul t * Diabetic Foot Exam (03/26/2021) Impressions Art Staley MA - 03/26/2021 In care everywhere Historical Provider HEALTH MAINTENANCE Final Result from Last 3 Months or Most Recently Relevant to Health Maintenance Insurance [facility] [id number] [place] [id number] Advance Directives For more information, please contact: [phone] * Full Code (Latest Code Status on [...] AM 04/02/2022 9:27 AM Care Teams Business Computers Teacher Relationship Specialty [place] [id number] [address] PCP - General Internal Medicine 04/06/24 Ann Serrano MD Referring Physician Endocrinology Diabetes & Metabolism 06/08/20
--- OUTSIDE RECORDS SUMMARY | 2025-06-21 02:54 | XMS_ITS | Encounter Summary ---
Author Organization [facility] Address [address] [place] [address] Phone Care Team Providers Care Pharmacy Benefit Manager Name Role Phone Kishor Saleh MD Primary Care Provider [phone] Ann Serrano MD Unavailable [phone] No, Physician Primary Care Provider [phone] Kishor Saleh MD Primary Care Provider [phone] Lynn Rodriguez MD Primary Care Provider Encounter Details Date Type Department Care Team (Late st Contact Info) Description 09/30/[address] [facility] ProviderStephenie MD [address] [place] [address] Social History Tobacco Use Types Packs/Day Years Used Date Smoking Tobacco: Never Smokeless Tobacco: Never Alcohol Use Standard Drinks/Week Comments No 0 (1 standard drink = 0.6 oz pur e alcohol) Comments Unknown Sex and Gender Information Value Date Recorded Sex Assigned at Not on file Legal Sex Female 11:54 PM PRODUCE ASSISTANT Gender Identity Female 09/19/2020 8:37 AM PRODUCE ASSISTANT Sexual Orientation Straight 09/19/2020 8: 37 AM PRODUCE ASSISTANT documented as of this encounter Plan of Treatment Not on file documented as of this encounter Procedures Procedure Name Priority Date/Time Associated Diagnosis Comments DISCHARGE LABORATORY CUMULATIVE REPORT 09/30/2017 12:00 AM PRODUCE ASSISTANT documented in this encounter Results * DISCHARGE LABORATORY CUMULATIVE REPORT (09/30/2017 12:00 AM PRODUCE ASSISTANT) Narrative 09/30/2017 12:00 AM PRODUCE ASSISTANT Ordered by an unspecified provider. us Historical Provider LAB BLOOD ORDERABLES Flora l Result documented in this encounter Visit Diagnoses Not on filedocumented in this encounter Additional Health Concerns Infection Onset Date Last Indicated Resolved Time COVID: Suspected 08/13/2022 08/13/2022 08/13/2022 1:16 PM PRODUCE ASSISTANT COVID: Suspected 11/07/2024 11/07/2024 11/07/2024 2:20 PM CDT COVID: Suspected 03/13/2025 03/13/2025 03/13/2025 3:44 PM CDT documented as of this encounter Care Teams Pharmacy Benefit Manager Relationship Specialty Start Date End Date Kishor Saleh MD PCP - General 09/28/08 11/16/23 No, Physician PCP - General 11/17/23 12/28/23 Kishor Saleh MD [address] [facility] [address] [place] [address] PCP - General Internal Medicine 12/29/23 04/05/24 [place] [address] [facility] [address] [place] [address] PCP - General Internal Medicine 04/06/24 Ann Serrano MD Referring Physician Endocrinology Diabetes & Metabolism 06/08/20 documented as of this encounter
--- OUTSIDE RECORDS SUMMARY | 2025-06-21 02:54 | XMS_ITS | Encounter Summary ---
Author Organization [facility] Address [address] [place] [address] Care Team Providers Care Pta Name Role Phone Ann Serrano MD Unavailable [phone] Lynn Rodriguez MD Primary Care Provider Reason for Visit * Reason Onset Date Comments Medical Question/Miscellaneous 06/20/2025 Encounter Details Date Type Department Care Team (Late st Contact Info) Description 06/20/[address] [facility] Primary Care at [facility] - [address] [place] [phone] [place] [id number] [address] Medical Question/Miscellaneous Social History Tobacco Use Types Packs/Day Years [...] on file Legal Sex Female 11:54 PM LBD TEACHER Gender Identity Female 09/19/2020 8:37 AM LBD TEACHER Sexual Orientation Straight 09/19/2020 8: 37 AM LBD TEACHER documented as of this encounter Miscellaneous Notes * Telephone Encounter - Genny Watters - 06/20/2025 1:34 PM CST Medical Question/Miscellaneous Caller???s Concern: Vein and Vascular calling stating the received a referral for this patient for DVT treatment. This patient is not a candidate for treatment since they are already on the recommended adequate medications needed for DVT. Does message need to be routed? Yes-FYI Only TEACHER documented in this encounter Plan of Treatment Not on file documented as of this encounter Visit Diagnoses Not on filedocumented in this encounter Care Teams Pta Relationship Specialty [place] [address] [address] PCP - General Internal Medicine 04/06/24 Ann Serrano MD Referring Physician Endocrinology Diabetes & Metabolism 06/08/20 documented as of this encounter
--- OUTSIDE RECORDS SUMMARY | 2025-06-21 02:54 | XMS_ITS | Encounter Summary ---
Author Organization [facility] Address [address] [place] [address] Care Team Providers Care Lone Lead Lineman Name Role Phone Ann Serrano MD Unavailable [phone] Lynn Rodriguez MD Primary Care Provider Reason for Visit * Reason Onset Date Comments MARY Questions 05/31/2025 Encounter Details Date Type Department Care Team (Late st Contact Info) Description 05/31/2025 Telephone [facility] Primary Care at [facility] - [address] [place] [phone] [place] [id number] [address] MARY Questions Social History Tobacco Use Types Packs/Day Years [...] on file Legal Sex Female 11:54 PM COTTAGE PARENT Gender Identity Female 09/19/2020 8:37 AM COTTAGE PARENT Sexual Orientation Straight 09/19/2020 8: 37 AM COTTAGE PARENT documented as of this encounter Functional Status * BP Location Answer Date of Assessment Author Left arm 06/02/2025 9:10 AM CDT Avis Ge MA * BP Location Answer Date of Assessment Author Left arm 06/02/2025 9:10 AM CDT Avis Ge MA documented as of this encounter Miscellaneous Notes * Telephone Encounter - Tammy Schilling - 05/31/2025 9:53 AM CDT MARY Questions (Message from [facility] Access Center-Casting Director): Has patient been discharged at time of call? Yes Date Admitted: 05/24/25 Date Discharged: 05/27/25 Facility Admitted To: [facility] Reason for Stay? Cellulitis and blood clot right leg If prescribed new medications, do you have any questions or concerns? No Do you have enough medication to get you to your follow-up appointment? yes Since being released do you feel better, the same, or worse? better Date of MARY Appointment: 06/02/25 Do you have transportation to the appointment? yes Additional Comments: none Does message need to be routed? No documented in this encounter Plan of Treatment Not on file documented as of this encounter Visit Diagnoses Not on filedocumented in this encounter Care Teams Lone Lead Lineman Relationship Specialty [place] [address] [address] PCP - General Internal Medicine 04/06/24 Ann Serrano MD Referring Physician Endocrinology Diabetes & Metabolism 06/08/20 documented as of this encounter
--- OUTSIDE RECORDS SUMMARY | 2025-06-21 02:55 | XMS_ITS | Encounter Summary ---
Author Organization [facility] Health Address [address] [place] [address] Care Team Providers Care Cutter Out Name Role Phone Tiffany Cox MD Primary Care Provider Unavailable Kishor Saleh MD Primary Care Provider [phone] Encounter Details Date Type Department Care Team (Late st Contact Info) Description 07/03/2023 Lab Requisition [facility] [address] [place] [phone] [place] [address] [facility] [address] S[address] [address] [place] [address] Social History Tobacco Use Types Packs/Day Years Used Date Smoking Tobacco: Never Assessed Comments Unknown Sex and Gender Information Value Date Recorded Sex Assigned at Not on file Legal Sex Female 4:50 AM WINCH DERRICK OPERATOR Gender Identity Not on file Sexual Orientation Not on file documented as of this encounter Plan of Treatment Not on file documented as of this encounter Visit Diagnoses Not on filedocumented in this encounter Additional Health Concerns Infection Onset Date Last Indicated Resolved Time COVID-19 Under Investigation 08/13/2024 08/13/2024 08/13/2024 11:30 PM WINCH DERRICK OPERATOR documented as of this encounter Care Teams Cutter Out Relationship Specialty Start Date End Date Tiffany Cox MD PCP - General Internal Medicine 05/16/13 07/30/23 Kishor Saleh MD [address] [place] [address] DR [place] [place] [address] PCP - General Internal Medicine 07/31/23 documented as of this encounter
--- OUTSIDE RECORDS SUMMARY | 2025-06-21 02:55 | XMS_ITS | Encounter Summary ---
Author Organization [facility] Health Address [address] [facility] [place] [address] Care Team Providers Care It Program Auditor Name Role Phone Tiffany Cox MD Primary Care Provider Unavailable Kishor Saleh MD Primary Care Provider [phone] Encounter Details Date Type Department Care Team (Late st Contact Info) Description 07/03/2023 Lab Requisition [facility] [address] [place] [phone] [place] [address] [facility] [address] S[place] [address] [place] [address] Social History Tobacco Use Types Packs/Day Years Used Date Smoking Tobacco: Never Assessed Comments Unknown Sex and Gender Information Value Date Recorded Sex Assigned at Not on file Legal Sex Female 4:50 AM ENGINEER SYSTEMS Gender Identity Not on file Sexual Orientation Not on file documented as of this encounter Plan of Treatment Not on file documented as of this encounter Visit Diagnoses Not on filedocumented in this encounter Additional Health Concerns Infection Onset Date Last Indicated Resolved Time COVID-19 Under Investigation 08/13/2024 08/13/2024 08/13/2024 11:30 PM ENGINEER SYSTEMS documented as of this encounter Care Teams It Program Auditor Relationship Specialty Start Date End Date Tiffany Cox MD PCP - General Internal Medicine 05/16/13 07/30/23 Kishor Saleh MD [address] [place] [address] DR S[address] [place] [address] PCP - General Internal Medicine 07/31/23 documented as of this encounter
--- OUTSIDE RECORDS SUMMARY | 2025-06-21 02:55 | XMS_ITS | Clinical Summary ---
Author Organization [facility] Address [address] [place] [address] Care Team Providers Care Shirt Hemmer Name Role Phone Kishor Saleh MD Primary Care Provider [phone] Source Comments [facility],non-owned Affiliates and Associated Physician Practices is amultiple site organization consisting of ambulatory clinics and hospital sitesin [place], [place], [place] and [place]. This disclosure is being madepursuant to the Care Everywhere program and may not contain all information available regarding this patient. Last updated 18.[facility] Allergies Active Allergy Reactions Criticality Noted Date [...] fluticasone propionate (Flonase) 50 MCG/ACT nasal spray Troy 2 (two) sprays into each nostril once [...] vitamin D, ergocalciferol , (Drisdol) 1.25 MG (24193 UT) capsule Take 1 (one) capsule by [...] any time in the past 12 m [facility], were you homeless or living in a [facility] (including now)? No 08/15/2024 Comments Unknown Sex and Gender Information Value Date Recorded Sex Assigned at Not on file Legal Sex Female 4:50 AM MECHANICAL OPERATOR Gender Identity Not on file Sexual Orientation Not on file Last Filed Vital Signs Vital Sign Reading Time Taken Comments Blood Pressure 154/92 08/18/2024 12:25 PM MECHANICAL OPERATOR Pulse 102 08/18/2024 12:25 PM MECHANICAL OPERATOR Temperature 36.7 C (98.1 F) 08/18/2024 12:25 PM MECHANICAL OPERATOR Respiratory Rate 23 08/18/2024 12:2 5 PM MECHANICAL OPERATOR Oxygen Saturation 90% 08/18/2024 12: 25 PM MECHANICAL OPERATOR Inhaled Oxygen Concentration 21% 08/18/2024 2 :00 PM MECHANICAL OPERATOR Weight 132.6 kg (292 lb 4.8 oz) 08/18/2024 4:00 AM MECHANICAL OPERATOR Height 167.6 cm (5' 6) 08/13/2024 5:14 PM MECHANICAL OPERATOR Body Mass Index 47.18 08/13/2024 5:14 PM MECHANICAL OPERATOR Plan of Treatment Health Maintenance Due Date Last Done Comments COLOGUARD (AGES 45-75) - COLON CA SCREENING 1976 CT COLONOGRAPHY - COLON CA SCREENING 1976 FIT - COLON CA SCREENING 1976 FLEX SIG - COLON CA SCREENING 1976 HIV SCREENING 1991 HEPATITIS C SCREENING 06/09/1994 DTAP/TDAP/TD VACCINES (1 - Tdap) 1995 HEPATITIS B VACCINE (1 of 3 - 19+ 3-dose series) 1995 Cervical Cancer Screening 1997 PAP SMEAR 1997 PAP with HPV 2006 DEPRESSION SCREENING 08/03/2024 DIABETES - URINE PROTEIN SCREENING 08/03/2024 DIABETES RETINOPATHY SCREENING 08/14/2024 DIABETES-FOOT EXAM WITH MONOFILAMENT 08/14/2024 DIABETES-HGB A1C 02/11/2025 08/14/2024 COVID-19 VACCINE ( season) 2025 05/13/2023, 05/23/2022, 06/20/2021, Additional history exists INFLUENZA VACCINE (#1) 2025 3, 05/23/2022, 05/16/2021, Additional history exists DIABETES-SERUM CREATININE [...] (CALCIUM TOTAL) AM Draw 08/17/2024 4:16 AM MECHANICAL OPERATOR HEMOGLOBIN A1C Routine 08/14/2024 3:27 AM MECHANICAL OPERATOR from Last 3 Months or Most Recently Relevant to Health Maintenance Results * (ABNORMAL) BASIC METABOLIC PANEL (CALCIUM TOTAL) (08/17/2024 4:16 AM MECHANICAL OPERATOR) Glucose 139(H) 70 - 99 mg/dL 08/17/2024 4:53 AM MECHANICAL OPERATOR [facility] Sodium 140 136 - 145 mmol/L 08/17/2024 4:53 AM MECHANICAL OPERATOR [facility] Potassium 3.5 3.5 - 5.1 mmol/L 08/17/2024 4:53 AM MECHANICAL OPERATOR [facility] Chloride 108(H) 98 - 107 mmol/L 08/17/2024 4:53 AM MECHANICAL OPERATOR [facility] CO2 24 22 - 29 mmol/L 08/17/2024 4:53 AM MECHANICAL OPERATOR [facility] Calcium 8.9 8.4 - 10.4 mg/dL 08/17/2024 4:53 AM MECHANICAL OPERATOR [facility] Anion Gap 8 6 - 16 [...] Unknown Venipuncture / Unknown 08/17/2024 4:16 AM MECHANICAL OPERATOR 08/17/2024 4:30 AM [facility] Alexus Ramirez MD LAB - CHEMISTRY ORDERABLES Final Result [facility] [address] [place] [address] * (ABNORMAL) HEMOGLOBIN A1C (08/14/2024 3:27 AM [facility]) Hemoglobin A1c 10.1(H) <5.7 % 08/14/2024 3:48 AM [facility] Estimated Average Glucose 243 mg/dL 08/14/2024 3:48 AM [facility] Blood BLOOD SPECIMEN / Unknown Venipuncture / Unknown 08/14/2024 3:27 AM MECHANICAL OPERATOR 08/14/2024 3:37 AM [facility] Narrative [facility] - 08/14/2024 3:48 AM [facility] [...] ORDERABLES Final Result [facility] [address] [place] [address] from Last 3 Months or Most Recently Relevant to Health Maintenance Insurance [facility] [employer] Advance Directives * Full Code (Latest Code Status on File) Date Activated Date Inactivated Comments 08/13/2024 3:54 PM 08/18/2024 6:24 PM Care Teams Shirt Hemmer Relationship Specialty Start Date End Date Kishor Saleh MD [address] [facility] [address] S[place] [address] [place] [address] PCP - General Internal Medicine 07/31/23
--- OUTSIDE RECORDS SUMMARY | 2025-06-21 02:55 | XMS_ITS | Encounter Summary ---
Author Organization [facility] Address [address] [facility] [place] [address] Care Team Providers Care Lead Shipper Name Role Phone Tiffany Cox MD Primary Care Provider Unavailable Kishor Saleh MD Primary Care Provider [phone] Encounter Details Date Type Department Care Team (Late st Contact Info) Description 07/03/2023 Lab Requisition [facility] [address] [place] [address] [place] [address] [address] Social History Tobacco Use Types Packs/Day Years Used Date Smoking Tobacco: Never Assessed Comments Unknown Sex and Gender Information Value Date Recorded Sex Assigned at Not on file Legal Sex Female 4:50 AM REEFER TRUCK DRIVER Gender Identity Not on file Sexual Orientation Not on file documented as of this encounter Plan of Treatment Not on file documented as of this encounter Procedures Procedure Name Priority Date/Time Associated Diagnosis Comments DERMATOPATHOLOGY Routine 07/01/2023 3:33 AM REEFER TRUCK DRIVER documented in this encounter Results * DERMATOPATHOLOGY (07/01/2023 3:33 AM REEFER TRUCK DRIVER) Case Report Dermatopathology Report Case: [id number] Authorizing Provider: Kendrick Christopher MD Collected: 07/01/2023 03:33 AM Ordering Location: [facility] D[facility] Lab Received: 07/03/2023 12:12 PM Pathologist: Bella Schwab MD Specimen: Skin, right inferior knee 3:45 PM [facility] Final Diagnosis Specimen A. SKIN, right inferior knee: STASIS DERMATITIS (L30.8) DERMAL FIBROSIS (L90.5) (see microscopic description) 3 3:45 PM [facility] DERMATOPATHOLOGY [facility]ORATORY at 1545 REEFER TRUCK DRIVER Clinical History Rash; R/O Leukocytoclastic Vasculitis, Livedo Reticularis 3 3:45 PM [facility]ATH[facility] Gross Description Specimen A: Received is one formalin filled container labeled with the patient's name and designated right inferior knee. The specimen consists of a punch biopsy measuring 6x5x6 mm. Jar 0. 3:45 PM [facility]ERMATOPATH[facility] Microscopic Description Specimen A. SKIN, [...] sections were obtained and reviewed. 3:45 PM [facility]ATH[facility] Disclaimer An external and internal positive and negative controls are appropriate for the histochemical, immunohistochemical and immunofluorescence stain(s) in this case (if any), except where stated explicitly. The performance characteristics of the stain(s) cited in this report were developed and its performance characteristic determined by the Dermatopathology Laboratory at [facility], directed by Dr. Arnol Perea. These tests need not be, and therefore are not, approved by the [place] Food and Drug Administration. The tests are used for clinical purposes. Billing Codes Specimen Charges Stain Charges 48879 1 33387 1 3 3:45 PM [facility]MATOPATH[facility] Embedded Images 3 3:45 PM [facility] Pathology/Cytolo gy TISSUE SPECIMEN FROM SKIN / Unknown 07/01/2023 3:33 AM REEFER TRUCK DRIVER 07/03/2023 12:12 PM REEFER TRUCK DRIVER Kendrick Christopher MD LAB - PATHOLOGY/CYTOLOGY O RDERABLES Final Result DERMATOPATHOLOGY LABORATORY [facility] - Department of Dermatology [facility] Medicine [address] [place] [address], [address] [phone] documented in this encounter Visit Diagnoses Not on filedocumented in this encounter Additional Health Concerns Infection Onset Date Last Indicated Resolved Time COVID-19 Under Investigation 08/13/2024 08/13/2024 08/13/2024 11:30 PM REEFER TRUCK DRIVER documented as of this encounter Care Teams Lead Shipper Relationship Specialty Start Date End Date Tiffany Cox MD PCP - General Internal Medicine 05/16/13 07/30/23 Kishor Saleh MD [address] [place] [address] [address] [place] [address] [place] [address] PCP - General Internal Medicine 07/31/23 documented as of this encounter
--- OUTSIDE RECORDS SUMMARY | 2025-06-21 02:55 | XMS_ITS | Encounter Summary ---
Author Organization [facility] Health Address [address] [place] [address] Care Team Providers Care Behavioral Intervention Specialist Name Role Phone Tiffany Cox MD Primary Care Provider Unavailable Kishor Saleh MD Primary Care Provider Encounter Details Date Type Department Care Team (Late st Contact Info) Description 07/03/2023 Lab Requisition [facility] [address] [place] [phone] [place] [address] [facility] [address] [place] [address] [place] [address] Social History Tobacco Use Types Packs/Day Years Used Date Smoking Tobacco: Never Assessed Comments Unknown Sex and Gender Information Value Date Recorded Sex Assigned at Not on file Legal Sex Female 4:50 AM COMMUNICATION STUDIES PROFESSOR Gender Identity Not on file Sexual Orientation Not on file documented as of this encounter Plan of Treatment Not on file documented as of this encounter Visit Diagnoses Not on filedocumented in this encounter Additional Health Concerns Infection Onset Date Last Indicated Resolved Time COVID-19 Under Investigation 08/13/2024 08/13/2024 08/13/2024 11:30 PM COMMUNICATION STUDIES PROFESSOR documented as of this encounter Care Teams Behavioral Intervention Specialist Relationship Specialty Start Date End Date Tiffany Cox MD PCP - General Internal Medicine 05/16/13 07/30/23 Kishor Saleh MD [address] [place] [address] [address] [address] [place] [address] PCP - General Internal Medicine 07/31/23 documented as of this encounter
--- OUTSIDE RECORDS SUMMARY | 2025-06-21 02:55 | XMS_ITS | Encounter Summary ---
Author Organization [facility] [address] [facility] [place] [address] Care Team Providers Care Professor Of Historical Theology Name Role Phone Tiffany Cox MD Primary Care Provider Unavailable Kishor Saleh MD Primary Care Provider Encounter Details Date Type Department Care Team (Late st Contact Info) Description 07/03/2023 Lab Requisition [facility] Lab [address] [facility] [place] [address] [place] [address] [address] Social History Tobacco Use Types Packs/Day Years Used Date Smoking Tobacco: Never Assessed Comments Unknown Sex and Gender Information Value Date Recorded Sex Assigned at Not on file Legal Sex Female 4:50 AM SCHOOL GUARD Gender Identity Not on file Sexual Orientation Not on file documented as of this encounter Plan of Treatment Not on file documented as of this encounter Procedures Procedure Name Priority Date/Time Associated Diagnosis Comments IMMUNOFLUORESCENT STUDY DERM Routine 07/01/2023 3:33 AM SCHOOL GUARD documented in this encounter Results * IMMUNOFLUORESCENT STUDY DERM (07/01/2023 3:33 AM SCHOOL GUARD) Case Report Dermatopathol ogy Report Case: [id number] Authorizing Provider: Kendrick Christopher MD Collected: 07/01/2023 03:33 AM Ordering Location: [facility] DermPath Lab Received: 07/03/2023 12:13 PM Pathologist: Bella Schwab MD Specimen: Skin, right superior han 3:46 PM [facility] DERMATOPATHOLOGY LABORATORY Final Diagnosis Specimen A. SKIN, right superior han: COLLOID BODIES (L98.9) (see microscopic description) (see fixed tissue results) 3 3:46 PM [facility] DERMATOPATHOLOGY LABORATORY at 1546 SCHOOL GUARD Direct Immunofluorescence Report - Specimen A Specimen A IgA IgM IgG C3 CollV Fibrinogen Epidermis Negative Negative Negative Negative Negative Negative Basement Membrane Negative Negative Negative Negative 2+ Negative Vessels Negative Negative Negative Negative 2+ Negative Interstitium Colloid Colloid Colloid Negative Negative Non specific 3 3:46 PM [facility] DERMATOPATHOLOGY LABORATORY Clinical History Rash; R/O Leukocytoclas tic Vasculitis, Livedo Reticularis 3 3:46 PM [facility] DERMATOPATHOLOGY LABORATORY Gross Description Specimen A: Received is one Jatinder's media filled container labeled with the patient's name and designated right superior han. The specimen consists of a punch biopsy measuring 5x4x4 mm. The specimen is submitted in whole for direct immunofluores cence testing. 3:46 PM [facility] DERMATOPATHOLOGY LABORATORY Microscopic [...] See fixed tissue results. 3 3:46 PM [facility] DERMATOPATHOLOGY LABORATORY Disclaimer An external and internal positive and negative controls are appropriate for the histochemical , immunohistoch emical and immunofluores cence stain(s) in this case (if any), except where stated explicitly. The performance characteristi cs of the stain(s) cited in this report were developed and its performance characteristi c determined by the Dermatopathol ogy Laboratory at [facility], directed by Dr. Arnol Perea. These tests need not be, and therefore are not, approved by the [place] Food and Drug Administratio n. The tests are used for clinical purposes. Billing Codes Specimen Charges Stain Charges 40581 25081 16471 50476 76627 16453 1 1 1 1 1 1 3 3:46 PM SCHOOL GUARD DERMATOPATHOLOGY LABORATORY Embedded Images 3 3:46 PM SCHOOL GUARD DERMATOPATHOLOGY LABORATORY Pathology/Cytolo gy TISSUE SPECIMEN FROM SKIN / Unknown 07/01/2023 3:33 AM SCHOOL GUARD 07/03/2023 12:13 PM SCHOOL GUARD Kendrick Christopher MD LAB - PATHOLOGY/CYTOLOGY O RDERABLES Final Result DERMATOPATHOLOGY LABORATORY [facility] - Department of Dermatology [facility] [address] [place] [address], [address] [phone] documented in this encounter Visit Diagnoses Not on filedocumented in this encounter Additional Health Concerns Infection Onset Date Last Indicated Resolved Time COVID-19 Under Investigation 08/13/2024 08/13/2024 08/13/2024 11:30 PM SCHOOL GUARD documented as of this encounter Care Teams Professor Of Historical Theology Relationship Specialty Start Date End Date Tiffany Cox MD PCP - General Internal Medicine 05/16/13 07/30/23 Kishor Saleh MD [address] [place] [address] DR [place] [address] [place] [address] PCP - General Internal Medicine 07/31/23 documented as of this encounter
--- OUTSIDE RECORDS SUMMARY | 2025-06-21 05:06 | XMS_ITS | Encounter Summary ---
Author Organization [facility] Address [address] [place] [address] Care Team Providers Care Ui Developer Designer Name Role Phone Ann Serrano MD Unavailable [phone] Lynn Rodriguez MD Primary Care Provider Reason for Visit * Reason Onset Date Comments MARY Questions 05/31/2025 Encounter Details Date Type Department Care Team (Late st Contact Info) Description 05/31/2025 Telephone [facility] Primary Care at [facility] - [address] [place] [phone] [place] [address] [address] MARY Questions Social History Tobacco [...] on file Legal Sex Female 11:54 PM FURNACE AND WASH EQUIPMENT OPERATOR Gender Identity Female 09/19/2020 8:37 AM FURNACE AND WASH EQUIPMENT OPERATOR Sexual Orientation Straight 09/19/2020 8: 37 AM FURNACE AND WASH EQUIPMENT OPERATOR documented as of this encounter Functional Status * BP Location Answer Date of Assessment Author Left arm 06/02/2025 9:10 AM CDT Avis Ge MA * BP Location Answer Date of Assessment Author Left arm 06/02/2025 9:10 AM CDT Avis Ge MA documented as of this encounter Miscellaneous Notes * Telephone Encounter - Tammy Schilling - 05/31/2025 9:53 AM CDT MARY Questions (Message from [facility]-Slate Splitting Supervisor): Has patient been discharged at time of call? Yes Date Admitted: 05/24/25 Date Discharged: 05/27/25 Facility Admitted To: [facility] Reason for Stay? Cellulitis and blood clot [...] on filedocumented in this encounter Care Teams Ui Developer Designer Relationship Specialty Start [place] [id number] [address] PCP - General Internal Medicine 04/06/24 Ann Serrano MD Referring Physician Endocrinology Diabetes & Metabolism 06/08/20 documented as of this encounter
--- OUTSIDE RECORDS SUMMARY | 2025-06-21 05:06 | XMS_ITS | Clinical Summary ---
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 Name Role Phone Ann Serrano MD Unavailable [phone] Lynn Rodriguez MD Primary Care Provider Allergies [...] 2 diabetes mellitus with hyperglycemia (HCC),terminal gauger (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) Use for [...] d type 2 diabetes mellitus with hyperglycemia ([facility]) INJECT SUBCUTANEOUSLY 10 UNITS BEFORE MEALS PLUS SLIDING SCALE 1 UNIT FOR EVERY 25 POINTS >150; MAXIMUM DAILY DOSE: 55 UNITS 60 mL 3 Active albuterol 2.5 mg /3 mL (0.083 %) nebulizer solution USE 1 VIAL VIA NEBULIZER EVERY 6 HOURS NEEDED FOR WHEEZING (BOW TACKER RECOMMENDS NOT EXCEEDING 4 VIALS/DAY) 600 mL [...] exertion Follow up pulmonary Impaired mobility 07/29/2024 senior living (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 07/13/2024 terminal gauger 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 user 07/13/2024 Assessment & Plan (07/13/2024 12:22 PM TEMPERING KILN TENDER): - Further complicates diabetes management Has immunity to COVID-19 virus 06/21/2021 Overview (06/30/2022): Pito vaccine 10/05/2020, Moderna booster and Friendsurance bivalent booster Assessment & Plan (06/24/2021 3:28 PM TEMPERING KILN TENDER): Pito vaccine 10/05/2020 and Moderna booster Jun 2021 Major depressive disorder 04/22/2021 Assessment & Plan (01/06/2024 9:09 AM CDT): Stable on current medication regimen. Assessment & Plan (01/17/2022 10:21 AM CDT): Stable on current medication regimen. Assessment & Plan (07/17/2021 2:07 PM TEMPERING KILN TENDER): Better controlled on venlafaxine. Assessment & Plan [...] possible rheumatology 2nd opinion here at [facility] and patient will call back if desired. Assessment & Plan (06/15/2023 10:48 AM TEMPERING KILN TENDER): Certainly making a case for underlying vasculitis [...] condition. Assessment & Plan (06/20/2020 9:35 AM TEMPERING KILN TENDER): Unclear etiology but I am thinking of [...] tolerated Assessment & Plan (08/26/2024 6:10 PM TEMPERING KILN TENDER): Body mass index is 49.1 kg/m . BMI Follow-up includes: nutrition counseling, exercise counseling, and education provided. Assessment & Plan (07/13/2024 12:20 PM TEMPERING KILN TENDER): - Increase Mounjaro to 10 mg weekly [...] tolerated. Assessment & Plan (06/08/2023 5:23 PM TEMPERING KILN TENDER): Patient is encouraged to lose weight with a combination of caloric reduction and increased exercise. Various strategies discussed. The long-term risks associated with continued morbid obesity discussed. Assessment & Plan (09/04/2022 2:34 PM TEMPERING KILN TENDER): Patient is encouraged to lose weight with a combination of caloric reduction and increased exercise. Various strategies discussed. The long-term risks associated with continued morbid obesity discussed. Assessment & Plan (08/02/2022 12:16 PM TEMPERING KILN TENDER): Patient is encouraged to lose weight with [...] discussed. Assessment & Plan (07/13/2020 8:34 AM TEMPERING KILN TENDER): Patient is encouraged to lose weight with a combination of caloric reduction and increased exercise. Various strategies discussed. The long-term risks associated with continued morbid obesity discussed. Assessment & Plan (06/20/2020 9:35 AM TEMPERING KILN TENDER): Patient is encouraged to lose weight with a combination of caloric reduction and increased exercise. Various strategies discussed. The long-term risks associated with continued morbid obesity discussed. Assessment & Plan (07/08/2019 8:44 AM TEMPERING KILN TENDER): Patient is encouraged to lose weight with a combination of caloric reduction and increased exercise. Various strategies discussed. The long-term risks associated with continued morbid obesity discussed. Irregular menses 06/03/2019 Allergic rhinitis 07/05/2018 Assessment & Plan (06/02/2025 10:00 AM CDT): Continue taking Claritin. Use Flonase nasal spray once daily. Assessment & Plan (02/23/2023 1:30 PM CDT): Nasal saline spray (Simply saline, Little Remedies, [place], [place]) 2 second sprays or 2 squeezes into [...] daily Assessment & Plan (07/17/2021 2:07 PM TEMPERING KILN TENDER): Claritin montelukast. Assessment & Plan (04/22/2021 8:25 AM CDT): Currently using Claritin and montelukast. She has not been trying Flonase as her nose is being to congested. Recommended sinus rinses her using a hot warm shower. Could also try Afrin for few days. Assessment & Plan (07/08/2019 8:43 AM TEMPERING KILN TENDER): Add montelukast to her Claritin. She struggles with nasal sprays due to chronic congestion. Assessment & Plan (07/05/2018 9:24 AM TEMPERING KILN TENDER): Try Afrin for 3 days along with [...] mg/dL Assessment & Plan (07/13/2024 12:21 PM TEMPERING KILN TENDER): - Last LDL 103, TG 308, TC [...] triglycerides. Assessment & Plan (09/12/2023 8:12 PM TEMPERING KILN TENDER): Continue statin and optimize glycemic control Assessment & Plan (02/16/2023 8:14 PM CDT): Continue statin and optimize glycemic control Assessment & Plan (01/21/2023 9:50 AM CDT): Continue her atorvastatin and work on diet exercise and check lipids and LFTs before next visit. Assessment & Plan (08/02/2022 12:15 PM TEMPERING KILN TENDER): Well controlled on current therapy and will check a lipid panel and LFTs in 6 months. Assessment & Plan (01/17/2022 10:21 AM CDT): Well controlled on current therapy and will check a lipid panel and LFTs in 6 months. Assessment & Plan (07/17/2021 2:06 PM TEMPERING KILN TENDER): Well controlled on current therapy and will check a lipid panel and LFTs in 6 months. Assessment & Plan (06/24/2021 3:28 PM TEMPERING KILN TENDER): Continue statin and optimize glycemic control Assessment & Plan (12/19/2020 7:53 AM CDT): Continue statin and optimize glycemic control Assessment & Plan (07/13/2020 8:34 AM TEMPERING KILN TENDER): Well controlled on current therapy and will check a lipid panel and LFTs in 6 months. Assessment & Plan (06/08/2020 8:31 AM TEMPERING KILN TENDER): LDL within goal. Continue statin and optimize glycemic control Assessment & Plan (07/08/2019 8:42 AM TEMPERING KILN TENDER): Well controlled on current therapy and will check a lipid panel and LFTs in 12 months. Assessment & Plan (09/01/2018 2:22 PM TEMPERING KILN TENDER): Continue statin, optimize glycemic control Assessment & Plan (07/05/2018 9:23 AM TEMPERING KILN TENDER): Well controlled on current therapy and will check a lipid panel and LFTs in 6 months. Assessment & Plan (08/26/2017 4:27 PM TEMPERING KILN TENDER): Start atorvastatin and check lipids and LFTs in 3-4 months. Call back for results. Vitamin D deficiency 07/02/2017 Assessment & Plan (07/13/2024 12:22 PM TEMPERING KILN TENDER): - Last Vitamin D 42 (12/2023), replete [...] week Assessment & Plan (09/12/2023 8:12 PM TEMPERING KILN TENDER): Continue long-term supplement Assessment & Plan (02/16/2023 8:14 PM CDT): Continue long-term supplement Assessment & Plan (08/02/2022 12:15 PM TEMPERING KILN TENDER): Continue current supplementation and check level in 1 year. Assessment & Plan (07/17/2021 2:06 PM TEMPERING KILN TENDER): Continue current supplementation and check level in 1 year. Assessment & Plan (06/24/2021 3:29 PM TEMPERING KILN TENDER): Continue long-term supplement Assessment & Plan (12/19/2020 7:53 AM CDT): Continue long-term supplement Assessment & Plan (07/13/2020 8:33 AM TEMPERING KILN TENDER): Continue current supplementation and check level in 1 year. Assessment & Plan (06/08/2020 8:31 AM TEMPERING KILN TENDER): Vitamin-D level within goal, continue chronic supplement Assessment & Plan (07/08/2019 8:42 AM TEMPERING KILN TENDER): Continue current supplementation and check level in 1 year. Assessment & Plan (06/03/2019 8:24 AM CDT): Recently ran out of supplement, so we will restart and check her level today. Also check B12 Assessment & Plan (09/01/2018 2:22 PM TEMPERING KILN TENDER): Continue supplement Assessment & Plan (07/05/2018 9:23 AM TEMPERING KILN TENDER): Continue current supplementation and check level in 1 year. Assessment & Plan (08/26/2017 4:26 PM TEMPERING KILN TENDER): Continue current supplementation and check level in [...] that I am available via phone or IMImobilehart if they have any concerns for hypo/hyperglycemia, [...] that I am available via phone or IMImobilehart if they have any concerns for hypo/hyperglycemia, medication refills, etc. Assessment & Plan (08/26/2024 6:10 PM TEMPERING KILN TENDER): Assessment & Plan (07/13/2024 12:20 PM TEMPERING KILN TENDER): - Diabetes is complicated by hyperlipidemia, hypertension, [...] that I am available via phone or IMImobilehart if they have any concerns for hypo/hyperglycemia, [...] Return visit 3 months to see the WAITER/WAITRESS THIRD CLASS/PA, 6 months to see me. Assessment & [...] for her Semglee. She is going to turkey picker today after this visit. - Insurance [...] that I am available via phone or IMImobilehart if they have any concerns for hypo/hyperglycemia, medication refills, etc. Assessment & Plan (09/12/2023 8:13 PM TEMPERING KILN TENDER): Very high glucoses; multifactorial including steroid therapy, [...] daily. Assessment & Plan (06/24/2021 3:29 PM TEMPERING KILN TENDER): Much improved but needs a little more basal insulin. Assessment & Plan (12/19/2020 7:53 AM CDT): Multiple medications, but now requires insulin. We can gradually adjust her Lantus based on her clinical response. Assessment & Plan (06/08/2020 8:32 AM TEMPERING KILN TENDER): Glucoses somewhat better now that she is [...] motivator. Assessment & Plan (07/08/2019 8:43 AM TEMPERING KILN TENDER): Continue increased dose of Ozempic and also continue Invokana. Importance of dietary changes increase exercise weight loss discussed. Follow-up with her dryerman/woman as they direct. Assessment & Plan (06/03/2019 8:25 AM CDT): Somewhat suboptimal, would benefit from increasing Ozempic and continuing efforts with diet and lifestyle. Needs follow-up labs Assessment & Plan (09/01/2018 2:22 PM TEMPERING KILN TENDER): Glucoses a little high, but she has bruising with Victoza so she may benefit by changing to weekly Ozempic, which is a little stronger, as well. Jardiance is been ineffective, so we may need to provide preauthorization for Invokana Assessment & Plan (07/05/2018 9:23 AM TEMPERING KILN TENDER): A1c above goal. We stressed importance of increased exercise, reduce calories, weight loss. Could consider switching Victoza to ozempic. Otherwise does not tolerate metformin or sulfonylureas. May need insulin soon. She is directed to follow up with her dryerman/woman more quickly than her next scheduled appointment in November. Assessment & Plan (08/26/2017 4:26 PM TEMPERING KILN TENDER): Continue current medication regimen and follow up with her dryerman/woman as they direct. Low carb diet weight [...] mmHg Assessment & Plan (07/13/2024 12:21 PM TEMPERING KILN TENDER): - Above goal today - Encouraged her [...] monitor. Assessment & Plan (06/08/2023 5:25 PM TEMPERING KILN TENDER): Stop amlodipine with current issues of swelling. Pressure currently well controlled and should monitor at home Assessment & Plan (01/21/2023 9:49 AM CDT): Blood pressure well controlled on lisinopril Assessment & Plan (09/04/2022 2:34 PM TEMPERING KILN TENDER): Blood pressure well controlled on her lisinopril. Assessment & Plan (08/02/2022 12:15 PM TEMPERING KILN TENDER): Increase lisinopril to 20 mg daily. Monitor blood pressure at home call back if no improvement. Assessment & Plan (01/17/2022 10:21 AM CDT): Well controlled on the current regimen. Avoidance of salt, proper body weight, and routine exercise recommended. Assessment & Plan (07/17/2021 2:06 PM TEMPERING KILN TENDER): Well controlled on the current regimen. Avoidance of salt, proper body weight, and routine exercise recommended. Assessment & Plan (04/22/2021 8:24 AM CDT): Well controlled on the current regimen. Avoidance of salt, proper body weight, and routine exercise recommended. Assessment & Plan (07/13/2020 8:34 AM TEMPERING KILN TENDER): Well controlled on the current regimen. Avoidance of salt, proper body weight, and routine exercise recommended. Assessment & Plan (07/08/2019 8:42 AM TEMPERING KILN TENDER): Well controlled on the current regimen. Avoidance of salt, proper body weight, and routine exercise recommended. Assessment & Plan (09/01/2018 2:21 PM TEMPERING KILN TENDER): Blood pressure close to target, working on diet and lifestyle Assessment & Plan (07/05/2018 9:23 AM TEMPERING KILN TENDER): Well controlled on the current regimen. Avoidance of salt, proper body weight, and routine exercise recommended. Assessment & Plan (08/26/2017 4:25 PM TEMPERING KILN TENDER): Well controlled on the current regimen. Avoidance [...] montelukast Assessment & Plan (08/26/2024 6:08 PM TEMPERING KILN TENDER): Recent exacerbation due to CAP followed by RSV Symptoms improved Continue present plan and medication--albuterol prn, montelukast Assessment & Plan (07/13/2020 8:36 AM TEMPERING KILN TENDER): Doing well on her Symbicort. Okay to discontinue and use albuterol only as needed. Restart Symbicort if uses her albuterol more than 2 times a week. JEREMY (obstructive sleep apnea) 04/01/2012 Overview (11/12/2017): Description: CPAP Assessment & Plan (01/06/2024 9:08 AM CDT): Patient is compliant with the CPAP machine and gets symptomatic relief. Assessment & Plan (08/02/2022 12:15 PM TEMPERING KILN TENDER): Patient is compliant with the CPAP machine and gets symptomatic relief. Assessment & Plan (07/17/2021 2:06 PM TEMPERING KILN TENDER): Repeat sleep study confirmed obstructive sleep apnea [...] syndrome. Assessment & Plan (07/13/2020 8:34 AM TEMPERING KILN TENDER): Patient is compliant with the CPAP machine and gets symptomatic relief. Assessment & Plan (07/08/2019 8:42 AM TEMPERING KILN TENDER): Patient is compliant with the CPAP machine and gets symptomatic relief. Female infertility associated with anovulation 0 09/21/2011 Resolved Problems Problem Noted Date Diagnosed Date Resolved Date Decreased functional mobility and endurance 12/29/2024 02/15/2025 Uncontrolled diabetes mellit us with hyperglycemia 08/14/2024 12/21/2024 Acute hypoxic respiratory failure 08/13/2024 12/21/2024 Assessment & Plan (08/26/2024 6:09 PM TEMPERING KILN TENDER): Recent hospitalization likely for CAP followed by [...] legs Assessment & Plan (06/15/2023 10:47 AM TEMPERING KILN TENDER): Improved after addition of doxycycline to her Bactrim. Call back if symptoms worsen after doxycycline runs out Assessment & Plan (06/08/2023 5:25 PM TEMPERING KILN TENDER): Seems like cellulitis slow to improve either [...] 12/21/2024 Assessment & Plan (09/04/2022 2:35 PM TEMPERING KILN TENDER): No signs of neurological abnormality on examination [...] Continue other medications as directed by her dryerman/woman. Diet exercise discussed. Hopefully may be able to wean prednisone in the near future as well. Assessment & Plan (06/15/2023 10:48 AM TEMPERING KILN TENDER): She knows that the steroids will exacerbate her hyperglycemia and should be in contact with her dryerman/woman for management. Assessment & Plan (06/08/2023 5:26 PM TEMPERING KILN TENDER): Poor control of her diabetes prior to this hospitalization and even worse now on prednisone. Follow-up with her dryerman/woman for management. Diet exercise weight loss recommended. Assessment & Plan (01/21/2023 9:50 AM CDT): Blood sugars remain above goal. Hopefully the recent addition of mounjaro will help significantly. Discuss up titration of this and her mealtime insulin with her dryerman/woman. Diet exercise discussed. Check A1c and fasting blood sugar before next visit. Assessment & Plan (08/02/2022 12:16 PM TEMPERING KILN TENDER): A1c poorly controlled. Importance of diet exercise weight loss discussed at length. Continue her Ozempic and insulin and needs to contact her dryerman/woman soon as possible for guidance on further therapy. Assessment & Plan (01/17/2022 10:22 AM CDT): Patient aware A1c grossly uncontrolled. Must work on diet exercise and weight loss. She has to get back on her insulin and should discuss this today with her dryerman/woman. Risks posed her health with poor glycemic control discussed. Assessment & Plan (07/13/2020 8:34 AM TEMPERING KILN TENDER): A1c above goal. Importance of diet exercise weight loss discussed. Continue current medication regimen and follow-up with her dryerman/woman as they direct. Dyslipidemia 06/03/2019 07/13/2020 Healthcare [...] yearly. Colonoscopy due March 2027. Follow-up the manufacturing quality engineer for breast exam pelvic exam as they direct. Will see her back in about 6 months sooner if needed. Assessment & Plan (08/02/2022 12:17 PM TEMPERING KILN TENDER): Flu shot each May. Tetanus booster every 10 years. Pneumovax completed. COVID booster recommended. Mammogram yearly. Colonoscopy due March 2027. Follow-up the manufacturing quality engineer for breast exam pelvic exam as they direct. Will see her back in 6 months with lab sooner if needed. Assessment & Plan (07/17/2021 2:08 PM TEMPERING KILN TENDER): Flu shot each May. Tetanus booster every 10 years. Pneumovax completed. COVID vaccine completed. Mammogram yearly. Colonoscopy ordered and she should verify coverage before proceeding. Follow-up the manufacturing quality engineer for breast exam and pelvic exam as they direct. We will see her back in 1 year for physical and fasting lab sooner if needed. Assessment & Plan (07/13/2020 8:35 AM TEMPERING KILN TENDER): Flu shot each May. Tetanus booster every 10 years. She has had a Pneumovax. Mammogram was abnormal back in August and she has delayed follow-up studies until now and she is urged to get her diagnostic and ultrasound studies done at her earliest convenience and she is aware of the risks posed her health with delay in proceeding. Follow-up the manufacturing quality engineer for breast exam and pelvic exam as they direct. We will see her back in 1 year for wellness visit fasting lab sooner if needed. Assessment & Plan (07/08/2019 8:43 AM TEMPERING KILN TENDER): Flu shot each May. Tetanus booster every 10 years. Mammogram ordered. Will see her back in 1 year for physical and fasting lab sooner if needed. Assessment & Plan (07/05/2018 9:24 AM TEMPERING KILN TENDER): Tetanus booster today. Flu shot each May. Mammogram ordered. Patient should follow-up the manufacturing quality engineer breast exam and pelvic exam. We will see her back in 1 year for wellness visit fasting lab sooner if needed. Assessment & Plan (08/26/2017 4:27 PM TEMPERING KILN TENDER): Flu shot each May. Tetanus booster every 10 years. See her manufacturing quality engineer for breast exam mammogram and Pap smear [...] aerobics Assessment & Plan (08/26/2017 4:28 PM TEMPERING KILN TENDER): Patient is encouraged to lose weight with [...] Type Department Care Team Description 06/20/2025 Telephone [facility] Primary Care at [facility] - [address] [place] [phone] Lynn Rodriguez MD Medical Question/Miscellan eous 06/09/2025 Telephone [facility] Primary Care at [facility] - [address] [place] [phone] Lynn Rodriguez MD 06/06/2025 9:23 AM TEMPERING KILN TENDER - 06/06/2025 11:59 PM TEMPERING KILN TENDER Hospital Encounter [facility] [address] [place] [phone] Darshan Frank NP Chronic right-sided low back pain with right-sided sciatica (Primary Dx); Spinal stenosis of lumbar region with neurogenic claudication Discharge Disposition: Discharge to home or self care 06/06/2025 Documentation [facility] [address] [place] [phone] Clayton Basurto RN Prior Auth (Belbuca 150mcg films) 06/02/2025 9:00 AM CDT Office Visit [facility] Primary Care at [facility] - [address] [place] [address] [place] [phone] Jesica Mina NP Acute deep vein thrombosis (DVT) of right lower extremity, unspecified vein (HCC) (Primary Dx); Allergic rhinitis, unspecified seasonality, unspecified trigger; Vertigo 05/31/2025 Telephone [facility] Primary Care at [facility] - [address] [place] [address] [place] [phone] Lynn Rodriguez MD MARY Questions 05/23/2025 Telephone [facility] Care at [address] [place] [address] Jory Sage NP 05/22/2025 11:39 AM CDT - 05/22/2025 11:59 PM CDT Hospital Encounter [facility] [address] [place] [address] Adam Corrales MD Radiculopathy, lumbosacral region [M54.17] (Primary Dx); Spinal stenosis of lumbar region with neurogenic claudication Discharge Disposition: Discharge to home or self care 05/15/2025 Telephone [facility] [place] [address] Tigist Shultz 04/18/2025 Telephone [facility] [address] [place] [address] Tigist Shultz 04/07/2025 9:30 AM CDT Office Visit [facility] at [address] [place] [address] Iqra Jensen MD JEREMY (obstructive sleep apnea) (Primary Dx); Hypersomnia; Obesity, unspecified class, unspecified obesity type, unspecified whether serious comorbidity present; Restless leg syndrome 04/06/2025 Telephone [facility] [address] [facility] [address] [place] [phone] Iqra Jensen MD 04/04/2025 11:30 AM CDT Lab [facility] Medicine Endocrinology Metabolism and Lipid [address] [facility] 5th [place] [address] [place] [address] Elevated liver function tests 04/04/2025 11:00 AM CDT Office Visit [facility] Medicine Rheumatology [address] [facility] 5th [place] [address] [place] [phone] Lucian Trinidad MD PhD terminal gauger 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 user (Primary Dx); Dermatitis 04/04/2025 Results Follow-Up [facility] Medicine Endocrinology Metabolism and Lipid [address] [facility] 13th [place] [address] [place] [phone] Shirley Hicks PA Hepatic function panel 04/04/2025 Telephone [facility] at [address] [address] Ele Vazquez, PT 03/30/2025 Telephone [facility] Sleep Medicine at [address] [address] Iqra Jensen MD 03/29/2025 Results Follow-Up [facility] Gastroenterology at [address] [place] [address] Ad Camacho MD Surgical pathology 03/28/2025 7:00 PM CDT - 03/28/2025 11:59 PM CDT Hospital Encounter [facility] [address] [place] [address] JEREMY (obstructive sleep apnea) Discharge Disposition: Discharge to home or self care 03/27/2025 Telephone [facility] at [address] [address] Adelina Little, PT Appointment 03/23/2025 1:00 PM CDT - 03/23/2025 11:59 PM CDT Hospital Encounter [facility] [address] [place] [address] Amada Baldwin NP Spinal stenosis of lumbar region with neurogenic claudication (Primary Dx); Radiculopathy, lumbosacral region; Uncontrolled type 2 diabetes mellitus with hyperglycemia (HCC); Benign hypertension Discharge Disposition: Discharge to home or self care 03/23/2025 Telephone [facility] at [address] [place] [address] Adelina Little, PT Cancel (08/05 NS/Cx - Date PT Treatment Started: 12/29/2024/) 03/21/2025 2:30 PM CDT Office Visit [facility] Pulmonary at [address] [address] [place] [address] Josiah Doan DO Chronic hypoxic respiratory failure (HCC) (Primary Dx) from Last 3 Months Immunizations Immunization Administration Dates Next Due Influenza, Quadrivalent, Rosita l Culture-based MDCK, Preservative Free, Antibiotic Free, Intramuscular 05/13/2023,05/23/2022 Influenza, Quadrivalent, Spl it, Intramuscular 05/03/2015 Influenza, Quadrivalent, Spl it, Preservative Free, Intramuscular 05/16/2020,05/07/2018 Influenza, Trivalent, Preser vative Free, Intramuscular 09/24/2024 Influenza, Unspecified 05/16/2021,2020,04/22/2021(Defer red: Patient Refused),03/19/2021(Deferred: Patient Refused),05/12/2019,05/07/2017 [employer] ([employer]) SARS-CoV-2 Vaccination 10/05/2020 Pneumococcal Conjugate Pcv20 [...] Hx Other Medical Sleep apnea; Co mments: [facility] 04/11/2014 - Hx Other Medical 2013 Internal derang ement of the knee; Comments: [facility] 04/11/2014 - Hx Other Medical Depression; Com ments: [facility] 04/11/2014 - Hx Other Medical D and C Hx Other Medical D/C 02/2016 Hx Other Medical R knee meniscal repair 05/2014 Hx Other Medical Large uterine f ibroid resected 04/2015, uterine darby Hx Other Medical IVF transfer 2015 Hx Other Medical 01: [employer] Program Director -- Dr Estefani Sheikh Morbid obesity (HCC) [...] on file Legal Sex Female 11:54 PM TEMPERING KILN TENDER Gender Identity Female 09/19/2020 8:37 AM TEMPERING KILN TENDER Sexual Orientation Straight 09/19/2020 8: 37 AM TEMPERING KILN TENDER Obstetrics History Para Term AB IAB SAB Ectopic Multiple Livin g Live Births 0 0 0 Last Filed Vital Signs Vital Sign Reading Time Taken Comments Blood Pressure 147/94 06/06/2025 9:34 AM TEMPERING KILN TENDER Pulse 123 06/06/2025 9:34 AM TEMPERING KILN TENDER Temperature 36.5 C (97.7 F) 06/02/2025 9:10 AM CDT Respiratory Rate 18 06/06/2025 9:34 AM TEMPERING KILN TENDER Oxygen Saturation 99% 06/06/2025 9:34 AM TEMPERING KILN TENDER Inhaled Oxygen Concentration - - Weight 145.4 [...] Lumbar/Sacral Selective Nerve Root INJ (TFE) Right (36730) (05/22/2025 12:41 PM CDT) Narrative RAD_PACS_CH - 05/22/2025 12:46 PM CDT The images from this study are not interpreted by Radiology. Please refer to the physician's procedure / OR operative note. us Amada Baldwin WAITER/WAITRESS THIRD CLASS IMG PAIN MGMT PROCEDURE S Final Result [...] CDT 04/04/2025 12:43 PM CDT [facility] LAB BLOOD ORDERABLE S Final Result [facility] * PSG (03/30/2025) Impressions Iqra Jensen MD - 03/30/2025 Baseline Polysomnogram History: Camila Huitron is a 49 y.o. female who presents for baseline polysomnogram. Reason for sleep study: Obstructive sleep apnea [place] sleepiness score: 6 Weight: 311 lbs BMI: 50.23 Procedure: This overnight diagnostic baseline polysomnogram was performed with the production control technologist in attendance. Patient is studied with [...] scored according to the criteria from The [place] [employer] (AASM) Manual for [...] Clinical correlation is recommended. Iqra Jensen MD [facility] Sleep Medicine Narrative Iqra Jensen [...] BLOOD ORDERABLE S Final Result [facility] [address] [id number] * Albumin Creatinine Ratio, Urine (01/09/2025 12:30 PM CDT) Albumin Ur 37.8 mg/L Comment: Interpretive Data No reference range established. Current interpretive data was last revised 2018. Creatinine Ur 353.8 mg/dL [facility] Comment: Interpretive Data No reference range established. Current interpretive data was last revised 2018. Albumin Creatinine Ratio, Ur 11 1 - 29 mg/g [facility] Urine 01/09/2025 12:3 0 PM CDT 01/09/2025 1:18 PM CDT [facility] LAB URINE ORDERABLE S Final Result [facility] Department [place] [address] * (ABNORMAL) Lipid panel (01/09/2025 12:30 PM [...] 2018. Triglycerides 334(H) <=149 mg/dL [facility] Comment: Interpretive Data Ages < or = [...] 2018. HDL 75 >=40 mg/dL [facility] Comment: Interpretive Data Ages < or = [...] LDL, calculated 127 <=129 mg/dL [facility] Comment: Interpretive Data Ages < or = [...] 2024. Non-HDL Cholesterol 185 mg/dL [facility] Comment: Interpretive Data Ages < or = [...] on 2018. Chol/HDL ratio 3 [facility] Blood 01/09/2025 12:3 0 PM CDT 01/09/2025 1:18 PM CDT [facility] LAB BLOOD ORDERABLE S Final Result [facility] Department [place] [address] * Screening Mammogram Bilateral W Vincenzo (01/09/2025 [...] 01/09/2025 10:4 4 AM CDT [facility] LAY POINT OF CARE TEST ORDERABLES Final Result * Diabetic Eye Exam (11/10/2022) Generic External Data Provider HEALTH MAINTENANC E Final Result * COLONOSCOPY (04/02/2022 9:28 AM CDT) Anatomical Region Laterality Modality Other Narrative Procedure Note Ad Camacho MD - 04/02/2022 9:[address] [facility] Patient Name: Camila Huitron Procedure Date: 04/02/2022 9:28 AM Date of : 1975 Admit Type: Outpatient Age: 46 Gender: Female Attending MD: Ad Camacho M.D. Room: [facility] ENDOSCOPY ROOM 2 Note Status: Finalized Patient [...] scope was passed under direct vision. TheColonoscope [id number] was introduced through the anus and advanced [...] 9:28 AM Procedure Code(s): --- Professional --- 36048, Colonoscopy, flexible; with biopsy, single or multiple Diagnosis Code(s): --- Professional --- Z12.11, Encounter for screening for malignant neoplasm of colon D12.3, Benign neoplasm of transverse colon (hepatic flexure orsplenic flexure) D12.4, Benign neoplasm of descending colon D12.8, Benign neoplasm of rectum CPT copyright 2020 [employer]. All rights reserved. The codes documented in this report are preliminary and upon trading specialist reviewmay be revised to meet current compliance requirements. Recognized by the [place] [employer] for promoting quality in endoscopy Ad Camacho MD ENDOSCOPY PROCEDURES Final Resul t * Diabetic Foot Exam (03/26/2021) Impressions Art Staley MA - 03/26/2021 In care everywhere Historical Provider HEALTH MAINTENANCE Final Result from Last 3 Months or Most Recently Relevant to Health Maintenance Insurance [facility] [id number] [place] [id number] Advance Directives For more information, please contact: [phone] * Full Code (Latest Code Status on File) Date Activated Date Inactivated Comments 03/20/2025 7:48 AM 03/20/2025 1:42 PM * Full Code Date Activated Date Inactivated Comments 03/20/2025 7:48 AM 03/20/2025 7:48 AM * Full Code Date Activated Date Inactivated Comments 04/02/2022 9:27 AM 04/02/2022 4:47 PM * Full Code Date Activated Date Inactivated Comments 04/02/2022 9:27 AM 04/02/2022 9:27 AM Care Teams Streetcar Repairer Helper Relationship Specialty [place] [id number] [address] PCP - General Internal Medicine 04/06/24 Ann Serrano MD Referring Physician Endocrinology Diabetes & Metabolism 06/08/20
--- OUTSIDE RECORDS SUMMARY | 2025-06-21 05:06 | XMS_ITS | Encounter Summary ---
Author Organization [facility] Address [address] [place] [address] Phone Care Team Providers Care Nursing Techn Name Role Phone Kishor Saleh MD Primary Care Provider [phone] Ann Serrano MD Unavailable [phone] No, Physician Primary Care Provider [phone] Kishor Saleh MD Primary Care Provider [phone] Lynn Rodriguez MD Primary Care Provider Encounter Details Date Type Department Care Team (Late st Contact Info) Description 09/30/2017 Orders Only [facility] ProviderStephenie MD [address] [place] [address] Social History Tobacco Use Types Packs/Day Years Used Date Smoking Tobacco: Never Smokeless Tobacco: Never Alcohol Use Standard Drinks/Week Comments No 0 (1 standard drink = 0.6 oz pur e alcohol) Comments Unknown Sex and Gender Information Value Date Recorded Sex Assigned at Not on file Legal Sex Female 11:54 PM SAP SOLUTIONS ARCHITECT Gender Identity Female 09/19/2020 8:37 AM SAP SOLUTIONS ARCHITECT Sexual Orientation Straight 09/19/2020 8: 37 AM SAP SOLUTIONS ARCHITECT documented as of this encounter Plan of Treatment Not on file documented as of this encounter Procedures Procedure Name Priority Date/Time Associated Diagnosis Comments DISCHARGE LABORATORY CUMULATIVE REPORT 09/30/2017 12:00 AM SAP SOLUTIONS ARCHITECT documented in this encounter Results * DISCHARGE LABORATORY CUMULATIVE REPORT (09/30/2017 12:00 AM SAP SOLUTIONS ARCHITECT) Narrative 09/30/2017 12:00 AM SAP SOLUTIONS ARCHITECT Ordered by an unspecified provider. us Historical Provider LAB BLOOD ORDERABLES Flora l Result documented in this encounter Visit Diagnoses Not on filedocumented in this encounter Additional Health Concerns Infection Onset Date Last Indicated Resolved Time COVID: Suspected 08/13/2022 08/13/2022 08/13/2022 1:16 PM SAP SOLUTIONS ARCHITECT COVID: Suspected 11/07/2024 11/07/2024 11/07/2024 2:20 PM CDT COVID: Suspected 03/13/2025 03/13/2025 03/13/2025 3:44 PM CDT documented as of this encounter Care Teams Nursing Techn Relationship Specialty Start Date End Date Kishor Saleh MD PCP - General 09/28/08 11/16/23 No, Physician PCP - General 11/17/23 12/28/23 Kishor Saleh MD [address] [facility] [address] [place] [address] PCP - General Internal Medicine 12/29/23 04/05/24 [place] [address] [facility] [address] [place] [address] PCP - General Internal Medicine 04/06/24 Ann Serrano MD Referring Physician Endocrinology Diabetes & Metabolism 06/08/20 documented as of this encounter
--- OUTSIDE RECORDS SUMMARY | 2025-06-21 05:06 | XMS_ITS | Encounter Summary ---
Author Organization [facility] Healthcare Address [address] [place] [address] Care Team Providers Care Career Information Specialist Name Role Phone Ann Serrano MD Unavailable [phone] Lynn Rodriguez MD Primary Care Provider Reason for Visit * Reason Onset Date Comments Medical Question/Miscellaneous 06/20/2025 Encounter Details Date Type Department Care Team (Late st Contact Info) Description 06/20/[address] [facility] Medical Group Primary Care at [facility] - [address] [place] [phone] [place] [id number] [address] Medical Question/Miscellaneous Social History Tobacco [...] on file Legal Sex Female 11:54 PM QUALITY ASSURANCE QA LAB TECHNICIAN Gender Identity Female 09/19/2020 8:37 AM QUALITY ASSURANCE QA LAB TECHNICIAN Sexual Orientation Straight 09/19/2020 8: 37 AM QUALITY ASSURANCE QA LAB TECHNICIAN documented as of this encounter Miscellaneous [...] message need to be routed? Yes-FYI Only ITY ASSURANCE QA LAB TECHNICIAN documented in this encounter Plan of Treatment Not on file documented as of this encounter Visit Diagnoses Not on filedocumented in this encounter Care Teams Career Information Specialist Relationship Specialty [place] [id number] [address] PCP - General Internal Medicine 04/06/24 Ann Serrano MD Referring Physician Endocrinology Diabetes & Metabolism 06/08/20 documented as of this encounter
== END 2025-06-20 20:56 | disposition home or self-care (01) ==
PROVIDERS: Emergency Provider Student in an Organized Health Care Education/Training Program
DX: S00.35XA Superficial foreign body of nose, initial encounter (principal); F32.A Depression, unspecified; G47.30 Sleep apnea, unspecified; I10 Essential (primary) hypertension; E78.5 Hyperlipidemia, unspecified; E11.9 Type 2 diabetes mellitus without complications; Z79.4 Long term (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; W44.8XXA Other foreign body entering into or through a natural orifice, initial encounter
CPT/HCPCS: 30300; 99282; A9270; J2003

== ENCOUNTER 2025-06-25 19:36 | Inpatient (IN) | payer OTHER, SELFPAY ==
[2025-06-25] VITALS (16 sets, daily range): BP systolic 109–135; BP diastolic 60–99; PULSE 120–129; RESP 14–23; TEMP 36.6; O2SAT 90–100
--- NOTE | ~2025-06-25 | US_ITS ---
EXAMINATION: US venous doppler [facility], 06/30/2025 16:35 ENGAGEMENT DIRECTOR HISTORY: Swelling COMPARISON: None Technique: Pittman-scale and color Doppler images were attempted of the lower saphenofemoral junction, common femoral vein,superficial femoral vein, proximal deep femoral vein, proximal deep femoral vein, popliteal vein and posterior tibial veins. Findings: Deep Venous System:Normal flow, augmentation and compressibility. No echogenic thrombus identified. Superficial Venous SystemNo superficial thrombophlebitis. Soft tissues: Soft tissues are unremarkable. Impression: Negative for DVT. Reviewed, dictated and finalized at location P. GEMENT DIRECTOR Impression: Negative for DVT.
--- NOTE | ~2025-06-25 | CT_ITS ---
CTA CHEST CLINICAL HISTORY: hypoxia, recent PE . COMPARISON: X-ray earlier same day TECHNIQUE: Helical CTA performed from thoracic inlet to upper abdomen 100 mL Omnipaque 350 Coronal, sagittal reformats. Multiplanar MIPS CT images acquired with automatic exposure control for dose reduction DLP: 989 mGy-cm FINDINGS: Pulmonary arteries: No PE. Thoracic Aorta: No dissection or aneurysm. Heart/pericardium: Unremarkable. RV/LV ratio: Normal. Lungs/Pleura: Elevated right hemidiaphragm, associated basilar atelectasis. Tracheobronchial tree: Patent. Nodes: No enlarged nodes. Bones: No acute bony abnormality. Soft tissues: Unremarkable. Visualized upper abdomen: Hepatomegaly, with steatosis. Probable cirrhosis. IMPRESSION: 1. No PE or other acute cardiopulmonary findings. Reviewed, dictated and finalized at location R. INES SOLUTIONS SPECIALIST
--- NOTE | ~2025-06-25 | XR_ITS ---
Examination: XR chest 1V portable Clinical History: hypoxia Comparison: 02/27/2025 Technique: Portable AP Findings: Heart size upper limit of normal. Chronic elevation right hemidiaphragm, associated basilar atelectasis. No acute bony abnormality. IMPRESSION: 1. No acute cardiopulmonary findings given portable technique. Reviewed, dictated and finalized at location R. CAST ANALYST
--- NOTE | ~2025-06-25 | US_ITS ---
US right upper quadrant Indication: Edema Comparison: None Technique: Pittman-scale and color Doppler images were obtained. Findings: LIVER: Liver measures 21 cm. Mild increased echogenicity in the liver. . GALLBLADDER/BILIARY: Unremarkable.No cholelithiais, wall thickening or pericholecystic fluid. No biliary dilatation. CBD 5 mm. [place]omb sign negative. PANCREAS: Pancreas limited by bowel gas. Right Kidney: Right kidney 11.5 x 5.2 x 5 cm, normal. Impression: Mild hepatic steatosis Reviewed, dictated and finalized at location P. ETING COMMUNICATIONS MANAGER Impression: Mild hepatic steatosis
--- OUTSIDE RECORDS SUMMARY | 2025-06-25 19:38 | XMS_ITS | Encounter Summary ---
Author Organization [facility] Health Address [address] [facility] [place] [address] Care Team Providers Care Accounting Officer Name Role Phone Tiffany Cox MD Primary Care Provider Unavailable Kishor Saleh MD Primary Care Provider [phone] Encounter Details Date Type Department Care Team (Late st Contact Info) Description 07/03/2023 Lab Requisition [facility] [address] [place] [id number] [place] [address] [facility] [address] [place] [address] Social History Tobacco Use Types Packs/Day Years Used Date Smoking Tobacco: Never Assessed Comments Unknown Sex and Gender Information Value Date Recorded Sex Assigned at Not on file Legal Sex Female 4:50 AM MARKET RISK ANALYST Gender Identity Not on file Sexual Orientation Not on file documented as of this encounter Plan of Treatment Not on file documented as of this encounter Visit Diagnoses Not on filedocumented in this encounter Additional Health Concerns Infection Onset Date Last Indicated Resolved Time COVID-19 Under Investigation 08/13/2024 08/13/2024 08/13/2024 11:30 PM MARKET RISK ANALYST documented as of this encounter Care Teams Accounting Officer Relationship Specialty Start Date End Date Tiffany Cox MD PCP - General Internal Medicine 05/16/13 07/30/23 Kishor Saleh MD [address] [place] [address] [address] [address] [place] [address] PCP - General Internal Medicine 07/31/23 documented as of this encounter
--- OUTSIDE RECORDS SUMMARY | 2025-06-25 19:38 | XMS_ITS | Clinical Summary ---
Author Organization 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 1 each 025 2024 Discontinued(R eorder) furosemide (LASIX) 40 mg tabletIndication s:Lymphedema Take 1 tablet (40 mg total) by mouth daily 90 tablet 1 025 2024 Discontinued(R eorder) potassium chloride ER (KLOR-CON) 20 mEq CR tabletIndication s:Lymphedema Take 1 tablet (20 mEq total) by mouth daily 90 tablet 1 2024 Discontinued(R eorder) benzonatate (TESSALON) 200 mg capsuleIndicatio ns:Acute cough Take 1 capsule (200 mg total) by mouth every 8 (eight) hours as needed for cough 20 capsule 2024 Discontinued(P atient Reported) sulfamethoxazole -trimethoprim (BACTRIM DS) 800-160 mg per tablet TAKE 1 TABLET BY MOUTH 3 TIMES WEEKLY 24 tablet 1 2024 Discontinued(R eorder) diclofenac DR (VOLTAREN) 75 mg EC tablet TAKE 1 TABLET BY MOUTH TWICE DAILY 180 tablet 3 2024 Discontinued buprenorphine (Belbuca) 150 mcg film buccal filmIndications: Chronic right-sided low back pain with right-sided sciatica,Sacroil iitis,Radiculopa thy, lumbosacral region Apply 1 each (150 mcg total) to cheek 2 (two) times a day 60 each 2024 Discontinued(R eorder) meclizine (ANTIVERT) 12.5 mg tabletIndication s:Vertigo Take 1 tablet (12.5 mg total) by mouth 3 (three) times a day as needed for dizziness 90 tablet 4 2024 Discontinued(P atient Reported) budesonide-formo teroL (SYMBICORT) 160-4.5 mcg/actuation inhalerIndicatio ns:Moderate persistent asthma without complication Inhale 2 puffs 2 (two) times a day Rinse mouth with water after use. Do not swallow. 1 each 2024 Discontinued(R eorder) sulfamethoxazole -trimethoprim (BACTRIM) 800-160 mg per tablet Take 1 tablet (160 mg of trimethoprim total) by mouth 3 (three) times a week 24 tablet 1 025 2024 Discontinued sulfamethoxazole -trimethoprim (BACTRIM) 800-160 mg per tablet Take 1 tablet (160 mg of trimethoprim total) by mouth 3 (three) times a week 24 tablet 1 2 025 2024 Discontinued(P atient Reported) Active Problems Problem Noted Date Diagnosed Date Hepatic steatosis 06/23/2025 Acute deep vein thrombosis (DVT) of right [...] exertion Follow up pulmonary Impaired mobility 07/29/2024 nursing home (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 07/13/2024 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 Assessment & Plan (01/17/2022 10:21 AM CDT): Stable on current medication regimen. Assessment & Plan (07/17/2021 2:07 PM FRESH FOODS CLERK): Better controlled on venlafaxine. Assessment & Plan (04/22/2021 8:25 AM CDT): Restart venlafaxine and warned of side effects and call back if any develop or if no improvement. Stasis dermatitis 06/20/2020 Assessment & Plan (01/06/2024 9:10 AM CDT): Working diagnosis is vasculitis and on multiple medications as directed by Rheumatology. Unfortunately lab work and skin biopsy inconclusive. Discussed possible rheumatology 2nd opinion here at [facility] and patient will call back if desired. Assessment & Plan (06/15/2023 10:48 AM FRESH FOODS CLERK): Certainly making a case for underlying [...] condition. Assessment & Plan (06/20/2020 9:35 AM FRESH FOODS CLERK): Unclear etiology but I am thinking [...] 59.9 in adult 07/08/2019 Assessment & Plan (06/23/2025 11:25 AM FRESH FOODS CLERK): Body mass index is 51.94 kg/m . BMI Follow-up includes: nutrition counseling, exercise counseling, and education provided. Assessment & Plan (02/15/2025 10:35 AM CDT): [...] tolerated Assessment & Plan (08/26/2024 6:10 PM FRESH FOODS CLERK): Body mass index is 49.1 kg/m . BMI Follow-up includes: nutrition counseling, exercise counseling, and education provided. Assessment & Plan (07/13/2024 12:20 PM FRESH FOODS CLERK): - Increase Mounjaro to 10 mg [...] tolerated. Assessment & Plan (06/08/2023 5:23 PM FRESH FOODS CLERK): Patient is encouraged to lose weight with a combination of caloric reduction and increased exercise. Various strategies discussed. The long-term risks associated with continued morbid obesity discussed. Assessment & Plan (09/04/2022 2:34 PM FRESH FOODS CLERK): Patient is encouraged to lose weight with a combination of caloric reduction and increased exercise. Various strategies discussed. The long-term risks associated with continued morbid obesity discussed. Assessment & Plan (08/02/2022 12:16 PM FRESH FOODS CLERK): Patient is encouraged to lose weight [...] discussed. Assessment & Plan (07/13/2020 8:34 AM FRESH FOODS CLERK): Patient is encouraged to lose weight with a combination of caloric reduction and increased exercise. Various strategies discussed. The long-term risks associated with continued morbid obesity discussed. Assessment & Plan (06/20/2020 9:35 AM FRESH FOODS CLERK): Patient is encouraged to lose weight with a combination of caloric reduction and increased exercise. Various strategies discussed. The long-term risks associated with continued morbid obesity discussed. Assessment & Plan (07/08/2019 8:44 AM FRESH FOODS CLERK): Patient is encouraged to lose weight [...] Nasal saline spray (Simply saline, [employer] Remedies, [place], [place]) 2 second sprays or 2 squeezes into [...] daily Assessment & Plan (07/17/2021 2:07 PM FRESH FOODS CLERK): Claritin montelukast. Assessment & Plan (04/22/2021 8:25 AM CDT): Currently using Claritin and montelukast. She has not been trying Flonase as her nose is being to congested. Recommended sinus rinses her using a hot warm shower. Could also try Afrin for few days. Assessment & Plan (07/08/2019 8:43 AM FRESH FOODS CLERK): Add montelukast to her Claritin. She struggles with nasal sprays due to chronic congestion. Assessment & Plan (07/05/2018 9:24 AM FRESH FOODS CLERK): Try Afrin for 3 days along with initiating fluticasone. Stop Afrin in3 days and continue fluticasone indefinitely. continue Zyrtec. Mixed hyperlipidemia 07/02/2017 Assessment & Plan (06/23/2025 11:25 AM FRESH FOODS CLERK): Lab Results Component Value Date LDLCALC 127 01/09/2025 LDL goal <70 No side effects of prescribed medication Continue statin Assessment & Plan (02/15/2025 10:35 AM CDT): [...] mg/dL Assessment & Plan (07/13/2024 12:21 PM FRESH FOODS CLERK): - Last LDL 103, TG 308, [...] triglycerides. Assessment & Plan (09/12/2023 8:12 PM FRESH FOODS CLERK): Continue statin and optimize glycemic control Assessment & Plan (02/16/2023 8:14 PM CDT): Continue statin and optimize glycemic control Assessment & Plan (01/21/2023 9:50 AM CDT): Continue her atorvastatin and work on diet exercise and check lipids and LFTs before next visit. Assessment & Plan (08/02/2022 12:15 PM FRESH FOODS CLERK): Well controlled on current therapy and will check a lipid panel and LFTs in 6 months. Assessment & Plan (01/17/2022 10:21 AM CDT): Well controlled on current therapy and will check a lipid panel and LFTs in 6 months. Assessment & Plan (07/17/2021 2:06 PM FRESH FOODS CLERK): Well controlled on current therapy and will check a lipid panel and LFTs in 6 months. Assessment & Plan (06/24/2021 3:28 PM FRESH FOODS CLERK): Continue statin and optimize glycemic control Assessment & Plan (12/19/2020 7:53 AM CDT): Continue statin and optimize glycemic control Assessment & Plan (07/13/2020 8:34 AM FRESH FOODS CLERK): Well controlled on current therapy and will check a lipid panel and LFTs in 6 months. Assessment & Plan (06/08/2020 8:31 AM FRESH FOODS CLERK): LDL within goal. Continue statin and optimize glycemic control Assessment & Plan (07/08/2019 8:42 AM FRESH FOODS CLERK): Well controlled on current therapy and will check a lipid panel and LFTs in 12 months. Assessment & Plan (09/01/2018 2:22 PM FRESH FOODS CLERK): Continue statin, optimize glycemic control Assessment & Plan (07/05/2018 9:23 AM FRESH FOODS CLERK): Well controlled on current therapy and will check a lipid panel and LFTs in 6 months. Assessment & Plan (08/26/2017 4:27 PM FRESH FOODS CLERK): Start atorvastatin and check lipids and LFTs in 3-4 months. Call back for results. Vitamin D deficiency 07/02/2017 Assessment & Plan (07/13/2024 12:22 PM FRESH FOODS CLERK): - Last Vitamin D 42 (12/2023), [...] week Assessment & Plan (09/12/2023 8:12 PM FRESH FOODS CLERK): Continue long-term supplement Assessment & Plan (02/16/2023 8:14 PM CDT): Continue long-term supplement Assessment & Plan (08/02/2022 12:15 PM FRESH FOODS CLERK): Continue current supplementation and check level in 1 year. Assessment & Plan (07/17/2021 2:06 PM FRESH FOODS CLERK): Continue current supplementation and check level in 1 year. Assessment & Plan (06/24/2021 3:29 PM FRESH FOODS CLERK): Continue long-term supplement Assessment & Plan (12/19/2020 7:53 AM CDT): Continue long-term supplement Assessment & Plan (07/13/2020 8:33 AM FRESH FOODS CLERK): Continue current supplementation and check level in 1 year. Assessment & Plan (06/08/2020 8:31 AM FRESH FOODS CLERK): Vitamin-D level within goal, continue chronic supplement Assessment & Plan (07/08/2019 8:42 AM FRESH FOODS CLERK): Continue current supplementation and check level in 1 year. Assessment & Plan (06/03/2019 8:24 AM CDT): Recently ran out of supplement, so we will restart and check her level today. Also check B12 Assessment & Plan (09/01/2018 2:22 PM FRESH FOODS CLERK): Continue supplement Assessment & Plan (07/05/2018 9:23 AM FRESH FOODS CLERK): Continue current supplementation and check level in 1 year. Assessment & Plan (08/26/2017 4:26 PM FRESH FOODS CLERK): Continue current supplementation and check level in 1 year. Uncontrolled type 2 diabetes mellitus with hyper glycemia 03/24/2016 Overview (07/05/2018): Cannot tolerate metformin, glipizide due to nausea/vomiting; Invokana works better than jardiance. Does not tolerate acarbose Assessment & Plan (06/23/2025 10:12 AM FRESH FOODS CLERK): Last A1C Lab Results Component Value Date HGBA1C 8.9 (A) 01/09/2025 Not at goal Increase morning and evening Lantus Increasing Mounjaro to 15 mg Low carb diet Continue current medication Assessment & Plan (03/12/2025 2:20 PM CDT): [...] Value Date HGBA1C 8.9 (A) 01/09/2025 Per [employer], goal A1c is less 7% [...] in further detail. - Continue management with DexSparkupReader G7 CGM. - Advised bolusing <5 minutes [...] that I am available via phone or [employer] if they have any concerns for hypo/hyperglycemia, medication refills, etc. Assessment & Plan (10/12/2024 11:32 AM CDT): - Diabetes is complicated by hyperlipidemia, hypertension, obesity and chronic steroid use. Control is improving with most recent A1c 7.8%. Lab Results Component Value Date HGBA1C 11.7 07/13/2024 Per [employer], goal A1c is less 7% [...] that I am available via phone or [employer] if they have any concerns for hypo/hyperglycemia, medication refills, etc. Assessment & Plan (08/26/2024 6:10 PM FRESH FOODS CLERK): Assessment & Plan (07/13/2024 12:20 PM FRESH FOODS CLERK): - Diabetes is complicated by hyperlipidemia, hypertension, morbid obesity and chronic steroid use. Uncontrolled. Lab Results Component Value Date HGBA1C 11.7 07/13/2024 Per [employer], goal A1c is less 7% [...] in prescriptions for both Dexcom G7 and ManagerCompleteStyle Silva 3 CGM for olivares checking. Also [...] Return visit 3 months to see the ACCOUNTS RECEIVABLE COORDINATOR/PA, 6 months to see me. Assessment [...] Component Value Date HGBA1C 12.5 11/17/2023 Per [employer], goal A1c is less 7% [...] Component Value Date HGBA1C 12.5 11/17/2023 Per [employer], goal A1c is less 7% without significant hypoglycemia. - Management Goal: re-start and adherence to medication regimen - Continue current medication regimen at this time. - Patient called local pharmacy to confirm that they do have prescriptions for her Semglee. 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 - Insurance does [...] that I am available via phone or [employer] if they have any concerns for hypo/hyperglycemia, medication refills, etc. Assessment & Plan (09/12/2023 8:13 PM FRESH FOODS CLERK): Very high glucoses; multifactorial including steroid [...] daily. Assessment & Plan (06/24/2021 3:29 PM FRESH FOODS CLERK): Much improved but needs a little more basal insulin. Assessment & Plan (12/19/2020 7:53 AM CDT): Multiple medications, but now requires insulin. We can gradually adjust her Lantus based on her clinical response. Assessment & Plan (06/08/2020 8:32 AM FRESH FOODS CLERK): Glucoses somewhat better now that she [...] motivator. Assessment & Plan (07/08/2019 8:43 AM FRESH FOODS CLERK): Continue increased dose of Ozempic and also continue Invokana. Importance of dietary changes increase exercise weight loss discussed. Follow-up with her adoption manager as they direct. Assessment & Plan (06/03/2019 8:25 AM CDT): Somewhat suboptimal, would benefit from increasing Ozempic and continuing efforts with diet and lifestyle. Needs follow-up labs Assessment & Plan (09/01/2018 2:22 PM FRESH FOODS CLERK): Glucoses a little high, but she has bruising with Victoza so she may benefit by changing to weekly Ozempic, which is a little stronger, as well. Jardiance is been ineffective, so we may need to provide preauthorization for Invokana Assessment & Plan (07/05/2018 9:23 AM FRESH FOODS CLERK): A1c above goal. We stressed importance of increased exercise, reduce calories, weight loss. Could consider switching Victoza to ozempic. Otherwise does not tolerate metformin or sulfonylureas. May need insulin soon. She is directed to follow up with her adoption manager more quickly than her next scheduled appointment in November. Assessment & Plan (08/26/2017 4:26 PM FRESH FOODS CLERK): Continue current medication regimen and follow up with her adoption manager as they direct. Low carb diet weight loss recommended. Check blood sugars once daily. Start atorvastatin and check lipids and LFTs in 3-4 months. Anxiety state 12/17/2013 Overview (11/07/2016): ANXIETY STATE NOS Benign hypertension 12/17/2013 Overview (11/07/2016): BENIGN HYPERTENSION Assessment & Plan (06/23/2025 11:25 AM FRESH FOODS CLERK): Goal BP <130/80 Well controlled Continue current prescribed medication at current dose Encouraged low salt diet Assessment & Plan (03/12/2025 2:20 PM CDT): [...] mmHg Assessment & Plan (07/13/2024 12:21 PM FRESH FOODS CLERK): - Above goal today - Encouraged [...] monitor. Assessment & Plan (06/08/2023 5:25 PM FRESH FOODS CLERK): Stop amlodipine with current issues of swelling. Pressure currently well controlled and should monitor at home Assessment & Plan (01/21/2023 9:49 AM CDT): Blood pressure well controlled on lisinopril Assessment & Plan (09/04/2022 2:34 PM FRESH FOODS CLERK): Blood pressure well controlled on her lisinopril. Assessment & Plan (08/02/2022 12:15 PM FRESH FOODS CLERK): Increase lisinopril to 20 mg daily. Monitor blood pressure at home call back if no improvement. Assessment & Plan (01/17/2022 10:21 AM CDT): Well controlled on the current regimen. Avoidance of salt, proper body weight, and routine exercise recommended. Assessment & Plan (07/17/2021 2:06 PM FRESH FOODS CLERK): Well controlled on the current regimen. Avoidance of salt, proper body weight, and routine exercise recommended. Assessment & Plan (04/22/2021 8:24 AM CDT): Well controlled on the current regimen. Avoidance of salt, proper body weight, and routine exercise recommended. Assessment & Plan (07/13/2020 8:34 AM FRESH FOODS CLERK): Well controlled on the current regimen. Avoidance of salt, proper body weight, and routine exercise recommended. Assessment & Plan (07/08/2019 8:42 AM FRESH FOODS CLERK): Well controlled on the current regimen. Avoidance of salt, proper body weight, and routine exercise recommended. Assessment & Plan (09/01/2018 2:21 PM FRESH FOODS CLERK): Blood pressure close to target, working on diet and lifestyle Assessment & Plan (07/05/2018 9:23 AM FRESH FOODS CLERK): Well controlled on the current regimen. Avoidance of salt, proper body weight, and routine exercise recommended. Assessment & Plan (08/26/2017 4:25 PM FRESH FOODS CLERK): Well controlled on the current regimen. Avoidance of salt, proper body weight, and routine exercise recommended. Anemia 12/29/2012 Moderate persistent asthma without complication 08/19/2012 Overview (06/03/2019): Description: frequent flares Assessment & Plan (06/23/2025 11:25 AM FRESH FOODS CLERK): Symptoms improved Continue present plan and medication--albuterol prn, Symbicort Follow up pulmonary Assessment & Plan (02/15/2025 10:35 AM CDT): Symptoms improved Continue present plan and medication--albuterol prn, Symbicort Follow up pulmonary Assessment & Plan (12/21/2024 7:50 PM CDT): Symptoms improved Continue present plan and medication--albuterol prn, montelukast Assessment & Plan (08/26/2024 6:08 PM FRESH FOODS CLERK): Recent exacerbation due to CAP followed by RSV Symptoms improved Continue present plan and medication--albuterol prn, montelukast Assessment & Plan (07/13/2020 8:36 AM FRESH FOODS CLERK): Doing well on her Symbicort. Okay to discontinue and use albuterol only as needed. Restart Symbicort if uses her albuterol more than 2 times a week. JEREMY (obstructive sleep apnea) 04/01/2012 Overview (11/12/2017): Description: CPAP Assessment & Plan (06/23/2025 11:25 AM FRESH FOODS CLERK): On CPAP Assessment & Plan (01/06/2024 9:08 AM CDT): Patient is compliant with the CPAP machine and gets symptomatic relief. Assessment & Plan (08/02/2022 12:15 PM FRESH FOODS CLERK): Patient is compliant with the CPAP machine and gets symptomatic relief. Assessment & Plan (07/17/2021 2:06 PM FRESH FOODS CLERK): Repeat sleep study confirmed obstructive sleep [...] syndrome. Assessment & Plan (07/13/2020 8:34 AM FRESH FOODS CLERK): Patient is compliant with the CPAP machine and gets symptomatic relief. Assessment & Plan (07/08/2019 8:42 AM FRESH FOODS CLERK): Patient is compliant with the CPAP machine and gets symptomatic relief. Female infertility associated with anovulation 0 09/21/2011 Resolved Problems Problem Noted Date Diagnosed Date Resolved Date Pulmonary hypertension 06/23/202506/23 Diastolic heart failure 06/23/202506/04 Decreased functional mobility and endurance 12/29/2024 02/15/2025 Uncontrolled diabetes mellit us with hyperglycemia 08/14/2024 12/21/2024 Acute hypoxic respiratory failure 08/13/2024 12/21/2024 Assessment & Plan (08/26/2024 6:09 PM FRESH FOODS CLERK): Recent hospitalization likely for CAP followed [...] legs Assessment & Plan (06/15/2023 10:47 AM FRESH FOODS CLERK): Improved after addition of doxycycline to her Bactrim. Call back if symptoms worsen after doxycycline runs out Assessment & Plan (06/08/2023 5:25 PM FRESH FOODS CLERK): Seems like cellulitis slow to improve [...] 12/21/2024 Assessment & Plan (09/04/2022 2:35 PM FRESH FOODS CLERK): No signs of neurological abnormality on [...] Continue other medications as directed by her adoption manager. Diet exercise discussed. Hopefully may be able to wean prednisone in the near future as well. Assessment & Plan (06/15/2023 10:48 AM FRESH FOODS CLERK): She knows that the steroids will exacerbate her hyperglycemia and should be in contact with her adoption manager for management. Assessment & Plan (06/08/2023 5:26 PM FRESH FOODS CLERK): Poor control of her diabetes prior to this hospitalization and even worse now on prednisone. Follow-up with her adoption manager for management. Diet exercise weight loss recommended. Assessment & Plan (01/21/2023 9:50 AM CDT): Blood sugars remain above goal. Hopefully the recent addition of mounjaro will help significantly. Discuss up titration of this and her mealtime insulin with her adoption manager. Diet exercise discussed. Check A1c and fasting blood sugar before next visit. Assessment & Plan (08/02/2022 12:16 PM FRESH FOODS CLERK): A1c poorly controlled. Importance of diet exercise weight loss discussed at length. Continue her Ozempic and insulin and needs to contact her adoption manager soon as possible for guidance on further therapy. Assessment & Plan (01/17/2022 10:22 AM CDT): Patient aware A1c grossly uncontrolled. Must work on diet exercise and weight loss. She has to get back on her insulin and should discuss this today with her adoption manager. Risks posed her health with poor glycemic control discussed. Assessment & Plan (07/13/2020 8:34 AM FRESH FOODS CLERK): A1c above goal. Importance of diet exercise weight loss discussed. Continue current medication regimen and follow-up with her adoption manager as they direct. Dyslipidemia 06/03/2019 07/13/2020 [...] yearly. Colonoscopy due March 2027. Follow-up the coater carbon paper for breast exam pelvic exam as they direct. Will see her back in about 6 months sooner if needed. Assessment & Plan (08/02/2022 12:17 PM FRESH FOODS CLERK): Flu shot each May. Tetanus booster every 10 years. Pneumovax completed. COVID booster recommended. Mammogram yearly. Colonoscopy due March 2027. Follow-up the coater carbon paper for breast exam pelvic exam as they direct. Will see her back in 6 months with lab sooner if needed. Assessment & Plan (07/17/2021 2:08 PM FRESH FOODS CLERK): Flu shot each May. Tetanus booster every 10 years. Pneumovax completed. COVID vaccine completed. Mammogram yearly. Colonoscopy ordered and she should verify coverage before proceeding. Follow-up the coater carbon paper for breast exam and pelvic exam as they direct. We will see her back in 1 year for physical and fasting lab sooner if needed. Assessment & Plan (07/13/2020 8:35 AM FRESH FOODS CLERK): Flu shot each May. Tetanus booster every 10 years. She has had a Pneumovax. Mammogram was abnormal back in August and she has delayed follow-up studies until now and she is urged to get her diagnostic and ultrasound studies done at her earliest convenience and she is aware of the risks posed her health with delay in proceeding. Follow-up the coater carbon paper for breast exam and pelvic exam as they direct. We will see her back in 1 year for wellness visit fasting lab sooner if needed. Assessment & Plan (07/08/2019 8:43 AM FRESH FOODS CLERK): Flu shot each May. Tetanus booster every 10 years. Mammogram ordered. Will see her back in 1 year for physical and fasting lab sooner if needed. Assessment & Plan (07/05/2018 9:24 AM FRESH FOODS CLERK): Tetanus booster today. Flu shot each May. Mammogram ordered. Patient should follow-up the coater carbon paper breast exam and pelvic exam. We will see her back in 1 year for wellness visit fasting lab sooner if needed. Assessment & Plan (08/26/2017 4:27 PM FRESH FOODS CLERK): Flu shot each May. Tetanus booster every 10 years. See her coater carbon paper for breast exam mammogram and Pap smear [...] aerobics Assessment & Plan (08/26/2017 4:28 PM FRESH FOODS CLERK): Patient is encouraged to lose weight [...] 92 02/11 echo (TDS): EF 55%, trace LAY DAWSON 24 Edema 09/21/2011 08/26/2024 Encounters Date Type Department Care Team Description 06/23/2025 10:15 AM FRESH FOODS CLERK Office Visit [facility] - [address] [place] [phone] Lynn Rodriguez MD Uncontrolled type 2 diabetes mellitus with hyperglycemia (HCC) (Primary Dx); Benign hypertension; Mixed hyperlipidemia; JEREMY (obstructive sleep apnea); Moderate persistent asthma without complication; Class 3 severe obesity due to excess calories with serious comorbidity and body mass index (BMI) of 50.0 to 59.9 in adult; Need for hepatitis C screening test; Need for hepatitis B screening test 06/20/2025 Telephone [facility] - [address] [place] [phone] Lynn Rodriguez MD Medical Question/Miscellan eous 06/09/2025 Telephone [facility] at [address] [phone] Lynn Rodriguez MD 06/06/2025 9:23 AM FRESH FOODS CLERK - 06/06/2025 11:59 PM FRESH FOODS CLERK Hospital Encounter [facility] [address] [place] [address] Darshan Frank NP Chronic right-sided low back pain with right-sided sciatica (Primary Dx); Spinal stenosis of lumbar region with neurogenic claudication Discharge Disposition: Discharge to home or self care 06/06/2025 Documentation [facility] [address] [place] [phone] Clayton Basurto RN Prior Auth (Belbuca 150mcg films) 06/02/2025 9:00 AM CDT Office Visit [facility] - [address], [place] [address] Jesica Mina NP Acute deep vein thrombosis (DVT) of right lower extremity, unspecified vein (HCC) (Primary Dx); Allergic rhinitis, unspecified seasonality, unspecified trigger; Vertigo 05/31/2025 Telephone [facility] - [facility] [facility] [address] Lynn Rodriguez MD MARY Questions 05/23/2025 Telephone [facility] at [address] [place] [phone] Jory Sage NP 05/22/2025 11:39 AM CDT - 05/22/2025 11:59 PM CDT Hospital Encounter [facility] [address] [place] [address] Adam Corrales MD Radiculopathy, lumbosacral region [M54.17] (Primary Dx); Spinal stenosis of lumbar region with neurogenic claudication Discharge Disposition: Discharge to home or self care 05/15/2025 Telephone [facility] [place] [address] Tigist Shultz 04/18/2025 Telephone [facility] [place] [address] Tigist Shultz 04/07/2025 9:30 AM CDT Office Visit [facility] at [address] [place] [phone] Iqra Jensen MD JEREMY (obstructive sleep apnea) (Primary Dx); Hypersomnia; Obesity, unspecified class, unspecified obesity type, unspecified whether serious comorbidity present; Restless leg syndrome 04/06/2025 Telephone [facility] [address] [place] [address] [address] [place] [phone] Iqra Jensen MD 04/04/2025 11:30 AM CDT Lab [facility] Medicine Endocrinology Metabolism and Lipid [address] [facility] 5th [place] [address] [place] [address] Elevated liver function tests 04/04/2025 11:00 AM CDT Office Visit [facility] Medicine Rheumatology [address] [facility] [address] 5th [address] [place] [address] Lucian Trinidad MD 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 [place] at [place] [address] [place] [address] [address] [place] [address] Iqra Jensen MD 03/29/2025 Results Follow-Up [facility] Gastroenterology at [place] [address] [facility] [address] [place] [address] Ad Camacho MD Surgical pathology 03/28/2025 7:00 PM CDT - 03/28/2025 11:59 PM CDT Hospital Encounter [facility] [address] [place] [address] JEREMY (obstructive sleep apnea) Discharge Disposition: Discharge to home or self care 03/27/2025 Telephone [facility] at [address] [place] [address] Adelina Little, PT Appointment from Last 3 Months Immunizations Immunization Administration Dates Next Due Influenza, Quadrivalent, Rosita l Culture-based MDCK, Preservative Free, Antibiotic Free, Intramuscular 05/13/2023,05/23/2022 Influenza, Quadrivalent, Spl it, Intramuscular 05/03/2015 Influenza, Quadrivalent, Spl it, Preservative Free, Intramuscular 05/16/2020,05/07/2018 Influenza, Trivalent, Preser vative Free, Intramuscular 09/24/2024 Influenza, Unspecified 05/16/2021,2020,04/22/2021(Defer red: Patient Refused),03/19/2021(Deferred: Patient Refused),05/12/2019,05/07/2017 Pay4later (J&J) SARS-CoV-2 Vaccination 10/05/2020 Pneumococcal Conjugate Pcv20 05/30/2024,04/06/20 24 Pneumococcal Polysaccharide PPV23 08/03/2010, Td, adsorbed 07/05/2018 Tdap 10/04/2007 Surgical History Surgery Date Site/Laterality Comments OTHER SURGICAL HISTORY Sleep apnea: CPAP OTHER SURGICAL HISTORY Internal derangement of the knee: knee arthroscopy MYOMECTOMY Myomectomy COLONOSCOPY 04/02/2022 KNEE ARTHROSCOPY W/ LATERAL RELEASE ABDOMINAL SURGERY Medical History Medical History Date Comments Hypertension Hypertension Hx Other Medical Hyperlipidemia; Comments: [facility] 04/11/2014 - Hx Other Medical Diabetes; Comme nts: [facility] 04/11/2014 - Hx Other Medical Seasonal allerg ies; Comments: [facility] 04/11/2014 - Hx Other Medical Sleep [...] IVF transfer 2015 Hx Other Medical 01: [employer] -- Dr Estefani Sheikh Morbid obesity (HCC) [...] points, staff should administer the PHQ-9) 0 06/23/2025 Personal Safety Answer Date Recorded Have you ever been in or are you currently in a harmful physical or emotional relationship or is someone making you feel afraid or unsafe? Denies 03/20/2025 Comments No Sex and Gender Information Value Date Recorded Sex Assigned at Not on file Legal Sex Female 11:54 PM FRESH FOODS CLERK Gender Identity Female 09/19/2020 8:37 AM FRESH FOODS CLERK Sexual Orientation Straight 09/19/2020 8: 37 AM FRESH FOODS CLERK Obstetrics History Para Term AB IAB SAB Ectopic Multiple Livin g Live Births 0 0 0 Last Filed Vital Signs Vital Sign Reading Time Taken Comments Blood Pressure 116/74 06/23/2025 10:01 AM FRESH FOODS CLERK Pulse 99 06/23/2025 10:01 AM FRESH FOODS CLERK Temperature 36.6 C (97.8 F) 06/23/2025 10:01 AM FRESH FOODS CLERK Respiratory Rate 18 06/23/2025 10:01 AM FRESH FOODS CLERK Oxygen Saturation 99% 06/23/2025 10:01 AM FRESH FOODS CLERK Inhaled Oxygen Concentration - - Weight 146 kg (321 lb 12.8 oz) 06/23/2025 10:01 AM FRESH FOODS CLERK Height 167.6 cm (5' 6) 06/23/2025 10:01 AM FRESH FOODS CLERK Body Mass Index 51.94 06/23/2025 10:01 AM FRESH FOODS CLERK Plan of Treatment Health Maintenance Due Date Last Done Comments Hepatitis C Screening 1975 Hepatitis B Screening 1994 Dilated Eye Exam 11/10/2024 11/10/2022, 03/2022, 04/23/2021, Additional history exists Regular Well Visit/Exam 18-64 01/04/2025, 07/18/2022, 07/17/2021, Additional history exists Foot Exam 04/06/2025 04/06/2024, 07/03, 03/26/2021, Additional history exists Hemoglobin A1C 07/11/2025 01/09/2025, 08/03, 07/13/2024, Additional history exists Covid-19 Vaccine (2024- 6 season) 2025 05/02/2025, 05/13/2023, 05/23/2022, Additional history exists Albumin Creatinine Ratio, Urine 01/09/2026 01/09/2025, 12/29/2023, 12/29/2023, Additional history exists Breast Cancer Screening-Mammogram 01/09/2026 01/09/2025, 12/29/2023, 02/25/2023, Additional history exists Lipid Panel 01/09/2026 01/09/2025, 12/02, 12/29/2023, Additional history exists eGFR 02/15/2026 02/15/2025, 06/0 04/2025, 11/09/2024, Additional history exists Depression Screening 06/23/2026 06/23/2025, 06/02/2025, 02/15/2025, Additional history exists Colon Cancer Screening-Colonoscopy 04/02/20272021 Cervical Cancer Screening 05/17/2029 05/17/2024 DTaP/Tdap/Td Vaccine (4 - Td or Tdap) [...] Lumbar/Sacral Selective Nerve Root INJ (TFE) Right ([id number]) (05/22/2025 12:41 PM CDT) Narrative RAD_PACS_CH - 05/22/2025 12:46 PM CDT The images from this study are not interpreted by Radiology. Please refer to the physician's procedure / OR operative note. us Amada Baldwin ACCOUNTS RECEIVABLE COORDINATOR IMG PAIN MGMT PROCEDURE S Final Result [...] AM CDT 04/04/2025 12:43 PM CDT [facility] [place] LAB BLOOD ORDERABLE S Final Result Performing Organization Address [facility] Co de Phone Number [facility] * PSG (03/30/2025) Impressions Iqra Jensen MD - 03/30/2025 Baseline Polysomnogram History: Camila Huitron is a 49 y.o. female who presents for baseline polysomnogram. Reason for sleep study: Obstructive sleep apnea [place] sleepiness score: 6 Weight: 311 lbs BMI: 50.23 Procedure: This overnight diagnostic baseline polysomnogram was performed with the hematology technologist in attendance. Patient is studied with [...] scored according to the criteria from The [place] Academy of Sleep Medicine (AASM) Manual for [...] Clinical correlation is recommended. Iqra Jensen MD [facility] Sleep Medicine Narrative Iqra Jensen [...] BLOOD ORDERABLE S Final Result [facility] [address] [address] [facility] [place] [address] * Albumin Creatinine Ratio, Urine (01/09/2025 12:30 PM CDT) Albumin Ur 37.8 mg/L Comment: Interpretive Data No reference range established. Current interpretive data was last revised 2018. Creatinine Ur 353.8 mg/dL [facility] Comment: Interpretive Data No reference range established. Current interpretive data was last revised 2018. Albumin Creatinine Ratio, Ur 11 1 - 29 mg/g [facility] Urine 01/09/2025 12:3 0 PM CDT 01/09/2025 1:18 PM CDT Shirley Teixeira [facility] LAB URINE ORDERABLE S Final Result Performing Organization Address City/[facility] Co de Phone Number [facility] Department [place] [address] * (ABNORMAL) Lipid panel (01/09/2025 12:30 PM [...] on 2018. Triglycerides 334(H) <=149 mg/dL [facility] Comment: Interpretive Data Ages < or [...] on 2018. HDL 75 >=40 mg/dL [facility] Comment: Interpretive Data Ages < or [...] 2018. LDL, calculated 127 <=129 mg/dL [facility] Comment: Interpretive Data Ages < or [...] Jara et al. PHILIP Cardiol. 2020 December 01;5(5):540-544. doi: 10.1001/jamacardio.2020.0013 Current Interpretive Data was last revised on 2024. Non-HDL Cholesterol 185 mg/dL [facility] Comment: Interpretive Data Ages < or [...] last revised on 2018. Chol/HDL ratio 3 [facility] Blood 01/09/2025 12:3 0 PM CDT 01/09/2025 1:18 PM CDT [facility] [place] LAB BLOOD ORDERABLE S Final Result [facility] Department [place] [address] * Screening Mammogram Bilateral W Vincenzo (01/09/2025 [...] 01/09/2025 10:4 4 AM CDT us Shirley Teixeira [facility] POINT OF CARE TEST ORDERABLES Final Result * Diabetic Eye Exam (11/10/2022) us Generic External Data Provider HEALTH MAINTENANC E Final Result * COLONOSCOPY (04/02/2022 9:28 AM CDT) Anatomical Region Laterality Modality Other Narrative Procedure Note Ad Camacho MD - 04/02/2022 9:28 AM CDT [facility] Patient Name: Camila Huitron Procedure Date: 04/02/2022 9:28 AM Date of : 1975 Admit Type: Outpatient Age: 46 Gender: Female Attending MD: Ad Camacho M.D. Room: [facility]COPY ROOM 2 Note Status: Finalized Patient [...] scope was passed under direct vision. TheColonoscope [id number] was introduced through the anus and advanced [...] 9:28 AM Procedure Code(s): --- Professional --- 87149, Colonoscopy, flexible; with biopsy, single or multiple Diagnosis Code(s): --- Professional --- Z12.11, Encounter for screening for malignant neoplasm of colon D12.3, Benign neoplasm of transverse colon (hepatic flexure orsplenic flexure) D12.4, Benign neoplasm of descending colon D12.8, Benign neoplasm of rectum CPT copyright 2020 Australian Medical Association. All rights reserved. The codes documented in this report are preliminary and upon charge account authorizer reviewmay be revised to meet current compliance requirements. Recognized by the [place] Society for Gastrointestinal Endoscopy for promoting quality in endoscopy Ad Camacho MD ENDOSCOPY PROCEDURES Final Resul t * Diabetic Foot Exam (03/26/2021) Adamariss Art Staley MA - 03/26/2021 In care everywhere Historical Provider HEALTH MAINTENANCE Final Result from Last 3 Months or Most Recently Relevant to Health Maintenance Insurance [place] [id number] [facility] [id number] Advance Directives For more information, please contact: [phone] * Full Code (Latest Code Status on File) Date Activated Date Inactivated Comments 03/20/2025 7:48 AM 03/20/2025 1:42 PM * Full Code Date Activated Date Inactivated Comments 03/20/2025 7:48 AM 03/20/2025 7:48 AM * Full Code Date Activated Date Inactivated Comments 04/02/2022 9:27 AM 04/02/2022 4:47 PM * Full Code Date Activated Date Inactivated Comments 04/02/2022 9:27 AM 04/02/2022 9:27 AM Care Teams Training And Development Manager Relationship Specialty [place] [address] [facility] [address] [place] [address] PCP - General Internal Medicine 04/06/24 Ann Serrano MD Referring Physician Endocrinology Diabetes & Metabolism 06/08/20
--- OUTSIDE RECORDS SUMMARY | 2025-06-25 19:38 | XMS_ITS | Encounter Summary ---
Author Organization [facility] Address [address] [place] [address] Care Team Providers Care Electron Gun Inspector Name Role Phone Tiffany Cox MD Primary Care Provider Unavailable Kishor Saleh MD Primary Care Provider Encounter Details Date Type Department Care Team (Late st Contact Info) Description 07/03/2023 Lab Requisition [facility] - DermPath Lab [address] [place] [address] [place] [address] [address] Social History Tobacco Use Types Packs/Day Years Used Date Smoking Tobacco: Never Assessed Comments Unknown Sex and Gender Information Value Date Recorded Sex Assigned at Not on file Legal Sex Female 4:50 AM COTTON BUYER Gender Identity Not on file Sexual Orientation Not on file documented as of this encounter Plan of Treatment Not on file documented as of this encounter Procedures Procedure Name Priority Date/Time Associated Diagnosis Comments IMMUNOFLUORESCENT STUDY DERM Routine 07/01/2023 3:33 AM COTTON BUYER documented in this encounter Results * IMMUNOFLUORESCENT STUDY DERM (07/01/2023 3:33 AM COTTON BUYER) Case Report Dermatopathol ogy Report Case: [id number] Authorizing Provider: Kendrick Christopher MD Collected: 07/01/2023 03:33 AM Ordering Location: [facility] D[facility]Path Lab Received: 07/03/2023 12:13 PM Pathologist: Bella Schwab MD Specimen: Skin, right superior han 3:46 PM [facility] DERMATOPATHOLOGY LABORATORY Final Diagnosis Specimen A. SKIN, right superior han: COLLOID BODIES (L98.9) (see microscopic description) (see fixed tissue results) 3 3:46 PM [facility] DERMATOPATHOLOGY LABORATORY at [address] COTTON BUYER Direct Immunofluorescence Report - Specimen A Specimen A IgA IgM IgG C3 CollV Fibrinogen Epidermis Negative Negative Negative Negative Negative Negative Basement Membrane Negative Negative Negative Negative 2+ Negative Vessels Negative Negative Negative Negative 2+ Negative Interstitium Colloid Colloid Colloid Negative Negative Non specific 3 3:46 PM [facility] DERMATOPATHOLOGY LABORATORY Clinical History Rash; R/O Leukocytoclas tic Vasculitis, Livedo Reticularis 3 3:46 PM [facility] DERMATOPATHOLOGY LABORATORY Gross Description Specimen A: Received is one Jatinder's media filled container labeled with the patient's name and designated right superior han. The specimen consists of a punch biopsy measuring 5x4x4 mm. The specimen is submitted in whole for direct immunofluores cence testing. 3:46 PM [facility] DERMATOPATHOLOGY LABORATORY Microscopic Description Specimen [...] See fixed tissue results. 3 3:46 PM [facility] DERMATOPATHOLOGY LABORATORY Disclaimer An external and internal positive and negative controls are appropriate for the histochemical , immunohistoch emical and immunofluores cence stain(s) in this case (if any), except where stated explicitly. The performance characteristi cs of the stain(s) cited in this report were developed and its performance characteristi c determined by the Dermatopathol ogy Laboratory at [facility], directed by Dr. Arnol Perea. These tests need not be, and therefore are not, approved by the [place] Food and Drug Administratio n. The tests are used for clinical purposes. Billing Codes Specimen Charges Stain Charges 35678 06455 99082 81754 47220 53429 1 1 1 1 1 1 3 3:46 PM COTTON BUYER DERMATOPATHOLOGY LABORATORY Embedded Images 3 3:46 PM COTTON BUYER DERMATOPATHOLOGY LABORATORY Pathology/Cytolo gy TISSUE SPECIMEN FROM SKIN / Unknown 07/01/2023 3:33 AM COTTON BUYER 07/03/2023 12:13 PM COTTON BUYER Kendrick Christopher MD LAB - PATHOLOGY/CYTOLOGY O RDERABLES Final Result DERMATOPATHOLOGY LABORATORY [facility] - Department of Dermatology [facility] Medicine [address] [place] [address], [address] [phone] documented in this encounter Visit Diagnoses Not on filedocumented in this encounter Additional Health Concerns Infection Onset Date Last Indicated Resolved Time COVID-19 Under Investigation 08/13/2024 08/13/2024 08/13/2024 11:30 PM COTTON BUYER documented as of this encounter Care Teams Electron Gun Inspector Relationship Specialty Start Date End Date Tiffany Cox MD PCP - General Internal Medicine 05/16/13 07/30/23 Kishor Saleh MD [address] [place] [address] [address] [place] [address] PCP - General Internal Medicine 07/31/23 documented as of this encounter
--- OUTSIDE RECORDS SUMMARY | 2025-06-25 19:38 | XMS_ITS | Encounter Summary ---
Author Organization [facility] Healthcare Address [address] [place] [address] Care Team Providers Care Bolt Maker Name Role Phone Ann Serrano MD Unavailable Lynn Rodriguez MD Primary Care Provider Reason for Visit * Reason Onset Date Comments Medical Question/Miscellaneous 06/20/2025 Encounter Details Date Type Department Care Team (Late st Contact Info) Description 06/20/2025 Telephone [facility] Primary Care at [facility] - [address] [place] [phone] [place] [id number] [address] Medical Question/Miscellaneous Social History Tobacco [...] on file Legal Sex Female 11:54 PM GLOVE CLEANER Gender Identity Female 09/19/2020 8:37 AM GLOVE CLEANER Sexual Orientation Straight 09/19/2020 8: 37 AM GLOVE CLEANER documented as of this encounter Functional Status * BP Location Answer Date of Assessment Author Left arm 06/23/2025 10:01 AM GLOVE CLEANER Paula Ge MA * BP Location Answer Date of Assessment Author Left arm 06/23/2025 10:01 AM GLOVE CLEANER Paula Ge MA documented as of this encounter [...] message need to be routed? Yes-FYI Only E CLEANER documented in this encounter Plan of Treatment Not on file documented as of this encounter Visit Diagnoses Not on filedocumented in this encounter Care Teams Bolt Maker Relationship Specialty [place] [id number] [address] PCP - General Internal Medicine 04/06/24 Ann Serrano MD Referring Physician Endocrinology Diabetes & Metabolism 06/08/20 documented as of this encounter
--- OUTSIDE RECORDS SUMMARY | 2025-06-25 19:38 | XMS_ITS | Encounter Summary ---
Author Organization [facility] Health Address [address] [facility] [address] Care Team Providers Care Video Network Engineer Name Role Phone Tiffany Cox MD Primary Care Provider Unavailable Kishor Saleh MD Primary Care Provider [phone] Encounter Details Date Type Department Care Team (Late st Contact Info) Description 07/03/2023 Lab Requisition [facility] - [facility]erm[facility] Lab [address] [place] [phone] [place] [address] [facility] [address] [place] [address] Social History Tobacco Use Types Packs/Day Years Used Date Smoking Tobacco: Never Assessed Comments Unknown Sex and Gender Information Value Date Recorded Sex Assigned at Not on file Legal Sex Female 4:50 AM PROFESSOR OF GRAPHIC DESIGN Gender Identity Not on file Sexual Orientation Not on file documented as of this encounter Plan of Treatment Not on file documented as of this encounter Visit Diagnoses Not on filedocumented in this encounter Additional Health Concerns Infection Onset Date Last Indicated Resolved Time COVID-19 Under Investigation 08/13/2024 08/13/2024 08/13/2024 11:30 PM PROFESSOR OF GRAPHIC DESIGN documented as of this encounter Care Teams Video Network Engineer Relationship Specialty Start Date End Date Tiffany Cox MD PCP - General Internal Medicine 05/16/13 07/30/23 Kishor Saleh MD [address] [place] [address] [address] [place] [address] PCP - General Internal Medicine 07/31/23 documented as of this encounter
--- OUTSIDE RECORDS SUMMARY | 2025-06-25 19:38 | XMS_ITS | Encounter Summary ---
Author Organization [facility] Health Address [address] [facility] [place] [address] Care Team Providers Care Experimental Mechanic Electrical Name Role Phone Tiffany Cox MD Primary Care Provider Unavailable Kishor Saleh MD Primary Care Provider Encounter Details Date Type Department Care Team (Late st Contact Info) Description 07/03/2023 Lab Requisition [facility] Derm[facility] Lab [address] [place] [id number] [place] [address] [facility] [address] [place] [address] Social History Tobacco Use Types Packs/Day Years Used Date Smoking Tobacco: Never Assessed Comments Unknown Sex and Gender Information Value Date Recorded Sex Assigned at Not on file Legal Sex Female 4:50 AM PEDIATRIC INTENSIVE PHYSICIAN Gender Identity Not on file Sexual Orientation Not on file documented as of this encounter Plan of Treatment Not on file documented as of this encounter Visit Diagnoses Not on filedocumented in this encounter Additional Health Concerns Infection Onset Date Last Indicated Resolved Time COVID-19 Under Investigation 08/13/2024 08/13/2024 08/13/2024 11:30 PM PEDIATRIC INTENSIVE PHYSICIAN documented as of this encounter Care Teams Experimental Mechanic Electrical Relationship Specialty Start Date End Date Tiffany Cox MD PCP - General Internal Medicine 05/16/13 07/30/23 Kishor Saleh MD [address] [place] [address] [address] [place] [address] PCP - General Internal Medicine 07/31/23 documented as of this encounter
--- OUTSIDE RECORDS SUMMARY | 2025-06-25 19:38 | XMS_ITS | Encounter Summary ---
Author Organization [facility] Address [address] [facility] [place] [address] Care Team Providers Care Seed Pelleter Name Role Phone Tiffany Cox MD Primary Care Provider Unavailable Kishor Saleh MD Primary Care Provider [phone] Encounter Details Date Type Department Care Team (Late st Contact Info) Description 07/03/2023 Lab Requisition [facility] - DermPath Lab [address] [place] [address] [place] [address] [address] Social History Tobacco Use Types Packs/Day Years Used Date Smoking Tobacco: Never Assessed Comments Unknown Sex and Gender Information Value Date Recorded Sex Assigned at Not on file Legal Sex Female 4:50 AM LUBRICATION SERVICER Gender Identity Not on file Sexual Orientation Not on file documented as of this encounter Plan of Treatment Not on file documented as of this encounter Procedures Procedure Name Priority Date/Time Associated Diagnosis Comments DERMATOPATHOLOGY Routine 07/01/2023 3:33 AM LUBRICATION SERVICER documented in this encounter Results * DERMATOPATHOLOGY (07/01/2023 3:33 AM LUBRICATION SERVICER) Case Report Dermatopathology Report Case: [id number] Authorizing Provider: Kendrick Christopher MD Collected: 07/01/2023 03:33 AM Ordering Location: [facility] DermPath Lab Received: 07/03/2023 12:12 PM Pathologist: Bella Schwab MD Specimen: Skin, right inferior knee 3:45 PM [facility] DERMATOPATHOLOGY LABORATORY Final Diagnosis Specimen A. SKIN, right inferior knee: STASIS DERMATITIS (L30.8) DERMAL FIBROSIS (L90.5) (see microscopic description) 3 3:45 PM [facility] DERMATOPATHOLOGY LABORATORY at 1545 LUBRICATION SERVICER Clinical History Rash; R/O Leukocytoclastic Vasculitis, Livedo Reticularis 3 3:45 PM [facility] [...] by the Dermatopathology Laboratory at [facility], directed by Dr. Arnol Perea. These tests need not be, and therefore are not, approved by the [place] Food and Drug Administration. The tests are used for clinical purposes. Billing Codes Specimen Charges Stain Charges 65480 1 56377 1 3 3:45 PM [facility] DERMATOPATHOLOGY [facility]ORATORY Embedded Images 3 3:45 PM [facility] DERMATOPATHOLOGY [facility]ORATORY Pathology/Cytolo gy TISSUE SPECIMEN FROM SKIN / Unknown 07/01/2023 3:33 AM LUBRICATION SERVICER 07/03/2023 12:12 PM LUBRICATION SERVICER Kendrick Christopher MD LAB - PATHOLOGY/CYTOLOGY O RDERABLES Final Result DERMATOPATHOLOGY LABORATORY [facility] - Department of Dermatology [facility] Medicine [address] [place] [address], [address] [phone] documented in this encounter Visit Diagnoses Not on filedocumented in this encounter Additional Health Concerns Infection Onset Date Last Indicated Resolved Time COVID-19 Under Investigation 08/13/2024 08/13/2024 08/13/2024 11:30 PM LUBRICATION SERVICER documented as of this encounter Care Teams Seed Pelleter Relationship Specialty Start Date End Date Tiffany Cox MD PCP - General Internal Medicine 05/16/13 07/30/23 Kishor Saleh MD [address] [place] [address] [address] [place] [address] PCP - General Internal Medicine 07/31/23 documented as of this encounter
--- OUTSIDE RECORDS SUMMARY | 2025-06-25 19:38 | XMS_ITS | Encounter Summary ---
Author Organization [facility] Address [address] [place] [address] Care Team Providers Care Industrial Twisting Machine Operator Name Role Phone Ann Serrano MD Unavailable [phone] Lynn Rodriguez MD Primary Care Provider Reason for Visit * Reason Onset Date Comments MARY Questions 05/31/2025 Encounter Details Date Type Department Care Team (Late st Contact Info) Description 05/31/2025 Telephone [facility] Primary Care at [facility] - [address] [place] [phone] [place] [address] [address] MARY Questions Social History Tobacco [...] on file Legal Sex Female 11:54 PM MASTER BLACK BELT Gender Identity Female 09/19/2020 8:37 AM MASTER BLACK BELT Sexual Orientation Straight 09/19/2020 8: 37 AM MASTER BLACK BELT documented as of this encounter Functional Status * BP Location Answer Date of Assessment Author Left arm 06/02/2025 9:10 AM CDT Avis Ge MA * BP Location Answer Date of Assessment Author Left arm 06/02/2025 9:10 AM CDT Avis Ge MA documented as of this encounter Miscellaneous Notes * Telephone Encounter - Tammy Schilling - 05/31/2025 9:53 AM CDT MARY Questions (Message from [facility] Machine Operator Helper): Has patient been discharged at time of call? Yes Date Admitted: 05/24/25 Date Discharged: 05/27/25 Facility Admitted To: [facility] Reason for Stay? Cellulitis and blood [...] on filedocumented in this encounter Care Teams Industrial Twisting Machine Operator Relationship Specialty [place] [address] [address] PCP - General Internal Medicine 04/06/24 Ann Serrano MD Referring Physician Endocrinology Diabetes & Metabolism 06/08/20 documented as of this encounter
--- OUTSIDE RECORDS SUMMARY | 2025-06-25 19:38 | XMS_ITS | Clinical Summary ---
Author Organization [facility] Address [address] [place] [address] Phone Care Team Providers Care Cloth Folder Machine Name Role Phone Masoud Hayes MD Primary [...] mouth daily. 30 Tablet 3 2:47 PM DISPENSARY TECHNICIAN 08/13/19 23 Active amLODIPine (NORVASC) 2.5 mg tablet Take 1 Tablet (2.5 mg) by mouth daily in the morning. 90 Tablet 3 5:55 PM CDT 05/29/20 23 Active cyclobenzaprine (FLEXERIL) 5 mg Tablet TAKE 1-2 TABLETS BY MOUTH NIGHTLY TO REDUCE MUSCLE CRAMPS 60 Tablet 3 3 3:38 PM DISPENSARY TECHNICIAN 06/23/20 23 Active hydroxychloroqu ine (PLAQUENIL) 200 mg tablet TAKE 2 TABLETS BY MOUTH ONCE DAILY 60 Tablet 3 3 3:38 PM DISPENSARY TECHNICIAN 06/23/20 23 Active mycophenolate mofetil (CELLCEPT) 500 mg tablet TAKE 3 TABLETS BY MOUTH TWICE DAILY 180 Tablet 4 3 3:38 PM DISPENSARY TECHNICIAN 06/23/20 23 Active insulin glargine (LANTUS) 100 [...] for pain 30 Tablet 4 12:19 PM DISPENSARY TECHNICIAN 04/27/20 24 Active methylPREDNISol one (Medrol, Marvel,) [...] 23 Active fluticasone propionate (FLONASE) 50 mcg/spray [place], Suspension nasal inhaler Administer 2 Sprays in each nostril 1 time daily as needed. 02/24/20 23 Active folic acid (FOLVITE) 1 mg tablet 05/03/20 24 Active gabapentin (NEURONTIN) 300 mg capsule 05/03/20 24 Active glucagon (BAQSIMI) 3 mg/spray Brunson, Non-Aerosol Administer 1 Brunson in each nostril. 11/17/19 24 Active insulin [...] daily. 120 Tablet 3 5 3:51 PM DISPENSARY TECHNICIAN 06/17/20 24 Active tirzepatide (Mounjaro) 10 mg/0.5 mL Pen Injector Inject 10 mg under the skin every 7 days 2 mL 3 5 4:41 PM DISPENSARY TECHNICIAN 07/13/20 24 Active isosorbide dinitrate (ISORDIL) 5 [...] 4 times dialy. 08/09/19 25 Active Insulin Starbuck, Disposable, 32 gauge x 5/32 Needle Use to inject insulin up as directed to 5 times daily. 07/13/20 24 Active lancets 33 gauge Use to check blood sugar as directed up to 4 times daily. 07/13/20 24 Active Blood-Glucose Sensor (Hubspan G7 Sensor) Device Use for continuous glucose [...] migh t be different from the original. Second Grade Teacher: Dr. 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 See individual assays for performing site location. CLINICAL INFORMATION [facility] Comment:None given LAST MENSTRUAL PERIOD [facility] Comment:10/02/2023 PREV PAP: [facility] [place] Comment:NONE GIVEN PREV BX: [facility] [place] Comment:NONE GIVEN SOURCE [facility] [place] Comment:Endocervix ADEQUACY: [facility] [place] Comment: Satisfactory for evaluation. Endocervical/transformation zone component absent. PAP INTERP [facility] Comment: Cytology Results: Negative for intraepithelial lesion or malignancy. COMMENT (PAP TEST) [facility] [place] Comment: This Pap test has been evaluated with computer assisted technology. DELIVERY ANALYST: Ni Ramirez Comment: MEF, CT(ASCP) CT screening location: [place] [address] [place] [address] EXPLANATORY NOTE Que Conv[facility] Ramirez Comment: EXPLANATORY NOTE: The Pap is [...] information. HPV E6/E7 Not Detected Not Detected [facility] Comment: Methodology: Waste Removalist-Mediated Amplification This assay detects E6/E7 viral messenger RNA (mRNA) from 14 high-risk HPV types (16,18,31,33,35,39,45,51,52,56,58,59,66,68). Cervical sources are required for HPV testing. If a vaginal source from a patient who has had a total hysterectomy with removal of cervix was submitted, please contact the testing laboratory for alternative testing options. For additional information, please refer to http://education.Visualant/faq/BLK095q6 (This link if provided for information/ educational purposes only.) Test Performed at: [facility] [address] [place] [address] Torin GUZMAN Genital SWAB OF ENDOCERVIX / Unknown 05/17/2024 4:26 PM CDT 05/18/2024 3:48 AM CDT Kendrick Teague MD PATHOLOGY/CYTOLOGY ORDERABLE S Final Result Performing Organization Address City/State/[facility] Phone Number [facility] [phone] [facility] [address] [facility] [place] [address] from Last 3 Months or Most Recently Relevant to Health Maintenance Insurance [employer] [facility] [employer] [id number] RX [employer] RX Member Subscriber Plan / Payer (Ef fective 2023-Present) Name:Walt Huitron Relation to Subscriber:Self Name:Walt Huitron Subscriber ID:Not on file Payer ID:Not on file Group ID:[id number] Type:RX Commercial Address: [address] [employer] PLANS (INTERNAL) [facility] Care Teams Cloth Folder Machine Relationship Specialty Start Date End Date Masoud Hayes MD PCP - General Internal Medicine 03/08/12
--- OUTSIDE RECORDS SUMMARY | 2025-06-25 19:38 | XMS_ITS | Encounter Summary ---
Author Organization [facility] Address [address] [place] [address] Phone Care Team Providers Care Project Assistant Name Role Phone Kishor Saleh MD Primary Care Provider [phone] Ann Serrano MD Unavailable [phone] No, Physician Primary Care Provider [phone] Kishor Saelh MD Primary Care Provider [phone] Lynn Rodriguez MD Primary Care Provider Encounter Details Date Type Department Care Team (Late st Contact Info) Description 09/30/2017 Orders Only [facility] ProviderStephenie MD [address] [place] [address] Social History Tobacco Use Types Packs/Day Years Used Date Smoking Tobacco: Never Smokeless Tobacco: Never Alcohol Use Standard Drinks/Week Comments No 0 (1 standard drink = 0.6 oz pur e alcohol) Comments Unknown Sex and Gender Information Value Date Recorded Sex Assigned at Not on file Legal Sex Female 11:54 PM CAPACITY PLANNING ENGINEER Gender Identity Female 09/19/2020 8:37 AM CAPACITY PLANNING ENGINEER Sexual Orientation Straight 09/19/2020 8: 37 AM CAPACITY PLANNING ENGINEER documented as of this encounter Plan of Treatment Not on file documented as of this encounter Procedures Procedure Name Priority Date/Time Associated Diagnosis Comments DISCHARGE LABORATORY CUMULATIVE REPORT 09/30/2017 12:00 AM CAPACITY PLANNING ENGINEER documented in this encounter Results * DISCHARGE LABORATORY CUMULATIVE REPORT (09/30/2017 12:00 AM CAPACITY PLANNING ENGINEER) Narrative 09/30/2017 12:00 AM CAPACITY PLANNING ENGINEER Ordered by an unspecified provider. us Historical Provider LAB BLOOD ORDERABLES Flora l Result documented in this encounter Visit Diagnoses Not on filedocumented in this encounter Additional Health Concerns Infection Onset Date Last Indicated Resolved Time COVID: Suspected 08/13/2022 08/13/2022 08/13/2022 1:16 PM CAPACITY PLANNING ENGINEER COVID: Suspected 11/07/2024 11/07/2024 11/07/2024 2:20 PM CDT COVID: Suspected 03/13/2025 03/13/2025 03/13/2025 3:44 PM CDT documented as of this encounter Care Teams Project Assistant Relationship Specialty Start Date End Date Kishor Saleh MD PCP - General 09/28/08 11/16/23 No, Physician PCP - General 11/17/23 12/28/23 Kishor Saleh MD [address] [facility] [address] [place] [address] PCP - General Internal Medicine 12/29/23 04/05/24 [place] [address] [facility] [address] [place] [address] PCP - General Internal Medicine 04/06/24 Ann Serrano MD Referring Physician Endocrinology Diabetes & Metabolism 06/08/20 documented as of this encounter
--- OUTSIDE RECORDS SUMMARY | 2025-06-25 19:38 | XMS_ITS | Clinical Summary ---
Author Organization [facility] Address [address] [place] [address] Care Team Providers Care Practice Professional Name Role Phone Kishor Saleh MD Primary Care Provider Source Comments [facility],non-owned Affiliates and Associated Physician Practices is amultiple site organization consisting of ambulatory clinics and hospital sitesin [place], [place], [place] and [place]. This disclosure is being madepursuant to the Care Everywhere program and may not contain all information available regarding this patient. Last updated 18.[facility] Allergies Active Allergy Reactions Criticality Noted Date [...] fluticasone propionate (Flonase) 50 MCG/ACT nasal spray [place] 2 (two) sprays into each nostril once [...] vitamin D, ergocalciferol , (Drisdol) 1.25 MG (08251 UT) capsule Take 1 (one) capsule by [...] any time in the past 12 [facility], were you homeless or living in a nursing home (including now)? No 08/15/2024 Comments Unknown Sex and Gender Information Value Date Recorded Sex Assigned at Not on file Legal Sex Female 4:50 AM CASING SPLITTER Gender Identity Not on file Sexual Orientation Not on file Last Filed Vital Signs Vital Sign Reading Time Taken Comments Blood Pressure 154/92 08/18/2024 12:25 PM CASING SPLITTER Pulse 102 08/18/2024 12:25 PM CASING SPLITTER Temperature 36.7 C (98.1 F) 08/18/2024 12:25 PM CASING SPLITTER Respiratory Rate 23 08/18/2024 12:2 5 PM CASING SPLITTER Oxygen Saturation 90% 08/18/2024 12: 25 PM CASING SPLITTER Inhaled Oxygen Concentration 21% 08/18/2024 2 :00 PM CASING SPLITTER Weight 132.6 kg (292 lb 4.8 oz) 08/18/2024 4:00 AM CASING SPLITTER Height 167.6 cm (5' 6) 08/13/2024 5:14 PM CASING SPLITTER Body Mass Index 47.18 08/13/2024 5:14 PM CASING SPLITTER Plan of Treatment Health Maintenance Due Date [...] (CALCIUM TOTAL) AM Draw 08/17/2024 4:16 AM CASING SPLITTER HEMOGLOBIN A1C Routine 08/14/2024 3:27 AM CASING SPLITTER from Last 3 Months or Most Recently Relevant to Health Maintenance Results * (ABNORMAL) BASIC METABOLIC PANEL (CALCIUM TOTAL) (08/17/2024 4:16 AM CASING SPLITTER) Glucose 139(H) 70 - 99 mg/dL 08/17/2024 4:53 AM CASING SPLITTER [facility] Sodium 140 136 - 145 mmol/L 08/17/2024 4:53 AM CASING SPLITTER [facility] Potassium 3.5 3.5 - 5.1 mmol/L 08/17/2024 4:53 AM CASING SPLITTER [facility] Chloride 108(H) 98 - 107 mmol/L 08/17/2024 4:53 AM CASING SPLITTER [facility] CO2 24 22 - 29 mmol/L 08/17/2024 4:53 AM CASING SPLITTER [facility] Calcium 8.9 8.4 - 10.4 mg/dL 08/17/2024 4:53 AM CASING SPLITTER [facility] Anion Gap 8 6 - 16 mmol/L 08/17/2024 4:53 AM [facility] BUN 15 5.3 - 18.7 mg/dL 08/17/2024 4:53 AM [facility] Creatinine 0.65 0.57 - 1.11 mg/dL 08/17/2024 4:53 AM [facility] eGFR by CKD-EPI >90 >=90 mL/min/1.7 3 m2 08/17/2024 4:53 AM [facility] Blood BLOOD SPECIMEN / Unknown Venipuncture / Unknown 08/17/2024 4:16 AM CASING SPLITTER 08/17/2024 4:30 AM [facility] Alexus Ramirez MD LAB - CHEMISTRY ORDERABLES Final Result [facility] [address] [place] [address] * (ABNORMAL) HEMOGLOBIN A1C (08/14/2024 3:27 AM [facility]) Hemoglobin A1c 10.1(H) <5.7 % 08/14/2024 3:48 AM [facility] Estimated Average Glucose 243 mg/dL 08/14/2024 3:48 AM [facility] Blood BLOOD SPECIMEN / Unknown Venipuncture / Unknown 08/14/2024 3:27 AM CASING SPLITTER 08/14/2024 3:37 AM [facility] Narrative [facility] - 08/14/2024 3:48 AM [facility] HbA1c Interpretation: Normal: < 5.7% [...] MD LAB - CHEMISTRY ORDERABLES Final Result [facility] [address] [place] [address] from Last 3 Months or Most Recently Relevant to Health Maintenance Insurance [facility] [employer] Advance Directives * Full Code (Latest Code Status on File) Date Activated Date Inactivated Comments 08/13/2024 3:54 PM 08/18/2024 6:24 PM Care Teams Practice Professional Relationship Specialty Start Date End Date Kishor Saleh MD [address] [address] [address] [place] [address] PCP - General Internal Medicine 07/31/23
--- NOTE | 2025-06-25 20:15 | ECG_ITS ---
Test Date: 2025-06-25 21:22:42 Measurements Intervals [place] Rate: 130 P: 30 FL: 120 QRS: -2 QRSD: 82 T: 78 QT: 280 QTc: 412 Interpretive Statements SINUS TACHYCARDIA OTHERWISE NORMAL ECG Compared to ECG 12/14/2024 23:46:04 HEART RATE INCREASED Electronically Signed On 06-26-2025 07:22:16 SENIOR LEAD PROJECT MANAGER by Kendrick Cuello M.D.
--- NOTE | 2025-06-25 20:19 | ED.WEAKNESS ---
HPI - Weakness General Chief complaint: Weakness Stated complaint: weakness Time Seen by Provider: 06/25/25 20:06 History of Present Illness HPI Narrative: 50-year-old female with history of type 2 diabetes, recurrent cellulitis, possible vasculitis /unknown autoimmune disease on chronic 50 mg prednisone daily. Patient presents to the emergency department with generalized malaise and generalized weakness with elevated heart rate and worsening pain and swelling in her extremities. She was recently hospitalized for similar and was treated for cellulitis and new found DVT in her extremities. She was discharged with antibiotics and Eliquis that she has been taking without difficulty. Yesterday she started beating having symptoms that worsened today. Denies any specific complaints such as headache, vision changes, chest pain, shortness a breath, abdominal pain. Does endorse some mild nauseousness. States her legs are more swollen and red. She does have weeping ulcerations of her both lower extremities worse on the right side but no purulent drainage noted. Of note patient also recently had an ENT visit for sinus issues secondary to a stuck pill that has resolved she denies any sinus drainage, purulent sinus drainage or any cough, sinus pressure or any headaches/ facial pain and states that has resolved. Related Data Home Medications ?Medication ?Instructions ?Recorded ?Confirmed ?Last Taken ?Type atorvastatin 20 mg tablet 40 mg PO HS 10/15/20 06/26/25 05/24/25 History insulin lispro-aabc 100 unit/mL 1 sliding scale dose subcut AC 05/25/23 06/26/25 05/24/25 History subcutaneous pen (Lyumjev KwikPen U-100 Insulin) tirzepatide 5 mg/0.5 mL 12.5 mg subcut WEEKLY 05/25/23 06/26/25 12/10/24 History subcutaneous pen injector (Mounjaro) venlafaxine 150 mg 150 mg PO QAM 05/25/23 06/26/25 05/24/25 History capsule,extended release 24 hr albuterol sulfate 2.5 mg/3 mL 2.5 mg inhalation DAILY PRN 08/10/23 06/26/25 05/24/25 History (0.083 %) solution for nebulization Shortness Of Breath cetirizine 10 mg tablet (All Day 10 mg PO DAILY 08/10/23 06/26/25 05/24/25 History Allergy (cetirizine)) ergocalciferol (vitamin D2) 50,000 unit PO .COMPLEX 08/10/23 06/26/25 05/24/25 History prednisone 20 mg tablet 50 mg PO DAILY@0800 08/10/23 06/26/25 05/24/25 History folic acid 1 mg tablet 1 mg PO DAILY 07/31/24 06/26/25 05/24/25 History hydroxychloroquine 200 mg tablet 200 mg PO BID 07/31/24 06/26/25 05/24/25 History insulin glargine 100 unit/mL (3 45 unit subcut BID 07/31/24 06/26/25 05/24/25 History mL) subcutaneous pen (Lantus Solostar U-100 Insulin) lisinopril 20 mg tablet 40 mg PO HS 07/31/24 06/26/25 05/24/25 History pantoprazole 40 mg tablet,delayed 40 mg PO HS 07/31/24 06/26/25 05/24/25 History release acetaminophen 500 mg tablet 1,000 mg PO BID 09/23/24 06/26/25 05/24/25 History famotidine 20 mg tablet (Acid 20 mg PO HS 09/23/24 06/26/25 05/24/25 History Controller) magnesium 200 mg tablet 400 mg PO HS 09/23/24 06/26/25 05/24/25 History albuterol sulfate 90 mcg/actuation 2 puff inhalation Q8H PRN 10/03/24 06/26/25 06/26/25 History aerosol inhaler shortness of breath or wheezing gabapentin 300 mg capsule 300 mg PO TID 02/27/25 06/26/25 05/24/25 History ascorbic acid (vitamin C) 1,000 mg 1,000 mg PO .Q12hr 05/24/25 06/26/25 05/24/25 History tablet buprenorphine HCl 150 mcg buccal 150 mcg buccal Q12H pain 05/24/25 06/26/25 Unknown History film ferrous sulfate 325 mg (65 mg 325 mg PO DAILY 05/24/25 06/26/25 05/24/25 History iron) tablet (iron) furosemide 40 mg tablet (Lasix) 40 mg PO DAILY 05/24/25 06/26/25 05/24/25 History glucosamine-chondroitin 1,500 mg PO DAILY 05/24/25 06/26/25 05/24/25 History omeprazole 40 mg capsule,delayed 40 mg PO DAILY 05/24/25 06/26/25 05/24/25 History release rituximab 10 mg/mL See Rx Instructions IV [id number] 05/24/25 06/26/25 Unknown History concentrate,intravenous (Rituxan) Held on 06/26/25. Instructions: .Provider Order budesonide-formoterol HFA 160 2 puff inhalation BID 06/26/25 06/26/25 Unknown History mcg-4.5 mcg/actuation aerosol inhaler (Breyna) cyclobenzaprine 10 mg tablet 10 mg PO HS 06/26/25 06/26/25 Unknown History potassium chloride 20 mEq 20 meq PO DAILY 06/26/25 06/26/25 Unknown History tablet,extended release(part/cryst) (Klor-Con M) sulfamethoxazole-trimethoprim PO EVERY OTHER DAY 06/26/25 Unknown History Allergies Allergy/AdvReac Type Severity Reaction Status Date / Time amoxicillin AdvReac Unknown Nausea and Verified 06/26/25 02:44 Vomiting glipizide AdvReac Unknown NAUSEA AND Verified 06/26/25 02:44 VOMITING hydrocodone AdvReac Unknown Nausea and Verified 06/26/25 02:44 Vomiting metformin AdvReac Unknown Nausea and Verified 06/26/25 02:44 Vomiting Review of Systems Review of Systems: as reviewed above in HPI All systems reviewed & are unremarkable except as noted in HPI and below PMFSH Past Medical History Medical History Immunocompromised Vasculitis Depression JEREMY on CPAP Hypertension Hypercholesterolemia Diabetes Surgical History Surgical History H/O arthroscopy H/O myomectomy Family History Family History Mother Diabetes mellitus Myocardial infarction Uterine cancer Father Cancer of blood vessel Sibling Diabetes mellitus Social History Social History Smoking status: Never smoker Second hand tobacco smoke exposure: Yes (not often) Alcohol intake: never Drinks per week: 1 Substance use: never Substance use type: does not use Do You Feel Safe in your Home?: Yes Lack of Transportation: No Lack of Food: Never True Current Housing: I Have Housing Concerned About Future Housing: No Difficulty Paying Gas/Electric Bills: No Difficulty Paying for Meds: No Currently Unemployed: No Education: High School Diploma/GED Difficulty w/ Childcare or Family Care: No Spiritual care concerns: No Exam Narrative: GENERAL: ill-appearing, awake and answering all questions appropriately, tachycardic. Appears edematous and puffy in the face and extremities. HEAD: [Normocephalic, atraumatic.] EYES: [PERRLA and EOMI.] ENT: Nares clear, no rhinorrhea or epistaxis. Mucous membranes moist. NECK: Supple. CHEST: [Clear to auscultation. No respiratory distress.] HEART: [Regular rate and rhythm]. No murmur heard. [Normal peripheral pulses.] ABDOMEN: [Soft, nondistended], [nontender], [No rigidity or guarding] EXTREMITIES: Normal range of motion. Pitting edema with blanching erythema and warmth bilaterally worse on the right lower extremity with ulcerations that are small without any purulent drainage but weeping serosanguineous drainage is noted. Left leg not as edematous or erythematous. SKIN: Warm, dry, no rash. NEURO: [No focal deficits]. Alert and oriented [x3.] PSYCH: [Normal mood and affect.] Course Vital Signs Vital signs: Vital Signs Temperature 36.6 C 06/25/25 19:42 Pulse Rate 120 H 06/25/25 19:42 Respiratory Rate 20 06/25/25 19:42 Blood Pressure 119/66 06/25/25 19:42 Pulse Oximetry 92 06/25/25 19:42 Oxygen Delivery Room Air 06/25/25 19:42 Temperature 36.6 C 06/25/25 19:42 Pulse Rate 122 H 06/26/25 00:02 Respiratory Rate 16 06/26/25 00:02 Blood Pressure 101/52 L 06/26/25 00:02 Pulse Oximetry 97 06/26/25 00:02 Oxygen Delivery Nasal Cannula 06/25/25 23:46 Oxygen Flow Rate 2 06/25/25 23:46 MDM - Weakness MDM Narrative Medical decision making narrative: 50-year-old female with history of type 2 diabetes, recurrent cellulitis, possible vasculitis /unknown autoimmune disease on chronic 50 mg prednisone daily. Patient presents to the emergency department with generalized malaise and generalized weakness with elevated heart rate and worsening pain and swelling in her extremities. She was recently hospitalized for similar and was treated for cellulitis and new found DVT in her extremities. She was discharged with antibiotics and Eliquis that she has been taking without difficulty. Yesterday she started beating having symptoms that worsened today. Denies any specific complaints such as headache, vision changes, chest pain, shortness a breath, abdominal pain. Does endorse some mild nauseousness. States her legs are more swollen and red. She does have weeping ulcerations of her both lower extremities worse on the right side but no purulent drainage noted. Of note patient also recently had an ENT visit for sinus issues secondary to a stuck pill that has resolved she denies any sinus drainage, purulent sinus drainage or any cough, sinus pressure or any headaches/ facial pain and states that has resolved. Pitting edema with blanching erythema and warmth bilaterally worse on the right lower extremity with ulcerations that are small without any purulent drainage but weeping serosanguineous drainage is noted. Left leg not as edematous or erythematous. patient does appear ill and has puffy extremities and facial features likely secondary to chronic steroids but also possibility of worsening infection/ cellulitis in her legs. She is tachycardic. Patient states he normally has elevated heart rates in the 100-110 range but not this high. Currently tachycardic in the 120s. Hypoxic 92% on room air. Afebrile. Normal blood pressure. Did recently have a DVT in her right leg and has been taking antibiotic and Eliquis at home without any improvement and now having worsening symptoms. Suspicion presently is for failed outpatient management of cellulitis versus persistent DVT verses sepsis from recent infection, pulmonary embolism given the hypoxia and tachycardia. CT angiography ordered, blood cultures and lactic acid septic workup ordered. Patient given judicious fluids resuscitation with 1 L fluid at time to see if she responds as she already does appear edematous but no history of heart failure. Started on clindamycin. patient re-evaluated actually having worsening heart rate oxygenation status currently 90% on room air, heart rate 127-130. Given oxygen supplemental with improvement to 96% 2 L nasal cannula. ABG obtained shows tachypnea and hypoxemia. No acidosis. CT angiography shows no PE or pulmonary process. No consolidations pleural effusions or pneumothorax. No pericardial effusion. Patient given additional fluids as her BNP is negative to try and correct her pulse and elevated lactic acid. Started on cefepime for broader coverage. Unclear exact source of patient's symptoms but could potentially be bacteremia from her leg swelling with cellulitis. Will require admission for further workup and continued care. Awaiting discussion with hospitalist. Dr. Hernández accepted pt to tele at this time. BP stable, on 3rd liter of fluid, ABX going. Medical Records Attestation: I reviewed the patient's medical records. Lab Data Attestation: I reviewed the patient's lab results. 06/25/25 20:56 06/25/25 20:55 Labs: Lab Results 06/25/25 06/25/25 06/25/25 Range/Units 20:55 20:55 20:56 WBC 11.0 H (4.5-10.0) K/mm3 RBC 4.21 (4.2-5.4) M/mm3 Hgb 12.4 (12.0-15.0) g/dL Hct 38.7 (37.0-47.0) % MCV 91.9 (80-100) fl MCH 29.5 (26-34) pg MCHC 32.0 (32-36) g/dl RDW 16.5 H (11.5-14.5) % Plt Count 299 (150-375) k/mm3 MPV 10.7 H (7.4-10.4) fl Immature Gran % (Auto) 1.3 H (0-0.5) % Neut % (Auto) 65.0 (45.5-73.1) % Lymph % (Auto) 21.6 (18.3-44.2) % [place]cl[place] % (Auto) 11.2 H (2.6-8.5) % Eos % (Auto) 0.4 (0-4.4) % Baso % (Auto) 0.5 (0.2-1.2) % Lymph # (Auto) 2.37 (0.9-3.2) K/mm3 [place]cl[place] # (Auto) 1.2 H (0.1-0.6) K/mm3 Eos # (Auto) 0.0 (0-0.3) K/mm3 Baso # (Auto) 0.1 (0.0-0.1) K/mm3 Abs Immat Gran (auto) 0.14 H (0.00-0.031) K/mm3 Absolute Neuts (auto) 7.1 H (1.3-6.7) K/mm3 Absolute Nucleated RBC 0.000 (0.0-0.012) K/mm3 Nucleated RBC % 0.0 (0.0-0.2) % PT 13.3 (11.1-14.7) Seconds INR 1.0 APTT 21.9 L (22.3-36.8) Seconds Methemoglobin (0-1.5) %THb Sodium 133 L (137-145) mmol/L Potassium 4.5 (3.4-5.0) mmol/L Chloride 98 (98-107) mmol/L Carbon Dioxide 28 (22-30) mmol/L Anion Gap 7 (4-12) mmol/L BUN 29 H (7-17) mg/dL Creatinine 1.08 H (0.7-1.0) mg/dL Estim Creat Clear Calc Not Reportable Estimated GFR 54 L (59 - ) Glucose 216 H (65-110) mg/dL Lactic Acid 2.3 H (0.7-2.0) mmol/L Calcium 9.0 (8.4-10.2) mg/dL Total Bilirubin 1.0 (0.2-1.3) mg/dL AST 33 (14-36) U/L ALT 79 H (6-35) U/L Alkaline Phosphatase 92 (38-126) U/L C-Reactive Protein 4.0 H (<1.0) mg/dL NT-Pro-B Natriuret Pep 93 Cancelled (19.9-100) pg/mL Total Protein 7.0 (6.3-8.2) g/dL Albumin 3.9 (3.5-5.1) g/dL Urine Color (Yellow) Urine Appearance (Clear) Urine pH (5.0-9.0) Ur Specific [place] (1.001-1.035) Urine Protein (Negative) mg/dL Urine Glucose (UA) (Negative) mg/dL Urine Ketones (Negative) mg/dL Ur Blood (Man) (Negative) Urine Nitrate (Negative) Urine Bilirubin (Negative) Urine Urobilinogen (<2.0) mg/dL Add Ur Microanalysis Leukocyte Esterase Rfl (Negative) JAYDEN/UL Urine RBC (0-2) /hpf Urine WBC (0-3) /hpf Ur Squamous Epith Cells (Few) /hpf Urine Bacteria /hpf Urine Casts Urine Mucus /lpf Influenza A (RT-PCR) (Negative) Influenza B (RT-PCR) (Negative) RSV (RT-PCR) (Negative) SARS-CoV-2 RNA (RT-PCR) (Negative) 06/25/25 06/25/25 06/25/25 Range/Units 21:08 21:23 23:30 WBC (4.5-10.0) K/mm3 RBC (4.2-5.4) M/mm3 Hgb (12.0-15.0) g/dL Hct (37.0-47.0) % MCV (80-100) fl MCH (26-34) pg MCHC (32-36) g/dl RDW (11.5-14.5) % Plt Count (150-375) k/mm3 MPV (7.4-10.4) fl Immature Gran % (Auto) (0-0.5) % Neut % (Auto) (45.5-73.1) % Lymph % (Auto) (18.3-44.2) % [place]cl[place] % (Auto) (2.6-8.5) % Eos % (Auto) (0-4.4) % Baso % (Auto) (0.2-1.2) % Lymph # (Auto) (0.9-3.2) K/mm3 [place]cl[place] # (Auto) (0.1-0.6) K/mm3 Eos # (Auto) (0-0.3) K/mm3 Baso # (Auto) (0.0-0.1) K/mm3 Abs Immat Gran (auto) (0.00-0.031) K/mm3 Absolute Neuts (auto) (1.3-6.7) K/mm3 Absolute Nucleated RBC (0.0-0.012) K/mm3 Nucleated RBC % (0.0-0.2) % PT (11.1-14.7) Seconds INR APTT (22.3-36.8) Seconds Methemoglobin (0-1.5) %THb Sodium (137-145) mmol/L Potassium (3.4-5.0) mmol/L Chloride (98-107) mmol/L Carbon Dioxide (22-30) mmol/L Anion Gap (4-12) mmol/L BUN (7-17) mg/dL Creatinine (0.7-1.0) mg/dL Estim Creat Clear Calc Estimated GFR (59 - ) Glucose (65-110) mg/dL Lactic Acid 2.6 H (0.7-2.0) mmol/L Calcium (8.4-10.2) mg/dL Total Bilirubin (0.2-1.3) mg/dL AST (14-36) U/L ALT (6-35) U/L Alkaline Phosphatase (38-126) U/L C-Reactive Protein (<1.0) mg/dL NT-Pro-B Natriuret Pep (19.9-100) pg/mL Total Protein (6.3-8.2) g/dL Albumin (3.5-5.1) g/dL Urine Color Dark yellow (Yellow) Urine Appearance Cloudy H (Clear) Urine pH 5.0 (5.0-9.0) Ur Specific [place] 1.024 (1.001-1.035) Urine Protein 1+ H (Negative) mg/dL Urine Glucose (UA) Trace H (Negative) mg/dL Urine Ketones 1+ H (Negative) mg/dL Ur Blood (Man) Negative (Negative) Urine Nitrate Negative (Negative) Urine Bilirubin 1+ H (Negative) Urine Urobilinogen 1.0 (<2.0) mg/dL Add Ur Microanalysis Reviewed Leukocyte Esterase Rfl Negative (Negative) JAYDEN/UL Urine RBC 11-20 H (0-2) /hpf Urine WBC 6-10 H (0-3) /hpf Ur Squamous Epith Cells Many H (Few) /hpf Urine Bacteria None seen /hpf Urine Casts 6-10 Urine Mucus Present /lpf Influenza A (RT-PCR) Negative (Negative) Influenza B (RT-PCR) Negative (Negative) RSV (RT-PCR) Negative (Negative) SARS-CoV-2 RNA (RT-PCR) Negative (Negative) 06/25/25 Range/Units 23:34 WBC (4.5-10.0) K/mm3 RBC (4.2-5.4) M/mm3 Hgb (12.0-15.0) g/dL Hct (37.0-47.0) % MCV (80-100) fl MCH (26-34) pg MCHC (32-36) g/dl RDW (11.5-14.5) % Plt Count (150-375) k/mm3 MPV (7.4-10.4) fl Immature Gran % (Auto) (0-0.5) % Neut % (Auto) (45.5-73.1) % Lymph % (Auto) (18.3-44.2) % [place]cl[place] % (Auto) (2.6-8.5) % Eos % (Auto) (0-4.4) % Baso % (Auto) (0.2-1.2) % Lymph # (Auto) (0.9-3.2) K/mm3 [place] # (Auto) (0.1-0.6) K/mm3 Eos # (Auto) (0-0.3) K/mm3 Baso # (Auto) (0.0-0.1) K/mm3 Abs Immat Gran (auto) (0.00-0.031) K/mm3 Absolute Neuts (auto) (1.3-6.7) K/mm3 Absolute Nucleated RBC (0.0-0.012) K/mm3 Nucleated RBC % (0.0-0.2) % PT (11.1-14.7) Seconds INR APTT (22.3-36.8) Seconds Methemoglobin 0.3 (0-1.5) %THb Sodium (137-145) mmol/L Potassium (3.4-5.0) mmol/L Chloride (98-107) mmol/L Carbon Dioxide (22-30) mmol/L Anion Gap (4-12) mmol/L BUN (7-17) mg/dL Creatinine (0.7-1.0) mg/dL Estim Creat Clear Calc Estimated GFR (59 - ) Glucose (65-110) mg/dL Lactic Acid (0.7-2.0) mmol/L Calcium (8.4-10.2) mg/dL Total Bilirubin (0.2-1.3) mg/dL AST (14-36) U/L ALT (6-35) U/L Alkaline Phosphatase (38-126) U/L C-Reactive Protein (<1.0) mg/dL NT-Pro-B Natriuret Pep (19.9-100) pg/mL Total Protein (6.3-8.2) g/dL Albumin (3.5-5.1) g/dL Urine Color (Yellow) Urine Appearance (Clear) Urine pH (5.0-9.0) Ur Specific [place] (1.001-1.035) Urine Protein (Negative) mg/dL Urine Glucose (UA) (Negative) mg/dL Urine Ketones (Negative) mg/dL Ur Blood (Man) (Negative) Urine Nitrate (Negative) Urine Bilirubin (Negative) Urine Urobilinogen (<2.0) mg/dL Add Ur Microanalysis Leukocyte Esterase Rfl (Negative) JAYDEN/UL Urine RBC (0-2) /hpf Urine WBC (0-3) /hpf Ur Squamous Epith Cells (Few) /hpf Urine Bacteria /hpf Urine Casts Urine Mucus /lpf Influenza A (RT-PCR) (Negative) Influenza B (RT-PCR) (Negative) RSV (RT-PCR) (Negative) SARS-CoV-2 RNA (RT-PCR) (Negative) ABG Data ABG results: 06/25/25 23:34 Puncture Site Right radial ABG pH 7.456 H ABG pCO2 33.7 L ABG pO2 78.7 L ABG PO2/FiO2 Ratio 3.28 ABG HCO3 23.2 ABG O2 Saturation 96.3 ABG O2 Content 16.4 ABG Base Excess -0.1 A-a Gradient 52.3 Oxyhemoglobin 94.7 Carboxyhemoglobin 1.1 Reduced Hemoglobin 3.9 Total Hemoglobin 12.3 O2 Delivery Device Nasal cannula O2 Liters/Min 2.0 FiO2 24 Attestation: I personally reviewed and interpreted this ABG as follows: Interpretation: tachypnea and resp alkalosis Imaging Data Attestation: I personally reviewed and interpreted this imaging study as follows: My impression: No PE Critical Care Time Critical Care Time Critical Care Time: Yes Total Critical Care Time: 35 Discharge Plan Discharge Clinical Impression: Sepsis, Acute hypoxic respiratory failure, Lactic acidosis, Cellulitis of right lower extremity Patient Disposition: Still a Patient Condition: Stable
[2025-06-25 21:06] LABS: Hematocrit 38.7 % (37.0-47.0); Hemoglobin 12.4 g/dL (12.0-15.0); Immature Granulocyte Percent A 1.3 % (0-0.5); Lymphocytes Absolute Auto 2.37 K/mm3 (0.9-3.2); Mean Corpuscular HGB Conc 32.0 g/dl (32-36); Mean Corpuscular Hemoglobin 29.5 pg (26-34); Mean Corpuscular Volume 91.9 fl (80-100); Nucleated Red Blood Cells Absolute Auto 0.000 K/mm3 (0.0-0.012); Nucleated Red Blood Cells Perc 0.0 % (0.0-0.2); Platelet Count Result 299 k/mm3 (150-375); Red Blood Count 4.21 M/mm3 (4.2-5.4); White Blood Count 11.0 K/mm3 (4.5-10.0)
[2025-06-25] MEDS: LACTATED RINGERS 1,000 ML 999 ML IV CONT ×2 (21:16→22:45)
[2025-06-25] MEDS: CLINDAMYCIN 900 MG/D5W 50 ML 900 MG/50 ML PIGGYBACK 50 MG IVPB (21:16)
[2025-06-25 21:19] LABS: INR 1.0; Prothrombin Time 13.3 Seconds (11.1-14.7)
[2025-06-25 21:20] LABS: Partial Thromboplastin Time 21.9 Seconds (22.3-36.8)
[2025-06-25 21:23] LABS: Alanine Aminotransferase 79 U/L (6-35); Albumin Level 3.9 g/dL (3.5-5.1); Alkaline Phosphatase 92 U/L (38-126); Anion Gap 7 mmol/L (4-12); Aspartate Amino Transferase 33 U/L (14-36); Bilirubin,Total 1.0 mg/dL (0.2-1.3); Blood Urea Nitrogen 29 mg/dL (7-17); CRP 4.0 mg/dL (<1.0); Calcium 9.0 mg/dL (8.4-10.2); Carbon Dioxide 28 mmol/L (22-30); Chloride 98 mmol/L (98-107); Estimated Glomerular Filt Rate 54; Glucose 216 mg/dL (65-110); Potassium 4.5 mmol/L (3.4-5.0); Sodium 133 mmol/L (137-145); Total Protein 7.0 g/dL (6.3-8.2)
[2025-06-25 21:29] LABS: NT Pro B Type Natriuretic Pept 93 pg/mL (19.9-100)
[2025-06-25 21:48] LABS: Add Urine Microscopic? YES; Appearance Urine Cloudy (Clear); Glucose Urine UA Trace mg/dL (Negative); Leukocyte Esterase Ur Negative LEU/UL (Negative); Need Manual Microscopic Reviewed; Nitrate Urine Negative (Negative); Specific Grav Ur 1.024 (1.001-1.035)
[2025-06-25 21:49] LABS: Influenza A QL RT-PCR Negative (Negative); Influenza B QL RT-PCR Negative (Negative); RSV RNA, RT-PCR Negative (Negative); SARS-CoV-2 RNA PCR Negative (Negative)
[2025-06-25] MEDS: CEFEPIME 2 GM in SODIUM CHLORIDE 0.9% IV 50 ML 100 ML IVPB (23:25)
[2025-06-25 23:44] LABS: Alveolar/Arterial O2 Gradient 52.3 mmHg; Carboxyhemoglobin 1.1 % THb (0-2.0); Fractional Inspired Oxygen 24 %; HCO3 ABG 23.2 mEq/l (22.0-26.0); Methemoglobin ABG 0.3 %THb (0-1.5); Oxygen Content ABG 16.4 %vol (16.0-22.0); Oxygen Saturation ABG 96.3 % (95.0-100.0); PCO2 ABG 33.7 mmHg (35.0-45.0); PO2 ABG 78.7 mmHg (80.0-100.0); PO2 FiO2 Ratio Arterial Blood 3.28 %; Reduced Hemoglobin 3.9 %THb (0-5.0)
[2025-06-25 23:45] LABS: Liters per Minute 2.0 LPM; Modified Allen's Test Pass; Site Drawn RIGHT RADIAL
[2025-06-25] MEDS: HYDROmorphone HCL INJ (*CRX) 1 MG/ML SYR IV PUSH (23:55)
[2025-06-26] VITALS (14 sets, daily range): BP systolic 101–135; BP diastolic 52–82; PULSE 82–124; RESP 15–18; TEMP 36.2–37.2; O2SAT 93–100; BMI 52.5
[2025-06-26] MEDS: LACTATED RINGERS 1,000 ML 999 ML IV CONT (00:08)
[2025-06-26] MEDS: LACTATED RINGERS 1,000 ML 125 ML IV CONT ×2 (00:52→09:21)
--- NOTE | 2025-06-26 01:57 | WPCEDHO ---
ED Hand Off Checklist All vitals saved:yes IV Site documented:yes All med administrations documented:yes Triage Note Triage Note Pt presents to ED c/o generalized 06/25/25 19:42 weakness, numbness and tingling of both hands and feet, onset yesterday. Pt states everything hurts 6/10 aching pain, denies fever. Pt lower extremities appear red, and swollen. Allergies amoxicillin Adverse Reaction (Unknown, Verified 06/25/25 19:37) Nausea and Vomiting Patient received Unasyn/Vancomycin in May 2023 glipizide Adverse Reaction (Unknown, Verified 06/25/25 19:37) NAUSEA AND VOMITING hydrocodone Adverse Reaction (Unknown, Verified 06/25/25 19:37) Nausea and Vomiting NAUSEA AND VOMITING metformin Adverse Reaction (Unknown, Verified 06/25/25 19:37) Nausea and Vomiting Family History (Last Reviewed 06/25/25 @ 20:22 by Reynaldo Bowen MD) Mother Diabetes mellitus Myocardial infarction Uterine cancer Father Cancer of blood vessel Sibling Diabetes mellitus Active Medications including assessments/comments Lactated Ringer's (Lr - Lactated Ringers Iv) 1,000 mls @ 125 mls/hr IV CONT .Q8H ZEE Last Admin: 06/26/25 00:52 Dose: 125 mls/hr Documented By: HAIM Infusion/Titration Document 06/26/25 00:52 HAIM (Rec: 06/26/25 00:52 HAIM [id number]) Intake IV Site Peripheral Access Left Antecubital Container Volume 1,000 Waste Amount 0 Dosing Infusion Rate 125 Cumulative Dose Not Applicable Increase/Decrease Started Elapsed Time Elapsed Time ( 0m minutes) Administered/Completed Medications Discontinued Medications Hydromorphone HCl (Hydromorphone Hcl Inj (*Crx) 1 Mg/Ml Syr) 1 mg IV PUSH ONCE STA Stop: 06/25/25 23:32 Last Admin: 06/25/25 23:55 Dose: 1 mg Documented By: HAIM Lactated Ringer's (Lr - Lactated Ringers Iv) 1,000 mls @ 999 mls/hr IV CONT .Q1H1M STA Stop: 06/25/25 21:15 Last Infusion: 06/25/25 22:43 Dose: Infused Documented By: Admin: 06/25/25 21:16 Dose: 999 mls/hr Documented By: HAIM Clindamycin Phosphate (Cleocin 900 Mg/D5w 50 Ml) 900 mg in 50 mls @ 50 mls/hr IVPB ONCE ONE Stop: 06/25/25 21:16 Last Infusion: 06/25/25 22:19 Dose: Infused Documented By: Admin: 06/25/25 21:16 Dose: 50 mls/hr Documented By: HAIM Lactated Ringer's (Lr - Lactated Ringers Iv) 1,000 mls @ 999 mls/hr IV CONT .Q1H1M STA Stop: 06/25/25 23:38 Last Infusion: 06/26/25 00:05 Dose: Infused Documented By: Admin: 06/25/25 22:45 Dose: 999 mls/hr Documented By: HAIM Cefepime HCl 2 gm/ Sodium (Chloride) 50 mls @ 100 mls/hr IVPB ONCE STA Stop: 06/25/25 23:41 Last Infusion: 06/26/25 00:05 Dose: Infused Documented By: Admin: 06/25/25 23:25 Dose: 100 mls/hr Documented By: HAIM Lactated Ringer's (Lr - Lactated Ringers Iv) 1,000 mls @ 999 mls/hr IV CONT .Q1H1M STA Stop: 06/26/25 00:59 Last Infusion: 06/26/25 01:07 Dose: Infused Documented By: Admin: 06/26/25 00:08 Dose: 999 mls/hr Documented By: HAIM Interventions/Assessments Cardiac Monitoring Start: 06/25/25 19:42 Freq: Status: Active Protocol: Document 06/25/25 20:00 EMW (Rec: 06/25/25 20:00 EM [id number]) Engine Specialist Assessment Engine Specialist Yes Applied Pulse Rate (60-100) 121 H IV / Saline Lock, Insert Start: 06/25/25 19:42 Freq: Status: Active Protocol: Document 06/25/25 21:06 EMW (Rec: 06/25/25 21:06 EM [id number]) IV Assessment Peripheral Access Left Antecubital IV Catheter Access Initiated IV Insertion Date 06/25/25 IV Insertion Time 21:06 Catheter Gauge 18 IV Insertion 1 Attempts Ultrasound Used for No Placement IV Site Assessment WNL IV Care and WNL Maintenance PA: Cardiovascular Assessment Start: 06/25/25 19:42 Freq: Status: Active Protocol: Document 06/25/25 19:59 EMW (Rec: 06/25/25 20:00 EMW [id number]) Cardiovascular Assessment Cardiovascular Dizziness,Nausea Symptoms Skin Description Pallor PA: Neurological Assessment Start: 06/25/25 19:42 Freq: Status: Active Protocol: Document 06/25/25 19:59 EMW (Rec: 06/25/25 20:00 EMW [id number]) Neurological Assessment Level of Alert,Awake Consciousness Orientation Oriented to Person,Oriented to Place,Oriented to Time Neurological Dizziness,Weakness, General Symptoms Behavior Fatigued Memory Description Intact Ability to Maintain Unable to Assess Balance Last Vital Signs Temperature 97.8 F 06/25/25 19:42 Pulse Rate 122 H 06/26/25 00:02 Respiratory Rate 16 06/26/25 00:02 Pulse Oximetry 97 06/26/25 00:02 Blood Pressure 101/52 L 06/26/25 00:02 Blood Pressure Mean 68 06/26/25 00:02 Blood Pressure Position Sitting 06/25/25 19:42 Oxygen Delivery Nasal Cannula 06/25/25 23:46 Oxygen Flow Rate 2 06/25/25 23:46 Last Result - Abnormals Only WBC 11.0 K/mm3 (4.5-10.0) H 06/25/25 20:56 RDW 16.5 % (11.5-14.5) H 06/25/25 20:56 MPV 10.7 fl (7.4-10.4) H 06/25/25 20:56 Immature Gran % (Auto) 1.3 % (0-0.5) H 06/25/25 20:56 [place] % (Auto) 11.2 % (2.6-8.5) H 06/25/25 20:56 [place] # (Auto) 1.2 K/mm3 (0.1-0.6) H 06/25/25 20:56 Abs Immat Gran (auto) 0.14 K/mm3 (0.00-0.031) H 06/25/25 20:56 Absolute Neuts (auto) 7.1 K/mm3 (1.3-6.7) H 06/25/25 20:56 APTT 21.9 Seconds (22.3-36.8) L 06/25/25 20:55 ABG pH 7.456 (7.350-7.450) H 06/25/25 23:34 ABG pCO2 33.7 mmHg (35.0-45.0) L 06/25/25 23:34 ABG pO2 78.7 mmHg (80.0-100.0) L 06/25/25 23:34 Sodium 133 mmol/L (137-145) L 06/25/25 20:55 BUN 29 mg/dL (7-17) H 06/25/25 20:55 Creatinine 1.08 mg/dL (0.7-1.0) H 06/25/25 20:55 Estimated GFR 54 (59-) L 06/25/25 20:55 Glucose 216 mg/dL (65-110) H 06/25/25 20:55 Lactic Acid 2.6 mmol/L (0.7-2.0) H 06/25/25 23:30 ALT 79 U/L (6-35) H 06/25/25 20:55 C-Reactive Protein 4.0 mg/dL (<1.0) H 06/25/25 20:55 Urine Appearance Cloudy (Clear) H 06/25/25 21:23 Urine Protein 1+ mg/dL (Negative) H 06/25/25 21:23 Urine Glucose (UA) Trace mg/dL (Negative) H 06/25/25 21:23 Urine Ketones 1+ mg/dL (Negative) H 06/25/25 21:23 Urine Bilirubin 1+ (Negative) H 06/25/25 21:23 Urine RBC 11-20 /hpf (0-2) H 06/25/25 21:23 Urine WBC 6-10 /hpf (0-3) H 06/25/25 21:23 Ur Squamous Epith Cells Many /hpf (Few) H 06/25/25 21:23 Most Recent Suicide Severity Rating Suicide Severity Rating NO RISK INDICATED 06/25/25 19:42
[2025-06-26] MEDS: ACETAMINOPHEN 325 MG TABLET 650 MG PO (02:55)
--- NOTE | 2025-06-26 07:02 | PM.IMHP ---
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 The patient does have a history of what sounds like chronic peripheral neuropathy with intermittent tingling and numbness in her hands and feet bilaterally in the stocking and glove distribution. But she reports that on the she went to a [employer] to cell some of her inventory and by they did a she was so fatigued and tired that she could barely function. When she woke up the next morning she was unable to get out of bed due to weakness and pain at. She reports the pain is aching in nature. She denies any fevers or chills. She states that she really cannot feel her hands or feet or her lower extremities. She does not have any acute change in sensation of her lower extremities. She was recently treated for cellulitis of her left lower extremity in May. Currently on arrival to the ER patient was noted to have markedly more erythema to the right lower extremity and was hot to touch compared to the left. She does have some open wounds to the right lower extremity but they are not actively draining and no evidence of crepitus. She reports that she does have some dyspnea on exertion but this not is not unusual for her. She has been compliant with her home CPAP. She reports that her physician tried to start a weaning process for her prednisone on 05/04/2025. She reports that she only got down to the 40 mg dose of prednisone and she just felt too bad and felt overwhelming for fatigue and decided to go back up to the 50 mg dose. She has not tried to wean back down on dosing. She was supposed to be weaning her dose of steroids by 5 mg on month. She was started on metoprolol 12.5 mg p.o. b.i.d. during recent hospitalization due to persistent sinus tachycardia. Review of Systems Review of Systems: 12 systems were reviewed with pertinent positives and negatives per HPI. Except as documented in the HPI, all other systems were reviewed and are negative. [facility] Past Medical History Medical History Hepatic steatosis Acute deep vein thrombosis of calf (05/24/25) Diastolic heart failure Echocardiogram August 2024 demonstrated EF of 60 65% grade 1 diastolic dysfunction normal right ventricular systolic function no pulmonary hypertension Immunocompromised Vasculitis Depression JEREMY on CPAP Hypertension Hypercholesterolemia Diabetes Surgical History Surgical History H/O arthroscopy H/O myomectomy Family History Family History Mother Diabetes mellitus Myocardial infarction Uterine cancer Father Cancer of blood vessel Sibling Diabetes mellitus Social History Social History (Updated 06/26/25 @ 07:39 by Marj Hernández DO) Social History: She lives at home with her of 21 years. They have 2 cats and 2 dogs. She is a lifelong nonsmoker and does not drink alcohol. She works at [employer] to try to support herself. Code status: Full code Surrogate decision maker: Smoking status: Never smoker Second hand tobacco smoke exposure: Yes (not often) Alcohol intake: never Drinks per week: 1 Substance use: never Substance use type: does not use Do You Feel Safe in your Home?: Yes Lack of Transportation: No Lack of Food: Never True Current Housing: I Have Housing Concerned About Future Housing: No Difficulty Paying Gas/Electric Bills: No Difficulty Paying for Meds: No Currently Unemployed: No Education: High School Diploma/GED Difficulty w/ Childcare or Family Care: No Spiritual care concerns: No Meds Home Medications and Allergies Home Medications ?Medication ?Instructions ?Recorded ?Confirmed ?Type atorvastatin 20 mg tablet 40 mg PO HS 10/15/20 06/26/25 History insulin lispro-aabc 100 unit/mL 1 sliding scale dose subcut AC 05/25/23 06/26/25 History subcutaneous pen (Lorenza Flood U-100 Insulin) tirzepatide 5 mg/0.5 mL 12.5 mg subcut WEEKLY 05/25/23 06/26/25 History subcutaneous pen injector (Stephan) venlafaxine 150 mg 150 mg PO QAM 05/25/23 06/26/25 History capsule,extended release 24 hr tramadol 50 mg tablet 50 mg PO Q4H PRN Severe pain #15 05/29/23 06/26/25 Rx tabs albuterol sulfate 2.5 mg/3 mL 2.5 mg inhalation DAILY PRN 08/10/23 06/26/25 History (0.083 %) solution for nebulization Shortness Of Breath cetirizine 10 mg tablet (All Day 10 mg PO DAILY 08/10/23 06/26/25 History Allergy (cetirizine)) ergocalciferol (vitamin D2) 50,000 unit PO .COMPLEX 08/10/23 06/26/25 History folic acid 1 mg tablet 1 mg PO DAILY 07/31/24 06/26/25 History hydroxychloroquine 200 mg tablet 200 mg PO BID 07/31/24 06/26/25 History insulin glargine 100 unit/mL (3 45 unit subcut BID 07/31/24 06/26/25 History mL) subcutaneous pen (Lantus Solostar U-100 Insulin) lisinopril 20 mg tablet 40 mg PO HS 07/31/24 06/26/25 History acetaminophen 500 mg tablet 1,000 mg PO BID 09/23/24 06/26/25 History famotidine 20 mg tablet (Acid 20 mg PO HS 09/23/24 06/26/25 History Controller) magnesium 200 mg tablet 400 mg PO HS 09/23/24 06/26/25 History albuterol sulfate 90 mcg/actuation 2 puff inhalation Q8H PRN 10/03/24 06/26/25 History aerosol inhaler shortness of breath or wheezing metoprolol tartrate 25 mg tablet 12.5 mg (1/2 x 25 mg) PO BID 30 12/17/24 06/26/25 Rx days #30 tabs gabapentin 300 mg capsule 300 mg PO TID 02/27/25 06/26/25 History ascorbic acid (vitamin C) 1,000 mg 1,000 mg PO .Q12hr 05/24/25 06/26/25 History tablet buprenorphine HCl 150 mcg buccal 150 mcg buccal Q12H pain 05/24/25 06/26/25 History film ferrous sulfate 325 mg (65 mg 325 mg PO DAILY 05/24/25 06/26/25 History iron) tablet (iron) furosemide 40 mg tablet (Lasix) 40 mg PO DAILY 05/24/25 06/26/25 History glucosamine-chondroitin 1,500 mg PO DAILY 05/24/25 06/26/25 History omeprazole 40 mg capsule,delayed 40 mg PO DAILY 05/24/25 06/26/25 History release rituximab 10 mg/mL See Rx Instructions IV [id number] 05/24/25 06/26/25 History concentrate,intravenous (Rituxan) Held on 06/26/25. Instructions: .Provider Order apixaban 5 mg tablet (Eliquis) 5 mg PO Q12HR #60 tabs 05/27/25 06/26/25 Rx budesonide-formoterol HFA 160 2 puff inhalation BID 06/26/25 06/26/25 History mcg-4.5 mcg/actuation aerosol inhaler (Breyna) cyclobenzaprine 10 mg tablet 10 mg PO HS 06/26/25 06/26/25 History potassium chloride 20 mEq 20 meq PO DAILY 06/26/25 06/26/25 History tablet,extended release(part/cryst) (Klor-Con M) prednisone 10 mg tablet 35 mg PO DAILY@0800 06/26/25 06/26/25 History sulfamethoxazole-trimethoprim PO EVERY OTHER DAY 06/26/25 History Allergies Allergy/AdvReac Type Severity Reaction Status Date / Time amoxicillin AdvReac Unknown Nausea and Verified 06/26/25 02:44 Vomiting glipizide AdvReac Unknown NAUSEA AND Verified 06/26/25 02:44 VOMITING hydrocodone AdvReac Unknown Nausea and Verified 06/26/25 02:44 Vomiting metformin AdvReac Unknown Nausea and Verified 06/26/25 02:44 Vomiting Vital Signs Vital Signs - 24 hr 06/25/25 19:42 06/25/25 19:49 06/25/25 19:50 Temperature 97.8 F Pulse Rate 120 H 122 H 123 H Respiratory Rate 20 17 18 Blood Pressure 119/66 124/75 Pulse Oximetry 92 96 Oxygen Delivery Room Air Oxygen Flow Rate 06/25/25 20:00 06/25/25 20:00 06/25/25 20:16 Temperature Pulse Rate 121 H 120 H 121 H Respiratory Rate 17 16 Blood Pressure Pulse Oximetry 100 94 Oxygen Delivery Oxygen Flow Rate 06/25/25 21:59 06/25/25 22:01 06/25/25 22:03 Temperature Pulse Rate 128 H 129 H 127 H Respiratory Rate 23 H 14 19 Blood Pressure 135/99 H 135/77 135/77 Pulse Oximetry 94 90 97 Oxygen Delivery Oxygen Flow Rate 06/25/25 22:07 06/25/25 22:07 06/25/25 22:28 Temperature Pulse Rate 127 H Respiratory Rate 23 H Blood Pressure Pulse Oximetry 90 98 100 Oxygen Delivery Room Air Nasal Cannula Oxygen Flow Rate 2 06/25/25 22:30 06/25/25 22:31 06/25/25 22:45 Temperature Pulse Rate 127 H 128 H 127 H Respiratory Rate 18 22 H 21 H Blood Pressure 109/65 Pulse Oximetry 100 100 100 Oxygen Delivery Oxygen Flow Rate 06/25/25 23:01 06/25/25 23:30 06/25/25 23:46 Temperature Pulse Rate 126 H 126 H Respiratory Rate 21 H 15 Blood Pressure 113/60 Pulse Oximetry 100 100 96 Oxygen Delivery Nasal Cannula Oxygen Flow Rate 2 06/26/25 00:01 06/26/25 00:02 06/26/25 04:00 Temperature Pulse Rate 124 H 122 H 117 H Respiratory Rate 15 16 Blood Pressure 134/82 101/52 L Pulse Oximetry 95 97 Oxygen Delivery Oxygen Flow Rate 06/26/25 06:00 Temperature 99.0 F Pulse Rate 118 H Respiratory Rate 16 Blood Pressure 102/54 L Pulse Oximetry 95 Oxygen Delivery Oxygen Flow Rate Exam Narrative: Weight 147.7 kg BMI 52.6 Const: Other: Chronically ill-appearing, morbidly obese, appears older than stated age HENMT: Other: Mucous membranes are moist, no oral pharyngeal erythema, crowded posterior oropharynx, nasal CPAP in place Eyes: Other: Pupils are equal and reactive, no scleral icterus, no conjunctival pallor Neck: Other: Large neck circumference, short neck, no JVD Resp: Other: Clear to auscultation bilaterally, no increased work of breathing, no tachypnea Cardio: Other: Sinus tachycardia, 2+ bilateral radial pedal pulses, no murmur GI: Other: Soft, nontender, normoactive bowel sounds Skin: Other: Small scratches on her arms consistent with her history of new kidneys in her home, chronic circumferential erythema to the left lower extremity with no increased warmth or drainage, at right lower extremity has 3/4 of a leg in circumference that is markedly more erythematous and warm compared to the left with several small shallow ulcerations the largest of which isn't on the anterior medial portion of the right lower extremity but ulcer base appears clean and dry, and patient's feet are dirty but no open wounds to the feet or toes Neuro: Other: Alert oriented, speech is clear, no facial asymmetry, no localizing neurologic deficits noted during conversation, 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 Extrem: Other: Chronic venous stasis changes of bilateral lower extremities with increased warmth and erythema right lower extremity as discussed above, otherwise moves all extremities equally exam somewhat limited due to patient's body habitus Psych: Other: Mildly anxious but otherwise pleasant and cooperative H&P: Results Labs Labs: Laboratory Tests 06/25/25 20:56 06/25/25 20:55 06/25/25 06/25/25 06/25/25 20:55 20:55 20:56 WBC 11.0 H RBC 4.21 Hgb 12.4 Hct 38.7 MCV 91.9 MCH 29.5 MCHC 32.0 RDW 16.5 H Plt Count 299 MPV 10.7 H Immature Gran % (Auto) 1.3 H Neut % (Auto) 65.0 Lymph % (Auto) 21.6 [place] % (Auto) 11.2 H Eos % (Auto) 0.4 Baso % (Auto) 0.5 Lymph # (Auto) 2.37 [place] # (Auto) 1.2 H Eos # (Auto) 0.0 Baso # (Auto) 0.1 Abs Immat Gran (auto) 0.14 H Absolute Neuts (auto) 7.1 H Absolute Nucleated RBC 0.000 Nucleated RBC % 0.0 PT 13.3 INR 1.0 APTT 21.9 L Puncture Site ABG pH ABG pCO2 ABG pO2 ABG PO2/FiO2 Ratio ABG HCO3 ABG O2 Saturation ABG O2 Content ABG Base Excess A-a Gradient Oxyhemoglobin Carboxyhemoglobin Methemoglobin Reduced Hemoglobin Total Hemoglobin O2 Delivery Device O2 Liters/Min FiO2 Sodium 133 L Potassium 4.5 Chloride 98 Carbon Dioxide 28 Anion Gap 7 BUN 29 H Creatinine 1.08 H Estim Creat Clear Calc Not Reportable Estimated GFR 54 L Glucose 216 H Lactic Acid 2.3 H Calcium 9.0 Total Bilirubin 1.0 AST 33 ALT 79 H Alkaline Phosphatase 92 C-Reactive Protein 4.0 H NT-Pro-B Natriuret Pep 93 Cancelled Total Protein 7.0 Albumin 3.9 Urine Color Urine Appearance Urine pH Ur Specific [place] Urine Protein Urine Glucose (UA) Urine Ketones Ur Blood (Man) Urine Nitrate Urine Bilirubin Urine Urobilinogen Add Ur Microanalysis Leukocyte Esterase Rfl Urine RBC Urine WBC Ur Squamous Epith Cells Urine Bacteria Urine Casts Urine Mucus Influenza A (RT-PCR) Influenza B (RT-PCR) RSV (RT-PCR) SARS-CoV-2 RNA (RT-PCR) 06/25/25 06/25/25 06/25/25 21:08 21:23 23:30 WBC RBC Hgb Hct MCV MCH MCHC RDW Plt Count MPV Immature Gran % (Auto) Neut % (Auto) Lymph % (Auto) [place] % (Auto) Eos % (Auto) Baso % (Auto) Lymph # (Auto) [place] # (Auto) Eos # (Auto) Baso # (Auto) Abs Immat Gran (auto) Absolute Neuts (auto) Absolute Nucleated RBC Nucleated RBC % PT INR APTT Puncture Site ABG pH ABG pCO2 ABG pO2 ABG PO2/FiO2 Ratio ABG HCO3 ABG O2 Saturation ABG O2 Content ABG Base Excess A-a Gradient Oxyhemoglobin Carboxyhemoglobin Methemoglobin Reduced Hemoglobin Total Hemoglobin O2 Delivery Device O2 Liters/Min FiO2 Sodium Potassium Chloride Carbon Dioxide Anion Gap BUN Creatinine Estim Creat Clear Calc Estimated GFR Glucose Lactic Acid 2.6 H Calcium Total Bilirubin AST ALT Alkaline Phosphatase C-Reactive Protein NT-Pro-B Natriuret Pep Total Protein Albumin Urine Color Dark yellow Urine Appearance Cloudy H Urine pH 5.0 Ur Specific [place] 1.024 Urine Protein 1+ H Urine Glucose (UA) Trace H Urine Ketones 1+ H Ur Blood (Man) Negative Urine Nitrate Negative Urine Bilirubin 1+ H Urine Urobilinogen 1.0 Add Ur Microanalysis Reviewed Leukocyte Esterase Rfl Negative Urine RBC 11-20 H Urine WBC 6-10 H Ur Squamous Epith Cells Many H Urine Bacteria None seen Urine Casts 6-10 Urine Mucus Present Influenza A (RT-PCR) Negative Influenza B (RT-PCR) Negative RSV (RT-PCR) Negative SARS-CoV-2 RNA (RT-PCR) Negative 06/25/25 23:34 WBC RBC Hgb Hct MCV MCH MCHC RDW Plt Count MPV Immature Gran % (Auto) Neut % (Auto) Lymph % (Auto) [place] % (Auto) Eos % (Auto) Baso % (Auto) Lymph # (Auto) [place] # (Auto) Eos # (Auto) Baso # (Auto) Abs Immat Gran (auto) Absolute Neuts (auto) Absolute Nucleated RBC Nucleated RBC % PT INR APTT Puncture Site Right radial ABG pH 7.456 H ABG pCO2 33.7 L ABG pO2 78.7 L ABG PO2/FiO2 Ratio 3.28 ABG HCO3 23.2 ABG O2 Saturation 96.3 ABG O2 Content 16.4 ABG Base Excess -0.1 A-a Gradient 52.3 Oxyhemoglobin 94.7 Carboxyhemoglobin 1.1 Methemoglobin 0.3 Reduced Hemoglobin 3.9 Total Hemoglobin 12.3 O2 Delivery Device Nasal cannula O2 Liters/Min 2.0 FiO2 24 Sodium Potassium Chloride Carbon Dioxide Anion Gap BUN Creatinine Estim Creat Clear Calc Estimated GFR Glucose Lactic Acid Calcium Total Bilirubin AST ALT Alkaline Phosphatase C-Reactive Protein NT-Pro-B Natriuret Pep Total Protein Albumin Urine Color Urine Appearance Urine pH Ur Specific [place] Urine Protein Urine Glucose (UA) Urine Ketones Ur Blood (Man) Urine Nitrate Urine Bilirubin Urine Urobilinogen Add Ur Microanalysis Leukocyte Esterase Rfl Urine RBC Urine WBC Ur Squamous Epith Cells Urine Bacteria Urine Casts Urine Mucus Influenza A (RT-PCR) Influenza B (RT-PCR) RSV (RT-PCR) SARS-CoV-2 RNA (RT-PCR) Impressions Chest X-Ray 06/26/25 06:18 IMPRESSION: 1. No acute cardiopulmonary findings given portable technique. Chest CTA 06/26/25 06:20 IMPRESSION: 1. No PE or other acute cardiopulmonary findings. EKG:Test Date: 2025-06-25 21:22:42 Measurements Intervals [place] Rate: 130 P: 30 NH: 120 QRS: -2 QRSD: 82 T: 78 QT: 280 QTc: 412 Interpretive Statements SINUS TACHYCARDIA OTHERWISE NORMAL ECG Compared to ECG 12/14/2024 23:46:04 HEART RATE INCREASED Assessment and Plan Assessment and plan (1) Diabetes mellitus, insulin dependent (IDDM), uncontrolled: Status: Chronic (2) Sinus tachycardia: Code(s): R00.0 - Tachycardia, unspecified Status: Acute (3) Cellulitis: Qualifiers: Laterality: right Site of cellulitis: extremity Site of cellulitis of extremity: lower extremity Qualified Code(s): L03.115 - Cellulitis of right lower limb Code(s): L03.90 - Cellulitis, unspecified Status: Acute (4) 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 She also had mildly elevated lactic acid level and acute on chronic sinus tachycardia. Patient meets SIRS criteria. Patient was started on clindamycin but given the patient's persistent lactic acidosis have dry fluid administration and persistent tachycardia the ER rider added cefepime. Given that the patient's cellulitis in area of ulceration is concerning for venous stasis ulcer verses diabetic ulcer and the patient's immunocompromised state will broaden the patient's antibiotic coverage to cefepime Flagyl and vancomycin. Blood cultures have been obtained and are pending. Will repeat CBC in a.m.. 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 The patient's creatinine is elevated above baseline indicating some component of acute kidney injury and she does have some mild hyponatremia. This is likely due to hyperosmolar hyponatremia. The patient received 3 L of fluid in the ER. Will repeat electrolyte panel in a.m. and re-evaluate. Will hold Lasix. The I would like to hold off on giving the patient additional IV fluids given her history of diastolic dysfunction and chronic lower extremity edema. At the time my evaluation the patient's mucous membranes are moist in she appears relatively euvolemic. Given acute kidney injury will decrease the patient's lisinopril and hold Lasix. Will repeat electrolyte panel. Will adjust the patient's metoprolol dosing to 25 mg b.i.d. The Patient has chronic sinus tachycardia with heart rate initially increased from baseline but improved after IV fluid administration. Patient was recently started on metoprolol 12.5 mg b.i.d.. Will change the patient's metoprolol dosing to 25 mg p.o. b.i.d. and will decrease the patient's lisinopril so that hopefully we can have improved heart rate control without dropping the patient's blood pressure and reduce risk of worsening acute kidney injury. The patient is currently normotensive. A component of the patient's recurrent infections is due to her poorly controlled diabetes. Patient was mildly hyperglycemic on admission to the hospital. However given fact that she is likely to have decreased oral intake while hospitalized will decrease home insulin dosing by 20% and will place patient on moderate sliding scale insulin with Accu-Cheks a.c. HS and hypoglycemia protocol Will continue home CPAP. ER provider documented patient had acute hypoxic respiratory failure but patient's oxygen level never dropped below 90%. Will wean off oxygen I suspect a component of the patient's hypoxia was due to Dilaudid administration and the fact that the patient was somnolent and likely nodding off without her CPAP in the ER. CTA of the chest and chest x-ray demonstrated no acute cardiopulmonary process. Will resume the patient's home nebulizer treatments. Patient has been admitted as observation status. MEDICAL DECISION MAKING NARRATIVE -Spoke with the ED provider in detail regarding patient's evaluation, workup and management -Patient seen and examined at bedside -Collaborated with patient's nurse at the bedside in detail and addressed all concerns -Labs, electrolytes, radiology, investigations and test results personally reviewed and interpreted unless otherwise specified -ED/Consult/Nursing/Ancilliary notes on the chart reviewed and appreciated -Spoke with patient at bedside and diagnosis and plan of care was discussed. All questions answered. Quality VTE Prophylaxis VTE prophylaxis: pharmacologic ordered (Continue home Eliquis) Hospitalist [facility] Advance Care Plan I have confirmed that the patient's Advanced Care Plan is present, code status is documented, or surrogate decision maker is listed in patient medical record.: Yes Medication Reconciliation I have utilized all available resources to obtain, update and review the patients current medications (includes all prescriptions, OTC, herbals, cannabis, and nutritional supplements).: Yes
[2025-06-26] MEDS: FLUTICASONE/SALMETEROL 115-21 MCG INHALER 1 PUFF 2 PUFF INHALATION ×2 (07:12→19:48)
[2025-06-26 08:01] LABS: Hematocrit 33.2 % (37.0-47.0); Hemoglobin 10.6 g/dL (12.0-15.0); Immature Granulocyte Percent A 1.4 % (0-0.5); Lymphocytes Absolute Auto 2.43 K/mm3 (0.9-3.2); Mean Corpuscular HGB Conc 31.9 g/dl (32-36); Mean Corpuscular Hemoglobin 29.5 pg (26-34); Mean Corpuscular Volume 92.5 fl (80-100); Nucleated Red Blood Cells Absolute Auto 0.000 K/mm3 (0.0-0.012); Nucleated Red Blood Cells Perc 0.0 % (0.0-0.2); Platelet Count Result 260 k/mm3 (150-375); Red Blood Count 3.59 M/mm3 (4.2-5.4); White Blood Count 8.6 K/mm3 (4.5-10.0)
[2025-06-26 08:21] LABS: Alanine Aminotransferase 67 U/L (6-35); Albumin Level 3.4 g/dL (3.5-5.1); Alkaline Phosphatase 76 U/L (38-126); Anion Gap 5 mmol/L (4-12); Aspartate Amino Transferase 27 U/L (14-36); Bilirubin,Total 0.9 mg/dL (0.2-1.3); Blood Urea Nitrogen 26 mg/dL (7-17); Calcium 8.4 mg/dL (8.4-10.2); Carbon Dioxide 25 mmol/L (22-30); Chloride 100 mmol/L (98-107); Creatine Kinase 115 U/L (30-135); Estimated CRCL calculation 113 ml/min; Estimated Glomerular Filt Rate > 60; Glucose 161 mg/dL (65-110); Potassium 4.1 mmol/L (3.4-5.0); Sodium 130 mmol/L (137-145); Total Protein 6.1 g/dL (6.3-8.2)
[2025-06-26] MEDS: GABAPENTIN 300 MG CAPSULE PO ×3 (08:54→18:00)
[2025-06-26] MEDS: APIXABAN 5 MG TABLET PO ×2 (08:54→21:20)
[2025-06-26] MEDS: LORATADINE 10 MG TABLET PO (08:54)
[2025-06-26] MEDS: VENLAFAXINE HCL XR 75 MG CAP.ER.24H 150 MG PO (08:55)
[2025-06-26] MEDS: POTASSIUM CHLORIDE 20 MEQ ER TABLET PO (08:55)
[2025-06-26] MEDS: ACETAMINOPHEN 500 MG TABLET 1000 MG PO ×2 (08:56→21:19)
[2025-06-26] MEDS: FOLIC ACID 1 MG TABLET PO (08:56)
[2025-06-26] MEDS: PANTOPRAZOLE 40 MG TABLET PO ×2 (08:56→21:20)
[2025-06-26] MEDS: FERROUS SULFATE 325 MG TABLET PO (08:57)
[2025-06-26] MEDS: METOPROLOL TARTRATE 25 MG TABLET PO ×2 (08:59→21:19)
[2025-06-26] MEDS: metroNIDAZOLE 500 MG/ISO 100ML 500 MG/100 ML BAG 100 MG IVPB ×3 (09:04→21:19)
[2025-06-26] MEDS: ONDANSETRON INJ 4 MG/2 ML VIAL IV PUSH (09:11)
[2025-06-26] MEDS: traMADol HCL (*CRX) 50 MG TABLET PO (09:11)
[2025-06-26] MEDS: INSULIN GLARGINE (*BKC) 100 UNITS/ML 36 UNITS SUB-Q ×2 (09:22→21:24)
[2025-06-26] MEDS: HYDROXYCHLOROQUINE SULFATE 200 MG TABLET PO ×2 (11:02→21:20)
[2025-06-26] MEDS: VANCOMYCIN 1,500 MG/NS 500 ML BAG 250 MG IVPB (11:02)
[2025-06-26 11:50] LABS: BEDSIDEPREGUCG Negative (Negative)
[2025-06-26] MEDS: CEFEPIME 2 GM in SODIUM CHLORIDE 0.9% IV 50 ML 100 ML IVPB ×2 (12:02→21:18)
[2025-06-26] MEDS: INSULIN ASPART (*BKC) 100 UNITS/ML SUB-Q ×3 (12:28→21:22)
--- NOTE | 2025-06-26 16:03 | P.PNIM_ITS ---
Progress Note: A&P Assessment and Plan (1) Sepsis: Code(s): A41.9 - Sepsis, unspecified organism Status: Acute Assessment and Plan: SIRS present on admission with sinus tachycardia, elevated WBC and lactic acid osis. Probable sepsis with source being cellulitis. Chest CTA showing no PE or other acute cardiopulmonary findings. UA was cloudy with negative LE/N, 6-10 WBC and many squamous cells. Did not refl ex to UCx BCx (06/25): pending Started on Flagyl/Cefepime/Vanc Exposed to kittens - consider bartonella. Prednisone continued. Clinically stable but consider stress dose steroids if condition worsens. (2) Cellulitis: Qualifiers: Site of cellulitis: extremity Site of cellulitis of extremity: lower extremity Laterality: right Qualified Code(s): L03.115 - Cellulitis of right lower limb Code(s): L03.90 - Cellulitis, unspecified Status: Acute Assessment and Plan: As above (3) Acute kidney injury: Code(s): N17.9 - Acute kidney failure, unspecified Status: Acute Assessment and Plan: Mild elevation of admission Cr to 1.08 but normal now with eGFR>60 and CrCl 113 Follow (4) Diabetes mellitus, insulin dependent (IDDM), uncontrolled: Status: Chronic Assessment and Plan: The patient's blood glucose was reviewed on 06/26 Glucose elevated norma dmission. Continue AccuCheks covering with sliding scale. Hypoglycemia protocol available as needed. Continue high dose Lantus at 20% reduction in home dose. (5) Hyperosmolar hyponatremia: Code(s): E87.0 - Hyperosmolality and hypernatremia; E87.1 - Hypo-osmolality and hyponatremia Status: Acute Assessment and Plan: Sodium 133 on admission. The patient received 3 L of fluid in the ER. Baseline sodium low 130 range. Lasix held. IV fluids started Follow (6) Autoimmune disease: Code(s): M35.9 - Systemic involvement of connective tissue, unspecified Status: Chronic Assessment and Plan: Patient has a known autoimmune disorder being followed by Rheumatology. Hydroxychloroquine resumed. Also resumed on chronic prednisone. Follow (7) JEREMY on CPAP: Code(s): G47.33 - Obstructive sleep apnea (adult) (pediatric) Status: Chronic Assessment and Plan: ABG noted. Resume CPAP at night and with naps. Plan DVT prophylaxis -Eliquis Code status -full Subjective Date/time seen: 06/26/25 16:03 Interval history: 50yo female with morbid obesity, JEREMY, possible vasculitis versus nonspecified autoimmune process on chronic high-dose steroids since May 2023, uncontrolled DM treated with insulin therapy, chronic venous stasis dermatitis and recurrent cellulitis who presented to the ER with generalized weakness and generalized pain everywhere. Patient was feeling dizzy and unsteady with pain 'everywhere' and without a specific location worse they others. No fevers. She wears O2 as needed. Exam Narrative: AF 98.4 112/73 97 18 93% ra Gen - obese female with cushinoid features in NARD Chest - CTA bilaterally, nml RR CV - RRR S1/S2; Tele showing sinus tachycardia at times Abd - Soft, obese, NT, +BS Ext - diffusely edematous Neuro - Alert and oriented. Nonfocal exam. Psych - Nml mood and affect Skin - warm. chronic venous stasis skin changes bilateral LE with RLE more erythematous and warm to touch. Multiple linear scratches noted from patient's cat Objective Data Vital Signs Vital Signs: Vital Signs - 24 hr 06/25/25 19:42 06/25/25 19:49 06/25/25 19:50 Temperature 97.8 F Pulse Rate 120 H 122 H 123 H Respiratory Rate 20 17 18 Blood Pressure 119/66 124/75 Pulse Oximetry 92 96 Oxygen Delivery Room Air Oxygen Flow Rate Fraction of Inspired Oxygen 06/25/25 20:00 06/25/25 20:00 06/25/25 20:16 Temperature Pulse Rate 121 H 120 H 121 H Respiratory Rate 17 16 Blood Pressure Pulse Oximetry 100 94 Oxygen Delivery Oxygen Flow Rate Fraction of Inspired Oxygen 06/25/25 21:59 06/25/25 22:01 06/25/25 22:03 Temperature Pulse Rate 128 H 129 H 127 H Respiratory Rate 23 H 14 19 Blood Pressure 135/99 H 135/77 135/77 Pulse Oximetry 94 90 97 Oxygen Delivery Oxygen Flow Rate Fraction of Inspired Oxygen 06/25/25 22:07 06/25/25 22:07 06/25/25 22:28 Temperature Pulse Rate 127 H Respiratory Rate 23 H Blood Pressure Pulse Oximetry 90 98 100 Oxygen Delivery Room Air Nasal Cannula Oxygen Flow Rate 2 Fraction of Inspired Oxygen 06/25/25 22:30 06/25/25 22:31 06/25/25 22:45 Temperature Pulse Rate 127 H 128 H 127 H Respiratory Rate 18 22 H 21 H Blood Pressure 109/65 Pulse Oximetry 100 100 100 Oxygen Delivery Oxygen Flow Rate Fraction of Inspired Oxygen 06/25/25 23:01 06/25/25 23:30 06/25/25 23:46 Temperature Pulse Rate 126 H 126 H Respiratory Rate 21 H 15 Blood Pressure 113/60 Pulse Oximetry 100 100 96 Oxygen Delivery Nasal Cannula Oxygen Flow Rate 2 Fraction of Inspired Oxygen 06/26/25 00:01 06/26/25 00:02 06/26/25 04:00 Temperature Pulse Rate 124 H 122 H 117 H Respiratory Rate 15 16 Blood Pressure 134/82 101/52 L Pulse Oximetry 95 97 Oxygen Delivery Oxygen Flow Rate Fraction of Inspired Oxygen 06/26/25 06:00 06/26/25 07:50 06/26/25 08:59 Temperature 99.0 F Pulse Rate 118 H 82 118 H Respiratory Rate 16 16 Blood Pressure 102/54 L Pulse Oximetry 95 95 Oxygen Delivery Room Air Oxygen Flow Rate Fraction of Inspired Oxygen 06/26/25 14:00 Temperature 98.4 F Pulse Rate 97 Respiratory Rate 18 Blood Pressure 112/73 Pulse Oximetry 93 Oxygen Delivery Oxygen Flow Rate Fraction of Inspired Oxygen Intake/Output Intake/Output: Intake & Output 06/23/25 06/24/25 06/25/25 06/26/25 23:59 23:59 23:59 23:59 Intake Total 1050 4080 Output Total 1100 Balance 1050 2980 Meds/Results Medications: Active Medications Generic Name Dose Route Start Last Admin Trade Name Freq PRN Reason Stop Dose Admin Acetaminophen 1,000 mg 06/26/25 09:00 06/26/25 08:56 Acetaminophen 500 Mg Tablet PO 1,000 mg Q12HR ZEE Administration Acetaminophen 500 mg 06/26/25 05:45 Acetaminophen 500 Mg Tablet BY MOUTH Q6H PRN PAIN 1-3 OR FEVER Albuterol 2.5 mg 06/26/25 05:14 Albuterol Sulfate Neb 2.5 Mg/3 Ml Inh INHALATION DAILYRT PRN Shortness Of Breath Apixaban 5 mg 06/26/25 09:00 06/26/25 08:54 Apixaban 5 Mg Tablet PO 5 mg Q12HR ZEE Administration Cyclobenzaprine HCl 10 mg 06/26/25 21:00 Cyclobenzaprine Hcl 10 Mg Tablet PO HS ZEE Dextrose 12.5 gm 06/26/25 05:25 Dextrose 50% 25 Gm/50 Ml Syringe IV PUSH PRN PRN Hypoglycemia Protocol Famotidine 20 mg 06/26/25 21:00 Famotidine 20 Mg Tablet PO HS ZEE Ferrous Sulfate 325 mg 06/26/25 09:00 06/26/25 08:57 Ferrous Sulfate 325 Mg Tablet PO 325 mg DAILY ZEE Administration Folic Acid 1 mg 06/26/25 09:00 06/26/25 08:56 Folic Acid 1 Mg Tablet PO 1 mg DAILY ZEE Administration Gabapentin 300 mg 06/26/25 09:00 06/26/25 12:26 Gabapentin 300 Mg Capsule PO 300 mg TID ZEE Administration Glucagon 1 mg 06/26/25 05:25 Glucagon For Inj 1 Mg Vial IM PRN PRN Hypoglycemia Protocol Glucose 15 gm 06/26/25 05:25 Glucose Oral Gel 15 Gm Of Glucse In 37.5 Gm Tube PO PRN PRN Hypoglycemia Protocol Hydroxychloroquine Sulfate 200 mg 06/26/25 09:00 06/26/25 11:02 Hydroxychloroquine Sulfate 200 Mg Tablet PO 200 mg Q12HR ZEE Administration Lactated Ringer's 1,000 mls @ 125 mls/hr 06/26/25 00:45 06/26/25 09:21 Lr - Lactated Ringers Iv IV CONT 125 mls/hr .Q8H ZEE Administration Dextrose 1,000 mls @ 100 mls/hr 06/26/25 05:25 Dextrose 5% 1,000 Ml IVPB PRN PRN Hypoglycemia Protocol Metronidazole 500 mg in 100 mls @ 100 mls/hr 06/26/25 07:30 06/26/25 14:59 Flagyl 500 Mg/Iso Soln 100 Ml IVPB 100 mls/hr Q8HR ZEE Administration Cefepime HCl 2 gm/ Sodium 50 mls @ 100 mls/hr 06/26/25 11:00 06/26/25 12:02 Chloride IVPB 100 mls/hr Q12HR ZEE Administration Vancomycin HCl 1,500 mg in 500 mls @ 250 mls/hr 06/26/25 23:00 Vancomycin 1,500 Mg/Ns 500 Ml IVPB Q12H ZEE Insulin Aspart 3 - 6 units 06/26/25 08:00 06/26/25 12:28 Insulin Aspart (*Bkc) 100 Units/Ml SUB-Q 4 units TIDWM ZEE Administration Protocol Insulin Aspart 1 - 3 units 06/26/25 21:00 Insulin Aspart (*Bkc) 100 Units/Ml SUB-Q HS ZEE Protocol Insulin Glargine 36 units 06/26/25 09:00 06/26/25 09:22 Insulin Glargine (*Bkc) 100 Units/Ml SUB-Q 36 units Q12HR ZEE Administration Lisinopril 20 mg 06/26/25 21:00 Lisinopril 20 Mg Tablet PO HS [facility] Loratadine 10 mg 06/26/25 09:00 06/26/25 08:54 Loratadine 10 Mg Tablet PO 10 mg QAM ZEE Administration Magnesium Oxide 400 mg 06/26/25 21:00 Magnesium Oxide 400 Mg Tablet PO HS [facility] Metoprolol Tartrate 25 mg 06/26/25 09:00 06/26/25 08:59 Metoprolol Tartrate 25 Mg Tablet PO 25 mg Q12HR ZEE Administration Ondansetron HCl 4 mg 06/26/25 00:44 06/26/25 09:11 Ondansetron Inj 4 Mg/2 Ml Vial IV PUSH 4 mg Q4H PRN Administration Nausea Pantoprazole Sodium 40 mg 06/26/25 09:00 06/26/25 08:56 Pantoprazole 40 Mg Tablet PO 40 mg Q12HR ZEE Administration Potassium Chloride 20 meq 06/26/25 09:00 06/26/25 08:55 Potassium Chloride 20 Meq Er Tablet PO 20 meq DAILY ZEE Administration Prednisone 5 mg 06/26/25 08:00 06/26/25 08:55 Prednisone 5 Mg Tablet PO 5 mg DAILY@0800 ZEE Administration Prednisone 40 mg 06/26/25 08:00 06/26/25 08:55 Prednisone 20 Mg Tablet PO 40 mg DAILY@0800 ZEE Administration Fluticasone/Salmeterol 2 puff 06/26/25 08:00 06/26/25 07:12 Fluticasone/Salmeterol 115-21 Mcg Inhaler 1 Puff INHALATION 2 puff Q12HRT ZEE Administration Tramadol HCl 50 mg 06/26/25 05:24 06/26/25 09:11 Tramadol Hcl (*Crx) 50 Mg Tablet PO 50 mg Q4H PRN Administration Pain 7-10 Venlafaxine HCl 150 mg 06/26/25 09:00 06/26/25 08:55 Venlafaxine Hcl Xr 75 Mg Cap.Er.24h PO 150 mg QAM ZEE Administration Radiology Results: ITS Impressions Chest X-Ray 06/26/25 06:18 IMPRESSION: 1. No acute cardiopulmonary findings given portable technique. Chest CTA 06/26/25 06:20 IMPRESSION: 1. No PE or other acute cardiopulmonary findings. Labs Labs: Laboratory Results - last 24 hr 06/25/25 06/25/25 06/25/25 20:55 20:55 20:56 WBC 11.0 H RBC 4.21 Hgb 12.4 Hct 38.7 MCV 91.9 MCH 29.5 MCHC 32.0 RDW 16.5 H Plt Count 299 MPV 10.7 H Immature Gran % (Auto) 1.3 H Neut % (Auto) 65.0 Lymph % (Auto) 21.6 [place] % (Auto) 11.2 H Eos % (Auto) 0.4 Baso % (Auto) 0.5 Lymph # (Auto) 2.37 [place] # (Auto) 1.2 H Eos # (Auto) 0.0 Baso # (Auto) 0.1 Abs Immat Gran (auto) 0.14 H Absolute Neuts (auto) 7.1 H Absolute Nucleated RBC 0.000 Nucleated RBC % 0.0 PT 13.3 INR 1.0 APTT 21.9 L Puncture Site ABG pH ABG pCO2 ABG pO2 ABG PO2/FiO2 Ratio ABG HCO3 ABG O2 Saturation ABG O2 Content ABG Base Excess A-a Gradient Oxyhemoglobin Carboxyhemoglobin Methemoglobin Reduced Hemoglobin Total Hemoglobin O2 Delivery Device O2 Liters/Min FiO2 Sodium 133 L Potassium 4.5 Chloride 98 Carbon Dioxide 28 Anion Gap 7 BUN 29 H Creatinine 1.08 H Estim Creat Clear Calc Not Reportable Estimated GFR 54 L Glucose 216 H POC Capillary Glucose Lactic Acid 2.3 H Calcium 9.0 Total Bilirubin 1.0 AST 33 ALT 79 H Alkaline Phosphatase 92 Total Creatine Kinase C-Reactive Protein 4.0 H NT-Pro-B Natriuret Pep 93 Cancelled Total Protein 7.0 Albumin 3.9 Urine Color Urine Appearance Urine pH Ur Specific [place] Urine Protein Urine Glucose (UA) Urine Ketones Ur Blood (Man) Urine Nitrate Urine Bilirubin Urine Urobilinogen Add Ur Microanalysis Leukocyte Esterase Rfl Urine RBC Urine WBC Ur Squamous Epith Cells Urine Bacteria Urine Casts Urine Mucus POC Urine HCG, Qual Influenza A (RT-PCR) Influenza B (RT-PCR) RSV (RT-PCR) SARS-CoV-2 RNA (RT-PCR) 06/25/25 06/25/25 06/25/25 21:08 21:23 21:29 WBC RBC Hgb Hct MCV MCH MCHC RDW Plt Count MPV Immature Gran % (Auto) Neut % (Auto) Lymph % (Auto) [place] % (Auto) Eos % (Auto) Baso % (Auto) Lymph # (Auto) [place] # (Auto) Eos # (Auto) Baso # (Auto) Abs Immat Gran (auto) Absolute Neuts (auto) Absolute Nucleated RBC Nucleated RBC % PT INR APTT Puncture Site ABG pH ABG pCO2 ABG pO2 ABG PO2/FiO2 Ratio ABG HCO3 ABG O2 Saturation ABG O2 Content ABG Base Excess A-a Gradient Oxyhemoglobin Carboxyhemoglobin Methemoglobin Reduced Hemoglobin Total Hemoglobin O2 Delivery Device O2 Liters/Min FiO2 Sodium Potassium Chloride Carbon Dioxide Anion Gap BUN Creatinine Estim Creat Clear Calc Estimated GFR Glucose POC Capillary Glucose Lactic Acid Calcium Total Bilirubin AST ALT Alkaline Phosphatase Total Creatine Kinase C-Reactive Protein NT-Pro-B Natriuret Pep Total Protein Albumin Urine Color Dark yellow Urine Appearance Cloudy H Urine pH 5.0 Ur Specific [place] 1.024 Urine Protein 1+ H Urine Glucose (UA) Trace H Urine Ketones 1+ H Ur Blood (Man) Negative Urine Nitrate Negative Urine Bilirubin 1+ H Urine Urobilinogen 1.0 Add Ur Microanalysis Reviewed Leukocyte Esterase Rfl Negative Urine RBC 11-20 H Urine WBC 6-10 H Ur Squamous Epith Cells Many H Urine Bacteria None seen Urine Casts 6-10 Urine Mucus Present POC Urine HCG, Qual Negative Influenza A (RT-PCR) Negative Influenza B (RT-PCR) Negative RSV (RT-PCR) Negative SARS-CoV-2 RNA (RT-PCR) Negative 06/25/25 06/25/25 06/26/25 23:30 23:34 07:54 WBC 8.6 RBC 3.59 L Hgb 10.6 L Hct 33.2 L MCV 92.5 MCH 29.5 MCHC 31.9 L RDW 16.8 H Plt Count 260 MPV 10.5 H Immature Gran % (Auto) 1.4 H Neut % (Auto) 55.7 Lymph % (Auto) 28.4 [place] % (Auto) 13.1 H Eos % (Auto) 0.7 Baso % (Auto) 0.7 Lymph # (Auto) 2.43 [place] # (Auto) 1.1 H Eos # (Auto) 0.1 Baso # (Auto) 0.1 Abs Immat Gran (auto) 0.12 H Absolute Neuts (auto) 4.8 Absolute Nucleated RBC 0.000 Nucleated RBC % 0.0 PT INR APTT Puncture Site Right radial ABG pH 7.456 H ABG pCO2 33.7 L ABG pO2 78.7 L ABG PO2/FiO2 Ratio 3.28 ABG HCO3 23.2 ABG O2 Saturation 96.3 ABG O2 Content 16.4 ABG Base Excess -0.1 A-a Gradient 52.3 Oxyhemoglobin 94.7 Carboxyhemoglobin 1.1 Methemoglobin 0.3 Reduced Hemoglobin 3.9 Total Hemoglobin 12.3 O2 Delivery Device Nasal cannula O2 Liters/Min 2.0 FiO2 24 Sodium 130 L Potassium 4.1 Chloride 100 Carbon Dioxide 25 Anion Gap 5 BUN 26 H Creatinine 0.78 Estim Creat Clear Calc 113 Estimated GFR > 60 Glucose 161 H POC Capillary Glucose Lactic Acid 2.6 H 1.0 Calcium 8.4 Total Bilirubin 0.9 AST 27 ALT 67 H Alkaline Phosphatase 76 Total Creatine Kinase 115 C-Reactive Protein NT-Pro-B Natriuret Pep Total Protein 6.1 L Albumin 3.4 L Urine Color Urine Appearance Urine pH Ur Specific [place] Urine Protein Urine Glucose (UA) Urine Ketones Ur Blood (Man) Urine Nitrate Urine Bilirubin Urine Urobilinogen Add Ur Microanalysis Leukocyte Esterase Rfl Urine RBC Urine WBC Ur Squamous Epith Cells Urine Bacteria Urine Casts Urine Mucus POC Urine HCG, Qual Influenza A (RT-PCR) Influenza B (RT-PCR) RSV (RT-PCR) SARS-CoV-2 RNA (RT-PCR) 06/26/25 06/26/25 06/26/25 07:55 08:22 11:34 WBC RBC Hgb Hct MCV MCH MCHC RDW Plt Count MPV Immature Gran % (Auto) Neut % (Auto) Lymph % (Auto) [place] % (Auto) Eos % (Auto) Baso % (Auto) Lymph # (Auto) [place] # (Auto) Eos # (Auto) Baso # (Auto) Abs Immat Gran (auto) Absolute Neuts (auto) Absolute Nucleated RBC Nucleated RBC % PT INR APTT Puncture Site ABG pH ABG pCO2 ABG pO2 ABG PO2/FiO2 Ratio ABG HCO3 ABG O2 Saturation ABG O2 Content ABG Base Excess A-a Gradient Oxyhemoglobin Carboxyhemoglobin Methemoglobin Reduced Hemoglobin Total Hemoglobin O2 Delivery Device O2 Liters/Min FiO2 Sodium Potassium Chloride Carbon Dioxide Anion Gap BUN Creatinine Estim Creat Clear Calc Estimated GFR Glucose POC Capillary Glucose 193 H 279 H Lactic Acid Calcium Total Bilirubin AST ALT Alkaline Phosphatase Total Creatine Kinase Cancelled C-Reactive Protein NT-Pro-B Natriuret Pep Total Protein Albumin Urine Color Urine Appearance Urine pH Ur Specific [place] Urine Protein Urine Glucose (UA) Urine Ketones Ur Blood (Man) Urine Nitrate Urine Bilirubin Urine Urobilinogen Add Ur Microanalysis Leukocyte Esterase Rfl Urine RBC Urine WBC Ur Squamous Epith Cells Urine Bacteria Urine Casts Urine Mucus POC Urine HCG, Qual Influenza A (RT-PCR) Influenza B (RT-PCR) RSV (RT-PCR) SARS-CoV-2 RNA (RT-PCR)
[2025-06-26] MEDS: FAMOTIDINE 20 MG TABLET PO (21:19)
[2025-06-26] MEDS: CYCLOBENZAPRINE HCL 10 MG TABLET PO (21:19)
[2025-06-26] MEDS: MAGNESIUM OXIDE 400 MG TABLET PO (21:20)
[2025-06-26] MEDS: VANCOMYCIN 1,500 MG/NS 500 ML 1,500 MG/500 ML BAG 250 MG IVPB (21:31)
[2025-06-27] VITALS (14 sets, daily range): BP systolic 118–132; BP diastolic 75–83; PULSE 92–110; RESP 16–20; TEMP 36.2–36.3; O2SAT 95–100
[2025-06-27] MEDS: LACTATED RINGERS 1,000 ML 125 ML IV CONT (05:16)
[2025-06-27] MEDS: metroNIDAZOLE 500 MG/ISO 100ML 500 MG/100 ML BAG 100 MG IVPB ×3 (05:20→21:50)
[2025-06-27 06:23] LABS: Hematocrit 34.5 % (37.0-47.0); Hemoglobin 10.9 g/dL (12.0-15.0); Immature Granulocyte Percent A 1.2 % (0-0.5); Lymphocytes Absolute Auto 0.98 K/mm3 (0.9-3.2); Mean Corpuscular HGB Conc 31.6 g/dl (32-36); Mean Corpuscular Hemoglobin 29.4 pg (26-34); Mean Corpuscular Volume 93.0 fl (80-100); Nucleated Red Blood Cells Absolute Auto 0.000 K/mm3 (0.0-0.012); Nucleated Red Blood Cells Perc 0.0 % (0.0-0.2); Platelet Count Result 278 k/mm3 (150-375); Red Blood Count 3.71 M/mm3 (4.2-5.4); White Blood Count 9.4 K/mm3 (4.5-10.0)
[2025-06-27 06:45] LABS: Alanine Aminotransferase 63 U/L (6-35); Albumin Level 3.4 g/dL (3.5-5.1); Alkaline Phosphatase 72 U/L (38-126); Anion Gap 6 mmol/L (4-12); Aspartate Amino Transferase 26 U/L (14-36); Bilirubin,Total 0.5 mg/dL (0.2-1.3); Blood Urea Nitrogen 16 mg/dL (7-17); Calcium 8.3 mg/dL (8.4-10.2); Carbon Dioxide 25 mmol/L (22-30); Chloride 101 mmol/L (98-107); Estimated CRCL calculation 132 ml/min; Estimated Glomerular Filt Rate > 60; Glucose 202 mg/dL (65-110); Magnesium 2.2 mg/dL (1.6-2.3); Potassium 4.2 mmol/L (3.4-5.0); Sodium 132 mmol/L (137-145); Total Protein 6.0 g/dL (6.3-8.2)
[2025-06-27] MEDS: FLUTICASONE/SALMETEROL 115-21 MCG INHALER 1 PUFF 2 PUFF INHALATION ×2 (07:39→20:40)
[2025-06-27] MEDS: CEFEPIME 2 GM in SODIUM CHLORIDE 0.9% IV 50 ML 100 ML IVPB ×2 (09:24→21:50)
[2025-06-27] MEDS: VENLAFAXINE HCL XR 75 MG CAP.ER.24H 150 MG PO (09:24)
[2025-06-27] MEDS: APIXABAN 5 MG TABLET PO ×2 (09:25→21:49)
[2025-06-27] MEDS: FERROUS SULFATE 325 MG TABLET PO (09:25)
[2025-06-27] MEDS: GABAPENTIN 300 MG CAPSULE PO ×3 (09:25→17:53)
[2025-06-27] MEDS: LORATADINE 10 MG TABLET PO (09:25)
[2025-06-27] MEDS: HYDROXYCHLOROQUINE SULFATE 200 MG TABLET PO ×2 (09:25→21:49)
[2025-06-27] MEDS: ACETAMINOPHEN 500 MG TABLET 1000 MG PO ×2 (09:25→21:45)
[2025-06-27] MEDS: METOPROLOL TARTRATE 25 MG TABLET PO ×2 (09:25→21:48)
[2025-06-27] MEDS: FOLIC ACID 1 MG TABLET PO (09:25)
[2025-06-27] MEDS: POTASSIUM CHLORIDE 20 MEQ ER TABLET PO (09:25)
[2025-06-27] MEDS: PANTOPRAZOLE 40 MG TABLET PO ×2 (09:26→21:49)
[2025-06-27] MEDS: INSULIN ASPART (*BKC) 100 UNITS/ML SUB-Q ×3 (09:29→21:57)
[2025-06-27] MEDS: INSULIN GLARGINE (*BKC) 100 UNITS/ML 36 UNITS SUB-Q (09:30)
[2025-06-27] MEDS: VANCOMYCIN 1,500 MG/NS 500 ML 1,500 MG/500 ML BAG 250 MG IVPB ×2 (12:03→23:29)
--- NOTE | 2025-06-27 17:28 | PM.IMPN ---
Progress Note: A&P Assessment and Plan (1) Sepsis: Code(s): A41.9 - Sepsis, unspecified organism Status: Acute Assessment and Plan: SIRS present on admission with sinus tachycardia, elevated WBC and lactic acidosis. Probable sepsis with source being cellulitis although skin exam showing almost complete resolution. Chest CTA showing no PE or other acute cardiopulmonary findings. UA was cloudy with negative LE/N, 6-10 WBC and many squamous cells. Did not reflex to UCx BCx (06/25): pending Started on Flagyl/Cefepime/Vanc (06/26) Exposed to kittens - consider bartonella. Prednisone continued. Clinically stable so will hold off on stress dose steroids (2) Cellulitis: Qualifiers: Site of cellulitis: extremity Site of cellulitis of extremity: lower extremity Laterality: right Qualified Code(s): L03.115 - Cellulitis of right lower limb Code(s): L03.90 - Cellulitis, unspecified Status: Acute Assessment and Plan: As above (3) Acute kidney injury: Code(s): N17.9 - Acute kidney failure, unspecified Status: Acute Assessment and Plan: Mild elevation of admission Cr to 1.08 but normal now with eGFR>60 and CrCl 113 Follow (4) Diabetes mellitus, insulin dependent (IDDM), uncontrolled: Status: Chronic Assessment and Plan: The patient's blood glucose was reviewed on 06/27 Glucose markedly elevated Continue AccuCheks covering with sliding scale. Hypoglycemia protocol available as needed. Advance Lantus and add meal time insulin (5) Hyperosmolar hyponatremia: Code(s): E87.0 - Hyperosmolality and hypernatremia; E87.1 - Hypo-osmolality and hyponatremia Status: Acute Assessment and Plan: Sodium 133 on admission. The patient received 3 L of fluid in the ER. Baseline sodium low 130's range. Lasix held and was given IV fluids. Sodium stable. Stop IV fluids and resume Lasix given the edema Follow (6) Autoimmune disease: Code(s): M35.9 - Systemic involvement of connective tissue, unspecified Status: Chronic Assessment and Plan: Patient has a known autoimmune disorder being followed by Rheumatology. Hydroxychloroquine and chronic prednisone resumed. Follow (7) JEREMY on CPAP: Code(s): G47.33 - Obstructive sleep apnea (adult) (pediatric) Status: Chronic Assessment and Plan: ABG noted. Continue CPAP at night and with naps. Plan DVT prophylaxis -Eliquis Code status -full Disp - start PT/OT Subjective Date/time seen: 06/27/25 17:28 Interval history: 50yo female with morbid obesity, JEREMY, possible vasculitis versus nonspecified autoimmune process on chronic high-dose steroids since May 2023, uncontrolled DM treated with insulin therapy, chronic venous stasis dermatitis and recurrent cellulitis who presented to the ER with generalized weakness and generalized pain everywhere. Feels much better. Mild headache but otherwise no pain. Having tingling in her feet which is chronic but feels worse today. Has chronic low back pain. Able to stand and pivot to the bedside commode. Exam Narrative: AF 97.3 118/75 96 16 95% 2L Gen - obese female with cushinoid features in NARD Chest - CTA bilaterally, nml RR CV - RRR S1/S2; Tele showing no significant dysrhythmias Abd - Soft, obese, NT, +BS Ext - diffusely edematous. Neuro - Alert and oriented. Nonfocal exam. Psych - Nml mood and affect. Smiling Skin - warm. chronic venous stasis skin changes bilateral (R>L) LE; RLE erythema resolved. Skin cool to touch Objective Data Vital Signs Vital Signs: Vital Signs - 24 hr 06/26/25 19:48 06/26/25 20:00 06/26/25 22:00 Temperature 97.2 F L Pulse Rate 103 H 103 H 101 H Respiratory Rate 18 Blood Pressure 135/81 Pulse Oximetry 96 100 Oxygen Delivery Nasal Cannula Oxygen Flow Rate 1 06/27/25 00:00 06/27/25 04:00 06/27/25 06:00 Temperature 97.4 F L Pulse Rate 95 92 93 Respiratory Rate 18 Blood Pressure 126/78 Pulse Oximetry 96 Oxygen Delivery Oxygen Flow Rate 06/27/25 07:39 06/27/25 07:50 06/27/25 09:25 Temperature Pulse Rate 95 106 H Respiratory Rate 19 Blood Pressure Pulse Oximetry 96 Oxygen Delivery Nasal Cannula Oxygen Flow Rate 1 06/27/25 09:25 06/27/25 14:00 Temperature 97.3 F L Pulse Rate 96 Respiratory Rate 16 Blood Pressure 118/75 Pulse Oximetry 95 95 Oxygen Delivery Nasal Cannula Oxygen Flow Rate 2 Intake/Output Intake/Output: Intake & Output 06/24/25 06/25/25 06/26/25 06/27/25 23:59 23:59 23:59 23:59 Intake Total 1050 0970 765 Output Total 1100 Balance 1050 3670 765 Meds/Results Medications: Active Medications Generic Name Dose Route Start Last Admin Trade Name Freq PRN Reason Stop Dose Admin Acetaminophen 1,000 mg 06/26/25 09:00 06/27/25 09:25 Acetaminophen 500 Mg Tablet PO 1,000 mg Q12HR ZEE Administration Acetaminophen 500 mg 06/26/25 05:45 Acetaminophen 500 Mg Tablet BY MOUTH Q6H PRN PAIN 1-3 OR FEVER Albuterol 2.5 mg 06/26/25 05:14 Albuterol Sulfate Neb 2.5 Mg/3 Ml Inh INHALATION DAILYRT PRN Shortness Of Breath Apixaban 5 mg 06/26/25 09:00 06/27/25 09:25 Apixaban 5 Mg Tablet PO 5 mg Q12HR ZEE Administration Cyclobenzaprine HCl 10 mg 06/26/25 21:00 06/26/25 21:19 Cyclobenzaprine Hcl 10 Mg Tablet PO 10 mg HS ZEE Administration Dextrose 12.5 gm 06/26/25 05:25 Dextrose 50% 25 Gm/50 Ml Syringe IV PUSH PRN PRN Hypoglycemia Protocol Famotidine 20 mg 06/26/25 21:00 06/26/25 21:19 Famotidine 20 Mg Tablet PO 20 mg HS ZEE Administration Ferrous Sulfate 325 mg 06/26/25 09:00 06/27/25 09:25 Ferrous Sulfate 325 Mg Tablet PO 325 mg DAILY ZEE Administration Folic Acid 1 mg 06/26/25 09:00 06/27/25 09:25 Folic Acid 1 Mg Tablet PO 1 mg DAILY ZEE Administration Gabapentin 300 mg 06/26/25 09:00 06/27/25 12:46 Gabapentin 300 Mg Capsule PO 300 mg TID ZEE Administration Glucagon 1 mg 06/26/25 05:25 Glucagon For Inj 1 Mg Vial IM PRN PRN Hypoglycemia Protocol Glucose 15 gm 06/26/25 05:25 Glucose Oral Gel 15 Gm Of Glucse In 37.5 Gm Tube PO PRN PRN Hypoglycemia Protocol Hydroxychloroquine Sulfate 200 mg 06/26/25 09:00 06/27/25 09:25 Hydroxychloroquine Sulfate 200 Mg Tablet PO 200 mg Q12HR ZEE Administration Dextrose 1,000 mls @ 100 mls/hr 06/26/25 05:25 Dextrose 5% 1,000 Ml IVPB PRN PRN Hypoglycemia Protocol Metronidazole 500 mg in 100 mls @ 100 mls/hr 06/26/25 07:30 06/27/25 15:11 Flagyl 500 Mg/Iso Soln 100 Ml IVPB 100 mls/hr Q8HR ZEE Administration Cefepime HCl 2 gm/ Sodium 50 mls @ 100 mls/hr 06/26/25 11:00 06/27/25 09:24 Chloride IVPB 100 mls/hr Q12HR ZEE Administration Vancomycin HCl 1,500 mg in 500 mls @ 250 mls/hr 06/26/25 23:00 06/27/25 12:03 Vancomycin 1,500 Mg/Ns 500 Ml IVPB 250 mls/hr Q12H ZEE Administration Insulin Aspart 3 - 6 units 06/26/25 08:00 06/27/25 12:46 Insulin Aspart (*Bkc) 100 Units/Ml SUB-Q 6 units TIDWM ZEE Administration Protocol Insulin Aspart 1 - 3 units 06/26/25 21:00 06/26/25 21:22 Insulin Aspart (*Bkc) 100 Units/Ml SUB-Q 2 units HS ZEE Administration Protocol Insulin Glargine 36 units 06/26/25 09:00 06/27/25 09:30 Insulin Glargine (*Bkc) 100 Units/Ml SUB-Q 36 units Q12HR ZEE Administration Lisinopril 20 mg 06/26/25 21:00 06/26/25 21:20 Lisinopril 20 Mg Tablet PO 20 mg HS ZEE Administration Loratadine 10 mg 06/26/25 09:00 06/27/25 09:25 Loratadine 10 Mg Tablet PO 10 mg QAM ZEE Administration Magnesium Oxide 400 mg 06/26/25 21:00 06/26/25 21:20 Magnesium Oxide 400 Mg Tablet PO 400 mg HS ZEE Administration Metoprolol Tartrate 25 mg 06/26/25 09:00 06/27/25 09:25 Metoprolol Tartrate 25 Mg Tablet PO 25 mg Q12HR ZEE Administration Ondansetron HCl 4 mg 06/26/25 00:44 06/26/25 09:11 Ondansetron Inj 4 Mg/2 Ml Vial IV PUSH 4 mg Q4H PRN Administration Nausea Pantoprazole Sodium 40 mg 06/26/25 09:00 06/27/25 09:26 Pantoprazole 40 Mg Tablet PO 40 mg Q12HR ZEE Administration Potassium Chloride 20 meq 06/26/25 09:00 06/27/25 09:25 Potassium Chloride 20 Meq Er Tablet PO 20 meq DAILY ZEE Administration Prednisone 5 mg 06/26/25 08:00 06/27/25 09:26 Prednisone 5 Mg Tablet PO 5 mg DAILY@0800 ZEE Administration Prednisone 40 mg 06/26/25 08:00 06/27/25 09:24 Prednisone 20 Mg Tablet PO 40 mg DAILY@0800 ZEE Administration Fluticasone/Salmeterol 2 puff 06/26/25 08:00 06/27/25 07:39 Fluticasone/Salmeterol 115-21 Mcg Inhaler 1 Puff INHALATION 2 puff Q12HRT ZEE Administration Tramadol HCl 50 mg 06/26/25 05:24 06/26/25 09:11 Tramadol Hcl (*Crx) 50 Mg Tablet PO 50 mg Q4H PRN Administration Pain 7-10 Venlafaxine HCl 150 mg 06/26/25 09:00 06/27/25 09:24 Venlafaxine Hcl Xr 75 Mg Cap.Er.24h PO 150 mg QAM ZEE Administration Radiology Results: ITS Impressions Chest X-Ray 06/26/25 06:18 IMPRESSION: 1. No acute cardiopulmonary findings given portable technique. Chest CTA 06/26/25 06:20 IMPRESSION: 1. No PE or other acute cardiopulmonary findings. Labs Labs: Laboratory Results - last 24 hr 06/26/25 06/27/25 06/27/25 21:10 05:36 07:24 WBC 9.4 RBC 3.71 L Hgb 10.9 L Hct 34.5 L MCV 93.0 MCH 29.4 MCHC 31.6 L RDW 15.9 H Plt Count 278 MPV 10.8 H Immature Gran % (Auto) 1.2 H Neut % (Auto) 79.0 H Lymph % (Auto) 10.4 L [place] % (Auto) 8.7 H Eos % (Auto) 0.2 Baso % (Auto) 0.5 Lymph # (Auto) 0.98 [place] # (Auto) 0.8 H Eos # (Auto) 0.0 Baso # (Auto) 0.1 Abs Immat Gran (auto) 0.11 H Absolute Neuts (auto) 7.4 H Absolute Nucleated RBC 0.000 Nucleated RBC % 0.0 Sodium 132 L Potassium 4.2 Chloride 101 Carbon Dioxide 25 Anion Gap 6 BUN 16 D Creatinine 0.66 L Estim Creat Clear Calc 132 Estimated GFR > 60 Glucose 202 H POC Capillary Glucose 320 H 223 H Calcium 8.3 L Phosphorus 3.0 Magnesium 2.2 Total Bilirubin 0.5 AST 26 ALT 63 H Alkaline Phosphatase 72 Total Protein 6.0 L Albumin 3.4 L 06/27/25 06/27/25 12:19 16:49 WBC RBC Hgb Hct MCV MCH MCHC RDW Plt Count MPV Immature Gran % (Auto) Neut % (Auto) Lymph % (Auto) [place] % (Auto) Eos % (Auto) Baso % (Auto) Lymph # (Auto) [place] # (Auto) Eos # (Auto) Baso # (Auto) Abs Immat Gran (auto) Absolute Neuts (auto) Absolute Nucleated RBC Nucleated RBC % Sodium Potassium Chloride Carbon Dioxide Anion Gap BUN Creatinine Estim Creat Clear Calc Estimated GFR Glucose POC Capillary Glucose 399 H 469 H Calcium Phosphorus Magnesium Total Bilirubin AST ALT Alkaline Phosphatase Total Protein Albumin
[2025-06-27] MEDS: INSULIN ASPART (*BKC) 100 UNITS/ML 12 UNITS SUB-Q (17:53)
[2025-06-27] MEDS: ASCORBIC ACID 500 MG TABLET 1000 MG PO (21:45)
[2025-06-27] MEDS: ATORVASTATIN 40 MG TABLET PO (21:48)
[2025-06-27] MEDS: MAGNESIUM OXIDE 400 MG TABLET PO (21:49)
[2025-06-27] MEDS: FAMOTIDINE 20 MG TABLET PO (21:49)
[2025-06-27] MEDS: CYCLOBENZAPRINE HCL 10 MG TABLET PO (21:49)
[2025-06-27] MEDS: INSULIN GLARGINE (*BKC) 100 UNITS/ML 40 UNITS SUB-Q (21:57)
[2025-06-28] VITALS (15 sets, daily range): BP systolic 111–129; BP diastolic 71–78; PULSE 86–108; RESP 18–20; TEMP 36.1–36.6; O2SAT 91–100
[2025-06-28] MEDS: traMADol HCL (*CRX) 50 MG TABLET PO (02:39)
[2025-06-28 05:34] LABS: Albumin Level 3.6 g/dL (3.5-5.1); Anion Gap 3 mmol/L (4-12); Blood Urea Nitrogen 15 mg/dL (7-17); Calcium 9.0 mg/dL (8.4-10.2); Carbon Dioxide 28 mmol/L (22-30); Chloride 101 mmol/L (98-107); Estimated CRCL calculation 112 ml/min; Estimated Glomerular Filt Rate > 60; Glucose 224 mg/dL (65-110); Potassium 4.0 mmol/L (3.4-5.0); Sodium 132 mmol/L (137-145)
[2025-06-28] MEDS: metroNIDAZOLE 500 MG/ISO 100ML 500 MG/100 ML BAG 100 MG IVPB ×3 (06:07→21:49)
[2025-06-28] MEDS: FLUTICASONE/SALMETEROL 115-21 MCG INHALER 1 PUFF 2 PUFF INHALATION ×2 (08:05→21:10)
[2025-06-28] MEDS: FOLIC ACID 1 MG TABLET PO (08:13)
[2025-06-28] MEDS: VENLAFAXINE HCL XR 75 MG CAP.ER.24H 150 MG PO (08:13)
[2025-06-28] MEDS: ACETAMINOPHEN 500 MG TABLET 1000 MG PO ×2 (08:13→20:10)
[2025-06-28] MEDS: POTASSIUM CHLORIDE 20 MEQ ER TABLET PO (08:13)
[2025-06-28] MEDS: PANTOPRAZOLE 40 MG TABLET PO ×2 (08:13→20:11)
[2025-06-28] MEDS: GABAPENTIN 300 MG CAPSULE PO ×3 (08:13→17:39)
[2025-06-28] MEDS: HYDROXYCHLOROQUINE SULFATE 200 MG TABLET PO ×2 (08:13→20:08)
[2025-06-28] MEDS: APIXABAN 5 MG TABLET PO ×2 (08:13→20:09)
[2025-06-28] MEDS: FUROSEMIDE 40 MG TABLET PO (08:13)
[2025-06-28] MEDS: FERROUS SULFATE 325 MG TABLET PO (08:14)
[2025-06-28] MEDS: LORATADINE 10 MG TABLET PO (08:14)
[2025-06-28] MEDS: METOPROLOL TARTRATE 25 MG TABLET PO ×2 (08:14→20:08)
[2025-06-28] MEDS: ASCORBIC ACID 500 MG TABLET 1000 MG PO ×2 (08:14→20:07)
[2025-06-28] MEDS: INSULIN ASPART (*BKC) 100 UNITS/ML SUB-Q ×4 (08:15→20:53)
[2025-06-28] MEDS: CEFEPIME 2 GM in SODIUM CHLORIDE 0.9% IV 50 ML 100 ML IVPB ×2 (08:15→21:06)
[2025-06-28] MEDS: INSULIN GLARGINE (*BKC) 100 UNITS/ML 40 UNITS SUB-Q ×2 (08:16→20:51)
[2025-06-28] MEDS: INSULIN ASPART (*BKC) 100 UNITS/ML 7 UNITS SUB-Q ×3 (08:16→17:41)
[2025-06-28] MEDS: VANCOMYCIN 1,500 MG/NS 500 ML 1,500 MG/500 ML BAG 250 MG IVPB ×2 (11:24→23:52)
--- NOTE | 2025-06-28 14:59 | PM.IMPN ---
Progress Note: A&P Assessment and Plan (1) Sepsis: Code(s): A41.9 - Sepsis, unspecified organism Status: Acute Assessment and Plan: SIRS present on admission with sinus tachycardia, elevated WBC and lactic acidosis. Probable sepsis with source being cellulitis . Chest CTA showing no PE or other acute cardiopulmonary findings. UA was cloudy with negative LE/N, 6-10 WBC and many squamous cells. Did not reflex to UCx BCx (06/25): pending Started on Flagyl/Cefepime/Vanc (06/26) Exposed to kittens - consider bartonella. Prednisone continued. Clinically stable so will hold off on stress dose steroids (2) Cellulitis: Qualifiers: Site of cellulitis: extremity Site of cellulitis of extremity: lower extremity Laterality: right Qualified Code(s): L03.115 - Cellulitis of right lower limb Code(s): L03.90 - Cellulitis, unspecified Status: Acute Assessment and Plan: As above (3) Acute kidney injury: Code(s): N17.9 - Acute kidney failure, unspecified Status: Acute Assessment and Plan: Mild elevation of admission Cr to 1.08 but normal now with eGFR>60 and CrCl 113 Follow Kidney function improved. We will give a dose of Lasix (4) Diabetes mellitus, insulin dependent (IDDM), uncontrolled: Status: Chronic Assessment and Plan: The patient's blood glucose was reviewed on 06/27 Glucose markedly elevated Continue AccuCheks covering with sliding scale. Hypoglycemia protocol available as needed. Advance Lantus and add meal time insulin (5) Hyperosmolar hyponatremia: Code(s): E87.0 - Hyperosmolality and hypernatremia; E87.1 - Hypo-osmolality and hyponatremia Status: Acute Assessment and Plan: Sodium 133 on admission. The patient received 3 L of fluid in the ER. Baseline sodium low 130's range. Resume Lasix Sodium stable. Stop IV fluids and resume Lasix given the edema Follow (6) Autoimmune disease: Code(s): M35.9 - Systemic involvement of connective tissue, unspecified Status: Chronic Assessment and Plan: Patient has a known autoimmune disorder being followed by Rheumatology. Hydroxychloroquine and chronic prednisone resumed. Follow (7) JEREMY on CPAP: Code(s): G47.33 - Obstructive sleep apnea (adult) (pediatric) Status: Chronic Assessment and Plan: ABG noted. Continue CPAP at night and with naps. Plan DVT prophylaxis -Eliquis Code status -full Disp - start PT/OT Subjective Date/time seen: 06/28/25 14:59 Interval history: 50yo female with morbid obesity, JEREMY, possible vasculitis versus nonspecified autoimmune process on chronic high-dose steroids since May 2023, uncontrolled DM treated with insulin therapy, chronic venous stasis dermatitis and recurrent cellulitis who presented to the ER with generalized weakness and generalized pain everywhere. Feels much better. Mild headache but otherwise no pain. Having tingling in her feet which is chronic but feels worse today. Has chronic low back pain. Able to stand and pivot to the bedside commode. 06/28/25 Patient was seen examined. She is feeling better. He legs redness improving. Still has bilateral leg edema. Continue treatment for sepsis cellulitis. Continue IV antibiotics. Following vancomycin level Review of Systems Review of Systems: 12 systems were reviewed with pertinent positives and negatives per HPI. Except as documented in the HPI, all other systems were reviewed and are negative. Exam Narrative: AF 97.3 118/75 96 16 95% 2L Gen - obese female with cushinoid features in NARD Chest - CTA bilaterally, nml RR CV - RRR S1/S2; Tele showing no significant dysrhythmias Abd - Soft, obese, NT, +BS Ext - diffusely edematous. Neuro - Alert and oriented. Nonfocal exam. Psych - Nml mood and affect. Smiling Skin - warm. chronic venous stasis skin changes bilateral (R>L) LE; Skin cool to touch Const: Other: Chronically ill-appearing, morbidly obese, appears older than stated age HENMT: Other: Mucous membranes are moist, no oral pharyngeal erythema, crowded posterior oropharynx, nasal CPAP in place Eyes: Other: Pupils are equal and reactive, no scleral icterus, no conjunctival pallor Neck: Other: Large neck circumference, short neck, no JVD Resp: Other: Clear to auscultation bilaterally, no increased work of breathing, no tachypnea Cardio: Other: Sinus tachycardia, 2+ bilateral radial pedal pulses, no murmur GI: Other: Soft, nontender, normoactive bowel sounds Skin: Other: Small scratches on her arms consistent with her history of kitten in her home, chronic circumferential erythema to the left lower extremity with no increased warmth or drainage, at right lower extremity has 3/4 of a leg in circumference that is markedly more erythematous and warm compared to the left with several small shallow ulcerations the largest of which isn't on the anterior medial portion of the right lower extremity but ulcer base appears clean and dry, and patient's feet are dirty but no open wounds to the feet or toes Neuro: Other: Alert oriented, speech is clear, no facial asymmetry, no localizing neurologic deficits noted during conversation, 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 Extrem: Other: Chronic venous stasis changes of bilateral lower extremities with increased warmth and erythema right lower extremity as discussed above, otherwise moves all extremities equally exam somewhat limited due to patient's body habitus Psych: Other: Mildly anxious but otherwise pleasant and cooperative Objective Data Vital Signs Vital Signs: Vital Signs - 24 hr 06/27/25 16:00 06/27/25 20:00 06/27/25 20:00 Temperature Pulse Rate 98 104 H Respiratory Rate Blood Pressure Pulse Oximetry 96 Oxygen Delivery Nasal Cannula Oxygen Flow Rate 2 Fraction of Inspired Oxygen 06/27/25 20:40 06/27/25 20:44 06/27/25 22:00 Temperature 97.1 F L Pulse Rate 110 H 110 H 108 H Respiratory Rate 20 20 18 Blood Pressure 132/83 Pulse Oximetry 95 100 Oxygen Delivery Nasal Cannula Oxygen Flow Rate 2 Fraction of Inspired Oxygen 06/28/25 00:00 06/28/25 01:35 06/28/25 04:00 Temperature Pulse Rate 108 H 98 95 Respiratory Rate Blood Pressure Pulse Oximetry 95 Oxygen Delivery Autopap Oxygen Flow Rate Fraction of Inspired Oxygen 06/28/25 04:58 06/28/25 06:00 06/28/25 08:00 Temperature 97.0 F L Pulse Rate 95 89 92 Respiratory Rate 18 18 Blood Pressure 129/78 Pulse Oximetry 91 100 100 Oxygen Delivery Autopap Nasal Cannula Oxygen Flow Rate 2 Fraction of Inspired Oxygen 06/28/25 08:14 06/28/25 11:46 06/28/25 14:00 Temperature 98 F Pulse Rate 92 94 Respiratory Rate 18 Blood Pressure 122/76 Pulse Oximetry 96 Oxygen Delivery Nasal Cannula Oxygen Flow Rate 2 Fraction of Inspired Oxygen Intake/Output Intake/Output: Intake & Output 06/25/25 06/26/25 06/27/25 06/28/25 23:59 23:59 23:59 23:59 Intake Total 1050 6670 2585 1920 Output Total 1100 1 3 Balance 1050 0570 2584 1917 Meds/Results Medications: Active Medications Generic Name Dose Route Start Last Admin Trade Name Freq PRN Reason Stop Dose Admin Acetaminophen 1,000 mg 06/26/25 09:00 06/28/25 08:13 Acetaminophen 500 Mg Tablet PO 1,000 mg Q12HR ZEE Administration Acetaminophen 500 mg 06/26/25 05:45 Acetaminophen 500 Mg Tablet BY MOUTH Q6H PRN PAIN 1-3 OR FEVER Albuterol 2.5 mg 06/26/25 05:14 Albuterol Sulfate Neb 2.5 Mg/3 Ml Inh INHALATION DAILYRT PRN Shortness Of Breath Apixaban 5 mg 06/26/25 09:00 06/28/25 08:13 Apixaban 5 Mg Tablet PO 5 mg Q12HR ZEE Administration Ascorbic Acid 1,000 mg 06/27/25 21:00 06/28/25 08:14 Ascorbic Acid 500 Mg Tablet PO 1,000 mg Q12HR ZEE Administration Atorvastatin Calcium 40 mg 06/27/25 21:00 06/27/25 21:48 Atorvastatin 40 Mg Tablet PO 40 mg HS ZEE Administration Cyclobenzaprine HCl 10 mg 06/26/25 21:00 06/27/25 21:49 Cyclobenzaprine Hcl 10 Mg Tablet PO 10 mg HS ZEE Administration Dextrose 12.5 gm 06/26/25 05:25 Dextrose 50% 25 Gm/50 Ml Syringe IV PUSH PRN PRN Hypoglycemia Protocol Famotidine 20 mg 06/26/25 21:00 06/27/25 21:49 Famotidine 20 Mg Tablet PO 20 mg HS ZEE Administration Ferrous Sulfate 325 mg 06/26/25 09:00 06/28/25 08:14 Ferrous Sulfate 325 Mg Tablet PO 325 mg DAILY ZEE Administration Folic Acid 1 mg 06/26/25 09:00 06/28/25 08:13 Folic Acid 1 Mg Tablet PO 1 mg DAILY ZEE Administration Furosemide 40 mg 06/28/25 09:00 06/28/25 08:13 Furosemide 40 Mg Tablet PO 40 mg DAILY ZEE Administration Gabapentin 300 mg 06/26/25 09:00 06/28/25 13:30 Gabapentin 300 Mg Capsule PO 300 mg TID ZEE Administration Glucagon 1 mg 06/26/25 05:25 Glucagon For Inj 1 Mg Vial IM PRN PRN Hypoglycemia Protocol Glucose 15 gm 06/26/25 05:25 Glucose Oral Gel 15 Gm Of Glucse In 37.5 Gm Tube PO PRN PRN Hypoglycemia Protocol Hydroxychloroquine Sulfate 200 mg 06/26/25 09:00 06/28/25 08:13 Hydroxychloroquine Sulfate 200 Mg Tablet PO 200 mg Q12HR ZEE Administration Dextrose 1,000 mls @ 100 mls/hr 06/26/25 05:25 Dextrose 5% 1,000 Ml IVPB PRN PRN Hypoglycemia Protocol Metronidazole 500 mg in 100 mls @ 100 mls/hr 06/26/25 07:30 06/28/25 13:30 Flagyl 500 Mg/Iso Soln 100 Ml IVPB 100 mls/hr Q8HR ZEE Administration Cefepime HCl 2 gm/ Sodium 50 mls @ 100 mls/hr 06/26/25 11:00 06/28/25 08:15 Chloride IVPB 100 mls/hr Q12HR ZEE Administration Vancomycin HCl 1,500 mg in 500 mls @ 250 mls/hr 06/26/25 23:00 06/28/25 11:24 Vancomycin 1,500 Mg/Ns 500 Ml IVPB 250 mls/hr Q12H ZEE Administration Insulin Aspart 3 - 6 units 06/26/25 08:00 06/28/25 13:29 Insulin Aspart (*Bkc) 100 Units/Ml SUB-Q 5 units TIDWM ZEE Administration Protocol Insulin Aspart 1 - 3 units 06/26/25 21:00 06/27/25 21:57 Insulin Aspart (*Bkc) 100 Units/Ml SUB-Q 3 units HS ZEE Administration Protocol Insulin Aspart 7 units 06/28/25 08:00 06/28/25 13:30 Insulin Aspart (*Bkc) 100 Units/Ml 0.05 units/kg (7 units) 7 units SUB-Q Administration TIDWM ZEE Insulin Glargine 40 units 06/27/25 21:00 06/28/25 08:16 Insulin Glargine (*Bkc) 100 Units/Ml SUB-Q 40 units Q12HR ZEE Administration Lisinopril 20 mg 06/26/25 21:00 06/27/25 21:50 Lisinopril 20 Mg Tablet PO 20 mg HS ZEE Administration Loratadine 10 mg 06/26/25 09:00 06/28/25 08:14 Loratadine 10 Mg Tablet PO 10 mg QAM ZEE Administration Magnesium Oxide 400 mg 06/26/25 21:00 06/27/25 21:49 Magnesium Oxide 400 Mg Tablet PO 400 mg HS ZEE Administration Metoprolol Tartrate 25 mg 06/26/25 09:00 06/28/25 08:14 Metoprolol Tartrate 25 Mg Tablet PO 25 mg Q12HR ZEE Administration Ondansetron HCl 4 mg 06/26/25 00:44 06/26/25 09:11 Ondansetron Inj 4 Mg/2 Ml Vial IV PUSH 4 mg Q4H PRN Administration Nausea Pantoprazole Sodium 40 mg 06/26/25 09:00 06/28/25 08:13 Pantoprazole 40 Mg Tablet PO 40 mg Q12HR ZEE Administration Potassium Chloride 20 meq 06/26/25 09:00 06/28/25 08:13 Potassium Chloride 20 Meq Er Tablet PO 20 meq DAILY ZEE Administration Prednisone 5 mg 06/26/25 08:00 06/28/25 08:14 Prednisone 5 Mg Tablet PO 5 mg DAILY@0800 ZEE Administration Prednisone 40 mg 06/26/25 08:00 06/28/25 08:14 Prednisone 20 Mg Tablet PO 40 mg DAILY@0800 ZEE Administration Fluticasone/Salmeterol 2 puff 06/26/25 08:00 06/28/25 08:05 Fluticasone/Salmeterol 115-21 Mcg Inhaler 1 Puff INHALATION 2 puff Q12HRT ZEE Administration Tramadol HCl 50 mg 06/26/25 05:24 06/28/25 02:39 Tramadol Hcl (*Crx) 50 Mg Tablet PO 50 mg Q4H PRN Administration Pain 7-10 Venlafaxine HCl 150 mg 06/26/25 09:00 06/28/25 08:13 Venlafaxine Hcl Xr 75 Mg Cap.Er.24h PO 150 mg QAM ZEE Administration Radiology Results: ITS Impressions Chest X-Ray 06/26/25 06:18 IMPRESSION: 1. No acute cardiopulmonary findings given portable technique. Chest CTA 06/26/25 06:20 IMPRESSION: 1. No PE or other acute cardiopulmonary findings. Labs Labs: Laboratory Results - last 24 hr 06/27/25 06/27/25 06/27/25 16:49 21:39 22:04 Sodium Potassium Chloride Carbon Dioxide Anion Gap BUN Creatinine Estim Creat Clear Calc Estimated GFR Glucose POC Capillary Glucose 469 H 372 H Calcium Phosphorus Albumin Vancomycin Trough 10.8 06/28/25 06/28/25 06/28/25 04:52 07:32 11:22 Sodium 132 L Potassium 4.0 Chloride 101 Carbon Dioxide 28 Anion Gap 3 L BUN 15 Creatinine 0.79 Estim Creat Clear Calc 112 Estimated GFR > 60 Glucose 224 H POC Capillary Glucose 215 H 312 H Calcium 9.0 Phosphorus 2.8 Albumin 3.6 Vancomycin Trough Quality VTE Prophylaxis VTE prophylaxis: pharmacologic ordered (Continue home Eliquis)
[2025-06-28] MEDS: FUROSEMIDE INJ 40 MG/4 ML VIAL IV PUSH (17:39)
[2025-06-28] MEDS: ATORVASTATIN 40 MG TABLET PO (20:08)
[2025-06-28] MEDS: CYCLOBENZAPRINE HCL 10 MG TABLET PO (20:09)
[2025-06-28] MEDS: MAGNESIUM OXIDE 400 MG TABLET PO (20:09)
[2025-06-28] MEDS: FAMOTIDINE 20 MG TABLET PO (20:10)
[2025-06-29] VITALS (13 sets, daily range): BP systolic 123–152; BP diastolic 67–96; PULSE 87–111; RESP 16–20; TEMP 36.1–36.5; O2SAT 95–100
[2025-06-29 04:51] LABS: Hematocrit 33.8 % (37.0-47.0); Hemoglobin 10.9 g/dL (12.0-15.0); Mean Corpuscular HGB Conc 32.2 g/dl (32-36); Mean Corpuscular Hemoglobin 29.7 pg (26-34); Mean Corpuscular Volume 92.1 fl (80-100); Platelet Count Result 311 k/mm3 (150-375); Red Blood Count 3.67 M/mm3 (4.2-5.4); White Blood Count 10.6 K/mm3 (4.5-10.0)
[2025-06-29] MEDS: metroNIDAZOLE 500 MG/ISO 100ML 500 MG/100 ML BAG 100 MG IVPB ×3 (05:18→21:58)
[2025-06-29 05:59] LABS: Anion Gap 3 mmol/L (4-12); Blood Urea Nitrogen 13 mg/dL (7-17); Calcium 9.2 mg/dL (8.4-10.2); Carbon Dioxide 32 mmol/L (22-30); Chloride 99 mmol/L (98-107); Estimated CRCL calculation 116 ml/min; Estimated Glomerular Filt Rate > 60; Glucose 184 mg/dL (65-110); Potassium 3.6 mmol/L (3.4-5.0); Sodium 134 mmol/L (137-145)
[2025-06-29] MEDS: FLUTICASONE/SALMETEROL 115-21 MCG INHALER 1 PUFF 2 PUFF INHALATION ×2 (08:56→20:45)
[2025-06-29] MEDS: ACETAMINOPHEN 500 MG TABLET 1000 MG PO ×2 (09:18→22:01)
[2025-06-29] MEDS: FUROSEMIDE 40 MG TABLET PO ×2 (09:18→17:38)
[2025-06-29] MEDS: APIXABAN 5 MG TABLET PO ×2 (09:18→22:03)
[2025-06-29] MEDS: LORATADINE 10 MG TABLET PO (09:18)
[2025-06-29] MEDS: FOLIC ACID 1 MG TABLET PO (09:18)
[2025-06-29] MEDS: POTASSIUM CHLORIDE 20 MEQ ER TABLET PO (09:18)
[2025-06-29] MEDS: VENLAFAXINE HCL XR 75 MG CAP.ER.24H 150 MG PO (09:19)
[2025-06-29] MEDS: METOPROLOL TARTRATE 25 MG TABLET PO ×2 (09:19→22:03)
[2025-06-29] MEDS: HYDROXYCHLOROQUINE SULFATE 200 MG TABLET PO ×2 (09:19→22:02)
[2025-06-29] MEDS: FERROUS SULFATE 325 MG TABLET PO (09:19)
[2025-06-29] MEDS: PANTOPRAZOLE 40 MG TABLET PO ×2 (09:19→22:03)
[2025-06-29] MEDS: ASCORBIC ACID 500 MG TABLET 1000 MG PO ×2 (09:19→22:00)
[2025-06-29] MEDS: GABAPENTIN 300 MG CAPSULE PO ×3 (09:19→17:38)
[2025-06-29] MEDS: CEFEPIME 2 GM in SODIUM CHLORIDE 0.9% IV 50 ML 100 ML IVPB ×2 (09:22→21:53)
[2025-06-29] MEDS: INSULIN ASPART (*BKC) 100 UNITS/ML 7 UNITS SUB-Q ×3 (09:31→17:39)
[2025-06-29] MEDS: INSULIN GLARGINE (*BKC) 100 UNITS/ML 40 UNITS SUB-Q ×2 (09:31→21:55)
[2025-06-29] MEDS: VANCOMYCIN 1,500 MG/NS 500 ML 1,500 MG/500 ML BAG 250 MG IVPB ×2 (12:19→23:26)
--- NOTE | 2025-06-29 12:26 | PM.IMPN ---
Progress Note: A&P Assessment and Plan (1) Sepsis: Code(s): A41.9 - Sepsis, unspecified organism Status: Acute Assessment and Plan: SIRS present on admission with sinus tachycardia, elevated WBC and lactic acidosis. Probable sepsis with source being cellulitis Chest CTA showing no PE or other acute cardiopulmonary findings. UA was cloudy with negative LE/N, 6-10 WBC and many squamous cells. Did not reflex to UCx BCx (06/25): NGTD x 24hrs Started on Flagyl/Cefepime/Vanc (06/26) Prednisone continued. Clinically stable so will hold off on stress dose steroids If BCx remain negative x 2days, home with oral abx. (2) Cellulitis: Qualifiers: Site of cellulitis: extremity Site of cellulitis of extremity: lower extremity Laterality: right Qualified Code(s): L03.115 - Cellulitis of right lower limb Code(s): L03.90 - Cellulitis, unspecified Status: Acute Assessment and Plan: As above (3) Acute kidney injury: Code(s): N17.9 - Acute kidney failure, unspecified Status: Acute Assessment and Plan: Mild elevation of admission Cr to 1.08 but normal now Follow (4) Diabetes mellitus, insulin dependent (IDDM), uncontrolled: Status: Chronic Assessment and Plan: The patient's blood glucose was reviewed on 06/29 Glucose better controlled Continue AccuCheks covering with sliding scale. Hypoglycemia protocol available as needed. Continue Lantus and meal time insulin (5) Hyperosmolar hyponatremia: Code(s): E87.0 - Hyperosmolality and hypernatremia; E87.1 - Hypo-osmolality and hyponatremia Status: Acute Assessment and Plan: Sodium 133 on admission. The patient received 3 L of fluid in the ER. Baseline sodium low 130's range. Lasix held and was given IV fluids. Sodium stable. Lasix resumed. Will advance Lasix to BID dosing for a few days Follow (6) Autoimmune disease: Code(s): M35.9 - Systemic involvement of connective tissue, unspecified Status: Chronic Assessment and Plan: Patient has a known autoimmune disorder being followed by Rheumatology. Hydroxychloroquine and chronic prednisone resumed. She states that they are weaning Prednisone but she had symptoms at 35mg daily. 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 Continue CPAP at night and with naps. Plan DVT prophylaxis -Eliquis Code status -full Disp - start PT/OT Subjective Date/time seen: 06/29/25 12:26 Interval history: 50yo female with morbid obesity, JEREMY, possible vasculitis versus nonspecified autoimmune process on chronic high-dose steroids since May 2023, uncontrolled DM treated with insulin therapy, chronic venous stasis dermatitis and recurrent cellulitis who presented to the ER with generalized weakness and generalized pain everywhere. Feeling much better today. Still with the bilateral lower extremity ?tingling? but this feels better as well. Eating okay. Slight headache. She is up walking with PT. Exam Narrative: AF 97.0 125/67 104 18 100% ra Gen - obese female with cushinoid features in NARD Chest - CTA bilaterally, nml RR CV - RRR S1/S2; Tele showing no significant dysrhythmias Abd - Soft, obese, NT, +BS Ext - LE edema persistent but improved Neuro - Alert and oriented. Nonfocal exam. Psych - Nml mood and affect. Skin - chronic venous stasis skin changes bilateral (R>L) LE Objective Data Vital Signs Vital Signs: Vital Signs - 24 hr 06/28/25 14:00 06/28/25 16:00 06/28/25 20:00 Temperature 98 F Pulse Rate 94 96 Respiratory Rate 18 Blood Pressure 122/76 Pulse Oximetry 96 98 Oxygen Delivery Nasal Cannula Oxygen Flow Rate 2 06/28/25 20:00 06/28/25 20:08 06/28/25 21:31 Temperature 97.0 F L Pulse Rate 104 H 86 102 H Respiratory Rate 18 Blood Pressure 111/71 Pulse Oximetry 98 Oxygen Delivery Oxygen Flow Rate 06/28/25 22:45 06/29/25 00:00 06/29/25 03:09 Temperature Pulse Rate 96 96 92 Respiratory Rate Blood Pressure Pulse Oximetry 94 95 Oxygen Delivery Autopap Autopap Oxygen Flow Rate 06/29/25 04:00 06/29/25 06:00 06/29/25 08:00 Temperature 97.0 F L Pulse Rate 91 87 Respiratory Rate 18 Blood Pressure 125/67 Pulse Oximetry 100 Oxygen Delivery Room Air Oxygen Flow Rate 06/29/25 08:00 06/29/25 08:57 06/29/25 09:19 Temperature Pulse Rate 93 95 104 H Respiratory Rate 18 Blood Pressure Pulse Oximetry Oxygen Delivery Oxygen Flow Rate Intake/Output Intake/Output: Intake & Output 06/26/25 06/27/25 06/28/25 06/29/25 23:59 23:59 23:59 23:59 Intake Total 6670 0874 4194 1540 Output Total 1100 1 3 Balance 5570 2584 4189 1540 Meds/Results Medications: Active Medications Generic Name Dose Route Start Last Admin Trade Name Freq PRN Reason Stop Dose Admin Acetaminophen 1,000 mg 06/26/25 09:00 06/29/25 09:18 Acetaminophen 500 Mg Tablet PO 1,000 mg Q12HR ZEE Administration Acetaminophen 500 mg 06/26/25 05:45 Acetaminophen 500 Mg Tablet BY MOUTH Q6H PRN PAIN 1-3 OR FEVER Albuterol 2.5 mg 06/26/25 05:14 Albuterol Sulfate Neb 2.5 Mg/3 Ml Inh INHALATION DAILYRT PRN Shortness Of Breath Apixaban 5 mg 06/26/25 09:00 06/29/25 09:18 Apixaban 5 Mg Tablet PO 5 mg Q12HR ZEE Administration Ascorbic Acid 1,000 mg 06/27/25 21:00 06/29/25 09:19 Ascorbic Acid 500 Mg Tablet PO 1,000 mg Q12HR ZEE Administration Atorvastatin Calcium 40 mg 06/27/25 21:00 06/28/25 20:08 Atorvastatin 40 Mg Tablet PO 40 mg HS ZEE Administration Cyclobenzaprine HCl 10 mg 06/26/25 21:00 06/28/25 20:09 Cyclobenzaprine Hcl 10 Mg Tablet PO 10 mg HS ZEE Administration Dextrose 12.5 gm 06/26/25 05:25 Dextrose 50% 25 Gm/50 Ml Syringe IV PUSH PRN PRN Hypoglycemia Protocol Famotidine 20 mg 06/26/25 21:00 06/28/25 20:10 Famotidine 20 Mg Tablet PO 20 mg HS ZEE Administration Ferrous Sulfate 325 mg 06/26/25 09:00 06/29/25 09:19 Ferrous Sulfate 325 Mg Tablet PO 325 mg DAILY ZEE Administration Folic Acid 1 mg 06/26/25 09:00 06/29/25 09:18 Folic Acid 1 Mg Tablet PO 1 mg DAILY ZEE Administration Furosemide 40 mg 06/28/25 09:00 06/29/25 09:18 Furosemide 40 Mg Tablet PO 40 mg DAILY ZEE Administration Gabapentin 300 mg 06/26/25 09:00 06/29/25 12:20 Gabapentin 300 Mg Capsule PO 300 mg TID ZEE Administration Glucagon 1 mg 06/26/25 05:25 Glucagon For Inj 1 Mg Vial IM PRN PRN Hypoglycemia Protocol Glucose 15 gm 06/26/25 05:25 Glucose Oral Gel 15 Gm Of Glucse In 37.5 Gm Tube PO PRN PRN Hypoglycemia Protocol Hydroxychloroquine Sulfate 200 mg 06/26/25 09:00 06/29/25 09:19 Hydroxychloroquine Sulfate 200 Mg Tablet PO 200 mg Q12HR ZEE Administration Dextrose 1,000 mls @ 100 mls/hr 06/26/25 05:25 Dextrose 5% 1,000 Ml IVPB PRN PRN Hypoglycemia Protocol Metronidazole 500 mg in 100 mls @ 100 mls/hr 06/26/25 07:30 06/29/25 06:18 Flagyl 500 Mg/Iso Soln 100 Ml IVPB Infused Q8HR ZEE Infusion Cefepime HCl 2 gm/ Sodium 50 mls @ 100 mls/hr 06/26/25 11:00 06/29/25 09:22 Chloride IVPB 100 mls/hr Q12HR ZEE Administration Vancomycin HCl 1,500 mg in 500 mls @ 250 mls/hr 06/26/25 23:00 06/29/25 12:19 Vancomycin 1,500 Mg/Ns 500 Ml IVPB 250 mls/hr Q12H ZEE Administration Insulin Aspart 3 - 6 units 06/26/25 08:00 06/29/25 12:20 Insulin Aspart (*Bkc) 100 Units/Ml SUB-Q Not Given TIDWM [facility] Protocol Insulin Aspart 1 - 3 units 06/26/25 21:00 06/28/25 20:53 Insulin Aspart (*Bkc) 100 Units/Ml SUB-Q 2 units HS ZEE Administration Protocol Insulin Aspart 7 units 06/28/25 08:00 06/29/25 12:20 Insulin Aspart (*Bkc) 100 Units/Ml 0.05 units/kg (7 units) 7 units SUB-Q Administration TIDWM [facility] Insulin Glargine 40 units 06/27/25 21:00 06/29/25 09:31 Insulin Glargine (*Bkc) 100 Units/Ml SUB-Q 40 units Q12HR ZEE Administration Lisinopril 20 mg 06/26/25 21:00 06/28/25 20:08 Lisinopril 20 Mg Tablet PO 20 mg HS ZEE Administration Loratadine 10 mg 06/26/25 09:00 06/29/25 09:18 Loratadine 10 Mg Tablet PO 10 mg QAM ZEE Administration Magnesium Oxide 400 mg 06/26/25 21:00 06/28/25 20:09 Magnesium Oxide 400 Mg Tablet PO 400 mg HS ZEE Administration Metoprolol Tartrate 25 mg 06/26/25 09:00 06/29/25 09:19 Metoprolol Tartrate 25 Mg Tablet PO 25 mg Q12HR ZEE Administration Ondansetron HCl 4 mg 06/26/25 00:44 06/26/25 09:11 Ondansetron Inj 4 Mg/2 Ml Vial IV PUSH 4 mg Q4H PRN Administration Nausea Pantoprazole Sodium 40 mg 06/26/25 09:00 06/29/25 09:19 Pantoprazole 40 Mg Tablet PO 40 mg Q12HR ZEE Administration Potassium Chloride 20 meq 06/26/25 09:00 06/29/25 09:18 Potassium Chloride 20 Meq Er Tablet PO 20 meq DAILY EZE Administration Prednisone 5 mg 06/26/25 08:00 06/29/25 09:18 Prednisone 5 Mg Tablet PO 5 mg DAILY@0800 ZEE Administration Prednisone 40 mg 06/26/25 08:00 06/29/25 09:18 Prednisone 20 Mg Tablet PO 40 mg DAILY@0800 ZEE Administration Fluticasone/Salmeterol 2 puff 06/26/25 08:00 06/29/25 08:56 Fluticasone/Salmeterol 115-21 Mcg Inhaler 1 Puff INHALATION 2 puff Q12HRT ZEE Administration Tramadol HCl 50 mg 06/26/25 05:24 06/28/25 02:39 Tramadol Hcl (*Crx) 50 Mg Tablet PO 50 mg Q4H PRN Administration Pain 7-10 Venlafaxine HCl 150 mg 06/26/25 09:00 06/29/25 09:19 Venlafaxine Hcl Xr 75 Mg Cap.Er.24h PO 150 mg QAM ZEE Administration Radiology Results: ITS Impressions Chest X-Ray 06/26/25 06:18 IMPRESSION: 1. No acute cardiopulmonary findings given portable technique. Chest CTA 06/26/25 06:20 IMPRESSION: 1. No PE or other acute cardiopulmonary findings. Labs Labs: Laboratory Results - last 24 hr 06/28/25 06/28/25 06/29/25 16:23 20:32 04:31 WBC 10.6 H RBC 3.67 L Hgb 10.9 L Hct 33.8 L MCV 92.1 MCH 29.7 MCHC 32.2 RDW 16.3 H Plt Count 311 MPV 10.5 H Sodium 134 L Potassium 3.6 Chloride 99 Carbon Dioxide 32 H Anion Gap 3 L BUN 13 Creatinine 0.76 Estim Creat Clear Calc 116 Estimated GFR > 60 Glucose 184 H POC Capillary Glucose 378 H 315 H Calcium 9.2 06/29/25 06/29/25 07:55 11:45 WBC RBC Hgb Hct MCV MCH MCHC RDW Plt Count MPV Sodium Potassium Chloride Carbon Dioxide Anion Gap BUN Creatinine Estim Creat Clear Calc Estimated GFR Glucose POC Capillary Glucose 155 H 195 H Calcium
[2025-06-29] MEDS: traMADol HCL (*CRX) 50 MG TABLET PO (14:52)
[2025-06-29] MEDS: INSULIN ASPART (*BKC) 100 UNITS/ML SUB-Q ×2 (17:38→21:56)
[2025-06-29] MEDS: MAGNESIUM OXIDE 400 MG TABLET PO (22:03)
[2025-06-29] MEDS: ATORVASTATIN 40 MG TABLET PO (22:03)
[2025-06-29] MEDS: FAMOTIDINE 20 MG TABLET PO (22:04)
[2025-06-29] MEDS: CYCLOBENZAPRINE HCL 10 MG TABLET PO (22:04)
[2025-06-30] VITALS (9 sets, daily range): BP systolic 134–141; BP diastolic 79–86; PULSE 68–102; RESP 16–20; TEMP 35.7–36.8; O2SAT 92–98
[2025-06-30] MEDS: metroNIDAZOLE 500 MG/ISO 100ML 500 MG/100 ML BAG 100 MG IVPB ×3 (05:38→21:18)
[2025-06-30 06:51] LABS: Anion Gap 5 mmol/L (4-12); Blood Urea Nitrogen 16 mg/dL (7-17); Calcium 9.2 mg/dL (8.4-10.2); Carbon Dioxide 35 mmol/L (22-30); Chloride 96 mmol/L (98-107); Estimated CRCL calculation 116 ml/min; Estimated Glomerular Filt Rate > 60; Glucose 211 mg/dL (65-110); Potassium 3.8 mmol/L (3.4-5.0); Sodium 136 mmol/L (137-145)
[2025-06-30] MEDS: FLUTICASONE/SALMETEROL 115-21 MCG INHALER 1 PUFF 2 PUFF INHALATION ×2 (07:28→21:30)
[2025-06-30] MEDS: POTASSIUM CHLORIDE 20 MEQ ER TABLET PO (08:38)
[2025-06-30] MEDS: FUROSEMIDE 40 MG TABLET PO ×2 (08:39→17:21)
[2025-06-30] MEDS: ASCORBIC ACID 500 MG TABLET 1000 MG PO ×2 (08:39→21:20)
[2025-06-30] MEDS: FERROUS SULFATE 325 MG TABLET PO (08:39)
[2025-06-30] MEDS: FOLIC ACID 1 MG TABLET PO (08:39)
[2025-06-30] MEDS: GABAPENTIN 300 MG CAPSULE PO ×3 (08:39→17:21)
[2025-06-30] MEDS: APIXABAN 5 MG TABLET PO ×2 (08:39→21:20)
[2025-06-30] MEDS: ACETAMINOPHEN 500 MG TABLET 1000 MG PO ×2 (08:39→21:19)
[2025-06-30] MEDS: METOPROLOL TARTRATE 25 MG TABLET PO ×2 (08:40→21:19)
[2025-06-30] MEDS: HYDROXYCHLOROQUINE SULFATE 200 MG TABLET PO ×2 (08:41→21:20)
[2025-06-30] MEDS: INSULIN ASPART (*BKC) 100 UNITS/ML 7 UNITS SUB-Q ×3 (08:41→17:21)
[2025-06-30] MEDS: LORATADINE 10 MG TABLET PO (08:41)
[2025-06-30] MEDS: PANTOPRAZOLE 40 MG TABLET PO ×2 (08:41→21:21)
[2025-06-30] MEDS: CEFEPIME 2 GM in SODIUM CHLORIDE 0.9% IV 50 ML 100 ML IVPB ×2 (08:43→21:16)
[2025-06-30] MEDS: INSULIN GLARGINE (*BKC) 100 UNITS/ML 40 UNITS SUB-Q ×2 (08:47→21:21)
[2025-06-30] MEDS: VENLAFAXINE HCL XR 75 MG CAP.ER.24H 150 MG PO (08:51)
[2025-06-30] MEDS: VANCOMYCIN 1,500 MG/NS 500 ML 1,500 MG/500 ML BAG 250 MG IVPB ×2 (10:59→23:15)
--- NOTE | 2025-06-30 11:02 | P.PNIM_ITS ---
Progress Note: A&P Assessment and Plan (1) Sepsis: Code(s): A41.9 - Sepsis, unspecified organism Status: Acute Assessment and Plan: SIRS present on admission with sinus tachycardia, elevated WBC and lactic acid osis. Probable sepsis with source being cellulitis Chest CTA showing no PE or other acute cardiopulmonary findings. UA was cloudy with negative LE/N, 6-10 WBC and many squamous cells. Did not reflex to UCx BCx (06/25): NGTD x 24hrs Started on Flagyl/Cefepime/Vanc (06/26) Prednisone continued. Clinically stable so will hold off on stress dose steroids If BCx remain negative x 2days, home with oral abx. (2) Cellulitis: Qualifiers: Site of cellulitis: extremity Site of cellulitis of extremity: lower extremity Laterality: right Qualified Code(s): L03.115 - Cellulitis of right lower limb Code(s): L03.90 - Cellulitis, unspecified Status: Acute Assessment and Plan: As above (3) Acute kidney injury: Code(s): N17.9 - Acute kidney failure, unspecified Status: Acute Assessment and Plan: Mild elevation of admission Cr to 1.08 but normal now Follow (4) Diabetes mellitus, insulin dependent (IDDM), uncontrolled: Status: Chronic Assessment and Plan: Continue AccuCheks covering with sliding scale. Hypoglycemia protocol available as needed. Continue Lantus and meal time insulin (5) Hyperosmolar hyponatremia: Code(s): E87.0 - Hyperosmolality and hypernatremia; E87.1 - Hypo-osmolality and hyponatremia Status: Acute Assessment and Plan: Sodium 133 on admission. The patient received 3 L of fluid in the ER. Baseline sodium low 130's range. Lasix held and was given IV fluids. Sodium stable. Lasix resumed. Will advance Lasix to BID dosing for a few days Follow Echo 08/27: Grade 1 diastolic dysfunction EF 60-65%. No significant valvular abnormality, no pulmonary hypertension. (6) Autoimmune disease: Code(s): M35.9 - Systemic involvement of connective tissue, unspecified Status: Chronic Assessment and Plan: Patient has a known autoimmune disorder being followed by Rheumatology. Hydroxychloroquine and chronic prednisone resumed. She states that they are weaning Prednisone but she had symptoms at 35mg daily. She is on 45mg daily here so will cut back to 40mg daily but then hold until she sees her [employer] Attendant Follow (7) JEREMY on CPAP: Code(s): G47.33 - Obstructive sleep apnea (adult) (pediatric) Status: Chronic Assessment and Plan: ABG noted. Continue CPAP at night and with naps. Plan DVT prophylaxis -Eliquis Code status -full Disp - start PT/OT Subjective Date/time seen: 06/30/25 11:02 Interval history: No overnight events. Discussed the nursing staff. Labs reviewed. Feels overall better. Redness of the legs have improved. 50yo female with morbid obesity, JEREMY, possible vasculitis versus nonspecified autoimmune process on chronic high-dose steroids since May 2023, uncontrolled DM treated with insulin therapy, chronic venous stasis dermatitis and recurrent cellulitis who presented to the ER with generalized weakness and generalized pain everywhere. Delete Review of Systems Review of Systems: All systems reviewed & are unremarkable except as noted in HPI and below Exam Narrative: Gen - obese female with cushinoid features in NARD Chest - CTA bilaterally, nml RR CV - RRR S1/S2; Tele showing no significant dysrhythmias Abd - Soft, obese, NT, +BS Ext - LE edema persistent but improved Neuro - Alert and oriented. Nonfocal exam. Psych - Nml mood and affect. Skin - chronic venous stasis skin changes bilateral (R>L) LE Objective Data Vital Signs Vital Signs: Vital Signs - 24 hr 06/29/25 12:00 06/29/25 14:00 06/29/25 20:45 Temperature 97.7 F Pulse Rate 99 91 111 H Respiratory Rate 16 20 Blood Pressure 123/91 H Pulse Oximetry 100 Oxygen Delivery Oxygen Flow Rate Fraction of Inspired Oxygen 06/29/25 20:52 06/29/25 21:00 06/29/25 22:00 Temperature 97.2 F L Pulse Rate 111 H 105 H Respiratory Rate 20 18 Blood Pressure 152/96 H Pulse Oximetry 97 96 Oxygen Delivery Nasal Cannula Room Air Oxygen Flow Rate 2 Fraction of Inspired Oxygen 06/29/25 22:03 06/30/25 04:34 06/30/25 05:34 Temperature 97.1 F L Pulse Rate 105 H 95 68 Respiratory Rate 16 Blood Pressure 141/83 H Pulse Oximetry 95 98 Oxygen Delivery Autopap Oxygen Flow Rate Fraction of Inspired Oxygen 06/30/25 07:31 06/30/25 07:31 06/30/25 08:00 Temperature Pulse Rate 95 95 Respiratory Rate 20 20 Blood Pressure Pulse Oximetry 94 Oxygen Delivery Room Air Room Air Oxygen Flow Rate Fraction of Inspired Oxygen 06/30/25 08:11 06/30/25 08:40 Temperature Pulse Rate 100 Respiratory Rate Blood Pressure Pulse Oximetry Oxygen Delivery Room Air Oxygen Flow Rate Fraction of Inspired Oxygen Intake/Output Intake/Output: Intake & Output 06/27/25 06/28/25 06/29/25 06/30/25 23:59 23:59 23:59 23:59 Intake Total 2585 4192 3200 1040 Output Total 1 3 Balance 2584 4189 3200 1040 Meds/Results Medications: Active Medications Generic Name Dose Route Start Last Admin Trade Name Freq PRN Reason Stop Dose Admin Acetaminophen 1,000 mg 06/26/25 09:00 06/30/25 08:39 Acetaminophen 500 Mg Tablet PO 1,000 mg Q12HR ZEE Administration Acetaminophen 500 mg 06/26/25 05:45 Acetaminophen 500 Mg Tablet BY MOUTH Q6H PRN PAIN 1-3 OR FEVER Albuterol 2.5 mg 06/26/25 05:14 Albuterol Sulfate Neb 2.5 Mg/3 Ml Inh INHALATION DAILYRT PRN Shortness Of Breath Apixaban 5 mg 06/26/25 09:00 06/30/25 08:39 Apixaban 5 Mg Tablet PO 5 mg Q12HR ZEE Administration Ascorbic Acid 1,000 mg 06/27/25 21:00 06/30/25 08:39 Ascorbic Acid 500 Mg Tablet PO 1,000 mg Q12HR ZEE Administration Atorvastatin Calcium 40 mg 06/27/25 21:00 06/29/25 22:03 Atorvastatin 40 Mg Tablet PO 40 mg HS ZEE Administration Cyclobenzaprine HCl 10 mg 06/26/25 21:00 06/29/25 22:04 Cyclobenzaprine Hcl 10 Mg Tablet PO 10 mg HS ZEE Administration Dextrose 12.5 gm 06/26/25 05:25 Dextrose 50% 25 Gm/50 Ml Syringe IV PUSH PRN PRN Hypoglycemia Protocol Famotidine 20 mg 06/26/25 21:00 06/29/25 22:04 Famotidine 20 Mg Tablet PO 20 mg HS ZEE Administration Ferrous Sulfate 325 mg 06/26/25 09:00 06/30/25 08:39 Ferrous Sulfate 325 Mg Tablet PO 325 mg DAILY ZEE Administration Folic Acid 1 mg 06/26/25 09:00 06/30/25 08:39 Folic Acid 1 Mg Tablet PO 1 mg DAILY ZEE Administration Furosemide 40 mg 06/29/25 17:00 06/30/25 08:39 Furosemide 40 Mg Tablet PO 40 mg BID ZEE Administration Gabapentin 300 mg 06/26/25 09:00 06/30/25 08:39 Gabapentin 300 Mg Capsule PO 300 mg TID ZEE Administration Glucagon 1 mg 06/26/25 05:25 Glucagon For Inj 1 Mg Vial IM PRN PRN Hypoglycemia Protocol Glucose 15 gm 06/26/25 05:25 Glucose Oral Gel 15 Gm Of Glucse In 37.5 Gm Tube PO PRN PRN Hypoglycemia Protocol Hydroxychloroquine Sulfate 200 mg 06/26/25 09:00 06/30/25 08:41 Hydroxychloroquine Sulfate 200 Mg Tablet PO 200 mg Q12HR ZEE Administration Dextrose 1,000 mls @ 100 mls/hr 06/26/25 05:25 Dextrose 5% 1,000 Ml IVPB PRN PRN Hypoglycemia Protocol Metronidazole 500 mg in 100 mls @ 100 mls/hr 06/26/25 07:30 06/30/25 05:38 Flagyl 500 Mg/Iso Soln 100 Ml IVPB 100 mls/hr Q8HR ZEE Administration Cefepime HCl 2 gm/ Sodium 50 mls @ 100 mls/hr 06/26/25 11:00 06/30/25 08:43 Chloride IVPB 100 mls/hr Q12HR ZEE Administration Vancomycin HCl 1,500 mg in 500 mls @ 250 mls/hr 06/26/25 23:00 06/30/25 01:30 Vancomycin 1,500 Mg/Ns 500 Ml IVPB Infused Q12H ZEE Infusion Insulin Aspart 3 - 6 units 06/26/25 08:00 06/30/25 08:41 Insulin Aspart (*Bkc) 100 Units/Ml SUB-Q Not Given TIDWM [facility] Protocol Insulin Aspart 1 - 3 units 06/26/25 21:00 06/29/25 21:56 Insulin Aspart (*Bkc) 100 Units/Ml SUB-Q 3 units HS ZEE Administration Protocol Insulin Aspart 7 units 06/28/25 08:00 06/30/25 08:41 Insulin Aspart (*Bkc) 100 Units/Ml 0.05 units/kg (7 units) 7 units SUB-Q Administration TIDWM ZEE Insulin Glargine 40 units 06/27/25 21:00 06/30/25 08:47 Insulin Glargine (*Bkc) 100 Units/Ml SUB-Q 40 units Q12HR ZEE Administration Lisinopril 20 mg 06/26/25 21:00 06/29/25 22:02 Lisinopril 20 Mg Tablet PO 20 mg HS ZEE Administration Loratadine 10 mg 06/26/25 09:00 06/30/25 08:41 Loratadine 10 Mg Tablet PO 10 mg QAM ZEE Administration Magnesium Oxide 400 mg 06/26/25 21:00 06/29/25 22:03 Magnesium Oxide 400 Mg Tablet PO 400 mg HS [facility] Administration Metoprolol Tartrate 25 mg 06/26/25 09:00 06/30/25 08:40 Metoprolol Tartrate 25 Mg Tablet PO 25 mg Q12HR ZEE Administration Ondansetron HCl 4 mg 06/26/25 00:44 06/26/25 09:11 Ondansetron Inj 4 Mg/2 Ml Vial IV PUSH 4 mg Q4H PRN Administration Nausea Pantoprazole Sodium 40 mg 06/26/25 09:00 06/30/25 08:41 Pantoprazole 40 Mg Tablet PO 40 mg Q12HR [facility] Administration Potassium Chloride 20 meq 06/26/25 09:00 06/30/25 08:38 Potassium Chloride 20 Meq Er Tablet PO 20 meq DAILY ZEE Administration Prednisone 40 mg 06/26/25 08:00 06/30/25 08:39 Prednisone 20 Mg Tablet PO 40 mg DAILY@0800 ZEE Administration Fluticasone/Salmeterol 2 puff 06/26/25 08:00 06/30/25 07:28 Fluticasone/Salmeterol 115-21 Mcg Inhaler 1 Puff INHALATION 2 puff Q12HRT [facility] Administration Tramadol HCl 50 mg 06/26/25 05:24 06/29/25 14:52 Tramadol Hcl (*Crx) 50 Mg Tablet PO 50 mg Q4H PRN Administration Pain 7-10 Venlafaxine HCl 150 mg 06/26/25 09:00 06/30/25 08:51 Venlafaxine Hcl Xr 75 Mg Cap.Er.24h PO 150 mg QAM [facility] Administration Radiology Results: ITS Impressions Chest X-Ray 06/26/25 06:18 IMPRESSION: 1. No acute cardiopulmonary findings given portable technique. Chest CTA 06/26/25 06:20 IMPRESSION: 1. No PE or other acute cardiopulmonary findings. Labs Labs: Laboratory Results - last 24 hr 06/29/25 06/29/25 06/29/25 11:45 17:00 21:45 Sodium Potassium Chloride Carbon Dioxide Anion Gap BUN Creatinine Estim Creat Clear Calc Estimated GFR Glucose POC Capillary Glucose 195 H 383 H 406 H Calcium Vancomycin Trough 06/30/25 06/30/25 06/30/25 05:33 07:39 09:43 Sodium 136 L Potassium 3.8 Chloride 96 L Carbon Dioxide 35 H Anion Gap 5 BUN 16 Creatinine 0.76 Estim Creat Clear Calc 116 Estimated GFR > 60 Glucose 211 H POC Capillary Glucose 195 H Calcium 9.2 Vancomycin Trough 12.7
[2025-06-30] MEDS: INSULIN ASPART (*BKC) 100 UNITS/ML SUB-Q ×2 (17:22→21:27)
[2025-06-30] MEDS: MAGNESIUM OXIDE 400 MG TABLET PO (21:19)
[2025-06-30] MEDS: ATORVASTATIN 40 MG TABLET PO (21:19)
[2025-06-30] MEDS: FAMOTIDINE 20 MG TABLET PO (21:19)
[2025-06-30] MEDS: CYCLOBENZAPRINE HCL 10 MG TABLET PO (21:20)
[2025-06-30] MEDS: ACETAMINOPHEN 500 MG TABLET BY MOUTH (23:14)
[2025-07-01] VITALS (8 sets, daily range): BP systolic 115–166; BP diastolic 78–90; PULSE 64–113; RESP 18; TEMP 35.6–36.3; O2SAT 94–98
[2025-07-01] MEDS: traMADol HCL (*CRX) 50 MG TABLET PO (01:55)
[2025-07-01 06:05] LABS: Hematocrit 35.3 % (37.0-47.0); Hemoglobin 11.2 g/dL (12.0-15.0); Immature Granulocyte Percent A 2.2 % (0-0.5); Lymphocytes Absolute Auto 2.31 K/mm3 (0.9-3.2); Mean Corpuscular HGB Conc 31.7 g/dl (32-36); Mean Corpuscular Hemoglobin 29.6 pg (26-34); Mean Corpuscular Volume 93.4 fl (80-100); Nucleated Red Blood Cells Absolute Auto 0.020 K/mm3 (0.0-0.012); Nucleated Red Blood Cells Perc 0.2 % (0.0-0.2); Platelet Count Result 359 k/mm3 (150-375); Red Blood Count 3.78 M/mm3 (4.2-5.4); White Blood Count 11.8 K/mm3 (4.5-10.0)
[2025-07-01 06:18] LABS: Alanine Aminotransferase 57 U/L (6-35); Albumin Level 3.7 g/dL (3.5-5.1); Alkaline Phosphatase 69 U/L (38-126); Anion Gap 5 mmol/L (4-12); Aspartate Amino Transferase 24 U/L (14-36); Bilirubin,Total 0.4 mg/dL (0.2-1.3); Blood Urea Nitrogen 15 mg/dL (7-17); Calcium 9.1 mg/dL (8.4-10.2); Carbon Dioxide 34 mmol/L (22-30); Chloride 96 mmol/L (98-107); Estimated CRCL calculation 117 ml/min; Estimated Glomerular Filt Rate > 60; Glucose 131 mg/dL (65-110); Magnesium 1.9 mg/dL (1.6-2.3); Potassium 3.3 mmol/L (3.4-5.0); Sodium 135 mmol/L (137-145); Total Protein 6.3 g/dL (6.3-8.2)
[2025-07-01] MEDS: metroNIDAZOLE 500 MG/ISO 100ML 500 MG/100 ML BAG 100 MG IVPB (06:23)
[2025-07-01] MEDS: FLUTICASONE/SALMETEROL 115-21 MCG INHALER 1 PUFF 2 PUFF INHALATION ×2 (08:23→20:28)
[2025-07-01] MEDS: ASCORBIC ACID 500 MG TABLET 1000 MG PO ×2 (08:34→21:03)
[2025-07-01] MEDS: VENLAFAXINE HCL XR 75 MG CAP.ER.24H 150 MG PO (08:34)
[2025-07-01] MEDS: LORATADINE 10 MG TABLET PO (08:34)
[2025-07-01] MEDS: FOLIC ACID 1 MG TABLET PO (08:34)
[2025-07-01] MEDS: METOPROLOL TARTRATE 25 MG TABLET PO ×2 (08:34→21:04)
[2025-07-01] MEDS: APIXABAN 5 MG TABLET PO ×2 (08:34→21:04)
[2025-07-01] MEDS: HYDROXYCHLOROQUINE SULFATE 200 MG TABLET PO ×2 (08:34→21:06)
[2025-07-01] MEDS: GABAPENTIN 300 MG CAPSULE PO ×3 (08:35→16:55)
[2025-07-01] MEDS: ACETAMINOPHEN 500 MG TABLET 1000 MG PO ×2 (08:36→21:05)
[2025-07-01] MEDS: POTASSIUM CHLORIDE 20 MEQ ER TABLET PO (08:36)
[2025-07-01] MEDS: FUROSEMIDE 40 MG TABLET PO ×2 (08:36→16:55)
[2025-07-01] MEDS: INSULIN ASPART (*BKC) 100 UNITS/ML 7 UNITS SUB-Q ×3 (08:36→17:45)
[2025-07-01] MEDS: INSULIN GLARGINE (*BKC) 100 UNITS/ML 40 UNITS SUB-Q ×2 (08:36→20:52)
[2025-07-01] MEDS: FERROUS SULFATE 325 MG TABLET PO (08:36)
[2025-07-01] MEDS: CEFEPIME 2 GM in SODIUM CHLORIDE 0.9% IV 50 ML 100 ML IVPB (08:40)
[2025-07-01] MEDS: PANTOPRAZOLE 40 MG TABLET PO ×2 (08:42→21:07)
[2025-07-01] MEDS: VANCOMYCIN 1,500 MG/NS 500 ML 1,500 MG/500 ML BAG 250 MG IVPB (09:59)
--- NOTE | 2025-07-01 12:36 | PM.IMPN ---
Progress Note: A&P Assessment and Plan (1) Sepsis: Code(s): A41.9 - Sepsis, unspecified organism Status: Acute Assessment and Plan: SIRS present on admission with sinus tachycardia, elevated WBC and lactic acidosis. Probable sepsis with source being cellulitis Chest CTA showing no PE or other acute cardiopulmonary findings. UA was cloudy with negative LE/N, 6-10 WBC and many squamous cells. Did not reflex to UCx BCx (06/25): NGTD x 24hrs Started on Flagyl/Cefepime/Vanc (06/26) Prednisone continued. Clinically stable so will hold off on stress dose steroids Blood culture negative to date. Will switch to oral antibiotics today. WBC count slightly up today will recheck in a.m.. (2) Cellulitis: Qualifiers: Site of cellulitis: extremity Site of cellulitis of extremity: lower extremity Laterality: right Qualified Code(s): L03.115 - Cellulitis of right lower limb Code(s): L03.90 - Cellulitis, unspecified Status: Acute Assessment and Plan: As above (3) Acute kidney injury: Code(s): N17.9 - Acute kidney failure, unspecified Status: Acute Assessment and Plan: Mild elevation of admission Cr to 1.08 but normal now Follow (4) Diabetes mellitus, insulin dependent (IDDM), uncontrolled: Status: Chronic Assessment and Plan: Continue AccuCheks covering with sliding scale. Hypoglycemia protocol available as needed. Continue Lantus and meal time insulin (5) Hyperosmolar hyponatremia: Code(s): E87.0 - Hyperosmolality and hypernatremia; E87.1 - Hypo-osmolality and hyponatremia Status: Acute Assessment and Plan: Sodium 133 on admission. The patient received 3 L of fluid in the ER. Baseline sodium low 130's range. Lasix held and was given IV fluids. Sodium stable. Lasix resumed. Will advance Lasix to BID dosing for a few days Follow Echo 08/27: Grade 1 diastolic dysfunction EF 60-65%. No significant valvular abnormality, no pulmonary hypertension. (6) Autoimmune disease: Code(s): M35.9 - Systemic involvement of connective tissue, unspecified Status: Chronic Assessment and Plan: Patient has a known autoimmune disorder being followed by Rheumatology. Hydroxychloroquine and chronic prednisone resumed. She states that they are weaning Prednisone but she had symptoms at 35mg daily. She is on 45mg daily here so will cut back to 40mg daily but then hold until she sees her Transportation Refrigeration Technician Follow (7) JEREMY on CPAP: Code(s): G47.33 - Obstructive sleep apnea (adult) (pediatric) Status: Chronic Assessment and Plan: ABG noted. Continue CPAP at night and with naps. Plan DVT prophylaxis -Eliquis Code status -full Disp - start PT/OT Subjective Date/time seen: 07/01/25 12:36 Interval history: No overnight events. Redness of the legs are improving. DVT scan was negative. Reviewed with the patient. Remains afebrile. Labs reviewed Review of Systems Review of Systems: All systems reviewed & are unremarkable except as noted in HPI and below Exam Narrative: Gen - obese female with cushinoid features in NARD Chest - CTA bilaterally, nml RR CV - RRR S1/S2; Tele showing no significant dysrhythmias Abd - Soft, obese, NT, +BS Ext - LE edema persistent but improved Neuro - Alert and oriented. Nonfocal exam. Psych - Nml mood and affect. Skin - chronic venous stasis skin changes bilateral (R>L) LE Objective Data Vital Signs Vital Signs: Vital Signs - 24 hr 06/30/25 14:00 06/30/25 20:00 06/30/25 21:12 Temperature 96.2 F L 98.2 F Pulse Rate 94 102 H Respiratory Rate 18 18 Blood Pressure 134/86 135/79 Pulse Oximetry 96 92 Oxygen Delivery Room Air 06/30/25 21:19 06/30/25 21:44 06/30/25 22:40 Temperature Pulse Rate 84 98 Respiratory Rate Blood Pressure Pulse Oximetry 94 95 Oxygen Delivery Room Air 07/01/25 06:00 07/01/25 08:00 07/01/25 08:25 Temperature 97.4 F L Pulse Rate 88 Respiratory Rate 18 Blood Pressure 119/78 Pulse Oximetry 98 96 Oxygen Delivery Room Air Room Air 07/01/25 08:34 Temperature Pulse Rate 95 Respiratory Rate Blood Pressure Pulse Oximetry Oxygen Delivery Intake/Output Intake/Output: Intake & Output 06/28/25 06/29/25 06/30/25 07/01/25 23:59 23:59 23:59 23:59 Intake Total 4192 3200 2180 990 Output Total 3 Balance 4189 3200 2180 990 Meds/Results Medications: Active Medications Generic Name Dose Route Start Last Admin Trade Name David PRN Reason Stop Dose Admin Acetaminophen 1,000 mg 06/26/25 09:00 07/01/25 08:36 Acetaminophen 500 Mg Tablet PO 1,000 mg Q12HR ZEE Administration Acetaminophen 500 mg 06/26/25 05:45 06/30/25 23:14 Acetaminophen 500 Mg Tablet BY MOUTH 500 mg Q6H PRN Administration PAIN 1-3 OR FEVER Albuterol 2.5 mg 06/26/25 05:14 Albuterol Sulfate Neb 2.5 Mg/3 Ml Inh INHALATION DAILYRT PRN Shortness Of Breath Apixaban 5 mg 06/26/25 09:00 07/01/25 08:34 Apixaban 5 Mg Tablet PO 5 mg Q12HR ZEE Administration Ascorbic Acid 1,000 mg 06/27/25 21:00 07/01/25 08:34 Ascorbic Acid 500 Mg Tablet PO 1,000 mg Q12HR ZEE Administration Atorvastatin Calcium 40 mg 06/27/25 21:00 06/30/25 21:19 Atorvastatin 40 Mg Tablet PO 40 mg HS ZEE Administration Cyclobenzaprine HCl 10 mg 06/26/25 21:00 06/30/25 21:20 Cyclobenzaprine Hcl 10 Mg Tablet PO 10 mg HS ZEE Administration Dextrose 12.5 gm 06/26/25 05:25 Dextrose 50% 25 Gm/50 Ml Syringe IV PUSH PRN PRN Hypoglycemia Protocol Famotidine 20 mg 06/26/25 21:00 06/30/25 21:19 Famotidine 20 Mg Tablet PO 20 mg HS ZEE Administration Ferrous Sulfate 325 mg 06/26/25 09:00 07/01/25 08:36 Ferrous Sulfate 325 Mg Tablet PO 325 mg DAILY ZEE Administration Folic Acid 1 mg 06/26/25 09:00 07/01/25 08:34 Folic Acid 1 Mg Tablet PO 1 mg DAILY ZEE Administration Furosemide 40 mg 06/29/25 17:00 07/01/25 08:36 Furosemide 40 Mg Tablet PO 40 mg BID ZEE Administration Gabapentin 300 mg 06/26/25 09:00 07/01/25 12:13 Gabapentin 300 Mg Capsule PO 300 mg TID ZEE Administration Glucagon 1 mg 06/26/25 05:25 Glucagon For Inj 1 Mg Vial IM PRN PRN Hypoglycemia Protocol Glucose 15 gm 06/26/25 05:25 Glucose Oral Gel 15 Gm Of Glucse In 37.5 Gm Tube PO PRN PRN Hypoglycemia Protocol Hydroxychloroquine Sulfate 200 mg 06/26/25 09:00 07/01/25 08:34 Hydroxychloroquine Sulfate 200 Mg Tablet PO 200 mg Q12HR ZEE Administration Dextrose 1,000 mls @ 100 mls/hr 06/26/25 05:25 Dextrose 5% 1,000 Ml IVPB PRN PRN Hypoglycemia Protocol Metronidazole 500 mg in 100 mls @ 100 mls/hr 06/26/25 07:30 07/01/25 06:23 Flagyl 500 Mg/Iso Soln 100 Ml IVPB 100 mls/hr Q8HR ZEE Administration Cefepime HCl 2 gm/ Sodium 50 mls @ 100 mls/hr 06/26/25 11:00 07/01/25 09:15 Chloride IVPB Infused Q12HR ZEE Infusion Vancomycin HCl 1,500 mg in 500 mls @ 250 mls/hr 06/26/25 23:00 07/01/25 09:59 Vancomycin 1,500 Mg/Ns 500 Ml IVPB 250 mls/hr Q12H ZEE Administration Insulin Aspart 3 - 6 units 06/26/25 08:00 07/01/25 12:05 Insulin Aspart (*Bkc) 100 Units/Ml SUB-Q Not Given TIDWM [facility] Protocol Insulin Aspart 1 - 3 units 06/26/25 21:00 06/30/25 21:27 Insulin Aspart (*Bkc) 100 Units/Ml SUB-Q 1 units HS ZEE Administration Protocol Insulin Aspart 7 units 06/28/25 08:00 07/01/25 12:13 Insulin Aspart (*Bkc) 100 Units/Ml 0.05 units/kg (7 units) 7 units SUB-Q Administration TIDWM [facility] Insulin Glargine 40 units 06/27/25 21:00 07/01/25 08:36 Insulin Glargine (*Bkc) 100 Units/Ml SUB-Q 40 units Q12HR ZEE Administration Lisinopril 20 mg 06/26/25 21:00 06/30/25 21:21 Lisinopril 20 Mg Tablet PO 20 mg HS ZEE Administration Loratadine 10 mg 06/26/25 09:00 07/01/25 08:34 Loratadine 10 Mg Tablet PO 10 mg QAM ZEE Administration Magnesium Oxide 400 mg 06/26/25 21:00 06/30/25 21:19 Magnesium Oxide 400 Mg Tablet PO 400 mg HS ZEE Administration Metoprolol Tartrate 25 mg 06/26/25 09:00 07/01/25 08:34 Metoprolol Tartrate 25 Mg Tablet PO 25 mg Q12HR ZEE Administration Ondansetron HCl 4 mg 06/26/25 00:44 06/26/25 09:11 Ondansetron Inj 4 Mg/2 Ml Vial IV PUSH 4 mg Q4H PRN Administration Nausea Pantoprazole Sodium 40 mg 06/26/25 09:00 07/01/25 08:42 Pantoprazole 40 Mg Tablet PO 40 mg Q12HR ZEE Administration Potassium Chloride 20 meq 06/26/25 09:00 07/01/25 08:36 Potassium Chloride 20 Meq Er Tablet PO 20 meq DAILY ZEE Administration Prednisone 40 mg 06/26/25 08:00 07/01/25 08:33 Prednisone 20 Mg Tablet PO 40 mg DAILY@0800 ZEE Administration Fluticasone/Salmeterol 2 puff 06/26/25 08:00 07/01/25 08:23 Fluticasone/Salmeterol 115-21 Mcg Inhaler 1 Puff INHALATION 2 puff Q12HRT ZEE Administration Tramadol HCl 50 mg 06/26/25 05:24 07/01/25 01:55 Tramadol Hcl (*Crx) 50 Mg Tablet PO 50 mg Q4H PRN Administration Pain 7-10 Venlafaxine HCl 150 mg 06/26/25 09:00 07/01/25 08:34 Venlafaxine Hcl Xr 75 Mg Cap.Er.24h PO 150 mg QAM ZEE Administration Radiology Results: ITS Impressions Chest X-Ray 06/26/25 06:18 IMPRESSION: 1. No acute cardiopulmonary findings given portable technique. Chest CTA 06/26/25 06:20 IMPRESSION: 1. No PE or other acute cardiopulmonary findings. Upper Quadrant Ultrasound 06/30/25 17:15 Impression: Mild hepatic steatosis Venous Doppler Study 06/30/25 17:33 Impression: Negative for DVT. Labs Labs: Laboratory Results - last 24 hr 06/30/25 06/30/25 07/01/25 16:53 21:22 05:45 WBC 11.8 H RBC 3.78 L Hgb 11.2 L Hct 35.3 L MCV 93.4 MCH 29.6 MCHC 31.7 L RDW 16.4 H Plt Count 359 MPV 10.2 Immature Gran % (Auto) 2.2 H Neut % (Auto) 68.5 Lymph % (Auto) 19.5 [place] % (Auto) 8.9 H Eos % (Auto) 0.3 Baso % (Auto) 0.6 Lymph # (Auto) 2.31 [place] # (Auto) 1.1 H Eos # (Auto) 0.0 Baso # (Auto) 0.1 Abs Immat Gran (auto) 0.26 H Absolute Neuts (auto) 8.1 H Absolute Nucleated RBC 0.020 H Nucleated RBC % 0.2 Sodium 135 L Potassium 3.3 L Chloride 96 L Carbon Dioxide 34 H Anion Gap 5 BUN 15 Creatinine 0.75 Estim Creat Clear Calc 117 Estimated GFR > 60 Glucose 131 H POC Capillary Glucose 263 H 226 H Calcium 9.1 Magnesium 1.9 Total Bilirubin 0.4 AST 24 ALT 57 H Alkaline Phosphatase 69 Total Protein 6.3 Albumin 3.7 07/01/25 07/01/25 08:08 11:40 WBC RBC Hgb Hct MCV MCH MCHC RDW Plt Count MPV Immature Gran % (Auto) Neut % (Auto) Lymph % (Auto) [place] % (Auto) Eos % (Auto) Baso % (Auto) Lymph # (Auto) [place] # (Auto) Eos # (Auto) Baso # (Auto) Abs Immat Gran (auto) Absolute Neuts (auto) Absolute Nucleated RBC Nucleated RBC % Sodium Potassium Chloride Carbon Dioxide Anion Gap BUN Creatinine Estim Creat Clear Calc Estimated GFR Glucose POC Capillary Glucose 133 H 199 H Calcium Magnesium Total Bilirubin AST ALT Alkaline Phosphatase Total Protein Albumin
[2025-07-01] MEDS: POTASSIUM CHLORIDE 20 MEQ ER TABLET 40 MEQ PO (13:31)
[2025-07-01] MEDS: INSULIN ASPART (*BKC) 100 UNITS/ML SUB-Q ×2 (17:45→21:00)
[2025-07-01] MEDS: ATORVASTATIN 40 MG TABLET PO (21:04)
[2025-07-01] MEDS: DOXYCYCLINE HYCLATE 100 MG TABLET PO (21:04)
[2025-07-01] MEDS: FAMOTIDINE 20 MG TABLET PO (21:05)
[2025-07-01] MEDS: CYCLOBENZAPRINE HCL 10 MG TABLET PO (21:06)
[2025-07-01] MEDS: MAGNESIUM OXIDE 400 MG TABLET PO (21:06)
[2025-07-02] VITALS (7 sets, daily range): BP systolic 129–137; BP diastolic 68–83; PULSE 82–114; RESP 18–20; TEMP 35.8–36.5; O2SAT 97–98
[2025-07-02 05:41] LABS: Hematocrit 40.0 % (37.0-47.0); Hemoglobin 12.6 g/dL (12.0-15.0); Immature Granulocyte Percent A 2.3 % (0-0.5); Lymphocytes Absolute Auto 2.24 K/mm3 (0.9-3.2); Mean Corpuscular HGB Conc 31.5 g/dl (32-36); Mean Corpuscular Hemoglobin 29.4 pg (26-34); Mean Corpuscular Volume 93.2 fl (80-100); Nucleated Red Blood Cells Absolute Auto 0.030 K/mm3 (0.0-0.012); Nucleated Red Blood Cells Perc 0.2 % (0.0-0.2); Platelet Count Result 399 k/mm3 (150-375); Red Blood Count 4.29 M/mm3 (4.2-5.4); White Blood Count 13.2 K/mm3 (4.5-10.0)
[2025-07-02 06:03] LABS: Chloride 98 mmol/L (98-107); Potassium 3.4 mmol/L (3.4-5.0); Sodium 137 mmol/L (137-145)
[2025-07-02 06:32] LABS: Alanine Aminotransferase 60 U/L (6-35); Albumin Level 4.3 g/dL (3.5-5.1); Alkaline Phosphatase 73 U/L (38-126); Anion Gap 7 mmol/L (4-12); Aspartate Amino Transferase 31 U/L (14-36); Bilirubin,Total 0.5 mg/dL (0.2-1.3); Blood Urea Nitrogen 17 mg/dL (7-17); Calcium 9.8 mg/dL (8.4-10.2); Carbon Dioxide 32 mmol/L (22-30); Estimated CRCL calculation 116 ml/min; Estimated Glomerular Filt Rate > 60; Glucose 119 mg/dL (65-110); Magnesium 2.1 mg/dL (1.6-2.3); Total Protein 7.2 g/dL (6.3-8.2)
[2025-07-02] MEDS: FLUTICASONE/SALMETEROL 115-21 MCG INHALER 1 PUFF 2 PUFF INHALATION ×2 (07:03→20:34)
[2025-07-02] MEDS: LORATADINE 10 MG TABLET PO (09:10)
[2025-07-02] MEDS: FOLIC ACID 1 MG TABLET PO (09:10)
[2025-07-02] MEDS: ASCORBIC ACID 500 MG TABLET 1000 MG PO ×2 (09:10→21:11)
[2025-07-02] MEDS: ACETAMINOPHEN 500 MG TABLET 1000 MG PO ×2 (09:10→21:10)
[2025-07-02] MEDS: POTASSIUM CHLORIDE 20 MEQ ER TABLET PO (09:10)
[2025-07-02] MEDS: VENLAFAXINE HCL XR 75 MG CAP.ER.24H 150 MG PO (09:10)
[2025-07-02] MEDS: APIXABAN 5 MG TABLET PO ×2 (09:10→21:10)
[2025-07-02] MEDS: HYDROXYCHLOROQUINE SULFATE 200 MG TABLET PO ×2 (09:10→21:11)
[2025-07-02] MEDS: DOXYCYCLINE HYCLATE 100 MG TABLET PO ×2 (09:10→21:10)
[2025-07-02] MEDS: FERROUS SULFATE 325 MG TABLET PO (09:10)
[2025-07-02] MEDS: PANTOPRAZOLE 40 MG TABLET PO ×2 (09:10→21:17)
[2025-07-02] MEDS: FUROSEMIDE 40 MG TABLET PO ×2 (09:10→17:08)
[2025-07-02] MEDS: GABAPENTIN 300 MG CAPSULE PO ×3 (09:10→17:08)
[2025-07-02] MEDS: INSULIN GLARGINE (*BKC) 100 UNITS/ML 40 UNITS SUB-Q ×2 (09:13→21:11)
[2025-07-02] MEDS: METOPROLOL TARTRATE 25 MG TABLET PO ×2 (09:13→21:10)
[2025-07-02] MEDS: INSULIN ASPART (*BKC) 100 UNITS/ML 7 UNITS SUB-Q ×3 (09:15→17:08)
--- NOTE | 2025-07-02 11:43 | P.PNIM_ITS ---
Progress Note: A&P Assessment and Plan (1) Sepsis: Code(s): A41.9 - Sepsis, unspecified organism Status: Acute Assessment and Plan: SIRS present on admission with sinus tachycardia, elevated WBC and lactic acid osis. Probable sepsis with source being cellulitis Chest CTA showing no PE or other acute cardiopulmonary findings. UA was cloudy with negative LE/N, 6-10 WBC and many squamous cells. Did not reflex to UCx BCx (06/25): NGTD x 24hrs Started on Flagyl/Cefepime/Vanc (06/26) Prednisone continued. Clinically stable so will hold off on stress dose steroids Blood culture negative to date. Switch antibiotic or cefuroxime and doxycycline. WBC count trending up Add Flagyl (2) Cellulitis: Qualifiers: Site of cellulitis: extremity Site of cellulitis of extremity: lower extremity Laterality: right Qualified Code(s): L03.115 - Cellulitis of right lower limb Code(s): L03.90 - Cellulitis, unspecified Status: Acute Assessment and Plan: As above (3) Acute kidney injury: Code(s): N17.9 - Acute kidney failure, unspecified Status: Acute Assessment and Plan: Mild elevation of admission Cr to 1.08 but normal now Follow (4) Diabetes mellitus, insulin dependent (IDDM), uncontrolled: Status: Chronic Assessment and Plan: Continue AccuCheks covering with sliding scale. Hypoglycemia protocol available as needed. Continue Lantus and meal time insulin (5) Hyperosmolar hyponatremia: Code(s): E87.0 - Hyperosmolality and hypernatremia; E87.1 - Hypo-osmolality and hyponatremia Status: Acute Assessment and Plan: Sodium 133 on admission. The patient received 3 L of fluid in the ER. Baseline sodium low 130's range. Lasix held and was given IV fluids. Sodium stable. Lasix resumed. Will advance Lasix to BID dosing for a few days Follow Echo 08/27: Grade 1 diastolic dysfunction EF 60-65%. No significant valvular abnormality, no pulmonary hypertension. Will give a dose of Bumex (6) Autoimmune disease: Code(s): M35.9 - Systemic involvement of connective tissue, unspecified Status: Chronic Assessment and Plan: Patient has a known autoimmune disorder being followed by Rheumatology. Hydroxychloroquine and chronic prednisone resumed. She states that they are weaning Prednisone but she had symptoms at 35mg daily. She is on 45mg daily here so will cut back to 40mg daily but then hold until she sees her Stone Dresser Follow (7) JEREMY on CPAP: Code(s): G47.33 - Obstructive sleep apnea (adult) (pediatric) Status: Chronic Assessment and Plan: ABG noted. Continue CPAP at night and with naps. Plan DVT prophylaxis -Eliquis Code status -full Disp - start PT/OT Subjective Date/time seen: 07/02/25 11:43 Interval history: No overnight events. States leg is hurting more and is more red. Still weeping. Labs reviewed WBC count going up Review of Systems Review of Systems: All systems reviewed & are unremarkable except as noted in HPI and below Exam 2 Narrative: Gen - obese female with cushinoid features in NARD Chest - CTA bilaterally, nml RR CV - RRR S1/S2; Tele showing no significant dysrhythmias Abd - Soft, obese, NT, +BS Ext - LE edema persistent but improved Neuro - Alert and oriented. Nonfocal exam. Psych - Nml mood and affect. Skin - chronic venous stasis skin changes bilateral (R>L) LE Objective Data Vital Signs Vital Signs: Vital Signs - 24 hr 07/01/25 14:00 07/01/25 20:00 07/01/25 20:29 Temperature 96.1 F L Pulse Rate 100 96 Respiratory Rate 18 18 Blood Pressure 166/90 H Pulse Oximetry 94 Oxygen Delivery Room Air 07/01/25 20:31 07/01/25 20:49 07/01/25 21:04 Temperature 97 F L Pulse Rate 113 H 64 Respiratory Rate 18 Blood Pressure 115/79 Pulse Oximetry 98 96 Oxygen Delivery Room Air 07/02/25 05:52 07/02/25 08:00 07/02/25 09:13 Temperature 97.4 F L Pulse Rate 82 102 H 102 H Respiratory Rate 18 Blood Pressure 129/83 Pulse Oximetry 98 98 Oxygen Delivery Room Air Intake/Output Intake/Output: Intake & Output 06/29/25 06/30/25 07/01/25 07/02/25 23:59 23:59 23:59 23:59 Intake Total 3200 2180 2019 1240 Balance 3200 2180 2019 1240 Meds/Results Medications: Active Medications Generic Name Dose Route Start Last Admin Trade Name Freq PRN Reason Stop Dose Admin Acetaminophen 1,000 mg 06/26/25 09:00 07/02/25 09:10 Acetaminophen 500 Mg Tablet PO 1,000 mg Q12HR ZEE Administration Acetaminophen 500 mg 06/26/25 05:45 06/30/25 23:14 Acetaminophen 500 Mg Tablet BY MOUTH 500 mg Q6H PRN Administration PAIN 1-3 OR FEVER Albuterol 2.5 mg 06/26/25 05:14 Albuterol Sulfate Neb 2.5 Mg/3 Ml Inh INHALATION DAILYRT PRN Shortness Of Breath Apixaban 5 mg 06/26/25 09:00 07/02/25 09:10 Apixaban 5 Mg Tablet PO 5 mg Q12HR ZEE Administration Ascorbic Acid 1,000 mg 06/27/25 21:00 07/02/25 09:10 Ascorbic Acid 500 Mg Tablet PO 1,000 mg Q12HR ZEE Administration Atorvastatin Calcium 40 mg 06/27/25 21:00 07/01/25 21:04 Atorvastatin 40 Mg Tablet PO 40 mg HS ZEE Administration Cefuroxime Axetil 500 mg 07/01/25 21:00 07/02/25 09:10 Cefuroxime Axetil 250 Mg Tablet PO 500 mg Q12HR ZEE Administration Cyclobenzaprine HCl 10 mg 06/26/25 21:00 07/01/25 21:06 Cyclobenzaprine Hcl 10 Mg Tablet PO 10 mg HS ZEE Administration Dextrose 12.5 gm 06/26/25 05:25 Dextrose 50% 25 Gm/50 Ml Syringe IV PUSH PRN PRN Hypoglycemia Protocol Doxycycline Hyclate 100 mg 07/01/25 21:00 07/02/25 09:10 Doxycycline Hyclate 100 Mg Tablet PO 100 mg Q12HR ZEE Administration Famotidine 20 mg 06/26/25 21:00 07/01/25 21:05 Famotidine 20 Mg Tablet PO 20 mg HS ZEE Administration Ferrous Sulfate 325 mg 06/26/25 09:00 07/02/25 09:10 Ferrous Sulfate 325 Mg Tablet PO 325 mg DAILY ZEE Administration Folic Acid 1 mg 06/26/25 09:00 07/02/25 09:10 Folic Acid 1 Mg Tablet PO 1 mg DAILY ZEE Administration Furosemide 40 mg 06/29/25 17:00 07/02/25 09:10 Furosemide 40 Mg Tablet PO 40 mg BID ZEE Administration Gabapentin 300 mg 06/26/25 09:00 07/02/25 09:10 Gabapentin 300 Mg Capsule PO 300 mg TID ZEE Administration Glucagon 1 mg 06/26/25 05:25 Glucagon For Inj 1 Mg Vial IM PRN PRN Hypoglycemia Protocol Glucose 15 gm 06/26/25 05:25 Glucose Oral Gel 15 Gm Of Glucse In 37.5 Gm Tube PO PRN PRN Hypoglycemia Protocol Hydroxychloroquine Sulfate 200 mg 06/26/25 09:00 07/02/25 09:10 Hydroxychloroquine Sulfate 200 Mg Tablet PO 200 mg Q12HR ZEE Administration Dextrose 1,000 mls @ 100 mls/hr 06/26/25 05:25 Dextrose 5% 1,000 Ml IVPB PRN PRN Hypoglycemia Protocol Insulin Aspart 3 - 6 units 06/26/25 08:00 07/02/25 07:54 Insulin Aspart (*Bkc) 100 Units/Ml SUB-Q Not Given TIDWM [facility] Protocol Insulin Aspart 1 - 3 units 06/26/25 21:00 07/01/25 21:00 Insulin Aspart (*Bkc) 100 Units/Ml SUB-Q 2 units HS ZEE Administration Protocol Insulin Aspart 7 units 06/28/25 08:00 07/02/25 09:15 Insulin Aspart (*Bkc) 100 Units/Ml 0.05 units/kg (7 units) 7 units SUB-Q Administration TIDWM ZEE Insulin Glargine 40 units 06/27/25 21:00 07/02/25 09:13 Insulin Glargine (*Bkc) 100 Units/Ml SUB-Q 40 units Q12HR ZEE Administration Lisinopril 20 mg 06/26/25 21:00 07/01/25 21:07 Lisinopril 20 Mg Tablet PO 20 mg HS ZEE Administration Loratadine 10 mg 06/26/25 09:00 07/02/25 09:10 Loratadine 10 Mg Tablet PO 10 mg QAM ZEE Administration Magnesium Oxide 400 mg 06/26/25 21:00 07/01/25 21:06 Magnesium Oxide 400 Mg Tablet PO 400 mg HS ZEE Administration Metoprolol Tartrate 25 mg 06/26/25 09:00 07/02/25 09:13 Metoprolol Tartrate 25 Mg Tablet PO 25 mg Q12HR ZEE Administration Ondansetron HCl 4 mg 06/26/25 00:44 06/26/25 09:11 Ondansetron Inj 4 Mg/2 Ml Vial IV PUSH 4 mg Q4H PRN Administration Nausea Pantoprazole Sodium 40 mg 06/26/25 09:00 07/02/25 09:10 Pantoprazole 40 Mg Tablet PO 40 mg Q12HR ZEE Administration Potassium Chloride 20 meq 06/26/25 09:00 07/02/25 09:10 Potassium Chloride 20 Meq Er Tablet PO 20 meq DAILY ZEE Administration Prednisone 40 mg 06/26/25 08:00 07/02/25 09:10 Prednisone 20 Mg Tablet PO 40 mg DAILY@0800 ZEE Administration Fluticasone/Salmeterol 2 puff 06/26/25 08:00 07/02/25 07:03 Fluticasone/Salmeterol 115-21 Mcg Inhaler 1 Puff INHALATION 2 puff Q12HRT ZEE Administration Tramadol HCl 50 mg 06/26/25 05:24 07/01/25 01:55 Tramadol Hcl (*Crx) 50 Mg Tablet PO 50 mg Q4H PRN Administration Pain 7-10 Venlafaxine HCl 150 mg 06/26/25 09:00 07/02/25 09:10 Venlafaxine Hcl Xr 75 Mg Cap.Er.24h PO 150 mg QAM ZEE Administration Radiology Results: ITS Impressions Chest X-Ray 06/26/25 06:18 IMPRESSION: 1. No acute cardiopulmonary findings given portable technique. Chest CTA 06/26/25 06:20 IMPRESSION: 1. No PE or other acute cardiopulmonary findings. Upper Quadrant Ultrasound 06/30/25 17:15 Impression: Mild hepatic steatosis Venous Doppler Study 06/30/25 17:33 Impression: Negative for DVT. Labs Labs: Laboratory Results - last 24 hr 07/01/25 07/01/25 07/01/25 11:40 17:15 20:55 WBC RBC Hgb Hct MCV MCH MCHC RDW Plt Count MPV Immature Gran % (Auto) Neut % (Auto) Lymph % (Auto) [place] % (Auto) Eos % (Auto) Baso % (Auto) Lymph # (Auto) [place] # (Auto) Eos # (Auto) Baso # (Auto) Abs Immat Gran (auto) Absolute Neuts (auto) Absolute Nucleated RBC Nucleated RBC % Sodium Potassium Chloride Carbon Dioxide Anion Gap BUN Creatinine Estim Creat Clear Calc Estimated GFR Glucose POC Capillary Glucose 199 H 317 H 322 H Calcium Magnesium Total Bilirubin AST ALT Alkaline Phosphatase Total Protein Albumin 07/02/25 07/02/25 05:23 07:28 WBC 13.2 H RBC 4.29 Hgb 12.6 Hct 40.0 MCV 93.2 MCH 29.4 MCHC 31.5 L RDW 16.5 H Plt Count 399 H MPV 10.3 Immature Gran % (Auto) 2.3 H Neut % (Auto) 71.2 Lymph % (Auto) 17.0 L [place] % (Auto) 8.5 Eos % (Auto) 0.2 Baso % (Auto) 0.8 Lymph # (Auto) 2.24 [place] # (Auto) 1.1 H Eos # (Auto) 0.0 Baso # (Auto) 0.1 Abs Immat Gran (auto) 0.30 H Absolute Neuts (auto) 9.4 H Absolute Nucleated RBC 0.030 H Nucleated RBC % 0.2 Sodium 137 Potassium 3.4 Chloride 98 Carbon Dioxide 32 H Anion Gap 7 BUN 17 Creatinine 0.76 Estim Creat Clear Calc 116 Estimated GFR > 60 Glucose 119 H POC Capillary Glucose 121 H Calcium 9.8 Magnesium 2.1 Total Bilirubin 0.5 AST 31 ALT 60 H Alkaline Phosphatase 73 Total Protein 7.2 Albumin 4.3
[2025-07-02] MEDS: BUMETANIDE INJ 1 MG/4 ML VIAL IV PUSH (12:06)
[2025-07-02] MEDS: INSULIN ASPART (*BKC) 100 UNITS/ML SUB-Q ×3 (12:06→21:17)
[2025-07-02 12:39] LABS: CRP 1.1 mg/dL (<1.0)
[2025-07-02 12:48] LABS: Procalcitonin 0.1 ng/mL
[2025-07-02] MEDS: CYCLOBENZAPRINE HCL 10 MG TABLET PO (21:10)
[2025-07-02] MEDS: FAMOTIDINE 20 MG TABLET PO (21:10)
[2025-07-02] MEDS: ATORVASTATIN 40 MG TABLET PO (21:10)
[2025-07-02] MEDS: MAGNESIUM OXIDE 400 MG TABLET PO (21:10)
[2025-07-03 00:40] VITALS: PULSE 95; O2SAT 95
[2025-07-03 06:00] VITALS: BP 107/64; PULSE 87; RESP 18; TEMP 36.3; O2SAT 96
[2025-07-03 06:05] LABS: Hematocrit 38.7 % (37.0-47.0); Hemoglobin 12.0 g/dL (12.0-15.0); Immature Granulocyte Percent A 1.4 % (0-0.5); Lymphocytes Absolute Auto 2.22 K/mm3 (0.9-3.2); Mean Corpuscular HGB Conc 31.0 g/dl (32-36); Mean Corpuscular Hemoglobin 29.4 pg (26-34); Mean Corpuscular Volume 94.9 fl (80-100); Nucleated Red Blood Cells Absolute Auto 0.000 K/mm3 (0.0-0.012); Nucleated Red Blood Cells Perc 0.0 % (0.0-0.2); Platelet Count Result 381 k/mm3 (150-375); Red Blood Count 4.08 M/mm3 (4.2-5.4); White Blood Count 12.7 K/mm3 (4.5-10.0)
[2025-07-03 06:20] LABS: Alanine Aminotransferase 55 U/L (6-35); Albumin Level 4.0 g/dL (3.5-5.1); Alkaline Phosphatase 66 U/L (38-126); Anion Gap 3 mmol/L (4-12); Aspartate Amino Transferase 24 U/L (14-36); Bilirubin,Total 0.5 mg/dL (0.2-1.3); Blood Urea Nitrogen 21 mg/dL (7-17); Calcium 9.5 mg/dL (8.4-10.2); Carbon Dioxide 37 mmol/L (22-30); Chloride 96 mmol/L (98-107); Estimated CRCL calculation 107 ml/min; Estimated Glomerular Filt Rate > 60; Glucose 127 mg/dL (65-110); Magnesium 2.1 mg/dL (1.6-2.3); Potassium 3.2 mmol/L (3.4-5.0); Sodium 136 mmol/L (137-145); Total Protein 6.8 g/dL (6.3-8.2)
[2025-07-03 07:44] VITALS: PULSE 90; RESP 14
[2025-07-03] MEDS: FLUTICASONE/SALMETEROL 115-21 MCG INHALER 1 PUFF 2 PUFF INHALATION (07:45)
[2025-07-03 07:47] VITALS: PULSE 90; RESP 14; O2SAT 96
[2025-07-03] MEDS: HYDROXYCHLOROQUINE SULFATE 200 MG TABLET PO (09:42)
[2025-07-03] MEDS: LORATADINE 10 MG TABLET PO (09:42)
[2025-07-03] MEDS: FOLIC ACID 1 MG TABLET PO (09:42)
[2025-07-03] MEDS: GABAPENTIN 300 MG CAPSULE PO (09:42)
[2025-07-03] MEDS: ACETAMINOPHEN 500 MG TABLET 1000 MG PO (09:42)
[2025-07-03] MEDS: DOXYCYCLINE HYCLATE 100 MG TABLET PO (09:42)
[2025-07-03 09:43] VITALS: PULSE 90
[2025-07-03] MEDS: PANTOPRAZOLE 40 MG TABLET PO (09:43)
[2025-07-03] MEDS: FUROSEMIDE 40 MG TABLET PO (09:43)
[2025-07-03] MEDS: METOPROLOL TARTRATE 25 MG TABLET PO (09:43)
[2025-07-03] MEDS: POTASSIUM CHLORIDE 20 MEQ ER TABLET PO (09:43)
[2025-07-03] MEDS: APIXABAN 5 MG TABLET PO (09:43)
[2025-07-03] MEDS: FERROUS SULFATE 325 MG TABLET PO (09:43)
[2025-07-03] MEDS: POTASSIUM CHLORIDE 20 MEQ ER TABLET 40 MEQ PO (09:44)
[2025-07-03] MEDS: ASCORBIC ACID 500 MG TABLET 1000 MG PO (09:44)
[2025-07-03] MEDS: VENLAFAXINE HCL XR 75 MG CAP.ER.24H 150 MG PO (09:44)
[2025-07-03] MEDS: INSULIN ASPART (*BKC) 100 UNITS/ML 7 UNITS SUB-Q (09:51)
[2025-07-03] MEDS: INSULIN GLARGINE (*BKC) 100 UNITS/ML 40 UNITS SUB-Q (09:52)
--- NOTE | 2025-07-03 10:50 | PCNWS ---
Weekly nutritional screen. Patient is tolerating current Diabetic consistent carb diet with adequate intake. 100% intakes, did not feel like breakfast today. No weight loss reported. No nutritional needs at this time.
--- NOTE | 2025-07-03 11:36 | P.DS_ITS ---
DS: Admitting Diagnosis Discharge Date 07/03/2025 Admitting Diagnosis cellulitis DS: Discharge Diagnosis Discharge Diagnosis (1) Sepsis: Code(s): A41.9 - Sepsis, unspecified organism Status: Acute (2) Cellulitis: Qualifiers: Site of cellulitis: extremity Site of cellulitis of extremity: lower extremity Laterality: right Qualified Code(s): L03.115 - Cellulitis of right lower limb Code(s): L03.90 - Cellulitis, unspecified Status: Acute (3) Acute kidney injury: Code(s): N17.9 - Acute kidney failure, unspecified Status: Acute (4) Diabetes mellitus, insulin dependent (IDDM), uncontrolled: Status: Chronic (5) Hyperosmolar hyponatremia: Code(s): E87.0 - Hyperosmolality and hypernatremia; E87.1 - Hypo-osmolality and hy ponatremia Status: Acute (6) Autoimmune disease: Code(s): M35.9 - Systemic involvement of connective tissue, unspecified Status: Chronic (7) JEREMY on CPAP: Code(s): G47.33 - Obstructive sleep apnea (adult) (pediatric) Status: Chronic DS: Summary Hospital Course Hospital Course: # Sepsis: SIRS present on admission with sinus tachycardia, elevated WBC and lactic acidosis. Probable sepsis with source being cellulitis Chest CTA showing no PE or other acute cardiopulmonary findings. UA was cloudy with negative LE/N, 6-10 WBC and many squamous cells. Did not reflex to UCx BCx (06/25): NGTD x 24hrs Started on Flagyl/Cefepime/Vanc (06/26) Prednisone continued. Clinically stable so will hold off on stress dose steroids Blood culture negative to date. Switch antibiotic or cefuroxime and doxycycline. WBC count trending up but now improving Add Flagyl continue antibiotics to finish the course # Cellulitis: As above # Acute kidney injury: Mild elevation of admission Cr to 1.08 but normal now Follow # Diabetes mellitus, insulin dependent (IDDM), uncontrolled: Continue AccuCheks covering with sliding scale. Hypoglycemia protocol available as needed. Continue Lantus and meal time insulin # Hyperosmolar hyponatremia: Sodium 133 on admission. The patient received 3 L of fluid in the ER. Baseline sodium low 130's range. Lasix held and was given IV fluids. Sodium stable. Lasix resumed. Will advance Lasix to BID dosing for a few days Follow Echo 08/27: Grade 1 diastolic dysfunction EF 60-65%. No significant valvular abnormality, no pulmonary hypertension. received # Autoimmune disease: Patient has a known autoimmune disorder being followed by Rheumatology. Hydroxychloroquine and chronic prednisone resumed. She states that they are weaning Prednisone but she had symptoms at 35mg daily. 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 Continue CPAP at night and with naps. # DVT prophylaxis -Eliquis # Code status -full # Disp - home with oral antibiotics Time Spent with Patient Time attestation: Total time spent providing and/or coordinating discharge services: Exam Narrative: Gen - obese female with cushinoid features in NARD Chest - CTA bilaterally, nml RR CV - RRR S1/S2; Tele showing no significant dysrhythmias Abd - Soft, obese, NT, +BS Ext - LE edema persistent but improved Neuro - Alert and oriented. Nonfocal exam. Psych - Nml mood and affect. Skin - chronic venous stasis skin changes bilateral (R>L) LE DS: Data Data Completed and Pending Labs on day of discharge: Labs from last 24 hours 07/03/25 07/03/25 07/02/25 07:50 04:58 19:50 WBC 12.7 H RBC 4.08 L Hgb 12.0 Hct 38.7 MCV 94.9 MCH 29.4 MCHC 31.0 L RDW 16.3 H Plt Count 381 H MPV 10.3 Immature Gran % (Auto) 1.4 H Neut % (Auto) 72.1 Lymph % (Auto) 17.5 L [place] % (Auto) 8.3 Eos % (Auto) 0.3 Baso % (Auto) 0.4 Lymph # (Auto) 2.22 [place] # (Auto) 1.1 H Eos # (Auto) 0.0 Baso # (Auto) 0.1 Abs Immat Gran (auto) 0.18 H Absolute Neuts (auto) 9.1 H Absolute Nucleated RBC 0.000 Nucleated RBC % 0.0 Sodium 136 L Potassium 3.2 L Chloride 96 L Carbon Dioxide 37 H Anion Gap 3 L BUN 21 H Creatinine 0.83 Estim Creat Clear Calc 107 Estimated GFR > 60 Glucose 127 H POC Capillary Glucose 113 H 450 H Calcium 9.5 Magnesium 2.1 Total Bilirubin 0.5 AST 24 ALT 55 H Alkaline Phosphatase 66 C-Reactive Protein Total Protein 6.8 Albumin 4.0 Procalcitonin 07/02/25 07/02/25 07/02/25 16:43 11:24 05:23 WBC RBC Hgb Hct MCV MCH MCHC RDW Plt Count MPV Immature Gran % (Auto) Neut % (Auto) Lymph % (Auto) [place] % (Auto) Eos % (Auto) Baso % (Auto) Lymph # (Auto) [place] # (Auto) Eos # (Auto) Baso # (Auto) Abs Immat Gran (auto) Absolute Neuts (auto) Absolute Nucleated RBC Nucleated RBC % Sodium Potassium Chloride Carbon Dioxide Anion Gap BUN Creatinine Estim Creat Clear Calc Estimated GFR Glucose POC Capillary Glucose 357 H 283 H Calcium Magnesium Total Bilirubin AST ALT Alkaline Phosphatase C-Reactive Protein 1.1 Total Protein Albumin Procalcitonin 0.1 Imaging Radiologist's impression: ITS Impressions Chest X-Ray 06/26/25 06:18 IMPRESSION: 1. No acute cardiopulmonary findings given portable technique. Chest CTA 06/26/25 06:20 IMPRESSION: 1. No PE or other acute cardiopulmonary findings. Upper Quadrant Ultrasound 06/30/25 17:15 Impression: Mild hepatic steatosis Venous Doppler Study 06/30/25 17:33 Impression: Negative for DVT. Discharge Plan Discharge Attending physician on discharge: Tboin Tate Consulting providers: Michael, Ashleigh Gant Discharging Clinician: Tobin Tate Anticipated Discharge Date/Time: 07/03/25 11:41 Patient Disposition: Home Activity: as tolerated Diet: heart healthy Patient Instructions: Antibiotic Form, Apixaban (By mouth) Patient Language: Italian Stand Alone Forms: General Discharge Information Follow-up/Referrals: PHYSICIAN NOT ON STAFF,NONSTAFF [Primary Care Provider] - 1 Week Discharge Medications: New cefuroxime axetil 250 mg Tablet 500 mg PO Q12HR Qty: 10 0RF doxycycline hyclate 100 mg Tablet 100 mg PO Q12HR Qty: 10 0RF metronidazole 500 mg Tablet 500 mg PO Q8HR Qty: 15 0RF bumetanide 1 mg tablet 1 mg PO BID Qty: 60 0RF metoprolol tartrate 25 mg Tablet 25 mg PO Q12HR Qty: 60 0RF Continued atorvastatin 20 mg tablet 40 mg PO HS venlafaxine 150 mg capsule,extended release 24hr 150 mg PO QAM Lorenza Flood U-100 Insulin 100 unit/mL insulin pen 1 sliding scale dose SUBCUT AC Rx Instructions: For blood sugar of 150 or less administer 18 units for breakfast, 20 units for lunch, 22 units for dinner. for blood sugar per 25 points greater than 150 administer 1 unit per 25 over Mounjaro 5 mg/0.5 mL pen injector 12.5 mg SUBCUT WEEKLY Patient Comments: on Saturdays tramadol 50 mg Tablet 50 mg PO Q4H PRN (Reason: Severe pain) Qty: 15 0RF glucosamine-chondroitin 1,500 mg PO DAILY Rx Instructions: 1500mg/1103mg ascorbic acid (vitamin C) 1,000 mg tablet 1,000 mg PO .Q12hr Rx Instructions: patient takes gummies omeprazole 40 mg capsule,delayed release(DR/EC) 40 mg PO DAILY ferrous sulfate [iron] 325 mg (65 mg iron) tablet 325 mg PO DAILY Rituxan 10 mg/mL concentrate See Rx Instructions IV [id number] Rx Instructions: intravenously every 6 months; buprenorphine HCl 150 mcg film 150 mcg buccal Q12H Eliquis 5 mg Tablet 5 mg PO Q12HR Qty: 60 0RF albuterol sulfate 2.5 mg /3 mL (0.083 %) solution for nebulization 2.5 mg inhalation DAILY PRN (Reason: Shortness Of Breath) cetirizine [All Day Allergy (cetirizine)] 10 mg Tablet 10 mg PO DAILY ergocalciferol (vitamin D2) 50,000 unit PO .COMPLEX Patient Comments: Patient takes on Wednesdays and Sundays Rx Instructions: 50,000 units orally twice a week; lisinopril 20 mg tablet 40 mg PO HS folic acid 1 mg tablet 1 mg PO DAILY hydroxychloroquine 200 mg tablet 200 mg PO BID insulin glargine [Lantus Solostar U-100 Insulin] 100 unit/mL (3 mL) insulin pen 45 unit SUBCUT BID Patient Comments: in the morning and evening magnesium 200 mg tablet 400 mg PO HS famotidine [Acid Controller] 20 mg tablet 20 mg PO HS acetaminophen 500 mg Tablet 1,000 mg PO BID albuterol sulfate 90 mcg/actuation HFA aerosol inhaler 2 puff INHALATION Q8H PRN (Reason: shortness of breath or wheezing) gabapentin 300 mg capsule 300 mg PO TID budesonide-formoterol [Breyna] 160-4.5 mcg/actuation HFA aerosol inhaler 2 puff INHALATION BID cyclobenzaprine 10 mg tablet 10 mg PO HS prednisone 10 mg tablet 35 mg PO DAILY@0800 Rx Instructions: 3.5 tablets a day for 30 days with the 1st dose being on the 2nd of the month. Then decrease to 3 tablets a day for 30 days. Then decreased to 2.5 tablets a day for 30 days and continue in a sequential fashion by decreasing by half a tablet every 30 days until weaned off of prednisone Changed potassium chloride [Klor-Con M20] 20 mEq tablet,ER particles/crystals 20 meq PO BIDWM Qty: 60 0RF Discontinued metoprolol tartrate 25 mg tablet 12.5 mg PO BID 30 Days Qty: 30 0RF furosemide [Lasix] 40 mg tablet 40 mg PO DAILY Other Ambulatory Orders: Complete Blood Count with Diff (Routine) Timeframe: 1 Week Location: Determined by Patient Ordered By: Tobin Tate Comprehensive Metabolic Panel (Routine) Timeframe: 1 Week Location: Determined by Patient Ordered By: Tobin Tate Date of admission: 06/26/25 12:16 Primary Care Provider: PHYSICIAN NOT ON STAFF,NONSTAFF Admitting Provider: Marj Hernández Attending physician on admission: Marj Hernández Condition: Stable
== END 2025-07-03 12:26 | disposition home or self-care (01) | DRG 872 ==
LOC: ANHED 20:21 → ANH3MED 06-26 01:18
PROVIDERS: Internal Medicine; Admitting Provider Internal Medicine; Emergency Provider Student in an Organized Health Care Education/Training Program; Visit Provider Internal Medicine
DX: A41.9 Sepsis, unspecified organism (principal); L03.115 Cellulitis of right lower limb; L97.219 Non-pressure chronic ulcer of right calf with unspecified severity; N17.9 Acute kidney failure, unspecified; E87.1 Hypo-osmolality and hyponatremia; I50.32 Chronic diastolic (congestive) heart failure; Z68.43 Body mass index [BMI] 50.0-59.9, adult; I11.0 Hypertensive heart disease with heart failure; I77.6 Arteritis, unspecified; I87.2 Venous insufficiency (chronic) (peripheral); E11.65 Type 2 diabetes mellitus with hyperglycemia; E78.00 Pure hypercholesterolemia, unspecified; E66.01 Morbid (severe) obesity due to excess calories; K76.0 Fatty (change of) liver, not elsewhere classified; R00.0 Tachycardia, unspecified; M35.9 Systemic involvement of connective tissue, unspecified; G47.33 Obstructive sleep apnea (adult) (pediatric); F32.A Depression, unspecified; Z20.822 Contact with and (suspected) exposure to COVID-19; Z86.718 Personal history of other venous thrombosis and embolism; Z79.01 Long term (current) use of anticoagulants; Z79.52 Long term (current) use of 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s; Z79.4 Long term (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; R09.02 Hypoxemia
CPT/HCPCS: 36415; 36600; 71045; 71275; 76705; 80048; 80053; 80069; 80202; 81001; 81025; 82375; 82550; 82805; 82948; 83050; 83605; 83735; 83880; 84100; 84145; 85018; 85025; 85027; 85610; 85730; 86140; 87040; 87637; 93005; 93970; 94640; 96365; 96367; 96375; 97110; 97116; 97162; 97165; 99285; A9270; G0378; J0692; J1171; J1815; J1836; J1938; J1939; J2405; J3373; J7120; J7512; Q9967